=== PATIENT | female | born 1945 | race Caucasian/White ===

== ENCOUNTER 2025-03-08 14:00 | Outpatient (RCR) | payer MEDICARE, SELFPAY ==
[2025-03-01 13:36] VITALS: BP 125/62; PULSE 79; RESP 18; TEMP 36.4; BMI 20.5
--- NOTE | 2025-03-01 14:28 | WC ---
PHOTO 03/01/25 RIGHT GREAT TOE
--- NOTE | 2025-03-01 15:23 | HP.PCM_ITS ---
History of Present Illness Date of Service: 03/01/25 Chief Complaint: Full-thickness wound dorsal aspect first metatarsal phalangeal joint right foot History of Wound: Small full-thickness wound to the dorsal aspect of the first metatarsophalangeal joint right foot Progress of Wound: Patient is a 80-year-old female presenting to clinic today with a chief complaint of full-thickness wound to the dorsal aspect of the big toe joint of the right foot. Patient states that it is painful with touch and while at rest. She does have swelling in the right lower extremity when compared to the left. She was referred by her primary care doctor for continued treatment and care. Patient admits to finishing a course of Augmentin 875 twice daily for 7 days which was prescribed for 10 days due to diarrhea but has now improved. Treatment has been conservative at this time. She denies any debridement of the full-thickness wound. She denies trauma. Denies constitutional symptoms. No other pedal complaints at this time. [facility] Home Medications Medication Instructions Recorded Last Taken Type amlodipine 2.5 mg tablet 2.5 mg PO DAILY 03/01/25 Unk nown History apixaban 5 mg tablet (Eliquis) 5 mg PO BID 03/01/25 Un known History atovaquone 750 mg/5 mL oral 1,500 mg PO DAILY 03/01/25 Unknown History suspension blood sugar diagnostic (Contour 03/01/25 Unknown Hist ory Next Test Strips) cyclobenzaprine 5 mg tablet 5 mg PO QHS PRN PRN muscle spasm 03/01/25 Unknown History ezetimibe 10 mg tablet 10 mg PO DAILY 03/01/25 Unkn own History finerenone 10 mg tablet (Kerendia) 10 mg PO DAILY 02/14 02/08 Unknown History furosemide 20 mg tablet 20 mg PO QODAY 03/01/25 Unkn own History gabapentin 100 mg capsule 100 mg PO QHS 03/01/25 Unkno wn History icosapent ethyl 1 gram capsule 2 g PO BID 03/01/25 Unk nown History (Vascepa) linagliptin 2.5 mg-metformin ER tab PO 03/01/25 Unknow n History 1,000 mg tablet,extended release 24 hr (Jentadueto XR) mupirocin 2 % topical ointment topical TID 03/01/25 Un known History pantoprazole 40 mg tablet,delayed 40 mg PO 03/01/25 Un known History release rosuvastatin 10 mg tablet 10 mg PO DAILY 03/01/25 Unkn own History tiotropium bromide 2.5 2 puff inhalation DAILY 02/14 02/08 Unknown History mcg/actuation mist for inhalation (Spiriva Respimat) Allergy/AdvReac Type Severity Reaction Status Date / Time blue dye Allergy Severe Anaphylaxis Verified 03/01/25 14:22 Sulfa (Sulfonamide Allergy Rash Verified 03/01/25 14:22 Antibiotics) Social History Smoking Status: Never smoker Vital Signs Vital Signs Vital Signs: 03/01/25 13:36 Temperature 97.6 F L Temperature Source Temporal Pulse Rate 79 Respiratory Rate 18 Blood Pressure 125/62 H Blood Pressure Mean 83 Blood Pressure Source Monitor Blood Pressure Position Sitting Blood Pressure Location Left Arm Oxygen Delivery Method Room Air Weight Weight: 59.421 kg Body Mass Index (BMI) 20.5 Physical Exam Narrative Vascular: DP and PT pulses are faintly palpable to the right lower extremity. CFT is delayed. Nonpitting edema appreciated to the right lower extremity when compared to the left. No evidence of hemosiderin deposits are appreciated. Neurological: Light touch is intact. Patient does respond to painful stimuli. Dermatological: Full-thickness wound to the dorsal aspect of the first metatarsal phalangeal joint right foot measuring 0.2 x 0.3 x 0.1 cm. Wound base is granular with no sign of infection. Erythema is blanchable as well as dependent. Excisional debridement down to including subcutaneous tissue with a number 1 mm dermal curette to the full-thickness wound dorsal aspect first metatarsophalangeal joint right foot without incident. Predebridement with sanguinous crust. Postdebridement measurement 0.2 x 0.3 x 0.1 cm. Musculoskeletal: Mild pain to palpation of the full-thickness wound right foot. No pain with calf pressure. Debridement Note Debridement Note Debridement Free Text: Excisional debridement down to including subcutaneous tissue with a number 1 mm dermal curette to the full-thickness wound dorsal aspect first metatarsophalangeal joint right foot without incident. Predebridement with sanguinous crust. Postdebridement measurement 0.2 x 0.3 x 0.1 cm. Post-Debridement Measurements and Additional Note: Post-Debridement Measurements/Treatment WC - Nurse 1 - General Ulcer Assessment Start: 03/01/25 13:36 Freq: Status: Active Protocol: EDUARD.LINDA Activity Type Activity Date Activity User E-sign Co-sign Detail Recorded Client Recorded Date Recorded By Document 03/01/25 13:36 KW [id number] 03/01/25 13:59 KW 03/01/25 13:36 WC - Today's Visit Information Type of service Initial Visit Arrival Mode Ambulatory Accompanied by son- aimee Patient Identification Verified (Name & Yes ) Height and Weight Height 5 ft 7 in Weight 59.421 kg Weight in Pounds 131.0 lbs Weight Measurement Method Estimated by Patient Body Mass Index (BMI) 20.5 BMI Classification Normal Vital Signs Temperature (97.8 F-99.1 F) 97.6 F L Temperature Source Temporal Pulse Rate (60-100) 79 Pulse Location Monitor Respiratory Rate (12-18) 18 Respiratory rate source Observation Oxygen Delivery Method Room Air Blood Pressure (90/60-120/80) 125/62 H Blood Pressure Mean 83 Source Monitor Position Sitting Blood Pressure Location Left Arm History Since Last Visit- (Skip if this is Patient's initial visit) Left Footwear Regular Shoe Right Footwear Regular Shoe Pain Scale: 0-10 Numeric Is Patient Pain Free? No RT FOOT -Description Burning,Aching, Cramping -Radiation Location CALF -Alleviating Factors/Interventions Medication -Effectiveness of Alleviating Factor/ Minimally Intervention effective Lower Extremity Assessment/ Foot Assessment/ Toe Nail Assessment Left -Posterior Tibial Doppler Inaudible -Dorsalis Pedis Doppler Monophasic -Extremity Color Pale -Hair Growth on Legs No -Hair Growth on Toes No -Temperature of Extremity Cool -Thick No -Discolored No -Deformed No -Improper Length & Hygeine No Right -Posterior Tibial Doppler Inaudible -Dorsalis Pedis Doppler Monophasic -Extremity Color Pale -Hair Growth on Legs No -Hair Growth on Toes No -Temperature of Extremity Cool -Thick No -Discolored No -Deformed No -Improper Length & Hygeine No Neuropathy Assessment Feet - Top Side and Bottom <Entered> (a) Communication Assessment Preferred language [place]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 Able to Read Yes Able to Write Yes Communication Tools None Caregiver Communication Skills No Impairment Impairment Right Hearing Abillity Normal Left Hearing Abillity Normal Visual Assistive Devices None Teaching Assessment Preferences Verbal,Written, Demonstration Barriers to Learning None Readiness To Learn Excellent Willingness to Engage in Self Management High Activies Readiness to Engage in Self Management High Activities Anxiety Level Calm Cooperation Cooperative Perception Coherent Interest in Health Problem Asks Questions Education Importance Acknowledges Need Does Patient Smoke tobacco or other No substances Smoking Status Never smoker Is Patient Diabetic Yes Functional Assessment Recent Decline in Ability to Perform Denies Any Declines (a) 1 - - - 2 - + + WC - Nurse 1 - General Ulcer Measurement Start: 03/01/25 13:36 Freq: Status: Active Protocol: Activity Type Activity Date Activity User E-sign Co-sign Detail Recorded Client Recorded Date Recorded By Document 03/01/25 13:36 [id number] 03/01/25 13:59 03/01/25 13:36 Wound Center Nurse 1 #1 RT HALLUX -Current Size (cm) - Length 0.1 -Current Size (cm) - Width 0.1 -Current Size (cm) - Depth 0 -Total Square Cm 0.01 -Date of Last Picture (Recall this 03/01/25 field) -Exudate Amt None Present -Wound Margin Distinct, Outline Attached -Texture (Lady-wound Skin Appearance) Assessed -Moisture (Lady-wound Skin Appearance) Assessed -Color (Lady-wound Skin Appearance) Assessed -Temperature (Lady-wound Skin No Abnormality Appearance) (Pt Warm) -Tenderness on Palpation (Lady-wound No Skin Appearance) -Ulcer Cleansing Soap and Water -Foul Odor after Cleansing No -Anesthetic Used 5% Lidocaine Gel Right Calf (cm) 27 Right Ankle (cm) 19.5 WC - Nurse 2 - General Ulcer CM Notes Start: 03/01/25 13:36 Freq: Status: Active Protocol: Activity Type Activity Date Activity User E-sign Co-sign Detail Recorded Client Recorded Date Recorded By Document 03/01/25 14:13 [id number] [id number] 03/01/25 14:18 03/01/25 14:13 Wound Center Nurse 2 #1 RT HALLUX -Time 14:17 -Correct Patient Yes -Correct Side, Site, Position Yes -Correct Procedure Yes -Procedure Performed Yes -Type of Procedure Debridement -Clinical Debridement Subcutaneous -Tissue Removed Subcutaneous -Post Debridement (cm) - Length 0.2 -Post Debridement (cm) - Width 0.3 -Post Debridement (cm) - Depth 0.1 -Total Square (Post) (cm) 0.06 -Area of Debridement (cm) - Length 0.2 -Area of Debridement (cm) - Width 0.3 -Total Square (Area) (cm) 0.06 -Tunneling No -Undermining/Tunneling No -Circular Undermining No -Wound/Ulcer Outcome Not Healed -Ulcer Cleansing Rinsed/ Irrigated with Saline -Foul Odor after Cleansing No -Bioengineered Tissue No -Bleeding Controlled with Pressure -Treatment Response Procedure Tolerated Well -Offloading No -Debridement - Subq, 1st 20sq cm Yes Pain Scale: 0-10 Numeric Is Patient Pain Free? Yes Assessment/Plan Assessment/Plan (1) Non-pressure chronic ulcer of other part of right foot with fat layer exposed: CODE(S): L97.512 - Non-pressure chronic ulcer of other part of right foot with fat layer exposed PLAN: Patient was examined and evaluated. All findings were discussed with the patient. All questions were answered to the patient's satisfaction. Excisional debridement down to including subcutaneous tissue with a number 1 mm dermal curette to the full-thickness wound dorsal aspect first metatarsophalangeal joint right foot without incident. Predebridement with sanguinous crust. Postdebridement measurement 0.2 x 0.3 x 0.1 cm. There is white plain and patted dry. Triple antibiotic and sterile Band-Aid was applied followed by Tubigrip. Will move forward with authorization of the patient insurance for arterial and venous studies to rule out any type of artery or venous insufficiency. At this time the patient is not showing any concern for infection to the dorsal aspect of the right foot. The erythema around the wound is dependent and inflammatory in nature. The patient will need compression as we continue treatment. Regarding the patient need to move forward with back surgery I do not see any limitations that would stop the presurgical planning. Follow-up at the wound care center with Dr. Francisco in 1 week. (2) Other specified peripheral vascular diseases: CODE(S): I73.89 - Other specified peripheral vascular diseases
--- NOTE | 2025-03-07 09:06 | VDLE_ITS ---
Reason For Study Reason For Study: Edema, Foot Ulcer RIGHT LEFT CFV is compressible, spontaneous, phasic, competent CFV is compressible, spontaneous, phasic, competent, and demonstrates normal augmentation. and demonstrates normal augmentation. FV is compressible, spontaneous, phasic, competent FV is compressible, spontaneous, phasic, competent and demonstrates normal augmentation. and demonstrates normal augmentation. POP V is compressible, spontaneous, phasic, competent POP V is compressible, spontaneous, phasic, competent and demonstrates normal augmentation. and demonstrates normal augmentation. T/P Trunk is compressible. T/P Trunk is compressible. PTV is compressible. PTV is compressible. RT PerV is compressible. LT PerV is compressible. SFJ is INCOMPETENT and measures 0.52 cm. SFJ is competent and measures 0.69 cm. GSV proximal thigh measures 0.34x0.39 cm. GSV proximal thigh measures 0.22x0.18 cm. GSV at knee measures 0.22x0.20 cm. GSV at knee measures 0.17x0.16 cm. GSV is competent throughout. GSV is competent throughout. SSV mid calf is competent and measures 0.17x0.18 cm. SSV mid calf is competent and measures 0.15x0.18 cm. Procedure Exam performed in department. This is a venous duplex using B-mode, color flow and spectral Doppler. The exam was diagnostic. Patient was scanned in reverse Trendelenburg position during reflux assessment. VL/Venous Duplex US - Mode Extrem Interpretation Summary Deep veins of the lower extremities are bilaterally patent and compressible seg mentally. There is no evidence of deep vein thrombosis on either side. Valvular competence appears intact within the p roximal deep venous systems bilaterally. The great saphenous veins appear bilaterally patent and compressible segmentall y. The right sapheno-femoral junction is incompetent . The left sapheno-femoral junction is competent . Valvular compete nce appears to be intact segmentally within the great saphenous veins bilaterally. Small saphenous veins are patent and competent bilaterally. Ordering Physician: Emil Francisco Referring Physician: Celia Al Performed By: Monique Cuellar RVT
--- NOTE | 2025-03-07 09:06 | ART_ITS ---
Reason For Study Reason For Study: Edema, Rt Foot ulcer Procedure A bilateral lower extremity continuous wave Doppler with analog waveform analysis,segmental pressures,and ankle brachial indexes without exercise. Preliminary report given to [facility] Nurse. Left Segmental Pressures Left brachial= 178mmHg. Left calf = 182mmHg. Left posterior tibial artery = 117mmHg. Left dorsalis pedis artery = 110mmHg. Left digit = 58 mmHg. The left dorsalis pedis waveforms are triphasic. The left posterior tibial artery waveforms are biphasic. Right Segmental Pressures Right brachial= 177mmHg. Right low thigh = 46mmHg. Right calf = 110mmHg. Right posterior tibial artery = 21mmHg. Right dorsalis pedis artery = 39mmHg. The right dorsalis pedis waveforms are monophasic. The right posterior tibial artery waveforms are monophasic. Indices The right ankle brachial index by the dorsalis pedis is 0.22. The right ankle brachial index by the posterior tibial artery is 0.12. The left ankle brachial index by the dorsalis pedis is 0.62. The left ankle brachial index by the posterior tibial artery is 0.66. The left digital-brachial index is 0.33. VL/Lower Ext Art Exam w/o Exercis Interpretation Summary Monophasic Doppler waveforms are noted at ankle level on the right. Biphasic an d triphasic Doppler waveforms are noted at ankle level on the left. Pulse-volume recordings appear diminished at all le vels on the right, and at digital level on the left. The resting right ankle-brachial index is severely diminished. The resting left ankle-brachial index is moderately diminished. The right digital-brachial index was not determined. The left digital-brachial index is moderately to severely diminished. 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 There is evidence of [id number] multi-segmental arterial occlu sive disease in the left lower extremity. Ordering Physician: Emil Francisco Referring Physician: Celia Al DO Performed By: GOKUL VASQUEZ RVT
--- NOTE | 2025-03-08 07:38 | WC ---
on 03/07/25 dr hyman requested pt be referred to vascular regarding arterial study results, to be seen constance. referral faxed over, chichi allan updated, pt made aware. pt has appt at vascular today, prior to wound center appt this afternoon.
[2025-03-08 14:27] VITALS: BP 135/59; PULSE 79; RESP 18; TEMP 36.6; BMI 20.5
--- NOTE | 2025-03-08 16:47 | PCM.WC.PN ---
History of Present Illness Date of Service: 03/08/25 Chief Complaint: Full-thickness wound dorsal aspect first metatarsal phalangeal joint right foot History of Wound: Small full-thickness wound to the dorsal aspect of the first metatarsophalangeal joint right foot Progress of Wound: Healed full-thickness wound to the right dorsal aspect of the first metatarsal phalangeal joint. Subjective Subjective Patient is a 80-year-old female presenting to clinic today for follow-up evaluation of full-thickness wound to the dorsal aspect of the first metatarsophalangeal joint right foot. Patient states the wound is healed. She did get vascular studies yesterday that show evidence of severe arterial disease. She did follow-up with vascular surgery today and will be getting a CTA next upcoming days to weeks for evaluation for much-needed treatment due to her decreased blood flow to the right lower extremity. Patient is very grateful for her care. Denies trauma. Denies constitutional symptoms. No other pedal complaints at this time. Objective Data Objective Data Vital Signs: Vital Signs Temp Pulse Resp BP O2 Del Method 97.9 F 79 18 135/59 H Room Air 03/08/25 14:27 03/08/25 14:27 03/08/25 14:27 03/08/25 14:27 03/01/25 13:36 Oxygen Delivery Method Room Air Weight: 59.421 kg Body Mass Index (BMI) 20.5 Radiography Diagnostic Testing: Radiology Impression Extremity Arterial Study 03/07/25 09:06 Interpretation Summary Monophasic Doppler waveforms are noted at ankle level on the right. Biphasic and triphasic Doppler waveforms are noted at ankle level on the left. Pulse-volume recordings appear diminished at all levels on the right, and at digital level on the left. The resting right ankle-brachial index is severely diminished. The resting left ankle-brachial index is moderately diminished. The right digital-brachial index was not determined. The left digital-brachial index is moderately to severely diminished. There is evidence of severe arterial occlusive disease in the right lower extremity, with evidence of arterial inflow disease. There is evidence of [id number] multi-segmental arterial occlusive disease in the left lower extremity. Ordering Physician: Emil Francisco Referring Physician: Celia Al DO Performed By: MONIQUE VASQUEZ RVT Venous Doppler Study 03/07/25 09:06 Interpretation Summary Deep veins of the lower extremities are bilaterally patent and compressible segmentally. There is no evidence of deep vein thrombosis on either side. Valvular competence appears intact within the proximal deep venous systems bilaterally. The great saphenous veins appear bilaterally patent and compressible segmentally. The right sapheno-femoral junction is incompetent . The left sapheno-femoral junction is competent . Valvular competence appears to be intact segmentally within the great saphenous veins bilaterally. Small saphenous veins are patent and competent bilaterally. Ordering Physician: Emil Francisco Referring Physician: Celia Al Performed By: Monique Vasquez RVT Physical Exam Narrative Vascular: DP and PT pulses are faintly palpable to the right lower extremity. CFT is delayed. Nonpitting edema appreciated to the right lower extremity when compared to the left. No evidence of hemosiderin deposits are appreciated. Neurological: Light touch is intact. Patient does respond to painful stimuli. Dermatological: Full-thickness wound to the dorsal aspect of the right foot first metatarsal phalangeal joint is now healed. No concern for infection. Musculoskeletal: No pain on Compression Debridement Note Debridement Note Post-Debridement Measurements and Additional Note: Post-Debridement Measurements/Treatment WC - Nurse 1 - General Ulcer Assessment Start: 03/01/25 13:36 Freq: Status: Active Protocol: EDUARD.LOWEXT Activity Type Activity Date Activity User E-sign Co-sign Detail Recorded Client Recorded Date Recorded By Document 03/01/25 13:36 KW [id number] 03/01/25 13:59 KW Document 03/08/25 14:27 DL [id number] 03/08/25 14:31 DL 03/01/25 03/08/25 13:36 14:27 WC - Today's Visit Information Type of service Initial Visit Follow-up Visit (Physician/PARACHUTE/COMBATANT DIVER OFFICER ) Arrival Mode Ambulatory Ambulatory,Cane Transfer Assistance None Accompanied by sonStorm yu Patient Identification Verified (Name & Yes Yes ) Patient Requires Transmission-Based No Precautions Height and Weight Height 5 ft 7 in Weight 59.421 kg Weight in Pounds 131.0 lbs Weight Measurement Method Estimated by Patient Body Mass Index (BMI) 20.5 20.5 BMI Classification Normal Normal Vital Signs Temperature (97.8 F-99.1 F) 97.6 F L 97.9 F Temperature Source Temporal Temporal Pulse Rate (60-100) 79 79 Pulse Location Monitor Monitor Respiratory Rate (12-18) 18 18 Respiratory rate source Observation Observation Oxygen Delivery Method Room Air Blood Pressure (90/60-120/80) 125/62 H 135/59 H Blood Pressure Mean (mm Hg) 83 84 Source Monitor Monitor Position Sitting Blood Pressure Location Left Arm History Since Last Visit- (Skip if this is Patient's initial visit) Have you changed medications since your No last visit? Any new allergies or adverse reactions No Had a fall/change in ADL's that may No increase risk of falls Signs or symptoms of abuse and/or No neglect since last visit Have you been in the hospital since your No last visit? Has dressing in place as prescribed Yes Has compression in place as prescribed No Has offloadiing in place as prescribed N/A Experienced any changes in pain level or No management Left Footwear Regular Shoe Regular Shoe Right Footwear Regular Shoe Regular Shoe Pain Scale: 0-10 Numeric Is Patient Pain Free? No Yes RT FOOT -Description Burning,Aching, Cramping -Radiation Location CALF -Alleviating Factors/Interventions Medication -Effectiveness of Alleviating Factor/ Minimally Intervention effective Lower Extremity Assessment/ Foot Assessment/ Toe Nail Assessment Left -Posterior Tibial Doppler Inaudible -Dorsalis Pedis Doppler Monophasic -Extremity Color Pale -Hair Growth on Legs No -Hair Growth on Toes No -Temperature of Extremity Cool -Thick No -Discolored No -Deformed No -Improper Length & Hygeine No Right -Posterior Tibial Doppler Inaudible -Dorsalis Pedis Doppler Monophasic -Extremity Color Pale -Hair Growth on Legs No -Hair Growth on Toes No -Temperature of Extremity Cool -Thick No -Discolored No -Deformed No -Improper Length & Hygeine No Neuropathy Assessment Feet - Top Side and Bottom <Entered> (a) Communication Assessment Preferred language Samoan Dog Races Manager Required No Able to Read Yes Able to Write Yes Communication Tools None Caregiver Communication Skills No Impairment Impairment Right Hearing Abillity Normal Left Hearing Abillity Normal Visual Assistive Devices None Teaching Assessment Preferences Verbal,Written, Demonstration Barriers to Learning None Readiness To Learn Excellent Willingness to Engage in Self Management High Activies Readiness to Engage in Self Management High Activities Anxiety Level Calm Cooperation Cooperative Perception Coherent Interest in Health Problem Asks Questions Education Importance Acknowledges Need Does Patient Smoke tobacco or other No substances Smoking Status Never smoker Is Patient Diabetic Yes Functional Assessment Recent Decline in Ability to Perform Denies Any Declines (a) 1 - - - 2 - + + WC - Nurse 1 - General Ulcer Measurement Start: 03/01/25 13:36 Freq: Status: Active Protocol: Activity Type Activity Date Activity User E-sign Co-sign Detail Recorded Client Recorded Date Recorded By Document 03/01/25 13:36 KW [id number] 03/01/25 13:59 KW Document 03/08/25 14:27 DL [id number] 03/08/25 14:31 DL 03/01/25 03/08/25 13:36 14:27 Wound Center Nurse 1 #1 RT HALLUX -Current Size (cm) - Length 0.1 0.1 -Current Size (cm) - Width 0.1 0.1 -Current Size (cm) - Depth 0 0.1 -Total Square Cm 0.01 0.01 -Date of Last Picture (Recall this 03/01/25 field) -Exudate Amt None Present None Present -Wound Margin Distinct, Flat & Intact Outline Attached -Granulation Amt Large (67-100%) -Granulation Quality Pale -Necrosis Amt None Present (0 %) -Structure Exposed N/A -Texture (Lady-wound Skin Appearance) Assessed Scarring -Moisture (Lady-wound Skin Appearance) Assessed No Abnormality -Color (Lady-wound Skin Appearance) Assessed No Abnormality -Temperature (Lady-wound Skin No Abnormality No Abnormality Appearance) (Pt Warm) (Pt Warm) -Tenderness on Palpation (Lady-wound No No Skin Appearance) -Ulcer Cleansing Soap and Water Wound Cleanser -Foul Odor after Cleansing No No -Anesthetic Used 5% Lidocaine Gel Right Calf (cm) 27 Right Ankle (cm) 19.5 WC - Nurse 2 - General Ulcer CM Notes Start: 03/01/25 13:36 Freq: Status: Active Protocol: Activity Type Activity Date Activity User E-sign Co-sign Detail Recorded Client Recorded Date Recorded By Document 03/01/25 14:13 [id number] 03/01/25 14:18 Document 03/08/25 14:35 [id number] 03/08/25 14:36 03/01/25 03/08/25 14:13 14:35 Wound Center Nurse 2 #1 RT HALLUX -Time 14:17 -Correct Patient Yes Yes -Correct Side, Site, Position Yes No -Correct Procedure Yes No -Procedure Performed Yes No -Type of Procedure Debridement -Clinical Debridement Subcutaneous -Tissue Removed Subcutaneous -Post Debridement (cm) - Length 0.2 0.1 -Post Debridement (cm) - Width 0.3 0.1 -Post Debridement (cm) - Depth 0.1 0.1 -Total Square (Post) (cm) 0.06 0.01 -Area of Debridement (cm) - Length 0.2 0.1 -Area of Debridement (cm) - Width 0.3 0.1 -Total Square (Area) (cm) 0.06 0.01 -Tunneling No -Undermining/Tunneling No -Circular Undermining No -Wound/Ulcer Outcome Not Healed Not Healed -Ulcer Cleansing Rinsed/ Irrigated with Saline -Foul Odor after Cleansing No -Bioengineered Tissue No -Bleeding Controlled with Pressure -Treatment Response Procedure Tolerated Well -Offloading No -Debridement - Subq, 1st 20sq cm Yes Pain Scale: 0-10 Numeric Is Patient Pain Free? Yes Yes - Nurse 3 - General Ulcer D/C NN Start: 03/01/25 13:36 Freq: Status: Active Protocol: Activity Type Activity Date Activity User E-sign Co-sign Detail Recorded Client Recorded Date Recorded By Document 03/08/25 14:43 DL [id number] 03/08/25 14:45 DL 03/08/25 14:43 Wound Care Center Nurse 3 #1 RT HALLUX -Ulcer Cleansing Rinsed/ Irrigated with Saline -Foul Odor after Cleansing No -Other Dressing NO DRESSING BLE -Tubular Bandage Single Layer -Size of Tubigrip Used Size D -Size D ($) 1 Treatment Response Procedure Tolerated Well Pain Scale: 0-10 Numeric Is Patient Pain Free? Yes WC - Visit Discharge Discharge Condition Stable Ambulatory Status Ambulatory,Cane Transportation Private Auto Assessment/Plan Assessment/Plan (1) Non-pressure chronic ulcer of other part of right foot with fat layer exposed: CODE(S): L97.512 - Non-pressure chronic ulcer of other part of right foot with fat layer exposed PLAN: Patient was examined and evaluated. All findings were discussed with the patient. All questions were answered to the patient satisfaction. Patient's arterial studies show the ankle-brachial index to be 0.22 to the right lower extremity, and 0.66 to left lower extremity. Review of the patient's arterial studies show evidence of severe arterial disease to the right lower extremity. Patient did follow-up with vascular surgery today and will be moving forward with more advanced studies like a CTA to see where there is blockages in the vasculature to the right lower extremity and then follow-up with Dr. Nava for surgical consultation and surgical planning. Patient is very grateful for her care. Tubigrip's were dispensed to the bilateral lower extremity. The patient will follow-up with Dr. Francisco in 2 weeks at the wound care center. (2) Other specified peripheral vascular diseases: CODE(S): I73.89 - Other specified peripheral vascular diseases
== END 2025-03-16 23:59 | disposition home or self-care (01) ==
LOC: WC 14:00
PROVIDERS: PCP Student in an Organized Health Care Education/Training Program; Referring Provider Student in an Organized Health Care Education/Training Program; Visit Provider Podiatrist Foot & Ankle Surgery
DX: I73.89 Other specified peripheral vascular diseases (principal); L97.512 Non-pressure chronic ulcer of other part of right foot with fat layer exposed; M79.89 Other specified soft tissue disorders; R60.0 Localized edema
CPT/HCPCS: 11042; 93923; 93970; 99203; 99213; G0463

== ENCOUNTER 2025-03-11 18:51 | Emergency (ER) | payer MEDICARE, SELFPAY ==
[2025-03-11] VITALS (9 sets, daily range): BP systolic 113–190; BP diastolic 63–96; PULSE 94–115; RESP 14–25; TEMP 36.6–36.9; O2SAT 94–100; BMI 22.4
[2025-03-11] MEDS: 0.9% Normal Saline (1000mL) 1,000 ML 999 ML IV (19:22)
--- OUTSIDE RECORDS SUMMARY | 2025-03-11 19:22 | XMS RPT_ITS | CCD ---
Author Organization [facility] Care Team Providers Care [place] Worker Name Role Phone Felipe DEWATERER OPERATOR-WINDOWS TECHNICAL SPECIALISTElis Unavailable [phone] Al, Celia Unavailable Unavailable Al, Celia N Unavailable Unavailable Al, Celia Unavailable Unavailable Ryan Gerard Unavailable Unavailable Al, Celia Primary Care Provider Pcp, No Primary Care Provider Unavailabl e Al, Celia N Unavailable Unavailable Al DO, Celia Unavailable Unavailable Al, Celia N Unavailable Unavailable Al, Celia N Unavailable Unavailable Unavailable Al DO, Celia Primary Care Provider [phone] Unavailable Unavailable Unavailable Unavailable Unavailable Primary Care Provider Unavailabl e Al DO, Celia Primary Care Provider Al, Celia Referring Unavailable Al, Celia Primary Care Unavailable RASHI JEROME Attending Unavailable Al, Dr. Celia Teran Referring Unavail able Al, Dr. Celia Teran Attending Unavail able Al, Dr. Celia Teran Attending Unavail able GLENNA MCKOY Referring Unavailable GLENNA MCKOY Attending Unavailable Al DO, Celia Christi Primary Care Provider [phone] Al DO, Celia N Unavailable Rsahi Jerome MD Unavailable [phone] Al DO, Celia Primary Care Provider [phone] Angeline Priest MD, Keven Unavailable [phone] Carmen Licona Attending Unavailable Carmen Licona Referring Unavailable VIDYA, DO RYAN DALTON Referring Unavai lable VIDYA, DO RYAN DALTON Attending Carmen Glover Referring Unavailable Carmen Licona Attending Unavailable Dr. Bishnu Sharma Attending Unavailable TIMDA, DO JEREL MONIQUE Referring Unavai lable TIMAR, DO JEREL MONIQUE Attending Unavai lable Al DO, Celia Primary Care Provider Angeline Priest MD, Keven Unavailable Al DO, Celia Primary Care Provider Queenie OCHOA, Rashi Borjas Unavailable NAI ESQUIVEL Referring Unavailable Unavailable Primary Care Provider Unavailwilla e Queenie OCHOA, Rashi Borjas Unavailable Sammie OCHOA, Samuel Maher Unavailable Chava ROLLINS, Juany Unavailable Unavailable Aleena ROLLINS, Joe Unavailable Unavailable Angeline Priest MD, Keven Unavailable Miki OCHOA, Jhoan Morgan Unavailable Al DO, Celia N Primary Care Provider [phone] Al DO, Celia N Unavailable [phone] Sammie OCHOA, Samuel Maher Unavailable Chava ROLLINS, Juany Unavailable Unavailable Al DO, Celia Primary Care Provider AL, CELIA N Referring Unavailable AL, CELIA N Primary Care Unavailable JEREL FRASER Referring Unavailable AL, CELIA N Primary Care Unavailable Al DO, Celia N Unavailable [phone] AL, CELIA N Primary Care Unavailable AL, CELIA N Primary Care Unavailable AL, CELIA N Primary Care Unavailable SARAH LOPEZ Attending Unavailabl e AL, CELIA N Referring Unavailable AL, CELIA N Primary Care Unavailable AL, CELIA N Primary Care Unavailable AL, CELIA N Primary Care Unavailable AL, CELIA N Primary Care Unavailable AL, CELIA N Primary Care Unavailable AL, CELIA N Primary Care Unavailable AL, CELIA N Primary Care Unavailable AL, CELIA N Primary Care Unavailable HUAN CALDWELL Attending Unavailable AL, CELIA N Referring Unavailable AL, CELIA N Primary Care Unavailable Unavailable Primary Care Provider Unavailabl e Al, Celia Nolan Primary Care Provider Rashi Jerome Unavailable [phone] Latasha OCHOA, Nickolas Unavailable Adel DPM, Dr. Stein Attending Provider Al DO, Dr. Celia Gutierrez Primary Care Provider Al DO, Dr. Celia Gutierrez Referring Provider Gretta Leung Attending Provider Francisco DPM, Dr. Stein Referring Provider Gretta Yo Attending Unavailable Al, Celia N Primary Care Unavailable Rosalee Francisco Referring Unavailable Rosalee Francisco Attending Unavailable Al, Celia N Referring Unavailable Al, Celia N Primary Care Unavailable AL, CELIA Primary Care Unavailable KRAYNICK KRISTY Referring Unavailable KRAYNICK KRISTY Attending Unavailable AL, CELIA Primary Care Unavailable KRAYNICK, KRISTY Referring Unavailable KRAYNICKRODRIGUEKRISTY Attending Unavailable AL, CELIA Primary Care Unavailable LEIGH, MEET Attending Unavailable LEIGH, MEET Admitting Unavailable AL, CELIA Primary Care Unavailable NICKOLAS PAAGN Attending Unavailable AL, CELIA Primary Care Unavailable RASHI JEROME Attending Unavailable AL, CELIA Primary Care Unavailable MARCIA CORREA Attending Unavailable AL, CELIA Primary Care Unavailable MARCIA CORREA Referring Unavailable MARCIA CORREA Attending Unavailable AL, CELIA Primary Care Unavailable NATALIA-CHAVEZ, STEPHANIE Attending Unava ilable AL, CELIA Primary Care Unavailable MARCIA CORREA Attending Unavailable AL, CELIA Primary Care Unavailable NATALIA-CHAVEZ, STEPHANIE Referring Unava ilable NATALIA-CHAVEZ, STEPHANIE Attending Unava ilable AL, CELIA Primary Care Unavailable NATALIA-CHAVEZ, STEPHANIE Referring Unava ilable NATALIA-CHAVEZ, STEPHANIE Attending Unava ilable AL, CELIA Primary Care Unavailable NATALIA-CHAVEZ, STEPHANIE Referring Unava ilable NATALIA-CHAVEZ, STEPHANIE Attending Unava ilable AL, CELIA Primary Care Unavailable REJI, GI Referring Unavailable REJI GI Attending Unavailable AL, CELIA Primary Care Unavailable NATALIA-CHAVEZ, STEPHANIE Referring Unava ilable NATALIA-CHAVEZ, STEPHANIE Attending Unava ilable AL, CELIA Primary Care Unavailable RASHI JEROME Referring Unavailable QUEENIE, RASHI Attending Unavailable AL, CELIA Primary Care Unavailable KRISTY DORAN Referring Unavailable LEIGH, MEET Attending Unavailable AL, CELIA Primary Care Unavailable NATALIA-CHAVEZ, STEPHANIE Attending Unava ilable AL, CELIA Primary Care Unavailable LEIGH, MEET Attending Unavailable AL, CELIA Primary Care Unavailable NATALIA-CHAVEZ, STEPHANIE Attending Unava ilable PARRISH CHAIDEZ Attending Unavailable AL, CELIA Primary Care Unavailable AL, CELIA Primary Care Unavailable MUDRAKOLA, NICKOLAS Referring Unavailable MUDRAKOLA, NICKOLAS Attending Unavailable AL, CELIA Primary Care Unavailable NATALIA-CHAVEZ, STEPHANIE Referring Unava ilable NATALIA-CHAVEZ, STEPHANIE Attending Unava ilable AL, CELIA Primary Care Unavailable NATALIA-CHAVEZ, STEPHANEI Attending Unava ilable AL, CELIA Primary Care Unavailable NATALIA-CHAVEZ, STEPHANIE Attending Unava ilable AL, CELIA Primary Care Unavailable NATALIA-CHAVEZ, STEPHANIE Attending Unava ilable AL, CELIA Primary Care Unavailable GI MENDOZA Attending Unavailable NATALY WILSON Attending Unavailable REGINALD GARZA Admitting Unavailable AL, CELIA Primary Care Unavailable LORE MOLINA Attending Unava ilable AL, CELIA Primary Care Unavailable NEL TOLEDO Attending Unavailable MOREANANDATDELIANEL Admitting Unavailable AL, CELIA Primary Care Unavailable Franklyn'HALEY CARIAS Attending Unavailable DOMINICK HUGGINS C Referring Unavailable AL, CELIA NOLAN Primary Care Unavailable AL, CELIA NOLAN Primary Care Unavailable DOMINICK HUGGINS Referring Unavailable O'KENNYHALEY Attending Unavailable DOMINICK HUGGINS C Referring Unavailable AL, CELIA NOLAN Primary Care Unavailable AL, CELIA N Attending Unavailable AL, CELIA N Primary Care Unavailable AL, CELIA N Referring Unavailable AL, CELIA N Attending Unavailable AL, CELIA N Primary Care Unavailable AL, CELIA N Referring Unavailable AL, CELIA N Attending Unavailable AL, CELIA N Primary Care Unavailable AL, CELIA N Primary Care Unavailable RYAN GERARD Referring Unavailable AL, CELIA N Attending Unavailable AL, CELIA N Primary Care Unavailable AL, CELIA N Attending Unavailable AL, CELIA N Primary Care Unavailable AL, CELIA N Referring Unavailable AL, CELIA N Attending Unavailable AL, CELIA N Primary Care Unavailable AL, CELIA N Primary Care Unavailable AL, CELIA N Attending Unavailable AL, CELIA N Primary Care Unavailable AL, CELIA N Referring Unavailable AL, CELIA N Attending Unavailable AL, CELIA N Primary Care Unavailable AL, CELIA N Attending Unavailable AL, CELIA N Primary Care Unavailable WAYLON, DOMINICK C Admitting Unavailable WAYLON, DOMINICK C Attending Unavailable WAYLON, DOMINICK C Referring Unavailable AL, CELIA NOLAN Primary Care Unavailable WAYLON, DOMINICK C Attending Unavailable WAYLON, DOMINICK C Attending Unavailable WAYLON, DOMINICK C Referring Unavailable WAYLON, DOMINICK C Referring Unavailable AL, CELIA NOLAN Primary Care Unavailable WAYLON, DOMINICK C Attending Unavailable AL, CELIA NOLAN Primary Care Unavailable AL, CELIA NOLAN Primary Care Unavailable WAYLON, DOMINICK C Referring Unavailable AL, CELIA NOLAN Primary Care Unavailable WAYLON, DOMINICK C Referring Unavailable AL, CELIA NOLAN Primary Care Unavailable WAYLON, DOMINICK C Referring Unavailable AL, CELIA NOLAN Primary Care Unavailable WAYLON, DOMINICK C Referring Unavailable AL, CELIA NOLAN Primary Care Unavailable Allergies Allergy Classification Reported Allergen(s) Allergy Type Date of Onset Reaction(s) Facility iso-sulfan blue (11 sources) iso-sulfan blue; Translations: [Lymphazurin SOLN] Drug Allergy 02-10-20 12 Anaphylaxis, Unknown [facility] Methylene blue (8 sources) Methylene blue Drug Allergy 09-01-19 23 Anaphylaxis [facility] Sulfonamides (antibiotic) (11 sources) Sulfonamides (Antibiotic); Translations: [Sulfa Drugs] Drug Allergy 06-11-20 15 Rash, Unknown [facility] Work Phone: (1 source) sulfacetamide Drug Allergy 02-10-20 12 Rash on Chest [facility] Work Phone: (1 source) LYMPHAZURIN BLUE DYE drug allergy 02-10-20 12 anaphylaxis [facility] Work Phone: (20 sources) iso-sulfan blue; Translations: [Lymphazurin SOLN] Drug Allergy [facility] Work Phone: (20 sources) Sulfonamides (Antibiotic); Translations: [Sulfa Drugs] drug allergy [facility] Work Phone: (20 sources) iso-sulfan blue; Translations: [ISOSULFAN BLUE] Drug Allergy 02-10-20 12 Anaphylaxis, Unknown [place], [place] (4 sources) Sulfonamides (Antibiotic) Propensity to adverse reactions to drug 06-11-20 15 Rash [place], [place] (20 sources) Sulfonamides (Antibiotic); Translations: [SULFA (SULFONAMIDE ANTIBIOTICS)] Drug Allergy 07-18-20 10 Unknown, [facility] Work Phone: (20 sources) iso-sulfan blue Drug Allergy 02-10-20 12 Anaphylaxis [facility] (20 sources) Methylene blue; Translations: [METHYLENE BLUE] Drug Allergy 09-01-19 23 [facility] (20 sources) Methylene blue Drug Allergy 09-01-19 [facility] (20 sources) Adhesive agent; Translations: [ADHESIVE] Drug Allergy 07-18-20 10 [facility] (1 source) Sulfonamides (Antibiotic) Allergy to substance 03-08-20 [facility] (2 sources) blue dye; Translations: [blue dye] Allergy to substance 03-08-20 25 [facility] (1 source) Sulfonamides (Antibiotic) Drug allergy (disorder) 03-08-20 [facility] Repository Medications Current Medications Medication Drug Class(es) Dates Sig (Normalized) Sig (Original) [id number] actuat albuterol 0.09 mg/actuat metered dose inhaler (20 sources) beta2-Adrenergic Agonist Start: 12-29-2024 take 4 puff(s) by inhalation once 4 puff, Inhalation, Once, On [facility] 12/29/24 at 1345, For 1 dose, Administer using an inhaler spacer. Start: 11-10-2024 End: 11-11-2024 take 2 puff(s) by inhalation every six hours as needed for wheezing 2 puff, Inhalation, Every 6 hours PRN, wheezing, Starting on [facility] 11/10/24 at 1522 Start: 08-26-2024 End: 08-29-2024 Start: 01-19-2024 End: 01-22-2024 take 2 puff(s) by inhalation every four hours as needed for wheezing 2 puff, Inhalation, Every 4 hours PRN, wheezing, shortness of breath, Starting on Thu01/19/24 at 1930 Start: 12-04-2023 End: 12-03-2024 take 2 puff(s) by inhalation every four hours as needed for wheezing albuterol (Ventolin HFA) 108 (90 Base) MCG/ACT inhaler Indications: Chronic obstructive pulmonary disease, unspecified COPD type (HCC) Inhale 2 puffs every 4 hours as needed for wheezing or shortness of breath. 8 g 11 12/04/2023 Active Start: 12-04-2023 End: 12-04-2023 albuterol 108 (90 Base) MCG/ ACT inhaler Indications: Pulmonary emphysema, unspecified emphysema type (HCC) albuterol sulfate HFA 90 mcg/actuation aerosol inhaler 18 g 11 12/04/2023 12/04/2023 Discontinued (Duplicate order) Start: 10-29-2023 albuterol 108 (90 Base) MCG/ACT inhaler 4 puff Start: 11-29-2021 take 2 puff(s) by in halation every four to six hours as needed Albuterol Sulfate HFA 108 (90 Base) MCG/ACT Inhalation Aerosol Solution INHALE 2 PUFFS EVERY 4-6 HOURS NEEDED. Quantity: 1 Refills: 0 Ordered: 29-Nov-2021 Ana Rosa Duenas MD Start : 29-Nov-2021 Active Start: 11-29-2021 take 2 puff(s) by in halation every four to six hours as needed Albuterol Sulfate HFA 108 (90 Base) MCG/ACT Inhalation Aerosol Solution INHALE 2 PUFFS EVERY 4-6 HOURS NEEDED. Quantity: 1 Refills: 0 Ordered: 29-Nov-2021 Ana Rosa Duenas MD Start : 29-Nov-2021 Active albuterol HFA (P ROVENTIL HFA, VENTOLIN HFA) 90 mcg/actuation inhaler albuterol sulfate HFA 90 mcg/actuation aerosol inhaler Active albuterol 108 (9 0 Base) MCG/ACT inhaler albuterol sulfate HFA 90 mcg/actuation aerosol inhaler 0 Active Comment on above: albuterol sulfate HF A 90 mcg/actuation aerosol inhaler amLODIPine 2.5 mg oral tablet (20 sources) Dihydropyridine Calcium Channel Luna Start: End: take 1 tablet by mouth once daily amLODIPine (NORVASC) 2.5 mg tablet Take 2.5 mg by mouth once daily. 11/29/2024 12/12/2025 Active Start: 06-24-2018 End: 04-07-2024 take 1 tablet by mouth once daily amLODIPine (Norvasc) 5 mg tablet Indications: Primary hypertension Take 1 tablet (5 mg) by mouth once daily. 90 tablet 01/08/2024 04/07/2024 Active Start: 06-24-2018 End: 08-28-2023 amLODIPine (Norvasc) 10 MG t ablet amlodipine 10 mg tablet 0 02/07/2022 Active amoxicillin 875 mg oral tablet (1 source) Penicillin-class Antibacterial Start: 06-12-2023 End: 06-22-2023 take 1 tablet by mouth twice daily amoxicillin (Amoxil) 875 mg tablet Indications: Acute non-recurrent frontal sinusitis Take 1 tablet (875 mg) by mouth 2 times a day for 10 days. 20 tablet 0 06/12/2023 06/22/2023 Active amoxicillin 875 mg / clavulanate 125 mg oral tablet (12 sources) Penicillin-class Antibacterial Start: 02-20-2025 End: 03-02-2025 take 1 tablet by mouth twice daily amoxicillin-clavul anate (Augmentin) 875-125 mg tablet Indications: Cellulitis of right toe Take 1 tablet (875 mg of amoxicillin) by mouth 2 times a day for 10 days. 20 tablet 02/20/2025 03/02/2025 Active Start: 06-07-2024 End: 06-14-2024 take 1 tablet by mouth twice daily amoxicillin-clavulanate (Augmentin) 875-125 MG tablet Indications: Pulmonary infiltrates Take 1 tablet by mouth 2 times daily for 7 days. 14 tablet 06/07/2024 06/14/2024 Active Start: 02-03-2024 End: 02-08-2024 take 1 tablet by mouth twice daily amoxicillin-pot clavulanate (Augmentin) 875-125 mg tablet Indications: Sialadenitis Take 1 tablet (875 mg) by mouth 2 times a day for 5 days. 10 tablet 02/03/2024 02/08/2024 Active Start: 01-19-2024 End: 01-29-2024 take 1 tablet by mouth twice daily amoxicillin-pot clavulanate (Augmentin) 875-125 mg tablet Indications: Submandibular swelling Take 1 tablet (875 mg) by mouth 2 times a day for 10 days. 20 tablet 01/19/2024 01/29/2024 Active Start: 10-01-2023 End: 10-08-2023 take 1 tablet by mouth twice daily amoxicillin-pot clavulanate (Augmentin) 875-125 mg tablet Indications: Acute maxillary sinusitis, recurrence not specified Take 1 tablet (875 mg) by mouth 2 times a day for 7 days. 14 tablet 0 10/01/2023 10/08/2023 Start: 11-29-2021 End: 04-05-2022 take 1 tablet by mouth once daily Amoxicillin-Pot Clavulanate 875-125 MG Oral Tablet TAKE 1 TABLET EVERY 12 HOURS DAILY. Quantity: 20 Refills: 0 Ordered: 29-Nov-2021 Ana Rosa Duenas MD Start : 29-Nov-2021 End : 05-Apr-2022 Complete Start: 12-12-2017 take 1 tablet by liu once daily Amoxicillin-Pot Clavulanate 875-125 MG Oral Tablet TAKE 1 TABLET EVERY 12 HOURS DAILY. Quantity: 20 Refills: 0 Ryan Gerard DO Start : 12-Dec-2017 Active apixaban 5 mg oral tablet (20 sources) Factor Xa Inhibitor Start: 01-19-2024 End: 11-29-2024 take 1 tablet by mouth twice daily apixaban (ELIQUIS) 5 mg tab(s) Take 5 mg by mouth two times a day. 01/22/2024 Active carvedilol 12.5 mg oral tablet (20 sources) alpha-Adrenergic Luna, beta-Adrenergic Luna Start: 03-25-2024 End: 11-11-2024 take 1 tablet by mouth twice daily at mealtime carvedilol (COREG) 12.5 mg tablet Take 12.5 mg by mouth two times a day with meals. 10/05/2024 Active Start: 01-22-2024 End: 01-21-2025 take 0.5 tablet by mouth twice daily carvedilol (Coreg) 25 mg tablet Take 0.5 tablets (12.5 mg) by mouth 2 times daily (morning and late afternoon). 01/22/2024 01/21/2025 Active Start: 01-21-2024 End: 01-21-2025 take 1 tablet by mouth in the morning carvedilol (Coreg) 25 MG tablet Take 1 tablet (25 mg) by mouth in the morning and 1 tablet (25 mg) in the evening. Take with meals. 60 tablet 11 01/22/2024 01/21/2025 Active Start: 01-21-2024 End: 01-21-2024 carvedilol (Coreg) tablet 12 .5 mg cilostazol 50 mg oral tablet (2 sources) Phosphodiesterase 3 Inhibitor Start: 03-09-2025 cilostazol (PLETAL) 50 mg tablet Take 50 mg by mouth. 03/09/2025 Active cyclobenzaprine hydrochloride 5 mg oral tablet (20 sources) Muscle Relaxant Start: 06-12-2023 End: 03-28-2025 cyclobenzaprine (FLEXERIL) 5 mg tablet Take 1 tablet (5 mg) by mouth as needed at bedtime for muscle spasms. 06/12/2023 Active Comment on above: Take 1 tablet (5 mg) by mouth as needed at bedtime for muscle spasms. ezetimibe 10 mg oral tablet (20 sources) Dietary Cholesterol Absorption Inhibitor Start: 04-04-2023 End: 12-12-2024 take 1 tablet by mouth in the morning ezetimibe (ZETIA) 10 mg tablet Take 1 tablet (10 mg) by mouth in the morning. 07/01/2023 Active Start: 06-15-2019 End: 04-01-2023 ezetimibe (Zetia) 10 MG tabl et daily. 0 02/07/2022 Active Comment on above: Take 1 tablet (10 mg ) by mouth in the morning. 24 hr ferrous sulfate 142 mg extended release oral tablet (6 sources) Ferrous Sulfate 142 mg (45 mg iron) TbER Take by mouth two times a day. Active fexofenadine (3 sources) Histamine-1 Receptor Antagonist Fexofenadine HCl (NATALIYA ALLERGY PO) Take by mouth 0 Active Finerenone (1 source) Start: take 1 tablet by mouth once daily Finerenone (Finerenone 10 Mg Tablet) 10 mg tablet Active 10 mg PO DAILY March 01, 2025 12:00am Finerenone (Kerendia) 10 MG tablet (20 sources) take 1 tablet by mouth once daily Finerenone (Kerendia) 10 MG tablet Take 1 tablet by mouth daily. Active take 1 tablet by mouth once juan carlos y Finerenone (Kerendia) 10 MG tablet Take 1 tablet by mouth daily. 0 Suspended take 1 tablet by mouth once juan carlos y Finerenone (Kerendia) 10 MG tablet Take 1 tablet by mouth daily. 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 90 tablet 3 02/02/2024 Active furosemide 20 mg oral tablet (20 sources) Loop Diuretic Start: 08-27-2024 End: 08-29-2024 40 mg, IntraVENous, 2 times daily, First dose (after last reorder) on 08/27/24 at 0900 Start: 08-26-2024 20 mg, IntraVE Nous, Once, On Thu08/26/24 at 1725, For 1 dose Start: 02-01-2024 End: 12-12-2025 take 1 tablet by mouth every other day furosemide (Lasix) 20 MG tablet Indications: 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) Take 1 tablet (20 mg) by mouth every other day. 15 tablet 11 12/12/2024 12/12/2025 Active Start: 02-01-2024 End: 08-30-2025 take 1 tablet by mouth once daily furosemide (Lasix) 20 mg tablet Take 1 tablet (20 mg) by mouth once daily. 02/01/2024 01/31/2025 Active Start: 01-19-2024 End: 01-20-2024 furosemide (Lasix) injection 80 mg glipiZIDE er 2.5 mg 24 hr extended release oral tablet (7 sources) Sulfonylurea Start: 10-31-2020 glipiZIDE (GLU COTROL XL) 2.5 MG extended release tablet Indications: 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 with 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, without long-term current use of insulin (HCC) Take by mouth 0 10/31/2020 Active Start: 10-31-2020 take 1 tablet by liu th once daily glipiZIDE XL 2.5 MG Oral Tablet Extended Release 24 Hour TAKE 1 TABLET DAILY. Quantity: 90 Refills: 0 Ordered: 03-Jul-2021 Celia Al DO Start : 31-Oct-2020 Active icosapent ethyl 1000 mg oral capsule (20 sources) Start: 03-01-2025 Icosapent Ethy l (Icosapent Ethyl 1 Gram Capsule) 1 gram capsule Active 2 g PO TWICE A DAY March 01, 2025 12:00am Start: 03-17-2019 End: 11-07-2025 icosapent ethyl (VASCEPA) 1 gram capsule TAKE 2 CAPSULES BY MOUTH 2 TIMES DAILY 01/09/2022 Active Comment on above: TAKE 2 CAPSULES BY M OUTH 2 TIMES DAILY KERENDIA 10 mg tablet (20 sources) Start: 08-05-2023 take 1 tablet by mouth once KERENDIA 10 mg tablet Take 1 tablet by mouth every afternoon. 08/05/2023 Active Start: 08-05-2023 take 1 tablet by mouth once KE RENDIA 10 mg tablet Take 1 tablet by mouth every afternoon. 0 08/05/2023 Active Comment on above: Take 1 tablet by liu th every afternoon. 24 hr linagliptin 2.5 mg / metFORMIN hydrochloride 1000 mg extended release oral tablet (20 sources) Biguanide, Dipeptidyl Peptidase 4 Inhibitor Start: take 2.5-1000 tablets by mouth every twenty-four hours Linagliptin-Metfo rmin [Linagliptin 2.5 Mg-Metformin Er 1,000 Mg Tablet,Extended Release 24 Hr] (Linagliptin 2.5 Mg-Metformin Er 1,000 Mg Tablet,Extended ) 2.5-1,000 mg tablet, IR - ER, biphasic 24hr Active {tbl} PO March 01, 2025 12:00am Start: 07-21-2023 take 1 tablet by liu th twice daily JENTADUETO XR 2.5-1,000 mg XR tab Take 1 tablet by mouth two times a day. 07/21/2023 Active Start: 07-21-2023 take 2 tablets by mouth once J ENTADUETO XR 2.5-1,000 mg XR tab Take 2 tablets by mouth every afternoon. 07/21/2023 Active Start: 01-09-2023 End: 12-22-2024 take 2.5-1000 mg by mouth every twenty-four hours linagliptin-metformin (Jentadueto XR) 2.5-1,000 mg tablet, IR - ER, biphasic 24hr Indications: 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 without complication, with long-term current use of insulin Take 2 tablets by mouth once daily. 180 tablet 3 12/23/2024 10:23 AM EDT 12/22/2024 Active Start: 11-04-2022 take 2.5-1000 mg by mouth every twenty-four hours linagliptin-metformin (Jentadueto XR) 2.5-1,000 mg tablet, IR - ER, biphasic 24hr Indications: 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 without complication, with long-term current use of insulin ([facility]) Take 2 tablets by mouth once daily. 180 tablet 3 11/04/2022 Active Start: 02-06-2022 JENTADUETO XR 2.5-1000 MG TB24 Start: 01-07-2022 take 2 tablets by mo uth once daily Jentadueto XR 2.5-1000 MG per 24 hr tablet take 2 tablets by mouth once daily 07/14/2022 Active Start: 11-06-2021 Jentadueto XR 5-1000 MG Oral Tablet Extended Release 24 Hour Quantity: 30 Refills: 0 Ordered: 10-Dec-2021 DO Start : 06-Nov-2021 Complete Start: 08-20-2021 End: 01-07-2022 take 4 tablets by mouth every twenty-four hours Jentadueto XR 2.5-1000 MG Oral Tablet Extended Release 24 Hour Quantity: 90 Refills: 0 Ordered: 20-Aug-2021 DO Start : 20-Aug-2021 End : 07-Jan-2022 Complete Start: 08-20-2021 take 1 tablet by liu th once daily Jentadueto XR 5-1000 MG Oral Tablet Extended Release 24 Hour TAKE 1 TABLET BY MOUTH ONCE DAILY Quantity: 90 Refills: 3 Ordered: 06-Nov-2021 Celia Al DO Start : 20-Aug-2021 Active please wait to fill until patient requests Start: 08-20-2021 take 1 tablet by liu th once daily Jentadueto XR 2.5-1000 MG Oral Tablet Extended Release 24 Hour TAKE 1 TABLET BY MOUTH ONCE DAILY (start after finish supply of Januvia and glipizide) Quantity: 90 Refills: 0 Ordered: 20-Aug-2021 Celia Al DO Start : 20-Aug-2021 Active WEARN; mail to patient; patient needs at end august; contact Luci for questions Comment on above: Take 2 tablets by mo uth every afternoon. losartan potassium 100 mg oral tablet (20 sources) Angiotensin 2 Receptor Luna Start: 11-09-2024 End: 11-11-2024 take 100 mg by mouth once daily 100 mg, Oral, Daily, First dose on Thu11/09/24 at 0900 Start: 08-27-2024 End: 08-29-2024 take 100 mg by mouth once daily 100 mg, Oral, Daily, F irst dose on Thu08/27/24 at 0900 Start: 02-24-2024 End: 04-26-2024 take 1 tablet by mouth once daily losartan (Cozaar) 50 MG tablet Take 1 tablet (50 mg) by mouth daily. 90 tablet 1 02/24/2024 04/26/2024 Discontinued (Reorder) Start: 01-21-2024 End: 01-21-2024 losartan (Cozaar) tablet 50 mg Start: 01-20-2024 End: 01-21-2024 losartan (Cozaar) tablet 25 mg Start: 10-06-2023 End: 10-06-2023 take 100 mg by mouth once daily 100 mg, Oral, Daily, F irst dose on Thu10/06/23 at 0900 Start: 10-31-2020 End: 02-24-2024 take 1 tablet by mouth once losartan (COZAAR) 100 mg t ablet Take 1 tablet by mouth every afternoon. 07/01/2023 Active Comment on above: Take 1 tablet by liu th every afternoon. methylPREDNISolone (2 sources) Corticosteroid Start: 10-23-2022 End: 11-04-2022 methylPREDNISolone (Medrol Dospak) 4 mg tablets Indications: Shoulder impingement syndrome, right Take as directed on package. 21 tablet 0 10/23/2022 11/04/2022 Discontinued (Other) Start: 10-23-2022 End: 10-30-2022 methylPREDNISolone (Medrol D ospak) 4 mg tablets Indications: Shoulder impingement syndrome, right Take as directed on package. 21 tablet 0 10/23/2022 10/30/2022 Active Multiple Vitamins-Minerals (MULTIPLE VITAMINS/WOMENS PO) (20 sources) Multiple Vitamins-Minerals (MULTIPLE VITAMINS/WOMENS PO) Take by mouth daily. Active multivit,calc,mins/iron/ folic (ONE-A-DAY WOMENS FORMULA ORAL) (11 sources) take 1 tablet by mouth once daily multivit,calc,mins/iron /folic (ONE-A-DAY WOMENS FORMULA ORAL) Take 1 tablet by mouth once daily. Active mupirocin 0.02 mg/mg topical ointment (3 sources) RNA Synthetase Inhibitor Antibacterial Start: 2024 Mupirocin 2 % ointment Active TOPICAL THREE TIMES A DAY March 01, 2025 12:00am Start: 01-27-2025 End: 02-06-2025 mupirocin (Bactroban) 2 % oi ntment Indications: Cellulitis of right toe Apply topically 3 times a day for 10 days. apply to affected area 22 g 01/27/2025 02/06/2025 Active Start: 11-25-2024 End: 12-05-2024 mupirocin (Bactroban) 2 % oi ntment Indications: Abrasion Apply topically 3 times a day for 10 days. apply to affected area 22 g 11/25/2024 12/05/2024 Active pantoprazole 40 mg delayed release oral tablet (20 sources) Proton Pump Inhibitor Start: 11-11-2024 End: 02-09-[address] (PROTONIX) 40 mg tablet Take by mouth once daily. 11/11/2024 Active Start: 11-11-2024 End: 02-09-2025 take 1 tablet by mouth twice daily, then take 1 tablet by mouth once daily before breakfast pantoprazole (ProtoNix) 40 MG EC tablet Take 1 tablet (40 mg) by mouth 2 times daily for 30 days, THEN 1 tablet (40 mg) every morning (before breakfast). Do not crush, chew, or split.. 120 tablet 11/11/2024 Active Start: 08-27-2024 End: 08-29-2024 take 40 mg by mouth once daily before breakfast 40 mg, Oral, Daily before breakfast, First dose on Thu08/27/24 at 0600, Substituted for lansoprazole (Prevacid). Do not crush, chew, or split. Start: 01-20-2024 End: 01-22-2024 take 40 mg by mouth once daily in the morning 40 mg, Oral, Every morning, First dose on Thu01/20/24 at 0900, Do not crush, chew, or split. rosuvastatin calcium 10 mg oral tablet (20 sources) HMG-CoA Reductase Inhibitor Start: 12-02-2018 take 1 tablet by mouth once daily rosuvastatin (CRESTOR) 20 MG tablet Indications: Pure hypercholesterolemia Take 1 tablet by mouth daily 90 tablet 1 12/02/2018 Active Start: 03-05-2017 ROSUVASTATIN C ALCIUM 5 MG TABS 2 tablets daily ROSUVASTATIN CALCIUM [id number] Vika Garcia GAUTAM Start: 10-07-2012 End: 08-29-2024 take 1 tablet by mouth once rosuvastatin (CRESTOR) 10 mg tablet Take 1 tablet by mouth every afternoon. 06/17/2023 Active Comment on above: Take 1 tablet by liu every afternoon. sertraline 25 mg oral tablet (20 sources) Serotonin Reuptake Inhibitor Start: 01-21-20 End: 02-24-20 take 1 tablet by mouth once daily sertraline (ZOLOFT) 25 mg tablet Take 25 mg by mouth once daily. 01/23/2024 12/06/2025 Active 60 actuat tiotropium 0.0025 mg/actuat inhalation spray (20 sources) Anticholinergic Start: 03-01-20 take 2.5 ug by inhalation once daily Tiotropium Charlotte (Tiotropium [place] 2.5 Mcg/Actuation Mist For Inhalation) 2.5 mcg/actuation mist Active 2 NMA INHALATION DAILY March 01, 2025 12:00am Start: 11-10-2024 End: 11-11-2024 2 puff, Inhalation, Daily, F irst dose on Tonia 11/10/24 at 1530, Instruct to hold breath for 10 seconds after each inhalation. Before first use, prime inhaler by actuating until aerosal cloud is seen, then actuating 3 more times. Start: 08-27-2024 End: 08-29-2024 2 puff, Inhalation, Daily, F irst dose on 08/27/24 at 0900, Instruct to hold breath for 10 seconds after each inhalation. Before first use, prime inhaler by actuating until aerosal cloud is seen, then actuating 3 more times. Start: 02-02-2024 End: 12-22-2024 take 2 puff(s) by inhalation once daily tiotropium (Spiriva Respimat) 2.5 mcg/actuation inhaler Indications: SOB (shortness of breath) Inhale 2 puffs once daily. 12 g 3 12/23/2024 10:23 AM EDT 12/22/2024 Active Start: 11-01-2023 End: 02-02-2024 take 2 puff(s) by inhalation once daily Spiriva Respimat 2.5 mcg/actuation inhaler Inhale 2 puffs once daily. 11/01/2023 02/02/2024 Discontinued (Reorder) Start: 10-31-2023 SPIRIVA RESPIM AT 2.5 mcg/actuation inhaler Inhale 2 puffs as instructed. 10/31/2023 Active Start: 10-31-2023 End: 10-30-2024 take 2 puff(s) by inhalation once daily tiotropium (Spiriva Respimat) 2.5 MCG/ACT inhaler Indications: Pulmonary emphysema, unspecified emphysema type (HCC) Inhale 2 puffs daily. 1 each 11 10/31/2023 Active Start: 11-27-2017 SPIRIVA HANDIH ALER CAPS 1 inhalantion vieira as needed TIOTROPIUM BROMIDE MONOHYDRATE CAPS [id number] Vika Garcia [employer] Start: 10-13-2013 End: 09-01-2022 take 1 capsule by inhalation once daily Spiriva HandiHaler 18 MCG Inhalation Capsule INHALE CONTENTS OF 1 CAPSULE ONCE DAILY. Quantity: 90 Refills: 3 Ordered: 27-Oct-2018 Celia Al DO Start : 13-Oct-2013 Active Completed/Discontinued Medications Medication Drug Class(es) Dates Sig (Normalized) Sig (Original) Acetaminophen (13 sources) Start: 11-08-2024 End: 11-11-2024 take 1 tablet by mouth every six hours as needed for pain and fever acetaminophen (Tylenol) tablet 650 mg Start: 08-26-2024 End: 08-29-2024 take 1 tablet by mouth every six hours as needed for pain and fever acetaminophen (Tylenol) tablet 650 mg Start: 05-05-2024 End: 05-06-2024 take 1 tablet by mouth every four hours as needed for pain 650 mg, Oral, Every 4 hours PRN, mild pain (1-3), Fever > 100.5 F (38 C), Starting on Tonia 05/05/24 at 1517, Recovery [facility] On Unit, Maximum dose of acetaminophen is 4000 mg from all sources in 24 hours. Start: 01-20-2024 End: 01-22-2024 take 1 tablet by mouth every four hours as needed for pain acetaminophen (Tylenol) tablet 650 mg Start: 01-20-2024 End: 01-20-2024 acetaminophen (Ofirmev) IVPB 1,000 mg Start: 10-05-2023 End: 10-06-2023 take 1 tablet by mouth every six hours as needed for pain and fever acetaminophen (Tylenol) tablet 650 mg take 2 tablets by mo [facility] every eight hours as needed acetaminophen (TYLENOL EXTRA STRENGTH) 500 mg tablet Take 1,000 mg by mouth every 8 hours as needed for pain. Active acetaminophen 325 mg / oxyCODONE hydrochloride 5 mg oral tablet (2 sources) Opioid Agonist Start: 10-05-2023 End: 10-06-2023 take 1 tablet by mouth every six hours as needed for pain and pain oxyCODONE-acetaminophen (Percocet) 5-325 MG per tablet 1 tablet albuterol 0.833 mg/ml / ipratropium bromide 0.167 mg/ml inhalation solution (4 sources) Anticholiner gic, beta2-Adrene rgic Agonist Start: 08-27-2024 End: 08-29-2024 3 mL, Nebulization, 3 times daily, First dose on 08/27/24 at 0840 Start: 10-05-2023 End: 10-06-2023 ipratropium-albuterol (Duo-N eb) 0.5-2.5 mg/3 mL nebulizer solution 3 mL amiodarone hydrochloride 200 mg oral tablet (20 sources) Antiarrhythmic Start: 02-12-2024 End: 06-01-2024 take 1 tablet by mouth once daily amiodarone (Pacerone) 200 MG tablet Indications: PAF (paroxysmal atrial fibrillation) (HCC) Take 1 tablet (200 mg) by mouth daily. Do not start before February 12, 2024. 90 tablet 1 02/12/2024 06/01/2024 Discontinued (Therapy completed) Start: 02-12-2024 take 1 tablet by liu once daily amiodarone (Pacerone) 200 MG tablet Indications: PAF (paroxysmal atrial fibrillation) (HCC) Take 1 tablet (200 mg) by mouth daily. Do not start before February 12, 2024. 90 tablet 1 02/12/2024 Active Start: 02-12-2024 take 1 tablet by liu th once daily amiodarone (Pacerone) 200 MG tablet Indications: PAF (paroxysmal atrial fibrillation) (HCC) Take 1 tablet (200 mg) by mouth daily. Do not start before February 12, 2024. 90 tablet 1 02/12/2024 Active Start: 02-12-2024 take 1 tablet by liu th once daily amiodarone (Pacerone) 200 MG tablet Indications: PAF (paroxysmal atrial fibrillation) (HCC) Take 1 tablet (200 mg) by mouth daily. Do not start before February 12, 2024. 90 tablet 1 02/12/2024 Active Start: 02-12-2024 take 1 tablet by liu th once daily amiodarone (Pacerone) 200 MG tablet Indications: PAF (paroxysmal atrial fibrillation) (HCC) Take 1 tablet (200 mg) by mouth daily. Do not start before February 12, 2024. 90 tablet 1 02/12/2024 Active Start: 02-04-2024 End: 02-15-2024 take 1 tablet by mouth twice daily amiodarone (Pacerone) 400 MG tablet Indications: PAF (paroxysmal atrial fibrillation) (HCC) Take 1 tablet (400 mg) by mouth 2 times daily for 7 days. 14 tablet 02/04/2024 02/15/2024 Discontinued (Therapy completed) Start: 02-01-2024 take 1 tablet by liu th once daily amiodarone (Pacerone) 200 MG tablet Indications: PAF (paroxysmal atrial fibrillation) (HCC) Take 1 tablet (200 mg) by mouth daily. 90 tablet 1 02/01/2024 Active Start: 01-22-2024 End: 02-01-2025 take 2 tablets by mouth twice daily amiodarone (Pacerone) 200 MG tablet Indications: PAF (paroxysmal atrial fibrillation) (HCC) Take 2 tablets (400 mg) by mouth 2 times daily for 7 days. 28 tablet 02/02/2024 02/09/2024 Active Start: 01-21-2024 End: 01-22-2024 amiodarone (Pacerone) tablet 400 mg aspirin 81 mg delayed release oral tablet (20 sources) Nonsteroidal Anti-inflammatory Drug Start: 10-13-2013 End: 02-08-2025 Aspir-Low 81 MG TBEC TAKE 1 TABLET DAILY. Quantity: 0 Refills: 0 Ordered: 13-Oct-2013 DO Start : 13-Oct-2013 Active End: 02-01-2024 aspirin 81 MG chewable table t daily. 02/01/2024 Discontinued take 1 tablet by liu th once daily aspirin 81 MG tablet Take 81 mg by mouth daily 0 Active Comment on above: Take 81 mg by mouth. 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 600 mL 11/11/2024 12/12/2024 Discontinued (Med list cleanup) Start: 10-13-2023 End: 02-10-2024 take 10 mL by mouth once daily atovaquone (Mepron) 750 MG/5ML suspension Indications: Organizing pneumonia (CMS/HCC) (HCC) Take 10 mL (1,500 mg) by mouth daily. 300 mL 3 10/13/2023 02/10/2024 barium sulfate (Varibar [place], Varibar Honey) 40 % suspension 5 mL (2 sources) Start: 07-20-2024 End: 07-20-2024 take 5 mL by mouth once 5 mL, Oral, Once, On Thu07/20/24 at 1300, For 1 dose barium sulfate (Varibar Pudding) 40 % oral paste 5 mL (2 sources) Start: 07-20-2024 End: 07-20-2024 5 mL, Oral, Once, On Thu07/20/24 at 1300, For 1 dose, Administer with oral syringe or spoon. Max cumulative dose of 30 mL. Discard any unused product 21 days after tube opened. barium sulfate (Varibar THIN Liquid) 40 % suspension 5 mL (2 sources) Start: 07-20-2024 End: 07-20-2024 take 5 mL by mouth once 5 mL, Oral, Once, On Thu07/20/24 at 1300, For 1 dose cephalexin 500 mg oral capsule (8 sources) Cephalosporin Antibacterial Start: 01-27-2025 End: 02-07-2025 take 1 capsule by mouth twice daily cephalexin (Keflex) 500 mg capsule Indications: Cellulitis of right toe Take 1 capsule (500 mg) by mouth 2 times a day for 10 days. 20 capsule 01/27/2025 02/07/2025 Discontinued (Therapy completed) Start: 10-21-2024 End: 10-21-2024 take 500 mg by mouth once 500 mg, Oral, Once, On Thu at 1950, For 1 dose, Suspected Indication (Select all that apply): Urinary Tract Infection Start: 10-21-2024 End: 10-28-2024 take 1 capsule by mouth twice daily cephalexin (Keflex) 500 MG capsule Take 1 capsule (500 mg) by mouth 2 times daily for 5 days. 10 capsule 10/21/2024 10/28/2024 Discontinued (Therapy completed) cholecalciferol 0.025 mg oral tablet (20 sources) Vitamin D Start: 08-27-2024 End: 08-29-2024 take 4000 [IU] by mouth once daily 4,000 Units, Oral, Daily, First dose on Thu08/27/24 at 0900 Start: 03-05-2017 VITAMIN D3 200 0 UNIT TABS 2 tablets daily CHOLECALCIFEROL [id number] Vika Garcia GAUTAM Start: 10-22-2015 take 2 tablets by mo uth once daily Vitamin D3 50 MCG (2000 UT) Oral Tablet TAKE 2 TABLET Daily Quantity: 180 Refills: 0 Ordered: 23-Oct-2017 Celia Al DO Start : 22-Oct-2015 Active cholecalciferol (VITAMIN D3) 50 mcg (2,000 unit) tablet Take 4,000 Units by mouth as needed. Active take 1 tablet by liu th once daily cholecalciferol (Vitamin D-3) 50 MCG (2000 UT) tablet Take 4,000 Units by mouth daily. Active take 2 tablets by mo uth once daily cholecalciferol (Vitamin D-3) 50 MCG (2000 UT) tablet Take 2 tablets (4,000 Units) by mouth once daily. Active Cholecalciferol (D3 ADULT PO) Take 2,000 Units by mouth 0 Active Cholecalciferol (D3 ADULT PO) Take 2,000 Units by mouth 0 Active Comment on above: Take 4,000 Units by mouth. cholecalciferol 9.52 unt/ml / glucose 357 mg/ml oral gel (6 sources) Vitamin D Start: 08-26-2024 End: 08-29-2024 Start: 01-21-2024 End: 01-22-2024 glucose oral gel 15 g Start: 10-05-2023 End: 10-06-2023 glucose oral gel 15 g citalopram 20 mg oral tablet (20 sources) Serotonin Reuptake Inhibitor Start: 01-09-2017 End: 02-08-2025 take 1 tablet by mouth once citalopram (CELEXA) 20 mg tablet Take 1 tablet by mouth every afternoon. 06/14/2023 02/08/2025 Discontinued Comment on above: Take 1 tablet by liu th every afternoon. clindamycin 10 mg/ml topical lotion (20 sources) Lincosamide Antibacterial Start: 08-22-2020 Clindamycin Phosphate 1 % External Lotion APPLY SPARINGLY AND MASSAGE IN TWICE DAILY. Quantity: 0 Refills: 0 Ordered: 24-Aug-2020 DO Start : 22-Aug-2020 Active Start: 08-22-2020 Clindamycin Ph osphate 1 % External Lotion APPLY SPARINGLY AND MASSAGE IN TWICE DAILY. Refills: 0 Start : 6-Fantasma-2021 Active 60 ML Bottle Clindamycin Phos phate (CLEOCIN T) 1 % lotion as needed. Active Clindamycin Phos phate (CLEOCIN T) 1 % lotion twice a day. Apply sparingly and massage in Active Comment on above: twice a day. Apply s paringly and massage in colchicine 0.6 mg oral tablet (20 sources) Start: 11-05-2020 Colchicine 0.6 MG Oral Tablet TAKE 2 TABLETS BY MOUTH A SINGLE DOSE, THEN 1 TABLET BY MOUTH 1 HOUR LATER, THEN TAKE 1 TABLET BY MOUTH EVERY DAY FOR 7 DAYS Quantity: 10 Refills: 0 Ordered: 29-Mar-2021 Celia Al DO Start : 05-Nov-2020 Active End: 08-26-2024 colchicine 0.6 mg tablet 1 t ablet Orally 08/26/2024 Discontinued (Med List Cleanup) 1 ml diphenhydrAMINE hydrochloride 50 mg/ml cartridge (2 sources) Histamine-1 Receptor Antagonist Start: 01-19-2024 End: 01-19-2024 diphenhydrAMINE (BENADryl) injection 50 mg doxycycline hyclate 100 mg oral capsule (20 sources) Tetracycline-class Drug Start: 02-07-2025 End: 02-20-2025 doxycycline (Vibramycin) 100 mg capsule Indications: Cellulitis of right toe Take 1 capsule (100 mg) by mouth 2 times a day for 10 days. Take with at least 8 ounces (large glass) of water, do not lie down for 30 minutes after 20 capsule 02/07/2025 02/20/2025 Discontinued (Therapy completed) Start: 11-18-2024 End: 11-28-2024 doxycycline (Vibramycin) 100 mg capsule Indications: Lymphocytosis Take 1 capsule (100 mg) by mouth 2 times a day for 10 days. Take with at least 8 ounces (large glass) of water, do not lie down for 30 minutes after 20 capsule 11/18/2024 11/28/2024 Active Start: 10-03-2024 End: 10-13-2024 doxycycline (Vibramycin) 100 mg capsule Indications: Acute bronchitis, unspecified organism Take 1 capsule (100 mg) by mouth 2 times a day for 10 days. Take with at least 8 ounces (large glass) of water, do not lie down for 30 minutes after 20 capsule 10/03/2024 10/13/2024 Active Start: 03-20-2021 End: 03-27-2021 take 1 capsule by mouth twice daily at mealtime Doxycycline Monohydrate 100 MG Oral Capsule TAKE 1 CAPSULE Twice daily take with food and 8 oz of water Quantity: 14 Refills: 0 Ordered: 20-Mar-2021 Usama King MD Start : 20-Mar-2021 End : 27-Mar-2021 Complete Start: 09-05-2019 take 1 capsule by mo [facility] once daily Doxycycline Hyclate 100 MG Oral Capsule TAKE 1 CAPSULE EVERY 12 HOURS DAILY. Quantity: 20 Refills: 0 Ordered: 14-Jul-2022 Celia Al DO Start : 05-Sep-2019 Active take 1 tablet by [facility] twice daily doxycycline (VIBRA-TABS) 100 mg tablet Take 1 tablet twice a day by oral route. Active 1 ml EPINEPHrine 1 mg/ml injection (2 sources) alpha-Adrenergic Agonist, beta-Adrenergic Agonist, Catecholamine Start: 01-19-2024 End: 01-19-2024 EPINEPHrine (Adrenalin) injection 0.3 mg Start: 01-19-2024 End: 01-19-2024 EPINEPHrine (Adrenalin) inje ction 0.3 mg F18 FDG radio-isotope injection 12 millicurie (2 sources) Start: 09-17-2023 End: 09-17-2023 F18 FDG radio-isotope injection 12 millicurie 2 ml fentaNYL 0.05 mg/ml injection (2 sources) Opioid Agonist Start: 10-05-2023 End: 10-05-2023 fentaNYL (Sublimaze) injection Finerenone tablet 1 tablet (4 sources) Start: 11-09-2024 End: 11-11-2024 Start: 08-27-2024 End: 08-29-2024 take 1 tablet by mouth once daily 1 tablet, Oral, Daily, First dose on 08/27/24 at 0900, Non-formulary medication, please have patient provide, pharmacy must verify product prior to inpatient use fluocinonide 0.5 mg/ml topical cream (20 sources) Corticosteroid Start: 04-01-2022 Fluocinonide 0 .05 % External Cream Quantity: 60 Refills: 0 Ordered: 01-Apr-2022 DO Start : 01-Apr-2022 Active Start: 08-22-2020 Fluocinonide 0 .05 % External Solution apply to affected area(s) daily Refills: 3 Start : 22-Aug-2020 Active Start: 08-22-2020 Fluocinonide 0 .05 % External Solution apply to affected area(s) daily Quantity: 0 Refills: 3 Ordered: 22-Aug-2020 DO Start : 22-Aug-2020 Active fluocinonide (LI DEX) 0.05 % external solution as needed. Active Comment on above: 1 (one) time each da y. Apply to affected areas fluticasone propionate 0.05 mg/actuat metered dose nasal spray (20 sources) Corticosteroid Start: 4 End: take 1 spray(s) nasal route once daily fluticasone (Flonase) 50 mcg/actuation nasal spray Indications: Acute maxillary sinusitis, recurrence not specified Administer 1 spray into each nostril once daily. Shake gently. Before first use, prime pump. After use, clean tip and replace cap. 16 g 1 10/01/2023 08/26/2024 Discontinued (Med List Cleanup) fluticasone (Cut ivate) 0.05 % cream Apply topically Daily as needed (itching). Active End: 10-28-2024 take 1 spray(s) nasal route once daily fluticasone (Flonase) 50 MCG/ACT nasal spray Administer 1 spray into each nostril daily. Shake gently. Before first use, prime pump. After use, clean tip and replace cap. 10/28/2024 Discontinued (Therapy completed) 60 actuat formoterol fumarate 0.005 mg/actuat / mometasone furoate 0.2 mg/actuat metered dose inhaler (2 sources) Corticosteroid, beta2-Adrenergic Agonist Start: 08-27-2024 End: 08-29-2024 take 2 puff(s) by mouth twice daily 2 puff, Inhalation, 2 times daily, First dose on 08/27/24 at 2000, Rinse mouth with water after use to reduce aftertaste and incidence of candidiasis. Do not swallow. gabapentin 100 mg oral capsule (9 sources) Anti-epileptic Agent Start: 02-14-2025 End: 03-16-2025 take 1 capsule by mouth once daily at bedtime gabapentin (NEURONTIN) 100 mg capsule Indications: Spinal stenosis of cervical region , Spinal stenosis of lumbar region with neurogenic claudication Take 1 capsule by mouth daily at bedtime for 30 days. 30 capsule 02/14/2025 03/10/2025 Discontinued glimepiride 1 mg oral tablet (13 sources) Sulfonylurea Start: 03-05-2017 GLIMEPIRIDE 1 MG TABS takes 1 tablet once a day GLIMEPIRIDE [id number] Katie Norton [employer] Start: 10-21-2013 take 1 tablet by liu twice daily Glimepiride 1 MG Oral Tablet take 1 tablet by mouth twice a day Quantity: 180 Refills: 3 Celia Al DO Start : 21-Oct-2013 Active glucagon (rdna) 1 mg injecti on (6 sources) Antihypoglycemic Agent Start: 08-26-2024 End: 08-29-2024 Start: 01-21-2024 End: 01-22-2024 glucagon (human recombinant) injection 1 mg Start: 10-05-2023 End: 10-06-2023 glucagon (human recombinant) injection 1 mg 150 ml glucose 50 mg/ml inje ction (12 sources) Start: 08-26-2024 End: 08-29-2024 Start: 08-26-2024 End: 08-29-2024 Start: 01-21-2024 End: 01-22-2024 dextrose 50 % solution 12.5 g Start: 01-21-2024 End: 01-22-2024 dextrose 5 % infusion Start: 10-05-2023 End: 10-06-2023 dextrose 50 % solution 12.5 g Start: 10-05-2023 End: 10-06-2023 dextrose 5 % infusion 12 hr guaiFENesin 600 mg ext ended release oral tablet (20 sources) Start: 08-26-2024 End: 09-16-2024 End: 01-27-2025 take 2 tablets by mouth twice daily guaiFENesin (Mucinex) 600 mg 12 hr tablet Take 2 tablets (1,200 mg) by mouth 2 times a day. Do not crush, chew, or split. 01/27/2025 Discontinued (Therapy completed) 1 ml hydrALAZINE hydrochloride 20 mg/ml injection (4 sources) Arteriolar Vasodilator Start: 08-26-2024 End: 08-29-2024 take 10 mg intravenously every four hours as needed for hypertension 10 mg, IntraVENous, Every 4 hours PRN, high blood pressure, SBP>160, Starting on Thu08/26/24 at 2103 Start: 10-05-2023 End: 10-06-2023 take 5 mg intravenously every four hours as needed for hypertension hydrALAZINE (Apresoline) injection 5 mg hydroCHLOROthiazide 25 mg oral tablet (20 sources) Thiazide Diuretic Start: 10-31-2020 End: 10-23-2022 take 1 tablet by mouth once daily hydroCHLOROthiazide 25 MG Oral Tablet Take 1 tablet daily Quantity: 90 Refills: 3 Ordered: 01-Nov-2021 Celia Al DO Start : 31-Oct-2020 Active hydroCHLOROthiazide 25 mg / losartan potassium 100 mg oral tablet (20 sources) Thiazide Diuretic, Angiotensin 2 Receptor Luna Start: 12-02-2012 take 1 tablet by mouth once daily Losartan Potassium-HCTZ 100-25 MG Oral Tablet TAKE 1 TABLET BY MOUTH DAILY Quantity: 90 Refills: 3 Ordered: 31-Oct-2020 Celia Al DO Start : 02-Dec-2012 Active ibuprofen 600 mg oral tablet (4 sources) Nonsteroidal Anti-inflammator y Drug End: 09-23-2022 ibuprofen 600 MG tablet every 8 hours. 0 09/23/2022 Discontinued Insulin Lispro (Humalog) injection 0-6 Units (6 sources) Start: 08-27-2024 End: 08-29-2024 Insulin Lispro (Humalog) injection 0-6 Units Start: 01-21-2024 End: 01-22-2024 Insulin Lispro (Humalog) inj ection 0-6 Units Start: 10-05-2023 End: 10-06-2023 Insulin Lispro (Humalog) inj ection 0-6 Units iopamidol (Isovue-370) 76 % injection 75 mL (10 sources) Start: 08-26-2024 End: 08-26-2024 take 75 mL intravenously once as needed 75 mL, IntraVENous, IMG once PRN, contrast, Starting on Thu08/26/24 at 1724, For 1 dose Start: 01-21-2024 End: 01-21-2024 iopamidol (Isovue-370) 76 % injection 75 mL Start: 01-19-2024 End: 01-19-2024 iopamidol (Isovue-370) 76 % injection 75 mL Start: 01-19-2024 End: 01-19-2024 iopamidol (Isovue-370) 76 % injection 75 mL Start: 12-15-2022 End: 12-15-2022 iopamidol (Isovue-370) 76 % injection 75 mL iron sucrose (Venofer) 200 mg in sodium chloride 0.9 % 100 mL IVPB (2 sources) Start: 11-11-2024 End: 11-11-2024 200 mg, IntraVENous, at 300 mL/hr, Administer over 20 Minutes, Once, On Thu11/11/24 at 1300, For 1 dose, Observe for signs and symptoms of hypersensitivity and/or anaphylactic-type reactions per institutional standard during and following administration. Kerendia 10 mg tablet tablet (8 sources) Start: 04-29-2023 End: 02-02-2024 take 1 tablet by mouth once daily Kerendia 10 mg tablet tablet Take 1 tablet (10 mg) by mouth once daily. 04/29/2023 02/02/2024 Discontinued (Reorder) Start: 04-29-2023 take 1 tablet by liu th once daily Kerendia 10 mg tablet tablet Take 1 tablet (10 mg) by mouth once daily. 04/29/2023 Active Start: 04-29-2023 take 1 tablet by liu th once daily Kerendia 10 mg tablet tablet Take 1 tablet (10 mg) by mouth once daily. 0 04/29/2023 Active labetalol hydrochloride 5 mg/ml injectable solution (2 sources) beta-Adrenergic Luna Start: 08-26-2024 End: 08-26-2024 20 mg, IntraVENous, Once, On Thu08/26/24 at 1900, For 1 dose lansoprazole 30 mg delayed release oral capsule (20 sources) Proton Pump Inhibitor Start: 03-30-2014 End: 02-08-2025 take 1 capsule by mouth once daily lansoprazole (PREVACID) 30 mg capsule 1 capsule before a meal Orally Once a day 09/17/2015 02/08/2025 Discontinued Comment on above: 1 capsule before a m eal Orally Once a day 10 ml lidocaine hydrochloride 10 mg/ml injection (4 sources) Antiarrhythmic, Amide Local Anesthetic Start: 08-29-2024 End: 08-29-2024 As needed, Starting on Thu08/29/24 at 1415, Intraprocedure Start: 10-05-2023 End: 10-05-2023 lidocaine PF (Xylocaine) 1 % injection linagliptin 5 mg oral tablet (2 sources) Dipeptidyl Peptidase 4 Inhibitor Start: 11-09-2024 End: 11-11-2024 5 mg, Oral, Daily with breakfast, First dose on Thu11/09/24 at 0800, Substituted for Jentadueto XR 50 ml magnesium sulfate 40 mg/ml injection (2 sources) Start: 01-20-2024 End: 01-20-2024 magnesium sulfate IVPB premix 2,000 mg melatonin 5 mg oral tablet (2 sources) Start: 11-09-2024 End: 11-11-2024 take 10 mg by mouth once daily as needed for sleep 10 mg, Oral, Nightly PRN, sleep, Starting on Thu11/09/24 at 2242 methylPREDNISolone 4 MG Oral Tablet Therapy Pack (5 sources) Start: 11-29-2021 End: 04-05-2022 methylPREDNISolone 4 MG Oral Tablet Therapy Pack Take as Directed per Packet Instruction Quantity: 1 Refills: 0 Ordered: 29-Nov-2021 Ana Rosa Duenas MD Start : 29-Nov-2021 End : 05-Apr-2022 Complete Start: 11-29-2021 methylPREDNISo lone 4 MG Oral Tablet Therapy Pack Take as Directed per Packet Instruction Quantity: 1 Refills: 0 Ordered: 29-Nov-2021 Ana Rosa Duenas MD Start : 29-Nov-2021 Active metoprolol tartrate 25 mg oral tablet (20 sources) beta-Adrenergic Luna Start: 01-19-2024 End: 01-19-2024 metoprolol tartrate (Lopressor) injection 5 mg Start: 02-07-2022 End: 01-22-2024 take 1 tablet by mouth once daily in the morning, then take 1 tablet by mouth once daily at bedtime metoprolol tartrate (Lopressor) 25 mg tablet Indications: Primary hypertension TAKE 1 TABLET BY MOUTH DAILY IN THE MORNING AND 1 TABLET DAILY BEFORE BEDTIME. 180 tablet 3 01/12/2024 Active Start: 08-15-2013 End: 10-06-2023 take 1 tablet by mouth twice daily at mealtime metoprolol tartrate, short acting, (LOPRESSOR) 25 mg tablet 1 tablet with food Orally Twice a day 02/07/2022 Active Comment on above: 1 tablet with food O rally Twice a day 2 ml midazolam 1 mg/ml injection (2 sources) Benzodiazepine Start: End: midazolam (Versed) injection MULTIPLE VITAMINS-MINERALS (1 source) Start: take 4 tablets by mouth once daily EYE SUPPORT ORAL TABLET 4 tablets daily MULTIPLE VITAMINS-MINERALS [id number] Vika Garcia [employer] 1 ml naloxone hydrochloride 0.4 mg/ml injection (2 sources) Opioid Antagonist Start: End: naloxone (Narcan) injection 0.4 mg 100 ml sodium nitroprusside 0.5 mg/ml injection (4 sources) Start: End: nitroprusside in sodium chloride 0.9 % (500 mcg/mL) (Nipride) infusion ondansetron ODT (Zofran-ODT) disintegrating tablet 4 mg (4 sources) Start: End: take 1 tablet by mouth every eight hours as needed for nausea and vomiting ondansetron ODT (Zofran-ODT) disintegrating tablet 4 mg Start: 10-05-2023 End: 10-06-2023 take 1 tablet by mouth every eight hours as needed for nausea and vomiting ondansetron ODT (Zofran-ODT) disintegrating tablet 4 mg pantoprazole (ProtoNix) 40 mg in sodium chloride (PF) 0.9 % 10 mL injection (2 sources) Start: 11-08-2024 End: 11-11-2024 40 mg, IntraVENous, Administer over 2 Minutes, Daily before breakfast, First dose on Thu11/08/24 at 1750, Reconstitute with 10 ml NS. Vial expires 2 hrs after reconstitution. Paxlovid (300/100) 20 x 150 MG & 10 x 100MG Oral Tablet Therapy Pack (2 sources) Start: 04-05-2022 Paxlovid (300/100) 20 x 150 MG & 10 x 100MG Oral Tablet Therapy Pack TAKE DIRECTED ON PACKAGING (DISCONTINUE STATIN AND RED YEAST RICE WHILE ON THIS MEDICATION) Quantity: 30 Refills: 0 Ordered: 05-Apr-2022 Ryan Gerard DO Start : 05-Apr-2022 Active perflutren lipid microspheres (DEFINITY) injection 1.65 mg (1 source) Start: 04-27-2020 End: 04-27-2020 perflutren lipid microspheres (DEFINITY) injection 1.65 mg polyethylene glycol 3350 [id number] mg powder for oral solution (6 sources) Osmotic Laxative Start: 11-08-2024 End: 11-11-2024 take 17 g by mouth every twenty-four hours as needed for constipation 17 g, Oral, Daily PRN, constipation, Starting on Thu11/08/24 at 1742, 1st line for treatment of constipation - give scheduled if no bowel movement in past 24 hours. Start: 08-26-2024 End: 08-29-2024 take 17 g by mouth every twenty-four hours as needed for constipation Start: 10-05-2023 End: 10-06-2023 take 17 g by mouth every twenty-four hours as needed for constipation polyethylene glycol (PEG) 3350 (Miralax) packet 17 g predniSONE 20 mg oral tablet (20 sources) Start: 11-11-2024 End: 11-22-2024 take 1 tablet by mouth once daily predniSONE (Deltasone) 20 MG tablet Take 1 tablet (20 mg) by mouth daily for 10 days. 10 tablet 11/12/2024 11/22/2024 Start: 11-09-2024 End: 11-10-2024 take 15 mg by mouth once daily 15 mg, Oral, Daily, Fir st dose on Thu11/09/24 at 1330 Start: 10-28-2024 End: 11-27-2024 predniSONE (Deltasone) 5 MG tablet Indications: Organizing pneumonia (CMS/HCC) (HCC) Take with 10mg prednisone for 15mg daily 28 tablet 10/28/2024 11/11/2024 Discontinued (Stop taking at discharge) Start: 08-27-2024 End: 08-29-2024 take 60 mg by mouth once daily 60 mg, Oral, Daily, Fir st dose on 08/27/24 at 0900 Start: 08-19-2024 End: 03-03-2025 take 3 tablets by mouth once daily, then take 3 tablets by mouth once daily, then take 3 tablets by mouth once daily, then take 2.5 tablets by mouth once daily, then take 2 tablets by mouth once daily predniSONE (Deltasone) 20 mg tablet Take 3 tablets (60 mg) by mouth once daily. Take 3 tablets (60 mg) by mouth daily. Take 3 tablets (60 mg) daily x 14 days, then 2.5 tablets (50 mg) daily x 14 days, then 2 tablets (40 mg) daily until follow-up 08/19/2024 10/18/2024 Active Start: 01-19-2024 End: 06-01-2024 predniSONE (Deltasone) table t 10 mg Start: 12-04-2023 End: 02-02-2024 take 2 tablets by mouth once daily, then take 2 tablets by mouth once daily, then take 1 tablet by mouth once daily predniSONE (Deltasone) 10 MG tablet Indications: Organizing pneumonia (CMS/HCC) (HCC) Take 2 tablets (20 mg) by mouth daily. Take 2 tablets (20mg) daily x 4 weeks, then 1 tablet (10mg) daily x 4 weeks 60 tablet 12/04/2023 02/02/2024 Start: 10-13-2023 End: 12-12-2023 take 6 tablets by mouth once daily, then take 6 tablets by mouth once daily, then take 5 tablets by mouth once daily, then take 4 tablets by mouth once daily, then take 3 tablets by mouth once daily, then take 2 tablets by mouth once daily predniSONE (Deltasone) 10 MG tablet Indications: Organizing pneumonia (CMS/HCC) (HCC) Take 6 tablets (60 mg) by mouth daily. Take 6 tablets (60mg) daily x 2 weeks, then decrease to 5 tablets (50mg) daily x 2 weeks, then 4 tablets (40mg) daily x 2 weeks, then 3 tablets (30mg) daily x 2 weeks, then 2 tablets (20mg) daily 180 tablet 1 10/13/2023 12/04/2023 Discontinued (Reorder) Start: 06-12-2023 predniSONE (De ltasone) 5 mg tablet Indications: Sciatica of right side 10 then 9 then 8 then 7 etc. until gone 55 tablet 06/12/2023 Active 20 ml propofol 10 mg/ml injection (2 sources) General Anesthetic Start: 01-20-2024 End: 01-20-2024 Propofol (Diprivan) 200 MG/20ML injection - Pyxis ADS Override Pull regadenoson (Lexiscan) injection 0.4 mg (2 sources) Start: 01-16-2025 End: 01-16-2025 take 0.4 mg intravenously once as needed 0.4 mg, IntraVENous, IMG once PRN, Stress test, Starting on Thu01/16/25 at 1135, For 1 dose, CV Procedural Medications SITagliptin 100 mg oral tablet (18 sources) Dipeptidyl Peptidase 4 Inhibitor Start: 10-18-2012 take 1 tablet by mouth once daily Januvia 100 MG Oral Tablet TAKE 1 TABLET BY MOUTH ONCE A DAY Quantity: 90 Refills: 3 Ordered: 29-Mar-2021 Celia Al DO Start : 18-Oct-2012 Active Start: 02-10-2012 JANUVIA 50 MG TABS takes 1 tablet once a day SITAGLIPTIN PHOSPHATE [id number] Katie Norton [employer] take 2 tablets [address] [facility] once daily sitaGLIPtin (JANUVIA) 50 MG tablet Take 100 mg by mouth daily 0 Active 50 ml sodium chloride 9 mg/m l injection (12 sources) Start: 01-17-2025 End: 01-17-2025 250 mL/hr, IntraVENous, Administer over 10 Minutes, As needed, For use in priming line prior to transfusion (prime via gravity) and flush line post transfusion, Starting on Thu01/17/25 at 1325, For 1 dose, For use in priming line prior to transfusion (prime via gravity) and flush line post transfusion ONLY. Discontinue once line has been cleared of remaining blood product. Start: 01-16-2025 End: 01-16-2025 take 10 mL intravenously once as needed 10 mL, IntraVENous, IMG once PRN, line care, Starting on Thu01/16/25 at 1139, For 1 dose Start: 01-16-2025 End: 01-16-2025 take 10 mL intravenously once as needed 10 mL, IntraVENous, IMG once PRN, line care, Starting on Thu01/16/25 at 1139, For 1 dose Start: 01-16-2025 End: 01-16-2025 take 10 mL intravenously once as needed 10 mL, IntraVENous, IMG once PRN, line care, Starting on Thu01/16/25 at 1139, For 1 dose Start: 10-21-2024 End: 10-21-2024 500 mL, IntraVENous, at 500 mL/hr, Administer over 1 Hours, Once, On Thu10/21/24 at 1715, For 1 dose Start: 01-19-2024 End: 01-19-2024 sodium chloride 0.9 % bolus 500 mL Start: 10-05-2023 End: 10-05-2023 sodium chloride 0.9 % infusi on spironolactone 25 mg oral tablet (2 sources) Aldosterone Antagonist Start: 01-21-2024 End: 01-22-2024 spironolactone (Aldactone) tablet 25 mg technetium Tc-99m medronate (Tc-MDP) radio-isotope injection 22.1 millicurie (2 sources) Start: 12-15-2022 End: 12-15-2022 technetium Tc-99m medronate (Tc-MDP) radio-isotope injection 22.1 millicurie technetium Tc-99m sestamibi (Cardiolite) radio-isotope injection 22 millicurie (2 sources) Start: 01-16-2025 End: 01-16-2025 22 millicurie, IntraVENous, Once, On Thu01/16/25 at 1200, For 1 dose technetium Tc-99m sestamibi (Cardiolite) radio-isotope injection 7.2 millicurie (2 sources) Start: 01-16-2025 End: 01-16-2025 7.2 millicurie, IntraVENous, Once, On Thu01/16/25 at 1145, For 1 dose vitamin b12 1 mg/ml injectable solution (20 sources) Vitamin B12 Start: 11-18-2024 End: 11-18-2024 cyanocobalamin (Vitamin B-12) injection 1,000 mcg Start: 11-18-2024 End: 11-18-2024 inject 1000 ug by intramuscular injection once 1,000 mcg, intramuscular, Once, On Thu11/18/24 at 1245, For 1 dose Start: 09-09-2024 cyanocobalamin (Vitamin B-12) injection 1,000 mcg Start: 08-27-2024 take 1 tablet by mouth once da cheryl Cyanocobalamin (B-12) 1000 MCG capsule Take 1 tablet by mouth daily. 08/27/2024 Active take 1 tablet by mouth once juan carlos y cyanocobalamin (Vitamin B-12) 1,000 mcg tablet Take 1 tablet (1,000 mcg) by mouth once daily. Active Problems Active Problems Problem Classification Problem Date Documented Da te Episodic/Chronic Abdominal pain (1 source) Right lower quadrant pain; Translations: [Right lower quadrant pain] 01-19-2024 Episodic Allergic reactions (20 sources) History of anesthesia problem; Translations: [History of anesthesia problem] Episodic Anxiety disorders (20 sources) Anxiety; Translations: [Anxiety state, unspecified] Onset: 02-09-2022 02-09-2022 Chronic Asthma (1 source) Asthma-chronic obstructive pulmonary disease overlap syndrome; Translations: [Asthma-COPD overlap syndrome (HCC)] 08-19-2024 Chronic Cancer of breast (20 sources) Malignant neoplasm of upper-outer quadrant of female breast; Translations: [Malignant neoplasm of upper-outer quadrant of unspecified female breast] Onset: 06-11-2015 Resolved: 11-25-2024 06-11-2015 Chronic Cardiac dysrhythmias (20 sources) Atrial fibrillation with rapid ventricular response; Translations: [Unspecified atrial fibrillation] Onset: 01-19-2024 Resolved: 09-16-2024 01-19-2024 Chronic Chronic kidney disease (20 sources) Chronic kidney disease stage 2; Translations: [Chronic kidney disease, stage 2 (mild)] Onset: 10-21-2022 05-07-2023 Chronic Chronic kidney disease (3 sources) Chronic kidney disease; Translations: [Chronic kidney disease, stage 3a (Multi)] Onset: 11-25-2024 Chronic obstructive pulmonary disease and bronchiectasis (20 sources) Pulmonary emphysema; Translations: [Emphysema, unspecified] Onset: 12-28-2024 10-31-2023 Chronic Chronic ulcer of skin (4 sources) Non-pressure chronic ulcer of other part of right foot with fat layer exposed; Translations: [Non-pressure chronic ulcer of other part of right foot with fat layer exposed] Onset: 03-08-2025 03-01-2025 Chronic Congestive heart failure; nonhypertensive (20 sources) Acute heart failure; Translations: [Heart failure, unspecified] Onset: 02-01-2024 01-19-2024 Chronic Coronary atherosclerosis and other heart disease (8 sources) Calcification of coronary artery; Translations: [Atherosclerotic heart disease of [place] coronary artery without angina pectoris] Onset: 01-16-2025 09-16-2024 Chronic Deficiency and other anemia (2 sources) Iron deficiency anemia; Translations: [Iron deficiency anemia, unspecified] 11-18-2024 Episodic Deficiency and other anemia (4 sources) Anemia, unspecified; Translations: [Anemia, unspecified] Onset: 11-08-2024 Episodic Diabetes mellitus with complications (20 sources) 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; Translations: [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 with 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] Onset: 12-09-2021 02-09-2022 Chronic Diabetes mellitus without complication (20 sources) 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 without complication; Translations: [Diabetes mellitus] Onset: 11-17-2018 11-17-2018 Chronic Diabetes mellitus without complication (2 sources) Hyperglycemia; Translations: [Hyperglycemia, unspecified] Onset: 01-18-2025 01-18-2025 Episodic Diseases of white blood cells (3 sources) Lymphocytosis; Translations: [Lymphocytosis (symptomatic)] Onset: 11-18-2024 11-18-2024 Chronic Disorders of lipid metabolism (20 sources) Hyperlipidemia; Translations: [Hypertriglyceridemi a] Onset: 03-08-2019 Resolved: 11-24-2023 03-08-2019 Chronic Essential hypertension (20 sources) Hypertensive disorder; Translations: [Unspecified essential hypertension] Onset: 05-14-2020 05-14-2020 Chronic Gout and other crystal arthropathies (20 sources) Gout; Translations: [Gout, unspecified] Onset: 02-09-2022 02-09-2022 Chronic Heart valve disorders (2 sources) Heart murmur; Translations: [Newly recognized heart murmur] Episodic Immunizations and screening for infectious disease (20 sources) Vaccination needed; Translations: [Need for prophylactic vaccination and inoculation against unspecified single disease] Episodic Nutritional deficiencies (20 sources) Vitamin D deficiency; Translations: [Unspecified vitamin D deficiency] Onset: 02-09-2022 Resolved: 10-23-2022 02-09-2022 Chronic Occlusion or stenosis of precerebral arteries (20 sources) Left carotid artery stenosis; Translations: [Carotid artery occlusion] Onset: 05-14-2020 Chronic Open wounds of extremities (2 sources) Unspecified open wound of unspecified toe(s) without damage to nail, initial encounter; Translations: [Unspecified open wound of unspecified toe(s) without damage to nail, initial encounter] Onset: 02-20-2025 Episodic Osteoarthritis (2 sources) Primary osteoarthritis, unspecified ankle and foot; Translations: [Primary osteoarthritis, right shoulder] Onset: 11-30-2017 11-30-2017 Chronic Osteoporosis (20 sources) Osteoporosis; Translations: [Osteoporosis, unspecified] Onset: 02-09-2022 Resolved: 10-23-2022 02-09-2022 Chronic Other aftercare (20 sources) Patient encounter status; Translations: [Long-term (current) use of other medications] Episodic Other aftercare (2 sources) Long-term current use of anticoagulant; Translations: [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 supervisor (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) use of anticoagulants] 11-08-2024 Episodic Other circulatory disease (1 source) Other specified peripheral vascular diseases; Translations: [Other specified peripheral vascular diseases] Onset: 03-08-2025 Chronic Other connective tissue disease (20 sources) Foot pain; Translations: [Pain in limb] Episodic Other connective tissue disease (1 source) Pain in buttock; Translations: [Myalgia, other site] 10-21-2024 Episodic Other hereditary and degenerative nervous system conditions (1 source) Myelopathy in diseases classified elsewhere; Translations: [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)] Onset: 03-10-2025 Chronic Other injuries and conditions due to external causes (5 sources) Aspiration into respiratory tract; Translations: [Unspecified foreign body in respiratory tract, part unspecified causing other injury, initial encounter] 07-07-2024 Episodic Other injuries and conditions due to external causes (1 source) Abrasion; Translations: [Other injury of unspecified body region, initial encounter] 11-25-2024 Episodic Other liver diseases (1 source) Elevated liver enzymes level; Translations: [Abnormal levels of other serum enzymes] 02-03-2024 Episodic Other lower respiratory disease (20 sources) Organized pneumonia; Translations: [Other specified interstitial pulmonary diseases] 10-13-2023 Chronic Other lower respiratory disease (4 sources) Other specified interstitial pulmonary diseases; Translations: [Other specified interstitial pulmonary diseases] Onset: 06-13-2024 Chronic Other lower respiratory disease (3 sources) Cryptogenic organizing pneumonia; Translations: [Cryptogenic organizing pneumonia] Onset: 11-23-2024 03-09-2025 Chronic Other lower respiratory disease (20 sources) H/O: respiratory disease; Translations: [Personal history of other diseases of respiratory system] Episodic Other lower respiratory disease (1 source) Other disorders of lung; Translations: [Other disorders of lung] Onset: 11-04-2022 Episodic Other lower respiratory disease (3 sources) Nodule of lung; Translations: [Solitary pulmonary nodule] 10-05-2023 Episodic Other lower respiratory disease (8 sources) Radiologic infiltrate of lung ; Translations: [Other nonspecific abnormal finding of lung field] 06-07-2024 Episodic Other non-traumatic joint disorders (3 sources) Pain in right shoulder; Translations: [Pain in right shoulder] Onset: 11-14-2022 Episodic Other non-traumatic joint disorders (2 sources) Swollen ankle region; Translations: [Effusion, left ankle] 01-08-2024 Episodic Other nutritional; endocrine; and metabolic disorders (3 sources) Abnormal weight loss; Translations: [Abnormal weight loss] Onset: 08-29-2022 Episodic Other nutritional; endocrine; and metabolic disorders (4 sources) Weight loss; Translations: [Abnormal weight loss] Episodic Other nutritional; endocrine; and metabolic disorders (19 sources) Weight decreased; Translations: [Abnormal weight loss] Onset: 12-15-2024 12-15-2024 Episodic Other skin disorders (1 source) Submandibular salivary gland swelling; Translations: [Localized swelling, mass and lump, head] 01-19-2024 Episodic Other upper respiratory infections (20 sources) Acute frontal sinusitis; Translations: [Acute frontal sinusitis] Resolved: 10-31-2020 06-12-2023 Episodic Peripheral and visceral atherosclerosis (9 sources) Peripheral vascular disease; Translations: [Peripheral vascular disease, unspecified] Onset: 10-21-2024 10-21-2024 Chronic Pulmonary heart disease (5 sources) Pulmonary hypertension; Translations: [Pulmonary hypertension, unspecified] Onset: 03-09-2025 03-09-2025 Chronic Residual codes; unclassified (20 sources) Obstructive sleep apnea syndrome; Translations: [Obstructive sleep apnea (adult)(pediatric)] Onset: 02-09-2022 02-09-2022 Chronic Residual codes; unclassified (1 source) H/O: artificial organ/tissue; Translations: [S/P breast reconstruction, bilateral] Onset: 06-11-2015 06-11-2015 Chronic Residual codes; unclassified (5 sources) Obstructive sleep apnea (adult) (pediatric); Translations: [Obstructive sleep apnea (adult) (pediatric)] Onset: 05-30-2022 Chronic Residual codes; unclassified (20 sources) History of clinical finding in subject; Translations: [Personal history of other specified diseases] Episodic Residual codes; unclassified (4 sources) 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; Translations: [Genetic susceptibility to malignant neoplasm of breast] Episodic Residual codes; unclassified (18 sources) Tobacco use and exposure - finding; Translations: [Tobacco use] 09-29-2023 Episodic Skin and subcutaneous tissue infections (5 sources) Cellulitis of right toe; Translations: [Cellulitis and abscess of toe, unspecified] Onset: 01-27-2025 01-27-2025 Episodic Spondylosis; intervertebral disc disorders; other back problems (20 sources) Spondylosis without myelopathy or radiculopathy, lumbosacral region; Translations: [Lumbosacral spondylosis without myelopathy] Onset: 08-29-2022 09-01-2022 Chronic Spondylosis; intervertebral disc disorders; other back problems (20 sources) Lumbago with sciatica; Translations: [Low back pain] Onset: 03-09-2017 11-30-2017 Episodic Unclassified (20 sources) Patient encounter status; Translations: [History of Screening for lipoid disorders] 11-25-2024 Unclassified (1 source) History of antineoplastic chemotherapy; Translations: [History of chemotherapy] Onset: 06-11-2015 06-11-2015 Unclassified (1 source) History of anesthesia problem; Translations: [History of anesthesia problem] Onset: 02-09-2022 02-09-2022 Unclassified (20 sources) History of anesthesia problem; Translations: [Other] Onset: 02-09-2022 06-03-2022 Unclassified (4 sources) Other persistent atrial fibrillation; Translations: [Other persistent atrial fibrillation (HCC)] Onset: 04-15-2024 Past or Other Problems Problem Classification Problem Date Documented Da te Episodic/Chronic Acute bronchitis (20 sources) Acute bronchitis; Translations: [Acute bronchitis] Onset: 09-23-2022 Resolved: 10-23-2022 10-23-2022 Episodic Administrative/social admission (3 sources) Advance directive discussed with patient; Translations: [Other specified counseling] Onset: 11-25-2024 11-25-2024 Episodic Cancer of breast (20 sources) History of malignant neoplasm of breast; Translations: [Personal history of malignant neoplasm of breast] Onset: 12-14-2015 12-14-2015 Episodic Cardiac dysrhythmias (20 sources) Palpitations; Translations: [Palpitations] Onset: 11-11-2017 Resolved: 11-25-2024 11-11-2017 Episodic Deficiency and other anemia (20 sources) Anemia; Translations: [Anemia, unspecified] Onset: 11-08-2024 11-08-2024 Episodic Deficiency and other anemia (2 sources) Iron deficiency anemia, unspecified; Translations: [Iron deficiency anemia, unspecified] Onset: 11-18-2024 Episodic Diseases of mouth; excluding dental (20 sources) Sialoadenitis of the submandibular gland; Translations: [Sialoadenitis] Onset: 02-09-2022 Resolved: 11-04-2022 02-09-2022 Episodic Genitourinary symptoms and ill-defined conditions (20 sources) Microscopic hematuria; Translations: [Proteinuria] Onset: 09-23-2022 Resolved: 11-01-2021 09-23-2022 Episodic Malaise and fatigue (3 sources) Asthenia; Translations: [Weakness] Onset: 10-21-2024 10-21-2024 Episodic Mood disorders (20 sources) Mood disorders Onset: 10-31-2020 Resolved: 10-21-2024 09-26-2022 Nonspecific chest pain (4 sources) Chest pain; Translations: [Chest pain, unspecified] Onset: 08-26-2024 08-26-2024 Episodic Nutritional deficiencies (6 sources) Cobalamin deficiency; Translations: [Deficiency of other specified B group vitamins] Onset: 09-09-2024 09-09-2024 Episodic Other aftercare (20 sources) Drug therapy finding; Translations: [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 supervisor (current) use of anticoagulants] Onset: 02-01-2024 02-01-2024 Episodic Other aftercare (2 sources) 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 supervisor (current) use of insulin; Translations: [half-way (current) use of insulin (Multi)] Onset: 02-02-2024 Episodic Other aftercare (2 sources) half-way (current) use of anticoagulants; Translations: [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 supervisor (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) use of anticoagulants] Onset: 11-08-2024 Episodic Other bone disease and musculoskeletal deformities (20 sources) Disorder of bone; Translations: [Disorder of bone and cartilage, unspecified] Onset: 02-09-2022 02-09-2022 Episodic Other circulatory disease (20 sources) Orthostatic hypotension; Translations: [Orthostatic hypotension] Onset: 09-23-2022 Resolved: 11-25-2024 09-23-2022 Episodic Other connective tissue disease (20 sources) Tendinitis of hip; Translations: [Other specified enthesopathies of unspecified lower limb, excluding foot] Onset: 03-09-2017 03-09-2017 Episodic Other connective tissue disease (20 sources) Plantar fasciitis; Translations: [Plantar fascial fibromatosis] Onset: 09-23-2022 Resolved: 10-23-2022 10-23-2022 Episodic Other connective tissue disease (20 sources) Impingement syndrome of right shoulder region; Translations: [Impingement syndrome of right shoulder] Onset: 10-23-2022 10-23-2022 Episodic Other connective tissue disease (20 sources) Pain in right foot; Translations: [Pain in right foot] Onset: 09-23-2022 Resolved: 10-23-2022 10-23-2022 Episodic Other connective tissue disease (2 sources) Myalgia, other site; Translations: [Myalgia, other site] Onset: 10-21-2024 Episodic Other diseases of kidney and ureters (4 sources) Disorder of kidney and ureter, unspecified; Translations: [Disorder of kidney and ureter, unspecified] Onset: 06-12-2023 Episodic Other infections; including parasitic (20 sources) Personal history of other infectious and parasitic diseases; Translations: [History of COVID-19] Onset: 09-01-2022 Resolved: 11-25-2024 09-01-2022 Episodic Other injuries and conditions due to external causes (2 sources) Unspecified foreign body in respiratory tract, part unspecified causing other injury, initial encounter; Translations: [Unspecified foreign body in respiratory tract, part unspecified causing other injury, initial encounter] Onset: 07-20-2024 Episodic Other injuries and conditions due to external causes (2 sources) Other injury of unspecified body region, initial encounter; Translations: [Other injury of unspecified body region, initial encounter] Onset: 11-25-2024 Episodic Other liver diseases (20 sources) Hepatic failure; Translations: [Hepatic failure, unspecified without coma] Onset: 11-11-2024 11-11-2024 Episodic Other liver diseases (2 sources) Abnormal levels of other serum enzymes; Translations: [Abnormal levels of other serum enzymes] Onset: 03-07-2024 Episodic Other liver diseases (4 sources) Hepatic failure, unspecified without coma; Translations: [Hepatic failure, unspecified without coma (HCC)] Onset: 11-08-2024 Episodic Other lower respiratory disease (20 sources) H/O: bronchitis; Translations: [Personal history of other diseases of respiratory system] Resolved: 10-31-2020 Episodic Other lower respiratory disease (20 sources) Dyspnea; Translations: [Shortness of breath] Onset: 11-11-2017 11-11-2017 Episodic Other lower respiratory disease (20 sources) Persistent cough; Translations: [Cough] Onset: 09-23-2022 Resolved: 10-23-2022 10-23-2022 Episodic Other lower respiratory disease (3 sources) Other nonspecific abnormal finding of lung field; Translations: [Other nonspecific abnormal finding of lung field] Onset: 11-04-2022 Episodic Other lower respiratory disease (20 sources) Multiple nodules of lung; Translations: [Other nonspecific abnormal finding of lung field] Onset: 11-04-2022 05-07-2023 Episodic Other lower respiratory disease (20 sources) Dyspnea on exertion; Translations: [Other forms of dyspnea] Onset: 08-26-2024 Resolved: 11-25-2024 09-29-2023 Episodic Other lower respiratory disease (20 sources) Lung field abnormal; Translations: [Other nonspecific abnormal finding of lung field] Onset: 09-29-2023 09-29-2023 Episodic Other lower respiratory disease (6 sources) Shortness of breath; Translations: [Shortness of breath] Onset: 02-25-2023 Episodic Other lower respiratory disease (2 sources) Other forms of dyspnea; Translations: [Other forms of dyspnea] Onset: 11-07-2024 Episodic Other lower respiratory disease (2 sources) Dyspnea, unspecified; Translations: [Dyspnea, unspecified] Onset: 08-26-2024 Episodic Other non-traumatic joint disorders (20 sources) Hip pain; Translations: [Pain in joint, pelvic region and thigh] Onset: 09-23-2022 Resolved: 10-23-2022 10-23-2022 Episodic Other non-traumatic joint disorders (12 sources) Pain in right hip joint; Translations: [Pain in right hip] Onset: 09-23-2022 Resolved: 10-23-2022 10-23-2022 Episodic Other non-traumatic joint disorders (2 sources) Effusion, left ankle; Translations: [Effusion, left ankle] Onset: 01-08-2024 Episodic Other nutritional; endocrine; and metabolic disorders (20 sources) H/O: diabetes mellitus; Translations: [Personal history of other endocrine, metabolic, and immunity disorders] Onset: 02-03-2024 Resolved: 11-25-2024 02-03-2024 Episodic Other nutritional; endocrine; and metabolic disorders (20 sources) Abnormal weight loss; Translations: [Loss of weight] Onset: 08-29-2022 Resolved: 11-04-2022 Episodic Other screening for suspected conditions (not mental disorders or infectious disease) (20 sources) Other specified abnormal findings of blood chemistry; Translations: [Other abnormal blood chemistry] Onset: 02-01-2024 02-01-2024 Episodic Other skin disorders (20 sources) Mass of submandibular region; Translations: [Swelling, mass, or lump in head and neck] Onset: 09-23-2022 Resolved: 11-04-2022 11-04-2022 Episodic Other skin disorders (2 sources) Nonscarring hair loss, unspecified; Translations: [Nonscarring hair loss, unspecified] Onset: 08-02-2024 Episodic Other upper respiratory disease (20 sources) Nasal congestion; Translations: [Other disease of nasal cavity and sinuses] Onset: 09-23-2022 Resolved: 11-04-2022 11-04-2022 Episodic Other upper respiratory disease (20 sources) Nasal discharge; Translations: [Other disease of nasal cavity and sinuses] Onset: 09-23-2022 Resolved: 11-04-2022 11-04-2022 Episodic Pleurisy; pneumothorax; pulmonary collapse (20 sources) Pneumothorax; Translations: [Pneumothorax, unspecified] Onset: 10-05-2023 Resolved: 11-25-2024 10-05-2023 Episodic Residual codes; unclassified (20 sources) BRCA1 gene mutation positive; Translations: [Genetic susceptibility to malignant neoplasm of breast] Onset: 06-11-2015 06-11-2015 Episodic Residual codes; unclassified (1 source) History of bilateral mastectomy; Translations: [History of bilateral mastectomy] Onset: 06-11-2015 06-11-2015 Episodic Residual codes; unclassified (20 sources) Influenza-like symptoms; Translations: [Other general symptoms] Onset: 09-23-2022 Resolved: 11-04-2022 11-04-2022 Episodic Residual codes; unclassified (20 sources) History of antineoplastic chemotherapy; Translations: [Personal history of antineoplastic chemotherapy] Onset: 06-11-2015 06-11-2015 Episodic Residual codes; unclassified (3 sources) H/O: artificial organ/tissue; Translations: [Other specified postprocedural states] Onset: 06-11-2015 06-11-2015 Episodic Residual codes; unclassified (20 sources) History of breast reconstruction; Translations: [Other specified postprocedural states] Onset: 06-11-2015 05-30-2022 Episodic Residual codes; unclassified (20 sources) Viral syndrome; Translations: [Other general symptoms and signs] Onset: 09-23-2022 Resolved: 11-04-2022 11-04-2022 Episodic Residual codes; unclassified (2 sources) Other specified postprocedural states; Translations: [Other specified postprocedural states] Onset: 02-25-2023 Episodic Residual codes; unclassified (2 sources) Genetic susceptibility to malignant neoplasm of breast; Translations: [Genetic susceptibility to malignant neoplasm of breast] Onset: 02-25-2023 Episodic Residual codes; unclassified (2 sources) Genetic susceptibility to other malignant neoplasm; Translations: [Genetic susceptibility to other malignant neoplasm] Onset: 02-25-2023 Episodic Residual codes; unclassified (2 sources) Estrogen receptor negative status [ER-]; Translations: [Estrogen receptor negative status (ER-)] Onset: 11-24-2023 Episodic Residual codes; unclassified (8 sources) Requires vaccination; Translations: [Need for vaccination] Screening and history of mental health and substance abuse codes (2 sources) Personal history of nicotine dependence; Translations: [Personal history of nicotine dependence] Onset: 05-27-2024 Episodic Shock (20 sources) Cardiogenic shock; Translations: [Cardiogenic shock] Onset: 11-08-2024 Resolved: 12-12-2024 11-11-2024 Episodic Syncope (20 sources) Syncope; Translations: [Syncope and collapse] Onset: 08-29-2022 Resolved: 11-25-2024 Episodic Unclassified (1 source) Problem Unclassified (9 sources) History of clinical finding in subject; Translations: [History of fatigue] Unclassified (1 source) Vaccination needed; Translations: [Need for vaccination] Unclassified (20 sources) Onset: 11-04-2022 Resolved: 01-27-2025 11-04-2022 Urinary tract infections (4 sources) Urinary tract infectious disease; Translations: [Urinary tract infection, site not specified] Onset: 10-21-2024 10-21-2024 Episodic Viral infection (20 sources) Disease caused by 2019-nCoV; Translations: [Other specified viral infection] Onset: 09-23-2022 Resolved: 11-04-2022 11-04-2022 Episodic NEGATED: Highlighted row has not occurred!Residual codes; unclassified (20 sources) Disease Episodic Results Test Name Value Interpretation Reference Range Facility CBC panel Auto (Bld)on 03-10 Erythrocyte distribution width (RBC) [Ratio] 18.5 % High 11.5-15.0 [facility] Comment on above: Order Comment: Speci men Type: BLOOD SPECIMENOrdering Facility: [facility] Address: [address] [place] [address] Performed By: #### 5 8410-2 ####[facility]ORATORYCLIA [id number] [place] [address] [place] Hematocrit (Bld) [Volume fraction] 22.6 % Low 36.0-46.0 [facility] Comment on above: Order Comment: Speci men Type: BLOOD SPECIMENOrdering Facility: [facility] Address: [address] [place] [address] Performed By: #### 5 8410-2 ####[facility]ORATORYCLIA [id number] OF [facility] Hemoglobin (Bld) [Mass/Vol] 6.2 g/dL Low 11.5-15.5 [facility] Comment on above: Order Comment: Speci men Type: BLOOD SPECIMENOrdering Facility: [facility] Address: [address] [place] [address] Performed By: #### 5 8410-2 ####[facility]ATORYCLIA [id number] [address] MCH (RBC) [Entitic mass] 25.6 pg Low 26.0-34.0 [facility] Comment on above: Order Comment: Speci men Type: BLOOD SPECIMENOrdering Facility: [facility] Address: [address] [place] [address] Performed By: #### 5 8410-2 ####[facility]ORYCLIA [id number] [address] MCHC (RBC) [Mass/Vol] 27.4 g/dL Low 30.5-36.0 [facility] Comment on above: Order Comment: Speci men Type: BLOOD SPECIMENOrdering Facility: [facility] Address: [address] [place] [address] Performed By: #### 5 8410-2 ####[facility]ORYCLIA [id number] [address] MCV (RBC) [Entitic vol] 93.4 fL Normal 80.0-100.0 [facility] Comment on above: Order Comment: Speci men Type: BLOOD SPECIMENOrdering Facility: [facility] Address: [address] [place] [address] Performed By: #### 5 8410-2 ####[facility]ORYCLIA [id number] [address] Nucleated RBC (Bld) [#/Vol] 10*3/uL Normal <0.01 [facility] Comment on above: Order Comment: Speci men Type: BLOOD SPECIMENOrdering Facility: [facility] Address: [address] [place] [address] Performed By: #### 5 8410-2 ####[facility]ATORYCLIA [id number] [address] [place] Platelet mean volume (Bld) [Entitic vol] 10.1 fL Normal 9.0-12.7 [facility] Comment on above: Order Comment: Speci men Type: BLOOD SPECIMENOrdering Facility: [facility] Address: [address] [place] [address] Performed By: #### 5 8410-2 ####[facility]ORYCLIA [id number] [address] [place] Platelets (Bld) [#/Vol] 258 10*3/uL Normal 150-400 [facility] Comment on above: Order Comment: Speci men Type: BLOOD SPECIMENOrdering Facility: [facility] Address: [address] [place] [address] Performed By: #### 5 8410-2 ####[facility]ORYCLIA [id number] [place] [address] [place] RBC (Bld) [#/Vol] 2.42 10*6/uL Low 3.90-5.20 [facility] Comment on above: Order Comment: Speci men Type: BLOOD SPECIMENOrdering Facility: [facility] Address: [address] [place] [address] Performed By: #### 5 8410-2 ####[facility]ORYCLIA [id number] [address] [place] WBC (Bld) [#/Vol] 4.72 10*3/uL Normal 3.70-11.00 [facility] Comment on above: Order Comment: Speci men Type: BLOOD SPECIMENOrdering Facility: [facility] Address: [address] [place] [address] Performed By: #### 5 8410-2 ####[facility]ATORYCLIA [id number] [address] [place] CNOVon 03-10-2025 CNOV Office Visit (AGOCMR ) ROLANDO PETERS ([id number]) 1945 F Date Time Provider Department 03/10/25 11:45 AM DOMINICK HUGGINS AGOR During your visit today, we recorded the following information about you: Pulse Blood pressure Weight Height 79/minute 115/60 59.6 kg 1.702 m Dominick Huggins MD 03/10/2025 12:05 PM Signed SPINE SURGERY ESTABLISHED PATIENT DATE OF SERVICE: 03/10/2025 Patient Name: Ms.Marie Kelsy Peters Date of : 1945 Current Age: [age] year old Sex: female Subjective Chief Complaint: History of Present Illness: Ms.Marie Kelsy Peters has a past medical history of diabetes mellitus type 2, INGA, HTN, HLD, bilateral malignant neoplasm of breast status post right-sided mastectomy in 1993 and left-sided mastectomy in 2010. Patient was last seen in the office on 02/08/2025 and noted right-sided neck pain radiating into her shoulder, with occasional tingling down the anterior aspect of her arms into her hands, right > left. Endorsed dexterity and balance issues. 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 She wished to consider surgical intervention. Additionally, she also reported a 2-3 year history of back pain that had been gradually worsening. The pain started in her lower back and radiated into her right gluteal region and down the entire right leg, accompanied by numbness and tingling in both feet, right > left. She also described urinary urgency at that time and denied any saddle anesthesia. She noted a slight increase in weakness in RLE. She reported a recent right foot infection and was on doxycycline after completing a course of Keflex that did not clear the infection. She had one episode of bowel incontinence without saddle anesthesia. On exam, she had 3/5 weakness in right DF/EHL, 4/5 right PF and ambulated with a cane. MRI of lumbar spine demonstrated nerve root compression at L3-L5. Discussed undergoing lumbar laminectomy approximately 8 weeks after cervical surgery if symptoms persisted. C4-C6 Laminoplasty is scheduled for 03/30/2025, L3-L5 Laminectomy is scheduled for 05/25/2025. She presents to the office today to further discuss surgery and sign consent. Rolando Peters is a 80-year-old female presenting for a preoperative consultation for cervical laminectomy. 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 She is scheduled for a CT angiogram on March 27 to further evaluate the condition. She inquires whether to proceed with the scheduled cervical laminectomy on March 30 or wait for the CT angiogram results, as her vascular surgeon mentioned potential interventions such as stenting or endarterectomy based on the findings. She has been experiencing significant discomfort in her right leg, which has hindered her ability to continue physical therapy. She denies any signs of infection. She also has a dental cleaning scheduled for April 20 and inquires about the appropriate timing for rescheduling it postoperatively. Major Risk Factors Obesity normal BMI: 21.13 kg/m2 High: BMI > 40 Moderate: BMI 30-40 Normal: BMI < 30 Diabetes normal Last HbA1C: - 01/27/2025 High: A1C > 8 Moderate: A1C 7-8 Normal: A1C < 7 Hx of DVT / PE normal High: dx of DVT / PE Normal: no dx of DVT / PE Smoking normal Last Status: Never High: Current smoker Normal: Non smoker Narcotics Use normal High:NarxCare >=300 Moderate: 100-299 Normal: 0-99 Depression High Risk High: PHQ-9 >14 Moderate: PHQ-9 5-14 Normal: PHQ-9 < 5 Data from [facility] Epic on prior therapies: PREVIOUS CONSERVATIVE TREATMENT: -Medication: Flexeril, Prednisone (for 2-3 months for lungs and recently completed), Tylenol -Physical therapy: 02/15/2025, 02/22/2025 for neck -02/15/2025 for low back -Pain Management: No recent participation -Injections: Lumbar FELECIA 4-5 years ago- no relief. Unsure of level. PREVIOUS SPINE SURGERY: None Surgical Risk Factors: Smoking status: Denies Anticoagulants/antiplat elets: Eliquis bid for afib in January 2024, ablation in 07/2024 Diabetic: Yes, last hgba1c 6.0% from 01/27/2025 Objective PHYSICAL EXAM There were no vitals taken for this visit. 5/5 motor strength in BUE and BLE except 3/5 right DF/EHL, 4/5 right PF, ambulates with cane SILT throughout extremities No [facility]MN signs Results: MRI of cervical spine WO contrast from 02/01/2025: IMPRESSION: Multilevel degenerative changes of cervical spine, most significant at C5-C6, as detailed above. [id number] spinal canal stenosis at C5-C6, with mild mass effect on right aspect of spinal cord with mild spinal cord deformity. No convincing evidence of T2 hyperintense signal within cervical spinal (more content not included)... Normal [facility] Comprehensive metabolic 2000 panelon 03-10-2025 Albumin [Mass/Vol] 3.9 g/dL Normal 3.9-4.9 [facility] Comment on above: Order Comment: Speci men Type: BLOOD SPECIMENOrdering Facility: [facility] Address: [address] [place] [address] Performed By: #### 2 4323-8 ####[facility]ATORYCLIA [id number] [address] STATES OF [facility] ALP [Catalytic activity/Vol] 53 U/L Normal 34-123 [facility] Comment on above: Order Comment: Speci men Type: BLOOD SPECIMENOrdering Facility: [facility] Address: [address] [place] [address] Performed By: #### 2 4323-8 ####[facility]ATORYCLIA [id number] [address] [place] ALT With P-5'-P [Catalytic activity/Vol] 58 U/L High 7-38 [facility] Comment on above: Order Comment: Speci men Type: BLOOD SPECIMENOrdering Facility: [facility] Address: [address] [place] [address] Performed By: #### 2 4323-8 ####[facility]ORATORYCLIA [id number] [place] [address] [place] Anion gap [Moles/Vol] 14 mmol/L Normal 8-15 [facility] Comment on above: Order Comment: Speci men Type: BLOOD SPECIMENOrdering Facility: [facility] Address: [address] [place] [address] Performed By: #### 2 4323-8 ####[facility]ATORYCLIA [id number] [place] [address] [place] AST With P-5'-P [Catalytic activity/Vol] 85 U/L High 13-35 [facility] Comment on above: Order Comment: Speci men Type: BLOOD SPECIMENOrdering Facility: [facility] Address: [address] [place] [address] Performed By: #### 2 4323-8 ####[facility]ATORYCLIA [id number] [place] [address] [place] Bilirubin [Mass/Vol] 0.4 mg/dL Normal 0.2-1.3 [facility] Comment on above: Order Comment: Speci men Type: BLOOD SPECIMENOrdering Facility: [facility] Address: [address] [place] [address] Performed By: #### 2 4323-8 ####[facility]ORYCLIA [id number] [address] [place] Calcium [Mass/Vol] 8.9 mg/dL Normal 8.5-10.2 [facility] Comment on above: Order Comment: Speci men Type: BLOOD SPECIMENOrdering Facility: [facility] Address: [address] [place] [address] Performed By: #### 2 4323-8 ####[facility]ATORYCLIA [id number] [place] [address] [place] Chloride [Moles/Vol] 105 mmol/L Normal 98-107 [facility] Comment on above: Order Comment: Speci men Type: BLOOD SPECIMENOrdering Facility: [facility] Address: [address] [place] [address] Performed By: #### 2 4323-8 ####[facility]ORYCLIA [id number] [address] [place] CO2 [Moles/Vol] 20 mmol/L Low 22-30 [facility] Comment on above: Order Comment: Speci men Type: BLOOD SPECIMENOrdering Facility: [facility] Address: [address] [place] [address] Performed By: #### 2 4323-8 ####[facility]ORYCLIA [id number] [address] [place] [facility] Creatinine [Mass/Vol] 1.01 mg/dL High 0.58-0.96 [facility] Comment on above: Order Comment: Speci men Type: BLOOD SPECIMENOrdering Facility: [facility] Address: [address] [place] [address] Performed By: #### 2 4323-8 ####[facility]ITALCLIA [id number] [address] eGFRcr SerPlBld CKD-EPI 2020 57 mL/min/1.73m??? Low >=60 [facility] Comment on above: Order Comment: Speci men Type: BLOOD SPECIMENOrdering Facility: [facility] Address: [address] [place] [address] Result Comment: Sakina mated Glomerular Filtration Rate (eGFR) is calculated using the 2020 CKD-EPI creatinine equation. This equation utilizes serum creatinine, sex, and age as parameters. The creatinine assay has traceable calibration to isotope dilution-mass spectrometry. Refer to KDIGO guidelines for clinical interpretation. In patients with unstable renal function, e.g. those with acute kidney injury, the eGFR may not accurately reflect actual GFR. Performed By: #### 2 4323-8 ####[facility]ORATORYCLIA [id number] [address] OF [facility] Glucose [Mass/Vol] 77 mg/dL Normal 74-99 [facility] Comment on above: Order Comment: Speci men Type: BLOOD SPECIMENOrdering Facility: [facility] Address: [address] [place] [address] Result Comment: The [place] Diabetes Association (ADA) provides guidance for cutoff values for fasting glucose and random glucose. The ADA defines fasting as no caloric intake for at least 8 hours. Fasting plasma glucose results between 100 to 125 mg/dL indicate increased risk for diabetes (prediabetes). Fasting plasma glucose results greater than or equal to 126 mg/dL meet the criteria for diagnosis of diabetes. In the absence of unequivocal hyperglycemia, results should be confirmed by repeat testing. In a patient with classic symptoms of hyperglycemia or hyperglycemic crisis, random plasma glucose results greater than or equal to 200 mg/dL meet the criteria for diagnosis of diabetes. Reference: Standards of Medical Care in Diabetes 2016, [place] [employer]. Diabetes Care. 2016.39(Suppl 1). Performed By: #### 2 4323-8 ####[facility]ATORYCLIA [id number] [place] [address] [place] Potassium [Moles/Vol] 5.6 mmol/L High 3.7-5.1 [facility] Comment on above: Order Comment: Speci men Type: BLOOD SPECIMENOrdering Facility: [facility] Address: [address] [place] [address] Performed By: #### 2 4323-8 ####[facility]ATORYCLIA [id number] [place] [address] [place] Protein [Mass/Vol] 6.3 g/dL Normal 6.3-8.0 [facility] Comment on above: Order Comment: Hughi men Type: BLOOD SPECIMENOrdering Facility: [facility] Address: [address] [place] [address] Performed By: #### 2 4323-8 ####[facility]ATORYCLIA [id number] [place] [address] [place] Sodium [Moles/Vol] 139 mmol/L Normal 136-144 [facility] Comment on above: Order Comment: Speci men Type: BLOOD SPECIMENOrdering Facility: [facility] Address: [address] [place] [address] Performed By: #### 2 4323-8 ####[facility]ATORYCLIA [id number] [place] [address] [place] Urea nitrogen [Mass/Vol] 13 mg/dL Normal 7- [facility] Comment on above: Order Comment: Speci men Type: BLOOD SPECIMENOrdering Facility: [facility] Address: [address] [id number] Performed By: #### 2 4323-8 ####[facility]ORATORYCLIA [id number] [place] [address] [place] HISTORY PHYSICALon HISTORY PHYSICAL HNO ID: [id number] Author: EDEN LYNCH APRN.WINDOWS TECHNICAL SPECIALIST Service: ? Author Type: Nurse Practitioner Type: H&P Filed: 03/10/2025 15:28 Note Text: [facility] HISTORY AND PHYSICAL EXAMINATION SERVICE DATE: 03/10/2025 SERVICE TIME: 3:21 PM PRIMARY CARE PHYSICIAN: Celia Al, Assessment Patient has the following medical conditions which may affect hodan-operative course: Preop examination See note for medical conditions which may affect hodan-operative course addressed in visit today. Spinal stenosis in cervical region See HPI, surgery scheduled 03/30/25 PAF (paroxysmal atrial fibrillation) (HCC) s/p PVI + PWI, and ablation of atypical flutter with anterior mitral line 04/2024 Stable on carvedilol, Eliquis Follow cardiology Dr. Jerome [facility] 12/12/24 EKG 12/12/24 showed Sinus Rhythm in care everywhere EKG today - NSR Essential (primary) hypertension Controlled on amlodipine, carvedilol, lasix, losartan Instructed to take amlodipine, carvedilol and hold lasix, losartan DOS. 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 Jerome ECHO 01/16/25 Stress Combined Conclusion: Normal pharmacological myocardial perfusion study. Findings suggest a low risk of cardiac events. Perfusion Comments: LV perfusion is probably normal at rest. LV perfusion is probably normal with stress. There is no evidence of inducible ischemia. Perfusion Defect: There is a mild severity left ventricular stress perfusion defect that is medium in size present in the inferior segment(s) that is fixed. The defect is consistent with abnormal perfusion in the RCA territory. There is normal wall motion in the defect area. The defect appears to be an artifact caused by motion. Stress Function: Left ventricular function post-stress is normal. Post-stress ejection fraction is 58%. No regional wall motion abnormalities. Stress ECG: Conclusion: The stress test is normal. 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 (HCC) Jentadueto - instructed to hold DOS 01/27/25 A1C 6.0 Dyslipidemia On Zetia, Vascepa Instructed to stop Vascepa 7 days before surgery Obstructive sleep apnea syndrome Complaint with APAP Instructed patient to bring APAP to DOS COPD (chronic obstructive pulmonary disease) ([facility]) Spiriva, and uses rescue inhaler as needed Hospitalizations: 08/2024 with PNA; 10/2024 ED visit with flu and dyspnea, improved 11/08/24 CXR showed no acute cardiopulmonary process Patient reports Shortness of Breath on exertion, no home O2 use Today SpO2 99% on RA, Lung sound CTA Instructed to use inhalers as prescribed and bring to DOS Stage 3 chronic kidney disease ([facility]) Kerendia 11/25/24 Pipe Insulator 0.98, GFR 59 Pulmonary hypertension ([facility]) ECHO 07/25/24 showed RVSP of 72mmHg, normal RV function Follow pulmonology TR[facility]ITY 12/28/24 - optimization in scanned doc ECHO 07/25/24 Left Ventricle: Left ventricle size is normal. Normal wall thickness. Normal left ventricular systolic function. EF by 2D Simpsons Biplane is 55%. Normal wall motion. Grade II diastolic dysfunction with increased LAP. Right Ventricle: Right ventricle size is normal. Normal systolic function. Aortic Valve: Mild (1+) regurgitation. Mild stenosis of the aortic valve. AV mean gradient is 7 mmHg. Mitral Valve: Moderately thickened leaflets. Mildly calcified leaflets. Mild annular calcification. Moderate (2+) regurgitation with a posterior directed jet. Mild stenosis noted. Tricuspid Valve: Mild to moderate (1-2+) regurgitation. RVSP is 72 mmHg. Bilateral carotid artery stenosis S/p right CEA Anemia Blood transfusion x2 on 01/17/25 and iron transfusion x1 Following PCP on identifying cause of anemia On oral iron supplement 02/20/25 HANDH 7.8/.4 CBC today PVD (peripheral vascular disease) On Pletal Some right leg pain when walking, edema at right ankle Following vascular provider in [place] ANESTHESIA FINDINGS: Intubation History: No history of difficult intubation. No abnormal airway history Significant Anesthesia Considerations: potential slow emergence Airway History: No history of difficult airway No abnormal airway history Freedman Activity Status Index: METS: Take care of self; that is eating, dressing, bathing, using the toilet (2.75 METs) DASI Score: 2.75 Patient denies any chest pain or undue shortness of breath with the above physical activity. Clinical Frailty Scale: 4. Apparently vulnerable ARISCAT Score: Age: 51-80 Preoperative SpO2: >=96% Respiratory infection in the l (more content not included)... Normal [facility] PT panel Coag (PPP)on 2024 INR Coag (PPP) [Relative time] 1.2 {INR} Normal 0.9-1.3 [facility] Comment on above: Order Comment: Speci men Type: BLOOD SPECIMENOrdering Facility: [facility] Address: [address] [place] [address] Result Comment: Sandra min K Antagonist (VKA) Therapeutic Range: INR 2 to 3 (Target INR of 2.5) Note: For patients treated with VKA drugs, such as warfarin, the [place] [employer] 2012 Guideline recommends a therapeutic INR range of 2 to 3 (target INR of 2.5). This recommendation includes high-risk patients with antiphospholipid syndrome with previous arterial or venous thromboembolism, current-generation mechanical or bioprosthetic aortic heart valve replacement. Note: Patients with mechanical aortic valve replacement and additional risk factors for thromboembolic events (atrial fibrillation, previous thromboembolism, LV dysfunction, hypercoagulable conditions) or an older generation mechanical AVR (i.e., ball in-Cage) or any mechanical MVR should have a INR therapeutic range of 2.5 to 3.5 (target INR of 3). Timothy LOMBARDO, et al. Chest 2012, 141:7S-47S Neel ALARCON et al. [facility] 2017, 70: 252-289 Performed By: #### 3 4528-0, 24885-6 ####[facility] LABCLIA [id number] [place] [address] [place] PT Coag (PPP) [Time] 11.9 s Normal <13.1 [facility] Comment on above: Order Comment: Speci men Type: BLOOD SPECIMENOrdering Facility: [facility] Address: [address] [place] [address] Performed By: #### 3 4528-0, 32899-8 ####[facility] LABCLIA [id number] [place] [address] [place] STAPHYLOCOCCUS AUREUS AND MR SA SCREEN, PCR, NASALon 03-10-2025 S. aureus and MRSA panel CYNDI+probe (Nose) Indeterminate Abnormal Not Detected [facility] Comment on above: Order Comment: Speci men Type: SWABOrdering Facility: [facility] Address: [address] [place] [address] Performed By: #### S APCR ####[facility]ORATORYCLIA [id number] [address] OF [facility] TYPE AND SCREEN,30 DAYon ABO O Normal [facility] Comment on above: Order Comment: Speci men Type: BLOOD SPECIMENOrdering Facility: [facility] Address: [address] [place] [address] Performed By: #### T SCR30 ####[facility] BANKCLIA [id number] [address] Rh Nom (Bld) Positive Normal [facility] Comment on above: Order Comment: Speci men Type: BLOOD SPECIMENOrdering Facility: [facility] Address: [address] [place] [address] Performed By: #### T SCR30 ####[facility] BANKCLIA [id number] [address] aPTT PPPon 03-10-2025 aPTT Coag (PPP) [Time] 27.8 s Normal 23.0-32.4 [facility] Comment on above: Order Comment: Speci men Type: BLOOD SPECIMENOrdering Facility: [facility] Address: [address], [place] [id number] Performed By: #### 3 4528-0, 68848-9 ####[facility] LABCLIA [id number] [place] [address] [place] 36on 03-09-2025 36 Normal [facility] 36 [facility] 36 Received a phone christy ramirez from Cassandra with [facility]. She was calling in wanting to get Dr. Jerome's opinion on switching medications for patient/adding on new medication. Provided call back number [phone]. Thank you! [facility] CNTHERAPYon 03-09-2025 CNTHERAPY OT/PT/Speech Visit (PTWS) ROLANDO PETERS ([id number]) 1945 F Date Time Provider Department 03/09/25 11:00 AM MIRNA NAIK PTWS Date Time Provider Department Center 03/09/2025 11:00 AM [id number], MARIAH PTWS [facility] Reason for Visit: Physical Therapy [503] Primary Visit Diagnosis:Spinal stenosis of cervical region [M48.02] Allergies As of Date: 03/09/2025 Noted Allergy Reaction ISOSULFAN BLUE 02/10/2012 10 - Anaphylaxis METHYLENE BLUE 09/01/2022 10 - Anaphylaxis ADHESIVE 07/18/2010 2 - Rash SULFA (SULFONAMIDE ANTIBIOTICS) 07/18/2010 2 - Rash Date Reviewed: 03/08/2025 Reviewed by: Yasmin Gauthier, RN - Fully Assessed Prescriptions as of 03/09/2025 - Ferrous Sulfate 142 mg (45 mg iron) TbER Take by mouth two times a day. - acetaminophen (TYLENOL EXTRA STRENGTH) 500 mg tablet Take 1,000 mg by mouth every 8 hours as needed for pain. - gabapentin (NEURONTIN) 100 mg capsule Take 1 capsule by mouth daily at bedtime for 30 days. - pantoprazole DR (PROTONIX) 40 mg tablet Take by mouth once daily. - sertraline (ZOLOFT) 25 mg tablet Take 25 mg by mouth once daily. - SPIRIVA RESPIMAT 2.5 mcg/actuation inhaler Inhale 2 puffs as instructed. - amLODIPine (NORVASC) 2.5 mg tablet Take 2.5 mg by mouth once daily. - carvedilol (COREG) 12.5 mg tablet Take 12.5 mg by mouth two times a day with meals. - apixaban (ELIQUIS) 5 mg tab(s) Take 5 mg by mouth two times a day. - furosemide (LASIX) 20 mg tablet Take 20 mg by mouth every other day. - albuterol HFA (PROVENTIL HFA, VENTOLIN HFA) 90 mcg/actuation inhaler albuterol sulfate HFA 90 mcg/actuation aerosol inhaler - cholecalciferol (VITAMIN D3) 50 mcg (2,000 unit) tablet Take 4,000 Units by mouth as needed. - Clindamycin Phosphate (CLEOCIN T) 1 % lotion as needed. - cyclobenzaprine (FLEXERIL) 5 mg tablet Take 1 tablet (5 mg) by mouth as needed at bedtime for muscle spasms. - ezetimibe (ZETIA) 10 mg tablet Take 1 tablet (10 mg) by mouth in the morning. - KERENDIA 10 mg tablet Take 1 tablet by mouth every afternoon. - fluocinonide (LIDEX) 0.05 % external solution as needed. - icosapent ethyl (VASCEPA) 1 gram capsule TAKE 2 CAPSULES BY MOUTH 2 TIMES DAILY - JENTADUETO XR 2.5-1,000 mg XR tab Take 1 tablet by mouth two times a day. - losartan (COZAAR) 100 mg tablet Take 1 tablet by mouth every afternoon. - rosuvastatin (CRESTOR) 10 mg tablet Take 1 tablet by mouth every afternoon. Normal [facility] MR/BMSReece 03-08-2025 MR/BMS.KAROLINE [facility] Vascular Surgery [facility] [address] [place] [address] OFFICE VISIT Date of Service: 03/08/25 MR#: [id number] Acct: [id number] Name: ROLANDO PETERS Rep #: [id number] : 1945 Provider: MEIR Myrick Age/Sex: 80/F Location: [facility] [place] Status: Signed Intake Vital Signs 03/01/25 13:36 03/08/25 13:34 Height 5 ft 7 in BP 103/36 L Blood Pressure Location Lt brachial Position Sitting Respiration 16 Pulse 76 Pulse Source Monitor Temp 98 F Temp Source Temporal Pulse Oximetry (%) 98 Oxygen Delivery Method room air Intake Visit Reasons: PAD, toe ulcer Is patient in pain?: Yes Allergies blue dye Allergy (Severe, Verified 03/08/25 13:36) Anaphylaxis Sulfa (Sulfonamide Antibiotics) Allergy (Verified 03/08/25 13:36) Rash Medications ???Medication ???Instructions ???Recorded ???Confirmed ???Type amlodipine 2.5 mg tablet 2.5 mg PO DAILY 03/01/25 03/08/25 History apixaban 5 mg tablet (Eliquis) 5 mg PO BID 03/01/25 03/08/25 Hist ory blood sugar diagnostic (Contour 03/01/25 03/08/25 History Next Test Strips) cyclobenzaprine 5 mg tablet 5 mg PO QHS PRN PRN muscle spasm 0 03/01/25 03/08/25 History ezetimibe 10 mg tablet 10 mg PO DAILY 03/01/25 03/08/25 H istory finerenone 10 mg tablet (Kerendia) 10 mg PO DAILY 03/01/25 03/08/25 History furosemide 20 mg tablet 20 mg PO QODAY 03/01/25 03/08/25 H istory icosapent ethyl 1 gram capsule 2 g PO BID 03/01/25 03/08/25 Histo ry (Vascepa) linagliptin 2.5 mg-metformin ER tab PO 03/01/25 03/08/25 History 1,000 mg tablet,extended release 24 hr (Jentadueto XR) mupirocin 2 % topical ointment topical TID 03/01/25 03/08/25 Hist ory pantoprazole 40 mg tablet,delayed 40 mg PO 03/01/25 03/08/25 Histor y release rosuvastatin 10 mg tablet 10 mg PO DAILY 03/01/25 03/08/25 H istory tiotropium bromide 2.5 2 puff inhalation DAILY 03/01/25 0 03/08/25 History mcg/actuation mist for inhalation (Spiriva Respimat) Is last menstrual period known: No Post menopausal: Yes Patient : No Have you fallen in the past year?: Yes PFSH Medical History (Updated 03/08/25 @ 19:04 by MEIR Myrick) Hx of carotid stenosis Surgical History (Updated 03/08/25 @ 13:32 by Mel Loza) History of cataract extraction ( 2005) H/O: hysterectomy ( 1998) Hx of mastectomy ( 1993) Family History (Updated 03/08/25 @ 13:33 by Mel Loza) Other CVA (cerebral vascular accident) Cancer Heart disease Hypertension Kidney disease Social History Smoking Status: Never smoker HPI HPI HPI: ROLANDO PETERS, is a 80 F who presents to the office today for evaluation of her PAD in the setting of nonhealing R 1st toe ulceration as referred by Dr. Francisco. She had an arterial study 03/07/25 which demonstrated R JUSTYNA 0.22 with monophasic waveforms and L JUSTYNA 0.66 with multiphasic waveforms. She also had a venous reflux study which showed only focal R SFJ reflux. She reports the R toe wound was very superficial, and seems to be healed She does endorse RLE rest pain which is worse with elevation and improves with dependency which has been ongoing since at least January. She reports it has been a relatively slow progression to this point, previously had pain in her legs just with activity. She does endorse intermittent pain in the LLE but reports that this is not bad compared to the RLE at present. She has previously attributed this all to her known spine disease; she is actually scheduled for a cervical discectomy (she also has upper extremity paresthesias/weakness as well) in mid-March and then for lumbar discectomy 8 weeks after that pending good recovery. She has not had any prior nonhealing wounds. She is a former smoker, quit in the . She is diabetic. She does have a history significant for CHF and Afib s/p ablation in July 2024 (still anticoagulated with Eliquis). She also has a history of prior R CEA 20 years ago; her cementer oil well continues to monitor this. ROS General General: Yes weight change, fatigue and breast cancer; No appetite, colon cancer or weakness HEENT HEENT: Yes eye surgery and swollen glands; No difficulty swallowing, eye injury or hoarseness Endo Endocrine: Yes diabetes mellitus, Hair loss, heat intolerance and cold intolerance; No thyroid disease or thyroid cancer Skin Skin: No rash or changing moles Musc Musculoskeletal: Yes back problems, arthritis and gout; No rheumatoid arthritis or joint pain Cardio Cardiovascular: Yes murmur, heart disease, atrial fibrillation and high blood pressure; No pacemaker, heart attack, heart stent, palpitations, shortness of breath with exertion or chest pain Psych Psychiatric: Ye (more content not included)... Normal [facility] Lower Ext Art Exam w/o Exerc marga 03-07-2025 Lower Ext Art Exam w/o Exercis [facility] [address] [place] [address] Lower Ext Art Exam w/o Exercis 03/07/25 0909 MR#: [id number] Acct: [id number] Name: ROLANDO PETERS Rep #: [id number] : 1945 80 From: Antwan Adams MD Attending Dr: Dr. Rosalee Francisco, DPM Status: RE G RCR Ordering Dr: Rosalee Francisco DPM Date: 03/07/25 Location: [facility] Sex: F C Admitted: Reason For Study Reason For Study: Edema, Rt Foot ulcer Procedure A bilateral lower extremity continuous wave Doppler with analog waveform analysis,segmental pressures,and ankle brachial indexes without exercise. Preliminary report given to [facility] Nurse. Left Segmental Pressures Left brachial= 178mmHg. Left calf = 182mmHg. Left posterior tibial artery = 117mmHg. Left dorsalis pedis artery = 110mmHg. Left digit = 58 mmHg. The left dorsalis pedis waveforms are triphasic. The left posterior tibial artery waveforms are biphasic. Right Segmental Pressures Right brachial= 177mmHg. Right low thigh = 46mmHg. Right calf = 110mmHg. Right posterior tibial artery = 21mmHg. Right dorsalis pedis artery = 39mmHg. The right dorsalis pedis waveforms are monophasic. The right posterior tibial artery waveforms are monophasic. Indices The right ankle brachial index by the dorsalis pedis is 0.22. The right ankle brachial index by the posterior tibial artery is 0.12. The left ankle brachial index by the dorsalis pedis is 0.62. The left ankle brachial index by the posterior tibial artery is 0.66. The left digital-brachial index is 0.33. VL/Lower Ext Art Exam w/o Exercis Interpretation Summary Monophasic Doppler waveforms are noted at ankle level on the right. Biphasic and triphasic Doppler waveforms are noted at ankle level on the left. Pulse-volume recordings appear diminished at all levels on the right, and at digital level on the left. The resting right ankle-brachial index is severely diminished. The resting left ankle- brachial index is moderately diminished. The right digital-brachial index was not determined. The left digital- brachial index is moderately to severely diminished. There is evidence of severe arterial occlusive disease in the right lower extremity, with evidence of arterial inflow disease. There is evidence of irmylycs-no-hjlrbc multi-segmental arterial occlusive disease in the left lower extremity. Ordering Physician: Rosalee Francisco Referring Physician: Celia Al DO Performed By: MONIQUE VASQUEZ T 03/07/252112 Date Antwan Adams MD CC: DPM Dr. Rosalee Francisco; Dr. Celia Al DO Date Dictated: 03/07/25908 Date Transcribed: 03/07/252112 Employee Benefits Administrator: Signed Normal [facility] Venous Duplex US - Dc [facility] 03-07-2025 Venous Duplex US - Dc [facility] Cardiovascular Services [address] [place] [address] Venous Duplex US - Dc Extrem 03/07/25 0914 MR#: [id number] Acct: [id number] Name: ROLANDO PETERS Rep #: [id number] : 1945 80 From: Antwan Adams MD Attending Dr: Dr. Rosalee Francisco DPM Status: RE G RCR Ordering Dr: Rosalee Francisco DPM Date: 03/07/25 Location: [facility] Sex: F C Admitted: Reason For Study Reason For Study: Edema, Foot Ulcer RIGHT LEFT CFV is compressible, spontaneous, phasic, competent CFV is compressible, spontaneous, phasic, competent, and demonstrates normal augmentation. and demonstrates normal augmentation. FV is compressible, spontaneous, phasic, competent FV is compressible, spontaneous, phasic, competent and demonstrates normal augmentation. and demonstrates normal augmentation. POP V is compressible, spontaneous, phasic, competent POP V is compressible, spontaneous, phasic, competent and demonstrates normal augmentation. and demonstrates normal augmentation. T/P Trunk is compressible. T/P Trunk is compressible. PTV is compressible. PTV is compressible. RT PerV is compressible. LT PerV is compressible. SFJ is INCOMPETENT and measures 0.52 cm. SFJ is competent and measures 0.69 cm. GSV proximal thigh measures 0.34x0.39 cm. GSV proximal thigh measures 0.22x0.18 cm. GSV at knee measures 0.22x0.20 cm. GSV at knee measures 0.17x0.16 cm. GSV is competent throughout. GSV is competent throughout. SSV mid calf is competent and measures 0.17x0.18 cm. SSV mid calf is competent and measures 0.15x0.18 cm. Procedure Exam performed in department. This is a venous duplex using B-mode, color flow and spectral Doppler. The exam was diagnostic. Patient was scanned in reverse Trendelenburg position during reflux assessment. VL/Venous Duplex US - Dc Extrem Interpretation Summary Deep veins of the lower extremities are bilaterally patent and compressible segmentally. There is no evidence of deep vein thrombosis on either side. Valvular competence appears intact within the proximal deep venous systems bilaterally. The great saphenous veins appear bilaterally patent and compressible segmentally. The right sapheno- femoral junction is incompetent . The left sapheno-femoral junction is competent . Valvular competence appears to be intact segmentally within the great saphenous veins bilaterally. Small saphenous veins are patent and competent bilaterally. Ordering Physician: Rosalee Francisco Referring Physician: Celia Al Performed By: Monique Vasquez RVT 03/07/252116 Date Antwan Adams MD CC: DPM Dr. Rosalee Francisco; Dr. Celia Al DO Date Dictated: 03/07/25913 Date Transcribed: 03/07/252116 Employee Benefits Administrator: Signed [address] 03-03-2025 36 Sent Fax to [place] signed surgical clearance to [phone] 03-02-2025 36 [facility] 03-02-2025 [facility] Telephone (AGOKelsy) ROLANDO PETERS ([id number]) 1945 F Date Time Provider Department 03/02/25 DOMINICK HUGGINSKelsy During your visit today, we recorded the following information about you: Dorita Leslie 03/02/2025 1:46 PM Signed Attempted to return patient's call regarding questions about her clearances for surgery. Patient did not answer. Left message with office phone number and my extension for a return call. Allergies As of Date: 03/02/2025 Noted Allergy Reaction ISOSULFAN BLUE 02/10/2012 10 - Anaphylaxis METHYLENE BLUE 09/01/2022 10 - Anaphylaxis ADHESIVE 07/18/2010 2 - Rash SULFA (SULFONAMIDE ANTIBIOTICS) 07/18/2010 2 - Rash Date Reviewed: 02/08/2025 Reviewed by: Mariela Sandoval MA - Fully Assessed Prescriptions as of 03/02/2025 - gabapentin (NEURONTIN) 100 mg capsule Take 1 capsule by mouth daily at bedtime for 30 days. - doxycycline (VIBRA-TABS) 100 mg tablet Take 1 tablet twice a day by oral route. - pantoprazole DR (PROTONIX) 40 mg tablet Take by mouth. - sertraline (ZOLOFT) 25 mg tablet Take 25 mg by mouth. - SPIRIVA RESPIMAT 2.5 mcg/actuation inhaler Inhale 2 puffs as instructed. - amLODIPine (NORVASC) 2.5 mg tablet Take 2.5 mg by mouth. - carvedilol (COREG) 12.5 mg tablet Take 12.5 mg by mouth. - apixaban (ELIQUIS) 5 mg tab(s) Take 5 mg by mouth. - furosemide (LASIX) 20 mg tablet Take 20 mg by mouth once daily. - albuterol HFA (PROVENTIL HFA, VENTOLIN HFA) 90 mcg/actuation inhaler albuterol sulfate HFA 90 mcg/actuation aerosol inhaler - cholecalciferol (VITAMIN D3) 50 mcg (2,000 unit) tablet Take 4,000 Units by mouth. - Clindamycin Phosphate (CLEOCIN T) 1 % lotion twice a day. Apply sparingly and massage in - cyclobenzaprine (FLEXERIL) 5 mg tablet Take 1 tablet (5 mg) by mouth as needed at bedtime for muscle spasms. - ezetimibe (ZETIA) 10 mg tablet Take 1 tablet (10 mg) by mouth in the morning. - KERENDIA 10 mg tablet Take 1 tablet by mouth every afternoon. - fluocinonide (LIDEX) 0.05 % external solution 1 (one) time each day. Apply to affected areas - icosapent ethyl (VASCEPA) 1 gram capsule TAKE 2 CAPSULES BY MOUTH 2 TIMES DAILY - ALOKTADUETO XR 2.5-1,000 mg XR tab Take 2 tablets by mouth every afternoon. - losartan (COZAAR) 100 mg tablet Take 1 tablet by mouth every afternoon. - metoprolol tartrate, short acting, (LOPRESSOR) 25 mg tablet 1 tablet with food Orally Twice a day - rosuvastatin (CRESTOR) 10 mg tablet Take 1 tablet by mouth every afternoon. Problem List As Of Date 03/02/2025 Noted Resolved Spinal stenosis of lumbar region with neurogeni*08/13/2023 Spinal stenosis of cervical region [M48.02] 02/15/2025 Encounter Status:Closed by DORITA LESLIE on 03/02/25 Normal [facility] History AND Physic latasha 03-01-2025 Wound Ctr History & Physical [facility] [address] [place] [address] H P Exam - Wound Care 03/01/25 1523 MR#: [id number] Acct: [id number] Name: ROLANDO PETERS Rep #: [id number] : 1945 80 From: Rosalee Francisco DPM PCP: Dr. Celia Al, DO Status:REG RCR Location: History of Present Illness Date of Service: 03/01/25 Chief Complaint: Full-thickness wound dorsal aspect first metatarsal phalangeal joint right foot History of Wound: Small full-thickness wound to the dorsal aspect of the first metatarsophalangeal joint right foot Progress of Wound: Patient is a 80-year-old female presenting to clinic today with a chief complaint of full-thickness wound to the dorsal aspect of the big toe joint of the right foot. Patient states that it is painful with touch and while at rest. She does have swelling in the right lower extremity when compared to the left. She was referred by her primary care doctor for continued treatment and care. Patient admits to finishing a course of Augmentin 875 twice daily for 7 days which was prescribed for 10 days due to diarrhea but has now improved. Treatment has been conservative at this time. She denies any debridement of the full-thickness wound. She denies trauma. Denies constitutional symptoms. No other pedal complaints at this time. [facility] Home Medications ???Medication ???Instructions ???Recorded ???Last Taken ???Type amlodipine 2.5 mg tablet 2.5 mg PO DAILY 03/01/25 Unknown H istory apixaban 5 mg tablet (Eliquis) 5 mg PO BID 03/01/25 Unknown Histo ry atovaquone 750 mg/5 mL oral 1,500 mg PO DAILY 03/01/25 Unknown History suspension blood sugar diagnostic (Contour 03/01/25 Unknown History Next Test Strips) cyclobenzaprine 5 mg tablet 5 mg PO QHS PRN PRN muscle spasm 0 03/01/25 Unknown History ezetimibe 10 mg tablet 10 mg PO DAILY 03/01/25 Unknown Hi story finerenone 10 mg tablet (Kerendia) 10 mg PO DAILY 03/01/25 Unknown History furosemide 20 mg tablet 20 mg PO QODAY 03/01/25 Unknown Hi story gabapentin 100 mg capsule 100 mg PO QHS 03/01/25 Unknown His tory icosapent ethyl 1 gram capsule 2 g PO BID 03/01/25 Unknown Histor y (Vascepa) linagliptin 2.5 mg-metformin ER tab PO 03/01/25 Unknown History 1,000 mg tablet,extended release 24 hr (Jentadueto XR) mupirocin 2 % topical ointment topical TID 03/01/25 Unknown Histo ry pantoprazole 40 mg tablet,delayed 40 mg PO 03/01/25 Unknown History release rosuvastatin 10 mg tablet 10 mg PO DAILY 03/01/25 Unknown Hi story tiotropium bromide 2.5 2 puff inhalation DAILY 03/01/25 U nknown History mcg/actuation mist for inhalation (Spiriva Respimat) Allergy/AdvReac Type Severity Reaction Status Date / Time blue dye Allergy Severe Anaphylaxis Verified 03/01/25 14:22 Sulfa (Sulfonamide Allergy Rash Verified 03/01/25 14:22 Antibiotics) Social History Smoking Status: Never smoker Vital Signs Vital Signs Vital Signs: 03/01/25 13:36 Temperature 97.6 F L Temperature Source Temporal Pulse Rate 79 Respiratory Rate 18 Blood Pressure 125/62 H Blood Pressure Mean 83 Blood Pressure Source Monitor Blood Pressure Position Sitting Blood Pressure Location Left Arm Oxygen Delivery Method Room Air Weight Weight: 59.421 kg Body Mass Index (BMI) 20.5 Physical Exam Narrative Vascular: DP and PT pulses are faintly palpable to the right lower extremity. CFT is delayed. Nonpitting edema appreciated to the right lower extremity when compared to the left. No evidence of hemosiderin deposits are appreciated. Neurological: Light touch is intact. Patient does respond to painful stimuli. Dermatological: Full-thickness wound to the dorsal aspect of the first metatarsal phalangeal joint right foot measuring 0.2 x 0.3 x 0.1 cm. Wound base is granular with no sign of infection. Erythema is blanchable as well as dependent. Excisional debridement down to including subcutaneous tissue with a number 1 mm dermal curette to the full-thickness wound dorsal aspect first metatarsophalangeal joint right foot without incident. Predebridement with sanguinous crust. Postdebridement measurement 0.2 x 0.3 x 0.1 cm. Musculoskeletal: Mild pain to palpation of the full-thickness wound right foot. No pain with calf pressure. Debridement Note Debridement Note Debridement Free Text: Excisional debridement down to including subcutaneous tissue with a number 1 mm dermal curette to the full-thickness wound dorsal aspect first metatarsophalangeal joint right foot without incident. Predebridement with sanguinous crust. Postdebridement measurement 0.2 x 0.3 x 0.1 cm. Post-Debridement Measurements and Additional Note: Post-Debridement Measurements/Treatment (more content not included)... [facility] 02-28-2025 [facility] Letter Text Letter Text Letter Text [facility] 36 02-23-2025 36 I called and spoke nilesh Murray relaying note from Dr Jerome. She verbalized understanding; she plans to give us updates on her blood work when drawn and if she gains new information from Noe. She was thankful for the call back. [facility] 36 [facility] 36 [place] [address]on 02-22-2025 36 I did call her back at 2:22 and she did not picker machine operator; I left a message asking her to call back; tried again a couple minutes later and she did not picker machine operator. Will await call back/try again tomorrow. [facility] 36 Pt left a voice mail returning Brianas call. Please call pt [facility] 36 Primary number disconnected; called mobile and LMOM asking pt to please call the office back as Dr Jerome had some questions/to discuss her blood counts/if follwing with GI or PCP. [facility] CNTHERAPYon 02-22-2025 CNTHERAPY OT/PT/Speech Visit (PTWS) ROLANDO PETERS ([id number]) 1945 F Date Time Provider Department 02/22/25 10:30 AM HALEY DEAN Date Time Provider Department Center 02/22/2025 10:30 AM [id number]-THALEY DEAN PTLILI Howlel Reason for Visit: Physical Therapy [503] Primary Visit Diagnosis:Spinal stenosis of cervical region [M48.02] Allergies As of Date: 02/22/2025 Noted Allergy Reaction ISOSULFAN BLUE 02/10/2012 10 - Anaphylaxis METHYLENE BLUE 09/01/2022 10 - Anaphylaxis ADHESIVE 07/18/2010 2 - Rash SULFA (SULFONAMIDE ANTIBIOTICS) 07/18/2010 2 - Rash Date Reviewed: 02/08/2025 Reviewed by: Mariela Sandoval MA - Fully Assessed Prescriptions as of 02/22/2025 - gabapentin (NEURONTIN) 100 mg capsule Take 1 capsule by mouth daily at bedtime for 30 days. - doxycycline (VIBRA-TABS) 100 mg tablet Take 1 tablet twice a day by oral route. - pantoprazole DR (PROTONIX) 40 mg tablet Take by mouth. - sertraline (ZOLOFT) 25 mg tablet Take 25 mg by mouth. - SPIRIVA RESPIMAT 2.5 mcg/actuation inhaler Inhale 2 puffs as instructed. - amLODIPine (NORVASC) 2.5 mg tablet Take 2.5 mg by mouth. - carvedilol (COREG) 12.5 mg tablet Take 12.5 mg by mouth. - apixaban (ELIQUIS) 5 mg tab(s) Take 5 mg by mouth. - furosemide (LASIX) 20 mg tablet Take 20 mg by mouth once daily. - albuterol HFA (PROVENTIL HFA, VENTOLIN HFA) 90 mcg/actuation inhaler albuterol sulfate HFA 90 mcg/actuation aerosol inhaler - cholecalciferol (VITAMIN D3) 50 mcg (2,000 unit) tablet Take 4,000 Units by mouth. - Clindamycin Phosphate (CLEOCIN T) 1 % lotion twice a day. Apply sparingly and massage in - cyclobenzaprine (FLEXERIL) 5 mg tablet Take 1 tablet (5 mg) by mouth as needed at bedtime for muscle spasms. - ezetimibe (ZETIA) 10 mg tablet Take 1 tablet (10 mg) by mouth in the morning. - KERENDIA 10 mg tablet Take 1 tablet by mouth every afternoon. - fluocinonide (LIDEX) 0.05 % external solution 1 (one) time each day. Apply to affected areas - icosapent ethyl (VASCEPA) 1 gram capsule TAKE 2 CAPSULES BY MOUTH 2 TIMES DAILY - JENTADUETO XR 2.5-1,000 mg XR tab Take 2 tablets by mouth every afternoon. - losartan (COZAAR) 100 mg tablet Take 1 tablet by mouth every afternoon. - metoprolol tartrate, short acting, (LOPRESSOR) 25 mg tablet 1 tablet with food Orally Twice a day - rosuvastatin (CRESTOR) 10 mg tablet Take 1 tablet by mouth every afternoon. Normal [facility] 36on 02-21-2025 36 Normal [facility] CBC (INCLUDES DIFF/PLT)on Basophils (Bld) [#/Vol] 0.071 10*3/uL Normal 0-200 [facility] Comment on above: Order Comment: FASTI NG:NOFASTING: NO Performed By: #### 6 680, 05060 #### [facility], [address] [place] [id number] Nut Feeder: Zeke Waldron MD Basophils/100 WBC (Bld) 1.5 % Normal [facility] Comment on above: Order Comment: FASTI NG:NOFASTING: NO Performed By: #### 6 055, 41648 #### [facility] [place] [address] Nut Feeder: Zeke Waldron MD Eosinophils (Bld) [#/Vol] 0.132 10*3/uL Normal 15-500 [facility] Comment on above: Order Comment: FASTI NG:NOFASTING: NO Performed By: #### 6 399, 98214 #### [facility] [place] [address] Nut Feeder: Zeke Waldron MD Eosinophils/100 WBC (Bld) 2.8 % Normal [facility] Comment on above: Order Comment: FASTI NG:NOFASTING: NO Performed By: #### 6 399, 55881 #### [facility] [place] [address] Nut Feeder: Zeke Waldron MD Erythrocyte distribution width (RBC) [Ratio] 15.0 % Normal 11.0-15.0 [facility] Comment on above: Order Comment: FASTI NG:NOFASTING: NO Performed By: #### 6 399, 14740 #### [facility] [place] [address] Nut Feeder: Zeke Waldron MD Hematocrit (Bld) [Volume fraction] 26.4 % Low 35.0-45.0 [facility] Comment on above: Order Comment: FASTI NG:NOFASTING: NO Performed By: #### 6 399, 98329 #### [facility] [place] [address] Nut Feeder: Zeke Waldron MD Hemoglobin (Bld) [Mass/Vol] 7.8 g/dL Low 11.7-15.5 [facility] Comment on above: Order Comment: FASTI NG:NOFASTING: NO Performed By: #### 6 399, 21234 #### [facility] [place] [address] Nut Feeder: Zeke Waldron MD Lymphocytes (Bld) [#/Vol] 0.996 10*3/uL Normal 850-3900 [facility] Comment on above: Order Comment: FASTI NG:NOFASTING: NO Performed By: #### 6 399, 33324 #### [facility] [address], [address] [place] [address] Nut Feeder: Zeke Waldron MD Lymphocytes/100 WBC (Bld) 21.2 % Normal [facility] Comment on above: Order Comment: FASTI NG:NOFASTING: NO Performed By: #### 6 399, 68536 #### [facility] [address], [address] [place] [address] Nut Feeder: Zeke Waldron MD MCH (RBC) [Entitic mass] 25.7 pg Low 27.0-33.0 [facility] Comment on above: Order Comment: FASTI NG:NOFASTING: NO Performed By: #### 6 399, 09447 #### [facility] [place] [address] Nut Feeder: Zeke Waldron MD MCHC (RBC) [Mass/Vol] 29.5 g/dL Low 32.0-36.[address] [facility] Comment on above: Order Comment: FASTI NG:NOFASTING: NO Result Comment: For adults, a slight decrease in the calculated MCHC value (in the range of 30 to 32 g/dL) is most likely not clinically significant; however, it should be interpreted with caution in correlation with other red cell parameters and the patient's clinical condition. Performed By: #### 6 399, 89534 #### [facility] [address], [address] [place] [address] Nut Feeder: Zeke Waldron MD MCV (RBC) [Entitic vol] 86.8 fL Normal 80.0-100.0 [facility] Comment on above: Order Comment: FASTI NG:NOFASTING: NO Performed By: #### 6 399, 50367 #### [facility] [place] [address] Nut Feeder: Zeke Waldron MD Monocytes (Bld) [#/Vol] 0.531 10*3/uL Normal 200-950 [facility] Comment on above: Order Comment: FASTI NG:NOFASTING: NO Performed By: #### 6 399, 14015 #### [facility] [address], [address] [place] [address] Nut Feeder: Zeke Waldron MD Monocytes/100 WBC (Bld) 11.3 % Normal [facility] Comment on above: Order Comment: FASTI NG:NOFASTING: NO Performed By: #### 6 399, 65908 #### [facility] [place] [address] Nut Feeder: Zeke Waldron MD Neutrophils (Bld) [#/Vol] 2.97 10*3/uL Normal 7061-7890 [facility] Comment on above: Order Comment: FASTI NG:NOFASTING: NO Performed By: #### 6 399, 38842 #### [facility] [place] [address] Nut Feeder: Zeke Waldron MD Neutrophils/100 WBC (Bld) 63.2 % Normal [facility] Comment on above: Order Comment: FASTI NG:NOFASTING: NO Performed By: #### 6 399, 82522 #### [facility] [place] [address] Nut Feeder: Zeke Waldron MD Platelet mean volume (Bld) [Entitic vol] 9.9 fL Normal 7.5-12.5 [facility] Comment on above: Order Comment: FASTI NG:NOFASTING: NO Performed By: #### 6 399, 10091 #### [facility] [place] [address] Nut Feeder: Zeke Waldron MD Platelets (Bld) [#/Vol] 290 10*3/uL Normal 140-400 [facility] Comment on above: Order Comment: FASTI NG:NOFASTING: NO Performed By: #### 6 399, 74767 #### [facility] of [place] [address] Nut Feeder: Zeke Waldron MD RBC (Bld) [#/Vol] 3.04 10*6/uL Low 3.80-5.10 [facility] Comment on above: Order Comment: FASTI NG:NOFASTING: NO Performed By: #### 6 399, 12413 #### [facility] [place] [address] Nut Feeder: Zeke Waldron MD WBC (Bld) [#/Vol] 4.7 10*3/uL Normal 3.8-10.8 [facility] Comment on above: Order Comment: FASTI NG:NOFASTING: NO Performed By: #### 6 399, 82906 #### [facility] [place] [address] Nut Feeder: Zeke Waldron MD CBC (INCLUDES DIFF/PLT)on Basophils (Bld) [#/Vol] 0.089 10*3/uL Normal 0-200 [facility] Comment on above: Performed By: #### 6 399, 19763 #### [facility] [place] [address] Nut Feeder: Zeke Waldron MD Basophils/100 WBC (Bld) 1.5 % Normal [facility] Comment on above: Performed By: #### 6 399, 83701 #### [facility] [place] [address] Nut Feeder: Zeke Waldron MD Eosinophils (Bld) [#/Vol] 0.077 10*3/uL Normal 15-500 [facility] Comment on above: Performed By: #### 6 399, 64336 #### [facility] [place] [address] Nut Feeder: Zeke Waldron MD Eosinophils/100 WBC (Bld) 1.3 % Normal [facility] Comment on above: Performed By: #### 6 399, 25523 #### [facility] of [address], [address] [place] [address] Nut Feeder: Zeke Waldron MD Erythrocyte distribution width (RBC) [Ratio] 15.3 % High 11.0-15.0 [facility] Comment on above: Performed By: #### 6 399, 78412 #### [facility] of [address], [address] [place] [address] Nut Feeder: Zeke Waldron MD Hematocrit (Bld) [Volume fraction] 25.3 % Low 35.0-45.0 [facility] Comment on above: Performed By: #### 6 399, 72369 #### [facility] of [address], [address] [place] [address] Nut Feeder: Zeke Waldron MD Hemoglobin (Bld) [Mass/Vol] 7.7 g/dL Low 11.7-15.5 [facility] Comment on above: Performed By: #### 6 399, 88942 #### [facility] of [address], [address] [place] [address] Nut Feeder: Zeke Waldron MD Lymphocytes (Bld) [#/Vol] 0.997 10*3/uL Normal 850-3900 [facility] Comment on above: Performed By: #### 6 399, 04597 #### [facility] of [address], [address] [place] [address] Nut Feeder: Zeke Waldron MD Lymphocytes/100 WBC (Bld) 16.9 % Normal [facility] Comment on above: Performed By: #### 6 399, 79471 #### [facility] of [address], [address] [place] [address] Nut Feeder: Zeke Waldron MD MCH (RBC) [Entitic mass] 26.6 pg Low 27.0-33.0 [facility] Comment on above: Performed By: #### 6 399, 12438 #### [facility] of [place] [address] Nut Feeder: Zeke Waldron MD MCHC (RBC) [Mass/Vol] 30.4 g/dL Low 32.0-36.[address] [facility] Comment on above: Result Comment: For adults, a slight decrease in the calculated MCHC value (in the range of 30 to 32 g/dL) is most likely not clinically significant; however, it should be interpreted with caution in correlation with other red cell parameters and the patient's clinical condition. Performed By: #### 6 399, 51076 #### [facility] of [place] [address] Nut Feeder: Zeke Waldron MD MCV (RBC) [Entitic vol] 87.2 fL Normal 80.0-100.0 [facility] Comment on above: Performed By: #### 6 399, 81615 #### [facility] [place] [address] Nut Feeder: Zeke Waldron MD Monocytes (Bld) [#/Vol] 0.478 10*3/uL Normal 200-950 [facility] Comment on above: Performed By: #### 6 399, 73295 #### [facility] [place] [address] Nut Feeder: Zeke Waldron MD Monocytes/100 WBC (Bld) 8.1 % Normal [facility] Comment on above: Performed By: #### 6 399, 93125 #### [facility] [place] [address] Nut Feeder: Zeke Waldron MD Neutrophils (Bld) [#/Vol] 4.26 10*3/uL Normal 9906-7179 [facility] Comment on above: Performed By: #### 6 399, 90769 #### [facility] [place] [address] Nut Feeder: Zeke Waldron MD Neutrophils/100 WBC (Bld) 72.2 % Normal [facility] Comment on above: Performed By: #### 6 399, 64637 #### [facility] [address] [place] [address] Nut Feeder: Zeke Waldron MD Platelet mean volume (Bld) [Entitic vol] 9.6 fL Normal 7.5-12.5 [facility] Comment on above: Performed By: #### 6 399, 03573 #### [facility] of [address], [address] [place] [address] Nut Feeder: Zeke Waldron MD Platelets (Bld) [#/Vol] 304 10*3/uL Normal 140-400 [facility] Comment on above: Performed By: #### 6 399, 63643 #### [facility] of [address], [address] [place] [address] Nut Feeder: Zeke Waldron MD RBC (Bld) [#/Vol] 2.90 10*6/uL Low 3.80-5.10 [facility] Comment on above: Performed By: #### 6 399, 48271 #### [facility] of [address], [address] [place] [address] Nut Feeder: Zeke Waldron MD WBC (Bld) [#/Vol] 5.9 10*3/uL Normal 3.8-10.8 [facility] Comment on above: Performed By: #### 6 399, 97265 #### [facility] of [address], [address] [place] [address] Nut Feeder: Zeke Waldron MD [id number] 02-15-2025 [id number] O ID: [id number] Author: HALEY DEAN PT Service: ? Author Type: Physical Therapist Type: [id number] Filed: 02/15/2025 11:51 Note Text: [facility] Physical Therapy Plan of Care Certification Patient Name: Rolando Peters : 1945 [facility] #: [id number] Date: 02/15/2025 To: Dominick Huggins MD From Therapist: Haley Dean PT RE: Patient Certification/ Recertification Your review, approval and electronic signature are required in order to comply with Payor: [employer] / Plan: [place] MEDICARE / Product Type: HMO / regulations. 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 The patient presents with impairments in ADL's, balance, gait, independence in exercise, joint mobility, overall function, patient reported outcome measures, posture, range of motion, strength, and symptom management. PROMIS? (Patient-Reported Outcomes Measurement Information System) scores were reviewed and identified as a rehabilitation concern. Prognosis for therapy is Fair due to: limited tolerance to activity, multiple co- morbidities, clinical presentation, chronic nature of impairments, advanced age . The patient will benefit from skilled therapy services to meet the goals established for this plan of care as noted below. Classification Pain Mechanism Classification: Nociceptive Low Back Pain Classification: Symptom Modulation Goals for Episode of Care: established 02/15/25 Independent in home exercises. Patient will decrease pain to 1-2/10 with functional activities to allow patient to improve standing tolerance for ADLs. Restore pain-free lumbar ROM to minimal to no limitation extension to allow for standing and walking with improved posture without limitation due to symptoms. Stand / Walk 10 minutes or greater without pain/symptoms. Sleep through night without pain/symptoms. Restore pain free cervical ROM active side bending R and L to minimal to no limitation without increased pain/tightness to allow for reduced pain. Patient Goals: reduce RLE and R LBP Time Frame for Goals and Treatment : 03/29/25 Planned Interventions, Frequency, and Duration: Current Frequency: 1x/week Duration: 6 weeks Total Number of Visits Planned: 6 Planned Treatment Interventions: Gait Training (05050), Self-senior living management (08601), Therapeutic activities (64566), Manual therapy (31018), Neuromuscular re-education (92049), Therapeutic exercise (31134) PLAN FOR NEXT VISIT: assess symptoms response to HEP Patient demonstrates good understanding of plan of care and treatment. The above goals and plan of care were discussed and agreed upon by patient/family. For further details regarding this patient refer to the Physical Therapy electronically documented visit dated 02/15/2025. Provider Attestation I have reviewed the treatment plan for Rolando Peters, [facility]# [id number] for the period of 02/15/25 -- 03/29/25, established on 02/15/2025. Signature certifies the need for therapy services. [facility] CNTHERAPYon 02-15-2025 CNTHERAPY OT/PT/Speech Visit (PTWS) LORRAINEROLANDO Kelsy ([id number]) 1945 F Date Time Provider Department 02/15/25 11:15 AM HALEY DEAN Date Time Provider Department Center 02/15/2025 11:15 AM [id number] DEAN Reason for Visit: PT Eval [747] Primary Visit Diagnosis:Spinal stenosis of lumbar region with neurogenic claudication [M48.062] Other Visit Diagnosis:Spinal stenosis of cervical region [M48.02] Allergies As of Date: 02/15/2025 Noted Allergy Reaction ISOSULFAN BLUE 02/10/2012 10 - Anaphylaxis METHYLENE BLUE 09/01/2022 10 - Anaphylaxis ADHESIVE 07/18/2010 2 - Rash SULFA (SULFONAMIDE ANTIBIOTICS) 07/18/2010 2 - Rash Date Reviewed: 02/08/2025 Reviewed by: Mariela Sandoval MA - Fully Assessed Prescriptions as of 02/15/2025 - gabapentin (NEURONTIN) 100 mg capsule Take 1 capsule by mouth daily at bedtime for 30 days. - doxycycline (VIBRA-TABS) 100 mg tablet Take 1 tablet twice a day by oral route. - pantoprazole DR (PROTONIX) 40 mg tablet Take by mouth. - sertraline (ZOLOFT) 25 mg tablet Take 25 mg by mouth. - SPIRIVA RESPIMAT 2.5 mcg/actuation inhaler Inhale 2 puffs as instructed. - amLODIPine (NORVASC) 2.5 mg tablet Take 2.5 mg by mouth. - carvedilol (COREG) 12.5 mg tablet Take 12.5 mg by mouth. - apixaban (ELIQUIS) 5 mg tab(s) Take 5 mg by mouth. - furosemide (LASIX) 20 mg tablet Take 20 mg by mouth once daily. - albuterol HFA (PROVENTIL HFA, VENTOLIN HFA) 90 mcg/actuation inhaler albuterol sulfate HFA 90 mcg/actuation aerosol inhaler - cholecalciferol (VITAMIN D3) 50 mcg (2,000 unit) tablet Take 4,000 Units by mouth. - Clindamycin Phosphate (CLEOCIN T) 1 % lotion twice a day. Apply sparingly and massage in - cyclobenzaprine (FLEXERIL) 5 mg tablet Take 1 tablet (5 mg) by mouth as needed at bedtime for muscle spasms. - ezetimibe (ZETIA) 10 mg tablet Take 1 tablet (10 mg) by mouth in the morning. - KERENDIA 10 mg tablet Take 1 tablet by mouth every afternoon. - fluocinonide (LIDEX) 0.05 % external solution 1 (one) time each day. Apply to affected areas - icosapent ethyl (VASCEPA) 1 gram capsule TAKE 2 CAPSULES BY MOUTH 2 TIMES DAILY - JENTADUETO XR 2.5-1,000 mg XR tab Take 2 tablets by mouth every afternoon. - losartan (COZAAR) 100 mg tablet Take 1 tablet by mouth every afternoon. - metoprolol tartrate, short acting, (LOPRESSOR) 25 mg tablet 1 tablet with food Orally Twice a day - rosuvastatin (CRESTOR) 10 mg tablet Take 1 tablet by mouth every afternoon. Veterans' Coordinator: Therapy (PT/OT/Speech/Resp) ID: [id number] 02/15/2025 11:38 AM Author: HALEY DEAN Signed by HALEY DEAN PT on 02/15/2025 at 11:38 AM Document text: Program_ID:[id number] Access Code: [email or web address] URL: [email or web address]/ Date: 02-15-2025 Prepared By: Haley Dean Program Notes Exercises - Seated Lumbar Flexion Stretch - 3 x daily - 7 x weekly - 2-3 sets - 10 reps - Seated Transversus Abdominis Bracing - 3 x daily - 7 x weekly - 2 sets - 10 reps - Seated Gentle Upper Trapezius Stretch - 3 x daily - 7 x weekly - 1 sets - 3 reps [facility] THERAPY NTon 02-15-2025 THERAPY NT HNO ID: [id number] Author: HALEY DEAN PT Service: ? Author Type: Physical Therapist Type: Therapy (PT/OT/Speech/Resp) Filed: 02/15/2025 11:38 Note Text: Program_ID:[id number] Access Code: [email or web address] URL: [email or web address]/ Date: 02-15-2025 Prepared By: Haley Dean Program Notes Exercises - Seated Lumbar Flexion Stretch - 3 x daily - 7 x weekly - 2-3 sets - 10 reps - Seated Transversus Abdominis Bracing - 3 x daily - 7 x weekly - 2 sets - 10 reps - Seated Gentle Upper Trapezius Stretch - 3 x daily - 7 x weekly - 1 sets - 3 reps [facility] ROLANDO PETERS ([id number]) 1945 F Date Time Provider Department 02/14/25 [facility] your visit today, we recorded the following information about you: Darrion Nevarez RN 02/14/2025 11:00 AM Signed Patient is scheduled for cervical surgery with Dr. Huggins on 03/30/2025 and then lumbar surgery on 05/25/2025. I called and spoke to patient, returning her call. She was complaining of right flannery to foot pain with numbness as well as to calf area. She noted taking tylenol 1000mg tid and flexeril 5mg daily or bid. She was wondering if she can be prescribed something else to help with her symptoms. Discussed with Nai Esquivel APRN. CNP, and recommended to participate in physical therapy for her neck and low back as well as Gabapentin 100 mg at . I called and spoke to patient, updated her on the above recommendations. She verbalized understanding and was greatly appreciative. She asked for prescription to be sent to [facility] in [place] on [address]. Patient will call office with any questions or concerns. AYO Schroeder Jaclyn M, RN 02/14/2025 11:01 AM Signed Addended by: DARRION NEVAREZ on: 02/14/2025 11:01 AM Modules accepted: Orders Allergies As of Date: 02/14/2025 Noted Allergy Reaction ISOSULFAN BLUE 02/10/2012 10 - Anaphylaxis METHYLENE BLUE 09/01/2022 10 - Anaphylaxis ADHESIVE 07/18/2010 2 - Rash SULFA (SULFONAMIDE ANTIBIOTICS) 07/18/2010 2 - Rash Date Reviewed: 02/08/2025 Reviewed by: Mariela Sandoval MA - Fully Assessed Reason for Visit: Returning Patient's Call [408] Primary Visit Diagnosis:Spinal stenosis of cervical region [M48.02] Other Visit Diagnosis:Spinal stenosis of lumbar region with neurogenic claudication [M48.062] Order(s):CONSULT TO PHYSICAL THERAPY [9032] Order #: [id number]: 1 FUTURE Prescriptions as of 02/14/2025 - doxycycline (VIBRA-TABS) 100 mg tablet Take 1 tablet twice a day by oral route. - pantoprazole DR (PROTONIX) 40 mg tablet Take by mouth. - sertraline (ZOLOFT) 25 mg tablet Take 25 mg by mouth. - SPIRIVA RESPIMAT 2.5 mcg/actuation inhaler Inhale 2 puffs as instructed. - amLODIPine (NORVASC) 2.5 mg tablet Take 2.5 mg by mouth. - carvedilol (COREG) 12.5 mg tablet Take 12.5 mg by mouth. - apixaban (ELIQUIS) 5 mg tab(s) Take 5 mg by mouth. - furosemide (LASIX) 20 mg tablet Take 20 mg by mouth once daily. - albuterol HFA (PROVENTIL HFA, VENTOLIN HFA) 90 mcg/actuation inhaler albuterol sulfate HFA 90 mcg/actuation aerosol inhaler - cholecalciferol (VITAMIN D3) 50 mcg (2,000 unit) tablet Take 4,000 Units by mouth. - Clindamycin Phosphate (CLEOCIN T) 1 % lotion twice a day. Apply sparingly and massage in - cyclobenzaprine (FLEXERIL) 5 mg tablet Take 1 tablet (5 mg) by mouth as needed at bedtime for muscle spasms. - ezetimibe (ZETIA) 10 mg tablet Take 1 tablet (10 mg) by mouth in the morning. - KERENDIA 10 mg tablet Take 1 tablet by mouth every afternoon. - fluocinonide (LIDEX) 0.05 % external solution 1 (one) time each day. Apply to affected areas - icosapent ethyl (VASCEPA) 1 gram capsule TAKE 2 CAPSULES BY MOUTH 2 TIMES DAILY - JENTADUETO XR 2.5-1,000 mg XR tab Take 2 tablets by mouth every afternoon. - losartan (COZAAR) 100 mg tablet Take 1 tablet by mouth every afternoon. - metoprolol tartrate, short acting, (LOPRESSOR) 25 mg tablet 1 tablet with food Orally Twice a day - rosuvastatin (CRESTOR) 10 mg tablet Take 1 tablet by mouth every afternoon. Problem List As Of Date 02/14/2025 Noted Resolved Lumbar stenosis with neurogenic claudication [M*08/13/2023 Encounter Status:Closed by DARRION NEVAREZ on 02/14/25 [facility] CNPN Telephone (AGOR) LORRAINEROLANDO ([id number]) 1945 F Date Time Provider Department 02/14/25 DOMINICK HUGGINS During your visit today, we recorded the following information about you: Mick Reich [place] 02/14/2025 10:26 AM Signed Called and spoke with patient regarding surgery details. All questions were addressed. Allergies As of Date: 02/14/2025 Noted Allergy Reaction ISOSULFAN BLUE 02/10/2012 10 - Anaphylaxis METHYLENE BLUE 09/01/2022 10 - Anaphylaxis ADHESIVE 07/18/2010 2 - Rash SULFA (SULFONAMIDE ANTIBIOTICS) 07/18/2010 2 - Rash Date Reviewed: 02/08/2025 Reviewed by: Mariela Sanodval MA - Fully Assessed Reason for Visit: Preparations For Surgery [898] Prescriptions as of 02/14/2025 - doxycycline (VIBRA-TABS) 100 mg tablet Take 1 tablet twice a day by oral route. - pantoprazole DR (PROTONIX) 40 mg tablet Take by mouth. - sertraline (ZOLOFT) 25 mg tablet Take 25 mg by mouth. - SPIRIVA RESPIMAT 2.5 mcg/actuation inhaler Inhale 2 puffs as instructed. - amLODIPine (NORVASC) 2.5 mg tablet Take 2.5 mg by mouth. - carvedilol (COREG) 12.5 mg tablet Take 12.5 mg by mouth. - apixaban (ELIQUIS) 5 mg tab(s) Take 5 mg by mouth. - furosemide (LASIX) 20 mg tablet Take 20 mg by mouth once daily. - albuterol HFA (PROVENTIL HFA, VENTOLIN HFA) 90 mcg/actuation inhaler albuterol sulfate HFA 90 mcg/actuation aerosol inhaler - cholecalciferol (VITAMIN D3) 50 mcg (2,000 unit) tablet Take 4,000 Units by mouth. - Clindamycin Phosphate (CLEOCIN T) 1 % lotion twice a day. Apply sparingly and massage in - cyclobenzaprine (FLEXERIL) 5 mg tablet Take 1 tablet (5 mg) by mouth as needed at bedtime for muscle spasms. - ezetimibe (ZETIA) 10 mg tablet Take 1 tablet (10 mg) by mouth in the morning. - KERENDIA 10 mg tablet Take 1 tablet by mouth every afternoon. - fluocinonide (LIDEX) 0.05 % external solution 1 (one) time each day. Apply to affected areas - icosapent ethyl (VASCEPA) 1 gram capsule TAKE 2 CAPSULES BY MOUTH 2 TIMES DAILY - JENTADUETO XR 2.5-1,000 mg XR tab Take 2 tablets by mouth every afternoon. - losartan (COZAAR) 100 mg tablet Take 1 tablet by mouth every afternoon. - metoprolol tartrate, short acting, (LOPRESSOR) 25 mg tablet 1 tablet with food Orally Twice a day - rosuvastatin (CRESTOR) 10 mg tablet Take 1 tablet by mouth every afternoon. Problem List As Of Date 02/14/2025 Noted Resolved Lumbar stenosis with neurogenic claudication [M*08/13/2023 Encounter Status:Closed by MICK REICH on 02/14/25 [facility] 02-08-2025 [facility] Office Visit (AGOR ) ROLANDO PETERS ([id number]) 1945 F Date Time Provider Department 02/08/25 10:45 AM [facility] During your visit today, we recorded the following information about you: Pulse Blood pressure Weight Height 67/minute 152/70 61.2 kg 1.702 Dominick Hernandez MD 02/08/2025 11:10 AM Signed SPINE SURGERY ESTABLISHED PATIENT DATE OF SERVICE: 02/08/2025 Patient Name: Ms.Marie Kelsy Peters Date of : 1945 Current Age: [age] year old Sex: female Subjective Chief Complaint: History of Present Illness: Ms.Marie Kelsy Peters has a past medical history of diabetes mellitus type 2, INGA, HTN, HLD, bilateral malignant neoplasm of breast status post right-sided mastectomy in 1993 and left-sided mastectomy in 2010. Patient was last seen in the office on 01/18/2025 and reported 2-3 year history of back pain that had been gradually worsening. She was previously advised to consider a L3-5 decompression in August of last year, but deferred due to lung issues, including lung nodules, which had improved. Her back pain occasionally radiated to right gluteal region that extended down the entire RLE and foot with paresthesia in both feet right > left. She experienced urinary urgency, denied saddle anesthesia. Additionally, she complained of right-sided neck pain that radiated to shoulder with occasional tingling down anterior aspect of arms into her hands right > left. Endorsed worsening dexterity and balance issues, utilized a cane for a few months. Denied falls. On exam, she had 3/5 weakness in right DF/EHL, 4/5 right PF and ambulated with a cane. I recommended for patient to follow-up after obtaining MRIs of cervical and lumbar spine, prompting visit today. Rolando Peters is a 80-year-old female with a history of chronic back pain, presenting for follow-up on MRI results of the cervical and lumbar spine. She is accompanied by her sister, who is a nurse and provides additional history. Rolando was last evaluated on 01/18, at which time she reported a 2-3 year history of back pain that had been gradually worsening. The pain started in her lower back and radiated into her right gluteal region and down the entire right leg, accompanied by numbness and tingling in both feet, with the right side being worse than the left. She also described urinary urgency at that time and denied any saddle anesthesia. Additionally, she noted right-sided neck pain radiating into her shoulder, with occasional tingling down the anterior aspect of her arms into her hands, right side worse than left. She reported issues with dexterity and balance and had been using a cane for the past few months. MRI of the cervical and lumbar spine was ordered, and she was advised to follow up. Since her last visit, Rolando reports that her symptoms have remained about the same, with a slight increase in weakness in the right lower extremity. She is also dealing with a recent right foot infection, for which she was started on doxycycline after completing a course of Keflex that did not clear the infection. She had one episode of fecal incontinence since her last visit and still denies any saddle anesthesia, but she was unaware of the bowel movement at the time. Her A1c was 6.0 a couple of weeks ago. She is on Eliquis BID and is not a smoker. She has not undergone any recent physical therapy or pain management but has been on some oral medications. Rolando has a history of atrial fibrillation and COPD. She mentions that her back pain has been ongoing for several years and has progressively worsened, affecting her ability to walk with her grandchildren. She is considering surgical options for her neck and lower back but is concerned about the recovery period and potential complications. She is also planning a move to [place] on Thursday and is seeking more information before making a decision. Patient's blood pressure elevated at office visit today. Denies chest pain, shortness of breath, headache, blurred vision, dizziness, or lightheadedness. Recommended patient to follow-up with PCP or go to Emergency Department if experiences these symptoms. Major Risk Factors Obesity normal BMI: 21.13 kg/m2 High: BMI > 40 Moderate: BMI 30-40 Normal: BMI < 30 Diabetes normal Last HbA1C: - 01/27/2025 High: A1C > 8 Moderate: A1C 7-8 Normal: A1C < 7 Hx of DVT / PE normal High: dx of DVT / PE Normal: no dx of DVT / PE Smoking normal Last Status: Never High: Current smoker Normal: Non smoker Narcotics Use normal High:NarxCare >=300 Moderate: 100-299 Normal: 0-99 Depression High Risk High: PHQ-9 >14 Moderate: PHQ-9 5-14 Normal: PHQ-9 < 5 Data from [facility] Epic on prior therapies: PREVIOUS CONSERVATIVE TREATMENT: -Medication: Flexeril, Prednisone (for 2-3 months for lungs and recently completed), Tylenol -Physical therapy: No recent p (more content not included)... [facility] XR CERV OTHER 4V AP/LAT/FLX/ EXTon 02-07-2025 IMPRESSION: No acute osseous abnormality. No subluxations. These refer to the recent MRI for further details. Employee Benefits Administrator: VALERIANO Transcribe Date/Time: Feb 07 2025 4:40P Dictated by : SHEILA TOBIAS MD This examination was interpreted and the report reviewed and electronically signed by: SHEILA TOBIAS MD on Feb 07 2025 4:41PM EST [facility] * * *Final Report* * * DATE OF EXAM: Feb 01 2025 3:01PM A1X 5310 - XR CERVICAL 4V AP/LAT/FLX/EXT / PROCEDURE REASON: Spinal stenosis of cervical region * * * * Physician Interpretation * * * * EXAMINATION: XR CERVICAL 4V AP/LAT/FLX/EXT HISTORY: chronic neck pain, right arm pain Spinal stenosis of cervical region . TECHNIQUE: XR CERVICAL 4V AP/LAT/FLX/EXT Laterality: NOT APPLICABLE Number of different views (projections): 4 M: XB_1 COMPARISON: MRI cervical spine done the same day RESULT: There are no subluxations on neutral, flexion or extension views. Moderate degenerative disc space narrowing C5-C6. No evidence of fracture. There is uncovertebral joint spur and facet arthritis. No other significant abnormality. [facility] Provider, [facility] - 02/07/2025 * * *Final Report* * * DATE OF EXAM: Feb 01 2025 3:01PM A1X 5310 - XR CERVICAL 4V AP/LAT/FLX/EXT / PROCEDURE REASON: Spinal stenosis of cervical region * * * * Physician Interpretation * * * * EXAMINATION: XR CERVICAL 4V AP/LAT/FLX/EXT HISTORY: chronic neck pain, right arm pain Spinal stenosis of cervical region . TECHNIQUE: XR CERVICAL 4V AP/LAT/FLX/EXT Laterality: NOT APPLICABLE Number of different views (projections): 4 M: XB_1 COMPARISON: MRI cervical spine done the same day RESULT: There are no subluxations on neutral, flexion or extension views. Moderate degenerative disc space narrowing C5-C6. No evidence of fracture. There is uncovertebral joint spur and facet arthritis. No other significant abnormality. IMPRESSION IMPRESSION: No acute osseous abnormality. No subluxations. These refer to the recent MRI for further details. [facility] Benefits Administrator[facility] Transcribe Date/Time: Feb 07 2025 4:40P Dictated by : SHEILA TOBIAS MD This examination was interpreted and the report reviewed and electronically signed by: SHEILA TOBIAS MD on Feb 07 2025 4:41PM [facility] XR CERV OTHER 4V AP/LAT/FLX/ EXTOrdered By: [facility] Provider on 02-07-2025 [facility] MRI CERVICAL SPINE WO IVCONo n 02-01-2025 MRI CERVICAL SPINE WO IVCON * * *Final Report* * * DATE OF EXAM: Feb 01 2025 3:21PM William Vázquez - MRI CERVICAL SPINE WO IVCON / PROCEDURE REASON: Spinal stenosis of cervical region * * * * Physician Interpretation * * * * EXAMINATION: MRI CERVICAL SPINE WO IVCON CLINICAL HISTORY: Spinal stenosis of cervical region , neck pain TECHNIQUE: Routine cervical spine MR protocol without gadolinium. MQ: [id number] COMPARISON: None. RESULT: Counting reference: Craniocervical junction. Anatomic Variants: None. Alignment: Minimal grade 1 anterolisthesis of C6 on C7 and C7 on T1. Cord: The visualized cord is within normal limits of signal intensity and morphology. Bone marrow signal/fracture: Presumed degenerative endplate changes at C5-C6. Early discitis is less likely. The cervical vertebral body heights are within normal limits. C2-C3: No significant disc herniation. Bilateral facet degenerative changes, right greater than left. Moderate right neural foraminal stenosis. No significant left neural foraminal stenosis. No significant spinal canal stenosis. C3-C4: Posterior disc osteophyte complex with bilateral facet degenerative changes, right greater than left. Moderate bilateral neural foraminal stenosis. No significant spinal canal stenosis. C4-C5: Posterior disc osteophyte complex with bilateral facet degenerative changes and uncovertebral hypertrophy. Severe left and moderate right neural foraminal stenosis. No significant spinal canal stenosis. C5-C6: Posterior disc osteophyte complex with bilateral facet degenerative changes and uncovertebral hypertrophy. Superimposed small right central disc herniation. Severe bilateral neural foraminal stenosis. Mild mass effect on the right aspect of the spinal cord with mild cord deformity. Mizf-jf-ejgbtylo spinal canal stenosis. C6-C7: Posterior disc osteophyte complex with bilateral facet degenerative changes and uncovertebral hypertrophy. Moderate bilateral neural foraminal stenosis. No significant spinal canal stenosis. C7-T1: Mild posterior disc osteophyte complex. Mild bilateral neural foraminal stenosis. No significant spinal canal stenosis. IMPRESSION: Multilevel degenerative changes of cervical spine, most significant at C5-C6, as detailed above. Nauy-wh-gmmcjypz spinal canal stenosis at C5-C6, with mild mass effect on right aspect of spinal cord with mild spinal cord deformity. No convincing evidence of T2 hyperintense signal within cervical spinal cord. Presumed degenerative endplate changes at C5-C6. Early discitis is less likely. This can be clinically correlated. Anatomic Variant: None. Assume 7 cervical vertebrae with counting from the craniocervical junction. Employee Benefits Administrator: VALERIANO Transcribe Date/Time: Feb 03 2025 8:57A Dictated by : CORINA LEIGH MD This examination was interpreted and the report reviewed and electronically signed by: CORINA LEIGH MD on Feb 03 2025 9:13AM EST [id number] Normal [facility] MRI LUMBAR SPINE WO IVCONon 02-01-2025 MRI LUMBAR SPINE WO IVCON * * *Final Report* * * DATE OF EXAM: Feb 01 2025 3:54PM A1M 0303 - MRI LUMBAR SPINE WO IVCON / PROCEDURE REASON: Spinal stenosis of lumbar region with neurogenic claudication * * * * Physician Interpretation * * * * EXAMINATION: MRI LUMBAR SPINE WO IVCON CLINICAL HISTORY: Spinal stenosis of lumbar region with neurogenic claudication worsening low back pain with right lower extremity radiculopathy. TECHNIQUE: Routine lumbosacral spine MR protocol without gadolinium. MQ: [id number] COMPARISON: 09/11/2023. RESULT: Counting reference: Lumbosacral junction. For the purposes of this report, L4-5 is considered the level of the iliac crest and assume there are 5 lumbar-type vertebrae. Anatomic variant: None. Alignment: Grade 1 anterolisthesis of L3 on L4, likely secondary to facet degenerative changes. Bone marrow signal/fracture: Presumed hemangiomas within L2 and L4 vertebral bodies. The lumbar vertebral body heights are within normal limits. Conus: The conus is within normal limits of signal intensity and morphology. Paraspinal soft tissues: Partially imaged trace nonspecific right pleural effusion. T12-L1: Mild broad disc bulge. No significant neural foraminal stenosis. No significant spinal canal stenosis. L1-L2: Mild broad disc bulge. No significant neural foraminal stenosis. No significant spinal canal stenosis. L2-L3: Mild posterior disc osteophyte complex with a small central disc herniation with inferior migration. Bilateral facet degenerative changes. No significant neural foraminal stenosis. No significant spinal canal stenosis. L3-L4: Minimal grade 1 anterolisthesis of L3 on L4. Posterior disc osteophyte complex with the severe bilateral facet degenerative changes and ligamentum flavum thickening. Small central disc herniation. Mild bilateral neural foraminal stenosis. Severe bilateral lateral recess stenosis. Severe spinal canal stenosis. L4-L5: Posterior disc osteophyte complex extends into the neural foramina bilaterally. Small central disc herniation. Bilateral facet degenerative changes and ligamentum flavum thickening. Mild bilateral neural foraminal stenosis. Moderate to severe bilateral lateral recess stenosis. Moderate spinal canal stenosis. L5-S1: Posterior disc osteophyte complex with the small central disc protrusion. Severe bilateral facet degenerative changes. Mild bilateral neural foraminal stenosis. Minimal spinal canal stenosis. IMPRESSION: Severe spinal canal stenosis at L3-L4, as detailed above. Moderate spinal canal stenosis at L4-L5, as detailed above. Additional multilevel degenerative changes of the lumbar spine, as detailed above. Grade 1 anterolisthesis of L3 on L4, likely secondary to facet degenerative changes. Partially imaged trace nonspecific right pleural effusion. This is not further assessed on current examination. Anatomic Lumbar Variant: None. L4-5 is considered the level of the iliac crest and assume there are 5 lumbar-type vertebrae. Employee Benefits Administrator: VALERIANO Transcribe Date/Time: Feb 03 2025 10:35A Dictated by : CORINA LEIGH MD This examination was interpreted and the report reviewed and electronically signed by: CORINA LEIGH MD on Feb 03 2025 10:54AM EST [id number] Normal [facility] XR CERV OTHER 4V AP/LAT/FLX/ EXTon 02-01-2025 Radiology Study observation (narrative) [facility] XR CERVICAL 4V AP/LAT/FLX/EX Ton 02-01-2025 XR CERVICAL 4V AP/LAT/FLX/EXT * * *Final Report* * * DATE OF EXAM: Feb 01 2025 3:01PM A1X 5310 - XR CERVICAL 4V AP/LAT/FLX/EXT / PROCEDURE REASON: Spinal stenosis of cervical region * * * * Physician Interpretation * * * * EXAMINATION: XR CERVICAL 4V AP/LAT/FLX/EXT HISTORY: chronic neck pain, right arm pain Spinal stenosis of cervical region . TECHNIQUE: XR CERVICAL 4V AP/LAT/FLX/EXT Laterality: NOT APPLICABLE Number of different views (projections): 4 M: XB_1 COMPARISON: MRI cervical spine done the same day RESULT: There are no subluxations on neutral, flexion or extension views. Moderate degenerative disc space narrowing C5-C6. No evidence of fracture. There is uncovertebral joint spur and facet arthritis. No other significant abnormality. IMPRESSION: No acute osseous abnormality. No subluxations. These refer to the recent MRI for further details. Employee Benefits Administrator: PSCB Transcribe Date/Time: Feb 07 2025 4:40P Dictated by : SHEILA TOBIAS MD This examination was interpreted and the report reviewed and electronically signed by: SHEILA TOBIAS MD on Feb 07 2025 4:41PM EST [id number] Normal [facility] CBC (INCLUDES DIFF/PLT)on Basophils (Bld) [#/Vol] 0.082 10*3/uL Normal 0-200 [facility] Comment on above: Performed By: #### 6 399, [id number] #### [facility] [place] [address] Nut Feeder: Zeke Waldron MD Basophils/100 WBC (Bld) 1.3 % Normal [facility] Comment on above: Performed By: #### 6 399, 61023 #### [facility] [place] [address] Nut Feeder: Zeke Waldron MD Eosinophils (Bld) [#/Vol] 0.164 10*3/uL Normal 15-500 [facility] Comment on above: Performed By: #### 6 399, 31092 #### [facility] [place] [address] Nut Feeder: Zeke Waldron MD Eosinophils/100 WBC (Bld) 2.6 % Normal [facility] Comment on above: Performed By: #### 6 399, 14387 #### [facility] [place] [address] Nut Feeder: Zeke Waldron MD Erythrocyte distribution width (RBC) [Ratio] 14.9 % Normal 11.0-15.0 [facility] Comment on above: Performed By: #### 6 399, 07020 #### [facility] of [address], [address] [place] [address] Nut Feeder: Zeke Waldron MD Hematocrit (Bld) [Volume fraction] 27.5 % Low 35.0-45.0 [facility] Comment on above: Performed By: #### 6 399, 61877 #### [facility] of [address], [address] [place] [address] Nut Feeder: Zeke Waldron MD Hemoglobin (Bld) [Mass/Vol] 8.2 g/dL Low 11.7-15.5 [facility] Comment on above: Performed By: #### 6 399, 05981 #### [facility] of [address], [address] [place] [address] Nut Feeder: Zeke Waldron MD Lymphocytes (Bld) [#/Vol] 0.781 10*3/uL Low 850-3900 [facility] Comment on above: Performed By: #### 6 399, 16434 #### [facility] of [address], [address] [place] [address] Nut Feeder: Zeke Waldron MD Lymphocytes/100 WBC (Bld) 12.4 % Normal [facility] Comment on above: Performed By: #### 6 399, 90117 #### [facility] of [place] [address] Nut Feeder: Zeke Waldron MD MCH (RBC) [Entitic mass] 26.5 pg Low 27.0-33.0 [facility] Comment on above: Performed By: #### 6 399, 49020 #### [facility] of [place] [address] Nut Feeder: Zeke Waldron MD MCHC (RBC) [Mass/Vol] 29.8 g/dL Low 32.0-36.[address] [facility] Comment on above: Result Comment: For adults, a slight decrease in the calculated MCHC value (in the range of 30 to 32 g/dL) is most likely not clinically significant; however, it should be interpreted with caution in correlation with other red cell parameters and the patient's clinical condition. Performed By: #### 6 399, 04712 #### [facility] of [place] [address] Nut Feeder: Zeke Waldron MD MCV (RBC) [Entitic vol] 89.0 fL Normal 80.0-100.0 [facility] Comment on above: Performed By: #### 6 399, 04074 #### [facility] of [place] [address] Nut Feeder: Zeke Waldron MD Monocytes (Bld) [#/Vol] 0.561 10*3/uL Normal 200-950 [facility] Comment on above: Performed By: #### 6 399, 61875 #### [facility] of [place] [address] Nut Feeder: Zeke Waldron MD Monocytes/100 WBC (Bld) 8.9 % Normal [facility] Comment on above: Performed By: #### 6 399, 57981 #### [facility] [place] [address] Nut Feeder: Zeke Waldron MD Neutrophils (Bld) [#/Vol] 4.712 10*3/uL Normal 5532-9380 [facility] Comment on above: Performed By: #### 6 399, 28790 #### [facility] of [place] [address] Nut Feeder: Zeke Waldron MD Neutrophils/100 WBC (Bld) 74.8 % Normal [facility] Comment on above: Performed By: #### 6 399, 74936 #### [facility] of [place] [address] Nut Feeder: Zeke Waldron MD Platelet mean volume (Bld) [Entitic vol] 9.2 fL Normal 7.5-12.5 [facility] Comment on above: Performed By: #### 6 399, 14253 #### [facility] of [address], [address] [place] [address] Nut Feeder: Zeke Waldron MD Platelets (Bld) [#/Vol] 270 10*3/uL Normal 140-400 [facility] Comment on above: Performed By: #### 6 399, 01748 #### [facility] of [address], [address] [place] [address] Nut Feeder: Zeke Waldron MD RBC (Bld) [#/Vol] 3.09 10*6/uL Low 3.80-5.10 [facility] Comment on above: Performed By: #### 6 399, 89992 #### [facility] of [address], [address] [place] [address] Nut Feeder: Zeke Waldron MD WBC (Bld) [#/Vol] 6.3 10*3/uL Normal 3.8-10.8 [facility] Comment on above: Performed By: #### 6 399, 62539 #### [facility] of [address], [address] [place] [address] Nut Feeder: Zeke Waldron MD FERRITINon 01-28-2025 Ferritin [Mass/Vol] 55 ng/mL Normal 16-288 [facility] Comment on above: Performed By: #### 6 399, 88485 #### [facility] of [address], [address] [place] [address] Nut Feeder: Zeke Waldron MD IRON AND TOTAL IRON BINDING CAPACITYon 01-28-2025 % SATURATION 7 % (calc) Low 16-45 [facility] Comment on above: Performed By: #### 6 399, 83324 #### [facility] of [address], [address] [place] [address] Nut Feeder: Zeke Waldron MD IRON BINDING CAPACITY 384 mcg/dL (calc) Normal 250-450 [facility] Comment on above: Performed By: #### 6 399, 33905 #### [facility] of [place] [address] Nut Feeder: Zeke Waldron MD IRON, TOTAL 27 mcg/dL Low 45-160 [facility] Comment on above: Performed By: #### 6 464, 34438 #### [facility] [address], [address] [place] [address] Nut Feeder: Zeke [facility] ROLAND[facility] PETERS ([id number]) 1945 F Date Time Provider Department 01/26/25 DOMINICK HUGGINS AGOR During your visit today, we recorded the following information about you: Darrion Nevarez RN 01/26/2025 3:31 PM Signed I called and spoke to patient, she stated she will go to [facility] tomorrow to obtain updated HgbA1c. Provided office fax number for them to fax us the results. Patient verbalized understanding and appreciative of call. Patient will call office with any questions or concerns. Darrion Nevarez RN Allergies As of Date: 01/26/2025 Noted Allergy Reaction ISOSULFAN BLUE 02/10/2012 10 - Anaphylaxis METHYLENE BLUE 09/01/2022 10 - Anaphylaxis ADHESIVE 07/18/2010 2 - Rash SULFA (SULFONAMIDE ANTIBIOTICS) 07/18/2010 2 - Rash Date Reviewed: 01/18/2025 Reviewed by: Pratima Sarkar MA - Fully Assessed Reason for Visit: Overhead [employer] - Other [5560] Prescriptions as of 01/26/2025 - pantoprazole DR (PROTONIX) 40 mg tablet Take by mouth. - sertraline (ZOLOFT) 25 mg tablet Take 25 mg by mouth. - SPIRIVA RESPIMAT 2.5 mcg/actuation inhaler Inhale 2 puffs as instructed. - amLODIPine (NORVASC) 2.5 mg tablet Take 2.5 mg by mouth. - carvedilol (COREG) 12.5 mg tablet Take 12.5 mg by mouth. - apixaban (ELIQUIS) 5 mg tab(s) Take 5 mg by mouth. - furosemide (LASIX) 20 mg tablet Take 20 mg by mouth once daily. - albuterol HFA (PROVENTIL HFA, VENTOLIN HFA) 90 mcg/actuation inhaler albuterol sulfate HFA 90 mcg/actuation aerosol inhaler - aspirin, enteric coated (ASPIRIN, ENTERIC COATED) 81 mg EC tablet Take 81 mg by mouth. - cholecalciferol (VITAMIN D3) 50 mcg (2,000 unit) tablet Take 4,000 Units by mouth. - citalopram (CELEXA) 20 mg tablet Take 1 tablet by mouth every afternoon. - Clindamycin Phosphate (CLEOCIN T) 1 % lotion twice a day. Apply sparingly and massage in - cyclobenzaprine (FLEXERIL) 5 mg tablet Take 1 tablet (5 mg) by mouth as needed at bedtime for muscle spasms. - ezetimibe (ZETIA) 10 mg tablet Take 1 tablet (10 mg) by mouth in the morning. - KERENDIA 10 mg tablet Take 1 tablet by mouth every afternoon. - fluocinonide (LIDEX) 0.05 % external solution 1 (one) time each day. Apply to affected areas - icosapent ethyl (VASCEPA) 1 gram capsule TAKE 2 CAPSULES BY MOUTH 2 TIMES DAILY - lansoprazole (PREVACID) 30 mg capsule 1 capsule before a meal Orally Once a day - JENTADUETO XR 2.5-1,000 mg XR tab Take 2 tablets by mouth every afternoon. - losartan (COZAAR) 100 mg tablet Take 1 tablet by mouth every afternoon. - metoprolol tartrate, short acting, (LOPRESSOR) 25 mg tablet 1 tablet with food Orally Twice a day - rosuvastatin (CRESTOR) 10 mg tablet Take 1 tablet by mouth every afternoon. Problem List As Of Date 01/26/2025 Noted Resolved Lumbar stenosis with neurogenic claudication [M*08/13/2023 Encounter Status:Closed by [facility] Office Visit (AGOR ) ROLANDO PETERS ([id number]) 1945 F Date Time Provider Department 01/18/25 8:45 AM [facility] During your visit today, we recorded the following information about you: Pulse Respiration Blood pressure Weight 84/minute 16/minute 113/49 60.5 kg Dominick Huggins MD 01/18/2025 9:30 AM Signed SPINE SURGERY ESTABLISHED PATIENT DATE OF SERVICE: 01/18/2025 Patient Name: Ms.Marie Kelsy Peters Date of : 1945 Current Age: [age] year old Sex: female Subjective Chief Complaint: History of Present Illness: Ms.Marie Kelsy Peters has a past medical history of diabetes mellitus type 2, INGA, HTN, HLD, bilateral malignant neoplasm of breast status post right-sided mastectomy in 1993 and left-sided mastectomy in 2010. Patient was last seen in the office on 09/16/2023 and reported a longstanding history of neck and low back pain for the last 5 years that had gradually worsened. Her neck pain radiated into right anterior shoulder with occasional tingling to bilateral hands. Denied dexterity issues but endorsed occasional imbalance issues, no falls. In regards to her low back, pain radiated into right gluteal region into occasional bilateral anterior thighs. Described as a burning sensation. She endorsed paresthesia to the bottom of her feet at night. Her leg pain was most bothersome and worsened with ambulation, relieved with sitting. She reported being able to walk for about 30 minutes until she needed to sit down. However, if she walked on concrete at grocery store she was able to walk for a shorter distance. She noted she had 1 episode of her entire right lower extremity and foot was numb for 1 day, self resolved. She had full strength noted on exam with slight difficulty with tandem gait. She wished to consider L3-5 Decompression but wanted to have her lung conditions improved prior. Rolando is a 80-year-old female with a history of back pain, presenting for evaluation of worsening back pain and associated symptoms. Rolando reports a 2-3 year history of back pain that has been gradually worsening. She was previously advised to consider a 3-5 decompression in August of last year, but deferred due to lung issues, including lung nodules, which are now improving. The back pain occasionally radiates into the right gluteal region and extends down the entire right leg and foot, accompanied by paresthesia in both feet, right greater than left. She also experiences urinary urgency but denies any saddle anesthesia. The right leg pain is exacerbated by walking and sometimes by sitting and lying down. She denies weakness in the right leg but reports weakness in right dorsiflexion and AHL, necessitating lifting her leg to prevent foot dragging when walking. Additionally, she reports right-sided neck pain radiating into the shoulder, with occasional tingling down the anterior aspects of the arms into the hands, right greater than left. She notes worsening dexterity and balance issues, and has been using a cane for the past few months. She denies any falls. She has not undergone any conservative treatment for her back pain. She was on prednisone for 2-3 months for lung issues, but has recently completed the course. She has not participated in physical therapy or pain management. She is currently on Eliquis twice daily for atrial fibrillation, diagnosed in January, and underwent ablation in July. She also has a history of diabetes, with the most recent hemoglobin A1c reported to be 7 in October. She denies taking baby aspirin. Major Risk Factors Obesity Unknown Risk BMI: (No recent BMI available) High: BMI > 40 Moderate: BMI 30-40 Normal: BMI < 30 Diabetes Unknown Risk High: A1C > 8 Moderate: A1C 7-8 Normal: A1C < 7 Hx of DVT / PE normal High: dx of DVT / PE Normal: no dx of DVT / PE Smoking normal Last Status: Never High: Current smoker Normal: Non smoker Narcotics Use normal High:NarxCare >=300 Moderate: 100-299 Normal: 0-99 Depression Unknown Risk High: PHQ-9 >14 Moderate: PHQ-9 5-14 Normal: PHQ-9 < 5 Data from [facility] Epic on prior therapies: PREVIOUS CONSERVATIVE TREATMENT: -Medication: Flexeril, Prednisone (for 2-3 months for lungs and recently completed), Tylenol -Physical therapy: No recent participation. -Pain Management: No recent participation -Injections: Lumbar FELECIA 4-5 years ago- no relief. Unsure of level. PREVIOUS SPINE SURGERY: None Surgical Risk Factors: Smoking status: Denies Anticoagulants/antiplat elets: Eliquis bid for afib in January 2024, ablation in 07/2024 Diabetic: Yes, last hgba1c around 7 in October per patient Objective PHYSICAL EXAM BP (!) 113/49 (BP Site: Left Arm, BP Position: Sitting, BP Cuff Size: Regular Adult) Pulse 84 Resp 16 Wt 133 lb 6.1 oz (60.5 kg) SpO2 97% BMI 20.89 kg/m? 5/5 motor strength in BUE and BLE except 3/5 righ (more content not included)... Normal [facility] XR SCOLIOSIS 2V PA STAND/LAT on 01-18-2025 XR SCOLIOSIS 2V PA STAND/LAT * * *Final Report* * * DATE OF EXAM: Jan 18 2025 8:30AM A1X 5251 - XR SCOLIOSIS 2V PA STAND/LAT / PROCEDURE REASON: Lumbar stenosis with neurogenic claudication * * * * Physician Interpretation * * * * EXAMINATION / TECHNIQUE: XR SCOLIOSIS 2V PA STAND/LAT HISTORY: worsening chronic low back pain radiating into legs, w foot numbness, some balance issues Lumbar stenosis with neurogenic claudication COMPARISON: 09/03/2023 RESULT: Counting reference: Lumbosacral junction. For the purposes of this report, L4-5 is considered the level of the iliac crest and there are 5 lumbar-type vertebrae. Anatomic Variants: None. Mild broad leftward curvature of the thoracolumbar spine centered at T11 measures about 9 degrees. Preserved thoracic kyphosis and lumbar lordosis. Vertebral body heights and sagittal alignment are maintained. Mild multilevel degenerative disc disease. Lower lumbar facet arthropathy. Diffuse aortoiliac atherosclerotic calcifications. IMPRESSION: Thoracolumbar levocurvature and multilevel spondylosis as described. Employee Benefits Administrator: PSCB Transcribe Date/Time: Jan 22 2025 11:18A Dictated by : ROSALEE THURMAN MD This examination was interpreted and the report reviewed and electronically signed by: ROSALEE THURMAN MD on Jan 22 2025 11:21AM EST [id number] Normal [facility] 36on 01-17-2025 36 Normal [facility] BLOOD TYPE AND SCREEN GELon 01-17-2025 ABO GROUPING O Normal [facility] Comment on above: Performed By: #### L [id number] ####Nut Feeder: DARELL CLEMENS ([id number])[facility] ([facility])[address] RH TYPE IN BLOOD Positive Normal [facility] Comment on above: Performed By: #### L [id number] ####Nut Feeder: DARELL CLEMENS ([id number])[facility] ([facility])[address] Blood type and Crossmatch pa hamzah (Bld)on 01-17-2025 ABO group Nom (Bld) O [facility] Blood group antibody screen GEL Ql Negative [facility] D Ag Ql (RBC) Positive [facility] h [facility] CBC (HEMOGRAM)on 01-17-2025 Erythrocyte distribution width (RBC) [Ratio] 14.9 % Normal 11.5-15.0 [facility] Comment on above: Performed By: #### L [id number] ####Nut Feeder: DARELL CLEMENS ([id number])[facility] ([facility])[address] [place] [address] Hematocrit (Bld) [Volume fraction] 20.3 % Low 35.0-47.0 [facility] Comment on above: Performed By: #### L [id number] ####Nut Feeder: DARELL CLEMENS ([id number])[facility] ([facility])[address] Hemoglobin (Bld) [Mass/Vol] 6.0 g/dL Critically low 11.7-16.0 [facility] Comment on above: Performed By: #### L [id number] ####Nut Feeder: DARELL CLEMENS ([id number])[facility] ([facility])[address] MCH (RBC) [Entitic mass] 24.9 pg Low 26.0-34.0 [facility] Comment on above: Performed By: #### L [id number] ####Nut Feeder: DARELL BABCOCKStormSHAYLA ([id number])[facility]YA [facility]OS[facility] ([facility])[address] MCHC 29.6 % Low 30.5-36.0 [facility] Comment on above: Performed By: #### L AB294 ####Nut Feeder: DARELL YAKOV ([id number])[facility] CENTERIndio MCCALLUMN (SBHLAB)[address] MCV (RBC) [Entitic vol] 84.2 fL Normal 77.0-99.0 [facility] Comment on above: Performed By: #### L AB294 ####Nut Feeder: DARELLPORFIRIO CLEMENS ([id number])[facility]ENTERIndio ESPINOSA (SBHLAB)[address] Platelet mean volume (Bld) [Entitic vol] 8.8 fL Low 9.0-12.7 [facility] Comment on above: Performed By: #### L AB294 ####Nut Feeder: DARELL YAKOV ([id number])[facility] CENTERIndio MEMBRENOGALLUP INDIAN MEDICAL CENTERChirsti (SBHLAB)[address] Platelets (Bld) [#/Vol] 261 10*3/uL Normal 140-440 [facility] Comment on above: Performed By: #### L AB294 ####Nut Feeder: DARELL BABCOCKSCOTT ([id number])[facility] CENTERIndio MEMBRENOGALLUP INDIAN MEDICAL CENTERChristi (SBHLAB)[address] RBC (Bld) [#/Vol] 2.41 10*6/uL Low 3.80-5.20 [facility] Comment on above: Performed By: #### L AB294 ####Nut Feeder: DARELL BABCOCKSCOTT ([id number])[facility] CENTERIndio MEMBRENOHONORHE[facility] (SBHLAB)[address] WBC (Bld) [#/Vol] 6.4 10*3/uL Normal 3.6-10.7 [facility] Comment on above: Performed By: #### L AB294 ####Nut Feeder: DARELL CLEMENS ([id number])LOYIndio TEMIANSHUL (SBHLAB)[address] [place] [address] CBC (INCLUDES DIFF/PLT)on Basophils (Bld) [#/Vol] 0.066 10*3/uL Normal 0-200 [facility] Comment on above: Performed By: #### 6 399 #### [facility] of [place] [address] Nut Feeder: Zeke Waldron MD Basophils/100 WBC (Bld) 0.8 % Normal [facility] Comment on above: Performed By: #### 6 399 #### [facility] of [place] [address] Nut Feeder: Zeke Waldron MD COMMENT(S) Normal [facility] Comment on above: Result Comment: Oval ocytes 2 + Performed By: #### 6 399 #### [facility] of [place] [address] Nut Feeder: Zeke Waldron MD Eosinophils (Bld) [#/Vol] 0.133 10*3/uL Normal 15-500 [facility] Comment on above: Performed By: #### 6 399 #### [facility] of [place] [address] Nut Feeder: Zeke Waldron MD Eosinophils/100 WBC (Bld) 1.6 % Normal [facility] Comment on above: Performed By: #### 6 399 #### [facility] of [place] [address] Nut Feeder: Zeke Waldron MD Erythrocyte distribution width (RBC) [Ratio] 14.9 % Normal 11.0-15.0 [facility] Comment on above: Performed By: #### 6 399 #### [facility] of [place] [address] Nut Feeder: Zeke Waldron MD Hematocrit (Bld) [Volume fraction] 20.5 % Low 35.0-45.0 [facility] Comment on above: Performed By: #### 6 399 #### [facility] of [place] [address] Nut Feeder: Zeke Waldron MD Hemoglobin (Bld) [Mass/Vol] 6.1 g/dL Low 11.7-15.5 [facility] Comment on above: Result Comment: Veri fied by repeat analysis. Performed By: #### 6 399 #### [facility] of [address], [address] [place] [address] Nut Feeder: Zeke Waldron MD Lymphocytes (Bld) [#/Vol] 0.813 10*3/uL Low 850-3900 [facility] Comment on above: Performed By: #### 6 399 #### [facility] [place] [address] Nut Feeder: Zeke Waldron MD Lymphocytes/100 WBC (Bld) 9.8 % Normal [facility] Comment on above: Performed By: #### 6 399 #### [facility] of [place] [address] Nut Feeder: Zeke Waldron MD MCH (RBC) [Entitic mass] 25.7 pg Low 27.0-33.0 [facility] Comment on above: Performed By: #### 6 399 #### [facility] [place] [address] Nut Feeder: Zeke Waldron MD MCHC (RBC) [Mass/Vol] 29.8 g/dL Low 32.0-36.[address] [facility] Comment on above: Result Comment: For adults, a slight decrease in the calculated MCHC value (in the range of 30 to 32 g/dL) is most likely not clinically significant; however, it should be interpreted with caution in correlation with other red cell parameters and the patient's clinical condition. Performed By: #### 6 399 #### [facility] [place] [address] Nut Feeder: Zeke Waldron MD MCV (RBC) [Entitic vol] 86.5 fL Normal 80.0-100.0 [facility] Comment on above: Performed By: #### 6 399 #### [facility] of [place] [address] Nut Feeder: Zeke Waldron MD Monocytes (Bld) [#/Vol] 0.73 10*3/uL Normal 200-950 [facility] Comment on above: Performed By: #### 6 399 #### [facility] of [address], [address] [place] [address] Nut Feeder: Zeke Waldron MD Monocytes/100 WBC (Bld) 8.8 % Normal [facility] Comment on above: Performed By: #### 6 399 #### [facility] of [place] [address] Nut Feeder: Zeke Waldron MD Neutrophils (Bld) [#/Vol] 6.557 10*3/uL Normal 6308-4632 [facility] Comment on above: Performed By: #### 6 399 #### [facility] of [place] [address] Nut Feeder: Zeke Waldron MD Neutrophils/100 WBC (Bld) 79 % Normal [facility] Comment on above: Performed By: #### 6 399 #### [facility] of [place] [address] Nut Feeder: Zeke Waldron MD Platelet mean volume (Bld) [Entitic vol] 9.3 fL Normal 7.5-12.5 [facility] Comment on above: Performed By: #### 6 399 #### [facility] of [place] [address] Nut Feeder: Zeke Waldron MD Platelets (Bld) [#/Vol] 337 10*3/uL Normal 140-400 [facility] Comment on above: Performed By: #### 6 399 #### [facility] of [place] [address] Nut Feeder: Zeke Waldron MD RBC (Bld) [#/Vol] 2.37 10*6/uL Low 3.80-5.10 [facility] Comment on above: Performed By: #### 6 399 #### [facility] [address], [address] [place] [address] Nut Feeder: Zeke Waldron MD WBC (Bld) [#/Vol] 8.3 10*3/uL Normal 3.8-10.8 [facility] Comment on above: Performed By: #### 6 399 #### [facility] [address], [address] [place] [address] Nut Feeder: Zeke Waldron MD CBC panel Auto (Bld)Ordered By: Magaly Miranda on 01-17-2025 Erythrocyte distribution width (RBC) [Ratio] 14.9 % 11.5 - 15.0 % [facility] [employer] Hematocrit (Bld) [Volume fraction] 20.3 % Low 35.0 - 47.0 % [facility] [employer] Hemoglobin (Bld) [Mass/Vol] 6 g/dL Critically low 11.7 - 16.0 g/dL [facility] Interpretation and review of laboratory results Abnormal [facility] [employer] MCH (RBC) [Entitic mass] 24.9 pg Low 26.0 - 34.0 pg [facility] [employer] MCHC (RBC) [Mass/Vol] 29.6 % Low 30.5 - 36.0 % [facility] [employer] MCV (RBC) [Entitic vol] 84.2 fL 77.0 - 99.0 fL [facility] [employer] Platelet mean volume (Bld) [Entitic vol] 8.8 fL Low 9.0 - 12.7 fL [facility] [employer] Platelets (Bld) [#/Vol] 261 10*3/uL 140 - 440 10*3/uL [facility] [employer] RBC (Bld) [#/Vol] 2.41 10*6/uL Low 3.80 - 5.2 0 10*6/uL [facility] [employer] WBC (Bld) [#/Vol] 6.4 10*3/uL 3.6 - 10.7 10*3/uL [facility] ED Provider Noteon ED Provider Note Normal [facility] SHS HEMOGLOBIN AND HEMATOCRIT, B LOODon 01-17-2025 Hematocrit (Bld) [Volume fraction] 28.2 % Low 35.0-47.0 [facility] Comment on above: Result Comment: SANDRA Tierney COMMENTS:Recommend 1 hour post transfusionPost transfusion Performed By: #### L [id number] ####Nut Feeder: DARELL CLEMENS ([phone])[facility] [place] [address] Hemoglobin (Bld) [Mass/Vol] 8.8 g/dL Low 11.7-16.0 [facility] Comment on above: Performed By: #### L [id number] ####Nut Feeder: DARELL CLEMENS ([phone])[facility] [place] [address] Hemoglobin (Bld) [Mass/Vol]O rdered By: Jaqueline Card on 01-17-2025 Hematocrit (Bld) [Volume fraction] 28.2 % Low 35.0 - 47.0 % [facility] Interpretation and review of laboratory results Abnormal [facility] Post transfusion [facility] alth [facility] Laboratory - Hematology and Cell countsOrdered By: Jaqueline Card on 01-17-2025 Hemoglobin (Bld) [Mass/Vol] 8.8 g/dL Low 11.7 - 16.0 g/dL [facility] No Panel Informationon 01-17 Blood Expiration Date [id number] [facility] Crossmatch interpretation COMP [facility] Dispense Status Transfused [facility] Product Blood Type 5100 [facility] PRODUCT CODE [id number] [facility] Unit ABO O [facility] Health Unit Number [id number] [facility] alth Unit Number [id number] [facility] alth Unit RH Positive [facility] Unit Volume 300 mL [facility] Nursing Noteon 01-12-2025 Nursing Note Spoke with pt, francia ing a 11:15 am on Thursday. No caffeine, decaf or chocolate x 12 hours. NPO x 4 hours. Bring a lunch with fat content. Test takes approx. 2.5 hours. Normal [facility] No Panel Informationon 12-29 [facility] Progress Noteon 12-28-2024 Progress Note Normal [facility] 36on 12-22-2024 36 Faxed over cardiac clearance to [facility] 12/22/24. [facility] [address] Jerome for clearance letter [facility] 36on 12-20-2024 36 Received phone call from Suly with [employer] in regards to patient's clearance. Patient saw Dr. Jerome on 12-12-24 but clearance not mentioned in note. Please advise thank you. Surgery is scheduled for 12-26-24. [facility] 36 Called the patient t o see if she is still using the CPAP and if she can bring it. LVM. Normal [facility] CBC (INCLUDES DIFF/PLT)on Basophils (Bld) [#/Vol] 0.04 10*3/uL Normal 0-200 [facility] Comment on above: Performed By: #### 6 399 #### [facility] [place] [address] Nut Feeder: Zeke Waldron MD Basophils/100 WBC (Bld) 0.4 % Normal [facility] Comment on above: Performed By: #### 6 399 #### [facility] [place] [address] Nut Feeder: Zeke Waldron MD Eosinophils (Bld) [#/Vol] 0.089 10*3/uL Normal 15-500 [facility] Comment on above: Performed By: #### 6 399 #### [facility] [place] [address] Nut Feeder: Zeke Waldron MD Eosinophils/100 WBC (Bld) 0.9 % Normal [facility] Comment on above: Performed By: #### 6 399 #### [facility] [place] [address] Nut Feeder: Zeke Waldron MD Erythrocyte distribution width (RBC) [Ratio] 15.1 % High 11.0-15.0 [facility] Comment on above: Performed By: #### 6 399 #### [facility] of [place] [address] Nut Feeder: Zeke Waldron MD Hematocrit (Bld) [Volume fraction] 27.4 % Low 35.0-45.0 [facility] Comment on above: Performed By: #### 6 399 #### [facility] of [place] [address] Nut Feeder: Zeke Waldron MD Hemoglobin (Bld) [Mass/Vol] 8.3 g/dL Low 11.7-15.5 [facility] Comment on above: Performed By: #### 6 399 #### [facility] of [place] [address] Nut Feeder: Zeke Waldron MD Lymphocytes (Bld) [#/Vol] 1.406 10*3/uL Normal 850-3900 [facility] Comment on above: Performed By: #### 6 399 #### [facility] of [place] [address] Nut Feeder: Zeke Waldron MD Lymphocytes/100 WBC (Bld) 14.2 % Normal [facility] Comment on above: Performed By: #### 6 399 #### [facility] of [place] [address] Nut Feeder: Zeke Waldron MD MCH (RBC) [Entitic mass] 27.3 pg Normal 27.0-33.0 [facility] Comment on above: Performed By: #### 6 399 #### [facility] of [place] [address] Nut Feeder: Zeke Waldron MD MCHC (RBC) [Mass/Vol] 30.3 g/dL Low 32.0-36.[address] [facility] Comment on above: Result Comment: For adults, a slight decrease in the calculated MCHC value (in the range of 30 to 32 g/dL) is most likely not clinically significant; however, it should be interpreted with caution in correlation with other red cell parameters and the patient's clinical condition. Performed By: #### 6 399 #### [facility] of [place] [address] Nut Feeder: Zeke Waldron MD MCV (RBC) [Entitic vol] 90.1 fL Normal 80.0-100.0 [facility] Comment on above: Performed By: #### 6 399 #### [facility] of [place] [address] Nut Feeder: Zeke Waldron MD Monocytes (Bld) [#/Vol] 0.861 10*3/uL Normal 200-950 [facility] Comment on above: Performed By: #### 6 399 #### [facility] of [place] [address] Nut Feeder: Zeke Waldron MD Monocytes/100 WBC (Bld) 8.7 % Normal [facility] Comment on above: Performed By: #### 6 399 #### [facility] of [place] [address] Nut Feeder: Zeke Waldron MD Neutrophils (Bld) [#/Vol] 7.504 10*3/uL Normal 7097-8214 [facility] Comment on above: Performed By: #### 6 399 #### [facility] of [place] [address] Nut Feeder: Zeke Waldron MD Neutrophils/100 WBC (Bld) 75.8 % Normal [facility] Comment on above: Performed By: #### 6 399 #### [facility] of [place] [address] Nut Feeder: Zeke Waldron MD Platelet mean volume (Bld) [Entitic vol] 9.1 fL Normal 7.5-12.5 [facility] Comment on above: Performed By: #### 6 399 #### [facility] of [place] [address] Nut Feeder: Zeke Waldron MD Platelets (Bld) [#/Vol] 264 10*3/uL Normal 140-400 [facility] Comment on above: Performed By: #### 6 399 #### [facility] of [address], [address] [place] [address] Nut Feeder: Zeke Waldron MD RBC (Bld) [#/Vol] 3.04 10*6/uL Low 3.80-5.10 [facility] Comment on above: Performed By: #### 6 399 #### [facility] of [address], [address] [place] [address] Nut Feeder: Zeke Waldron MD WBC (Bld) [#/Vol] 9.9 10*3/uL Normal 3.8-10.8 [facility] Comment on above: Performed By: #### 6 399 #### [facility] of [address], [address] [place] [address] Nut Feeder: Zeke Waldron MD Progress Noteon 12-15-2024 Progress Note Moderate. Coronary r isk equivalent. No symptoms. History of right carotid endarterectomy. Carotid US 04/2024 - moderate dz LICA; consider f/u in 1-2 yrs -Given ASCVD and DM2/CKD consider add SGLT2i Normal [facility] Progress Note Normal [facility] Progress Note Normal [facility] ECG 12 leadon 12-12-2024 Sinus Rhythm WITHIN NORMAL LIMITS [facility] Progress Noteon 12-12-2024 Progress Note Mixed HPL. Target LD L <70. Excellent response to current meds. TG also <150. Labs 11/2024 - Cont zetia - Cont crestor - Cont Vascepa - lipids due in November of every year Normal [facility] Progress [facility] Progress Note [facility] Progress Note Normal [facility] 36on 11-30-2024 36 Pt returned my hawk d and notify the results. Pt understood and have no question at this time. Normal [facility] 36on 11-29-2024 36 2nd Normal [facility] 36 Patient fills with S HSP using [facility] FA. Please review pended Rx and send to [facility] if appropriate. Thank you! Normal [facility] CBC (INCLUDES DIFF/PLT)on Basophils (Bld) [#/Vol] 0.046 10*3/uL Normal 0-200 [facility] Comment on above: Performed By: #### 6 399, 61355 #### [facility] of [address], [address] [place] [address] Nut Feeder: Zeke Waldron MD Basophils/100 WBC (Bld) 0.4 % Normal [facility] Comment on above: Performed By: #### 6 399, 40043 #### [facility] [place] [address] Nut Feeder: Zeke Waldron MD Eosinophils (Bld) [#/Vol] 0.127 10*3/uL Normal 15-500 [facility] Comment on above: Performed By: #### 6 399, 39378 #### [facility] of [place] [address] Nut Feeder: Zeke Waldron MD Eosinophils/100 WBC (Bld) 1.1 % Normal [facility] Comment on above: Performed By: #### 6 399, 66142 #### [facility] [place] [address] Nut Feeder: Zeke Waldron MD Erythrocyte distribution width (RBC) [Ratio] 15.0 % Normal 11.0-15.0 [facility] Comment on above: Performed By: #### 6 399, 61771 #### [facility] [place] [address] Nut Feeder: Zeke Waldron MD Hematocrit (Bld) [Volume fraction] 26.8 % Low 35.0-45.0 [facility] Comment on above: Performed By: #### 6 399, 28597 #### [facility] [place] [address] Nut Feeder: Zeke Waldron MD Hemoglobin (Bld) [Mass/Vol] 8.3 g/dL Low 11.7-15.5 [facility] Comment on above: Performed By: #### 6 399, 66482 #### [facility] of [address], [address] [place] [address] Nut Feeder: Zeke Waldron MD Lymphocytes (Bld) [#/Vol] 1.702 10*3/uL Normal 850-3900 [facility] Comment on above: Performed By: #### 6 399, 22838 #### [facility] of [address], [address] [place] [address] Nut Feeder: Zeke Waldron MD Lymphocytes/100 WBC (Bld) 14.8 % Normal [facility] Comment on above: Performed By: #### 6 399, 94422 #### [facility] of [address], [address] [place] [address] Nut Feeder: Zeke Waldron MD MCH (RBC) [Entitic mass] 27.6 pg Normal 27.0-33.0 [facility] Comment on above: Performed By: #### 6 399, 54256 #### [facility] of [address], [address] [place] [address] Nut Feeder: Zeke Waldron MD MCHC (RBC) [Mass/Vol] 31.0 g/dL Low 32.0-36.[address] [facility] Comment on above: Result Comment: For adults, a slight decrease in the calculated MCHC value (in the range of 30 to 32 g/dL) is most likely not clinically significant; however, it should be interpreted with caution in correlation with other red cell parameters and the patient's clinical condition. Performed By: #### 6 399, 10764 #### [facility] of [address], [address] [place] [address] Nut Feeder: Zeke Waldron MD MCV (RBC) [Entitic vol] 89.0 fL Normal 80.0-100.0 [facility] Comment on above: Performed By: #### 6 399, 40362 #### [facility] of [address], [address] [place] [address] Nut Feeder: Zeke Waldron MD Monocytes (Bld) [#/Vol] 0.817 10*3/uL Normal 200-950 [facility] Comment on above: Performed By: #### 6 399, 32851 #### [facility] of [place] [address] Nut Feeder: Zeke Waldron MD Monocytes/100 WBC (Bld) 7.1 % Normal [facility] Comment on above: Performed By: #### 6 399, 69509 #### [facility] of [place] [address] Nut Feeder: Zeke Waldron MD Neutrophils (Bld) [#/Vol] 8.809 10*3/uL High 9115-2119 [facility] Comment on above: Performed By: #### 6 399, 83308 #### [facility] of [place] [address] Nut Feeder: Zeke Waldron MD Neutrophils/100 WBC (Bld) 76.6 % Normal [facility] Comment on above: Performed By: #### 6 399, 24478 #### [facility] of [place] [address] Nut Feeder: Zeke Waldron MD Platelet mean volume (Bld) [Entitic vol] 9.9 fL Normal 7.5-12.5 [facility] Comment on above: Performed By: #### 6 399, 62175 #### [facility] of [place] [address] Nut Feeder: Zeke Waldron MD Platelets (Bld) [#/Vol] 324 10*3/uL Normal 140-400 [facility] Comment on above: Performed By: #### 6 399, 32512 #### [facility] of [place] [address] Nut Feeder: Zeke Waldron MD RBC (Bld) [#/Vol] 3.01 10*6/uL Low 3.80-5.10 [facility] Comment on above: Performed By: #### 6 399, 47439 #### [facility] of [place] [address] Nut Feeder: Zeke Waldron MD WBC (Bld) [#/Vol] 11.5 10*3/uL High 3.8-10.8 [facility] Comment on above: Performed By: #### 6 399, 49109 #### [facility] of [place] [address] Nut Feeder: Zeke Waldron MD COMPREHENSIVE METABOLIC PANE L W/ANION GAPon 11-26-2024 Albumin [Mass/Vol] 3.7 g/dL Normal 3.6-5.1 [facility] Comment on above: Performed By: #### 6 399, 65228 #### [facility] of [place] [address] Nut Feeder: Zeke Waldrno MD ALP [Catalytic activity/Vol] 41 U/L Normal 37-153 [facility] Comment on above: Performed By: #### 6 399, 92599 #### [facility] of [place] [address] Nut Feeder: Zeke Waldron MD ALT [Catalytic activity/Vol] 13 U/L Normal 6-29 [facility] Comment on above: Performed By: #### 6 399, 25826 #### [facility] of [place] [address] Nut Feeder: Zeke Waldron MD AST [Catalytic activity/Vol] 12 U/L Normal 10-35 [facility] Comment on above: Performed By: #### 6 399, 04345 #### [facility] of [place] [address] Nut Feeder: Zeke Waldron MD Bilirubin [Mass/Vol] 0.6 mg/dL Normal 0.2-1.2 [facility] Comment on above: Performed By: #### 6 399, 37945 #### [facility] of [place] [address] Nut Feeder: Zeke Waldron MD Calcium [Mass/Vol] 8.9 mg/dL Normal 8.6-10.4 [facility] Comment on above: Performed By: #### 6 399, 70228 #### [facility] of [place] [address] Nut Feeder: Zeke Waldron MD Chloride [Moles/Vol] 108 mmol/L Normal 98-110 [facility] Comment on above: Performed By: #### 6 399, 91816 #### [facility] of [place] [address] Nut Feeder: Zeke Waldron MD CO2 [Moles/Vol] 20 mmol/L Normal 20-32 [facility] Comment on above: Performed By: #### 6 399, 15975 #### [facility] of [place] [address] Nut Feeder: Zeke Waldron MD Creatinine [Mass/Vol] 0.98 mg/dL Normal 0.60-1.00 [facility] Comment on above: Performed By: #### 6 399, 43402 #### [facility] of [place] [address] Nut Feeder: Zeke Waldron MD ELECTROLYTE BALANCE 9 mmol/L (calc) Normal 7-17 [facility] Comment on above: Performed By: #### 6 399, 93917 #### [facility] of [place] [address] Nut Feeder: Zeke Waldron MD GFR/1.73 sq M.predicted among non-blacks MDRD (S/P/Bld) [Vol rate/Area] 59 mL/min/{1.73_m2} Low > OR = 60 [facility] Comment on above: Performed By: #### 6 399, 59221 #### [facility] of [place] [address] Nut Feeder: Zeke Waldron MD Glucose [Mass/Vol] 90 mg/dL Normal 65-99 [facility] Comment on above: Result Comment: Fasting reference interval Performed By: #### 6 399, 88990 #### [facility] of [address], [address] [place] [address] Nut Feeder: Zeke Waldron MD Potassium [Moles/Vol] 4.0 mmol/L Normal 3.5-5.3 [facility] Comment on above: Performed By: #### 6 399, 20217 #### [facility] of [address], [address] [place] [address] Nut Feeder: Zeke Waldron MD Protein [Mass/Vol] 5.7 g/dL Low 6.1-8.1 [facility] Comment on above: Performed By: #### 6 399, 35509 #### [facility] [address], [address] [place] [address] Nut Feeder: Zeke Waldron MD Sodium [Moles/Vol] 137 mmol/L Normal 135-146 [facility] Comment on above: Performed By: #### 6 399, 57613 #### [facility] [place] [address] Nut Feeder: Zeke Waldron MD Urea nitrogen [Mass/Vol] 30 mg/dL High 7-25 [facility] Comment on above: Performed By: #### 6 399, 50004 #### [facility] of [place] [address] Nut Feeder: Zeke Waldron MD 36on 11-24-2024 36 We have been unable to reach your patient to schedule their testing. Test Name: stress test 1st Attempt: 11/10 Shahiyat message sent 2nd Attempt: 11/24 left voicemail 2 cancellations [facility] 36 Spoke with pt to schedule her sooner with Marcia or JUNE. Pt states she is feeling ok and will keep the appt with SAK on 12-12-24. Normal [facility] 36 Pt is scheduled for a colonoscopy on 12-26-24 Please advise if cleared Normal [facility] 36on 11-22-2024 36 Called pt to notify results. LVM Normal [facility] 36on 11-21-2024 36 Normal [facility] 36 Provider discussed w ith pt Normal [facility] 36on 11-20-2024 36 Normal [facility] 36 Normal [facility] 36on 11-19-2024 36 Normal [facility] 36 Normal [facility] Progress Noteon 11-19-2024 Progress Note Normal [facility] 36on 11-18-2024 36 Overnight oximetry report uploaded in media, please review. Thank you [facility] 36 Called patient to le t her know the stress test is canceled. Thanks [facility] POCT UA Automated manually r esultedon 11-18-2024 Glucose Test strip (U) [Mass/Vol] Negative NEGATIVE mg/dl [facility] Work Phone: [phone] Comment on above: Neg Hemoglobin Ql (U) Negative NEGATIVE [facility] Work Phone: [phone] Interpretation and review of laboratory results Abnormal [facility] Work Phone: [phone] Leukocyte esterase Test strip Ql (U) Negative NEGATIVE [facility] Work Phone: [phone] Nitrite Ql (U) Negative NEGATIVE [facility] Work Phone: [phone] (U) 5.5 [pH] No Reference Range Established [facility] Work Phone: [phone] POC Bilirubin, Urine Negative NEGATIVE [facility] Work Phone: [phone] POC Ketones, Urine Negative NEGATIVE mg/dl [facility] Work Phone: [phone] POC Protein, Urine 30 (1+) Abnormal NEGATIVE mg/dl [facility] Work Phone: [phone] POC Specific [place], Urine 1.010 1.005 - 1.035 [facility] Work Phone: [phone] POC Urobilinogen, Urine 0.2 0.2, 1.0 EU/DL [facility] Work Phone: [facility] Work Phone: 36on 11-17-2024 36 Normal [facility] CBC (INCLUDES DIFF/PLT)on Basophils (Bld) [#/Vol] 0.025 10*3/uL Normal 0-200 [facility] Comment on above: Performed By: #### 7 600, 81570, 57956, 6399, 91253 #### [facility] of [place] [address] Nut Feeder: Zeke Waldron MD Basophils/100 WBC (Bld) 0.2 % Normal [facility] Comment on above: Performed By: #### 7 600, 00741, 71691, 6399, 18165 #### [facility] [place] [address] Nut Feeder: Zeke Waldron MD Eosinophils (Bld) [#/Vol] 0.05 10*3/uL Normal 15-500 [facility] Comment on above: Performed By: #### 7 600, 74135, 27837, 6399, 19142 #### [facility] of [place] [address] Nut Feeder: Zeke Waldron MD Eosinophils/100 WBC (Bld) 0.4 % Normal [facility] Comment on above: Performed By: #### 7 600, 87887, 85051, 6399, 66120 #### [facility] of [place] [address] Nut Feeder: Zeke Waldron MD Erythrocyte distribution width (RBC) [Ratio] 15.1 % High 11.0-15.0 [facility] Comment on above: Performed By: #### 7 600, 29644, 31083, 6399, 57646 #### [facility] of [place] [address] Nut Feeder: Zeke Waldron MD Hematocrit (Bld) [Volume fraction] 24.1 % Low 35.0-45.0 [facility] Comment on above: Performed By: #### 7 600, 51373, 28290, 6399, 83643 #### [facility] of [place] [address] Nut Feeder: Zeke Waldron MD Hemoglobin (Bld) [Mass/Vol] 7.4 g/dL Low 11.7-15.5 [facility] Comment on above: Performed By: #### 7 600, 28494, 12248, 6399, 24219 #### [facility] of [address], [address] [place] [address] Nut Feeder: Zeke Waldron MD Lymphocytes (Bld) [#/Vol] 1.327 10*3/uL Normal 850-3900 [facility] Comment on above: Performed By: #### 7 600, 08533, 97652, 6399, 12881 #### [facility] of [place] [address] Nut Feeder: Zeke Waldron MD Lymphocytes/100 WBC (Bld) 10.7 % Normal [facility] Comment on above: Performed By: #### 7 600, 05505, 93245, 6399, 42005 #### [facility] of [place] [address] Nut Feeder: Zeke Waldron MD MCH (RBC) [Entitic mass] 27.6 pg Normal 27.0-33.0 [facility] Comment on above: Performed By: #### 7 600, 41232, 14116, 6399, 18832 #### [facility] of [place] [address] Nut Feeder: Zeke Waldron MD MCHC (RBC) [Mass/Vol] 30.7 g/dL Low 32.0-36.[address] [facility] Comment on above: Result Comment: For adults, a slight decrease in the calculated MCHC value (in the range of 30 to 32 g/dL) is most likely not clinically significant; however, it should be interpreted with caution in correlation with other red cell parameters and the patient's clinical condition. Performed By: #### 7 600, 01018, 17091, 6399, 27328 #### [facility] of [place] [address] Nut Feeder: Zeke Waldron MD MCV (RBC) [Entitic vol] 89.9 fL Normal 80.0-100.0 [facility] Comment on above: Performed By: #### 7 600, 67262, 38628, 6399, 49688 #### [facility] of [place] [address] Nut Feeder: Zeke Waldron MD Monocytes (Bld) [#/Vol] 0.856 10*3/uL Normal 200-950 [facility] Comment on above: Performed By: #### 7 600, 42995, 10253, 6399, 22376 #### [facility] of [place] [address] Nut Feeder: Zeke Waldron MD Monocytes/100 WBC (Bld) 6.9 % Normal [facility] Comment on above: Performed By: #### 7 600, 05319, 46798, 6399, 32742 #### [facility] of [place] [address] Nut Feeder: Zeke Waldron MD Neutrophils (Bld) [#/Vol] 10.143 10*3/uL High 3256-1042 [facility] Comment on above: Performed By: #### 7 600, 47461, 77674, 6399, 70187 #### [facility] of [place] [address] Nut Feeder: Zeke Waldron MD Neutrophils/100 WBC (Bld) 81.8 % Normal [facility] Comment on above: Performed By: #### 7 600, 63316, 85552, 6399, 47304 #### [facility] [place] [address] Nut Feeder: Zeke Waldron MD Platelet mean volume (Bld) [Entitic vol] 9.5 fL Normal 7.5-12.5 [facility] Comment on above: Performed By: #### 7 600, 13650, 36645, 6399, 86536 #### [facility] [place] [address] Nut Feeder: Zeke Waldron MD Platelets (Bld) [#/Vol] 280 10*3/uL Normal 140-400 [facility] Comment on above: Performed By: #### 7 600, 27317, 81031, 6399, 95727 #### [facility] of [address], [address] [place] [address] Nut Feeder: Zeke Waldron MD RBC (Bld) [#/Vol] 2.68 10*6/uL Low 3.80-5.10 [facility] Comment on above: Performed By: #### 7 600, 34438, 80963, 6399, 74366 #### [facility] [place] [address] Nut Feeder: Zeke Waldron MD WBC (Bld) [#/Vol] 12.4 10*3/uL High 3.8-10.8 [facility] Comment on above: Performed By: #### 7 600, 75908, 23394, 6399, 45545 #### [facility] [place] [address] Nut Feeder: Zeke Waldron MD COMPREHENSIVE METABOLIC PANE L W/ANION GAPon 11-17-2024 Albumin [Mass/Vol] 3.6 g/dL Normal 3.6-5.1 [facility] Comment on above: Performed By: #### 7 600, 21888, 35300, 6399, 48752 #### [facility] [place] [address] Nut Feeder: Zeke Waldron MD ALP [Catalytic activity/Vol] 43 U/L Normal 37-153 [facility] Comment on above: Performed By: #### 7 600, 94813, 89691, 6399, 09527 #### [facility] of [address] [place] [address] Nut Feeder: Zeke Waldron MD ALT [Catalytic activity/Vol] 18 U/L Normal 6-29 [facility] Comment on above: Performed By: #### 7 600, 54239, 63077, 6399, 88581 #### [facility] [place] [address] Nut Feeder: Zeke Waldron MD AST [Catalytic activity/Vol] 12 U/L Normal 10-35 [facility] Comment on above: Performed By: #### 7 600, 02149, 14971, 6399, 04173 #### [facility] [place] [address] Nut Feeder: Zeke Waldron MD Bilirubin [Mass/Vol] 0.6 mg/dL Normal 0.2-1.2 [facility] Comment on above: Performed By: #### 7 600, 37836, 24293, 6399, 85779 #### [facility] of [address], [address] [place] [address] Nut Feeder: Zeke Waldron MD Calcium [Mass/Vol] 8.7 mg/dL Normal 8.6-10.4 [facility] Comment on above: Performed By: #### 7 600, 87933, 37071, 6399, 28192 #### [facility] [place] [address] Nut Feeder: Zeke Waldron MD Chloride [Moles/Vol] 106 mmol/L Normal 98-110 [facility] Comment on above: Performed By: #### 7 600, 05315, 37614, 6399, 31926 #### [facility] [place] [address] Nut Feeder: Zeke Waldron MD CO2 [Moles/Vol] 24 mmol/L Normal 20-32 [facility] Comment on above: Performed By: #### 7 600, 92754, 89969, 6399, 55709 #### [facility] of [address] [place] [address] Nut Feeder: Zeke Waldron MD Creatinine [Mass/Vol] 0.93 mg/dL Normal 0.60-1.[address] [facility] Comment on above: Performed By: #### 7 600, 99859, 58495, 6399, 29766 #### [facility] [address], [address] [place] [address] Nut Feeder: Zeke Waldron MD ELECTROLYTE BALANCE 9 mmol/L (calc) Normal 7-17 [facility] Comment on above: Performed By: #### 7 600, 99194, 34654, 6399, 72325 #### [facility] [place] [address] Nut Feeder: Zeke Waldron MD GFR/1.73 sq M.predicted among non-blacks MDRD (S/P/Bld) [Vol rate/Area] 63 mL/min/{1.73_m2} Normal > OR = 60 [facility] Comment on above: Performed By: #### 7 600, 07355, 20502, 6399, 05853 #### [facility] [place] [address] Nut Feeder: Zeke Waldron MD Glucose [Mass/Vol] 91 mg/dL Normal 65-99 [facility] Comment on above: Result Comment: Fasting reference interval Performed By: #### 7 600, 62095, 90930, 6399, 61625 #### [facility] [place] [address] Nut Feeder: Zeke Waldron MD Potassium [Moles/Vol] 4.0 mmol/L Normal 3.5-5.[address] [facility] Comment on above: Performed By: #### 7 600, 13905, 65492, 6399, 24696 #### [facility] [place] [address] Nut Feeder: Zeke Waldron MD Protein [Mass/Vol] 5.4 g/dL Low 6.1-8.1 [facility] Comment on above: Performed By: #### 7 600, 85338, 41991, 6399, 55668 #### [facility] [place] [address] Nut Feeder: Zeke Waldron MD Sodium [Moles/Vol] 139 mmol/L Normal 135-146 [facility] Comment on above: Performed By: #### 7 600, 10650, 92104, 6399, 28308 #### [facility] [place] [address] Nut Feeder: Zeke Waldron MD Urea nitrogen [Mass/Vol] 23 mg/dL Normal 7-25 [facility] Comment on above: Performed By: #### 7 600, 92896, 58094, 6399, 50280 #### [facility] [place] [address] Nut Feeder: Zeke Waldron MD HEMOGLOBIN A1c WITH eAGon eAG (mg/dL) Normal [facility] Comment on above: Performed By: #### 7 600, 58990, 92219, 6399, 54571 #### [facility] [place] [address] Nut Feeder: Zeke Waldron MD eAG (mmol/L) Normal [facility] Comment on above: Performed By: #### 7 600, 36621, 98315, 6399, 35832 #### [facility] [place] [address] Nut Feeder: Zeke Waldron MD HEMOGLOBIN A1c Normal [facility] Comment on above: Performed By: #### 7 600, 34049, 54786, 6399, 46599 #### [facility] [place] [address] Nut Feeder: Zeke Waldron MD LIPID PANEL, STANDARDon 04 Cholesterol [Mass/Vol] 129 mg/dL Normal <200 [facility] Comment on above: Order Comment: FASTI NG:YES FASTING: YES Performed By: #### 7 600, 91085, 29353, 6399, 66083 #### [facility] [address], [address] [place] [address] Nut Feeder: Zeke Waldron MD Cholesterol in HDL [Mass/Vol] 57 mg/dL Normal > OR = 50 [facility] Comment on above: Order Comment: FASTI NG:YES FASTING: YES Performed By: #### 7 600, 79760, 57770, 6399, 59741 #### [facility] [address], [address] [place] [address] Nut Feeder: Zeke Waldron MD Cholesterol in LDL [Mass/Vol] 54 mg/dL Normal [facility] Comment on above: Order Comment: FASTI NG:YES FASTING: YES Result Comment: Refe rence range: <100 Desirable range <100 mg/dL for primary prevention; <70 mg/dL for patients with CHD or diabetic patients with > or = 2 CHD risk factors. LDL-C is now calculated using the Jefferson calculation, which is a validated novel method providing better accuracy than the Friedewald equation in the estimation of LDL-C. Balbir OLSON et al. SARAH. 2013;310(19): 5235-3553 (http://education.Bluetector.Kmsocial/faq/QFO603) Performed By: #### 7 600, 49860, 09682, 6399, 39587 #### [facility] [address], [address] [place] [address] Nut Feeder: Zeke Waldron MD Cholesterol.total/Lulu sterol in HDL [Mass ratio] 2.3 {ratio} Normal <5.0 [facility] Comment on above: Order Comment: FASTI NG:YES FASTING: YES Performed By: #### 7 600, 79244, 18339, 6399, 60732 #### [facility] [address], [address] [place] [address] Nut Feeder: Zeke Waldron MD NON HDL CHOLESTEROL 72 mg/dL (calc) Normal <130 [facility] Comment on above: Order Comment: FASTI NG:YES FASTING: YES Result Comment: For patients with diabetes plus 1 major ASCVD risk factor, treating to a non-HDL-C goal of <100 mg/dL (LDL-C of <70 mg/dL) is considered a therapeutic option. Performed By: #### 7 600, 28877, 92536, 6399, 59568 #### [facility] [address], [address] [place] [address] Nut Feeder: Zeke Waldron MD Triglyceride [Mass/Vol] 94 mg/dL Normal <150 [facility] Comment on above: Order Comment: FASTI NG:YES FASTING: YES Performed By: #### 7 600, 81491, 19501, 6399, 99863 #### [facility] [address], [address] [place] [address] Nut Feeder: Zeke Waldron MD TSH W/REFLEX TO FT4on 2024 TSH W/REFLEX TO FT4 Normal [facility] Comment on above: Performed By: #### 7 600, 53611, 68986, 6399, 39849 #### [facility] [address], [address] [place] [address] Nut Feeder: Zeke Waldron MD VITAMIN D,25-OH,TOTAL,IAon 0 11-17-2024 VITAMIN D,25-OH,TOTAL,IA Normal [facility] Comment on above: Performed By: #### 7 600, 18974, 07537, 6399, 74734 #### [facility] [address], [address] [place] [address] Nut Feeder: Zeke aWldron MD 36on 11-15-2024 36 Normal [facility] 36 Normal [facility] 36on 11-14-2024 36 Normal [facility] 30on 11-11-2024 30 Normal [facility] [id number] 11-11-2024 [id number] [facility] BASIC METABOLIC PANELon - Anion gap [Moles/Vol] 9 mmol/L Normal 3-13 [facility] Comment on above: Performed By: #### L AB15 ####Nut Feeder: DARELL CLEMENS ([phone])[facility] [place] (SBHLAB)[address] Calcium [Mass/Vol] 8.5 mg/dL Low 8.8-10.0 [facility] Comment on above: Performed By: #### L AB15 ####Nut Feeder: DARELL CLEMENS ([id number])[facility] [place] (SBHLAB)[address] Chloride [Moles/Vol] 108 mmol/L High 98-107 [facility] Comment on above: Performed By: #### L AB15 ####Nut Feeder: DARELL CLEMENS ([id number])[facility] [place] (SBHLAB)[address] CO2 [Moles/Vol] 22 mmol/L Low 23-31 [facility] Comment on above: Performed By: #### L AB15 ####Nut Feeder: DARELL CLEMENS ([phone])[facility] (SBHLAB)[address] Creatinine [Mass/Vol] 0.82 mg/dL Normal 0.57-1.11 [facility] Comment on above: Performed By: #### L AB15 ####Nut Feeder: DARELL CLEMENS ([phone])[facility] (SBHLAB)[address] [place] [address] [place] GLOMERULAR FILTRATION RATE ML/MIN/1.73 SQ M.PREDICTED 73.3 mL/min/1.73m*2 Normal >60.0 [facility] Comment on above: Result Comment: Calc ulation based on the Chronic Kidney Disease Epidemiology Collaboration (CKD-EPI) equation refit without adjustment for race Performed By: #### L AB15 ####Nut Feeder: DARELL CLEMENS ([id number])[facility] [place] (SBHLAB)[address] [place] [address] [place] Glucose [Mass/Vol] 138 mg/dL High 82-115 [facility] Comment on above: Performed By: #### L AB15 ####Nut Feeder: DARELL MCCANNSHAYLA ([phone])[facility] (SBHLAB)[address] Potassium [Moles/Vol] 3.9 mmol/L Normal 3.5-5.1 [facility] Comment on above: Result Comment: [facility] potassium values may be up to 0.5 mmol/L lower than serum values. Performed By: #### L AB15 ####Nut Feeder: DARELL MCCANNSHAYLA ([phone])[facility] (SBHLAB)[address] Sodium [Moles/Vol] 139 mmol/L Normal 136-145 [facility] Comment on above: Performed By: #### L AB15 ####Nut Feeder: DARELL MCCANNSHAYLA ([phone])[facility] (SBHLAB)[address] Urea nitrogen [Mass/Vol] 20 mg/dL Normal 9-23 [facility] Comment on above: Performed By: #### L AB15 ####Nut Feeder: DARELL BABCOCKSCOTT ([phone])[facility] (SBHLAB)[address] Basic metabolic 1998 panelon 11-11-2024 Anion gap [Moles/Vol] 9 mmol/L 3 - 13 mmol/L [facility] Calcium [Mass/Vol] 8.5 mg/dL Low 8.8 - 10. 0 mg/dL [facility] Chloride [Moles/Vol] 108 mmol/L High 98 - 10 7 mmol/L [facility] CO2 [Moles/Vol] 22 mmol/L Low 23 - 31 mmol/L [facility] Creatinine [Mass/Vol] 0.82 mg/dL 0.57 - 1.11 mg/dL [facility] GFR/1.73 sq M.predicted (S/P/Bld) [Vol rate/Area] 73.3 mL/min - PINF [facility] Comment on above: Calculation based on the Chronic Kidney Disease Epidemiology Collaboration (CKD-EPI) equation refit without adjustment for race Glucose [Mass/Vol] 138 mg/dL High 82 - 115 mg/dL [facility] Interpretation and review of laboratory results Abnormal [facility] Potassium [Moles/Vol] 3.9 mmol/L 3.5 - 5.1 mmol/L [facility] Comment on above: Plasma potassium kamryn ues may be up to 0.5 mmol/L lower than serum values. Sodium [Moles/Vol] 139 mmol/L 136 - 145 mmol/L [facility] Urea nitrogen [Mass/Vol] 20 mg/dL 9 - 23 mg/dL [facility] CBC W Auto Differential pane l (Bld)on 11-11-2024 Basophils (Bld) [#/Vol] 0 10*3/uL 0.0 - 0.2 10*3/uL [facility] Basophils/100 WBC (Bld) 0.4 % 0.0 - 2.0 % [facility] Eosinophils (Bld) [#/Vol] 0.1 10*3/uL 0.0 - 0.5 10*3/uL [facility] Eosinophils/100 WBC (Bld) 0.6 % 0.0 - 6.0 % [facility] Erythrocyte distribution width (RBC) [Ratio] 15.9 % High 11.5 - 15.0 % [facility] Hematocrit (Bld) [Volume fraction] 23.5 % Low 35.0 - 47.0 % [facility] Hemoglobin (Bld) [Mass/Vol] 7.5 g/dL Low 11.7 - 16.0 g/dL [facility] Immature granulocytes (Bld) [#/Vol] 0.1 10*3/uL High NINF - 0.1 10*3/uL [facility] Immature granulocytes/100 WBC (Bld) 1.5 % 0.0 - 2.0 % [facility] Interpretation and review of laboratory results Abnormal [facility] Lymphocytes (Bld) [#/Vol] 1.1 10*3/uL 1.0 - 4.3 10*3/uL [facility] Lymphocytes/100 WBC (Bld) 11.2 % Low 15.0 - 45.0 % [facility] MCH (RBC) [Entitic mass] 27.6 pg 26.0 - 34.0 pg [facility] MCHC (RBC) [Mass/Vol] 31.9 % 30.5 - 36.0 % [facility] MCV (RBC) [Entitic vol] 86.4 fL 77.0 - 99.0 fL [facility] Monocytes (Bld) [#/Vol] 1 10*3/uL High 0.0 - 0.9 10*3/uL [facility] Monocytes/100 WBC (Bld) 9.9 % 5.0 - 13.0 % [facility] Neutrophils (Bld) [#/Vol] 7.3 10*3/uL 1.8 - 7.5 10*3/uL [facility] Neutrophils/100 WBC (Bld) 76.4 % 38.0 - 82.0 % [facility] Nucleated RBC/100 WBC (Bld) [Ratio] 0 % [facility] Platelet mean volume (Bld) [Entitic vol] 8.9 fL Low 9.0 - 12.7 fL [facility] Platelets (Bld) [#/Vol] 270 10*3/uL 140 - 440 10*3/uL [facility] RBC (Bld) [#/Vol] 2.72 10*6/uL Low 3.80 - 5.2 0 10*6/uL [facility] WBC (Bld) [#/Vol] 9.6 10*3/uL 3.6 - 10.7 10*3/uL [facility] CBC WITH AUTO DIFFERENTIALon 11-11-2024 Basophils (Bld) [#/Vol] 0.0 10*3/uL Normal 0.0-0.2 [facility] Comment on above: Performed By: #### L [id number] ####Nut Feeder: DARELL CLEMENS ([phone])[facility] ([facility])[address] [place] [address] Basophils/100 WBC (Bld) 0.4 % Normal 0.0-2.0 [facility] Comment on above: Performed By: #### L [id number] ####Nut Feeder: DARELL CLEMENS ([phone])[facility] (SBAB)[address] Eosinophils (Bld) [#/Vol] 0.1 10*3/uL Normal 0.0-0.5 [facility] Comment on above: Performed By: #### L [id number] ####Nut Feeder: DARELL [phone])[facility] [place] (SBAB)[address] Eosinophils/100 WBC (Bld) 0.6 % Normal 0.0-6.0 [facility] Comment on above: Performed By: #### L [id number] ####Nut Feeder: DARELL CLEMENS ([id number])[facility])[address] Erythrocyte distribution width (RBC) [Ratio] 15.9 % High 11.5-15.0 [facility] Comment on above: Performed By: #### L [id number] ####Nut Feeder: DARELL CLEMENS ([phone])[facility] ([facility])[address] [place] [address] Hematocrit (Bld) [Volume fraction] 23.5 % Low 35.0-47.0 [facility] Comment on above: Performed By: #### L [id number] ####Nut Feeder: DARELL CLEMENS ([phone])[facility] ([facility])[address] [place] [address] Hemoglobin (Bld) [Mass/Vol] 7.5 g/dL Low 11.7-16.0 [facility] Comment on above: Performed By: #### L [id number] ####Nut Feeder: DARELL CLEMENS ([phone])[facility] ([facility])[address] IMMATURE GRANS % 1.5 % Normal 0.0-2.0 [facility] Comment on above: Performed By: #### L [id number] ####Nut Feeder: DARELL CLEMENS ([id number])[facility] ([facility])[address] IMMATURE GRANS ABSOLUTE 0.1 10*3/uL High <0.1 [facility] Comment on above: Performed By: #### L [id number] ####Nut Feeder: DARELL CLEMENS ([phone])[facility] [place] (SBHLAB)[address] Lymphocytes (Bld) [#/Vol] 1.1 10*3/uL Normal 1.0-4.3 [facility] Comment on above: Performed By: #### L [id number] ####Nut Feeder: DARELL CLEMENS ([phone])[facility] [place] (SBHLAB)[address] Lymphocytes/100 WBC (Bld) 11.2 % Low 15.0-45.0 [facility] Comment on above: Performed By: #### L [id number] ####Nut Feeder: DARELL CLEMENS ([phone])[facility] [place] (SBHLAB)[address] MCH (RBC) [Entitic mass] 27.6 pg Normal 26.0-34.0 [facility] Comment on above: Performed By: #### L [id number] ####Nut Feeder: DARELL CLEMENS ([phone])[facility] [place] (SBHLAB)[address] [place] [address] MCHC 31.9 % Normal 30.5-36.0 [facility] Comment on above: Performed By: #### L [id number] ####Nut Feeder: DARELL CLEMENS ([phone])[facility] [place] (SBHLAB)[address] [place] [address] MCV (RBC) [Entitic vol] 86.4 fL Normal 77.0-99.0 [facility] Comment on above: Performed By: #### L [id number] ####Nut Feeder: DARELL CLEMENS ([phone])[facility] [place] (SBHLAB)[address] Monocytes (Bld) [#/Vol] 1.0 10*3/uL High 0.0-0.9 [facility] Comment on above: Performed By: #### L [id number] ####Nut Feeder: DARELL CLEMENS ([phone])[facility] [place] (SBHLAB)[address] Monocytes/100 WBC (Bld) 9.9 % Normal 5.0-13.0 [facility] Comment on above: Performed By: #### L [id number] ####Nut Feeder: DARELL CLEMENS ([id number])[facility] [place] (SBHLAB)[address] NEUTROPHILS ABSOLUTE 7.3 10*3/uL Normal 1.8-7.5 [facility] Comment on above: Performed By: #### L [id number] ####Nut Feeder: DARELL CLEMENS ([id number])[facility] [place] (SBHLAB)[address] Neutrophils/100 WBC (Bld) 76.4 % Normal 38.0-82.0 [facility] Comment on above: Performed By: #### L [id number] ####Nut Feeder: DARELL CLEMENS ([id number])[facility] [place] (SBHLAB)[address] NRBC 0.0 /100 WBCs Normal 0.0-2.0 [facility] Comment on above: Performed By: #### L [id number] ####Nut Feeder: DARELL CLEMENS ([id number])[facility] [place] (SBHLAB)[address] Platelet mean volume (Bld) [Entitic vol] 8.9 fL Low 9.0-12.7 [facility] Comment on above: Performed By: #### L [id number] ####Nut Feeder: DARELL CLEMENS ([phone])[facility] [place] (SBHLAB)[address] [place] [address] [place] Platelets (Bld) [#/Vol] 270 10*3/uL Normal 140-440 [facility] Comment on above: Performed By: #### L [id number] ####Nut Feeder: DARELL CLEMENS ([id number])[facility] [place] (SBHLAB)[address] RBC (Bld) [#/Vol] 2.72 10*6/uL Low 3.80-5.20 [facility] Comment on above: Performed By: #### L [id number] ####Nut Feeder: DARELL CLEMENS ([phone])[facility] (SBHLAB)[address] WBC (Bld) [#/Vol] 9.6 10*3/uL Normal 3.6-10.7 [facility] Comment on above: Performed By: #### L [id number] ####Nut Feeder: DARELL CLEMENS ([phone])[facility] (SBHLAB)[address] [place] [address] Laboratory - Chemistry and C hemistry - challengeon 11-11-2024 Glucose [Mass/Vol] 219 mg/dL High 70 - 100 mg/dL [facility] Glucose [Mass/Vol] 143 mg/dL High 70 - 100 mg/dL [facility] No Panel Informationon 11-11 Interpretation and review of laboratory results Abnormal [facility] Performed by: [facility], [address] [place] [address] CLIA ID: [id number] [facility] Interpretation and review of laboratory results Abnormal [facility] Performed by: [facility], [address] [place] [address] CLIA ID: [id number] [facility] [id number] 11-10-2024 [id number] [facility] 36on 11-10-2024 36 The insurance is now covering only the generic and because we had filled the previous script for brand only, we had to get a new one, so as of now, everything should be good to go for her next fill. Thank you! [facility] 36 [facility] that Vascepa is not on their formulary, and she was give temporary thirty day supply 10/31/24. Letter scanned to Media. [facility] 36 Received Compliance. In Pt's Media. [facility] 36 Spoke to Kera dinero, They received compliance and would fax it over. Have yet to get anything. Going to call later. Normal [facility] Anesthesia Noteon 11-10-2024 Anesthesia Note Normal [facility] Anesthesia Note Normal [facility] BASIC METABOLIC PANELon - Anion gap [Moles/Vol] 10 mmol/L Normal 3-13 [facility] Comment on above: Performed By: #### L AB15 ####Nut Feeder: DARELL CLEMENS ([phone])[facility] [place] (SBHLAB)[address] Calcium [Mass/Vol] 8.3 mg/dL Low 8.8-10.0 [facility] Comment on above: Performed By: #### L AB15 ####Nut Feeder: DARELL CLEMENS ([id number])[facility] [place] (SBHLAB)[address] Chloride [Moles/Vol] 105 mmol/L Normal 98-107 [facility] Comment on above: Performed By: #### L AB15 ####Nut Feeder: DARELL CLEMENS ([phone])[facility] [place] (SBHLAB)[address] CO2 [Moles/Vol] 20 mmol/L Low 23-31 [facility] Comment on above: Performed By: #### L AB15 ####Nut Feeder: DARELL CLEMENS ([id number])[facility] [place] (SBHLAB)[address] Creatinine [Mass/Vol] 0.80 mg/dL Normal 0.57-1.11 [facility] Comment on above: Performed By: #### L AB15 ####Nut Feeder: DARELL CLEMENS ([phone])[facility] [place] (SBHLAB)[address] GLOMERULAR FILTRATION RATE ML/MIN/1.73 SQ M.PREDICTED 75.5 mL/min/1.73m*2 Normal >60.0 [facility] Comment on above: Result Comment: Calc ulation based on the Chronic Kidney Disease Epidemiology Collaboration (CKD-EPI) equation refit without adjustment for race Performed By: #### L AB15 ####Nut Feeder: DARELL CLEMENS ([phone])[facility] [place] (HLAB)[address] Glucose [Mass/Vol] 229 mg/dL High 82-115 [facility] Comment on above: Performed By: #### L AB15 ####Nut Feeder: DARELL CLEMENS ([phone])[facility] ([facility])[address] Potassium [Moles/Vol] 4.3 mmol/L Normal 3.5-5.1 [facility] Comment on above: Result Comment: [facility] potassium values may be up to 0.5 mmol/L lower than serum values. Performed By: #### L AB15 ####Nut Feeder: DARELL CLEMENS ([phone])[facility] [place] ([facility])[address] [address] Sodium [Moles/Vol] 135 mmol/L Low 136-145 [facility] Comment on above: Performed By: #### L [id number] ####Nut Feeder: DARELL CLEMENS ([phone])[facility] (HLAB)[address] Urea nitrogen [Mass/Vol] 16 mg/dL Normal 9-23 [facility] Comment on above: Performed By: #### L [id number] ####Nut Feeder: DARELL CLEMENS ([phone])[facility] (HLAB)[address] Basic metabolic 1998 panelon 11-10-2024 Anion gap [Moles/Vol] 10 mmol/L 3 - 13 mmol/L [facility] Calcium [Mass/Vol] 8.3 mg/dL Low 8.8 - 10. 0 mg/dL [facility] Chloride [Moles/Vol] 105 mmol/L 98 - 10 7 mmol/L [facility] CO2 [Moles/Vol] 20 mmol/L Low 23 - 31 mmol/L [facility] Creatinine [Mass/Vol] 0.8 mg/dL 0.57 - 1.11 mg/dL [facility] GFR/1.73 sq M.predicted (S/P/Bld) [Vol rate/Area] 75.5 mL/min - PINF [facility] Comment on above: Calculation based on the Chronic Kidney Disease Epidemiology Collaboration (CKD-EPI) equation refit without adjustment for race Glucose [Mass/Vol] 229 mg/dL High 82 - 115 mg/dL [facility] Interpretation and review of laboratory results Abnormal [facility] Potassium [Moles/Vol] 4.3 mmol/L 3.5 - 5.1 mmol/L [facility] Comment on above: Plasma potassium kamryn ues may be up to 0.5 mmol/L lower than serum values. Sodium [Moles/Vol] 135 mmol/L Low 136 - 145 mmol/L [facility] Urea nitrogen [Mass/Vol] 16 mg/dL 9 - 23 mg/dL [facility] CBC W Auto Differential pane l (Bld)Ordered By: Kiera Bailon on 11-10-2024 Erythrocyte distribution width (RBC) [Ratio] 15.8 % High 11.5 - 15.0 % [facility] Hematocrit (Bld) [Volume fraction] 23.1 % Low 35.0 - 47.0 % [facility] Hemoglobin (Bld) [Mass/Vol] 7.4 g/dL Low 11.7 - 16.0 g/dL [facility] MCH (RBC) [Entitic mass] 27.6 pg 26.0 - 34.0 pg [facility] MCHC (RBC) [Mass/Vol] 32 % 30.5 - 36.0 % [facility] MCV (RBC) [Entitic vol] 86.2 fL 77.0 - 99.0 fL [facility] Platelet mean volume (Bld) [Entitic vol] 9.1 fL 9.0 - 12.7 fL [facility] Platelets (Bld) [#/Vol] 276 10*3/uL 140 - 440 10*3/uL [facility] RBC (Bld) [#/Vol] 2.68 10*6/uL Low 3.80 - 5.2 0 10*6/uL [facility] WBC (Bld) [#/Vol] 8.1 10*3/uL 3.6 - 10.7 10*3/uL [facility] CBC WITH AUTO DIFFERENTIALon 11-10-2024 Erythrocyte distribution width (RBC) [Ratio] 15.8 % High 11.5-15.0 [facility] Comment on above: Performed By: #### L [id number], [id number] ####Nut Feeder: DARELL CLEMENS ([phone])[facility] (SBAB)[address] [place] [address] Hematocrit (Bld) [Volume fraction] 23.1 % Low 35.0-47.0 [facility] Comment on above: Performed By: #### L [id number], [id number] ####Nut Feeder: DARELL CLEMENS ([phone])[facility] [place] [address] Hemoglobin (Bld) [Mass/Vol] 7.4 g/dL Low 11.7-16.0 [facility] Comment on above: Performed By: #### L [id number], [id number] ####Nut Feeder: DARELL CLEMENS ([phone])[facility] [place] [address] MCH (RBC) [Entitic mass] 27.6 pg Normal 26.0-34.0 [facility] Comment on above: Performed By: #### L [id number], [id number] ####Nut Feeder: DARELL CLEMENS ([phone])[facility] [place] [address] MCHC 32.0 % Normal 30.5-36.0 [facility] Comment on above: Performed By: #### L [id number], [id number] ####Nut Feeder: DARELL CLEMENS ([phone])[facility] [place] [address] MCV (RBC) [Entitic vol] 86.2 fL Normal 77.0-99.0 [facility] Comment on above: Performed By: #### L [id number], [id number] ####Nut Feeder: DARELL CLEMENS ([phone])[facility] (SBHLAB)[address] Platelet mean volume (Bld) [Entitic vol] 9.1 fL Normal 9.0-12.7 [facility] Comment on above: Performed By: #### L [id number], [id number] ####Nut Feeder: DARELL CLEMENS ([phone])[facility]ENTER[facility]io [facility] (SBHLAB)[address] Platelets (Bld) [#/Vol] 276 10*3/uL Normal 140-440 [facility] Comment on above: Performed By: #### L [id number], [id number] ####Nut Feeder: DARELL CLEMENS ([phone])[facility] (SBHLAB)[address] RBC (Bld) [#/Vol] 2.68 10*6/uL Low 3.80-5.20 [facility] Comment on above: Performed By: #### L [id number], [id number] ####Nut Feeder: DARELL CLEMENS ([phone])[facility] (SBHLAB)[address] WBC (Bld) [#/Vol] 8.1 10*3/uL Normal 3.6-10.7 [facility] Comment on above: Performed By: #### L [id number], [id number] ####Nut Feeder: DARELL CLEMENS ([phone])[facility] (SBHLAB)[address] Consulton 11-10-2024 Consult Normal [facility] HEMOGLOBIN AND HEMATOCRIT, B LOODon 11-10-2024 Hematocrit (Bld) [Volume fraction] 23.2 % Low 35.0-47.0 [facility] Comment on above: Performed By: #### L [id number] ####Nut Feeder: DARELL CLEMENS ([phone])[facility] (SBAB)[address] [place] [address] Hemoglobin (Bld) [Mass/Vol] 7.4 g/dL Low 11.7-16.0 [facility] Comment on above: Performed By: #### L [id number] ####Nut Feeder: DARELL CLEMENS ([phone])[facility] ([facility])[address] [place] [address] HIGH SENSITIVITY TROPONIN, S ERIAL BASELINEon 11-10-2024 TROPONIN HS SERIAL BASELINE 9 ng/L Normal <=14 [facility] Comment on above: Result Comment: In i ndividuals presenting with symptoms > 2h, a baseline troponin <= 5 ng/L suggests acutecardiac injury is unlikely and further serial testing is generally not indicated. Performed By: #### L [id number] ####Nut Feeder: DARELL CLEMENS ([phone])[facility] ([facility])[address] [place] [address] Hemoglobin (Bld) [Mass/Vol]o n 11-10-2024 Hematocrit (Bld) [Volume fraction] 23.2 % Low 35.0 - 47.0 % [facility] Interpretation and review of laboratory results Abnormal [facility] Laboratory - Chemistry and C hemistry - challengeon 11-10-2024 Glucose [Mass/Vol] 269 mg/dL High 70 - 100 mg/dL [facility] Glucose [Mass/Vol] 245 mg/dL High 70 - 100 mg/dL [facility] Glucose [Mass/Vol] 130 mg/dL High 70 - 100 mg/dL [facility] Glucose [Mass/Vol] 214 mg/dL High 70 - 100 mg/dL [facility] Laboratory - Hematology and Cell countson 11-10-2024 Hemoglobin (Bld) [Mass/Vol] 7.4 g/dL Low 11.7 - 16.0 g/dL [facility] Band form neutrophils (Bld) [#/Vol] 0.1 10*3/uL High NINF - 0.0 10*3/uL [facility] Band form neutrophils/100 WBC (Bld) 1 % High NINF - 0 % [facility] Mirtha cells LM Ql (Bld) Slight Abnormal (none) [facility] Eosinophils (Bld) [#/Vol] 0.2 10*3/uL 0.0 - 0.5 10*3/uL [facility] Eosinophils/100 WBC (Bld) 2 % 0 - 6 % [facility] Hypochromia Ql (Bld) Slight Abnormal (none) [facility] Lymphocytes (Bld) [#/Vol] 0.5 10*3/uL Low 1.0 - 4.3 10*3/uL [facility] Lymphocytes/100 WBC (Bld) 6 % Low 15 - 45 % [facility] Monocytes (Bld) [#/Vol] 0.2 10*3/uL 0.0 - 0.9 10*3/uL [facility] Monocytes/100 WBC (Bld) 2 % Low 5 - 13 % [facility] Neutrophils (Bld) [#/Vol] 7.3 10*3/uL 1.8 - 7.5 10*3/uL [facility] Ovalocytes LM Ql (Bld) Slight Abnormal (none) [facility] Poikilocytosis LM Ql (Bld) Moderate Abnormal (none) [facility] Polychromasia LM Ql (Bld) Slight Abnormal (none) [facility] RBC morphology finding Nom (Bld) abnormal [facility] Segmented neutrophils/100 WBC (Bld) 89 % High 38 - 82 % [facility] MANUAL DIFFERENTIAL (CELLAVI ANYA)on 11-10-2024 ACANTHOCYTES (PRESENCE) IN BLOOD BY LIGHT MICROSCOPY Slight Abnormal (none) [facility] Comment on above: Performed By: #### L [id number], [id number] ####Nut Feeder: DARELL CLEMENS ([phone])[facility]A [facility]BGALL[facility]ERN (SBHLAB)[address] BAND NEUTROPHILS TOTAL PER COUNTED LEUKOCYTES BY MANUAL COUNT 1 Normal [facility] Comment on above: Performed By: #### L [id number], [id number] ####Nut Feeder: DARELL CLEMENS ([phone])[facility] [place] (SBHLAB)[address] BANDS (10*3/UL) IN BLOOD-CELLAVISION 0.1 10*3/uL High <=0.0 [facility] Comment on above: Performed By: #### L [id number], [id number] ####Nut Feeder: DARELL CLEMENS ([phone])[facility] [place] (SBHLAB)[address] [place] [address] [place] BASOPHILS TOTAL PER COUNTED LEUKOCYTES BY MANUAL COUNT Normal [facility] Comment on above: Performed By: #### L [id number], [id number] ####Nut Feeder: DARELL MCCANNSHAYLA ([phone])[facility] [place] (SBHLAB)[address] [place] [address] [place] BLASTS TOTAL PER COUNTED LEUKOCYTES BY MANUAL COUNT Normal [facility] Comment on above: Performed By: #### L [id number], [id number] ####Nut Feeder: DARELL CLEMENS ([phone])[facility] [place] (SBHLAB)[address] [place] [address] [place] MIRTHA CELLS PRESENCE IN BLOOD BY LIGHT MICROSCOPY Slight Abnormal (none) [facility] Comment on above: Performed By: #### L [id number], [id number] ####Nut Feeder: DARELL CLEMENS ([phone])[facility] [place] (SBHLAB)[address] [place] [address] [place] EOSINOPHILS (10*3/UL) IN BLOOD-CELLAVISION 0.2 10*3/uL Normal 0.0-0.5 [facility] Comment on above: Performed By: #### L [id number], [id number] ####Nut Feeder: DARELL CLEMENS ([phone])[facility] [place] (SBHLAB)[address] [place] [address] [place] EOSINOPHILS TOTAL PER COUNTED LEUKOCYTES BY MANUAL COUNT 2 High 0-1 [facility] Comment on above: Performed By: #### L [id number], [id number] ####Nut Feeder: DARELL CLEMENS ([phone])[facility] [place] (SBHLAB)[address] [place] [address] [place] EOSINOPHILS/100 LEUKOCYTES IN BLOOD-CELLAVISION 2 % Normal 0-6 [facility] Comment on above: Performed By: #### L [id number], [id number] ####Nut Feeder: DARELL CLEMENS ([phone])[facility] [place] (SBHLAB)[address] [place] [address] [place] HYPOCHROMIA (PRESENCE) IN BLOOD BY LIGHT MICROSCOPY Slight Abnormal (none) [facility] Comment on above: Performed By: #### L [id number], [id number] ####Nut Feeder: DARELL CLEMENS ([phone])[facility] [place] (SBHLAB)[address] [place] [address] [place] LYMPHOCYTES (10*3/UL) IN BLOOD-CELLAVISION 0.5 10*3/uL Low 1.0-4.3 [facility] Comment on above: Performed By: #### L [id number], [id number] ####Nut Feeder: DARELL CLEMENS ([phone])[facility] [place] (SBHLAB)[address] [place] [address] [place] LYMPHOCYTES TOTAL PER COUNTED LEUKOCYTES BY MANUAL COUNT 6 Normal [facility] Comment on above: Performed By: #### L [id number], [id number] ####Nut Feeder: DARELL CLEMENS ([phone])[facility] [place] (SBHLAB)[address] [place] [address] [place] LYMPHOCYTES/100 LEUKOCYTES IN BLOOD-CELLAVISION 6 % Low 15-45 [facility] Comment on above: Performed By: #### L [id number], [id number] ####Nut Feeder: DARELL CLEMENS ([phone])[facility] [place] (SBHLAB)[address] [place] [address] [place] METAMYELOCYTES TOTAL PER COUNTED LEUKOCYTES BY MANUAL COUNT Normal [facility] Comment on above: Performed By: #### L [id number], [id number] ####Nut Feeder: DARELL CLEMENS ([phone])[facility] [place] (SBHLAB)[address] [place] [address] [place] MONOCYTES (10*3/UL) IN BLOOD-CELLAVISION 0.2 10*3/uL Normal 0.0-0.9 [facility] Comment on above: Performed By: #### L [id number], [id number] ####Nut Feeder: DARELL MCCANNSHAYLA ([phone])[facility] [place] (SBHLAB)[address] [place] [address] [place] MONOCYTES TOTAL PER COUNTED LEUKOCYTES BY MANUAL COUNT 2 Normal [facility] Comment on above: Performed By: #### L [id number], [id number] ####Nut Feeder: DARELL MCCANNSHAYLA ([phone])[facility] [place] (SBHLAB)[address] [place] [address] [place] MONOCYTES/100 LEUKOCYTES IN BLOOD-CASSANDRA 2 % Low 5-13 [facility] Comment on above: Performed By: #### L [id number], [id number] ####Nut Feeder: DARELL CLEMENS ([phone])[facility] [place] (SBHLAB)[address] [place] [address] [place] MYELOCYTES COUNTED BY MANUAL COUNT Normal [facility] Comment on above: Performed By: #### L [id number], [id number] ####Nut Feeder: DARELL CLEMENS ([phone])[facility] [place] (SBHLAB)[address] [place] [address] [place] NEUTROPHILS BAND FORM/100 LEUKOCYTES IN BLOOD-CELLAVISI 1 % High <=0 [facility] Comment on above: Performed By: #### L [id number], [id number] ####Nut Feeder: DARELL MCCANNSHAYLA ([phone])[facility] [place] (SBHLAB)[address] [place] [address] [place] NEUTROPHILS TOTAL PER COUNTED LEUKOCYTES BY MANUAL COUNT 89 Normal [facility] Comment on above: Performed By: #### L [id number], [id number] ####Nut Feeder: DARELL CLEMENS ([phone])[facility] [place] (SBHLAB)[address] [place] [address] [place] OVALOCYTES PRESENCE IN BLOOD BY LIGHT MICROSCOPY Slight Abnormal (none) [facility] Comment on above: Performed By: #### L [id number], [id number] ####Nut Feeder: DARELL CLEMENS ([phone])[facility] [place] (SBHLAB)[address] POIKILOCYTOSIS (PRESENCE) IN BLOOD BY LIGHT MICROSCOPY Moderate Abnormal (none) [facility] Comment on above: Performed By: #### L [id number], [id number] ####Nut Feeder: DARELL CLEMENS ([phone])[facility] [place] (SBHLAB)[address] [place] [address] [place] POLYCHROMASIA IN BLOOD BY LIGHT MICROSCOPY Slight Abnormal (none) [facility] Comment on above: Performed By: #### L [id number], [id number] ####Nut Feeder: DARELL CLEMENS ([id number])[facility] [place] (SBHLAB)[address] [place] [address] [place] PROMYELOCYTES TOTAL PER COUNTED LEUKOCYTES BY MANUAL COUNT Normal [facility] Comment on above: Performed By: #### L [id number], [id number] ####Nut Feeder: DARELL CLEMENS ([phone])[facility] [place] (SBHLAB)[address] [place] [address] [place] RBC MORPHOLOGY IN BLOOD abnormal Normal [facility] Comment on above: Performed By: #### L [id number], [id number] ####Nut Feeder: DARELL CLEMENS ([phone])[facility] [place] (SBHLAB)[address] [place] [address] [place] SEGMENTED NEUTROPHILS (10*3/UL) IN BLOOD-CELLAVISION 7.3 10*3/uL Normal 1.8-7.5 [facility] Comment on above: Performed By: #### L [id number], [id number] ####Nut Feeder: DARELL CLEMENS ([phone])[facility] [place] (SBHLAB)[address] [place] [address] [place] SEGMENTED NEUTROPHILS/100 LEUKOCYTES-CE 89 % High 38-82 [facility] Comment on above: Performed By: #### L [id number], [id number] ####Nut Feeder: DARELL CLEMENS ([phone])[facility] (SBHLAB)[address] [place] [address] UNCLASSIFIED CELLS TOTAL PER COUNTED LEUKOCYTES BY MANUAL COUNT [facility] Comment on above: Performed By: #### L [id number], [id number] ####Nut Feeder: DARELL CLEMENS ([phone])[facility] (SBHLAB)[address] [place] [address] VARIANT LYMPHOCYTES TOTAL PER COUNTED LEUKOCYTES BY MANUAL COUNT [facility] Comment on above: Performed By: #### L [id number], [id number] ####Nut Feeder: DARELL MCCANNSHAYLA ([phone])[facility] (SBHLAB)[address] [place] [address] No Panel Informationon 11-10 Interpretation and review of laboratory results Abnormal [facility] Performed by: [facility], [address] [place] [address] CLIA ID: [id number] [facility] Interpretation and review of laboratory results Abnormal [facility] Performed by: [facility], [address] [place] [address] CLIA ID: [id number] [facility] Interpretation and review of laboratory results Abnormal [facility] Performed by: [facility], [address] [place] [address] CLIA ID: [id number] [facility] Interpretation and review of laboratory results Abnormal [facility] Performed by: [facility], [address] [place] [address] CLIA ID: [id number] [facility] Atypical Lymphocytes Manual [facility] Bands Manual 1 [facility] Basophils Manual [facility] Blasts Manual [facility] Eosinophils Manual 2 High 0 - 1 [facility] Interpretation and review of laboratory results Abnormal [facility] Lymphocytes Manual 6 [facility] Metamyelocytes Manual [facility] Monocytes Manual 2 [facility] Myelocytes Manual [facility] Neutrophils Manual 89 [facility] Promyelocytes Manual [facility] Unclassified Cells, Manual [facility] Nursing Noteon 11-10-2024 Nursing Note Normal [facility] Op Noteon 11-10-2024 Op Note Normal [facility] Progress Noteon 11-10-2024 Progress Note Normal [facility] 30on 11-09-2024 30 Normal [facility] 30 Normal [facility] [id number] 11-09-2024 [id number] Rounds this am DCP: [place] Symptomatic Anemia Hgb 6.6 on Eliquis Positive fecal occult blood test. I U PRBC given 6.6>7.5>7.2 Normal [facility] BASIC METABOLIC PANELon 10-16 Anion gap [Moles/Vol] 10 mmol/L Normal 3-13 [facility] Comment on above: Performed By: #### L [id number] ####Nut Feeder: DARELL CLEMENS ([phone])[facility] (SBHLAB)[address] Calcium [Mass/Vol] 7.8 mg/dL Low 8.8-10.0 [facility] Comment on above: Performed By: #### L [id number] ####Nut Feeder: DARELL CLEMENS ([phone])[facility]BGALL[facility] (SBHLAB)[address] [place] [address] [place] Chloride [Moles/Vol] 107 mmol/L Normal 98-107 [facility] Comment on above: Performed By: #### L [id number] ####Nut Feeder: DARELL CLEMENS ([phone])[facility] [place] (SBHLAB)[address] [place] [address] [place] CO2 [Moles/Vol] 21 mmol/L Low 23-31 [facility] Comment on above: Performed By: #### L [id number] ####Nut Feeder: DARELL CLEMENS ([phone])[facility] (SBHLAB)[address] [place] [address] [place] Creatinine [Mass/Vol] 0.77 mg/dL Normal 0.57-1.11 [facility] Comment on above: Performed By: #### L [id number] ####Nut Feeder: DARELL CLEMENS ([phone])[facility] ([facility])[address] [place] [address] [place] GLOMERULAR FILTRATION RATE ML/MIN/1.73 SQ M.PREDICTED 79.1 mL/min/1.73m*2 Normal >60.0 [facility] Comment on above: Result Comment: Calc ulation based on the Chronic Kidney Disease Epidemiology Collaboration (CKD-EPI) equation refit without adjustment for race Performed By: #### L [id number] ####Nut Feeder: DARELL CLEMENS ([phone])[facility] ([facility])[address] Glucose [Mass/Vol] 118 mg/dL High 82-115 [facility] Comment on above: Performed By: #### L [id number] ####Nut Feeder: DARELL CLEMENS ([phone])[facility] ([facility])[address] Potassium [Moles/Vol] 3.6 mmol/L Normal 3.5-5.1 [facility] Comment on above: Result Comment: [facility] potassium values may be up to 0.5 mmol/L lower than serum values. Performed By: #### L [id number] ####Nut Feeder: DARELL CLEMENS ([phone])[facility] ([facility])[address] [place] [address] [place] Sodium [Moles/Vol] 138 mmol/L Normal 136-145 [facility] Comment on above: Performed By: #### L [id number] ####Nut Feeder: DARELL CLEMENS ([phone])[facility] ([facility])[address] Urea nitrogen [Mass/Vol] 19 mg/dL Normal 9-23 [facility] Comment on above: Performed By: #### L [id number] ####Nut Feeder: DARELL CLEMENS ([phone])[facility]ENTER[facility] (SBHLAB)[address] [place] [address] Basic metabolic 1998 panelon 11-09-2024 Anion gap [Moles/Vol] 10 mmol/L 3 - 13 mmol/L [facility] Calcium [Mass/Vol] 7.8 mg/dL Low 8.8 - 10. 0 mg/dL [facility] Chloride [Moles/Vol] 107 mmol/L 98 - 10 7 mmol/L [facility] CO2 [Moles/Vol] 21 mmol/L Low 23 - 31 mmol/L [facility] Creatinine [Mass/Vol] 0.77 mg/dL 0.57 - 1.11 mg/dL [facility] GFR/1.73 sq M.predicted (S/P/Bld) [Vol rate/Area] 79.1 mL/min - PINF [facility] Comment on above: Calculation based on the Chronic Kidney Disease Epidemiology Collaboration (CKD-EPI) equation refit without adjustment for race Glucose [Mass/Vol] 118 mg/dL High 82 - 115 mg/dL [facility] Potassium [Moles/Vol] 3.6 mmol/L 3.5 - 5.1 mmol/L [facility] Comment on above: Plasma potassium kamryn ues may be up to 0.5 mmol/L lower than serum values. Sodium [Moles/Vol] 138 mmol/L 136 - 145 mmol/L [facility] Urea nitrogen [Mass/Vol] 19 mg/dL 9 - 23 mg/dL [facility] Consulton 11-09-2024 Consult Normal [facility] HEMOGLOBIN AND HEMATOCRIT, B LOODon 11-09-2024 Hematocrit (Bld) [Volume fraction] 26.5 % Low 35.0-47.0 [facility] Comment on above: Performed By: #### L [id number] ####Nut Feeder: DARELL CLEMENS ([phone])[facility] CENTERIndio ESPINOSA (SBHLAB)[address] [place] [address] Hemoglobin (Bld) [Mass/Vol] 8.1 g/dL Low 11.7-16.0 [facility] Comment on above: Performed By: #### L [id number] ####Nut Feeder: DARELL [phone])[facility]ENTERA [place] (SBHLAB)[address] Hematocrit (Bld) [Volume fraction] 24.6 % Low 35.0-47.0 [facility] Comment on above: Performed By: #### L [id number] ####Nut Feeder: DARELL CLEMENS ([phone])[facility]ENTERA [facility]BGALLUP [facility]DI[facility]ERN (SBHLAB)[address] Hemoglobin (Bld) [Mass/Vol] 7.9 g/dL Low 11.7-16.0 [facility] Comment on above: Performed By: #### L [id number] ####Nut Feeder: DARELL CLEMENS ([phone])[facility]ENTERA [facility]ON[facility] (SBHLAB)[address] [place] [address] Hematocrit (Bld) [Volume fraction] 22.6 % Low 35.0-47.0 [facility] Comment on above: Order Comment: Recom mend 1 hour post transfusion Performed By: #### L [id number] ####Nut Feeder: DARELL CLEMENS ([phone])[facility] CENTERIndio MEMBRENOGALLUP INDIAN MEDICAL CENTERChristi (SBHLAB)[address] [place] [address] Hemoglobin (Bld) [Mass/Vol] 7.2 g/dL Low 11.7-16.0 [facility] Comment on above: Order Comment: Recom mend 1 hour post transfusion Performed By: #### L [id number] ####Nut Feeder: DARELL CLEMENS ([phone])[facility]ENTERA [facility]BGALLUP [facility]DI[facility]ENTERN (SBHLAB)[address] [place] [address] Hemoglobin (Bld) [Mass/Vol]O rdered By: Tonny Narvaze on 11-09-2024 Hematocrit (Bld) [Volume fraction] 26.5 % Low 35.0 - 47.0 % [facility] Interpretation and review of laboratory results Abnormal [facility] Hemoglobin (Bld) [Mass/Vol]o n 11-09-2024 Hematocrit (Bld) [Volume fraction] 24.6 % Low 35.0 - 47.0 % [facility] Interpretation and review of laboratory results Abnormal [facility] Hemoglobin (Bld) [Mass/Vol]O rdered By: Melissa Baig on 11-09-2024 Hematocrit (Bld) [Volume fraction] 22.6 % Low 35.0 - 47.0 % [facility] Interpretation and review of laboratory results Abnormal [facility] IRON AND TIBCon 11-09-2024 IRON BINDING CAPACITY 256 ug/dL Normal 250-450 [facility] Comment on above: Performed By: #### L [id number] ####Nut Feeder: DARELL CLEMENS ([phone])[facility] (SBHLAB)[address] IRON SATURATION 7.4 % Low 20.0-50.0 [facility] Comment on above: Performed By: #### L [id number] ####Nut Feeder: DARELL CLEMENS ([phone])[facility] (SBHLAB)[address] IRON, TOTAL 19 ug/dL Low 50-170 [facility] Comment on above: Performed By: #### L [id number] ####Nut Feeder: DARELL CLEMENS ([phone])[facility] (SBHLAB)[address] Iron and Iron binding capaci ty panelon 11-09-2024 Iron [Mass/Vol] 19 ug/dL Low 50 - 170 ug/dL [facility] Iron binding capacity [Mass/Vol] 256 ug/dL 250 - 450 ug/dL [facility] Iron saturation [Mass fraction] 7.4 % Low 20.0 - 50.0 % [facility] Laboratory - Chemistry and C hemistry - challengeon 11-09-2024 Glucose [Mass/Vol] 161 mg/dL High 70 - 100 mg/dL [facility] Glucose [Mass/Vol] 129 mg/dL High 70 - 100 mg/dL [facility] Glucose [Mass/Vol] 238 mg/dL High 70 - 100 mg/dL [facility] Glucose [Mass/Vol] 190 mg/dL High 70 - 100 mg/dL [facility] Laboratory - Coagulationon 0 11-09-2024 aPTT Coag (PPP) [Time] 23.7 s 20.0 - 30.5 s [facility] INR Coag (PPP) [Relative time] 1.1 {INR} 0.9 - 1.1 [facility] Comment on above: Recommended Anticoag ulant Therapy: SEE BELOW ----- INR of 2.0 - 3.0 : - Prophylaxis of Venous Thrombosis (high-risk surgery) - Treatment of Venous Thrombosis - Treatment of Pulmonary Embolism (Includes tissue heart valves, Acute Myocardial Infarction to prevent systemic embolism, Valvular Heart Disease, and Atrial Fibrillation) ----- INR of 2.5 - 3.5 : - Mechanical Prosthetic Valves (high risk) - If oral anticoagulant therapy is used to prevent Myocardial Infarction PT Coag (Bld) [Time] 11.8 s 9.0 - 12.0 s [facility] Laboratory - Hematology and Cell countsOrdered By: Tonny Narvaez on 11-09-2024 Hemoglobin (Bld) [Mass/Vol] 8.1 g/dL Low 11.7 - 16.0 g/dL [facility] Laboratory - Hematology and Cell countson 11-09-2024 Hemoglobin (Bld) [Mass/Vol] 7.9 g/dL Low 11.7 - 16.0 g/dL [facility] Laboratory - Hematology and Cell countsOrdered By: Melissa Baig on 11-09-2024 Hemoglobin (Bld) [Mass/Vol] 7.2 g/dL Low 11.7 - 16.0 g/dL [facility] No Panel Informationon 11-09 Interpretation and review of laboratory results Abnormal [facility] Performed by: [facility], [address] [place] [id number] CLIA ID: [id number] [facility] Interpretation and review of laboratory results Abnormal [facility] Performed by: [facility], [address] [place] [id number] CLIA ID: [id number] [facility] Interpretation and review of laboratory results Abnormal [facility] Performed by: [facility], [address] [place] [id number] CLIA ID: [id number] [facility] Interpretation and review of laboratory results Abnormal [facility] Performed by: [facility], [address] [place] [id number] CLIA ID: [id number] [facility] Interpretation and review of laboratory results Abnormal [facility] Interpretation and review of laboratory results Normal [facility] PROTIME AND APTTon aPTT Coag (Bld) [Time] 23.7 s Normal 20.0-30.5 [facility] Comment on above: Performed By: #### L [id number] ####Nut Feeder: DARELL CLEMENS ([phone])[facility] ([facility])[address] [place] [address] INR Coag (PPP) [Relative time] 1.1 {INR} Normal 0.9-1.1 [facility] Comment on above: Result Comment: Jose mmended Anticoagulant Therapy: SEE BELOW----- INR of 2.0 - 3.0 : - Prophylaxis of Venous Thrombosis (high-risk surgery) - Treatment of Venous Thrombosis - Treatment of Pulmonary Embolism (Includes tissue heart valves, Acute Myocardial Infarction to prevent systemic embolism, Valvular Heart Disease, and Atrial Fibrillation)----- INR of 2.5 - 3.5 : - Mechanical Prosthetic Valves (high risk) - If oral anticoagulant therapy is used to prevent Myocardial Infarction Performed By: #### L [id number] ####Nut Feeder: DARELL CLEMENS ([phone])[facility] ([facility])[address] [place] [address] PT Coag (PPP) [Time] 11.8 s Normal 9.0-12.0 [facility] Comment on above: Performed By: #### L [id number] ####Nut Feeder: DARELL CLEMENS ([phone])[facility] ([facility])[address] [place] [address] Progress Noteon 11-09-2024 Progress Note Normal [facility] Progress Note Normal [facility] 30on 11-08-2024 30 Normal [facility] BLOOD TYPE AND SCREEN GELon 11-08-2024 ABO GROUPING O Normal [facility] Comment on above: Performed By: #### L [id number] ####Nut Feeder: DARELL CLEMENS ([phone])[facility] ([facility])[address] RH TYPE IN BLOOD Positive Normal [facility] Comment on above: Performed By: #### L [id number] ####Nut Feeder: DARELL CLEMENS ([phone])[facility] ([facility])[address] Blood type and Crossmatch pa hamzah (Bld)on 11-08-2024 ABO group Nom (Bld) O [facility] Blood group antibody screen GEL Ql Negative [facility] [employer] D Ag Ql (RBC) Positive [facility] Healt h [facility] [employer] CBC W Auto Differential tiffaniee l (Bld)Ordered By: Morena Godwin on 11-08-2024 Basophils (Bld) [#/Vol] 0.1 10*3/uL 0.0 - 0.2 10*3/uL [facility] [employer] Basophils/100 WBC (Bld) 0.5 % 0.0 - 2.0 % [facility] [employer] Eosinophils (Bld) [#/Vol] 0.2 10*3/uL 0.0 - 0.5 10*3/uL [facility] [employer] Eosinophils/100 WBC (Bld) 1.4 % 0.0 - 6.0 % [facility] [employer] Erythrocyte distribution width (RBC) [Ratio] 16 % High 11.5 - 15.0 % [facility] [employer] Hematocrit (Bld) [Volume fraction] 21.3 % Low 35.0 - 47.0 % [facility] Hemoglobin (Bld) [Mass/Vol] 6.6 g/dL Critically low 11.7 - 16.0 g/dL [facility] [employer] Immature granulocytes (Bld) [#/Vol] 0.3 10*3/uL High NINF - 0.1 10*3/uL [facility] [employer] Immature granulocytes/100 WBC (Bld) 2.5 % High 0.0 - 2.0 % [facility] [employer] Interpretation and review of laboratory results Abnormal [facility] [employer] Lymphocytes (Bld) [#/Vol] 0.9 10*3/uL Low 1.0 - 4.3 10*3/uL [facility] [employer] Lymphocytes/100 WBC (Bld) 7.8 % Low 15.0 - 45.0 % [facility] MCH (RBC) [Entitic mass] 27.6 pg 26.0 - 34.0 pg [facility] MCHC (RBC) [Mass/Vol] 31 % 30.5 - 36.0 % [facility] MCV (RBC) [Entitic vol] 89.1 fL 77.0 - 99.0 fL [facility] Monocytes (Bld) [#/Vol] 1.1 10*3/uL High 0.0 - 0.9 10*3/uL [facility] Monocytes/100 WBC (Bld) 9.6 % 5.0 - 13.0 % [facility] Neutrophils (Bld) [#/Vol] 8.6 10*3/uL High 1.8 - 7.5 10*3/uL [facility] Neutrophils/100 WBC (Bld) 78.2 % 38.0 - 82.0 % [facility] Nucleated RBC/100 WBC (Bld) [Ratio] 0.3 % [facility] Platelet mean volume (Bld) [Entitic vol] 8.7 fL Low 9.0 - 12.7 fL [facility] Platelets (Bld) [#/Vol] 298 10*3/uL 140 - 440 10*3/uL [facility] RBC (Bld) [#/Vol] 2.39 10*6/uL Low 3.80 - 5.2 0 10*6/uL [facility] WBC (Bld) [#/Vol] 11 10*3/uL High 3.6 - 10.7 10*3/uL [facility] CBC W Auto Differential pane l (Bld)on 11-08-2024 Basophils (Bld) [#/Vol] 32 10*3/uL [facility] Basophils/100 WBC (Bld) 0.3 % [facility] Eosinophils (Bld) [#/Vol] 127 10*3/uL [facility] Eosinophils/100 WBC (Bld) 1.2 % [facility] Erythrocyte distribution width (RBC) [Ratio] 15.4 % High 11.0 - 15.0 % [facility] Hematocrit (Bld) [Volume fraction] 22.9 % Low 35.0 - 45.0 % [facility] Hemoglobin (Bld) [Mass/Vol] 7.1 g/dL Low 11.7 - 15.5 g/dL [facility] Lymphocytes (Bld) [#/Vol] 1738 10*3/uL [facility] [employer] Lymphocytes/100 WBC (Bld) 16.4 % [facility] [employer] MCH (RBC) [Entitic mass] 28.1 pg 27.0 - 33.0 pg [facility] MCHC (RBC) [Mass/Vol] 31 g/dL Low 32.0 - 36.0 g/dL [facility] Comment on above: For adults, a slight decrease in the calculated MCHC value (in the range of 30 to 32 g/dL) is most likely not clinically significant; however, it should be interpreted with caution in correlation with other red cell parameters and the patient's clinical condition. MCV (RBC) [Entitic vol] 90.5 fL 80.0 - 100.0 fL [facility] [employer] Monocytes (Bld) [#/Vol] 922 10*3/uL [facility] Monocytes/100 WBC (Bld) 8.7 % [facility] Neutrophils (Bld) [#/Vol] 7780 10*3/uL [facility] [employer] Neutrophils/100 WBC (Bld) 73.4 % [facility] [employer] Platelet mean volume (Bld) [Entitic vol] 9.3 fL 7.5 - 12.5 fL [facility] [employer] Platelets (Bld) [#/Vol] 406 10*3/uL High [facility] RBC (Bld) [#/Vol] 2.53 10*6/uL Low [facility] Service comment (Unsp spec) [Interp] [facility] Comment on above: Review of peripheral smear confirms automated results. WBC (Bld) [#/Vol] 10.6 10*3/uL [facility] CBC WITH AUTO DIFFERENTIALon 11-08-2024 Basophils (Bld) [#/Vol] 0.1 10*3/uL Normal 0.0-0.2 [facility] Comment on above: Performed By: #### L [id number] ####Nut Feeder: DARELL CLEMENS ([phone])[facility] (SBAB)[address] [place] [address] Basophils/100 WBC (Bld) 0.5 % Normal 0.0-2.0 [facility] Comment on above: Performed By: #### L [id number] ####Nut Feeder: DARELL MCCANNSHAYLA ([phone])[facility]ENTERA [facility]BGALL[place] [facility]DI[facility] CENTERN (SBHLAB)[address] [place] [address] Eosinophils (Bld) [#/Vol] 0.2 10*3/uL Normal 0.0-0.5 [facility] Comment on above: Performed By: #### L [id number] ####Nut Feeder: DARELL MCCANNSHAYLA ([phone])[facility]ENTERA [facility]ALL[facility]ERN (SBAB)[address] Eosinophils/100 WBC (Bld) 1.4 % Normal 0.0-6.0 [facility] Comment on above: Performed By: #### L [id number] ####Nut Feeder: DARELL BABCOCKSCOTT ([phone])[facility] ([facility])[address] [place] [address] Erythrocyte distribution width (RBC) [Ratio] 16.0 % High 11.5-15.0 [facility] Comment on above: Performed By: #### L [id number] ####Nut Feeder: DARELL MCCANNSHAYLA ([phone])[facility] ([facility])[address] [place] [address] Hematocrit (Bld) [Volume fraction] 21.3 % Low 35.0-47.0 [facility] Comment on above: Performed By: #### L [id number] ####Nut Feeder: DARELL CLEMENS ([phone])[facility] ([facility])[address] [place] [address] Hemoglobin (Bld) [Mass/Vol] 6.6 g/dL Critically low 11.7-16.0 [facility] Comment on above: Performed By: #### L [id number] ####Nut Feeder: DARELL CLEMENS ([phone])[facility] (SBAB)[address] [place] [address] IMMATURE GRANS % 2.5 % High 0.0-2.0 [facility] Comment on above: Performed By: #### L [id number] ####Nut Feeder: DARELL CLEMENS ([phone])[facility] CENTERIndio MEMBRENOGALLUP INDIAN MEDICAL CENTERChristi (SBHLAB)[address] IMMATURE GRANS ABSOLUTE 0.3 10*3/uL High <0.1 [facility] Comment on above: Performed By: #### L [id number] ####Nut Feeder: DARELL CLEMENS ([phone])[facility] CENTERIndio MEMBRENOHONORHE[facility] (SBHLAB)[address] Lymphocytes (Bld) [#/Vol] 0.9 10*3/uL Low 1.0-4.3 [facility] Comment on above: Performed By: #### L [id number] ####Nut Feeder: DARELL CLEMENS ([phone])[facility] CENTERIndio MEMBRENOHONORHE[facility] (SBHLAB)[address] [place] [address] Lymphocytes/100 WBC (Bld) 7.8 % Low 15.0-45.0 [facility] Comment on above: Performed By: #### L [id number] ####Nut Feeder: DARELL CLEMENS ([phone])[facility] CENTERIndio MEM[facility]ENOHONOR[facility] (SBHLAB)[address] MCH (RBC) [Entitic mass] 27.6 pg Normal 26.0-34.0 [facility] Comment on above: Performed By: #### L [id number] ####Nut Feeder: DARELL CLEMENS ([phone])[facility] CENTERIndio MEMBRENOHON[facility] (SBHLAB)[address] MCHC 31.0 % Normal 30.5-36.0 [facility] Comment on above: Performed By: #### L [id number] ####Nut Feeder: DARELL CLEMENS ([phone])[facility] CENTERIndio [facility]ENOHON[facility] (SBHLAB)[address] MCV (RBC) [Entitic vol] 89.1 fL Normal 77.0-99.0 [facility] Comment on above: Performed By: #### L [id number] ####Nut Feeder: DARELL [phone])[facility] [place] (SBHLAB)[address] Monocytes (Bld) [#/Vol] 1.1 10*3/uL High 0.0-0.9 [facility] Comment on above: Performed By: #### L [id number] ####Nut Feeder: DARELL CLEMENS ([phone])[facility] [place] (SBHLAB)[address] Monocytes/100 WBC (Bld) 9.6 % Normal 5.0-13.0 [facility] Comment on above: Performed By: #### L [id number] ####Nut Feeder: DARELL CLEMENS ([phone])[facility]ENTERA [place] (SBHLAB)[address] NEUTROPHILS ABSOLUTE 8.6 10*3/uL High 1.8-7.5 [facility] Comment on above: Performed By: #### L [id number] ####Nut Feeder: DARELL CLEMENS ([phone])[facility]ENTERA [place] (SBHLAB)[address] Neutrophils/100 WBC (Bld) 78.2 % Normal 38.0-82.0 [facility] Comment on above: Performed By: #### L [id number] ####Nut Feeder: DARELL CLEMENS ([phone])[facility]A [place] (SBHLAB)[address] NRBC 0.3 /100 WBCs Normal 0.0-2.0 [facility] Comment on above: Performed By: #### L [id number] ####Nut Feeder: DARELL CLEMENS ([phone])[facility]A [place] (SBHLAB)[address] Platelet mean volume (Bld) [Entitic vol] 8.7 fL Low 9.0-12.7 [facility] Comment on above: Performed By: #### L [id number] ####Nut Feeder: DARELL CLEMENS ([phone])[facility]YA MCCALLUMN (SBHLAB)[address] Platelets (Bld) [#/Vol] 298 10*3/uL Normal 140-440 [facility] Comment on above: Performed By: #### L [id number] ####Nut Feeder: DARELL CLEMENS ([phone])[facility] CENTERIndio MEMBRENOGALLUP INDI[facility] MEDICAL CENTERN (SBHLAB)[address] RBC (Bld) [#/Vol] 2.39 10*6/uL Low 3.80-5.20 [facility] Comment on above: Performed By: #### L [id number] ####Nut Feeder: DARELL MCCANNSHAYLA ([phone])[facility] CENTERIndio MEMBRENOGALLUP [facility]DI[facility]ENTERN (SBHLAB)[address] WBC (Bld) [#/Vol] 11.0 10*3/uL High 3.6-10.7 [facility] Comment on above: Performed By: #### L [id number] ####Nut Feeder: DARELL CLEMENS ([phone])[facility] CENTERIndio MEMBRENOGALLUP INDI[facility] MEDICAL CENTERN (SBHLAB)[address] COMPREHENSIVE METABOLIC PANE Roni 11-08-2024 Albumin [Mass/Vol] 2.9 g/dL Low 3.4-4.8 [facility] Comment on above: Performed By: #### L [id number], LAB17, [id number] ####Nut Feeder: DARELL CLEMENS ([phone])[facility] CENTERIndio MEMBRENOTONEN (SBHLAB)[address] ALP [Catalytic activity/Vol] 49 U/L Normal 40-150 [facility] Comment on above: Performed By: #### L [id number], LAB17, [id number] ####Nut Feeder: DARELL CLEMENS ([phone])[facility] CENTERIndio MEMBRENOGALLUP INDI[facility] MEDICAL CENTERN (SBHLAB)[address] ALT [Catalytic activity/Vol] 49 U/L High <30 [facility] Comment on above: Performed By: #### James [id number], LAB17, [id number] ####Nut Feeder: DARELL CLEMENS ([phone])[facility]ENTERA [place] (SBHLAB)[address] Anion gap [Moles/Vol] 16 mmol/L High 3-13 [facility] Comment on above: Performed By: #### James [id number], LAB17, [id number] ####Nut Feeder: DARELL CLEMENS ([phone])[facility]ENTERA [facility]BGALLUP [facility]DI[facility]ENTERN (SBHLAB)[address] AST [Catalytic activity/Vol] 32 U/L Normal <34 [facility] Comment on above: Performed By: #### James [id number], LAB17, [id number] ####Nut Feeder: DARELL CLEMENS ([phone])[facility]ENTERA [facility] (SBHLAB)[address] Bilirubin [Mass/Vol] 0.6 mg/dL Normal <1.2 [facility] Comment on above: Performed By: #### James [id number], LAB17, [id number] ####Nut Feeder: DARELL CLEMENS ([phone])[facility]ENTERA [facility] (SBHLAB)[address] Calcium [Mass/Vol] 8.5 mg/dL Low 8.8-10.0 [facility] Comment on above: Performed By: #### James [id number], LAB17, [id number] ####Nut Feeder: DARELL CLEMENS ([phone])[facility]ENTERA [place] (SBHLAB)[address] [place] [address] [place] Chloride [Moles/Vol] 105 mmol/L Normal 98-107 [facility] Comment on above: Performed By: #### L [id number], LAB17, [id number] ####Nut Feeder: DARELL CLEMENS ([phone])[facility]ENTERA [facility]BGALLUP INDI[facility] CENTERN (SBHLAB)[address] [place] [address] [place] CO2 [Moles/Vol] 18 mmol/L Low 23-31 [facility] Comment on above: Performed By: #### L [id number], LAB17, [id number] ####Nut Feeder: DARELL CLEMENS ([phone])[facility] CENTERIndio MCCALLUMChristi (SBHLAB)[address] Creatinine [Mass/Vol] 0.91 mg/dL Normal 0.57-1.11 [facility] Comment on above: Performed By: #### L [id number], LAB17, [id number] ####Nut Feeder: DARELL CLEMENS ([phone])[facility] CENTERIndio [facility] (SBHLAB)[address] GLOMERULAR FILTRATION RATE ML/MIN/1.73 SQ M.PREDICTED 64.7 mL/min/1.73m*2 Normal >60.0 [facility] Comment on above: Result Comment: Calc ulation based on the Chronic Kidney Disease Epidemiology Collaboration (CKD-EPI) equation refit without adjustment for race Performed By: #### L [id number], LAB17, [id number] ####Nut Feeder: DARELL CLEMENS ([phone])[facility] CENTERIndio [facility] (SBHLAB)[address] Glucose [Mass/Vol] 152 mg/dL High 82-115 [facility] Comment on above: Performed By: #### L [id number], LAB17, [id number] ####Nut Feeder: DARELL CLEMENS ([phone])[facility] CENTERIndio MEMBRENOGALLUP INDI[facility] MED[facility] CENTERN (SBHLAB)[address] Potassium [Moles/Vol] 3.9 mmol/L Normal 3.5-5.1 [facility] [facility] Comment on above: Result Comment: [facility] potassium values may be up to 0.5 mmol/L lower than serum values. Performed By: #### L [id number], [id number], [id number] ####Nut Feeder: DARELL CLEMENS ([phone])[facility] CENTERIndio MEMBRENOHON[facility] (SBHLAB)[address] Protein [Mass/Vol] 5.5 g/dL Low 6.4-8.3 [facility] Comment on above: Performed By: #### L [id number], [id number], [id number] ####Nut Feeder: DARELL CLEMENS ([phone])[facility] CENTERIndio MEMBRENOGALLUP INDIAN MEDICAL CENTERChristi (SBHLAB)[address] Sodium [Moles/Vol] 139 mmol/L Normal 136-145 [facility] Comment on above: Performed By: #### L [id number], [id number], [id number] ####Nut Feeder: DARELL CLEMENS ([phone])[facility] CENTERIndio BOL[place]AR (SBHLAB)[address] Urea nitrogen [Mass/Vol] 23 mg/dL Normal 9-23 [facility] Comment on above: Performed By: #### L [id number], [id number], [id number] ####Nut Feeder: DARELL CLEMENS ([phone])[facility] CENTERIndio [place] (SBHLAB)[address] HEAD WO IV CONTRASTon CT HEAD WO IV CONTRAST Normal [facility] CT Head WO contraston 2024 No evidence of an acute intracranial process. Report Dictated on Electronically Signed By: Amanuel Rosas MD Electronically Signed Date/Time: 11/08/2024 2:36 PM [facility] Patient Name: [place] 1945 [place] [id number] Exam Date/Time: 11/08/2024 14:05 Procedure: CT HEAD WO IV CONTRAST Ordering Provider: ALVARADO FELIX Reason For Exam: dizziness CT HEAD WITHOUT CONTRAST CLINICAL INDICATION: Dizziness Axial noncontrast CT images of the brain were obtained. Coronal and sagittal reconstructions were also made available for interpretation. Dose reduction was employed with automated exposure control. COMPARISON: None. FINDINGS: Mild diffuse cortical volume loss. Nonspecific periventricular white matter hypodensities likely reflect areas of small vessel ischemic change in a patient of this age. No high attenuation material is seen to suggest hemorrhage. No definite evidence for acute cortical infarction. No midline shift or mass effect is noted. Unremarkable calvarium. The paranasal sinuses are clear. Atherosclerotic calcification of the carotid siphons is noted. [facility] Amanuel Rosas MD - 11/08/2024 Patient Name: ROLANDO PETERS : 1945 [place] [facility] [id number] Exam Date/Time: 11/08/2024 14:05 Procedure: CT HEAD WO IV CONTRAST Ordering Provider: ALVARADO FELIX Reason For Exam: dizziness CT HEAD WITHOUT CONTRAST CLINICAL INDICATION: Dizziness Axial noncontrast CT images of the brain were obtained. Coronal and sagittal reconstructions were also made available for interpretation. Dose reduction was employed with automated exposure control. COMPARISON: None. FINDINGS: Mild diffuse cortical volume loss. Nonspecific periventricular white matter hypodensities likely reflect areas of small vessel ischemic change in a patient of this age. No high attenuation material is seen to suggest hemorrhage. No definite evidence for acute cortical infarction. No midline shift or mass effect is noted. Unremarkable calvarium. The paranasal sinuses are clear. Atherosclerotic calcification of the carotid siphons is noted. IMPRESSION: No evidence of an acute intracranial process. Report Dictated on Electronically Signed By: Amanuel Rosas MD Electronically Signed Date/Time: 11/08/2024 2:36 PM EDT [facility] Radiology Study observation (narrative) [facility] alth CT Head WO contrastOrdered B y: Amanuel Rosas on 11-08-2024 [facility] Work Phone: Cobalamin (Vitamin B12) [Mas s/Vol]on 11-08-2024 Interpretation and review of laboratory results Normal [facility] Comprehensive metabolic 1998 panelon 11-08-2024 Albumin [Mass/Vol] 2.9 g/dL Low 3.4 - 4.8 g/dL [facility] ALP [Catalytic activity/Vol] 49 U/L 40 - 150 U/L [facility] ALT [Catalytic activity/Vol] 49 U/L High NINF - 30 U/L [facility] Anion gap [Moles/Vol] 16 mmol/L High 3 - 13 mmol/L [facility] AST [Catalytic activity/Vol] 32 U/L NINF - 34 U/L [facility] Bilirubin [Mass/Vol] 0.6 mg/dL NINF - 1.2 mg/dL [facility] Calcium [Mass/Vol] 8.5 mg/dL Low 8.8 - 10. 0 mg/dL [facility] Chloride [Moles/Vol] 105 mmol/L 98 - 10 7 mmol/L [facility] CO2 [Moles/Vol] 18 mmol/L Low 23 - 31 mmol/L [facility] Creatinine [Mass/Vol] 0.91 mg/dL 0.57 - 1.11 mg/dL [facility] GFR/1.73 sq M.predicted (S/P/Bld) [Vol rate/Area] 64.7 mL/min - PINF [facility] Comment on above: Calculation based on the Chronic Kidney Disease Epidemiology Collaboration (CKD-EPI) equation refit without adjustment for race Glucose [Mass/Vol] 152 mg/dL High 82 - 115 mg/dL [facility] Interpretation and review of laboratory results Abnormal [facility] Potassium [Moles/Vol] 3.9 mmol/L 3.5 - 5.1 mmol/L [facility] Comment on above: Plasma potassium kamryn ues may be up to 0.5 mmol/L lower than serum values. Protein [Mass/Vol] 5.5 g/dL Low 6.4 - 8.3 g/dL [facility] Sodium [Moles/Vol] 139 mmol/L 136 - 145 mmol/L [facility] Urea nitrogen [Mass/Vol] 23 mg/dL 9 - 23 mg/dL [facility] Albumin [Mass/Vol] 3.9 g/dL 3.6 - 5.1 g/dL [facility] Albumin/Globulin [Mass ratio] 1.9 {ratio} [facility] ALP [Catalytic activity/Vol] 55 U/L 37 - 153 U/L [facility] ALT [Catalytic activity/Vol] 66 U/L High 6 - 29 U/L [facility] AST [Catalytic activity/Vol] 102 U/L High 10 - 35 U/L [facility] Bilirubin [Mass/Vol] 0.7 mg/dL 0.2 - 1 .2 mg/dL [facility] Calcium [Mass/Vol] 9 mg/dL 8.6 - 10. 4 mg/dL [facility] Chloride [Moles/Vol] 103 mmol/L 98 - 11 0 mmol/L [facility] [employer] CO2 [Moles/Vol] 23 mmol/L 20 - 32 mmol/L [facility] Creatinine [Mass/Vol] 0.88 mg/dL 0.60 - 1.00 mg/dL [facility] GFR/1.73 sq M.predicted among non-blacks MDRD (S/P/Bld) [Vol rate/Area] 67 mL/min/{1.73_m2} > OR = 60 mL/min/1.73m 2 [facility] [employer] Globulin (S) [Mass/Vol] 2.1 g/dL [facility] Glucose [Mass/Vol] 103 mg/dL High 65 - 99 mg/dL [facility] Comment on above: Fasting reference interval For someone without known diabetes, a glucose value between 100 and 125 mg/dL is consistent with prediabetes and should be confirmed with a follow-up test. Potassium [Moles/Vol] 4.7 mmol/L 3.5 - 5.3 mmol/L [facility] Protein [Mass/Vol] 6 g/dL Low 6.1 - 8.1 g/dL [facility] Sodium [Moles/Vol] 136 mmol/L 135 - 146 mmol/L [facility] Urea nitrogen [Mass/Vol] 24 mg/dL 7 - 25 mg/dL [facility] Urea nitrogen/Creatinine [Mass ratio] SEE NOTE: [facility] Comment on above: Not Reported: BUN an d Creatinine are within reference range. ECG 12-LEADon 11-08-2024 ECG 12-LEAD IMPRESSION: EKG shows 72 bpm, no acute ST elevations or depressions. QTc normal. Interpreted by me. Electronically Signed On 11-08-2024 18:41:28 EDT by Ned Alvarado Normal [facility] ED Provider Noteon ED Provider Note Normal [facility] HEMOGLOBIN AND HEMATOCRIT, B LOODon 11-08-2024 Hematocrit (Bld) [Volume fraction] 23.2 % Low 35.0-47.0 [facility] Comment on above: Performed By: #### L [id number] ####Nut Feeder: DARELL CLEMENS ([phone])[facility]ITALANSHUL (SBAB)[address] [place] [address] Hemoglobin (Bld) [Mass/Vol] 7.5 g/dL Low 11.7-16.0 [facility] Comment on above: Performed By: #### L [id number] ####Nut Feeder: DARELL CLEMENS ([phone])[facility])[address] [place] [address] HIGH SENSITIVITY TROPONIN, S ERIAL BASELINEon 11-08-2024 TROPONIN HS SERIAL BASELINE 12 ng/L Normal <=14 [facility] Comment on above: Result Comment: In i ndividuals presenting with symptoms > 2h, a baseline troponin <= 5 ng/L suggests acutecardiac injury is unlikely and further serial testing is generally not indicated. Performed By: #### L [id number], [id number], [id number] ####Nut Feeder: DARELL CLEMENS ([phone])[facility])[address] [place] [address] HIGH SENSITIVITY TROPONIN, S ERIAL, SECOND TESTon 11-08-2024 2H TROPONIN HS (SERIAL 2ND TROPONIN) 11 ng/L Normal <=14 [facility] Comment on above: Result Comment: 2h t roponin (2nd troponin) samples collected between 1h 40 min and 2h and 20 min of the baseline collection time can be utilized to interpret delta troponins as per [facility] algorithms. Samples collected outside this timeframe need to be interpreted clinically.Rising or falling troponin delta below 2 ng/L as compared to baseline value suggests thatacute cardiac injury is unlikely. Performed By: #### L [id number], [id number] ####Nut Feeder: DARELL CLEMENS ([phone])[facility])[address] [place] [address] Hemoglobin (Bld) [Mass/Vol]o n 11-08-2024 Hematocrit (Bld) [Volume fraction] 23.2 % Low 35.0 - 47.0 % [facility] Interpretation and review of laboratory results Abnormal [facility] - Chemistry and C hemistry - challengeon 11-08-2024 Cobalamin (Vitamin B12) [Mass/Vol] 426 pg/mL 213 - 816 pg/mL [facility] Laboratory - Hematology and Cell countson 11-08-2024 Hemoglobin (Bld) [Mass/Vol] 7.5 g/dL Low 11.7 - 16.0 g/dL [facility] Lipid 1996 panelon Cholesterol [Mass/Vol] 129 mg/dL NINF - 200 mg/dL [facility] Cholesterol in HDL [Mass/Vol] 64 mg/dL > OR = 50 [facility] Cholesterol in LDL [Mass/Vol] 40 mg/dL mg/dL (calc) [facility] Comment on above: Reference range: <10 0 Desirable range <100 mg/dL for primary prevention; <70 mg/dL for patients with CHD or diabetic patients with > or = 2 CHD risk factors. LDL-C is now calculated using the Jefferson calculation, which is a validated novel method providing better accuracy than the Friedewald equation in the estimation of LDL-C. Balbir OLSON et al. SARAH. 2013;310(19): 3146-2097 (http://education.Bluetector.Kmsocial/faq/IVV860) Cholesterol non HDL [Mass/Vol] 65 mg/dL [facility] Comment on above: For patients with di abetes plus 1 major ASCVD risk factor, treating to a non-HDL-C goal of <100 mg/dL (LDL-C of <70 mg/dL) is considered a therapeutic option. Cholesterol.total/Lulu sterol in HDL [Mass ratio] 2 {ratio} [facility] Triglyceride [Mass/Vol] 167 mg/dL High NINF - 150 mg/dL [facility] Lower GI hemoglobin spec 1 I A Ql (Stl)Ordered By: Jaqueline Cadr on 11-08-2024 Fecal occult blood Positive Abnormal Negative [facility] Interpretation and review of laboratory results Abnormal [facility] Methodology: Immunoassay [facility] NT PRO BNPon 11-08-2024 Natriuretic peptide B (Bld) [Mass/Vol] 3683 pg/mL High <450 [facility] Comment on above: Performed By: #### L [id number], [id number], [id number] ####Nut Feeder: DARELL CLEMENS ([phone])[facility] (SBAB)[address] [place] [address] Natriuretic peptide B [Mass/ Vol]on 11-08-2024 Interpretation and review of laboratory results Abnormal [facility] Natriuretic peptide B (Bld) [Mass/Vol] 3683 pg/mL High NINF - 450 pg/mL [facility] No Panel Informationon 11-08 P [place] 75 degrees [facility] DE Interval 148 ms [facility] QRS [place] 64 degrees [facility] QRSD Interval 77 ms [facility] Healt h QT Interval 401 ms [facility] QTC Interval 438 ms [facility] T Wave [place] 66 degrees [facility] EKG shows 72 bpm, no acute ST elevations or depressions. QTc normal. Interpreted by me. Electronically Signed On 11-08-2024 18:41:28 EDT by Ned Martin, - 11/08/2024 IMPRESSION: EKG shows 72 bpm, no acute ST elevations or depressions. QTc normal. Interpreted by me. Electronically Signed On 11-08-2024 18:41:28 EDT by Ned Alvarado [facility] Blood Expiration Date [id number] [facility] Crossmatch interpretation COMP [facility] Dispense Status Transfused [facility] Product Blood Type 5100 [facility] PRODUCT CODE [id number] [facility] Health Unit ABO O [facility] Unit Number [id number] [facility] Unit RH Positive [facility] Unit Volume 300 mL [facility] 2h Troponin HS (Serial 2nd Troponin) 11 ng/L NINF - 14 ng/L [facility] Comment on above: 2h troponin (2nd tro ponin) samples collected between 1h 40 min and 2h and 20 min of the baseline collection time can be utilized to interpret delta troponins as per [facility] algorithms. Samples collected outside this timeframe need to be interpreted clinically. Rising or falling troponin delta below 2 ng/L as compared to baseline value suggests that acute cardiac injury is unlikely. Interpretation and review of laboratory results Normal [facility] Interpretation and review of laboratory results Normal [facility] Troponin HS Serial Baseline 12 ng/L NINF - 14 ng/L [facility] Comment on above: In individuals prese nting with symptoms > 2h, a baseline troponin <= 5 ng/L suggests acute cardiac injury is unlikely and further serial testing is generally not indicated. [facility] Interpretation and review of laboratory results Abnormal [facility] OCCULT BLOOD, STOOLon 2024 OCCULT BLOOD, STOOL FECAL OCCULT, STOOL (A) Reference Positive Negative ORDER COMMENTS: (A) Methodology: Immunoassay Normal [facility] Comment on above: Performed By: #### L [id number] ####Nut Feeder: DARELL CLEMENS ([phone])[facility] (SBHLAB)[address] VITAMIN B12on 11-08-2024 Cobalamin (Vitamin B12) [Mass/Vol] 426 pg/mL Normal 213-816 [facility] Comment on above: Performed By: #### L [id number], [id number] ####Nut Feeder: DARELL BABCOCKSCOTT ([phone])[facility] (SBHLAB)[address] Vital signson 11-08-2024 Heart rate 72 /min bpm [facility] XR Chest Single viewon 11-08 No acute cardiopulmonary process. Report Dictated on Electronically Signed By: Amanuel Rosas MD Electronically Signed Date/Time: 11/08/2024 2:42 PM EDT [facility] Patient Name: ROLANDO PETERS : 1945 Exam Date/Time: 11/08/2024 14:12 Procedure: XR CHEST 1 VIEW Ordering Provider: ALVARADO FELIX Reason For Exam: fatigue CHEST X-RAY AP CLINICAL INDICATION: Fatigue AP radiograph of the chest was obtained. COMPARISON: 10/21/2024 FINDINGS: The cardiac silhouette is within normal limits. 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 Surgical clips overlie the lower right chest wall. No focal consolidation or opacification is seen within the lungs. No pleural effusion or pneumothorax is identified. Degenerative changes of the thoracic spine are noted. [facility] Amaunel Rosas MD - 11/08/2024 Patient Name: ROLANDO PETERS : 1945 Exam Date/Time: 11/08/2024 14:12 Procedure: XR CHEST 1 VIEW Ordering Provider: ALVARADO FELIX Reason For Exam: fatigue CHEST X-RAY AP CLINICAL INDICATION: Fatigue AP radiograph of the chest was obtained. COMPARISON: 10/21/2024 FINDINGS: The cardiac silhouette is within normal limits. 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 Surgical clips overlie the lower right chest wall. No focal consolidation or opacification is seen within the lungs. No pleural effusion or pneumothorax is identified. Degenerative changes of the thoracic spine are noted. IMPRESSION: No acute cardiopulmonary process. Report Dictated on Electronically Signed By: Amanuel Rosas MD Electronically Signed Date/Time: 11/08/2024 2:42 PM EDT [facility] Radiology Study observation (narrative) Riya estes 36on 11-07-2024 36 Rx signed Normal [facility] Progress Noteon 11-07-2024 Progress Note Normal [facility] Progress Note Normal [facility] Progress Note Normal [facility] Progress Note -08/2024 received autoPAP, and reports compliance; encouraged absolute compliance Normal [facility] Progress Note Target LDL <70. LDL 62 (11/2023) - Cont zetia - Cont crestor - Cont Vascepa - lipids due in November; she fasted today, so I will place that order -Cont lifestyle mgt given elev TG; if much higher over time, consider Tricor Normal [facility] Progress Note Moderate. Coronary r isk equivalent. No symptoms. She has a history of right carotid endarterectomy. -Carotid US 04/2024 - normal antegrade flow left and right -Given ASCVD and DM2 consider add SGLT2i Normal [facility] Progress Note Well-controlled on therapies. -continues on Losartan 100 mg daily -continues on Coreg 12.5 mg twice daily -continues on amlodipine 2.5 mg daily Normal [facility] Progress Note Normal [facility] Progress Note Normal [facility] Troponin I.cardiac panelon 0 11-07-2024 Tropinin I.cardiac panel High sensitivity method 14 ng/L High 0-13 [facility] Comment on above: Order Comment: Less than 99th percentile of normal range cutoff- Female and children under 18 years old <14 ng/L; Male <21 ng/L: Negative Repeat testing should be performed if clinically indicated. Female and children under 18 years old 14-50 ng/L; Male 21-50 ng/L: Consistent with possible cardiac damage and possible increased clinical risk. Serial measurements may help to assess extent of myocardial damage. >50 ng/L: Consistent with cardiac damage, increased clinical risk and myocardial infarction. Serial measurements may help assess extent of myocardial damage. NOTE: Children less than 1 year old may have higher baseline troponin levels and results should be interpreted in conjunction with the overall clinical context. NOTE: Troponin I testing is performed using a different testing methodology at [facility] than at [facility]. Direct result comparisons should only be made within the same method. Performed By: #### 8 [id number] #### SARAH Ramirez ([id number]) [facility] ([facility]) [facility] [place] [address] 36on 11-02-2024 36 I called and CAMELIA Murray to get the CBC in 2 to 3 weeks.If any questions to call our office. Normal [facility] 36 Rx sent, but I would like to get another CBC in 2-3 weeks. Her last one showed her HGB was down to 8.3, so I want to make sure it hasn't dropped lower. Order placed. Normal [facility] 36 Received fax request from [employer] to change prescription of Eliquis 5 mg to #90. Normal [facility] 36on 10-31-2024 36 Overnight oximetry order faxed over to [employer]. Waiting on compliance request. [facility] 36on 10-28-2024 36 Pt notified. Request ed compliance report from [employer]. Is someone sending the order in for the Pulse oximetry or would you like me to? [facility] 37on 10-28-2024 37 [facility] Progress Noteon 10-28-2024 Progress Note Normal [facility] 36on 10-27-2024 36 Patient had to reschedule her stress test, now moved out to 12/05. Authorization only valid through 11/15. Can we get an updated auth for her please? Normal [facility] CBC W Auto Differential pane l (Bld)on 10-21-2024 Basophils (Bld) [#/Vol] 0 10*3/uL 0.0 - 0.2 10*3/uL [facility] Basophils/100 WBC (Bld) 0.1 % 0.0 - 2.0 % [facility] Eosinophils (Bld) [#/Vol] 0.1 10*3/uL 0.0 - 0.5 10*3/uL [facility] Eosinophils/100 WBC (Bld) 0.9 % 0.0 - 6.0 % [facility] Erythrocyte distribution width (RBC) [Ratio] 16.2 % High 11.5 - 15.0 % [facility] Hematocrit (Bld) [Volume fraction] 26.1 % Low 35.0 - 47.0 % [facility] Hemoglobin (Bld) [Mass/Vol] 8.3 g/dL Low 11.7 - 16.0 g/dL [facility] Immature granulocytes (Bld) [#/Vol] 0.1 10*3/uL High NINF - 0.1 10*3/uL [facility] Immature granulocytes/100 WBC (Bld) 1.2 % 0.0 - 2.0 % [facility] Interpretation and review of laboratory results Abnormal [facility] Lymphocytes (Bld) [#/Vol] 1 10*3/uL 1.0 - 4.3 10*3/uL [facility] Lymphocytes/100 WBC (Bld) 11 % Low 15.0 - 45.0 % [facility] MCH (RBC) [Entitic mass] 28 pg 26.0 - 34.0 pg [facility] MCHC (RBC) [Mass/Vol] 31.8 % 30.5 - 36.0 % [facility] MCV (RBC) [Entitic vol] 88.2 fL 77.0 - 99.0 fL [facility] Monocytes (Bld) [#/Vol] 0.8 10*3/uL 0.0 - 0.9 10*3/uL [facility] Monocytes/100 WBC (Bld) 8.1 % 5.0 - 13.0 % [facility] Neutrophils (Bld) [#/Vol] 7.4 10*3/uL 1.8 - 7.5 10*3/uL [facility] Neutrophils/100 WBC (Bld) 78.7 % 38.0 - 82.0 % [facility] Nucleated RBC/100 WBC (Bld) [Ratio] 0 % [facility] Platelet mean volume (Bld) [Entitic vol] 9.4 fL 9.0 - 12.7 fL [facility] Platelets (Bld) [#/Vol] 243 10*3/uL 140 - 440 10*3/uL [facility] RBC (Bld) [#/Vol] 2.96 10*6/uL Low 3.80 - 5.2 0 10*6/uL [facility] WBC (Bld) [#/Vol] 9.4 10*3/uL 3.6 - 10.7 10*3/uL [facility] CBC WITH AUTO DIFFERENTIALon 10-21-2024 Basophils (Bld) [#/Vol] 0.0 10*3/uL Normal 0.0-0.2 [facility] Comment on above: Performed By: #### L [id number] ####Nut Feeder: DARELL CLEEMNS ([phone])[facility]ENTERA BARBGALLUP INDIAN [facility] (SBHLAB)[address] Basophils/100 WBC (Bld) 0.1 % Normal 0.0-2.0 [facility] Comment on above: Performed By: #### L [id number] ####Nut Feeder: DARELL CLEMENS ([phone])[facility] [place] (SBHLAB)[address] [place] [address] [place] Eosinophils (Bld) [#/Vol] 0.1 10*3/uL Normal 0.0-0.5 [facility] Comment on above: Performed By: #### L [id number] ####Nut Feeder: DARLEL CLEMENS ([phone])[facility] [place] (SBHLAB)[address] [place] [address] [place] Eosinophils/100 WBC (Bld) 0.9 % Normal 0.0-6.0 [facility] Comment on above: Performed By: #### L [id number] ####Nut Feeder: DARELL CLEMENS ([phone])[facility] [place] (SBHLAB)[address] Erythrocyte distribution width (RBC) [Ratio] 16.2 % High 11.5-15.0 [facility] Comment on above: Performed By: #### L [id number] ####Nut Feeder: DARELL CLEMENS ([phone])[facility] [place] [facility] (SB[facility])[address] Hematocrit (Bld) [Volume fraction] 26.1 % Low 35.0-47.0 [facility] Comment on above: Performed By: #### L [id number] ####Nut Feeder: DARELL CLEMENS ([phone])[facility] [place] [address] Hemoglobin (Bld) [Mass/Vol] 8.3 g/dL Low 11.7-16.0 [facility] Comment on above: Performed By: #### L [id number] ####Nut Feeder: DARELL CLEMENS ([phone])[facility] IMMATURE GRANS % 1.2 % Normal 0.0-2.0 [facility] Comment on above: Performed By: #### L [id number] ####Nut Feeder: DARELL CLEMENS ([phone])[facility] IMMATURE GRANS ABSOLUTE 0.1 10*3/uL High <0.1 [facility] Comment on above: Performed By: #### L [id number] ####Nut Feeder: DARELL CLEMENS ([phone])[facility] [place] [address] [place] Lymphocytes (Bld) [#/Vol] 1.0 10*3/uL Normal 1.0-4.3 [facility] Comment on above: Performed By: #### L [id number] ####Nut Feeder: DARELL CLEMENS ([phone])[facility] [place] (SBHLAB)[address] Lymphocytes/100 WBC (Bld) 11.0 % Low 15.0-45.0 [facility] Comment on above: Performed By: #### L [id number] ####Nut Feeder: DARELL CLEMENS ([phone])[facility] (SBHLAB)[address] MCH (RBC) [Entitic mass] 28.0 pg Normal 26.0-34.0 [facility] Comment on above: Performed By: #### L [id number] ####Nut Feeder: DARELL CLEMENS ([phone])[facility] [place] (SBHLAB)[address] [place] [address] MCHC 31.8 % Normal 30.5-36.0 [facility] Comment on above: Performed By: #### L [id number] ####Nut Feeder: DARELL CLEMENS ([phone])[facility] (SBHLAB)[address] [place] [address] MCV (RBC) [Entitic vol] 88.2 fL Normal 77.0-99.0 [facility] Comment on above: Performed By: #### L [id number] ####Nut Feeder: DARELL CLEMENS ([phone])[facility] (SBHLAB)[address] [place] [address] Monocytes (Bld) [#/Vol] 0.8 10*3/uL Normal 0.0-0.9 [facility] Comment on above: Performed By: #### L [id number] ####Nut Feeder: DARELL CLEMENS ([phone])[facility] (SB[facility]AB)[address] Monocytes/100 WBC (Bld) 8.1 % Normal 5.0-13.0 [facility] Comment on above: Performed By: #### L [id number] ####Nut Feeder: DARELL CLEMENS ([phone])[facility] [place] (SBHLAB)[address] NEUTROPHILS ABSOLUTE 7.4 10*3/uL Normal 1.8-7.5 [facility] Comment on above: Performed By: #### L [id number] ####Nut Feeder: DARELL CLEMENS ([phone])[facility] [place] (SBHLAB)[address] Neutrophils/100 WBC (Bld) 78.7 % Normal 38.0-82.0 [facility] Comment on above: Performed By: #### L [id number] ####Nut Feeder: DARELL CLMEENS ([phone])[facility] [place] (SBHLAB)[address] NRBC 0.0 /100 WBCs Normal 0.0-2.0 [facility] Comment on above: Performed By: #### L [id number] ####Nut Feeder: DARELL CLEMENS ([phone])[facility] [place] (SBHLAB)[address] Platelet mean volume (Bld) [Entitic vol] 9.4 fL Normal 9.0-12.7 [facility] Comment on above: Performed By: #### L [id number] ####Nut Feeder: DARELL CLEMENS ([phone])[facility] (SBHLAB)[address] [place] [address] [place] Platelets (Bld) [#/Vol] 243 10*3/uL Normal 140-440 [facility] Comment on above: Performed By: #### L [id number] ####Nut Feeder: DARELL CLEMENS ([phone])[facility] [place] (SBHLAB)[address] [place] [address] [place] RBC (Bld) [#/Vol] 2.96 10*6/uL Low 3.80-5.20 [facility] Comment on above: Performed By: #### L [id number] ####Nut Feeder: DARELL CLEMENS ([phone])[facility] [place] (SBHLAB)[address] WBC (Bld) [#/Vol] 9.4 10*3/uL Normal 3.6-10.7 [facility] Comment on above: Performed By: #### L [id number] ####Nut Feeder: DARELL CLEMENS ([phone])[facility] [place] (SBHLAB)[address] COMPLETE URINALYSISon 2024 BACTERIA (#/HPF) IN URINE Few Abnormal Negative [facility] Comment on above: Performed By: #### L [id number] ####Nut Feeder: DARELL CLEMENS ([phone])[facility] [place] (SBHLAB)[address] BILIRUBIN, TOTAL PRESENCE IN URINE Negative Normal Negative [facility] Comment on above: Performed By: #### L [id number] ####Nut Feeder: DARELL CLEMENS ([phone])[facility] (SBHLAB)[address] Clarity (U) Clear Normal Clear [facility] Comment on above: Performed By: #### L [id number] ####Nut Feeder: DARELL CLEMENS ([phone])[facility] [place] (SBHLAB)[address] Color (U) Yellow Normal Lt. Yellow [facility] Comment on above: Performed By: #### L [id number] ####Nut Feeder: DARELL CLEMENS ([phone])[facility] [place] (SBHLAB)[address] GLUCOSE (MG/DL) IN URINE Normal Normal Normal (<70) [facility] Comment on above: Performed By: #### L [id number] ####Nut Feeder: DARELL CLEMENS ([phone])[facility] (SBHLAB)[address] HEMOGLOBIN PRESENCE IN URINE Negative Normal Negative [facility] Comment on above: Performed By: #### L [id number] ####Nut Feeder: DARELL YAKOV ([phone])[facility] [place] (SBHLAB)[address] HYALINE CASTS (#/LPF) IN URINE SEDIMENT BY MICROSCOPY - Abnormal Negative [facility] Comment on above: Performed By: #### L [id number] ####Nut Feeder: DARELL YAKOV ([phone])[facility] [place] (SBHLAB)[address] Ketones Ql (U) Negative Normal Negative [facility] Comment on above: Performed By: #### L [id number] ####Nut Feeder: DARELL YAKOV ([phone])[facility] [place] (SBHLAB)[address] LEUKOCYTE ESTERASE PRESENCE IN URINE BY TEST STRIP 75 Tushar/uL Abnormal Negative [facility] Comment on above: Performed By: #### L [id number] ####Nut Feeder: DARELL YAKOV ([phone])[facility] [place] (SBHLAB)[address] [place] [address] [place] MUCUS (#/LPF) IN URINE SEDIMENT Few Normal Negative [facility] Comment on above: Performed By: #### L [id number] ####Nut Feeder: DARELL BABCOCKSCOTT ([phone])[facility] [place] (SBHLAB)[address] NITRITE PRESENCE IN URINE Negative Normal Negative [facility] Comment on above: Performed By: #### L [id number] ####Nut Feeder: DARELL YAKOV ([phone])[facility] [place] (SBHLAB)[address] [place] [address] [place] NON-SQUAMOUS EPITHELIAL (#/HPF) IN URINE 3-5 Abnormal Negative [facility] Comment on above: Performed By: #### L [id number] ####Nut Feeder: DARELL BABCOCKSCOTT ([phone])[facility] [place] (SBHLAB)[address] [place] [address] [place] pH (U) 5.5 [pH] Normal 5.0-8.0 [facility] Comment on above: Performed By: #### L [id number] ####Nut Feeder: DARELL CLEMENS ([phone])[facility] (SB[facility]AB)[address] Protein (U) [Mass/Vol] 200 mg/dL Abnormal Negative [facility] Comment on above: Performed By: #### L [id number] ####Nut Feeder: DARELL CLEMENS ([phone])[facility] (SB[facility]AB)[address] RBC (#/HPF) IN URINE SEDIMENT 0-2 Normal 0-2 [facility] Comment on above: Performed By: #### L [id number] ####Nut Feeder: DARELL CLEMENS ([phone])[facility] (SBHLAB)[address] Specific gravity (U) [Rel density] 1.019 Normal 1.005-1.030 [facility] Comment on above: Performed By: #### L [id number] ####Nut Feeder: DARELL CLEMENS ([phone])[facility] [place] (SBHLAB)[address] SQUAMOUS EPITHELIAL CELLS (#/HPF) IN URINE SEDIMENT 0-2 Normal 3-5 [facility] Comment on above: Performed By: #### L [id number] ####Nut Feeder: DARELL CLEMENS ([phone])[facility] (SBHLAB)[address] [place] [address] [place] UROBILINOGEN (MG/DL) IN URINE Normal Normal Normal (0-1) [facility] Comment on above: Performed By: #### L [id number] ####Nut Feeder: DARELL CLEMENS ([phone])[facility] (SBHLAB)[address] [place] [address] [place] WBC (LEUKOCYTE) (#/HPF) IN URINE SEDIMENT 6-10 Abnormal 0-5 [facility] Comment on above: Performed By: #### L [id number] ####Nut Feeder: DARELL CLEMENS ([phone])[facility]UM[facility] (SBHLAB)[address] COMPREHENSIVE METABOLIC PANE Roni 10-21-2024 Albumin [Mass/Vol] 2.5 g/dL Low 3.4-4.8 [facility] Comment on above: Performed By: #### James AB17, [id number], [id number] ####Nut Feeder: DARELL CLEMENS ([phone])[facility]ENTERIndio MCCALLUMChristi (SBHLAB)[address] ALP [Catalytic activity/Vol] 41 U/L Normal 40-150 [facility] Comment on above: Performed By: #### James AB17, [id number], [id number] ####Nut Feeder: DARELL CLEMENS ([phone])[facility]ENTERIndio [place] (SBHLAB)[address] ALT [Catalytic activity/Vol] 22 U/L Normal <30 [facility] Comment on above: Performed By: #### Jamse AB17, [id number], [id number] ####Nut Feeder: DARELL CLEMENS ([phone])[facility]ENTERIndio MCCALLUMN (SBHLAB)[address] Anion gap [Moles/Vol] 10 mmol/L Normal 3-13 [facility] Comment on above: Performed By: #### James AB17, [id number], [id number] ####Nut Feeder: DARELL CLEMENS ([phone])[facility]ENTERIndio [place] (SBHLAB)[address] AST [Catalytic activity/Vol] 24 U/L Normal <34 [facility] Comment on above: Performed By: #### James AB17, [id number], [id number] ####Nut Feeder: DARELL CLEMENS ([phone])[facility] CENTERIndio [place]EN (SBHLAB)[address] [place] [address] [place] Bilirubin [Mass/Vol] 0.5 mg/dL Normal <1.2 [facility] Comment on above: Performed By: #### James AB17, [id number], [id number] ####Nut Feeder: DARELL CLEMENS ([phone])[facility]ENTERIndio MCCALLUMN (SBHLAB)[address] Calcium [Mass/Vol] 8.1 mg/dL Low 8.8-10.0 [facility] Comment on above: Performed By: #### James AB17, [id number], [id number] ####Nut Feeder: DARELL CLEMENS ([phone])[facility] [place] (SBHLAB)[address] Chloride [Moles/Vol] 109 mmol/L High 98-107 [facility] Comment on above: Performed By: #### James AB17, [id number], [id number] ####Nut Feeder: DARELL CLEMENS ([phone])[facility] [place] (SBHLAB)[address] CO2 [Moles/Vol] 19 mmol/L Low 23-31 [facility] Comment on above: Performed By: #### James ESTEVES17, [id number], [id number] ####Nut Feeder: DARELL CLEMENS ([phone])[facility]ENTERIndio [facility] (SBHLAB)[address] Creatinine [Mass/Vol] 0.89 mg/dL Normal 0.57-1.11 [facility] Comment on above: Performed By: #### James AB17, [id number], [id number] ####Nut Feeder: DARELL CLEMENS ([phone])[facility] (SBHLAB)[address] [place] [address] [place] GLOMERULAR FILTRATION RATE ML/MIN/1.73 SQ M.PREDICTED 66.5 mL/min/1.73m*2 Normal >60.0 [facility] Comment on above: Result Comment: Calc ulation based on the Chronic Kidney Disease Epidemiology Collaboration (CKD-EPI) equation refit without adjustment for race Performed By: #### James AB17, [id number], [id number] ####Nut Feeder: DARELL CLEMENS ([phone])[facility] (SBHLAB)[address] Glucose [Mass/Vol] 123 mg/dL High 82-115 [facility] Comment on above: Performed By: #### James AB17, [id number], [id number] ####Nut Feeder: DARELL CLEMENS ([phone])[facility] (SBHLAB)[address] Potassium [Moles/Vol] 4.2 mmol/L Normal 3.5-5.1 [facility] Comment on above: Result Comment: [facility] potassium values may be up to 0.5 mmol/L lower than serum values. Performed By: #### James AB17, [id number], [id number] ####Nut Feeder: DARELL CLEMENS ([phone])[facility] (SBHLAB)[address] Protein [Mass/Vol] 5.2 g/dL Low 6.4-8.3 [facility] Comment on above: Performed By: #### James ESTEVES17, [id number], [id number] ####Nut Feeder: DARELL CLEMENS ([phone])[facility] (SBHLAB)[address] [place] [address] [place] Sodium [Moles/Vol] 138 mmol/L Normal 136-145 [facility] Comment on above: Performed By: #### James AB17, [id number], [id number] ####Nut Feeder: DARELL CLEMENS ([phone])[facility] (SBHLAB)[address] [place] [address] [place] Urea nitrogen [Mass/Vol] 19 mg/dL Normal 9-23 [facility] Comment on above: Performed By: #### James AB17, [id number], [id number] ####Nut Feeder: DARELL CLEMENS ([phone])[facility] (SBHLAB)[address] Comprehensive metabolic 1998 panelon 10-21-2024 Albumin [Mass/Vol] 2.5 g/dL Low 3.4 - 4.8 g/dL [facility] ALP [Catalytic activity/Vol] 41 U/L 40 - 150 U/L [facility] ALT [Catalytic activity/Vol] 22 U/L NINF - 30 U/L [facility] Anion gap [Moles/Vol] 10 mmol/L 3 - 13 mmol/L [facility] AST [Catalytic activity/Vol] 24 U/L NINF - 34 U/L [facility] Bilirubin [Mass/Vol] 0.5 mg/dL NINF - 1.2 mg/dL [facility] Calcium [Mass/Vol] 8.1 mg/dL Low 8.8 - 10. 0 mg/dL [facility] Chloride [Moles/Vol] 109 mmol/L High 98 - 10 7 mmol/L [facility] CO2 [Moles/Vol] 19 mmol/L Low 23 - 31 mmol/L [facility] Creatinine [Mass/Vol] 0.89 mg/dL 0.57 - 1.11 mg/dL [facility] GFR/1.73 sq M.predicted (S/P/Bld) [Vol rate/Area] 66.5 mL/min - PINF [facility] Comment on above: Calculation based on the Chronic Kidney Disease Epidemiology Collaboration (CKD-EPI) equation refit without adjustment for race Glucose [Mass/Vol] 123 mg/dL High 82 - 115 mg/dL [facility] Interpretation and review of laboratory results Abnormal [facility] Potassium [Moles/Vol] 4.2 mmol/L 3.5 - 5.1 mmol/L [facility] Comment on above: Plasma potassium kamryn ues may be up to 0.5 mmol/L lower than serum values. Protein [Mass/Vol] 5.2 g/dL Low 6.4 - 8.3 g/dL [facility] Sodium [Moles/Vol] 138 mmol/L 136 - 145 mmol/L [facility] Urea nitrogen [Mass/Vol] 19 mg/dL 9 - 23 mg/dL [facility] ECG 12-LEADon 10-21-2024 ECG 12-LEAD IMPRESSION: Sinus rhythm No change from previous ekg Electronically Signed On 10-21-2024 20:48:35 EST by Parrish Rodriguez [facility] ED Provider Noteon ED Provider Note Normal [facility] HIGH SENSITIVITY TROPONIN, S ERIAL BASELINEon 10-21-2024 TROPONIN HS SERIAL BASELINE 10 ng/L Normal <=14 [facility] Comment on above: Result Comment: In i ndividuals presenting with symptoms > 2h, a baseline troponin <= 5 ng/L suggests acutecardiac injury is unlikely and further serial testing is generally not indicated. Performed By: #### L AB17, [id number], [id number] ####Nut Feeder: DARELL CLEMENS ([phone])[facility] ([facility])[address] [place] [address] Laboratory - Chemistry and C hemistry - challengeon 10-21-2024 Magnesium [Mass/Vol] 1.7 mg/dL 1.6 - 2 .6 mg/dL [facility] MAGNESIUMon 10-21-2024 Magnesium [Mass/Vol] 1.7 mg/dL Normal 1.6-2.6 [facility] Comment on above: Result Comment: SANDRA R COMMENTS:Higher values can be expected in females during menses. Performed By: #### L AB17, [id number], [id number] ####Nut Feeder: DARELL CLEMENS ([phone])[facility] ([facility])[address] [place] [address] Magnesium [Mass/Vol]on 10-21 Interpretation and review of laboratory results Normal [facility] Higher values can be expected in females during menses. [facility] No Panel Informationon 10-21 P [place] 125 degrees [facility] DE Interval 128 ms [facility] QRS [place] 63 degrees [facility] QRSD Interval 81 ms [facility] Healt h QT Interval 394 ms [facility] QTC Interval 433 ms [facility] T Wave [place] 69 degrees [facility] Sinus rhythm No change from previous ekg Electronically Signed On 10-21-2024 20:48:35 EST by Parrish Merino DO - 10/21/2024 IMPRESSION: Sinus rhythm No change from previous ekg Electronically Signed On 10-21-2024 20:48:35 EST by Parrish Chaidez [facility] Interpretation and review of laboratory results Normal [facility] Troponin HS Serial Baseline 10 ng/L NINF - 14 ng/L [facility] Comment on above: In individuals prese nting with symptoms > 2h, a baseline troponin <= 5 ng/L suggests acute cardiac injury is unlikely and further serial testing is generally not indicated. [facility] Urinalysis complete panel (U )Ordered By: Robert Gamboa on 10-21-2024 Bacteria LM.HPF (Urine sed) [#/Area] Few Abnormal Negative /HPF [facility] Bilirubin Ql (U) Negative Negative mg/dL [facility] Clarity (U) Clear Clear [facility] Color (U) Yellow Lt. Yellow [facility] Epithelial cells.squamous LM.HPF (Urine sed) [#/Area] 0-2 [facility] h Glucose Ql (U) Normal Normal (<70) mg/dL [facility] Hemoglobin Ql (U) Negative Negative mg/dL [facility] Hyaline casts Auto (Urine sed) [#/Area] 11-25 Abnormal Negative /LPF [facility] Interpretation and review of laboratory results Abnormal [facility] Ketones (U) [Mass/Vol] Negative Negat mt mg/dL [facility] Leukocyte esterase Test strip Ql (U) 75 Abnormal Negative Tushar/uL [facility] Mucus LM.HPF (Urine sed) [#/Area] Few Negative /LPF [facility] Nitrite Ql (U) Negative Negative [facility] th Non-Squamous Epithalial Cells, Urine 3-5 Abnormal Negative /HPF [facility] pH (U) 5.5 [pH] 5.0 - 8.0 pH [facility] Protein (U) [Mass/Vol] 200 mg/dL Abnormal Negative [facility] RBC LM.HPF (Urine sed) [#/Area] 0-2 [facility] Specific gravity (U) [Rel density] 1.019 1.005 - 1.030 [facility] Urobilinogen (U) [Mass/Vol] Normal Normal (0-1) mg/dL [facility] WBC LM.HPF (Urine sed) [#/Area] 6-10 Abnormal [facility] Vital signson 10-21-2024 Heart rate 73 /min bpm [facility] XR Chest Single viewon 10-21 FINDINGS AND IMPRESSION: SUPPORT DEVICES: None OSSEOUS STRUCTURES: Degenerative changes in the thoracic spine. HEART AND MEDIASTINUM: The cardiomediastinal silhouette appears unchanged from the prior exam. LUNGS AND PLEURA: Hyperinflated lungs with coarse interstitial markings likely related to chronic obstructive pulmonary disease. No consolidation, edema or sizable effusion. Report Dictated on Electronically Signed By: Deven Mendoza MD Electronically Signed Date/Time: 10/21/2024 5:26 PM [facility] Patient Name: ROLANDO PETERS : 1945 Exam Date/Time: 10/21/2024 17:25 Procedure: XR CHEST 1 VIEW Ordering Provider: CHAIDEZ MEJGON Reason For Exam: sob CHEST CLINICAL INDICATION: Dyspnea TECHNIQUE: AP portable chest COMPARISON: 08/28/2024 [facility] Deven Mendoza MD - 10/21/2024 Patient Name: ROLANDO PETERS : 1945 Exam Date/Time: 10/21/2024 17:25 Procedure: XR CHEST 1 VIEW Ordering Provider: CHAIDEZ MEJGON Reason For Exam: sob CHEST CLINICAL INDICATION: Dyspnea TECHNIQUE: AP portable chest COMPARISON: 08/28/2024 IMPRESSION: FINDINGS AND IMPRESSION: SUPPORT DEVICES: None OSSEOUS STRUCTURES: Degenerative changes in the thoracic spine. HEART AND MEDIASTINUM: The cardiomediastinal silhouette appears unchanged from the prior exam. LUNGS AND PLEURA: Hyperinflated lungs with coarse interstitial markings likely related to chronic obstructive pulmonary disease. No consolidation, edema or sizable effusion. Report Dictated on Electronically Signed By: Deven Mendoza MD Electronically Signed Date/Time: 10/21/2024 5:26 PM [facility] Radiology Study observation (narrative) [facility] XR Chest Single viewOrdered By: Deven Mendoza on 10-21-2024 [facility] Work Phone: CT CHEST WO IV CONTRASTon CT CHEST WO IV CONTRAST Normal [facility] 36on 10-12-2024 36 Normal [facility] XR CHEST 2 VIEWSon XR CHEST 2 VIEWS Interpreted By: Salina Palomino, STUDY: XR CHEST 2 VIEWS; 10/12/2024 11:21 am INDICATION: Signs/Symptoms:cough. COMPARISON: 11/04/2022 ACCESSION NUMBER(S): [id number] ORDERING CLINICIAN: CELIA AL FINDINGS: Cardiomediastinal silhouette and pulmonary vasculature are within normal limits. No consolidation, effusion or pneumothorax. IMPRESSION: No acute cardiopulmonary process. MACRO: None Signed by: Salina Palomino 10/13/2024 6:36 PM Dictation workstation: [id number] [facility] 36on 10-05-2024 36 Pt is calling for a refill on Carvedilol to be sent to [facility] 36on 09-22-2024 36 [facility] 36 Normal [facility] 36 Pt called in and lef t a voice mail returning [place] call, Please call her today [facility] 36on 09-19-2024 36 [facility] 36on 09-16-2024 36 Auth Approved #[id number] for NST [id number]. Valid 09/16/24 to 11/15/24. Per evicore/summacare. Okay to schedule Thank you [facility] 36 Ill work on this Normal [facility] 36 Patient was ordered a NM stress test and would need a prior auth before scheduling please. Thanks [facility] Progress Noteon 09-16-2024 Progress Note Improved since hospi trish with the RE-addition of Amlodipine. -continues on Losartan, Coreg -continues on amlodipine 2.5 mg daily [facility] Progress Note Moderate. Coronary r isk equivalent. No symptoms. She has a history of right carotid endarterectomy. -Carotid US 04/2024 - normal antegrade flow left and right -Given ASCVD and DM2 consider add SGLT2i [facility] Progress Note -08/2024 received autoPAP, and reports compliance; encouraged absolute compliance [facility] Progress Note Target LDL <70. LDL 62 (11/2023) - Cont zetia - Cont crestor - Cont Vascepa. -Cont lifestyle mgt given elev TG; if much higher over time, consider Tricor Normal [facility] Progress Note Normal [facility] 36on 09-08-2024 36 Normal [facility] 36 Normal [facility] 36 Normal [facility] Progress Noteon 09-07-2024 Progress Note Normal [facility] 36on 08-30-2024 36 Patient completed US thoracentesis 08-29-2024. Has follow-up scheduled in the pulmonary office with Dr. Arana 09-07-2024 to review results. Lung navigators will continue to follow. Normal [facility] 36 Normal [facility] 30on 08-29-2024 30 Normal [facility] [id number] 08-29-2024 [id number] Spoke to patient regarding possible home care SN services. Pt politely declined at this time. Pt will follow up with PCP, if this is needed after she returns home. Normal [facility] 36on 08-29-2024 36 Normal [facility] BODY FLUID CELL COUNT WITH R EFLEX DIFFon 08-29-2024 RBC, BODY FLUID (AUTOMATED) 0.004 x10*6/ul High 0.000 [facility] Comment on above: Performed By: #### L [id number], [id number] ####Nut Feeder: DARELL CLEMENS ([id number])[facility] ([facility])[address] [place] [address] TYPE OF BODY FLUID Pleural Fluid Normal [facility] Comment on above: Performed By: #### L [id number], [id number] ####Nut Feeder: DARELL CLEMENS ([id number])[facility] (SBHLAB)[address] [place] [address] Result Comment: SANDRA Tierney COMMENTS:This test was developed and its performance characteristics determined by [facility]. It has not been cleared or approved by the US Food and Drug Administration. This test was performed in a CLIA certified laboratory and is intended for clinical purposes. Performed By: #### L AB188, VBO554, [id number], BZW905 ####Nut Feeder: RAIZA CONTRERAS ([phone])[facility] ([facility])[address] [place] [address] Result Comment: SANDRA Tierney COMMENTS:This test was developed and its performance characteristics determined by [facility]. It has not been cleared or approved by the [place] Food and Drug Administration. This test was performed in a CLIA certified laboratory and is intended for clinical purposes.Normal pleural fluid glucose is similar to serum concentrations. Transudates and most exudates >60 mg/dL. Pleural fluid exudates with glucose concentrations <60 mg/dL have been associated with conditions such as parapneumonic effusion, tuberculosis, malignancy, empyema, and/or rheumatoid disease. Result Comment: SANDRA Tierney COMMENTS:This test was developed and its performance characteristics determined by [facility]. It has not been cleared or approved by the US Food and Drug Administration. This test was performed in a CLIA certified laboratory and is intended for clinical purposes.Exudates are defined as meeting one of the following criteria: (a) Pleural cjweg-vi-hmtxt protein ratio of >0.5, (b) pleural ovsin-mf-jyqah LDH ratio of >0.6, or (c)a pleural fluid LDH activity that is >2/3 the upper limit of a normal serum LDH activity (Light???s criteria). Result Comment: SANDAR Tierney COMMENTS:This test was developed and its performance characteristics determined by [facility]. It has not been cleared or approved by the US Food and Drug Administration. This test was performed in a CLIA certified laboratory and is intended for clinical purposes.Pleural gbdeg-qu-mneja protein ratio of >0.5 is one of Light???s criteria for an exudate. Heart failure associated misclassifications (by Light???s criteria) may be differentiated as transudative effusions by subsequently evaluating a kjsgj-ci-fgvyaax albumin gradient (>1.2 g/dL) and/or a pviez-hs-uaxwb protein gradient (>3.1 g/dL). WBC, BODY FLUID (AUTOMATED) 0.394 x10*3/ul High <=0.005 [facility] Comment on above: Performed By: #### L [id number], [id number] ####Nut Feeder: DARELL CLEMENS ([phone])[facility] (SBHLAB)[address] BODY FLUID DIFFERENTIALon CELLS COUNTED TOTAL (#) IN BODY FLUID 100 Normal [facility] Comment on above: Performed By: #### L [id number], [id number] ####Nut Feeder: DARELL CLEMENS ([id number])[facility] (SBHLAB)[address] LYMPHOCYTES/100 LEUKOCYTES IN BODY FLUID BY MAN CT 54 % Normal [facility] Comment on above: Performed By: #### L [id number], [id number] ####Nut Feeder: DARELL CLEMENS ([phone])[facility] [place] (SBHL[facility])[address] MONOCYTES+MACROPHAGES/1 00 WBC IN BODY FLUID BY MAN CT 36 % Normal [facility] Comment on above: Performed By: #### L [id number], [id number] ####Nut Feeder: DARELL CLEMENS ([phone])[facility] (SB[facility])[address] Neutrophils/100 WBC (Bld) 10 % Normal [facility] Comment on above: Performed By: #### L [id number], [id number] ####Nut Feeder: DARELL CLEMENS ([phone])[facility] [place] (SBHL[facility])[address] CBC W Auto Differential pane l (Bld)on 08-29-2024 Basophils (Bld) [#/Vol] 0 10*3/uL 0.0 - 0.2 10*3/uL [facility] Basophils/100 WBC (Bld) 0 % 0.0 - 2.0 % [facility] Eosinophils (Bld) [#/Vol] 0 10*3/uL 0.0 - 0.5 10*3/uL [facility] Eosinophils/100 WBC (Bld) 0.1 % 0.0 - 6.0 % [facility] [employer] Erythrocyte distribution width (RBC) [Ratio] 14.5 % 11.5 - 15.0 % [facility] Hematocrit (Bld) [Volume fraction] 31.6 % Low 35.0 - 47.0 % [facility] Hemoglobin (Bld) [Mass/Vol] 10 g/dL Low 11.7 - 16.0 g/dL [facility] Immature granulocytes (Bld) [#/Vol] 0 10*3/uL NINF - 0.1 10*3/uL [facility] Immature granulocytes/100 WBC (Bld) 0.3 % 0.0 - 2.0 % [facility] Interpretation and review of laboratory results Abnormal [facility] Lymphocytes (Bld) [#/Vol] 0.7 10*3/uL Low 1.0 - 4.3 10*3/uL [facility] Lymphocytes/100 WBC (Bld) 8.3 % Low 15.0 - 45.0 % [facility] MCH (RBC) [Entitic mass] 28.6 pg 26.0 - 34.0 pg [facility] MCHC (RBC) [Mass/Vol] 31.6 % 30.5 - 36.0 % [facility] MCV (RBC) [Entitic vol] 90.3 fL 77.0 - 99.0 fL [facility] Monocytes (Bld) [#/Vol] 0.7 10*3/uL 0.0 - 0.9 10*3/uL [facility] Monocytes/100 WBC (Bld) 9.3 % 5.0 - 13.0 % [facility] Neutrophils (Bld) [#/Vol] 6.4 10*3/uL 1.8 - 7.5 10*3/uL [facility] Neutrophils/100 WBC (Bld) 82 % 38.0 - 82.0 % [facility] Nucleated RBC/100 WBC (Bld) [Ratio] 0 % [facility] [employer] Platelet mean volume (Bld) [Entitic vol] 9.7 fL 9.0 - 12.7 fL [facility] Platelets (Bld) [#/Vol] 237 10*3/uL 140 - 440 10*3/uL [facility] RBC (Bld) [#/Vol] 3.5 10*6/uL Low 3.80 - 5.2 0 10*6/uL [facility] WBC (Bld) [#/Vol] 7.8 10*3/uL 3.6 - 10.7 10*3/uL [facility] CBC WITH AUTO DIFFERENTIALon 08-29-2024 Basophils (Bld) [#/Vol] 0.0 10*3/uL Normal 0.0-0.2 [facility] Comment on above: Performed By: #### L [id number] ####Nut Feeder: DARELL CLEMENS ([phone])[facility] [place] (SBHL[facility])[address] Basophils/100 WBC (Bld) 0.0 % Normal 0.0-2.0 [facility] Comment on above: Performed By: #### L [id number] ####Nut Feeder: DARELL CLEMENS ([phone])[facility] [place] (SBHL[facility])[address] [place] [address] Eosinophils (Bld) [#/Vol] 0.0 10*3/uL Normal 0.0-0.5 [facility] Comment on above: Performed By: #### L [id number] ####Nut Feeder: DARELL CLEMENS ([phone])[facility] [place] (SB[facility])[address] Eosinophils/100 WBC (Bld) 0.1 % Normal 0.0-6.0 [facility] Comment on above: Performed By: #### L [id number] ####Nut Feeder: DARELL CLEMENS ([id number])[facility] [place] (SB[facility])[address] Erythrocyte distribution width (RBC) [Ratio] 14.5 % Normal 11.5-15.0 [facility] Comment on above: Performed By: #### L [id number] ####Nut Feeder: DARELL CLEMENS ([phone])[facility] [place] (SB[facility])[address] [place] [address] Hematocrit (Bld) [Volume fraction] 31.6 % Low 35.0-47.0 [facility] Comment on above: Performed By: #### L [id number] ####Nut Feeder: DARELL BABCOCKStormSHAYLA ([phone])[facility] ([facility])[address] Hemoglobin (Bld) [Mass/Vol] 10.0 g/dL Low 11.7-16.0 [facility] Comment on above: Performed By: #### L [id number] ####Nut Feeder: DARELL MCCANNSHAYLA ([phone])[facility] ([facility])[address] IMMATURE GRANS % 0.3 % Normal 0.0-2.0 [facility] Comment on above: Performed By: #### L [id number] ####Nut Feeder: DARELL BABCOCKStormSHAYLA ([phone])[facility] ([facility] IMMATURE GRANS ABSOLUTE 0.0 10*3/uL Normal <0.1 [facility] Comment on above: Performed By: #### L [id number] ####Nut Feeder: DARELL BABCOCKStormSHAYLA ([phone])[facility] ([facility] Lymphocytes (Bld) [#/Vol] 0.7 10*3/uL Low 1.0-4.3 [facility] Comment on above: Performed By: #### L [id number] ####Nut Feeder: DARELL CLEMENS ([phone])[facility] ([facility] Lymphocytes/100 WBC (Bld) 8.3 % Low 15.0-45.0 [facility] Comment on above: Performed By: #### L [id number] ####Nut Feeder: DARELL CLEMENS ([id number])[facility] MCH (RBC) [Entitic mass] 28.6 pg Normal 26.0-34.0 [facility] Comment on above: Performed By: #### L [id number] ####Nut Feeder: DARELL YAKOV ([phone])[facility] [place] (SBHLAB)[address] MCHC 31.6 % Normal 30.5-36.0 [facility] Comment on above: Performed By: #### L [id number] ####Nut Feeder: DARLEL YAKOV ([id number])[facility] (SBHLAB)[address] MCV (RBC) [Entitic vol] 90.3 fL Normal 77.0-99.0 [facility] Comment on above: Performed By: #### L [id number] ####Nut Feeder: DARELL CLEMENS ([phone])[facility] [place] (SB[facility])[address] [place] [address] Monocytes (Bld) [#/Vol] 0.7 10*3/uL Normal 0.0-0.9 [facility] Comment on above: Performed By: #### L [id number] ####Nut Feeder: DARELL YAKOV ([phone])[facility] [place] (SBHL[facility])[address] Monocytes/100 WBC (Bld) 9.3 % Normal 5.0-13.0 [facility] Comment on above: Performed By: #### L [id number] ####Nut Feeder: DARELL BABCOKCStormSHAYLA ([phone])[facility] [place] (SBHLAB)[address] NEUTROPHILS ABSOLUTE 6.4 10*3/uL Normal 1.8-7.5 [facility] Comment on above: Performed By: #### L [id number] ####Nut Feeder: DARELL YAKOV ([id number])[facility] [place] ([facility])[address] Neutrophils/100 WBC (Bld) 82.0 % Normal 38.0-82.0 [facility] Comment on above: Performed By: #### L [id number] ####Nut Feeder: DARELL BABCOCKStormSHAYLA ([phone])[facility] [place] (SBHL[facility])[address] NRBC 0.0 /100 WBCs Normal 0.0-2.0 [facility] Comment on above: Performed By: #### L [id number] ####Nut Feeder: DARELL YAKOV ([id number])[facility] [place] ([facility])[address] Platelet mean volume (Bld) [Entitic vol] 9.7 fL Normal 9.0-12.7 [facility] Comment on above: Performed By: #### L [id number] ####Nut Feeder: DARELL YAKOV ([id number])[facility] [place] (SB[facility])[address] [place] [address] Platelets (Bld) [#/Vol] 237 10*3/uL Normal 140-440 [facility] Comment on above: Performed By: #### L [id number] ####Nut Feeder: DARELL MCCANNSHAYLA ([phone])[facility]ENTER[facility]io [facility] (SBHLAB)[address] RBC (Bld) [#/Vol] 3.50 10*6/uL Low 3.80-5.20 [facility] Comment on above: Performed By: #### L [id number] ####Nut Feeder: DARELL MCCANNSHAYLA ([phone])[facility] [place] ([facility])[address] WBC (Bld) [#/Vol] 7.8 10*3/uL Normal 3.6-10.7 [facility] Comment on above: Performed By: #### L [id number] ####Nut Feeder: DARELL MCCANNSHAYLA ([phone])[facility] [place] (SB[facility])[address] COMPREHENSIVE METABOLIC PANE Roni 08-29-2024 Albumin [Mass/Vol] 3.2 g/dL Low 3.4-4.8 [facility] Comment on above: Performed By: #### L [id number] ####Nut Feeder: DARELL CLEMENS ([phone])[facility] [place] ([facility])[address] ALP [Catalytic activity/Vol] 52 U/L Normal 40-150 [facility] Comment on above: Performed By: #### L AB17 ####Nut Feeder: DARELL CLEMENS ([phone])[facility] [place] ([facility])[address] ALT [Catalytic activity/Vol] 30 U/L High <30 [facility] Comment on above: Performed By: #### L AB17 ####Nut Feeder: DARELL CLEMENS ([phone])[facility] [place] ([facility])[address] Anion gap [Moles/Vol] 11 mmol/L Normal 3-13 [facility] Comment on above: Performed By: #### L [id number] ####Nut Feeder: DARELL CLEMENS ([phone])[facility] [place] ([facility])[address] AST [Catalytic activity/Vol] 24 U/L Normal <34 [facility] Comment on above: Performed By: #### L AB17 ####Nut Feeder: DARELL CLEMENS ([id number])[facility] [place] ([facility])[address] Bilirubin [Mass/Vol] 0.4 mg/dL Normal <1.2 [facility] Comment on above: Performed By: #### L AB17 ####Nut Feeder: DARELL CLEMENS ([phone])[facility] [place] ([facility])[address] Calcium [Mass/Vol] 8.7 mg/dL Low 8.8-10.0 [facility] Comment on above: Performed By: #### L AB17 ####Nut Feeder: DARELL CLEMENS ([phone])[facility] [place] ([facility])[address] Chloride [Moles/Vol] 100 mmol/L Normal 98-107 [facility] Comment on above: Performed By: #### L AB17 ####Nut Feeder: DARELL CLEMENS ([phone])[facility] (SBHLAB)[address] CO2 [Moles/Vol] 25 mmol/L Normal 23-31 [facility] Comment on above: Performed By: #### L AB17 ####Nut Feeder: DARELL CLEMENS ([phone])[facility] (SBHLAB)[address] Creatinine [Mass/Vol] 1.09 mg/dL Normal 0.57-1.11 [facility] Comment on above: Performed By: #### L AB17 ####Nut Feeder: DARELL CLEMENS ([phone])[facility] (HLAB)[address] GLOMERULAR FILTRATION RATE ML/MIN/1.73 SQ M.PREDICTED 52.1 mL/min/1.73m*2 Low >60.0 [facility] Comment on above: Result Comment: Calc ulation based on the Chronic Kidney Disease Epidemiology Collaboration (CKD-EPI) equation refit without adjustment for race Performed By: #### L AB17 ####Nut Feeder: DARELL CLEMENS ([phone])[facility] (SBHL[facility])[address] Glucose [Mass/Vol] 147 mg/dL High 82-115 [facility] Comment on above: Performed By: #### L AB17 ####Nut Feeder: DARELL CLEMENS ([phone])[facility] (HLAB)[address] Potassium [Moles/Vol] 4.1 mmol/L Normal 3.5-5.1 [facility] Comment on above: Result Comment: [facility] potassium values may be up to 0.5 mmol/L lower than serum values. Performed By: #### L AB17 ####Nut Feeder: DARELL CLEMENS ([phone])[facility] [place] (SBHL[facility])[address] Protein [Mass/Vol] 6.2 g/dL Low 6.4-8.3 [facility] Comment on above: Performed By: #### L AB17 ####Nut Feeder: DARELL CLEMENS ([phone])[facility] [place] (SB[facility])[address] Sodium [Moles/Vol] 136 mmol/L Normal 136-145 [facility] Comment on above: Performed By: #### L AB17 ####Nut Feeder: DARELL CLEMENS ([id number])[facility] [place] (SBHL[facility])[address] [place] [address] Urea nitrogen [Mass/Vol] 37 mg/dL High 9-23 [facility] Comment on above: Performed By: #### L AB17 ####Nut Feeder: DARELL CLEMENS ([phone])[facility] [place] (SBHL[facility])[address] CULTURE ANAEROBICon 08-29-19 25 CULTURE ANAEROBIC Normal [facility] Comment on above: Performed By: #### L [id number] ####Nut Feeder: RAIZA CONTRERAS ([phone])[facility] ([facility])[address] [place] [address] CULTURE, AEROBIC BACTERIA WI TH GRAM STAINon 08-29-2024 CULTURE, AEROBIC BACTERIA WITH GRAM STAIN Normal [facility] Comment on above: Performed By: #### L [id number] ####Nut Feeder: RAIZA CONTRERAS ([phone])[facility] ([facility])[address] [place] [address] Comprehensive metabolic 1998 panelon 08-29-2024 Albumin [Mass/Vol] 3.2 g/dL Low 3.4 - 4.8 g/dL [facility] ALP [Catalytic activity/Vol] 52 U/L 40 - 150 U/L [facility] ALT [Catalytic activity/Vol] 30 U/L High NINF - 30 U/L [facility] Anion gap [Moles/Vol] 11 mmol/L 3 - 13 mmol/L [facility] AST [Catalytic activity/Vol] 24 U/L NINF - 34 U/L [facility] Bilirubin [Mass/Vol] 0.4 mg/dL NINF - 1.2 mg/dL [facility] Calcium [Mass/Vol] 8.7 mg/dL Low 8.8 - 10. 0 mg/dL [facility] Chloride [Moles/Vol] 100 mmol/L 98 - 10 7 mmol/L [facility] CO2 [Moles/Vol] 25 mmol/L 23 - 31 mmol/L [facility] Creatinine [Mass/Vol] 1.09 mg/dL 0.57 - 1.11 mg/dL [facility] GFR/1.73 sq M.predicted (S/P/Bld) [Vol rate/Area] 52.1 mL/min Low - PINF [facility] Comment on above: Calculation based on the Chronic Kidney Disease Epidemiology Collaboration (CKD-EPI) equation refit without adjustment for race Glucose [Mass/Vol] 147 mg/dL High 82 - 115 mg/dL [facility] Interpretation and review of laboratory results Abnormal [facility] Potassium [Moles/Vol] 4.1 mmol/L 3.5 - 5.1 mmol/L [facility] Comment on above: Plasma potassium kamryn ues may be up to 0.5 mmol/L lower than serum values. Protein [Mass/Vol] 6.2 g/dL Low 6.4 - 8.3 g/dL [facility] Sodium [Moles/Vol] 136 mmol/L 136 - 145 mmol/L [facility] Urea nitrogen [Mass/Vol] 37 mg/dL High 9 - 23 mg/dL [facility] GLUCOSE, BODY FLUIDon 2024 GLUCOSE, BODY FLUID 246 mg/dL Normal [facility] Comment on above: Performed By: #### L AB188, BOJ047, [id number], [id number] ####Nut Feeder: RAIZA CONTRERAS ([phone])[facility] ([address] LACTATE DEHYDROGENASE, BODY FLUIDon 08-29-2024 LACTATE DEHYDROGENASE, BODY FLUID BY LAC->PYR 66 U/L Normal [facility] Comment on above: Performed By: #### L AB188, [id number], DUS567, [id number] ####Nut Feeder: RAIZA CONTRERAS ([phone])[facility] ([facility])[address] [place] [address] Laboratoryon 08-29-2024 Fluid Nom (Body fld) Pleural Fluid S [facility] LaboratoryOrdered By: Columba Metzger on 08-29-2024 Fluid Nom (Body fld) Pleural Fluid S [facility] LaboratoryOrdered By: Zena Riddle on 08-29-2024 Fluid Nom (Body fld) Pleural Fluid S [facility] Laboratory - Chemistry and C hemistry - challengeon 08-29-2024 Glucose (Body fld) [Mass/Vol] 246 mg/dL [facility] LDH (Body fld) [Catalytic activity/Vol] 66 U/L [facility] Protein (Body fld) [Mass/Vol] 1.9 g/dL [facility] Glucose [Mass/Vol] 130 mg/dL High 70 - 100 mg/dL [facility] Laboratory - Chemistry and C hemistry - challengeOrdered By: Columba Metzger on 08-29-2024 pH (Body fld) [facility] Laboratory - Hematology and Cell countsOrdered By: Robert Gamboa on 08-29-2024 Cells Counted Total (Body fld) [#] 100 [facility] Lymphocytes/100 WBC (Bld) 54 % [facility] Macrophages/100 WBC Manual cnt (Body fld) 36 % [facility] Neutrophils/100 WBC (Body fld) 10 % [facility] Laboratory - Hematology and Cell countsOrdered By: Rashi Riddle on 08-29-2024 RBC Auto (Body fld) [#/Vol] 0.004 High 0.000 x10*6/ul [facility] WBC (Body fld) [#/Vol] 0.394 10*3/uL High NINF [facility] No Panel Informationon 08-29 This test was develo ped and its performance characteristics determined by [facility]. It has not been cleared or approved by the US Food and Drug Administration. This test was performed in a CLIA certified laboratory and is intended for clinical purposes. Exudates are defined as meeting one of the following criteria: (a) Pleural cfkpu-yn-cvasa protein ratio of >0.5, (b) pleural vmdpd-rc-ymqtb LDH ratio of >0.6, or (c)a pleural fluid LDH activity that is >2/3 the upper limit of a normal serum LDH activity (Light s criteria). [facility] [email or web address] This test was develo ped and its performance characteristics determined by [facility]. It has not been cleared or approved by the US Food and Drug Administration. This test was performed in a CLIA certified laboratory and is intended for clinical purposes. Normal pleural fluid glucose is similar to serum concentrations. Transudates and most exudates >60 mg/dL. Pleural fluid exudates with glucose concentrations <60 mg/dL have been associated with conditions such as parapneumonic effusion, tuberculosis, malignancy, empyema, and/or rheumatoid disease. [employer] This test was develo ped and its performance characteristics determined by [facility]. It has not been cleared or approved by the US Food and Drug Administration. This test was performed in a CLIA certified laboratory and is intended for clinical purposes. Pleural yakoo-py-axzeh protein ratio of >0.5 is one of Light s criteria for an exudate. Heart failure associated misclassifications (by Light s criteria) may be differentiated as transudative effusions by subsequently evaluating a mhiss-qq-zeanvga albumin gradient (>1.2 g/dL) and/or a omlbs-zw-xacyq protein gradient (>3.1 g/dL). [employer] Successful ultrasound-guided right thoracentesis with drainage of 450 milliliters of clear red fluid. PROCEDURE SUMMARY: - Limited thoracic ultrasound - Ultrasound-guided thoracentesis - Additional procedure(s): None PROCEDURE DETAILS: Pre-procedure Consent: Informed consent for the procedure including risks, benefits and alternatives was obtained and time-out was performed prior to the procedure. Preparation: The site was prepared and draped using maximal sterile barrier technique including cutaneous antisepsis. Anesthesia/sedation None Limited thoracic ultrasound Limited thoracic ultrasound was performed using a curved transducer. A safe window for thoracentesis was identified. Moderate to large pleural effusion was seen on the side of aspiration. The contralateral side was not investigated. Thoracentesis Local anesthesia was administered. Ultrasound was used to pick a safe access site. A permanent image was stored. The pleural space was accessed and fluid return confirmed position. The fluid was drained. Catheter placed: 5F Yueh Closure The catheter was removed. A sterile bandage was applied. Post-drainage hemithorax findings: Minimal effusion Additional Details Additional description of procedure: None Equipment details: None Specimens removed: Pleural fluid Estimated blood loss (mL): Less than 10 Report Dictated on Electronically Signed By: Stella Gaitan PA-C Electronically Signed Date/Time: 08/29/2024 2:41 PM EST [facility] [employer] Patient Name: ROLANDO PETERS : 1945 Exam Date/Time: 08/29/2024 13:59 Procedure: US GUIDED THORACENTESIS Ordering Provider: CORTES HEIDI Reason For Exam: right pleural effusion PROCEDURE: Ultrasound-guided right thoracentesis PROCEDURAL PERSONNEL Advanced Practice Provider: Stella Gaitan PA-C Attending physician, Keyon Morales M.D., was available in the department if needed. Indication: Pleural effusion Additional clinical history: None Complications: No immediate complications. [facility] Stella Gaitan PA -C - 08/29/2024 Patient Name: ROLANDO PETERS : 1945 Exam Date/Time: 08/29/2024 13:59 Procedure: US GUIDED THORACENTESIS Ordering Provider: CORTES HEIDI Reason For Exam: right pleural effusion PROCEDURE: Ultrasound-guided right thoracentesis PROCEDURAL PERSONNEL Advanced Practice Provider: Stella Gaitan PA-C Attending physician, Keyon Morales M.D., was available in the department if needed. Indication: Pleural effusion Additional clinical history: None Complications: No immediate complications. IMPRESSION: Successful ultrasound-guided right thoracentesis with drainage of 450 milliliters of clear red fluid. PROCEDURE SUMMARY: - Limited thoracic ultrasound - Ultrasound-guided thoracentesis - Additional procedure(s): None PROCEDURE DETAILS: Pre-procedure Consent: Informed consent for the procedure including risks, benefits and alternatives was obtained and time-out was performed prior to the procedure. Preparation: The site was prepared and draped using maximal sterile barrier technique including cutaneous antisepsis. Anesthesia/sedation None Limited thoracic ultrasound Limited thoracic ultrasound was performed using a curved transducer. A safe window for thoracentesis was identified. Moderate to large pleural effusion was seen on the side of aspiration. The contralateral side was not investigated. Thoracentesis Local anesthesia was administered. Ultrasound was used to pick a safe access site. A permanent image was stored. The pleural space was accessed and fluid return confirmed position. The fluid was drained. Catheter placed: 5F Yueh Closure The catheter was removed. A sterile bandage was applied. Post-drainage hemithorax findings: Minimal effusion Additional Details Additional description of procedure: None Equipment details: None Specimens removed: Pleural fluid Estimated blood loss (mL): Less than 10 Report Dictated on Electronically Signed By: Stella Gaitan PA-C Electronically Signed Date/Time: 08/29/2024 2:41 PM EST [facility] Radiology Study observation (narrative) [facility] franklyn Interpretation and review of laboratory results Abnormal [facility] Performed by: [facility], [address] [place] [id number] CLIA ID: [id number] [facility] No Panel InformationOrdered By: Columba Metzger on 08-29-2024 This test was develo ped and its performance characteristics determined by [facility]. It has not been cleared or approved by the US Food and Drug Administration. This test was performed in a CLIA certified laboratory and is intended for clinical purposes. [facility] No Panel InformationOrdered By: Robert Gamboa on 08-29-2024 [facility] No Panel InformationOrdered By: Stella Gaitan on 08-29-2024 [facility] Work Phone: Kf Panel InformationOrdered By: Rashi Riddle on 08-29-2024 Interpretation and review of laboratory results Abnormal [facility] Nursing Noteon 08-29-2024 Nursing Note Discharge instructio ns given to the patient and questions were addressed. Educated patient on the importance of follow up appointments. Normal [facility] Nursing Note Normal [facility] PH, BODY FLUIDon 08-29-2024 pH (Body fld) [pH] Normal [facility] Comment on above: Performed By: #### L [id number], [id number], [id number], [id number] ####Nut Feeder: RAIZA CONTRERAS ([phone])[facility] ([address] PROTEIN BODY FLUIDon 025 PROTEIN, BODY FLUID 1.9 g/dL Normal [facility] Comment on above: Performed By: #### L [id number], [id number], [id number], [id number] ####Nut Feeder: RAIZA CONTRERAS ([phone])[address] Progress Noteon 08-29-2024 Progress Note Normal [facility] Progress Note Normal [facility] Progress Note Normal [facility] US GUIDED THORACENTESISon US GUIDED THORACENTESIS Normal [facility] 30on 08-28-2024 30 Normal [facility] CBC W Auto Differential pane l (Bld)on 08-28-2024 Basophils (Bld) [#/Vol] 0 10*3/uL 0.0 - 0.2 10*3/uL [facility] Basophils/100 WBC (Bld) 0.1 % 0.0 - 2.0 % [facility] Eosinophils (Bld) [#/Vol] 0 10*3/uL 0.0 - 0.5 10*3/uL [facility] Eosinophils/100 WBC (Bld) 0.1 % 0.0 - 6.0 % [facility] Erythrocyte distribution width (RBC) [Ratio] 14.7 % 11.5 - 15.0 % [facility] Hematocrit (Bld) [Volume fraction] 30.4 % Low 35.0 - 47.0 % [facility] Hemoglobin (Bld) [Mass/Vol] 9.7 g/dL Low 11.7 - 16.0 g/dL [facility] Immature granulocytes (Bld) [#/Vol] 0 10*3/uL NINF - 0.1 10*3/uL [facility] Immature granulocytes/100 WBC (Bld) 0.1 % 0.0 - 2.0 % [facility] Interpretation and review of laboratory results Abnormal [facility] Lymphocytes (Bld) [#/Vol] 0.8 10*3/uL Low 1.0 - 4.3 10*3/uL [facility] Lymphocytes/100 WBC (Bld) 11.3 % Low 15.0 - 45.0 % [facility] MCH (RBC) [Entitic mass] 28.4 pg 26.0 - 34.0 pg [facility] MCHC (RBC) [Mass/Vol] 31.9 % 30.5 - 36.0 % [facility] MCV (RBC) [Entitic vol] 89.1 fL 77.0 - 99.0 fL [facility] Monocytes (Bld) [#/Vol] 0.8 10*3/uL 0.0 - 0.9 10*3/uL [facility] Monocytes/100 WBC (Bld) 10.8 % 5.0 - 13.0 % [facility] Neutrophils (Bld) [#/Vol] 5.4 10*3/uL 1.8 - 7.5 10*3/uL [facility] Neutrophils/100 WBC (Bld) 77.6 % 38.0 - 82.0 % [facility] Nucleated RBC/100 WBC (Bld) [Ratio] 0 % [facility] Platelet mean volume (Bld) [Entitic vol] 9.5 fL 9.0 - 12.7 fL [facility] Platelets (Bld) [#/Vol] 233 10*3/uL 140 - 440 10*3/uL [facility] RBC (Bld) [#/Vol] 3.41 10*6/uL Low 3.80 - 5.2 0 10*6/uL [facility] WBC (Bld) [#/Vol] 7 10*3/uL 3.6 - 10.7 10*3/uL [facility] CBC WITH AUTO DIFFERENTIALon 08-28-2024 Basophils (Bld) [#/Vol] 0.0 10*3/uL Normal 0.0-0.2 [facility] Comment on above: Performed By: #### L [id number] ####Nut Feeder: DARELL CLEMENS ([phone])[facility] [place] (SBHLAB)[address] Basophils/100 WBC (Bld) 0.1 % Normal 0.0-2.0 [facility] Comment on above: Performed By: #### L [id number] ####Nut Feeder: DARELL CLEMENS ([phone])[facility] [place] (SBHLAB)[address] [place] [address] Eosinophils (Bld) [#/Vol] 0.0 10*3/uL Normal 0.0-0.5 [facility] Comment on above: Performed By: #### L [id number] ####Nut Feeder: DARELL CLEMENS ([phone])[facility] [place] (SBHLAB)[address] [place] [address] Eosinophils/100 WBC (Bld) 0.1 % Normal 0.0-6.0 [facility] Comment on above: Performed By: #### L [id number] ####Nut Feeder: DARELL CLEMENS ([phone])[facility] [place] (SBHLAB)[address] [place] [address] Erythrocyte distribution width (RBC) [Ratio] 14.7 % Normal 11.5-15.0 [facility] Comment on above: Performed By: #### L [id number] ####Nut Feeder: DARELL CLEMENS ([phone])[facility] [place] (SBHLAB)[address] [place] [address] Hematocrit (Bld) [Volume fraction] 30.4 % Low 35.0-47.0 [facility] Comment on above: Performed By: #### L [id number] ####Nut Feeder: DARELL CLEMENS ([phone])[facility] ([facility])[address] [place] [address] Hemoglobin (Bld) [Mass/Vol] 9.7 g/dL Low 11.7-16.0 [facility] Comment on above: Performed By: #### L [id number] ####Nut Feeder: DARELL CLEMENS ([phone])[facility])[address] IMMATURE GRANS % 0.1 % Normal 0.0-2.0 [facility] Comment on above: Performed By: #### L [id number] ####Nut Feeder: DARELL CLEMENS ([phone])[facility] ([facility])[address] [place] [address] IMMATURE GRANS ABSOLUTE 0.0 10*3/uL Normal <0.1 [facility] Comment on above: Performed By: #### L [id number] ####Nut Feeder: DARELL CLEMENS ([phone])[facility] ([facility])[address] [place] [address] Lymphocytes (Bld) [#/Vol] 0.8 10*3/uL Low 1.0-4.3 [facility] Comment on above: Performed By: #### L [id number] ####Nut Feeder: DARELL CLEMENS ([phone])[facility])[address] [place] [address] Lymphocytes/100 WBC (Bld) 11.3 % Low 15.0-45.0 [facility] Comment on above: Performed By: #### L [id number] ####Nut Feeder: DARELL CLEMENS ([phone])[facility] ([facility])[address] [place] [address] MCH (RBC) [Entitic mass] 28.4 pg Normal 26.0-34.0 [facility] Comment on above: Performed By: #### L [id number] ####Nut Feeder: DARELL CLEMENS ([phone])[facility] ([facility])[address] MCHC 31.9 % Normal 30.5-36.0 [facility] Comment on above: Performed By: #### L [id number] ####Nut Feeder: DARELL MCCANNSHAYLA ([phone])[facility] [place] (SBHLAB)[address] MCV (RBC) [Entitic vol] 89.1 fL Normal 77.0-99.0 [facility] Comment on above: Performed By: #### L [id number] ####Nut Feeder: DARELL MCCANNSHAYLA ([phone])[facility]ENTERInd[facility] [place] (SBHLAB)[address] [place] [address] Monocytes (Bld) [#/Vol] 0.8 10*3/uL Normal 0.0-0.9 [facility] Comment on above: Performed By: #### L [id number] ####Nut Feeder: DARELL CLEMENS ([phone])[facility]ENTER[facility] [place] (SBHLAB)[address] Monocytes/100 WBC (Bld) 10.8 % Normal 5.0-13.0 [facility] Comment on above: Performed By: #### L [id number] ####Nut Feeder: DARELL CLEMENS ([phone])[facility] [place] (SBHLAB)[address] [place] [address] NEUTROPHILS ABSOLUTE 5.4 10*3/uL Normal 1.8-7.5 [facility] Comment on above: Performed By: #### L [id number] ####Nut Feeder: DARELL CLEMENS ([phone])[facility] [place] (SBHLAB)[address] Neutrophils/100 WBC (Bld) 77.6 % Normal 38.0-82.0 [facility] Comment on above: Performed By: #### L [id number] ####Nut Feeder: DARELL BABCOCKStormSHAYLA ([phone])[facility] [place] (SBHLAB)[address] NRBC 0.0 /100 WBCs Normal 0.0-2.0 [facility] Comment on above: Performed By: #### L [id number] ####Nut Feeder: DARELL BABCOCKSCOTT ([phone])[facility] [place] (SBHLAB)[address] Platelet mean volume (Bld) [Entitic vol] 9.5 fL Normal 9.0-12.7 [facility] Comment on above: Performed By: #### L [id number] ####Nut Feeder: DARELL YAKOV ([phone])[facility] (SBHLAB)[address] Platelets (Bld) [#/Vol] 233 10*3/uL Normal 140-440 [facility] Comment on above: Performed By: #### L [id number] ####Nut Feeder: DARELL MCCANNSHAYLA ([id number])[facility]A [facility] (SB[facility])[address] RBC (Bld) [#/Vol] 3.41 10*6/uL Low 3.80-5.20 [facility] Comment on above: Performed By: #### L [id number] ####Nut Feeder: DARELL MCCANNSHAYLA ([phone])[facility] [place] (SBHLAB)[address] WBC (Bld) [#/Vol] 7.0 10*3/uL Normal 3.6-10.7 [facility] Comment on above: Performed By: #### L [id number] ####Nut Feeder: DARELL MCCANNSHAYLA ([phone])[facility] [place] (SBHLAB)[address] COMPREHENSIVE METABOLIC PANE Roni 08-28-2024 Albumin [Mass/Vol] 3.1 g/dL Low 3.4-4.8 [facility] Comment on above: Performed By: #### L [id number] ####Nut Feeder: DARELL CLEMENS ([phone])[facility] [place] (SB[facility])[address] ALP [Catalytic activity/Vol] 50 U/L Normal 40-150 [facility] Comment on above: Performed By: #### L [id number] ####Nut Feeder: DARELL CLEMENS ([id number])[facility] [place] (SB[facility])[address] ALT [Catalytic activity/Vol] 24 U/L Normal <30 [facility] Comment on above: Performed By: #### L [id number] ####Nut Feeder: DARELL CLEMENS ([phone])[facility])[address] Anion gap [Moles/Vol] 11 mmol/L Normal 3-13 [facility] Comment on above: Performed By: #### L [id number] ####Nut Feeder: DARELL CLEMENS ([phone])[facility] (HLAB)[address] AST [Catalytic activity/Vol] 24 U/L Normal <34 [facility] Comment on above: Performed By: #### L [id number] ####Nut Feeder: DARELL CLEMENS ([phone])[facility] (HLAB)[address] Bilirubin [Mass/Vol] 0.5 mg/dL Normal <1.2 [facility] Comment on above: Performed By: #### L [id number] ####Nut Feeder: DARELL CLEMENS ([phone])[facility] (HLAB)[address] Calcium [Mass/Vol] 8.4 mg/dL Low 8.8-10.0 [facility] Comment on above: Performed By: #### L [id number] ####Nut Feeder: DARELL CLEMENS ([phone])[facility] CENTERIndio [facility] (SBHLAB)[address] Chloride [Moles/Vol] 103 mmol/L Normal 98-107 [facility] Comment on above: Performed By: #### L [id number] ####Nut Feeder: DARELL CLEMENS ([phone])[facility] (SBHLAB)[address] CO2 [Moles/Vol] 21 mmol/L Low 23-31 [facility] Comment on above: Performed By: #### L [id number] ####Nut Feeder: DARELL CLEMENS ([phone])[facility] ([facility])[address] Creatinine [Mass/Vol] 1.10 mg/dL Normal 0.57-1.11 [facility] Comment on above: Performed By: #### L [id number] ####Nut Feeder: DARELL CLEMENS ([phone])[facility] CENTERInd[facility] ([facility])[address] GLOMERULAR FILTRATION RATE ML/MIN/1.73 SQ M.PREDICTED 51.5 mL/min/1.73m*2 Low >60.0 [facility] Comment on above: Result Comment: Calc ulation based on the Chronic Kidney Disease Epidemiology Collaboration (CKD-EPI) equation refit without adjustment for race Performed By: #### L [id number] ####Nut Feeder: DARELL CLEMENS ([phone])[facility] CENTERIndio [facility] ([facility])[address] Glucose [Mass/Vol] 155 mg/dL High 82-115 [facility] Comment on above: Performed By: #### L [id number] ####Nut Feeder: DARELL CLEMENS ([id number])[facility] ([facility])[address] Potassium [Moles/Vol] 3.7 mmol/L Normal 3.5-5.1 [facility] Comment on above: Result Comment: Plas ma potassium values may be up to 0.5 mmol/L lower than serum values. Performed By: #### L [id number] ####Nut Feeder: DARELL URBANCER ([phone])[facility] (SBHLAB)[address] Protein [Mass/Vol] 6.0 g/dL Low 6.4-8.3 [facility] Comment on above: Performed By: #### L [id number] ####Nut Feeder: DARELL MCCANNSHAYLA ([phone])[facility] (SB[facility])[address] Sodium [Moles/Vol] 135 mmol/L Low 136-145 [facility] Comment on above: Performed By: #### L [id number] ####Nut Feeder: DARELL MCCANNSHAYLA ([phone])[facility] (SBHLAB)[address] [place] [address] Urea nitrogen [Mass/Vol] 28 mg/dL High 9-23 [facility] Comment on above: Performed By: #### L [id number] ####Nut Feeder: DARELL BABCOCKSCOTT ([phone])[facility] (HLAB)[address] Comprehensive metabolic 1998 panelon 08-28-2024 Albumin [Mass/Vol] 3.1 g/dL Low 3.4 - 4.8 g/dL [facility] ALP [Catalytic activity/Vol] 50 U/L 40 - 150 U/L [facility] ALT [Catalytic activity/Vol] 24 U/L NINF - 30 U/L [facility] Anion gap [Moles/Vol] 11 mmol/L 3 - 13 mmol/L [facility] AST [Catalytic activity/Vol] 24 U/L NINF - 34 U/L [facility] Bilirubin [Mass/Vol] 0.5 mg/dL NINF - 1.2 mg/dL [facility] Calcium [Mass/Vol] 8.4 mg/dL Low 8.8 - 10. 0 mg/dL [facility] Chloride [Moles/Vol] 103 mmol/L 98 - 10 7 mmol/L [facility] CO2 [Moles/Vol] 21 mmol/L Low 23 - 31 mmol/L [facility] Creatinine [Mass/Vol] 1.1 mg/dL 0.57 - 1.11 mg/dL [facility] GFR/1.73 sq M.predicted (S/P/Bld) [Vol rate/Area] 51.5 mL/min Low - PINF [facility] Comment on above: Calculation based on the Chronic Kidney Disease Epidemiology Collaboration (CKD-EPI) equation refit without adjustment for race Glucose [Mass/Vol] 155 mg/dL High 82 - 115 mg/dL [facility] Interpretation and review of laboratory results Abnormal [facility] Potassium [Moles/Vol] 3.7 mmol/L 3.5 - 5.1 mmol/L [facility] Comment on above: Plasma potassium kamryn ues may be up to 0.5 mmol/L lower than serum values. Protein [Mass/Vol] 6 g/dL Low 6.4 - 8.3 g/dL [facility] Sodium [Moles/Vol] 135 mmol/L Low 136 - 145 mmol/L [facility] [employer] Urea nitrogen [Mass/Vol] 28 mg/dL High 9 - 23 mg/dL [facility] Laboratory - Chemistry and C hemistry - challengeon 08-28-2024 Glucose [Mass/Vol] 281 mg/dL High 70 - 100 mg/dL [facility] [employer] Glucose [Mass/Vol] 265 mg/dL High 70 - 100 mg/dL [facility] Glucose [Mass/Vol] 293 mg/dL High 70 - 100 mg/dL [facility] Glucose [Mass/Vol] 191 mg/dL High 70 - 100 mg/dL [facility] [employer] Glucose [Mass/Vol] 121 mg/dL High 70 - 100 mg/dL [facility] Glucose [Mass/Vol] 135 mg/dL High 70 - 100 mg/dL [facility] No Panel Informationon 08-28 Interpretation and review of laboratory results Abnormal [facility] Performed by: [facility], [address] [place] [address] CLIA ID: [id number] [facility] Interpretation and review of laboratory results Abnormal [facility] Performed by: [facility], [address] [facility] [address] CLIA ID: [id number] [facility] Interpretation and review of laboratory results Abnormal [facility] Performed by: [facility], [address], [facility] [address] CLIA ID: [id number] [facility] Interpretation and review of laboratory results Abnormal [facility] Performed by: [facility], [address], [facility] [address] CLIA ID: [id number] [facility] Interpretation and review of laboratory results Abnormal [facility] Performed by: [facility], [address], [facility] [address] CLIA ID: [id number] [facility] Interpretation and review of laboratory results Abnormal [facility] Performed by: [facility], [address], [facility] [address] CLIA ID: [id number] [facility] Extra Tube Hold for add-ons. [facility] Comment on above: Auto resulted. [facility] No Panel InformationOrdered By: Fawn Rosales on 08-28-2024 Interpretation and review of laboratory results Normal [facility] Legionella pneumophila Ag Not detected Not Detected [facility] Streptococcus pneumoniae Ag Not detected Not Detected [facility] Methodology: Lateral flow enzyme immunoassay This assay is approved for detection of antigens to Streptococcus pneumoniae and Legionella pneumophila serogroup 1; however, other L. pneumophila serogroups may also be detected. [facility] Progress Noteon 08-28-2024 Progress Note Normal [facility] Progress Note Normal [facility] Progress Note Nutrition rescreen complete. Pt assigned a level one for nutrition care. Normal [facility] Respiratory pathogens DNA an d RNA panel CYNDI+non-probe (Nph)on 08-28-2024 Adenovirus Not detected Not Detected [facility] B. pertussis DNA CYNDI+probe Ql (Unsp spec) Not detected Not Detected [facility] Bordetella parapertussis Not detected Not Detected [facility] Chlamydia pneumoniae Not detected Not Detected [facility] Coronavirus 229E Not detected Not Detected [facility] Coronavirus HKU1 Not detected Not Detected [facility] Coronavirus NL63 Not detected Not Detected [facility] Coronavirus OC43 Not detected Not Detected [facility] FLUAV RNA CYNDI+non-probe Ql (Nph) Not detected Not Detected [facility] FLUBV RNA CYNDI+non-probe Ql (Nph) Not detected Not Detected [facility] Human Metapneumovirus Not detected Not Detected [facility] Human Rhinovirus/Enterovirus Not detected Not Detected [facility] Interpretation and review of laboratory results Normal [facility] Mycoplasma pneumoniae Not detected Not Detected [facility] Parainfluenza 1 Not detected Not Detected [facility] Parainfluenza 2 Not detected Not Detected [facility] Parainfluenza 3 Not detected Not Detected [facility] Parainfluenza 4 Not detected Not Detected [facility] Respiratory Syncytial Virus Not detected Not Detected [facility] SARS-CoV-2 (COVID-19) RNA CYNDI+non-probe Ql (Nph) Not detected Not Detected [facility] Methodology: Multipl ex PCR [facility] XR Chest Single viewon 08-28 1. Lines/Tubes/Devices/Ananda dware: Leads noted. Please confirm position and function of any catheters or attempted catheters clinically. 2. Lungs: Persistent suspected infiltrate right lower lobe.. Limited due to portable technique. Consider follow-up with PA and lateral chest for persistent symptoms. 3. Pleura: Small effusion. No significant pneumothorax. 4. Heart and mediastinum: Limited due to technique. 5. Upper abdomen: No acute process seen. 6. Thorax:No acute bony process Report Dictated on Electronically Signed By: Ryan Ramirez MD Electronically Signed Date/Time: 08/28/2024 5:28 AM EST [facility] RADIOLOGY SYSTEM Patient Name: ROLANDO PETERS : 1945 Exam Date/Time: 08/28/2024 04:39 Procedure: XR CHEST 1 VIEW Ordering Provider: WILSON HASSAN Reason For Exam: HYPOXIA EXAM TYPE: RADIOLOGIC EXAMINATION, CHEST, SINGLE VIEW FRONTAL (CXR SINGLE VIEW) EXAM DATE AND TIME: 08/28/2024 4:39 AM EST INDICATION: Respiratory distress COMPARISON: 08/27/2024 TECHNIQUE: A single frontal view of the thorax was obtained and reviewed. Special views: None. [facility] [employer]L [employer] Ryan Ramirez MD - 08/28/2024 Patient Name: ROLANDO PETERS : 1945 Exam Date/Time: 08/28/2024 04:39 Procedure: XR CHEST 1 VIEW Ordering Provider: WILSON HASSAN Reason For Exam: HYPOXIA EXAM TYPE: RADIOLOGIC EXAMINATION, CHEST, SINGLE VIEW FRONTAL (CXR SINGLE VIEW) EXAM DATE AND TIME: 08/28/2024 4:39 AM EST INDICATION: Respiratory distress COMPARISON: 08/27/2024 TECHNIQUE: A single frontal view of the thorax was obtained and reviewed. Special views: None. IMPRESSION: 1. Lines/Tubes/Devices/Ananda dware: Leads noted. Please confirm position and function of any catheters or attempted catheters clinically. 2. Lungs: Persistent suspected infiltrate right lower lobe.. Limited due to portable technique. Consider follow-up with PA and lateral chest for persistent symptoms. 3. Pleura: Small effusion. No significant pneumothorax. 4. Heart and mediastinum: Limited due to technique. 5. Upper abdomen: No acute process seen. 6. Thorax:No acute bony process Report Dictated on Electronically Signed By: Ryan Ramirez MD Electronically Signed Date/Time: 08/28/2024 5:28 AM EST [facility] Radiology Study observation (narrative) [facility] franklyn XR Chest Single viewOrdered By: Ryan Ramirez on 08-28-2024 [facility] [employer] Work Phone: 30on 08-27-2024 30 Normal [facility] CBC W Auto Differential pane l (Bld)on 08-27-2024 Basophils (Bld) [#/Vol] 0 10*3/uL 0.0 - 0.2 10*3/uL [facility] Basophils/100 WBC (Bld) 0.3 % 0.0 - 2.0 % [facility] Eosinophils (Bld) [#/Vol] 0 10*3/uL 0.0 - 0.5 10*3/uL [facility] Eosinophils/100 WBC (Bld) 0.4 % 0.0 - 6.0 % [facility] Erythrocyte distribution width (RBC) [Ratio] 14.6 % 11.5 - 15.0 % [facility] Hematocrit (Bld) [Volume fraction] 29.6 % Low 35.0 - 47.0 % [facility] Hemoglobin (Bld) [Mass/Vol] 9.5 g/dL Low 11.7 - 16.0 g/dL [facility] [employer] Immature granulocytes (Bld) [#/Vol] 0 10*3/uL NINF - 0.1 10*3/uL [facility] Health Immature granulocytes/100 WBC (Bld) 0.3 % 0.0 - 2.0 % [facility] Interpretation and review of laboratory results Abnormal [facility] Lymphocytes (Bld) [#/Vol] 1 10*3/uL 1.0 - 4.3 10*3/uL [facility] Health Lymphocytes/100 WBC (Bld) 12.9 % Low 15.0 - 45.0 % [facility] MCH (RBC) [Entitic mass] 28.8 pg 26.0 - 34.0 pg [facility] MCHC (RBC) [Mass/Vol] 32.1 % 30.5 - 36.0 % [facility] MCV (RBC) [Entitic vol] 89.7 fL 77.0 - 99.0 fL [facility] Monocytes (Bld) [#/Vol] 0.7 10*3/uL 0.0 - 0.9 10*3/uL [facility] Monocytes/100 WBC (Bld) 9.4 % 5.0 - 13.0 % [facility] Neutrophils (Bld) [#/Vol] 5.8 10*3/uL 1.8 - 7.5 10*3/uL [facility] Neutrophils/100 WBC (Bld) 76.7 % 38.0 - 82.0 % [facility] Nucleated RBC/100 WBC (Bld) [Ratio] 0 % [facility] Platelet mean volume (Bld) [Entitic vol] 9.9 fL 9.0 - 12.7 fL [facility] [employer] Platelets (Bld) [#/Vol] 225 10*3/uL 140 - 440 10*3/uL [facility] RBC (Bld) [#/Vol] 3.3 10*6/uL Low 3.80 - 5.2 0 10*6/uL [facility] WBC (Bld) [#/Vol] 7.6 10*3/uL 3.6 - 10.7 10*3/uL [facility] Health CBC WITH AUTO DIFFERENTIALon 08-27-2024 Basophils (Bld) [#/Vol] 0.0 10*3/uL Normal 0.0-0.2 [facility] Comment on above: Performed By: #### L [id number] ####Nut Feeder: DARELL CLEMENS ([phone])[facility] (SBHLAB)[address] Basophils/100 WBC (Bld) 0.3 % Normal 0.0-2.0 [facility] Comment on above: Performed By: #### L [id number] ####Nut Feeder: DARELL CLEMENS ([phone])[facility] (SBHLAB)[address] Eosinophils (Bld) [#/Vol] 0.0 10*3/uL Normal 0.0-0.5 [facility] Comment on above: Performed By: #### L [id number] ####Nut Feeder: DARELL CLEMENS ([phone])[facility] [place] (SBHLAB)[address] Eosinophils/100 WBC (Bld) 0.4 % Normal 0.0-6.0 [facility] Comment on above: Performed By: #### L [id number] ####Nut Feeder: DARELL CLEMENS ([phone])[facility] [place] (SBHLAB)[address] [place] [address] Erythrocyte distribution width (RBC) [Ratio] 14.6 % Normal 11.5-15.0 [facility] Comment on above: Performed By: #### L [id number] ####Nut Feeder: DARELL CLEMENS ([phone])[facility] (SBHLAB)[address] [place] [address] Hematocrit (Bld) [Volume fraction] 29.6 % Low 35.0-47.0 [facility] Comment on above: Performed By: #### L [id number] ####Nut Feeder: DARELL CLEMENS ([phone])[facility] [place] (SBHLAB)[address] [place] [address] Hemoglobin (Bld) [Mass/Vol] 9.5 g/dL Low 11.7-16.0 [facility] Comment on above: Performed By: #### L [id number] ####Nut Feeder: DARELL CLEMENS ([phone])[facility] (SBHLAB)[address] IMMATURE GRANS % 0.3 % Normal 0.0-2.0 [facility] Comment on above: Performed By: #### L [id number] ####Nut Feeder: DARELL CLEMENS ([phone])[facility] (SBHLAB)[address] IMMATURE GRANS ABSOLUTE 0.0 10*3/uL Normal <0.1 [facility] Comment on above: Performed By: #### L [id number] ####Nut Feeder: DARELL CLEMENS ([phone])[facility] (SBAB)[address] [place] [address] Lymphocytes (Bld) [#/Vol] 1.0 10*3/uL Normal 1.0-4.3 [facility] Comment on above: Performed By: #### L [id number] ####Nut Feeder: DARELL CLEMENS ([phone])[facility] (SBHLAB)[address] [place] [address] Lymphocytes/100 WBC (Bld) 12.9 % Low 15.0-45.0 [facility] Comment on above: Performed By: #### L [id number] ####Nut Feeder: DARELL CLEMENS ([phone])[facility] (SBHLAB)[address] MCH (RBC) [Entitic mass] 28.8 pg Normal 26.0-34.0 [facility] Comment on above: Performed By: #### L [id number] ####Nut Feeder: DARELL CLEMENS ([phone])[facility] (SBHLAB)[address] MCHC 32.1 % Normal 30.5-36.0 [facility] Comment on above: Performed By: #### L [id number] ####Nut Feeder: DARELL CLEMENS ([phone])[facility] (SBHLAB)[address] MCV (RBC) [Entitic vol] 89.7 fL Normal 77.0-99.0 [facility] Comment on above: Performed By: #### L [id number] ####Nut Feeder: DARELL CLEMENS ([phone])[facility] [place] (SBHLAB)[address] Monocytes (Bld) [#/Vol] 0.7 10*3/uL Normal 0.0-0.9 [facility] Comment on above: Performed By: #### L [id number] ####Nut Feeder: DARELL CLEMENS ([phone])[facility] [place] (SBHLAB)[address] Monocytes/100 WBC (Bld) 9.4 % Normal 5.0-13.0 [facility] Comment on above: Performed By: #### L [id number] ####Nut Feeder: DARELL CLEMENS ([phone])[facility] [place] (SBHLAB)[address] NEUTROPHILS ABSOLUTE 5.8 10*3/uL Normal 1.8-7.5 [facility] Comment on above: Performed By: #### L [id number] ####Nut Feeder: DARELL CLEMENS ([phone])[facility] [place] (SBHLAB)[address] Neutrophils/100 WBC (Bld) 76.7 % Normal 38.0-82.0 [facility] Comment on above: Performed By: #### L [id number] ####Nut Feeder: DARELL CLEMENS ([phone])[facility] [place] (SBHLAB)[address] NRBC 0.0 /100 WBCs Normal 0.0-2.0 [facility] Comment on above: Performed By: #### L [id number] ####Nut Feeder: DARELL MCCANNSHAYLA ([phone])[facility] CENTERIndio [facility] (SBHLAB)[address] Platelet mean volume (Bld) [Entitic vol] 9.9 fL Normal 9.0-12.7 [facility] Comment on above: Performed By: #### L [id number] ####Nut Feeder: DARELL CLEMENS ([phone])[facility] (SBHLAB)[address] Platelets (Bld) [#/Vol] 225 10*3/uL Normal 140-440 [facility] Comment on above: Performed By: #### L [id number] ####Nut Feeder: DARELL MCCANNSHAYLA ([phone])[facility] CENTERIndio [place] (SBHLAB)[address] [place] [address] RBC (Bld) [#/Vol] 3.30 10*6/uL Low 3.80-5.20 [facility] Comment on above: Performed By: #### L [id number] ####Nut Feeder: DARELL CLEMENS ([phone])[facility] CENTERIndio [facility] (SBHLAB)[address] WBC (Bld) [#/Vol] 7.6 10*3/uL Normal 3.6-10.7 [facility] Comment on above: Performed By: #### L [id number] ####Nut Feeder: DARELL CLEMENS ([phone])[facility] (SBHLAB)[address] COMPREHENSIVE METABOLIC PANE Roni 08-27-2024 Albumin [Mass/Vol] 3.2 g/dL Low 3.4-4.8 [facility] Comment on above: Performed By: #### L [id number] ####Nut Feeder: DARELL CLEMENS ([phone])[facility] (SBHLAB)[address] ALP [Catalytic activity/Vol] 52 U/L Normal 40-150 [facility] Comment on above: Performed By: #### L [id number] ####Nut Feeder: DARELL CLEMENS ([phone])[facility] [place] (SBHLAB)[address] ALT [Catalytic activity/Vol] 28 U/L Normal <30 [facility] Comment on above: Performed By: #### L [id number] ####Nut Feeder: DARELL CLEMENS ([phone])[facility] (SBHLAB)[address] Anion gap [Moles/Vol] 11 mmol/L Normal 3-13 [facility] Comment on above: Performed By: #### L [id number] ####Nut Feeder: DARELL CLEMENS ([phone])[facility] (SBHLAB)[address] AST [Catalytic activity/Vol] 28 U/L Normal <34 [facility] Comment on above: Performed By: #### L [id number] ####Nut Feeder: DARELL CLEMENS ([phone])[facility] [place] (SBHLAB)[address] Bilirubin [Mass/Vol] 0.5 mg/dL Normal <1.2 [facility] Comment on above: Performed By: #### L [id number] ####Nut Feeder: DARELL CLEMENS ([phone])[facility] (SBHLAB)[address] Calcium [Mass/Vol] 8.7 mg/dL Low 8.8-10.0 [facility] Comment on above: Performed By: #### L [id number] ####Nut Feeder: DARELL CLEMENS ([phone])[facility] (SBHLAB)[address] Chloride [Moles/Vol] 105 mmol/L Normal 98-107 [facility] Comment on above: Performed By: #### L [id number] ####Nut Feeder: DARELL CLEMENS ([phone])[facility] [place] (SBHLAB)[address] CO2 [Moles/Vol] 20 mmol/L Low 23-31 [facility] Comment on above: Performed By: #### L [id number] ####Nut Feeder: DARELL CLEMENS ([phone])[facility] (SBHLAB)[address] Creatinine [Mass/Vol] 1.01 mg/dL Normal 0.57-1.11 [facility] Comment on above: Performed By: #### L [id number] ####Nut Feeder: DARELL CLEMENS ([phone])[facility]A [facility] (SBHLAB)[address] GLOMERULAR FILTRATION RATE ML/MIN/1.73 SQ M.PREDICTED 57.1 mL/min/1.73m*2 Low >60.0 [facility] Comment on above: Result Comment: Calc ulation based on the Chronic Kidney Disease Epidemiology Collaboration (CKD-EPI) equation refit without adjustment for race Performed By: #### L [id number] ####Nut Feeder: DARELL CLEMENS ([phone])[facility] (SBHLAB)[address] [place] [address] Glucose [Mass/Vol] 108 mg/dL Normal 82-115 [facility] Comment on above: Performed By: #### L [id number] ####Nut Feeder: DARELL CLEMENS ([phone])[facility]BGALL[facility] (SBHLAB)[address] Potassium [Moles/Vol] 4.3 mmol/L Normal 3.5-5.1 [facility] Comment on above: Result Comment: [facility] potassium values may be up to 0.5 mmol/L lower than serum values. Performed By: #### L [id number] ####Nut Feeder: DARELL CLEMENS ([phone])[facility] (SBHLAB)[address] Protein [Mass/Vol] 6.1 g/dL Low 6.4-8.3 [facility] Comment on above: Performed By: #### L [id number] ####Nut Feeder: DARELL CLEMENS ([id number])[facility] CENTERIndio [place] (SBHLAB)[address] Sodium [Moles/Vol] 136 mmol/L Normal 136-145 [facility] Comment on above: Performed By: #### L [id number] ####Nut Feeder: DARELL BABCOCKSCOTT ([phone])[facility]ENTERIndio [facility] (SBHLAB)[address] Urea nitrogen [Mass/Vol] 28 mg/dL High 9-23 [facility] Comment on above: Performed By: #### L [id number] ####Nut Feeder: DARELL YAKOV ([phone])[facility] (SBHLAB)[address] [place] [address] Comprehensive metabolic 1998 panelon 08-27-2024 Albumin [Mass/Vol] 3.2 g/dL Low 3.4 - 4.8 g/dL [facility] ALP [Catalytic activity/Vol] 52 U/L 40 - 150 U/L [facility] ALT [Catalytic activity/Vol] 28 U/L NINF - 30 U/L [facility] Anion gap [Moles/Vol] 11 mmol/L 3 - 13 mmol/L [facility] AST [Catalytic activity/Vol] 28 U/L NINF - 34 U/L [facility] Bilirubin [Mass/Vol] 0.5 mg/dL NINF - 1.2 mg/dL [facility] Calcium [Mass/Vol] 8.7 mg/dL Low 8.8 - 10. 0 mg/dL [facility] Chloride [Moles/Vol] 105 mmol/L 98 - 10 7 mmol/L [facility] CO2 [Moles/Vol] 20 mmol/L Low 23 - 31 mmol/L [facility] Creatinine [Mass/Vol] 1.01 mg/dL 0.57 - 1.11 mg/dL [facility] GFR/1.73 sq M.predicted (S/P/Bld) [Vol rate/Area] 57.1 mL/min Low - PINF [facility] Comment on above: Calculation based on the Chronic Kidney Disease Epidemiology Collaboration (CKD-EPI) equation refit without adjustment for race Glucose [Mass/Vol] 108 mg/dL 82 - 115 mg/dL [facility] Interpretation and review of laboratory results Abnormal [facility] Potassium [Moles/Vol] 4.3 mmol/L 3.5 - 5.1 mmol/L [facility] Comment on above: Plasma potassium kamryn ues may be up to 0.5 mmol/L lower than serum values. Protein [Mass/Vol] 6.1 g/dL Low 6.4 - 8.3 g/dL [facility] Sodium [Moles/Vol] 136 mmol/L 136 - 145 mmol/L [facility] Urea nitrogen [Mass/Vol] 28 mg/dL High 9 - 23 mg/dL [facility] Health Consulton 08-27-2024 Consult Normal [facility] Consult Normal [facility] LEGIONELLA AND STREPTOCOCCUS URINE ANTIGENon 08-27-2024 LEGIONELLA AND STREPTOCOCCUS URINE ANTIGEN Normal [facility] Comment on above: Performed By: #### L [id number] ####Nut Feeder: RAIZA CONTRERAS ([phone])[facility] ([id number] Laboratory - Chemistry and C hemistry - challengeon 08-27-2024 Glucose [Mass/Vol] 193 mg/dL High 70 - 100 mg/dL [facility] Procalcitonin [Mass/Vol] 0.05 ng/mL NINF - 0.07 ng/mL [facility] Glucose [Mass/Vol] 313 mg/dL High 70 - 100 mg/dL [facility] Glucose [Mass/Vol] 241 mg/dL High 70 - 100 mg/dL [facility] Glucose [Mass/Vol] 95 mg/dL 70 - 100 mg/dL [facility] No Panel Informationon 08-27 Interpretation and review of laboratory results Abnormal [facility] Performed by: [facility], [address] [place] [id number] CLIA ID: [id number] [facility] Interpretation and review of laboratory results Abnormal [facility] Performed by: [facility], [address] [place] [id number] CLIA ID: [id number] [facility] Interpretation and review of laboratory results Abnormal [facility] Performed by: [facility], [address] [place] [address] CLIA ID: [id number] [facility] Interpretation and review of laboratory results Normal [facility] Performed by: [facility], [address] [place] [address] CLIA ID: [id number] [facility] PROCALCITONIN TESTon 025 PROCALCITONIN 0.05 ng/mL Normal <0.07 [facility] Comment on above: Result Comment: SANDRA Tierney COMMENTS:PCT <0.50 = Low risk of severe sepsis and/or septic shock.PCT >2.00 = High risk of severe sepsis and/or septic shock. Performed By: #### L [id number] ####Nut Feeder: DARELL CLEMENS ([phone])[facility] ([facility])[address] [place] [address] Procalcitonin [Mass/Vol]on 0 08-27-2024 Interpretation and review of laboratory results Normal [facility] PCT <0.50 = Low risk of severe sepsis and/or septic shock. PCT >2.00 = High risk of severe sepsis and/or septic shock. [facility] Progress Noteon 08-27-2024 Progress Note Normal [facility] RESPIRATORY PATHOGENS PANEL BY PCRon 08-27-2024 RESPIRATORY PATHOGENS PANEL BY PCR Normal [facility] Comment on above: Performed By: #### L [id number] ####Nut Feeder: RAIZA CONTRERAS ([phone])[facility] ([facility])[address] [place] [address] XR Chest Single viewon 08-27 1. Pleural effusions . 2. Reticular opacities, possibly interstitial edema 3. No new abnormality Report Dictated on Electronically Signed By: Stan Adhikari MD Electronically Signed Date/Time: 08/27/2024 5:56 AM [facility] RADIOLOGY SYSTEM Patient Name: ROLANDO PETERS : 1945 Exam Date/Time: 08/27/2024 05:00 Procedure: XR CHEST 1 VIEW Ordering Provider: GARZA ERIC Reason For Exam: DYSPNEA EXAM: XR Chest, 1 View CLINICAL INDICATION: DYSPNEA TECHNIQUE: Frontal view of the chest. COMPARISON: One day ago FINDINGS: Limitations: EKG leads overlie the chest obscuring small portions of the lungs. Lungs and pleural spaces: Reticular opacities throughout the lungs. Hazy increased density in the right lower hemithorax with blunting of the costophrenic angle, corresponding to pleural fluid. Minor blunting of left costophrenic angle also represent some pleural fluid. Vague increased density in the left mid hemithorax overlying the scapula corresponds to region of nodules noted on CT. Heart: Unremarkable. No cardiomegaly. Mediastinum: Atherosclerotic calcification of aorta Bones/joints: Unremarkable. No acute fracture. [facility] Stan Adhikari MD - 08/27/2024 Patient Name: [facility]ERS : 1945 [id number] Exam Date/Time: 08/27/2024 05:00 Procedure: XR CHEST 1 VIEW Ordering Provider: GARZA ERIC Reason For Exam: DYSPNEA EXAM: XR Chest, 1 View CLINICAL INDICATION: DYSPNEA TECHNIQUE: Frontal view of the chest. COMPARISON: One day ago FINDINGS: Limitations: EKG leads overlie the chest obscuring small portions of the lungs. Lungs and pleural spaces: Reticular opacities throughout the lungs. Hazy increased density in the right lower hemithorax with blunting of the costophrenic angle, corresponding to pleural fluid. Minor blunting of left costophrenic angle also represent some pleural fluid. Vague increased density in the left mid hemithorax overlying the scapula corresponds to region of nodules noted on CT. Heart: Unremarkable. No cardiomegaly. Mediastinum: Atherosclerotic calcification of aorta Bones/joints: Unremarkable. No acute fracture. IMPRESSION: 1. Pleural effusions. 2. Reticular opacities, possibly interstitial edema 3. No new abnormality Report Dictated on Electronically Signed By: Stan Adhikari MD Electronically Signed Date/Time: 08/27/2024 5:56 AM EST [facility] Radiology Study observation (narrative) [facility] XR Chest Single viewOrdered By: Stan Adhikari on 08-27-2024 [facility] Work Phone: CBC W Auto Differential pane l (Bld)Ordered By: Malika Paiz on 08-26-2024 Erythrocyte distribution width (RBC) [Ratio] 14.6 % 11.5 - 15.0 % [facility] Hematocrit (Bld) [Volume fraction] 31.2 % Low 35.0 - 47.0 % [facility] Hemoglobin (Bld) [Mass/Vol] 9.9 g/dL Low 11.7 - 16.0 g/dL [facility] Interpretation and review of laboratory results Abnormal [facility] MCH (RBC) [Entitic mass] 28.9 pg 26.0 - 34.0 pg [facility] MCHC (RBC) [Mass/Vol] 31.7 % 30.5 - 36.0 % [facility] MCV (RBC) [Entitic vol] 91.2 fL 77.0 - 99.0 fL [facility] Platelet mean volume (Bld) [Entitic vol] 9.7 fL 9.0 - 12.7 fL [facility] Platelets (Bld) [#/Vol] 235 10*3/uL 140 - 440 10*3/uL [facility] RBC (Bld) [#/Vol] 3.42 10*6/uL Low 3.80 - 5.2 0 10*6/uL [facility] WBC (Bld) [#/Vol] 7.9 10*3/uL 3.6 - 10.7 10*3/uL [facility] CBC WITH AUTO DIFFERENTIALon 08-26-2024 Erythrocyte distribution width (RBC) [Ratio] 14.6 % Normal 11.5-15.0 [facility] Comment on above: Performed By: #### L [id number], [id number] ####Nut Feeder: DARELL CLEMENS ([phone])[facility] ([facility])[address] [place] [address] Hematocrit (Bld) [Volume fraction] 31.2 % Low 35.0-47.0 [facility] Comment on above: Performed By: #### L [id number], [id number] ####Nut Feeder: DARELL CLEMENS ([phone])[facility] ([facility])[address] Hemoglobin (Bld) [Mass/Vol] 9.9 g/dL Low 11.7-16.0 [facility] Comment on above: Performed By: #### L [id number], [id number] ####Nut Feeder: DARELL CLEMENS ([phone])[facility] ([facility])[address] MCH (RBC) [Entitic mass] 28.9 pg Normal 26.0-34.0 [facility] Comment on above: Performed By: #### L [id number], [id number] ####Nut Feeder: DARELL CLEMENS ([phone])[facility] ([facility])[address] MCHC 31.7 % Normal 30.5-36.0 [facility] Comment on above: Performed By: #### L [id number], [id number] ####Nut Feeder: DARELL CLEMENS ([phone])[facility] ([facility])[address] MCV (RBC) [Entitic vol] 91.2 fL Normal 77.0-99.0 [facility] Comment on above: Performed By: #### L [id number], [id number] ####Nut Feeder: DARELL CLEMENS ([phone])[facility] ([facility])[address] Platelet mean volume (Bld) [Entitic vol] 9.7 fL Normal 9.0-12.7 [facility] Comment on above: Performed By: #### L [id number], [id number] ####Nut Feeder: DARELL CLEMENS ([phone])[facility] ([facility])[address] Platelets (Bld) [#/Vol] 235 10*3/uL Normal 140-440 [facility] Comment on above: Performed By: #### L [id number], [id number] ####Nut Feeder: DARELL CLEMENS ([phone])[facility] [place] ([facility])[address] RBC (Bld) [#/Vol] 3.42 10*6/uL Low 3.80-5.20 [facility] Comment on above: Performed By: #### L [id number], [id number] ####Nut Feeder: DARELL CLEMENS ([phone])[facility] ([facility])[address] WBC (Bld) [#/Vol] 7.9 10*3/uL Normal 3.6-10.7 [facility] Comment on above: Performed By: #### L [id number], [id number] ####Nut Feeder: DARELL CLEMENS ([phone])[facility] ([facility])[address] COMPREHENSIVE METABOLIC PANE Roni 08-26-2024 Albumin [Mass/Vol] 3.6 g/dL Normal 3.4-4.8 [facility] Comment on above: Performed By: #### L [id number], [id number], [id number] ####Nut Feeder: DARELL CLEMENS ([phone])[facility] [place] ([facility])[address] [place] [address] ALP [Catalytic activity/Vol] 57 U/L Normal 40-150 [facility] Comment on above: Performed By: #### L AB17, [id number], [id number] ####Nut Feeder: DARELL CLEMENS ([phone])[facility] ([facility])[address] ALT [Catalytic activity/Vol] 35 U/L High <30 [facility] Comment on above: Performed By: #### L AB17, [id number], [id number] ####Nut Feeder: DARELL CLEMENS ([phone])[facility] [place] ([facility])[address] Anion gap [Moles/Vol] 9 mmol/L Normal 3-13 [facility] Comment on above: Performed By: #### L AB17, [id number], [id number] ####Nut Feeder: DARELL CLEMENS ([phone])[facility] [place] ([facility])[address] AST [Catalytic activity/Vol] 36 U/L High <34 [facility] Comment on above: Performed By: #### L AB17, [id number], [id number] ####Nut Feeder: DARELL CLEMENS ([phone])[facility] [place] ([facility])[address] Bilirubin [Mass/Vol] 0.6 mg/dL Normal <1.2 [facility] Comment on above: Performed By: #### James TREJO, [id number], [id number] ####Nut Feeder: DARELL CLEMENS ([phone])[facility]ENTER[facility] ([facility])[address] Calcium [Mass/Vol] 8.7 mg/dL Low 8.8-10.0 [facility] Comment on above: Performed By: #### L AB17, [id number], [id number] ####Nut Feeder: DARELL CLEMENS ([phone])[facility]ENTER[facility] ([facility])[address] [place] [address] [place] Chloride [Moles/Vol] 106 mmol/L Normal 98-107 [facility] Comment on above: Performed By: #### L AB17, [id number], [id number] ####Nut Feeder: DARELL CLEMENS ([phone])[facility]ENTER[facility] [place] ([facility])[address] [place] [address] [place] CO2 [Moles/Vol] 20 mmol/L Low 23-31 [facility] Comment on above: Performed By: #### L AB17, [id number], [id number] ####Nut Feeder: DARELL CLEMENS ([phone])[facility] ([facility])[address] Creatinine [Mass/Vol] 1.02 mg/dL Normal 0.57-1.11 [facility] Comment on above: Performed By: #### James AB17, [id number], [id number] ####Nut Feeder: DARELL CLEMENS ([phone])[facility] (SB[facility])[address] GLOMERULAR FILTRATION RATE ML/MIN/1.73 SQ M.PREDICTED 56.4 mL/min/1.73m*2 Low >60.0 [facility] Comment on above: Result Comment: Calc ulation based on the Chronic Kidney Disease Epidemiology Collaboration (CKD-EPI) equation refit without adjustment for race Performed By: #### James ESTEVES17, [id number], [id number] ####Nut Feeder: DARELL CLEMENS ([phone])[facility] ([facility])[address] [place] [address] Glucose [Mass/Vol] 171 mg/dL High 82-115 [facility] Comment on above: Performed By: #### James ESTEVES17, [id number], [id number] ####Nut Feeder: DARELL CLEMENS ([phone])[facility] ([facility])[address] [place] [address] Potassium [Moles/Vol] 4.7 mmol/L Normal 3.5-5.1 [facility] Comment on above: Result Comment: [facility] potassium values may be up to 0.5 mmol/L lower than serum values. Performed By: #### L AB17, [id number], [id number] ####Nut Feeder: DARELL CLEMENS ([phone])[facility] ([facility])[address] Protein [Mass/Vol] 6.6 g/dL Normal 6.4-8.3 [facility] Comment on above: Performed By: #### L AB17, [id number], [id number] ####Nut Feeder: DARELL CLEMENS ([id number])[facility] ([facility])[address] Sodium [Moles/Vol] 135 mmol/L Low 136-145 [facility] Comment on above: Performed By: #### L AB17, [id number], [id number] ####Nut Feeder: DARELL CLEMENS ([phone])[facility] ([facility])[address] Urea nitrogen [Mass/Vol] 27 mg/dL High 9-23 [facility] Comment on above: Performed By: #### L AB17, [id number], [id number] ####Nut Feeder: DARELL CLEMENS ([phone])[facility] ([facility])[address] Abdomen and Pelvis W cont rast Guido 08-26-2024 Addendum by Deven Mendoza MD on 08/26/2024 6:22 PM EST Patient Name: ROLANDO PETERS : 1945 Exam Date/Time: 08/26/2024 17:03 Procedure: CT CHEST ABDOMEN PELVIS ANGIOGRAM W AND/OR WO CONTRAST Ordering Provider: LANDA YASMIN Reason For Exam: ro dissection --------ADDENDUM #1 -------- Addendum issued to include a fifth impression. This finding was described in the body of the report. 5. Single mildly dilated small bowel loop in the left hemiabdomen but without a discrete transition point to suggest obstruction. Findings could be due to ileus or peristalsis. Consider follow-up imaging if warranted. Report Dictated on Electronically Signed By: Deven Mendoza MD Electronically Signed Date/Time: 08/26/2024 6:22 PM EST --------ORIGINAL REPORT -------- CT ANGIOGRAPHY CHEST, ABDOMEN AND PELVIS: CLINICAL INDICATION: Chest and back pain TECHNIQUE: Transaxial sequence was performed through the chest without IV contrast and then again through the chest, abdomen and pelvis during dynamic intravenous infusion of 75 mL of nonionic contrast media, injected at a high flow rate following a adjunct psychology faculty member study. Multiplanar and 3D MIP reconstruction was performed concurrently with independent viewing software. Dose reduction was employed with automated exposure control. COMPARISON: 07/27/2024, 01/19/2024 FINDINGS: Vessels: Diffuse atherosclerotic calcifications are present throughout the thoracoabdominal aorta and its branches Thoracic aorta: No intramural hematoma on the unenhanced images. No aortic dissection or penetrating atherosclerotic ulcer. Conventional aortic arch anatomy. The thoracic aorta is normal in caliber. Abdominal aorta: The abdominal aorta is normal in caliber. No aortic dissection. Common iliac arteries: Patent left common iliac artery with stenosis. There is marked stenosis of the right common iliac artery. Internal iliac arteries: Patent left internal iliac artery. There is marked stenosis versus occlusion of the proximal right internal iliac artery though this appears similar to the prior CT.. External iliac arteries: Patent left external iliac artery. There is marked stenosis of the right external iliac artery Common femoral arteries: Patent Proximal femoral and proximal deep femoral arteries: Patent Celiac axis: Patent. There are significant atherosclerotic calcifications in the splenic artery with areas of stenosis. 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 Inferior mesenteric artery: Patent. Renal arteries: Patent with stenosis of the origins of both renal arteries, greater on the right Lungs: Moderate emphysematous changes. Subsegmental bibasilar atelectasis. There is smooth interlobular septal thickening bilaterally with some scattered groundglass opacities most notable in the lower lobes. Multiple lung nodules are again present, including a 9 mm right lower lobe nodule (series 6 image 162), a cluster of left upper lobe nodules measuring up to 10 mm (image 172 and on enlarged cluster of nodules in the right lower lobe now measuring 2.3 x 2.0 cm (image 216), now more confluent in appearance. Pleural fluid: Moderate right and trace left pleural effusions, unchanged. Heart/Great vessels: Cardiac chambers are normal in size. Coronary artery calcifications are noted. Mediastinum/Jody: Unremarkable. Soft tissues chest wall: Surgical clips in the right breast. Partly visualized left breast implant. Liver: Normal size and contour. No focal lesion. Biliary tree: Normal caliber. The gallbladder is nondistended. Spleen: Normal. Adrenals: Normal. Pancreas: Normal. Kidneys: Symmetric contrast enhancement without hydronephrosis. No focal lesion. Free fluid: None. Retroperitoneum and mesentery: No enlarged lymph nodes. Bowel: There is a focal loop of small bowel which is mildly dilated in the left hemiabdomen. However, no discrete transition point is identified. The remainder of the bowel is normal in caliber. No bowel wall thickening. The appendix is nondistended. Abdominal wall: Normal. Pelvic organs/viscera: No mass identified. Status post hysterectomy. Pelvic lymphadenopathy: None. Osseous structures: Degenerative change of the visualized spine is noted. IMPRESSION: 1. No evidence of acute aortic dissection, penetrating atherosclerotic ulcer or intramural hematoma. 2. Advanced atherosclerotic disease. Redemonstration of marked stenosis versus occlusion of the proximal right internal iliac artery. Numerous other areas of stenosis are present, as detailed above. 3. Multiple lung nodules bilaterally, posterior which are unchanged but with a worsening clu (more content not included)... [facility] 1. No evidence of ac brenda aortic dissection, penetrating atherosclerotic ulcer or intramural hematoma. 2. Advanced atherosclerotic disease. Redemonstration of marked stenosis versus occlusion of the proximal right internal iliac artery. Numerous other areas of stenosis are present, as detailed above. 3. Multiple lung nodules bilaterally, posterior which are unchanged but with a worsening cluster of nodular densities in the right lower lobe. These are indeterminate but could be due to progressive infectious/inflammatory process. However, recommend either short-term follow-up imaging in three months or tissue sampling or PET/CT as a neoplasm is not excluded. 4. Bilateral pleural effusions, greater on the right, unchanged. Interlobular septal thickening and groundglass opacities related to pulmonary edema. Report Dictated on Electronically Signed By: Deven Mendoza MD Electronically Signed Date/Time: 08/26/2024 5:54 PM [facility] RADIOLOGY [facility] Patient Name: [place] PETERS : 1945 [place] [id number] Exam Date/Time: 08/26/2024 17:03 Procedure: CT CHEST ABDOMEN PELVIS ANGIOGRAM W AND/OR WO CONTRAST Ordering Provider: LANDA YASMIN Reason For Exam: ro dissection CT ANGIOGRAPHY CHEST, ABDOMEN AND PELVIS: CLINICAL INDICATION: Chest and back pain TECHNIQUE: Transaxial sequence was performed through the chest without IV contrast and then again through the chest, abdomen and pelvis during dynamic intravenous infusion of 75 mL of nonionic contrast media, injected at a high flow rate following a adjunct psychology faculty member study. Multiplanar and 3D MIP reconstruction was performed concurrently with independent viewing software. Dose reduction was employed with automated exposure control. COMPARISON: 07/27/2024, 01/19/2024 FINDINGS: Vessels: Diffuse atherosclerotic calcifications are present throughout the thoracoabdominal aorta and its branches Thoracic aorta: No intramural hematoma on the unenhanced images. No aortic dissection or penetrating atherosclerotic ulcer. Conventional aortic arch anatomy. The thoracic aorta is normal in caliber. Abdominal aorta: The abdominal aorta is normal in caliber. No aortic dissection. Common iliac arteries: Patent left common iliac artery with stenosis. There is marked stenosis of the right common iliac artery. Internal iliac arteries: Patent left internal iliac artery. There is marked stenosis versus occlusion of the proximal right internal iliac artery though this appears similar to the prior CT.. External iliac arteries: Patent left external iliac artery. There is marked stenosis of the right external iliac artery Common femoral arteries: Patent Proximal femoral and proximal deep femoral arteries: Patent Celiac axis: Patent. There are significant atherosclerotic calcifications in the splenic artery with areas of stenosis. 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 Inferior mesenteric artery: Patent. Renal arteries: Patent with stenosis of the origins of both renal arteries, greater on the right Lungs: Moderate emphysematous changes. Subsegmental bibasilar atelectasis. There is smooth interlobular septal thickening bilaterally with some scattered groundglass opacities most notable in the lower lobes. Multiple lung nodules are again present, including a 9 mm right lower lobe nodule (series 6 image 162), a cluster of left upper lobe nodules measuring up to 10 mm (image 172 and on enlarged cluster of nodules in the right lower lobe now measuring 2.3 x 2.0 cm (image 216), now more confluent in appearance. Pleural fluid: Moderate right and trace left pleural effusions, unchanged. Heart/Great vessels: Cardiac chambers are normal in size. Coronary artery calcifications are noted. Mediastinum/Jody: Unremarkable. Soft tissues chest wall: Surgical clips in the right breast. Partly visualized left breast implant. Liver: Normal size and contour. No focal lesion. Biliary tree: Normal caliber. The gallbladder is nondistended. Spleen: Normal. Adrenals: Normal. Pancreas: Normal. Kidneys: Symmetric contrast enhancement without hydronephrosis. No focal lesion. Free fluid: None. Retroperitoneum and mesentery: No enlarged lymph nodes. Bowel: There is a focal loop of small bowel which is mildly dilated in the left hemiabdomen. However, no discrete transition point is identified. The remainder of the bowel is normal in caliber. No bowel wall thickening. The appendix is nondistended. Abdominal wall: Normal. Pelvic organs/viscera: No mass identified. Status post hysterectomy. Pelvic lymphadenopathy: None. Osseous structures: Degenerative change of the visualized spine is noted. [facility] RADIOLOGY SYSTEM Deven Mendoza MD - 08/26/2024 Patient Name: ROLANDO PETERS : 1945 [place] [facility] [id number] Exam Date/Time: 08/26/2024 17:03 Procedure: CT CHEST ABDOMEN PELVIS ANGIOGRAM W AND/OR WO CONTRAST Ordering Provider: LANDA YASMIN Reason For Exam: ro dissection CT ANGIOGRAPHY CHEST, ABDOMEN AND PELVIS: CLINICAL INDICATION: Chest and back pain TECHNIQUE: Transaxial sequence was performed through the chest without IV contrast and then again through the chest, abdomen and pelvis during dynamic intravenous infusion of 75 mL of nonionic contrast media, injected at a high flow rate following a adjunct psychology faculty member study. Multiplanar and 3D MIP reconstruction was performed concurrently with independent viewing software. Dose reduction was employed with automated exposure control. COMPARISON: 07/27/2024, 01/19/2024 FINDINGS: Vessels: Diffuse atherosclerotic calcifications are present throughout the thoracoabdominal aorta and its branches Thoracic aorta: No intramural hematoma on the unenhanced images. No aortic dissection or penetrating atherosclerotic ulcer. Conventional aortic arch anatomy. The thoracic aorta is normal in caliber. Abdominal aorta: The abdominal aorta is normal in caliber. No aortic dissection. Common iliac arteries: Patent left common iliac artery with stenosis. There is marked stenosis of the right common iliac artery. Internal iliac arteries: Patent left internal iliac artery. There is marked stenosis versus occlusion of the proximal right internal iliac artery though this appears similar to the prior CT.. External iliac arteries: Patent left external iliac artery. There is marked stenosis of the right external iliac artery Common femoral arteries: Patent Proximal femoral and proximal deep femoral arteries: Patent Celiac axis: Patent. There are significant atherosclerotic calcifications in the splenic artery with areas of stenosis. 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 Inferior mesenteric artery: Patent. Renal arteries: Patent with stenosis of the origins of both renal arteries, greater on the right Lungs: Moderate emphysematous changes. Subsegmental bibasilar atelectasis. There is smooth interlobular septal thickening bilaterally with some scattered groundglass opacities most notable in the lower lobes. Multiple lung nodules are again present, including a 9 mm right lower lobe nodule (series 6 image 162), a cluster of left upper lobe nodules measuring up to 10 mm (image 172 and on enlarged cluster of nodules in the right lower lobe now measuring 2.3 x 2.0 cm (image 216), now more confluent in appearance. Pleural fluid: Moderate right and trace left pleural effusions, unchanged. Heart/Great vessels: Cardiac chambers are normal in size. Coronary artery calcifications are noted. Mediastinum/Jody: Unremarkable. Soft tissues chest wall: Surgical clips in the right breast. Partly visualized left breast implant. Liver: Normal size and contour. No focal lesion. Biliary tree: Normal caliber. The gallbladder is nondistended. Spleen: Normal. Adrenals: Normal. Pancreas: Normal. Kidneys: Symmetric contrast enhancement without hydronephrosis. No focal lesion. Free fluid: None. Retroperitoneum and mesentery: No enlarged lymph nodes. Bowel: There is a focal loop of small bowel which is mildly dilated in the left hemiabdomen. However, no discrete transition point is identified. The remainder of the bowel is normal in caliber. No bowel wall thickening. The appendix is nondistended. Abdominal wall: Normal. Pelvic organs/viscera: No mass identified. Status post hysterectomy. Pelvic lymphadenopathy: None. Osseous structures: Degenerative change of the visualized spine is noted. IMPRESSION: 1. No evidence of acute aortic dissection, penetrating atherosclerotic ulcer or intramural hematoma. 2. Advanced atherosclerotic disease. Redemonstration of marked stenosis versus occlusion of the proximal right internal iliac artery. Numerous other areas of stenosis are present, as detailed above. 3. Multiple lung nodules bilaterally, posterior which are unchanged but with a worsening cluster of nodular densities in the right lower lobe. These are indeterminate but could be due to progressive infectious/inflammatory process. However, recommend either short-term follow-up imaging in three months or tissue sampling or PET/CT as a neoplasm is not excluded. 4. Bilateral pleural effusions, greater on the right, unchanged. Interlobular septal thickening and groundglass opacities related to pulmonary edema. Report Dictated on Electronically Signed By: Deven Mendoza MD Electronically Signed Date/Time: 08/26/2024 5:54 PM EST [facility] Radiology Study observation (narrative) [facility] CT CHEST ABDOMEN PELVIS JEANNETTE OGRAM W AND/OR WO CONTRASTon 08-26-2024 CT CHEST ABDOMEN PELVIS ANGIOGRAM W AND/OR WO CONTRAST Normal [facility] Comprehensive metabolic 1998 panelon 08-26-2024 Albumin [Mass/Vol] 3.6 g/dL 3.4 - 4.8 g/dL [facility] ALP [Catalytic activity/Vol] 57 U/L 40 - 150 U/L [facility] ALT [Catalytic activity/Vol] 35 U/L High [facility] - 30 U/L [facility] Anion gap [Moles/Vol] 9 mmol/L 3 - 13 mmol/L [facility] AST [Catalytic activity/Vol] 36 U/L High [facility] - 34 U/L [facility] Bilirubin [Mass/Vol] 0.6 mg/dL [facility]/dL [facility] Calcium [Mass/Vol] 8.7 mg/dL Low 8.8 - 10. 0 mg/dL [facility] Chloride [Moles/Vol] 106 mmol/L 98 - 10 7 mmol/L [facility] CO2 [Moles/Vol] 20 mmol/L Low 23 - 31 mmol/L [facility] Creatinine [Mass/Vol] 1.02 mg/dL 0.57 - 1.11 mg/dL [facility] GFR/1.73 sq M.predicted (S/P/Bld) [Vol rate/Area] 56.4 mL/min Low - PINF [facility] Comment on above: Calculation based on the Chronic Kidney Disease Epidemiology Collaboration (CKD-EPI) equation refit without adjustment for race Glucose [Mass/Vol] 171 mg/dL High 82 - 115 mg/dL [facility] Interpretation and review of laboratory results Abnormal [facility] Potassium [Moles/Vol] 4.7 mmol/L 3.5 - 5.1 mmol/L [facility] Comment on above: Plasma potassium kamryn ues may be up to 0.5 mmol/L lower than serum values. Protein [Mass/Vol] 6.6 g/dL 6.4 - 8.3 g/dL [facility] Sodium [Moles/Vol] 135 mmol/L Low 136 - 145 mmol/L [facility] Urea nitrogen [Mass/Vol] 27 mg/dL High 9 - 23 mg/dL [facility] ECG 12 Leadon 08-26-2024 [facility] Work Phone: I personally reviewe d and interpreted the EKG shows normal sinus rhythm with ventricular rate of 76 bpm no changes [facility] Work Phone: [facility] Work Phone: ECG 12-LEADon 08-26-2024 ECG 12-LEAD IMPRESSION: Sinus rhythm Electronically Signed On 08-26-2024 16:03:13 EST by Leticia Landa Normal [facility] ED Nursing Noteon 08-26-2024 ED Nursing Note Pt presents to er fr om doctors office for chest pain, back pain and sob. Pt states chest pain is gone now but still has sob on exertion. Normal [facility] ED Provider Noteon ED Provider Note Normal [facility] HIGH SENSITIVITY TROPONIN, S ERIAL BASELINEon 08-26-2024 TROPONIN HIGH SENSITIVITY BASELINE 22 ng/L High <=14 [facility] Comment on above: Performed By: #### L [id number], [id number], [id number] ####Nut Feeder: DARELL CLEMENS ([phone])[facility] ([facility])[address] [place] [address] HIGH SENSITIVITY TROPONIN, S ERIAL, SECOND TESTon 08-26-2024 TROPONIN HS DELTA, BASELINE TO SECOND -3 ng/L Normal <=2 [facility] Comment on above: Result Comment: A tr oponin delta greater than or equal to 15 ng/L is significant for acute cardiac injury.Values less than 15 but greater than 2 are an intermediate change requiring a 3rd serial troponin to be drawn.Values less than or equal to 2 indicate acute cardiac injury is not likely, see external algorithms for further clinical guidance. Performed By: #### L [id number] ####Nut Feeder: DARELL CLEMENS ([phone])[facility] ([facility])[address] TROPONIN HS, SERIAL REFLEX, TEST TWO 19 ng/L High <=14 [facility] Comment on above: Performed By: #### L [id number] ####Nut Feeder: DARELL CLEMENS ([phone])[facility] ([facility])[address] Laboratory - Chemistry and C hemistry - challengeon 08-26-2024 Glucose [Mass/Vol] 187 mg/dL High 70 - 100 mg/dL [facility] Laboratory - Hematology and Cell countson 08-26-2024 Mirtha cells LM Ql (Bld) Slight Abnormal (none) [facility] Lymphocytes (Bld) [#/Vol] 0.2 10*3/uL Low 1.0 - 4.3 10*3/uL [facility] Lymphocytes/100 WBC (Bld) 3 % Low 15 - 45 % [facility] Monocytes (Bld) [#/Vol] 0.1 10*3/uL 0.0 - 0.9 10*3/uL [facility] Monocytes/100 WBC (Bld) 1 % Low 5 - 13 % [facility] Neutrophils (Bld) [#/Vol] 7.6 10*3/uL High 1.8 - 7.5 10*3/uL [facility] Ovalocytes LM Ql (Bld) Moderate Abnormal (none) [facility] Poikilocytosis LM Ql (Bld) Moderate Abnormal (none) [facility] RBC morphology finding Nom (Bld) abnormal [facility] Segmented neutrophils/100 WBC (Bld) 96 % High 38 - 82 % [facility] Laboratory - Microbiology an d Antimicrobial susceptibilityon 08-26-2024 FLUAV RNA CYNDI+probe Ql (Resp) Not detected Not Detected [facility] FLUBV RNA CYNDI+probe Ql (Resp) Not detected Not Detected [facility] RSV RNA CYNDI+probe Ql (Resp) Not detected Not Detected [facility] SARS-CoV-2 (COVID-19) RNA CYNDI+probe Ql (Resp) Not detected Not Detected [facility] SARS-CoV-2 (COVID-19) RNA CYNDI+probe Ql (Unsp spec) Methodology: real-time, RT-PCR The SARS-CoV-2, Flu A/B, and RSV Combo assay is intended for in vitro diagnostic use under the FDA Emergency Use Authorization (EUA). This test has not been FDA cleared or approved. In compliance with this authorization, please visit www.fda.gov/media/80594 5/download or www.fda.gov/media/56610 6/download to access the applicable information sheets. [facility] MANUAL DIFFERENTIAL (CELLAVI ANYA)on 08-26-2024 BAND NEUTROPHILS TOTAL PER COUNTED LEUKOCYTES BY MANUAL COUNT [facility] Comment on above: Performed By: #### L [id number], [id number] ####Nut Feeder: DARELL CLEMENS ([phone])[facility] ([facility])[address] [place] [address] [place] BASOPHILS TOTAL PER COUNTED LEUKOCYTES BY MANUAL COUNT Normal [facility] Comment on above: Performed By: #### L [id number], [id number] ####Nut Feeder: DARELL CLEMENS ([phone])[facility] ([facility])[address] [place] [address] [place] BLASTS TOTAL PER COUNTED LEUKOCYTES BY MANUAL COUNT Normal [facility] Comment on above: Performed By: #### L [id number], [id number] ####Nut Feeder: DARELL CLEMENS ([phone])[facility] ([facility])[address] [place] [address] [place] MIRTHA CELLS PRESENCE IN BLOOD BY LIGHT MICROSCOPY Slight Abnormal (none) [facility] Comment on above: Performed By: #### L [id number], [id number] ####Nut Feeder: DARELL CLEMENS ([phone])[facility] ([facility])[address] [place] [address] [place] EOSINOPHILS TOTAL PER COUNTED LEUKOCYTES BY MANUAL COUNT [facility] Comment on above: Performed By: #### L [id number], [id number] ####Nut Feeder: DARELL BABCOCKSCOTT ([phone])[facility] ([facility])[address] [place] [address] [place] LYMPHOCYTES (10*3/UL) IN BLOOD-CELLAVISION 0.2 10*3/uL Low 1.0-4.3 [facility] Comment on above: Performed By: #### L [id number], [id number] ####Nut Feeder: DARELL CLEMENS ([phone])[facility] [place] ([facility])[address] [place] [address] [place] LYMPHOCYTES TOTAL PER COUNTED LEUKOCYTES BY MANUAL COUNT 3 Normal [facility] Comment on above: Performed By: #### L [id number], [id number] ####Nut Feeder: DARELL CLEMENS ([phone])[facility] [place] ([facility])[address] [place] [address] [place] LYMPHOCYTES/100 LEUKOCYTES IN BLOOD-CELLAVISION 3 % Low 15-45 [facility] Comment on above: Performed By: #### L [id number], [id number] ####Nut Feeder: DARELL CLEMENS ([id number])[facility] [place] ([facility])[address] METAMYELOCYTES TOTAL PER COUNTED LEUKOCYTES BY MANUAL COUNT Normal [facility] Comment on above: Performed By: #### L [id number], [id number] ####Nut Feeder: DARELL CLEMENS ([phone])[facility] [place] ([facility])[address] [place] [address] [place] MONOCYTES (10*3/UL) IN BLOOD-CELLAVISION 0.1 10*3/uL Normal 0.0-0.9 [facility] Comment on above: Performed By: #### L [id number], [id number] ####Nut Feeder: DARELL CLEMENS ([phone])[facility] [place] ([facility])[address] [place] [address] [place] MONOCYTES TOTAL PER COUNTED LEUKOCYTES BY MANUAL COUNT 1 Normal [facility] Comment on above: Performed By: #### L [id number], [id number] ####Nut Feeder: DARELL BABCOCKSCOTT ([phone])[facility] ([facility])[address] [place] [address] [place] MONOCYTES/100 LEUKOCYTES IN BLOOD-CASSANDRA 1 % Low 5-13 [facility] Comment on above: Performed By: #### L [id number], [id number] ####Nut Feeder: DARELL BABCOCKSCOTT ([phone])[facility] ([facility])[address] MYELOCYTES COUNTED BY MANUAL COUNT [facility] Comment on above: Performed By: #### L [id number], [id number] ####Nut Feeder: DARELL YAKOV ([phone])[facility] [place] ([facility])[address] NEUTROPHILS TOTAL PER COUNTED LEUKOCYTES BY MANUAL COUNT 94 Normal [facility] Comment on above: Performed By: #### L [id number], [id number] ####Nut Feeder: DARELL BABCOCKSCOTT ([phone])[facility] [place] ([facility])[address] [place] [address] [place] OVALOCYTES PRESENCE IN BLOOD BY LIGHT MICROSCOPY Moderate Abnormal (none) [facility] Comment on above: Performed By: #### L [id number], [id number] ####Nut Feeder: DARELL BABCOCKSCOTT ([phone])[facility] [place] ([facility])[address] [place] [address] [place] POIKILOCYTOSIS (PRESENCE) IN BLOOD BY LIGHT MICROSCOPY Moderate Abnormal (none) [facility] Comment on above: Performed By: #### L [id number], [id number] ####Nut Feeder: DARELL CLEMENS ([phone])[facility] [place] ([facility])[address] [place] [address] [place] PROMYELOCYTES TOTAL PER COUNTED LEUKOCYTES BY MANUAL COUNT Normal [facility] Comment on above: Performed By: #### L [id number], [id number] ####Nut Feeder: DARELL CLEMENS ([phone])[facility] ([facility])[address] RBC MORPHOLOGY IN BLOOD abnormal Normal [facility] Comment on above: Performed By: #### L [id number], [id number] ####Nut Feeder: DARELL BABCOCKELSHAYLA ([phone])[facility] ([facility])[address] [place] [address] [place] SEGMENTED NEUTROPHILS (10*3/UL) IN BLOOD-CELLAVISION 7.6 10*3/uL High 1.8-7.5 [facility] Comment on above: Performed By: #### L [id number], [id number] ####Nut Feeder: DARELL CLEMENS ([phone])[facility] ([facility])[address] SEGMENTED NEUTROPHILS/100 LEUKOCYTES-CE 96 % High 38-82 [facility] Comment on above: Performed By: #### L [id number], [id number] ####Nut Feeder: DARELL CLEMENS ([phone])[facility] [place] ([facility])[address] UNCLASSIFIED CELLS TOTAL PER COUNTED LEUKOCYTES BY MANUAL COUNT [facility] Comment on above: Performed By: #### L [id number], [id number] ####Nut Feeder: DARELL CLEMENS ([phone])[facility] ([facility])[address] VARIANT LYMPHOCYTES TOTAL PER COUNTED LEUKOCYTES BY MANUAL COUNT [facility] Comment on above: Performed By: #### L [id number], [id number] ####Nut Feeder: DARELL CLEMENS ([phone])[facility] ([facility])[address] NT PRO BNPon 08-26-2024 Natriuretic peptide B (Bld) [Mass/Vol] 6947 pg/mL High <450 [facility] Comment on above: Performed By: #### L [id number], [id number], [id number] ####Nut Feeder: DARELL CLEMENS ([phone])[facility] ([facility])[address] Natriuretic peptide B [Mass/ Vol]on 08-26-2024 Interpretation and review of laboratory results Abnormal [facility] Natriuretic peptide B (Bld) [Mass/Vol] 6947 pg/mL High NINF - 450 pg/mL [facility] No Panel Informationon 08-26 Interpretation and review of laboratory results Abnormal [facility] Performed by: [facility], [address] [address] CLIA ID: [id number] [facility] Interpretation and review of laboratory results Abnormal [facility] Troponin HS Delta, Baseline to Second -3 ng/L NINF - 2 ng/L [facility] Comment on above: A troponin delta gre ater than or equal to 15 ng/L is significant for acute cardiac injury. Values less than 15 but greater than 2 are an intermediate change requiring a 3rd serial troponin to be drawn. Values less than or equal to 2 indicate acute cardiac injury is not likely, see external algorithms for further clinical guidance. Troponin HS, Serial Second 19 ng/L High NINF - 14 ng/L [facility] Health Atypical Lymphocytes Manual [facility] Health Bands Manual [facility] Basophils Manual [facility] alth Blasts Manual [facility] Eosinophils Manual [facility] Interpretation and review of laboratory results Abnormal [facility] Lymphocytes Manual 3 [facility] Metamyelocytes Manual [facility] Monocytes Manual 1 [facility] alth Myelocytes Manual [facility] ealth Neutrophils Manual 94 [facility] Promyelocytes Manual [facility] Unclassified Cells, Manual [facility] Interpretation and review of laboratory results Abnormal [facility] Troponin HS, Serial Baseline 22 ng/L High NINF - 14 ng/L [facility] Health P [place] 91 degrees [facility] DE Interval 162 ms [facility] QRS [place] 76 degrees [facility] QRSD Interval 84 ms [facility] Healt h QT Interval 399 ms [facility] QTC Interval 440 ms [facility] T Wave [place] 70 degrees [facility] Sinus rhythm Electronically Signed On 08-26-2024 16:03:13 EST by Leticia Roque M D - 08/26/2024 IMPRESSION: Sinus rhythm Electronically Signed On 08-26-2024 16:03:13 EST by Leticia Landa [facility] SARS-COV-2, FLU A/B, AND RSV COMBOon 08-26-2024 SARS-CoV-2 (COVID-19) RNA CYNDI+probe Ql (Unsp spec) Normal [facility] Comment on above: Performed By: #### L [id number] ####Nut Feeder: DARELL CLEMENS ([phone])[facility] ([facility])[address] [place] [address] SARS-CoV-2, Flu A/B, and RSV Comboon 08-26-2024 Interpretation and review of laboratory results Normal [facility] Vital signson 08-26-2024 Heart rate 73 /min bpm [facility] XR Chest Single viewon 08-26 FINDINGS AND IMPRESSION: SUPPORT DEVICES: EKG leads OSSEOUS STRUCTURES: Unremarkable. HEART AND MEDIASTINUM: The cardiomediastinal silhouette appears unchanged from the prior exam. LUNGS AND PLEURA: Pulmonary venous congestion with interstitial edema. Unchanged nodular density in the left midlung. Small right pleural effusion and left basilar atelectasis. Report Dictated on Electronically Signed By: Deven Mendoza MD Electronically Signed Date/Time: 08/26/2024 4:36 PM EST [facility] Patient Name: ROLANDO PETERS : 1945 Exam Date/Time: 08/26/2024 16:07 Procedure: XR CHEST 1 VIEW Ordering Provider: LANDA YASMIN Reason For Exam: cp/sob CHEST CLINICAL INDICATION: Chest pain and dyspnea TECHNIQUE: AP portable chest COMPARISON: 01/19/2024 [facility] Deven Mendoza MD - 08/26/2024 Patient Name: ROLANDO PETERS : 1945 Exam Date/Time: 08/26/2024 16:07 Procedure: XR CHEST 1 VIEW Ordering Provider: LANDA YASMIN Reason For Exam: cp/sob CHEST CLINICAL INDICATION: Chest pain and dyspnea TECHNIQUE: AP portable chest COMPARISON: 01/19/2024 IMPRESSION: FINDINGS AND IMPRESSION: SUPPORT DEVICES: EKG leads OSSEOUS STRUCTURES: Unremarkable. HEART AND MEDIASTINUM: The cardiomediastinal silhouette appears unchanged from the prior exam. LUNGS AND PLEURA: Pulmonary venous congestion with interstitial edema. Unchanged nodular density in the left midlung. Small right pleural effusion and left basilar atelectasis. Report Dictated on Electronically Signed By: Deven Mendoza MD Electronically Signed Date/Time: 08/26/2024 4:36 PM EST [facility] Radiology Study observation (narrative) [facility] XR Chest Single viewOrdered By: Deven Mendzoa on 08-26-2024 [facility] Work Phone: 37on 08-19-2024 37 Normal [facility] Progress Noteon 08-19-2024 Progress Note Normal [facility] 36on 08-03-2024 36 Ms. Peters advised s he did have appointment with Cardiology on 08/01/24 however, they did not change her Lasix. She states she is only to take it PRN for a few days when she has ankle swelling. It has been weeks since she last took any Lasix. Normal [facility] 36on 08-02-2024 36 Normal [facility] 36 Normal [facility] Cobalaminson 08-02-2024 Cobalamin (Vitamin B12) [Mass/Vol] 207 pg/mL Low 211-911 [facility] Comment on above: Performed By: #### 2 [id number] #### RACHELLE Ramirez ([id number]) [facility] ([facility]) [address] [place] [address] Comprehensive metabolic 2000 panelon 08-02-2024 Albumin BCP dye [Mass/Vol] 4.0 g/dL Normal 3.4-5.0 [facility] Comment on above: Performed By: #### 2 [id number] #### RACHELLE Ramirez ([id number]) [facility] ([facility]) [address] [place] [address] ALP [Catalytic activity/Vol] 46 U/L Normal 33-136 [facility] Comment on above: Performed By: #### 2 7298-9 #### RACHELLE Ramirez ([id number]) [facility] ([facility]) [address] [place] [address] ALT With P-5'-P [Catalytic activity/Vol] 24 U/L Normal 7-45 [facility] Comment on above: Result Comment: Arabella ents treated with Sulfasalazine may generate falsely decreased results for ALT. Performed By: #### 2 7298-9 #### RACHELLE Ramirez ([id number]) [facility] ([facility]) [address] [place] [address] Anion gap [Moles/Vol] 14 mmol/L Normal 10-20 [facility] Comment on above: Performed By: #### 2 7298-9 #### RACHELLE Ramirez ([id number]) [facility] ([facility]) [address] [place] [address] AST With P-5'-P [Catalytic activity/Vol] 26 U/L Normal 9-39 [facility] Comment on above: Performed By: #### 2 7298-9 #### RACHELLE Ramirez ([id number]) [facility] ([facility]) [address] [place] [address] Bilirubin [Mass/Vol] 0.5 mg/dL Normal 0.0-1.2 [facility] Comment on above: Performed By: #### 2 7298-9 #### RACHELLE Ramirez ([id number]) [facility] ([facility]) [id number] [place] [address] Calcium [Mass/Vol] 8.9 mg/dL Normal 8.6-10.6 [facility] Comment on above: Performed By: #### 2 7298-9 #### RACHELLE Ramirez ([id number]) [facility] ([facility]) [address] [place] [address] Chloride [Moles/Vol] 106 mmol/L Normal 98-107 [facility] Comment on above: Performed By: #### 2 7298-9 #### RACHELLE OBRIEN L ([id number]) [facility] ([facility]) [address] [place] [address] CO2 [Moles/Vol] 22 mmol/L Normal 21-32 [facility] Comment on above: Performed By: #### 2 7298-9 #### RACHELLE Ramirez ([id number]) [facility] ([facility]) [address] [place] [address] Creatinine [Mass/Vol] 1.01 mg/dL Normal 0.50-1.05 [facility] Comment on above: Performed By: #### 2 7298-9 #### RACHELLE Ramirez ([id number]) [facility] ([facility]) [address] [place] [address] Glomerular filtration rate/1.73 sq M.predicted 57 mL/min/1.73m*2 Low >60 [facility] Comment on above: Result Comment: Calc ulations of estimated GFR are performed using the 2020 CKD-EPI Study Refit equation without the race variable for the IDMS-Traceable creatinine methods. https://jasn.asnjournals.org/content//ASN.2020 776856 Performed By: #### 2 7298-9 #### RACHELLE Ramirez ([id number]) [facility] ([facility]) [address] [place] [address] Glucose [Mass/Vol] 103 mg/dL High 74-99 [facility] Comment on above: Performed By: #### 2 7298-9 #### RACHELLE OBRIEN L ([id number]) [facility] ([facility]) [address] [place] [address] Potassium [Moles/Vol] 4.9 mmol/L Normal 3.5-5.3 [facility] Comment on above: Performed By: #### 2 7298-9 #### RACHELLE Ramirez ([id number]) [facility] ([facility]) [address] [place] [address] Protein [Mass/Vol] 6.5 g/dL Normal 6.4-8.2 [facility] Comment on above: Performed By: #### 2 7298-9 #### RACHELLE Ramirez ([id number]) [facility] ([facility]) [address] [place] [address] Sodium [Moles/Vol] 137 mmol/L Normal 136-145 [facility] Comment on above: Performed By: #### 2 7298-9 #### RACHELLE Ramirez ([id number]) [facility] ([facility]) [address] [place] [address] Urea nitrogen [Mass/Vol] 15 mg/dL Normal 6-23 [facility] Comment on above: Performed By: #### 2 7298-9 #### RACHELLE Ramirez ([id number]) [facility] ([facility]) [address] [place] [address] Ferritinon 08-02-2024 Ferritin [Mass/Vol] 71 ng/mL Normal 8-150 [facility] Comment on above: Performed By: #### 2 7298-9 #### RACHELLE Ramirez ([id number]) [facility] ([facility]) [address] [place] [address] Folateon 08-02-2024 Folate [Mass/Vol] 23.5 ng/mL Normal >5.0 [facility] Comment on above: Order Comment: Low < 3.4Borderline 3.4-5.0Normal >5.0Patients receiving more than 5 mg/day of biotin may have interference in test results. A sample should be taken no sooner than eight hours after previous dose. Contact the testing laboratory for additional information. Performed By: #### 2 7298-9 #### RACHELLE Ramirez ([id number]) [facility] ([facility]) [address] [place] [address] Iron and Iron binding capaci ty panelon 08-02-2024 Iron [Mass/Vol] 45 ug/dL Normal 35-150 [facility] Comment on above: Performed By: #### 2 7298-9 #### RACHELLE Ramirez ([id number]) [facility] ([facility]) [id number] [place] [address] Iron binding capacity [Mass/Vol] 399 ug/dL Normal 240-445 [facility] Comment on above: Performed By: #### 2 7298-9 #### RACHELLE Ramirez ([id number]) [facility] ([facility]) [address] [place] [address]851 Iron binding capacity.unsaturated [Mass/Vol] 354 ug/dL Normal 110-370 [facility] Comment on above: Performed By: #### 2 7298-9 #### RACHELLE Ramirez ([id number]) [facility] ([facility]) [address] [place] [address] 39263 Iron saturation [Mass fraction] 11 % Low 25-45 [facility] Comment on above: Performed By: #### 2 7298-9 #### RACHELLE Ramirez ([id number]) [facility] ([facility]) [address] [place] [address] Magnesiumon 08-02-2024 Magnesium [Mass/Vol] 1.99 mg/dL Normal 1.60-2.40 [facility] Comment on above: Performed By: #### 2 7298-9 #### RACHELLE Ramirez ([id number]) [facility] ([facility]) [address] [place] [address] 78274 Methylmalonateon 08-02-2024 Methylmalonate [Moles/Vol] 0.25 umol/L Normal 0.00-0.40 [facility] Comment on above: Result Comment: INTE RPRETIVE INFORMATION: MMA Serum/Plasma, Vitamin B12 Status This test was developed and its performance characteristics determined by [facility]. It has not been cleared or approved by the US Food and Drug Administration. This test was performed in a CLIA certified laboratory and is intended for clinical purposes. Performed By: [facility] [address] [place] [address] Needle Punch Operator: Rosalee Upton MD, PhD CLIA Number: [id number] Performed By: #### 2 7298-9 #### RACHELLE Ramirez ([id number]) [facility] ([facility]) [address] [place] [address] 86665 Phosphateon 08-02-2024 Phosphate [Mass/Vol] 4.8 mg/dL Normal 2.5-4.9 [facility] Comment on above: Result Comment: The performance characteristics of phosphorus testing in heparinized plasma have been validated by the individual laboratory site where testing is performed. Testing on heparinized plasma is not approved by the FDA; however, such approval is not necessary. Performed By: #### 2 7298-9 #### RACHELLE Ramirez ([id number]) [facility] ([facility]) [address] [place] [address] 090[address] TSH WITH REFLEX TO FREE T4 I F ABNORMALon 08-02-2024 TSH Qn 1.42 m[IU]/L Normal 0.44-3.98 [facility] Comment on above: Order Comment: TSH t esting is performed using different testing methodology at [facility] than at [facility]. Direct result comparisons should only be made within the same method. Performed By: #### 2 7298-9 #### RACHELLE Ramirez ([id number]) [facility] ([facility]) [address] [place] [address] 36on 08-01-2024 36 Therapy completed Normal [facility] CT CHEST WO IV CONTRASTon CT CHEST WO IV CONTRAST Normal [facility] ECG 12 lead - CLINIC PERFORM EDon 08-01-2024 Sinus Rhythm WITHIN NORMAL LIMITS [facility] Progress Noteon 08-01-2024 Progress Note Normal [facility] 36on 07-25-2024 36 Submitted DME Order CPAP in via [facility] Normal [facility] 36 Normal [facility] US Heart TransthoracicOrdere d By: Fabiola Potter on 07-25-2024 Aortic Root 2.9 cm [facility] Work Phone: [phone] Aortic Sinus Valsalva 2.9 cm [facility] Work Phone: [phone] Ascending Aorta 2.9 cm [facility] Work Phone: [phone] AV Mean Gradient 7 mmHg [facility] Work Phone: [phone] AV Mean Velocity 1.2 m/s [facility] Work Phone: [phone] AV Peak Gradient 12 mmHg [facility] Work Phone: [phone] AV Peak Velocity 1.8 m/s [facility] Work Phone: [phone] AV Velocity Ratio 0.39 [facility] Work Phone: [phone] AV VTI 44.8 cm [facility] Work Phone: [phone] E/E' Lateral 22.5 [facility] Work Phone: [phone] E/E' Ratio (Averaged) 28.[address] [facility] [address] [facility] Work Phone: [phone] E/E' Septal 33.75 [facility] Work Phone: [phone] EF BP 55 % 55 - 100 % [facility] Work Phone: [phone] Est. RA Pressure 3 mmHg [facility] Work Phone: [phone] Fractional Shortening 2D 31 % 28 - 44 % [facility] Work Phone: [phone] Interpretation and review of laboratory results Abnormal [facility] Work Phone: [phone] IVC Diameter 1.5 cm [facility] Work Phone: [phone] IVSd 1 cm Abnormal 0.6 - 0.9 cm [facility] Work Phone: [phone] LA Diameter 4.1 cm [facility] Work Phone: [phone] LA Volume 4C 65 mL Abnormal 22 - 52 mL [facility] Work Phone: [phone] LA/AO Root Ratio 1.41 [facility] Work Phone: [phone] LV E' Lateral Velocity 6 cm/s [facility] Work Phone: [phone] LV E' Septal Velocity 4 cm/s [facility] Work Phone: [phone] LV EDV A2C 88 mL [facility] [employer] Work Phone: [phone] LV EDV A4C 83 mL [facility] [employer] Work Phone: [phone] LV EDV BP 85 mL 56 - 104 mL [facility] [employer] Work Phone: [phone] LV Ejection Fraction A2C 57 % [facility] [employer] Work Phone: [phone] LV Ejection Fraction A4C 54 % [facility] [employer] Work Phone: [phone] LV ESV A2C 38 mL [facility] [employer] Work Phone: [phone] LV ESV A4C 38 mL [facility] [employer] Work Phone: [phone] LV ESV BP 38 mL 19 - 49 mL [facility] [employer] Work Phone: [phone] LV Mass 2D 127.8 g 67 - 162 g [facility] [employer] Work Phone: [phone] LV RWT Ratio 0.43 [facility] [employer] Work Phone: [phone] LVIDd 4.2 cm 3.9 - 5.3 cm [facility] [employer] Work Phone: [phone] LVIDs 2.9 cm [facility] [employer] Work Phone: [phone] LVOT Area 2.8 cm2 [facility] [employer] Work Phone: [phone] LVOT Cardiac Output 4 liter/minute [facility] [employer] Work Phone: [phone] LVOT Diameter 1.9 cm [facility] [employer] Work Phone: [phone] LVOT Mean Gradient 1 mmHg [facility] [employer] Work Phone: [phone] LVOT Peak Gradient 2 mmHg [facility] [employer] Work Phone: [phone] LVOT Peak Velocity 0.7 m/s [facility] [employer] Work Phone: [phone] LVOT SV 55.8 ml [facility] [employer] Work Phone: [phone] LVOT VTI 19.7 cm [facility] [employer] Work Phone: [phone] LVOT:AV VTI Index 0.44 [facility] [employer] Work Phone: [phone] LVPWd 0.9 cm 0.6 - 0.9 cm [facility] [employer] Work Phone: [phone] MR VTI 228.1 cm [facility] Work Phone: [phone] MV A Velocity 0.85 m/s [facility] Work Phone: [phone] MV Area by VTI 1.4 cm2 [facility] Work Phone: [phone] MV E Velocity 1.35 m/s [facility] Work Phone: [phone] MV E Wave Deceleration Time 182.8 ms [facility] Work Phone: [phone] MV E/A 1.59 [facility] Work Phone: [phone] MV Max Velocity 1.9 m/s [facility] Work Phone: [phone] MV Mean Gradient 5 mmHg [facility] Work Phone: [phone] MV Mean Velocity 1 m/s [facility] Work Phone: [phone] MV Nyquist Velocity 36 cm/s [facility] Work Phone: [phone] MV Peak Gradient 14 mmHg [facility] Work Phone: [phone] MV Regurg Velocity PISA 6.8 m/s [facility] Work Phone: [phone] MV VTI 38.6 cm [facility] Work Phone: [phone] MV:LVOT VTI Index 1.96 [facility] Work Phone: [phone] RA Area 4C 27.2 mL [facility] Work Phone: [phone] RV Basal Dimension 2.7 cm [facility] Work Phone: [phone] RV Longitudinal Dimension 6.8 cm [facility] Work Phone: [phone] RV Mid Dimension 1.8 cm [facility] Work Phone: [phone] RVSP 72 mmHg [facility] Work Phone: [phone] Sinotubular Junction 2.2 cm [facility] Work Phone: [phone] TR Max Velocity 4.14 m/s [facility] Work Phone: [phone] TR Peak Gradient 69 mmHg [facility] Work Phone: [facility] Work Phone: Heart Transthoracicon Left Ventricle: Left ventricle size is normal. Normal wall thickness. Normal left ventricular systolic function. EF by 2D Simpsons Biplane is 55%. Normal wall motion. Grade II diastolic dysfunction with increased LAP. Right Ventricle: Right ventricle size is normal. Normal systolic function. Aortic Valve: Mild (1+) regurgitation. Mild stenosis of the aortic valve. AV mean gradient is 7 mmHg. Mitral Valve: Moderately thickened leaflets. Mildly calcified leaflets. Mild annular calcification. Moderate (2+) regurgitation with a posterior directed jet. Mild stenosis noted. Tricuspid Valve: Mild to moderate (1-2+) regurgitation. RVSP is 72 mmHg. Left Ventricle Left ventricle size is normal. Normal wall thickness. Normal left ventricular systolic function. EF by 2D Simpsons Biplane is 55%. Normal wall motion. Grade II diastolic dysfunction with increased LAP. Right Ventricle Right ventricle size is normal. Normal systolic function. Left Atrium Left atrium is dilated. Right Atrium Right atrium size is normal. IVC/SVC IVC diameter is normal and decreases greater than 50% during inspiration; therefore the estimated right atrial pressure is normal (~3 mmHg). Mitral Valve Moderately thickened leaflets. Mildly calcified leaflets. Mild annular calcification. Moderate (2+) regurgitation with a posterior directed jet. Mild stenosis noted. Tricuspid Valve Valve structure is normal. Mild to moderate (1-2+) regurgitation. RVSP is 72 mmHg. Aortic Valve Not well visualized. Mildly thickened cusps. Mildly calcified cusps. Cusp sclerosis. Mild (1+) regurgitation. Mild stenosis of the aortic valve. AV mean gradient is 7 mmHg. Pulmonic Valve The pulmonic valve was not well visualized. Trace regurgitation. Ascending Aorta Normal sized sinuses of Valsalva and ascending aorta. Pericardium No pericardial effusion. Septum No interatrial shunt visualized on color Doppler. Study Details Image quality: fair. Heart rate: 73 bpm. Blood pressure: 174/60 mmHg. Technical qualifiers: Technically difficult study. No contrast was given. CV CPACS Progress Noteon 07-20-2024 Progress Note Normal [facility] RF videography Hypopharynx a nd Esophagus Views for swallowing function W speech and W barium contrast Mark 07-20-2024 FINDINGS/IMPRESSION: Oral phase demonstrated increased oral residual and spillage to the vallecula. Pharyngeal phase demonstrated increased vallecular and piriform residuals as well as residuals intermittently within small pharyngoceles. No penetration into the upper airway or aspiration. Please see the speech pathologist report for complete findings and details, as well as recommendations. Report Dictated on Electronically Signed By: Rob Cali MD Electronically Signed Date/Time: 07/20/2024 4:18 PM [facility] Patient Name: ROLANDO PETERS DOB: 1945 Exam Date/Time: 07/20/2024 11:47 Procedure: FL MODIFIED BARIUM WITH VIDEO AND SPEECH Ordering Provider: ARANA CHELSEA Reason For Exam: Aspiration SWALLOWING STUDY: INDICATION: Swallowing dysfunction. Globus sensation. TECHNIQUE: Swallowing study was performed with fluoroscopic observation in association with the speech pathologist. The patient was observed to swallow thin and thick liquids along with solid material containing barium. Videotape monitoring of the fluoroscopic procedure was performed along with digital radiographs. Ka,r = 33.24 mGy. Fluoroscopy time was 1.47 minutes. COMPARISON: Correlation is made to CT soft tissue neck 01/21/2024 [facility] Ori Cali MD - 07/20/2024 Patient Name: ROLANDO PETERS DOB: 1945 Exam Date/Time: 07/20/2024 11:47 Procedure: FL MODIFIED BARIUM WITH VIDEO AND SPEECH Ordering Provider: ARANA CHELSEA Reason For Exam: Aspiration SWALLOWING STUDY: INDICATION: Swallowing dysfunction. Globus sensation. TECHNIQUE: Swallowing study was performed with fluoroscopic observation in association with the speech pathologist. The patient was observed to swallow thin and thick liquids along with solid material containing barium. Videotape monitoring of the fluoroscopic procedure was performed along with digital radiographs. Ka,r = 33.24 mGy. Fluoroscopy time was 1.47 minutes. COMPARISON: Correlation is made to CT soft tissue neck 01/21/2024 IMPRESSION: FINDINGS/IMPRESSION: Oral phase demonstrated increased oral residual and spillage to the vallecula. Pharyngeal phase demonstrated increased vallecular and piriform residuals as well as residuals intermittently within small pharyngoceles. No penetration into the upper airway or aspiration. Please see the speech pathologist report for complete findings and details, as well as recommendations. Report Dictated on Electronically Signed By: Rob Cali MD Electronically Signed Date/Time: 07/20/2024 4:18 PM EST [facility] Radiology Study observation (narrative) [facility] alth RF videography Hypopharynx a nd Esophagus Views for swallowing function W speech and W barium contrast POOrdered By: Ori Cali on 07-20-2024 [facility] Work Phone: [phone] 07-07-2024 37 Normal [facility] Progress Noteon 07-07-2024 Progress Note Normal [facility] 36on 07-05-2024 36 Noted. Thanks. Normal [facility] 36on 07-04-2024 36 Pt has completed her Sleep study. Has yet to do her CT which is scheduled on 07/27. Ok for her to be seen ? Normal [facility] 36on 06-23-2024 36 Normal [facility] Polysomnographyon 06-21-2024 [facility] Progress Noteon 06-18-2024 Progress Note Her sleep study show s mild INGA and they are recommending Auto-PAP. If she is agreeable, I can send order for machine. She can also discuss with pulmonology. Her INGA should be treated due to her Afib. Normal [facility] 36on 06-15-2024 36 labs uploaded. Normal [facility] ANTI-NEUTROPHILIC CYTOPLASMI C ANTIBODYon 06-13-2024 Neutrophil cytoplasmic Ab pattern IF (S) [Interp] Not detected Normal None Detected [facility] Comment on above: Result Comment: INTE RPRETIVE INFORMATION: ANCA IFA Pattern Neutrophil Cytoplasmic Antibodies (C-ANCA = granular cytoplasmic staining, P-ANCA = perinuclear staining) are found in the serum of over 90 percent of patients with certain necrotizing systemic vasculitides, and usually in less than 5 percent of patients with collagen vascular disease or arthritis. Performed By: [facility] [address] [place] [address] Needle Punch Operator: Rosalee Upton MD, PhD CLIA Number: [id number] Performed By: #### 2 4362-6 #### RACHELLE Ramirez ([id number]) [facility] ([facility]) [address] [place] [address] 27129 Neutrophil cytoplasmic IgG IF (S) [Titer] <1:20 Normal <1:20 [facility] Comment on above: Performed By: #### 2 4362-6 #### RACHELLE Ramirez ([id number]) [facility] ([facility]) [address] [place] [address] 13914 Albumin/Creatinineon 024 Albumin/Creatinine DL <= 20 mg/L (U) [Mass ratio] 2358.5 ug/mg Creat High <30.0 [facility] Comment on above: Performed By: #### 2 4362-6 #### RACHELLE Ramirez ([id number]) [facility] ([facility]) [address] [place] [address] 86777 Albumin/Creatinine DL <= 20 mg/L (U) [Mass ratio]on 06-13-2024 Albumin DL <= 20 mg/L (U) [Mass/Vol] 1587.3 mg/L Normal Not established [facility] Comment on above: Performed By: #### 2 4362-6 #### RACHELLE Ramirez ([id number]) [facility] ([facility]) [address] [place] [address] 37970 Creatinine (U) [Mass/Vol] 67.3 mg/dL Normal 20.0-320.0 [facility] Comment on above: Performed By: #### 2 4362-6 #### RACHELLE Ramirez ([id number]) [facility] ([facility]) [address] [place] [address] 36355 CBC W Auto Differential pane l (Bld)on 06-13-2024 Basophils (Bld) [#/Vol] 0.07 x10*3/uL Normal 0.00-0.10 [facility] Comment on above: Performed By: #### 5 7021-8 #### RACHELLE Ramirez ([id number]) [facility] ([facility]) [id number] [place] [address] 95594 Basophils/100 WBC (Bld) 1.3 % Normal 0.0-2.0 [facility] Comment on above: Performed By: #### 5 7021-8 #### RACHELLE OBRIEN L ([id number]) [facility] ([facility]) [id number] [place] [address] 21010 Eosinophils (Bld) [#/Vol] 0.13 x10*3/uL Normal 0.00-0.40 [facility] Comment on above: Performed By: #### 5 7021-8 #### RACHELLE Ramirez ([id number]) [facility] ([facility]) [address] [place] [address] 18291 Eosinophils/100 WBC (Bld) 2.4 % Normal 0.0-6.0 [facility] Comment on above: Performed By: #### 5 7021-8 #### RACHELLE Ramirez ([id number]) [facility] ([facility]) [address] [place] [address] 33970 Erythrocyte distribution width (RBC) [Ratio] 13.0 % Normal 11.5-14.5 [facility] Comment on above: Performed By: #### 5 7021-8 #### RACHELLE Ramirez ([id number]) [facility] ([facility]) [address] [place] [address] 45416 Hematocrit (Bld) [Volume fraction] 30.8 % Low 36.0-46.0 [facility] Comment on above: Performed By: #### 5 7021-8 #### RACHELLE Ramirez ([id number]) [facility] ([facility]) [address] [place] [address] 81607 Hemoglobin (Bld) [Mass/Vol] 9.7 g/dL Low 12.0-16.0 [facility] Comment on above: Performed By: #### 5 7021-8 #### RACHELLE Ramirez ([id number]) [facility] ([facility]) [address] [place] [address] Immature granulocytes (Bld) [#/Vol] 0.02 x10*3/uL Normal 0.00-0.50 [facility] Comment on above: Performed By: #### 5 7021-8 #### RACHELLE Ramirez ([id number]) [facility] ([facility]) [address] [place] [address] 94025 Immature granulocytes/100 WBC (Bld) 0.4 % Normal 0.0-0.9 [facility] Comment on above: Result Comment: Yue ture Granulocyte Count (IG) includes promyelocytes, myelocytes and metamyelocytes but does not include bands. Percent differential counts (%) should be interpreted in the context of the absolute cell counts (cells/UL). Performed By: #### 5 7021-8 #### RACHELLE Ramirez ([id number]) [facility] ([facility]) [address] [place] [address] 39134 Lymphocytes (Bld) [#/Vol] 0.75 x10*3/uL Low 0.80-3.00 [facility] Comment on above: Performed By: #### 5 7021-8 #### RACHELLE Ramirez ([id number]) [facility] ([facility]) [address] [place] [address] 73459 Lymphocytes/100 WBC (Bld) 14.1 % Normal 13.0-44.0 [facility] Comment on above: Performed By: #### 5 7021-8 #### RACHELLE Ramirez ([id number]) [facility] ([facility]) [address] [place] [address] 61139 MCH (RBC) [Entitic mass] 29.0 pg Normal 26.0-34.0 [facility] Comment on above: Performed By: #### 5 7021-8 #### RACHELLE Ramirez ([id number]) [facility] ([facility]) [address] [place] [address] 38988 MCHC (RBC) [Mass/Vol] 31.5 g/dL Low 32.0-36.0 [facility] Comment on above: Performed By: #### 5 7021-8 #### RACHELLE SHELBYER James ([id number]) [facility] ([facility]) [address] [place], [place] [address]185 MCV (RBC) [Entitic vol] 92 fL Normal 80-100 [facility] Comment on above: Performed By: #### 5 7021-8 #### RACHELLE OBRIEN L ([id number]) [facility] ([facility]) [address] [place] [address] 26658 Monocytes (Bld) [#/Vol] 0.41 x10*3/uL Normal 0.05-0.80 [facility] Comment on above: Performed By: #### 5 7021-8 #### RACHELLE Ramirez ([id number]) [facility] ([facility]) [address] [place] [address] 08160 Monocytes/100 WBC (Bld) 7.7 % Normal 2.0-10.0 [facility] Comment on above: Performed By: #### 5 7021-8 #### RACHELLE TRUONGMOGISELLE Ramirez ([id number]) [facility] ([facility]) [address] [place] [address] 17015 Neutrophils (Bld) [#/Vol] 3.93 x10*3/uL Normal 1.60-5.50 [facility] Comment on above: Result Comment: Perc ent differential counts (%) should be interpreted in the context of the absolute cell counts (cells/uL). Performed By: #### 5 7021-8 #### RACHELLE TRUONGMOTZNICKOLAS L ([id number]) [facility] ([facility]) [address] [place] [address] Neutrophils/100 WBC (Bld) 74.1 % Normal 40.0-80.0 [facility] Comment on above: Performed By: #### 5 7021-8 #### RACHELLE TRUONGMOTZER L ([id number]) [facility] ([facility]) [address] [place] [address] 07991 Nucleated RBC/100 WBC (Bld) [Ratio] 0.0 /100 WBCs Normal 0.0-0.0 [facility] Comment on above: Performed By: #### 5 7021-8 #### RACHELLE Ramirez ([id number]) [facility] ([facility]) [address] [place] [address] 04029 Platelets (Bld) [#/Vol] 204 x10*3/uL Normal 150-450 [facility] Comment on above: Performed By: #### 5 7021-8 #### RACHELLE Ramirez ([id number]) [facility] ([facility]) [address] [place] [address] 84156 RBC (Bld) [#/Vol] 3.35 x10*6/uL Low 4.00-5.20 [facility] Comment on above: Performed By: #### 5 7021-8 #### RACHELLE Ramirez ([id number]) [facility] ([facility]) [address] [place] [address] 98048 WBC (Bld) [#/Vol] 5.3 x10*3/uL Normal 4.4-11.3 [facility] Comment on above: Performed By: #### 5 7021-8 #### RACHELLE Ramirez ([id number]) [facility] ([facility]) [address] [place] [address] 56272 Comprehensive metabolic 2000 panelon 06-13-2024 Albumin BCP dye [Mass/Vol] 4.0 g/dL Normal 3.4-5.0 [facility] Comment on above: Performed By: #### 2 4362-6 #### RACHELLE Ramirez ([id number]) [facility] ([facility]) [address] [place] [address] 02864 ALP [Catalytic activity/Vol] 49 U/L Normal 33-136 [facility] Comment on above: Performed By: #### 2 4362-6 #### RACHELLE Ramirez ([id number]) [facility] ([facility]) [address] [place] [address] 12882 ALT With P-5'-P [Catalytic activity/Vol] 36 U/L Normal 7-45 [facility] Comment on above: Result Comment: Arabella ents treated with Sulfasalazine may generate falsely decreased results for ALT. Performed By: #### 2 4362-6 #### RACHELLE Ramirez ([id number]) [facility] ([facility]) [address] [place] [address] Anion gap [Moles/Vol] 17 mmol/L Normal 10-20 [facility] Comment on above: Performed By: #### 2 4362-6 #### RACHELLE Ramirez ([id number]) [facility] ([facility]) [address] [place] [address] AST With P-5'-P [Catalytic activity/Vol] 23 U/L Normal 9-39 [facility] Comment on above: Performed By: #### 2 4362-6 #### RACHELLE Ramirez ([id number]) [facility] ([facility]) [address] [place] [address] 93372 Bilirubin [Mass/Vol] 0.5 mg/dL Normal 0.0-1.2 [facility] Comment on above: Performed By: #### 2 4362-6 #### RACHELLE Ramirez ([id number]) [facility] ([facility]) [address] [place] [address] 93607 Calcium [Mass/Vol] 8.7 mg/dL Normal 8.6-10.6 [facility] Comment on above: Performed By: #### 2 4362-6 #### RACHELLE Ramirez ([id number]) [facility] ([facility]) [address] [place] [address] 67185 Chloride [Moles/Vol] 103 mmol/L Normal 98-107 [facility] Comment on above: Performed By: #### 2 4362-6 #### RACHELLE Ramirez ([id number]) [facility] ([facility]) [address] [place] [address] 21774 CO2 [Moles/Vol] 22 mmol/L Normal 21-32 [facility] Comment on above: Performed By: #### 2 4362-6 #### RACHELLE Ramirez ([id number]) [facility] ([facility]) [address] [place] [address] Creatinine [Mass/Vol] 1.03 mg/dL Normal 0.50-1.05 [facility] Comment on above: Performed By: #### 2 4362-6 #### RACHELLE Ramirez ([id number]) [facility] ([facility]) [address] [place] [address] 68875 Glomerular filtration rate/1.73 sq M.predicted 56 mL/min/1.73m*2 Low >60 [facility] Comment on above: Result Comment: Calc ulations of estimated GFR are performed using the 2020 CKD-EPI Study Refit equation without the race variable for the IDMS-Traceable creatinine methods. https://jasn.asnjournals.org/content/early//ASN.2020 254006 Performed By: #### 2 4362-6 #### RACHELLE Ramirez ([id number]) [facility] ([facility]) [address] [place] [address] 20395 Glucose [Mass/Vol] 137 mg/dL High 74-99 [facility] Comment on above: Performed By: #### 2 4362-6 #### RACHELLE Ramirez ([id number]) [facility] ([facility]) [address] [place] [address] 95017 Potassium [Moles/Vol] 4.6 mmol/L Normal 3.5-5.3 [facility] Comment on above: Performed By: #### 2 4362-6 #### RACHELLE Ramirez ([id number]) [facility] ([facility]) [address] [place] [address] 61294 Protein [Mass/Vol] 6.2 g/dL Low 6.4-8.2 [facility] Comment on above: Performed By: #### 2 4362-6 #### RACHELLE Ramirez ([id number]) [facility] ([facility]) [address] [place] [address] 97125 Sodium [Moles/Vol] 137 mmol/L Normal 136-145 [facility] Comment on above: Performed By: #### 2 4362-6 #### RACHELLE Ramirez ([id number]) [facility] ([facility]) [address] [place] [address] 86707 Urea nitrogen [Mass/Vol] 16 mg/dL Normal 6-23 [facility] Comment on above: Performed By: #### 2 4362-6 #### RACHELLE Ramirez ([id number]) [facility] ([facility]) [address] [place] [address] 93789 Cyclic citrullinated peptide Ab.IgGon 06-13-2024 Cyclic citrullinated peptide IgG Qn <1 Normal <3 [facility] Comment on above: Order Comment: THE T EST FOR ANTIBODIES SPECIFIC FOR CYCLICCITRULLINATED PEPTIDE (CCP) HAS SHOWN TO BEVALUABLE IN THE DIAGNOSIS OF RHEUMATOIDARTHRITIS. THE DIAGNOSTIC VALUE OFANTIBODIES TO CCP IN JUVENILE RHEUMATOIDARTHRITIS PATIENTS HAS NOT BEEN DETERMINED.ANTIBODIES TO CENTROMERE OR SS-A AND MYELOMAIGG MAY BE REACTIVE IN THIS ASSAY. Result Comment: NEGA TIVE < 3 U/ML POSITIVE >=3 U/ML Performed By: #### 2 4362-6 #### RACHELLE Ramirez ([id number]) [facility] ([facility]) [address] [place] [address] 78516 EXTENDED MYOSITIS PANELon Annotation comment [Interpretation] Narrative See Note Normal [facility] Comment on above: Result Comment: INTE RPRETIVE INFORMATION: Extended Myositis Panel If present, myositis-specific antibodies (MSA) are specific for myositis, and may be useful in establishing diagnosis as well as prognosis. MSAs are generally regarded as mutually exclusive with rare exceptions; the occurrence of two or more MSAs should be carefully evaluated in the context of patient's clinical presentation. Myositis-associated antibodies (MAA) may be found in patients with CTD including overlap syndromes, and are generally not specific for myositis. The following table will help in identifying the association of any antibodies found as either MSAs or Willa. Antibody Specificity . . . . . . . . . . . . MSA . . . . MAA SSA 52 (Ro) (YOCASTA) Antibody IgG . . . . . . . . . . . . . X SSA 60 (Ro) (YOCASTA) Antibody IgG . . . . . . . . . . . . . X Shanonn/CUFF TURNER MACHINE OPERATOR (YOCASTA) Ab, IgG . . . . . . . . . . . . . . . . X Neelima-1 (histidyl-tRNA synthetase) Ab, IgG . . X PL-12 (alanyl-tRNA synthetase) Antibody . . X PL-7 (threonyl-tRNA synthetase) Antibody . . X EJ (glycyl-tRNA synthetase) Antibody . . . . X OJ (isoleucyl-tRNA synthetase) Antibody . . X SRP (Signal Recognition Particle) Ab . . . . X Ku Antibody . . . . . . . . . . . . . . . . . . . . . . X PM/SCL 100 Antibody, IgG . . . . . . . . . . . . . . . . X Fibrillarin (U3 CUFF TURNER MACHINE OPERATOR) Ab, IgG . . . . . . . . . . . . . . X Mi-2 (nuclear helicase protein) Antibody . . X P155/140 Antibody . . . . . . . . . . . . . X TIF-1 gamma (155 kDa) Ab . . . . . . . . . . X SAE1 (SUMO activating enzyme) Ab . . . . . . X MDA5 (CADM-140) Ab . . . . . . . . . . . . X NXP2 (Nuclear matrix proten-2)Ab . . . . . . X This test was developed and its performance characteristics determined by [facility]. It has not been cleared or approved by the US Food and Drug Administration. This test was performed in a CLIA certified laboratory and is intended for clinical purposes. Performed By: #### 2 4362-6 #### RACHELLE Ramirez ([id number]) [facility] ([facility]) [address] [place] [address] Ej Ab Ql (S) Negative Normal Negative [facility] Comment on above: Performed By: #### 2 4362-6 #### RACHELLE Ramirez ([id number]) [facility] ([facility]) [address] [place], [place] [address] Fibrillarin Ab Ql (S) Negative Normal Negative [facility] Comment on above: Result Comment: Inte rpretive Information: Fibrillarin (U3 CUFF TURNER MACHINE OPERATOR) Antibody, IgG The presence of fibrillarin (U3-CUFF TURNER MACHINE OPERATOR) IgG antibodies in association with an WERO IFA nucleolar pattern is suggestive of systemic sclerosis (SSc). In SSc, these antibodies are associated with distinct clinical features, such as younger age at disease onset, frequent internal organ involvement (pulmonary hypertension, myositis and renal disease). Fibrillarin antibodies are detected more frequently in patients with SSc compared to other ethnic groups. Strong correlation with WERO IFA results is recommended. In a multi-ethnic cohort of SSc patients (n=98), U3-CUFF TURNER MACHINE OPERATOR antibodies detected by immunoblot had an agreement of 98.9 percent with the gold standard immunoprecipitation (IP) assay. Approximately 71 percent (5/7) of the borderline U3-CUFF TURNER MACHINE OPERATOR results with WERO nucleolar pattern in this cohort were IP negative. This test was developed and its performance characteristics determined by [facility]. It has not been cleared or approved by the US Food and Drug Administration. This test was performed in a CLIA certified laboratory and is intended for clinical purposes. Performed By: [facility] [address] [place] [address] 91346 Needle Punch Operator: Rosalee Upton MD, PhD [place] Number: [id number] Performed By: #### 2 4362-6 #### RACHELLE Ramirez ([id number]) [facility] ([facility]) [address] [place] [address] Neelima-1 extractable nuclear IgG Qn (S) 1 AU/mL Normal 0-40 [facility] Comment on above: Result Comment: INTE RPRETIVE INFORMATION: Neelima-1 Antibody, IgG 29 AU/mL or less.........Negative 30-40 AU/mL..............Equivocal 41 AU/mL or greater......Positive Presence of Neelima-1 (antihistidyl transfer RNA [t-RNA] synthetase) antibody is associated with polymyositis and may also be seen in patients with dermatomyositis. Neelima-1 antibody is associated with pulmonary involvement (interstitial lung disease), Raynaud phenomenon, arthritis, and motorboat mechanic helper's hands (implicated in antisynthetase syndrome). Performed By: #### 2 4362-6 #### RACHELLE Ramirez ([id number]) [facility] ([facility]) [address] [place] [address] 61924 Ku Ab Ql (S) Negative Normal Negative [facility] Comment on above: Performed By: #### 2 4362-6 #### RACHELLE Ramirez ([id number]) [facility] ([facility]) [address] [place] [address] 34041 MDA5 Ab Line blot Ql (S) Negative Normal Negative [facility] Comment on above: Performed By: #### 2 4362-6 #### RACHELLE Ramirez ([id number]) [facility] ([facility]) [address] [place] [address] 81046 Mi-2 Ab Ql (S) Negative Normal Negative [facility] Comment on above: Performed By: #### 2 4362-6 #### RACHELLE Ramirez ([id number]) [facility] ([facility]) [address] [place] [address] 46704 Mj Ab Line blot Ql (S) Negative Normal Negative [facility] Comment on above: Performed By: #### 2 4362-6 #### RACHELLE Ramirez ([id number]) [facility] ([facility]) [address] [place] [address] 33182 Nuclear Ab Ql (S) Negative Normal Negative [facility] Comment on above: Performed By: #### 2 4362-6 #### RACHELLE Ramirez ([id number]) [facility] ([facility]) [address] [place] [address] 41183 OJ Ab Ql (S) Negative Normal Negative [facility] Comment on above: Performed By: #### 2 4362-6 #### RACHELLE Ramirez ([id number]) [facility] ([facility]) [address] [place] [address]-12 Ab Ql (S) Negative Normal Negative [facility] Comment on above: Performed By: #### 2 4362-6 #### RACHELLE Ramirez ([id number]) [facility] ([facility]) [address] [place] [address]-7 Ab Ql (S) Negative Normal Negative [facility] Comment on above: Performed By: #### 2 4362-6 #### RACHELLE Ramirez ([id number]) [facility] ([facility]) [address] [place] [address] 94999 PM-SCL-100 Ab Line blot Ql (S) Negative Normal Negative [facility] Comment on above: Result Comment: INTE RPRETIVE INFORMATION: PM/Scl-100 Antibody, IgG by Immunoblot The presence of PM/Scl-100 IgG antibody along with a positive WERO IFA nucleolar pattern is associated with connective tissue diseases such as polymyositis (PM), dermatomyositis (DM), systemic sclerosis (SSc), and polymyositis/systemic sclerosis overlap syndrome. The clinical relevance of PM/Scl-100 IgG antibody with a negative WERO IFA nucleolar pattern is unknown. PM/Scl-100 is the main target epitope of the PM/Scl complex, although antibodies to other targets not detected by this assay may occur. This test was developed and its performance characteristics determined by [facility]. It has not been cleared or approved by the US Food and Drug Administration. This test was performed in a CLIA certified laboratory and is intended for clinical purposes. Performed By: #### 2 4362-6 #### RACHELLE Ramirez ([id number]) [facility] ([facility]) [address] [place] [address] 77015 Signal Recognition Particle (SRP) Ab Ql Negative Normal Negative [facility] Comment on above: Performed By: #### 2 4362-6 #### RACHELLE Ramirez ([id number]) [facility] ([facility]) [address] [place] [address] 63963 Sjogrens syndrome-A extractable nuclear 60kD Ab Qn (S) 0 AU/mL Normal 0-40 [facility] Comment on above: Result Comment: REFE RENCE INTERVAL: SSA-60 (Ro60) (YOCASTA) Antibody, IgG 29 AU/mL or Less ............. Negative 30 - 40 AU/mL ................ Equivocal 41 AU/mL or Greater .......... Positive Performed By: #### 2 4362-6 #### RACHELLE Ramirez ([id number]) [facility] ([facility]) [address] [place] [address] 64464 Sjogrens syndrome-A extractable nuclear IgG Ql (S) 2 AU/mL Normal 0-40 [facility] Comment on above: Result Comment: INTE RPRETIVE INFORMATION: SSA-52 (Ro52) (YOCASTA) Antibody, IgG 29 AU/mL or Less ............. Negative 30 - 40 AU/mL ................ Equivocal 41 AU/mL or Greater .......... Positive SSA-52 (Ro52) and/or SSA-60 (Ro60) antibodies are associated with a diagnosis of Sjogren syndrome, systemic lupus erythematosus (SLE), and systemic sclerosis. SSA-52 antibody overlaps significantly with the major SSc-related antibodies. SSA-52 (Ro52) antibody occurs frequently in patients with inflammatory myopathies, often in the presence of interstitial lung disease. Performed By: #### 2 4362-6 #### RACHELLE Ramirez ([id number]) [facility] ([facility]) [address] [place] [address] 77966 SUMO-activating enzyme subunit 1 Ab Line blot Ql (S) Negative Normal Negative [facility] Comment on above: Performed By: #### 2 4362-6 #### RACHELLE Ramirez ([id number]) [facility] ([facility]) [address] [place] [address] 37228 TIF1-gamma Ab Line blot Ql (S) Negative Normal Negative [facility] Comment on above: Performed By: #### 2 4362-6 #### RACHELLE Ramirez ([id number]) [facility] ([facility]) [address] [place] [address] 12933 U1 small nuclear ribonucleoprotein IgG Qn (S) 2 Units Normal 0-19 [facility] Comment on above: Result Comment: INTE RPRETIVE INFORMATION: Shannon/CUFF TURNER MACHINE OPERATOR (YOCASTA) Antibody, IgG 19 Units or Less ............. Negative 20 to 39 Units ............... Weak Positive 40 to 80 Units ............... Moderate Positive 81 Units or greater .......... Strong Positive Shannon/CUFF TURNER MACHINE OPERATOR antibodies are frequently seen in patients with mixed connective tissue disease (MCTD) and are also associated with other systemic autoimmune rheumatic diseases (SARDs) such as systemic lupus erythematosus (SLE), systemic sclerosis, and myositis. Antibodies targeting the Shannon/CUFF TURNER MACHINE OPERATOR antigenic complex also recognize Shannon antigens, therefore, the Shannon antibody response must be considered when interpreting these results. Performed By: #### 2 4362-6 #### RACHELLE Ramirez ([id number]) [facility] [place] [address] HYPERSENSITIVITY PANELon A. fumigatus 1 Ab Immune diff Ql (S) Not detected Normal None Detected [facility] Comment on above: Performed By: #### 2 4362-6 #### RACHELLE Ramirez ([id number]) [facility] [place] [address] A. fumigatus 6 Ab Immune diff Ql (S) Not detected Normal None Detected [facility] Comment on above: Performed By: #### 2 4362-6 #### RACHELLE Ramirez ([id number]) [facility] ([facility]) [address] [place] [address] A. pullulans Ab Immune diff Ql (S) Not detected Normal None Detected [facility] Comment on above: Performed By: #### 2 4362-6 #### RACHELLE Ramirez ([id number]) [facility] ([facility]) [address] [place] [address] [place] serum Ab Immune diff Ql (S) Not detected Normal None Detected [facility] Comment on above: Performed By: #### 2 4362-6 #### RACHELLE Ramirez ([id number]) [facility] ([facility]) [address] [place] [address] 61253 S. rectivirgula Ab Immune diff Ql (S) Not detected Normal None Detected [facility] Comment on above: Result Comment: Test ing includes antibodies directed at Aureobasidium pullulans, Aspergillus fumigatus #1, Aspergillus fumigatus #6, Micropolyspora faeni, and [place] Serum. Performed By: [facility] [address] [place] [address] 65107 Needle Punch Operator: Rosalee Upton MD, PhD CLIA Number: [id number] Performed By: #### 2 4362-6 #### RACHELLE Ramirez ([id number]) [facility] ([facility]) [address] [place], [place] [phone] HbA1c (Bld) [Mass fraction]o n 06-13-2024 Average glucose Estimated from glycated hemoglobin (Bld) [Mass/Vol] 111 mg/dL Normal Not Established [facility] Comment on above: Order Comment: Diagn osis of Hzgfydmo-OrwnqwIrb-Jvmubsng: < or = 5.6%Increased risk for developing diabetes: 5.7-6.4%Diagnostic of diabetes: > or = 6.5% Performed By: #### 5 7021-8 #### RACHELLE Ramirez ([id number]) [facility] ([facility]) [address] [place] [address] 87126 Hemoglobin A1c/Hemoglobin.to tamie 06-13-2024 HbA1c (Bld) [Mass fraction] 5.5 % Normal See comment [facility] Comment on above: Order Comment: Diagn osis of Oqtnhimk-FvcgxwKpo-Ggieqizj: < or = 5.6%Increased risk for developing diabetes: 5.7-6.4%Diagnostic of diabetes: > or = 6.5% Performed By: #### 5 7021-8 #### RACHELLE Ramirez ([id number]) [facility] ([facility]) [address] [place] [address] 93710 Nuclear Abon 06-13-2024 Nuclear Ab Hep2 substrate Ql (S) Negative Normal Negative [facility] Comment on above: Result Comment: The Antinuclear Antibody (WERO) test was performed using indirect immunofluorescence assay with HEp-2 cells slide. Performed By: #### 2 4362-6 #### RACHELLE Ramirez ([id number]) [facility] ([facility]) [address] [place] [address] 31672 Rheumatoid factoron 06-13-20 Rheumatoid factor Nephelometry Qn (S) <10 Normal 0-15 [facility] Comment on above: Performed By: #### 2 4362-6 #### RACHELLE Ramirez ([id number]) [facility] ([facility]) [address] [place] [address] Sjogrens syndrome-A extracta ble nuclear Abon 06-13-2024 Sjogrens syndrome-A extractable nuclear Ab IA Qn (S) <0.2 Normal <1.0 [facility] Comment on above: Result Comment: < 1. 0 = NEGATIVE >=1.0 = POSITIVE Performed By: #### 2 4362-6 #### RACHELLE Ramirez ([id number]) [facility] ([facility]) [address] [place] [address] Sjogrens syndrome-B extracta ble nuclear Abon 06-13-2024 Sjogrens syndrome-B extractable nuclear Ab IA Qn (S) <0.2 Normal <1.0 [facility] Comment on above: Result Comment: < 1. 0 = NEGATIVE >=1.0 = POSITIVE Performed By: #### 2 4362-6 #### RACHELLE Ramirez ([id number]) [facility] ([facility]) [address] [place] [address] 40700 Progress Noteon 06-07-2024 Progress Note Normal [facility] 36on 06-02-2024 36 Normal [facility] 36on 06-01-2024 36 Received call from Keren from [facility]. She reports she took patients BP twice today both times 170/50 (left arm) patient did inform her she had OV with [facility] today. She wanted office to be aware of BP. Normal [facility] ECG 12 lead - CLINIC PERFORM EDon 06-01-2024 Sinus Bradycardia WITHIN NORMAL LIMITS [facility] ECG 12 lead - CLINIC PERFORM EDOrdered By: Meet Denny on 06-01-2024 [facility] Work Phone: Progress Noteon 06-01-2024 Progress Note Elevated but has history of hypotension/orthostasis . Taken off amlodipine a few months ago. Will make no changes. Normal [facility] Progress Note She is s/p PVI + PWI + ablation of atypical flutter with mitral line last month. She is maintaining normal rhythm. Will stop amiodarone today. Continue Eliquis lifelong given high stroke risk. Normal [facility] Progress Note Likely tachycardia mediated. Her last EF was 48%. She appears euvolemic today. Now just using lasix PRN. Plan to repeat echo prior to next visit to reassess EF. Normal [facility] Progress Note Normal [facility] CT CHEST WO IV CONTRASTon CT CHEST WO IV CONTRAST Normal [facility] 36on 05-16-2024 36 I called and reviewe d the note from Kristy Doran WINDOWS TECHNICAL SPECIALIST with [facility]. [facility] will continue her current medications and follow up as scheduled. Normal [facility] [facility] 36 [facility] 36 I called and spoke w torey Murray. She is still not feeling fully recovered. She is interested in In Lab Sleep study in July. She sees the Manager Of Applications Development in June. She also asked about the Carotid CT results. Normal [facility] 36 [facility] 36on 05-15-2024 36 Normal [facility] 36on 05-12-2024 36 PC to pt. She was informed and verbalized understanding. Normal [facility] 36 Normal to have a sma ll knot at groin site. Ecchymosis also normal. As long as knot not getting bigger in size or painful, just monitor at this time. Sometimes can take weeks to fully go away. Normal [facility] 36 Normal [facility] 36 Normal [facility] 36on 05-09-2024 36 Thanks, nothing different to do at this time if she is back in normal rhythm. Normal [facility] 36 [facility] 36 [facility] 36on 05-06-2024 36 Noted, agree. Normal [facility] 36 Normal [facility] 36 Patient called in, s he had ablation yesterday (05-05-24) Patient woke up today, with her gauze saturated. She states it looks pink, is not sure if she should take off as she was instructed to today. Patient concerned if she should be seen? Please advise. Normal [facility] ECG 12-LEADon 05-06-2024 ECG 12-LEAD IMPRESSION: Sinus rhythm Electronically Signed On 05-06-2024 15:30:42 EDT by Jerel Jaime [facility] [id number] 05-05-2024 [id number] [facility] Anesthesia Noteon 05-05-2024 Anesthesia Note Normal [facility] Anesthesia Note Normal [facility] Electrophysiology studyon Successful ablation for atrial fibrillation with pulse field ablation of all four pulmonary veins and posterior wall isolation. Atypical flutter ablation with PFA with anterior mitral line. The patient tolerated the procedure well with no immediate complications. Plan: 1. Transfer to PACU for observation 2. Bedrest for 2.5 hours post-sheath pull, then ambulate as tolerated 3. Resume anticoagulation. 4. Cont current home meds as prescribed 5. Discharge home this afternoon pending above Procedure Details Procedure: Atrial Fibrillation Ablation with PFA Assistants: None Catheters or Drains: Not Applicable Specimens: Not Applicable Estimated Blood Loss: < 10mL Complications: None Procedure Description: The indications, risks, benefits, alternatives, and details of the procedure were explained to the patient who expressed understanding of the risks including but are not limited to: pain, bleeding, and infection for which the risk is less than 1%. More serious risks, including cardiac perforation and tamponade, vascular trauma, pulmonary vein stenosis, atrio-esophageal fistula, diaphragmatic paralysis, life-threatening arrhythmia, need for permanent pacemaker, stroke, heart attack, and/or , for which the overall risk ranges 0.1-1%. After all questions were answered, the patient provided informed and written consent. The pt was brought to the EP lab in the fasting state. The presenting rhythm was normal sinus. Access was obtained in the right femoral vein using the modified Seldinger technique with the aid of ultrasound. Three sheaths (8Fr, 8.5Fr, 8.5Fr) were placed in the right femoral vein.A Alvarado CS catheter was placed in the CS. An ICE transducer was advanced into the right atrium via the sheath in the right femoral vein. Echocardiography was used to guide the transseptal puncture, guide positioning of the ablation tip electrode at the target sites and monitor for complications. No pericardial effusion noted pre or post ablation. The sheath in the right femoral vein was exchanged over a wire for a Versacross Faradrive sheath. Heparin was given prior to transseptal puncture. A transseptal access was performed using a Versacross needle assembly and sheath was advanced into the left atrium. Additional heparin boluses were given to maintain an ACT between 300-400 sec throughout the procedure. A left atrial voltage map was constructed using Carto3 and a PentaRay mapping catheter which showed significant areas of low voltage (scar) on the posterior and anterior wall. PV potentials were present at the antrum of all four PVs. Atropine was given to avoid vagal events during ablation. A Farwave catheter was used for ablation. Isolation of all 4 PVs was achieved with eight applications in each vein (4 flower, 4 basket). Two applications were given in the flower configuration in eight locations to isolate the posterior wall. Post ablation, the PentaRay catheter was used to confirm isolation of all four pulmonary veins and the posterior wall Post ablation, rapid atrial pacing induced atrial flutter with TCL 330ms. CS activation was proximal to distal. Activation map suggested mitral flutter. The Farawave was used to create an anterior mitral line from the RSPV to the mitral valve. Three applications were given in four locations in the flower configuration to create the line. Post-ablation mapping showed isolation of most of the anterior wall as well. Rapid atrial pacing failed to induce sustained flutter. Protamine was given to reverse the heparin. All catheters and sheaths were removed and Vascade devices were used for hemostasis. [facility] Electrophysiology studyOrder ed By: Walt Leigh on 05-05-2024 [employer] Work Phone: Laboratory - Chemistry and C hemistry - challengeon 05-05-2024 Glucose [Mass/Vol] 158 mg/dL High 70 - 100 mg/dL [employer] Glucose [Mass/Vol] 106 mg/dL High 70 - 100 mg/dL [employer] No Panel Informationon 05-05 Interpretation and review of laboratory results Abnormal [facility] Performed by: [facility], [address] [place] [address] [place] [address] CLIA ID: [id number] [facility] Interpretation and review of laboratory results Abnormal [facility] POCT ACT 352 High [facility] Performed by: [facility], [address] [place] [address], [place] [address] CLIA ID: [id number] [facility] Interpretation and review of laboratory results Abnormal [facility] POCT ACT 291 High [facility] Performed by: [facility], [address] [place] [address], [place] [address] CLIA ID: [id number] [facility] Interpretation and review of laboratory results Abnormal [facility] POCT ACT 348 High [facility] Performed by: [facility], [address] [place] [address], [place] [address] CLIA ID: [id number] [facility] Interpretation and review of laboratory results Abnormal [facility] POCT ACT 377 High [facility] Performed by: [facility], [address] [place] [address], [facility] [address] CLIA ID: [id number] [facility] Interpretation and review of laboratory results Abnormal [facility] Performed by: [facility], [address] [place] [address], [place] [address] CLIA ID: [id number] [facility] Nursing Noteon 05-05-2024 Nursing Note Right groin is unchanged from previous charting. Will discharge the pt. She verbalized understanding regarding any changes with the dressing. Normal [facility] Nursing Note There is a small sheryl unt of sero sanguinous blood at the tip of the dressing on the medial side. No other bleeding is noted and the site is soft without hematoma. Normal [facility] Nursing Note Ambulated in the hallway and the pt's right groin dressing is dry and intact with no bleeding noted. Normal [facility] Progress Noteon 05-05-2024 Progress Note Normal [facility] Home sleep teston 05-04-2024 [facility] No Panel InformationOrdered By: Baljeet Nicole on 05-02-2024 Left CCA dist EDV 18.0 cm/s [facility] Work Phone: Left CCA dist PSV 116.3 cm/s [facility] Work Phone: Left CCA mid EDV 17.40 cm/s [facility] Work Phone: Left CCA mid PSV 64.30 cm/s [facility] Work Phone: Left CCA prox EDV 17.3 cm/s [facility] Work Phone: Left CCA prox PSV 89.4 cm/s [facility] Work Phone: Left ECA EDV 0.00 cm/s [facility] Work Phone: Left ECA PSV 107.2 cm/s [facility] Work Phone: Left ICA dist EDV 18.3 cm/s [facility] Work Phone: Left ICA dist PSV 61.2 cm/s [facility] Work Phone: Left ICA mid EDV 14.6 cm/s [facility] Work Phone: Left ICA mid PSV 63.6 cm/s [facility] Work Phone: Left ICA/CCA PSV 0.99 [facility] Work Phone: Left subclavian prox EDV 14.1 cm/s [facility] Work Phone: Left subclavian prox PSV 164.1 cm/s [facility] Work Phone: Left vertebral EDV 12.20 cm/s [facility] Work Phone: Left vertebral PSV 59.4 cm/s [facility] Work Phone: Right CCA dist EDV 0.0 cm/s [facility] Work Phone: Right cca dist PSV 92.9 cm/s [facility] Work Phone: Right CCA mid EDV 7.90 cm/s [facility] Work Phone: Right CCA mid PSV 79.80 cm/s [facility] Work Phone: Right CCA prox EDV 10.5 cm/s [facility] Work Phone: Right CCA prox PSV 83.4 cm/s [facility] Work Phone: Right ECA EDV 8.40 cm/s [facility] Work Phone: Right ECA PSV 118.9 cm/s [facility] Work Phone: Right ICA dist EDV 16.9 cm/s [facility] Work Phone: Right ICA dist PSV 109.0 cm/s [facility] [employer] Work Phone: Right ICA mid EDV 14.8 cm/s [facility] [employer] Work Phone: Right ICA mid PSV 102.6 cm/s [facility] Work Phone: Right ICA prox EDV 12.6 cm/s [facility] Work Phone: Right ICA prox PSV 132.6 cm/s [facility] Work Phone: Right ICA/CCA PSV 1.66 [facility] Work Phone: Right subclavian prox EDV 19.3 cm/s [facility] Work Phone: Right subclavian prox PSV 346.9 cm/s [facility] Work Phone: Right vertebral EDV 12.10 cm/s [facility] Work Phone: Right vertebral PSV 73.4 cm/s [facility] Work Phone: No Panel Informationon 05-02 <50% stenosis in the right internal carotid artery. Mild, heterogeneous and calcific plaque (proximal) in the right internal carotid artery. RightSubclavian Artery: >50% stenosis. Normal antegrade flow involving the right vertebral artery. 50-59% stenosis in the left internal carotid artery. Moderate, heterogeneous and calcific plaque (proximal) in the left internal carotid artery. Left Common Carotid Artery: Heterogeneous and calcific plaque (prox, mid and distal). Abnormal, delayed waveform. Cannot rule out more proximal stenosis. Normal antegrade flow involving the left vertebral artery. Right Carotid Common Carotid Artery: Patent. Mild and heterogeneous plaque (distal). Proximal CCA has turbulent flow. Distal CCA has turbulent flow. Internal Carotid Artery: <50% stenosis. Mild, heterogeneous and calcific plaque (proximal). Unable to replicate previously elevated velocities. External Carotid Artery: <50% stenosis. Mild and heterogeneous plaque (proximal). Vertebral Artery: Flow is antegrade. Abnormal waveform Subclavian Artery: >50% stenosis. Left Carotid Common Carotid Artery: Heterogeneous and calcific plaque (prox, mid and distal). Abnormal, delayed waveform. Cannot rule out more proximal stenosis. Internal Carotid Artery: 50-59% stenosis. Moderate, heterogeneous and calcific plaque (proximal). External Carotid Artery: <50% stenosis. Moderate, heterogeneous and calcific plaque (prox). Vertebral Artery: Flow is antegrade. Subclavian Artery: Normal. Turbulent flow. Cannot rule out more proximal stenosis.Subclavian has turbulent flow. Comparison Study The exam was compared to the study performed on 03/24/2023. 50-59% stenosis in the right internal carotid artery. Mild and calcific plaque (proximal) in the right internal carotid artery. 50-59% stenosis in the left internal carotid artery. Calcific plaque (proximal) in the left internal carotid artery. Normal antegrade flow involving the right vertebral artery. Normal antegrade flow involving the left vertebral artery. Left clavicle to bifurcation measurement: 5 cm. Right clavicle to bifurcation measurement: 6.5 cm. 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 During the study longitudinal and transverse views were obtained. Pulsed wave doppler was performed. The exam was performed with the patient in the supine position. Overall the study quality was adequate. CV [facility]ACS Renal function 2000 panelon 05-02-2024 Albumin BCP dye [Mass/Vol] 3.8 g/dL Normal 3.4-5.0 [facility] Comment on above: Performed By: #### 5 7021-8 #### RACHELLE Ramirez ([id number]) [facility] ([facility]) [address] [place] [address] Anion gap [Moles/Vol] 14 mmol/L Normal 10-20 [facility] Comment on above: Performed By: #### 5 7021-8 #### RACHELLE SHELBYER L ([id number]) [facility] ([facility]) [address] [place] [address] Calcium [Mass/Vol] 8.8 mg/dL Normal 8.6-10.6 [facility] Comment on above: Performed By: #### 5 7021-8 #### RACHELLE SCHMOTZER L ([id number]) [facility] ([facility]) [id number] [place] [address] Chloride [Moles/Vol] 105 mmol/L Normal 98-107 [facility] Comment on above: Performed By: #### 5 7021-8 #### RACHELLE TRUONGMOTZER L ([id number]) [facility] ([facility]) [address] [place] [address]057 CO2 [Moles/Vol] 24 mmol/L Normal 21-32 [facility] Comment on above: Performed By: #### 5 7021-8 #### RACHELLE TRUONGMOTZER L ([id number]) [facility] ([facility]) [address] [place] [address] Creatinine [Mass/Vol] 1.13 mg/dL High 0.50-1.05 [facility] Comment on above: Performed By: #### 5 7021-8 #### RACHELLE TRUONGMOTZER L ([id number]) [facility] ([facility]) [address] [place] [address] Glomerular filtration rate/1.73 sq M.predicted 50 mL/min/1.73m*2 Low >60 [facility] Comment on above: Result Comment: Calc ulations of estimated GFR are performed using the 2020 CKD-EPI Study Refit equation without the race variable for the IDMS-Traceable creatinine methods. https://jasn.asnjournals.org/content/early/ASN.2020 910287 Performed By: #### 5 7021-8 #### RACHELLE TRUONGMOTZER L ([id number]) [facility] ([facility]) [id number] [place] [address] Glucose [Mass/Vol] 117 mg/dL High 74-99 [facility] Comment on above: Performed By: #### 5 7021-8 #### RACHELLE Ramirez ([id number]) [facility] ([facility]) [address] [place] [address] Phosphate [Mass/Vol] 4.2 mg/dL Normal 2.5-4.9 [facility] Comment on above: Result Comment: The performance characteristics of phosphorus testing in heparinized plasma have been validated by the individual laboratory site where testing is performed. Testing on heparinized plasma is not approved by the FDA; however, such approval is not necessary. Performed By: #### 5 7021-8 #### RACHELLE Ramirez ([id number]) [facility] ([facility]) [address] [place] [address] Potassium [Moles/Vol] 4.4 mmol/L Normal 3.5-5.3 [facility] Comment on above: Performed By: #### 5 7021-8 #### RACHELLE Ramirez ([id number]) [facility] ([facility]) [address] [place] [address] Sodium [Moles/Vol] 139 mmol/L Normal 136-145 [facility] Comment on above: Performed By: #### 5 7021-8 #### RACHELLE Ramirez ([id number]) [facility] ([facility]) [address] [place] [address] Urea nitrogen [Mass/Vol] 20 mg/dL Normal 6-23 [facility] Comment on above: Performed By: #### 5 7021-8 #### RACHELLE OBRIEN L ([id number]) [facility] ([facility]) [address] [place] [address] 36on 04-26-2024 36 I called and relayed the detailed message from Kristy Doran CNP to Rolando. She would like the Lab order faxed to the Lab on [facility]. Normal [facility] 36 Normal [facility] 36 Normal [facility] 36 Patient called concerned that her blood pressure has been elevated recently averaging 180-191/48-53. She is also short of breath. Normal [facility] 36on 04-20-2024 36 Labs received via fa x. Printed and given to Rohan. Also sent to scanning. 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 Okay to schedule. Thank you Normal [facility] 36 I will work on this. Thank you [facility] 36 Can I please have an auth for PVI 05-05-24? Normal [facility] CBC panel Auto (Bld)on 04-19 Erythrocyte distribution width (RBC) [Ratio] 13.6 % Normal 11.5-14.5 [facility] Comment on above: Performed By: #### 5 7021-8 #### RACHELLE Ramirez ([id number]) [facility] ([facility]) [address] [place] [address] Hematocrit (Bld) [Volume fraction] 31.6 % Low 36.0-46.0 [facility] Comment on above: Performed By: #### 5 7021-8 #### RACHELLE Ramirez ([id number]) [facility] ([facility]) [address] [place] [address]53 Hemoglobin (Bld) [Mass/Vol] 9.4 g/dL Low 12.0-16.0 [facility] Comment on above: Performed By: #### 5 7021-8 #### RACHELLE Ramirez ([id number]) [facility] ([facility]) [address] [place] [address]008 MCH (RBC) [Entitic mass] 30.1 pg Normal 26.0-34.0 [facility] Comment on above: Performed By: #### 5 7021-8 #### RACHELLE Ramirez ([id number]) [facility] ([facility]) [id number] [place] [address] 33283 MCHC (RBC) [Mass/Vol] 29.7 g/dL Low 32.0-36.0 [facility] Comment on above: Performed By: #### 5 7021-8 #### RACHELLE Ramirez ([id number]) [facility] ([facility]) [id number] [place] [address]378 MCV (RBC) [Entitic vol] 101 fL High 80-100 [facility] Comment on above: Performed By: #### 5 7021-8 #### RACHELLE Ramirez ([id number]) [facility] ([facility]) [address] [place] [address] 02533 Nucleated RBC/100 WBC (Bld) [Ratio] 0.0 /100 WBCs Normal 0.0-0.0 [facility] Comment on above: Performed By: #### 5 7021-8 #### RACHELLE Ramirez ([id number]) [facility] ([facility]) [address] [place] [address] 47556 Platelets (Bld) [#/Vol] 241 x10*3/uL Normal 150-450 [facility] Comment on above: Performed By: #### 5 7021-8 #### RACHELLE Ramirez ([id number]) [facility] ([facility]) [address] [place] [address] 03283 RBC (Bld) [#/Vol] 3.12 x10*6/uL Low 4.00-5.20 [facility] Comment on above: Performed By: #### 5 7021-8 #### RACHELLE Ramirez ([id number]) [facility] ([facility]) [id number] [place] [address] 06400 WBC (Bld) [#/Vol] 7.0 x10*3/uL Normal 4.4-11.3 [facility] Comment on above: Performed By: #### 5 7021-8 #### RACHELLE Ramirez ([id number]) [facility] ([facility]) [address] [place] [address] 48234 Comprehensive metabolic 2000 panelon 04-19-2024 Albumin BCP dye [Mass/Vol] 3.9 g/dL Normal 3.4-5.0 [facility] Comment on above: Performed By: #### 5 7021-8 #### RACHELLE Ramirez ([id number]) [facility] ([facility]) [address] [place] [address] ALP [Catalytic activity/Vol] 53 U/L Normal 33-136 [facility] Comment on above: Performed By: #### 5 7021-8 #### RACHELLE Ramirez ([id number]) [facility] ([facility]) [address] [place] [address] ALT With P-5'-P [Catalytic activity/Vol] 48 U/L High 7-45 [facility] Comment on above: Result Comment: Arabella ents treated with Sulfasalazine may generate falsely decreased results for ALT. Performed By: #### 5 7021-8 #### RACHELLE Ramirez ([id number]) [facility] ([facility]) [id number] [place] [address] Anion gap [Moles/Vol] 16 mmol/L Normal 10-20 [facility] Comment on above: Performed By: #### 5 7021-8 #### RACHELLE Ramirez ([id number]) [facility] ([facility]) [id number] [place] [address] 43761 AST With P-5'-P [Catalytic activity/Vol] 33 U/L Normal 9-39 [facility] Comment on above: Performed By: #### 5 7021-8 #### RACHELLE Ramirez ([id number]) [facility] ([facility]) [address] [place] [address] Bilirubin [Mass/Vol] 0.4 mg/dL Normal 0.0-1.2 [facility] Comment on above: Performed By: #### 5 7021-8 #### RACHELLE Ramirez ([id number]) [facility] ([facility]) [address] [place] [address] Calcium [Mass/Vol] 8.7 mg/dL Normal 8.6-10.6 [facility] Comment on above: Performed By: #### 5 7021-8 #### RACHELLE Ramirez ([id number]) [facility] ([facility]) [address] [place] [address] Chloride [Moles/Vol] 104 mmol/L Normal 98-107 [facility] Comment on above: Performed By: #### 5 7021-8 #### RACHELLE TRUONGMOTZER L ([id number]) [facility] ([facility]) [address] [place] [address] CO2 [Moles/Vol] 22 mmol/L Normal 21-32 [facility] Comment on above: Performed By: #### 5 7021-8 #### RACHELLE OBRIEN L ([id number]) [facility] ([facility]) [address] [place] [address] 80357 Creatinine [Mass/Vol] 1.08 mg/dL High 0.50-1.05 [facility] Comment on above: Performed By: #### 5 7021-8 #### RACHELLE OBRIEN L ([id number]) [facility] ([facility]) [address] [place] [address] Glomerular filtration rate/1.73 sq M.predicted 53 mL/min/1.73m*2 Low >60 [facility] Comment on above: Result Comment: Calc ulations of estimated GFR are performed using the 2020 CKD-EPI Study Refit equation without the race variable for the IDMS-Traceable creatinine methods. https://jasn.asnjournals.org/content/early//ASN.2020 370401 Performed By: #### 5 7021-8 #### RACHELLE OBRIEN L ([id number]) [facility] ([facility]) [address] [place] [address] Glucose [Mass/Vol] 91 mg/dL Normal 74-99 [facility] Comment on above: Performed By: #### 5 7021-8 #### RACHELLE OBRIEN L ([id number]) [facility] ([facility]) [address] [place] [address] Potassium [Moles/Vol] 4.9 mmol/L Normal 3.5-5.3 [facility] Comment on above: Performed By: #### 5 7021-8 #### RACHELLE Ramirez ([id number]) [facility] ([facility]) [id number] [place] [address] 29705 Protein [Mass/Vol] 6.2 g/dL Low 6.4-8.2 [facility] Comment on above: Performed By: #### 5 7021-8 #### RACHELLE Ramirez ([id number]) [facility] [facility] [id number] [place] [address] 02426 Sodium [Moles/Vol] 137 mmol/L Normal 136-145 [facility] Comment on above: Performed By: #### 5 7021-8 #### RACHELLE Ramirez ([id number]) [facility]) [address] [place] [address] 93156 Urea nitrogen [Mass/Vol] 14 mg/dL Normal 6-23 [facility] Comment on above: Performed By: #### 5 7021-8 #### RACHELLE Ramirez ([id number]) [facility]) [address] [place] [address] 34456 36on 04-15-2024 36 Case request placed and prep for proc complete. Normal [facility] 36 Normal [facility] ECG 12 lead - CLINIC PERFORM EDon 04-15-2024 Sinus Rhythm WITHIN NORMAL LIMITS [facility] Progress Noteon 04-15-2024 Progress Note Normal [facility] 36on 04-01-2024 36 Pt called for refill on Ezetimibe 10mg. Pls eRx to [facility] [place]. Normal [facility] Comprehensive metabolic 2000 panelon 03-31-2024 Albumin BCP dye [Mass/Vol] 3.6 g/dL Normal 3.4-5.0 [facility] Comment on above: Performed By: #### 5 7021-8 #### RACHELLE Ramirez ([id number]) [facility]) [address] [place] [address] ALP [Catalytic activity/Vol] 44 U/L Normal 33-136 [facility] Comment on above: Performed By: #### 5 7021-8 #### RACHELLE Ramirez ([id number]) [facility]) [address] [place] [address] ALT With P-5'-P [Catalytic activity/Vol] 26 U/L Normal 7-45 [facility] Comment on above: Result Comment: Arabella ents treated with Sulfasalazine may generate falsely decreased results for ALT. Performed By: #### 5 7021-8 #### RACHELLE Ramirez ([id number]) [facility]) [address] [place] [address] Anion gap [Moles/Vol] 16 mmol/L Normal 10-20 [facility] Comment on above: Performed By: #### 5 7021-8 #### RACHELLE Ramirez ([id number]) [facility]) [address] [place] [address] AST With P-5'-P [Catalytic activity/Vol] 21 U/L Normal 9-39 [facility] Comment on above: Performed By: #### 5 7021-8 #### RACHELLE Ramirez ([id number]) [facility]) [address] [place] [address] Bilirubin [Mass/Vol] 0.3 mg/dL Normal 0.0-1.2 [facility] Comment on above: Performed By: #### 5 7021-8 #### RACHELLE Ramirez ([id number]) [facility]) [address] [place] [address] 67549 Calcium [Mass/Vol] 9.0 mg/dL Normal 8.6-10.6 [facility] Comment on above: Performed By: #### 5 7021-8 #### RACHELLE Ramirez ([id number]) [facility]) [address] [place] [address] Chloride [Moles/Vol] 106 mmol/L Normal 98-107 [facility] Comment on above: Performed By: #### 5 7021-8 #### RACHELLE Ramirez ([id number]) [facility]) [address] [place] [address] CO2 [Moles/Vol] 20 mmol/L Low 21-32 [facility] Comment on above: Performed By: #### 5 7021-8 #### RACHELLE Ramirez ([id number]) [facility]) [address] [place] [address] Creatinine [Mass/Vol] 1.37 mg/dL High 0.50-1.05 [facility] Comment on above: Performed By: #### 5 7021-8 #### RACHELLE Ramirez ([id number]) [facility]) [address] [place] [address] 83062 Glomerular filtration rate/1.73 sq M.predicted 40 mL/min/1.73m*2 Low >60 [facility] Comment on above: Result Comment: Calc ulations of estimated GFR are performed using the 2020 CKD-EPI Study Refit equation without the race variable for the IDMS-Traceable creatinine methods. https://jasn.asnjournals.org/content/early//ASN.2020 565487 Performed By: #### 5 7021-8 #### RACHELLE Ramirez ([id number]) [facility]) [address] [place] [address] 49986 Glucose [Mass/Vol] 148 mg/dL High 74-99 [facility] Comment on above: Performed By: #### 5 7021-8 #### RACHELLE OBRIEN L ([id number]) [facility]) [address] [place] [address] Potassium [Moles/Vol] 4.8 mmol/L Normal 3.5-5.3 [facility] Comment on above: Performed By: #### 5 7021-8 #### RACHELLE Ramirez ([id number]) [facility]) [address] [place] [address] 41663 Protein [Mass/Vol] 5.6 g/dL Low 6.4-8.2 [facility] Comment on above: Performed By: #### 5 7021-8 #### RACHELLE Ramirez ([id number]) [facility]) [address] [place] [address] 00700 Sodium [Moles/Vol] 137 mmol/L Normal 136-145 [facility] Comment on above: Performed By: #### 5 7021-8 #### RACHELLE Ramirez ([id number]) [facility]) [address] [place] [address] 26319 Urea nitrogen [Mass/Vol] 20 mg/dL Normal 6-23 [facility] Comment on above: Performed By: #### 5 7021-8 #### RACHELLE Ramirez ([id number]) [facility]) [address] [place] [address] 64226 36on 03-25-2024 36 Please review pended Rx for Carvedilol 12.5 mg and [facility] if appropriate. Thank you! Normal [facility] 36 See other telephone encounter for more information. Normal [facility] 36 Normal [facility] 36 Normal [facility] PATINSon 03-11-2024 PATINS Normal [facility] Progress Noteon 03-11-2024 Progress Note Normal [facility] Comprehensive metabolic 2000 panelon 03-10-2024 Albumin BCP dye [Mass/Vol] 3.9 g/dL Normal 3.4-5.0 [facility] Comment on above: Performed By: #### 5 7021-8 #### RACHELLE Ramirez ([id number]) [facility]) [address] [place] [address] 47030 ALP [Catalytic activity/Vol] 68 U/L Normal 33-136 [facility] Comment on above: Performed By: #### 5 7021-8 #### RACHELLE OBRIEN L ([id number]) [facility]) [address] [place] [address] ALT With P-5'-P [Catalytic activity/Vol] 198 U/L High 7-45 [facility] Comment on above: Result Comment: Arabella ents treated with Sulfasalazine may generate falsely decreased results for ALT. Performed By: #### 5 7021-8 #### RACHELLE OBRIEN L ([id number]) [facility]) [address] [place] [address] Anion gap [Moles/Vol] 19 mmol/L Normal 10-20 [facility] Comment on above: Performed By: #### 5 7021-8 #### RACHELLE OBRIEN L ([id number]) [facility]) [address] [place] [address] AST With P-5'-P [Catalytic activity/Vol] 35 U/L Normal 9-39 [facility] Comment on above: Performed By: #### 5 7021-8 #### RACHELLE OBRIEN L ([id number]) [facility]) [address] [place] [address] Bilirubin [Mass/Vol] 0.4 mg/dL Normal 0.0-1.2 [facility] Comment on above: Performed By: #### 5 7021-8 #### RACHELLE OBRIEN L ([id number]) [facility]) [address] [place] [address] Calcium [Mass/Vol] 9.3 mg/dL Normal 8.6-10.6 [facility] Comment on above: Performed By: #### 5 7021-8 #### RACHELLE TRUONGMOGISELLE L ([id number]) [facility]) [address] [place] [address] Chloride [Moles/Vol] 102 mmol/L Normal 98-107 [facility] Comment on above: Performed By: #### 5 7021-8 #### RACHELLE Ramirez ([id number]) [facility]) [address] [place] [address] CO2 [Moles/Vol] 23 mmol/L Normal 21-32 [facility] Comment on above: Performed By: #### 5 7021-8 #### RACHELLE Ramirez ([id number]) [facility]) [address] [place] [address] Creatinine [Mass/Vol] 1.27 mg/dL High 0.50-1.05 [facility] Comment on above: Performed By: #### 5 7021-8 #### RACHELLE Ramirez ([id number]) [facility]) [address] [place] [address] 47493 Glomerular filtration rate/1.73 sq M.predicted 43 mL/min/1.73m*2 Low >60 [facility] Comment on above: Result Comment: Calc ulations of estimated GFR are performed using the 2020 CKD-EPI Study Refit equation without the race variable for the IDMS-Traceable creatinine methods. https://jasn.asnjournals.org/content/early//ASN.2020 820027 Performed By: #### 5 7021-8 #### RACHELLE Ramirez ([id number]) [facility]) [address] [place] [address] Glucose [Mass/Vol] 90 mg/dL Normal 74-99 [facility] Comment on above: Performed By: #### 5 7021-8 #### RACHELLE Ramirez ([id number]) [facility]) [address] [place] [address] Potassium [Moles/Vol] 4.5 mmol/L Normal 3.5-5.3 [facility] Comment on above: Performed By: #### 5 7021-8 #### RACHELLE Ramirez ([id number]) [facility]) [address] [place] [address] Protein [Mass/Vol] 6.0 g/dL Low 6.4-8.2 [facility] Comment on above: Performed By: #### 5 7021-8 #### RACHELLE Ramirez ([id number]) [facility]) [address] [place] [address] 31053 Sodium [Moles/Vol] 139 mmol/L Normal 136-145 [facility] Comment on above: Performed By: #### 5 7021-8 #### RACHELLE Ramirez ([id number]) [facility]) [address] [place] [address] 56336 Urea nitrogen [Mass/Vol] 28 mg/dL High 6-23 [facility] Comment on above: Performed By: #### 5 7021-8 #### RACHELLE Ramirez ([id number]) [facility]) [address] [place] [address] 57692 Albumin/Creatinineon 024 Albumin/Creatinine DL <= 20 mg/L (U) [Mass ratio] 1411.2 ug/mg Creat High <30.0 [facility] Comment on above: Performed By: #### 1 4959-1 #### RACHELLE Ramirez ([id number]) [facility]) [address] [place] [address] 97428 Albumin/Creatinine DL <= 20 mg/L (U) [Mass ratio]on 03-07-2024 Albumin DL <= 20 mg/L (U) [Mass/Vol] 692.9 mg/L Normal Not established [facility] Comment on above: Performed By: #### 1 4959-1 #### RACHELLE Ramirez ([id number]) [facility]) [address] [place] [address] 93979 Creatinine (U) [Mass/Vol] 49.1 mg/dL Normal 20.0-320.0 [facility] Comment on above: Performed By: #### 1 4959-1 #### RACHELLE Ramirez ([id number]) [facility]) [address] [place] [address] 95715 Comprehensive metabolic 2000 panelon 03-07-2024 Albumin BCP dye [Mass/Vol] 3.6 g/dL Normal 3.4-5.0 [facility] Comment on above: Performed By: #### 2 4323-8 #### RACHELLE Ramirez ([id number]) [facility]) [address] [place] [address] ALP [Catalytic activity/Vol] 74 U/L Normal 33-136 [facility] Comment on above: Performed By: #### 2 4323-8 #### RACHELLE Ramirez ([id number]) [facility]) [address] [place] [address] ALT With P-5'-P [Catalytic activity/Vol] 389 U/L High 7-45 [facility] Comment on above: Result Comment: Arabella ents treated with Sulfasalazine may generate falsely decreased results for ALT. Performed By: #### 2 4323-8 #### RACHELLE Ramirez ([id number]) [facility]) [address] [place] [address] 02267 Anion gap [Moles/Vol] 15 mmol/L Normal 10-20 [facility] Comment on above: Performed By: #### 2 4323-8 #### RACHELLE Ramirez ([id number]) [facility]) [address] [place] [address] 45868 AST With P-5'-P [Catalytic activity/Vol] 28 U/L Normal 9-39 [facility] Comment on above: Performed By: #### 2 4323-8 #### RACHELLE Ramirez ([id number]) [facility]) [address] [place] [address] Bilirubin [Mass/Vol] 0.5 mg/dL Normal 0.0-1.2 [facility] Comment on above: Performed By: #### 2 4323-8 #### RACHELLE Ramirez ([id number]) [facility]) [address] [place] [address] Calcium [Mass/Vol] 9.3 mg/dL Normal 8.6-10.6 [facility] Comment on above: Performed By: #### 2 4323-8 #### RACHELLE Ramirez ([id number]) [facility]) [address] [place] [address] 58307 Chloride [Moles/Vol] 102 mmol/L Normal 98-107 [facility] Comment on above: Performed By: #### 2 4323-8 #### RACHELLE OBRIEN L ([id number]) [facility]) [address] [place] [address] 59786 CO2 [Moles/Vol] 24 mmol/L Normal 21-32 [facility] Comment on above: Performed By: #### 2 4323-8 #### RACHELLE Ramirez ([id number]) [facility]) [address] [place] [address] 90969 Creatinine [Mass/Vol] 1.24 mg/dL High 0.50-1.05 [facility] Comment on above: Performed By: #### 2 4323-8 #### RACHELLE Ramirez ([id number]) [facility]) [address] [place] [address] 13480 Glomerular filtration rate/1.73 sq M.predicted 45 mL/min/1.73m*2 Low >60 [facility] Comment on above: Result Comment: Calc ulations of estimated GFR are performed using the 2020 CKD-EPI Study Refit equation without the race variable for the IDMS-Traceable creatinine methods. https://jasn.asnjournals.org/content/early//ASN.2020 965113 Performed By: #### 2 4323-8 #### RACHELLE Ramirez ([id number]) [facility]) [address] [place] [address] 05371 Glucose [Mass/Vol] 135 mg/dL High 74-99 [facility] Comment on above: Performed By: #### 2 4323-8 #### RACHELLE Ramirez ([id number]) [facility]) [address] [place] [address] 40169 Potassium [Moles/Vol] 4.8 mmol/L Normal 3.5-5.3 [facility] Comment on above: Performed By: #### 2 4323-8 #### RACHELLE Ramirez ([id number]) [facility]) [address] [place] [address] 11495 Protein [Mass/Vol] 5.7 g/dL Low 6.4-8.2 [facility] Comment on above: Performed By: #### 2 4323-8 #### RACHELLE Ramirez ([id number]) [facility]) [address] [place] [address] 66450 Performed By: #### 2 885-2 #### RACHELLE Ramirez ([id number]) [facility]) [address] [place] [address] 46252 Sodium [Moles/Vol] 136 mmol/L Normal 136-145 [facility] Comment on above: Performed By: #### 2 4323-8 #### RACHELLE Ramirez ([id number]) [facility]) [address] [place] [address] 04061 Urea nitrogen [Mass/Vol] 28 mg/dL High 6-23 [facility] Comment on above: Performed By: #### 2 4323-8 #### RACHELLE Ramirez ([id number]) [facility]) [address] [place] [address] 23464 Phosphateon 03-07-2024 Phosphate [Mass/Vol] 4.1 mg/dL Normal 2.5-4.9 [facility] Comment on above: Result Comment: The performance characteristics of phosphorus testing in heparinized plasma have been validated by the individual laboratory site where testing is performed. Testing on heparinized plasma is not approved by the FDA; however, such approval is not necessary. Performed By: #### 2 777-1 #### RACHELLE Ramirez ([id number]) [facility]) [address] [place] [address] 03791 Proteinon 03-07-2024 Protein Qn (U) 99 mg/dL High 5-25 [facility] Comment on above: Performed By: #### 5 7021-8 #### RACHELLE Ramirez ([id number]) [facility]) [address] [place] [address] 88840 SERUM PROTEIN ELECTROPHORESI S + IMMUNOFIXATIONon 03-07-2024 Albumin [Mass/Vol] 3.4 g/dL Normal 3.4-5.0 [facility] Comment on above: Performed By: #### 5 7021-8 #### RACHELLE Ramirez ([id number]) [facility]) [address] [place] [address] 19774 ALPHA 1 GLOBULIN 0.3 g/dL Normal 0.2-0.6 [facility] Comment on above: Performed By: #### 5 7021-8 #### RACHELLE Ramirez ([id number]) [facility]) [address] [place] [address] 71810 ALPHA 2 GLOBULIN 0.8 g/dL Normal 0.4-1.1 [facility] Comment on above: Performed By: #### 5 7021-8 #### RACHELLE Ramirez ([id number]) [facility]) [address] [place] [address] 85223 BETA GLOBULIN 0.6 g/dL Normal 0.5-1.2 [facility] Comment on above: Performed By: #### 5 7021-8 #### RACHELLE Ramirez ([id number]) [facility]) [address] [place] [address] 20702 GAMMA GLOBULIN 0.6 g/dL Normal 0.5-1.4 [facility] Comment on above: Performed By: #### 5 7021-8 #### RACHELLE Ramirez ([id number]) [facility]) [address] [place] [address] 95312 IMMUNOFIXATION COMMENT Detected Normal Un [facility] Comment on above: Performed By: #### 5 7021-8 #### RACHELLE Ramirez ([id number]) [facility]) [address] [place] [address] 95768 PATH REVIEW - SERUM IMMUNOFIXATION Reviewed and approved by AGUSTIN STERLING on 03/09/24 at 8:24 PM. [facility] Comment on above: Performed By: #### 5 7021-8 #### RACHELLE Ramirez ([id number]) [facility]) [address] [place] [address] 04108 PATH REVIEW-SERUM PROTEIN ELECTROPHORESIS Reviewed and approved by AGUSTIN STERLING on 03/09/24 at 8:24 PM. [facility] Comment on above: Performed By: #### 5 7021-8 #### RACHELLE Ramirez ([id number]) [facility]) [address] [place] [address] 29584 PROTEIN ELECTROPHORESIS COMMENT Normal. [facility] Comment on above: Performed By: #### 5 7021-8 #### RACHELLE Ramirez ([id number]) [facility]) [address] [place] [address] 20352 URINE PROTEIN ELECTROPHORESI Son 03-07-2024 Albumin Elph (U) [Mass fraction] 84.5 % [facility] Comment on above: Performed By: #### 5 7021-8 #### RACHELLE Ramirez ([id number]) [facility]) [address] [place] [address] 30407 Alpha 1 globulin Elph (U) [Mass fraction] 1.9 % [facility] Comment on above: Performed By: #### 5 7021-8 #### RACHELLE OBRIEN L ([id number]) [facility]) [address] [place] [address] 97562 Alpha 2 globulin Elph (U) [Mass fraction] 3.6 % [facility] Comment on above: Performed By: #### 5 7021-8 #### RACHELLE Ramirez ([id number]) [facility]) [address] [place] [address] 49919 Beta globulin Elph (U) [Mass fraction] 5.6 % Normal [facility] Comment on above: Performed By: #### 5 7021-8 #### RACHELLE Ramirez ([id number]) [facility]) [address] [place] [address] 71885 Gamma globulin Elph (U) [Mass fraction] 4.4 % Normal [facility] Comment on above: Performed By: #### 5 7021-8 #### RACHELLE Ramirez ([id number]) [facility]) [address] [place] [address] 18824 PATH REVIEW-URINE PROTEIN ELECTROPHORESIS Reviewed and approved by AGUSTIN STERLING on 03/09/24 at 7:44 PM. Normal [facility] Comment on above: Performed By: #### 5 7021-8 #### RACHELLE Ramirez ([id number]) [facility]) [address] [place], [place] [address] URINE ELECTROPHORESIS COMMENT SEE COMMENT Normal [facility] Comment on above: Result Comment: [place] ed proteinuria. No monoclonal protein detected. Performed By: #### 5 7021-8 #### RACHELLE Ramirez ([id number]) [facility]) [address] [place] [address] 94489 No Panel Informationon 02-08 Sinus Rhythm -consider anterior infarct -old [facility]NORMAL [facility] No Panel InformationOrdered By: Martha Horton on 02-09-2024 [employer] Work Phone: Comprehensive metabolic 2000 panelon 02-01-2024 Albumin BCP dye [Mass/Vol] 3.6 g/dL Normal 3.4-5.0 [facility] Comment on above: Performed By: #### 2 4323-8 #### RACHELLE Ramirez ([id number]) [facility]) [address] [place] [address] 72445 ALP [Catalytic activity/Vol] 47 U/L Normal 33-136 [facility] Comment on above: Performed By: #### 2 4323-8 #### RACHELLE Ramirez ([id number]) [facility]) [address] [place] [address] ALT With P-5'-P [Catalytic activity/Vol] 24 U/L Normal 7-45 [facility] Comment on above: Result Comment: Arabella ents treated with Sulfasalazine may generate falsely decreased results for ALT. Performed By: #### 2 4323-8 #### RACHELLE Ramirez ([id number]) [facility]) [address] [place] [address] Anion gap [Moles/Vol] 22 mmol/L High 10-20 [facility] Comment on above: Performed By: #### 2 4323-8 #### RACHELLE Ramirez ([id number]) [facility]) [address] [place] [address] AST With P-5'-P [Catalytic activity/Vol] 13 U/L Normal 9-39 [facility] Comment on above: Performed By: #### 2 4323-8 #### RACHELLE Ramirez ([id number]) [facility]) [address] [place] [address] Bilirubin [Mass/Vol] 0.7 mg/dL Normal 0.0-1.2 [facility] Comment on above: Performed By: #### 2 4323-8 #### RACHELLE Ramirez ([id number]) [facility]) [address] [place] [address] Calcium [Mass/Vol] 9.4 mg/dL Normal 8.6-10.6 [facility] Comment on above: Performed By: #### 2 4323-8 #### RACHELLE Ramirez ([id number]) [facility]) [address] [place] [address] Chloride [Moles/Vol] 100 mmol/L Normal 98-107 [facility] Comment on above: Performed By: #### 2 4323-8 #### RACHELLE Ramirez ([id number]) [facility]) [address] [place] [address] CO2 [Moles/Vol] 21 mmol/L Normal 21-32 [facility] Comment on above: Performed By: #### 2 4323-8 #### RACHELLE Ramirez ([id number]) [facility]) [address] [place] [address] Creatinine [Mass/Vol] 0.95 mg/dL Normal 0.50-1.05 [facility] Comment on above: Performed By: #### 2 4323-8 #### RACHELLE Ramirez ([id number]) [facility]) [address] [place] [address] 86740 Glomerular filtration rate/1.73 sq M.predicted 61 mL/min/1.73m*2 Normal >60 [facility] Comment on above: Result Comment: Calc ulations of estimated GFR are performed using the 2020 CKD-EPI Study Refit equation without the race variable for the IDMS-Traceable creatinine methods. https://jasn.asnjournals.org/content/early//ASN.2020 274508 Performed By: #### 2 4323-8 #### RACHELLE Ramirez ([id number]) [facility]) [address] [place] [address] 09183 Glucose [Mass/Vol] 112 mg/dL High 74-99 [facility] Comment on above: Performed By: #### 2 4323-8 #### RACHELLE Ramirez ([id number]) [facility]) [address] [place] [address] Potassium [Moles/Vol] 4.9 mmol/L Normal 3.5-5.3 [facility] Comment on above: Performed By: #### 2 4323-8 #### RACHELLE Ramirez ([id number]) [facility]) [address] [place] [address] Protein [Mass/Vol] 5.8 g/dL Low 6.4-8.2 [facility] Comment on above: Performed By: #### 2 4323-8 #### RACHELLE Ramirez ([id number]) [facility]) [address] [place], [place] [id number] Sodium [Moles/Vol] 138 mmol/L Normal 136-145 [facility] Comment on above: Performed By: #### 2 4323-8 #### RACHELLE Ramirez ([id number]) [facility]) [address] [place] [address] 04482 Urea nitrogen [Mass/Vol] 15 mg/dL Normal 6-23 [facility] Comment on above: Performed By: #### 2 4323-8 #### RACHELLE Ramirez ([id number]) [facility] ([facility]) [address] [place], [place] [id number] ECG 12 lead - CLINIC PERFORM EDon 02-01-2024 Atrial fibrillation -Negative T-waves May be normal -consider acute process. ABNORMAL [employer]plus Natriuretic peptide B [Mass/ Vol]on 02-01-2024 Natriuretic peptide B (Bld) [Mass/Vol] 700 pg/mL High 0-99 [facility] Comment on above: Order Comment: <100 pg/mL - Heart failure unlikely 100-299 pg/mL - Intermediate probability of acute heart failure exacerbation. Correlate with clinical context and patient history. >=300 pg/mL - Heart Failure likely. Correlate with clinical context and patient history. Biotin interference may cause falsely decreased results. Patients taking a Biotin dose of up to 5 mg/day should refrain from taking Biotin for 24 hours before sample collection. Providers may contact their local laboratory for further information. Performed By: #### 3 0934-4 #### RACHELLE Ramirez ([id number]) [facility] ([facility]) [id number] [place], [place] [id number] CBC W Auto Differential pane l (Bld)on 01-27-2024 Basophils (Bld) [#/Vol] 0.05 x10*3/uL Normal 0.00-0.10 [facility] Comment on above: Performed By: #### 5 7021-8 #### RACHELLE Ramirez ([id number]) [facility] ([facility]) [address] [place] [address] 56519 Basophils/100 WBC (Bld) 0.4 % Normal 0.0-2.0 [facility] Comment on above: Performed By: #### 5 7021-8 #### RACHELLE OBRIEN L ([id number]) [facility] ([facility]) [address] [place] [address] 32527 Eosinophils (Bld) [#/Vol] 0.05 x10*3/uL Normal 0.00-0.40 [facility] Comment on above: Performed By: #### 5 7021-8 #### RACHELLE OBRIEN L ([id number]) [facility] ([facility]) [address] [place] [address] 55449 Eosinophils/100 WBC (Bld) 0.4 % Normal 0.0-6.0 [facility] Comment on above: Performed By: #### 5 7021-8 #### RACHELLE OBRIEN L ([id number]) [facility] ([facility]) [address] [place] [address] 24330 Erythrocyte distribution width (RBC) [Ratio] 14.8 % High 11.5-14.5 [facility] Comment on above: Performed By: #### 5 7021-8 #### RACHELLE OBRIEN L ([id number]) [facility] ([facility]) [address] [place] [address] 40882 Hematocrit (Bld) [Volume fraction] 32.9 % Low 36.0-46.0 [facility] Comment on above: Performed By: #### 5 7021-8 #### RACHELLE OBRIEN L ([id number]) [facility] ([facility]) [address] [place] [address] 73623 Hemoglobin (Bld) [Mass/Vol] 10.3 g/dL Low 12.0-16.0 [facility] Comment on above: Performed By: #### 5 7021-8 #### RACHELLE OBRIEN L ([id number]) [facility] ([facility]) [address] [place] [address] Immature granulocytes (Bld) [#/Vol] 0.17 x10*3/uL Normal 0.00-0.50 [facility] Comment on above: Performed By: #### 5 7021-8 #### RACHELLE Ramirez ([id number]) [facility] ([facility]) [address] [place] [address] Immature granulocytes/100 WBC (Bld) 1.3 % High 0.0-0.9 [facility] Comment on above: Result Comment: Yue ture Granulocyte Count (IG) includes promyelocytes, myelocytes and metamyelocytes but does not include bands. Percent differential counts (%) should be interpreted in the context of the absolute cell counts (cells/UL). Performed By: #### 5 7021-8 #### RACHELLE Ramirez ([id number]) [facility] ([facility]) [address] [place] [address] 11317 Lymphocytes (Bld) [#/Vol] 0.51 x10*3/uL Low 0.80-3.00 [facility] Comment on above: Performed By: #### 5 7021-8 #### RACHELLE Ramirez ([id number]) [facility] ([facility]) [address] [place] [address] 66272 Lymphocytes/100 WBC (Bld) 4.0 % Normal 13.0-44.0 [facility] Comment on above: Performed By: #### 5 7021-8 #### RACHELLE Ramirez ([id number]) [facility] ([facility]) [address] [place] [address] 39266 MCH (RBC) [Entitic mass] 30.9 pg Normal 26.0-34.0 [facility] Comment on above: Performed By: #### 5 7021-8 #### RACHELLE Ramirez ([id number]) [facility] ([facility]) [address] [place] [address] MCHC (RBC) [Mass/Vol] 31.3 g/dL Low 32.0-36.0 [facility] Comment on above: Performed By: #### 5 7021-8 #### RACHELLE Ramirez ([id number]) [facility] ([facility]) [address] [place] [address] 45860 MCV (RBC) [Entitic vol] 99 fL Normal 80-100 [facility] Comment on above: Performed By: #### 5 7021-8 #### RACHELLE OBRIEN L ([id number]) [facility] ([facility]) [address] [place] [address] 79584 Monocytes (Bld) [#/Vol] 0.98 x10*3/uL High 0.05-0.80 [facility] Comment on above: Performed By: #### 5 7021-8 #### RACHELLE Ramirez ([id number]) [facility] ([facility]) [address] [place] [address] 25931 Monocytes/100 WBC (Bld) 7.6 % Normal 2.0-10.0 [facility] Comment on above: Performed By: #### 5 7021-8 #### RACHELLE Ramirez ([id number]) [facility] ([facility]) [address] [place] [address] 64262 Neutrophils (Bld) [#/Vol] 11.07 x10*3/uL High 1.60-5.50 [facility] Comment on above: Result Comment: Perc ent differential counts (%) should be interpreted in the context of the absolute cell counts (cells/uL). Performed By: #### 5 7021-8 #### RACHELLE Ramirez ([id number]) [facility] ([facility]) [address] [place] [address] 08859 Neutrophils/100 WBC (Bld) 86.3 % Normal 40.0-80.0 [facility] Comment on above: Performed By: #### 5 7021-8 #### RACHELLE TRUONGMOTZNICKOLAS L ([id number]) [facility] ([facility]) [address] [place] [address] 71476 Nucleated RBC/100 WBC (Bld) [Ratio] 0.0 /100 WBCs Normal 0.0-0.0 [facility] Comment on above: Performed By: #### 5 7021-8 #### RACHELLE Ramirez ([id number]) [facility] ([facility]) [address] [place] [address] 92700 Platelets (Bld) [#/Vol] 334 x10*3/uL Normal 150-450 [facility] Comment on above: Performed By: #### 5 7021-8 #### RACHELLE Ramirez ([id number]) [facility] ([facility]) [address] [place] [address] 30862 RBC (Bld) [#/Vol] 3.33 x10*6/uL Low 4.00-5.20 [facility] Comment on above: Performed By: #### 5 7021-8 #### RACHELLE Ramirez ([id number]) [facility] ([facility]) [address] [place] [address] 41909 WBC (Bld) [#/Vol] 12.8 x10*3/uL High 4.4-11.3 [facility] Comment on above: Performed By: #### 5 7021-8 #### RACHELLE Ramirez ([id number]) [facility] ([facility]) [address] [place] [address] 41197 Proteinon 01-27-2024 Protein Qn (U) 299 mg/dL High 5-24 [facility] Comment on above: Performed By: #### 2 7298-9 #### RACHELLE Ramirez ([id number]) [facility] ([facility]) [address] [place] [address] 89443 Protein Qn (U)on 01-27-2024 Creatinine (U) [Mass/Vol] 80.9 mg/dL Normal 20.0-320.0 [facility] Comment on above: Performed By: #### 2 7298-9 #### RACHELLE Ramirez ([id number]) [facility] ([facility]) [address] [place] [address] 79934 Protein/Creatinine (U) [Mass ratio] 3.70 mg/mg Creat High 0.00-0.17 [facility] Comment on above: Performed By: #### 2 7298-9 #### RACHELLE Ramirez ([id number]) [facility] ([facility]) [address] [place] [address] 51514 Renal function 2000 panelon 01-27-2024 Albumin BCP dye [Mass/Vol] 3.6 g/dL Normal 3.4-5.0 [facility] Comment on above: Performed By: #### 2 4362-6 #### RACHELLE Ramirez ([id number]) [facility] ([facility]) [address] [place] [address] 05890 Anion gap [Moles/Vol] 17 mmol/L Normal 10-20 [facility] Comment on above: Performed By: #### 2 4362-6 #### RACHELLE Ramirez ([id number]) [facility] ([facility]) [address] [place] [address] 49187 Calcium [Mass/Vol] 9.0 mg/dL Normal 8.6-10.6 [facility] Comment on above: Performed By: #### 2 4362-6 #### RACHELLE Ramirez ([id number]) [facility] ([facility]) [address] [place] [address] 29313 Chloride [Moles/Vol] 98 mmol/L Normal 98-107 [facility] Comment on above: Performed By: #### 2 4362-6 #### RACHELLE Ramirez ([id number]) [facility] ([facility]) [address] [place] [address] 47614 CO2 [Moles/Vol] 23 mmol/L Normal 21-32 [facility] Comment on above: Performed By: #### 2 4362-6 #### RACHELLE Ramirez ([id number]) [facility] ([facility]) [address] [place] [address] 47892 Creatinine [Mass/Vol] 0.89 mg/dL Normal 0.50-1.05 [facility] Comment on above: Performed By: #### 2 4362-6 #### RACHELLE Ramirez ([id number]) [facility] ([facility]) [address] [place] [address] Glomerular filtration rate/1.73 sq M.predicted 66 mL/min/1.73m*2 Normal >60 [facility] Comment on above: Result Comment: Calc ulations of estimated GFR are performed using the 2020 CKD-EPI Study Refit equation without the race variable for the IDMS-Traceable creatinine methods. https://jasn.asnjournals.org/content/early//ASN.2020 275744 Performed By: #### 2 4362-6 #### RACHELLE Ramirez ([id number]) [facility] ([facility]) [address] [place] [address] 15121 Glucose [Mass/Vol] 179 mg/dL High 74-99 [facility] Comment on above: Performed By: #### 2 4362-6 #### RACHELLE Ramirez ([id number]) [facility] ([facility]) [address] [place] [address] Phosphate [Mass/Vol] 4.2 mg/dL Normal 2.5-4.9 [facility] Comment on above: Result Comment: The performance characteristics of phosphorus testing in heparinized plasma have been validated by the individual laboratory site where testing is performed. Testing on heparinized plasma is not approved by the FDA; however, such approval is not necessary. Performed By: #### 2 4362-6 #### RACHELLE Ramirez ([id number]) [facility] ([facility]) [address] [place] [address] Potassium [Moles/Vol] 4.8 mmol/L Normal 3.5-5.3 [facility] Comment on above: Performed By: #### 2 4362-6 #### RACHELLE Ramirez ([id number]) [facility] ([facility]) [address] [place] [address] Sodium [Moles/Vol] 133 mmol/L Low 136-145 [facility] Comment on above: Performed By: #### 2 4362-6 #### RACHELLE Ramirez ([id number]) [facility] ([facility]) [address] [place] [address] Urea nitrogen [Mass/Vol] 19 mg/dL Normal 6-23 [facility] Comment on above: Performed By: #### 2 4362-6 #### RACHELLE Ramirez ([id number]) [facility]) [address] [place] [address] CBC W Auto Differential pane l (Bld)on 01-22-2024 Basophils (Bld) [#/Vol] 0.0 10*3/uL 0.0 - 0.2 10*3/uL [facility] Basophils/100 WBC (Bld) 0.5 % 0.0 - 2.0 % [facility] Eosinophils (Bld) [#/Vol] 0.2 10*3/uL 0.0 - 0.5 10*3/uL [facility] Eosinophils/100 WBC (Bld) 2.3 % 0.0 - 6.0 % [facility] Erythrocyte distribution width (RBC) [Ratio] 15.4 % High 11.5 - 15.0 % [facility] Hematocrit (Bld) [Volume fraction] 29.8 % Low 35.0 - 47.0 % [facility] Hemoglobin (Bld) [Mass/Vol] 9.6 g/dL Low 11.7 - 16.0 g/dL [facility] Immature granulocytes (Bld) [#/Vol] 0.1 10*3/uL High NINF - 0.1 10*3/uL [facility] Immature granulocytes/100 WBC (Bld) 1.1 % 0.0 - 2.0 % [facility] Interpretation and review of laboratory results Abnormal [facility] Lymphocytes (Bld) [#/Vol] 0.9 10*3/uL Low 1.0 - 4.3 10*3/uL [facility] Lymphocytes/100 WBC (Bld) 10.7 % Low 15.0 - 45.0 % [facility] MCH (RBC) [Entitic mass] 30.7 pg 26.0 - 34.0 pg [facility] MCHC (RBC) [Mass/Vol] 32.2 % 30.5 - 36.0 % [facility] MCV (RBC) [Entitic vol] 95.2 fL 77.0 - 99.0 fL [facility] Monocytes (Bld) [#/Vol] 0.8 10*3/uL 0.0 - 0.9 10*3/uL [facility] Monocytes/100 WBC (Bld) 9.2 % 5.0 - 13.0 % [facility] Neutrophils (Bld) [#/Vol] 6.5 10*3/uL 1.8 - 7.5 10*3/uL [facility] Neutrophils/100 WBC (Bld) 76.2 % 38.0 - 82.0 % [facility] Nucleated RBC/100 WBC (Bld) [Ratio] 0.0 % [facility] Platelet mean volume (Bld) [Entitic vol] 9.9 fL 9.0 - 12.7 fL [facility] Platelets (Bld) [#/Vol] 209 10*3/uL 140 - 440 10*3/uL [facility] RBC (Bld) [#/Vol] 3.13 10*6/uL Low 3.80 - 5.2 0 10*6/uL [facility] WBC (Bld) [#/Vol] 8.6 10*3/uL 3.6 - 10.7 10*3/uL [facility] Comprehensive metabolic 1998 panelon 01-22-2024 Albumin [Mass/Vol] 3.4 g/dL Low 3.5 - 5.0 g/dL [facility] ALP [Catalytic activity/Vol] 85 U/L 38 - 126 U/L [facility] ALT [Catalytic activity/Vol] 139 U/L High 0 - 34 U/L [facility] Anion gap [Moles/Vol] 3 mmol/L 3 - 13 mmol/L [facility] AST [Catalytic activity/Vol] 90 U/L High 15 - 46 U/L [facility] Bilirubin [Mass/Vol] 1.4 mg/dL High 0.2 - 1 .3 mg/dL [facility] Calcium [Mass/Vol] 7.6 mg/dL Low 8.4 - 10. 4 mg/dL [facility] Chloride [Moles/Vol] 102 mmol/L 98 - 10 7 mmol/L [facility] CO2 [Moles/Vol] 24 mmol/L 22 - 30 mmol/L [facility] Creatinine [Mass/Vol] 0.87 mg/dL 0.52 - 1.04 mg/dL [facility] GFR/1.73 sq M.predicted MDRD (S/P/Bld) [Vol rate/Area] 68.3 mL/min/{1.73_m2} - PINF [facility] Comment on above: Calculation based on the Chronic Kidney Disease Epidemiology Collaboration (CKD-EPI) equation refit without adjustment for race Glucose [Mass/Vol] 102 mg/dL High 70 - 100 mg/dL [facility] Potassium [Moles/Vol] 4.0 mmol/L 3.5 - 5.1 mmol/L [facility] Protein [Mass/Vol] 5.9 g/dL Low 6.3 - 8.2 g/dL [facility] Sodium [Moles/Vol] 129 mmol/L Low 135 - 145 mmol/L [facility] Urea nitrogen [Mass/Vol] 17 mg/dL 7 - 17 mg/dL [facility] Laboratory - Chemistry and C hemistry - challengeon 01-22-2024 Glucose [Mass/Vol] 240 mg/dL High 70 - 100 mg/dL [facility] Glucose [Mass/Vol] 166 mg/dL High 70 - 100 mg/dL [facility] Magnesium [Mass/Vol] 1.9 mg/dL 1.6 - 2 .3 mg/dL [facility] Magnesium [Mass/Vol]on 01-21 Interpretation and review of laboratory results Normal [facility] PhotoShelter No Panel Informationon 01-21 Interpretation and review of laboratory results Abnormal [facility] Performed by: [facility], [address] [place], [place] [id number] CLIA ID: [id number] [facility] Sinus rhythm Atrial premature complexes Anterior infarct, age indeterminate Electronically Signed On 01-22-2024 08:23:31 EDT by Baljeet Amaral DO - 01/22/2024 IMPRESSION: Sinus rhythm Atrial premature complexes Anterior infarct, age indeterminate Electronically Signed On 01-22-2024 08:23:31 EDT by Baljeet Crews [facility] Interpretation and review of laboratory results Abnormal [facility] Performed by: [facility], [address] [place] [id number] CLIA ID: [id number] [facility] Interpretation and review of laboratory results Abnormal [facility] Health Radiology Study observation (narrative) [facility] Radiology Study observation (narrative) [facility] No Panel InformationOrdered By: Baljeet Crews on 01-22-2024 P [place] 0 degrees [facility] Health Work Phone: [phone] DE Interval 180 ms [facility] Health Work Phone: [phone] QRS [place] 66 degrees [facility] Health Work Phone: QRSD Interval 83 ms [facility] h Work Phone: [phone] QT Interval 457 ms [facility] Health Work Phone: [phone] QTC Interval 493 ms [facility] Health Work Phone: [phone] T Wave [place] 79 degrees [facility] Health Work Phone: [facility] Health Work Phone: Phosphate [Moles/Vol]on Phosphate [Mass/Vol] 2.4 mg/dL Low 2.5 - 4 .5 mg/dL [facility] US Heart Transthoracicon Ao Root Index 1.54 cm/m2 [facility] h Aortic Root 2.8 cm [facility] Aortic Sinus Valsalva 2.8 cm Sum [facility] Aortic Sinus Valsalva Index 1.54 cm/m2 [facility] AR Max Velocity PISA 3.4 m/s [facility] AR PHT 321.0 ms [facility] Ascending Aorta 2.9 cm [facility] Ascending Aorta Index 1.59 cm/m2 [facility] AV Area by Peak Velocity 1.7 cm2 [facility] AV Area by VTI 1.6 cm2 [facility] Heal th AV Mean Gradient 7 mmHg [facility] alth AV Mean Velocity 1.3 m/s [facility] He alth AV Peak Gradient 12 mmHg [facility] He alth AV Peak Velocity 1.7 m/s [facility] He alth AV Velocity Ratio 0.76 [facility] H ealth AV VTI 43.9 cm [facility] Health KAMRYN/BSA Peak Velocity 0.9 cm2/m2 [facility] KAMRYN/BSA VTI 0.9 cm2/m2 [facility] Health E/E' Lateral 14.38 [facility] E/E' Ratio (Averaged) 15.[address] [facility] E/E' Septal 16.43 [facility] EF BP 57 % 55 - 100 % [facility] EF Physician 48 % [facility] Est. RA Pressure 8 mmHg [facility] alth Fractional Shortening 2D 15 % 28 - 44 % [facility] Global Longitudinal Strain -14.7 % [facility] Interpretation and review of laboratory results Abnormal [facility] IVC Diameter 2.1 cm [facility] IVSd 0.9 cm 0.6 - 0.9 cm [facility] [place] Diameter 4.3 cm [facility] LA Size Index 2.36 cm/m2 [facility] [place] Volume 2C 80 mL Abnormal 22 - 52 mL [facility] LA Volume 4C 80 mL Abnormal 22 - 52 mL [facility] LA Volume A/L 84 mL [facility] [place] Volume BP 79 mL Abnormal 22 - 52 mL [facility] LA Volume Index 2C 44 mL/m2 Abnormal 16 - 34 mL/m2 [facility] LA Volume Index 4C 44 mL/m2 Abnormal 16 - 34 mL/m2 [facility] LA Volume Index A/L 46 mL/m2 16 - 34 mL/m2 [facility] LA Volume Index BP 43 ml/m2 Abnormal 16 - 34 ml/m2 [facility] LA/AO Root Ratio 1.54 [facility] LV E' Lateral Velocity 8 cm/s [facility] LV E' Septal Velocity 7 cm/s [facility] LV EDV A2C 76 mL [facility] LV EDV A4C 65 mL [facility] LV EDV BP 74 mL 56 - 104 mL [facility] LV EDV Index A2C 42 mL/m2 [facility] alth LV EDV Index A4C 36 mL/m2 [facility] alth LV EDV Index BP 41 mL/m2 [facility] lt LV Ejection Fraction A2C 59 % [facility] LV Ejection Fraction A4C 54 % [facility] LV ESV A2C 31 mL [facility] LV ESV A4C 30 mL [facility] LV ESV BP 32 mL 19 - 49 mL [facility] LV ESV Index A2C 17 mL/m2 [facility] alth LV ESV Index A4C 16 mL/m2 [facility] alth LV ESV Index BP 18 mL/m2 [facility] lth LV Mass 2D 137.7 g 67 - 162 g [facility] LV Mass 2D Index 75.7 g/m2 43 - 95 g/m2 [facility] LV RWT Ratio 0.39 [facility] LVIDd 4.6 cm 3.9 - 5.3 cm [facility] LVIDd Index 2.53 cm/m2 [facility] LVIDs 3.9 cm [facility] LVIDs Index 2.14 cm/m2 [facility] LVOT Area 2.3 cm2 [facility] LVOT Cardiac Output 4.8 liter/minute [facility] LVOT Diameter 1.7 cm [facility] LVOT Mean Gradient 3 mmHg [facility] LVOT Peak Gradient 7 mmHg [facility] LVOT Peak Velocity 1.3 m/s [facility] LVOT Stroke Volume Index 37.5 mL/m2 [facility] LVOT SV 68.3 ml [facility] LVOT VTI 30.1 cm [facility] LVOT:AV VTI Index 0.69 [facility] ealt LVPWd 0.9 cm 0.6 - 0.9 cm [facility] MR VTI 191.5 cm [facility] MV A Velocity 0.57 m/s [facility] MV E Velocity 1.15 m/s [facility] MV E Wave Deceleration Time 182.1 ms [facility] MV E/A 2.02 [facility] MV Nyquist Velocity 36 cm/s [facility] MV Regurg Velocity PISA 6.0 m/s [facility] RA Area 4C 45.1 mL [facility] RV Basal Dimension 2.8 cm [facility] RV Free Wall Peak S' 8 cm/s [facility] RV Mid Dimension 1.4 cm [facility] alth RVSP 46 mmHg [facility] Sinotubular Junction 2.1 cm [facility] TAPSE 1.7 cm 1.7 cm [facility] TR Max Velocity 3.08 m/s [facility] lt TR Peak Gradient 38 mmHg [facility] alth Left Ventricle: Left ventricle size is normal. Normal wall thickness. Normal left ventricular systolic function. EF by visual approximation is 48%. Global longitudinal strain is reduced with a value of -14.7%. Normal wall motion. Grade III diastolic dysfunction with increased LAP. Right Ventricle: Right ventricle size is normal. Low normal systolic function. RV Peak S' is 8 cm/s. Aortic Valve: Trileaflet. Cusp sclerosis. Mild (1+) regurgitation. Aortic slcerosis. AV mean gradient is 7 mmHg. AV peak gradient is 12 mmHg. AV peak velocity is 1.7 m/s. Mitral Valve: Moderately thickened leaflets. Moderately calcified leaflets. Mild annular calcification. Moderate (2+) regurgitation with a posterior directed jet. No stenosis noted. Tricuspid Valve: Valve structure is normal. Mild (1+) regurgitation. Mild to moderately elevated RVSP. RVSP is 46 mmHg. Left Atrium: Left atrium is moderately dilated. Right Atrium: Right atrium size is normal. Aorta: Normal sized sinuses of Valsalva and ascending aorta. Pericardium: No pericardial effusion. IVC/SVC: IVC diameter is dilated and decreases greater than 50% during inspiration; therefore the estimated right atrial pressure is intermediate (~8 mmHg). Left Ventricle Left ventricle size is normal. Normal wall thickness. Normal left ventricular systolic function. EF by visual approximation is 48%. Global longitudinal strain is reduced with a value of -14.7%. Normal wall motion. Grade III diastolic dysfunction with increased LAP. Right Ventricle Right ventricle size is normal. Low normal systolic function. RV Peak S' is 8 cm/s. Left Atrium Left atrium is moderately dilated. Right Atrium Right atrium size is normal. IVC/SVC IVC diameter is dilated and decreases greater than 50% during inspiration; therefore the estimated right atrial pressure is intermediate (~8 mmHg). Mitral Valve Moderately thickened leaflets. Moderately calcified leaflets. Mild annular calcification. Moderate (2+) regurgitation with a posterior directed jet. No stenosis noted. Tricuspid Valve Valve structure is normal. Mild (1+) regurgitation. Mild to moderately elevated RVSP. RVSP is 46 mmHg. Aortic Valve Trileaflet. Cusp sclerosis. Mild (1+) regurgitation. Aortic slcerosis. AV mean gradient is 7 mmHg. AV peak gradient is 12 mmHg. AV peak velocity is 1.7 m/s. Pulmonic Valve The pulmonic valve visualization is suboptimal but appears to be functioning normally. Trace regurgitation. Ascending Aorta Normal sized sinuses of Valsalva and ascending aorta. Pericardium No pericardial effusion. Septum No interatrial shunt visualized on color Doppler. Pulmonary Artery Pulmonary artery was not well visualized. Study Details Image quality: fair. Additional technique includes myocardial strain. Heart rate: 75 bpm. Blood pressure: 158/65 mmHg. No contrast was given. Wall Scoring Baseline Score Index: 1.00 The left ventricular wall motion is normal. [facility] Vital signsOrdered By: Woo Crews on 01-22-2024 Heart rate 72 /min bpm [facility] [employer] Work Phone: CBC W Auto Differential pane l (Bld)Ordered By: Ginger Spencer on 01-21-2024 Erythrocyte distribution width (RBC) [Ratio] 15.6 % High 11.5 - 15.0 % [facility] Hematocrit (Bld) [Volume fraction] 26.7 % Low 35.0 - 47.0 % [facility] Hemoglobin (Bld) [Mass/Vol] 9.0 g/dL Low 11.7 - 16.0 g/dL [facility] Interpretation and review of laboratory results Abnormal [facility] MCH (RBC) [Entitic mass] 31.8 pg 26.0 - 34.0 pg [facility] MCHC (RBC) [Mass/Vol] 33.7 % 30.5 - 36.0 % [facility] MCV (RBC) [Entitic vol] 94.3 fL 77.0 - 99.0 fL [facility] Platelet mean volume (Bld) [Entitic vol] 9.4 fL 9.0 - 12.7 fL [facility] Platelets (Bld) [#/Vol] 188 10*3/uL 140 - 440 10*3/uL [facility] RBC (Bld) [#/Vol] 2.83 10*6/uL Low 3.80 - 5.2 0 10*6/uL [facility] WBC (Bld) [#/Vol] 8.1 10*3/uL 3.6 - 10.7 10*3/uL [facility] CBC W Auto Differential pane l (Bld)on 01-21-2024 Basophils (Bld) [#/Vol] 0.0 10*3/uL 0.0 - 0.2 10*3/uL [facility] Health Basophils/100 WBC (Bld) 0.4 % 0.0 - 2.0 % [facility] Eosinophils (Bld) [#/Vol] 0.2 10*3/uL 0.0 - 0.5 10*3/uL [facility] Eosinophils/100 WBC (Bld) 1.7 % 0.0 - 6.0 % [facility] Erythrocyte distribution width (RBC) [Ratio] 15.7 % High 11.5 - 15.0 % [facility] Hematocrit (Bld) [Volume fraction] 29.5 % Low 35.0 - 47.0 % [facility] [employer] Hemoglobin (Bld) [Mass/Vol] 9.8 g/dL Low 11.7 - 16.0 g/dL [facility] [employer] Immature granulocytes (Bld) [#/Vol] 0.1 10*3/uL High NINF - 0.1 10*3/uL [facility] [employer] Immature granulocytes/100 WBC (Bld) 1.0 % 0.0 - 2.0 % [facility] [employer] Interpretation and review of laboratory results Abnormal [facility] [employer] Lymphocytes (Bld) [#/Vol] 0.7 10*3/uL Low 1.0 - 4.3 10*3/uL [facility] [employer] Lymphocytes/100 WBC (Bld) 7.6 % Low 15.0 - 45.0 % [facility] [employer] MCH (RBC) [Entitic mass] 31.2 pg 26.0 - 34.0 pg [facility] [employer] MCHC (RBC) [Mass/Vol] 33.2 % 30.5 - 36.0 % [facility] [employer] MCV (RBC) [Entitic vol] 93.9 fL 77.0 - 99.0 fL [facility] [employer] Monocytes (Bld) [#/Vol] 0.8 10*3/uL 0.0 - 0.9 10*3/uL [facility] [employer] Monocytes/100 WBC (Bld) 8.7 % 5.0 - 13.0 % [facility] [employer] Neutrophils (Bld) [#/Vol] 7.5 10*3/uL 1.8 - 7.5 10*3/uL [facility] [employer] Neutrophils/100 WBC (Bld) 80.6 % 38.0 - 82.0 % [facility] [employer] Nucleated RBC/100 WBC (Bld) [Ratio] 0.0 % [facility] [employer] Platelet mean volume (Bld) [Entitic vol] 9.6 fL 9.0 - 12.7 fL [facility] [employer] Platelets (Bld) [#/Vol] 219 10*3/uL 140 - 440 10*3/uL [facility] [employer] RBC (Bld) [#/Vol] 3.14 10*6/uL Low 3.80 - 5.2 0 10*6/uL [facility] [employer] WBC (Bld) [#/Vol] 9.3 10*3/uL 3.6 - 10.7 10*3/uL [facility] CT Neck W contrast Guido 06-0 1. Possible mild left submandibular sialadenitis. 2. No neck mass or cervical lymphadenopathy. 3. Moderate volume right pleural effusion. 4. Severe atherosclerotic disease of the left carotid artery with probable high-grade stenosis of the left ICA. Report Dictated on Electronically Signed By: Nicolas Marie MD Electronically Signed Date/Time: 01/21/2024 1:53 PM EDT [facility] [employer] Patient Name: ROLANDO PETERS : 1945 Exam Date/Time: 01/21/2024 11:35 Procedure: CT SOFT TISSUE NECK W IV CONTRAST Ordering Provider: GARCIA EITAN Reason For Exam: Neck mass, nonpulsatile EXAMINATION: CT SOFT TISSUE NECK W IV CONTRAST CLINICAL HISTORY: Neck mass, nonpulsatile COMPARISON: None TECHNIQUE: Thin axial images were obtained through the neck with intravenous contrast. 2D sagittal and coronal reconstructions were obtained from the axial data. Dose reduction was employed with automated exposure control. FINDINGS: Aerodigestive tract: The nasal cavities, naso-oropharynx, pharyngeal mucosal space, laryngeal structures and imaged infraglottic trachea are within normal limits. Lymph nodes: No pathologically enlarged, necrotic, or otherwise abnormal lymph nodes. Major salivary glands: Mild asymmetric fullness and mild hyperenhancement of the left submandibular gland. No sialolithiasis or sialectasis. Parotid glands appear symmetric. Thyroid gland: Normal. Carotid space: Severe diffuse atherosclerotic disease of the left carotid arteries with probable high-grade stenosis of the left proximal ICA, and multifocal stenosis of the left common carotid artery. Mild stenosis of the right ICA. Paranasal sinuses, middle ears, mastoids: Clear. Brain and orbits: Imaged portions within normal limits. Bones: No fracture or aggressive osseous lesion. Moderate multilevel degenerative changes in the spine. Lungs: Moderate volume right pleural effusion. [facility] [employer] Nicolas Marie M D - 01/21/2024 Patient Name: ROLANDO PETERS : 1945 Exam Date/Time: 01/21/2024 11:35 Procedure: CT SOFT TISSUE NECK W IV CONTRAST Ordering Provider: GARCIA EITAN Reason For Exam: Neck mass, nonpulsatile EXAMINATION: CT SOFT TISSUE NECK W IV CONTRAST CLINICAL HISTORY: Neck mass, nonpulsatile COMPARISON: None TECHNIQUE: Thin axial images were obtained through the neck with intravenous contrast. 2D sagittal and coronal reconstructions were obtained from the axial data. Dose reduction was employed with automated exposure control. FINDINGS: Aerodigestive tract: The nasal cavities, naso-oropharynx, pharyngeal mucosal space, laryngeal structures and imaged infraglottic trachea are within normal limits. Lymph nodes: No pathologically enlarged, necrotic, or otherwise abnormal lymph nodes. Major salivary glands: Mild asymmetric fullness and mild hyperenhancement of the left submandibular gland. No sialolithiasis or sialectasis. Parotid glands appear symmetric. Thyroid gland: Normal. Carotid space: Severe diffuse atherosclerotic disease of the left carotid arteries with probable high-grade stenosis of the left proximal ICA, and multifocal stenosis of the left common carotid artery. Mild stenosis of the right ICA. Paranasal sinuses, middle ears, mastoids: Clear. Brain and orbits: Imaged portions within normal limits. Bones: No fracture or aggressive osseous lesion. Moderate multilevel degenerative changes in the spine. Lungs: Moderate volume right pleural effusion. IMPRESSION: 1. Possible mild left submandibular sialadenitis. 2. No neck mass or cervical lymphadenopathy. 3. Moderate volume right pleural effusion. 4. Severe atherosclerotic disease of the left carotid artery with probable high-grade stenosis of the left ICA. Report Dictated on Electronically Signed By: Nicolas Marie MD Electronically Signed Date/Time: 01/21/2024 1:53 PM EDT [facility] Radiology Study observation (narrative) [facility] CT Neck W contrast IVOrdered By: Nicolas Marie on 01-21-2024 [facility] [employer] Work Phone: Comprehensive metabolic 1998 panelon 01-21-2024 Albumin [Mass/Vol] 3.1 g/dL Low 3.5 - 5.0 g/dL [facility] [employer] ALP [Catalytic activity/Vol] 87 U/L 38 - 126 U/L [facility] [employer] ALT [Catalytic activity/Vol] 103 U/L High 0 - 34 U/L [facility] Anion gap [Moles/Vol] 7 mmol/L 3 - 13 mmol/L [facility] AST [Catalytic activity/Vol] 68 U/L High 15 - 46 U/L [facility] Bilirubin [Mass/Vol] 1.6 mg/dL High 0.2 - 1 .3 mg/dL [facility] Calcium [Mass/Vol] 7.7 mg/dL Low 8.4 - 10. 4 mg/dL [facility] Chloride [Moles/Vol] 102 mmol/L 98 - 10 7 mmol/L [facility] CO2 [Moles/Vol] 24 mmol/L 22 - 30 mmol/L [facility] Creatinine [Mass/Vol] 0.85 mg/dL 0.52 - 1.04 mg/dL [facility] GFR/1.73 sq M.predicted MDRD (S/P/Bld) [Vol rate/Area] 70.2 mL/min/{1.73_m2} - PINF [facility] Comment on above: Calculation based on the Chronic Kidney Disease Epidemiology Collaboration (CKD-EPI) equation refit without adjustment for race Glucose [Mass/Vol] 128 mg/dL High 70 - 100 mg/dL [facility] Interpretation and review of laboratory results Abnormal [facility] Potassium [Moles/Vol] 3.8 mmol/L 3.5 - 5.1 mmol/L [facility] Protein [Mass/Vol] 5.6 g/dL Low 6.3 - 8.2 g/dL [facility] Sodium [Moles/Vol] 133 mmol/L Low 135 - 145 mmol/L [facility] Urea nitrogen [Mass/Vol] 19 mg/dL High 7 - 17 mg/dL [facility] Laboratory - Chemistry and C hemistry - challengeon 01-21-2024 Glucose [Mass/Vol] 157 mg/dL High 70 - 100 mg/dL [facility] Glucose [Mass/Vol] 125 mg/dL High 70 - 100 mg/dL [facility] Glucose [Mass/Vol] 223 mg/dL High 70 - 100 mg/dL [facility] Glucose [Mass/Vol] 285 mg/dL High 70 - 100 mg/dL [facility] Magnesium [Mass/Vol] 1.9 mg/dL 1.6 - 2 .3 mg/dL [facility] No Panel Informationon 01-20 Interpretation and review of laboratory results Abnormal [facility] Performed by: [facility], [address] [place] [id number] CLIA ID: [id number] [facility] Interpretation and review of laboratory results Abnormal [facility] Performed by: [facility], [address] [place] [address], [facility] [id number] CLIA ID: [id number] [facility] Interpretation and review of laboratory results Abnormal [facility] Performed by: [facility], [address] [place] [address], [facility] [id number] CLIA ID: [id number] [facility] Interpretation and review of laboratory results Abnormal [facility] Performed by: [facility], [address] [place] [address], [facility] [id number] CLIA ID: [id number] [facility] Atrial fibrillation Anteroseptal infarct, age indeterminate Electronically Signed On 01-21-2024 10:12:07 EDT by Siddharth Hernandez MD - 01/21/2024 IMPRESSION: Atrial fibrillation Anteroseptal infarct, age indeterminate Electronically Signed On 01-21-2024 10:12:07 EDT by Siddharth Smith [facility] P [place] 61 degrees [facility] DE Interval 187 ms [facility] QRS [place] 53 degrees [facility] QRSD Interval 70 ms [facility] QT Interval 326 ms [facility] QTC Interval 440 ms [facility] T Wave [place] 203 degrees [facility] Sinus tachycardia Low voltage, extremity leads Nonspecific T abnrm, anterolateral leads Electronically Signed On 01-21-2024 09:56:59 EDT by Siddharth Hernandez MD - 01/21/2024 IMPRESSION: Sinus tachycardia Low voltage, extremity leads Nonspecific T abnrm, anterolateral leads Electronically Signed On 01-21-2024 09:56:59 EDT by Siddharth Smith [facility] P [place] 59 degrees [facility] DE Interval 163 ms [facility] QRS [place] 45 degrees [facility] QRSD Interval 75 ms [facility] QT Interval 350 ms [facility] QTC Interval 469 ms [facility] T Wave [place] 226 degrees [facility] Sinus tachycardia wi th irregular rate Frequent PACs Probable anterior infarct, age indeterminate Electronically Signed On 01-21-2024 09:43:44 EDT by Siddharth Smith CV Siddharth Baker MD - 01/21/2024 IMPRESSION: Sinus tachycardia with irregular rate Frequent PACs Probable anterior infarct, age indeterminate Electronically Signed On 01-21-2024 09:43:44 EDT by Siddharthclaudia Smith [facility] Interpretation and review of laboratory results Normal [facility] Radiology Study observation (narrative) [facility] Radiology Study observation (narrative) [facility] Radiology Study observation (narrative) [facility] Radiology Study observation (narrative) [facility] No Panel InformationOrdered By: Siddharth Smith on 01-21-2024 P [place] 0 degrees [facility] [employer] Work Phone: DE Interval 0 ms [facility] [employer] Work Phone: QRS [place] 73 degrees [facility] [employer] Work Phone: QRSD Interval 63 ms [facility] [employer] Work Phone: QT Interval 343 ms [facility] [employer] Work Phone: QTC Interval 486 ms [facility] [employer] Work Phone: T Wave [place] 244 degrees [facility] [employer] Work Phone: [facility] [employer] Work Phone: Phosphate [Moles/Vol]on Phosphate [Mass/Vol] 2.8 mg/dL 2.5 - 4 .5 mg/dL [facility] [employer] Vital signsOrdered By: Siddharth Smith on 01-21-2024 Heart rate 120 /min bpm [facility] [employer] Work Phone: Vital signson 01-21-2024 Heart rate 109 /min bpm [facility] [employer] Heart rate 113 /min bpm [facility] [employer] CBC W Auto Differential pane l (Bld)on 01-20-2024 Basophils (Bld) [#/Vol] 0.1 10*3/uL 0.0 - 0.2 10*3/uL [facility] Basophils/100 WBC (Bld) 0.4 % 0.0 - 2.0 % [facility] Eosinophils (Bld) [#/Vol] 0.0 10*3/uL 0.0 - 0.5 10*3/uL [facility] Eosinophils/100 WBC (Bld) 0.2 % 0.0 - 6.0 % [facility] Erythrocyte distribution width (RBC) [Ratio] 15.1 % High 11.5 - 15.0 % [facility] Hematocrit (Bld) [Volume fraction] 34.0 % Low 35.0 - 47.0 % [facility] Hemoglobin (Bld) [Mass/Vol] 11.3 g/dL Low 11.7 - 16.0 g/dL [facility] Immature granulocytes (Bld) [#/Vol] 0.1 10*3/uL High NINF - 0.1 10*3/uL [facility] Immature granulocytes/100 WBC (Bld) 1.1 % 0.0 - 2.0 % [facility] Interpretation and review of laboratory results Abnormal [facility] Lymphocytes (Bld) [#/Vol] 0.7 10*3/uL Low 1.0 - 4.3 10*3/uL [facility] Lymphocytes/100 WBC (Bld) 5.1 % Low 15.0 - 45.0 % [facility] MCH (RBC) [Entitic mass] 30.6 pg 26.0 - 34.0 pg [facility] MCHC (RBC) [Mass/Vol] 33.2 % 30.5 - 36.0 % [facility] MCV (RBC) [Entitic vol] 92.1 fL 77.0 - 99.0 fL [facility] Monocytes (Bld) [#/Vol] 1.0 10*3/uL High 0.0 - 0.9 10*3/uL [facility] Monocytes/100 WBC (Bld) 8.0 % 5.0 - 13.0 % [facility] Neutrophils (Bld) [#/Vol] 10.9 10*3/uL High 1.8 - 7.5 10*3/uL [facility] Neutrophils/100 WBC (Bld) 85.2 % High 38.0 - 82.0 % [facility] Nucleated RBC/100 WBC (Bld) [Ratio] 0.0 % [facility] Platelet mean volume (Bld) [Entitic vol] 10.1 fL 9.0 - 12.7 fL [facility] Platelets (Bld) [#/Vol] 224 10*3/uL 140 - 440 10*3/uL [facility] RBC (Bld) [#/Vol] 3.69 10*6/uL Low 3.80 - 5.2 0 10*6/uL [facility] WBC (Bld) [#/Vol] 12.8 10*3/uL High 3.6 - 10.7 10*3/uL [facility] Comprehensive metabolic 1998 panelon 01-20-2024 Albumin [Mass/Vol] 3.7 g/dL 3.5 - 5.0 g/dL [facility] ALP [Catalytic activity/Vol] 117 U/L 38 - 126 U/L [facility] ALT [Catalytic activity/Vol] 165 U/L High 0 - 34 U/L [facility] Anion gap [Moles/Vol] 10 mmol/L 3 - 13 mmol/L [facility] AST [Catalytic activity/Vol] 162 U/L High 15 - 46 U/L [facility] Bilirubin [Mass/Vol] 2.0 mg/dL High 0.2 - 1 .3 mg/dL [facility] Calcium [Mass/Vol] 8.4 mg/dL 8.4 - 10. 4 mg/dL [facility] Chloride [Moles/Vol] 99 mmol/L 98 - 10 7 mmol/L [facility] CO2 [Moles/Vol] 22 mmol/L 22 - 30 mmol/L [facility] Creatinine [Mass/Vol] 0.90 mg/dL 0.52 - 1.04 mg/dL [facility] GFR/1.73 sq M.predicted MDRD (S/P/Bld) [Vol rate/Area] 65.6 mL/min/{1.73_m2} - PINF [facility] Comment on above: Calculation based on the Chronic Kidney Disease Epidemiology Collaboration (CKD-EPI) equation refit without adjustment for race Glucose [Mass/Vol] 135 mg/dL High 70 - 100 mg/dL [facility] Potassium [Moles/Vol] 4.5 mmol/L 3.5 - 5.1 mmol/L [facility] Protein [Mass/Vol] 6.3 g/dL 6.3 - 8.2 g/dL [facility] Sodium [Moles/Vol] 131 mmol/L Low 135 - 145 mmol/L [facility] Urea nitrogen [Mass/Vol] 25 mg/dL High 7 - 17 mg/dL [facility] Laboratory - Chemistry and C hemistry - challengeon 01-20-2024 Lactate [Moles/Vol] 1.8 mmol/L 0.7 - 2. 0 mmol/L [facility] Magnesium [Mass/Vol] 1.4 mg/dL Low 1.6 - 2 .3 mg/dL [facility] No Panel Informationon 01-19 Interpretation and review of laboratory results Normal [facility] Interpretation and review of laboratory results Abnormal [facility] Phosphate [Moles/Vol]Ordered By: Hema Ashby on 01-20-2024 Interpretation and review of laboratory results Normal [facility] Phosphate [Mass/Vol] 3.8 mg/dL 2.5 - 4 .5 mg/dL [facility] US Heart TransesophagealOrde red By: Lynda Hughes on 01-20-2024 Ascending Aorta 2.8 cm [facility] Work Phone: [phone] Ascending Aorta Index 1.58 cm/m2 [facility] Work Phone: [phone] AV Area by Peak Velocity 1.2 cm2 [facility] Work Phone: [phone] AV Area by VTI 0.9 cm2 [facility] Work Phone: [phone] AV Mean Gradient 9 mmHg [facility] Work Phone: [phone] AV Mean Velocity 1.5 m/s [facility] Work Phone: [phone] AV Peak Gradient 15 mmHg [facility] Work Phone: [phone] AV Peak Velocity 2.0 m/s [facility] Work Phone: [phone] AV Velocity Ratio 0.35 [facility] Work Phone: [phone] AV VTI 39.1 cm [facility] Work Phone: [phone] KAMRYN/BSA Peak Velocity 0.7 cm2/m2 [facility] Work Phone: [phone] KAMRYN/BSA VTI 0.5 cm2/m2 [facility] Work Phone: [phone] LVOT Area 3.1 cm2 [facility] Work Phone: [phone] LVOT Cardiac Output 5.5 liter/minute [facility] Work Phone: [phone] LVOT Diameter 2.0 cm [facility] Work Phone: [phone] LVOT Mean Gradient 1 mmHg [facility] Work Phone: [phone] LVOT Peak Gradient 2 mmHg [facility] Work Phone: [phone] LVOT Peak Velocity 0.7 m/s [facility] Work Phone: [phone] LVOT Stroke Volume Index 19.2 mL/m2 [facility] Work Phone: [phone] LVOT SV 33.9 ml [facility] Work Phone: [phone] LVOT VTI 10.8 cm [facility] Work Phone: [phone] LVOT:AV VTI Index 0.28 [facility] Work Phone: [phone] MR VTI 112.7 cm [facility] Work Phone: [phone] MV Nyquist Velocity 38 cm/s [facility] Work Phone: [phone] MV Regurg Velocity PISA 4.6 m/s [facility] Work Phone: [phone] TR Max Velocity 2.47 m/s [facility] Work Phone: [phone] TR Peak Gradient 24 mmHg [facility] Work Phone: [phone] [facility] Work Phone: [phone] Heart Transesophagealon 0 01-20-2024 Left Ventricle: Left ventricle size is normal. Increased wall thickness. Normal left ventricular systolic function. The EF by visual approximation is 55%. Normal wall motion. Right Ventricle: Right ventricle size is normal. Normal systolic function. Mitral Valve: Valve structure is normal. Moderately severe (3+) regurgitation (when systolic BP ~ 190) with a centrally directed jet which improved to mild (1+) regurgitation with addition of nitroprusside. No stenosis noted. Aortic Valve: Mild stenosis of the aortic valve. AV mean gradient is 9 mmHg. Left Atrium: Left atrium is dilated. Normal appendage flow velocity. No left atrial appendage thrombus noted. Successful DMITRY guided cardioversion from atrial fibrillation to normal sinus rhythm. Left Ventricle Left ventricle size is normal. Increased wall thickness. Normal left ventricular systolic function. The EF by visual approximation is 55%. Normal wall motion. Right Ventricle Right ventricle size is normal. Normal systolic function. Left Atrium Left atrium is dilated. Normal appendage flow velocity. No left atrial appendage thrombus noted. Right Atrium Right atrium is dilated. IVC/SVC IVC was not assessed. Mitral Valve Valve structure is normal. Moderately severe (3+) regurgitation with a centrally directed jet which improved to mild (1+) regurgitation with addition of nitroprusside. No stenosis noted. Tricuspid Valve Valve structure is normal. Trace regurgitation. Aortic Valve Trileaflet. Moderately calcified cusps. Trace regurgitation. Mild stenosis of the aortic valve. AV mean gradient is 9 mmHg. Pulmonic Valve Valve structure is normal. No regurgitation. Ascending Aorta Normal sized ascending aorta. Pericardium No pericardial effusion. Septum No interatrial shunt visualized on color Doppler. Grade 0 Absence of bubbles. Pulmonary Artery Normal pulmonary arteries. Study Details Image quality: excellent. Heart rate: 11 bpm. Blood pressure: 131/5 mmHg. The underlying ECG rhythm was atrial fibrillation. The procedure, risks and alternatives were explained. Informed consent was obtained. DMITRY probe number: 1. DMITRY probe was inserted by the cementer oil well with no difficulty. No topical anesthesic. No complications. DMITRY probe was removed. Saline contrast was given to evaluate for intracardiac shunt. See anesthesia notes for medications given. Cardioversion Consent: Verbal consent obtained. Written consent obtained. Risks and benefits: risks, benefits and alternatives were discussed Consent given by: patient Patient understanding: patient states understanding of procedure being performed Patient consent: patient's understanding of procedure matches consent Procedure consent: procedure consent matches procedure scheduled Relevant documents: relevant documents present and verified Test results: test results available and properly labeled Imaging studies: imaging studies available Patient identity confirmed: verbally with patient Time out: Immediately prior to procedure a time out was called to verify the correct patient, procedure, equipment, help desk support and site/side marked as required. Sedation: Patient sedated: yes Sedation type: moderate (conscious) sedation Sedatives: propofol Cardioversion basis: elective Indications: hemodynamic instability Pre-procedure rhythm: atrial fibrillation Patient position: patient was placed in a supine position Chest area: chest area exposed Electrodes: pads Electrodes placed: anterior-posterior Number of attempts: 2 Attempt 1 mode: synchronous Attempt 1 waveform: biphasic Attempt 1 shock (in Joules): 200 Attempt 1 outcome: no change in rhythm Attempt 2 mode: synchronous Attempt 2 shock (in Joules): 200 Attempt 2 outcome: conversion to normal sinus rhythm Post-procedure rhythm: normal sinus rhythm Complications: no complications Patient tolerance: patient tolerated the procedure well with no immediate complications Comments: Successful DMITRY guided cardioversion from atrial fibrillation to normal sinus rhythm. CV CPACS HEMO Basic metabolic 1998 panelon 01-19-2024 Anion gap [Moles/Vol] 13 mmol/L 3 - 13 mmol/L [facility] Calcium [Mass/Vol] 8.7 mg/dL 8.4 - 10. 4 mg/dL [facility] Chloride [Moles/Vol] 97 mmol/L Low 98 - 10 7 mmol/L [facility] CO2 [Moles/Vol] 19 mmol/L Low 22 - 30 mmol/L [facility] Creatinine [Mass/Vol] 0.95 mg/dL 0.52 - 1.04 mg/dL [facility] GFR/1.73 sq M.predicted MDRD (S/P/Bld) [Vol rate/Area] 61.5 mL/min/{1.73_m2} - [facility] Comment on above: Calculation based on the Chronic Kidney Disease Epidemiology Collaboration (CKD-EPI) equation refit without adjustment for race Glucose [Mass/Vol] 137 mg/dL High 70 - 100 mg/dL [facility] Potassium [Moles/Vol] 4.9 mmol/L 3.5 - 5.1 mmol/L [facility] Sodium [Moles/Vol] 130 mmol/L Low 135 - 145 mmol/L [facility] Urea nitrogen [Mass/Vol] 28 mg/dL High 7 - 17 mg/dL [facility] CBC W Auto Differential pane l (Bld)on 01-19-2024 Basophils (Bld) [#/Vol] 0.0 10*3/uL 0.0 - 0.2 10*3/uL [facility] Basophils/100 WBC (Bld) 0.4 % 0.0 - 2.0 % [facility] Eosinophils (Bld) [#/Vol] 0.0 10*3/uL 0.0 - 0.5 10*3/uL [facility] Eosinophils/100 WBC (Bld) 0.1 % 0.0 - 6.0 % [facility] Erythrocyte distribution width (RBC) [Ratio] 15.0 % 11.5 - 15.0 % [facility] Hematocrit (Bld) [Volume fraction] 33.8 % Low 35.0 - 47.0 % [facility] Hemoglobin (Bld) [Mass/Vol] 11.0 g/dL Low 11.7 - 16.0 g/dL [facility] [employer] Immature granulocytes (Bld) [#/Vol] 0.1 10*3/uL High NINF - 0.1 10*3/uL [facility] [employer] Immature granulocytes/100 WBC (Bld) 1.1 % 0.0 - 2.0 % [facility] Interpretation and review of laboratory results Abnormal [facility] Lymphocytes (Bld) [#/Vol] 0.6 10*3/uL Low 1.0 - 4.3 10*3/uL [facility] Lymphocytes/100 WBC (Bld) 6.2 % Low 15.0 - 45.0 % [facility] MCH (RBC) [Entitic mass] 30.5 pg 26.0 - 34.0 pg [facility] MCHC (RBC) [Mass/Vol] 32.5 % 30.5 - 36.0 % [facility] MCV (RBC) [Entitic vol] 93.6 fL 77.0 - 99.0 fL [facility] [employer] Monocytes (Bld) [#/Vol] 0.9 10*3/uL 0.0 - 0.9 10*3/uL [facility] Monocytes/100 WBC (Bld) 8.5 % 5.0 - 13.0 % [facility] Neutrophils (Bld) [#/Vol] 8.5 10*3/uL High 1.8 - 7.5 10*3/uL [facility] Neutrophils/100 WBC (Bld) 83.7 % High 38.0 - 82.0 % [facility] Nucleated RBC/100 WBC (Bld) [Ratio] 0.0 % [facility] [employer] Platelet mean volume (Bld) [Entitic vol] 10.3 fL 9.0 - 12.7 fL [facility] Platelets (Bld) [#/Vol] 226 10*3/uL 140 - 440 10*3/uL [facility] RBC (Bld) [#/Vol] 3.61 10*6/uL Low 3.80 - 5.2 0 10*6/uL [facility] WBC (Bld) [#/Vol] 10.1 10*3/uL 3.6 - 10.7 10*3/uL [facility] CT Abdomen and Pelvis W cont rast Guido 01-19-2024 Interstitial pulmona ry edema and pleural effusions. Gallbladder edema and pericholecystic fluid suspicious for cholecystitis but less specific in the setting of volume overload. Consider sonography after diuresis versus HIDA scan. Report Dictated on Electronically Signed By: Karolina Lincoln MD Electronically Signed Date/Time: 01/19/2024 2:23 PM EDT [facility] [employer] Patient Name: ROLANDO PETERS : 1945 Exam Date/Time: 01/19/2024 13:25 Procedure: CT ABDOMEN PELVIS W CONTRAST Ordering Provider: HARRIS HOLLI Reason For Exam: RUQ abdominal pain radiating to groin CLINICAL HISTORY: RUQ abdominal pain radiating to groin COMPARISON: CT of the chest, abdomen, and pelvis dated 12/15/[address] of the chest dated 11/25/2023 TECHNIQUE: Helical CT images were acquired through the abdomen and pelvis. All CT scans at this hospital employ automatic and/or manual dose reduction techniques to keep radiation dose as low as reasonably achievable. Intravenous contrast media: 75 cc Isovue 350. Enteric contrast media: None. FINDINGS: Lower Chest: New moderate right and small left pleural effusions. Interlobular septal thickening involving the lung bases. Bowel/Peritoneum: No bowel wall thickening, pneumatosis, or evidence of obstruction. Trace ascites. Noninflamed appendix. Sigmoid diverticula without specific evidence of acute diverticulitis. Hepatobiliary: Normal hepatic morphology. Edematous, nondistended gallbladder. Pericholecystic fluid. No biliary duct dilation. Pancreas: Unremarkable. Lymphatics: No splenomegaly or adenopathy. Urinary: Scarred kidneys. No hydronephrosis. Low-lying, nondistended urinary bladder. Reproductive: Status post hysterectomy. Vascular: Severely atherosclerotic but normal caliber abdominal aorta. 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 Severe bilateral renal artery stenosis. Severe bilateral iliofemoral arterial stenoses. Miscellaneous: No adrenal nodule. Musculoskeletal: Osteoporosis. [facility] [employer] Karolina Lincoln MD - 01/19/2024 Patient Name: ROLANDO PETERS : 1945 [facility]#: [id number] Exam Date/Time: 01/19/2024 13:25 Procedure: CT ABDOMEN PELVIS W CONTRAST Ordering Provider: HARRIS HOLLI Reason For Exam: RUQ abdominal pain radiating to groin CLINICAL HISTORY: RUQ abdominal pain radiating to groin COMPARISON: CT of the chest, abdomen, and pelvis dated 12/15/[address] of the chest dated 11/25/2023 TECHNIQUE: Helical CT images were acquired through the abdomen and pelvis. All CT scans at this hospital employ automatic and/or manual dose reduction techniques to keep radiation dose as low as reasonably achievable. Intravenous contrast media: 75 cc Isovue 350. Enteric contrast media: None. FINDINGS: Lower Chest: New moderate right and small left pleural effusions. Interlobular septal thickening involving the lung bases. Bowel/Peritoneum: No bowel wall thickening, pneumatosis, or evidence of obstruction. Trace ascites. Noninflamed appendix. Sigmoid diverticula without specific evidence of acute diverticulitis. Hepatobiliary: Normal hepatic morphology. Edematous, nondistended gallbladder. Pericholecystic fluid. No biliary duct dilation. Pancreas: Unremarkable. Lymphatics: No splenomegaly or adenopathy. Urinary: Scarred kidneys. No hydronephrosis. Low-lying, nondistended urinary bladder. Reproductive: Status post hysterectomy. Vascular: Severely atherosclerotic but normal caliber abdominal aorta. 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 Severe bilateral renal artery stenosis. Severe bilateral iliofemoral arterial stenoses. Miscellaneous: No adrenal nodule. Musculoskeletal: Osteoporosis. IMPRESSION: Interstitial pulmonary edema and pleural effusions. Gallbladder edema and pericholecystic fluid suspicious for cholecystitis but less specific in the setting of volume overload. Consider sonography after diuresis versus HIDA scan. Report Dictated on Electronically Signed By: Karolina Lincoln MD Electronically Signed Date/Time: 01/19/2024 2:23 PM EDT [facility] Radiology Study observation (narrative) [facility] alth CT Abdomen and Pelvis W cont rast IVOrdered By: Karolina Lincoln on 01-19-2024 [facility] CTA Chest vessels WO and W c ontrast Guido 01-19-2024 1. No pulmonary embo milagros identified. 2. Interlobular septal thickening and groundglass opacities compatible with pulmonary edema. Bilateral infiltrates could be due to alveolar edema or infection; recommend imaging follow-up to ensure resolution. 3. Bilateral pleural effusions, larger on the right. 4. Atherosclerotic disease with coronary artery calcifications. 5. Multiple small incidental lung nodules, not requiring follow-up given their small size*. *2017 - UPDATED [employer] GUID[employer] FOR MANAGEMENT OF SMALL PULMONARY NODULES DETECTED ON CT Note: Recommendations do not apply for lung cancer screening, patients with immunosuppression or with known cancer. Dimensions are average of long and short axis rounded to the millimeter MULTIPLE NODULES: LOW RISK PATIENT (Use most suspicious nodule to manage guidelines) All <6mm - No follow up Any >6mm - 3-6 months, then consider 18-24 months MULTIPLE NODULES: HIGH RISK PATIENT (Use most suspicious nodule to manage guidelines) All <6mm - No follow up Any >6mm - 3-6 months, then 18-24 months Report Dictated on Electronically Signed By: Deven Mendoza MD Electronically Signed Date/Time: 01/19/2024 3:28 PM [facility] 1945 [id number] Exam Date/Time: 01/19/2024 14:28 Procedure: CT CHEST ANGIOGRAM W AND/OR WO IV CONTRAST Ordering Provider: HARRIS HOLLI Reason For Exam: Pulmonary embolism (PE) suspected, unknown D-dimer CT ANGIOGRAPHY CHEST: CLINICAL INDICATION: Dyspnea TECHNIQUE: Transaxial sequence from apices through the bases during dynamic intravenous infusion of 75 mL of contrast media, injected at a high flow rate. Multiplanar and 3D MIP reconstruction was performed concurrently on an independent viewing workstation. Dose reduction was employed with automated exposure control. COMPARISON: 11/25/2023 FINDINGS: Exam quality: Good contrast enhancement of the vasculature. Pulmonary Arteries: No filling defects identified throughout the main pulmonary arteries along with the lobar, segmental and visualized subsegmental branches. Aorta: Normal caliber. Atherosclerotic calcifications. Lungs: There is diffuse smooth interlobular septal thickening and scattered groundglass opacities in both lungs. Small infiltrates are present in the anterior left upper lobe which corresponds to the abnormality on the prior CT, as well as in the right middle lobe. There are multiple small nodules measuring up to 4 mm in the left lower lobe (series 4 images 193 and 204) and right upper lobe (image 140). Pleural fluid: Moderate to large right and small left pleural effusions. Heart: Cardiac chambers are normal in size. Coronary artery calcifications are noted. Mediastinum/Jody: No mediastinal or hilar mass. Soft tissues chest wall/Neck base: Surgical clips in the right breast. A left breast implant is present. Upper abdomen: No abnormality throughout the visualized portions of liver. No abnormality throughout the spleen. Adrenals are unremarkable. Osseous structures: Mild degenerative change of the thoracic spine is noted. [facility] Deven Mendoza MD - 01/19/2024 Patient Name: [facility] : 1945 [id number] Exam Date/Time: 01/19/2024 14:28 Procedure: CT CHEST ANGIOGRAM W AND/OR WO IV CONTRAST Ordering Provider: HARRIS HOLLI Reason For Exam: Pulmonary embolism (PE) suspected, unknown D-dimer CT ANGIOGRAPHY CHEST: CLINICAL INDICATION: Dyspnea TECHNIQUE: Transaxial sequence from apices through the bases during dynamic intravenous infusion of 75 mL of contrast media, injected at a high flow rate. Multiplanar and 3D MIP reconstruction was performed concurrently on an independent viewing workstation. Dose reduction was employed with automated exposure control. COMPARISON: 11/25/2023 FINDINGS: Exam quality: Good contrast enhancement of the vasculature. Pulmonary Arteries: No filling defects identified throughout the main pulmonary arteries along with the lobar, segmental and visualized subsegmental branches. Aorta: Normal caliber. Atherosclerotic calcifications. Lungs: There is diffuse smooth interlobular septal thickening and scattered groundglass opacities in both lungs. Small infiltrates are present in the anterior left upper lobe which corresponds to the abnormality on the prior CT, as well as in the right middle lobe. There are multiple small nodules measuring up to 4 mm in the left lower lobe (series 4 images 193 and 204) and right upper lobe (image 140). Pleural fluid: Moderate to large right and small left pleural effusions. Heart: Cardiac chambers are normal in size. Coronary artery calcifications are noted. Mediastinum/Jody: No mediastinal or hilar mass. Soft tissues chest wall/Neck base: Surgical clips in the right breast. A left breast implant is present. Upper abdomen: No abnormality throughout the visualized portions of liver. No abnormality throughout the spleen. Adrenals are unremarkable. Osseous structures: Mild degenerative change of the thoracic spine is noted. IMPRESSION: 1. No pulmonary embolus identified. 2. Interlobular septal thickening and groundglass opacities compatible with pulmonary edema. Bilateral infiltrates could be due to alveolar edema or infection; recommend imaging follow-up to ensure resolution. 3. Bilateral pleural effusions, larger on the right. 4. Atherosclerotic disease with coronary artery calcifications. 5. Multiple small incidental lung nodules, not requiring follow-up given their small size*. *2017 - UPDATED [employer] GUID[employer] FOR MANAGEMENT OF SMALL PULMONARY NODULES DETECTED ON CT Note: Recommendations do not apply for lung cancer screening, patients with immunosuppression or with known cancer. Dimensions are average of long and short axis rounded to the millimeter MULTIPLE NODULES: LOW RISK PATIENT (Use most suspicious nodule to manage guidelines) All <6mm - No follow up Any >6mm - 3-6 months, then consider 18-24 months MULTIPLE NODULES: HIGH RISK PATIENT (Use most suspicious nodule to manage guidelines) All <6mm - No follow up Any >6mm - 3-6 months, then 18-24 months Report Dictated on Electronically Signed By: Deven Mendoza MD Electronically Signed Date/Time: 01/19/2024 3:28 PM EDT [facility] Radiology Study observation (narrative) [facility] alth CTA Chest vessels WO and W c ontrast IVOrdered By: Deven Mendoza on 01-19-2024 [facility] [employer] Work Phone: ECG 12 Leadon 01-19-2024 I personally reviewe d and interpreted the EKG shows atrial fibrillation heart rate 167 bpm with irregularly irregular heartbeat [facility] Work Phone: [facility] Work Phone: Hepatic function 2000 panelo n 01-19-2024 Albumin [Mass/Vol] 4.0 g/dL 3.5 - 5.0 g/dL [facility] ALP [Catalytic activity/Vol] 121 U/L 38 - 126 U/L [facility] ALT [Catalytic activity/Vol] 84 U/L High 0 - 34 U/L [facility] AST [Catalytic activity/Vol] 65 U/L High 15 - 46 U/L [facility] Bilirubin [Mass/Vol] 2.1 mg/dL High 0.2 - 1 .3 mg/dL [facility] Bilirubin.conjugated [Mass/Vol] 0.0 mg/dL 0.0 - 0.3 mg/dL [facility] Protein [Mass/Vol] 6.5 g/dL 6.3 - 8.2 g/dL [facility] Laboratory - Chemistry and C hemistry - challengeon 01-19-2024 Magnesium [Mass/Vol] 1.6 mg/dL 1.6 - 2 .3 mg/dL [facility] Lactate [Moles/Vol] 2.9 mmol/L High 0.7 - 2. 0 mmol/L [facility] Troponin I.cardiac [Mass/Vol] 0.026 ng/mL [facility] - 0.034 ng/mL [facility] Troponin I.cardiac [Mass/Vol] 0.021 ng/mL [facility] - 0.034 ng/mL [facility] Lipase [Catalytic activity/Vol] 83 U/L 23 - 300 U/L [facility] Laboratory - Chemistry and C hemistry - challengeOrdered By: Dyana Altamirano on 01-19-2024 Base excess Calc (Bld) [Moles/Vol] -13.17948 mmol/L Low -3.0 - 3.0 mmol/L [facility] CO2 (Bld) [Partial pressure] 29.6 mm[Hg] Low - PINF [facility] CO2 [Moles/Vol] 13.2 mmol/L Low 23.0 - 27.0 mmol/L [facility] HCO3 (Bld) [Moles/Vol] 12.3 mmol/L Low 21.0 - 25.0 mmol/L [facility] Oxygen (Bld) [Partial pressure] 145.5 mm[Hg] High [facility] pH (Bld) 7.236 [pH] Low 7.350 - 7.450 [facility] Laboratory - Hematology and Cell countsOrdered By: Dyana Altamirano on 01-19-2024 Hemoglobin (Bld) [Mass/Vol] 11.8 g/dL Screen only [facility] Lipase [Catalytic activity/V ol]on 01-19-2024 Interpretation and review of laboratory results Normal [facility] Magnesium [Mass/Vol]on 01-18 Interpretation and review of laboratory results Normal [facility] Natriuretic peptide B [Mass/ Vol]on 01-19-2024 Interpretation and review of laboratory results Abnormal [facility] Natriuretic peptide B (Bld) [Mass/Vol] 6800 pg/mL High <20 - 300 [facility] [employer] No Panel Informationon 01-18 [facility] P [place] 0 degrees [facility] DE Interval 0 ms [facility] QRS [place] 66 degrees [facility] QRSD Interval 62 ms [facility] Interval 278 ms [facility] QTC Interval 434 ms [facility] T Wave [place] 73 degrees [facility] Atrial fibrillation with rapid V-rate Anteroseptal infarct, age indeterminate Electronically Signed On 01-19-2024 18:24:56 EDT by Luís Barnett MD - 01/19/2024 IMPRESSION: Atrial fibrillation with rapid V-rate Anteroseptal infarct, age indeterminate Electronically Signed On 01-19-2024 18:24:56 EDT by Luís Hayes [facility] Supraventricular tachycardia Anteroseptal infarct, age indeterminate Electronically Signed On 01-19-2024 18:24:45 EDT by Luís Barnett MD - 01/19/2024 IMPRESSION: Supraventricular tachycardia Anteroseptal infarct, age indeterminate Electronically Signed On 01-19-2024 18:24:45 EDT by Luís Hayes [facility] Interpretation and review of laboratory results Abnormal [facility] Interpretation and review of laboratory results Abnormal [facility] No Panel InformationOrdered By: Luís Hayes on 01-19-2024 P [place] 84 degrees [facility] [employer] Work Phone: DE Interval 101 ms [facility] [employer] Work Phone: QRS [place] 56 degrees [facility] [employer] Work Phone: QRSD Interval 58 ms [facility] Work Phone: QT Interval 289 ms [facility] Work Phone: QTC Interval 466 ms [facility] [employer] Work Phone: [employer] [place] 106 degrees [facility] Work Phone: [employer] Work Phone: No Panel InformationOrdered By: Dyana Altamirano on 01-19-2024 Interpretation and review of laboratory results Abnormal [facility] Source Of Oxygen Non-rebreather mask [facility] Phosphate [Moles/Vol]on Interpretation and review of laboratory results Abnormal [facility] Phosphate [Mass/Vol] 6.2 mg/dL High 2.5 - 4 .5 mg/dL [facility] Troponin I.cardiac [Mass/Vol ]on 01-19-2024 Interpretation and review of laboratory results Normal [facility] Patients with high levels of Biotin oral intake (ie >5 mg/day) may have falsely decreased Troponin levels. [facility] Interpretation and review of laboratory results Normal [facility] Patients with high levels of Biotin oral intake (ie >5 mg/day) may have falsely decreased Troponin levels. [facility] Urinalysis complete panel (U )Ordered By: Kimi Luevano on 01-19-2024 Bacteria LM.HPF (Urine sed) [#/Area] Negative Negative /HPF [facility] Bilirubin Ql (U) Negative Negative mg/dL [facility] Clarity (U) Clear Clear [facility] Color (U) Colorless Lt. Yellow [facility] Epithelial cells.squamous LM.HPF (Urine sed) [#/Area] 0-2 [facility] h Glucose Ql (U) Normal Normal (<70) mg/dL [facility] Hemoglobin Ql (U) Negative Negative mg/dL [facility] Hyaline casts Auto (Urine sed) [#/Area] 0-2 Abnormal Negative /LPF [facility] Interpretation and review of laboratory results Abnormal [facility] Ketones (U) [Mass/Vol] Negative Negat mt mg/dL [facility] Leukocyte esterase Test strip Ql (U) 75 Abnormal Negative Tushar/uL [facility] Nitrite Ql (U) Negative Negative [facility] th pH (U) 5.5 [pH] 5.0 - 8.0 pH [facility] Protein (U) [Mass/Vol] 50 mg/dL Abnormal Negative [facility] RBC LM.HPF (Urine sed) [#/Area] 0-2 [facility] Specific gravity (U) [Rel density] 1.024 1.005 - 1.030 [facility] Urobilinogen (U) [Mass/Vol] Normal Normal (0-1) mg/dL [facility] WBC LM.HPF (Urine sed) [#/Area] 0-2 [facility] Vital signson 01-19-2024 Heart rate 137 /min bpm [facility] Vital signsOrdered By: Luís Abigail on 01-19-2024 Heart rate 157 /min bpm [facility] Work Phone: XR Chest Single viewon 01-18 1. New right pleural effusion. Opacity projecting over the lower 1/2 right lung. 2. 2.7 x 2.2 cm nodular density overlying the mid left lung, which is new compared to the prior exam. Report Dictated on Electronically Signed By: Amanuel Rosas MD Electronically Signed Date/Time: 01/19/2024 12:59 PM EDT [facility] 1945 [id number] Exam Date/Time: 01/19/2024 12:40 Procedure: XR CHEST 1 VIEW Ordering Provider: CHRISTENSEN ATTEH Reason For Exam: CHEST PAIN CHEST X-RAY AP CLINICAL INDICATION: Chest pain AP radiograph of the chest was obtained. COMPARISON: October 06, 2023 FINDINGS: The cardiac silhouette is within normal limits. New right pleural effusion. Opacity projecting over the lower 1/2 right lung. 2.7 x 2.2 cm nodular density overlying the mid left lung, which is new compared to the prior exam. No additional left lung opacity or consolidation. No left pleural effusion or pneumothorax is identified. Degenerative changes of the thoracic spine are noted. [facility] Amanuel Rosas MD - 01/19/2024 Patient Name: ROLANDO PETERS : 1945 [facility]#: [id number] Exam Date/Time: 01/19/2024 12:40 Procedure: XR CHEST 1 VIEW Ordering Provider: CHRISTENSEN ATTEH Reason For Exam: CHEST PAIN CHEST X-RAY AP CLINICAL INDICATION: Chest pain AP radiograph of the chest was obtained. COMPARISON: October 06, 2023 FINDINGS: The cardiac silhouette is within normal limits. New right pleural effusion. Opacity projecting over the lower 1/2 right lung. 2.7 x 2.2 cm nodular density overlying the mid left lung, which is new compared to the prior exam. No additional left lung opacity or consolidation. No left pleural effusion or pneumothorax is identified. Degenerative changes of the thoracic spine are noted. IMPRESSION: 1. New right pleural effusion. Opacity projecting over the lower 1/2 right lung. 2. 2.7 x 2.2 cm nodular density overlying the mid left lung, which is new compared to the prior exam. Report Dictated on Electronically Signed By: Amanuel Rosas MD Electronically Signed Date/Time: 01/19/2024 12:59 PM EDT [facility] [employer] Radiology Study observation (narrative) [facility] XR Chest Single viewOrdered By: Amanuel Rosas on 01-19-2024 [employer] Work Phone: HbA1c (Bld) [Mass fraction]o n 01-09-2024 Average glucose Estimated from glycated hemoglobin (Bld) [Mass/Vol] 174 mg/dL Not Established [facility] Interpretation and review of laboratory results Abnormal [facility] Diagnosis of Diabetes-Adults Non-Diabetic: < or = 5.6% Increased risk for developing diabetes: 5.7-6.4% Diagnostic of diabetes: > or = 6.5% Monitoring of Diabetes Age (y).................... ... Therapeutic Goal (%) Adults: >18.................... .....<7.0 Pediatrics: 13-18.................. .<7.5 Pediatrics: 7-12................... .<8.0 Pediatrics: 0-6.................... . 7.5-8.5 [employer]. Diabetes Care 33(S1), Aug 2009 [facility] Hemoglobin A1Con 01-09-2024 HbA1c (Bld) [Mass fraction] 7.7 % High see below [facility] XR Ankle - left 3 Viewson Soft tissue swelling left ankle with degenerative changes but no acute osseous abnormality. Signed by: Damon Diallo 01/09/2024 4:36 PM Dictation workstation: [id number] Interpreted By: Damon Ny, STUDY: XR ANKLE LEFT 3+ VIEWS INDICATION: Signs/Symptoms:left ankle swelling. COMPARISON: None ACCESSION NUMBER(S): [id number] ORDERING CLINICIAN: JEREL FRASER FINDINGS: Mild degenerative changes of the left ankle and midfoot. Calcaneal spurs. No evidence of fracture or lesion. Mild soft tissue swelling. [facility] Damon Diallo MD - 01/09/2024 Interpreted By: Damon Dilalo, STUDY: XR ANKLE LEFT 3+ VIEWS INDICATION: Signs/Symptoms:left ankle swelling. COMPARISON: None ACCESSION NUMBER(S): [id number] ORDERING CLINICIAN: JEREL FRASER FINDINGS: Mild degenerative changes of the left ankle and midfoot. Calcaneal spurs. No evidence of fracture or lesion. Mild soft tissue swelling. IMPRESSION: Soft tissue swelling left ankle with degenerative changes but no acute osseous abnormality. Signed by: Damon Diallo 01/09/2024 4:36 PM Dictation workstation: [id number] [facility] Work Phone: XR Ankle - left 3 ViewsOrder ed By: Damon Diallo on 01-09-2024 [facility] Work Phone: HbA1c (Bld) [Mass fraction]o n 01-08-2024 Average glucose Estimated from glycated hemoglobin (Bld) [Mass/Vol] 174 mg/dL Normal Not Established [facility] Comment on above: Order Comment: Diagn osis of Diabetes-Adults Non-Diabetic: < or = 5.6% Increased risk for developing diabetes: 5.7-6.4% Diagnostic of diabetes: > or = 6.5% Monitoring of Diabetes Age (y)....................... Therapeutic Goal (%) Adults: >18.........................<7.0 Pediatrics: 13-18...................<7.5 Pediatrics: 7-12....................<8.0 Pediatrics: 0-6..................... 7.5-8.5 [employer]. Diabetes Care 33(S1), Aug 2009 Performed By: #### [id number] #### RACHELLE Ramirez ([id number]) [facility] [address] [place] [address] Hemoglobin A1c/Hemoglobin.to tamie 01-08-2024 HbA1c (Bld) [Mass fraction] 7.7 % High see below [facility] Comment on above: Order Comment: Diagn osis of Diabetes-Adults Non-Diabetic: < or = 5.6% Increased risk for developing diabetes: 5.7-6.4% Diagnostic of diabetes: > or = 6.5% Monitoring of Diabetes Age (y)....................... Therapeutic Goal (%) Adults: >18.........................<7.0 Pediatrics: 13-18...................<7.5 Pediatrics: 7-12....................<8.0 Pediatrics: 0-6..................... 7.5-8.5 [employer]. Diabetes Care 33(S1), Aug 2009 Performed By: #### [phone] #### RACHELLE Ramirez ([id number]) [facility] ([facility]) [address] [place] [address] XR ANKLE LEFT 3+ VIEWSon XR ANKLE LEFT 3+ VIEWS Interpreted By: Damon Burleson, STUDY: XR ANKLE LEFT 3+ VIEWS INDICATION: Signs/Symptoms:left ankle swelling. COMPARISON: None ACCESSION NUMBER(S): [id number] ORDERING CLINICIAN: JEREL FRASER FINDINGS: Mild degenerative changes of the left ankle and midfoot. Calcaneal spurs. No evidence of fracture or lesion. Mild soft tissue swelling. IMPRESSION: Soft tissue swelling left ankle with degenerative changes but no acute osseous abnormality. Signed by: Damon Diallo 01/09/2024 4:36 PM Dictation workstation: [id number] [facility] XR Ankle - left 3 Viewson Radiology Study observation (narrative) [facility] Work Phone: No Panel Informationon 10-28 [employer] XR Chest Single viewon 10-07 Lines, tubes, and devices: Redemonstration of right chest tube remaining at the right lung apex. Lungs and pleura: Hyperinflated lungs. No sizable pneumothorax. Mild interstitial prominence is again noted. Blunting of the costophrenic angles which may relate to hypoinflation or minimal effusions. Nodular opacities in the right lower lobe are better assessed on prior chest CT. Mild process likely vascular without overt pulmonary edema. Cardiomediastinal silhouette: Stable cardiomediastinal silhouette.Atherosclero tic calcifications of the aortic arch Other: Bony thorax appears grossly unchanged. Surgical clips project over the right lower chest. Report Dictated on Electronically Signed By: Alvaro Pool MD Electronically Signed Date/Time: 10/07/2023 12:53 AM [facility] [employer] Patient Name: ROLANDO PETERS : 1945 Exam Date/Time: 10/06/2023 16:52 Procedure: XR CHEST 1 VIEW Ordering Provider: CORTES HEIDI Reason For Exam: chest tube clamped. follow up on pneumothorax EXAMINATION: CHEST RADIOGRAPH (SINGLE VIEW AP OR PA) Clinical History: chest tube clamped. follow up on pneumothorax Comparison: AP chest radiograph 10/06/2023 at 08:17, chest CT 08/24/2023 RESULT: See impression [facility] Alvaro Pool MD - 10/07/2023 Patient Name: [facility] 1945 [id number] Exam Date/Time: 10/06/2023 16:52 Procedure: XR CHEST 1 VIEW Ordering Provider: CORTES HEIDI Reason For Exam: chest tube clamped. follow up on pneumothorax EXAMINATION: CHEST RADIOGRAPH (SINGLE VIEW AP OR PA) Clinical History: chest tube clamped. follow up on pneumothorax Comparison: AP chest radiograph 10/06/2023 at 08:17, chest CT 08/24/2023 RESULT: See impression IMPRESSION: Lines, tubes, and devices: Redemonstration of right chest tube remaining at the right lung apex. Lungs and pleura: Hyperinflated lungs. No sizable pneumothorax. Mild interstitial prominence is again noted. Blunting of the costophrenic angles which may relate to hypoinflation or minimal effusions. Nodular opacities in the right lower lobe are better assessed on prior chest CT. Mild process likely vascular without overt pulmonary edema. Cardiomediastinal silhouette: Stable cardiomediastinal silhouette.Atherosclero tic calcifications of the aortic arch Other: Bony thorax appears grossly unchanged. Surgical clips project over the right lower chest. Report Dictated on Electronically Signed By: Alvaro Pool MD Electronically Signed Date/Time: 10/07/2023 12:53 AM EST [employer] XR Chest Single viewOrdered By: Alvaro Pool on 10-07-2023 [employer] Work Phone: Basic metabolic 1998 panelon 10-06-2023 Anion gap [Moles/Vol] 3 mmol/L 3 - 13 mmol/L [employer] Calcium [Mass/Vol] 8.6 mg/dL 8.4 - 10. 4 mg/dL [facility] Chloride [Moles/Vol] 104 mmol/L 98 - 10 7 mmol/L [facility] CO2 [Moles/Vol] 27 mmol/L 22 - 30 mmol/L [facility] Creatinine [Mass/Vol] 0.75 mg/dL 0.52 - 1.04 mg/dL [facility] GFR/1.73 sq M.predicted MDRD (S/P/Bld) [Vol rate/Area] 82.1 mL/min/{1.73_m2} - PINF [facility] Comment on above: Calculation based on the Chronic Kidney Disease Epidemiology Collaboration (CKD-EPI) equation refit without adjustment for race Glucose [Mass/Vol] 125 mg/dL High 70 - 100 mg/dL [facility] Interpretation and review of laboratory results Abnormal [facility] Potassium [Moles/Vol] 4.6 mmol/L 3.5 - 5.1 mmol/L [facility] Sodium [Moles/Vol] 134 mmol/L Low 135 - 145 mmol/L [facility] Urea nitrogen [Mass/Vol] 19 mg/dL High 7 - 17 mg/dL [facility] CBC W Auto Differential pane l (Bld)Ordered By: Satay Dumont on 10-06-2023 Basophils (Bld) [#/Vol] 0.0 10*3/uL 0.0 - 0.2 10*3/uL [facility] Basophils/100 WBC (Bld) 0.4 % 0.0 - 2.0 % [facility] Eosinophils (Bld) [#/Vol] 0.0 10*3/uL 0.0 - 0.5 10*3/uL [facility] Eosinophils/100 WBC (Bld) 0.1 % Low 1.0 - 6.0 % [facility] Erythrocyte distribution width (RBC) [Ratio] 13.8 % 11.5 - 14.5 % [facility] Hematocrit (Bld) [Volume fraction] 32.3 % Low 35.0 - 47.0 % [facility] Hemoglobin (Bld) [Mass/Vol] 10.9 g/dL Low 11.7 - 16.0 g/dL [facility] Interpretation and review of laboratory results Abnormal [facility] Lymphocytes (Bld) [#/Vol] 0.9 10*3/uL Low 1.0 - 4.3 10*3/uL [facility] Lymphocytes/100 WBC (Bld) 8.8 % Low 20.0 - 40.0 % [facility] MCH (RBC) [Entitic mass] 31.5 pg 26.0 - 34.0 pg [facility] MCHC (RBC) [Mass/Vol] 33.9 % 32.0 - 36.0 % [facility] MCV (RBC) [Entitic vol] 92.8 fL 80.0 - 98.0 fL [facility] Monocytes (Bld) [#/Vol] 0.8 10*3/uL 0.0 - 0.8 10*3/uL [facility] Monocytes/100 WBC (Bld) 8.7 % 2.0 - 10.0 % [facility] Neutrophils (Bld) [#/Vol] 8.0 10*3/uL High 1.8 - 7.0 10*3/uL [facility] Neutrophils/100 WBC (Bld) 82.0 % High 40.0 - 80.0 % [facility] Nucleated RBC/100 WBC (Bld) [Ratio] 0.0 % [facility] Platelet mean volume (Bld) [Entitic vol] 8.4 fL 7.4 - 12.4 fL [facility] Platelets (Bld) [#/Vol] 163 10*3/uL 140 - 440 10*3/uL [facility] RBC (Bld) [#/Vol] 3.48 10*6/uL Low 3.8 - 5.20 10*6/uL [facility] WBC (Bld) [#/Vol] 9.7 10*3/uL 3.6 - 10.7 10*3/uL [facility] Laboratory - Chemistry and C hemistry - challengeon 10-06-2023 Glucose [Mass/Vol] 119 mg/dL High 70 - 100 mg/dL [facility] Glucose [Mass/Vol] 131 mg/dL High 70 - 100 mg/dL [facility] Glucose [Mass/Vol] 130 mg/dL High 70 - 100 mg/dL [facility] Microscopic observation Meth enamine silver nitrate stain Nom (Tiss)Ordered By: Darell Clemens on 10-06-2023 Silver Stain No fungal elements seen [facility] Work Phone: Comment on above: Resident Physician: Yamel Dougherty D.O Attending Physician: Darell Clemens M.D. Please correlate wit h culture results. Reference Range: No fungal elements seen [employer] Phone: [employer] Phone: No Panel InformationOrdered By: Shannon Quinteros on 10-06-2023 Case Report Fine Needle Aspirati on, Cytology Case: [id number] Authorizing Provider: Stephanie Arana, Collected: 10/05/2023 0846 DO Ordering Location: [facility] Endoscopy Received: 10/05/2023 1020 Pathologist: Shannon Quinteros MD PhD Specimens: A) - Lung, Right Middle Lobe B) - Lung, Right Lower Lobe C) - Mediastinal Lymph Node Station 7 D) - Mediastinal Lymph Node Station 4L E) - Mediastinal Lymph Node Station 4R F) - Mediastinal Lymph Node Station 11R G) - Bronchoalveolar, Right Middle Lobe H) - Bronchoalveolar, Right Lower Lobe [facility] Phone: Case Screening Location [facility], [address] [place] [address]; CLIA: [id number]; Joint Commission: [id number]; CAP: [id number] [facility] Phone: Comment d4vebORzVQHejXAdUYKx NVx ufsRaXMRfgIVsP0MyalajPO tnYP4vBS9oxUaspRHxgQMfS AQcWoAeu0agn538wDSeb5vt OMQEGMqbVCKJVGe2dLlkQ96 bn2K3EtqbQ72jkZDpENR7RF LoLIVasEJdQDWiPGO3MWEdd KEjP1yhRJYeJR8xjhbaMJga MRdnDSZzjNU4EOMmhNVoT1K yAYRmSBocOONnjhj9KaEpOc 9vdGVyeTcyMFxwYXJkXHBsY PhdUCSuZyAtXFIDEJFRE55J TCBTVVJHSUNBTCBDQVNFUyB IOCeKAKJEG1RxBYeGVcEORH 8MRWVRWVQxK8LrM3MIZcrAV SBccGFyfQ== [facility] Work Phone: Disclaimer j7veiVZuFRVipCTiUkBz MDA aYDRok9wlDUVsmSZmVmBvRr NcZnRuYmpcdWMxXGRlZmYwe 1ygt835tXSsq6mxQLOeSiP0 nYOkUMNgT43lNUDSG401XOL oXOokl1zfc3GoIJTfoPXsu2 U6KOSKCYhxKMAPNKr0lGvyY 69hv1R5RwzcW5dwRUAsQGJe V3VpAO9oXYKaWxp3YFD7WDW 2FNMmOTVtW1WhTA5zEQAgsA AsAWn0s7wvqAyfBKFrCLR8z 4mjOGvhbqLbYF1sfw5ghNm8 m8opctXoSYRpIGHspTWDXGY kV0DpuNusPx9kyUr8hLqxUx meKOT7Dqv4SH3xqk89bvz2u LnaHIUjaypvShF3YQmbNHKs fjpfBHr8WDdfDYNdoFM5GTM ikIWwC8IdLJAmDN2iiiw8WA Q8CQjuSUPhTrG1LUNxdGVfE QVdlVkjKGnbp921PWD2SbDv ME0nL7Pwl9X3uY9wyAHzJNP kfCPmPkPjXRVzjp4vrFFbFJ yzh7ZuDPG0ezE4ySNquINfA OUoFZ84Muduc9FcRvajBYI6 QOMlbeGvl1Nzv7vdSvUfviC xM5ceL2HiTNVxCBLiCFMyOo AntgYcn0Tax2JwcRNvtHx0t 2uzWTVfBSKgpSykx1otLOW8 RRUaM4B3iECvj2ttAUefEYE utLE5ssO4LOPctUHgJ2PalI 0hYIOkOV9uopq7l1npJFW4N SbqYUEmAgT1aaV2RUCamPIe MTFaxYwgRAzbl247BIY4HlW lITAng5BwJ7CidVfoW69guK nvV62rHMQpcGgbtA7sfNenv F8cXyObOyCmEAgmsTirxTSi kkmfIRdetnQ3BMqgcnyiPVW vSAmeX9huPeDcTWBatRljHM hwe0XrHGVpUONoQEYaPMihN 1znwV0rmqjhIQeaBXLheQzu w6ypNeSctHY2CH0rucYfLZQ ipXukraU8tsJohCvryE6bqD 4npBkofQ8ccNPjyIK1uymgT GluIHNpdHUgaHlicmlkaXph hRdcokxijK9dQVM2qVNfNAP 6cCYmEPLjDUTxJUXxdI80eq 3ryNLbkiDsI7ArR0DqqMSoa QpeWdvxeWPcxEIxWd9afQEf HE4sMRVujVZlH0PiRH1uTGV hclxwYXIgVGhlIHVzZSBvZi CiblOeo4RvqQ1eMIQfZWAnV V19leEzfnT6eVAwAFLjukRx dGVzdHMgaXMgcmVndWxhdGV qOVSbWAYgQPBdZRm6kHHqg9 HdS8jeeNSrekCpF3NrpZIrS QIKMK2tZQdlr4OurVMvoEVx b1ZnZJAgLRMkeN3tWADsCM3 zSPBkYMjbWBNhheRken0dkw WtZCIsVIQvI5ZzotfntMexh mVoYUCwjc3mhfMiGUD5VIAw ZSBjbGluaWNhbCBsYWJvcmF 4i8NuILVuf8TlQ4DbtPBpOZ GgvHAmTVJ1w4BwjM3iIBcjy HNqEUEdTU0paOIcDXPkGZVn ZWFyZWQgYnkgdGhlIFVTIEZ cx4MnHF5dOETyyGxnKVVyhD 0um5XqKXDdn02qTXUKTVhoD FRoZSBGREEgaGFzIGRldGVy bWluZWQgdGhhdCBzdWNoIGN oHUScSY7ePDUkcxNwpRMnc0 QvkATelpYdy8TigqHlINXoL FY6CyYvtKHvFNOoddTQlFaa sU1naJ5ku7SiiN4nUPxsctP hlUJbVp0yhFYgYI5hNGMazx FmZmluIGVtYmVkZGVkIHRpc 3G0YI2lDPJxde4usmlwxIOn bK7lkYUhmjUiTS1qCV4gC0U 7tMQiAKMjzpSlb7dhSJo2cA CrCZWzzIFnxRArKeuvTPP0S QVkAOG7atMnqdOeWSTyqVak sWD7tGRuDVFrMCZqYRZdPT5 6K7Cir8ZyF8erHM58FLFeSM UeVBTgfqZvu8lvACQmq4yvR IWjxYYtY4IcDQUapAWxgsaf IaBkXND0TEYpJRJ8cJNxANJ aB6AwhZPesWPucJ74MV1vvD P9ZR0jLWU8BKawvM6nTgSNd H21fb4eoUQ9c9KrMN4zT5Na LYRah8F8ymIrDIMkYS7dfVA iZWVuIHZhbGlkYXRlZCBvbi KaZNOtjJKuRwwhSST7zVFzm TZePfRZUEV1oYObYAQns6Sv ZCBiZSBpbnRlcnByZXRlZCB 1nWQcPRXfcXItl22xD7o9XO 1ccAdyBURebMMxHCQnw4Kdh KIbuRd7nDUmKgGjBWazOMZl ILqibIq0gAB6QQ6fQSHlT3O mU5ntoIMvAAMzDAPekMLwcq 5ccGFyfQ== [facility] Work Phone: Gross Description a6brdMJvHANqjBASNBI9 MDJ dDE3tpObeqBy8kOxdIEKspm T9pVOcDHuab8bnZHU9d0fki oZBOuycFOBvLE1yVProMMBk AU7cXsZqHFGtMqXjPRNmnLB mraLvXsRuETIqoYQukXP4EE JjZF1kwyptEHfpIOtjKHOrw rC3MYVhpERmR4EeGVLeRD5o hakiEPQ8PVHHLurbAh6yeBG ibCANCntcZjFcZmNoYXJzZX SvTMQch2qamfKHsmewhWy0W Mr6QKQeIXZcbXJmz4N7UKwq g0zjg0GdK8Ujy2KgFFq1vI7 MLpheM86cg2O1Pqd2CMDoRY m6AVtyZLHfMCKqFmm3DSn2I 1xyZWQwXGdyZWVuMFxibHVl YBq6RSzoz1YlwSJkFQz6ZSf gMMAsE2GkC1RlKFyqCvIzGM pnYGAlXKWrVMxkYLPdM6IWT FDmVgYaPkW4HhQaIAr3LVhq AeRHRUR2UMKqNyW4DTj2YHR sAQ9aXPikfAZkMVwpOdmuKE ykU948XIltTCAeQ3RpA5RfB FxzZyBcXGlkIDUxMDAyIFxc NNLmY9ZUALOjIdAjGmL5TmL cBRz5TUceW9UYMWFrLWFzXw a9Ros6IzK9PXp6ZNGKSo3lH lVcMtC0GVG6GLA9JcMjKBvv ljnlRJr1LNElQCsvzjWuWGa hDwytYFycO00ztLXxISGHSy xwbGFpblxlcGljTmVzdERvY nWaFMnusEYsbHXmXC4DWSp5 cmNoXGNmMVxmczIwIEEgLSB SjZ4xAKQZaUyzgZOChQObxY WmBL9hZDuwN8HvCKFySTRsb iANClxjZjAgMjUgbUwgIFxw mb46PMJ6q8zwvNZmHLxlEry qpSUwyyR1CGjOXNIGIZuPGo DrSD5nCUiSV5DXZBxXJobdW TpvQfO6DBugtHqhIojrmnIo iRWsJjFAcC8aJRyaKDQswxq 2AXTuTVdxj8wtONNnDAuhr3 ExCEuQGJMIVC8SBP0saZE8I TcBPQXXTXccAGtcGfO2XLqq fXtcZmxkcnNsdCBcJzFDfX1 ykEiahO5kmMKhG6vfViGkPY RsUpt0fLTnihTeAGt0KMCjx 7l8bIFjnvVvgGVbcRHyCD7Q TORgo0OjF4X0ZECdCMdlp4w uESToYSggk7JtFMpWWMDNBX 3KLZ2bfLQ9EZtXSUNNW2vJo CUmQCMhTBjguDH8f6ktxJNe m5z6UBbyEZQ2yRsrVEU4nV1 ZoLB4DUZcCSrio6ttTLImWC wyz8QbWJhPFLYGVM0SZL5hr LU6RIgZYVXQGXyfHXniLmY1 MnwyfXtcZmxkcnNsdCBcJzF GdN6ogVlwtN5tcPBvM0rgSg MyMCAuICAxIGZpeGVkIHNsa MBkULFiFIOhTNYruw6womyr ZCBzbGlkZShzKVxwYXIgDQp nLmxxIcOdOOF9HLVaARfkDG TbLFCgxfWvRcDaZmFrS3LzW GYJFnntRHQRYRbcZEQgx9Er KHMpXHBhciANClxwYXIgDQp cZjJcZnMyMlxwYXIgDQpcc2 EzMFxlcGljWHNhMzAgDQpcd gPSHBVXWDkMK2LxWUYOCWGS XTKoRoMAPE8lIAG3QUEvkXY 6JR3uRVqeEtD2Ry1gPSQNGL DHUVxPDZ4XHRYWIFORJW8YR rFcF1pZQGLUPpSpZNNLGZZW QWIfCfIJRE7pB8rVIQZNJjF uANVSFQXLKFWyWN2ZTVAKBY RQRQ9XVADAA49AYUTMOIEKV 1MQX9iZRHAtc2RTLPHUiEXb sE8adBVBd7zlualhEUbuXhH dzUBnz6CVJLSNfVJrrT2olY EFgAcrfIl5QUcqFMqzIhDvx VIMQGBFBMbPMJPWUb8WGKMS DXUEEB0KNwMaE4KTHL8OKz3 TALZJBNUMWL5GOZrHXwIpE0 GRJR3BUe8KVNXOYEOOHL0EN xHeGKVJB2BHWpBQO0awIDHD GMYMGTUtTeWPKI1bTXJXAQ7 TJAEWGFKHU14VWKAOZFKAX6 LQYU9PJMNaQQDitHATRWD3W X7eXNkjKPWxM0HqM5GyyyF3 MQCafxLGBkaiIyzrnReuc3R jdCBcXHNnIFxcaWQgNTEwMD IgXFxkYiBPVlIgIiAzNTAzN Nw4LrI1RYb2FBLDNoVxJeOr MHTeLci5SZKkYLy9YDt1ROq EWwRcUeY0QhDsFjNpJYL9BC IgXFxuaCBcXHQgMiBcXHNzI JCjFYgtlDWeZM9kuDgwBFLp MW7NUSGgNVgoTUDnfEBPPRF 3VT7eSZIHAdnedZZeEISnd3 YxCkTvRKTlZ5ywOkVqVFQFH lxsdHJjaFxjZjFcZnMyMCBC RN1oRMViMmodJfztkZPxOC1 0KOHeNA0zHKzgG7GbYAWkZF SlsgMJQxosQKVeTKs8wbDap iANClxjZjAgMzUgbUwgIFxw hq76LVO2q1mmwPAtYOobJvp bsDXsyaB3GNkEICZUSAbALy LxGG5pQIhHZ6EPWZyOPeohH WwjNcG8RTiuiBkeEdvjrwXa rZStEcQJxB5daF8ei3qjzGB hNVwaUqpssIThlkT7ILbJIW PCENeUNqFpBB6tUAoZL5NTM cY3WNP0AQSabMJ9XY28KEXo BEWixKLvKJkvN593LDClJUg gQRq5aoCwOHVsCcAlJDLhoB eiBSZpX1WzziYgKVfxwQjeW qP3l2ekTFOdcqEGKnyofr29 ZGR4l6urnLMeSTbuZqwgvLL ikoD4UFtGBMWNLOsNZyRzHB 0iOOhYC9OCQPtUXdewGAzhL zT3LyhqpMblRvopmdZgsXTr BlQGiN1usvGQgYSwGPo4r1h yhILsHZrlVrgewCPofzS4EX rJVCJIJQqVGfVbFZ8oNVjGI 0VXXrH8DWN8HZY2qPH7Fr93 KCQyPSGjkFYhZHepG431LBU bDOscQDg1qrUcJUUaEfXxKn AgMiBmaXhlZCBzbGlkZShzK JedNyTukBMiPHAfGYJfc5hg DQBckjjyoKHsBQ7SQMYzM6L tCW4tvTScwFLobvFByvSbDE QbGRkbMIMjKBGyQLUmB9QED KHyR0MtqEVZkP3srvszUJqp EDYqWIwscIBfGM8RZKLuSYF dUkDiePUdLP0BTQHfAmWtUY KvB9sgPNBuJP3ECLTmN44UD lJXPQOMP89HABUEELWLM5BZ E7dASQKmYJTnS7loTZTlWMN 3HWM0jBH8FDRCTOEBDMcTN5 FhEZYYLCYPIHOrJJ3TMHnOH UUYTGXHV31ZFTJJYBGAW9YZ R1uROYoQZWYSJJJWG40DOYK OICBVF3WIBQDJZXBDIMvUWT ROZz5TCJQPJKFDOL4JRKoQF lBeLEyVNjMyO8o8g1wiD8rm T71em8C3WEA0ZAPpQT6kRQi KOoWwN1e7y0jdG8feAgv8LT IedrF5KHL0ROP3RS5xPRfOL 1IIL4dEEQXtFUHVLAWCPUYg UL2IRYlNTB4XLGAsIOXTCWQ GLYOzNuEZEW9iGJnXDW9WOU ZxBWZLFCZVPLEiMQ2ELMGRV L8KHJLLOONEK47OPHTCVNZY H2HRD2lNVYWAHOJBArJISiC HXX5TCQCXSSBWWD6WGtIXCg r7PFlcvMezDxJedRZgBrV5C IYqnEMyBCV7JE8juZjmLJTn OLx3MOoyTPHxZ6VvL4UcPXq zZyBcXGlkIDUxMDAyIFxcZG JnN9UHGJSmVaAeEqF1DwMfX Lj4OPkrG6WUOENcNYEwArg4 Jnf2TaS5JHp5BTRNUa6eCfL eOcE7NWBkKND1QhTxFXveas afPYu4KQLpQHeylrBkHHioV aioIPniU86onBNkBIFIVnxt bGFpblxlcGljTmVzdERvYzE qVFrwgYTknSDkVWYePHE3QS XdtXYZy9NkFgFmKUkshCImM 8scJ4QiZFHiGjZwLsKjTD2a LUhwr8SmcaJkFEn9zZAyAC1 nNOCnW9HdeHmtlzB3KuiwVk YrTKXxmVBbCM2TSAMhdgXvm PTkvSOkZF3QRKXkCWTmKJGv TCBccHJvdGVjdHtcZmllbGR 3GJbvIuywmD2rkBXHRXLMRh gZLteizuTnJC7GKWEGUpMRV G30AMS8KDXwlYZ4ZM88ZQUv EQThjZJjHEyiW225U5ckQCX 4XULjVOkxv0tzHCEsGHacp2 MiSRfRUAJQMQ7KZY2alLH4J ZwMWRZEVNsvVKkxRlB7NOjo fXtcZmxkcnNsdCBcJzFDfX1 oeTdrcE9ixTAsN1jeNyWjLX WoGAShpHxkGEDvG3SelwFyU VJhjgOWVlebsa63KYE0o9mw kBVoCOrtLpmgtVOtzfK5TWk NEUZYEJaHWjSeGE4aKRtNF8 APEMxAQxshOTvdMwA4Ehoco UnwZvllhaBgnPMoVlVPdX4c jpTMyBEnVZa4n4izrSIqGSt uKujwoPMsilD7TJkKNVHBXX jJQbQhGO5zTLhRW5XEYkZ5I VS5UBW1oJG8Pq19OWIrYWIb kEGlEOzxH085SMQqDTnrWCh 0cmNoXGZzMjAgLiAgMSBmaX hlZCBzbGlkZShzKSwgMSBha TFsLXMxAPGws4lsNUJmanjm iHCsXJ7ZFHUrD9TlPR4blQW yaWFscyBQcmVwYXJlZDogXG IwXGNmMCAgMSBDZWxsIEJsb 2NrKHMpXHBhciANClxwYXIg DQpcZjJcZnMyMlxwYXIgDQp ut6PcLTnifRzmEYNdCxSxSB fixgVYBCWRFFfGI1DuEPNDC MFTPJDyMtRLQL3fWOY4WTPp wWD2HA3wMNbfNpV9Cd3rGXG RNPPCFMxGOQ8CGBBCUGJWXB 2SMgAhB4jLIRVMQaAhFOZQF ARJEEYcNkISMD8sP5aJMEIN XiJePWKGALJRBWFoUD2SQKH SYWWTMY1UOMDBT09WIBSFLB KJF1RIK1yCWEBjl3ZRBFNCt SSzaY1fbQUPl85srIS5OB4s cNdlZOhjHfGfjEZsj1IYHWE YvJZlmL9urCXDbUmhqWg6YG oxMTkwMjRcfSBQTEFDRUhPT VNQAp7VVDANKEJBUC7HZmAc Q7LNJE3WJh3MOENEVDFPGM8 BUMqVMvDtY1GTYE1JPj1RFD PCBNUBDZ9HTnXzULUGL1SPY aKBB8feWTEXTSIKUCKuCnFE CN8nPGDBWK4IDQQMTLCTD17 ZIBOONRHRH8MGTK7SMWXjLY DgsDXXYVT5BU3nNTlgYWOeG 3FgL8OenaF8FJVdfjIDQbrw MlizxWuie6BlaQBsVFWaZGs caWQgNTEwMDIgXFxkYiBPVl ArYyEvPKMpHZb2EmD9PCd6P BAYPsQfQtSjMYKkCeo7LUsh PMc7JZg6MLkTGiUfQrF8Adp nXJziSWQ9GPWmHFrsnSXiEN QgMiBcXHNzIDMgXFxmbCBcX U7tgHvdBMSyIQ3LDYSmMLqk OPWppXFBZYA8VO3oMMTJXtv abVKlRJYsd9TlIpRlGJYvF1 hzYjEzNSANClxsdHJjaFxjZ cEoAcLvWXPIOE1uUYAfnIMr cUkfTWnlBNratSstUp7gKON SaRJ7uK3zSERJJljnIfDrHZ PhyAWlDY9ZZXYdjaMgwXStt JSyBO0LYGWsPIJsPRDzDXKy dRVisVBavPemWwxfiXC1YDa qWttgrI1owIAWUYIFAqbWCt xvscSmMY6IRLQYNhUAKY79W HQ4QLMzyAV5VD64GWYtRFVz tVQcRFgdN236M8gfJRI2FLL hWKykk3arFTBfGCsdu8LnPX aJDUNZMR3IAH7yeWB1WIaGL FTXINiaNDdhAqA6IBhqeZji UpldpiUxpDMyJoWUlR9ihOp qvG7ybOOpA1xoOdIsYOErEJ YmlDabSNWdH0HkldQyLEPjo iVELneorz39IHN3a0hnfDSu KEkyWmjnbKHsebK5DDdOTUI WICxXNzXiAO1lAGvAI0CKYI kHQmuoTQcuUpT5SlmcbRvwH oqjloIxmLNxIlIPoL5lbzWI rOMeNRt0u3rpmKOsGJoeWda knEYvrdX8SGyQWYAUZSkXZg HjRO3lNApGU3TFRpF9VIV3G NG6oNV9Yp15QIWmQNAbdJVi KTpjU437IBJyUUagPYv0gqO oXGZzMjAgLiAgMiBmaXhlZC BzbGlkZShzKSwgMiBhaXItZ FRiSWMwg3lyKTZqyavllXNv CU0WDVGsD7QxAD7rnDMcoCQ scyBQcmVwYXJlZDogXGIwXG CaPIXuCOEGXVyjHJDqx3TiO HMpXHBhciANClxwYXIgDQpc ZiBePcPhQnosFQGkVTkom6V zMFxlcGljWHNhMzAgDQpcdi HFXKJUHCsIL0GnAEXHXWSEQ GFpTzOUOG4kXWD1CNKomWL5 PF0xHQctMoJ8Cv1wFSEAPQS UYOuCKN7AGXQAEFLIHB3VZw YbF6vVDFZILbSmSELZQOWEB ZLvNhPZAM7nT8bWTSJHOmSc UDZCWEEYKOIsGF9MXCITONO NGU9RKBDRY51SUWYMDAUDR3 PMG8hDHPHdz6KLCLCTpNUed I1hrOUGs16hkPM0IK5ndSse YCofQhThyUTin5YRSBWYoIG kzJ2knCPLnHikdHq2TMzlME kwMjRcfSBQTEFDRUhPTERFU a3AAUQIBDZVYO9ABtFsD5UY ZX8MPs1TOWTCMPHNQT1QEMm WHkXxL4HRLN7YPs8QRCCMCD YSTR1LMjMeBQXOW5TUOgOUL 2nuHHBYVDGQAWFrIoEMWO7l YAMJMK6ZIELEICDWC12AASK YMYTRK3EZAY8LLINfYUBgtP SKXDJ2UW5wZArzTUQhM0JyZ 0DjvrT4MDYozkILLqtcAbtx jFigr6XsxTZnVJHdCQasiNG gNTEwMDIgXFxkYiBPVlIgIi SrKLCtJLb2WsE2UFy1BQSQL kXhEuYoVNRoVrl8NAjfZQm3 MVp5TCtEMdRbVuV2DxsdKOI uZSZ3GURnOAlreZWvUWGzRg ZhTTQnYCStGRvxhOGvTO2xd TzvCIGrNS7BIDQzIYadTXZs tMMOTTB4HS6cJAZZDsycmIK wKHLuv6KmLxHaEKBxY0zmOg EzNSANClxsdHJjaFxjZjFcZ nMqIUGRRT5kJZJfeHNbyEpj ZWcrHHpqkWviRo4jPVDIyJB 3xT8lXVEUPnprJpMqMGCczY SwLR8MLOOtoyKojOBucRVsD D2DAZBoREEpVOUcIQZdPUPu z2EwB1L5QAUnYEyco8diXOD hFDedd1AoYXcJJEYEWC5IXY 1sgZM7TCqHQGAVW8wRoSWlG AQwU0husLS0h3oiwSPcv7c5 IKdcELT1hCLidIIsoTpys4h xBbqbwCU3FXncWfjgpV2gyO WOVNPUImnMKhdvctVqRB6BU KRXBB2YtFFqDZArX2nxmKZ5 a8nqnDBlg5l8OPehHVH1mLf wbGFpblxsdHJjaFxmczIwIC BmbHVpZCByZWNlaXZlZFxwY XIgDQpccHJvdGVjdHtcZmll wJZ3RBnoUjtwuB2ibAXDKWX LQyvOVmhqshJlYX1GGPSTQs PDBI81KST4SHN6uXX2Vb00I JCyZSFloBYiSQrgG597tN5y B8m7j0z5lUuzIpceyCP2IJp iCsrkcW8twQYYZCOEHpnWXt zlpeCiMF7KSURKTL0MbMFpC TRfICwksDN1u6uugILni9p4 LTzaIHI6dEpfzUQlekeboXK qeYapfdItBQ2bDDKlTzh4UL Syy0cpLEQhfryoNJMhEEzeN WRyaWVkIHNsaWRlKHMpXHBh ciANClxiXGNmMiBNYXRlcml hbHMgUHJlcGFyZWRcYjBcY2 AsMHXbV6XboNJXoH7gyvtiQ PqvFWInECieiDKxUA4RBVQb JOTsZmLciCKmMN2KEKFtLhE zEOSsK6maUJHzPF2ISTBcA6 6GXkOHKSICW56KGIWLWVGSZ 5SHW0mKGUPmRLBxF0egJRJt XPP4RBB5lDT8VAGIGTGZLSw VX3OaXXIQESEWVJAjCL5QFP bACQZTARGTZ63BIIAKUAHXX 4LLF6fEMTlXXFDBPSIOG32O SKSHLZHDU5LAELPWNSFZUZy DKNKGMl3NVBEILAMJEJ2WMR zKRbCdIWbCByVvI1h4u2obE 0nlC26td8S1NJX2QXBqRO4o FFpKVvGhB5x9t6waM7cqDhe 1SYEiwaP8ZSY8QEE1RI7tJN lBV4HSR5dIYFPyGANMLCVTB IByOE9CWIcAPL1VBLZlNTLZ MUVLLDQrPyGBXM9oFFfXBM5 DVJXuZHUYNVUUQIWrCY4HSM CIMX7NULLLHPUCH10UFTUUB DCEO9JXK1eBLPSGXANDZaZU KdGOVO3TJWNWYLMCBY7WHnT UCkm6XOpruNuvFvJkvLIwBd R1CKDwkZRjYKX8PU1paBfnO MKnIMg2KYepSMVhA2VhC3Yb XFxzZyBcXGlkIDUxMDAyIFx pYMJgF7OJYCAnRvLhBxK2Sf HsAZs0SEbzU1IJWKStMXBjL qr4Rak0JnR8KRk5GQHHKi9h JbZbRfK2ZLUfLVX6NyAdVDa wilqkKXt8CNMjVUobvxIcKO fjNbsnYWztY75swJNcWMLIO lxwbGFpblxlcGljTmVzdERv YzEgDQpcbHRycGFyXHNiMTM 0KGAxiZNCa2HuBfPeXCfbtA JjW4wvJ8KwUDHeTbNqIiAfN T6nFKooq8IqgzXzMWb2fKMs MW5nONXzP8McwRscsbUoWAI 6XGNmMiAgIFxwYXIgDQpccG KwCMnhgJNsPGLfNIdgD8TwB PLdVC2CGRSfjTStlVVpdWrx DpmdsDL5LWudShdexN6xaLL CSDJMXxjEEwrcvtCkVA5HRN LXJaKKOS69IPG3YBPdxMD9W V21SEQiSIUyjQBuUJyvA472 eZbeg2yhWdoxiHC8TFsmGem coB8rfJACGGEHYdtKYyfchp ClFI6PIMVGYM1QrTNoRQOhK 7rebMA6d2tvySEfm8p3WAah CCA4pXclvXCiccxkuFPbmCq mczIwICBmbHVpZCByZWNlaX ZlZFxwYXIgDQpccHJvdGVjd YlqHpngtRL4LKypStewcZ7l dCBIWVBFUkxJTksgbmFtZT1 EOMDVFdKFXS21TKN2FSS8iM E1Qx88DCZmLRLfhLYiPQasT 696qC4pV8a8h8a2fYvsJhfl mIF8TLyfZvcnsO3srKULMEI KUpjJShyqirCrNQ7QJOQQRA 0KmONuSHYzEYhzzWI0j4ead MEml9l9QBemKJS4tQngtWUy xcdmtXUwcRcdtiNyEG3iHWO kArl8XNWob6ouJXSmqwztWU EgYWlyLWRyaWVkIHNsaWRlK HMpXHBhciANClxiXGNmMiBN YXRlcmlhbHMgUHJlcGFyZWQ 2MAmnUAmlNdLlVEKuI5OekA BYuX4vdbueOVhyOAViYLifs FUlMY6KELVjFRDbZsKssQOl WK1DGOGqLfFsGZVsD8ewKMA qAT1SBWKdR35YTrQHPLDYF4 4DBQBEVWNED6RTJ8zIEKVdM QAsA0fnRASvUTS1LSP7yJZ9 WZNYFTYMVNnWA9RqABEBGWM CWQYyIA2MWOpCHWEJISLVG0 1JYDORDJBXD7CBS9dGTUzTI SHYFPHDP67ZGHHHGFGZN1WJ FEZVMHWJKVqVRGIUFc5NDSU URPFTJN2WLCzNTpDmDIpSHu PoP8m6d8luW1beW14kk2V8E WT3SDFmZS9wLJxAAlOjG8p0 m6fwG2bgHtv5GIVhkxD7QNT 7AUA8NR4bTLcVV3IHU8zDJR WwXXOZFLEZYFOwEK5IEOlZJ L7WTEJpIBVIWUZEIZJdEfNK EG4uZSeKNU6TBXQuYAZVAGE GFARhSX2VEYJAPS6HJATXUJ EMI65NOUNHPDMXO9VGC9hNF HSOUSLHUvOQRoDMMS8YZRMW GUAZUS5EAcEPIxw6AOsusFd nIcAvbMAnMfB0RKVpmGMjBT R0MT4ydQsqBMNfCPa6KVbyK TKtP2KfR8MaKDmdQqNlGLvy NYYyBEGuLAnuQDNcZ4CASGT uYkCiTjS9FvNrRKs7VExvJ0 BKPTQnSQPcVqa3FFQ3XlX4R Af9KCWOCi7hTeWzDoU4UmU8 WGW1CzMaHClkvlljNIa9MAS gXFxzcyAzIFxcZmwgXFxuY3 1ccGFyZCANClxwbGFpblxlc GljTmVzdERvYzEgDQpcbHRy dUIrJDPiLEN8LHDilJPOt0W wJjWuHFjyfRRdD9qeN2CwHH ZeSwAoVmEoJFXha63beK2yi ZLvu7cxlonqBlskbGDeLAew PLvnIGdoFeE3GWSuTWDsJAs wYXIgDQpccGFyZFxsdHJwYX IgDQoyNSBtTCBccHJvdGVjd EjrSzfaaUB1IKcdJsabjY7a dCBIWVBFUkxJTksgbmFtZT1 JRUCRCzZQIG65PSZ9IHMbwP B0HV15UDRzNHXrtDAuFSvwZ 872A0qcUWK6UTNoICnzt9ke PCAgWZawt5AgLSaDQHAJZE0 EDN5zkKL1OSjAHUSFYEccBR ygJfU4EBbejCqxCtvbrbIcv KUtPdTKnI5viVvtvS7nqOEa Z3dwFlBqNORxVCPko2GaB9O 8AVUmSPlgi2lwWYOvWJbxr6 ImIOnVBJTQFN9JQO6xmUL1H WmRCUONB9vQqUWoZWPrFJvu wPV8n7vviKIud2p5MOeiNZV 0xEIzpJFapAayn5zmQgukxH A8KUlkLzkdtH4ywVXPVVAAV qrDHshbjjObOK0UEVYMRZ7Q oSAbNJOnZKgavWU4k0kgeLX rs6t1IOifDXC3xLwkjKWrrt xsdHJjaFxmczIwICBmbHVpZ CByZWNlaXZlZCBccHJvdGVj tMllCyawhGC2RCuyUbqyiU2 zdCBIWVBFUkxJTksgbmFtZT 4WLDQWEbUVTB01RQM3SYG5p YH5X333ELXcOVUokMOaHZon B003GeLkd2s2FMRuUNxbu4d nGWCuDIisw9VzYMqZVBSRVB 5FOW6oeMV0JBvEQHLFNVstS LwcTyE3D6qpoEmeUyplwcHi mHFyAgRFhA0etZbmgA1csON uW1cnIfTpYDUaEEcnKGPjOE xfRpvyCyStIQF6OTUwPTsnR FByZXBhcmVkOlxiMFxjZjAg ICBUaGluUHJlcCBhbmQgMSB OWSeoVSQie8HhFREsOIWndw ANClxwYXIgDQpcZjJcZnMyM scuKVGgBVwgr2DsTWrkxKzf WHNhMzAgDQpcdiBTTUFSVEx MR8VuXGJEAQGPJXSjFmOEIG 1yOMN0OHTqtWV8WX8oZJlkH pS1Ru88VcXjSGMkYOzgGIYm I31QUiKSAPAWW09NKRERAKY LL3QHVZIZCKjOA4TNKS7WQD IBWNICMY4WNQxMYrCXXJuQH 9SPVP4JDHRKXYBZGB1DXtMa QJzKD3BGJ2dATNUrYQBOMZO FDLTaDhRUFS6zNDe7Xs2MXI aSRaVTK06EBWJCSR7WGBpiS WrxVvGwfDUmc07CWn9UKG0w V36WJ3R3TPJ4MNP9DP5gOBv KtYPzpM6jwNZNeSzmtBn4TZ oxMTkwMjRcfSBQTEFDRUhPT ICTNa1NHDBOIDXVTX2AMbSe S2RERE0GGz5SIMXFSRHBCN9 NNLjTKyNsW9PQCH1RCo1BAJ KMQATKCX2KTaSkIHFAW8HYZ fZDR4hrSPZNGLOYNJScAqNN SR5xDUGIXI7IHZPBWLAWW51 OIKJQNXUYU6BTOW4HFMNuNQ UpoKZWXWO7UD2vQGsgPIRuT 2SqM6JujxN3PBQteuRPJdht PozcmRkka6FljNQwCWIyMPh caWQgNTEwMDIgXFxkYiBPVl JgDaCzBBPsTKh6BuR3MWd1B SBPVlMgIiAgIDIzNzkwNTci EHv1GXw8VDmKYsYcSuJ8IHB hSBBlZUI5MCUzWNiqmJFcFG QgMiBcXHNzIDMgXFxmbCBcX R4moGxmDWXoPZ1HFSKuQFzi IYXscFRANMX3PG1vWZEABwf dyZDhUEUso4ViAkFqVEVdY0 hzYjEzNSANClxsdHJjaFxjZ aWfCzSfOVBKDO8nPqQnyjAj c6LesdAwxMWmJWMWsTzxuZY Pr8hmycHTa5MdMinfPgVuZV AjnZRaRY9DMOEylgIttWRks ZLnKT0PEQQgtPgyOYYhk0Jl B8S6OXDgWJgqe5euXREkBAw te2TxHJlPWRNGGQ8JKQ1eeY E4HTvWQEKGH7lJuBZaTDYhT 1jexFW4h7ebhNVpb9t9XKun CFH8bJ61H22qRAajNkorsVD 8TKotPchzuZ9sdMHJQBUPPk eFCtgxdoKdLU2UFRWPHC5Dp PYpJWIkV9zrxSX7c0blgJHi k8r4XYjhDPM0fVogvJLmkvn sdHJjaFxmczIwICBccHJvdG JljKhiOggyoTF1AIgtWwofj A6fqCBBEKGQDteLKvqjzmZw KG7AVJVKVgKPWV79ZZB7OWU 8gOL6Fh55CJDbZFXpeYDbEN sjN449zQzts5utWsvmjEI1R WbjSceozQ1roETSFWNFHyuD FluzljLcUN4JXGDVJI9WaXK eMSAdBRsjcUQ8m3zyeUJuq6 l9PAnwABC3pLscuQSknbagr HJjaFxmczIwICBmbHVpZCBy ZWNlaXZlZCBccHJvdGVjdHt fQcsajAF4SMfzTqrruA5isF TSNCRQIhqXWsrsozRpXH7MI XTQKgLQLU71QMA1ACY3wDM8 W166QYFdFDEuqRSmBImeQ40 9BcZnh3i1DBOhUNrql8eeUO DkCHncf2QyRWaYVJWXZC4QJ O5ndRI3QUzYRAQKEMyqHOoa QnI6Q8nqrOixFtlkqhBegTW qApTMgF0arRezgI3iyCCbW2 hcZnMyMCAuIFxwYXIgDQpcY szhFlGzDCE8MNYgOFxiRACq ZXBhcmVkOlxiMFxjZjAgICB UaGluUHJlcCBhbmQgMSBDZW roNXEyn7AsGOJcYXTekjYOG lxwYXIgDQpcZjJcZnMyMlxw VZYiIDliq5PyDJklbRpkBDE hMzAgDQpcdiBTTUFSVExJU1 OyLDPRKSZFBSDvHuQUUU0iV OQ5OZJnaEW9PG5mTTezGdC6 Jl08VhGiHQRpEClcBQCyN11 PWbZJXSGYL75EEWJXPYCEC7 ZXEYAPJVeWU1YWFL5ZRKWLL TNZOG9PYIxVSkOYRUlKJ5BK WC2JCTIHQFJOFA3KRuPmHHy WO1EOL5zNRRSaAEKOAHNXKP WeNtZNZW2jWGz2Rf1ZQKoGB nDEC10VHXFKCG1BYXryUScc GjLuxNUsr49XKu9TMY3wH36 MX6P8BIG1CKZ9US4kFLhGxF BuyZ7baGGBvOocuGp2JTixI TkwMjRcfSBQTEFDRUhPTERF Xa1LCWEGWXRGMN0CWzGiO9J NKX5HMp7PNBWFURHQDW2THA tPCuWjJ4DQAV7ZUo0LKZPYF OAIBK9AVdQnPIKJE4BQBiUK Z0inXGQSUBWZRBMvLuFVVF8 bBKRHEH8RQHUILLBJY29XJU CVEPZAP3IZMN0KPJNuEPSzq EDEPJQ3UK5pOJrmKMCqF7Aw R0FdxxZ4i9jlzTxzc6AzdDI gBC5vbCWsNI1GZYRkojJuMC snnBpfsX9jSSl7 [facility] [employer] Work Phone: Pathology report final diagnosis Narrative c7wqpWKhSBMcnALjYYXiTBk uxjLmCCMkyHDyY3QruvaxET fsGM4bPJ0ajEzyoRMtwPRmO NEsGwIhe6lpx651cYFoe8ad BGYCHIlwJWZTJOi2jDtwR59 bi5Y4GztkF6brJAK8WFmwpq Cygow6ESHddGJ5XDg8WBJiu GVydzEyMjQwXHBhcGVyaDE1 SLClQW2nvppoUDdoKJshSDC ocbU6XAUrkQUvW9PjZURhMR 1oikuhRPC4KKixWFVpUAD0R tCpAASwf7Qhoby6VvOzuBOg ZFxwbGFpblxmczIwXGNmMSB FDDAzCUj2jujqCXVqM9p8TA 2yVSGeMANJf1AwKC8wIMOjq lRbdd8aK6jjWOkqKimiITWK AHMcqUOwFWIppYYpvBZ6PGP mMCAgIFxwYXIgUkFSRSBBVF lQSUNBTCBDRUxMUyBQUkVTR F3RAM6NGZMPN4SDKTRODsQM WRbGLXTDC7VHL0NeDPFobjB XxtSwXWkhIGCyCG63SRBySI AvqnB4lI9cxfF1qXAgZUWqC WI9zYUlJXVpc18ucAlsnQOv kUi8fZEhtMFsVGDafFlxWZK pwUIhk6hxjdMyAPOyw3LiWZ wbekRhtuFemiBtMQEonYd5b BUjuV0qXGYeLMlkBEkfvKru KO6nGUWzLFAgq3QyuHGelJU rEARhTnKJzZIzK7TttJKnST IwgCeqjNRhnk75XZS8AzIdC 4cngzGhVq8sHOBuNKekg4Bv ht5rYkQvNJR0MIFwe5RckAJ bdhUemYbnEFD8IPOpDZnnBC UboE5fV7ToiUifaC0tyVCeq OFcAjPUXZFnZVkzkpKeuI6c p1ckqiAgn9O1RLUUXtBvITN zNjguXHBhclxwYXJkXHBhcl yqBBCyG1KxJPOlRM1sRIKnF stgMcywoAToLO80LXUcAO7z EPAbJWNxCX3hZdJicsProQO sIEZpbmUgTmVlZGxlIEFzcG lyYXRlOlxjZjAgICBccGFyI T9WTxXYQKoVD8ZIJCTlN4JB F7gZXM00KJhLC0JZZiuEUGB VSFEZPIxLYGjAGycEWI7bPA GdkgRRmfVwEYzrMASeXQ97W JLpSDKpwjI6mS7kbdC1aDNx JMQgXAK7aOHmJJVao24nxJb xrFBwQFtyjgclfRFphs8nuT ZqAYQqKNcpF0l9LGgmZxVgC QLwKK31tWCuvcOdxPFlmXEw TBknGI65YRHdoAsgCEWsNNZ mMWhziCrrsFmqV2d5PNUvZW BUaGVyZSBpcyBubyBldmlkZ P6vQBMmAkTzLFypT58oejH4 KEbgONArYJOyYY3czHBxADQ mv3J1DG3swPZjESQgvpdaZL ArR5LeMHRrPF8yUPQkeQAqf DadUFmaNFlsnLqxKs2cSLEM uNA5qT2lJLavUANJfgUlx6C ws66wyFnlnUYCtV9fEW5hDD WrTBOMc9FhadO6VCpsD5FhZ SGtYIFhhxJFYaTZRSmBP10F DhQlP2DZSQRtDRSJDpYJIom KFK6htVOhUUSuMMV3GXYcZR p2lOYnRQ7oEZCfn5RniPisP vTvvWFiBKPqdoroDFWpO6Xv FKPlTS4jAEZxdDRmyXvrRLw hFQcabPhzEa7lOUYJlFB8pS 8dYWWRPY5nLIKohuWyjw3aA 2hpYWwgRmluZSBOZWVkbGUg OPAsuHVmzDH9DYAuSXIxKTv cQZHoYx3HQUnAH50NO5FWFj FUKBGVIN1ZEzjiBF6LFDKNP SCBCT0HVWOBJGuDWWPGLVUI AaOrhAGrBYYrxkwdTQUbX8C zFCTuAH4qVZNqgPKmgMgzJR qbUOhfbBhjBh4wJBQRlNV1b T8pWYKMIQ1jKEJibnGwdx1r Y6khUUpzBskcUEGGNTEazPR pKDCtoPXzzUO3JYBxYFMkCU geXGWhTp8pELRHXZaKTL5KK MKNMIbRAPbHAH4TTOZEBRIv LDTcxiUIIHSbiXU4ICBbqD4 szGGxw7GjJJVydAApTR8kUL BhclxwYXJccGFyXGNmMSBGI VCwIT4jYHshi0DtpzThKHj9 sWAxPI3dIXBbE0JkdGtjdjY wPOMuWJFJazLlq5Rzj27pmF xwaQJNqQ7pQT9sNXOkJJEDd 1LgqeC3WMqaZ8WoBOOaAQUf uvUANmWOCXuCW22LMrUbJ1T FSTNqYAVXOqTVItjXWV7bvM HwVOXiSYG5SJRiWPa0yGKgN Z2aUJXfh5NsqSjpJvFwhFYj JJUzekgkJLAvS6YaFHlgNE6 iYqUufgDza9NpmmSocQNjTJ XOqZillDBZsAXboUIhKQ0sT WSmCMNsb77waB2zlEKvf6yw uzGQNTIzW0EsQNQ6uT3we3u 5OlxjZjAgICBccGFyIFJBUk KeYJMQWGyVWLkjU4CKXTQyT VPPY1OWTUILAmEIChCPNaII GI3cL8kMBnnJCHHNWtTTPcl vMIErFt6kB6oCHumAFNEPTw MuYSfEGp8UCpkJQrbFGDBwQ 1YlRbyCWZsiK3JBBAKAHLVs E9dRSrlXEtBYOOXNKDsLJQI KYjRheCIhURO8Ks2feFesQU srp1BoD2jgYA6sZ55utKPku jzsBtNxYPixPHj2ZM9bYTQo zCLzhv8dzXGcFNCgXMekVVV wzQrztMIak2tyidFdfFOrAX adBOM3N5Kew0d0VHWsLPXqo HKqcT7zaFDekyBnpgVlVBSy fTFmLHzeAXfrD08orFDrtF9 hbnRzLCBvYnNjdXJpbmcgYm kbi8HtFH13G79xcMC9gMGoj YFicWFfIRPfNX8iNTP3Y4Jk c4y1DQCiDWbgrxYsRZWtzzG iX3OqyUWzyOZhG2PoQhGhsW JjVORqyljpZPJhZ1IvEXthX M6kBdJzklUkv8OjggFjfCTh LRYTnGwanNLAb5zurgSZx2W qOY5rNlAwmbVqy6JajhXbbR VsUUznyjHqJZetR9m3x9kbG 0n6AFMzRPHiQTnlCIBdOsID RSBBVFlQSUNBTCBDRUxMUyB RCvRXRH3BBQ1CTHTGV9YDQX RSWyCKWTgGNQHEF7UTS7DcT HBhciBGYXZvciByZWFjdGl2 EZBlxa3oR9lcKTcoN9MkkNI uXHBhciBOTyBTSUdOSUZJQ0 ICHHKTKQOQI02HG7QEDFCKZ yBPUiBWSVJBTCBDRUxMVUxB WpFZCGSZQ4QDYVhAGC4IEST JRUQuIFxwYXIgQWRlcXVhdG Mhr7EvF2ctPZ1rR66poETzc mluZyA+VQiwBAYgiROdx6du hbLhXPUgw5JgPEmhyd0bUNX hclxwYXJ9 [facility] [employer] Work Phone: Rapid Assessment u8zbqDRnJXMwdSPfAVAh NVx ttrVtXLJqeRPhA9FxxbtrKF viQB6sML6orXwckFWowPXwJ PAcOwRly8djr178cQEdw0fd IFVVXLsmIUVYJQg3lTfyZ44 gs6G2HvnyL29qrLQnAKD8IL FzOUJmdIDtNTIwWQU1MMKzu QEwT9zgGOKzXY5pxqhpIMtc UUlcZIYgqOQ1TPVieHQhF4J iKCYnIIznATXyvrg5KqVgVc 9vdGVyeTcyMFxwYXJkXHBsY WluXGZzMjAgUGFydCBBOiBQ PDOtZQBaGwGgSB3gUZDvkz6 sfWMbAFYcYO8pVPJup79pmF ofnYPsEUyfkl0zjOLxDRObo tNoHhxvOKGevyQyHU0xYrC7 JLPhe13coHxbjBXaVTinkr8 sLXEltiQeTQ2bPyBkrqDigS OgZFAizTlhXXMpOWLxo1BfU UhjbtQnxkEgCWOhaB8lcPLq SPW7jCfiLDjuU4LisOVaQ4U hXNU7wAPuDS5oLSRocwLsZB 4biHJdjv6ikWPfAHHcSV0cO JZePfB8CPu2gJSda2K1rIBt LlxwYXIgUGFydCBDOiBQYXN iUYFlAAZxJSIixER4EDYmcL 5seF5uqSGfei7reDNcSYTlp nQgRDogUGFzcyAxICYgMiAt IEluYWRlcXVhdGUuXHBhciB VAIY9HFT5QGIli2MlDTCnTH Cufxqmy7SzagVdgWszdRssO 5k5LSZgMIVayhTIPGY4AEE3 BBRap7WmUWQdEKFnELR2ZUS uQSi6kBHml1T7xLMlFfZfpP EvQQ1dz8o7IALdxnTrluTcI MRtlPfhsrDoaJKOci5aS1Sm ROLqwGBbqY5oJGYqyf7= [employer] Work Phone: [employer] Work Phone: No Panel Informationon 10-06 Interpretation and review of laboratory results Abnormal [facility] [employer] Performed by: [facility], [address] [facility] [address] CLIA ID: [id number] [facility] [employer] [facility] [employer] Interpretation and review of laboratory results Abnormal [facility] [employer] Performed by: [facility], [address] [facility] [address] CLIA ID: [id number] [facility] [employer] [facility] Interpretation and review of laboratory results Abnormal [facility] [employer] Performed by: [facility] [place], [address] [place] [id number] CLIA ID: [id number] [facility] Radiology Study observation (narrative) Riya Baron alth Radiology Study observation (narrative) [facility] Rad[facility] Study observation (narrative) Riya Baron alth XR Chest Single viewon 10-06 Radiology Study observation (narrative) Riya estes Frontal chest view shows the tip of newly placed smallbore right chest tube overlying the right chest apex. Previously described right pneumothorax have significantly decreased and there is no appreciable/definite pneumothorax at this time. There is slightly blunted right costophrenic angle that could reflect minimal effusion. Both lungs show interstitial prominence with bilateral basilar linear atelectasis. There are also focal nodular lung opacities, particularly in the in the right base probably related to nodular lesions described on 08/24/2023 CT and 09/17/2023 PET/CT (CT more sensitive). Right basilar surgical clips noted. The heart is normal in size. There are atherosclerotic calcifications. There is no mediastinal widening or other significant change from 10/05/2023. Report Dictated on Electronically Signed By: Shavon De MD Electronically Signed Date/Time: 10/06/2023 2:55 PM [facility] Patient Name: ROLANDO PETERS : 1945 Exam Date/Time: 10/06/2023 08:52 Procedure: XR CHEST 1 VIEW Ordering Provider: ZIMMER JONATHAN Reason For Exam: PNEUMOTHORAX CHEST (Frontal View) History: Pneumothorax, follow-up Comparison: 10/05/2023 [facility] Shavon De MD - 10/06/2023 Patient Name: ROLANDO PETERS : 1945 Exam Date/Time: 10/06/2023 08:52 Procedure: XR CHEST 1 VIEW Ordering Provider: ZIMMER JONATHAN Reason For Exam: PNEUMOTHORAX CHEST (Frontal View) History: Pneumothorax, follow-up Comparison: 10/05/2023 IMPRESSION: Frontal chest view shows the tip of newly placed smallbore right chest tube overlying the right chest apex. Previously described right pneumothorax have significantly decreased and there is no appreciable/definite pneumothorax at this time. There is slightly blunted right costophrenic angle that could reflect minimal effusion. Both lungs show interstitial prominence with bilateral basilar linear atelectasis. There are also focal nodular lung opacities, particularly in the in the right base probably related to nodular lesions described on 08/24/2023 CT and 09/17/2023 PET/CT (CT more sensitive). Right basilar surgical clips noted. The heart is normal in size. There are atherosclerotic calcifications. There is no mediastinal widening or other significant change from 10/05/2023. Report Dictated on Electronically Signed By: Shavon De MD Electronically Signed Date/Time: 10/06/2023 2:55 PM EST [facility] Radiology Study observation (narrative) [facility] XR Chest Single viewOrdered By: Shavon De on 10-06-2023 [facility] Work Phone: Basic metabolic 1998 panelon 10-05-2023 Anion gap [Moles/Vol] 7 mmol/L 3 - 13 mmol/L [facility] Calcium [Mass/Vol] 8.3 mg/dL Low 8.4 - 10. 4 mg/dL [facility] Chloride [Moles/Vol] 107 mmol/L 98 - 10 7 mmol/L [facility] CO2 [Moles/Vol] 24 mmol/L 22 - 30 mmol/L [facility] Creatinine [Mass/Vol] 0.71 mg/dL 0.52 - 1.04 mg/dL [facility] GFR/1.73 sq M.predicted MDRD (S/P/Bld) [Vol rate/Area] 87.7 mL/min/{1.73_m2} - PINF [facility] th Comment on above: Calculation based on the Chronic Kidney Disease Epidemiology Collaboration (CKD-EPI) equation refit without adjustment for race Glucose [Mass/Vol] 150 mg/dL High 70 - 100 mg/dL [facility] Interpretation and review of laboratory results Abnormal [facility] Potassium [Moles/Vol] 4.2 mmol/L 3.5 - 5.1 mmol/L [facility] Sodium [Moles/Vol] 137 mmol/L 135 - 145 mmol/L [facility] Urea nitrogen [Mass/Vol] 16 mg/dL 7 - 17 mg/dL [facility] CBC W Auto Differential pane l (Bld)Ordered By: Morena Godwin on 10-05-2023 Basophils (Bld) [#/Vol] 0.0 10*3/uL 0.0 - 0.2 10*3/uL [facility] Basophils/100 WBC (Bld) 0.6 % 0.0 - 2.0 % [facility] Eosinophils (Bld) [#/Vol] 0.1 10*3/uL 0.0 - 0.5 10*3/uL [facility] Eosinophils/100 WBC (Bld) 1.2 % 1.0 - 6.0 % [facility] Erythrocyte distribution width (RBC) [Ratio] 13.8 % 11.5 - 14.5 % [facility] Hematocrit (Bld) [Volume fraction] 36.8 % 35.0 - 47.0 % [facility] Hemoglobin (Bld) [Mass/Vol] 12.2 g/dL 11.7 - 16.0 g/dL [facility] Interpretation and review of laboratory results Abnormal [facility] Lymphocytes (Bld) [#/Vol] 0.5 10*3/uL Low 1.0 - 4.3 10*3/uL [facility] Lymphocytes/100 WBC (Bld) 9.7 % Low 20.0 - 40.0 % [facility] MCH (RBC) [Entitic mass] 30.9 pg 26.0 - 34.0 pg [facility] MCHC (RBC) [Mass/Vol] 33.0 % 32.0 - 36.0 % [facility] MCV (RBC) [Entitic vol] 93.6 fL 80.0 - 98.0 fL [facility] Monocytes (Bld) [#/Vol] 0.2 10*3/uL 0.0 - 0.8 10*3/uL [facility] Monocytes/100 WBC (Bld) 4.3 % 2.0 - 10.0 % [facility] Neutrophils (Bld) [#/Vol] 4.7 10*3/uL 1.8 - 7.0 10*3/uL [facility] Neutrophils/100 WBC (Bld) 84.2 % High 40.0 - 80.0 % [facility] Nucleated RBC/100 WBC (Bld) [Ratio] 0.0 % [employer] Platelet mean volume (Bld) [Entitic vol] 7.9 fL 7.4 - 12.4 fL [employer] Platelets (Bld) [#/Vol] 159 10*3/uL 140 - 440 10*3/uL [employer] RBC (Bld) [#/Vol] 3.93 10*6/uL 3.8 - 5.20 10*6/uL [employer] WBC (Bld) [#/Vol] 5.5 10*3/uL 3.6 - 10.7 10*3/uL [facility] [employer] [facility] CT Guidance for placement of tube in [place] 10-05-2023 Right-sided 10 Togolese chest tube placement with near complete resolution of pneumothorax on postprocedural imaging. Plan: Patient transported from department with chest tube to [facility] one way valve. _ PROCEDURE SUMMARY: - Percutaneous pleural drainage with insertion of indwelling catheter under CT guidance - Additional procedure(s): None PROCEDURE DETAILS: Pre-procedure Consent: Informed consent for the procedure including risks, benefits and alternatives was obtained and time-out was performed prior to the procedure. Preparation: The site was prepared and draped using maximal sterile barrier technique including cutaneous antisepsis. Anesthesia/sedation Moderate sedation was provided under my supervision with patient monitored by a trained radiology nurse. Total sedation time of 20 minutes. Chest tube placement The patient was positioned supine. Initial imaging was performed. Local anesthesia was administered. The pleural space was accessed using trocar technique and a drainage catheter was placed. Position of the drainage catheter within the pleural space was confirmed. - Initial imaging findings: Small to moderate right apical pneumothorax - Drainage catheter placed: 10 Togolese chest tube - External catheter securement: Non-absorbable suture and adhesive anchoring device - Post-drainage imaging findings: Drainage catheter appropriately positioned within the pleural space. Near-complete resolution of pneumothorax. Contrast Contrast agent: None Contrast volume (mL): [address] dose length product (mGy-cm): 191.2 Additional Details Additional description of procedure: None Equipment details: None Specimens removed: Aspirated fluid was not sent for analysis. Estimated blood loss (mL): Less than 10 Report Dictated on Electronically Signed By: Fay Rosario DR Electronically Signed Date/Time: 10/05/2023 2:21 PM [facility] Patient Name: ROLANDO PETERS : 1945 Exam Date/Time: 10/05/2023 13:59 Procedure: CT GUIDED CHEST TUBE PLACEMENT Ordering Provider: ARANA CHELSEA Reason For Exam: R pneumothorax s/p bronchoscopy with biopsies PROCEDURE: Chest tube placement Procedural Personnel Attending physician(s): Fay Rosario DR Indication: Pneumothorax Additional clinical history: None Complications: No immediate complications. [facility] Fay Rosario MD - 10/05/2023 Patient Name: ROLANDO PETERS : 1945 Exam Date/Time: 10/05/2023 13:59 Procedure: CT GUIDED CHEST TUBE PLACEMENT Ordering Provider: ARANA CHELSEA Reason For Exam: R pneumothorax s/p bronchoscopy with biopsies PROCEDURE: Chest tube placement Procedural Personnel Attending physician(s): Fay Rosario DR Indication: Pneumothorax Additional clinical history: None Complications: No immediate complications. IMPRESSION: Right-sided 10 Togolese chest tube placement with near complete resolution of pneumothorax on postprocedural imaging. Plan: Patient transported from department with chest tube to [facility] one way valve. _ PROCEDURE SUMMARY: - Percutaneous pleural drainage with insertion of indwelling catheter under CT guidance - Additional procedure(s): None PROCEDURE DETAILS: Pre-procedure Consent: Informed consent for the procedure including risks, benefits and alternatives was obtained and time-out was performed prior to the procedure. Preparation: The site was prepared and draped using maximal sterile barrier technique including cutaneous antisepsis. Anesthesia/sedation Moderate sedation was provided under my supervision with patient monitored by a trained radiology nurse. Total sedation time of 20 minutes. Chest tube placement The patient was positioned supine. Initial imaging was performed. Local anesthesia was administered. The pleural space was accessed using trocar technique and a drainage catheter was placed. Position of the drainage catheter within the pleural space was confirmed. - Initial imaging findings: Small to moderate right apical pneumothorax - Drainage catheter placed: 10 Togolese chest tube - External catheter securement: Non-absorbable suture and adhesive anchoring device - Post-drainage imaging findings: Drainage catheter appropriately positioned within the pleural space. Near-complete resolution of pneumothorax. Contrast Contrast agent: None Contrast volume (mL): [address] dose length product (mGy-cm): 191.2 Additional Details Additional description of procedure: None Equipment details: None Specimens removed: Aspirated fluid was not sent for analysis. Estimated blood loss (mL): Less than 10 Report Dictated on Electronically Signed By: Fay Rsoario DR Electronically Signed Date/Time: 10/05/2023 2:21 PM EST [facility] Fungus identified Fungus sta in Nom (Unsp spec)Ordered By: Jill Bates on 10-05-2023 Calcofluor White Stain Result No fungal elements seen [facility] alth Reference Range: No fungal elements seen [facility] Fungus identified Fungus sta in Nom (Unsp spec)on 10-05-2023 Calcofluor White Stain Result No fungal elements seen [facility] Reference Range: No fungal elements seen [facility] Calcofluor White Stain Result No fungal elements seen [facility] Reference Range: No fungal elements seen [facility] Calcofluor White Stain Result No fungal elements seen [facility] Reference Range: No fungal elements seen [facility] LaboratoryOrdered By: Zena Riddle on 10-05-2023 Fluid Nom (Body fld) Other (See Comment) [facility] Comment on above: Bronch wash [facility] Laboratory - Chemistry and C hemistry - challengeon 10-05-2023 Glucose [Mass/Vol] 167 mg/dL High 70 - 100 mg/dL [facility] Glucose [Mass/Vol] 150 mg/dL High 70 - 100 mg/dL [facility] Glucose [Mass/Vol] 107 mg/dL High 70 - 100 mg/dL [facility] Laboratory - Coagulationon 0 10-05-2023 PT Coag (Bld) [Time] 10.7 s 9.0 - 12.0 s [facility] Laboratory - Hematology and Cell countsOrdered By: Rashi Riddle on 10-05-2023 RBC Manual cnt (Body fld) [#/Vol] 1345 RBC/uL [facility] WBC Manual cnt (Body fld) [#/Vol] 4 NINF [facility] No Panel Informationon 10-05 Interpretation and review of laboratory results Abnormal [facility] Performed by: [facility], [address] [facility] [address] CLIA ID: [id number] [facility] Interpretation and review of laboratory results Abnormal [facility] Performed by: [facility], [address] [facility], [facility] [address] CLIA ID: [id number] [facility] Interpretation and review of laboratory results Abnormal [facility] Performed by: [facility], [address] [facility], [facility] [address] CLIA ID: [id number] [facility] There is no interpretation needed for this exam. IMAGING Radiology Study observation (narrative) [facility] No Panel InformationOrdered By: Rashi Riddle on 10-05-2023 [facility] PT Coag (Bld) [Time]on 10-05 INR Coag (PPP) [Relative time] 1.0 {INR} 0.9 - 1.1 [facility] Comment on above: Recommended Anticoag ulant Therapy: SEE BELOW ----- INR of 2.0 - 3.0 : - Prophylaxis of Venous Thrombosis (high-risk surgery) - Treatment of Venous Thrombosis - Treatment of Pulmonary Embolism (Includes tissue heart valves, Acute Myocardial Infarction to prevent systemic embolism, Valvular Heart Disease, and Atrial Fibrillation) ----- INR of 2.5 - 3.5 : - Mechanical Prosthetic Valves (high risk) - If oral anticoagulant therapy is used to prevent Myocardial Infarction Interpretation and review of laboratory results Normal [facility] Respiratory pathogens DNA an d RNA panel CYNDI+non-probe (Lower resp)on 10-05-2023 Acinetobacter baumannii complex Not detected Not Detected [facility] Adenovirus Not detected Not Detected [facility] Chlamydia pneumoniae Not detected Not Detected [facility] Enterobacter cloacae complex Not detected Not Detected [facility] Escherichia coli Not detected Not Detected [facility] FLUAV RNA CYNDI+non-probe Ql (Lower resp) Not detected Not Detected [facility] FLUBV RNA CYNDI+non-probe Ql (Lower resp) Not detected Not Detected [facility] Haemophilus influenzae Not detected Not Detecte d [facility] Human Metapneumovirus Not detected Not Detected [facility] Human Rhinovirus/Enterovirus Not detected Not Detected [facility] Interpretation and review of laboratory results Normal [facility] Klebsiella (Enterobacter) aerogenes Not detected Not Detected [facility] Klebsiella oxytoca Not detected Not Detected [facility] Klebsiella pneumoniae Not detected Not Detected [facility] Legionella pneumophila Not detected Not Detecte d [facility] Moraxella catarrhalis Not detected Not Detected [facility] Mycoplasma pneumoniae Not detected Not Detected [facility] Parainfluenza virus Not detected Not Detected [facility] Proteus spp Not detected Not Detected [facility] Pseudomonas aeruginosa Not detected Not Detecte d [facility] RSV RNA CYNDI+probe Ql (Resp) Not detected Not Detected [facility] S. agalactiae Org specific cx Ql (Vag fld) Not detected Not Detected [facility] SARS-CoV-2 (COVID-19) RNA CYNDI+non-probe Ql (Nph) Not detected Not Detected [facility] SARS-CoV-2 (COVID-19) RNA CYNDI+probe Ql (Unsp spec) Methodology: Multiplex PCR This panel does not test for SARS-CoV-2 (Covid-19). The following antimicrobial resistance gene is reported if the appropriate organism is detected: mecA. The following antimicrobial resistance genes are reported if detected and the appropriate organisms are detected: CTX-M, IMP, KPC, NDM, OXA-48-like, and VIM. [facility] Serratia marcescens Not detected Not Detected [facility] Staphylococcus aureus Not detected Not Detected [facility] Streptococcus pneumoniae Not detected Not Detected [facility] Streptococcus pyogenes Not detected Not Detecte d [facility] XR Chest Single viewon 10-05 1. Small to moderate right apical pneumothorax. Pulmonary team aware of this finding at time of interpretation. 2. Patchy right basilar pulmonary infiltrates. Report Dictated on Electronically Signed By: Fay Rosario DR Electronically Signed Date/Time: 10/05/2023 10:57 AM [facility] Patient Name: ROLANDO PETERS : 1945 Exam Date/Time: 10/05/2023 11:26 Procedure: XR CHEST 1 VIEW Ordering Provider: ARANA CHELSEA Reason For Exam: S/p bronchoscopy Clinical History: S/p bronchoscopy Comparison: 11/17/2011 Technique: Single AP radiograph of the chest. Findings: Small to moderate right apical pneumothorax measuring approximately 4.3 cm to the apex of the right pleural space. Cardiomediastinal silhouette and pulmonary vasculature are within normal limits. Patchy right basilar pulmonary infiltrates. Surgical clips overlying the right lower lung. [facility] Fay Rosario MD - 10/05/2023 Patient Name: ROLANDO PETERS : 1945 Exam Date/Time: 10/05/2023 11:26 Procedure: XR CHEST 1 VIEW Ordering Provider: ARANA CHELSEA Reason For Exam: S/p bronchoscopy Clinical History: S/p bronchoscopy Comparison: 11/17/2011 Technique: Single AP radiograph of the chest. Findings: Small to moderate right apical pneumothorax measuring approximately 4.3 cm to the apex of the right pleural space. Cardiomediastinal silhouette and pulmonary vasculature are within normal limits. Patchy right basilar pulmonary infiltrates. Surgical clips overlying the right lower lung. IMPRESSION: 1. Small to moderate right apical pneumothorax. Pulmonary team aware of this finding at time of interpretation. 2. Patchy right basilar pulmonary infiltrates. Report Dictated on Electronically Signed By: Fay Rosario DR Electronically Signed Date/Time: 10/05/2023 10:57 AM EST [facility] XR Chest Single viewOrdered By: Fay Rosario on 10-05-2023 [facility] Work Phone: PET+CT Bone from skull base to mid-thigh W 18F-[id number] Guido 02-01-2024 1 cm irregular nodular density within the lateral aspect of the right upper lobe on the low-dose CT images demonstrates intense FDG accumulation, consistent with malignancy. A 7 mm nodular density within the anteromedial right lower lobe also demonstrates abnormal FDG accumulation, suspicious for malignancy. A streaky density within the left lower lobe on the low-dose CT images demonstrates mild FDG accumulation, less than typically expected for malignancy. A small, somewhat streaky nodular density within the medial aspect of the right lower lobe also demonstrates mild FDG uptake. There is a linear density at the posterior aspect of the left lung apex which demonstrate mild to moderate FDG accumulation which is nonspecific, however the linear configuration of this area is more suggestive of an inflammatory etiology. CT follow-up of these findings is recommended. No evidence of regional edmond or distant metastatic disease. Report Dictated on Electronically Signed By: Rosalee Ramos MD Electronically Signed Date/Time: 09/17/2023 3:51 PM [facility] Patient Name: ROLANDO PETERS : 1945 [facility]#: [id number] Exam Date/Time: 09/17/2023 12:37 Procedure: PET/CT SKULL BASE TO MID THIGH Ordering Provider: MARCUS GREG Reason For Exam: Lung nodules, multiple PET/CT CLINICAL INDICATION: SPN Following the intravenous administration of 11.1 mCi of fluorine-18 fluorodeoxyglucose (FDG) a PET scan of the torso was acquired after an approximately one hour delay. Blood glucose level at the time of injection was 117 mg/dl. Contemporaneously, noncontrast axial CT images were obtained using low dose technique. The images were reconstructed in three orthogonal planes and digitally coregistered. The CT data was used for attenuation correction as well. Dose reduction was employed with automated exposure control. COMPARISON: CT chest dated 08/24/2023 NECK AND CHEST: There is intense (maximal SUV 7.2) FDG accumulation within the lateral aspect of the right upper lobe which corresponds to an irregular nodular density on the low-dose CT images measuring up to approximately 1 cm diameter. The intensity of uptake is consistent with malignancy. A smaller irregular nodular density within the medial aspect of the right lower lobe on axial image 135 of 300 also demonstrate abnormally increased FDG uptake (maximal SUV 4.9), suspicious for malignancy. This nodule measures approximately 7 mm in greatest diameter on the low-dose CT images. There is an irregular streaky density within the left lower lobe which demonstrate mild FDG uptake (maximal SUV 2.1), less than typically expected for malignancy. A small nodular density within the medial aspect of the right lower lobe on image 107 also demonstrates mild FDG accumulation (maximal SUV 2.1). Streaky density at the posterior aspect of the left lung apex demonstrates mild to moderate FDG uptake (maximal SUV 3.2), nonspecific. Emphysematous changes are noted within the lungs. No FDG avid lymphadenopathy is identified within the neck or the chest ABDOMEN AND PELVIS: No abnormal FDG accumulation is seen within the abdomen or pelvis. MUSCULOSKELETAL: Unremarkable. No evidence of osseous metastatic disease. [facility] Rosalee Ramos MD - 09/17/2023 [facility] Name: [facility] 1945 [id number] Exam Date/Time: 09/17/2023 12:37 Procedure: PET/CT SKULL BASE TO MID THIGH Ordering Provider: MARCUS GREG Reason For Exam: Lung nodules, multiple PET/CT CLINICAL INDICATION: SPN Following the intravenous administration of 11.1 mCi of fluorine-18 fluorodeoxyglucose (FDG) a PET scan of the torso was acquired after an approximately one hour delay. Blood glucose level at the time of injection was 117 mg/dl. Contemporaneously, noncontrast axial CT images were obtained using low dose technique. The images were reconstructed in three orthogonal planes and digitally coregistered. The CT data was used for attenuation correction as well. Dose reduction was employed with automated exposure control. COMPARISON: CT chest dated 08/24/2023 NECK AND CHEST: There is intense (maximal SUV 7.2) FDG accumulation within the lateral aspect of the right upper lobe which corresponds to an irregular nodular density on the low-dose CT images measuring up to approximately 1 cm diameter. The intensity of uptake is consistent with malignancy. A smaller irregular nodular density within the medial aspect of the right lower lobe on axial image 135 of 300 also demonstrate abnormally increased FDG uptake (maximal SUV 4.9), suspicious for malignancy. This nodule measures approximately 7 mm in greatest diameter on the low-dose CT images. There is an irregular streaky density within the left lower lobe which demonstrate mild FDG uptake (maximal SUV 2.1), less than typically expected for malignancy. A small nodular density within the medial aspect of the right lower lobe on image 107 also demonstrates mild FDG accumulation (maximal SUV 2.1). Streaky density at the posterior aspect of the left lung apex demonstrates mild to moderate FDG uptake (maximal SUV 3.2), nonspecific. Emphysematous changes are noted within the lungs. No FDG avid lymphadenopathy is identified within the neck or the chest ABDOMEN AND PELVIS: No abnormal FDG accumulation is seen within the abdomen or pelvis. MUSCULOSKELETAL: Unremarkable. No evidence of osseous metastatic disease. IMPRESSION: 1 cm irregular nodular density within the lateral aspect of the right upper lobe on the low-dose CT images demonstrates intense FDG accumulation, consistent with malignancy. A 7 mm nodular density within the anteromedial right lower lobe also demonstrates abnormal FDG accumulation, suspicious for malignancy. A streaky density within the left lower lobe on the low-dose CT images demonstrates mild FDG accumulation, less than typically expected for malignancy. A small, somewhat streaky nodular density within the medial aspect of the right lower lobe also demonstrates mild FDG uptake. There is a linear density at the posterior aspect of the left lung apex which demonstrate mild to moderate FDG accumulation which is nonspecific, however the linear configuration of this area is more suggestive of an inflammatory etiology. CT follow-up of these findings is recommended. No evidence of regional edmond or distant metastatic disease. Report Dictated on Electronically Signed By: Rosalee Ramos MD Electronically Signed Date/Time: 09/17/2023 3:51 PM EST [facility] Radiology Study observation (narrative) [facility] PET+CT Bone from skull base to mid-thigh W 18F-NaF IVOrdered By: Rosalee Ramos on 09-17-2023 [facility] XR SCOLI 4V PA/LATX2/SIDEBND SNDon 09-03-2023 XR SCOLI 4V PA/LATX2/SIDEBND SND * * *Final Report* * * DATE OF EXAM: Sep 03 2023 3:10PM [id number] [id number] - XR SCOLI 4V PA/LATX2/SIDEBND SND / PROCEDURE REASON: SPINAL STENOSIS M48.061 * * * * Physician Interpretation * * * * SCOLIOSIS Clinical Statement: Spinal stenosis. Comparison: None. FINDINGS: Standing AP and lateral views of the entire spine along with lateral bending views were obtained. There are 12 rib-bearing thoracic and 5 lumbar-type vertebral bodies, with the L4-L5 disc space at the level of the iliac crest. Normal thoracic kyphosis and lumbar lordosis. The vertebral body heights are maintained. There is minimal anterolisthesis of L3 with respect to L2 and L4. Otherwise, normal sagittal alignment. There is endplate spurring at multiple levels. There is a minimal leftward curvature of the thoracic spine, less than 5 degrees. Neutral sagittal balance. Multiple surgical clips noted in the right breast, right neck, abdomen and pelvis There is extensive thoracic and abdominal aortoiliac atherosclerotic calcifications. IMPRESSION: Minimal leftward curvature the thoracic spine, less than 5 degrees. Neutral sagittal balance. Employee Benefits Administrator: VALERIANO Transcribe Date/Time: Sep 04 2023 10:46A Dictated by : JEREL PRUETT MD This examination was interpreted and the report reviewed and electronically signed by: JEREL PRUETT MD on Sep 04 2023 10:56AM EST [id number] Normal [facility] ECG 12 leadon 05-07-2023 Sinus Rhythm WITHIN NORMAL LIMITS [facility] RENAL FUNCTION PANELon 02-19 Albumin [Mass/Vol] 4.2 g/dL Normal 3.4 - 5.0 [facility] Comment on above: Performed By: #### R ENAL #### [facility] [address] [place] [address] Anion gap [Moles/Vol] 17 mmol/L Normal 10 - 20 [facility] Comment on above: Performed By: #### R ENAL #### [facility] [address] [place] [address] Calcium [Mass/Vol] 9.5 mg/dL Normal 8.6 - 10.6 [facility] Comment on above: Performed By: #### R ENAL #### [facility] [address] [place] [address] Chloride [Moles/Vol] 102 mmol/L Normal 98 - 107 [facility] Comment on above: Performed By: #### R ENAL #### [facility] [address] [place] [address] Creatinine [Mass/Vol] 0.77 mg/dL Normal 0.50 - 1.05 [facility] Comment on above: Performed By: #### R ENAL #### [facility] [address] [place] [address] GFR/1.73 sq M.predicted among non-blacks MDRD (S/P/Bld) [Vol rate/Area] 79 mL/min/{1.73_m2} Normal >90 [facility] Comment on above: Result Comment: CALC ULATIONS OF ESTIMATED GFR ARE PERFORMED USING THE 2020 CKD-EPI STUDY REFIT EQUATION WITHOUT THE RACE VARIABLE FOR THE IDMS-TRACEABLE CREATININE METHODS. https://jasn.asnjournals.org/content/early//ASN.2020 415955 Performed By: #### R ENAL #### [facility] [address] [place] [address] Glucose [Mass/Vol] 94 mg/dL Normal 74 - 99 [facility] Comment on above: Performed By: #### R ENAL #### [facility] [address] [place] [address] HCO3 (Bld) [Moles/Vol] 23 mmol/L Normal 21 - 32 [facility] Comment on above: Performed By: #### R ENAL #### [facility] [address] [place] [address] Phosphate [Mass/Vol] 4.4 mg/dL Normal 2.5 - 4.9 [facility] Comment on above: Result Comment: The performance characteristics of phosphorus testing in heparinized plasma have been validated by the individual laboratory site where testing is performed. Testing on heparinized plasma is not approved by the FDA; however, such approval is not necessary. Performed By: #### R ENAL #### [facility] [address] [place] [address] Potassium [Moles/Vol] 4.6 mmol/L Normal 3.5 - 5.3 [facility] Comment on above: Performed By: #### R ENAL #### [facility] [address] [place] [address] Sodium [Moles/Vol] 137 mmol/L Normal 136 - 145 [facility] Comment on above: Performed By: #### R ENAL #### [facility] [address] [place] [address] Urea nitrogen [Mass/Vol] 17 mg/dL Normal 6 - 23 [facility] Comment on above: Performed By: #### R ENAL #### [facility] [address] [place] [address] TOTAL PROTEIN, URINE SPOTon 02-19-2023 CREATININE,URINE 49.4 mg/dL Normal 20.0 - 320.0 [facility] Comment on above: Performed By: #### T PS2 #### [facility] [address] [place] [address] T. PROTEIN/CREAT RATIO 3.99 mg/mg Creat High 0.00 - 0.17 [facility] Comment on above: Performed By: #### T PS2 #### [facility] [address] [place] [address] TOTAL PROT,URINE SPOT 197 mg/dL High 5 - 24 [facility] Comment on above: Performed By: #### T PS2 #### [facility] [address] [place] [address] CT Abdomen and Pelvis WO and W contrast Guido 12-15-2022 No lymphadenopathy is identified within the chest. Several small noncalcified nodules within the lungs bilaterally are noted, as described above. Most of these appear stable when compared to the study from 06/16/2012, however there is a new 4 mm nodule within the right lung base which is nonspecific. A small cluster of reticulonodular densities within the lateral aspect of the right middle lobe is also a new, and is favored to be inflammatory or infectious. Given the patient's history of breast cancer, routine CT follow-up is recommended to ensure stability. Mild emphysematous changes. ABDOMEN AND PELVIS: The liver, gallbladder, spleen, pancreas, adrenal glands and kidneys appear within normal limits. The abdominal aorta is normal in caliber. Scattered vascular calcification is noted. There is no retroperitoneal, pelvic, or inguinal lymphadenopathy. The urinary bladder appears grossly normal. The uterus has been removed. The large and small bowel appears within normal limits without evidence of wall thickening or dilatation. There is no free fluid within the abdomen or pelvis. There is no free air under the diaphragm. No lytic or blastic lesions are seen on the bone windows. IMPRESSION: No lymphadenopathy or suspicious mass is identified within the abdomen or pelvis. Report Dictated on Electronically Signed By: Rosalee Ramos Electronically Signed Date/Time: 12/15/2022 3:59 PM [facility] Patient Name[facility] 1945 [place] [id number] Exam Date/Time: 12/15/2022 08:21 Procedure: CT CHEST ABDOMEN PELVIS W CONTRAST Ordering Provider: MARCUS GREG Reason For Exam: weight loss, BRCA mutated, shoulder neck pain, hx of bilateral breast CA CT CHEST, ABDOMEN, AND PELVIS WITH CONTRAST CLINICAL INDICATION: Weight loss, shoulder neck pain, history of breast cancer. Serial, axial CT images were obtained through the chest, abdomen, and pelvis after intravenous contrast. Dose reduction was employed with automated exposure control. 75 milliliters of Isovue 370 contrast was given intravenously. Oral contrast was given for this examination. Coronal and sagittal reformatted images were also made available for interpretation. COMPARISON: CT chest dated 06/16/2012 CHEST: No focal consolidation is seen within the lungs. There is no pleural effusion or pneumothorax. Mild emphysematous changes are noted within the lungs. There is a subpleural nodule at the left costophrenic sulcus measuring [address] image 283 of 376, unchanged when compared to the CT from 06/16/2012. 3 mm subpleural nodule within the left lower lobe in image 257 is unchanged. A 3 mm subpleural nodule within the right lower lobe in image 293 is unchanged. There is a 4 mm nodule within the right lung base in image 277, new when compared to the prior study. A small area of streaky, irregular parenchymal density within the lateral aspect of the right lung near the confluence of the right major and minor fissures laterally appears stable when compared to the prior examination. There is a small cluster of reticulonodular densities within the lateral aspect of the right middle lobe, not present on the prior study. There is no hilar, mediastinal, or axillary lymphadenopathy. Postoperative changes consistent with right mastectomy are noted. There is a left breast implant. The heart size is within normal limits. There is no pericardial effusion. Fairly extensive coronary artery calcification is noted. The thoracic aorta appears normal in caliber. No lytic or blastic lesions are seen on the bone windows. [facility] RADIOLOGY [facility] Rosalee Ramos MD - 12/15/2022 Patient Name: ROLANDO PETERS : 1945 [place] [id number] Exam Date/Time: 12/15/2022 08:21 Procedure: CT CHEST ABDOMEN PELVIS W CONTRAST Ordering Provider: MARCUS GREG Reason For Exam: weight loss, BRCA mutated, shoulder neck pain, hx of bilateral breast CA CT CHEST, ABDOMEN, AND PELVIS WITH CONTRAST CLINICAL INDICATION: Weight loss, shoulder neck pain, history of breast cancer. Serial, axial CT images were obtained through the chest, abdomen, and pelvis after intravenous contrast. Dose reduction was employed with automated exposure control. 75 milliliters of Isovue 370 contrast was given intravenously. Oral contrast was given for this examination. Coronal and sagittal reformatted images were also made available for interpretation. COMPARISON: CT chest dated 06/16/2012 CHEST: No focal consolidation is seen within the lungs. There is no pleural effusion or pneumothorax. Mild emphysematous changes are noted within the lungs. There is a subpleural nodule at the left costophrenic sulcus measuring [address] image 283 of 376, unchanged when compared to the CT from 06/16/2012. 3 mm subpleural nodule within the left lower lobe in image 257 is unchanged. A 3 mm subpleural nodule within the right lower lobe in image 293 is unchanged. There is a 4 mm nodule within the right lung base in image 277, new when compared to the prior study. A small area of streaky, irregular parenchymal density within the lateral aspect of the right lung near the confluence of the right major and minor fissures laterally appears stable when compared to the prior examination. There is a small cluster of reticulonodular densities within the lateral aspect of the right middle lobe, not present on the prior study. There is no hilar, mediastinal, or axillary lymphadenopathy. Postoperative changes consistent with right mastectomy are noted. There is a left breast implant. The heart size is within normal limits. There is no pericardial effusion. Fairly extensive coronary artery calcification is noted. The thoracic aorta appears normal in caliber. No lytic or blastic lesions are seen on the bone windows. IMPRESSION: No lymphadenopathy is identified within the chest. Several small noncalcified nodules within the lungs bilaterally are noted, as described above. Most of these appear stable when compared to the study from 06/16/2012, however there is a new 4 mm nodule within the right lung base which is nonspecific. A small cluster of reticulonodular densities within the lateral aspect of the right middle lobe is also a new, and is favored to be inflammatory or infectious. Given the patient's history of breast cancer, routine CT follow-up is recommended to ensure stability. Mild emphysematous changes. ABDOMEN AND PELVIS: The liver, gallbladder, spleen, pancreas, adrenal glands and kidneys appear within normal limits. The abdominal aorta is normal in caliber. Scattered vascular calcification is noted. There is no retroperitoneal, pelvic, or inguinal lymphadenopathy. The urinary bladder appears grossly normal. The uterus has been removed. The large and small bowel appears within normal limits without evidence of wall thickening or dilatation. There is no free fluid within the abdomen or pelvis. There is no free air under the diaphragm. No lytic or blastic lesions are seen on the bone windows. IMPRESSION: No lymphadenopathy or suspicious mass is identified within the abdomen or pelvis. Report Dictated on Electronically Signed By: Rosalee Ramos Electronically Signed Date/Time: 12/15/2022 3:59 PM EDT [facility] Radiology Study observation (narrative) [facility] CT Abdomen and Pelvis WO and W contrast IVOrdered By: Rosalee Ramos on 12-15-2022 [employer] Work Phone: [facility] Whole body Bone Viewson 0 12-15-2022 No evidence of osseous metastatic disease. Likely degenerative changes of the spine and joints as above. Report Dictated on Electronically Signed By: Rosalee Ramos Electronically Signed Date/Time: 12/15/2022 12:25 PM EDT [employer] [facility] Patient Name: ROLANDO PETERS : 1945 Exam Date/Time: 12/15/2022 10:39 Procedure: ID BONE WHOLE BODY Ordering Provider: MARCUS GREG Reason For Exam: weight loss, BRCA mutated, shoulder neck pain, hx of bilateral breast CA BONE SCINTIGRAPHY (WHOLE BODY) CLINICAL INDICATION: Weight loss, shoulder pain, history of breast cancer Delayed whole body imaging was performed in the standard anterior and posterior projections following the intravenous administration of 22.1 mCi of technetium-99m MDP. Additional spot views of the skull, pelvis, and ribs were also obtained. COMPARISON: CT chest abdomen and pelvis performed the same day FINDINGS: No evidence of osseous metastatic disease is identified. There is mild to moderate increased tracer uptake within the cervical spine and right shoulder, likely degenerative etiology. More mild increased tracer uptake is noted within the left shoulder, thoracic and lumbar spine, wrists, hips, ankles, and feet. [facility] Rosalee Ramos MD - 12/15/2022 Patient Name: ROLANDO PETERS : 1945 Exam Date/Time: 12/15/2022 10:39 Procedure: ID BONE WHOLE BODY Ordering Provider: MARCUS GREG Reason For Exam: weight loss, BRCA mutated, shoulder neck pain, hx of bilateral breast CA BONE SCINTIGRAPHY (WHOLE BODY) CLINICAL INDICATION: Weight loss, shoulder pain, history of breast cancer Delayed whole body imaging was performed in the standard anterior and posterior projections following the intravenous administration of 22.1 mCi of technetium-99m MDP. Additional spot views of the skull, pelvis, and ribs were also obtained. COMPARISON: CT chest abdomen and pelvis performed the same day FINDINGS: No evidence of osseous metastatic disease is identified. There is mild to moderate increased tracer uptake within the cervical spine and right shoulder, likely degenerative etiology. More mild increased tracer uptake is noted within the left shoulder, thoracic and lumbar spine, wrists, hips, ankles, and feet. IMPRESSION: No evidence of osseous metastatic disease. Likely degenerative changes of the spine and joints as above. Report Dictated on Electronically Signed By: Rosalee Ramos Electronically Signed Date/Time: 12/15/2022 12:25 PM EDT [facility] [employer] Radiology Study observation (narrative) Riya estes ENRIQUETA Whole body Bone ViewsOrde red By: Rosalee Ramos on 12-15-2022 [employer] Work Phone: SHOULDER, CMPLT, MIN 2 VIEWS on 11-14-2022 SHOULDER, CMPLT, MIN 2 VIEWS Patient Name: ROLANDO PETERS STUDY: SHOULDER, CMPLT, MIN 2 VIEWS; 11/14/2022 11:31 am INDICATION: PAIN IN RIGHT SHOULDER DUE11. COMPARISON: None. ACCESSION NUMBER(S): [id number] ORDERING CLINICIAN: GLENNA MCKOY FINDINGS: Right shoulder, 4 views There is no fracture. There is no dislocation. Mild osteophytosis in the AC joint. Otherwise no significant degenerative changes seen. Dystrophic calcifications adjacent to the greater tuberosity there is in the distal rotator cuff tendons. IMPRESSION: Mild AC degenerative changes. Dystrophic calcifications in the distal rotator cuff tendons Electronically signed by: OZIEL DE LOS SANTOS MD Normal [facility] CHEST 2 VIEW PA AND LATon CHEST 2 VIEW PA AND LAT Patient Name: ROLANDO PETERS STUDY: TH CHEST 2 VIEW PA AND LAT; 11/04/2022 3:31 pm INDICATION: cough. COMPARISON: 08/29/2022 ACCESSION NUMBER(S): [id number] ORDERING CLINICIAN: CELIA AL FINDINGS: The lungs are hyperinflated. There is no focal lung consolidation or effusion. There is no edema. The cardiac silhouette is within normal limits for size. IMPRESSION: Hyperinflated lungs. No acute cardiopulmonary process. Electronically signed by: OZIEL DE LOS SANTOS MD Normal [facility] CBC AND DIFFERENTIALon 10-17 % AUTOMATED IMMATURE GRAN 0.3 % Normal 0.0 - 0.9 [facility] Comment on above: Result Comment: Yue ture Granulocyte Count (IG) includes promyelocytes, myelocytes and metamyelocytes but does not include bands. Percent differential counts (%) should be interpreted in the context of the absolute cell counts (cells/L). Performed By: #### E LUSP #### [facility] [address] [place] [address] Basophils (Bld) [#/Vol] 0.09 10*3/uL Normal 0.00 - 0.1 0 [facility] Comment on above: Performed By: #### E LUSP #### [facility] [address] [place] [address] Basophils/100 WBC (Bld) 1.4 % Normal 0.0 - 2.0 U [facility] Comment on above: Performed By: #### E LUSP #### [facility] [address] [place] [address] Eosinophils (Bld) [#/Vol] 0.20 10*3/uL Normal 0.00 - 0.40 [facility] Comment on above: Performed By: #### E LUSP #### [facility] [address] [place] [address] Eosinophils/100 WBC (Bld) 3.2 % Normal 0.0 - 6.0 [facility] Comment on above: Performed By: #### E LUSP #### [facility] [address] [place] [address] Erythrocyte distribution width (RBC) [Ratio] 12.7 % Normal 11.5 - 14.5 [facility] Comment on above: Performed By: #### E LUSP #### [facility] [address] [place] [address] Hematocrit (Bld) [Volume fraction] 41.7 % Normal 36.0 - 46.0 [facility] Comment on above: Performed By: #### E LUSP #### [facility] [address] [place] [address] Hemoglobin (Bld) [Mass/Vol] 13.4 g/dL Normal 12.0 - 16.0 [facility] Comment on above: Performed By: #### E LUSP #### [facility] [address] [place] [address] Lymphocytes (Bld) [#/Vol] 1.26 10*3/uL Normal 0.80 - 3.00 [facility] Comment on above: Performed By: #### E LUSP #### [facility] [address] [place] [address] Lymphocytes/100 WBC (Bld) 20.2 % Normal 13.0 - 44.0 [facility] Comment on above: Performed By: #### E LUSP #### [facility] [address] [place] [address] MCHC (RBC) [Mass/Vol] 32.1 g/dL Normal 32.0 - 36.0 [facility] Comment on above: Performed By: #### E LUSP #### [facility] [address] [place] [address] MCV (RBC) [Entitic vol] 94 fL Normal 80 - 100 [facility] Comment on above: Performed By: #### E LUSP #### [facility] [address] [place] [address] Monocytes (Bld) [#/Vol] 0.45 10*3/uL Normal 0.05 - 0.8 0 [facility] Comment on above: Performed By: #### E LUSP #### [facility] [address] [place] [address] Monocytes/100 WBC (Bld) 7.2 % Normal 2.0 - 10.0 [facility] Comment on above: Performed By: #### E LUSP #### [facility] [address] [place] [address] Neutrophils (Bld) [#/Vol] 4.23 10*3/uL Normal 1.60 - 5.50 [facility] Comment on above: Performed By: #### E LUSP #### [facility] [address] [place] [address] Neutrophils/100 WBC (Bld) 67.7 % Normal 40.0 - 80.0 [facility] Comment on above: Performed By: #### E LUSP #### [facility] [address] [place] [address] NUCLEATED RBC 0.0 /100 WBC Normal 0.0-0.0 [facility] Comment on above: Performed By: #### E LUSP #### [facility] [address] [place] [address] Platelets (Bld) [#/Vol] 269 10*3/uL Normal 150 - 450 [facility] Comment on above: Performed By: #### E LUSP #### [facility] [address] [place] [address] RBC 4.44 x10E12/L Normal 4.00 - 5.20 [facility] Comment on above: Performed By: #### E LUSP #### [facility] [address] [place] [address] WBC (Bld) [#/Vol] 6.3 10*3/uL Normal 4.4 - 11.3 [facility] Comment on above: Performed By: #### E LUSP #### [facility] [address] [place] [address] COMPREHENSIVE PANELon 2022 Albumin [Mass/Vol] 4.2 g/dL Normal 3.4 - 5.0 [facility] Comment on above: Performed By: #### C MP #### [facility] [address] [place] [address] ALP [Catalytic activity/Vol] 42 U/L Normal 33 - 136 [facility] Comment on above: Performed By: #### C MP #### [facility] [address] [place] [address] ALT [Catalytic activity/Vol] 13 U/L Normal 7 - 45 [facility] Comment on above: Result Comment: Arabella ents treated with Sulfasalazine may generate falsely decreased results for ALT. Performed By: #### C MP #### [facility] [address] [place] [address] Anion gap [Moles/Vol] 14 mmol/L Normal 10 - 20 [facility] Comment on above: Performed By: #### C MP #### [facility] [address] [place] [address] AST [Catalytic activity/Vol] 13 U/L Normal 9 - 39 [facility] Comment on above: Performed By: #### C MP #### [facility] [address] [place] [address] Bilirubin [Mass/Vol] 0.7 mg/dL Normal 0.0 - 1.2 [facility] Comment on above: Performed By: #### C MP #### [facility] [address] [place] [address] Calcium [Mass/Vol] 9.7 mg/dL Normal 8.6 - 10.6 [facility] Comment on above: Performed By: #### C MP #### [facility] [address] [place] [address] Chloride [Moles/Vol] 101 mmol/L Normal 98 - 107 [facility] Comment on above: Performed By: #### C MP #### [facility] [address] [place] [address] Creatinine [Mass/Vol] 0.73 mg/dL Normal 0.50 - 1.05 [facility] Comment on above: Performed By: #### C MP #### [facility] [address] [place] [address] GFR/1.73 sq M.predicted among non-blacks MDRD (S/P/Bld) [Vol rate/Area] 85 mL/min/{1.73_m2} Normal >90 [facility] Comment on above: Result Comment: CALC ULATIONS OF ESTIMATED GFR ARE PERFORMED USING THE 2020 CKD-EPI STUDY REFIT EQUATION WITHOUT THE RACE VARIABLE FOR THE IDMS-TRACEABLE CREATININE METHODS. https://jasn.asnjournals.org/content//ASN.2020 954130 Performed By: #### C MP #### [facility] [address] [place] [address] Glucose [Mass/Vol] 125 mg/dL High 74 - 99 [facility] Comment on above: Performed By: #### C MP #### [facility] [address] [place] [address] HCO3 (Bld) [Moles/Vol] 28 mmol/L Normal 21 - 32 [facility] Comment on above: Performed By: #### C MP #### [facility] [address] [place] [address] Potassium [Moles/Vol] 4.8 mmol/L Normal 3.5 - 5.3 [facility] Comment on above: Performed By: #### C MP #### [facility] [address] [place] [address] Protein [Mass/Vol] 6.6 g/dL Normal 6.4 - 8.2 [facility] Comment on above: Performed By: #### C MP #### [facility] [address] [place] [address] Sodium [Moles/Vol] 138 mmol/L Normal 136 - 145 [facility] Comment on above: Performed By: #### C MP #### [facility] [address] [place] [address] Urea nitrogen [Mass/Vol] 15 mg/dL Normal 6 - 23 [facility] Comment on above: Performed By: #### C MP #### [facility] [address] [place] [address] FOLATE, SERUMon 10-17-2022 Folate [Mass/Vol] 7.4 ng/mL Normal >5.0 [facility] Comment on above: Result Comment: Low <3.4 Borderline 3.4-5.0 Normal >5.0 . Biotin interference may cause falsely elevated results. Patients taking a Biotin dose of up to 5 mg/day should refrain from taking Biotin for 24 hours before sample collection. Providers may contact their local laboratory for further information. Performed By: #### F OLA2 #### [facility] [address] [place] [address] HEMOGLOBIN A1Con 10-17-2022 Glucose [Mass/Vol] 131 mg/dL Normal [facility] Comment on above: Performed By: #### T HYDS #### [facility] [address] [place] [address] HbA1c (Bld) [Mass fraction] 6.2 % Abnormal [facility] Comment on above: Result Comment: Diag nosis of Diabetes-Adults Non-Diabetic: < or = 5.6% Increased risk for developing diabetes: 5.7-6.4% Diagnostic of diabetes: > or = 6.5% . Monitoring of Diabetes Age (y) Therapeutic Goal (%) Adults: >18 <7.0 Pediatrics: 13-18 <7.5 7-12 <8.0 0- 6 7.5-8.5 [employer]. Diabetes Care 33(S1), Aug 2009. Performed By: #### T HYDS #### [facility] [address] [place] [address] LIPID PANEL (CORONARY RISK 2 )on 10-17-2022 Cholesterol [Mass/Vol] 133 mg/dL Normal 0 - 199 [facility] Comment on above: Result Comment: . AGE DESIRABLE BORDERLINE HIGH HIGH 0-19 Y 0 - 169 170 - 199 >/= 200 20-24 Y 0 - 189 190 - 224 >/= 225 >24 Y 0 - 199 200 - 239 >/= 240 All ranges are based on fasting samples. Specific therapeutic targets will vary based on patient-specific cardiac risk. . Pediatric guidelines reference:Pediatrics 2011, 128(S5). Adult guidelines reference: NCEP ATPIII Guidelines, SARAH 2001, 258:2486-97 . Venipuncture immediately after or during the administration of Metamizole may lead to falsely low results. Testing should be performed immediately prior to Metamizole dosing. Performed By: #### L IPID #### [facility] [address] [place] [address] Cholesterol in HDL [Mass/Vol] 52.7 mg/dL Normal [facility] Comment on above: Result Comment: . AGE VERY LOW LOW NORMAL HIGH 0-19 Y < 35 < 40 40-45 ---- 20-24 Y ---- < 40 >45 ---- >24 Y ---- < 40 40-60 >60 . Performed By: #### L IPID #### [facility] [address] [place] [address] Cholesterol in LDL [Mass/Vol] 45 mg/dL Normal 0 - 99 [facility] Comment on above: Result Comment: . NEAR BORD AGE DESIRABLE OPTIMAL HIGH HIGH VERY HIGH 0-19 Y 0 - 109 --- 110-129 >/= 130 ---- 20-24 Y 0 - 119 --- 120-159 >/= 160 ---- >24 Y 0 - 99 100-129 130-159 160-189 >/=190 . Performed By: #### L IPID #### [facility] [address] [place] [address] Cholesterol in VLDL [Mass/Vol] 36 mg/dL Normal 0 - 40 [facility] Comment on above: Performed By: #### L IPID #### [facility] [address] [place] [address] Cholesterol.total/Lulu sterol in HDL [Mass ratio] 2.5 {ratio} Normal [facility] Comment on above: Result Comment: REF VALUES DESIRABLE < 3.4 HIGH RISK > 5.0 Performed By: #### L IPID #### [facility] [address] [place] [address] Triglyceride [Mass/Vol] 179 mg/dL High 0 - 149 [facility] Comment on above: Result Comment: . AGE DESIRABLE BORDERLINE HIGH HIGH VERY HIGH 0 D-90 D 19 - 174 ---- ---- ---- 91 D- 9 Y 0 - 74 75 - 99 >/= 100 ---- 10-19 Y 0 - 89 90 - 129 >/= 130 ---- 20-24 Y 0 - 114 115 - 149 >/= 150 ---- >24 Y 0 - 149 150 - 199 200- 499 >/= 500 . Venipuncture immediately after or during the administration of Metamizole may lead to falsely low results. Testing should be performed immediately prior to Metamizole dosing. Performed By: #### L IPID #### [facility] [address] [place] [address] PARATHYROID HORMONE,INTACTon 10-17-2022 PARATHYROID HORMONE,INTACT 63.4 pg/mL Normal 18.5 - 88.0 [facility] Comment on above: Performed By: #### P TH #### [facility] [address] [place] [address] PHOSPHORUSon 10-17-2022 Phosphate [Mass/Vol] 3.8 mg/dL Normal 2.5 - 4.9 [facility] Comment on above: Result Comment: The performance characteristics of phosphorus testing in heparinized plasma have been validated by the individual laboratory site where testing is performed. Testing on heparinized plasma is not approved by the FDA; however, such approval is not necessary. Performed By: #### E LUSP #### [facility] [address] [place] [address] TOTAL PROTEIN, URINE SPOTon 10-17-2022 T. PROTEIN/CREAT RATIO 3.65 mg/mg Creat High 0.00 - 0.17 [facility] Comment on above: Performed By: #### T HYDS #### [facility] [address] [place] [address] TOTAL PROT,URINE SPOT 551 mg/dL High 5 - 24 [facility] Comment on above: Performed By: #### T HYDS #### [facility] [address] [place] [address] CREATININE,URINE 151.0 mg/dL Normal 20.0 - 320.0 [facility] Comment on above: Performed By: #### T HYDS #### [facility] [address] [place], [place] TSH WITH REFLEX TO FREE T4 I F ABNORMALon 10-17-2022 TSH Qn 1.24 m[IU]/L Normal 0.44 - 3.98 [facility] Comment on above: Result Comment: TSH testing is performed using different testing methodology at [facility] than at [facility]. Direct result comparisons should only be made within the same method. Performed By: #### T HYDS #### [facility] [address] [place] [address] URIC ACIDon 10-17-2022 Urate [Mass/Vol] 5.8 mg/dL Normal 2.3 - 6.7 [facility] [place] Comment on above: Result Comment: Yarely puncture immediately after or during the administration of Metamizole may lead to falsely low results. Testing should be performed immediately prior to Metamizole dosing. Performed By: #### U EMANUEL #### [facility] [address] [place] [address] VITAMIN B12on 10-17-2022 Cobalamin (Vitamin B12) [Mass/Vol] 236 pg/mL Normal 211 - 911 [facility] Comment on above: Performed By: #### T HYDS #### [facility] [address] [place] [address] VITAMIN D, 25-HYDROXYon - VITAMIN D, 25-HYDROXY 53 ng/mL Normal [facility] Comment on above: Result Comment: . DEFICIENCY: < 20 NG/ML INSUFFICIENCY: 20-29 NG/ML SUFFICIENCY: 30-100 NG/ML THIS ASSAY ACCURATELY QUANTIFIES THE SUM OF VITAMIN D3, 25-HYDROXY AND VIT D2,25-HYDROXY. Performed By: #### T HYDS #### [facility] [address] [place] [address] Complete Blood Count + Diffe rentialon 10-16-2022 Basophils/100 WBC (Bld) 1.4 % 0.0 - 2.0 [facility] Work Phone: Erythrocyte distribution width (RBC) [Ratio] 12.7 % See Below [facility] Work Phone: Comment on above: Reference Range: 11. 5 - 14.5 Hematocrit (Bld) [Volume fraction] 41.7 % See Below [facility] Work Phone: Comment on above: Reference Range: 36. 0 - 46.0 Hemoglobin (Bld) [Mass/Vol] 13.4 g/dL See Below [facility] Work Phone: Comment on above: Reference Range: 12. 0 - 16.0 Lymphocytes/100 WBC (Bld) 20.2 % See Below [facility] Work Phone: Comment on above: Reference Range: 13. 0 - 44.0 MCHC (RBC) [Mass/Vol] 32.1 g/dL See Below [facility] Work Phone: Comment on above: Reference Range: 32. 0 - 36.0 MCV (RBC) [Entitic vol] 94 fL 80 - 100 [facility] Work Phone: Monocytes/100 WBC (Bld) 7.2 % 2.0 - 10.0 [facility] Work Phone: Neutrophils/100 WBC (Bld) 67.7 % See Below [facility] Work Phone: Comment on above: Reference Range: 40. 0 - 80.0 Platelets (Bld) [#/Vol] 269 10*3/uL 150 - 450 [facility] Work Phone: RBC (Bld) [#/Vol] 4.44 {x10E12/L} See Below [facility] Work Phone: Comment on above: Reference Range: 4.0 0 - 5.20 WBC (Bld) [#/Vol] 6.3 10*3/uL 4.4 - 11.3 [facility] Work Phone: Complete Blood Count + Differential 0.09 {x10E9/L} See Below [facility] Work Phone: Comment on above: Reference Range: 0.0 0 - 0.10 Complete Blood Count + Differential 0.20 {x10E9/L} See Below [facility] Work Phone: Comment on above: Reference Range: 0.0 0 - 0.40 Complete Blood Count + Differential 0.45 {x10E9/L} See Below [facility] Work Phone: Comment on above: Reference Range: 0.0 5 - 0.80 Complete Blood Count + Differential 1.26 {x10E9/L} See Below [facility] Work Phone: Comment on above: Reference Range: 0.8 0 - 3.00 Complete Blood Count + Differential 4.23 {x10E9/L} See Below [facility] Work Phone: Comment on above: Reference Range: 1.6 0 - 5.50 Complete Blood Count + Differential 3.2 % 0.0 - 6.0 [facility] Work Phone: Complete Blood Count + Differential 0.3 % 0.0 - 0.9 [facility] Work Phone: Comment on above: Immature Granulocyte Count (IG) includes promyelocytes, myelocytes and metamyelocytes but does not include bands. Percent differential counts (%) should be interpreted in the context of the absolute cell counts (cells/L). Complete Blood Count + Differential 0.0 {/100_WBC} 0.0-0.0 [facility] Work Phone: Folate, Serumon 10-16-2022 Folate [Mass/Vol] 7.4 ng/mL >5.0 [facility] Work Phone: Comment on above: Low <3.4Borderline 3 .4-5.0Normal >5.0. Biotin interference may cause falsely elevated results. Patients taking a Biotin dose of up to 5 mg/day should refrain from taking Biotin for 24 hours before sample collection. Providers may contact their local laboratory for further information. Hemoglobin A1Con 10-16-2022 Glucose [Mass/Vol] 131 mg/dL [facility] Work Phone: HbA1c (Bld) [Mass fraction] 6.2 % Abnormal [facility] Work Phone: Comment on above: Diagnosis of Diabete s-Adults Non-Diabetic: < or = 5.6% Increased risk for developing diabetes: 5.7-6.4% Diagnostic of diabetes: > or = 6.5%. Monitoring of Diabetes Age (y) Therapeutic Goal (%) Adults: >18 <7.0 Pediatrics: 13-18 <7.5 7-12 <8.0 0- 6 7.5-8.5 [employer]. Diabetes Care 33(S1), Aug 2009. Laboratory - Chemistry and C hemistry - challengeon 10-16-2022 Albumin BCP dye [Mass/Vol] 4.2 g/dL 3.4 - 5.0 [facility] Work Phone: ALP [Catalytic activity/Vol] 42 U/L 33 - 136 [facility] Work Phone: ALT With P-5'-P [Catalytic activity/Vol] 13 U/L 7 - 45 [facility] Work Phone: Comment on above: Patients treated wit h Sulfasalazine may generate falsely decreased results for ALT. Anion gap [Moles/Vol] 14 mmol/L 10 - 20 [facility] Work Phone: AST With P-5'-P [Catalytic activity/Vol] 13 U/L 9 - 39 [facility] Work Phone: Bilirubin [Mass/Vol] 0.7 mg/dL 0.0 - 1.2 [facility] Work Phone: Calcium [Mass/Vol] 9.7 mg/dL 8.6 - 10.6 [facility] Work Phone: Chloride [Moles/Vol] 101 mmol/L 98 - 107 [facility] Work Phone: CO2 [Moles/Vol] 28 mmol/L 21 - 32 [facility] Work Phone: Creatinine [Mass/Vol] 0.73 mg/dL See Below [facility] Work Phone: Comment on above: Reference Range: 0.5 0 - 1.05 Glucose [Mass/Vol] 125 mg/dL above high threshold 74 - 99 [facility] Work Phone: Potassium [Moles/Vol] 4.8 mmol/L 3.5 - 5.3 [facility] Work Phone: Protein [Mass/Vol] 6.6 g/dL 6.4 - 8.2 [facility] Work Phone: Sodium [Moles/Vol] 138 mmol/L 136 - 145 [facility] Work Phone: TSH Qn 1.24 m[IU]/L See Below [facility] Work Phone: Comment on above: Reference Range: 0.4 4 - 3.98 TSH testing is performed using different testing methodology at [facility] than at other [facility]. Direct result comparisons should only be made within the same method. Urea nitrogen [Mass/Vol] 15 mg/dL 6 - 23 [facility] Work Phone: Lipid Panelon 10-16-2022 Cholesterol [Mass/Vol] 133 mg/dL 0 - 199 [facility] Work Phone: Comment on above: . AGE DESIRABLE BORD LILIAM HIGH HIGH 0-19 Y 0 - 169 170 - 199 >/= 200 20-24 Y 0 - 189 190 - 224 >/= 225 >24 Y 0 - 199 200 - 239 >/= 240 All ranges are based on fasting samples. Specific therapeutic targets will vary based on patient-specific cardiac risk.. Pediatric guidelines reference:Pediatrics 2011, 128(S5). Adult guidelines reference: NCEP ATPIII Guidelines, SARAH 2001, 258:2486-97. Venipuncture immediately after or during the administration of Metamizole may lead to falsely low results. Testing should be performed immediately prior to Metamizole dosing. Cholesterol in HDL [Mass/Vol] 52.7 mg/dL [facility] Work Phone: Comment on above: . AGE VERY LOW LOW N ORMAL HIGH 0-19 Y < 35 < 40 40-45 ---- 20-24 Y ---- < 40 >45 ---- >24 Y ---- < 40 40-60 >60. Cholesterol in LDL [Mass/Vol] 45 mg/dL 0 - 99 [facility] Work Phone: Comment on above: . NEAR BORD AGE CAROLYNN RABLE OPTIMAL HIGH HIGH VERY HIGH 0-19 Y 0 - 109 --- 110-129 >/= 130 ---- 20-24 Y 0 - 119 --- 120-159 >/= 160 ---- >24 Y 0 - 99 100-129 130-159 160-189 >/=190. Cholesterol.total/Lulu sterol in HDL [Mass ratio] 2.5 {ratio} [facility] Work Phone: Comment on above: REF VALUESDESIRABLE < 3.4HIGH RISK > 5.0 Triglyceride [Mass/Vol] 179 mg/dL above hi gh threshold 0 - 149 [facility] Work Phone: Comment on above: . AGE DESIRABLE BORD LILIAM HIGH HIGH VERY HIGH 0 D-90 D 19 - 174 ---- ---- ----91 D- 9 Y 0 - 74 75 - 99 >/= 100 ---- 10-19 Y 0 - 89 90 - 129 >/= 130 ---- 20-24 Y 0 - 114 115 - 149 >/= 150 ---- >24 Y 0 - 149 150 - 199 200- 499 >/= 500. Venipuncture immediately after or during the administration of Metamizole may lead to falsely low results. Testing should be performed immediately prior to Metamizole dosing. Lipid Panel 36 mg/dL 0 - 40 [facility] Work Phone: No Panel Informationon 10-16 85 {mL/min/1.73m2} >90 [facility] Work Phone: Comment on above: CALCULATIONS OF SAKINA MATED GFR ARE PERFORMED USING THE 2020 CKD-EPI STUDY REFIT EQUATION WITHOUT THE RACE VARIABLE FOR THE IDMS-TRACEABLE CREATININE METHODS.https://jasn.asnjournals.org/content// ASN.5518560744 Parathormone Intact, Serumon 10-16-2022 Parathyrin.intact [Mass/Vol] 63.4 pg/mL See Below [facility] Work Phone: Comment on above: Reference Range: 18. 5 - 88.0 Phosphorus, Serumon 10-17-19 23 Phosphate [Mass/Vol] 3.8 mg/dL 2.5 - 4.9 [facility] Work Phone: Comment on above: The performance luis acteristics of phosphorus testing in heparinized plasma have been validated by the individual laboratory site where testing is performed. Testing on heparinized plasma is not approved by the FDA; however, such approval is not necessary. Total Protein, Urine Spoton 10-16-2022 Creatinine (U) [Mass/Vol] 151.0 mg/dL See Below [facility] Work Phone: Comment on above: Reference Range: 20. 0 - 320.0 Protein (U) [Mass/Vol] 551 mg/dL above hig h threshold 5 - 24 [facility] Work Phone: Protein/Creatinine (U) [Ratio] 3.65 {mg/mg_Creat} above high threshold See Below [facility] Work Phone: Comment on above: Reference Range: 0.0 0 - 0.17 Uric Acid, Serumon 3 Urate [Mass/Vol] 5.8 mg/dL 2.3 - 6.7 [facility] Work Phone: Comment on above: Venipuncture immedia tely after or during the administration of Metamizole may lead to falsely low results. Testing should be performed immediately prior to Metamizole dosing. Vitamin B12, Serumon 023 Cobalamin (Vitamin B12) [Mass/Vol] 236 pg/mL 211 - 911 [facility] Work Phone: Vitamin D 25-Hydroxyon 10-16 25-hydroxyvitamin D3 [Mass/Vol] 53 ng/mL [facility] Work Phone: Comment on above: .DEFICIENCY: < 20 NG /MLINSUFFICIENCY: 20-29 NG/MLSUFFICIENCY: 30-100 NG/MLTHIS ASSAY ACCURATELY QUANTIFIES THE SUM OFVITAMIN D3, 25-HYDROXY AND VIT D2,25-HYDROXY. US Heart TransthoracicOrdere d By: Manjit Jellycoaster on 09-18-2022 AR Max Velocity PISA 3.9 m/s [facility] Work Phone: [phone] AR PHT 335.3 ms [facility] Work Phone: [phone] AV Area by Peak Velocity 2.3 cm2 [facility] Work Phone: [phone] AV Area by VTI 2.3 cm2 [facility] Work Phone: [phone] AV Mean Gradient 9 mmHg [facility] Work Phone: [phone] AV Mean Velocity 1.4 m/s [facility] Work Phone: [phone] AV Peak Gradient 14 mmHg [facility] Work Phone: [phone] AV Peak Velocity 1.9 m/s [facility] Work Phone: [phone] AV Velocity Ratio 0.84 [facility] Work Phone: [phone] AV VTI 47.7 cm [facility] Work Phone: [phone] KAMRYN/BSA Peak Velocity 1.3 cm2/m2 [facility] Work Phone: [phone] KAMRYN/BSA VTI 1.3 cm2/m2 [facility] Work Phone: [phone] E/E' Lateral 20.83 [facility] Work Phone: [phone] E/E' Ratio (Averaged) 26.04 [facility] Work Phone: [phone] E/E' Septal 31.25 [facility] Work Phone: [phone] EF BP 70 % 55 - 100 % [facility] Work Phone: [phone] Fractional Shortening 2D 20 % 28 - 44 % [facility] Work Phone: [phone] Global Longitudinal Strain -24.3 % [facility] Work Phone: Global Longitudinal Strain -22.4 % [facility] Work Phone: Global Longitudinal Strain -20.7 % [facility] Work Phone: Global Longitudinal Strain -22.5 % [facility] Work Phone: Interpretation and review of laboratory results Abnormal [facility] Work Phone: IVC Diameter 1.6 cm [facility] Work Phone: IVSd 0.7 cm 0.6 - 0.9 cm [facility] Work Phone: LA Volume 2C 59 mL Abnormal 22 - 52 mL [facility] Work Phone: LA Volume 4C 43 mL 22 - 52 mL [facility] Work Phone: LA Volume A/L 56 mL [facility] Work Phone: LA Volume Index 2C 33 mL/m2 16 - 34 mL/m2 [facility] Work Phone: LA Volume Index 4C 24 mL/m2 16 - 34 mL/m2 [facility] Work Phone: LA Volume Index A/L 31 mL/m2 16 - 34 mL/m2 [facility] Work Phone: LV E' Lateral Velocity 6 cm/s [facility] Work Phone: LV E' Septal Velocity 4 cm/s [facility] Work Phone: LV EDV A2C 39 mL [facility] Work Phone: LV EDV A4C 50 mL [facility] Work Phone: LV EDV BP 44 mL Abnormal 56 - 104 mL [facility] Work Phone: LV EDV Index A2C 22 mL/m2 [facility] He alth Work Phone: LV EDV Index A4C 28 mL/m2 [facility] He [facility] Work Phone: LV EDV Index BP 24 mL/m2 [facility] Work Phone: LV Ejection Fraction A2C 72 % [facility] Work Phone: LV Ejection Fraction A4C 68 % [facility] Work Phone: [phone] LV ESV A2C 11 mL [facility] Work Phone: 95 LV ESV A4C 16 mL [facility] Work Phone: [phone] LV ESV BP 13 mL Abnormal 19 - 49 mL [facility] Work Phone: [phone] LV ESV Index A2C 6 mL/m2 [facility] Work Phone: [phone] LV ESV Index A4C 9 mL/m2 [facility] Work Phone: 95 LV ESV Index BP 7 mL/m2 [facility] Work Phone: 95 LV Mass 2D 49.0 g Abnormal 67 - 162 g [facility] Work Phone: 95 LV Mass 2D Index 27.1 g/m2 Abnormal 43 - 95 g/m2 [facility] Work Phone: 95 LV RWT Ratio 0.47 [facility] Work Phone: 95 LVIDd 3.0 cm Abnormal 3.9 - 5.3 cm [facility] Work Phone: 95 LVIDd Index 1.66 cm/m2 [facility] Work Phone: 95 LVIDs 2.4 cm [facility] Work Phone: 95 LVIDs Index 1.33 cm/m2 [facility] Work Phone: 95 LVOT Area 2.8 cm2 [facility] Work Phone: 95 LVOT Cardiac Output 7.8 liter/minute [facility] Work Phone: [phone] LVOT Diameter 1.9 cm [facility] h Work Phone: [phone] LVOT Mean Gradient 6 mmHg [facility] Work Phone: [phone] LVOT Peak Gradient 10 mmHg [facility] Work Phone: 95 LVOT Peak Velocity 1.6 m/s [facility] Work Phone: [phone] LVOT Stroke Volume Index 61.5 mL/m2 [facility] Work Phone: [phone] LVOT SV 111.4 ml [facility] [employer] Work Phone: [phone] LVOT VTI 39.3 cm [facility] [employer] Work Phone: [phone] LVOT:AV VTI Index 0.82 [facility] [employer] Work Phone: [phone] LVPWd 0.7 cm 0.6 - 0.9 cm [facility] [employer] Work Phone: [phone] MV A Velocity 1.07 m/s [facility]alt h Work Phone: [phone] MV E Velocity 1.25 m/s [facility] h Work Phone: [phone] MV E Wave Deceleration Time 175.9 ms [facility] [employer] Work Phone: [phone] MV E/A 1.17 [facility] [employer] Work Phone: [phone] TAPSE 2.6 cm 1.7 cm [facility] [employer] Work Phone: [phone] [facility] Work Phone: [phone] Heart Transthoracicon Left Ventricle: Left ventricle is smaller than normal. Normal wall thickness. Ventricular mass is less than normal. Normal left ventricular systolic function. The EF by visual approximation is 65%. EF by 2D Simpsons Biplane is 70%. Normal wall motion. Diastolic dysfunction present with normal LVEF. E/A ratio is 1.17. Average E/e' ratio is 26.04. Right Ventricle: Right ventricle size is normal. Normal systolic function. TAPSE is normal. Pulmonary Arteries: Unable to assess RVSP due to limited technical data. No significant valvular abnormalities. Left Ventricle Left ventricle is smaller than normal. Normal wall thickness. Ventricular mass is less than normal. Normal left ventricular systolic function. The EF by visual approximation is 65%. EF by 2D Simpsons Biplane is 70%. Normal wall motion. Diastolic dysfunction present with normal LVEF. E/A ratio is 1.17. Average E/e' ratio is 26.04. Right Ventricle Right ventricle size is normal. Normal systolic function. TAPSE is normal. Left Atrium Left atrium size is normal (LA volume index 16-34 mL/m2). Right Atrium Right atrium size is normal. IVC/SVC IVC diameter is normal and decreases greater than 50% during inspiration; therefore the estimated right atrial pressure is normal (~3 mmHg). Mitral Valve Valve structure is normal. Mild (1+) regurgitation. No stenosis noted. Tricuspid Valve Valve structure is normal. Trace regurgitation. Aortic Valve Trileaflet. No cusp thickening. No cusp calcification. Mild (1+) regurgitation. No stenosis. Pulmonic Valve Valve structure is normal. Trace regurgitation. Ascending Aorta Normal sized sinuses of Valsalva and ascending aorta. Pericardium No pericardial effusion. Septum No interatrial shunt visualized on color Doppler. Pulmonary Artery Unable to assess RVSP due to limited technical data. Study Details Image quality: fair. The underlying ECG rhythm was sinus rhythm. No contrast was given. Echo Additional Conclusions No significant valvular abnormalities. CV CPACS PROT.ELECTRO,URN PATH REVIEW on 09-02-2022 PATH REVIEW-LEONARDO FAROOQ Normal [facility] Comment on above: Result Comment: By h er/his signature above, the Pathologist listed as making the final interpretation certifies that she/he has personally reviewed this case. Performed By: #### P R14 #### [facility] [address] [place] [address] PROTEIN ELECTROPHORESIS, RAN DOMon 09-02-2022 INTERPRETATION ABNORMAL Normal [facility] Comment on above: Result Comment: [place] boss proteinuria. Performed By: #### E LUSP #### [facility] [address] [place] [address] PROTEIN ELECTROPHORESIS,SERU 09-02-2022 INTERPRETATION NORMAL Normal [facility] Comment on above: Performed By: #### E LUSP #### [facility] [address] [place] [address] SPE PATH REVIEWon 09-02-2022 PATH REVIEW-JOSE FAROOQ Normal [facility] Comment on above: Result Comment: By h er/his signature above, the Pathologist listed as making the final interpretation certifies that she/he has personally reviewed this case. Performed By: #### E LUSP #### [facility] [address] [place] [address] ECG 12 leadon 09-01-2022 Sinus Rhythm WITHIN NORMAL LIMITS [facility] PROTEIN ELECTROPHORESIS, RAN DOMon 09-01-2022 ALBUMIN % 85.9 % Normal Not Established [facility] Comment on above: Performed By: #### E LUSP #### [facility] [address] [place] [address] ALPHA 1 GLOBULIN % 1.7 % Normal Not Established [facility] Comment on above: Performed By: #### E LUSP #### [facility] [address] [place] [address] ALPHA 2 GLOBULIN % 2.8 % Normal Not Established [facility] Comment on above: Performed By: #### E LUSP #### [facility] [address] [place] [address] BETA GLOBULIN % 5.6 % Normal Not Established [facility] Comment on above: Performed By: #### E LUSP #### [facility] [address] [place] [address] GAMMA GLOBULIN % 4.0 % Normal Not Established [facility] Comment on above: Performed By: #### E LUSP #### [facility] [address] [place] [address] PROTEIN ELECTROPHORESIS,SERU 09-01-2022 Albumin [Mass/Vol] 4.5 g/dL Normal 3.4 - 5.0 [facility] Comment on above: Performed By: #### E LUSP #### [facility] [address] [place] [address] ALPHA 1 GLOBULIN 0.3 g/dL Normal 0.2 - 0.6 [facility] [place] Comment on above: Performed By: #### E LUSP #### [facility] [address] [place] [address] ALPHA 2 GLOBULIN 0.8 g/dL Normal 0.4 - 1.1 [facility] [place] Comment on above: Performed By: #### E LUSP #### [facility] [address] [place] [address] BETA GLOBULIN 0.8 g/dL Normal 0.5 - 1.2 [facility] Comment on above: Performed By: #### E LUSP #### [facility] [address] [place] [address] GAMMA GLOBULIN 0.9 g/dL Normal 0.5 - 1.4 [facility] Comment on above: Performed By: #### E LUSP #### [facility] [address] [place] [address] CBC AND DIFFERENTIALon 08-30 % AUTOMATED IMMATURE GRAN 0.4 % Normal 0.0 - 0.9 [facility] Comment on above: Result Comment: Yue ture Granulocyte Count (IG) includes promyelocytes, myelocytes and metamyelocytes but does not include bands. Percent differential counts (%) should be interpreted in the context of the absolute cell counts (cells/L). Performed By: #### T HYDS #### [facility] [address] [place] [address] Basophils (Bld) [#/Vol] 0.08 10*3/uL Normal 0.00 - 0.1 0 [facility] Comment on above: Performed By: #### T HYDS #### [facility] [address] [place] [address] Basophils/100 WBC (Bld) 0.9 % Normal 0.0 - 2.0 [facility] Comment on above: Performed By: #### T HYDS #### [facility] [address] [place] [address] Eosinophils (Bld) [#/Vol] 0.22 10*3/uL Normal 0.00 - 0.40 [facility] Comment on above: Performed By: #### T HYDS #### [facility] [address] [place] [address] Eosinophils/100 WBC (Bld) 2.5 % Normal 0.0 - 6.0 [facility] Comment on above: Performed By: #### T HYDS #### [facility] [address] [place] [address] Erythrocyte distribution width (RBC) [Ratio] 12.8 % Normal 11.5 - 14.5 [facility] Comment on above: Performed By: #### T HYDS #### [facility] [address] [place] [address] Hematocrit (Bld) [Volume fraction] 41.4 % Normal 36.0 - 46.0 [facility] Comment on above: Performed By: #### T HYDS #### [facility] [address] [place] [address] Hemoglobin (Bld) [Mass/Vol] 13.5 g/dL Normal 12.0 - 16.0 [facility] [place] Comment on above: Performed By: #### T HYDS #### [facility] [address] [place] [address] Lymphocytes (Bld) [#/Vol] 1.60 10*3/uL Normal 0.80 - 3.00 [facility] [place] Comment on above: Performed By: #### T HYDS #### [facility] [address] [place] [address] Lymphocytes/100 WBC (Bld) 18.0 % Normal 13.0 - 44.0 [facility] [place] Comment on above: Performed By: #### T HYDS #### [facility] [address] [place] [address] MCHC (RBC) [Mass/Vol] 32.6 g/dL Normal 32.0 - 36.0 [facility] [place] Comment on above: Performed By: #### T HYDS #### [facility] [address] [place] [address] MCV (RBC) [Entitic vol] 93 fL Normal 80 - 100 U [facility] [place] Comment on above: Performed By: #### T HYDS #### [facility] [address] [place] [address] Monocytes (Bld) [#/Vol] 0.68 10*3/uL Normal 0.05 - 0.8 0 [facility] [place] Comment on above: Performed By: #### T HYDS #### [facility] [address] [place] [address] Monocytes/100 WBC (Bld) 7.6 % Normal 2.0 - 10.0 [facility] Comment on above: Performed By: #### T HYDS #### [facility] [address] [place] [address] Neutrophils (Bld) [#/Vol] 6.29 10*3/uL High 1.60 - 5.50 [facility] [place] Comment on above: Performed By: #### T HYDS #### [facility] [address] [place] [address] Neutrophils/100 WBC (Bld) 70.6 % Normal 40.0 - 80.0 [facility] [place] Comment on above: Performed By: #### T HYDS #### [facility] [address] [place] [address] NUCLEATED RBC 0.0 /100 WBC Normal 0.0-0.0 [facility] Comment on above: Performed By: #### T HYDS #### [facility] [address] [place] [address] Platelets (Bld) [#/Vol] 254 10*3/uL Normal 150 - 450 [facility] [place] Comment on above: Performed By: #### T HYDS #### [facility] [address] [place] [address] RBC 4.47 x10E12/L Normal 4.00 - 5.20 [facility] Comment on above: Performed By: #### T HYDS #### [facility] [address] [place] [address] WBC (Bld) [#/Vol] 8.9 10*3/uL Normal 4.4 - 11.3 [facility] Comment on above: Performed By: #### T HYDS #### [facility] [address] [place] [address] COMPREHENSIVE PANELon 2022 Albumin [Mass/Vol] 4.9 g/dL Normal 3.4 - 5.0 [facility] Comment on above: Performed By: #### T HYDS #### [facility] [address] [place] [address] ALP [Catalytic activity/Vol] 46 U/L Normal 33 - 136 [facility] [place] Comment on above: Performed By: #### T HYDS #### [facility] [address] [place] [address] ALT [Catalytic activity/Vol] 13 U/L Normal 7 - 45 [facility] [place] Comment on above: Result Comment: Arabella ents treated with Sulfasalazine may generate falsely decreased results for ALT. Performed By: #### T HYDS #### [facility] [address] [place] [address] Anion gap [Moles/Vol] 19 mmol/L Normal 10 - 20 [facility] [place] Comment on above: Performed By: #### T HYDS #### [facility] [address] [place] [address] AST [Catalytic activity/Vol] 15 U/L Normal 9 - 39 [facility] [place] Comment on above: Performed By: #### T HYDS #### [facility] [address] [place] [address] Bilirubin [Mass/Vol] 0.7 mg/dL Normal 0.0 - 1.2 [facility] Comment on above: Performed By: #### T HYDS #### [facility] [address] [place] [address] Calcium [Mass/Vol] 9.7 mg/dL Normal 8.6 - 10.6 [facility] Comment on above: Performed By: #### T HYDS #### [facility] [address] [place] [address] Chloride [Moles/Vol] 100 mmol/L Normal 98 - 107 [facility] Comment on above: Performed By: #### T HYDS #### [facility] [address] [place] [address] Creatinine [Mass/Vol] 0.87 mg/dL Normal 0.50 - 1.05 [facility] [place] Comment on above: Performed By: #### T HYDS #### [facility] [address] [place] [address] GFR/1.73 sq M.predicted among non-blacks MDRD (S/P/Bld) [Vol rate/Area] 69 mL/min/{1.73_m2} Normal >90 [facility] [place] Comment on above: Result Comment: CALC ULATIONS OF ESTIMATED GFR ARE PERFORMED USING THE 2020 CKD-EPI STUDY REFIT EQUATION WITHOUT THE RACE VARIABLE FOR THE IDMS-TRACEABLE CREATININE METHODS. https://jasn.asnjournals.org/content//ASN.2020 414839 Performed By: #### T HYDS #### [facility] [address] [place] [address] Glucose [Mass/Vol] 111 mg/dL High 74 - 99 [facility] Comment on above: Performed By: #### T HYDS #### [facility] [address] [place] [address] HCO3 (Bld) [Moles/Vol] 25 mmol/L Normal 21 - 32 [facility] [place] Comment on above: Performed By: #### T HYDS #### [facility] [address] [place] [address] Potassium [Moles/Vol] 4.7 mmol/L Normal 3.5 - 5.3 [facility] [place] Comment on above: Performed By: #### T HYDS #### [facility] [address] [place] [address] Sodium [Moles/Vol] 139 mmol/L Normal 136 - 145 [facility] Comment on above: Performed By: #### T HYDS #### [facility] [address] [place] [address] Urea nitrogen [Mass/Vol] 22 mg/dL Normal 6 - 23 [facility] [place] Comment on above: Performed By: #### T HYDS #### [facility] [address] [place] [address] PROTEIN ELECTROPHORESIS, RAN DOMon 08-30-2022 TOTAL PROT,URINE SPOT 174 mg/dL High 5 - 24 [facility] [place] Comment on above: Performed By: #### E LUSP #### [facility] [address] [place] [address] PROTEIN ELECTROPHORESIS,SERU 08-30-2022 Protein [Mass/Vol] 7.2 g/dL Normal 6.4 - 8.2 [facility] Comment on above: Performed By: #### E LUSP #### [facility] [address] [place] [address] Performed By: #### T HYDS #### [facility] [address] [place] [address] Blood Pressure Cuff Sizeon 0 08-29-2022 Fall risk assessment b) One or more fall s in the last year [facility] Work Phone: Tobacco use status CPHS b) No [facility] Work Phone: Blood Pressure Cuff Size Adult [facility] Work Phone: CHEST 2 VIEW PA AND LATon CHEST 2 VIEW PA AND LAT Patient Name: ROLANDO PETERS STUDY: CHEST 2 VIEW PA AND LAT; 08/29/2022 4:44 pm INDICATION: weight loss and syncope E11.9: DM w/o complication type II R63.4: Abnormal weight loss. COMPARISON: 10/18/2020 PA and lateral chest x-ray ACCESSION NUMBER(S): [id number] ORDERING CLINICIAN: CELIA AL FINDINGS: PA and lateral radiographs of the chest were provided. CARDIOMEDIASTINAL SILHOUETTE: Slender heart. Extensive vascular calcification. LUNGS: Hyperinflated and essentially clear. No pleural effusion. ABDOMEN: Upper anterior abdominal wall surgical clips. BONES AND SOFT TISSUES: Right breast or anterior chest wall surgical clips. At least mild spinal degenerative changes. IMPRESSION: 1. No evidence of acute cardiopulmonary process. Electronically signed by: ITZEL CHRISTIANSON MD Normal [facility] Complete Blood Count + Diffe rentialon 08-29-2022 Basophils/100 WBC (Bld) 0.9 % 0.0 - 2.0 [facility] Work Phone: Erythrocyte distribution width (RBC) [Ratio] 12.8 % See Below [facility] Work Phone: Comment on above: Reference Range: 11. 5 - 14.5 Hematocrit (Bld) [Volume fraction] 41.4 % See Below [facility] Work Phone: Comment on above: Reference Range: 36. 0 - 46.0 Hemoglobin (Bld) [Mass/Vol] 13.5 g/dL See Below [facility] Work Phone: Comment on above: Reference Range: 12. 0 - 16.0 Lymphocytes/100 WBC (Bld) 18.0 % See Below [facility] Work Phone: Comment on above: Reference Range: 13. 0 - 44.0 MCHC (RBC) [Mass/Vol] 32.6 g/dL See Below [facility] Work Phone: Comment on above: Reference Range: 32. 0 - 36.0 MCV (RBC) [Entitic vol] 93 fL 80 - 100 [facility] Work Phone: Monocytes/100 WBC (Bld) 7.6 % 2.0 - 10.0 [facility] Work Phone: Neutrophils/100 WBC (Bld) 70.6 % See Below [facility] Work Phone: Comment on above: Reference Range: 40. 0 - 80.0 Platelets (Bld) [#/Vol] 254 10*3/uL 150 - 450 [facility] Work Phone: RBC (Bld) [#/Vol] 4.47 {x10E12/L} See Below [facility] Work Phone: Comment on above: Reference Range: 4.0 0 - 5.20 WBC (Bld) [#/Vol] 8.9 10*3/uL 4.4 - 11.3 [facility] Work Phone: Complete Blood Count + Differential 0.08 {x10E9/L} See Below [facility] Work Phone: Comment on above: Reference Range: 0.0 0 - 0.10 Complete Blood Count + Differential 0.22 {x10E9/L} See Below [facility] Work Phone: Comment on above: Reference Range: 0.0 0 - 0.40 Complete Blood Count + Differential 0.68 {x10E9/L} See Below [facility] Work Phone: Comment on above: Reference Range: 0.0 5 - 0.80 Complete Blood Count + Differential 1.60 {x10E9/L} See Below [facility] Work Phone: Comment on above: Reference Range: 0.8 0 - 3.00 Complete Blood Count + Differential 6.29 {x10E9/L} above high threshold See Below [facility] Work Phone: Comment on above: Reference Range: 1.6 0 - 5.50 Complete Blood Count + Differential 2.5 % 0.0 - 6.0 [facility] Work Phone: Complete Blood Count + Differential 0.4 % 0.0 - 0.9 [facility] Work Phone: Comment on above: Immature Granulocyte Count (IG) includes promyelocytes, myelocytes and metamyelocytes but does not include bands. Percent differential counts (%) should be interpreted in the context of the absolute cell counts (cells/L). Complete Blood Count + Differential 0.0 {/100_WBC} 0.0-0.0 [facility] Work Phone: Laboratory - Chemistry and C hemistry - challengeon 08-29-2022 Albumin BCP dye [Mass/Vol] 4.9 g/dL 3.4 - 5.0 [facility] Work Phone: ALP [Catalytic activity/Vol] 46 U/L 33 - 136 [facility] Work Phone: ALT With P-5'-P [Catalytic activity/Vol] 13 U/L 7 - 45 [facility] Work Phone: Comment on above: Patients treated wit h Sulfasalazine may generate falsely decreased results for ALT. Anion gap [Moles/Vol] 19 mmol/L 10 - 20 [facility] Work Phone: AST With P-5'-P [Catalytic activity/Vol] 15 U/L 9 - 39 [facility] Work Phone: Bilirubin [Mass/Vol] 0.7 mg/dL 0.0 - 1.2 [facility] Work Phone: Calcium [Mass/Vol] 9.7 mg/dL 8.6 - 10.6 [facility] Work Phone: Chloride [Moles/Vol] 100 mmol/L 98 - 107 [facility] Work Phone: CO2 [Moles/Vol] 25 mmol/L 21 - 32 [facility] Work Phone: Creatinine [Mass/Vol] 0.87 mg/dL See Below [facility] Work Phone: Comment on above: Reference Range: 0.5 0 - 1.05 Glucose [Mass/Vol] 111 mg/dL above high threshold 74 - 99 [facility] Work Phone: Potassium [Moles/Vol] 4.7 mmol/L 3.5 - 5.3 [facility] Work Phone: Sodium [Moles/Vol] 139 mmol/L 136 - 145 [facility] Work Phone: Urea nitrogen [Mass/Vol] 22 mg/dL 6 - 23 [facility] Work Phone: Laboratory - Urinalysison Protein (U) [Mass/Vol] 174 mg/dL above hig h threshold 5 - 24 [facility] Work Phone: No Panel Informationon 08-29 Normal [facility] Work Phone: 69 {mL/min/1.73m2} >90 [facility] Work Phone: Comment on above: CALCULATIONS OF [place] MATED GFR ARE PERFORMED USING THE 2020 CKD-EPI STUDY REFIT EQUATION WITHOUT THE RACE VARIABLE FOR THE IDMS-TRACEABLE CREATININE METHODS.https://jasn.asnjournals.org/content/early/ ASN.1519783597 4.0 % See Below [facility] Work Phone: Comment on above: Reference Range: Not Established 5.6 % See Below [facility] Work Phone: Comment on above: Reference Range: Not Established 2.8 % See Below [facility] Work Phone: Comment on above: Reference Range: Not Established 1.7 % See Below [facility] Work Phone: Comment on above: Reference Range: Not Established 85.9 % See Below [facility] Work Phone: Comment on above: Reference Range: Not Established ABNORMAL [facility] Work Phone: Comment on above: Marked proteinuria. Office Visit (Family Medicin e)on 08-29-2022 Follow-up visit Diagnoses/Problems Syncope (780.2) (R55) DM w/o complication type II (250.00) (E11.9) Near syncope (780.2) (R55) Abnormal weight loss (783.21) (R63.4) Orders Abnormal weight loss Complete Blood Count + Differential; Status:Active - Retrospective Authorization; Requested for:29Aug2022; Comprehensive Metabolic Panel; Status:Active - Retrospective Authorization; Requested for:29Aug2022; PROTEIN ELECTROPHORESIS, RANDOM U; Status:Active - Retrospective Authorization; Requested for:29Aug2022; PROTEIN ELECTROPHORESIS,SERUM; Status:Active - Retrospective Authorization; Requested for:29Aug2022; Abnormal weight loss, DM w/o complication type II Xray Lumbosacral Spine Min 4 View; Status:Hold For - Scheduling; Requested for:29Aug2022; Radiologist to Determine Optimal Study : Y What are the patient's signs and symptoms? : weight loss and syncope Abnormal weight loss, DM w/o complication type II, Near syncope Xray Chest 2 View PA + Lateral; Status:Hold For - Scheduling; Requested for:29Aug2022; Radiologist to Determine Optimal Study : Y What are the patient's signs and symptoms? : weight loss and syncope DM w/o complication type II, Near syncope Echocardiogram; Status:Hold For - Scheduling; Requested for:29Aug2022; Patient Discussion/Summary 1. Patient to have echocardiogram 2. Patient to have additional blood work performed 3. Patient to have further w/u for her syncope with cardiology, Dr. Jerome 4. Patient to have workup for her weight loss 5. Patient to call if questions or concerns Chief Complaint Fainted inside [employer] in July. Also abnormal weight loss. History of Present Illness Patient explains that she fainted inside [employer] in July. Also abnormal weight loss. She has had increased back pain. She just wanted to sit down and was having difficulty with lightheadedness. She was in the store for a few hours and then went up to the pond register to pay and has had increased pain. She just wanted to sit down and thought she was going to sit down. She did get fuzzy. She came to and three people were standing over her. Paramedics were called. Sugar, bp, ekg were all normal but she did not go to the ER. Sometimes when she gets up from sitting she gets lightheaded. She states this will happen for seconds. She has had some mild heartburn but this is better since the last few weeks. Lately she has been feeling decent. She does drink about 1/2 bottle of wine daily. She sometimes will drink a martini instead. 'Scores and Scales' PHQ-9 [id number] 02:37PM PHQ-9 Depression Severity PHQ-9 #1. Little interest or pleasure in doing things2-More than half the days PHQ-9 #2. Feeling down, depressed, or hopelesS2-More than half the days PHQ-9 #3. Trouble falling or staying asleep, or sleeping too much2-More than half the days PHQ-9 #4. Feeling tired or having little energy3-Nearly every day PHQ-9 #5. Poor appetite or overeating2-More than half the days PHQ-9 #6. Feeling bad about yourself or you are a failure or that you have let yourself or your family down3-Nearly every day PHQ-9 #7. Trouble concentrating on things, such as reading the newspaper or watch television1-Several days PHQ-9 #8. Moving or speaking so slowly that other people could have noticed. Or the opposite-being so fidgety or restless that you have been moving around a lot more than usual1-Several days PHQ-9 #9. Thoughts that you would be better off , or of hurting yourself0-Not at all PHQ-9 #10. If you checked off any problems, how difficult have these problems made it for you to do your work, take care of things at home, or get along with other people?Somewhat Difficult PHQ-9 Total Score (Please update problem list based on total score)16 Review of Systems Constitutional: feeling poorly and feeling tired, but as noted in HPI, no chills, no fever and no night sweats. Eyes: dryness of the eyes, but no blurred vision, no eyesight problems and no eye pain. ENT: earache, but no discharge from the ear(s), the ears do not feel full, no hearing loss, no nasal congestion, no nasal discharge, no postnasal drip, no hoarseness and no sore throat. Neck: no mass(es). Cardiovascular: no chest pain, no palpitations and no syncope. Respiratory: no cough, no shortness of breath at rest and no wheezing. Gastrointestinal: no abdominal pain, no blood in stools, no constipation, no diarrhea, no melena, no nausea, no rectal pain and no vomiting. 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 Normal [employer] PROTEIN ELECTROPHORESIS,SERU 08-29-2022 Albumin [Mass/Vol] 4.5 g/dL 3.4 - 5.0 [facility] [place] Phone: Protein [Mass/Vol] 7.2 g/dL 6.4 - 8.2 [facility] Work Phone: PROTEIN ELECTROPHORESIS,SERUM NORMAL [facility] Work Phone: PROTEIN ELECTROPHORESIS,SERUM 0.9 g/dL 0.5 - 1.4 [facility] Work Phone: PROTEIN ELECTROPHORESIS,SERUM 0.8 g/dL 0.4 - 1.1 [facility] Work Phone: PROTEIN ELECTROPHORESIS,SERUM 0.3 g/dL 0.2 - 0.6 [facility] Work Phone: Path Review Lianne 08-29-2022 Path Review JOSE FAROOQ [facility] Work Phone: Comment on above: By her/his signature above, the Pathologist listed as making the final interpretation certifies that she/he has personally reviewed this case. Radiologyon 08-29-2022 XR Chest 2 Views Normal [facility] Work Phone: SPINE, LUMBOSACRAL; MIN 4 EWSon 08-29-2022 SPINE, LUMBOSACRAL; MIN 4 VIEWS Patient Name: ROLANDO PETERS STUDY: SPINE, LUMBOSACRAL MIN 4 VIEWS; ; 08/29/2022 4:44 pm INDICATION: weight loss and syncope E11.9: DM w/o complication type II R63.4: Abnormal weight loss. COMPARISON: 02/13/2017 lumbar spine radiographs ACCESSION NUMBER(S): [id number] ORDERING CLINICIAN: CELIA AL FINDINGS: No fracture, lytic or blastic lesion or spondylolysis is seen. Ffjw-tz-riredkkr facet joint DJD is present at least on the left at L3-4 and L5-S1 and on the right at L3-4 and L4-5. The L5-S1 disc space is mildly narrowed. The lumbar spine is normally aligned. The SI joints are unremarkable. Tiny disc margin spurs, thoracoabdominal junction surgical clips and extensive vascular calcification are noted. IMPRESSION: Degenerative changes. Electronically signed by: ITZEL CHRISTIANSON MD Normal [facility] Office Visit (Family Medicin e)on 08-02-2022 Follow-up visit Diagnoses/Problems COVID-19 (079.89) (U07.1) Nasal congestion (478.19) (R09.81) Rhinorrhea (478.19) (J34.89) Provider Impressions COVID-19 illness Nasal congestion Rhinorrhea Patient home tested positive today for COVID. Overall she states her symptoms just feeling a head cold. She denies any difficulty breathing or chest pain. She denies any other symptoms at this time. She states that she had COVID previously back in March and states that her symptoms were much worse then. She had been on Paxil but at that time overall she feels okay. Discussed yssg-jbk-gkisphd treatment with fluticasone nasal spray and oral cetirizine. She states that she has these at home. Discussed making sure she is staying well-hydrated and getting plenty of rest. Discussed other skhm-zna-clyxgnt medications that she can use. Discussed Paxlovid as well as side effects and tensional benefits. She states she does not feel nearly as bad this time and prefers to defer treatment with Paxlovid. Discussed signs and symptoms to watch for that would require immediate attention in the emergency department. She is understanding and agreeable with plan. She will follow-up if symptoms do not improve. Chief Complaint Cough, nasal drainage, sore throat. X yesterday. Pos for covid today. An interactive audio and video telecommunication system which permits real time communications between the patient (at the originating site) and provider (at the distant site) was utilized to provide this telehealth service. Verbal consent was requested and obtained from ROLANDO PETERS on this date, 08/02/2022 10:00 AM , for a telehealth visit. History of Present Illness She just feels like she has a head cold. Yesterday she had some congestion and then some rhinorrhea. So far this seems a bit better today. No fevers or chills or other full body symptoms. No chest pain or trouble breathing. No abdominal pain. She has not taken anything so far. She has taken Paxlovid in the past before. She last tested positive back ion March. At that time she believes all of her symptoms were much worse than it currently is now. Home COVID testing was positive today. 'Scores and Scales' PHQ-9 [id number] 02:37PM PHQ-9 Depression Severity PHQ-9 #1. Little interest or pleasure in doing things2-More than half the days PHQ-9 #2. Feeling down, depressed, or hopelesS2-More than half the days PHQ-9 #3. Trouble falling or staying asleep, or sleeping too much2-More than half the days PHQ-9 #4. Feeling tired or having little energy3-Nearly every day PHQ-9 #5. Poor appetite or overeating2-More than half the days PHQ-9 #6. Feeling bad about yourself or you are a failure or that you have let yourself or your family down3-Nearly every day PHQ-9 #7. Trouble concentrating on things, such as reading the newspaper or watch television1-Several days PHQ-9 #8. Moving or speaking so slowly that other people could have noticed. Or the opposite-being so fidgety or restless that you have been moving around a lot more than usual1-Several days PHQ-9 #9. Thoughts that you would be better off , or of hurting yourself0-Not at all PHQ-9 #10. If you checked off any problems, how difficult have these problems made it for you to do your work, take care of things at home, or get along with other people?Somewhat Difficult PHQ-9 Total Score (Please update problem list based on total score)16 Review of Systems Constitutional: no chills, not feeling poorly, not feeling tired and no fever. ENT: nasal congestion, postnasal drip and rhinorrhea , but no nasal discharge. Cardiovascular: no chest pain, the heart rate is not fast and the heart rate is not slow. Respiratory: no cough, no shortness of breath during exertion and no shortness of breath at rest. Gastrointestinal: no abdominal pain, no constipation, no diarrhea, no nausea and no vomiting. Musculoskeletal: no arthralgias and no myalgias. 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.90) (M85.9) DM w/o complication type II (250.00) (E11.9) Encounter for screening colonoscopy (V76.51) (Z12.11) Flu-like symptoms (780.99) (R68.89) Gout (274.9) (M10.9) Hematuria, microscopic (599.72) (R31.29) History of breast cancer (V10.3) (Z85.3) Hyperlipidemia (272.4) (E78.5) Hypertension, unspecified type (401.9) (I10) Hypertriglyceridemia (272.1) (E78.1) Low back pain (724.2) (M54.50) Mass of left submandibular region (784.2) (R22.0) Need for vaccination (V05.9) (Z23) INGA (obstructive sleep apnea) (327.23) (G47.33) Osteoporosis (733.00) (M81.0) Persistent cough (786.2) (R05.3) Plantar fasciitis (728.71) (M72.2) Proteinuria (791.0) (R80.9) Right foot pain (729.5) (M79.671) Right hip pain (719.45) (M25.551) Screening for breast cancer (V76.10) (Z12.39) Screening for colon cancer (V76.51) (Z12.11) Sialoadenitis of submandibular (more content not included)... [facility] Joe catherine)on 07-14-2022 Follow-up visit Diagnoses/Problems Acute bronchitis (466.0) (J20.9) Orders PMH: History of acute bronchitis Renew: Doxycycline Hyclate 100 MG Oral Capsule; TAKE 1 CAPSULE EVERY 12 HOURS DAILY Patient Discussion/Summary 1. Patient to start on antibiotics 2. Patient to continue on her inhaler 3. Patient to call if questions or concerns Chief Complaint Cough with chest congestion, nasal drainage, left ear pain. X Thursday. Neg for covid. An interactive audio and video telecommunication system which permits real time communications between the patient (at the originating site) and provider (at the distant site) was utilized to provide this telehealth service. Verbal consent was requested and obtained from ROLANDO PETERS on this date, 07/14/2022 10:00 AM , for a telehealth visit. History of Present Illness Patient states she had cough with chest congestion, nasal drainage, left ear pain since Thursday. Neg for covid. She thinks that this was her normal sinus during the change of season. She denies any fever or chills. 'Scores and Scales' PHQ-9 [id number] 02:37PM PHQ-9 Depression Severity PHQ-9 #1. Little interest or pleasure in doing things2-More than half the days PHQ-9 #2. Feeling down, depressed, or hopelesS2-More than half the days PHQ-9 #3. Trouble falling or staying asleep, or sleeping too much2-More than half the days PHQ-9 #4. Feeling tired or having little energy3-Nearly every day PHQ-9 #5. Poor appetite or overeating2-More than half the days PHQ-9 #6. Feeling bad about yourself or you are a failure or that you have let yourself or your family down3-Nearly every day PHQ-9 #7. Trouble concentrating on things, such as reading the newspaper or watch television1-Several days PHQ-9 #8. Moving or speaking so slowly that other people could have noticed. Or the opposite-being so fidgety or restless that you have been moving around a lot more than usual1-Several days PHQ-9 #9. Thoughts that you would be better off , or of hurting yourself0-Not at all PHQ-9 #10. If you checked off any problems, how difficult have these problems made it for you to do your work, take care of things at home, or get along with other people?Somewhat Difficult PHQ-9 Total Score (Please update problem list based on total score)16 Review of Systems Constitutional: feeling poorly and feeling tired, but as noted in HPI, no chills, no fever and no night sweats. Eyes: dryness of the eyes, but no blurred vision, no eyesight problems and no eye pain. ENT: earache, nasal congestion, postnasal drip and sore throat, but no discharge from the ear(s), the ears do not feel full, no hearing loss, no nasal discharge and no hoarseness. Neck: no mass(es). Cardiovascular: no chest pain, no palpitations and no syncope. Respiratory: no cough, no shortness of breath during exertion and no wheezing. 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.90) (M85.9) DM w/o complication type II (250.00) (E11.9) Encounter for screening colonoscopy (V76.51) (Z12.11) Flu-like symptoms (780.99) (R68.89) Gout (274.9) (M10.9) Hematuria, microscopic (599.72) (R31.29) History of breast cancer (V10.3) (Z85.3) Hyperlipidemia (272.4) (E78.5) Hypertension, unspecified type (401.9) (I10) Hypertriglyceridemia (272.1) (E78.1) Low back pain (724.2) (M54.50) Mass of left submandibular region (784.2) (R22.0) Need for vaccination (V05.9) (Z23) INGA (obstructive sleep apnea) (327.23) (G47.33) Osteoporosis (733.00) (M81.0) Persistent cough (786.2) (R05.3) Plantar fasciitis (728.71) (M72.2) Proteinuria (791.0) (R80.9) Right foot pain (729.5) (M79.671) Right hip pain (719.45) (M25.551) Screening for breast cancer (V76.10) (Z12.39) Screening for colon cancer (V76.51) (Z12.11) 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) Vitamin D deficiency (268.9) (E55.9) Past Medical History History of Acute frontal sinusitis (461.1) (J01.10) Resolved Date: 31 Oct 2020 History of Encounter for long-term (current) use of medications (V58.69) (Z79.899) H/O diabetes mellitus (V12.29) (Z86.39) History of acute bronchitis (V12.69) (Z87.09) Resolved Date: 31 Oct 2020 History of anesthesia problem History of breast cancer (V10.3) (Z85.3) History of fatigue (V13.89) (Z87.898) History of respiratory distress (V12.69) (Z87.09) History of Proteinuria (791.0) (R80.9) Resolved Date: 01 Nov 2021 History of Screening for lipoid disorders (V77.91) (Z13.220) History of Screening for thyroid disorder (V77.0) (Z13.29) Surgical History History of Breast Surgery Mastectomy History of Carotid Artery Exploration History of Cataract Surgery History of Hysterectomy Family History No pertinent family history Family history of arthritis (V17.7) (Z82.61) Family history of heart murmur (V17.49) (Z82.49) Family history of hypertension (V17.49) (Z82.4 (more content not included)... [facility] 06-17-2022 Pharm D Note Reason For Visit A telephone visit (audio only) between the patient (at the originating site) and the provider (at the distant site) was utilized to provide this telehealth service. Pharmacist Clinic: Diabetes Management Follow up 06/17/2022 I had the pleasure of speaking with Ms. ROLANDO PETERS for her DM follow-up. Referring Provider: Celia Al DO __ HISTORY OF PRESENT ILLNESS Patient referred to clinical pharmacy for assistance with diabetes medication management. A1c historically well controlled, most recently 6.5% on 04/25/22, an improvement from prior A1c of 7.3% on 10/29/21. Following initial referral to pharmacy patient was transitioned off Januvia + glipizide onto Jentadueto (Tradjenta / metformin) d/t insurance coverage and for simplification of therapy as well as cost benefit. Patient started therapy with Jentadueto 09/30/21 and has tolerated therapy well. She has increased her Jentadueto from 2.5 mg/1000mg daily to 5 mg/1000mg daily. Sugars did increase slightly following therapy transition and patient believes her prior therapy of Januvia+Glimepiride was slightly more efficacious than current therapy. On 01/07/22 her Jentadueto was increased again from 5 mg/1000 mg daily to 2.5 mg/1000 mg 2 tabs daily to gain the extra 1000 mg of metformin patient wasn't previously taking. She reports her FBG the past month has averaged 120s-130s, can be labile at time. Mentions mild discomfort in the morning and isnt sure the medication or her coffee/creamer are causing. She mentions this is tolerable. Also endorses unexplained weight loss. __ PHARMACY ASSESSMENT Allergies Reviewed? yes Home Pharmacy Reviewed? yes, patient declines pharmacy for future fills, would like to fill with local independent on file No issues reported in regards to accessibility, affordability, adherence, adverse effects, or organization MEDICATION RECONCILIATION - no changes RELEVANT LAB RESULTS CMP + Lipids - see attached DRUG INTERACTIONS - No significant drug-drug interactions exist that require change in therapy __ DIABETES ASSESSMENT CURRENT PHARMACOTHERAPY - Jentadueto (Tradjenta / metformin) 2.5 / 1000 mg XR take 2 tablets by mouth once daily (start 01/07/22) SECONDARY PREVENTION - Statin? Yes; rosuvastatin 10 mg take 1 tablet by mouth daily - OKSANA-I/ARB? Yes; losartan 100 mg take 1 tablet by mouth daily - Aspirin? Yes; aspirin 81 mg take 1 tablet by mouth daily SMBG MEASUREMENTS - detailed log not available during call - trending lower 130s-120s fasting ASSESSMENT OF SMBG MEASUREMENTS - Highest reading: N/A - Lowest reading: N/A - Average: N/A Has the patient experienced any low sugars since last contact? No - Denies symptoms of low blood glucose: sweaty, shaky, anxious, excessive hunger, confusion, lightheaded, nauseous, blurred vision; pt reports she has been symptomatic w/ lows historically Has the patient experienced any high sugars since last contact? No - Denies symptoms of high blood glucose: excessive thirst, frequent urination, fatigue, nausea, shortness of breath, trouble concentrating __ PATIENT EDUCATION/GOALS - Fasting B - 130 mg/dL - Postprandial BG: less than 180 mg/dL - A1c: less than 7% - Encouraged patient to monitor blood sugar daily and maintain log of readings __ RECOMMENDATIONS/PLAN 1. CONTINUE Jentadueto 2.5 / 1000 mg XR take 2 tablets by mouth once daily. 2. Medications are dosed appropriately for current renal and hepatic function, continue to monitor. 3. Encouraged patient to make follow up appt with PCP to go over weight loss she is experiencing. Clinical Pharmacist follow-up: 8-12 weeks Type of Encounter: Virtual Thank you, Matteo Lopez, PharmD, BCPS Verbal consent to manage patient?s drug therapy was obtained from the patient. They were informed they may decline to participate or withdraw from participation in pharmacy services at any time. Active Problems Problems Acute bronchitis, unspecified organism (466.0) (J20.9) Anxiety (300.00) (F41.9) COVID-19 (079.89) (U07.1) Disorder of bone density and structure, unspecified (733.90) (M85.9) DM w/o complication type II (250.00) (E11.9) Encounter for screening colonoscopy (V76.51) (Z12.11) Flu-like symptoms (780.99) (R68.89) Gout (274.9) (M10.9) Hematuria, microscopic (599.72) (R31.29) History of breast cancer (V10.3) (Z85.3) Hyperlipidemia (272.4) (E78.5) Hypertension, unspecified type (401.9) (I10) Hypertriglyceridemia (272.1) (E78.1) Low back pain (724.2) (M54.50) Mass of left submandibular region (784.2) (R22.0) Need for vaccination (V05.9) (Z23) INGA (obstr (more content not included)... Normal [facility] Carotid Duplex Ultrasound Completeon 05-06-2022 VL Carotid Duplex Ultrasound Complete Patient Name: ROLANDO PETERS Ultrasound ACCESSION EXAM DATE/TIME PROCEDURE ORDERING PROVIDER [id number] 05/06/2022 15:08 EDT Carotid Duplex MD JEROME STEPHEN A Ultrasound Complete CPT code 04677 Reason For Exam ( Carotid Duplex Ultrasound Complete) bilateral carotid stenosis Report [facility] -- Carotid Duplex Report Patient Lorraine : 1945 Study 05/06/2022 Name: Rolando (77yrs) Date: Age: 77 Account: [id number] Gender: F Loc: BP: Ordering Physician: Rashi Jerome MD Medical Physics Teacher: Abi Melton RDMS, T Interpreting Physician: Baljeet Nicole MD -- Location: [facility] -- Indications: Stenosis. -- Conclusions 1. Moderate carotid disease present with 60-69% stenosis involving the left internal carotid artery. 2. Moderate carotid disease present with 50-59% stenosis involving the right internal carotid artery. 3. Normal antegrade flow involving the left vertebral artery. 4. Normal antegrade flow involving the right vertebral artery. -- History: Risk factors: Former tobacco use. Age over 75 years. Labs, prior tests, procedures, and surgery: Prior right carotid endarterectomy (2008). -- Study data: Complete carotid duplex study. Grayscale 2D imaging, color Doppler imaging, and spectral Doppler analysis. Location: Vascular laboratory. Objective: Diagnostic evaluation. Procedure: A Ultrasound Report vascular evaluation was performed with the patient in the supine position. Images were obtained using a [employer] vascular ultrasound machine. The study was technically limited due to calcification. -- Findings Carotid/vertebral arteries: Right common carotid: The vessel has irregular plaque. Right internal carotid: The vessel has irregular plaque. Right external carotid: The vessel has irregular plaque. Right vertebral: The arterial flow direction is antegrade. Left vertebral: The arterial flow direction is antegrade. Left common carotid: The vessel has irregular plaque. Left internal carotid: The vessel has irregular plaque. Left external carotid: The vessel is normal; it has no evidence of disease. -- Arterial flow: + +------- ----+ +------ + +Location +PSV(cm/sec)+EDV(cm/sec )+Comment + + +------- ----+ +------ + +R CCA , prox +123 +11 + + + +------- ----+ +------ + +R CCA , mid +101 +0 + + + +------- ----+ +------ + +R CCA , distal+114 +7 + + + +------- ----+ +------ + +R ICA , prox +136 +5 + + + +------- ----+ +------ + +R ICA , mid +160 +13 + + + +------- ----+ +------ + +R ICA , distal+111 +13 + + + +------- ----+ +------ + +R ECA +94 +0 + + + +------- ----+ +------ + +R vertebral +53 +10 + + + +------- ----+ +------ + +R subclavian +201 +0 + + + +------- ----+ +------ + +L CCA , prox +91 +13 + + + +------- ----+ +------ + +L CCA , mid +98 +15 + + + +------- ----+ +------ + +L CCA , distal+94 +6 + + + +------- ----+ +------ + +L ICA , prox +199 +18 +04/29/2021 229 cm/sec.+ + +------- ----+ +------ + +L ICA , mid +65 +12 + + + +------- ----+ +------ + +L ICA , distal+68 +17 + + + +------- ----+ +------ + +L ECA +175 +0 + + + +------- ----+ +------ + +L vertebral +35 +6 + + + +------- ----+ +------ + +L subclavian +228 +0 + + (more content not included)... Normal [employer] VL DUP CAROTID BILATERALon 0 05-06-2022 [facility] [employer] [facility] -- Carotid Duplex Report Patient Lorraine BROCK: 1945 Study 05/06/2022 Name: Rolando (77yrs) Date: Age: 77 Account: [id number] Gender: F Loc: BP: Ordering Physician: Rashi Jerome MD Medical Physics Teacher: Abi Melton RDMS, RVT Interpreting Physician: Baljeet Nicole MD -- Location: [facility] -- Indications: Stenosis. -- Conclusions 1. Moderate carotid disease present with 60-69% stenosis involving the left internal carotid artery. 2. Moderate carotid disease present with 50-59% stenosis involving the right internal carotid artery. 3. Normal antegrade flow involving the left vertebral artery. 4. Normal antegrade flow involving the right vertebral artery. -- History: Risk factors: Former tobacco use. Age over 75 years. Labs, prior tests, procedures, and surgery: Prior right carotid endarterectomy (2008). -- Study data: Complete carotid duplex study. Grayscale 2D imaging, color Doppler imaging, and spectral Doppler analysis. Location: Vascular laboratory. Objective: Diagnostic evaluation. Procedure: A vascular evaluation was performed with the patient in the supine position. Images were obtained using a [employer] vascular ultrasound machine. The study was technically limited due to calcification. -- Findings Carotid/vertebral arteries: Right common carotid: The vessel has irregular plaque. Right internal carotid: The vessel has irregular plaque. Right external carotid: The vessel has irregular plaque. Right vertebral: The arterial flow direction is antegrade. Left vertebral: The arterial flow direction is antegrade. Left common carotid: The vessel has irregular plaque. Left internal carotid: The vessel has irregular plaque. Left external carotid: The vessel is normal; it has no evidence of disease. -- Arterial flow: + +------- ----+ +------ + +Location +PSV(cm/sec)+EDV(cm/sec )+Comment + + +------- ----+ +------ + +R CCA , prox +123 +11 + + + +------- ----+ +------ + +R CCA , mid +101 +0 + + + +------- ----+ +------ + +R CCA , distal+114 +7 + + + +------- ----+ +------ + +R ICA , prox +136 +5 + + + +------- ----+ +------ + +R ICA , mid +160 +13 + + + +------- ----+ +------ + +R ICA , distal+111 +13 + + + +------- ----+ +------ + +R ECA +94 +0 + + + +------- ----+ +------ + +R vertebral +53 +10 + + + +------- ----+ +------ + +R subclavian +201 +0 + + + +------- ----+ +------ + +L CCA , prox +91 +13 + + + +------- ----+ +------ + +L CCA , mid +98 +15 + + + +------- ----+ +------ + +L CCA , distal+94 +6 + + + +------- ----+ +------ + +L ICA , prox +199 +18 +04/29/2021 229 cm/sec.+ + +------- ----+ +------ + +L ICA , mid +65 +12 + + + +------- ----+ +------ + +L ICA , distal+68 +17 + + + +------- ----+ +------ + +L ECA +175 +0 + + + +------- ----+ +------ + +L vertebral +35 +6 + + +- (more content not included)... [facility] Baljeet Nicole MD - 05/06/2022 [facility] -- Carotid Duplex Report Patient Lorraine, : 1945 Study 05/06/2022 Name: Rolando (77yrs) Date: Age: 77 Account: [id number] Gender: F Loc: BP: Ordering Physician: Rashi Jerome MD Medical Physics Teacher: Abi Melton RDMS, T Interpreting Physician: Baljeet Nicole MD -- Location: [facility] -- Indications: Stenosis. -- Conclusions 1. Moderate carotid disease present with 60-69% stenosis involving the left internal carotid artery. 2. Moderate carotid disease present with 50-59% stenosis involving the right internal carotid artery. 3. Normal antegrade flow involving the left vertebral artery. 4. Normal antegrade flow involving the right vertebral artery. -- History: Risk factors: Former tobacco use. Age over 76 years. Labs, prior tests, procedures, and surgery: Prior right carotid endarterectomy (2008). -- Study data: Complete carotid duplex study. Grayscale 2D imaging, color Doppler imaging, and spectral Doppler analysis. Location: Vascular laboratory. Objective: Diagnostic evaluation. Procedure: A vascular evaluation was performed with the patient in the supine position. Images were obtained using a [employer] vascular ultrasound machine. The study was technically limited due to calcification. -- Findings Carotid/vertebral arteries: Right common carotid: The vessel has irregular plaque. Right internal carotid: The vessel has irregular plaque. Right external carotid: The vessel has irregular plaque. Right vertebral: The arterial flow direction is antegrade. Left vertebral: The arterial flow direction is antegrade. Left common carotid: The vessel has irregular plaque. Left internal carotid: The vessel has irregular plaque. Left external carotid: The vessel is normal; it has no evidence of disease. -- Arterial flow: + +------- ----+ +------ + +Location +PSV(cm/sec)+EDV(cm/sec )+Comment + + +------- ----+ +------ + +R CCA , prox +123 +11 + + + +------- ----+ +------ + +R CCA , mid +101 +0 + + + +------- ----+ +------ + +R CCA , distal+114 +7 + + + +------- ----+ +------ + +R ICA , prox +136 +5 + + + +------- ----+ +------ + +R ICA , mid +160 +13 + + + +------- ----+ +------ + +R ICA , distal+111 +13 + + + +------- ----+ +------ + +R ECA +94 +0 + + + +------- ----+ +------ + +R vertebral +53 +10 + + + +------- ----+ +------ + +R subclavian +201 +0 + + + +------- ----+ +------ + +L CCA , prox +91 +13 + + + +------- ----+ +------ + +L CCA , mid +98 +15 + + + +------- ----+ +------ + +L CCA , distal+94 +6 + + + +------- ----+ +------ + +L ICA , prox +199 +18 +04/29/2021 229 cm/sec.+ + +------- ----+ +------ + +L ICA , mid +65 +12 + + + +------- ----+ +------ + +L ICA , distal+68 +17 + + + +------- ----+ +------ + +L ECA +175 +0 + + + +------- ----+ +------ + +L vertebral +35 +6 + + + +------- ----+ +------ + +L subclavian +228 +0 + + + +------- ----+ +------ + Velocity ratios: + -+-----+-----+ + +R PSV+L PSV+ + -+-----+-----+ +Max ICA / Mid CCA Ratio+1.57 +2.02 + + -+----- (more content not included)... [employer] Phone: Radiology Study observation (narrative) [employer] Phone: VL DUP CAROTID BILATERALOrde red By: Baljeet Nicole on 05-06-2022 [facility] Work Phone: CBC AND DIFFERENTIALon 04-26 % AUTOMATED IMMATURE GRAN 0.3 % Normal 0.0 - 0.9 [facility] Comment on above: Result Comment: Yue ture Granulocyte Count (IG) includes promyelocytes, myelocytes and metamyelocytes but does not include bands. Percent differential counts (%) should be interpreted in the context of the absolute cell counts (cells/L). Performed By: #### E LUSP #### [facility] [address] [place] [address] Basophils (Bld) [#/Vol] 0.09 10*3/uL Normal 0.00 - 0.1 0 [facility] Comment on above: Performed By: #### E LUSP #### [facility] [address] [place] [address] Basophils/100 WBC (Bld) 1.6 % Normal 0.0 - 2.0 [facility] Comment on above: Performed By: #### E LUSP #### [facility] [address] [place] [address] Eosinophils (Bld) [#/Vol] 0.18 10*3/uL Normal 0.00 - 0.40 [facility] Comment on above: Performed By: #### E LUSP #### [facility] [address] [place] [address] Eosinophils/100 WBC (Bld) 3.1 % Normal 0.0 - 6.0 [facility] Comment on above: Performed By: #### E LUSP #### [facility] [address] [place] [address] Erythrocyte distribution width (RBC) [Ratio] 13.0 % Normal 11.5 - 14.5 [facility] Comment on above: Performed By: #### E LUSP #### [place] [address] [place] [address] Hematocrit (Bld) [Volume fraction] 41.9 % Normal 36.0 - 46.0 [facility] Comment on above: Performed By: #### E LUSP #### [facility] [address] [place] [address] Hemoglobin (Bld) [Mass/Vol] 13.7 g/dL Normal 12.0 - 16.0 [facility] Comment on above: Performed By: #### E LUSP #### [facility] [address] [place] [address] Lymphocytes (Bld) [#/Vol] 1.16 10*3/uL Normal 0.80 - 3.00 [facility] Comment on above: Performed By: #### E LUSP #### [facility] [address] [place] [address] Lymphocytes/100 WBC (Bld) 20.2 % Normal 13.0 - 44.0 [facility] Comment on above: Performed By: #### E LUSP #### [facility] [address] [place] [address] MCHC (RBC) [Mass/Vol] 32.7 g/dL Normal 32.0 - 36.0 [facility] Comment on above: Performed By: #### E LUSP #### [facility] [address] [place] [address] MCV (RBC) [Entitic vol] 91 fL Normal 80 - 100 [facility] Comment on above: Performed By: #### E LUSP #### [facility] [address] [place] [address] Monocytes (Bld) [#/Vol] 0.44 10*3/uL Normal 0.05 - 0.8 0 [facility] Comment on above: Performed By: #### E LUSP #### [facility] [address] [place] [address] Monocytes/100 WBC (Bld) 7.7 % Normal 2.0 - 10.0 [facility] Comment on above: Performed By: #### E LUSP #### [facility] [address] [place] [address] Neutrophils (Bld) [#/Vol] 3.84 10*3/uL Normal 1.60 - 5.50 [facility] Comment on above: Performed By: #### E LUSP #### [facility] [address] [place] [address] Neutrophils/100 WBC (Bld) 67.1 % Normal 40.0 - 80.0 [facility] Comment on above: Performed By: #### E LUSP #### [facility] [address] [place] [address] NUCLEATED RBC 0.0 /100 WBC Normal 0.0-0.0 [facility] Comment on above: Performed By: #### E LUSP #### [facility] [address] [place] [address] Platelets (Bld) [#/Vol] 235 10*3/uL Normal 150 - 450 [facility] Comment on above: Performed By: #### E LUSP #### [facility] [address] [place] [address] RBC 4.61 x10E12/L Normal 4.00 - 5.20 [facility] Comment on above: Performed By: #### E LUSP #### [facility] [address] [place] [address] WBC (Bld) [#/Vol] 5.7 10*3/uL Normal 4.4 - 11.3 [facility] Comment on above: Performed By: #### E LUSP #### [facility] [address] [place] [address] HEMOGLOBIN A1Con 04-26-2022 Glucose [Mass/Vol] 140 mg/dL Normal [facility] Comment on above: Performed By: #### E LUSP #### [facility] [address] [place] [address] HbA1c (Bld) [Mass fraction] 6.5 % Abnormal [facility] Comment on above: Result Comment: Diag nosis of Diabetes-Adults Non-Diabetic: < or = 5.6% Increased risk for developing diabetes: 5.7-6.4% Diagnostic of diabetes: > or = 6.5% . Monitoring of Diabetes Age (y) Therapeutic Goal (%) Adults: >18 <7.0 Pediatrics: 13-18 <7.5 7-12 <8.0 0- 6 7.5-8.5 [employer]. Diabetes Care 33(S1), Aug 2009. Performed By: #### E LUSP #### [facility] [address] [place] [address] PARATHYROID HORMONE,INTACTon 04-26-2022 PARATHYROID HORMONE,INTACT 56.2 pg/mL Normal 18.5 - 88.0 [facility] Comment on above: Performed By: #### T HYDS #### [facility] [address] [place] [address] RENAL FUNCTION PANELon 04-26 Albumin [Mass/Vol] 4.4 g/dL Normal 3.4 - 5.0 [facility] Comment on above: Performed By: #### E LUSP #### [facility] [address] [place] [address] Anion gap [Moles/Vol] 16 mmol/L Normal 10 - 20 [facility] Comment on above: Performed By: #### E LUSP #### [facility] [address] [place] [address] Calcium [Mass/Vol] 9.8 mg/dL Normal 8.6 - 10.6 [facility] Comment on above: Performed By: #### E LUSP #### [facility] [address] [place] [address] Chloride [Moles/Vol] 99 mmol/L Normal 98 - 107 [facility] Comment on above: Performed By: #### E LUSP #### [facility] [address] [place] [address] Creatinine [Mass/Vol] 1.04 mg/dL Normal 0.50 - 1.05 [facility] Comment on above: Performed By: #### E LUSP #### [facility] [address] [place] [address] GFR/1.73 sq M.predicted among non-blacks MDRD (S/P/Bld) [Vol rate/Area] 56 mL/min/{1.73_m2} Abnormal >90 [facility] Comment on above: Result Comment: CALC ULATIONS OF ESTIMATED GFR ARE PERFORMED USING THE 2020 CKD-EPI STUDY REFIT EQUATION WITHOUT THE RACE VARIABLE FOR THE IDMS-TRACEABLE CREATININE METHODS. https://jasn.asnjournals.org/content//ASN.2020 904995 Performed By: #### E LUSP #### [facility] [address] [place] [address] Glucose [Mass/Vol] 156 mg/dL High 74 - 99 [facility] Comment on above: Performed By: #### E LUSP #### [facility] [address] [place] [address] HCO3 (Bld) [Moles/Vol] 28 mmol/L Normal 21 - 32 [facility] Comment on above: Performed By: #### E LUSP #### [facility] [address] [place] [address] Phosphate [Mass/Vol] 3.9 mg/dL Normal 2.5 - 4.9 [facility] Comment on above: Result Comment: The performance characteristics of phosphorus testing in heparinized plasma have been validated by the individual laboratory site where testing is performed. Testing on heparinized plasma is not approved by the FDA; however, such approval is not necessary. Performed By: #### E LUSP #### [facility] [address] [place] [address] Potassium [Moles/Vol] 4.9 mmol/L Normal 3.5 - 5.3 [facility] Comment on above: Performed By: #### E LUSP #### [facility] [address] [place] [address] Sodium [Moles/Vol] 138 mmol/L Normal 136 - 145 [facility] Comment on above: Performed By: #### E LUSP #### [facility] [address] [place] [address] Urea nitrogen [Mass/Vol] 20 mg/dL Normal 6 - 23 [facility] Comment on above: Performed By: #### E LUSP #### [facility] [address] [place] [address] TOTAL PROTEIN, URINE SPOTon 04-26-2022 CREATININE,URINE 107.0 mg/dL Normal 20.0 - 320.0 [facility] Comment on above: Performed By: #### E LUSP #### [facility] [address] [place] [address] T. PROTEIN/CREAT RATIO 1.49 mg/mg Creat High 0.00 - 0.17 [facility] Comment on above: Performed By: #### E LUSP #### [facility] [address] [place] [address] TOTAL PROT,URINE SPOT 159 mg/dL High 5 - 24 [facility] Comment on above: Performed By: #### E LUSP #### [facility] [address] [place] [address] URIC ACIDon 04-26-2022 Urate [Mass/Vol] 8.2 mg/dL High 2.3 - 6.7 [facility] [place] Comment on above: Result Comment: Yarely puncture immediately after or during the administration of Metamizole may lead to falsely low results. Testing should be performed immediately prior to Metamizole dosing. Performed By: #### E LUSP #### [facility] [address] [place] [address] VITAMIN B12on 04-26-2022 Cobalamin (Vitamin B12) [Mass/Vol] 211 pg/mL Normal 211 - 911 [facility] Comment on above: Performed By: #### E LUSP #### [facility] [address] [place] [address] VITAMIN D, 25-HYDROXYon 04-17 VITAMIN D, 25-HYDROXY 41 ng/mL Normal [facility] Comment on above: Result Comment: . DEFICIENCY: < 20 NG/ML INSUFFICIENCY: 20-29 NG/ML SUFFICIENCY: 30-100 NG/ML THIS ASSAY ACCURATELY QUANTIFIES THE SUM OF VITAMIN D3, 25-HYDROXY AND VIT D2,25-HYDROXY. Performed By: #### T HYDS #### [facility] [address] [place] [address] Office Visit (Family Medicin e)on 04-05-2022 Follow-up visit Diagnoses/Problems COVID-19 (079.89) (U07.1) Orders COVID-19 Start: Paxlovid (300/100) 20 x 150 MG AND 10 x 100MG Oral Tablet Therapy Pack; TAKE DIRECTED ON PACKAGING (DISCONTINUE STATIN AND RED YEAST RICE WHILE ON THIS MEDICATION) Gout Temporarily Stop: Colchicine 0.6 MG Oral Tablet (Colcrys) Hyperlipidemia Temporarily Stop: Rosuvastatin Calcium 10 MG Oral Tablet Patient Discussion/Summary Spent 70 minutes and 30 seconds with patient via telehealth visit. Discussion with patient that she will have to hold her statin therapy while taking antiviral medicine. She is not taking colchicine at this time in discussion with her that this is contraindicated with the antiviral medicine. Patient is going to quarantine for 5 to 7 days. She is going to wear a mask for 10 days. She may come out of quarantine if she is without fever for 24 hours and symptoms are improving. If any troubles with high fever or shaking chills or inability eat or drink she will call and let us know. Chief Complaint Tested positive for COVID this morning, requesting Paxlovid, productive cough. A telephone visit (audio only) between the patient (at the originating site) and the provider (at the distant site) was utilized to provide this telehealth service. History of Present Illness Started symptoms yesterday. Patient's had nasal drainage congestion little bit of sore throat. Now getting little bit of cough and congestion. Patient did a COVID test this morning that was positive. Patient's had no shortness of breath no high fever or shaking chills. Patient's had 4 vaccinations for COVID. Patient's had no troubles with nausea no vomiting no loss of smell or taste. 'Scores and Scales' PHQ-9 [id number] 02:37PM PHQ-9 Depression Severity PHQ-9 #1. Little interest or pleasure in doing things2-More than half the days PHQ-9 #2. Feeling down, depressed, or hopelesS2-More than half the days PHQ-9 #3. Trouble falling or staying asleep, or sleeping too much2-More than half the days PHQ-9 #4. Feeling tired or having little energy3-Nearly every day PHQ-9 #5. Poor appetite or overeating2-More than half the days PHQ-9 #6. Feeling bad about yourself or you are a failure or that you have let yourself or your family down3-Nearly every day PHQ-9 #7. Trouble concentrating on things, such as reading the newspaper or watch television1-Several days PHQ-9 #8. Moving or speaking so slowly that other people could have noticed. Or the opposite-being so fidgety or restless that you have been moving around a lot more than usual1-Several days PHQ-9 #9. Thoughts that you would be better off , or of hurting yourself0-Not at all PHQ-9 #10. If you checked off any problems, how difficult have these problems made it for you to do your work, take care of things at home, or get along with other people?Somewhat Difficult PHQ-9 Total Score (Please update problem list based on total score)16 Review of Systems Constitutional: feeling poorly and feeling tired, but no chills. ENT: earache, nasal congestion and nasal discharge, but the ears do not feel full, no hearing loss and no vertigo. Cardiovascular: the heart rate is not fast, the heart rate is not slow, no lower extremity edema, no orthopnea and no palpitations. Respiratory: cough. Gastrointestinal: no bloating, no blood in stools and no constipation. Musculoskeletal: myalgias. 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) DM w/o complication type II (250.00) (E11.9) Encounter for screening colonoscopy (V76.51) (Z12.11) Flu-like symptoms (780.99) (R68.89) Gout (274.9) (M10.9) Hematuria, microscopic (599.72) (R31.29) History of breast cancer (V10.3) (Z85.3) Hyperlipidemia (272.4) (E78.5) Hypertension, unspecified type (401.9) (I10) Hypertriglyceridemia (272.1) (E78.1) Low back pain (724.2) (M54.50) Mass of left submandibular region (784.2) (R22.0) Need for vaccination (V05.9) (Z23) INGA (obstructive sleep apnea) (327.23) (G47.33) Osteoporosis (733.00) (M81.0) Persistent cough (786.2) (R05.3) Plantar fasciitis (728.71) (M72.2) Proteinuria (791.0) (R80.9) Right foot pain (729.5) (M79.671) Right hip pain (719.45) (M25.551) Screening for breast cancer (V76.10) (Z12.39) Screening for colon cancer (V76.51) (Z12.11) 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 Normal [facility] Pharm D Noteon 02-25-2022 Pharm D Note Reason For Visit A telephone visit (audio only) between the patient (at the originating site) and the provider (at the distant site) was utilized to provide this telehealth service. Pharmacist Clinic: Diabetes Management Follow up 02/25/2022 I had the pleasure of speaking with Ms. ROLANDO PETERS for her DM follow-up. Referring Provider: Celia Al, __ HISTORY OF PRESENT ILLNESS Patient referred to clinical pharmacy for assistance with diabetes medication management. A1c historically well controlled, most recently 7.3% on 10/29/21 which was an increase from previous A1c of 6.9% on 10/18/20. Following initial referral to pharmacy patient was transitioned off Januvia + glipizide onto Jentadueto (Tradjenta / metformin) d/t insurance coverage and for simplification of therapy as well as cost benefit. Patient started therapy with Jentadueto 09/30/21 and has tolerated therapy well. She has increased her Jentadueto from 2.5 mg/1000mg daily to 5 mg/1000mg daily. Sugars did increase slightly following therapy transition and patient believes her prior therapy of Januvia+Glimepiride was slightly more efficacious than current therapy. On 01/07/22 her Jentadueto was increased again from 5 mg/1000 mg daily to 2.5 mg/1000 mg 2 tabs daily to gain the extra 1000 mg of metformin patient wasn't previously taking. She reports her FBG the last four weeks range from 130s-140s. No other concerns or side effects with new med dose at this time. __ PHARMACY ASSESSMENT Allergies Reviewed? yes Home Pharmacy Reviewed? yes, patient declines pharmacy for future fills, would like to fill with local independent on file No issues reported in regards to accessibility, affordability, adherence, adverse effects, or organization MEDICATION RECONCILIATION - no changes RELEVANT LAB RESULTS CMP + Lipids - see attached DRUG INTERACTIONS - No significant drug-drug interactions exist that require change in therapy __ DIABETES ASSESSMENT CURRENT PHARMACOTHERAPY - Jentadueto (Tradjenta / metformin) 2.5 / 1000 mg XR take 2 tablets by mouth once daily (start 01/07/22) SECONDARY PREVENTION - Statin? Yes; rosuvastatin 10 mg take 1 tablet by mouth daily - OKSANA-I/ARB? Yes; losartan 100 mg take 1 tablet by mouth daily - Aspirin? Yes; aspirin 81 mg take 1 tablet by mouth daily SMBG MEASUREMENTS - detailed log not available during call - trending lower 140s-150s fasting ASSESSMENT OF SMBG MEASUREMENTS - Highest reading: N/A - Lowest reading: N/A - Average: N/A Has the patient experienced any low sugars since last contact? No - Denies symptoms of low blood glucose: sweaty, shaky, anxious, excessive hunger, confusion, lightheaded, nauseous, blurred vision; pt reports she has been symptomatic w/ lows historically Has the patient experienced any high sugars since last contact? No - Denies symptoms of high blood glucose: excessive thirst, frequent urination, fatigue, nausea, shortness of breath, trouble concentrating __ PATIENT EDUCATION/GOALS - Fasting B - 130 mg/dL - Postprandial BG: less than 180 mg/dL - A1c: less than 7% - Encouraged patient to monitor blood sugar daily and maintain log of readings __ RECOMMENDATIONS/PLAN 1. CONTINUE Jentadueto 2.5 / 1000 mg XR take 2 tablets by mouth once daily. 2. Medications are dosed appropriately for current renal and hepatic function, continue to monitor. Clinical Pharmacist follow-up: 6-8 weeks Type of Encounter: Virtual Thank you, Matteo Lopez, PharmD, [facility] Verbal consent to manage patient?s drug therapy was obtained from the patient. They were informed they may decline to participate or withdraw from participation in pharmacy services at any time. 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) DM w/o complication type II (250.00) (E11.9) Encounter for screening colonoscopy (V76.51) (Z12.11) Flu-like symptoms (780.99) (R68.89) Gout (274.9) (M10.9) Hematuria, microscopic (599.72) (R31.29) History of breast cancer (V10.3) (Z85.3) Hyperlipidemia (272.4) (E78.5) Hypertension, unspecified type (401.9) (I10) Hypertriglyceridemia (272.1) (E78.1) Low back pain (724.2) (M54.50) Mass of left submandibular region (784.2) (R22.0) Need for vaccination (V05.9) (Z23) INGA (obstructive sleep apnea) (327.23) (G47.33) Osteoporosis (733.00) (M81.0) Persistent cough (786.2) (R05.3) Plantar fasciitis (728.71) (M72.2) Proteinuria (791.0) (R80.9) Right foot pain (729.5) (M79.671) Right hip pain (719.45) (M25.551) Scr (more content not included)... Normal [facility] Pharm D Noteon 01-24-2022 Pharm D Note Reason For Visit A telephone visit (audio only) between the patient (at the originating site) and the provider (at the distant site) was utilized to provide this telehealth service. Pharmacist Clinic: Diabetes Management Follow up 01/24/2022 I had the pleasure of speaking with . ROLANDO PETERS for her DM follow-up. Referring Provider: Celia Al DO __ HISTORY OF PRESENT ILLNESS Patient referred to clinical pharmacy for assistance with diabetes medication management. A1c historically well controlled, most recently 7.3% on 10/29/21 which was an increase from previous A1c of 6.9% on 10/18/20. Following initial referral to pharmacy patient was transitioned off Januvia + glipizide onto Jentadueto (Tradjenta / metformin) d/t insurance coverage and for simplification of therapy as well as cost benefit. Patient started therapy with Jentadueto 09/30/21 and has tolerated therapy well. She has increased her Jentadueto from 2.5 mg/1000mg daily to 5 mg/1000mg daily. Sugars did increase slightly following therapy transition and patient believes her prior therapy of Januvia+Glimepiride was slightly more efficacious than current therapy. On 01/07/22 her Jentadueto was increased again from 5 mg/1000 mg daily to 2.5 mg/1000 mg 2 tabs daily to gain the extra 1000 mg of metformin patient wasn't previously taking. She reports her FBG the last two weeks range from 147-155. No other concerns or side effects with new med dose at this time. __ PHARMACY ASSESSMENT Allergies Reviewed? yes Home Pharmacy Reviewed? yes, patient declines pharmacy for future fills, would like to fill with local independent on file No issues reported in regards to accessibility, affordability, adherence, adverse effects, or organization MEDICATION RECONCILIATION - no changes RELEVANT LAB RESULTS CMP + Lipids - see attached DRUG INTERACTIONS - No significant drug-drug interactions exist that require change in therapy __ DIABETES ASSESSMENT CURRENT PHARMACOTHERAPY - Jentadueto (Tradjenta / metformin) 2.5 / 1000 mg XR take 2 tablets by mouth once daily (start 01/07/22) SECONDARY PREVENTION - Statin? Yes; rosuvastatin 10 mg take 1 tablet by mouth daily - OKSANA-I/ARB? Yes; losartan 100 mg take 1 tablet by mouth daily - Aspirin? Yes; aspirin 81 mg take 1 tablet by mouth daily SMBG MEASUREMENTS - detailed log not available during call - trending lower 140s-150s fasting ASSESSMENT OF SMBG MEASUREMENTS - Highest reading: N/A - Lowest reading: N/A - Average: N/A Has the patient experienced any low sugars since last contact? No - Denies symptoms of low blood glucose: sweaty, shaky, anxious, excessive hunger, confusion, lightheaded, nauseous, blurred vision; pt reports she has been symptomatic w/ lows historically Has the patient experienced any high sugars since last contact? No - Denies symptoms of high blood glucose: excessive thirst, frequent urination, fatigue, nausea, shortness of breath, trouble concentrating __ PATIENT EDUCATION/GOALS - Fasting B - 130 mg/dL - Postprandial BG: less than 180 mg/dL - A1c: less than 7% - Encouraged patient to monitor blood sugar daily and maintain log of readings __ RECOMMENDATIONS/PLAN 1. CONTINUE Jentadueto 2.5 / 1000 mg XR take 2 tablets by mouth once daily. 2. Medications are dosed appropriately for current renal and hepatic function, continue to monitor. Clinical Pharmacist follow-up: 02/25/22 - 02/28/22 Type of Encounter: Virtual Thank you, Matteo Lopez, PharmD, BCPS Verbal consent to manage patient?s drug therapy was obtained from the patient. They were informed they may decline to participate or withdraw from participation in pharmacy services at any time. 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) DM w/o complication type II (250.00) (E11.9) Encounter for screening colonoscopy (V76.51) (Z12.11) Flu-like symptoms (780.99) (R68.89) Gout (274.9) (M10.9) Hematuria, microscopic (599.72) (R31.29) History of breast cancer (V10.3) (Z85.3) Hyperlipidemia (272.4) (E78.5) Hypertension, unspecified type (401.9) (I10) Hypertriglyceridemia (272.1) (E78.1) Low back pain (724.2) (M54.50) Mass of left submandibular region (784.2) (R22.0) Need for vaccination (V05.9) (Z23) INGA (obstructive sleep apnea) (327.23) (G47.33) Osteoporosis (733.00) (M81.0) Persistent cough (786.2) (R05.3) Plantar fasciitis (728.71) (M72.2) Proteinuria (791.0) (R80.9) Right foot pain (729.5) (M79.671) Right hip pain (719.45) (M25.551) (more content not included)... Normal [facility] Pharm D Noteon 01-07-2022 Pharm D Note Reason For Visit A telephone visit (audio only) between the patient (at the originating site) and the provider (at the distant site) was utilized to provide this telehealth service. Pharmacist Clinic: Diabetes Management Follow up 01/07/2022 I had the pleasure of speaking with . ROLANDO PETERS for her DM follow-up. Referring Provider: Celia Al DO __ HISTORY OF PRESENT ILLNESS Patient referred to clinical pharmacy for assistance with diabetes medication management. A1c historically well controlled, most recently 7.3% on 10/29/21 which was an increase from previous A1c of 6.9% on 10/18/20. Following initial referral to pharmacy patient was transitioned off Januvia + glipizide onto Jentadueto (Tradjenta / metformin) d/t insurance coverage and for simplification of therapy as well as cost benefit. Patient started therapy with Jentadueto 09/30/21 and has tolerated therapy well. She has increased her Jentadueto from 2.5 mg/1000mg daily to 5 mg/1000mg daily. Sugars did increase slightly following therapy transition and patient believes her prior therapy of Januvia+Glimepiride was slightly more efficacious than current therapy. __ PHARMACY ASSESSMENT Allergies Reviewed? yes Home Pharmacy Reviewed? yes, patient declines pharmacy for future fills, would like to fill with local independent on file No issues reported in regards to accessibility, affordability, adherence, adverse effects, or organization MEDICATION RECONCILIATION - no changes RELEVANT LAB RESULTS Renal Function 10/29/21: SCr 0.96 mg/dL eGFR 61 ml/min/1.732 Liver Function 10/29/21: AST 21 U/L ALT 19 U/L Lipid Panel 10/29/21: TC 130 mg/dL HDL 39 mg/dL LDL 50 mg/dL TG 199 mg/dL A1c 10/29/21: 7.3% - 10/18/20: 6.9% - 10/25/19: 7.4% - 10/20/18: 6.8% Vitamin D 10/29/21: 46 ng/mL Urine albumin/creatinine ratio 11/01/21: greater than 300 (abnormal) DRUG INTERACTIONS - No significant drug-drug interactions exist that require change in therapy __ DIABETES ASSESSMENT CURRENT PHARMACOTHERAPY - Jentadueto (Tradjenta / metformin) 5 / 1000 mg XR take 1 tablet by mouth once daily (start 11/06/21) SECONDARY PREVENTION - Statin? Yes; rosuvastatin 10 mg take 1 tablet by mouth daily - OKSANA-I/ARB? Yes; losartan 100 mg take 1 tablet by mouth daily - Aspirin? Yes; aspirin 81 mg take 1 tablet by mouth daily SMBG MEASUREMENTS - detailed log not available during call - trending still 150 - 160s fasting ASSESSMENT OF SMBG MEASUREMENTS - Highest reading: N/A - Lowest reading: N/A - Average: N/A Has the patient experienced any low sugars since last contact? No - Denies symptoms of low blood glucose: sweaty, shaky, anxious, excessive hunger, confusion, lightheaded, nauseous, blurred vision; pt reports she has been symptomatic w/ lows historically Has the patient experienced any high sugars since last contact? No - Denies symptoms of high blood glucose: excessive thirst, frequent urination, fatigue, nausea, shortness of breath, trouble concentrating __ PATIENT EDUCATION/GOALS - Fasting B - 130 mg/dL - Postprandial BG: less than 180 mg/dL - A1c: less than 7% - Encouraged patient to monitor blood sugar daily and maintain log of readings __ RECOMMENDATIONS/PLAN 1. INCREASE Jentadueto from 5 / 1000 mg daily to 2.5 / 1000 mg XR take 2 tablets by mouth once daily. 2. Medications are dosed appropriately for current renal and hepatic function, continue to monitor. Clinical Pharmacist follow-up: 01/20/22 - 01/24/22 Type of Encounter: Virtual Thank you, Matteo Lopez, PharmD, BCPS Verbal consent to manage patient?s drug therapy was obtained from the patient. They were informed they may decline to participate or withdraw from participation in pharmacy services at any time. 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) DM w/o complication type II (250.00) (E11.9) Encounter for screening colonoscopy (V76.51) (Z12.11) Flu-like symptoms (780.99) (R68.89) Gout (274.9) (M10.9) Hematuria, microscopic (599.72) (R31.29) History of breast cancer (V10.3) (Z85.3) Hyperlipidemia (272.4) (E78.5) Hypertension, unspecified type (401.9) (I10) Hypertriglyceridemia (272.1) (E78.1) Low back pain (724.2) (M54.50) Mass of left submandibular region (784.2) (R22.0) Need for vaccination (V05.9) (Z23) INGA (obstructive sleep apnea) (327.23) (G47.33) Osteoporosis (733.00) (M81.0) Persistent cough (786.2) (R05.3) Plantar fasciitis (728.71) (M72.2) Proteinuria (791.0) (R80.9) Right foot pain (729. (more content not included)... Normal [facility] US Retroperitoneal Limitedon 12-25-2021 US Retroperitoneal Limited Patient Name: ROLANDO PETERS Ultrasound ACCESSION EXAM DATE/TIME PROCEDURE ORDERING PROVIDER [id number] 12/25/2021 11:26 EDT US Retroperitoneal MD MIKI, PRETI Limited NURIS CPT code 95640 Reason For Exam (US Retroperitoneal Limited) Chronic kidney disease stage 2 Report Exam type: Ultrasound retroperitoneum. EXAM DATE AND TIME: 12/25/2021 11:26 AM EDT INDICATION: 76 years Female with chronic kidney disease COMPARISON: None Technique: Grayscale sonographic images were obtained of the kidneys and bladder. Color Doppler was utilized. FINDINGS: RIGHT KIDNEY: Size: 11.3 cm in craniocaudal dimension Echogenicity: Normal Parenchymal thickness: Normal Contour: Smooth Pelvicalyceal dilatation: None Calculus: none Mass: none Cyst: none LEFT KIDNEY: Size: 11.8 cm in craniocaudal dimension Echogenicity: Normal Parenchymal thickness: Normal Contour: Smooth Pelvicalyceal dilatation: None Calculus: none Mass: none Cyst: none Bladder: Normal. IMPRESSION: Normal complete ultrasound of retroperitoneum. Ultrasound Report Report Dictated on Final Dictated: 12/26/2021 9:24 pm Dictating Physician: MD MENDOZA NICHOLAS Signed Date and Time: 12/26/2021 9:25 pm Signed by: MD MENDOZA NICHOLAS Transcribed Date and Time: 12/26/2021 9:24 Normal [facility] Office Visit ([facility])on 11-29-2021 Follow-up visit Diagnoses/Problems Persistent cough (786.2) (R05.3) Acute bronchitis, unspecified organism (466.0) (J20.9) Orders Acute bronchitis, unspecified organism Start: Albuterol Sulfate HFA 108 (90 Base) MCG/ACT Inhalation Aerosol Solution; INHALE 2 PUFFS EVERY 4-6 HOURS NEEDED Start: Amoxicillin-Pot Clavulanate 875-125 MG Oral Tablet; TAKE 1 TABLET EVERY 12 HOURS DAILY Start: methylPREDNISolone 4 MG Oral Tablet Therapy Pack; Take as Directed per Packet Instruction Patient Discussion/Summary Augmentin 875 mg bid for 10 days Albuterol 2 puffs every 4 hours for 24-48 hours then as needed Medrol dose kay as directed Call if no improvement in 3-5 days or sooner if worse. What is acute bronchitis?; Acute bronchitis is an infection of the bronchial (say: love) tree. The bronchial tree is made up of the tubes that carry air into your lungs. When these tubes get infected, they swell and mucus (thick fluid) forms inside them. This makes it hard for you to breathe.; Acute bronchitis is bronchitis that lasts a short time (several weeks or less), while chronic bronchitis is bronchitis that is long-lasting or recurring (and is usually caused by constant irritation of the bronchial tree, such as from smoking).; What are the symptoms of acute bronchitis?; The symptoms of acute bronchitis can include:; Sore throat ; Fever ; A cough that may bring up clear, yellow or green mucus ; Chest congestion ; Shortness of breath ; Wheezing ; Chills ; Body aches; ; You should call your doctor if:; You continue to wheeze and cough for more than 2 weeks, especially at night when you lie down or when you are active. ; You continue to cough for more than 2 weeks and sometimes have a bad-tasting fluid come up into your mouth. This may mean you have gastro esophageal reflux disease (GERD), which is a condition in which stomach acid gets into your esophagus (windpipe). ; You have a cough that produces blood, you feel very sick and weak, you have a high fever that doesn?t go down and you are short of breath. You may have pneumonia.; How long will the cough from acute bronchitis last?; Sometimes the cough from acute bronchitis lasts for several weeks or months. Usually this happens because the bronchial tree is taking a long time to heal. However, a cough that doesn?t go away may be a sign of another problem, such as asthma or pneumonia.; What causes acute bronchitis?; Acute bronchitis is almost always caused by viruses that attack the lining of the bronchial tree and cause infection. As your body fights back against these viruses, more swelling occurs and more mucus is produced. It takes time for your body to kill the viruses and heal the damage to your bronchial tubes. In most cases, the same viruses that cause colds cause acute bronchitis. Research has shown that bacterial infection is a much less common cause of bronchitis than doctors used to think. Very rarely, an infection caused by a fungus can cause acute bronchitis. Exposure to an irritant (such as smoke, dust or pollutants in the air) may cause bronchitis.; How do people get acute bronchitis?; The viruses that cause acute bronchitis are sprayed into the air or onto people?s hands when they cough. You can get acute bronchitis if you breathe in these viruses. You can also get it if you touch a hand that has the virus on it and then touch your eyes, nose or mouth.; If you smoke or are around damaging fumes (such as those in certain kinds of factories), you are more likely to get acute bronchitis and to have it longer. This is because your bronchial tree is already damaged. ; People who have gastro esophageal reflux disease (GERD) can develop acute bronchitis when stomach acids get into the bronchial tree.; How is acute bronchitis treated?; Most cases of acute bronchitis will go away on their own. It's a good idea to get plenty of rest, drink lots of noncaffeinated fluids (for example, water and fruit juices) and increase the humidity in your environment. Iixa-rkn-smictfg pain relievers can reduce inflammation, ease pain and lower fever. Nonsteroidal anti-inflammatory medicines (such as ibuprofen, naproxen and aspirin) help with pain and inflammation. Acetaminophen helps with pain and reducing fever.; It is okay to take an zegm-err-pdbxioo cough suppressant if your cough is dry (not producing any mucus). It's best not to suppress a cough that brings up mucus because this type of cough helps clear the mucus from your bronchial tree faster. Cough medicine is not recommended for children, especially those younger than 4 years of age. Because acute bronchitis is usually caused by viruses, antibiotics do not help. Even if you cough up mucus that is colored or thick, antibiotics probably won?t help you get better any faster. However, if your doctor thinks your bronchitis is caused by a bacteria, he or she may prescribe antibiotics.; If you smoke, you should quit. This will help your bronchial (more content not included)... Normal [facility] Laboratory - Chemistry and C hemistry - challengeon 11-07-2021 Creatinine (U) [Mass or moles/Vol] 75.0 mg/dL See Below [facility] Work Phone: Comment on above: Reference Range: 20. 0 - 320.0 Protein (24H U) [Mass/Vol] 665 {mg/24h} above high threshold 0 - 149 [facility] Work Phone: Laboratory - Urinalysison Protein (U) [Mass/Vol] 52 mg/dL See Below [facility] Work Phone: Comment on above: Reference Range: Not Established No Panel Informationon 11-07 1279 mL [facility] Work Phone: 24 {hr} [facility] Work Phone: 0.96 {g/24h} See Below [facility] Work Phone: Comment on above: Reference Range: 0.6 7 - 1.59 Pharm D Noteon 11-06-2021 Pharm D Note Diagnosis/Problems Assessed DM w/o complication type II (250.00) (E11.9) Reason For Visit A telephone visit (audio only) between the patient (at the originating site) and the provider (at the distant site) was utilized to provide this telehealth service. Pharmacy Consult Diabetes Management Follow up History of Present Illness Primary Care Pharmacy Clinical Interventions: Medication education provided: Additional monitoring: smbgs Medication dose adjustment(s): Jentadueto dose increase Interaction(s): Drug-Drug: assessed Medication adherence: assessed Time Spent on Encounter: 21 - 30 Minutes Allergies Medication Lymphazurin SOLN Recorded By: Kelle Mcdaniel; 10/13/2013 1:08:54 PM Sulfa Drugs Recorded By: Nalini Brock; 07/28/2013 1:10:04 PM Current Meds Medication NameInstructionReason Citalopram Hydrobromide 20 MG Oral TabletTake 1 tablet dailyAnxiety Jentadueto XR 2.5-1000 MG Oral Tablet Extended Release 24 HourTAKE 1 TABLET BY MOUTH ONCE DAILY (start after finish supply of Januvia and glipizide)DM w/o complication type II Colchicine 0.6 MG Oral Tablet (Colcrys)TAKE 2 TABLETS BY MOUTH A SINGLE DOSE, THEN 1 TABLET BY MOUTH 1 HOUR LATER, THEN TAKE 1 TABLET BY MOUTH EVERY DAY FOR 7 DAYSGout Aspir-Low 81 MG TBECTAKE 1 TABLET DAILY.Health Maintenance Clindamycin Phosphate 1 % External LotionAPPLY SPARINGLY AND MASSAGE IN TWICE DAILY.Health Maintenance Fluocinonide 0.05 % External Solutionapply to affected area(s) dailyHealth Maintenance Lansoprazole 30 MG Oral Capsule Delayed ReleaseTAKE 1 CAPSULE BY MOUTH DAILYHealth Maintenance Metoprolol Tartrate 25 MG Oral TabletTake 1 tablet twice dailyHealth Maintenance Spiriva HandiHaler 18 MCG Inhalation CapsuleINHALE CONTENTS OF 1 CAPSULE ONCE DAILY.Health Maintenance Rosuvastatin Calcium 10 MG Oral TabletTAKE 1 TABLET DAILY.Hyperlipidemia amLODIPine Besylate 10 MG Oral TabletTake 1 tablet dailyHypertension, unspecified type hydroCHLOROthiazide 25 MG Oral TabletTake 1 tablet dailyHypertension, unspecified type Losartan Potassium 100 MG Oral TabletTake 1 tablet dailyHypertension, unspecified type Ezetimibe 10 MG Oral TabletTAKE 1 TABLET DAILY.Hypertriglyceride bhumi Vascepa 1 GM Oral Capsule (Icosapent Ethyl)TAKE 2 CAPSULE Twice dailyHypertriglyceridem ia Vitamin D3 50 MCG (1999) Oral TabletTAKE 2 TABLET DailyVitamin D deficiency Progress Note Pharmacist Clinic: Diabetes Management Follow up 11/06/2021 I had the pleasure of speaking with . ROLANDO PETERS for her DM follow-up. __ HISTORY OF PRESENT ILLNESS Patient referred to clinical pharmacy for assistance with diabetes medication management. A1c historically well controlled, most recently 7.3% on 10/29/21 which was an increase from previous A1c of 6.9% on 10/18/20. Following initial referral to pharmacy patient was transitioned off Januvia + glipizide onto Jentadueto (Tradjenta / metformin) d/t insurance coverage and for simplification of therapy as well as cost benefit. Patient started therapy with Jentadueto 09/30/21 and has tolerated therapy well. Sugars did increase slightly following therapy transition but patient does admit to some dietary choices that also contributed to increase in blood glucose. __ PHARMACY ASSESSMENT Allergies Reviewed? yes Home Pharmacy Reviewed? yes, patient declines pharmacy for future fills, would like to fill with local independent on file No issues reported in regards to accessibility, affordability, adherence, adverse effects, or organization MEDICATION RECONCILIATION - no changes RELEVANT LAB RESULTS Renal Function 10/29/21: SCr 0.96 mg/dL eGFR 61 ml/min/1.732 Liver Function 10/29/21: AST 21 U/L ALT 19 U/L Lipid Panel 10/29/21: TC 130 mg/dL HDL 39 mg/dL LDL 50 mg/dL TG 199 mg/dL A1c 10/29/21: 7.3% - 10/18/20: 6.9% - 10/25/19: 7.4% - 10/20/18: 6.8% Vitamin D 10/29/21: 46 ng/mL Urine albumin/creatinine ratio 11/01/21: greater than 300 (abnormal) DRUG INTERACTIONS - No significant drug-drug interactions exist that require change in therapy __ DIABETES ASSESSMENT CURRENT PHARMACOTHERAPY - Jentadueto (Tradjenta / metformin) 2.5 / 1000 mg XR take 1 tablet by mouth once daily (start 09/30/21) SECONDARY PREVENTION - Statin? Yes; rosuvastatin 10 mg take 1 tablet by mouth daily - OKSANA-I/ARB? Yes; losartan 100 mg take 1 tablet by mouth daily - Aspirin? Yes; aspirin 81 mg take 1 tablet by mouth daily SMBG MEASUREMENTS - detailed log not available during call - reports 169 fasting this morning - trending 140 - 160s fasting ASSESSMENT OF SMBG MEASUREMENTS - Highest reading: N/A - Lowest reading: N/A - Average: N/A Has the patient experienced any low sugars since last contact? No - Denies symptoms of low blood glucose: sweaty, shaky, an (more content not included)... Normal [place] Blood Pressure Cuff Sizeon 0 11-01-2021 Adult depression screening assessment No [facility] Work Phone: Fall risk assessment a) No falls within the last year [facility] Work Phone: Tobacco use status [facility]PHS b) No [facility]: IO Microalbumin, Urine Quant itativeon 11-01-2021 Albumin Ql (U) 150 1 [facility] Work [facility]: Albumin/Creatinine DL <= 20 mg/L (U) [Mass ratio] >300 abnormal [facility] Work Phone: Creatinine (U) [Mass/Vol] 100 mg/dL [facility] Work Phone: Medicare Annual Wellness Vis iton 11-01-2021 Medicare Annual Wellness Visit *Chief Complaint physical exam. History of Present Illness The patient is being seen for the subsequent annual wellness visit. Past Medical, Surgical and Family History: reviewed and updated in chart. Interval History: Patient has not been hospitalized previously. Medications and Supplements: Review of all medications by a prescribing practitioner or clinical pharmacist (such as prescriptions, OTCs, herbal therapies and supplements) documented in the medical record. No, the patient is not using opioids. Patient Self Assessment of Health Status: good. Tobacco use: Non-User Alcohol use: User bottle of wine/day. Illicit drug use: Non-User Current diet: well balanced diet, Diabetic Diet, does consume adequate fluids and does consume caffeine. Exercise Frequency: the patient does not exercise. Depression/Suicide Screening: Patient has a current diagnosis of depression . During the past 2 weeks, the patient has not felt down, depressed or hopeless. During the past 2 weeks, the patient has not felt little interest or pleasure in doing things. Hearing Impairment: Patient has slight hearing impairment, on the right. Cognitive Impairment: No cognitive impairment observed. Bathing: performs independently. Dressing: performs independently. Walking: performs independently. Toileting: performs independently. Feeding: performs independently. Personal Hygiene: performs independently. Bowels: continent. Bladder: occasional accident. Managing Finances: needs assistance. Shopping: performs independently. Managing Medications: performs independently. Housework / Basic Home Maintenance: performs independently. Handling Transportation: performs independently. Preparing Meals: performs independently. Using the Telephone/ Communication Devices: performs independently. Falls Risk Screening:. ROLANDO has not fallen in the last 6 months. Her fall did not result in injury. Home safety risk factors: none. Advance directives:. Patient has no living will. Patient has no healthcare POA. Patient presents for physical exam. 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 Gavin due 2021 Patient denies other complaints. There are spiritual/cultural practices/values/needs that are important to know: fuse coiler come in to see her before she dies, recieve [facility] Fall Risk Screening: ROLANDO has not fallen in the last 6 months. Her fall did not result in injury. ROLANDO does not have a fear of falling. She does not need assistance with sitting, standing or walking. Does not need assistance walking in her home. She does not need assistance in an unfamiliar setting. Advance directives: Living Will: No living will on file. Healthcare POA: No healthcare proxy on file. Declaration of Mental Health Treatment: No mental health treatment on file. Domestic Violence Screen: Does not feel threatened or abused physically, emotionally or sexually. Do you feel UNSAFE? The patient feels safe in the home. Depression/Suicide Screening: During the past 2 weeks, the patient has not felt down, depressed or hopeless. During the past 2 weeks, the patient has not felt little interest or pleasure in doing things. She has no thoughts of harming self. She has not had thoughts of harming others. Single alcohol screening question: In the past year the patient has had 5 or more drinks (men) or 4 or more drinks (women)? 0 time(s). Single substance abuse screening question: In the past year the patient has used a recreational drug or used a prescription drug for non-medical reasons? 0 time(s). Procedure or Sedation Areas: patient has not had alcohol, recreational drugs, or prescription drugs for non-medical reasons this morning. Nutrition Screening: In the past month, there was not a day when I or anyone in my family went hungry because there was not enough food. Patient Education: The patient denies that they or the person with them has problems with hearing, speaking, seeing, moving around or learning The patient is not comfortable filling out medical forms. Review of Systems Constitutional: no chills, not feeling tired, no fever and no night sweats. Eyes: dryness of the eyes, but no blurred vision, no eyesight problems and no eye pain. ENT: nasal congestion and postnasal drip, but no hearing loss, no nasal discharge, no hoarseness and no sore throat. Cardiovascular: no chest pain, no intermittent leg claudication, no lower extremity edema, no palpitations and no syncope. Respiratory: shortness of breath during exertion, but no cough, no shortness of breath at rest and no wheezing. Gastrointestinal: no abdominal pain, no blood in stools, no constipation, no diarrhea, no melena, no nausea, no rectal pain and no vom (more content not included)... Normal [facility] Complete Blood Count + Diffe rentialon 10-29-2021 Basophils/100 WBC (Bld) 1.5 % 0.0 - 2.0 [facility] Work Phone: Erythrocyte distribution width (RBC) [Ratio] 12.0 % See Below [facility] Work Phone: Comment on above: Reference Range: 11. 5 - 14.5 Hematocrit (Bld) [Volume fraction] 40.7 % See Below [facility] Work Phone: Comment on above: Reference Range: 36. 0 - 46.0 Hemoglobin (Bld) [Mass/Vol] 13.3 g/dL See Below [facility] Work Phone: Comment on above: Reference Range: 12. 0 - 16.0 Lymphocytes/100 WBC (Bld) 16.2 % See Below [facility] Work Phone: Comment on above: Reference Range: 13. 0 - 44.0 MCHC (RBC) [Mass/Vol] 32.7 g/dL See Below [facility] Work Phone: Comment on above: Reference Range: 32. 0 - 36.0 MCV (RBC) [Entitic vol] 94 fL 80 - 100 [facility] Work Phone: Monocytes/100 WBC (Bld) 8.7 % 2.0 - 10.0 [facility] Work Phone: Neutrophils/100 WBC (Bld) 68.8 % See Below [facility] Work Phone: Comment on above: Reference Range: 40. 0 - 80.0 Platelets (Bld) [#/Vol] 261 10*3/uL 150 - 450 [facility] Work Phone: RBC (Bld) [#/Vol] 4.33 {x10E12/L} See Below [facility] Work Phone: Comment on above: Reference Range: 4.0 0 - 5.20 WBC (Bld) [#/Vol] 5.5 10*3/uL 4.4 - 11.3 [facility] Work Phone: Complete Blood Count + Differential 0.08 {x10E9/L} See Below [facility] Work Phone: Comment on above: Reference Range: 0.0 0 - 0.10 Complete Blood Count + Differential 0.24 {x10E9/L} See Below [facility] Work Phone: Comment on above: Reference Range: 0.0 0 - 0.40 Complete Blood Count + Differential 0.48 {x10E9/L} See Below [facility] Work Phone: Comment on above: Reference Range: 0.0 5 - 0.80 Complete Blood Count + Differential 0.89 {x10E9/L} See Below [facility] Work Phone: Comment on above: Reference Range: 0.8 0 - 3.00 Complete Blood Count + Differential 3.78 {x10E9/L} See Below [facility] Work Phone: Comment on above: Reference Range: 1.6 0 - 5.50 Complete Blood Count + Differential 4.4 % 0.0 - 6.0 [facility] Work Phone: Complete Blood Count + Differential 0.4 % 0.0 - 0.9 [facility] Work Phone: Comment on above: Immature Granulocyte Count (IG) includes promyelocytes, myelocytes and metamyelocytes but does not include bands. Percent differential counts (%) should be interpreted in the context of the absolute cell counts (cells/L). Complete Blood Count + Differential 0.0 {/100_WBC} 0.0-0.0 [facility] Work Phone: Hemoglobin A1Con 10-29-2021 Glucose [Mass/Vol] 163 mg/dL [facility] [place]: HbA1c (Bld) [Mass fraction] 7.3 % Abnormal [facility] Work Phone: Comment on above: Diagnosis of Diabete s-Adults Non-Diabetic: < or = 5.6% Increased risk for developing diabetes: 5.7-6.4% Diagnostic of diabetes: > or = 6.5%. Monitoring of Diabetes Age (y) Therapeutic Goal (%) Adults: >18 <7.0 Pediatrics: 13-18 <7.5 7-12 <8.0 0- 6 7.5-8.5 [employer]. Diabetes Care 33(S1), Aug 2009. Laboratory - Chemistry and C hemistry - challengeon 10-29-2021 Albumin BCP dye [Mass/Vol] 4.3 g/dL 3.4 - 5.0 [facility] Work Phone: ALP [Catalytic activity/Vol] 64 U/L 33 - 136 [facility] Work Phone: ALT With P-5'-P [Catalytic activity/Vol] 19 U/L 7 - 45 [facility] Work Phone: Comment on above: Patients treated wit h Sulfasalazine may generate falsely decreased results for ALT. Anion gap [Moles/Vol] 14 mmol/L 10 - 20 [facility] Work Phone: AST With P-5'-P [Catalytic activity/Vol] 21 U/L 9 - 39 [facility] Work Phone: Bilirubin [Mass/Vol] 0.6 mg/dL 0.0 - 1.2 [facility] Work Phone: Calcium [Mass/Vol] 9.9 mg/dL 8.6 - 10.6 [facility] [place] Phone: Chloride [Moles/Vol] 102 mmol/L 98 - 107 [facility] Work Phone: CO2 [Moles/Vol] 28 mmol/L 21 - 32 [facility] Work Phone: Creatinine [Mass/Vol] 0.96 mg/dL See Below [facility] Work Phone: Comment on above: Reference Range: 0.5 0 - 1.05 Glucose [Mass/Vol] 171 mg/dL above high threshold 74 - 99 [facility] Work Phone: Potassium [Moles/Vol] 4.7 mmol/L 3.5 - 5.3 [facility] Work Phone: Protein [Mass/Vol] 7.1 g/dL 6.4 - 8.2 [facility] Work Phone: Sodium [Moles/Vol] 139 mmol/L 136 - 145 [facility] Work Phone: TSH Qn 1.07 m[IU]/L See Below [facility] Work Phone: Comment on above: Reference Range: 0.4 4 - 3.98 TSH testing is performed using different testing methodology at [facility] than at other [facility]. Direct result comparisons should only be made within the same method. Urea nitrogen [Mass/Vol] 21 mg/dL 6 - 23 [facility] Work Phone: Lipid Panelon 10-29-2021 Cholesterol [Mass/Vol] 130 mg/dL 0 - 199 [facility] Work Phone: Comment on above: . AGE DESIRABLE BORD LILIAM HIGH HIGH 0-19 Y 0 - 169 170 - 199 >/= 200 20-24 Y 0 - 189 190 - 224 >/= 225 >24 Y 0 - 199 200 - 239 >/= 240 All ranges are based on fasting samples. Specific therapeutic targets will vary based on patient-specific cardiac risk.. Pediatric guidelines reference:Pediatrics 2011, 128(S5). Adult guidelines reference: NCEP ATPIII Guidelines, SARAH 2001, 258:2486-97. Venipuncture immediately after or during the administration of Metamizole may lead to falsely low results. Testing should be performed immediately prior to Metamizole dosing. Cholesterol in HDL [Mass/Vol] 39.8 mg/dL Abnormal [facility] Work Phone: Comment on above: . AGE VERY LOW LOW N ORMAL HIGH 0-19 Y < 35 < 40 40-45 ---- 20-24 Y ---- < 40 >45 ---- >24 Y ---- < 40 40-60 >60. Cholesterol in LDL [Mass/Vol] 50 mg/dL 0 - 99 [facility] Work Phone: Comment on above: . NEAR BORD AGE CAROLYNN RABLE OPTIMAL HIGH HIGH VERY HIGH 0-19 Y 0 - 109 --- 110-129 >/= 130 ---- 20-24 Y 0 - 119 --- 120-159 >/= 160 ---- >24 Y 0 - 99 100-129 130-159 160-189 >/=190. Cholesterol.total/Lulu sterol in HDL [Mass ratio] 3.3 {ratio} [facility] Work Phone: Comment on above: REF VALUESDESIRABLE < 3.4HIGH RISK > 5.0 Triglyceride [Mass/Vol] 199 mg/dL above hi gh threshold 0 - 149 [facility] Work Phone: Comment on above: . AGE DESIRABLE BORD LILIAM HIGH HIGH VERY HIGH 0 D-90 D 19 - 174 ---- ---- ----91 D- 9 Y 0 - 74 75 - 99 >/= 100 ---- 10-19 Y 0 - 89 90 - 129 >/= 130 ---- 20-24 Y 0 - 114 115 - 149 >/= 150 ---- >24 Y 0 - 149 150 - 199 200- 499 >/= 500. Venipuncture immediately after or during the administration of Metamizole may lead to falsely low results. Testing should be performed immediately prior to Metamizole dosing. Lipid Panel 40 mg/dL 0 - 40 [facility] Work Phone: No Panel Informationon 10-29 61 {mL/min/1.73m2} >90 [facility] Work Phone: Comment on above: CALCULATIONS OF SAKINA MATED GFR ARE PERFORMED USING THE 2020 CKD-EPI STUDY REFIT EQUATION WITHOUT THE RACE VARIABLE FOR THE IDMS-TRACEABLE CREATININE METHODS.https://jasn.asnjournals.org/content// ASN.9160723127 Uric Acid, Serumon 2 Urate [Mass/Vol] 7.5 mg/dL above high threshold 2.3 - 6.7 [facility] Work Phone: Comment on above: Venipuncture immedia tely after or during the administration of Metamizole may lead to falsely low results. Testing should be performed immediately prior to Metamizole dosing. Vitamin D 25-Hydroxyon 10-29 25-hydroxyvitamin D3 [Mass/Vol] 46 ng/mL [facility] Work Phone: Comment on above: .DEFICIENCY: < 20 NG /MLINSUFFICIENCY: 20-29 NG/MLSUFFICIENCY: 30-100 NG/MLTHIS ASSAY ACCURATELY QUANTIFIES THE SUM OFVITAMIN D3, 25-HYDROXY AND VIT D2,25-HYDROXY. 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 Pharmacy Consult Diabetes Management Follow up History of Present Illness Primary Care Pharmacy Clinical Interventions: Medication education provided: Additional monitoring: smbgs New medication(s) initiated: marisa Medication adherence: assessed Time Spent on Encounter: 21 - 30 Minutes Allergies Medication Lymphazurin SOLN Recorded By: Kelle Mcdaniel; 10/13/2013 1:08:54 PM [facility] Drugs Recorded By: Nalini Brock; 07/28/2013 1:10:04 PM Current Meds Medication NameInstructionReason Citalopram Hydrobromide 20 MG Oral TabletTake 1 tablet dailyAnxiety Jentadueto XR 2.5-1000 MG Oral Tablet Extended Release 24 HourTAKE 1 TABLET BY MOUTH ONCE DAILY (start after finish supply of Januvia and glipizide)DM w/o complication type II Colchicine 0.6 MG Oral Tablet (Colcrys)TAKE 2 TABLETS BY MOUTH A SINGLE DOSE, THEN 1 TABLET BY MOUTH 1 HOUR LATER, THEN TAKE 1 TABLET BY MOUTH EVERY DAY FOR 7 DAYSGout Aspir-Low 81 MG TBECTAKE 1 TABLET DAILY.Health Maintenance Clindamycin Phosphate 1 % External LotionAPPLY SPARINGLY AND MASSAGE IN TWICE DAILY.Health Maintenance Fluocinonide 0.05 % External Solutionapply to affected area(s) dailyHealth Maintenance Lansoprazole 30 MG Oral Capsule Delayed ReleaseTAKE 1 CAPSULE BY MOUTH DAILYHealth Maintenance Losartan Potassium-HCTZ 100-25 MG Oral TabletTAKE 1 TABLET BY MOUTH DAILYHealth Maintenance Metoprolol Tartrate 25 MG Oral TabletTake 1 tablet twice dailyHealth Maintenance Spiriva HandiHaler 18 MCG Inhalation CapsuleINHALE CONTENTS OF 1 CAPSULE ONCE DAILY.Health Maintenance Rosuvastatin Calcium 10 MG Oral TabletTAKE 1 TABLET DAILY.Hyperlipidemia amLODIPine Besylate 10 MG Oral TabletTake 1 tablet dailyHypertension, unspecified type Ezetimibe 10 MG Oral TabletTAKE 1 TABLET DAILY.Hypertriglyceride bhumi Vascepa 1 GM Oral Capsule (Icosapent Ethyl)TAKE 2 CAPSULE Twice dailyHypertriglyceridem ia Vitamin D3 50 MCG (1999) Oral TabletTAKE 2 TABLET DailyVitamin D deficiency Progress Note Pharmacist Clinic: Diabetes Management Follow up 10/03/2021 I had the pleasure of speaking with . ROLANDO PETERS for her DM follow-up. __ HISTORY OF PRESENT ILLNESS Patient referred to clinical pharmacy for assistance with diabetes medication management. A1c historically well controlled, most recently 6.9% on 10/18/20. Patients insurance plan does not cover Januvia for the new year so patient was transitioned off Januvia + glipizide onto Jentadueto (Tradjenta / metformin). Patient started therapy with Jentadueto 09/30/21 and reports she has been tolerating well thus far. She checked FBG this morning and was 146 mg/dL. She was not routinely monitoring BG prior to the transition as instructed so difficult to assess overall management with alteration to therapy. __ PHARMACY ASSESSMENT Allergies Reviewed? yes Home Pharmacy Reviewed? yes, patient filled Jentadueto with pharmacy (90 day) No issues reported in regards to accessibility, affordability, adherence, adverse effects, or organization MEDICATION RECONCILIATION - no changes RELEVANT LAB RESULTS Renal Function 10/18/20: SCr 1.04 mg/dL eGFR 52 ml/min/1.732 - 10/25/19: SCr 0.96 mg/dL eGFR 57 ml/min/1.732 Liver Function 10/18/20: AST 23 U/L ALT 14 U/L Lipid Panel 10/18/20: TC 139 mg/dL HDL 40 mg/dL LDL 67 mg/dL TG 158 mg/dL A1c 10/18/20: 6.9% - 10/25/19: 7.4% - 10/20/18: 6.8% - 10/09/17: 7.1% Vitamin D 10/18/20: 44 ng/mL DRUG INTERACTIONS - No significant drug-drug interactions exist that require change in therapy __ DIABETES ASSESSMENT CURRENT PHARMACOTHERAPY - Jentadueto (Tradjenta / metformin) 2.5 / 1000 mg XR take 1 tablet by mouth once daily (start 09/30/21) SECONDARY PREVENTION - Statin? Yes; rosuvastatin 10 mg take 1 tablet by mouth daily - OKSANA-I/ARB? Yes; losartan 100 mg take 1 tablet by mouth daily - Aspirin? Yes; aspirin 81 mg take 1 tablet by mouth daily SMBG MEASUREMENTS 146 fasting this morning - no other readings available ASSESSMENT OF SMBG MEASUREMENTS - Highest reading: N/A - Lowest reading: N/A - Average: N/A Has the patient experienced any low sugars since last contact? No - Denies symptoms of low blood glucose: sweaty, shaky, anxious, excessive hunger, confusion, lightheaded, nauseous, blurred vision; pt reports she has been symptomatic w/ lows historically Has the patient experienced any high sugars since last contact? No - Denies symptoms of high blood glucose: excessive thirst, frequent urination, fatigue, nausea, shortness of breath, (more content not included)... Normal [employer] JSon 05-20-2021 [facility] Normal [facility] DATE OF SERVICE: 05/20/2021 HISTORY OF PRESENT ILLNESS: This is a 76-year-old female with chief complaint of left middle finger palmar cut. Apparently, she was using scissors to cut the fat off chicken and accidentally cut her left 3rd digit on the palmar side. Since then, it was bleeding, and she cleaned out. It was painful and she just came here to see what is needed to be done. Her pain is 1 out of 10. She has not had a tetanus shot in the past 10 years. PAST MEDICAL HISTORY: History of diabetes, acid reflux, cholesterol issues. MEDICATIONS: Currently on: 1. Januvia. 2. Losartan. 3. Lansoprazole. 4. Amlodipine. 5. Metoprolol. 6. Ezitamibe. 7. Glimepiride. 8. Citalopram. 9. Lovastatin. [facility] PATIENT NAME: ROLANDO PETERS [address] [facility] [address] Bernal MEDICAL REC #: [id number] [place] [address] [facility] PHYSICIAN 10. Rosuvastatin. 11. Aspirin. 12. Vitamin D3. ALLERGIES: SULFA. REVIEW OF SYSTEMS: Just the left 3rd digit pain. No fever. No chest pain. No other associated symptoms. PHYSICAL EXAMINATION: Blood pressure 182/78, pulse 64, respiratory rate 14, temp 98, pulse oximetry 98% on room air, pain 1 out of 10. Patient looks well, in no distress. Left 3rd digit does have a medial portion 0.3-cm V-shaped laceration. It was cleaned and irrigated by myself topically, hemostasis achieved. Dermabond was used to close this wound edge, sterile bandages administered. Flexion and extension are still preserved. No tendinous damage pre-repair and post-repair. DIAGNOSIS: Left 3rd digit laceration, allowed to healed with glue. PLAN: Augmentin was prescribed to prevent secondary infection due to using scissors that were cut into raw chicken. She understands and agrees with the plan. Should there be more concern, she will follow up as needed. TDAP was administered here. [facility] PATIENT NAME: ROLANDO PETERS Bernadine Bernal MEDICAL REC #: [id number] [place] [address] [facility] PHYSICIAN MD GIRMA Velasquez/[id number] SSI File#: [id number] END OF DOCUMENT / CHANGE LOG FOLLOWS Last Edited By Jada. Signed By Shavon Kerr MD #IBRKH Shavon Kerr MD #IBRKH on 05/27/2021 08:31 ET on 05/27/2021 08:31 ET Revision Number - 2 Verified/Reviewed by 05/27/21 0831 ANA [facility] PATIENT NAME: ROLANDO PETERS Bernadine Bernal MEDICAL REC #: [id number] [place] [address] [place] [facility] PHYSICIAN Normal [facility] [place] SAAVEDRA CAROTID BILATERALOrde red By: Rashi Jerome on 04-29-2021 [facility] [place] [facility] -- Carotid Duplex Report Patient Lorraine, : 1945 Study 04/29/2021 Name: Rolando (76yrs) Date: Age: 76 Account: [id number] Gender: F Loc: BP: Ordering Physician: Rashi Jerome MD Medical Physics Teacher: Doc Baez RDMS, RVT Interpreting Physician: Ryan Reyes MD -- Location: [facility] -- Indications: Carotid stenosis. -- Conclusions 1. Moderate carotid disease present with less than 50% stenosis involving the right internal carotid artery. 2. Moderate carotid disease present with 60-69% stenosis involving the left internal carotid artery. 3. Normal antegrade flow involving the right vertebral artery. 4. Normal antegrade flow involving the left vertebral artery. -- History: Risk factors: Hypertension. Diabetes mellitus. Hyperlipidemia. Age over 65 years. -- Study data: Complete carotid duplex study. Grayscale 2D imaging, color Doppler imaging, and spectral Doppler analysis. Location: Vascular laboratory. Procedure: A vascular evaluation was performed with the patient in the supine position. Images were obtained using a [employer] E9 vascular ultrasound machine. -- Findings Carotid/vertebral arteries: Right common carotid: The distal vessel has minimal and smooth plaque. Right internal carotid: The proximal vessel has minimal and smooth plaque. Right external carotid: The proximal vessel has minimal and smooth plaque. Right vertebral: The arterial flow direction is antegrade. Left vertebral: The arterial flow direction is antegrade. Left common carotid: The distal vessel has extensive and calcified plaque. Left internal carotid: The proximal vessel has moderate and calcified plaque. Left external carotid: The proximal vessel has moderate and calcified plaque. -- Arterial flow: + +------- ----+ + +Location +PSV(cm/sec)+EDV(cm/sec )+ + +------- ----+ + +R CCA , prox +114 +12 + + +------- ----+ + +R CCA , mid +111 +9 + + +------- ----+ + +R CCA , distal+98 +14 + + +------- ----+ + +R ICA , prox +103 +11 + + +------- ----+ + +R ICA , mid +133 +19 + + +------- ----+ + +R ICA , distal+88 +15 + + +------- ----+ + +R ECA +106 +0 + + +------- ----+ + +R vertebral +41 +9 + + +------- ----+ + +R subclavian +195 +0 + + +------- ----+ + +L CCA , prox +111 +11 + + +------- ----+ + +L CCA , mid +104 +16 + + +------- ----+ + +L CCA , distal+102 +9 + + +------- ----+ + +L ICA , prox +229 +29 + + +------- ----+ + +L ICA , mid +63 +13 + + +------- ----+ + +L ICA , distal+50 +12 + + +------- ----+ + +L ECA +184 +16 + + +------- ----+ + +L vertebral +31 +6 + + +------- ----+ + +L subclavian +178 +0 + + +------- ----+ + Velocity ratios: + -+-----+-----+ + +R PSV+L PSV+ + -+-----+-----+ +Max ICA / Mid CCA Ratio+1.2 +2.2 + + -+-----+-----+ Prepared and electronically signed by Ryan Reyes MD 04/29/2021 16:01 [facility] Work Phone: [place], [facility] Incoming Cardiology Results From [facility] - 04/29/2021 4:02 PM EDT [facility] -- Carotid Duplex Report Patient Lorraine, : 1945 Study 04/29/2021 Name: Rolando (76yrs) Date: Age: 76 Account: [id number] Gender: F Loc: BP: Ordering Physician: Rashi Jerome MD Medical Physics Teacher: Doc Baez RDMS, RVT Interpreting Physician: Ryan Reyes MD -- Location: [facility] -- Indications: Carotid stenosis. -- Conclusions 1. Moderate carotid disease present with less than 50% stenosis involving the right internal carotid artery. 2. Moderate carotid disease present with 60-69% stenosis involving the left internal carotid artery. 3. Normal antegrade flow involving the right vertebral artery. 4. Normal antegrade flow involving the left vertebral artery. -- History: Risk factors: Hypertension. Diabetes mellitus. Hyperlipidemia. Age over 65 years. -- Study data: Complete carotid duplex study. Grayscale 2D imaging, color Doppler imaging, and spectral Doppler analysis. Location: Vascular laboratory. Procedure: A vascular evaluation was performed with the patient in the supine position. Images were obtained using a [employer] E9 vascular ultrasound machine. -- Findings Carotid/vertebral arteries: Right common carotid: The distal vessel has minimal and smooth plaque. Right internal carotid: The proximal vessel has minimal and smooth plaque. Right external carotid: The proximal vessel has minimal and smooth plaque. Right vertebral: The arterial flow direction is antegrade. Left vertebral: The arterial flow direction is antegrade. Left common carotid: The distal vessel has extensive and calcified plaque. Left internal carotid: The proximal vessel has moderate and calcified plaque. Left external carotid: The proximal vessel has moderate and calcified plaque. -- Arterial flow: + +------- ----+ + +Location +PSV(cm/sec)+EDV(cm/sec )+ + +------- ----+ + +R CCA , prox +114 +12 + + +------- ----+ + +R CCA , mid +111 +9 + + +------- ----+ + +R CCA , distal+98 +14 + + +------- ----+ + +R ICA , prox +103 +11 + + +------- ----+ + +R ICA , mid +133 +19 + + +------- ----+ + +R ICA , distal+88 +15 + + +------- ----+ + +R ECA +106 +0 + + +------- ----+ + +R vertebral +41 +9 + + +------- ----+ + +R subclavian +195 +0 + + +------- ----+ + +L CCA , prox +111 +11 + + +------- ----+ + +L CCA , mid +104 +16 + + +------- ----+ + +L CCA , distal+102 +9 + + +------- ----+ + +L ICA , prox +229 +29 + + +------- ----+ + +L ICA , mid +63 +13 + + +------- ----+ + +L ICA , distal+50 +12 + + +------- ----+ + +L ECA +184 +16 + + +------- ----+ + +L vertebral +31 +6 + + +------- ----+ + +L subclavian +178 +0 + + +------- ----+ + Velocity ratios: + -+-----+-----+ + +R PSV+L PSV+ + -+-----+-----+ +Max ICA / Mid CCA Ratio+1.2 +2.2 + + -+-----+-----+ Prepared and electronically signed by Ryan Reyes MD 04/29/2021 16:01 [facility] Work Phone: [facility] Work Phone: Coronavirus 2019 RNA by PCR, Symptomaticon 10-13-2020 Coronavirus 2019 RNA by PCR, Symptomatic NOT DETECTED Normal See Below [facility] Work Phone: Comment on above: SOURCE: Nasal, Nasop haryngealReference Range: Not Detected.This assay is designed to detect the N, ORF1ab and/or S genes of SARS-CoV-2 via nucleic acid amplification. A Negative (NOT DETECTED) result does not preclude 2019-nCoV infection since the adequacy of sample collection and/or low viral burden may result in presence of viral nucleic acids below the clinical sensitivity of this test method. Negative (NOT DETECTED) result should not be used as the sole basis for treatment or other patient management decisions. Rather negative results should be combined with clinical observations, patient history, and epidemiological information to make patient management decisions.Fact sheet for providers: https://www.fda.gov/media/075254/downloadFact sheet for patients: https://www.fda.gov/media/594566/downloadThis test has received FDA Emergency Use Authorization (EUA) and has been verified by [facility] ([facility]). This test is only authorized for the duration of time that circumstances exist to justify the authorization of the emergency use of in vitro diagnostic tests for the detection of SARS-CoV-2 virus and/or diagnosis of COVID-19 infection under section 564(b)(1) of the Act, 21 U.S.C. 360bbb-3(b)(1), unless the authorization is terminated or revoked sooner. [facility] is certified under CLIA-88 as qualified to perform high complexity testing. Testing is performed in the [facility] laboratories located at [address] [place] [address]. Echo 2D Doppler Coloron 04-17 TRANSTHORACIC ECHOCARDIOGRAM PATIENT: Rolando Peters STUDY DATE: 04/27/2020 : 1945 AGE: 75 HT/WT: 170.2 cm (67 83.5 kg in) (183.6 lb) GENDER: F BP: 172 / 73 LOCATION: [facility] PATIENT Outpatient [facility] STATUS: *ORDERING PHYSICIAN: * Rashi Jerome MD *READING PHYSICIAN: * Salina Watters, *PSYCHIATRIC AIDE INSTRUCTOR: * Brunilda Kerns MD, [facility] RDCS, AE -- INDICATIONS: Newly recognized heart murmur (R01.1). -- CONCLUSIONS SUMMARY: 1. Left ventricle: Systolic function is normal by visual assessment. The estimated ejection fraction is 65%. 2. Right ventricle: Systolic function is normal. 3. No significant valve disease. -- STUDY DATA: Complete transthoracic echocardiogram. Procedure: Image quality was poor. The study was technically limited due to body habitus and respiratory interference. Intravenous imaging enhancement (Definity) was administered. Definity lot #: [id number]. M-mode, complete 2D, complete spectral Doppler, and color flow Doppler images were acquired and archived for permanent storage and are available for subsequent review. Study status: Routine. Patient status: Outpatient. -- FINDINGS LEFT VENTRICLE: The cavity size is normal. Wall thickness is normal. Systolic function is normal by visual assessment. The estimated ejection fraction is 65%. There are no regional wall motion abnormalities. RIGHT VENTRICLE: The cavity size is normal. Systolic function is normal. Right ventricular systolic pressure is within the normal range. VENTRICULAR SEPTUM: There is no evidence of a ventricular septal defect. LEFT ATRIUM: The atrium is normal in size. RIGHT ATRIUM: The atrium is normal in size. ATRIAL SEPTUM: Color Doppler shows no shunt. MITRAL VALVE: Structurally normal valve. Doppler: There is trivial, less than 1+ regurgitation. The peak diastolic gradient is 4 mm Hg. AORTIC VALVE: Not well visualized. Mildly calcified leaflets. Thickening, consistent with sclerosis. Doppler: There is no stenosis. There is trivial, less than 1+ regurgitation. The peak systolic gradient is 10 mm Hg. The peak systolic velocity is 1.6 m/sec. TRICUSPID VALVE: Not well visualized. Structurally normal valve. Doppler: There is trivial, less than 1+ regurgitation. PULMONIC VALVE: Not well visualized. Structurally normal valve. Doppler: There is trivial, less than 1+ regurgitation. AORTA: The aorta is normal. PULMONARY ARTERY: Main pulmonary artery: Normal. PERICARDIUM: Prominent epicardial fat is present. There is no pericardial effusion. SYSTEMIC VEINS: Inferior vena cava: The vessel is normal. The IVC collapses by greater than 50% with inspiration. -- Measurements Value Reference Aortic root ID 2.9 cm <4.1 Value Reference Ascending aorta ID, A-P, S 2.2 cm Ascending aorta ID/bsa, A-P, S 1.1 cm/m^2 Left ventricle Value Reference LV ID, ED (L) 3.5 cm 3.8 - 5.2 LV ID, ES 2.4 cm 2.2 - 3.5 LV ID/bsa, ED (L) 1.8 cm/m^2 2.3 - 3.1 LV ID/bsa, ES (L) 1.2 cm/m^2 1.3 - 2.1 LV PW thickness, ED (H) 1.2 cm 0.6 - 0.9 LV PW/LV ID ratio, ED 0.34 LV wall mass 125 g 66 - 150 LV wall mass/bsa 62 g/m^2 44 - 88 Stroke volume/bsa, 1-p A2C 38 ml/m^2 LV end-diastolic volume, 1-p A4C 90 ml 48 - 140 LV end-systolic volume, 1-p A4C 29 ml 12 - 60 LV end-diastolic volume, 2-p 95 ml 46 - 106 LV end-systolic volume, 2-p 27 ml 14 - 42 LV ejection fraction, 2-p 65 % 54 - 74 LV E/e', lateral 13 LV E/e', medial 14.7 LV E/e', average 13.8 Ventricular septum Value Reference IVS thickness, ED (H) 1.0 cm 0.6 - 0.9 LVOT Value Reference LVOT ID, A-P 1.9 cm LVOT mean velocity, S 0.6 m/sec LVOT peak gradient, S 3 mm Hg Stroke volume (SV), LVOT DP 53 ml Stroke index (SV/bsa), LVOT DP 27 ml/m^2 Aortic valve Value Reference Aortic valve peak velocity, S 1.6 m/sec Aortic peak gradient, S 10 mm Hg Left atrium Value Reference LA volume/bsa, ES, 2-p 20 ml/m^2 16 - 34 Mitral valve Value Reference Mitral E-wave peak velocity 1 m/sec Mitral A-wave peak velocity 0.9 m/sec Mitral deceleration time 331 ms Mitral peak gradient, D 4 mm Hg Mitral E/A ratio, peak 1.1 Tricuspid valve Value Reference Tricuspid regurg peak velocity 2.4 m/sec <=2.8 Tricuspid peak RV-RA gradient 23 mm Hg Right atrium Value Reference RA area, ES, A4C (L) 9 cm^2 10 - 18 Systemic veins Value Reference Estimated RAP 3 mm Hg Right ventricle Value Reference RV ID, minor axis, ED, A4C base 3.1 cm 2.5 - 4.1 RV ID, minor axis, ED, A4C mid 2.0 cm 1.9 - 3.5 TAPSE, 2D 2.5 cm 1.7 - 3.1 RV pressure, S, DP 26 mm Hg RV s', lateral 10.2 cm/sec 6.0 - 13.4 Pulmonic valve Value Reference Pulmonic peak gradient, S 4 mm Hg Legend: (L) and (H) salina values outside specified reference range. Electronically signed by Salina Watters MD, [facility] 04/27/2020 15:23 Prior Signatures: [facility] [place], [facility], [facility] Incoming Cardiology Results From [facility] - 04/27/2020 3:24 PM EDT TRANSTHORACIC ECHOCARDIOGRAM PATIENT: Rolando Peters STUDY DATE: 04/27/2020 : 1945 AGE: 75 HT/WT: 170.2 cm (67 83.5 kg in) (183.6 lb) GENDER: F BP: 172 / 73 LOCATION: [facility] PATIENT Outpatient [facility] STATUS: *ORDERING PHYSICIAN: * Rashi Jerome MD *READING PHYSICIAN: * Salina Watters, *PSYCHIATRIC AIDE INSTRUCTOR: * Brunilda Kerns MD, [facility] RDCS, AE -- INDICATIONS: Newly recognized heart murmur (R01.1). -- CONCLUSIONS SUMMARY: 1. Left ventricle: Systolic function is normal by visual assessment. The estimated ejection fraction is 65%. 2. Right ventricle: Systolic function is normal. 3. No significant valve disease. -- STUDY DATA: Complete transthoracic echocardiogram. Procedure: Image quality was poor. The study was technically limited due to body habitus and respiratory interference. Intravenous imaging enhancement (Definity) was administered. Definity lot #: [id number]. M-mode, complete 2D, complete spectral Doppler, and color flow Doppler images were acquired and archived for permanent storage and are available for subsequent review. Study status: Routine. Patient status: Outpatient. -- FINDINGS LEFT VENTRICLE: The cavity size is normal. Wall thickness is normal. Systolic function is normal by visual assessment. The estimated ejection fraction is 65%. There are no regional wall motion abnormalities. RIGHT VENTRICLE: The cavity size is normal. Systolic function is normal. Right ventricular systolic pressure is within the normal range. VENTRICULAR SEPTUM: There is no evidence of a ventricular septal defect. LEFT ATRIUM: The atrium is normal in size. RIGHT ATRIUM: The atrium is normal in size. ATRIAL SEPTUM: Color Doppler shows no shunt. MITRAL VALVE: Structurally normal valve. Doppler: There is trivial, less than 1+ regurgitation. The peak diastolic gradient is 4 mm Hg. AORTIC VALVE: Not well visualized. Mildly calcified leaflets. Thickening, consistent with sclerosis. Doppler: There is no stenosis. There is trivial, less than 1+ regurgitation. The peak systolic gradient is 10 mm Hg. The peak systolic velocity is 1.6 m/sec. TRICUSPID VALVE: Not well visualized. Structurally normal valve. Doppler: There is trivial, less than 1+ regurgitation. PULMONIC VALVE: Not well visualized. Structurally normal valve. Doppler: There is trivial, less than 1+ regurgitation. AORTA: The aorta is normal. PULMONARY ARTERY: Main pulmonary artery: Normal. PERICARDIUM: Prominent epicardial fat is present. There is no pericardial effusion. SYSTEMIC VEINS: Inferior vena cava: The vessel is normal. The IVC collapses by greater than 50% with inspiration. -- Measurements Value Reference Aortic root ID 2.9 cm <4.1 Value Reference Ascending aorta ID, A-P, S 2.2 cm Ascending aorta ID/bsa, A-P, S 1.1 cm/m^2 Left ventricle Value Reference LV ID, ED (L) 3.5 cm 3.8 - 5.2 LV ID, ES 2.4 cm 2.2 - 3.5 LV ID/bsa, ED (L) 1.8 cm/m^2 2.3 - 3.1 LV ID/bsa, ES (L) 1.2 cm/m^2 1.3 - 2.1 LV PW thickness, ED (H) 1.2 cm 0.6 - 0.9 LV PW/LV ID ratio, ED 0.34 LV wall mass 125 g 66 - 150 LV wall mass/bsa 62 g/m^2 44 - 88 Stroke volume/bsa, 1-p A2C 38 ml/m^2 LV end-diastolic volume, 1-p A4C 90 ml 48 - 140 LV end-systolic volume, 1-p A4C 29 ml 12 - 60 LV end-diastolic volume, 2-p 95 ml 46 - 106 LV end-systolic volume, 2-p 27 ml 14 - 42 LV ejection fraction, 2-p 65 % 54 - 74 LV E/e', lateral 13 LV E/e', medial 14.7 LV E/e', average 13.8 Ventricular septum Value Reference IVS thickness, ED (H) 1.0 cm 0.6 - 0.9 LVOT Value Reference LVOT ID, A-P 1.9 cm LVOT mean velocity, S 0.6 m/sec LVOT peak gradient, S 3 mm Hg Stroke volume (SV), LVOT DP 53 ml Stroke index (SV/bsa), LVOT DP 27 ml/m^2 Aortic valve Value Reference Aortic valve peak velocity, S 1.6 m/sec Aortic peak gradient, S 10 mm Hg Left atrium Value Reference LA volume/bsa, ES, 2-p 20 ml/m^2 16 - 34 Mitral valve Value Reference Mitral E-wave peak velocity 1 m/sec Mitral A-wave peak velocity 0.9 m/sec Mitral deceleration time 331 ms Mitral peak gradient, D 4 mm Hg Mitral E/A ratio, peak 1.1 Tricuspid valve Value Reference Tricuspid regurg peak velocity 2.4 m/sec <=2.8 Tricuspid peak RV-RA gradient 23 mm Hg Right atrium Value Reference RA area, ES, A4C (L) 9 cm^2 10 - 18 Systemic veins Value Reference Estimated RAP 3 mm Hg Right ventricle Value Reference RV ID, minor axis, ED, A4C base 3.1 cm 2.5 - 4.1 RV ID, minor axis, ED, A4C mid 2.0 cm 1.9 - 3.5 TAPSE, 2D 2.5 cm 1.7 - 3.1 RV pressure, S, DP 26 mm Hg RV s', lateral 10.2 cm/sec 6.0 - 13.4 Pulmonic valve Value Reference Pulmonic peak gradient, S 4 mm Hg Legend: (L) and (H) salina values outside specified reference range. Electronically signed by Salina Watters MD, [facility] 04/27/2020 15:23 Prior Signatures: [employer] PhotoShelterWASHINGTON UNIVERSITY MEDICAL CENTERMuleSoft 10-31-2019 XR Foot 3 views Interpreted by: YOEL ZELAYA10/31/19 14:49MRN: [id number] Name: ROLANDO PETERS STUDY:Right FOOT; COMPLETE, MIN 3 VIEWS; 10/31/2019 2:44 pm INDICATION:right foot pain. COMPARISON:None. ORDERING CLINICIAN:CELIA AL FINDINGS:Severe narrowing of the 1st metatarsophalangeal joint is seen withassociated sclerosis, spur formation, subchondral cyst formation andloose bodies. Moderate narrowing of the distal and proximal interphalangeal jointsis noted with associated sclerosis and spur formation. Calcanealspurs identified. There is remote healed fracture the 4th proximalphalanx. No acute fracture or dislocation is seen. IMPRESSION:Degenerative changes, most severely affecting the 1stmetatarsophalangeal joint. Electronically signed by: CLAUDIA ZELAYA 10/31/19 14:49 Normal [facility] Work Phone: Hematologyon 10-25-2019 Hematocrit (Bld) [Volume fraction] 38.9 % See Below [facility] Work Phone: Comment on above: Reference Range: 36. 0 - 46.0 Hemoglobin (Bld) [Mass/Vol] 12.7 g/dL See Below [facility] Work Phone: Comment on above: Reference Range: 12. 0 - 16.0 MCV (RBC) [Entitic vol] 91 fL 80 - 100 M [facility] Work Phone: Platelets (Bld) [#/Vol] 200 {x10E9/L} 150 - 450 [facility] Work Phone: RBC (Bld) [#/Vol] 4.29 {x10E12/L} See Below [facility] Work Phone: Comment on above: Reference Range: 4.0 0 - 5.20 WBC (Bld) [#/Vol] 5.7 {x10E9/L} 4.4 - 11.3 [facility] Work Phone: WBC (Bld) [#/Vol] 0.0 {/100_WBC} 0.0-0.0 [facility] Work Phone: Hemoglobin A1Con 10-25-2019 HbA1c (Bld) [Mass fraction] 166 {MG/DL} [facility] Work Phone: HbA1c (Bld) [Mass fraction] 7.4 % [facility] Work Phone: Comment on above: Diagnosis of Diabete s-Adults Non-Diabetic: < or = 5.6% Increased risk for developing diabetes: 5.7-6.4% Diagnostic of diabetes: > or = 6.5%. Monitoring of Diabetes Age (y) Therapeutic Goal (%) Adults: >18 <7.0 Pediatrics: 13-18 <7.5 7-12 <8.0 0- 6 7.5-8.5 [employer]. Diabetes Care 33(S1), Aug 2009. Lipid Panelon 10-25-2019 Cholesterol [Mass/Vol] 163 mg/dL 0 - 199 [facility] Work Phone: Comment on above: . AGE DESIRABLE BORD LILIAM HIGH HIGH 0-19 Y 0 - 169 170 - 199 >/= 200 20-24 Y 0 - 189 190 - 224 >/= 225 >24 Y 0 - 199 200 - 239 >/= 240 All ranges are based on fasting samples. Specific therapeutic targets will vary based on patient-specific cardiac risk.. Pediatric guidelines reference:Pediatrics 2011, 128(S5). Adult guidelines reference: NCEP ATPIII Guidelines, SARAH 2001, 258:2486-97. Venipuncture immediately after or during the administration of Metamizole may lead to falsely low results. Testing should be performed immediately prior to Metamizole dosing. Cholesterol in HDL [Mass/Vol] 45.3 mg/dL [facility] Work Phone: Comment on above: . AGE VERY LOW LOW N ORMAL HIGH 0-19 Y < 35 < 40 40-45 ---- 20-24 Y ---- < 40 >45 ---- >24 Y ---- < 40 40-60 >60. Cholesterol in LDL [Mass/Vol] 64 mg/dL 0 - 99 [facility] Work Phone: Comment on above: . NEAR BORD AGE CAROLYNN RABLE OPTIMAL HIGH HIGH VERY HIGH 0-19 Y 0 - 109 --- 110-129 >/= 130 ---- 20-24 Y 0 - 119 --- 120-159 >/= 160 ---- >24 Y 0 - 99 100-129 130-159 160-189 >/=190. Cholesterol non HDL [Mass/Vol] 118 mg/dL [facility] Work Phone: Comment on above: AGE DESIRABLE BORDER LINE HIGH HIGH VERY HIGH 0-19 Y 0 - 119 120 - 144 >/= 145 >/= 160 20-24 Y 0 - 149 150 - 189 >/= 190 ---- >24 Y 30 MG/DL ABOVE LDL CHOLESTEROL GOAL. Cholesterol.total/Lulu sterol in HDL [Mass ratio] 3.6 {ratio} [facility] Work Phone: Comment on above: REF VALUESDESIRABLE < 3.4HIGH RISK > 5.0 Triglyceride [Mass/Vol] 270 mg/dL above hi gh threshold 0 - 149 [facility] Work Phone: Comment on above: . AGE DESIRABLE BORD LILIAM HIGH HIGH VERY HIGH 0 D-90 D 19 - 174 ---- ---- ----91 D- 9 Y 0 - 74 75 - 99 >/= 100 ---- 10-19 Y 0 - 89 90 - 129 >/= 130 ---- 20-24 Y 0 - 114 115 - 149 >/= 150 ---- >24 Y 0 - 149 150 - 199 200- 499 >/= 500. Venipuncture immediately after or during the administration of Metamizole may lead to falsely low results. Testing should be performed immediately prior to Metamizole dosing. Lipid Panel 54 mg/dL above high threshold 0 - 40 [facility] Work Phone: Metabolic Panelon 10-25-2019 ALP [Catalytic activity/Vol] 56 U/L 33 - 136 [facility] Work Phone: Anion gap [Moles/Vol] 11 mmol/L 10 - 20 [facility] Work Phone: Bilirubin [Mass/Vol] 0.6 mg/dL 0.0 - 1.2 [facility] Work Phone: Calcium [Mass/Vol] 9.7 mg/dL 8.6 - 10.6 [facility] [place] Phone: Chloride [Moles/Vol] 101 mmol/L 98 - 107 [facility] Work Phone: CO2 [Moles/Vol] 30 mmol/L 21 - 32 [facility] Work Phone: Creatinine [Mass/Vol] 0.96 mg/dL See Below [facility] Work Phone: Comment on above: Reference Range: 0.5 0 - 1.05 Glucose [Mass/Vol] 162 mg/dL above high threshold 74 - 99 [facility] Work Phone: Potassium [Moles/Vol] 4.2 mmol/L 3.5 - 5.3 [facility] Work Phone: Protein [Mass/Vol] 6.7 g/dL 6.4 - 8.2 [facility] Work Phone: Sodium [Moles/Vol] 138 mmol/L 136 - 145 [facility] Work Phone: Urea nitrogen [Mass/Vol] 25 mg/dL above high threshold 6 - 23 [facility] Work Phone: Otheron 10-25-2019 Albumin BCP dye [Mass/Vol] 4.3 g/dL 3.4 - 5.0 [facility] Work Phone: ALT With P-5'-P [Catalytic activity/Vol] 14 U/L 7 - 45 [facility] Work Phone: Comment on above: Patients treated wit h Sulfasalazine may generate falsely decreased results for ALT. AST With P-5'-P [Catalytic activity/Vol] 15 U/L 9 - 39 [facility] Work Phone: Erythrocyte distribution width (RBC) [Ratio] 12.8 % See Below [facility] Work Phone: Comment on above: Reference Range: 11. 5 - 14.5 MCHC (RBC) [Mass/Vol] 32.6 g/dL See Below [facility] Work Phone: Comment on above: Reference Range: 32. 0 - 36.0 57 {mL/min/1.73m2} Abnormal >60 [facility] Work Phone: 69 {mL/min/1.73m2} >60 [facility] Work Phone: Comment on above: CALCULATIONS OF SAKINA MATED GFR ARE PERFORMED USING THE MDRD STUDY EQUATION FOR THE IDMS-TRACEABLE CREATININE METHODS. CLIN CHEM 2007;53:766-72 Thyroidon 10-25-2019 TSH Qn 1.07 {mIU/L} See Below [facility] Work Phone: Comment on above: Reference Range: 0.4 4 - 3.98 Note new pediatric reference range as of 10/18/2019. TSH testing is performed using different testing methodology at [facility] than at other [facility]. Direct result comparisons should only be made within the same method. Vitamin D 25-Hydroxyon 10-24 Calcidiol [Mass/Vol] 45 ng/mL [facility] Work Phone: Comment on above: .DEFICIENCY: < 20 NG /MLINSUFFICIENCY: 20-29 NG/MLSUFFICIENCY: 30-100 NG/MLTHIS ASSAY ACCURATELY QUANTIFIES THE SUM OFVITAMIN D3, 25-HYDROXY AND VIT D2,25-HYDROXY. Clinical Summary: HMSPatient IDon 03-04-2018 OOP Invalid Interpretation Code [facility] Work Phone: Office Visit: Follow-up by johanna mann Rm: 37on 03-04-2018 NEGATED: Highlighted rowDocumentation of current medications (procedure) Done Invalid Interpretation Code [facility] Work Phone: Otheron 09-22-2008 CONVERTED CLINICAL HISTORY OPERATIVE PROCEDURE: Rt carotid endarterectomy with bovine patch angioplasty and EEG monitoring CLINICAL INFORMATION: Rt carotid stenosis [facility] CONVERTED ELECTRONIC SIGNATURE MIREYA VALDIVIA M.D. (Electronic signature on file) Final Signed Out: 09/22/2008 15:50 [facility] CONVERTED FINAL DIAGNOSIS FINAL DIAGNOSIS: CALCIFIED ATHEROSCLEROTIC PLAQUE (RIGHT CAROTID ENDARTERECTOMY). SPECIMEN: PLAQUE [facility] CONVERTED GROSS DESCRIPTION GROSS DESCRIPTION: Rt carotid plaque The specimen is received in a container labeled right carotid plaque. Received is a bifurcating portion of rubbery to partially calcified yellow plaque measuring 2 x 1 x 1 cm. A customer support representative sample is submitted in a single cassette following decal. EAC/SMS/lrs MICROSCOPIC DESCRIPTION: Slides reviewed. EAC/gpl [facility] CONVERTED ORDERING PROVIDER Ordering Provider: MANDY RODRÍGUEZ [facility] Hematologyon 10-21-2001 INR Coag (Bld) [Relative time] A) SKIN, RIGHT YAZDANISM, EXCISIONAL BIOPSY - BIOPSY SITE CHANGES, CHRONIC INFLAMMATION, AND MILD SOLAR ELASTOSIS. NEGATIVE FOR MALIGNANCY. B) SKIN, UPPER FOREHEAD, EXCISIONAL BIOPSY - INTRADERMAL NEVUS. [facility] Otheron 10-21-2001 CONVERTED ELECTRONIC SIGNATURE REGINALD FIERRO M.D., PATHOLOGIST (Electronic signature on file) Final Signed Out: 10/21/2001 11:13 [facility] CONVERTED ORDERING PROVIDER Ordering Provider: FAY CASSIDY [facility] Vital Signs Date Time Vital Sign Value Performing Clinician Facility 03-10-2025 13:30-0400 Body height 170.2 cm Pst 1 [facility] 03-10-2025 13:30-0400 Body mass index (BMI) [Ratio] 19.89 kg/m2 Pst 1 [facility] 03-10-2025 13:30-0400 Body temperature 98.2 [degF] [facility] 1 [facility] 03-10-2025 13:30-0400 Body weight 57.61 kg Pst 1 [facility] 03-10-2025 13:30-0400 Diastolic blood pressure 61 mm[Hg] Pst 1 [facility] 03-10-2025 13:30-0400 Heart rate 76 /min Pst 1 [facility] 03-10-2025 13:30-0400 Respiratory rate 16 /min Pst 1 [facility] 03-10-2025 13:30-0400 SaO2% (BldA) [Mass fraction] 99 % Pst 1 [facility] 03-10-2025 13:30-0400 Systolic blood pressure 123 mm[Hg] Pst 1 [facility] 03-10-2025 11:49-0400 Body height 170.2 cm Dominick Huggins MD Work Phone: [facility] 03-10-2025 11:49-0400 Body mass index (BMI) [Ratio] 20.58 kg/m2 Dominick Huggins MD Work Phone: [facility] 03-10-2025 11:49-0400 Body weight 59.6 kg Dominick Huggins MD Work Phone: [facility] 03-10-2025 11:49-0400 Diastolic blood pressure 60 mm[Hg] Dominick Huggins MD Work Phone: [facility] 03-10-2025 11:49-0400 Heart rate 79 /min Dominick Huggins MD Work Phone: [facility] 03-10-2025 11:49-0400 SaO2% (BldA) [Mass fraction] 98 % Dominick Huggins MD Work Phone: [facility] 03-10-2025 11:49-0400 Systolic blood pressure 115 mm[Hg] Dominick Huggins MD Work Phone: [facility] 03-08-2025 13:34-0400 Body temperature 98 [degF] Dr. Celia Al DO Work Phone: [facility] 03-08-2025 13:34-0400 Diastolic blood pressure 36 mm[Hg] Dr. Celia Al DO Work Phone: [facility] 03-08-2025 13:34-0400 Heart rate 76 /min Dr. Celia Al DO Work Phone: [facility] 03-08-2025 13:34-0400 Respiratory rate 16 /min Dr. Celia Al DO Work Phone: [facility] 03-08-2025 13:34-0400 SaO2% (BldA) [Mass fraction] 98 % Dr. Celia Al DO Work Phone: [facility] 03-08-2025 13:34-0400 Systolic blood pressure 103 mm[Hg] Dr. Celia Al DO Work Phone: [facility] 03-01-2025 13:36-0400 Body height 170.[address] Celia Al DO Work Phone: [facility] 03-01-2025 13:36-0400 Body mass index (BMI) [Ratio] 20.5 kg/m2 Dr. Celia Al DO Work Phone: [facility] 03-01-2025 13:36-0400 Body temperature 97.6 [degF] Dr. Celia Al DO Work Phone: [facility] 03-01-2025 13:36-0400 Body weight 59.[address] Celia Al DO Work Phone: [facility] 03-01-2025 13:36-0400 Diastolic blood pressure 62 mm[Hg] Dr. Celia Al DO Work Phone: [facility] 03-01-2025 13:36-0400 Heart rate 79 /min Dr. Celia Al DO Work Phone: [facility] 03-01-2025 13:36-0400 Respiratory rate 18 /min Dr. Celia Al DO Work Phone: [facility] 03-01-2025 13:36-0400 Systolic blood pressure 125 mm[Hg] Dr. Celia Al DO Work Phone: [facility] 02-20-2025 13:43-0400 Body mass index (BMI) [Ratio] 20.02 kg/m2 Celia Al DO Work Phone: [facility] 02-20-2025 13:43-0400 Body temperature 97.2 [degF] Celia Al DO Work Phone: [facility] 02-20-2025 13:43-0400 Body weight 57.97 kg Celia Al DO Work Phone: [facility] 02-20-2025 13:43-0400 Diastolic blood pressure 52 mm[Hg] Celia Al DO Work Phone: [facility] 02-20-2025 13:43-0400 Heart rate 53 /min Celia Al DO Work Phone: [facility] 02-20-2025 13:43-0400 Systolic blood pressure 120 mm[Hg] Celia Al DO Work Phone: [facility] 02-15-2025 11:00-0400 Diastolic blood pressure 61 mm[Hg] Haley O'Kenny PT [facility] 02-15-2025 11:00-0400 Heart rate 85 /min Haley O'Kenny PT [facility] 02-15-2025 11:00-0400 SaO2% (BldA) [Mass fraction] 100 % Haley O'Kenny PT [facility] 02-15-2025 11:00-0400 Systolic blood pressure 113 mm[Hg] Haley O'Kenny PT [facility] 02-08-2025 11:15-0400 Diastolic blood pressure 70 mm[Hg] Dominick Huggins MD Work Phone: [facility] 02-08-2025 11:15-0400 Heart rate 67 /min Dominick Huggins MD Work Phone: [facility] 02-08-2025 11:15-0400 SaO2% (BldA) [Mass fraction] 97 % Dominick Huggins MD Work Phone: [facility] 02-08-2025 11:15-0400 Systolic blood pressure 152 mm[Hg] Dominick Huggins MD Work Phone: [facility] 02-08-2025 10:29-0400 Body height 170.2 cm Dominick Huggins MD Work Phone: [facility] 02-08-2025 10:29-0400 Body mass index (BMI) [Ratio] 21.13 kg/m2 Dominick Huggins MD Work Phone: [facility] 02-08-2025 10:29-0400 Body weight 61.2 kg Dominick Huggins MD Work Phone: [facility] 02-07-2025 14:49-0400 Body mass index (BMI) [Ratio] 20.99 kg/m2 Celia Al DO Work Phone: [facility] 02-07-2025 14:49-0400 Body temperature 98.01 [degF] Celia Al DO Work Phone: [facility] 02-07-2025 14:49-0400 Body weight 60.78 kg Celia Al DO Work Phone: [facility] 02-07-2025 14:49-0400 Diastolic blood pressure 52 mm[Hg] Celia Al DO Work Phone: [facility] 02-07-2025 14:49-0400 Heart rate 94 /min Celia Al DO Work Phone: [facility] 02-07-2025 14:49-0400 Systolic blood pressure 120 mm[Hg] Celia Al DO Work Phone: [facility] 01-27-2025 11:23-0400 Body mass index (BMI) [Ratio] 21.08 kg/m2 Celia Al DO Work Phone: [facility] 01-27-2025 11:23-0400 Body weight 61.05 kg Celia Al DO Work Phone: [facility] 01-27-2025 11:23-0400 Diastolic blood pressure 50 mm[Hg] Celia Al DO Work Phone: [facility] 01-27-2025 11:23-0400 Heart rate 78 /min Celia Al DO Work Phone: [facility] 01-27-2025 11:23-0400 SaO2% (BldA) [Mass fraction] 95 % Celia Al DO Work Phone: [facility] 01-27-2025 11:23-0400 Systolic blood pressure 126 mm[Hg] Celia Al DO Work Phone: [facility] 01-18-2025 08:32-0400 Body mass index (BMI) [Ratio] 20.89 kg/m2 Dominick Huggins MD Work Phone: [facility] 01-18-2025 08:32-0400 Body weight 60.5 kg Dominick Huggins MD Work Phone: [facility] 01-18-2025 08:32-0400 Diastolic blood pressure 49 mm[Hg] Dominick Huggins MD Work Phone: [facility] Comment on above: Patient states that her bottom numbers have been low for quite some time 01-18-2025 08:32-0400 Heart rate 84 /min Dominick Huggins MD Work Phone: [facility] 01-18-2025 08:32-0400 Respiratory rate 16 /min Dominick Huggins MD Work Phone: [facility] 01-18-2025 08:32-0400 SaO2% (BldA) [Mass fraction] 97 % Dominick Huggins MD Work Phone: [facility] 01-18-2025 08:32-0400 Systolic blood pressure 113 mm[Hg] Dominick Huggins MD Work Phone: [facility] Comment on above: Patient states that her bottom numbers have been low for quite some time 01-17-2025 18:55-0400 Diastolic blood pressure 51 mm[Hg] Parrish Chaidez DO Work Phone: [facility] [employer] 01-17-2025 18:55-0400 Heart rate 75 /min Parrish Chaidez DO Work Phone: [facility] [employer] 01-17-2025 18:55-0400 Respiratory rate 18 /min Parrish Chaidez DO Work Phone: [facility] [employer] 01-17-2025 18:55-0400 SaO2% (BldA) [Mass fraction] 100 % Parrish Chaidez DO Work Phone: [facility] [employer] 01-17-2025 18:55-0400 Systolic blood pressure 167 mm[Hg] Parrish Chaidez DO Work Phone: [facility] [employer] 01-17-2025 18:54-0400 Body temperature 97.9 [degF] Parrish Chaidez DO Work Phone: [facility] [employer] 01-17-2025 11:39-0400 Body mass index (BMI) [Ratio] 20.36 kg/m2 Parrish Chaidez DO Work Phone: [facility] [employer] 01-17-2025 11:39-0400 Body weight 58.97 kg Parrish Chaidez DO Work Phone: [facility] [employer] 01-16-2025 11:34-0400 Body height 170.2 cm Marcia Correa APRN - [place] Work Phone: [facility] [employer] 01-16-2025 11:34-0400 Body mass index (BMI) [Ratio] 20.36 kg/m2 Marcia Correa APRN - [place] Work Phone: [facility] [employer] 01-16-2025 11:34-0400 Body weight 58.97 kg Marcia Correa APRN - [place] Work Phone: [facility] [employer] 01-16-2025 11:34-0400 Diastolic blood pressure 55 mm[Hg] Marcia Correa APRN - [place] Work Phone: [facility] [employer] 01-16-2025 11:34-0400 Heart rate 83 /min Marcia Correa APRN - [place] Work Phone: [facility] [employer] 01-16-2025 11:34-0400 Systolic blood pressure 108 mm[Hg] Marcia Inman WINDOWS TECHNICAL SPECIALIST Work Phone: [facility] [employer] 12-28-2024 14:26-0400 Body height 170.2 cm Nickolas Pagan MD Work Phone: [facility] [employer] 12-28-2024 14:26-0400 Body mass index (BMI) [Ratio] 20.83 kg/m2 Nickolas Pagan MD Work Phone: [facility] [employer] 12-28-2024 14:26-0400 Body weight 60.33 kg Nickolas Pagan MD Work Phone: [facility] [employer] 12-28-2024 14:26-0400 Diastolic blood pressure 56 mm[Hg] Nickolas Pagan MD Work Phone: [facility] [employer] 12-28-2024 14:26-0400 Heart rate 56 /min Nickolas Pagan MD Work Phone: [facility] [employer] 12-28-2024 14:26-0400 SaO2% (BldA) [Mass fraction] 97 % Nickolas Pagan MD Work Phone: [facility] [employer] 12-28-2024 14:26-0400 Systolic blood pressure 143 mm[Hg] Nickolas Pagan MD Work Phone: [facility] [employer] 12-12-2024 12:56-0400 Body mass index (BMI) [Ratio] 21.22 kg/m2 Rashi Jerome MD Work Phone: [facility] [employer] 12-12-2024 12:56-0400 Body weight 61.46 kg Rashi Jerome MD Work Phone: [facility] [employer] 12-12-2024 12:56-0400 Diastolic blood pressure 56 mm[Hg] Rashi Jerome MD Work Phone: [facility] [employer] 12-12-2024 12:56-0400 Heart rate 72 /min Rashi Jerome MD Work Phone: [facility] 12-12-2024 12:56-0400 SaO2% (BldA) [Mass fraction] 97 % Rashi Jerome MD Work Phone: [facility] [employer] 12-12-2024 12:56-0400 Systolic blood pressure 134 mm[Hg] Rashi Jerome MD Work Phone: [facility] 11-25-2024 13:07-0400 Body height 170.2 cm Celia Al DO Work Phone: [facility] 11-25-2024 13:07-0400 Body mass index (BMI) [Ratio] 20.52 kg/m2 Celia Al DO Work Phone: [facility] 11-25-2024 13:07-0400 Body temperature 97.7 [degF] Celia Al DO Work Phone: [facility] 11-25-2024 13:07-0400 Body weight 59.42 kg Celia Al DO Work Phone: [facility] 11-25-2024 13:07-0400 Diastolic blood pressure 57 mm[Hg] Celia Al DO Work Phone: [facility] 11-25-2024 13:07-0400 Heart rate 65 /min Celia Al DO Work Phone: [facility] 11-25-2024 13:07-0400 SaO2% (BldA) [Mass fraction] 97 % Celia Al DO Work Phone: [facility] 11-25-2024 13:07-0400 Systolic blood pressure 134 mm[Hg] Celia Al DO Work Phone: [facility] 11-18-2024 11:37-0400 Body mass index (BMI) [Ratio] 20.83 kg/m2 Celia Al DO Work Phone: [facility] 11-18-2024 11:37-0400 Body temperature 97.7 [degF] Celia Al DO Work Phone: [facility] 11-18-2024 11:37-0400 Body weight 60.33 kg Celia Al DO Work Phone: [facility] 11-18-2024 11:37-0400 Diastolic blood pressure 50 mm[Hg] Celia Al DO Work Phone: [facility] 11-18-2024 11:37-0400 Heart rate 103 /min Celia Al DO Work Phone: [facility] 11-18-2024 11:37-0400 SaO2% (BldA) [Mass fraction] 100 % Celia Al DO Work Phone: [facility] 11-18-2024 11:37-0400 Systolic blood pressure 118 mm[Hg] Celia Al DO Work Phone: [facility] 11-11-2024 11:02-0400 Body temperature 98.49 [degF] Ned Glozman DO Work Phone: [facility] [employer] 11-11-2024 11:02-0400 Diastolic blood pressure 46 mm[Hg] Ned Glozman DO Work Phone: [facility] [employer] 11-11-2024 11:02-0400 Heart rate 68 /min Ned Glozman DO Work Phone: [facility] [employer] 11-11-2024 11:02-0400 Respiratory rate 16 /min Ned Glozman DO Work Phone: [employer] 11-11-2024 11:02-0400 SaO2% (BldA) [Mass fraction] 95 % Ned Glozman DO Work Phone: [employer] 11-11-2024 11:02-0400 Systolic blood pressure 144 mm[Hg] Ned Glozman DO Work Phone: [facility] [employer] 11-09-2024 11:10-0400 Body height 170.2 cm Ned Glozman DO Work Phone: [facility] [employer] 11-08-2024 19:55-0400 Body mass index (BMI) [Ratio] 20.96 kg/m2 Ned Alvarado DO Work Phone: [facility] 11-08-2024 19:55-0400 Body weight 60.7 kg Ned Alvarado DO Work Phone: [facility] [employer] 11-07-2024 10:36-0400 Body height 170.2 cm Marcia Correa APRN - WINDOWS TECHNICAL SPECIALIST Work Phone: [facility] [employer] 11-07-2024 10:36-0400 Body mass index (BMI) [Ratio] 21.26 kg/m2 Marcia Correa APRN - WINDOWS TECHNICAL SPECIALIST Work Phone: [facility] [employer] 11-07-2024 10:36-0400 Body weight 61.57 kg Marcia Correa APRN - WINDOWS TECHNICAL SPECIALIST Work Phone: [facility] [employer] 11-07-2024 10:36-0400 Diastolic blood pressure 50 mm[Hg] Marcia Correa APRN - WINDOWS TECHNICAL SPECIALIST Work Phone: [facility] [employer] 11-07-2024 10:36-0400 Heart rate 78 /min Marcia Correa APRN - WINDOWS TECHNICAL SPECIALIST Work Phone: [facility] [employer] 11-07-2024 10:36-0400 Systolic blood pressure 136 mm[Hg] Marcia Correa APRN - WINDOWS TECHNICAL SPECIALIST Work Phone: [facility] [employer] 10-28-2024 09:50-0400 Body height 170.2 cm Stephanie Natalia-Chavez DO Work Phone: [facility] [employer] 10-28-2024 09:50-0400 Body mass index (BMI) [Ratio] 20.83 kg/m2 Stephanie Natalia-Chavez DO Work Phone: [facility] [employer] 10-28-2024 09:50-0400 Body weight 60.33 kg Stephanie Natalia-Chavez DO Work Phone: [facility] [employer] 10-28-2024 09:50-0400 Diastolic blood pressure 64 mm[Hg] Stephanie Natalia-Chavez DO Work Phone: [facility] [employer] 10-28-2024 09:50-0400 Heart rate 89 /min Stephanie Bhatia-Chavez DO Work Phone: [facility] [employer] 10-28-2024 09:50-0400 SaO2% (BldA) [Mass fraction] 97 % Stephanie Bhatia-Chavez DO Work Phone: [facility] [employer] 10-28-2024 09:50-0400 Systolic blood pressure 126 mm[Hg] Stephanie Bhatia-Chavez DO Work Phone: [facility] [employer] 10-21-2024 19:59-0500 Diastolic blood pressure 49 mm[Hg] Mejgon Kaylynn DO Work Phone: [facility] [employer] 10-21-2024 19:59-0500 Heart rate 77 /min Mejgon Kaylynn DO Work Phone: [facility] [employer] 10-21-2024 19:59-0500 Respiratory rate 18 /min Mejgon Kaylynn DO Work Phone: [facility] [employer] 10-21-2024 19:59-0500 SaO2% (BldA) [Mass fraction] 100 % Mejgon Kaylynn DO Work Phone: [facility] [employer] 10-21-2024 19:59-0500 Systolic blood pressure 119 mm[Hg] Mejgon Kaylynn DO Work Phone: [facility] [employer] 10-21-2024 16:47-0500 Body temperature 97.81 [degF] Mejgon Kaylynn DO Work Phone: [facility] 10-21-2024 15:05-0500 Body mass index (BMI) [Ratio] 19.7 kg/m2 Celia Al DO Work Phone: [facility] 10-21-2024 15:05-0500 Body temperature 97.3 [degF] Celia Al DO Work Phone: [facility] 10-21-2024 15:05-0500 Body weight 57.06 kg Celia Al DO Work Phone: [facility] 10-21-2024 15:05-0500 Diastolic blood pressure 46 mm[Hg] Celia Al DO Work Phone: [facility] 10-21-2024 15:05-0500 Heart rate 47 /min Celia Al DO Work Phone: [facility] 10-21-2024 15:05-0500 SaO2% (BldA) [Mass fraction] 93 % Celia Al DO Work Phone: [facility] 10-21-2024 15:05-0500 Systolic blood pressure 112 mm[Hg] Celia Al DO Work Phone: [facility] 09-16-2024 12:57-0500 Body height 170.2 cm Marcia Correa DEWATERER OPERATOR - WINDOWS TECHNICAL SPECIALIST Work Phone: [facility] [employer] 09-16-2024 12:57-0500 Body mass index (BMI) [Ratio] 20.91 kg/m2 Marcia Correa DEWATERER OPERATOR - WINDOWS TECHNICAL SPECIALIST Work Phone: [facility] 09-16-2024 12:57-0500 Body weight 60.55 kg Marcia Correa DEWATERER OPERATOR - WINDOWS TECHNICAL SPECIALIST Work Phone: [facility] [employer] 09-16-2024 12:57-0500 Diastolic blood pressure 56 mm[Hg] Marcia Correa DEWATERER OPERATOR - WINDOWS TECHNICAL SPECIALIST Work Phone: [facility] [employer] 09-16-2024 12:57-0500 Heart rate 64 /min Marcia Correa DEWATERER OPERATOR - WINDOWS TECHNICAL SPECIALIST Work Phone: [facility] [employer] 09-16-2024 12:57-0500 Systolic blood pressure 128 mm[Hg] Marcia Correa DEWATERER OPERATOR - WINDOWS TECHNICAL SPECIALIST Work Phone: [facility] [employer] 09-09-2024 09:32-0500 Body height 170.2 cm Celia Al DO Work Phone: [facility] 09-09-2024 09:32-0500 Body mass index (BMI) [Ratio] 21.14 kg/m2 Celia Al DO Work Phone: [facility] 09-09-2024 09:32-0500 Body temperature 97 [degF] Celia La DO Work Phone: [facility] 09-09-2024 09:32-0500 Body weight 61.24 kg Celia Al DO Work Phone: [facility] 09-09-2024 09:32-0500 Diastolic blood pressure 50 mm[Hg] Celia Al DO Work Phone: [facility] 09-09-2024 09:32-0500 Heart rate 78 /min Celia Al DO Work Phone: [facility] 09-09-2024 09:32-0500 SaO2% (BldA) [Mass fraction] 99 % Celia Al DO Work Phone: [facility] 09-09-2024 09:32-0500 Systolic blood pressure 126 mm[Hg] Celia Al DO Work Phone: [facility] 08-29-2024 14:21-0500 Diastolic blood pressure 43 mm[Hg] Leticia Landa MD Work Phone: [facility] 08-29-2024 14:21-0500 Heart rate 85 /min Leticia Landa MD Work Phone: [facility] [employer] 08-29-2024 14:21-0500 SaO2% (BldA) [Mass fraction] 95 % Leticia Landa MD Work Phone: [facility] [employer] 08-29-2024 14:21-0500 Systolic blood pressure 156 mm[Hg] Leticia Landa MD Work Phone: [facility] [employer] 08-29-2024 08:51-0500 Respiratory rate 16 /min Leticia Landa MD Work Phone: [facility] [employer] 08-29-2024 08:28-0500 Body temperature 98.6 [degF] Leticia Landa MD Work Phone: [facility] [employer] 08-26-2024 15:46-0500 Body height 170.2 cm Leticia Landa MD Work Phone: [facility] 08-26-2024 15:46-0500 Body mass index (BMI) [Ratio] 21.93 kg/m2 Leticia Landa MD Work Phone: [facility] 08-26-2024 15:46-0500 Body weight 63.5 kg Leticia Landa MD Work Phone: [facility] 08-26-2024 13:57-0500 Body temperature 98.01 [degF] Celia Al DO Work Phone: [facility] 08-26-2024 13:57-0500 Diastolic blood pressure 64 mm[Hg] Celia Al DO Work Phone: [facility] 08-26-2024 13:57-0500 Heart rate 76 /min Celia Al DO Work Phone: [facility] 08-26-2024 13:57-0500 SaO2% (BldA) [Mass fraction] 95 % Celia Al DO Work Phone: [facility] 08-26-2024 13:57-0500 Systolic blood pressure 138 mm[Hg] Celia Al DO Work Phone: [facility] 08-19-2024 11:34-0500 Diastolic blood pressure 50 mm[Hg] Stephanie Natalia-Chavez DO Work Phone: [facility] [employer] 08-19-2024 11:34-0500 Systolic blood pressure 175 mm[Hg] Stephanie Natalia-Chavez DO Work Phone: [facility] [employer] 08-19-2024 11:29-0500 Body height 170.2 cm Stephanie Natalia-Chavez DO Work Phone: [facility] [employer] 08-19-2024 11:29-0500 Body mass index (BMI) [Ratio] 21.93 kg/m2 Stephanie Bhatia-Chavez DO Work Phone: [facility] 08-19-2024 11:29-0500 Body weight 63.5 kg Stephanie Bhatia-Chavez DO Work Phone: [facility] [employer] 08-19-2024 11:29-0500 Heart rate 77 /min Stephanie Bhatia-Chavez DO Work Phone: [facility] 08-19-2024 11:29-0500 SaO2% (BldA) [Mass fraction] 94 % Stephanie Bhatia-Chavez DO Work Phone: [facility] 08-01-2024 11:48-0500 Diastolic blood pressure 72 mm[Hg] Meet Denny OCHOA Work Phone: [facility] 08-01-2024 11:48-0500 Systolic blood pressure 148 mm[Hg] Meet Denny OCHOA Work Phone: [facility] 08-01-2024 11:28-0500 Body height 170.2 cm Meet Denny OCHOA Work Phone: [facility] 08-01-2024 11:28-0500 Body mass index (BMI) [Ratio] 21.46 kg/m2 Meet Denny OCHOA Work Phone: [facility] 08-01-2024 11:28-0500 Body weight 62.14 kg Meet Denny OCHOA Work Phone: [facility] 08-01-2024 11:28-0500 Heart rate 66 /min Meet Denny OCHOA Work Phone: [employer] 08-01-2024 11:28-0500 SaO2% (BldA) [Mass fraction] 98 % Meet Denny OCHOA Work Phone: [facility] 07-07-2024 14:24-0500 Body height 170.2 cm Stephanie Bhatia-Chavez DO Work Phone: [facility] 07-07-2024 14:24-0500 Body mass index (BMI) [Ratio] 21.77 kg/m2 Stephanie Bhatia-Chavez DO Work Phone: [employer] 07-07-2024 14:24-0500 Body temperature 97.2 [degF] Stephanieindio Bhatia-Chavez DO Work Phone: [facility] [employer] 07-07-2024 14:24-0500 Body weight 63.05 kg Stephanie Bhatia-Chavez DO Work Phone: [facility] [employer] 07-07-2024 14:24-0500 Diastolic blood pressure 60 mm[Hg] Stephanieindio Bhatia-Chavez DO Work Phone: [facility] [employer] 07-07-2024 14:24-0500 Heart rate 65 /min Stephanie Bhatia-Chavez DO Work Phone: [facility] [employer] 07-07-2024 14:24-0500 Respiratory rate 14 /min Stephanie Bhatia-Chavez DO Work Phone: [facility] 07-07-2024 14:24-0500 SaO2% (BldA) [Mass fraction] 95 % Stephanie Bhatia-Chavez DO Work Phone: [facility] [employer] Comment on above: 07-07-2024 14:24-0500 Systolic blood pressure 134 mm[Hg] Stephanie Bhatia-Chavez DO Work Phone: [facility] [employer] 06-07-2024 13:50-0400 SaO2% (BldA) [Mass fraction] 97 % Stephanie Bhatia-Chavez DO Work Phone: [facility] [employer] 06-07-2024 13:02-0400 Body height 170.2 cm Stephanie Natalia-Chavez DO Work Phone: [facility] [employer] 06-07-2024 13:02-0400 Body mass index (BMI) [Ratio] 21.71 kg/m2 Stephanie Bhatia-Chavez DO Work Phone: [facility] 06-07-2024 13:02-0400 Body weight 62.87 kg Stephanieindio Bhatia-Chavez DO Work Phone: [facility] [employer] 06-07-2024 13:02-0400 Diastolic blood pressure 50 mm[Hg] Stephanie Robersonodgrass DO Work Phone: [facility] 06-07-2024 13:02-0400 Heart rate 62 /min Stephanie GonzalezChavez DO Work Phone: [facility] 06-07-2024 13:02-0400 Systolic blood pressure 132 mm[Hg] Stephanie Robersonodgrass DO Work Phone: [facility] [employer] 06-01-2024 09:41-0400 Diastolic blood pressure 44 mm[Hg] Gi Mendoza DEWATERER OPERATOR - WINDOWS TECHNICAL SPECIALIST Work Phone: [facility] 06-01-2024 09:41-0400 Systolic blood pressure 164 mm[Hg] Gi Mendoza DEWATERER OPERATOR - WINDOWS TECHNICAL SPECIALIST Work Phone: [facility] 06-01-2024 08:50-0400 Body height 170.2 cm Gi Mendoza DEWATERER OPERATOR - WINDOWS TECHNICAL SPECIALIST Work Phone: [facility] [employer] 06-01-2024 08:50-0400 Body mass index (BMI) [Ratio] 21.77 kg/m2 Gi Mendoza DEWATERER OPERATOR - WINDOWS TECHNICAL SPECIALIST Work Phone: [facility] 06-01-2024 08:50-0400 Body weight 63.05 kg Gi Mendoza DEWATERER OPERATOR - WINDOWS TECHNICAL SPECIALIST Work Phone: [facility] 06-01-2024 08:50-0400 Heart rate 55 /min Gi Mendoza DEWATERER OPERATOR - WINDOWS TECHNICAL SPECIALIST Work Phone: [facility] 06-01-2024 08:50-0400 SaO2% (BldA) [Mass fraction] 95 % Gi Mendoza DEWATERER OPERATOR - WINDOWS TECHNICAL SPECIALIST Work Phone: [facility] 05-05-2024 17:30-0400 Diastolic blood pressure 51 mm[Hg] Walt Leigh MD Work Phone: [facility] 09-19-2024 17:30-0400 Heart rate 69 /min Meet Denny OCHOA Work Phone: [facility] 05-05-2024 17:30-0400 Respiratory rate 20 /min Meet Denny OCHOA Work Phone: [facility] 05-05-2024 17:30-0400 Systolic blood pressure 169 mm[Hg] Meet Denny OCHOA Work Phone: [facility] 05-05-2024 16:00-0400 SaO2% (BldA) [Mass fraction] 100 % Meet Denny OCHOA Work Phone: [facility] 05-05-2024 15:01-0400 Body temperature 97 [degF] Meet Denny OCHOA Work Phone: [facility] 05-05-2024 10:56-0400 Body height 170.2 cm Meet Denny OCHOA Work Phone: [facility] 05-05-2024 10:56-0400 Body mass index (BMI) [Ratio] 22.41 kg/m2 Meet Denny OCHOA Work Phone: [facility] 05-05-2024 10:56-0400 Body weight 64.9 kg Meet Denny OCHOA Work Phone: [facility] 04-15-2024 09:23-0400 Diastolic blood pressure 64 mm[Hg] Meet Denny OCHOA Work Phone: [facility] 04-15-2024 09:23-0400 Systolic blood pressure 182 mm[Hg] Meet Denny OCHOA Work Phone: [facility] 04-15-2024 09:01-0400 Body height 170.2 cm Meet Denny OCHOA Work Phone: [facility] 04-15-2024 09:01-0400 Body mass index (BMI) [Ratio] 22.4 kg/m2 Meet Denny OCHOA Work Phone: [facility] 04-15-2024 09:01-0400 Body weight 64.86 kg Meet Denny OCHOA Work Phone: [facility] 04-15-2024 09:01-0400 Heart rate 64 /min Meet Denny OCHOA Work Phone: [facility] 04-15-2024 09:01-0400 SaO2% (BldA) [Mass fraction] 97 % Meet Denny OCHOA Work Phone: [facility] 03-11-2024 11:42-0400 Diastolic blood pressure 63 mm[Hg] Stephanie Natalia-Chavez DO Work Phone: [facility] 03-11-2024 11:42-0400 Heart rate 64 /min Stephanie Natalia-Chavez DO Work Phone: [facility] 03-11-2024 11:42-0400 Systolic blood pressure 108 mm[Hg] Stephanie Natalia-Chavez DO Work Phone: [facility] 03-11-2024 11:13-0400 Body height 170.8 cm Stephanie Natalia-Chavez DO Work Phone: [facility] 03-11-2024 11:13-0400 Body temperature 96.49 [degF] Stephanie Natalia-Chaevz DO Work Phone: [facility] 03-11-2024 11:13-0400 SaO2% (BldA) [Mass fraction] 100 % Stephanie Natalia-Chavez DO Work Phone: [facility] 02-15-2024 13:41-0400 Body height 170.8 cm Kristy Doran DEWATERER OPERATOR - WINDOWS TECHNICAL SPECIALIST Work Phone: [facility] 02-15-2024 13:41-0400 Body mass index (BMI) [Ratio] 21.7 kg/m2 Kristy Doran DEWATERER OPERATOR - WINDOWS TECHNICAL SPECIALIST Work Phone: [facility] 02-15-2024 13:41-0400 Body weight 63.32 kg Kristy Doran DEWATERER OPERATOR - WINDOWS TECHNICAL SPECIALIST Work Phone: [facility] 02-15-2024 13:41-0400 Diastolic blood pressure 46 mm[Hg] Kristy Doran DEWATERER OPERATOR - WINDOWS TECHNICAL SPECIALIST Work Phone: [facility] 02-15-2024 13:41-0400 Heart rate 52 /min Kristy Brendanynick DEWATERER OPERATOR - WINDOWS TECHNICAL SPECIALIST Work Phone: [facility] 02-15-2024 13:41-0400 Systolic blood pressure 102 mm[Hg] Kristy Brendanynick DEWATERER OPERATOR - WINDOWS TECHNICAL SPECIALIST Work Phone: [facility] 02-09-2024 13:15-0400 Diastolic blood pressure 56 mm[Hg] Shmg Nurse/Ma [facility] 02-09-2024 13:15-0400 Heart rate 62 /min Sh[facility] Nurse/Ma [facility] 02-09-2024 13:15-0400 Systolic blood pressure 118 mm[Hg] Shmg Nurse/Ma [facility] 02-03-2024 09:10-0400 Body mass index (BMI) [Ratio] 22.08 kg/m2 Celia Al DO Work Phone: [facility] 02-03-2024 09:10-0400 Body weight 63.96 kg Celia Al DO Work Phone: [facility] 02-03-2024 09:10-0400 Diastolic blood pressure 62 mm[Hg] Celia Al DO Work Phone: [facility] 02-03-2024 09:10-0400 Heart rate 62 /min Celia Al DO Work Phone: [facility] 02-03-2024 09:10-0400 Systolic blood pressure 136 mm[Hg] Celia Al DO Work Phone: [facility] 02-01-2024 13:05-0400 Diastolic blood pressure 40 mm[Hg] Kristy Brendanynick DEWATERER OPERATOR - WINDOWS TECHNICAL SPECIALIST Work Phone: [facility] 02-01-2024 13:05-0400 Systolic blood pressure 106 mm[Hg] Kristy Brendanynick DEWATERER OPERATOR - WINDOWS TECHNICAL SPECIALIST Work Phone: [facility] 02-01-2024 13:00-0400 Body height 170.2 cm Kristy Brendanynick DEWATERER OPERATOR - WINDOWS TECHNICAL SPECIALIST Work Phone: [facility] 02-01-2024 13:00-0400 Body mass index (BMI) [Ratio] 22.4 kg/m2 Kristy Doran DEWATERER OPERATOR - WINDOWS TECHNICAL SPECIALIST Work Phone: [facility] 02-01-2024 13:00-0400 Body weight 64.86 kg Kristy Doran DEWATERER OPERATOR - WINDOWS TECHNICAL SPECIALIST Work Phone: [facility] 02-01-2024 13:00-0400 Heart rate 74 /min Kristy Doran DEWATERER OPERATOR - WINDOWS TECHNICAL SPECIALIST Work Phone: [facility] 02-01-2024 13:00-0400 Respiratory rate 15 /min Kristy Doran DEWATERER OPERATOR - WINDOWS TECHNICAL SPECIALIST Work Phone: [facility] 01-22-2024 17:01-0400 Diastolic blood pressure 54 mm[Hg] [employer] Work Phone: [facility] 01-22-2024 17:01-0400 Heart rate 73 /min [employer] Work Phone: [facility] 01-22-2024 17:01-0400 Systolic blood pressure 134 mm[Hg] [employer] Work Phone: [facility] 01-22-2024 17:00-0400 Body temperature 96.6 [degF] [employer] Work Phone: [facility] 01-22-2024 17:00-0400 SaO2% (BldA) [Mass fraction] 93 % [employer] Work Phone: [facility] 01-22-2024 12:00-0400 Respiratory rate 16 /min [employer] Work Phone: [facility] 01-22-2024 10:32-0400 Body height 170.2 cm [employer] Work Phone: [facility] 01-22-2024 10:32-0400 Body mass index (BMI) [Ratio] 24.43 kg/m2 [employer] Work Phone: [facility] 01-22-2024 10:32-0400 Body weight 70.76 kg Sandrine Harris DO Work Phone: [facility] 01-19-2024 15:22-0400 SaO2% (BldA) [Mass fraction] 97.9 % Sandrine Harris DO Work Phone: [facility] 01-19-2024 10:20-0400 Body mass index (BMI) [Ratio] 23.49 kg/m2 Celia Al DO Work Phone: [facility] 01-19-2024 10:20-0400 Body temperature 97.5 [degF] Celia Al DO Work Phone: [facility] 01-19-2024 10:20-0400 Body weight 68.04 kg Celia Al DO Work Phone: [facility] 01-19-2024 10:20-0400 Diastolic blood pressure 70 mm[Hg] Celia Al DO Work Phone: [facility] 01-19-2024 10:20-0400 Heart rate 78 /min Celia Al DO Work Phone: [facility] 01-19-2024 10:20-0400 Respiratory rate 16 /min Celia Al DO Work Phone: [facility] 01-19-2024 10:20-0400 SaO2% (BldA) [Mass fraction] 94 % Celia Al DO Work Phone: [facility] 01-19-2024 10:20-0400 Systolic blood pressure 117 mm[Hg] Celia Al DO Work Phone: [facility] 01-08-2024 10:50-0400 Diastolic blood pressure 78 mm[Hg] Jerel Fraser DO Work Phone: [facility] 01-08-2024 10:50-0400 Systolic blood pressure 126 mm[Hg] Jerel Fraser DO Work Phone: [facility] 01-08-2024 10:09-0400 Body mass index (BMI) [Ratio] 23.49 kg/m2 Jerel Fraser DO Work Phone: [facility] 01-08-2024 10:09-0400 Body temperature 97.7 [degF] Jerel Fraser DO Work Phone: [facility] 01-08-2024 10:09-0400 Body weight 68.04 kg Jerel Fraser DO Work Phone: [facility] 01-08-2024 10:09-0400 Heart rate 91 /min Jerel Fraser DO Work Phone: [facility] 01-08-2024 10:09-0400 SaO2% (BldA) [Mass fraction] 96 % Jerel Fraser DO Work Phone: [facility] 12-04-2023 12:52-0400 Heart rate 87 /min Stephanie Bhatia-Chavez DO Work Phone: [facility] [employer] 12-04-2023 10:45-0400 Body height 170.2 cm Stephanie Bhatia-Chavez DO Work Phone: [employer] 12-04-2023 10:45-0400 Body mass index (BMI) [Ratio] 23.37 kg/m2 Stephanie Bhatia-Chavez DO Work Phone: [employer] 12-04-2023 10:45-0400 Body temperature 96.69 [degF] Stephanie Natalia-Chavez DO Work Phone: [facility] 12-04-2023 10:45-0400 Body weight 67.68 kg Stephanie Natalia-Chavez DO Work Phone: [facility] 12-04-2023 10:45-0400 Diastolic blood pressure 73 mm[Hg] Stephanie Natalia-Chavez DO Work Phone: [facility] 12-04-2023 10:45-0400 SaO2% (BldA) [Mass fraction] 99 % Stephanie Natalia-Chavez DO Work Phone: [employer] 12-04-2023 10:45-0400 Systolic blood pressure 111 mm[Hg] Stephanie Natalia-Chavez DO Work Phone: [facility] 10-16-2023 13:38-0500 Body mass index (BMI) [Ratio] 22.77 kg/m2 Celia Al DO Work Phone: [facility] 10-16-2023 13:38-0500 Body weight 65.95 kg Celia Al DO Work Phone: [facility] 10-16-2023 13:38-0500 Diastolic blood pressure 56 mm[Hg] Celia Al DO Work Phone: [facility] 10-16-2023 13:38-0500 Heart rate 73 /min Celia Al DO Work Phone: [facility] 10-16-2023 13:38-0500 Systolic blood pressure 138 mm[Hg] Celia Al DO Work Phone: [facility] 10-06-2023 10:35-0500 Body height 170.2 cm Stephanie Natalia-Chavez DO Work Phone: [employer] [employer] 10-06-2023 08:03-0500 Body temperature 97.59 [degF] Stephanie Natalia-Chavez DO Work Phone: [facility] [employer] 10-06-2023 08:03-0500 Diastolic blood pressure 51 mm[Hg] Stephanie Natalia-Chavez DO Work Phone: [employer] 10-06-2023 08:03-0500 Heart rate 78 /min Stephanie Natalia-Chavez DO Work Phone: [employer] 10-06-2023 08:03-0500 Respiratory rate 16 /min Stephanie Natalia-Chavez DO Work Phone: [employer] 10-06-2023 08:03-0500 SaO2% (BldA) [Mass fraction] 93 % Stephanie Natalia-Chavez DO Work Phone: [facility] [employer] 10-06-2023 08:03-0500 Systolic blood pressure 140 mm[Hg] Stephanie Robersonodgrass DO Work Phone: [facility] [employer] 10-05-2023 07:22-0500 Body mass index (BMI) [Ratio] 22.87 kg/m2 Stephanie Bhatia-Chavez DO Work Phone: [facility] [employer] 10-05-2023 07:22-0500 Body weight 66.22 kg Stephanie Robersonodgrass DO Work Phone: [facility] [employer] 10-01-2023 15:51-0500 Diastolic blood pressure 74 mm[Hg] Jerel Fraser DO Work Phone: [facility] 10-01-2023 15:51-0500 Systolic blood pressure 192 mm[Hg] Jerel Fraser DO Work Phone: [facility] 10-01-2023 15:30-0500 Body height 170.2 cm Jerel Fraser DO Work Phone: [facility] 10-01-2023 15:30-0500 Body mass index (BMI) [Ratio] 23.02 kg/m2 Jerel Fraser DO Work Phone: [facility] 10-01-2023 15:30-0500 Body temperature 96.8 [degF] Jerel Fraser DO Work Phone: [facility] 10-01-2023 15:30-0500 Body weight 66.68 kg Jerel Fraser DO Work Phone: [facility] 10-01-2023 15:30-0500 Heart rate 69 /min Jerel Fraser DO Work Phone: [facility] 10-01-2023 15:30-0500 SaO2% (BldA) [Mass fraction] 96 % Jerel Fraser DO Work Phone: [facility] 09-29-2023 10:50-0500 Body height 170.2 cm Stephanie Natalia-Chavez DO Work Phone: [facility] [employer] 09-29-2023 10:50-0500 Body mass index (BMI) [Ratio] 22.71 kg/m2 Stephanie Bhatia-Chavez DO Work Phone: [facility] [employer] 09-29-2023 10:50-0500 Body temperature 96.91 [degF] Stephanie Bhatia-Chavez DO Work Phone: [facility] [employer] 09-29-2023 10:50-0500 Body weight 65.77 kg Stephanie Robersonodgrass DO Work Phone: [facility] [employer] 09-29-2023 10:50-0500 Diastolic blood pressure 78 mm[Hg] Stephanie Bhatia-Chavez DO Work Phone: [facility] [employer] 09-29-2023 10:50-0500 Heart rate 97 /min Stephanie Robersonodgrass DO Work Phone: [facility] [employer] 09-29-2023 10:50-0500 Respiratory rate 18 /min Stephanie Robersonodgrass DO Work Phone: [facility] [employer] 09-29-2023 10:50-0500 SaO2% (BldA) [Mass fraction] 96 % Stephanie Bhatia-Chavez DO Work Phone: [facility] [employer] 09-29-2023 10:50-0500 Systolic blood pressure 146 mm[Hg] Stephanie Robersonodgrass DO Work Phone: [facility] [employer] 09-25-2023 11:04-0500 Body height 170.2 cm Keven Priest MD Work Phone: [facility] [employer] 09-25-2023 11:04-0500 Body mass index (BMI) [Ratio] 22.87 kg/m2 Keven Priest MD Work Phone: [facility] [employer] 09-25-2023 11:04-0500 Body temperature 97.3 [degF] Keven Priest MD Work Phone: [facility] [employer] 09-25-2023 11:04-0500 Body weight 66.22 kg Keven Priest MD Work Phone: [facility] [employer] 09-25-2023 11:04-0500 Diastolic blood pressure 69 mm[Hg] Keven Priest MD Work Phone: [facility] [employer] 09-25-2023 11:04-0500 Heart rate 72 /min Keven Priest MD Work Phone: [facility] [employer] 09-25-2023 11:04-0500 SaO2% (BldA) [Mass fraction] 97 % Keven Priest MD Work Phone: [facility] [employer] 09-25-2023 11:04-0500 Systolic blood pressure 178 mm[Hg] Keven Priest MD Work Phone: [facility] [employer] 08-28-2023 13:01-0500 Body mass index (BMI) [Ratio] 23.09 kg/m2 Celia Al DO Work Phone: [facility] 08-28-2023 13:01-0500 Body weight 66.86 kg Celia Al DO Work Phone: [facility] 08-28-2023 13:01-0500 Diastolic blood pressure 62 mm[Hg] Celia Al DO Work Phone: [facility] 08-28-2023 13:01-0500 Heart rate 73 /min Celia Al DO Work Phone: [facility] 08-28-2023 13:01-0500 Systolic blood pressure 146 mm[Hg] Celia Al DO Work Phone: [facility] 08-26-2023 11:32-0500 Body height 170.2 cm Keven Priest MD Work Phone: [facility] [employer] 08-26-2023 11:32-0500 Body mass index (BMI) [Ratio] 22.91 kg/m2 Keven Priest MD Work Phone: [facility] [employer] 08-26-2023 11:32-0500 Body temperature 97.3 [degF] Keven Priest MD Work Phone: [facility] [employer] 08-26-2023 11:32-0500 Body weight 66.36 kg Keven Priest MD Work Phone: [facility] [employer] 08-26-2023 11:32-0500 Diastolic blood pressure 74 mm[Hg] Keven Priest MD Work Phone: [facility] [employer] 08-26-2023 11:32-0500 Heart rate 87 /min Keven Priest MD Work Phone: [facility] [employer] 08-26-2023 11:32-0500 SaO2% (BldA) [Mass fraction] 94 % Keven Priest MD Work Phone: [facility] [employer] 08-26-2023 11:32-0500 Systolic blood pressure 189 mm[Hg] Keven Priest MD Work Phone: [facility] [employer] 06-12-2023 15:07-0400 Body mass index (BMI) [Ratio] 23.59 kg/m2 Celia Al DO Work Phone: [facility] 06-12-2023 15:07-0400 Body weight 68.31 kg Celia Al DO Work Phone: [facility] 06-12-2023 15:07-0400 Diastolic blood pressure 58 mm[Hg] Celia Al DO Work Phone: [facility] 06-12-2023 15:07-0400 Heart rate 77 /min Celia Al DO Work Phone: [facility] 06-12-2023 15:07-0400 Systolic blood pressure 136 mm[Hg] Celia Al DO Work Phone: [facility] 05-07-2023 15:11-0400 Body height 170.2 cm Rashi Jerome MD Work Phone: [facility] [employer] 05-07-2023 15:11-0400 Body mass index (BMI) [Ratio] 24.26 kg/m2 Rashi Jerome MD Work Phone: [facility] [employer] 05-07-2023 15:11-0400 Body weight 70.26 kg Rashi Jerome MD Work Phone: [facility] [employer] 05-07-2023 15:11-0400 Diastolic blood pressure 60 mm[Hg] Rashi Jerome MD Work Phone: [facility] [employer] 05-07-2023 15:11-0400 Heart rate 72 /min Rashi Jerome MD Work Phone: [facility] [employer] 05-07-2023 15:11-0400 Respiratory rate 16 /min Rashi Jerome MD Work Phone: [facility] [employer] 05-07-2023 15:11-0400 Systolic blood pressure 130 mm[Hg] Rashi Jerome MD Work Phone: [facility] [employer] 04-22-2023 10:52-0400 Body height 170.2 cm Keven Priest MD Work Phone: [facility] [employer] 04-22-2023 10:52-0400 Body mass index (BMI) [Ratio] 23.65 kg/m2 Keven Priest MD Work Phone: [facility] [employer] 04-22-2023 10:52-0400 Body temperature 97 [degF] Keven Priest MD Work Phone: [facility] [employer] 04-22-2023 10:52-0400 Body weight 68.49 kg Keven Priest MD Work Phone: [facility] [employer] 04-22-2023 10:52-0400 Diastolic blood pressure 66 mm[Hg] Keven Priest MD Work Phone: [facility] [employer] 04-22-2023 10:52-0400 Heart rate 66 /min Kveen Priest MD Work Phone: [facility] [employer] 04-22-2023 10:52-0400 SaO2% (BldA) [Mass fraction] 96 % Keven Priest MD Work Phone: [facility] [employer] 04-22-2023 10:52-0400 Systolic blood pressure 168 mm[Hg] Keven Priest MD Work Phone: [facility] [employer] 12-18-2022 11:31-0400 Body height 170.2 cm Keven Priest MD Work Phone: [facility] [employer] 12-18-2022 11:31-0400 Body mass index (BMI) [Ratio] 24.29 kg/m2 Keven Priest MD Work Phone: [facility] [employer] 12-18-2022 11:31-0400 Body temperature 97 [degF] Keven Priest MD Work Phone: [facility] [employer] 12-18-2022 11:31-0400 Body weight 70.35 kg Keven Priest MD Work Phone: [facility] [employer] 12-18-2022 11:31-0400 Diastolic blood pressure 61 mm[Hg] Keven Priest MD Work Phone: [facility] [employer] 12-18-2022 11:31-0400 Heart rate 68 /min Keven Priest MD Work Phone: [facility] [employer] 12-18-2022 11:31-0400 SaO2% (BldA) [Mass fraction] 97 % Keven Priest MD Work Phone: [facility] [employer] 12-18-2022 11:31-0400 Systolic blood pressure 165 mm[Hg] Keven Priest MD Work Phone: [facility] 11-04-2022 13:06-0400 Body height 170.2 cm Celia Al DO Work Phone: [facility] 11-04-2022 13:06-0400 Body mass index (BMI) [Ratio] 23.68 kg/m2 Celia Al DO Work Phone: [facility] 11-04-2022 13:06-0400 Body weight 68.58 kg Celia Al DO Work Phone: [facility] 11-04-2022 13:06-0400 Diastolic blood pressure 66 mm[Hg] Celia Al DO Work Phone: [facility] 11-04-2022 13:06-0400 Heart rate 74 /min Celia Al DO Work Phone: [facility] 11-04-2022 13:06-0400 Systolic blood pressure 148 mm[Hg] Celia Al DO Work Phone: [facility] 10-23-2022 13:52-0500 Body height 170.8 cm Ryan Brownomalic DO Work Phone: [facility] 10-23-2022 13:52-0500 Body mass index (BMI) [Ratio] 23.94 kg/m2 Ryan Kevinomalic DO Work Phone: [facility] 10-23-2022 13:52-0500 Body temperature 97.3 [degF] Ryan Kevinomalic DO Work Phone: [facility] 10-23-2022 13:52-0500 Body weight 69.85 kg Ryan Kevinomalic DO Work Phone: [facility] 10-23-2022 13:52-0500 Diastolic blood pressure 62 mm[Hg] Ryan Brownomalic DO Work Phone: [facility] 10-23-2022 13:52-0500 Heart rate 68 /min Ryan Brownomalic DO Work Phone: [facility] 10-23-2022 13:52-0500 SaO2% (BldA) [Mass fraction] 97 % Ryan Kevinomalic DO Work Phone: [facility] 10-23-2022 13:52-0500 Systolic blood pressure 140 mm[Hg] Ryan Kevinomalic DO Work Phone: [facility] 09-23-2022 11:13-0500 Diastolic blood pressure 60 mm[Hg] Kristy Doran APRN - WINDOWS TECHNICAL SPECIALIST Work Phone: [facility] [employer] 02-07-2023 11:13-0500 Heart rate 66 /min Kristy Doran DEWATERER OPERATOR - WINDOWS TECHNICAL SPECIALIST Work Phone: [facility] [employer] 09-23-2022 11:13-0500 Respiratory rate 16 /min Kristy Doran DEWATERER OPERATOR - WINDOWS TECHNICAL SPECIALIST Work Phone: [facility] [employer] 09-23-2022 11:13-0500 SaO2% (BldA) [Mass fraction] 97 % Kristy Doran DEWATERER OPERATOR - WINDOWS TECHNICAL SPECIALIST Work Phone: [facility] [employer] 09-23-2022 11:13-0500 Systolic blood pressure 144 mm[Hg] Kristy Doran DEWATERER OPERATOR - WINDOWS TECHNICAL SPECIALIST Work Phone: [facility] [employer] 09-23-2022 11:07-0500 Body height 170.2 cm Kristy Doran DEWATERER OPERATOR - WINDOWS TECHNICAL SPECIALIST Work Phone: [facility] [employer] 09-23-2022 11:07-0500 Body mass index (BMI) [Ratio] 24.28 kg/m2 Kristy Doran DEWATERER OPERATOR - WINDOWS TECHNICAL SPECIALIST Work Phone: [facility] [employer] 09-23-2022 11:07-0500 Body weight 70.31 kg Kristy Doran DEWATERER OPERATOR - WINDOWS TECHNICAL SPECIALIST Work Phone: [facility] [employer] 09-18-2022 13:02-0500 Body height 170.2 cm [place] [facility] 09-18-2022 13:02-0500 Body mass index (BMI) [Ratio] 24.28 kg/m2 [place] [employer] 09-18-2022 13:02-0500 Body weight 70.31 kg [place] [employer]/St[employer] [facility] 09-01-2022 15:27-0500 Body height 170.2 cm Rashi Jerome MD Work Phone: [facility] [employer] 09-01-2022 15:27-0500 Body mass index (BMI) [Ratio] 24.35 kg/m2 Rashi Jerome MD Work Phone: [facility] [employer] 09-01-2022 15:27-0500 Body weight 70.53 kg Rashi Jerome MD Work Phone: [facility] [employer] 09-01-2022 15:27-0500 Diastolic blood pressure 62 mm[Hg] Rashi Jerome MD Work Phone: [employer] 09-01-2022 15:27-0500 Heart rate 75 /min Rashi Jerome MD Work Phone: [facility] [employer] 09-01-2022 15:27-0500 Respiratory rate 16 /min Rashi Jerome MD Work Phone: [facility] [employer] 09-01-2022 15:27-0500 Systolic blood pressure 130 mm[Hg] Rashi Jerome MD Work Phone: [employer] 08-29-2022 15:23-0500 Body mass index (BMI) [Ratio] 24.19 kg/m2 Celia Al Work Phone: [employer] [facility] Work Phone: 08-29-2022 15:23-0500 Body surface area Derived from formula 1.82 m2 Celia Christi Al Work Phone: [employer] [facility] Work Phone: 08-29-2022 15:23-0500 Body weight 70.58 kg Celia Christi Al Work Phone: [employer] [facility] [employer] Work Phone: 08-29-2022 15:23-0500 Diastolic blood pressure 78 mm[Hg] Celia Al Work Phone: [employer] [facility] Work Phone: 08-29-2022 15:23-0500 Heart rate 84 /min Celia Al Work Phone: [employer] [facility] [employer] Work Phone: 08-29-2022 15:23-0500 Systolic blood pressure 166 mm[Hg] Celia Al Work Phone: [employer] [facility] Work Phone: 11-01-2021 13:04-0400 Body height 170.81 cm Celia Al Work Phone: [facility] Work Phone: 11-01-2021 13:04-0400 Body mass index (BMI) [Ratio] 27.3 kg/m2 Celia Al Work Phone: [facility] Work Phone: 11-01-2021 13:04-0400 Body surface area Derived from formula 1.92 m2 Celai Al Work Phone: [facility] Work Phone: 11-01-2021 13:04-0400 Body weight 79.65 kg Celia Al Work Phone: [facility] Work Phone: 11-01-2021 13:04-0400 Diastolic blood pressure 64 mm[Hg] Celia Al Work Phone: [facility] Work Phone: 11-01-2021 13:04-0400 Heart rate 64 /min Celia Al Work Phone: [facility] Work Phone: 11-01-2021 13:04-0400 Systolic blood pressure 152 mm[Hg] Celia Al Work Phone: [facility] Work Phone: 10-13-2020 11:21-0500 Body Temperature 97.9 [degF] Ryan Gerard -[facility] Work Phone: 10-13-2020 11:21-0500 BP Diastolic 63 mm[Hg] Ryan Gerard MP[facility] Work Phone: 10-13-2020 11:21-0500 BP Systolic 140 mm[Hg] Ryan Gerard [facility] [employer] Work Phone: 10-31-2019 15:08-0400 BMI (Body Mass Index) 28.11 kg/m2 Celia Al MP-[facility] Work Phone: 10-31-2019 15:08-0400 Body weight 82.01 kg Celia Al [facility] [employer] Work Phone: 10-31-2019 15:08-0400 BP Diastolic 58 mm[Hg] Celia Al [facility] [employer] Work Phone: 10-31-2019 15:08-0400 BP Systolic 142 mm[Hg] Celia Al [facility] Work Phone: 10-31-2019 15:08-0400 BSA (Body Surface Area) 1.94 m2 Celia Al MP-[facility] Work Phone: 10-31-2019 15:08-0400 Height 170.81 cm Celia Al [facility] Work Phone: 10-31-2019 15:08-0400 Pulse (Heart Rate) 72 /min Celia Al MP-[facility] Work Phone: 09-05-2019 13:46-0500 BMI (Body Mass Index) 27.47 kg/m2 Celia Al MP-[facility] Work Phone: 09-05-2019 13:46-0500 Body Temperature 97.2 [degF] Celia Al MP-[facility] Work Phone: 09-05-2019 13:46-0500 Body weight 80.74 kg Celia Al MP[facility] Work Phone: 09-05-2019 13:46-0500 BP Diastolic 60 mm[Hg] Celia Al MP-[facility] Work Phone: 09-05-2019 13:46-0500 BP Systolic 142 mm[Hg] Celia Al MP-[facility] Work Phone: 09-05-2019 13:46-0500 BSA (Body Surface Area) 1.93 m2 Celia Al MP-[facility] Work Phone: 09-05-2019 13:46-0500 Pulse (Heart Rate) 72 /min Celia Al MP-[facility] Work Phone: NEGATED: Highlighted [id number] 13:07-0400 BMI (Body Mass Index) 29.24 kg/m2 Clintonbernarda Bliss [facility] Work Phone: NEGATED: Highlighted [id number] 13:07-0400 BP Diastolic 77 mm[Hg] Clintonbernarda Bliss [facility] Work Phone: NEGATED: Highlighted [id number] 13:07-0400 BP Systolic 128 mm[Hg] [facility] Work Phone: NEGATED: Highlighted [id number] 13:07-0400 Height 170.18 cm Clintonbernarda Bliss [facility] Work Phone: NEGATED: Highlighted [id number] 13:07-0400 Height 170 cm Clintonbernarda Bliss [facility] Work Phone: NEGATED: Highlighted [id number] 13:07-0400 Pulse (Heart Rate) 85 /min Clinton Carrillo [facility] Work Phone: NEGATED: Highlighted [id number] 13:0400 Weight 84.37 kg Clinton Bliss [facility] Work Phone: NEGATED: Highlighted [id number] 13:0400 Weight 85 kg Clinton Bliss [facility] Orth[facility]edic [facility] Work Phone: Encounters Encounter Date Encounter Type Care Provider Facility Start: 03-10-2025 End: 03-10-2025 Admission to establishment [facility] Pre Surgical Testing Start: 03-10-2025 End: 03-10-2025 Preprocedural examination done [facility] 1 [facility] Work Phone: Start: 03-10-2025 End: 03-10-2025 ambulatory DOMINICK HUGGINS Pre Surgical Testing Comment on above: Preop examination (P rimary Dx); Spinal stenosis in cervical region; PAF (paroxysmal atrial fibrillation) ([facility]); Essential (primary) hypertension; Chronic systolic heart failure ([facility]); 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 with other specified complication, without long-term current use of insulin ([facility]); Dyslipidemia; Obstructive sleep apnea syndrome; Chronic obstructive pulmonary disease, unspecified COPD type ([facility]); Stage 3a chronic kidney disease ([facility]); Pulmonary hypertension ([facility]); Bilateral carotid artery stenosis; Iron deficiency anemia, unspecified iron deficiency anemia type; Spinal stenosis of cervical region; PVD (peripheral vascular disease) Start: 03-10-2025 End: 03-10-2025 Office outpatient visit 40 minutes Dominick Huggins MD Work Phone: [facility] Orth[facility] Comment on above: 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) Start: 03-09-2025 Encounter for other preprocedural examination DOMINICK HUGGINS [facility] Start: 03-09-2025 Preprocedural examin ation done Mirna Naik SHIFT SUPERINTENDENT [employer] Work Phone: [facility] Start: 03-09-2025 End: 03-09-2025 Telephone encounter Rashi Jerome MD Work Phone: [facility] Cardiology - [place] Comment on above: Med Management Start: 03-09-2025 End: 03-09-2025 ambulatory Mirna Naik SHIFT SUPERINTENDENT [employer] Work Phone: [facility] Physical Therapy Comment on above: Spinal stenosis of c ervical region (Primary Dx) Start: 03-08-2025 End: 03-08-2025 Patient encounter procedure Gretta WORLEY -[facility] Work Phone: Start: 03-08-2025 End: 03-08-[address] Celia Al DO Work Phone: -[facility] Start: 03-07-[address] Dai Francisco DPM -Cardiovascular Services Work Phone: Start: 03-03-2025 End: 03-03-2025 Orders Only Nickolas Pagan MD Work Phone: [facility] Start: 03-02-2025 End: 03-02-2025 Telephone encounter Dominick Huggins MD Work Phone: [facility] Start: 02-25-2025 End: 02-27-2025 Refill Rashi Jerome MD Work Phone: [facility] Cardiology - [place] Comment on above: Essential hypertensi on Start: 02-23-2025 End: 02-23-2025 Orders Only Dominick Huggins MD Work Phone: [facility] Orth[facility] Comment on above: Spinal stenosis of c ervical region (Primary Dx) Start: 02-22-2025 End: 02-22-2025 ambulatory Haley Dean PT [facility] Physical Therapy Comment on above: Spinal stenosis of c ervical region (Primary Dx) Start: 02-20-2025 End: 02-20-2025 Office outpatient visit 25 minutes Celia Al DO Work Phone: [facility] Comment on above: Cellulitis of right toe (Primary Dx) Start: 02-20-2025 End: 02-20-2025 ambulatory CELIA AL [facility] Amb[facility] Start: 02-15-2025 End: 02-15-2025 ambulatory Haley Dean PT [facility] Comment on above: Spinal stenosis of l umbar region with neurogenic claudication (Primary Dx); Spinal stenosis of cervical region Start: 02-14-2025 End: 02-14-2025 Orders Only Dominick Huggins MD Work Phone: [facility] Comment on above: Spinal stenosis in c ervical region (Primary Dx) Spinal stenosis of l umbar region with neurogenic claudication (Primary Dx) Preparations For Leesa esperanza Returning Patient's Call Refill Request Start: 02-14-2025 ambulatory DOMINICK HUGGINS Facili ty:[facility] Start: 02-14-2025 Evaluation and manag ement of inpatient DOMINICK HUGGINS Facility:[facility] Start: 02-08-2025 End: 02-08-2025 Office outpatient visit 25 minutes Dominick Huggins MD Work Phone: [facility] Comment on above: Spinal stenosis of c ervical region (Primary Dx); Spinal stenosis of lumbar region with neurogenic claudication Start: 02-08-2025 End: 02-08-2025 ambulatory DOMINICK HUGGINS [facility] Start: 02-07-2025 End: 02-07-2025 Office outpatient visit 25 minutes Celia Al DO Work Phone: [facility] Comment on above: Cellulitis of right toe (Primary Dx) Start: 02-07-2025 End: 02-07-2025 ambulatory [facility] Amb[facility] Start: 02-01-2025 End: 02-01-2025 ambulatory DOMINICK HUGGINS [facility] Start: 02-01-2025 End: 02-01-2025 Subsequent hospital visit by physician Brittaney Hi [facility] Comment on above: Spinal stenosis of c ervical region [M48.02] Spinal stenosis of l umbar region with neurogenic claudication [M48.062] Start: 01-27-2025 End: 01-27-2025 Office outpatient visit 40 minutes Celia Al DO Work Phone: [facility] Comment on above: Anemia, unspecified type (Primary Dx); Cellulitis of right toe; Lumbar stenosis with neurogenic claudication Start: 01-27-2025 End: 01-27-2025 ambulatory [facility] Ambulatory Start: 01-26-2025 End: 01-26-2025 Telephone encounter Dominick Huggins MD Work Phone: [facility] Orthopedic Comment on above: 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 Start: 01-18-2025 End: 01-18-2025 Office outpatient visit 15 minutes Dominick Huggins MD Work Phone: [facility] Orthopedics Comment on above: Lumbar stenosis with neurogenic claudication (Primary Dx); Spinal stenosis of lumbar region with neurogenic claudication; Spinal stenosis of cervical region; Elevated blood sugar Start: 01-18-2025 End: 01-18-2025 ambulatory DOMINICK HUGGINS Facility:[facility] Start: 01-18-2025 End: 01-18-2025 Subsequent hospital visit by physician Brittaney [place] [employer] [facility] Comment on above: Lumbar stenosis with neurogenic claudication [M48.062] Start: 01-17-2025 End: 01-17-2025 Emergency department patient visit Parrish Chaidez DO Work Phone: [facility] ED Comment on above: Anemia, unspecified type (Primary Dx) Start: 01-16-2025 End: 01-16-2025 Subsequent hospital visit by physician Marcia Inman CNP Work Phone: [facility] Non-Invasive Cardiology Comment on above: PAF (paroxysmal atri al fibrillation) ([facility]); Heart failure with improved ejection fraction (HFimpEF) ([facility]); Essential hypertension; Coronary artery calcification Start: 01-16-2025 End: 01-16-2025 ambulatory [facility] Start: 01-12-2025 End: 01-12-2025 Documentation procedure Mariela Stone RN [facility] Non-Invasive Cardiology Start: 12-29-2024 End: 12-29-2024 Subsequent hospital visit by physician Nickolas Pagan MD Work Phone: [facility] Pulm Function Test Comment on above: Chronic obstructive pulmonary disease, unspecified COPD type (HCC); Organizing pneumonia (CMS/HCC) (HCC); Pulmonary emphysema, unspecified emphysema type (HCC) Start: 12-29-2024 End: 12-29-2024 ambulatory [facility] Start: 12-28-2024 End: 12-28-2024 ambulatory [facility] Start: 12-28-2024 End: 12-28-2024 Office outpatient visit 25 minutes Nickolas Pagan MD Work Phone: [facility] Pulmonary - [place] Comment on above: Chronic obstructive pulmonary disease, unspecified COPD type (HCC) (Primary Dx); Organizing pneumonia (CMS/HCC) (HCC); Pulmonary emphysema, unspecified emphysema type (HCC); INGA (obstructive sleep apnea) Start: 12-23-2024 End: 12-23-2024 ambulatory [facility] Ambulatory Start: 12-22-2024 End: 12-22-2024 ambulatory HUAN CALDWELL [facility] Start: 12-22-2024 End: 12-22-2024 Telemedicine consultation with patient Huan Caldwell [facility] Work Phone: [facility] Comment on above: Atrial fibrillation, unspecified type (Multi); 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 without complication, with long-term current use of insulin; 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); SOB (shortness of breath) Start: 12-20-2024 End: 12-20-2024 Subsequent hospital visit by physician Stephanie Arana DO Work Phone: [facility] Card Pulm Rehab Comment on above: Chronic obstructive pulmonary disease, unspecified COPD type (HCC) Start: 12-20-2024 End: 12-20-2024 ambulatory [facility] Start: 12-12-2024 End: 12-12-2024 Office outpatient visit 25 minutes Rashi Jerome MD Work Phone: [facility] Cardiology - [place] Comment on above: Heart failure with i mproved ejection fraction (HFimpEF) (HCC) (Primary Dx); PAF (paroxysmal atrial fibrillation) (HCC); Dyslipidemia; Essential hypertension; Bilateral carotid artery stenosis; CKD stage G2/A3, 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/g; Weight loss Start: 12-12-2024 End: 12-12-2024 ambulatory CELIA SERVANDO [facility] Start: 12-02-2024 End: 12-06-2024 Refill Steven Stewart DO Work Phone: [facility] Cardiac Thoracic Vascular Intensive Care Unit CTV ICU T1 Start: 11-29-2024 End: 11-29-2024 Refill Kristy Doran APRN - WINDOWS TECHNICAL SPECIALIST Work Phone: [facility] Cardiology - [place] Comment on above: PAF (paroxysmal atri al fibrillation) (HCC); On continuous oral anticoagulation Start: 11-25-2024 End: 11-25-2024 Assay of hemosiderin, quant Celia Al DO Work Phone: [facility] Work Phone: Start: 11-25-2024 End: 11-25-2024 Patient encounter procedure Celia Al DO Work Phone: [facility] Comment on above: [facility] (Primary Dx); Primary hypertension; Persistent atrial fibrillation (Multi); Hypertriglyceridemia; Familial hypercholesterolemia; Heart failure with improved ejection fraction (HFimpEF); 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 with 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, without long-term current use of insulin; 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 with 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, 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; Moderate malnutrition (Multi); 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); Liver failure without hepatic coma, unspecified chronicity (Multi); Elevated LFTs; Stage 3a chronic kidney disease (Multi); S/P breast reconstruction, bilateral; BRCA1 positive; 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, unspecified estrogen receptor status; History of breast cancer; Anxiety; SOB (shortness of breath); INGA (obstructive sleep apnea); Abrasion; Routine general medical examination at health care facility; Advance directive discussed with patient [Z71.89] Start: 11-25-2024 End: 11-25-2024 Patient encounter status Celia Al DO Work Phone: [facility] Work Phone: Start: 11-25-2024 End: 11-25-2024 ambulatory [facility] Start: 11-25-2024 End: 11-25-2024 Encounter for general adult medical examination without abnormal findings [facility] Start: 11-24-2024 End: 12-22-2024 Telephone encounter Marcia Inman CNP Work Phone: [facility] Central Scheduling Comment on above: Other (Central sched uling ) Cardiac Clearance Start: 11-19-2024 End: 11-21-2024 ambulatory Christianne Morales RN [facility] Clinical Communication Start: 11-19-2024 End: 11-21-2024 Patient encounter procedure Christianne Morales RN [facility] Clinical Communication Start: 11-19-2024 End: 11-20-2024 Telephone encounter Bret Garcia MD Work Phone: [facility] Clinical Communication Comment on above: Other (Page out for Critical Labs Esthere stating paged 2x on 4.5 and never heard back ) Start: 11-18-2024 End: 11-21-2024 Telephone encounter Nickolas Pagan MD Work Phone: [facility] Lung Nodule Clinic - [place] Start: 11-18-2024 End: 11-18-2024 Transitional care manage srvc 14 day discharge Celia Gutierrez [place] DO Work Phone: [facility] Comment on above: Iron deficiency anem ia, unspecified iron deficiency anemia type (Primary Dx); 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 with hyperglycemia, unspecified whether retirement insulin use (Multi); 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); Stage 3a chronic kidney disease (Multi); Primary hypertension; 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 with 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, without long-term current use of insulin; Lymphocytosis; B12 deficiency Start: 11-18-2024 End: 11-18-2024 ambulatory [facility] Start: 11-17-2024 End: 11-18-2024 Telephone encounter Marcia Inman CNP Work Phone: [facility] Cardiology - [place] Start: 11-15-2024 End: 11-17-2024 Telephone encounter Marcia Inman CNP Work Phone: [facility] Central Scheduling Comment on above: Other (Scheduling/Au th info) Start: 11-14-2024 End: 11-14-2024 Telephone encounter Tana Hernandez LPN [facility] Clinical Communication Comment on above: Hospital Follow-up Start: 11-08-2024 End: 11-11-2024 Evaluation and management of inpatient Ned Alvarado DO Work Phone: [facility] Cardiac Progressive Care Unit PCU 2E Comment on above: Symptomatic anemia ( Primary Dx); Chronic anticoagulation; Organizing pneumonia (CMS/HCC) (HCC); Liver failure without hepatic coma, unspecified chronicity (HCC); Cardiogenic shock (HCC) Start: 11-07-2024 End: 11-08-2024 Orders Only Marcia Inman CNP Work Phone: [facility] Cardiology - [place] Start: 11-07-2024 End: 11-07-2024 Telephone encounter Jaqueline Monroe PharmD [facility] Cardiology - [place] Comment on above: Med Management Start: 11-07-2024 End: 11-07-2024 ambulatory CELIA Hello Agent [facility] Start: 11-07-2024 End: 11-07-2024 Office outpatient visit 25 minutes Marcia Inman CNP Work Phone: [facility] [employer] [place] Comment on above: CRUZ (dyspnea on exer tion) (Primary Dx); 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); PAF (paroxysmal atrial fibrillation) (HCC); Essential hypertension; Bilateral carotid artery stenosis; Dyslipidemia; Obstructive sleep apnea syndrome Start: 10-28-2024 End: 10-28-2024 ambulatory CELIA Hello Agent [facility] Start: 10-28-2024 End: 10-28-2024 Office outpatient visit 25 minutes Stephanie Arana DO Work Phone: [facility] Lung Nodule Clinic [place] Comment on above: Organizing pneumonia (CMS/HCC) (HCC) (Primary Dx); Chronic obstructive pulmonary disease, unspecified COPD type (HCC); INGA (obstructive sleep apnea); History of tobacco use Start: 10-27-2024 End: 12-02-2024 Telephone encounter Rashi Jerome MD Work Phone: [facility] [place] Comment on above: Prior Authorization Start: 10-21-2024 End: 10-21-2024 Emergency department patient visit Parrish Chaidez DO Work Phone: [facility] ED Comment on above: Urinary tract infect ion without hematuria, site unspecified (Primary Dx) Start: 10-21-2024 End: 10-21-2024 ambulatory [facility] Start: 10-21-2024 End: 10-21-2024 Office outpatient visit 25 minutes Celia Al DO Work Phone: [facility] Comment on above: Weakness (Primary Dx ); Pain in buttock; PVD (peripheral vascular disease) ([facility]-HCC) Start: 10-19-2024 End: 10-19-2024 Subsequent hospital visit by physician Stephanie Arana DO Work Phone: [facility] CT Imaging Comment on above: Organizing pneumonia ([facility]) ([facility]) Start: 10-19-2024 End: 10-19-2024 ambulatory [facility] Start: 10-14-2024 End: 10-14-2024 ambulatory [facility] Start: 10-12-2024 End: 10-12-2024 Subsequent hospital visit by physician Bharathi Dewey60b X-Ray 1 [facility] Comment on above: Acute bronchitis, un specified organism Start: 10-12-2024 End: 10-12-2024 ambulatory [facility] Start: 10-05-2024 End: 10-05-2024 Refill Rashi Jerome MD Work Phone: [facility] [place] Start: 10-03-2024 End: 10-03-2024 Office outpatient visit 25 minutes Celia Al DO Work Phone: [facility] Comment on above: Acute bronchitis, un specified organism (Primary Dx) Start: 10-03-2024 End: 10-03-2024 ambulatory [facility] Start: 09-19-2024 End: 09-19-2024 Telephone encounter Rashi Jerome MD Work Phone: [facility] [place] Comment on above: Results (Labs and ho ld Lasix 2 days) Start: 09-16-2024 End: 09-19-2024 Telephone encounter Marcia Correa APRN - WINDOWS TECHNICAL SPECIALIST Work Phone: [facility] [place] Comment on above: Prior Authorization (NM stress test) Start: 09-16-2024 End: 09-16-2024 Office outpatient visit 25 minutes Marcia Correa APRN - [place] Work Phone: [facility] [place] Comment on above: PAF (paroxysmal atri al fibrillation) (HCC) (Primary Dx); 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); Essential hypertension; Bilateral carotid artery stenosis; Dyslipidemia; Obstructive sleep apnea syndrome; Coronary artery calcification Start: 09-16-2024 End: 09-16-2024 ambulatory [facility] Start: 09-09-2024 End: 09-09-2024 ambulatory [facility] Start: 09-09-2024 End: 09-09-2024 Transitional care manage srvc 14 day discharge [facility] DO Work Phone: [facility] Comment on above: Acute on chronic hea rt failure with preserved ejection fraction (HFpEF) (Primary Dx); Chronic bilateral pleural effusions; 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 with hyperglycemia, 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); B12 deficiency Start: 09-08-2024 End: 09-08-2024 Telephone encounter Stephanie Arana DO Work Phone: [facility] Lung Nodule [facility] - [place] Comment on above: Care Coordination Start: 09-07-2024 End: 09-07-2024 Office outpatient visit 25 minutes Stephanie Arana DO Work Phone: [facility] Pulmonary - [place] Comment on above: Pleural effusion (Pr imary Dx); Organizing pneumonia (CMS/HCC) (HCC); Pulmonary nodules Start: 09-07-2024 End: 09-07-2024 ambulatory [facility] Start: 08-30-2024 End: 08-30-2024 Telephone encounter Tana Hernandez LPN [facility] Clinical Communication Comment on above: Hospital Follow-up Start: 08-29-2024 End: 08-30-2024 Telephone encounter Karime Marie RN [facility]odule [facility] - [place] Comment on above: Care Coordination (E D Nuance Lung Nodule ) Start: 08-26-2024 End: 08-29-2024 Evaluation and management of inpatient Leticia Landa MD Work Phone: [facility] Cardiac Progressive Care Unit PCU 2E Comment on above: Exertional shortness of breath (Primary Dx) Start: 08-26-2024 End: 08-26-2024 ambulatory [facility] Start: 08-26-2024 End: 08-26-2024 Office outpatient visit 40 minutes Celia Al DO Work Phone: [facility] Comment on above: Chest pain, unspecif ied type (Primary Dx); Dyspnea, unspecified type; Persistent atrial fibrillation (Multi); 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); SOB (shortness of breath); Stage 3a chronic kidney disease (Multi); Acute heart failure, unspecified heart failure type; Malignant neoplasm of left breast in female, estrogen receptor negative, unspecified site of breast Start: 08-19-2024 End: 08-19-2024 Office outpatient visit 25 minutes Stephanie Arana DO Work Phone: [facility] Lung Nodule [facility] - [place] Comment on above: Organizing pneumonia (CMS/HCC) (HCC) (Primary Dx); Pleural effusion; Pulmonary nodules; Asthma-COPD overlap syndrome (HCC); Tobacco use Start: 08-19-2024 End: 08-19-2024 ambulatory [facility] Start: 08-08-2024 End: 08-08-2024 Refill Kristy Doran APRN - WINDOWS TECHNICAL SPECIALIST Work Phone: [facility] Start: 08-02-2024 End: 08-02-2024 Telephone encounter Stephanie Arana DO Work Phone: [facility] Lung Nodule Clinic - [employer] Comment on above: Results PAF (paroxysmal atri al fibrillation) (HCC); On continuous oral anticoagulation Start: 08-02-2024 End: 08-02-[address] [facility] Start: 08-01-2024 End: 08-01-2024 Office outpatient visit 25 minutes Meet Lisbeth Leigh MD Work Phone: [facility] Cardiology - [employer] Comment on above: Persistent atrial fi brillation (HCC) (Primary Dx); 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); Essential hypertension Start: 08-01-2024 End: 08-01-2024 [facility] Start: 07-27-2024 End: 07-27-2024 Subsequent hospital visit by physician Stephanie Arana DO Work Phone: [facility] CT Imaging Comment on above: Organizing pneumonia (CMS/HCC) (HCC); Pulmonary infiltrates; Pulmonary nodules Start: 07-27-2024 End: 07-27-2024 [facility] Start: 07-25-2024 End: 07-25-2024 Telephone encounter Stephanie Arana DO Work Phone: [facility] Lung Nodule Clinic - [employer] Comment on above: Other (DME Order via [facility] Start: 07-25-2024 End: 07-25-2024 Subsequent hospital visit by physician Gi Inman CNP Work Phone: [facility] Non-Invasive Cardiology Comment on above: Persistent atrial fi brillation (HCC); 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); Essential hypertension Start: 07-25-2024 End: 07-25-2024 [facility] Start: 07-20-2024 End: 07-20-2024 [facility] Start: 07-20-2024 End: 07-20-2024 Subsequent hospital visit by physician Stephanie Arana DO Work Phone: [facility] X-ray Imaging Comment on above: Aspiration into airw ay, initial encounter Start: 07-07-2024 End: 07-07-2024 ambulatory [facility] Start: 07-07-2024 End: 07-07-2024 Office outpatient visit 15 minutes Stephanie Arana DO Work Phone: [facility] Lung Nodule [facility] - [place] Comment on above: INGA (obstructive sle ep apnea) (Primary Dx); Aspiration into airway, initial encounter Start: 06-18-2024 End: 06-19-2024 ambulatory Kristy Doran DEWATERER OPERATOR - WINDOWS TECHNICAL SPECIALIST Work Phone: [facility] Sleep Lab Comment on above: INGA (obstructive sle ep apnea) Start: 06-13-2024 End: 06-13-[address] [facility] Start: 06-07-2024 End: 06-07-2024 Office outpatient visit 25 minutes Stephanie Arana DO Work Phone: [facility] Lung Nodule Clinic - [employer] Comment on above: Organizing pneumonia (CMS/HCC) (HCC) (Primary Dx); Pulmonary infiltrates; Pulmonary nodules; Chronic obstructive pulmonary disease, unspecified COPD type (HCC); History of tobacco use Start: 06-07-2024 End: 06-07-2024 [facility] Start: 06-01-2024 End: 06-01-2024 Telephone encounter Meet Lisbeth Leigh MD Work Phone: [facility] Cardiology - [place] Comment on above: Other (Bp ) Start: 06-01-2024 End: 06-01-2024 Office outpatient visit 25 minutes Gi Mendoza DEWATERER OPERATOR - WINDOWS TECHNICAL SPECIALIST Work Phone: [facility] Comment on above: Persistent atrial fi brillation (HCC) (Primary Dx); 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); Essential hypertension Start: 06-01-2024 End: 06-01-2024 ambulatory [facility] Start: 05-27-2024 End: 05-27-2024 Subsequent hospital visit by physician Stephanie Arana DO Work Phone: [facility] CT Imaging Comment on above: Organizing pneumonia (CMS/HCC) (HCC); History of tobacco use; Pulmonary nodules Start: 05-27-2024 End: 05-27-2024 ambulatory [facility] Start: 05-15-2024 End: 05-15-2024 Telephone encounter Sathish Whitaker [facility] Cardiology - [place] Start: 05-12-2024 End: 05-12-2024 Telephone encounter Meet Lisbeth Leigh MD Work Phone: [facility] Comment on above: Other (Knot at ablat ion site) Start: 05-09-2024 End: 05-09-2024 Telephone encounter Meet Lisbeth Leigh MD Work Phone: [facility] Comment on above: Other Start: 05-06-2024 End: 05-06-2024 Telephone encounter Meet Lisbeth Leigh MD Work Phone: [facility] Comment on above: Other (Post procedur e symptoms ) Start: 05-05-2024 End: 05-05-2024 ambulatory [facility] Start: 05-05-2024 End: 05-05-2024 Subsequent hospital visit by physician Walt Leigh MD Work Phone: [facility] Comment on above: Persistent atrial fi brillation (HCC) Start: 05-02-2024 End: 05-02-2024 ambulatory [facility] Start: 05-02-2024 End: 05-02-2024 ambulatory [facility] Start: 05-02-2024 End: 05-02-2024 Subsequent hospital visit by physician Rashi Jerome MD Work Phone: [facility] Vascular Lab Comment on above: Bilateral carotid ar leela stenosis Start: 04-29-2024 End: 04-29-2024 ambulatory Kristy Doran DEWATERER OPERATOR - WINDOWS TECHNICAL SPECIALIST Work Phone: [facility] SLEEP LAB Comment on above: PAF (paroxysmal atri al fibrillation) (HCC); Chronic systolic heart failure (HCC); INGA (obstructive sleep apnea) Start: 04-19-2024 End: 04-19-2024 ambulatory [facility] Start: 04-15-2024 End: 05-04-2024 Telephone encounter Meet Lisbeth Leigh MD Work Phone: [facility] Cardiology - [place] Comment on above: Procedure (Instructi ons for PVI Ablation) Start: 04-15-2024 End: 04-15-2024 Office outpatient new 60 minutes Meet Lisbeth Leigh MD Work Phone: [facility] Cardiology Comment on above: PAF (paroxysmal atri al fibrillation) (HCC) (Primary Dx) Start: 04-15-2024 End: 04-15-2024 ambulatory Gi Mendoza DEWATERER OPERATOR - WINDOWS TECHNICAL SPECIALIST Work Phone: [facility] Cardiology Comment on above: Persistent atrial fi brillation (HCC) (Primary Dx) Start: 04-01-2024 End: 04-01-2024 Refill Rashi Jerome MD Work Phone: [facility] Cardiology Comment on above: Dyslipidemia Start: 03-31-2024 End: 03-31-2024 ambulatory [facility] Start: 03-25-2024 End: 03-25-2024 Refill Kristy Doran DEWATERER OPERATOR - WINDOWS TECHNICAL SPECIALIST Work Phone: [facility] Cardiology Start: 03-11-2024 End: 03-11-2024 ambulatory [facility] Start: 03-11-2024 End: 03-11-2024 Office outpatient visit 15 minutes Stephanie Arana DO Work Phone: [facility] Pulmonary Care Comment on above: Pulmonary nodules (P rimary Dx); Organizing pneumonia (CMS/HCC) (HCC); History of tobacco use; Chronic obstructive pulmonary disease, unspecified COPD type (HCC) Start: 03-10-2024 End: 03-10-2024 ambulatory [facility] Start: 03-07-2024 End: 03-07-2024 ambulatory [facility] Start: 03-04-2024 End: 03-04-2024 Telephone encounter Kristy Doran DEWATERER OPERATOR - WINDOWS TECHNICAL SPECIALIST Work Phone: [facility] Cardiology Comment on above: Other (Message ) Start: 02-26-2024 End: 02-26-2024 Telephone encounter Kristy Doran DEWATERER OPERATOR - WINDOWS TECHNICAL SPECIALIST Work Phone: [facility] Cardiology Comment on above: Other (message) Start: 02-24-2024 End: 02-24-2024 Subsequent hospital visit by physician Stephanie Arana DO Work Phone: [facility] CT Imaging Comment on above: Pulmonary nodules Start: 02-22-2024 End: 02-22-2024 Refill Kristy Doran DEWATERER OPERATOR - WINDOWS TECHNICAL SPECIALIST Work Phone: [facility] Cardiology Start: 02-15-2024 End: 02-15-2024 Office outpatient visit 25 minutes Kristy Doran DEWATERER OPERATOR - WINDOWS TECHNICAL SPECIALIST Work Phone: [facility] Cardiology Comment on above: PAF (paroxysmal atri al fibrillation) (HCC) (Primary Dx); On continuous oral anticoagulation; On amiodarone therapy; Chronic systolic heart failure (HCC); Elevated LFTs; Essential hypertension; Bilateral carotid artery stenosis; Dyslipidemia; CKD stage G2/A3, 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/g; Obstructive sleep apnea syndrome Start: 02-09-2024 End: 02-09-2024 Clinical Support [facility] [place] [place] Cardiology Pw Nurse/Ma [facility] Cardiology Comment on above: PAF (paroxysmal atri al fibrillation) (HCC) Start: 02-08-2024 End: 02-08-2024 Telephone encounter Kristy Doran DEWATERER OPERATOR - WINDOWS TECHNICAL SPECIALIST Work Phone: [facility] Card[facility] Start: 02-05-2024 End: 02-16-2024 Refill Martha Horton MD Work Phone: [facility] Cardiology Comment on above: Chronic systolic hea rt failure (HCC) Start: 02-04-2024 End: 02-08-2024 Telephone encounter Kristy Doran DEWATERER OPERATOR - WINDOWS TECHNICAL SPECIALIST Work Phone: [facility] Cardiology Comment on above: OTHER Start: 02-03-2024 End: 02-03-2024 ambulatory Maite Altamirano DEWATERER OPERATOR - WINDOWS TECHNICAL SPECIALIST Work Phone: [facility] Card[facility] Start: 02-03-2024 End: 02-03-2024 Transitional care manage srvc 14 day discharge Celia Al DO Work Phone: [facility] Comment on above: HFrEF (heart failure with reduced ejection fraction) (Multi) (Primary Dx); Atrial fibrillation with RVR (Multi); Sialadenitis; Elevated liver enzymes Start: 02-02-2024 End: 02-03-2024 Refill Stephanie Arana DO Work Phone: [facility] Pulmonary Care Comment on above: Procedure (Schedule DCC) Kidney disease due t o secondary diabetes mellitus (Multi) (Primary Dx); Atrial fibrillation, unspecified type (Multi); 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 without complication, with long-term current use of insulin (Multi); SOB (shortness of breath) Start: 02-01-2024 End: 02-01-2024 Refill Rashi Jerome MD Work Phone: [facility] Comment on above: Sample Request Start: 02-01-2024 End: 02-01-2024 Office outpatient visit 25 minutes Kristy Doran DEWATERER OPERATOR - WINDOWS TECHNICAL SPECIALIST Work Phone: [facility] Card[facility] Comment on above: PAF (paroxysmal atri al fibrillation) (HCC) (Primary Dx); On continuous oral anticoagulation; On amiodarone therapy; Elevated LFTs; Chronic systolic heart failure (HCC); Essential hypertension; Bilateral carotid artery stenosis; Dyslipidemia; CKD stage G2/A3, 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/g; INGA (obstructive sleep apnea); Obstructive sleep apnea syndrome Start: 01-27-2024 End: 01-27-2024 ambulatory CELIA AL [facility] Start: 01-19-2024 End: 01-22-2024 Evaluation and management of inpatient Sandrine Harris DO Work Phone: [facility] Cardiac Thoracic Vascular Intensive Care Unit CTV ICU T1 Comment on above: Atrial fibrillation with RVR (HCC) (Primary Dx); Acute heart failure, unspecified heart failure type (HCC) Start: 01-19-2024 End: 01-19-2024 Office outpatient visit 40 minutes Celia Al DO Work Phone: [facility] Comment on above: Submandibular swelli ng (Primary Dx); Right lower quadrant pain; Dyspnea, unspecified type Start: 01-08-2024 Telephone encounter Stephanie Arana DO Work Phone: [facility] Pulmonary and Sleep Medicine Comment on above: Med Refill Start: 01-08-2024 End: 01-08-2024 Subsequent hospital visit by physician Bharathi Teague X-Ray 1 [facility] Comment on above: Left ankle swelling Start: 01-08-2024 End: 01-08-2024 ambulatory [facility] Start: 01-08-2024 End: 01-08-2024 Office outpatient visit 15 minutes Jerel Fraser DO Work Phone: [facility] Comment on above: Left ankle swelling (Primary Dx); 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 with 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, without long-term current use of insulin (Multi); Primary hypertension Start: 12-11-2023 Telephone encounter Karime Gutierrez [facility] Comment on above: Care Coordination Start: 12-08-2023 Orders Only Stephanie Arana DO Work Phone: [facility] Comment on above: Pulmonary nodules (P rimary Dx) Start: 12-04-2023 Telephone encounter Stephanie Arana DO Work Phone: [facility] Start: 12-04-2023 End: 12-04-2023 Office outpatient visit 25 minutes Stephanie Arana DO Work Phone: [facility] Comment on above: Organizing pneumonia (CMS/HCC) (HCC) (Primary Dx); Pulmonary emphysema, unspecified emphysema type (HCC); History of tobacco use Start: 11-25-2023 End: 11-25-2023 Subsequent hospital visit by physician Stephanie Arana DO Work Phone: [facility] CT Imaging Comment on above: Organizing pneumonia (CMS/HCC) (HCC); Pulmonary nodules Start: 10-30-2023 Telephone encounter Stephanie GonzalezChavez DO Work Phone: [facility] Comment on above: Results Start: 10-29-2023 End: 10-29-2023 Subsequent hospital visit by physician Stephanie Arana DO Work Phone: [facility] Pulm Function Test Comment on above: Tobacco use; CRUZ (dyspnea on exertion) Start: 10-16-2023 End: 10-16-2023 Office outpatient visit 25 minutes Celia Al DO Work Phone: [facility] Comment on above: Organized pneumonia (CMS/HCC) (Primary Dx); 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 without complication, with long-term current use of insulin (CMS/HCC); Lung nodule seen on imaging study; Abnormal weight loss Start: 10-13-2023 End: 10-13-2023 Office outpatient visit 25 minutes Stephanie Arana DO Work Phone: [facility] Sleep Medicine Comment on above: Organizing pneumonia (CMS/HCC) (HCC) (Primary Dx); CRUZ (dyspnea on exertion); History of tobacco use; Pulmonary nodules Start: 10-05-2023 End: 10-06-2023 Evaluation and management of inpatient Stephanie Arana DO Work Phone: [facility] Medical Surgical Unit MSU 1E Comment on above: Pneumothorax (Primar y Dx); Lung nodule; Other nonspecific abnormal finding of lung field Start: 10-01-2023 End: 10-01-2023 Office outpatient visit 25 minutes Jerel Fraser DO Work Phone: [facility] Comment on above: Acute maxillary sinu sitis, recurrence not specified (Primary Dx); Primary hypertension Start: 09-29-2023 Telephone encounter Stephanie Arana DO Work Phone: [facility] Comment on above: Care Coordination Patient Update (Futu re surgery) Start: 09-29-2023 End: 09-29-2023 Office outpatient new 45 minutes Stephanie BhatiaStormChavez DO Work Phone: [facility] Comment on above: Lung nodules (Primar y Dx); Tobacco use; Malignant neoplasm of left breast in female, estrogen receptor negative, unspecified site of breast (HCC) (HCC); CRUZ (dyspnea on exertion); INGA (obstructive sleep apnea) Start: 09-25-2023 Telephone encounter Stephanie BhatiaStormChavez DO Work Phone: [facility] Start: 09-25-2023 End: 09-25-2023 Office outpatient visit 25 minutes Keven Marcus MD Work Phone: [facility] Comment on above: Malignant neoplasm o f left breast in female, estrogen receptor negative, unspecified site of breast (HCC) (HCC) (Primary Dx); Lung nodules Start: 09-19-2023 Refill Rashi juan MD Work Phone: [facility] Card[facility] Start: 09-17-2023 End: 09-17-2023 Subsequent hospital visit by physician Keven Marcus MD Work Phone: [facility] Comment on above: Malignant neoplasm o f left breast in female, estrogen receptor negative, unspecified site of breast (HCC) (HCC); Lung nodules Start: 09-03-2023 ambulatory [facility] Facility: [id number] Start: 08-28-2023 End: 08-28-2023 Office outpatient visit 25 minutes Celia Al DO Work Phone: [facility] Comment on above: Type 2 diabetes carlos alberto itus without complication, with long-term current use of insulin (CMS/HCC) (Primary Dx) Start: 08-26-2023 End: 08-26-2023 Office outpatient visit 25 minutes Keven Marcus MD Work Phone: [facility] Comment on above: Malignant neoplasm o f left breast in female, estrogen receptor negative, unspecified site of breast (HCC) (Primary Dx); Lung nodules Start: 08-24-2023 End: 08-24-2023 Subsequent hospital visit by physician Keven Marcus MD Work Phone: [facility] CT Imaging Comment on above: Malignant neoplasm o f left breast in female, estrogen receptor negative, unspecified site of breast (HCC) Start: 06-12-2023 End: 06-12-2023 Office outpatient visit 25 minutes Celia Al DO Work Phone: [facility] Comment on above: Sciatica of right si de (Primary Dx); Acute non-recurrent frontal sinusitis Start: 05-07-2023 End: 05-07-2023 Office outpatient visit 25 minutes Rashi Jerome MD Work Phone: [facility] Cardiology Comment on above: Bilateral carotid ar leela stenosis (Primary Dx); Essential hypertension; Dyslipidemia; CKD stage G2/A3, 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/g Start: 04-22-2023 End: 04-22-2023 Office outpatient visit 15 minutes Keven Marcus MD Work Phone: [facility] Comment on above: Malignant neoplasm o f left breast in female, estrogen receptor negative, unspecified site of breast (HCC) (Primary Dx) Start: 04-17-2023 End: 04-17-2023 Subsequent hospital visit by physician Keven Marcus MD Work Phone: [facility] CT Imaging Comment on above: Malignant neoplasm o f left breast in female, estrogen receptor negative, unspecified site of breast (HCC) Start: 04-01-2023 Refill Rashi juan MD Work Phone: [facility] Cardiology Start: 03-23-2023 End: 03-23-2023 Subsequent hospital visit by physician Kristy Inman CNP Work Phone: [facility] Vascular Lab Comment on above: Bilateral carotid ar leela stenosis Start: 02-05-2023 Telephone encounter Rashi Jerome MD Work Phone: [facility] Cardiology Comment on above: Cardiac Clearance Start: 01-16-2023 Refill Rashi juan MD Work Phone: [facility] Start: 12-18-2022 End: 12-18-2022 Office outpatient visit 15 minutes Keven Marcus MD Work Phone: [facility] Comment on above: Malignant neoplasm o f left breast in female, estrogen receptor negative, unspecified site of breast (HCC) (Primary Dx) Start: 12-15-2022 End: 12-15-2022 Subsequent hospital visit by physician Keven Marcus MD Work Phone: [facility] Nuclear Medicine Comment on above: Malignant neoplasm o f left breast in female, estrogen receptor negative, unspecified site of breast (HCC); 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; Weight loss Start: 12-12-2022 End: 12-12-2022 Telemedicine consultation with patient Sarah Borjas John HarleyD Work Phone: [facility] Comment on above: Type 2 diabetes carlos alberto itus with 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, without long-term current use of insulin (CMS/HCC) Start: 11-14-2022 [id number] Start: 11-04-[address] 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, unspecified estrogen receptor status (CMS/HCC); 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 with 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, without long-term current use of insulin ([facility]) Start: 11-04-2022 End: 11-04-2022 Patient encounter status Celia Gutierrez Servando DO Work Phone: [facility] Work Phone: Start: 10-23-2022 End: 10-23-2022 Office outpatient visit 15 minutes Ryan Gerard DO Work Phone: [facility] Comment on above: Shoulder impingement syndrome, right (Primary Dx) Start: 10-17-2022 Chart Update Celia Al Work Phone[facility] Work Phone: Start: 09-23-2022 Telephone encounter Kristy Doran [employer] Work Phone: [employer] Comment on above: Labs Only Start: 09-23-2022 End: 09-23-2022 Office outpatient visit 25 minutes Kristy Doran DEWATERER OPERATOR Co-Work Work Phone: [employer] [facility] Comment on above: Syncope and collapse (Primary Dx); Palpitations; Essential hypertension; Bilateral carotid artery stenosis; Dyslipidemia; History of COVID-19; Orthostatic hypotension Start: 09-18-2022 End: 09-18-2022 Subsequent hospital visit by physician Radha Ivy Echo/Stress [facility] Comment on above: Syncope and collapse ; Palpitations; Essential hypertension Start: 09-05-2022 Chart Update Celia Al Work Phone: [facility] Work Phone: Start: 09-03-2022 Chart Update Celia Al Work Phone: [facility] Work Phone: Start: 09-01-2022 End: 09-01-2022 Office outpatient visit 25 minutes Rashi Jerome MD Work Phone: [employer] [facility] Comment on above: Syncope and collapse (Primary Dx); Palpitations; Essential hypertension; Bilateral carotid artery stenosis; Dyslipidemia; History of COVID-19 Start: 09-01-2022 Chart Update Celia Al Work Phone: [employer] Work Phone: Start: 08-29-[address] Celia Al Facility:[id number] Start: 08-29-2022 Office outpatient vi sit 25 minutes Celia Al Work Phone: [employer] [facility] Work Phone: Start: 08-29-2022 ambulatory Carmen Licona Facility :[id number] Start: 08-29-[address] Bishnu Sharma Facility:[facility] Start: 08-02-2022 Office outpatient vi sit 15 minutes Celia Al Work Phone: [employer] [facility] Work Phone: Start: 08-02-2022 ambulatory DO JEREL FRASER Facility:[id number] Start: 07-14-2022 Office outpatient vi sit 25 minutes Celia Al Work Phone: [employer] Work Phone: Start: 07-14-2022 ambulatory Carmenyasmin Figueroadelmischely Facility :[id number] Start: 07-08-2022 AUDIT Celia Al Work Phone: [employer] Work Phone: Start: 05-06-2022 ambulatory Celia Al [facility] Start: 05-06-2022 End: 05-06-2022 Subsequent hospital visit by physician Rashi Jerome MD Work Phone: [facility] Vascular Lab Comment on above: Occlusion and stenos is of bilateral carotid arteries; Bilateral carotid artery stenosis Start: 04-05-2022 Office outpatient vi sit 15 minutes Celia Al Work Phone: [employer] Work Phone: Start: 04-05-2022 ambulatory DO RYAN Bob KROMALIC Facility:[id number] Start: 02-25-2022 Telephone encounter Celia cordova Work Phone: [facility] [address] [place] Work Phone: Start: 01-07-2022 AUDIT Celia Al Work Phone: [facility] Work Phone: Start: 12-25-2021 End: 12-25-2021 Subsequent hospital visit by physician Jhoan Livingston MD Work Phone: [facility]TRAS[facility] Comment on above: Arrived Start: 12-23-2021 AUDIT Celia Al Work Phone: [facility] [address] [place] Work Phone: Start: 11-29-2021 Office outpatient vi sit 25 minutes Celia Al Work Phone: [facility] Work Phone: Start: 11-08-2021 Chart Update Celia Al Work Phone: [facility] Work Phone: Start: 11-06-2021 Telephone encounter Celia cordova Work Phone: [facility] [address] [place] Work Phone: Start: 11-01-2021 Patient encounter procedure Celia Al Work Phone: [facility] Work Phone: Start: 10-30-2021 Chart Update Celia Al Work Phone: [facility] Work Phone: Start: 10-29-2021 Chart Update Celia Al Work Phone: [facility] Work Phone: Start: 10-22-2021 AUDIT Celia Al Work Phone: -[facility] Work Phone: Start: 10-03-2021 Telephone encounter Celia N Lamar cordova Work Phone: [facility] [address] [place] Work Phone: Start: 09-04-2021 AUDIT Celia Al Work Phone: [facility] Work Phone: Start: 08-20-2021 Patient encounter procedure Celia Al Work Phone: [facility] [address] [place] Work Phone: Start: 08-19-2021 AUDIT Celia Al Work Phone: [facility] [address] [place] Work Phone: Start: 07-03-2021 AUDIT Celia Al Work Phone: [facility] Work Phone: Start: 05-23-2021 Patient encounter procedure Shavon Kerr MD Work Phone: [facility] Start: 05-23-2021 Progress Note Shavon gleason MD Work Phone: [facility] Start: 04-29-2021 End: 04-29-2021 Subsequent hospital visit by physician Rashi Jerome MD Work Phone: [facility] Vascular Lab Comment on above: Occlusion and stenos is of bilateral carotid arteries; Bilateral carotid artery stenosis Start: 03-29-2021 AUDIT Celia Al Work Phone: [facility] Work Phone: Start: 03-20-2021 Office outpatient vi sit 25 minutes Celia Al Work Phone: [facility] Work Phone: Start: 11-05-2020 Patient encounter procedure Celia Al DO [facility] Work Phone: Start: 10-31-2020 Patient encounter procedure Celia Al DO [facility] Work Phone: Start: 10-13-2020 Patient encounter procedure Ryan Gerard [facility] Work Phone: Start: 05-28-2020 Patient encounter procedure Ryan Gerard [facility] Work Phone: Start: 04-27-2020 End: 04-27-2020 Subsequent hospital visit by physician Rashi Jerome Work Phone: [facility] Comment on above: Occlusion and stenos is of left carotid artery; Cardiac murmur, unspecified; Newly recognized heart murmur; Carotid stenosis, left Start: 10-31-2019 Patient encounter procedure Celia Al [facility] Work Phone: Start: 09-05-2019 Patient encounter procedure Celia Al [facility] Work Phone: Start: 05-25-2019 Nursing evaluation o f patient and report Celia Al [facility] Work Phone: Start: 10-27-2018 Patient encounter procedure Celia Al [facility] Work Phone: Start: 08-16-2018 Patient encounter procedure Celia Al [facility] Work Phone: Start: 06-24-2018 Patient encounter procedure Celia Al [facility] Work Phone: Start: 06-17-2018 Patient encounter procedure Celia Al [facility] Work Phone: Start: 03-04-2018 End: 03-05-2018 Patient encounter procedure Elis Wang DEWATERER OPERATOR-WINDOWS TECHNICAL SPECIALIST Work Phone: [facility] Work Phone: Start: 02-22-2018 Patient encounter procedure Celia Al [facility] Work Phone: Start: 01-04-2018 Patient encounter procedure Celia Al [facility] Work Phone: Start: 12-16-2017 Patient encounter procedure Celia Al [facility] Work Phone: Start: 12-12-2017 Patient encounter procedure Celia Al [facility] Work Phone: Start: 10-23-2017 Patient encounter procedure Celia Al [facility] Work Phone: Start: 10-20-2017 Patient encounter procedure Celia Al [facility] Work Phone: Start: 09-21-2008 End: 09-21-2008 Patient encounter procedure Mandy Rodríguez Work Phone: [facility] Start: 09-21-2008 Results Only Mandy shah Work Phone: [facility] Start: 10-20-2001 End: 10-20-2001 Patient encounter procedure Fay Cassidy Work Phone: [facility] Start: 10-20-2001 Results Only Fay Cassidy Work Phone: [facility] Procedures Date Procedure Procedure Detail Performing Clinician Start: 03-10-2025 Antibody screen DOMINICK MANCIA Comment on above: Order Comment: Speci men Type: BLOOD SPECIMENOrdering Facility: [facility] Address: [address] [place] [id number] Performed By: #### T [id number] ####[facility] BLOOD BANKCLIA [id number] [place] [address] [place] Start: 01-17-2025 Blood count hematocrit Mejgon Z Kaylynn DO Work Phone: Start: 01-17-2025 Blood typing serologic abo Parrish Chaidez DO Work Phone: Start: 01-17-2025 End: 01-17-2025 TRANSFUSE RED BLOOD CELLS Parrish Chaidez DO Work Phone: Start: 01-17-2025 End: 01-17-2025 TRANSFUSE RED BLOOD CELLS Parrish Chaidez DO Work Phone: Start: 01-17-2025 Antibody screen CELIA AL Comment on above: Performed By: #### L [id number] ####Nut Feeder: DARELL MCGUIRE ([phone])[facility] BLOOD [facility] ([facility])[id number] Start: 01-17-2025 Blood count complete automated Parrish Chaidez DO Work Phone: Start: 01-17-2025 Blood typing serologic abo Parrish Chaidez DO Work Phone: Start: 01-16-2025 Myocardial spect mul tiple studies Marcia Correa DEWATERER OPERATOR - WINDOWS TECHNICAL SPECIALIST Work Phone: Start: 12-29-2024 Brncdilat rspse spmt ry pre&post-brncdilat admn Nickolas Pagan MD Work Phone: Start: 12-28-2024 Follow-up visit CELIA AL Start: 12-12-2024 Ecg routine ecg w/le ast 12 lds w/i&r Rashi Jerome MD Work Phone: Start: 12-12-2024 Follow-up visit CELIA AL Start: 11-18-2024 Urnls dip stick/tabl et rgnt auto w/o microscopy Celia Al DO Work Phone: Start: 11-16-2024 Lipid 1996 panel - S ana paula or Plasma Celia Al DO Work Phone: Start: 11-11-2024 Glucose quantitative blood xcpt reagent strip Nel Toledo MD Work Phone: Start: 11-11-2024 Glucose quantitative blood xcpt reagent strip Nel Toledo MD Work Phone: Start: 11-11-2024 Basic metabolic pane l calcium total Beti M Bernal DEWATERER OPERATOR - WINDOWS TECHNICAL SPECIALIST Work Phone: Start: 11-10-2024 Glucose quantitative blood xcpt reagent strip Nel Toledo MD Work Phone: Start: 11-10-2024 Glucose quantitative blood xcpt reagent strip Nel Toledo MD Work Phone: Start: 11-10-2024 Glucose quantitative blood xcpt reagent strip Nel Toledo MD Work Phone: Start: 11-10-2024 End: 11-10-2024 ESOPHAGOGASTRODUODENOSCOPY, DIAGNOSTIC Stan Jama DO Work Phone: Start: 11-10-2024 Blood count hematocrit Beti M Bernal DEWATERER OPERATOR - WINDOWS TECHNICAL SPECIALIST Work Phone: Start: 11-10-2024 Glucose quantitative blood xcpt reagent strip Nel Toledo MD Work Phone: Start: 11-10-2024 Basic metabolic pane l calcium total Beti M Bernal DEWATERER OPERATOR - WINDOWS TECHNICAL SPECIALIST Work Phone: Start: 11-10-2024 Manual Differential panel - Blood Nle Toledo MD Work Phone: Start: 11-09-2024 Blood count hematocrit Beti M Dolores DEWATERER OPERATOR - WINDOWS TECHNICAL SPECIALIST Work Phone: Start: 11-09-2024 Glucose quantitative blood xcpt reagent strip Nel Toledo MD Work Phone: Start: 11-09-2024 Glucose quantitative blood xcpt reagent strip Nel Toledo MD Work Phone: Start: 11-09-2024 Blood count hematocrit Beti M Dolores DEWATERER OPERATOR - WINDOWS TECHNICAL SPECIALIST Work Phone: Start: 11-09-2024 Glucose quantitative blood xcpt reagent strip Nel Toledo MD Work Phone: Start: 11-09-2024 Glucose quantitative blood xcpt reagent strip Nel Toledo MD Work Phone: Start: 11-09-2024 Basic metabolic pane l calcium total Beti Martinez Dolores DEWATERER OPERATOR - WINDOWS TECHNICAL SPECIALIST Work Phone: Start: 11-08-2024 Blood count hematocrit Beti Mariord DEWATERER OPERATOR - WINDOWS TECHNICAL SPECIALIST Work Phone: Start: 11-08-2024 End: 11-08-2024 Compatibility each unit electronic Ned Glozman DO Work Phone: Start: 11-08-2024 End: 11-08-2024 TRANSFUSE RED BLOOD CELLS Ned Glozman DO Work Phone: Start: 11-08-2024 Cyanocobalamin vitamin b-12 Beti Martinez Dolores DEWATERER OPERATOR - WINDOWS TECHNICAL SPECIALIST Work Phone: Start: 11-08-2024 Radiologic exam ches t single view Ned Glozman DO Work Phone: Start: 11-08-2024 Ct head/brain w/o co ntrast material Ned Glozman DO Work Phone: Start: 11-08-2024 Antibody screen CELIA SERVANDO Comment on above: Performed By: #### L [id number] ####Nut Feeder: DARELL MCGUIRE ([id number])[facility] ([facility])[address] Start: 11-08-2024 Blood typing serologic abo Ned Glozman DO Work Phone: Start: 11-08-2024 Comprehensive metabo lic panel Ned Glozman DO Work Phone: Start: 11-08-2024 Ecg routine ecg w/le ast 12 lds trcg only w/o i&r Ned Glozman DO Work Phone: Start: 11-07-2024 Complete blood count with white cell differential, automated Marcia Correa DEWATERER OPERATOR - WINDOWS TECHNICAL SPECIALIST Work Phone: Start: 11-07-2024 Comprehensive metabo lic panel Marcia Correa DEWATERER OPERATOR - WINDOWS TECHNICAL SPECIALIST Work Phone: Start: 11-07-2024 Lipid panel Marcia Thomas camille DEWATERER OPERATOR - WINDOWS TECHNICAL SPECIALIST Work Phone: Start: 11-07-2024 Ecg routine ecg w/le ast 12 lds trcg only w/o i&r Rashi Jerome MD Work Phone: Start: 11-07-2024 Follow-up visit CELIA AL Start: 10-28-2024 Follow-up visit CELIA AL Start: 10-21-2024 Urinalysis complete panel - Urine Parrish Jones Kaylynn milabent Work Phone: Start: 10-21-2024 Urnls dip stick/tabl et reagent auto microscopy gurwinder Jones Kaylynn DO Work Phone: Start: 10-21-2024 Radiologic exam ches t single view Parrish Jones Kaylynn DO Work Phone: Start: 10-21-2024 Ecg routine ecg w/le ast 12 lds trcg only w/o i&r Parrish Jones Kaylynn DO Work Phone: Start: 10-21-2024 Comprehensive metabo lic panel Piotrleola Jones Kaylynn DO Work Phone: Start: 09-16-2024 Ecg routine ecg w/le ast 12 lds trcg only w/o i&r Rashi Jerome MD Work Phone: Start: 09-16-2024 Follow-up visit CELIA AL Start: 08-29-2024 Thoracentesis needle /cath pleura w/imaging Stella Cortes DEWATERER OPERATOR - WINDOWS TECHNICAL SPECIALIST Work Phone: Start: 08-29-2024 BODY FLUID CELL COUN T WITH REFLEX DIFF Stella Cortes DEWATERER OPERATOR - WINDOWS TECHNICAL SPECIALIST Work Phone: Start: 08-29-2024 BODY FLUID DIFFERENTIAL Stella Cortes DEWATERER OPERATOR - WINDOWS TECHNICAL SPECIALIST Work Phone: Start: 08-29-2024 Cul bact xcpt urine blood/stool aerobic isol Stella Cortes DEWATERER OPERATOR - WINDOWS TECHNICAL SPECIALIST Work Phone: Start: 08-29-2024 Ph body fluid not el sewhere specified Stella Cortes DEWATERER OPERATOR - WINDOWS TECHNICAL SPECIALIST Work Phone: Start: 08-29-2024 Glucose quantitative blood xcpt reagent strip Nataly Wilson MD Work Phone: Start: 08-29-2024 Comprehensive metabo lic panel Reginald Garza DO Work Phone: Start: 08-28-2024 Glucose quantitative blood xcpt reagent strip Nataly Wilson MD Work Phone: Start: 08-28-2024 Glucose quantitative blood xcpt reagent strip Nataly Wilson MD Work Phone: Start: 08-28-2024 Glucose quantitative blood xcpt reagent strip Nataly Wilson MD Work Phone: Start: 08-28-2024 Glucose quantitative blood xcpt reagent strip Nataly Wilson MD Work Phone: Start: 08-28-2024 Glucose quantitative blood xcpt reagent strip Nataly Wilson MD Work Phone: Start: 08-28-2024 Glucose quantitative blood xcpt reagent strip Nataly Wilson MD Work Phone: Start: 08-28-2024 Radiologic exam ches t single view Nataly Wilson MD Work Phone: Start: 08-28-2024 Comprehensive metabo lic panel Reginald Garza DO Work Phone: Start: 08-27-2024 Iaadiadoo not otherw ise specified Jose Manuel Peña MD Work Phone: Start: 08-27-2024 LEGIONELLA AND STREPTOCOCCUS URINE ANTIGEN, ORDERABLE Jose Manuel Peña MD Work Phone: Start: 08-27-2024 URINE HOLD CUP Jose Manuel Peña MD Work Phone: Start: 08-27-2024 End: 08-27-2024 Procalcitonin (pct) Jose Manuel Peña MD Work Phone: Start: 08-27-2024 Respiratory pathogen s DNA and RNA panel - Nasopharynx by CYNDI with non-probe detection Jose Manuel Peña MD Work Phone: Start: 08-27-2024 Glucose quantitative blood xcpt reagent strip Nataly Wilson MD Work Phone: Start: 08-27-2024 Glucose quantitative blood xcpt reagent strip Nataly Wilson MD Work Phone: Start: 08-27-2024 End: 08-27-2024 Comprehensive metabolic panel Reginald Garza DO Work Phone: Start: 08-27-2024 Radiologic exam ches t single view Reginald Kevin Thelma DO Work Phone: Start: 08-26-2024 Glucose quantitative blood xcpt reagent strip Leticia Landa MD Work Phone: Start: 08-26-2024 Assay of troponin quantitative Leticia Landa MD Work Phone: Start: 08-26-2024 Ct angio abd&plvis c ntrst mtrl w/wo cntrst img Leticia Landa MD Work Phone: Start: 08-26-2024 Radiologic exam ches t single view Leticia Landa MD Work Phone: Start: 08-26-2024 Comprehensive metabo lic panel Leticia Landa MD Work Phone: Start: 08-26-2024 Manual Differential panel - Blood Leticia Landa MD Work Phone: Start: 08-26-2024 SARS-COV-2, FLU A/B, AND RSV COMBO Leticia Landa MD Work Phone: Start: 08-26-2024 Ecg routine ecg w/le ast 12 lds trcg only w/o i&r Leticia Landa MD Work Phone: Start: 08-26-2024 Ecg routine ecg w/le ast 12 lds w/i&r Celia Al DO Work Phone: Start: 08-19-2024 Follow-up visit CELIA AL Start: 08-01-2024 Ecg routine ecg w/le ast 12 lds w/i&r Meet Lisbeth Leigh MD Work Phone: Start: 08-01-2024 Follow-up visit CELIA AL Start: 07-25-2024 Echo tthrc r-t 2d w/wom-mode compl spec&colr d Gi Mendoza DEWATERER OPERATOR - WINDOWS TECHNICAL SPECIALIST Work Phone: Start: 07-20-2024 Radiologic exam swal low function contrast study Stephanie Arana DO Work Phone: Start: 07-07-2024 Follow-up visit CELIA AL Start: 06-21-2024 POLYSOMNOGRAPHY Kristy Doran DEWATERER OPERATOR - WINDOWS TECHNICAL SPECIALIST Work Phone: Start: 06-07-2024 Follow-up visit CELIA AL Start: 06-01-2024 Ecg routine ecg w/le ast 12 lds w/i&r Meet Lisbeth Leigh MD Work Phone: Start: 06-01-2024 Follow-up visit CELIA AL Start: 05-05-2024 Ecg routine ecg w/le ast 12 lds trcg only w/o i&r Jaqueline Price DEWATERER OPERATOR - WINDOWS TECHNICAL SPECIALIST Work Phone: Start: 05-05-2024 Glucose quantitative blood xcpt reagent strip Meet Lisbeth Leigh MD Work Phone: Start: 05-05-2024 Electrophysiology study Gi Mendoza DEWATERER OPERATOR - WINDOWS TECHNICAL SPECIALIST Work Phone: Start: 05-05-2024 End: 05-05-2024 POCT ACT Meet Lisbeth Leigh MD Work Phone: Start: 05-05-2024 Glucose quantitative blood xcpt reagent strip Meet Lisbeth Leigh MD Work Phone: Start: 05-04-2024 HOME SLEEP TEST Kristy Doran DEWATERER OPERATOR - WINDOWS TECHNICAL SPECIALIST Work Phone: Start: 05-02-2024 Duplex scan extracra nial art compl bi study Rashi Jerome MD Work Phone: Start: 04-15-2024 Ecg routine ecg w/le ast 12 lds w/i&r Walt Leigh MD Work Phone: Start: 04-15-2024 Follow-up visit CELIA AL Start: 03-11-2024 Follow-up visit CELIA AL Start: 02-15-2024 Ecg routine ecg w/le ast 12 lds trcg only w/o i&r Rashi Radford MD Work Phone: Start: 02-09-2024 Ecg routine ecg w/le ast 12 lds w/i&r Martha Horton MD Work Phone: Start: 02-01-2024 Ecg routine ecg w/le ast 12 lds w/i&r Rashi Jerome MD Work Phone: Start: 01-22-2024 Glucose quantitative blood xcpt reagent strip Manjit Ramirez MD Work Phone: Start: 01-22-2024 Echo tthrc r-t 2d w/wom-mode compl spec&colr d Bret Garcia MD Work Phone: Start: 01-22-2024 Glucose quantitative blood xcpt reagent strip Manjit Ramirez MD Work Phone: Start: 01-22-2024 Ecg routine ecg w/le ast 12 lds trcg only w/o i&r Satya Mcmahon MD Work Phone: Start: 01-22-2024 Comprehensive metabo lic panel Satya Mcmahon MD Work Phone: Start: 01-21-2024 Glucose quantitative blood xcpt reagent strip Manjit Ramirez MD Work Phone: Start: 01-21-2024 Glucose quantitative blood xcpt reagent strip Manjit Ramirez MD Work Phone: Start: 01-21-2024 End: 01-21-2024 Blood count complete auto&auto difrntl wbc Heather Hall MD Work Phone: Start: 01-21-2024 Glucose quantitative blood xcpt reagent strip Manjit Ramirez MD Work Phone: Start: 01-21-2024 Ct soft tissue neck w/contrast material Bret Garcia MD Work Phone: Start: 01-21-2024 Comprehensive metabo lic panel Satya Mcmahon MD Work Phone: Start: 01-21-2024 Ecg routine ecg w/le ast 12 lds trcg only w/o i&r Satya Mcmahon MD Work Phone: Start: 01-20-2024 Echo transesophag r- t 2d w/prb img acquisj i&r Satya Mcmahon MD Work Phone: Start: 01-20-2024 Ecg routine ecg w/le ast 12 lds trcg only w/o i&r Lynda Hughes MD Work Phone: Start: 01-20-2024 Ecg routine ecg w/le ast 12 lds trcg only w/o i&r Satya Mcmahon MD Work Phone: Start: 01-20-2024 Comprehensive metabo lic panel Satya Mcmahon MD Work Phone: Start: 01-19-2024 Urinalysis complete panel - Urine Attthuan Christensen MD Work Phone: Start: 01-19-2024 Urnls dip stick/tabl et reagent auto microscopy Cinthya Christensen MD Work Phone: Start: 01-19-2024 Assay of lactate Bret Garcia MD Work Phone: Start: 01-19-2024 Assay of magnesium Pete Mcmahon MD Work Phone: Start: 01-19-2024 Blood gases any comb ination ph pco2 po2 co2 hco3 Sandrine Hill DO Work Phone: Start: 01-19-2024 Ct angiography chest w/contrast/noncontrast Cinthya Christensen MD Work Phone: Start: 01-19-2024 Ct abdomen & pelvis w/contrast material Cinthya Christensen MD Work Phone: Start: 01-19-2024 Comprehensive metabo lic panel Cinthya Christensen MD Work Phone: Start: 01-19-2024 Radiologic exam ches t single view Cinthya Christensen MD Work Phone: Start: 01-19-2024 End: 01-19-2024 Ecg routine ecg w/least 12 lds trcg only w/o i&r Sandrine Harris DO Work Phone: Start: 01-19-2024 Ecg routine ecg w/le ast 12 lds w/i&r Celia N Al DO Work Phone: Start: 11-18-2023 Lipid 1996 panel - S ana paula or Plasma Ahu 1 Start: 11-18-2023 Thyrotropin [Units/v olume] in Serum or Plasma Sandrine Harris DO Work Phone: Start: 10-29-2023 Brncdilat rspse spmt ry pre&post-brncdilat admn Stephanie Natalia-Chavez DO Work Phone: Start: 10-06-2023 Glucose quantitative blood xcpt reagent strip Zari Soria MD Work Phone: Start: 10-06-2023 Radiologic exam ches t single view Stella Cortes DEWATERER OPERATOR - WINDOWS TECHNICAL SPECIALIST Work Phone: Start: 10-06-2023 Glucose quantitative blood xcpt reagent strip Zari Soria MD Work Phone: Start: 10-06-2023 Radiologic exam ches t single view Rosalee Zimmer DO Work Phone: Start: 10-06-2023 Glucose quantitative blood xcpt reagent strip Zari Soria MD Work Phone: Start: 10-06-2023 Basic metabolic pane l calcium total Rosalee Zimmer DO Work Phone: Start: 10-05-2023 Glucose quantitative blood xcpt reagent strip Rosalee Zimmer DO Work Phone: Start: 10-05-2023 Glucose quantitative blood xcpt reagent strip Rosalee Zimmer DO Work Phone: Start: 10-05-2023 Perq drainage pleura insert cath w/imaging Stephanie Arana DO Work Phone: Start: 10-05-2023 End: 10-05-2023 Basic metabolic panel calcium total Rosalee Zimmer DO Work Phone: Start: 10-05-2023 Radiologic exam ches t single view Stephanie Arana DO Work Phone: Start: 10-05-2023 Cell count miscellan eous body fluids Stephanie Arana DO Work Phone: Start: 10-05-2023 End: 10-05-2023 Smr prim src gram/giemsa stain bct fungi/cell Stephanie Arana DO Work Phone: Start: 10-05-2023 FL GUIDANCE OR USE O NLY - NON-RESULTABLE Stephanie Arana DO Work Phone: Start: 10-05-2023 End: 10-05-2023 Cytp eval fine needle aspirate interp & report Stephanie Arana DO Work Phone: Start: 10-05-2023 End: 10-05-2023 Brnschsc tndsc ebus dx/tx intervention perph les Stephanie Arana DO Work Phone: Start: 10-05-2023 End: 10-05-2023 Bronchoscopy w/cptr-asst image-guided navigation Stephanie Arana DO Work Phone: Start: 09-17-[address] atten uation skull base mid-thigh Keven Marcus MD Work Phone: Start: 05-07-2023 Ecg routine ecg w/le ast 12 lds w/i&r Rashi Jerome MD Work Phone: Start: 12-15-2022 Bone &/joint imaging whole body Keven Marcus MD Work Phone: Start: 12-15-2022 Ct thorax w/contrast material Keven Marcus MD Work Phone: Start: 10-16-2022 Lipid 1996 panel - S ana paula or Plasma Ryan Gerard DO Work Phone: Start: 09-18-2022 Echo tthrc r-t 2d w/wom-mode compl spec&colr d Rashi Jerome MD Work Phone: Start: 09-01-2022 Ecg routine ecg w/le ast 12 lds w/i&r Rashi Jerome MD Work Phone: Start: 05-06-2022 Duplex scan extracra nial art compl bi study Rashi Jerome MD Work Phone: Start: 04-29-2021 Duplex scan extracra nial art compl bi study Rashi Jerome MD Work Phone: Start: 10-13-2020 Xray Chest 2 View PA + Lateral Ryan Gerard Start: 06-14-2020 Lipid 1995 panel - S ana paula or Plasma Rashi Jerome MD Work Phone: Start: 04-27-2020 Echo tthrc r-t 2d w/wom-mode compl spec&colr d Rashi Jerome Work Phone: Start: 10-31-2019 MG Breast screening Sera Al Start: 10-31-2019 Xray Foot Complete M in 3 View Celia Al Start: 09-20-2019 Hemoglobin glycosylated a1c Celia Al Start: 09-08-2019 25 hydroxy includes fractions if performed Celia Al Start: 09-08-2019 CBC W Auto Different ial panel - Blood Celia Al Start: 09-08-2019 Comprehensive metabo lic 2000 panel Celia Al Start: 09-08-2019 Lipid panel Celia flores Start: 09-08-2019 TSH WITH REFLEX TO F REE T4 IF ABNORMAL Celia Al Start: 03-04-2018 End: 03-05-2018 Blood pressure within normal parameters - no follow-up required Elis Martinez [place] DEWATERER OPERATOR-[employer] Work Phone: Start: 03-04-2018 End: 03-05-2018 BMI documented as above normal parameters - follow-up documented Elis Martinez Felipe DEWATERER OPERATOR-[employer] Work Phone: Start: 03-04-2018 End: 03-05-2018 Current medications documented Elis Martinez Felipe DEWATERER OPERATOR-[employer] Work Phone: Start: 03-04-2018 End: 03-05-2018 Pain assessment documented as positive - follow-up documented Elis Michelle [place] DEWATERER OPERATOR-[employer] Work Phone: Start: 03-04-2018 End: 03-05-2018 Tobacco non-user Elis Michelle [place] DEWATERER OPERATORG[employer] Work Phone: Start: 06-11-2015 History of bilateral mastectomy History of bilateral mastectomy Rashi Jerome MD Work Phone: Start: 09-21-2008 CONVERTED SURGICAL PATHOLOGY Mandy Rodríguez Work Phone: Start: 10-20-2001 CONVERTED SURGICAL PATHOLOGY Fay Cassidy Work Phone: Cataract surgery Celia Malloy s History of Carotid A rtery Exploration Celia Al Hysterectomy Celia Al Unilateral mastectomy Celia Al Plan of Treatment Date Care Activity Detail Author Start: 01-28-2028 Diabetes Screening Diabetes Screenin [facility] Start: 11-26-2027 Diabetes Screening Diabetes Screenin [facility] Start: 12-22-2026 Glaucoma screening Diabetes: R etinopathy Screening [facility] Start: 03-10-2026 Complete blood count Hemoglobin/Chad tocrit [facility] Start: 03-10-2026 Creatinine measurement Serum Creatin ine [facility] Start: 12-14-2025 Glaucoma screening Diabetes: R etinopathy Screening [facility] Start: 12-03-2025 Diabetes Screening Diabetes Screenin g [facility] Start: 11-26-2025 Medicare Annual Well ness Visit Medicare Annual Wellness Visit (AWV) [facility] Start: 11-25-2025 Creatinine measurement [facility] Start: 11-25-2025 Potassium measurement Potassium Leve l [facility] Start: 11-16-2025 Creatinine measurement Creatinine Le [facility] [employer] Start: 11-16-2025 Diabetes: Estimated Glomerular Filtration Rate for [facility] Diabetes: Estimated Glomerular Filtration Rate for [facility] [employer] Start: 11-16-2025 Hepatitis B surface antibody level LDL Cholesterol [facility] Start: 11-16-2025 Lipid panel Lipid Panel [facility] Start: 11-16-2025 Potassium measurement Potassium Leve l [employer] Start: 11-11-2025 Creatinine measurement Creatinine Le [facility] [employer] Start: 11-11-2025 Diabetes: Estimated Glomerular Filtration Rate for [facility] Diabetes: Estimated Glomerular Filtration Rate for [employer] Start: 11-11-2025 Potassium measurement Potassium Leve l [employer] Start: 11-07-2025 Creatinine measurement Creatinine [facility] [employer] Start: 11-07-2025 Diabetes: Estimated Glomerular Filtration Rate for [facility] Diabetes: Estimated Glomerular Filtration Rate for [employer] Start: 11-07-2025 Potassium measurement Potassium Leve l [employer] Start: 10-21-2025 Creatinine measurement Creatinine [employer] Start: 10-21-2025 Diabetes: Estimated Glomerular Filtration Rate for [facility] Diabetes: Estimated Glomerular Filtration Rate for [employer] Start: 10-21-2025 Potassium measurement Potassium Leve l [employer] Start: 09-25-2025 Screening for osteoporosis Bone Density Scan [facility] Comment on above: Postponed from 10/22 (Other Medical Reasons) Start: 09-16-2025 Creatinine measurement Creatinine [facility] Start: 09-16-2025 Diabetes: Estimated Glomerular Filtration Rate for [facility] Diabetes: Estimated Glomerular Filtration Rate for [employer] Start: 09-16-2025 Potassium measurement Potassium Leve l [employer] Start: 08-29-2025 Creatinine measurement Creatinine [facility] Start: 08-29-2025 Diabetes: Estimated Glomerular Filtration Rate for [facility] Diabetes: Estimated Glomerular Filtration Rate for [facility] Start: 08-29-2025 Potassium measurement Potassium Leve l [facility] Start: 08-02-2025 Creatinine measurement Creatinine Le tanja [facility] Start: 08-02-2025 Potassium measurement Potassium Ryan l [facility] Start: 07-29-2025 Hemoglobin A1c measurement HbA1C [facility] Start: 07-28-2025 End: 07-28-2025 Patient encounter procedure 07/28/2025 11:15 AM EST Office Visit [facility] [address] [facility] [place] [phone] Dominick Huggins MD [address] [facility] [address] [place] [phone] 8 week post op [facility] Comment on above: 8 week post op Start: 07-25-2025 Echocardiography Echocardiogram [facility] Start: 07-17-2025 End: 07-17-2025 Patient encounter procedure 07/17/2025 1:05 PM EST Office Visit [facility] - [place] [address] [place] [phone] Nickolas Pagan MD [address] [place] [address] [facility] [place] Start: 06-13-2025 Diabetes: Urine Albumin-Creatinine Ratio for [facility] Diabetes: Urine Albumin-Creatinine Ratio for [facility] Start: 06-13-2025 Hepatitis B screening Urine Albumin:Creatinine Ratio [facility] Start: 06-08-2025 End: 06-08-2025 Patient encounter procedure 06/08/2025 11:30 AM EDT Office Visit [facility] [address] [place] [phone] Nai Esquivel, SUJATA.WINDOWS TECHNICAL SPECIALIST [address] [facility] [facility] [address] [place], [place] [id number] 2 week post op, [facility] Comment on above: 2 week post op, Start: 05-25-2025 End: 05-25-2025 Admission to same day surgery center 05/25/2025 7:30 AM EDT - 05/25/2025 9:45 AM EDT Surgery [address] [place] [address] Dominick Huggins MD [address] [place] [phone] DECOMPRESSION LAMINECTOMY LUMBAR POSTERIOR LEVEL 1 [facility] Comment on above: DECOMPRESSION BG CTOMY LUMBAR POSTERIOR LEVEL 1 Start: 05-25-2025 End: 05-25-2025 Dillon facetectomy & foramotomy 1 segment lumbar DECOMPRESSION LAMINECTOMY LUMBAR POSTERIOR LEVEL 1 Spinal stenosis of lumbar region with neurogenic claudication 05/25/2025 7:30 AM EDT [place] Start: 05-25-2025 End: 05-25-2025 Dillon facetectomy&foramtomy 1 sgm ea crv thrc/lmbr DECOMPRESSION LAMINECTOMY 1ST ADD'L LUMBAR SEGMENT Spinal stenosis of lumbar region with neurogenic claudication 05/25/2025 7:30 AM EDT [place] Start: 05-25-2025 Subsequent hospital visit by physician 05/25/2025 7:30 AM EDT Hospital Encounter [address] [place] [address] Domniick Huggins MD [address] [place] [phone] Spinal stenosis of lumbar region with neurogenic claudication [M48.062] [facility] Comment on above: Spinal stenosis of l umbar region with neurogenic claudication [M48.062] Start: 05-12-2025 End: 05-12-2025 ambulatory 05/12/2025 1:40 PM EDT PAT Pre Surgical Testing [address] [place] [address] L3-L5 [facility] Comment on above: L3-L5 [facility] Start: 05-12-2025 End: 05-12-2025 Patient encounter procedure [facility] Comment on above: xray 6 week post op Start: 05-02-2025 Creatinine measurement Creatinine Le [facility] Start: 05-02-2025 Potassium measurement Potassium Leve l [facility] Start: 04-29-2025 Hemoglobin A1c measurement Diabetes: Hemoglobin A1C [facility] Start: 04-20-2025 Creatinine measurement Creatinine Le [facility] Start: 04-20-2025 Diabetes: Estimated Glomerular Filtration Rate for [facility] Diabetes: Estimated Glomerular Filtration Rate for [facility] Start: 04-20-2025 Potassium measurement Potassium Leve l [facility] Start: 04-17-[address] [facility] Start: 04-13-2025 End: 04-13-2025 Patient encounter procedure [facility] [place] [facility] Comment on above: xray 2 week post op, [facility] Start: 04-11-2025 End: 04-11-2025 Patient encounter procedure 04/11/2025 1:00 PM EDT Office Visit [facility] [address] [place] [phone] Keven Marcus MD [address] [place] [address] [facility] Start: 03-30-2025 End: 03-30-2025 Admission to same day surgery center 03/30/2025 11:15 AM EDT - 03/30/2025 2:45 PM EDT Surgery [address] [address] Dominick Huggins MD [address] [facility] [place] [phone] CERVICAL LAMINOPLASTY WITH DECOMPRESSION 2 OR MORE SEGMENTS [facility] Comment on above: CERVICAL LAMINOPLAST Y WITH DECOMPRESSION 2 OR MORE SEGMENTS Start: 03-30-2025 End: 03-30-2025 Lamop cervical w/dcmprn spi cord 2/> vert seg CERVICAL LAMINOPLASTY WITH DECOMPRESSION 2 OR MORE SEGMENTS Spinal stenosis in cervical region 03/30/2025 11:15 AM EDT [facility] Start: 03-30-2025 Subsequent hospital visit by physician 03/30/2025 11:15 AM EDT Hospital Encounter [address] [address] Dominick Huggins MD [address] [facility] [place] [phone] Spinal stenosis in cervical region [M48.02] [facility] Comment on above: Spinal stenosis in c ervical region [M48.02] Start: 03-23-2025 End: 03-23-2025 ambulatory 03/23/2025 11:00 AM EDT OT/PT/Speech Visit [facility] [address] [place] [address] Haley Dean, PT Spinal stenosis of cervical region [M48.02] [facility] Comment on above: Spinal stenosis of c ervical region [M48.02] Start: 03-16-2025 End: 03-16-2025 ambulatory 03/16/2025 10:15 AM EDT OT/PT/Speech Visit [facility] [address] [place] [address] KasMirna perez, SHIFT SUPERINTENDENT CAUSTIC CRESYLATE [address] [place] [address] Spinal stenosis of cervical region [M48.02] [facility] Comment on above: Spinal stenosis of c ervical region [M48.02] Start: 03-10-2025 End: 06-09-2025 aPTT in Platelet poor plasma by Coagulation assay ACTIVATED PARTIAL THROMBOPLASTIN TIME Lab Routine Spinal stenosis of cervical region Expected: 03/10/2025, Expires: 06/09/2025 [facility] Comment on above: Expected: 03/10/2025 , Expires: 06/09/2025 Start: 03-10-2025 End: 06-09-2025 CBC panel - Blood by Automated count COMPLETE BLOOD COUNT Lab Routine Spinal stenosis of cervical region Expected: 03/10/2025, Expires: 06/09/2025 [facility] Comment on above: Expected: 03/10/2025 , Expires: 06/09/2025 Start: 03-10-2025 End: 06-09-2025 Comprehensive metabolic 2000 panel - Serum or Plasma COMPREHENSIVE METABOLIC PANEL Lab Routine Spinal stenosis of cervical region Expected: 03/10/2025, Expires: 06/09/2025 [facility] Comment on above: Expected: 03/10/2025 , Expires: 06/09/2025 Start: 03-10-2025 End: 02-23-2026 ECG COMPLETE ECG COMPLETE ECG Routine Spinal stenosis of cervical region Expected: 03/10/2025, Expires: 02/23/2026 [facility] Comment on above: Expected: 03/10/2025 , Expires: 02/23/2026 Start: 03-10-2025 End: 06-09-2025 Hemoglobin A1c in Blood HEMOGLOBIN A1C Lab Routine Spinal stenosis of cervical region Expected: 03/10/2025, Expires: 06/09/2025 [facility] Comment on above: Expected: 03/10/2025 , Expires: 06/09/2025 Start: 03-10-2025 End: 06-09-2025 PT panel - Platelet poor plasma by Coagulation assay PROTHROMBIN TIME Lab Routine Spinal stenosis of cervical region Expected: 03/10/2025, Expires: 06/09/2025 [facility] Comment on above: Expected: 03/10/2025 , Expires: 06/09/2025 Start: 03-10-2025 End: 06-09-2025 STAPHYLOCOCCUS AUREUS & MRSA SCREEN, PCR, NASAL STAPHYLOCOCCUS AUREUS & MRSA SCREEN, PCR, NASAL Lab Routine Spinal stenosis of cervical region Expected: 03/10/2025, Expires: 06/09/2025 [facility] Comment on above: Expected: 03/10/2025 , Expires: 06/09/2025 Start: 03-10-2025 End: 06-09-2025 TYPE AND SCREEN,30 DAY TYPE AND SCREEN,30 DAY Blood Bank Routine Spinal stenosis of cervical region Expected: 03/10/2025, Expires: 06/09/2025 [facility] Comment on above: Expected: 03/10/2025 , Expires: 06/09/2025 Start: 03-10-2025 End: 03-10-2025 ambulatory 03/10/2025 1:00 PM EDT PAT Pre Surgical Testing [address] [place] [address] C4-C6 Laminoplasty Pre Surgical Testing Comment on above: C4-C6 Laminoplasty Start: 03-10-2025 End: 03-10-2025 Patient encounter procedure 03/10/2025 11:45 AM EDT Office Visit [facility] [address] [facility] [place] [phone] Dominick Huggins MD [address] [facility] [place] [phone] surgical consent [facility] Comment on above: surgical consent Start: 03-09-2025 End: 03-09-2025 ambulatory 03/09/2025 11:00 AM EDT OT/PT/Speech Visit [facility] [address] [place] [address] Mirna Naik, SHIFT SUPERINTENDENT CAUSTIC CRESYLATE [address] [place] [address] Spinal stenosis of cervical region [M48.02] [facility] Comment on above: Spinal stenosis of c ervical region [M48.02] Start: 03-08-2025 End: 03-08-2025 Patient encounter procedure 03/08/2025 1:15 PM EDT Office Visit [facility] [address] [facility] [place] [phone] Dominick Huggins MD [address] [facility] [place] [phone] MRI f/u [facility] Comment on above: MRI f/u Start: 02-28-2025 End: 02-28-2025 ambulatory 02/28/2025 10:30 AM EDT OT/PT/Speech Visit [facility] [address] [place] [address] Haley Dean, PT Spinal stenosis of cervical region [M48.02] [place] [facility] Physical [facility] Comment on above: Spinal stenosis of c ervical region [M48.02] Start: 02-20-2025 End: 02-20-2025 Patient encounter procedure 02/20/2025 1:40 PM EDT Office Visit [facility] [address] [facility] [address] [place] [phone] Celia Al DO [address] [facility] [place] [address] [facility] Start: 02-15-2025 Hemoglobin A1c measurement Diabetes: Hemoglobin A1C [facility] Start: 02-14-2025 Orders Only 02/14/2025 Ord ers Only [facility] [address] [facility] [address] [place] [phone] Juany Larsen RN Iron deficiency anemia, unspecified iron deficiency anemia type [facility] Comment on above: Iron deficiency anem ia, unspecified iron deficiency anemia type Start: 02-08-2025 End: 02-08-2025 Patient encounter procedure [facility] Comment on above: XR CERV OTHER 4V AP/ LAT/FLX/EXT MRI f/u Start: 02-06-2025 End: 02-06-2025 Patient encounter procedure [facility] Comment on above: Dx: Spinal stenosis of cervical region [M48.02] Dx: Spinal stenosis of lumbar region with neurogenic claudication [M48.062] Start: 02-01-2025 End: 02-01-2025 Patient encounter procedure [facility] Comment on above: Dx: Spinal stenosis of cervical region [M48.02] Dx: Spinal stenosis of lumbar region with neurogenic claudication [M48.062] Start: 01-31-2025 Creatinine measurement Creatinine Le tanja [facility] Start: 01-31-2025 Potassium measurement Potassium Leve l [facility] Start: 01-27-2025 End: 01-27-2026 CBC W Auto Differential panel - Blood CBC and Auto Differential Lab Routine Anemia, unspecified type Expected: 01/27/2025 (Approximate), Expires: 01/27/2026 [facility] Service Area Work Phone: Comment on above: Expected: 01/27/2025 (Approximate), Expires: 01/27/2026 Start: 01-27-2025 End: 01-27-2026 Ferritin [Mass/volume] in Serum or Plasma Ferritin Lab Routine Anemia, unspecified type Expected: 01/27/2025 (Approximate), Expires: 01/27/2026 [facility] Work Phone: Comment on above: Expected: 01/27/2025 (Approximate), Expires: 01/27/2026 Start: 01-27-2025 End: 01-27-2026 Iron and Iron binding capacity panel - Serum or Plasma Iron and TIBC Lab Routine Anemia, unspecified type Expected: 01/27/2025 (Approximate), Expires: 01/27/2026 [facility] Work Phone: Comment on above: Expected: 01/27/2025 (Approximate), Expires: 01/27/2026 Start: 01-26-2025 Creatinine measurement Creatinine Le tanja [facility] Start: 01-26-2025 Potassium measurement Potassium Leve l [facility] Start: 01-21-2025 Echocardiography Echocardiogram [facility] Start: 01-18-2025 End: 04-19-2025 Hemoglobin A1c in Blood HEMOGLOBIN A1C Lab Routine Elevated blood sugar Expected: 01/18/2025, Expires: 04/19/2025 [facility] Comment on above: Expected: 01/18/2025 , Expires: 04/19/2025 Start: 01-16-2025 End: 01-16-2025 Patient encounter procedure 01/16/2025 11:30 AM EDT Appointment [facility] Non-Invasive Cardiology [address] [place] [address] [facility] Non-Invasive Cardiology Start: 12-28-2024 End: 12-28-2024 Patient encounter procedure 12/28/2024 2:15 PM EDT Office Visit [facility]monary - [place] [address] [place] [phone] Nickolas Pagan MD [address] [place] [address] [facility] [place] Start: 12-23-2024 End: 12-23-2024 Patient encounter procedure [facility] Start: 12-22-2024 End: 12-22-2024 Patient encounter procedure 12/22/2024 11:00 AM EDT Office Visit [facility] Health Pulmonary - [place] [address] [place] [address] Nickolas Pagan MD [address] [place] [address] [facility] [place] Start: 12-20-2024 Subsequent hospital visit by physician 12/20/2024 10:00 AM EDT Hospital Encounter [facility] [address] [place] [phone] Stephanie Arana DO [address] [place] [address] [facility] Start: 12-14-2024 Glaucoma screening Diabetes: R etinopathy Screening [facility] Start: 12-12-2024 End: 12-12-2024 Patient encounter procedure 12/12/2024 1:00 PM EDT Office Visit [facility] Cardiology - [place] [address] [facility] [address] [place] [phone] Rashi Jerome MD [address] [facility] [address] [place] [address] [facility] - [place] Start: 12-05-2024 End: 12-05-2024 Patient encounter procedure 12/05/2024 11:30 AM EDT Appointment [facility] Non-Invasive Cardiology [address] [place] [phone] Marcia Correa, SUJATA - WINDOWS TECHNICAL SPECIALIST [address] [facility] [address] [place], [place] [address] [facility] Non-Invasive Cardiology Start: 11-30-2024 End: 11-30-2024 Patient encounter procedure 11/30/2024 11:30 AM EDT Appointment [facility] [address] Non-Invasive Cardiology [address] [place] [phone] Marcia Correa APRN - WINDOWS TECHNICAL SPECIALIST 1 [facility] [address] [place] [address] [facility] [address] Non-Invasive Cardiology Start: 11-25-2024 End: 11-25-2024 Patient encounter procedure 11/25/2024 1:00 PM EDT Office Visit [facility] [address] [facility] [address] [place] [phone] Celia Al DO [address] [facility] [address] [place], [place] [address] [facility] Start: 11-24-2024 Medicare Annual Well ness Visit Medicare Annual Wellness Visit (AWV) [facility] Start: 11-23-2024 End: 11-23-2024 Patient encounter procedure 11/23/2024 1:00 PM EDT Office Visit [facility] Cardiology - [place] [address] [facility] [address] [place] [address] Rashi Jerome MD [address] [facility] [address] [place], [place] [id number] [facility] [place] Start: 11-18-2024 End: 11-18-2025 CBC W Auto Differential panel - Blood CBC and Auto Differential Lab Routine Iron deficiency anemia, unspecified iron deficiency anemia type Expected: 11/18/2024 (Approximate), Expires: 11/18/2025 [facility] Service Area Work Phone: Comment on above: Expected: 11/18/2024 (Approximate), Expires: 11/18/2025 Start: 11-18-2024 End: 11-18-2025 Comprehensive metabolic 2000 panel - Serum or Plasma Comprehensive metabolic panel Lab Routine Iron deficiency anemia, unspecified iron deficiency anemia type Expected: 11/18/2024 (Approximate), Expires: 11/18/2025 [facility] Work Phone: Comment on above: Expected: 11/18/2024 (Approximate), Expires: 11/18/2025 Start: 11-17-2024 Lipid panel Lipid Panel [facility] Start: 11-17-2024 Thyroid stimulating hormone measurement TSH Level [facility] Start: 11-10-2024 Subsequent hospital visit by physician 11/10/2024 11:45 AM EDT Hospital Encounter [facility] [address] Non-Invasive Cardiology [address] [place] [phone] Marcia Correa, DEWATERER OPERATOR - WINDOWS TECHNICAL SPECIALIST 1 [facility] [address] [place], [place] [address] [facility] [address] Non-Invasive Cardiology Start: 11-07-2024 End: 11-07-2025 CBC W Auto Differential panel - Blood CBC auto differential Lab Routine CRUZ (dyspnea on exertion) Expected: 11/07/2024 (Approximate), Expires: 11/07/2025 [facility] Comment on above: Expected: 11/07/2024 (Approximate), Expires: 11/07/2025 Start: 11-07-2024 End: 11-07-2025 CK total and CKMB CK total and CKMB Lab STAT CRUZ (dyspnea on exertion) Expected: 11/07/2024 (Approximate), Expires: 11/07/2025 [facility] Comment on above: Expected: 11/07/2024 (Approximate), Expires: 11/07/2025 Start: 11-07-2024 End: 11-07-2025 Comprehensive metabolic 1998 panel - Serum or Plasma Comprehensive metabolic panel Lab Routine CRUZ (dyspnea on exertion) Expected: 11/07/2024 (Approximate), Expires: 11/07/2025 [facility] Comment on above: Expected: 11/07/2024 (Approximate), Expires: 11/07/2025 Start: 11-07-2024 End: 11-07-2025 Lipid 1996 panel - Serum or Plasma Lipid panel Lab Routine Essential hypertension Expected: 11/07/2024 (Approximate), Expires: 11/07/2025 [facility] Work Phone: Comment on above: Expected: 11/07/2024 (Approximate), Expires: 11/07/2025 Start: 11-07-2024 End: 11-07-2025 Serial Troponin, High Sensitivity Serial Troponin, High Sensitivity Lab STAT CRUZ (dyspnea on exertion) Expected: 11/07/2024 (Approximate), Expires: 11/07/2025 [facility] Comment on above: Expected: 11/07/2024 (Approximate), Expires: 11/07/2025 Start: 11-07-2024 End: 11-07-2024 Patient encounter procedure 11/07/2024 11:30 AM EDT Appointment [facility] Non-Invasive Cardiology [address] [place] [phone] Marcia Correa APRN - WINDOWS TECHNICAL SPECIALIST [address] [facility] [address] [place] [address] [facility] Non-Invasive Cardiology Start: 10-31-2024 End: 10-31-2024 Patient encounter procedure 10/31/2024 1:00 PM EDT Office Visit [facility] Cardiology [place] [address] [facility] [address] [place] [phone] Rashi Jerome MD [address] [facility] [address] [place], [place] [address] [facility] - [place] Start: 10-28-2024 End: 10-28-2025 Pulse oximetry, overnight Pulse oximetry, overnight Respiratory Care Routine INGA (obstructive sleep apnea) Expected: 10/28/2024 (Approximate), Expires: 10/28/2025 [facility] Work Phone: Comment on above: Expected: 10/28/2024 (Approximate), Expires: 10/28/2025 Start: 10-28-2024 End: 10-28-2024 Patient encounter procedure 10/28/2024 9:45 AM EDT Office Visit [facility] Lung Nodule [facility] [address] [place] [phone] Stephanie Arana, DO [address] [place] [address] [facility] Lung Nodule [facility] Start: 10-19-2024 End: 10-19-2024 Patient encounter procedure 10/19/2024 5:00 PM EST Appointment [facility] CT Imaging [address] [place] [phone] Stephanie Arana, DO [address] [place] [address] [facility] CT Imaging Start: 10-14-2024 End: 10-14-2024 Clinical Support 10/14/2024 2:30 PM EST Clinical Support [facility] [address] [place] [phone] [facility] Start: 10-14-2024 End: 10-14-2024 Patient encounter procedure 10/14/2024 10:30 AM EST Office Visit [facility] Lung Nodule [facility] [address] [place] [address] Stephanie Arana, [address] [place] [address] [facility] Lung N[facility] Start: 10-12-2024 End: 10-12-2024 Patient encounter procedure 10/12/2024 11:30 AM EST Appointment [facility] Non-Invasive Cardiology [address] [place] [phone] Marcia Correa APRN - WINDOWS TECHNICAL SPECIALIST 1 [facility] [address] [place] [address] [facility] Non-Invasive Cardiology Start: 10-07-2024 End: 10-07-2024 Clinical Support 10/07/2024 2:00 PM EST Clinical Support [facility] [address] [facility] [address] [place] [phone] [facility] Start: 10-03-2024 End: 10-03-2025 XR Chest 2 Views XR chest 2 views Imaging STAT Acute bronchitis, unspecified organism Expected: 10/03/2024, Expires: 10/03/2025 [facility] Service Area Work Phone: Comment on above: Expected: 10/03/2024 , Expires: 10/03/2025 Start: 09-30-2024 End: 08-19-2025 CT Chest WO contrast CT chest wo IV contrast Imaging Routine Organizing pneumonia (CMS/HCC) (HCC) Expected: 09/30/2024, Expires: 08/19/2025 [facility] Work Phone: Comment on above: Expected: 09/30/2024 , Expires: 08/19/2025 Start: 09-30-2024 End: 09-30-2024 Patient encounter procedure 09/30/2024 11:30 AM EST Appointment [facility] CT Imaging [address] [place] [phone] Stephanie Arana, [address] [place] [address] [address] [place] [address] [facility] CT Imaging Start: 09-29-2024 Screening for malign ant neoplasm of breast Mammography BRCA Positive [facility] Start: 09-25-2024 Screening for malign ant neoplasm of breast Mammography BRCA Positive [facility] Start: 09-17-2024 Screening for malign ant neoplasm of breast Mammography BRCA Positive [facility] Start: 09-16-2024 End: 09-16-2025 Basic metabolic 1998 panel - Serum or Plasma Basic metabolic panel Lab Routine 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) Expected: 09/16/2024 (Approximate), Expires: 09/16/2025 [facility] Work Phone: Comment on above: Expected: 09/16/2024 (Approximate), Expires: 09/16/2025 Start: 09-16-2024 End: 09-16-2024 Patient encounter procedure 09/16/2024 1:00 PM EST Office Visit [facility] Cardiology - [place] [address] [place] [phone] Marcia Correa APRN - CNP [address] [facility] [address] [place] [address] [facility]iology - [place] Start: 09-13-2024 Hemoglobin A1c measurement Diabetes: Hemoglobin A1C [facility] Start: 09-07-2024 End: 09-07-2024 Telemedicine consultation with patient 09/07/2024 10:30 AM EST Telemedicine [facility] [address] [place] [address] Stephanie Arana, DO [address] [place] [address] [facility] Start: 08-26-2024 Screening for malign ant neoplasm of breast Mammography BRCA Positive [facility] Start: 08-24-2024 Screening for malign ant neoplasm of breast Mammography BRCA Positive [facility] Start: 08-19-2024 End: 08-19-2024 Patient encounter procedure 08/19/2024 11:30 AM EST Office Visit [facility] Lung Nodule [facility] [address] [place] [address] Stephanie Arana, DO [address] [place] [address] [facility] Lung Nodule [facility] Start: 08-17-2024 Advance Directive Discussion Advance Directive Discussion [facility] Start: 08-17-2024 Medicare Advantage Annual Wellness Visit Medicare Advantage Annual Wellness Visit [facility] Start: 08-01-2024 End: 08-01-2024 Patient encounter procedure 08/01/2024 11:30 AM EST Office Visit [facility] [address] [place] [phone] Walt Leigh MD [address] [place] [address] [facility] Cardiology - [place] Start: 07-28-2024 COVID-19 Vaccine ( season) COVID-19 Vaccine ( season) [facility] Start: 07-28-2024 COVID-19 Vaccine () COVID-19 Vaccine () [facility] Start: 07-27-2024 End: 06-07-2025 CT Chest WO contrast [facility] Comment on above: Expected: 07/27/2024 , Expires: 06/07/2025 Once for 1 Occurrenc es starting 07/27/2024 until 07/27/2024 Start: 07-27-2024 End: 07-27-2024 Patient encounter procedure 07/27/2024 1:30 PM EST Appointment [facility] CT Imaging [address] [place] [address] Stephanie Arana DO [address] [address] [facility] CT Imaging Start: 07-25-2024 End: 06-01-2026 US Heart Transthoracic Transthoracic echocardiogram (TTE) complete with contrast, bubble, strain, and 3D PRN CV Echocardiography Routine Persistent atrial fibrillation (HCC) 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) Essential hypertension Expected: 07/25/2024 (Approximate), Expires: 06/01/2026 [facility] Work Phone: Comment on above: Expected: 07/25/2024 (Approximate), Expires: 06/01/2026 Start: 07-25-2024 End: 07-25-2024 Patient encounter procedure 07/25/2024 1:00 PM EST Appointment [facility] Non-Invasive Cardiology [address] [place] [address] [facility] Non-Invasive Cardiology Start: 07-20-2024 End: 07-20-2024 Patient encounter procedure 07/20/2024 11:30 AM EST Appointment [facility] X-ray Imaging [address] [place] [phone] [facility] X-ray Imaging Start: 07-08-2024 End: 07-08-2024 Patient encounter procedure [facility] Start: 07-07-2024 End: 07-07-2024 Patient encounter procedure 07/07/2024 2:15 PM EST Office Visit [facility] Lung Nodule [facility] [place] [address] [place] [phone] Stephanie Arana DO [address] [place] [address] [facility] Lung Nodule [facility] [place] Start: 07-07-2024 End: 07-07-2025 RF videography Hypopharynx and Esophagus Views for swallowing function W speech and W barium contrast PO FL modified barium with video and speech Imaging Routine Aspiration into airway, initial encounter Expected: 07/07/2024, Expires: 07/07/2025 [facility] Work Phone: Comment on above: Expected: 07/07/2024 , Expires: 07/07/2025 Start: 06-18-2024 End: 06-18-2024 Clinical Support 06/18/2024 8:30 PM EDT Clinical Support [facility] Sleep Lab [address] [place] [phone] Kristy Doran, DEWATERER OPERATOR - WINDOWS TECHNICAL SPECIALIST 1 [facility] [address] [place] [address] [facility] Sleep Lab Start: 06-07-2024 End: 06-07-2025 Anti-neutrophilic cytoplasmic antibody Anti-neutrophilic cytoplasmic antibody Lab Routine Organizing pneumonia (CMS/HCC) (HCC) Expected: 06/07/2024 (Approximate), Expires: 06/07/2025 [facility] Comment on above: Expected: 06/07/2024 (Approximate), Expires: 06/07/2025 Start: 06-07-2024 End: 06-07-2025 CBC W Auto Differential panel - Blood CBC auto differential Lab Routine Organizing pneumonia (CMS/HCC) ([facility]) Expected: 06/07/2024 (Approximate), Expires: 06/07/2025 [facility] Work Phone: Comment on above: Expected: 06/07/2024 (Approximate), Expires: 06/07/2025 Start: 06-07-2024 End: 06-07-2025 Comprehensive metabolic 1998 panel - Serum or Plasma Comprehensive metabolic panel Lab Routine Organizing pneumonia (CMS/HCC) ([facility]) Expected: 06/07/2024 (Approximate), Expires: 06/07/2025 [facility] Comment on above: Expected: 06/07/2024 (Approximate), Expires: 06/07/2025 Start: 06-07-2024 End: 06-07-2025 Cyclic citrul peptide antibody, IgG Cyclic citrul peptide antibody, IgG Lab Routine Organizing pneumonia (CMS/HCC) ([facility]) Expected: 06/07/2024 (Approximate), Expires: 06/07/2025 [facility] Comment on above: Expected: 06/07/2024 (Approximate), Expires: 06/07/2025 Start: 06-07-2024 End: 06-07-2025 Hypersensitivity pneumonitis extended panel Hypersensitivity pneumonitis extended panel Lab Routine Organizing pneumonia (CMS/HCC) ([facility]) Expected: 06/07/2024 (Approximate), Expires: 06/07/2025 [facility] Comment on above: Expected: 06/07/2024 (Approximate), Expires: 06/07/2025 Start: 06-07-2024 End: 06-07-2025 MYOSITIS EXTENDED PANEL MYOSITIS EXTENDED PANEL Lab Routine Organizing pneumonia (CMS/HCC) ([facility]) Expected: 06/07/2024 (Approximate), Expires: 06/07/2025 [facility] [employer]ter Comment on above: Expected: 06/07/2024 (Approximate), Expires: 06/07/2025 Start: 06-07-2024 End: 06-07-2025 Nuclear Ab [Titer] in Serum by Immunofluorescence WERO Lab Routine Organizing pneumonia (CMS/HCC) ([facility]) Expected: 06/07/2024 (Approximate), Expires: 06/07/2025 [facility] [employer] Comment on above: Expected: 06/07/2024 (Approximate), Expires: 06/07/2025 Start: 06-07-2024 End: 06-07-2025 Rheumatoid factor [Units/volume] in Serum or Plasma Rheumatoid factor Lab Routine Organizing pneumonia (CMS/HCC) (HCC) Expected: 06/07/2024 (Approximate), Expires: 06/07/2025 [facility] [employer]helter Comment on above: Expected: 06/07/2024 (Approximate), Expires: 06/07/2025 Start: 06-07-2024 End: 06-07-2025 SJOGREN'S ANTIBODIES (SS-A,SS-B) ([facility]) Sjogren's Antibodies (SS-A,SS-B) ([facility]) Lab Routine Organizing pneumonia (CMS/HCC) (HCC) Expected: 06/07/2024 (Approximate), Expires: 06/07/2025 [facility] [employer]ter Comment on above: Expected: 06/07/2024 (Approximate), Expires: 06/07/2025 Start: 06-01-2024 End: 06-01-2024 Patient encounter procedure [facility] Photo[facility]helter Medical [facility] Cardiology Start: 05-27-2024 End: 05-27-2024 Patient encounter procedure 05/27/2024 11:30 AM EDT Appointment [facility] CT Imaging [address] [place] [address] NataliaMckayla Wrensea, [address] [address] [facility] CT Imaging Start: 05-26-2024 End: 03-11-2025 CT Chest WO contrast CT chest wo IV contrast Imaging Routine Organizing pneumonia (CMS/HCC) (HCC) History of tobacco use Pulmonary nodules Expected: 05/26/2024, Expires: 03/11/2025 [facility] [employer] System Work Phone: Comment on above: Expected: 05/26/2024 , Expires: 03/11/2025 Start: 05-05-2024 End: 05-05-2024 Admission to same day surgery center [facility] Lab Comment on above: Ablation atrial fibr illation [62530 (CPT )] Start: 05-05-2024 Subsequent hospital visit by physician [facility] Cath/EP Lab Comment on above: Persistent atrial fi brillation (HCC) Start: 05-02-2024 End: 05-02-2024 Patient encounter procedure [facility] Vascular Lab Start: 04-29-2024 End: 04-29-2024 Clinical Support 04/29/2024 1:00 PM EDT Clinical Support [facility] SLEEP [facility] [address] [place] [phone] Kristy Doran, DEWATERER OPERATOR - WINDOWS TECHNICAL SPECIALIST [address] [facility] [place] [address] [facility] Start: 04-22-2024 Screening for malign ant neoplasm of breast Mammography BRCA Positive [facility] Start: 04-17-2024 COVID-19 Vaccine ( season) COVID-19 Vaccine () [facility] Start: 04-17-2024 COVID-19 Vaccine () COVID-19 Vaccine () [facility] Start: 04-17-2024 Influenza vaccination Influenza Vacc ine (#1) [facility] Start: 04-17-2024 Screening for malign ant neoplasm of breast Mammography BRCA Positive [facility] Start: 04-15-2024 End: 04-15-2025 CBC panel - Blood by Automated count CBC Lab Routine PAF (paroxysmal atrial fibrillation) (HCC) Expected: 04/15/2024 (Approximate), Expires: 04/15/2025 [facility] [employer] Comment on above: Expected: 04/15/2024 (Approximate), Expires: 04/15/2025 Start: 04-15-2024 End: 04-15-2025 Comprehensive metabolic 1998 panel - Serum or Plasma Comprehensive metabolic panel Lab Routine PAF (paroxysmal atrial fibrillation) (HCC) Expected: 04/15/2024 (Approximate), Expires: 04/15/2025 [facility] [employer] System Work Phone: Comment on above: Expected: 04/15/2024 (Approximate), Expires: 04/15/2025 Start: 04-15-2024 End: 04-15-2024 Patient encounter procedure 04/15/2024 9:00 AM EDT Office Visit [facility] Cardiology [address] [place] [phone] Walt Leigh MD [address] [place] [address] [facility] Cardiology Start: 04-09-2024 Hemoglobin A1c measurement Diabetes: Hemoglobin A1C [facility] Start: 03-11-2024 End: 03-11-2024 Patient encounter procedure 03/11/2024 11:00 AM EDT Office Visit [facility] Pulmonary Care [address] [place] [phone] Stephanie Arana, DO [address] [place] [address] [facility] Start: 02-24-2024 End: 12-07-2024 CT Chest WO contrast [facility] Work Phone: Comment on above: Expected: 02/24/2024 , Expires: 12/07/2024 Once for 1 Occurrenc es starting 02/24/2024 until 02/24/2024 Start: 02-24-2024 End: 02-24-2024 Patient encounter procedure 02/24/2024 11:30 AM EDT Appointment [facility] CT Imaging [address] [place] [phone] Stephanie Arana, DO [address] [place] [address] [facility] CT Imaging Start: 02-15-2024 End: 02-15-2024 Patient encounter procedure 02/15/2024 1:30 PM EDT Office Visit [facility] Cardiology [address] [facility] [address] [place] [phone] Kristy Doran, DEWATERER OPERATOR - WINDOWS TECHNICAL SPECIALIST [address] [facility] [place] [phone] [facility] Cardiology Start: 02-10-2024 End: 02-10-2024 Patient encounter procedure 02/10/2024 9:00 AM EDT Appointment [facility] Non-Invasive Cardiology [address] [place] [address] Lien Craft MD [address] [place] [address] [facility] Non-Invasive Cardiology Start: 02-09-2024 End: 02-09-2024 Clinical Support 02/09/2024 1:00 PM EDT Clinical Support [facility] Cardiology [address] [place] [address] [address] [place] [address] [facility] Cardiology Start: 02-08-2024 End: 01-31-2025 Comprehensive metabolic 1998 panel - Serum or Plasma Comprehensive metabolic panel Lab Routine Chronic systolic heart failure (HCC) Expected: 02/08/2024 (Approximate), Expires: 01/31/2025 [facility] Comment on above: Expected: 02/08/2024 (Approximate), Expires: 01/31/2025 Start: 02-03-2024 End: 02-02-2025 Comprehensive metabolic 2000 panel - Serum or Plasma Comprehensive metabolic panel Lab Routine Elevated liver enzymes Expected: 02/03/2024 (Approximate), Expires: 02/02/2025 [facility] Service Area Work Phone: Comment on above: Expected: 02/03/2024 (Approximate), Expires: 02/02/2025 Start: 02-03-2024 End: 02-03-2024 Patient encounter procedure 02/03/2024 9:20 AM EDT Office Visit [facility] [address] [place] [phone] Celia Al DO [address] [facility], [address] [place] [address] [facility] Start: 02-02-2024 End: 02-01-2026 Cardioversion external Cardioversion external CV Cardiac Services Routine PAF (paroxysmal atrial fibrillation) (HCC) Expected: 02/02/2024 (Approximate), Expires: 02/01/2026 [facility] Work Phone: Comment on above: Expected: 02/02/2024 (Approximate), Expires: 02/01/2026 Start: 02-01-2024 End: 01-31-2025 Home sleep test Home sleep test Sleep Center Routine PAF (paroxysmal atrial fibrillation) (HCC) Chronic systolic heart failure (HCC) INGA (obstructive sleep apnea) Expected: 02/01/2024 (Approximate), Expires: 01/31/2025 [employer] Work Phone: Comment on above: Expected: 02/01/2024 (Approximate), Expires: 01/31/2025 Start: 02-01-2024 End: 01-31-2025 Natriuretic peptide B [Mass/volume] in Blood NT PRO BNP Lab Routine Chronic systolic heart failure (HCC) Expected: 02/01/2024 (Approximate), Expires: 01/31/2025 [facility] Photo[employer]helter Comment on above: Expected: 02/01/2024 (Approximate), Expires: 01/31/2025 Start: 02-01-2024 End: 02-01-2024 Patient encounter procedure 02/01/2024 10:30 AM EDT Office Visit [facility] Cardiology [address] [facility] [address] [place] [address] Kristy Doran, DEWATERER OPERATOR - WINDOWS TECHNICAL SPECIALIST [address] [facility] [place] [address] [facility] Cardiology Start: 12-19-2023 Screening for malign ant neoplasm of breast Mammography BRCA Positive [facility] Start: 12-16-2023 Screening for malign ant neoplasm of breast Mammography BRCA Positive [facility] Start: 12-04-2023 End: 12-04-2023 Patient encounter procedure 12/04/2023 10:45 AM EDT Office Visit [facility] Pulmonary Care [address] [place] [address] Stephanie Arana, [address] [place] [address] [facility] Start: 11-25-2023 End: 11-25-2023 Patient encounter procedure 11/25/2023 11:30 AM EDT Appointment [facility] CT Imaging [address] [place] [phone] Stephanie Arana, DO [address] [place] [address] [facility] CT Imaging Start: 11-24-2023 End: 10-13-2024 CT Chest WO contrast CT chest wo IV contrast Imaging Routine Organizing pneumonia (CMS/HCC) (HCC) Pulmonary nodules Expected: 11/24/2023, Expires: 10/13/2024 [facility] Work Phone: Comment on above: Expected: 11/24/2023 , Expires: 10/13/2024 Start: 11-24-2023 End: 11-24-2023 Patient encounter procedure 11/24/2023 1:00 PM EDT Office Visit [facility] [address] [facility] [address] [place] [phone] Celia Al, [address] [facility], [address] [place] [address] [facility] Start: 11-09-2023 End: 11-09-2023 Patient encounter procedure 11/09/2023 1:00 PM EDT Office Visit [facility] [address] [facility] [address] [place] [phone] Celia Al DO [address] [facility], [address] [place] [address] [facility] Start: 11-06-2023 Medicare Annual Well ness Visit Medicare Annual Wellness Visit (AWV) [facility] Start: 10-29-2023 End: 10-29-2023 Patient encounter procedure [facility] Pulm Function Test Start: 10-29-2023 Subsequent hospital visit by physician 10/29/2023 8:00 AM EDT Hospital Encounter [facility] Pulm Function Test [address] [facility] [place] [address] Stephanie Arana, [address] [place] [address] [facility] Pulm Function Test Start: 10-17-2023 Lipid panel Lipid Panel [facility] Start: 10-16-2023 End: 10-16-2023 Patient encounter procedure 10/16/2023 1:40 PM EST Office Visit [facility] [address] [facility] [address] [place] [phone] Celia Al, DO [address] [facility], [address] [place] [address] [facility] Start: 10-13-2023 End: 10-13-2023 Telemedicine consultation with patient 10/13/2023 9:00 AM EST Telemedicine [facility] Pulmonary and Sleep Medicine [address] [place] [address] Stephanie Arana, [address] [place] [address] [facility] Start: 10-05-2023 COVID-19 Vaccine ( season) COVID-19 Vaccine ( season) [facility] Start: 10-05-2023 COVID-19 Vaccine (7 - Pfizer series) COVID-19 Vaccine (7 - Pfizer series) [facility] Start: 10-05-2023 End: 10-05-2023 Admission to same day surgery center [facility] Endoscopy Comment on above: ELECTROMAGNETIC MISSY GATIONAL BRONCHOSCOPY, : ENDOBRONCHIAL ULTRASOUND BRONCHOSCOPY WITH X-RAY [46006 (CPT )] Start: 10-05-2023 End: 10-05-2023 [facility]/tx intervention perph les [facility] Gastroenterology Start: 10-05-2023 End: 10-05-2023 Bronchoscopy w/cptr-asst image-guided navigation [facility] Gastroenterology Start: 10-05-2023 Subsequent hospital visit by physician [facility] Endoscopy Start: 09-29-2023 End: 09-29-2024 Complete PFT pre and post bronchodilator Complete PFT pre and post bronchodilator PFT Routine Tobacco use CRUZ (dyspnea on exertion) Expected: 09/29/2023 (Approximate), Expires: 09/29/2024 [facility] Work Phone: Comment on above: Expected: 09/29/2023 (Approximate), Expires: 09/29/2024 Start: 09-29-2023 End: 09-29-2023 Patient encounter procedure 09/29/2023 10:45 AM EST Office Visit [facility] Pulmonary and Sleep Medicine [address] [place] [phone] Stephanie Arana, [address] [place] [address] [facility]monary [facility] Sleep Medicine Start: 09-25-2023 End: 09-25-2023 Patient encounter procedure 09/25/2023 11:15 AM EST Office Visit [facility] [place] [address] [place] [phone] Keven Marcus MD [address] [place] [address] [facility] [place] Start: 09-17-2023 End: 09-17-2023 Patient encounter procedure 09/17/2023 10:00 AM EST Appointment [address] [phone] Keven Marcus MD [address] [place] [address] [facility] [facility] Start: 08-28-2023 End: 08-28-2023 Patient encounter procedure 08/28/2023 1:00 PM EST Office Visit [facility] [address] [facility] [address] [place] [address] Servando Celia N, [address] [facility], [address] [place] [address] [facility] Start: 08-26-2023 End: 08-26-2024 PET+CT Bone from skull base to mid-thigh W [id number] IV PET/CT skull base to mid thigh Imaging Routine Malignant neoplasm of left breast in female, estrogen receptor negative, unspecified site of breast (HCC) Lung nodules Expected: 08/26/2023, Expires: 08/26/2024 [facility] Work Phone: Comment on above: Expected: 08/26/2023 , Expires: 08/26/2024 Start: 08-26-2023 End: 08-26-2023 Patient encounter procedure 08/26/2023 11:15 AM EST Office Visit [facility] [place] [address] [place] [phone] Keven Marcus MD [address] [place] [address] [facility] [place] Start: 08-24-2023 End: 08-24-2023 Patient encounter procedure 08/24/2023 11:30 AM EST Appointment [facility] CT Imaging [address] [place] [address] Keven Marcus MD [address] [place] [address] [facility] CT Imaging Start: 08-17-2023 Advance Directive Discussion Advance Directive Discussion [facility] Start: 08-17-2023 Depression Assessment Depression Ass essment [facility] Start: 08-17-2023 Medicare Advantage Annual Wellness Visit Medicare Advantage Annual Wellness Visit [facility] Start: 05-07-2023 End: 05-07-2023 Patient encounter procedure 05/07/2023 1:00 PM EDT Office Visit [facility] Cardiology [address] [facility] [address] [place] [phone] Rashi Jerome MD [address] [facility] [place] [phone] [facility] Cardiology Start: 04-22-2023 End: 04-22-2024 CT Chest WO contrast CT chest wo IV contrast Imaging Routine Malignant neoplasm of left breast in female, estrogen receptor negative, unspecified site of breast (HCC) Expected: 04/22/2023, Expires: 04/22/2024 [facility] Photo[employer]helter [facility] Work Phone: Comment on above: Expected: 04/22/2023 , Expires: 04/22/2024 Start: 04-22-2023 End: 04-22-2023 Patient encounter procedure [facility] [place] Start: 04-17-2023 COVID-19 Vaccine ( season) COVID-19 Vaccine () [facility] Start: 04-17-2023 Influenza vaccination Influenza Vacc ine (#1) [facility] Start: 04-17-2023 End: 04-17-2023 Patient encounter procedure [facility] Start: 04-03-2023 End: 04-03-2023 Patient encounter procedure 04/03/2023 1:00 PM EDT Office Visit [facility] Cardiology [address] [facility] [address] [place] [phone] Rashi Jerome MD [address] [facility] [place] [address] [facility] Start: 01-16-2023 Hemoglobin A1c measurement Diabetes: Hemoglobin A1C [facility] Start: 12-18-2022 End: 12-19-2023 CT Chest WO contrast CT chest wo IV contrast Imaging Routine Malignant neoplasm of left breast in female, estrogen receptor negative, unspecified site of breast (HCC) Expected: 12/18/2022, Expires: 12/19/2023 [facility] Work Phone: Comment on above: Expected: 12/18/2022 , Expires: 12/19/2023 Start: 12-18-2022 End: 12-18-2022 Patient encounter procedure 12/18/2022 Office Visit Hematology and Oncology Keven Marcus MD [address] [facility] [address] [facility] [address] [place] [address] [facility] [place] Start: 11-04-2022 Patient encounter procedure MCRANNUAL, Provider: Celia Al, Status: Pen, Time: 1:40 PM [facility] Work Phone: Start: 11-04-2022 End: 05-07-2024 Colonoscopy Colonoscopy Endoscopy Routine Healthcare maintenance Expected: 11/04/2022 (Approximate), Expires: 05/07/2024 [facility] Service Area Work Phone: Comment on above: Expected: 11/04/2022 (Approximate), Expires: 05/07/2024 Start: 11-04-2022 End: 11-04-2022 Patient encounter procedure 11/04/2022 1:40 PM EDT Office Visit [facility] [address] [facility] [address] [place] [address] Celia Al N, DO [address] [facility], [address] [place] [address] [facility] Start: 09-23-2022 End: 09-23-2022 Patient encounter procedure 09/23/2022 Office Visit Cardiology Kristy Doran, DEWATERER OPERATOR - WINDOWS TECHNICAL SPECIALIST [address] [facility] [place] [phone] [facility] Start: 09-18-2022 End: 09-18-2022 Patient encounter procedure 09/18/2022 Appointment Cardiology [facility] [address] [facility] Start: 09-08-2022 End: 09-01-2024 US Heart Transthoracic Transthoracic echocardiogram (TTE) complete with contrast, bubble, strain, and 3D PRN CV Echocardiography Routine Syncope and collapse Palpitations Essential hypertension Expected: 09/08/2022 (Approximate), Expires: 09/01/2024 [facility] [employer] System Work Phone: Comment on above: Expected: 09/08/2022 (Approximate), Expires: 09/01/2024 Start: 08-27-2022 EPV, Provider: Celia Al, Status: Pen, Time: 11:00 AM EPV, Provider: Celia Al, Status: Esteban, Time: 11:00 AM [facility] Work Phone: Start: 04-17-2022 Influenza vaccination Flu vaccine (# 1) [facility] Start: 11-01-2021 Patient encounter procedure MCRANNUAL, Provider: Celia Al, Status: Pen, Time: 1:00 PM [facility] Work Phone: Start: 08-09-2021 Glaucoma screening Diabetes: R etinopathy Screening [facility] Start: 06-14-2021 Lipid panel [facility] Start: 05-21-2021 DTaP/Tdap/Td Vaccine s (1 - Tdap) DTaP/Tdap/Td Vaccines (1 - Tdap) [facility] Start: 05-21-2021 Urine microalbumin profile DTaP,Tdap,Td Vaccine (1 - Tdap) [facility] Start: 04-17-2021 Influenza vaccination Flu vaccine (# 1) [facility] Work Phone: Start: 2021 RSV Immunization for Adults (1 - 1-dose 75+ series) RSV Immunization for Adults (1 - 1-dose 75+ series) [facility] Start: 10-22-2020 Screening for osteoporosis Bone Density Scan [facility] Start: 09-20-2020 Hemoglobin A1c measurement A1C test (Diabetic or Prediabetic) [facility] Start: 08-22-2020 Lipid panel Lipid screen [facility] [place] Start: 05-14-2020 End: 05-14-2020 Office Visit 05/14/2020 Office Visit Cardiology Kristy Doran, DEWATERER OPERATOR - WINDOWS TECHNICAL SPECIALIST [address] [facility] [place] [address] [facility] Start: 04-17-2020 Influenza vaccination Flu vaccine (# 1) [place], [place] Start: 10-31-2019 MG Breast screening Mamm - Scr eening Mammogram w/ [facility] Work Phone: Start: 10-23-2019 Screening for osteoporosis Bone Density Scan [facility] Start: 02-06-2019 Annual Wellness Visi t (AWV) Annual Wellness Visit (AWV) [facility] Start: 03-04-2018 End: 03-04-2018 Mri spinal canal lumbar w/o contrast material MRI lumbar without contrast [facility] Work Phone: Start: 03-04-2018 End: 03-04-2018 Radex spine lumbosacral minimum 4 views XR LUMBAR 4VWS FLEX/EX [facility] Work Phone: Start: 04-30-2012 Pneumococcal 65+ yea rs Vaccine (2 - PCV) Pneumococcal 65+ years Vaccine (2 - PCV) [facility] Start: 04-30-2012 Pneumococcal vaccination Pneum ococcal Vaccine (2 of 2 - PCV) [facility] Start: 04-30-2012 Pneumococcal Vaccine : 50+ (2 of 2 - PCV) Pneumococcal Vaccine: 50+ (2 of 2 - PCV) [facility] Start: 04-30-2012 Pneumococcal Vaccine : 50+ Years (2 of 2 - PCV) Pneumococcal Vaccine: 50+ Years (2 of 2 - PCV) [facility] Start: 04-30-2012 Pneumococcal Vaccine : 65+ (2 of 2 - PCV) Pneumococcal Vaccine: 65+ (2 of 2 - PCV) [facility] Start: 04-30-2012 Pneumococcal Vaccine : 65+ Years (2 - PCV) Pneumococcal Vaccine: 65+ Years (2 - PCV) [facility] Start: 04-30-2012 Pneumococcal Vaccine : 65+ Years (2 of 2 - PCV) Pneumococcal Vaccine: 65+ Years (2 of 2 - PCV) [facility] Start: 01-07-2011 DTaP/Tdap/Td Vaccine s (2 - Tdap) DTaP/Tdap/Td Vaccines (2 - Tdap) [facility] Start: 12-11-2010 DTaP/Tdap/Td vaccine (1 - Tdap) DTaP/Tdap/Td vaccine (1 - Tdap) [facility] Start: 12-11-2010 DTaP/Tdap/Td Vaccine s (1 - Tdap) DTaP/Tdap/Td Vaccines (1 - Tdap) [facility] Start: 12-11-2010 Urine microalbumin profile DTaP,Tdap,Td Vaccine (1 - Tdap) [facility] Start: 2006 Hepatitis B Vaccines (1 of 3 - Risk 3-dose series) Hepatitis B Vaccines (1 of 3 - Risk 3-dose series) [facility] Start: 2006 RSV Immunization age d 60 or older (1 - 1-dose 60+ series) RSV Immunization aged 60 or older (1 - 1-dose 60+ series) [facility] Start: 01-11-1996 Screening for malign ant neoplasm of colon Colon cancer screen colonoscopy [place] Start: 01-11-1996 Shingles Vaccine (1 of 2) Shingles Vaccine (1 of 2) [facility] Start: 01-11-1996 Shingrix Vaccine (1 of 2) Shingrix Vaccine (1 of 2) [facility] Start: 01-11-1996 Zoster Vaccines (1 of 2) Zoste r Vaccines (1 of 2) [facility] Start: 1991 Screening for malign ant neoplasm of colon [facility] Start: 1965 DTaP/Tdap/Td vaccine (1 - Tdap) DTaP/Tdap/Td vaccine (1 - Tdap) [facility] Start: 1965 Hepatitis A Vaccines (1 of 2 - Risk 2-dose series) Hepatitis A Vaccines (1 of 2 - Risk 2-dose series) [facility] Start: 1965 Urine screening for protein Diabetes: Urine Protein Screening [facility] Start: 01-11-1964 Annual PCP Team Animal Keeper Head michelle Disease Visit Annual PCP Team Chronic Disease Visit [facility] Start: 01-11-1964 Anxiety Screening Anxiety Screening [facility] Start: 01-11-1964 Depression Screening Depression Scre ening [facility] Start: 01-11-1964 Diabetic microalbuminuria test Diabetic microalbuminuria test [place], [place] Start: 01-11-1964 Diabetic retinal exam Diabetic retin al exam [facility] Start: 01-11-1964 Hepatitis C screening [facility] Start: 1958 Depression Screen Depression Screen [facility] Start: 1958 Depression Screening Depression Scre ening [facility] Start: 01-11-1956 Diabetic foot examination [facility] Start: 01-11-1956 Diabetic retinal exam Diabetic retin al exam [place], [place] Start: 01-11-1956 Glaucoma screening [facility] Start: 01-11-1956 HbA1c (Bld) [Mass fraction] A1C test (Diabetic or Prediabetic) [place], [place] Start: 01-11-1956 Hemoglobin A1c measurement A1C test (Diabetic or Prediabetic) [facility] Work Phone: Start: 01-11-1956 Ophthalmic examinati on and evaluation Diabetes: Retinopathy Screening [facility] Start: 01-11-1956 Preventive dental service Diabetes: Dental Exam [facility] Start: 1946 Annual Wellness Visi t (AWV) Annual Wellness Visit (AWV) [facility] Start: 1946 Creatinine measurement Creatinine mo nitoring [place], [place] Start: 1946 Echocardiography E[facility]ocardiogram [facility] Start: 1946 Hemoglobin A1c measurement Diabetes: Hemoglobin A1C [facility] Start: 1946 Hepatitis B Vaccines (1 of 3 - 3-dose series) Hepatitis B Vaccines (1 of 3 - 3-dose series) [facility] Start: 1946 Hepatitis C screening Hepatitis C sc reen [place], [place] Start: 1946 Medicare Advantage Annual Wellness Visit (AWV) Medicare Advantage Annual Wellness Visit (AWV) [facility] Start: 1946 Medicare Annual Well ness Visit Medicare Annual Wellness Visit (AWV) [facility] Start: 1946 Potassium monitoring Potassium monit oring [place], [place] Start: 1946 Screening for osteoporosis Bone Density Scan [facility] Start: 1946 Yearly Adult Physical Yearly Adult P hysical [facility] End: 08-29-2024 Aerobic and Anaerobic Culture with Stain [facility] Comment on above: Once (Lab) for 1 Occ urrences starting 08/29/2024 until 08/29/2024 Aspergillus Galactomannan To [facility] #[id number] - Miscellaneous Test [facility] Bacteria identified in Lower respiratory specimen by Aerobe culture [facility] Bacteria identified in Unspecified specimen by Aerobe culture Culture, Aerobic Bacteria with Gram Stain Microbiology Pending Discharge 08/29/2024 2:18 PM EST [facility] End: 08-29-2024 Bacteria identified in Unspecified specimen by Anaerobe culture [facility] Comment on above: Once for 1 Occurrenc es starting 08/29/2024 until 08/29/2024 End: 04-17-2023 CT Chest WO contrast [facility] Work Phone: Comment on above: Once for 1 Occurrenc es starting 04/17/2023 until 04/17/2023 End: 11-25-2023 CT Chest WO contrast [facility] Work Phone: Comment on above: Once for 1 Occurrenc es starting 11/25/2023 until 11/25/2023 End: 08-24-2023 CT Chest WO contrast [facility] Work Phone: Comment on above: Once for 1 Occurrenc es starting 08/24/2023 until 08/24/2023 End: 05-27-2024 CT Chest WO contrast [facility] Work Phone: Comment on above: Once for 1 Occurrenc es starting 05/27/2024 until 05/27/2024 End: 10-19-2024 CT Chest WO contrast [facility] Work Phone: Comment on above: Once for 1 Occurrenc es starting 10/19/2024 until 10/19/2024 ECG 12 lead ECG 12 lead CV E CG STAT 05/05/2024 3:33 PM EDT [facility] Work Phone: ECG 12 lead ECG 12 lead CV E CG Routine Heart failure with improved ejection fraction (HFimpEF) ([facility]) 11/07/2024 10:37 AM EDT [facility] Work Phone: ECG 12 lead - CLINIC PERFORMED ECG 12 lead - CLINIC PERFORMED CV ECG Routine PAF (paroxysmal atrial fibrillation) ([facility]) 02/15/2024 1:37 PM EDT [facility] Work Phone: ECG 12 lead - CLINIC PERFORMED ECG 12 lead - CLINIC PERFORMED CV ECG Routine PAF (paroxysmal atrial fibrillation) ([facility]) 09/16/2024 1:07 PM EST [facility] Work Phone: Ephys evl trnsptl tx atrial fib isolat pulm vein ABLATION A-FIB PERSISTENT W COMPLETE EP STUDY Persistent atrial fibrillation ([facility]) [facility] Cardiac Cath Labs Fungus identified in Unspecified specimen by Culture [facility] Work Phone: Comment on above: Release Upon Orderin g for 1 Occurrences starting 10/05/2023 H&P for surgery H&P FOR SURGERY Procedures Routine Spinal stenosis of cervical region Ordered: 02/23/2025 [facility] Work Phone: Comment on above: Ordered: 02/23/2025 End: 02-17-2026 MR Cervical spine WO contrast MRI CERVICAL SPINE WO IVCON Radiology Routine Spinal stenosis of cervical region 1 Occurrences starting 01/18/2025 until 02/17/2026 [facility] Comment on above: 1 Occurrences starti ng 01/18/2025 until 02/17/2026 MR Cervical spine WO contrast MRI CERVICAL SPINE WO IVCON Radiology Routine Spinal stenosis of cervical region 02/01/2025 3:21 PM EDT [facility] Work Phone: End: 02-17-2026 MR Lumbar spine WO contrast MRI LUMBAR SPINE WO IVCON Radiology Routine Spinal stenosis of lumbar region with neurogenic claudication 1 Occurrences starting 01/18/2025 until 02/17/2026 [facility] Comment on above: 1 Occurrences starti ng 01/18/2025 until 02/17/2026 MR Lumbar spine WO contrast MRI LUMBAR SPINE WO IVCON Radiology Routine Spinal stenosis of lumbar region with neurogenic claudication 02/01/2025 3:54 PM EDT [facility] Work Phone: Mycobacterium sp identified in Unspecified specimen by Organism specific culture [facility] End: 08-29-2024 Non-Gynecologic Cytology [facility] Sy [facility] Work Phone: Comment on above: Once (Lab) for 1 Occ urrences starting 08/29/2024 until 08/29/2024, 1 completed Nuclear REGADENOSON stress test with myocardial perfusion Nuclear REGADENOSON stress test with myocardial perfusion CV Stress/Nuc Med Routine PAF (paroxysmal atrial fibrillation) (HCC) 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) Essential hypertension Coronary artery calcification 01/16/2025 2:01 PM EDT [facility] Work [facility]: Tissue exam [facility] Comment on above: Release Upon Orderin g for 1 Occurrences starting 10/05/2023, 1 completed End: 12-25-2021 US RETROPERITONEAL LIMITED [facility] Work Phone: Comment on above: Once for 1 Occurrenc es starting 12/25/2021 until 12/25/2021 Vascular US carotid artery duplex bilateral Vascular US carotid artery duplex bilateral CV Vascular Ultrasound Routine Bilateral carotid artery stenosis 03/23/2023 2:11 PM EDT [facility] Work Phone: VL DUP CAROTID BILATERAL VL DUP CAROTID BILATERAL Imaging Routine Carotid stenosis, left 04/27/2020 2:31 PM EDT [place] End: 01-08-2024 XR Ankle - left 3 Views [facility] Work Phone: Comment on above: Once for 1 Occurrenc es starting 01/08/2024 until 01/08/2024 XR CERV OTHER 4V AP/LAT/FLX/EXT XR CERV OTHER 4V AP/LAT/FLX/EXT Radiology Routine Spinal stenosis of cervical region 02/01/2025 3:01 PM EDT [facility] Work Phone: End: 10-12-2024 XR Chest 2 Views [facility] Service [facility] Work Phone: Comment on above: Once for 1 Occurrenc es starting 10/12/2024 until 10/12/2024 End: 02-10-2026 XR Thoracic and lumbar spine Views for scoliosis W standing XR SCOLIOSIS PA STAND/LAT 2V Radiology Routine Lumbar stenosis with neurogenic claudication 1 Occurrences starting 01/11/2025 until 02/10/2026 [facility] Work Phone: Comment on above: 1 Occurrences starti ng 01/11/2025 until 02/10/2026 XR Thoracic and lumb ar spine Views for scoliosis W standing XR SCOLIOSIS PA STAND/LAT 2V Radiology Routine Lumbar stenosis with neurogenic claudication 01/18/2025 8:30 AM EDT [facility] NEGATED: Highlighted row has been ruled out! Planned Goals not documented [facility] Work Phone: Immunizations Immunization Date Immunization Notes Care Provider Fa [facility] 06-02-2024 Moderna SARS-CoV-2 Booster Celia Al DO Work Phone: [facility] 06-02-2024 influenza virus vaccine, unspecified formulation Celia Al DO Work Phone: [facility] Work Phone: 06-25-2023 RSV, 60 Years And Ol olivia (AREXVY) Celia Al DO Work Phone: [facility] 05-21-2023 Influenza, Seasonal, Quadrivalent, Adjuvanted Ahu 1 [facility] Work Phone: 05-21-2023 influenza virus vaccine, unspecified formulation Kristy Doran APRN - WINDOWS TECHNICAL SPECIALIST Work Phone: [facility] [employer] 06-02-2022 influenza virus vaccine, unspecified formulation Celia Al Work Phone: [facility] Work Phone: Comment on above: Series: 06-02-2022 Influenza, High-dose Seasonal, Quadrivalent, Preservative Free Keven Priest MD Work Phone: [facility] 06-02-2022 Pfizer COVID-19 Vac Bivalent 30 MCG/0.3ML Intramuscular Suspension Celia Al Work Phone: [facility] [employer] Work Phone: 06-02-2022 Pfizer-BioNTech COVID-19 Vacc 30 MCG/0.3ML Intramuscular Suspension Celia Al Work Phone: [facility] Work Phone: Comment on above: Series: 01-01-2022 Comirnaty 30 MCG/0.3 ML Intramuscular Suspension Celia Al Work Phone: [facility] Work Phone: 01-01-2022 Pfizer-BioNTech COVID-19 Vacc 30 MCG/0.3ML Intramuscular Suspension Celia Al Work Phone: [facility] Work Phone: Comment on above: Series: 01-01-2022 SARS-CoV-2, Unspecified Rich armida Lopez PharmD Work Phone: [facility] Work Phone: 07-10-2021 Pfizer-BioNTech COVID-19 Vacc 30 MCG/0.3ML Intramuscular Suspension Celia Al Work Phone: [facility] 05-20-2021 tetanus and diphther ia toxoids, adsorbed, preservative free, for adult use (2 Lf of tetanus toxoid and 2 Lf of diphtheria toxoid) [address] Work Phone: 05-18-2021 influenza virus vaccine, unspecified formulation; Translations: [Influenza] Celia Al Work Phone: [facility] Work Phone: Comment on above: Series: 05-18-2021 influenza, seasonal, injectable Celia Al Work Phone: [facility] Work Phone: Comment on above: Series: 05-17-2021 Fluad Quadrivalent 0 .5 ML Intramuscular Prefilled Syringe Celia Al Work Phone: [facility] Work Phone: 10-23-2020 Pfizer-BioNTech COVID-19 Vacc 30 MCG/0.3ML Intramuscular Suspension Celia Al [facility] Comment on above: Series: 10-02-2020 Pfizer-BioNTech COVID-19 Vacc 30 MCG/0.3ML Intramuscular Suspension Celia Al [facility] Comment on above: Series: 09-17-2020 Pfizer-BioNTech COVID-19 Vacc 30 MCG/0.3ML Intramuscular Suspension Celia Al Work Phone: [facility] Work Phone: 06-07-2020 influenza virus vaccine, unspecified formulation; Translations: [Influenza] Celia Al Work Phone: [facility] Work Phone: Comment on above: Series: 06-07-2020 influenza, seasonal, injectable; Translations: [Influenza] Ryan Gerard [facility] Work Phone: 05-29-2020 Fluad Quadrivalent 0 .5 ML Intramuscular Prefilled Syringe Celia Christi Al Work Phone: [facility] Work Phone: 05-09-2020 Influenza, FLUAD, (a ge 65 y+), Adjuvanted, 0.5mL Rashi Jerome MD Work Phone: [facility] Work Phone: 05-25-2019 influenza, injectabl e, quadrivalent, preservative free; Translations: [Fluarix Quadrivalent 0.5 ML Intramuscular Suspension Prefilled Syringe] Celia Al [facility] Work Phone: Comment on above: Series: 06-24-2018 influenza, injectabl e, quadrivalent, preservative free; Translations: [Fluarix Quadrivalent 0.5 ML Intramuscular Suspension Prefilled Syringe] Celia Al [facility] Work Phone: Comment on above: Series: 05-15-2017 influenza, injectabl e, quadrivalent, preservative free; Translations: [Fluarix Quadrivalent 0.5 ML Intramuscular Suspension Prefilled Syringe] Celia Al [facility] Work Phone: Comment on above: Series: 05-05-2016 influenza, injectabl e, quadrivalent, preservative free; Translations: [Fluarix Quadrivalent 0.5 ML SUSP] Celia Al [facility] Work Phone: Comment on above: Series: 05-05-2016 influenza virus vaccine, unspecified formulation Rashi Jerome MD Work Phone: [facility] Work Phone: 05-16-2015 influenza, injectabl e, quadrivalent, preservative free; Translations: [Fluarix Quadrivalent 0.5 ML SUSP] Celiaautumn Al [facility] Work Phone: Comment on above: Series: 05-16-2015 influenza virus vaccine, unspecified formulation Rashi Jerome MD Work Phone: [facility] Work Phone: 05-09-2014 influenza virus vaccine, unspecified formulation Rashi Jerome MD Work Phone: [facility] Work Phone: 05-09-2014 influenza, injectabl e, quadrivalent, preservative free; Translations: [Fluarix Quadrivalent 0.5 ML SUSP] Celia Al [facility] Work Phone: Comment on above: Series: 04-28-2013 influenza virus vaccine, unspecified formulation Celia Al Work Phone: [facility] Work Phone: Comment on above: Series: 04-28-2013 influenza, seasonal, injectable Celia Al [facility] 08-05-2012 influenza virus vaccine, unspecified formulation Celia Al Work Phone: [facility] Work Phone: Comment on above: Series: 08-05-2012 influenza, seasonal, injectable Celia Al [facility] Work Phone: 04-30-2011 influenza virus vaccine, unspecified formulation Rashi Jerome MD Work Phone: [facility] Work Phone: 04-30-2011 influenza, seasonal, injectable Celia Al [facility] Work Phone: Comment on above: Series: 04-30-2011 pneumococcal polysaccharide vaccine, 23 valent Celia Al [facility] Work Phone: Comment on above: Series: 12-10-2010 Td, unspecified formulation Rashi Jerome MD Work Phone: [facility] Work Phone: 12-10-2010 tetanus and diphther ia toxoids, adsorbed, preservative free, for adult use (2 Lf of tetanus toxoid and 2 Lf of diphtheria toxoid) Celia Al [facility] Work Phone: Comment on above: Series: 12-10-2010 tetanus and diphther ia toxoids, not adsorbed, for adult use Keven Priest MD Work Phone: [facility] 08-14-2010 influenza virus vaccine, unspecified formulation Rashi Jerome MD Work Phone: [facility] Work Phone: 08-14-2010 influenza, seasonal, injectable Celia Al [facility] Work Phone: Comment on above: Series: 05-19-2009 influenza virus vaccine, unspecified formulation Rashi Jerome MD Work Phone: [facility] Work Phone: 05-19-2009 influenza, seasonal, injectable Celia Al Work Phone: [facility] Work Phone: Comment on above: Series: 05-19-2009 influenza, seasonal, injectable Celia Al [facility] Work Phone: 05-25-2008 influenza virus vaccine, unspecified formulation Rashi Jerome MD Work Phone: [facility] Work Phone: 05-25-2008 influenza, seasonal, injectable Celia Al Work Phone: [facility] Work Phone: Comment on above: Series: 05-25-2008 influenza, seasonal, injectable Celia Al [facility] Work Phone: 07-27-2007 influenza virus vaccine, unspecified formulation Rashi Jerome MD Work Phone: [facility] Work Phone: 07-27-2007 influenza, seasonal, injectable Celia Al [facility] Work Phone: Comment on above: Series: 07-01-2006 influenza virus vaccine, unspecified formulation Rashi Jerome MD Work Phone: [facility] Work Phone: 07-01-2006 influenza, seasonal, injectable Celia Al [facility] Work Phone: Comment on above: Series: 06-24-2005 influenza virus vaccine, unspecified formulation Rashi Jerome MD Work Phone: [facility] Work Phone: 06-24-2005 influenza, seasonal, injectable Celia Al Work Phone: [facility] Work Phone: Comment on above: Series: 06-24-2005 influenza, seasonal, injectable Celia Al [facility] Work Phone: No information available. [facility] Work Phone: Payers Date Payer Category Payer Self-pay 2022 Medicare [id number] 2022 Medicare (Managed Care) 1.2. [id number] 2022 Medicare O [facility] [id number] 2014 Medicare [id number] [id number]. 2.7.3.618539.315 1946 Unknown [id number] 2.16.840.1.154483.3.579. 2.668 1946 Unknown [id number] 2.16.840.1.630853.3.579. 2.356 1946 Unknown [id number] 2.16.840.1.079422.3.579. 2.356 1946 Unknown [id number] 2.16.840.1.542741.3.579. 2.356 1946 Unknown [id number] 2.16.840.1.229441.3.579. 2.356 1946 Unknown [id number] 2.16.840.1.759541.3.579. 2.356 1946 Unknown [id number] 2.16.840.1.947057.3.579. 2.356 1946 Unknown [id number] 2.16.840.1.106125.3.579. 2. 1946 Unknown [id number] 2.16.840.1.749155.3.579. 2.356 1946 Unknown [id number] 2.16.840.1.022479.3.579. 2.1241 1946 Unknown [id number] 2.16.840.1.783713.3.579. 2.1241 1946 Unknown [id number] 2.16.840.1.745912.3.579. 2.1244 1946 Unknown [id number] 2.16840.1.984044.3.579. 2.1244 1946 Unknown [id number] 2.16840.1.549808.3.579. 2.1244 1946 Unknown [id number] 2.16.840.1.889685.3.579. 2.1244 1946 Unknown [id number] 2.16.840.1.338392.3.579. 2.1244 1946 Unknown [id number] 2.16840.1.687263.3.579. 2.1244 1946 Unknown [id number] 2.16.840.1.179972.3.579. 2.1244 1946 Unknown [id number] 2.16.840.1.276304.3.579. 2.1244 1946 Unknown [id number] 2.16.840.1.826205.3.579. 2.1244 1946 Unknown [id number] 2.16.840.1.718524.3.579. 2.12446 Unknown [id number] 2.16.840.1.124913.3.579. 2.1244 1946 Unknown [id number] 2.16.840.1.240463.3.579. 2.1244 1946 Unknown [id number] 2.16.840.1.482984.3.579. 2.1243 1946 Unknown [id number] 2.16.840.1.015040.3.579. 2.1243 1946 Unknown [id number] 2.16.840.1.818870.3.579. 2.1243 1946 Unknown [id number] 2.16.840.1.078000.3.579. 2.1243 1946 Unknown [id number] 2.16840.1.883052.3.579. 2.1243 1946 Unknown [id number] 2.16840.1.244864.3.579. 2.1243 1946 Unknown [id number] 2.16840.1.798970.3.579. 2.1243 1946 Unknown [id number] 2.16.840.1.996819.3.579. 2.1243 1946 Unknown [id number] 2.16840.1.948805.3.579. 2.1243 1946 Unknown [id number] 2.16840.1.494504.3.579. 2.1243 1946 Unknown [id number] 2.16840.1.384161.3.579. 2.1244 Unknown Unknown [id number] 2.16840.1.195889.3.579. 2.462 Unknown [id number] 2.16840.1.149221.3.579. 2.462 Social History Date Type Detail Facility Start: 03-05-2018 End: 03-05-2018 Assertion Unknown if ever smoked [facility] Work Phone: Start: 04-13-2020 End: 02-15-2024 Tobacco [facility] status [facility] Start: [facility] End: 08-17-1993 History of tobacco use [facility] Start: 04-13-2020 End: 08-13-2023 Tobacco use and exposure Never used [facility] Start: 04-13-2020 End: 03-10-2025 Alcohol intake Current drinker of alcohol (finding) [place], [place] Start: 1945 Sex Assigned At Not on file [place] Start: 08-22-2022 End: 11-25-2024 Exposure to SARS-CoV-2 (event) Not sure [place], [place] Start: 11-04-2022 End: 02-22-2025 Former smoker Former smoker [facility] Comment on above: quit 1990 [id number] ; Start: 08-17-1963 End: 08-17-1993 History of tobacco use Cigarette Smoker [facility] Work Phone: History of tobacco use Passive smoker [facility] Work Phone: Start: 11-04-2022 End: 02-22-2025 Tobacco use panel [facility] Start: 1945 Sex Assigned At Female [facility] Start: 08-30-2022 Gender identity Identifies as female gender (finding) [facility] Work Phone: Start: 12-02-2022 Tobacco Comment , 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[facility], 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, 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 [facility] Start: 09-01-2022 Alcohol Comment occ [facility] Start: 08-30-2022 Sexual orientation Heterosexua l (finding) [facility] Start: 08-13-2023 End: 03-01-2025 Tobacco smoking status NHIS Never smoked tobacco [facility] Start: 09-16-2023 Alcohol intake Ex-drinker (finding) [facility] National Score (1-10 0), lower number is lower risk 60 [facility] Within the last year , have you been afraid of your partner or ex-partner? No [facility] How often to you hav e a drink containing alcohol? 4 or more times a week [facility] How many standard drinks containing alcohol do you have on a typical day? 1 or 2 [facility] How often do you hav e 6 or more drinks on 1 occasion? Never [facility] (I/We) worried wheth er (my/our) food would run out before (I/we) got money to buy more. Never true [facility] Start: 03-17-2022 Sex Female (finding) [facility] Do you belong to any clubs or organizations such as congregation groups, unions, fraternal or athletic groups, or school groups? Yes [facility] Are you now , , , , never or living with a partner? [facility] How hard is it for y ou to pay for the very basics like food, housing, medical care, and heating Not very hard [facility] Do you feel stress - tense, restless, nervous, or anxious, or unable to sleep at night because your mind is troubled all the time - these days [OSQ] To some extent [facility] How often do you nee d to have someone help you when you read instructions, pamphlets, or other written material from your doctor or pharmacy [SILS] Sometimes [facility] Start: 01-27-2025 Alcohol Comment Wine daily [facility] Work Phone: Start: 03-10-2025 Alcohol Comment 1-2 glasses of wine evening [facility] NEGATED: Highlighted row - - [facility] Work Phone: Medical Equipment Procedure Code Equipment Code Equipment Origin al Text Equipment Identifier Dates [id number] Start: 01-29-2024 [employer]ascade Mvp Xl [id number] Start: 05-05-2024 Device Closure [employer] - [id number] Start: 05-05-2024 Device Closure [employer] - [id number] Start: 05-05-2024 Blood Sugar Diagnostic strip Start: 03-01-2025 Functional Status Date Assessment Result Facility 03-10-2025 Are you deaf, or do you have serious difficulty hearing No 03/10/2025 3:22 PM EDT Eden Lynch APRN.CNP No [facility] 03-10-2025 Are you blind, or do you have serious difficulty seeing, even when wearing glasses No 03/10/2025 3:22 PM EDT Eden Lynch APRN.CNP No [facility] 03-10-2025 Do you have serious difficulty walking or climbing stairs Yes 03/10/2025 3:22 PM EDT Eden Lynch APRN.CNP Yes [facility] 03-10-2025 Do you have difficul ty dressing or bathing No 03/10/2025 3:22 PM EDT Eden Lynch APRN.WINDOWS TECHNICAL SPECIALIST No [facility] 03-10-2025 Because of a physica l, mental, or emotional condition, do you have difficulty doing errands alone such as visiting a physician's office or shopping No 03/10/2025 3:22 PM EDT Eden Lynch APRN.WINDOWS TECHNICAL SPECIALIST No [facility] 01-27-2025 Patient Health Questionnaire 2 item (PHQ-2) [Reported] [facility] Work Phone: 01-17-2025 Total score [AUDIT-C] 0 01/18/20 11:40 AM EDT Precious Rosales, AYO [facility] NEGATED: Highlighted row Functional performance Functional status health issues are not documented Disease [facility] Work Phone: Mental Status Date Assessment Result Facility 03-10-2025 Because of a physical, mental, or emotional condition, do you have serious difficulty concentrating, remembering, or making decisions No 03/10/2025 3:22 PM EDT Eden Lynch APRN.WINDOWS TECHNICAL SPECIALIST No [facility] NEGATED: Highlighted row Cognitive function [Interpretation] Cognitive status health issues are not documented Disease [facility] Work Phone: Clinical Notes 03-20-2021 to 03-10-2025 Eden Lynch APRN.CNP - 03/10/2025 3:22 PM Eden Anthony APRN.WINDOWS TECHNICAL SPECIALIST - 03/10/2025 1:00 PM Eden Anthony APRN.CNP - 03/10/2025 1:00 PM Dominick Rajput MD - 03/10/2025 11:45 AM EDT Note Date & Type Note Facility 03-10-2025 Note HNO ID: [id number] Author: EDEN LYNCH APRN.CNP Service: ? Author Type: Nurse Practitioner Type: Progress Notes Filed: 03/10/2025 15:28 Note Text: Summary: PAT CC SEBASTIAN please review with anesthesia for the following reasons, thank you! 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 METs 2.75 Scheduled 03/30/[address] 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 Jerome TRINITY 12/12/24 EKG 12/12/24 showed Sinus Rhythm in care everywhere EKG today - NSR Essential (primary) hypertension Controlled on amlodipine, carvedilol, lasix, losartan Instructed to take amlodipine, carvedilol and hold lasix, losartan DOS. 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 Jerome ECHO 01/16/25 Stress Combined Conclusion: Normal pharmacological myocardial perfusion study. Findings suggest a low risk of cardiac events. Perfusion Comments: LV perfusion is probably normal at rest. LV perfusion is probably normal with stress. There is no evidence of inducible ischemia. Perfusion Defect: There is a mild severity left ventricular stress perfusion defect that is medium in size present in the inferior segment(s) that is fixed. The defect is consistent with abnormal perfusion in the RCA territory. There is normal wall motion in the defect area. The defect appears to be an artifact caused by motion. Stress Function: Left ventricular function post-stress is normal. Post-stress ejection fraction is 58%. No regional wall motion abnormalities. Stress ECG: Conclusion: The stress test is normal. 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 (HCC) Jentadueto - instructed to hold DOS 01/27/25 A1C 6.0 Dyslipidemia On Zetia, Vascepa Instructed to stop Vascepa 7 days before surgery Obstructive sleep apnea syndrome Complaint with APAP Instructed patient to bring APAP to DOS COPD (chronic obstructive pulmonary disease) ([facility]) Spiriva, and uses rescue inhaler as needed Hospitalizations: 08/2024 with PNA; 10/2024 ED visit with flu and dyspnea, improved 11/08/24 CXR showed no acute cardiopulmonary process Patient reports Shortness of Breath on exertion, no home O2 use Today SpO2 99% on RA, Lung sound CTA Instructed to use inhalers as prescribed and bring to DOS Stage 3 chronic kidney disease (HCC) Kerendia 11/25/24 Pipe Insulator 0.98, GFR 59 Pulmonary hypertension (HCC) ECHO 07/25/24 showed RVSP of 72mmHg, normal RV function Follow pulmonology [facility] 12/28/24 - optimization in scanned doc ECHO 07/25/24 Left Ventricle: Left ventricle size is normal. Normal wall thickness. Normal left ventricular systolic function. EF by 2D Simpsons Biplane is 55%. Normal wall motion. Grade II diastolic dysfunction with increased LAP. Right Ventricle: Right ventricle size is normal. Normal systolic function. Aortic Valve: Mild (1+) regurgitation. Mild stenosis of the aortic valve. AV mean gradient is 7 mmHg. Mitral Valve: Moderately thickened leaflets. Mildly calcified leaflets. Mild annular calcification. Moderate (2+) regurgitation with a posterior directed jet. Mild stenosis noted. Tricuspid Valve: Mild to moderate (1-2+) regurgitation. RVSP is 72 mmHg. Bilateral carotid artery stenosis S/p right CEA Anemia Blood transfusion x2 on 01/17/25 and iron transfusion x1 Following PCP on identifying cause of anemia On oral iron supplement 02/20/25 HAND 7.04/11.4 CBC today PVD (peripheral vascular disease) On Pletal Some right leg pain when walking, edema at right ankle Following vascular provider in [place] 03-10-2025 History of Presen t illness Narrative Summary: PAT CC SEBASTIAN please review with anesthesia for the following reasons, thank you! 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 METs 2.75 Scheduled 03/30/[address] 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 Jerome TRINITY 12/12/24 EKG 12/12/24 showed Sinus Rhythm in care everywhere EKG today - NSR Essential (primary) hypertension Controlled on amlodipine, carvedilol, lasix, losartan Instructed to take amlodipine, carvedilol and hold lasix, losartan DOS. 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 Jerome ECHO 01/16/25 Stress Combined Conclusion: Normal pharmacological myocardial perfusion study. Findings suggest a low risk of cardiac events. Perfusion Comments: LV perfusion is probably normal at rest. LV perfusion is probably normal with stress. There is no evidence of inducible ischemia. Perfusion Defect: There is a mild severity left ventricular stress perfusion defect that is medium in size present in the inferior segment(s) that is fixed. The defect is consistent with abnormal perfusion in the RCA territory. There is normal wall motion in the defect area. The defect appears to be an artifact caused by motion. Stress Function: Left ventricular function post-stress is normal. Post-stress ejection fraction is 58%. No regional wall motion abnormalities. Stress ECG: Conclusion: The stress test is normal. 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 ([facility]) Marisa - instructed to hold DOS 01/27/25 A1C 6.0 Dyslipidemia On Zetia, Vascepa Instructed to stop Vascepa 7 days before surgery Obstructive sleep apnea syndrome Complaint with APAP Instructed patient to bring APAP to DOS COPD (chronic obstructive pulmonary disease) ([facility]) Spiriva, and uses rescue inhaler as needed Hospitalizations: 08/2024 with PNA; 10/2024 ED visit with flu and dyspnea, improved 11/08/24 CXR showed no acute cardiopulmonary process Patient reports Shortness of Breath on exertion, no home O2 use Today SpO2 99% on RA, Lung sound CTA Instructed to use inhalers as prescribed and bring to DOS Stage 3 chronic kidney disease (HCC) Kerendia 11/25/24 Pipe Insulator 0.98, GFR 59 Pulmonary hypertension ([facility]) ECHO 07/25/24 showed RVSP of 72mmHg, normal RV function Follow pulmonology [facility] 12/28/24 - optimization in scanned doc ECHO 07/25/24 Left Ventricle: Left ventricle size is normal. Normal wall thickness. Normal left ventricular systolic function. EF by 2D Simpsons Biplane is 55%. Normal wall motion. Grade II diastolic dysfunction with increased LAP. Right Ventricle: Right ventricle size is normal. Normal systolic function. Aortic Valve: Mild (1+) regurgitation. Mild stenosis of the aortic valve. AV mean gradient is 7 mmHg. Mitral Valve: Moderately thickened leaflets. Mildly calcified leaflets. Mild annular calcification. Moderate (2+) regurgitation with a posterior directed jet. Mild stenosis noted. Tricuspid Valve: Mild to moderate (1-2+) regurgitation. RVSP is 72 mmHg. Bilateral carotid artery stenosis S/p right CEA Anemia Blood transfusion x2 on 01/17/25 and iron transfusion x1 Following PCP on identifying cause of anemia On oral iron supplement 02/20/25 H&H 7.8/26.4 CBC today PVD (peripheral vascular disease) On Pletal Some right leg pain when walking, edema at right ankle Following vascular provider in [place] documented in this encounter [facility] 03-10-2025 History and physical note Images from the original note were not included. [facility] HISTORY AND PHYSICAL EXAMINATION SERVICE DATE: 03/10/2025 SERVICE TIME: 3:21 PM PRIMARY CARE PHYSICIAN: Celia Al, DO Assessment Patient has the following medical conditions which may affect hodan-operative course: Preop examination See note for medical conditions which may affect hodan-operative course addressed in visit today. Spinal stenosis in cervical region See HPI, surgery scheduled 03/30/25 PAF (paroxysmal atrial fibrillation) (HCC) s/p PVI + PWI, and ablation of atypical flutter with anterior mitral line 04/2024 Stable on carvedilol, Eliquis Follow cardiology Dr. Jerome TRINITY 12/12/24 EKG 12/12/24 showed Sinus Rhythm in care everywhere EKG today - NSR Essential (primary) hypertension Controlled on amlodipine, carvedilol, lasix, losartan Instructed to take amlodipine, carvedilol and hold lasix, losartan DOS. 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 Jerome ECHO 01/16/25 Stress Combined Conclusion: Normal pharmacological myocardial perfusion study. Findings suggest a low risk of cardiac events. Perfusion Comments: LV perfusion is probably normal at rest. LV perfusion is probably normal with stress. There is no evidence of inducible ischemia. Perfusion Defect: There is a mild severity left ventricular stress perfusion defect that is medium in size present in the inferior segment(s) that is fixed. The defect is consistent with abnormal perfusion in the RCA territory. There is normal wall motion in the defect area. The defect appears to be an artifact caused by motion. Stress Function: Left ventricular function post-stress is normal. Post-stress ejection fraction is 58%. No regional wall motion abnormalities. Stress ECG: Conclusion: The stress test is normal. 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 (HCC) Jentadueto - instructed to hold DOS 01/27/25 A1C 6.0 Dyslipidemia On Zetia, Vascepa Instructed to stop Vascepa 7 days before surgery Obstructive sleep apnea syndrome Complaint with APAP Instructed patient to bring APAP to DOS COPD (chronic obstructive pulmonary disease) ([facility]) Spiriva, and uses rescue inhaler as needed Hospitalizations: 08/2024 with PNA; 10/2024 ED visit with flu and dyspnea, improved 11/08/24 CXR showed no acute cardiopulmonary process Patient reports Shortness of Breath on exertion, no home O2 use Today SpO2 99% on RA, Lung sound CTA Instructed to use inhalers as prescribed and bring to DOS Stage 3 chronic kidney disease (HCC) Kerendia 11/25/24 Pipe Insulator 0.98, GFR 59 Pulmonary hypertension ([facility]) ECHO 07/25/24 showed RVSP of 72mmHg, normal RV function Follow pulmonology [facility] 12/28/24 - optimization in scanned doc ECHO 07/25/24 Left Ventricle: Left ventricle size is normal. Normal wall thickness. Normal left ventricular systolic function. EF by 2D Simpsons Biplane is 55%. Normal wall motion. Grade II diastolic dysfunction with increased LAP. Right Ventricle: Right ventricle size is normal. Normal systolic function. Aortic Valve: Mild (1+) regurgitation. Mild stenosis of the aortic valve. AV mean gradient is 7 mmHg. Mitral Valve: Moderately thickened leaflets. Mildly calcified leaflets. Mild annular calcification. Moderate (2+) regurgitation with a posterior directed jet. Mild stenosis noted. Tricuspid Valve: Mild to moderate (1-2+) regurgitation. RVSP is 72 mmHg. Bilateral carotid artery stenosis S/p right CEA Anemia Blood transfusion x2 on 01/17/25 and iron transfusion x1 Following PCP on identifying cause of anemia On oral iron supplement 02/20/25 H&H 7.8/26.4 CBC today PVD (peripheral vascular disease) On Pletal Some right leg pain when walking, edema at right ankle Following vascular provider in [place] ANESTHESIA FINDINGS: Intubation History: No history of difficult intubation. No abnormal airway history Significant Anesthesia Considerations: potential slow emergence Airway History: No history of difficult airway No abnormal airway history Freedman Activity Status Index: METS: Take care of self; that is eating, dressing, bathing, using the toilet (2.75 METs) DASI Score: 2.75 Patient denies any chest pain or undue shortness of breath with the above physical activity. Clinical Frailty Scale: 4. Apparently vulnerable ARISCAT Score: Age: 51-80 Preoperative SpO2: >=96% Respiratory infection in the last month: No Preoperative anemia: No Surgical incision: peripheral Duration of surgery: >3 hrs Emergency procedure: No ARISCAT Score: 26 I - PHYSICAL EVALUATION AIRWAY Patient intubated: No. DENTAL Dental findings: missing tooth/teeth and teeth intact. Dentures, lower: partial. II - ANESTHESIA PLAN Anesthetic Plan: general Beta Luna Monitoring Plan Post Procedure Analgesic Plan Prepared for Surgery: CONSULTS: The following consults have been initiated at this time: cardiology (pending), primary care/internal medicine (pending, appt 03/14) and pulmonary (in scanned doc). Planned Anesthetic: general The Following Tests/Procedures Have Been Initiated: No orders of the defined types were placed in this encounter. A1C, T&S, EKG, MRSA, PTT, PT, CMP, CBC ordered per surgeon. Pt instructed to follow surgeon and prescribing provider's instruction regarding blood thinners. ARISCAT risk index interpretation 0 to 25 points: Low risk: 1.6% pulmonary complication rate 26 to 44 points: Intermediate risk: 13.3% pulmonary complication rate 45 to 123 points: High risk: 42.1% pulmonary complication rate Assessment/Plan Spinal stenosis in cervical region [M48.02] PLAN Diagnosis: Planned Procedure: Procedure(s): CERVICAL LAMINOPLASTY WITH DECOMPRESSION 2 OR MORE SEGMENTS (N/A) I spent a total of 60 minutes on the date of the service which included preparing to see the patient, [id number] patient care, completing clinical documentation, obtaining and/or reviewing separately obtained history, performing a medically appropriate examination, and counseling and educating the patient/family/caregiver. REASON FOR VISIT: Rolando Peters is a 80 year old female who is scheduled for Procedure(s): CERVICAL LAMINOPLASTY WITH DECOMPRESSION 2 OR MORE SEGMENTS (N/A) at the request of Dominick Cutler MD for routine H&P. My final recommendation will be communicated back to the requesting physician by way of shared medical record or letter. Subjective The patient has the following: COVID-19 Immunization Status This patient has no relevant Health Maintenance data. CHIEF COMPLAINT: The reason for this visit is to perform a comprehensive review of the patient's past medical history, assess their current health status and obtain any additional testing required based on anesthesia guidelines. We will also identify any potential anesthesia problems or contraindications to the planned procedure. HPI: Rolando Peters is a 80 year old female who presents to [facility] for the above procedure. Patient reports cervical radiculopathy and spinal stenosis. She reports weakness in arms, occasional numbness and tingling. Also c/o PVD and right leg pain and numbness, using cane for support and wheelchair with long distance support. After discussing with surgeon, patient agrees to surgical intervention. Risk and benefits discussed by surgeon. Patient denies any other problems or concerns at this time. REVIEW OF SYSTEMS: General: Negative for: fever. Neurological: Negative for: delirium, dementia, seizures, TIA and strokes. Respiratory: Positive for: asthma, COPD, obstructive sleep apnea and CPAP/BiPAP compliant. Negative for: pneumonia within 6 weeks and URI < 2 weeks. Cardiovascular: Positive for: atrial fibrillation (paroxymal), CHF, hyperlipidemia and hypertension Negative for: CAD, chest pain, DVT/PE and recent [place]. GI: Positive for: GERD Negative for: abdominal pain, dysphagia, hepatitis, nausea, vomiting and ETOH >2 drinks/day. : Negative for: dysuria, hematuria, urinary incontinence and renal failure. [employer]: Negative for abnormal vaginal bleeding, abnormal vaginal discharge. Endocrine: Positive for: diabetes mellitus. Patient's diabetes mellitus is controlled by oral agents. Negative for: hypothyroidism. Hematology: Positive for: chronic anti-coagulation/platelet meds. Patient is on anti-coagulation/platelet medication(s): DOAC. Negative for: anemia, factor V Leiden, hemophilia and von Willebrand disease. Oncology: No history of CA metastasis, chemo within 30 days, or radiotherapy within 90 days. No history of oncological symptoms or problems. Psych: No history of psychiatric symptoms or problems. Musculoskeletal: See HPI. Skin: Negative for lesions, rash and itching. Implanted Devices: Has implanted device Implants: bilateral IOLs, left breast implant. PAST MEDICAL HISTORY Diagnosis Date Asthma (HCC) Bilateral breast cancer (HCC) Bilateral carotid artery stenosis BRCA1 positive CKD (chronic kidney disease), stage II COPD (chronic obstructive pulmonary disease) (HCC) Diabetes mellitus (HCC) Dyslipidemia Essential hypertension GERD (gastroesophageal reflux disease) Iron deficiency anemia Mixed hyperlipidemia INGA (obstructive sleep apnea) PAF (paroxysmal atrial fibrillation) (HCC) Spinal stenosis PAST SURGICAL HISTORY Procedure Laterality Date ABLATION A-FIB BY PVI 04/2024 BREAST SURGERY HX Left 2010 mastectomy with silicon implant BREAST SURGERY HX Right 1993 TRAM with breast reconstruction CAROTID ENDARTERECTOMY Right 2008 REMV CATARACT EXTRACAP,INSERT LENS Bilateral 2005 TOTAL ABDOM HYSTERECTOMY 1998 BSO History reviewed. No pertinent family history. Social History Tobacco Use Smoking status: Never Smokeless tobacco: Never Vaping Use Vaping status: Never Used Substance Use Topics Alcohol use: Yes Comment: 1-2 glasses of wine evening Drug use: Never Prior to Admission medications as of 03/10/25 1307 Medication Sig Last Dose Taking cilostazol (PLETAL) 50 mg tablet Take 50 mg by mouth. Yes Ferrous Sulfate 142 mg (45 mg iron) TbER Take by mouth two times a day. Yes pantoprazole DR (PROTONIX) 40 mg tablet Take by mouth once daily. Yes sertraline (ZOLOFT) 25 mg tablet Take 25 mg by mouth once daily. Yes SPIRIVA RESPIMAT 2.5 mcg/actuation inhaler Inhale 2 puffs as instructed. Yes amLODIPine (NORVASC) 2.5 mg tablet Take 2.5 mg by mouth once daily. Yes carvedilol (COREG) 12.5 mg tablet Take 12.5 mg by mouth two times a day with meals. Yes apixaban (ELIQUIS) 5 mg tab(s) Take 5 mg by mouth two times a day. Yes furosemide (LASIX) 20 mg tablet Take 20 mg by mouth every other day. Yes albuterol HFA (PROVENTIL HFA, VENTOLIN HFA) 90 mcg/actuation inhaler albuterol sulfate HFA 90 mcg/actuation aerosol inhaler Yes cholecalciferol (VITAMIN D3) 50 mcg (2,000 unit) tablet Take 4,000 Units by mouth as needed. Yes cyclobenzaprine (FLEXERIL) 5 mg tablet Take 1 tablet (5 mg) by mouth as needed at bedtime for muscle spasms. Yes ezetimibe (ZETIA) 10 mg tablet Take 1 tablet (10 mg) by mouth in the morning. Yes KERENDIA 10 mg tablet Take 1 tablet by mouth every afternoon. Yes icosapent ethyl (VASCEPA) 1 gram capsule TAKE 2 CAPSULES BY MOUTH 2 TIMES DAILY Yes JENTADUETO XR 2.5-1,000 mg XR tab Take 1 tablet by mouth two times a day. Yes losartan (COZAAR) 100 mg tablet Take 1 tablet by mouth every afternoon. Yes rosuvastatin (CRESTOR) 10 mg tablet Take 1 tablet by mouth every afternoon. Yes acetaminophen (TYLENOL EXTRA STRENGTH) 500 mg tablet Take 1,000 mg by mouth every 8 hours as needed for pain. Clindamycin Phosphate (CLEOCIN T) 1 % lotion as needed. fluocinonide (LIDEX) 0.05 % external solution as needed. No medication comments found. ALLERGIES Allergen Reactions Isosulfan Blue Anaphylaxis Methylene Blue Anaphylaxis Adhesive Rash Sulfa (Sulfonamide * Rash Objective PHYSICAL EXAM: General: alert and oriented and healthy appearance. Pertinent negatives noted - not distressed. Skin: normal color, no rash or lesions. HEENT: No additional findings for patient's neck. Cardiovascular: Pulse characterized as regular.Positive for murmur. Pertinent negatives noted - no rub. Findings of a 2/6 grade systolic heart murmur with a quality, and a location of: URSB and ULSB. Respiratory: normal breath sounds, no wheezes or crackles. No chest wall deformity or tenderness. Abdomen: bowel sounds present and soft. Pertinent negatives noted - not tender. Extremities: Positive for edema (right ankle to foot). Pertinent negatives noted - no deformity, no ulcer and no varicose veins. Neurological: normal cognition and motor skills. Positive for limb weakness. Limb weakness located right LE. PAIN ASSESSMENT: Pain Pain Level: 6 Pain Location: Leg-Right VITALS: BP 123/61 Pulse 76 Temp 98.2 Resp 16 Ht 5' 7 (1.70m) Wt 127 lb (57.6kg) SpO2 99% BMI 19.89 kg/(m^2). Diagnostic tests reviewed for today's visit: Lab Value Units Date High Low HB No results within date range. HCT No results within date range. WBC No results within date range. PLT No results within date range. NA No results within date range. K No results within date range. GLUC No results within date range. BUN No results within date range. CREAT No results within date range. PTSEC 11.9 sec 03/10/2025 <13.1 INR 1.2 no uni* 03/10/2025 1.3 0.9 APTT 27.8 sec 03/10/2025 32.4 23.0 ALT No results within date range. AST No results within date range. TBILI No results within date range. TSH No results within date range. Lab Value Units Date High Low HCGQT No results within date range. UHCG No results within date range. HCG, BODY* No results within date range. Lab Value Units Date High Low ABORHD No results within date range. ABSCREEN No results within date range. Hemoglobin A1C (%) Date Value 01/27/2025 6.0 No results found for this or any previous visit (from the past 8760 hours). No results found for this or any previous visit (from the past 29593 hours). Instructions Given to Patient: Instructions located in the after visit summary. Patient given verbal and written preop instructions and voices comprehension and compliance. SIGNATURE: Eden Lynch APRN.CNP PATIENT NAME: Rolando Peters DATE: March 10, 2025 TIME: 3:15 PM PAGER/CONTACT #: [facility] 03-10-2025 History and physical note Images from the original note were not included. [facility] HISTORY AND PHYSICAL EXAMINATION SERVICE DATE: 03/10/2025 SERVICE TIME: 3:21 PM PRIMARY CARE PHYSICIAN: Celia Al, DO Assessment Patient has the following medical conditions which may affect hodan-operative course: Preop examination See note for medical conditions which may affect hodan-operative course addressed in visit today. Spinal stenosis in cervical region See HPI, surgery scheduled 03/30/25 PAF (paroxysmal atrial fibrillation) (HCC) s/p PVI + PWI, and ablation of atypical flutter with anterior mitral line 04/2024 Stable on carvedilol, Eliquis Follow cardiology Dr. Jerome [facility] 12/12/24 EKG 12/12/24 showed Sinus Rhythm in care everywhere EKG today - NSR Essential (primary) hypertension Controlled on amlodipine, carvedilol, lasix, losartan Instructed to take amlodipine, carvedilol and hold lasix, losartan DOS. 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 Jerome ECHO 01/16/25 Stress Combined Conclusion: Normal pharmacological myocardial perfusion study. Findings suggest a low risk of cardiac events. Perfusion Comments: LV perfusion is probably normal at rest. LV perfusion is probably normal with stress. There is no evidence of inducible ischemia. Perfusion Defect: There is a mild severity left ventricular stress perfusion defect that is medium in size present in the inferior segment(s) that is fixed. The defect is consistent with abnormal perfusion in the RCA territory. There is normal wall motion in the defect area. The defect appears to be an artifact caused by motion. Stress Function: Left ventricular function post-stress is normal. Post-stress ejection fraction is 58%. No regional wall motion abnormalities. Stress ECG: Conclusion: The stress test is normal. 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 (HCC) Jentadueto - instructed to hold DOS 01/27/25 A1C 6.0 Dyslipidemia On Zetia, Vascepa Instructed to stop Vascepa 7 days before surgery Obstructive sleep apnea syndrome Complaint with APAP Instructed patient to bring APAP to DOS COPD (chronic obstructive pulmonary disease) (HCC) Spiriva, and uses rescue inhaler as needed Hospitalizations: 08/2024 with PNA; 10/2024 ED visit with flu and dyspnea, improved 11/08/24 CXR showed no acute cardiopulmonary process Patient reports Shortness of Breath on exertion, no home O2 use Today SpO2 99% on RA, Lung sound CTA Instructed to use inhalers as prescribed and bring to DOS Stage 3 chronic kidney disease (HCC) Kerendia 11/25/24 Pipe Insulator 0.98, GFR 59 Pulmonary hypertension (HCC) ECHO 07/25/24 showed RVSP of 72mmHg, normal RV function Follow pulmonology [facility] 12/28/24 - optimization in scanned doc ECHO 07/25/24 Left Ventricle: Left ventricle size is normal. Normal wall thickness. Normal left ventricular systolic function. EF by 2D Simpsons Biplane is 55%. Normal wall motion. Grade II diastolic dysfunction with increased LAP. Right Ventricle: Right ventricle size is normal. Normal systolic function. Aortic Valve: Mild (1+) regurgitation. Mild stenosis of the aortic valve. AV mean gradient is 7 mmHg. Mitral Valve: Moderately thickened leaflets. Mildly calcified leaflets. Mild annular calcification. Moderate (2+) regurgitation with a posterior directed jet. Mild stenosis noted. Tricuspid Valve: Mild to moderate (1-2+) regurgitation. RVSP is 72 mmHg. Bilateral carotid artery stenosis S/p right CEA Anemia Blood transfusion x2 on 01/17/25 and iron transfusion x1 Following PCP on identifying cause of anemia On oral iron supplement 02/20/25 H&H 7.8/26.4 CBC today PVD (peripheral vascular disease) On Pletal Some right leg pain when walking, edema at right ankle Following vascular provider in [place] ANESTHESIA FINDINGS: Intubation History: No history of difficult intubation. No abnormal airway history Significant Anesthesia Considerations: potential slow emergence Airway History: No history of difficult airway No abnormal airway history Freedman Activity Status Index: METS: Take care of self; that is eating, dressing, bathing, using the toilet (2.75 METs) DASI Score: 2.75 Patient denies any chest pain or undue shortness of breath with the above physical activity. Clinical Frailty Scale: 4. Apparently vulnerable ARISCAT Score: Age: 51-80 Preoperative SpO2: >=96% Respiratory infection in the last month: No Preoperative anemia: No Surgical incision: peripheral Duration of surgery: >3 hrs Emergency procedure: No ARISCAT Score: 26 I - PHYSICAL EVALUATION AIRWAY Patient intubated: No. DENTAL Dental findings: missing tooth/teeth and teeth intact. Dentures, lower: partial. II - ANESTHESIA PLAN Anesthetic Plan: general Beta Luna Monitoring Plan Post Procedure Analgesic Plan Prepared for Surgery: CONSULTS: The following consults have been initiated at this time: cardiology (pending), primary care/internal medicine (pending, appt 03/14) and pulmonary (in scanned doc). Planned Anesthetic: general The Following Tests/Procedures Have Been Initiated: No orders of the defined types were placed in this encounter. A1C, T&S, EKG, MRSA, PTT, PT, CMP, CBC ordered per surgeon. Pt instructed to follow surgeon and prescribing provider's instruction regarding blood thinners. ARISCAT risk index interpretation 0 to 25 points: Low risk: 1.6% pulmonary complication rate 26 to 44 points: Intermediate risk: 13.3% pulmonary complication rate 45 to 123 points: High risk: 42.1% pulmonary complication rate Assessment/Plan Spinal stenosis in cervical region [M48.02] PLAN Diagnosis: Planned Procedure: Procedure(s): CERVICAL LAMINOPLASTY WITH DECOMPRESSION 2 OR MORE SEGMENTS (N/A) I spent a total of 60 minutes on the date of the service which included preparing to see the patient, [id number] patient care, completing clinical documentation, obtaining and/or reviewing separately obtained history, performing a medically appropriate examination, and counseling and educating the patient/family/caregiver. REASON FOR VISIT: Rolando Peters is a 80 year old female who is scheduled for Procedure(s): CERVICAL LAMINOPLASTY WITH DECOMPRESSION 2 OR MORE SEGMENTS (N/A) at the request of Dominick Cutler MD for routine H&P. My final recommendation will be communicated back to the requesting physician by way of shared medical record or letter. Subjective The patient has the following: COVID-19 Immunization Status This patient has no relevant Health Maintenance data. CHIEF COMPLAINT: The reason for this visit is to perform a comprehensive review of the patient's past medical history, assess their current health status and obtain any additional testing required based on anesthesia guidelines. We will also identify any potential anesthesia problems or contraindications to the planned procedure. HPI: Rolando Peters is a 80 year old female who presents to [facility] for the above procedure. Patient reports cervical radiculopathy and spinal stenosis. She reports weakness in arms, occasional numbness and tingling. Also c/o PVD and right leg pain and numbness, using cane for support and wheelchair with long distance support. After discussing with surgeon, patient agrees to surgical intervention. Risk and benefits discussed by surgeon. Patient denies any other problems or concerns at this time. REVIEW OF SYSTEMS: General: Negative for: fever. Neurological: Negative for: delirium, dementia, seizures, TIA and strokes. Respiratory: Positive for: asthma, COPD, obstructive sleep apnea and CPAP/BiPAP compliant. Negative for: pneumonia within 6 weeks and URI < 2 weeks. Cardiovascular: Positive for: atrial fibrillation (paroxymal), CHF, hyperlipidemia and hypertension Negative for: CAD, chest pain, DVT/PE and recent [place]. GI: Positive for: GERD Negative for: abdominal pain, dysphagia, hepatitis, nausea, vomiting and ETOH >2 drinks/day. : Negative for: dysuria, hematuria, urinary incontinence and renal failure. [employer]: Negative for abnormal vaginal bleeding, abnormal vaginal discharge. Endocrine: Positive for: diabetes mellitus. Patient's diabetes mellitus is controlled by oral agents. Negative for: hypothyroidism. Hematology: Positive for: chronic anti-coagulation/platelet meds. Patient is on anti-coagulation/platelet medication(s): DOAC. Negative for: anemia, factor V Leiden, hemophilia and von Willebrand disease. Oncology: No history of CA metastasis, chemo within 30 days, or radiotherapy within 90 days. No history of oncological symptoms or problems. Psych: No history of psychiatric symptoms or problems. Musculoskeletal: See HPI. Skin: Negative for lesions, rash and itching. Implanted Devices: Has implanted device Implants: bilateral IOLs, left breast implant. PAST MEDICAL HISTORY Diagnosis Date Asthma (HCC) Bilateral breast cancer (HCC) Bilateral carotid artery stenosis BRCA1 positive CKD (chronic kidney disease), stage II COPD (chronic obstructive pulmonary disease) (HCC) Diabetes mellitus (HCC) Dyslipidemia Essential hypertension GERD (gastroesophageal reflux disease) Iron deficiency anemia Mixed hyperlipidemia INGA (obstructive sleep apnea) PAF (paroxysmal atrial fibrillation) (HCC) Spinal stenosis PAST SURGICAL HISTORY Procedure Laterality Date ABLATION A-FIB BY PVI 04/2024 BREAST SURGERY HX Left 2010 mastectomy with silicon implant BREAST SURGERY HX Right 1993 TRAM with breast reconstruction CAROTID ENDARTERECTOMY Right 2008 REMV CATARACT EXTRACAP,INSERT LENS Bilateral 2005 TOTAL ABDOM HYSTERECTOMY 1999 BSO History reviewed. No pertinent family history. Social History Tobacco Use Smoking status: Never Smokeless tobacco: Never Vaping Use Vaping status: Never Used Substance Use Topics Alcohol use: Yes Comment: 1-2 glasses of wine evening Drug use: Never Prior to Admission medications as of 03/10/25 1307 Medication Sig Last Dose Taking cilostazol (PLETAL) 50 mg tablet Take 50 mg by mouth. Yes Ferrous Sulfate 142 mg (45 mg iron) TbER Take by mouth two times a day. Yes pantoprazole DR (PROTONIX) 40 mg tablet Take by mouth once daily. Yes sertraline (ZOLOFT) 25 mg tablet Take 25 mg by mouth once daily. Yes SPIRIVA RESPIMAT 2.5 mcg/actuation inhaler Inhale 2 puffs as instructed. Yes amLODIPine (NORVASC) 2.5 mg tablet Take 2.5 mg by mouth once daily. Yes carvedilol (COREG) 12.5 mg tablet Take 12.5 mg by mouth two times a day with meals. Yes apixaban (ELIQUIS) 5 mg tab(s) Take 5 mg by mouth two times a day. Yes furosemide (LASIX) 20 mg tablet Take 20 mg by mouth every other day. Yes albuterol HFA (PROVENTIL HFA, VENTOLIN HFA) 90 mcg/actuation inhaler albuterol sulfate HFA 90 mcg/actuation aerosol inhaler Yes cholecalciferol (VITAMIN D3) 50 mcg (2,000 unit) tablet Take 4,000 Units by mouth as needed. Yes cyclobenzaprine (FLEXERIL) 5 mg tablet Take 1 tablet (5 mg) by mouth as needed at bedtime for muscle spasms. Yes ezetimibe (ZETIA) 10 mg tablet Take 1 tablet (10 mg) by mouth in the morning. Yes KERENDIA 10 mg tablet Take 1 tablet by mouth every afternoon. Yes icosapent ethyl (VASCEPA) 1 gram capsule TAKE 2 CAPSULES BY MOUTH 2 TIMES DAILY Yes JENTADUETO XR 2.5-1,000 mg XR tab Take 1 tablet by mouth two times a day. Yes losartan (COZAAR) 100 mg tablet Take 1 tablet by mouth every afternoon. Yes rosuvastatin (CRESTOR) 10 mg tablet Take 1 tablet by mouth every afternoon. Yes acetaminophen (TYLENOL EXTRA STRENGTH) 500 mg tablet Take 1,000 mg by mouth every 8 hours as needed for pain. Clindamycin Phosphate (CLEOCIN T) 1 % lotion as needed. fluocinonide (LIDEX) 0.05 % external solution as needed. No medication comments found. ALLERGIES Allergen Reactions Isosulfan Blue Anaphylaxis Methylene Blue Anaphylaxis Adhesive Rash Sulfa (Sulfonamide * Rash Objective PHYSICAL EXAM: General: alert and oriented and healthy appearance. Pertinent negatives noted - not distressed. Skin: normal color, no rash or lesions. HEENT: No additional findings for patient's neck. Cardiovascular: Pulse characterized as regular.Positive for murmur. Pertinent negatives noted - no rub. Findings of a 2/6 grade systolic heart murmur with a quality, and a location of: URSB and ULSB. Respiratory: normal breath sounds, no wheezes or crackles. No chest wall deformity or tenderness. Abdomen: bowel sounds present and soft. Pertinent negatives noted - not tender. Extremities: Positive for edema (right ankle to foot). Pertinent negatives noted - no deformity, no ulcer and no varicose veins. Neurological: normal cognition and motor skills. Positive for limb weakness. Limb weakness located right LE. PAIN ASSESSMENT: Pain Pain Level: 6 Pain Location: Leg-Right VITALS: BP 123/61 Pulse 76 Temp 98.2 Resp 16 Ht 5' 7 (1.70m) Wt 127 lb (57.6kg) SpO2 99% BMI 19.89 kg/(m^2). Diagnostic tests reviewed for today's visit: Lab Value Units Date High Low HB No results within date range. HCT No results within date range. WBC No results within date range. PLT No results within date range. NA No results within date range. K No results within date range. GLUC No results within date range. BUN No results within date range. CREAT No results within date range. PTSEC 11.9 sec 03/10/2025 <13.1 INR 1.2 no uni* 03/10/2025 1.3 0.9 APTT 27.8 sec 03/10/2025 32.4 23.0 ALT No results within date range. AST No results within date range. TBILI No results within date range. TSH No results within date range. Lab Value Units Date High Low HCGQT No results within date range. UHCG No results within date range. HCG, BODY* No results within date range. Lab Value Units Date High Low ABORHD No results within date range. ABSCREEN No results within date range. Hemoglobin A1C (%) Date Value 01/27/2025 6.0 No results found for this or any previous visit (from the past 8760 hours). No results found for this or any previous visit (from the past 86707 hours). Instructions Given to Patient: Instructions located in the after visit summary. Patient given verbal and written preop instructions and voices comprehension and compliance. SIGNATURE: Eden Lynch APRN.CNP PATIENT NAME: Rolando Peters DATE: March 10, 2025 TIME: 3:15 PM PAGER/CONTACT #: documented in this encounter [facility] 03-10-2025 History of Presen t illness Narrative Images from the original note were not included. SPINE SURGERY ESTABLISHED PATIENT DATE OF SERVICE: 03/10/2025 Patient Name: Ms.Marie Kelsy Peters Date of : 1945 Current Age: [age] year old Sex: female Subjective Chief Complaint: History of Present Illness: Ms.Marie Kelsy Peters has a past medical history of diabetes mellitus type 2, INGA, HTN, HLD, bilateral malignant neoplasm of breast status post right-sided mastectomy in 1993 and left-sided mastectomy in 2010. Patient was last seen in the office on 02/08/2025 and noted right-sided neck pain radiating into her shoulder, with occasional tingling down the anterior aspect of her arms into her hands, right > left. Endorsed dexterity and balance issues. 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 She wished to consider surgical intervention. Additionally, she also reported a 2-3 year history of back pain that had been gradually worsening. The pain started in her lower back and radiated into her right gluteal region and down the entire right leg, accompanied by numbness and tingling in both feet, right > left. She also described urinary urgency at that time and denied any saddle anesthesia. She noted a slight increase in weakness in RLE. She reported a recent right foot infection and was on doxycycline after completing a course of Keflex that did not clear the infection. She had one episode of bowel incontinence without saddle anesthesia. On exam, she had 3/5 weakness in right DF/EHL, 4/5 right PF and ambulated with a cane. MRI of lumbar spine demonstrated nerve root compression at L3-L5. Discussed undergoing lumbar laminectomy approximately 8 weeks after cervical surgery if symptoms persisted. C4-C6 Laminoplasty is scheduled for 03/30/2025, L3-L5 Laminectomy is scheduled for 05/25/2025. She presents to the office today to further discuss surgery and sign consent. Rolando Peters is a 80-year-old female presenting for a preoperative consultation for cervical laminectomy. 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 She is scheduled for a CT angiogram on March 27 to further evaluate the condition. She inquires whether to proceed with the scheduled cervical laminectomy on March [address] or wait [address] the CT angiogram results, as her vascular surgeon mentioned potential interventions such as stenting or endarterectomy based on the findings. She has been experiencing significant discomfort in her right leg, which has hindered her ability to continue physical therapy. She denies any signs of infection. She also has a dental cleaning scheduled for April 20 and inquires about the appropriate timing for rescheduling it postoperatively. Major Risk Factors Obesity normal BMI: 21.13 kg/m2 High: BMI > 40 Moderate: BMI 30-40 Normal: BMI < 30 Diabetes normal Last HbA1C: - 01/27/2025 High: A1C > 8 Moderate: A1C 7-8 Normal: A1C < 7 Hx of DVT / PE normal High: dx of DVT / PE Normal: no dx of DVT / PE Smoking normal Last Status: Never High: Current smoker Normal: Non smoker Narcotics Use normal High:NarxCare >=300 Moderate: 100-299 Normal: 0-99 Depression High Risk High: PHQ-9 >14 Moderate: PHQ-9 5-14 Normal: PHQ-9 < 5 Data from [facility] Epic on prior therapies: PREVIOUS CONSERVATIVE TREATMENT: -Medication: Flexeril, Prednisone (for 2-3 months for lungs and recently completed), Tylenol -Physical therapy: 02/15/2025, 02/22/2025 for neck -02/15/2025 for low back -Pain Management: No recent participation -Injections: Lumbar FELECIA 4-5 years ago- no relief. Unsure of level. PREVIOUS SPINE SURGERY: None Surgical Risk Factors: Smoking status: Denies Anticoagulants/antiplatelets: Eliquis bid for afib in January 2024, ablation in 07/2024 Diabetic: Yes, last hgba1c 6.0% from 01/27/2025 Objective PHYSICAL EXAM There were no vitals taken for this visit. 5/5 motor strength in BUE and BLE except 3/5 right DF/EHL, 4/5 right PF, ambulates with cane SILT throughout extremities No UMN signs Results: MRI of cervical spine WO contrast from 02/01/2025: IMPRESSION: Multilevel degenerative changes of cervical spine, most significant at C5-C6, as detailed above. [id number] spinal canal stenosis at C5-C6, with mild mass effect on right aspect of spinal cord with mild spinal cord deformity. No convincing evidence of T2 hyperintense signal within cervical spinal cord. Presumed degenerative endplate changes at C5-C6. Early discitis is less likely. This can be clinically correlated. Anatomic Variant: None. Assume 7 cervical vertebrae with counting from the craniocervical junction. MRI of lumbar spine WO contrast from 02/01/2025: IMPRESSION: Severe spinal canal stenosis at L3-L4, as detailed above. Moderate spinal canal stenosis at L4-L5, as detailed above. Additional multilevel degenerative changes of the lumbar spine, as detailed above. Grade 1 anterolisthesis of L3 on L4, likely secondary to facet degenerative changes. Partially imaged trace nonspecific right pleural effusion. This is not further assessed on current examination. Anatomic Lumbar Variant: None. L4-5 is considered the level of the iliac crest and assume there are 5 lumbar-type vertebrae. Assessment/Plan 1. 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 Requires surgical intervention to alleviate pressure on the spinal cord. - Scheduled for cervical laminectomy on March 30 at 0900 to create more space for the spinal cord. - Procedure involves making cuts in the lamina and elevating it to create a door held open by brackets; non-fusion operation. Cervical laminoplasty, C7 dome laminectomy - Post-operative care includes wearing a soft collar for 2 weeks for comfort, with allowance for removal during eating, drinking, and showering. - Initiate extension exercises post-operatively to improve neck motion and strengthen cervical muscles. - Provided instructions on wound care: showering permitted, avoid scrubbing or submerging the wound, pat dry if wet. - Advised to avoid lifting over 10 pounds; twisting may be painful, but bending is permissible. - Recovery period expected to be approximately 8 weeks. - Recommended postponing dental cleaning scheduled for April 20 by one month to avoid discomfort. I engaged in a comprehensive discussion with the patient and their support system regarding both operative and non-operative treatment options, including the anticipated length of care, expected outcomes, and alternatives. We reviewed the potential need for intraoperative adjustment in the number of surgical levels (addition or subtraction) depending on real-time clinical findings. The natural progression of cervical spondylotic myelopathy without surgical intervention was also explained. The risks and benefits of both surgical and conservative management were reviewed in detail. Specific risks associated with the proposed surgical procedure are outlined below. After thoughtful discussion, the patient--along with their family or designated support persons--elected to proceed with C4-C6 laminoplasty, C7 dome laminectomy. I personally obtained written informed consent. Use of Dental Specialist and Assessment of Decision-Making Capacity: The patient demonstrated clear decision-making capacity, was alert and oriented, and was able to engage meaningfully in the discussion. Dental Specialist services were offered and utilized, ensuring that language was not a barrier to understanding. Communication was conducted in a culturally sensitive and patient-centered manner, consistent with principles of equitable and inclusive care. Medical and Surgical Risks: I thoroughly reviewed potential medical and surgical complications, including but not limited to: Deep vein thrombosis (DVT) Pulmonary embolism (PE) Stroke Myocardial infarction ([place]) The patient's cardiovascular and pulmonary risk factors were reviewed in the context of their pre-existing medical conditions. Preoperative optimization and clearance by the anesthesia and perioperative teams is part of our standard practice, and their expertise is essential in minimizing risk. Neurological Risk Disclosure: I discussed in detail the risk of neurological injury, ranging from partial to complete dysfunction. This includes: Nerve root injury that may lead to weakness, sensory loss, paralysis, and/or intractable pain, which may be temporary or permanent Compressive epidural hematoma or abscess, which could affect bowel, bladder, and extremity function Additional Risks: Durotomy and potential for cerebrospinal fluid (CSF) leakage, spinal headache, and/or the need for revision surgery or drain placement Fusion-related risks: pseudoarthrosis, hardware failure (e.g., pullout, dale/screw breakage or loosening), and potential need for revision surgery Hardware misplacement, potentially resulting in radiculopathy or neurological injury and revision surgery Extension of fusion above (cephalad) or below (caudad) the planned levels, if clinically indicated during the operation or as a separate surgery Adjacent segment disease, which may or may not become symptomatic Postoperative instability, leading to further surgery Superficial and deep infection, leading to medical treatment or surgical intervention I emphasized that there is no guarantee of symptom resolution, even in the setting of technically adequate decompression. The possibility of persistent symptoms or need for future surgical intervention was reviewed. Outcome Expectations and Standard of Care: I made clear that no promises or guarantees--explicit or implied--were made regarding the surgical outcome or the absence of complications. The decision to proceed with surgery is based on current clinical guidelines, best available evidence, and within the accepted standard of care for this procedure. The risks disclosed and the plan for perioperative management are consistent with national and institutional standards for quality and safety in spine surgery. Patient Understanding: The patient asked appropriate, thoughtful questions, which were answered fully and respectfully. The patient expressed a clear understanding of the indications, risks, and potential outcomes of the procedure. Based on this discussion, the patient gave informed consent and has chosen to proceed with surgery. Dominick Huggins MD documented in this encounter [facility] 03-10-2025 Note HNO ID: [id number] Author: DOMINICK HUGGINS MD Service: ? Author Type: Physician Type: Progress Notes Filed: 03/10/2025 12:05 Note Text: SPINE SURGERY ESTABLISHED PATIENT DATE OF SERVICE: 03/10/2025 Patient Name: Ms.Marie Kelsy Peters Date of : 1945 Current Age: [age] year old Sex: female Subjective Chief Complaint: History of Present Illness: Ms.Marie Kelsy Peters has a past medical history of diabetes mellitus type 2, INGA, HTN, HLD, bilateral malignant neoplasm of breast status post right-sided mastectomy in 1993 and left-sided mastectomy in 2010. Patient was last seen in the office on 02/08/2025 and noted right-sided neck pain radiating into her shoulder, with occasional tingling down the anterior aspect of her arms into her hands, right > left. Endorsed dexterity and balance issues. 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 She wished to consider surgical intervention. Additionally, she also reported a 2-3 year history of back pain that had been gradually worsening. The pain started in her lower back and radiated into her right gluteal region and down the entire right leg, accompanied by numbness and tingling in both feet, right > left. She also described urinary urgency at that time and denied any saddle anesthesia. She noted a slight increase in weakness in RLE. She reported a recent right foot infection and was on doxycycline after completing a course of Keflex that did not clear the infection. She had one episode of bowel incontinence without saddle anesthesia. On exam, she had 3/5 weakness in right DF/EHL, 4/5 right PF and ambulated with a cane. MRI of lumbar spine demonstrated nerve root compression at L3-L5. Discussed undergoing lumbar laminectomy approximately 8 weeks after cervical surgery if symptoms persisted. C4-C6 Laminoplasty is scheduled for 03/30/2025, L3-L5 Laminectomy is scheduled for 05/25/2025. She presents to the office today to further discuss surgery and sign consent. Rolando Peters is a 80-year-old female presenting for a preoperative consultation for cervical laminectomy. 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 She is scheduled for a CT angiogram on March 27 to further evaluate the condition. She inquires whether to proceed with the scheduled cervical laminectomy on March 30 or wait for the CT angiogram results, as her vascular surgeon mentioned potential interventions such as stenting or endarterectomy based on the findings. She has been experiencing significant discomfort in her right leg, which has hindered her ability to continue physical therapy. She denies any signs of infection. She also has a dental cleaning scheduled for April 20 and inquires about the appropriate timing for rescheduling it postoperatively. Major Risk Factors Obesity normal BMI: 21.13 kg/m2 High: BMI > 40 Moderate: BMI 30-40 Normal: BMI < 30 Diabetes normal Last HbA1C: - 01/27/2025 High: A1C > 8 Moderate: A1C 7-8 Normal: A1C < 7 Hx of DVT / PE normal High: dx of DVT / PE Normal: no dx of DVT / PE Smoking normal Last Status: Never High: Current smoker Normal: Non smoker Narcotics Use normal High:NarxCare >=300 Moderate: 100-299 Normal: 0-99 Depression High Risk High: PHQ-9 >14 Moderate: PHQ-9 5-14 Normal: PHQ-9 < 5 Data from [facility] Epic on prior therapies: PREVIOUS CONSERVATIVE TREATMENT: -Medication: Flexeril, Prednisone (for 2-3 months for lungs and recently completed), Tylenol -Physical therapy: 02/15/2025, 02/22/2025 for neck -02/15/2025 for low back -Pain Management: No recent participation -Injections: Lumbar FELECIA 4-5 years ago- no relief. Unsure of level. PREVIOUS SPINE SURGERY: None Surgical Risk Factors: Smoking status: Denies Anticoagulants/antiplatelets: Eliquis bid for afib in January 2024, ablation in 07/2024 Diabetic: Yes, last hgba1c 6.0% from 01/27/2025 Objective PHYSICAL EXAM There were no vitals taken for this visit. 5/5 motor strength in BUE and BLE except 3/5 right DF/EHL, 4/5 right PF, ambulates with cane SILT throughout extremities No UMN signs Results: MRI of cervical spine WO contrast from 02/01/2025: IMPRESSION: Multilevel degenerative changes of cervical spine, most significant at C5-C6, as detailed above. Kqog-aj-jgejpywp spinal canal stenosis at C5-C6, with mild mass effect on right aspect of spinal cord with mild spinal cord deformity. No convincing evidence of T2 hyperintense signal within cervical spinal cord. Presumed degenerative endplate changes at C5-C6. Early discitis is less likely. This can be clinically correlated. Anatomic Variant: None. Assume 7 cervical vertebrae with counting from the craniocervical junction. MRI of lumbar spine WO contrast from (more content not included)... [facility] 03-09-2025 Instructions Eden Lynch APRN.WINDOWS TECHNICAL SPECIALIST - 03/09/2025 3:15 PM EDT PATIENT PREOPERATIVE INSTRUCTIONS Your surgeon has scheduled for your procedure at this surgery center: [facility]: [phone], [address] [id number] Please read below carefully for your personalized instructions. Surgery Date: 03/30/25 Your surgeon's office will provide you with your ARRIVAL TIME for surgery. - If you have not received an arrival time by the afternoon before your surgery date, please follow up with your surgeon's office. - If you are scheduled for Thursday surgery, please make sure you have your arrival time by Thursday afternoon. - Please be aware that emergency situations arise, which may delay or change your surgical time. If this happens, your surgeon's office will notify you as soon as possible and regret any inconvenience. Dietary Restrictions: - No solid food after midnight. - You may have 12 ounces of clear liquids (water, clear juices such as apple juice or gatorade, carbonated beverages, clear tea, black coffee, jello) until 2 hours before scheduled arrival at facility. This is important because otherwise your surgery may have to be cancelled. Blood Thinning Medications: - Stop NSAIDS (Ibuprofen, Advil, Aleve, Motrin, Celebrex, Mobic, etc.) 7 days before surgery, or as directed by your surgeon. You may take Tylenol (Acetaminophen) or any of your pain medications that do not contain aspirin or NSAIDS as needed. IF YOU TAKE ANY OF THE FOLLOWING BLOOD THINNERS, PLEASE CONTACT YOUR SURGEON AND THE PHYSICIAN WHO PRESCRIBES IT FOR YOU IN ORDER TO GET PERIOPERATIVE INSTRUCTIONS SOON POSSIBLE. BLOOD THINNERS: Aspirin , Coumadin, Plavix, Eliquis, Pradaxa, Xarelto, Lovenox, Brilinta, Effient, Savaysa, Arixtra, etc - Stop Vitamin E, fish oil, multivitamins, Marijuana, CBD oil and other over the counter herbals and dietary supplements 7 days before surgery. - This would not apply to cancer patients who are prescribed Marinol or any other prescription form on marijuana or CBD. Medications: Pre Surgery Med Instructions Medication instructions albuterol HFA (PROVENTIL HFA, VENTOLIN HFA) 90 mcg/actuation inhaler Continue as prescribed. Bring to surgery. amLODIPine (NORVASC) 2.5 mg tablet Use day of surgery. apixaban (ELIQUIS) 5 mg tab(s) Follow surgeon's instructions. carvedilol (COREG) 12.5 mg tablet Use day of surgery. cholecalciferol (VITAMIN D3) 50 mcg (2,000 unit) tablet DO NOT TAKE THE MORNING OF SURGERY. cilostazol (PLETAL) 50 mg tablet Follow prescriber's instructions. cyclobenzaprine (FLEXERIL) 5 mg tablet Continue as prescribed. ezetimibe (ZETIA) 10 mg tablet Continue as prescribed. Ferrous Sulfate 142 mg (45 mg iron) TbER DO NOT TAKE THE MORNING OF SURGERY. furosemide (LASIX) 20 mg tablet DO NOT TAKE THE MORNING OF SURGERY. icosapent ethyl (VASCEPA) 1 gram capsule Stop 7 days before surgery. JENTADUETO XR 2.5-1,000 mg XR tab DO NOT TAKE THE MORNING OF SURGERY. KERENDIA 10 mg tablet DO NOT TAKE THE MORNING OF SURGERY. losartan (COZAAR) 100 mg tablet DO NOT TAKE THE MORNING OF SURGERY. pantoprazole DR (PROTONIX) 40 mg tablet Use day of surgery. rosuvastatin (CRESTOR) 10 mg tablet Continue as prescribed. sertraline (ZOLOFT) 25 mg tablet Continue as prescribed. SPIRIVA RESPIMAT 2.5 mcg/actuation inhaler Continue as prescribed. Bring to surgery. Approved medications to take the morning of surgery with a sip of water: BP, Heart, seizure, thyroid, psych and pain medications. Use inhalers as prescribed. Please bring inhalers. HOLD - OKSANA inhibitors (Angiotensin-converting enzyme inhibitors) and ARBs (Angiotensin II receptor blockers) Day of surgery. Use inhalers as prescribed. Please bring inhalers. Refer to surgeon and prescribing provider regarding Vivitrol/Naltrexone management prior to surgery. Vivitrol: Must be discontinued 30 days prior to elective surgery. Naltrexone: If bridging from Vivitrol, it should be stopped 3 days prior to surgery if opioids are expected post-operatively. Patients with Diabetes Mellitus: Please follow up with the provider that manages your diabetes and how to prepare you for surgery. Do not take the following medications Morning of surgery: Tradjenta/Linagliptin, Metformin, Actos/Pioglitazone, Amaryl/Glimepiride. For the following Medications, please HOLD 2 DAYS PRIOR TO SURGERY: Glucotrol/Glipizide, Januvia/Sitagliptin, Glyburide, Prandin/Repaglinide, Starlix/Nateglinide, Symlin/Pramlintide, Kazano ( Alogliptin/Metformin) For the following Medications, please HOLD 3 DAYS PRIOR TO SURGERY: Canagliflozin/Invokana, Dapagliflozin/Farxiga, Empagliflozin/Jardiance, Invokamet/ canagliflozin and metformin, Xigduo XR/ dapagliglozin and metformin, Glyxambi/ empagliflozin and metformin, Syndardy/ empagliflozin and metformin For the following Medications, please HOLD 4 DAYS PRIOR TO SURGERY: Ertugliflozin/Steglatro For the following Medications, please HOLD 7 DAYS PRIOR TO SURGERY: GLP-1 AGONIST: Adlyxin (lixisenatide), Bydureon BCise (exenatide suspension), Byetta (exenatide), Mounjaro (tirzepatide), Ozempic (semaglutide injection), Rybelsus (semaglutide tablets), Tanzeum (albiglutide), Trulicity (dulaglutide), Victoza (liraglutide), Wegovy (semaglutide), Saxenda (liraglutide), Xultophy (degludec/liraglutide) Insulin Medication Instructions: Please follow up with the provider that manages your Insulin and how to prepare you for surgery. If you start any new medications after today's visit, please contact the surgeon's office. Important Reminders: - If you have a stimulator, implant or pump that requires a remote, please bring the remote with you day of surgery. - If you use CPAP/BIPAP, bring the machine with you to the surgery center. - If you are prescribed inhalers for breathing, continue using them AND bring them to the surgery center. - Candy, mints, gum and tobacco products are NOT permitted the morning of surgery. - Hearing aids, dentures and glasses may be worn the morning of surgery. - NO jewelry, body piercings, makeup, hairpins or contacts are to be worn the day of surgery. - Oral hygiene and a shower or bath is required the evening before or the morning of surgery. - NO lotion, creams, powders or deodorants on the skin the day of surgery. - Wear loose, comfortable clothing that will accommodate bandages. - Your length of stay will be determined by your surgeon. - You will need to have someone else (Family or friend) to drive you home once discharged from the hospital. You cannot drive yourself home after surgery. - YOU MUST HAVE A RESPONSIBLE SPORTS HEALTH CLUB MEMBERSHIP ADVISORS TAKE YOU HOME. A OPTICAL MANAGER, CAB OR UBER SPORTS HEALTH CLUB MEMBERSHIP ADVISORS CANNOT BE MADE A RESPONSIBLE SPORTS HEALTH CLUB MEMBERSHIP ADVISORS. - If you are undergoing an outpatient procedure you must have someone drive you home and stay with you for the first 24 hours. Your ride home must be at least 18 years old or older. Your surgery may be cancelled if you do not have someone to drive you home or take care of you. - You cannot stay in a hotel alone after an outpatient surgery. - It is recommended patients have a 72-hour period between getting their vaccine and the date of surgery. Visitation: Visitors to any [facility] facility: Any individual who is sick should not visit. Visitors to patients with COVID-19 must follow these guidelines, which include wearing a mask, eye protection, gown and gloves. [facility] Visitation hours: 7 AM to 9 PM. Pre-Surgery Unit - Patients may have up to 2 visitors at a time. PACU recovery Unit - Patients may have up to 1-2 visitors at a time. [facility] [place] Pre-Surgery area - 1 visitor at a time due to limited space. PACU recovery area - No visitors due to limited space unless patient is a minor due to limited space. If you develop symptoms such as a fever, cold, or flu, or have other changes to your health within TWO DAYS of scheduled surgery or the morning of surgery, please contact the surgeon's office. Personal Belongings: - Leave ALL valuables and money at home or with family members. - You will need a form of ID and insurance card to check in the morning of surgery. - If you already have an Advance Directive, please fax a copy to [phone] or [facility] at [phone] or email to for it to be added to your chart. If you do not have an Advance Directive, you can find the appropriate form and more information at [email or web address]. We recommend that you complete the Advance Directive form found on the website and bring it with you the day of your surgery. It can be witnessed and scanned into your chart that day. Hibiclens provided The anti-bacterial soap (Hibiclens) should be used TWICE prior to surgery: The night before surgery and the morning of surgery: - If you plan to wash your hair, do so with your regular shampoo. Then rinse hair and body thoroughly to remove any shampoo residue - Wash your face with water or your regular soap - Thoroughly rinse your body with water from the neck down - Apply Hibiclens directly on your skin or on a wet washcloth and wash gently. Move away from the shower stream when applying Hibiclens to ensure the CHG binds to the skin. - Pay special attention to the area where your surgery will be performed - Rinse thoroughly - Apply clean bedding and clean clothing after shower Do not use your regular soap after applying and rinsing Hibiclens. Do not apply any lotions, deodorants, powders, or perfumes to the body areas that have been cleaned with Hibiclens. Do not use Hibiclens: - If you are allergic to Chlorhexidine gluconate or any other ingredient in this preparation - In contact with the meninges - In the genital area - On wounds that involve more than the superficial layers of the skin Please review Hibiclens pamphlet prior to use. Eden Lynch APRN.CNP 03/09/25 documented in this encounter [facility] 03-09-2025 Note HNO ID: [id number] Author: HALEY DEAN, PT Service: ? Author Type: Physical Therapist Type: Progress Notes Filed: 03/09/2025 11:38 Note Text: Episode Visit Count: 3 Therapist That Will Accept/Oversee The Plan Of Care: Haley Dean Start of Care Date: 02/15/25 Onset Date: 02/15/18 Plan of Care Certification Date: 02/15/25 Next Certification Due Date: 03/29/25 Patient Identified by Name and Date of : Yes REHABILITATION AND SPORTS THERAPY PHYSICAL THERAPY TREATMENT NOTE ASSESSMENT: Rolando Peters tolerated the session with fatigue and expected muscle soreness. She demonstrated difficulty with form with UT, but better when demonstration given. The patient will continue to benefit from ongoing skilled physical therapy to progress toward set goals. PLAN FOR NEXT VISIT: D/C per pt request SUBJECTIVE: Pt reports that her R leg and foot are really bothering her today. Pt states that she has not really done her HEP due to increase in doctors appointments and her RLE bothering her. PT would like this to be her last visit due to other health concerns and not being able to complete HEP. Pain: Pain Pain Level: 0 Pain Location: Low Back/Lumbar Spine - Right Pain Level 2: 7 Pain Location 2: Leg - Right Frequency 2: Sitting, With movement OBJECTIVE MEASURES WITH LEVEL OF FUNCTION: Improved lumbar flexibility with seated, repeated lumbar flexion TREATMENT: Therapeutic Exercise: 1: scifit stepper, 5 min, 1:1 throughout, subjective collected, seat 13, level 1 2: Seated UT stretch 3x30 seconds B 3: Seated, repeated lumbar flexion x10 with 10 second holds 4: seated TA activation 2x10 5: LAQ x10 B Skilled Intervention: Patient was educated in proper exercise technique and purpose for exercises. Skilled judgment was used in selection of appropriate interventions. Correct performance of therapeutic exercises was facilitated with verbal and visual cuing. Billing Therapeutic Exercise Treatment Minutes: 35 Skilled Treatment Time Minutes (timed and untimed codes): 335 Total Session Time (minutes): 35 Session Start Time : 1100 Session Stop Time : 1135 Mirna Naik, KATINA Dean, PT [facility] 03-09-2025 History of Presen t illness Narrative Episode Visit Count: 3 Therapist That Will Accept/Oversee The Plan Of Care: Haley Dean Start of Care Date: 02/15/25 Onset Date: 02/15/18 Plan of Care Certification Date: 02/15/25 Next Certification Due Date: 03/29/25 Patient Identified by Name and Date of : Yes REHABILITATION AND SPORTS THERAPY PHYSICAL THERAPY TREATMENT NOTE ASSESSMENT: Rolando Peters tolerated the session with fatigue and expected muscle soreness. She demonstrated difficulty with form with UT, but better when demonstration given. The patient will continue to benefit from ongoing skilled physical therapy to progress toward set goals. PLAN FOR NEXT VISIT: D/C per pt request SUBJECTIVE: Pt reports that her R leg and foot are really bothering her today. Pt states that she has not really done her HEP due to increase in doctors appointments and her RLE bothering her. PT would like this to be her last visit due to other health concerns and not being able to complete HEP. Pain: Pain Pain Level: 0 Pain Location: Low Back/Lumbar Spine - Right Pain Level 2: 7 Pain Location 2: Leg - Right Frequency 2: Sitting, With movement OBJECTIVE MEASURES WITH LEVEL OF FUNCTION: Improved lumbar flexibility with seated, repeated lumbar flexion TREATMENT: Therapeutic Exercise: 1: scifit stepper, 5 min, 1:1 throughout, subjective collected, seat 13, level 1 2: Seated UT stretch 3x30 seconds B 3: Seated, repeated lumbar flexion x10 with 10 second holds 4: seated TA activation 2x10 5: LAQ x10 B Skilled Intervention: Patient was educated in proper exercise technique and purpose for exercises. Skilled judgment was used in selection of appropriate interventions. Correct performance of therapeutic exercises was facilitated with verbal and visual cuing. Billing Therapeutic Exercise Treatment Minutes: 35 Skilled Treatment Time Minutes (timed and untimed codes): 335 Total Session Time (minutes): 35 Session Start Time : 1100 Session Stop Time : 1135 Mirna Naik SHIFT SUPERINTENDENT CAUSTIC CRESYLATE Haley Dean, PT documented in this encounter [facility] 03-09-2025 Telephone encounter Note Message from Dr. Jerome copied here: Pletal ok to use. She has recovered LVEF and is stable on her HF meds. Would like copies of recent [facility] office visit and test results for our records (PVRs, CTA of LE if done and vascular related formal testing), this does not seem to cross over into CareEverywhere as their office does not use [employer] and does not share their information electronically via the [employer] where we get most other practices submit their pt data. I called [phone] to talk with Cassandra at [facility]. She will call me back. 11:09 AM Cassandra called back and I relayed to her the response from Dr. Jerome. Cassandra was thankful for the call back. She will fax the testing and office notes to us so we can scan them in. [facility] 03-09-2025 Miscellaneous Notes Message from Dr. Jerome copied here: Pletal ok to use. She has recovered LVEF and is stable on her HF meds. Would like copies of recent [facility] office visit and test results for our records (PVRs, CTA of LE if done and vascular related formal testing), this does not seem to cross over into CareEverywhere as their office does not use [employer] and does not share their information electronically via the [employer] where we get most other practices submit their pt data. I called [phone] to talk with Cassandra at [facility]. She will call me back. 11:09 AM Cassandra called back and I relayed to her the response from Dr. Jerome. Cassandra was thankful for the call back. She will fax the testing and office notes to us so we can scan them in. I called and spoke with Cassandra at [facility]. Cassandra said that Rolando has severe peripheral vascular disease. JUSTYNA 0.2 on Right. Right foot is painful and decreased circulation per Cassandra. Cassandra is asking if Dr. Jerome would approve adding Pletal to decrease pain. Cassandra also said they may need to do surgery and they may be sending a surgery clearance in the future. Received a phone call from Cassandra with [facility]. She was calling in wanting to get Dr. Jerome's opinion on switching medications for patient/adding on new medication. Provided call back number [phone]. Thank you! documented in this encounter [facility] 03-09-2025 Telephone encounter Note I called and spoke with Cassandra at [facility]. Cassandra said that Rolando has severe peripheral vascular disease. JUSTYNA 0.2 on Right. Right foot is painful and decreased circulation per Cassandra. Cassandra is asking if Dr. Jerome would approve adding Pletal to decrease pain. Cassandra also said they may need to do surgery and they may be sending a surgery clearance in the future. [facility] 03-09-2025 Telephone encounter Note Received a phone call from Cassandra with [facility]. She was calling in wanting to get Dr. Jerome's opinion on switching medications for patient/adding on new medication. Provided call back number [phone]. Thank you! 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 Dominick Huggins signed surgical clearance to [phone] documented in this encounterSSt. John of God [id number] Telephone encounter Note* Telephone Encounter - Corry Pat - 03/03/2025 4:40 PM EDT Sent Fax to [facility] Dr. Dominick Huggins signed surgical clearance to [phone] [facility] [id number] Telephone encounter Note* Telephone Encounter - Dorita Leslie - 03/02/2025 1:42 PM EDT Attempted to return patient's call regarding questions about her clearances for surgery. Patient did not answer. Left message with office phone number and my extension for a return call. [facility]07-17-2025 Miscellaneous Notes* Telephone Encounter - Dorita Leslie - 03/02/2025 1:42 PM EDT Attempted to return patient's call regarding questions about her clearances for surgery. Patient did not answer. Left message with office phone number and my extension for a return call. documented in this encounterSumma [facility]07-10-2025 NoteHNO ID: [id number] Author: DARRION NEVAREZ RN Service: ? Author Type: Registered Nurse Type: Progress Notes Filed: 02/23/2025 17:14 Note Text: Patient is scheduled to undergo cervical surgery with Dr. Huggins on 03/30/2025. Presurgical testing is scheduled for 03/10/2025. PST orders placed. Notified Dr. Huggins's coordinator, Jen, of patient needing PCP, Cardiology, Pulmonology and Hem/Onc clearances. Sign consent on 03/10/2025. Darrion Nevarez, [facility]07-10-2025 History of Present illness Narrative* Darrion Nevarez RN - 02/23/2025 5:10 PM EDT Patient is scheduled to undergo cervical surgery with Dr. Huggins on 03/30/2025. Presurgical testing is scheduled for 03/10/2025. PST orders placed. Notified Dr. Huggins's coordinator, Jen, of patient needing PCP, Cardiology, Pulmonology and Hem/Onc clearances. Sign consent on 03/10/2025. Darrion Nevarez RN documented in this encounterSumma [facility]07-09-2025 NoteHNO ID: [id number] Author: HALEY DEAN PT Service: ? Author Type: Physical Therapist Type: Progress Notes Filed: 02/22/2025 11:10 Note Text: Episode Visit Count: 2 Therapist That Will Accept/Oversee The Plan Of Care: Haley Dean Start of Care Date: 02/15/25 Onset Date: 02/15/18 Plan of Care Certification Date: 02/15/25 Next Certification Due Date: 03/29/25 REHABILITATION AND SPORTS THERAPY PHYSICAL THERAPY TREATMENT NOTE ASSESSMENT: Rolando Peters tolerated the session with increased symptoms. She demonstrated difficulty with tolerating standing exercises but participated with encouragement as well as intermittent seated exercises between standing exercises. The patient will continue to benefit from ongoing skilled physical therapy to progress toward set goals. Current Frequency: 1x/week PLAN FOR NEXT VISIT: continue to alt standing and seated exercises, pt. requires encouragement. assess compliance with HEP. Pt. prefers to use cane on right side (painful side) SUBJECTIVE: Pt. reports a nurse put in an order for her to go the wound center. The RLE is bothering her. She is too weak to walk from the waiting room to the treatment room and required to be wheeled in w/c. She admits to not doing her HEP she put the paper in her purse and never did them. The low back is not bothering her before she is moving this morning. Continues to resolve with rest. Patient Goals: reduce RLE and R LBP Functional Limitations: walking, sleeping, walking in the house, walking in the community Pain: Pain Pain Level: 0 Pain Location: Low Back/Lumbar Spine - Right Description: Aching Frequency: With movement Additional Pain Information : Location 2 Pain Level 2: 5 Pain Location 2: Foot - Right Description 2: Aching Frequency 2: With movement Post Treatment Pain Post Treatment Pain Level: 7 Post Treatment Pain Location: Low Back/Lumbar Spine - Right Post Treatment Pain Score 2: 7/10 Post Treatment Pain Location 2: Leg - Right OBJECTIVE MEASURES WITH LEVEL OF FUNCTION: TREATMENT: Therapeutic Exercise: 1: scifit stepper, 5 min, 1:1 throughout, subjective collected, seat 13, level 1 2: standing in // bars 2x12 heel raises 3: seated ankle toe raises 2x12 4: seated B hip adduction 2x15 5: seated TA activation 4x10 6: standing hip abd at // bars 2x12 7: seated LAQ 2x12 each side Skilled Intervention: Patient was educated in proper exercise technique and purpose for exercises. Skilled judgment was used in selection of appropriate interventions. Provided written instruction for home exercise program to facilitate proper performance and compliance. Correct performance of therapeutic exercises was facilitated with verbal, visual, and tactile cuing. Educated patient on rationale for performing exercises in regards to decreasing fatigue , including balance, increase ease of ADL, and ROM and function . Patient education as noted. Therapeutic Activity: 1: pivot transfer x8 2: sit <> stand x 8x Skilled Intervention: Proper patient guarding to prevent falls/increase patient safety with stand by assist to assist patient while performing sit <> stand and pivot transfers. Ensured patient safety with use of gait belt and // bars. Gait Training: Distance (feet): 20' 2x Gait Cues: use of cane on L side -- pt. unable to do safely and therefore switched back to R side Assistive Device: cane Assist Level: CGA Skilled Intervention: Patient was provided contact guard assistance during pre-gait/gait training to prevent falls and insure safety. Facilitated proper gait cycle with the use of verbal, visual, and tactile cues for correction of gait deviations identified in the objective section above. Gait belt utilized during session for safety. Self-Chcf Management: 1: discussed why standing exercises are required for pt .to reach her goal of walking 2: encouraged pt. to complete HEP 3: discussed that exercises during visits and for HEP can be modified to be effective but not overwhelming Skilled Intervention: Skilled judgment in the selection of proper modification for activity of daily living/home management based on clinical presentation, deficits, and needs. Provided written instruction for activities of daily living techniques to facilitate proper performance and compliance. Reviewed patient specific diagnosis in relation to activities of daily living/home management. Activity progression based on professional judgement. Billing Therapeutic Exercise Treatment Minutes: 20 Therapeutic Activity Treatment Minutes: 10 Self-Care/Home Management Treatment Minutes: 4 Gait Training Treatment Minutes: 5 Skilled Treatment Time Minutes (timed and untimed codes): 39 Total Session Time (minutes): 39 Session Start Time : 1031 Session Stop Time : 1110 Haley Dean, [facility]07-09-2025 History of Present illness Narrative* Haley Dean, PT - 02/22/2025 10:32 AM EDT Episode Visit Count: 2 Therapist That Will Accept/Oversee The Plan Of Care: Haley Dean Start of Care Date: 02/15/25 Onset Date: 02/15/18 Plan of Care Certification Date: 02/15/25 Next Certification Due Date: 03/29/25 REHABILITATION AND SPORTS THERAPY PHYSICAL THERAPY TREATMENT NOTE ASSESSMENT: Rolando Peters tolerated the session with increased symptoms. She demonstrated difficulty with tolerating standing exercises but participated with encouragement as well as intermittent seated exercises between standing exercises. The patient will continue to benefit from ongoing skilledphysical therapy to progress toward set goals. Current Frequency: 1x/week PLAN FOR NEXT VISIT: continue to alt standing and seated exercises, pt. requires encouragement. assess compliance with HEP. Pt. prefers to use cane on right side (painful side) SUBJECTIVE: Pt. reports a nurse put in an order for her to go the wound center. The RLE is bothering her. She is too weak to walk from the waiting room to the treatment room and required to be wheeled in w/c. She admits to not doing her HEP she put the paper in her purse and never did them. The lowback is not bothering her before she is moving this morning. Continues to resolve with rest. Patient Goals: reduce RLE and R LBP Functional Limitations: walking, sleeping, walking in the house, walking in the community Pain: Pain Pain Level: 0 Pain Location: Low Back/Lumbar Spine - Right Description: Aching Frequency: With movement Additional Pain Information : Location 2 Pain Level 2: 5 Pain Location 2: Foot - Right Description 2: Aching Frequency 2: With movement Post Treatment Pain Post Treatment Pain Level: 7 Post Treatment Pain Location: Low Back/Lumbar Spine - Right Post Treatment Pain Score 2: 7/10 Post Treatment Pain Location 2: Leg - Right OBJECTIVE MEASURES WITH LEVEL OF FUNCTION: TREATMENT: Therapeutic Exercise: 1: scifit stepper, 5 min, 1:1 throughout, subjective collected, seat 13, level 1 2: standing in // bars 2x12 heel raises 3: seated ankle toe raises 2x12 4: seated B hip adduction 2x15 5: seated TA activation 4x10 6: standing hip abd at // bars 2x12 7: seated LAQ 2x12 each side Skilled Intervention: Patient was educated in proper exercise technique and purpose for exercises. Skilled judgment was used in selection of appropriate interventions. Provided written instruction for home exercise program to facilitate proper performance and compliance. Correct performance of therapeutic exercises was facilitated with verbal, visual, and tactile cuing. Educated patient on rationale for performing exercises in regards to decreasing fatigue , includingbalance, increase ease of ADL, and ROM and function . Patient education as noted. Therapeutic Activity: 1: pivot transfer x8 2: sit <> stand x 8x Skilled Intervention: Proper patient guarding to prevent falls/increase patient safety with stand by assist to assist patient while performing sit <> stand and pivot transfers. Ensured patient safety with use of gait belt and // bars. Gait Training: Distance (feet): 20' 2x Gait Cues: use of cane on L side -- pt. unable to do safely and therefore switched back to R side Assistive Device: cane Assist Level: CGA Skilled Intervention: Patient was provided contact guard assistance during pre- gait/gait training to prevent falls and insure safety. Facilitated proper gait cycle with the use of verbal, visual, and tactile cues for correction of gait deviations identified in the objective section above. Gait belt utilized during session for safety. Self-Chcf Management: 1: discussed why standing exercises are required for pt .to reach her goal of walking 2: encouraged pt. to complete HEP 3: discussed that exercises during visits and for HEP can be modified to be effective but not overwhelming Skilled Intervention: Skilled judgment in the selection of proper modification for activity of daily living/home management based on clinical presentation, deficits, and needs. Provided written instruction for activities of daily living techniques to facilitate proper performance and compliance. Reviewed patient specific diagnosis in relation to activities of daily living/home management. Activity progression based on professional judgement. Billing Therapeutic Exercise Treatment Minutes: 20 Therapeutic Activity Treatment Minutes: 10 Self-Care/Home Management Treatment Minutes: 4 Gait Training Treatment Minutes: 5 Skilled Treatment Time Minutes (timed and untimed codes): 39 Total Session Time (minutes): 39 Session Start Time : 1031 Session Stop Time : 1110 Haley Dean PT documented in this encounterSumma [facility]07-07-2025 History of Present illness Narrative* Celia Al, DO - 02/20/2025 1:40 PM EDT Subjective Patient ID: Rolando Peters is a 80 y.o. female who presents for Follow up right foot. (Foot is still red and swollen. Finished antibiotic Thursday. ). HPI Patient was recently seen for abrasion on her toe was given antibiotics and antibiotic cream. Has been doing well still a bit red. Review of Systems Constitutional: Negative for activity change, appetite change, fatigue and fever. HENT: Negative for congestion. Respiratory: Negative for cough, choking and chest tightness. Cardiovascular: Negative for chest pain, palpitations and leg swelling. Musculoskeletal: Negative for arthralgias, back pain and gait problem. Skin: Positive for wound. Negative for color change and pallor. Right great toe cut Neurological: Negative for dizziness, facial asymmetry, light-headedness and headaches. Objective BP 120/52 (BP Location: Left arm, Patient Position: Sitting) Pulse 53 Temp 36.2 C (97.2 F) Wt58 kg (127 lb 12.8 oz) BMI 20.02 kg/m BSA Body surface area is 1.66 meters squared. Physical Exam Constitutional: General: She is not in acute distress. Appearance: Normal appearance. She is not toxic-appearing. HENT: Head: Normocephalic. Right Ear: Tympanic membrane, ear canal and external ear normal. Left Ear: Tympanic membrane, ear canal and external ear normal. Eyes: Conjunctiva/sclera: Conjunctivae normal. Pupils: Pupils are equal, round, and reactive to light. Cardiovascular: Rate and Rhythm: Normal rate and regular rhythm. Pulses: Normal pulses. Heart sounds: Normal heart sounds. Pulmonary: Effort: No respiratory distress. Breath sounds: No wheezing, rhonchi or rales. Abdominal: General: Bowel sounds are normal. There is no distension. Palpations: Abdomen is soft. Tenderness: There is no abdominal tenderness. Musculoskeletal: General: No swelling or tenderness. Skin: Findings: Lesion present. No rash. Comments: Right great toe cut 1/2 scabbed with surrounding erythema Neurological: General: No focal deficit present. Mental Status: She is alert and oriented to person, place, and time. Mental status is at baseline. Gait: Gait abnormal. Psychiatric: Mood and Affect: Mood normal. Behavior: Behavior normal. Thought Content: Thought content normal. Judgment: Judgment normal. Orders Only on 02/14/2025 Component Date Value Ref Range Status WHITE BLOOD CELL COUNT 02/16/2025 5.9 3.8 - 10.8 Thousand/uL Final RED BLOOD CELL COUNT 02/16/2025 2.90 (L) 3.80 - 5.10 Million/uL Final HEMOGLOBIN 02/16/2025 7.7 (L) 11.7 - 15.5 g/dL Final HEMATOCRIT 02/16/2025 25.3 (L) 35.0 - 45.0 % Final MCV 02/16/2025 87.2 80.0 - 100.0 fL Final MCH 02/16/2025 26.6 (L) 27.0 - 33.0 pg Final MCHC 02/16/2025 30.4 (L) 32.0 - 36.0 g/dL Final Comment: For adults, a slight decrease in the calculated MCHC value (in the range of 30 to 32 g/dL) is most likely not clinically significant; however, it should be interpreted with caution in correlation with other red cell parameters and the patient's clinical condition. RDW 02/16/2025 15.3 (H) 11.0 - 15.0 % Final PLATELET COUNT 02/16/2025 304 140 - 400 Thousand/uL Final MPV 02/16/2025 9.6 7.5 - 12.5 fL Final ABSOLUTE NEUTROPHILS 02/16/2025 4,260 1,500 - 7,800 cells/uL Final ABSOLUTE LYMPHOCYTES 02/16/2025 997 850 - 3,900 cells/uL Final ABSOLUTE MONOCYTES 02/16/2025 478 200 - 950 cells/uL Final ABSOLUTE EOSINOPHILS 02/16/2025 77 15 - 500 cells/uL Final ABSOLUTE BASOPHILS 02/16/2025 89 0 - 200 cells/uL Final NEUTROPHILS 02/16/2025 72.2 % Final LYMPHOCYTES 02/16/2025 16.9 % Final MONOCYTES 02/16/2025 8.1 % Final EOSINOPHILS 02/16/2025 1.3 % Final BASOPHILS 02/16/2025 1.5 % Final Office Visit on 01/27/2025 Component Date Value Ref Range Status WHITE BLOOD CELL COUNT 01/27/2025 6.3 3.8 - 10.8 Thousand/uL Final RED BLOOD CELL COUNT 01/27/2025 3.09 (L) 3.80 - 5.10 Million/uL Final HEMOGLOBIN 01/27/2025 8.2 (L) 11.7 - 15.5 g/dL Final HEMATOCRIT 01/27/2025 27.5 (L) 35.0 - 45.0 % Final MCV 01/27/2025 89.0 80.0 - 100.0 fL Final MCH 01/27/2025 26.5 (L) 27.0 - 33.0 pg Final MCHC 01/27/2025 29.8 (L) 32.0 - 36.0 g/dL Final Comment: For adults, a slight decrease in the calculated MCHC value (in the range of 30 to 32 g/dL) is most likely not clinically significant; however, it should be interpreted with caution in correlation with other red cell parameters and the patient's clinical condition. RDW 01/27/2025 14.9 11.0 - 15.0 % Final PLATELET COUNT 01/27/2025 270 140 - 400 Thousand/uL Final MPV 01/27/2025 9.2 7.5 - 12.5 fL Final ABSOLUTE NEUTROPHILS 01/27/2025 4,712 1,500 - 7,800 cells/uL Final ABSOLUTE LYMPHOCYTES 01/27/2025 781 (L) 850 - 3,900 cells/uL Final ABSOLUTE MONOCYTES 01/27/2025 561 200 - 950 cells/uL Final ABSOLUTE EOSINOPHILS 01/27/2025 164 15 - 500 cells/uL Final ABSOLUTE BASOPHILS 01/27/2025 82 0 - 200 cells/uL Final NEUTROPHILS 01/27/2025 74.8 % Final LYMPHOCYTES 01/27/2025 12.4 % Final MONOCYTES 01/27/2025 8.9 % Final EOSINOPHILS 01/27/2025 2.6 % Final BASOPHILS 01/27/2025 1.3 % Final IRON, TOTAL 01/27/2025 27 (L) 45 - 160 mcg/dL Final IRON BINDING CAPACITY 01/27/2025 384 250 - 450 mcg/dL (calc) Final % SATURATION 01/27/2025 7 (L) 16 - 45 % (calc) Final FERRITIN 01/27/2025 55 16 - 288 ng/mL Final Orders Only on 01/16/2025 Component Date Value Ref Range Status WHITE BLOOD CELL COUNT 01/16/2025 8.3 3.8 - 10.8 Thousand/uL Final RED BLOOD CELL COUNT 01/16/2025 2.37 (L) 3.80 - 5.10 Million/uL Final HEMOGLOBIN 01/16/2025 6.1 (L) 11.7 - 15.5 g/dL Final Comment: Verified by repeat analysis. HEMATOCRIT 01/16/2025 20.5 (L) 35.0 - 45.0 % Final MCV 01/16/2025 86.5 80.0 - 100.0 fL Final MCH 01/16/2025 25.7 (L) 27.0 - 33.0 pg Final MCHC 01/16/2025 29.8 (L) 32.0 - 36.0 g/dL Final Comment: For adults, a slight decrease in the calculated MCHC value (in the range of 30 to 32 g/dL) is most likely not clinically significant; however, it should be interpreted with caution in correlation with other red cell parameters and the patient's clinical condition. RDW 01/16/2025 14.9 11.0 - 15.0 % Final PLATELET COUNT 01/16/2025 337 140 - 400 Thousand/uL Final MPV 01/16/2025 9.3 7.5 - 12.5 fL Final ABSOLUTE NEUTROPHILS 01/16/2025 6,557 1,500 - 7,800 cells/uL Final ABSOLUTE LYMPHOCYTES 01/16/2025 813 (L) 850 - 3,900 cells/uL Final ABSOLUTE MONOCYTES 01/16/2025 730 200 - 950 cells/uL Final ABSOLUTE EOSINOPHILS 01/16/2025 133 15 - 500 cells/uL Final ABSOLUTE BASOPHILS 01/16/2025 66 0 - 200 cells/uL Final NEUTROPHILS 01/16/2025 79 % Final LYMPHOCYTES 01/16/2025 9.8 % Final MONOCYTES 01/16/2025 8.8 % Final EOSINOPHILS 01/16/2025 1.6 % Final BASOPHILS 01/16/2025 0.8 % Final COMMENT(S) 01/16/2025 Final Ovalocytes 2 + Orders Only on 12/12/2024 Component Date Value Ref Range Status WHITE BLOOD CELL COUNT 12/15/2024 9.9 3.8 - 10.8 Thousand/uL Final RED BLOOD CELL COUNT 12/15/2024 3.04 (L) 3.80 - 5.10 Million/uL Final HEMOGLOBIN 12/15/2024 8.3 (L) 11.7 - 15.5 g/dL Final HEMATOCRIT 12/15/2024 27.4 (L) 35.0 - 45.0 % Final MCV 12/15/2024 90.1 80.0 - 100.0 fL Final MCH 12/15/2024 27.3 27.0 - 33.0 pg Final MCHC 12/15/2024 30.3 (L) 32.0 - 36.0 g/dL Final Comment: For adults, a slight decrease in the calculated MCHC value (in the range of 30 to 32 g/dL) is most likely not clinically significant; however, it should be interpreted with caution in correlation with other red cell parameters and the patient's clinical condition. RDW 12/15/2024 15.1 (H) 11.0 - 15.0 % Final PLATELET COUNT 12/15/2024 264 140 - 400 Thousand/uL Final MPV 12/15/2024 9.1 7.5 - 12.5 fL Final ABSOLUTE NEUTROPHILS 12/15/2024 7,504 1,500 - 7,800 cells/uL Final ABSOLUTE LYMPHOCYTES 12/15/2024 1,406 850 - 3,900 cells/uL Final ABSOLUTE MONOCYTES 12/15/2024 861 200 - 950 cells/uL Final ABSOLUTE EOSINOPHILS 12/15/2024 89 15 - 500 cells/uL Final ABSOLUTE BASOPHILS 12/15/2024 40 0 - 200 cells/uL Final NEUTROPHILS 12/15/2024 75.8 % Final LYMPHOCYTES 12/15/2024 14.2 % Final MONOCYTES 12/15/2024 8.7 % Final EOSINOPHILS 12/15/2024 0.9 % Final BASOPHILS 12/15/2024 0.4 % Final Office Visit on 11/18/2024 Component Date Value Ref Range Status POC Glucose, Urine 11/18/2024 NEGATIVE NEGATIVE mg/dl Final Neg POC Bilirubin, Urine 11/18/2024 NEGATIVE NEGATIVE Final POC Ketones, Urine 11/18/2024 NEGATIVE NEGATIVE mg/dl Final POC Specific [place], Urine 11/18/2024 1.010 1.005 - 1.035 Final POC Blood, Urine 11/18/2024 NEGATIVE NEGATIVE Final POC PH, Urine 11/18/2024 5.5 No Reference Range Established PH Final POC Protein, Urine 11/18/2024 30 (1+) (A) NEGATIVE mg/dl Final POC Urobilinogen, Urine 11/18/2024 0.2 0.2, 1.0 EU/DL Final Poc Nitrite, Urine 11/18/2024 NEGATIVE NEGATIVE Final POC Leukocytes, Urine 11/18/2024 NEGATIVE NEGATIVE Final WHITE BLOOD CELL COUNT 11/25/2024 11.5 (H) 3.8 - 10.8 Thousand/uL Final RED BLOOD CELL COUNT 11/25/2024 3.01 (L) 3.80 - 5.10 Million/uL Final HEMOGLOBIN 11/25/2024 8.3 (L) 11.7 - 15.5 g/dL Final HEMATOCRIT 11/25/2024 26.8 (L) 35.0 - 45.0 % Final MCV 11/25/2024 89.0 80.0 - 100.0 fL Final MCH 11/25/2024 27.6 27.0 - 33.0 pg Final MCHC 11/25/2024 31.0 (L) 32.0 - 36.0 g/dL Final Comment: For adults, a slight decrease in the calculated MCHC value (in the range of 30 to 32 g/dL) is most likely not clinically significant; however, it should be interpreted with caution in correlation with other red cell parameters and the patient's clinical condition. RDW 11/25/2024 15.0 11.0 - 15.0 % Final PLATELET COUNT 11/25/2024 324 140 - 400 Thousand/uL Final MPV 11/25/2024 9.9 7.5 - 12.5 fL Final ABSOLUTE NEUTROPHILS 11/25/2024 8,809 (H) 1,500 - 7,800 cells/uL Final ABSOLUTE LYMPHOCYTES 11/25/2024 1,702 850 - 3,900 cells/uL Final ABSOLUTE MONOCYTES 11/25/2024 817 200 - 950 cells/uL Final ABSOLUTE EOSINOPHILS 11/25/2024 127 15 - 500 cells/uL Final ABSOLUTE BASOPHILS 11/25/2024 46 0 - 200 cells/uL Final NEUTROPHILS 11/25/2024 76.6 % Final LYMPHOCYTES 11/25/2024 14.8 % Final MONOCYTES 11/25/2024 7.1 % Final EOSINOPHILS 11/25/2024 1.1 % Final BASOPHILS 11/25/2024 0.4 % Final GLUCOSE 11/25/2024 90 65 - 99 mg/dL Final Comment: Fasting reference interval UREA NITROGEN (BUN) 11/25/2024 30 (H) 7 - 25 mg/dL Final CREATININE 11/25/2024 0.98 0.60 - 1.00 mg/dL Final EGFR 11/25/2024 59 (L) > OR = 60 mL/min/1.73m2 Final SODIUM 11/25/2024 137 135 - 146 mmol/L Final POTASSIUM 11/25/2024 4.0 3.5 - 5.3 mmol/L Final CHLORIDE 11/25/2024 108 98 - 110 mmol/L Final CARBON DIOXIDE 11/25/2024 20 20 - 32 mmol/L Final ELECTROLYTE BALANCE 11/25/2024 9 7 - 17 mmol/L (calc) Final CALCIUM 11/25/2024 8.9 8.6 - 10.4 mg/dL Final PROTEIN, TOTAL 11/25/2024 5.7 (L) 6.1 - 8.1 g/dL Final ALBUMIN 11/25/2024 3.7 3.6 - 5.1 g/dL Final BILIRUBIN, TOTAL 11/25/2024 0.6 0.2 - 1.2 mg/dL Final ALKALINE PHOSPHATASE 11/25/2024 41 37 - 153 U/L Final AST 11/25/2024 12 10 - 35 U/L Final ALT 11/25/2024 13 6 - 29 U/L Final Orders Only on 11/16/2024 Component Date Value Ref Range Status CHOLESTEROL, TOTAL 11/16/2024 129 <200 mg/dL Final HDL CHOLESTEROL 11/16/2024 57 > OR = 50 mg/dL Final TRIGLYCERIDES 11/16/2024 94 <150 mg/dL Final LDL-CHOLESTEROL 11/16/2024 54 mg/dL (calc) Final Comment: Reference range: <100 Desirable range <100 mg/dL for primary prevention; <70 mg/dL for patients with CHD or diabetic patients with > or = 2 CHD risk factors. LDL-C is now calculated using the Jefferson calculation, which is a validated novel method providing better accuracy than the Friedewald equation in the estimation of LDL-C. Balbir OLSON et al. SARAH. 2013;310(19): 3637-3039 (http://education.[employer]/faq/BDL933) CHOL/HDLC RATIO 11/16/2024 2.3 <5.0 (calc) Final NON HDL CHOLESTEROL 11/16/2024 72 <130 mg/dL (calc) Final Comment: For patients with diabetes plus 1 major ASCVD risk factor, treating to a non-HDL-C goal of <100 mg/dL (LDL-C of <70 mg/dL) is considered a therapeutic option. GLUCOSE 11/16/2024 91 65 - 99 mg/dL Final Comment: Fasting reference interval UREA NITROGEN (BUN) 11/16/2024 23 7 - 25 mg/dL Final CREATININE 11/16/2024 0.93 0.60 - 1.00 mg/dL Final EGFR 11/16/2024 63 > OR = 60 mL/min/1.73m2 Final SODIUM 11/16/2024 139 135 - 146 mmol/L Final POTASSIUM 11/16/2024 4.0 3.5 - 5.3 mmol/L Final CHLORIDE 11/16/2024 106 98 - 110 mmol/L Final CARBON DIOXIDE 11/16/2024 24 20 - 32 mmol/L Final ELECTROLYTE BALANCE 11/16/2024 9 7 - 17 mmol/L (calc) Final CALCIUM 11/16/2024 8.7 8.6 - 10.4 mg/dL Final PROTEIN, TOTAL 11/16/2024 5.4 (L) 6.1 - 8.1 g/dL Final ALBUMIN 11/16/2024 3.6 3.6 - 5.1 g/dL Final BILIRUBIN, TOTAL 11/16/2024 0.6 0.2 - 1.2 mg/dL Final ALKALINE PHOSPHATASE 11/16/2024 43 37 - 153 U/L Final AST 11/16/2024 12 10 - 35 U/L Final ALT 11/16/2024 18 6 - 29 U/L Final WHITE BLOOD CELL COUNT 11/16/2024 12.4 (H) 3.8 - 10.8 Thousand/uL Final RED BLOOD CELL COUNT 11/16/2024 2.68 (L) 3.80 - 5.10 Million/uL Final HEMOGLOBIN 11/16/2024 7.4 (L) 11.7 - 15.5 g/dL Final HEMATOCRIT 11/16/2024 24.1 (L) 35.0 - 45.0 % Final MCV 11/16/2024 89.9 80.0 - 100.0 fL Final MCH 11/16/2024 27.6 27.0 - 33.0 pg Final MCHC 11/16/2024 30.7 (L) 32.0 - 36.0 g/dL Final Comment: For adults, a slight decrease in the calculated MCHC value (in the range of 30 to 32 g/dL) is most likely not clinically significant; however, it should be interpreted with caution in correlation with other red cell parameters and the patient's clinical condition. RDW 11/16/2024 15.1 (H) 11.0 - 15.0 % Final PLATELET COUNT 11/16/2024 280 140 - 400 Thousand/uL Final MPV 11/16/2024 9.5 7.5 - 12.5 fL Final ABSOLUTE NEUTROPHILS 11/16/2024 10,143 (H) 1,500 - 7,800 cells/uL Final ABSOLUTE LYMPHOCYTES 11/16/2024 1,327 850 - 3,900 cells/uL Final ABSOLUTE MONOCYTES 11/16/2024 856 200 - 950 cells/uL Final ABSOLUTE EOSINOPHILS 11/16/2024 50 15 - 500 cells/uL Final ABSOLUTE BASOPHILS 11/16/2024 25 0 - 200 cells/uL Final NEUTROPHILS 11/16/2024 81.8 % Final LYMPHOCYTES 11/16/2024 10.7 % Final MONOCYTES 11/16/2024 6.9 % Final EOSINOPHILS 11/16/2024 0.4 % Final BASOPHILS 11/16/2024 0.2 % Final TSH W/REFLEX TO FT4 11/16/2024 1.13 0.40 - 4.50 mIU/L Final VITAMIN D,25-OH,TOTAL,IA 11/16/2024 27 (L) 30 - 100 ng/mL Final Comment: Vitamin D Status 25-OH Vitamin D: Deficiency: <20 ng/mL Insufficiency: 20 - 29 ng/mL Optimal: > or = 30 ng/mL For 25-OH Vitamin D testing on patients on D2-supplementation and patients for whom quantitation of D2 and D3 fractions is required, the QuestAssureD(TM) 25-OH VIT D, (D2,D3), LC/MS/MS is recommended: order code 59941 (patients >2yrs). See Note 1 Note 1 For additional information, please refer to [email or web address] (This link is being provided for informational/ educational purposes only.) HEMOGLOBIN A1c 11/16/2024 6.9 (H) <5.7 % of total Hgb Final Comment: For someone without known diabetes, a hemoglobin A1c value of 6.5% or greater indicates that they may have diabetes and this should be confirmed with a follow-up test. For someone with known diabetes, a value <7% indicates that their diabetes is well controlled and a value greater than or equal to 7% indicates suboptimal control. A1c targets should be individualized based on duration of diabetes, age, comorbid conditions, and other considerations. Currently, no consensus exists regarding use of hemoglobin A1c for diagnosis of diabetes for children. eAG (mg/dL) 11/16/2024 151 mg/dL Final eAG (mmol/L) 11/16/2024 8.4 mmol/L Final Lab Requisition on 11/07/2024 Component Date Value Ref Range Status Troponin I, High Sensitivity 11/07/2024 14 (H) 0 - 13 ng/L Final Lab on 08/02/2024 Component Date Value Ref Range Status Glucose 08/02/2024 103 (H) 74 - 99 mg/dL Final Sodium 08/02/2024 137 136 - 145 mmol/L Final Potassium 08/02/2024 4.9 3.5 - 5.3 mmol/L Final Chloride 08/02/2024 106 98 - 107 mmol/L Final Bicarbonate 08/02/2024 22 21 - 32 mmol/L Final Anion Gap 08/02/2024 14 10 - 20 mmol/L Final Urea Nitrogen 08/02/2024 15 6 - 23 mg/dL Final Creatinine 08/02/2024 1.01 0.50 - 1.05 mg/dL Final eGFR 08/02/2024 57 (L) >60 mL/min/1.73m*2 Final Calculations of estimated GFR are performed using the 2020 CKD-EPI Study Refit equation without therace variable for the IDMS-Traceable creatinine methods. https://jasn.asnjournals.org/content//ASN.4234056571 Calcium 08/02/2024 8.9 8.6 - 10.6 mg/dL Final Albumin 08/02/2024 4.0 3.4 - 5.0 g/dL Final Alkaline Phosphatase 08/02/2024 46 33 - 136 U/L Final Total Protein 08/02/2024 6.5 6.4 - 8.2 g/dL Final AST 08/02/2024 26 9 - 39 U/L Final Bilirubin, Total 08/02/2024 0.5 0.0 - 1.2 mg/dL Final ALT 08/02/2024 24 7 - 45 U/L Final Patients treated with Sulfasalazine may generate falsely decreased results for ALT. Thyroid Stimulating Hormone 08/02/2024 1.42 0.44 - 3.98 mIU/L Final Magnesium 08/02/2024 1.99 1.60 - 2.40 mg/dL Final Phosphorus 08/02/2024 4.8 2.5 - 4.9 mg/dL Final The performance characteristics of phosphorus testing in heparinized plasma have been validated by the individual laboratory site where testing is performed. Testing on heparinized plasma is not approved by the FDA; however, such approval is not necessary. Vitamin B12 08/02/2024 207 (L) 211 - 911 pg/mL Final Folate, Serum 08/02/2024 23.5 >5.0 ng/mL Final Methylmalonic Acid, S 08/02/2024 0.25 0.00 - 0.40 umol/L Final INTERPRETIVE INFORMATION: MMA Serum/Plasma, Vitamin B12 Status This test was developed and its performance characteristics determined by [facility]. It has not been cleared or approved by the US Food and Drug Administration. This test was performed in a CLIA certified laboratory and is intended for clinical purposes. Performed By: [facility] [address] [place] [id number] Needle Punch Operator: Rosalee Upton MD, PhD CLIA Number: [id number] Iron 08/02/2024 45 35 - 150 ug/dL Final UIBC 08/02/2024 354 110 - 370 ug/dL Final TIBC 08/02/2024 399 240 - 445 ug/dL Final % Saturation 08/02/2024 11 (L) 25 - 45 % Final Ferritin 08/02/2024 71 8 - 150 ng/mL Final Lab on 06/13/2024 Component Date Value Ref Range Status Albumin, Urine Random 06/13/2024 1,587.3 Not established mg/L Final Creatinine, Urine Random 06/13/2024 67.3 20.0 - 320.0 mg/dL Final Albumin/Creatinine Ratio 06/13/2024 2,358.5 (H) <30.0 ug/mg Creat Final Glucose 06/13/2024 137 (H) 74 - 99 mg/dL Final Sodium 06/13/2024 137 136 - 145 mmol/L Final Potassium 06/13/2024 4.6 3.5 - 5.3 mmol/L Final Chloride 06/13/2024 103 98 - 107 mmol/L Final Bicarbonate 06/13/2024 22 21 - 32 mmol/L Final Anion Gap 06/13/2024 17 10 - 20 mmol/L Final Urea Nitrogen 06/13/2024 16 6 - 23 mg/dL Final Creatinine 06/13/2024 1.03 0.50 - 1.05 mg/dL Final eGFR 06/13/2024 56 (L) >60 mL/min/1.73m*2 Final Calculations of estimated GFR are performed using the 2020 CKD-EPI Study Refit equation without therace variable for the IDMS-Traceable creatinine methods. https://jasn.asnjournals.org/content/early//ASN.2150336956 Calcium 06/13/2024 8.7 8.6 - 10.6 mg/dL Final Albumin 06/13/2024 4.0 3.4 - 5.0 g/dL Final Alkaline Phosphatase 06/13/2024 49 33 - 136 U/L Final Total Protein 06/13/2024 6.2 (L) 6.4 - 8.2 g/dL Final AST 06/13/2024 23 9 - 39 U/L Final Bilirubin, Total 06/13/2024 0.5 0.0 - 1.2 mg/dL Final ALT 06/13/2024 36 7 - 45 U/L Final Patients treated with Sulfasalazine may generate falsely decreased results for ALT. Hemoglobin A1C 06/13/2024 5.5 See comment % Final Estimated Average Glucose 06/13/2024 111 Not Established mg/dL Final WBC 06/13/2024 5.3 4.4 - 11.3 x10*3/uL Final nRBC 06/13/2024 0.0 0.0 - 0.0 /100 WBCs Final RBC 06/13/2024 3.35 (L) 4.00 - 5.20 x10*6/uL Final Hemoglobin 06/13/2024 9.7 (L) 12.0 - 16.0 g/dL Final Hematocrit 06/13/2024 30.8 (L) 36.0 - 46.0 % Final MCV 06/13/2024 92 80 - 100 fL Final MCH 06/13/2024 29.0 26.0 - 34.0 pg Final MCHC 06/13/2024 31.5 (L) 32.0 - 36.0 g/dL Final RDW 06/13/2024 13.0 11.5 - 14.5 % Final Platelets 06/13/2024 204 150 - 450 x10*3/uL Final Neutrophils % 06/13/2024 74.1 40.0 - 80.0 % Final Immature Granulocytes %, Automated 06/13/2024 0.4 0.0 - 0.9 % Final Immature Granulocyte Count (IG) includes promyelocytes, myelocytes and metamyelocytes but does not include bands. Percent differential counts (%) should be interpreted in the context of the absolute cell counts (cells/UL). Lymphocytes % 06/13/2024 14.1 13.0 - 44.0 % Final Monocytes % 06/13/2024 7.7 2.0 - 10.0 % Final Eosinophils % 06/13/2024 2.4 0.0 - 6.0 % Final Basophils % 06/13/2024 1.3 0.0 - 2.0 % Final Neutrophils Absolute 06/13/2024 3.93 1.60 - 5.50 x10*3/uL Final Percent differential counts (%) should be interpreted in the context of the absolute cell counts (cells/uL). Immature Granulocytes Absolute, Au* 06/13/2024 0.02 0.00 - 0.50 x10*3/uL Final Lymphocytes Absolute 06/13/2024 0.75 (L) 0.80 - 3.00 x10*3/uL Final Monocytes Absolute 06/13/2024 0.41 0.05 - 0.80 x10*3/uL Final Eosinophils Absolute 06/13/2024 0.13 0.00 - 0.40 x10*3/uL Final Basophils Absolute 06/13/2024 0.07 0.00 - 0.10 x10*3/uL Final WERO 06/13/2024 Negative Negative Final The Antinuclear Antibody (WERO) test was performed using indirect immunofluorescence assay with HEp-2 cells slide. Rheumatoid Factor 06/13/2024 <10 0 - 15 IU/mL Final Citrulline Antibody, IgG 06/13/2024 <1 <3 U/mL Final NEGATIVE < 3 U/ML POSITIVE >=3 U/ML ANCA IFA Titer 06/13/2024 <1:20 <1:20 Final ANCA IFA Pattern 06/13/2024 None Detected None Detected Final INTERPRETIVE INFORMATION: ANCA IFA Pattern Neutrophil Cytoplasmic Antibodies (C-ANCA = granular cytoplasmic staining, P-ANCA = perinuclear staining) are found in the serum of over 90 percent of patients with certain necrotizing systemic vasculitides, and usually in less than 5 percent of patients with collagen vascular disease or arthritis. Performed By: [facility] [address] [place] [id number] Needle Punch Operator: Rosalee Upton MD, PhD CLIA Number: [id number] SSA-52 (Ro52) (YOCASTA) Antibody, IgG 06/13/2024 2 0 - 40 AU/mL Final INTERPRETIVE INFORMATION: SSA-52 (Ro52) (YOCASTA) Antibody, IgG 29 AU/mL or Less ............. Negative 30 - 40 AU/mL ................ Equivocal 41 AU/mL or Greater .......... Positive SSA-52 (Ro52) and/or SSA-60 (Ro60) antibodies are associated with a diagnosis of Sjogren syndrome, systemic lupus erythematosus (SLE), and systemic sclerosis. SSA-52 antibody overlaps significantly with the major SSc-related antibodies. SSA-52 (Ro52) antibody occurs frequently in patients with inflammatory myopathies, often in the presence of interstitial lung disease. SSA-60 (Ro60) (YOCASTA) Antibody, IgG 06/13/2024 0 0 - 40 AU/mL Final REFERENCE INTERVAL: SSA-60 (Ro60) (YOCASTA) Antibody, IgG 29 AU/mL or Less ............. Negative 30 - 40 AU/mL ................ Equivocal 41 AU/mL or Greater .......... Positive Shannon/CUFF TURNER MACHINE OPERATOR (YOCASTA) Ab, IgG 06/13/2024 2 0 - 19 Units Final INTERPRETIVE INFORMATION: Shannon/CUFF TURNER MACHINE OPERATOR (YOCASTA) Antibody, IgG 19 Units or Less ............. Negative 20 to 39 Units ............... Weak Positive 40 to 80 Units ............... Moderate Positive 81 Units or greater .......... Strong Positive Shannon/CUFF TURNER MACHINE OPERATOR antibodies are frequently seen in patients with mixed connective tissue disease (MCTD) and are also associated with other systemic autoimmune rheumatic diseases (SARDs) such as systemic lupus erythematosus (SLE), systemic sclerosis, and myositis. Antibodies targeting the Shannon/CUFF TURNER MACHINE OPERATOR antigenic complex also recognize Shannon antigens, therefore, the Shannon antibody response must be considered when interpreting these results. Neelima-1 (Histidyl-tRNA Synthetase) Ab* 06/13/2024 1 0 - 40 AU/mL Final INTERPRETIVE INFORMATION: Neelima-1 Antibody, IgG 29 AU/mL or less.........Negative 30-40 AU/mL..............Equivocal 41 AU/mL or greater......Positive Presence of Neelima-1 (antihistidyl transfer RNA [t-RNA] synthetase) antibody is associated with polymyositis and may also be seen in patients with dermatomyositis. Neelima-1 antibody is associated with pulmonary involvement (interstitial lung disease), Raynaud phenomenon, arthritis, and motorboat mechanic helper's hands (implicated in antisynthetase syndrome). PL-12 (alanyl-tRNA synthetase) Ant* 06/13/[address]-7 (threonyl-tRNA synthetase) An* 06/13/2024 Negative Negative Final EJ (glycyl-tRNA synthetase) Antibo* 06/13/2024 Negative Negative Final OJ (isoleucyl-tRNA synthetase) Ant* 06/13/2024 Negative Negative Final SRP (Signal Recognition Particle) * 06/13/2024 Negative Negative Final Ku Antibody 06/13/2024 Negative Negative Final PM/Scl 100 Antibody, IgG 06/13/2024 Negative Negative Final INTERPRETIVE INFORMATION: PM/Scl-100 Antibody, IgG by Immunoblot The presence of PM/Scl-100 IgG antibody along with a positive WERO IFA nucleolar pattern is associated with connective tissue diseases such as polymyositis (PM), dermatomyositis (DM), systemic sclerosis (SSc), and polymyositis/systemic sclerosis overlap syndrome. The clinical relevance of PM/Scl-100 IgG antibody with a negative WERO IFA nucleolar pattern is unknown. PM/Scl-100 is the main target epitope of the PM/Scl complex, although antibodies to other targets not detected by this assay may occur. This test was developed and its performance characteristics determined by [facility]. It has not been cleared or approved by the US Food and Drug Administration. This test was performed in a CLIA certified laboratory and is intended for clinical purposes. Fibrillarin (U3 CUFF TURNER MACHINE OPERATOR) Ab, IgG 06/13/2024 Negative Negative Final Comment: Interpretive Information: Fibrillarin (U3 CUFF TURNER MACHINE OPERATOR) Antibody, IgG The presence of fibrillarin (U3-CUFF TURNER MACHINE OPERATOR) IgG antibodies in association with an WERO IFA nucleolar pattern is suggestive of systemic sclerosis (SSc). In SSc, these antibodies are associated with distinct clinical features, such as younger age at disease onset, frequent internal organ involvement (pulmonary hypertension, myositis and renal disease). Fibrillarin antibodies are detected more frequently in patients with SSc compared to other ethnic groups. Strong correlation with WERO IFA results is recommended. In a multi-ethnic cohort of SSc patients (n=98), U3-CUFF TURNER MACHINE OPERATOR antibodies detected by immunoblot had an agreement of 98.9 percent with the gold standard immunoprecipitation (IP) assay. Approximately 71 percent (5/7) of the borderline U3-CUFF TURNER MACHINE OPERATOR results with WERO nucleolar pattern in this cohort were IP negative. This test was developed and its performance characteristics determined by [facility]. It has not been cleared or approved by the US Food and Drug Administration. This test was performed in a CLIA certified laboratory and is intended for clinical purposes. Performed By: [facility] [address] [place] [id number] Needle Punch Operator: Rosalee Upton MD, PhD CLIA Number: [id number] Mi-2 (nuclear helicase protein) An* 06/13/2024 Negative Negative Final P155/140 Antibody 06/13/2024 Negative Negative Final TIF-1 gamma (155 kDa) Ab 06/13/2024 Negative Negative Final SAE1 (SUMO activating enzyme) Ab 06/13/2024 Negative Negative Final MDA5 (CADM-140) Ab 06/13/2024 Negative Negative Final NXP2 (Nuclear matrix protein-2) Ab 06/13/2024 Negative Negative Final Myositis Panel Interpretive Data 06/13/2024 See Note Final Comment: INTERPRETIVE INFORMATION: Extended Myositis Panel If present, myositis-specific antibodies (MSA) are specific for myositis, and may be useful in establishing diagnosis as well as prognosis. MSAs are generally regarded as mutually exclusive with rare exceptions; the occurrence of two or more MSAs should be carefully evaluated in the context of patient's clinical presentation. Myositis-associated antibodies (MAA) may be found in patients with CTD including overlap syndromes, and are generally not specific for myositis. The following table will help in identifying the association of any antibodies found as either MSAs or Willa. Antibody Specificity . . . . . . . . . . . . MSA . . . . MAA SSA 52 (Ro) (YOCASTA) Antibody IgG . . . . . . . . . . . . . X SSA 60 (Ro) (YOCASTA) Antibody IgG . . . . . . . . . . . . . X Shannon/CUFF TURNER MACHINE OPERATOR (YOCASTA) Ab, IgG . . . . . . . . . . . . . . . . X Neelima-1 (histidyl-tRNA synthetase) Ab, IgG . . X PL-12 (alanyl-tRNA synthetase) Antibody . . X PL-7 (threonyl-tRNA synthetase) Antibody . . X EJ (glycyl-tRNA synthetase) Antibody . . . . X OJ (isoleucyl-tRNA synthetase) Antibody . . X SRP (Signal Recognition Particle) Ab . . . . X Ku Antibody . . . . . . . . . . . . . . . . . . . . . . X PM/SCL 100 Antibody, IgG . . . . . . . . . . . . . . . . X Fibrillarin (U3 CUFF TURNER MACHINE OPERATOR) Ab, IgG . . . . . . . . . . . . . . X Mi-2 (nuclear helicase protein) Antibody . . X P155/140 Antibody . . . . . . . . . . . . . X TIF-1 gamma (155 kDa) Ab . . . . . . . . . . X SAE1 (SUMO activating enzyme) Ab . . . . . . X MDA5 (CADM-140) Ab . . . . . . . . . . . . X NXP2 (Nuclear matrix proten-2)Ab . . . . . . X This test was developed and its performance characteristics determined by [facility]. It has not been cleared or approved by the US Food and Drug Administration. This test was performed in a CLIA certified laboratory and is intended for clinical purposes. Aspergillus fumigatus #1 Ab, Preci* 06/13/2024 None Detected None Detected Final Aspergillus fumigatus #6 Ab, Preci* 06/13/2024 None Detected None Detected Final Aureobasidium pullulans Ab, Precip* 06/13/2024 None Detected None Detected Final [place] Serum Ab, Precipitin 06/13/2024 None Detected None Detected Final Micropolyspora Faeni Ab, Precipitin 06/13/2024 None Detected None Detected Final Testing includes antibodies directed at Aureobasidium pullulans, Aspergillus fumigatus #1, Aspergillus fumigatus #6, Micropolyspora faeni, and [place] Serum. Performed By: [facility] [address] [place] [id number] Needle Punch Operator: Rosalee Upton MD, PhD CLIA Number: [id number] Anti-SSA 06/13/2024 <0.2 <1.0 AI Final < 1.0 = NEGATIVE >=1.0 = POSITIVE Anti-SSB 06/13/2024 <0.2 <1.0 AI Final < 1.0 = NEGATIVE >=1.0 = POSITIVE Lab on 05/02/2024 Component Date Value Ref Range Status Glucose 05/02/2024 117 (H) 74 - 99 mg/dL Final Sodium 05/02/2024 139 136 - 145 mmol/L Final Potassium 05/02/2024 4.4 3.5 - 5.3 mmol/L Final Chloride 05/02/2024 105 98 - 107 mmol/L Final Bicarbonate 05/02/2024 24 21 - 32 mmol/L Final Anion Gap 05/02/2024 14 10 - 20 mmol/L Final Urea Nitrogen 05/02/2024 20 6 - 23 mg/dL Final Creatinine 05/02/2024 1.13 (H) 0.50 - 1.05 mg/dL Final eGFR 05/02/2024 50 (L) >60 mL/min/1.73m*2 Final Calculations of estimated GFR are performed using the 2020 CKD-EPI Study Refit equation without therace variable for the IDMS-Traceable creatinine methods. https://jasn.asnjournals.org/content/early//ASN.2648645428 Calcium 05/02/2024 8.8 8.6 - 10.6 mg/dL Final Phosphorus 05/02/2024 4.2 2.5 - 4.9 mg/dL Final The performance characteristics of phosphorus testing in heparinized plasma have been validated by the individual laboratory site where testing is performed. Testing on heparinized plasma is not approved by the FDA; however, such approval is not necessary. Albumin 05/02/2024 3.8 3.4 - 5.0 g/dL Final There may be more visits with results that are not included. Medications Ordered Prior to Encounter[1] No images are attached to the encounter. Assessment/Plan Diagnoses and all orders for this visit: Cellulitis of right toe - amoxicillin-clavulanate (Augmentin) 875-125 mg tablet; Take 1 tablet (875 mg of amoxicillin) by mouth 2 times a day for 10 days. 1. Patient to see wound center and augmentin 2. Patient to call questions or concerns [1] Current Outpatient Medications on File Prior to Visit Medication Sig Dispense Refill albuterol 90 mcg/actuation inhaler Inhale 2 puffs every 4 hours if needed. amLODIPine (Norvasc) 2.5 mg tablet Take 1 tablet (2.5 mg) by mouth early in the morning.. 90 tablet1 apixaban (Eliquis) 5 mg tablet Take 1 tablet (5 mg) by mouth twice a day. blood sugar diagnostic (Contour Next Test Strips) strip 1 each 2 times a day. 200 strip 1 carvedilol (Coreg) 12.5 mg tablet take 1 tablet (12.5 mg) by mouth 2 times daily (with meals). cholecalciferol (Vitamin D-3) 50 MCG (2000 UT) tablet Take 2 tablets (100 mcg) by mouth once daily. clindamycin (Cleocin T) 1 % lotion twice a day. Apply sparingly and massage in cyanocobalamin (Vitamin B-12) 1,000 mcg tablet Take 1 tablet (1,000 mcg) by mouth once daily. cyclobenzaprine (Flexeril) 5 mg tablet Take 1 tablet (5 mg) by mouth as needed at bedtime for muscle spasms. 30 tablet 0 ezetimibe (Zetia) 10 mg tablet Take 1 tablet (10 mg) by mouth once daily. finerenone (Kerendia) 10 mg tablet tablet Take 1 tablet (10 mg) by mouth once daily. 90 tablet 3 fluocinonide (Lidex) 0.05 % external solution 1 (one) time each day. Apply to affected areas gabapentin (Neurontin) 100 mg capsule Take 1 capsule (100 mg) by mouth once daily at bedtime. icosapent ethyL (Vascepa) 1 gram capsule Take 2 capsules (2 g) by mouth twice a day. linagliptin-metformin (Jentadueto XR) 2.5-1,000 mg tablet, IR - ER, biphasic 24hr Take 2 tablets bymouth once daily. 180 tablet 3 losartan (Cozaar) 100 mg tablet Take 1 tablet (100 mg) by mouth once daily. 90 tablet 3 multivit,calc,mins/iron/folic (ONE-A-DAY WOMENS FORMULA ORAL) Take 1 tablet by mouth once daily. pantoprazole (ProtoNix) 40 mg EC tablet Take 1 tablet (40 mg) by mouth once daily in the morning. Take before meals. 90 tablet 1 rosuvastatin (Crestor) 10 mg tablet TAKE ONE TABLET BY MOUTH EVERY DAY 90 tablet 3 sertraline (Zoloft) 25 mg tablet Take 1 tablet (25 mg) by mouth once daily. tiotropium (Spiriva Respimat) 2.5 mcg/actuation inhaler Inhale 2 puffs once daily. 12 g 3 furosemide (Lasix) 20 mg tablet Take 1 tablet (20 mg) by mouth every other day. [DISCONTINUED] doxycycline (Vibramycin) 100 mg capsule Take 1 capsule (100 mg) by mouth 2 times a day for 10 days. Take with at least 8 ounces (large glass) of water, do not lie down for 30 minutes after 20 capsule 0 No current facility-administered medications on file prior to visit. documented in this [facility] Work Phone: [phone]) 497-192107-02-2025 History of Present illness Narrative* Haley Dean, PT - 02/15/2025 11:38 AM EDT Program_ID:[id number] Access Code: [email or web address] URL: [email or web address] Date: 02-15-2025 Prepared By: Haley Dean Program Notes Exercises - Seated Lumbar Flexion Stretch - 3 x daily - 7 x weekly - 2-3 sets - 10 reps - Seated Transversus Abdominis Bracing - 3 x daily - 7 x weekly - 2 sets - 10 reps - Seated Gentle Upper Trapezius Stretch - 3 x daily - 7 x weekly - 1 sets - 3 reps * Haley Dean, PT - 02/15/2025 11:07 AM EDT Episode Visit Count: 1 Therapist That Will Accept/Oversee The Plan Of Care: Haley Dean Start of Care Date: 02/15/25 Onset Date: 02/15/18 Plan of Care Certification Date: 02/15/25 Next Certification Due Date: 03/29/25 Patient Identified by Name and Date of : Yes REHABILITATION AND SPORTS THERAPY PHYSICAL THERAPY EVALUATION PLAN OF CARE: Assessment: Rolando Peters presents with diagnosis of 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 The patient presents with impairments in ADL's, balance, gait, independence in exercise, joint mobility, overall function, patient reported outcome measures, posture, range of motion, strength, and symptom management. PROMIS (Patient- Reported Outcomes Measurement Information System) scores were reviewed and identified as a rehabilitation concern. Prognosis for therapy is Fair due to: limited tolerance to activity, multiple co- morbidities, clinical presentation, chronic nature of impairments, advanced age . The patient will benefit from skilled therapy services to meet the goals established for this plan of care as noted below. Classification Pain Mechanism Classification: Nociceptive Low Back Pain Classification: Symptom Modulation Goals for Episode of Care: established 02/15/25 Independent in home exercises. Patient will decrease pain to 1-2/10 with functional activities to allow patient to improve standing tolerance for ADLs. Restore pain-free lumbar ROM to minimal to no limitation extension to allow for standing and walking with improved posture without limitation due to symptoms. Stand / Walk 10 minutes or greater without pain/symptoms. Sleep through night without pain/symptoms. Restore pain free cervical ROM active side bending R and L to minimal to no limitation without increased pain/tightness to allow for reduced pain. Patient Goals: reduce RLE and R LBP Time Frame for Goals and Treatment : 03/29/25 Planned Interventions, Frequency, and Duration: Current Frequency: 1x/week Duration: 6 weeks Total Number of Visits Planned: 6 Planned Treatment Interventions: Gait Training (80218), Self-senior living management (99327), Therapeutic activities (93103), Manual therapy (47473), Neuromuscular re-education (23723), Therapeutic exercise (89373) PLAN FOR NEXT VISIT: assess symptoms response to HEP Patient demonstrates good understanding of plan of care and treatment. The above goals and plan of care were discussed and agreed upon by patient/family. SUBJECTIVE: for chronic LBP with numbness in the RLE leg and foot. Wound on the R toe-- this is being treated. Neck occasionally bothers her and seems to be ok right now. states she didn't know she had a neck problem before the imaging. Numbness and pain in the R foot, feels like she is getting a drop foot. Presents with SC. She states that she shares with her and uses it for longer distances, she plans to get her own. Tolerates about 10 minutes of standing/walking before she must sit. Sitting reduces symptoms. Pt. has much difficulty with sleeping. Laminectomy scheduled in March for her cervical spine. Surgery for the spine scheduled for May. 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 Cancer Red Flags: Age >50 or <20, History of Cancer Cancer Clinical Reasoning: Proceed with caution Infection Clinical Reasoning: No identified risk factors. Cauda Equina Syndrome Clinical Reasoning: No identified risk factors. Cervical Arterial Dysfunction Clinical Reasoning: No identified risk factors Cervical Myelopathy Diagnostic Rule: No identified risk factors. Red Flags - Cervical Cancer Red Flags: Age >50 or <20, History of Cancer Cancer Clinical Reasoning: Proceed with caution Infection Clinical Reasoning: No identified risk factors. Cervical Arterial Dysfunction Clinical Reasoning: No identified risk factors Cervical Myelopathy Diagnostic Rule: No identified risk factors. Spine History Pain is Worse Always: Standing, Walking, On the Move Pain is Better Always: Lying Pain: Pain Pain Level: 3 Pain Location: Low Back/Lumbar Spine - Right Description: Aching Frequency: With movement Additional Pain Information : Location 2 Pain Location 2: Leg - Right Description 2: Aching Frequency 2: With movement Post Treatment Pain Post Treatment Pain Level: No Change Post Treatment Pain Location: Low Back/Lumbar Spine - Right Post Treatment Pain Score 2: No Change Post Treatment Pain Location 2: Leg - Right PROMIS Scales 02/06/2025 Higher is Better Phys Func - T Score 30 (moderate dysfunction) Phys Func - Percentile 2 T-scores: mean of general population = 50. 5 points is clinically meaningfully difference Percentiles provide an indication of how the patient's score ranks in relation to the general population. Higher percentile rankings indicate better function/quality of life. 50th percentile is the average of the general population and indicates half of respondents had a worse score. 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 Repeated Test Movements - Lumbar Other Lumbar Repeated Test Movements: Yes Other Repeated Test Movements - Lumbar RFISit / Symptoms During: decreases RFISit / Symptoms After: no effect Sensation - Cervical Spine Cervical Spine Sensation: Impaired Cervical Spine ROM Cervical ROM : Limitation AROM Cervical Protrusion AROM: Normal Cervical Retraction AROM: Normal Cervical Flexion AROM: Normal Cervical Extension AROM: Normal Cervical Side-Bend Right AROM: Minimal limitation, Produces (some pulling) Cervical Side-Bend Left AROM: (some pulling) Cervical Rotation Right AROM: Normal Cervical Rotation Left AROM: Normal UE Flexibility Flexibility: Upper Trapezius R Upper Trapezius Flexibilty Comments: limited L Upper Trapezius Flexibility Comments: limited Functional Strength Functional Strength: Sit<>stand Sit/Stand: became light headed upon standing Gait Gait: Modified Independent Gait Distance (feet): 50 Vitals BP: 113/61 Pulse: 85 SpO2: 100 % Additional Vitals: Yes Post Assessment: Heart Rate Post, BP Post, SpO2 Post Post Heart Rate: 84 Post BP: 92/53 Post BP Position: Standing Post SpO2: 99 Vitals response to exercise: Yes Education: Education Learning Preferences: Demonstration, Explanation, Performance, Printed Materials Barriers: Low activity tolerance/endurance Learning/educational needs: Plan of Care, Home exercise program, Gait Training, Posture, Safety Education Provided: Yes, see treatment interventions for education provided Education Provided To: Patient Education Mode/Type: Explanation/Discussion, Performance, Literature/Printed Materials, Demonstration Response to Education/Teach Back: States/Identifies, Return Demonstration TREATMENT: PT Treatment Interventions: Therapeutic Exercise, Self-Chcf Management Evaluation Therapeutic Exercise: 1: *Access Code: [email or web address] URL: [email or web address] Date: 02/15/2025 Prepared by: Haley Zuniga Exercises - Seated Lumbar Flexion Stretch - 3 x daily - 7 x weekly - 2-3 sets - 10 reps - Seated Transversus Abdominis Bracing - 3 x daily - 7 x weekly - 2 sets - 10 reps - Seated Gentle Upper Trapezius Stretch - 3 x daily - 7 x weekly - 1 sets - 3 reps - 30 hold Skilled Intervention: Patient was educated in proper exercise technique and purpose for exercises. Skilled judgment was used in selection of appropriate interventions. Provided written instruction for home exercise program to facilitate proper performance and compliance. Correct performance of therapeutic exercises was facilitated with verbal, visual, and tactile cuing. Educated patient on rationale for performing exercises in regards to decreasing fatigue , increase ease of ADL, and ROM and function . Patient education as noted. Self-Chcf Management: 1: discussed what spine stenosis sis 2: discussed directional preference - flexion 3: discussed desired response from HEP and purpose of each exercise Rx'd 4: advised pt. to discuss the orthostatic hypotension with her physician and to remain hydrated, especially in hot weather Skilled Intervention: Skilled judgment in the selection of proper modification for activity of daily living/home management based on clinical presentation, deficits, and needs. Provided written instruction for activities of daily living techniques to facilitate proper performance and compliance. Reviewed patient specific diagnosis in relation to activities of daily living/home management. Activity progression based on professional judgement. Moderate verbal cues for maintaining neutral spine alignment. Provided written instruction for home program to facilitate proper performance and compliance. Correct performance of home program was facilitated with verbal, visual, and tactile cueing. Billing * Evaluation Low Complexity: 1 Unit Therapeutic Exercise Treatment Minutes: 10 Self-Care/Home Management Treatment Minutes: 14 Skilled Treatment Time Minutes (timed and untimed codes): 44 Total Session Time (minutes): 44 Session Start Time : 1104 Session Stop Time : 1148 Haley Dean PT [facility] NoteHNO ID: [id number] Author: HALEY DEAN PT Service: ? 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 The patient presents with impairments in ADL's, balance, gait, independence in exercise, joint mobility, overall function, patient reported outcome measures, posture, range of motion, strength, and symptom management. PROMIS? (Patient-Reported Outcomes Measurement Information System) scores were reviewed and identified as a rehabilitation concern. Prognosis for therapy is Fair due to: limited tolerance to activity, multiple co- morbidities, clinical presentation, chronic nature of impairments, advanced age . The patient will benefit from skilled therapy services to meet the goals established for this plan of care as noted below. Classification Pain Mechanism Classification: Nociceptive Low Back Pain Classification: Symptom Modulation Goals for Episode of Care: established 02/15/25 Independent in home exercises. Patient will decrease pain to 1-2/10 with functional activities to allow patient to improve standing tolerance for ADLs. Restore pain-free lumbar ROM to minimal to no limitation extension to allow for standing and walking with improved posture without limitation due to symptoms. Stand / Walk 10 minutes or greater without pain/symptoms. Sleep through night without pain/symptoms. Restore pain free cervical ROM active side bending R and L to minimal to no limitation without increased pain/tightness to allow for reduced pain. Patient Goals: reduce RLE and R LBP Time Frame for Goals and Treatment : 03/29/25 Planned Interventions, Frequency, and Duration: Current Frequency: 1x/week Duration: 6 weeks Total Number of Visits Planned: 6 Planned Treatment Interventions: Gait Training (05552), Self-senior living management (79576), Therapeutic activities (78795), Manual therapy (41326), Neuromuscular re-education (50218), Therapeutic exercise (96761) PLAN FOR NEXT VISIT: assess symptoms response to HEP Patient demonstrates good understanding of plan of care and treatment. The above goals and plan of care were discussed and agreed upon by patient/family. SUBJECTIVE: for chronic LBP with numbness in the RLE leg and foot. Wound on the R toe-- this is being treated. Neck occasionally bothers her and seems to be ok right now. states she didn't know she had a neck problem before the imaging. Numbness and pain in the R foot, feels like she is getting a drop foot. Presents with SC. She states that she shares with her and uses it for longer distances, she plans to get her own. Tolerates about 10 minutes of standing/walking before she must sit. Sitting reduces symptoms. Pt. has much difficulty with sleeping. Laminectomy scheduled in March for her cervical spine. Surgery for the spine scheduled for May. 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 Cancer Red Flags: Age >50 or <20, History of Cancer Cancer Clinical Reasoning: Proceed with caution Infection Clinical Reasoning: No identified risk factors. Cauda Equina Syndrome Clinical Reasoning: No identified risk factors. Cervical Arterial Dysfunction Clinical Reasoning: No identified risk factors Cervical Myelopathy Diagnostic Rule: No identified risk factors. Red Flags - Cervical Cancer Red Flags: Age >50 or <20, History of Cancer Cancer Clinical Reasoning: Proceed with caution Infection Clinical Reasoning: No identified risk factors. Cervical Arterial Dysfunction Clinical Reasoning: No identified risk factors Cervical Myelopathy Diagnostic Rule: No identified risk factors. Spine History Pain is Worse Always: Standing, Walking, On the Move Pain is Better Always: Lying Pain: Pain Pain Level: 3 Pain Location: Low Back/Lumbar Spine - Right Description: Aching Frequency: With movement Additional Pain Information : Location (more content not included)...[facility]07-01-2025 Telephone encounter Note* Telephone Encounter - Darrion Nevarez RN - 02/14/2025 11:01 AM EDT Patient called requesting the following medication. Please see telephone encounter from today. Refill(s) Requested: Requested Prescriptions Pending Prescriptions Disp Refills gabapentin (NEURONTIN) 100 mg capsule 30 capsule 0 Sig: Take 1 capsule by mouth daily at bedtime for 30 days. ALLERGIES Allergen Reactions Isosulfan Blue Anaphylaxis Methylene Blue Anaphylaxis Adhesive Rash Sulfa (Sulfonamide * Rash (home) [phone] (cell) Last Office Visit Date: 02/08/2025 Last Distance Health Visit: Visit date not found Future Appointment: 03/10/2025 The patients preferred pharmacy has been captured for this encounter? yes Request is for script(s) to be escript to pharmacy. Darrion Nevarez RN [facility]07-01-[facility] Note* Addendum Note - Darrion Nevarez RN - 02/14/2025 11:01 AM EDTAddended by: DARRION NEVAREZ on: 02/14/2025 11:01 AM Modules accepted: Orders [facility]07-01-2025 Miscellaneous Notes* Addendum Note - Darrion Nevarez RN - 02/14/2025 11:01 AM EDTAddended by: DARRION NEVAREZ on: 02/14/2025 11:01 AM Modules accepted: Orders * Telephone Encounter - Darrion Nevarez RN - 02/14/2025 10:56 AM EDT Patient is scheduled for cervical surgery with Dr. Huggins on 03/30/2025 and then lumbar surgery on05/25/2025. I called and spoke to patient, returning her call. She was complaining of right flannery to foot pain with numbness as well as to calf area. She noted taking tylenol 1000mg tid and flexeril 5mg daily or bid. She was wondering if she can be prescribed something else to help with her symptoms. Discussed with Nai Esquivel APRN. CNP, and recommended to participate in physical therapy for herneck and low back as well as Gabapentin 100 mg at . I called and spoke to patient, updated her on the above recommendations. She verbalized understanding and was greatly appreciative. She asked for prescription to be sent to [facility] in [place] on [address]. Patient will call office with any questions or concerns. Darrion Nevarez RN documented in this encounterSum[facility]07-01-2025 Miscellaneous Notes* Telephone Encounter - Darrion Nevarez RN - 02/14/2025 11:01 AM EDT Patient called requesting the following medication. Please see telephone encounter from today. Refill(s) Requested: Requested Prescriptions Pending Prescriptions Disp Refills gabapentin (NEURONTIN) 100 mg capsule 30 capsule 0 Sig: Take 1 capsule by mouth daily at bedtime for 30 days. ALLERGIES Allergen Reactions Isosulfan Blue Anaphylaxis Methylene Blue Anaphylaxis Adhesive Rash Sulfa (Sulfonamide * Rash (home) [phone] (cell) Last Office Visit Date: 02/08/2025 Last [facility] Visit: Visit date not found Future Appointment: 03/10/2025 The patients preferred pharmacy has been captured for this encounter? yes Request is for script(s) to be escript to pharmacy. Darrion Nevarez RN documented in this encounterSum[facility]07-01-2025 Telephone encounter Note * Telephone Encounter - Darrion Nevarez RN - 02/14/2025 10:56 AM EDT Patient is scheduled for cervical surgery with Dr. Huggins on 03/30/2025 and then lumbar surgery on05/25/2025. I called and spoke to patient, returning her call. She was complaining of right flannery to foot pain with numbness as well as to calf area. She noted taking tylenol 1000mg tid and flexeril 5mg daily or bid. She was wondering if she can be prescribed something else to help with her symptoms. Discussed with Nai Esquivel APRN. CNP, and recommended to participate in physical therapy for herneck and low back as well as Gabapentin 100 mg at . I called and spoke to patient, updated her on the above recommendations. She verbalized understanding and was greatly appreciative. [facility] [place] [facility] [address]. Patient will call office with any questions or concerns. Darrion Nevarez RN [facility]07-01-2025 Telephone encounter Note* Telephone Encounter - Mick Reich - 02/14/2025 10:25 AM EDT Called and spoke with patient regarding surgery details. All questions were addressed. [facility]07-01-[facility]25 Miscellaneous Notes* Telephone Encounter - Mick Reich - 02/14/2025 10:25 AM EDT Called and spoke with patient regarding surgery details. All questions were addressed. documented in this encounterSum[facility]06-25-2025 History of Present illness Narrative* Dominick Huggins MD - 02/08/2025 10:45 AM EDT Images from the original note were not included. SPINE SURGERY ESTABLISHED PATIENT DATE OF SERVICE: 02/08/2025 Patient Name: Ms.Marie Kelsy Peters Date of : 1945 Current Age: [age] year old Sex: female Subjective Chief Complaint: History of Present Illness: Ms.Marie Kelsy Peters has a past medical history of diabetes mellitus type 2, INGA, HTN, HLD, bilateral malignant neoplasm of breast status post right-sided mastectomy in 1993 and left-sided mastectomy [id number]. Patient was last seen in the office on 01/18/2025 and reported 2-3 year history of back pain that had been gradually worsening. She was previously advised to consider a L3-5 decompression in August of last year, but deferred due to lung issues, including lung nodules, which had improved. Her back pain occasionally radiated to right gluteal region that extended down the entire RLE and foot with paresthesia in both feet right > left. She experienced urinary urgency, denied saddle anesthesia. Additionally, she complained of right-sided neck pain that radiated to shoulder with occasional tingling down anterior aspect of arms into her hands right > left. Endorsed worsening dexterity and balance issues, utilized a cane for a few months. Denied falls. On exam, she had 3/5 weakness in rightDF/EHL, 4/5 right PF and ambulated with a cane. I recommended for patient to follow-up after obtaining MRIs of cervical and lumbar spine, prompting visit today. Rolando Peters is a 80-year-old female with a history of chronic back pain, presenting for follow-up on MRI results of the cervical and lumbar spine. She is accompanied by her sister, who is a nurse and provides additional history. Rolando was last evaluated on 01/18, at which time she reported a 2-3 year history of back pain that had been gradually worsening. The pain started in her lower back and radiated into her right gluteal region and down the entire right leg, accompanied by numbness and tingling in both feet, with the right side being worse than the left. She also described urinary urgency at that time and denied any saddle anesthesia. Additionally, she noted right-sided neck pain radiating into her shoulder, with occasional tingling down the anterior aspect of her arms into her hands, right side worse than left. She reported issues with dexterity and balance and had been using a cane for the past few months. MRI of the cervical and lumbar spine was ordered, and she was advised to follow up. Since her last visit, Rolando reports that her symptoms have remained about the same, with a slight increase in weakness in the right lower extremity. She is also dealing with a recent right foot infection, for which she was started on doxycycline after completing a course of Keflex that did not clear the infection. She had one episode of fecal incontinence since her last visit and still denies anysaddle anesthesia, but she was unaware of the bowel movement at the time. Her A1c was 6.0 a couple of weeks ago. She is on Eliquis BID and is not a smoker. She has not undergone any recent physical therapy or pain management but has been on some oral medications. Rolando has a history of atrial fibrillation and COPD. She mentions that her back pain has been ongoing for several years and has progressively worsened, affecting her ability to walk with her grandchildren. She is considering surgical options for her neck and lower back but is concerned about the recovery period and potential complications. She is also planning a move to [place] on Thursday and isseeking more information before making a decision. Patient's blood pressure elevated at office visit today. Denies chest pain, shortness of breath, headache, blurred vision, dizziness, or lightheadedness. Recommended patient to follow-up with PCP or go to Emergency Department if experiences these symptoms. Major Risk Factors Obesity normal BMI: 21.13 kg/m2 High: BMI > 40 Moderate: BMI 30-40 Normal: BMI < 30 Diabetes normal Last HbA1C: - 01/27/2025 High: A1C > 8 Moderate: A1C 7-8 Normal: A1C < 7 Hx of DVT / PE normal High: dx of DVT / PE Normal: no dx of DVT / PE Smoking normal Last Status: Never High: Current smoker Normal: Non smoker Narcotics Use normal High:NarxCare >=300 Moderate: 100-299 Normal: 0-99 Depression High Risk High: PHQ-9 >14 Moderate: PHQ-9 5-14 Normal: PHQ-9 < 5 Data from [facility] Epic on prior therapies: PREVIOUS CONSERVATIVE TREATMENT: -Medication: Flexeril, Prednisone (for 2-3 months for lungs and recently completed), Tylenol -Physical therapy: No recent participation. -Pain Management: No recent participation -Injections: Lumbar FELECIA 4-5 years ago- no relief. Unsure of level. PREVIOUS SPINE SURGERY: None Surgical Risk Factors: Smoking status: Denies Anticoagulants/antiplatelets: Eliquis bid for afib in January 2024, ablation in 07/2024 Diabetic: Yes, last hgba1c 6.0% from 01/27/2025 Objective PHYSICAL EXAM BP 145/76 (BP Site: Left Arm, BP Position: Sitting, BP Cuff Size: Large Adult) Pulse 77 Ht 5' 7 (1.702 m) Wt 134 lb 14.7 oz (61.2 kg) SpO2 98% BMI 21.13 kg/m 5/5 motor strength in BUE and BLE except 3/5 right DF/EHL, 4/5 right PF, ambulates with cane SILT throughout extremities No UMN signs Results: Cervical spine radiographs from 02/01/2025. Reviewed with patient today Stability: No obvious fracture, instablity, and/or dislocation Degenerative changes: multilevel Alignment: neutral, forward SVA Spondylolisthesis: none Scoliosis: none Asymmetric disc space collapse: none MRI of cervical spine WO contrast from 02/01/2025: IMPRESSION: Multilevel degenerative changes of cervical spine, most significant at C5-C6, as detailed above. [id number] spinal canal stenosis at C5-C6, with mild mass effect on right aspect of spinal cord with mild spinal cord deformity. No convincing evidence of T2 hyperintense signal within cervical spinal cord. Presumed degenerative endplate changes at C5-C6. Early discitis is less likely. This can be clinically correlated. Anatomic Variant: None. Assume 7 cervical vertebrae with counting from the craniocervical junction. MRI of lumbar spine WO contrast from 02/01/2025: IMPRESSION: Severe spinal canal stenosis at L3-L4, as detailed above. Moderate spinal canal stenosis at L4-L5, as detailed above. Additional multilevel degenerative changes of the lumbar spine, as detailed above. Grade 1 anterolisthesis of L3 on L4, likely secondary to facet degenerative changes. Partially imaged trace nonspecific right pleural effusion. This is not further assessed on current examination. Anatomic Lumbar Variant: None. L4-5 is considered the level of the iliac crest and assume there are 5 lumbar-type vertebrae. Assessment/Plan (M48.02) Spinal stenosis of cervical region (primary encounter diagnosis) 1. Spinal stenosis of cervical region (M48.02) MRI reveals significant arthritic changes at C4-C7 causing spinal stenosis and spinal cord compression. Symptoms include neck pain radiating into the shoulder, occasional tingling down the anterior aspect of the arms into the hands, and issues with dexterity and balance. No recent physical therapy or pain management interventions. - Discussed surgical options including decompression via laminectomy with placement of screws and rods to widen the space around the spinal cord. - Educated patient on risks of surgery: pain, bleeding, infection (1% risk), potential failure of screws and rods, rare risk of spinal cord or nerve injury leading to permanent pain or paralysis, andmedical risks such as blood clots, heart attack, stroke, and mortality. - Explained recuperative period of approximately 3 months with restrictions on bending, lifting, ortwisting. - Advised wearing a cervical collar for 2 weeks post-surgery. - Patient to consider surgical intervention and will contact us with her decision. - Will obtain medical and anesthesiology clearances prior to any surgical intervention. 2. Spinal stenosis of lumbar region with neurogenic claudication (M48.062) MRI shows nerve root compression at L3-L5. Symptoms include low back pain radiating into the right gluteal region and down the entire right leg with numbness and tingling in both feet, right side worse than left. Recent increase in right lower extremity weakness. One episode of fecal incontinence reported. No recent physical therapy or pain management interventions. - Discussed potential for improvement in leg symptoms following cervical spine surgery. - Consideration for lumbar laminectomy without screws and rods approximately 8 weeks after cervicalsurgery if symptoms persist. - Patient to monitor symptoms and report any changes. The following portions of the patient's history were reviewed, confirmed, and updated as necessary:allergies, current medications, past family history, past medical history, past social history, past surgical history, problem list, HPI, and ROS obtained by others.The following information can be found in electronic health record. Some elements may be copied from a previous office note and have been reviewed/updated where appropriate. All portions reflect current medical decision making from today. The clinical and radiographic findings as well as the risks, benefits and alternatives of treatmenthave been reviewed in detail with the patient. Advised to call the office if symptoms worsen or new symptoms develop.Patient expressed understanding and is in agreement with plan. Dominick Huggins MD Department of Orthopaedics [facility] Recording using Shareable Social software for draft documentation of the visit was discussed with the patient/authorized customer support representative; all questions welcomed and answered. Patient/authorized customer support representative agreed to proceed documented in this encounterSumma Health Barber[facility]06-25-2025 NoteHNO ID: [id number] Author: DOMINICK HUGGINS MD Service: ? Author Type: Physician Type: Progress Notes Filed: 02/08/2025 11:10 Note Text: SPINE SURGERY ESTABLISHED PATIENT DATE OF SERVICE: 02/08/2025 Patient Name: Ms.Marie Kelsy Peters Date of : 1945 Current Age: [age] year old Sex: female Subjective Chief Complaint: History of Present Illness: Ms.Marie Kelsy Peters has a past medical history of diabetes mellitus type 2, INGA, HTN, HLD, bilateral malignant neoplasm of breast status post right-sided mastectomy in 1993 and left-sided mastectomy in 2010. Patient was last seen in the office on 01/18/2025 and reported 2-3 year history of back pain that had been gradually worsening. She was previously advised to consider a L3-5 decompression in August of last year, but deferred due to lung issues, including lung nodules, which had improved. Her back pain occasionally radiated to right gluteal region that extended down the entire RLE and foot with paresthesia in both feet right > left. She experienced urinary urgency, denied saddle anesthesia. Additionally, she complained of right-sided neck pain that radiated to shoulder with occasional tingling down anterior aspect of arms into her hands right > left. Endorsed worsening dexterity and balance issues, utilized a cane for a few months. Denied falls. On exam, she had 3/5 weakness in right DF/EHL, 4/5 right PF and ambulated with a cane. I recommended for patient to follow-up after obtaining MRIs of cervical and lumbar spine, prompting visit today. Rolando Peters is a 80-year-old female with a history of chronic back pain, presenting for follow-up on MRI results of the cervical and lumbar spine. She is accompanied by her sister, who is a nurse and provides additional history. Rolando was last evaluated on 01/18, at which time she reported a 2-3 year history of back pain that had been gradually worsening. The pain started in her lower back and radiated into her right gluteal region and down the entire right leg, accompanied by numbness and tingling in both feet, with the right side being worse than the left. She also described urinary urgency at that time and denied any saddle anesthesia. Additionally, she noted right-sided neck pain radiating into her shoulder, with occasional tingling down the anterior aspect of her arms into her hands, right side worse than left. She reported issues with dexterity and balance and had been using a cane for the past few months. MRI of the cervical and lumbar spine was ordered, and she was advised to follow up. Since her last visit, Rolando reports that her symptoms have remained about the same, with a slight increase in weakness in the right lower extremity. She is also dealing with a recent right foot infection, for which she was started on doxycycline after completing a course of Keflex that did not clear the infection. She had one episode of fecal incontinence since her last visit and still denies any saddle anesthesia, but she was unaware of the bowel movement at the time. Her A1c was 6.0 a couple of weeks ago. She is on Eliquis BID and is not a smoker. She has not undergone any recent physical therapy or pain management but has been on some oral medications. Rolando has a history of atrial fibrillation and COPD. She mentions that her back pain has been ongoing for several years and has progressively worsened, affecting her ability to walk with her grandchildren. She is considering surgical options for her neck and lower back but is concerned about the recovery period and potential complications. She is also planning a move to [place] on Thursday and is seeking more information before making a decision. Patient's blood pressure elevated at office visit today. Denies chest pain, shortness of breath, headache, blurred vision, dizziness, or lightheadedness. Recommended patient to follow-up with PCP or go to Emergency Department if experiences these symptoms. Major Risk Factors Obesity normal BMI: 21.13 kg/m2 High: BMI > 40 Moderate: BMI 30-40 Normal: BMI < 30 Diabetes normal Last HbA1C: 01/27/2025 High: A1C > 8 Moderate: A1C 7-8 Normal: A1C < 7 Hx of DVT / PE normal High: dx of DVT / PE Normal: no dx of DVT / PE Smoking normal Last Status: Never High: Current smoker Normal: Non smoker Narcotics Use normal High:NarxCare >=300 Moderate: 100-299 Normal: 0-99 Depression High Risk High: PHQ-9 >14 Moderate: PHQ-9 5-14 Normal: PHQ-9 < 5 Data from [facility] Epic on prior therapies: PREVIOUS CONSERVATIVE TREATMENT: -Medication: Flexeril, Prednisone (for 2-3 months for lungs and recently completed), Tylenol -Physical therapy: No recent participation. -Pain Management: No recent participation -Injections: Lumbar FELECIA 4-5 years ago- no relief. Unsure of level. PREVIOUS SPINE SURGERY: None Surgical Risk Factors: Smoking status: Denies Anticoagulants/antiplatelets: Eliquis bid for afib in January (more content not included)...[facility]06-18-2025 History of Present illness Narrative* Kim Vera RT(R) - 02/01/2025 4:00 PM EDT Radiology Service Progress Note PATIENT NAME: Rolando Peters DATE OF SERVICE: February 01, 2025 TIME: 3:16 PM PATIENT IDENTITY VERIFICATION COMPLETED USING TWO (2) IDENTIFIERS: Name and Date of confirmedby patient verbally. FALL SCREENING: Has the patient had 2 falls in the last year or 1 fall with injury or currently using an Ambulatory Assistive Device (Walker, Cane, Wheelchair, Crutches, etc.)? No PATIENT GENDER DATA: Assigned female at . status: : No status:NO. PATIENT RELEVANT IMPLANT DATA REVIEWED: Not Applicable PATIENT PRESENTS WITH AN IMPLANTABLE OR ATTACHED ASSISTANT PROFESSOR OF COMMUNICATION: No RADIOLOGY DEPARTMENT: General X-ray: Exam(s) Completed: Spine X-Ray(s): Cervical AP / LAT / FLEX-EXT PERIPHERAL IV DATA: Not applicable SIGNED BY: MAYRA Zambrano) February 01, 2025 3:16 PM documented in this encounterSumma Health [facility]06-18-2025 NoteHNO ID: [id number] Author: KIM VERA RT(R) Service: Radiology Author Type: Technologist Type: Progress Notes Filed: 02/01/2025 15:16 Note Text: Radiology Service Progress Note PATIENT NAME: Rolando Peters DATE OF SERVICE: February 01, 2025 TIME: 3:16 PM PATIENT IDENTITY VERIFICATION COMPLETED USING TWO (2) IDENTIFIERS: Name and Date of confirmed by patient verbally. FALL SCREENING: Has the patient had 2 falls in the last year or 1 fall with injury or currently using an Ambulatory Assistive Device (Walker, Cane, Wheelchair, Crutches, etc.)? No PATIENT GENDER DATA: Assigned female at . status: : No status: NO. PATIENT RELEVANT IMPLANT DATA REVIEWED: Not Applicable PATIENT PRESENTS WITH AN IMPLANTABLE OR ATTACHED ASSISTANT PROFESSOR OF COMMUNICATION: No RADIOLOGY DEPARTMENT: General X-ray: Exam(s) Completed: Spine X-Ray(s): Cervical AP / LAT / FLEX-EXT PERIPHERAL IV DATA: Not applicable SIGNED BY: RT Juan Manuel(Kelsy) February 01, 2025 3:16 [facility]06-18-2025 History of Present illness Narrative* Johnathon Henriquez RT(R) - 02/01/2025 2:15 PM EDT Radiology Service Progress Note PATIENT NAME: Rolando Peters DATE OF SERVICE: February 01, 2025 TIME: 3:25 PM PATIENT IDENTITY VERIFICATION COMPLETED USING TWO (2) IDENTIFIERS: Name and Date of confirmedby patient verbally. FALL SCREENING: Has the patient had 2 falls in the last year or 1 fall with injury or currently using an Ambulatory Assistive Device (Walker, Cane, Wheelchair, Crutches, etc.)? No PATIENT GENDER DATA: Assigned female at . status: : No status:NO. PATIENT RELEVANT IMPLANT DATA REVIEWED: Yes PATIENT PRESENTS WITH AN IMPLANTABLE OR ATTACHED ASSISTANT PROFESSOR OF COMMUNICATION: No RADIOLOGY DEPARTMENT: MR; Exam(s) Completed: Spine: Cervical spine and Lumbar spine. Lavender Administered: No PERIPHERAL IV DATA: Not applicable SIGNED BY: RT Flavio(Kelsy) February 01, 2025 3:25 PM documented in this encounterSumma Health [facility]06-18-2025 NoteHNO ID: [id number] Author: JOHNATHON HENRIQUEZ RT(R) Service: Radiology Author Type: Technologist Type: Progress Notes Filed: 02/01/2025 15:26 Note Text: Radiology Service Progress Note PATIENT NAME: Rolando Peters DATE OF SERVICE: February 01, 2025 TIME: 3:25 PM PATIENT IDENTITY VERIFICATION COMPLETED USING TWO (2) IDENTIFIERS: Name and Date of confirmed by patient verbally. FALL SCREENING: Has the patient had 2 falls in the last year or 1 fall with injury or currently using an Ambulatory Assistive Device (Walker, Cane, Wheelchair, Crutches, etc.)? No PATIENT GENDER DATA: Assigned female at . status: : No status: NO. PATIENT RELEVANT IMPLANT DATA REVIEWED: Yes PATIENT PRESENTS WITH AN IMPLANTABLE OR ATTACHED ASSISTANT PROFESSOR OF COMMUNICATION: No RADIOLOGY DEPARTMENT: MR; Exam(s) Completed: Spine: Cervical spine and Lumbar spine. Lavender Administered: No PERIPHERAL IV DATA: Not applicable SIGNED BY: RT Flavio(R) February 01, 2025 3:25 [facility]06-13-2025 History of Present illness Narrative* Celia Al DO - 01/27/2025 11:20 AM EDT Subjective Patient ID: Rolando Peters is a 80 y.o. female who presents for [facility] Follow up (Transfusion ). HPI Patient reports she is here to follow-up [facility] transfusion. Patient had hemoglobin of 6.1 has had a history of anemia recent endoscopy colonoscopy found to have some internal hemorrhoids anticoagulated on Eliquis due to her atrial fibrillation. Did have episode of bloody stool. In the ER was given 2 units of packed red blood cells. After transfusion her hemoglobin went to 8.8. Patient was then sent home and told to follow-up with her PCP. Review of Systems Constitutional: Negative for activity change, appetite change, fatigue and fever. HENT: Negative for congestion. Respiratory: Negative for cough, choking and chest tightness. Cardiovascular: Negative for chest pain, palpitations and leg swelling. Musculoskeletal: Negative for arthralgias, back pain and gait problem. Skin: Positive for wound. Negative for color change and pallor. Right great toe cut Neurological: Negative for dizziness, facial asymmetry, light-headedness and headaches. Objective BP 126/50 (BP Location: Left arm, Patient Position: Sitting) Pulse 78 Wt 61.1 kg (134 lb 9.6 oz) SpO2 95% BMI 21.08 kg/m BSA Body surface area is 1.7 meters squared. Physical Exam Constitutional: General: She is not in acute distress. Appearance: Normal appearance. She is not toxic-appearing. HENT: Head: Normocephalic. Right Ear: Tympanic membrane, ear canal and external ear normal. Left Ear: Tympanic membrane, ear canal and external ear normal. Eyes: Conjunctiva/sclera: Conjunctivae normal. Pupils: Pupils are equal, round, and reactive to light. Cardiovascular: Rate and Rhythm: Normal rate and regular rhythm. Pulses: Normal pulses. Heart sounds: Normal heart sounds. Pulmonary: Effort: No respiratory distress. Breath sounds: No wheezing, rhonchi or rales. Abdominal: General: Bowel sounds are normal. There is no distension. Palpations: Abdomen is soft. Tenderness: There is no abdominal tenderness. Musculoskeletal: General: No swelling or tenderness. Skin: Findings: Lesion present. No rash. Comments: Right great toe cut 1/2 scabbed with surrounding erythema Neurological: General: No focal deficit present. Mental Status: She is alert and oriented to person, place, and time. Mental status is at baseline. Gait: Gait abnormal. Psychiatric: Mood and Affect: Mood normal. Behavior: Behavior normal. Thought Content: Thought content normal. Judgment: Judgment normal. Orders Only on 01/16/2025 Component Date Value Ref Range Status WHITE BLOOD CELL COUNT 01/16/2025 8.3 3.8 - 10.8 Thousand/uL Final RED BLOOD CELL COUNT 01/16/2025 2.37 (L) 3.80 - 5.10 Million/uL Final HEMOGLOBIN 01/16/2025 6.1 (L) 11.7 - 15.5 g/dL Final Comment: Verified by repeat analysis. HEMATOCRIT 01/16/2025 20.5 (L) 35.0 - 45.0 % Final MCV 01/16/2025 86.5 80.0 - 100.0 fL Final MCH 01/16/2025 25.7 (L) 27.0 - 33.0 pg Final MCHC 01/16/2025 29.8 (L) 32.0 - 36.0 g/dL Final Comment: For adults, a slight decrease in the calculated MCHC value (in the range of 30 to 32 g/dL) is most likely not clinically significant; however, it should be interpreted with caution in correlation with other red cell parameters and the patient's clinical condition. RDW 01/16/2025 14.9 11.0 - 15.0 % Final PLATELET COUNT 01/16/2025 337 140 - 400 Thousand/uL Final MPV 01/16/2025 9.3 7.5 - 12.5 fL Final ABSOLUTE NEUTROPHILS 01/16/2025 6,557 1,500 - 7,800 cells/uL Final ABSOLUTE LYMPHOCYTES 01/16/2025 813 (L) 850 - 3,900 cells/uL Final ABSOLUTE MONOCYTES 01/16/2025 730 200 - 950 cells/uL Final ABSOLUTE EOSINOPHILS 01/16/2025 133 15 - 500 cells/uL Final ABSOLUTE BASOPHILS 01/16/2025 66 0 - 200 cells/uL Final NEUTROPHILS 01/16/2025 79 % Final LYMPHOCYTES 01/16/2025 9.8 % Final MONOCYTES 01/16/2025 8.8 % Final EOSINOPHILS 01/16/2025 1.6 % Final BASOPHILS 01/16/2025 0.8 % Final COMMENT(S) 01/16/2025 Final Ovalocytes 2 + Orders Only on 12/12/2024 Component Date Value Ref Range Status WHITE BLOOD CELL COUNT 12/15/2024 9.9 3.8 - 10.8 Thousand/uL Final RED BLOOD CELL COUNT 12/15/2024 3.04 (L) 3.80 - 5.10 Million/uL Final HEMOGLOBIN 12/15/2024 8.3 (L) 11.7 - 15.5 g/dL Final HEMATOCRIT 12/15/2024 27.4 (L) 35.0 - 45.0 % Final MCV 12/15/2024 90.1 80.0 - 100.0 fL Final MCH 12/15/2024 27.3 27.0 - 33.0 pg Final MCHC 12/15/2024 30.3 (L) 32.0 - 36.0 g/dL Final Comment: For adults, a slight decrease in the calculated MCHC value (in the range of 30 to 32 g/dL) is most likely not clinically significant; however, it should be interpreted with caution in correlation with other red cell parameters and the patient's clinical condition. RDW 12/15/2024 15.1 (H) 11.0 - 15.0 % Final PLATELET COUNT 12/15/2024 264 140 - 400 Thousand/uL Final MPV 12/15/2024 9.1 7.5 - 12.5 fL Final ABSOLUTE NEUTROPHILS 12/15/2024 7,504 1,500 - 7,800 cells/uL Final ABSOLUTE LYMPHOCYTES 12/15/2024 1,406 850 - 3,900 cells/uL Final ABSOLUTE MONOCYTES 12/15/2024 861 200 - 950 cells/uL Final ABSOLUTE EOSINOPHILS 12/15/2024 89 15 - 500 cells/uL Final ABSOLUTE BASOPHILS 12/15/2024 40 0 - 200 cells/uL Final NEUTROPHILS 12/15/2024 75.8 % Final LYMPHOCYTES 12/15/2024 14.2 % Final MONOCYTES 12/15/2024 8.7 % Final EOSINOPHILS 12/15/2024 0.9 % Final BASOPHILS 12/15/2024 0.4 % Final Office Visit on 11/18/2024 Component Date Value Ref Range Status POC Glucose, Urine 11/18/2024 NEGATIVE NEGATIVE mg/dl Final Neg POC Bilirubin, Urine 11/18/2024 NEGATIVE NEGATIVE Final POC Ketones, Urine 11/18/2024 NEGATIVE NEGATIVE mg/dl Final POC Specific [place], Urine 11/18/2024 1.010 1.005 - 1.035 Final POC Blood, Urine 11/18/2024 NEGATIVE NEGATIVE Final POC PH, Urine 11/18/2024 5.5 No Reference Range Established PH Final POC Protein, Urine 11/18/2024 30 (1+) (A) NEGATIVE mg/dl Final POC Urobilinogen, Urine 11/18/2024 0.2 0.2, 1.0 EU/DL Final Poc Nitrite, Urine 11/18/2024 NEGATIVE NEGATIVE Final POC Leukocytes, Urine 11/18/2024 NEGATIVE NEGATIVE Final WHITE BLOOD CELL COUNT 11/25/2024 11.5 (H) 3.8 - 10.8 Thousand/uL Final RED BLOOD CELL COUNT 11/25/2024 3.01 (L) 3.80 - 5.10 Million/uL Final HEMOGLOBIN 11/25/2024 8.3 (L) 11.7 - 15.5 g/dL Final HEMATOCRIT 11/25/2024 26.8 (L) 35.0 - 45.0 % Final MCV 11/25/2024 89.0 80.0 - 100.0 fL Final MCH 11/25/2024 27.6 27.0 - 33.0 pg Final MCHC 11/25/2024 31.0 (L) 32.0 - 36.0 g/dL Final Comment: For adults, a slight decrease in the calculated MCHC value (in the range of 30 to 32 g/dL) is most likely not clinically significant; however, it should be interpreted with caution in correlation with other red cell parameters and the patient's clinical condition. RDW 11/25/2024 15.0 11.0 - 15.0 % Final PLATELET COUNT 11/25/2024 324 140 - 400 Thousand/uL Final MPV 11/25/2024 9.9 7.5 - 12.5 fL Final ABSOLUTE NEUTROPHILS 11/25/2024 8,809 (H) 1,500 - 7,800 cells/uL Final ABSOLUTE LYMPHOCYTES 11/25/2024 1,702 850 - 3,900 cells/uL Final ABSOLUTE MONOCYTES 11/25/2024 817 200 - 950 cells/uL Final ABSOLUTE EOSINOPHILS 11/25/2024 127 15 - 500 cells/uL Final ABSOLUTE BASOPHILS 11/25/2024 46 0 - 200 cells/uL Final NEUTROPHILS 11/25/2024 76.6 % Final LYMPHOCYTES 11/25/2024 14.8 % Final MONOCYTES 11/25/2024 7.1 % Final EOSINOPHILS 11/25/2024 1.1 % Final BASOPHILS 11/25/2024 0.4 % Final GLUCOSE 11/25/2024 90 65 - 99 mg/dL Final Comment: Fasting reference interval UREA NITROGEN (BUN) 11/25/2024 30 (H) 7 - 25 mg/dL Final CREATININE 11/25/2024 0.98 0.60 - 1.00 mg/dL Final EGFR 11/25/2024 59 (L) > OR = 60 mL/min/1.73m2 Final SODIUM 11/25/2024 137 135 - 146 mmol/L Final POTASSIUM 11/25/2024 4.0 3.5 - 5.3 mmol/L Final CHLORIDE 11/25/2024 108 98 - 110 mmol/L Final CARBON DIOXIDE 11/25/2024 20 20 - 32 mmol/L Final ELECTROLYTE BALANCE 11/25/2024 9 7 - 17 mmol/L (calc) Final CALCIUM 11/25/2024 8.9 8.6 - 10.4 mg/dL Final PROTEIN, TOTAL 11/25/2024 5.7 (L) 6.1 - 8.1 g/dL Final ALBUMIN 11/25/2024 3.7 3.6 - 5.1 g/dL Final BILIRUBIN, TOTAL 11/25/2024 0.6 0.2 - 1.2 mg/dL Final ALKALINE PHOSPHATASE 11/25/2024 41 37 - 153 U/L Final AST 11/25/2024 12 10 - 35 U/L Final ALT 11/25/2024 13 6 - 29 U/L Final Orders Only on 11/16/2024 Component Date Value Ref Range Status CHOLESTEROL, TOTAL 11/16/2024 129 <200 mg/dL Final HDL CHOLESTEROL 11/16/2024 57 > OR = 50 mg/dL Final TRIGLYCERIDES 11/16/2024 94 <150 mg/dL Final LDL-CHOLESTEROL 11/16/2024 54 mg/dL (calc) Final Comment: Reference range: <100 Desirable range <100 mg/dL for primary prevention; <70 mg/dL for patients with CHD or diabetic patients with > or = 2 CHD risk factors. LDL-C is now calculated using the Jefferson calculation, which is a validated novel method providing better accuracy than the Friedewald equation in the estimation of LDL-C. Balbir OLSON et al. SARAH. 2013;310(19): 1758-3129 (http://education.Bluetector.Kmsocial/faq/VNT712) CHOL/HDLC RATIO 11/16/2024 2.3 <5.0 (calc) Final NON HDL CHOLESTEROL 11/16/2024 72 <130 mg/dL (calc) Final Comment: For patients with diabetes plus 1 major ASCVD risk factor, treating to a non-HDL-C goal of <100 mg/dL (LDL-C of <70 mg/dL) is considered a therapeutic option. GLUCOSE 11/16/2024 91 65 - 99 mg/dL Final Comment: Fasting reference interval UREA NITROGEN (BUN) 11/16/2024 23 7 - 25 mg/dL Final CREATININE 11/16/2024 0.93 0.60 - 1.00 mg/dL Final EGFR 11/16/2024 63 > OR = 60 mL/min/1.73m2 Final SODIUM 11/16/2024 139 135 - 146 mmol/L Final POTASSIUM 11/16/2024 4.0 3.5 - 5.3 mmol/L Final CHLORIDE 11/16/2024 106 98 - 110 mmol/L Final CARBON DIOXIDE 11/16/2024 24 20 - 32 mmol/L Final ELECTROLYTE BALANCE 11/16/2024 9 7 - 17 mmol/L (calc) Final CALCIUM 11/16/2024 8.7 8.6 - 10.4 mg/dL Final PROTEIN, TOTAL 11/16/2024 5.4 (L) 6.1 - 8.1 g/dL Final ALBUMIN 11/16/2024 3.6 3.6 - 5.1 g/dL Final BILIRUBIN, TOTAL 11/16/2024 0.6 0.2 - 1.2 mg/dL Final ALKALINE PHOSPHATASE 11/16/2024 43 37 - 153 U/L Final AST 11/16/2024 12 10 - 35 U/L Final ALT 11/16/2024 18 6 - 29 U/L Final WHITE BLOOD CELL COUNT 11/16/2024 12.4 (H) 3.8 - 10.8 Thousand/uL Final RED BLOOD CELL COUNT 11/16/2024 2.68 (L) 3.80 - 5.10 Million/uL Final HEMOGLOBIN 11/16/2024 7.4 (L) 11.7 - 15.5 g/dL Final HEMATOCRIT 11/16/2024 24.1 (L) 35.0 - 45.0 % Final MCV 11/16/2024 89.9 80.0 - 100.0 fL Final MCH 11/16/2024 27.6 27.0 - 33.0 pg Final MCHC 11/16/2024 30.7 (L) 32.0 - 36.0 g/dL Final Comment: For adults, a slight decrease in the calculated MCHC value (in the range of 30 to 32 g/dL) is most likely not clinically significant; however, it should be interpreted with caution in correlation with other red cell parameters and the patient's clinical condition. RDW 11/16/2024 15.1 (H) 11.0 - 15.0 % Final PLATELET COUNT 11/16/2024 280 140 - 400 Thousand/uL Final MPV 11/16/2024 9.5 7.5 - 12.5 fL Final ABSOLUTE NEUTROPHILS 11/16/2024 10,143 (H) 1,500 - 7,800 cells/uL Final ABSOLUTE LYMPHOCYTES 11/16/2024 1,327 850 - 3,900 cells/uL Final ABSOLUTE MONOCYTES 11/16/2024 856 200 - 950 cells/uL Final ABSOLUTE EOSINOPHILS 11/16/2024 50 15 - 500 cells/uL Final ABSOLUTE BASOPHILS 11/16/2024 25 0 - 200 cells/uL Final NEUTROPHILS 11/16/2024 81.8 % Final LYMPHOCYTES 11/16/2024 10.7 % Final MONOCYTES 11/16/2024 6.9 % Final EOSINOPHILS 11/16/2024 0.4 % Final BASOPHILS 11/16/2024 0.2 % Final TSH W/REFLEX TO FT4 11/16/2024 1.13 0.40 - 4.50 mIU/L Final VITAMIN D,25-OH,TOTAL,IA 11/16/2024 27 (L) 30 - 100 ng/mL Final Comment: Vitamin D Status 25-OH Vitamin D: Deficiency: <20 ng/mL Insufficiency: 20 - 29 ng/mL Optimal: > or = 30 ng/mL For 25-OH Vitamin D testing on patients on D2-supplementation and patients for whom quantitation of D2 and D3 fractions is required, the QuestAssureD(TM) 25-OH VIT D, (D2,D3), LC/MS/MS is recommended: order code 11896 (patients >2yrs). See Note 1 Note 1 For additional information, please refer to http://education.Bluetector.Kmsocial/faq/BQE188 (This link is being provided for informational/ educational purposes only.) HEMOGLOBIN A1c 11/16/2024 6.9 (H) <5.7 % of total Hgb Final Comment: For someone without known diabetes, a hemoglobin A1c value of 6.5% or greater indicates that they may have diabetes and this should be confirmed with a follow-up test. For someone with known diabetes, a value <7% indicates that their diabetes is well controlled and a value greater than or equal to 7% indicates suboptimal control. A1c targets should be individualized based on duration of diabetes, age, comorbid conditions, and other considerations. Currently, no consensus exists regarding use of hemoglobin A1c for diagnosis of diabetes for children. eAG (mg/dL) 11/16/2024 151 mg/dL Final eAG (mmol/L) 11/16/2024 8.4 mmol/L Final Lab Requisition on 11/07/2024 Component Date Value Ref Range Status Troponin I, High Sensitivity 11/07/2024 14 (H) 0 - 13 ng/L Final Lab on 08/02/2024 Component Date Value Ref Range Status Glucose 08/02/2024 103 (H) 74 - 99 mg/dL Final Sodium 08/02/2024 137 136 - 145 mmol/L Final Potassium 08/02/2024 4.9 3.5 - 5.3 mmol/L Final Chloride 08/02/2024 106 98 - 107 mmol/L Final Bicarbonate 08/02/2024 22 21 - 32 mmol/L Final Anion Gap 08/02/2024 14 10 - 20 mmol/L Final Urea Nitrogen 08/02/2024 15 6 - 23 mg/dL Final Creatinine 08/02/2024 1.01 0.50 - 1.05 mg/dL Final eGFR 08/02/2024 57 (L) >60 mL/min/1.73m*2 Final Calculations of estimated GFR are performed using the 2020 CKD-EPI Study Refit equation without therace variable for the IDMS-Traceable creatinine methods. https://jasn.asnjournals.org/content//ASN.6724198934 Calcium 08/02/2024 8.9 8.6 - 10.6 mg/dL Final Albumin 08/02/2024 4.0 3.4 - 5.0 g/dL Final Alkaline Phosphatase 08/02/2024 46 33 - 136 U/L Final Total Protein 08/02/2024 6.5 6.4 - 8.2 g/dL Final AST 08/02/2024 26 9 - 39 U/L Final Bilirubin, Total 08/02/2024 0.5 0.0 - 1.2 mg/dL Final ALT 08/02/2024 24 7 - 45 U/L Final Patients treated with Sulfasalazine may generate falsely decreased results for ALT. Thyroid Stimulating Hormone 08/02/2024 1.42 0.44 - 3.98 mIU/L Final Magnesium 08/02/2024 1.99 1.60 - 2.40 mg/dL Final Phosphorus 08/02/2024 4.8 2.5 - 4.9 mg/dL Final The performance characteristics of phosphorus testing in heparinized plasma have been validated by the individual laboratory site where testing is performed. Testing on heparinized plasma is not approved by the FDA; however, such approval is not necessary. Vitamin B12 08/02/2024 207 (L) 211 - 911 pg/mL Final Folate, Serum 08/02/2024 23.5 >5.0 ng/mL Final Methylmalonic Acid, S 08/02/2024 0.25 0.00 - 0.40 umol/L Final INTERPRETIVE INFORMATION: MMA Serum/Plasma, Vitamin B12 Status This test was developed and its performance characteristics determined by [facility]. It has not been cleared or approved by the US Food and Drug Administration. This test was performed in a CLIA certified laboratory and is intended for clinical purposes. Performed By: [facility] [address] [place] [id number] Needle Punch Operator: Rosalee Upton MD, PhD CLIA Number: [id number] Iron 08/02/2024 45 35 - 150 ug/dL Final UIBC 08/02/2024 354 110 - 370 ug/dL Final TIBC 08/02/2024 399 240 - 445 ug/dL Final % Saturation 08/02/2024 11 (L) 25 - 45 % Final Ferritin 08/02/2024 71 8 - 150 ng/mL Final Lab on 06/13/2024 Component Date Value Ref Range Status Albumin, Urine Random 06/13/2024 1,587.3 Not established mg/L Final Creatinine, Urine Random 06/13/2024 67.3 20.0 - 320.0 mg/dL Final Albumin/Creatinine Ratio 06/13/2024 2,358.5 (H) <30.0 ug/mg Creat Final Glucose 06/13/2024 137 (H) 74 - 99 mg/dL Final Sodium 06/13/2024 137 136 - 145 mmol/L Final Potassium 06/13/2024 4.6 3.5 - 5.3 mmol/L Final Chloride 06/13/2024 103 98 - 107 mmol/L Final Bicarbonate 06/13/2024 22 21 - 32 mmol/L Final Anion Gap 06/13/2024 17 10 - 20 mmol/L Final Urea Nitrogen 06/13/2024 16 6 - 23 mg/dL Final Creatinine 06/13/2024 1.03 0.50 - 1.05 mg/dL Final eGFR 06/13/2024 56 (L) >60 mL/min/1.73m*2 Final Calculations of estimated GFR are performed using the 2020 CKD-EPI Study Refit equation without therace variable for the IDMS-Traceable creatinine methods. https://jasn.asnjournals.org/content/early//ASN.8551896388 Calcium 06/13/2024 8.7 8.6 - 10.6 mg/dL Final Albumin 06/13/2024 4.0 3.4 - 5.0 g/dL Final Alkaline Phosphatase 06/13/2024 49 33 - 136 U/L Final Total Protein 06/13/2024 6.2 (L) 6.4 - 8.2 g/dL Final AST 06/13/2024 23 9 - 39 U/L Final Bilirubin, Total 06/13/2024 0.5 0.0 - 1.2 mg/dL Final ALT 06/13/2024 36 7 - 45 U/L Final Patients treated with Sulfasalazine may generate falsely decreased results for ALT. Hemoglobin A1C 06/13/2024 5.5 See comment % Final Estimated Average Glucose 06/13/2024 111 Not Established mg/dL Final WBC 06/13/2024 5.3 4.4 - 11.3 x10*3/uL Final nRBC 06/13/2024 0.0 0.0 - 0.0 /100 WBCs Final RBC 06/13/2024 3.35 (L) 4.00 - 5.20 x10*6/uL Final Hemoglobin 06/13/2024 9.7 (L) 12.0 - 16.0 g/dL Final Hematocrit 06/13/2024 30.8 (L) 36.0 - 46.0 % Final MCV 06/13/2024 92 80 - 100 fL Final MCH 06/13/2024 29.0 26.0 - 34.0 pg Final MCHC 06/13/2024 31.5 (L) 32.0 - 36.0 g/dL Final RDW 06/13/2024 13.0 11.5 - 14.5 % Final Platelets 06/13/2024 204 150 - 450 x10*3/uL Final Neutrophils % 06/13/2024 74.1 40.0 - 80.0 % Final Immature Granulocytes %, Automated 06/13/2024 0.4 0.0 - 0.9 % Final Immature Granulocyte Count (IG) includes promyelocytes, myelocytes and metamyelocytes but does not include bands. Percent differential counts (%) should be interpreted in the context of the absolute cell counts (cells/UL). Lymphocytes % 06/13/2024 14.1 13.0 - 44.0 % Final Monocytes % 06/13/2024 7.7 2.0 - 10.0 % Final Eosinophils % 06/13/2024 2.4 0.0 - 6.0 % Final Basophils % 06/13/2024 1.3 0.0 - 2.0 % Final Neutrophils Absolute 06/13/2024 3.93 1.60 - 5.50 x10*3/uL Final Percent differential counts (%) should be interpreted in the context of the absolute cell counts (cells/uL). Immature Granulocytes Absolute, Au* 06/13/2024 0.02 0.00 - 0.50 x10*3/uL Final Lymphocytes Absolute 06/13/2024 0.75 (L) 0.80 - 3.00 x10*3/uL Final Monocytes Absolute 06/13/2024 0.41 0.05 - 0.80 x10*3/uL Final Eosinophils Absolute 06/13/2024 0.13 0.00 - 0.40 x10*3/uL Final Basophils Absolute 06/13/2024 0.07 0.00 - 0.10 x10*3/uL Final WERO 06/13/2024 Negative Negative Final The Antinuclear Antibody (WERO) test was performed using indirect immunofluorescence assay with HEp-2 cells slide. Rheumatoid Factor 06/13/2024 <10 0 - 15 IU/mL Final Citrulline Antibody, IgG 06/13/2024 <1 <3 U/mL Final NEGATIVE < 3 U/ML POSITIVE >=3 U/ML ANCA IFA Titer 06/13/2024 <1:20 <1:20 Final ANCA IFA Pattern 06/13/2024 None Detected None Detected Final INTERPRETIVE INFORMATION: ANCA IFA Pattern Neutrophil Cytoplasmic Antibodies (C-ANCA = granular cytoplasmic staining, P-ANCA = perinuclear staining) are found in the serum of over 90 percent of patients with certain necrotizing systemic vasculitides, and usually in less than 5 percent of patients with collagen vascular disease or arthritis. Performed By: [facility] [address] [place] [address] Needle Punch Operator: Rosalee Upton MD, PhD CLIA Number: [id number] SSA-52 (Ro52) (YOCASTA) Antibody, IgG 06/13/2024 2 0 - 40 AU/mL Final INTERPRETIVE INFORMATION: SSA-52 (Ro52) (YOCASTA) Antibody, IgG 29 AU/mL or Less ............. Negative 30 - 40 AU/mL ................ Equivocal 41 AU/mL or Greater .......... Positive SSA-52 (Ro52) and/or SSA-60 (Ro60) antibodies are associated with a diagnosis of Sjogren syndrome, systemic lupus erythematosus (SLE), and systemic sclerosis. SSA-52 antibody overlaps significantly with the major SSc-related antibodies. SSA-52 (Ro52) antibody occurs frequently in patients with inflammatory myopathies, often in the presence of interstitial lung disease. SSA-60 (Ro60) (YOCASTA) Antibody, IgG 06/13/2024 0 0 - 40 AU/mL Final REFERENCE INTERVAL: SSA-60 (Ro60) (YOCASTA) Antibody, IgG 29 AU/mL or Less ............. Negative 30 - 40 AU/mL ................ Equivocal 41 AU/mL or Greater .......... Positive Shannon/CUFF TURNER MACHINE OPERATOR (YOCASTA) Ab, IgG 06/13/2024 2 0 - 19 Units Final INTERPRETIVE INFORMATION: Shannon/CUFF TURNER MACHINE OPERATOR (YOCASTA) Antibody, IgG 19 Units or Less ............. Negative 20 to 39 Units ............... Weak Positive 40 to 80 Units ............... Moderate Positive 81 Units or greater .......... Strong Positive Shannon/CUFF TURNER MACHINE OPERATOR antibodies are frequently seen in patients with mixed connective tissue disease (MCTD) and are also associated with other systemic autoimmune rheumatic diseases (SARDs) such as systemic lupus erythematosus (SLE), systemic sclerosis, and myositis. Antibodies targeting the Shannon/CUFF TURNER MACHINE OPERATOR antigenic complex also recognize Shannon antigens, therefore, the Shannon antibody response must be considered when interpreting these results. Neelima-1 (Histidyl-tRNA Synthetase) Ab* 06/13/2024 1 0 - 40 AU/mL Final INTERPRETIVE INFORMATION: Neelima-1 Antibody, IgG 29 AU/mL or less.........Negative 30-40 AU/mL..............Equivocal 41 AU/mL or greater......Positive Presence of Neelima-1 (antihistidyl transfer RNA [t-RNA] synthetase) antibody is associated with polymyositis and may also be seen in patients with dermatomyositis. Neelima-1 antibody is associated with pulmonary involvement (interstitial lung disease), Raynaud phenomenon, arthritis, and motorboat mechanic helper's hands (implicated in antisynthetase syndrome). PL-12 (alanyl-tRNA synthetase) Ant* 06/13/[address]-7 (threonyl-tRNA synthetase) An* 06/13/2024 Negative Negative Final EJ (glycyl-tRNA synthetase) Antibo* 06/13/2024 Negative Negative Final OJ (isoleucyl-tRNA synthetase) Ant* 06/13/2024 Negative Negative Final SRP (Signal Recognition Particle) * 06/13/2024 Negative Negative Final Ku Antibody 06/13/2024 Negative Negative Final PM/Scl 100 Antibody, IgG 06/13/2024 Negative Negative Final INTERPRETIVE INFORMATION: PM/Scl-100 Antibody, IgG by Immunoblot The presence of PM/Scl-100 IgG antibody along with a positive WERO IFA nucleolar pattern is associated with connective tissue diseases such as polymyositis (PM), dermatomyositis (DM), systemic sclerosis (SSc), and polymyositis/systemic sclerosis overlap syndrome. The clinical relevance of PM/Scl-100 IgG antibody with a negative WERO IFA nucleolar pattern is unknown. PM/Scl-100 is the main target epitope of the PM/Scl complex, although antibodies to other targets not detected by this assay may occur. This test was developed and its performance characteristics determined by [facility]. It has not been cleared or approved by the US Food and Drug Administration. This test was performed in a CLIA certified laboratory and is intended for clinical purposes. Fibrillarin (U3 CUFF TURNER MACHINE OPERATOR) Ab, IgG 06/13/2024 Negative Negative Final Comment: Interpretive Information: Fibrillarin (U3 CUFF TURNER MACHINE OPERATOR) Antibody, IgG The presence of fibrillarin (U3-CUFF TURNER MACHINE OPERATOR) IgG antibodies in association with an WERO IFA nucleolar pattern is suggestive of systemic sclerosis (SSc). In SSc, these antibodies are associated with distinct clinical features, such as younger age at disease onset, frequent internal organ involvement (pulmonary hypertension, myositis and renal disease). Fibrillarin antibodies are detected more frequently in patients with SSc compared to other ethnic groups. Strong correlation with WERO IFA results is recommended. In a multi-ethnic cohort of SSc patients (n=98), U3-CUFF TURNER MACHINE OPERATOR antibodies detected by immunoblot had an agreement of 98.9 percent with the gold standard immunoprecipitation (IP) assay. Approximately 71 percent (5/7) of the borderline U3-CUFF TURNER MACHINE OPERATOR results with WERO nucleolar pattern in this cohort were IP negative. This test was developed and its performance characteristics determined by [facility]. It has not been cleared or approved by the US Food and Drug Administration. This test was performed in a CLIA certified laboratory and is intended for clinical purposes. Performed By: [facility] [address] [place] [id number] Needle Punch Operator: Rosalee Upton MD, PhD CLIA Number: [id number] Mi-2 (nuclear helicase protein) An* 06/13/2024 Negative Negative Final P155/140 Antibody 06/13/2024 Negative Negative Final TIF-1 gamma (155 kDa) Ab 06/13/2024 Negative Negative Final SAE1 (SUMO activating enzyme) Ab 06/13/2024 Negative Negative Final MDA5 (CADM-140) Ab 06/13/2024 Negative Negative Final NXP2 (Nuclear matrix protein-2) Ab 06/13/2024 Negative Negative Final Myositis Panel Interpretive Data 06/13/2024 See Note Final Comment: INTERPRETIVE INFORMATION: Extended Myositis Panel If present, myositis-specific antibodies (MSA) are specific for myositis, and may be useful in establishing diagnosis as well as prognosis. MSAs are generally regarded as mutually exclusive with rare exceptions; the occurrence of two or more MSAs should be carefully evaluated in the context of patient's clinical presentation. Myositis-associated antibodies (MAA) may be found in patients with CTD including overlap syndromes, and are generally not specific for myositis. The following table will help in identifying the association of any antibodies found as either MSAs or Willa. Antibody Specificity . . . . . . . . . . . . MSA . . . . MAA SSA 52 (Ro) (YOCASTA) Antibody IgG . . . . . . . . . . . . . X SSA 60 (Ro) (YOCASTA) Antibody IgG . . . . . . . . . . . . . X Shannon/CUFF TURNER MACHINE OPERATOR (YOCASTA) Ab, IgG . . . . . . . . . . . . . . . . X Neelima-1 (histidyl-tRNA synthetase) Ab, IgG . . X PL-12 (alanyl-tRNA synthetase) Antibody . . X PL-7 (threonyl-tRNA synthetase) Antibody . . X EJ (glycyl-tRNA synthetase) Antibody . . . . X OJ (isoleucyl-tRNA synthetase) Antibody . . X SRP (Signal Recognition Particle) Ab . . . . X Ku Antibody . . . . . . . . . . . . . . . . . . . . . . X PM/SCL 100 Antibody, IgG . . . . . . . . . . . . . . . . X Fibrillarin (U3 CUFF TURNER MACHINE OPERATOR) Ab, IgG . . . . . . . . . . . . . . X Mi-2 (nuclear helicase protein) Antibody . . X P155/140 Antibody . . . . . . . . . . . . . X TIF-1 gamma (155 kDa) Ab . . . . . . . . . . X SAE1 (SUMO activating enzyme) Ab . . . . . . X MDA5 (CADM-140) Ab . . . . . . . . . . . . X NXP2 (Nuclear matrix proten-2)Ab . . . . . . X This test was developed and its performance characteristics determined by [facility]. It has not been cleared or approved by the US Food and Drug Administration. This test was performed in a CLIA certified laboratory and is intended for clinical purposes. Aspergillus fumigatus #1 Ab, Preci* 06/13/2024 None Detected None Detected Final Aspergillus fumigatus #6 Ab, Preci* 06/13/2024 None Detected None Detected Final Aureobasidium pullulans Ab, Precip* 06/13/2024 None Detected None Detected Final [place] Serum Ab, Precipitin 06/13/2024 None Detected None Detected Final Micropolyspora Faeni Ab, Precipitin 06/13/2024 None Detected None Detected Final Testing includes antibodies directed at Aureobasidium pullulans, Aspergillus fumigatus #1, Aspergillus fumigatus #6, Micropolyspora faeni, and [place] Serum. Performed By: [facility] [address] [place] [id number] Needle Punch Operator: Rosalee Upton MD, PhD CLIA Number: [id number] Anti-SSA 06/13/2024 <0.2 <1.0 AI Final < 1.0 = NEGATIVE >=1.0 = POSITIVE Anti-SSB 06/13/2024 <0.2 <1.0 AI Final < 1.0 = NEGATIVE >=1.0 = POSITIVE Lab on 05/02/2024 Component Date Value Ref Range Status Glucose 05/02/2024 117 (H) 74 - 99 mg/dL Final Sodium 05/02/2024 139 136 - 145 mmol/L Final Potassium 05/02/2024 4.4 3.5 - 5.3 mmol/L Final Chloride 05/02/2024 105 98 - 107 mmol/L Final Bicarbonate 05/02/2024 24 21 - 32 mmol/L Final Anion Gap 05/02/2024 14 10 - 20 mmol/L Final Urea Nitrogen 05/02/2024 20 6 - 23 mg/dL Final Creatinine 05/02/2024 1.13 (H) 0.50 - 1.05 mg/dL Final eGFR 05/02/2024 50 (L) >60 mL/min/1.73m*2 Final Calculations of estimated GFR are performed using the 2020 CKD-EPI Study Refit equation without therace variable for the IDMS-Traceable creatinine methods. https://jasn.asnjournals.org/content/earlyASN.4271348190 Calcium 05/02/2024 8.8 8.6 - 10.6 mg/dL Final Phosphorus 05/02/2024 4.2 2.5 - 4.9 mg/dL Final The performance characteristics of phosphorus testing in heparinized plasma have been validated by the individual laboratory site where testing is performed. Testing on heparinized plasma is not approved by the FDA; however, such approval is not necessary. Albumin 05/02/2024 3.8 3.4 - 5.0 g/dL Final Lab on 04/19/2024 Component Date Value Ref Range Status Glucose 04/19/2024 91 74 - 99 mg/dL Final Sodium 04/19/2024 137 136 - 145 mmol/L Final Potassium 04/19/2024 4.9 3.5 - 5.3 mmol/L Final Chloride 04/19/2024 104 98 - 107 mmol/L Final Bicarbonate 04/19/2024 22 21 - 32 mmol/L Final Anion Gap 04/19/2024 16 10 - 20 mmol/L Final Urea Nitrogen 04/19/2024 14 6 - 23 mg/dL Final Creatinine 04/19/2024 1.08 (H) 0.50 - 1.05 mg/dL Final eGFR 04/19/2024 53 (L) >60 mL/min/1.73m*2 Final Calculations of estimated GFR are performed using the 2020 CKD-EPI Study Refit equation without therace variable for the IDMS-Traceable creatinine methods. https://jasn.asnjournals.org/content/earlyASN.0174785947 Calcium 04/19/2024 8.7 8.6 - 10.6 mg/dL Final Albumin 04/19/2024 3.9 3.4 - 5.0 g/dL Final Alkaline Phosphatase 04/19/2024 53 33 - 136 U/L Final Total Protein 04/19/2024 6.2 (L) 6.4 - 8.2 g/dL Final AST 04/19/2024 33 9 - 39 U/L Final Bilirubin, Total 04/19/2024 0.4 0.0 - 1.2 mg/dL Final ALT 04/19/2024 48 (H) 7 - 45 U/L Final Patients treated with Sulfasalazine may generate falsely decreased results for ALT. WBC 04/19/2024 7.0 4.4 - 11.3 x10*3/uL Final nRBC 04/19/2024 0.0 0.0 - 0.0 /100 WBCs Final RBC 04/19/2024 3.12 (L) 4.00 - 5.20 x10*6/uL Final Hemoglobin 04/19/2024 9.4 (L) 12.0 - 16.0 g/dL Final Hematocrit 04/19/2024 31.6 (L) 36.0 - 46.0 % Final MCV 04/19/2024 101 (H) 80 - 100 fL Final MCH 04/19/2024 30.1 26.0 - 34.0 pg Final MCHC 04/19/2024 29.7 (L) 32.0 - 36.0 g/dL Final RDW 04/19/2024 13.6 11.5 - 14.5 % Final Platelets 04/19/2024 241 150 - 450 x10*3/uL Final Lab on 03/31/2024 Component Date Value Ref Range Status Glucose 03/31/2024 148 (H) 74 - 99 mg/dL Final Sodium 03/31/2024 137 136 - 145 mmol/L Final Potassium 03/31/2024 4.8 3.5 - 5.3 mmol/L Final Chloride 03/31/2024 106 98 - 107 mmol/L Final Bicarbonate 03/31/2024 20 (L) 21 - 32 mmol/L Final Anion Gap 03/31/2024 16 10 - 20 mmol/L Final Urea Nitrogen 03/31/2024 20 6 - 23 mg/dL Final Creatinine 03/31/2024 1.37 (H) 0.50 - 1.05 mg/dL Final eGFR 03/31/2024 40 (L) >60 mL/min/1.73m*2 Final Calculations of estimated GFR are performed using the 2020 CKD-EPI Study Refit equation without therace variable for the IDMS-Traceable creatinine methods. https://jasn.asnjournals.org/content/early/ASN.5443039463 Calcium 03/31/2024 9.0 8.6 - 10.6 mg/dL Final Albumin 03/31/2024 3.6 3.4 - 5.0 g/dL Final Alkaline Phosphatase 03/31/2024 44 33 - 136 U/L Final Total Protein 03/31/2024 5.6 (L) 6.4 - 8.2 g/dL Final AST 03/31/2024 21 9 - 39 U/L Final Bilirubin, Total 03/31/2024 0.3 0.0 - 1.2 mg/dL Final ALT 03/31/2024 26 7 - 45 U/L Final Patients treated with Sulfasalazine may generate falsely decreased results for ALT. There may be more visits with results that are not included. Medications Ordered Prior to Encounter[1] No images are attached to the encounter. Assessment/Plan Diagnoses and all orders for this visit: Anemia, unspecified type - CBC and Auto Differential; Future - Iron and TIBC; Future - Ferritin; Future Cellulitis of right toe - cephalexin (Keflex) 500 mg capsule; Take 1 capsule (500 mg) by mouth 2 times a day for 10 days. - mupirocin (Bactroban) 2 % ointment; Apply topically 3 times a day for 10 days. apply to affected area Lumbar stenosis with neurogenic claudication - cyclobenzaprine (Flexeril) 5 mg tablet; Take 1 tablet (5 mg) by mouth as needed at bedtime for muscle spasms. 1. Patient to have additional blood work performed 2. Patient to start antibiotics and antibiotic cream 3. Patient to try muscle relaxer at bedtime, will have MRI lumbar spine 4. Patient to call questions or concerns [1] Current Outpatient Medications on File Prior to Visit Medication Sig Dispense Refill albuterol 90 mcg/actuation inhaler Inhale 2 puffs every 4 hours if needed. amLODIPine (Norvasc) 2.5 mg tablet Take 1 tablet (2.5 mg) by mouth early in the morning.. 90 tablet1 apixaban (Eliquis) 5 mg tablet Take 1 tablet (5 mg) by mouth twice a day. blood sugar diagnostic (Contour Next Test Strips) strip 1 each 2 times a day. 200 strip 1 cholecalciferol (Vitamin D-3) 50 MCG (2000 UT) tablet Take 2 tablets (100 mcg) by mouth once daily. clindamycin (Cleocin T) 1 % lotion twice a day. Apply sparingly and massage in ezetimibe (Zetia) 10 mg tablet Take 1 tablet (10 mg) by mouth once daily. finerenone (Kerendia) 10 mg tablet tablet Take 1 tablet (10 mg) by mouth once daily. 90 tablet 3 fluocinonide (Lidex) 0.05 % external solution 1 (one) time each day. Apply to affected areas furosemide (Lasix) 20 mg tablet Take 1 tablet (20 mg) by mouth every other day. icosapent ethyL (Vascepa) 1 gram capsule Take 2 capsules (2 g) by mouth twice a day. linagliptin-metformin (Jentadueto XR) 2.5-1,000 mg tablet, IR - ER, biphasic 24hr Take 2 tablets bymouth once daily. 180 tablet 3 losartan (Cozaar) 100 mg tablet Take 1 tablet (100 mg) by mouth once daily. 90 tablet 3 multivit,calc,mins/iron/folic (ONE-A-DAY WOMENS FORMULA ORAL) Take 1 tablet by mouth once daily. pantoprazole (ProtoNix) 40 mg EC tablet Take 1 tablet (40 mg) by mouth. Take 1 tablet (40 mg) by mouth 2 times daily for 30 days, THEN 1 tablet (40 mg) every morning (before breakfast). Do not crush,chew, or split.. rosuvastatin (Crestor) 10 mg tablet TAKE ONE TABLET BY MOUTH EVERY DAY 90 tablet 3 tiotropium (Spiriva Respimat) 2.5 mcg/actuation inhaler Inhale 2 puffs once daily. 12 g 3 [] carvedilol (Coreg) 25 mg tablet Take 0.5 tablets (12.5 mg) by mouth 2 times daily (morning and late afternoon). cyanocobalamin (Vitamin B-12) 1,000 mcg tablet Take 1 tablet (1,000 mcg) by mouth once daily. (Patient not taking: Reported on 01/27/2025) [] sertraline (Zoloft) 25 mg tablet Take 1 tablet (25 mg) by mouth once daily. [DISCONTINUED] guaiFENesin (Mucinex) 600 mg 12 hr tablet Take 2 tablets (1,200 mg) by mouth 2 timesa day. Do not crush, chew, or split. No current facility-administered medications on file prior to visit. [facility] Phone: [phone]) 544-277506-12-2025 Telephone encounter Note* Telephone Encounter - Darrion Nevarez RN - 01/26/2025 3:29 PM EDT I called and spoke to patient, she stated she will go to [facility] tomorrow to obtain updated HgbA1c. Provided office fax number for them to fax us the results. Patient verbalized understanding and appreciative of call. Patient will call office with any questions or concerns. Darrion Nevarez RN [facility]06-12-2025 Miscellaneous Notes* Telephone Encounter - Dariron Nevarez RN - 01/26/2025 3:29 PM EDT I called and spoke to patient, she stated she will go to [facility] tomorrow to obtain updated HgbA1c. Provided office fax number for them to fax us the results. Patient verbalized understanding and appreciative of call. Patient will call office with any questions or concerns. Darrion Nevarez RN [facility] History of Present illness Narrative* Dominick Huggins MD - 01/18/2025 8:45 AM EDT Images from the original note were not included. SPINE SURGERY ESTABLISHED PATIENT DATE OF SERVICE: 01/18/2025 Patient Name: Ms.Marie Kelsy Peters Date of : 1945 Current Age: [age] year old Sex: female Subjective Chief Complaint: History of Present Illness: Ms.Marie Kelsy Peters has a past medical history of diabetes mellitus type 2, INGA, HTN, HLD, bilateral malignant neoplasm of breast status post right-sided mastectomy in 1993 and left-sided mastectomy [id number]. Patient was last seen in the office on 09/16/2023 and reported a longstanding history of neck and low back pain for the last 5 years that had gradually worsened. Her neck pain radiated into right anterior shoulder with occasional tingling to bilateral hands. Denied dexterity issues but endorsed occasional imbalance issues, no falls. In regards to her low back, pain radiated into right gluteal region into occasional bilateral anterior thighs. Described as a burning sensation. She endorsed pa resthesia to the bottom of her feet at night. Her leg pain was most bothersome and worsened with ambulation, relieved with sitting. She reported being able to walk for about 30 minutes until she needed to sit down. However, if she walked on concrete at grocery store she was able to walk for a shorter distance. She noted she had 1 episode of her entire right lower extremity and foot was numb for 1day, self resolved. She had full strength noted on exam with slight difficulty with tandem gait. She wished to consider L3-5 Decompression but wanted to have her lung conditions improved prior. Rolando is a 80-year-old female with a history of back pain, presenting for evaluation of worsening back pain and associated symptoms. Rolando reports a 2-3 year history of back pain that has been gradually worsening. She was previouslyadvised to consider a 3-5 decompression in August of last year, but deferred due to lung issues, including lung nodules, which are now improving. The back pain occasionally radiates into the right gluteal region and extends down the entire right leg and foot, accompanied by paresthesia in both feet, right greater than left. She also experiences urinary urgency but denies any saddle anesthesia. The right leg pain is exacerbated by walking and sometimes by sitting and lying down. She denies weakness in the right leg but reports weakness in right dorsiflexion and AHL, necessitating lifting her leg to prevent foot dragging when walking. Additionally, she reports right-sided neck pain radiating into the shoulder, with occasional tingling down the anterior aspects of the arms into the hands, right greater than left. She notes worsening dexterity and balance issues, and has been using a cane for the past few months. She denies any falls. She has not undergone any conservative treatment for her back pain. She was on prednisone for 2-3 months for lung issues, but has recently completed the course. She has not participated in physical therapy or pain management. She is currently on Eliquis twice daily for atrial fibrillation, diagnosed in January, and underwent ablation in July. She also has a history of diabetes, with the most recent hemoglobin A1c reported to be 7 in October. She denies taking baby aspirin. Major Risk Factors Obesity Unknown Risk BMI: (No recent BMI available) High: BMI > 40 Moderate: BMI 30-40 Normal: BMI < 30 Diabetes Unknown Risk High: A1C > 8 Moderate: A1C 7-8 Normal: A1C < 7 Hx of DVT / PE normal High: dx of DVT / PE Normal: no dx of DVT / PE Smoking normal Last Status: Never High: Current smoker Normal: Non smoker Narcotics Use normal High:NarxCare >=300 Moderate: 100-299 Normal: 0-99 Depression Unknown Risk High: PHQ-9 >14 Moderate: PHQ-9 5-14 Normal: PHQ-9 < 5 Data from [facility] Epic on prior therapies: PREVIOUS CONSERVATIVE TREATMENT: -Medication: Flexeril, Prednisone (for 2-3 months for lungs and recently completed), Tylenol -Physical therapy: No recent participation. -Pain Management: No recent participation -Injections: Lumbar FELECIA 4-5 years ago- no relief. Unsure of level. PREVIOUS SPINE SURGERY: None Surgical Risk Factors: Smoking status: Denies Anticoagulants/antiplatelets: Eliquis bid for afib in January 2024, ablation in 07/2024 Diabetic: Yes, last hgba1c around 7 in October per patient Objective PHYSICAL EXAM BP (!) 113/49 (BP Site: Left Arm, BP Position: Sitting, BP Cuff Size: Regular Adult) Pulse 84 Resp 16 Wt 133 lb 6.1 oz (60.5 kg) SpO2 97% BMI 20.89 kg/m 5/5 motor strength in BUE and BLE except 3/5 right DF/EHL, 4/5 right PF, ambulates with cane SILT throughout extremities No UMN signs Results: NM BONE WHOLE BODY completed on 12/15/2022 at outside facility: FINDINGS: No evidence of osseous metastatic disease is identified. There is mild to moderate increased traceruptake within the cervical spine and right shoulder, likely degenerative etiology. More mild increased tracer uptake is noted within the left shoulder, thoracic and lumbar spine, wrists, hips, ankles, and feet. MRI of lumbar spine WO contrast from 09/11/2023: IMPRESSION: 1. At L3-4, there is a grade 1 spondylolisthesis. There is a small synovial cyst arising from the left medial facet joint. It compresses the left traversing L4 nerve root. There is multifactorial moderate to severe central canal stenosis. There is moderate to severebilateral foraminal stenosis. 2. At L4-5, there is a left paracentral disc protrusion compressing the left traversing L5 nerve root. There is moderate central canal stenosis. There is mild left foraminal stenosis. 2. At L5-S1, there is a small central disc protrusion indenting the thecal sac. There is mild left foraminal stenosis. Anatomic variant: None. L4-5 is considered the level of the iliac crest and assume there are 5 lumbar-type vertebrae. Assessment/Plan (M48.062) Lumbar stenosis with neurogenic claudication (primary encounter diagnosis) (M48.062) Spinal stenosis of lumbar region with neurogenic claudication (M48.02) Spinal stenosis of cervical region 1. Lumbar stenosis with neurogenic claudication (M48.062) Spinal stenosis of lumbar region with neurogenic claudication (M48.062) Chronic lumbar stenosis with neurogenic claudication, worsening over the past 2- 3 years. Previous MRI of the lumbar spine is over a year old. Symptoms include pain radiating into the right gluteal region, right leg, and foot, with paresthesia in bilateral feet (right greater than left). Urinary urgency is present, but no saddle anesthesia. Right leg symptoms worsen with walking, sitting, and lying down. Notable weakness in right dorsiflexion and AHL; patient exhibits foot drop. No conservative treatment has been pursued yet. - Ordered MRI of the lumbar spine to assess current status. - Obtain documentation of recent hemoglobin A1c levels. - Consult with [employer] regarding management of Eliquis perioperatively. - Follow-up appointment to discuss MRI results and potential surgical intervention. 2. Spinal stenosis of cervical region (M48.02) Suspected cervical spinal stenosis. Symptoms include right neck pain radiating into the shoulder, with occasional tingling down the anterior aspects of the arms into the hands (right greater than left). Worsening dexterity and imbalance issues, using a cane for ambulation. No falls reported. Symptoms may be positional, but cervical stenosis is a potential cause. - Ordered MRI of the cervical spine to evaluate for stenosis. - Follow-up appointment to discuss MRI results and potential treatment options. The following portions of the patient's history were reviewed, confirmed, and updated as necessary:allergies, current medications, past family history, past medical history, past social history, past surgical history, problem list, HPI, and ROS obtained by others.The following information can be found in electronic health record. Some elements may be copied from a previous office note and have been reviewed/updated where appropriate. All portions reflect current medical decision making from today. The clinical and radiographic findings as well as the risks, benefits and alternatives of treatmenthave been reviewed in detail with the patient. Advised to call the office if symptoms worsen or new symptoms develop.Patient expressed understanding and is in agreement with plan. Dominick Huggins MD Department of Orthopaedics [facility] Recording using Shareable Social software for draft documentation of the visit was discussed with the patient/authorized customer support representative; all questions welcomed and answered. Patient/authorized customer support representative agreed to proceed documented in this encounterSumma Health [facility]06-04-2025 NoteHNO ID: [id number] Author: DOMINICK HUGGINS MD Service: ? Author Type: Physician Type: Progress Notes Filed: 01/18/2025 09:30 Note Text: SPINE SURGERY ESTABLISHED PATIENT DATE OF SERVICE: 01/18/2025 Patient Name: Ms.Marie Kelsy Peters Date of : 1945 Current Age: [age] year old Sex: female Subjective Chief Complaint: History of Present Illness: Ms.Marie Kelsy Peters has a past medical history of diabetes mellitus type 2, INGA, HTN, HLD, bilateral malignant neoplasm of breast status post right-sided mastectomy in 1993 and left-sided mastectomy in 2010. Patient was last seen in the office on 09/16/2023 and reported a longstanding history of neck and low back pain for the last 5 years that had gradually worsened. Her neck pain radiated into right anterior shoulder with occasional tingling to bilateral hands. Denied dexterity issues but endorsed occasional imbalance issues, no falls. In regards to her low back, pain radiated into right gluteal region into occasional bilateral anterior thighs. Described as a burning sensation. She endorsed paresthesia to the bottom of her feet at night. Her leg pain was most bothersome and worsened with ambulation, relieved with sitting. She reported being able to walk for about 30 minutes until she needed to sit down. However, if she walked on concrete at grocery store she was able to walk for a shorter distance. She noted she had 1 episode of her entire right lower extremity and foot was numb for 1 day, self resolved. She had full strength noted on exam with slight difficulty with tandem gait. She wished to consider L3-5 Decompression but wanted to have her lung conditions improved prior. Rolando is a 80-year-old female with a history of back pain, presenting for evaluation of worsening back pain and associated symptoms. Rolando reports a 2-3 year history of back pain that has been gradually worsening. She was previously advised to consider a 3-5 decompression in August of last year, but deferred due to lung issues, including lung nodules, which are now improving. The back pain occasionally radiates into the right gluteal region and extends down the entire right leg and foot, accompanied by paresthesia in both feet, right greater than left. She also experiences urinary urgency but denies any saddle anesthesia. The right leg pain is exacerbated by walking and sometimes by sitting and lying down. She denies weakness in the right leg but reports weakness in right dorsiflexion and AHL, necessitating lifting her leg to prevent foot dragging when walking. Additionally, she reports right-sided neck pain radiating into the shoulder, with occasional tingling down the anterior aspects of the arms into the hands, right greater than left. She notes worsening dexterity and balance issues, and has been using a cane for the past few months. She denies any falls. She has not undergone any conservative treatment for her back pain. She was on prednisone for 2-3 months for lung issues, but has recently completed the course. She has not participated in physical therapy or pain management. She is currently on Eliquis twice daily for atrial fibrillation, diagnosed in January, and underwent ablation in July. She also has a history of diabetes, with the most recent hemoglobin A1c reported to be 7 in October. She denies taking baby aspirin. Major Risk Factors Obesity Unknown Risk BMI: (No recent BMI available) High: BMI > 40 Moderate: BMI 30-40 Normal: BMI < 30 Diabetes Unknown Risk High: A1C > 8 Moderate: A1C 7-8 Normal: A1C < 7 Hx of DVT / PE normal High: dx of DVT / PE Normal: no dx of DVT / PE Smoking normal Last Status: Never High: Current smoker Normal: Non smoker Narcotics Use normal High:NarxCare >=300 Moderate: 100-299 Normal: 0-99 Depression Unknown Risk High: PHQ-9 >14 Moderate: PHQ-9 5-14 Normal: PHQ-9 < 5 Data from [facility] Epic on prior therapies: PREVIOUS CONSERVATIVE TREATMENT: -Medication: Flexeril, Prednisone (for 2-3 months for lungs and recently completed), Tylenol -Physical therapy: No recent participation. -Pain Management: No recent participation -Injections: Lumbar FELECIA 4-5 years ago- no relief. Unsure of level. PREVIOUS SPINE SURGERY: None Surgical Risk Factors: Smoking status: Denies Anticoagulants/antiplatelets: Eliquis bid for afib in January 2024, ablation in 07/2024 Diabetic: Yes, last hgba1c around 7 in October per patient Objective PHYSICAL EXAM BP (!) 113/49 (BP Site: Left Arm, BP Position: Sitting, BP Cuff Size: Regular Adult) Pulse 84 Resp 16 Wt 133 lb 6.1 oz (60.5 kg) SpO2 97% BMI 20.89 kg/m? 5/5 motor strength in BUE and BLE except 3/5 right DF/EHL, 4/5 right PF, ambulates with cane SILT throughout extremities No UMN signs Results: NM BONE WHOLE BODY completed on 12/15/2022 at outside facility: FINDINGS: No evidence of osseous metastatic disease is identified. There is mild to moderate incr (more content not included)...[facility] 01-18-2025 History of Present illness Narrative* Kim Vera, RT(R) - 01/18/2025 8:15 AM EDT Radiology Service Progress Note PATIENT NAME: Rolando Peters DATE OF SERVICE: January 18, 2025 TIME: 8:31 AM PATIENT IDENTITY VERIFICATION COMPLETED USING TWO (2) IDENTIFIERS: Name and Date of confirmedby patient verbally. FALL SCREENING: Has the patient had 2 falls in the last year or 1 fall with injury or currently using an Ambulatory Assistive Device (Walker, Cane, Wheelchair, Crutches, etc.)? Yes, Patient High Riskfor Falls What interventions were put in place to prevent falls during this visit? Increased Observations by Caregivers PATIENT GENDER DATA: Assigned female at . status: : No status:NO. PATIENT RELEVANT IMPLANT DATA REVIEWED: Not Applicable PATIENT PRESENTS WITH AN IMPLANTABLE OR ATTACHED ASSISTANT PROFESSOR OF COMMUNICATION: na RADIOLOGY DEPARTMENT: General X-ray: Exam(s) Completed: Spine X-Ray(s): Scoliosis Series PERIPHERAL IV DATA: Not applicable SIGNED BY: MAYRA Zambrano) January 18, 2025 8:31 AM documented in this encounterSumma Health [facility]06-04-2025 NoteHNO ID: [id number] Author: KIM VERA RT(R) Service: Radiology Author Type: Technologist Type: Progress Notes Filed: 01/18/2025 08:31 Note Text: Radiology Service Progress Note PATIENT NAME: Rolando Peters DATE OF SERVICE: January 18, 2025 TIME: 8:31 AM PATIENT IDENTITY VERIFICATION COMPLETED USING TWO (2) IDENTIFIERS: Name and Date of confirmed by patient verbally. FALL SCREENING: Has the patient had 2 falls in the last year or 1 fall with injury or currently using an Ambulatory Assistive Device (Walker, Cane, Wheelchair, Crutches, etc.)? Yes, Patient High Risk for Falls What interventions were put in place to prevent falls during this visit? Increased Observations by Caregivers PATIENT GENDER DATA: Assigned female at . status: : No status: NO. PATIENT RELEVANT IMPLANT DATA REVIEWED: Not Applicable PATIENT PRESENTS WITH AN IMPLANTABLE OR ATTACHED ASSISTANT PROFESSOR OF COMMUNICATION: na RADIOLOGY DEPARTMENT: General X-ray: Exam(s) Completed: Spine X-Ray(s): Scoliosis Series PERIPHERAL IV DATA: Not applicable SIGNED BY: MAYRA Zambrano) January 18, 2025 8:31 [facility]06-03-2025 Hospital Discharge instructions* Discharge Instructions* Parrish Chaidez DO - 01/17/2025 2:52 PM EDT Follow-up with your primary care physician for repeat outpatient labs and management of your anemia. If you have worsening symptoms or if you have blood in your stools return to the ER. documented in this [facility]06-03-2025 Emergency department Note* Parrish Chaidez DO - 01/17/2025 11:38 AM EDT EMERGENCY DEPARTMENT ENCOUNTER Pt Name: Rolando Peters Birthdate 1945 Date of evaluation: 01/17/2025 ED Provider: Parrish Chaidez DO CHIEF COMPLAINT Chief Complaint Patient presents with Abnormal Lab Patient sent over from Dr. Al with a reported hgb of 6.1. Patient also reports 1 episode of blood in her stool a few days ago. Denies abd pain. HISTORY OF PRESENT ILLNESS (Location/Symptom, Timing/Onset, Context/Setting, Quality, Duration, Modifying Factors, Severity) Note limiting factors. I wore appropriate PPE for the entirety of this encounter. HPI Rolando Peters is a 80 y.o. who presents to the emergency department with chief complaint of abnormallabs. Patient reports she was seen by her PCP recently and had outpatient labs performed with a hemoglobin of 6.1. States that she has had anemia previously and had required a blood transfusion. She had a recent endoscopy and colonoscopy. Was found to have internal hemorrhoids. She is also anticoagulated on Eliquis due to atrial fibrillation. States that she is not experiencing any abdominal pain, weakness or syncope. Did have 1 episode of bloody stools on Thursday but is now having stools thatare more formed and of normal color. Nursing Notes were reviewed. Limitations to history: None Outside historians: None REVIEW OF SYSTEMS Review of Systems Pertinent positives and negatives as per HPI. PAST MEDICAL HISTORY Medical History[1] SURGICAL HISTORY Surgical History[2] CURRENT MEDICATIONS Current Discharge Medication List CONTINUE these medications which have NOT CHANGED Details albuterol (Ventolin HFA) 108 (90 Base) MCG/ACT inhaler Inhale 2 puffs every 4 hours as needed for wheezing or shortness of breath. Qty: 8 g, Refills: 11 Associated Diagnoses: Chronic obstructive pulmonary disease, unspecified COPD type ([facility]) amLODIPine (Norvasc) 2.5 MG tablet Take 1 tablet (2.5 mg) by mouth daily. Qty: 30 tablet, Refills: 1 Associated Diagnoses: Essential hypertension apixaban (Eliquis) 5 MG tablet Take 1 tablet (5 mg) by mouth 2 times daily. Qty: 180 tablet, Refills: 3 Associated Diagnoses: PAF (paroxysmal atrial fibrillation) ([facility]); On continuous oral anticoagulation carvedilol (Coreg) 12.5 MG tablet Take 1 tablet (12.5 mg) by mouth 2 times daily (with meals). Qty: 180 tablet, Refills: 3 cholecalciferol (Vitamin D-3) 50 MCG (2000 UT) tablet Take 4,000 Units by mouth daily. Contour Next Test test strip USE ONE strip TO test TWICE DAILY Cyanocobalamin (B-12) 1000 MCG capsule Take 1 tablet by mouth daily. ezetimibe (Zetia) 10 MG tablet Take 1 tablet (10 mg) by mouth daily. Qty: 90 tablet, Refills: 2 Comments: This prescription was filled on 07/01/2023. Any refills authorized will be placed on file. Associated Diagnoses: Dyslipidemia Finerenone (Kerendia) 10 MG tablet Take 1 tablet by mouth daily. fluticasone (Cutivate) 0.05 % cream Apply topically Daily as needed (itching). furosemide (Lasix) 20 MG tablet Take 1 tablet (20 mg) by mouth every other day. Qty: 15 tablet, Refills: 11 Associated Diagnoses: Heart failure with improved ejection fraction (HFimpEF) ([facility]) Icosapent Ethyl (Vascepa) 1 g capsule Take 2 capsules (2 g) by mouth 2 times daily (with meals). Qty: 360 capsule, Refills: 3 Jentadueto XR 2.5-1000 MG per 24 hr tablet take 2 tablets by mouth once daily losartan (Cozaar) 100 MG tablet Take 1 tablet (100 mg) by mouth daily. Qty: 90 tablet, Refills: 1 Associated Diagnoses: Essential hypertension Multiple Vitamins-Minerals (MULTIPLE VITAMINS/WOMENS PO) Take by mouth daily. pantoprazole (ProtoNix) 40 MG EC tablet Take 1 tablet (40 mg) by mouth 2 times daily for 30 days, THEN 1 tablet (40 mg) every morning (before breakfast). Do not crush, chew, or split.. Qty: 120 tablet, Refills: 0 predniSONE (Deltasone) 20 MG tablet TAKE THREE TABLETS BY MOUTH DAILY FOR FOURTEEN DAYS, THEN taperdown TO TWO & ONE-HALF TABLETS DAILY FOR FOURTEEN DAYS, AND finally TWO TABLETS DAILY UNTIL FOLLOWING UP rosuvastatin (Crestor) 10 MG tablet daily. sertraline (Zoloft) 25 MG tablet Take 1 tablet (25 mg) by mouth daily. Qty: 90 tablet, Refills: 0 tiotropium (Spiriva Respimat) 2.5 MCG/ACT inhaler Inhale 2 puffs daily. Qty: 1 each, Refills: 11 Associated Diagnoses: Pulmonary emphysema, unspecified emphysema type (HCC) ALLERGIES Isosulfan blue, Methylene blue, and Sulfa antibiotics FAMILY HISTORY Family History[3] SOCIAL HISTORY Social History[4] SCREENINGS PHYSICAL EXAM ED Triage Vitals [01/17/25 1140] Temp Heart Rate Resp BP 36.4 C (97.6 F) 82 18 (!) 104/37 SpO2 Temp Source Heart Rate Source Patient Position 95 % Temporal Monitor Sitting BP Location FiO2 (%) Left arm -- Physical Exam Vitals and nursing note reviewed. Constitutional: General: She is not in acute distress. Appearance: She is well-developed. She is not ill-appearing or toxic-appearing. HENT: Head: Normocephalic and atraumatic. Nose: Nose normal. Eyes: Comments: Conjunctiva pale Cardiovascular: Rate and Rhythm: Normal rate and regular rhythm. Pulses: Normal pulses. Heart sounds: Normal heart sounds. Pulmonary: Effort: Pulmonary effort is normal. No respiratory distress. Breath sounds: Normal breath sounds. Abdominal: General: There is no distension. Palpations: Abdomen is soft. Tenderness: There is no abdominal tenderness. Musculoskeletal: General: Normal range of motion. Cervical back: Normal range of motion and neck supple. Skin: General: Skin is warm and dry. Capillary Refill: Capillary refill takes less than 2 seconds. Neurological: General: No focal deficit present. Mental Status: She is alert. Mental status is at baseline. DIAGNOSTIC RESULTS Procedures/EKG: EKG was reviewed by myself. Physician EKG interpretation can be found in [facility] RADIOLOGY (Per Emergency Physician): Interpretation per the Radiologist below, if available at the time of this note: No orders to display ED BEDSIDE ULTRASOUND: Performed by ED Physician - none LABS: Labs Reviewed CBC (HEMOGRAM) - Abnormal Result Value Auto WBC 6.4 RBC 2.41 (*) Hemoglobin 6.0 (*) Hematocrit 20.3 (*) MCV 84.2 MCH 24.9 (*) MCHC 29.6 (*) RDW 14.9 Platelets 261 MPV 8.8 (*) BLOOD TYPE AND SCREEN GEL ABO Grouping O Antibody Screen NEG Rh Type POS HEMOGLOBIN AND HEMATOCRIT, BLOOD PREPARE RBC PRODUCT CODE Q4357G07 Unit Number [id number] Unit ABO O Unit RH POS Crossmatch interpretation COMP Dispense Status Crossmatch Blood Expiration Date Product Blood Type 5100 Unit Volume 300 PRODUCT CODE [id number] Unit Number [id number] Unit ABO O Unit RH POS Crossmatch interpretation COMP Dispense Status Transfused Blood Expiration Date Product Blood Type 5100 Unit Volume 300 All other labs were within normal range or not returned as of this dictation. EMERGENCY DEPARTMENT COURSE and DIFFERENTIAL DIAGNOSIS/MDM: Vitals: Vitals: 01/17/25 1140 01/17/25 1303 01/17/25 1420 01/17/25 1439 BP: (!) 104/37 (!) 145/46 (!) 142/43 (!) 104/45 BP Location: Left arm Left arm Patient Position: Sitting Lying Pulse: 82 61 66 72 Resp: 18 16 15 16 Temp: 36.4 C (97.6 F) 36.5 C (97.7 F) 36.6 C (97.8 F) TempSrc: Temporal SpO2: 95% 94% 100% 100% Weight: Diagnoses as of 01/17/25 1501 Anemia, unspecified type The patient presented with chief complaint of anemia. The differential diagnosis associated with this patient's presentation includes iron deficiency anemia, blood loss anemia, GI bleeding. Our workup consisted of ordering/reviewing: Labs and blood transfusion. Patient is in agreement with this plan. Medications sodium chloride 0.9 % infusion (has no administration in time range) REVAL: Well-appearing 80-year-old female presenting to the ED for anemia found on outpatient labs. Patient's vitals are stable and she does not have any signs of bleeding currently. No abdominal tenderness on exam. Her repeat labs today show hemoglobin of 6. She was consented for 2 units of PRBCs. I discussed disposition with the patient. We discussed admission for monitoring given that she is on anticoagulation however she has also recently had endoscopy and colonoscopy that showed internal hemorrhoids and this is likely the source of her bleeding given that she is on anticoagulation. She understands that she is high risk for recurrent bleeding however would prefer to be discharged home. Given that she is not actively bleeding at this time and she is hemodynamically stable I believe this is appropriate as she is able to have close outpatient follow-up with her PCP and has already had a GI evaluation. She will return to the ER for worsening symptoms. CRITICAL CARE TIME Total Critical Care time was 32 minutes, excluding separately reportable procedures. There was a high probability of clinically significant/life threatening deterioration in the patient's condition which required my urgent intervention. CONSULTS: None PROCEDURES: Unless otherwise noted below, none Procedures Patients symptoms are consistent with sepsis, severe sepsis, or septic shock (If yes use .sepsiscoremeasure): FINAL IMPRESSION 1. Anemia, unspecified type DISPOSITION Discharge 01/17/2025 02:52:11 PM PATIENT REFERRED TO: Celia Al DO [address] [facility] [place] Service [address] [facility] [id number] DISCHARGE MEDICATIONS: Current Discharge Medication List (Comment: Please note this report has been produced using speech recognition software and may contain errors related to that system including errors in grammar, punctuation, and spelling, as well as words and phrases that may be inappropriate. If there are any questions or concerns please feel freeto contact the dictating provider for clarification.) Parrish Chaidez DO (electronically signed) Emergency Medicine Provider [1] Past Medical History: Diagnosis Date Arrhythmia Arthritis Asthma Breast cancer (HCC) 1993 Right Breast(Mastectomy) Breast cancer (HCC) 2010 Left Breast(Simple Mastectomy, SLND) Chronic kidney disease COPD (chronic obstructive pulmonary disease) (HCC) Coronary artery disease Diabetes (HCC) Emphysema of lung (HCC) Within last year GERD (gastroesophageal reflux disease) High blood pressure Lung nodule -2022 Occlusion and stenosis of unspecified carotid artery Pure hypercholesterolemia Syncope and collapse 08/29/2022 [2] Past Surgical History: Procedure Laterality Date BREAST LUMPECTOMY BRONCHOSCOPY CARDIAC ELECTROPHYSIOLOGY PROCEDURE N/A 05/05/2024 Performed by Walt Leigh MD at [facility] Cardiac Cath/EP Lab CAROTID ENDARTERECTOMY Right 2009 CATARACT EXTRACTION Bilateral 2006 CHEST TUBE INSERTION Right 10/05/2023 ENDOBRONCHIAL ULTRASOUND EBUS (HISTORICAL) 10/05/2023 LUNG BIOPSY MASTECTOMY Left 2010 simple/reconstruction/gingivagrapht MASTECTOMY Right 1993 reconstruction (TRAM) TOTAL ABDOMINAL HYSTERECTOMY W/ BILATERAL SALPINGOOPHORECTOMY 1998 TUBAL LIGATION 1978 [3] Family History Problem Relation Name Age of Onset Ovarian cancer Mother Alia 66 Heart attack Father Lucita (Mother) 76 High Blood Pressure Father Lucita (Mother) Macular degeneration Father Lucita (Mother) Cancer Father Lucita (Mother) Ovarian cancer Mother's Sister 45 Other ([id number]) Son neuofibromatosis, BRCA1 positive Neurofibromatosis Son High Blood Pressure Son Cancer Son hairy cell leukemia Breast cancer Cousin 42 +brca Bladder Cancer Cousin 19 Hypertension Sister Angie Kidney disease Sister Angie Hypertension Sister Mireya Sister Kidney disease Sister Mireya Sister [4] Social History Socioeconomic History Marital status: Tobacco Use Smoking status: Former Current packs/day: 0.00 Average packs/day: 1 pack/day for 30.0 years (30.0 ttl pk-yrs) Types: Cigarettes Start date: 08/17/1963 Quit date: 08/17/1993 Years since quittin.4 Smokeless tobacco: Never 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: , 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[facility], 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, 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 Vaping Use Vaping status: Never Used Substance and Sexual Activity Alcohol use: Yes Alcohol/week: 2.0 - 16.0 standard drinks of alcohol Types: 2 Glasses of wine per week Comment: occ Drug use: No Comment: caffeine use: 1 cup of coffee a day Sexual activity: Not Currently Partners: Male control/protection: Other Social Drivers of Health Financial Resource Strain: Low Risk (11/09/2024) Overall Financial Resource Strain (CARDIA) Difficulty of Paying Living Expenses: Not very hard Food Insecurity: No Food Insecurity (11/09/2024) Hunger Vital Sign Worried About Running Out of Food in the Last Year: Never true Ran Out of Food in the Last Year: Never true Transportation Needs: No Transportation Needs (11/09/2024) PRAPARE - Transportation Lack of Transportation (Medical): No Lack of Transportation (Non-Medical): No Physical Activity: Inactive (11/09/2024) Exercise Vital Sign Days of Exercise per Week: 0 days Minutes of Exercise per Session: 0 min Stress: Stress Concern Present (11/09/2024) [employer] - Occupational Stress Questionnaire Feeling of Stress : To some extent Social Connections: Socially Integrated (11/09/2024) Social Connection and Isolation Panel [NHANES] Frequency of Communication with Friends and Family: More than three times a week Frequency of Social Gatherings with Friends and Family: Once a week Attends Yarsanism Services: More than 4 times per year Active Member of Clubs or Organizations: Yes Attends Club or Organization Meetings: 1 to 4 times per year Marital Status: Intimate Partner Violence: Not At Risk (11/09/2024) Humiliation, Afraid, Rape, and Kick questionnaire Fear of Current or Ex-Partner: No Emotionally Abused: No Physically Abused: No Sexually Abused: No Housing Stability: Low Risk (11/09/2024) Housing Stability Vital Sign Unable to Pay for Housing in the Last Year: No Number of Times Moved in the Last Year: 0 Homeless in the Last Year: No Parrish Chaidez DO 01/17/25 1506 * Lore Molina DO - 01/17/2025 11:38 AM EDT Emergency Department Encounter Location: [facility] ED Patient: Rolando Peters : 1945 Date of evaluation: 01/17/2025 ED Provider: Lore Molina DO Time received sign-out: 1500 Rolando Peters was checked out to me by Dr. Parrish Chaidez. Please see his/her initial documentation fordetails of the patient's initial ED presentation, physical exam and completed studies. In brief, Rolando Peters is a 80 y.o. adult that presented to the emergency department with low hemoglobin. I have reviewed and interpreted all of the currently available lab results and diagnostics from this visit: Results for orders placed or performed during the hospital encounter of 01/17/25 CBC Collection Time: 01/17/25 1:13 PM Result Value Ref Range Auto WBC 6.4 3.6 - 10.7 10*3/uL RBC 2.41 (L) 3.80 - 5.20 10*6/uL Hemoglobin 6.0 (LL) 11.7 - 16.0 g/dL Hematocrit 20.3 (L) 35.0 - 47.0 % MCV 84.2 77.0 - 99.0 fL MCH 24.9 (L) 26.0 - 34.0 pg MCHC 29.6 (L) 30.5 - 36.0 % RDW 14.9 11.5 - 15.0 % Platelets 261 140 - 440 10*3/uL MPV 8.8 (L) 9.0 - 12.7 fL Type and screen Collection Time: 01/17/25 1:13 PM Result Value Ref Range ABO Grouping O Antibody Screen NEG Rh Type POS Prepare RBC: 2 Units Collection Time: 01/17/25 4:56 PM Result Value Ref Range PRODUCT CODE [id number] Unit Number [id number] Unit ABO O Unit RH POS Crossmatch interpretation COMP Dispense Status Transfused Blood Expiration Date Product Blood Type 5100 Unit Volume 300 mL PRODUCT CODE [id number] Unit Number [id number] Unit ABO O Unit RH POS Crossmatch interpretation COMP Dispense Status Transfused Blood Expiration Date Product Blood Type 5100 Unit Volume 300 mL Hemoglobin and hematocrit, blood Collection Time: 01/17/25 7:36 PM Result Value Ref Range Hemoglobin 8.8 (L) 11.7 - 16.0 g/dL Hematocrit 28.2 (L) 35.0 - 47.0 % No orders to display Final ED Course and MDM: Rolando Peters is a 80 y.o. whose care was signed out to me by the outgoing provider. In brief, patient presented with low hemoglobin. Given 2 units here with repeat hemoglobin of 8.8. Patient without any bleeding on my reevaluation. Says that she is feeling better. Plan to discharge home to follow-up with GI. Strict return precautions discussed and patient discharged in stable condition. Medications sodium chloride 0.9 % infusion (has no administration in time range) Final Impression 1. Anemia, unspecified type DISPOSITION Discharge 01/17/2025 02:52:11 PM (Please note that portions of this note may have been completed with a voice recognition program. Efforts were made to edit the dictations but occasionally words are mis-transcribed.) Lore Molina DO [employer] Lore Molina DO 01/17/25 1950 documented in this [facility]06-03-2025 Physician Emergency department Note* Parrish Chaidez DO - 01/17/2025 11:38 AM EDT EMERGENCY DEPARTMENT ENCOUNTER Pt Name: Rolando Peters Birthdate 1945 Date of evaluation: 01/17/2025 ED Provider: Parrish Chaidez DO CHIEF COMPLAINT Chief Complaint Patient presents with Abnormal Lab Patient sent over from Dr. Al with a reported hgb of 6.1. Patient also reports 1 episode of blood in her stool a few days ago. Denies abd pain. HISTORY OF PRESENT ILLNESS (Location/Symptom, Timing/Onset, Context/Setting, Quality, Duration, Modifying Factors, Severity) Note limiting factors. I wore appropriate PPE for the entirety of this encounter. HPI Rolando Peters is a 80 y.o. who presents to the emergency department with chief complaint of abnormallabs. Patient reports she was seen by her PCP recently and had outpatient labs performed with a hemoglobin of 6.1. States that she has had anemia previously and had required a blood transfusion. She had a recent endoscopy and colonoscopy. Was found to have internal hemorrhoids. She is also anticoagulated on Eliquis due to atrial fibrillation. States that she is not experiencing any abdominal pain, weakness or syncope. Did have 1 episode of bloody stools on Thursday but is now having stools thatare more formed and of normal color. Nursing Notes were reviewed. Limitations to history: None Outside historians: None REVIEW OF SYSTEMS Review of Systems Pertinent positives and negatives as per HPI. PAST MEDICAL HISTORY Medical History[1] SURGICAL HISTORY Surgical History[2] CURRENT MEDICATIONS Current Discharge Medication List CONTINUE these medications which have NOT CHANGED Details albuterol (Ventolin HFA) 108 (90 Base) MCG/ACT inhaler Inhale 2 puffs every 4 hours as needed for wheezing or shortness of breath. Qty: 8 g, Refills: 11 Associated Diagnoses: Chronic obstructive pulmonary disease, unspecified COPD type ([facility]) amLODIPine (Norvasc) 2.5 MG tablet Take 1 tablet (2.5 mg) by mouth daily. Qty: 30 tablet, Refills: 1 Associated Diagnoses: Essential hypertension apixaban (Eliquis) 5 MG tablet Take 1 tablet (5 mg) by mouth 2 times daily. Qty: 180 tablet, Refills: 3 Associated Diagnoses: PAF (paroxysmal atrial fibrillation) ([facility]); On continuous oral anticoagulation carvedilol (Coreg) 12.5 MG tablet Take 1 tablet (12.5 mg) by mouth 2 times daily (with meals). Qty: 180 tablet, Refills: 3 cholecalciferol (Vitamin D-3) 50 MCG (2000 UT) tablet Take 4,000 Units by mouth daily. Contour Next Test test strip USE ONE strip TO test TWICE DAILY Cyanocobalamin (B-12) 1000 MCG capsule Take 1 tablet by mouth daily. ezetimibe (Zetia) 10 MG tablet Take 1 tablet (10 mg) by mouth daily. Qty: 90 tablet, Refills: 2 Comments: This prescription was filled on 07/01/2023. Any refills authorized will be placed on file. Associated Diagnoses: Dyslipidemia Finerenone (Kerendia) 10 MG tablet Take 1 tablet by mouth daily. fluticasone (Cutivate) 0.05 % cream Apply topically Daily as needed (itching). furosemide (Lasix) 20 MG tablet Take 1 tablet (20 mg) by mouth every other day. Qty: 15 tablet, Refills: 11 Associated Diagnoses: Heart failure with improved ejection fraction (HFimpEF) ([facility]) Icosapent Ethyl (Vascepa) 1 g capsule Take 2 capsules (2 g) by mouth 2 times daily (with meals). Qty: 360 capsule, Refills: 3 Jentadueto XR 2.5-1000 MG per 24 hr tablet take 2 tablets by mouth once daily losartan (Cozaar) 100 MG tablet Take 1 tablet (100 mg) by mouth daily. Qty: 90 tablet, Refills: 1 Associated Diagnoses: Essential hypertension Multiple Vitamins-Minerals (MULTIPLE VITAMINS/WOMENS PO) Take by mouth daily. pantoprazole (ProtoNix) 40 MG EC tablet Take 1 tablet (40 mg) by mouth 2 times daily for 30 days, THEN 1 tablet (40 mg) every morning (before breakfast). Do not crush, chew, or split.. Qty: 120 tablet, Refills: 0 predniSONE (Deltasone) 20 MG tablet TAKE THREE TABLETS BY MOUTH DAILY FOR FOURTEEN DAYS, THEN taperdown TO TWO & ONE-HALF TABLETS DAILY FOR FOURTEEN DAYS, AND finally TWO TABLETS DAILY UNTIL FOLLOWING UP rosuvastatin (Crestor) 10 MG tablet daily. sertraline (Zoloft) 25 MG tablet Take 1 tablet (25 mg) by mouth daily. Qty: 90 tablet, Refills: 0 tiotropium (Spiriva Respimat) 2.5 MCG/ACT inhaler Inhale 2 puffs daily. Qty: 1 each, Refills: 11 Associated Diagnoses: Pulmonary emphysema, unspecified emphysema type (HCC) ALLERGIES Isosulfan blue, Methylene blue, and Sulfa antibiotics FAMILY HISTORY Family History[3] SOCIAL HISTORY Social History[4] SCREENINGS PHYSICAL EXAM ED Triage Vitals [01/17/25 1140] Temp Heart Rate Resp BP 36.4 C (97.6 F) 82 18 (!) 104/37 SpO2 Temp Source Heart Rate Source Patient Position 95 % Temporal Monitor Sitting BP Location FiO2 (%) Left arm -- Physical Exam Vitals and nursing note reviewed. Constitutional: General: She is not in acute distress. Appearance: She is well-developed. She is not ill-appearing or toxic-appearing. HENT: Head: Normocephalic and atraumatic. Nose: Nose normal. Eyes: Comments: Conjunctiva pale Cardiovascular: Rate and Rhythm: Normal rate and regular rhythm. Pulses: Normal pulses. Heart sounds: Normal heart sounds. Pulmonary: Effort: Pulmonary effort is normal. No respiratory distress. Breath sounds: Normal breath sounds. Abdominal: General: There is no distension. Palpations: Abdomen is soft. Tenderness: There is no abdominal tenderness. Musculoskeletal: General: Normal range of motion. Cervical back: Normal range of motion and neck supple. Skin: General: Skin is warm and dry. Capillary Refill: Capillary refill takes less than 2 seconds. Neurological: General: No focal deficit present. Mental Status: She is alert. Mental status is at baseline. DIAGNOSTIC RESULTS Procedures/EKG: EKG was reviewed by myself. Physician EKG interpretation can be found in [facility] RADIOLOGY (Per Emergency Physician): Interpretation per the Radiologist below, if available at the time of this note: No orders to display ED BEDSIDE ULTRASOUND: Performed by ED Physician - none LABS: Labs Reviewed CBC (HEMOGRAM) - Abnormal Result Value Auto WBC 6.4 RBC 2.41 (*) Hemoglobin 6.0 (*) Hematocrit 20.3 (*) MCV 84.2 MCH 24.9 (*) MCHC 29.6 (*) RDW 14.9 Platelets 261 MPV 8.8 (*) BLOOD TYPE AND SCREEN GEL ABO Grouping O Antibody Screen NEG Rh Type POS HEMOGLOBIN AND HEMATOCRIT, BLOOD PREPARE RBC PRODUCT CODE [id number] Unit Number [id number] Unit ABO O Unit RH POS Crossmatch interpretation COMP Dispense Status Crossmatch Blood Expiration Date Product Blood Type 5100 Unit Volume 300 PRODUCT CODE [id number] Unit Number [id number] Unit ABO O Unit RH POS Crossmatch interpretation COMP Dispense Status Transfused Blood Expiration Date Product Blood Type 5100 Unit Volume 300 All other labs were within normal range or not returned as of this dictation. EMERGENCY DEPARTMENT COURSE and DIFFERENTIAL DIAGNOSIS/MDM: Vitals: Vitals: 01/17/25 1140 01/17/25 1303 01/17/25 1420 01/17/25 1439 BP: (!) 104/37 (!) 145/46 (!) 142/43 (!) 104/45 BP Location: Left arm Left arm Patient Position: Sitting Lying Pulse: 82 61 66 72 Resp: 18 16 15 16 Temp: 36.4 C (97.6 F) 36.5 C (97.7 F) 36.6 C (97.8 F) TempSrc: Temporal SpO2: 95% 94% 100% 100% Weight: Diagnoses as of 01/17/25 1501 Anemia, unspecified type The patient presented with chief complaint of anemia. The differential diagnosis associated with this patient's presentation includes iron deficiency anemia, blood loss anemia, GI bleeding. Our workup consisted of ordering/reviewing: Labs and blood transfusion. Patient is in agreement with this plan. Medications sodium chloride 0.9 % infusion (has no administration in time range) REVAL: Well-appearing 80-year-old female presenting to the ED for anemia found on outpatient labs. Patient's vitals are stable and she does not have any signs of bleeding currently. No abdominal tenderness on exam. Her repeat labs today show hemoglobin of 6. She was consented for 2 units of PRBCs. I discussed disposition with the patient. We discussed admission for monitoring given that she is on anticoagulation however she has also recently had endoscopy and colonoscopy that showed internal hemorrhoids and this is likely the source of her bleeding given that she is on anticoagulation. She understands that she is high risk for recurrent bleeding however would prefer to be discharged home. Given that she is not actively bleeding at this time and she is hemodynamically stable I believe this is appropriate as she is able to have close outpatient follow-up with her PCP and has already had a GI evaluation. She will return to the ER for worsening symptoms. CRITICAL CARE TIME Total Critical Care time was 32 minutes, excluding separately reportable procedures. There was a high probability of clinically significant/life threatening deterioration in the patient's condition which required my urgent intervention. CONSULTS: None PROCEDURES: Unless otherwise noted below, none Procedures Patients symptoms are consistent with sepsis, severe sepsis, or septic shock (If yes use .sepsiscoremeasure): FINAL IMPRESSION 1. Anemia, unspecified type DISPOSITION Discharge 01/17/2025 02:52:11 PM PATIENT REFERRED TO: Celia Al DO [address] [facility] [place] [facility] [address] [facility] [address] DISCHARGE MEDICATIONS: Current Discharge Medication List (Comment: Please note this report has been produced using speech recognition software and may contain errors related to that system including errors in grammar, punctuation, and spelling, as well as words and phrases that may be inappropriate. If there are any questions or concerns please feel freeto contact the dictating provider for clarification.) Parrish Chaidez DO (electronically signed) Emergency Medicine Provider [1] Past Medical History: Diagnosis Date Arrhythmia Arthritis Asthma Breast cancer (HCC) 1993 Right Breast(Mastectomy) Breast cancer (HCC) 2010 Left Breast(Simple Mastectomy, SLND) Chronic kidney disease COPD (chronic obstructive pulmonary disease) (HCC) Coronary artery disease Diabetes (HCC) Emphysema of lung (HCC) Within last year GERD (gastroesophageal reflux disease) High blood pressure Lung nodule Occlusion and stenosis of unspecified carotid artery Pure hypercholesterolemia Syncope and collapse 08/29/2022 [2] Past Surgical History: Procedure Laterality Date BREAST LUMPECTOMY BRONCHOSCOPY CARDIAC ELECTROPHYSIOLOGY PROCEDURE N/A 05/05/2024 Performed by Walt Leigh MD at [facility] Cardiac Cath/EP Lab CAROTID ENDARTERECTOMY Right 2009 CATARACT EXTRACTION Bilateral 2006 CHEST TUBE INSERTION Right 10/05/2023 ENDOBRONCHIAL ULTRASOUND EBUS (HISTORICAL) 10/05/2023 LUNG BIOPSY MASTECTOMY Left 2010 simple/reconstruction/gingivagrapht MASTECTOMY Right 1993 reconstruction (TRAM) TOTAL ABDOMINAL HYSTERECTOMY W/ BILATERAL SALPINGOOPHORECTOMY 1998 TUBAL LIGATION 1978 [3] Family History Problem Relation Name Age of Onset Ovarian cancer Mother Alia 66 Heart attack Father Lucita (Mother) 76 High Blood Pressure Father Lucita (Mother) Macular degeneration Father Lucita (Mother) Cancer Father Lucita (Mother) Ovarian cancer Mother's Sister 45 Other ([id number]) Son neuofibromatosis, BRCA1 positive Neurofibromatosis Son High Blood Pressure Son Cancer Son hairy cell leukemia Breast cancer Cousin 42 +brca Bladder Cancer Cousin 19 Hypertension Sister Angie Kidney disease Sister Angie Hypertension Sister Mireya Sister Kidney disease Sister Mireya Sister [4] Social History Socioeconomic History Marital status: Tobacco Use Smoking status: Former Current packs/day: 0.00 Average packs/day: 1 pack/day for 30.0 years (30.0 ttl pk-yrs) Types: Cigarettes Start date: 08/17/1963 Quit date: 08/17/1993 Years since quittin.4 Smokeless tobacco: Never 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: , 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[facility], 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, 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 Vaping Use Vaping status: Never Used Substance and Sexual Activity Alcohol use: Yes Alcohol/week: 2.0 - 16.0 standard drinks of alcohol Types: 2 Glasses of wine per week Comment: occ Drug use: No Comment: caffeine use: 1 cup of coffee a day Sexual activity: Not Currently Partners: Male control/protection: Other Social Drivers of Health Financial Resource Strain: Low Risk (11/09/2024) Overall Financial Resource Strain (CARDIA) Difficulty of Paying Living Expenses: Not very hard Food Insecurity: No Food Insecurity (11/09/2024) Hunger Vital Sign Worried About Running Out of Food in the Last Year: Never true Ran Out of Food in the Last Year: Never true Transportation Needs: No Transportation Needs (11/09/2024) PRAPARE - Transportation Lack of Transportation (Medical): No Lack of Transportation (Non-Medical): No Physical Activity: Inactive (11/09/2024) Exercise Vital Sign Days of Exercise per Week: 0 days Minutes of Exercise per Session: 0 min Stress: Stress Concern Present (11/09/2024) [employer] - Occupational Stress Questionnaire Feeling of Stress : To some extent Social Connections: Socially Integrated (11/09/2024) Social Connection and Isolation Panel [NHANES] Frequency of Communication with Friends and Family: More than three times a week Frequency of Social Gatherings with Friends and Family: Once a week Attends Yarsanism Services: More than 4 times per year Active Member of Clubs or Organizations: Yes Attends Club or Organization Meetings: 1 to 4 times per year Marital Status: Intimate Partner Violence: Not At Risk (11/09/2024) Humiliation, Afraid, Rape, and Kick questionnaire Fear of Current or Ex-Partner: No Emotionally Abused: No Physically Abused: No Sexually Abused: No Housing Stability: Low Risk (11/09/2024) Housing Stability Vital Sign Unable to Pay for Housing in the Last Year: No Number of Times Moved in the Last Year: 0 Homeless in the Last Year: No Parrish Chaidez DO 01/17/25 1506 [id number] Emergency department Note* Lore Gómez DO - 01/17/2025 11:38 AM EDT Emergency Department Encounter Location: [facility] ED Patient: Rolando Peters : 1945 Date of evaluation: 01/17/2025 ED Provider: Lore Molina DO Time received sign-out: 1500 Rolando Peters was checked out to me by Dr. Parrish Chaidez. Please see his/her initial documentation fordetails of the patient's initial ED presentation, physical exam and completed studies. In brief, Rolando Peters is a 80 y.o. adult that presented to the emergency department with low hemoglobin. I have reviewed and interpreted all of the currently available lab results and diagnostics from this visit: Results for orders placed or performed during the hospital encounter of 01/17/25 CBC Collection Time: 01/17/25 1:13 PM Result Value Ref Range Auto WBC 6.4 3.6 - 10.7 10*3/uL RBC 2.41 (L) 3.80 - 5.20 10*6/uL Hemoglobin 6.0 (LL) 11.7 - 16.0 g/dL Hematocrit 20.3 (L) 35.0 - 47.0 % MCV 84.2 77.0 - 99.0 fL MCH 24.9 (L) 26.0 - 34.0 pg MCHC 29.6 (L) 30.5 - 36.0 % RDW 14.9 11.5 - 15.0 % Platelets 261 140 - 440 10*3/uL MPV 8.8 (L) 9.0 - 12.7 fL Type and screen Collection Time: 01/17/25 1:13 PM Result Value Ref Range ABO Grouping O Antibody Screen NEG Rh Type POS Prepare RBC: 2 Units Collection Time: 01/17/25 4:56 PM Result Value Ref Range PRODUCT CODE [id number] Unit Number [id number] Unit ABO O Unit RH POS Crossmatch interpretation COMP Dispense Status Transfused Blood Expiration Date Product Blood Type 5100 Unit Volume 300 mL PRODUCT CODE [id number] Unit Number [id number] Unit ABO O Unit RH POS Crossmatch interpretation COMP Dispense Status Transfused Blood Expiration Date [id number] Product Blood Type 5100 Unit Volume 300 mL Hemoglobin and hematocrit, blood Collection Time: 01/17/25 7:36 PM Result Value Ref Range Hemoglobin 8.8 (L) 11.7 - 16.0 g/dL Hematocrit 28.2 (L) 35.0 - 47.0 % No orders to display Final ED Course and MDM: Rolando Peters is a 80 y.o. whose care was signed out to me by the outgoing provider. In brief, patient presented with low hemoglobin. Given 2 units here with repeat hemoglobin of 8.8. Patient without any bleeding on my reevaluation. Says that she is feeling better. Plan to discharge home to follow-up with GI. Strict return precautions discussed and patient discharged in stable condition. Medications sodium chloride 0.9 % infusion (has no administration in time range) Final Impression 1. Anemia, unspecified type DISPOSITION Discharge 01/17/2025 02:52:11 PM (Please note that portions of this note may have been completed with a voice recognition program. Efforts were made to edit the dictations but occasionally words are mis-transcribed.) Lore Molina DO [employer] Lore Molina DO 01/17/251949 [facility] [employer] Work Phone: [phone] [id number] Nurse Note* Mariela Stone RN - 01/12/2025 11:19 AM EDT Spoke with pt, arriving a 11:15 am on Thursday. No caffeine, decaf or chocolate x 12 hours. NPO x 4 hours. Bring a lunch with fat content. Test takes approx. 2.5 hours. [id number] Nurse Note* Mariela Stone RN - 01/12/2025 11:19 AM EDT Spoke with pt, arriving a 11:15 am on Thursday. No caffeine, decaf or chocolate x 12 hours. NPO x 4 hours. Bring a lunch with fat content. Test takes approx. 2.5 hours. documented in this [facility]05-14-2025 History of Present illness Narrative* Nickolas Pagan MD - 12/28/2024 2:15 PM EDT Images from the original note were not included. [facility]- PULMONARY AND SLEEP MEDICINE ESTABLISHED PATIENT VISIT CHIEF COMPLAINT/REASON FOR REFERRAL: Chief Complaint Patient presents with Sleep Apnea History of Present Illness: Rolando Peters is a 79 y.o. female with history of HF, transudative pleural effusion, A-fib s/p ablation, pulmonary hypertension, organizing pneumonia on prolonged prednisone taper, INGA, stage I triplenegative breast cancer s/p left mastectomy 05/2011, right-sided breast cancer s/p mastectomy 06/1994 s/p adjuvant chemo/tamoxifen. She has been previously followed in this clinic by Dr. Arana and was referred to de fora second opinion Initially referred for pulmonary nodules. RML and RLL nodular densities were biopsies in 09/2023 andresults were organizing pneumonia. Review of images shows small areas of consolidation. She was treated with prednisone. Since then she has had a couple of different episodes of dyspnea. Once found to have decompensated heart failure -- CTA chest 08/2024 with bilateral pleural effusions and interlobular septal thickening and pulm edema. Previous areas of organizing pneumonia not well seen on this study. CT chest 10/19/24 showed resolution of pleural effusions and resolution of prevoiusly biopsied areas of organizign pneumonia. Mild tree in bud opacities were present. 10/13/23 S/p ENB/EBUS 10/05/22. Procedure complicated by pneumothorax requiring chest tube. 12/04/23 Currently on prednisone 30mg until next week. Was started on Spiriva and noticed improvement of wheezing except on the day that she forgot to take it. 03/11/2024 Patient reported that she was hospitalized in January for A-fib with RVR and HFpEF exacerbation. Just completing her steroid taper. Now feeling improved from a respiratory standpoint. 08/19/24 Patient reported worsening respiratory symptoms including increased dyspnea on exertion and worsening nonproductive cough. Using albuterol more often, 2-3 times daily with her Spiriva. 09/07/24 Restarted on prednisone at last visit. Patient was hospitalized last week for worsening CRUZ and chest pain. Infectious evaluation was negative. S/p R thoracentesis with 450 ml transudative fluid. Discharged on daily lasix. Stated that her breathing is now back to baseline. 10/28/24 Feb with Flu A s/p Tamiflu. Last week with UTI s/p Keflex. Stopped prednisone 1 week ago per ER instructions. Had been on prednisone 40mg daily for many weeks as she was unsure about tapering. Admitted to fatigue. CRUZ much improved. Denied any SOB, cough, wheezing, chest tightness. Currently the patient is off prednisone. The last course of prednisone was started prednominantly due to dyspnea. OF note, the patient has had significant anemia over the last year - Hgb down to 6.6 in 10/2024. Hgb was 12.2 in 01/2024. Previous iron studies not typical of LOUISE. MCV has been normal butRDW has been high. B12 was low but has since been repleted. The patient also notes weight loss despite being on repeated courses of prendisone. Today she denies dyspnea, cough, wheezing, sputum, hemoptysis. Has upcoming lab draw to reassess anemia. Regarding INGA, PSG in 06/2024 showed very mild INGA. She has been adherent to autoCPAP [id number]. Previous device download showed good adherence and low residual AHI. Assessment and Plan: 1. Organizing pneumonia (CMS/HCC) (HCC) - now off prednisone and stable - continue monitoring off immunosuppression - Complete PFT with body plethysmography; Future 2. Chronic obstructive pulmonary disease, unspecified COPD type (HCC) (Primary) 3. Pulmonary emphysema, unspecified emphysema type (HCC) - moderate to severe obstruction on previous PFTs. Given the interim diagnosis and treatment of organizing pna, we will reassess with particular attention to TLC - continue current inhalers - Complete PFT with body plethysmography; Future 4. INGA (obstructive sleep apnea) - well treated. Continue autoCPAP [id number] Nickolas Pagan MD Pulmonary, Critical Care, and Sleep Medicine Portions of the information within this encounter were entered using an electronic dictation system. Best attempts were made to edit/proofread the information prior to note completion. Despite the review of information, some errors may remain. If there are questions related to the information contained within the note please contact the signing physician directly. PastMedical History Medical History[1] Past Surgical History Surgical History[2] Allergies Allergies[3] Medications Current Medications[4] Social History Social History Socioeconomic History Marital status: Spouse name: Not on file Number of children: Not on file Years of education: Not on file Highest education level: Not on file Occupational History Not on file Tobacco Use Smoking status: Former Current packs/day: 0.00 Average packs/day: 1 pack/day for 30.0 years (30.0 ttl pk-yrs) Types: Cigarettes Start date: 08/17/1963 Quit date: 08/17/1993 Years since quittin.3 Smokeless tobacco: Never 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: , 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[facility], 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, 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 Vaping Use Vaping status: Never Used Substance and Sexual Activity Alcohol use: Yes Alcohol/week: 2.0 - 16.0 standard drinks of alcohol Types: 2 Glasses of wine per week Comment: occ Drug use: No Comment: caffeine use: 1 cup of coffee a day Sexual activity: Not Currently Partners: Male control/protection: Other Other Topics Concern Not on file Social History Narrative Not on file Social Drivers of Health Financial Resource Strain: Low Risk (11/09/2024) Overall Financial Resource Strain (CARDIA) Difficulty of Paying Living Expenses: Not very hard Food Insecurity: No Food Insecurity (11/09/2024) Hunger Vital Sign Worried About Running Out of Food in the Last Year: Never true Ran Out of Food in the Last Year: Never true Transportation Needs: No Transportation Needs (11/09/2024) PRAPARE - Transportation Lack of Transportation (Medical): No Lack of Transportation (Non-Medical): No Physical Activity: Inactive (11/09/2024) Exercise Vital Sign Days of Exercise per Week: 0 days Minutes of Exercise per Session: 0 min Stress: Stress Concern Present (11/09/2024) [employer] - Occupational Stress Questionnaire Feeling of Stress : To some extent Social Connections: Socially Integrated (11/09/2024) Social Connection and Isolation Panel [NHANES] Frequency of Communication with Friends and Family: More than three times a week Frequency of Social Gatherings with Friends and Family: Once a week Attends Yarsanism Services: More than 4 times per year Active Member of Clubs or Organizations: Yes Attends Club or Organization Meetings: 1 to 4 times per year Marital Status: Intimate Partner Violence: Not At Risk (11/09/2024) Humiliation, Afraid, Rape, and Kick questionnaire Fear of Current or Ex-Partner: No Emotionally Abused: No Physically Abused: No Sexually Abused: No Housing Stability: Low Risk (11/09/2024) Housing Stability Vital Sign Unable to Pay for Housing in the Last Year: No Number of Times Moved in the Last Year: 0 Homeless in the Last Year: No FamilyHistory Family History[5] Review of Systems Review of Systems Constitutional: Negative for fatigue. Respiratory: Negative for cough, shortness of breath and wheezing. Cardiovascular: Negative for chest pain, palpitations and leg swelling. Psychiatric/Behavioral: Negative for sleep disturbance. Physical Exam Vitals: 12/28/24 1426 BP: (!) 143/56 Pulse: 56 SpO2: 97% Weight: 133 lb (60.3 kg) Height: 5' 7 (1.702 m) Physical Exam Constitutional: General: She is not in acute distress. HENT: Head: Normocephalic and atraumatic. Right Ear: External ear normal. Left Ear: External ear normal. Nose: No congestion or rhinorrhea. Mouth/Throat: Mouth: Mucous membranes are moist. Pharynx: Oropharynx is clear. No oropharyngeal exudate. Eyes: General: No scleral icterus. Right eye: No discharge. Left eye: No discharge. Conjunctiva/sclera: Conjunctivae normal. Cardiovascular: Rate and Rhythm: Normal rate and regular rhythm. Pulses: Normal pulses. Heart sounds: No murmur heard. Pulmonary: Effort: Pulmonary effort is normal. No respiratory distress. Breath sounds: Normal breath sounds. No stridor. No wheezing or rhonchi. Abdominal: General: There is no distension. Palpations: Abdomen is soft. Tenderness: There is no abdominal tenderness. Musculoskeletal: Right lower leg: No edema. Left lower leg: No edema. Lymphadenopathy: Cervical: No cervical adenopathy. Skin: General: Skin is warm and dry. Coloration: Skin is not jaundiced. Neurological: Mental Status: She is alert and oriented to person, place, and time. Mental status is at baseline. Psychiatric: Mood and Affect: Mood normal. Behavior: Behavior normal. Behavior is cooperative. LABS and Studies: Available studies were personally reviewed. Salient findings summarized in HPI & A/P Imaging: CXR portable: Results for orders placed during the hospital encounter of 11/08/24 XR chest 1 view Narrative [facility] Name[facility] 1945 [id number] Exam Date/Time: 11/08/2024 14:12 Procedure: XR CHEST 1 VIEW Ordering Provider: ALVARADO FELIX Reason For Exam: fatigue CHEST X-RAY AP CLINICAL INDICATION: Fatigue AP radiograph of the chest was obtained. COMPARISON: 10/21/2024 FINDINGS: The cardiac silhouette is within normal limits. 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 Surgical clips overlie the lower right chest wall. No focal consolidation or opacification is seen within the lungs. No pleural effusion or pneumothorax is identified. Degenerative changes of the thoracic spine are noted. Impression No acute cardiopulmonary process. Report Dictated on Electronically Signed By: Amanuel Rsoas MD Electronically Signed Date/Time: 11/08/2024 2:42 PM EDT CXR (2V): No results found for this or any previous visit. CT Chest: Results for orders placed during the hospital encounter of 10/19/24 CT chest wo IV contrast Narrative Patient Name: [facility] PETERS : 1945 [id number] Exam Date/Time: 10/19/2024 16:51 Procedure: CT CHEST WO IV CONTRAST Ordering Provider: ARANA CHELSEA Reason For Exam: Lung nodule, > 8mm EXAM: CT Chest Without Intravenous Contrast CLINICAL INDICATION: Lung nodule, > 8mm TECHNIQUE: Axial computed tomography images of the chest without intravenous contrast. This CT examwas performed using one or more of the following dose reduction techniques: automated exposure control, adjustment of the mA and/or kV according to patient size, and/or use of iterative reconstruction technique. COMPARISON: 08/26/2024 FINDINGS: LUNGS: Mild tree-in-bud and groundglass opacities are present within the right middle lobe. Tree-in-bud opacities are also present within the posterior right lower lobe. This area was obscured on theprior examination. Multiple nodular opacities within the anterior lingula show interval improvementcompared to the prior examination. Moderate upper lobe predominant centrilobular emphysematous changes. PLEURAL SPACE: Bilateral pleural effusions seen on the prior 08/26/2024 examination have completely resolved. No pneumothorax. HEART: Severe coronary artery calcifications. No cardiomegaly. No significant pericardial effusion. BONES/JOINTS: Unremarkable. No acute fracture. SOFT TISSUES: Left-sided breast implant. VASCULATURE: See above. LYMPH NODES: Unremarkable. No enlarged lymph nodes. Impression 1. Bilateral tree-in-bud and groundglass opacities persist but show interval improvement compared to 08/26/2024. This is typically seen with an atypical infection. 2. Interval resolution of previously identified bilateral pleural effusions. 3. Moderate upper lobe predominant centrilobular emphysematous changes. Report Dictated on Electronically Signed By: Mandy Becerril MD Electronically Signed Date/Time: 10/20/2024 11:25 AM EST CTA Chest: Results for orders placed during the hospital encounter of 01/19/24 CTA chest angiogram w and/or wo IV contrast Narrative Patient Name: ROLANDO PETERS : 1945 Exam Date/Time: 01/19/2024 14:28 Procedure: CT CHEST ANGIOGRAM W AND/OR WO IV CONTRAST Ordering Provider: HARRIS HOLLI Reason For Exam: Pulmonary embolism (PE) suspected, unknown D-dimer CT ANGIOGRAPHY CHEST: CLINICAL INDICATION: Dyspnea TECHNIQUE: Transaxial sequence from apices through the bases during dynamic intravenous infusion of75 mL of contrast media, injected at a high flow rate. Multiplanar and 3D MIP reconstruction was performed concurrently on an independent viewing workstation. Dose reduction was employed with automated exposure control. COMPARISON: 11/25/2023 FINDINGS: Exam quality: Good contrast enhancement of the vasculature. Pulmonary Arteries: No filling defects identified throughout the main pulmonary arteries along withthe lobar, segmental and visualized subsegmental branches. Aorta: Normal caliber. Atherosclerotic calcifications. Lungs: There is diffuse smooth interlobular septal thickening and scattered groundglass opacities in both lungs. Small infiltrates are present in the anterior left upper lobe which corresponds to theabnormality on the prior CT, as well as in the right middle lobe. There are multiple small nodules measuring up to 4 mm in the left lower lobe (series 4 images 193 and 204) and right upper lobe (image 140). Pleural fluid: Moderate to large right and small left pleural effusions. Heart: Cardiac chambers are normal in size. Coronary artery calcifications are noted. Mediastinum/Jody: No mediastinal or hilar mass. Soft tissues chest wall/Neck base: Surgical clips in the right breast. A left breast implant is present. Upper abdomen: No abnormality throughout the visualized portions of liver. No abnormality throughout the spleen. Adrenals are unremarkable. Osseous structures: Mild degenerative change of the thoracic spine is noted. Impression 1. No pulmonary embolus identified. 2. Interlobular septal thickening and groundglass opacities compatible with pulmonary edema. Bilateral infiltrates could be due to alveolar edema or infection; recommend imaging follow-up to ensure resolution. 3. Bilateral pleural effusions, larger on the right. 4. Atherosclerotic disease with coronary artery calcifications. 5. Multiple small incidental lung nodules, not requiring follow-up given their small size*. *2017 - UPDATED [employer] GUIDELINES FOR MANAGEMENT OF SMALL PULMONARY NODULES DETECTED ONCT Note: Recommendations do not apply for lung cancer screening, patients with immunosuppression or with known cancer. Dimensions are average of long and short axis rounded to the millimeter MULTIPLE NODULES: LOW RISK PATIENT (Use most suspicious nodule to manage guidelines) All <6mm - No follow up Any >6mm - 3-6 months, then consider 18-24 months MULTIPLE NODULES: HIGH RISK PATIENT (Use most suspicious nodule to manage guidelines) All <6mm - No follow up Any >6mm - 3-6 months, then 18-24 months Report Dictated on Electronically Signed By: Deven Mendoza MD Electronically Signed Date/Time: 01/19/2024 3:28 PM EDT PFT's & Sleep studies: Other Studies: Reviewed and as per electronic record. CxR/CT images personally reviewed by me when available; salient findings summarized in A/P. [1] Past Medical History: Diagnosis Date Arrhythmia Arthritis Asthma Breast cancer (HCC) 1993 Right Breast(Mastectomy) Breast cancer (HCC) 2010 Left Breast(Simple Mastectomy, SLND) Chronic kidney disease COPD (chronic obstructive pulmonary disease) (HCC) Coronary artery disease Diabetes (HCC) Emphysema of lung (HCC) Within last year GERD (gastroesophageal reflux disease) High blood pressure Lung nodule -2022 Occlusion and stenosis of unspecified carotid artery Pure hypercholesterolemia Syncope and collapse 08/29/2022 [2] Past Surgical History: Procedure Laterality Date BREAST LUMPECTOMY BRONCHOSCOPY CARDIAC ELECTROPHYSIOLOGY PROCEDURE N/A 05/05/2024 Performed by Walt Leigh MD at [facility] Cardiac Cath/EP Lab CAROTID ENDARTERECTOMY Right 2008 CATARACT EXTRACTION Bilateral 2006 CHEST TUBE INSERTION Right 10/05/2023 ENDOBRONCHIAL ULTRASOUND EBUS (HISTORICAL) 10/05/2023 LUNG BIOPSY MASTECTOMY Left 2010 simple/reconstruction/gingivagrapht MASTECTOMY Right 1994 reconstruction (TRAM) TOTAL ABDOMINAL HYSTERECTOMY W/ BILATERAL SALPINGOOPHORECTOMY 1998 TUBAL LIGATION 1979 [3] Allergies Allergen Reactions Isosulfan Blue Anaphylaxis Methylene Blue Sulfa Antibiotics Rash [4] Current Outpatient Medications: albuterol (Ventolin HFA) 108 (90 Base) MCG/ACT inhaler, Inhale 2 puffs every 4 hours as needed for wheezing or shortness of breath., Disp: 8 g, Rfl: 11 amLODIPine (Norvasc) 2.5 MG tablet, Take 1 tablet (2.5 mg) by mouth daily., Disp: 30 tablet, Rfl: 1 apixaban (Eliquis) 5 MG tablet, Take 1 tablet (5 mg) by mouth 2 times daily., Disp: 180 tablet, Rfl: 3 carvedilol (Coreg) 12.5 MG tablet, Take 1 tablet (12.5 mg) by mouth 2 times daily (with meals)., Disp: 180 tablet, Rfl: 3 cholecalciferol (Vitamin D-3) 50 MCG (2000 UT) tablet, Take 4,000 Units by mouth daily., Disp: , Rfl: Contour Next Test test strip, USE ONE strip TO test TWICE DAILY, Disp: , Rfl: Cyanocobalamin (B-12) 1000 MCG capsule, Take 1 tablet by mouth daily., Disp: , Rfl: ezetimibe (Zetia) 10 MG tablet, Take 1 tablet (10 mg) by mouth daily., Disp: 90 tablet, Rfl: 2 Finerenone (Kerendia) 10 MG tablet, Take 1 tablet by mouth daily., Disp: , Rfl: fluticasone (Cutivate) 0.05 % cream, Apply topically Daily as needed (itching)., Disp: , Rfl: furosemide (Lasix) 20 MG tablet, Take 1 tablet (20 mg) by mouth every other day., Disp: 15 tablet, Rfl: 11 Icosapent Ethyl (Vascepa) 1 g capsule, Take 2 capsules (2 g) by mouth 2 times daily (with meals)., Disp: 360 capsule, Rfl: 3 Jentadueto XR 2.5-1000 MG per 24 hr tablet, take 2 tablets by mouth once daily, Disp: , Rfl: losartan (Cozaar) 100 MG tablet, Take 1 tablet (100 mg) by mouth daily., Disp: 90 tablet, Rfl: 1 Multiple Vitamins-Minerals (MULTIPLE VITAMINS/WOMENS PO), Take by mouth daily., Disp: , Rfl: pantoprazole (ProtoNix) 40 MG EC tablet, Take 1 tablet (40 mg) by mouth 2 times daily for 30 days, THEN 1 tablet (40 mg) every morning (before breakfast). Do not crush, chew, or split.., Disp: 120 tablet, Rfl: 0 predniSONE (Deltasone) 20 MG tablet, TAKE THREE TABLETS BY MOUTH DAILY FOR FOURTEEN DAYS, THEN taper down TO TWO & ONE-HALF TABLETS DAILY FOR FOURTEEN DAYS, AND finally TWO TABLETS DAILY UNTIL FOLLOWING UP, Disp: , Rfl: rosuvastatin (Crestor) 10 MG tablet, daily., Disp: , Rfl: sertraline (Zoloft) 25 MG tablet, Take 1 tablet (25 mg) by mouth daily., Disp: 90 tablet, Rfl: 0 tiotropium (Spiriva Respimat) 2.5 MCG/ACT inhaler, Inhale 2 puffs daily., Disp: 1 each, Rfl: 11 No current facility-administered medications for this visit. [5] Family History Problem Relation Name Age of Onset Ovarian cancer Mother Alia 66 Heart attack Father Lucita (Mother) 76 High Blood Pressure Father Lucita (Mother) Macular degeneration Father Lucita (Mother) Cancer Father Lucita (Mother) Ovarian cancer Mother's Sister 45 Other ([id number]) Son neuofibromatosis, BRCA1 positive Neurofibromatosis Son High Blood Pressure Son Cancer Son hairy cell leukemia Breast cancer Cousin 42 +brca Bladder Cancer Cousin 19 Hypertension Sister Angie Kidney disease Sister Angie Hypertension Sister Mireya Sister Kidney disease Sister Mireya Sister documented in this encounterSSt. John of God [id number] Telephone encounter Note* Telephone Encounter - Lloy Cooper - 12/22/2024 2:42 PM EDT Faxed over cardiac clearance to gastro 12/22/24. [facility] [id number] Miscellaneous Notes* Telephone Encounter - Loly Cooper - 12/22/2024 2:42 PM EDT Faxed over cardiac clearance to gastro 12/22/24. * Telephone Encounter - Bob Guerra RN - 12/22/2024 1:32 PM EDT Secure chatted Dr. Jerome for clearance letter * Telephone Encounter - Lorena Gu - 12/20/2024 1:30 PM EDT Received phone call from Suly with [employer] [facility] in regards to patient's clearance. Patient sawDr. Jerome on 12-12-24 but clearance not mentioned in note. Please advise thank you. Surgery is scheduled for 12-26-24. * Telephone Encounter - Blaire Zhu - 11/24/2024 8:33 AM EDT Pt is scheduled for a colonoscopy on 12-26-24 Please advise if cleared documented in this encounterSSt. John of God [id number] Telephone encounter Note* Telephone Encounter - Bob Guerra RN - 12/22/2024 1:32 PM EDT Secure chatted Dr. Jerome for clearance letter [facility] [id number] History of Present illness Narrative* Huan Caldwell, [facility] - 12/22/2024 10:40 AM EDT Patient is sent at the request of Celia Al DO for my opinion regarding Type 2 diabetes. My final recommendations will be communicated back to the requesting provider by way of shared medical record. 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, unspecified estrogen receptor status (11/04/2022), Dyslipidemia (03/08/2019), Encounter for screening for lipoid disorders (09/16/2013), Encounter for screening for other suspected endocrine disorder (09/16/2013), Exertional shortness of breath (08/26/2024), History of COVID-19 (09/01/2022), History of diabetes mellitus (02/03/2024), Orthostatic hypotension (09/23/2022), Other conditions influencing health status, Other retirement (current) drug therapy (09/16/2013), Palpitations (11/11/2017), Personal history of malignant neoplasm of breast, Personal history of other diseases of therespiratory system, Personal history of other diseases of the respiratory system (10/13/2020), Personal history of other endocrine, nutritional and metabolic disease, Personal history of other specified conditions (09/16/2013), Pneumothorax (10/05/2023), Proteinuria, unspecified, and Syncope (09/23/2022). Past Surgical History: She has a past surgical history that includes Mastectomy (03/30/2014); Hysterectomy (03/30/2014); Other surgical history (03/30/2014); and Cataract extraction (03/30/2014). Social History: She reports that she has quit smoking. Her smoking use included cigarettes. She has been exposed totobacco smoke. She has never used smokeless tobacco. She reports current alcohol use. She reports that she does not use drugs. Family History: Family History[1] Allergies: Methylene blue, Lymphazurin [isosulfan blue], Sulfa (sulfonamide antibiotics), and Adhesive DIABETES MELLITUS TYPE 2: Last optometry exam: yearly Patient denies sores or cuts on feet today Current diabetic medications include: Jentadueto Clarifications to above regimen: n/a Adverse Effects: none reported Any episodes of hypoglycemia? No, . Did patient treat episode of hypoglycemia appropriately? N/A Does the patient have a prescription for [id number] Glucagon? Not on insulin Secondary Prevention: Statin? Yes OKSANA-I/ARB? Yes Aspirin? No Pertinent PMH Review: PMH of Pancreatitis: No PMH of Retinopathy: No PMH of Urinary Tract Infections: No PMH of MTC: No PMH of MEN2: No UACR/EGFR in last year?: Yes Immunizations: Influenza? Yes COVID? Yes Pneumonia? No, recommend PCV20 Shingles? No, recommended Hepatitis B? No Drug Interactions: None requiring intervention Objective Last Recorded Vitals: BP Readings from Last 6 Encounters: 11/25/24 134/57 11/18/24 118/50 10/21/24 (!) 112/46 09/09/24 126/50 08/26/24 138/64 02/03/24 136/62 Wt Readings from Last 6 Encounters: 11/25/24 59.4 kg (131 lb) 11/18/24 60.3 kg (133 lb) 10/21/24 57.1 kg (125 lb 12.8 oz) 09/09/24 61.2 kg (135 lb) 02/03/24 64 kg (141 lb) 01/19/24 68 kg (150 lb) BMI Readings from Last 6 Encounters: 11/25/24 20.52 kg/m 11/18/24 20.83 kg/m 10/21/24 19.70 kg/m 09/09/24 21.14 kg/m 02/03/24 22.08 kg/m 01/19/24 23.49 kg/m Lab Review Lab Results Component Value Date BILITOT 0.6 11/25/2024 CALCIUM 8.9 11/25/2024 CO2 20 11/25/2024 CL 108 11/25/2024 CREATININE 0.98 11/25/2024 GLUCOSE 90 11/25/2024 ALKPHOS 41 11/25/2024 K 4.0 11/25/2024 PROT 5.7 (L) 11/25/2024 NA 137 11/25/2024 AST 12 11/25/2024 ALT 13 11/25/2024 BUN 30 (H) 11/25/2024 ANIONGAP 9 11/25/2024 MG 1.99 08/02/2024 PHOS 4.8 08/02/2024 ALBUMIN 3.7 11/25/2024 GFRF 79 02/18/2023 Lab Results Component Value Date TRIG 94 11/16/2024 CHOL 129 11/16/2024 LDLCALC 54 11/16/2024 HDL 57 11/16/2024 Lab Results Component Value Date HGBA1C 6.9 (H) 11/16/2024 HGBA1C 5.5 06/13/2024 HGBA1C 7.7 (H) 01/08/2024 Albumin/Creatinine Ratio Date Value Ref Range Status 06/13/2024 2,358.5 (H) <30.0 ug/mg Creat Final 03/07/2024 1,411.2 (H) <30.0 ug/mg Creat Final The ASCVD Risk score (Ravindra MADSEN, et al., 2019) failed to calculate for the following reasons: The valid total cholesterol range is 130 to 320 mg/dL Assessment/Plan Problem List Items Addressed This Visit SOB (shortness of breath) 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 Continue: current therapy including Jentadueto, Kerendia, and Spiriva Patient to drop off financial information at PCP office May consider Jardiance or Farxiga if control worsens Compliance at present is estimated to be good. Efforts to improve compliance (if necessary) will bedirected at cost. Education Provided to Patient: side effect mgmt and admin, hypoglycemia Follow-up: I recommend diabetes care be PRN for continued enrollment PCP Follow-Up: to schedule [facility] Patient Assistance Screening (VAF) Patient verbally reports monthly or yearly income which is less than 400% federal poverty level Application for program has been submitted for the following medications: Kerendia, Jentadueto, Spiriva Patient has been informed that program team will be reaching out to them to discuss necessary documentation, instructed to answer phone/return voicemail. Patient aware this process may take up to 6 weeks. If approved medication must be filled through [facility] pharmacy and may be picked up or mailed topatient. Continue all meds under the continuation of care with the referring provider and clinical pharmacy team. [1] Family History Problem Relation Name Age of Onset Ovarian cancer Mother Heart attack Father Other (auto immune) Sister Mireya No Known Problems Sister Angie Arthritis Other FH Heart murmur Other FH Hypertension Other FH Leukemia Other FH Breast cancer Other FH Female Ovarian cancer Other [facility] Phone: [phone]) 435-767005-06-2025 Telephone encounter Note* Telephone Encounter - Lorena Kelsy Gu - 12/20/2024 1:30 PM EDT Received phone call from Suly with [employer] in regards to patient's clearance. Patient sawDr. Jerome on 12-12-24 but clearance not mentioned in note. Please advise thank you. Surgery is scheduled for 12-26-24. [facility] [id number] Evaluation + Plan note* Assessment & Plan Note - Rashi Jerome MD - 12/15/2024 12:21 PM EDTAssociated Problem(s): Bilateral carotid artery stenosis Moderate. Coronary risk equivalent. No symptoms. History of right carotid endarterectomy. Carotid US 04/2024 - moderate dz LICA; consider f/u in 1-2 yrs -Given ASCVD and DM2/CKD consider add SGLT2i [facility] [id number] Miscellaneous Notes* Assessment & Plan Note - Rashi Jerome MD - 12/15/2024 12:21 PM EDTAssociated Problem(s): Bilateral carotid artery stenosis Moderate. Coronary risk equivalent. No symptoms. History of right carotid endarterectomy. Carotid US 04/2024 - moderate dz LICA; consider f/u in 1-2 yrs -Given ASCVD and DM2/CKD consider add SGLT2i * Assessment & Plan Note - Rashi Jerome MD - 12/15/2024 12:17 PM EDT Associated Problem(s): Weight loss Steady weight drop since 2019 when she was 185 lbs, now 135 lbs, BMI 21. This is due to decreased caloric intake. Would prefer she maintain this weight as long as its not volume. 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 Diabetic related disease. -Continue diabetic management -Continue losartan and Finerenone which is managed by Dr. Livingston -Consider SGLT2i given ASCVD+DM2+CKD. Will defer to Renal and Endocrine. Acceptable medication for co-management of patients with HF of any cause. * Assessment & Plan Note - Rashi Jerome MD - 12/12/2024 1:36 PM EDT Associated Problem(s): Dyslipidemia Mixed HPL. Target LDL <70. Excellent response to current meds. TG also <150. Labs 11/2024 - Cont zetia - Cont crestor - Cont Vascepa - lipids due in November of every year * Assessment & Plan Note - Rashi Jerome MD - 12/12/2024 1:36 PM EDT Associated Problem(s): Essential hypertension Stable. Reasonably controlled on therapies. Recommend resting target <130/80 mmHg -continues on Losartan 100 mg daily -continues on Coreg 12.5 mg twice daily -continues on amlodipine 2.5 mg daily; titrate if needed -Continue Finerenone; K+ stable. Added by Renal for G2/A3 diabetic disease. 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 NYHA Class I. Likely tachy-mediated 01/2024 (by bedside echo also showing signif MV regurg; no EF available); now resolved. TTE 07/2024 shows LVEF 55%, normal wall motion, increased filling pressures, 2+ MR. Looks euvolemic -continues on Losartan 100 mg daily -continues on Coreg as above -Continue Finerenone; though this is mostly beneficial in non-HFpEF pts, she did have a depressed EF in the past. -continues on Lasix 20 mg [id number]; and PRN A decreased frequency this change was made 09/2024 due to both assessment in office 08/2024 and BMP with worsening creatinine -On next visit discuss addition of SGLT2i to help both risk of recurrent HF and management of DM2/CKD. * Assessment & Plan Note - Rashi Jerome MD - 12/12/2024 1:34 PM EDT Associated Problem(s): PAF (paroxysmal atrial fibrillation) (HCC) Hx parox AFib s/p PVI + PWI + ablation of atypical atrial flutter on 05/06/2024. Amiodarone stopped 1 mos after ablation. No breakthru symptoms or known recurrent Afib. -maintaining SR -continues on Eliquis 5 mg BID -continues on Coreg 12.5 mg BID -follows with EP- Dr. Leigh on PRN basis documented in this [facility]SSt[facility] [id number] Evaluation + Plan note* Assessment & Plan Note - Rashi Jerome MD - 12/15/2024 12:17 PM EDT Associated Problem(s): Weight loss Steady weight drop since 2019 when she was 185 lbs, now 135 lbs, BMI 21. This is due to decreased caloric intake. Would prefer she maintain this weight as long as its not volume. 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 Diabetic related disease. -Continue diabetic management -Continue losartan and Finerenone which is managed by Dr. Livingston -Consider SGLT2i given ASCVD+DM2+CKD. Will defer to Renal and Endocrine. Acceptable medication for co-management of patients with HF of any cause. [facility] [id number] Evaluation + Plan note* Assessment & Plan Note - Rashi Jerome MD - 12/12/2024 1:36 PM EDTAssociated Problem(s): Dyslipidemia Mixed HPL. Target LDL <70. Excellent response to current meds. TG also <150. Labs 11/2024 - Cont zetia - Cont crestor - Cont Vascepa - lipids due in November of every year [facility] [id number] Evaluation + Plan note* Assessment & Plan Note - Rashi Jerome MD - 12/12/2024 1:36 PM EDTAssociated Problem(s): Essential hypertension Stable. Reasonably controlled on therapies. Recommend resting target <130/80 mmHg -continues on Losartan 100 mg daily -continues on Coreg 12.5 mg twice daily -continues on amlodipine 2.5 mg daily; titrate if needed -Continue Finerenone; K+ stable. Added by Renal for G2/A3 diabetic disease. -Lasix every other day [facility] [id number] Evaluation + Plan note* Assessment & Plan Note - Rashi Jerome MD - 12/12/2024 1:35 PM EDTAssociated Problem(s): Heart failure with improved ejection fraction (HFimpEF) ([facility]) ACC Stage C. NYHA Class I. Likely tachy-mediated 01/2024 (by bedside echo also showing signif MV regurg; no EF available); now resolved. TTE 07/2024 shows LVEF 55%, normal wall motion, increased filling pressures, 2+ MR. Looks euvolemic -continues on Losartan 100 mg daily -continues on Coreg as above -Continue Finerenone; though this is mostly beneficial in non-HFpEF pts, she did have a depressed EF in the past. -continues on Lasix 20 mg [id number]; and PRN A decreased frequency this change was made 09/2024 due to both assessment in office 08/2024 and BMP with worsening creatinine -On next visit discuss addition of SGLT2i to help both risk of recurrent HF and management of DM2/CKD. [facility] [id number] Evaluation + Plan note* Assessment & Plan Note - Rashi Jerome MD - 12/12/2024 1:34 PM EDTAssociated Problem(s): PAF (paroxysmal atrial fibrillation) (HCC) Hx parox AFib s/p PVI + PWI + ablation of atypical atrial flutter on 05/06/2024. Amiodarone stopped 1 mos after ablation. No breakthru symptoms or known recurrent Afib. -maintaining SR -continues on Eliquis 5 mg BID -continues on Coreg 12.5 mg BID -follows with EP- Dr. Leigh on PRN basis [facility] [id number] History of Present illness Narrative* Rashi Jerome MD - 12/12/2024 1:00 PM EDT Images from the original note were not included. [facility] - [address] [facility] [address] Dept: [phone] Dept Visit type: Established : 1945 Reason for Visit: Follow-up Assessment and Plan 1. Heart failure with improved ejection fraction (HFimpEF) ([facility]) Assessment & Plan: ACC Stage C. NYHA Class I. Likely tachy-mediated 01/2024 (by bedside echo also showing signif MV regurg; no EF available); now resolved. TTE 07/2024 shows LVEF 55%, normal wall motion, increased filling pressures, 2+ MR. Looks euvolemic -continues on Losartan 100 mg daily -continues on Coreg as above -Continue Finerenone; though this is mostly beneficial in non-HFpEF pts, she did have a depressed EF in the past. -continues on Lasix 20 mg [id number]; and PRN A decreased frequency this change was made 09/2024 due to both assessment in office 08/2024 and BMP with worsening creatinine -On next visit discuss addition of SGLT2i to help both risk of recurrent HF and management of DM2/CKD. Orders: - furosemide (Lasix) 20 MG tablet; Take 1 tablet (20 mg) by mouth every other day., Starting Thu12/12/2024, Until Thu12/12/2025, Normal 2. PAF (paroxysmal atrial fibrillation) ([facility]) Assessment & Plan: Hx parox AFib s/p PVI + PWI + ablation of atypical atrial flutter on 05/06/2024. Amiodarone stopped 1 mos after ablation. No breakthru symptoms or known recurrent Afib. -maintaining SR -continues on Eliquis 5 mg BID -continues on Coreg 12.5 mg BID -follows with EP- Dr. Leigh on PRN basis Orders: - ECG 12 lead 3. Dyslipidemia Assessment & Plan: Mixed HPL. Target LDL <70. Excellent response to current meds. TG also <150. Labs 11/2024 - Cont zetia - Cont crestor - Cont Vascepa - lipids due in November of every year Orders: - ezetimibe (Zetia) 10 MG tablet; Take 1 tablet (10 mg) by mouth daily., Starting 12/12/2024, Normal 4. Essential hypertension Assessment & Plan: Stable. Reasonably controlled on therapies. Recommend resting target <130/80 mmHg -continues on Losartan 100 mg daily -continues on Coreg 12.5 mg twice daily -continues on amlodipine 2.5 mg daily; titrate if needed -Continue Finerenone; K+ stable. Added by Renal for G2/A3 diabetic disease. -Lasix every other day Orders: - amLODIPine (Norvasc) 2.5 MG tablet; Take 1 tablet (2.5 mg) by mouth daily., Starting Thu12/12/2024, Until Thu12/12/2025, Normal 5. Bilateral carotid artery stenosis Assessment & Plan: Moderate. Coronary risk equivalent. No symptoms. History of right carotid endarterectomy. Carotid US 04/2024 - moderate dz LICA; consider f/u in 1-2 yrs -Given ASCVD and DM2/CKD consider add SGLT2i 6. 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 Diabetic related disease. -Continue diabetic management -Continue losartan and Finerenone which is managed by Dr. Livingston -Consider SGLT2i given ASCVD+DM2+CKD. Will defer to Renal and Endocrine. Acceptable medication for co-management of patients with HF of any cause. 7. Weight loss Assessment & Plan: Steady weight drop since 2019 when she was 185 lbs, now 135 lbs, BMI 21. This is due to decreased caloric intake. Would prefer she maintain this weight as long as its not volume. -Encourage appropriate caloric intake -Avoid further weight loss; mgt per PCP Follow up in about 6 months (around 06/13/2025) for SEBASTIAN. Subjective Hx of carotid dz and CEA, breast CA, CKD stage II, tobacco abuse, COPD, HTN, HFimpEF, Persistent Afib, s/p ablation. She was admitted to [facility] September 2023 with acute pneumothorax after having an outpatient [facility]. Shereceived a chest tube. No cardiac decompensation at that office visit. January 2024 hospitalized with cardiogenic shock, A fib RVR, and tachy-mediated [employer]CH[employer]ICIAN (depressed EF withHFrEF by bedside echo but no quantitative report). DMITRY + Amiodarone + Cardioversion successful. Apr [address] Leigh PVI + PWI + atrial flutter ablation. No longer on Amiodarone. Aug 2024 hospitalized for pneumonia and right thoracentesis s/p 450 ml off. Cardiology consulted for chest pain, dyspnea, CHF, and diuresed with IV Lasix, changed home lasix from 20 mg PRN to 20 mg daily, and recommended Lexiscan stress test once recovered. Reviewed conversations from the hospital, including consideration of stress test once pneumonia andhypertension improve. Cardiology's consult note from when she was in hospital stated, Her high-sensitivity troponins were negative, and a CT angiogram was done of her chest and abdomen to rule out dissection and this was negative for dissection but did show diffuse atherosclerotic disease throughout her aorta and even a possible occlusion of the right iliac artery. Seen for hospital follow-up. Stress test ordered. She will follow-up with Dr. Jerome after that- alot has happened since she last saw him 04/2023. TODAY: No major cardiac complaints today. Bilateral leg weakness off/on. CRUZ with steps and walking from office to car. No chest pain, but can report fleeting discomfort between her shoulder blades Sleeping on 2+ pillows by choice. Compliant with aPAP. Taking meds appropriately. Sees Miki for renal mgt. Note steady weight drop since 2019 when she was 185 lbs, now 135 lbs, BMI 21. This is due to decreased caloric intake. Would prefer she maintain this weight as long as its not volume. Rolando Peters Review of Systems Constitutional: Positive for activity change (daily activity has improved). Negative for chills, diaphoresis, fatigue and fever. HENT: Negative for nosebleeds and trouble swallowing. Eyes: Negative for discharge and visual disturbance. Respiratory: Positive for wheezing (occasional). Negative for apnea, cough, chest tightness and shortness of breath. Cardiovascular: Positive for palpitations (intermittent) and leg swelling (left ankle). Negative for chest pain. Gastrointestinal: Negative for abdominal distention, abdominal pain, blood in stool, diarrhea, nausea and vomiting. Endocrine: Negative for cold intolerance and heat intolerance. Genitourinary: Negative for hematuria. Musculoskeletal: Negative for gait problem and myalgias. Skin: Negative for color change and rash. Neurological: Positive for weakness (right leg). Negative for dizziness, seizures, syncope, facial asymmetry, speech difficulty, light-headedness, numbness and headaches. Hematological: Bruises/bleeds easily (Eliquis). Psychiatric/Behavioral: Negative for dysphoric mood. Allergies Allergen Reactions Isosulfan Blue Anaphylaxis Methylene Blue Sulfa Antibiotics Rash Current Outpatient Medications: albuterol (Ventolin HFA) 108 (90 Base) MCG/ACT inhaler, Inhale 2 puffs every 4 hours as needed for wheezing or shortness of breath., Disp: 8 g, Rfl: 11 amLODIPine (Norvasc) 2.5 MG tablet, Take 1 tablet (2.5 mg) by mouth daily., Disp: 30 tablet, Rfl: 1 apixaban (Eliquis) 5 MG tablet, Take 1 tablet (5 mg) by mouth 2 times daily., Disp: 180 tablet, Rfl: 3 carvedilol (Coreg) 12.5 MG tablet, Take 1 tablet (12.5 mg) by mouth 2 times daily (with meals)., Disp: 180 tablet, Rfl: 3 cholecalciferol (Vitamin D-3) 50 MCG (2000 UT) tablet, Take 4,000 Units by mouth daily., Disp: , Rfl: Contour Next Test test strip, USE ONE strip TO test TWICE DAILY, Disp: , Rfl: Cyanocobalamin (B-12) 1000 MCG capsule, Take 1 tablet by mouth daily., Disp: , Rfl: ezetimibe (Zetia) 10 MG tablet, Take 1 tablet (10 mg) by mouth in the morning., Disp: 90 tablet, Rfl: 2 Finerenone (Kerendia) 10 MG tablet, Take 1 tablet by mouth daily., Disp: , Rfl: fluticasone (Cutivate) 0.05 % cream, Apply topically Daily as needed (itching)., Disp: , Rfl: furosemide (Lasix) 20 MG tablet, Take 1 tablet (20 mg) by mouth every other day., Disp: , Rfl: Icosapent Ethyl (Vascepa) 1 g capsule, Take 2 capsules (2 g) by mouth 2 times daily (with meals)., Disp: 360 capsule, Rfl: 3 Jentadueto XR 2.5-1000 MG per 24 hr tablet, take 2 tablets by mouth once daily, Disp: , Rfl: losartan (Cozaar) 100 MG tablet, Take 1 tablet (100 mg) by mouth daily., Disp: 90 tablet, Rfl: 1 Multiple Vitamins-Minerals (MULTIPLE VITAMINS/WOMENS PO), Take by mouth daily., Disp: , Rfl: pantoprazole (ProtoNix) 40 MG EC tablet, Take 1 tablet (40 mg) by mouth 2 times daily for 30 days, THEN 1 tablet (40 mg) every morning (before breakfast). Do not crush, chew, or split.., Disp: 120 tablet, Rfl: 0 predniSONE (Deltasone) 20 MG tablet, TAKE THREE TABLETS BY MOUTH DAILY FOR FOURTEEN DAYS, THEN taper down TO TWO & ONE-HALF TABLETS DAILY FOR FOURTEEN DAYS, AND finally TWO TABLETS DAILY UNTIL FOLLOWING UP, Disp: , Rfl: rosuvastatin (Crestor) 10 MG tablet, daily., Disp: , Rfl: sertraline (Zoloft) 25 MG tablet, Take 1 tablet (25 mg) by mouth daily., Disp: 90 tablet, Rfl: 0 tiotropium (Spiriva Respimat) 2.5 MCG/ACT inhaler, Inhale 2 puffs daily., Disp: 1 each, Rfl: 11 Past Medical History: Diagnosis Date Arrhythmia Arthritis Asthma Breast cancer (HCC) 1993 Right Breast(Mastectomy) Breast cancer (HCC) 2010 Left Breast(Simple Mastectomy, SLND) Chronic kidney disease COPD (chronic obstructive pulmonary disease) (HCC) Coronary artery disease Diabetes (HCC) Emphysema of lung (HCC) Within last year GERD (gastroesophageal reflux disease) High blood pressure Lung nodule -2022 Occlusion and stenosis of unspecified carotid artery Pure hypercholesterolemia Syncope and collapse 08/29/2022 Social History Tobacco Use Smoking status: Former Current packs/day: 0.00 Average packs/day: 1 pack/day for 30.0 years (30.0 ttl pk-yrs) Types: Cigarettes Start date: 08/17/1963 Quit date: 08/17/1993 Years since quittin.3 Smokeless tobacco: Never 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: , 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[facility], 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, 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 Substance Use Topics Alcohol use: Yes Alcohol/week: 2.0 - 16.0 standard drinks of alcohol Types: 2 Glasses of wine per week Comment: occ Past Surgical History: Procedure Laterality Date BRONCHOSCOPY CARDIAC ELECTROPHYSIOLOGY PROCEDURE N/A 05/05/2024 Performed by Walt Leigh MD at [facility] Cardiac Cath/EP Lab CAROTID ENDARTERECTOMY Right 2009 CATARACT EXTRACTION Bilateral 2006 CHEST TUBE INSERTION Right 10/05/2023 [facility] ENDOBRONCHIAL ULTRASOUND EBUS (HISTORICAL) 10/05/2023 LUNG BIOPSY MASTECTOMY Left 2010 simple/reconstruction/gingivagrapht MASTECTOMY Right 1993 reconstruction (TRAM) TOTAL ABDOMINAL HYSTERECTOMY W/ BILATERAL SALPINGOOPHORECTOMY 1998 TUBAL LIGATION 1979 Family History Problem Relation Name Age of Onset Ovarian cancer Mother 66 Heart attack Father Lucita (Mother) 76 High Blood Pressure Father Lucita (Mother) Macular degeneration Father Lucita (Mother) Cancer Father Lucita (Mother) Ovarian cancer Mother's Sister 45 Other ([id number]) Son neuofibromatosis, BRCA1 positive Neurofibromatosis Son High Blood Pressure Son Cancer Son hairy cell leukemia Breast cancer Cousin 42 +brca Bladder Cancer Cousin 19 Hypertension Sister Angie Kidney disease Sister Angie Hypertension Sister Mireya Sister Kidney disease Sister Mireya Sister Objective Vitals: 12/12/24 1256 BP: 134/56 BP Location: Left arm Patient Position: Sitting BP Cuff Size: Adult Pulse: 72 SpO2: 97% Weight: 135 lb 8 oz (61.5 kg) Physical Exam Vitals reviewed. Constitutional: General: She is not in acute distress. Appearance: She is well-developed. Neck: Vascular: No JVD. Cardiovascular: Rate and Rhythm: Normal rate and regular rhythm. Heart sounds: Normal heart sounds. No murmur heard. Pulmonary: Effort: Pulmonary effort is normal. Breath sounds: Normal breath sounds. Abdominal: General: Bowel sounds are normal. Palpations: Abdomen is soft. Musculoskeletal: Right lower leg: No edema. Left lower leg: No edema. Neurological: Mental Status: She is alert. Psychiatric: Attention and Perception: Attention normal. Behavior: Behavior is cooperative. Data Reviewed and Summarized EF BP Date Value Ref Range Status 07/25/2024 55 55 - 100 % Final EF Physician Date Value Ref Range Status 01/22/2024 48 % Final Review of tests/labs done/ordered within my specialty: EKG in office: Review of tests/labs done/ordered outside my specialty: Independent interpretation of tests: Rashi Jerome MD I, Rashi Jerome MD, provided Rolando Peters ongoing care for their single serious or complex condition described above. I assume responsibility for the patient's ongoing medical care for this condition(s). documented in this [facility]04-16-2025 Telephone encounter Note* Telephone Encounter - Leonarda Menjivar MA - 11/30/2024 10:59 AM EDT Pt returned my called and notify the results. Pt understood and have no question at this time. [place] [id number] Miscellaneous Notes* Telephone Encounter - Leonarda Menjivar MA - 11/30/2024 10:59 AM EDT Pt returned my called and notify the results. Pt understood and have no question at this time. * Telephone Encounter - Leonarda Menjivar MA - 11/29/2024 4:03 PM EDT 2nd * Telephone Encounter - Leonarda Menjivar MA - 11/22/2024 2:26 PM EDT Called pt to notify results. LVM * Telephone Encounter - Leonarda Menjivar MA - 11/18/2024 1:27 PM EDT Overnight oximetry report uploaded in media, please review. Thank you documented in this [place] [id number] Telephone encounter Note* Telephone Encounter - Leonarda Menjivar MA - 11/29/2024 4:03 PM EDT 2nd [id number] Miscellaneous Notes* Telephone Encounter - Leonarda Menjivar MA - 11/29/2024 4:03 PM EDT 2nd * Telephone Encounter - Leonarda Menjivar MA - 11/22/2024 2:26 PM EDT Called pt to notify results. LVM * Telephone Encounter - Leonarda Menjivar MA - 11/18/2024 1:27 PM EDT Overnight oximetry report uploaded in media, please review. Thank you documented in this [place] [address]-15-2025 Telephone encounter Note* Telephone Encounter - Cortney Sales - 11/29/2024 2:56 PM EDT Patient fills with [facility] using [facility]. Please review pended Rx and send to [facility] if appropriate. Thank you! [place] [id number] Miscellaneous Notes* Telephone Encounter - Cortney Sales - 11/29/2024 2:56 PM EDT Patient fills with [facility] using [facility]. Please review pended Rx and send to [facility] if appropriate. Thank you! documented in this [place] [address]-11-2025 History of Present illness Narrative* Celia Al DO - 11/25/2024 1:00 PM EDT Subjective Reason for Visit: Rolando Peters is an 79 y.o. female here for a Medicare Wellness visit. Past Medical, Surgical, and Family History reviewed and updated in chart. Reviewed all medications by prescribing practitioner or clinical pharmacist (such as prescriptions,OTCs, herbal therapies and supplements) and documented in the medical record. HPI Patient presents for physical exam. 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 Lindsay due ? Patient denies other complaints. Patient Self Assessment of Health Status Patient Self Assessment: Poor Nutrition and Exercise Current Diet: Well Balanced Diet Adequate Fluid Intake: Yes Caffeine: Yes Exercise Frequency: No Exercise Functional Ability/Level of Safety Cognitive Impairment Observed: No cognitive impairment observed Cognitive Impairment Reported: No cognitive impairment reported by patient or family Home Safety Risk Factors: Loose rugs, No grab bars, bathroom Patient Care Team: Celia Al DO as PCP - General Celia Al DO as PCP - [facility] [employer] PCP Rashi Jerome MD as Referring Physician (Cardiology) Samuel Cochran MD as Referring Physician (Gastroenterology) Juany Larsen RN as Program Trainer (Case Management) Jhoan Livingston MD as Sports Book Server (Nephrology) Review of Systems Constitutional: Negative for activity change, appetite change, fatigue and fever. HENT: Negative for congestion. Respiratory: Negative for cough, choking and chest tightness. Cardiovascular: Negative for chest pain, palpitations and leg swelling. Musculoskeletal: Negative for arthralgias, back pain and gait problem. Skin: Negative for color change and pallor. Neurological: Negative for dizziness, facial asymmetry, light-headedness and headaches. Objective Vitals: BP 134/57 Pulse 65 Temp 36.5 C (97.7 F) (Oral) Ht 1.702 m (5' 7) Wt 59.4 kg (131 lb) SpO2 97% BMI 20.52 kg/m Physical Exam Constitutional: General: She is not in acute distress. Appearance: Normal appearance. She is not toxic-appearing. HENT: Head: Normocephalic. Right Ear: Tympanic membrane, ear canal and external ear normal. Left Ear: Tympanic membrane, ear canal and external ear normal. Eyes: Conjunctiva/sclera: Conjunctivae normal. Pupils: Pupils are equal, round, and reactive to light. Cardiovascular: Rate and Rhythm: Normal rate and regular rhythm. Pulses: Normal pulses. Heart sounds: Normal heart sounds. Pulmonary: Effort: No respiratory distress. Breath sounds: No wheezing, rhonchi or rales. Abdominal: General: Bowel sounds are normal. There is no distension. Palpations: Abdomen is soft. Tenderness: There is no abdominal tenderness. Musculoskeletal: General: No swelling or tenderness. Skin: Findings: No lesion or rash. Neurological: General: No focal deficit present. Mental Status: She is alert and oriented to person, place, and time. Mental status is at baseline. Gait: Gait normal. Psychiatric: Mood and Affect: Mood normal. Behavior: Behavior normal. Thought Content: Thought content normal. Judgment: Judgment normal. Assessment/Plan Problem List Items Addressed This Visit Anxiety 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 with 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, without long-term current use of insulin History of breast cancer Hyperlipidemia Hypertriglyceridemia Primary hypertension INGA (obstructive sleep apnea) RESOLVED: 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, unspecified estrogen receptor status Overview Patient has history of Stage I LEFT sided (pT1b pN0) Triple negative breast cancer: -05/19/2011 LEFT mastectomy showed 0.6cm poorly differentiated carcinoma. LN evaluation was negativefor disease. -s/p TC x 4 until 11/2011 RIGHT sided breast cancer: S/p RIGHT sided mastectomy w/ axillary LN dissection 07/08/1994 followed by adjuvant chemo, followed by 5 yrs of tamoxifen. Treated by Dr. Lisa Llamas -s/p R breast reconstruction 1993 BRCA1 mutation positive: S/p bilateral mastectomy and TAHBSO BRCA1 positive S/P breast reconstruction, bilateral SOB (shortness of breath) 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 with 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 Overview Last Assessment & Plan: On oral meds. History of neuropathy. - Cont mgt per PCP. - Recommend Jardiance 10 mg daily given cardiac riskfactors. Last Assessment & Plan: On oral meds. History of neuropathy. - Cont mgt per PCP. - Recommend Jardiance 10 mg daily given cardiac risk factors. 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) Current Assessment & Plan Stable Elevated LFTs Overview Last Assessment & Plan: Elevated LFTs during recent hospitalization in setting of cardiogenic shock. -Recheck CMP to ensure her LFTs are downtrending Persistent atrial fibrillation (Multi) Overview Last Assessment & Plan: Nonvalvular. S/p DMITRY/DCC 01/2024. On amiodarone for rhythm suppression as she had heart failure whenshe was in A-fib. She is back in A-fib with controlled heart rate in the 70s. She is symptomatic with heart failure symptoms. -Discussed with Dr. Jerome, will recheck a CMP and if her liver enzymes are trending down would reload with amiodarone 400 mg p.o. twice daily x 1 week and schedule cardioversion in 1 week -Refer to EP for further evaluation -Continue carvedilol 25 mg p.o. twice daily -Continue Eliquis 5 mg p.o. twice daily (sent to [facility] to assist with cost) Current Assessment & Plan Patient currently on carvedilol and Eliquis Stable Stage 3 chronic kidney disease (Multi) Current Assessment & Plan Secondary to diabetes, stable Heart failure with improved ejection fraction (HFimpEF) Liver failure without hepatic coma (Multi) Current Assessment & Plan Following with GI, stable Moderate malnutrition (Multi) Current Assessment & Plan Patient is trying to do better with her diet and exercise especially after her most recent hospitalization for anemia Other Visit Diagnoses Healthcare maintenance - Primary Abrasion Routine general medical examination at health care facility Relevant Orders 1 Year Follow Up In [facility] - PCP - Wellness Exam Advance directive discussed with patient [Z71.89] 1. Patient's blood work has office visit 2. Patient's LDL goal less than 70 secondary to her diabetes, current LDL 3. Patient's triglyceride goal less than 150. Current triglycerides 119, continue on type IV diet 4. Patient to continue on her vitamin D3 2000 units daily for lifetime 5. Patient's hemoglobin A1c 6.9, goal hemoglobin A1c less than 6.5, continue no added sugar diet 6. Vitamin D level is low start on vitamin D3 2000 units daily 7. Is very anemic has recently been admitted to the hospital for anemia we will continue to monitor 8. Had mastectomy 1993 right had transflap and 2010 left with silicone insert 9. DEXA osteoporosis 2016 normal due [address] Linsday due ? 11. Patient to call if questions or concerns documented in this [facility] Work Phone: 1(819) 645-701704-11-2025 Miscellaneous Notes* ACP (Advance Care Planning) - Celia Al DO - 11/25/2024 1:00 PM EDT Confirming Previous Code Status: Advance Care Planning Note Discussion Date: 11/25/24 Discussion Participants: patient The patient wishes to discuss Advance Care Planning today and the following is a brief summary of our discussion. Patient has capacity to make their own medical decisions: Yes Health Care Agent/Surrogate Decision Maker documented in chart: Yes Documents on file and valid: Advance Directive/Living Will: Yes Health Care Power of Security Patrol Driver: Yes Other: Communication of Medical Status/Prognosis: stable Communication of Treatment Goals/Options: stable Treatment Decisions Goals of Care: quality of life is prioritized; willing to accept low-burden treatments to achieve meaningful goals Follow Up Plan stable Team Members stable Time Statement: Total face to face time spent on advance care planning was 5 minutes with 16 minutes spent in counseling, including the explanation. 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 * Assessment & Plan Note - Celia Al DO - 11/25/2024 12:31 PM EDT Associated Problem(s): Moderate malnutrition (Multi) Patient is trying to do better with her diet and exercise especially after her most recent hospitalization for anemia * Assessment & Plan Note - Celia Al DO - 11/25/2024 7:31 AM EDTAssociated Problem(s): Persistent atrial fibrillation (Multi) Patient currently on carvedilol and Eliquis [facility]able [facility]: 1(290) 337-623904-11-2025 Note* ACP (Advance Care Planning) - Celia Al DO - 11/25/2024 1:00 PM EDT Confirming Previous Code Status: Advance Care Planning Note Discussion Date: 11/25/24 Discussion Participants: patient The patient wishes to discuss Advance Care Planning today and the following is a brief summary of our discussion. Patient has capacity to make their own medical decisions: Yes Health Care Agent/Surrogate Decision Maker documented in chart: Yes Documents on file and valid: Advance Directive/Living Will: Yes Health Care Power of Security Patrol Driver: Yes Other: Communication of Medical Status/Prognosis: stable Communication of Treatment Goals/Options: stable Treatment Decisions Goals of Care: quality of life is prioritized; willing to accept low-burden treatments to achieve meaningful goals Follow Up Plan stable Team Members stable Time Statement: Total face to face time spent on advance care planning was 5 minutes with 16 minutes spent in counseling, including the explanation. Celia Al DO 11/25/2024 1:27 PM [facility] Work Phone: 1(663) 824-598204-11-2025 Evaluation + Plan note* Assessment & Plan Note - Celia Al DO - 11/25/2024 12:32 PM EDTAssociated Problem(s): Stage 3 chronic kidney disease (Multi) Secondary to diabetes, stable [facility] Work Phone: 1([phone]) 223-950504-11-2025 Evaluation + Plan note* Assessment & Plan Note - Celia Al DO - 11/25/2024 12:32 PM EDTAssociated Problem(s): Liver failure without hepatic coma (Multi) Following with GI, stable [facility] Work Phone: [phone]) 615-279704-11-2025 Evaluation + Plan note* Assessment & Plan Note - Celia Al DO - 11/25/2024 12:31 PM EDTAssociated Problem(s): 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 [facility] Work Phone: [phone]) 681-285204-11-2025 Evaluation + Plan note* Assessment & Plan Note - Celia Al DO - 11/25/2024 12:31 PM EDTAssociated Problem(s): Moderate malnutrition (Multi) Patient is trying to do better with her diet and exercise especially after her most recent hospitalization for anemia [facility] Work Phone: [phone] 143-630704-11-2025 Evaluation + Plan note* Assessment & Plan Note - Celia Al DO - 11/25/2024 7:31 AM EDTAssociated Problem(s): Persistent atrial fibrillation (Multi) Patient currently on carvedilol and Eliquis Stable [facility] Work Phone: [phone]) 804-904904-10-2025 Telephone encounter Note* Telephone Encounter - Veronica Pompa - 11/24/2024 7:05 PM EDT We have been unable to reach your patient to schedule their testing. Test Name: stress test 1st Attempt: 11/10 Rambushart message sent 2nd Attempt: 11/24 left voicemail 2 cancellations [facility] CenterHrwojk22-96-8461 Miscellaneous Notes* Telephone Encounter - Veronica Pompa - 11/24/2024 7:05 PM EDT We have been unable to reach your patient to schedule their testing. Test Name: stress test 1st Attempt: 11/10 Shahiyat message sent 2nd Attempt: 11/24 left voicemail 2 cancellations documented in this encounterSSt. John of God HospitalOzvcwk59-17-8469 Telephone encounter Note* Telephone Encounter - Blaire Zhu - 11/24/2024 8:33 AM EDT Pt is scheduled for a colonoscopy on 12-26-24 Please advise if cleared [facility] CenterEuiipg05-24-1159 Telephone encounter Note* Telephone Encounter - Leonarda Menjivar MA - 11/22/2024 2:26 PM EDT Called pt to notify results. LVM [facility] CenterWsjymf25-15-6761 Miscellaneous Notes* Telephone Encounter - Leonarda Menjivar MA - 11/22/2024 2:26 PM EDT Called pt to notify results. LVM * Telephone Encounter - Leonarda Menjivar MA - 11/18/2024 1:27 PM EDT Overnight oximetry report uploaded in media, please review. Thank you documented in this encounterSSt. John of God HospitalMzppqu91-30-2147 Telephone encounter Note* Telephone Encounter - SUJATA Negrete CNP - 11/21/2024 4:28 PM EDT PC to pt to review again review critical HS-troponin 22 and CK-MB WNL. These were previously ordered, but drawn incidentally when she had her CBC checked. Hgb remains low at 7.5, trend stable. Bill answered, not home to take call. He denies knowledge of anginal complaints. We reviewed upcoming appt with Dr. Jerome on 12/12/2024, and I have encouraged that she keep this appt. She should call sooner if having new or worsening symptoms. Note, we recently cancelled her stress test due to significant anemia with Hgb < 8. He was grateful for the call and will pass along the message. [facility] CenterEuhyxa11-75-8220 Miscellaneous Notes* Telephone Encounter - SUJATA Negrete CNP - 11/21/2024 4:28 PM EDT PC to pt to review again review critical HS-troponin 22 and CK-MB WNL. These were previously ordered, but drawn incidentally when she had her CBC checked. Hgb remains low at 7.5, trend stable. Bill answered, not home to take call. He denies knowledge of anginal complaints. We reviewed upcoming appt with Dr. Jerome on 12/12/2024, and I have encouraged that she keep this appt. She should call sooner if having new or worsening symptoms. Note, we recently cancelled her stress test due to significant anemia with Hgb < 8. He was grateful for the call and will pass along the message. * Telephone Encounter - Bob Guerra RN - 11/21/2024 8:37 AM EDT Provider discussed with pt * Telephone Encounter - Christianne Morales RN - 11/19/2024 10:54 AM EDT S: [facility] calling CAC d/t critical lab B: CAC RN spoke with Maia Mcgregor A: troponin T collected on 11/16 at 9:52 critical high at 22 result checked and verified. R: Spoke with Phi Mendoza CNP and advised of lab. Reason for Disposition Lab or radiology calling with CRITICAL test results Protocols used: PCP Call - No [id number]-QPARA-PW documented in this encounterSSt. John of God HospitalItraty18-89-6266 Telephone encounter Note* Telephone Encounter - Bob Guerra RN - 11/21/2024 8:37 AM EDT Provider discussed with pt [facility] CenterYtjjbb14-54-6394 Telephone encounter Note* Telephone Encounter - aNmita Flores PA-C - 11/20/2024 11:06 AM EDT Called [facility] back, they are paging again about the critical troponin of 22 from 11/16. This was already addressed by Gi yesterday (see telephone encounter). [facility] did not have documentation that call was received but will put a note in the chart now. Nothing further needed. [facility] Phone: 1(153) 312-480104-06-2025 Miscellaneous Notes* Telephone Encounter - Namita Flores PA-C - 11/20/2024 11:06 AM EDT Called [facility] back, they are paging again about the critical troponin of 22 from 11/16. This was already addressed by Gi yesterday (see telephone encounter). [facility] did not have documentation that call was received but will put a note in the chart now. Nothing further needed. * Telephone Encounter - Marques Suarez - 11/20/2024 10:58 AM EDT Name of caller requesting page:Kelli Phone Number of caller: [phone] Facility requesting page: [facility] Reason for Page: critical lab Provider paged: Namita Contreras Name of paged provider: CARLOS Page Placed to #: n/a Time Page was sent or provider contacted: 150 Page Content: Kelli from [employer] for critical lab Please call [phone] and ref [id number] * Telephone Encounter - Karly So - 11/19/2024 4:39 PM EDT Name of caller requesting page: Aubree Phone number of caller: [phone] Facility requesting page: [employer] Reason for page: Critical Labs Provider paged: Dr. Garcia Practice name of paged provider: CARLOS Page placed to #: SecureChat Time page was sent or provider contacted: 4:38pm Method of contact: SecureChat Page content: Aubree from [employer] calling to report critical labs for patient Rolando Peters. Please call Aubree at [phone] with reference number [id number], thank you. documented in this encounterSSt. John of God HospitalFwzckn21-80-1462 Telephone encounter Note* Telephone Encounter - Marques Suarez - 11/20/2024 10:58 AM EDT Name of caller requesting page:Kelli Phone Number of caller: [phone] Facility requesting page: [facility] Reason for Page: critical lab Provider paged: Namita Contreras Name of paged provider: Fitsistant Page Placed to #: n/a Time Page was sent or provider contacted: [phone] Page Content: Kelli from [employer] for critical lab Please call [phone] and ref [id number] [facility] CenterXtsmur50-54-1096 Telephone encounter Note* Telephone Encounter - Karly So - 11/19/2024 4:39 PM EDT Name of caller requesting page: Aubree Phone number of caller: [phone] Facility requesting page: [employer] Reason for page: Critical Labs Provider paged: Dr. Garcia Practice name of paged provider: CARLOS Page placed to #: SecureChat Time page was sent or provider contacted: 4:38pm Method of contact: SecureChat Page content: Aubree from [employer] calling to report critical labs for patient Rolando Peters. Please call Aubree at [phone] with reference number [id number], thank you. [facility] CenterFhjsxp25-20-7614 Telephone encounter Note* Telephone Encounter - Christianne Morales RN - 11/19/2024 10:54 AM EDT S: [facility] calling CAC d/t critical lab B: CAC RN spoke with Maia Mcgregor A: troponin T collected on 11/16 at 9:52 critical high at 22 result checked and verified. R: Spoke with Phi Mendoza CNP and advised of lab. Reason for Disposition Lab or radiology calling with CRITICAL test results Protocols used: PCP Call - No Ixrcap-PCFFB-TR [place] [id number] Telephone encounter Note* Telephone Encounter - Leonarda Menjivar MA - 11/18/2024 1:27 PM EDT Overnight oximetry report uploaded in media, please review. Thank you [address]Ckksro34-01-2311 Telephone encounter Note* Telephone Encounter - Nicole Pompa - 11/18/2024 12:06 PM EDT Called patient to let her know the stress test is canceled. Thanks [place] [id number] Miscellaneous Notes* Telephone Encounter - Nicole Pompa - 11/18/2024 12:06 PM EDT Called patient to let her know the stress test is canceled. Thanks * Telephone Encounter - Marcia Correa APRN - [place] - 11/17/2024 4:18 PM EDT PC to pt to review results. Hgb remains low at 7.5, but not worsening. WBC elevated. No symptoms of bleeding per pt. She is going to see PCP tomorrow. She is going to see GI next week to discuss colonoscopy. At this time because her Hgb < 8 I advise against a stress test. I would like her to keep her current appt later this month 12/12/[address] Jerome. She also mentioned the conversation she just had with Dash Hartman RN from our office regarding the left ankle edema. Her weight has gone from 135>132#. Improving. Advised compression socks and elevation as well. She was grateful for the call. documented in this [facility]04-04-2025 History of Present illness Narrative* Celia Al DO - 11/18/2024 11:40 AM EDT Patient: Rolando Peters : 1945 PCP: Celia Al DO Program: No linked episodes Rolando Peters is a 79 y.o. female presenting today for follow-up after being discharged from the hospital 8 days ago. The main problem requiring admission was symptomatic anemia. The discharge summary and/or Transitional Care Management documentation was reviewed. Medication reconciliation was performed as indicated via the [place] as Reviewed timestamp. Rolando Peters was contacted by Transitional Care Management services two days after her discharge.This encounter and supporting documentation was reviewed. The complexity of medical decision making for this patient's transitional care is moderate. Patient's discharge summary was copied in its entirety and is as follows: Hospitalist Discharge Summary Rolando Peters : 1945 Admit date: 11/08/2024 Discharge date: 11/11/2024 Admitting Physician: Nel Toledo MD Primary Care Physician: CELIA AL DO Visit Status: Inpatient Code Status: Full Code BRIEF HOSPITAL COURSE: 79-year-old female presented to the emergency department with increased shortness of breath, dizziness, and lightheadedness and was sent in by her cementer oil well Dr. Jerome. She has a past medical history of PAF on Eliqu, bilateral carotid artery stenosis, asthma, breast cancer in 1993 with right m astectomy, CKD, COPD/emphysema, CAD, DM, GERD, Hypertension, lung nodules, syncope in 2022 and hypercholesteremia, chest tube September of 2023, and bronchoscopy in 2023 . In ED, she was found to haveHgb 6.6, WBC 11, BNP 3683, ALT 49, AG 16, and CO2 18. She received one unit of pRBC in ED, and was admitted for medical management. She had a colonoscopy last year without any reported issues. The patient occasionally experiences epigastric pain with some lower abdominal pain, which she describes as gassy, and believes she has always been gassy. She endorses a 50-pound weight loss over the past year, which is being worked up by her PCP. Iron studies showed iron deficiency anemia - discussed patient getting iron tranfusion prior to discharge. The patient has a history of organizing pneumonia with numerous nodules that come and go and changein size, followed by pulmonology. She has been on a prolonged prednisone course for this condition and is currently being slowly weaned off. The patient reports slight edema in the left lower extremity, which has been present for the past couple of weeks. GI was consulted and EGD was preformed which showed no acute bleed, will need outpatient colonoscopy on discharge Acute, acute on chronic, unstable/uncontrolled chronic problems/discharge diagnoses: Severe Iron Deficiency Anemia 79-year-old female presented to the emergency department with hemoglobin of 6.66, which improved to7.2 the following morning. Patient reports increased shortness of breath, dizziness, and lightheadedness. Iron studies confirmed iron-deficient anemia, likely associated with positive occult blood. Physical examination revealed slightly pale conjunctiva. The patient also reports a 50- pound weight loss over the past year, which is being investigated by her PCP. 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 Currently on a prolonged prednisone course with ongoing taper. - Consult pulmonology to maintain current prednisone taper - 20 mg PO on discharge and to continue to follow up - Referred to Dr. Álvarez - from Dr Wren for reassessment of nodules, follow up outpatient - Continue Atorvaquone 1500 mg PO daily by pulmonology Abdominal Pain - resolved Patient reports occasional epigastric pain with some lower abdominal pain, described as gassy. Physical examination revealed epigastric tenderness on palpation and lower left quadrant abdominal tenderness. No abdominal distension or rigidity noted. EGD no acute findings, Left Lower Extremity Edema Patient reports slight edema in the left lower extremity for the past couple of weeks. Physical examination showed no calf tenderness, no bilateral enlargement compared to the other side, and strong pedal and radial pulses. 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 CAD Bilateral Carotid stenosis PAF on Eliquis hold eliquis Hypertension Hypercholesteremia - Amldopine 2.5 mg PO daily - Carvedilol 12.5 mg PO daily - Zetira 10 mg PO daily - Losartan 100 mg PO daily DM with hyperglycemia - restart metformin - - continue finerenone, liragliptin Moderate Malnutrition CKD stage 2 GERD - on PPI - BID for 30 days and then down to daily Past Medical History: Diagnosis Date Arrhythmia Arthritis Asthma Breast cancer (HCC) 1993 Right Breast(Mastectomy) Breast cancer (HCC) 2010 Left Breast(Simple Mastectomy, SLND) Chronic kidney disease COPD (chronic obstructive pulmonary disease) (HCC) Coronary artery disease Diabetes (HCC) Emphysema of lung (HCC) Within last year GERD (gastroesophageal reflux disease) High blood pressure Lung nodule -2022 Occlusion and stenosis of unspecified carotid artery Pure hypercholesterolemia Syncope and collapse 08/29/2022 Procedures: CXR3/7: Impression: FINDINGS AND IMPRESSION: SUPPORT DEVICES: None OSSEOUS STRUCTURES: Degenerative changes in the thoracic spine. HEART AND MEDIASTINUM: The cardiomediastinal silhouette appears unchanged from the prior exam. LUNGS AND PLEURA: Hyperinflated lungs with coarse interstitial markings likely related to chronic obstructive pulmonary disease. No consolidation, edema or sizable effusion. CT head 11/08: Impression: No evidence of an acute intracranial process. Hospital Course: See discharge diagnoses list above and medication adjustments below in med rec.Thepatient is discharged in improved and stable condition. Consults: IP CONSULT TO GI IP CONSULT TO PULMONOLOGY Discharge Instructions: Diet: Dietary Orders (From admission, onward) Start Ordered 11/10/24 1207 Adult diet Regular Diet effective now Question: Diet type Answer: Regular 11/10/24 1206 11/09/24 1110 Supplement:Lunch; Chocolate Ensure High Protein Until discontinued Question Answer Comment Frequency Lunch Select supplement: Chocolate Ensure High Protein 11/09/24 1109 Activity: as tolerated Recommended Outpatient Tests: Disposition: Patient discharged in stable condition to Home. Greater than 31 minutes spent discharging the patient and coming up with patient discharge plan. Vitals: BP (!) 144/46 (BP Location: Left arm, Patient Position: Sitting) Pulse 68 Temp 36.9 C (98.5 F) (Temporal) Resp 16 Ht 5' 7 (1.702 m) Wt 133 lb 13.1 oz (60.7 kg) SpO2 95% BMI 20.96 kg/m Pulse Ox: SpO2 Av.3 % Min: 94 % Max: 97 % Supplemental O2: Physical Exam - General: Appears in no acute distress, slightly pale conjunctiva. - Head, Eyes, Ears, Nose, Throat: Normal dentition. Moist mucus membranes, - Cardiovascular: Murmur appreciated left sternal and right sternal border. Regular rate and rhythm - Respiratory: Lungs clear to bases bilaterally. - Abdomen: No tenderness to palpations, - Extremities: Slight edema bilaterally. Strong pedal and radial pulses. - Skin: warm to palpaiton, LABS: Recent Labs 11/09/24 0501 11/10/24 0110 11/11/24 0508 NA 138 135* 139 K 3.6 4.3 3.9 CL 107 105 108* CO2 21* 20* 22* BUN 19 16 20 CREATININE 0.77 0.80 0.82 GLUCOSE 118* 229* 138* CALCIUM 7.8* 8.3* 8.5* Recent Labs 11/08/24 1419 11/08/24200711/10/24 0110 11/10/24 0817 11/11/24 0508 WBC 11.0* -- 8.1 -- 9.6 RBC 2.39* -- 2.68* -- 2.72* HGB 6.6* < > 7.4* 7.4* 7.5* HCT 21.3* < > 23.1* 23.2* 23.5* MCV 89.1 -- 86.2 -- 86.4 MCH 27.6 -- 27.6 -- 27.6 MCHC 31.0 -- 32.0 -- 31.9 RDW 16.0* -- 15.8* -- 15.9* PLT 298 -- 276 -- 270 MPV 8.7* -- 9.1 -- 8.9* < > = values in this interval not displayed. Discharge Medications: Medication List START taking these medications pantoprazole 40 MG EC tablet Commonly known as: ProtoNix Take 1 tablet (40 mg) by mouth 2 times daily for 30 days, THEN 1 tablet (40 mg) every morning (before breakfast). Do not crush, chew, or split.. Start taking on: November 11, 2024 CHANGE how you take these medications predniSONE 20 MG tablet Commonly known as: Deltasone Take 1 tablet (20 mg) by mouth daily for 10 days. Start taking on: November 12, 2024 What changed: medication strength how much to take how to take this when to take this additional instructions CONTINUE taking these medications albuterol 108 (90 Base) MCG/ACT inhaler Commonly known as: Ventolin HFA Inhale 2 puffs every 4 hours as needed for wheezing or shortness of breath. amLODIPine 2.5 MG tablet Commonly known as: Norvasc Take 1 tablet (2.5 mg) by mouth daily. apixaban 5 MG tablet Commonly known as: Eliquis Take 1 tablet (5 mg) by mouth 2 times daily. atovaquone 750 MG/5ML suspension Commonly known as: Mepron Take 10 mL (1,500 mg) by mouth daily. B-12 1000 MCG capsule carvedilol 12.5 MG tablet Commonly known as: Coreg Take 1 tablet (12.5 mg) by mouth 2 times daily (with meals). cholecalciferol 50 MCG (2000 UT) tablet Commonly known as: Vitamin D-3 Contour Next Test test strip Generic drug: glucose blood ezetimibe 10 MG tablet Commonly known as: Zetia Take 1 tablet (10 mg) by mouth in the morning. fluticasone 0.05 % cream Commonly known as: Cutivate furosemide 20 MG tablet Commonly known as: Lasix Take 1 tablet (20 mg) by mouth every other day. Icosapent Ethyl 1 g capsule Commonly known as: Vascepa Take 2 capsules (2 g) by mouth 2 times daily (with meals). Jentadueto XR 2.5-1000 MG per 24 hr tablet Generic drug: linaGLIPtin-metFORMIN ER Kerendia 10 MG tablet Generic drug: Finerenone losartan 100 MG tablet Commonly known as: Cozaar Take 1 tablet (100 mg) by mouth daily. MULTIPLE VITAMINS/WOMENS PO rosuvastatin 10 MG tablet Commonly known as: Crestor sertraline 25 MG tablet Commonly known as: Zoloft Take 1 tablet (25 mg) by mouth daily. Spiriva Respimat 2.5 MCG/ACT inhaler Generic drug: tiotropium Inhale 2 puffs daily. STOP taking these medications lansoprazole [address] capsule Commonly known as: Prevacid Where to Get Your Medications These medications were sent to [facility] - [facility] [address] [facility] [address] [facility] [id number] atovaquone 750 MG/5ML suspension pantoprazole 40 MG EC tablet predniSONE 20 MG tablet Information about where to get these medications is not yet available Ask your nurse or doctor about these medications furosemide 20 MG tablet Recommended Follow-up: Celia Al DO [address] [facility], [place] [address] [facility] [phone] Call Please call and schedule an outpatient appointment for follow up. Stan Jama DO [address] [facility] [phone] Call Please call and schedule an appointment to get your outpatient colonscopy Review of Systems Family History Problem Relation Name Age of Onset Ovarian cancer Mother Heart attack Father Other (auto immune) Sister Mireya No Known Problems Sister Angie Arthritis Other FH Heart murmur Other FH Hypertension Other FH Leukemia Other FH Breast cancer Other FH Female Ovarian cancer Other FH No data recorded No follow-ups on file. Objective BP 118/50 (BP Location: Left arm, Patient Position: Sitting) Pulse 103 Temp 36.5 C (97.7 F) Wt 60.3 kg (133 lb) SpO2 100% BMI 20.83 kg/m BSA Body surface area is 1.69 meters squared. Physical Exam Constitutional: General: She is not in acute distress. Appearance: Normal appearance. She is not toxic-appearing. HENT: Head: Normocephalic. Right Ear: Tympanic membrane, ear canal and external ear normal. Left Ear: Tympanic membrane, ear canal and external ear normal. Eyes: Conjunctiva/sclera: Conjunctivae normal. Pupils: Pupils are equal, round, and reactive to light. Cardiovascular: Rate and Rhythm: Normal rate and regular rhythm. Pulses: Normal pulses. Heart sounds: Normal heart sounds. Pulmonary: Effort: No respiratory distress. Breath sounds: Rales present. No wheezing or rhonchi. Comments: Crackles bilateral lower lungs Abdominal: General: Bowel sounds are normal. There is no distension. Palpations: Abdomen is soft. Tenderness: There is no abdominal tenderness. Musculoskeletal: General: No swelling or tenderness. Skin: Findings: No lesion or rash. Neurological: General: No focal deficit present. Mental Status: She is alert and oriented to person, place, and time. Mental status is at baseline. Gait: Gait normal. Psychiatric: Mood and Affect: Mood normal. Behavior: Behavior normal. Thought Content: Thought content normal. Judgment: Judgment normal. Orders Only on 11/16/2024 Component Date Value Ref Range Status CHOLESTEROL, TOTAL 11/16/2024 129 <200 mg/dL Final HDL CHOLESTEROL 11/16/2024 57 > OR = 50 mg/dL Final TRIGLYCERIDES 11/16/2024 94 <150 mg/dL Final LDL-CHOLESTEROL 11/16/2024 54 mg/dL (calc) Final Comment: Reference range: <100 Desirable range <100 mg/dL for primary prevention; <70 mg/dL for patients with CHD or diabetic patients with > or = 2 CHD risk factors. LDL-C is now calculated using the Jefferson calculation, which is a validated novel method providing better accuracy than the Friedewald equation in the estimation of LDL-C. Balbir OLSON et al. SARAH. 2013;310(19): 8056-4582 (http://education.Bluetector.Kmsocial/faq/CBX113) CHOL/HDLC RATIO 11/16/2024 2.3 <5.0 (calc) Final NON HDL CHOLESTEROL 11/16/2024 72 <130 mg/dL (calc) Final Comment: For patients with diabetes plus 1 major ASCVD risk factor, treating to a non-HDL-C goal of <100 mg/dL (LDL-C of <70 mg/dL) is considered a therapeutic option. GLUCOSE 11/16/2024 91 65 - 99 mg/dL Final Comment: Fasting reference interval UREA NITROGEN (BUN) 11/16/2024 23 7 - 25 mg/dL Final CREATININE 11/16/2024 0.93 0.60 - 1.00 mg/dL Final EGFR 11/16/2024 63 > OR = 60 mL/min/1.73m2 Final SODIUM 11/16/2024 139 135 - 146 mmol/L Final POTASSIUM 11/16/2024 4.0 3.5 - 5.3 mmol/L Final CHLORIDE 11/16/2024 106 98 - 110 mmol/L Final CARBON DIOXIDE 11/16/2024 24 20 - 32 mmol/L Final ELECTROLYTE BALANCE 11/16/2024 9 7 - 17 mmol/L (calc) Final CALCIUM 11/16/2024 8.7 8.6 - 10.4 mg/dL Final PROTEIN, TOTAL 11/16/2024 5.4 (L) 6.1 - 8.1 g/dL Final ALBUMIN 11/16/2024 3.6 3.6 - 5.1 g/dL Final BILIRUBIN, TOTAL 11/16/2024 0.6 0.2 - 1.2 mg/dL Final ALKALINE PHOSPHATASE 11/16/2024 43 37 - 153 U/L Final AST 11/16/2024 12 10 - 35 U/L Final ALT 11/16/2024 18 6 - 29 U/L Final WHITE BLOOD CELL COUNT 11/16/2024 12.4 (H) 3.8 - 10.8 Thousand/uL Final RED BLOOD CELL COUNT 11/16/2024 2.68 (L) 3.80 - 5.10 Million/uL Final HEMOGLOBIN 11/16/2024 7.4 (L) 11.7 - 15.5 g/dL Final HEMATOCRIT 11/16/2024 24.1 (L) 35.0 - 45.0 % Final MCV 11/16/2024 89.9 80.0 - 100.0 fL Final MCH 11/16/2024 27.6 27.0 - 33.0 pg Final MCHC 11/16/2024 30.7 (L) 32.0 - 36.0 g/dL Final Comment: For adults, a slight decrease in the calculated MCHC value (in the range of 30 to 32 g/dL) is most likely not clinically significant; however, it should be interpreted with caution in correlation with other red cell parameters and the patient's clinical condition. RDW 11/16/2024 15.1 (H) 11.0 - 15.0 % Final PLATELET COUNT 11/16/2024 280 140 - 400 Thousand/uL Final MPV 11/16/2024 9.5 7.5 - 12.5 fL Final ABSOLUTE NEUTROPHILS 11/16/2024 10,143 (H) 1,500 - 7,800 cells/uL Final ABSOLUTE LYMPHOCYTES 11/16/2024 1,327 850 - 3,900 cells/uL Final ABSOLUTE MONOCYTES 11/16/2024 856 200 - 950 cells/uL Final ABSOLUTE EOSINOPHILS 11/16/2024 50 15 - 500 cells/uL Final ABSOLUTE BASOPHILS 11/16/2024 25 0 - 200 cells/uL Final NEUTROPHILS 11/16/2024 81.8 % Final LYMPHOCYTES 11/16/2024 10.7 % Final MONOCYTES 11/16/2024 6.9 % Final EOSINOPHILS 11/16/2024 0.4 % Final BASOPHILS 11/16/2024 0.2 % Final TSH W/REFLEX TO FT4 11/16/2024 1.13 0.40 - 4.50 mIU/L Final VITAMIN D,25-OH,TOTAL,IA 11/16/2024 27 (L) 30 - 100 ng/mL Final Comment: Vitamin D Status 25-OH Vitamin D: Deficiency: <20 ng/mL Insufficiency: 20 - 29 ng/mL Optimal: > or = 30 ng/mL For 25-OH Vitamin D testing on patients on D2-supplementation and patients for whom quantitation of D2 and D3 fractions is required, the QuestAssureD(TM) 25-OH VIT D, (D2,D3), LC/MS/MS is recommended: order code 39384 (patients >2yrs). See Note 1 Note 1 For additional information, please refer to http://education.Bluetector.Kmsocial/faq/WSU667 (This link is being provided for informational/ educational purposes only.) HEMOGLOBIN A1c 11/16/2024 6.9 (H) <5.7 % of total Hgb Final Comment: For someone without known diabetes, a hemoglobin A1c value of 6.5% or greater indicates that they may have diabetes and this should be confirmed with a follow-up test. For someone with known diabetes, a value <7% indicates that their diabetes is well controlled and a value greater than or equal to 7% indicates suboptimal control. A1c targets should be individualized based on duration of diabetes, age, comorbid conditions, and other considerations. Currently, no consensus exists regarding use of hemoglobin A1c for diagnosis of diabetes for children. eAG (mg/dL) 11/16/2024 151 mg/dL Final eAG (mmol/L) 11/16/2024 8.4 mmol/L Final Lab Requisition on 11/07/2024 Component Date Value Ref Range Status Troponin I, High Sensitivity 11/07/2024 14 (H) 0 - 13 ng/L Final Lab on 08/02/2024 Component Date Value Ref Range Status Glucose 08/02/2024 103 (H) 74 - 99 mg/dL Final Sodium 08/02/2024 137 136 - 145 mmol/L Final Potassium 08/02/2024 4.9 3.5 - 5.3 mmol/L Final Chloride 08/02/2024 106 98 - 107 mmol/L Final Bicarbonate 08/02/2024 22 21 - 32 mmol/L Final Anion Gap 08/02/2024 14 10 - 20 mmol/L Final Urea Nitrogen 08/02/2024 15 6 - 23 mg/dL Final Creatinine 08/02/2024 1.01 0.50 - 1.05 mg/dL Final eGFR 08/02/2024 57 (L) >60 mL/min/1.73m*2 Final Calculations of estimated GFR are performed using the 2020 CKD-EPI Study Refit equation without therace variable for the IDMS-Traceable creatinine methods. https://jasn.asnjournals.org/content/early/ASN.7882379134 Calcium 08/02/2024 8.9 8.6 - 10.6 mg/dL Final Albumin 08/02/2024 4.0 3.4 - 5.0 g/dL Final Alkaline Phosphatase 08/02/2024 46 33 - 136 U/L Final Total Protein 08/02/2024 6.5 6.4 - 8.2 g/dL Final AST 08/02/2024 26 9 - 39 U/L Final Bilirubin, Total 08/02/2024 0.5 0.0 - 1.2 mg/dL Final ALT 08/02/2024 24 7 - 45 U/L Final Patients treated with Sulfasalazine may generate falsely decreased results for ALT. Thyroid Stimulating Hormone 08/02/2024 1.42 0.44 - 3.98 mIU/L Final Magnesium 08/02/2024 1.99 1.60 - 2.40 mg/dL Final Phosphorus 08/02/2024 4.8 2.5 - 4.9 mg/dL Final The performance characteristics of phosphorus testing in heparinized plasma have been validated by the individual laboratory site where testing is performed. Testing on heparinized plasma is not approved by the FDA; however, such approval is not necessary. Vitamin B12 08/02/2024 207 (L) 211 - 911 pg/mL Final Folate, Serum 08/02/2024 23.5 >5.0 ng/mL Final Methylmalonic Acid, S 08/02/2024 0.25 0.00 - 0.40 umol/L Final INTERPRETIVE INFORMATION: MMA Serum/Plasma, Vitamin B12 Status This test was developed and its performance characteristics determined by [facility]. It has not been cleared or approved by the US Food and Drug Administration. This test was performed in a CLIA certified laboratory and is intended for clinical purposes. Performed By: [facility] [address] [place] [id number] Needle Punch Operator: Rosalee Upton MD, PhD CLIA Number: [id number] Iron 08/02/2024 45 35 - 150 ug/dL Final UIBC 08/02/2024 354 110 - 370 ug/dL Final TIBC 08/02/2024 399 240 - 445 ug/dL Final % Saturation 08/02/2024 11 (L) 25 - 45 % Final Ferritin 08/02/2024 71 8 - 150 ng/mL Final Lab on 06/13/2024 Component Date Value Ref Range Status Albumin, Urine Random 06/13/2024 1,587.3 Not established mg/L Final Creatinine, Urine Random 06/13/2024 67.3 20.0 - 320.0 mg/dL Final Albumin/Creatinine Ratio 06/13/2024 2,358.5 (H) <30.0 ug/mg Creat Final Glucose 06/13/2024 137 (H) 74 - 99 mg/dL Final Sodium 06/13/2024 137 136 - 145 mmol/L Final Potassium 06/13/2024 4.6 3.5 - 5.3 mmol/L Final Chloride 06/13/2024 103 98 - 107 mmol/L Final Bicarbonate 06/13/2024 22 21 - 32 mmol/L Final Anion Gap 06/13/2024 17 10 - 20 mmol/L Final Urea Nitrogen 06/13/2024 16 6 - 23 mg/dL Final Creatinine 06/13/2024 1.03 0.50 - 1.05 mg/dL Final eGFR 06/13/2024 56 (L) >60 mL/min/1.73m*2 Final Calculations of estimated GFR are performed using the 2020 CKD-EPI Study Refit equation without therace variable for the IDMS-Traceable creatinine methods. https://jasn.asnjournals.org/content//ASN.7995414272 Calcium 06/13/2024 8.7 8.6 - 10.6 mg/dL Final Albumin 06/13/2024 4.0 3.4 - 5.0 g/dL Final Alkaline Phosphatase 06/13/2024 49 33 - 136 U/L Final Total Protein 06/13/2024 6.2 (L) 6.4 - 8.2 g/dL Final AST 06/13/2024 23 9 - 39 U/L Final Bilirubin, Total 06/13/2024 0.5 0.0 - 1.2 mg/dL Final ALT 06/13/2024 36 7 - 45 U/L Final Patients treated with Sulfasalazine may generate falsely decreased results for ALT. Hemoglobin A1C 06/13/2024 5.5 See comment % Final Estimated Average Glucose 06/13/2024 111 Not Established mg/dL Final WBC 06/13/2024 5.3 4.4 - 11.3 x10*3/uL Final nRBC 06/13/2024 0.0 0.0 - 0.0 /100 WBCs Final RBC 06/13/2024 3.35 (L) 4.00 - 5.20 x10*6/uL Final Hemoglobin 06/13/2024 9.7 (L) 12.0 - 16.0 g/dL Final Hematocrit 06/13/2024 30.8 (L) 36.0 - 46.0 % Final MCV 06/13/2024 92 80 - 100 fL Final MCH 06/13/2024 29.0 26.0 - 34.0 pg Final MCHC 06/13/2024 31.5 (L) 32.0 - 36.0 g/dL Final RDW 06/13/2024 13.0 11.5 - 14.5 % Final Platelets 06/13/2024 204 150 - 450 x10*3/uL Final Neutrophils % 06/13/2024 74.1 40.0 - 80.0 % Final Immature Granulocytes %, Automated 06/13/2024 0.4 0.0 - 0.9 % Final Immature Granulocyte Count (IG) includes promyelocytes, myelocytes and metamyelocytes but does not include bands. Percent differential counts (%) should be interpreted in the context of the absolute cell counts (cells/UL). Lymphocytes % 06/13/2024 14.1 13.0 - 44.0 % Final Monocytes % 06/13/2024 7.7 2.0 - 10.0 % Final Eosinophils % 06/13/2024 2.4 0.0 - 6.0 % Final Basophils % 06/13/2024 1.3 0.0 - 2.0 % Final Neutrophils Absolute 06/13/2024 3.93 1.60 - 5.50 x10*3/uL Final Percent differential counts (%) should be interpreted in the context of the absolute cell counts (cells/uL). Immature Granulocytes Absolute, Au* 06/13/2024 0.02 0.00 - 0.50 x10*3/uL Final Lymphocytes Absolute 06/13/2024 0.75 (L) 0.80 - 3.00 x10*3/uL Final Monocytes Absolute 06/13/2024 0.41 0.05 - 0.80 x10*3/uL Final Eosinophils Absolute 06/13/2024 0.13 0.00 - 0.40 x10*3/uL Final Basophils Absolute 06/13/2024 0.07 0.00 - 0.10 x10*3/uL Final WERO 06/13/2024 Negative Negative Final The Antinuclear Antibody (WERO) test was performed using indirect immunofluorescence assay with HEp-2 cells slide. Rheumatoid Factor 06/13/2024 <10 0 - 15 IU/mL Final Citrulline Antibody, IgG 06/13/2024 <1 <3 U/mL Final NEGATIVE < 3 U/ML POSITIVE >=3 U/ML ANCA IFA Titer 06/13/2024 <1:20 <1:20 Final ANCA IFA Pattern 06/13/2024 None Detected None Detected Final INTERPRETIVE INFORMATION: ANCA IFA Pattern Neutrophil Cytoplasmic Antibodies (C-ANCA = granular cytoplasmic staining, P-ANCA = perinuclear staining) are found in the serum of over 90 percent of patients with certain necrotizing systemic vasculitides, and usually in less than 5 percent of patients with collagen vascular disease or arthritis. Performed By: [facility] [address] [place] [address] Needle Punch Operator: Rosalee Upton MD, PhD CLIA Number: [id number] SSA-52 (Ro52) (YOCASTA) Antibody, IgG 06/13/2024 2 0 - 40 AU/mL Final INTERPRETIVE INFORMATION: SSA-52 (Ro52) (YOCASTA) Antibody, IgG 29 AU/mL or Less ............. Negative 30 - 40 AU/mL ................ Equivocal 41 AU/mL or Greater .......... Positive SSA-52 (Ro52) and/or SSA-60 (Ro60) antibodies are associated with a diagnosis of Sjogren syndrome, systemic lupus erythematosus (SLE), and systemic sclerosis. SSA-52 antibody overlaps significantly with the major SSc-related antibodies. SSA-52 (Ro52) antibody occurs frequently in patients with inflammatory myopathies, often in the presence of interstitial lung disease. SSA-60 (Ro60) (YOCASTA) Antibody, IgG 06/13/2024 0 0 - 40 AU/mL Final REFERENCE INTERVAL: SSA-60 (Ro60) (YOCASTA) Antibody, IgG 29 AU/mL or Less ............. Negative 30 - 40 AU/mL ................ Equivocal 41 AU/mL or Greater .......... Positive Shannon/CUFF TURNER MACHINE OPERATOR (YOCASTA) Ab, IgG 06/13/2024 2 0 - 19 Units Final INTERPRETIVE INFORMATION: Shannon/CUFF TURNER MACHINE OPERATOR (YOCASTA) Antibody, IgG 19 Units or Less ............. Negative 20 to 39 Units ............... Weak Positive 40 to 80 Units ............... Moderate Positive 81 Units or greater .......... Strong Positive Shannon/CUFF TURNER MACHINE OPERATOR antibodies are frequently seen in patients with mixed connective tissue disease (MCTD) and are also associated with other systemic autoimmune rheumatic diseases (SARDs) such as systemic lupus erythematosus (SLE), systemic sclerosis, and myositis. Antibodies targeting the Shannon/CUFF TURNER MACHINE OPERATOR antigenic complex also recognize Shannon antigens, therefore, the Shannon antibody response must be considered when interpreting these results. Neelima-1 (Histidyl-tRNA Synthetase) Ab* 06/13/2024 1 0 - 40 AU/mL Final INTERPRETIVE INFORMATION: Neelima-1 Antibody, IgG 29 AU/mL or less.........Negative 30-40 AU/mL..............Equivocal 41 AU/mL or greater......Positive Presence of Neelima-1 (antihistidyl transfer RNA [t-RNA] synthetase) antibody is associated with polymyositis and may also be seen in patients with dermatomyositis. Neelima-1 antibody is associated with pulmonary involvement (interstitial lung disease), Raynaud phenomenon, arthritis, and motorboat mechanic helper's hands (implicated in antisynthetase syndrome). PL-12 (alanyl-tRNA synthetase) Ant* 06/13/[address]-7 (threonyl-tRNA synthetase) An* 06/13/2024 Negative Negative Final EJ (glycyl-tRNA synthetase) Antibo* 06/13/2024 Negative Negative Final OJ (isoleucyl-tRNA synthetase) Ant* 06/13/2024 Negative Negative Final SRP (Signal Recognition Particle) * 06/13/2024 Negative Negative Final Ku Antibody 06/13/2024 Negative Negative Final PM/Scl 100 Antibody, IgG 06/13/2024 Negative Negative Final INTERPRETIVE INFORMATION: PM/Scl-100 Antibody, IgG by Immunoblot The presence of PM/Scl-100 IgG antibody along with a positive WERO IFA nucleolar pattern is associated with connective tissue diseases such as polymyositis (PM), dermatomyositis (DM), systemic sclerosis (SSc), and polymyositis/systemic sclerosis overlap syndrome. The clinical relevance of PM/Scl-100 IgG antibody with a negative WERO IFA nucleolar pattern is unknown. PM/Scl-100 is the main target epitope of the PM/Scl complex, although antibodies to other targets not detected by this assay may occur. This test was developed and its performance characteristics determined by [facility]. It has not been cleared or approved by the US Food and Drug Administration. This test was performed in a CLIA certified laboratory and is intended for clinical purposes. Fibrillarin (U3 CUFF TURNER MACHINE OPERATOR) Ab, IgG 06/13/2024 Negative Negative Final Comment: Interpretive Information: Fibrillarin (U3 CUFF TURNER MACHINE OPERATOR) Antibody, IgG The presence of fibrillarin (U3-CUFF TURNER MACHINE OPERATOR) IgG antibodies in association with an WERO IFA nucleolar pattern is suggestive of systemic sclerosis (SSc). In SSc, these antibodies are associated with distinct clinical features, such as younger age at disease onset, frequent internal organ involvement (pulmonary hypertension, myositis and renal disease). Fibrillarin antibodies are detected more frequently in patients with SSc compared to other ethnic groups. Strong correlation with WERO IFA results is recommended. In a multi-ethnic cohort of SSc patients (n=98), U3-CUFF TURNER MACHINE OPERATOR antibodies detected by immunoblot had an agreement of 98.9 percent with the gold standard immunoprecipitation (IP) assay. Approximately 71 percent (5/7) of the borderline U3-CUFF TURNER MACHINE OPERATOR results with WERO nucleolar pattern in this cohort were IP negative. This test was developed and its performance characteristics determined by [facility]. It has not been cleared or approved by the US Food and Drug Administration. This test was performed in a CLIA certified laboratory and is intended for clinical purposes. Performed By: [facility] [address] [place] [address] Needle Punch Operator: Rosalee Upton MD, PhD IA Number: [id number] Mi-2 (nuclear helicase protein) An* 06/13/2024 Negative Negative Final P155/140 Antibody 06/13/2024 Negative Negative Final TIF-1 gamma (155 kDa) Ab 06/13/2024 Negative Negative Final SAE1 (SUMO activating enzyme) Ab 06/13/2024 Negative Negative Final MDA5 (CADM-140) Ab 06/13/2024 Negative Negative Final NXP2 (Nuclear matrix protein-2) Ab 06/13/2024 Negative Negative Final Myositis Panel Interpretive Data 06/13/2024 See Note Final Comment: INTERPRETIVE INFORMATION: Extended Myositis Panel If present, myositis-specific antibodies (MSA) are specific for myositis, and may be useful in establishing diagnosis as well as prognosis. MSAs are generally regarded as mutually exclusive with rare exceptions; the occurrence of two or more MSAs should be carefully evaluated in the context of patient's clinical presentation. Myositis-associated antibodies (MAA) may be found in patients with CTD including overlap syndromes, and are generally not specific for myositis. The following table will help in identifying the association of any antibodies found as either MSAs or Willa. Antibody Specificity . . . . . . . . . . . . MSA . . . . MAA SSA 52 (Ro) (YOCASTA) Antibody IgG . . . . . . . . . . . . . X SSA 60 (Ro) (YOCASTA) Antibody IgG . . . . . . . . . . . . . X Shannon/CUFF TURNER MACHINE OPERATOR (YOCASTA) Ab, IgG . . . . . . . . . . . . . . . . X Neelima-1 (histidyl-tRNA synthetase) Ab, IgG . . X PL-12 (alanyl-tRNA synthetase) Antibody . . X PL-7 (threonyl-tRNA synthetase) Antibody . . X EJ (glycyl-tRNA synthetase) Antibody . . . . X OJ (isoleucyl-tRNA synthetase) Antibody . . X SRP (Signal Recognition Particle) Ab . . . . X Ku Antibody . . . . . . . . . . . . . . . . . . . . . . X PM/SCL 100 Antibody, IgG . . . . . . . . . . . . . . . . X Fibrillarin (U3 CUFF TURNER MACHINE OPERATOR) Ab, IgG . . . . . . . . . . . . . . X Mi-2 (nuclear helicase protein) Antibody . . X P155/140 Antibody . . . . . . . . . . . . . X TIF-1 gamma (155 kDa) Ab . . . . . . . . . . X SAE1 (SUMO activating enzyme) Ab . . . . . . X MDA5 (CADM-140) Ab . . . . . . . . . . . . X NXP2 (Nuclear matrix proten-2)Ab . . . . . . X This test was developed and its performance characteristics determined by [facility]. It has not been cleared or approved by the US Food and Drug Administration. This test was performed in a CLIA certified laboratory and is intended for clinical purposes. Aspergillus fumigatus #1 Ab, Preci* 06/13/2024 None Detected None Detected Final Aspergillus fumigatus #6 Ab, Preci* 06/13/2024 None Detected None Detected Final Aureobasidium pullulans Ab, Precip* 06/13/2024 None Detected None Detected Final [place] Serum Ab, Precipitin 06/13/2024 None Detected None Detected Final Micropolyspora Faeni Ab, Precipitin 06/13/2024 None Detected None Detected Final Testing includes antibodies directed at Aureobasidium pullulans, Aspergillus fumigatus #1, Aspergillus fumigatus #6, Micropolyspora faeni, and [place] Serum. Performed By: [facility] [address] [place] [id number] Needle Punch Operator: Rosalee Upton MD, PhD CLIA Number: [id number] Anti-SSA 06/13/2024 <0.2 <1.0 AI Final < 1.0 = NEGATIVE >=1.0 = POSITIVE Anti-SSB 06/13/2024 <0.2 <1.0 AI Final < 1.0 = NEGATIVE >=1.0 = POSITIVE Lab on 05/02/2024 Component Date Value Ref Range Status Glucose 05/02/2024 117 (H) 74 - 99 mg/dL Final Sodium 05/02/2024 139 136 - 145 mmol/L Final Potassium 05/02/2024 4.4 3.5 - 5.3 mmol/L Final Chloride 05/02/2024 105 98 - 107 mmol/L Final Bicarbonate 05/02/2024 24 21 - 32 mmol/L Final Anion Gap 05/02/2024 14 10 - 20 mmol/L Final Urea Nitrogen 05/02/2024 20 6 - 23 mg/dL Final Creatinine 05/02/2024 1.13 (H) 0.50 - 1.05 mg/dL Final eGFR 05/02/2024 50 (L) >60 mL/min/1.73m*2 Final Calculations of estimated GFR are performed using the 2020 CKD-EPI Study Refit equation without therace variable for the IDMS-Traceable creatinine methods. https://jasn.asnjournals.org/content//ASN.4835440085 Calcium 05/02/2024 8.8 8.6 - 10.6 mg/dL Final Phosphorus 05/02/2024 4.2 2.5 - 4.9 mg/dL Final The performance characteristics of phosphorus testing in heparinized plasma have been validated by the individual laboratory site where testing is performed. Testing on heparinized plasma is not approved by the FDA; however, such approval is not necessary. Albumin 05/02/2024 3.8 3.4 - 5.0 g/dL Final Lab on 04/19/2024 Component Date Value Ref Range Status Glucose 04/19/2024 91 74 - 99 mg/dL Final Sodium 04/19/2024 137 136 - 145 mmol/L Final Potassium 04/19/2024 4.9 3.5 - 5.3 mmol/L Final Chloride 04/19/2024 104 98 - 107 mmol/L Final Bicarbonate 04/19/2024 22 21 - 32 mmol/L Final Anion Gap 04/19/2024 16 10 - 20 mmol/L Final Urea Nitrogen 04/19/2024 14 6 - 23 mg/dL Final Creatinine 04/19/2024 1.08 (H) 0.50 - 1.05 mg/dL Final eGFR 04/19/2024 53 (L) >60 mL/min/1.73m*2 Final Calculations of estimated GFR are performed using the 2020 CKD-EPI Study Refit equation without therace variable for the IDMS-Traceable creatinine methods. https://jasn.asnjournals.org/content/early//ASN.1134302946 Calcium 04/19/2024 8.7 8.6 - 10.6 mg/dL Final Albumin 04/19/2024 3.9 3.4 - 5.0 g/dL Final Alkaline Phosphatase 04/19/2024 53 33 - 136 U/L Final Total Protein 04/19/2024 6.2 (L) 6.4 - 8.2 g/dL Final AST 04/19/2024 33 9 - 39 U/L Final Bilirubin, Total 04/19/2024 0.4 0.0 - 1.2 mg/dL Final ALT 04/19/2024 48 (H) 7 - 45 U/L Final Patients treated with Sulfasalazine may generate falsely decreased results for ALT. WBC 04/19/2024 7.0 4.4 - 11.3 x10*3/uL Final nRBC 04/19/2024 0.0 0.0 - 0.0 /100 WBCs Final RBC 04/19/2024 3.12 (L) 4.00 - 5.20 x10*6/uL Final Hemoglobin 04/19/2024 9.4 (L) 12.0 - 16.0 g/dL Final Hematocrit 04/19/2024 31.6 (L) 36.0 - 46.0 % Final MCV 04/19/2024 101 (H) 80 - 100 fL Final MCH 04/19/2024 30.1 26.0 - 34.0 pg Final MCHC 04/19/2024 29.7 (L) 32.0 - 36.0 g/dL Final RDW 04/19/2024 13.6 11.5 - 14.5 % Final Platelets 04/19/2024 241 150 - 450 x10*3/uL Final Lab on 03/31/2024 Component Date Value Ref Range Status Glucose 03/31/2024 148 (H) 74 - 99 mg/dL Final Sodium 03/31/2024 137 136 - 145 mmol/L Final Potassium 03/31/2024 4.8 3.5 - 5.3 mmol/L Final Chloride 03/31/2024 106 98 - 107 mmol/L Final Bicarbonate 03/31/2024 20 (L) 21 - 32 mmol/L Final Anion Gap 03/31/2024 16 10 - 20 mmol/L Final Urea Nitrogen 03/31/2024 20 6 - 23 mg/dL Final Creatinine 03/31/2024 1.37 (H) 0.50 - 1.05 mg/dL Final eGFR 03/31/2024 40 (L) >60 mL/min/1.73m*2 Final Calculations of estimated GFR are performed using the 2020 CKD-EPI Study Refit equation without therace variable for the IDMS-Traceable creatinine methods. https://jasn.asnjournals.org/content/early//ASN.2341188038 Calcium 03/31/2024 9.0 8.6 - 10.6 mg/dL Final Albumin 03/31/2024 3.6 3.4 - 5.0 g/dL Final Alkaline Phosphatase 03/31/2024 44 33 - 136 U/L Final Total Protein 03/31/2024 5.6 (L) 6.4 - 8.2 g/dL Final AST 03/31/2024 21 9 - 39 U/L Final Bilirubin, Total 03/31/2024 0.3 0.0 - 1.2 mg/dL Final ALT 03/31/2024 26 7 - 45 U/L Final Patients treated with Sulfasalazine may generate falsely decreased results for ALT. Lab on 03/10/2024 Component Date Value Ref Range Status Glucose 03/10/2024 90 74 - 99 mg/dL Final Sodium 03/10/2024 139 136 - 145 mmol/L Final Potassium 03/10/2024 4.5 3.5 - 5.3 mmol/L Final Chloride 03/10/2024 102 98 - 107 mmol/L Final Bicarbonate 03/10/2024 23 21 - 32 mmol/L Final Anion Gap 03/10/2024 19 10 - 20 mmol/L Final Urea Nitrogen 03/10/2024 28 (H) 6 - 23 mg/dL Final Creatinine 03/10/2024 1.27 (H) 0.50 - 1.05 mg/dL Final eGFR 03/10/2024 43 (L) >60 mL/min/1.73m*2 Final Calculations of estimated GFR are performed using the 2020 CKD-EPI Study Refit equation without therace variable for the IDMS-Traceable creatinine methods. https://jasn.asnjournals.org/content/early//ASN.0163933771 Calcium 03/10/2024 9.3 8.6 - 10.6 mg/dL Final Albumin 03/10/2024 3.9 3.4 - 5.0 g/dL Final Alkaline Phosphatase 03/10/2024 68 33 - 136 U/L Final Total Protein 03/10/2024 6.0 (L) 6.4 - 8.2 g/dL Final AST 03/10/2024 35 9 - 39 U/L Final Bilirubin, Total 03/10/2024 0.4 0.0 - 1.2 mg/dL Final ALT 03/10/2024 198 (H) 7 - 45 U/L Final Patients treated with Sulfasalazine may generate falsely decreased results for ALT. Lab on 03/07/2024 Component Date Value Ref Range Status Glucose 03/07/2024 135 (H) 74 - 99 mg/dL Final Sodium 03/07/2024 136 136 - 145 mmol/L Final Potassium 03/07/2024 4.8 3.5 - 5.3 mmol/L Final Chloride 03/07/2024 102 98 - 107 mmol/L Final Bicarbonate 03/07/2024 24 21 - 32 mmol/L Final Anion Gap 03/07/2024 15 10 - 20 mmol/L Final Urea Nitrogen 03/07/2024 28 (H) 6 - 23 mg/dL Final Creatinine 03/07/2024 1.24 (H) 0.50 - 1.05 mg/dL Final eGFR 03/07/2024 45 (L) >60 mL/min/1.73m*2 Final Calculations of estimated GFR are performed using the 2020 CKD-EPI Study Refit equation without therace variable for the IDMS-Traceable creatinine methods. https://jasn.asnjournals.org/content/early//ASN.4238234591 Calcium 03/07/2024 9.3 8.6 - 10.6 mg/dL Final Albumin 03/07/2024 3.6 3.4 - 5.0 g/dL Final Alkaline Phosphatase 03/07/2024 74 33 - 136 U/L Final Total Protein 03/07/2024 5.7 (L) 6.4 - 8.2 g/dL Final AST 03/07/2024 28 9 - 39 U/L Final Bilirubin, Total 03/07/2024 0.5 0.0 - 1.2 mg/dL Final ALT 03/07/2024 389 (H) 7 - 45 U/L Final Patients treated with Sulfasalazine may generate falsely decreased results for ALT. Albumin, Urine Random 03/07/2024 692.9 Not established mg/L Final Creatinine, Urine Random 03/07/2024 49.1 20.0 - 320.0 mg/dL Final Albumin/Creatinine Ratio 03/07/2024 1,411.2 (H) <30.0 ug/mg Creat Final Total Protein 03/07/2024 5.7 (L) 6.4 - 8.2 g/dL Final Albumin 03/07/2024 3.4 3.4 - 5.0 g/dL Final Alpha 1 Globulin 03/07/2024 0.3 0.2 - 0.6 g/dL Final Alpha 2 Globulin 03/07/2024 0.8 0.4 - 1.1 g/dL Final Beta Globulin 03/07/2024 0.6 0.5 - 1.2 g/dL Final Gamma 03/07/2024 0.6 0.5 - 1.4 g/dL Final Protein Electrophoresis Comment 03/07/2024 Normal. Final Immunofixation Comment 03/07/2024 No monoclonal protein detected by immunofixation. Final Path Review - Serum Protein Electr* 03/07/2024 Reviewed and approved by AGUSTIN STERLING on 03/09/24 at 8:24 PM. Final Path Review - Serum Immunofixation 03/07/2024 Reviewed and approved by AGUSTIN STERLING on 03/09/24 at8:24 PM. Final Total Protein, Urine Random 03/07/2024 99 (H) 5 - 25 mg/dL Final Albumin % 03/07/2024 84.5 % Final Alpha 1 Globulin % 03/07/2024 1.9 % Final Alpha 2 Globulin % 03/07/2024 3.6 % Final Beta Globulin % 03/07/2024 5.6 % Final Gamma Globulin % 03/07/2024 4.4 % Final Urine Electrophoresis Comment 03/07/2024 Marked proteinuria. No monoclonal protein detected. Final Path Review-Urine Protein Electrop* 03/07/2024 Reviewed and approved by AGUSTIN STERLING on 03/09/24 at 7:44 PM. Final Phosphorus 03/07/2024 4.1 2.5 - 4.9 mg/dL Final The performance characteristics of phosphorus testing in heparinized plasma have been validated by the individual laboratory site where testing is performed. Testing on heparinized plasma is not approved by the FDA; however, such approval is not necessary. Lab on 02/01/2024 Component Date Value Ref Range Status BNP 02/01/2024 700 (H) 0 - 99 pg/mL Final Glucose 02/01/2024 112 (H) 74 - 99 mg/dL Final Sodium 02/01/2024 138 136 - 145 mmol/L Final Potassium 02/01/2024 4.9 3.5 - 5.3 mmol/L Final Chloride 02/01/2024 100 98 - 107 mmol/L Final Bicarbonate 02/01/2024 21 21 - 32 mmol/L Final Anion Gap 02/01/2024 22 (H) 10 - 20 mmol/L Final Urea Nitrogen 02/01/2024 15 6 - 23 mg/dL Final Creatinine 02/01/2024 0.95 0.50 - 1.05 mg/dL Final eGFR 02/01/2024 61 >60 mL/min/1.73m*2 Final Calculations of estimated GFR are performed using the 2020 CKD-EPI Study Refit equation without therace variable for the IDMS-Traceable creatinine methods. https://jasn.asnjournals.org/content//ASN.7487037484 Calcium 02/01/2024 9.4 8.6 - 10.6 mg/dL Final Albumin 02/01/2024 3.6 3.4 - 5.0 g/dL Final Alkaline Phosphatase 02/01/2024 47 33 - 136 U/L Final Total Protein 02/01/2024 5.8 (L) 6.4 - 8.2 g/dL Final AST 02/01/2024 13 9 - 39 U/L Final Bilirubin, Total 02/01/2024 0.7 0.0 - 1.2 mg/dL Final ALT 02/01/2024 24 7 - 45 U/L Final Patients treated with Sulfasalazine may generate falsely decreased results for ALT. There may be more visits with results that are not included. Current Outpatient Medications on File Prior to Visit Medication Sig Dispense Refill albuterol 90 mcg/actuation inhaler Inhale 2 puffs every 4 hours if needed. amLODIPine (Norvasc) 2.5 mg tablet Take 1 tablet (2.5 mg) by mouth early in the morning.. apixaban (Eliquis) 5 mg tablet Take 1 tablet (5 mg) by mouth twice a day. atovaquone (Mepron) 750 mg/5 mL suspension Take 10 mL (1,500 mg) by mouth once daily. blood sugar diagnostic (Contour Next Test Strips) strip 1 each 2 times a day. 200 strip 1 carvedilol (Coreg) 25 mg tablet Take 0.5 tablets (12.5 mg) by mouth 2 times daily (morning and lateafternoon). cholecalciferol (Vitamin D-3) 50 MCG (2000 UT) tablet Take 2 tablets (4,000 Units) by mouth once daily. clindamycin (Cleocin T) 1 % lotion twice a day. Apply sparingly and massage in cyanocobalamin (Vitamin B-12) 1,000 mcg tablet Take 1 tablet (1,000 mcg) by mouth once daily. ezetimibe (Zetia) 10 mg tablet Take 1 tablet (10 mg) by mouth once daily. finerenone (Kerendia) 10 mg tablet tablet Take 1 tablet (10 mg) by mouth once daily. 90 tablet 3 fluocinonide (Lidex) 0.05 % external solution 1 (one) time each day. Apply to affected areas furosemide (Lasix) 20 mg tablet Take 1 tablet (20 mg) by mouth once daily. guaiFENesin (Mucinex) 600 mg 12 hr tablet Take 2 tablets (1,200 mg) by mouth 2 times a day. Do not crush, chew, or split. icosapent ethyL (Vascepa) 1 gram capsule Take 2 capsules (2 g) by mouth twice a day. linagliptin-metformin (Jentadueto XR) 2.5-1,000 mg tablet, IR - ER, biphasic 24hr Take 2 tablets bymouth once daily. 180 tablet 3 losartan (Cozaar) 100 mg tablet TAKE 1 TABLET BY MOUTH ONCE DAILY. 90 tablet 3 multivit,calc,mins/iron/folic (ONE-A-DAY WOMENS FORMULA ORAL) Take 1 tablet by mouth once daily. pantoprazole (ProtoNix) 40 mg EC tablet Take 1 tablet (40 mg) by mouth. Take 1 tablet (40 mg) by mouth 2 times daily for 30 days, THEN 1 tablet (40 mg) every morning (before breakfast). Do not crush,chew, or split.. predniSONE (Deltasone) 20 mg tablet Take 1 tablet (20 mg) by mouth once daily. rosuvastatin (Crestor) 10 mg tablet TAKE 1 TABLET BY MOUTH ONCE DAILY. 90 tablet 3 sertraline (Zoloft) 25 mg tablet Take 1 tablet (25 mg) by mouth once daily. tiotropium (Spiriva Respimat) 2.5 mcg/actuation inhaler Inhale 2 puffs once daily. 12 g 3 [DISCONTINUED] lansoprazole (Prevacid) [address] capsule TAKE 1 CAPSULE BY MOUTH ONCE DAILY. 90 capsule 3 No current facility-administered medications on file prior to visit. No images are attached to the encounter. 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 Take with at least 8 ounces (large glass) of water, do not lie down for 30 minutes after 1. Patient will have follow-up with GI and colonoscopy as outpatient 2. Patient have additional blood work performed to follow-up on her anemia by next thursday 3. Patient will continue on current medications 4. Continue workup for weight loss 5. Patient to hold off on stress test because of her anemia will put this in 2-3 months from now when anemia is resolving, follow up with Dr. Jerome 6. Patient to call if questions or concerns [facility] Work Phone: 1(331) 771-221504-03-2025 Telephone encounter Note* Telephone Encounter - SUJATA Negrete CNP - 11/17/2024 4:18 PM EDT PC to pt to review results. Hgb remains low at 7.5, but not worsening. WBC elevated. No symptoms of bleeding per pt. She is going to see PCP tomorrow. She is going to see GI next week to discuss colonoscopy. At this time because her Hgb < 8 I advise against a stress test. I would like her to keep her current appt later this month 12/12/[address] Jerome. She also mentioned the conversation she just had with Dash Hartman RN from our office regarding the left ankle edema. Her weight has gone from 135>132#. Improving. Advised compression socks and elevation as well. She was grateful for the call. [facility] [id number] Miscellaneous Notes* Telephone Encounter - Ana Barcenas - 11/15/2024 9:47 AM EDT Your patient has been scheduled for their CV 1 DAY NM STRESS TEST on 11/30/[address] If testing requires an insurance authorization, the authorization must be in place 48 hours prior to the scheduled test or testing will be cancelled. Thank you, Central Scheduling documented in this encounterSSt[facility] [id number] Telephone encounter Note* Telephone Encounter - Ana Barcenas - 11/15/2024 9:47 AM EDT Your patient has been scheduled for their CV 1 DAY NM STRESS TEST on 11/30/[address] If testing requires an insurance authorization, the authorization must be in place 48 hours prior to the scheduled test or testing will be cancelled. Thank you, Central Scheduling [facility] [id number] Telephone encounter Note* Telephone Encounter - Tana Hernandez LPN - 11/14/2024 10:21 AM EDT Date/Time patient contacted: 11/14/24 Has a follow up appointment been made with your primary care provider? (If yes, note date/time of appt. If no, are we able to schedule or get patient in contact with provider): yes Have your prescriptions been filled: (If no, why not, contact pharmacist if needed): yes Now that you are home, I want to make sure that you understand the most important things about taking care of yourself. I see that you were discharged with a diagnosis of Symptomatic anemia , do you know what symptoms or health problems to watch for or when to call your provider: yes Do you have any other questions about your discharge or follow up care instructions? (if yes, what): no Are there any caregivers from the hospital that you would like to recognize or compliment: no [facility] [id number] Miscellaneous Notes* Telephone Encounter - Tana Hernandez LPN - 11/14/2024 10:21 AM EDT Date/Time patient contacted: 11/14/24 Has a follow up appointment been made with your primary care provider? (If yes, note date/time of appt. If no, are we able to schedule or get patient in contact with provider): yes Have your prescriptions been filled: (If no, why not, contact pharmacist if needed): yes Now that you are home, I want to make sure that you understand the most important things about taking care of yourself. I see that you were discharged with a diagnosis of Symptomatic anemia , do you know what symptoms or health problems to watch for or when to call your provider: yes Do you have any other questions about your discharge or follow up care instructions? (if yes, what): no Are there any caregivers from the hospital that you would like to recognize or compliment: no documented in this [facility]03-28-2025 Note* Care Coordination - SUJATA Mendoza CNP - 11/11/2024 12:41 PM EDT Patient on AutoPAP at home. Compliance report reviewed and showed air leak. I spoke with patient today as we were going to have her DME company check her mask. Patient states she has not been wearingthe straps as she should as she was trying to not mess up her hair. She plans to wear mask normallyand we will follow up on compliance report again outpatient. [facility] Work Phone: [phone]) 455-729403-28-2025 Note* Care Coordination - SUJATA Mendoza CNP - 11/11/2024 12:41 PM EDT Patient on AutoPAP at home. Compliance report reviewed and showed air leak. I spoke with patient today as we were going to have her DME company check her mask. Patient states she has not been wearingthe straps as she should as she was trying to not mess up her hair. She plans to wear mask normallyand we will follow up on compliance report again outpatient. [facility] Phone: 1(183) 991-165803-28-2025 Miscellaneous Notes* Care Coordination - SUJATA Mendoza CNP - 11/11/2024 12:41 PM EDT Patient on AutoPAP at home. Compliance report reviewed and showed air leak. I spoke with patient today as we were going to have her DME company check her mask. Patient states she has not been wearingthe straps as she should as she was trying to not mess up her hair. She plans to wear mask normallyand we will follow up on compliance report again outpatient. * Care Plan - Cassandra Barnes RN - 11/11/2024 4:38 AM EDT Problem: Knowledge Deficit Goal: Patient/family/caregiver demonstrates understanding of disease process, treatment plan, medications, and discharge instructions Outcome: Progressing Problem: Hemodynamic Status Goal: Patient's vitals signs are stable Outcome: Progressing Problem: Excessive Fluid Volume Goal: Fluid and electrolyte balance are achieved/maintained Outcome: Progressing Problem: Problem Interventions Goal: Assess Nutritional Intake Outcome: Progressing * Perioperative Nursing Note - Kari Schultz RN - 11/10/2024 12:19 PM EDT Report called to [email or web address] POST ENDOSCOPY PROCEDURE TRANSFER REPORT Procedure completed: EGD Findings:hiatle hernia Specimens obtained: n/a Medications administered: propofol Additional Info: No adverse events or complications. For additional Questions please call Endoscopy at [phone]. Thank You! * Op Note - Stan Jama DO - 11/10/2024 11:38 AM EDT [facility] Rol[facility] Procedure Date: 11/10/2024 11:38 AM Gender: Female Date of : 1945 Age: 79 Admit Type: Inpatient Note Status: Finalized Endoscopist: Stan Jama DO, [id number] Procedure: Upper GI endoscopy Indications: Iron deficiency anemia secondary to chronic blood loss, Heme positive stool Findings: The examined esophagus was normal. A hiatal hernia was found. The proximal extent of the gastric folds (end of tubular esophagus) was 41 cm from the incisors. The hiatal narrowing was 44 cm from the incisors. The hernia appeared to be medium in volume. The Z-line was regular and was found 41 cm from the incisors. The entire examined stomach, cardia (on retroflexion) and gastric fundus (on retroflexion) were normal. The duodenal bulb, second portion of the duodenum and third portion of the duodenum were normal. Impression: - Normal esophagus. - Hiatal hernia. - Z-line regular, 41 cm from the incisors. - Normal stomach, cardia and gastric fundus. - Normal duodenal bulb, second portion of the duodenum and third portion of the duodenum. - No specimens collected. Recommendation: - Patient has a contact number available for emergencies. The signs and symptoms of potential delayed complications were discussed with the patient. Return to normal activities tomorrow. Written discharge instructions were provided to the patient. - Resume previous diet. - Continue present medications. - Monitor hgb and transfuse as needed - Okay to resume Eliquis with close monitoring of hgb - Outpatient colonoscopy with Dr. Lindsay +/- small bowel capsule if necessary Referring MD: Celia Al Medicines: Monitored Anesthesia Care, See the Anesthesia note for documentation of the administered medications Procedure: Pre-Anesthesia Assessment: - Prior to the procedure, a History and Physical was performed, and patient medications and allergies were reviewed. The patient's tolerance of previous anesthesia was also reviewed. The risks and benefits of the procedure and the sedation options and risks were discussed with the patient. All questions were answered, and informed consent was obtained. Prior Anticoagulants: The patient last took Eliquis (apixaban) 2 days prior to the procedure. ASA Grade Assessment: III - A patient with severe systemic disease. After reviewing the risks and benefits, the patient was deemed in satisfactory condition to undergo the procedure. After obtaining informed consent, the endoscope was passed under direct vision. Throughout the procedure, the patient's blood pressure, pulse, and oxygen saturations were monitored continuously. The Endoscope was introduced through the mouth, and advanced to the third part of duodenum. The upper GI endoscopy was accomplished without difficulty. The patient tolerated the procedure well. Complications: No immediate complications. Procedure Code(s): --- Professional --- 01126, Esophagogastroduodenoscopy, flexible, transoral; diagnostic, including collection of specimen(s) by brushing or washing, when performed (separate procedure) --- Technical --- 25888, Esophagogastroduodenoscopy, flexible, transoral; diagnostic, including collection of specimen(s) by brushing or washing, when performed (separate procedure) Diagnosis Code(s): --- Professional --- K44.9, Diaphragmatic hernia without obstruction or gangrene D50.0, Iron deficiency anemia secondary to blood loss (chronic) R19.5, Other fecal abnormalities --- Technical --- K44.9, Diaphragmatic hernia without obstruction or gangrene D50.0, Iron deficiency anemia secondary to blood loss (chronic) R19.5, Other fecal abnormalities CPT copyright 2021 [employer]. All rights reserved. The codes documented in this report are preliminary and upon structural steel detailer review may be revised to meet current compliance requirements. Attending Participation: I personally performed the entire procedure. Stan Jama DO 11/10/2024 12:11:18 PM This report has been signed electronically. Number of Addenda: 0 Note Initiated On: 11/10/2024 11:38 AM * Care Plan - Una Churchill RN - 11/09/2024 8:30 PM EDT Problem: Knowledge Deficit Goal: Patient/family/caregiver demonstrates understanding of disease process, treatment plan, medications, and discharge instructions Outcome: Progressing Flowsheets (Taken 11/10/2024 0430) Patient/family/caregiver demonstrates understanding of disease process, treatment plan, medications, and discharge instructions: Provide teaching at level of understanding Problem: Hemodynamic Status Goal: Patient's vitals signs are stable Outcome: Progressing Flowsheets (Taken 11/08/20242028) Patient's vital signs are stable: Assess and monitor patient's heart rate, rhythm, respiratory rate, peripheral pulses, capillary refill, color, body temperature, intake and output, labs and physical activity tolerance Observe for signs of chest pain (note location, duration, severity, radiation and associated symptoms such as diaphoresis, nausea, indigestion) Monitor for signs and symptoms of heart failure (e.g. shortness of breath, edema of feet/ankles/legs, rapid irregular heart rate, coughing, wheezing, white/pink blood tinged sputum, sudden weight gain, chest pain) Plan activities to conserve energy * Care Plan - Quynh Ibarra RN - 11/09/2024 5:02 PM EDT Problem: Knowledge Deficit Goal: Patient/family/caregiver demonstrates understanding of disease process, treatment plan, medications, and discharge instructions Outcome: Progressing Problem: Hemodynamic Status Goal: Patient's vitals signs are stable Outcome: Progressing Problem: Excessive Fluid Volume Goal: Fluid and electrolyte balance are achieved/maintained Outcome: Progressing Problem: Problem Interventions Goal: Assess Nutritional Intake Outcome: Progressing * Care Coordination - Karyn Angeles RN - 11/09/2024 10:33 AM EDT Rounds this am DCP: [place] spouse Symptomatic Anemia Hgb 6.6 on Eliquis Positive fecal occult blood test. I U PRBC given 6.6>7.5>7.2 * Care Plan - Una Churchill RN - 11/08/2024 8:29 PM EDT Problem: Knowledge Deficit Goal: Patient/family/caregiver demonstrates understanding of disease process, treatment plan, medications, and discharge instructions Outcome: Progressing Flowsheets (Taken 11/08/20242028) Patient/family/caregiver demonstrates understanding of disease process, treatment plan, medications, and discharge instructions: Provide teaching at level of understanding Problem: Hemodynamic Status Goal: Patient's vitals signs are stable Outcome: Progressing Flowsheets (Taken 11/08/20242028) Patient's vital signs are stable: Assess and monitor patient's heart rate, rhythm, respiratory rate, peripheral pulses, capillary refill, color, body temperature, intake and output, labs and physical activity tolerance Observe for signs of chest pain (note location, duration, severity, radiation and associated symptoms such as diaphoresis, nausea, indigestion) Monitor for signs and symptoms of heart failure (e.g. shortness of breath, edema of feet/ankles/legs, rapid irregular heart rate, coughing, wheezing, white/pink blood tinged sputum, sudden weight gain, chest pain) Plan activities to conserve energy Problem: Excessive Fluid Volume Goal: Fluid and electrolyte balance are achieved/maintained Outcome: Progressing documented in this [facility]03-28-2025 Hospital Discharge instructions* Discharge Instructions* Nel Toledo MD - 11/11/2024 11:37 AM EDT GENERAL SIGNS AND SYMPTOMS GREEN ZONE: All Clear- Your Symptoms Are Under Control No recurrence of symptoms that led to hospitalization Able to do usual activities No fever No chest pain No shortness of breath This Means You Should: Continue taking your medications as prescribed Continue activity as tolerated Keep all doctor appointments YELLOW ZONE: Caution as Your Health may be Worsening Recurrence of symptoms that led to hospitalization Fever of 100 degrees or higher Increased fatigue or restlessness Intolerant side-effects of medications Uneasy feeling or that something is wrong This Means You Should: Call your doctor for further instructions RED ZONE: Medical Alert Severe or unrelieved shortness of breath at rest Unrelieved chest pain Confusion or you can't think clearly This Means You Should Call 911 Immediately * Attachments The following attachments cannot be sent through Care Everywhere. * Normocytic Normochromic Anemia (Tristanian) documented in this [facility]03-28-2025 [facility] 11-11-2024 Hospital course Narrative* Nel Toledo MD - 11/11/2024 9:45 AM EDT Hospitalist Discharge Summary Rolando Peters : 1945 Admit date: 11/08/2024 Discharge date: 11/11/2024 Admitting Physician: Nel Toledo MD Primary Care Physician: CELIA AL DO Visit Status: Inpatient Code Status: Full Code BRIEF HOSPITAL COURSE: 79-year-old female presented to the emergency department with increased shortness of breath, dizziness, and lightheadedness and was sent in by her cementer oil well Dr. Jerome. She has a past medical history of PAF on Eliquis, bilateral carotid artery stenosis, asthma, breast cancer in 1993 with right m astectomy, CKD, COPD/emphysema, CAD, DM, GERD, Hypertension, lung nodules, syncope in 2022 and hypercholesteremia, chest tube September of 2023, and bronchoscopy in 2023 . In ED, she was found to haveHgb 6.6, WBC 11, BNP 3683, ALT 49, AG 16, and CO2 18. She received one unit of pRBC in ED, and was admitted for medical management. She had a colonoscopy last year without any reported issues. The patient occasionally experiences epigastric pain with some lower abdominal pain, which she describes as gassy, and believes she has always been gassy. She endorses a 50-pound weight loss over the past year, which is being worked up by her PCP. Iron studies showed iron deficiency anemia - discussed patient getting iron tranfusion prior to discharge. The patient has a history of organizing pneumonia with numerous nodules that come and go and changein size, followed by pulmonology. She has been on a prolonged prednisone course for this condition and is currently being slowly weaned off. The patient reports slight edema in the left lower extremity, which has been present for the past couple of weeks. GI was consulted and EGD was preformed which showed no acute bleed, will need outpatient colonoscopy on discharge Acute, acute on chronic, unstable/uncontrolled chronic problems/discharge diagnoses: Severe Iron Deficiency Anemia 79-year-old female presented to the emergency department with hemoglobin of 6.66, which improved to7.2 the following morning. Patient reports increased shortness of breath, dizziness, and lightheadedness. Iron studies confirmed iron-deficient anemia, likely associated with positive occult blood. Physical examination revealed slightly pale conjunctiva. The patient also reports a 50- pound weight loss over the past year, which is being investigated by her PCP. 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 Currently on a prolonged prednisone course with ongoing taper. - Consult pulmonology to maintain current prednisone taper - 20 mg PO on discharge and to continue to follow up - Referred to Dr. Álvarez - from Dr Wren for reassessment of nodules, follow up outpatient - Continue Atorvaquone 1500 mg PO daily by pulmonology Abdominal Pain - resolved Patient reports occasional epigastric pain with some lower abdominal pain, described as gassy. Physical examination revealed epigastric tenderness on palpation and lower left quadrant abdominal tenderness. No abdominal distension or rigidity noted. EGD no acute findings, Left Lower Extremity Edema Patient reports slight edema in the left lower extremity for the past couple of weeks. Physical examination showed no calf tenderness, no bilateral enlargement compared to the other side, and strong pedal and radial pulses. 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 CAD Bilateral Carotid stenosis PAF on Eliquis hold eliquis Hypertension Hypercholesteremia - Amldopine 2.5 mg PO daily - Carvedilol 12.5 mg PO daily - Zetira 10 mg PO daily - Losartan 100 mg PO daily DM with hyperglycemia - restart metformin - - continue finerenone, liragliptin Moderate Malnutrition CKD stage 2 GERD - on PPI - BID for 30 days and then down to daily Past Medical History: Diagnosis Date Arrhythmia Arthritis Asthma Breast cancer (HCC) 1993 Right Breast(Mastectomy) Breast cancer (HCC) 2010 Left Breast(Simple Mastectomy, SLND) Chronic kidney disease COPD (chronic obstructive pulmonary disease) (HCC) Coronary artery disease Diabetes (HCC) Emphysema of lung (HCC) Within last year GERD (gastroesophageal reflux disease) High blood pressure Lung nodule -2022 Occlusion and stenosis of unspecified carotid artery Pure hypercholesterolemia Syncope and collapse 08/29/2022 Procedures: CXR3/7: Impression: FINDINGS AND IMPRESSION: SUPPORT DEVICES: None OSSEOUS STRUCTURES: Degenerative changes in the thoracic spine. HEART AND MEDIASTINUM: The cardiomediastinal silhouette appears unchanged from the prior exam. LUNGS AND PLEURA: Hyperinflated lungs with coarse interstitial markings likely related to chronic obstructive pulmonary disease. No consolidation, edema or sizable effusion. CT head 11/08: Impression: No evidence of an acute intracranial process. Hospital Course: See discharge diagnoses list above and medication adjustments below in med rec.Thepatient is discharged in improved and stable condition. Consults: IP CONSULT TO GI IP CONSULT TO PULMONOLOGY Discharge Instructions: Diet: Dietary Orders (From admission, onward) Start Ordered 11/10/24 1207 Adult diet Regular Diet effective now Question: Diet type Answer: Regular 11/10/24 1206 11/09/24 1110 Supplement:Lunch; Chocolate Ensure High Protein Until discontinued Question Answer Comment Frequency Lunch Select supplement: Chocolate Ensure High Protein 11/09/24 1109 Activity: as tolerated Recommended Outpatient Tests: Disposition: Patient discharged in stable condition to Home. Greater than 31 minutes spent discharging the patient and coming up with patient discharge plan. Vitals: BP (!) 144/46 (BP Location: Left arm, Patient Position: Sitting) Pulse 68 Temp 36.9 C (98.5 F) (Temporal) Resp 16 Ht 5' 7 (1.702 m) Wt 133 lb 13.1 oz (60.7 kg) SpO2 95% BMI 20.96 kg/m Pulse Ox: SpO2 Av.3 % Min: 94 % Max: 97 % Supplemental O2: Physical Exam - General: Appears in no acute distress, slightly pale conjunctiva. - Head, Eyes, Ears, Nose, Throat: Normal dentition. Moist mucus membranes, - Cardiovascular: Murmur appreciated left sternal and right sternal border. Regular rate and rhythm - Respiratory: Lungs clear to bases bilaterally. - Abdomen: No tenderness to palpations, - Extremities: Slight edema bilaterally. Strong pedal and radial pulses. - Skin: warm to palpaiton, LABS: Recent Labs 11/09/24 0501 11/10/24 0110 11/11/24 0508 NA 138 135* 139 K 3.6 4.3 3.9 CL 107 105 108* CO2 21* 20* 22* BUN 19 16 20 CREATININE 0.77 0.80 0.82 GLUCOSE 118* 229* 138* CALCIUM 7.8* 8.3* 8.5* Recent Labs 11/08/24 1419 11/08/24200711/10/24 0110 11/10/24 0817 11/11/24 0508 WBC 11.0* -- 8.1 -- 9.6 RBC 2.39* -- 2.68* -- 2.72* HGB 6.6* < > 7.4* 7.4* 7.5* HCT 21.3* < > 23.1* 23.2* 23.5* MCV 89.1 -- 86.2 -- 86.4 MCH 27.6 -- 27.6 -- 27.6 MCHC 31.0 -- 32.0 -- 31.9 RDW 16.0* -- 15.8* -- 15.9* PLT 298 -- 276 -- 270 MPV 8.7* -- 9.1 -- 8.9* < > = values in this interval not displayed. Discharge Medications: Medication List START taking these medications pantoprazole 40 MG EC tablet Commonly known as: ProtoNix Take 1 tablet (40 mg) by mouth 2 times daily for 30 days, THEN 1 tablet (40 mg) every morning (before breakfast). Do not crush, chew, or split.. Start taking on: November 11, 2024 CHANGE how you take these medications predniSONE 20 MG tablet Commonly known as: Deltasone Take 1 tablet (20 mg) by mouth daily for 10 days. Start taking on: November 12, 2024 What changed: medication strength how much to take how to take this when to take this additional instructions CONTINUE taking these medications albuterol 108 (90 Base) MCG/ACT inhaler Commonly known as: Ventolin HFA Inhale 2 puffs every 4 hours as needed for wheezing or shortness of breath. amLODIPine 2.5 MG tablet Commonly known as: Norvasc Take 1 tablet (2.5 mg) by mouth daily. apixaban 5 MG tablet Commonly known as: Eliquis Take 1 tablet (5 mg) by mouth 2 times daily. atovaquone 750 MG/5ML suspension Commonly known as: Mepron Take 10 mL (1,500 mg) by mouth daily. B-12 1000 MCG capsule carvedilol 12.5 MG tablet Commonly known as: Coreg Take 1 tablet (12.5 mg) by mouth 2 times daily (with meals). cholecalciferol 50 MCG (2000 UT) tablet Commonly known as: Vitamin D-3 Contour Next Test test strip Generic drug: glucose blood ezetimibe 10 MG tablet Commonly known as: Zetia Take 1 tablet (10 mg) by mouth in the morning. fluticasone 0.05 % cream Commonly known as: Cutivate furosemide 20 MG tablet Commonly known as: Lasix Take 1 tablet (20 mg) by mouth every other day. Icosapent Ethyl 1 g capsule Commonly known as: Vascepa Take 2 capsules (2 g) by mouth 2 times daily (with meals). Jentadueto XR 2.5-1000 MG per 24 hr tablet Generic drug: linaGLIPtin-metFORMIN ER Kerendia 10 MG tablet Generic drug: Finerenone losartan 100 MG tablet Commonly known as: Cozaar Take 1 tablet (100 mg) by mouth daily. MULTIPLE VITAMINS/WOMENS PO rosuvastatin 10 MG tablet Commonly known as: Crestor sertraline 25 MG tablet Commonly known as: Zoloft Take 1 tablet (25 mg) by mouth daily. Spiriva Respimat 2.5 MCG/ACT inhaler Generic drug: tiotropium Inhale 2 puffs daily. STOP taking these medications lansoprazole [address] capsule Commonly known as: Prevacid Where to Get Your Medications These medications were sent to [facility] [address] [place], [place] [id number] [facility] [id number] atovaquone 750 MG/5ML suspension pantoprazole 40 MG EC tablet predniSONE 20 MG tablet Information about where to get these medications is not yet available Ask your nurse or doctor about these medications furosemide 20 MG tablet Recommended Follow-up: Celia Al DO [address] [facility], [place] [address] [facility] [phone] Call Please call and schedule an outpatient appointment for follow up. Stan Jama DO [address] [facility] [phone] Call Please call and schedule an appointment to get your outpatient colonscopy Complexity of Follow up: [] Moderate Complexity: follow up within 7-14 calendar days (19597) [x] Severe Complexity: follow up within 7 calendar days (39072) Follow up Testing, Pending results or Referrals at Transitional Care Visit: [x] yes [] no Instructions to MA: Please call patient on day after discharge (must document patient contacted within 2 business days of discharge). Follow up questions for MA: 1. Did you get medications filled and taking them as instructed from discharge? 2. Are you following your discharge instructions from your hospital stay? 3. Please confirm patient is scheduled for a follow up appointment within the above time frame. Signed: Nel Toledo MD Division of Hospitalist Medicine [facility] 11/11/2024, 1:15 PM documented in this [facility]03-28-2025 Plan of care note* Care Plan - Cassandra Barnes RN - 11/11/2024 4:38 AM EDT Problem: Knowledge Deficit Goal: Patient/family/caregiver demonstrates understanding of disease process, treatment plan, medications, and discharge instructions Outcome: Progressing Problem: Hemodynamic Status Goal: Patient's vitals signs are stable Outcome: Progressing Problem: Excessive Fluid Volume Goal: Fluid and electrolyte balance are achieved/maintained Outcome: Progressing Problem: Problem Interventions Goal: Assess Nutritional Intake Outcome: [facility]ing [id number] of Present illness Narrative* Nel Toledo MD - 11/10/2024 1:50 PM EDT Hospitalist Progress Note 11/10/2024 Subjective: Admit Date: 11/08/2024 PCP: CELIA AL DO Room#: B2-383/B2-312 A BRIEF HOSPITAL COURSE: 79-year-old female presented to the emergency department with increased shortness of breath, dizziness, and lightheadedness and was sent in by her cementer oil well Dr. Jerome. She has a past medical history of PAF on Eliquis, bilateral carotid artery stenosis, asthma, breast cancer in 1993 with right m astectomy, CKD, COPD/emphysema, CAD, DM, GERD, Hypertension, lung nodules, syncope in 2022 and hypercholesteremia, chest tube September of 2023, and bronchoscopy in 2023 . In ED, she was found to haveHgb 6.6, WBC 11, BNP 3683, ALT 49, AG 16, and CO2 18. She received one unit of pRBC in ED, and was admitted for medical management. She had a colonoscopy last year without any reported issues. The patient occasionally experiences epigastric pain with some lower abdominal pain, which she describes as gassy, and believes she has always been gassy. She endorses a 50-pound weight loss over the past year, which is being worked up by her PCP. Iron studies showed iron deficiency anemia - discussed patient getting iron tranfusion prior to discharge. The patient has a history of organizing pneumonia with numerous nodules that come and go and changein size, followed by pulmonology. She has been on a prolonged prednisone course for this condition and is currently being slowly weaned off. The patient reports slight edema in the left lower extremity, which has been present for the past couple of weeks. GI was consulted and EGD was preformed which showed no acute bleed, will need outpatient colonoscopy on discharge Interval History: Feeling stronger and more energy - no blood in stools, no headache or dizziness No chest pain or shortness of breath NO abdomen pain . . Case and plan discussed with patient and bedside nurse. All questions answered. Adult diet Regular 24HR INTAKE/OUTPUT: Intake/Output Summary (Last 24 hours) at 11/10/2024 1350 Last data filed at 11/10/2024 1204 Gross per 24 hour Intake 100 ml Output -- Net 100 ml Past Medical History: Past Medical History: Diagnosis Date Arrhythmia Arthritis Asthma Breast cancer (HCC) 1993 Right Breast(Mastectomy) Breast cancer (HCC) 2010 Left Breast(Simple Mastectomy, SLND) Chronic kidney disease COPD (chronic obstructive pulmonary disease) (HCC) Coronary artery disease Diabetes (HCC) Emphysema of lung (HCC) Within last year GERD (gastroesophageal reflux disease) High blood pressure Lung nodule -2022 Occlusion and stenosis of unspecified carotid artery Pure hypercholesterolemia Syncope and collapse 08/29/2022 LABS: CBC: Recent Labs 11/08/24 1419 11/08/24200711/09/24 2305 11/10/24 0110 11/10/24 0817 WBC 11.0* -- -- 8.1 -- RBC 2.39* -- -- 2.68* -- HGB 6.6* < > 8.1* 7.4* 7.4* HCT 21.3* < > 26.5* 23.1* 23.2* MCV 89.1 -- -- 86.2 -- RDW 16.0* -- -- 15.8* -- PLT 298 -- -- 276 -- < > = values in this interval not displayed. BMP: Recent Labs 11/08/24 1419 11/09/24 0501 11/10/24 0110 NA 139 138 135* K 3.9 3.6 4.3 CL 105 107 105 CO2 18* 21* 20* BUN 23 19 16 CREATININE 0.91 0.77 0.80 GLUCOSE 152* 118* 229* CALCIUM 8.5* 7.8* 8.3* ANIONGAP 16* 10 10 LIVER PROFILE: Recent Labs 11/08/24 1419 AST 32 ALT 49* BILITOT 0.6 ALKPHOS 49 PROT 5.5* PT/INR: Recent Labs 11/09/24 0501 PROTIME 11.8 INR 1.1 CARDIAC ENZYMES: No results for input(s): TROPONINI in the last 72 hours. Procalcitonin: No results found for: PROCAL COVID-19 PCR: No results for input(s): COVID19 in the last 72 hours. Objective: Vitals: BP 139/60 (BP Location: Right arm, Patient Position: Sitting) Pulse 76 Temp 36.3 C (97.4 F) (Temporal) Resp 18 Ht 5' 7 (1.702 m) Wt 133 lb 13.1 oz (60.7 kg) SpO2 96% BMI 20.96 kg/m Pulse Ox: SpO2 Av.7 % Min: 95 % Max: 99 % Supplemental O2: Physical Exam Physical Examination - General: Appears in no acute distress, slightly pale conjunctiva. - Head, Eyes, Ears, Nose, Throat: Normal dentition. Moist mucus membranes, - Cardiovascular: Murmur appreciated left sternal and right sternal border. Regular rate and rhythm - Respiratory: Lungs clear to bases bilaterally. - Abdomen: No tenderness to palpations, - Extremities: Slight edema bilaterally. Strong pedal and radial pulses. Medications: Scheduled PRN amLODIPine, 2.5 mg, Oral, Daily [Held by provider] apixaban, 5 mg, Oral, BID atovaquone, 1,500 mg, Oral, Daily carvedilol, 12.5 mg, Oral, BID WC ezetimibe, 10 mg, Oral, Daily Finerenone, 1 tablet, Oral, Daily linaGLIPtin, 5 mg, Oral, Daily with breakfast losartan, 100 mg, Oral, Daily pantoprazole (ProtoNix) 40 mg in sodium chloride (PF) 0.9 % 10 mL injection, 40 mg, IntraVENous, qAM AC predniSONE, 15 mg, Oral, Daily PRN medications: acetaminophen OR acetaminophen, melatonin, ondansetron ODT OR ondansetron,polyethylene glycol (PEG) 3350 Continuous Assessment Data: (CAT1) Reviewed 3 or more notes from different specialty or health system (each=1). (CAT1) Reviewed 3 or more labs/studies ordered by another provider not previously counted (each=1, panels count as 1). (CAT1) Ordered 3 or more new labs and/or studies (each=1, panels count as 1). (LOW: 2x CAT1 or independent historian MOD: 3x CAT1 or 1x CAT3 EXTENSIVE: 3x CAT1 and 1x CAT3) Acute, acute on chronic, unstable/uncontrolled chronic problems/diagnoses: Severe Iron Deficiency Anemia 79-year-old female presented to the emergency department with hemoglobin of 6.66, which improved to7.2 the following morning. Patient reports increased shortness of breath, dizziness, and lightheadedness. Iron studies confirmed iron-deficient anemia, likely associated with positive occult blood. Physical examination revealed slightly pale conjunctiva. The patient also reports a 50- pound weight loss over the past year, which is being investigated by her PCP. - Anticipate iron therapy - Transfuse is <7 - Consult gastroenterology for potential colonoscopy - EGD completed on 11/10- no acute ffindings will need outpatient colonscopy - Monitor hemoglobin levels Shortness of breath on exertion - multifactorial - associated with anemia and organizing pneumonia Organizing Pneumonia with Pulmonary Nodules COPD with emphysema Lung nodules Patient is being followed by pulmonology for organizing pneumonia with numerous nodules that come and go and change in size. Currently on a prolonged prednisone course with ongoing taper. - Consult pulmonology to maintain current prednisone taper - Referred to Dr. Álvarez - from Dr Wren for reassessment of nodules - Continue Atorvaquone 1500 mg PO daily by pulmonology Abdominal Pain - resolved Patient reports occasional epigastric pain with some lower abdominal pain, described as gassy. Physical examination revealed epigastric tenderness on palpation and lower left quadrant abdominal tenderness. No abdominal distension or rigidity noted. - Await gastroenterology consultation and potential colonoscopy Left Lower Extremity Edema Patient reports slight edema in the left lower extremity for the past couple of weeks. Physical examination showed no calf tenderness, no bilateral enlargement compared to the other side, and strong pedal and radial pulses. 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 CAD Bilateral Carotid stenosis PAF on Eliquis hold eliquis Hypertension Hypercholesteremia - Amldopine 2.5 mg PO daily - Carvedilol 12.5 mg PO daily - Zetira 10 mg PO daily - Losartan 100 mg PO daily DM with hyperglycemia - HOLD metformin - in case there may need to be a CTA - to protect the kindney - continue finerenone, liragliptin - low carb diet - Will hold of insulin unless BS >200 CKD stage 2 GERD - on PPI Plan As a result of the above findings & factors, the following mgmt was pursued: - 11/09- VS, labs reviewed, Hemoglobin stable - and to be repeated at 1400 - plt dropped but given complete drop - will follow up with repeat labs before considering FRANCINE - pulmonology consult, awaiting GI plan for anemia and bleeding, NPO diet per GI. - 11/10- VS, labs reviewed, hemoglobin stable, will monitor overnight and if stable - patient to be discharge for outpatient colonscopy, EGD was unremarkable. Regular diet, - am labs, replace lytes prn - PT/OT/CM/SW - delirium precautions: increase activity and limit nighttime disturbances - DVT prophylaxis: encourage ambulation, already anticoagulated, and holding eliquis for GIB Complexity: Chronic illness with mild to moderate exacerbation, progression, or side effect of tx (MOD). Risk: Admission to hospital-level care was considered or occurred (HIGH). Consult to surgery for emergency major surgery, or major surgery with identified patient or procedural risk factors, was considered or occurred (HIGH). Advance Directive: Full Code Anticipated Discharge - Date - 11/11 - Location - home - Pending the following - clinical improvement Total time spent (which include face to face and non face to face encounters) : 41 minutes Toxic drug monitoring/narrow therapeutic index drug monitoring : # Drug name : Eliqusi # Route administered : oral # Method of monitoring : montior for bleeding - and holding monitor for any neurological deficiency- will start on discharge is hgb stable Extended Emergency Contact Information Primary Emergency Contact: Jin Peters Address: [address] [place] [address] [facility] Relation: Spouse Secondary Emergency Contact: Ene Negrete Address: [address] [place] [address] [facility] Relation: Daughter Nel Toledo MD Division of Hospitalist Medicine [facility] * Rosa Maria Munoz RD - 11/09/2024 11:10 AM EDT Nutrition Assessment Type and Reason for Visit: Initial, Positive Nutrition Screen Nutrition Recommendations/Plan: Continue 60 gm CHO/meal diet as ordered Per mnt protocol will add Ensure High Protein daily (160 kcal, 16 gm protein) Consider zinc level. MVI RD to monitor labs, weight, skin status, po intake -follow up weekly Malnutrition Assessment: Malnutrition Status: Moderate malnutrition Context: Acute Illness Findings of the 6 clinical characteristics of malnutrition: Energy Intake: 75% or less of estimated energy requirements for 7 or more days Weight Loss: (15% wt loss in 10 mo) Body Fat Loss: Mild body fat loss Triceps Muscle Mass Loss: Mild muscle mass loss Thigh (quadraceps), Calf (gastrocnemius) Fluid Accumulation: Mild Extremities Tool Rental Technician Strength: Not Performed Nutrition Assessment: 79 y.o. female admits with anemia -1 unit PRBC received in ED. pmhx bilateral carotid artery stenosis, asthma, breast cancer in 1993 with right mastectomy, CKD, COPD/emphysema, CAD, DM, GERD, HTN, lung nodules, hypercholesteremia. GI consulted with plan for EGD 11/10, poss iron therapy. pt reports unintentional 50 lb wt loss over past 2 years and foods tasting like cardboard. ubw 180-185 lb Estimated Daily Nutrient Needs: Energy Requirements Based On: Kcal/kg Weight Used for Energy Requirements: Current Weight for Energy Calculation (kg): 61 kg Total Energy Requirements (kcals/day): 0298-2697 (25-30) Weight Used for Protein Requirements: Current Weight in Kg Used for Protein Requirements: 61 kg Estimated Total Protein (g/day): 61-73 (1.0-1.2) Estimated Daily Total Fluid (ml/day): per MD Nutrition Related Findings: dc LE nonpitting edema. c02 21, bgluc 118, 238, 190, calcium 7.8, alb 2.9, iron 19, iron sat 7.4, bnp 3,683. tradjenta, glucophage. wt hx reviewed 5% loss over 2.5 mo, 15% loss over ~10 mo if wt hx accurate considered clinically significant. Wound Type: None 11/08/24 60.7 kg (133 lb 13.1 oz) 11/07/24 61.6 kg (135 lb 11.8 oz) 10/28/24 60.3 kg (133 lb) 09/16/24 60.6 kg (133 lb 8 oz) 08/26/24 63.5 kg (140 lb) 08/19/24 63.5 kg (140 lb) 08/01/24 62.1 kg (137 lb) 07/07/24 63 kg (139 lb) 06/07/24 62.9 kg (138 lb 9.6 oz) 06/01/24 63 kg (139 lb) 05/05/24 64.9 kg (143 lb 1.3 oz) 04/15/24 64.9 kg (143 lb) 02/15/24 63.3 kg (139 lb 9.6 oz) 02/01/24 64.9 kg (143 lb) 01/22/24 70.8 kg (156 lb) 12/04/23 67.7 kg (149 lb 3.2 oz) Current Nutrition Therapies: Adult diet Regular; 4 carb choices (60 gm/meal) NPO diet Current Oral Intake Average Meal Intake: 76-100% Average Supplements Intake: None Ordered Anthropometric Measures: Height: 170.2 cm (5' 7) Current Body Weight: 60.3 kg (133 lb) (bed scale) Admission Body Weight: 61.2 kg (135 lb) (stated) Usual Body Weight: 81.6 kg (180 lb) (-185 lb) % Weight Change (Calculated): -26.1 [place] Body Weight (lbs) (Calculated): 135 lbs [place] Body Weight (Kg) (Calculated): 61 kg % [place] Body Weight (Calculated): 98.5 % BMI (kg/m2) (Calculated): 20.8 Weight Adjustment For: No Adjustment BMI Categories: Underweight (BMI less than 22) age over 65 Nutrition Diagnosis: Moderate malnutrition, In context of acute illness or injury related to inadequate protein-energy intake as evidenced by mild muscle loss, poor intake prior to admission, mild loss of subcutaneous fat, Criteria as identified in malnutrition assessment Nutrition Interventions: Nutrition Education/Counseling: No recommendation at this time Coordination of Nutrition Care: Continue to monitor while inpatient Plan of Care discussed with: Pt Goals: Goals: PO intake 75% or greater, by next RD assessment Nutrition Monitoring and Evaluation: Behavioral-Environmental Outcomes: None Identified Food/Nutrient Intake Outcomes: Food and Nutrient Intake, Supplement Intake Physical Signs/Symptoms Outcomes: Biochemical Data, GI Status, Fluid Status or Edema, Hemodynamic Status, Nutrition Focused Physical Findings, Skin, Weight Discharge Planning: Continue current diet, Continue Oral Nutrition Supplement Rosa Maria Munoz RD Contact: *[phone] or via Secure Chat * Nel Toledo MD - 11/09/2024 8:46 AM EDT Hospitalist Progress Note 11/09/2024 Subjective: Admit Date: 11/08/2024 PCP: CELIA AL DO Room#: B2-268/B2-268 A BRIEF HOSPITAL COURSE: 79-year-old female presented to the emergency department with increased shortness of breath, dizziness, and lightheadedness and was sent in by her cementer oil well Dr. Jerome. She has a past medical history of PAF on Eliquis, bilateral carotid artery stenosis, asthma, breast cancer in 1993 with right m astectomy, CKD, COPD/emphysema, CAD, DM, GERD, Hypertension, lung nodules, syncope in 2022 and hypercholesteremia, chest tube September of 2023, and bronchoscopy in 2023 . In ED, she was found to haveHgb 6.6, WBC 11, BNP 3683, ALT 49, AG 16, and CO2 18. She received one unit of pRBC in ED, and was admitted for medical management. She had a colonoscopy last year without any reported issues. The patient occasionally experiences epigastric pain with some lower abdominal pain, which she describes as gassy, and believes she has always been gassy. She endorses a 50-pound weight loss over the past year, which is being worked up by her PCP. Iron studies showed iron deficiency anemia - discussed patient getting iron tranfusion prior to discharge. The patient has a history of organizing pneumonia with numerous nodules that come and go and changein size, followed by pulmonology. She has been on a prolonged prednisone course for this condition and is currently being slowly weaned off. The patient reports slight edema in the left lower extremity, which has been present for the past couple of weeks. Interval History: Overnight - feeling OK - but has not got out of bed yet so unsure if SOB or dizziness still resume.Unsure if blood in her stool, states that she typically does not look at her stool. No abdomen pain at this time, no previous history of abnormal colonscopy, States that he blood pressure is typically in 140s No overnight issues. Case and plan discussed with patient and bedside nurse. All questions answered. Adult diet Regular; 4 carb choices (60 gm/meal) 24HR INTAKE/OUTPUT: Intake/Output Summary (Last 24 hours) at 11/09/2024 0846 Last data filed at 11/09/2024 0842 Gross per 24 hour Intake 1031 ml Output -- Net 1031 ml Past Medical History: Past Medical History: Diagnosis Date Arrhythmia Arthritis Asthma Breast cancer (HCC) 1993 Right Breast(Mastectomy) Breast cancer (HCC) 2010 Left Breast(Simple Mastectomy, SLND) Chronic kidney disease COPD (chronic obstructive pulmonary disease) (HCC) Coronary artery disease Diabetes (HCC) Emphysema of lung (HCC) Within last year GERD (gastroesophageal reflux disease) High blood pressure Lung nodule -2022 Occlusion and stenosis of unspecified carotid artery Pure hypercholesterolemia Syncope and collapse 08/29/2022 LABS: CBC: Recent Labs 11/07/24 1238 11/08/24 1419 11/08/24200711/09/24 0501 WBC 10.6 11.0* -- -- RBC 2.53* 2.39* -- -- HGB 7.1* 6.6* 7.5* 7.2* HCT 22.9* 21.3* 23.2* 22.6* MCV 90.5 89.1 -- -- RDW 15.4* 16.0* -- -- PLT 406* 298 -- -- BMP: Recent Labs 11/07/24 1238 11/08/24 1419 11/09/24 0501 NA -- 139 138 K -- 3.9 3.6 CL -- 105 107 CO2 23 18* 21* BUN 24 23 19 CREATININE 0.88 0.91 0.77 GLUCOSE 103* 152* 118* CALCIUM 9.0 8.5* 7.8* ANIONGAP -- 16* 10 LIVER PROFILE: Recent Labs 11/07/24 1238 11/08/24 1419 AST 102* 32 ALT 66* 49* BILITOT 0.7 0.6 ALKPHOS 55 49 PROT 6.0* 5.5* PT/INR: Recent Labs 11/09/24 0501 PROTIME 11.8 INR 1.1 CARDIAC ENZYMES: No results for input(s): TROPONINI in the last 72 hours. Procalcitonin: No results found for: PROCAL COVID-19 PCR: No results for input(s): COVID19 in the last 72 hours. Objective: Vitals: BP 137/50 Pulse 69 Temp 36.6 C (97.9 F) (Temporal) Resp 20 Ht 5' 7 (1.702 m) Wt 133 lb 13.1 oz (60.7 kg) SpO2 96% BMI 20.96 kg/m Pulse Ox: SpO2 Av.7 % Min: 94 % Max: 100 % Supplemental O2: Physical Exam Physical Examination - General: Appears in no acute distress, slightly pale conjunctiva. - Head, Eyes, Ears, Nose, Throat: Normal dentition. - Cardiovascular: Murmur appreciated left sternal and right sternal border. - Respiratory: Lungs clear to bases bilaterally. - Abdomen: Epigastric tenderness on palpation with no abdominal distension or rigidity. Lower left quadrant abdominal tenderness. - Extremities: Slight edema to left lower extremity. Calf shows no tenderness bilaterally, no enlargement compared to other side. Strong pedal and radial pulses. Medications: Scheduled PRN amLODIPine, 2.5 mg, Oral, Daily [Held by provider] apixaban, 5 mg, Oral, BID atovaquone, 1,500 mg, Oral, Daily carvedilol, 12.5 mg, Oral, BID WC ezetimibe, 10 mg, Oral, Daily Finerenone, 1 tablet, Oral, Daily metFORMIN XR, 2,000 mg, Oral, Daily with breakfast And linaGLIPtin, 5 mg, Oral, Daily with breakfast losartan, 100 mg, Oral, Daily pantoprazole (ProtoNix) 40 mg in sodium chloride (PF) 0.9 % 10 mL injection, 40 mg, IntraVENous, qAM AC PRN medications: acetaminophen OR acetaminophen, ondansetron ODT OR ondansetron, polyethylene glycol (PEG) 3350, sodium chloride Continuous Assessment Data: (CAT1) Reviewed 3 or more notes from different specialty or health system (each=1). (CAT1) Reviewed 3 or more labs/studies ordered by another provider not previously counted (each=1, panels count as 1). (CAT1) Ordered 3 or more new labs and/or studies (each=1, panels count as 1). (LOW: 2x CAT1 or independent historian MOD: 3x CAT1 or 1x CAT3 EXTENSIVE: 3x CAT1 and 1x CAT3) Acute, acute on chronic, unstable/uncontrolled chronic problems/diagnoses: Severe Iron Deficiency Anemia 79-year-old female presented to the emergency department with hemoglobin of 6.66, which improved to7.2 the following morning. Patient reports increased shortness of breath, dizziness, and lightheadedness. Iron studies confirmed iron-deficient anemia, likely associated with positive occult blood. Physical examination revealed slightly pale conjunctiva. The patient also reports a 50- pound weight loss over the past year, which is being investigated by her PCP. - Anticipate iron therapy - Transfuse is <7 - Consult gastroenterology for potential colonoscopy - Monitor hemoglobin levels - repeat at 1400 - NPO at midnight Shortness of breath on exertion - multifactorial - associated with anemia and organizing pneumonia Organizing Pneumonia with Pulmonary Nodules COPD with emphysema Lung nodules Patient is being followed by pulmonology for organizing pneumonia with numerous nodules that come and go and change in size. Currently on a prolonged prednisone course with ongoing taper. - Consult pulmonology to maintain current prednisone taper - Referred to Dr. Álvarez - from Dr Wren for reassessment of nodules - Continue Atorvaquone 1500 mg PO daily by pulmonology Abdominal Pain Patient reports occasional epigastric pain with some lower abdominal pain, described as gassy. Physical examination revealed epigastric tenderness on palpation and lower left quadrant abdominal tenderness. No abdominal distension or rigidity noted. - Await gastroenterology consultation and potential colonoscopy Left Lower Extremity Edema Patient reports slight edema in the left lower extremity for the past couple of weeks. Physical examination showed no calf tenderness, no bilateral enlargement compared to the other side, and strong pedal and radial pulses. 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 CAD Bilateral Carotid stenosis PAF on Eliquis hold eliquis Hypertension Hypercholesteremia - Amldopine 2.5 mg PO daily - Carvedilol 12.5 mg PO daily - Zetira 10 mg PO daily - Losartan 100 mg PO daily Type 2 DM - HOLD metformin - in case there may need to be a CTA - to protect the kindney - continue finerenone, liragliptin - low carb diet - Will hold of insulin unless BS >200 CKD stage 2 GERD - on PPI Plan As a result of the above findings & factors, the following mgmt was pursued: - 11/09- VS, labs reviewed, Hemoglobin stable - and to be repeated at 1400 - plt dropped but given complete drop - will follow up with repeat labs before considering FRANCINE - pulmonology consult, awaiting GI plan for anemia and bleeding, NPO diet per GI. - am labs, replace lytes prn - PT/OT/CM/SW - delirium precautions: increase activity and limit nighttime disturbances - DVT prophylaxis: encourage ambulation, already anticoagulated, and holding eliquis for GIB Complexity: Chronic illness with mild to moderate exacerbation, progression, or side effect of tx (MOD). Risk: Admission to hospital-level care was considered or occurred (HIGH). Consult to surgery for emergency major surgery, or major surgery with identified patient or procedural risk factors, was considered or occurred (HIGH). Advance Directive: Full Code Anticipated Discharge - Date - - Location - home - Pending the following - clinical improvement Total time spent (which include face to face and non face to face encounters) : 51 minutes Toxic drug monitoring/narrow therapeutic index drug monitoring : # Drug name : Eliqusi # Route administered : oral # Method of monitoring : montior for bleeding - and holding monitor for any neurological deficiency Extended Emergency Contact Information Primary Emergency Contact: Jin Peters Address: [address] [place], [place] [id number] [facility] Relation: Spouse Secondary Emergency Contact: Ene Negrete Address: [address] [place] [address] [facility] Relation: Daughter Nel Toledo MD Division of Hospitalist Medicine [facility] documented in this encounterSSt. John of God [id number] Nurse Note* Perioperative Nursing Note - Kari Schultz RN - 11/10/2024 12:19 PM EDT Report called to nolan rollins 2 [email or web address] POST ENDOSCOPY PROCEDURE TRANSFER REPORT Procedure completed: EGD Findings:hiatle hernia Specimens obtained: n/a Medications administered: propofol Additional Info: No adverse events or complications. For additional Questions please call Endoscopy at [phone]. Thank You! [facility] [id number] Procedure note* Op Note - Stan Jama DO - 11/10/2024 11:38 AM EDT [facility] Name[facility] Rolando Peters Procedure Date: 11/10/2024 11:38 AM Gender: Female Date of : 1945 Age: 79 Admit Type: Inpatient Note Status: Finalized Endoscopist: Stan Jama DO, [id number] Procedure: Upper GI endoscopy Indications: Iron deficiency anemia secondary to chronic blood loss, Heme positive stool Findings: The examined esophagus was normal. A hiatal hernia was found. The proximal extent of the gastric folds (end of tubular esophagus) was 41 cm from the incisors. The hiatal narrowing was 44 cm from the incisors. The hernia appeared to be medium in volume. The Z-line was regular and was found 41 cm from the incisors. The entire examined stomach, cardia (on retroflexion) and gastric fundus (on retroflexion) were normal. The duodenal bulb, second portion of the duodenum and third portion of the duodenum were normal. Impression: - Normal esophagus. - Hiatal hernia. - Z-line regular, 41 cm from the incisors. - Normal stomach, cardia and gastric fundus. - Normal duodenal bulb, second portion of the duodenum and third portion of the duodenum. - No specimens collected. Recommendation: - Patient has a contact number available for emergencies. The signs and symptoms of potential delayed complications were discussed with the patient. Return to normal activities tomorrow. Written discharge instructions were provided to the patient. - Resume previous diet. - Continue present medications. - Monitor hgb and transfuse as needed - Okay to resume Eliquis with close monitoring of hgb - Outpatient colonoscopy with Dr. Lindsay +/- small bowel capsule if necessary Referring MD: Celia Al Medicines: Monitored Anesthesia Care, See the Anesthesia note for documentation of the administered medications Procedure: Pre-Anesthesia Assessment: - Prior to the procedure, a History and Physical was performed, and patient medications and allergies were reviewed. The patient's tolerance of previous anesthesia was also reviewed. The risks and benefits of the procedure and the sedation options and risks were discussed with the patient. All questions were answered, and informed consent was obtained. Prior Anticoagulants: The patient last took Eliquis (apixaban) 2 days prior to the procedure. ASA Grade Assessment: III - A patient with severe systemic disease. After reviewing the risks and benefits, the patient was deemed in satisfactory condition to undergo the procedure. After obtaining informed consent, the endoscope was passed under direct vision. Throughout the procedure, the patient's blood pressure, pulse, and oxygen saturations were monitored continuously. The Endoscope was introduced through the mouth, and advanced to the third part of duodenum. The upper GI endoscopy was accomplished without difficulty. The patient tolerated the procedure well. Complications: No immediate complications. Procedure Code(s): --- Professional --- 53366, Esophagogastroduodenoscopy, flexible, transoral; diagnostic, including collection of specimen(s) by brushing or washing, when performed (separate procedure) --- Technical --- 71181, Esophagogastroduodenoscopy, flexible, transoral; diagnostic, including collection of specimen(s) by brushing or washing, when performed (separate procedure) Diagnosis Code(s): --- Professional --- K44.9, Diaphragmatic hernia without obstruction or gangrene D50.0, Iron deficiency anemia secondary to blood loss (chronic) R19.5, Other fecal abnormalities --- Technical --- K44.9, Diaphragmatic hernia without obstruction or gangrene D50.0, Iron deficiency anemia secondary to blood loss (chronic) R19.5, Other fecal abnormalities CPT copyright 2021 [employer]. All rights reserved. The codes documented in this report are preliminary and upon structural steel detailer review may be revised to meet current compliance requirements. Attending Participation: I personally performed the entire procedure. Stan Jama DO 11/10/2024 12:11:18 PM This report has been signed electronically. Number of Addenda: 0 Note Initiated On: 11/10/2024 11:38 AM [facility] [id number] Consult note* Stephanie Arana DO - 11/10/2024 10:15 AM EDTAssociated Order(s): Inpatient consult to Pulmonology PULMONOLOGY CONSULT NOTE 11/10/2024 10:15 AM Reason for consult: Weakness Inpatient consult to Pulmonology Consult performed by: Stephanie Arana DO Consult ordered by: Nel Toledo MD Subjective: Admit Date: 11/08/2024 PCP: CELIA AL DO HPI: Rolando Peters is a 79 y.o. 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 Reported she had had worsening weakness at home. Evaluated by her cementer oil well earlier this week, found with worsening anemia and FOBT positive. Denied any respiratory complaints including SOB, cough, wheezing, chest tightness. S/p EGD earlier today which was negative. Past Medical History: Past Medical History: Diagnosis Date Arrhythmia Arthritis Asthma Breast cancer (HCC) 1993 Right Breast(Mastectomy) Breast cancer (HCC) 2010 Left Breast(Simple Mastectomy, SLND) Chronic kidney disease COPD (chronic obstructive pulmonary disease) (HCC) Coronary artery disease Diabetes (HCC) Emphysema of lung (HCC) Within last year GERD (gastroesophageal reflux disease) High blood pressure Lung nodule -2022 Occlusion and stenosis of unspecified carotid artery Pure hypercholesterolemia Syncope and collapse 08/29/2022 Past Surgical History: Past Surgical History: Procedure Laterality Date BRONCHOSCOPY CARDIAC ELECTROPHYSIOLOGY PROCEDURE N/A 05/05/2024 Performed by Walt Leigh MD at [facility] Cardiac Cath/EP Lab CAROTID ENDARTERECTOMY Right 2008 CATARACT EXTRACTION Bilateral 2006 CHEST TUBE INSERTION Right 10/05/2023 ENDOBRONCHIAL ULTRASOUND EBUS (HISTORICAL) 10/05/2023 LUNG BIOPSY MASTECTOMY Left 2010 simple/reconstruction/gingivagrapht MASTECTOMY Right 1993 reconstruction (TRAM) TOTAL ABDOMINAL HYSTERECTOMY W/ BILATERAL SALPINGOOPHORECTOMY 1998 TUBAL LIGATION 1978 Allergies: Allergies Allergen Reactions Isosulfan Blue Anaphylaxis Methylene Blue Sulfa Antibiotics Rash Social History: Social History Substance and Sexual Activity Alcohol Use Yes Alcohol/week: 2.0 - 16.0 standard drinks of alcohol Types: 2 Glasses of wine per week Comment: occ Social History Substance and Sexual Activity Drug Use No Comment: caffeine use: 1 cup of coffee a day Social History Tobacco Use Smoking Status Former Current packs/day: 0.00 Average packs/day: 1 pack/day for 30.0 years (30.0 ttl pk-yrs) Types: Cigarettes Start date: 08/17/1963 Quit date: 08/17/1993 Years since quittin.2 Smokeless Tobacco Never Tobacco Comments , 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[facility], 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, 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 Family History: Family History Problem Relation Name Age of Onset Ovarian cancer Mother 66 Heart attack Father Lucita (Mother) 76 High Blood Pressure Father Lucita (Mother) Macular degeneration Father Lucita (Mother) Cancer Father Lucita (Mother) Ovarian cancer Mother's Sister 45 Other ([id number]) Son neuofibromatosis, BRCA1 positive Neurofibromatosis Son High Blood Pressure Son Cancer Son hairy cell leukemia Breast cancer Cousin 42 +brca Bladder Cancer Cousin 19 Hypertension Sister Angie Kidney disease Sister Angie Hypertension Sister Mireya Sister Kidney disease Sister Mireya Sister Review of Systems Constitutional: Negative. Respiratory: Negative. Cardiovascular: Negative. Neurological: Positive for weakness. Medications: Scheduled Meds:amLODIPine, 2.5 mg, Oral, Daily [Held by provider] apixaban, 5 mg, Oral, BID atovaquone, 1,500 mg, Oral, Daily carvedilol, 12.5 mg, Oral, BID WC ezetimibe, 10 mg, Oral, Daily Finerenone, 1 tablet, Oral, Daily linaGLIPtin, 5 mg, Oral, Daily with breakfast losartan, 100 mg, Oral, Daily pantoprazole (ProtoNix) 40 mg in sodium chloride (PF) 0.9 % 10 mL injection, 40 mg, IntraVENous, qAM AC predniSONE, 15 mg, Oral, Daily Continuous Infusions: Labs: Available labs were personally reviewed. Some notable findings are listed here. CBC: Recent Labs 11/07/24 1238 11/08/24 1419 11/08/24 2008 11/09/24 2305 11/10/24 0110 11/10/24 0817 WBC 10.6 11.0* -- -- 8.1 -- HGB 7.1* 6.6* < > 8.1* 7.4* 7.4* PLT 406* 298 -- -- 276 -- < > = values in this interval not displayed. BMP: Recent Labs 11/08/24 1419 11/09/24 0501 11/10/24 0110 NA 139 138 135* K 3.9 3.6 4.3 CL 105 107 105 CO2 18* 21* 20* BUN 23 19 16 CREATININE 0.91 0.77 0.80 GLUCOSE 152* 118* 229* Hepatic: Recent Labs 11/07/24 1238 11/08/24 1419 AST 102* 32 ALT 66* 49* BILITOT 0.7 0.6 ALKPHOS 55 49 Troponin:No results for input(s): TROPONINI in the last 72 hours. BNP: Recent Labs 11/08/24 1419 BNP 3,683* : No results for input(s): CHOL, HDL in the last 72 hours. No lab exists for component: LDLCALCU INR: Recent Labs 11/09/24 0501 INR 1.1 Imaging: Available studies were personally reviewed. Salient findings are summarized in HPI and A/P Objective: Vitals: BP (!) 133/49 (BP Location: Right arm, Patient Position: Lying) Pulse 82 Temp 36.5 C (97.7 F) (Temporal) Resp 18 Ht 5' 7 (1.702 m) Wt 133 lb 13.1 oz (60.7 kg) SpO2 96% BMI 20.96 kg/m Physical Exam Vitals reviewed. Constitutional: General: She is not in acute distress. Appearance: Normal appearance. HENT: Head: Normocephalic and atraumatic. Nose: No congestion. Mouth/Throat: Mouth: Mucous membranes are moist. Eyes: General: No scleral icterus. Extraocular Movements: Extraocular movements intact. Cardiovascular: Rate and Rhythm: Normal rate and regular rhythm. Pulmonary: Effort: Pulmonary effort is normal. No respiratory distress. Breath sounds: Normal breath sounds. No wheezing, rhonchi or rales. Musculoskeletal: General: No swelling or tenderness. Skin: General: Skin is warm and dry. Neurological: Mental Status: She is alert and oriented to person, place, and time. Psychiatric: Mood and Affect: Mood normal. Assessment and Plan: Anemia Waxing and waning pulmonary nodules, OP HF Afib PH COPD/asthma INGA S/p EGD this morning which was negative, recommended for outpatient colonoscopy Have been tapering prednisone. Decrease to 20mg daily x 2 weeks tomorrow, then 15 mg daily x 2 weeks. C/w atovaquone for now, can d/c once on prednisone 15mg daily. Once on prednisone 10mg daily willcontinue x 4 weeks and then taper to 5mg daily x 4 weeks. C/w spiriva and albuterol prn. C/w home auto CPAP Will keep previously scheduled follow up with Dr. Latasha Arana DO Pulmonary and Critical Care Portions of the information within this encounter were entered using an electronic dictation system. Best attempts were made to edit/proofread the information prior to note completion. Despite the review of information, some errors may remain. If there are questions related to the information contained within the note please contact the signing physician directly. [facility]03-27-2025 Consult note* Stephanie Arana DO - 11/10/2024 10:15 AM EDTAssociated Order(s): Inpatient consult to Pulmonology PULMONOLOGY CONSULT NOTE 11/10/2024 10:15 AM Reason for consult: Weakness Inpatient consult to Pulmonology Consult performed by: Stephanie Arana DO Consult ordered by: Nel Toledo MD Subjective: Admit Date: 11/08/2024 PCP: CELIA AL DO HPI: Rolando Peters is a 79 y.o. 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 Reported she had had worsening weakness at home. Evaluated by her [employer] earlier this week, found with worsening anemia and FOBT positive. Denied any respiratory complaints including SOB, cough, wheezing, chest tightness. S/p EGD earlier today which was negative. Past Medical History: Past Medical History: Diagnosis Date Arrhythmia Arthritis Asthma Breast cancer (HCC) 1993 Right Breast(Mastectomy) Breast cancer (HCC) 2010 Left Breast(Simple Mastectomy, SLND) Chronic kidney disease COPD (chronic obstructive pulmonary disease) (HCC) Coronary artery disease Diabetes (HCC) Emphysema of lung (HCC) Within last year GERD (gastroesophageal reflux disease) High blood pressure Lung nodule -2022 Occlusion and stenosis of unspecified carotid artery Pure hypercholesterolemia Syncope and collapse 08/29/2022 Past Surgical History: Past Surgical History: Procedure Laterality Date BRONCHOSCOPY CARDIAC ELECTROPHYSIOLOGY PROCEDURE N/A 05/05/2024 Performed by Walt Leigh MD at [facility] Cardiac Cath/EP Lab CAROTID ENDARTERECTOMY Right 2008 CATARACT EXTRACTION Bilateral 2006 CHEST TUBE INSERTION Right 10/05/2023 ENDOBRONCHIAL ULTRASOUND EBUS (HISTORICAL) 10/05/2023 LUNG BIOPSY MASTECTOMY Left 2010 simple/reconstruction/gingivagrapht MASTECTOMY Right 1993 reconstruction (TRAM) TOTAL ABDOMINAL HYSTERECTOMY W/ BILATERAL SALPINGOOPHORECTOMY 1998 TUBAL LIGATION 1979 Allergies: Allergies Allergen Reactions Isosulfan Blue Anaphylaxis Methylene Blue Sulfa Antibiotics Rash Social History: Social History Substance and Sexual Activity Alcohol Use Yes Alcohol/week: 2.0 - 16.0 standard drinks of alcohol Types: 2 Glasses of wine per week Comment: occ Social History Substance and Sexual Activity Drug Use No Comment: caffeine use: 1 cup of coffee a day Social History Tobacco Use Smoking Status Former Current packs/day: 0.00 Average packs/day: 1 pack/day for 30.0 years (30.0 ttl pk-yrs) Types: Cigarettes Start date: 08/17/1963 Quit date: 08/17/1993 Years since quittin.2 Smokeless Tobacco Never Tobacco Comments , 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[facility], 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, 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 Family History: Family History Problem Relation Name Age of Onset Ovarian cancer Mother 66 Heart attack Father Lucita (Mother) 76 High Blood Pressure Father Lucita (Mother) Macular degeneration Father Lucita (Mother) Cancer Father Lucita (Mother) Ovarian cancer Mother's Sister 45 Other ([id number]) Son neuofibromatosis, BRCA1 positive Neurofibromatosis Son High Blood Pressure Son Cancer Son hairy cell leukemia Breast cancer Cousin 42 +brca Bladder Cancer Cousin 19 Hypertension Sister Angie Kidney disease Sister Angie Hypertension Sister Mireya Sister Kidney disease Sister Mireya Sister Review of Systems Constitutional: Negative. Respiratory: Negative. Cardiovascular: Negative. Neurological: Positive for weakness. Medications: Scheduled Meds:amLODIPine, 2.5 mg, Oral, Daily [Held by provider] apixaban, 5 mg, Oral, BID atovaquone, 1,500 mg, Oral, Daily carvedilol, 12.5 mg, Oral, BID WC ezetimibe, 10 mg, Oral, Daily Finerenone, 1 tablet, Oral, Daily linaGLIPtin, 5 mg, Oral, Daily with breakfast losartan, 100 mg, Oral, Daily pantoprazole (ProtoNix) 40 mg in sodium chloride (PF) 0.9 % 10 mL injection, 40 mg, IntraVENous, qAM AC predniSONE, 15 mg, Oral, Daily Continuous Infusions: Labs: Available labs were personally reviewed. Some notable findings are listed here. CBC: Recent Labs 11/07/24 1238 11/08/24 1419 11/08/24 2008 11/09/24 2305 11/10/24 0110 11/10/24 0817 WBC 10.6 11.0* -- -- 8.1 -- HGB 7.1* 6.6* < > 8.1* 7.4* 7.4* PLT 406* 298 -- -- 276 -- < > = values in this interval not displayed. BMP: Recent Labs 11/08/24 1419 11/09/24 0501 11/10/24 0110 NA 139 138 135* K 3.9 3.6 4.3 CL 105 107 105 CO2 18* 21* 20* BUN 23 19 16 CREATININE 0.91 0.77 0.80 GLUCOSE 152* 118* 229* Hepatic: Recent Labs 11/07/24 1238 11/08/24 1419 AST 102* 32 ALT 66* 49* BILITOT 0.7 0.6 ALKPHOS 55 49 Troponin:No results for input(s): TROPONINI in the last 72 hours. BNP: Recent Labs 11/08/24 1419 BNP 3,683* : No results for input(s): CHOL, HDL in the last 72 hours. No lab exists for component: LDLCALCU INR: Recent Labs 11/09/24 0501 INR 1.1 Imaging: Available studies were personally reviewed. Salient findings are summarized in HPI and A/P Objective: Vitals: BP (!) 133/49 (BP Location: Right arm, Patient Position: Lying) Pulse 82 Temp 36.5 C (97.7 F) (Temporal) Resp 18 Ht 5' 7 (1.702 m) Wt 133 lb 13.1 oz (60.7 kg) SpO2 96% BMI 20.96 kg/m Physical Exam Vitals reviewed. Constitutional: General: She is not in acute distress. Appearance: Normal appearance. HENT: Head: Normocephalic and atraumatic. Nose: No congestion. Mouth/Throat: Mouth: Mucous membranes are moist. Eyes: General: No scleral icterus. Extraocular Movements: Extraocular movements intact. Cardiovascular: Rate and Rhythm: Normal rate and regular rhythm. Pulmonary: Effort: Pulmonary effort is normal. No respiratory distress. Breath sounds: Normal breath sounds. No wheezing, rhonchi or rales. Musculoskeletal: General: No swelling or tenderness. Skin: General: Skin is warm and dry. Neurological: Mental Status: She is alert and oriented to person, place, and time. Psychiatric: Mood and Affect: Mood normal. Assessment and Plan: Anemia Waxing and waning pulmonary nodules, OP HF Afib PH COPD/asthma INGA S/p EGD this morning which was negative, recommended for outpatient colonoscopy Have been tapering prednisone. Decrease to 20mg daily x 2 weeks tomorrow, then 15 mg daily x 2 weeks. C/w atovaquone for now, can d/c once on prednisone 15mg daily. Once on prednisone 10mg daily willcontinue x 4 weeks and then taper to 5mg daily x 4 weeks. C/w spiriva and albuterol prn. C/w home auto CPAP Will keep previously scheduled follow up with Dr. Latasha Arana DO Pulmonary and Critical Care Portions of the information within this encounter were entered using an electronic dictation system. Best attempts were made to edit/proofread the information prior to note completion. Despite the review of information, some errors may remain. If there are questions related to the information contained within the note please contact the signing physician directly. * Stan Jama DO - 11/09/2024 12:20 PM EDTAssociated Order(s): IP CONSULT TO GI Images from the original note were not included. GASTROENTEROLOGY CONSULTATION REASON FOR CONSULT: The patient was seen in consultation at the request of Dr. Toledo re: Anemia,Hgb 6.6 HISTORY OF PRESENT ILLNESS: The patient is a 79 y.o. 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 Hemoglobin was7.1 from 10.0 in August this past year. Noted to have heme positive stools in the ED. From a GI standpoint is essentially asymptomatic. Denies any nausea, vomiting, hematemesis, heartburn, reflux naseem regular basis. She may have noted some dark stools over the past few weeks, but attributed this to red wine she had been drinking. She consumes approximately 1 to 2 glasses of wine nightly. S/p 1U PRBC. Repeat hemoglobin this a.m. 7.2. Remains on a PPI as an outpatient. No excessive NSAID use. No prior history of GI bleeding. Follows with Dr. Ernestina Bolanos. Last EGD and colonoscopy 02/16/2023 significant for GERD related changes in the esophagus and a small diminutive polyp in the sigmoid colon with small internal hemorrhoids. Currently denies any lightheadedness, dizziness, F/C/S. Eliquis has been placed on hold since yesterday morning. PAST MEDICAL HISTORY: Past Medical History: Diagnosis Date Arrhythmia Arthritis Asthma Breast cancer (HCC) 1993 Right Breast(Mastectomy) Breast cancer (HCC) 2010 Left Breast(Simple Mastectomy, SLND) Chronic kidney disease COPD (chronic obstructive pulmonary disease) (HCC) Coronary artery disease Diabetes (HCC) Emphysema of lung (HCC) Within last year GERD (gastroesophageal reflux disease) High blood pressure Lung nodule -2022 Occlusion and stenosis of unspecified carotid artery Pure hypercholesterolemia Syncope and collapse 08/29/2022 PAST SURGICAL HISTORY: Past Surgical History: Procedure Laterality Date BRONCHOSCOPY CARDIAC ELECTROPHYSIOLOGY PROCEDURE N/A 05/05/2024 Performed by Walt Leigh MD at [facility] Cardiac Cath/EP Lab CAROTID ENDARTERECTOMY Right 2008 CATARACT EXTRACTION Bilateral 2006 CHEST TUBE INSERTION Right 10/05/2023 ENDOBRONCHIAL ULTRASOUND EBUS (HISTORICAL) 10/05/2023 LUNG BIOPSY MASTECTOMY Left 2010 simple/reconstruction/gingivagrapht MASTECTOMY Right 1993 reconstruction (TRAM) TOTAL ABDOMINAL HYSTERECTOMY W/ BILATERAL SALPINGOOPHORECTOMY 1998 TUBAL LIGATION 1978 SOCIAL HISTORY: TOBACCO: Social History Tobacco Use Smoking Status Former Current packs/day: 0.00 Average packs/day: 1 pack/day for 30.0 years (30.0 ttl pk-yrs) Types: Cigarettes Start date: 08/17/1963 Quit date: 08/17/1993 Years since quittin.2 Smokeless Tobacco Never Tobacco Comments , 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[facility], 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, 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 ETOH: Alcohol Use: Not At Risk (11/08/2024) AUDIT-C Frequency of Alcohol Consumption: Never Average Number of Drinks: Patient does not drink Frequency of Binge Drinking: Never DRUGS: Social History Substance and Sexual Activity Drug Use No Comment: caffeine use: 1 cup of coffee a day FAMILY HISTORY: Family History Problem Relation Name Age of Onset Ovarian cancer Mother 66 Heart attack Father Lucita (Mother) 76 High Blood Pressure Father Lucita (Mother) Macular degeneration Father Lucita (Mother) Cancer Father Lucita (Mother) Ovarian cancer Mother's Sister 45 Other ([id number]) Son neuofibromatosis, BRCA1 positive Neurofibromatosis Son High Blood Pressure Son Cancer Son hairy cell leukemia Breast cancer Cousin 42 +brca Bladder Cancer Cousin 19 Hypertension Sister Angie Kidney disease Sister Angie Hypertension Sister Mireya Sister Kidney disease Sister Mireya Sister MEDICATIONS PRIOR TO ADMISSION: Current Outpatient Medications Medication Instructions albuterol (Ventolin HFA) 108 (90 Base) MCG/ACT inhaler 2 puffs, Inhalation, Every 4 hours PRN amLODIPine (NORVASC) 2.5 mg, Oral, Daily apixaban (ELIQUIS) 5 mg, Oral, 2 times daily carvedilol (COREG) 12.5 mg, Oral, 2 times daily with meals cholecalciferol (VITAMIN D-3) 4,000 Units, Daily Contour Next Test test strip USE ONE strip TO test TWICE DAILY Cyanocobalamin (B-12) 1000 MCG capsule 1 tablet, Daily ezetimibe (ZETIA) 10 mg, Oral, Daily Finerenone (Kerendia) 10 MG tablet 1 tablet, Daily fluticasone (Cutivate) 0.05 % cream Daily PRN furosemide (LASIX) 20 mg, Oral, Daily Icosapent Ethyl (VASCEPA) 2 g, Oral, 2 times daily with meals Jentadueto XR 2.5-1000 MG per 24 hr tablet take 2 tablets by mouth once daily lansoprazole (Prevacid) [address] capsule 1 capsule, Daily losartan (COZAAR) 100 mg, Oral, Daily Multiple Vitamins-Minerals (MULTIPLE VITAMINS/WOMENS PO) Daily predniSONE (Deltasone) 5 MG tablet Take with 10mg prednisone for 15mg daily rosuvastatin (Crestor) 10 MG tablet Daily sertraline (ZOLOFT) 25 mg, Oral, Daily tiotropium (Spiriva Respimat) 2.5 MCG/ACT inhaler 2 puffs, Inhalation, Daily CURRENT MEDICATIONS: Current Facility-Administered Medications: acetaminophen (Tylenol) tablet 650 mg, 650 mg, Oral, q6h PRN OR acetaminophen (Tylenol) suppository 650 mg, 650 mg, Rectal, q6h PRN, SUJATA Triana CNP amLODIPine (Norvasc) tablet 2.5 mg, 2.5 mg, Oral, Daily, SUJATA Triana CNP, 2.5 mg at 11/09/24 0935 [Held by provider] apixaban (Eliquis) tablet 5 mg, 5 mg, Oral, BID, SUJATA Triana CNP atovaquone (Mepron) suspension 1,500 mg, 1,500 mg, Oral, Daily, SUJATA Triana CNP, 1,500 mg at 11/09/24 0934 carvedilol (Coreg) tablet 12.5 mg, 12.5 mg, Oral, BID WC, Beti Bernal APRN - [place], 12.5 mg at 11/09/24 09 ezetimibe (Zetia) tablet 10 mg, 10 mg, Oral, Daily, Beti Bernal APRN - [place], 10 mg at 11/09/24 0935 Finerenone tablet 1 tablet, 1 tablet, Oral, Daily, SUJATA Triana CNP metFORMIN XR (Glucophage-XR) 24 hr tablet 2,000 mg, 2,000 mg, Oral, Daily with breakfast, 2,000 mg at 11/09/24 0934 AND linaGLIPtin (Tradjenta) tablet 5 mg, 5 mg, Oral, Daily with breakfast, Beti Bernal APRN - [place], 5 mg at 11/09/24 09 losartan (Cozaar) tablet 100 mg, 100 mg, Oral, Daily, Beti Bernal APRN - [place], 100 mg at 11/09/24 0935 ondansetron ODT (Zofran-ODT) disintegrating tablet 4 mg, 4 mg, Oral, q8h PRN OR ondansetron (Zofran) injection 4 mg, 4 mg, IntraVENous, q6h PRN, Beti Bernal APRN - [place] pantoprazole (ProtoNix) 40 mg in sodium chloride (PF) 0.9 % 10 mL injection, 40 mg, IntraVENous, qAM AC, Beti Bernal APRN - [place], 40 mg at 11/09/24 0500 polyethylene glycol (PEG) 3350 (Miralax) packet 17 g, 17 g, Oral, Daily PRN, Beti Bernal APRN - [place] sodium chloride 0.9 % infusion, 250 mL/hr, IntraVENous, PRN, Ned DO Christiano ALLERGIES: Allergies Allergen Reactions Isosulfan Blue Anaphylaxis Methylene Blue Sulfa Antibiotics Rash REVIEW OF SYMPTOMS: Ten-point review of symptoms was noted and reviewed in the chart. PHYSICAL EXAM VS:vBP (!) 158/43 Pulse 72 Temp 36.4 C (97.5 F) (Temporal) Resp 16 Ht 5' 7 (1.702 m) Wt 133 lb 13.1 oz (60.7 kg) SpO2 96% BMI 20.96 kg/m Body mass index is 20.96 kg/m . GENERAL: Pleasant and NAD. HEENT: Scleral anicteric. Oropharhynx clear with no erythema or exudate. CV: RRR, NL S1/S2, no murmurs. LUNGS: CTA b/l. No W/R/R. ABDOMEN: ,soft, non-tender and non-distended, + BS. No hepatosplenomegaly. No mass felt. No reboundor guarding. EXT: No C/C/E. MUSCULOSKELETALl: Strength 5/5 in all exts. NEURO: A&O x 3, No obvious focal deficits. PSYCH: Normal affect and speech. LABS AND IMAGING: Recent blood work and relevant radiologic and endoscopic studies were reviewed and discussed with the patient. Results from last 7 days Lab Units 11/09/24 0501 11/08/24200711/08/24 14111/07/24 1238 WBC Thousand/uL -- -- -- 10.6 WBC AUTO 10*3/uL -- -- 11.0* -- HEMOGLOBIN g/dL 7.2* 7.5* 6.6* 7.1* HEMATOCRIT % 22.6* 23.2* 21.3* 22.9* PLATELETS 10*3/uL -- -- 298 406* Results from last 7 days Lab Units 11/09/24 05011/08/24141811/07/24 1238 SODIUM mmol/L 138 139 -- POTASSIUM mmol/L 3.6 3.9 -- CHLORIDE mmol/L 107 105 -- CO2 mmol/L 21* 18* 23 BUN mg/dL 19 23 24 CREATININE mg/dL 0.77 0.91 0.88 CALCIUM mg/dL 7.8* 8.5* 9.0 PROTEIN, TOTAL g/dL -- -- 6.0* PROTEIN TOTAL g/dL -- 5.5* -- BILIRUBIN TOTAL mg/dL -- 0.6 0.7 ALK PHOS U/L -- 49 55 ALT U/L -- 49* 66* AST U/L -- 32 102* GLUCOSE mg/dL 118* 152* 103* Results from last 7 days Lab Units 11/09/24 0501 INR 1.1 ASSESSMENT: Normocytic anemia FOBT +: Rule out GI blood loss exacerbated by Eliquis. Consider upper GI source given reported dark stools over the past few weeks. Rule out esophagitis, gastritis, PUD, AVMs. No other obvious source of bleeding on EGD/colonoscopy within the past 2 years. However, if no evidence of an upper GI source then could consider colonic source versus small bowel bleeding. Other possibilities include anemia secondary to CKD, ACD GERD Personal history of colon polyps PAF on Eliquis: Remains on hold History of COPD-emphysema HFimpEF Bilateral carotid stenosis CKD PLAN: Proceed with EGD in the a.m. Eliquis remains on hold If EGD is unremarkable, then could pursue a colonoscopy as an outpatient with Dr. Lindsay Continue PPI for now Monitor hemoglobin and transfuse as needed Consider iron therapy The benefits, alternatives, and risks of the procedure(s) including (but not exclusive to) bleeding, perforation, infection, hypoxia/hypotension/allergic reaction(s) due to sedatives need for surgery, and likelihood of missing a lesion, were explained to the patient/guardian/responsible accompanying adult who is agreeable (Comment: Please note this report has been produced using speech recognition software and may contain errors related to that system including errors in grammar, punctuation, and spelling, as well as words and phrases that may be inappropriate. If there are any questions or concerns please feel freeto contact the dictating provider for clarification.) Electronically signed by Stan Jama DO 11/09/2024 12:20 PM documented in this [facility]03-26-2025 Plan of care note* Care Plan - Una Churchill RN - 11/09/2024 8:30 PM EDT Problem: Knowledge Deficit Goal: Patient/family/caregiver demonstrates understanding of disease process, treatment plan, medications, and discharge instructions Outcome: Progressing Flowsheets (Taken 11/10/2024 0430) Patient/family/caregiver demonstrates understanding of disease process, treatment plan, medications, and discharge instructions: Provide teaching at level of understanding Problem: Hemodynamic Status Goal: Patient's vitals signs are stable Outcome: Progressing Flowsheets (Taken 11/08/20242028) Patient's vital signs are stable: Assess and monitor patient's heart rate, rhythm, respiratory rate, peripheral pulses, capillary refill, color, body temperature, intake and output, labs and physical activity tolerance Observe for signs of chest pain (note location, duration, severity, radiation and associated symptoms such as diaphoresis, nausea, indigestion) Monitor for signs and symptoms of heart failure (e.g. shortness of breath, edema of feet/ankles/legs, rapid irregular heart rate, coughing, wheezing, white/pink blood tinged sputum, sudden weight gain, chest pain) Plan activities to conserve energy [id number] Plan of care note* Care Plan - Quynh Ibarra RN - 11/09/2024 5:02 PM EDT Problem: Knowledge Deficit Goal: Patient/family/caregiver demonstrates understanding of disease process, treatment plan, medications, and discharge instructions Outcome: Progressing Problem: Hemodynamic Status Goal: Patient's vitals signs are stable Outcome: Progressing Problem: Excessive Fluid Volume Goal: Fluid and electrolyte balance are achieved/maintained Outcome: Progressing Problem: Problem Interventions Goal: Assess Nutritional Intake Outcome: [facility]ing [id number] Consult note* Stan Jama DO - 11/09/2024 12:20 PM EDTAssociated Order(s): IP CONSULT TO GI Images from the original note were not included. GASTROENTEROLOGY CONSULTATION REASON FOR CONSULT: The patient was seen in consultation at the request of Dr. Toledo re: Anemia,Hgb 6.6 HISTORY OF PRESENT ILLNESS: The patient is a 79 y.o. 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 Hemoglobin was7.1 from 10.0 in August this past year. Noted to have heme positive stools in the ED. From a GI standpoint is essentially asymptomatic. Denies any nausea, vomiting, hematemesis, heartburn, reflux naseem regular basis. She may have noted some dark stools over the past few weeks, but attributed this to red wine she had been drinking. She consumes approximately 1 to 2 glasses of wine nightly. S/p 1U PRBC. Repeat hemoglobin this a.m. 7.2. Remains on a PPI as an outpatient. No excessive NSAID use. No prior history of GI bleeding. Follows with Dr. Ernestina Bolanos. Last EGD and colonoscopy 02/16/2023 significant for GERD related changes in the esophagus and a small diminutive polyp in the sigmoid colon with small internal hemorrhoids. Currently denies any lightheadedness, dizziness, F/C/S. Eliquis has been placed on hold since yesterday morning. PAST MEDICAL HISTORY: Past Medical History: Diagnosis Date Arrhythmia Arthritis Asthma Breast cancer (HCC) 1993 Right Breast(Mastectomy) Breast cancer (HCC) 2010 Left Breast(Simple Mastectomy, SLND) Chronic kidney disease COPD (chronic obstructive pulmonary disease) (HCC) Coronary artery disease Diabetes (HCC) Emphysema of lung (HCC) Within last year GERD (gastroesophageal reflux disease) High blood pressure Lung nodule -2022 Occlusion and stenosis of unspecified carotid artery Pure hypercholesterolemia Syncope and collapse 08/29/2022 PAST SURGICAL HISTORY: Past Surgical History: Procedure Laterality Date BRONCHOSCOPY CARDIAC ELECTROPHYSIOLOGY PROCEDURE N/A 05/05/2024 Performed by Walt Leigh MD at [facility] Cardiac Cath/EP Lab CAROTID ENDARTERECTOMY Right 2008 CATARACT EXTRACTION Bilateral 2006 CHEST TUBE INSERTION Right 10/05/2023 ENDOBRONCHIAL ULTRASOUND EBUS (HISTORICAL) 10/05/2023 LUNG BIOPSY MASTECTOMY Left 2010 simple/reconstruction/gingivagrapht MASTECTOMY Right 1993 reconstruction (TRAM) TOTAL ABDOMINAL HYSTERECTOMY W/ BILATERAL SALPINGOOPHORECTOMY 1998 TUBAL LIGATION 1978 SOCIAL HISTORY: TOBACCO: Social History Tobacco Use Smoking Status Former Current packs/day: 0.00 Average packs/day: 1 pack/day for 30.0 years (30.0 ttl pk-yrs) Types: Cigarettes Start date: 08/17/1963 Quit date: 08/17/1993 Years since quittin.2 Smokeless Tobacco Never Tobacco Comments , 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[facility], 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, 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 ETOH: Alcohol Use: Not At Risk (11/08/2024) AUDIT-C Frequency of Alcohol Consumption: Never Average Number of Drinks: Patient does not drink Frequency of Binge Drinking: Never DRUGS: Social History Substance and Sexual Activity Drug Use No Comment: caffeine use: 1 cup of coffee a day FAMILY HISTORY: Family History Problem Relation Name Age of Onset Ovarian cancer Mother 66 Heart attack Father Lucita (Mother) 76 High Blood Pressure Father Lucita (Mother) Macular degeneration Father Lucita (Mother) Cancer Father Lucita (Mother) Ovarian cancer Mother's Sister 45 Other ([id number]) Son neuofibromatosis, BRCA1 positive Neurofibromatosis Son High Blood Pressure Son Cancer Son hairy cell leukemia Breast cancer Cousin 42 +brca Bladder Cancer Cousin 19 Hypertension Sister Angie Kidney disease Sister Angie Hypertension Sister Mireya Sister Kidney disease Sister Mireya Sister MEDICATIONS PRIOR TO ADMISSION: Current Outpatient Medications Medication Instructions albuterol (Ventolin HFA) 108 (90 Base) MCG/ACT inhaler 2 puffs, Inhalation, Every 4 hours PRN amLODIPine (NORVASC) 2.5 mg, Oral, Daily apixaban (ELIQUIS) 5 mg, Oral, 2 times daily carvedilol (COREG) 12.5 mg, Oral, 2 times daily with meals cholecalciferol (VITAMIN D-3) 4,000 Units, Daily Contour Next Test test strip USE ONE strip TO test TWICE DAILY Cyanocobalamin (B-12) 1000 MCG capsule 1 tablet, Daily ezetimibe (ZETIA) 10 mg, Oral, Daily Finerenone (Kerendia) 10 MG tablet 1 tablet, Daily fluticasone (Cutivate) 0.05 % cream Daily PRN furosemide (LASIX) 20 mg, Oral, Daily Icosapent Ethyl (VASCEPA) 2 g, Oral, 2 times daily with meals Jentadueto XR 2.5-1000 MG per 24 hr tablet take 2 tablets by mouth once daily lansoprazole (Prevacid) [address] capsule 1 capsule, Daily losartan (COZAAR) 100 mg, Oral, Daily Multiple Vitamins-Minerals (MULTIPLE VITAMINS/WOMENS PO) Daily predniSONE (Deltasone) 5 MG tablet Take with 10mg prednisone for 15mg daily rosuvastatin (Crestor) 10 MG tablet Daily sertraline (ZOLOFT) 25 mg, Oral, Daily tiotropium (Spiriva Respimat) 2.5 MCG/ACT inhaler 2 puffs, Inhalation, Daily CURRENT MEDICATIONS: Current Facility-Administered Medications: acetaminophen (Tylenol) tablet 650 mg, 650 mg, Oral, q6h PRN OR acetaminophen (Tylenol) suppository 650 mg, 650 mg, Rectal, q6h PRN, Beti Bernal APRN - [place] amLODIPine (Norvasc) tablet 2.5 mg, 2.5 mg, Oral, Daily, Beit Bernal APRN - WINDOWS TECHNICAL SPECIALIST, 2.5 mg at 11/09/24934 [Held by provider] apixaban (Eliquis) tablet 5 mg, 5 mg, Oral, BID, Beti Bernal APRN - [place] atovaquone (Mepron) suspension 1,500 mg, 1,500 mg, Oral, Daily, Beti Bernal APRN - [place], 1,500 mg at 11/09/24933 carvedilol (Coreg) tablet 12.5 mg, 12.5 mg, Oral, BID WC, Beti Bernal APRN - WINDOWS TECHNICAL SPECIALIST, 12.5 mg at 11/09/24934 ezetimibe (Zetia) tablet 10 mg, 10 mg, Oral, Daily, Beti Bernal APRN - [place], 10 mg at 11/09/24934 Finerenone tablet 1 tablet, 1 tablet, Oral, Daily, SUJATA Triana CNP metFORMIN XR (Glucophage-XR) 24 hr tablet 2,000 mg, 2,000 mg, Oral, Daily with breakfast, 2,000 mg at 11/09/24933 AND linaGLIPtin (Tradjenta) tablet 5 mg, 5 mg, Oral, Daily with breakfast, Beti Bernal APRN - [place], 5 mg at 11/09/24934 losartan (Cozaar) tablet 100 mg, 100 mg, Oral, Daily, Beti Bernal APRN - [place], 100 mg at 11/09/24934 ondansetron ODT (Zofran-ODT) disintegrating tablet 4 mg, 4 mg, Oral, q8h PRN OR ondansetron (Zofran) injection 4 mg, 4 mg, IntraVENous, q6h PRN, Beit Bernal APRN - [place] pantoprazole (ProtoNix) 40 mg in sodium chloride (PF) 0.9 % 10 mL injection, 40 mg, IntraVENous, qAM AC, Beti Bernal APRN - WINDOWS TECHNICAL SPECIALIST, 40 mg at 11/09/24 0500 polyethylene glycol (PEG) 3350 (Miralax) packet 17 g, 17 g, Oral, Daily PRN, Beti Bernal APRN - WINDOWS TECHNICAL SPECIALIST sodium chloride 0.9 % infusion, 250 mL/hr, IntraVENous, PRN, Ned Alvarado DO ALLERGIES: Allergies Allergen Reactions Isosulfan Blue Anaphylaxis Methylene Blue Sulfa Antibiotics Rash REVIEW OF SYMPTOMS: Ten-point review of symptoms was noted and reviewed in the chart. PHYSICAL EXAM VS:vBP (!) 158/43 Pulse 72 Temp 36.4 C (97.5 F) (Temporal) Resp 16 Ht 5' 7 (1.702 m) Wt 133 lb 13.1 oz (60.7 kg) SpO2 96% BMI 20.96 kg/m Body mass index is 20.96 kg/m . GENERAL: Pleasant and NAD. HEENT: Scleral anicteric. Oropharhynx clear with no erythema or exudate. CV: RRR, NL S1/S2, no murmurs. LUNGS: CTA b/l. No W/R/R. ABDOMEN: ,soft, non-tender and non-distended, + BS. No hepatosplenomegaly. No mass felt. No reboundor guarding. EXT: No C/C/E. MUSCULOSKELETALl: Strength 5/5 in all exts. NEURO: A&O x 3, No obvious focal deficits. PSYCH: Normal affect and speech. LABS AND IMAGING: Recent blood work and relevant radiologic and endoscopic studies were reviewed and discussed with the patient. Results from last 7 days Lab Units 11/09/24 0501 11/08/24200711/08/24 14111/07/24 1238 WBC Thousand/uL -- -- -- 10.6 WBC AUTO 10*3/uL -- -- 11.0* -- HEMOGLOBIN g/dL 7.2* 7.5* 6.6* 7.1* HEMATOCRIT % 22.6* 23.2* 21.3* 22.9* PLATELETS 10*3/uL -- -- 298 406* Results from last 7 days Lab Units 11/09/24 0501 11/08/24 14111/07/24 1238 SODIUM mmol/L 138 139 -- POTASSIUM mmol/L 3.6 3.9 -- CHLORIDE mmol/L 107 105 -- CO2 mmol/L 21* 18* 23 BUN mg/dL 19 23 24 CREATININE mg/dL 0.77 0.91 0.88 CALCIUM mg/dL 7.8* 8.5* 9.0 PROTEIN, TOTAL g/dL -- -- 6.0* PROTEIN TOTAL g/dL -- 5.5* -- BILIRUBIN TOTAL mg/dL -- 0.6 0.7 ALK PHOS U/L -- 49 55 ALT U/L -- 49* 66* AST U/L -- 32 102* GLUCOSE mg/dL 118* 152* 103* Results from last 7 days Lab Units 11/09/24 0501 INR 1.1 ASSESSMENT: Normocytic anemia FOBT +: Rule out GI blood loss exacerbated by Eliquis. Consider upper GI source given reported dark stools over the past few weeks. Rule out esophagitis, gastritis, PUD, AVMs. No other obvious source of bleeding on EGD/colonoscopy within the past 2 years. However, if no evidence of an upper GI source then could consider colonic source versus small bowel bleeding. Other possibilities include anemia secondary to CKD, ACD GERD Personal history of colon polyps PAF on Eliquis: Remains on hold History of COPD-emphysema HFimpEF Bilateral carotid stenosis CKD PLAN: Proceed with EGD in the a.m. Eliquis remains on hold If EGD is unremarkable, then could pursue a colonoscopy as an outpatient with Dr. Lindsay Continue PPI for now Monitor hemoglobin and transfuse as needed Consider iron therapy The benefits, alternatives, and risks of the procedure(s) including (but not exclusive to) bleeding, perforation, infection, hypoxia/hypotension/allergic reaction(s) due to sedatives need for surgery, and likelihood of missing a lesion, were explained to the patient/guardian/responsible accompanying adult who is agreeable (Comment: Please note this report has been produced using speech recognition software and may contain errors related to that system including errors in grammar, punctuation, and spelling, as well as words and phrases that may be inappropriate. If there are any questions or concerns please feel freeto contact the dictating provider for clarification.) Electronically signed by Stan Jama DO 11/09/2024 12:20 PM [facility] Phone: [phone] Note* Care Coordination - Karyn Angeles RN - 11/09/2024 10:33 AM EDT Rounds this am DCP: home at [place] with spouse Symptomatic Anemia Hgb 6.6 on Eliquis Positive fecal occult blood test. I U PRBC given 6.6>7.5>7.2 [facility] [id number] Note* Care Coordination - Karyn Angeles RN - 11/09/2024 10:33 AM EDT Rounds this am DCP: home at [place] with spouse Symptomatic Anemia Hgb 6.6 on Eliquis Positive fecal occult blood test. I U PRBC given 6.6>7.5>7.2 [facility] [id number] Plan of care note* Care Plan - Una Churchill RN - 11/08/2024 8:29 PM EDT Problem: Knowledge Deficit Goal: Patient/family/caregiver demonstrates understanding of disease process, treatment plan, medications, and discharge instructions Outcome: Progressing Flowsheets (Taken 11/08/20242028) Patient/family/caregiver demonstrates understanding of disease process, treatment plan, medications, and discharge instructions: Provide teaching at level of understanding Problem: Hemodynamic Status Goal: Patient's vitals signs are stable Outcome: Progressing Flowsheets (Taken 11/08/20242028) Patient's vital signs are stable: Assess and monitor patient's heart rate, rhythm, respiratory rate, peripheral pulses, capillary refill, color, body temperature, intake and output, labs and physical activity tolerance Observe for signs of chest pain (note location, duration, severity, radiation and associated symptoms such as diaphoresis, nausea, indigestion) Monitor for signs and symptoms of heart failure (e.g. shortness of breath, edema of feet/ankles/legs, rapid irregular heart rate, coughing, wheezing, white/pink blood tinged sputum, sudden weight gain, chest pain) Plan activities to conserve energy Problem: Excessive Fluid Volume Goal: Fluid and electrolyte balance are achieved/maintained Outcome: Progressing [id number] History and physical note* Beti Michelle Bernal, DEWATERER OPERATOR - WINDOWS TECHNICAL SPECIALIST - 11/08/2024 6:11 PM EDT Attending History and Physical Admit Date: 11/08/2024 PCP: CELIA AL DO CHIEF COMPLAINT: abnormal labs Reason for Admission: low hemoglobin History Obtained From: patient HISTORY OF PRESENT ILLNESS: Rolando is a 79 y.o. female with past medical history of PAF on Eliquis, bilateral carotid artery stenosis, asthma, breast cancer in 1993 with right mastectomy, CKD, COPD/emphysema, CAD, DM, GERD, Hypertension, lung nodules, syncope in 2022 and hypercholesteremia, chest tube September of 2023, and bronchoscopy in 2023 was sent in by her cementer oil well Dr Jerome following her lab work that was showinglow hemoglobin of 7.1 which was 10 in August of this year. Patient is on Eliquis, having some fatigue and lightheadedness, denies black or bloody stools, denies chest pain, winded easily, no numbness tingling in lower extremities, no cough congestion or urinary symptoms. Will admit for further evaluation and management. Initial ED workup: Hgb is 6.6, CO2 18, anion gap is 16, glucose is 152, Ca+ 8.5, troponin x 2 negative, BNP 3683, triglycerides are 167, WBC 11.0, type and screen, received 1 unit PRBC, FOBT positive, CT head negative for any acute findings, chest xray unremarkable, EKG SR with PAC Patient seen and examined in ED #18, patient endorses going to Dr Jerome's office and having bloodwork, found low hemoglobin, admits to shortness of breath and fatigue, denies chest pain, fever/chills, N/V/D, abdominal pain, denies bloody or dark tarry stools, denies urinary symptoms or hematuria, denies coughing up blood, and denies calf pain tenderness or swelling. Past Medical History: Past Medical History: Diagnosis Date Arrhythmia Arthritis Asthma Breast cancer (HCC) 1993 Right Breast(Mastectomy) Breast cancer (HCC) 2010 Left Breast(Simple Mastectomy, SLND) Chronic kidney disease COPD (chronic obstructive pulmonary disease) (HCC) Coronary artery disease Diabetes (HCC) Emphysema of lung (HCC) Within last year GERD (gastroesophageal reflux disease) High blood pressure Lung nodule -2022 Occlusion and stenosis of unspecified carotid artery Pure hypercholesterolemia Syncope and collapse 08/29/2022 Past Surgical History: Past Surgical History: Procedure Laterality Date BRONCHOSCOPY CARDIAC ELECTROPHYSIOLOGY PROCEDURE N/A 05/05/2024 Performed by Walt Leigh MD at [facility] Cardiac Cath/EP Lab CAROTID ENDARTERECTOMY Right 2008 CATARACT EXTRACTION Bilateral 2006 CHEST TUBE INSERTION Right 10/05/2023 ENDOBRONCHIAL ULTRASOUND EBUS (HISTORICAL) 10/05/2023 LUNG BIOPSY MASTECTOMY Left 2010 simple/reconstruction/gingivagrapht MASTECTOMY Right 1993 reconstruction (TRAM) TOTAL ABDOMINAL HYSTERECTOMY W/ BILATERAL SALPINGOOPHORECTOMY 1998 TUBAL LIGATION 1978 Social History: Social History Socioeconomic History Marital status: Spouse name: Not on file Number of children: Not on file Years of education: Not on file Highest education level: Not on file Occupational History Not on file Tobacco Use Smoking status: Former Current packs/day: 0.00 Average packs/day: 1 pack/day for 30.0 years (30.0 ttl pk-yrs) Types: Cigarettes Start date: 08/17/1963 Quit date: 08/17/1993 Years since quittin.2 Smokeless tobacco: Never 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: , 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[facility], 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, 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 Vaping Use Vaping status: Never Used Substance and Sexual Activity Alcohol use: Yes Alcohol/week: 2.0 - 16.0 standard drinks of alcohol Types: 2 Glasses of wine per week Comment: occ Drug use: No Comment: caffeine use: 1 cup of coffee a day Sexual activity: Not Currently Partners: Male control/protection: Other Other Topics Concern Not on file Social History Narrative Not on file Social Drivers of Health Financial Resource Strain: Not on file Food Insecurity: No Food Insecurity (01/19/2024) Hunger Vital Sign Worried About Running Out of Food in the Last Year: Never true Ran Out of Food in the Last Year: Never true Transportation Needs: No Transportation Needs (01/19/2024) PRAPARE - Transportation Lack of Transportation (Medical): No Lack of Transportation (Non-Medical): No Physical Activity: Not on file Stress: Not on file Social Connections: Not on file Intimate Partner Violence: Not At Risk (08/27/2024) Humiliation, Afraid, Rape, and Kick questionnaire Fear of Current or Ex-Partner: No Emotionally Abused: No Physically Abused: No Sexually Abused: No Housing Stability: Low Risk (01/19/2024) Housing Stability Vital Sign Unable to Pay for Housing in the Last Year: No Number of Places Lived in the Last Year: 1 Unstable Housing in the Last Year: No Family History: Family History Problem Relation Name Age of Onset Ovarian cancer Mother 66 Heart attack Father Lucita (Mother) 76 High Blood Pressure Father Lucita (Mother) Macular degeneration Father Lucita (Mother) Cancer Father Lucita (Mother) Ovarian cancer Mother's Sister 45 Other ([id number]) Son neuofibromatosis, BRCA1 positive Neurofibromatosis Son High Blood Pressure Son Cancer Son hairy cell leukemia Breast cancer Cousin 42 +brca Bladder Cancer Cousin 19 Hypertension Sister Angie Kidney disease Sister Angie Hypertension Sister Mireya Sister Kidney disease Sister Mireya Sister Medications Prior to Admission: No current facility-administered medications on file prior to encounter. Current Outpatient Medications on File Prior to Encounter Medication Sig Dispense Refill albuterol (Ventolin HFA) 108 (90 Base) MCG/ACT inhaler Inhale 2 puffs every 4 hours as needed for wheezing or shortness of breath. 8 g 11 amLODIPine (Norvasc) 2.5 MG tablet Take 1 tablet (2.5 mg) by mouth daily. 30 tablet 1 apixaban (Eliquis) 5 MG tablet Take 1 tablet (5 mg) by mouth 2 times daily. 180 tablet 1 atovaquone (Mepron) 750 MG/5ML suspension Take 10 mL (1,500 mg) by mouth daily. 600 mL 0 carvedilol (Coreg) 12.5 MG tablet Take 1 tablet (12.5 mg) by mouth 2 times daily (with meals). 180 tablet 3 cholecalciferol (Vitamin D-3) 50 MCG (2000 UT) tablet Take 4,000 Units by mouth daily. Cyanocobalamin (B-12) 1000 MCG capsule Take 1 tablet by mouth daily. ezetimibe (Zetia) 10 MG tablet Take 1 tablet (10 mg) by mouth in the morning. 90 tablet 2 Finerenone (Kerendia) 10 MG tablet Take 1 tablet by mouth daily. furosemide (Lasix) 20 MG tablet Take 1 tablet (20 mg) by mouth daily. Do not start before August 30, 2024. (Patient taking differently: Take 20 mg by mouth every other day.) 30 tablet 0 Icosapent Ethyl (Vascepa) 1 g capsule Take 2 capsules (2 g) by mouth 2 times daily (with meals). 360 capsule 3 Jentadueto XR 2.5-1000 MG per 24 hr tablet take 2 tablets by mouth once daily lansoprazole (Prevacid) [address] capsule 1 capsule in the morning. losartan (Cozaar) 100 MG tablet Take 1 tablet (100 mg) by mouth daily. 90 tablet 1 Multiple Vitamins-Minerals (MULTIPLE VITAMINS/WOMENS PO) Take by mouth daily. predniSONE (Deltasone) 5 MG tablet Take with 10mg prednisone for 15mg daily 28 tablet 0 rosuvastatin (Crestor) 10 MG tablet daily. sertraline (Zoloft) 25 MG tablet Take 1 tablet (25 mg) by mouth daily. 30 tablet 11 tiotropium (Spiriva Respimat) 2.5 MCG/ACT inhaler Inhale 2 puffs daily. 1 each 11 Contour Next Test test strip USE ONE strip TO test TWICE DAILY fluticasone (Cutivate) 0.05 % cream Apply topically Daily as needed (itching). [DISCONTINUED] apixaban (Eliquis) 5 MG tablet Take 1 tablet (5 mg) by mouth 2 times daily. 180 tablet 1 [DISCONTINUED] Vascepa 1 g capsule TAKE 2 CAPSULES BY MOUTH 2 TIMES DAILY 360 capsule 3 Allergies: Allergies Allergen Reactions Isosulfan Blue Anaphylaxis Methylene Blue Sulfa Antibiotics Rash REVIEW OF SYSTEMS: Constitutional: Negative for fever, chills, activity change and unexpected weight change. HEENT: Negative for congestion, postnasal drip and sneezing. Eyes: Negative for itching and visual disturbance. Respiratory: Negative for apnea, cough, choking, chest tightness, shortness of breath, wheezing andstridor. Cardiovascular: Negative for chest pain. Gastrointestinal: Negative for nausea, vomiting, abdominal pain, diarrhea and blood in stool. Genitourinary: Negative for dysuria, frequency and flank pain. Musculoskeletal: Negative for myalgias and joint swelling. Skin: Negative for rash. Neurological: Negative for dizziness, tremors, seizures, syncope, facial asymmetry, speech difficulty, weakness, numbness and headaches. Hematological: Negative for adenopathy. Psychiatric/Behavioral: Negative for suicidal ideas, behavioral problems, self- injury and dysphoricmood. Vitals: BP (!) 159/49 Pulse 76 Temp 36.7 C (98.1 F) Resp 14 Ht 1.702 m (5' 7) Wt 61.2 kg (135 lb) SpO2 100% BMI 21.14 kg/m BMI Classification: Normal Weight (BMI 18.5-24.9) Pulse Ox: SpO2 Av.8 % Min: 99 % Max: 100 % Supplemental O2: PHYSICAL EXAM: Physical Exam Vitals and nursing note reviewed. Constitutional: Appearance: Normal appearance. Eyes: Pupils: Pupils are equal, round, and reactive to light. Cardiovascular: Rate and Rhythm: Normal rate and regular rhythm. Pulmonary: Effort: Pulmonary effort is normal. Breath sounds: Normal breath sounds. Abdominal: General: Bowel sounds are normal. Palpations: Abdomen is soft. Musculoskeletal: General: Normal range of motion. Skin: General: Skin is warm and dry. Neurological: General: No focal deficit present. Mental Status: She is alert and oriented to person, place, and time. Psychiatric: Mood and Affect: Mood normal. Thought Content: Thought content normal. DATA: CBC: Recent Labs 11/07/24 1238 11/08/24 1419 WBC 10.6 11.0* RBC 2.53* 2.39* HGB 7.1* 6.6* HCT 22.9* 21.3* MCV 90.5 89.1 RDW 15.4* 16.0* PLT 406* 298 BMP: Recent Labs 11/07/24 1238 11/08/24 1419 NA -- 139 K -- 3.9 CL -- 105 CO2 23 18* BUN 24 23 CREATININE 0.88 0.91 GLUCOSE 103* 152* CALCIUM 9.0 8.5* ANIONGAP -- 16* LIVER PROFILE: Recent Labs 11/07/24 1238 11/08/24 1419 AST 102* 32 ALT 66* 49* BILITOT 0.7 0.6 ALKPHOS 55 49 PROT 6.0* 5.5* PT/INR: No results for input(s): PROTIME, INR in the last 72 hours. CARDIAC ENZYMES: No results for input(s): TROPONINI in the last 72 hours. Procalcitonin: No results found for: PROCAL Urine Culture: No results found for this or any previous visit. COVID-19 PCR: No results for input(s): COVID19 in the last 72 hours. I reviewed: [x] laboratory results [x] radiographic results At the time of today's encounter. Pt was advised of the results. Data: (CAT1) Reviewed 3 or more notes from different specialty or health system (each=1). (CAT1) Reviewed 3 or more labs/studies ordered by another provider not previously counted (each=1, panels count as 1). (CAT1) Ordered 3 or more new labs and/or studies (each=1, panels count as 1). (CAT2) EKG reviewed & showed SR PACs as interpreted by me. (CAT2) CXR reviewed & showed no acute findings as interpreted by me. (CAT2) MRI of CT of head unremarkable reviewed & showed as interpreted by me. (LOW: 2x CAT1 or independent historian MOD: 3x CAT1 or 1x CAT3 EXTENSIVE: 3x CAT1 and 1x CAT3) Assessment Discussed management with the ED provider and agree with hospitalization. 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 CAD Bilateral Carotid stenosis PAF on Eliquis Hypertension Hypercholesteremia Type 2 DM CKD GERD Plan As a result of the above findings & factors, the following mgmt was pursued: - Hgb 7.1 in cardiology office, today 6.6, Aug 2024 it was 10 - Transfuse PRBC-received 1 unit in ED after Type and Screen completed - H&H Q 6 hrs - FOBT positive - GI consulted-appreciate recommendations - Hold Eliquis, in SR currently - on RA, O2 as needed - VSS - CT imaging negative for any acute findings - fatigue should improve after Hgb improves - restarted other home medications for other chronic conditions - am labs, replace lytes prn - PT/OT/CM/SW - delirium precautions: limit nighttime disturbances - DVT prophylaxis: encourage ambulation Complexity: Acute illness or injury posing a threat to life or body function (HIGH). Risk: Prescription drug/IVF/colloid was initiated, discontinued, adjusted; or reviewed with decision to maintain current orders (MOD). Advance Directive: Full Code Anticipated Discharge - Date - TBD - Location - Home - Pending the following - improvement Extended Emergency Contact Information Primary Emergency Contact: Jin Peters Address: [facility] [place] [address] [facility] Mobile Relation: Spouse Secondary Emergency Contact: Ene Negrete Address: [address], [place] [id number] [place] [address] Mobile Relation: Daughter [employer] Rolando Peters : 1945 Primary Care Physician: CELIA AL DO The patient and/or family/surrogate voluntarily agreed to participate in ACP services. Patient s cognitive capacity: A&Ox 3 Code Status: [X_] [FULL CODE - Continue all advanced life support: CPR,intubation,invasive procedures] [_] [DNR-CCA - DO NOT do CPR, intubation] [_] [DNR-CHILD PROTECTION SPECIALIST - Comfort care only] [_] DNR form [was/was not] signed Summary of discussion: The patient health care POA/ surrogate is the following: see above. [Condition that instigated the ACP on this DOS, relevant PMH, functional status, goals of care, andwhom this was discussed with including names and relationship to the patient, and any relevant advance care documentation discussion] I answered all the patient/family questions that I could within the range and scope of the current medical situation. We discussed the medical conditions, risks, benefits, outcomes, and goals of careat this time for the patient's medical issues at hand in the face of the patient's chronic issues and current presentation. Total time spent: 5 minutes were spent discussing the patient's resuscitation status, advance care planning, and end of life care, with patient and/or family/surrogate. Beti Bernal APRN - [facility] Division of Hospitalist Medicine [facility] Cosigned by Nel Toledo MD at 11/08/2024 8:47 PM EDT Associated attestation - Nel Toledo MD - 11/08/2024 8:47 PM EDT I have evaluated the patient and reviewed the case with the STAFFING ACCOUNT MANAGER. I agree with the current plan of care including the workup, evaluation, management, and diagnosis. Care plan has been discussed. Pleasesee my progress notes with in the next 24 hours for my current plan and work up Nel Toledo MD Division of Hospitalist Medicine [facility] 8:46 PM 11/08/24 [facility] [employer] Phone: [phone] [facility]03-25-2025 History and physical note* SUJATA Triana CNP - 11/08/2024 6:11 PM EDT Attending History and Physical Admit Date: 11/08/2024 PCP: CELIA AL DO CHIEF COMPLAINT: abnormal labs Reason for Admission: low hemoglobin History Obtained From: patient HISTORY OF PRESENT ILLNESS: Rolando is a 79 y.o. female with past medical history of PAF on Eliquis, bilateral carotid artery stenosis, asthma, breast cancer in 1993 with right mastectomy, CKD, COPD/emphysema, CAD, DM, GERD, Hypertension, lung nodules, syncope in 2022 and hypercholesteremia, chest tube September of 2023, and bronchoscopy in 2023 was sent in by her cementer oil well Dr Jerome following her lab work that was showinglow hemoglobin of 7.1 which was 10 in August of this year. Patient is on Eliquis, having some fatigue and lightheadedness, denies black or bloody stools, denies chest pain, winded easily, no numbness tingling in lower extremities, no cough congestion or urinary symptoms. Will admit for further evaluation and management. Initial ED workup: Hgb is 6.6, CO2 18, anion gap is 16, glucose is 152, Ca+ 8.5, troponin x 2 negative, BNP 3683, triglycerides are 167, WBC 11.0, type and screen, received 1 unit PRBC, FOBT positive, CT head negative for any acute findings, chest xray unremarkable, EKG SR with PAC Patient seen and examined in ED #18, patient endorses going to Dr Jerome's office and having bloodwork, found low hemoglobin, admits to shortness of breath and fatigue, denies chest pain, fever/chills, N/V/D, abdominal pain, denies bloody or dark tarry stools, denies urinary symptoms or hematuria, denies coughing up blood, and denies calf pain tenderness or swelling. Past Medical History: Past Medical History: Diagnosis Date Arrhythmia Arthritis Asthma Breast cancer (HCC) 1993 Right Breast(Mastectomy) Breast cancer (HCC) 2010 Left Breast(Simple Mastectomy, SLND) Chronic kidney disease COPD (chronic obstructive pulmonary disease) (HCC) Coronary artery disease Diabetes (HCC) Emphysema of lung (HCC) Within last year GERD (gastroesophageal reflux disease) High blood pressure Lung nodule -2022 Occlusion and stenosis of unspecified carotid artery Pure hypercholesterolemia Syncope and collapse 08/29/2022 Past Surgical History: Past Surgical History: Procedure Laterality Date BRONCHOSCOPY CARDIAC ELECTROPHYSIOLOGY PROCEDURE N/A 05/05/2024 Performed by Walt Leigh MD at [facility] Cardiac Cath/EP Lab CAROTID ENDARTERECTOMY Right 2008 CATARACT EXTRACTION Bilateral 2006 CHEST TUBE INSERTION Right 10/05/2023 ENDOBRONCHIAL ULTRASOUND EBUS (HISTORICAL) 10/05/2023 LUNG BIOPSY MASTECTOMY Left 2010 simple/reconstruction/gingivagrapht MASTECTOMY Right 1993 reconstruction (TRAM) TOTAL ABDOMINAL HYSTERECTOMY W/ BILATERAL SALPINGOOPHORECTOMY 1998 TUBAL LIGATION 1978 Social History: Social History Socioeconomic History Marital status: Spouse name: Not on file Number of children: Not on file Years of education: Not on file Highest education level: Not on file Occupational History Not on file Tobacco Use Smoking status: Former Current packs/day: 0.00 Average packs/day: 1 pack/day for 30.0 years (30.0 ttl pk-yrs) Types: Cigarettes Start date: 08/17/1963 Quit date: 08/17/1993 Years since quittin.2 Smokeless tobacco: Never 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: , 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[facility], 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, 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 Vaping Use Vaping status: Never Used Substance and Sexual Activity Alcohol use: Yes Alcohol/week: 2.0 - 16.0 standard drinks of alcohol Types: 2 Glasses of wine per week Comment: occ Drug use: No Comment: caffeine use: 1 cup of coffee a day Sexual activity: Not Currently Partners: Male control/protection: Other Other Topics Concern Not on file Social History Narrative Not on file Social Drivers of Health Financial Resource Strain: Not on file Food Insecurity: No Food Insecurity (01/19/2024) Hunger Vital Sign Worried About Running Out of Food in the Last Year: Never true Ran Out of Food in the Last Year: Never true Transportation Needs: No Transportation Needs (01/19/2024) PRAPARE - Transportation Lack of Transportation (Medical): No Lack of Transportation (Non-Medical): No Physical Activity: Not on file Stress: Not on file Social Connections: Not on file Intimate Partner Violence: Not At Risk (08/27/2024) Humiliation, Afraid, Rape, and Kick questionnaire Fear of Current or Ex-Partner: No Emotionally Abused: No Physically Abused: No Sexually Abused: No Housing Stability: Low Risk (01/19/2024) Housing Stability Vital Sign Unable to Pay for Housing in the Last Year: No Number of Places Lived in the Last Year: 1 Unstable Housing in the Last Year: No Family History: Family History Problem Relation Name Age of Onset Ovarian cancer Mother 66 Heart attack Father Lucita (Mother) 76 High Blood Pressure Father Lucita (Mother) Macular degeneration Father Lucita (Mother) Cancer Father Lucita (Mother) Ovarian cancer Mother's Sister 45 Other ([id number]) Son neuofibromatosis, BRCA1 positive Neurofibromatosis Son High Blood Pressure Son Cancer Son hairy cell leukemia Breast cancer Cousin 42 +brca Bladder Cancer Cousin 19 Hypertension Sister Angie Kidney disease Sister Angie Hypertension Sister Mireya Sister Kidney disease Sister Mireya Sister Medications Prior to Admission: No current facility-administered medications on file prior to encounter. Current Outpatient Medications on File Prior to Encounter Medication Sig Dispense Refill albuterol (Ventolin HFA) 108 (90 Base) MCG/ACT inhaler Inhale 2 puffs every 4 hours as needed for wheezing or shortness of breath. 8 g 11 amLODIPine (Norvasc) 2.5 MG tablet Take 1 tablet (2.5 mg) by mouth daily. 30 tablet 1 apixaban (Eliquis) 5 MG tablet Take 1 tablet (5 mg) by mouth 2 times daily. 180 tablet 1 atovaquone (Mepron) 750 MG/5ML suspension Take 10 mL (1,500 mg) by mouth daily. 600 mL 0 carvedilol (Coreg) 12.5 MG tablet Take 1 tablet (12.5 mg) by mouth 2 times daily (with meals). 180 tablet 3 cholecalciferol (Vitamin D-3) 50 MCG (2000 UT) tablet Take 4,000 Units by mouth daily. Cyanocobalamin (B-12) 1000 MCG capsule Take 1 tablet by mouth daily. ezetimibe (Zetia) 10 MG tablet Take 1 tablet (10 mg) by mouth in the morning. 90 tablet 2 Finerenone (Kerendia) 10 MG tablet Take 1 tablet by mouth daily. furosemide (Lasix) 20 MG tablet Take 1 tablet (20 mg) by mouth daily. Do not start before August 30, 2024. (Patient taking differently: Take 20 mg by mouth every other day.) 30 tablet 0 Icosapent Ethyl (Vascepa) 1 g capsule Take 2 capsules (2 g) by mouth 2 times daily (with meals). 360 capsule 3 Jentadueto XR 2.5-1000 MG per 24 hr tablet take 2 tablets by mouth once daily lansoprazole (Prevacid) [address] capsule 1 capsule in the morning. losartan (Cozaar) 100 MG tablet Take 1 tablet (100 mg) by mouth daily. 90 tablet 1 Multiple Vitamins-Minerals (MULTIPLE VITAMINS/WOMENS PO) Take by mouth daily. predniSONE (Deltasone) 5 MG tablet Take with 10mg prednisone for 15mg daily 28 tablet 0 rosuvastatin (Crestor) 10 MG tablet daily. sertraline (Zoloft) 25 MG tablet Take 1 tablet (25 mg) by mouth daily. 30 tablet 11 tiotropium (Spiriva Respimat) 2.5 MCG/ACT inhaler Inhale 2 puffs daily. 1 each 11 Contour Next Test test strip USE ONE strip TO test TWICE DAILY fluticasone (Cutivate) 0.05 % cream Apply topically Daily as needed (itching). [DISCONTINUED] apixaban (Eliquis) 5 MG tablet Take 1 tablet (5 mg) by mouth 2 times daily. 180 tablet 1 [DISCONTINUED] Vascepa 1 g capsule TAKE 2 CAPSULES BY MOUTH 2 TIMES DAILY 360 capsule 3 Allergies: Allergies Allergen Reactions Isosulfan Blue Anaphylaxis Methylene Blue Sulfa Antibiotics Rash REVIEW OF SYSTEMS: Constitutional: Negative for fever, chills, activity change and unexpected weight change. HEENT: Negative for congestion, postnasal drip and sneezing. Eyes: Negative for itching and visual disturbance. Respiratory: Negative for apnea, cough, choking, chest tightness, shortness of breath, wheezing andstridor. Cardiovascular: Negative for chest pain. Gastrointestinal: Negative for nausea, vomiting, abdominal pain, diarrhea and blood in stool. Genitourinary: Negative for dysuria, frequency and flank pain. Musculoskeletal: Negative for myalgias and joint swelling. Skin: Negative for rash. Neurological: Negative for dizziness, tremors, seizures, syncope, facial asymmetry, speech difficulty, weakness, numbness and headaches. Hematological: Negative for adenopathy. Psychiatric/Behavioral: Negative for suicidal ideas, behavioral problems, self- injury and dysphoricmood. Vitals: BP (!) 159/49 Pulse 76 Temp 36.7 C (98.1 F) Resp 14 Ht 1.702 m (5' 7) Wt 61.2 kg (135 lb) SpO2 100% BMI 21.14 kg/m BMI Classification: Normal Weight (BMI 18.5-24.9) Pulse Ox: SpO2 Av.8 % Min: 99 % Max: 100 % Supplemental O2: PHYSICAL EXAM: Physical Exam Vitals and nursing note reviewed. Constitutional: Appearance: Normal appearance. Eyes: Pupils: Pupils are equal, round, and reactive to light. Cardiovascular: Rate and Rhythm: Normal rate and regular rhythm. Pulmonary: Effort: Pulmonary effort is normal. Breath sounds: Normal breath sounds. Abdominal: General: Bowel sounds are normal. Palpations: Abdomen is soft. Musculoskeletal: General: Normal range of motion. Skin: General: Skin is warm and dry. Neurological: General: No focal deficit present. Mental Status: She is alert and oriented to person, place, and time. Psychiatric: Mood and Affect: Mood normal. Thought Content: Thought content normal. DATA: CBC: Recent Labs 11/07/24 1238 11/08/24 1419 WBC 10.6 11.0* RBC 2.53* 2.39* HGB 7.1* 6.6* HCT 22.9* 21.3* MCV 90.5 89.1 RDW 15.4* 16.0* PLT 406* 298 BMP: Recent Labs 11/07/24 1238 11/08/24 1419 NA -- 139 K -- 3.9 CL -- 105 CO2 23 18* BUN 24 23 CREATININE 0.88 0.91 GLUCOSE 103* 152* CALCIUM 9.0 8.5* ANIONGAP -- 16* LIVER PROFILE: Recent Labs 11/07/24 1238 11/08/24 1419 AST 102* 32 ALT 66* 49* BILITOT 0.7 0.6 ALKPHOS 55 49 PROT 6.0* 5.5* PT/INR: No results for input(s): PROTIME, INR in the last 72 hours. CARDIAC ENZYMES: No results for input(s): TROPONINI in the last 72 hours. Procalcitonin: No results found for: PROCAL Urine Culture: No results found for this or any previous visit. COVID-19 PCR: No results for input(s): COVID19 in the last 72 hours. I reviewed: [x] laboratory results [x] radiographic results At the time of today's encounter. Pt was advised of the results. Data: (CAT1) Reviewed 3 or more notes from different specialty or health system (each=1). (CAT1) Reviewed 3 or more labs/studies ordered by another provider not previously counted (each=1, panels count as 1). (CAT1) Ordered 3 or more new labs and/or studies (each=1, panels count as 1). (CAT2) EKG reviewed & showed SR PACs as interpreted by me. (CAT2) CXR reviewed & showed no acute findings as interpreted by me. (CAT2) MRI of CT of head unremarkable reviewed & showed as interpreted by me. (LOW: 2x CAT1 or independent historian MOD: 3x CAT1 or 1x CAT3 EXTENSIVE: 3x CAT1 and 1x CAT3) Assessment Discussed management with the ED provider and agree with hospitalization. 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 CAD Bilateral Carotid stenosis PAF on Eliquis Hypertension Hypercholesteremia Type 2 DM CKD GERD Plan As a result of the above findings & factors, the following mgmt was pursued: - Hgb 7.1 in cardiology office, today 6.6, Aug 2024 it was 10 - Transfuse PRBC-received 1 unit in ED after Type and Screen completed - H&H Q 6 hrs - FOBT positive - GI consulted-appreciate recommendations - Hold Eliquis, in SR currently - on RA, O2 as needed - VSS - CT imaging negative for any acute findings - fatigue should improve after Hgb improves - restarted other home medications for other chronic conditions - am labs, replace lytes prn - PT/OT/CM/SW - delirium precautions: limit nighttime disturbances - DVT prophylaxis: encourage ambulation Complexity: Acute illness or injury posing a threat to life or body function (HIGH). Risk: Prescription drug/IVF/colloid was initiated, discontinued, adjusted; or reviewed with decision to maintain current orders (MOD). Advance Directive: Full Code Anticipated Discharge - Date - TBD - Location - Home - Pending the following - improvement Extended Emergency Contact Information Primary Emergency Contact: Jin Peters Address: [address] [place] [address] Mobile Relation: Spouse Secondary Emergency Contact: PenelopeOnofreEne Address: [address] Mobile Relation: Daughter [employer] Rolando Peters : 1945 Primary Care Physician: CELIA AL DO The patient and/or family/surrogate voluntarily agreed to participate in ACP services. Patient s cognitive capacity: A&Ox 3 Code Status: [X_] [FULL CODE - Continue all advanced life support: CPR,intubation,invasive procedures] [_] [DNR-CCA - DO NOT do CPR, intubation] [_] [DNR-CHILD PROTECTION SPECIALIST - Comfort care only] [_] DNR form [was/was not] signed Summary of discussion: The patient health care POA/ surrogate is the following: see above. [Condition that instigated the ACP on this DOS, relevant PMH, functional status, goals of care, andwhom this was discussed with including names and relationship to the patient, and any relevant advance care documentation discussion] I answered all the patient/family questions that I could within the range and scope of the current medical situation. We discussed the medical conditions, risks, benefits, outcomes, and goals of careat this time for the patient's medical issues at hand in the face of the patient's chronic issues and current presentation. Total time spent: 5 minutes were spent discussing the patient's resuscitation status, advance care planning, and end of life care, with patient and/or family/surrogate. SUJATA Lucero CNP Division of Hospitalist [facility] Cosigned by Nel Toledo MD at 11/08/2024 8:47 PM EDT Associated attestation - Nel Toledo MD - 11/08/2024 8:47 PM EDT I have evaluated the patient and reviewed the case with the STAFFING ACCOUNT MANAGER. I agree with the current plan of care including the workup, evaluation, management, and diagnosis. Care plan has been discussed. Pleasesee my progress notes with in the next 24 hours for my current plan and work up Nel Toledo MD Division of Hospitalist [facility] 8:46 PM 11/08/24 documented in this [facility]03-25-2025 Emergency department Note* Ned Alvarado DO - 11/08/2024 1:28 PM EDT EMERGENCY DEPARTMENT ENCOUNTER Pt Name: Rloando Peters Birthdate 1945 Date of evaluation: 11/08/2024 ED Provider: Ned Alvarado DO CHIEF COMPLAINT Chief Complaint Patient presents with Abnormal Lab Pt comes in due to having her pcp call her and send her in after having blood work drawn up and wastold her hemoglobin has dropped to 7 now from 10. Pt is alert and oriented vitals taken In triage HISTORY OF PRESENT ILLNESS (Location/Symptom, Timing/Onset, Context/Setting, Quality, Duration, Modifying Factors, Severity) Note limiting factors. I wore appropriate PPE for the entirety of this encounter. HPI Rolando Peters is a 79 y.o. who presents to the emergency department for evaluation of anemia. She had lab work drawn through cardiology yesterday found to have a hemoglobin of 7.1 at the beginning of October it was 8.3 and in August was 10. She is on Eliquis. She states over the last few days she hasbeen having some fatigue and lightheadedness. She denies any black or bloody stools. She denies anychest pain. She states she does feel winded easily. No numbness or weakness in extremities. No cough or congestion. No urinary symptoms. Nursing Notes were reviewed. Limitations to history: None Outside historians: None REVIEW OF SYSTEMS Review of Systems Constitutional: Positive for fatigue. Negative for chills and fever. HENT: Negative for ear pain and sore throat. Eyes: Negative for pain and visual disturbance. Respiratory: Negative for cough and shortness of breath. Cardiovascular: Negative for chest pain and palpitations. Gastrointestinal: Negative for abdominal pain and vomiting. Genitourinary: Negative for dysuria and hematuria. Musculoskeletal: Negative for arthralgias and back pain. Skin: Negative for color change and rash. Neurological: Positive for light-headedness. Negative for seizures and syncope. All other systems reviewed and are negative. Pertinent positives and negatives as per HPI PAST MEDICAL HISTORY Past Medical History: Diagnosis Date Arrhythmia Arthritis Asthma Breast cancer (HCC) 1993 Right Breast(Mastectomy) Breast cancer (HCC) 2010 Left Breast(Simple Mastectomy, SLND) Chronic kidney disease COPD (chronic obstructive pulmonary disease) (HCC) Coronary artery disease Diabetes (HCC) Emphysema of lung (HCC) Within last year GERD (gastroesophageal reflux disease) High blood pressure Lung nodule -2022 Occlusion and stenosis of unspecified carotid artery Pure hypercholesterolemia Syncope and collapse 08/29/2022 SURGICAL HISTORY Past Surgical History: Procedure Laterality Date BRONCHOSCOPY CARDIAC ELECTROPHYSIOLOGY PROCEDURE N/A 05/05/2024 Performed by Walt Leigh MD at [facility] Cardiac Cath/EP Lab CAROTID ENDARTERECTOMY Right 2008 CATARACT EXTRACTION Bilateral 2006 CHEST TUBE INSERTION Right 10/05/2023 ENDOBRONCHIAL ULTRASOUND EBUS (HISTORICAL) 10/05/2023 LUNG BIOPSY MASTECTOMY Left 2010 simple/reconstruction/gingivagrapht MASTECTOMY Right 1993 reconstruction (TRAM) TOTAL ABDOMINAL HYSTERECTOMY W/ BILATERAL SALPINGOOPHORECTOMY 1998 TUBAL LIGATION 1979 CURRENT MEDICATIONS Previous Medications ALBUTEROL (VENTOLIN HFA) 108 (90 BASE) MCG/ACT INHALER Inhale 2 puffs every 4 hours as needed for wheezing or shortness of breath. AMLODIPINE (NORVASC) 2.5 MG TABLET Take 1 tablet (2.5 mg) by mouth daily. APIXABAN (ELIQUIS) 5 MG TABLET Take 1 tablet (5 mg) by mouth 2 times daily. CARVEDILOL (COREG) 12.5 MG TABLET Take 1 tablet (12.5 mg) by mouth 2 times daily (with meals). CHOLECALCIFEROL (VITAMIN D-3) 50 MCG (2000 UT) TABLET Take 4,000 Units by mouth daily. CONTOUR NEXT TEST TEST STRIP USE ONE strip TO test TWICE DAILY CYANOCOBALAMIN (B-12) 1000 MCG CAPSULE Take 1 tablet by mouth daily. EZETIMIBE (ZETIA) 10 MG TABLET Take 1 tablet (10 mg) by mouth in the morning. FINERENONE (KERENDIA) 10 MG TABLET Take 1 tablet by mouth daily. FLUTICASONE (CUTIVATE) 0.05 % CREAM Apply topically Daily as needed (itching). FUROSEMIDE (LASIX) 20 MG TABLET Take 1 tablet (20 mg) by mouth daily. Do not start before August 30, 2024. ICOSAPENT ETHYL (VASCEPA) 1 G CAPSULE Take 2 capsules (2 g) by mouth 2 times daily (with meals). JENTADUETO XR 2.5-1000 MG PER 24 HR TABLET take 2 tablets by mouth once daily LANSOPRAZOLE (PREVACID) [address] CAPSULE 1 capsule in the morning. LOSARTAN (COZAAR) 100 MG TABLET Take 1 tablet (100 mg) by mouth daily. MULTIPLE VITAMINS-MINERALS (MULTIPLE VITAMINS/WOMENS PO) Take by mouth daily. PREDNISONE (DELTASONE) 5 MG TABLET Take with 10mg prednisone for 15mg daily ROSUVASTATIN (CRESTOR) 10 MG TABLET daily. SERTRALINE (ZOLOFT) 25 MG TABLET Take 1 tablet (25 mg) by mouth daily. TIOTROPIUM (SPIRIVA RESPIMAT) 2.5 MCG/ACT INHALER Inhale 2 puffs daily. ALLERGIES Isosulfan blue, Methylene blue, and Sulfa antibiotics FAMILY HISTORY Family History Problem Relation Name Age of Onset Ovarian cancer Mother 66 Heart attack Father Lucita (Mother) 76 High Blood Pressure Father Lucita (Mother) Macular degeneration Father Lucita (Mother) Cancer Father Lucita (Mother) Ovarian cancer Mother's Sister 45 Other ([id number]) Son neuofibromatosis, BRCA1 positive Neurofibromatosis Son High Blood Pressure Son Cancer Son hairy cell leukemia Breast cancer Cousin 42 +brca Bladder Cancer Cousin 19 Hypertension Sister Angie Kidney disease Sister Angie Hypertension Sister Mireya Sister Kidney disease Sister Mireya Sister SOCIAL HISTORY Social History Socioeconomic History Marital status: Tobacco Use Smoking status: Former Current packs/day: 0.00 Average packs/day: 1 pack/day for 30.0 years (30.0 ttl pk-yrs) Types: Cigarettes Start date: 08/17/1963 Quit date: 08/17/1993 Years since quittin.2 Smokeless tobacco: Never 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: , 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[facility], 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, 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 Vaping Use Vaping status: Never Used Substance and Sexual Activity Alcohol use: Yes Alcohol/week: 2.0 - 16.0 standard drinks of alcohol Types: 2 Glasses of wine per week Comment: occ Drug use: No Comment: caffeine use: 1 cup of coffee a day Sexual activity: Not Currently Partners: Male control/protection: Other Social Drivers of Health Food Insecurity: No Food Insecurity (01/19/2024) Hunger Vital Sign Worried About Running Out of Food in the Last Year: Never true Ran Out of Food in the Last Year: Never true Transportation Needs: No Transportation Needs (01/19/2024) PRAPARE - Transportation Lack of Transportation (Medical): No Lack of Transportation (Non-Medical): No Intimate Partner Violence: Not At Risk (08/27/2024) Humiliation, Afraid, Rape, and Kick questionnaire Fear of Current or Ex-Partner: No Emotionally Abused: No Physically Abused: No Sexually Abused: No Housing Stability: Low Risk (01/19/2024) Housing Stability Vital Sign Unable to Pay for Housing in the Last Year: No Number of Places Lived in the Last Year: 1 Unstable Housing in the Last Year: No PHYSICAL EXAM ED Triage Vitals [11/08/24 1333] Temp Heart Rate Resp BP 36.4 C (97.5 F) 78 14 (!) 117/45 SpO2 Temp Source Heart Rate Source Patient Position 100 % Temporal Monitor -- BP Location FiO2 (%) -- -- Physical Exam Vitals and nursing note reviewed. Constitutional: General: She is not in acute distress. Appearance: She is well-developed. HENT: Head: Normocephalic and atraumatic. Eyes: Conjunctiva/sclera: Conjunctivae normal. Cardiovascular: Rate and Rhythm: Normal rate and regular rhythm. Heart sounds: No murmur heard. Pulmonary: Effort: Pulmonary effort is normal. No respiratory distress. Breath sounds: Normal breath sounds. Abdominal: Palpations: Abdomen is soft. Tenderness: There is no abdominal tenderness. Musculoskeletal: General: No swelling. Cervical back: Neck supple. Skin: General: Skin is warm and dry. Capillary Refill: Capillary refill takes less than 2 seconds. Neurological: General: No focal deficit present. Mental Status: She is alert and oriented to person, place, and time. Comments: Moving all extremities. NIH score 0. Sensation intact throughout. No ataxia. Psychiatric: Mood and Affect: Mood normal. DIAGNOSTIC RESULTS RADIOLOGY (Per Emergency Physician): Interpretation per the Radiologist below, if available at the time of this note: XR chest 1 view Final Result No acute cardiopulmonary process. Report Dictated on Electronically Signed By: Amanuel Rosas MD Electronically Signed Date/Time: 11/08/2024 2:[address] head wo IV contrast Final Result No evidence of an acute intracranial process. Report Dictated on Electronically Signed By: Amanuel Rosas MD Electronically Signed Date/Time: 11/08/2024 2:36 PM EDT LABS: Labs Reviewed OCCULT BLOOD, STOOL - Abnormal Result Value Fecal occult blood Positive (*) Narrative: Methodology: Immunoassay CBC WITH AUTO DIFFERENTIAL - Abnormal Auto WBC 11.0 (*) RBC 2.39 (*) Hemoglobin 6.6 (*) Hematocrit 21.3 (*) MCV 89.1 MCH 27.6 MCHC 31.0 RDW 16.0 (*) Platelets 298 MPV 8.7 (*) nRBC 0.3 Neutrophils Relative 78.2 Lymphocytes Relative 7.8 (*) Monocytes Relative 9.6 Eosinophils Relative 1.4 Basophils Relative 0.5 Immature Grans % 2.5 (*) Neutrophils Absolute 8.6 (*) Lymphocytes Absolute 0.9 (*) Monocytes Absolute 1.1 (*) Eosinophils Absolute 0.2 Basophils Absolute 0.1 Immature Grans Absolute 0.3 (*) COMPREHENSIVE METABOLIC PANEL - Abnormal SODIUM 139 POTASSIUM 3.9 CHLORIDE 105 CARBON DIOXIDE 18 (*) ANION GAP 16 (*) UREA NITROGEN 23 CREATININE 0.91 GLUCOSE 152 (*) CALCIUM 8.5 (*) AST (SGOT) 32 ALT 49 (*) ALKALINE PHOSPHATASE 49 ALBUMIN 2.9 (*) BILIRUBIN, TOTAL 0.6 TOTAL PROTEIN 5.5 (*) eGFR 64.7 NT PRO BNP - Abnormal NT PRO BNP 3,683 (*) HIGH SENSITIVITY TROPONIN, SERIAL BASELINE - Normal Troponin HS Serial Baseline 12 HIGH SENSITIVITY TROPONIN, SERIAL, SECOND TEST - Normal 2h Troponin HS (Serial 2nd Troponin) 11 BLOOD TYPE AND SCREEN GEL ABO Grouping O Antibody Screen NEG Rh Type POS HEMOGLOBIN AND HEMATOCRIT, BLOOD PREPARE RBC PRODUCT CODE B0859C14 Unit Number [id number] Unit ABO O Unit RH POS Crossmatch interpretation COMP Dispense Status Transfused Blood Expiration Date [id number] Product Blood Type 5100 Unit Volume 300 All other labs were within normal range or not returned as of this dictation. EMERGENCY DEPARTMENT COURSE and DIFFERENTIAL DIAGNOSIS/MDM: Vitals: Vitals: 11/08/24 1409 11/08/24 1615 11/08/24 1625 11/08/24 1643 BP: (!) 149/48 (!) 149/48 (!) 159/49 BP Location: Right arm Patient Position: Lying Pulse: 76 76 76 Resp: 14 14 Temp: 36.6 C (97.9 F) 36.6 C (97.9 F) 36.7 C (98.1 F) TempSrc: SpO2: 100% 99% 100% Weight: 61.2 kg (135 lb) Height: 1.702 m (5' 7) Medications sodium chloride 0.9 % infusion (has no administration in time range) SCREENINGS Norman Coma Scale Best Eye Response: Spontaneous Best Verbal Response: Oriented Best Motor Response: Follows commands Steffany Coma Scale Score: 15 79-year-old female patient presents emergency department for evaluation of anemia. Downtrending hemoglobin over the last few months. Today hemoglobin critically low at 6.6. She is on chronic anticoagulation by Eliquis secondary to A-fib. She did have some lightheadedness earlier today. No active hemorrhage anywhere noted. Electrolytes appear to be within normal limits. Troponins are stable. Hemoccult positive on exam. 1 unit of PRBCs was ordered. Patient will require admission for further evaluation. Spoke with Dr. Toledo who accepted. PROCEDURES: Unless otherwise noted below, none Procedures FINAL IMPRESSION 1. Symptomatic anemia 2. Chronic anticoagulation DISPOSITION Admit 11/08/2024 05:19:46 PM PATIENT REFERRED TO: No follow-up provider specified. DISCHARGE MEDICATIONS: New Prescriptions No medications on file (Comment: Please note this report has been produced using speech recognition software and may contain errors related to that system including errors in grammar, punctuation, and spelling, as well as words and phrases that may be inappropriate. If there are any questions or concerns please feel freeto contact the dictating provider for clarification.) Ned Alvarado DO (electronically signed) Emergency Medicine Provider Ned Alvarado DO 11/08/24 1721 documented in this [facility]03-25-2025 Physician Emergency department Note* Ned Alvarado DO - 11/08/2024 1:28 PM EDT EMERGENCY DEPARTMENT ENCOUNTER Pt Name: Rolando Peters Birthdate 1945 Date of evaluation: 11/08/2024 ED Provider: Ned Alvarado DO CHIEF COMPLAINT Chief Complaint Patient presents with Abnormal Lab Pt comes in due to having her pcp call her and send her in after having blood work drawn up and wastold her hemoglobin has dropped to 7 now from 10. Pt is alert and oriented vitals taken In triage HISTORY OF PRESENT ILLNESS (Location/Symptom, Timing/Onset, Context/Setting, Quality, Duration, Modifying Factors, Severity) Note limiting factors. I wore appropriate PPE for the entirety of this encounter. HPI Rolando Peters is a 79 y.o. who presents to the emergency department for evaluation of anemia. She had lab work drawn through cardiology yesterday found to have a hemoglobin of 7.1 at the beginning of October it was 8.3 and in August was 10. She is on Eliquis. She states over the last few days she hasbeen having some fatigue and lightheadedness. She denies any black or bloody stools. She denies anychest pain. She states she does feel winded easily. No numbness or weakness in extremities. No cough or congestion. No urinary symptoms. Nursing Notes were reviewed. Limitations to history: None Outside historians: None REVIEW OF SYSTEMS Review of Systems Constitutional: Positive for fatigue. Negative for chills and fever. HENT: Negative for ear pain and sore throat. Eyes: Negative for pain and visual disturbance. Respiratory: Negative for cough and shortness of breath. Cardiovascular: Negative for chest pain and palpitations. Gastrointestinal: Negative for abdominal pain and vomiting. Genitourinary: Negative for dysuria and hematuria. Musculoskeletal: Negative for arthralgias and back pain. Skin: Negative for color change and rash. Neurological: Positive for light-headedness. Negative for seizures and syncope. All other systems reviewed and are negative. Pertinent positives and negatives as per HPI PAST MEDICAL HISTORY Past Medical History: Diagnosis Date Arrhythmia Arthritis Asthma Breast cancer (HCC) 1993 Right Breast(Mastectomy) Breast cancer (HCC) 2010 Left Breast(Simple Mastectomy, SLND) Chronic kidney disease COPD (chronic obstructive pulmonary disease) (HCC) Coronary artery disease Diabetes (HCC) Emphysema of lung (HCC) Within last year GERD (gastroesophageal reflux disease) High blood pressure Lung nodule -2022 Occlusion and stenosis of unspecified carotid artery Pure hypercholesterolemia Syncope and collapse 08/29/2022 SURGICAL HISTORY Past Surgical History: Procedure Laterality Date BRONCHOSCOPY CARDIAC ELECTROPHYSIOLOGY PROCEDURE N/A 05/05/2024 Performed by Walt Leigh MD at [facility] Cardiac Cath/EP Lab CAROTID ENDARTERECTOMY Right 2008 CATARACT EXTRACTION Bilateral 2006 CHEST TUBE INSERTION Right 10/05/2023 ENDOBRONCHIAL ULTRASOUND EBUS (HISTORICAL) 10/05/2023 LUNG BIOPSY MASTECTOMY Left 2010 simple/reconstruction/gingivagrapht MASTECTOMY Right 1993 reconstruction (TRAM) TOTAL ABDOMINAL HYSTERECTOMY W/ BILATERAL SALPINGOOPHORECTOMY 1998 TUBAL LIGATION 1978 CURRENT MEDICATIONS Previous Medications ALBUTEROL (VENTOLIN HFA) 108 (90 BASE) MCG/ACT INHALER Inhale 2 puffs every 4 hours as needed for wheezing or shortness of breath. AMLODIPINE (NORVASC) 2.5 MG TABLET Take 1 tablet (2.5 mg) by mouth daily. APIXABAN (ELIQUIS) 5 MG TABLET Take 1 tablet (5 mg) by mouth 2 times daily. CARVEDILOL (COREG) 12.5 MG TABLET Take 1 tablet (12.5 mg) by mouth 2 times daily (with meals). CHOLECALCIFEROL (VITAMIN D-3) 50 MCG (2000 UT) TABLET Take 4,000 Units by mouth daily. CONTOUR NEXT TEST TEST STRIP USE ONE strip TO test TWICE DAILY CYANOCOBALAMIN (B-12) 1000 MCG CAPSULE Take 1 tablet by mouth daily. EZETIMIBE (ZETIA) 10 MG TABLET Take 1 tablet (10 mg) by mouth in the morning. FINERENONE (KERENDIA) 10 MG TABLET Take 1 tablet by mouth daily. FLUTICASONE (CUTIVATE) 0.05 % CREAM Apply topically Daily as needed (itching). FUROSEMIDE (LASIX) 20 MG TABLET Take 1 tablet (20 mg) by mouth daily. Do not start before August 30, 2024. ICOSAPENT ETHYL (VASCEPA) 1 G CAPSULE Take 2 capsules (2 g) by mouth 2 times daily (with meals). JENTADUETO XR 2.5-1000 MG PER 24 HR TABLET take 2 tablets by mouth once daily LANSOPRAZOLE (PREVACID) [address] CAPSULE 1 capsule in the morning. LOSARTAN (COZAAR) 100 MG TABLET Take 1 tablet (100 mg) by mouth daily. MULTIPLE VITAMINS-MINERALS (MULTIPLE VITAMINS/WOMENS PO) Take by mouth daily. PREDNISONE (DELTASONE) 5 MG TABLET Take with 10mg prednisone for 15mg daily ROSUVASTATIN (CRESTOR) 10 MG TABLET daily. SERTRALINE (ZOLOFT) 25 MG TABLET Take 1 tablet (25 mg) by mouth daily. TIOTROPIUM (SPIRIVA RESPIMAT) 2.5 MCG/ACT INHALER Inhale 2 puffs daily. ALLERGIES Isosulfan blue, Methylene blue, and Sulfa antibiotics FAMILY HISTORY Family History Problem Relation Name Age of Onset Ovarian cancer Mother 66 Heart attack Father Lucita (Mother) 76 High Blood Pressure Father Lucita (Mother) Macular degeneration Father Lucita (Mother) Cancer Father Lucita (Mother) Ovarian cancer Mother's Sister 45 Other ([id number]) Son neuofibromatosis, BRCA1 positive Neurofibromatosis Son High Blood Pressure Son Cancer Son hairy cell leukemia Breast cancer Cousin 42 +brca Bladder Cancer Cousin 19 Hypertension Sister Angie Kidney disease Sister Angie Hypertension Sister Mireya Sister Kidney disease Sister Mireya Sister SOCIAL HISTORY Social History Socioeconomic History Marital status: Tobacco Use Smoking status: Former Current packs/day: 0.00 Average packs/day: 1 pack/day for 30.0 years (30.0 ttl pk-yrs) Types: Cigarettes Start date: 08/17/1963 Quit date: 08/17/1993 Years since quittin.2 Smokeless tobacco: Never 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: , 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[facility], 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, 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 Vaping Use Vaping status: Never Used Substance and Sexual Activity Alcohol use: Yes Alcohol/week: 2.0 - 16.0 standard drinks of alcohol Types: 2 Glasses of wine per week Comment: occ Drug use: No Comment: caffeine use: 1 cup of coffee a day Sexual activity: Not Currently Partners: Male control/protection: Other Social Drivers of Health Food Insecurity: No Food Insecurity (01/19/2024) Hunger Vital Sign Worried About Running Out of Food in the Last Year: Never true Ran Out of Food in the Last Year: Never true Transportation Needs: No Transportation Needs (01/19/2024) PRAPARE - Transportation Lack of Transportation (Medical): No Lack of Transportation (Non-Medical): No Intimate Partner Violence: Not At Risk (08/27/2024) Humiliation, Afraid, Rape, and Kick questionnaire Fear of Current or Ex-Partner: No Emotionally Abused: No Physically Abused: No Sexually Abused: No Housing Stability: Low Risk (01/19/2024) Housing Stability Vital Sign Unable to Pay for Housing in the Last Year: No Number of Places Lived in the Last Year: 1 Unstable Housing in the Last Year: No PHYSICAL EXAM ED Triage Vitals [11/08/24 1333] Temp Heart Rate Resp BP 36.4 C (97.5 F) 78 14 (!) 117/45 SpO2 Temp Source Heart Rate Source Patient Position 100 % Temporal Monitor -- BP Location FiO2 (%) -- -- Physical Exam Vitals and nursing note reviewed. Constitutional: General: She is not in acute distress. Appearance: She is well-developed. HENT: Head: Normocephalic and atraumatic. Eyes: Conjunctiva/sclera: Conjunctivae normal. Cardiovascular: Rate and Rhythm: Normal rate and regular rhythm. Heart sounds: No murmur heard. Pulmonary: Effort: Pulmonary effort is normal. No respiratory distress. Breath sounds: Normal breath sounds. Abdominal: Palpations: Abdomen is soft. Tenderness: There is no abdominal tenderness. Musculoskeletal: General: No swelling. Cervical back: Neck supple. Skin: General: Skin is warm and dry. Capillary Refill: Capillary refill takes less than 2 seconds. Neurological: General: No focal deficit present. Mental Status: She is alert and oriented to person, place, and time. Comments: Moving all extremities. NIH score 0. Sensation intact throughout. No ataxia. Psychiatric: Mood and Affect: Mood normal. DIAGNOSTIC RESULTS RADIOLOGY (Per Emergency Physician): Interpretation per the Radiologist below, if available at the time of this note: XR chest 1 view Final Result No acute cardiopulmonary process. Report Dictated on Electronically Signed By: Amanuel Rosas MD Electronically Signed Date/Time: 11/08/2024 2:[address] head wo IV contrast Final Result No evidence of an acute intracranial process. Report Dictated on Electronically Signed By: Amanuel Rosas MD Electronically Signed Date/Time: 11/08/2024 2:36 PM EDT LABS: Labs Reviewed OCCULT BLOOD, STOOL - Abnormal Result Value Fecal occult blood Positive (*) Narrative: Methodology: Immunoassay CBC WITH AUTO DIFFERENTIAL - Abnormal Auto WBC 11.0 (*) RBC 2.39 (*) Hemoglobin 6.6 (*) Hematocrit 21.3 (*) MCV 89.1 MCH 27.6 MCHC 31.0 RDW 16.0 (*) Platelets 298 MPV 8.7 (*) nRBC 0.3 Neutrophils Relative 78.2 Lymphocytes Relative 7.8 (*) Monocytes Relative 9.6 Eosinophils Relative 1.4 Basophils Relative 0.5 Immature Grans % 2.5 (*) Neutrophils Absolute 8.6 (*) Lymphocytes Absolute 0.9 (*) Monocytes Absolute 1.1 (*) Eosinophils Absolute 0.2 Basophils Absolute 0.1 Immature Grans Absolute 0.3 (*) COMPREHENSIVE METABOLIC PANEL - Abnormal SODIUM 139 POTASSIUM 3.9 CHLORIDE 105 CARBON DIOXIDE 18 (*) ANION GAP 16 (*) UREA NITROGEN 23 CREATININE 0.91 GLUCOSE 152 (*) CALCIUM 8.5 (*) AST (SGOT) 32 ALT 49 (*) ALKALINE PHOSPHATASE 49 ALBUMIN 2.9 (*) BILIRUBIN, TOTAL 0.6 TOTAL PROTEIN 5.5 (*) eGFR 64.7 NT PRO BNP - Abnormal NT PRO BNP 3,683 (*) HIGH SENSITIVITY TROPONIN, SERIAL BASELINE - Normal Troponin HS Serial Baseline 12 HIGH SENSITIVITY TROPONIN, SERIAL, SECOND TEST - Normal 2h Troponin HS (Serial 2nd Troponin) 11 BLOOD TYPE AND SCREEN GEL ABO Grouping O Antibody Screen NEG Rh Type POS HEMOGLOBIN AND HEMATOCRIT, BLOOD PREPARE RBC PRODUCT CODE [id number] Unit Number [id number] Unit ABO O Unit RH POS Crossmatch interpretation COMP Dispense Status Transfused Blood Expiration Date [id number] Product Blood Type 5100 Unit Volume 300 All other labs were within normal range or not returned as of this dictation. EMERGENCY DEPARTMENT COURSE and DIFFERENTIAL DIAGNOSIS/MDM: Vitals: Vitals: 11/08/24 1409 11/08/24 1615 11/08/24 1625 11/08/24 1643 BP: (!) 149/48 (!) 149/48 (!) 159/49 BP Location: Right arm Patient Position: Lying Pulse: 76 76 76 Resp: 14 14 Temp: 36.6 C (97.9 F) 36.6 C (97.9 F) 36.7 C (98.1 F) TempSrc: SpO2: 100% 99% 100% Weight: 61.2 kg (135 lb) Height: 1.702 m (5' 7) Medications sodium chloride 0.9 % infusion (has no administration in time range) SCREENINGS Norman Coma Scale Best Eye Response: Spontaneous Best Verbal Response: Oriented Best Motor Response: Follows commands Norman Coma Scale Score: 15 79-year-old female patient presents emergency department for evaluation of anemia. Downtrending hemoglobin over the last few months. Today hemoglobin critically low at 6.6. She is on chronic anticoagulation by Eliquis secondary to A-fib. She did have some lightheadedness earlier today. No active hemorrhage anywhere noted. Electrolytes appear to be within normal limits. Troponins are stable. Hemoccult positive on exam. 1 unit of PRBCs was ordered. Patient will require admission for further evaluation. Spoke with Dr. Toledo who accepted. PROCEDURES: Unless otherwise noted below, none Procedures FINAL IMPRESSION 1. Symptomatic anemia 2. Chronic anticoagulation DISPOSITION Admit 11/08/2024 05:19:46 PM PATIENT REFERRED TO: No follow-up provider specified. DISCHARGE MEDICATIONS: New Prescriptions No medications on file (Comment: Please note this report has been produced using speech recognition software and may contain errors related to that system including errors in grammar, punctuation, and spelling, as well as words and phrases that may be inappropriate. If there are any questions or concerns please feel freeto contact the dictating provider for clarification.) Ned Alvarado DO (electronically signed) Emergency Medicine Provider Ned Alvarado DO 11/08/24 1721 [facility] [id number] Miscellaneous Notes* Result Encounter Note - SUJATA Enamorado CNP - 11/07/2024 11:59 PM EDT PC to patient to review Hgb of 7.1. This is a drop of 1 g in the last 2 weeks and 3 g in the last 2months. This is likely the cause of her symptoms. She still is having shortness of breath and fatigue today. I recommended she go to the ER for further evaluation. She is agreeable. She is going to go to [place] so I will call in give them an update on why she is coming. documented in this encounterSSt. [facility] of God [id number] Progress note* Result Encounter Note - SUJATA Enamorado CNP - 11/07/2024 11:59 PM EDT PC to patient to review Hgb of 7.1. This is a drop of 1 g in the last 2 weeks and 3 g in the last 2months. This is likely the cause of her symptoms. She still is having shortness of breath and fatigue today. I recommended she go to the ER for further evaluation. She is agreeable. She is going to go to [place] so I will call in give them an update on why she is coming. [facility] [id number] Telephone encounter Note* Telephone Encounter - SUJATA Enamorado CNP - 11/07/2024 11:47 AM EDT Rx signed [facility] CenterPpjwpu63-75-0489 Miscellaneous Notes* Telephone Encounter - SUJATA Enamorado CNP - 11/07/2024 11:47 AM EDT Rx signed documented in this encounterSSt. John of God [id number] Evaluation + Plan note* Assessment & Plan Note - SUJATA Negrete CNP - 11/07/2024 11:41 AM EDT Associated Problem(s): CRUZ (dyspnea on exertion) -HS-Troponin STAT and CK total and CKMB STAT; if either is abnormal I have instructed her to go to ER, and not wait for a phone call of results from us. -Nuclear MPI previously ordered, but she has cancelled multiple times and now not scheduled until amonth or so. Will see if we can get that date moved up. [facility] [id number] Miscellaneous Notes* Assessment & Plan Note - SUJATA Negrete CNP - 11/07/2024 11:41 AM EDTAssociated Problem(s): CRUZ (dyspnea on exertion) -HS-Troponin STAT and CK total and CKMB STAT; if either is abnormal I have instructed her to go to ER, and not wait for a phone call of results from us. -Nuclear MPI previously ordered, but she has cancelled multiple times and now not scheduled until amonth or so. Will see if we can get that date moved up. 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 NYHA Class I. Thought rhythm-mediated. -TTE 07/2024 shows LVEF 55%, normal wall motion, increased filling pressures -her weight is up 2# today, but she appears compensated on exam. -continues on Losartan 100 mg daily -continues on Coreg as above -continues on Lasix 20 mg [id number] -this change was made 09/2024 due to both assessment in office 08/2024 and BMP with worsening creat * Assessment & Plan Note - SUJATA Negrete CNP - 11/07/2024 11:34 AM EDT Associated Problem(s): Obstructive sleep apnea syndrome -08/2024 received autoPAP, and reports compliance; encouraged absolute compliance * Assessment & Plan Note - SUJATA Negrete CNP - 11/07/2024 11:33 AM EDT Associated Problem(s): Dyslipidemia Target LDL <70. LDL 62 (11/2023) - Cont zetia - Cont crestor - Cont Vascepa - lipids due in November; she fasted today, so I will place that order -Cont lifestyle mgt given elev TG; if much higher over time, consider Tricor * Assessment & Plan Note - SUJATA Negrete CNP - 11/07/2024 11:32 AM EDT Associated Problem(s): Bilateral carotid artery stenosis Moderate. Coronary risk equivalent. No symptoms. She has a history of right carotid endarterectomy. -Carotid US 04/2024 - normal antegrade flow left and right -Given ASCVD and DM2 consider add SGLT2i * Assessment & Plan Note - SUJATA Negrete CNP - 11/07/2024 10:46 AM EDT Associated Problem(s): Essential hypertension Well-controlled on therapies. -continues on Losartan 100 mg daily -continues on Coreg 12.5 mg twice daily -continues on amlodipine 2.5 mg daily * Assessment & Plan Note - SUJATA Negrete CNP - 11/07/2024 10:45 AM EDT Associated Problem(s): PAF (paroxysmal atrial fibrillation) (HCC) Nonvalvular. Hx pAF s/p PVI + PWI + ablation of atypical atrial flutter on 05/06/2024. At one point she was on Amiodarone. -maintaining SR -continues on Eliquis 5 mg BID, per age/wt/creat -continues on Coreg 12.5 mg BID -follows with EP- Dr. Leigh on PRN basis documented in this [facility]03-24-2025 Evaluation + Plan note* Assessment & Plan Note - SUJATA Negrete CNP - 11/07/2024 11:37 AM EDT Associated Problem(s): 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) ACC Stage C. NYHA Class I. Thought rhythm-mediated. -TTE 07/2024 shows LVEF 55%, normal wall motion, increased filling pressures -her weight is up 2# today, but she appears compensated on exam. -continues on Losartan 100 mg daily -continues on Coreg as above -continues on Lasix 20 mg [id number] -this change was made 09/2024 due to both assessment in office 08/2024 and BMP with worsening creat [facility] [id number] Evaluation + Plan note* Assessment & Plan Note - SUJATA Negrete CNP - 11/07/2024 11:34 AM EDTAssociated Problem(s): Obstructive sleep apnea syndrome -08/2024 received autoPAP, and reports compliance; encouraged absolute compliance [facility] [id number] Evaluation + Plan note* Assessment & Plan Note - SUJATA Negrete CNP - 11/07/2024 11:33 AM EDTAssociated Problem(s): Dyslipidemia Target LDL <70. LDL 62 (11/2023) - Cont zetia - Cont crestor - Cont Vascepa - lipids due in November; she fasted today, so I will place that order -Cont lifestyle mgt given elev TG; if much higher over time, consider Tricor [facility] [id number] Evaluation + Plan note* Assessment & Plan Note - SUJATA Negrete CNP - 11/07/2024 11:32 AM EDTAssociated Problem(s): Bilateral carotid artery stenosis Moderate. Coronary risk equivalent. No symptoms. She has a history of right carotid endarterectomy. -Carotid US 04/2024 - normal antegrade flow left and right -Given ASCVD and DM2 consider add SGLT2i [facility] [id number] Evaluation + Plan note* Assessment & Plan Note - SUJATA Negrete CNP - 11/07/2024 10:46 AM EDTAssociated Problem(s): Essential hypertension Well-controlled on therapies. -continues on Losartan 100 mg daily -continues on Coreg 12.5 mg twice daily -continues on amlodipine 2.5 mg daily [facility] [id number] Evaluation + Plan note* Assessment & Plan Note - SUJATA Negrete CNP - 11/07/2024 10:45 AM EDTAssociated Problem(s): PAF (paroxysmal atrial fibrillation) (HCC) Nonvalvular. Hx pAF s/p PVI + PWI + ablation of atypical atrial flutter on 05/06/2024. At one point she was on Amiodarone. -maintaining SR -continues on Eliquis 5 mg BID, per age/wt/creat -continues on Coreg 12.5 mg BID -follows with EP- Dr. Leigh on PRN basis [id number] History of Present illness Narrative* SUJATA Negrete CNP - 11/07/2024 10:30 AM EDT Images from the original note were not included. [facility] - [address] [facility] [address] Dept: [phone] Dept Loc: [phone] Visit type: Established : 1945 Reason for Visit: Palpitations and Shortness of Breath Assessment and Plan 1. CRUZ (dyspnea on exertion) Assessment & Plan: -HS-Troponin STAT and CK total and CKMB STAT; if either is abnormal I have instructed her to go to ER, and not wait for a phone call of results from us. -Nuclear MPI previously ordered, but she has cancelled multiple times and now not scheduled until amonth or so. Will see if we can get that date moved up. Orders: - CK total and CKMB - Serial Troponin, High Sensitivity - Comprehensive metabolic panel - CBC auto differential 2. Heart failure with improved ejection fraction (HFimpEF) ([facility]) Assessment & Plan: ACC Stage C. NYHA Class I. Thought rhythm-mediated. -TTE 07/2024 shows LVEF 55%, normal wall motion, increased filling pressures -her weight is up 2# today, but she appears compensated on exam. -continues on Losartan 100 mg daily -continues on Coreg as above -continues on Lasix 20 mg [id number]-sev -this change was made 09/2024 due to both assessment in office 08/2024 and BMP with worsening creat Orders: - ECG 12 lead 3. PAF (paroxysmal atrial fibrillation) ([facility]) Assessment & Plan: Nonvalvular. Hx pAF s/p PVI + PWI + ablation of atypical atrial flutter on 05/06/2024. At one point she was on Amiodarone. -maintaining SR -continues on Eliquis 5 mg BID, per age/wt/creat -continues on Coreg 12.5 mg BID -follows with EP- Dr. Leigh on PRN basis 4. Essential hypertension Assessment & Plan: Well-controlled on therapies. -continues on Losartan 100 mg daily -continues on Coreg 12.5 mg twice daily -continues on amlodipine 2.5 mg daily Orders: - Lipid panel 5. Bilateral carotid artery stenosis Assessment & Plan: Moderate. Coronary risk equivalent. No symptoms. She has a history of right carotid endarterectomy. -Carotid US 04/2024 - normal antegrade flow left and right -Given ASCVD and DM2 consider add SGLT2i 6. Dyslipidemia Assessment & Plan: Target LDL <70. LDL 62 (11/2023) - Cont zetia - Cont crestor - Cont Vascepa - lipids due in November; she fasted today, so I will place that order -Cont lifestyle mgt given elev TG; if much higher over time, consider Tricor 7. Obstructive sleep apnea syndrome Assessment & Plan: -08/2024 received autoPAP, and reports compliance; encouraged absolute compliance Follow up for Next scheduled follow-up. Subjective Hx of carotid dz and CEA, breast CA, CKD stage II, tobacco abuse, COPD, HTN, HFmrEF, PAF She was last seen by Dr. Jerome April 2023 when she was stable from a cardiac standpoint. She was admitted to [facility] September 2023 with acute pneumothorax after having an outpatient [facility]. Shereceived a chest tube. No cardiac decompensation at that office visit. 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 Amiodarone + Cardioversion. Apr [address] Leigh PVI + PWI + atrial flutter ablation. No longer on Amiodarone. Aug 2024 hospitalized for pneumonia and right thoracentesis s/p 450 ml off. Cardiology consulted for chest pain, dyspnea, CHF, and diuresed with IV Lasix, changed home lasix from 20 mg PRN to 20 mg daily, and recommended Lexiscan stress test once recovered. Reviewed conversations from the hospital, including consideration of stress test once pneumonia andhypertension improve. Cardiology's consult note from when she was in hospital stated, Her high-sensitivity troponins were negative, and a CT angiogram was done of her chest and abdomen to rule out dissection and this was negative for dissection but did show diffuse atherosclerotic disease throughout her aorta and even a possible occlusion of the right iliac artery. Seen for hospital follow-up. Stress test ordered. She will follow-up with Dr. Jerome after that- alot has happened since she last saw him 04/2023. TODAY: She presents for urgent evaluation of a plethora of symptoms. She says it started over the weekend on Thursday. She had Hibachi, and hasn't felt right since. She denies N/V/D. Reports 1 glass wine Thursday, 2 glasses Thursday, and 2 glasses Thursday. Self medicating for stress. She says, I feel this impending doom. Left jaw, left cheondoism achy off/on; left arm tingling off/on; 2-3 weeks in duration She does have spinal stenosis, has been sleeping propped on pillows so she doesn't ruin her hair. HR a little higher between 80-99 Bilateral leg weakness off/on. CRUZ with steps and walking from office to car No chest pain, but reports discomfort between her shoulder blades; fleeting, from side to side Sleeping on 2+ pillows. Left ankle edema; I don't appreciate upon assessment Compliant with aPAP. Taking meds appropriately. 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 On top of that reports her daughter wants her to sell her house and move. See above discussion for tests ordered; she does have MyChart; if HS-troponin or CK total and CKMB come back abnormal proceed to the ER. If symptoms worsen or do not subside, proceed to the ER. Review of Systems Constitutional: Positive for unexpected weight change (2# increase). Negative for activity change, chills, diaphoresis, fatigue and fever. HENT: Negative for nosebleeds and trouble swallowing. Eyes: Negative for discharge and visual disturbance. Respiratory: Positive for apnea (compliant with aPAP), chest tightness (fleeting) and shortness of breath. Negative for cough and wheezing. Cardiovascular: Positive for chest pain (intermittent, side to side between shoulder blades), palpitations and leg swelling (left ankle). Gastrointestinal: Negative for abdominal distention, abdominal pain, blood in stool, diarrhea, nausea and vomiting. Endocrine: Negative for cold intolerance and heat intolerance. Genitourinary: Negative for hematuria. Musculoskeletal: Negative for gait problem and myalgias. Skin: Negative for color change and rash. Neurological: Positive for weakness (bilateral legs, intermittent) and numbness (fingertips). Negative for dizziness, tremors, seizures, syncope, facial asymmetry, speech difficulty, light-headednessand headaches. Left jaw, left cheondoism achy off/on; left arm tingling off/on; 2-3 weeks in duration Hematological: Does not bruise/bleed easily. Psychiatric/Behavioral: Positive for behavioral problems and dysphoric mood. Negative for confusionand decreased concentration. The patient is nervous/anxious. Allergies Allergen Reactions Isosulfan Blue Anaphylaxis Methylene Blue Sulfa Antibiotics Rash Outpatient Medications Prior to Visit Medication Sig Dispense Refill albuterol (Ventolin HFA) 108 (90 Base) MCG/ACT inhaler Inhale 2 puffs every 4 hours as needed for wheezing or shortness of breath. 8 g 11 amLODIPine (Norvasc) 2.5 MG tablet Take 1 tablet (2.5 mg) by mouth daily. 30 tablet 1 apixaban (Eliquis) 5 MG tablet Take 1 tablet (5 mg) by mouth 2 times daily. 180 tablet 1 atovaquone (Mepron) 750 MG/5ML suspension Take 10 mL (1,500 mg) by mouth daily. 600 mL 0 carvedilol (Coreg) 12.5 MG tablet Take 1 tablet (12.5 mg) by mouth 2 times daily (with meals). 180 tablet 3 cholecalciferol (Vitamin D-3) 50 MCG (2000 UT) tablet Take 4,000 Units by mouth daily. Contour Next Test test strip USE ONE strip TO test TWICE DAILY Cyanocobalamin (B-12) 1000 MCG capsule Take 1 tablet by mouth daily. ezetimibe (Zetia) 10 MG tablet Take 1 tablet (10 mg) by mouth in the morning. 90 tablet 2 Finerenone (Kerendia) 10 MG tablet Take 1 tablet by mouth daily. fluticasone (Cutivate) 0.05 % cream Apply topically Daily as needed (itching). furosemide (Lasix) 20 MG tablet Take 1 tablet (20 mg) by mouth daily. Do not start before August 30, 2024. (Patient taking differently: Take 20 mg by mouth every other day.) 30 tablet 0 Jentadueto XR 2.5-1000 MG per 24 hr tablet take 2 tablets by mouth once daily lansoprazole (Prevacid) [address] capsule 1 capsule in the morning. losartan (Cozaar) 100 MG tablet Take 1 tablet (100 mg) by mouth daily. 90 tablet 1 Multiple Vitamins-Minerals (MULTIPLE VITAMINS/WOMENS PO) Take by mouth daily. predniSONE (Deltasone) 5 MG tablet Take with 10mg prednisone for 15mg daily 28 tablet 0 rosuvastatin (Crestor) 10 MG tablet daily. sertraline (Zoloft) 25 MG tablet Take 1 tablet (25 mg) by mouth daily. 30 tablet 11 tiotropium (Spiriva Respimat) 2.5 MCG/ACT inhaler Inhale 2 puffs daily. 1 each 11 No facility-administered medications prior to visit. Past Medical History: Diagnosis Date Arrhythmia Arthritis Asthma Breast cancer (HCC) 1993 Right Breast(Mastectomy) Breast cancer (HCC) 2010 Left Breast(Simple Mastectomy, SLND) Chronic kidney disease COPD (chronic obstructive pulmonary disease) (HCC) Coronary artery disease Diabetes (HCC) Emphysema of lung (HCC) Within last year GERD (gastroesophageal reflux disease) High blood pressure Lung nodule -2022 Occlusion and stenosis of unspecified carotid artery Pure hypercholesterolemia Syncope and collapse 08/29/2022 Social History Tobacco Use Smoking status: Former Current packs/day: 0.00 Average packs/day: 1 pack/day for 30.0 years (30.0 ttl pk-yrs) Types: Cigarettes Start date: 08/17/1963 Quit date: 08/17/1993 Years since quittin.2 Smokeless tobacco: Never 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: , 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[facility], 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, 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 Substance Use Topics Alcohol use: Yes Alcohol/week: 2.0 - 16.0 standard drinks of alcohol Types: 2 Glasses of wine per week Comment: occ Past Surgical History: Procedure Laterality Date BRONCHOSCOPY CARDIAC ELECTROPHYSIOLOGY PROCEDURE N/A 05/05/2024 Performed by Walt Leigh MD at [facility] Cardiac Cath/EP Lab CAROTID ENDARTERECTOMY Right 2009 CATARACT EXTRACTION Bilateral 2006 CHEST TUBE INSERTION Right 10/05/2023 ENDOBRONCHIAL ULTRASOUND EBUS (HISTORICAL) 10/05/2023 LUNG BIOPSY MASTECTOMY Left 2010 simple/reconstruction/gingivagrapht MASTECTOMY Right 1993 reconstruction (TRAM) TOTAL ABDOMINAL HYSTERECTOMY W/ BILATERAL SALPINGOOPHORECTOMY 1998 TUBAL LIGATION 1979 Family History Problem Relation Name Age of Onset Ovarian cancer Mother 66 Heart attack Father Lucita (Mother) 76 High Blood Pressure Father Lucita (Mother) Macular degeneration Father Lucita (Mother) Cancer Father Lucita (Mother) Ovarian cancer Mother's Sister 45 Other ([id number]) Son neuofibromatosis, BRCA1 positive Neurofibromatosis Son High Blood Pressure Son Cancer Son hairy cell leukemia Breast cancer Cousin 42 +brca Bladder Cancer Cousin 19 Hypertension Sister Angie Kidney disease Sister Angie Hypertension Sister Mireya Sister Kidney disease Sister Mireya Sister Objective Vitals: 11/07/24 1036 BP: 136/50 BP Location: Left arm Patient Position: Sitting BP Cuff Size: Adult Pulse: 78 Weight: 135 lb 11.8 oz (61.6 kg) Height: 5' 7 (1.702 m) Physical Exam Constitutional: Appearance: Normal appearance. HENT: Head: Normocephalic. Eyes: General: No scleral icterus. Right eye: No discharge. Left eye: No discharge. Cardiovascular: Rate and Rhythm: Normal rate and regular rhythm. Pulses: Normal pulses. Heart sounds: Normal heart sounds. No murmur heard. Pulmonary: Effort: Pulmonary effort is normal. Breath sounds: Decreased breath sounds present. Abdominal: General: Abdomen is flat. Palpations: Abdomen is soft. Musculoskeletal: General: Normal range of motion. Cervical back: Normal range of motion. Skin: General: Skin is warm and dry. Capillary Refill: Capillary refill takes less than 2 seconds. Neurological: Mental Status: She is alert and oriented to person, place, and time. Psychiatric: Mood and Affect: Mood is anxious. Speech: Speech is tangential. Data Reviewed and Summarized Labs: Lab Results Component Value Date GLUCOSE 123 (H) 10/21/2024 CALCIUM 8.1 (L) 10/21/2024 NA 138 10/21/2024 K 4.2 10/21/2024 CO2 19 (L) 10/21/2024 CL 109 (H) 10/21/2024 BUN 19 10/21/2024 CREATININE 0.89 10/21/2024 Lab Results Component Value Date ALT 22 10/21/2024 AST 24 10/21/2024 ALKPHOS 41 10/21/2024 BILITOT 0.5 10/21/2024 Lab Results Component Value Date WBC 9.4 10/21/2024 HGB 8.3 (L) 10/21/2024 HCT 26.1 (L) 10/21/2024 MCV 88.2 10/21/2024 PLT 243 10/21/2024 Lab Results Component Value Date TSH 1.13 12/03/2022 Lab Results Component Value Date CHOL 149 06/14/2020 CHOL 170 08/22/2019 Lab Results Component Value Date HDL 45 06/14/2020 HDL 54 08/22/2019 No results found for: LDLCALC Lab Results Component Value Date TRIG 265 (A) 06/14/2020 TRIG 280 (A) 08/22/2019 No results found for: CHOLHDL No results found for: HGBA1C Wt Readings from Last 3 Encounters: 11/07/24 135 lb 11.8 oz (61.6 kg) 10/28/24 133 lb (60.3 kg) 09/16/24 133 lb 8 oz (60.6 kg) Cardiac Tests / Imagin07/25/24 TRANSTHORACIC ECHOCARDIOGRAM (TTE) COMPLETE (CONTRAST/BUBBLE/3D PRN) 07/25/2024 4:27 PM (Final) Interpretation Summary Left Ventricle: Left ventricle size is normal. Normal wall thickness. Normal left ventricular systolic function. EF by 2D Simpsons Biplane is 55%. Normal wall motion. Grade II diastolic dysfunction with increased LAP. Right Ventricle: Right ventricle size is normal. Normal systolic function. Aortic Valve: Mild (1+) regurgitation. Mild stenosis of the aortic valve. AV mean gradient is 7 mmHg. Mitral Valve: Moderately thickened leaflets. Mildly calcified leaflets. Mild annular calcification.Moderate (2+) regurgitation with a posterior directed jet. Mild stenosis noted. Tricuspid Valve: Mild to moderate (1-2+) regurgitation. RVSP is 72 mmHg. Signed by: Fabiola Potter on 07/25/2024 4:27 PM I, SUJATA Bullock CNP, furnish ongoing care related to Rolando Peters single, serious and complex condition(s) HFimpEF. I assume responsibility for the patient's ongoing medical care of this condition. SUJATA Bullock CNP documented in this [facility]03-14-2025 History of Present illness Narrative* Stephanie Arana DO - 10/28/2024 9:45 AM EDT [facility] [place] Medicine [address] [place], [place] [id number] Pulmonary Patient Visit 10/28/2024 Referring Physician: CELIA AL DO Reason for Referral: Lung Nodules 09/29/23 History of Present Illness Rolando Peters is a 79 y.o. female with history of stage I triple negative breast cancer s/p left mastectomy 05/2011, right-sided breast cancer s/p mastectomy 06/1994 s/p adjuvant chemo/tamoxifen, CKD who presented for evaluation of multiple PET avid pulmonary nodules. Patient reported she follows with oncology Dr. Marcus. Stated that she was referred to Dr. Marcus as she has had progressive weightloss, about 50 pounds since 07/2022. Admitted to a chronic mostly nonproductive cough and postnasaldrip. Reported progressive CRUZ with stairs, denied any shortness of breath at rest. Stated she was diagnosed with exercise-induced asthma several years ago, has an albuterol inhaler which she rarely requires. Denied any hemoptysis, chest pain, night sweats. Initially diagnosed with INGA in 2007, completed PSG and prescribed CPAP with nasal mask, but has not been compliant. 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 Procedure complicated by pneumothorax requiring chest tube. 12/04/23 Currently on prednisone 30mg until next week. Was started on Spiriva and noticed improvement of wheezing except on the day that she forgot to take it. 03/11/2024 Patient reported that she was hospitalized in January for A-fib with RVR and HFpEF exacerbation. Just completing her steroid taper. Now feeling improved from a respiratory standpoint. 08/19/24 Patient reported worsening respiratory symptoms including increased dyspnea on exertion and worsening nonproductive cough. Using albuterol more often, 2-3 times daily with her Spiriva. 09/07/24 Restarted on prednisone at last visit. Patient was hospitalized last week for worsening CRUZ and chest pain. Infectious evaluation was negative. S/p R thoracentesis with 450 ml transudative fluid. Discharged on daily lasix. Stated that her breathing is now back to baseline. 10/28/24 Feb with Flu A s/p Tamiflu. Last week with UTI s/p Keflex. Stopped prednisone 1 week ago per ER instructions. Had been on prednisone 40mg daily for many weeks as she was unsure about tapering. Admitted to fatigue. CRUZ much improved. Denied any SOB, cough, wheezing, chest tightness. PastMedical History Past Medical History: Diagnosis Date Arrhythmia Arthritis Asthma Breast cancer (HCC) 1993 Right Breast(Mastectomy) Breast cancer (HCC) 2010 Left Breast(Simple Mastectomy, SLND) Chronic kidney disease COPD (chronic obstructive pulmonary disease) (HCC) Coronary artery disease Diabetes (HCC) Emphysema of lung (HCC) Within last year GERD (gastroesophageal reflux disease) High blood pressure Lung nodule -2022 Occlusion and stenosis of unspecified carotid artery Pure hypercholesterolemia Syncope and collapse 08/29/2022 Past Surgical History Past Surgical History: Procedure Laterality Date BRONCHOSCOPY CARDIAC ELECTROPHYSIOLOGY PROCEDURE N/A 05/05/2024 Performed by Walt Leigh MD at [facility] Cardiac Cath/EP Lab CAROTID ENDARTERECTOMY Right 2008 CATARACT EXTRACTION Bilateral 2006 CHEST TUBE INSERTION Right 10/05/2023 ENDOBRONCHIAL ULTRASOUND EBUS (HISTORICAL) 10/05/2023 LUNG BIOPSY MASTECTOMY Left 2010 simple/reconstruction/gingivagrapht MASTECTOMY Right 1993 reconstruction (TRAM) TOTAL ABDOMINAL HYSTERECTOMY W/ BILATERAL SALPINGOOPHORECTOMY 1998 TUBAL LIGATION 1979 Allergies Allergies Allergen Reactions Isosulfan Blue Anaphylaxis Methylene Blue Sulfa Antibiotics Rash Medications Medication Documentation Review Audit Reviewed by Stephanie Arana DO (Physician) on 10/28/24 at 1005 Medication Order Taking? Sig Documenting Provider Last Dose Status albuterol (Ventolin HFA) 108 (90 Base) MCG/ACT inhaler [id number] Yes Inhale 2 puffs every 4 hours asneeded for wheezing or shortness of breath. Stephanie Arana DO Active amLODIPine (Norvasc) 2.5 MG tablet [id number] Yes Take 1 tablet (2.5 mg) by mouth daily. Nataly Wilson MD Active apixaban (Eliquis) 5 MG tablet [id number] Yes Take 1 tablet (5 mg) by mouth 2 times daily. SUJATA Gamble CNP Active atovaquone (Mepron) 750 MG/5ML suspension [id number] Yes Take 10 mL (1,500 mg) by mouth daily. Stephanie Arana DO Active carvedilol (Coreg) 12.5 MG tablet [id number] Yes Take 1 tablet (12.5 mg) by mouth 2 times daily (with meals). Kristy Doran APRN - FRANSISCO Active cephalexin (Keflex) 500 MG capsule [id number] Take 1 capsule (500 mg) by mouth 2 times daily for 5 days. Patient not taking: Reported on 10/28/2024 Parrish Chaidez DO 10/26/24 9641 cholecalciferol (Vitamin D-3) 50 MCG (1999 UT) tablet [id number] Yes Take 4,000 Units by mouth daily.Historical Provider, Active Contour Next Test test strip [id number] Yes USE ONE strip TO test TWICE DAILY Historical Provider, Active Cyanocobalamin (B-12) 1000 MCG capsule [id number] Yes Take 1 tablet by mouth daily. Historical Provider, Active ezetimibe (Zetia) 10 MG tablet [id number] Yes Take 1 tablet (10 mg) by mouth in the morning. SUJATA Negrete CNP Active Finerenone (Kerendia) 10 MG tablet [id number] Yes Take 1 tablet by mouth daily. Historical Provider, Active fluticasone (Cutivate) 0.05 % cream [id number] Yes Apply topically Daily as needed (itching). Historical Provider, Active Patient not taking: Discontinued 10/28/24 0954 furosemide (Lasix) 20 MG tablet [id number] Yes Take 1 tablet (20 mg) by mouth daily. Do not start before August 30, 2024. Nataly Wilson MD Active Jentadueto XR 2.5-1000 MG per 24 hr tablet [id number] Yes take 2 tablets by mouth once daily Historical ProviderMD Active lansoprazole (Prevacid) [address] capsule [id number] Yes 1 capsule in the morning. Historical ProviderMD Active losartan (Cozaar) 100 MG tablet [id number] Yes Take 1 tablet (100 mg) by mouth daily. SUJATA Enamorado CNP Active Multiple Vitamins-Minerals (MULTIPLE VITAMINS/WOMENS PO) [id number] Yes Take by mouth daily. Historical ProviderMD Active rosuvastatin (Crestor) 10 MG tablet [id number] Yes daily. Historical ProviderMD Active sertraline (Zoloft) 25 MG tablet [id number] Yes Take 1 tablet (25 mg) by mouth daily. Steven Stewart, DO Active tiotropium (Spiriva Respimat) 2.5 MCG/ACT inhaler [id number] Yes Inhale 2 puffs daily. 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 Substance Use Topics Alcohol use: Yes Alcohol/week: 2.0 - 16.0 standard drinks of alcohol Types: 2 Glasses of wine per week Comment: occ FamilyHistory Family History Problem Relation Name Age of Onset Ovarian cancer Mother 66 Heart attack Father Lucita (Mother) 76 High Blood Pressure Father Lucita (Mother) Macular degeneration Father Lucita (Mother) Cancer Father Lucita (Mother) Ovarian cancer Mother's Sister 45 Other ([id number]) Son neuofibromatosis, BRCA1 positive Neurofibromatosis Son High Blood Pressure Son Cancer Son hairy cell leukemia Breast cancer Cousin 42 +brca Bladder Cancer Cousin 19 Hypertension Sister Angie Kidney disease Sister Angie Hypertension Sister Mireya Sister Kidney disease Sister Mireya Sister Review of Systems Review of Systems Constitutional: Negative. Respiratory: Negative. Cardiovascular: Negative. Physical Exam Vitals: 10/28/24 0950 BP: 126/64 Pulse: 89 SpO2: 97% Weight: 133 lb (60.3 kg) Height: 5' 7 (1.702 m) Physical Exam Vitals reviewed. Constitutional: General: She is not in acute distress. Comments: Elderly HENT: Head: Normocephalic and atraumatic. Nose: No congestion. Mouth/Throat: Mouth: Mucous membranes are moist. Eyes: General: No scleral icterus. Extraocular Movements: Extraocular movements intact. Cardiovascular: Rate and Rhythm: Normal rate and regular rhythm. Heart sounds: Murmur heard. Pulmonary: Effort: Pulmonary effort is normal. No respiratory distress. Breath sounds: Normal breath sounds. No wheezing, rhonchi or rales. Musculoskeletal: Comments: Trace ankle edema Skin: General: Skin is warm and dry. Neurological: Mental Status: She is alert and oriented to person, place, and time. Psychiatric: Mood and Affect: Mood normal. Labs: Available studies were reviewed Radiology: Personally reviewed and interpreted Chest CT 08/24/2023: Interval development of scattered focal consolidations in the lungs, particularly in the apical left lung lobes as discussed. Recommended short-term follow-up imaging to document resolution. Interval development of new lateral right middle lung lobe nodule with interval enlargement of other previously noted nodules as discussed. Further clinical attention and workup is warranted. Moderate pulmonary emphysema. Coronary and aortic atherosclerosis. Other chronic findings as discussed. PET/CT 09/17/23: 1 cm irregular nodular density within the lateral aspect of the right upper lobe onthe low-dose CT images demonstrates intense FDG accumulation, consistent with malignancy. A 7 mm nodular density within the anteromedial right lower lobe also demonstrates abnormal FDG accumulation, suspicious for malignancy. A streaky density within the left lower lobe on the low-dose CT images demonstrates mild FDG accumulation, less than typically expected for malignancy. A small, somewhat streaky nodular density within the medial aspect of the right lower lobe also demonstrates mild FDG uptake. There is a linear density at the posterior aspect of the left lung apex which demonstrate mild to moderate FDG accumulation which is nonspecific, however the linear configuration of this area is more suggestive of an inflammatory etiology. CT follow-up of these findings is recommended. No evidence of regional edmond or distant metastatic disease. Chest CT 11/25/23: Multiple bilateral areas of lung parenchymal abnormality and increased activity on the previous PET/CT are unchanged. There is a new 6 mm nodular density in the left upper lobe lung. Continued follow-up CT would be helpful. Chest CT 02/24/2024: 1. Interval improvement of anterior left upper lung lobe infiltrates with residual opacities still observed. Follow-up imaging to document resolution. 2. New apical right lower lung lobe and subpleural right middle lung lobe 6 mm nodules. For these nodule characteristics, Fleischner society recommends CT at 3-6 months and then at 18-24 months. 3. Coronary and aortic atherosclerosis. 4. Other chronic and postsurgical findings as discussed. Chest CT 05/27/2024: Interval development of several groundglass and solid pulmonary nodules measuring up to 2.4 cm and 9 mm respectively. In addition, increased size of several previously noted pulmonary nodules. Further clinical evaluation is warranted in this given clinical context. Interval development of right-sided pleural effusion with passive atelectasis. Coronary and aortic atherosclerosis. Other chronic and postsurgical findings as discussed. Chest CT 07/27/2024: 1. Numerous indeterminate small and clustered irregular nodularities. Some appear slightly enlarged and some slightly smaller and are indeterminate. The largest single nodularityin the right lower lobe 1.0 x 0.9 cm. Right lower lobe groundglass nodule has resolved. No new groundglass nodules. These could be infectious or inflammatory. Neoplastic etiology is felt a less likely consideration but not excluded. Recommend continued follow-up in 3-6 months. 2. Chronic moderate right pleural effusion minimally enlarged. 3. Severe atherosclerosis coronary artery, aorta and splenic artery. There is some at least mild stenosis within the upper abdominal aorta. This is incompletely evaluated without contrast. Chest CT 08/26/2024: 1. No evidence of acute aortic dissection, penetrating atherosclerotic ulcer orintramural hematoma. 2. Advanced atherosclerotic disease. Redemonstration of marked stenosis versus occlusion of the proximal right internal iliac artery. Numerous other areas of stenosis are present, as detailed above. 3. Multiple lung nodules bilaterally, posterior which are unchanged but with a worsening cluster ofnodular densities in the right lower lobe. These are indeterminate but could be due to progressive infectious/inflammatory process. However, recommend either short-term follow-up imaging in three months or tissue sampling or PET/CT as a neoplasm is not excluded. 4. Bilateral pleural effusions, greater on the right, unchanged. Interlobular septal thickening andgroundglass opacities related to pulmonary edema. Chest CT 10/19/2024: 1. Bilateral tree-in-bud and groundglass opacities persist but show interval improvement compared to 08/26/2024. This is typically seen with an atypical infection. 2. Interval resolution of previously identified bilateral pleural effusions. 3. Moderate upper lobe predominant centrilobular emphysematous changes. PFT's: 10/29/2023: Moderate obstruction, significant response to bronchodilators, air trapping, moderately reduced diffusion capacity Assessment/plan: Waxing and waning pulmonary nodules, previously biopsied positive for organizing pneumonia Right pleural effusion s/p thoracentesis, transudate A-fib s/p ablation Hfr/pEF Pulmonary hypertension Hx breast ca s/p B/L mastectomies COPD/asthma overlap INGA Former smoker -S/p ENB/EBUS 10/05/23. 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 Right middle lobe biopsy also with adjacent acellular material. TBNA with RML with atypical cells, RLL nondiagnostic, LN 7, 4R, 11R negative for malignancy. Pneumonia PCR, bacterial culture, fungal stain/culture, AFB stain/culture, silver stain, Aspergillus galactomannan, beta D glucan negative. Procedure complicated by pneumothorax. -Unclear etiology for organizing pneumonia. Medication list reviewed, no clear association. Autoimmune evaluation with WERO, ANCA, RF, anti-CCP, Sjogren's antibody, myositis panel, HP panel negative. Prior infectious evaluation negative. Completed MBS, negative for aspiration. -Completed steroid taper for organizing pneumonia spring 2023, follow-up imaging had improvement ofhypermetabolic areas, but then recurrence. Was restarted on prednisone for organizing PNA at the beginning of Aug as patient had worsening dyspnea and nonproductive cough. -Follow up chest imaging reviewed with patient and family, much improved. Patient's respiratory status appears improved as well. Discussed that it's difficult to determine which respiratory symptoms were attributable to her HF vs OP, but that she had still been symptomatic even after HF hospitalization. Patient remains on prednisone, will attempt to taper off given retirement side effects. Will decrease to prednisone 30mg daily x 2 weeks, then 20mg daily x 2 weeks, then 15 mg daily x 2 weeks. Can d/c atovaquone once on prednisone 15mg daily. Once on prednisone 10mg daily will continue x 4 weeks and then taper to 5mg daily x 4 weeks. Will have patient see ILD specialist for discussion of steroid sparing agents if recurs as this is patient's second course of steroids. -Agreeable for pulmonary rehab. -C/w spiriva and albuterol prn. 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 Now on auto CPAP 5-20 cm H2O. Compliance report requested and ordered for overnight pulse ox -S/p TDAP, influenza vaccine this year. Previously recommended prevnar 20, RSV. Follow up: Early May with ILD specialist Please seek immediate medical attention for any worsening or worrying new symptoms. Patient education, benefits, risks, and precautions provided. Management plan was discussed in detail and in agreement. All questions or concerns answered to satisfaction and understood. Stephanie Arana DO 2:34 PM 10/28/24 Pulmonary and Critical Care Medicine documented in this encounterSumma [id number] Instructions* Patient Instructions* Sofi Gonzalez MA - 10/28/2024 9:45 AM EDT YOUR APPOINTMENT TODAY WAS WITH THE [facility] LUNG NODULE CLINIC, COPD CLINIC, PULMONARY AND SLEEP MEDICINE OFFICE. PLEASE CALL OUR OFFICE AT [phone] IF YOU HAVE NOT RECEIVED YOUR TEST RESULTS 7 DAYS AFTER TESTING IS COMPLETED. PLEASE REMEMBER TO REQUEST REFILLS AT YOUR OFFICE VISITS. PHONE/FAX REQUESTS REQUIRE 48-72 HOURS FOR RESPONSE. A FRIENDLY REMINDER COPAYS ARE DUE AT TIME OF SERVICE. THANK YOU. Our Patients Are Important! We want to improve and you can help. After your visit we want you to feel: Listened to, Respected and have your health care explained. You may receive a survey asking you about your visit. Please complete the survey. We will use your feedback to make improvements. COVID-19 VACCINATION INFORMATION: PH. [phone] [email or web address] [facility] Central Scheduling [phone] [facility] Sleep Scheduling [phone] documented in this [facility]03-13-2025 Telephone encounter Note* Telephone Encounter - Haley Vergara - 10/27/2024 10:39 AM EDT Patient had to reschedule her stress test, now moved out to 12/05. Authorization only valid through 11/15. Can we get an updated auth for her please? [id number] Miscellaneous Notes* Telephone Encounter - Haley Vergara - 10/27/2024 10:39 AM EDT Patient had to reschedule her stress test, now moved out to 12/05. Authorization only valid through 11/15. Can we get an updated auth for her please? documented in this [facility]03-07-2025 Hospital Discharge instructions* Discharge Instructions* Parrish Chaidez DO - 10/21/2024 7:50 PM EST Call to schedule an appointment with your primary care doctor for follow up. Take the antibiotics for your UTI. Return to the ER for worsening symptoms. documented in this [facility]03-07-2025 Emergency department Note* Parrish Chaidez DO - 10/21/2024 4:39 PM EST EMERGENCY DEPARTMENT ENCOUNTER Pt Name: Rolando Peters Birthdate 1945 Date of evaluation: 10/21/2024 ED Provider: Parrish Chaidez DO CHIEF COMPLAINT Chief Complaint Patient presents with Weakness, Gen PT presents to ED for leg weakness since mid September that began after getting Flu-A. Pt states shefeel like her legs give out when she tries to walk. Pt denies falls/injury to back but reports hx of back problems. Pt also states her butt feels weak. Denies decreased sensation or loss of bowel or bladder. Pt also reports hx HF. Pt endorses persistent cough since having flu. HISTORY OF PRESENT ILLNESS (Location/Symptom, Timing/Onset, Context/Setting, Quality, Duration, Modifying Factors, Severity) Note limiting factors. I wore appropriate PPE for the entirety of this encounter. HPI Rolando Peters is a 79 y.o. who presents to the emergency department with chief complaint of generalized weakness. Patient states in September she was diagnosed with influenza. Since then has had progressively worsening weakness and feels like her legs give out on her when she is trying to walk. She denies any falls or injuries. She denies chest pain, dyspnea, fevers, vomiting, diarrhea. She was seen by her PCP today and states that her PCP was concern for sepsis due to patient's blood pressure of114/42 so they sent her to the ER for evaluation. Nursing Notes were reviewed. Limitations to history: None Outside historians: None REVIEW OF SYSTEMS Review of Systems Pertinent positives and negatives as per HPI. PAST MEDICAL HISTORY Past Medical History: Diagnosis Date Arrhythmia Arthritis Asthma Breast cancer (HCC) 1993 Right Breast(Mastectomy) Breast cancer (HCC) 2010 Left Breast(Simple Mastectomy, SLND) Chronic kidney disease COPD (chronic obstructive pulmonary disease) (HCC) Coronary artery disease Diabetes (HCC) Emphysema of lung (HCC) Within last year GERD (gastroesophageal reflux disease) High blood pressure Lung nodule -2022 Occlusion and stenosis of unspecified carotid artery Pure hypercholesterolemia Syncope and collapse 08/29/2022 SURGICAL HISTORY Past Surgical History: Procedure Laterality Date BRONCHOSCOPY CARDIAC ELECTROPHYSIOLOGY PROCEDURE N/A 05/05/2024 Performed by Walt Leigh MD at [facility] Cardiac Cath/EP Lab CAROTID ENDARTERECTOMY Right 2008 CATARACT EXTRACTION Bilateral 2006 CHEST TUBE INSERTION Right 10/05/2023 ENDOBRONCHIAL ULTRASOUND EBUS (HISTORICAL) 10/05/2023 LUNG BIOPSY MASTECTOMY Left 2010 simple/reconstruction/gingivagrapht MASTECTOMY Right 1993 reconstruction (TRAM) TOTAL ABDOMINAL HYSTERECTOMY W/ BILATERAL SALPINGOOPHORECTOMY 1998 TUBAL LIGATION 1978 CURRENT MEDICATIONS Current Discharge Medication List CONTINUE these medications which have NOT CHANGED Details albuterol (Ventolin HFA) 108 (90 Base) MCG/ACT inhaler Inhale 2 puffs every 4 hours as needed for wheezing or shortness of breath. Qty: 8 g, Refills: 11 Associated Diagnoses: Chronic obstructive pulmonary disease, unspecified COPD type (HCC) amLODIPine (Norvasc) 2.5 MG tablet Take 1 tablet (2.5 mg) by mouth daily. Qty: 30 tablet, Refills: 1 apixaban (Eliquis) 5 MG tablet Take 1 tablet (5 mg) by mouth 2 times daily. Qty: 180 tablet, Refills: 1 Associated Diagnoses: PAF (paroxysmal atrial fibrillation) ([facility]); On continuous oral anticoagulation atovaquone (Mepron) 750 MG/5ML suspension Take 10 mL (1,500 mg) by mouth daily. Qty: 600 mL, Refills: 0 Associated Diagnoses: Organizing pneumonia (CMS/HCC) (HCC) carvedilol (Coreg) 12.5 MG tablet Take 1 tablet (12.5 mg) by mouth 2 times daily (with meals). Qty: 180 tablet, Refills: 3 cholecalciferol (Vitamin D-3) 50 MCG (2000 UT) tablet Take 4,000 Units by mouth daily. Contour Next Test test strip USE ONE strip TO test TWICE DAILY ezetimibe (Zetia) 10 MG tablet Take 1 tablet (10 mg) by mouth in the morning. Qty: 90 tablet, Refills: 2 Comments: This prescription was filled on 07/01/2023. Any refills authorized will be placed on file. Associated Diagnoses: Dyslipidemia Finerenone (Kerendia) 10 MG tablet Take 1 tablet by mouth daily. fluticasone (Cutivate) 0.05 % cream Apply topically Daily as needed (itching). fluticasone (Flonase) 50 MCG/ACT nasal spray Administer 1 spray into each nostril daily. Shake gently. Before first use, prime pump. After use, clean tip and replace cap. furosemide (Lasix) 20 MG tablet Take 1 tablet (20 mg) by mouth daily. Do not start before August 30, 2024. Qty: 30 tablet, Refills: 0 Jentadueto XR 2.5-1000 MG per 24 hr tablet take 2 tablets by mouth once daily lansoprazole (Prevacid) [address] capsule 1 capsule in the morning. losartan (Cozaar) 100 MG tablet Take 1 tablet (100 mg) by mouth daily. Qty: 90 tablet, Refills: 1 Associated Diagnoses: Essential hypertension Multiple Vitamins-Minerals (MULTIPLE VITAMINS/WOMENS PO) Take by mouth daily. rosuvastatin (Crestor) 10 MG tablet daily. sertraline (Zoloft) 25 MG tablet Take 1 tablet (25 mg) by mouth daily. Qty: 30 tablet, Refills: 11 tiotropium (Spiriva Respimat) 2.5 MCG/ACT inhaler Inhale 2 puffs daily. Qty: 1 each, Refills: 11 Associated Diagnoses: Pulmonary emphysema, unspecified emphysema type (HCC) Vascepa 1 g capsule TAKE 2 CAPSULES BY MOUTH 2 TIMES DAILY Qty: 360 capsule, Refills: 3 Comments: RX XUAN:0 DISPS XUAN:0 ALLERGIES Isosulfan blue, Methylene blue, and Sulfa antibiotics FAMILY HISTORY Family History Problem Relation Name Age of Onset Ovarian cancer Mother 66 Heart attack Father Lucita (Mother) 76 High Blood Pressure Father Lucita (Mother) Macular degeneration Father Lucita (Mother) Cancer Father Lucita (Mother) Ovarian cancer Mother's Sister 45 Other ([id number]) Son neuofibromatosis, BRCA1 positive Neurofibromatosis Son High Blood Pressure Son Cancer Son hairy cell leukemia Breast cancer Cousin 42 +brca Bladder Cancer Cousin 19 Hypertension Sister Angie Kidney disease Sister Angie Hypertension Sister Mireya Sister Kidney disease Sister Mireya Sister SOCIAL HISTORY Social History Socioeconomic History Marital status: Tobacco Use Smoking status: Former Current packs/day: 0.00 Average packs/day: 1 pack/day for 30.0 years (30.0 ttl pk-yrs) Types: Cigarettes Start date: 08/17/1963 Quit date: 08/17/1993 Years since quittin.2 Smokeless tobacco: Never 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: , 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[facility], 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, 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 Vaping Use Vaping status: Never Used Substance and Sexual Activity Alcohol use: Yes Alcohol/week: 2.0 - 16.0 standard drinks of alcohol Types: 2 Glasses of wine per week Comment: occ Drug use: No Comment: caffeine use: 1 cup of coffee a day Sexual activity: Not Currently Partners: Male control/protection: Other Social Drivers of Health Food Insecurity: No Food Insecurity (01/19/2024) Hunger Vital Sign Worried About Running Out of Food in the Last Year: Never true Ran Out of Food in the Last Year: Never true Transportation Needs: No Transportation Needs (01/19/2024) PRAPARE - Transportation Lack of Transportation (Medical): No Lack of Transportation (Non-Medical): No Intimate Partner Violence: Not At Risk (08/27/2024) Humiliation, Afraid, Rape, and Kick questionnaire Fear of Current or Ex-Partner: No Emotionally Abused: No Physically Abused: No Sexually Abused: No Housing Stability: Low Risk (01/19/2024) Housing Stability Vital Sign Unable to Pay for Housing in the Last Year: No Number of Places Lived in the Last Year: 1 Unstable Housing in the Last Year: No SCREENINGS PHYSICAL EXAM ED Triage Vitals [10/21/24 1647] Temp Heart Rate Resp BP 36.6 C (97.8 F) 80 20 107/87 SpO2 Temp Source Heart Rate Source Patient Position 98 % Temporal Monitor -- BP Location FiO2 (%) -- -- Physical Exam Vitals and nursing note reviewed. Constitutional: General: She is not in acute distress. Appearance: She is well-developed. She is not ill-appearing or toxic-appearing. HENT: Head: Normocephalic and atraumatic. Nose: Nose normal. Mouth/Throat: Mouth: Mucous membranes are dry. Eyes: Extraocular Movements: Extraocular movements intact. Conjunctiva/sclera: Conjunctivae normal. Pupils: Pupils are equal, round, and reactive to light. Cardiovascular: Rate and Rhythm: Normal rate and regular rhythm. Pulses: Normal pulses. Heart sounds: Normal heart sounds. Pulmonary: Effort: Pulmonary effort is normal. No respiratory distress. Breath sounds: Normal breath sounds. Abdominal: General: There is no distension. Palpations: Abdomen is soft. Tenderness: There is no abdominal tenderness. Musculoskeletal: General: Normal range of motion. Cervical back: Normal range of motion and neck supple. Right lower leg: No edema. Left lower leg: No edema. Skin: General: Skin is warm and dry. Capillary Refill: Capillary refill takes less than 2 seconds. Neurological: General: No focal deficit present. Mental Status: She is alert and oriented to person, place, and time. Mental status is at baseline. Cranial Nerves: No cranial nerve deficit. Sensory: No sensory deficit. Motor: No weakness. DIAGNOSTIC RESULTS Procedures/EKG: EKG was reviewed by myself. [facility] RAD[facility]OLOGY (Per Emergency Physician): Interpretation per the Radiologist below, if available at the time of this note: XR chest 1 view Final Result FINDINGS AND IMPRESSION: SUPPORT DEVICES: None OSSEOUS STRUCTURES: Degenerative changes in the thoracic spine. HEART AND MEDIASTINUM: The cardiomediastinal silhouette appears unchanged from the prior exam. LUNGS AND PLEURA: Hyperinflated lungs with coarse interstitial markings likely related to chronic obstructive pulmonary disease. No consolidation, edema or sizable effusion. Report Dictated on Electronically Signed By: Deven Mendoza MD Electronically Signed Date/Time: 10/21/2024 5:26 PM EST ED BEDSIDE ULTRASOUND: Performed by ED Physician - none LABS: Labs Reviewed COMPREHENSIVE METABOLIC PANEL - Abnormal Result Value SODIUM 138 POTASSIUM 4.2 CHLORIDE 109 (*) CARBON DIOXIDE 19 (*) ANION GAP 10 UREA NITROGEN 19 CREATININE 0.89 GLUCOSE 123 (*) CALCIUM 8.1 (*) AST (SGOT) 24 ALT 22 ALKALINE PHOSPHATASE 41 ALBUMIN 2.5 (*) BILIRUBIN, TOTAL 0.5 TOTAL PROTEIN 5.2 (*) eGFR 66.5 CBC WITH AUTO DIFFERENTIAL - Abnormal Auto WBC 9.4 RBC 2.96 (*) Hemoglobin 8.3 (*) Hematocrit 26.1 (*) MCV 88.2 MCH 28.0 MCHC 31.8 RDW 16.2 (*) Platelets 243 MPV 9.4 nRBC 0.0 Neutrophils Relative 78.7 Lymphocytes Relative 11.0 (*) Monocytes Relative 8.1 Eosinophils Relative 0.9 Basophils Relative 0.1 Immature Grans % 1.2 Neutrophils Absolute 7.4 Lymphocytes Absolute 1.0 Monocytes Absolute 0.8 Eosinophils Absolute 0.1 Basophils Absolute 0.0 Immature Grans Absolute 0.1 (*) COMPLETE URINALYSIS - Abnormal Color, Urine Yellow Clarity, Urine Clear pH, Urine 5.5 Leukocytes, Urine 75 (*) Nitrite, Urine Negative Protein, Urine 200 (*) Glucose, Urine Normal Bilirubin, Urine Negative Ketones, Urine Negative Urobilinogen, Urine Normal Blood, Urine Negative RBC, Urine 0-2 WBC, Urine 6-10 (*) Squamous Epithelial, Urine 0-2 Non-Squamous Epithalial Cells, Urine 3-5 (*) Bacteria, Urine Few (*) Mucus, Urine Few Hyaline Casts, Urine 11-25 (*) SPECIFIC GRAVITY OF URINE (NUMERIC) 1.019 MAGNESIUM - Normal MAGNESIUM 1.7 Narrative: Higher values can be expected in females during menses. HIGH SENSITIVITY TROPONIN, SERIAL BASELINE - Normal Troponin HS Serial Baseline 10 COMPLETE URINALYSIS WITH REFLEX TO CULTURE Narrative: The following orders were created for panel order Urinalysis complete with reflex to Culture. Procedure Abnormality Status --------- ------ Complete Urinalysis[[id number]] Abnormal Final result Please view results for these tests on the individual orders. HIGH SENSITIVITY TROPONIN, SERIAL, SECOND TEST All other labs were within normal range or not returned as of this dictation. EMERGENCY DEPARTMENT COURSE and DIFFERENTIAL DIAGNOSIS/MDM: Vitals: Vitals: 10/21/24 1647 BP: 107/87 Pulse: 80 Resp: 20 Temp: 36.6 C (97.8 F) TempSrc: Temporal SpO2: 98% Diagnoses as of 10/21/241952 Urinary tract infection without hematuria, site unspecified The patient presented with chief complaint of weakness. The differential diagnosis associated with this patient's presentation includes UTI, renal failure,anemia. Our workup consisted of ordering/reviewing: Labs and urinalysis. Patient is in agreement with this plan. Medications cephalexin (Keflex) capsule 500 mg (has no administration in time range) sodium chloride 0.9 % bolus 500 mL (0 mL IntraVENous Stopped 10/21/241814) REVAL: 79-year-old female presenting to the ED for generalized weakness. Her vitals are stable and there is low concern for sepsis. She does not have any focal deficits on exam. Low concern for stroke with NIH of 0. Her labs are reassuring with hemoglobin consistent with her baseline and normal renal function. She did test positive for UTI will be given a course of Keflex. She was also given 500 cc bolus of IV fluids however we will hold on additional fluid resuscitation given her history of heart failure. Patient was ambulated in the ED. She was offered admission for the weakness if she felt unsafeat home but states that she would prefer to be discharged and will follow-up with her PCP. She willreturn to the ED for worsening symptoms. CRITICAL CARE TIME CONSULTS: None PROCEDURES: Unless otherwise noted below, none Procedures Patients symptoms are consistent with sepsis, severe sepsis, or septic shock (If yes use .sepsiscoremeasure): FINAL IMPRESSION 1. Urinary tract infection without hematuria, site unspecified DISPOSITION Discharge 10/21/2024 07:49:55 PM PATIENT REFERRED TO: Celia Al DO [address] [facility], [place] [address] [facility] [id number] DISCHARGE MEDICATIONS: Current Discharge Medication List START taking these medications Details cephalexin (Keflex) 500 MG capsule Take 1 capsule (500 mg) by mouth 2 times daily for 5 days. Qty: 10 capsule, Refills: 0 (Comment: Please note this report has been produced using speech recognition software and may contain errors related to that system including errors in grammar, punctuation, and spelling, as well as words and phrases that may be inappropriate. If there are any questions or concerns please feel freeto contact the dictating provider for clarification.) Parrish Chaidez DO (electronically signed) Emergency Medicine Provider Parrish Chaidez DO 10/21/241952 documented in this [facility]03-07-2025 Physician Emergency department Note* Parrish Chaidez DO - 10/21/2024 4:39 PM EST EMERGENCY DEPARTMENT ENCOUNTER Pt Name: Rolando Peters Birthdate 1945 Date of evaluation: 10/21/2024 ED Provider: Parrish Chaidez DO CHIEF COMPLAINT Chief Complaint Patient presents with Weakness, Gen PT presents to ED for leg weakness since mid September that began after getting Flu-A. Pt states shefeel like her legs give out when she tries to walk. Pt denies falls/injury to back but reports hx of back problems. Pt also states her butt feels weak. Denies decreased sensation or loss of bowel or bladder. Pt also reports hx HF. Pt endorses persistent cough since having flu. HISTORY OF PRESENT ILLNESS (Location/Symptom, Timing/Onset, Context/Setting, Quality, Duration, Modifying Factors, Severity) Note limiting factors. I wore appropriate PPE for the entirety of this encounter. HPI Rolando Peters is a 79 y.o. who presents to the emergency department with chief complaint of generalized weakness. Patient states in September she was diagnosed with influenza. Since then has had progressively worsening weakness and feels like her legs give out on her when she is trying to walk. She denies any falls or injuries. She denies chest pain, dyspnea, fevers, vomiting, diarrhea. She was seen by her PCP today and states that her PCP was concern for sepsis due to patient's blood pressure of114/42 so they sent her to the ER for evaluation. Nursing Notes were reviewed. Limitations to history: None Outside historians: None REVIEW OF SYSTEMS Review of Systems Pertinent positives and negatives as per HPI. PAST MEDICAL HISTORY Past Medical History: Diagnosis Date Arrhythmia Arthritis Asthma Breast cancer (HCC) 1993 Right Breast(Mastectomy) Breast cancer (HCC) 2010 Left Breast(Simple Mastectomy, SLND) Chronic kidney disease COPD (chronic obstructive pulmonary disease) (HCC) Coronary artery disease Diabetes (HCC) Emphysema of lung (HCC) Within last year GERD (gastroesophageal reflux disease) High blood pressure Lung nodule -2022 Occlusion and stenosis of unspecified carotid artery Pure hypercholesterolemia Syncope and collapse 08/29/2022 SURGICAL HISTORY Past Surgical History: Procedure Laterality Date BRONCHOSCOPY CARDIAC ELECTROPHYSIOLOGY PROCEDURE N/A 05/05/2024 Performed by Walt Leigh MD at [facility] Cardiac Cath/EP Lab CAROTID ENDARTERECTOMY Right 2009 CATARACT EXTRACTION Bilateral 2006 CHEST TUBE INSERTION Right 10/05/2023 ENDOBRONCHIAL ULTRASOUND EBUS (HISTORICAL) 10/05/2023 LUNG BIOPSY MASTECTOMY Left 2010 simple/reconstruction/gingivagrapht MASTECTOMY Right 1993 reconstruction (TRAM) TOTAL ABDOMINAL HYSTERECTOMY W/ BILATERAL SALPINGOOPHORECTOMY 1998 TUBAL LIGATION 1978 CURRENT MEDICATIONS Current Discharge Medication List CONTINUE these medications which have NOT CHANGED Details albuterol (Ventolin HFA) 108 (90 Base) MCG/ACT inhaler Inhale 2 puffs every 4 hours as needed for wheezing or shortness of breath. Qty: 8 g, Refills: 11 Associated Diagnoses: Chronic obstructive pulmonary disease, unspecified COPD type ([facility]) amLODIPine (Norvasc) 2.5 MG tablet Take 1 tablet (2.5 mg) by mouth daily. Qty: 30 tablet, Refills: 1 apixaban (Eliquis) 5 MG tablet Take 1 tablet (5 mg) by mouth 2 times daily. Qty: 180 tablet, Refills: 1 Associated Diagnoses: PAF (paroxysmal atrial fibrillation) ([facility]); On continuous oral anticoagulation atovaquone (Mepron) 750 MG/5ML suspension Take 10 mL (1,500 mg) by mouth daily. Qty: 600 mL, Refills: 0 Associated Diagnoses: Organizing pneumonia (CMS/HCC) ([facility]) carvedilol (Coreg) 12.5 MG tablet Take 1 tablet (12.5 mg) by mouth 2 times daily (with meals). Qty: 180 tablet, Refills: 3 cholecalciferol (Vitamin D-3) 50 MCG (2000 UT) tablet Take 4,000 Units by mouth daily. Contour Next Test test strip USE ONE strip TO test TWICE DAILY ezetimibe (Zetia) 10 MG tablet Take 1 tablet (10 mg) by mouth in the morning. Qty: 90 tablet, Refills: 2 Comments: This prescription was filled on 07/01/2023. Any refills authorized will be placed on file. Associated Diagnoses: Dyslipidemia Finerenone (Kerendia) 10 MG tablet Take 1 tablet by mouth daily. fluticasone (Cutivate) 0.05 % cream Apply topically Daily as needed (itching). fluticasone (Flonase) 50 MCG/ACT nasal spray Administer 1 spray into each nostril daily. Shake gently. Before first use, prime pump. After use, clean tip and replace cap. furosemide (Lasix) 20 MG tablet Take 1 tablet (20 mg) by mouth daily. Do not start before August 30, 2024. Qty: 30 tablet, Refills: 0 Jentadueto XR 2.5-1000 MG per 24 hr tablet take 2 tablets by mouth once daily lansoprazole (Prevacid) [address] capsule 1 capsule in the morning. losartan (Cozaar) 100 MG tablet Take 1 tablet (100 mg) by mouth daily. Qty: 90 tablet, Refills: 1 Associated Diagnoses: Essential hypertension Multiple Vitamins-Minerals (MULTIPLE VITAMINS/WOMENS PO) Take by mouth daily. rosuvastatin (Crestor) 10 MG tablet daily. sertraline (Zoloft) 25 MG tablet Take 1 tablet (25 mg) by mouth daily. Qty: 30 tablet, Refills: 11 tiotropium (Spiriva Respimat) 2.5 MCG/ACT inhaler Inhale 2 puffs daily. Qty: 1 each, Refills: 11 Associated Diagnoses: Pulmonary emphysema, unspecified emphysema type (HCC) Vascepa 1 g capsule TAKE 2 CAPSULES BY MOUTH 2 TIMES DAILY Qty: 360 capsule, Refills: 3 Comments: RX XUAN:0 DISPS XUAN:0 ALLERGIES Isosulfan blue, Methylene blue, and Sulfa antibiotics FAMILY HISTORY Family History Problem Relation Name Age of Onset Ovarian cancer Mother 66 Heart attack Father Lucita (Mother) 76 High Blood Pressure Father Lucita (Mother) Macular degeneration Father Lucita (Mother) Cancer Father Lucita (Mother) Ovarian cancer Mother's Sister 45 Other ([id number]) Son neuofibromatosis, BRCA1 positive Neurofibromatosis Son High Blood Pressure Son Cancer Son hairy cell leukemia Breast cancer Cousin 42 +brca Bladder Cancer Cousin 19 Hypertension Sister Angie Kidney disease Sister Angie Hypertension Sister Mireya Sister Kidney disease Sister Mireya Sister SOCIAL HISTORY Social History Socioeconomic History Marital status: Tobacco Use Smoking status: Former Current packs/day: 0.00 Average packs/day: 1 pack/day for 30.0 years (30.0 ttl pk-yrs) Types: Cigarettes Start date: 08/17/1963 Quit date: 08/17/1993 Years since quittin.2 Smokeless tobacco: Never 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: , 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[facility], 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, 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 Vaping Use Vaping status: Never Used Substance and Sexual Activity Alcohol use: Yes Alcohol/week: 2.0 - 16.0 standard drinks of alcohol Types: 2 Glasses of wine per week Comment: occ Drug use: No Comment: caffeine use: 1 cup of coffee a day Sexual activity: Not Currently Partners: Male control/protection: Other Social Drivers of Health Food Insecurity: No Food Insecurity (01/19/2024) Hunger Vital Sign Worried About Running Out of Food in the Last Year: Never true Ran Out of Food in the Last Year: Never true Transportation Needs: No Transportation Needs (01/19/2024) PRAPARE - Transportation Lack of Transportation (Medical): No Lack of Transportation (Non-Medical): No Intimate Partner Violence: Not At Risk (08/27/2024) Humiliation, Afraid, Rape, and Kick questionnaire Fear of Current or Ex-Partner: No Emotionally Abused: No Physically Abused: No Sexually Abused: No Housing Stability: Low Risk (01/19/2024) Housing Stability Vital Sign Unable to Pay for Housing in the Last Year: No Number of Places Lived in the Last Year: 1 Unstable Housing in the Last Year: No SCREENINGS PHYSICAL EXAM ED Triage Vitals [10/21/24 1647] Temp Heart Rate Resp BP 36.6 C (97.8 F) 80 20 107/87 SpO2 Temp Source Heart Rate Source Patient Position 98 % Temporal Monitor -- BP Location FiO2 (%) -- -- Physical Exam Vitals and nursing note reviewed. Constitutional: General: She is not in acute distress. Appearance: She is well-developed. She is not ill-appearing or toxic-appearing. HENT: Head: Normocephalic and atraumatic. Nose: Nose normal. Mouth/Throat: Mouth: Mucous membranes are dry. Eyes: Extraocular Movements: Extraocular movements intact. Conjunctiva/sclera: Conjunctivae normal. Pupils: Pupils are equal, round, and reactive to light. Cardiovascular: Rate and Rhythm: Normal rate and regular rhythm. Pulses: Normal pulses. Heart sounds: Normal heart sounds. Pulmonary: Effort: Pulmonary effort is normal. No respiratory distress. Breath sounds: Normal breath sounds. Abdominal: General: There is no distension. Palpations: Abdomen is soft. Tenderness: There is no abdominal tenderness. Musculoskeletal: General: Normal range of motion. Cervical back: Normal range of motion and neck supple. Right lower leg: No edema. Left lower leg: No edema. Skin: General: Skin is warm and dry. Capillary Refill: Capillary refill takes less than 2 seconds. Neurological: General: No focal deficit present. Mental Status: She is alert and oriented to person, place, and time. Mental status is at baseline. Cranial Nerves: No cranial nerve deficit. Sensory: No sensory deficit. Motor: No weakness. DIAGNOSTIC RESULTS Procedures/EKG: EKG was reviewed by myself. Physician EKG interpretation can be found in [facility] RADIOLOGY (Per Emergency Physician): Interpretation per the Radiologist below, if available at the time of this note: XR chest 1 view Final Result FINDINGS AND IMPRESSION: SUPPORT DEVICES: None OSSEOUS STRUCTURES: Degenerative changes in the thoracic spine. HEART AND MEDIASTINUM: The cardiomediastinal silhouette appears unchanged from the prior exam. LUNGS AND PLEURA: Hyperinflated lungs with coarse interstitial markings likely related to chronic obstructive pulmonary disease. No consolidation, edema or sizable effusion. Report Dictated on Electronically Signed By: Deven Mendoza MD Electronically Signed Date/Time: 10/21/2024 5:26 PM EST ED BEDSIDE ULTRASOUND: Performed by ED Physician - none LABS: Labs Reviewed COMPREHENSIVE METABOLIC PANEL - Abnormal Result Value SODIUM 138 POTASSIUM 4.2 CHLORIDE 109 (*) CARBON DIOXIDE 19 (*) ANION GAP 10 UREA NITROGEN 19 CREATININE 0.89 GLUCOSE 123 (*) CALCIUM 8.1 (*) AST (SGOT) 24 ALT 22 ALKALINE PHOSPHATASE 41 ALBUMIN 2.5 (*) BILIRUBIN, TOTAL 0.5 TOTAL PROTEIN 5.2 (*) eGFR 66.5 CBC WITH AUTO DIFFERENTIAL - Abnormal Auto WBC 9.4 RBC 2.96 (*) Hemoglobin 8.3 (*) Hematocrit 26.1 (*) MCV 88.2 MCH 28.0 MCHC 31.8 RDW 16.2 (*) Platelets 243 MPV 9.4 nRBC 0.0 Neutrophils Relative 78.7 Lymphocytes Relative 11.0 (*) Monocytes Relative 8.1 Eosinophils Relative 0.9 Basophils Relative 0.1 Immature Grans % 1.2 Neutrophils Absolute 7.4 Lymphocytes Absolute 1.0 Monocytes Absolute 0.8 Eosinophils Absolute 0.1 Basophils Absolute 0.0 Immature Grans Absolute 0.1 (*) COMPLETE URINALYSIS - Abnormal Color, Urine Yellow Clarity, Urine Clear pH, Urine 5.5 Leukocytes, Urine 75 (*) Nitrite, Urine Negative Protein, Urine 200 (*) Glucose, Urine Normal Bilirubin, Urine Negative Ketones, Urine Negative Urobilinogen, Urine Normal Blood, Urine Negative RBC, Urine 0-2 WBC, Urine 6-10 (*) Squamous Epithelial, Urine 0-2 Non-Squamous Epithalial Cells, Urine 3-5 (*) Bacteria, Urine Few (*) Mucus, Urine Few Hyaline Casts, Urine 11-25 (*) SPECIFIC GRAVITY OF URINE (NUMERIC) 1.019 MAGNESIUM - Normal MAGNESIUM 1.7 Narrative: Higher values can be expected in females during menses. HIGH SENSITIVITY TROPONIN, SERIAL BASELINE - Normal Troponin HS Serial Baseline 10 COMPLETE URINALYSIS WITH REFLEX TO CULTURE Narrative: The following orders were created for panel order Urinalysis complete with reflex to Culture. Procedure Abnormality Status --------- ------ Complete Urinalysis[[id number]] Abnormal Final result Please view results for these tests on the individual orders. HIGH SENSITIVITY TROPONIN, SERIAL, SECOND TEST All other labs were within normal range or not returned as of this dictation. EMERGENCY DEPARTMENT COURSE and DIFFERENTIAL DIAGNOSIS/MDM: Vitals: Vitals: 10/21/24 1647 BP: 107/87 Pulse: 80 Resp: 20 Temp: 36.6 C (97.8 F) TempSrc: Temporal SpO2: 98% Diagnoses as of 10/21/241952 Urinary tract infection without hematuria, site unspecified The patient presented with chief complaint of weakness. The differential diagnosis associated with this patient's presentation includes UTI, renal failure,anemia. Our workup consisted of ordering/reviewing: Labs and urinalysis. Patient is in agreement with this plan. Medications cephalexin (Keflex) capsule 500 mg (has no administration in time range) sodium chloride 0.9 % bolus 500 mL (0 mL IntraVENous Stopped 10/21/241814) REVAL: 79-year-old female presenting to the ED for generalized weakness. Her vitals are stable and there is low concern for sepsis. She does not have any focal deficits on exam. Low concern for stroke with NIH of 0. Her labs are reassuring with hemoglobin consistent with her baseline and normal renal function. She did test positive for UTI will be given a course of Keflex. She was also given 500 cc bolus of IV fluids however we will hold on additional fluid resuscitation given her history of heart failure. Patient was ambulated in the ED. She was offered admission for the weakness if she felt unsafeat home but states that she would prefer to be discharged and will follow-up with her PCP. She willreturn to the ED for worsening symptoms. CRITICAL CARE TIME CONSULTS: None PROCEDURES: Unless otherwise noted below, none Procedures Patients symptoms are consistent with sepsis, severe sepsis, or septic shock (If yes use .sepsiscoremeasure): FINAL IMPRESSION 1. Urinary tract infection without hematuria, site unspecified DISPOSITION Discharge 10/21/2024 07:49:55 PM PATIENT REFERRED TO: Celia Al DO [address] [address] [facility], [place] [facility] [address] DISCHARGE MEDICATIONS: Current Discharge Medication List START taking these medications Details cephalexin (Keflex) 500 MG capsule Take 1 capsule (500 mg) by mouth 2 times daily for 5 days. Qty: 10 capsule, Refills: 0 (Comment: Please note this report has been produced using speech recognition software and may contain errors related to that system including errors in grammar, punctuation, and spelling, as well as words and phrases that may be inappropriate. If there are any questions or concerns please feel freeto contact the dictating provider for clarification.) Parrish Chaidez DO (electronically signed) Emergency Medicine Provider Parrish Chaidez DO 10/21/241952 [id number] History of Present illness Narrative* Celia Al DO - 10/21/2024 3:00 PM EST Subjective Patient ID: Rolando Peters is a 79 y.o. female who presents for Fatigue (Leg weakness, low stamina.X Testing positive for influenza A 3 weeks ago. Lingering cough with congestion. ). HPI Patient reports that she has been having difficulty with weakness tiredness and having pain in her buttocks whenever she is walking short distances. She reports she just feels lousy. Recently had influenza A 3 weeks prior. Review of Systems Constitutional: Negative for activity change, appetite change, fatigue and fever. HENT: Negative for congestion. Respiratory: Positive for cough and shortness of breath. Negative for choking and chest tightness. Cardiovascular: Negative for chest pain, palpitations and leg swelling. Musculoskeletal: Negative for arthralgias, back pain and gait problem. Skin: Negative for color change and pallor. Neurological: Positive for dizziness and weakness. Negative for facial asymmetry, light-headedness and headaches. Objective BP (!) 112/46 (BP Location: Right arm, Patient Position: Sitting) Pulse (!) 47 Temp 36.3 C (97.3 F) Wt 57.1 kg (125 lb 12.8 oz) SpO2 93% BMI 19.70 kg/m BSA Body surface area is 1.64 meters squared. Physical Exam Constitutional: General: She is not in acute distress. Appearance: Normal appearance. She is not toxic-appearing. HENT: Head: Normocephalic. Right Ear: Tympanic membrane, ear canal and external ear normal. Left Ear: Tympanic membrane, ear canal and external ear normal. Eyes: Conjunctiva/sclera: Conjunctivae normal. Pupils: Pupils are equal, round, and reactive to light. Cardiovascular: Rate and Rhythm: Normal rate and regular rhythm. Pulses: Normal pulses. Heart sounds: Normal heart sounds. Pulmonary: Effort: No respiratory distress. Breath sounds: No wheezing, rhonchi or rales. Abdominal: General: Bowel sounds are normal. There is no distension. Palpations: Abdomen is soft. Tenderness: There is no abdominal tenderness. Musculoskeletal: General: No swelling or tenderness. Skin: Findings: No lesion or rash. Neurological: General: No focal deficit present. Mental Status: She is alert and oriented to person, place, and time. Mental status is at baseline. Gait: Gait normal. Psychiatric: Mood and Affect: Mood normal. Behavior: Behavior normal. Thought Content: Thought content normal. Judgment: Judgment normal. Lab on 08/02/2024 Component Date Value Ref Range Status Glucose 08/02/2024 103 (H) 74 - 99 mg/dL Final Sodium 08/02/2024 137 136 - 145 mmol/L Final Potassium 08/02/2024 4.9 3.5 - 5.3 mmol/L Final Chloride 08/02/2024 106 98 - 107 mmol/L Final Bicarbonate 08/02/2024 22 21 - 32 mmol/L Final Anion Gap 08/02/2024 14 10 - 20 mmol/L Final Urea Nitrogen 08/02/2024 15 6 - 23 mg/dL Final Creatinine 08/02/2024 1.01 0.50 - 1.05 mg/dL Final eGFR 08/02/2024 57 (L) >60 mL/min/1.73m*2 Final Calculations of estimated GFR are performed using the 2020 CKD-EPI Study Refit equation without therace variable for the IDMS-Traceable creatinine methods. https://jasn.asnjournals.org/content/early//ASN.6519738200 Calcium 08/02/2024 8.9 8.6 - 10.6 mg/dL Final Albumin 08/02/2024 4.0 3.4 - 5.0 g/dL Final Alkaline Phosphatase 08/02/2024 46 33 - 136 U/L Final Total Protein 08/02/2024 6.5 6.4 - 8.2 g/dL Final AST 08/02/2024 26 9 - 39 U/L Final Bilirubin, Total 08/02/2024 0.5 0.0 - 1.2 mg/dL Final ALT 08/02/2024 24 7 - 45 U/L Final Patients treated with Sulfasalazine may generate falsely decreased results for ALT. Thyroid Stimulating Hormone 08/02/2024 1.42 0.44 - 3.98 mIU/L Final Magnesium 08/02/2024 1.99 1.60 - 2.40 mg/dL Final Phosphorus 08/02/2024 4.8 2.5 - 4.9 mg/dL Final The performance characteristics of phosphorus testing in heparinized plasma have been validated by the individual laboratory site where testing is performed. Testing on heparinized plasma is not approved by the FDA; however, such approval is not necessary. Vitamin B12 08/02/2024 207 (L) 211 - 911 pg/mL Final Folate, Serum 08/02/2024 23.5 >5.0 ng/mL Final Methylmalonic Acid, S 08/02/2024 0.25 0.00 - 0.40 umol/L Final INTERPRETIVE INFORMATION: MMA Serum/Plasma, Vitamin B12 Status This test was developed and its performance characteristics determined by [facility]. It has not been cleared or approved by the US Food and Drug Administration. This test was performed in a CLIA certified laboratory and is intended for clinical purposes. Performed By: [facility] [address] [place] [address] Needle Punch Operator: Rosalee Upton MD, PhD CLIA Number: [id number] Iron 08/02/2024 45 35 - 150 ug/dL Final UIBC 08/02/2024 354 110 - 370 ug/dL Final TIBC 08/02/2024 399 240 - 445 ug/dL Final % Saturation 08/02/2024 11 (L) 25 - 45 % Final Ferritin 08/02/2024 71 8 - 150 ng/mL Final Lab on 06/13/2024 Component Date Value Ref Range Status Albumin, Urine Random 06/13/2024 1,587.3 Not established mg/L Final Creatinine, Urine Random 06/13/2024 67.3 20.0 - 320.0 mg/dL Final Albumin/Creatinine Ratio 06/13/2024 2,358.5 (H) <30.0 ug/mg Creat Final Glucose 06/13/2024 137 (H) 74 - 99 mg/dL Final Sodium 06/13/2024 137 136 - 145 mmol/L Final Potassium 06/13/2024 4.6 3.5 - 5.3 mmol/L Final Chloride 06/13/2024 103 98 - 107 mmol/L Final Bicarbonate 06/13/2024 22 21 - 32 mmol/L Final Anion Gap 06/13/2024 17 10 - 20 mmol/L Final Urea Nitrogen 06/13/2024 16 6 - 23 mg/dL Final Creatinine 06/13/2024 1.03 0.50 - 1.05 mg/dL Final eGFR 06/13/2024 56 (L) >60 mL/min/1.73m*2 Final Calculations of estimated GFR are performed using the 2020 CKD-EPI Study Refit equation without therace variable for the IDMS-Traceable creatinine methods. https://jasn.asnjournals.org/content/early//ASN.5971723067 Calcium 06/13/2024 8.7 8.6 - 10.6 mg/dL Final Albumin 06/13/2024 4.0 3.4 - 5.0 g/dL Final Alkaline Phosphatase 06/13/2024 49 33 - 136 U/L Final Total Protein 06/13/2024 6.2 (L) 6.4 - 8.2 g/dL Final AST 06/13/2024 23 9 - 39 U/L Final Bilirubin, Total 06/13/2024 0.5 0.0 - 1.2 mg/dL Final ALT 06/13/2024 36 7 - 45 U/L Final Patients treated with Sulfasalazine may generate falsely decreased results for ALT. Hemoglobin A1C 06/13/2024 5.5 See comment % Final Estimated Average Glucose 06/13/2024 111 Not Established mg/dL Final WBC 06/13/2024 5.3 4.4 - 11.3 x10*3/uL Final nRBC 06/13/2024 0.0 0.0 - 0.0 /100 WBCs Final RBC 06/13/2024 3.35 (L) 4.00 - 5.20 x10*6/uL Final Hemoglobin 06/13/2024 9.7 (L) 12.0 - 16.0 g/dL Final Hematocrit 06/13/2024 30.8 (L) 36.0 - 46.0 % Final MCV 06/13/2024 92 80 - 100 fL Final MCH 06/13/2024 29.0 26.0 - 34.0 pg Final MCHC 06/13/2024 31.5 (L) 32.0 - 36.0 g/dL Final RDW 06/13/2024 13.0 11.5 - 14.5 % Final Platelets 06/13/2024 204 150 - 450 x10*3/uL Final Neutrophils % 06/13/2024 74.1 40.0 - 80.0 % Final Immature Granulocytes %, Automated 06/13/2024 0.4 0.0 - 0.9 % Final Immature Granulocyte Count (IG) includes promyelocytes, myelocytes and metamyelocytes but does not include bands. Percent differential counts (%) should be interpreted in the context of the absolute cell counts (cells/UL). Lymphocytes % 06/13/2024 14.1 13.0 - 44.0 % Final Monocytes % 06/13/2024 7.7 2.0 - 10.0 % Final Eosinophils % 06/13/2024 2.4 0.0 - 6.0 % Final Basophils % 06/13/2024 1.3 0.0 - 2.0 % Final Neutrophils Absolute 06/13/2024 3.93 1.60 - 5.50 x10*3/uL Final Percent differential counts (%) should be interpreted in the context of the absolute cell counts (cells/uL). Immature Granulocytes Absolute, Au* 06/13/2024 0.02 0.00 - 0.50 x10*3/uL Final Lymphocytes Absolute 06/13/2024 0.75 (L) 0.80 - 3.00 x10*3/uL Final Monocytes Absolute 06/13/2024 0.41 0.05 - 0.80 x10*3/uL Final Eosinophils Absolute 06/13/2024 0.13 0.00 - 0.40 x10*3/uL Final Basophils Absolute 06/13/2024 0.07 0.00 - 0.10 x10*3/uL Final WERO 06/13/2024 Negative Negative Final The Antinuclear Antibody (WERO) test was performed using indirect immunofluorescence assay with HEp-2 cells slide. Rheumatoid Factor 06/13/2024 <10 0 - 15 IU/mL Final Citrulline Antibody, IgG 06/13/2024 <1 <3 U/mL Final NEGATIVE < 3 U/ML POSITIVE >=3 U/ML ANCA IFA Titer 06/13/2024 <1:20 <1:20 Final ANCA IFA Pattern 06/13/2024 None Detected None Detected Final INTERPRETIVE INFORMATION: ANCA IFA Pattern Neutrophil Cytoplasmic Antibodies (C-ANCA = granular cytoplasmic staining, P-ANCA = perinuclear staining) are found in the serum of over 90 percent of patients with certain necrotizing systemic vasculitides, and usually in less than 5 percent of patients with collagen vascular disease or arthritis. Performed By: [facility] [address] [place] [id number] Needle Punch Operator: Rosalee Upton MD, PhD CLIA Number: [id number] SSA-52 (Ro52) (YOCASTA) Antibody, IgG 06/13/2024 2 0 - 40 AU/mL Final INTERPRETIVE INFORMATION: SSA-52 (Ro52) (YOCASTA) Antibody, IgG 29 AU/mL or Less ............. Negative 30 - 40 AU/mL ................ Equivocal 41 AU/mL or Greater .......... Positive SSA-52 (Ro52) and/or SSA-60 (Ro60) antibodies are associated with a diagnosis of Sjogren syndrome, systemic lupus erythematosus (SLE), and systemic sclerosis. SSA-52 antibody overlaps significantly with the major SSc-related antibodies. SSA-52 (Ro52) antibody occurs frequently in patients with inflammatory myopathies, often in the presence of interstitial lung disease. SSA-60 (Ro60) (YOCASTA) Antibody, IgG 06/13/2024 0 0 - 40 AU/mL Final REFERENCE INTERVAL: SSA-60 (Ro60) (YOCASTA) Antibody, IgG 29 AU/mL or Less ............. Negative 30 - 40 AU/mL ................ Equivocal 41 AU/mL or Greater .......... Positive Shannon/CUFF TURNER MACHINE OPERATOR (YOCASTA) Ab, IgG 06/13/2024 2 0 - 19 Units Final INTERPRETIVE INFORMATION: Shannon/CUFF TURNER MACHINE OPERATOR (YOCASTA) Antibody, IgG 19 Units or Less ............. Negative 20 to 39 Units ............... Weak Positive 40 to 80 Units ............... Moderate Positive 81 Units or greater .......... Strong Positive Shannon/CUFF TURNER MACHINE OPERATOR antibodies are frequently seen in patients with mixed connective tissue disease (MCTD) and are also associated with other systemic autoimmune rheumatic diseases (SARDs) such as systemic lupus erythematosus (SLE), systemic sclerosis, and myositis. Antibodies targeting the Shannon/CUFF TURNER MACHINE OPERATOR antigenic complex also recognize Shannon antigens, therefore, the Shannon antibody response must be considered when interpreting these results. Neelima-1 (Histidyl-tRNA Synthetase) Ab* 06/13/2024 1 0 - 40 AU/mL Final INTERPRETIVE INFORMATION: Neelima-1 Antibody, IgG 29 AU/mL or less.........Negative 30-40 AU/mL..............Equivocal 41 AU/mL or greater......Positive Presence of Neelima-1 (antihistidyl transfer RNA [t-RNA] synthetase) antibody is associated with polymyositis and may also be seen in patients with dermatomyositis. Neelima-1 antibody is associated with pulmonary involvement (interstitial lung disease), Raynaud phenomenon, arthritis, and motorboat mechanic helper's hands (implicated in antisynthetase syndrome). PL-12 (alanyl-tRNA synthetase) Ant* 06/13/[address]-7 (threonyl-tRNA synthetase) An* 06/13/2024 Negative Negative Final EJ (glycyl-tRNA synthetase) Antibo* 06/13/2024 Negative Negative Final OJ (isoleucyl-tRNA synthetase) Ant* 06/13/2024 Negative Negative Final SRP (Signal Recognition Particle) * 06/13/2024 Negative Negative Final Ku Antibody 06/13/2024 Negative Negative Final PM/Scl 100 Antibody, IgG 06/13/2024 Negative Negative Final INTERPRETIVE INFORMATION: PM/Scl-100 Antibody, IgG by Immunoblot The presence of PM/Scl-100 IgG antibody along with a positive WERO IFA nucleolar pattern is associated with connective tissue diseases such as polymyositis (PM), dermatomyositis (DM), systemic sclerosis (SSc), and polymyositis/systemic sclerosis overlap syndrome. The clinical relevance of PM/Scl-100 IgG antibody with a negative WERO IFA nucleolar pattern is unknown. PM/Scl-100 is the main target epitope of the PM/Scl complex, although antibodies to other targets not detected by this assay may occur. This test was developed and its performance characteristics determined by [facility]. It has not been cleared or approved by the [place] Food and Drug Administration. This test was performed in a CLIA certified laboratory and is intended for clinical purposes. Fibrillarin (U3 CUFF TURNER MACHINE OPERATOR) Ab, IgG 06/13/2024 Negative Negative Final Comment: Interpretive Information: Fibrillarin (U3 CUFF TURNER MACHINE OPERATOR) Antibody, IgG The presence of fibrillarin (U3-CUFF TURNER MACHINE OPERATOR) IgG antibodies in association with an WERO IFA nucleolar pattern is suggestive of systemic sclerosis (SSc). In SSc, these antibodies are associated with distinct clinical features, such as younger age at disease onset, frequent internal organ involvement (pulmonary hypertension, myositis and renal disease). Fibrillarin antibodies are detected more frequently in patients with SSc compared to other ethnic groups. Strong correlation with WERO IFA results is recommended. In a multi-ethnic cohort of SSc patients (n=98), U3-CUFF TURNER MACHINE OPERATOR antibodies detected by immunoblot had an agreement of 98.9 percent with the gold standard immunoprecipitation (IP) assay. Approximately 71 percent (5/7) of the borderline U3-CUFF TURNER MACHINE OPERATOR results with WERO nucleolar pattern in this cohort were IP negative. This test was developed and its performance characteristics determined by [facility]. It has not been cleared or approved by the US Food and Drug Administration. This test was performed in a CLIA certified laboratory and is intended for clinical purposes. Performed By: [facility] [address] [place] [id number] Needle Punch Operator: Rosalee Upton MD, PhD CLIA Number: [id number] Mi-2 (nuclear helicase protein) An* 06/13/2024 Negative Negative Final P155/140 Antibody 06/13/2024 Negative Negative Final TIF-1 gamma (155 kDa) Ab 06/13/2024 Negative Negative Final SAE1 (SUMO activating enzyme) Ab 06/13/2024 Negative Negative Final MDA5 (CADM-140) Ab 06/13/2024 Negative Negative Final NXP2 (Nuclear matrix protein-2) Ab 06/13/2024 Negative Negative Final Myositis Panel Interpretive Data 06/13/2024 See Note Final Comment: INTERPRETIVE INFORMATION: Extended Myositis Panel If present, myositis-specific antibodies (MSA) are specific for myositis, and may be useful in establishing diagnosis as well as prognosis. MSAs are generally regarded as mutually exclusive with rare exceptions; the occurrence of two or more MSAs should be carefully evaluated in the context of patient's clinical presentation. Myositis-associated antibodies (MAA) may be found in patients with CTD including overlap syndromes, and are generally not specific for myositis. The following table will help in identifying the association of any antibodies found as either MSAs or Willa. Antibody Specificity . . . . . . . . . . . . MSA . . . . MAA SSA 52 (Ro) (YOCASTA) Antibody IgG . . . . . . . . . . . . . X SSA 60 (Ro) (YOCASTA) Antibody IgG . . . . . . . . . . . . . X Shannon/CUFF TURNER MACHINE OPERATOR (YOCASTA) Ab, IgG . . . . . . . . . . . . . . . . X Neelima-1 (histidyl-tRNA synthetase) Ab, IgG . . X PL-12 (alanyl-tRNA synthetase) Antibody . . X PL-7 (threonyl-tRNA synthetase) Antibody . . X EJ (glycyl-tRNA synthetase) Antibody . . . . X OJ (isoleucyl-tRNA synthetase) Antibody . . X SRP (Signal Recognition Particle) Ab . . . . X Ku Antibody . . . . . . . . . . . . . . . . . . . . . . X PM/SCL 100 Antibody, IgG . . . . . . . . . . . . . . . . X Fibrillarin (U3 CUFF TURNER MACHINE OPERATOR) Ab, IgG . . . . . . . . . . . . . . X Mi-2 (nuclear helicase protein) Antibody . . X P155/140 Antibody . . . . . . . . . . . . . X TIF-1 gamma (155 kDa) Ab . . . . . . . . . . X SAE1 (SUMO activating enzyme) Ab . . . . . . X MDA5 (CADM-140) Ab . . . . . . . . . . . . X NXP2 (Nuclear matrix proten-2)Ab . . . . . . X This test was developed and its performance characteristics determined by [facility]. It has not been cleared or approved by the US Food and Drug Administration. This test was performed in a CLIA certified laboratory and is intended for clinical purposes. Aspergillus fumigatus #1 Ab, Preci* 06/13/2024 None Detected None Detected Final Aspergillus fumigatus #6 Ab, Preci* 06/13/2024 None Detected None Detected Final Aureobasidium pullulans Ab, Precip* 06/13/2024 None Detected None Detected Final [place] Serum Ab, Precipitin 06/13/2024 None Detected None Detected Final Micropolyspora Faeni Ab, Precipitin 06/13/2024 None Detected None Detected Final Testing includes antibodies directed at Aureobasidium pullulans, Aspergillus fumigatus #1, Aspergillus fumigatus #6, Micropolyspora faeni, and [place] Serum. Performed By: [facility] [address] [place] [id number] Needle Punch Operator: Rosalee Upton MD, PhD CLIA Number: [id number] Anti-SSA 06/13/2024 <0.2 <1.0 AI Final < 1.0 = NEGATIVE >=1.0 = POSITIVE Anti-SSB 06/13/2024 <0.2 <1.0 AI Final < 1.0 = NEGATIVE >=1.0 = POSITIVE Lab on 05/02/2024 Component Date Value Ref Range Status Glucose 05/02/2024 117 (H) 74 - 99 mg/dL Final Sodium 05/02/2024 139 136 - 145 mmol/L Final Potassium 05/02/2024 4.4 3.5 - 5.3 mmol/L Final Chloride 05/02/2024 105 98 - 107 mmol/L Final Bicarbonate 05/02/2024 24 21 - 32 mmol/L Final Anion Gap 05/02/2024 14 10 - 20 mmol/L Final Urea Nitrogen 05/02/2024 20 6 - 23 mg/dL Final Creatinine 05/02/2024 1.13 (H) 0.50 - 1.05 mg/dL Final eGFR 05/02/2024 50 (L) >60 mL/min/1.73m*2 Final Calculations of estimated GFR are performed using the 2020 CKD-EPI Study Refit equation without therace variable for the IDMS-Traceable creatinine methods. https://jasn.asnjournals.org/content/early//ASN.2330415387 Calcium 05/02/2024 8.8 8.6 - 10.6 mg/dL Final Phosphorus 05/02/2024 4.2 2.5 - 4.9 mg/dL Final The performance characteristics of phosphorus testing in heparinized plasma have been validated by the individual laboratory site where testing is performed. Testing on heparinized plasma is not approved by the FDA; however, such approval is not necessary. Albumin 05/02/2024 3.8 3.4 - 5.0 g/dL Final Lab on 04/19/2024 Component Date Value Ref Range Status Glucose 04/19/2024 91 74 - 99 mg/dL Final Sodium 04/19/2024 137 136 - 145 mmol/L Final Potassium 04/19/2024 4.9 3.5 - 5.3 mmol/L Final Chloride 04/19/2024 104 98 - 107 mmol/L Final Bicarbonate 04/19/2024 22 21 - 32 mmol/L Final Anion Gap 04/19/2024 16 10 - 20 mmol/L Final Urea Nitrogen 04/19/2024 14 6 - 23 mg/dL Final Creatinine 04/19/2024 1.08 (H) 0.50 - 1.05 mg/dL Final eGFR 04/19/2024 53 (L) >60 mL/min/1.73m*2 Final Calculations of estimated GFR are performed using the 2020 CKD-EPI Study Refit equation without therace variable for the IDMS-Traceable creatinine methods. https://jasn.asnjournals.org/content/early//ASN.4803812304 Calcium 04/19/2024 8.7 8.6 - 10.6 mg/dL Final Albumin 04/19/2024 3.9 3.4 - 5.0 g/dL Final Alkaline Phosphatase 04/19/2024 53 33 - 136 U/L Final Total Protein 04/19/2024 6.2 (L) 6.4 - 8.2 g/dL Final AST 04/19/2024 33 9 - 39 U/L Final Bilirubin, Total 04/19/2024 0.4 0.0 - 1.2 mg/dL Final ALT 04/19/2024 48 (H) 7 - 45 U/L Final Patients treated with Sulfasalazine may generate falsely decreased results for ALT. WBC 04/19/2024 7.0 4.4 - 11.3 x10*3/uL Final nRBC 04/19/2024 0.0 0.0 - 0.0 /100 WBCs Final RBC 04/19/2024 3.12 (L) 4.00 - 5.20 x10*6/uL Final Hemoglobin 04/19/2024 9.4 (L) 12.0 - 16.0 g/dL Final Hematocrit 04/19/2024 31.6 (L) 36.0 - 46.0 % Final MCV 04/19/2024 101 (H) 80 - 100 fL Final MCH 04/19/2024 30.1 26.0 - 34.0 pg Final MCHC 04/19/2024 29.7 (L) 32.0 - 36.0 g/dL Final RDW 04/19/2024 13.6 11.5 - 14.5 % Final Platelets 04/19/2024 241 150 - 450 x10*3/uL Final Lab on 03/31/2024 Component Date Value Ref Range Status Glucose 03/31/2024 148 (H) 74 - 99 mg/dL Final Sodium 03/31/2024 137 136 - 145 mmol/L Final Potassium 03/31/2024 4.8 3.5 - 5.3 mmol/L Final Chloride 03/31/2024 106 98 - 107 mmol/L Final Bicarbonate 03/31/2024 20 (L) 21 - 32 mmol/L Final Anion Gap 03/31/2024 16 10 - 20 mmol/L Final Urea Nitrogen 03/31/2024 20 6 - 23 mg/dL Final Creatinine 03/31/2024 1.37 (H) 0.50 - 1.05 mg/dL Final eGFR 03/31/2024 40 (L) >60 mL/min/1.73m*2 Final Calculations of estimated GFR are performed using the 2020 CKD-EPI Study Refit equation without therace variable for the IDMS-Traceable creatinine methods. https://jasn.asnjournals.org/content///ASN.1058328340 Calcium 03/31/2024 9.0 8.6 - 10.6 mg/dL Final Albumin 03/31/2024 3.6 3.4 - 5.0 g/dL Final Alkaline Phosphatase 03/31/2024 44 33 - 136 U/L Final Total Protein 03/31/2024 5.6 (L) 6.4 - 8.2 g/dL Final AST 03/31/2024 21 9 - 39 U/L Final Bilirubin, Total 03/31/2024 0.3 0.0 - 1.2 mg/dL Final ALT 03/31/2024 26 7 - 45 U/L Final Patients treated with Sulfasalazine may generate falsely decreased results for ALT. Lab on 03/10/2024 Component Date Value Ref Range Status Glucose 03/10/2024 90 74 - 99 mg/dL Final Sodium 03/10/2024 139 136 - 145 mmol/L Final Potassium 03/10/2024 4.5 3.5 - 5.3 mmol/L Final Chloride 03/10/2024 102 98 - 107 mmol/L Final Bicarbonate 03/10/2024 23 21 - 32 mmol/L Final Anion Gap 03/10/2024 19 10 - 20 mmol/L Final Urea Nitrogen 03/10/2024 28 (H) 6 - 23 mg/dL Final Creatinine 03/10/2024 1.27 (H) 0.50 - 1.05 mg/dL Final eGFR 03/10/2024 43 (L) >60 mL/min/1.73m*2 Final Calculations of estimated GFR are performed using the 2020 CKD-EPI Study Refit equation without therace variable for the IDMS-Traceable creatinine methods. https://jasn.asnjournals.org/content/early//ASN.3918864793 Calcium 03/10/2024 9.3 8.6 - 10.6 mg/dL Final Albumin 03/10/2024 3.9 3.4 - 5.0 g/dL Final Alkaline Phosphatase 03/10/2024 68 33 - 136 U/L Final Total Protein 03/10/2024 6.0 (L) 6.4 - 8.2 g/dL Final AST 03/10/2024 35 9 - 39 U/L Final Bilirubin, Total 03/10/2024 0.4 0.0 - 1.2 mg/dL Final ALT 03/10/2024 198 (H) 7 - 45 U/L Final Patients treated with Sulfasalazine may generate falsely decreased results for ALT. Lab on 03/07/2024 Component Date Value Ref Range Status Glucose 03/07/2024 135 (H) 74 - 99 mg/dL Final Sodium 03/07/2024 136 136 - 145 mmol/L Final Potassium 03/07/2024 4.8 3.5 - 5.3 mmol/L Final Chloride 03/07/2024 102 98 - 107 mmol/L Final Bicarbonate 03/07/2024 24 21 - 32 mmol/L Final Anion Gap 03/07/2024 15 10 - 20 mmol/L Final Urea Nitrogen 03/07/2024 28 (H) 6 - 23 mg/dL Final Creatinine 03/07/2024 1.24 (H) 0.50 - 1.05 mg/dL Final eGFR 03/07/2024 45 (L) >60 mL/min/1.73m*2 Final Calculations of estimated GFR are performed using the 2020 CKD-EPI Study Refit equation without therace variable for the IDMS-Traceable creatinine methods. https://jasn.asnjournals.org/content/early//ASN.7591237642 Calcium 03/07/2024 9.3 8.6 - 10.6 mg/dL Final Albumin 03/07/2024 3.6 3.4 - 5.0 g/dL Final Alkaline Phosphatase 03/07/2024 74 33 - 136 U/L Final Total Protein 03/07/2024 5.7 (L) 6.4 - 8.2 g/dL Final AST 03/07/2024 28 9 - 39 U/L Final Bilirubin, Total 03/07/2024 0.5 0.0 - 1.2 mg/dL Final ALT 03/07/2024 389 (H) 7 - 45 U/L Final Patients treated with Sulfasalazine may generate falsely decreased results for ALT. Albumin, Urine Random 03/07/2024 692.9 Not established mg/L Final Creatinine, Urine Random 03/07/2024 49.1 20.0 - 320.0 mg/dL Final Albumin/Creatinine Ratio 03/07/2024 1,411.2 (H) <30.0 ug/mg Creat Final Total Protein 03/07/2024 5.7 (L) 6.4 - 8.2 g/dL Final Albumin 03/07/2024 3.4 3.4 - 5.0 g/dL Final Alpha 1 Globulin 03/07/2024 0.3 0.2 - 0.6 g/dL Final Alpha 2 Globulin 03/07/2024 0.8 0.4 - 1.1 g/dL Final Beta Globulin 03/07/2024 0.6 0.5 - 1.2 g/dL Final Gamma 03/07/2024 0.6 0.5 - 1.4 g/dL Final Protein Electrophoresis Comment 03/07/2024 Normal. Final Immunofixation Comment 03/07/2024 No monoclonal protein detected by immunofixation. Final Path Review - Serum Protein Electr* 03/07/2024 Reviewed and approved by AGUSTIN STERLING on 03/09/24 at 8:24 PM. Final Path Review - Serum Immunofixation 03/07/2024 Reviewed and approved by AGUSTIN STERLING on 03/09/24 at8:24 PM. Final Total Protein, Urine Random 03/07/2024 99 (H) 5 - 25 mg/dL Final Albumin % 03/07/2024 84.5 % Final Alpha 1 Globulin % 03/07/2024 1.9 % Final Alpha 2 Globulin % 03/07/2024 3.6 % Final Beta Globulin % 03/07/2024 5.6 % Final Gamma Globulin % 03/07/2024 4.4 % Final Urine Electrophoresis Comment 03/07/2024 Marked proteinuria. No monoclonal protein detected. Final Path Review-Urine Protein Electrop* 03/07/2024 Reviewed and approved by AGUSTIN STERLING on 03/09/24 at 7:44 PM. Final Phosphorus 03/07/2024 4.1 2.5 - 4.9 mg/dL Final The performance characteristics of phosphorus testing in heparinized plasma have been validated by the individual laboratory site where testing is performed. Testing on heparinized plasma is not approved by the FDA; however, such approval is not necessary. Lab on 02/01/2024 Component Date Value Ref Range Status BNP 02/01/2024 700 (H) 0 - 99 pg/mL Final Glucose 02/01/2024 112 (H) 74 - 99 mg/dL Final Sodium 02/01/2024 138 136 - 145 mmol/L Final Potassium 02/01/2024 4.9 3.5 - 5.3 mmol/L Final Chloride 02/01/2024 100 98 - 107 mmol/L Final Bicarbonate 02/01/2024 21 21 - 32 mmol/L Final Anion Gap 02/01/2024 22 (H) 10 - 20 mmol/L Final Urea Nitrogen 02/01/2024 15 6 - 23 mg/dL Final Creatinine 02/01/2024 0.95 0.50 - 1.05 mg/dL Final eGFR 02/01/2024 61 >60 mL/min/1.73m*2 Final Calculations of estimated GFR are performed using the 2020 CKD-EPI Study Refit equation without therace variable for the IDMS-Traceable creatinine methods. https://jasn.asnjournals.org/content/early//ASN.0005090848 Calcium 02/01/2024 9.4 8.6 - 10.6 mg/dL Final Albumin 02/01/2024 3.6 3.4 - 5.0 g/dL Final Alkaline Phosphatase 02/01/2024 47 33 - 136 U/L Final Total Protein 02/01/2024 5.8 (L) 6.4 - 8.2 g/dL Final AST 02/01/2024 13 9 - 39 U/L Final Bilirubin, Total 02/01/2024 0.7 0.0 - 1.2 mg/dL Final ALT 02/01/2024 24 7 - 45 U/L Final Patients treated with Sulfasalazine may generate falsely decreased results for ALT. Lab on 01/27/2024 Component Date Value Ref Range Status Glucose 01/27/2024 179 (H) 74 - 99 mg/dL Final Sodium 01/27/2024 133 (L) 136 - 145 mmol/L Final Potassium 01/27/2024 4.8 3.5 - 5.3 mmol/L Final Chloride 01/27/2024 98 98 - 107 mmol/L Final Bicarbonate 01/27/2024 23 21 - 32 mmol/L Final Anion Gap 01/27/2024 17 10 - 20 mmol/L Final Urea Nitrogen 01/27/2024 19 6 - 23 mg/dL Final Creatinine 01/27/2024 0.89 0.50 - 1.05 mg/dL Final eGFR 01/27/2024 66 >60 mL/min/1.73m*2 Final Calculations of estimated GFR are performed using the 2020 CKD-EPI Study Refit equation without therace variable for the IDMS-Traceable creatinine methods. https://jasn.asnjournals.org/content///ASN.6917464153 Calcium 01/27/2024 9.0 8.6 - 10.6 mg/dL Final Phosphorus 01/27/2024 4.2 2.5 - 4.9 mg/dL Final The performance characteristics of phosphorus testing in heparinized plasma have been validated by the individual laboratory site where testing is performed. Testing on heparinized plasma is not approved by the FDA; however, such approval is not necessary. Albumin 01/27/2024 3.6 3.4 - 5.0 g/dL Final Total Protein, Urine Random 01/27/2024 299 (H) 5 - 24 mg/dL Final Creatinine, Urine Random 01/27/2024 80.9 20.0 - 320.0 mg/dL Final T. Protein/Creatinine Ratio 01/27/2024 3.70 (H) 0.00 - 0.17 mg/mg Creat Final WBC 01/27/2024 12.8 (H) 4.4 - 11.3 x10*3/uL Final nRBC 01/27/2024 0.0 0.0 - 0.0 /100 WBCs Final RBC 01/27/2024 3.33 (L) 4.00 - 5.20 x10*6/uL Final Hemoglobin 01/27/2024 10.3 (L) 12.0 - 16.0 g/dL Final Hematocrit 01/27/2024 32.9 (L) 36.0 - 46.0 % Final MCV 01/27/2024 99 80 - 100 fL Final MCH 01/27/2024 30.9 26.0 - 34.0 pg Final MCHC 01/27/2024 31.3 (L) 32.0 - 36.0 g/dL Final RDW 01/27/2024 14.8 (H) 11.5 - 14.5 % Final Platelets 01/27/2024 334 150 - 450 x10*3/uL Final Neutrophils % 01/27/2024 86.3 40.0 - 80.0 % Final Immature Granulocytes %, Automated 01/27/2024 1.3 (H) 0.0 - 0.9 % Final Immature Granulocyte Count (IG) includes promyelocytes, myelocytes and metamyelocytes but does not include bands. Percent differential counts (%) should be interpreted in the context of the absolute cell counts (cells/UL). Lymphocytes % 01/27/2024 4.0 13.0 - 44.0 % Final Monocytes % 01/27/2024 7.6 2.0 - 10.0 % Final Eosinophils % 01/27/2024 0.4 0.0 - 6.0 % Final Basophils % 01/27/2024 0.4 0.0 - 2.0 % Final Neutrophils Absolute 01/27/2024 11.07 (H) 1.60 - 5.50 x10*3/uL Final Percent differential counts (%) should be interpreted in the context of the absolute cell counts (cells/uL). Immature Granulocytes Absolute, Au* 01/27/2024 0.17 0.00 - 0.50 x10*3/uL Final Lymphocytes Absolute 01/27/2024 0.51 (L) 0.80 - 3.00 x10*3/uL Final Monocytes Absolute 01/27/2024 0.98 (H) 0.05 - 0.80 x10*3/uL Final Eosinophils Absolute 01/27/2024 0.05 0.00 - 0.40 x10*3/uL Final Basophils Absolute 01/27/2024 0.05 0.00 - 0.10 x10*3/uL Final Lab on 01/08/2024 Component Date Value Ref Range Status Hemoglobin A1C 01/08/2024 7.7 (H) see below % Final Estimated Average Glucose 01/08/2024 174 Not Established mg/dL Final There may be more visits with results that are not included. Current Outpatient Medications on File Prior to Visit Medication Sig Dispense Refill albuterol 90 mcg/actuation inhaler Inhale 2 puffs every 4 hours if needed. amLODIPine (Norvasc) 2.5 mg tablet Take 1 tablet (2.5 mg) by mouth early in the morning.. apixaban (Eliquis) 5 mg tablet Take 1 tablet (5 mg) by mouth twice a day. blood sugar diagnostic (Contour Next Test Strips) strip 1 each 2 times a day. 200 strip 1 carvedilol (Coreg) 25 mg tablet Take 0.5 tablets (12.5 mg) by mouth 2 times daily (morning and lateafternoon). cholecalciferol (Vitamin D-3) 50 MCG (2000 UT) tablet Take 2 tablets (4,000 Units) by mouth once daily. clindamycin (Cleocin T) 1 % lotion twice a day. Apply sparingly and massage in cyanocobalamin (Vitamin B-12) 1,000 mcg tablet Take 1 tablet (1,000 mcg) by mouth once daily. ezetimibe (Zetia) 10 mg tablet Take 1 tablet (10 mg) by mouth once daily. finerenone (Kerendia) 10 mg tablet tablet Take 1 tablet (10 mg) by mouth once daily. 90 tablet 3 fluocinonide (Lidex) 0.05 % external solution 1 (one) time each day. Apply to affected areas furosemide (Lasix) 20 mg tablet Take 1 tablet (20 mg) by mouth once daily. guaiFENesin (Mucinex) 600 mg 12 hr tablet Take 2 tablets (1,200 mg) by mouth 2 times a day. Do not crush, chew, or split. icosapent ethyL (Vascepa) 1 gram capsule Take 2 capsules (2 g) by mouth twice a day. lansoprazole (Prevacid) [address] capsule TAKE 1 CAPSULE BY MOUTH ONCE DAILY. 90 capsule 3 linagliptin-metformin (Jentadueto XR) 2.5-1,000 mg tablet, IR - ER, biphasic 24hr Take 2 tablets bymouth once daily. 180 tablet 3 losartan (Cozaar) 100 mg tablet TAKE 1 TABLET BY MOUTH ONCE DAILY. 90 tablet 3 multivit,calc,mins/iron/folic (ONE-A-DAY WOMENS FORMULA ORAL) Take 1 tablet by mouth once daily. rosuvastatin (Crestor) 10 mg tablet TAKE 1 TABLET BY MOUTH ONCE DAILY. 90 tablet 3 sertraline (Zoloft) 25 mg tablet Take 1 tablet (25 mg) by mouth once daily. tiotropium (Spiriva Respimat) 2.5 mcg/actuation inhaler Inhale 2 puffs once daily. 12 g 3 [] atovaquone (Mepron) 750 mg/5 mL suspension Take 10 mL (1,500 mg) by mouth once daily. [] predniSONE (Deltasone) 20 mg tablet Take 3 tablets (60 mg) by mouth once daily. Take 3 tablets (60 mg) by mouth daily. Take 3 tablets (60 mg) daily x 14 days, then 2.5 tablets (50 mg) dailyx 14 days, then 2 tablets (40 mg) daily until follow-up No current facility-administered medications on file prior to visit. No images are attached to the encounter. Assessment/Plan Diagnoses and all orders for this visit: Weakness Pain in buttock PVD (peripheral vascular disease) ([facility]) 1. Patient to go to [facility] discussed with attending is aware coming for weakness 2. Patient to call if questions or concerns [facility] Work Phone: [phone] Telephone encounter Note* Telephone Encounter - Blaire Zhu - 10/05/2024 3:45 PM EST Pt is calling for a refill on Carvedilol to be sent to [id number] Miscellaneous Notes* Telephone Encounter - Blaire Zhu - 10/05/2024 3:45 PM EST Pt is calling for a refill on Carvedilol to be sent to [facility] documented in this encounterSSt. [facility] of God [id number] Telephone encounter Note* Telephone Encounter - Baljeet Patel RN - 09/22/2024 9:53 AM EST She took lasix PRN prior to hospital, and accumulated too much. Then felt too dry on daily. Based on this I would have her take her Lasix 20 mg [id number] and continue weights as discussed in office I called and relayed the message above from Marcia Correa CNP to Rolando. Rolando said she will start the Lasix today. She will call with significant weight changes as discussed. [facility] [id number] Miscellaneous Notes* Telephone Encounter - Baljeet Patel RN - 09/22/2024 9:53 AM EST She took lasix PRN prior to hospital, and accumulated too much. Then felt too dry on daily. Based on this I would have her take her Lasix 20 mg [id number] and continue weights as discussed in office I called and relayed the message above from Marcia Correa CNP to Rolando. Rolando said she will start the Lasix today. She will call with significant weight changes as discussed. * Telephone Encounter - Baljeet Patel RN - 09/22/2024 9:08 AM EST I called and spoke with Rolando. Rolando said that here weights are Stable Mon.- 132.2, Thu.-131.8, Thu.-132.4. BP Mon.-PM 173/55, Tue.-AM 138/45, Thu. AM 132/51. No swelling to speak of she said and her breathing is okay. Will continue to hold Lasix for now and will call if weight gain 3 pounds over night or 5 pounds in a week. If she has any concerns about fluid retention or changes in breathing shewill call our office. * Telephone Encounter - lBaire Zhu - 09/22/2024 7:44 AM EST Pt called in and left a voice mail returning Mario call, Please call her today * Telephone Encounter - Baljeet Patel RN - 09/19/2024 8:49 AM EST ----- Message from SUJATA Negrete CNP sent at 09/19/2024 7:58 AM EST ----- Can you please call pt? When I saw her she c/o weakness in her legs. I thought from a volume statusshe looked better, but given kidney function is up a little we could always hold her lasix for 2 days and have her call us back with how she is feeling. I would also want to check that her weights are stable, and not still down-trending. Thanks. ----- Message ----- From: [facility] Lab Results In Sent: 09/17/2024 6:31 AM EST To: SUJATA Negrete CNP I called and relayed the above note to Rolando. I explained to Rolando that she appears to be on the dry side based on her increase BUN and increase Creatinine. Rolando will call our office on Thursday toupdate us on her weights and how she is feeling. documented in this encounterSSt. John of God [id number] Telephone encounter Note* Telephone Encounter - Baljeet Patel RN - 09/22/2024 9:08 AM EST I called and spoke with Rolando. Rolando said that here weights are Stable Mon.- 132.2, Tue.-131.8, Wed.-132.4. BP Mon.-PM 173/55, Tue.-AM 138/45, Wed. AM 132/51. No swelling to speak of she said and her breathing is okay. Will continue to hold Lasix for now and will call if weight gain 3 pounds over night or 5 pounds in a week. If she has any concerns about fluid retention or changes in breathing shewill call our office. [facility] [id number] Telephone encounter Note* Telephone Encounter - Blaire Zhu - 09/22/2024 7:44 AM EST Pt called in and left a voice mail returning [place] call, Please call her today [facility] [id number] Telephone encounter Note* Telephone Encounter - Baljeet Patel RN - 09/19/2024 8:49 AM EST ----- Message from SUJATA Negrete CNP sent at 09/19/2024 7:58 AM EST ----- Can you please call pt? When I saw her she c/o weakness in her legs. I thought from a volume statusshe looked better, but given kidney function is up a little we could always hold her lasix for 2 days and have her call us back with how she is feeling. I would also want to check that her weights are stable, and not still down-trending. Thanks. ----- Message ----- From: Red Ambient[facility], [facility] Results In Sent: 09/17/2024 6:31 AM EST To: Marcia Correa APRN - WINDOWS TECHNICAL SPECIALIST I called and relayed the above note to Rolando. I explained to Rolando that she appears to be on the dry side based on her increase BUN and increase Creatinine. Rolando will call our office on Thursday toupdate us on her weights and how she is feeling. [facility] [id number] Telephone encounter Note* Telephone Encounter - Ramirez Vera - 09/16/2024 3:31 PM EST Auth Approved #[id number] for NST [id number]. Valid 09/16/24 to 11/15/24. Per [facility]. Okay to schedule Thank you [facility] [id number] Miscellaneous Notes* Telephone Encounter - Ramirez Vera - 09/16/2024 3:31 PM EST Auth Approved #[id number] for NST 93666. Valid 09/16/24 to 11/15/24. [facility]. Okay to schedule Thank you * Telephone Encounter - Ramirez Vera - 09/16/2024 1:54 PM EST Ill work on this * Telephone Encounter - Loly Cooper - 09/16/2024 1:43 PM EST Patient was ordered a NM stress test and would need a prior auth before scheduling please. Thanks documented in this [facility]01-31-2025 Evaluation + Plan note* Assessment & Plan Note - SUJATA Negrete CNP - 09/16/2024 3:06 PM EST Associated Problem(s): Essential hypertension Improved since hospital with the RE-addition of Amlodipine. -continues on Losartan, Coreg -continues on amlodipine 2.5 mg daily [facility] [id number] Miscellaneous Notes* Assessment & Plan Note - SUJATA Negrete CNP - 09/16/2024 3:06 PM ESTAssociated Problem(s): Essential hypertension Improved since hospital with the RE-addition of Amlodipine. -continues on Losartan, Coreg -continues on amlodipine 2.5 mg daily * Assessment & Plan Note - SUJATA Negrete CNP - 09/16/2024 1:21 PM EST Associated Problem(s): Bilateral carotid artery stenosis Moderate. Coronary risk equivalent. No symptoms. She has a history of right carotid endarterectomy. -Carotid US 04/2024 - normal antegrade flow left and right -Given ASCVD and DM2 consider add SGLT2i * Assessment & Plan Note - SUJATA Negrete CNP - 09/16/2024 1:18 PM EST Associated Problem(s): Obstructive sleep apnea syndrome -08/2024 received autoPAP, and reports compliance; encouraged absolute compliance * Assessment & Plan Note - SUJATA Negrete CNP - 09/16/2024 12:32 PM EST Associated Problem(s): Dyslipidemia Target LDL <70. LDL 62 (11/2023) - Cont zetia - Cont crestor - Cont Vascepa. -Cont lifestyle mgt given elev TG; if much higher over time, consider Tricor * Assessment & Plan Note - SUJATA Negrete CNP - 09/16/2024 12:30 PM EST Associated Problem(s): Heart failure with improved ejection fraction (HFimpEF) ([facility]) ACC Stage C. NYHA Class I. Thought rhythm-mediated. -TTE 07/2024 shows LVEF 55%, normal wall motion, increased filling pressures -volume status on exam appears improved, and weight down 7# -continues on Losartan 100 mg daily -continues on Coreg as above -continues on Lasix 20 mg daily -check BMP now to document stability * Assessment & Plan Note - SUJATA Negrete CNP - 09/16/2024 12:26 PM EST Associated Problem(s): PAF (paroxysmal atrial fibrillation) ([facility]) Nonvalvular. Hx pAF s/p PVI + PWI + ablation of atypical atrial flutter on 05/06/2024. At one point she was on Amiodarone. -maintaining SR -continues on Eliquis 5 mg BID, per age/wt/creat -continues on Coreg 12.5 mg BID -follows with EP- Dr. Leigh on PRN basis documented in this [facility]01-31-2025 Telephone encounter Note* Telephone Encounter - Ramirez Vera - 09/16/2024 1:54 PM EST Ill work on this [facility] [id number] Telephone encounter Note* Telephone Encounter - Loly Cooper - 09/16/2024 1:43 PM EST Patient was ordered a NM stress test and would need a prior auth before scheduling please. Thanks [facility] [id number] Evaluation + Plan note* Assessment & Plan Note - SUJATA Negrete CNP - 09/16/2024 1:21 PM ESTAssociated Problem(s): Bilateral carotid artery stenosis Moderate. Coronary risk equivalent. No symptoms. She has a history of right carotid endarterectomy. -Carotid US 04/2024 - normal antegrade flow left and right -Given ASCVD and DM2 consider add SGLT2i [id number] Evaluation + Plan note* Assessment & Plan Note - SUJATA Negrete CNP - 09/16/2024 1:18 PM ESTAssociated Problem(s): Obstructive sleep apnea syndrome -08/2024 received autoPAP, and reports compliance; encouraged absolute compliance [place] [id number] History of Present illness Narrative* SUJATA Negrete CNP - 09/16/2024 1:00 PM EST Images from the original note were not included. [facility] - [address] [facility] [address] Dept: [phone] Dept Loc: [phone] Visit type: Established : 1945 Reason for Visit: Hospital Follow-up Assessment and Plan 1. PAF (paroxysmal atrial fibrillation) (HCC) Assessment & Plan: Nonvalvular. Hx pAF s/p PVI + PWI + ablation of atypical atrial flutter on 05/06/2024. At one point she was on Amiodarone. -maintaining SR -continues on Eliquis 5 mg BID, per age/wt/creat -continues on Coreg 12.5 mg BID -follows with EP- Dr. Leigh on PRN basis Orders: - ECG 12 lead - CLINIC PERFORMED - Nuclear REGADENOSON stress test with myocardial perfusion 2. Heart failure with improved ejection fraction (HFimpEF) ([facility]) Assessment & Plan: ACC Stage C. NYHA Class I. Thought rhythm-mediated. -TTE 07/2024 shows LVEF 55%, normal wall motion, increased filling pressures -volume status on exam appears improved, and weight down 7# -continues on Losartan 100 mg daily -continues on Coreg as above -continues on Lasix 20 mg daily -check BMP now to document stability Orders: - Basic metabolic panel - Nuclear REGADENOSON stress test with myocardial perfusion 3. Essential hypertension Assessment & Plan: Improved since hospital with the RE-addition of Amlodipine. -continues on Losartan, Coreg -continues on amlodipine 2.5 mg daily Orders: - Nuclear REGADENOSON stress test with myocardial perfusion 4. Bilateral carotid artery stenosis Assessment & Plan: Moderate. Coronary risk equivalent. No symptoms. She has a history of right carotid endarterectomy. -Carotid US 04/2024 - normal antegrade flow left and right -Given ASCVD and DM2 consider add SGLT2i 5. Dyslipidemia Assessment & Plan: Target LDL <70. LDL 62 (11/2023) - Cont zetia - Cont crestor - Cont Vascepa. -Cont lifestyle mgt given elev TG; if much higher over time, consider Tricor 6. Obstructive sleep apnea syndrome Assessment & Plan: -08/2024 received autoPAP, and reports compliance; encouraged absolute compliance 7. Coronary artery calcification - Nuclear REGADENOSON stress test with myocardial perfusion Follow up for Next scheduled follow-up. Subjective Hx of carotid dz and CEA, breast CA, CKD stage II, tobacco abuse, COPD, HTN, HFmrEF, PAF She was last seen by Dr. Jerome April 2023 when she was stable from a cardiac standpoint. She was admitted to [facility] September 2023 with acute pneumothorax after having an outpatient [facility]. Shereceived a chest tube. No cardiac decompensation at that office visit. 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 Amiodarone + Cardioversion. Apr [address] Leigh PVI + PWI + atrial flutter ablation. No longer on Amiodarone. Aug 2024 hospitalized for pneumonia and right thoracentesis s/p 450 ml off. Cardiology consulted for chest pain, dyspnea, CHF, and diuresed with IV Lasix, changed home lasix from 20 mg PRN to 20 mg daily, and recommended Lexiscan stress test once recovered. She presents today for hospital follow-up. EKG- maintaining SR. This morning she reports a chest heaviness while laying in bed, with associated back pain, palpitations, and SOB. It improved after she got moving for the day. She also reports weakness in her legs. Her weight is down 7# since the hospital, which may be related to increasing the lasix from 20 mg PRN to 20 mg daily. Will check BMP now. BP improved on new regimen. Since hospital SBP 160-170 ... Now 130-140. Reviewed conversations from the hospital, including consideration of stress test once pneumonia andhypertension improve. Cardiology's consult note from when she was in hospital stated, Her high-sensitivity troponins were negative, and a CT angiogram was done of her chest and abdomen to rule out dissection and this was negative for dissection but did show diffuse atherosclerotic disease throughout her aorta and even a possible occlusion of the right iliac artery. She is agreeable for stress test, and I have ordered today. She will follow-up with Dr. Jerome after that- a lot has happened since she last saw him 04/2023. Review of Systems Constitutional: Positive for unexpected weight change (down 7#, expected with lasix 20 mg daily, asopposed to PRN). Negative for activity change, chills, diaphoresis, fatigue and fever. HENT: Negative for nosebleeds and trouble swallowing. Eyes: Negative for discharge and visual disturbance. Respiratory: Negative for apnea, cough, chest tightness, shortness of breath and wheezing. Sleeps on 1 pillow Cardiovascular: Positive for chest pain (heaviness while laying flat this morning) and palpitations (when laying this morning with the chest heaviness). Negative for leg swelling. Gastrointestinal: Negative for abdominal distention, abdominal pain, blood in stool, diarrhea, nausea and vomiting. Endocrine: Negative for cold intolerance and heat intolerance. Genitourinary: Negative for hematuria. Musculoskeletal: Negative for gait problem and myalgias. Skin: Negative for color change and rash. Neurological: Positive for weakness (bilateral legs). Negative for dizziness, seizures, syncope, facial asymmetry, speech difficulty, light-headedness, numbness and headaches. Hematological: Does not bruise/bleed easily. Psychiatric/Behavioral: Negative for dysphoric mood. Allergies Allergen Reactions Isosulfan Blue Anaphylaxis Methylene Blue Sulfa Antibiotics Rash Outpatient Medications Prior to Visit Medication Sig Dispense Refill albuterol (Ventolin HFA) 108 (90 Base) MCG/ACT inhaler Inhale 2 puffs every 4 hours as needed for wheezing or shortness of breath. 8 g 11 amLODIPine (Norvasc) 2.5 MG tablet Take 1 tablet (2.5 mg) by mouth daily. 30 tablet 1 apixaban (Eliquis) 5 MG tablet Take 1 tablet (5 mg) by mouth 2 times daily. 180 tablet 1 atovaquone (Mepron) 750 MG/5ML suspension Take 10 mL (1,500 mg) by mouth daily. 600 mL 0 carvedilol (Coreg) 12.5 MG tablet Take 1 tablet (12.5 mg) by mouth in the morning and 1 tablet (12.5 mg) in the evening. Take with meals. 180 tablet 1 cholecalciferol (Vitamin D-3) 50 MCG (2000 UT) tablet Take 4,000 Units by mouth daily. Contour Next Test test strip USE ONE strip TO test TWICE DAILY ezetimibe (Zetia) 10 MG tablet Take 1 tablet (10 mg) by mouth in the morning. 90 tablet 2 Finerenone (Kerendia) 10 MG tablet Take 1 tablet by mouth daily. fluticasone (Cutivate) 0.05 % cream Apply topically Daily as needed (itching). fluticasone (Flonase) 50 MCG/ACT nasal spray Administer 1 spray into each nostril daily. Shake gently. Before first use, prime pump. After use, clean tip and replace cap. furosemide (Lasix) 20 MG tablet Take 1 tablet (20 mg) by mouth daily. Do not start before August 30, 2024. 30 tablet 0 Jentadueto XR 2.5-1000 MG per 24 hr tablet take 2 tablets by mouth once daily lansoprazole (Prevacid) [address] capsule 1 capsule in the morning. losartan (Cozaar) 100 MG tablet Take 1 tablet (100 mg) by mouth daily. 90 tablet 1 Multiple Vitamins-Minerals (MULTIPLE VITAMINS/WOMENS PO) Take by mouth daily. predniSONE (Deltasone) 20 MG tablet Take 3 tablets (60 mg) by mouth daily. Take 3 tablets (60 mg) daily x 14 days, then 2.5 tablets (50 mg) daily x 14 days, then 2 tablets (40 mg) daily until follow-up 180 tablet 0 rosuvastatin (Crestor) 10 MG tablet daily. sertraline (Zoloft) 25 MG tablet Take 1 tablet (25 mg) by mouth daily. 30 tablet 11 tiotropium (Spiriva Respimat) 2.5 MCG/ACT inhaler Inhale 2 puffs daily. 1 each 11 Vascepa 1 g capsule TAKE 2 CAPSULES BY MOUTH 2 TIMES DAILY 360 capsule 3 guaiFENesin (Mucinex) 600 MG 12 hr tablet Take 1,200 mg by mouth twice a day. (Patient not taking: Reported on 09/16/2024) No facility-administered medications prior to visit. Past Medical History: Diagnosis Date Arrhythmia Arthritis Asthma Breast cancer (HCC) 1993 Right Breast(Mastectomy) Breast cancer (HCC) 2010 Left Breast(Simple Mastectomy, SLND) Chronic kidney disease COPD (chronic obstructive pulmonary disease) (HCC) Coronary artery disease Diabetes (HCC) Emphysema of lung (HCC) Within last year GERD (gastroesophageal reflux disease) High blood pressure Lung nodule -2022 Occlusion and stenosis of unspecified carotid artery Pure hypercholesterolemia Syncope and collapse 08/29/2022 Social History Tobacco Use Smoking status: Former Current packs/day: 0.00 Average packs/day: 1 pack/day for 30.0 years (30.0 ttl pk-yrs) Types: Cigarettes Start date: 08/17/1963 Quit date: 08/17/1993 Years since quittin.1 Smokeless tobacco: Never 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: , 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[facility], 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, 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 Substance Use Topics Alcohol use: Yes Alcohol/week: 2.0 - 16.0 standard drinks of alcohol Types: 2 Glasses of wine per week Comment: occ Past Surgical History: Procedure Laterality Date BRONCHOSCOPY CARDIAC ELECTROPHYSIOLOGY PROCEDURE N/A 05/05/2024 Performed by Walt Leigh MD at [facility] Cardiac Cath/EP Lab CAROTID ENDARTERECTOMY Right 2008 CATARACT EXTRACTION Bilateral 2006 CHEST TUBE INSERTION Right 10/05/2023 HC ENDOBRONCHIAL ULTRASOUND EBUS (HISTORICAL) 10/05/2023 LUNG BIOPSY MASTECTOMY Left 2010 simple/reconstruction/gingivagrapht MASTECTOMY Right 1993 reconstruction (TRAM) TOTAL ABDOMINAL HYSTERECTOMY W/ BILATERAL SALPINGOOPHORECTOMY 1998 TUBAL LIGATION 1979 Family History Problem Relation Name Age of Onset Ovarian cancer Mother 66 Heart attack Father Lucita (Mother) 76 High Blood Pressure Father Lucita (Mother) Macular degeneration Father Lucita (Mother) Cancer Father Lucita (Mother) Ovarian cancer Mother's Sister 45 Other ([id number]) Son neuofibromatosis, BRCA1 positive Neurofibromatosis Son High Blood Pressure Son Cancer Son hairy cell leukemia Breast cancer Cousin 42 +brca Bladder Cancer Cousin 19 Hypertension Sister Angie Kidney disease Sister Angie Hypertension Sister Mireya Sister Kidney disease Sister Mireya Sister Objective Vitals: 09/16/24 1257 BP: 128/56 BP Location: Left arm Patient Position: Sitting BP Cuff Size: Adult Pulse: 64 Weight: 133 lb 8 oz (60.6 kg) Height: 5' 7 (1.702 m) Physical Exam Constitutional: Appearance: Normal appearance. HENT: Head: Normocephalic. Eyes: General: No scleral icterus. Right eye: No discharge. Left eye: No discharge. Cardiovascular: Rate and Rhythm: Normal rate and regular rhythm. Pulses: Normal pulses. Heart sounds: Normal heart sounds. No murmur heard. Pulmonary: Effort: Pulmonary effort is normal. Breath sounds: Decreased breath sounds present. Abdominal: General: Abdomen is flat. Palpations: Abdomen is soft. Musculoskeletal: General: Normal range of motion. Cervical back: Normal range of motion. Skin: General: Skin is warm and dry. Capillary Refill: Capillary refill takes less than 2 seconds. Neurological: Mental Status: She is alert and oriented to person, place, and time. Psychiatric: Mood and Affect: Mood normal. Data Reviewed and Summarized Labs: Lab Results Component Value Date GLUCOSE 147 (H) 08/29/2024 CALCIUM 8.7 (L) 08/29/2024 NA 136 08/29/2024 K 4.1 08/29/2024 CO2 25 08/29/2024 CL 100 08/29/2024 BUN 37 (H) 08/29/2024 CREATININE 1.09 08/29/2024 Lab Results Component Value Date ALT 30 (H) 08/29/2024 AST 24 08/29/2024 ALKPHOS 52 08/29/2024 BILITOT 0.4 08/29/2024 Lab Results Component Value Date WBC 7.8 08/29/2024 HGB 10.0 (L) 08/29/2024 HCT 31.6 (L) 08/29/2024 MCV 90.3 08/29/2024 PLT 237 08/29/2024 Lab Results Component Value Date TSH 1.13 12/03/2022 Lab Results Component Value Date CHOL 149 06/14/2020 CHOL 170 08/22/2019 Lab Results Component Value Date HDL 45 06/14/2020 HDL 54 08/22/2019 No results found for: LDLCALC Lab Results Component Value Date TRIG 265 (A) 06/14/2020 TRIG 280 (A) 08/22/2019 No results found for: CHOLHDL No results found for: HGBA1C Wt Readings from Last 3 Encounters: 09/16/24 133 lb 8 oz (60.6 kg) 08/26/24 140 lb (63.5 kg) 08/19/24 140 lb (63.5 kg) Cardiac Tests / Imagin07/25/24 TRANSTHORACIC ECHOCARDIOGRAM (TTE) COMPLETE (CONTRAST/BUBBLE/3D PRN) 07/25/2024 4:27 PM (Final) Interpretation Summary Left Ventricle: Left ventricle size is normal. Normal wall thickness. Normal left ventricular systolic function. EF by 2D Simpsons Biplane is 55%. Normal wall motion. Grade II diastolic dysfunction with increased LAP. Right Ventricle: Right ventricle size is normal. Normal systolic function. Aortic Valve: Mild (1+) regurgitation. Mild stenosis of the aortic valve. AV mean gradient is 7 mmHg. Mitral Valve: Moderately thickened leaflets. Mildly calcified leaflets. Mild annular calcification.Moderate (2+) regurgitation with a posterior directed jet. Mild stenosis noted. Tricuspid Valve: Mild to moderate (1-2+) regurgitation. RVSP is 72 mmHg. Signed by: Fabiola Potter on 07/25/2024 4:27 PM IMarcia APRN - CNP, furnish ongoing care related to Rolando Peters single, serious and complex condition(s) HFimpEF. I assume responsibility for the patient's ongoing medical care of this condition. SUJATA Bullock CNP documented in this [facility]01-31-2025 Evaluation + Plan note* Assessment & Plan Note - SUJATA Negrete CNP - 09/16/2024 12:32 PM EST Associated Problem(s): Dyslipidemia Target LDL <70. LDL 62 (11/2023) - Cont zetia - Cont crestor - Cont Vascepa. -Cont lifestyle mgt given elev TG; if much higher over time, consider Tricor [facility] [id number] Evaluation + Plan note* Assessment & Plan Note - SUJATA Negrete CNP - 09/16/2024 12:30 PM ESTAssociated Problem(s): 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) ACC Stage C. NYHA Class I. Thought rhythm-mediated. -TTE 07/2024 shows LVEF 55%, normal wall motion, increased filling pressures -volume status on exam appears improved, and weight down 7# -continues on Losartan 100 mg daily -continues on Coreg as above -continues on Lasix 20 mg daily -check BMP now to document stability [facility] [id number] Evaluation + Plan note* Assessment & Plan Note - SUJATA Negrete CNP - 09/16/2024 12:26 PM ESTAssociated Problem(s): PAF (paroxysmal atrial fibrillation) (HCC) Nonvalvular. Hx pAF s/p PVI + PWI + ablation of atypical atrial flutter on 05/06/2024. At one point she was on Amiodarone. -maintaining SR -continues on Eliquis 5 mg BID, per age/wt/creat -continues on Coreg 12.5 mg BID -follows with EP- Dr. Leigh on PRN basis [facility] [id number] History of Present illness Narrative* Celia Al DO - 09/09/2024 9:20 AM EST Patient: Rolando Peters : 1945 PCP: Celia Al DO Program: No linked episodes Rolando Peters is a 79 y.o. female presenting today for follow-up after being discharged from the hospital 11 days ago. The main problem requiring admission was acute on chronic HFpEF, bilateral pleural effusion, type 2 diabetes with hyperglycemia. The discharge summary and/or Transitional Care Management documentation was reviewed. Medication reconciliation was performed as indicated via the [place] as Reviewed timestamp. Rolando Peters was contacted by Transitional Care Management services two days after her discharge.This encounter and supporting documentation was reviewed. The complexity of medical decision making for this patient's transitional care is moderate. Patient's discharge summary is copied in its entirety and is as follows: Hospitalist Discharge Summary Rolando Peters : 1945 Admit date: 08/26/2024 Discharge date: 08/29/2024 Admitting Physician: Reginald Garza DO Primary Care Physician: CELIA AL DO Visit Status: ADMIT Code Status: Full Code BRIEF HOSPITAL COURSE: Rolando is a 79 y.o. female with past medical history organizing PNA, DM2, INGA, COPD, CKD3, history of pulm nodules, pAF, HFpEF, h/o breast CA who presents with chief complaint of dyspnea on exertion, CP, back pain. Hx of organizing PNA and follows with [facility]. S/p ENB/EBUS 10/05/23. 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 Right middle lobe biopsy also with adjacent acellular material. TBNA with RML with atypical cells, RLL nondiagnostic, LN 7, 4R, 11R negative for malignancy. Pneumonia PCR, bacterial culture, fungal stain/culture, AFB stain/culture, silver stain, Aspergillus galactomannan, beta D glucan negative. Autoimmune evaluation with WERO, ANCA, RF, anti-CCP, Sjogren's antibody, myositis panel, HP panel negative. Prior infectious evaluation negative. Completed MBS, negative foraspiration. Unclear etiology for organizing pneumonia. In the ER, vitals significant for BP 190s/70s, labs significant for BNP 6947, GFR 56.4, trop 22-->19, Hgb 9.9. CTA was obtained to rule out PE or dissection, this showed multiple pulm nodules, b/l pleural effusions and multiple areas of atherosclerosis but otherwise unremarkable. CXR showed interstitial edema. Of note, she was recently seen by pulm 1/3 for follow-up regarding multiple lung nodules who placed her on prolonged steroid course due to similar symptoms of CRUZ in the setting of organizing PNA. She is on atovaquone for PCP prophylaxis. There was some discussion of possible thoracentesis for R pleural effusion, she was hopingto defer for repeat imaging before making that decision. Will admit for further evaluation and management. Patient had a recent echo on 07/25/24 consistent with an EF of 55%, moderate MR, mild stenosis of the aortic valve, mild to moderate tricuspid valve. Treated with IV Lasix 20 mg, will increase to IV 40 twice daily with strict I's and O's. No need to repeat echo. Started on IV diuresis with cardiology consulted and recommend stopping IV Lasix. Patient is usually on Lasix 20 mg as needed and w ill increase to 20 mg daily. Plans to follow-up with Dr. Jerome on 10/31/2024 as an outpatient. Pulmonary consulted and recommends diagnostic and therapeutic thoracentesis on the right side to prevent fibrothorax. S/p -450 mL out. Remains on prednisone therapy and will likely follow-up as an outpatient. Medically stable for discharge Acute, acute on chronic, unstable/uncontrolled chronic problems/diagnoses: Acute on chronic HFpEF Bilateral pleural effusions Type 2 DM with hyperglycemia Stable chronic problems affecting care, new non-acute diagnoses: CAD HTN HLD CKD stage III Hx of organizing PNA on Atovaquone PAF s/p ablation INGA COPD/asthma overlap Hx of stage I triple negative breast cancer s/p left mastectomy 05/2011, right- sided breast cancer s/p mastectomy 06/1994 s/p adjuvant chemo/tamoxifen Hx of pulmonary nodules Hx of tobacco use GERD Past Medical History: Diagnosis Date Arrhythmia Arthritis Asthma Breast cancer (HCC) 1993 Right Breast(Mastectomy) Breast cancer (HCC) 2010 Left Breast(Simple Mastectomy, SLND) Chronic kidney disease COPD (chronic obstructive pulmonary disease) (HCC) Coronary artery disease Diabetes (HCC) Emphysema of lung (HCC) Within last year GERD (gastroesophageal reflux disease) High blood pressure Lung nodule -2022 Occlusion and stenosis of unspecified carotid artery Pure hypercholesterolemia Syncope and collapse 08/29/2022 Procedures: Right thoracentesis (08/29/24) Hospital Course: See discharge diagnoses list above and medication adjustments below in med rec.Thepatient is discharged in improved and stable condition. Consults: IP CONSULT TO PULMONOLOGY IP CONSULT TO CARDIOLOGY Discharge Instructions: Diet: Dietary Orders (From admission, onward) Start Ordered 08/26/242101 Adult diet Regular; Low Fat/Low Chol/High Fiber/2 gm Na Diet effective now Question Answer Comment Diet type Regular Diet Cardiac type: Low Fat/Low Chol/High Fiber/2 gm Na 08/26/242100 Activity: as tolerated Recommended Outpatient Tests: Disposition: Patient discharged in stable condition to Home. Spent 45 min discharging the patient and coming up with patient discharge plan. Vitals: BP (!) 156/43 Pulse 85 Temp 37 C (98.6 F) (Temporal) Resp 16 Ht 5' 7 (1.702 m) Wt 140 lb (63.5 kg) SpO2 95% BMI 21.93 kg/m Pulse Ox: SpO2 Av % Min: 93 % Max: 96 % Supplemental O2: Physical Exam Constitutional: Appearance: She is obese. She is not ill-appearing. Cardiovascular: Rate and Rhythm: Normal rate. Heart sounds: No murmur heard. Pulmonary: Effort: No respiratory distress. Breath sounds: Rhonchi present. No wheezing. Abdominal: General: There is no distension. Tenderness: There is no abdominal tenderness. Musculoskeletal: General: Swelling present. Neurological: Mental Status: Mental status is at baseline. LABS: Recent Labs 08/27/24 0657 08/28/24 0417 08/29/24 0404 NA 136 135* 136 K 4.3 3.7 4.1 CL 105 103 100 CO2 20* 21* 25 BUN 28* 28* 37* CREATININE 1.01 1.10 1.09 GLUCOSE 108 155* 147* CALCIUM 8.7* 8.4* 8.7* Recent Labs 08/27/24 0657 08/28/24 0417 08/29/24 0404 WBC 7.6 7.0 7.8 RBC 3.30* 3.41* 3.50* HGB 9.5* 9.7* 10.0* HCT 29.6* 30.4* 31.6* MCV 89.7 89.1 90.3 MCH 28.8 28.4 28.6 MCHC 32.1 31.9 31.6 RDW 14.6 14.7 14.5 PLT 225 233 237 MPV 9.9 9.5 9.7 Discharge Medications: Medication List START taking these medications amLODIPine 2.5 MG tablet Commonly known as: Norvasc Take 1 tablet (2.5 mg) by mouth daily. Start taking on: August 30, 2024 CHANGE how you take these medications furosemide 20 MG tablet Commonly known as: Lasix Take 1 tablet (20 mg) by mouth daily. Do not start before August 30, 2024. Start taking on: August 30, 2024 What changed: when to take this reasons to take this CONTINUE taking these medications albuterol 108 (90 Base) MCG/ACT inhaler Commonly known as: Ventolin HFA Inhale 2 puffs every 4 hours as needed for wheezing or shortness of breath. atovaquone 750 MG/5ML suspension Commonly known as: Mepron Take 10 mL (1,500 mg) by mouth daily. carvedilol 12.5 MG tablet Commonly known as: Coreg Take 1 tablet (12.5 mg) by mouth in the morning and 1 tablet (12.5 mg) in the evening. Take with meals. cholecalciferol 50 MCG (2000 UT) tablet Commonly known as: Vitamin D-3 Contour Next Test test strip Generic drug: glucose blood Eliquis 5 MG tablet Generic drug: apixaban Take 1 tablet (5 mg) by mouth 2 times daily. ezetimibe 10 MG tablet Commonly known as: Zetia Take 1 tablet (10 mg) by mouth in the morning. fluticasone 0.05 % cream Commonly known as: Cutivate fluticasone 50 MCG/ACT nasal spray Commonly known as: Flonase guaiFENesin 600 MG 12 hr tablet Commonly known as: Mucinex Jentadueto XR 2.5-1000 MG per 24 hr tablet Generic drug: linaGLIPtin-metFORMIN ER Kerendia 10 MG tablet Generic drug: Finerenone lansoprazole [address] capsule Commonly known as: Prevacid losartan 100 MG tablet Commonly known as: Cozaar Take 1 tablet (100 mg) by mouth daily. MULTIPLE VITAMINS/WOMENS PO predniSONE 20 MG tablet Commonly known as: Deltasone Take 3 tablets (60 mg) by mouth daily. Take 3 tablets (60 mg) daily x 14 days, then 2.5 tablets (50mg) daily x 14 days, then 2 tablets (40 mg) daily until follow-up rosuvastatin 10 MG tablet Commonly known as: Crestor sertraline 25 MG tablet Commonly known as: Zoloft Take 1 tablet (25 mg) by mouth daily. Spiriva Respimat 2.5 MCG/ACT inhaler Generic drug: tiotropium Inhale 2 puffs daily. Vascepa 1 g capsule Generic drug: Icosapent Ethyl TAKE 2 CAPSULES BY MOUTH 2 TIMES DAILY Where to Get Your Medications These medications were sent to [facility] - [address] [facility] [id number] amLODIPine 2.5 MG tablet furosemide 20 MG tablet Recommended Follow-up: Rashi Jerome MD [address] [facility] [address] [facility] [address] Schedule an appointment as soon as possible for a visit in 2 week(s) [place] [address] [place] [address], [address] [facility] [address] Follow up in 2 day(s) follow within two weeks Review of Systems Constitutional: Negative for activity change, appetite change, fatigue and fever. HENT: Negative for congestion. Respiratory: Positive for cough and shortness of breath. Negative for choking and chest tightness. Cardiovascular: Negative for chest pain, palpitations and leg swelling. Musculoskeletal: Negative for arthralgias, back pain and gait problem. Skin: Negative for color change and pallor. Neurological: Negative for dizziness, facial asymmetry, light-headedness and headaches. Family History Problem Relation Name Age of Onset Ovarian cancer Mother Heart attack Father Other (auto immune) Sister Mireya No Known Problems Sister Angie Arthritis Other FH Heart murmur Other FH Hypertension Other FH Leukemia Other FH Breast cancer Other FH Female Ovarian cancer Other FH No data recorded No follow-ups on file. Objective BP 126/50 Pulse 78 Temp 36.1 C (97 F) Ht 1.702 m (5' 7) Wt 61.2 kg (135 lb) SpO2 99% BMI 21.14 kg/m BSA Body surface area is 1.7 meters squared. Physical Exam Constitutional: General: She is not in acute distress. Appearance: Normal appearance. She is not toxic-appearing. HENT: Head: Normocephalic. Right Ear: Tympanic membrane, ear canal and external ear normal. Left Ear: Tympanic membrane, ear canal and external ear normal. Nose: Nose normal. Eyes: Conjunctiva/sclera: Conjunctivae normal. Pupils: Pupils are equal, round, and reactive to light. Cardiovascular: Rate and Rhythm: Normal rate and regular rhythm. Pulses: Normal pulses. Heart sounds: Normal heart sounds. Pulmonary: Effort: No respiratory distress. Breath sounds: No wheezing, rhonchi or rales. Musculoskeletal: General: No swelling or tenderness. Skin: Findings: No lesion or rash. Neurological: General: No focal deficit present. Mental Status: She is alert and oriented to person, place, and time. Mental status is at baseline. Gait: Gait normal. Psychiatric: Mood and Affect: Mood normal. Behavior: Behavior normal. Thought Content: Thought content normal. Judgment: Judgment normal. Lab on 08/02/2024 Component Date Value Ref Range Status Glucose 08/02/2024 103 (H) 74 - 99 mg/dL Final Sodium 08/02/2024 137 136 - 145 mmol/L Final Potassium 08/02/2024 4.9 3.5 - 5.3 mmol/L Final Chloride 08/02/2024 106 98 - 107 mmol/L Final Bicarbonate 08/02/2024 22 21 - 32 mmol/L Final Anion Gap 08/02/2024 14 10 - 20 mmol/L Final Urea Nitrogen 08/02/2024 15 6 - 23 mg/dL Final Creatinine 08/02/2024 1.01 0.50 - 1.05 mg/dL Final eGFR 08/02/2024 57 (L) >60 mL/min/1.73m*2 Final Calculations of estimated GFR are performed using the 2020 CKD-EPI Study Refit equation without therace variable for the IDMS-Traceable creatinine methods. https://jasn.asnjournals.org/content//ASN.2531452279 Calcium 08/02/2024 8.9 8.6 - 10.6 mg/dL Final Albumin 08/02/2024 4.0 3.4 - 5.0 g/dL Final Alkaline Phosphatase 08/02/2024 46 33 - 136 U/L Final Total Protein 08/02/2024 6.5 6.4 - 8.2 g/dL Final AST 08/02/2024 26 9 - 39 U/L Final Bilirubin, Total 08/02/2024 0.5 0.0 - 1.2 mg/dL Final ALT 08/02/2024 24 7 - 45 U/L Final Patients treated with Sulfasalazine may generate falsely decreased results for ALT. Thyroid Stimulating Hormone 08/02/2024 1.42 0.44 - 3.98 mIU/L Final Magnesium 08/02/2024 1.99 1.60 - 2.40 mg/dL Final Phosphorus 08/02/2024 4.8 2.5 - 4.9 mg/dL Final The performance characteristics of phosphorus testing in heparinized plasma have been validated by the individual laboratory site where testing is performed. Testing on heparinized plasma is not approved by the FDA; however, such approval is not necessary. Vitamin B12 08/02/2024 207 (L) 211 - 911 pg/mL Final Folate, Serum 08/02/2024 23.5 >5.0 ng/mL Final Methylmalonic Acid, S 08/02/2024 0.25 0.00 - 0.40 umol/L Final INTERPRETIVE INFORMATION: MMA Serum/Plasma, Vitamin B12 Status This test was developed and its performance characteristics determined by [facility]. It has not been cleared or approved by the US Food and Drug Administration. This test was performed in a CLIA certified laboratory and is intended for clinical purposes. Performed By: [facility] [address] [place] [address] Needle Punch Operator: Rosalee Upton MD, PhD CLIA Number: [id number] Iron 08/02/2024 45 35 - 150 ug/dL Final UIBC 08/02/2024 354 110 - 370 ug/dL Final TIBC 08/02/2024 399 240 - 445 ug/dL Final % Saturation 08/02/2024 11 (L) 25 - 45 % Final Ferritin 08/02/2024 71 8 - 150 ng/mL Final Lab on 06/13/2024 Component Date Value Ref Range Status Albumin, Urine Random 06/13/2024 1,587.3 Not established mg/L Final Creatinine, Urine Random 06/13/2024 67.3 20.0 - 320.0 mg/dL Final Albumin/Creatinine Ratio 06/13/2024 2,358.5 (H) <30.0 ug/mg Creat Final Glucose 06/13/2024 137 (H) 74 - 99 mg/dL Final Sodium 06/13/2024 137 136 - 145 mmol/L Final Potassium 06/13/2024 4.6 3.5 - 5.3 mmol/L Final Chloride 06/13/2024 103 98 - 107 mmol/L Final Bicarbonate 06/13/2024 22 21 - 32 mmol/L Final Anion Gap 06/13/2024 17 10 - 20 mmol/L Final Urea Nitrogen 06/13/2024 16 6 - 23 mg/dL Final Creatinine 06/13/2024 1.03 0.50 - 1.05 mg/dL Final eGFR 06/13/2024 56 (L) >60 mL/min/1.73m*2 Final Calculations of estimated GFR are performed using the 2020 CKD-EPI Study Refit equation without therace variable for the IDMS-Traceable creatinine methods. https://jasn.asnjournals.org/content/early//ASN.4619939630 Calcium 06/13/2024 8.7 8.6 - 10.6 mg/dL Final Albumin 06/13/2024 4.0 3.4 - 5.0 g/dL Final Alkaline Phosphatase 06/13/2024 49 33 - 136 U/L Final Total Protein 06/13/2024 6.2 (L) 6.4 - 8.2 g/dL Final AST 06/13/2024 23 9 - 39 U/L Final Bilirubin, Total 06/13/2024 0.5 0.0 - 1.2 mg/dL Final ALT 06/13/2024 36 7 - 45 U/L Final Patients treated with Sulfasalazine may generate falsely decreased results for ALT. Hemoglobin A1C 06/13/2024 5.5 See comment % Final Estimated Average Glucose 06/13/2024 111 Not Established mg/dL Final WBC 06/13/2024 5.3 4.4 - 11.3 x10*3/uL Final nRBC 06/13/2024 0.0 0.0 - 0.0 /100 WBCs Final RBC 06/13/2024 3.35 (L) 4.00 - 5.20 x10*6/uL Final Hemoglobin 06/13/2024 9.7 (L) 12.0 - 16.0 g/dL Final Hematocrit 06/13/2024 30.8 (L) 36.0 - 46.0 % Final MCV 06/13/2024 92 80 - 100 fL Final MCH 06/13/2024 29.0 26.0 - 34.0 pg Final MCHC 06/13/2024 31.5 (L) 32.0 - 36.0 g/dL Final RDW 06/13/2024 13.0 11.5 - 14.5 % Final Platelets 06/13/2024 204 150 - 450 x10*3/uL Final Neutrophils % 06/13/2024 74.1 40.0 - 80.0 % Final Immature Granulocytes %, Automated 06/13/2024 0.4 0.0 - 0.9 % Final Immature Granulocyte Count (IG) includes promyelocytes, myelocytes and metamyelocytes but does not include bands. Percent differential counts (%) should be interpreted in the context of the absolute cell counts (cells/UL). Lymphocytes % 06/13/2024 14.1 13.0 - 44.0 % Final Monocytes % 06/13/2024 7.7 2.0 - 10.0 % Final Eosinophils % 06/13/2024 2.4 0.0 - 6.0 % Final Basophils % 06/13/2024 1.3 0.0 - 2.0 % Final Neutrophils Absolute 06/13/2024 3.93 1.60 - 5.50 x10*3/uL Final Percent differential counts (%) should be interpreted in the context of the absolute cell counts (cells/uL). Immature Granulocytes Absolute, Au* 06/13/2024 0.02 0.00 - 0.50 x10*3/uL Final Lymphocytes Absolute 06/13/2024 0.75 (L) 0.80 - 3.00 x10*3/uL Final Monocytes Absolute 06/13/2024 0.41 0.05 - 0.80 x10*3/uL Final Eosinophils Absolute 06/13/2024 0.13 0.00 - 0.40 x10*3/uL Final Basophils Absolute 06/13/2024 0.07 0.00 - 0.10 x10*3/uL Final WERO 06/13/2024 Negative Negative Final The Antinuclear Antibody (WERO) test was performed using indirect immunofluorescence assay with HEp-2 cells slide. Rheumatoid Factor 06/13/2024 <10 0 - 15 IU/mL Final Citrulline Antibody, IgG 06/13/2024 <1 <3 U/mL Final NEGATIVE < 3 U/ML POSITIVE >=3 U/ML ANCA IFA Titer 06/13/2024 <1:20 <1:20 Final ANCA IFA Pattern 06/13/2024 None Detected None Detected Final INTERPRETIVE INFORMATION: ANCA IFA Pattern Neutrophil Cytoplasmic Antibodies (C-ANCA = granular cytoplasmic staining, P-ANCA = perinuclear staining) are found in the serum of over 90 percent of patients with certain necrotizing systemic vasculitides, and usually in less than 5 percent of patients with collagen vascular disease or arthritis. Performed By: [facility] [address] [place] [address] Needle Punch Operator: Rosalee Upton MD, PhD CLIA Number: [id number] SSA-52 (Ro52) (YOCASTA) Antibody, IgG 06/13/2024 2 0 - 40 AU/mL Final INTERPRETIVE INFORMATION: SSA-52 (Ro52) (YOCASTA) Antibody, IgG 29 AU/mL or Less ............. Negative 30 - 40 AU/mL ................ Equivocal 41 AU/mL or Greater .......... Positive SSA-52 (Ro52) and/or SSA-60 (Ro60) antibodies are associated with a diagnosis of Sjogren syndrome, systemic lupus erythematosus (SLE), and systemic sclerosis. SSA-52 antibody overlaps significantly with the major SSc-related antibodies. SSA-52 (Ro52) antibody occurs frequently in patients with inflammatory myopathies, often in the presence of interstitial lung disease. SSA-60 (Ro60) (YOCASTA) Antibody, IgG 06/13/2024 0 0 - 40 AU/mL Final REFERENCE INTERVAL: SSA-60 (Ro60) (YOCASTA) Antibody, IgG 29 AU/mL or Less ............. Negative 30 - 40 AU/mL ................ Equivocal 41 AU/mL or Greater .......... Positive Shannon/CUFF TURNER MACHINE OPERATOR (YOCASTA) Ab, IgG 06/13/2024 2 0 - 19 Units Final INTERPRETIVE INFORMATION: Shannon/CUFF TURNER MACHINE OPERATOR (YOCASTA) Antibody, IgG 19 Units or Less ............. Negative 20 to 39 Units ............... Weak Positive 40 to 80 Units ............... Moderate Positive 81 Units or greater .......... Strong Positive Shannon/CUFF TURNER MACHINE OPERATOR antibodies are frequently seen in patients with mixed connective tissue disease (MCTD) and are also associated with other systemic autoimmune rheumatic diseases (SARDs) such as systemic lupus erythematosus (SLE), systemic sclerosis, and myositis. Antibodies targeting the Shannon/CUFF TURNER MACHINE OPERATOR antigenic complex also recognize Shannon antigens, therefore, the Shannon antibody response must be considered when interpreting these results. Neelima-1 (Histidyl-tRNA Synthetase) Ab* 06/13/2024 1 0 - 40 AU/mL Final INTERPRETIVE INFORMATION: Neelima-1 Antibody, IgG 29 AU/mL or less.........Negative 30-40 AU/mL..............Equivocal 41 AU/mL or greater......Positive Presence of Neelima-1 (antihistidyl transfer RNA [t-RNA] synthetase) antibody is associated with polymyositis and may also be seen in patients with dermatomyositis. Neelima-1 antibody is associated with pulmonary involvement (interstitial lung disease), Raynaud phenomenon, arthritis, and motorboat mechanic helper's hands (implicated in antisynthetase syndrome). PL-12 (alanyl-tRNA synthetase) Ant* 06/13/[address]-7 (threonyl-tRNA synthetase) An* 06/13/2024 Negative Negative Final EJ (glycyl-tRNA synthetase) Antibo* 06/13/2024 Negative Negative Final OJ (isoleucyl-tRNA synthetase) Ant* 06/13/2024 Negative Negative Final SRP (Signal Recognition Particle) * 06/13/2024 Negative Negative Final Ku Antibody 06/13/2024 Negative Negative Final PM/Scl 100 Antibody, IgG 06/13/2024 Negative Negative Final INTERPRETIVE INFORMATION: PM/Scl-100 Antibody, IgG by Immunoblot The presence of PM/Scl-100 IgG antibody along with a positive WERO IFA nucleolar pattern is associated with connective tissue diseases such as polymyositis (PM), dermatomyositis (DM), systemic sclerosis (SSc), and polymyositis/systemic sclerosis overlap syndrome. The clinical relevance of PM/Scl-100 IgG antibody with a negative WERO IFA nucleolar pattern is unknown. PM/Scl-100 is the main target epitope of the PM/Scl complex, although antibodies to other targets not detected by this assay may occur. This test was developed and its performance characteristics determined by [facility]. It has not been cleared or approved by the US Food and Drug Administration. This test was performed in a CLIA certified laboratory and is intended for clinical purposes. Fibrillarin (U3 CUFF TURNER MACHINE OPERATOR) Ab, IgG 06/13/2024 Negative Negative Final Comment: Interpretive Information: Fibrillarin (U3 CUFF TURNER MACHINE OPERATOR) Antibody, IgG The presence of fibrillarin (U3-CUFF TURNER MACHINE OPERATOR) IgG antibodies in association with an WERO IFA nucleolar pattern is suggestive of systemic sclerosis (SSc). In SSc, these antibodies are associated with distinct clinical features, such as younger age at disease onset, frequent internal organ involvement (pulmonary hypertension, myositis and renal disease). Fibrillarin antibodies are detected more frequently in patients with SSc compared to other ethnic groups. Strong correlation with WERO IFA results is recommended. In a multi-ethnic cohort of SSc patients (n=98), U3-CUFF TURNER MACHINE OPERATOR antibodies detected by immunoblot had an agreement of 98.9 percent with the gold standard immunoprecipitation (IP) assay. Approximately 71 percent (5/7) of the borderline U3-CUFF TURNER MACHINE OPERATOR results with WERO nucleolar pattern in this cohort were IP negative. This test was developed and its performance characteristics determined by [facility]. It has not been cleared or approved by the US Food and Drug Administration. This test was performed in a CLIA certified laboratory and is intended for clinical purposes. Performed By: [facility] [address] [place] [address] Needle Punch Operator: Rosalee Upton MD, PhD CLIA Number: [id number] Mi-2 (nuclear helicase protein) An* 06/13/2024 Negative Negative Final P155/140 Antibody 06/13/2024 Negative Negative Final TIF-1 gamma (155 kDa) Ab 06/13/2024 Negative Negative Final SAE1 (SUMO activating enzyme) Ab 06/13/2024 Negative Negative Final MDA5 (CADM-140) Ab 06/13/2024 Negative Negative Final NXP2 (Nuclear matrix protein-2) Ab 06/13/2024 Negative Negative Final Myositis Panel Interpretive Data 06/13/2024 See Note Final Comment: INTERPRETIVE INFORMATION: Extended Myositis Panel If present, myositis-specific antibodies (MSA) are specific for myositis, and may be useful in establishing diagnosis as well as prognosis. MSAs are generally regarded as mutually exclusive with rare exceptions; the occurrence of two or more MSAs should be carefully evaluated in the context of patient's clinical presentation. Myositis-associated antibodies (MAA) may be found in patients with CTD including overlap syndromes, and are generally not specific for myositis. The following table will help in identifying the association of any antibodies found as either MSAs or Willa. Antibody Specificity . . . . . . . . . . . . MSA . . . . MAA SSA 52 (Ro) (YOCASTA) Antibody IgG . . . . . . . . . . . . . X SSA 60 (Ro) (YOCASTA) Antibody IgG . . . . . . . . . . . . . X Shannon/CUFF TURNER MACHINE OPERATOR (YOCASTA) Ab, IgG . . . . . . . . . . . . . . . . X Neelima-1 (histidyl-tRNA synthetase) Ab, IgG . . X PL-12 (alanyl-tRNA synthetase) Antibody . . X PL-7 (threonyl-tRNA synthetase) Antibody . . X EJ (glycyl-tRNA synthetase) Antibody . . . . X OJ (isoleucyl-tRNA synthetase) Antibody . . X SRP (Signal Recognition Particle) Ab . . . . X Ku Antibody . . . . . . . . . . . . . . . . . . . . . . X PM/SCL 100 Antibody, IgG . . . . . . . . . . . . . . . . X Fibrillarin (U3 CUFF TURNER MACHINE OPERATOR) Ab, IgG . . . . . . . . . . . . . . X Mi-2 (nuclear helicase protein) Antibody . . X P155/140 Antibody . . . . . . . . . . . . . X TIF-1 gamma (155 kDa) Ab . . . . . . . . . . X SAE1 (SUMO activating enzyme) Ab . . . . . . X MDA5 (CADM-140) Ab . . . . . . . . . . . . X NXP2 (Nuclear matrix proten-2)Ab . . . . . . X This test was developed and its performance characteristics determined by [facility]. It has not been cleared or approved by the US Food and Drug Administration. This test was performed in a CLIA certified laboratory and is intended for clinical purposes. Aspergillus fumigatus #1 Ab, Preci* 06/13/2024 None Detected None Detected Final Aspergillus fumigatus #6 Ab, Preci* 06/13/2024 None Detected None Detected Final Aureobasidium pullulans Ab, Precip* 06/13/2024 None Detected None Detected Final [place] Serum Ab, Precipitin 06/13/2024 None Detected None Detected Final Micropolyspora Faeni Ab, Precipitin 06/13/2024 None Detected None Detected Final Testing includes antibodies directed at Aureobasidium pullulans, Aspergillus fumigatus #1, Aspergillus fumigatus #6, Micropolyspora faeni, and [place] Serum. Performed By: [facility] [address] [place] [id number] Needle Punch Operator: Rosalee Upton MD, PhD CLIA Number: [id number] Anti-SSA 06/13/2024 <0.2 <1.0 AI Final < 1.0 = NEGATIVE >=1.0 = POSITIVE Anti-SSB 06/13/2024 <0.2 <1.0 AI Final < 1.0 = NEGATIVE >=1.0 = POSITIVE Lab on 05/02/2024 Component Date Value Ref Range Status Glucose 05/02/2024 117 (H) 74 - 99 mg/dL Final Sodium 05/02/2024 139 136 - 145 mmol/L Final Potassium 05/02/2024 4.4 3.5 - 5.3 mmol/L Final Chloride 05/02/2024 105 98 - 107 mmol/L Final Bicarbonate 05/02/2024 24 21 - 32 mmol/L Final Anion Gap 05/02/2024 14 10 - 20 mmol/L Final Urea Nitrogen 05/02/2024 20 6 - 23 mg/dL Final Creatinine 05/02/2024 1.13 (H) 0.50 - 1.05 mg/dL Final eGFR 05/02/2024 50 (L) >60 mL/min/1.73m*2 Final Calculations of estimated GFR are performed using the 2020 CKD-EPI Study Refit equation without therace variable for the IDMS-Traceable creatinine methods. https://jasn.asnjournals.org/content/early//ASN.6007454730 Calcium 05/02/2024 8.8 8.6 - 10.6 mg/dL Final Phosphorus 05/02/2024 4.2 2.5 - 4.9 mg/dL Final The performance characteristics of phosphorus testing in heparinized plasma have been validated by the individual laboratory site where testing is performed. Testing on heparinized plasma is not approved by the FDA; however, such approval is not necessary. Albumin 05/02/2024 3.8 3.4 - 5.0 g/dL Final Lab on 04/19/2024 Component Date Value Ref Range Status Glucose 04/19/2024 91 74 - 99 mg/dL Final Sodium 04/19/2024 137 136 - 145 mmol/L Final Potassium 04/19/2024 4.9 3.5 - 5.3 mmol/L Final Chloride 04/19/2024 104 98 - 107 mmol/L Final Bicarbonate 04/19/2024 22 21 - 32 mmol/L Final Anion Gap 04/19/2024 16 10 - 20 mmol/L Final Urea Nitrogen 04/19/2024 14 6 - 23 mg/dL Final Creatinine 04/19/2024 1.08 (H) 0.50 - 1.05 mg/dL Final eGFR 04/19/2024 53 (L) >60 mL/min/1.73m*2 Final Calculations of estimated GFR are performed using the 2020 CKD-EPI Study Refit equation without therace variable for the IDMS-Traceable creatinine methods. https://jasn.asnjournals.org/content/early//ASN.8623044882 Calcium 04/19/2024 8.7 8.6 - 10.6 mg/dL Final Albumin 04/19/2024 3.9 3.4 - 5.0 g/dL Final Alkaline Phosphatase 04/19/2024 53 33 - 136 U/L Final Total Protein 04/19/2024 6.2 (L) 6.4 - 8.2 g/dL Final AST 04/19/2024 33 9 - 39 U/L Final Bilirubin, Total 04/19/2024 0.4 0.0 - 1.2 mg/dL Final ALT 04/19/2024 48 (H) 7 - 45 U/L Final Patients treated with Sulfasalazine may generate falsely decreased results for ALT. WBC 04/19/2024 7.0 4.4 - 11.3 x10*3/uL Final nRBC 04/19/2024 0.0 0.0 - 0.0 /100 WBCs Final RBC 04/19/2024 3.12 (L) 4.00 - 5.20 x10*6/uL Final Hemoglobin 04/19/2024 9.4 (L) 12.0 - 16.0 g/dL Final Hematocrit 04/19/2024 31.6 (L) 36.0 - 46.0 % Final MCV 04/19/2024 101 (H) 80 - 100 fL Final MCH 04/19/2024 30.1 26.0 - 34.0 pg Final MCHC 04/19/2024 29.7 (L) 32.0 - 36.0 g/dL Final RDW 04/19/2024 13.6 11.5 - 14.5 % Final Platelets 04/19/2024 241 150 - 450 x10*3/uL Final Lab on 03/31/2024 Component Date Value Ref Range Status Glucose 03/31/2024 148 (H) 74 - 99 mg/dL Final Sodium 03/31/2024 137 136 - 145 mmol/L Final Potassium 03/31/2024 4.8 3.5 - 5.3 mmol/L Final Chloride 03/31/2024 106 98 - 107 mmol/L Final Bicarbonate 03/31/2024 20 (L) 21 - 32 mmol/L Final Anion Gap 03/31/2024 16 10 - 20 mmol/L Final Urea Nitrogen 03/31/2024 20 6 - 23 mg/dL Final Creatinine 03/31/2024 1.37 (H) 0.50 - 1.05 mg/dL Final eGFR 03/31/2024 40 (L) >60 mL/min/1.73m*2 Final Calculations of estimated GFR are performed using the 2020 CKD-EPI Study Refit equation without therace variable for the IDMS-Traceable creatinine methods. https://jasn.asnjournals.org/content///ASN.2647945789 Calcium 03/31/2024 9.0 8.6 - 10.6 mg/dL Final Albumin 03/31/2024 3.6 3.4 - 5.0 g/dL Final Alkaline Phosphatase 03/31/2024 44 33 - 136 U/L Final Total Protein 03/31/2024 5.6 (L) 6.4 - 8.2 g/dL Final AST 03/31/2024 21 9 - 39 U/L Final Bilirubin, Total 03/31/2024 0.3 0.0 - 1.2 mg/dL Final ALT 03/31/2024 26 7 - 45 U/L Final Patients treated with Sulfasalazine may generate falsely decreased results for ALT. Lab on 03/10/2024 Component Date Value Ref Range Status Glucose 03/10/2024 90 74 - 99 mg/dL Final Sodium 03/10/2024 139 136 - 145 mmol/L Final Potassium 03/10/2024 4.5 3.5 - 5.3 mmol/L Final Chloride 03/10/2024 102 98 - 107 mmol/L Final Bicarbonate 03/10/2024 23 21 - 32 mmol/L Final Anion Gap 03/10/2024 19 10 - 20 mmol/L Final Urea Nitrogen 03/10/2024 28 (H) 6 - 23 mg/dL Final Creatinine 03/10/2024 1.27 (H) 0.50 - 1.05 mg/dL Final eGFR 03/10/2024 43 (L) >60 mL/min/1.73m*2 Final Calculations of estimated GFR are performed using the 2020 CKD-EPI Study Refit equation without therace variable for the IDMS-Traceable creatinine methods. https://jasn.asnjournals.org/content/early/ASN.4777140917 Calcium 03/10/2024 9.3 8.6 - 10.6 mg/dL Final Albumin 03/10/2024 3.9 3.4 - 5.0 g/dL Final Alkaline Phosphatase 03/10/2024 68 33 - 136 U/L Final Total Protein 03/10/2024 6.0 (L) 6.4 - 8.2 g/dL Final AST 03/10/2024 35 9 - 39 U/L Final Bilirubin, Total 03/10/2024 0.4 0.0 - 1.2 mg/dL Final ALT 03/10/2024 198 (H) 7 - 45 U/L Final Patients treated with Sulfasalazine may generate falsely decreased results for ALT. Lab on 03/07/2024 Component Date Value Ref Range Status Glucose 03/07/2024 135 (H) 74 - 99 mg/dL Final Sodium 03/07/2024 136 136 - 145 mmol/L Final Potassium 03/07/2024 4.8 3.5 - 5.3 mmol/L Final Chloride 03/07/2024 102 98 - 107 mmol/L Final Bicarbonate 03/07/2024 24 21 - 32 mmol/L Final Anion Gap 03/07/2024 15 10 - 20 mmol/L Final Urea Nitrogen 03/07/2024 28 (H) 6 - 23 mg/dL Final Creatinine 03/07/2024 1.24 (H) 0.50 - 1.05 mg/dL Final eGFR 03/07/2024 45 (L) >60 mL/min/1.73m*2 Final Calculations of estimated GFR are performed using the 2020 CKD-EPI Study Refit equation without therace variable for the IDMS-Traceable creatinine methods. https://jasn.asnjournals.org/content/early/ASN.7020090198 Calcium 03/07/2024 9.3 8.6 - 10.6 mg/dL Final Albumin 03/07/2024 3.6 3.4 - 5.0 g/dL Final Alkaline Phosphatase 03/07/2024 74 33 - 136 U/L Final Total Protein 03/07/2024 5.7 (L) 6.4 - 8.2 g/dL Final AST 03/07/2024 28 9 - 39 U/L Final Bilirubin, Total 03/07/2024 0.5 0.0 - 1.2 mg/dL Final ALT 03/07/2024 389 (H) 7 - 45 U/L Final Patients treated with Sulfasalazine may generate falsely decreased results for ALT. Albumin, Urine Random 03/07/2024 692.9 Not established mg/L Final Creatinine, Urine Random 03/07/2024 49.1 20.0 - 320.0 mg/dL Final Albumin/Creatinine Ratio 03/07/2024 1,411.2 (H) <30.0 ug/mg Creat Final Total Protein 03/07/2024 5.7 (L) 6.4 - 8.2 g/dL Final Albumin 03/07/2024 3.4 3.4 - 5.0 g/dL Final Alpha 1 Globulin 03/07/2024 0.3 0.2 - 0.6 g/dL Final Alpha 2 Globulin 03/07/2024 0.8 0.4 - 1.1 g/dL Final Beta Globulin 03/07/2024 0.6 0.5 - 1.2 g/dL Final Gamma 03/07/2024 0.6 0.5 - 1.4 g/dL Final Protein Electrophoresis Comment 03/07/2024 Normal. Final Immunofixation Comment 03/07/2024 No monoclonal protein detected by immunofixation. Final Path Review - Serum Protein Electr* 03/07/2024 Reviewed and approved by AGUSTIN STERLING on 03/09/24 at 8:24 PM. Final Path Review - Serum Immunofixation 03/07/2024 Reviewed and approved by AGUSTIN STERLING on 03/09/24 at8:24 PM. Final Total Protein, Urine Random 03/07/2024 99 (H) 5 - 25 mg/dL Final Albumin % 03/07/2024 84.5 % Final Alpha 1 Globulin % 03/07/2024 1.9 % Final Alpha 2 Globulin % 03/07/2024 3.6 % Final Beta Globulin % 03/07/2024 5.6 % Final Gamma Globulin % 03/07/2024 4.4 % Final Urine Electrophoresis Comment 03/07/2024 Marked proteinuria. No monoclonal protein detected. Final Path Review-Urine Protein Electrop* 03/07/2024 Reviewed and approved by AGUSTIN STERLING on 03/09/24 at 7:44 PM. Final Phosphorus 03/07/2024 4.1 2.5 - 4.9 mg/dL Final The performance characteristics of phosphorus testing in heparinized plasma have been validated by the individual laboratory site where testing is performed. Testing on heparinized plasma is not approved by the FDA; however, such approval is not necessary. Lab on 02/01/2024 Component Date Value Ref Range Status BNP 02/01/2024 700 (H) 0 - 99 pg/mL Final Glucose 02/01/2024 112 (H) 74 - 99 mg/dL Final Sodium 02/01/2024 138 136 - 145 mmol/L Final Potassium 02/01/2024 4.9 3.5 - 5.3 mmol/L Final Chloride 02/01/2024 100 98 - 107 mmol/L Final Bicarbonate 02/01/2024 21 21 - 32 mmol/L Final Anion Gap 02/01/2024 22 (H) 10 - 20 mmol/L Final Urea Nitrogen 02/01/2024 15 6 - 23 mg/dL Final Creatinine 02/01/2024 0.95 0.50 - 1.05 mg/dL Final eGFR 02/01/2024 61 >60 mL/min/1.73m*2 Final Calculations of estimated GFR are performed using the 2020 CKD-EPI Study Refit equation without therace variable for the IDMS-Traceable creatinine methods. https://jasn.asnjournals.org/content/early//ASN.6918181326 Calcium 02/01/2024 9.4 8.6 - 10.6 mg/dL Final Albumin 02/01/2024 3.6 3.4 - 5.0 g/dL Final Alkaline Phosphatase 02/01/2024 47 33 - 136 U/L Final Total Protein 02/01/2024 5.8 (L) 6.4 - 8.2 g/dL Final AST 02/01/2024 13 9 - 39 U/L Final Bilirubin, Total 02/01/2024 0.7 0.0 - 1.2 mg/dL Final ALT 02/01/2024 24 7 - 45 U/L Final Patients treated with Sulfasalazine may generate falsely decreased results for ALT. Lab on 01/27/2024 Component Date Value Ref Range Status Glucose 01/27/2024 179 (H) 74 - 99 mg/dL Final Sodium 01/27/2024 133 (L) 136 - 145 mmol/L Final Potassium 01/27/2024 4.8 3.5 - 5.3 mmol/L Final Chloride 01/27/2024 98 98 - 107 mmol/L Final Bicarbonate 01/27/2024 23 21 - 32 mmol/L Final Anion Gap 01/27/2024 17 10 - 20 mmol/L Final Urea Nitrogen 01/27/2024 19 6 - 23 mg/dL Final Creatinine 01/27/2024 0.89 0.50 - 1.05 mg/dL Final eGFR 01/27/2024 66 >60 mL/min/1.73m*2 Final Calculations of estimated GFR are performed using the 2020 CKD-EPI Study Refit equation without therace variable for the IDMS-Traceable creatinine methods. https://jasn.asnjournals.org/content/early/ASN.2180929459 Calcium 01/27/2024 9.0 8.6 - 10.6 mg/dL Final Phosphorus 01/27/2024 4.2 2.5 - 4.9 mg/dL Final The performance characteristics of phosphorus testing in heparinized plasma have been validated by the individual laboratory site where testing is performed. Testing on heparinized plasma is not approved by the FDA; however, such approval is not necessary. Albumin 01/27/2024 3.6 3.4 - 5.0 g/dL Final Total Protein, Urine Random 01/27/2024 299 (H) 5 - 24 mg/dL Final Creatinine, Urine Random 01/27/2024 80.9 20.0 - 320.0 mg/dL Final T. Protein/Creatinine Ratio 01/27/2024 3.70 (H) 0.00 - 0.17 mg/mg Creat Final WBC 01/27/2024 12.8 (H) 4.4 - 11.3 x10*3/uL Final nRBC 01/27/2024 0.0 0.0 - 0.0 /100 WBCs Final RBC 01/27/2024 3.33 (L) 4.00 - 5.20 x10*6/uL Final Hemoglobin 01/27/2024 10.3 (L) 12.0 - 16.0 g/dL Final Hematocrit 01/27/2024 32.9 (L) 36.0 - 46.0 % Final MCV 01/27/2024 99 80 - 100 fL Final MCH 01/27/2024 30.9 26.0 - 34.0 pg Final MCHC 01/27/2024 31.3 (L) 32.0 - 36.0 g/dL Final RDW 01/27/2024 14.8 (H) 11.5 - 14.5 % Final Platelets 01/27/2024 334 150 - 450 x10*3/uL Final Neutrophils % 01/27/2024 86.3 40.0 - 80.0 % Final Immature Granulocytes %, Automated 01/27/2024 1.3 (H) 0.0 - 0.9 % Final Immature Granulocyte Count (IG) includes promyelocytes, myelocytes and metamyelocytes but does not include bands. Percent differential counts (%) should be interpreted in the context of the absolute cell counts (cells/UL). Lymphocytes % 01/27/2024 4.0 13.0 - 44.0 % Final Monocytes % 01/27/2024 7.6 2.0 - 10.0 % Final Eosinophils % 01/27/2024 0.4 0.0 - 6.0 % Final Basophils % 01/27/2024 0.4 0.0 - 2.0 % Final Neutrophils Absolute 01/27/2024 11.07 (H) 1.60 - 5.50 x10*3/uL Final Percent differential counts (%) should be interpreted in the context of the absolute cell counts (cells/uL). Immature Granulocytes Absolute, Au* 01/27/2024 0.17 0.00 - 0.50 x10*3/uL Final Lymphocytes Absolute 01/27/2024 0.51 (L) 0.80 - 3.00 x10*3/uL Final Monocytes Absolute 01/27/2024 0.98 (H) 0.05 - 0.80 x10*3/uL Final Eosinophils Absolute 01/27/2024 0.05 0.00 - 0.40 x10*3/uL Final Basophils Absolute 01/27/2024 0.05 0.00 - 0.10 x10*3/uL Final Lab on 01/08/2024 Component Date Value Ref Range Status Hemoglobin A1C 01/08/2024 7.7 (H) see below % Final Estimated Average Glucose 01/08/2024 174 Not Established mg/dL Final There may be more visits with results that are not included. Current Outpatient Medications on File Prior to Visit Medication Sig Dispense Refill albuterol 90 mcg/actuation inhaler Inhale 2 puffs every 4 hours if needed. amLODIPine (Norvasc) 2.5 mg tablet Take 1 tablet (2.5 mg) by mouth early in the morning.. apixaban (Eliquis) 5 mg tablet Take 1 tablet (5 mg) by mouth twice a day. atovaquone (Mepron) 750 mg/5 mL suspension Take 10 mL (1,500 mg) by mouth once daily. blood sugar diagnostic (Contour Next Test Strips) strip 1 each 2 times a day. 200 strip 1 carvedilol (Coreg) 25 mg tablet Take 0.5 tablets (12.5 mg) by mouth 2 times daily (morning and lateafternoon). cholecalciferol (Vitamin D-3) 50 MCG (2000 UT) tablet Take 2 tablets (4,000 Units) by mouth once daily. clindamycin (Cleocin T) 1 % lotion twice a day. Apply sparingly and massage in cyanocobalamin (Vitamin B-12) 1,000 mcg tablet Take 1 tablet (1,000 mcg) by mouth once daily. ezetimibe (Zetia) 10 mg tablet Take 1 tablet (10 mg) by mouth once daily. finerenone (Kerendia) 10 mg tablet tablet Take 1 tablet (10 mg) by mouth once daily. 90 tablet 3 fluocinonide (Lidex) 0.05 % external solution 1 (one) time each day. Apply to affected areas furosemide (Lasix) 20 mg tablet Take 1 tablet (20 mg) by mouth once daily as needed (swelling). guaiFENesin (Mucinex) 600 mg 12 hr tablet Take 2 tablets (1,200 mg) by mouth 2 times a day. Do not crush, chew, or split. icosapent ethyL (Vascepa) 1 gram capsule Take 2 capsules (2 g) by mouth twice a day. lansoprazole (Prevacid) [address] capsule TAKE 1 CAPSULE BY MOUTH ONCE DAILY. 90 capsule 3 linagliptin-metformin (Jentadueto XR) 2.5-1,000 mg tablet, IR - ER, biphasic 24hr Take 2 tablets bymouth once daily. 180 tablet 3 losartan (Cozaar) 100 mg tablet TAKE 1 TABLET BY MOUTH ONCE DAILY. 90 tablet 3 multivit,calc,mins/iron/folic (ONE-A-DAY WOMENS FORMULA ORAL) Take 1 tablet by mouth once daily. predniSONE (Deltasone) 20 mg tablet Take 3 tablets (60 mg) by mouth once daily. rosuvastatin (Crestor) 10 mg tablet TAKE 1 TABLET BY MOUTH ONCE DAILY. 90 tablet 3 sertraline (Zoloft) 25 mg tablet Take 1 tablet (25 mg) by mouth once daily. tiotropium (Spiriva Respimat) 2.5 mcg/actuation inhaler Inhale 2 puffs once daily. 12 g 3 No current facility-administered medications on file prior to visit. No images are attached to the encounter. 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 Patient to follow-up with cardiology 2. We will discuss follow-up on pleural effusions 3. Patient to call for questions or concerns [facility] Phone: [phone] [phone] Telephone encounter Note* Telephone Encounter - Sravani Vaughan RN - 09/08/2024 7:58 AM EST Images from the original note were not included. Per [facility], they are not able to provide financial assistance for CereScan. Diane Talley CPhT to Harrison Guerra RN KW 09/07/24 2:35 PM Unfortunately we are not able to offer assistance for that medication This RN contacted [employer], ([phone]) heater furnace for Atovaquone and spoke withAngie singh. She advised they currently do not have a co-pay plan or patient financial assistance for this medication. [employer] has savings coupon for [facility] for 163.10 [employer] has coupon for [facility] for 122.22 This RN contacted patient to update her. Patient will pull up coupons and call [facility] pharmacy near her to ensure they have medication and will accept coupons then she will call back to advise which pharmacy to send new script to if able. Stephanie Arana, DO Sravani Vaughan RN Would you be able to assist this patient with financial assistance for her atovaquone? She already receives some medication assistance through [employer], but will need the atovaquone added as it is several hundred dollars copay. Just wasn't sure how we can get that added. Thank you! [id number] Miscellaneous Notes* Telephone Encounter - Sravani Vaughan RN - 09/08/2024 7:58 AM EST Images from the original note were not included. Per [facility], they are not able to provide financial assistance for Atovaquone. 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 She advised they currently do not have a co-pay plan or patient financial assistance for this medication. [facility] [employer] has savings coupon for [facility] for 163.10 [employer] has coupon for [facility] for 122.22 This RN contacted patient to update her. Patient will pull up coupons and call [facility] pharmacy near her to ensure they have medication and will accept coupons then she will call back to advise which pharmacy to send new script to if able. DO Sravani Silver RN Would you be able to assist this patient with financial assistance for her atovaquone? She already receives some medication assistance through [employer], but will need the atovaquone added as it is several hundred dollars copay. Just wasn't sure how we can get that added. Thank you! documented in this [facility]01-22-2025 History of Present illness Narrative* Stephanie Arana DO - 09/07/2024 10:30 AM EST [facility] [place] [address] [place] [address] Pulmonary Patient Visit 09/07/2024 Referring Physician: CELIA AL DO Reason for Referral: Lung Nodules 09/29/23 History of Present Illness Rolando Peters is a 79 y.o. female with history of stage I triple negative breast cancer s/p left mastectomy 05/2011, right-sided breast cancer s/p mastectomy 06/1994 s/p adjuvant chemo/tamoxifen, CKD who presented for evaluation of multiple PET avid pulmonary nodules. Patient reported she follows with oncology Dr. Marcus. Stated that she was referred to Dr. Marcus as she has had progressive weightloss, about 50 pounds since 07/2022. Admitted to a chronic mostly nonproductive cough and postnasaldrip. Reported progressive CRUZ with stairs, denied any shortness of breath at rest. Stated she was diagnosed with exercise-induced asthma several years ago, has an albuterol inhaler which she rarely requires. Denied any hemoptysis, chest pain, night sweats. Initially diagnosed with INGA in 2007, completed PSG and prescribed CPAP with nasal mask, but has not been compliant. 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 Procedure complicated by pneumothorax requiring chest tube. Patient reports feeling well since being discharged. Admitted to blood- tinged sputum postprocedure which has since resolved. Admitted to chronic CRUZ with stairs, denied any shortness of breath at rest, chest pain. 12/04/23 Currently on prednisone 30mg until next week. Stated that she has some sinus drainage due to seasonal allergies, but that her cough has resolved. Was started on Spiriva and noticed improvement of wheezing except on the day that she forgot to take it. Denies any fevers, chills. 03/11/2024 Patient reported that she was hospitalized in January for A-fib with RVR and HFpEF exacerbation. Just completing her steroid taper. Now feeling improved from a respiratory standpoint. Denied any shortness of breath, CRUZ, wheezing, chest tightness. Admitted to some rhinorrhea and postnasal drip. 08/19/24 Patient reported worsening respiratory symptoms including increased dyspnea on exertion and worsening nonproductive cough. Using albuterol more often, 2-3 times daily with her Spiriva. Denied any fevers, chills, unintentional weight loss. 09/07/24 Restarted on prednisone at last visit. Patient was hospitalized last week for worsening CRUZ and chest pain. Infectious evaluation was negative. S/p R thoracentesis with 450 ml clear red fluid removedwith improvement of dyspnea. Discharged on daily lasix. Stated that her breathing is now back to baseline. PastMedical History Past Medical History: Diagnosis Date Arrhythmia Arthritis Asthma Breast cancer (HCC) 1993 Right Breast(Mastectomy) Breast cancer (HCC) 2010 Left Breast(Simple Mastectomy, SLND) Chronic kidney disease COPD (chronic obstructive pulmonary disease) (HCC) Coronary artery disease Diabetes (HCC) Emphysema of lung (HCC) Within last year GERD (gastroesophageal reflux disease) High blood pressure Lung nodule -2022 Occlusion and stenosis of unspecified carotid artery Pure hypercholesterolemia Syncope and collapse 08/29/2022 Past Surgical History Past Surgical History: Procedure Laterality Date BRONCHOSCOPY CARDIAC ELECTROPHYSIOLOGY PROCEDURE N/A 05/05/2024 Performed by Walt Leigh MD at [facility] Cardiac Cath/EP Lab CAROTID ENDARTERECTOMY Right 2008 CATARACT EXTRACTION Bilateral 2006 CHEST TUBE INSERTION Right 10/05/2023 HC ENDOBRONCHIAL ULTRASOUND EBUS (HISTORICAL) 10/05/2023 LUNG BIOPSY MASTECTOMY Left 2010 simple/reconstruction/gingivagrapht MASTECTOMY Right 1993 reconstruction (TRAM) TOTAL ABDOMINAL HYSTERECTOMY W/ BILATERAL SALPINGOOPHORECTOMY 1998 TUBAL LIGATION 1979 Allergies Allergies Allergen Reactions Isosulfan Blue Anaphylaxis Methylene Blue Sulfa Antibiotics Rash Medications Medication Documentation Review Audit Reviewed by Maite Low RN (Registered Nurse) on 08/27/24 at 1518 Medication Order Taking? Sig Documenting Provider Last Dose Status albuterol (Ventolin HFA) 108 (90 Base) MCG/ACT inhaler [id number] Inhale 2 puffs every 4 hours as needed for wheezing or shortness of breath. Stephanie Wren, Active apixaban (Eliquis) 5 MG tablet [id number] Take 1 tablet (5 mg) by mouth 2 times daily. SUJATA Enamorado CNP Active atovaquone (Mepron) 750 MG/5ML suspension [id number] Take 10 mL (1,500 mg) by mouth daily. Stephanie Arana DO Active carvedilol (Coreg) 12.5 MG tablet [id number] Take 1 tablet (12.5 mg) by mouth in the morning and 1 tablet (12.5 mg) in the evening. Take with meals. SUJATA Negrete CNP Active cholecalciferol (Vitamin D-3) 50 MCG (2000 UT) tablet [id number] Take 4,000 Units by mouth daily. Historical ProviderMD Active Contour Next Test test strip [id number] USE ONE strip TO test TWICE DAILY Abebe ProviderMD Active ezetimibe (Zetia) 10 MG tablet [id number] Take 1 tablet (10 mg) by mouth in the morning. SUJATA Negrete CNP Active Finerenone (Kerendia) 10 MG tablet [id number] Take 1 tablet by mouth daily. Abebe ProviderMD Active fluticasone (Cutivate) 0.05 % cream [id number] Apply topically Daily as needed (itching). Abebe Spaulding MD Active fluticasone (Flonase) 50 MCG/ACT nasal spray [id number] Administer 1 spray into each nostril daily. Shake gently. Before first use, prime pump. After use, clean tip and replace cap. Historical ProviderMD Active furosemide (Lasix) 20 MG tablet [id number] Take 1 tablet (20 mg) by mouth Daily as needed (weight gain, swelling or shortness of breath). Kristy Doran APRN - [place] Active guaiFENesin (Mucinex) 600 MG 12 hr tablet [id number] Take 1,200 mg by mouth twice a day. Historical ProviderMD Active Jentadueto XR 2.5-1000 MG per 24 hr tablet [id number] take 2 tablets by mouth once daily Historical ProviderMD Active lansoprazole (Prevacid) [address] capsule [id number] 1 capsule in the morning. Historical ProviderBRIANctive losartan (Cozaar) 100 MG tablet [id number] Take 1 tablet (100 mg) by mouth daily. Kristy Doran APRN - [place] Active Multiple Vitamins-Minerals (MULTIPLE VITAMINS/WOMENS PO) [id number] Take by mouth daily. Historical ProviderMD Active predniSONE (Deltasone) 20 MG tablet [id number] Take 3 tablets (60 mg) by mouth daily. Take 3 tablets(60 mg) daily x 14 days, then 2.5 tablets (50 mg) daily x 14 days, then 2 tablets (40 mg) daily until follow-up Stephanie Arana, Active rosuvastatin (Crestor) 10 MG tablet [id number] daily. Abebe ProviderMD Active sertraline (Zoloft) 25 MG tablet [id number] Take 1 tablet (25 mg) by mouth daily. Steven Stewart, Active tiotropium (Spiriva Respimat) 2.5 MCG/ACT inhaler [id number] Inhale 2 puffs daily. 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 Substance Use Topics Alcohol use: Yes Alcohol/week: 2.0 - 16.0 standard drinks of alcohol Types: 2 Glasses of wine per week Comment: occ FamilyHistory Family History Problem Relation Name Age of Onset Ovarian cancer Mother 66 Heart attack Father Lucita (Mother) 76 High Blood Pressure Father Lucita (Mother) Macular degeneration Father Lucita (Mother) Cancer Father Lucita (Mother) Ovarian cancer Mother's Sister 45 Other ([phone]) Son neuofibromatosis, BRCA1 positive Neurofibromatosis Son High Blood Pressure Son Cancer Son hairy cell leukemia Breast cancer Cousin 42 +brca Bladder Cancer Cousin 19 Hypertension Sister Angie Kidney disease Sister Angie Hypertension Sister Mireya Sister Kidney disease Sister Mireya Sister Review of Systems Review of Systems Constitutional: Negative. Respiratory: Positive for cough. Occasional nonproductive cough Cardiovascular: Negative. Physical Exam There were no vitals filed for this visit. Physical Exam Constitutional: Appearance: Normal appearance. Comments: Limited exam, video visit HENT: Head: Normocephalic and atraumatic. Pulmonary: Effort: Pulmonary effort is normal. Neurological: Mental Status: She is alert and oriented to person, place, and time. Labs: Available studies were reviewed Radiology: Personally reviewed and interpreted Chest CT 08/24/2023: Interval development of scattered focal consolidations in the lungs, particularly in the apical left lung lobes as discussed. Recommended short-term follow-up imaging to document resolution. Interval development of new lateral right middle lung lobe nodule with interval enlargement of other previously noted nodules as discussed. Further clinical attention and workup is warranted. Moderate pulmonary emphysema. Coronary and aortic atherosclerosis. Other chronic findings as discussed. PET/CT 09/17/23: 1 cm irregular nodular density within the lateral aspect of the right upper lobe onthe low-dose CT images demonstrates intense FDG accumulation, consistent with malignancy. A 7 mm nodular density within the anteromedial right lower lobe also demonstrates abnormal FDG accumulation, suspicious for malignancy. A streaky density within the left lower lobe on the low-dose CT images demonstrates mild FDG accumulation, less than typically expected for malignancy. A small, somewhat streaky nodular density within the medial aspect of the right lower lobe also demonstrates mild FDG uptake. There is a linear density at the posterior aspect of the left lung apex which demonstrate mild to moderate FDG accumulation which is nonspecific, however the linear configuration of this area is more suggestive of an inflammatory etiology. CT follow-up of these findings is recommended. No evidence of regional edmond or distant metastatic disease. Chest CT 11/25/23: Multiple bilateral areas of lung parenchymal abnormality and increased activity on the previous PET/CT are unchanged. There is a new 6 mm nodular density in the left upper lobe lung. Continued follow-up CT would be helpful. Chest CT 02/24/2024: 1. Interval improvement of anterior left upper lung lobe infiltrates with residual opacities still observed. Follow-up imaging to document resolution. 2. New apical right lower lung lobe and subpleural right middle lung lobe 6 mm nodules. For these nodule characteristics, Fleischner society recommends CT at 3-6 months and then at 18-24 months. 3. Coronary and aortic atherosclerosis. 4. Other chronic and postsurgical findings as discussed. Chest CT 05/27/2024: Interval development of several groundglass and solid pulmonary nodules measuring up to 2.4 cm and 9 mm respectively. In addition, increased size of several previously noted pulmonary nodules. Further clinical evaluation is warranted in this given clinical context. Interval development of right-sided pleural effusion with passive atelectasis. Coronary and aortic atherosclerosis. Other chronic and postsurgical findings as discussed. Chest CT 07/27/2024: 1. Numerous indeterminate small and clustered irregular nodularities. Some appear slightly enlarged and some slightly smaller and are indeterminate. The largest single nodularityin the right lower lobe 1.0 x 0.9 cm. Right lower lobe groundglass nodule has resolved. No new groundglass nodules. These could be infectious or inflammatory. Neoplastic etiology is felt a less likely consideration but not excluded. Recommend continued follow-up in 3-6 months. 2. Chronic moderate right pleural effusion minimally enlarged. 3. Severe atherosclerosis coronary artery, aorta and splenic artery. There is some at least mild stenosis within the upper abdominal aorta. This is incompletely evaluated without contrast. Chest CT 08/26/2024: 1. No evidence of acute aortic dissection, penetrating atherosclerotic ulcer orintramural hematoma. 2. Advanced atherosclerotic disease. Redemonstration of marked stenosis versus occlusion of the proximal right internal iliac artery. Numerous other areas of stenosis are present, as detailed above. 3. Multiple lung nodules bilaterally, posterior which are unchanged but with a worsening cluster ofnodular densities in the right lower lobe. These are indeterminate but could be due to progressive infectious/inflammatory process. However, recommend either short-term follow-up imaging in three months or tissue sampling or PET/CT as a neoplasm is not excluded. 4. Bilateral pleural effusions, greater on the right, unchanged. Interlobular septal thickening andgroundglass opacities related to pulmonary edema. PFT's: 10/29/2023: Moderate obstruction, significant response to bronchodilators, air trapping, moderately reduced diffusion capacity Assessment/plan: Waxing and waning pulmonary nodules, previously biopsied positive for organizing pneumonia Right pleural effusion s/p thoracentesis, transudate A-fib s/p ablation Hfr/pEF Pulmonary hypertension Hx breast ca s/p B/L mastectomies COPD/asthma overlap INGA Former smoker -S/p ENB/EBUS 10/05/23. 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 Right middle lobe biopsy also with adjacent acellular material. TBNA with RML with atypical cells, RLL nondiagnostic, LN 7, 4R, 11R negative for malignancy. Pneumonia PCR, bacterial culture, fungal stain/culture, AFB stain/culture, silver stain, Aspergillus galactomannan, beta D glucan negative. Procedure complicated by pneumothorax. -Unclear etiology for organizing pneumonia. Medication list reviewed, no clear association. Autoimmune evaluation with WERO, ANCA, RF, anti-CCP, Sjogren's antibody, myositis panel, HP panel negative. Prior infectious evaluation negative. Completed MBS, negative for aspiration. -Completed prolonged steroid taper for organizing pneumonia, follow-up imaging had improvement of hypermetabolic areas. -Further follow-up chest imaging has had waxing and waning of pulmonary nodules. Was restarted on prednisone for organizing PNA at the beginning of Aug as patient had worsening dyspnea and nonproductive cough. -Hospitalized this month for dyspnea. S/p thoracentesis with 450cc clear red fluid removed, pleuralfluid studies consistent with transudate. Cytology negative. Now on maintenance dose of lasix instead of as needed. Reported her breathing has returned to normal. Pending follow up with cardiology. -Chest CT in the hospital with possible enlargement of RLL pulmonary nodules, but also had worsening R pleural effusion on imaging. Discussed that we restarted steroids presuming that nodular areas are organizing pneumonia, but if she does not have improvement on her follow up CT may require repeatbiopsy. About to start prednisone 50mg daily and continue decreasing by 10mg daily every 2 weeks. Reviewed possible side effects of prolonged steroids. C/w atovaquone for PCP ppx. Will slow taper once reaches 20mg daily. Pending follow up CT next month. -PFTs previously reviewed with patient. C/w spiriva and albuterol prn. 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 Recently received auto CPAP 5-20 cm H2O. Will review compliance report and order follow-up overnight pulse ox testing at next visit -S/p TDAP, influenza vaccine this year. Previously recommended prevnar 20, RSV. Follow up: Will keep previously schedule appointment in Sep Please seek immediate medical attention for any worsening or worrying new symptoms. Patient education, benefits, risks, and precautions provided. Management plan was discussed in detail and in agreement. All questions or concerns answered to satisfaction and understood. Stephanie Arana DO 11:20 AM 09/07/24 Pulmonary and Critical Care Medicine documented in this [facility]01-22-2025 History of Present illness Narrative* Stephanie Arana DO - 09/07/2024 10:30 AM EST [facility] [place] [address] [place], [place] [id number] Pulmonary Patient Visit 09/07/2024 Referring Physician: CELIA AL DO Reason for Referral: Lung Nodules 09/29/23 History of Present Illness Rolando Peters is a 79 y.o. female with history of stage I triple negative breast cancer s/p left mastectomy 05/2011, right-sided breast cancer s/p mastectomy 06/1994 s/p adjuvant chemo/tamoxifen, CKD who presented for evaluation of multiple PET avid pulmonary nodules. Patient reported she follows with oncology Dr. Marcus. Stated that she was referred to Dr. Marcus as she has had progressive weightloss, about 50 pounds since 07/2022. Admitted to a chronic mostly nonproductive cough and postnasaldrip. Reported progressive CRUZ with stairs, denied any shortness of breath at rest. Stated she was diagnosed with exercise-induced asthma several years ago, has an albuterol inhaler which she rarely requires. Denied any hemoptysis, chest pain, night sweats. Initially diagnosed with INGA in 2007, completed PSG and prescribed CPAP with nasal mask, but has not been compliant. 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 Procedure complicated by pneumothorax requiring chest tube. Patient reports feeling well since being discharged. Admitted to blood- tinged sputum postprocedure which has since resolved. Admitted to chronic CRUZ with stairs, denied any shortness of breath at rest, chest pain. 12/04/23 Currently on prednisone 30mg until next week. Stated that she has some sinus drainage due to seasonal allergies, but that her cough has resolved. Was started on Spiriva and noticed improvement of wheezing except on the day that she forgot to take it. Denies any fevers, chills. 03/11/2024 Patient reported that she was hospitalized in January for A-fib with RVR and HFpEF exacerbation. Just completing her steroid taper. Now feeling improved from a respiratory standpoint. Denied any shortness of breath, CRUZ, wheezing, chest tightness. Admitted to some rhinorrhea and postnasal drip. 08/19/24 Patient reported worsening respiratory symptoms including increased dyspnea on exertion and worsening nonproductive cough. Using albuterol more often, 2-3 times daily with her Spiriva. Denied any fevers, chills, unintentional weight loss. 09/07/24 Patient was identified and seen today via Telehealth by agreement and consent. I used the followingTelehealth technology: Audio and video capabilities. Patient location: Patient Location: Home. This patient encounter is appropriate and reasonable under the circumstances: Patient preference . The patient has been advised of the potential risks and limitations of this mode of treatment (including but not limited to the absence of in-person examination) and has agreed to be treated in a remotefashion in spite of them. Any and all of the patient's/patient's family's questions on this issue have been answered and I have made no promises or guarantees to the patient. The patient has also been advised to contact this office for worsening conditions or problems, and seek emergency medical treatment and/or call 911 if the patient deems either necessary. The patient stated that they are currently in the state [facility]. If the patient is a minor, permission has been obtained by the parent orguardian for the patient to receive medical care at this visit. Restarted on prednisone at last visit. Patient was hospitalized last week for worsening CRUZ and chest pain. Infectious evaluation was negative. S/p R thoracentesis with 450 ml clear red fluid removedwith improvement of dyspnea. Discharged on daily lasix. Stated that her breathing is now back to baseline. PastMedical History Past Medical History: Diagnosis Date Arrhythmia Arthritis Asthma Breast cancer (HCC) 1993 Right Breast(Mastectomy) Breast cancer (HCC) 2010 Left Breast(Simple Mastectomy, SLND) Chronic kidney disease COPD (chronic obstructive pulmonary disease) (HCC) Coronary artery disease Diabetes (HCC) Emphysema of lung ([facility]) Within last year GERD (gastroesophageal reflux disease) High blood pressure Lung nodule -2022 Occlusion and stenosis of unspecified carotid artery Pure hypercholesterolemia Syncope and collapse 08/29/2022 Past Surgical History Past Surgical History: Procedure Laterality Date BRONCHOSCOPY CARDIAC ELECTROPHYSIOLOGY PROCEDURE N/A 05/05/2024 Performed by Walt Leigh MD at [facility] Cardiac Cath/EP Lab CAROTID ENDARTERECTOMY Right 2008 CATARACT EXTRACTION Bilateral 2006 CHEST TUBE INSERTION Right 10/05/2023 ENDOBRONCHIAL ULTRASOUND EBUS (HISTORICAL) 10/05/2023 LUNG BIOPSY MASTECTOMY Left 2010 simple/reconstruction/gingivagrapht MASTECTOMY Right 1993 reconstruction (TRAM) TOTAL ABDOMINAL HYSTERECTOMY W/ BILATERAL SALPINGOOPHORECTOMY 1998 TUBAL LIGATION 1979 Allergies Allergies Allergen Reactions Isosulfan Blue Anaphylaxis Methylene Blue Sulfa Antibiotics Rash Medications Medication Documentation Review Audit Reviewed by Maite Low RN (Registered Nurse) on 08/27/24 at 1518 Medication Order Taking? Sig Documenting Provider Last Dose Status albuterol (Ventolin HFA) 108 (90 Base) MCG/ACT inhaler [id number] Inhale 2 puffs every 4 hours as needed for wheezing or shortness of breath. Stephanie Wren, Active apixaban (Eliquis) 5 MG tablet [id number] Take 1 tablet (5 mg) by mouth 2 times daily. Kristy Doran, DEWATERER OPERATOR - WINDOWS TECHNICAL SPECIALIST Active atovaquone (Mepron) 750 MG/5ML suspension [id number] Take 10 mL (1,500 mg) by mouth daily. Stephanie Arana DO Active carvedilol (Coreg) 12.5 MG tablet [id number] Take 1 tablet (12.5 mg) by mouth in the morning and 1 tablet (12.5 mg) in the evening. Take with meals. SUJATA Negrete CNP Active cholecalciferol (Vitamin D-3) 50 MCG (2000 UT) tablet [id number] Take 4,000 Units by mouth daily. Historical ProviderMD Active Contour Next Test test strip [id number] USE ONE strip TO test TWICE DAILY Historical ProviderMD Active ezetimibe (Zetia) 10 MG tablet [id number] Take 1 tablet (10 mg) by mouth in the morning. SUJATA Negrete CNP Active Finerenone (Kerendia) 10 MG tablet [id number] Take 1 tablet by mouth daily. Historical ProviderMD Active fluticasone (Cutivate) 0.05 % cream [id number] Apply topically Daily as needed (itching). Historical ProviderMD Active fluticasone (Flonase) 50 MCG/ACT nasal spray [id number] Administer 1 spray into each nostril daily. Shake gently. Before first use, prime pump. After use, clean tip and replace cap. Historical ProviderMD Active furosemide (Lasix) 20 MG tablet [id number] Take 1 tablet (20 mg) by mouth Daily as needed (weight gain, swelling or shortness of breath). SUJATA Enamorado CNP Active guaiFENesin (Mucinex) 600 MG 12 hr tablet [id number] Take 1,200 mg by mouth twice a day. Historical ProviderMD Active Jentadueto XR 2.5-1000 MG per 24 hr tablet [id number] take 2 tablets by mouth once daily Historical ProviderMD Active lansoprazole (Prevacid) [address] capsule [id number] 1 capsule in the morning. Historical ProviderBRIANctive losartan (Cozaar) 100 MG tablet [id number] Take 1 tablet (100 mg) by mouth daily. SUJATA Enamorado CNP Active Multiple Vitamins-Minerals (MULTIPLE VITAMINS/WOMENS PO) [id number] Take by mouth daily. Historical Provider, Active predniSONE (Deltasone) 20 MG tablet [id number] Take 3 tablets (60 mg) by mouth daily. Take 3 tablets(60 mg) daily x 14 days, then 2.5 tablets (50 mg) daily x 14 days, then 2 tablets (40 mg) daily until follow-up Stephanie Arana, DO Active rosuvastatin (Crestor) 10 MG tablet [id number] daily. Historical Provider, Active sertraline (Zoloft) 25 MG tablet [id number] Take 1 tablet (25 mg) by mouth daily. Steven Stewart, DO Active tiotropium (Spiriva Respimat) 2.5 MCG/ACT inhaler [id number] Inhale 2 puffs daily. 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 Substance Use Topics Alcohol use: Yes Alcohol/week: 2.0 - 16.0 standard drinks of alcohol Types: 2 Glasses of wine per week Comment: occ FamilyHistory Family History Problem Relation Name Age of Onset Ovarian cancer Mother 66 Heart attack Father Lucita (Mother) 76 High Blood Pressure Father Lucita (Mother) Macular degeneration Father Lucita (Mother) Cancer Father Lucita (Mother) Ovarian cancer Mother's Sister 45 Other ([id number]) Son neuofibromatosis, BRCA1 positive Neurofibromatosis Son High Blood Pressure Son Cancer Son hairy cell leukemia Breast cancer Cousin 42 +brca Bladder Cancer Cousin 19 Hypertension Sister Angie Kidney disease Sister Angie Hypertension Sister Mireya Sister Kidney disease Sister Mireya Sister Review of Systems Review of Systems Constitutional: Negative. Respiratory: Positive for cough. Occasional nonproductive cough Cardiovascular: Negative. Physical Exam There were no vitals filed for this visit. Physical Exam Constitutional: Appearance: Normal appearance. Comments: Limited exam, video visit HIEN: Head: Normocephalic and atraumatic. Pulmonary: Effort: Pulmonary effort is normal. Neurological: Mental Status: She is alert and oriented to person, place, and time. Labs: Available studies were reviewed Radiology: Personally reviewed and interpreted Chest CT 08/24/2023: Interval development of scattered focal consolidations in the lungs, particularly in the apical left lung lobes as discussed. Recommended short-term follow-up imaging to document resolution. Interval development of new lateral right middle lung lobe nodule with interval enlargement of other previously noted nodules as discussed. Further clinical attention and workup is warranted. Moderate pulmonary emphysema. Coronary and aortic atherosclerosis. Other chronic findings as discussed. PET/CT 09/17/23: 1 cm irregular nodular density within the lateral aspect of the right upper lobe onthe low-dose CT images demonstrates intense FDG accumulation, consistent with malignancy. A 7 mm nodular density within the anteromedial right lower lobe also demonstrates abnormal FDG accumulation, suspicious for malignancy. A streaky density within the left lower lobe on the low-dose CT images demonstrates mild FDG accumulation, less than typically expected for malignancy. A small, somewhat streaky nodular density within the medial aspect of the right lower lobe also demonstrates mild FDG uptake. There is a linear density at the posterior aspect of the left lung apex which demonstrate mild to moderate FDG accumulation which is nonspecific, however the linear configuration of this area is more suggestive of an inflammatory etiology. CT follow-up of these findings is recommended. No evidence of regional edmond or distant metastatic disease. Chest CT 11/25/23: Multiple bilateral areas of lung parenchymal abnormality and increased activity on the previous PET/CT are unchanged. There is a new 6 mm nodular density in the left upper lobe lung. Continued follow-up CT would be helpful. Chest CT 02/24/2024: 1. Interval improvement of anterior left upper lung lobe infiltrates with residual opacities still observed. Follow-up imaging to document resolution. 2. New apical right lower lung lobe and subpleural right middle lung lobe 6 mm nodules. For these nodule characteristics, Fleischner society recommends CT at 3-6 months and then at 18-24 months. 3. Coronary and aortic atherosclerosis. 4. Other chronic and postsurgical findings as discussed. Chest CT 05/27/2024: Interval development of several groundglass and solid pulmonary nodules measuring up to 2.4 cm and 9 mm respectively. In addition, increased size of several previously noted pulmonary nodules. Further clinical evaluation is warranted in this given clinical context. Interval development of right-sided pleural effusion with passive atelectasis. Coronary and aortic atherosclerosis. Other chronic and postsurgical findings as discussed. Chest CT 07/27/2024: 1. Numerous indeterminate small and clustered irregular nodularities. Some appear slightly enlarged and some slightly smaller and are indeterminate. The largest single nodularityin the right lower lobe 1.0 x 0.9 cm. Right lower lobe groundglass nodule has resolved. No new groundglass nodules. These could be infectious or inflammatory. Neoplastic etiology is felt a less likely consideration but not excluded. Recommend continued follow-up in 3-6 months. 2. Chronic moderate right pleural effusion minimally enlarged. 3. Severe atherosclerosis coronary artery, aorta and splenic artery. There is some at least mild stenosis within the upper abdominal aorta. This is incompletely evaluated without contrast. Chest CT 08/26/2024: 1. No evidence of acute aortic dissection, penetrating atherosclerotic ulcer orintramural hematoma. 2. Advanced atherosclerotic disease. Redemonstration of marked stenosis versus occlusion of the proximal right internal iliac artery. Numerous other areas of stenosis are present, as detailed above. 3. Multiple lung nodules bilaterally, posterior which are unchanged but with a worsening cluster ofnodular densities in the right lower lobe. These are indeterminate but could be due to progressive infectious/inflammatory process. However, recommend either short-term follow-up imaging in three months or tissue sampling or PET/CT as a neoplasm is not excluded. 4. Bilateral pleural effusions, greater on the right, unchanged. Interlobular septal thickening andgroundglass opacities related to pulmonary edema. PFT's: 10/29/2023: Moderate obstruction, significant response to bronchodilators, air trapping, moderately reduced diffusion capacity Assessment/plan: Waxing and waning pulmonary nodules, previously biopsied positive for organizing pneumonia Right pleural effusion s/p thoracentesis, transudate A-fib s/p ablation Hfr/pEF Pulmonary hypertension Hx breast ca s/p B/L mastectomies COPD/asthma overlap INGA Former smoker -S/p ENB/EBUS 10/05/23. 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 Right middle lobe biopsy also with adjacent acellular material. TBNA with RML with atypical cells, RLL nondiagnostic, LN 7, 4R, 11R negative for malignancy. Pneumonia PCR, bacterial culture, fungal stain/culture, AFB stain/culture, silver stain, Aspergillus galactomannan, beta D glucan negative. Procedure complicated by pneumothorax. -Unclear etiology for organizing pneumonia. Medication list reviewed, no clear association. Autoimmune evaluation with WERO, ANCA, RF, anti-CCP, Sjogren's antibody, myositis panel, HP panel negative. Prior infectious evaluation negative. Completed MBS, negative for aspiration. -Completed prolonged steroid taper for organizing pneumonia, follow-up imaging had improvement of hypermetabolic areas. -Further follow-up chest imaging has had waxing and waning of pulmonary nodules. Was restarted on prednisone for organizing PNA at the beginning of Aug as patient had worsening dyspnea and nonproductive cough. -Hospitalized this month for dyspnea. S/p thoracentesis with 450cc clear red fluid removed, pleuralfluid studies consistent with transudate. Cytology negative. Now on maintenance dose of lasix instead of as needed. Reported her breathing has returned to normal. Pending follow up with cardiology. -Chest CT in the hospital with possible enlargement of RLL pulmonary nodules, but also had worsening R pleural effusion on imaging. Discussed that we restarted steroids presuming that nodular areas are organizing pneumonia, but if she does not have improvement on her follow up CT may require repeatbiopsy. About to start prednisone 50mg daily and continue decreasing by 10mg daily every 2 weeks. Reviewed possible side effects of prolonged steroids. C/w atovaquone for PCP ppx. Will slow taper once reaches 20mg daily. Pending follow up CT next month. -PFTs previously reviewed with patient. C/w spiriva and albuterol prn. 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 Recently received auto CPAP 5-20 cm H2O. Will review compliance report and order follow-up overnight pulse ox testing at next visit -S/p TDAP, influenza vaccine this year. Previously recommended prevnar 20, RSV. Follow up: Will keep previously schedule appointment in Sep Please seek immediate medical attention for any worsening or worrying new symptoms. Patient education, benefits, risks, and precautions provided. Management plan was discussed in detail and in agreement. All questions or concerns answered to satisfaction and understood. Stephanie Arana DO 11:20 AM 09/07/24 Pulmonary and Critical Care Medicine documented in this [facility]01-14-2025 Telephone encounter Note* Telephone Encounter - Karime Marie RN - 08/30/2024 11:13 AM EST Patient completed US thoracentesis 08-29-2024. Has follow-up scheduled in the pulmonary office with Dr. Arana 09-07-2024 to review results. Lung navigators will continue to follow. [facility] [id number] Miscellaneous Notes* Telephone Encounter - Karime Marie RN - 08/30/2024 11:13 AM EST Patient completed US thoracentesis 08-29-2024. Has follow-up scheduled in the pulmonary office with Dr. Arana 09-07-2024 to review results. Lung navigators will continue to follow. * Telephone Encounter - Karime Marie RN - 08/29/2024 1:35 PM EST Pt appeared on ED nuance search for lung nodules after 08/26/24 revealed the followin. Multiple lung nodules bilaterally, posterior which are unchanged but with a worsening cluster ofnodular densities in the right lower lobe. These are indeterminate but could be due to progressive infectious/inflammatory process. However, recommend either short-term follow-up imaging in three months or tissue sampling or PET/CT as a neoplasm is not excluded. 4. Bilateral pleural effusions, greater on the right, unchanged. Interlobular septal thickening andgroundglass opacities related to pulmonary edema. Referral: known to [facility]; [facility] imaging none Pt is documented as former smoker q 1993 Additional Risk Factors: org pna Pulm consulted during admission. Dr. Loyola saw patient noting bilateral pleural effusions right greater than left with unclear etiology. Patient was restarted on steroid taper for organizing pneumonia. Recommending diagnostic/therapeutic thoracentesis during admission. Patient will decide if she wants to proceed. Otherwise will follow-up with pulmonary on an outpatient basis. Scheduled for CT chest 09-30-2024 and follow-up with [facility] 10-14-2024 documented in this [facility]01-14-2025 Telephone encounter Note* Telephone Encounter - Tana Hernandez LPN - 08/30/2024 10:38 AM EST Date/Time patient contacted: 08/30/24 Has a follow up appointment been made with your primary care provider? (If yes, note date/time of appt. If no, are we able to schedule or get patient in contact with provider): yes Have your prescriptions been filled: (If no, why not, contact pharmacist if needed): yes Now that you are home, I want to make sure that you understand the most important things about taking care of yourself. I see that you were discharged with a diagnosis of Exertional shortness of breath , do you know what symptoms or health problems to watch for or when to call your provider: yes Do you have any other questions about your discharge or follow up care instructions? (if yes, what): no Are there any caregivers from the hospital that you would like to recognize or compliment: no [facility] [id number] Miscellaneous Notes* Telephone Encounter - Tana Hernandez LPN - 08/30/2024 10:38 AM EST Date/Time patient contacted: 08/30/24 Has a follow up appointment been made with your primary care provider? (If yes, note date/time of appt. If no, are we able to schedule or get patient in contact with provider): yes Have your prescriptions been filled: (If no, why not, contact pharmacist if needed): yes Now that you are home, I want to make sure that you understand the most important things about taking care of yourself. I see that you were discharged with a diagnosis of Exertional shortness of breath , do you know what symptoms or health problems to watch for or when to call your provider: yes Do you have any other questions about your discharge or follow up care instructions? (if yes, what): no Are there any caregivers from the hospital that you would like to recognize or compliment: no documented in this [facility]01-13-2025 Hospital Discharge instructions* Discharge Instr - Activity* Tiffanie Blank RN - 08/29/2024 3:25 PM EST As tolerated * Discharge Instr - Diet* Tiffanie Blank RN - 08/29/2024 3:25 PM EST Healthy diet * Discharge Instr - CARRILLO* Tiffanie Blank RN - 08/29/2024 3:26 PM EST * Attachments The following attachments cannot be sent through Care Everywhere. * Thoracentesis Discharge Instructions (Tristanian) documented in this [facility]01-13-2025 Nurse Note* Tiffanie Blank RN - 08/29/2024 3:11 PM EST Discharge instructions given to the patient and questions were addressed. Educated patient on the importance of follow up appointments. [facility] [id number] Nurse Note* Tiffanie Blank RN - 08/29/2024 3:11 PM EST Discharge instructions given to the patient and questions were addressed. Educated patient on the importance of follow up appointments. * Shae Roe RN - 08/29/2024 2:12 PM EST Patient arrived to Ultrasound department for thoracentesis. History, medications and allergies reviewed. ROCKY Victor L in to discuss procedure and informed consent obtained. Patient assisted to sitting on the edge of the bed. R upper back scanned, marked and prepped in sterile fashion. 450cc of cloudy fredo fluid removed. Vaseline guaze dressing applied. Patient tolerated procedure well. * Tiffanie Blank RN - 08/29/2024 1:13 PM EST Patient is agreeable to have procedure. Notified Stella Wong APRN . documented in this [facility]01-13-2025 Note* Home Care - Nydia Keith RN - 08/29/2024 2:58 PM EST Spoke to patient regarding possible home care SN services. Pt politely declined at this time. Pt will follow up with PCP, if this is needed after she returns home. [facility] [id number] Note* Home Care - Nydia Keith RN - 08/29/2024 2:58 PM EST Spoke to patient regarding possible home care SN services. Pt politely declined at this time. Pt will follow up with PCP, if this is needed after she returns home. [facility] [id number] Miscellaneous Notes* Home Care - Nydia Keith RN - 08/29/2024 2:58 PM EST Spoke to patient regarding possible home care SN services. Pt politely declined at this time. Pt will follow up with PCP, if this is needed after she returns home. * Care Plan - Tiffanie Blank RN - 08/29/2024 10:53 AM EST Problem: Safety - Adult Goal: Free from fall injury Outcome: Progressing Flowsheets (Taken 08/29/2024 0830) Free from fall injury: Instruct family/caregiver on patient safety Problem: Discharge Planning Goal: Discharge to home or other facility with appropriate resources Outcome: Progressing Problem: Chronic Conditions and Co-morbidities Goal: Patient's chronic conditions and co-morbidity symptoms are monitored and maintained or improved Outcome: Progressing * Care Plan - Juliet Asif RN - 08/28/2024 5:16 PM EST Problem: Safety - Adult Goal: Free from fall injury 08/28/2024 1715 by Juliet Asif RN Outcome: Progressing 08/28/2024 1307 by Juliet Asif RN Outcome: Progressing Pt ambulating in nava, no weakness * Care Plan - Juliet Asif RN - 08/28/2024 1:08 PM EST Problem: Chronic Conditions and Co-morbidities Goal: Patient's chronic conditions and co-morbidity symptoms are monitored and maintained or improved Outcome: Progressing Review home meds Problem: Discharge Planning Goal: Discharge to home or other facility with appropriate resources Outcome: Progressing Identify any home needs * Care Plan - Maite Low RN - 08/27/2024 6:19 PM EST Problem: Pain - Adult Goal: Verbalizes/displays adequate comfort level or baseline comfort level Outcome: Progressing Problem: Safety - Adult Goal: Free from fall injury Outcome: Progressing Problem: Discharge Planning Goal: Discharge to home or other facility with appropriate resources Outcome: Progressing Problem: Chronic Conditions and Co-morbidities Goal: Patient's chronic conditions and co-morbidity symptoms are monitored and maintained or improved Outcome: Progressing documented in this [facility]01-13-2025 [facility] 08-29-2024 Hospital course Narrative* Nataly Wilson MD - 08/29/2024 2:50 PM EST Hospitalist Discharge Summary Rolando Peters : 1945 Admit date: 08/26/2024 Discharge date: 08/29/2024 Admitting Physician: Reginald Garza DO Primary Care Physician: CELIA AL DO Visit Status: ADMIT Code Status: Full Code BRIEF HOSPITAL COURSE: Rolando is a 79 y.o. female with past medical history organizing PNA, DM2, INGA, COPD, CKD3, history of pulm nodules, pAF, HFpEF, h/o breast CA who presents with chief complaint of dyspnea on exertion, CP, back pain. Hx of organizing PNA and follows with [facility]. S/p ENB/EBUS 10/05/23. 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 Right middle lobe biopsy also with adjacent acellular material. TBNA with RML with atypical cells, RLL nondiagnostic, LN 7, 4R, 11R negative for malignancy. Pneumonia PCR, bacterial culture, fungal stain/culture, AFB stain/culture, silver stain, Aspergillus galactomannan, beta D glucan negative. Autoimmune evaluation with WERO, ANCA, RF, anti-CCP, Sjogren's antibody, myositis panel, HP panel negative. Prior infectious evaluation negative. Completed MBS, negative foraspiration. Unclear etiology for organizing pneumonia. In the ER, vitals significant for BP 190s/70s, labs significant for BNP 6947, GFR 56.4, trop 22-->19, Hgb 9.9. CTA was obtained to rule out PE or dissection, this showed multiple pulm nodules, b/l pleural effusions and multiple areas of atherosclerosis but otherwise unremarkable. CXR showed interstitial edema. Of note, she was recently seen by pulm 08/19 for follow-up regarding multiple lung nodules who placed her on prolonged steroid course due to similar symptoms of CRUZ in the setting of organizing PNA. She is on atovaquone for PCP prophylaxis. There was some discussion of possible thoracentesis for R pleural effusion, she was hopingto defer for repeat imaging before making that decision. Will admit for further evaluation and management. Patient had a recent echo on 07/25/24 consistent with an EF of 55%, moderate MR, mild stenosis of the aortic valve, mild to moderate tricuspid valve. Treated with IV Lasix 20 mg, will increase to IV 40 twice daily with strict I's and O's. No need to repeat echo. Started on IV diuresis with cardiology consulted and recommend stopping IV Lasix. Patient is usually on Lasix 20 mg as needed and w ill increase to 20 mg daily. Plans to follow-up with Dr. Jerome on 10/31/2024 as an outpatient. Pulmonary consulted and recommends diagnostic and therapeutic thoracentesis on the right side to prevent fibrothorax. S/p -450 mL out. Remains on prednisone therapy and will likely follow-up as an outpatient. Medically stable for discharge Acute, acute on chronic, unstable/uncontrolled chronic problems/diagnoses: Acute on chronic HFpEF Bilateral pleural effusions Type 2 DM with hyperglycemia Stable chronic problems affecting care, new non-acute diagnoses: CAD HTN HLD CKD stage III Hx of organizing PNA on Atovaquone PAF s/p ablation INGA COPD/asthma overlap Hx of stage I triple negative breast cancer s/p left mastectomy 05/2011, right- sided breast cancer s/p mastectomy 06/1994 s/p adjuvant chemo/tamoxifen Hx of pulmonary nodules Hx of tobacco use GERD Past Medical History: Diagnosis Date Arrhythmia Arthritis Asthma Breast cancer (HCC) 1993 Right Breast(Mastectomy) Breast cancer (HCC) 2010 Left Breast(Simple Mastectomy, SLND) Chronic kidney disease COPD (chronic obstructive pulmonary disease) (HCC) Coronary artery disease Diabetes (HCC) Emphysema of lung (HCC) Within last year GERD (gastroesophageal reflux disease) High blood pressure Lung nodule -2022 Occlusion and stenosis of unspecified carotid artery Pure hypercholesterolemia Syncope and collapse 08/29/2022 Procedures: Right thoracentesis (08/29/24) Hospital Course: See discharge diagnoses list above and medication adjustments below in med rec.Thepatient is discharged in improved and stable condition. Consults: IP CONSULT TO PULMONOLOGY IP CONSULT TO CARDIOLOGY Discharge Instructions: Diet: Dietary Orders (From admission, onward) Start Ordered 08/26/242101 Adult diet Regular; Low Fat/Low Chol/High Fiber/2 gm Na Diet effective now Question Answer Comment Diet type Regular Diet Cardiac type: Low Fat/Low Chol/High Fiber/2 gm Na 08/26/242100 Activity: as tolerated Recommended Outpatient Tests: Disposition: Patient discharged in stable condition to Home. Spent 45 min discharging the patient and coming up with patient discharge plan. Vitals: BP (!) 156/43 Pulse 85 Temp 37 C (98.6 F) (Temporal) Resp 16 Ht 5' 7 (1.702 m) Wt 140 lb (63.5 kg) SpO2 95% BMI 21.93 kg/m Pulse Ox: SpO2 Av % Min: 93 % Max: 96 % Supplemental O2: Physical Exam Constitutional: Appearance: She is obese. She is not ill-appearing. Cardiovascular: Rate and Rhythm: Normal rate. Heart sounds: No murmur heard. Pulmonary: Effort: No respiratory distress. Breath sounds: Rhonchi present. No wheezing. Abdominal: General: There is no distension. Tenderness: There is no abdominal tenderness. Musculoskeletal: General: Swelling present. Neurological: Mental Status: Mental status is at baseline. LABS: Recent Labs 08/27/24 0657 08/28/24 0417 08/29/24 0404 NA 136 135* 136 K 4.3 3.7 4.1 CL 105 103 100 CO2 20* 21* 25 BUN 28* 28* 37* CREATININE 1.01 1.10 1.09 GLUCOSE 108 155* 147* CALCIUM 8.7* 8.4* 8.7* Recent Labs 08/27/24 0657 08/28/24 0417 08/29/24 0404 WBC 7.6 7.0 7.8 RBC 3.30* 3.41* 3.50* HGB 9.5* 9.7* 10.0* HCT 29.6* 30.4* 31.6* MCV 89.7 89.1 90.3 MCH 28.8 28.4 28.6 MCHC 32.1 31.9 31.6 RDW 14.6 14.7 14.5 PLT 225 233 237 MPV 9.9 9.5 9.7 Discharge Medications: Medication List START taking these medications amLODIPine 2.5 MG tablet Commonly known as: Norvasc Take 1 tablet (2.5 mg) by mouth daily. Start taking on: August 30, 2024 CHANGE how you take these medications furosemide 20 MG tablet Commonly known as: Lasix Take 1 tablet (20 mg) by mouth daily. Do not start before August 30, 2024. Start taking on: August 30, 2024 What changed: when to take this reasons to take this CONTINUE taking these medications albuterol 108 (90 Base) MCG/ACT inhaler Commonly known as: Ventolin HFA Inhale 2 puffs every 4 hours as needed for wheezing or shortness of breath. atovaquone 750 MG/5ML suspension Commonly known as: Mepron Take 10 mL (1,500 mg) by mouth daily. carvedilol 12.5 MG tablet Commonly known as: Coreg Take 1 tablet (12.5 mg) by mouth in the morning and 1 tablet (12.5 mg) in the evening. Take with meals. cholecalciferol 50 MCG (2000 UT) tablet Commonly known as: Vitamin D-3 Contour Next Test test strip Generic drug: glucose blood Eliquis 5 MG tablet Generic drug: apixaban Take 1 tablet (5 mg) by mouth 2 times daily. ezetimibe 10 MG tablet Commonly known as: Zetia Take 1 tablet (10 mg) by mouth in the morning. fluticasone 0.05 % cream Commonly known as: Cutivate fluticasone 50 MCG/ACT nasal spray Commonly known as: Flonase guaiFENesin 600 MG 12 hr tablet Commonly known as: Mucinex Jentadueto XR 2.5-1000 MG per 24 hr tablet Generic drug: linaGLIPtin-metFORMIN ER Kerendia 10 MG tablet Generic drug: Finerenone lansoprazole [address] capsule Commonly known as: Prevacid losartan 100 MG tablet Commonly known as: Cozaar Take 1 tablet (100 mg) by mouth daily. MULTIPLE VITAMINS/WOMENS PO predniSONE 20 MG tablet Commonly known as: Deltasone Take 3 tablets (60 mg) by mouth daily. Take 3 tablets (60 mg) daily x 14 days, then 2.5 tablets (50mg) daily x 14 days, then 2 tablets (40 mg) daily until follow-up rosuvastatin 10 MG tablet Commonly known as: Crestor sertraline 25 MG tablet Commonly known as: Zoloft Take 1 tablet (25 mg) by mouth daily. Spiriva Respimat 2.5 MCG/ACT inhaler Generic drug: tiotropium Inhale 2 puffs daily. Vascepa 1 g capsule Generic drug: Icosapent Ethyl TAKE 2 CAPSULES BY MOUTH 2 TIMES DAILY Where to Get Your Medications These medications were sent to [facility] - [address] [facility] [id number] amLODIPine 2.5 MG tablet furosemide 20 MG tablet Recommended Follow-up: Rashi Jerome MD [address] [facility] [address] [facility] [address] Schedule an appointment as soon as possible for a visit in 2 week(s) Celia Al DO [address] [facility], [place] [facility] [address] Follow up in 2 day(s) follow within two weeks Complexity of Follow up: [] Moderate Complexity: follow up within 7-14 calendar days (46306) [x] Severe Complexity: follow up within 7 calendar days (52923) Follow up Testing, Pending results or Referrals at Transitional Care Visit: [x] yes [] no Instructions to MA: Please call patient on day after discharge (must document patient contacted within 2 business days of discharge). Follow up questions for MA: 1. Did you get medications filled and taking them as instructed from discharge? 2. Are you following your discharge instructions from your hospital stay? 3. Please confirm patient is scheduled for a follow up appointment within the above time frame. Signed: Nataly Wilson MD Division of Hospitalist Medicine Acute care solutions 08/29/2024, 2:50 PM documented in this [facility]01-13-2025 Nurse Note* Shae Roe RN - 08/29/2024 2:12 PM EST Patient arrived to Ultrasound department for thoracentesis. History, medications and allergies reviewed. ROCKY Ramirez in to discuss procedure and informed consent obtained. Patient assisted to sitting on the edge of the bed. R upper back scanned, marked and prepped in sterile fashion. 450cc of cloudy fredo fluid removed. Vaseline guaze dressing applied. Patient tolerated procedure well. [facility] [id number] History of Present illness Narrative* Nataly Wilson MD - 08/29/2024 1:38 PM EST Hospitalist Progress Note 08/29/2024 Subjective: Admit Date: 08/26/2024 PCP: CELIA AL DO Room#: B2-251/B2-251 A BRIEF HOSPITAL COURSE: Rolando is a 79 y.o. female with past medical history organizing PNA, DM2, INGA, COPD, CKD3, history of pulm nodules, pAF, HFpEF, h/o breast CA who presents with chief complaint of dyspnea on exertion, CP, back pain. Hx of organizing PNA and follows with [facility]. S/p ENB/EBUS 10/05/23. 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 Right middle lobe biopsy also with adjacent acellular material. TBNA with RML with atypical cells, RLL nondiagnostic, LN 7, 4R, 11R negative for malignancy. Pneumonia PCR, bacterial culture, fungal stain/culture, AFB stain/culture, silver stain, Aspergillus galactomannan, beta D glucan negative. Autoimmune evaluation with WERO, ANCA, RF, anti-CCP, Sjogren's antibody, myositis panel, HP panel negative. Prior infectious evaluation negative. Completed MBS, negative foraspiration. Unclear etiology for organizing pneumonia. In the ER, vitals significant for BP 190s/70s, labs significant for BNP 6947, GFR 56.4, trop 22-->19, Hgb 9.9. CTA was obtained to rule out PE or dissection, this showed multiple pulm nodules, b/l pleural effusions and multiple areas of atherosclerosis but otherwise unremarkable. CXR showed interstitial edema. Of note, she was recently seen by pulm 08/19 for follow-up regarding multiple lung nodules who placed her on prolonged steroid course due to similar symptoms of CRUZ in the setting of organizing PNA. She is on atovaquone for PCP prophylaxis. There was some discussion of possible thoracentesis for R pleural effusion, she was hopingto defer for repeat imaging before making that decision. Will admit for further evaluation and management. Patient had a recent echo on 07/25/24 consistent with an EF of 55%, moderate MR, mild stenosis of the aortic valve, mild to moderate tricuspid valve. Treated with IV Lasix 20 mg, will increase to IV 40 twice daily with strict I's and O's. No need to repeat echo. Started on IV diuresis with cardiology consulted Interval History: No overnight issues. Case and plan discussed with patient and bedside nurse. All questions answered. Adult diet Regular; Low Fat/Low Chol/High Fiber/2 gm Na 24HR INTAKE/OUTPUT: Intake/Output Summary (Last 24 hours) at 08/29/2024 1338 Last data filed at 08/29/2024 1158 Gross per 24 hour Intake 800 ml Output 1150 ml Net -350 ml Past Medical History: Past Medical History: Diagnosis Date Arrhythmia Arthritis Asthma Breast cancer (HCC) 1993 Right Breast(Mastectomy) Breast cancer (HCC) 2010 Left Breast(Simple Mastectomy, SLND) Chronic kidney disease COPD (chronic obstructive pulmonary disease) (HCC) Coronary artery disease Diabetes (HCC) Emphysema of lung (HCC) Within last year GERD (gastroesophageal reflux disease) High blood pressure Lung nodule -2022 Occlusion and stenosis of unspecified carotid artery Pure hypercholesterolemia Syncope and collapse 08/29/2022 LABS: CBC: Recent Labs 08/27/24 0657 08/28/24 0417 08/29/24 0404 WBC 7.6 7.0 7.8 RBC 3.30* 3.41* 3.50* HGB 9.5* 9.7* 10.0* HCT 29.6* 30.4* 31.6* MCV 89.7 89.1 90.3 RDW 14.6 14.7 14.5 PLT 225 233 237 BMP: Recent Labs 08/27/24 0657 08/28/247 08/29/24 0404 NA 136 135* 136 K 4.3 3.7 4.1 CL 105 103 100 CO2 20* 21* 25 BUN 28* 28* 37* CREATININE 1.01 1.10 1.09 GLUCOSE 108 155* 147* CALCIUM 8.7* 8.4* 8.7* ANIONGAP 11 11 11 LIVER PROFILE: Recent Labs 08/27/24 0657 08/28/2441608/29/24 0404 AST 28 24 24 ALT 28 24 30* BILITOT 0.5 0.5 0.4 ALKPHOS 52 50 52 PROT 6.1* 6.0* 6.2* PT/INR: No results for input(s): PROTIME, INR in the last 72 hours. CARDIAC ENZYMES: No results for input(s): TROPONINI in the last 72 hours. Procalcitonin: Lab Results Component Value Date PROCAL 0.05 08/27/2024 COVID-19 PCR: No results for input(s): COVID19 in the last 72 hours. Objective: Vitals: BP (!) 160/49 Pulse 65 Temp 37 C (98.6 F) (Temporal) Resp 16 Ht 5' 7 (1.702 m) Wt 140 lb (63.5 kg) SpO2 95% BMI 21.93 kg/m Pulse Ox: SpO2 Av.3 % Min: 95 % Max: 96 % Supplemental O2: Physical Exam Constitutional: Appearance: She is obese. She is not ill-appearing. Cardiovascular: Rate and Rhythm: Normal rate. Heart sounds: No murmur heard. Pulmonary: Effort: No respiratory distress. Breath sounds: Rhonchi present. No wheezing. Abdominal: General: There is no distension. Tenderness: There is no abdominal tenderness. Musculoskeletal: General: Swelling present. Neurological: Mental Status: Mental status is at baseline. Medications: Scheduled PRN amLODIPine, 2.5 mg, Oral, Daily apixaban, 5 mg, Oral, BID atovaquone, 1,500 mg, Oral, Daily carvedilol, 12.5 mg, Oral, BID WC cholecalciferol, 4,000 Units, Oral, Daily ezetimibe, 10 mg, Oral, Daily Finerenone, 1 tablet, Oral, Daily [START ON 08/30/2024] furosemide, 20 mg, Oral, Daily insulin lispro, 0-6 Units, SubCUTAneous, TID WC And insulin lispro, 0-6 Units, SubCUTAneous, Nightly ipratropium-albuterol, 3 mL, Nebulization, TID losartan, 100 mg, Oral, Daily mometasone-formoterol, 2 puff, Inhalation, BID pantoprazole, 40 mg, Oral, qAM AC predniSONE, 60 mg, Oral, Daily rosuvastatin, 10 mg, Oral, Daily sertraline, 25 mg, Oral, Daily tiotropium, 2 puff, Inhalation, Daily PRN medications: acetaminophen OR acetaminophen, albuterol, dextrose, dextrose, glucagon (rDNA), glucose, guaiFENesin, hydrALAZINE, polyethylene glycol (PEG) 3350 Continuous Assessment Data: (CAT1) Reviewed 3 or more notes from different specialty or health system (each=1). (CAT1) Reviewed 3 or more labs/studies ordered by another provider not previously counted (each=1, panels count as 1). (CAT1) Reviewed 3 or more labs/studies previously ordered by me not previously counted (each=1, panels count as 1). (CAT1) Ordered 3 or more new labs and/or studies (each=1, panels count as 1). (LOW: 2x CAT1 or independent historian MOD: 3x CAT1 or 1x CAT3 EXTENSIVE: 3x CAT1 and 1x CAT3) Acute, acute on chronic, unstable/uncontrolled chronic problems/diagnoses: Acute on chronic HFpEF Bilateral pleural effusions Type 2 DM with hyperglycemia Stable chronic problems affecting care, new non-acute diagnoses: CAD HTN HLD CKD stage III Hx of organizing PNA on Atovaquone PAF s/p ablation INGA COPD/asthma overlap Hx of stage I triple negative breast cancer s/p left mastectomy 05/2011, right- sided breast cancer s/p mastectomy 06/1994 s/p adjuvant chemo/tamoxifen Hx of pulmonary nodules Hx of tobacco use GERD Plan As a result of the above findings & factors, the following mgmt was pursued: -Pulmonary following and recommends diagnostic and therapeutic thoracentesis on the right side to prevent fibrothorax. Remains on prednisone therapy and will likely follow-up as an outpatient -Cardiology following will recommend stopping IV Lasix. Patient is usually on Lasix 20 mg as neededand will increase to 20 mg daily. Plans to follow-up with Dr. Jerome on 10/31/2024 as an outpatient -Anticipate discharge home today anticipate discharge home today - Discussed with nurse - am labs, replace lytes prn - PT/OT/CM/SW - delirium precautions: increase activity - DVT prophylaxis: encourage ambulation and already anticoagulated Complexity: Acute illness or injury posing a threat to life or body function (HIGH). Chronic illness with severe exacerbation, progression, or side effect of tx (HIGH). Risk: Admission to hospital-level care was considered or occurred (HIGH). Advance Directive: Full Code Anticipated Discharge - Date - 08/29 - Location - Home with Home Health Care - Pending the following - After thora Total time spent (which include face to face and non face to face encounters) : 55 minutes Toxic drug monitoring/narrow therapeutic index drug monitoring : # Drug name : Eliquis # Route administered : oral # Method of monitoring : CBC Extended Emergency Contact Information Primary Emergency Contact: Jin Peters Address: [address] [place] [address] of [facility] Mobile Relation: Spouse Secondary Emergency Contact: Ene Negreet Address: [address] [place] [address] Mobile Relation: Daughter Nataly Wilson MD Division of Hospitalist Medicine [facility] * Jerel Loyola MD - 08/29/2024 12:30 PM EST Images from the original note were not included. [facility] [place] [phone] Patient - Rolando Peters, Age - 79 y.o. - 1945 Room Number - B2-251/B2-251 A Consulting - Nataly Wilson MD Primary Care Physician - CELIA AL DO Date of Admission - 08/26/2024 3:36 PM Hospital Day - 3 Chief Complaint Rolando Peters is a 79 y.o. female who pulmonary is following for OP, pleural effusion Interval History Patient is feeling better, hoping to go home soon. States the breathing treatments are helping her. All other systems reviewed Objective Vitals: BP (!) 160/49 Pulse 65 Temp 37 C (98.6 F) (Temporal) Resp 16 Ht 5' 7 (1.702 m) Wt 140 lb (63.5 kg) SpO2 95% BMI 21.93 kg/m Pulse Ox: SpO2 Av.3 % Min: 95 % Max: 96 % Supplemental O2: I/O 24HR INTAKE/OUTPUT: Intake/Output Summary (Last 24 hours) at 08/29/2024 1230 Last data filed at 08/29/2024 1158 Gross per 24 hour Intake 800 ml Output 1150 ml Net -350 ml Exam General appearance: Awake, alert, no acute distress. On RA Cardiovascular: Regular rate and rhythm. Heart sounds normal. Negative for murmur, friction rub or gallop. Pulmonary: Effort normal, no respiratory distress. No stridor Musculoskeletal: ROM normal, Negative for swelling, tenderness or deformity. Skin: Warm and dry. Skin is not jaundiced. No rash Extremities: No clubbing, cyanosis, or extremity edema Neurological: No focal deficits. AT neurological baseline Psychiatric: Mood, behavior, thought content normal. Cooperative with exam. Medications Current Medications amLODIPine, 2.5 mg, Oral, Daily apixaban, 5 mg, Oral, BID atovaquone, 1,500 mg, Oral, Daily carvedilol, 12.5 mg, Oral, BID WC cholecalciferol, 4,000 Units, Oral, Daily ezetimibe, 10 mg, Oral, Daily Finerenone, 1 tablet, Oral, Daily [START ON 08/30/2024] furosemide, 20 mg, Oral, Daily insulin lispro, 0-6 Units, SubCUTAneous, TID WC And insulin lispro, 0-6 Units, SubCUTAneous, Nightly ipratropium-albuterol, 3 mL, Nebulization, TID losartan, 100 mg, Oral, Daily mometasone-formoterol, 2 puff, Inhalation, BID pantoprazole, 40 mg, Oral, qAM AC predniSONE, 60 mg, Oral, Daily rosuvastatin, 10 mg, Oral, Daily sertraline, 25 mg, Oral, Daily tiotropium, 2 puff, Inhalation, Daily PRN Mediations PRN medications: acetaminophen OR acetaminophen, albuterol, dextrose, dextrose, glucagon (rDNA), glucose, guaiFENesin, hydrALAZINE, polyethylene glycol (PEG) 3350 IV Drips/Infusions Labs CBC Results from last 7 days Lab Units 08/29/24 0404 WBC AUTO 10*3/uL 7.8 HEMOGLOBIN g/dL 10.0* HEMATOCRIT % 31.6* PLATELETS 10*3/uL 237 BMP: Results from last 7 days Lab Units 08/29/24 0404 08/28/24 0417 08/27/24 0657 SODIUM mmol/L 136 135* 136 POTASSIUM mmol/L 4.1 3.7 4.3 CHLORIDE mmol/L 100 103 105 CO2 mmol/L 25 21* 20* BUN mg/dL 37* 28* 28* CREATININE mg/dL 1.09 1.10 1.01 GLUCOSE mg/dL 147* 155* 108 CALCIUM mg/dL 8.7* 8.4* 8.7* ABG: LIVER PROFILE Results from last 7 days Lab Units 08/29/24 0404 08/28/24 0417 08/27/24 0657 ALK PHOS U/L 52 50 52 BILIRUBIN TOTAL mg/dL 0.4 0.5 0.5 PROTEIN TOTAL g/dL 6.2* 6.0* 6.1* ALT U/L 30* 24 28 AST U/L 24 24 28 INR PTT No results found for: PTT Cultures Radiology Personally reviewed and interpreted by de Ct chest from 08/26 shows moderate right pleural effusion and small left one Cxr from today shows small to moderate pleural effusion. 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) Diabetes (HCC) History of bilateral mastectomy History of chemotherapy S/P breast reconstruction, bilateral Dyslipidemia BRCA1 positive History of anesthesia problem Spondylosis without myelopathy or radiculopathy, lumbosacral region Low back pain History of COVID-19 Orthostatic hypotension 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) Impingement syndrome of right shoulder Multiple pulmonary nodules Proteinuria CKD stage G2/A3, 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/g Other nonspecific abnormal finding of lung field Pneumothorax On continuous oral anticoagulation On amiodarone therapy Elevated LFTs 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) Persistent atrial fibrillation (HCC) Exertional shortness of breath Assessment and Plan Multifactorial dyspnea BL pleural effusions R> L unclear etiology Severe COPD Organizing PNA restarted on steroid taper Discussed with patient, recommend diagnostic and therapeutic thoracentesis now while here to prevent fibrinothorax, she will ponder, she is already on prednisone with PCP prophy. She should cotinue this until OP pulmonary follow up. OK to DC Case discussed with nurse and patient/family. Questions and concerns addressed. * Marcia Correa APRN - WINDOWS TECHNICAL SPECIALIST - 08/29/2024 8:39 AM EST [facility] [place] [facility] [place]Electrophysiology Progress Note HPI / Interval History: Rolando Peters is a 79 y.o. year old female patient known to Dr. Jerome with a hx of CKD, tobacco abuse, HTN, COPD, A Fib s/p pulse field ablation 05/05/2024, INGA, and HFpEF in the setting of A fib 01/2024. She presented to [facility] due to dyspnea. In brief, She awoke with symptoms of sudden SOB and chest discomfort with radiation to her back, lasting about 3 hours. She was hypertensive, HS Tn negative, CTA negative for dissection, but did showpossible diffuse CAD and possible occlusion of the right iliac artery. BNP elevated-6,947, but stable compared to 7 months ago. Her breathing has improved with IV lasix. She is also being followed for organized pneumonia per pulmonary and is high dose antibiotics and recently started prednisone a few days. Recent Echo 07/25/2024- EF-55%, normal wall motion, moderate MR, mild stenosis. She has beenmaintaining a SR since her ablation 04/2024. Would consider an outpatient Lexiscan stress test for risk stratification. Would recommend improved blood pressure control. May be more elevated due to steroids in the setting pneumonia. This morning she feels well. Maintaining SR. She denies chest pain, palpitations, SOB, and edema. Feels ready to go home. Assessment/Plan HF NYHA Class [] I [] II [] III [] IV []Unable to assess [] N/A Chest pain and dyspnea: - Denies all anginal complaints - HS Tn negative - chest discomfort may have been attributed to hypertension and fluid retention, aggravated by her recent initiation of prednisone for her organizing pneumonia. - amlodipine added today to her medication regimen - Coreg 12.5 mg twice daily and losartan 100 mg daily continues - Will stop IV Lasix 40 mg BID; instead of her usual Lasix 20 mg PRN home dose we will increase to Lasix 20 mg daily - she had a CTA with evidence of vascular disease and diffuse atherosclerotic disease throughout her aorta and even a possible occlusion of the right iliac artery. - she is recommended for an outpatient lexiscan nuclear stress test for risk stratification once her respiratory status is improved. - she is also followed per Pulmonology. 2. Hypertension: elevated, may be aggravated due to recent addition of Prednisone as noted above - amlodipine 2.5 mg daily to start 08/29 - today - Coreg and losartan continues - may need to taper BP meds once prednisone therapy is complete 3. History of persistent atrial fibrillation: - Maintaining SR - 4 months s/p ablation - continues to be anticoagulated on Eliquis 5 mg twice daily, appropriate per age/wt/creat - Coreg 12.5 mg twice daily continues for rate control in the event if she has recurrence of a-fib. 4. Disposition: She has a follow up appointment scheduled with Dr. Jerome October 31, 2024. She states she would like to follow up with her PCP in the interim. She is advised to be seen by her PCP with in 2 weeks of DC. Medications: amLODIPine, 2.5 mg, Oral, Daily apixaban, 5 mg, Oral, BID atovaquone, 1,500 mg, Oral, Daily carvedilol, 12.5 mg, Oral, BID WC cholecalciferol, 4,000 Units, Oral, Daily ezetimibe, 10 mg, Oral, Daily Finerenone, 1 tablet, Oral, Daily furosemide, 40 mg, IntraVENous, BID insulin lispro, 0-6 Units, SubCUTAneous, TID WC And insulin lispro, 0-6 Units, SubCUTAneous, Nightly ipratropium-albuterol, 3 mL, Nebulization, TID losartan, 100 mg, Oral, Daily mometasone-formoterol, 2 puff, Inhalation, BID pantoprazole, 40 mg, Oral, qAM AC predniSONE, 60 mg, Oral, Daily rosuvastatin, 10 mg, Oral, Daily sertraline, 25 mg, Oral, Daily tiotropium, 2 puff, Inhalation, Daily Infusion Medications: Physical Examination: Vitals: 08/28/24 2345 08/29/24 0256 08/29/24 0825 08/29/24 0828 BP: (!) 175/70 (!) 179/61 (!) 160/49 (!) 160/49 Pulse: 70 62 63 63 Resp: 18 18 16 Temp: 36.4 C (97.5 F) 36.7 C (98 F) 37 C (98.6 F) TempSrc: Temporal Temporal Temporal SpO2: 95% 95% 96% Weight: Height: Intake/Output Summary (Last 24 hours) at 08/29/2024 0839 Last data filed at 08/29/2024 0828 Gross per 24 hour Intake 1100 ml Output 750 ml Net 350 ml Patient Vitals for the past 168 hrs: Weight 08/26/24 1546 140 lb (63.5 kg) Physical Exam Constitutional: NAD Psychiatric: Alert. Medical insight good Neck: No JVD Respiratory: Lungs are diminished Heart: SR ; Nl S1 and S2, 1/6 murmur, no rub, gallop Abdomen: NABS; soft, non-tender, non-distended Extremities: no LE edema Skin: Warm to touch and well perfused Laboratory Tests: TROPONIN I, CONVENTIONAL SENSITIVITY CK Date Value Ref Range Status 06/14/2020 49 30 - 170 U/L Final 08/22/2019 67 30 - 170 U/L Final TROPONIN I Date Value Ref Range Status 01/19/2024 0.026 <0.034 ng/mL Final 01/19/2024 0.021 <0.034 ng/mL Final TROPONIN I, HIGH SENSITIVITY Troponin HS, Serial Baseline Date Value Ref Range Status 08/26/2024 22 (H) <=14 ng/L Final Troponin HS, Serial Second Date Value Ref Range Status 08/26/2024 19 (H) <=14 ng/L Final Troponin HS Delta, Baseline to Second Date Value Ref Range Status 08/26/2024 -3 <=2 ng/L Final Comment: A troponin delta greater than or equal to 15 ng/L is significant for acute cardiac injury. Values less than 15 but greater than 2 are an intermediate change requiring a 3rd serial troponin to be drawn. Values less than or equal to 2 indicate acute cardiac injury is not likely, see external algorithmsfor further clinical guidance. No results found for: TROPHS3 No results found for: TROPDELTSEC Recent Labs 08/26/24 1606 08/27/24 0657 08/28/24 0417 08/29/24 0404 NA 135* 136 135* 136 K 4.7 4.3 3.7 4.1 CL 106 105 103 100 CO2 20* 20* 21* 25 BUN 27* 28* 28* 37* CREATININE 1.02 1.01 1.10 1.09 Recent Labs 08/26/24 1606 08/27/24 0657 08/28/24 0417 08/29/24 0404 WBC 7.9 7.6 7.0 7.8 HGB 9.9* 9.5* 9.7* 10.0* HCT 31.2* 29.6* 30.4* 31.6* MCV 91.2 89.7 89.1 90.3 PLT 235 225 233 237 Recent Labs 08/26/24 1606 BNP 6,947* No results for input(s): TRIG, HDL, LDLCALC, CHOL in the last 72 hours. No results found for: LDLCHOLESTER Lab Results Component Value Date TSH 1.13 12/03/2022 EF BP Date Value Ref Range Status 07/25/2024 55 55 - 100 % Final EF Physician Date Value Ref Range Status 01/22/2024 48 % Final 07/25/24 TRANSTHORACIC ECHOCARDIOGRAM (TTE) COMPLETE (CONTRAST/BUBBLE/3D PRN) 07/25/2024 4:27 PM (Final) Interpretation Summary Left Ventricle: Left ventricle size is normal. Normal wall thickness. Normal left ventricular systolic function. EF by 2D Simpsons Biplane is 55%. Normal wall motion. Grade II diastolic dysfunction with increased LAP. Right Ventricle: Right ventricle size is normal. Normal systolic function. Aortic Valve: Mild (1+) regurgitation. Mild stenosis of the aortic valve. AV mean gradient is 7 mmHg. Mitral Valve: Moderately thickened leaflets. Mildly calcified leaflets. Mild annular calcification.Moderate (2+) regurgitation with a posterior directed jet. Mild stenosis noted. Tricuspid Valve: Mild to moderate (1-2+) regurgitation. RVSP is 72 mmHg. Signed by: Fabiola Potter on 07/25/2024 4:27 PM Other reports reviewed: Cardiac Tests: ECG: Tracing reviewed. Telemetry findings reviewed: SR 68 EF BP Date Value Ref Range Status 07/25/2024 55 55 - 100 % Final EF Physician Date Value Ref Range Status 01/22/2024 48 % Final SUJATA Bullock CNP Date Of Service 08/29/2024 * Nataly Wilson MD - 08/28/2024 12:22 PM EST Hospitalist Progress Note 08/28/2024 Subjective: Admit Date: 08/26/2024 PCP: CELIA AL DO Room#: B2-250/B2-250 B BRIEF HOSPITAL COURSE: Rolando is a 79 y.o. female with past medical history organizing PNA, DM2, INGA, COPD, CKD3, history of pulm nodules, pAF, HFpEF, h/o breast CA who presents with chief complaint of dyspnea on exertion, CP, back pain. Hx of organizing PNA and follows with [facility]. S/p ENB/EBUS 10/05/23. 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 Right middle lobe biopsy also with adjacent acellular material. TBNA with RML with atypical cells, RLL nondiagnostic, LN 7, 4R, 11R negative for malignancy. Pneumonia PCR, bacterial culture, fungal stain/culture, AFB stain/culture, silver stain, Aspergillus galactomannan, beta D glucan negative. Autoimmune evaluation with WERO, ANCA, RF, anti-CCP, Sjogren's antibody, myositis panel, HP panel negative. Prior infectious evaluation negative. Completed MBS, negative foraspiration. Unclear etiology for organizing pneumonia. In the ER, vitals significant for BP 190s/70s, labs significant for BNP 6947, GFR 56.4, trop 22-->19, Hgb 9.9. CTA was obtained to rule out PE or dissection, this showed multiple pulm nodules, b/l pleural effusions and multiple areas of atherosclerosis but otherwise unremarkable. CXR showed interstitial edema. Of note, she was recently seen by pulm 08/19 for follow-up regarding multiple lung nodules who placed her on prolonged steroid course due to similar symptoms of CRUZ in the setting of organizing PNA. She is on atovaquone for PCP prophylaxis. There was some discussion of possible thoracentesis for R pleural effusion, she was hopingto defer for repeat imaging before making that decision. Will admit for further evaluation and management. Patient had a recent echo on 07/25/24 consistent with an EF of 55%, moderate MR, mild stenosis of the aortic valve, mild to moderate tricuspid valve. Treated with IV Lasix 20 mg, will increase to IV 40 twice daily with strict I's and O's. No need to repeat echo. Started on IV diuresis with cardiology consulted Interval History: No overnight issues. Case and plan discussed with patient and bedside nurse. All questions answered. Adult diet Regular; Low Fat/Low Chol/High Fiber/2 gm Na 24HR INTAKE/OUTPUT: Intake/Output Summary (Last 24 hours) at 08/28/2024 1222 Last data filed at 08/28/2024 1154 Gross per 24 hour Intake 200 ml Output 3700 ml Net -3500 ml Past Medical History: Past Medical History: Diagnosis Date Arrhythmia Arthritis Asthma Breast cancer (HCC) 1993 Right Breast(Mastectomy) Breast cancer (HCC) 2010 Left Breast(Simple Mastectomy, SLND) Chronic kidney disease COPD (chronic obstructive pulmonary disease) (HCC) Coronary artery disease Diabetes (HCC) Emphysema of lung (HCC) Within last year GERD (gastroesophageal reflux disease) High blood pressure Lung nodule -2022 Occlusion and stenosis of unspecified carotid artery Pure hypercholesterolemia Syncope and collapse 08/29/2022 LABS: CBC: Recent Labs 08/26/24 1606 08/27/24 0657 08/28/24 0417 WBC 7.9 7.6 7.0 RBC 3.42* 3.30* 3.41* HGB 9.9* 9.5* 9.7* HCT 31.2* 29.6* 30.4* MCV 91.2 89.7 89.1 RDW 14.6 14.6 14.7 PLT 235 225 233 BMP: Recent Labs 08/26/24 1606 08/27/24 0657 08/28/247 NA 135* 136 135* K 4.7 4.3 3.7 CL 106 105 103 CO2 20* 20* 21* BUN 27* 28* 28* CREATININE 1.02 1.01 1.10 GLUCOSE 171* 108 155* CALCIUM 8.7* 8.7* 8.4* ANIONGAP 9 11 11 LIVER PROFILE: Recent Labs 08/26/24 1606 08/27/24 0657 08/28/24416 AST 36* 28 24 ALT 35* 28 24 BILITOT 0.6 0.5 0.5 ALKPHOS 57 52 50 PROT 6.6 6.1* 6.0* PT/INR: No results for input(s): PROTIME, INR in the last 72 hours. CARDIAC ENZYMES: No results for input(s): TROPONINI in the last 72 hours. Procalcitonin: Lab Results Component Value Date PROCAL 0.05 08/27/2024 COVID-19 PCR: No results for input(s): COVID19 in the last 72 hours. Objective: Vitals: BP 157/53 Pulse 81 Temp 36.3 C (97.3 F) (Temporal) Resp 16 Ht 5' 7 (1.702 m) Wt 140 lb (63.5 kg) SpO2 96% BMI 21.93 kg/m Pulse Ox: SpO2 Av.6 % Min: 95 % Max: 98 % Supplemental O2: Physical Exam Constitutional: Appearance: She is obese. She is not ill-appearing. Cardiovascular: Rate and Rhythm: Normal rate. Heart sounds: No murmur heard. Pulmonary: Effort: No respiratory distress. Breath sounds: Rhonchi present. No wheezing. Abdominal: General: There is no distension. Tenderness: There is no abdominal tenderness. Musculoskeletal: General: Swelling present. Neurological: Mental Status: Mental status is at baseline. Medications: Scheduled PRN amLODIPine, 2.5 mg, Oral, Daily apixaban, 5 mg, Oral, BID atovaquone, 1,500 mg, Oral, Daily carvedilol, 12.5 mg, Oral, BID WC cholecalciferol, 4,000 Units, Oral, Daily ezetimibe, 10 mg, Oral, Daily Finerenone, 1 tablet, Oral, Daily furosemide, 40 mg, IntraVENous, BID insulin lispro, 0-6 Units, SubCUTAneous, TID WC And insulin lispro, 0-6 Units, SubCUTAneous, Nightly ipratropium-albuterol, 3 mL, Nebulization, TID losartan, 100 mg, Oral, Daily mometasone-formoterol, 2 puff, Inhalation, BID pantoprazole, 40 mg, Oral, qAM AC predniSONE, 60 mg, Oral, Daily rosuvastatin, 10 mg, Oral, Daily sertraline, 25 mg, Oral, Daily tiotropium, 2 puff, Inhalation, Daily PRN medications: acetaminophen OR acetaminophen, albuterol, dextrose, dextrose, glucagon (rDNA), glucose, guaiFENesin, hydrALAZINE, polyethylene glycol (PEG) 3350 Continuous Assessment Data: (CAT1) Reviewed 3 or more notes from different specialty or health system (each=1). (CAT1) Reviewed 3 or more labs/studies ordered by another provider not previously counted (each=1, panels count as 1). (CAT1) Reviewed 3 or more labs/studies previously ordered by me not previously counted (each=1, panels count as 1). (CAT1) Ordered 3 or more new labs and/or studies (each=1, panels count as 1). (LOW: 2x CAT1 or independent historian MOD: 3x CAT1 or 1x CAT3 EXTENSIVE: 3x CAT1 and 1x CAT3) Acute, acute on chronic, unstable/uncontrolled chronic problems/diagnoses: Acute on chronic HFpEF Bilateral pleural effusions Stable chronic problems affecting care, new non-acute diagnoses: CAD HTN HLD CKD stage III Hx of organizing PNA on Atovaquone PAF s/p ablation INGA COPD/asthma overlap Type 2 DM Hx of stage I triple negative breast cancer s/p left mastectomy 05/2011, right- sided breast cancer s/p mastectomy 06/1994 s/p adjuvant chemo/tamoxifen Hx of pulmonary nodules Hx of tobacco use GERD Plan As a result of the above findings & factors, the following mgmt was pursued: -Cardiology following and states that chest discomfort attributed hypertension fluid retention aggravated by recent initiation of prednisone for treatment of organizing pneumonia. Recommends continuing IV Lasix until tomorrow. Will transition to oral Lasix on discharge -Continue on steroid therapy and appreciate pulmonary recommendations -Anticipate discharge home tomorrow - Discussed with nurse - am labs, replace lytes prn - PT/OT/CM/SW - delirium precautions: increase activity - DVT prophylaxis: encourage ambulation and already anticoagulated Complexity: Acute illness or injury posing a threat to life or body function (HIGH). Chronic illness with severe exacerbation, progression, or side effect of tx (HIGH). Risk: Admission to hospital-level care was considered or occurred (HIGH). Advance Directive: Full Code Anticipated Discharge - Date - 08/29 - Location - Home with Home Health Care - Pending the following - Resp status Total time spent (which include face to face and non face to face encounters) : 52 minutes Toxic drug monitoring/narrow therapeutic index drug monitoring : # Drug name : Eliquis # Route administered : oral # Method of monitoring : CBC Extended Emergency Contact Information Primary Emergency Contact: Jin Peters Address: [address] [place] [id number] [place] [address] Mobile Relation: Spouse Secondary Emergency Contact: Ene Negrete Address: [address] Mobile Relation: Daughter Nataly Wilson MD Division of Hospitalist Medicine [facility] * Mariaelena Guzman, DEWATERER OPERATOR - WINDOWS TECHNICAL SPECIALIST - 08/28/2024 8:03 AM EST [facility] [place] [facility] [place]Electrophysiology Progress Note HPI / Interval History: Rolando Peters, 79 year old female presents to [facility] due to dyspnea. She awoke with symptoms of sudden SOB and chest discomfort with radiation to her back, lasting about 3 hours. She was hypertensive, HS Tn negative, CTA negative for dissection, but did show possible diffuse CAD and possible occlusion of the right iliac artery. BNP elevated-6,947, but stable compared to 7 months ago. He r breathing has improved with IV lasix. She is also being followed for organized pneumonia per pulmonary and is high dose antibiotics and recently started prednisone a few days. Recent Echo 07/25/2024- EF-55%, normal wall motion, moderate MR, mild stenosis. She has been maintaining a SR since her ablation 04/2024. Would consider an outpatient Lexiscan stress test for risk stratification. Would recommend improved blood pressure control. May be more elevated due to steroids in the setting pneumonia. Pt started on amlodipine 5 mg daily today. She has a hx of breast cancer, CKD stage II, tobacco abuse, HTN, COPD, hypertension, atrial fib S/Ppulse field ablation 05/05/24, INGA, HFpEF in setting of atrial fib in January 2024. She states she is feeling OK. She feels her breathing is improving. She has no specific complaints of chest discomfort. Assessment/Plan HF NYHA Class [] I [] II [] III [] IV [x]Unable to assess [] N/A Chest pain and dyspnea: She has had no symptoms of chest discomfort today. - HS Tn negative - chest discomfort may have been attributed to hypertension and fluid retention, aggravated by her recent initiation of prednisone for her organizing pneumonia. - amlodipine 5 mg daily added today to her medication regimen - Coreg 12.5 mg twice daily and losartan 100 mg daily continues - she has mildly worsening SHIRIN, she has a small effusion noted on her CXR today. Will consider discontinuing IV lasix tomorrow. She appears to take as needed Lasix 20 mg at home. Will continue to monitor daily labs. - she had a CTA with evidence of vascular disease and diffuse atherosclerotic disease throughout her aorta and even a possible occlusion of the right iliac artery. - she is recommended for an outpatient lexiscan nuclear stress test for risk stratification once her respiratory status is improved. - she is also followed per Pulmonology. 2. Hypertension: elevated, may be aggravated due to recent addition of Prednisone as noted above - amlodipine 5 mg daily added today - Coreg and losartan continues - may need to taper BP meds once prednisone therapy is complete 3. History of persistent atrial fibrillation: Maintaining a SR - 4 months s/p ablation - continues to be anticoagulated on Eliquis 5 mg twice daily - Coreg 12.5 mg twice daily continues for rate control in the event if she has recurrence of a-fib. 4. Disposition: She has a follow up appointment scheduled with Dr. Jerome October 31, 2024. She states she would like to follow up with her PCP in the interim. I advised she be seen by her PCP with in 2 weeks of DC. Medications: apixaban, 5 mg, Oral, BID atovaquone, 1,500 mg, Oral, Daily carvedilol, 12.5 mg, Oral, BID WC cholecalciferol, 4,000 Units, Oral, Daily ezetimibe, 10 mg, Oral, Daily Finerenone, 1 tablet, Oral, Daily furosemide, 40 mg, IntraVENous, BID insulin lispro, 0-6 Units, SubCUTAneous, TID WC And insulin lispro, 0-6 Units, SubCUTAneous, Nightly ipratropium-albuterol, 3 mL, Nebulization, TID losartan, 100 mg, Oral, Daily mometasone-formoterol, 2 puff, Inhalation, BID pantoprazole, 40 mg, Oral, qAM AC predniSONE, 60 mg, Oral, Daily rosuvastatin, 10 mg, Oral, Daily sertraline, 25 mg, Oral, Daily tiotropium, 2 puff, Inhalation, Daily Infusion Medications: Physical Examination: Vitals: 08/27/24 1926 08/27/24 2116 08/27/24 2300 08/28/24 0305 BP: (!) 173/63 134/50 (!) 172/54 BP Location: Patient Position: Pulse: 83 85 82 64 Resp: 18 18 18 18 Temp: 36.7 C (98.1 F) 36.7 C (98 F) 36.6 C (97.8 F) TempSrc: Temporal Temporal Temporal SpO2: 98% 97% 96% Weight: Height: Intake/Output Summary (Last 24 hours) at 08/28/2024 0803 Last data filed at 08/27/2024 2207 Gross per 24 hour Intake 200 ml Output 3200 ml Net -3000 ml Patient Vitals for the past 168 hrs: Weight 08/26/24 1546 140 lb (63.5 kg) Physical Exam Constitutional: NAD Psychiatric: Alert. Medical insight good Neck: No JVD Respiratory: Lungs are diminished, no wheezes on exam Heart: regular, rate controlled ; Nl S1 and S2, no murmur, no rub, gallop Abdomen: NABS; soft, non-tender, non-distended Extremities: no LE edema Skin: Warm to touch and well perfused Laboratory Tests: TROPONIN I, CONVENTIONAL SENSITIVITY CK Date Value Ref Range Status 06/14/2020 49 30 - 170 U/L Final 08/22/2019 67 30 - 170 U/L Final TROPONIN I Date Value Ref Range Status 01/19/2024 0.026 <0.034 ng/mL Final 01/19/2024 0.021 <0.034 ng/mL Final TROPONIN I, HIGH SENSITIVITY Troponin HS, Serial Baseline Date Value Ref Range Status 08/26/2024 22 (H) <=14 ng/L Final Troponin HS, Serial Second Date Value Ref Range Status 08/26/2024 19 (H) <=14 ng/L Final Troponin HS Delta, Baseline to Second Date Value Ref Range Status 08/26/2024 -3 <=2 ng/L Final Comment: A troponin delta greater than or equal to 15 ng/L is significant for acute cardiac injury. Values less than 15 but greater than 2 are an intermediate change requiring a 3rd serial troponin to be drawn. Values less than or equal to 2 indicate acute cardiac injury is not likely, see external algorithmsfor further clinical guidance. No results found for: TROPHS3 No results found for: TROPDELTSEC Recent Labs 08/26/24 1606 08/27/24 0657 08/28/24 0417 NA 135* 136 135* K 4.7 4.3 3.7 CL 106 105 103 CO2 20* 20* 21* BUN 27* 28* 28* CREATININE 1.02 1.01 1.10 Recent Labs 08/26/24 1606 08/27/24 0657 08/28/24 0417 WBC 7.9 7.6 7.0 HGB 9.9* 9.5* 9.7* HCT 31.2* 29.6* 30.4* MCV 91.2 89.7 89.1 PLT 235 225 233 Recent Labs 08/26/24 1606 BNP 6,947* No results for input(s): TRIG, HDL, LDLCALC, CHOL in the last 72 hours. No results found for: LDLCHOLESTER Lab Results Component Value Date TSH 1.13 12/03/2022 EF BP Date Value Ref Range Status 07/25/2024 55 55 - 100 % Final EF Physician Date Value Ref Range Status 01/22/2024 48 % Final 07/25/24 TRANSTHORACIC ECHOCARDIOGRAM (TTE) COMPLETE (CONTRAST/BUBBLE/3D PRN) 07/25/2024 4:27 PM (Final) Interpretation Summary Left Ventricle: Left ventricle size is normal. Normal wall thickness. Normal left ventricular systolic function. EF by 2D Simpsons Biplane is 55%. Normal wall motion. Grade II diastolic dysfunction with increased LAP. Right Ventricle: Right ventricle size is normal. Normal systolic function. Aortic Valve: Mild (1+) regurgitation. Mild stenosis of the aortic valve. AV mean gradient is 7 mmHg. Mitral Valve: Moderately thickened leaflets. Mildly calcified leaflets. Mild annular calcification.Moderate (2+) regurgitation with a posterior directed jet. Mild stenosis noted. Tricuspid Valve: Mild to moderate (1-2+) regurgitation. RVSP is 72 mmHg. Signed by: Fabiola Potter on 07/25/2024 4:27 PM Other reports reviewed: Cardiac Tests: EC08/26/2024- IMPRESSION: Sinus rhythm Electronically Signed On 08-26-2024 16:03:13 EST by Leticia Landa Tracing reviewed. Telemetry findings reviewed: SR- 86 EF BP Date Value Ref Range Status 07/25/2024 55 55 - 100 % Final EF Physician Date Value Ref Range Status 01/22/2024 48 % Final SUJATA Cabezas CNP Date Of Service 08/28/2024 * Kinza Rosales - 08/28/2024 7:42 AM EST Nutrition rescreen complete. Pt assigned a level one for nutrition care. * Nataly Wilson MD - 08/27/2024 8:23 AM EST Hospitalist Progress Note 08/27/2024 Subjective: Admit Date: 08/26/2024 PCP: CELIA AL DO Room#: 36/36 BRIEF HOSPITAL COURSE: Rolando is a 79 y.o. female with past medical history organizing PNA, DM2, INGA, COPD, CKD3, history of pulm nodules, pAF, HFpEF, h/o breast CA who presents with chief complaint of dyspnea on exertion, CP, back pain. Hx of organizing PNA and follows with [facility]. S/p ENB/EBUS 10/05/23. 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 Right middle lobe biopsy also with adjacent acellular material. TBNA with RML with atypical cells, RLL nondiagnostic, LN 7, 4R, 11R negative for malignancy. Pneumonia PCR, bacterial culture, fungal stain/culture, AFB stain/culture, silver stain, Aspergillus galactomannan, beta D glucan negative. Autoimmune evaluation with WERO, ANCA, RF, anti-CCP, Sjogren's antibody, myositis panel, HP panel negative. Prior infectious evaluation negative. Completed MBS, negative foraspiration. Unclear etiology for organizing pneumonia. In the ER, vitals significant for BP 190s/70s, labs significant for BNP 6947, GFR 56.4, trop 22-->19, Hgb 9.9. CTA was obtained to rule out PE or dissection, this showed multiple pulm nodules, b/lpleural effusions and multiple areas of atherosclerosis but otherwise unremarkable. CXR showed interstitial edema. Of note, she was recently seen by pulm / for follow-up regarding multiple lung nodules who placed her on prolonged steroid course due to similar symptoms of CRUZ in the setting of organizing PNA. She is on atovaquone for PCP prophylaxis. There was some discussion of possible thoracentesis for R pleural effusion, she was hoping to defer for repeat imaging before making that decision . Will admit for further evaluation and management. Interval History: No overnight issues. Feels better this am after lasix. Case and plan discussed with patient and bedside nurse. All questions answered. Adult diet Regular; Low Fat/Low Chol/High Fiber/2 gm Na 24HR INTAKE/OUTPUT: No intake or output data in the 24 hours ending 08/27/24 0823 Past Medical History: Past Medical History: Diagnosis Date Arrhythmia Arthritis Asthma Breast cancer (HCC) 1993 Right Breast(Mastectomy) Breast cancer (HCC) 2010 Left Breast(Simple Mastectomy, SLND) Chronic kidney disease COPD (chronic obstructive pulmonary disease) (HCC) Coronary artery disease Diabetes (HCC) Emphysema of lung (HCC) Within last year GERD (gastroesophageal reflux disease) High blood pressure Lung nodule -2022 Occlusion and stenosis of unspecified carotid artery Pure hypercholesterolemia Syncope and collapse 08/29/2022 LABS: CBC: Recent Labs 08/26/24 1606 08/27/24 0657 WBC 7.9 7.6 RBC 3.42* 3.30* HGB 9.9* 9.5* HCT 31.2* 29.6* MCV 91.2 89.7 RDW 14.6 14.6 PLT 235 225 BMP: Recent Labs 08/26/24 1606 08/27/24 0657 NA 135* 136 K 4.7 4.3 CL 106 105 CO2 20* 20* BUN 27* 28* CREATININE 1.02 1.01 GLUCOSE 171* 108 CALCIUM 8.7* 8.7* ANIONGAP 9 11 LIVER PROFILE: Recent Labs 08/26/24 1606 08/27/24 0657 AST 36* 28 ALT 35* 28 BILITOT 0.6 0.5 ALKPHOS 57 52 PROT 6.6 6.1* PT/INR: No results for input(s): PROTIME, INR in the last 72 hours. CARDIAC ENZYMES: No results for input(s): TROPONINI in the last 72 hours. Procalcitonin: No results found for: PROCAL COVID-19 PCR: No results for input(s): COVID19 in the last 72 hours. Objective: Vitals: BP (!) 188/55 (BP Location: Left arm, Patient Position: Lying) Pulse 65 Temp 36.9 C (98.5 F) (Oral) Resp 18 Ht 5' 7 (1.702 m) Wt 140 lb (63.5 kg) SpO2 98% BMI 21.93 kg/m Pulse Ox: SpO2 Av.7 % Min: 95 % Max: 98 % Supplemental O2: Physical Exam Constitutional: Appearance: She is obese. She is not ill-appearing. Cardiovascular: Rate and Rhythm: Normal rate. Heart sounds: No murmur heard. Pulmonary: Effort: No respiratory distress. Breath sounds: Rhonchi present. No wheezing. Abdominal: General: There is no distension. Tenderness: There is no abdominal tenderness. Musculoskeletal: General: Swelling present. Neurological: Mental Status: Mental status is at baseline. Medications: Scheduled PRN apixaban, 5 mg, Oral, BID atovaquone, 1,500 mg, Oral, Daily carvedilol, 12.5 mg, Oral, BID WC cholecalciferol, 4,000 Units, Oral, Daily ezetimibe, 10 mg, Oral, Daily Finerenone, 1 tablet, Oral, Daily insulin lispro, 0-6 Units, SubCUTAneous, TID WC And insulin lispro, 0-6 Units, SubCUTAneous, Nightly losartan, 100 mg, Oral, Daily pantoprazole, 40 mg, Oral, qAM AC predniSONE, 60 mg, Oral, Daily rosuvastatin, 10 mg, Oral, Daily sertraline, 25 mg, Oral, Daily tiotropium, 2 puff, Inhalation, Daily PRN medications: acetaminophen OR acetaminophen, albuterol, dextrose, dextrose, glucagon (rDNA), glucose, guaiFENesin, hydrALAZINE, polyethylene glycol (PEG) 3350 Continuous Assessment Data: (CAT1) Reviewed 3 or more notes from different specialty or health system (each=1). (CAT1) Reviewed 3 or more labs/studies ordered by another provider not previously counted (each=1, panels count as 1). (CAT1) Reviewed 3 or more labs/studies previously ordered by me not previously counted (each=1, panels count as 1). (CAT1) Ordered 3 or more new labs and/or studies (each=1, panels count as 1). (LOW: 2x CAT1 or independent historian MOD: 3x CAT1 or 1x CAT3 EXTENSIVE: 3x CAT1 and 1x CAT3) Acute, acute on chronic, unstable/uncontrolled chronic problems/diagnoses: Acute on chronic HFpEF Bilateral pleural effusions Stable chronic problems affecting care, new non-acute diagnoses: CAD HTN HLD CKD stage III Hx of organizing PNA on Atovaquone PAF s/p ablation INGA COPD/asthma overlap Type 2 DM Hx of stage I triple negative breast cancer s/p left mastectomy 05/2011, right- sided breast cancer s/p mastectomy 06/1994 s/p adjuvant chemo/tamoxifen Hx of pulmonary nodules Hx of tobacco use GERD Plan As a result of the above findings & factors, the following mgmt was pursued: -Patient had a recent echo on 07/25/24 consistent with an EF of 55%, moderate MR, mild stenosis of the aortic valve, mild to moderate tricuspid valve. Treated with IV Lasix 20 mg, will increase to IV 40 twice daily with strict I's and O's. No need to repeat echo. Cardiology on consult -Infectious etiology less likely at this no leukocytosis. Will check a procalcitonin, RVP, pneumonia PCR and respiratory culture along with urinary antigens. Hold off antibiotics at this time -Patient has a history of organizing pneumonia with COPD and asthma overlap. Remains on prednisone therapy. Will add on DuoNebs and pulmonary consulted by admitting team - Discussed with nurse and TCC during IDR's this morning - am labs, replace lytes prn - PT/OT/CM/SW - delirium precautions: increase activity - DVT prophylaxis: encourage ambulation and already anticoagulated Complexity: Acute illness or injury posing a threat to life or body function (HIGH). Chronic illness with severe exacerbation, progression, or side effect of tx (HIGH). Risk: Admission to hospital-level care was considered or occurred (HIGH). Advance Directive: Full Code Anticipated Discharge - Date - 08/29 - Location - Home with Home Health Care - Pending the following - Resp status Total time spent (which include face to face and non face to face encounters) : 62 minutes Toxic drug monitoring/narrow therapeutic index drug monitoring : # Drug name : Eliquis # Route administered : oral # Method of monitoring : CBC Extended Emergency Contact Information Primary Emergency Contact: LorraineJin [address]: [address] [place], [place] [address] [place] [address] Mobile Relation: Spouse Secondary Emergency Contact: Ene Negrete Address: [address] [place] Relation: Daughter Nataly Wilson MD Division of Hospitalist Medicine [facility] documented in this [facility]01-13-2025 Telephone encounter Note* Telephone Encounter - Karime Marie RN - 08/29/2024 1:35 PM EST Pt appeared on ED nuance search for lung nodules after 08/26/24 revealed the followin. Multiple lung nodules bilaterally, posterior which are unchanged but with a worsening cluster ofnodular densities in the right lower lobe. These are indeterminate but could be due to progressive infectious/inflammatory process. However, recommend either short-term follow-up imaging in three months or tissue sampling or PET/CT as a neoplasm is not excluded. 4. Bilateral pleural effusions, greater on the right, unchanged. Interlobular septal thickening andgroundglass opacities related to pulmonary edema. Referral: known to [facility] [facility] none Pt is documented as former smoker q 1993 Additional Risk Factors: org pna Pulm consulted during admission. Dr. Loyola saw patient noting bilateral pleural effusions right greater than left with unclear etiology. Patient was restarted on steroid taper for organizing pneumonia. Recommending diagnostic/therapeutic thoracentesis during admission. Patient will decide if she wants to proceed. Otherwise will follow-up with pulmonary on an outpatient basis. Scheduled for CT chest 09-30-2024 and follow-up with [facility] 10-[facility]-2024 [id number] NotePatient is agreeable to have procedure. Notified Stella Salas [facility]01-13-2025 Nurse Note* Tiffanie Blank RN - 08/29/2024 1:13 PM EST Patient is agreeable to have procedure. Notified Stella Salas [facility] [id number] Plan of care note* Care Plan - Tiffanie Blank RN - 08/29/2024 10:53 AM EST Problem: Safety - Adult Goal: Free from fall injury Outcome: Progressing Flowsheets (Taken 08/29/2024 0830) Free from fall injury: Instruct family/caregiver on patient safety Problem: Discharge Planning Goal: Discharge to home or other facility with appropriate resources Outcome: Progressing Problem: Chronic Conditions and Co-morbidities Goal: Patient's chronic conditions and co-morbidity symptoms are monitored and maintained or improved Outcome: Progressing [facility] [id number] NoteProblem: Safety - Adult Goal: Free from fall injury 08/28/2024 1715 by Juliet Asif RN Outcome: Progressing 08/28/2024 1307 by Juliet Asif RN Outcome: Progressing [facility] ambulating [facility] nava, [facility] Plan of care note* Care Plan - Juliet Asif RN - 08/28/2024 5:16 PM EST Problem: Safety - Adult Goal: Free from fall injury 08/28/2024 1715 by Juliet Asif RN Outcome: Progressing 08/28/2024 1307 by Juliet Asif RN Outcome: Progressing Pt ambulating in nava, no weakness [employer] Work Phone: [phone] Plan of care note* Care Plan - Juliet Asif RN - 08/28/2024 1:08 PM EST Problem: Chronic Conditions and Co-morbidities Goal: Patient's chronic conditions and co-morbidity symptoms are monitored and maintained or improved Outcome: Progressing Review home meds Problem: Discharge Planning Goal: Discharge to home or other facility with appropriate resources Outcome: Progressing Identify any home needs [facility] [id number] Plan of care note* Care Plan - Maite Low RN - 08/27/2024 6:19 PM EST Problem: Pain - Adult Goal: Verbalizes/displays adequate comfort level or baseline comfort level Outcome: Progressing Problem: Safety - Adult Goal: Free from fall injury Outcome: Progressing Problem: Discharge Planning Goal: Discharge to home or other facility with appropriate resources Outcome: Progressing Problem: Chronic Conditions and Co-morbidities Goal: Patient's chronic conditions and co-morbidity symptoms are monitored and maintained or improved Outcome: Progressing [facility]01-11-2025 Consult note* Jose Manuel Peña MD - 08/27/2024 3:49 PM EST Images from the original note were not included. 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) Diabetes (HCC) History of bilateral mastectomy History of chemotherapy S/P breast reconstruction, bilateral Dyslipidemia BRCA1 positive History of anesthesia problem Spondylosis without myelopathy or radiculopathy, lumbosacral region Low back pain History of COVID-19 Orthostatic hypotension 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 female female with past medical history significant for stage I triple negative breast cancer status post right mastectomy in June 1994, adjuvant chemotherapy/tamoxifen history of chronic kidney disease left mastectomy in May 2021 patient was seen in pulmonary clinic on 19 August [address] Marcus for PET avid multiple pulmonary nodules and progressive weight loss. Remote tobacco abuse quit about 30 years ago patient had undergone Bronchoscopy scope/EBUS on 05 October 2023 complicated by pneumothorax right middle lobe transbronchial lung biopsy lung parenchyma with organizing pneumonia right lower lobe transbronchial biopsy chronic inflammation and foci suggestive of organizing pneumonia Patient subsequently was started on prednisone patient was seen on August 19, 2024 for worsening dyspnea at this time patient was started on high-dose prednisone at 60 mg p.o. daily with a prolonged taper and atovaquone admitted to the hospital via emergency room on 26 August 2024 with complaints of chest pain and shortness of breath patient had a CT angiogram done, interpreted by me does not show evidence of pulmonary embolism multiple bilateral lung nodules most of which are stable moderate size right pleural effusion, increased in comparison to CAT scan in May Patient seen by cardiology today, recommended a possible stress test to rule out any cardiac etiology patient may have diastolic dysfunction related to severe hypertension CT angiography did not showevidence of vascular disease PMHx Past Medical History Past Medical History: Diagnosis Date Arrhythmia Arthritis Asthma Breast cancer (HCC) 1993 Right Breast(Mastectomy) Breast cancer (HCC) 2011 Left Breast(Simple Mastectomy, SLND) Chronic kidney disease COPD (chronic obstructive pulmonary disease) (HCC) Coronary artery disease Diabetes (HCC) Emphysema of lung (HCC) Within last year GERD (gastroesophageal reflux disease) High blood pressure Lung nodule -2022 Occlusion and stenosis of unspecified carotid artery Pure hypercholesterolemia Syncope and collapse 08/29/2022 Past Surgical History Past Surgical History: Procedure Laterality Date BRONCHOSCOPY CARDIAC ELECTROPHYSIOLOGY PROCEDURE N/A 05/05/2024 Performed by Walt Leigh MD at [facility] Cardiac Cath/EP Lab CAROTID ENDARTERECTOMY Right 2009 CATARACT EXTRACTION Bilateral 2006 CHEST TUBE INSERTION Right 10/05/2023 ENDOBRONCHIAL ULTRASOUND EBUS (HISTORICAL) 10/05/2023 LUNG BIOPSY MASTECTOMY Left 2010 simple/reconstruction/gingivagrapht MASTECTOMY Right 1993 reconstruction (TRAM) TOTAL ABDOMINAL HYSTERECTOMY W/ BILATERAL SALPINGOOPHORECTOMY 1998 TUBAL LIGATION 1979 Social History Social History Socioeconomic History Marital status: Spouse name: Not on file Number of children: Not on file Years of education: Not on file Highest education level: Not on file Occupational History Not on file Tobacco Use Smoking status: Former Current packs/day: 0.00 Average packs/day: 1 pack/day for 30.0 years (30.0 ttl pk-yrs) Types: Cigarettes Start date: 08/17/1963 Quit date: 08/17/1993 Years since quittin.0 Smokeless tobacco: Never 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: , 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[facility], 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, 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 Vaping Use Vaping status: Never Used Substance and Sexual Activity Alcohol use: Yes Alcohol/week: 2.0 - 16.0 standard drinks of alcohol Types: 2 Glasses of wine per week Comment: occ Drug use: No Comment: caffeine use: 1 cup of coffee a day Sexual activity: Not Currently Partners: Male control/protection: Other Other Topics Concern Not on file Social History Narrative Not on file Social Drivers of Health Financial Resource Strain: Not on file Food Insecurity: No Food Insecurity (01/19/2024) Hunger Vital Sign Worried About Running Out of Food in the Last Year: Never true Ran Out of Food in the Last Year: Never true Transportation Needs: No Transportation Needs (01/19/2024) PRAPARE - Transportation Lack of Transportation (Medical): No Lack of Transportation (Non-Medical): No Physical Activity: Not on file Stress: Not on file Social Connections: Not on file Intimate Partner Violence: Not At Risk (08/27/2024) Humiliation, Afraid, Rape, and Kick questionnaire Fear of Current or Ex-Partner: No Emotionally Abused: No Physically Abused: No Sexually Abused: No Housing Stability: Low Risk (01/19/2024) Housing Stability Vital Sign Unable to Pay for Housing in the Last Year: No Number of Places Lived in the Last Year: 1 Unstable Housing in the Last Year: No Family History Family History Problem Relation Name Age of Onset Ovarian cancer Mother 66 Heart attack Father Lucita (Mother) 76 High Blood Pressure Father Lucita (Mother) Macular degeneration Father Lucita (Mother) Cancer Father Lucita (Mother) Ovarian cancer Mother's Sister 45 Other ([id number]) Son neuofibromatosis, BRCA1 positive Neurofibromatosis Son High Blood Pressure Son Cancer Son hairy cell leukemia Breast cancer Cousin 42 +brca Bladder Cancer Cousin 19 Hypertension Sister Angie Kidney disease Sister Angie Hypertension Sister Mireya Sister Kidney disease Sister Mireya Sister Current Medications apixaban, 5 mg, Oral, BID atovaquone, 1,500 mg, Oral, Daily carvedilol, 12.5 mg, Oral, BID WC cholecalciferol, 4,000 Units, Oral, Daily ezetimibe, 10 mg, Oral, Daily Finerenone, 1 tablet, Oral, Daily furosemide, 40 mg, IntraVENous, BID insulin lispro, 0-6 Units, SubCUTAneous, TID WC And insulin lispro, 0-6 Units, SubCUTAneous, Nightly ipratropium-albuterol, 3 mL, Nebulization, TID losartan, 100 mg, Oral, Daily pantoprazole, 40 mg, Oral, qAM AC predniSONE, 60 mg, Oral, Daily rosuvastatin, 10 mg, Oral, Daily sertraline, 25 mg, Oral, Daily tiotropium, 2 puff, Inhalation, Daily PRN medications: acetaminophen OR acetaminophen, albuterol, dextrose, dextrose, glucagon (rDNA), glucose, guaiFENesin, hydrALAZINE, polyethylene glycol (PEG) 3350 IV Drips/Infusions Home Medications Medications Prior to Admission Medication Sig Dispense Refill Last Dose/Taking albuterol (Ventolin HFA) 108 (90 Base) MCG/ACT inhaler Inhale 2 puffs every 4 hours as needed for wheezing or shortness of breath. 8 g 11 apixaban (Eliquis) 5 MG tablet Take 1 tablet (5 mg) by mouth 2 times daily. 180 tablet 1 atovaquone (Mepron) 750 MG/5ML suspension Take 10 mL (1,500 mg) by mouth daily. 600 mL 0 carvedilol (Coreg) 12.5 MG tablet Take 1 tablet (12.5 mg) by mouth in the morning and 1 tablet (12.5 mg) in the evening. Take with meals. 180 tablet 1 cholecalciferol (Vitamin D-3) 50 MCG (2000 UT) tablet Take 4,000 Units by mouth daily. Contour Next Test test strip USE ONE strip TO test TWICE DAILY ezetimibe (Zetia) 10 MG tablet Take 1 tablet (10 mg) by mouth in the morning. 90 tablet 2 Finerenone (Kerendia) 10 MG tablet Take 1 tablet by mouth daily. fluticasone (Cutivate) 0.05 % cream Apply topically Daily as needed (itching). fluticasone (Flonase) 50 MCG/ACT nasal spray Administer 1 spray into each nostril daily. Shake gently. Before first use, prime pump. After use, clean tip and replace cap. furosemide (Lasix) 20 MG tablet Take 1 tablet (20 mg) by mouth Daily as needed (weight gain, swelling or shortness of breath). guaiFENesin (Mucinex) 600 MG 12 hr tablet Take 1,200 mg by mouth twice a day. Jentadueto XR 2.5-1000 MG per 24 hr tablet take 2 tablets by mouth once daily lansoprazole (Prevacid) [address] capsule 1 capsule in the morning. losartan (Cozaar) 100 MG tablet Take 1 tablet (100 mg) by mouth daily. 90 tablet 1 Multiple Vitamins-Minerals (MULTIPLE VITAMINS/WOMENS PO) Take by mouth daily. predniSONE (Deltasone) 20 MG tablet Take 3 tablets (60 mg) by mouth daily. Take 3 tablets (60 mg) daily x 14 days, then 2.5 tablets (50 mg) daily x 14 days, then 2 tablets (40 mg) daily until follow-up 180 tablet 0 rosuvastatin (Crestor) 10 MG tablet daily. sertraline (Zoloft) 25 MG tablet Take 1 tablet (25 mg) by mouth daily. 30 tablet 11 tiotropium (Spiriva Respimat) 2.5 MCG/ACT inhaler Inhale 2 puffs daily. 1 each 11 Vascepa 1 g capsule TAKE 2 CAPSULES BY MOUTH 2 TIMES DAILY 360 capsule 3 Allergies Allergies Allergen Reactions Isosulfan Blue Anaphylaxis Methylene Blue Sulfa Antibiotics Rash ROS - 10 systems General Denies any fever or chills HEENT Denies any diplopia, tinnitus or vertigo Resp See HPI Cardiac Denies any palpitations, claudication or edema GI Denies any melena, hematochezia, hematemesis Heme Denies bruising or bleeding easily Neuro Denies any focal motor or sensory deficits Psychiatric Denies anxiety, depression, suicidal ideation Skin Denies rashes, itching, open sores Vitals height is 1.702 m (5' 7) and weight is 63.5 kg (140 lb). Her temporal temperature is 36.2 C (97.2 F). Her blood pressure is 149/54 and her pulse is 80. Her respiration is 17 and oxygen saturation is96%. Body mass index is 21.93 kg/m . 24 Hour intake and output Intake/Output Summary (Last 24 hours) at 08/27/2024 1549 Last data filed at 08/27/2024 1321 Gross per 24 hour Intake 250 ml Output 2000 ml Net -1750 ml @[id number]@ Exam Vitals: BP 149/54 Pulse 80 Temp 36.2 C (97.2 F) (Temporal) Resp 17 Ht 1.702 m (5' 7) Wt 63.5 kg (140 lb) SpO2 96% BMI 21.93 kg/m Pulse Ox: SpO2 Av.7 % Min: 95 % Max: 98 % Supplemental O2: Physical Exam Vitals reviewed. Constitutional: Appearance: Normal appearance. HENT: Head: Normocephalic and atraumatic. Eyes: Extraocular Movements: Extraocular movements intact. Pupils: Pupils are equal, round, and reactive to light. Cardiovascular: Rate and Rhythm: Normal rate and regular rhythm. Pulses: Normal pulses. Heart sounds: Normal heart sounds. Pulmonary: Breath sounds: Rales present. Abdominal: General: Bowel sounds are normal. Palpations: Abdomen is soft. Musculoskeletal: Cervical back: Normal range of motion. Neurological: Mental Status: She is alert. Psychiatric: Mood and Affect: Mood normal. Behavior: Behavior normal. Thought Content: Thought content normal. Judgment: Judgment normal. Labs - [facility] CBC Lab Results Component Value Date WBC 7.6 08/27/2024 RBC 3.30 (L) 08/27/2024 HGB 9.5 (L) 08/27/2024 HCT 29.6 (L) 08/27/2024 PLT 225 08/27/2024 MCV 89.7 08/27/2024 MCH 28.8 08/27/2024 MCHC 32.1 08/27/2024 RDW 14.6 08/27/2024 NRBC 0.0 08/27/2024 LYMPHOPCT 12.9 (L) 08/27/2024 LYMPHOPCT 3 (L) 08/26/2024 MONOPCT 9.4 08/27/2024 MONOPCT 1 (L) 08/26/2024 EOSPCT 0.4 08/27/2024 BASOPCT 0.3 08/27/2024 MONOSABS 0.7 08/27/2024 LYMPHSABS 1.0 08/27/2024 EOSABS 0.0 08/27/2024 BASOSABS 0.0 08/27/2024 BMP Lab Results Component Value Date NA 136 08/27/2024 K 4.3 08/27/2024 CL 105 08/27/2024 CO2 20 (L) 08/27/2024 BUN 28 (H) 08/27/2024 CREATININE 1.01 08/27/2024 GLUCOSE 108 08/27/2024 CALCIUM 8.7 (L) 08/27/2024 LFTS Lab Results Component Value Date ALKPHOS 52 08/27/2024 ALT 28 08/27/2024 AST 28 08/27/2024 PROT 6.1 (L) 08/27/2024 BILITOT 0.5 08/27/2024 INR Lab Results Component Value Date INR 1.0 10/05/2023 PROTIME 10.7 10/05/2023 PFTs Done on 29 October 2023 interpreted by me, FEV1/FVC ratio is reduced FEV1 is 39% predicted with marked bronchodilator response. Total lung capacity is increased at 129% predicted suggesting hyperinflation diffusion capacity is reduced at 58% predicted Sleep History Cultures Radiology reviewed (See actual reports for details) Assessment/ Recommendations Shortness of breath/chest pain, multifactorial could be related to acute exacerbation of his heart failure with preserved ejection fraction, progression of her underlying organizing pneumonia, some worsening in the right pleural effusion, consider right-sided thoracentesis on Thursday, agree with Cardiolite stress test to rule out any cardiac contribution to her shortness of breath and chest pain COPD PFT shows FEV1 of 39% with marked bronchodilator response, add long-acting bronchodilator continue with long-acting muscarinic agent as needed albuterol History of organizing pneumonia currently on 60 mg of prednisone daily, continue with high-dose prednisone for now History of hypertension, elevated blood pressures, improved blood pressure control History of persistent A-fib status post ablation continue apixaban/Coreg Advance Directive: Full Code , consider right-sided thoracentesis on Thursday discharge planning: TBD Case discussed with nurse and patient Questions and concerns addressed.. [facility] Phone: [phone] Consult note* Jose Manuel Peña MD - 08/27/2024 3:49 PM EST Images from the original note were not included. 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) Diabetes (HCC) History of bilateral mastectomy History of chemotherapy S/P breast reconstruction, bilateral Dyslipidemia BRCA1 positive History of anesthesia problem Spondylosis without myelopathy or radiculopathy, lumbosacral region Low back pain History of COVID-19 Orthostatic hypotension 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 female female with past medical history significant for stage I triple negative breast cancer status post right mastectomy in June 1994, adjuvant chemotherapy/tamoxifen history of chronic kidney disease left mastectomy in May 2021 patient was seen in pulmonary clinic on 19 August [address] Marcus for PET avid multiple pulmonary nodules and progressive weight loss. Remote tobacco abuse quit about 30 years ago patient had undergone Bronchoscopy scope/EBUS on 05 October 2023 complicated by pneumothorax right middle lobe transbronchial lung biopsy lung parenchyma with organizing pneumonia right lower lobe transbronchial biopsy chronic inflammation and foci suggestive of organizing pneumonia Patient subsequently was started on prednisone patient was seen on August 19, 2024 for worsening dyspnea at this time patient was started on high-dose prednisone at 60 mg p.o. daily with a prolonged taper and atovaquone admitted to the hospital via emergency room on 26 August 2024 with complaints of chest pain and shortness of breath patient had a CT angiogram done, interpreted by me does not show evidence of pulmonary embolism multiple bilateral lung nodules most of which are stable moderate size right pleural effusion, increased in comparison to CAT scan in May Patient seen by cardiology today, recommended a possible stress test to rule out any cardiac etiology patient may have diastolic dysfunction related to severe hypertension CT angiography did not showevidence of vascular disease PMHx Past Medical History Past Medical History: Diagnosis Date Arrhythmia Arthritis Asthma Breast cancer (HCC) 1993 Right Breast(Mastectomy) Breast cancer (HCC) 2010 Left Breast(Simple Mastectomy, SLND) Chronic kidney disease COPD (chronic obstructive pulmonary disease) (HCC) Coronary artery disease Diabetes (HCC) Emphysema of lung (HCC) Within last year GERD (gastroesophageal reflux disease) High blood pressure Lung nodule -2022 Occlusion and stenosis of unspecified carotid artery Pure hypercholesterolemia Syncope and collapse 08/29/2022 Past Surgical History Past Surgical History: Procedure Laterality Date BRONCHOSCOPY CARDIAC ELECTROPHYSIOLOGY PROCEDURE N/A 05/05/2024 Performed by Walt Leigh MD at [facility] Cardiac Cath/EP Lab CAROTID ENDARTERECTOMY Right 2008 CATARACT EXTRACTION Bilateral 2006 CHEST TUBE INSERTION Right 10/05/2023 ENDOBRONCHIAL ULTRASOUND EBUS (HISTORICAL) 10/05/2023 LUNG BIOPSY MASTECTOMY Left 2010 simple/reconstruction/gingivagrapht MASTECTOMY Right 1993 reconstruction (TRAM) TOTAL ABDOMINAL HYSTERECTOMY W/ BILATERAL SALPINGOOPHORECTOMY 1998 TUBAL LIGATION 1979 Social History Social History Socioeconomic History Marital status: Spouse name: Not on file Number of children: Not on file Years of education: Not on file Highest education level: Not on file Occupational History Not on file Tobacco Use Smoking status: Former Current packs/day: 0.00 Average packs/day: 1 pack/day for 30.0 years (30.0 ttl pk-yrs) Types: Cigarettes Start date: 08/17/1963 Quit date: 08/17/1993 Years since quittin.0 Smokeless tobacco: Never 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: , lives [facility], retired [employer], 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 Vaping Use Vaping status: Never Used Substance and Sexual Activity Alcohol use: Yes Alcohol/week: 2.0 - 16.0 standard drinks of alcohol Types: 2 Glasses of wine per week Comment: occ Drug use: No Comment: caffeine use: 1 cup of coffee a day Sexual activity: Not Currently Partners: Male control/protection: Other Other Topics Concern Not on file Social History Narrative Not on file Social Drivers of Health Financial Resource Strain: Not on file Food Insecurity: No Food Insecurity (01/19/2024) Hunger Vital Sign Worried About Running Out of Food in the Last Year: Never true Ran Out of Food in the Last Year: Never true Transportation Needs: No Transportation Needs (01/19/2024) PRAPARE - Transportation Lack of Transportation (Medical): No Lack of Transportation (Non-Medical): No Physical Activity: Not on file Stress: Not on file Social Connections: Not on file Intimate Partner Violence: Not At Risk (08/27/2024) Humiliation, Afraid, Rape, and Kick questionnaire Fear of Current or Ex-Partner: No Emotionally Abused: No Physically Abused: No Sexually Abused: No Housing Stability: Low Risk (01/19/2024) Housing Stability Vital Sign Unable to Pay for Housing in the Last Year: No Number of Places Lived in the Last Year: 1 Unstable Housing in the Last Year: No Family History Family History Problem Relation Name Age of Onset Ovarian cancer Mother 66 Heart attack Father Lucita (Mother) 76 High Blood Pressure Father Lucita (Mother) Macular degeneration Father Lucita (Mother) Cancer Father Lucita (Mother) Ovarian cancer Mother's Sister 45 Other ([id number]) Son neuofibromatosis, BRCA1 positive Neurofibromatosis Son High Blood Pressure Son Cancer Son hairy cell leukemia Breast cancer Cousin 42 +brca Bladder Cancer Cousin 19 Hypertension Sister Angie Kidney disease Sister Angie Hypertension Sister Mireya Sister Kidney disease Sister Mireya Sister Current Medications apixaban, 5 mg, Oral, BID atovaquone, 1,500 mg, Oral, Daily carvedilol, 12.5 mg, Oral, BID WC cholecalciferol, 4,000 Units, Oral, Daily ezetimibe, 10 mg, Oral, Daily Finerenone, 1 tablet, Oral, Daily furosemide, 40 mg, IntraVENous, BID insulin lispro, 0-6 Units, SubCUTAneous, TID WC And insulin lispro, 0-6 Units, SubCUTAneous, Nightly ipratropium-albuterol, 3 mL, Nebulization, TID losartan, 100 mg, Oral, Daily pantoprazole, 40 mg, Oral, qAM AC predniSONE, 60 mg, Oral, Daily rosuvastatin, 10 mg, Oral, Daily sertraline, 25 mg, Oral, Daily tiotropium, 2 puff, Inhalation, Daily PRN medications: acetaminophen OR acetaminophen, albuterol, dextrose, dextrose, glucagon (rDNA), glucose, guaiFENesin, hydrALAZINE, polyethylene glycol (PEG) 3350 IV Drips/Infusions Home Medications Medications Prior to Admission Medication Sig Dispense Refill Last Dose/Taking albuterol (Ventolin HFA) 108 (90 Base) MCG/ACT inhaler Inhale 2 puffs every 4 hours as needed for wheezing or shortness of breath. 8 g 11 apixaban (Eliquis) 5 MG tablet Take 1 tablet (5 mg) by mouth 2 times daily. 180 tablet 1 atovaquone (Mepron) 750 MG/5ML suspension Take 10 mL (1,500 mg) by mouth daily. 600 mL 0 carvedilol (Coreg) 12.5 MG tablet Take 1 tablet (12.5 mg) by mouth in the morning and 1 tablet (12.5 mg) in the evening. Take with meals. 180 tablet 1 cholecalciferol (Vitamin D-3) 50 MCG (2000 UT) tablet Take 4,000 Units by mouth daily. Contour Next Test test strip USE ONE strip TO test TWICE DAILY ezetimibe (Zetia) 10 MG tablet Take 1 tablet (10 mg) by mouth in the morning. 90 tablet 2 Finerenone (Kerendia) 10 MG tablet Take 1 tablet by mouth daily. fluticasone (Cutivate) 0.05 % cream Apply topically Daily as needed (itching). fluticasone (Flonase) 50 MCG/ACT nasal spray Administer 1 spray into each nostril daily. Shake gently. Before first use, prime pump. After use, clean tip and replace cap. furosemide (Lasix) 20 MG tablet Take 1 tablet (20 mg) by mouth Daily as needed (weight gain, swelling or shortness of breath). guaiFENesin (Mucinex) 600 MG 12 hr tablet Take 1,200 mg by mouth twice a day. Jentadueto XR 2.5-1000 MG per 24 hr tablet take 2 tablets by mouth once daily lansoprazole (Prevacid) [address] capsule 1 capsule in the morning. losartan (Cozaar) 100 MG tablet Take 1 tablet (100 mg) by mouth daily. 90 tablet 1 Multiple Vitamins-Minerals (MULTIPLE VITAMINS/WOMENS PO) Take by mouth daily. predniSONE (Deltasone) 20 MG tablet Take 3 tablets (60 mg) by mouth daily. Take 3 tablets (60 mg) daily x 14 days, then 2.5 tablets (50 mg) daily x 14 days, then 2 tablets (40 mg) daily until follow-up 180 tablet 0 rosuvastatin (Crestor) 10 MG tablet daily. sertraline (Zoloft) 25 MG tablet Take 1 tablet (25 mg) by mouth daily. 30 tablet 11 tiotropium (Spiriva Respimat) 2.5 MCG/ACT inhaler Inhale 2 puffs daily. 1 each 11 Vascepa 1 g capsule TAKE 2 CAPSULES BY MOUTH 2 TIMES DAILY 360 capsule 3 Allergies Allergies Allergen Reactions Isosulfan Blue Anaphylaxis Methylene Blue Sulfa Antibiotics Rash ROS - 10 systems General Denies any fever or chills HEENT Denies any diplopia, tinnitus or vertigo Resp See HPI Cardiac Denies any palpitations, claudication or edema GI Denies any melena, hematochezia, hematemesis Heme Denies bruising or bleeding easily Neuro Denies any focal motor or sensory deficits Psychiatric Denies anxiety, depression, suicidal ideation Skin Denies rashes, itching, open sores Vitals height is 1.702 m (5' 7) and weight is 63.5 kg (140 lb). Her temporal temperature is 36.2 C (97.2 F). Her blood pressure is 149/54 and her pulse is 80. Her respiration is 17 and oxygen saturation is96%. Body mass index is 21.93 kg/m . 24 Hour intake and output Intake/Output Summary (Last 24 hours) at 08/27/2024 1549 Last data filed at 08/27/2024 1321 Gross per 24 hour Intake 250 ml Output 2000 ml Net -1750 ml @[id number]@ Exam Vitals: BP 149/54 Pulse 80 Temp 36.2 C (97.2 F) (Temporal) Resp 17 Ht 1.702 m (5' 7) Wt 63.5 kg (140 lb) SpO2 96% BMI 21.93 kg/m Pulse Ox: SpO2 Av.7 % Min: 95 % Max: 98 % Supplemental O2: Physical Exam Vitals reviewed. Constitutional: Appearance: Normal appearance. HENT: Head: Normocephalic and atraumatic. Eyes: Extraocular Movements: Extraocular movements intact. Pupils: Pupils are equal, round, and reactive to light. Cardiovascular: Rate and Rhythm: Normal rate and regular rhythm. Pulses: Normal pulses. Heart sounds: Normal heart sounds. Pulmonary: Breath sounds: Rales present. Abdominal: General: Bowel sounds are normal. Palpations: Abdomen is soft. Musculoskeletal: Cervical back: Normal range of motion. Neurological: Mental Status: She is alert. Psychiatric: Mood and Affect: Mood normal. Behavior: Behavior normal. Thought Content: Thought content normal. Judgment: Judgment normal. Labs - Old records and notes have been reviewed in [facility] CBC Lab Results Component Value Date WBC 7.6 08/27/2024 RBC 3.30 (L) 08/27/2024 HGB 9.5 (L) 08/27/2024 HCT 29.6 (L) 08/27/2024 PLT 225 08/27/2024 MCV 89.7 08/27/2024 MCH 28.8 08/27/2024 MCHC 32.1 08/27/2024 RDW 14.6 08/27/2024 NRBC 0.0 08/27/2024 LYMPHOPCT 12.9 (L) 08/27/2024 LYMPHOPCT 3 (L) 08/26/2024 MONOPCT 9.4 08/27/2024 MONOPCT 1 (L) 08/26/2024 EOSPCT 0.4 08/27/2024 BASOPCT 0.3 08/27/2024 MONOSABS 0.7 08/27/2024 LYMPHSABS 1.0 08/27/2024 EOSABS 0.0 08/27/2024 BASOSABS 0.0 08/27/2024 BMP Lab Results Component Value Date NA 136 08/27/2024 K 4.3 08/27/2024 CL 105 08/27/2024 CO2 20 (L) 08/27/2024 BUN 28 (H) 08/27/2024 CREATININE 1.01 08/27/2024 GLUCOSE 108 08/27/2024 CALCIUM 8.7 (L) 08/27/2024 LFTS Lab Results Component Value Date ALKPHOS 52 08/27/2024 ALT 28 08/27/2024 AST 28 08/27/2024 PROT 6.1 (L) 08/27/2024 BILITOT 0.5 08/27/2024 INR Lab Results Component Value Date INR 1.0 10/05/2023 PROTIME 10.7 10/05/2023 PFTs Done on 29 October 2023 interpreted by me, FEV1/FVC ratio is reduced FEV1 is 39% predicted with marked bronchodilator response. Total lung capacity is increased at 129% predicted suggesting hyperinflation diffusion capacity is reduced at 58% predicted Sleep History Cultures Radiology reviewed (See actual reports for details) Assessment/ Recommendations Shortness of breath/chest pain, multifactorial could be related to acute exacerbation of his heart failure with preserved ejection fraction, progression of her underlying organizing pneumonia, some worsening in the right pleural effusion, consider right-sided thoracentesis on Thursday, agree with Cardiolite stress test to rule out any cardiac contribution to her shortness of breath and chest pain COPD PFT shows FEV1 of 39% with marked bronchodilator response, add long-acting bronchodilator continue with long-acting muscarinic agent as needed albuterol History of organizing pneumonia currently on 60 mg of prednisone daily, continue with high-dose prednisone for now History of hypertension, elevated blood pressures, improved blood pressure control History of persistent A-fib status post ablation continue apixaban/Coreg Advance Directive: Full Code , consider right-sided thoracentesis on Thursday discharge planning: TBD Case discussed with nurse and patient Questions and concerns addressed.. * Rashi Radford MD - 08/27/2024 8:56 AM ESTAssociated Order(s): IP CONSULT TO CARDIOLOGY [facility] [place] [facility] [place]Electrophysiology Consult Note Reason for Consult/Chief Complaint: Dyspnea, chf Consulting provider: Prabhakar [employer]: Denny History of Present Illness: Rolando Peters is a 79 y.o. female with a history of breast cancer, CKD stage II, tobacco abuse, HTN,COPD, hypertension, atrial fib S/P pulse field ablation 05/05/24, INGA, HFpEF in setting of atrial fib in January 2024 who is coming in now due to dyspnea. Patient says she woke up on the morning of August 26 with sudden onset of shortness of breath with chest pressure symptoms that radiated into her back. The symptoms persisted for about 3 hours so she came into the [facility] emergency room. She hadconversational dyspnea at the time she came into the ER and she was markedly hypertensive with a systolic pressure of 190 mmHg. Her high-sensitivity troponins were negative, and a CT angiogram was done of her chest and abdomen to rule out dissection and this was negative for dissection but did showdiffuse atherosclerotic disease throughout her aorta and even a possible occlusion of the right iliac artery. Her NT proBNP was elevated at 6947 but this is stable compared to 1 that was done 7 months ago. She was treated with IV Lasix and does feel a little bit better today. Hb noted the patient is being followed by pulmonary for organizing pneumonia and was just started on high-dose prednisone and antibiotics 2 days prior to admission. She had echocardiogram last month that showed normal leftsided structures but evidence of severe pulmonary hypertension. She had an ablation for atrial fibri llation in April and seems to have stayed in sinus rhythm since that time. Assessment/Plan HF NYHA Class [] I [] II [x] III [] IV []Unable to assess Chest pain and dyspnea: Etiology is not clear, but most likely is related to pulmonary process and possibly diastolic dysfunction related to severe hypertension. Is possible her blood pressure and fluid retention could be aggravated by her recent initiation of prednisone for her organizing pneumonia. She is feeling better now but her blood pressure is elevated despite being on high dose losartan and carvedilol. She has not had an ischemia workup in many years she says, and she does have evidence of vascular disease based on her CT angiography. Lexiscan Cardiolite stress test, can do as an outpatient if she is ready for discharge since it is a weekend Get blood pressure under control as below Pulmonary consult to assess role of organizing pneumonia and her symptoms Hypertension: She says she has a history of volatile hypertension, and I suspect her current numbers are elevated due to her prednisone. Continue losartan 100 mg a day Continue carvedilol 12.5 mg twice a day Will start amlodipine 2.5 mg daily Take Lasix as needed for edema Try to taper off prednisone as soon as possible History of persistent atrial fibrillation: She is now 4 months status post ablation and seems to bemaintaining sinus rhythm well. She has no symptoms of atrial fibrillation and has not had this rhythm since admission. Continue apixaban 5 mg p.o. twice daily Continue carvedilol in the event that she has recurrence for rate control Medications: apixaban, 5 mg, Oral, BID atovaquone, 1,500 mg, Oral, Daily carvedilol, 12.5 mg, Oral, BID WC cholecalciferol, 4,000 Units, Oral, Daily ezetimibe, 10 mg, Oral, Daily Finerenone, 1 tablet, Oral, Daily furosemide, 40 mg, IntraVENous, BID insulin lispro, 0-6 Units, SubCUTAneous, TID WC And insulin lispro, 0-6 Units, SubCUTAneous, Nightly ipratropium-albuterol, 3 mL, Nebulization, TID losartan, 100 mg, Oral, Daily pantoprazole, 40 mg, Oral, qAM AC predniSONE, 60 mg, Oral, Daily rosuvastatin, 10 mg, Oral, Daily sertraline, 25 mg, Oral, Daily tiotropium, 2 puff, Inhalation, Daily Physical Examination: Vitals: 08/26/24 1930 08/26/24 2144 08/26/24 2218 08/27/24 0652 BP: (!) 182/60 (!) 165/59 (!) 166/57 (!) 188/55 BP Location: Left arm Patient Position: Lying Pulse: 70 75 71 65 Resp: 14 16 16 18 Temp: 36.9 C (98.5 F) TempSrc: Oral SpO2: 95% 95% 97% 98% Weight: Height: No intake or output data in the 24 hours ending 08/27/24 0856 Wt Readings from Last 3 Encounters: 08/26/24 140 lb (63.5 kg) 08/19/24 140 lb (63.5 kg) 08/01/24 137 lb (62.1 kg) Physical Exam Constitutional: No distress. well nourished. well hydrated Psychiatric: A &O x 3. Medical insight good NMT: Oral mucosa is pink and moist Neck: 4 cm JVD. Respiratory: Lungs are diminished in right base, no wheezes Cardiac exam: Rhythm: RRR ; Normal S1 and S2 Murmur: no Other: No rub; S4 gallop Vasc: Peripheral pulses 2+ Abdomen: BS+, soft, NT Extremities: no LE edema Skin: Warm to touch and well perfused Laboratory Tests: TROPONIN I, CONVENTIONAL SENSITIVITY CK Date Value Ref Range Status 06/14/2020 49 30 - 170 U/L Final 08/22/2019 67 30 - 170 U/L Final TROPONIN I Date Value Ref Range Status 01/19/2024 0.026 <0.034 ng/mL Final 01/19/2024 0.021 <0.034 ng/mL Final TROPONIN I, HIGH SENSITIVITY Troponin HS, Serial Baseline Date Value Ref Range Status 08/26/2024 22 (H) <=14 ng/L Final Troponin HS, Serial Second Date Value Ref Range Status 08/26/2024 19 (H) <=14 ng/L Final Troponin HS Delta, Baseline to Second Date Value Ref Range Status 08/26/2024 -3 <=2 ng/L Final Comment: A troponin delta greater than or equal to 15 ng/L is significant for acute cardiac injury. Values less than 15 but greater than 2 are an intermediate change requiring a 3rd serial troponin to be drawn. Values less than or equal to 2 indicate acute cardiac injury is not likely, see external algorithmsfor further clinical guidance. Recent Labs 08/26/24 1606 08/27/24 0657 NA 135* 136 K 4.7 4.3 CL 106 105 CO2 20* 20* BUN 27* 28* CREATININE 1.02 1.01 EGFR 56.4* 57.1* Recent Labs 08/26/24 1606 08/27/24 0657 WBC 7.9 7.6 HGB 9.9* 9.5* HCT 31.2* 29.6* MCV 91.2 89.7 PLT 235 225 No results found for: HGBA1C Lab Results Component Value Date TSH 1.13 12/03/2022 Lab Results Component Value Date CHOL 149 06/14/2020 CHOL 170 08/22/2019 Lab Results Component Value Date HDL 45 06/14/2020 HDL 54 08/22/2019 Lab Results Component Value Date TRIG 265 (A) 06/14/2020 TRIG 280 (A) 08/22/2019 Recent Labs 08/26/24 1606 BNP 6,947* Results from last 7 days Lab Units 08/27/24 0657 08/26/24 1606 AST U/L 28 36* ALT U/L 28 35* Radiology: CXR: personally reviewed: Increased interstitial markings, shiraz right base CTA chest/abdomen/pelvis: 08/27/24 IMPRESSION: 1. No evidence of acute aortic dissection, penetrating atherosclerotic ulcer or intramural hematoma. 2. Advanced atherosclerotic disease. Redemonstration of marked stenosis versus occlusion of the proximal right internal iliac artery. Numerous other areas of stenosis are present, as detailed above. 3. Multiple lung nodules bilaterally, posterior which are unchanged but with a worsening cluster ofnodular densities in the right lower lobe. These are indeterminate but could be due to progressive infectious/inflammatory process. However, recommend either short-term follow-up imaging in three months or tissue sampling or PET/CT as a neoplasm is not excluded. 4. Bilateral pleural effusions, greater on the right, unchanged. Interlobular septal thickening andgroundglass opacities related to pulmonary edema. Cardiac Tests Personally Reviewed: ECG 12-LEAD 08/26/2024 4:03 PM (Final) Impression Sinus rhythm Normal EKG Telemetry findings: NSR with PACs Reports reviewed: TRANSTHORACIC ECHOCARDIOGRAM (TTE) COMPLETE (CONTRAST/BUBBLE/3D PRN) 07/25/2024 4:27 PM (Final) Interpretation Summary Left Ventricle: Left ventricle size is normal. Normal wall thickness. Normal left ventricular systolic function. EF by 2D Simpsons Biplane is 55%. Normal wall motion. Grade II diastolic dysfunction with increased LAP. Right Ventricle: Right ventricle size is normal. Normal systolic function. Aortic Valve: Mild (1+) regurgitation. Mild stenosis of the aortic valve. AV mean gradient is 7 mmHg. Mitral Valve: Moderately thickened leaflets. Mildly calcified leaflets. Mild annular calcification.Moderate (2+) regurgitation with a posterior directed jet. Mild stenosis noted. Tricuspid Valve: Mild to moderate (1-2+) regurgitation. RVSP is 72 mmHg. Signed by: Fabiola Potter on 07/25/2024 4:27 PM Last Cath No results found for this or any previous visit. Last Stress Test No results found for this or any previous visit. Last EP study ELECTROPHYSIOLOGY PROCEDURE 05/05/2024 3:02 PM (Final) Conclusion Successful ablation for atrial fibrillation with pulse field ablation of all four pulmonary veins and posterior wall isolation. Atypical flutter ablation with PFA with anterior mitral line. The patient tolerated the procedure well with no immediate complications. Plan: 1. Transfer to PACU for observation 2. Bedrest for 2.5 hours post-sheath pull, then ambulate as tolerated 3. Resume anticoagulation. 4. Cont current home meds as prescribed 5. Discharge home this afternoon pending above Signed by: Walt Leigh on 05/05/2024 3:02 PM EF BP Date Value Ref Range Status 07/25/2024 55 55 - 100 % Final EF Physician Date Value Ref Range Status 01/22/2024 48 % Final Rashi Radford MD DATE of SERVICE: 08/27/2024 documented in this [facility]01-11-2025 Consult note* Rashi Radford MD - 08/27/2024 8:56 AM ESTAssociated Order(s): IP CONSULT TO CARDIOLOGY [facility] [place] [facility] [place]Electrophysiology Consult Note Reason for Consult/Chief Complaint: Dyspnea, chf Consulting provider: Prabhakar Maria [employer]er [employer]: Denny History of Present Illness: Rolando Peters is a 79 y.o. female with a history of breast cancer, CKD stage II, tobacco abuse, HTN,COPD, hypertension, atrial fib S/P pulse field ablation 05/05/24, INGA, HFpEF in setting of atrial fib in January 2024 who is coming in now due to dyspnea. Patient says she woke up on the morning of August 26 with sudden onset of shortness of breath with chest pressure symptoms that radiated into her back. The symptoms persisted for about 3 hours so she came into the [facility] emergency room. She hadconversational dyspnea at the time she came into the ER and she was markedly hypertensive with a systolic pressure of 190 mmHg. Her high-sensitivity troponins were negative, and a CT angiogram was done of her chest and abdomen to rule out dissection and this was negative for dissection but did showdiffuse atherosclerotic disease throughout her aorta and even a possible occlusion of the right iliac artery. Her NT proBNP was elevated at 6947 but this is stable compared to 1 that was done 7 months ago. She was treated with IV Lasix and does feel a little bit better today. Hb noted the patient is being followed by pulmonary for organizing pneumonia and was just started on high-dose prednisone and antibiotics 2 days prior to admission. She had echocardiogram last month that showed normal leftsided structures but evidence of severe pulmonary hypertension. She had an ablation for atrial fibri llation in April and seems to have stayed in sinus rhythm since that time. Assessment/Plan HF NYHA Class [] I [] II [x] III [] IV []Unable to assess Chest pain and dyspnea: Etiology is not clear, but most likely is related to pulmonary process and possibly diastolic dysfunction related to severe hypertension. Is possible her blood pressure and fluid retention could be aggravated by her recent initiation of prednisone for her organizing pneumonia. She is feeling better now but her blood pressure is elevated despite being on high dose losartan and carvedilol. She has not had an ischemia workup in many years she says, and she does have evidence of vascular disease based on her CT angiography. Lexiscan Cardiolite stress test, can do as an outpatient if she is ready for discharge since it is a weekend Get blood pressure under control as below Pulmonary consult to assess role of organizing pneumonia and her symptoms Hypertension: She says she has a history of volatile hypertension, and I suspect her current numbers are elevated due to her prednisone. Continue losartan 100 mg a day Continue carvedilol 12.5 mg twice a day Will start amlodipine 2.5 mg daily Take Lasix as needed for edema Try to taper off prednisone as soon as possible History of persistent atrial fibrillation: She is now 4 months status post ablation and seems to bemaintaining sinus rhythm well. She has no symptoms of atrial fibrillation and has not had this rhythm since admission. Continue apixaban 5 mg p.o. twice daily Continue carvedilol in the event that she has recurrence for rate control Medications: apixaban, 5 mg, Oral, BID atovaquone, 1,500 mg, Oral, Daily carvedilol, 12.5 mg, Oral, BID WC cholecalciferol, 4,000 Units, Oral, Daily ezetimibe, 10 mg, Oral, Daily Finerenone, 1 tablet, Oral, Daily furosemide, 40 mg, IntraVENous, BID insulin lispro, 0-6 Units, SubCUTAneous, TID WC And insulin lispro, 0-6 Units, SubCUTAneous, Nightly ipratropium-albuterol, 3 mL, Nebulization, TID losartan, 100 mg, Oral, Daily pantoprazole, 40 mg, Oral, qAM AC predniSONE, 60 mg, Oral, Daily rosuvastatin, 10 mg, Oral, Daily sertraline, 25 mg, Oral, Daily tiotropium, 2 puff, Inhalation, Daily Physical Examination: Vitals: 08/26/24 1930 08/26/24 2144 08/26/24 2218 08/27/24 0652 BP: (!) 182/60 (!) 165/59 (!) 166/57 (!) 188/55 BP Location: Left arm Patient Position: Lying Pulse: 70 75 71 65 Resp: 14 16 16 18 Temp: 36.9 C (98.5 F) TempSrc: Oral SpO2: 95% 95% 97% 98% Weight: Height: No intake or output data in the 24 hours ending 08/27/24 0856 Wt Readings from Last 3 Encounters: 08/26/24 140 lb (63.5 kg) 08/19/24 140 lb (63.5 kg) 08/01/24 137 lb (62.1 kg) Physical Exam Constitutional: No distress. well nourished. well hydrated Psychiatric: A &O x 3. Medical insight good NMT: Oral mucosa is pink and moist Neck: 4 cm JVD. Respiratory: Lungs are diminished in right base, no wheezes Cardiac exam: Rhythm: RRR ; Normal S1 and S2 Murmur: no Other: No rub; S4 gallop Vasc: Peripheral pulses 2+ Abdomen: BS+, soft, NT Extremities: no LE edema Skin: Warm to touch and well perfused Laboratory Tests: TROPONIN I, CONVENTIONAL SENSITIVITY CK Date Value Ref Range Status 06/14/2020 49 30 - 170 U/L Final 08/22/2019 67 30 - 170 U/L Final TROPONIN I Date Value Ref Range Status 01/19/2024 0.026 <0.034 ng/mL Final 01/19/2024 0.021 <0.034 ng/mL Final TROPONIN I, HIGH SENSITIVITY Troponin HS, Serial Baseline Date Value Ref Range Status 08/26/2024 22 (H) <=14 ng/L Final Troponin HS, Serial Second Date Value Ref Range Status 08/26/2024 19 (H) <=14 ng/L Final Troponin HS Delta, Baseline to Second Date Value Ref Range Status 08/26/2024 -3 <=2 ng/L Final Comment: A troponin delta greater than or equal to 15 ng/L is significant for acute cardiac injury. Values less than 15 but greater than 2 are an intermediate change requiring a 3rd serial troponin to be drawn. Values less than or equal to 2 indicate acute cardiac injury is not likely, see external algorithmsfor further clinical guidance. Recent Labs 08/26/24 1606 08/27/24 0657 NA 135* 136 K 4.7 4.3 CL 106 105 CO2 20* 20* BUN 27* 28* CREATININE 1.02 1.01 EGFR 56.4* 57.1* Recent Labs 08/26/24 1606 08/27/24 0657 WBC 7.9 7.6 HGB 9.9* 9.5* HCT 31.2* 29.6* MCV 91.2 89.7 PLT 235 225 No results found for: HGBA1C Lab Results Component Value Date TSH 1.13 12/03/2022 Lab Results Component Value Date CHOL 149 06/14/2020 CHOL 170 08/22/2019 Lab Results Component Value Date HDL 45 06/14/2020 HDL 54 08/22/2019 Lab Results Component Value Date TRIG 265 (A) 06/14/2020 TRIG 280 (A) 08/22/2019 Recent Labs 08/26/24 1606 BNP 6,947* Results from last 7 days Lab Units 08/27/24 0657 08/26/24 1606 AST U/L 28 36* ALT U/L 28 35* Radiology: CXR: personally reviewed: Increased interstitial markings, shiraz right base CTA chest/abdomen/pelvis: 08/27/24 IMPRESSION: 1. No evidence of acute aortic dissection, penetrating atherosclerotic ulcer or intramural hematoma. 2. Advanced atherosclerotic disease. Redemonstration of marked stenosis versus occlusion of the proximal right internal iliac artery. Numerous other areas of stenosis are present, as detailed above. 3. Multiple lung nodules bilaterally, posterior which are unchanged but with a worsening cluster ofnodular densities in the right lower lobe. These are indeterminate but could be due to progressive infectious/inflammatory process. However, recommend either short-term follow-up imaging in three months or tissue sampling or PET/CT as a neoplasm is not excluded. 4. Bilateral pleural effusions, greater on the right, unchanged. Interlobular septal thickening andgroundglass opacities related to pulmonary edema. Cardiac Tests Personally Reviewed: ECG 12-LEAD 08/26/2024 4:03 PM (Final) Impression Sinus rhythm Normal EKG Telemetry findings: NSR with PACs Reports reviewed: TRANSTHORACIC ECHOCARDIOGRAM (TTE) COMPLETE (CONTRAST/BUBBLE/3D PRN) 07/25/2024 4:27 PM (Final) Interpretation Summary Left Ventricle: Left ventricle size is normal. Normal wall thickness. Normal left ventricular systolic function. EF by 2D Simpsons Biplane is 55%. Normal wall motion. Grade II diastolic dysfunction with increased LAP. Right Ventricle: Right ventricle size is normal. Normal systolic function. Aortic Valve: Mild (1+) regurgitation. Mild stenosis of the aortic valve. AV mean gradient is 7 mmHg. Mitral Valve: Moderately thickened leaflets. Mildly calcified leaflets. Mild annular calcification.Moderate (2+) regurgitation with a posterior directed jet. Mild stenosis noted. Tricuspid Valve: Mild to moderate (1-2+) regurgitation. RVSP is 72 mmHg. Signed by: Fabiola Potter on 07/25/2024 4:27 PM Last Cath No results found for this or any previous visit. Last Stress Test No results found for this or any previous visit. Last EP study ELECTROPHYSIOLOGY PROCEDURE 05/05/2024 3:02 PM (Final) Conclusion Successful ablation for atrial fibrillation with pulse field ablation of all four pulmonary veins and posterior wall isolation. Atypical flutter ablation with PFA with anterior mitral line. The patient tolerated the procedure well with no immediate complications. Plan: 1. Transfer to PACU for observation 2. Bedrest for 2.5 hours post-sheath pull, then ambulate as tolerated 3. Resume anticoagulation. 4. Cont current home meds as prescribed 5. Discharge home this afternoon pending above Signed by: Walt Leigh on 05/05/2024 3:02 PM EF BP Date Value Ref Range Status 07/25/2024 55 55 - 100 % Final EF Physician Date Value Ref Range Status 01/22/2024 48 % Final Rashi Radford MD DATE of SERVICE: 08/27/2024 [employer] Phone: [phone] [phone] History and physical note* Reginald Garza DO - 08/26/2024 7:50 PM EST Attending History and Physical Admit Date: 08/26/2024 PCP: CELIA AL DO CHIEF COMPLAINT: SOB/CRUZ Reason for Admission: Dyspnea on exertion History Obtained From: patient HISTORY OF PRESENT ILLNESS: Rolando is a 79 y.o. female with past medical history organizing PNA, DM2, INGA, COPD, CKD3, history of pulm nodules, pAF, HFpEF, h/o breast CA who presents with chief complaint of dyspnea on exertion, CP, back pain. She is conversationally dyspneic in the ER. In the ER, vitals significant for BP 190s/70s, labs significant for BNP 6947, GFR 56.4, trop 22-->19, Hgb 9.9. CTA was obtained to rule out PE or dissection, this showed multiple pulm nodules, b/l pleural effusions and multiple areas of atherosclerosis but otherwise unremarkable. CXR showed interstitial edema. Of note, she was recently seen by pulm 1/ for follow-up regarding multiple lung nodules who placed her on prolonged steroid co urse due to similar symptoms of CRUZ in the setting of organizing PNA. She is on atovaquone for PCP prophylaxis. There was some discussion of possible thoracentesis for R pleural effusion, she was hoping to defer for repeat imaging before making that decision. Will admit for further evaluation and management. Past Medical History: Past Medical History: Diagnosis Date Arrhythmia Arthritis Asthma Breast cancer (HCC) 1993 Right Breast(Mastectomy) Breast cancer (HCC) 2010 Left Breast(Simple Mastectomy, SLND) Chronic kidney disease COPD (chronic obstructive pulmonary disease) (HCC) Coronary artery disease Diabetes (HCC) Emphysema of lung (HCC) Within last year GERD (gastroesophageal reflux disease) High blood pressure Lung nodule -2022 Occlusion and stenosis of unspecified carotid artery Pure hypercholesterolemia Syncope and collapse 08/29/2022 Past Surgical History: Past Surgical History: Procedure Laterality Date BRONCHOSCOPY CARDIAC ELECTROPHYSIOLOGY PROCEDURE N/A 05/05/2024 Performed by Walt Leigh MD at [facility] Cardiac Cath/EP Lab CAROTID ENDARTERECTOMY Right 2008 CATARACT EXTRACTION Bilateral 2006 CHEST TUBE INSERTION Right 10/05/2023 ENDOBRONCHIAL ULTRASOUND EBUS (HISTORICAL) 10/05/2023 LUNG BIOPSY MASTECTOMY Left 2010 simple/reconstruction/gingivagrapht MASTECTOMY Right 1993 reconstruction (TRAM) TOTAL ABDOMINAL HYSTERECTOMY W/ BILATERAL SALPINGOOPHORECTOMY 1998 TUBAL LIGATION 1978 Social History: Social History Socioeconomic History Marital status: Spouse name: Not on file Number of children: Not on file Years of education: Not on file Highest education level: Not on file Occupational History Not on file Tobacco Use Smoking status: Former Current packs/day: 0.00 Average packs/day: 1 pack/day for 30.0 years (30.0 ttl pk-yrs) Types: Cigarettes Start date: 08/17/1963 Quit date: 08/17/1993 Years since quittin.0 Smokeless tobacco: Never 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: , 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[facility], 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, 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 Vaping Use Vaping status: Never Used Substance and Sexual Activity Alcohol use: Yes Alcohol/week: 2.0 - 16.0 standard drinks of alcohol Types: 2 Glasses of wine per week Comment: occ Drug use: No Comment: caffeine use: 1 cup of coffee a day Sexual activity: Not Currently Partners: Male control/protection: Other Other Topics Concern Not on file Social History Narrative Not on file Social Drivers of Health Financial Resource Strain: Not on file Food Insecurity: No Food Insecurity (01/19/2024) Hunger Vital Sign Worried About Running Out of Food in the Last Year: Never true Ran Out of Food in the Last Year: Never true Transportation Needs: No Transportation Needs (01/19/2024) PRAPARE - Transportation Lack of Transportation (Medical): No Lack of Transportation (Non-Medical): No Physical Activity: Not on file Stress: Not on file Social Connections: Not on file Intimate Partner Violence: Not At Risk (01/19/2024) Humiliation, Afraid, Rape, and Kick questionnaire Fear of Current or Ex-Partner: No Emotionally Abused: No Physically Abused: No Sexually Abused: No Housing Stability: Low Risk (01/19/2024) Housing Stability Vital Sign Unable to Pay for Housing in the Last Year: No Number of Places Lived in the Last Year: 1 Unstable Housing in the Last Year: No Family History: Family History Problem Relation Name Age of Onset Ovarian cancer Mother 66 Heart attack Father Lucita (Mother) 76 High Blood Pressure Father Lucita (Mother) Macular degeneration Father Lucita (Mother) Cancer Father Lucita (Mother) Ovarian cancer Mother's Sister 45 Other ([id number]) Son neuofibromatosis, BRCA1 positive Neurofibromatosis Son High Blood Pressure Son Cancer Son hairy cell leukemia Breast cancer Cousin 42 +brca Bladder Cancer Cousin 19 Hypertension Sister Angie Kidney disease Sister Angie Hypertension Sister Mireya Sister Kidney disease Sister Mireya Sister Medications Prior to Admission: No current facility-administered medications on file prior to encounter. Current Outpatient Medications on File Prior to Encounter Medication Sig Dispense Refill albuterol (Ventolin HFA) 108 (90 Base) MCG/ACT inhaler Inhale 2 puffs every 4 hours as needed for wheezing or shortness of breath. 8 g 11 apixaban (Eliquis) 5 MG tablet Take 1 tablet (5 mg) by mouth 2 times daily. 180 tablet 1 atovaquone (Mepron) 750 MG/5ML suspension Take 10 mL (1,500 mg) by mouth daily. 600 mL 0 carvedilol (Coreg) 12.5 MG tablet Take 1 tablet (12.5 mg) by mouth in the morning and 1 tablet (12.5 mg) in the evening. Take with meals. 180 tablet 1 cholecalciferol (Vitamin D-3) 50 MCG (2000 UT) tablet Take 4,000 Units by mouth daily. Contour Next Test test strip USE ONE strip TO test TWICE DAILY ezetimibe (Zetia) 10 MG tablet Take 1 tablet (10 mg) by mouth in the morning. 90 tablet 2 Finerenone (Kerendia) 10 MG tablet Take 1 tablet by mouth daily. fluticasone (Cutivate) 0.05 % cream Apply topically Daily as needed (itching). fluticasone (Flonase) 50 MCG/ACT nasal spray Administer 1 spray into each nostril daily. Shake gently. Before first use, prime pump. After use, clean tip and replace cap. furosemide (Lasix) 20 MG tablet Take 1 tablet (20 mg) by mouth Daily as needed (weight gain, swelling or shortness of breath). guaiFENesin (Mucinex) 600 MG 12 hr tablet Take 1,200 mg by mouth twice a day. Jentadueto XR 2.5-1000 MG per 24 hr tablet take 2 tablets by mouth once daily lansoprazole (Prevacid) [address] capsule 1 capsule in the morning. losartan (Cozaar) 100 MG tablet Take 1 tablet (100 mg) by mouth daily. 90 tablet 1 Multiple Vitamins-Minerals (MULTIPLE VITAMINS/WOMENS PO) Take by mouth daily. predniSONE (Deltasone) 20 MG tablet Take 3 tablets (60 mg) by mouth daily. Take 3 tablets (60 mg) daily x 14 days, then 2.5 tablets (50 mg) daily x 14 days, then 2 tablets (40 mg) daily until follow-up 180 tablet 0 rosuvastatin (Crestor) 10 MG tablet daily. sertraline (Zoloft) 25 MG tablet Take 1 tablet (25 mg) by mouth daily. 30 tablet 11 tiotropium (Spiriva Respimat) 2.5 MCG/ACT inhaler Inhale 2 puffs daily. 1 each 11 Vascepa 1 g capsule TAKE 2 CAPSULES BY MOUTH 2 TIMES DAILY 360 capsule 3 Allergies: Allergies Allergen Reactions Isosulfan Blue Anaphylaxis Methylene Blue Sulfa Antibiotics Rash REVIEW OF SYSTEMS: Constitutional: Negative for fever, chills, activity change and unexpected weight change. HEENT: Negative for congestion, postnasal drip and sneezing. Eyes: Negative for itching and visual disturbance. Respiratory: positive for SOB, wheezing, CRUZ. Cardiovascular: positive for chest pain. Gastrointestinal: Negative for nausea, vomiting, abdominal pain, diarrhea and blood in stool. Genitourinary: Negative for dysuria, frequency and flank pain. Musculoskeletal: Negative for myalgias and joint swelling. Skin: Negative for rash. Neurological: Negative for dizziness, tremors, seizures, syncope, facial asymmetry, speech difficulty, weakness, numbness and headaches. Hematological: Negative for adenopathy. Psychiatric/Behavioral: Negative for suicidal ideas, behavioral problems, self- injury and dysphoricmood. Vitals: BP (!) 182/60 Pulse 70 Temp 36.7 C (98.1 F) (Oral) Resp 14 Ht 1.702 m (5' 7) Wt 63.5 kg (140 lb) SpO2 95% BMI 21.93 kg/m BMI Classification: Normal Weight (BMI 18.5-24.9) Pulse Ox: SpO2 Av.7 % Min: 95 % Max: 98 % Supplemental O2: PHYSICAL EXAM: Physical Exam Constitutional: Appearance: Normal appearance. She is not ill-appearing. HENT: Head: Normocephalic and atraumatic. Nose: No congestion or rhinorrhea. Mouth/Throat: Mouth: Mucous membranes are moist. Pharynx: Oropharynx is clear. Eyes: Extraocular Movements: Extraocular movements intact. Pupils: Pupils are equal, round, and reactive to light. Cardiovascular: Rate and Rhythm: Normal rate and regular rhythm. Pulses: Normal pulses. Heart sounds: No murmur heard. No gallop. Pulmonary: Breath sounds: Wheezing present. Comments: Conversational dyspnea Abdominal: General: Abdomen is flat. Bowel sounds are normal. Palpations: Abdomen is soft. Musculoskeletal: General: Swelling (scant bilateral LE edema) present. Cervical back: Normal range of motion and neck supple. Skin: General: Skin is warm and dry. Findings: No erythema. Neurological: General: No focal deficit present. Mental Status: She is alert and oriented to person, place, and time. DATA: CBC: Recent Labs 08/26/24 1606 WBC 7.9 RBC 3.42* HGB 9.9* HCT 31.2* MCV 91.2 RDW 14.6 PLT 235 BMP: Recent Labs 08/26/24 1606 NA 135* K 4.7 CL 106 CO2 20* BUN 27* CREATININE 1.02 GLUCOSE 171* CALCIUM 8.7* ANIONGAP 9 LIVER PROFILE: Recent Labs 08/26/24 1606 AST 36* ALT 35* BILITOT 0.6 ALKPHOS 57 PROT 6.6 PT/INR: No results for input(s): PROTIME, INR in the last 72 hours. CARDIAC ENZYMES: No results for input(s): TROPONINI in the last 72 hours. Procalcitonin: No results found for: PROCAL Urine Culture: No results found for this or any previous visit. COVID-19 PCR: No results for input(s): COVID19 in the last 72 hours. I reviewed: [x] laboratory results [x] radiographic results At the time of today's encounter. Pt was advised of the results. Data: (CAT3) Discussed with ED provider, Dr. Landa, regarding patient's eval & mgmt thus far, andagree with the plan for hospitalization. (LOW: 2x CAT1 or independent historian MOD: 3x CAT1 or 1x CAT3 EXTENSIVE: 3x CAT1 and 1x CAT3) Assessment Discussed management with the ED provider and agree with hospitalization. Acute, acute on chronic, unstable/uncontrolled chronic problems/diagnoses: Acute exacerbation of HFpEF Organizing pneumonia Pleural effusion COPD HTN Stable chronic problems affecting care, new non-acute diagnoses: pAF INGA Pulmonary nodules Plan As a result of the above findings & factors, the following mgmt was pursued: - Patient received 1 dose of IV lasix in the ER however she appears euvolemic on exam, favor pulm process as the cause of her CRUZ, cardiology consulted due to history of HFpEF and concern for possible exacerbation - consult pulm for evaluation of effusion and possible thoracentesis, known history of OP; continueoutpatient steroid dose - cont atovaquone for PCP prophy - on tele given history of pAF and HF - just had recent echo showing EF 55 with grade 2 diastolic dysfunction, will defer to cards if they want repeat echo; strict I/Os in the meantime - hypertensive in the ER, cont home antihypertensives, adding on PRN IV hydralazine - SSI insulin given ongoing steroids and known history of DM2 - am labs, replace lytes prn - PT/OT/CM/SW - delirium precautions: increase activity and limit nighttime disturbances - DVT prophylaxis: encourage ambulation and already anticoagulated Complexity: Acute illness or injury posing a threat to life or body function (HIGH). Risk: Admission to hospital-level care was considered or occurred (HIGH). Advance Directive: Prior Anticipated Discharge - Date - 08/29/24 - Location - Home - Pending the following - improvement of CRUZ Total time spent (which include face to face and non face to face encounters) : 60 minutes. Toxic drug monitoring/narrow therapeutic index drug monitoring : # Drug name : prednisone # Route administered : oral # Method of monitoring : clinical status Extended Emergency Contact Information Primary Emergency Contact: LorraineJin Address: [address] [place] [id number] [place] [address] Mobile Relation: Spouse Secondary Emergency Contact: Ene Negrete Address: [address] [place], [place] [id number] [place] [address] Mobile Relation: Daughter [employer] Rolando Peters : 1945 Primary Care Physician: CELIA AL DO The patient and/or family/surrogate voluntarily agreed to participate in ACP services. Patient s cognitive capacity: has capacity Code Status: [x] [FULL CODE - Continue all advanced life support: CPR,intubation,invasive procedures] [_] [DNR-CCA - DO NOT do CPR, intubation] [_] [DNR-CHILD PROTECTION SPECIALIST - Comfort care only] [_] DNR form [was/was not] signed Summary of discussion: The patient health care POA/ surrogate is the following: patient. [Condition that instigated the ACP on this DOS, relevant PMH, functional status, goals of care, andwhom this was discussed with including names and relationship to the patient, and any relevant advance care documentation discussion] I answered all the patient/family questions that I could within the range and scope of the current medical situation. We discussed the medical conditions, risks, benefits, outcomes, and goals of careat this time for the patient's medical issues at hand in the face of the patient's chronic issues and current presentation. Total time spent: 15 minutes were spent discussing the patient's resuscitation status, advance careplanning, and end of life care, with patient and/or family/surrogate. Reginald Garza DO Division of Hospitalist Medicine [facility] [employer] Work Phone: [phone] [facility]2025 History and physical note* Reginald Garza DO - 08/26/2024 7:50 PM EST Attending History and Physical Admit Date: 08/26/2024 PCP: CELIA AL DO CHIEF COMPLAINT: SOB/CRUZ Reason for Admission: Dyspnea on exertion History Obtained From: patient HISTORY OF PRESENT ILLNESS: Rolando is a 79 y.o. female with past medical history organizing PNA, DM2, INGA, COPD, CKD3, history of pulm nodules, pAF, HFpEF, h/o breast CA who presents with chief complaint of dyspnea on exertion, CP, back pain. She is conversationally dyspneic in the ER. In the ER, vitals significant for BP 190s/70s, labs significant for BNP 6947, GFR 56.4, trop 22-->19, Hgb 9.9. CTA was obtained to rule out PE or dissection, this showed multiple pulm nodules, b/l pleural effusions and multiple areas of atherosclerosis but otherwise unremarkable. CXR showed interstitial edema. Of note, she was recently seen by pulm 08/19 for follow-up regarding multiple lung nodules who placed her on prolonged steroid co urse due to similar symptoms of CRUZ in the setting of organizing PNA. She is on atovaquone for PCP prophylaxis. There was some discussion of possible thoracentesis for R pleural effusion, she was hoping to defer for repeat imaging before making that decision. Will admit for further evaluation and management. Past Medical History: Past Medical History: Diagnosis Date Arrhythmia Arthritis Asthma Breast cancer (HCC) 1993 Right Breast(Mastectomy) Breast cancer (HCC) 2010 Left Breast(Simple Mastectomy, SLND) Chronic kidney disease COPD (chronic obstructive pulmonary disease) (HCC) Coronary artery disease Diabetes (HCC) Emphysema of lung (HCC) Within last year GERD (gastroesophageal reflux disease) High blood pressure Lung nodule Occlusion and stenosis of unspecified carotid artery Pure hypercholesterolemia Syncope and collapse 08/29/2022 Past Surgical History: Past Surgical History: Procedure Laterality Date BRONCHOSCOPY CARDIAC ELECTROPHYSIOLOGY PROCEDURE N/A 05/05/2024 Performed by Walt Leigh MD at [facility] Cardiac Cath/EP Lab CAROTID ENDARTERECTOMY Right 2008 CATARACT EXTRACTION Bilateral 2006 CHEST TUBE INSERTION Right 10/05/2023 ENDOBRONCHIAL ULTRASOUND EBUS (HISTORICAL) 10/05/2023 LUNG BIOPSY MASTECTOMY Left 2010 simple/reconstruction/gingivagrapht MASTECTOMY Right 1993 reconstruction (TRAM) TOTAL ABDOMINAL HYSTERECTOMY W/ BILATERAL SALPINGOOPHORECTOMY 1998 TUBAL LIGATION 1978 Social History: Social History Socioeconomic History Marital status: Spouse name: Not on file Number of children: Not on file Years of education: Not on file Highest education level: Not on file Occupational History Not on file Tobacco Use Smoking status: Former Current packs/day: 0.00 Average packs/day: 1 pack/day for 30.0 years (30.0 ttl pk-yrs) Types: Cigarettes Start date: 08/17/1963 Quit date: 08/17/1993 Years since quittin.0 Smokeless tobacco: Never 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: , 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[facility], 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, 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 Vaping Use Vaping status: Never Used Substance and Sexual Activity Alcohol use: Yes Alcohol/week: 2.0 - 16.0 standard drinks of alcohol Types: 2 Glasses of wine per week Comment: occ Drug use: No Comment: caffeine use: 1 cup of coffee a day Sexual activity: Not Currently Partners: Male control/protection: Other Other Topics Concern Not on file Social History Narrative Not on file Social Drivers of Health Financial Resource Strain: Not on file Food Insecurity: No Food Insecurity (01/19/2024) Hunger Vital Sign Worried About Running Out of Food in the Last Year: Never true Ran Out of Food in the Last Year: Never true Transportation Needs: No Transportation Needs (01/19/2024) PRAPARE - Transportation Lack of Transportation (Medical): No Lack of Transportation (Non-Medical): No Physical Activity: Not on file Stress: Not on file Social Connections: Not on file Intimate Partner Violence: Not At Risk (01/19/2024) Humiliation, Afraid, Rape, and Kick questionnaire Fear of Current or Ex-Partner: No Emotionally Abused: No Physically Abused: No Sexually Abused: No Housing Stability: Low Risk (01/19/2024) Housing Stability Vital Sign Unable to Pay for Housing in the Last Year: No Number of Places Lived in the Last Year: 1 Unstable Housing in the Last Year: No Family History: Family History Problem Relation Name Age of Onset Ovarian cancer Mother 66 Heart attack Father Lucita (Mother) 76 High Blood Pressure Father Lucita (Mother) Macular degeneration Father Lucita (Mother) Cancer Father Lucita (Mother) Ovarian cancer Mother's Sister 45 Other ([id number]) Son neuofibromatosis, BRCA1 positive Neurofibromatosis Son High Blood Pressure Son Cancer Son hairy cell leukemia Breast cancer Cousin 42 +brca Bladder Cancer Cousin 19 Hypertension Sister Angie Kidney disease Sister Angie Hypertension Sister Mireya Sister Kidney disease Sister Mireya Sister Medications Prior to Admission: No current facility-administered medications on file prior to encounter. Current Outpatient Medications on File Prior to Encounter Medication Sig Dispense Refill albuterol (Ventolin HFA) 108 (90 Base) MCG/ACT inhaler Inhale 2 puffs every 4 hours as needed for wheezing or shortness of breath. 8 g 11 apixaban (Eliquis) 5 MG tablet Take 1 tablet (5 mg) by mouth 2 times daily. 180 tablet 1 atovaquone (Mepron) 750 MG/5ML suspension Take 10 mL (1,500 mg) by mouth daily. 600 mL 0 carvedilol (Coreg) 12.5 MG tablet Take 1 tablet (12.5 mg) by mouth in the morning and 1 tablet (12.5 mg) in the evening. Take with meals. 180 tablet 1 cholecalciferol (Vitamin D-3) 50 MCG (2000 UT) tablet Take 4,000 Units by mouth daily. Contour Next Test test strip USE ONE strip TO test TWICE DAILY ezetimibe (Zetia) 10 MG tablet Take 1 tablet (10 mg) by mouth in the morning. 90 tablet 2 Finerenone (Kerendia) 10 MG tablet Take 1 tablet by mouth daily. fluticasone (Cutivate) 0.05 % cream Apply topically Daily as needed (itching). fluticasone (Flonase) 50 MCG/ACT nasal spray Administer 1 spray into each nostril daily. Shake gently. Before first use, prime pump. After use, clean tip and replace cap. furosemide (Lasix) 20 MG tablet Take 1 tablet (20 mg) by mouth Daily as needed (weight gain, swelling or shortness of breath). guaiFENesin (Mucinex) 600 MG 12 hr tablet Take 1,200 mg by mouth twice a day. Jentadueto XR 2.5-1000 MG per 24 hr tablet take 2 tablets by mouth once daily lansoprazole (Prevacid) [address] capsule 1 capsule in the morning. losartan (Cozaar) 100 MG tablet Take 1 tablet (100 mg) by mouth daily. 90 tablet 1 Multiple Vitamins-Minerals (MULTIPLE VITAMINS/WOMENS PO) Take by mouth daily. predniSONE (Deltasone) 20 MG tablet Take 3 tablets (60 mg) by mouth daily. Take 3 tablets (60 mg) daily x 14 days, then 2.5 tablets (50 mg) daily x 14 days, then 2 tablets (40 mg) daily until follow-up 180 tablet 0 rosuvastatin (Crestor) 10 MG tablet daily. sertraline (Zoloft) 25 MG tablet Take 1 tablet (25 mg) by mouth daily. 30 tablet 11 tiotropium (Spiriva Respimat) 2.5 MCG/ACT inhaler Inhale 2 puffs daily. 1 each 11 Vascepa 1 g capsule TAKE 2 CAPSULES BY MOUTH 2 TIMES DAILY 360 capsule 3 Allergies: Allergies Allergen Reactions Isosulfan Blue Anaphylaxis Methylene Blue Sulfa Antibiotics Rash REVIEW OF SYSTEMS: Constitutional: Negative for fever, chills, activity change and unexpected weight change. HEENT: Negative for congestion, postnasal drip and sneezing. Eyes: Negative for itching and visual disturbance. Respiratory: positive for SOB, wheezing, CRUZ. Cardiovascular: positive for chest pain. Gastrointestinal: Negative for nausea, vomiting, abdominal pain, diarrhea and blood in stool. Genitourinary: Negative for dysuria, frequency and flank pain. Musculoskeletal: Negative for myalgias and joint swelling. Skin: Negative for rash. Neurological: Negative for dizziness, tremors, seizures, syncope, facial asymmetry, speech difficulty, weakness, numbness and headaches. Hematological: Negative for adenopathy. Psychiatric/Behavioral: Negative for suicidal ideas, behavioral problems, self- injury and dysphoricmood. Vitals: BP (!) 182/60 Pulse 70 Temp 36.7 C (98.1 F) (Oral) Resp 14 Ht 1.702 m (5' 7) Wt 63.5 kg (140 lb) SpO2 95% BMI 21.93 kg/m BMI Classification: Normal Weight (BMI 18.5-24.9) Pulse Ox: SpO2 Av.7 % Min: 95 % Max: 98 % Supplemental O2: PHYSICAL EXAM: Physical Exam Constitutional: Appearance: Normal appearance. She is not ill-appearing. HENT: Head: Normocephalic and atraumatic. Nose: No congestion or rhinorrhea. Mouth/Throat: Mouth: Mucous membranes are moist. Pharynx: Oropharynx is clear. Eyes: Extraocular Movements: Extraocular movements intact. Pupils: Pupils are equal, round, and reactive to light. Cardiovascular: Rate and Rhythm: Normal rate and regular rhythm. Pulses: Normal pulses. Heart sounds: No murmur heard. No gallop. Pulmonary: Breath sounds: Wheezing present. Comments: Conversational dyspnea Abdominal: General: Abdomen is flat. Bowel sounds are normal. Palpations: Abdomen is soft. Musculoskeletal: General: Swelling (scant bilateral LE edema) present. Cervical back: Normal range of motion and neck supple. Skin: General: Skin is warm and dry. Findings: No erythema. Neurological: General: No focal deficit present. Mental Status: She is alert and oriented to person, place, and time. DATA: CBC: Recent Labs 08/26/24 1606 WBC 7.9 RBC 3.42* HGB 9.9* HCT 31.2* MCV 91.2 RDW 14.6 PLT 235 BMP: Recent Labs 08/26/24 1606 NA 135* K 4.7 CL 106 CO2 20* BUN 27* CREATININE 1.02 GLUCOSE 171* CALCIUM 8.7* ANIONGAP 9 LIVER PROFILE: Recent Labs 08/26/24 1606 AST 36* ALT 35* BILITOT 0.6 ALKPHOS 57 PROT 6.6 PT/INR: No results for input(s): PROTIME, INR in the last 72 hours. CARDIAC ENZYMES: No results for input(s): TROPONINI in the last 72 hours. Procalcitonin: No results found for: PROCAL Urine Culture: No results found for this or any previous visit. COVID-19 PCR: No results for input(s): COVID19 in the last 72 hours. I reviewed: [x] laboratory results [x] radiographic results At the time of today's encounter. Pt was advised of the results. Data: (CAT3) Discussed with ED provider, Dr. Landa, regarding patient's eval & mgmt thus far, andagree with the plan for hospitalization. (LOW: 2x CAT1 or independent historian MOD: 3x CAT1 or 1x CAT3 EXTENSIVE: 3x CAT1 and 1x CAT3) Assessment Discussed management with the ED provider and agree with hospitalization. Acute, acute on chronic, unstable/uncontrolled chronic problems/diagnoses: Acute exacerbation of HFpEF Organizing pneumonia Pleural effusion COPD HTN Stable chronic problems affecting care, new non-acute diagnoses: pAF INGA Pulmonary nodules Plan As a result of the above findings & factors, the following mgmt was pursued: - Patient received 1 dose of IV lasix in the ER however she appears euvolemic on exam, favor pulm process as the cause of her CRUZ, cardiology consulted due to history of HFpEF and concern for possible exacerbation - consult pulm for evaluation of effusion and possible thoracentesis, known history of OP; continueoutpatient steroid dose - cont atovaquone for PCP prophy - on tele given history of pAF and HF - just had recent echo showing EF 55 with grade 2 diastolic dysfunction, will defer to cards if they want repeat echo; strict I/Os in the meantime - hypertensive in the ER, cont home antihypertensives, adding on PRN IV hydralazine - SSI insulin given ongoing steroids and known history of DM2 - am labs, replace lytes prn - PT/OT/CM/SW - delirium precautions: increase activity and limit nighttime disturbances - DVT prophylaxis: encourage ambulation and already anticoagulated Complexity: Acute illness or injury posing a threat to life or body function (HIGH). Risk: Admission to hospital-level care was considered or occurred (HIGH). Advance Directive: Prior Anticipated Discharge - Date - 08/29/24 - Location - Home - Pending the following - improvement of CRUZ Total time spent (which include face to face and non face to face encounters) : 60 minutes. Toxic drug monitoring/narrow therapeutic index drug monitoring : # Drug name : prednisone # Route administered : oral # Method of monitoring : clinical status Extended Emergency Contact Information Primary Emergency Contact: Jin Peters Address: [facility] [place] [address] [place] Mobile Relation: Spouse Secondary Emergency Contact: Ene Negrete Address: [address] [place] [address] [facility] Mobile Relation: Daughter [employer] Rolando Peters : 1945 Primary Care Physician: CELIA AL DO The patient and/or family/surrogate voluntarily agreed to participate in ACP services. Patient s cognitive capacity: has capacity Code Status: [x] [FULL CODE - Continue all advanced life support: CPR,intubation,invasive procedures] [_] [DNR-CCA - DO NOT do CPR, intubation] [_] [DNR-CHILD PROTECTION SPECIALIST - Comfort care only] [_] DNR form [was/was not] signed Summary of discussion: The patient health care POA/ surrogate is the following: patient. [Condition that instigated the ACP on this DOS, relevant PMH, functional status, goals of care, andwhom this was discussed with including names and relationship to the patient, and any relevant advance care documentation discussion] I answered all the patient/family questions that I could within the range and scope of the current medical situation. We discussed the medical conditions, risks, benefits, outcomes, and goals of careat this time for the patient's medical issues at hand in the face of the patient's chronic issues and current presentation. Total time spent: 15 minutes were spent discussing the patient's resuscitation status, advance careplanning, and end of life care, with patient and/or family/surrogate. Reginald Garza DO Division of Hospitalist Medicine [facility] documented in this [facility]2025 Emergency department Note* Leticia Landa MD - 08/26/2024 3:28 PM EST EMERGENCY DEPARTMENT ENCOUNTER Pt Name: Rolando Peters Birthdate 1945 Date of evaluation: 08/26/2024 ED Provider: Leticia Lnada MD CHIEF COMPLAINT Chief Complaint Patient presents with Chest Pain Pt presents to er from doctors office for chest pain, back pain and sob. Pt states chest pain is gone now but still has sob on exertion. HISTORY OF PRESENT ILLNESS (Location/Symptom, Timing/Onset, Context/Setting, Quality, Duration, Modifying Factors, Severity) Note limiting factors. HPI Rolando Peters is a 79 y.o. female who presents to the emergency department for chest pain. Patient states that around 4 this morning she woke up and was having pain in her chest that felt like someonewas sitting on it as well as pain into her back but she states it felt like someone was pushing herknuckles into her back and shortness of breath. She states that she had similar symptoms in the past in January when she was diagnosed with atrial fibrillation. She is now status post ablation and is currently taking carvedilol and Eliquis and has not missed any doses. She states that the symptoms seem to get better so she went about her day. She did have a normal PCP appointment today that was already scheduled and told her doctor about the symptoms that she has been noticing that she does have exertional dyspnea today and her doctor, and 1 brought her to the emergency department. She is denying chest pain at this time but does note that she has shortness of breath still on exertion. Nursing Notes were reviewed. REVIEW OF SYSTEMS Review of Systems Pertinent positives and negatives per HPI PAST MEDICAL HISTORY Past Medical History: Diagnosis Date Arrhythmia Arthritis Asthma Breast cancer (HCC) 1993 Right Breast(Mastectomy) Breast cancer (HCC) 2010 Left Breast(Simple Mastectomy, SLND) Chronic kidney disease COPD (chronic obstructive pulmonary disease) (HCC) Coronary artery disease Diabetes (HCC) Emphysema of lung (HCC) Within last year GERD (gastroesophageal reflux disease) High blood pressure Lung nodule -2022 Occlusion and stenosis of unspecified carotid artery Pure hypercholesterolemia Syncope and collapse 08/29/2022 SURGICAL HISTORY Past Surgical History: Procedure Laterality Date BRONCHOSCOPY CARDIAC ELECTROPHYSIOLOGY PROCEDURE N/A 05/05/2024 Performed by Walt Leigh MD at [facility] Cardiac Cath/EP Lab CAROTID ENDARTERECTOMY Right 2008 CATARACT EXTRACTION Bilateral 2006 CHEST TUBE INSERTION Right 10/05/2023 ENDOBRONCHIAL ULTRASOUND EBUS (HISTORICAL) 10/05/2023 LUNG BIOPSY MASTECTOMY Left 2010 simple/reconstruction/gingivagrapht MASTECTOMY Right 1994 reconstruction (TRAM) TOTAL ABDOMINAL HYSTERECTOMY W/ BILATERAL SALPINGOOPHORECTOMY 1998 TUBAL LIGATION 1979 CURRENT MEDICATIONS Previous Medications ALBUTEROL (VENTOLIN HFA) 108 (90 BASE) MCG/ACT INHALER Inhale 2 puffs every 4 hours as needed for wheezing or shortness of breath. APIXABAN (ELIQUIS) 5 MG TABLET Take 1 tablet (5 mg) by mouth 2 times daily. ATOVAQUONE (MEPRON) 750 MG/5ML SUSPENSION Take 10 mL (1,500 mg) by mouth daily. CARVEDILOL (COREG) 12.5 MG TABLET Take 1 tablet (12.5 mg) by mouth in the morning and 1 tablet (12.5 mg) in the evening. Take with meals. CHOLECALCIFEROL (VITAMIN D-3) 50 MCG (2000 UT) TABLET Take 4,000 Units by mouth daily. CONTOUR NEXT TEST TEST STRIP USE ONE strip TO test TWICE DAILY EZETIMIBE (ZETIA) 10 MG TABLET Take 1 tablet (10 mg) by mouth in the morning. FINERENONE (KERENDIA) 10 MG TABLET Take 1 tablet by mouth daily. FLUTICASONE (CUTIVATE) 0.05 % CREAM Apply topically Daily as needed (itching). FLUTICASONE (FLONASE) 50 MCG/ACT NASAL SPRAY Administer 1 spray into each nostril daily. Shake gently. Before first use, prime pump. After use, clean tip and replace cap. FUROSEMIDE (LASIX) 20 MG TABLET Take 1 tablet (20 mg) by mouth Daily as needed (weight gain, swelling or shortness of breath). GUAIFENESIN (MUCINEX) 600 MG 12 HR TABLET Take 1,200 mg by mouth twice a day. JENTADUETO XR 2.5-1000 MG PER 24 HR TABLET take 2 tablets by mouth once daily LANSOPRAZOLE (PREVACID) [address] CAPSULE 1 capsule in the morning. LOSARTAN (COZAAR) 100 MG TABLET Take 1 tablet (100 mg) by mouth daily. MULTIPLE VITAMINS-MINERALS (MULTIPLE VITAMINS/WOMENS PO) Take by mouth daily. PREDNISONE (DELTASONE) 20 MG TABLET Take 3 tablets (60 mg) by mouth daily. Take 3 tablets (60 mg) daily x 14 days, then 2.5 tablets (50 mg) daily x 14 days, then 2 tablets (40 mg) daily until follow-up ROSUVASTATIN (CRESTOR) 10 MG TABLET daily. SERTRALINE (ZOLOFT) 25 MG TABLET Take 1 tablet (25 mg) by mouth daily. TIOTROPIUM (SPIRIVA RESPIMAT) 2.5 MCG/ACT INHALER Inhale 2 puffs daily. VASCEPA 1 G CAPSULE TAKE 2 CAPSULES BY MOUTH 2 TIMES DAILY ALLERGIES Isosulfan blue, Methylene blue, and Sulfa antibiotics FAMILY HISTORY Family History Problem Relation Name Age of Onset Ovarian cancer Mother 66 Heart attack Father Lucita (Mother) 76 High Blood Pressure Father Lucita (Mother) Macular degeneration Father Lucita (Mother) Cancer Father Lucita (Mother) Ovarian cancer Mother's Sister 45 Other ([id number]) Son neuofibromatosis, BRCA1 positive Neurofibromatosis Son High Blood Pressure Son Cancer Son hairy cell leukemia Breast cancer Cousin 42 +brca Bladder Cancer Cousin 19 Hypertension Sister Angie Kidney disease Sister Angie Hypertension Sister Mireya Sister Kidney disease Sister Mireya Sister SOCIAL HISTORY Social History Socioeconomic History Marital status: Tobacco Use Smoking status: Former Current packs/day: 0.00 Average packs/day: 1 pack/day for 30.0 years (30.0 ttl pk-yrs) Types: Cigarettes Start date: 08/17/1963 Quit date: 08/17/1993 Years since quittin.0 Smokeless tobacco: Never 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: , 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[facility], 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, 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 Vaping Use Vaping status: Never Used Substance and Sexual Activity Alcohol use: Yes Alcohol/week: 2.0 - 16.0 standard drinks of alcohol Types: 2 Glasses of wine per week Comment: occ Drug use: No Comment: caffeine use: 1 cup of coffee a day Sexual activity: Not Currently Partners: Male control/protection: Other Social Drivers of Health Food Insecurity: No Food Insecurity (01/19/2024) Hunger Vital Sign Worried About Running Out of Food in the Last Year: Never true Ran Out of Food in the Last Year: Never true Transportation Needs: No Transportation Needs (01/19/2024) PRAPARE - Transportation Lack of Transportation (Medical): No Lack of Transportation (Non-Medical): No Intimate Partner Violence: Not At Risk (01/19/2024) Humiliation, Afraid, Rape, and Kick questionnaire Fear of Current or Ex-Partner: No Emotionally Abused: No Physically Abused: No Sexually Abused: No Housing Stability: Low Risk (01/19/2024) Housing Stability Vital Sign Unable to Pay for Housing in the Last Year: No Number of Places Lived in the Last Year: 1 Unstable Housing in the Last Year: No SCREENINGS Norman Coma Scale Best Eye Response: Spontaneous Best Verbal Response: Oriented Best Motor Response: Follows commands Steffany Coma Scale Score: 15 PHYSICAL EXAM ED Triage Vitals Temp Heart Rate Resp BP 08/26/24 1545 08/26/24 1545 08/26/24 1546 08/26/24 1546 36.7 C (98.1 F) 77 14 (!) 180/132 SpO2 Temp Source Heart Rate Source Patient Position 08/26/24 1546 08/26/24 1545 -- 08/26/24 1546 98 % Oral Sitting BP Location FiO2 (%) 08/26/24 1546 -- Left arm Physical Exam Well-appearing female in no acute distress. Vital signs reviewed and noted hypertension with a blood pressure of 180/132. Lungs are clear to auscultation bilaterally. Patient does have conservation no dyspnea. Speaking in4-5 word sentences but becomes short of breath at the end of it. Her chest wall is nontender to palpation. She is 2+ radial pulses bilaterally. Regular rate and rhythm. Her abdomen is soft and nontender to palpation. She has no lower extremity edema. DIAGNOSTIC RESULTS RADIOLOGY (Per Emergency Physician): Interpretation per the Radiologist below, if available at the time of this note: CTA chest abdomen pelvis angiogram w and/or wo contrast Final Result Addendum (preliminary) 1 of Patient Name: ROLANDO PETERS : 1945 [facility]#: [id number] Exam Date/Time: 08/26/2024 17:03 Procedure: CT CHEST ABDOMEN PELVIS ANGIOGRAM W AND/OR WO CONTRAST Ordering Provider: LANDA YASMIN Reason For Exam: ro dissection --------ADDENDUM #1 -------- Addendum issued to include a fifth impression. This finding was described in the body of the report. 5. Single mildly dilated small bowel loop in the left hemiabdomen but without a discrete transition point to suggest obstruction. Findings could be due to ileus or peristalsis. Consider follow-up imaging if warranted. Report Dictated on Electronically Signed By: Deven Mendoza MD Electronically Signed Date/Time: 08/26/2024 6:22 PM EST --------ORIGINAL REPORT -------- CT ANGIOGRAPHY CHEST, ABDOMEN AND PELVIS: CLINICAL INDICATION: Chest and back pain TECHNIQUE: Transaxial sequence was performed through the chest without IV contrast and then again through the chest, abdomen and pelvis during dynamic intravenous infusion of 75 mL of nonionic contrast media, injected at a high flow rate following a adjunct psychology faculty member study. Multiplanar and 3D MIP reconstruction was performed concurrently with independent viewing software. Dose reduction was employed with automated exposure control. COMPARISON: 07/27/2024, 01/19/2024 FINDINGS: Vessels: Diffuse atherosclerotic calcifications are present throughout the thoracoabdominal aorta and its branches Thoracic aorta: No intramural hematoma on the unenhanced images. No aortic dissection or penetrating atherosclerotic ulcer. Conventional aortic arch anatomy. The thoracic aorta is normal in caliber. Abdominal aorta: The abdominal aorta is normal in caliber. No aortic dissection. Common iliac arteries: Patent left common iliac artery with stenosis. There is marked stenosis of the right common iliac artery. Internal iliac arteries: Patent left internal iliac artery. There is marked stenosis versus occlusion of the proximal right internal iliac artery though this appears similar to the prior CT.. External iliac arteries: Patent left external iliac artery. There is marked stenosis of the right external iliac artery Common femoral arteries: Patent Proximal femoral and proximal deep femoral arteries: Patent Celiac axis: Patent. There are significant atherosclerotic calcifications in the splenic artery with areas of stenosis. 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 Inferior mesenteric artery: Patent. Renal arteries: Patent with stenosis of the origins of both renal arteries, greater on the right Lungs: Moderate emphysematous changes. Subsegmental bibasilar atelectasis. There is smooth interlobular septal thickening bilaterally with some scattered groundglass opacities most notable in the lower lobes. Multiple lung nodules are again present, including a 9 mm right lower lobe nodule (series 6 image 162), a cluster of left upper lobe nodules measuring up to 10 mm (image 172 and on enlarged cluster of nodules in the right lower lobe now measuring 2.3 x 2.0 cm (image 216), now more confluent in appearance. Pleural fluid: Moderate right and trace left pleural effusions, unchanged. Heart/Great vessels: Cardiac chambers are normal in size. Coronary artery calcifications are noted. Mediastinum/Jody: Unremarkable. Soft tissues chest wall: Surgical clips in the right breast. Partly visualized left breast implant. Liver: Normal size and contour. No focal lesion. Biliary tree: Normal caliber. The gallbladder is nondistended. Spleen: Normal. Adrenals: Normal. Pancreas: Normal. Kidneys: Symmetric contrast enhancement without hydronephrosis. No focal lesion. Free fluid: None. Retroperitoneum and mesentery: No enlarged lymph nodes. Bowel: There is a focal loop of small bowel which is mildly dilated in the left hemiabdomen. However, no discrete transition point is identified. The remainder of the bowel is normal in caliber. No bowel wall thickening. The appendix is nondistended. Abdominal wall: Normal. Pelvic organs/viscera: No mass identified. Status post hysterectomy. Pelvic lymphadenopathy: None. Osseous structures: Degenerative change of the visualized spine is noted. IMPRESSION: 1. No evidence of acute aortic dissection, penetrating atherosclerotic ulcer or intramural hematoma. 2. Advanced atherosclerotic disease. Redemonstration of marked stenosis versus occlusion of the proximal right internal iliac artery. Numerous other areas of stenosis are present, as detailed above. 3. Multiple lung nodules bilaterally, posterior which are unchanged but with a worsening cluster of nodular densities in the right lower lobe. These are indeterminate but could be due to progressive infectious/inflammatory process. However, recommend either short-term follow-up imaging in three months or tissue sampling or PET/CT as a neoplasm is not excluded. 4. Bilateral pleural effusions, greater on the right, unchanged. Interlobular septal thickening and groundglass opacities related to pulmonary edema. Report Dictated on Electronically Signed By: Deven Mendoza MD Electronically Signed Date/Time: 08/26/2024 5:54 PM EST Final 1. No evidence of acute aortic dissection, penetrating atherosclerotic ulcer or intramural hematoma. 2. Advanced atherosclerotic disease. Redemonstration of marked stenosis versus occlusion of the proximal right internal iliac artery. Numerous other areas of stenosis are present, as detailed above. 3. Multiple lung nodules bilaterally, posterior which are unchanged but with a worsening cluster ofnodular densities in the right lower lobe. These are indeterminate but could be due to progressive infectious/inflammatory process. However, recommend either short-term follow-up imaging in three months or tissue sampling or PET/CT as a neoplasm is not excluded. 4. Bilateral pleural effusions, greater on the right, unchanged. Interlobular septal thickening andgroundglass opacities related to pulmonary edema. Report Dictated on Electronically Signed By: Deven Mendoza MD Electronically Signed Date/Time: 08/26/2024 5:54 PM EST XR chest 1 view Final Result FINDINGS AND IMPRESSION: SUPPORT DEVICES: EKG leads OSSEOUS STRUCTURES: Unremarkable. HEART AND MEDIASTINUM: The cardiomediastinal silhouette appears unchanged from the prior exam. LUNGS AND PLEURA: Pulmonary venous congestion with interstitial edema. Unchanged nodular density inthe left midlung. Small right pleural effusion and left basilar atelectasis. Report Dictated on Electronically Signed By: Deven Mendoza MD Electronically Signed Date/Time: 08/26/2024 4:36 PM EST LABS: Labs Reviewed CBC WITH AUTO DIFFERENTIAL - Abnormal Result Value Auto WBC 7.9 RBC 3.42 (*) Hemoglobin 9.9 (*) Hematocrit 31.2 (*) MCV 91.2 MCH 28.9 MCHC 31.7 RDW 14.6 Platelets 235 MPV 9.7 COMPREHENSIVE METABOLIC PANEL - Abnormal SODIUM 135 (*) POTASSIUM 4.7 CHLORIDE 106 CARBON DIOXIDE 20 (*) ANION GAP 9 UREA NITROGEN 27 (*) CREATININE 1.02 GLUCOSE 171 (*) CALCIUM 8.7 (*) AST (SGOT) 36 (*) ALT 35 (*) ALKALINE PHOSPHATASE 57 ALBUMIN 3.6 BILIRUBIN, TOTAL 0.6 TOTAL PROTEIN 6.6 eGFR 56.4 (*) HIGH SENSITIVITY TROPONIN, SERIAL BASELINE - Abnormal Troponin HS, Serial Baseline 22 (*) NT PRO BNP - Abnormal NT PRO BNP 6,947 (*) HIGH SENSITIVITY TROPONIN, SERIAL, SECOND TEST - Abnormal Troponin HS, Serial Second 19 (*) Troponin HS Delta, Baseline to Second -3 MANUAL DIFFERENTIAL (CELLAVISION) - Abnormal RBC Morphology abnormal Poikilocytes Moderate (*) Ovalocytes Moderate (*) Horatio Cells Slight (*) Neutrophils % 96 (*) Lymphocytes % 3 (*) Monocytes % 1 (*) Absolute Neutrophil Count 7.6 (*) Lymphocytes Absolute 0.2 (*) Monocytes Absolute 0.1 Neutrophils Manual 94 Lymphocytes Manual 3 Monocytes Manual 1 Eosinophils Manual Basophils Manual Bands Manual Metamyelocytes Manual Myelocytes Manual Promyelocytes Manual Blasts Manual Atypical Lymphocytes Manual Unclassified Cells, Manual SARS-COV-2, FLU A/B, AND RSV COMBO - Normal SARS-CoV-2 Not Detected Respiratory Syncytial Virus Not Detected Influenza A Not Detected Influenza B Not Detected Narrative: Methodology: real-time, RT-PCR The SARS-CoV-2, Flu A/B, and RSV Combo assay is intended for in vitro diagnostic use under the FDA Emergency Use Authorization (EUA). This test has not been FDA cleared or approved. In compliance with this authorization, please visit www.fda.gov/media/998648/download or www.fda.gov/media/110208/download to access the applicable information sheets. All other labs were within normal range or not returned as of this dictation. EKG: EKG at 1546 interpreted by me: Sinus rhythm with rate of 73. Normal axis. Normal intervals. No ST segment elevations or depressions. EMERGENCY DEPARTMENT COURSE and DIFFERENTIAL DIAGNOSIS/MDM: Vitals: Vitals: 08/26/24 1545 08/26/24 1546 08/26/24 1807 08/26/24 1930 BP: (!) 180/132 (!) 191/72 (!) 182/60 BP Location: Left arm Left arm Patient Position: Sitting Sitting Pulse: 77 79 83 70 Resp: 14 20 14 Temp: 36.7 C (98.1 F) TempSrc: Oral SpO2: 98% 97% 95% Weight: 63.5 kg (140 lb) Height: 1.702 m (5' 7) Medications furosemide (Lasix) injection 20 mg (20 mg IntraVENous Given 08/26/24 1807) iopamidol (Isovue-370) 76 % injection 75 mL (75 mL IntraVENous Given 08/26/24 1725) labetalol (Normodyne,Trandate) injection 20 mg (20 mg IntraVENous Given 08/26/24 1909) Medical Decision Making 79-year-old female presenting to the emergency department today for chest pain and shortness of breath. She is afebrile hemodynamically stable. Had chest pain radiating into the middle of her back with shortness of breath this morning. The chest pain has since resolved but she does still have exertional and conversational dyspnea. Concern for ACS, aortic dissection, less likely PE as she is not tachycardic or hypoxic, viral pneumonia or bacterial pneumonia among others. Broad workup initiated including EKG, CBC, CMP, troponin, BNP, viral testing and a CTA of her chestand pelvis to rule out acute dissection. I reviewed her CTA notes any signs of acute dissection. She does have some stenosis but nothing concerning at this time. Her troponin is mildly elevated and her delta troponin is downtrending. Her BNP is elevated at 6000. The CTA does show signs of pulmonary edema as well as a pleural effusion withsome lung nodules. Patient knows of these lung nodules. Her blood pressure Getting more and more elevated. I did give her a dose of labetalol as well as IVLasix. I think that this is exertional dyspnea secondary to her heart failure that she has. Patientwill be admitted for diuresis and further care. She is agreeable this plan. Admitted in stable condition. Diagnostic tests considered but not performed: External records reviewed: Diagnostics interpreted by me: CT chest Discussions with other clinicians: Dr. Garza, hospitalist Chronic conditions impacting care: Social determinants of health affecting care: ED Medications managed: Medications furosemide (Lasix) injection 20 mg (20 mg IntraVENous Given 08/26/24 1807) iopamidol (Isovue-370) 76 % injection 75 mL (75 mL IntraVENous Given 08/26/24 1725) labetalol (Normodyne,Trandate) injection 20 mg (20 mg IntraVENous Given 08/26/24 1909) Prescription drugs considered: I Leticia Landa MD am the saturator tender of record. FINAL IMPRESSION 1. Exertional shortness of breath DISPOSITION Admit 08/26/2024 07:42:01 PM PATIENT REFERRED TO: No follow-up provider specified. DISCHARGE MEDICATIONS: New Prescriptions No medications on file (Comment: Please note this report has been produced using speech recognition software and may contain errors related to that system including errors in grammar, punctuation, and spelling, as well as words and phrases that may be inappropriate. If there are any questions or concerns please feel freeto contact the dictating provider for clarification.) Leticia Landa MD (electronically signed) Emergency Medicine Provider Leticia Landa MD 08/26/241943 * Deven Rosales RN - 08/26/2024 3:28 PM EST Pt presents to er from doctors office for chest pain, back pain and sob. Pt states chest pain is gone now but still has sob on exertion. documented in this [facility]2025 Emergency department Triage note* Deven Rosales RN - 08/26/2024 3:28 PM EST Pt presents to er from doctors office for chest pain, back pain and sob. Pt states chest pain is gone now but still has sob on exertion. [id number] Emergency department Note* Leticia Landa MD - 08/26/2024 3:28 PM EST EMERGENCY DEPARTMENT ENCOUNTER Pt Name: Rolando Peters Birthdate 1945 Date of evaluation: 08/26/2024 ED Provider: Leticia Landa MD CHIEF COMPLAINT Chief Complaint Patient presents with Chest Pain Pt presents to er from doctors office for chest pain, back pain and sob. Pt states chest pain is gone now but still has sob on exertion. HISTORY OF PRESENT ILLNESS (Location/Symptom, Timing/Onset, Context/Setting, Quality, Duration, Modifying Factors, Severity) Note limiting factors. HPI Rolando Peters is a 79 y.o. female who presents to the emergency department for chest pain. Patient states that around 4 this morning she woke up and was having pain in her chest that felt like someonewas sitting on it as well as pain into her back but she states it felt like someone was pushing herknuckles into her back and shortness of breath. She states that she had similar symptoms in the past in January when she was diagnosed with atrial fibrillation. She is now status post ablation and is currently taking carvedilol and Eliquis and has not missed any doses. She states that the symptoms seem to get better so she went about her day. She did have a normal PCP appointment today that was already scheduled and told her doctor about the symptoms that she has been noticing that she does have exertional dyspnea today and her doctor, and 1 brought her to the emergency department. She is denying chest pain at this time but does note that she has shortness of breath still on exertion. Nursing Notes were reviewed. REVIEW OF SYSTEMS Review of Systems Pertinent positives and negatives per HPI PAST MEDICAL HISTORY Past Medical History: Diagnosis Date Arrhythmia Arthritis Asthma Breast cancer (HCC) 1993 Right Breast(Mastectomy) Breast cancer (HCC) 2010 Left Breast(Simple Mastectomy, SLND) Chronic kidney disease COPD (chronic obstructive pulmonary disease) (HCC) Coronary artery disease Diabetes (HCC) Emphysema of lung (HCC) Within last year GERD (gastroesophageal reflux disease) High blood pressure Lung nodule -2022 Occlusion and stenosis of unspecified carotid artery Pure hypercholesterolemia Syncope and collapse 08/29/2022 SURGICAL HISTORY Past Surgical History: Procedure Laterality Date BRONCHOSCOPY CARDIAC ELECTROPHYSIOLOGY PROCEDURE N/A 05/05/2024 Performed by Walt Leigh MD at [facility] Cardiac Cath/EP Lab CAROTID ENDARTERECTOMY Right 2008 CATARACT EXTRACTION Bilateral 2006 CHEST TUBE INSERTION Right 10/05/2023 ENDOBRONCHIAL ULTRASOUND EBUS (HISTORICAL) 10/05/2023 LUNG BIOPSY MASTECTOMY Left 2010 simple/reconstruction/gingivagrapht MASTECTOMY Right 1993 reconstruction (TRAM) TOTAL ABDOMINAL HYSTERECTOMY W/ BILATERAL SALPINGOOPHORECTOMY 1998 TUBAL LIGATION 1979 CURRENT MEDICATIONS Previous Medications ALBUTEROL (VENTOLIN HFA) 108 (90 BASE) MCG/ACT INHALER Inhale 2 puffs every 4 hours as needed for wheezing or shortness of breath. APIXABAN (ELIQUIS) 5 MG TABLET Take 1 tablet (5 mg) by mouth 2 times daily. ATOVAQUONE (MEPRON) 750 MG/5ML SUSPENSION Take 10 mL (1,500 mg) by mouth daily. CARVEDILOL (COREG) 12.5 MG TABLET Take 1 tablet (12.5 mg) by mouth in the morning and 1 tablet (12.5 mg) in the evening. Take with meals. CHOLECALCIFEROL (VITAMIN D-3) 50 MCG (2000 UT) TABLET Take 4,000 Units by mouth daily. CONTOUR NEXT TEST TEST STRIP USE ONE strip TO test TWICE DAILY EZETIMIBE (ZETIA) 10 MG TABLET Take 1 tablet (10 mg) by mouth in the morning. FINERENONE (KERENDIA) 10 MG TABLET Take 1 tablet by mouth daily. FLUTICASONE (CUTIVATE) 0.05 % CREAM Apply topically Daily as needed (itching). FLUTICASONE (FLONASE) 50 MCG/ACT NASAL SPRAY Administer 1 spray into each nostril daily. Shake gently. Before first use, prime pump. After use, clean tip and replace cap. FUROSEMIDE (LASIX) 20 MG TABLET Take 1 tablet (20 mg) by mouth Daily as needed (weight gain, swelling or shortness of breath). GUAIFENESIN (MUCINEX) 600 MG 12 HR TABLET Take 1,200 mg by mouth twice a day. JENTADUETO XR 2.5-1000 MG PER 24 HR TABLET take 2 tablets by mouth once daily LANSOPRAZOLE (PREVACID) [address] CAPSULE 1 capsule in the morning. LOSARTAN (COZAAR) 100 MG TABLET Take 1 tablet (100 mg) by mouth daily. MULTIPLE VITAMINS-MINERALS (MULTIPLE VITAMINS/WOMENS PO) Take by mouth daily. PREDNISONE (DELTASONE) 20 MG TABLET Take 3 tablets (60 mg) by mouth daily. Take 3 tablets (60 mg) daily x 14 days, then 2.5 tablets (50 mg) daily x 14 days, then 2 tablets (40 mg) daily until follow-up ROSUVASTATIN (CRESTOR) 10 MG TABLET daily. SERTRALINE (ZOLOFT) 25 MG TABLET Take 1 tablet (25 mg) by mouth daily. TIOTROPIUM (SPIRIVA RESPIMAT) 2.5 MCG/ACT INHALER Inhale 2 puffs daily. VASCEPA 1 G CAPSULE TAKE 2 CAPSULES BY MOUTH 2 TIMES DAILY ALLERGIES Isosulfan blue, Methylene blue, and Sulfa antibiotics FAMILY HISTORY Family History Problem Relation Name Age of Onset Ovarian cancer Mother 66 Heart attack Father Lucita (Mother) 76 High Blood Pressure Father Lucita (Mother) Macular degeneration Father Lucita (Mother) Cancer Father Lucita (Mother) Ovarian cancer Mother's Sister 45 Other ([id number]) Son neuofibromatosis, BRCA1 positive Neurofibromatosis Son High Blood Pressure Son Cancer Son hairy cell leukemia Breast cancer Cousin 42 +brca Bladder Cancer Cousin 19 Hypertension Sister Angie Kidney disease Sister Angie Hypertension Sister Mireya Sister Kidney disease Sister Mireya Sister SOCIAL HISTORY Social History Socioeconomic History Marital status: Tobacco Use Smoking status: Former Current packs/day: 0.00 Average packs/day: 1 pack/day for 30.0 years (30.0 ttl pk-yrs) Types: Cigarettes Start date: 08/17/1963 Quit date: 08/17/1993 Years since quittin.0 Smokeless tobacco: Never 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: , 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[facility], 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, 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 Vaping Use Vaping status: Never Used Substance and Sexual Activity Alcohol use: Yes Alcohol/week: 2.0 - 16.0 standard drinks of alcohol Types: 2 Glasses of wine per week Comment: occ Drug use: No Comment: caffeine use: 1 cup of coffee a day Sexual activity: Not Currently Partners: Male control/protection: Other Social Drivers of Health Food Insecurity: No Food Insecurity (01/19/2024) Hunger Vital Sign Worried About Running Out of Food in the Last Year: Never true Ran Out of Food in the Last Year: Never true Transportation Needs: No Transportation Needs (01/19/2024) PRAPARE - Transportation Lack of Transportation (Medical): No Lack of Transportation (Non-Medical): No Intimate Partner Violence: Not At Risk (01/19/2024) Humiliation, Afraid, Rape, and Kick questionnaire Fear of Current or Ex-Partner: No Emotionally Abused: No Physically Abused: No Sexually Abused: No Housing Stability: Low Risk (01/19/2024) Housing Stability Vital Sign Unable to Pay for Housing in the Last Year: No Number of Places Lived in the Last Year: 1 Unstable Housing in the Last Year: No SCREENINGS Steffany Coma Scale Best Eye Response: Spontaneous Best Verbal Response: Oriented Best Motor Response: Follows commands Steffany Coma Scale Score: 15 PHYSICAL EXAM ED Triage Vitals Temp Heart Rate Resp BP 08/26/24 1545 08/26/24 1545 08/26/24 1546 08/26/24 1546 36.7 C (98.1 F) 77 14 (!) 180/132 SpO2 Temp Source Heart Rate Source Patient Position 08/26/24 1546 08/26/24 1545 -- 08/26/24 1546 98 % Oral Sitting BP Location FiO2 (%) 08/26/24 1546 -- Left arm Physical Exam Well-appearing female in no acute distress. Vital signs reviewed and noted hypertension with a blood pressure of 180/132. Lungs are clear to auscultation bilaterally. Patient does have conservation no dyspnea. Speaking in4-5 word sentences but becomes short of breath at the end of it. Her chest wall is nontender to palpation. She is 2+ radial pulses bilaterally. Regular rate and rhythm. Her abdomen is soft and nontender to palpation. She has no lower extremity edema. DIAGNOSTIC RESULTS RADIOLOGY (Per Emergency Physician): Interpretation per the Radiologist below, if available at the time of this note: CTA chest abdomen pelvis angiogram w and/or wo contrast Final Result Addendum (preliminary) 1 of 1 Patient Name: ROLANDO PETERS : 1945 Exam Date/Time: 08/26/2024 17:03 Procedure: CT CHEST ABDOMEN PELVIS ANGIOGRAM W AND/OR WO CONTRAST Ordering Provider: LANDA YASMIN Reason For Exam: ro dissection --------ADDENDUM #1 -------- Addendum issued to include a fifth impression. This finding was described in the body of the report. 5. Single mildly dilated small bowel loop in the left hemiabdomen but without a discrete transition point to suggest obstruction. Findings could be due to ileus or peristalsis. Consider follow-up imaging if warranted. Report Dictated on Electronically Signed By: Deven Mendoza MD Electronically Signed Date/Time: 08/26/2024 6:22 PM EST --------ORIGINAL REPORT -------- CT ANGIOGRAPHY CHEST, ABDOMEN AND PELVIS: CLINICAL INDICATION: Chest and back pain TECHNIQUE: Transaxial sequence was performed through the chest without IV contrast and then again through the chest, abdomen and pelvis during dynamic intravenous infusion of 75 mL of nonionic contrast media, injected at a high flow rate following a adjunct psychology faculty member study. Multiplanar and 3D MIP reconstruction was performed concurrently with independent viewing software. Dose reduction was employed with automated exposure control. COMPARISON: 07/27/2024, 01/19/2024 FINDINGS: Vessels: Diffuse atherosclerotic calcifications are present throughout the thoracoabdominal aorta and its branches Thoracic aorta: No intramural hematoma on the unenhanced images. No aortic dissection or penetrating atherosclerotic ulcer. Conventional aortic arch anatomy. The thoracic aorta is normal in caliber. Abdominal aorta: The abdominal aorta is normal in caliber. No aortic dissection. Common iliac arteries: Patent left common iliac artery with stenosis. There is marked stenosis of the right common iliac artery. Internal iliac arteries: Patent left internal iliac artery. There is marked stenosis versus occlusion of the proximal right internal iliac artery though this appears similar to the prior CT.. External iliac arteries: Patent left external iliac artery. There is marked stenosis of the right external iliac artery Common femoral arteries: Patent Proximal femoral and proximal deep femoral arteries: Patent Celiac axis: Patent. There are significant atherosclerotic calcifications in the splenic artery with areas of stenosis. 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 Inferior mesenteric artery: Patent. Renal arteries: Patent with stenosis of the origins of both renal arteries, greater on the right Lungs: Moderate emphysematous changes. Subsegmental bibasilar atelectasis. There is smooth interlobular septal thickening bilaterally with some scattered groundglass opacities most notable in the lower lobes. Multiple lung nodules are again present, including a 9 mm right lower lobe nodule (series 6 image 162), a cluster of left upper lobe nodules measuring up to 10 mm (image 172 and on enlarged cluster of nodules in the right lower lobe now measuring 2.3 x 2.0 cm (image 216), now more confluent in appearance. Pleural fluid: Moderate right and trace left pleural effusions, unchanged. Heart/Great vessels: Cardiac chambers are normal in size. Coronary artery calcifications are noted. Mediastinum/Jody: Unremarkable. Soft tissues chest wall: Surgical clips in the right breast. Partly visualized left breast implant. Liver: Normal size and contour. No focal lesion. Biliary tree: Normal caliber. The gallbladder is nondistended. Spleen: Normal. Adrenals: Normal. Pancreas: Normal. Kidneys: Symmetric contrast enhancement without hydronephrosis. No focal lesion. Free fluid: None. Retroperitoneum and mesentery: No enlarged lymph nodes. Bowel: There is a focal loop of small bowel which is mildly dilated in the left hemiabdomen. However, no discrete transition point is identified. The remainder of the bowel is normal in caliber. No bowel wall thickening. The appendix is nondistended. Abdominal wall: Normal. Pelvic organs/viscera: No mass identified. Status post hysterectomy. Pelvic lymphadenopathy: None. Osseous structures: Degenerative change of the visualized spine is noted. IMPRESSION: 1. No evidence of acute aortic dissection, penetrating atherosclerotic ulcer or intramural hematoma. 2. Advanced atherosclerotic disease. Redemonstration of marked stenosis versus occlusion of the proximal right internal iliac artery. Numerous other areas of stenosis are present, as detailed above. 3. Multiple lung nodules bilaterally, posterior which are unchanged but with a worsening cluster of nodular densities in the right lower lobe. These are indeterminate but could be due to progressive infectious/inflammatory process. However, recommend either short-term follow-up imaging in three months or tissue sampling or PET/CT as a neoplasm is not excluded. 4. Bilateral pleural effusions, greater on the right, unchanged. Interlobular septal thickening and groundglass opacities related to pulmonary edema. Report Dictated on Electronically Signed By: Deven Mendoza MD Electronically Signed Date/Time: 08/26/2024 5:54 PM EST Final 1. No evidence of acute aortic dissection, penetrating atherosclerotic ulcer or intramural hematoma. 2. Advanced atherosclerotic disease. Redemonstration of marked stenosis versus occlusion of the proximal right internal iliac artery. Numerous other areas of stenosis are present, as detailed above. 3. Multiple lung nodules bilaterally, posterior which are unchanged but with a worsening cluster ofnodular densities in the right lower lobe. These are indeterminate but could be due to progressive infectious/inflammatory process. However, recommend either short-term follow-up imaging in three months or tissue sampling or PET/CT as a neoplasm is not excluded. 4. Bilateral pleural effusions, greater on the right, unchanged. Interlobular septal thickening andgroundglass opacities related to pulmonary edema. Report Dictated on Electronically Signed By: Deven Mendoza MD Electronically Signed Date/Time: 08/26/2024 5:54 PM EST XR chest 1 view Final Result FINDINGS AND IMPRESSION: SUPPORT DEVICES: EKG leads OSSEOUS STRUCTURES: Unremarkable. HEART AND MEDIASTINUM: The cardiomediastinal silhouette appears unchanged from the prior exam. LUNGS AND PLEURA: Pulmonary venous congestion with interstitial edema. Unchanged nodular density inthe left midlung. Small right pleural effusion and left basilar atelectasis. Report Dictated on Electronically Signed By: Deven Mendoza MD Electronically Signed Date/Time: 08/26/2024 4:36 PM EST LABS: Labs Reviewed CBC WITH AUTO DIFFERENTIAL - Abnormal Result Value Auto WBC 7.9 RBC 3.42 (*) Hemoglobin 9.9 (*) Hematocrit 31.2 (*) MCV 91.2 MCH 28.9 MCHC 31.7 RDW 14.6 Platelets 235 MPV 9.7 COMPREHENSIVE METABOLIC PANEL - Abnormal SODIUM 135 (*) POTASSIUM 4.7 CHLORIDE 106 CARBON DIOXIDE 20 (*) ANION GAP 9 UREA NITROGEN 27 (*) CREATININE 1.02 GLUCOSE 171 (*) CALCIUM 8.7 (*) AST (SGOT) 36 (*) ALT 35 (*) ALKALINE PHOSPHATASE 57 ALBUMIN 3.6 BILIRUBIN, TOTAL 0.6 TOTAL PROTEIN 6.6 eGFR 56.4 (*) HIGH SENSITIVITY TROPONIN, SERIAL BASELINE - Abnormal Troponin HS, Serial Baseline 22 (*) NT PRO BNP - Abnormal NT PRO BNP 6,947 (*) HIGH SENSITIVITY TROPONIN, SERIAL, SECOND TEST - Abnormal Troponin HS, Serial Second 19 (*) Troponin HS Delta, Baseline to Second -3 MANUAL DIFFERENTIAL (CELLAVISION) - Abnormal RBC Morphology abnormal Poikilocytes Moderate (*) Ovalocytes Moderate (*) Horatio Cells Slight (*) Neutrophils % 96 (*) Lymphocytes % 3 (*) Monocytes % 1 (*) Absolute Neutrophil Count 7.6 (*) Lymphocytes Absolute 0.2 (*) Monocytes Absolute 0.1 Neutrophils Manual 94 Lymphocytes Manual 3 Monocytes Manual 1 Eosinophils Manual Basophils Manual Bands Manual Metamyelocytes Manual Myelocytes Manual Promyelocytes Manual Blasts Manual Atypical Lymphocytes Manual Unclassified Cells, Manual SARS-COV-2, FLU A/B, AND RSV COMBO - Normal SARS-CoV-2 Not Detected Respiratory Syncytial Virus Not Detected Influenza A Not Detected Influenza B Not Detected Narrative: Methodology: real-time, RT-PCR The SARS-CoV-2, Flu A/B, and RSV Combo assay is intended for in vitro diagnostic use under the FDA Emergency Use Authorization (EUA). This test has not been FDA cleared or approved. In compliance with this authorization, please visit www.fda.gov/media/022415/download or www.fda.gov/media/205390/download to access the applicable information sheets. All other labs were within normal range or not returned as of this dictation. EKG: EKG at 1546 interpreted by me: Sinus rhythm with rate of 73. Normal axis. Normal intervals. No ST segment elevations or depressions. EMERGENCY DEPARTMENT COURSE and DIFFERENTIAL DIAGNOSIS/MDM: Vitals: Vitals: 08/26/24 1545 08/26/24 1546 08/26/24 1807 08/26/24 1930 BP: (!) 180/132 (!) 191/72 (!) 182/60 BP Location: Left arm Left arm Patient Position: Sitting Sitting Pulse: 77 79 83 70 Resp: 14 20 14 Temp: 36.7 C (98.1 F) TempSrc: Oral SpO2: 98% 97% 95% Weight: 63.5 kg (140 lb) Height: 1.702 m (5' 7) Medications furosemide (Lasix) injection 20 mg (20 mg IntraVENous Given 08/26/24 180) iopamidol (Isovue-370) 76 % injection 75 mL (75 mL IntraVENous Given 08/26/24 172) labetalol (Normodyne,Trandate) injection 20 mg (20 mg IntraVENous Given 08/26/24 190) Medical Decision Making 79-year-old female presenting to the emergency department today for chest pain and shortness of breath. She is afebrile hemodynamically stable. Had chest pain radiating into the middle of her back with shortness of breath this morning. The chest pain has since resolved but she does still have exertional and conversational dyspnea. Concern for ACS, aortic dissection, less likely PE as she is not tachycardic or hypoxic, viral pneumonia or bacterial pneumonia among others. Broad workup initiated including EKG, CBC, CMP, troponin, BNP, viral testing and a CTA of her chestand pelvis to rule out acute dissection. I reviewed her CTA notes any signs of acute dissection. She does have some stenosis but nothing concerning at this time. Her troponin is mildly elevated and her delta troponin is downtrending. Her BNP is elevated at 6000. The CTA does show signs of pulmonary edema as well as a pleural effusion withsome lung nodules. Patient knows of these lung nodules. Her blood pressure Getting more and more elevated. I did give her a dose of labetalol as well as IVLasix. I think that this is exertional dyspnea secondary to her heart failure that she has. Patientwill be admitted for diuresis and further care. She is agreeable this plan. Admitted in stable condition. Diagnostic tests considered but not performed: External records reviewed: Diagnostics interpreted by me: CT chest Discussions with other clinicians: Dr. Garza, hospitalist Chronic conditions impacting care: Social determinants of health affecting care: ED Medications managed: Medications furosemide (Lasix) injection 20 mg (20 mg IntraVENous Given 08/26/24 1807) iopamidol (Isovue-370) 76 % injection 75 mL (75 mL IntraVENous Given 08/26/24 1725) labetalol (Normodyne,Trandate) injection 20 mg (20 mg IntraVENous Given 08/26/24 1909) Prescription drugs considered: I Leticia Landa MD am the saturator tender of record. FINAL IMPRESSION 1. Exertional shortness of breath DISPOSITION Admit 08/26/2024 07:42:01 PM PATIENT REFERRED TO: No follow-up provider specified. DISCHARGE MEDICATIONS: New Prescriptions No medications on file (Comment: Please note this report has been produced using speech recognition software and may contain errors related to that system including errors in grammar, punctuation, and spelling, as well as words and phrases that may be inappropriate. If there are any questions or concerns please feel freeto contact the dictating provider for clarification.) Lteicia Landa MD (electronically signed) Emergency Medicine Provider Leticia Landa MD 08/26/241943 NEURONIX [id number] Evaluation + Plan note* Assessment & Plan Note - Celia Al DO - 08/26/2024 2:21 PM ESTAssociated Problem(s): Stage 3a chronic kidney disease (Multi) stable [facility] Work Phone: 1(654) 822-227901-10-2025 Evaluation + Plan note* Assessment & Plan Note - Celia Al DO - 08/26/2024 2:21 PM ESTAssociated Problem(s): Chronic systolic heart failure stable [facility] Work Phone: 1(687) 313-948701-10-2025 Evaluation + Plan note* Assessment & Plan Note - Celia Al DO - 08/26/2024 2:21 PM ESTAssociated Problem(s): 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, uns pecified estrogen receptor status stable [facility] Work Phone: 1(278) 949-414001-10-2025 Miscellaneous Notes* Assessment & Plan Note - Celia Al DO - 08/26/2024 2:21 PM ESTAssociated Problem(s): Stage 3a chronic kidney disease (Multi) stable * Assessment & Plan Note - Celia Al DO - 08/26/2024 2:21 PM ESTAssociated Problem(s): Chronic systolic heart failure stable * Assessment & Plan Note - Celia Al DO - 08/26/2024 2:21 PM ESTAssociated Problem(s): 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, unspecified estrogen receptor status stable * Assessment & Plan Note - Celia Al DO - 08/26/2024 2:20 PM ESTAssociated Problem(s): 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 * Assessment & Plan Note - Celia Al DO - 08/26/2024 2:20 PM ESTAssociated Problem(s): Persistent atrial fibrillation (Multi) Patient currently on COVID carvedilol and Eliquis Stable [facility]: 1(168) 379-565501-10-2025 Evaluation + Plan note* Assessment & Plan Note - Celia Al DO - 08/26/2024 2:20 PM ESTAssociated Problem(s): 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 female who presents for To discuss hair loss. and Shortnessof Breath (X 4:00 am ). HPI Patient has had sob/ chest discomfort since 400am. She did have a busy day yesterday. She was in a hurry and she had to stop several times down the nava to get to the offices. She also reports that at 4 AM she had some back pain that was radiating into her chest. Denies any fever chills denies any nausea vomiting dry constipation Review of Systems Constitutional: Negative for activity change, appetite change, fatigue and fever. HENT: Negative for congestion. Respiratory: Positive for chest tightness and shortness of breath. Negative for cough, choking and wheezing. Cardiovascular: Negative for chest pain, palpitations and leg swelling. Musculoskeletal: Negative for arthralgias, back pain and gait problem. Skin: Negative for color change and pallor. Neurological: Negative for dizziness, facial asymmetry, light-headedness and headaches. Objective BP 138/64 (BP Location: Left arm, Patient Position: Sitting) Pulse 76 Temp 36.7 C (98 F) [id number]% BSA There is no height or weight on file to calculate BSA. Physical Exam Constitutional: General: She is not in acute distress. Appearance: Normal appearance. She is not toxic-appearing. HENT: Head: Normocephalic. Right Ear: Tympanic membrane, ear canal and external ear normal. Left Ear: Tympanic membrane, ear canal and external ear normal. Nose: Nose normal. Mouth/Throat: Pharynx: Oropharynx is clear. Eyes: Conjunctiva/sclera: Conjunctivae normal. Pupils: Pupils are equal, round, and reactive to light. Cardiovascular: Rate and Rhythm: Normal rate and regular rhythm. Pulses: Normal pulses. Heart sounds: Normal heart sounds. Pulmonary: Effort: No respiratory distress. Breath sounds: No wheezing, rhonchi or rales. Abdominal: General: Bowel sounds are normal. There is no distension. Palpations: Abdomen is soft. Tenderness: There is no abdominal tenderness. Musculoskeletal: General: No swelling or tenderness. Cervical back: No tenderness. Skin: Findings: No lesion or rash. Neurological: General: No focal deficit present. Mental Status: She is alert and oriented to person, place, and time. Mental status is at baseline. Gait: Gait normal. Psychiatric: Mood and Affect: Mood normal. Behavior: Behavior normal. Thought Content: Thought content normal. Judgment: Judgment normal. Lab on 08/02/2024 Component Date Value Ref Range Status Glucose 08/02/2024 103 (H) 74 - 99 mg/dL Final Sodium 08/02/2024 137 136 - 145 mmol/L Final Potassium 08/02/2024 4.9 3.5 - 5.3 mmol/L Final Chloride 08/02/2024 106 98 - 107 mmol/L Final Bicarbonate 08/02/2024 22 21 - 32 mmol/L Final Anion Gap 08/02/2024 14 10 - 20 mmol/L Final Urea Nitrogen 08/02/2024 15 6 - 23 mg/dL Final Creatinine 08/02/2024 1.01 0.50 - 1.05 mg/dL Final eGFR 08/02/2024 57 (L) >60 mL/min/1.73m*2 Final Calculations of estimated GFR are performed using the 2020 CKD-EPI Study Refit equation without therace variable for the IDMS-Traceable creatinine methods. https://jasn.asnjournals.org/content//ASN.6897985046 Calcium 08/02/2024 8.9 8.6 - 10.6 mg/dL Final Albumin 08/02/2024 4.0 3.4 - 5.0 g/dL Final Alkaline Phosphatase 08/02/2024 46 33 - 136 U/L Final Total Protein 08/02/2024 6.5 6.4 - 8.2 g/dL Final AST 08/02/2024 26 9 - 39 U/L Final Bilirubin, Total 08/02/2024 0.5 0.0 - 1.2 mg/dL Final ALT 08/02/2024 24 7 - 45 U/L Final Patients treated with Sulfasalazine may generate falsely decreased results for ALT. Thyroid Stimulating Hormone 08/02/2024 1.42 0.44 - 3.98 mIU/L Final Magnesium 08/02/2024 1.99 1.60 - 2.40 mg/dL Final Phosphorus 08/02/2024 4.8 2.5 - 4.9 mg/dL Final The performance characteristics of phosphorus testing in heparinized plasma have been validated by the individual laboratory site where testing is performed. Testing on heparinized plasma is not approved by the FDA; however, such approval is not necessary. Vitamin B12 08/02/2024 207 (L) 211 - 911 pg/mL Final Folate, Serum 08/02/2024 23.5 >5.0 ng/mL Final Methylmalonic Acid, S 08/02/2024 0.25 0.00 - 0.40 umol/L Final INTERPRETIVE INFORMATION: MMA Serum/Plasma, Vitamin B12 Status This test was developed and its performance characteristics determined by [facility]. It has not been cleared or approved by the US Food and Drug Administration. This test was performed in a CLIA certified laboratory and is intended for clinical purposes. Performed By: [facility] [address] [place] [id number] Needle Punch Operator: Rosalee Upton MD, PhD CLIA Number: [id number] Iron 08/02/2024 45 35 - 150 ug/dL Final UIBC 08/02/2024 354 110 - 370 ug/dL Final TIBC 08/02/2024 399 240 - 445 ug/dL Final % Saturation 08/02/2024 11 (L) 25 - 45 % Final Ferritin 08/02/2024 71 8 - 150 ng/mL Final Lab on 06/13/2024 Component Date Value Ref Range Status Albumin, Urine Random 06/13/2024 1,587.3 Not established mg/L Final Creatinine, Urine Random 06/13/2024 67.3 20.0 - 320.0 mg/dL Final Albumin/Creatinine Ratio 06/13/2024 2,358.5 (H) <30.0 ug/mg Creat Final Glucose 06/13/2024 137 (H) 74 - 99 mg/dL Final Sodium 06/13/2024 137 136 - 145 mmol/L Final Potassium 06/13/2024 4.6 3.5 - 5.3 mmol/L Final Chloride 06/13/2024 103 98 - 107 mmol/L Final Bicarbonate 06/13/2024 22 21 - 32 mmol/L Final Anion Gap 06/13/2024 17 10 - 20 mmol/L Final Urea Nitrogen 06/13/2024 16 6 - 23 mg/dL Final Creatinine 06/13/2024 1.03 0.50 - 1.05 mg/dL Final eGFR 06/13/2024 56 (L) >60 mL/min/1.73m*2 Final Calculations of estimated GFR are performed using the 2020 CKD-EPI Study Refit equation without therace variable for the IDMS-Traceable creatinine methods. https://jasn.asnjournals.org/content/early//ASN.4256072126 Calcium 06/13/2024 8.7 8.6 - 10.6 mg/dL Final Albumin 06/13/2024 4.0 3.4 - 5.0 g/dL Final Alkaline Phosphatase 06/13/2024 49 33 - 136 U/L Final Total Protein 06/13/2024 6.2 (L) 6.4 - 8.2 g/dL Final AST 06/13/2024 23 9 - 39 U/L Final Bilirubin, Total 06/13/2024 0.5 0.0 - 1.2 mg/dL Final ALT 06/13/2024 36 7 - 45 U/L Final Patients treated with Sulfasalazine may generate falsely decreased results for ALT. Hemoglobin A1C 06/13/2024 5.5 See comment % Final Estimated Average Glucose 06/13/2024 111 Not Established mg/dL Final WBC 06/13/2024 5.3 4.4 - 11.3 x10*3/uL Final nRBC 06/13/2024 0.0 0.0 - 0.0 /100 WBCs Final RBC 06/13/2024 3.35 (L) 4.00 - 5.20 x10*6/uL Final Hemoglobin 06/13/2024 9.7 (L) 12.0 - 16.0 g/dL Final Hematocrit 06/13/2024 30.8 (L) 36.0 - 46.0 % Final MCV 06/13/2024 92 80 - 100 fL Final MCH 06/13/2024 29.0 26.0 - 34.0 pg Final MCHC 06/13/2024 31.5 (L) 32.0 - 36.0 g/dL Final RDW 06/13/2024 13.0 11.5 - 14.5 % Final Platelets 06/13/2024 204 150 - 450 x10*3/uL Final Neutrophils % 06/13/2024 74.1 40.0 - 80.0 % Final Immature Granulocytes %, Automated 06/13/2024 0.4 0.0 - 0.9 % Final Immature Granulocyte Count (IG) includes promyelocytes, myelocytes and metamyelocytes but does not include bands. Percent differential counts (%) should be interpreted in the context of the absolute cell counts (cells/UL). Lymphocytes % 06/13/2024 14.1 13.0 - 44.0 % Final Monocytes % 06/13/2024 7.7 2.0 - 10.0 % Final Eosinophils % 06/13/2024 2.4 0.0 - 6.0 % Final Basophils % 06/13/2024 1.3 0.0 - 2.0 % Final Neutrophils Absolute 06/13/2024 3.93 1.60 - 5.50 x10*3/uL Final Percent differential counts (%) should be interpreted in the context of the absolute cell counts (cells/uL). Immature Granulocytes Absolute, Au* 06/13/2024 0.02 0.00 - 0.50 x10*3/uL Final Lymphocytes Absolute 06/13/2024 0.75 (L) 0.80 - 3.00 x10*3/uL Final Monocytes Absolute 06/13/2024 0.41 0.05 - 0.80 x10*3/uL Final Eosinophils Absolute 06/13/2024 0.13 0.00 - 0.40 x10*3/uL Final Basophils Absolute 06/13/2024 0.07 0.00 - 0.10 x10*3/uL Final WERO 06/13/2024 Negative Negative Final The Antinuclear Antibody (WERO) test was performed using indirect immunofluorescence assay with HEp-2 cells slide. Rheumatoid Factor 06/13/2024 <10 0 - 15 IU/mL Final Citrulline Antibody, IgG 06/13/2024 <1 <3 U/mL Final NEGATIVE < 3 U/ML POSITIVE >=3 U/ML ANCA IFA Titer 06/13/2024 <1:20 <1:20 Final ANCA IFA Pattern 06/13/2024 None Detected None Detected Final INTERPRETIVE INFORMATION: ANCA IFA Pattern Neutrophil Cytoplasmic Antibodies (C-ANCA = granular cytoplasmic staining, P-ANCA = perinuclear staining) are found in the serum of over 90 percent of patients with certain necrotizing systemic vasculitides, and usually in less than 5 percent of patients with collagen vascular disease or arthritis. Performed By: [facility] [address] [place] [id number] Needle Punch Operator: Rosalee Upton MD, PhD CLIA Number: [id number] SSA-52 (Ro52) (YOCASTA) Antibody, IgG 06/13/2024 2 0 - 40 AU/mL Final INTERPRETIVE INFORMATION: SSA-52 (Ro52) (YOCASTA) Antibody, IgG 29 AU/mL or Less ............. Negative 30 - 40 AU/mL ................ Equivocal 41 AU/mL or Greater .......... Positive SSA-52 (Ro52) and/or SSA-60 (Ro60) antibodies are associated with a diagnosis of Sjogren syndrome, systemic lupus erythematosus (SLE), and systemic sclerosis. SSA-52 antibody overlaps significantly with the major SSc-related antibodies. SSA-52 (Ro52) antibody occurs frequently in patients with inflammatory myopathies, often in the presence of interstitial lung disease. SSA-60 (Ro60) (YOCASTA) Antibody, IgG 06/13/2024 0 0 - 40 AU/mL Final REFERENCE INTERVAL: SSA-60 (Ro60) (YOCASTA) Antibody, IgG 29 AU/mL or Less ............. Negative 30 - 40 AU/mL ................ Equivocal 41 AU/mL or Greater .......... Positive Shannon/[employer] OPERATOR (YOCASTA) Ab, IgG 06/13/2024 2 0 - 19 Units Final INTERPRETIVE INFORMATION: Shannon/CUFF TURNER MACHINE OPERATOR (YOCASTA) Antibody, IgG 19 Units or Less ............. Negative 20 to 39 Units ............... Weak Positive 40 to 80 Units ............... Moderate Positive 81 Units or greater .......... Strong Positive Shannon/CUFF TURNER MACHINE OPERATOR antibodies are frequently seen in patients with mixed connective tissue disease (MCTD) and are also associated with other systemic autoimmune rheumatic diseases (SARDs) such as systemic lupus erythematosus (SLE), systemic sclerosis, and myositis. Antibodies targeting the Shannon/CUFF TURNER MACHINE OPERATOR antigenic complex also recognize Shannon antigens, therefore, the Shannon antibody response must be considered when interpreting these results. Neelima-1 (Histidyl-tRNA Synthetase) Ab* 06/13/2024 1 0 - 40 AU/mL Final INTERPRETIVE INFORMATION: Neelima-1 Antibody, IgG 29 AU/mL or less.........Negative 30-40 AU/mL..............Equivocal 41 AU/mL or greater......Positive Presence of Neelima-1 (antihistidyl transfer RNA [t-RNA] synthetase) antibody is associated with polymyositis and may also be seen in patients with dermatomyositis. Neelima-1 antibody is associated with pulmonary involvement (interstitial lung disease), Raynaud phenomenon, arthritis, and motorboat mechanic helper's hands (implicated in antisynthetase syndrome). PL-12 (alanyl-tRNA synthetase) Ant* 06/13/[address]-7 (threonyl-tRNA synthetase) An* 06/13/2024 Negative Negative Final EJ (glycyl-tRNA synthetase) Antibo* 06/13/2024 Negative Negative Final OJ (isoleucyl-tRNA synthetase) Ant* 06/13/2024 Negative Negative Final SRP (Signal Recognition Particle) * 06/13/2024 Negative Negative Final Ku Antibody 06/13/2024 Negative Negative Final PM/Scl 100 Antibody, IgG 06/13/2024 Negative Negative Final INTERPRETIVE INFORMATION: PM/Scl-100 Antibody, IgG by Immunoblot The presence of PM/Scl-100 IgG antibody along with a positive WERO IFA nucleolar pattern is associated with connective tissue diseases such as polymyositis (PM), dermatomyositis (DM), systemic sclerosis (SSc), and polymyositis/systemic sclerosis overlap syndrome. The clinical relevance of PM/Scl-100 IgG antibody with a negative WERO IFA nucleolar pattern is unknown. PM/Scl-100 is the main target epitope of the PM/Scl complex, although antibodies to other targets not detected by this assay may occur. This test was developed and its performance characteristics determined by [facility]. It has not been cleared or approved by the [place] Food and Drug Administration. This test was performed in a CLIA certified laboratory and is intended for clinical purposes. Fibrillarin (U3 CUFF TURNER MACHINE OPERATOR) Ab, IgG 06/13/2024 Negative Negative Final Comment: Interpretive Information: Fibrillarin (U3 CUFF TURNER MACHINE OPERATOR) Antibody, IgG The presence of fibrillarin (U3-CUFF TURNER MACHINE OPERATOR) IgG antibodies in association with an WERO IFA nucleolar pattern is suggestive of systemic sclerosis (SSc). In SSc, these antibodies are associated with distinct clinical features, such as younger age at disease onset, frequent internal organ involvement (pulmonary hypertension, myositis and renal disease). Fibrillarin antibodies are detected more frequently in patients with SSc compared to other ethnic groups. Strong correlation with WERO IFA results is recommended. In a multi-ethnic cohort of SSc patients (n=98), U3-CUFF TURNER MACHINE OPERATOR antibodies detected by immunoblot had an agreement of 98.9 percent with the gold standard immunoprecipitation (IP) assay. Approximately 71 percent (5/7) of the borderline U3-CUFF TURNER MACHINE OPERATOR results with WERO nucleolar pattern in this cohort were IP negative. This test was developed and its performance characteristics determined by [facility]. It has not been cleared or approved by the US Food and Drug Administration. This test was performed in a CLIA certified laboratory and is intended for clinical purposes. Performed By: [facility] [address] [place] [id number] Needle Punch Operator: Rosalee Upton MD, PhD CLIA Number: [id number] Mi-2 (nuclear helicase protein) An* 06/13/2024 Negative Negative Final P155/140 Antibody 06/13/2024 Negative Negative Final TIF-1 gamma (155 kDa) Ab 06/13/2024 Negative Negative Final SAE1 (SUMO activating enzyme) Ab 06/13/2024 Negative Negative Final MDA5 (CADM-140) Ab 06/13/2024 Negative Negative Final NXP2 (Nuclear matrix protein-2) Ab 06/13/2024 Negative Negative Final Myositis Panel Interpretive Data 06/13/2024 See Note Final Comment: INTERPRETIVE INFORMATION: Extended Myositis Panel If present, myositis-specific antibodies (MSA) are specific for myositis, and may be useful in establishing diagnosis as well as prognosis. MSAs are generally regarded as mutually exclusive with rare exceptions; the occurrence of two or more MSAs should be carefully evaluated in the context of patient's clinical presentation. Myositis-associated antibodies (MAA) may be found in patients with CTD including overlap syndromes, and are generally not specific for myositis. The following table will help in identifying the association of any antibodies found as either MSAs or Willa. Antibody Specificity . . . . . . . . . . . . MSA . . . . MAA SSA 52 (Ro) (YOCASTA) Antibody IgG . . . . . . . . . . . . . X SSA 60 (Ro) (YOCASTA) Antibody IgG . . . . . . . . . . . . . X Shannon/CUFF TURNER MACHINE OPERATOR (YOCASTA) Ab, IgG . . . . . . . . . . . . . . . . X Neelima-1 (histidyl-tRNA synthetase) Ab, IgG . . X PL-12 (alanyl-tRNA synthetase) Antibody . . X PL-7 (threonyl-tRNA synthetase) Antibody . . X EJ (glycyl-tRNA synthetase) Antibody . . . . X OJ (isoleucyl-tRNA synthetase) Antibody . . X SRP (Signal Recognition Particle) Ab . . . . X Ku Antibody . . . . . . . . . . . . . . . . . . . . . . X PM/SCL 100 Antibody, IgG . . . . . . . . . . . . . . . . X Fibrillarin (U3 CUFF TURNER MACHINE OPERATOR) Ab, IgG . . . . . . . . . . . . . . X Mi-2 (nuclear helicase protein) Antibody . . X P155/140 Antibody . . . . . . . . . . . . . X TIF-1 gamma (155 kDa) Ab . . . . . . . . . . X SAE1 (SUMO activating enzyme) Ab . . . . . . X MDA5 (CADM-140) Ab . . . . . . . . . . . . X NXP2 (Nuclear matrix proten-2)Ab . . . . . . X This test was developed and its performance characteristics determined by [facility]. It has not been cleared or approved by the US Food and Drug Administration. This test was performed in a CLIA certified laboratory and is intended for clinical purposes. Aspergillus fumigatus #1 Ab, Preci* 06/13/2024 None Detected None Detected Final Aspergillus fumigatus #6 Ab, Preci* 06/13/2024 None Detected None Detected Final Aureobasidium pullulans Ab, Precip* 06/13/2024 None Detected None Detected Final [place] Serum Ab, Precipitin 06/13/2024 None Detected None Detected Final Micropolyspora Faeni Ab, Precipitin 06/13/2024 None Detected None Detected Final Testing includes antibodies directed at Aureobasidium pullulans, Aspergillus fumigatus #1, Aspergillus fumigatus #6, Micropolyspora faeni, and [place] Serum. Performed By: [facility] [address] [place] [id number] Needle Punch Operator: Rosalee Upton MD, PhD CLIA Number: [id number] Anti-SSA 06/13/2024 <0.2 <1.0 AI Final < 1.0 = NEGATIVE >=1.0 = POSITIVE Anti-SSB 06/13/2024 <0.2 <1.0 AI Final < 1.0 = NEGATIVE >=1.0 = POSITIVE Lab on 05/02/2024 Component Date Value Ref Range Status Glucose 05/02/2024 117 (H) 74 - 99 mg/dL Final Sodium 05/02/2024 139 136 - 145 mmol/L Final Potassium 05/02/2024 4.4 3.5 - 5.3 mmol/L Final Chloride 05/02/2024 105 98 - 107 mmol/L Final Bicarbonate 05/02/2024 24 21 - 32 mmol/L Final Anion Gap 05/02/2024 14 10 - 20 mmol/L Final Urea Nitrogen 05/02/2024 20 6 - 23 mg/dL Final Creatinine 05/02/2024 1.13 (H) 0.50 - 1.05 mg/dL Final eGFR 05/02/2024 50 (L) >60 mL/min/1.73m*2 Final Calculations of estimated GFR are performed using the 2020 CKD-EPI Study Refit equation without therace variable for the IDMS-Traceable creatinine methods. https://jasn.asnjournals.org/content/early//ASN.9571173153 Calcium 05/02/2024 8.8 8.6 - 10.6 mg/dL Final Phosphorus 05/02/2024 4.2 2.5 - 4.9 mg/dL Final The performance characteristics of phosphorus testing in heparinized plasma have been validated by the individual laboratory site where testing is performed. Testing on heparinized plasma is not approved by the FDA; however, such approval is not necessary. Albumin 05/02/2024 3.8 3.4 - 5.0 g/dL Final Lab on 04/19/2024 Component Date Value Ref Range Status Glucose 04/19/2024 91 74 - 99 mg/dL Final Sodium 04/19/2024 137 136 - 145 mmol/L Final Potassium 04/19/2024 4.9 3.5 - 5.3 mmol/L Final Chloride 04/19/2024 104 98 - 107 mmol/L Final Bicarbonate 04/19/2024 22 21 - 32 mmol/L Final Anion Gap 04/19/2024 16 10 - 20 mmol/L Final Urea Nitrogen 04/19/2024 14 6 - 23 mg/dL Final Creatinine 04/19/2024 1.08 (H) 0.50 - 1.05 mg/dL Final eGFR 04/19/2024 53 (L) >60 mL/min/1.73m*2 Final Calculations of estimated GFR are performed using the 2020 CKD-EPI Study Refit equation without therace variable for the IDMS-Traceable creatinine methods. https://jasn.asnjournals.org/content/early//ASN.0579788324 Calcium 04/19/2024 8.7 8.6 - 10.6 mg/dL Final Albumin 04/19/2024 3.9 3.4 - 5.0 g/dL Final Alkaline Phosphatase 04/19/2024 53 33 - 136 U/L Final Total Protein 04/19/2024 6.2 (L) 6.4 - 8.2 g/dL Final AST 04/19/2024 33 9 - 39 U/L Final Bilirubin, Total 04/19/2024 0.4 0.0 - 1.2 mg/dL Final ALT 04/19/2024 48 (H) 7 - 45 U/L Final Patients treated with Sulfasalazine may generate falsely decreased results for ALT. WBC 04/19/2024 7.0 4.4 - 11.3 x10*3/uL Final nRBC 04/19/2024 0.0 0.0 - 0.0 /100 WBCs Final RBC 04/19/2024 3.12 (L) 4.00 - 5.20 x10*6/uL Final Hemoglobin 04/19/2024 9.4 (L) 12.0 - 16.0 g/dL Final Hematocrit 04/19/2024 31.6 (L) 36.0 - 46.0 % Final MCV 04/19/2024 101 (H) 80 - 100 fL Final MCH 04/19/2024 30.1 26.0 - 34.0 pg Final MCHC 04/19/2024 29.7 (L) 32.0 - 36.0 g/dL Final RDW 04/19/2024 13.6 11.5 - 14.5 % Final Platelets 04/19/2024 241 150 - 450 x10*3/uL Final Lab on 03/31/2024 Component Date Value Ref Range Status Glucose 03/31/2024 148 (H) 74 - 99 mg/dL Final Sodium 03/31/2024 137 136 - 145 mmol/L Final Potassium 03/31/2024 4.8 3.5 - 5.3 mmol/L Final Chloride 03/31/2024 106 98 - 107 mmol/L Final Bicarbonate 03/31/2024 20 (L) 21 - 32 mmol/L Final Anion Gap 03/31/2024 16 10 - 20 mmol/L Final Urea Nitrogen 03/31/2024 20 6 - 23 mg/dL Final Creatinine 03/31/2024 1.37 (H) 0.50 - 1.05 mg/dL Final eGFR 03/31/2024 40 (L) >60 mL/min/1.73m*2 Final Calculations of estimated GFR are performed using the 2020 CKD-EPI Study Refit equation without therace variable for the IDMS-Traceable creatinine methods. https://jasn.asnjournals.org/content/early//ASN.5107116824 Calcium 03/31/2024 9.0 8.6 - 10.6 mg/dL Final Albumin 03/31/2024 3.6 3.4 - 5.0 g/dL Final Alkaline Phosphatase 03/31/2024 44 33 - 136 U/L Final Total Protein 03/31/2024 5.6 (L) 6.4 - 8.2 g/dL Final AST 03/31/2024 21 9 - 39 U/L Final Bilirubin, Total 03/31/2024 0.3 0.0 - 1.2 mg/dL Final ALT 03/31/2024 26 7 - 45 U/L Final Patients treated with Sulfasalazine may generate falsely decreased results for ALT. Lab on 03/10/2024 Component Date Value Ref Range Status Glucose 03/10/2024 90 74 - 99 mg/dL Final Sodium 03/10/2024 139 136 - 145 mmol/L Final Potassium 03/10/2024 4.5 3.5 - 5.3 mmol/L Final Chloride 03/10/2024 102 98 - 107 mmol/L Final Bicarbonate 03/10/2024 23 21 - 32 mmol/L Final Anion Gap 03/10/2024 19 10 - 20 mmol/L Final Urea Nitrogen 03/10/2024 28 (H) 6 - 23 mg/dL Final Creatinine 03/10/2024 1.27 (H) 0.50 - 1.05 mg/dL Final eGFR 03/10/2024 43 (L) >60 mL/min/1.73m*2 Final Calculations of estimated GFR are performed using the 2020 CKD-EPI Study Refit equation without therace variable for the IDMS-Traceable creatinine methods. https://jasn.asnjournals.org/content/earlyASN.8015501631 Calcium 03/10/2024 9.3 8.6 - 10.6 mg/dL Final Albumin 03/10/2024 3.9 3.4 - 5.0 g/dL Final Alkaline Phosphatase 03/10/2024 68 33 - 136 U/L Final Total Protein 03/10/2024 6.0 (L) 6.4 - 8.2 g/dL Final AST 03/10/2024 35 9 - 39 U/L Final Bilirubin, Total 03/10/2024 0.4 0.0 - 1.2 mg/dL Final ALT 03/10/2024 198 (H) 7 - 45 U/L Final Patients treated with Sulfasalazine may generate falsely decreased results for ALT. Lab on 03/07/2024 Component Date Value Ref Range Status Glucose 03/07/2024 135 (H) 74 - 99 mg/dL Final Sodium 03/07/2024 136 136 - 145 mmol/L Final Potassium 03/07/2024 4.8 3.5 - 5.3 mmol/L Final Chloride 03/07/2024 102 98 - 107 mmol/L Final Bicarbonate 03/07/2024 24 21 - 32 mmol/L Final Anion Gap 03/07/2024 15 10 - 20 mmol/L Final Urea Nitrogen 03/07/2024 28 (H) 6 - 23 mg/dL Final Creatinine 03/07/2024 1.24 (H) 0.50 - 1.05 mg/dL Final eGFR 03/07/2024 45 (L) >60 mL/min/1.73m*2 Final Calculations of estimated GFR are performed using the 2020 CKD-EPI Study Refit equation without therace variable for the IDMS-Traceable creatinine methods. https://jasn.asnjournals.org/content/earlyASN.3988499515 Calcium 03/07/2024 9.3 8.6 - 10.6 mg/dL Final Albumin 03/07/2024 3.6 3.4 - 5.0 g/dL Final Alkaline Phosphatase 03/07/2024 74 33 - 136 U/L Final Total Protein 03/07/2024 5.7 (L) 6.4 - 8.2 g/dL Final AST 03/07/2024 28 9 - 39 U/L Final Bilirubin, Total 03/07/2024 0.5 0.0 - 1.2 mg/dL Final ALT 03/07/2024 389 (H) 7 - 45 U/L Final Patients treated with Sulfasalazine may generate falsely decreased results for ALT. Albumin, Urine Random 03/07/2024 692.9 Not established mg/L Final Creatinine, Urine Random 03/07/2024 49.1 20.0 - 320.0 mg/dL Final Albumin/Creatinine Ratio 03/07/2024 1,411.2 (H) <30.0 ug/mg Creat Final Total Protein 03/07/2024 5.7 (L) 6.4 - 8.2 g/dL Final Albumin 03/07/2024 3.4 3.4 - 5.0 g/dL Final Alpha 1 Globulin 03/07/2024 0.3 0.2 - 0.6 g/dL Final Alpha 2 Globulin 03/07/2024 0.8 0.4 - 1.1 g/dL Final Beta Globulin 03/07/2024 0.6 0.5 - 1.2 g/dL Final Gamma 03/07/2024 0.6 0.5 - 1.4 g/dL Final Protein Electrophoresis Comment 03/07/2024 Normal. Final Immunofixation Comment 03/07/2024 No monoclonal protein detected by immunofixation. Final Path Review - Serum Protein Electr* 03/07/2024 Reviewed and approved by AGUSTIN STERLING on 03/09/24 at 8:24 PM. Final Path Review - Serum Immunofixation 03/07/2024 Reviewed and approved by AGUSTIN STERLING on 03/09/24 at8:24 PM. Final Total Protein, Urine Random 03/07/2024 99 (H) 5 - 25 mg/dL Final Albumin % 03/07/2024 84.5 % Final Alpha 1 Globulin % 03/07/2024 1.9 % Final Alpha 2 Globulin % 03/07/2024 3.6 % Final Beta Globulin % 03/07/2024 5.6 % Final Gamma Globulin % 03/07/2024 4.4 % Final Urine Electrophoresis Comment 03/07/2024 Marked proteinuria. No monoclonal protein detected. Final Path Review-Urine Protein Electrop* 03/07/2024 Reviewed and approved by AGUSTIN STERLING on 03/09/24 at 7:44 PM. Final Phosphorus 03/07/2024 4.1 2.5 - 4.9 mg/dL Final The performance characteristics of phosphorus testing in heparinized plasma have been validated by the individual laboratory site where testing is performed. Testing on heparinized plasma is not approved by the FDA; however, such approval is not necessary. Lab on 02/01/2024 Component Date Value Ref Range Status BNP 02/01/2024 700 (H) 0 - 99 pg/mL Final Glucose 02/01/2024 112 (H) 74 - 99 mg/dL Final Sodium 02/01/2024 138 136 - 145 mmol/L Final Potassium 02/01/2024 4.9 3.5 - 5.3 mmol/L Final Chloride 02/01/2024 100 98 - 107 mmol/L Final Bicarbonate 02/01/2024 21 21 - 32 mmol/L Final Anion Gap 02/01/2024 22 (H) 10 - 20 mmol/L Final Urea Nitrogen 02/01/2024 15 6 - 23 mg/dL Final Creatinine 02/01/2024 0.95 0.50 - 1.05 mg/dL Final eGFR 02/01/2024 61 >60 mL/min/1.73m*2 Final Calculations of estimated GFR are performed using the 2020 CKD-EPI Study Refit equation without therace variable for the IDMS-Traceable creatinine methods. https://jasn.asnjournals.org/content/early//ASN.5336841216 Calcium 02/01/2024 9.4 8.6 - 10.6 mg/dL Final Albumin 02/01/2024 3.6 3.4 - 5.0 g/dL Final Alkaline Phosphatase 02/01/2024 47 33 - 136 U/L Final Total Protein 02/01/2024 5.8 (L) 6.4 - 8.2 g/dL Final AST 02/01/2024 13 9 - 39 U/L Final Bilirubin, Total 02/01/2024 0.7 0.0 - 1.2 mg/dL Final ALT 02/01/2024 24 7 - 45 U/L Final Patients treated with Sulfasalazine may generate falsely decreased results for ALT. Lab on 01/27/2024 Component Date Value Ref Range Status Glucose 01/27/2024 179 (H) 74 - 99 mg/dL Final Sodium 01/27/2024 133 (L) 136 - 145 mmol/L Final Potassium 01/27/2024 4.8 3.5 - 5.3 mmol/L Final Chloride 01/27/2024 98 98 - 107 mmol/L Final Bicarbonate 01/27/2024 23 21 - 32 mmol/L Final Anion Gap 01/27/2024 17 10 - 20 mmol/L Final Urea Nitrogen 01/27/2024 19 6 - 23 mg/dL Final Creatinine 01/27/2024 0.89 0.50 - 1.05 mg/dL Final eGFR 01/27/2024 66 >60 mL/min/1.73m*2 Final Calculations of estimated GFR are performed using the 2020 CKD-EPI Study Refit equation without therace variable for the IDMS-Traceable creatinine methods. https://jasn.asnjournals.org/content/early//ASN.4864936787 Calcium 01/27/2024 9.0 8.6 - 10.6 mg/dL Final Phosphorus 01/27/2024 4.2 2.5 - 4.9 mg/dL Final The performance characteristics of phosphorus testing in heparinized plasma have been validated by the individual laboratory site where testing is performed. Testing on heparinized plasma is not approved by the FDA; however, such approval is not necessary. Albumin 01/27/2024 3.6 3.4 - 5.0 g/dL Final Total Protein, Urine Random 01/27/2024 299 (H) 5 - 24 mg/dL Final Creatinine, Urine Random 01/27/2024 80.9 20.0 - 320.0 mg/dL Final T. Protein/Creatinine Ratio 01/27/2024 3.70 (H) 0.00 - 0.17 mg/mg Creat Final WBC 01/27/2024 12.8 (H) 4.4 - 11.3 x10*3/uL Final nRBC 01/27/2024 0.0 0.0 - 0.0 /100 WBCs Final RBC 01/27/2024 3.33 (L) 4.00 - 5.20 x10*6/uL Final Hemoglobin 01/27/2024 10.3 (L) 12.0 - 16.0 g/dL Final Hematocrit 01/27/2024 32.9 (L) 36.0 - 46.0 % Final MCV 01/27/2024 99 80 - 100 fL Final MCH 01/27/2024 30.9 26.0 - 34.0 pg Final MCHC 01/27/2024 31.3 (L) 32.0 - 36.0 g/dL Final RDW 01/27/2024 14.8 (H) 11.5 - 14.5 % Final Platelets 01/27/2024 334 150 - 450 x10*3/uL Final Neutrophils % 01/27/2024 86.3 40.0 - 80.0 % Final Immature Granulocytes %, Automated 01/27/2024 1.3 (H) 0.0 - 0.9 % Final Immature Granulocyte Count (IG) includes promyelocytes, myelocytes and metamyelocytes but does not include bands. Percent differential counts (%) should be interpreted in the context of the absolute cell counts (cells/UL). Lymphocytes % 01/27/2024 4.0 13.0 - 44.0 % Final Monocytes % 01/27/2024 7.6 2.0 - 10.0 % Final Eosinophils % 01/27/2024 0.4 0.0 - 6.0 % Final Basophils % 01/27/2024 0.4 0.0 - 2.0 % Final Neutrophils Absolute 01/27/2024 11.07 (H) 1.60 - 5.50 x10*3/uL Final Percent differential counts (%) should be interpreted in the context of the absolute cell counts (cells/uL). Immature Granulocytes Absolute, Au* 01/27/2024 0.17 0.00 - 0.50 x10*3/uL Final Lymphocytes Absolute 01/27/2024 0.51 (L) 0.80 - 3.00 x10*3/uL Final Monocytes Absolute 01/27/2024 0.98 (H) 0.05 - 0.80 x10*3/uL Final Eosinophils Absolute 01/27/2024 0.05 0.00 - 0.40 x10*3/uL Final Basophils Absolute 01/27/2024 0.05 0.00 - 0.10 x10*3/uL Final Lab on 01/08/2024 Component Date Value Ref Range Status Hemoglobin A1C 01/08/2024 7.7 (H) see below % Final Estimated Average Glucose 01/08/2024 174 Not Established mg/dL Final There may be more visits with results that are not included. Current Outpatient Medications on File Prior to Visit Medication Sig Dispense Refill albuterol 90 mcg/actuation inhaler Inhale 2 puffs every 4 hours if needed. apixaban (Eliquis) 5 mg tablet Take 1 tablet (5 mg) by mouth twice a day. atovaquone (Mepron) 750 mg/5 mL suspension Take 10 mL (1,500 mg) by mouth once daily. blood sugar diagnostic (Contour Next Test Strips) strip 1 each 2 times a day. 200 strip 1 carvedilol (Coreg) 25 mg tablet Take 0.5 tablets (12.5 mg) by mouth 2 times daily (morning and lateafternoon). cholecalciferol (Vitamin D-3) 50 MCG (2000 UT) tablet Take 2 tablets (4,000 Units) by mouth once daily. clindamycin (Cleocin T) 1 % lotion twice a day. Apply sparingly and massage in ezetimibe (Zetia) 10 mg tablet Take 1 tablet (10 mg) by mouth once daily. finerenone (Kerendia) 10 mg tablet tablet Take 1 tablet (10 mg) by mouth once daily. 90 tablet 3 fluocinonide (Lidex) 0.05 % external solution 1 (one) time each day. Apply to affected areas furosemide (Lasix) 20 mg tablet Take 1 tablet (20 mg) by mouth once daily as needed (swelling). guaiFENesin (Mucinex) 600 mg 12 hr tablet Take 2 tablets (1,200 mg) by mouth 2 times a day. Do not crush, chew, or split. icosapent ethyL (Vascepa) 1 gram capsule Take 2 capsules (2 g) by mouth twice a day. lansoprazole (Prevacid) [address] capsule TAKE 1 CAPSULE BY MOUTH ONCE DAILY. 90 capsule 3 linagliptin-metformin (Jentadueto XR) 2.5-1,000 mg tablet, IR - ER, biphasic 24hr Take 2 tablets bymouth once daily. 180 tablet 3 losartan (Cozaar) 100 mg tablet TAKE 1 TABLET BY MOUTH ONCE DAILY. 90 tablet 3 multivit,calc,mins/iron/folic (ONE-A-DAY WOMENS FORMULA ORAL) Take 1 tablet by mouth once daily. predniSONE (Deltasone) 20 mg tablet Take 3 tablets (60 mg) by mouth once daily. rosuvastatin (Crestor) 10 mg tablet TAKE 1 TABLET BY MOUTH ONCE DAILY. 90 tablet 3 sertraline (Zoloft) 25 mg tablet Take 1 tablet (25 mg) by mouth once daily. tiotropium (Spiriva Respimat) 2.5 mcg/actuation inhaler Inhale 2 puffs once daily. 12 g 3 [DISCONTINUED] aspirin 81 mg EC tablet Take 1 tablet (81 mg) by mouth once daily. (Patient not taking: Reported on 08/26/2024) [DISCONTINUED] colchicine 0.6 mg tablet 1 tablet Orally (Patient not taking: Reported on 08/26/2024) [DISCONTINUED] fluticasone (Flonase) 50 mcg/actuation nasal spray Administer 1 spray into each nostril once daily. Shake gently. Before first use, prime pump. After use, clean tip and replace cap. (Patient not taking: Reported on 08/26/2024) 16 g 1 No current facility-administered medications on file prior to visit. No images are attached to the encounter. 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) SOB (shortness of breath) Stage 3a chronic kidney disease (Multi) Acute heart failure, unspecified heart failure type Malignant neoplasm of left breast in female, estrogen receptor negative, unspecified site of breast Patient to be squatted to ER for chest pain and history of atrial fibrillation Patient to start on vitamin B12 1000 mg daily Patient to increase iron in diet with her leafy green vegetables Patient to call for questions or concerns documented in this [facility] Work Phone: [phone]) 183-939601-03-2025 History of Present illness Narrative* Stephanie BhatiaClaire, - 08/19/2024 11:30 AM EST [facility] [place] [address] [place], [place] [id number] Pulmonary Patient Visit 08/19/2024 Referring Physician: CELIA AL DO Reason for Referral: Lung Nodules 09/29/23 History of Present Illness Rolando Peters is a 79 y.o. female with history of stage I triple negative breast cancer s/p left mastectomy 05/2011, right-sided breast cancer s/p mastectomy 06/1994 s/p adjuvant chemo/tamoxifen, CKD who presented for evaluation of multiple PET avid pulmonary nodules. Patient reported she follows with oncology Dr. Marcus. Stated that she was referred to Dr. Marcus as she has had progressive weightloss, about 50 pounds since 07/2022. Admitted to a chronic mostly nonproductive cough and postnasaldrip. Reported progressive CRUZ with stairs, denied any shortness of breath at rest. Stated she was diagnosed with exercise-induced asthma several years ago, has an albuterol inhaler which she rarely requires. Denied any hemoptysis, chest pain, night sweats. Initially diagnosed with INGA in 2007, completed PSG and prescribed CPAP with nasal mask, but has not been compliant. 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 Procedure complicated by pneumothorax requiring chest tube. Patient reports feeling well since being discharged. Admitted to blood- tinged sputum postprocedure which has since resolved. Admitted to chronic CRUZ with stairs, denied any shortness of breath at rest, chest pain. 12/04/23 Currently on prednisone 30mg until next week. Stated that she has some sinus drainage due to seasonal allergies, but that her cough has resolved. Was started on Spiriva and noticed improvement of wheezing except on the day that she forgot to take it. Denies any fevers, chills. 03/11/2024 Patient reported that she was hospitalized in January for A-fib with RVR and HFpEF exacerbation. Just completing her steroid taper. Now feeling improved from a respiratory standpoint. Denied any shortness of breath, CRUZ, wheezing, chest tightness. Admitted to some rhinorrhea and postnasal drip. 06/07/2024 Patient reported sinus drainage and productive cough for the past 4 weeks. Continues to have CRUZ with stairs, but now may be having limitation of activity. Admitted to wheezing until she is able to clear phlegm. Denied any fevers, chills, chest tightness, chest pain. S/p ablation last month, continues to have palpitations. Denied any lower extremity swelling and stated her weight has been stable. 08/19/24 Patient reported worsening respiratory symptoms including increased dyspnea on exertion and worsening nonproductive cough. Using albuterol more often, 2-3 times daily with her Spiriva. Denied any fevers, chills, unintentional weight loss. PastMedical History Past Medical History: Diagnosis Date Arrhythmia Arthritis Asthma Breast cancer (HCC) 1993 Right Breast(Mastectomy) Breast cancer (HCC) 2010 Left Breast(Simple Mastectomy, SLND) Chronic kidney disease COPD (chronic obstructive pulmonary disease) ([facility]) Coronary artery disease Diabetes ([facility]) Emphysema of lung ([facility]) Within last year GERD (gastroesophageal reflux disease) High blood pressure Lung nodule -2022 Occlusion and stenosis of unspecified carotid artery Pure hypercholesterolemia Syncope and collapse 08/29/2022 Past Surgical History Past Surgical History: Procedure Laterality Date BRONCHOSCOPY CARDIAC ELECTROPHYSIOLOGY PROCEDURE N/A 05/05/2024 Performed by Walt Leigh MD at [facility] Cardiac Cath/EP Lab CAROTID ENDARTERECTOMY Right 2008 CATARACT EXTRACTION Bilateral 2006 CHEST TUBE INSERTION Right 10/05/2023 ENDOBRONCHIAL ULTRASOUND EBUS (HISTORICAL) 10/05/2023 LUNG BIOPSY MASTECTOMY Left 2010 simple/reconstruction/gingivagrapht MASTECTOMY Right 1993 reconstruction (TRAM) TOTAL ABDOMINAL HYSTERECTOMY W/ BILATERAL SALPINGOOPHORECTOMY 1998 TUBAL LIGATION 1979 Allergies Allergies Allergen Reactions Isosulfan Blue Anaphylaxis Methylene Blue Sulfa Antibiotics Rash Medications Medication Documentation Review Audit Reviewed by Stephanie Arana DO (Physician) on 08/19/24 at 1354 Medication Order Taking? Sig Documenting Provider Last Dose Status albuterol (Ventolin HFA) 108 (90 Base) MCG/ACT inhaler [id number] Yes Inhale 2 puffs every 4 hours asneeded for wheezing or shortness of breath. Stephanie Arana DO Taking Active apixaban (Eliquis) 5 MG tablet [id number] Yes Take 1 tablet (5 mg) by mouth 2 times daily. Kristy Richards APRN - WINDOWS TECHNICAL SPECIALIST Active carvedilol (Coreg) 12.5 MG tablet [id number] Yes Take 1 tablet (12.5 mg) by mouth in the morning and 1 tablet (12.5 mg) in the evening. Take with meals. SUJATA Negrete CNP Taking Active cholecalciferol (Vitamin D-3) 50 MCG (1999 UT) tablet [id number] Yes Take 4,000 Units by mouth daily.Historical ProviderMD Taking Active Contour Next Test test strip [id number] Yes USE ONE strip TO test TWICE DAILY Historical Provider, Active ezetimibe (Zetia) 10 MG tablet [id number] Yes Take 1 tablet (10 mg) by mouth in the morning. SUJATA Negrete CNP Taking Active Finerenone (Kerendia) 10 MG tablet [id number] Yes Take 1 tablet by mouth daily. Historical ProviderMD Taking Active fluticasone (Cutivate) 0.05 % cream [id number] Yes Apply topically Daily as needed (itching). Historical ProviderMD Taking Active fluticasone (Flonase) 50 MCG/ACT nasal spray [id number] Yes Administer 1 spray into each nostril daily. Shake gently. Before first use, prime pump. After use, clean tip and replace cap. Historical ProviderMD Taking Active furosemide (Lasix) 20 MG tablet [id number] Yes Take 1 tablet (20 mg) by mouth Daily as needed (weightgain, swelling or shortness of breath). Kristy Doran APRN - WINDOWS TECHNICAL SPECIALIST Taking Active guaiFENesin (Mucinex) 600 MG 12 hr tablet [id number] Yes Take 1,200 mg by mouth twice a day. Historical ProviderMD Active Jentadueto XR 2.5-1000 MG per 24 hr tablet [id number] Yes take 2 tablets by mouth once daily Historical ProviderMD Taking Active lansoprazole (Prevacid) [address] capsule [id number] Yes 1 capsule in the morning. Historical ProviderMD Taking Active losartan (Cozaar) 100 MG tablet [id number] Yes Take 1 tablet (100 mg) by mouth daily. Kristy Doran APRN - WINDOWS TECHNICAL SPECIALIST Taking Active Multiple Vitamins-Minerals (MULTIPLE VITAMINS/WOMENS PO) [id number] Yes Take by mouth daily. Historical Provider, Active rosuvastatin (Crestor) 10 MG tablet [id number] Yes daily. Historical Provider, Taking Active sertraline (Zoloft) 25 MG tablet [id number] Yes Take 1 tablet (25 mg) by mouth daily. Steven Stewart, DO Taking Active tiotropium (Spiriva Respimat) 2.5 MCG/ACT inhaler [id number] Yes Inhale 2 puffs daily. 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 Substance Use Topics Alcohol use: Yes Alcohol/week: 2.0 - 16.0 standard drinks of alcohol Types: 2 Glasses of wine per week Comment: occ FamilyHistory Family History Problem Relation Name Age of Onset Ovarian cancer Mother 66 Heart attack Father Lucita (Mother) 76 High Blood Pressure Father Lucita (Mother) Macular degeneration Father Lucita (Mother) Cancer Father Lucita (Mother) Ovarian cancer Mother's Sister 45 Other ([id number]) Son neuofibromatosis, BRCA1 positive Neurofibromatosis Son High Blood Pressure Son Cancer Son hairy cell leukemia Breast cancer Cousin 42 +brca Bladder Cancer Cousin 19 Hypertension Sister Angie Kidney disease Sister Angie Hypertension Sister Mireya Sister Kidney disease Sister Mireya Sister Review of Systems Review of Systems Respiratory: Positive for cough, chest tightness and shortness of breath. Cardiovascular: Negative. Physical Exam Vitals: 08/19/24 1129 08/19/24 1134 BP: (!) 170/66 (!) 175/50 Pulse: 77 SpO2: 94% Weight: 140 lb (63.5 kg) Height: 5' 7 (1.702 m) Physical Exam Vitals reviewed. Constitutional: General: She is not in acute distress. Appearance: Normal appearance. HENT: Head: Normocephalic and atraumatic. Nose: No congestion. Mouth/Throat: Mouth: Mucous membranes are moist. Eyes: General: No scleral icterus. Extraocular Movements: Extraocular movements intact. Cardiovascular: Rate and Rhythm: Normal rate and regular rhythm. Pulmonary: Effort: Pulmonary effort is normal. No respiratory distress. Breath sounds: Normal breath sounds. No wheezing, rhonchi or rales. Musculoskeletal: General: No swelling or tenderness. Skin: General: Skin is warm and dry. Neurological: Mental Status: She is alert and oriented to person, place, and time. Psychiatric: Mood and Affect: Mood normal. Labs: Available studies were reviewed Radiology: Personally reviewed and interpreted Chest CT 08/24/2023: Interval development of scattered focal consolidations in the lungs, particularly in the apical left lung lobes as discussed. Recommended short-term follow-up imaging to document resolution. Interval development of new lateral right middle lung lobe nodule with interval enlargement of other previously noted nodules as discussed. Further clinical attention and workup is warranted. Moderate pulmonary emphysema. Coronary and aortic atherosclerosis. Other chronic findings as discussed. PET/CT 09/17/23: 1 cm irregular nodular density within the lateral aspect of the right upper lobe onthe low-dose CT images demonstrates intense FDG accumulation, consistent with malignancy. A 7 mm nodular density within the anteromedial right lower lobe also demonstrates abnormal FDG accumulation, suspicious for malignancy. A streaky density within the left lower lobe on the low-dose CT images demonstrates mild FDG accumulation, less than typically expected for malignancy. A small, somewhat streaky nodular density within the medial aspect of the right lower lobe also demonstrates mild FDG uptake. There is a linear density at the posterior aspect of the left lung apex which demonstrate mild to moderate FDG accumulation which is nonspecific, however the linear configuration of this area is more suggestive of an inflammatory etiology. CT follow-up of these findings is recommended. No evidence of regional edmond or distant metastatic disease. Chest CT 11/25/23: Multiple bilateral areas of lung parenchymal abnormality and increased activity on the previous PET/CT are unchanged. There is a new 6 mm nodular density in the left upper lobe lung. Continued follow-up CT would be helpful. Chest CT 02/24/2024: 1. Interval improvement of anterior left upper lung lobe infiltrates with residual opacities still observed. Follow-up imaging to document resolution. 2. New apical right lower lung lobe and subpleural right middle lung lobe 6 mm nodules. For these nodule characteristics, Fleischner society recommends CT at 3-6 months and then at 18-24 months. 3. Coronary and aortic atherosclerosis. 4. Other chronic and postsurgical findings as discussed. Chest CT 05/27/2024: Interval development of several groundglass and solid pulmonary nodules measuring up to 2.4 cm and 9 mm respectively. In addition, increased size of several previously noted pulmonary nodules. Further clinical evaluation is warranted in this given clinical context. Interval development of right-sided pleural effusion with passive atelectasis. Coronary and aortic atherosclerosis. Other chronic and postsurgical findings as discussed. Chest CT 07/27/2024: 1. Numerous indeterminate small and clustered irregular nodularities. Some appear slightly enlarged and some slightly smaller and are indeterminate. The largest single nodularityin the right lower lobe 1.0 x 0.9 cm. Right lower lobe groundglass nodule has resolved. No new groundglass nodules. These could be infectious or inflammatory. Neoplastic etiology is felt a less likely consideration but not excluded. Recommend continued follow-up in 3-6 months. 2. Chronic moderate right pleural effusion minimally enlarged. 3. Severe atherosclerosis coronary artery, aorta and splenic artery. There is some at least mild stenosis within the upper abdominal aorta. This is incompletely evaluated without contrast. PFT's: 10/29/2023: Moderate obstruction, significant response to bronchodilators, air trapping, moderately reduced diffusion capacity Assessment/plan: Waxing and waning pulmonary nodules, previously biopsied positive for organizing pneumonia Right pleural effusion A-fib s/p ablation HF Hx breast ca s/p B/L mastectomies COPD/asthma overlap INGA Former smoker -S/p ENB/EBUS 10/05/23. 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 Right middle lobe biopsy also with adjacent acellular material. TBNA with RML with atypical cells, RLL nondiagnostic, LN 7, 4R, 11R negative for malignancy. Pneumonia PCR, bacterial culture, fungal stain/culture, AFB stain/culture, silver stain, Aspergillus galactomannan, beta D glucan negative. Procedure complicated by pneumothorax. -Completed prolonged steroid taper for organizing pneumonia, follow-up imaging had improvement of hypermetabolic areas. -Further follow-up chest imaging has had waxing and waning of pulmonary nodules, images reviewed with patient. Patient has had slow progression of respiratory symptoms including worsening dyspnea andnonproductive cough, denied any infectious symptoms. Will restart steroids for organizing pneumoniawith prednisone 60 mg daily, decrease by 10 mg daily every 2 weeks, will slow taper once reach 20 mg daily. Restart atovaquone for PCP prophylaxis. Repeat chest CT in 6 weeks. Instructed patient to monitor for new infectious symptoms and notify office if any develop. May require repeat bronchoscopyif nodules do not improve on follow-up imaging. -Chest CT with right pleural effusion, previously resolved with diuresis, now likely large enough for thoracentesis. Discussed pleural fluid studies and to see if any symptomatic improvement, patientwould like to defer for now to see if she has improvement of her respiratory symptoms with above treatment first. Additionally will adjust her prn Lasix dosing. -Unclear etiology for organizing pneumonia. Medication list reviewed, no clear association. Autoimmune evaluation with WERO, ANCA, RF, anti-CCP, Sjogren's antibody, myositis panel, HP panel negative. Prior infectious evaluation negative. Completed MBS, negative for aspiration. -PFTs previously reviewed with patient. C/w spiriva and albuterol prn. -Completed PSG through her cementer oil well, AHI 5.6, discussed mild INGA though appears positional and worse when supine. Recently received auto CPAP 5-20 cm H2O. Will review compliance report and order follow-up overnight pulse ox testing at next visit -S/p TDAP, influenza vaccine this year. Previously recommended prevnar 20, RSV. Follow up: After CT to review results Please seek immediate medical attention for any worsening or worrying new symptoms. Patient education, benefits, risks, and precautions provided. Management plan was discussed in detail and in agreement. All questions or concerns answered to satisfaction and understood. Stephanie Arana DO 1:55 PM 08/19/24 Pulmonary and Critical Care Medicine documented in this [facility]01-03-2025 Instructions* Patient Instructions* Sofi Gonzalez MA - 08/19/2024 11:30 AM EST YOUR APPOINTMENT TODAY WAS WITH THE [facility] LUNG NODULE CLINIC, COPD CLINIC, PULMONARY AND SLEEP MEDICINE OFFICE. PLEASE CALL OUR OFFICE AT [phone] IF YOU HAVE NOT RECEIVED YOUR TEST RESULTS 7 DAYS AFTER TESTING IS COMPLETED. PLEASE REMEMBER TO REQUEST REFILLS AT YOUR OFFICE VISITS. PHONE/FAX REQUESTS REQUIRE 48-72 HOURS FOR RESPONSE. A FRIENDLY REMINDER COPAYS ARE DUE AT TIME OF SERVICE. THANK YOU. Our Patients Are Important! We want to improve and you can help. After your visit we want you to feel: Listened to, Respected and have your health care explained. You may receive a survey asking you about your visit. Please complete the survey. We will use your feedback to make improvements. COVID-19 VACCINATION INFORMATION: PH. [phone] [facility]/CORONAVIRUS/VACCINE [facility] Central Scheduling [phone] [facility] Sleep Scheduling [phone] documented in this [facility]12-18-2024 Telephone encounter Note* Telephone Encounter - Sravani Vaughan RN - 08/03/2024 10:08 AM EST Ms. Peters advised she did have appointment with Cardiology on 08/01/24 however, they did not change her Lasix. She states she is only to take it PRN for a few days when she has ankle swelling. It has been weeks since she last took any Lasix. [id number] Miscellaneous Notes* Telephone Encounter - Sravani Vaughan RN - 08/03/2024 10:08 AM EST Ms. Peters advised she did have appointment with Cardiology on 08/01/24 however, they did not change her Lasix. She states she is only to take it PRN for a few days when she has ankle swelling. It has been weeks since she last took any Lasix. * Telephone Encounter - Sravani Vaughan RN - 08/02/2024 10:17 AM EST Patient called by this RN and was given the message from the provider as written in this encounter.Patient voices understanding. Patient denies any fever, chills or body aches. She reports she has noticed an increase in SOB recently with chest heaviness. She has had a non-productive cough the past few weeks and having difficulty bringing anything up despite taking mucinex. She is using her albuterol inhaler once a day. This RN explained that she can use it every 4 hours as needed for SOB and encouraged to pre- medicate before activity. Patient states she isn't sure if she is getting the full medications from the Spiriva Respimat as it makes her cough. ----- Message from Stephanie Arana DO sent at 08/01/2024 11:42 AM EST ----- Please let patient know that the nodules on her follow up chest CT continue to wax and wane. She also has had a little enlargement of her right pleural effusion. Please ask her if she's having any respiratory or infectious symptoms. Thank you. ----- Message ----- From: Interface, Radiology Results In Sent: 08/01/2024 8:23 AM EST To: Stephanie Arana DO * Telephone Encounter - Sravani Vaughan RN - 08/02/2024 10:17 AM EST ----- Message from Stephanie Arana DO sent at 08/01/2024 11:42 AM EST ----- Please let patient know that the nodules on her follow up chest CT continue to wax and wane. She also has had a little enlargement of her right pleural effusion. Please ask her if she's having any respiratory or infectious symptoms. Thank you. ----- Message ----- From: Interface, Radiology Results In Sent: 08/01/2024 8:23 AM EST To: Stephanie Arana DO documented in this encounterSSt. [facility] [id number] Telephone encounter Note* Telephone Encounter - Sravani Vaughan RN - 08/02/2024 10:17 AM EST Patient called by this RN and was given the message from the provider as written in this encounter.Patient voices understanding. Patient denies any fever, chills or body aches. She reports she has noticed an increase in SOB recently with chest heaviness. She has had a non-productive cough the past few weeks and having difficulty bringing anything up despite taking mucinex. She is using her albuterol inhaler once a day. This RN explained that she can use it every 4 hours as needed for SOB and encouraged to pre- medicate before activity. Patient states she isn't sure if she is getting the full medications from the Spiriva Respimat as it makes her cough. ----- Message from Stephanie Arana DO sent at 08/01/2024 11:42 AM EST ----- Please let patient know that the nodules on her follow up chest CT continue to wax and wane. She also has had a little enlargement of her right pleural effusion. Please ask her if she's having any respiratory or infectious symptoms. Thank you. ----- Message ----- From: Interface, Radiology Results In Sent: 08/01/2024 8:23 AM EST To: Stephanie Arana DO [facility] [id number] Telephone encounter Note* Telephone Encounter - Sravani Vaughan RN - 08/02/2024 10:17 AM EST ----- Message from Stephanie Arana DO sent at 08/01/2024 11:42 AM EST ----- Please let patient know that the nodules on her follow up chest CT continue to wax and wane. She also has had a little enlargement of her right pleural effusion. Please ask her if she's having any respiratory or infectious symptoms. Thank you. ----- Message ----- From: Concha, Radiology Results In Sent: 08/01/2024 8:23 AM EST To: Stephanie Arana DO [facility] [id number] Miscellaneous Notes* Telephone Encounter - Sravani Vaughan RN - 08/02/2024 10:17 AM EST Patient called by this RN and was given the message from the provider as written in this encounter.Patient voices understanding. Patient denies any fever, chills or body aches. She reports she has noticed an increase in SOB recently with chest heaviness. She has had a non-productive cough the past few weeks and having difficulty bringing anything up despite taking mucinex. She is using her albuterol inhaler once a day. This RN explained that she can use it every 4 hours as needed for SOB and encouraged to pre- medicate before activity. Patient states she isn't sure if she is getting the full medications from the Spiriva Respimat as it makes her cough. ----- Message from Stephanie Arana DO sent at 08/01/2024 11:42 AM EST ----- Please let patient know that the nodules on her follow up chest CT continue to wax and wane. She also has had a little enlargement of her right pleural effusion. Please ask her if she's having any respiratory or infectious symptoms. Thank you. ----- Message ----- From: Concha, Radiology Results In Sent: 08/01/2024 8:23 AM EST To: Stephanie Arana DO * Telephone Encounter - Sravani Vaughan RN - 08/02/2024 10:17 AM EST ----- Message from Stephanie Arana DO sent at 08/01/2024 11:42 AM EST ----- Please let patient know that the nodules on her follow up chest CT continue to wax and wane. She also has had a little enlargement of her right pleural effusion. Please ask her if she's having any respiratory or infectious symptoms. Thank you. ----- Message ----- From: Interface, Radiology Results In Sent: 08/01/2024 8:23 AM EST To: Stephanie Arana DO documented in this [facility]12-16-2024 History of Present illness Narrative* Walt Leigh MD - 08/01/2024 11:30 AM EST [facility] Cardiology [facility] CARDIOLOGY [address] [address] Dept: [phone] Dept Loc: [phone] Visit type: Established : 1945 Chief Complaint: Chief Complaint Patient presents with Follow-up 2 Month History of Present Illness: Rolando Peters is a 79 y.o. female with a history of carotid disease s/p CEA, breast CA, CKD stage II, tobacco abuse, COPD, HTN, HFmrEF, DM2 and PAF (on Eliquis, amio) s/p PVI + PWI, and ablation of atypical flutter with anterior mitral line 04/2024. Since her ablation, she has been feeling relativelywell. No further episodes of sustained palpitations. She has mild fatigue. Overall feels better. Past Medical History: Past Medical History: Diagnosis Date Arrhythmia Arthritis Asthma Breast cancer (HCC) 1993 Right Breast(Mastectomy) Breast cancer (HCC) 2010 Left Breast(Simple Mastectomy, SLND) Chronic kidney disease COPD (chronic obstructive pulmonary disease) (HCC) Coronary artery disease Diabetes (HCC) Emphysema of lung (HCC) Within last year GERD (gastroesophageal reflux disease) High blood pressure Lung nodule -2022 Occlusion and stenosis of unspecified carotid artery Pure hypercholesterolemia Syncope and collapse 08/29/2022 Past Surgical History Past Surgical History: Procedure Laterality Date BRONCHOSCOPY CARDIAC ELECTROPHYSIOLOGY PROCEDURE N/A 05/05/2024 Performed by Walt Leigh MD at [facility] Cardiac Cath/EP Lab CAROTID ENDARTERECTOMY Right 2009 CATARACT EXTRACTION Bilateral 2006 CHEST TUBE INSERTION Right 10/05/2023 [facility] ENDOBRONCHIAL ULTRASOUND EBUS (HISTORICAL) 10/05/2023 LUNG BIOPSY MASTECTOMY Left 2010 simple/reconstruction/gingivagrapht MASTECTOMY Right 1993 reconstruction (TRAM) TOTAL ABDOMINAL HYSTERECTOMY W/ BILATERAL SALPINGOOPHORECTOMY 1998 TUBAL LIGATION 1979 Family History Family History Problem Relation Name Age of Onset Ovarian cancer Mother 66 Heart attack Father Lucita (Mother) 76 High Blood Pressure Father Lucita (Mother) Macular degeneration Father Lucita (Mother) Cancer Father Lucita (Mother) Ovarian cancer Mother's Sister 45 Other ([id number]) Son neuofibromatosis, BRCA1 positive Neurofibromatosis Son High Blood Pressure Son Cancer Son hairy cell leukemia Breast cancer Cousin 42 +brca Bladder Cancer Cousin 19 Hypertension Sister Angie Kidney disease Sister Angie Hypertension Sister Mireya Sister Kidney disease Sister Mireya Sister Social History Social History Tobacco Use Smoking status: Former Current packs/day: 0.00 Average packs/day: 1 pack/day for 30.0 years (30.0 ttl pk-yrs) Types: Cigarettes Start date: 08/17/1963 Quit date: 08/17/1993 Years since quittin.9 Smokeless tobacco: Never 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: , 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[facility], 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, 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 Vaping Use Vaping status: Never Used Substance Use Topics Alcohol use: Yes Alcohol/week: 2.0 - 16.0 standard drinks of alcohol Types: 2 Glasses of wine per week Comment: occ Drug use: No Comment: caffeine use: 1 cup of coffee a day Allergies: Allergies Allergen Reactions Isosulfan Blue Anaphylaxis Methylene Blue Sulfa Antibiotics Rash Medications: Current Outpatient Medications: albuterol (Ventolin HFA) 108 (90 Base) MCG/ACT inhaler, Inhale 2 puffs every 4 hours as needed for wheezing or shortness of breath., Disp: 8 g, Rfl: 11 carvedilol (Coreg) 12.5 MG tablet, Take 1 tablet (12.5 mg) by mouth in the morning and 1 tablet (12.5 mg) in the evening. Take with meals., Disp: 180 tablet, Rfl: 1 cholecalciferol (Vitamin D-3) 50 MCG (2000 UT) tablet, Take 4,000 Units by mouth daily., Disp: , Rfl: ezetimibe (Zetia) 10 MG tablet, Take 1 tablet (10 mg) by mouth in the morning., Disp: 90 tablet, Rfl: 2 Finerenone (Kerendia) 10 MG tablet, Take 1 tablet by mouth daily., Disp: , Rfl: fluticasone (Cutivate) 0.05 % cream, Apply topically Daily as needed (itching)., Disp: , Rfl: fluticasone (Flonase) 50 MCG/ACT nasal spray, Administer 1 spray into each nostril daily. Shake gently. Before first use, prime pump. After use, clean tip and replace cap., Disp: , Rfl: furosemide (Lasix) 20 MG tablet, Take 1 tablet (20 mg) by mouth Daily as needed (weight gain, swelling or shortness of breath)., Disp: , Rfl: Jentadueto XR 2.5-1000 MG per 24 hr tablet, take 2 tablets by mouth once daily, Disp: , Rfl: lansoprazole (Prevacid) [address] capsule, 1 capsule in the morning., Disp: , Rfl: losartan (Cozaar) 100 MG tablet, Take 1 tablet (100 mg) by mouth daily., Disp: 90 tablet, Rfl: 1 Multiple Vitamins-Minerals (MULTIPLE VITAMINS/WOMENS PO), Take by mouth daily., Disp: , Rfl: rosuvastatin (Crestor) 10 MG tablet, daily., Disp: , Rfl: sertraline (Zoloft) 25 MG tablet, Take 1 tablet (25 mg) by mouth daily., Disp: 30 tablet, Rfl: 11 tiotropium (Spiriva Respimat) 2.5 MCG/ACT inhaler, Inhale 2 puffs daily., Disp: 1 each, Rfl: 11 Vascepa 1 g capsule, TAKE 2 CAPSULES BY MOUTH 2 TIMES DAILY, Disp: 360 capsule, Rfl: 3 apixaban (Eliquis) 5 MG tablet, Take 1 tablet (5 mg) by mouth 2 times daily., Disp: 180 tablet, Rfl: 1 Review of Systems: Review of Systems Constitutional: Positive for fatigue. HENT: Negative. Eyes: Negative. Respiratory: Positive for apnea and shortness of breath. Cardiovascular: Positive for palpitations and leg swelling. Gastrointestinal: Negative. Endocrine: Negative. Genitourinary: Negative. Musculoskeletal: Negative. Skin: Negative. Neurological: Negative. Hematological: Negative. Psychiatric/Behavioral: Negative. Physical Examination: Vitals: Vitals: 08/01/24 1128 08/01/24 1148 BP: (S) (!) 170/62 (!) 148/72 BP Location: Left arm Left arm Patient Position: Sitting Sitting BP Cuff Size: Adult Pulse: 66 SpO2: 98% Weight: 137 lb (62.1 kg) Height: 5' 7 (1.702 m) Body mass index is 21.46 kg/m . Physical Exam Constitutional: Appearance: Normal appearance. HENT: Head: Normocephalic and atraumatic. Mouth/Throat: Mouth: Mucous membranes are moist. Eyes: Extraocular Movements: Extraocular movements intact. Cardiovascular: Rate and Rhythm: Normal rate and regular rhythm. Pulses: Normal pulses. Heart sounds: Normal heart sounds. Pulmonary: Effort: Pulmonary effort is normal. Breath sounds: Normal breath sounds. Abdominal: Palpations: Abdomen is soft. Musculoskeletal: General: Normal range of motion. Cervical back: Normal range of motion and neck supple. Skin: General: Skin is warm and dry. Neurological: General: No focal deficit present. Mental Status: She is alert and oriented to person, place, and time. Psychiatric: Mood and Affect: Mood normal. Behavior: Behavior normal. Thought Content: Thought content normal. Judgment: Judgment normal. Laboratory Tests: Lab Results Component Value Date WBC 7.0 04/20/2024 HGB 9.4 (A) 04/20/2024 HCT 31.6 (A) 04/20/2024 MCV 101.0 (A) 04/20/2024 PLT 241 04/20/2024 Lab Results Component Value Date GLUCOSE 91 04/20/2024 CALCIUM 8.7 04/20/2024 NA 137 04/20/2024 K 4.9 04/20/2024 CO2 24 01/22/2024 CL 104 04/20/2024 BUN 14 04/20/2024 CREATININE 1.08 (A) 04/20/2024 @LASTP@ Lab Results Component Value Date CHOL 149 06/14/2020 CHOL 170 08/22/2019 Lab Results Component Value Date TRIG 265 (A) 06/14/2020 TRIG 280 (A) 08/22/2019 Lab Results Component Value Date HDL 45 06/14/2020 HDL 54 08/22/2019 No results found for: LDLCALC NT PRO BNP Date Value Ref Range Status 01/19/2024 6,800 (H) <20 - 300 pg/mL Final Assessment and Plan: 1. Persistent atrial fibrillation (HCC) 2. 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) 3. Essential hypertension Persistent atrial fibrillation -Status post PVI + PWI and atypical mitral flutter ablation 05/06/2024 -No recurrence since the ablation -Continue Eliquis 5 mg twice daily Tachycardia-mediated cardiomyopathy -EF has recovered 07/2024 Hypertension -Blood pressure is elevated, but we are allowing permissive hypertension due to orthostasis in the past. Will defer further management to Dr. Jerome. She will continue to follow with Dr. Jerome and see me as needed in the future. documented in this [facility]12-09-2024 Telephone encounter Note* Telephone Encounter - Ken Valenzuela - 07/25/2024 4:08 PM EST Submitted DME [id number] Miscellaneous Notes* Telephone Encounter - Ken Valenzuela - 07/25/2024 4:08 PM EST Submitted DME Order CPAP in via [facility] documented in this [facility]12-04-2024 History of Present illness Narrative* ARMANDO Jones - 07/20/2024 11:30 AM EST Images from the original note were not included. Speech-Language Pathology SPEECH LANGUAGE PATHOLOGY [facility] Modified Barium Swallow Study Patient Name: Rolando Peters Evaluation Date: 07/20/2024 Date of : 1945 Admission Date: 07/20/2024 11:30 AM Age: 79 y.o. Room/Bed: Room/bed info not found IMPRESSION: The patient presents with no oral phase dysphagia however noted piecemeal delutition and oral residuals when taking pudding and solid (cookie) textures that required a second re-swallow .There is mild pharyngeal phase dysphagia associated with pharyngoceles and cervical osteophytes C3,C4-C5. There was no laryngeal penetration or aspiration observed. RECOMMENDATION: Recommend Regular solids and Thin liquids and meds as tolerated and the following precautions: - Upright positioning for all PO intake - Swallow x 2 per bolus Penetration-Aspiration Scale: 1. No contrast enters the airway. No further skilled acute TONGER indicated at this time. Please reconsult should changes occur. General Initial MBS completed to assess the efficiency of her swallow function, rule out aspiration, and make recommendations regarding safe dietary consistencies, effective compensatory strategies, and safeeating environment. Subjective: Pt walked independently to Fluoroscopy room. Drove self. Radiologist: Rob Cali MD Prior MBSS?: No Baseline Diet: Regular diet with thin liquids. Current diet: Textures tested: - thin liquid, (cup edge, straw) - mildly thick liquid, (cup edge) - puree, (teaspoon) - regular solids - self administered Patient position: lateral Past Medical History: Past Medical History: Diagnosis Date Arrhythmia Arthritis Asthma Breast cancer (HCC) 1993 Right Breast(Mastectomy) Breast cancer (HCC) 2010 Left Breast(Simple Mastectomy, SLND) Chronic kidney disease COPD (chronic obstructive pulmonary disease) (HCC) Coronary artery disease Diabetes (HCC) Emphysema of lung ([facility]) Within last year GERD (gastroesophageal reflux disease) High blood pressure Lung nodule -2022 Occlusion and stenosis of unspecified carotid artery Pure hypercholesterolemia Syncope and collapse 08/29/2022 Past Surgical History: Past Surgical History: Procedure Laterality Date BRONCHOSCOPY CARDIAC ELECTROPHYSIOLOGY PROCEDURE N/A 05/05/2024 Performed by Walt Leigh MD at [facility] Cardiac Cath/EP Lab CAROTID ENDARTERECTOMY Right 2008 CATARACT EXTRACTION Bilateral 2006 CHEST TUBE INSERTION Right 10/05/2023 ENDOBRONCHIAL ULTRASOUND EBUS (HISTORICAL) 10/05/2023 LUNG BIOPSY MASTECTOMY Left 2010 simple/reconstruction/gingivagrapht MASTECTOMY Right 1993 reconstruction (TRAM) TOTAL ABDOMINAL HYSTERECTOMY W/ BILATERAL SALPINGOOPHORECTOMY 1998 TUBAL LIGATION 1978 Admission Diagnosis: Patient Active Problem List Diagnosis Date Noted On continuous oral anticoagulation 02/01/2024 On amiodarone therapy 02/01/2024 Elevated LFTs 02/01/2024 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) 02/01/2024 Pneumothorax 10/05/2023 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) 05/07/2023 CKD stage G2/A3, 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/g 05/07/2023 Multiple pulmonary nodules 11/04/2022 Impingement syndrome of right shoulder 10/23/2022 Orthostatic hypotension 09/23/2022 Proteinuria 09/23/2022 Low back pain 09/01/2022 Spondylosis without myelopathy or radiculopathy, lumbosacral region 08/29/2022 Gout 02/09/2022 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 with 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 (HCC) 02/09/2022 Sialoadenitis of submandibular gland 02/09/2022 Tendinitis of hip 02/09/2022 Obstructive sleep apnea syndrome 02/09/2022 Osteoporosis 02/09/2022 Disorder of bone 02/09/2022 Anxiety 02/09/2022 Vitamin D deficiency 02/09/2022 History of anesthesia problem 02/09/2022 Persistent atrial fibrillation (HCC) 04/15/2024 Other nonspecific abnormal finding of lung field 09/29/2023 History of COVID-19 09/01/2022 Essential hypertension 05/14/2020 Bilateral carotid artery stenosis 05/14/2020 Dyslipidemia 03/08/2019 Diabetes (HCC) 11/17/2018 SOB (shortness of breath) 11/11/2017 Palpitations 11/11/2017 History of bilateral breast cancer 12/14/2015 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 Reason for current admission: Increased mucous and cannot always expectorate secretions. Some increased difficulty with swallowing liquids. Frequent throat clearing and globus sensation as well. (Pt has new lung nodules with plan for biopsy in 08/2024) Oral Phase Mastication and oral control and containment is WFL. Piecemeal swallows with pudding. Mild oral residuals after swallowing cookie/pudding barium mixture. Pt spontaneously re-swallows to clear any oral residuals. Pharyngeal Phase Functional laryngeal elevation, tongue base retraction and pharyngeal constriction. +pharyngocele that retains thin and mildly thick liquids until conclusion of swallow emptying in vallecula post swallow. +both vallecular and piriform residuals after thin liquids via straw. No airway compromise. Ptis effective to clear residuals with a second swallow and this strategy was recommended for her. Strategies used: re-swallow (effective to clear oral and pharyngeal residuals) Esophageal Phase The esophagus was not visualized below the level of the UES. Noted: N/A Education The preliminary results of this evaluation were briefly shared with the patient. Goals Patient Stated Goal: To complete all the testing. Therapy Time TONGER Individual Minutes Time In: 1147 Time Out: 1210 Minutes: 23 ARMANDO Jones documented in this [facility]11-21-2024 History of Present illness Narrative* Stephanie Arana DO - 07/07/2024 2:15 PM EST [facility] [place] Medicine [address] [place] [id number] Pulmonary Patient Visit 07/07/2024 Referring Physician: CELIA AL DO Reason for Referral: Lung Nodules 09/29/23 History of Present Illness Rolando Peters is a 79 y.o. female with history of stage I triple negative breast cancer s/p left mastectomy 05/2011, right-sided breast cancer s/p mastectomy 06/1994 s/p adjuvant chemo/tamoxifen, CKD who presented for evaluation of multiple PET avid pulmonary nodules. Patient reported she follows with oncology Dr. Marcus. Stated that she was referred to Dr. Marcus as she has had progressive weightloss, about 50 pounds since 07/2022. Admitted to a chronic mostly nonproductive cough and postnasaldrip. Reported progressive CRUZ with stairs, denied any shortness of breath at rest. Stated she was diagnosed with exercise-induced asthma several years ago, has an albuterol inhaler which she rarely requires. Denied any hemoptysis, chest pain, night sweats. Initially diagnosed with INGA in 2007, completed PSG and prescribed CPAP with nasal mask, but has not been compliant. 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 Procedure complicated by pneumothorax requiring chest tube. Patient reports feeling well since being discharged. Admitted to blood- tinged sputum postprocedure which has since resolved. Admitted to chronic CRUZ with stairs, denied any shortness of breath at rest, chest pain. 12/04/23 Currently on prednisone 30mg until next week. Stated that she has some sinus drainage due to seasonal allergies, but that her cough has resolved. Was started on Spiriva and noticed improvement of wheezing except on the day that she forgot to take it. Denies any fevers, chills. 03/11/2024 Patient reported that she was hospitalized in January for A-fib with RVR and HFpEF exacerbation. Just completing her steroid taper. Now feeling improved from a respiratory standpoint. Denied any shortness of breath, CRUZ, wheezing, chest tightness. Admitted to some rhinorrhea and postnasal drip. 06/07/2024 Patient reported sinus drainage and productive cough for the past 4 weeks. Continues to have CRUZ with stairs, but now may be having limitation of activity. Admitted to wheezing until she is able to clear phlegm. Denied any fevers, chills, chest tightness, chest pain. S/p ablation last month, continues to have palpitations. Denied any lower extremity swelling and stated her weight has been stable. 07/07/24 Patient reported dysphagia and aspiration with liquids. PastMedical History Past Medical History: Diagnosis Date Arrhythmia Arthritis Asthma Breast cancer (HCC) 1993 Right Breast(Mastectomy) Breast cancer (HCC) 2010 Left Breast(Simple Mastectomy, SLND) Chronic kidney disease COPD (chronic obstructive pulmonary disease) (HCC) Coronary artery disease Diabetes (HCC) Emphysema of lung (HCC) Within last year GERD (gastroesophageal reflux disease) High blood pressure Lung nodule -2022 Occlusion and stenosis of unspecified carotid artery Pure hypercholesterolemia Syncope and collapse 08/29/2022 Past Surgical History Past Surgical History: Procedure Laterality Date BRONCHOSCOPY CARDIAC ELECTROPHYSIOLOGY PROCEDURE N/A 05/05/2024 Performed by Walt Leigh MD at [facility] Cardiac Cath/EP Lab CAROTID ENDARTERECTOMY Right 2008 CATARACT EXTRACTION Bilateral 2006 CHEST TUBE INSERTION Right 10/05/2023 ENDOBRONCHIAL ULTRASOUND EBUS (HISTORICAL) 10/05/2023 LUNG BIOPSY MASTECTOMY Left 2010 simple/reconstruction/gingivagrapht MASTECTOMY Right 1993 reconstruction (TRAM) TOTAL ABDOMINAL HYSTERECTOMY W/ BILATERAL SALPINGOOPHORECTOMY 1998 TUBAL LIGATION 1979 Allergies Allergies Allergen Reactions Isosulfan Blue Anaphylaxis Methylene Blue Sulfa Antibiotics Rash Medications Medication Documentation Review Audit Reviewed by Stephanie Arana DO (Physician) on 07/07/24 at 1434 Medication Order Taking? Sig Documenting Provider Last Dose Status albuterol (Ventolin HFA) 108 (90 Base) MCG/ACT inhaler [id number] Yes Inhale 2 puffs every 4 hours asneeded for wheezing or shortness of breath. Stephanie Arana DO Active apixaban (Eliquis) 5 MG tablet [id number] Yes Take 1 tablet (5 mg) by mouth 2 times daily. SUJATA Enamorado CNP Active carvedilol (Coreg) 12.5 MG tablet [id number] Yes Take 1 tablet (12.5 mg) by mouth in the morning and 1 tablet (12.5 mg) in the evening. Take with meals. SUJATA Negrete CNP Active cholecalciferol (Vitamin D-3) 50 MCG (2000 UT) tablet [id number] Yes Take 4,000 Units by mouth daily.Historical ProviderMD Active ezetimibe (Zetia) 10 MG tablet [id number] Yes Take 1 tablet (10 mg) by mouth in the morning. SUJATA Negrete CNP Active Finerenone (Kerendia) 10 MG tablet [id number] Yes Take 1 tablet by mouth daily. Historical ProviderMD Active fluticasone (Cutivate) 0.05 % cream [id number] Yes Apply topically Daily as needed (itching). Historical ProviderMD Active fluticasone (Flonase) 50 MCG/ACT nasal spray [id number] Yes Administer 1 spray into each nostril daily. Shake gently. Before first use, prime pump. After use, clean tip and replace cap. Historical ProviderMD Active furosemide (Lasix) 20 MG tablet [id number] Yes Take 1 tablet (20 mg) by mouth Daily as needed (weightgain, swelling or shortness of breath). SUJATA Enamorado CNP Active Jentadueto XR 2.5-1000 MG per 24 hr tablet [id number] Yes take 2 tablets by mouth once daily Historical ProviderMD Active lansoprazole (Prevacid) [address] capsule [id number] Yes 1 capsule in the morning. Historical Provider, Active losartan (Cozaar) 100 MG tablet [id number] Yes Take 1 tablet (100 mg) by mouth daily. SUJATA Enamorado CNP Active Multiple Vitamins-Minerals (MULTIPLE VITAMINS/WOMENS PO) [id number] Yes Take by mouth daily. Historical Provider, Active rosuvastatin (Crestor) 10 MG tablet [id number] Yes daily. Historical Provider, Active sertraline (Zoloft) 25 MG tablet [id number] Yes Take 1 tablet (25 mg) by mouth daily. Steven Stewart, DO Active tiotropium (Spiriva Respimat) 2.5 MCG/ACT inhaler [id number] Yes Inhale 2 puffs daily. 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 Substance Use Topics Alcohol use: Yes Alcohol/week: 2.0 - 16.0 standard drinks of alcohol Types: 2 Glasses of wine per week Comment: occ FamilyHistory Family History Problem Relation Name Age of Onset Ovarian cancer Mother 66 Heart attack Father Lucita (Mother) 76 High Blood Pressure Father Lucita (Mother) Macular degeneration Father Lucita (Mother) Cancer Father Lucita (Mother) Ovarian cancer Mother's Sister 45 Other ([id number]) Son neuofibromatosis, BRCA1 positive Neurofibromatosis Son High Blood Pressure Son Cancer Son hairy cell leukemia Breast cancer Cousin 42 +brca Bladder Cancer Cousin 19 Hypertension Sister Angie Kidney disease Sister Angie Hypertension Sister Mireya Sister Kidney disease Sister Mireya Sister Review of Systems Review of Systems Respiratory: Positive for cough. Physical Exam Vitals: 07/07/24 1424 BP: 134/60 BP Location: Left arm Patient Position: Sitting BP Cuff Size: Adult Pulse: 65 Resp: 14 Temp: 36.2 C (97.2 F) TempSrc: Temporal SpO2: 95% Weight: 139 lb (63 kg) Height: 5' 7.01 (1.702 m) Physical Exam Vitals reviewed. Constitutional: General: She is not in acute distress. Appearance: Normal appearance. HENT: Head: Normocephalic and atraumatic. Nose: No congestion. Mouth/Throat: Mouth: Mucous membranes are moist. Eyes: General: No scleral icterus. Extraocular Movements: Extraocular movements intact. Cardiovascular: Rate and Rhythm: Normal rate and regular rhythm. Pulmonary: Effort: Pulmonary effort is normal. No respiratory distress. Breath sounds: Normal breath sounds. No wheezing, rhonchi or rales. Musculoskeletal: General: No swelling. Skin: General: Skin is warm and dry. Neurological: Mental Status: She is alert and oriented to person, place, and time. Psychiatric: Mood and Affect: Mood normal. Labs: Available studies were reviewed Radiology: Personally reviewed and interpreted Chest CT 08/24/2023: Interval development of scattered focal consolidations in the lungs, particularly in the apical left lung lobes as discussed. Recommended short-term follow-up imaging to document resolution. Interval development of new lateral right middle lung lobe nodule with interval enlargement of other previously noted nodules as discussed. Further clinical attention and workup is warranted. Moderate pulmonary emphysema. Coronary and aortic atherosclerosis. Other chronic findings as discussed. PET/CT 09/17/23: 1 cm irregular nodular density within the lateral aspect of the right upper lobe onthe low-dose CT images demonstrates intense FDG accumulation, consistent with malignancy. A 7 mm nodular density within the anteromedial right lower lobe also demonstrates abnormal FDG accumulation, suspicious for malignancy. A streaky density within the left lower lobe on the low-dose CT images demonstrates mild FDG accumulation, less than typically expected for malignancy. A small, somewhat streaky nodular density within the medial aspect of the right lower lobe also demonstrates mild FDG uptake. There is a linear density at the posterior aspect of the left lung apex which demonstrate mild to moderate FDG accumulation which is nonspecific, however the linear configuration of this area is more suggestive of an inflammatory etiology. CT follow-up of these findings is recommended. No evidence of regional edmond or distant metastatic disease. Chest CT 11/25/23: Multiple bilateral areas of lung parenchymal abnormality and increased activity on the previous PET/CT are unchanged. There is a new 6 mm nodular density in the left upper lobe lung. Continued follow-up CT would be helpful. Chest CT 02/24/2024: 1. Interval improvement of anterior left upper lung lobe infiltrates with residual opacities still observed. Follow-up imaging to document resolution. 2. New apical right lower lung lobe and subpleural right middle lung lobe 6 mm nodules. For these nodule characteristics, Fleischner society recommends CT at 3-6 months and then at 18-24 months. 3. Coronary and aortic atherosclerosis. 4. Other chronic and postsurgical findings as discussed. Chest CT 05/27/2024: Interval development of several groundglass and solid pulmonary nodules measuring up to 2.4 cm and 9 mm respectively. In addition, increased size of several previously noted pulmonary nodules. Further clinical evaluation is warranted in this given clinical context. Interval development of right-sided pleural effusion with passive atelectasis. Coronary and aortic atherosclerosis. Other chronic and postsurgical findings as discussed. PFT's: 10/29/2023: Moderate obstruction, significant response to bronchodilators, air trapping, moderately reduced diffusion capacity Assessment/plan: Waxing and waning pulmonary nodules, previously biopsied positive for organizing pneumonia Aspiration A-fib s/p ablation HF Hx breast ca s/p B/L mastectomies COPD/asthma overlap INGA Former smoker -S/p ENB/EBUS 10/05/22. 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 Right middle lobe biopsy also with adjacent acellular material. TBNA with RML with atypical cells, RLL nondiagnostic, LN 7, 4R, 11R negative for malignancy. Pneumonia PCR, bacterial culture, fungal stain/culture, AFB stain/culture, silver stain, Aspergillus galactomannan, beta D glucan negative. Procedure complicated by pneumothorax. -Completed prolonged steroid taper for organizing pneumonia, follow-up imaging with improvement of hypermetabolic areas. -Repeat chest CT images reviewed with patient, discussed stability of some nodules, increase of other nodules, and new groundglass and solid nodules. Additional small right pleural effusion. -Discussed that nodules may be related to organizing pneumonia, though she has also had recent cough, rhinorrhea, and wheezing. Discussed possibly restarting steroids, patient hesitant given concern for side effects. While patient has both new nodules and progression of prior nodules, other nodulessuch as in her left upper lobe are improved since January. Given recent infectious symptoms, treated with course of Augment, short interval chest CT pending. If nodules continue to enlarge, persist, or respiratory symptoms progress, discussed either repeat biopsy versus restarting steroids. -Unclear etiology for initial organizing pneumonia. Medication list reviewed, no clear association.Autoimmune evaluation with WERO, ANCA, RF, anti-CCP, Sjogren's antibody, myositis panel, HP panel negative. Prior infectious evaluation negative. -Reported continued aspiration symptoms. Agreeable to complete MBS. -Pleural effusions previously resolved with diuresis. Discussed small right pleural effusion on repeat imaging. Denied any orthopnea, does not appear to be hypervolemic. Likely too small for thoracentesis, will monitor. -PFTs previously reviewed with patient. C/w spiriva and albuterol prn. -Completed PSG through her cementer oil well, AHI 5.6, discussed mild INGA though appears positional and worse when supine. Ordered for auto CPAP 5-20 cm H2O. Will order follow up overnight pulse ox at next visit -S/p TDAP, influenza vaccine this year. Pending covid vaccine. Previously recommended prevnar 20, RSV. Follow up: Dec after chest CT to review results in office Please seek immediate medical attention for any worsening or worrying new symptoms. Patient education, benefits, risks, and precautions provided. Management plan was discussed in detail and in agreement. All questions or concerns answered to satisfaction and understood. Stephanie Arana DO 6:51 PM 07/07/24 Pulmonary and Critical Care Medicine documented in this [facility]11-21-2024 Instructions* Patient Instructions* Renée Han MA - 07/07/2024 2:15 PM EST YOUR APPOINTMENT TODAY WAS WITH THE [facility] LUNG NODULE CLINIC, COPD CLINIC, PULMONARY AND SLEEP MEDICINE OFFICE. PLEASE CALL OUR OFFICE AT [phone] IF YOU HAVE NOT RECEIVED YOUR TEST RESULTS 7 DAYS AFTER TESTING IS COMPLETED. PLEASE REMEMBER TO REQUEST REFILLS AT YOUR OFFICE VISITS. PHONE/FAX REQUESTS REQUIRE 48-72 HOURS FOR RESPONSE. A FRIENDLY REMINDER COPAYS ARE DUE AT TIME OF SERVICE. THANK YOU. Our Patients Are Important! We want to improve and you can help. After your visit we want you to feel: Listened to, Respected and have your health care explained. You may receive a survey asking you about your visit. Please complete the survey. We will use your feedback to make improvements. COVID-19 VACCINATION INFORMATION: PH. [phone] [email or web address] [facility] Central Scheduling [phone] [facility] Sleep Scheduling [phone] documented in this [facility]11-02-2024 Miscellaneous Notes* Result Encounter Note - SUJATA Enamorado CNP - 06/18/2024 8:30 PM EDT Her sleep study shows mild INGA and they are recommending Auto-PAP. If she is agreeable, I can send order for machine. She can also discuss with pulmonology. Her INGA should be treated due to her Afib. documented in this [facility]11-02-2024 Progress note* Result Encounter Note - SUJATA Enamorado CNP - 06/18/2024 8:30 PM EDT Her sleep study shows mild INGA and they are recommending Auto-PAP. If she is agreeable, I can send order for machine. She can also discuss with pulmonology. Her INGA should be treated due to her Afib. [id number] History of Present illness Narrative* Stephanie Wren DO - 06/07/2024 1:00 PM EDT [facility] [place] [address] [place] [id number] Pulmonary Patient Visit 06/07/2024 Referring Physician: CELIA AL DO Reason for Referral: Lung Nodules 09/29/23 History of Present Illness Rolando Peters is a 79 y.o. female with history of stage I triple negative breast cancer s/p left mastectomy 05/2011, right-sided breast cancer s/p mastectomy 06/1994 s/p adjuvant chemo/tamoxifen, CKD who presented for evaluation of multiple PET avid pulmonary nodules. Patient reported she follows with oncology Dr. Marcus. Stated that she was referred to Dr. Marcus as she has had progressive weightloss, about 50 pounds since 07/2022. Admitted to a chronic mostly nonproductive cough and postnasaldrip. Reported progressive CRUZ with stairs, denied any shortness of breath at rest. Stated she was diagnosed with exercise-induced asthma several years ago, has an albuterol inhaler which she rarely requires. Denied any hemoptysis, chest pain, night sweats. Initially diagnosed with INGA in 2007, completed PSG and prescribed CPAP with nasal mask, but has not been compliant. 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 Procedure complicated by pneumothorax requiring chest tube. Patient reports feeling well since being discharged. Admitted to blood- tinged sputum postprocedure which has since resolved. Admitted to chronic CRUZ with stairs, denied any shortness of breath at rest, chest pain. 12/04/23 Currently on prednisone 30mg until next week. Stated that she has some sinus drainage due to seasonal allergies, but that her cough has resolved. Was started on Spiriva and noticed improvement of wheezing except on the day that she forgot to take it. Denies any fevers, chills. 03/11/2024 Patient reported that she was hospitalized in January for A-fib with RVR and HFpEF exacerbation. Just completing her steroid taper. Now feeling improved from a respiratory standpoint. Denied any shortness of breath, CRUZ, wheezing, chest tightness. Admitted to some rhinorrhea and postnasal drip. 06/07/2024 Patient reported sinus drainage and productive cough for the past 4 weeks. Continues to have CRUZ with stairs, but now may be having limitation of activity. Admitted to wheezing until she is able to clear phlegm. Denied any fevers, chills, chest tightness, chest pain. S/p ablation last month, continues to have palpitations. Denied any lower extremity swelling and stated her weight has been stable. PastMedical History Past Medical History: Diagnosis Date Arrhythmia Arthritis Asthma Breast cancer (HCC) 1993 Right Breast(Mastectomy) Breast cancer (HCC) 2010 Left Breast(Simple Mastectomy, SLND) Chronic kidney disease Coronary artery disease Diabetes (HCC) GERD (gastroesophageal reflux disease) High blood pressure Occlusion and stenosis of unspecified carotid artery Pure hypercholesterolemia Syncope and collapse 08/29/2022 Past Surgical History Past Surgical History: Procedure Laterality Date CARDIAC ELECTROPHYSIOLOGY PROCEDURE N/A 05/05/2024 Performed by Walt Leigh MD at [facility] Cardiac Cath/EP Lab CAROTID ENDARTERECTOMY Right 2008 CATARACT EXTRACTION Bilateral 2006 CHEST TUBE INSERTION Right 10/05/2023 ENDOBRONCHIAL ULTRASOUND EBUS (HISTORICAL) 10/05/2023 MASTECTOMY Left 2010 simple/reconstruction/gingivagrapht MASTECTOMY Right 1993 reconstruction (TRAM) TOTAL ABDOMINAL HYSTERECTOMY W/ BILATERAL SALPINGOOPHORECTOMY 1998 TUBAL LIGATION 1979 Allergies Allergies Allergen Reactions Isosulfan Blue Anaphylaxis Methylene Blue Sulfa Antibiotics Rash Medications Medication Documentation Review Audit Reviewed by Stephanie Arana DO (Physician) on 06/07/24 at 1338 Medication Order Taking? Sig Documenting Provider Last Dose Status albuterol (Ventolin HFA) 108 (90 Base) MCG/ACT inhaler [id number] Yes Inhale 2 puffs every 4 hours asneeded for wheezing or shortness of breath. Stephanie Arana DO Taking Active Discontinued 06/01/24 0923 apixaban (Eliquis) 5 MG tablet [id number] Yes Take 1 tablet (5 mg) by mouth 2 times daily. SUJATA Enamorado CNP Taking Active carvedilol (Coreg) 12.5 MG tablet [id number] Yes Take 1 tablet (12.5 mg) by mouth in the morning and 1 tablet (12.5 mg) in the evening. Take with meals. SUJATA Negrete CNP Taking Active cholecalciferol (Vitamin D-3) 50 MCG (1999 UT) tablet [id number] Yes Take 4,000 Units by mouth daily.Historical Provider, Taking Active ezetimibe (Zetia) 10 MG tablet [id number] Yes Take 1 tablet (10 mg) by mouth in the morning. SUJATA Negrete CNP Taking Active Finerenone (Kerendia) 10 MG tablet [id number] Yes Take 1 tablet by mouth daily. Historical ProviderMD Taking Active fluticasone (Cutivate) 0.05 % cream [id number] Yes Apply topically Daily as needed (itching). Historical Provider, Taking Active fluticasone (Flonase) 50 MCG/ACT nasal spray [id number] Yes Administer 1 spray into each nostril daily. Shake gently. Before first use, prime pump. After use, clean tip and replace cap. Historical Provider, Taking Active furosemide (Lasix) 20 MG tablet [id number] Yes Take 1 tablet (20 mg) by mouth Daily as needed (weightgain, swelling or shortness of breath). SUJATA Enamorado CNP Taking Active Jentadueto XR 2.5-1000 MG per 24 hr tablet [id number] Yes take 2 tablets by mouth once daily Historical Provider, Taking Active lansoprazole (Prevacid) [address] capsule [id number] Yes 1 capsule in the morning. Historical Provider, Taking Active losartan (Cozaar) 100 MG tablet [id number] Yes Take 1 tablet (100 mg) by mouth daily. SUJATA Enamorado CNP Taking Active Discontinued 06/01/24 0921 rosuvastatin (Crestor) 10 MG tablet [id number] Yes daily. Historical Provider, Taking Active sertraline (Zoloft) 25 MG tablet [id number] Yes Take 1 tablet (25 mg) by mouth daily. Steven Stewart, Taking Active tiotropium (Spiriva Respimat) 2.5 MCG/ACT inhaler [id number] Yes Inhale 2 puffs daily. 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 Substance Use Topics Alcohol use: Yes Alcohol/week: 2.0 - 16.0 standard drinks of alcohol Types: 2 Glasses of wine per week Comment: occ FamilyHistory Family History Problem Relation Name Age of Onset Ovarian cancer Mother 66 Heart attack Father Lucita (Mother) 76 High Blood Pressure Father Lucita (Mother) Macular degeneration Father Lucita (Mother) Cancer Father Lucita (Mother) Ovarian cancer Mother's Sister 45 Other ([id number]) Son neuofibromatosis, BRCA1 positive Neurofibromatosis Son High Blood Pressure Son Cancer Son hairy cell leukemia Breast cancer Cousin 42 +brca Bladder Cancer Cousin 19 Hypertension Sister Angie Kidney disease Sister Angie Hypertension Sister Mireya Sister Kidney disease Sister Mireya Sister Review of Systems Review of Systems Constitutional: Negative for chills and fever. HENT: Positive for congestion and postnasal drip. Respiratory: Positive for cough and shortness of breath. Cardiovascular: Positive for palpitations. Negative for leg swelling. Physical Exam Vitals: 06/07/24 1302 06/07/24 1350 BP: 132/50 BP Location: Left arm Patient Position: Sitting BP Cuff Size: Large adult Pulse: 62 SpO2: 93% 97% Weight: 138 lb 9.6 oz (62.9 kg) Height: 5' 7 (1.702 m) Physical Exam Vitals reviewed. Constitutional: General: She is not in acute distress. Appearance: Normal appearance. HENT: Head: Normocephalic and atraumatic. Nose: No congestion. Mouth/Throat: Mouth: Mucous membranes are moist. Eyes: General: No scleral icterus. Extraocular Movements: Extraocular movements intact. Cardiovascular: Rate and Rhythm: Normal rate and regular rhythm. Pulmonary: Effort: Pulmonary effort is normal. No respiratory distress. Breath sounds: Normal breath sounds. No wheezing, rhonchi or rales. Musculoskeletal: General: No swelling or tenderness. Skin: General: Skin is warm and dry. Neurological: Mental Status: She is alert and oriented to person, place, and time. Psychiatric: Mood and Affect: Mood normal. Labs: Available studies were reviewed Radiology: Personally reviewed and interpreted Chest CT 08/24/2023: Interval development of scattered focal consolidations in the lungs, particularly in the apical left lung lobes as discussed. Recommended short-term follow-up imaging to document resolution. Interval development of new lateral right middle lung lobe nodule with interval enlargement of other previously noted nodules as discussed. Further clinical attention and workup is warranted. Moderate pulmonary emphysema. Coronary and aortic atherosclerosis. Other chronic findings as discussed. PET/CT 09/17/23: 1 cm irregular nodular density within the lateral aspect of the right upper lobe onthe low-dose CT images demonstrates intense FDG accumulation, consistent with malignancy. A 7 mm nodular density within the anteromedial right lower lobe also demonstrates abnormal FDG accumulation, suspicious for malignancy. A streaky density within the left lower lobe on the low-dose CT images demonstrates mild FDG accumulation, less than typically expected for malignancy. A small, somewhat streaky nodular density within the medial aspect of the right lower lobe also demonstrates mild FDG uptake. There is a linear density at the posterior aspect of the left lung apex which demonstrate mild to moderate FDG accumulation which is nonspecific, however the linear configuration of this area is more suggestive of an inflammatory etiology. CT follow-up of these findings is recommended. No evidence of regional edmond or distant metastatic disease. Chest CT 11/25/23: Multiple bilateral areas of lung parenchymal abnormality and increased activity on the previous PET/CT are unchanged. There is a new 6 mm nodular density in the left upper lobe lung. Continued follow-up CT would be helpful. Chest CT 02/24/2024: 1. Interval improvement of anterior left upper lung lobe infiltrates with residual opacities still observed. Follow-up imaging to document resolution. 2. New apical right lower lung lobe and subpleural right middle lung lobe 6 mm nodules. For these nodule characteristics, Fleischner society recommends CT at 3-6 months and then at 18-24 months. 3. Coronary and aortic atherosclerosis. 4. Other chronic and postsurgical findings as discussed. Chest CT 05/27/2024: Interval development of several groundglass and solid pulmonary nodules measuring up to 2.4 cm and 9 mm respectively. In addition, increased size of several previously noted pulmonary nodules. Further clinical evaluation is warranted in this given clinical context. Interval development of right-sided pleural effusion with passive atelectasis. Coronary and aortic atherosclerosis. Other chronic and postsurgical findings as discussed. PFT's: 10/29/2023: Moderate obstruction, significant response to bronchodilators, air trapping, moderately reduced diffusion capacity Assessment/plan: Waxing and waning pulmonary nodules, previously biopsied positive for organizing pneumonia A-fib s/p ablation HF Hx breast ca s/p B/L mastectomies COPD/asthma overlap Former smoker -S/p ENB/EBUS 10/05/22. 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 Right middle lobe biopsy also with adjacent acellular material. TBNA with RML with atypical cells, RLL nondiagnostic, LN 7, 4R, 11R negative for malignancy. Pneumonia PCR, bacterial culture, fungal stain/culture, AFB stain/culture, silver stain, Aspergillus galactomannan, beta D glucan negative. Procedure complicated by pneumothorax. -Completed prolonged steroid taper for organizing pneumonia, follow-up imaging with improvement of hypermetabolic areas. -Repeat chest CT images reviewed with patient, discussed stability of some nodules, increase of other nodules, and new groundglass and solid nodules. Additional small right pleural effusion. -Discussed that nodules may be related to organizing pneumonia, though she has also had recent cough, rhinorrhea, and wheezing. Discussed possibly restarting steroids, patient hesitant given concern for side effects. While patient has both new nodules and progression of prior nodules, other nodulessuch as in her left upper lobe are improved since January. Given recent infectious symptoms, will treat with course of Augmentin and repeat short interval chest CT. If nodules continue to enlarge, persist, or respiratory symptoms progress, discussed either repeat biopsy versus restarting steroids. -Unclear etiology for initial organizing pneumonia. Medication list reviewed, no clear association.Ordered for autoimmune evaluation with WERO, ANCA, RF, anti- CCP, Sjogren's antibody, myositis panel,HP panel, CBC and CMP. Prior infectious evaluation negative. -Pleural effusions previously resolved with diuresis. Discussed small right pleural effusion on repeat imaging. Denied any orthopnea, does not appear to be hypervolemic. Likely too small for thoracentesis, will monitor. -PFTs previously reviewed with patient. Patient reported difficulty using Spiriva as she is unable to inhale deeply as she feels that her breath catches, ordered for spacer. C/w albuterol prn. -S/p TDAP, influenza vaccine this year. Pending covid vaccine. Recommended prevnar 20, RSV. Follow up: Jul after chest CT to review results in office Please seek immediate medical attention for any worsening or worrying new symptoms. Patient education, benefits, risks, and precautions provided. Management plan was discussed in detail and in agreement. All questions or concerns answered to satisfaction and understood. Stephanie Arana DO 5:41 PM 06/07/24 Pulmonary and Critical Care Medicine documented in this [facility]10-22-2024 History of Present illness Narrative* Stephanie Arana DO - 06/07/2024 1:00 PM EDT [facility] [place] [address] [place], [place] [id number] Pulmonary Patient Visit 06/07/2024 Referring Physician: CELIA AL DO Reason for Referral: Lung Nodules 09/29/23 History of Present Illness Rolando Peters is a 79 y.o. female with history of stage I triple negative breast cancer s/p left mastectomy 05/2011, right-sided breast cancer s/p mastectomy 06/1994 s/p adjuvant chemo/tamoxifen, CKD who presented for evaluation of multiple PET avid pulmonary nodules. Patient reported she follows with oncology Dr. Marcus. Stated that she was referred to Dr. Marcus as she has had progressive weightloss, about 50 pounds since 07/2022. Admitted to a chronic mostly nonproductive cough and postnasaldrip. Reported progressive CRUZ with stairs, denied any shortness of breath at rest. Stated she was diagnosed with exercise-induced asthma several years ago, has an albuterol inhaler which she rarely requires. Denied any hemoptysis, chest pain, night sweats. Initially diagnosed with INGA in 2007, completed PSG and prescribed CPAP with nasal mask, but has not been compliant. 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 Procedure complicated by pneumothorax requiring chest tube. Patient reports feeling well since being discharged. Admitted to blood- tinged sputum postprocedure which has since resolved. Admitted to chronic CRUZ with stairs, denied any shortness of breath at rest, chest pain. 12/04/23 Currently on prednisone 30mg until next week. Stated that she has some sinus drainage due to seasonal allergies, but that her cough has resolved. Was started on Spiriva and noticed improvement of wheezing except on the day that she forgot to take it. Denies any fevers, chills. 03/11/2024 Patient reported that she was hospitalized in January for A-fib with RVR and HFpEF exacerbation. Just completing her steroid taper. Now feeling improved from a respiratory standpoint. Denied any shortness of breath, CRUZ, wheezing, chest tightness. Admitted to some rhinorrhea and postnasal drip. 06/07/2024 Patient reported sinus drainage and productive cough for the past 4 weeks. Continues to have CRUZ with stairs, but now may be having limitation of activity. Admitted to wheezing until she is able to clear phlegm. Denied any fevers, chills, chest tightness, chest pain. S/p ablation last month, continues to have palpitations. Denied any lower extremity swelling and stated her weight has been stable. PastMedical History Past Medical History: Diagnosis Date Arrhythmia Arthritis Asthma Breast cancer (HCC) 1993 Right Breast(Mastectomy) Breast cancer (HCC) 2010 Left Breast(Simple Mastectomy, SLND) Chronic kidney disease Coronary artery disease Diabetes (HCC) GERD (gastroesophageal reflux disease) High blood pressure Occlusion and stenosis of unspecified carotid artery Pure hypercholesterolemia Syncope and collapse 08/29/2022 Past Surgical History Past Surgical History: Procedure Laterality Date CARDIAC ELECTROPHYSIOLOGY PROCEDURE N/A 05/05/2024 Performed by Walt Leigh MD at [facility] Cardiac Cath/EP Lab CAROTID ENDARTERECTOMY Right 2008 CATARACT EXTRACTION Bilateral 2006 CHEST TUBE INSERTION Right 10/05/2023 ENDOBRONCHIAL ULTRASOUND EBUS (HISTORICAL) 10/05/2023 MASTECTOMY Left 2010 simple/reconstruction/gingivagrapht MASTECTOMY Right 1993 reconstruction (TRAM) TOTAL ABDOMINAL HYSTERECTOMY W/ BILATERAL SALPINGOOPHORECTOMY 1998 TUBAL LIGATION 1979 Allergies Allergies Allergen Reactions Isosulfan Blue Anaphylaxis Methylene Blue Sulfa Antibiotics Rash Medications Medication Documentation Review Audit Reviewed by Stephanie Arana DO (Physician) on 06/07/24 at 1338 Medication Order Taking? Sig Documenting Provider Last Dose Status albuterol (Ventolin HFA) 108 (90 Base) MCG/ACT inhaler [id number] Yes Inhale 2 puffs every 4 hours asneeded for wheezing or shortness of breath. Stephanie Arana DO Taking Active Discontinued 06/01/24 0923 apixaban (Eliquis) 5 MG tablet [id number] Yes Take 1 tablet (5 mg) by mouth 2 times daily. SUJATA Enamorado CNP Taking Active carvedilol (Coreg) 12.5 MG tablet [id number] Yes Take 1 tablet (12.5 mg) by mouth in the morning and 1 tablet (12.5 mg) in the evening. Take with meals. SUJATA Negrete CNP Taking Active cholecalciferol (Vitamin D-3) 50 MCG (2000 UT) tablet [id number] Yes Take 4,000 Units by mouth daily.Historical Provider, Taking Active ezetimibe (Zetia) 10 MG tablet [id number] Yes Take 1 tablet (10 mg) by mouth in the morning. SUJATA Negrete CNP Taking Active Finerenone (Kerendia) 10 MG tablet [id number] Yes Take 1 tablet by mouth daily. Historical Provider, Taking Active fluticasone (Cutivate) 0.05 % cream [id number] Yes Apply topically Daily as needed (itching). Historical Provider, Taking Active fluticasone (Flonase) 50 MCG/ACT nasal spray [id number] Yes Administer 1 spray into each nostril daily. Shake gently. Before first use, prime pump. After use, clean tip and replace cap. Historical Provider, Taking Active furosemide (Lasix) 20 MG tablet [id number] Yes Take 1 tablet (20 mg) by mouth Daily as needed (weightgain, swelling or shortness of breath). SUJATA Enamorado CNP Taking Active Jentadueto XR 2.5-1000 MG per 24 hr tablet [id number] Yes take 2 tablets by mouth once daily Historical Provider, Taking Active lansoprazole (Prevacid) [address] capsule [id number] Yes 1 capsule in the morning. Historical Provider, Taking Active losartan (Cozaar) 100 MG tablet [id number] Yes Take 1 tablet (100 mg) by mouth daily. SUJATA Enamorado [employer]IST Taking Active Discontinued 06/01/24 0921 rosuvastatin (Crestor) 10 MG tablet [id number] Yes daily. Historical Provider, Taking Active sertraline (Zoloft) 25 MG tablet [id number] Yes Take 1 tablet (25 mg) by mouth daily. Steven Mortensenkevin Stewart, DO Taking Active tiotropium (Spiriva Respimat) 2.5 MCG/ACT inhaler [id number] Yes Inhale 2 puffs daily. Stephanieindio Arana, DO Taking Active Vascepa 1 g capsule [id number] Yes TAKE 2 CAPSULES BY MOUTH 2 TIMES DAILY Kristy Doran, DEWATERER OPERATOR - WINDOWS TECHNICAL SPECIALIST Taking Active Social History Social History Tobacco Use Smoking status: Former Current packs/day: 0.00 Average packs/day: 1 pack/day for 30.0 years (30.0 ttl pk-yrs) Types: Cigarettes Start date: 08/17/1963 Quit date: 08/17/1993 Years since quittin.8 Smokeless tobacco: Never 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: , lives in [facility], retired [employer], 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 Substance Use Topics Alcohol use: Yes Alcohol/week: 2.0 - 16.0 standard drinks of alcohol Types: 2 Glasses of wine per week Comment: occ FamilyHistory Family History Problem Relation Name Age of Onset Ovarian cancer Mother 66 Heart attack Father Lucita (Mother) 76 High Blood Pressure Father Lucita (Mother) Macular degeneration Father Lucita (Mother) Cancer Father Lucita (Mother) Ovarian cancer Mother's Sister 45 Other ([id number]) Son neuofibromatosis, BRCA1 positive Neurofibromatosis Son High Blood Pressure Son Cancer Son hairy cell leukemia Breast cancer Cousin 42 +brca Bladder Cancer Cousin 19 Hypertension Sister Angie Kidney disease Sister Angie Hypertension Sister Mireya Sister Kidney disease Sister Mireya Sister Review of Systems Review of Systems Constitutional: Negative for chills and fever. HENT: Positive for congestion and postnasal drip. Respiratory: Positive for cough and shortness of breath. Cardiovascular: Positive for palpitations. Negative for leg swelling. Physical Exam Vitals: 06/07/24 1302 06/07/24 1350 BP: 132/50 BP Location: Left arm Patient Position: Sitting BP Cuff Size: Large adult Pulse: 62 SpO2: 93% 97% Weight: 138 lb 9.6 oz (62.9 kg) Height: 5' 7 (1.702 m) Physical Exam Vitals reviewed. Constitutional: General: She is not in acute distress. Appearance: Normal appearance. HENT: Head: Normocephalic and atraumatic. Nose: No congestion. Mouth/Throat: Mouth: Mucous membranes are moist. Eyes: General: No scleral icterus. Extraocular Movements: Extraocular movements intact. Cardiovascular: Rate and Rhythm: Normal rate and regular rhythm. Pulmonary: Effort: Pulmonary effort is normal. No respiratory distress. Breath sounds: Normal breath sounds. No wheezing, rhonchi or rales. Musculoskeletal: General: No swelling or tenderness. Skin: General: Skin is warm and dry. Neurological: Mental Status: She is alert and oriented to person, place, and time. Psychiatric: Mood and Affect: Mood normal. Labs: Available studies were reviewed Radiology: Personally reviewed and interpreted Chest CT 08/24/2023: Interval development of scattered focal consolidations in the lungs, particularly in the apical left lung lobes as discussed. Recommended short-term follow-up imaging to document resolution. Interval development of new lateral right middle lung lobe nodule with interval enlargement of other previously noted nodules as discussed. Further clinical attention and workup is warranted. Moderate pulmonary emphysema. Coronary and aortic atherosclerosis. Other chronic findings as discussed. PET/CT 09/17/23: 1 cm irregular nodular density within the lateral aspect of the right upper lobe onthe low-dose CT images demonstrates intense FDG accumulation, consistent with malignancy. A 7 mm nodular density within the anteromedial right lower lobe also demonstrates abnormal FDG accumulation, suspicious for malignancy. A streaky density within the left lower lobe on the low-dose CT images demonstrates mild FDG accumulation, less than typically expected for malignancy. A small, somewhat streaky nodular density within the medial aspect of the right lower lobe also demonstrates mild FDG uptake. There is a linear density at the posterior aspect of the left lung apex which demonstrate mild to moderate FDG accumulation which is nonspecific, however the linear configuration of this area is more suggestive of an inflammatory etiology. CT follow-up of these findings is recommended. No evidence of regional edmond or distant metastatic disease. Chest CT 11/25/23: Multiple bilateral areas of lung parenchymal abnormality and increased activity on the previous PET/CT are unchanged. There is a new 6 mm nodular density in the left upper lobe lung. Continued follow-up CT would be helpful. Chest CT 02/24/2024: 1. Interval improvement of anterior left upper lung lobe infiltrates with residual opacities still observed. Follow-up imaging to document resolution. 2. New apical right lower lung lobe and subpleural right middle lung lobe 6 mm nodules. For these nodule characteristics, Fleischner society recommends CT at 3-6 months and then at 18-24 months. 3. Coronary and aortic atherosclerosis. 4. Other chronic and postsurgical findings as discussed. Chest CT 05/27/2024: Interval development of several groundglass and solid pulmonary nodules measuring up to 2.4 cm and 9 mm respectively. In addition, increased size of several previously noted pulmonary nodules. Further clinical evaluation is warranted in this given clinical context. Interval development of right-sided pleural effusion with passive atelectasis. Coronary and aortic atherosclerosis. Other chronic and postsurgical findings as discussed. PFT's: 10/29/2023: Moderate obstruction, significant response to bronchodilators, air trapping, moderately reduced diffusion capacity Assessment/plan: Waxing and waning pulmonary nodules, previously biopsied positive for organizing pneumonia A-fib s/p ablation HF Hx breast ca s/p B/L mastectomies COPD/asthma overlap Former smoker -S/p ENB/EBUS 10/05/22. 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 Right middle lobe biopsy also with adjacent acellular material. TBNA with RML with atypical cells, RLL nondiagnostic, LN 7, 4R, 11R negative for malignancy. Pneumonia PCR, bacterial culture, fungal stain/culture, AFB stain/culture, silver stain, Aspergillus galactomannan, beta D glucan negative. Procedure complicated by pneumothorax. -Completed prolonged steroid taper for organizing pneumonia, follow-up imaging with improvement of hypermetabolic areas. -Repeat chest CT images reviewed with patient, discussed stability of some nodules, increase of other nodules, and new groundglass and solid nodules. Additional small right pleural effusion. -Discussed that nodules may be related to organizing pneumonia, though she has also had recent cough, rhinorrhea, and wheezing. Discussed possibly restarting steroids, patient hesitant given concern for side effects. While patient has both new nodules and progression of prior nodules, other nodulessuch as in her left upper lobe are improved since January. Given recent infectious symptoms, will treat with course of Augmentin and repeat short interval chest CT. If nodules continue to enlarge, persist, or respiratory symptoms progress, discussed either repeat biopsy versus restarting steroids. -Unclear etiology for initial organizing pneumonia. Medication list reviewed, no clear association.Ordered for autoimmune evaluation with WERO, ANCA, RF, anti- CCP, Sjogren's antibody, myositis panel,HP panel, CBC and CMP. Prior infectious evaluation negative. -Patient reported episodes of possible aspiration. Called to discuss MBSS after office visit, patient deferred for now. Would like to rediscuss at next visit. -Pleural effusions previously resolved with diuresis. Discussed small right pleural effusion on repeat imaging. Denied any orthopnea, does not appear to be hypervolemic. Likely too small for thoracentesis, will monitor. -PFTs previously reviewed with patient. Patient reported difficulty using Spiriva as she is unable to inhale deeply as she feels that her breath catches, ordered for spacer. C/w albuterol prn. -S/p TDAP, influenza vaccine this year. Pending covid vaccine. Recommended prevnar 20, RSV. Follow up: Dec after chest CT to review results in office Please seek immediate medical attention for any worsening or worrying new symptoms. Patient education, benefits, risks, and precautions provided. Management plan was discussed in detail and in agreement. All questions or concerns answered to satisfaction and understood. Stephanie Arana DO 5:41 PM 06/07/24 Pulmonary and Critical Care Medicine documented in this encounterSSt. John of God [id number] Telephone encounter Note* Telephone Encounter - Kim Rivas - 06/01/2024 4:02 PM EDT Received call from Keren from [employer] [facility]. She reports she took patients BP twice today bothtimes 170/50 (left arm) patient did inform her she had OV with KM today. She wanted office to be aware of BP. [facility] [id number] Miscellaneous Notes* Telephone Encounter - Kim Esquivel Rivas - 06/01/2024 4:02 PM EDT Received call from Keren from [facility]. She reports she took patients BP twice today bothtimes 170/50 (left arm) patient did inform her she had OV with KM today. She wanted office to be aware of BP. documented in this encounterSSt. John of God [id number] Evaluation + Plan note* Assessment & Plan Note - SUJATA Najera CNP - 06/01/2024 9:41 AM EDTAssociated Problem(s): Essential hypertension Elevated but has history of hypotension/orthostasis. Taken off amlodipine a few months ago. Will make no changes. [facility] [id number] Miscellaneous Notes* Assessment & Plan Note - SUJATA Najera CNP - 06/01/2024 9:41 AM EDTAssociated Problem(s): Essential hypertension Elevated but has history of hypotension/orthostasis. Taken off amlodipine a few months ago. Will make no changes. * Assessment & Plan Note - SUJATA Najera CNP - 06/01/2024 9:40 AM EDTAssociated Problem(s): Persistent atrial fibrillation (HCC) She is s/p PVI + PWI + ablation of atypical flutter with mitral line last month. She is maintainingnormal rhythm. Will stop amiodarone today. Continue Eliquis lifelong given high stroke risk. 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 Her last EF was 48%. She appears euvolemic today. Now just using lasixPRN. Plan to repeat echo prior to next visit to reassess EF. documented in this encounterSSt. John of God [id number] Evaluation + Plan note* Assessment & Plan Note - SUJATA Najera CNP - 06/01/2024 9:40 AM EDTAssociated Problem(s): Persistent atrial fibrillation (HCC) She is s/p PVI + PWI + ablation of atypical flutter with mitral line last month. She is maintainingnormal rhythm. Will stop amiodarone today. Continue Eliquis lifelong given high stroke risk. 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 Her last EF was 48%. She appears euvolemic today. Now just using lasixPRN. Plan to repeat echo prior to next visit to reassess EF. [facility] [id number] History of Present illness Narrative* SUJATA Najera CNP - 06/01/2024 9:00 AM EDT Images from the original note were not included. [facility] - [address] [id number] Dept: [phone] Dept Visit type: Established : 1945 Reason for Visit: 1 Month Follow Up Assessment and Plan 1. Persistent atrial fibrillation (HCC) Assessment & Plan: She is s/p PVI + PWI + ablation of atypical flutter with mitral line last month. She is maintainingnormal rhythm. Will stop amiodarone today. Continue Eliquis lifelong given high stroke risk. Orders: - Transthoracic echocardiogram (TTE) complete with contrast, bubble, strain, and 3D PRN - ECG 12 lead - CLINIC PERFORMED 2. 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 Her last EF was 48%. She appears euvolemic today. Now just using lasixPRN. Plan to repeat echo prior to next visit to reassess EF. Orders: - Transthoracic echocardiogram (TTE) complete with contrast, bubble, strain, and 3D PRN - ECG 12 lead - CLINIC PERFORMED 3. Essential hypertension Assessment & Plan: Elevated but has history of hypotension/orthostasis. Taken off amlodipine a few months ago. Will make no changes. Orders: - Transthoracic echocardiogram (TTE) complete with contrast, bubble, strain, and 3D PRN - ECG 12 lead - CLINIC PERFORMED Follow up in about 2 months (around 08/01/2024) for Dr. Leigh. Casey Peters is a 79 y.o. female with a history of carotid disease s/p CEA, breast CA, CKD stage II, tobacco abuse, COPD, HTN, HFmrEF, DM2 and PAF (on Eliquis, amio) s/p PVI + PWI, ablation of atypical flutter with anterior mitral line 04/2024. She was recently admitted with cardiogenic shock in thesetting of AF with RVR. She is on amiodarone. LFTs were elevated at discharge, which was thought lidia due to the shock. She spontaneously converted to sinus rhythm on amiodarone. She underwent PVI/PWI/atypical flutter with mitral line with Dr. Leigh 04/2024. She presents today for 1 month follow up. Since her ablation, she has felt ok but notes that she still fatigues easily and gets short of breath with activity. She notes an occasional palpitation that radiates up to her throat, no sustained palpitations. No bleeding issues on Eliquis. No chest pain. Occasional dizziness with position changes. EKG today on my review shows sinus bradycardia, 55 bpm. Her chadsvasc score is 7 for agex2, female, vascular disease, HTN, DM2, CHF. Review of Systems Constitutional: Positive for fatigue. HENT: Negative for nosebleeds. Respiratory: Positive for shortness of breath. Cardiovascular: Negative for chest pain, palpitations and leg swelling. Gastrointestinal: Negative for blood in stool. Genitourinary: Negative for hematuria. Neurological: Positive for light-headedness (occasional with position changes). Negative for syncope. Hematological: Bruises/bleeds easily. Allergies Allergen Reactions Isosulfan Blue Anaphylaxis Methylene Blue Sulfa Antibiotics Rash Outpatient Medications Prior to Visit Medication Sig Dispense Refill albuterol (Ventolin HFA) 108 (90 Base) MCG/ACT inhaler Inhale 2 puffs every 4 hours as needed for wheezing or shortness of breath. 8 g 11 apixaban (Eliquis) 5 MG tablet Take 1 tablet (5 mg) by mouth 2 times daily. 180 tablet 1 carvedilol (Coreg) 12.5 MG tablet Take 1 tablet (12.5 mg) by mouth in the morning and 1 tablet (12.5 mg) in the evening. Take with meals. 180 tablet 1 cholecalciferol (Vitamin D-3) 50 MCG (2000 UT) tablet Take 4,000 Units by mouth daily. ezetimibe (Zetia) 10 MG tablet Take 1 tablet (10 mg) by mouth in the morning. 90 tablet 2 Finerenone (Kerendia) 10 MG tablet Take 1 tablet by mouth daily. fluticasone (Cutivate) 0.05 % cream Apply topically Daily as needed (itching). fluticasone (Flonase) 50 MCG/ACT nasal spray Administer 1 spray into each nostril daily. Shake gently. Before first use, prime pump. After use, clean tip and replace cap. furosemide (Lasix) 20 MG tablet Take 1 tablet (20 mg) by mouth Daily as needed (weight gain, swelling or shortness of breath). Jentadueto XR 2.5-1000 MG per 24 hr tablet take 2 tablets by mouth once daily lansoprazole (Prevacid) [address] capsule 1 capsule in the morning. losartan (Cozaar) 100 MG tablet Take 1 tablet (100 mg) by mouth daily. 90 tablet 1 rosuvastatin (Crestor) 10 MG tablet daily. sertraline (Zoloft) 25 MG tablet Take 1 tablet (25 mg) by mouth daily. 30 tablet 11 tiotropium (Spiriva Respimat) 2.5 MCG/ACT inhaler Inhale 2 puffs daily. 1 each 11 Vascepa 1 g capsule TAKE 2 CAPSULES BY MOUTH 2 TIMES DAILY 360 capsule 3 amiodarone (Pacerone) 200 MG tablet Take 1 tablet (200 mg) by mouth daily. Do not start before 2023. 90 tablet 1 predniSONE (Deltasone) 10 MG tablet Take 10 mg by mouth daily. No facility-administered medications prior to visit. Past Medical History: Diagnosis Date Arrhythmia Arthritis Asthma Breast cancer (HCC) 1993 Right Breast(Mastectomy) Breast cancer (HCC) 2010 Left Breast(Simple Mastectomy, SLND) Chronic kidney disease Coronary artery disease Diabetes (HCC) GERD (gastroesophageal reflux disease) High blood pressure Occlusion and stenosis of unspecified carotid artery Pure hypercholesterolemia Syncope and collapse 08/29/2022 Social History Tobacco Use Smoking status: Former Current packs/day: 0.00 Average packs/day: 1 pack/day for 30.0 years (30.0 ttl pk-yrs) Types: Cigarettes Start date: 08/17/1963 Quit date: 08/17/1993 Years since quittin.8 Smokeless tobacco: Never 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: , 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[facility], 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, 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 Substance Use Topics Alcohol use: Yes Alcohol/week: 2.0 - 16.0 standard drinks of alcohol Types: 2 Glasses of wine per week Comment: occ Past Surgical History: Procedure Laterality Date CARDIAC ELECTROPHYSIOLOGY PROCEDURE N/A 05/05/2024 Performed by Walt Leigh MD at [facility] Cardiac Cath/EP Lab CAROTID ENDARTERECTOMY Right 2008 CATARACT EXTRACTION Bilateral 2006 CHEST TUBE INSERTION Right 10/05/2023 ENDOBRONCHIAL ULTRASOUND EBUS (HISTORICAL) 10/05/2023 MASTECTOMY Left 2010 simple/reconstruction/gingivagrapht MASTECTOMY Right 1993 reconstruction (TRAM) TOTAL ABDOMINAL HYSTERECTOMY W/ BILATERAL SALPINGOOPHORECTOMY 1998 TUBAL LIGATION 1979 Family History Problem Relation Name Age of Onset Ovarian cancer Mother 66 Heart attack Father Lucita (Mother) 76 High Blood Pressure Father Lucita (Mother) Macular degeneration Father Lucita (Mother) Cancer Father Lucita (Mother) Ovarian cancer Mother's Sister 45 Other ([address]) Son neuofibromatosis, BRCA1 positive Neurofibromatosis Son High Blood Pressure Son Cancer Son hairy cell leukemia Breast cancer Cousin 42 +brca Bladder Cancer Cousin 19 Hypertension Sister Angie Kidney disease Sister Angie Hypertension Sister Mireya Sister Kidney disease Sister Mireya Sister Objective Vitals: 06/01/24 0850 06/01/24 0941 BP: (!) 168/48 (!) 164/44 BP Location: Left arm Left arm Patient Position: Sitting Sitting BP Cuff Size: Adult Pulse: 55 SpO2: 95% Weight: 139 lb (63 kg) Height: 5' 7 (1.702 m) Physical Exam Vitals reviewed. Constitutional: General: She is not in acute distress. Appearance: Normal appearance. HENT: Head: Normocephalic and atraumatic. Cardiovascular: Rate and Rhythm: Normal rate and regular rhythm. Heart sounds: Murmur heard. No friction rub. No gallop. Pulmonary: Effort: Pulmonary effort is normal. Breath sounds: Normal breath sounds. No wheezing, rhonchi or rales. Skin: General: Skin is warm and dry. Neurological: Mental Status: She is alert and oriented to person, place, and time. Data Reviewed and Summarized EF BP Date Value Ref Range Status 01/22/2024 57 55 - 100 % Final EF Physician Date Value Ref Range Status 01/22/2024 48 % Final Review of tests/labs done/ordered within my specialty: EKG in office: See HPI Echocardiogram 01/2024 Left Ventricle: Left ventricle size is normal. Normal wall thickness. Normal left ventricular systolic function. EF by visual approximation is 48%. Global longitudinal strain is reduced with a value of -14.7%. Normal wall motion. Grade III diastolic dysfunction with increased LAP. Right Ventricle: Right ventricle size is normal. Low normal systolic function. RV Peak S' is 8 cm/s. Aortic Valve: Trileaflet. Cusp sclerosis. Mild (1+) regurgitation. Aortic slcerosis. AV mean gradient is 7 mmHg. AV peak gradient is 12 mmHg. AV peak velocity is 1.7 m/s. Mitral Valve: Moderately thickened leaflets. Moderately calcified leaflets. Mild annular calcification. Moderate (2+) regurgitation with a posterior directed jet. No stenosis noted. Tricuspid Valve: Valve structure is normal. Mild (1+) regurgitation. Mild to moderately elevated RVSP. RVSP is 46 mmHg. Left Atrium: Left atrium is moderately dilated. Right Atrium: Right atrium size is normal. Aorta: Normal sized sinuses of Valsalva and ascending aorta. Pericardium: No pericardial effusion. IVC/SVC: IVC diameter is dilated and decreases greater than 50% during inspiration; therefore the estimated right atrial pressure is intermediate (~8 mmHg). SUJATA Abebe CNP documented in this encounterSSt. John of God [id number] Telephone encounter Note* Telephone Encounter - Sathish Whitaker [facility] - 05/15/2024 2:59 PM EDT Spoke with patient upon setting up her refills, Rolando admits that often she forgets her morning dose of Vascepa since frequently she does not eat in the morning, and understands Vascepa should be taken with food. To help improve adherence patient will try to eat a small meal in the morning. Despite predominanceof once daily dosing, patient's lipids including her triglycerides seem to be fairly well controlled. Nevertheless, patient assured me she will work to improve her adherence to Vascepa moving forward. I confirmed Rolando does not seem to have any issues with adherence to her other medications. Encouraged patient to reach out with any follow up questions moving forward. Thanks! Angel [facility] [id number] Miscellaneous Notes* Telephone Encounter - Sathish Whitaker [facility] - 05/15/2024 2:59 PM EDT Spoke with patient upon setting up her refills, Rolando admits that often she forgets her morning dose of Vascepa since frequently she does not eat in the morning, and understands Vascepa should be taken with food. To help improve adherence patient will try to eat a small meal in the morning. Despite predominanceof once daily dosing, patient's lipids including her triglycerides seem to be fairly well controlled. Nevertheless, patient assured me she will work to improve her adherence to Vascepa moving forward. I confirmed Rolando does not seem to have any issues with adherence to her other medications. Encouraged patient to reach out with any follow up questions moving forward. Thanks! Angel documented in this encounterSSt. John of God [id number] Telephone encounter Note* Telephone Encounter - Fredo Guzman RN - 05/12/2024 1:52 PM EDT PC to pt. She was informed and verbalized understanding. [facility] [id number] Miscellaneous Notes* Telephone Encounter - Fredo Guzman RN - 05/12/2024 1:52 PM EDT PC to pt. She was informed and verbalized understanding. * Telephone Encounter - SUJATA Najera CNP - 05/12/2024 1:45 PM EDT Normal to have a small knot at groin site. Ecchymosis also normal. As long as knot not getting bigger in size or painful, just monitor at this time. Sometimes can take weeks to fully go away. * Telephone Encounter - Fredo Guzman RN - 05/12/2024 1:27 PM EDT PC to pt. She had an ablation on 05/05/24. She resumed her Eliquis that evening as directed. She c/oa lump on R leg at ablation site. She notices it when she extends her leg only. It has improved from earlier. She c/o ecchymosis but denies, edema, coolness, warmth, redness, active bleeding, numbness, or pain in RLE. She has very infrequent burning at ablation site that lasts a second. She denies CP, near syncope, and syncope. She has rare palpitations. She has intermittent, unchanged SOB withexertion that seems to be better today. She c/o B feet edema. She took Lasix 20 mg at 3 pm yesterday and at 9:30 am this morning. She has noticed appropriate increase in urination sp diuretic but stat es her feet look puffy by the toes still. Pt ate chicken thighs and added more salt than usual yesterday. Reviewed a low sodium diet and leg elevation as tolerated. BP today 169/53. No HR was recorded. She states her BP cuff has been checked by home nursing and runs 11 points higher than the nurses reading. She also c/o sinus congestion. Denies fever. Pt stated she had a feeling of impending doom for 2 days but that is also better today. I am relaxing and feel better. * Telephone Encounter - Kim Rivas - 05/12/2024 1:04 PM EDT Patient called in stating she has noticed a knot at ablation site. Patient noticed when laying downit is very noticeable. She reports its about the size of a hazelnut. If patient sits up right, can not see the knot. Please advise. Patient underwent PVI 05-05-24. documented in this encounterSSt. [facility] [id number] Telephone encounter Note* Telephone Encounter - SUJATA Najera CNP - 05/12/2024 1:45 PM EDT Normal to have a small knot at groin site. Ecchymosis also normal. As long as knot not getting bigger in size or painful, just monitor at this time. Sometimes can take weeks to fully go away. [facility] [id number] Telephone encounter Note* Telephone Encounter - Fredo Guzman RN - 05/12/2024 1:27 PM EDT PC to pt. She had an ablation on 05/05/24. She resumed her Eliquis that evening as directed. She c/oa lump on R leg at ablation site. She notices it when she extends her leg only. It has improved from earlier. She c/o ecchymosis but denies, edema, coolness, warmth, redness, active bleeding, numbness, or pain in RLE. She has very infrequent burning at ablation site that lasts a second. She denies CP, near syncope, and syncope. She has rare palpitations. She has intermittent, unchanged SOB withexertion that seems to be better today. She c/o B feet edema. She took Lasix 20 mg at 3 pm yesterday and at 9:30 am this morning. She has noticed appropriate increase in urination sp diuretic but stat es her feet look puffy by the toes still. Pt ate chicken thighs and added more salt than usual yesterday. Reviewed a low sodium diet and leg elevation as tolerated. BP today 169/53. No HR was recorded. She states her BP cuff has been checked by home nursing and runs 11 points higher than the nurses reading. She also c/o sinus congestion. Denies fever. Pt stated she had a feeling of impending doom for 2 days but that is also better today. I am relaxing and feel better. [id number] Telephone encounter Note* Telephone Encounter - Kim Rivas - 05/12/2024 1:04 PM EDT Patient called in stating she has noticed a knot at ablation site. Patient noticed when laying downit is very noticeable. She reports its about the size of a hazelnut. If patient sits up right, can not see the knot. Please advise. Patient underwent PVI 05-05-24. [id number] Telephone encounter Note* Telephone Encounter - SUJATA Najera CNP - 05/09/2024 10:39 AM EDT Thanks, nothing different to do at this time if she is back in normal rhythm. [facility] [id number] Miscellaneous Notes* Telephone Encounter - SUJATA Najera CNP - 05/09/2024 10:39 AM EDT Thanks, nothing different to do at this time if she is back in normal rhythm. * Telephone Encounter - Tawny Raymond RN - 05/09/2024 10:35 AM EDT Spoke with pt nervous she went into PAF yesterday 10 pm lasting one hour, very SOB during this highest HR 101 had some neck discomfort and a pulling sensation in her tummy like prior PAF episodes No swelling no weight gains Today fels a little tired no SOB BP 172/99 HR 69 has just taken her am meds Reassurance provided about blanking period FYI to team PVI was 05/05/24 FU 06/01 * Telephone Encounter - Kim Rivas - 05/09/2024 10:21 AM EDT Patient underwent ablation on 05-05-24. Yesterday 05-08-24 she was in and out of afib. Patient statesshe almost called a squad. She states her HR 101, labor breathing, and neck pain. Patient reports having to sit up to breathe. BP 172/99. This morning her HR was 69. No longer in afib. Please advise and call patient back [phone] documented in this [facility]09-23-2024 Telephone encounter Note* Telephone Encounter - Tawny Raymond RN - 05/09/2024 10:35 AM EDT Spoke with pt nervous she went into PAF yesterday 10 pm lasting one hour, very SOB during this highest HR 101 had some neck discomfort and a pulling sensation in her tummy like prior PAF episodes No swelling no weight gains Today fels a little tired no SOB BP 172/99 HR 69 has just taken her am meds Reassurance provided about blanking period FYI to team PVI was 05/05/24 FU 06/01 [facility] [id number] Telephone encounter Note* Telephone Encounter - Kim Rivas - 05/09/2024 10:21 AM EDT Patient underwent ablation on 05-05-24. Yesterday 05-08-24 she was in and out of afib. Patient statesshe almost called a squad. She states her HR 101, labor breathing, and neck pain. Patient reports having to sit up to breathe. BP 172/99. This morning her HR was 69. No longer in afib. Please advise and call patient back [phone] [facility] [id number] Telephone encounter Note* Telephone Encounter - SUJATA Najera CNP - 05/06/2024 11:54 AM EDT Noted, agree. [facility] [id number] Miscellaneous Notes* Telephone Encounter - SUJATA Najera CNP - 05/06/2024 11:54 AM EDT Noted, agree. * Telephone Encounter - Tana Zavaleta RN - 05/06/2024 9:56 AM EDT Called patient back and I told her to remove dressing to see if it is still actively oozing. Educated patient if it still oozing to lay down and apply pressure for 10-15 minutes to see if it stops, apply new dressing. She also mentions she had a cough she thinks brought it on, educated to hold groin site when coughing Call office if does not help * Telephone Encounter - Kim Rivas - 05/06/2024 9:38 AM EDT Patient called in, she had ablation yesterday (05-05-24) Patient woke up today, with her gauze saturated. She states it looks pink, is not sure if she should take off as she was instructed to today. Patient concerned if she should be seen? Please advise. documented in this encounterSSt. John of God [id number] Telephone encounter Note* Telephone Encounter - Tana Zavaleta RN - 05/06/2024 9:56 AM EDT Called patient back and I told her to remove dressing to see if it is still actively oozing. Educated patient if it still oozing to lay down and apply pressure for 10-15 minutes to see if it stops, apply new dressing. She also mentions she had a cough she thinks brought it on, educated to hold groin site when coughing Call office if does not help [facility] [id number] Telephone encounter Note* Telephone Encounter - Kim Rivas - 05/06/2024 9:38 AM EDT Patient called in, she had ablation yesterday (05-05-24) Patient woke up today, with her gauze saturated. She states it looks pink, is not sure if she should take off as she was instructed to today. Patient concerned if she should be seen? Please advise. [facility] [id number] [facility]09-19-2024 Note* Perioperative Nursing Note - Zarina Rojo RN - 05/05/2024 6:01 PM EDT Right groin is unchanged from previous charting. Will discharge the pt. She verbalized understanding regarding any changes with the dressing. [facility] [id number] Note* Perioperative Nursing Note - Zarina Rojo RN - 05/05/2024 6:01 PM EDT Right groin is unchanged from previous charting. Will discharge the pt. She verbalized understanding regarding any changes with the dressing. [facility] [id number] Miscellaneous Notes* Perioperative Nursing Note - Zarina Rojo RN - 05/05/2024 6:01 PM EDT Right groin is unchanged from previous charting. Will discharge the pt. She verbalized understanding regarding any changes with the dressing. * Perioperative Nursing Note - Zarina Rojo RN - 05/05/2024 5:47 PM EDT There is a small amount of sero sanguinous blood at the tip of the dressing on the medial side. No other bleeding is noted and the site is soft without hematoma. * Perioperative Nursing Note - Zarina Rojo RN - 05/05/2024 5:36 PM EDT Ambulated in the hallway and the pt's right groin dressing is dry and intact with no bleeding noted. documented in this [facility]09-19-2024 Note* Perioperative Nursing Note - Zarina Rojo RN - 05/05/2024 5:47 PM EDT There is a small amount of sero sanguinous blood at the tip of the dressing on the medial side. No other bleeding is noted and the site is soft without hematoma. [id number] Note* Perioperative Nursing Note - Zarina Rojo RN - 05/05/2024 5:47 PM EDT There is a small amount of sero sanguinous blood at the tip of the dressing on the medial side. No other bleeding is noted and the site is soft without hematoma. [place] [id number] Note* Perioperative Nursing Note - Zarina Rojo RN - 05/05/2024 5:36 PM EDT Ambulated in the hallway and the pt's right groin dressing is dry and intact with no bleeding noted. [place] [id number] Note* Perioperative Nursing Note - Zarina Rojo RN - 05/05/2024 5:36 PM EDT Ambulated in the hallway and the pt's right groin dressing is dry and intact with no bleeding noted. [place] [id number] History of Present illness Narrative* SUJATA Howell CNP - 05/05/2024 3:53 PM EDT Patient seen in PACU s/p PVI. Resting comfortably in bed without complaints. Right groin stable without hematoma. Post-PVI restrictions reviewed. Ambulation after 2 1/2 hours of bedrest. If groin remains stable after ambulation, plan for discharge home. Follow up with Gi Mendoza NP in 1 month. Remain on uninterrupted anticoagulation unless otherwise instructed by our office. documented in this [facility]09-19-2024 [facility] 05-05-2024 Hospital Discharge instructions* Discharge Instructions* SUJATA Hoewll CNP - 05/05/2024 7:23 AM EDT Post Pulmonary Vein Isolation Ablation Discharge Instructions *Resume Eliquis tonight at regular time Observe groin site for swelling, redness, warmth, or bleeding. If these occur, notify your doctor. If you develop shortness of breath, cough and/or swelling please call you doctor's office or seek emergency care for severe symptoms. You may develop mild chest discomfort with taking a deep breath post procedure which typically peaks after 3 days and then improves. If discomfort worsens please call the office. If it becomes severeplease seek emergency care. No driving for the next 3 days. Do not lift anything over 10 pounds for the next 5 days. You may resume your usual exercise routineafter 5 days. Slight swelling or bruising is expected. For oozing, apply pressure for 10-15 minutes For brisk bleeding that does not stop, or if your foot or leg becomes cold, come to the Emergency department Keep groin site covered for one day, then remove bandage, leave open to air. No soaking in water. Showers only for the next 5 days. Resume pre-procedure diet Take all medications as prescribed by your doctor documented in this [facility]09-17-2024 NoteCalled and spoke to patient to remind her LD eliquis will be Thursday morning Also told patient not to take any meds on the morning of procedure.[facility]09-17-2024 Telephone encounter Note* Telephone Encounter - Tana Zavaleta RN - 05/03/2024 8:14 AM EDT Called and spoke to patient to remind her LD ramsey will be Thursday morning Also told patient not to take any meds on the morning of procedure. [facility] [id number] Miscellaneous Notes* Telephone Encounter - Tana Zavaleat RN - 05/03/2024 8:14 AM EDT Called and spoke to patient to remind her LD ramsey will be Thursday Also told patient not to take any meds on the morning of procedure. * Telephone Encounter - Kim Rivas - 04/20/2024 8:28 AM EDT Labs received via fax. Printed and given to MD's. Also sent to scanning. * Telephone Encounter - Kim Rivas - 04/19/2024 9:26 AM EDT Procedure: PVI Case: [id number] Date: 05-05-24 Time: 12:00p Follow up: one month with 06-01-24 Auth: approved * Telephone Encounter - Fabiana Vazquez - 04/19/2024 9:19 AM EDT no prior auth needed for PVI ([id number])- per [employer] Auth electric organ assembler and checker. Okay to schedule. Thank you * Telephone Encounter - Fabiana Vazquez - 04/19/2024 9:12 AM EDT I will work on this. Thank you * Telephone Encounter - Kim Rivas - 04/19/2024 9:00 AM EDT Can I please have an auth for PVI 05-05-24? * Telephone Encounter - SUJATA Najera CNP - 04/15/2024 10:42 AM EDT Case request placed and prep for proc complete. * Telephone Encounter - Roxy Monge RN - 04/15/2024 9:41 AM EDT Procedure: PVI Afib Ablation Date: 05.05.24 Pre-procedure instructions provided @ with [facility] on 04.15.24 Take last dose of Eliquis Wed morning on 05.04.24 May resume post procedure NPO at midnight prior to procedure Take Amiodarone, Carvedilol & Losartan with a sip of water AM of procedure Hold all other AM medications day of procedure Use [employer] Hand parking or [address] Park[address] Deck Enter the hospital @ [address] Take E Elevators to the Central Lounge to check in Designated drop hammer pile driver operator needed post procedure Pending: CBC & BMP (requisitions provided) Patient requested labs be done at [facility] in [place] next week 9.3 Prep/proc orders documented in this encounterSSt. John of God [id number] Telephone encounter Note* Telephone Encounter - Kim Rivas - 04/20/2024 8:28 AM EDT Labs received via fax. Printed and given to MA's. Also sent to scanning. [facility] [id number] NoteProcedure: PVI Case: [id number] Date: 05-05-24 Time: 12:00p Follow up: one month with [facility] 06-01-24 [facility] Telephone encounter Note* Telephone Encounter - Kim Curielgins - 04/19/2024 9:26 AM EDT Procedure: PVI Case: [id number] Date: 05-05-24 Time: 12:00p Follow up: one month with KM 06-01-24 Auth: approved [facility] [id number] Telephone encounter Note* Telephone Encounter - Fabiana Vazquez - 04/19/2024 9:19 AM EDT no prior auth needed for PVI ([id number], [id number])- per [employer] Auth electric organ assembler and checker. Okay to schedule. Thank you [facility] [id number] Telephone encounter Note* Telephone Encounter - Fabiana Vazquez - 04/19/2024 9:12 AM EDT I will work on this. Thank you [facility] [id number] Telephone encounter Note* Telephone Encounter - Kim Rivas - 04/19/2024 9:00 AM EDT Can I please have an auth for PVI 05-05-24? [facility] [id number] Telephone encounter Note* Telephone Encounter - SUJATA Najera CNP - 04/15/2024 10:42 AM EDT Case request placed and prep for proc complete. [facility] [id number] [facility]08-30-2024 Telephone encounter Note* Telephone Encounter - Roxy Monge RN - 04/15/2024 9:41 AM EDT Procedure: PVI Afib Ablation Date: 05.05.24 Pre-procedure instructions provided @ with [facility] on 04.15.24 Take last dose of Eliquis Thursday morning on 05.04.24 May resume post procedure NPO at midnight prior to procedure Take Amiodarone, Carvedilol & Losartan with a sip of water AM of procedure Hold all other AM medications day of procedure Use [employer] Hand parking or [address] Deck Enter the hospital @ [address] Take E Elevators to the Central Lounge to check in Designated drop hammer pile driver operator needed post procedure Pending: CBC & BMP (requisitions provided) Patient requested labs be done at [facility] in [place] next week 9.3 Prep/proc orders [facility] [id number] History of Present illness Narrative* Meet Lisbeth Leigh MD - 04/15/2024 9:00 AM EDT [facility] Cardiology Note Chief Complaint: Chief Complaint Patient presents with New Patient Paroxysmal Atrial Fib History of Present Illness: Rolando Peters is a 79 y.o. female with a history of carotid disease s/p CEA, breast CA, CKD stage II, tobacco abuse, COPD, HTN, HFmrEF, and PAF. She was recently admitted with cardiogenic shock in thesetting of AF with RVR. She is on amiodarone. LFTs were elevated at discharge, which was thought lidia due to the shock. She spontaneously converted to sinus rhythm on amiodaorne. She is maintaining sinus rhythm. She continues to feel fatigued. Past Medical History: Past Medical History: Diagnosis Date Arrhythmia Arthritis Asthma Breast cancer (HCC) 1993 Right Breast(Mastectomy) Breast cancer (HCC) 2010 Left Breast(Simple Mastectomy, SLND) Chronic kidney disease Coronary artery disease Diabetes (HCC) GERD (gastroesophageal reflux disease) High blood pressure Occlusion and stenosis of unspecified carotid artery Pure hypercholesterolemia Syncope and collapse 08/29/2022 Past Surgical History Past Surgical History: Procedure Laterality Date CAROTID ENDARTERECTOMY Right 2009 CATARACT EXTRACTION Bilateral 2006 CHEST TUBE INSERTION Right 10/05/2023 HC ENDOBRONCHIAL ULTRASOUND EBUS (HISTORICAL) 10/05/2023 MASTECTOMY Left 2010 simple/reconstruction/gingivagrapht MASTECTOMY Right 1993 reconstruction (TRAM) TOTAL ABDOMINAL HYSTERECTOMY W/ BILATERAL SALPINGOOPHORECTOMY 1998 TUBAL LIGATION 1979 Family History Family History Problem Relation Name Age of Onset Ovarian cancer Mother 66 Heart attack Father Lucita (Mother) 76 High Blood Pressure Father Lucita (Mother) Macular degeneration Father Lucita (Mother) Cancer Father Lucita (Mother) Ovarian cancer Mother's Sister 45 Other ([id number]) Son neuofibromatosis, BRCA1 positive Neurofibromatosis Son High Blood Pressure Son Cancer Son hairy cell leukemia Breast cancer Cousin 42 +brca Bladder Cancer Cousin 19 Hypertension Sister Angie Kidney disease Sister Angie Hypertension Sister Mireya Sister Kidney disease Sister Mireya Sister Social History Social History Tobacco Use Smoking status: Former Current packs/day: 0.00 Average packs/day: 1 pack/day for 30.0 years (30.0 ttl pk-yrs) Types: Cigarettes Start date: 08/17/1963 Quit date: 08/17/1993 Years since quittin.6 Smokeless tobacco: Never 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: , 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 [facility], 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, 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 Vaping Use Vaping status: Never Used Substance Use Topics Alcohol use: Yes Alcohol/week: 2.0 - 16.0 standard drinks of alcohol Types: 2 Glasses of wine per week Comment: occ Drug use: No Comment: caffeine use: 1 cup of coffee a day Allergies: Allergies Allergen Reactions Isosulfan Blue Anaphylaxis Methylene Blue Sulfa Antibiotics Rash Medications: Current Outpatient Medications: albuterol (Ventolin HFA) 108 (90 Base) MCG/ACT inhaler, Inhale 2 puffs every 4 hours as needed for wheezing or shortness of breath., Disp: 8 g, Rfl: 11 amiodarone (Pacerone) 200 MG tablet, Take 1 tablet (200 mg) by mouth daily. Do not start before February 12, 2024., Disp: 90 tablet, Rfl: 1 apixaban (Eliquis) 5 MG tablet, Take 1 tablet (5 mg) by mouth 2 times daily., Disp: 180 tablet, Rfl: 1 carvedilol (Coreg) 12.5 MG tablet, Take 1 tablet (12.5 mg) by mouth in the morning and 1 tablet (12.5 mg) in the evening. Take with meals., Disp: 180 tablet, Rfl: 1 cholecalciferol (Vitamin D-3) 50 MCG (2000 UT) tablet, Take 4,000 Units by mouth daily., Disp: , Rfl: ezetimibe (Zetia) 10 MG tablet, Take 1 tablet (10 mg) by mouth in the morning., Disp: 90 tablet, Rfl: 2 Finerenone (Kerendia) 10 MG tablet, Take 1 tablet by mouth daily., Disp: , Rfl: fluticasone (Cutivate) 0.05 % cream, Apply topically Daily as needed (itching)., Disp: , Rfl: fluticasone (Flonase) 50 MCG/ACT nasal spray, Administer 1 spray into each nostril daily. Shake gently. Before first use, prime pump. After use, clean tip and replace cap., Disp: , Rfl: furosemide (Lasix) 20 MG tablet, Take 1 tablet (20 mg) by mouth Daily as needed (weight gain, swelling or shortness of breath)., Disp: , Rfl: Jentadueto XR 2.5-1000 MG per 24 hr tablet, take 2 tablets by mouth once daily, Disp: , Rfl: lansoprazole (Prevacid) [address] capsule, 1 capsule in the morning., Disp: , Rfl: losartan (Cozaar) 50 MG tablet, Take 1 tablet (50 mg) by mouth daily., Disp: 90 tablet, Rfl: 1 rosuvastatin (Crestor) 10 MG tablet, daily., Disp: , Rfl: sertraline (Zoloft) 25 MG tablet, Take 1 tablet (25 mg) by mouth daily., Disp: 30 tablet, Rfl: 11 tiotropium (Spiriva Respimat) 2.5 MCG/ACT inhaler, Inhale 2 puffs daily., Disp: 1 each, Rfl: 11 Vascepa 1 g capsule, TAKE 2 CAPSULES BY MOUTH 2 TIMES DAILY, Disp: 360 capsule, Rfl: 3 predniSONE (Deltasone) 10 MG tablet, Take 10 mg by mouth daily., Disp: , Rfl: Review of Systems: Review of Systems Constitutional: Positive for fatigue. HENT: Negative for nosebleeds. Respiratory: Positive for apnea (home sleep study is scheduled for 04.29.24) and shortness of breath. Cardiovascular: Positive for palpitations (feels fluttering in her throat & squeezing sensation). Gastrointestinal: Negative for blood in stool. Genitourinary: Negative for hematuria. Musculoskeletal: No recent falls Neurological: Positive for light-headedness. Hematological: Bruises/bleeds easily. Physical Examination: Vitals: Vitals: 04/15/24 0901 04/15/24 0923 BP: (!) 174/60 (!) 182/64 BP Location: Left arm Left arm Patient Position: Sitting Sitting BP Cuff Size: Adult Small adult Pulse: 64 SpO2: 97% Weight: 143 lb (64.9 kg) Height: 5' 7 (1.702 m) Body mass index is 22.4 kg/m . Physical Exam Constitutional: Appearance: Normal appearance. HENT: Head: Normocephalic and atraumatic. Mouth/Throat: Mouth: Mucous membranes are moist. Eyes: Extraocular Movements: Extraocular movements intact. Cardiovascular: Rate and Rhythm: Normal rate and regular rhythm. Pulses: Normal pulses. Heart sounds: Normal heart sounds. Pulmonary: Effort: Pulmonary effort is normal. Breath sounds: Normal breath sounds. Abdominal: Palpations: Abdomen is soft. Musculoskeletal: General: Normal range of motion. Cervical back: Normal range of motion and neck supple. Skin: General: Skin is warm and dry. Neurological: General: No focal deficit present. Mental Status: She is alert and oriented to person, place, and time. Psychiatric: Mood and Affect: Mood normal. Behavior: Behavior normal. Thought Content: Thought content normal. Judgment: Judgment normal. Laboratory Tests: Lab Results Component Value Date WBC 8.6 01/22/2024 HGB 9.6 (L) 01/22/2024 HCT 29.8 (L) 01/22/2024 MCV 95.2 01/22/2024 PLT 209 01/22/2024 Lab Results Component Value Date GLUCOSE 102 (H) 01/22/2024 CALCIUM 7.6 (L) 01/22/2024 NA 129 (L) 01/22/2024 K 4.0 01/22/2024 CO2 24 01/22/2024 CL 102 01/22/2024 BUN 17 01/22/2024 CREATININE 0.87 01/22/2024 @LASTP@ Lab Results Component Value Date CHOL 149 06/14/2020 CHOL 170 08/22/2019 Lab Results Component Value Date TRIG 265 (A) 06/14/2020 TRIG 280 (A) 08/22/2019 Lab Results Component Value Date HDL 45 06/14/2020 HDL 54 08/22/2019 No results found for: LDLCALC Echocardiogram 01/2024 Left Ventricle: Left ventricle size is normal. Normal wall thickness. Normal left ventricular systolic function. EF by visual approximation is 48%. Global longitudinal strain is reduced with a value of -14.7%. Normal wall motion. Grade III diastolic dysfunction with increased LAP. Right Ventricle: Right ventricle size is normal. Low normal systolic function. RV Peak S' is 8 cm/s. Aortic Valve: Trileaflet. Cusp sclerosis. Mild (1+) regurgitation. Aortic slcerosis. AV mean gradient is 7 mmHg. AV peak gradient is 12 mmHg. AV peak velocity is 1.7 m/s. Mitral Valve: Moderately thickened leaflets. Moderately calcified leaflets. Mild annular calcification. Moderate (2+) regurgitation with a posterior directed jet. No stenosis noted. Tricuspid Valve: Valve structure is normal. Mild (1+) regurgitation. Mild to moderately elevated RVSP. RVSP is 46 mmHg. Left Atrium: Left atrium is moderately dilated. Right Atrium: Right atrium size is normal. Aorta: Normal sized sinuses of Valsalva and ascending aorta. Pericardium: No pericardial effusion. IVC/SVC: IVC diameter is dilated and decreases greater than 50% during inspiration; therefore the estimated right atrial pressure is intermediate (~8 mmHg). Assessment and Plan: Paroxsymal Atrial Fibrillation - Currently on amiodarone for rhythm control. LFTs elevated at discharge (thought to be secondary to cardiogenic shock). Will recheck today. - Discussed rhythm control options, ie ablation rather than AADs. The indications, risks, benefits,alternatives, and details of the procedure were explained to the patient who expressed understanding of the risks including but are not limited to: pain, bleeding, and infection for which the risk isless than 1%. More serious risks, including cardiac perforation and tamponade, vascular trauma, pulmonary vein stenosis, atrio-esophageal fistula, diaphragmatic paralysis, life-threatening arrhythmia, need for permanent pacemaker, stroke, heart attack, and/or , for which the overall risk ranges 0.1-1%. She would like to proceed with ablation. - We will plan on stopping amiodarone one month after ablation. 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 Will recheck EF three months after ablation - Defer management of GDMT to Dr. Jerome documented in this [place] [id number] Telephone encounter Note* Telephone Encounter - Veronika Couch - 04/01/2024 3:13 PM EDT Pt called for refill on Ezetimibe 10mg. Pls eRx to [facility] in [place]. [id number] Miscellaneous Notes* Telephone Encounter - Veronika Couch - 04/01/2024 3:13 PM EDT Pt called for refill on Ezetimibe 10mg. Pls eRx to [facility] in [place]. documented in this [place] [id number] Telephone encounter Note* Telephone Encounter - Cortney Sales - 03/25/2024 4:18 PM EDT Please review pended Rx for Carvedilol 12.5 mg [facility] if appropriate. Thank you! [id number] Miscellaneous Notes* Telephone Encounter - Cortney Sales - 03/25/2024 4:18 PM EDT Please review pended Rx for Carvedilol 12.5 mg and [facility] if appropriate. Thank you! documented in this encounterSSt. [facility] of God [id number] Telephone encounter Note* Telephone Encounter - Harriet Lujan RN - 03/25/2024 2:49 PM EDT See other telephone encounter for more information. [facility] [id number] Miscellaneous Notes* Telephone Encounter - Harriet Lujan RN - 03/25/2024 2:49 PM EDT See other telephone encounter for more information. * Telephone Encounter - SUJATA Enamorado CNP - 03/08/2024 9:54 AM EDT Noted. Agree with plan. * Telephone Encounter - Baljeet Patel RN - 03/04/2024 1:12 PM EDT I called and relayed to Rolando that Malika Gracia CNP suggested LC Cut her Carvedilol in half and update us next week. . Rolando will continue taking the Losartan 50 mg daily and will decrease the Carvedilol to half tablet twice daily. Rolando will let us know next week how she is doing. * Telephone Encounter - Baljeet Patel RN - 03/04/2024 12:47 PM EDT I called and spoke with Rolando. Rolando said she was up and moving around this morning and getting things together for breakfast and she felt dizzy/lightheaded she sat down and checked her BP and it was94/44. BP then went up after sitting to 101/38. Rolando said her heart rate is steady in the 50's to 60's . She feels the lightheadedness is limiting what she can do. She has the Losartan 50 mg tablet and the tablet is scored. She will try taking Losartan 25 mg daily. I will send to Luh to review on Thursday when she returns and Malika Gracia CNP to review and advise further. * Telephone Encounter - Loly Honorable - 03/04/2024 12:32 PM EDT Patient wanted to leave a message and let Luh know that she's still having issues with her BP. The diastolic number keep being in 40's, she did say she remembers that should be ok but the family isconcerned and this morning her BP was 103/44, plus this afternoon it is 120/40. Would like a call back. documented in this [facility]07-26-2024 History of Present illness Narrative* Stephanie Arana, - 03/11/2024 11:00 AM EDT [facility] [place] [address] [place] [id number] Pulmonary Patient Visit 03/11/2024 Referring Physician: CELIA AL DO Reason for Referral: Lung Nodules 09/29/23 History of Present Illness Rolando Peters is a 79 y.o. female with history of stage I triple negative breast cancer s/p left mastectomy 05/2011, right-sided breast cancer s/p mastectomy 06/1994 s/p adjuvant chemo/tamoxifen, CKD who presented for evaluation of multiple PET avid pulmonary nodules. Patient reported she follows with oncology Dr. Marcus. Stated that she was referred to Dr. Marcus as she has had progressive weightloss, about 50 pounds since 07/2022. Admitted to a chronic mostly nonproductive cough and postnasaldrip. Reported progressive CRUZ with stairs, denied any shortness of breath at rest. Stated she was diagnosed with exercise-induced asthma several years ago, has an albuterol inhaler which she rarely requires. Denied any hemoptysis, chest pain, night sweats. Initially diagnosed with INGA in 2007, completed PSG and prescribed CPAP with nasal mask, but has not been compliant. 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 Procedure complicated by pneumothorax requiring chest tube. Patient reports feeling well since being discharged. Admitted to blood- tinged sputum postprocedure which has since resolved. Admitted to chronic CRUZ with stairs, denied any shortness of breath at rest, chest pain. 12/04/23 Currently on prednisone 30mg until next week. Stated that she has some sinus drainage due to seasonal allergies, but that her cough has resolved. Was started on Spiriva and noticed improvement of wheezing except on the day that she forgot to take it. Denies any fevers, chills. 03/11/2024 Patient reported that she was hospitalized in January for A-fib with RVR and HFpEF exacerbation. Just completing her steroid taper. Now feeling improved from a respiratory standpoint. Denied any shortness of breath, CRUZ, wheezing, chest tightness. Admitted to some rhinorrhea and postnasal drip. PastMedical History Past Medical History: Diagnosis Date Arrhythmia Arthritis Asthma Breast cancer (HCC) 1993 Right Breast(Mastectomy) Breast cancer (HCC) 2010 Left Breast(Simple Mastectomy, SLND) Chronic kidney disease Coronary artery disease Diabetes (HCC) GERD (gastroesophageal reflux disease) High blood pressure Occlusion and stenosis of unspecified carotid artery Pure hypercholesterolemia Syncope and collapse 08/29/2022 Past Surgical History Past Surgical History: Procedure Laterality Date CAROTID ENDARTERECTOMY Right 2008 CATARACT EXTRACTION Bilateral 2006 CHEST TUBE INSERTION Right 10/05/2023 ENDOBRONCHIAL ULTRASOUND EBUS (HISTORICAL) 10/05/2023 MASTECTOMY Left 2010 simple/reconstruction/gingivagrapht MASTECTOMY Right 1993 reconstruction (TRAM) TOTAL ABDOMINAL HYSTERECTOMY W/ BILATERAL SALPINGOOPHORECTOMY 1998 TUBAL LIGATION 1979 Allergies Allergies Allergen Reactions Isosulfan Blue Anaphylaxis Methylene Blue Sulfa Antibiotics Rash Medications Medication Documentation Review Audit Reviewed by Stephanie Arana DO (Physician) on 03/11/24 at 1655 Medication Order Taking? Sig Documenting Provider Last Dose Status albuterol (Ventolin HFA) 108 (90 Base) MCG/ACT inhaler [id number] Yes Inhale 2 puffs every 4 hours asneeded for wheezing or shortness of breath. Stephanie Arana, DO Taking Active amiodarone (Pacerone) 200 MG tablet [id number] Yes Take 1 tablet (200 mg) by mouth daily. Do not start before February 12, 2024. SUJATA Enamorado CNP Taking Active apixaban (Eliquis) 5 MG tablet [id number] Yes Take 1 tablet (5 mg) by mouth 2 times daily. SUJATA Enamorado CNP Taking Active carvedilol (Coreg) 25 MG tablet [id number] Yes Take 1 tablet (25 mg) by mouth in the morning and 1 tablet (25 mg) in the evening. Take with meals. Steven Stewart, Taking Active cholecalciferol (Vitamin D-3) 50 MCG (1999 UT) tablet [id number] Yes Take 4,000 Units by mouth daily.Historical Provider, Taking Active ezetimibe (Zetia) 10 MG tablet [id number] Yes Take 1 tablet (10 mg) by mouth in the morning. SUJATA Enamorado CNP Taking Active Finerenone (Kerendia) 10 MG tablet [id number] Yes Take 1 tablet by mouth daily. Historical Provider, Taking Active fluticasone (Cutivate) 0.05 % cream [id number] Yes Apply topically Daily as needed (itching). Historical Provider, Taking Active fluticasone (Flonase) 50 MCG/ACT nasal spray [id number] Yes Administer 1 spray into each nostril daily. Shake gently. Before first use, prime pump. After use, clean tip and replace cap. Historical Provider, Taking Active furosemide (Lasix) 20 MG tablet [id number] Yes Take 1 tablet (20 mg) by mouth Daily as needed (weightgain, swelling or shortness of breath). SUJATA Enamorado CNP Taking Active Jentadueto XR 2.5-1000 MG per 24 hr tablet [id number] Yes take 2 tablets by mouth once daily Historical Provider, Taking Active lansoprazole (Prevacid) [address] capsule [id number] Yes 1 capsule in the morning. Historical Provider, Taking Active losartan (Cozaar) 50 MG tablet [id number] Yes Take 1 tablet (50 mg) by mouth daily. Kristy Doran APRN - WINDOWS TECH[employer]ICAL SPECIALIST Taking Active predniSONE (Deltasone) 10 MG tablet [id number] Yes Take 10 mg by mouth daily. Historical Provider, Taking Active rosuvastatin (Crestor) 10 MG tablet [id number] Yes daily. Historical Provider, Taking Active sertraline (Zoloft) 25 MG tablet [id number] Yes Take 1 tablet (25 mg) by mouth daily. Steven Stewart, DO Taking Active tiotropium (Spiriva Respimat) 2.5 MCG/ACT inhaler [id number] Yes Inhale 2 puffs daily. 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 Substance Use Topics Alcohol use: Yes Alcohol/week: 2.0 - 16.0 standard drinks of alcohol Types: 2 Glasses of wine per week Comment: occ FamilyHistory Family History Problem Relation Name Age of Onset Ovarian cancer Mother 66 Heart attack Father Lucita (Mother) 76 High Blood Pressure Father Lucita (Mother) Macular degeneration Father Lucita (Mother) Cancer Father Lucita (Mother) Ovarian cancer Mother's Sister 45 Other ([id number]) Son neuofibromatosis, BRCA1 positive Neurofibromatosis Son High Blood Pressure Son Cancer Son hairy cell leukemia Breast cancer Cousin 42 +brca Bladder Cancer Cousin 19 Hypertension Sister Angie Kidney disease Sister Angie Hypertension Sister Mireya Sister Kidney disease Sister Mireya Sister Review of Systems Review of Systems Constitutional: Negative. HENT: Positive for postnasal drip. Respiratory: Negative for choking, chest tightness, shortness of breath and wheezing. See HPI Cardiovascular: Negative. Negative for leg swelling. Physical Exam Vitals: 03/11/24 1113 03/11/24 1142 BP: 96/58 108/63 Pulse: 64 64 Temp: (!) 35.8 C (96.5 F) TempSrc: Temporal SpO2: 100% Height: 5' 7.25 (1.708 m) Physical Exam Vitals reviewed. Constitutional: General: She is not in acute distress. Appearance: Normal appearance. HENT: Head: Normocephalic and atraumatic. Nose: No congestion. Mouth/Throat: Mouth: Mucous membranes are moist. Eyes: General: No scleral icterus. Extraocular Movements: Extraocular movements intact. Cardiovascular: Rate and Rhythm: Normal rate and regular rhythm. Pulmonary: Effort: Pulmonary effort is normal. No respiratory distress. Breath sounds: Normal breath sounds. No wheezing, rhonchi or rales. Musculoskeletal: General: No swelling or tenderness. Skin: General: Skin is warm and dry. Neurological: Mental Status: She is alert and oriented to person, place, and time. Psychiatric: Mood and Affect: Mood normal. Labs: Available studies were reviewed Radiology: Personally reviewed and interpreted Chest CT 08/24/2023: Interval development of scattered focal consolidations in the lungs, particularly in the apical left lung lobes as discussed. Recommended short-term follow-up imaging to document resolution. Interval development of new lateral right middle lung lobe nodule with interval enlargement of other previously noted nodules as discussed. Further clinical attention and workup is warranted. Moderate pulmonary emphysema. Coronary and aortic atherosclerosis. Other chronic findings as discussed. PET/CT 09/17/23: 1 cm irregular nodular density within the lateral aspect of the right upper lobe onthe low-dose CT images demonstrates intense FDG accumulation, consistent with malignancy. A 7 mm nodular density within the anteromedial right lower lobe also demonstrates abnormal FDG accumulation, suspicious for malignancy. A streaky density within the left lower lobe on the low-dose CT images demonstrates mild FDG accumulation, less than typically expected for malignancy. A small, somewhat streaky nodular density within the medial aspect of the right lower lobe also demonstrates mild FDG uptake. There is a linear density at the posterior aspect of the left lung apex which demonstrate mild to moderate FDG accumulation which is nonspecific, however the linear configuration of this area is more suggestive of an inflammatory etiology. CT follow-up of these findings is recommended. No evidence of regional edmond or distant metastatic disease. Chest CT 11/25/23: Multiple bilateral areas of lung parenchymal abnormality and increased activity on the previous PET/CT are unchanged. There is a new 6 mm nodular density in the left upper lobe lung. Continued follow-up CT would be helpful. Chest CT 02/24/2024: 1. Interval improvement of anterior left upper lung lobe infiltrates with residual opacities still observed. Follow-up imaging to document resolution. 2. New apical right lower lung lobe and subpleural right middle lung lobe 6 mm nodules. For these nodule characteristics, Fleischner society recommends CT at 3-6 months and then at 18-24 months. 3. Coronary and aortic atherosclerosis. 4. Other chronic and postsurgical findings as discussed. PFT's: 10/29/2023: Moderate obstruction, significant response to bronchodilators, air trapping, moderately reduced diffusion capacity Assessment/plan: Hypermetabolic pulmonary nodules, OP, improved New pulmonary nodules Recent hospitalization for HF exacerbation and A-fib with RVR Hx breast ca s/p B/L mastectomies COPD/asthma overlap Former smoker -Chest imaging previously reviewed with patient and spouse, discussed multiple new or enlarging pulmonary nodules. Most avid nodules are SUV 7.2 right middle lobe and SUV 4.9 right lower lobe. Left upper lobe streaky density has moderate uptake SUV 3.2. No avid lymphadenopathy. -S/p ENB/EBUS 10/05/22. 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 Right middle lobe biopsy also with adjacent acellular material. TBNA with RML with atypical cells, RLL nondiagnostic, LN 7, 4R, 11R negative for malignancy. Pneumonia PCR, bacterial culture, fungal stain/culture, AFB stain/culture, silver stain, Aspergillus galactomannan, beta D glucan negative. Procedure complicated by pneumothorax. -Completed prolonged steroid taper for organizing pneumonia. Recent chest CTs reviewed with patient. Discussed that prior hypermetabolic areas are improved. During recent hospitalization had increased infiltrates in the left upper lobe which are improved on follow-up CT. Now noted with 2 new pulmonary nodules in the right upper and right middle lobes. Will repeat chest CT in 3-6 months. -PFTs previously reviewed with patient. Denied any respiratory symptoms currently. Will continue with Spiriva and albuterol as needed. Follow up: 3 months, after CT to review results Please seek immediate medical attention for any worsening or worrying new symptoms. Patient education, benefits, risks, and precautions provided. Management plan was discussed in detail and in agreement. All questions or concerns answered to satisfaction and understood. Stephanie Arana DO 4:57 PM 03/11/24 Pulmonary and Critical Care Medicine documented in this [facility]07-26-2024 Instructions* Patient Instructions* Ginger Benson - 03/11/2024 11:00 AM EDT YOUR APPOINTMENT TODAY WAS WITH THE [facility] LUNG NODULE CLINIC, COPD CLINIC, PULMONARY AND SLEEP MEDICINE OFFICE. PLEASE CALL OUR OFFICE AT [phone] IF YOU HAVE NOT RECEIVED YOUR TEST RESULTS 7 DAYS AFTER TESTING IS COMPLETED. PLEASE REMEMBER TO REQUEST REFILLS AT YOUR OFFICE VISITS. PHONE/FAX REQUESTS REQUIRE 48-72 HOURS FOR RESPONSE. A FRIENDLY REMINDER COPAYS ARE DUE AT TIME OF SERVICE. THANK YOU. Our Patients Are Important! We want to improve and you can help. After your visit we want you to feel: Listened to, Respected and have your health care explained. You may receive a survey asking you about your visit. Please complete the survey. We will use your feedback to make improvements. COVID-19 VACCINATION INFORMATION: PH. [phone] [email or web address].[email or web address]/VACCINE [facility] Central Scheduling [phone] [facility] Sleep Scheduling [phone] documented in this [facility]07-23-2024 Telephone encounter Note* Telephone Encounter - SUJATA Enamorado CNP - 03/08/2024 9:54 AM EDT Noted. Agree with plan. [facility] [id number] Miscellaneous Notes* Telephone Encounter - SUJATA Enamorado CNP - 03/08/2024 9:54 AM EDT Noted. Agree with plan. * Telephone Encounter - Baljeet Patel RN - 03/04/2024 1:12 PM EDT I called and relayed to Rolando that Malika Gracia CNP suggested LC Cut her Carvedilol in half and update us next week. . Rolando will continue taking the Losartan 50 mg daily and will decrease the Carvedilol to half tablet twice daily. Rolando will let us know next week how she is doing. * Telephone Encounter - Baljeet Patel RN - 03/04/2024 12:47 PM EDT I called and spoke with Rolando. Rolando said she was up and moving around this morning and getting things together for breakfast and she felt dizzy/lightheaded she sat down and checked her BP and it was94/44. BP then went up after sitting to 101/38. Rolando said her heart rate is steady in the 50's to 60's . She feels the lightheadedness is limiting what she can do. She has the Losartan 50 mg tablet and the tablet is scored. She will try taking Losartan 25 mg daily. I will send to Luh to review on Thursday when she returns and Malika Gracia CNP to review and advise further. * Telephone Encounter - Loly Cooper - 03/04/2024 12:32 PM EDT Patient wanted to leave a message and let Luh know that she's still having issues with her BP. The diastolic number keep being in 40's, she did say she remembers that should be ok but the family isconcerned and this morning her BP was 103/44, plus this afternoon it is 120/40. Would like a call back. documented in this [facility]07-19-2024 Telephone encounter Note* Telephone Encounter - Baljeet Patel RN - 03/04/2024 1:12 PM EDT I called and relayed to Rolando that Malika Gracia CNP suggested LC Cut her Carvedilol in half and update us next week. . Rolando will continue taking the Losartan 50 mg daily and will decrease the Carvedilol to half tablet twice daily. Rolando will let us know next week how she is doing. [facility] [id number] Telephone encounter Note* Telephone Encounter - Baljeet Patel RN - 03/04/2024 12:47 PM EDT I called and spoke with Rolando. Rolando said she was up and moving around this morning and getting things together for breakfast and she felt dizzy/lightheaded she sat down and checked her BP and it was94/44. BP then went up after sitting to 101/38. Rolando said her heart rate is steady in the 50's to 60's . She feels the lightheadedness is limiting what she can do. She has the Losartan 50 mg tablet and the tablet is scored. She will try taking Losartan 25 mg daily. I will send to Luh to review on Thursday when she returns and Malika Gracia CNP to review and advise further. [place] [id number] Telephone encounter Note* Telephone Encounter - Loly Cooper - 03/04/2024 12:32 PM EDT Patient wanted to leave a message and let Luh know that she's still having issues with her BP. The diastolic number keep being in 40's, she did say she remembers that should be ok but the family isconcerned and this morning her BP was 103/44, plus this afternoon it is 120/40. Would like a call back. [place] [id number] Telephone encounter Note* Telephone Encounter - Baljeet Patel RN - 02/29/2024 12:53 PM EDT I called and relayed to Rolando the note from Kristy Doran CNP to stay on the 50 mg daily of Losartan. Todays BP per Rolando with the arm cuff 125/47. I reassured Rolando that the diastolic of 47 is okay. [facility] [id number] Miscellaneous Notes* Telephone Encounter - Baljeet Patel RN - 02/29/2024 12:53 PM EDT I called and relayed to Rolando the note from Kristy Doran CNP to stay on the 50 mg daily of Losartan. Todays BP per Rolando with the arm cuff 125/47. I reassured Rolando that the diastolic of 47 is okay. * Telephone Encounter - SUJATA Enamorado CNP - 02/29/2024 12:40 PM EDT Please let her know that I am glad she is feeling better and she should continue the losartan 50 mgpo daily * Telephone Encounter - Loly Cooper - 02/26/2024 10:29 AM EDT Wanted to leave Luh a message regarding them cutting her losartan down to 50 mg she has been feeling a little better, worked a couple hours without feeling dizzy, and her BP has been stable. Would like a call back. Thanks documented in this [facility]07-15-2024 Telephone encounter Note* Telephone Encounter - SUJATA Enamorado CNP - 02/29/2024 12:40 PM EDT Please let her know that I am glad she is feeling better and she should continue the losartan 50 mgpo daily [facility] [id number] Telephone encounter Note* Telephone Encounter - Loly Cooper - 02/26/2024 10:29 AM EDT Wanted to leave Luh a message regarding them cutting her losartan down to 50 mg she has been feeling a little better, worked a couple hours without feeling dizzy, and her BP has been stable. Would like a call back. Thanks [place] [id number] Miscellaneous Notes* Telephone Encounter - Loly Gurabochriss - 02/26/2024 10:29 AM EDT Wanted to leave Luh a message regarding them cutting her losartan down to 50 mg she has been feeling a little better, worked a couple hours without feeling dizzy, and her BP has been stable. Would like a call back. Thanks documented in this [facility]07-10-2024 Note* Addendum Note - Baljeet Patel RN - 02/24/2024 10:26 AM EDTAddended by: DASH PATEL on: 02/24/2024 10:26 AM Modules accepted: Orders [place] [id number] Note* Addendum Note - Baljeet Patel RN - 02/24/2024 10:26 AM EDTAddended by: DASH PATEL on: 02/24/2024 10:26 AM Modules accepted: Orders [place] [id number] Miscellaneous Notes* Addendum Note - Baljeet Patel RN - 02/24/2024 10:26 AM EDTAddended by: DASH PATEL on: 02/24/2024 10:26 AM Modules accepted: Orders * Telephone Encounter - Haley Vergara - 02/24/2024 10:06 AM EDT Received call from riya Murray home nurse, requesting if we can send in a script for 50 mg of the losartan to [facility]. She said the pills she has are tear shaped and are not scored making it difficult to cut in half. She also mentioned patient's diastolic numbers are still around 40. Said to follow up with patient. * Telephone Encounter - Baljeet Patel RN - 02/22/2024 2:34 PM EDT I called and relayed to Rolando that Kristy Doran CNP recommended decreasing the Losartan to 50 mg or one half tablet daily. * Telephone Encounter - SUJATA Enamorado CNP - 02/22/2024 2:25 PM EDT Please have her decrease her losartan to 50 mg (or 1/2 tablet daily) * Telephone Encounter - Baljeet Patel RN - 02/22/2024 9:34 AM EDT I called and spoke with Rolando. Rolando said she still gets dizzy after she is up a little while. BP today was taken 3 times with several minutes between. She got 102/38, 104/40, 102/35 Heart rate was 59 and 60. She has not had Furosemide or Amlodipine since 02/15/24. Blood glucose today was 114. I talked to her about making sure is is hydrated. She said she does not drink much water. I will have Kristy Doran review for further advisement. * Telephone Encounter - Haley Vergara - 02/22/2024 8:53 AM EDT Patient called in with some updates, said her blood pressure has still been running low. On Thursday when she was making breakfast she started to feel dizzy and checked and it was 83/36. She said shelaid down for a little bit and it went back up but could not remember exactly what it went to. She did also note that her jentadueto had a side effect of dizziness and wanted to mention that in case that could be contributing to her problems. documented in this encounterSSt. John of God [id number] Telephone encounter Note* Telephone Encounter - Haley Vergara - 02/24/2024 10:06 AM EDT Received call from riya Murray [place] nurse, requesting if we can send in a script for 50 mg of the losartan to [facility]. She said the pills she has are tear shaped and are not scored making it difficult to cut in half. She also mentioned patient's diastolic numbers are still around 40. Said to follow up with patient. [facility] [id number] Telephone encounter Note* Telephone Encounter - Baljeet Patel RN - 02/22/2024 2:34 PM EDT I called and relayed to Rolando that Kristy Doran CNP recommended decreasing the Losartan to 50 mg or one half tablet daily. [facility] [id number] Telephone encounter Note* Telephone Encounter - SUJATA Enamorado CNP - 02/22/2024 2:25 PM EDT Please have her decrease her losartan to 50 mg (or 1/2 tablet daily) [facility] [id number] Telephone encounter Note* Telephone Encounter - Baljeet Patel RN - 02/22/2024 9:34 AM EDT I called and spoke with Rolando. Rolando said she still gets dizzy after she is up a little while. BP today was taken 3 times with several minutes between. She got 102/38, 104/40, 102/35 Heart rate was 59 and 60. She has not had Furosemide or Amlodipine since 02/15/24. Blood glucose today was 114. I talked to her about making sure is is hydrated. She said she does not drink much water. I will have Kristy Doran review for further advisement. [facility] [id number] Telephone encounter Note* Telephone Encounter - Haley Vergara - 02/22/2024 8:53 AM EDT Patient called in with some updates, said her blood pressure has still been running low. On Thursday when she was making breakfast she started to feel dizzy and checked and it was 83/36. She said shelaid down for a little bit and it went back up but could not remember exactly what it went to. She did also note that her jentadueto had a side effect of dizziness and wanted to mention that in case that could be contributing to her problems. [facility] [id number] History of Present illness Narrative* Kristy Doran, SUJATA - FRANSISCO - 02/15/2024 1:30 PM EDT Images from the original note were not included. [facility] [address] [place] [address] [address] [facility] [id number] Dept: [phone] Dept Visit type: Established : 1945 Reason for Visit: Atrial Fibrillation Assessment and Plan 1. PAF (paroxysmal atrial fibrillation) ([facility]) Assessment & Plan: Nonvalvular. S/p DMITRY/DCC 01/2024. On amiodarone for rhythm suppression as she had heart failure whenshe was in A-fib. Recurrent A-fib on hospital follow-up 02/01/2024 and she was reloaded with amiodarone. Spontaneous conversion to sinus rhythm per EKG 02/09/2024 and repeat cardioversion canceled. Remains in sinus rhythm today. -Refer to EP for further evaluation (previously ordered) -Continue carvedilol 25 mg p.o. twice daily (would decrease to 12.5 mg po daily if her BP does not improve with stopping amlodipine or is HR remains in low 50's) Continue amiodarone 200 mg p.o. daily -Continue Eliquis 5 mg p.o. twice daily (filled by [facility]) Orders: - ECG 12 lead - CLINIC PERFORMED 2. On continuous oral anticoagulation Assessment & Plan: Tolerating Eliquis without abnormal bleeding. -Continue Eliquis -CBC and BMP every 6 months, due July 2024 3. On amiodarone therapy Assessment & Plan: On amiodarone for rhythm suppression. -Continue amiodarone -TSH and LFTs every 6 months, due July 2024 4. 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 EF 48% per echocardiogram January 2024. No current heart failure symptoms and appearseuvolemic on physical exam, she may even be a little dry -Continue carvedilol 25 mg p.o. twice daily -Continue losartan 100 mg p.o. daily -change Lasix 20 mg p.o. daily prn (she may not need daily diuretic since she is back in SR) -Heart failure self-care reviewed Orders: - furosemide (Lasix) 20 MG tablet; Take 1 tablet (20 mg) by mouth Daily as needed (weight gain, swelling or shortness of breath)., Starting 02/15/2024, Until Thu02/14/2025 at 2359, No Print 5. Elevated LFTs Assessment & Plan: Elevated LFTs during recent hospitalization in setting of cardiogenic shock. LFTs have been improving with diuresis. 6. Essential hypertension Assessment & Plan: Goal less than 130/80. History of supine hypertension with orthostasis. Hypotensive today. -Previously taken off hydrochlorothiazide due to orthostasis - stop amlodipine -Continue carvedilol, losartan 7. Bilateral carotid artery stenosis Assessment & Plan: Moderate. Coronary risk equivalent. No symptoms. She has a history of right carotid endarterectomy. -Carotid US 04/2024 -Given ASCVD and DM2 consider add SGLT2i (will hold off for now since we are starting lasix) 8. Dyslipidemia Assessment & Plan: Target LDL <70. LDL 62 (11/2023) - Cont zetia - Cont crestor - Cont Vascepa. -Cont lifestyle mgt given elev TG; if much higher over time, consider Tricor 9. 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 Diabetic related disease. -Continue diabetic management -Continue losartan and Finerenone which is managed by Dr. Livingston -Consider SGLT2i given ASCVD+DM2+CKD. Will defer to Renal and Endocrine. 10. Obstructive sleep apnea syndrome Assessment & Plan: History of INGA but has not used CPAP for 6 or 7 years. Due to new onset A-fib and heart failure, I am recommending a home sleep study. She states she has lost quite a bit of weight since she was initially diagnosed with sleep apnea so it is unclear if she would still need CPAP. -Home sleep study pending, previously ordered Follow up in about 2 months (around 04/17/2024). Subjective Hx of carotid dz and CEA, breast CA, CKD stage II, tobacco abuse, COPD, HTN, HFmrEF, PAF She was last seen by Dr. Jerome April 2023 when she was stable from a cardiac standpoint and no changes were made to her medical therapy. She was admitted to [facility] September 2023 with acute pneumothorax after having an outpatient [facility]. Shereceived a chest tube. No cardiac decompensation at that office visit. She was recently admitted to [facility] January 2024 after being seen by her PCP for weakness and shortness of breath. She was sent to the ER. She was noted to have elevated lactate and LFTs and was felt to bein cardiogenic shock. She was also found to be in new onset A-fib with RVR. She had a DMITYR guided cardioversion which showed EF of 55% with no thrombus. She was noted to have 3+ MR in setting of severe systemic hypertension with systolic blood pressure 190. After she was placed on nitroprusside and her blood pressure was improved her MR was noted to be 1+. She was noted to have mild aortic stenosis with mean gradient 9 mmHg. Post successful cardioversion she was placed on amiodarone. 2 days later she had a follow-up echocardiogram which showed EF of 48% with low normal RV function, aortic sclerosis, 2+ MR and RVSP 46 mmHg. Her GDMT was titrated and she was discharged home. I saw her in follow-up and her volume status was improved but her EKG showed she was back in A-fib. This was discussedwith Dr. Jerome who recommended reloading with amiodarone and scheduling outpatient cardioversion. She spontaneously converted to sinus rhythm with the amiodarone load and her cardioversion was canceled. She presents today for continued evaluation. Today, she remains in SR with HR 50's. Her BP at home has been running in the low 100's and she feels weak, tired and dizzy with that BP. She denies CP, SOB, PND, orthopnea, edema, palpitations, syncope. Rolando Peters Review of Systems Constitutional: Negative for activity change, chills, diaphoresis, fatigue and fever. HENT: Negative for nosebleeds and trouble swallowing. Eyes: Negative for visual disturbance. Respiratory: Positive for apnea (not using CPAP, has not used for 6-7 years), cough (usually in theAM) and wheezing. Negative for chest tightness and shortness of breath. + orthopnea Cardiovascular: Negative for chest pain, palpitations and leg swelling. Gastrointestinal: Positive for abdominal pain (twinges of pain). Negative for blood in stool, diarrhea, nausea and vomiting. Genitourinary: Negative for hematuria. Musculoskeletal: Positive for arthralgias, gait problem (occasional unsteadiness), myalgias and neck pain (with dizziness). Skin: Negative for color change and rash. Neurological: Positive for dizziness (with BP low) and light-headedness (with BP low). Negative forsyncope and weakness. Hematological: Does not bruise/bleed easily. Psychiatric/Behavioral: Positive for dysphoric mood. Allergies Allergen Reactions Isosulfan Blue Anaphylaxis Methylene Blue Sulfa Antibiotics Rash Outpatient Medications Prior to Visit Medication Sig Dispense Refill albuterol (Ventolin HFA) 108 (90 Base) MCG/ACT inhaler Inhale 2 puffs every 4 hours as needed for wheezing or shortness of breath. 8 g 11 amiodarone (Pacerone) 200 MG tablet Take 1 tablet (200 mg) by mouth daily. Do not start before 2023. 90 tablet 1 apixaban (Eliquis) 5 MG tablet Take 1 tablet (5 mg) by mouth 2 times daily. 180 tablet 1 carvedilol (Coreg) 25 MG tablet Take 1 tablet (25 mg) by mouth in the morning and 1 tablet (25 mg) in the evening. Take with meals. 60 tablet 11 cholecalciferol (Vitamin D-3) 50 MCG (2000 UT) tablet Take 4,000 Units by mouth daily. ezetimibe (Zetia) 10 MG tablet Take 1 tablet (10 mg) by mouth in the morning. 90 tablet 1 Finerenone (Kerendia) 10 MG tablet Take 1 tablet by mouth daily. fluticasone (Cutivate) 0.05 % cream Apply topically Daily as needed (itching). fluticasone (Flonase) 50 MCG/ACT nasal spray Administer 1 spray into each nostril daily. Shake gently. Before first use, prime pump. After use, clean tip and replace cap. Jentadueto XR 2.5-1000 MG per 24 hr tablet take 2 tablets by mouth once daily lansoprazole (Prevacid) [address] capsule 1 capsule in the morning. losartan (Cozaar) 100 MG tablet losartan 100 mg tablet predniSONE (Deltasone) 10 MG tablet Take 10 mg by mouth daily. rosuvastatin (Crestor) 10 MG tablet daily. sertraline (Zoloft) 25 MG tablet Take 1 tablet (25 mg) by mouth daily. 30 tablet 11 tiotropium (Spiriva Respimat) 2.5 MCG/ACT inhaler Inhale 2 puffs daily. 1 each 11 amLODIPine (Norvasc) 5 MG tablet Take 5 mg by mouth daily. furosemide (Lasix) 20 MG tablet Take 1 tablet (20 mg) by mouth daily. 30 tablet 1 Vascepa 1 g capsule TAKE 2 CAPSULES BY MOUTH 2 TIMES DAILY 360 capsule 3 amiodarone (Pacerone) 400 MG tablet Take 1 tablet (400 mg) by mouth 2 times daily for 7 days. 14 tablet 0 tiotropium (Spiriva Respimat) 2.5 MCG/ACT inhaler Inhale 2 puffs daily. 2 each 0 No facility-administered medications prior to visit. Past Medical History: Diagnosis Date Arrhythmia Arthritis Asthma Breast cancer (HCC) 1993 Right Breast(Mastectomy) Breast cancer (HCC) 2010 Left Breast(Simple Mastectomy, SLND) Chronic kidney disease Coronary artery disease Diabetes (HCC) GERD (gastroesophageal reflux disease) High blood pressure Occlusion and stenosis of unspecified carotid artery Pure hypercholesterolemia Syncope and collapse 08/29/2022 Social History Tobacco Use Smoking status: Former Current packs/day: 0.00 Average packs/day: 1 pack/day for 30.0 years (30.0 ttl pk-yrs) Types: Cigarettes Start date: 08/17/1963 Quit date: 08/17/1993 Years since quittin.5 Smokeless tobacco: Never 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: , 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[facility], 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, 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 Substance Use Topics Alcohol use: Yes Alcohol/week: 2.0 - 16.0 standard drinks of alcohol Types: 2 Glasses of wine per week Comment: occ Past Surgical History: Procedure Laterality Date CAROTID ENDARTERECTOMY Right 2008 CATARACT EXTRACTION Bilateral 2006 CHEST TUBE INSERTION Right 10/05/2023 ENDOBRONCHIAL ULTRASOUND EBUS (HISTORICAL) 10/05/2023 MASTECTOMY Left 2010 simple/reconstruction/gingivagrapht MASTECTOMY Right 1993 reconstruction (TRAM) TOTAL ABDOMINAL HYSTERECTOMY W/ BILATERAL SALPINGOOPHORECTOMY 1998 TUBAL LIGATION 1979 Family History Problem Relation Name Age of Onset Ovarian cancer Mother 66 Heart attack Father Lucita (Mother) 76 High Blood Pressure Father Lucita (Mother) Macular degeneration Father Lucita (Mother) Cancer Father Lucita (Mother) Ovarian cancer Mother's Sister 45 Other ([id number]) Son neuofibromatosis, BRCA1 positive Neurofibromatosis Son High Blood Pressure Son Cancer Son hairy cell leukemia Breast cancer Cousin 42 +brca Bladder Cancer Cousin 19 Hypertension Sister Angie Kidney disease Sister Angie Hypertension Sister Mireya Sister Kidney disease Sister Mireya Sister Objective Vitals: 02/15/24 1341 BP: (!) 102/46 BP Location: Left arm Patient Position: Sitting BP Cuff Size: Large adult Pulse: 52 Weight: 139 lb 9.6 oz (63.3 kg) Height: 5' 7.25 (1.708 m) Physical Exam Vitals reviewed. Constitutional: General: She is not in acute distress. Appearance: She is well-developed. HENT: Head: Normocephalic and atraumatic. Mouth/Throat: Mouth: Mucous membranes are moist. Pharynx: Oropharynx is clear. Eyes: General: No scleral icterus. Extraocular Movements: Extraocular movements intact. Neck: Vascular: No JVD. Cardiovascular: Rate and Rhythm: Regular rhythm. Bradycardia present. Heart sounds: Normal heart sounds. No murmur heard. Pulmonary: Effort: Pulmonary effort is normal. Breath sounds: Normal breath sounds. Abdominal: General: Bowel sounds are normal. Palpations: Abdomen is soft. Musculoskeletal: Right lower leg: No edema. Left lower leg: No edema. Neurological: Mental Status: She is alert. Psychiatric: Attention and Perception: Attention normal. Behavior: Behavior is cooperative. Data Reviewed and Summarized EF BP Date Value Ref Range Status 01/22/2024 57 55 - 100 % Final EF Physician Date Value Ref Range Status 01/22/2024 48 % Final Review of tests/labs done/ordered within my specialty: EKG in office: SB with HR 52, Qtc 448 msec. DMITRY 01/20/2024 Left Ventricle: Left ventricle size is normal. Increased wall thickness. Normal left ventricular systolic function. The EF by visual approximation is 55%. Normal wall motion. Right Ventricle: Right ventricle size is normal. Normal systolic function. Mitral Valve: Valve structure is normal. Moderately severe (3+) regurgitation (when systolic BP ~ 190) with a centrally directed jet which improved to mild (1+) regurgitation with addition of nitroprusside. No stenosis noted. Aortic Valve: Mild stenosis of the aortic valve. AV mean gradient is 9 mmHg. Left Atrium: Left atrium is dilated. Normal appendage flow velocity. No left atrial appendage thrombus noted. Successful DMITRY guided cardioversion from atrial fibrillation to normal sinus rhythm. TTE 01/22/2024 Left Ventricle: Left ventricle size is normal. Normal wall thickness. Normal left ventricular systolic function. EF by visual approximation is 48%. Global longitudinal strain is reduced with a value of -14.7%. Normal wall motion. Grade III diastolic dysfunction with increased LAP. Right Ventricle: Right ventricle size is normal. Low normal systolic function. RV Peak S' is 8 cm/s. Aortic Valve: Trileaflet. Cusp sclerosis. Mild (1+) regurgitation. Aortic slcerosis. AV mean gradient is 7 mmHg. AV peak gradient is 12 mmHg. AV peak velocity is 1.7 m/s. Mitral Valve: Moderately thickened leaflets. Moderately calcified leaflets. Mild annular calcification. Moderate (2+) regurgitation with a posterior directed jet. No stenosis noted. Tricuspid Valve: Valve structure is normal. Mild (1+) regurgitation. Mild to moderately elevated RVSP. RVSP is 46 mmHg. Left Atrium: Left atrium is moderately dilated. Right Atrium: Right atrium size is normal. Aorta: Normal sized sinuses of Valsalva and ascending aorta. Pericardium: No pericardial effusion. IVC/SVC: IVC diameter is dilated and decreases greater than 50% during inspiration; therefore the estimated right atrial pressure is intermediate (~8 mmHg). Review of tests/labs done/ordered outside my specialty: Latest Reference Range & Units 01/22/24 00:06 SODIUM 135 - 145 mmol/L 129 (L) POTASSIUM 3.5 - 5.1 mmol/L 4.0 CHLORIDE 98 - 107 mmol/L 102 Carbon Dioxide (CO2) 22 - 30 mmol/L 24 ANION GAP 3 - 13 mmol/L 3 Urea Nitrogen (BUN) 7 - 17 mg/dL 17 Creatinine 0.52 - 1.04 mg/dL 0.87 eGFR >60.0 mL/min/1.73m*2 68.3 GLUCOSE 70 - 100 mg/dL 102 (H) CALCIUM 8.4 - 10.4 mg/dL 7.6 (L) PHOSPHORUS 2.5 - 4.5 mg/dL 2.4 (L) MAGNESIUM 1.6 - 2.3 mg/dL 1.9 ALKALINE PHOSPHATASE - [facility] 38 - 126 U/L 85 ALBUMIN - [facility] 3.5 - 5.0 g/dL 3.4 (L) TOTAL PROTEIN 6.3 - 8.2 g/dL 5.9 (L) AST - [facility] 15 - 46 U/L 90 (H) ALT - [facility] 0 - 34 U/L 139 (H) BILIRUBIN, TOTAL - [facility] 0.2 - 1.3 mg/dL 1.4 (H) Auto WBC 3.6 - 10.7 10*3/uL 8.6 RBC 3.80 - 5.20 10*6/uL 3.13 (L) HEMOGLOBIN 11.7 - 16.0 g/dL 9.6 (L) HEMATOCRIT 35.0 - 47.0 % 29.8 (L) MCV 77.0 - 99.0 fL 95.2 MCH 26.0 - 34.0 pg 30.7 MCHC 30.5 - 36.0 % 32.2 RDW 11.5 - 15.0 % 15.4 (H) Platelets 140 - 440 10*3/uL 209 Mean Platelet Volume (MPV) 9.0 - 12.7 fL 9.9 Neutrophils Relative 38.0 - 82.0 % 76.2 Lymphocytes Relative 15.0 - 45.0 % 10.7 (L) Monocytes Relative 5.0 - 13.0 % 9.2 Eosinophils Relative 0.0 - 6.0 % 2.3 Basophils Relative 0.0 - 2.0 % 0.5 ABSOLUTE LYMPHOCYTES - [facility] 1.0 - 4.3 10*3/uL 0.9 (L) Monocytes Absolute 0.0 - 0.9 10*3/uL 0.8 Eosinophils Absolute 0.0 - 0.5 10*3/uL 0.2 Basophils Absolute 0.0 - 0.2 10*3/uL 0.0 nRBC 0.0 - 2.0 /100 WBCs 0.0 Immature Grans Absolute <0.1 10*3/uL 0.1 (H) Immature Grans % 0.0 - 2.0 % 1.1 Absolute Neutrophils 1.8 - 7.5 10*3/uL 6.5 (L): Data is abnormally low (H): Data is abnormally high Specimen: Blood - Venous blood specimen (specimen) Component Ref Range & Units 2 wk ago Comments Glucose 74 - 99 mg/dL 112 High Sodium 136 - 145 mmol/L 138 Potassium 3.5 - 5.3 mmol/L 4.9 Chloride 98 - 107 mmol/L 100 Bicarbonate 21 - 32 mmol/L 21 Anion Gap 10 - 20 mmol/L 22 High Urea Nitrogen 6 - 23 mg/dL 15 Creatinine 0.50 - 1.05 mg/dL 0.95 eGFR >60 mL/min/1.73m*2 61 Calculations of estimated GFR are performed using the 2020 CKD-EPI Study Refit equation without the race variable for the IDMS-Traceable creatinine methods. https://jasn.asnjournals.org/content///ASN.4382800800 Calcium 8.6 - 10.6 mg/dL 9.4 Albumin 3.4 - 5.0 g/dL 3.6 Alkaline Phosphatase 33 - 136 U/L 47 Total Protein 6.4 - 8.2 g/dL 5.8 Low AST 9 - 39 U/L 13 Bilirubin, Total 0.0 - 1.2 mg/dL 0.7 ALT 7 - 45 U/L 24 Patients treated with Sulfasalazine may generate falsely decreased results for ALT. Resulting Agency [facility] Specimen Collected: 02/01/24 15:01 Performed by: [facility] Last Resulted: 02/01/24 21:53 Received From: [facility] Result Received: 02/02/24 08:31 Independent interpretation of tests: SUJATA Montoya CNP documented in this [facility]07-01-2024 Instructions* Patient Instructions* SUJATA Enamorado CNP - 02/15/2024 1:30 PM EDT Stop amlodipine Only use the lasix when needed (weight gain of more than 3 lbs overnight or 5 lbs in 1 week) Call me next week if you are not feeling better documented in this [facility]07-01-2024 Evaluation + Plan note* Assessment & Plan Note - SUJATA Enamorado CNP - 02/15/2024 8:49 AM EDTAssociated Problem(s): Obstructive sleep apnea syndrome History of INGA but has not used CPAP for 6 or 7 years. Due to new onset A-fib and heart failure, I am recommending a home sleep study. She states she has lost quite a bit of weight since she was initially diagnosed with sleep apnea so it is unclear if she would still need CPAP. -Home sleep study pending, [facility] ordered [id number] Miscellaneous Notes* Assessment & Plan Note - SUJATA Enamorado CNP - 02/15/2024 8:49 AM EDTAssociated Problem(s): Obstructive sleep apnea syndrome History of INGA but has not used CPAP for 6 or 7 years. Due to new onset A-fib and heart failure, I am recommending a home sleep study. She states she has lost quite a bit of weight since she was initially diagnosed with sleep apnea so it is unclear if she would still need CPAP. 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 Diabetic related disease. -Continue diabetic management -Continue losartan and Finerenone which is managed by Dr. Livingston -Consider SGLT2i given ASCVD+DM2+CKD. Will defer to Renal and Endocrine. * Assessment & Plan Note - SUJATA Enamorado CNP - 02/15/2024 8:48 AM EDTAssociated Problem(s): Dyslipidemia Target LDL <70. LDL 62 (11/2023) - Cont zetia - Cont crestor - Cont Vascepa. -Cont lifestyle mgt given elev TG; if much higher over time, consider Tricor * Assessment & Plan Note - SUJATA Enamorado CNP - 02/15/2024 8:48 AM EDTAssociated Problem(s): Bilateral carotid artery stenosis Moderate. Coronary risk equivalent. No symptoms. She has a history of right carotid endarterectomy. -Carotid US 04/2024 -Given ASCVD and DM2 consider add SGLT2i (will hold off for now since we are starting lasix) * Assessment & Plan Note - SUJATA Enamorado CNP - 02/15/2024 8:47 AM EDTAssociated Problem(s): Essential hypertension Goal less than 130/80. History of supine hypertension with orthostasis. Hypotensive today. -Previously taken off hydrochlorothiazide due to orthostasis - stop amlodipine -Continue carvedilol, losartan * Assessment & Plan Note - SUJATA Enamorado CNP - 02/15/2024 8:47 AM EDTAssociated Problem(s): Elevated LFTs Elevated LFTs during recent hospitalization in setting of cardiogenic shock. LFTs have been improving with diuresis. 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 EF 48% per echocardiogram January 2024. No current heart failure symptoms and appearseuvolemic on physical exam, she may even be a little dry -Continue carvedilol 25 mg p.o. twice daily -Continue losartan 100 mg p.o. daily -change Lasix 20 mg p.o. daily prn (she may not need daily diuretic since she is back in SR) -Heart failure self-care reviewed * Assessment & Plan Note - SUJATA Enamorado CNP - 02/15/2024 8:46 AM EDTAssociated Problem(s): On amiodarone therapy On amiodarone for rhythm suppression. -Continue amiodarone -TSH and LFTs every 6 months, due July 2024 * Assessment & Plan Note - SUJATA Enamorado CNP - 02/15/2024 8:46 AM EDTAssociated Problem(s): On continuous oral anticoagulation Tolerating Eliquis without abnormal bleeding. -Continue Eliquis -CBC and BMP every 6 months, due July 2024 * Assessment & Plan Note - SUJATA Enamorado CNP - 02/15/2024 8:46 AM EDTAssociated Problem(s): PAF (paroxysmal atrial fibrillation) ([facility]) Nonvalvular. S/p DMITRY/DCC 01/2024. On amiodarone for rhythm suppression as she had heart failure whenshe was in A-fib. Recurrent A-fib on hospital follow-up 02/01/2024 and she was reloaded with amiodarone. Spontaneous conversion to sinus rhythm per EKG 02/09/2024 and repeat cardioversion canceled. Remains in sinus rhythm today. -Refer to EP for further evaluation (previously ordered) -Continue carvedilol 25 mg p.o. twice daily (would decrease to 12.5 mg po daily if her BP does not improve with stopping amlodipine or is HR remains in low 50's) Continue amiodarone 200 mg p.o. daily -Continue Eliquis 5 mg p.o. 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 Diabetic related disease. -Continue diabetic management -Continue losartan and Finerenone which is managed by Dr. Livingston -Consider SGLT2i given ASCVD+DM2+CKD. Will defer to Renal and Endocrine. [facility] [id number] Evaluation + Plan note* Assessment & Plan Note - SUJATA Enamorado CNP - 02/15/2024 8:48 AM EDTAssociated Problem(s): Dyslipidemia Target LDL <70. LDL 62 (11/2023) - Cont zetia - Cont crestor - Cont Vascepa. -Cont lifestyle mgt given elev TG; if much higher over time, consider Tricor [facility] [id number] Evaluation + Plan note* Assessment & Plan Note - SUJATA Enamorado CNP - 02/15/2024 8:48 AM EDTAssociated Problem(s): Bilateral carotid artery stenosis Moderate. Coronary risk equivalent. No symptoms. She has a history of right carotid endarterectomy. -Carotid US 04/2024 -Given ASCVD and DM2 consider add SGLT2i (will hold off for now since we are starting lasix) [facility] [id number] Evaluation + Plan note* Assessment & Plan Note - SUJATA Enamorado CNP - 02/15/2024 8:47 AM EDTAssociated Problem(s): Essential hypertension Goal less than 130/80. History of supine hypertension with orthostasis. Hypotensive today. -Previously taken off hydrochlorothiazide due to orthostasis - stop amlodipine -Continue carvedilol, losartan [facility] [id number] Evaluation + Plan note* Assessment & Plan Note - SUJATA Enamorado CNP - 02/15/2024 8:47 AM EDTAssociated Problem(s): Elevated LFTs Elevated LFTs during recent hospitalization in setting of cardiogenic shock. LFTs have been improving with diuresis. 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 EF 48% per echocardiogram January 2024. No current heart failure symptoms and appearseuvolemic on physical exam, she may even be a little dry -Continue carvedilol 25 mg p.o. twice daily -Continue losartan 100 mg p.o. daily -change Lasix 20 mg p.o. daily prn (she may not need daily diuretic since she is back in SR) -Heart failure self-care reviewed [facility] [id number] Evaluation + Plan note* Assessment & Plan Note - SUJATA Enamorado CNP - 02/15/2024 8:46 AM EDTAssociated Problem(s): On amiodarone therapy On amiodarone for rhythm suppression. -Continue amiodarone -TSH and LFTs every 6 months, due July 2024 [place] [id number] Evaluation + Plan note* Assessment & Plan Note - SUJATA Enamorado CNP - 02/15/2024 8:46 AM EDTAssociated Problem(s): On continuous oral anticoagulation Tolerating Eliquis without abnormal bleeding. -Continue Eliquis -CBC and BMP every 6 months, due July 2024 [facility] [id number] Evaluation + Plan note* Assessment & Plan Note - SUJATA Enamorado CNP - 02/15/2024 8:46 AM EDTAssociated Problem(s): PAF (paroxysmal atrial fibrillation) (HCC) Nonvalvular. S/p DMITRY/DCC 01/2024. On amiodarone for rhythm suppression as she had heart failure whenshe was in A-fib. Recurrent A-fib on hospital follow-up 02/01/2024 and she was reloaded with amiodarone. Spontaneous conversion to sinus rhythm per EKG 02/09/2024 and repeat cardioversion canceled. Remains in sinus rhythm today. -Refer to EP for further evaluation (previously ordered) -Continue carvedilol 25 mg p.o. twice daily (would decrease to 12.5 mg po daily if her BP does not improve with stopping amlodipine or is HR remains in low 50's) Continue amiodarone 200 mg p.o. daily -Continue Eliquis 5 mg p.o. twice daily (filled by [facility]) [facility] [id number] History of Present illness Narrative* Bob Guerra RN - 02/09/2024 1:00 PM EDT Spoke with pt in normal sinus, and advised cardioversion would be cancelled tomorrow since she is in normal sinus. She is finishing her Amiodarone dosing schedule of 400mg until 02/11/24, requesting if now that she is in normal sinus she would start the 200mg now instead. She is also inquiring abouta hotler monitor to detect burden of afib as she never knows when she is in afib. * SUJATA Enamorado CNP - 02/09/2024 1:00 PM EDT EKG reviewed. She is back in sinus with PACs. Okay to decrease amiodarone to 200 mg p.o. daily. A Holter monitor is only for 24 to 48 hours so that would not get us good information. She would have to wear it for 30 days for us to try to determine her A-fib burden. The best way she could tell at home would be to either get a [employer] mobile sebastian or to check her blood pressure at home and monitor herheart rate. When she is in A-fib her heart rate is significantly higher than it is now. * Bob Guerra RN - 02/09/2024 1:00 PM EDT Informed pt of recs. Verbalized understanding. No further questions at this time. documented in this encounterSSt. John of God [id number] Telephone encounter Note* Telephone Encounter - Bob Guerra RN - 02/08/2024 4:11 PM EDT Informed Rolando of recs. Verbalized understanding. Wants to come in for EKG tomorrow. [facility] [id number] Miscellaneous Notes* Telephone Encounter - Bob Guerra RN - 02/08/2024 4:11 PM EDT Informed Rolando of recs. Verbalized understanding. Wants to come in for EKG tomorrow. * Telephone Encounter - SUJATA Enamorado CNP - 02/08/2024 4:05 PM EDT We had increased her amiodarone to reload her last week. That occasionally will cause people not tofeel well. There is a vital sign sheet from her home health agency scanned into [employer]. I reviewed it. It stated that her heart rate was in the 60s and regular. It is possible that she spontaneously converted back to sinus rhythm. If she wants, she could come to the office tomorrow for an EKG. If sheis in sinus rhythm we could cancel her cardioversion on Thursday. Otherwise, I would keep her appointment for her cardioversion on Thursday. * Telephone Encounter - Haley Vergara - 02/08/2024 2:45 PM EDT Patient called asking to speak with Luh to fill her in on a few things. She said her blood pressure and blood sugar have been lower than usual over the past couple of days. Blood sugar was around 86-87 and blood pressure yesterday was 94 (did not know the lower number) and went up to 130-75. She said today it was at 116/65. She was wondering if either of them or both of them combined could be contributing to her feeling terrible and faint. documented in this [facility]06-24-2024 Telephone encounter Note* Telephone Encounter - SUJATA Enamorado CNP - 02/08/2024 4:05 PM EDT We had increased her amiodarone to reload her last week. That occasionally will cause people not tofeel well. There is a vital sign sheet from her home health agency scanned into [employer]. I reviewed it. It stated that her heart rate was in the 60s and regular. It is possible that she spontaneously converted back to sinus rhythm. If she wants, she could come to the office tomorrow for an EKG. If sheis in sinus rhythm we could cancel her cardioversion on Thursday. Otherwise, I would keep her appointment for her cardioversion on Thursday. [facility] [id number] Telephone encounter Note* Telephone Encounter - Haley Vergara - 02/08/2024 2:45 PM EDT Patient called asking to speak with Luh to fill her in on a few things. She said her blood pressure and blood sugar have been lower than usual over the past couple of days. Blood sugar was around 86-87 and blood pressure yesterday was 94 (did not know the lower number) and went up to 130-75. She said today it was at 116/65. She was wondering if either of them or both of them combined could be contributing to her feeling terrible and faint. [facility] [id number] Telephone encounter Note* Telephone Encounter - Namita Armando - 02/05/2024 11:14 AM EDT Received fax from [employer] requesting refill of Furosemide 20 mg, 90 day supply to be sent to [facility]. [facility] [id number] Miscellaneous Notes* Telephone Encounter - Namita Armando - 02/05/2024 11:14 AM EDT Received fax from [employer] requesting refill of Furosemide 20 mg, 90 day supply to be sent to [facility] documented in this encounterSSt. John of God [id number] Telephone encounter Note* Telephone Encounter - SUJATA Enamorado CNP - 02/04/2024 2:04 PM EDT Returned phone call to Celia. I got her voicemail. I left a message that I am not concerned about her blood pressure as long as she is asymptomatic. I clarified the amiodarone dosing. She was instructed to call the office with any other questions or concerns. [facility] [id number] Miscellaneous Notes* Telephone Encounter - SUJATA Enamorado CNP - 02/04/2024 2:04 PM EDT Returned phone call to Celia. I got her voicemail. I left a message that I am not concerned about her blood pressure as long as she is asymptomatic. I clarified the amiodarone dosing. She was instructed to call the office with any other questions or concerns. * Telephone Encounter - Namita Armando - 02/04/2024 1:56 PM EDT Celia from [facility] called, , saw patient today and wanted to report patient's blood pressure was 138/40, patient asymptomatic. documented in this encounterSSt. John of God [id number] Telephone encounter Note* Telephone Encounter - Namita Armando - 02/04/2024 1:56 PM EDT Celia from [facility] called, , saw patient today and wanted to report patient's blood pressure was 138/40, patient asymptomatic. [facility] [id number] Telephone encounter Note* Telephone Encounter - SUAJTA Enamorado CNP - 02/03/2024 11:55 AM EDT Thank you. I was waiting for someone to send it to me to complete! [facility] [id number] Miscellaneous Notes* Telephone Encounter - SUJATA Enamorado CNP - 02/03/2024 11:55 AM EDT Thank you. I was waiting for someone to send it to me to complete! * Telephone Encounter - Mai Alfred RN - 02/02/2024 1:55 PM EDT You are scheduled for DCC with Dr. Craft on 02/10/24 at 9:00am. Please arrive by 7:30 am. You will need a designated drop hammer pile driver operator for the day of your procedure to take you home Nothing to eat or drink after midnight Please take your am medications with sips of water prior to leaving for the hospital. Hold furosemide and Jentadueto the morning of procedure. Get blood work done by (done 01/19/24 and 01/22/24) Prepare for a possible overnight stay -Spoke with pt via phone and completed above instructions. Pt verbalized understanding and knows tocall the office with questions or concerns. * Telephone Encounter - Loly Cooper - 02/02/2024 9:50 AM EDT Patient agreed to have DCC with Dr. Craft on 02/10/24 at 9 am at [facility]. BMP: 01-19-24 CBC: 01-22-24 EK02-01-24 H&P OV: 02-01-24 Please route this encounter to the appropriate SEBASTIAN. * Telephone Encounter - SUJATA Enamorado CNP - 02/02/2024 9:24 AM EDT PC to patient to review lab results. Liver enzymes have normalized. As previously discussed with Dr. Jerome, will increase amiodarone to 400 mg p.o. twice daily x 1 week and will schedule a cardioversion at [place] next week. She already has a follow-up scheduled with me in the [facility] office 1 week post cardioversion. She was instructed to not miss any doses of Eliquis prior to her cardioversion. A new prescription for the higher dose of amiodarone was sent to her local pharmacy. Contains abnormal data Comprehensive Metabolic Panel Order: [id number] Component Ref Range & Units 1 d ago Glucose 74 - 99 mg/dL 112 High Sodium 136 - 145 mmol/L 138 Potassium 3.5 - 5.3 mmol/L 4.9 Chloride 98 - 107 mmol/L 100 Bicarbonate 21 - 32 mmol/L 21 Anion Gap 10 - 20 mmol/L 22 High Urea Nitrogen 6 - 23 mg/dL 15 Creatinine 0.50 - 1.05 mg/dL 0.95 eGFR >60 mL/min/1.73m*2 61 Comment: Calculations of estimated GFR are performed using the 2020 CKD-EPI Study Refit equation without the race variable for the IDMS-Traceable creatinine methods. https://jasn.asnjournals.org/content/early//ASN.5133878758 Calcium 8.6 - 10.6 mg/dL 9.4 Albumin 3.4 - 5.0 g/dL 3.6 Alkaline Phosphatase 33 - 136 U/L 47 Total Protein 6.4 - 8.2 g/dL 5.8 Low AST 9 - 39 U/L 13 Bilirubin, Total 0.0 - 1.2 mg/dL 0.7 ALT 7 - 45 U/L 24 Comment: Patients treated with Sulfasalazine may generate falsely decreased results for ALT. Resulting Agency [facility] documented in this [facility]06-19-2024 History and physical note* SUJATA Dunne CNP - 02/03/2024 11:05 AM EDT Images from the original note were not included. Office Visit 02/01/2024 [facility] Cardiology SUJATA Enamorado CNP Nurse Practitioner Acute Care PAF (paroxysmal atrial fibrillation) (HCC) +10 more Dx Hospital Follow-up Atrial Fibrillation Congestive Heart Failure Reason for Visit Progress Notes SUJATA Enamorado CNP (Nurse Practitioner) Cardiology Expand All Collapse All [facility] CARDIOLOGY [address] [place] [address] [address] [facility] [address] Dept: [phone] Dept Visit type: Established : 1945 Reason for Visit: Hospital Follow-up, Atrial Fibrillation, and Congestive Heart Failure Assessment and Plan 1. PAF (paroxysmal atrial fibrillation) (HCC) Assessment & Plan: Nonvalvular. S/p DMITRY/DCC 01/2024. On amiodarone for rhythm suppression as she had heart failure whenshe was in A-fib. She is back in A-fib with controlled heart rate in the 70s. She is symptomatic with heart failure symptoms. -Discussed with Dr. Jerome, will recheck a CMP and if her liver enzymes are trending down would reload with amiodarone 400 mg p.o. twice daily x 1 week and schedule cardioversion in 1 week -Refer to EP for further evaluation -Continue carvedilol 25 mg p.o. twice daily -Continue Eliquis 5 mg p.o. twice daily (sent to [facility] to assist with cost) Orders: - ECG 12 lead - CLINIC PERFORMED - Home sleep test - amiodarone (Pacerone) 200 MG tablet; Take 1 tablet (200 mg) by mouth daily., Starting Thu02/01/2024, Normal - apixaban (Eliquis) 5 MG tablet; Take 1 tablet (5 mg) by mouth 2 times daily., Starting Thu02/01/2024, Normal - [facility] 2. On continuous oral anticoagulation Assessment & Plan: Tolerating Eliquis without abnormal bleeding. -Continue Eliquis -CBC and BMP every 6 months, due July 2024 Orders: - apixaban (Eliquis) 5 MG tablet; Take 1 tablet (5 mg) by mouth 2 times daily., Starting Thu02/01/2024, Normal 3. On amiodarone therapy Assessment & Plan: On amiodarone for rhythm suppression. -Continue amiodarone -TSH and LFTs every 6 months, due July 2024 -Will recheck LFTs today as they were elevated during her hospitalization due to cardiogenic shock to ensure they are trending down 4. Elevated LFTs Assessment & Plan: Elevated LFTs during recent hospitalization in setting of cardiogenic shock. -Recheck CMP to ensure her LFTs are downtrending 5. 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 EF 48% per echocardiogram January 2024. Current heart failure symptoms include dyspnea on exertion, mild lower extremity edema and orthopnea. She does not appear grossly volume overloaded on physical exam. -Continue carvedilol 25 mg p.o. twice daily -Continue losartan 100 mg p.o. daily -Start Lasix 20 mg p.o. daily -Recheck proBNP -Heart failure self-care reviewed Orders: - Home sleep test - furosemide (Lasix) 20 MG tablet; Take 1 tablet (20 mg) by mouth daily., Starting Thu02/01/2024, Until Thu01/31/2025, Normal - Comprehensive metabolic panel - NT PRO BNP 6. Essential hypertension Assessment & Plan: Controlled. Goal less than 130/80. History of supine hypertension with orthostasis. -Previously taken off hydrochlorothiazide due to orthostasis -Continue amlodipine, carvedilol, losartan 7. Bilateral carotid artery stenosis Assessment & Plan: Moderate. Coronary risk equivalent. No symptoms. She has a history of right carotid endarterectomy. -Carotid US 04/2024 -Given ASCVD and DM2 consider add SGLT2i (will hold off for now since we are starting lasix) 8. Dyslipidemia Assessment & Plan: Target LDL <70. LDL 62 (11/2023) - Cont zetia - Cont crestor - Cont Vascepa. -Cont lifestyle mgt given elev TG; if much higher over time, consider Tricor Orders: - ezetimibe (Zetia) 10 MG tablet; Take 1 tablet (10 mg) by mouth in the morning., Starting 02/01/2024, Normal 9. 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 Diabetic related disease. -Continue diabetic management -Continue losartan and Finerenone which is managed by Dr. Livingston -Consider SGLT2i given ASCVD+DM2+CKD. Will defer to Renal and Endocrine. 10. INGA (obstructive sleep apnea) - Home sleep test 11. Obstructive sleep apnea syndrome Assessment & Plan: History of INGA but has not used CPAP for 6 or 7 years. Due to new onset A-fib and heart failure, I am recommending a home sleep study. She states she has lost quite a bit of weight since she was initially diagnosed with sleep apnea so it is unclear if she would still need CPAP. -Home sleep study Follow up in about 2 weeks (around 02/15/2024). Subjective Hx of carotid dz and CEA, breast CA, CKD stage II, tobacco abuse, COPD, HTN, HFmrEF, PAF She was last seen by Dr. Jerome April 2023 when she was stable from a cardiac standpoint and no changes were made to her medical therapy. She was admitted to [facility] September 2023 with acute pneumothorax after having an outpatient [facility]. Shereceived a chest tube. No cardiac decompensation at that office visit. She was recently admitted to [facility] January 2024 after being seen by her PCP for weakness and shortness of breath. She was sent to the ER. She was noted to have elevated lactate and LFTs and was felt to bein cardiogenic shock. She was also found to be in new onset A-fib with RVR. She had a DMITRY guided cardioversion which showed EF of 55% with no thrombus. She was noted to have 3+ MR in setting of severe systemic hypertension with systolic blood pressure 190. After she was placed on nitroprusside and her blood pressure was improved her MR was noted to be 1+. She was noted to have mild aortic stenosis with mean gradient 9 mmHg. Post successful cardioversion she was placed on amiodarone. 2 days later she had a follow-up echocardiogram which showed EF of 48% with low normal RV function, aortic sclerosis, 2+ MR and RVSP 46 mmHg. Her GDMT was titrated and she was discharged home. She presents todayfor continued follow-up. Today, she is still having some weakness, CRUZ and occasional lower extremity edema. She has orthopnea symptoms and feels more comfortable sleeping in a recliner. Her weight is down 11 pounds from herlast office visit in April 2023, but she had lost some weight prior to her hospitalization. Shehas occasional dizziness and lightheadedness. Her symptoms are consistent with volume overload.Her EKG shows she is back in Afib. Rolando Peters Review of Systems Constitutional: Negative for activity change, chills, diaphoresis, fatigue and fever. HENT: Positive for nosebleeds (small amount when blowing her nose). Negative for trouble swallowing. Eyes: Negative for visual disturbance. Respiratory: Positive for apnea (not using CPAP, has not used for 6-7 years), cough (usually in theAM), shortness of breath (CRUZ) and wheezing. Negative for chest tightness. + orthopnea Cardiovascular: Positive for leg swelling (if feet dependent, improves with elevation). Negative for chest pain and palpitations. Gastrointestinal: Negative for abdominal distention, abdominal pain, blood in stool, diarrhea, nausea and vomiting. Genitourinary: Negative for hematuria. Musculoskeletal: Positive for arthralgias, gait problem (occasional unsteadiness) and myalgias. Skin: Negative for color change and rash. Neurological: Positive for dizziness (since yesterday) and light-headedness (since yesterday). Negative for syncope and weakness. Hematological: Does not bruise/bleed easily. Psychiatric/Behavioral: Positive for dysphoric mood. Allergies Allergies Allergen Reactions Isosulfan Blue Anaphylaxis Methylene Blue Sulfa Antibiotics Rash Medications Prior to Visit Outpatient Medications Prior to Visit Medication Sig Dispense Refill albuterol (Ventolin HFA) 108 (90 Base) MCG/ACT inhaler Inhale 2 puffs every 4 hours as needed for wheezing or shortness of breath. 8 g 11 amLODIPine (Norvasc) 5 MG tablet Take 5 mg by mouth daily. atovaquone (Mepron) 750 MG/5ML suspension Take 10 mL (1,500 mg) by mouth daily. 300 mL 3 carvedilol (Coreg) 25 MG tablet Take 1 tablet (25 mg) by mouth in the morning and 1 tablet (25 mg) in the evening. Take with meals. 60 tablet 11 cholecalciferol (Vitamin D-3) 50 MCG (2000 UT) tablet Take 4,000 Units by mouth daily. Finerenone (Kerendia) 10 MG tablet Take 1 tablet by mouth daily. fluticasone (Cutivate) 0.05 % cream Apply topically Daily as needed (itching). fluticasone (Flonase) 50 MCG/ACT nasal spray Administer 1 spray into each nostril daily. Shake gently. Before first use, prime pump. After use, clean tip and replace cap. Jentadueto XR 2.5-1000 MG per 24 hr tablet take 2 tablets by mouth once daily lansoprazole (Prevacid) [address] capsule 1 capsule in the morning. losartan (Cozaar) 100 MG tablet losartan 100 mg tablet predniSONE (Deltasone) 10 MG tablet Take 2 tablets (20 mg) by mouth daily. Take 2 tablets (20mg) daily x 4 weeks, then 1 tablet (10mg) daily x 4 weeks 60 tablet 0 rosuvastatin (Crestor) 10 MG tablet daily. sertraline (Zoloft) 25 MG tablet Take 1 tablet (25 mg) by mouth daily. 30 tablet 11 tiotropium (Spiriva Respimat) 2.5 MCG/ACT inhaler Inhale 2 puffs daily. 1 each 11 Vascepa 1 g capsule TAKE 2 CAPSULES BY MOUTH 2 TIMES DAILY 360 capsule 3 amiodarone (Pacerone) 200 MG tablet Take 2 tablets (400 mg) by mouth 2 times daily for 11 days, THEN 1 tablet (200 mg) daily. Take 2 tablets twice daily starting 01/23/24 through 02/01/24. Starting 02/02/24, take 1 tablet once daily.. 60 tablet 1 apixaban (Eliquis) 5 MG tablet Take 1 tablet (5 mg) by mouth 2 times daily. 60 tablet 3 aspirin 81 MG chewable tablet daily. ezetimibe (Zetia) 10 MG tablet Take 1 tablet (10 mg) by mouth in the morning. 90 tablet 1 colchicine 0.6 MG tablet Take 0.6 mg by mouth daily. No facility-administered medications prior to visit. Medical History Past Medical History: Diagnosis Date Arrhythmia Arthritis Asthma Breast cancer (HCC) 1993 Right Breast(Mastectomy) Breast cancer (HCC) 2010 Left Breast(Simple Mastectomy, SLND) Chronic kidney disease Coronary artery disease Diabetes (HCC) GERD (gastroesophageal reflux disease) High blood pressure Occlusion and stenosis of unspecified carotid artery Pure hypercholesterolemia Syncope and collapse 08/29/2022 Social History Tobacco Use Smoking status: Former Packs/day: 1.00 Years: 30.00 Additional pack years: 0.00 Total pack years: 30.00 Types: Cigarettes Quit date: 08/17/1993 Years since quittin.4 Smokeless tobacco: Never 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: , 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[facility], 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, 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 Substance Use Topics Alcohol use: Yes Alcohol/week: 2.0 - 16.0 standard drinks of alcohol Types: 2 Glasses of wine per week Comment: occ Surgical History Past Surgical History: Procedure Laterality Date CAROTID ENDARTERECTOMY Right 2009 CATARACT EXTRACTION Bilateral 2006 CHEST TUBE INSERTION Right 10/05/2023 ENDOBRONCHIAL ULTRASOUND EBUS (HISTORICAL) 10/05/2023 MASTECTOMY Left 2010 simple/reconstruction/gingivagrapht MASTECTOMY Right 1993 reconstruction (TRAM) TOTAL ABDOMINAL HYSTERECTOMY W/ BILATERAL SALPINGOOPHORECTOMY 1998 TUBAL LIGATION 1979 Family History Family History Problem Relation Name Age of Onset Ovarian cancer Mother 66 Heart attack Father Lucita (Mother) 76 High Blood Pressure Father Lucita (Mother) Macular degeneration Father Lucita (Mother) Cancer Father Lucita (Mother) Ovarian cancer Mother's Sister 45 Other ([id number]) Son neuofibromatosis, BRCA1 positive Neurofibromatosis Son High Blood Pressure Son Cancer Son hairy cell leukemia Breast cancer Cousin 42 +brca Bladder Cancer Cousin 19 Hypertension Sister Angie Kidney disease Sister Angie Hypertension Sister Mireya Sister Kidney disease Sister Mireya Sister Objective Vitals Vitals: 02/01/24 1300 02/01/24 1305 BP: (!) 106/40 (!) 106/40 BP Location: Left arm Left arm Patient Position: Lying Sitting BP Cuff Size: Adult Adult Pulse: 74 Resp: 15 Weight: 143 lb (64.9 kg) Height: 5' 7 (1.702 m) Physical Exam Vitals reviewed. Constitutional: General: She is not in acute distress. Appearance: She is well-developed. HENT: Head: Normocephalic and atraumatic. Mouth/Throat: Mouth: Mucous membranes are moist. Pharynx: Oropharynx is clear. Eyes: General: No scleral icterus. Extraocular Movements: Extraocular movements intact. Neck: Vascular: No JVD. Cardiovascular: Rate and Rhythm: Normal rate. Rhythm irregularly irregular. Heart sounds: Normal heart sounds. No murmur heard. Comments: Trace pedal edema Pulmonary: Effort: Pulmonary effort is normal. Breath sounds: Examination of the right-lower field reveals decreased breath sounds. Examination ofthe left-lower field reveals decreased breath sounds. Decreased breath sounds present. Abdominal: General: Bowel sounds are normal. Palpations: Abdomen is soft. Musculoskeletal: Right lower leg: Edema present. Left lower leg: Edema present. Neurological: Mental Status: She is alert. Psychiatric: Attention and Perception: Attention normal. Behavior: Behavior is cooperative. Data Reviewed and Summarized EF BP Date Value Ref Range Status 01/22/2024 57 55 - 100 % Final EF Physician Date Value Ref Range Status 01/22/2024 48 % Final Review of tests/labs done/ordered within my specialty: EKG in office: Afib with HR 74, Qtc 421 msec. DMITRY 01/20/2024 Left Ventricle: Left ventricle size is normal. Increased wall thickness. Normal left ventricular systolic function. The EF by visual approximation is 55%. Normal wall motion. Right Ventricle: Right ventricle size is normal. Normal systolic function. Mitral Valve: Valve structure is normal. Moderately severe (3+) regurgitation (when systolic BP ~ 190) with a centrally directed jet which improved to mild (1+) regurgitation with addition of nitroprusside. No stenosis noted. Aortic Valve: Mild stenosis of the aortic valve. AV mean gradient is 9 mmHg. Left Atrium: Left atrium is dilated. Normal appendage flow velocity. No left atrial appendage thrombus noted. Successful DMITRY guided cardioversion from atrial fibrillation to normal sinus rhythm. TTE 01/22/2024 Left Ventricle: Left ventricle size is normal. Normal wall thickness. Normal left ventricular systolic function. EF by visual approximation is 48%. Global longitudinal strain is reduced with a value of -14.7%. Normal wall motion. Grade III diastolic dysfunction with increased LAP. Right Ventricle: Right ventricle size is normal. Low normal systolic function. RV Peak S' is 8 cm/s. Aortic Valve: Trileaflet. Cusp sclerosis. Mild (1+) regurgitation. Aortic slcerosis. AV mean gradient is 7 mmHg. AV peak gradient is 12 mmHg. AV peak velocity is 1.7 m/s. Mitral Valve: Moderately thickened leaflets. Moderately calcified leaflets. Mild annular calcification. Moderate (2+) regurgitation with a posterior directed jet. No stenosis noted. Tricuspid Valve: Valve structure is normal. Mild (1+) regurgitation. Mild to moderately elevated RVSP. RVSP is 46 mmHg. Left Atrium: Left atrium is moderately dilated. Right Atrium: Right atrium size is normal. Aorta: Normal sized sinuses of Valsalva and ascending aorta. Pericardium: No pericardial effusion. IVC/SVC: IVC diameter is dilated and decreases greater than 50% during inspiration; therefore the estimated right atrial pressure is intermediate (~8 mmHg). Review of tests/labs done/ordered outside my specialty: Latest Reference Range & Units 01/22/24 00:06 SODIUM 135 - 145 mmol/L 129 (L) POTASSIUM 3.5 - 5.1 mmol/L 4.0 CHLORIDE 98 - 107 mmol/L 102 Carbon Dioxide (CO2) 22 - 30 mmol/L 24 ANION GAP 3 - 13 mmol/L 3 Urea Nitrogen (BUN) 7 - 17 mg/dL 17 Creatinine 0.52 - 1.04 mg/dL 0.87 eGFR >60.0 mL/min/1.73m*2 68.3 GLUCOSE 70 - 100 mg/dL 102 (H) CALCIUM 8.4 - 10.4 mg/dL 7.6 (L) PHOSPHORUS 2.5 - 4.5 mg/dL 2.4 (L) MAGNESIUM 1.6 - 2.3 mg/dL 1.9 ALKALINE PHOSPHATASE - [facility] 38 - 126 U/L 85 ALBUMIN - [facility] 3.5 - 5.0 g/dL 3.4 (L) TOTAL PROTEIN 6.3 - 8.2 g/dL 5.9 (L) AST - [facility] 15 - 46 U/L 90 (H) ALT - [facility] 0 - 34 U/L 139 (H) BILIRUBIN, TOTAL - [facility] 0.2 - 1.3 mg/dL 1.4 (H) Auto WBC 3.6 - 10.7 10*3/uL 8.6 RBC 3.80 - 5.20 10*6/uL 3.13 (L) HEMOGLOBIN 11.7 - 16.0 g/dL 9.6 (L) HEMATOCRIT 35.0 - 47.0 % 29.8 (L) MCV 77.0 - 99.0 fL 95.2 MCH 26.0 - 34.0 pg 30.7 MCHC 30.5 - 36.0 % 32.2 RDW 11.5 - 15.0 % 15.4 (H) Platelets 140 - 440 10*3/uL 209 Mean Platelet Volume (MPV) 9.0 - 12.7 fL 9.9 Neutrophils Relative 38.0 - 82.0 % 76.2 Lymphocytes Relative 15.0 - 45.0 % 10.7 (L) Monocytes Relative 5.0 - 13.0 % 9.2 Eosinophils Relative 0.0 - 6.0 % 2.3 Basophils Relative 0.0 - 2.0 % 0.5 ABSOLUTE LYMPHOCYTES - [facility] 1.0 - 4.3 10*3/uL 0.9 (L) Monocytes Absolute 0.0 - 0.9 10*3/uL 0.8 Eosinophils Absolute 0.0 - 0.5 10*3/uL 0.2 Basophils Absolute 0.0 - 0.2 10*3/uL 0.0 nRBC 0.0 - 2.0 /100 WBCs 0.0 Immature Grans Absolute <0.1 10*3/uL 0.1 (H) Immature Grans % 0.0 - 2.0 % 1.1 Absolute Neutrophils 1.8 - 7.5 10*3/uL 6.5 (L): Data is abnormally low (H): Data is abnormally high Contains abnormal data Renal Function Panel Order: [id number] Component Ref Range & Units 5 d ago Glucose 74 - 99 mg/dL 179 High Sodium 136 - 145 mmol/L 133 Low Potassium 3.5 - 5.3 mmol/L 4.8 Chloride 98 - 107 mmol/L 98 Bicarbonate 21 - 32 mmol/L 23 Anion Gap 10 - 20 mmol/L 17 Urea Nitrogen 6 - 23 mg/dL 19 Creatinine 0.50 - 1.05 mg/dL 0.89 eGFR >60 mL/min/1.73m*2 66 Comment: Calculations of estimated GFR are performed using the 2020 CKD-EPI Study Refit equation without the race variable for the IDMS-Traceable creatinine methods. https://jasn.asnjournals.org/content/early/ASN.4263714903 Calcium 8.6 - 10.6 mg/dL 9.0 Phosphorus 2.5 - 4.9 mg/dL 4.2 Comment: The performance characteristics of phosphorus testing in heparinized plasma have been validated by the individual laboratory site where testing is performed. Testing on heparinized plasmais not approved by the FDA; however, such approval is not necessary. Albumin 3.4 - 5.0 g/dL 3.6 Resulting Agency [facility] Specimen Collected: 01/27/24 11:25 Performed by: [facility] Last Resulted: 01/28/24 02:11 CBC and Auto Differential Order: [id number] Component Ref Range & Units 5 d ago WBC 4.4 - 11.3 x10*3/uL 12.8 High nRBC 0.0 - 0.0 /100 WBCs 0.0 RBC 4.00 - 5.20 x10*6/uL 3.33 Low Hemoglobin 12.0 - 16.0 g/dL 10.3 Low Hematocrit 36.0 - 46.0 % 32.9 Low MCV 80 - 100 fL 99 MCH 26.0 - 34.0 pg 30.9 MCHC 32.0 - 36.0 g/dL 31.3 Low RDW 11.5 - 14.5 % 14.8 High Platelets 150 - 450 x10*3/uL 334 Neutrophils % 40.0 - 80.0 % 86.3 Immature Granulocytes %, Automated 0.0 - 0.9 % 1.3 High Comment: Immature Granulocyte Count (IG) includes promyelocytes, myelocytes and metamyelocytes but does not include bands. Percent differential counts (%) should be interpreted in the context of the absolute cell counts (cells/UL). Lymphocytes % 13.0 - 44.0 % 4.0 Monocytes % 2.0 - 10.0 % 7.6 Eosinophils % 0.0 - 6.0 % 0.4 Basophils % 0.0 - 2.0 % 0.4 Neutrophils Absolute 1.60 - 5.50 x10*3/uL 11.07 High Comment: Percent differential counts (%) should be interpreted in the context of the absolute cell counts (cells/uL). Immature Granulocytes Absolute, Automated 0.00 - 0.50 x10*3/uL 0.17 Lymphocytes Absolute 0.80 - 3.00 x10*3/uL 0.51 Low Monocytes Absolute 0.05 - 0.80 x10*3/uL 0.98 High Eosinophils Absolute 0.00 - 0.40 x10*3/uL 0.05 Basophils Absolute 0.00 - 0.10 x10*3/uL 0.05 Resulting Agency [facility] Specimen Collected: 01/27/24 11:25 Independent interpretation of tests: SUJATA Montoya CNP Addendum: Pt scheduled for DCC with Dr. Craft on 02/10/24 at 9:00am. CBC 01/27/24 significant for WBC 12.8 hemoglobin 10.3 (8.6 and 9.6 respectively 01/22/24). CMP 02/01/24 stable SUJATA Enamorado CNP 02/02/24 9:32 AM Note PC to patient to review lab results. Liver enzymes have normalized. As previously discussed with Dr. Jerome, will increase amiodarone to 400 mg p.o. twice daily x 1 week and will schedule a cardioversion at [facility] next week. She already has a follow-up scheduled with me in the [facility] office 1 week post cardioversion. She was instructed to not miss any doses of Eliquis prior to her cardioversion. A new prescription for the higher dose of amiodarone was sent to her local pharmacy. Contains abnormal data Comprehensive Metabolic Panel Order: [id number] Component Ref Range & Units 1 d ago Glucose 74 - 99 mg/dL 112 High Sodium 136 - 145 mmol/L 138 Potassium 3.5 - 5.3 mmol/L 4.9 Chloride 98 - 107 mmol/L 100 Bicarbonate 21 - 32 mmol/L 21 Anion Gap 10 - 20 mmol/L 22 High Urea Nitrogen 6 - 23 mg/dL 15 Creatinine 0.50 - 1.05 mg/dL 0.95 eGFR >60 mL/min/1.73m*2 61 Comment: Calculations of estimated GFR are performed using the 2020 CKD-EPI Study Refit equation without the race variable for the IDMS-Traceable creatinine methods. https://jasn.asnjournals.org/content/early//ASN.3984458042 Calcium 8.6 - 10.6 mg/dL 9.4 Albumin 3.4 - 5.0 g/dL 3.6 Alkaline Phosphatase 33 - 136 U/L 47 Total Protein 6.4 - 8.2 g/dL 5.8 Low AST 9 - 39 U/L 13 Bilirubin, Total 0.0 - 1.2 mg/dL 0.7 ALT 7 - 45 U/L 24 Comment: Patients treated with Sulfasalazine may generate falsely decreased results for ALT. Resulting Agency [facility] H+ P copied to chart from (office provider's name: Radha ERNST) progress note dated 02/01/24 on behalf of (procedural physician's name: Dr. Craft). [facility] Phone: [phone] History and physical note* Maite Altamirano APRN - WINDOWS TECHNICAL SPECIALIST - 02/03/2024 11:05 AM EDT Images from the original note were not included. Office Visit 02/01/2024 [facility] Cardiology SUJATA Enamorado CNP Nurse Practitioner Acute Care PAF (paroxysmal atrial fibrillation) (HCC) +10 more Dx Hospital Follow-up Atrial Fibrillation Congestive Heart Failure Reason for Visit Progress Notes SUJATA Enamorado CNP (Nurse Practitioner) Cardiology Expand All Collapse All [facility] CARDIOLOGY [address] [place] [address] [address] [facility] [address] Dept: [phone] Dept Visit type: Established : 1945 Reason for Visit: Hospital Follow-up, Atrial Fibrillation, and Congestive Heart Failure Assessment and Plan 1. PAF (paroxysmal atrial fibrillation) (HCC) Assessment & Plan: Nonvalvular. S/p DMITRY/DCC 01/2024. On amiodarone for rhythm suppression as she had heart failure whenshe was in A-fib. She is back in A-fib with controlled heart rate in the 70s. She is symptomatic with heart failure symptoms. -Discussed with Dr. Jerome, will recheck a CMP and if her liver enzymes are trending down would reload with amiodarone 400 mg p.o. twice daily x 1 week and schedule cardioversion in 1 week -Refer to EP for further evaluation -Continue carvedilol 25 mg p.o. twice daily -Continue Eliquis 5 mg p.o. twice daily (sent to [facility] to assist with cost) Orders: - ECG 12 lead - CLINIC PERFORMED - Home sleep test - amiodarone (Pacerone) 200 MG tablet; Take 1 tablet (200 mg) by mouth daily., Starting Thu02/01/2024, Normal - apixaban (Eliquis) 5 MG tablet; Take 1 tablet (5 mg) by mouth 2 times daily., Starting Thu02/01/2024, Normal - [facility] 2. On continuous oral anticoagulation Assessment & Plan: Tolerating Eliquis without abnormal bleeding. -Continue Eliquis -CBC and BMP every 6 months, due July 2024 Orders: - apixaban (Eliquis) 5 MG tablet; Take 1 tablet (5 mg) by mouth 2 times daily., Starting Thu02/01/2024, Normal 3. On amiodarone therapy Assessment & Plan: On amiodarone for rhythm suppression. -Continue amiodarone -TSH and LFTs every 6 months, due July 2024 -Will recheck LFTs today as they were elevated during her hospitalization due to cardiogenic shock to ensure they are trending down 4. Elevated LFTs Assessment & Plan: Elevated LFTs during recent hospitalization in setting of cardiogenic shock. -Recheck CMP to ensure her LFTs are downtrending 5. 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 EF 48% per echocardiogram January 2024. Current heart failure symptoms include dyspnea on exertion, mild lower extremity edema and orthopnea. She does not appear grossly volume overloaded on physical exam. -Continue carvedilol 25 mg p.o. twice daily -Continue losartan 100 mg p.o. daily -Start Lasix 20 mg p.o. daily -Recheck proBNP -Heart failure self-care reviewed Orders: - Home sleep test - furosemide (Lasix) 20 MG tablet; Take 1 tablet (20 mg) by mouth daily., Starting Thu02/01/2024, Until Thu01/31/2025, Normal - Comprehensive metabolic panel - NT PRO BNP 6. Essential hypertension Assessment & Plan: Controlled. Goal less than 130/80. History of supine hypertension with orthostasis. -Previously taken off hydrochlorothiazide due to orthostasis -Continue amlodipine, carvedilol, losartan 7. Bilateral carotid artery stenosis Assessment & Plan: Moderate. Coronary risk equivalent. No symptoms. She has a history of right carotid endarterectomy. -Carotid US 04/2024 -Given ASCVD and DM2 consider add SGLT2i (will hold off for now since we are starting lasix) 8. Dyslipidemia Assessment & Plan: Target LDL <70. LDL 62 (11/2023) - Cont zetia - Cont crestor - Cont Vascepa. -Cont lifestyle mgt given elev TG; if much higher over time, consider Tricor Orders: - ezetimibe (Zetia) 10 MG tablet; Take 1 tablet (10 mg) by mouth in the morning., Starting 02/01/2024, Normal 9. 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 Diabetic related disease. -Continue diabetic management -Continue losartan and Finerenone which is managed by Dr. Livingston -Consider SGLT2i given ASCVD+DM2+CKD. Will defer to Renal and Endocrine. 10. INGA (obstructive sleep apnea) - Home sleep test 11. Obstructive sleep apnea syndrome Assessment & Plan: History of INGA but has not used CPAP for 6 or 7 years. Due to new onset A-fib and heart failure, I am recommending a home sleep study. She states she has lost quite a bit of weight since she was initially diagnosed with sleep apnea so it is unclear if she would still need CPAP. -Home sleep study Follow up in about 2 weeks (around 02/15/2024). Subjective Hx of carotid dz and CEA, breast CA, CKD stage II, tobacco abuse, COPD, HTN, HFmrEF, PAF She was last seen by Dr. Jerome April 2023 when she was stable from a cardiac standpoint and no changes were made to her medical therapy. She was admitted to [facility] September 2023 with acute pneumothorax after having an outpatient [facility]. Shereceived a chest tube. No cardiac decompensation at that office visit. She was recently admitted to [facility] January 2024 after being seen by her PCP for weakness and shortness of breath. She was sent to the ER. She was noted to have elevated lactate and LFTs and was felt to bein cardiogenic shock. She was also found to be in new onset A-fib with RVR. She had a DMITRY guided cardioversion which showed EF of 55% with no thrombus. She was noted to have 3+ MR in setting of severe systemic hypertension with systolic blood pressure 190. After she was placed on nitroprusside and her blood pressure was improved her MR was noted to be 1+. She was noted to have mild aortic stenosis with mean gradient 9 mmHg. Post successful cardioversion she was placed on amiodarone. 2 days later she had a follow-up echocardiogram which showed EF of 48% with low normal RV function, aortic sclerosis, 2+ MR and RVSP 46 mmHg. Her GDMT was titrated and she was discharged home. She presents todayfor continued follow-up. Today, she is still having some weakness, CRUZ and occasional lower extremity edema. She has orthopnea symptoms and feels more comfortable sleeping in a recliner. Her weight is down 11 pounds from herlast office visit in April 2023, but she had lost some weight prior to her hospitalization. Shehas occasional dizziness and lightheadedness. Her symptoms are consistent with volume overload.Her EKG shows she is back in Afib. Rolando Peters Review of Systems Constitutional: Negative for activity change, chills, diaphoresis, fatigue and fever. HENT: Positive for nosebleeds (small amount when blowing her nose). Negative for trouble swallowing. Eyes: Negative for visual disturbance. Respiratory: Positive for apnea (not using CPAP, has not used for 6-7 years), cough (usually in theAM), shortness of breath (CRUZ) and wheezing. Negative for chest tightness. + orthopnea Cardiovascular: Positive for leg swelling (if feet dependent, improves with elevation). Negative for chest pain and palpitations. Gastrointestinal: Negative for abdominal distention, abdominal pain, blood in stool, diarrhea, nausea and vomiting. Genitourinary: Negative for hematuria. Musculoskeletal: Positive for arthralgias, gait problem (occasional unsteadiness) and myalgias. Skin: Negative for color change and rash. Neurological: Positive for dizziness (since yesterday) and light-headedness (since yesterday). Negative for syncope and weakness. Hematological: Does not bruise/bleed easily. Psychiatric/Behavioral: Positive for dysphoric mood. Allergies Allergies Allergen Reactions Isosulfan Blue Anaphylaxis Methylene Blue Sulfa Antibiotics Rash Medications Prior to Visit Outpatient Medications Prior to Visit Medication Sig Dispense Refill albuterol (Ventolin HFA) 108 (90 Base) MCG/ACT inhaler Inhale 2 puffs every 4 hours as needed for wheezing or shortness of breath. 8 g 11 amLODIPine (Norvasc) 5 MG tablet Take 5 mg by mouth daily. atovaquone (Mepron) 750 MG/5ML suspension Take 10 mL (1,500 mg) by mouth daily. 300 mL 3 carvedilol (Coreg) 25 MG tablet Take 1 tablet (25 mg) by mouth in the morning and 1 tablet (25 mg) in the evening. Take with meals. 60 tablet 11 cholecalciferol (Vitamin D-3) 50 MCG (2000 UT) tablet Take 4,000 Units by mouth daily. Finerenone (Kerendia) 10 MG tablet Take 1 tablet by mouth daily. fluticasone (Cutivate) 0.05 % cream Apply topically Daily as needed (itching). fluticasone (Flonase) 50 MCG/ACT nasal spray Administer 1 spray into each nostril daily. Shake gently. Before first use, prime pump. After use, clean tip and replace cap. Jentadueto XR 2.5-1000 MG per 24 hr tablet take 2 tablets by mouth once daily lansoprazole (Prevacid) [address] capsule 1 capsule in the morning. losartan (Cozaar) 100 MG tablet losartan 100 mg tablet predniSONE (Deltasone) 10 MG tablet Take 2 tablets (20 mg) by mouth daily. Take 2 tablets (20mg) daily x 4 weeks, then 1 tablet (10mg) daily x 4 weeks 60 tablet 0 rosuvastatin (Crestor) 10 MG tablet daily. sertraline (Zoloft) 25 MG tablet Take 1 tablet (25 mg) by mouth daily. 30 tablet 11 tiotropium (Spiriva Respimat) 2.5 MCG/ACT inhaler Inhale 2 puffs daily. 1 each 11 Vascepa 1 g capsule TAKE 2 CAPSULES BY MOUTH 2 TIMES DAILY 360 capsule 3 amiodarone (Pacerone) 200 MG tablet Take 2 tablets (400 mg) by mouth 2 times daily for 11 days, THEN 1 tablet (200 mg) daily. Take 2 tablets twice daily starting 01/23/24 through 02/01/24. Starting 02/02/24, take 1 tablet once daily.. 60 tablet 1 apixaban (Eliquis) 5 MG tablet Take 1 tablet (5 mg) by mouth 2 times daily. 60 tablet 3 aspirin 81 MG chewable tablet daily. ezetimibe (Zetia) 10 MG tablet Take 1 tablet (10 mg) by mouth in the morning. 90 tablet 1 colchicine 0.6 MG tablet Take 0.6 mg by mouth daily. No facility-administered medications prior to visit. Medical History Past Medical History: Diagnosis Date Arrhythmia Arthritis Asthma Breast cancer (HCC) 1993 Right Breast(Mastectomy) Breast cancer (HCC) 2010 Left Breast(Simple Mastectomy, SLND) Chronic kidney disease Coronary artery disease Diabetes (HCC) GERD (gastroesophageal reflux disease) High blood pressure Occlusion and stenosis of unspecified carotid artery Pure hypercholesterolemia Syncope and collapse 08/29/2022 Social History Tobacco Use Smoking status: Former Packs/day: 1.00 Years: 30.00 Additional pack years: 0.00 Total pack years: 30.00 Types: Cigarettes Quit date: 08/17/1993 Years since quittin.4 Smokeless tobacco: Never 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: , 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[facility], 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, 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 Substance Use Topics Alcohol use: Yes Alcohol/week: 2.0 - 16.0 standard drinks of alcohol Types: 2 Glasses of wine per week Comment: occ Surgical History Past Surgical History: Procedure Laterality Date CAROTID ENDARTERECTOMY Right 2009 CATARACT EXTRACTION Bilateral 2006 CHEST TUBE INSERTION Right 10/05/2023 [facility] ENDOBRONCHIAL ULTRASOUND EBUS (HISTORICAL) 10/05/2023 MASTECTOMY Left 2010 simple/reconstruction/gingivagrapht MASTECTOMY Right 1993 reconstruction (TRAM) TOTAL ABDOMINAL HYSTERECTOMY W/ BILATERAL SALPINGOOPHORECTOMY 1998 TUBAL LIGATION 1979 Family History Family History Problem Relation Name Age of Onset Ovarian cancer Mother 66 Heart attack Father Lucita (Mother) 76 High Blood Pressure Father Lucita (Mother) Macular degeneration Father Lucita (Mother) Cancer Father Lucita (Mother) Ovarian cancer Mother's Sister 45 Other ([id number]) Son neuofibromatosis, BRCA1 positive Neurofibromatosis Son High Blood Pressure Son Cancer Son hairy cell leukemia Breast cancer Cousin 42 +brca Bladder Cancer Cousin 19 Hypertension Sister Angie Kidney disease Sister Angie Hypertension Sister Mireya Sister Kidney disease Sister Mireya Sister Objective Vitals Vitals: 02/01/24 1300 02/01/24 1305 BP: (!) 106/40 (!) 106/40 BP Location: Left arm Left arm Patient Position: Lying Sitting BP Cuff Size: Adult Adult Pulse: 74 Resp: 15 Weight: 143 lb (64.9 kg) Height: 5' 7 (1.702 m) Physical Exam Vitals reviewed. Constitutional: General: She is not in acute distress. Appearance: She is well-developed. HENT: Head: Normocephalic and atraumatic. Mouth/Throat: Mouth: Mucous membranes are moist. Pharynx: Oropharynx is clear. Eyes: General: No scleral icterus. Extraocular Movements: Extraocular movements intact. Neck: Vascular: No JVD. Cardiovascular: Rate and Rhythm: Normal rate. Rhythm irregularly irregular. Heart sounds: Normal heart sounds. No murmur heard. Comments: Trace pedal edema Pulmonary: Effort: Pulmonary effort is normal. Breath sounds: Examination of the right-lower field reveals decreased breath sounds. Examination ofthe left-lower field reveals decreased breath sounds. Decreased breath sounds present. Abdominal: General: Bowel sounds are normal. Palpations: Abdomen is soft. Musculoskeletal: Right lower leg: Edema present. Left lower leg: Edema present. Neurological: Mental Status: She is alert. Psychiatric: Attention and Perception: Attention normal. Behavior: Behavior is cooperative. Data Reviewed and Summarized EF BP Date Value Ref Range Status 01/22/2024 57 55 - 100 % Final EF Physician Date Value Ref Range Status 01/22/2024 48 % Final Review of tests/labs done/ordered within my specialty: EKG in office: Afib with HR 74, Qtc 421 msec. DMITRY 01/20/2024 Left Ventricle: Left ventricle size is normal. Increased wall thickness. Normal left ventricular systolic function. The EF by visual approximation is 55%. Normal wall motion. Right Ventricle: Right ventricle size is normal. Normal systolic function. Mitral Valve: Valve structure is normal. Moderately severe (3+) regurgitation (when systolic BP ~ 190) with a centrally directed jet which improved to mild (1+) regurgitation with addition of nitroprusside. No stenosis noted. Aortic Valve: Mild stenosis of the aortic valve. AV mean gradient is 9 mmHg. Left Atrium: Left atrium is dilated. Normal appendage flow velocity. No left atrial appendage thrombus noted. Successful DMITRY guided cardioversion from atrial fibrillation to normal sinus rhythm. TTE 01/22/2024 Left Ventricle: Left ventricle size is normal. Normal wall thickness. Normal left ventricular systolic function. EF by visual approximation is 48%. Global longitudinal strain is reduced with a value of -14.7%. Normal wall motion. Grade III diastolic dysfunction with increased LAP. Right Ventricle: Right ventricle size is normal. Low normal systolic function. RV Peak S' is 8 cm/s. Aortic Valve: Trileaflet. Cusp sclerosis. Mild (1+) regurgitation. Aortic slcerosis. AV mean gradient is 7 mmHg. AV peak gradient is 12 mmHg. AV peak velocity is 1.7 m/s. Mitral Valve: Moderately thickened leaflets. Moderately calcified leaflets. Mild annular calcification. Moderate (2+) regurgitation with a posterior directed jet. No stenosis noted. Tricuspid Valve: Valve structure is normal. Mild (1+) regurgitation. Mild to moderately elevated RVSP. RVSP is 46 mmHg. Left Atrium: Left atrium is moderately dilated. Right Atrium: Right atrium size is normal. Aorta: Normal sized sinuses of Valsalva and ascending aorta. Pericardium: No pericardial effusion. IVC/SVC: IVC diameter is dilated and decreases greater than 50% during inspiration; therefore the estimated right atrial pressure is intermediate (~8 mmHg). Review of tests/labs done/ordered outside my specialty: Latest Reference Range & Units 01/22/24 00:06 SODIUM 135 - 145 mmol/L 129 (L) POTASSIUM 3.5 - 5.1 mmol/L 4.0 CHLORIDE 98 - 107 mmol/L 102 Carbon Dioxide (CO2) 22 - 30 mmol/L 24 ANION GAP 3 - 13 mmol/L 3 Urea Nitrogen (BUN) 7 - 17 mg/dL 17 Creatinine 0.52 - 1.04 mg/dL 0.87 eGFR >60.0 mL/min/1.73m*2 68.3 GLUCOSE 70 - 100 mg/dL 102 (H) CALCIUM 8.4 - 10.4 mg/dL 7.6 (L) PHOSPHORUS 2.5 - 4.5 mg/dL 2.4 (L) MAGNESIUM 1.6 - 2.3 mg/dL 1.9 ALKALINE PHOSPHATASE - [facility] 38 - 126 U/L 85 ALBUMIN - [facility] 3.5 - 5.0 g/dL 3.4 (L) TOTAL PROTEIN 6.3 - 8.2 g/dL 5.9 (L) AST - [facility] 15 - 46 U/L 90 (H) ALT - [facility] 0 - 34 U/L 139 (H) BILIRUBIN, TOTAL - [facility] 0.2 - 1.3 mg/dL 1.4 (H) Auto WBC 3.6 - 10.7 10*3/uL 8.6 RBC 3.80 - 5.20 10*6/uL 3.13 (L) HEMOGLOBIN 11.7 - 16.0 g/dL 9.6 (L) HEMATOCRIT 35.0 - 47.0 % 29.8 (L) MCV 77.0 - 99.0 fL 95.2 MCH 26.0 - 34.0 pg 30.7 MCHC 30.5 - 36.0 % 32.2 RDW 11.5 - 15.0 % 15.4 (H) Platelets 140 - 440 10*3/uL 209 Mean Platelet Volume (MPV) 9.0 - 12.7 fL 9.9 Neutrophils Relative 38.0 - 82.0 % 76.2 Lymphocytes Relative 15.0 - 45.0 % 10.7 (L) Monocytes Relative 5.0 - 13.0 % 9.2 Eosinophils Relative 0.0 - 6.0 % 2.3 Basophils Relative 0.0 - 2.0 % 0.5 ABSOLUTE LYMPHOCYTES - [facility] 1.0 - 4.3 10*3/uL 0.9 (L) Monocytes Absolute 0.0 - 0.9 10*3/uL 0.8 Eosinophils Absolute 0.0 - 0.5 10*3/uL 0.2 Basophils Absolute 0.0 - 0.2 10*3/uL 0.0 nRBC 0.0 - 2.0 /100 WBCs 0.0 Immature Grans Absolute <0.1 10*3/uL 0.1 (H) Immature Grans % 0.0 - 2.0 % 1.1 Absolute Neutrophils 1.8 - 7.5 10*3/uL 6.5 (L): Data is abnormally low (H): Data is abnormally high Contains abnormal data Renal Function Panel Order: [id number] Component Ref Range & Units 5 d ago Glucose 74 - 99 mg/dL 179 High Sodium 136 - 145 mmol/L 133 Low Potassium 3.5 - 5.3 mmol/L 4.8 Chloride 98 - 107 mmol/L 98 Bicarbonate 21 - 32 mmol/L 23 Anion Gap 10 - 20 mmol/L 17 Urea Nitrogen 6 - 23 mg/dL 19 Creatinine 0.50 - 1.05 mg/dL 0.89 eGFR >60 mL/min/1.73m*2 66 Comment: Calculations of estimated GFR are performed using the 2020 CKD-EPI Study Refit equation without the race variable for the IDMS-Traceable creatinine methods. https://jasn.asnjournals.org/content/early//ASN.0873323964 Calcium 8.6 - 10.6 mg/dL 9.0 Phosphorus 2.5 - 4.9 mg/dL 4.2 Comment: The performance characteristics of phosphorus testing in heparinized plasma have been validated by the individual laboratory site where testing is performed. Testing on heparinized plasmais not approved by the FDA; however, such approval is not necessary. Albumin 3.4 - 5.0 g/dL 3.6 Resulting Agency [facility] Specimen Collected: 01/27/24 11:25 Performed by: [facility] Last Resulted: 01/28/24 02:11 CBC and Auto Differential Order: [id number] Component Ref Range & Units 5 d ago WBC 4.4 - 11.3 x10*3/uL 12.8 High nRBC 0.0 - 0.0 /100 WBCs 0.0 RBC 4.00 - 5.20 x10*6/uL 3.33 Low Hemoglobin 12.0 - 16.0 g/dL 10.3 Low Hematocrit 36.0 - 46.0 % 32.9 Low MCV 80 - 100 fL 99 MCH 26.0 - 34.0 pg 30.9 MCHC 32.0 - 36.0 g/dL 31.3 Low RDW 11.5 - 14.5 % 14.8 High Platelets 150 - 450 x10*3/uL 334 Neutrophils % 40.0 - 80.0 % 86.3 Immature Granulocytes %, Automated 0.0 - 0.9 % 1.3 High Comment: Immature Granulocyte Count (IG) includes promyelocytes, myelocytes and metamyelocytes but does not include bands. Percent differential counts (%) should be interpreted in the context of the absolute cell counts (cells/UL). Lymphocytes % 13.0 - 44.0 % 4.0 Monocytes % 2.0 - 10.0 % 7.6 Eosinophils % 0.0 - 6.0 % 0.4 Basophils % 0.0 - 2.0 % 0.4 Neutrophils Absolute 1.60 - 5.50 x10*3/uL 11.07 High Comment: Percent differential counts (%) should be interpreted in the context of the absolute cell counts (cells/uL). Immature Granulocytes Absolute, Automated 0.00 - 0.50 x10*3/uL 0.17 Lymphocytes Absolute 0.80 - 3.00 x10*3/uL 0.51 Low Monocytes Absolute 0.05 - 0.80 x10*3/uL 0.98 High Eosinophils Absolute 0.00 - 0.40 x10*3/uL 0.05 Basophils Absolute 0.00 - 0.10 x10*3/uL 0.05 Resulting Agency [facility] Specimen Collected: 01/27/24 11:25 Independent interpretation of tests: Kristy Doran, DEWATERER OPERATOR - WINDOWS TECHNICAL SPECIALIST Addendum: Pt scheduled for DCC with Dr. Craft on 02/10/24 at 9:00am. CBC 01/27/24 significant for WBC 12.8 hemoglobin 10.3 (8.6 and 9.6 respectively 01/22/24). CMP 02/01/24 stable Kristy Doran, DEWATERER OPERATOR - WINDOWS TECHNICAL SPECIALIST NK 02/02/24 9:32 AM Note PC to patient to review lab results. Liver enzymes have normalized. As previously discussed with Dr. Jerome, will increase amiodarone to 400 mg p.o. twice daily x 1 week and will schedule a cardioversion at [facility] next week. She already has a follow-up scheduled with me in the [facility] office 1 week post cardioversion. She was instructed to not miss any doses of Eliquis prior to her cardioversion. A new prescription for the higher dose of amiodarone was sent to her local pharmacy. Contains abnormal data Comprehensive Metabolic Panel Order: [id number] Component Ref Range & Units 1 d ago Glucose 74 - 99 mg/dL 112 High Sodium 136 - 145 mmol/L 138 Potassium 3.5 - 5.3 mmol/L 4.9 Chloride 98 - 107 mmol/L 100 Bicarbonate 21 - 32 mmol/L 21 Anion Gap 10 - 20 mmol/L 22 High Urea Nitrogen 6 - 23 mg/dL 15 Creatinine 0.50 - 1.05 mg/dL 0.95 eGFR >60 mL/min/1.73m*2 61 Comment: Calculations of estimated GFR are performed using the 2020 CKD-EPI Study Refit equation without the race variable for the IDMS-Traceable creatinine methods. https://jasn.asnjournals.org/content/early/ASN.4342250881 Calcium 8.6 - 10.6 mg/dL 9.4 Albumin 3.4 - 5.0 g/dL 3.6 Alkaline Phosphatase 33 - 136 U/L 47 Total Protein 6.4 - 8.2 g/dL 5.8 Low AST 9 - 39 U/L 13 Bilirubin, Total 0.0 - 1.2 mg/dL 0.7 ALT 7 - 45 U/L 24 Comment: Patients treated with Sulfasalazine may generate falsely decreased results for ALT. Resulting Agency [facility] H+ P copied to chart from (office provider's name: Radha ERNST) progress note dated 02/01/24 on behalf of (procedural physician's name: Dr. Craft). documented in this [facility]06-19-2024 History of Present illness Narrative* Celia Al DO - 02/03/2024 9:20 AM EDT Patient: Rolando Peters : 1945 PCP: Celia Al DO Program: No linked episodes Rolando Peters is a 79 y.o. female presenting today for follow-up after being discharged from the hospital 13 days ago. The main problem requiring admission was new onset HFrEF likely tachycardia mediated in the setting of A-fib with RVR new paroxysmal atrial fibrillation with RVR left sialoadenitis. The discharge summary and/or Transitional Care Management documentation was reviewed. Medication reconciliation was performed as indicated via the [place] as Reviewed timestamp. Rolando Peters was contacted by Transitional Care Management services two days after her discharge.This encounter and supporting documentation was reviewed. The complexity of medical decision making for this patient's transitional care is moderate. Patient's discharge summary was copied in its entirety and is as follows [facility] DISCHARGE SUMMARY Patient Name: Rolando Peters : 1945 Admit Date: 01/19/2024 Discharge Date: 01/22/24 PCP: CELIA AL DO Visit Status: Admission Code Status: Full Code Discharge Diagnoses: New Onset HFrEF Likely Tachy-mediated in the Setting of Afib with RVR (Compensated) Newly Diagnosed Paroxsmal Atrial Fibrillation with RVR Left Sialadenitis Hospital Course: Rolando Peters is a 79 y.o. female that presented to [facility] on 01/19/2024 and was admitted for cardiogenicshock. She has a history of breast cancer, CKD stage II, tobacco abuse, COPD, and hypertension, whopresented to [facility] after being seen in her PCPs office for generalized weakness and SOB. She was sentto the ED and was found to be in shock with elevated lactate, concerning for cardiogenic shock. Shewas also found to be in atrial fibrillation with RVR and a bedside TTE suggested reduced ejection fraction. A CTA of the chest showed no pulmonary embolism, but did show GGO's consistent with pulmonary edema and small incidental lung nodules. Patient underwent DMITRY with cardioversion and has primarily remained in sinus rhythm with occasional bouts of A-fib (compensated). She was given Amio load and started on Eliquis. TTE obtained and showed LVEF of 48% with moderate MR. The patient was evaluated by PT/OT who recommended home with home PT. The patient and daughter Ene both agreed with the patient being discharged to home. Procedures Performed: Echocardiogram (Type: TTE Date: 01/20/24): Left Ventricle: Left ventricle size is normal. Normal wall thickness. Normal left ventricular systolic function. EF by visual approximation is 48%. Global longitudinal strain is reduced with a value of -14.7%. Normal wall motion. Grade III diastolic dysfunction with increased LAP. Right Ventricle: Right ventricle size is normal. Low normal systolic function. RV Peak S' is 8 cm/s. Aortic Valve: Trileaflet. Cusp sclerosis. Mild (1+) regurgitation. Aortic slcerosis. AV mean gradient is 7 mmHg. AV peak gradient is 12 mmHg. AV peak velocity is 1.7 m/s. Mitral Valve: Moderately thickened leaflets. Moderately calcified leaflets. Mild annular calcification. Moderate (2+) regurgitation with a posterior directed jet. No stenosis noted. Tricuspid Valve: Valve structure is normal. Mild (1+) regurgitation. Mild to moderately elevated RVSP. RVSP is 46 mmHg. Left Atrium: Left atrium is moderately dilated. Right Atrium: Right atrium size is normal. Aorta: Normal sized sinuses of Valsalva and ascending aorta. Pericardium: No pericardial effusion. IVC/SVC: IVC diameter is dilated and decreases greater than 50% during inspiration; therefore the estimated right atrial pressure is intermediate (~8 mmHg). Discharge Medications: Current Outpatient Medications Medication Instructions albuterol (Ventolin HFA) 108 (90 Base) MCG/ACT inhaler 2 puffs, Inhalation, Every 4 hours PRN amiodarone (Pacerone) 200 MG tablet Take 2 tablets (400 mg) by mouth 2 times daily for 11 days, THEN 1 tablet (200 mg) daily. Take 2 tablets twice daily starting 01/23/24 through 02/01/24. Starting 02/02/24, take 1 tablet once daily.. amLODIPine (NORVASC) 5 mg, Oral, Daily apixaban (ELIQUIS) 5 mg, Oral, 2 times daily aspirin 81 MG chewable tablet Daily atovaquone (MEPRON) 1,500 mg, Oral, Daily carvedilol (COREG) 25 mg, Oral, 2 times daily with meals cholecalciferol (VITAMIN D-3) 4,000 Units, Oral, Daily citalopram (CELEXA) 20 mg, Oral, Daily colchicine 0.6 mg, Oral, Daily ezetimibe (ZETIA) 10 mg, Oral, Daily Finerenone (Kerendia) 10 MG tablet 1 tablet, Oral, Daily fluticasone (Cutivate) 0.05 % cream Topical, Daily PRN fluticasone (Flonase) 50 MCG/ACT nasal spray 1 spray, Each Nostril, Daily, Shake gently. Before first use, prime pump. After use, clean tip and replace cap. Jentadueto XR 2.5-1000 MG per 24 hr tablet take 2 tablets by mouth once daily lansoprazole (Prevacid) [address] capsule 1 capsule, Daily losartan (Cozaar) 100 MG tablet losartan 100 mg tablet metoprolol tartrate (Lopressor) 25 MG tablet metoprolol tartrate 25 mg tablet predniSONE (DELTASONE) 20 mg, Oral, Daily, Take 2 tablets (20mg) daily x 4 weeks, then 1 tablet (10mg) daily x 4 weeks rosuvastatin (Crestor) 10 MG tablet Daily [START ON 01/23/2024] sertraline (ZOLOFT) 25 mg, Oral, Daily tiotropium (Spiriva Respimat) 2.5 MCG/ACT inhaler 2 puffs, Inhalation, Daily Vascepa 1 g capsule TAKE 2 CAPSULES BY MOUTH 2 TIMES DAILY Notable Medication Changes & Reasoning: Coreg for GDMT for HF with mildly reduced EF Amiodarone for A-fib Eliquis given recent cardioversion and A-fib Celexa switched to Zoloft due to medication change above BMI: Body mass index is 24.43 kg/m . Diet: Adult diet Regular; Low Sodium (2 gm) Activity: Please refer to home going instructions. Disposition: Home Recommended Follow Up Appointment(s): Follow up with Hydraulic Jack Adjuster on 02/01/24 Follow up with Pulmonology on 03/11/24 PCP 2-4 weeks Review of Systems Constitutional: Negative for activity change, appetite change, fatigue and fever. HENT: Negative for congestion. Respiratory: Negative for cough, choking and chest tightness. Cardiovascular: Negative for chest pain, palpitations and leg swelling. Musculoskeletal: Negative for arthralgias, back pain and gait problem. Skin: Negative for color change and pallor. Neurological: Negative for dizziness, facial asymmetry, light-headedness and headaches. Family History Problem Relation Name Age of Onset Ovarian cancer Mother Heart attack Father Other (auto immune) Sister Mireya No Known Problems Sister Angie Arthritis Other FH Heart murmur Other FH Hypertension Other FH Leukemia Other FH Breast cancer Other FH Female Ovarian cancer Other FH Engagement Call Start Time: 1453 (01/25/2024 3:14 PM) Medications Medications reviewed with patient/caregiver?: Yes (new meds/changes discussed with patient) (01/25/2024 3:14 PM) Is the patient having any side effects they believe may be caused by any medication additions or changes?: No (01/25/2024 3:14 PM) Does the patient have all medications ordered at discharge?: Yes (01/25/2024 3:14 PM) Care Management Interventions: No intervention needed (01/25/2024 3:14 PM) Prescription Comments: see med list (apixaban; sertraline; carvedilol; amiodarone; STOP citalopram)(01/25/2024 3:14 PM) Is the patient taking all medications as directed (includes completed medication regime)?: Yes (01/25/2024 3:14 PM) Care Management Interventions: Provided patient education (01/25/2024 3:14 PM) Appointments Does the patient have a primary care provider?: Yes (01/25/2024 3:14 PM) Care Management Interventions: Verified appointment date/time/provider (01/25/2024 3:14 PM) Has the patient kept scheduled appointments due by today?: Yes (01/25/2024 3:14 PM) Care Management Interventions: Educated on importance of keeping appointment (01/25/2024 3:14 PM) Self Management What is the home health agency?: [facility] [phone] (01/25/2024 3:14 PM) Has home health visited the patient within 72 hours of discharge?: Yes (01/25/2024 3:14 PM) What Durable Medical Equipment (DME) was ordered?: N/a (01/25/2024 3:14 PM) Patient Teaching Does the patient have access to their discharge instructions?: Yes (01/25/2024 3:14 PM) Care Management Interventions: Reviewed instructions with patient (01/25/2024 3:14 PM) What is the patient's perception of their health status since discharge?: Improving (01/25/2024 3:14PM) Is the patient/caregiver able to teach back the hierarchy of who to call/visit for symptoms/problems? PCP, Specialist, Home Health nurse, Urgent Care, ED, 911: Yes (01/25/2024 3:14 PM) Patient/Caregiver Education Comments: Successful transition of care outreach with patient. Patient reports doing well at home since discharge. New meds/changes reviewed with patient during outreach. Patient denies CP/SOB. Patient states she still has left gland swelling from left sialadenitis. Patient denies further discharge questions/concerns/needs at time of outreach call. Emphasized that follow up appts are needed after discharge with PCP and reviewed needed follow ups with any specialties to assess response to treatment from hospitalization. Patient aware of my availability for non-emergent concerns. Contact information provided to the patient. (01/25/2024 3:14 PM) No follow-ups on file. Objective BP 136/62 (BP Location: Left arm) Pulse 62 Wt 64 kg (141 lb) BMI 22.08 kg/m BSA Body surface area is 1.74 meters squared. Physical Exam Constitutional: General: She is not in acute distress. Appearance: Normal appearance. She is not toxic-appearing. HENT: Head: Normocephalic. Right Ear: Tympanic membrane, ear canal and external ear normal. Left Ear: Tympanic membrane, ear canal and external ear normal. Mouth/Throat: Comments: Left enlargement of submandibular gland Eyes: Conjunctiva/sclera: Conjunctivae normal. Pupils: Pupils are equal, round, and reactive to light. Cardiovascular: Rate and Rhythm: Rhythm irregular. Pulses: Normal pulses. Heart sounds: Normal heart sounds. Comments: Irregularly irregular Pulmonary: Effort: No respiratory distress. Breath sounds: No wheezing, rhonchi or rales. Abdominal: General: Bowel sounds are normal. There is no distension. Palpations: Abdomen is soft. Tenderness: There is no abdominal tenderness. Musculoskeletal: General: No swelling or tenderness. Skin: Findings: No lesion or rash. Neurological: General: No focal deficit present. Mental Status: She is alert and oriented to person, place, and time. Mental status is at baseline. Gait: Gait normal. Psychiatric: Mood and Affect: Mood normal. Behavior: Behavior normal. Thought Content: Thought content normal. Judgment: Judgment normal. Lab on 02/01/2024 Component Date Value Ref Range Status BNP 02/01/2024 700 (H) 0 - 99 pg/mL Final Glucose 02/01/2024 112 (H) 74 - 99 mg/dL Final Sodium 02/01/2024 138 136 - 145 mmol/L Final Potassium 02/01/2024 4.9 3.5 - 5.3 mmol/L Final Chloride 02/01/2024 100 98 - 107 mmol/L Final Bicarbonate 02/01/2024 21 21 - 32 mmol/L Final Anion Gap 02/01/2024 22 (H) 10 - 20 mmol/L Final Urea Nitrogen 02/01/2024 15 6 - 23 mg/dL Final Creatinine 02/01/2024 0.95 0.50 - 1.05 mg/dL Final eGFR 02/01/2024 61 >60 mL/min/1.73m*2 Final Calculations of estimated GFR are performed using the 2020 CKD-EPI Study Refit equation without therace variable for the IDMS-Traceable creatinine methods. https://jasn.asnjournals.org/content///ASN.6529496202 Calcium 02/01/2024 9.4 8.6 - 10.6 mg/dL Final Albumin 02/01/2024 3.6 3.4 - 5.0 g/dL Final Alkaline Phosphatase 02/01/2024 47 33 - 136 U/L Final Total Protein 02/01/2024 5.8 (L) 6.4 - 8.2 g/dL Final AST 02/01/2024 13 9 - 39 U/L Final Bilirubin, Total 02/01/2024 0.7 0.0 - 1.2 mg/dL Final ALT 02/01/2024 24 7 - 45 U/L Final Patients treated with Sulfasalazine may generate falsely decreased results for ALT. Lab on 01/27/2024 Component Date Value Ref Range Status Glucose 01/27/2024 179 (H) 74 - 99 mg/dL Final Sodium 01/27/2024 133 (L) 136 - 145 mmol/L Final Potassium 01/27/2024 4.8 3.5 - 5.3 mmol/L Final Chloride 01/27/2024 98 98 - 107 mmol/L Final Bicarbonate 01/27/2024 23 21 - 32 mmol/L Final Anion Gap 01/27/2024 17 10 - 20 mmol/L Final Urea Nitrogen 01/27/2024 19 6 - 23 mg/dL Final Creatinine 01/27/2024 0.89 0.50 - 1.05 mg/dL Final eGFR 01/27/2024 66 >60 mL/min/1.73m*2 Final Calculations of estimated GFR are performed using the 2020 CKD-EPI Study Refit equation without therace variable for the IDMS-Traceable creatinine methods. https://jasn.asnjournals.org/content/early//ASN.6308616227 Calcium 01/27/2024 9.0 8.6 - 10.6 mg/dL Final Phosphorus 01/27/2024 4.2 2.5 - 4.9 mg/dL Final The performance characteristics of phosphorus testing in heparinized plasma have been validated by the individual laboratory site where testing is performed. Testing on heparinized plasma is not approved by the FDA; however, such approval is not necessary. Albumin 01/27/2024 3.6 3.4 - 5.0 g/dL Final Total Protein, Urine Random 01/27/2024 299 (H) 5 - 24 mg/dL Final Creatinine, Urine Random 01/27/2024 80.9 20.0 - 320.0 mg/dL Final T. Protein/Creatinine Ratio 01/27/2024 3.70 (H) 0.00 - 0.17 mg/mg Creat Final WBC 01/27/2024 12.8 (H) 4.4 - 11.3 x10*3/uL Final nRBC 01/27/2024 0.0 0.0 - 0.0 /100 WBCs Final RBC 01/27/2024 3.33 (L) 4.00 - 5.20 x10*6/uL Final Hemoglobin 01/27/2024 10.3 (L) 12.0 - 16.0 g/dL Final Hematocrit 01/27/2024 32.9 (L) 36.0 - 46.0 % Final MCV 01/27/2024 99 80 - 100 fL Final MCH 01/27/2024 30.9 26.0 - 34.0 pg Final MCHC 01/27/2024 31.3 (L) 32.0 - 36.0 g/dL Final RDW 01/27/2024 14.8 (H) 11.5 - 14.5 % Final Platelets 01/27/2024 334 150 - 450 x10*3/uL Final Neutrophils % 01/27/2024 86.3 40.0 - 80.0 % Final Immature Granulocytes %, Automated 01/27/2024 1.3 (H) 0.0 - 0.9 % Final Immature Granulocyte Count (IG) includes promyelocytes, myelocytes and metamyelocytes but does not include bands. Percent differential counts (%) should be interpreted in the context of the absolute cell counts (cells/UL). Lymphocytes % 01/27/2024 4.0 13.0 - 44.0 % Final Monocytes % 01/27/2024 7.6 2.0 - 10.0 % Final Eosinophils % 01/27/2024 0.4 0.0 - 6.0 % Final Basophils % 01/27/2024 0.4 0.0 - 2.0 % Final Neutrophils Absolute 01/27/2024 11.07 (H) 1.60 - 5.50 x10*3/uL Final Percent differential counts (%) should be interpreted in the context of the absolute cell counts (cells/uL). Immature Granulocytes Absolute, Au* 01/27/2024 0.17 0.00 - 0.50 x10*3/uL Final Lymphocytes Absolute 01/27/2024 0.51 (L) 0.80 - 3.00 x10*3/uL Final Monocytes Absolute 01/27/2024 0.98 (H) 0.05 - 0.80 x10*3/uL Final Eosinophils Absolute 01/27/2024 0.05 0.00 - 0.40 x10*3/uL Final Basophils Absolute 01/27/2024 0.05 0.00 - 0.10 x10*3/uL Final Lab on 01/08/2024 Component Date Value Ref Range Status Hemoglobin A1C 01/08/2024 7.7 (H) see below % Final Estimated Average Glucose 01/08/2024 174 Not Established mg/dL Final Lab on 11/18/2023 Component Date Value Ref Range Status WBC 11/18/2023 9.5 4.4 - 11.3 x10*3/uL Final nRBC 11/18/2023 0.0 0.0 - 0.0 /100 WBCs Final RBC 11/18/2023 4.11 4.00 - 5.20 x10*6/uL Final Hemoglobin 11/18/2023 12.6 12.0 - 16.0 g/dL Final Hematocrit 11/18/2023 39.6 36.0 - 46.0 % Final MCV 11/18/2023 96 80 - 100 fL Final MCH 11/18/2023 30.7 26.0 - 34.0 pg Final MCHC 11/18/2023 31.8 (L) 32.0 - 36.0 g/dL Final RDW 11/18/2023 13.3 11.5 - 14.5 % Final Platelets 11/18/2023 184 150 - 450 x10*3/uL Final Neutrophils % 11/18/2023 84.0 40.0 - 80.0 % Final Immature Granulocytes %, Automated 11/18/2023 1.4 (H) 0.0 - 0.9 % Final Immature Granulocyte Count (IG) includes promyelocytes, myelocytes and metamyelocytes but does not include bands. Percent differential counts (%) should be interpreted in the context of the absolute cell counts (cells/UL). Lymphocytes % 11/18/2023 9.1 13.0 - 44.0 % Final Monocytes % 11/18/2023 4.3 2.0 - 10.0 % Final Eosinophils % 11/18/2023 0.8 0.0 - 6.0 % Final Basophils % 11/18/2023 0.4 0.0 - 2.0 % Final Neutrophils Absolute 11/18/2023 7.99 (H) 1.60 - 5.50 x10*3/uL Final Percent differential counts (%) should be interpreted in the context of the absolute cell counts (cells/uL). Immature Granulocytes Absolute, Au* 11/18/2023 0.13 0.00 - 0.50 x10*3/uL Final Lymphocytes Absolute 11/18/2023 0.87 0.80 - 3.00 x10*3/uL Final Monocytes Absolute 11/18/2023 0.41 0.05 - 0.80 x10*3/uL Final Eosinophils Absolute 11/18/2023 0.08 0.00 - 0.40 x10*3/uL Final Basophils Absolute 11/18/2023 0.04 0.00 - 0.10 x10*3/uL Final Glucose 11/18/2023 186 (H) 74 - 99 mg/dL Final Sodium 11/18/2023 137 136 - 145 mmol/L Final Potassium 11/18/2023 4.4 3.5 - 5.3 mmol/L Final Chloride 11/18/2023 101 98 - 107 mmol/L Final Bicarbonate 11/18/2023 26 21 - 32 mmol/L Final Anion Gap 11/18/2023 14 10 - 20 mmol/L Final Urea Nitrogen 11/18/2023 23 6 - 23 mg/dL Final Creatinine 11/18/2023 0.89 0.50 - 1.05 mg/dL Final eGFR 11/18/2023 67 >60 mL/min/1.73m*2 Final Calculations of estimated GFR are performed using the 2020 CKD-EPI Study Refit equation without therace variable for the IDMS-Traceable creatinine methods. https://jasn.asnjournals.org/content/early/ASN.2804123818 Calcium 11/18/2023 9.1 8.6 - 10.6 mg/dL Final Albumin 11/18/2023 3.5 3.4 - 5.0 g/dL Final Alkaline Phosphatase 11/18/2023 40 33 - 136 U/L Final Total Protein 11/18/2023 5.4 (L) 6.4 - 8.2 g/dL Final AST 11/18/2023 13 9 - 39 U/L Final Bilirubin, Total 11/18/2023 0.7 0.0 - 1.2 mg/dL Final ALT 11/18/2023 25 7 - 45 U/L Final Patients treated with Sulfasalazine may generate falsely decreased results for ALT. Cholesterol 11/18/2023 178 0 - 199 mg/dL Final Age Desirable Borderline High High 0-19 Y 0 - 169 170 - 199 >/= 200 20-24 Y 0 - 189 190 - 224 >/= 225 >24 Y 0 - 199 200 - 239 >/= 240 All ranges are based on fasting samples. Specific therapeutic targets will vary based on patient-specific cardiac risk. Pediatric guidelines reference:Pediatrics 2011, 128(S5).Adult guidelines reference: NCEP ATPIII Guidelines,SARAH 2001, 258:2486-97 Venipuncture immediately after or during the administration of Metamizole may lead to falsely low results. Testing should be performed immediately prior to Metamizole dosing. HDL-Cholesterol 11/18/2023 92.5 mg/dL Final Age Very Low Low Normal High 0-19 Y < 35 < 40 40-45 ---- 20-24 Y ---- < 40 >45 ---- >24 Y ---- < 40 40-60 >60 Cholesterol/HDL Ratio 11/18/2023 1.9 Final Ref Values Desirable < 3.4 High Risk > 5.0 LDL Calculated 11/18/2023 62 <=99 mg/dL Final Near Borderline AGE Desirable Optimal High High Very High 0-19 Y 0 - 109 --- 110-129 >/= 130 ---- 20-24 Y 0 - 119 --- 120-159 >/= 160 ---- >24 Y 0 - 99 100-129 130-159 160-189 >/=190 VLDL 11/18/2023 24 0 - 40 mg/dL Final Triglycerides 11/18/2023 119 0 - 149 mg/dL Final Age Desirable Borderline High High Very High 0 D-90 D 19 - 174 ---- ---- ---- 91 D- 9 Y 0 - 74 75 - 99 >/= 100 ---- 10-19 Y 0 - 89 90 - 129 >/= 130 ---- 20-24 Y 0 - 114 115 - 149 >/= 150 ---- >24 Y 0 - 149 150 - 199 200- 499 >/= 500 Venipuncture immediately after or during the administration of Metamizole may lead to falsely low results. Testing should be performed immediately prior to Metamizole dosing. Non HDL Cholesterol 11/18/2023 86 0 - 149 mg/dL Final Age Desirable Borderline High High Very High 0-19 Y 0 - 119 120 - 144 >/= 145 >/= 160 20-24 Y 0 - 149 150 - 189 >/= 190 ---- >24 Y 30 mg/dL above LDL Cholesterol goal Thyroid Stimulating Hormone 11/18/2023 2.26 0.44 - 3.98 mIU/L Final Lab on 08/18/2023 Component Date Value Ref Range Status WBC 08/18/2023 7.4 4.4 - 11.3 x10*3/uL Final nRBC 08/18/2023 0.0 0.0 - 0.0 /100 WBCs Final RBC 08/18/2023 4.08 4.00 - 5.20 x10*6/uL Final Hemoglobin 08/18/2023 12.6 12.0 - 16.0 g/dL Final Hematocrit 08/18/2023 40.6 36.0 - 46.0 % Final MCV 08/18/2023 100 80 - 100 fL Final MCH 08/18/2023 30.9 26.0 - 34.0 pg Final MCHC 08/18/2023 31.0 (L) 32.0 - 36.0 g/dL Final RDW 08/18/2023 12.4 11.5 - 14.5 % Final Platelets 08/18/2023 271 150 - 450 x10*3/uL Final Neutrophils % 08/18/2023 68.0 40.0 - 80.0 % Final Immature Granulocytes %, Automated 08/18/2023 0.4 0.0 - 0.9 % Final Immature Granulocyte Count (IG) includes promyelocytes, myelocytes and metamyelocytes but does not include bands. Percent differential counts (%) should be interpreted in the context of the absolute cell counts (cells/UL). Lymphocytes % 08/18/2023 18.1 13.0 - 44.0 % Final Monocytes % 08/18/2023 8.2 2.0 - 10.0 % Final Eosinophils % 08/18/2023 3.9 0.0 - 6.0 % Final Basophils % 08/18/2023 1.4 0.0 - 2.0 % Final Neutrophils Absolute 08/18/2023 5.03 1.60 - 5.50 x10*3/uL Final Percent differential counts (%) should be interpreted in the context of the absolute cell counts (cells/uL). Immature Granulocytes Absolute, Au* 08/18/2023 0.03 0.00 - 0.50 x10*3/uL Final Lymphocytes Absolute 08/18/2023 1.34 0.80 - 3.00 x10*3/uL Final Monocytes Absolute 08/18/2023 0.61 0.05 - 0.80 x10*3/uL Final Eosinophils Absolute 08/18/2023 0.29 0.00 - 0.40 x10*3/uL Final Basophils Absolute 08/18/2023 0.10 0.00 - 0.10 x10*3/uL Final Glucose 08/18/2023 101 (H) 74 - 99 mg/dL Final Sodium 08/18/2023 137 136 - 145 mmol/L Final Potassium 08/18/2023 4.8 3.5 - 5.3 mmol/L Final MILD HEMOLYSIS DETECTED. The result may be falsely elevated due to hemolysis or other interferents.Clinical correlation is recommended. Repeat testing may be considered. Chloride 08/18/2023 102 98 - 107 mmol/L Final Bicarbonate 08/18/2023 21 21 - 32 mmol/L Final Anion Gap 08/18/2023 19 10 - 20 mmol/L Final Urea Nitrogen 08/18/2023 17 6 - 23 mg/dL Final Creatinine 08/18/2023 0.80 0.50 - 1.05 mg/dL Final eGFR 08/18/2023 76 >60 mL/min/1.73m*2 Final Calculations of estimated GFR are performed using the 2020 CKD-EPI Study Refit equation without therace variable for the IDMS-Traceable creatinine methods. https://jasn.asnjournals.org/content/early//ASN.0948959436 Calcium 08/18/2023 9.2 8.6 - 10.6 mg/dL Final Phosphorus 08/18/2023 4.5 2.5 - 4.9 mg/dL Final MILD HEMOLYSIS DETECTED. The result may be falsely elevated due to hemolysis or other interferents.Clinical correlation is recommended. Repeat testing may be considered. The performance characteristics of phosphorus testing in heparinized plasma have been validated by the individual laboratory site where testing is performed. Testing on heparinized plasma is not approved by the FDA; however, such approval is not necessary. Albumin 08/18/2023 4.0 3.4 - 5.0 g/dL Final Orders Only on 02/18/2023 Component Date Value Ref Range Status Glucose 02/18/2023 94 74 - 99 mg/dL Final Sodium 02/18/2023 137 136 - 145 mmol/L Final Potassium 02/18/2023 4.6 3.5 - 5.3 mmol/L Final Chloride 02/18/2023 102 98 - 107 mmol/L Final Bicarbonate 02/18/2023 23 21 - 32 mmol/L Final Anion Gap 02/18/2023 17 10 - 20 mmol/L Final Urea Nitrogen 02/18/2023 17 6 - 23 mg/dL Final Creatinine 02/18/2023 0.77 0.50 - 1.05 mg/dL Final GFR Female 02/18/2023 79 >90 mL/min/1.73m2 Final Comment: CALCULATIONS OF ESTIMATED GFR ARE PERFORMED USING THE 2020 CKD-EPI STUDY REFIT EQUATION WITHOUT THE RACE VARIABLE FOR THE IDMS-TRACEABLE CREATININE METHODS. https://jasn.asnjournals.org/content/early//ASN.8289141578 Calcium 02/18/2023 9.5 8.6 - 10.6 mg/dL Final Phosphorus 02/18/2023 4.4 2.5 - 4.9 mg/dL Final Comment: The performance characteristics of phosphorus testing in heparinized plasma have been validated by the individual laboratory site where testing is performed. Testing on heparinized plasma is not approved by the FDA; however, such approval is not necessary. Albumin 02/18/2023 4.2 3.4 - 5.0 g/dL Final Protein, Ur 02/18/2023 197 (H) 5 - 24 mg/dL Final Creatinine, Urine 02/18/2023 49.4 20.0 - 320.0 mg/dL Final Prot/Creat, Ur 02/18/2023 3.99 (H) 0.00 - 0.17 mg/mg Creat Final Current Outpatient Medications on File Prior to Visit Medication Sig Dispense Refill albuterol 90 mcg/actuation inhaler Inhale 2 puffs every 4 hours if needed. amiodarone (Pacerone) 200 mg tablet Take by mouth. Take 2 tablets (400 mg) by mouth 2 times daily for 11 days, THEN 1 tablet (200 mg) daily. Take 2 tablets twice daily starting 01/23/24 through 02/01/24 amLODIPine (Norvasc) 5 mg tablet Take 1 tablet (5 mg) by mouth once daily. 90 tablet 0 apixaban (Eliquis) 5 mg tablet Take 1 tablet (5 mg) by mouth twice a day. atovaquone (Mepron) 750 mg/5 mL suspension Take by mouth once daily. blood sugar diagnostic (Contour Next Test Strips) strip 1 each 2 times a day. 200 strip 1 carvedilol (Coreg) 25 mg tablet Take 1 tablet (25 mg) by mouth 2 times daily (morning and late afternoon). cholecalciferol (Vitamin D-3) 50 MCG (2000 UT) tablet Take 2 tablets (4,000 Units) by mouth once daily. clindamycin (Cleocin T) 1 % lotion twice a day. Apply sparingly and massage in ezetimibe (Zetia) 10 mg tablet Take 1 tablet (10 mg) by mouth once daily. finerenone (Kerendia) 10 mg tablet tablet Take 1 tablet (10 mg) by mouth once daily. 90 tablet 3 fluocinonide (Lidex) 0.05 % external solution 1 (one) time each day. Apply to affected areas fluticasone (Flonase) 50 mcg/actuation nasal spray Administer 1 spray into each nostril once daily.Shake gently. Before first use, prime pump. After use, clean tip and replace cap. 16 g 1 furosemide (Lasix) 20 mg tablet Take 1 tablet (20 mg) by mouth once daily. icosapent ethyL (Vascepa) 1 gram capsule Take 2 capsules (2 g) by mouth twice a day. lansoprazole (Prevacid) [address] capsule TAKE 1 CAPSULE BY MOUTH ONCE DAILY. 90 capsule 3 linagliptin-metformin (Jentadueto XR) 2.5-1,000 mg tablet, IR - ER, biphasic 24hr Take 2 tablets bymouth once daily. 180 tablet 3 losartan (Cozaar) 100 mg tablet TAKE 1 TABLET BY MOUTH ONCE DAILY. 90 tablet 3 predniSONE (Deltasone) 5 mg tablet 10 then 9 then 8 then 7 etc. until gone 55 tablet 0 rosuvastatin (Crestor) 10 mg tablet TAKE 1 TABLET BY MOUTH ONCE DAILY. 90 tablet 3 sertraline (Zoloft) 25 mg tablet Take 1 tablet (25 mg) by mouth once daily. tiotropium (Spiriva Respimat) 2.5 mcg/actuation inhaler Inhale 2 puffs once daily. 12 g 3 [] amoxicillin-pot clavulanate (Augmentin) 875-125 mg tablet Take 1 tablet (875 mg) by mouth2 times a day for 10 days. 20 tablet 0 aspirin 81 mg EC tablet Take 1 tablet (81 mg) by mouth once daily. colchicine 0.6 mg tablet 1 tablet Orally metoprolol tartrate (Lopressor) 25 mg tablet TAKE 1 TABLET BY MOUTH DAILY IN THE MORNING AND 1 TABLET DAILY BEFORE BEDTIME. (Patient not taking: Reported on 02/03/2024) 180 tablet 3 [DISCONTINUED] citalopram (CeleXA) 20 mg tablet TAKE 1 TABLET BY MOUTH ONCE DAILY. (Patient not taking: Reported on 01/25/2024) 90 tablet 3 [DISCONTINUED] Kerendia 10 mg tablet tablet Take 1 tablet (10 mg) by mouth once daily. [DISCONTINUED] linagliptin-metformin (Jentadueto XR) 2.5-1,000 mg tablet, IR - ER, biphasic 24hr Take 2 tablets by mouth once daily. 180 tablet 1 [DISCONTINUED] Spiriva Respimat 2.5 mcg/actuation inhaler Inhale 2 puffs once daily. No current facility-administered medications on file prior to visit. No images are attached to the encounter. Assessment/Plan Diagnoses and all orders for this visit: HFrEF (heart failure with reduced ejection fraction) (Multi) Atrial fibrillation with RVR (Multi) Sialadenitis Elevated liver enzymes 1. Patient to follow-up with cardiology on 02/01/2024 2. Patient to follow-up with pulmonology on 03/11/2024 3. Patient needs LFT's in one to two weeks 4. Patient to have home sleep test performed 5. Patient to call with questions or concerns [facility] Work Phone: [phone]) 478-589106-18-2024 Telephone encounter Note* Telephone Encounter - Ginger Benson - 02/02/2024 3:55 PM EDT (2) SPIRIVA RESPIMAT 2.5 SAMPLES [facility] [id number] Miscellaneous Notes* Telephone Encounter - Ginger Benson - 02/02/2024 3:55 PM EDT (2) SPIRIVA RESPIMAT 2.5 SAMPLES documented in this encounterSSt. [facility] of God [id number] Telephone encounter Note* Telephone Encounter - Mai Alfred RN - 02/02/2024 1:55 PM EDT You are scheduled for DCC with Dr. Craft on 02/10/24 at 9:00am. Please arrive by 7:30 am. You will need a designated drop hammer pile driver operator for the day of your procedure to take you home Nothing to eat or drink after midnight Please take your am medications with sips of water prior to leaving for the hospital. Hold furosemide and Jentadueto the morning of procedure. Get blood work done by (done 01/19/24 and 01/22/24) Prepare for a possible overnight stay -Spoke with pt via phone and completed above instructions. Pt verbalized understanding and knows tocall the office with questions or concerns. [facility] [id number] Telephone encounter Note* Telephone Encounter - Fredo Underwood MA - 02/02/2024 1:24 PM EDT Patient stated she is going to have her niece Betsey vera come to picker machine operator her samples. [facility] [id number] Miscellaneous Notes* Telephone Encounter - Fredo Underwood MA - 02/02/2024 1:24 PM EDT Patient stated she is going to have her niece Betsey harrisonol come to picker machine operator her samples. * Telephone Encounter - Sravani Vaughan RN - 02/01/2024 9:19 AM EDT Patient called office stating she just picked up refill of her Spiriva Respimat 2.5 mcg inhaler. She reports she was recently hospitalized and her had been ill and was hospitalized as well and she is unable to locate the new inhaler anywhere and it is too soon to get another refill. She is asking if she can picker machine operator a sample at the [place] office as it is closer to her. This RN contactedDenise at the [place] office and she set aside 2 boxes of Spiriva Respimat 2.5 mcg for patient. Patient notified. documented in this [facility]06-18-2024 History of Present illness Narrative* Sarah Lopez, PharmD - 02/02/2024 10:00 AM EDT Subjective Patient ID: Rolando Peters is a 79 y.o. female who presents for Diabetes and COPD. Referring Provider: Celia Al DO Patient referred to clinical pharmacy for assistance with diabetes medication management. A1c historically well controlled, most recently however inc to 7.6%. One year ago in October 2022, pts A1c was 6.3% which was an improvement from prior A1c of 6.5% and 7.3% the prior year. Following initial referral to pharmacy patient was transitioned off Januvia + glipizide onto Jentadueto (Tradjenta / metformin) d/t insurance coverage and for simplification of therapy as well as cost benefit. Patient started therapy with Jentadueto 09/30/21 and has tolerated therapy well, now on 5 mg/2000mg daily. She istrying lifestyle modifications to see if she can bring A1c further down. Well controlled on spiriva2.5 mcg/inh. 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 Objective There were no vitals taken for this visit. Labs Lab Results Component Value Date BILITOT 0.7 02/01/2024 CALCIUM 9.4 02/01/2024 CO2 21 02/01/2024 CL 100 02/01/2024 CREATININE 0.95 02/01/2024 GLUCOSE 112 (H) 02/01/2024 ALKPHOS 47 02/01/2024 K 4.9 02/01/2024 PROT 5.8 (L) 02/01/2024 NA 138 02/01/2024 AST 13 02/01/2024 ALT 24 02/01/2024 BUN 15 02/01/2024 ANIONGAP 22 (H) 02/01/2024 PHOS 4.2 01/27/2024 ALBUMIN 3.6 02/01/2024 GFRF 79 02/18/2023 Lab Results Component Value Date TRIG 119 11/18/2023 CHOL 178 11/18/2023 LDLCALC 62 11/18/2023 HDL 92.5 11/18/2023 Lab Results Component Value Date HGBA1C 7.7 (H) 01/08/2024 Current Outpatient Medications on File Prior to Visit Medication Sig Dispense Refill albuterol 90 mcg/actuation inhaler Inhale 2 puffs every 4 hours if needed. amiodarone (Pacerone) 200 mg tablet Take by mouth. Take 2 tablets (400 mg) by mouth 2 times daily for 11 days, THEN 1 tablet (200 mg) daily. Take 2 tablets twice daily starting 01/23/24 through 02/01/24 amLODIPine (Norvasc) 5 mg tablet Take 1 tablet (5 mg) by mouth once daily. 90 tablet 0 [] amoxicillin-pot clavulanate (Augmentin) 875-125 mg tablet Take 1 tablet (875 mg) by mouth2 times a day for 10 days. 20 tablet 0 apixaban (Eliquis) 5 mg tablet Take 1 tablet (5 mg) by mouth twice a day. aspirin 81 mg EC tablet Take 1 tablet (81 mg) by mouth once daily. atovaquone (Mepron) 750 mg/5 mL suspension Take by mouth once daily. blood sugar diagnostic (Contour Next Test Strips) strip 1 each 2 times a day. 200 strip 1 carvedilol (Coreg) 25 mg tablet Take 1 tablet (25 mg) by mouth 2 times daily (morning and late afternoon). cholecalciferol (Vitamin D-3) 50 MCG (2000 UT) tablet Take 2 tablets (4,000 Units) by mouth once daily. clindamycin (Cleocin T) 1 % lotion twice a day. Apply sparingly and massage in colchicine 0.6 mg tablet 1 tablet Orally ezetimibe (Zetia) 10 mg tablet Take 1 tablet (10 mg) by mouth once daily. fluocinonide (Lidex) 0.05 % external solution 1 (one) time each day. Apply to affected areas fluticasone (Flonase) 50 mcg/actuation nasal spray Administer 1 spray into each nostril once daily.Shake gently. Before first use, prime pump. After use, clean tip and replace cap. 16 g 1 icosapent ethyL (Vascepa) 1 gram capsule Take 2 capsules (2 g) by mouth twice a day. Kerendia 10 mg tablet tablet Take 1 tablet (10 mg) by mouth once daily. lansoprazole (Prevacid) [address] capsule TAKE 1 CAPSULE BY MOUTH ONCE DAILY. 90 capsule 3 linagliptin-metformin (Jentadueto XR) 2.5-1,000 mg tablet, IR - ER, biphasic 24hr Take 2 tablets bymouth once daily. 180 tablet 1 losartan (Cozaar) 100 mg tablet TAKE 1 TABLET BY MOUTH ONCE DAILY. 90 tablet 3 metoprolol tartrate (Lopressor) 25 mg tablet TAKE 1 TABLET BY MOUTH DAILY IN THE MORNING AND 1 TABLET DAILY BEFORE BEDTIME. 180 tablet 3 predniSONE (Deltasone) 5 mg tablet 10 then 9 then 8 then 7 etc. until gone 55 tablet 0 rosuvastatin (Crestor) 10 mg tablet TAKE 1 TABLET BY MOUTH ONCE DAILY. 90 tablet 3 sertraline (Zoloft) 25 mg tablet Take 1 tablet (25 mg) by mouth once daily. Spiriva Respimat 2.5 mcg/actuation inhaler Inhale 2 puffs once daily. [DISCONTINUED] citalopram (CeleXA) 20 mg tablet TAKE 1 TABLET BY MOUTH ONCE DAILY. (Patient not taking: Reported on 01/25/2024) 90 tablet 3 No current facility-administered medications on file prior to visit. Assessment/Plan Problem List Items Addressed This Visit None Visit Diagnoses Atrial fibrillation, unspecified type (Multi) 1. CONTINUE Jentadueto 2.5 / 1000 mg XR take 2 tablets by mouth once daily. - Will evaluate at adohW3n check in the fall whether pt would be a candidate for further glycemic reduction thru med intervention changes 2. Medications are dosed appropriately for current renal and hepatic function, continue to monitor. 3. CONTINUE taking kerendia 10 mg daily. Continue monitoring with CMP and updated BW 4. Continue taking spiriva 2.5 mcg/inh 2 puffs daily 5. Continue all other meds as prescribed by PCP Clinical Pharmacist follow-up: as needed Type of Encounter: Virtual Thank you, Matteo Lopez, CricketD, [facility] Verbal consent to manage patient's drug therapy was obtained from the patient. They were informed they may decline to participate or withdraw from participation in pharmacy services at any time. documented in this encounterOhio State [facility] System Work Phone: [phone]) 264-114206-18-2024 Telephone encounter Note* Telephone Encounter - Loly Cooper - 02/02/2024 9:50 AM EDT Patient agreed to have DCC with Dr. Craft on 02/10/24 at 9 am at [facility]. BMP: 01-19-24 CBC: 01-22-24 EK02-01-24 H&P OV: 02-01-24 Please route this encounter to the appropriate SEBASTIAN. [facility] [id number] Telephone encounter Note* Telephone Encounter - Kristy Doran APRN - [place] - 02/02/2024 9:24 AM EDT PC to patient to review lab results. Liver enzymes have normalized. As previously discussed with Dr. Jerome, will increase amiodarone to 400 mg p.o. twice daily x 1 week and will schedule a cardioversion at [place] next week. She already has a follow-up scheduled with me in the [facility] office 1 week post cardioversion. She was instructed to not miss any doses of Eliquis prior to her cardioversion. A new prescription for the higher dose of amiodarone was sent to her local pharmacy. Contains abnormal data Comprehensive Metabolic Panel Order: [id number] Component Ref Range & Units 1 d ago Glucose 74 - 99 mg/dL 112 High Sodium 136 - 145 mmol/L 138 Potassium 3.5 - 5.3 mmol/L 4.9 Chloride 98 - 107 mmol/L 100 Bicarbonate 21 - 32 mmol/L 21 Anion Gap 10 - 20 mmol/L 22 High Urea Nitrogen 6 - 23 mg/dL 15 Creatinine 0.50 - 1.05 mg/dL 0.95 eGFR >60 mL/min/1.73m*2 61 Comment: Calculations of estimated GFR are performed using the 2020 CKD-EPI Study Refit equation without the race variable for the IDMS-Traceable creatinine methods. https://jasn.asnjournals.org/content/early//ASN.0496902908 Calcium 8.6 - 10.6 mg/dL 9.4 Albumin 3.4 - 5.0 g/dL 3.6 Alkaline Phosphatase 33 - 136 U/L 47 Total Protein 6.4 - 8.2 g/dL 5.8 Low AST 9 - 39 U/L 13 Bilirubin, Total 0.0 - 1.2 mg/dL 0.7 ALT 7 - 45 U/L 24 Comment: Patients treated with Sulfasalazine may generate falsely decreased results for ALT. Resulting Agency [facility] [id number] Telephone encounter Note* Telephone Encounter - SUJATA Enamorado CNP - 02/01/2024 4:51 PM EDT noted [facility] [id number] Miscellaneous Notes* Telephone Encounter - SUJATA Enamorado CNP - 02/01/2024 4:51 PM EDT noted * Telephone Encounter - Selam Dyer - 02/01/2024 4:44 PM EDT Patient has been approved for financial assistance through [employer] and will be able to get eliquis through [facility] at no cost. We set the patients delivery up for closer to when she is going to be needing the medication. Thank you! * Telephone Encounter - Selam Dyer - 02/01/2024 4:44 PM EDT ----- Message from SUJATA Enamorado CNP sent at 02/01/2024 2:35 PM EDT ----- Recent Eliquis started on recent hospitalization. Please assist with cost. Thank you. documented in this encounterSSt. John of God [id number] Telephone encounter Note* Telephone Encounter - Selam Dyer - 02/01/2024 4:44 PM EDT Patient has been approved for financial assistance through [employer] and will be able to get eliquis through [facility] at no cost. We set the patients delivery up for closer to when she is going to be needing the medication. Thank you! [facility] [id number] Telephone encounter Note* Telephone Encounter - Selam Dyer - 02/01/2024 4:44 PM EDT ----- Message from SUJATA Enamorado CNP sent at 02/01/2024 2:35 PM EDT ----- Recent Eliquis started on recent hospitalization. Please assist with cost. Thank you. [facility] [id number] Evaluation + Plan note* Assessment & Plan Note - SUJATA Enamorado CNP - 02/01/2024 2:30 PM EDTAssociated Problem(s): Obstructive sleep apnea syndrome History of INGA but has not used CPAP for 6 or 7 years. Due to new onset A-fib and heart failure, I am recommending a home sleep study. She states she has lost quite a bit of weight since she was initially diagnosed with sleep apnea so it is unclear if she would still need CPAP. -Home sleep study [facility] [id number] Miscellaneous Notes* Assessment & Plan Note - SUJATA Enamorado CNP - 02/01/2024 2:30 PM EDTAssociated Problem(s): Obstructive sleep apnea syndrome History of INGA but has not used CPAP for 6 or 7 years. Due to new onset A-fib and heart failure, I am recommending a home sleep study. She states she has lost quite a bit of weight since she was initially diagnosed with sleep apnea so it is unclear if she would still need CPAP. 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 Diabetic related disease. -Continue diabetic management -Continue losartan and Finerenone which is managed by Dr. Livingston -Consider SGLT2i given ASCVD+DM2+CKD. Will defer to Renal and Endocrine. * Assessment & Plan Note - SUJATA Enamorado CNP - 02/01/2024 8:53 AM EDTAssociated Problem(s): Dyslipidemia Target LDL <70. LDL 62 (11/2023) - Cont zetia - Cont crestor - Cont Vascepa. -Cont lifestyle mgt given elev TG; if much higher over time, consider Tricor * Assessment & Plan Note - SUJATA Enamorado CNP - 02/01/2024 8:51 AM EDTAssociated Problem(s): Bilateral carotid artery stenosis Moderate. Coronary risk equivalent. No symptoms. She has a history of right carotid endarterectomy. -Carotid US 04/2024 -Given ASCVD and DM2 consider add SGLT2i (will hold off for now since we are starting lasix) * Assessment & Plan Note - SUJATA Enamorado CNP - 02/01/2024 8:50 AM EDTAssociated Problem(s): Essential hypertension Controlled. Goal less than 130/80. History of supine hypertension with orthostasis. 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 EF 48% per echocardiogram January 2024. Current heart failure symptoms include dyspnea on exertion, mild lower extremity edema and orthopnea. She does not appear grossly volume overloaded on physical exam. -Continue carvedilol 25 mg p.o. twice daily -Continue losartan 100 mg p.o. daily -Start Lasix 20 mg p.o. daily -Recheck proBNP -Heart failure self-care reviewed * Assessment & Plan Note - SUJATA Enamorado CNP - 02/01/2024 8:45 AM EDTAssociated Problem(s): Elevated LFTs Elevated LFTs during recent hospitalization in setting of cardiogenic shock. -Recheck CMP to ensure her LFTs are downtrending * Assessment & Plan Note - SUJATA Enamorado CNP - 02/01/2024 8:45 AM EDTAssociated Problem(s): On amiodarone therapy On amiodarone for rhythm suppression. -Continue amiodarone -TSH and LFTs every 6 months, due July 2024 -Will recheck LFTs today as they were elevated during her hospitalization due to cardiogenic shock to ensure they are trending down * Assessment & Plan Note - SUJATA Enamorado CNP - 02/01/2024 8:44 AM EDTAssociated Problem(s): On continuous oral anticoagulation Tolerating Eliquis without abnormal bleeding. -Continue Eliquis -CBC and BMP every 6 months, due July 2024 * Assessment & Plan Note - SUJATA Enamorado CNP - 02/01/2024 8:44 AM EDTAssociated Problem(s): PAF (paroxysmal atrial fibrillation) (HCC) Nonvalvular. S/p DMITRY/DCC 01/2024. On amiodarone for rhythm suppression as she had heart failure whenshe was in A-fib. She is back in A-fib with controlled heart rate in the 70s. She is symptomatic with heart failure symptoms. -Discussed with Dr. Jerome, will recheck a CMP and if her liver enzymes are trending down would reload with amiodarone 400 mg p.o. twice daily x 1 week and schedule cardioversion in 1 week -Refer to EP for further evaluation -Continue carvedilol 25 mg p.o. twice daily -Continue Eliquis 5 mg p.o. twice daily (sent to [facility] to assist with cost) documented in this [facility]06-17-2024 History of Present illness Narrative* SUJATA Enamorado CNP - 02/01/2024 1:00 PM EDT Images from the original note were not included. [facility] [address] [place] [address] [address] [facility] [address] Dept: [phone] Dept Visit type: Established : 1945 Reason for Visit: Hospital Follow-up, Atrial Fibrillation, and Congestive Heart Failure Assessment and Plan 1. PAF (paroxysmal atrial fibrillation) (HCC) Assessment & Plan: Nonvalvular. S/p DMITRY/DCC 01/2024. On amiodarone for rhythm suppression as she had heart failure whenshe was in A-fib. She is back in A-fib with controlled heart rate in the 70s. She is symptomatic with heart failure symptoms. -Discussed with Dr. Jerome, will recheck a CMP and if her liver enzymes are trending down would reload with amiodarone 400 mg p.o. twice daily x 1 week and schedule cardioversion in 1 week -Refer to EP for further evaluation -Continue carvedilol 25 mg p.o. twice daily -Continue Eliquis 5 mg p.o. twice daily (sent to [facility] to assist with cost) Orders: - ECG 12 lead - CLINIC PERFORMED - Home sleep test - amiodarone (Pacerone) 200 MG tablet; Take 1 tablet (200 mg) by mouth daily., Starting 02/01/2024, Normal - apixaban (Eliquis) 5 MG tablet; Take 1 tablet (5 mg) by mouth 2 times daily., Starting Thu02/01/2024, Normal - [facility] 2. On continuous oral anticoagulation Assessment & Plan: Tolerating Eliquis without abnormal bleeding. -Continue Eliquis -CBC and BMP every 6 months, due July 2024 Orders: - apixaban (Eliquis) 5 MG tablet; Take 1 tablet (5 mg) by mouth 2 times daily., Starting 02/01/2024, Normal 3. On amiodarone therapy Assessment & Plan: On amiodarone for rhythm suppression. -Continue amiodarone -TSH and LFTs every 6 months, due July 2024 -Will recheck LFTs today as they were elevated during her hospitalization due to cardiogenic shock to ensure they are trending down 4. Elevated LFTs Assessment & Plan: Elevated LFTs during recent hospitalization in setting of cardiogenic shock. -Recheck CMP to ensure her LFTs are downtrending 5. 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 EF 48% per echocardiogram January 2024. Current heart failure symptoms include dyspnea on exertion, mild lower extremity edema and orthopnea. She does not appear grossly volume overloaded on physical exam. -Continue carvedilol 25 mg p.o. twice daily -Continue losartan 100 mg p.o. daily -Start Lasix 20 mg p.o. daily -Recheck proBNP -Heart failure self-care reviewed Orders: - Home sleep test - furosemide (Lasix) 20 MG tablet; Take 1 tablet (20 mg) by mouth daily., Starting 02/01/2024, Until Thu01/31/2025, Normal - Comprehensive metabolic panel - NT PRO BNP 6. Essential hypertension Assessment & Plan: Controlled. Goal less than 130/80. History of supine hypertension with orthostasis. -Previously taken off hydrochlorothiazide due to orthostasis -Continue amlodipine, carvedilol, losartan 7. Bilateral carotid artery stenosis Assessment & Plan: Moderate. Coronary risk equivalent. No symptoms. She has a history of right carotid endarterectomy. -Carotid US 04/2024 -Given ASCVD and DM2 consider add SGLT2i (will hold off for now since we are starting lasix) 8. Dyslipidemia Assessment & Plan: Target LDL <70. LDL 62 (11/2023) - Cont zetia - Cont crestor - Cont Vascepa. -Cont lifestyle mgt given elev TG; if much higher over time, consider Tricor Orders: - ezetimibe (Zetia) 10 MG tablet; Take 1 tablet (10 mg) by mouth in the morning., Starting 02/01/2024, Normal 9. 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 Diabetic related disease. -Continue diabetic management -Continue losartan and Finerenone which is managed by Dr. Livingston -Consider SGLT2i given ASCVD+DM2+CKD. Will defer to Renal and Endocrine. 10. INGA (obstructive sleep apnea) - Home sleep test 11. Obstructive sleep apnea syndrome Assessment & Plan: History of INGA but has not used CPAP for 6 or 7 years. Due to new onset A-fib and heart failure, I am recommending a home sleep study. She states she has lost quite a bit of weight since she was initially diagnosed with sleep apnea so it is unclear if she would still need CPAP. -Home sleep study Follow up in about 2 weeks (around 02/15/2024). Subjective Hx of carotid dz and CEA, breast CA, CKD stage II, tobacco abuse, COPD, HTN, HFmrEF, PAF She was last seen by Dr. Jerome April 2023 when she was stable from a cardiac standpoint and no changes were made to her medical therapy. She was admitted to [facility] September 2023 with acute pneumothorax after having an outpatient [facility]. Shereceived a chest tube. No cardiac decompensation at that office visit. She was recently admitted to [facility] January 2024 after being seen by her PCP for weakness and shortness of breath. She was sent to the ER. She was noted to have elevated lactate and LFTs and was felt to bein cardiogenic shock. She was also found to be in new onset A-fib with RVR. She had a DMITRY guided cardioversion which showed EF of 55% with no thrombus. She was noted to have 3+ MR in setting of severe systemic hypertension with systolic blood pressure 190. After she was placed on nitroprusside and her blood pressure was improved her MR was noted to be 1+. She was noted to have mild aortic stenosis with mean gradient 9 mmHg. Post successful cardioversion she was placed on amiodarone. 2 days later she had a follow-up echocardiogram which showed EF of 48% with low normal RV function, aortic sclerosis, 2+ MR and RVSP 46 mmHg. Her GDMT was titrated and she was discharged home. She presents todayfor continued follow-up. Today, she is still having some weakness, CRUZ and occasional lower extremity edema. She has orthopnea symptoms and feels more comfortable sleeping in a recliner. Her weight is down 11 pounds from herlast office visit in April 2023, but she had lost some weight prior to her hospitalization. Shehas occasional dizziness and lightheadedness. Her symptoms are consistent with volume overload.Her EKG shows she is back in Afib. Rolando Peters Review of Systems Constitutional: Negative for activity change, chills, diaphoresis, fatigue and fever. HENT: Positive for nosebleeds (small amount when blowing her nose). Negative for trouble swallowing. Eyes: Negative for visual disturbance. Respiratory: Positive for apnea (not using CPAP, has not used for 6-7 years), cough (usually in theAM), shortness of breath (CRUZ) and wheezing. Negative for chest tightness. + orthopnea Cardiovascular: Positive for leg swelling (if feet dependent, improves with elevation). Negative for chest pain and palpitations. Gastrointestinal: Negative for abdominal distention, abdominal pain, blood in stool, diarrhea, nausea and vomiting. Genitourinary: Negative for hematuria. Musculoskeletal: Positive for arthralgias, gait problem (occasional unsteadiness) and myalgias. Skin: Negative for color change and rash. Neurological: Positive for dizziness (since yesterday) and light-headedness (since yesterday). Negative for syncope and weakness. Hematological: Does not bruise/bleed easily. Psychiatric/Behavioral: Positive for dysphoric mood. Allergies Allergen Reactions Isosulfan Blue Anaphylaxis Methylene Blue Sulfa Antibiotics Rash Outpatient Medications Prior to Visit Medication Sig Dispense Refill albuterol (Ventolin HFA) 108 (90 Base) MCG/ACT inhaler Inhale 2 puffs every 4 hours as needed for wheezing or shortness of breath. 8 g 11 amLODIPine (Norvasc) 5 MG tablet Take 5 mg by mouth daily. atovaquone (Mepron) 750 MG/5ML suspension Take 10 mL (1,500 mg) by mouth daily. 300 mL 3 carvedilol (Coreg) 25 MG tablet Take 1 tablet (25 mg) by mouth in the morning and 1 tablet (25 mg) in the evening. Take with meals. 60 tablet 11 cholecalciferol (Vitamin D-3) 50 MCG (2000 UT) tablet Take 4,000 Units by mouth daily. Finerenone (Kerendia) 10 MG tablet Take 1 tablet by mouth daily. fluticasone (Cutivate) 0.05 % cream Apply topically Daily as needed (itching). fluticasone (Flonase) 50 MCG/ACT nasal spray Administer 1 spray into each nostril daily. Shake gently. Before first use, prime pump. After use, clean tip and replace cap. Jentadueto XR 2.5-1000 MG per 24 hr tablet take 2 tablets by mouth once daily lansoprazole (Prevacid) [address] capsule 1 capsule in the morning. losartan (Cozaar) 100 MG tablet losartan 100 mg tablet predniSONE (Deltasone) 10 MG tablet Take 2 tablets (20 mg) by mouth daily. Take 2 tablets (20mg) daily x 4 weeks, then 1 tablet (10mg) daily x 4 weeks 60 tablet 0 rosuvastatin (Crestor) 10 MG tablet daily. sertraline (Zoloft) 25 MG tablet Take 1 tablet (25 mg) by mouth daily. 30 tablet 11 tiotropium (Spiriva Respimat) 2.5 MCG/ACT inhaler Inhale 2 puffs daily. 1 each 11 Vascepa 1 g capsule TAKE 2 CAPSULES BY MOUTH 2 TIMES DAILY 360 capsule 3 amiodarone (Pacerone) 200 MG tablet Take 2 tablets (400 mg) by mouth 2 times daily for 11 days, THEN 1 tablet (200 mg) daily. Take 2 tablets twice daily starting 01/23/24 through 02/01/24. Starting 02/02/24, take 1 tablet once daily.. 60 tablet 1 apixaban (Eliquis) 5 MG tablet Take 1 tablet (5 mg) by mouth 2 times daily. 60 tablet 3 aspirin 81 MG chewable tablet daily. ezetimibe (Zetia) 10 MG tablet Take 1 tablet (10 mg) by mouth in the morning. 90 tablet 1 colchicine 0.6 MG tablet Take 0.6 mg by mouth daily. No facility-administered medications prior to visit. Past Medical History: Diagnosis Date Arrhythmia Arthritis Asthma Breast cancer (HCC) 1993 Right Breast(Mastectomy) Breast cancer (HCC) 2011 Left Breast(Simple Mastectomy, SLND) Chronic kidney disease Coronary artery disease Diabetes (HCC) GERD (gastroesophageal reflux disease) High blood pressure Occlusion and stenosis of unspecified carotid artery Pure hypercholesterolemia Syncope and collapse 08/29/2022 Social History Tobacco Use Smoking status: Former Packs/day: 1.00 Years: 30.00 Additional pack years: 0.00 Total pack years: 30.00 Types: Cigarettes Quit date: 08/17/1993 Years since quittin.4 Smokeless tobacco: Never 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: , 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[facility], 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, 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 Substance Use Topics Alcohol use: Yes Alcohol/week: 2.0 - 16.0 standard drinks of alcohol Types: 2 Glasses of wine per week Comment: occ Past Surgical History: Procedure Laterality Date CAROTID ENDARTERECTOMY Right 2009 CATARACT EXTRACTION Bilateral 2006 CHEST TUBE INSERTION Right 10/05/2023 ENDOBRONCHIAL ULTRASOUND EBUS (HISTORICAL) 10/05/2023 MASTECTOMY Left 2010 simple/reconstruction/gingivagrapht MASTECTOMY Right 1993 reconstruction (TRAM) TOTAL ABDOMINAL HYSTERECTOMY W/ BILATERAL SALPINGOOPHORECTOMY 1998 TUBAL LIGATION 1979 Family History Problem Relation Name Age of Onset Ovarian cancer Mother 66 Heart attack Father Lucita (Mother) 76 High Blood Pressure Father Lucita (Mother) Macular degeneration Father Lucita (Mother) Cancer Father Lucita (Mother) Ovarian cancer Mother's Sister 45 Other ([id number]) Son neuofibromatosis, BRCA1 positive Neurofibromatosis Son High Blood Pressure Son Cancer Son hairy cell leukemia Breast cancer Cousin 42 +brca Bladder Cancer Cousin 19 Hypertension Sister Angie Kidney disease Sister Angie Hypertension Sister Mireya Sister Kidney disease Sister Mireya Sister Objective Vitals: 02/01/24 1300 02/01/24 1305 BP: (!) 106/40 (!) 106/40 BP Location: Left arm Left arm Patient Position: Lying Sitting BP Cuff Size: Adult Adult Pulse: 74 Resp: 15 Weight: 143 lb (64.9 kg) Height: 5' 7 (1.702 m) Physical Exam Vitals reviewed. Constitutional: General: She is not in acute distress. Appearance: She is well-developed. HENT: Head: Normocephalic and atraumatic. Mouth/Throat: Mouth: Mucous membranes are moist. Pharynx: Oropharynx is clear. Eyes: General: No scleral icterus. Extraocular Movements: Extraocular movements intact. Neck: Vascular: No JVD. Cardiovascular: Rate and Rhythm: Normal rate. Rhythm irregularly irregular. Heart sounds: Normal heart sounds. No murmur heard. Comments: Trace pedal edema Pulmonary: Effort: Pulmonary effort is normal. Breath sounds: Examination of the right-lower field reveals decreased breath sounds. Examination ofthe left-lower field reveals decreased breath sounds. Decreased breath sounds present. Abdominal: General: Bowel sounds are normal. Palpations: Abdomen is soft. Musculoskeletal: Right lower leg: Edema present. Left lower leg: Edema present. Neurological: Mental Status: She is alert. Psychiatric: Attention and Perception: Attention normal. Behavior: Behavior is cooperative. Data Reviewed and Summarized EF BP Date Value Ref Range Status 01/22/2024 57 55 - 100 % Final EF Physician Date Value Ref Range Status 01/22/2024 48 % Final Review of tests/labs done/ordered within my specialty: EKG in office: Afib with HR 74, Qtc 421 msec. DMITRY 01/20/2024 Left Ventricle: Left ventricle size is normal. Increased wall thickness. Normal left ventricular systolic function. The EF by visual approximation is 55%. Normal wall motion. Right Ventricle: Right ventricle size is normal. Normal systolic function. Mitral Valve: Valve structure is normal. Moderately severe (3+) regurgitation (when systolic BP ~ 190) with a centrally directed jet which improved to mild (1+) regurgitation with addition of nitroprusside. No stenosis noted. Aortic Valve: Mild stenosis of the aortic valve. AV mean gradient is 9 mmHg. Left Atrium: Left atrium is dilated. Normal appendage flow velocity. No left atrial appendage thrombus noted. Successful DMITRY guided cardioversion from atrial fibrillation to normal sinus rhythm. TTE 01/22/2024 Left Ventricle: Left ventricle size is normal. Normal wall thickness. Normal left ventricular systolic function. EF by visual approximation is 48%. Global longitudinal strain is reduced with a value of -14.7%. Normal wall motion. Grade III diastolic dysfunction with increased LAP. Right Ventricle: Right ventricle size is normal. Low normal systolic function. RV Peak S' is 8 cm/s. Aortic Valve: Trileaflet. Cusp sclerosis. Mild (1+) regurgitation. Aortic slcerosis. AV mean gradient is 7 mmHg. AV peak gradient is 12 mmHg. AV peak velocity is 1.7 m/s. Mitral Valve: Moderately thickened leaflets. Moderately calcified leaflets. Mild annular calcification. Moderate (2+) regurgitation with a posterior directed jet. No stenosis noted. Tricuspid Valve: Valve structure is normal. Mild (1+) regurgitation. Mild to moderately elevated RVSP. RVSP is 46 mmHg. Left Atrium: Left atrium is moderately dilated. Right Atrium: Right atrium size is normal. Aorta: Normal sized sinuses of Valsalva and ascending aorta. Pericardium: No pericardial effusion. IVC/SVC: IVC diameter is dilated and decreases greater than 50% during inspiration; therefore the estimated right atrial pressure is intermediate (~8 mmHg). Review of tests/labs done/ordered outside my specialty: Latest Reference Range & Units 01/22/24 00:06 SODIUM 135 - 145 mmol/L 129 (L) POTASSIUM 3.5 - 5.1 mmol/L 4.0 CHLORIDE 98 - 107 mmol/L 102 Carbon Dioxide (CO2) 22 - 30 mmol/L 24 ANION GAP 3 - 13 mmol/L 3 Urea Nitrogen (BUN) 7 - 17 mg/dL 17 Creatinine 0.52 - 1.04 mg/dL 0.87 eGFR >60.0 mL/min/1.73m*2 68.3 GLUCOSE 70 - 100 mg/dL 102 (H) CALCIUM 8.4 - 10.4 mg/dL 7.6 (L) PHOSPHORUS 2.5 - 4.5 mg/dL 2.4 (L) MAGNESIUM 1.6 - 2.3 mg/dL 1.9 ALKALINE PHOSPHATASE - [facility] 38 - 126 U/L 85 ALBUMIN - [facility] 3.5 - 5.0 g/dL 3.4 (L) TOTAL PROTEIN 6.3 - 8.2 g/dL 5.9 (L) AST - [facility] 15 - 46 U/L 90 (H) ALT - [facility] 0 - 34 U/L 139 (H) BILIRUBIN, TOTAL - [facility] 0.2 - 1.3 mg/dL 1.4 (H) Auto WBC 3.6 - 10.7 10*3/uL 8.6 RBC 3.80 - 5.20 10*6/uL 3.13 (L) HEMOGLOBIN 11.7 - 16.0 g/dL 9.6 (L) HEMATOCRIT 35.0 - 47.0 % 29.8 (L) MCV 77.0 - 99.0 fL 95.2 MCH 26.0 - 34.0 pg 30.7 MCHC 30.5 - 36.0 % 32.2 RDW 11.5 - 15.0 % 15.4 (H) Platelets 140 - 440 10*3/uL 209 Mean Platelet Volume (MPV) 9.0 - 12.7 fL 9.9 Neutrophils Relative 38.0 - 82.0 % 76.2 Lymphocytes Relative 15.0 - 45.0 % 10.7 (L) Monocytes Relative 5.0 - 13.0 % 9.2 Eosinophils Relative 0.0 - 6.0 % 2.3 Basophils Relative 0.0 - 2.0 % 0.5 ABSOLUTE LYMPHOCYTES - [facility] 1.0 - 4.3 10*3/uL 0.9 (L) Monocytes Absolute 0.0 - 0.9 10*3/uL 0.8 Eosinophils Absolute 0.0 - 0.5 10*3/uL 0.2 Basophils Absolute 0.0 - 0.2 10*3/uL 0.0 nRBC 0.0 - 2.0 /100 WBCs 0.0 Immature Grans Absolute <0.1 10*3/uL 0.1 (H) Immature Grans % 0.0 - 2.0 % 1.1 Absolute Neutrophils 1.8 - 7.5 10*3/uL 6.5 (L): Data is abnormally low (H): Data is abnormally high Contains abnormal data Renal Function Panel Order: [id number] Component Ref Range & Units 5 d ago Glucose 74 - 99 mg/dL 179 High Sodium 136 - 145 mmol/L 133 Low Potassium 3.5 - 5.3 mmol/L 4.8 Chloride 98 - 107 mmol/L 98 Bicarbonate 21 - 32 mmol/L 23 Anion Gap 10 - 20 mmol/L 17 Urea Nitrogen 6 - 23 mg/dL 19 Creatinine 0.50 - 1.05 mg/dL 0.89 eGFR >60 mL/min/1.73m*2 66 Comment: Calculations of estimated GFR are performed using the 2020 CKD-EPI Study Refit equation without the race variable for the IDMS-Traceable creatinine methods. https://jasn.asnjournals.org/content/early//ASN.8501500946 Calcium 8.6 - 10.6 mg/dL 9.0 Phosphorus 2.5 - 4.9 mg/dL 4.2 Comment: The performance characteristics of phosphorus testing in heparinized plasma have been validated by the individual laboratory site where testing is performed. Testing on heparinized plasmais not approved by the FDA; however, such approval is not necessary. Albumin 3.4 - 5.0 g/dL 3.6 Resulting Agency [facility] Specimen Collected: 01/27/24 11:25 Performed by: [facility] Last Resulted: 01/28/24 02:11 CBC and Auto Differential Order: [id number] Component Ref Range & Units 5 d ago WBC 4.4 - 11.3 x10*3/uL 12.8 High nRBC 0.0 - 0.0 /100 WBCs 0.0 RBC 4.00 - 5.20 x10*6/uL 3.33 Low Hemoglobin 12.0 - 16.0 g/dL 10.3 Low Hematocrit 36.0 - 46.0 % 32.9 Low MCV 80 - 100 fL 99 MCH 26.0 - 34.0 pg 30.9 MCHC 32.0 - 36.0 g/dL 31.3 Low RDW 11.5 - 14.5 % 14.8 High Platelets 150 - 450 x10*3/uL 334 Neutrophils % 40.0 - 80.0 % 86.3 Immature Granulocytes %, Automated 0.0 - 0.9 % 1.3 High Comment: Immature Granulocyte Count (IG) includes promyelocytes, myelocytes and metamyelocytes but does not include bands. Percent differential counts (%) should be interpreted in the context of the absolute cell counts (cells/UL). Lymphocytes % 13.0 - 44.0 % 4.0 Monocytes % 2.0 - 10.0 % 7.6 Eosinophils % 0.0 - 6.0 % 0.4 Basophils % 0.0 - 2.0 % 0.4 Neutrophils Absolute 1.60 - 5.50 x10*3/uL 11.07 High Comment: Percent differential counts (%) should be interpreted in the context of the absolute cell counts (cells/uL). Immature Granulocytes Absolute, Automated 0.00 - 0.50 x10*3/uL 0.17 Lymphocytes Absolute 0.80 - 3.00 x10*3/uL 0.51 Low Monocytes Absolute 0.05 - 0.80 x10*3/uL 0.98 High Eosinophils Absolute 0.00 - 0.40 x10*3/uL 0.05 Basophils Absolute 0.00 - 0.10 x10*3/uL 0.05 Resulting Agency [facility] Specimen Collected: 01/27/24 11:25 Independent interpretation of tests: SUJATA Montoya CNP documented in this [facility]06-17-2024 Telephone encounter Note* Telephone Encounter - Sravani Vaughan RN - 02/01/2024 9:19 AM EDT Patient called office stating she just picked up refill of her Spiriva Respimat 2.5 mcg inhaler. She reports she was recently hospitalized and her had been ill and was hospitalized as well and she is unable to locate the new inhaler anywhere and it is too soon to get another refill. She is asking if she can picker machine operator a sample at the [place] office as it is closer to her. This RN contactedDenise at the [place] office and she set aside 2 boxes of Spiriva Respimat 2.5 mcg for patient. Patient notified. 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 Diabetic related disease. -Continue diabetic management -Continue losartan and Finerenone which is managed by Dr. Livingston -Consider SGLT2i given ASCVD+DM2+CKD. Will defer to Renal and Endocrine. [facility] [id number] Evaluation + Plan note* Assessment & Plan Note - SUJATA Enamorado CNP - 02/01/2024 8:53 AM EDTAssociated Problem(s): Dyslipidemia Target LDL <70. LDL 62 (11/2023) - Cont zetia - Cont crestor - Cont Vascepa. -Cont lifestyle mgt given elev TG; if much higher over time, consider Tricor [facility] [id number] Evaluation + Plan note* Assessment & Plan Note - SUJATA Enamorado CNP - 02/01/2024 8:51 AM EDTAssociated Problem(s): Bilateral carotid artery stenosis Moderate. Coronary risk equivalent. No symptoms. She has a history of right carotid endarterectomy. -Carotid US 04/2024 -Given ASCVD and DM2 consider add SGLT2i (will hold off for now since we are starting lasix) [id number] Evaluation + Plan note* Assessment & Plan Note - SUJATA Enamorado CNP - 02/01/2024 8:50 AM EDTAssociated Problem(s): Essential hypertension Controlled. Goal less than 130/80. History of supine hypertension with orthostasis. 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 EF 48% per echocardiogram January 2024. Current heart failure symptoms include dyspnea on exertion, mild lower extremity edema and orthopnea. She does not appear grossly volume overloaded on physical exam. -Continue carvedilol 25 mg p.o. twice daily -Continue losartan 100 mg p.o. daily -Start Lasix 20 mg p.o. daily -Recheck proBNP -Heart failure self-care reviewed [facility] [id number] Evaluation + Plan note* Assessment & Plan Note - SUJATA Enamorado CNP - 02/01/2024 8:45 AM EDTAssociated Problem(s): Elevated LFTs Elevated LFTs during recent hospitalization in setting of cardiogenic shock. -Recheck CMP to ensure her LFTs are downtrending [facility] [id number] Evaluation + Plan note* Assessment & Plan Note - SUJATA Enamorado CNP - 02/01/2024 8:45 AM EDTAssociated Problem(s): On amiodarone therapy On amiodarone for rhythm suppression. -Continue amiodarone -TSH and LFTs every 6 months, due July 2024 -Will recheck LFTs today as they were elevated during her hospitalization due to cardiogenic shock to ensure they are trending down [facility] [id number] Evaluation + Plan note* Assessment & Plan Note - SUJATA Enamorado CNP - 02/01/2024 8:44 AM EDTAssociated Problem(s): On continuous oral anticoagulation Tolerating Eliquis without abnormal bleeding. -Continue Eliquis -CBC and BMP every 6 months, due July 2024 [facility] [id number] Evaluation + Plan note* Assessment & Plan Note - SUJATA Enamorado CNP - 02/01/2024 8:44 AM EDTAssociated Problem(s): PAF (paroxysmal atrial fibrillation) (HCC) Nonvalvular. S/p DMITRY/DCC 01/2024. On amiodarone for rhythm suppression as she had heart failure whenshe was in A-fib. She is back in A-fib with controlled heart rate in the 70s. She is symptomatic with heart failure symptoms. -Discussed with Dr. Jerome, will recheck a CMP and if her liver enzymes are trending down would reload with amiodarone 400 mg p.o. twice daily x 1 week and schedule cardioversion in 1 week -Refer to EP for further evaluation -Continue carvedilol 25 mg p.o. twice daily -Continue Eliquis 5 mg p.o. twice daily (sent to [facility] to assist with cost) [facility] [id number] Nurse Note* Magalis Sibley RN - 01/22/2024 5:47 PM EDT 1730- Reviewed discharge instructions with Daughter Ene and patient. Verbalized understanding. PIVs removed. Discharged via wheelchair [facility] [id number] Nurse Note* Magalis Sibley RN - 01/22/2024 5:47 PM EDT 1730- Reviewed discharge instructions with Daughter Ene and patient. Verbalized understanding. PIVs removed. Discharged via wheelchair * Radha Yuan RN - 01/20/2024 2:45 PM EDT 1445 time out with pt rn, Dr. Alexander Matthew for DMITRY with Cardioversion for A fib VSS through out procedure, DMITRY completed, cardioverted X 2 at 200 joles to sinus tach. Total of 210mg IV propofol given 1345 pt awake, alert, oriented X 4, VSS, daughter to bedside. documented in this [facility]06-07-2024 History of Present illness Narrative* Melissa Bella RCP - 01/22/2024 3:40 PM EDT Images from the original note were not included. [id number]] Respiratory Therapy Home O2 Progress Note O2 saturation at rest on room air: 95% (If resting saturation was 88% or less, enter NA for the next two values) O2 saturation with exertion on room air: 93%(NA if not evaluated) O2 saturation on O2 at LPM with exertion: % (NA if not evaluated) Patient meets criteria for home O2 Y/N = No Patient mobile at home Y/N = DME Notified yes * Oksana Bee, PT - 01/22/2024 2:03 PM EDT Images from the original note were not included. PHYSICAL THERAPY [facility]ly [facility] Initial Evaluation Name/MRN: Rolando Peters ([id number]) Evaluation Date: 01/22/2024 Date of : 1945 Admission Date: 01/19/2024 12:04 PM Age: 79 y.o. Room/Bed: T1-114/T1-114 A Discharge Recommendation: Home with assist PRN, Home with Home health PT Other: Recommend fww initially, per pt she can avail fww. Assessment IMPRESSION: Pt ambulated functional distance without and with fww. Reported weakness on both LE during gait without fww and felt secure with fww. Recommend pt use fww initially for household ambulation. Anticipate discharge to home with assist as needed. Recommend home care PT. Diagnosis: A-fib with RVR, heart failure Prognosis: fair Performance Deficits /Impairments: Decreased Functional Mobility, Decreased ADL status, Decreased Strength, Decreased Endurance, and Decreased Balance Decision Making: Low Complexity Subjective Pt sitting on chair, agree with PT treatment. RN cleared for PT. Pain: Pt denies any current pain. Past Medical History: Past Medical History: Diagnosis Date Arthritis Asthma Breast cancer (HCC) 1993 Right Breast(Mastectomy) Breast cancer (HCC) 2010 Left Breast(Simple Mastectomy, SLND) Chronic kidney disease Diabetes (HCC) GERD (gastroesophageal reflux disease) High blood pressure Occlusion and stenosis of unspecified carotid artery Pure hypercholesterolemia Syncope and collapse 08/29/2022 Past Surgical History: Past Surgical History: Procedure Laterality Date CAROTID ENDARTERECTOMY Right 2008 CATARACT EXTRACTION Bilateral 2006 CHEST TUBE INSERTION Right 10/05/2023 ENDOBRONCHIAL ULTRASOUND EBUS (HISTORICAL) 10/05/2023 MASTECTOMY Left 2010 simple/reconstruction/gingivagrapht MASTECTOMY Right 1993 reconstruction (TRAM) TOTAL ABDOMINAL HYSTERECTOMY W/ BILATERAL SALPINGOOPHORECTOMY 1998 TUBAL LIGATION 1978 Admission Diagnosis: Patient Active Problem List Diagnosis Date Noted Atrial fibrillation with RVR ([facility]) 01/19/2024 Pneumothorax 10/05/2023 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 ([facility]) 05/07/2023 CKD stage G2/A3, 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/g 05/07/2023 Multiple pulmonary nodules 11/04/2022 Impingement syndrome of right shoulder 10/23/2022 Orthostatic hypotension 09/23/2022 Proteinuria 09/23/2022 Low back pain 09/01/2022 Spondylosis without myelopathy or radiculopathy, lumbosacral region 08/29/2022 Gout 02/09/2022 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 with 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 ([facility]) 02/09/2022 Sialoadenitis of submandibular gland 02/09/2022 Tendinitis of hip 02/09/2022 Obstructive sleep apnea syndrome 02/09/2022 Osteoporosis 02/09/2022 Disorder of bone 02/09/2022 Anxiety 02/09/2022 Vitamin D deficiency 02/09/2022 History of anesthesia problem 02/09/2022 Other nonspecific abnormal finding of lung field 09/29/2023 History of COVID-19 09/01/2022 Essential hypertension 05/14/2020 Bilateral carotid artery stenosis 05/14/2020 Dyslipidemia 03/08/2019 Diabetes (HCC) 11/17/2018 SOB (shortness of breath) 11/11/2017 Palpitations 11/11/2017 History of bilateral breast cancer 12/14/2015 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 Fall Risk: Mendez Fall Risk Score: 45 (High Risk) Precautions/Restrictions: Lines/Drains/Airways: 2 L/min NC, tele Family/Caregiver Present: none Overall Cognitive Status: WNL Overall Orientation Status: Oriented x4 Vision: not assessed this session Hearing: normal Social/Functional History Patient admitted from home. 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 Transfers Sit to stand: Supervision Stand to sit: Supervision Stand pivot: Supervision Ambulation Ambulation 1 Assistive device(s) used: none Assist level: SBA Distance (ft): 30 Quality of gait: uneven step length, slow santy, path deviations, instability through all phases Ambulation 2 Assistive device(s) used: front wheeled walker Assist level: Supervision Distance (ft): 150 Quality of gait: uneven step length, slow santy Balance: Posture: fair Sitting - Static: Independent Sitting - Dynamic: Independent Standing - Static: Modified Independent Standing - Dynamic: Supervision Stairs Stairs 1 Assistive device(s) used: none Assist level: Supervision # of steps: 4 Rails: right Additional factors: non-reciprocal going up, non-reciprocal going down Outcome Measures AM-PAC How much HELP from another person do you currently need Turning from your back to your side while in a flat bed without using bedrails?: None Moving from lying on your back to sitting on the side of a flat bed without using bedrails?: None Moving to and from a bed to a chair (including a wheelchair)?: None Standing up from a chair using your arms (wheelchair or bedside chair)?: None Walking in a hospital room?: None Stair climbing assessed?: Yes Climbing 3-5 steps with a railing?+: None AM-PAC Inpatient Mobility Raw Score : 24 AM-PAC Inpatient Mobility Raw Score (No Stairs) : 20 JH-HLM JH-HLM Score: Walked 25 ft or more (i.e. walked outside of room) Plan Pt would benefit from skilled acute PT services to address Strengthening, Balance Training, Functional Mobility Training, Endurance Training, Gait Training, and Stair Training. Frequency: 2x/week for 4 weeks Barriers: None Safety/Education Safety Safety Devices in place: call light within reach, left in chair, nurse notified, no alarms engaged upon entry, and 2 L/min NC Restraints: No Education Education Given To: patient Education Provided: PT Role, PT Goals, Plan of Care, and Energy Conservation Education Method: Verbal Barriers to Learning: None Education Outcome: Verbalized Understanding Goals Patient Stated Goal: To go home. Encounter Problems Encounter Problems (Active) Balance Patient will maintain dynamic standing balance for 3minutes with modified independence in order to demonstrate decreased risk of falling. Start: 01/22/24 Expected End: 02/19/24 Mobility Patient will ambulate 250 feet with modified independence and no assistive device in order to improve safety and independence with mobility. Start: 01/22/24 Expected End: 02/19/24 Patient will ascend and descend 6 stairs with one railing and modified independence in order to safely negotiate home. Start: 01/22/24 Expected End: 02/19/24 Transfers Patient will perform bed mobility with modified independence in order to improve independence and prepare for out of bed mobility. Start: 01/22/24 Expected End: 02/19/24 Patient will complete functional transfer with no assistive device with modified independence in order to prepare for ambulation. Start: 01/22/24 Expected End: 02/19/24 Therapy Time Individual Co-treatment Time In 1325 Time Out 1345 Minutes 20 Oksana Bee PT Patient's Physical Therapy Plan of Care supervision is transferred to a [facility] Therapy Services Physical Therapist. Goals and/or treatment plan was established in collaboration with patient/family/other representatives. * Bret Garcia MD - 01/22/2024 8:53 AM EDT [facility] [place] [facility] [place]Electrophysiology Progress Note HPI / Interval History: Overnight rates controlled at 60-70. Sinus with sinus arrythmia Hypetensive Patient reports she feels well. 1 L NC. Will have her walk today and see how she feels. Plan for ECHO, ambulation, and possible DC today following O2 titration Assessment/Plan HF NYHA Class [] I [] II [x] III [] IV New Onset HFrEF Likely Tachy-mediated in the Setting of Afib with RVR (Compensated) Now euvolemic on exam Unknown doxirubicin usage. Treated in and unable to retrieve records Plan: -carvedilol 25mg BID -losartan 100mg oral daily -errol 25mg oral daily -start amlodipine 5mg oral daily -continue apixaban 5mg oral BID -TTE today Newly Diagnosed Paroxsmal Atrial Fibrillation with RVR Plan: -amiodarone 400mg oral BID for load. Outpatient followup -beta luna as above Left Sialadenitis Plan: -conservative treatment. Recommend sour sucking candies Medications: amiodarone, 400 mg, Oral, BID amLODIPine, 5 mg, Oral, Daily apixaban, 5 mg, Oral, BID carvedilol, 25 mg, Oral, BID WC insulin lispro, 0-6 Units, SubCUTAneous, TID WC And insulin lispro, 0-6 Units, SubCUTAneous, Nightly losartan, 100 mg, Oral, Daily pantoprazole, 40 mg, Oral, q AM rosuvastatin, 10 mg, Oral, Nightly sertraline, 25 mg, Oral, Daily spironolactone, 25 mg, Oral, Daily tiotropium, 2 puff, Inhalation, Daily Infusion Medications: Physical Examination: Vitals: 01/22/24 0500 01/22/24 0600 01/22/24 0700 01/22/24 0725 BP: 153/53 156/57 158/65 BP Location: Patient Position: Pulse: 70 72 69 Resp: 25 16 15 Temp: 36.6 C (97.9 F) TempSrc: SpO2: 96% 94% 96% Weight: Height: Intake/Output Summary (Last 24 hours) at 01/22/2024 0853 Last data filed at 01/22/2024 0550 Gross per 24 hour Intake 100 ml Output 1600 ml Net -1500 ml Wt Readings from Last 1 Encounters: 01/22/24 156 lb 1.4 oz (70.8 kg) Physical Exam Constitutional: NAD Psychiatric: Alert. Medical insight intact Neck: No JVD. Enlarged left submandibular lymph node Respiratory: Lungs are clear Heart: tachy, irregular ; Nl S1 and S2, no murmur, norub, gallop Abdomen: NABS; soft, non-tender, non-distended Extremities: no LE edema Skin: Warm to touch and well perfused Laboratory Tests: Recent Labs 01/19/24 1241 01/20/24 0059 01/21/24 0538 01/22/24 0006 NA 130* 131* 133* 129* K 4.9 4.5 3.8 4.0 CL 97* 99 102 102 CO2 19* 22 24 24 BUN 28* 25* 19* 17 CREATININE 0.95 0.90 0.85 0.87 Recent Labs 01/19/24 1241 01/19/24 1513 01/20/24 0059 01/21/24 0538 01/21/24 1438 01/22/24 0006 WBC 10.1 -- 12.8* 9.3 8.1 8.6 HGB 11.0* 11.8 11.3* 9.8* 9.0* 9.6* HCT 33.8* -- 34.0* 29.5* 26.7* 29.8* MCV 93.6 -- 92.1 93.9 94.3 95.2 PLT 226 -- 224 219 188 209 Recent Labs 01/19/24 1241 01/19/24 1541 TROPONINI 0.021 0.026 Recent Labs 01/19/24 1241 BNP 6,800* No results for input(s): TRIG, HDL, LDLCALC, CHOL in the last 72 hours. No results found for: LDLCHOLESTER Lab Results Component Value Date TSH 1.13 12/03/2022 EF BP Date Value Ref Range Status 09/18/2022 70 55 - 100 % Final 09/18/22 TRANSTHORACIC ECHOCARDIOGRAM (TTE) COMPLETE (CONTRAST/BUBBLE/3D PRN) 09/18/2022 3:25 PM (Final) Interpretation Summary Left Ventricle: Left ventricle is smaller than normal. Normal wall thickness. Ventricular mass is less than normal. Normal left ventricular systolic function. The EF by visual approximation is 65%. EF by 2D Simpsons Biplane is 70%. Normal wall motion. Diastolic dysfunction present with normal LVEF.E/A ratio is 1.17. Average E/e' ratio is 26.04. Right Ventricle: Right ventricle size is normal. Normal systolic function. TAPSE is normal. Pulmonary Arteries: Unable to assess RVSP due to limited technical data. No significant valvular abnormalities. Signed by: Manjit Ramirez MD on 09/18/2022 3:25 PM Other reports reviewed: Cardiac Tests: ECG: afib rvr Tracing reviewed. Telemetry findings reviewed: afib RVR rates 110-130 and sinus tachycardia EF BP Date Value Ref Range Status 09/18/2022 70 55 - 100 % Final Bret Garcia MD Date Of Service 01/22/2024 Associated attestation - Manjit Ramirez MD - 01/22/2024 11:30 AM EDT I, Dr. Manjit Ramirez, saw and evaluated the patient on 01/22/24. I personally obtained the castillo and critical portions of the history and physical exam. I reviewed the labs, imaging studies, and electronic medical record. I reviewed the Floriculturist's documentation, and discussed the patient with the Floriculturist. I agree with the Floriculturist's medical decision making and have edited the note to reflect my clinical findings and my assessment and plan. In summary, Ms. Peters 79-year-old woman with a history of breast cancer, CKD stage II, tobacco abuse, COPD, hypertension, who presented to [facility] after she went to her PCPs office for generalized weakness and SOB. She was sent to the ED, and was found to be in shock with a lactate of nearly 3 with a suggestion of cardiogenic shock, with atrial fibrillation with RVR, and a bedside TTE suggesting reduced ejection fraction. A CTA of the chest showed no pulmonary embolism, but did show GGO's consistent with pulmonary edema and small incidental lung nodules. Yesterday, we were able to get her off of study nitroprusside and she is on good medical therapy for blood pressure. She underwent a transesophageal echocardiogram and cardioversion. We started her on amiodarone, and she is spending most of her time in sinus rhythm. Today we will have her undergo a transthoracic echocardiogram to further inform any additional therapy (including interrogating the mitral valve) and discharge later today if she is feeling well. Manjit Ramirez MD, PhD Advanced Heart Failure Cardiology [facility]. Heart [facility] [place] 11:30 AM 01/22/24 * Bret Garcia MD - 01/21/2024 6:55 AM EDT [facility] Cardiology /Electrophysiology Progress Note HPI / Interval History: Overnight patient continued on nitroprusside drip (2.25) Appears to be transitioning between sinus tachycardia and atrial fibrillation rates of 110-120 Patient reports she is feeling significantly better. O2 requirement decreasing. Pending ECHO and CTneck today. Assessment/Plan HF NYHA Class [] I [] II [x] III [] IV New Onset HFrEF Likely Tachy-mediated in the Setting of Afib with RVR Now euvolemic on exam Unknown doxirubicin usage. Treated in and unable to retrieve records Plan: -titrate nitroprusside ggt off -increased carvedilol 12.5mg BID -increased losartan 50mg oral daily -continue apixaban 5mg oral BID Newly Diagnosed Paroxsmal Atrial Fibrillation with RVR Plan: -Start with amiodarone 400mg oral BID for load -beta luna as above Enlarged and Tender Left Submandibular Lymph Node Chronic? Plan: -CT neck with contrast to assess Medications: apixaban, 5 mg, Oral, BID carvedilol, 6.25 mg, Oral, BID WC citalopram, 20 mg, Oral, Daily losartan, 50 mg, Oral, Daily pantoprazole, 40 mg, Oral, q AM rosuvastatin, 10 mg, Oral, Nightly tiotropium, 2 puff, Inhalation, Daily Infusion Medications: nitroprusside, 0.3-3 mcg/kg/min, Last Rate: 2.5 mcg/kg/min (01/21/24614) propofol, 400 mg Physical Examination: Vitals: 01/21/24 0530 01/21/24 0545 01/21/24 0600 01/21/24 0615 BP: (!) 118/49 156/52 132/56 BP Location: Patient Position: Pulse: 118 110 117 109 Resp: Temp: TempSrc: SpO2: 98% 98% 100% 100% Weight: Height: Intake/Output Summary (Last 24 hours) at 01/21/2024 0655 Last data filed at 01/21/2024 0545 Gross per 24 hour Intake 240 ml Output 1600 ml Net -1360 ml Wt Readings from Last 1 Encounters: 01/21/24 156 lb 12 oz (71.1 kg) Physical Exam Constitutional: NAD Psychiatric: Alert. Medical insight intact Neck: No JVD. Enlarged left submandibular lymph node Respiratory: Lungs are clear Heart: tachy, irregular ; Nl S1 and S2, no murmur, norub, gallop Abdomen: NABS; soft, non-tender, non-distended Extremities: no LE edema Skin: Warm to touch and well perfused Laboratory Tests: Recent Labs 01/19/24 1241 01/20/24 0059 01/21/24 0538 NA 130* 131* 133* K 4.9 4.5 3.8 CL 97* 99 102 CO2 19* 22 24 BUN 28* 25* 19* CREATININE 0.95 0.90 0.85 Recent Labs 01/19/24 1241 01/19/24 1513 01/20/24 0059 01/21/24 0538 WBC 10.1 -- 12.8* 9.3 HGB 11.0* 11.8 11.3* 9.8* HCT 33.8* -- 34.0* 29.5* MCV 93.6 -- 92.1 93.9 PLT 226 -- 224 219 Recent Labs 01/19/24 1241 01/19/24 1541 TROPONINI 0.021 0.026 Recent Labs 01/19/24 1241 BNP 6,800* No results for input(s): TRIG, HDL, LDLCALC, CHOL in the last 72 hours. No results found for: LDLCHOLESTER Lab Results Component Value Date TSH 1.13 12/03/2022 EF BP Date Value Ref Range Status 09/18/2022 70 55 - 100 % Final 09/18/22 TRANSTHORACIC ECHOCARDIOGRAM (TTE) COMPLETE (CONTRAST/BUBBLE/3D PRN) 09/18/2022 3:25 PM (Final) Interpretation Summary Left Ventricle: Left ventricle is smaller than normal. Normal wall thickness. Ventricular mass is less than normal. Normal left ventricular systolic function. The EF by visual approximation is 65%. EF by 2D Simpsons Biplane is 70%. Normal wall motion. Diastolic dysfunction present with normal LVEF.E/A ratio is 1.17. Average E/e' ratio is 26.04. Right Ventricle: Right ventricle size is normal. Normal systolic function. TAPSE is normal. Pulmonary Arteries: Unable to assess RVSP due to limited technical data. No significant valvular abnormalities. Signed by: Manjit Ramirez MD on 09/18/2022 3:25 PM Other reports reviewed: Cardiac Tests: ECG: afib rvr Tracing reviewed. Telemetry findings reviewed: afib RVR rates 110-130 and sinus tachycardia EF BP Date Value Ref Range Status 09/18/2022 70 55 - 100 % Final Bret Garcia MD Date Of Service 01/21/2024 Associated attestation - Manjit Ramirez MD - 01/21/2024 3:01 PM EDT I, Dr. Manjit Ramirez, saw and evaluated the patient on 01/21/24. I personally obtained the castillo and critical portions of the history and physical exam. I reviewed the labs, imaging studies, and electronic medical record. I reviewed the Floriculturist's documentation, and discussed the patient with the Floriculturist. I agree with the Floriculturist's medical decision making and have edited the note to reflect my clinical findings and my assessment and plan. In summary, Ms. Peters 79-year-old woman with a history of breast cancer, CKD stage II, tobacco abuse, COPD, hypertension, who presented to [facility] after she went to her PCPs office for generalized weakness and SOB. She was sent to the ED, and was found to be in shock with a lactate of nearly 3 with a suggestion of cardiogenic shock, with atrial fibrillation with RVR, and a bedside TTE suggesting reduced ejection fraction. A CTA of the chest showed no pulmonary embolism, but did show GGO's consistent with pulmonary edema and small incidental lung nodules. She did not have acute kidney injury, butdid have acute liver injury with mildly elevated transaminases and bilirubin. She was placed on sodium nitroprusside last night, and lactate improved. Yesterday she underwent a transesophageal echocardiogram that already showed improvement of LV function with ejection fraction 55%, normal RV, moderate to severe MR, and she underwent a successful cardioversion. Laboratory testing is unremarkable this morning. Total urine output yesterday was 1600 cc. Today we will start her on amiodarone, and down titrate her sodium nitroprusside as we increased oral afterload reduction and beta-luna. She appears euvolemic on exam. Will also get a CT of the neck to evaluate this mass under her left mandible. Finally, we will get a transthoracic echocardiogram to further assess her LV and RV function. Manjit Ramirez MD, PhD Advanced Heart Failure Cardiology [facility]. Heart and Vascular [place] 3:01 PM 01/21/24 * Bret Garcia MD - 01/20/2024 11:02 AM EDT [facility] Vascular [facility] Cardiology /Electrophysiology Progress Note HPI / Interval History: Overnight patient started on nitroprusside ggt with adqueate urine output. Not accurate. Patient reports that she is feeling signficantly better than yesterday. Breathing is much easier. Plan for DMITRY DCCV today and will require RHC pending ECHO. Assessment/Plan HF NYHA Class [] I [] II [x] III [] IV New Onset HFrEF Likely Tachy-mediated in the Setting of Afib with RVR Now euvolemic on exam S/p Digoxin load Plan: -DMITRY cardioversion today -continue nipride ggt with titration to MAP and autodiuresis -will plan for RHC +/- LHC pending ECHO -will cautiously start beta luna pending ECHO -will investigate chemotherapeutic regiment Newly Diagnosed Persistent Atrial Fibrillation with RVR Plan: -Will attempt DCCV today following DMITRY -beta luna as above Enlarged and Tender Left Submandibular Lymph Node Chronic? Plan: -CT neck tomorrow with contrast to assess. No documentation of prior. Not on Pet CT scan Medications: apixaban, 5 mg, Oral, BID citalopram, 20 mg, Oral, Daily pantoprazole, 40 mg, Oral, q AM rosuvastatin, 10 mg, Oral, Nightly tiotropium, 2 puff, Inhalation, Daily Infusion Medications: nitroprusside, 0.3-3 mcg/kg/min, Last Rate: 2.75 mcg/kg/min (01/20/24 0747) Physical Examination: Vitals: 01/20/24 1000 01/20/24 1015 01/20/24 1030 01/20/24 1045 BP: 122/51 135/62 122/60 115/54 BP Location: Patient Position: Pulse: 99 108 102 102 Resp: 18 13 19 20 Temp: TempSrc: SpO2: 98% 99% 100% 99% Weight: Height: Intake/Output Summary (Last 24 hours) at 01/20/2024 1103 Last data filed at 01/20/2024 0644 Gross per 24 hour Intake 166.67 ml Output 400 ml Net -233.33 ml Wt Readings from Last 1 Encounters: 01/19/24 146 lb 2.6 oz (66.3 kg) Physical Exam Constitutional: NAD Psychiatric: Alert. Medical insight intact Neck: No JVD. Enlarged left submandibular lymph node Respiratory: Lungs are clear Heart: tachy, irregular ; Nl S1 and S2, no murmur, norub, gallop Abdomen: NABS; soft, non-tender, non-distended Extremities: no LE edema Skin: Warm to touch and well perfused Laboratory Tests: Recent Labs 01/19/24 1241 01/20/24 0059 NA 130* 131* K 4.9 4.5 CL 97* 99 CO2 19* 22 BUN 28* 25* CREATININE 0.95 0.90 Recent Labs 01/19/24 1241 01/19/24 1513 01/20/24 0059 WBC 10.1 -- 12.8* HGB 11.0* 11.8 11.3* HCT 33.8* -- 34.0* MCV 93.6 -- 92.1 PLT 226 -- 224 Recent Labs 01/19/24 1241 01/19/24 1541 TROPONINI 0.021 0.026 Recent Labs 01/19/24 1241 BNP 6,800* No results for input(s): TRIG, HDL, LDLCALC, CHOL in the last 72 hours. No results found for: LDLCHOLESTER Lab Results Component Value Date TSH 1.13 12/03/2022 EF BP Date Value Ref Range Status 09/18/2022 70 55 - 100 % Final 09/18/22 TRANSTHORACIC ECHOCARDIOGRAM (TTE) COMPLETE (CONTRAST/BUBBLE/3D PRN) 09/18/2022 3:25 PM (Final) Interpretation Summary Left Ventricle: Left ventricle is smaller than normal. Normal wall thickness. Ventricular mass is less than normal. Normal left ventricular systolic function. The EF by visual approximation is 65%. EF by 2D Simpsons Biplane is 70%. Normal wall motion. Diastolic dysfunction present with normal LVEF.E/A ratio is 1.17. Average E/e' ratio is 26.04. Right Ventricle: Right ventricle size is normal. Normal systolic function. TAPSE is normal. Pulmonary Arteries: Unable to assess RVSP due to limited technical data. No significant valvular abnormalities. Signed by: Manjit Ramirez MD on 09/18/2022 3:25 PM Other reports reviewed: Cardiac Tests: ECG: afib rvr Tracing reviewed. Telemetry findings reviewed: afib RVR rates 110-130 EF BP Date Value Ref Range Status 09/18/2022 70 55 - 100 % Final Bret Garcia MD Date Of Service 01/20/2024 Associated attestation - Manjit Ramirez MD - 01/20/2024 12:13 PM EDT I, Dr. Manjit Ramirez, saw and evaluated the patient on 01/20/24. I personally obtained the castillo and critical portions of the history and physical exam. I reviewed the labs, imaging studies, and electronic medical record. I reviewed the Floriculturist's documentation, and discussed the patient with the Floriculturist. I agree with the Floriculturist's medical decision making and have edited the note to reflect my clinical findings and my assessment and plan. In summary, Ms. Peters 79-year-old woman with a history of breast cancer, tobacco abuse, COPD, hypertension, who presented to [facility] after she went to her PCPs office for generalized weakness and shortness of breath. She was sent to the ED, and was found to be in shock with a lactate of nearly 3 with a suggestion of cardiogenic shock, with atrial fibrillation with RVR, and a bedside echocardiogram suggesting reduced ejection fraction. A CTA of the chest showed no pulmonary embolism, but did show GGO's consistent with pulmonary edema and small incidental lung nodules. She did not have acute kidney injury, but did have acute liver injury with mildly elevated transaminases and bili denton. She was placed on sodium nitroprusside last night, and lactate improved. On physical exam this morning, she appears euvolemic, but on sodium nitroprusside. 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 We will investigate what chemotherapy she received for her breast cancer, and make sure this was not doxorubicin which would change the differential. Today we will have her undergo DMITRY cardioversion, have her undergo formal echocardiogram, and will have her undergo a right heart catheterization. After the right heart cath, which should be on [facility] [place], we will down titrate nitroprusside and replace this with oral medications. Finally, we will decide on antiarrhythmic therapy after cardiogenic shock is resolved. A total of 40 minutes were spent with the patient providing critical care as detailed. This patientrequires critical care because of the imminent threat of deterioration and/or secondary to impairment of the cardiovascular system. Manjit Ramirez MD, PhD Advanced Heart Failure Cardiology [facility]. Heart and Vascular [place] 12:13 PM 01/20/24 documented in this [facility]06-07-2024 Hospital course Narrative* Steven Stewart DO - 01/22/2024 3:30 PM EDT Images from the original note were not included. [facility] Heart & V[facility] CCU DISCHARGE SUMMARY Patient Name: Rolando Peters : 1945 Admit Date: 01/19/2024 Discharge Date: 01/22/24 PCP: CELIA AL DO Visit Status: Admission Code Status: Full Code Discharge Diagnoses: New Onset HFrEF Likely Tachy-mediated in the Setting of Afib with RVR (Compensated) Newly Diagnosed Paroxsmal Atrial Fibrillation with RVR Left Sialadenitis Hospital Course: Rolando Peters is a 79 y.o. female that presented to [facility] on 01/19/2024 and was admitted for cardiogenicshock. She has a history of breast cancer, CKD stage II, tobacco abuse, COPD, and hypertension, whopresented to [facility] after being seen in her PCPs office for generalized weakness and SOB. She was sentto the ED and was found to be in shock with elevated lactate, concerning for cardiogenic shock. Shewas also found to be in atrial fibrillation with RVR and a bedside TTE suggested reduced ejection fraction. A CTA of the chest showed no pulmonary embolism, but did show GGO's consistent with pulmonary edema and small incidental lung nodules. Patient underwent DMITRY with cardioversion and has primarily remained in sinus rhythm with occasional bouts of A-fib (compensated). She was given Amio load and started on Eliquis. TTE obtained and showed LVEF of 48% with moderate MR. The patient was evaluated by PT/OT who recommended home with home PT. The patient and daughter Ene both agreed with the patient being discharged to home. Procedures Performed: Echocardiogram (Type: TTE Date: 01/20/24): Left Ventricle: Left ventricle size is normal. Normal wall thickness. Normal left ventricular systolic function. EF by visual approximation is 48%. Global longitudinal strain is reduced with a value of -14.7%. Normal wall motion. Grade III diastolic dysfunction with increased LAP. Right Ventricle: Right ventricle size is normal. Low normal systolic function. RV Peak S' is 8 cm/s. Aortic Valve: Trileaflet. Cusp sclerosis. Mild (1+) regurgitation. Aortic slcerosis. AV mean gradient is 7 mmHg. AV peak gradient is 12 mmHg. AV peak velocity is 1.7 m/s. Mitral Valve: Moderately thickened leaflets. Moderately calcified leaflets. Mild annular calcification. Moderate (2+) regurgitation with a posterior directed jet. No stenosis noted. Tricuspid Valve: Valve structure is normal. Mild (1+) regurgitation. Mild to moderately elevated RVSP. RVSP is 46 mmHg. Left Atrium: Left atrium is moderately dilated. Right Atrium: Right atrium size is normal. Aorta: Normal sized sinuses of Valsalva and ascending aorta. Pericardium: No pericardial effusion. IVC/SVC: IVC diameter is dilated and decreases greater than 50% during inspiration; therefore the estimated right atrial pressure is intermediate (~8 mmHg). Discharge Medications: Current Outpatient Medications Medication Instructions albuterol (Ventolin HFA) 108 (90 Base) MCG/ACT inhaler 2 puffs, Inhalation, Every 4 hours PRN amiodarone (Pacerone) 200 MG tablet Take 2 tablets (400 mg) by mouth 2 times daily for 11 days, THEN 1 tablet (200 mg) daily. Take 2 tablets twice daily starting 01/23/24 through 02/01/24. Starting 02/02/24, take 1 tablet once daily.. amLODIPine (NORVASC) 5 mg, Oral, Daily apixaban (ELIQUIS) 5 mg, Oral, 2 times daily aspirin 81 MG chewable tablet Daily atovaquone (MEPRON) 1,500 mg, Oral, Daily carvedilol (COREG) 25 mg, Oral, 2 times daily with meals cholecalciferol (VITAMIN D-3) 4,000 Units, Oral, Daily citalopram (CELEXA) 20 mg, Oral, Daily colchicine 0.6 mg, Oral, Daily ezetimibe (ZETIA) 10 mg, Oral, Daily Finerenone (Kerendia) 10 MG tablet 1 tablet, Oral, Daily fluticasone (Cutivate) 0.05 % cream Topical, Daily PRN fluticasone (Flonase) 50 MCG/ACT nasal spray 1 spray, Each Nostril, Daily, Shake gently. Before first use, prime pump. After use, clean tip and replace cap. Jentadueto XR 2.5-1000 MG per 24 hr tablet take 2 tablets by mouth once daily lansoprazole (Prevacid) [address] capsule 1 capsule, Daily losartan (Cozaar) 100 MG tablet losartan 100 mg tablet metoprolol tartrate (Lopressor) 25 MG tablet metoprolol tartrate 25 mg tablet predniSONE (DELTASONE) 20 mg, Oral, Daily, Take 2 tablets (20mg) daily x 4 weeks, then 1 tablet (10mg) daily x 4 weeks rosuvastatin (Crestor) 10 MG tablet Daily [START ON 01/23/2024] sertraline (ZOLOFT) 25 mg, Oral, Daily tiotropium (Spiriva Respimat) 2.5 MCG/ACT inhaler 2 puffs, Inhalation, Daily Vascepa 1 g capsule TAKE 2 CAPSULES BY MOUTH 2 TIMES DAILY Notable Medication Changes & Reasoning: Coreg for GDMT for HF with mildly reduced EF Amiodarone for A-fib Eliquis given recent cardioversion and A-fib Celexa switched to Zoloft due to medication change above BMI: Body mass index is 24.43 kg/m . Diet: Adult diet Regular; Low Sodium (2 gm) Activity: Please refer to home going instructions. Disposition: Home Recommended Follow Up Appointment(s): Follow up with [facility] on 02/01/24 Follow up with Pulmonology on 03/11/24 PCP 2-4 weeks Associated attestation - Manjit Ramirez MD - 01/22/2024 3:53 PM EDT I personally saw and evaluated this patient prior to discharge. I examined the patient, reviewed the meds and the follow-up information. I was personally involved in, and initiated the medical therapy to be used at discharge and the follow-up to be done. Manjit Ramirez MD, PhD Advanced Heart Failure Cardiology [facility]. Heart and Vascular [place] 3:53 PM 01/22/24 documented in this [facility]06-07-2024 Miscellaneous Notes* Care Coordination - Unknown Case Management - 01/22/2024 2:23 PM EDT Patient Choice Patient Name: ROLANDO PETERS Date of : 1945 All Providers Sent Referral Name: [facility] Phone: [phone] Address: [address] [place] [address] * Home Care - Jill Mancini RN - 01/22/2024 2:18 PM EDT Start PACC Note Home Health Referral Educated patient on Home Care and services available. Patient offered choice of available HHC and agreeable to SN/PT services with [facility] - Home Care. Care Types: None Isolation Precautions: No active isolations Social Determinates of Health: Tobacco Use: Medium Risk (01/19/2024) Patient History Smoking Tobacco Use: Former Smokeless Tobacco Use: Never Passive Exposure: Not on file Social History Substance and Sexual Activity Alcohol Use Yes Alcohol/week: 0.0 - 14.0 standard drinks of alcohol Comment: occ Social History Substance and Sexual Activity Drug Use No Does the patient have any financial resource strain? No Does the patient have any food insecurities? No Does the patient have any housing instabilities? No If any of the above is noted as yes - consider a CRIMINAL JUSTICE LAWYER evaluation once the patient returns home. START PATIENT REGISTRATION INFORMATION Order Information Order Signing Physician: Manjit Ramirez MD Service Ordered RN ?: Yes Service Ordered PT ?: Yes Service Ordered OT ?: No Service Ordered ST ?: No Service Ordered CRIMINAL JUSTICE LAWYER?:No Service Ordered BOX BENDER?: No Following Physician: CELIA AL DO Following Physician Overseeing Physician: CELIA AL DO (Required for Residents only) Agreeable to Follow? Yes Date/Time of Call 01/22/24 2:18 PM, Spoke with: office staff Care Coordination Same Day SOC?: No Primary Care Physician: CELIA AL DO Primary Care Physician Primary Care Physician Address: [address] [place] [address], [place] [address] / [facility]* Visit Instructions: N/A Service Discharge Location Type: Home with Home Health Care Service Facility Name: N/A Service Floor Facility: N/A Service Room No: N/A Demographics Patient Last Name: Lorraine Patient First Name: Rolando Language/Communication Barrier: no Service Address: [address] [place] [address] Service City: [place] Service ST: [place] Service ZIP: [address] Service (home) Other phone numbers: Telephone Information: Emergency Contact: Extended Emergency Contact Information Primary Emergency Contact: Jin Peters Address: [address] [place] [address] [facility] Mobile Relation: Spouse Secondary Emergency Contact: Ene Negrete Address: [address] [place], [place] [id number] [place] [address] Mobile Relation: Daughter Admission Information Admit Date: 01/19/2024 Patient status at discharge: Inpatient Admitting Diagnosis: Atrial fibrillation with RVR (HCC) [I48.91] Acute heart failure, unspecified heart failure type (HCC) [I50.9] Caregiver Information Caregiver First Name: na Caregiver Last Name: na Caregiver Relationship to Patient na Caregiver Phone Number: na Caregiver Notes: N/A [employer] List No END PATIENT REGISTRATION INFORMATION Pt Home Health goal go home COVID Status 1. Do you have any upper respiratory symptoms (cough, SOB, Fever)? No 2. Have you been exposed to anyone with COVID-19 Virus? No Answer only if pending or positive for COVID-19? 1. Agreeable to wear PPE at each visit? No 2. Is the hospital supplying them with PPE upon Discharge? No Start PACC Summary General Report/ Additional Comments Return home with SN/PT services Discharge Date: pending Referral Source-PACC: (Hospital/Unit): [facility] / -114/ A End PACC Note * Care Coordination - Magaly Adames RN - 01/22/2024 2:15 PM EDT Updated by primary team, PT recommending home with [facility]. Spoke with [facility], they are currently setting up home care for patient. * Care Plan - Magalis Sibley RN - 01/22/2024 11:55 AM EDT Problem: Safety - Adult Goal: Free from fall injury Outcome: Progressing Flowsheets (Taken 01/22/2024 1155) Free from fall injury: Instruct family/caregiver on patient safety Problem: Discharge Planning Goal: Discharge to home or other facility with appropriate resources Outcome: Progressing Flowsheets (Taken 01/22/2024 1155) Discharge to home or other facility with appropriate resources: Identify discharge learning needs (meds, wound care, etc) Identify barriers to discharge with patient and caregiver Problem: Chronic Conditions and Co-morbidities Goal: Patient's chronic conditions and co-morbidity symptoms are monitored and maintained or improved Outcome: Progressing Flowsheets Taken 01/22/2024 1155 Care Plan - Patient's Chronic Conditions and Co-Morbidity Symptoms are Monitored and Maintained or Improved: Monitor and assess patient's chronic conditions and comorbid symptoms for stability, deterioration, or improvement Taken 01/22/2024 0725 Care Plan - Patient's Chronic Conditions and Co-Morbidity Symptoms are Monitored and Maintained or Improved: Monitor and assess patient's chronic conditions and comorbid symptoms for stability, deterioration, or improvement * Care Plan - Magalis Sibley RN - 01/21/2024 9:47 AM EDT Problem: Safety - Adult Goal: Free from fall injury Outcome: Progressing Flowsheets (Taken 01/21/2024 0947) Free from fall injury: Instruct family/caregiver on patient safety Problem: Discharge Planning Goal: Discharge to home or other facility with appropriate resources Outcome: Progressing Flowsheets (Taken 01/21/2024 0947) Discharge to home or other facility with appropriate resources: Identify discharge learning needs (meds, wound care, etc) Identify barriers to discharge with patient and caregiver Problem: Chronic Conditions and Co-morbidities Goal: Patient's chronic conditions and co-morbidity symptoms are monitored and maintained or improved Outcome: Progressing Flowsheets (Taken 01/21/2024 0947) Care Plan - Patient's Chronic Conditions and Co-Morbidity Symptoms are Monitored and Maintained or Improved: Monitor and assess patient's chronic conditions and comorbid symptoms for stability, deterioration, or improvement * Sedation Documentation - Shelley Munoz MD - 01/20/2024 4:28 PM EDT Images from the original note were not included. Rolando Peters : 1945(79 y.o.) Date: January 20, 2024 Conscious Sedation Procedure Note Sedation Goal: deep Consent: The indications, risks, benefits, alternatives to the procedure were explained to the patient/surrogate decision maker and their questions answered. Consent was obtained to proceed with the procedure. Time Out: Completed immediately prior to the start of the procedure which included verification of the correct patient, correct site and agreement on the procedure to be done. Procedure: DMITRY and DCCV Practitioner: Dr. Hughes Indication: Atrial fibrillation/flutter with RVR Allergies: Allergies Allergen Reactions Isosulfan Blue Anaphylaxis Methylene Blue Sulfa Antibiotics Rash NPO for 8 hrs Significant co-morbidities: cardiac disease Pre-Sedation Assessment Pre-Sedation Vital Signs: Vital Signs: Heart Rate- 106, Respirations-22 , Blood Pressure-129/48, on nipride , Pulse Ox-100 % Pre-Sedation Exam: Assessment: I have reviewed the patient's history and review of systems. Pulmonary: no distress Cardiovascular: irregular rhythm ENT: dentition not prohibitive and mild edema L cheek/mandible area secondary to enlarged lymph node Mallampati: Mallampati Class II - (soft palate, fauces & uvula are visible) ASA Classification: Class 3 - A patient with severe systemic disease that limits activity but is not incapacitating History of Anesthesia Complications: none Immediate Pre-Sedation Assessment There have been no changes in the patient's status since the initial assessment. Intra-Sedation Assessment Monitoring and Safety: The patient was placed on a physical therapist center manager and vital signs, pulse oximetry, and level of consciousness were continuously evaluated throughout the procedure. The patient was closely monitored until recovery from the medications was complete and the patient had returned to baseline status. Respiratory therapy was on standby at all times during the procedure. Medications Used: 210 mg Propofol Post-Sedation Assessment Post-Sedation Vital Signs: Vital Signs: Heart Rate- 114, sinus tach, Respirations-20 , Blood Pressure- 128/82 , Pulse Ox-100 % Post-Sedation Exam: Pulmonary: no distress Cardiovascular: mild tachycardia Start time: 1445 Stop time: 1528 Complications: none apparent Sedation Provider: I personally performed the sedation documented as signed by this procedure note. * Care Coordination - Magaly Adames RN - 01/20/2024 2:31 PM EDT Care Managment Initial Assessment Date: 01/20/2024 Patient Name: Rolando Peters : 1945 Patient Information Source of Information: Patient Cognition/Language: WFL - Within Functional Limits Permission given to speak with patient customer support representative/caregiver as indicated: Confirmation of Payer with patient/family: Yes Payer Name: [employer] Medicare [place]: No Confirmation of Primary Care Physician: Confirmed PCP Name: Dr. Al Seen in last 2 years?: Yes Primary Caregiver: Self If assistance needed, confirmed caregiver ready, willing and able to care for patient at discharge: Confirmed with: Living Arrangements Current Residence: House Number of Floors 3 Number of Entry Steps: 2 Bed/Bath Levels: Separate floors (Split level, 5 stairs between levels) Facility: Facility Name: Plan to Return: Lives with: Spouse/significant other, Children Support Systems: Spouse/significant other, Children, Family members Activities of Daily Living Ambulation: Independent Bathing/Dressing: Independent Elimination/Continence/Toileting: Independent Feeding: Independent Who Assists with Activities of Daily Living: Instrumental Activities of Daily Living Prescription Coverage: Yes Pharmacy Used: [facility] in [place] Medication Management: Independent Transportation/Shopping: Independent Transportation Mode: Car Needs Assistance with Transportation at Discharge: No Meal Preparation: Independent Laundry/Cleaning: Independent Finances/Bill Paying: Independent Communication: Independent Types of Care Services/Equipment Utilized Care Services: Dialysis Type: Durable Medical Equipment: Patient's Goal/Discharge Plan Patient expects to be discharged to: home Discharge Planning Actions: No needs identified Patient's Choice Rights and [employer] and Collaborative Relationships Disclosed as Indicated for Post-Acute Care: Interdisciplinary Team Engagement: Social Work Referral for: Additional Information: Patient admitted to [facility] ICU with new onset heart failure likely tachycardia mediated. Spoke with patient at bedside, introduced self and role. Patient from home with and son, isindependent, spouse has DME, has PCP and prescription coverage, will have a ride home and anticipate no discharge needs. Magaly Adames RN documented in this encounterSSt. John of God [id number] Note* Care Coordination - Unknown Case Management - 01/22/2024 2:23 PM EDT Patient Choice Patient Name: ROLANDO PETERS Date of : 1945 All Providers Sent Referral Name: [facility] Phone: [phone] Address: [address] [place] [address] [id number] [facility]* Care Coordination - Unknown Case Management - 01/22/2024 2:23 PM EDT Patient Choice Patient Name: ROLANDO PETERS Date of : 1945 All Providers Sent Referral Name: [facility] [place] Phone: [phone] Address: [address] [place] [address] [facility] [id number] Note* Home Care - Jill Mancini RN - 01/22/2024 2:18 PM EDT Start PACC Note Home Health Referral Educated patient on Home Care and services available. Patient offered choice of available HHC and agreeable to SN/PT services with [facility] - Home Care. Care Types: None Isolation Precautions: No active isolations Social Determinates of Health: Tobacco Use: Medium Risk (01/19/2024) Patient History Smoking Tobacco Use: Former Smokeless Tobacco Use: Never Passive Exposure: Not on file Social History Substance and Sexual Activity Alcohol Use Yes Alcohol/week: 0.0 - 14.0 standard drinks of alcohol Comment: occ Social History Substance and Sexual Activity Drug Use No Does the patient have any financial resource strain? No Does the patient have any food insecurities? No Does the patient have any housing instabilities? No If any of the above is noted as yes - consider a CRIMINAL JUSTICE LAWYER evaluation once the patient returns home. START PATIENT REGISTRATION INFORMATION Order Information Order Signing Physician: Manjit Ramirez MD Service Ordered RN ?: Yes Service Ordered PT ?: Yes Service Ordered OT ?: No Service Ordered ST ?: No Service Ordered CRIMINAL JUSTICE LAWYER?:No Service Ordered BOX BENDER?: No Following Physician: CELIA AL DO Following Physician Overseeing Physician: CELIA AL, (Required for Residents only) Agreeable to Follow? Yes Date/Time of Call 01/22/24 2:18 PM, Spoke with: office staff Care Coordination Same Day SOC?: No Primary Care Physician: CELIA AL DO Primary Care Physician Primary Care Physician Address: [address] [place] [address], [facility] [address] / [place]* Visit Instructions: N/A Service Discharge Location Type: Home with Home Health Care Service Facility Name: N/A Service Floor Facility: N/A Service Room No: N/A Demographics Patient Last Name: Lorraine Patient First Name: Rolando Language/Communication Barrier: no Service Address: [address] [place] [address] Service City: [place] Service ST: [place] Service ZIP: [address] Service (home) Other phone numbers: Telephone Information: Emergency Contact: Extended Emergency Contact Information Primary Emergency Contact: Jin Peters Address: [address] [place] [id number] [facility] Mobile Relation: Spouse Secondary Emergency Contact: Ene Negrete Address: [address] [place], [place] [id number] [place] [address] Mobile Relation: Daughter Admission Information Admit Date: 01/19/2024 Patient status at discharge: Inpatient Admitting Diagnosis: Atrial fibrillation with RVR (HCC) [I48.91] Acute heart failure, unspecified heart failure type (HCC) [I50.9] Caregiver Information Caregiver First Name: na Caregiver Last Name: na Caregiver Relationship to Patient na Caregiver Phone Number: na Caregiver Notes: N/A [employer] List No END PATIENT REGISTRATION INFORMATION Pt Home Health goal go home COVID Status 1. Do you have any upper respiratory symptoms (cough, SOB, Fever)? No 2. Have you been exposed to anyone with COVID-19 Virus? No Answer only if pending or positive for COVID-19? 1. Agreeable to wear PPE at each visit? No 2. Is the hospital supplying them with PPE upon Discharge? No Start PACC Summary General Report/ Additional Comments Return home with SN/PT services Discharge Date: pending Referral Source-PACC: (Hospital/Unit): [facility] / [id number]/[id number] A End PACC Note [id number]* Home Care - Jill Mancini RN - 01/22/2024 2:18 PM EDT Start PACC Note Home Health Referral Educated patient on Home Care and services available. Patient offered choice of available HHC and agreeable to SN/PT services with [facility] - Home Care. Care Types: None Isolation Precautions: No active isolations Social Determinates of Health: Tobacco Use: Medium Risk (01/19/2024) Patient History Smoking Tobacco Use: Former Smokeless Tobacco Use: Never Passive Exposure: Not on file Social History Substance and Sexual Activity Alcohol Use Yes Alcohol/week: 0.0 - 14.0 standard drinks of alcohol Comment: occ Social History Substance and Sexual Activity Drug Use No Does the patient have any financial resource strain? No Does the patient have any food insecurities? No Does the patient have any housing instabilities? No If any of the above is noted as yes - consider a CRIMINAL JUSTICE LAWYER evaluation once the patient returns home. START PATIENT REGISTRATION INFORMATION Order Information Order Signing Physician: Manjit Ramirez MD Service Ordered RN ?: Yes Service Ordered PT ?: Yes Service Ordered OT ?: No Service Ordered ST ?: No Service Ordered CRIMINAL JUSTICE LAWYER?:No Service Ordered BOX BENDER?: No Following Physician: CELIA AL DO Following Physician Overseeing Physician: CELIA AL DO (Required for Residents only) Agreeable to Follow? Yes Date/Time of Call 01/22/24 2:18 PM, Spoke with: office staff Care Coordination Same Day SOC?: No Primary Care Physician: CELIA AL DO Primary Care Physician Primary Care Physician [facility] [place] [address] [place]* Visit Instructions: N/A Service Discharge Location Type: Home with Home Health Care Service Facility Name: N/A Service Floor Facility: N/A Service Room No: N/A Demographics Patient Last Name: Lorraine Patient First Name: Rolando Language/Communication Barrier: no Service Address: [address] [place] [address] Service City: [place] Service ST: [place] Service ZIP: [address] Service (home) Other phone numbers: Telephone Information: Emergency Contact: Extended Emergency Contact Information Primary Emergency Contact: Jin Peters Address: [address] [place] [address] [facility] Mobile Relation: Spouse Secondary Emergency Contact: Ene Negrete Address: [address] Mobile Relation: Daughter Admission Information Admit Date: 01/19/2024 Patient status at discharge: Inpatient Admitting Diagnosis: Atrial fibrillation with RVR (HCC) [I48.91] Acute heart failure, unspecified heart failure type (HCC) [I50.9] Caregiver Information Caregiver First Name: na Caregiver Last Name: na Caregiver Relationship to Patient na Caregiver Phone Number: na Caregiver Notes: N/A A [employer] List No END PATIENT REGISTRATION INFORMATION Pt Home Health goal go home COVID Status 1. Do you have any upper respiratory symptoms (cough, SOB, Fever)? No 2. Have you been exposed to anyone with COVID-19 Virus? No Answer only if pending or positive for COVID-19? 1. Agreeable to wear PPE at each visit? No 2. Is the hospital supplying them with PPE upon Discharge? No Start PACC Summary General Report/ Additional Comments Return home with SN/PT services Discharge Date: pending Referral Source-PACC: (Hospital/Unit): [facility] / / A End PACC Note [id number] Hospital Discharge instructions* Discharge Instr - CARRILLO* Jill Mancini RN - 01/22/2024 2:18 PM EDT Continuity of Care Form Patient Name: Rolando Peters : 1945 Admit date: 01/19/2024 Discharge date: Code Status Order: Full Code Advance Directives: N Admitting Physician: Manjit Ramirez MD PCP: CELIA AL DO Discharging Nurse: Discharging Hospital Unit/Room#: T1-114/T1-114 A Discharging Unit Phone Number: Emergency Contact: Extended Emergency Contact Information Primary Emergency Contact: Jin Peters Address: [address] [place] [address] Mobile Relation: Spouse Secondary Emergency Contact: PenelopeEne Address: [address] [place], [place] [id number] [place] [address] Mobile Relation: Daughter Past Surgical History: Past Surgical History: Procedure Laterality Date CAROTID ENDARTERECTOMY Right 2009 CATARACT EXTRACTION Bilateral 2006 CHEST TUBE INSERTION Right 10/05/2023 ENDOBRONCHIAL ULTRASOUND EBUS (HISTORICAL) 10/05/2023 MASTECTOMY Left 2010 simple/reconstruction/gingivagrapht MASTECTOMY Right 1993 reconstruction (TRAM) TOTAL ABDOMINAL HYSTERECTOMY W/ BILATERAL SALPINGOOPHORECTOMY 1998 TUBAL LIGATION 1979 Immunization History: Immunization History Administered Date(s) Administered Covid-19, Pfizer Bivalent Booster, (Age 12y+), Im, 30 Mcg/0e 06/02/2022 Covid-19, Pfizer Lee Top, Do Not Dilute, (Age 12 Y+), Im, L 01/01/2022 Influenza, High-dose Seasonal, Quadrivalent, Preservative Free 06/02/2022 Influenza, Seasonal, Quadrivalent, Adjuvanted 05/09/2020, 05/29/2020, 05/17/2021 Influenza, Unspecified 06/24/2005, 07/01/2006, 07/27/2007, 05/25/2008, 05/19/2009, 08/14/2010, 04/30/2011, 08/05/2012, 04/28/2013, 05/09/2014, 05/16/2015, 05/05/2016, 06/07/2020, 06/07/2020, 05/18/2021, 06/02/2022 Influenza, injectable, quadrivalent, preservative free 05/09/2014, 05/16/2015, 05/05/2016, 05/15/2017, 06/24/2018, 05/25/2019 Influenza, seasonal, injectable 06/24/2005, 07/01/2006, 07/27/2007, 05/25/2008, 05/19/2009, 08/14/2010, 04/30/2011, 08/05/2012, 04/28/2013, 06/07/2020, 05/18/2021 Pfizer SARS-CoV-2 Vaccination 09/17/2020, 10/02/2020, 10/23/2020, 07/10/2021, 01/01/2022, 06/02/2022 Pneumococcal Polysaccharide PPSV23 04/30/2011 SARS-CoV-2, Unspecified 01/01/2022 TD (adult), 2 Lf tetanus toxoid, preservative free, adsorbed 12/10/2010 Td (adult) 12/10/2010 Active Problems: Medical Problems Problem List * (Principal) Atrial fibrillation with RVR (HCC) Gout 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 Tendinitis of hip Obstructive sleep apnea syndrome Osteoporosis Disorder of bone Anxiety Vitamin D deficiency History of anesthesia problem Spondylosis without myelopathy or radiculopathy, lumbosacral region Low back pain Orthostatic hypotension 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 07/2022 w/o Paxlovid. Other nonspecific abnormal finding of lung field Isolation/Infection: No active isolations No active infections Nurse Assessment: Last Vital Signs: BP 133/56 Pulse 74 Temp 36.6 C (97.9 F) (Temporal) Resp 15 Ht 1.702 m (5'7) Wt 70.8 kg (156 lb) SpO2 91% BMI 24.43 kg/m Last documented pain score (0-10 scale): Last Weight: Wt Readings from Last 1 Encounters: 01/22/24 70.8 kg (156 lb) Mental Status: {CARRILLO Patient Mental Status:14252} IV Access: {CARRILLO IV Access:36705} Nursing Mobility/ADLs: Walking {KIMMY ADL:75190::Independent} Transfer {KIMMY ADL:03485::Independent} Bathing {KIMMY ADL:45013::Independent} Dressing {KIMMY ADL:60911::Independent} Toileting {KIMMY ADL:02769::Independent} Feeding {KIMMY ADL:36313::Independent} Supervisor [employer] {KIMMY ADL:17672::Independent} Med Delivery {yes/no:69447} Wound Care Documentation and Therapy: Elimination: Continence: Bowel: {yes/no:64476} Bladder: {yes/no:12376} Urinary Catheter: {CARRILLO Urinary Catheter:28444} Colostomy/Ileostomy/Ileal Conduit: {YES / NO:} Date of Last BM: Intake/Output Summary (Last 24 hours) at 01/22/2024 1417 Last data filed at 01/22/2024 0900 Gross per 24 hour Intake 350 ml Output 1600 ml Net -1250 ml I/O last 3 completed shifts: In: 100 (1.4 mL/kg) [P.O.:100] Out: 2550 (36 mL/kg) [Urine:2550 (1 mL/kg/hr)] Weight: 70.8 kg Safety Concerns: {CARRILLO Safety Concerns:09548} Impairments/Disabilities: {CARRILLO Impairments/Disabilities:83419} Nutrition Therapy: Current Nutrition Therapy: {CARRILLO Diet List:39572} Routes of Feeding: {routes of feedin} Liquids: {liquid consistency:00397} Daily Fluid Restriction: {daily fluid restriction:88123} Last Modified Barium Swallow with Video (Video Swallowing Test): {done not done:79452} Treatments at the Time of Hospital Discharge: Respiratory Treatments: Oxygen Therapy: {Therapy; copd oxygen:01152} Ventilator: {CARRILLO Ventilator:51421} Rehab Therapies: {GEN THERAPY DISCIPLINE SCAL:7210779} Weight Bearing Status/Restrictions: {POD WEIGHT BEARIN} Other Medical Equipment (for information only, NOT a DME order): {Assistive Devices DME:30715} Other Treatments: Patient's personal belongings (please select all that are sent with patient): {CARRILLO Patient Belongings:24436} RN SIGNATURE: {E-signature:68478} CASE MANAGEMENT/SOCIAL WORK SECTION Inpatient Status Date: Readmission Risk Assessment Score: @READMISSIONRISKDETAILS@ Discharging to Facility/ Agency Name: [facility] Address: [address] [place] [address] Dialysis Facility (if applicable) Name: Address: Dialysis Schedule: Phone: Fax: Strategic Marketing Manager/Tenon Machine Operator signature: {E-signature:04595} PHYSICIAN SECTION Prognosis: {Rehab Prognosis:49849} Condition at Discharge: {Patient Condition:15818} Rehab Potential (if transferring to Rehab): {Rehab Prognosis:41959} Recommended Labs or Other Treatments After Discharge: Physician Certification: I certify the above information and transfer of Rolando Peters is necessary for the continuing treatment of the diagnosis listed and that she requires {CARRILLO Level of Care:35409}for {greater less than:84770} 30 days. Update Admission H&P: {CARRILLO Changes in H&P:18533} PHYSICIAN SIGNATURE: {E-signature:02328} * Attachments The following attachments cannot be sent through Care Everywhere. * Atrial Fibrillation (Tristanian) * Amiodarone, ADULT (Tristanian) * Apixaban, ADULT (Tristanian) * Sertraline, ADULT (Tristanian) * Carvedilol, ADULT (Tristanian) documented in this [facility]06-07-2024 Note* Care Coordination - Magaly Adames RN - 01/22/2024 2:15 PM EDT Updated by primary team, PT recommending home with [facility]. Spoke with [facility], they are currently setting up home care for patient. [facility] [id number] Note* Care Coordination - Magaly Adames RN - 01/22/2024 2:15 PM EDT Updated by primary team, PT recommending home with [facility]. Spoke with [facility], they are currently setting up home care for patient. [facility] [id number] Plan of care note* Care Plan - Magalis Sibley RN - 01/22/2024 11:55 AM EDT Problem: Safety - Adult Goal: Free from fall injury Outcome: Progressing Flowsheets (Taken 01/22/2024 1155) Free from fall injury: Instruct family/caregiver on patient safety Problem: Discharge Planning Goal: Discharge to home or other facility with appropriate resources Outcome: Progressing Flowsheets (Taken 01/22/2024 1155) Discharge to home or other facility with appropriate resources: Identify discharge learning needs (meds, wound care, etc) Identify barriers to discharge with patient and caregiver Problem: Chronic Conditions and Co-morbidities Goal: Patient's chronic conditions and co-morbidity symptoms are monitored and maintained or improved Outcome: Progressing Flowsheets Taken 01/22/2024 1155 Care Plan - Patient's Chronic Conditions and Co-Morbidity Symptoms are Monitored and Maintained or Improved: Monitor and assess patient's chronic conditions and comorbid symptoms for stability, deterioration, or improvement Taken 01/22/2024 0725 Care Plan - Patient's Chronic Conditions and Co-Morbidity Symptoms are Monitored and Maintained or Improved: Monitor and assess patient's chronic conditions and comorbid symptoms for stability, deterioration, or improvement T [facility] [id number] Plan of care note* Care Plan - Magalis Sibley RN - 01/21/2024 9:47 AM EDT Problem: Safety - Adult Goal: Free from fall injury Outcome: Progressing Flowsheets (Taken 01/21/2024 09) Free from fall injury: Instruct family/caregiver on patient safety Problem: Discharge Planning Goal: Discharge to home or other facility with appropriate resources Outcome: Progressing Flowsheets (Taken 01/21/2024946) Discharge to home or other facility with appropriate resources: Identify discharge learning needs (meds, wound care, etc) Identify barriers to discharge with patient and caregiver Problem: Chronic Conditions and Co-morbidities Goal: Patient's chronic conditions and co-morbidity symptoms are monitored and maintained or improved Outcome: Progressing Flowsheets (Taken 01/21/2024946) Care Plan - Patient's Chronic Conditions and Co-Morbidity Symptoms are Monitored and Maintained or Improved: Monitor and assess patient's chronic conditions and comorbid symptoms for stability, deterioration, or improvement T [facility] [id number] Nurse procedure note* Sedation Documentation - Shelley Munoz MD - 01/20/2024 4:28 PM EDT Images from the original note were not included. Rolando Peters : 1945(79 y.o.) Date: January 20, 2024 Conscious Sedation Procedure Note Sedation Goal: deep Consent: The indications, risks, benefits, alternatives to the procedure were explained to the patient/surrogate decision maker and their questions answered. Consent was obtained to proceed with the procedure. Time Out: Completed immediately prior to the start of the procedure which included verification of the correct patient, correct site and agreement on the procedure to be done. Procedure: DMITRY and DCCV Practitioner: Dr. Hughes Indication: Atrial fibrillation/flutter with RVR Allergies: Allergies Allergen Reactions Isosulfan Blue Anaphylaxis Methylene Blue Sulfa Antibiotics Rash NPO for 8 hrs Significant co-morbidities: cardiac disease Pre-Sedation Assessment Pre-Sedation Vital Signs: Vital Signs: Heart Rate- 106, Respirations-22 , Blood Pressure-129/48, on nipride , Pulse Ox-100 % Pre-Sedation Exam: Assessment: I have reviewed the patient's history and review of systems. Pulmonary: no distress Cardiovascular: irregular rhythm ENT: dentition not prohibitive and mild edema L cheek/mandible area secondary to enlarged lymph node Mallampati: Mallampati Class II - (soft palate, fauces & uvula are visible) ASA Classification: Class 3 - A patient with severe systemic disease that limits activity but is not incapacitating History of Anesthesia Complications: none Immediate Pre-Sedation Assessment There have been no changes in the patient's status since the initial assessment. Intra-Sedation Assessment Monitoring and Safety: The patient was placed on a physical therapist center manager and vital signs, pulse oximetry, and level of consciousness were continuously evaluated throughout the procedure. The patient was closely monitored until recovery from the medications was complete and the patient had returned to baseline status. Respiratory therapy was on standby at all times during the procedure. Medications Used: 210 mg Propofol Post-Sedation Assessment Post-Sedation Vital Signs: Vital Signs: Heart Rate- 114, sinus tach, Respirations-20 , Blood Pressure- 128/82 , Pulse Ox-100 % Post-Sedation Exam: Pulmonary: no distress Cardiovascular: mild tachycardia Start time: 1445 Stop time: 1528 Complications: none apparent Sedation Provider: I personally performed the sedation documented as signed by this procedure note. [employer] Work Phone: [phone] 394-737806-05-2024 Nurse Note* Radha Yuan RN - 01/20/2024 2:45 PM EDT 1445 time out with pt rn, Dr. Alexander Matthew for DMITRY with Cardioversion for A fib VSS through out procedure, DMITRY completed, cardioverted X 2 at 200 joles to sinus tach. Total of 210mg IV propofol given 1345 pt awake, alert, oriented X 4, VSS, daughter to bedside. [facility] [id number] Note* Care Coordination - Magaly Adames RN - 01/20/2024 2:31 PM EDT Care Managment Initial Assessment Date: 01/20/2024 Patient Name: Rolando Peters : 1945 Patient Information Source of Information: Patient Cognition/Language: WFL - Within Functional Limits Permission given to speak with patient customer support representative/caregiver as indicated: Confirmation of Payer with patient/family: Yes Payer Name: [employer] Medicare [place]: No Confirmation of Primary Care Physician: Confirmed PCP Name: Dr. Al Seen in last 2 years?: Yes Primary Caregiver: Self If assistance needed, confirmed caregiver ready, willing and able to care for patient at discharge: Confirmed with: Living Arrangements Current Residence: House Number of Floors 3 Number of Entry Steps: 2 Bed/Bath Levels: Separate floors (Split level, 5 stairs between levels) Facility: Facility Name: Plan to Return: Lives with: Spouse/significant other, Children Support Systems: Spouse/significant other, Children, Family members Activities of Daily Living Ambulation: Independent Bathing/Dressing: Independent Elimination/Continence/Toileting: Independent Feeding: Independent Who Assists with Activities of Daily Living: Instrumental Activities of Daily Living Prescription Coverage: Yes Pharmacy Used: [facility] in [place] Medication Management: Independent Transportation/Shopping: Independent Transportation Mode: Car Needs Assistance with Transportation at Discharge: No Meal Preparation: Independent Laundry/Cleaning: Independent Finances/Bill Paying: Independent Communication: Independent Types of Care Services/Equipment Utilized Care Services: Dialysis Type: Durable Medical Equipment: Patient's Goal/Discharge Plan Patient expects to be discharged to: home Discharge Planning Actions: No needs identified Patient's Choice Rights and [employer] and Collaborative Relationships Disclosed as Indicated for Post-Acute Care: Interdisciplinary Team Engagement: Social Work Referral for: Additional Information: Patient admitted to CTV ICU with new onset heart failure likely tachycardia mediated. Spoke with patient at bedside, introduced self and role. Patient from home with and son, isindependent, spouse has DME, has PCP and prescription coverage, will have a ride home and anticipate no discharge needs. Magaly Adames RN [facility] [id number] Note* Care Coordination - Magaly Adames RN - 01/20/2024 2:31 PM EDT Care Managment Initial Assessment Date: 01/20/2024 Patient Name: Rolando Peters : 1945 Patient Information Source of Information: Patient Cognition/Language: WFL - Within Functional Limits Permission given to speak with patient customer support representative/caregiver as indicated: Confirmation of Payer with patient/family: Yes Payer Name: [employer] Medicare [place]: No Confirmation of Primary Care Physician: Confirmed PCP Name: Dr. Al Seen in last 2 years?: Yes Primary Caregiver: Self If assistance needed, confirmed caregiver ready, willing and able to care for patient at discharge: Confirmed with: Living Arrangements Current Residence: House Number of Floors 3 Number of Entry Steps: 2 Bed/Bath Levels: Separate floors (Split level, 5 stairs between levels) Facility: Facility Name: Plan to Return: Lives with: Spouse/significant other, Children Support Systems: Spouse/significant other, Children, Family members Activities of Daily Living Ambulation: Independent Bathing/Dressing: Independent Elimination/Continence/Toileting: Independent Feeding: Independent Who Assists with Activities of Daily Living: Instrumental Activities of Daily Living Prescription Coverage: Yes Pharmacy Used: [facility] in [place] Medication Management: Independent Transportation/Shopping: Independent Transportation Mode: Car Needs Assistance with Transportation at Discharge: No Meal Preparation: Independent Laundry/Cleaning: Independent Finances/Bill Paying: Independent Communication: Independent Types of Care Services/Equipment Utilized Care Services: Dialysis Type: Durable Medical Equipment: Patient's Goal/Discharge Plan Patient expects to be discharged to: home Discharge Planning Actions: No needs identified Patient's Choice Rights and [employer] and Collaborative Relationships Disclosed as Indicated for Post-Acute Care: Interdisciplinary Team Engagement: Social Work Referral for: Additional Information: Patient admitted to CTV ICU with new onset heart failure likely tachycardia mediated. Spoke with patient at bedside, introduced self and role. Patient from home with and son, isindependent, spouse has DME, has PCP and prescription coverage, will have a ride home and anticipate no discharge needs. Magaly Adames RN [id number] Emergency department Note* Jaqueline Shannon RN - 01/19/2024 7:29 PM EDT Report called to Kimi. She has no further questions. Jaqueline Shannon RN 01/19/241928 [facility] [id number] Emergency department Note* Jaqueline Shannon RN - 01/19/2024 7:29 PM EDT Report called to Kmii. She has no further questions. Jaqueline Shannon RN 01/19/241928 * Jaqueline Shannon RN - 01/19/2024 6:30 PM EDT Pure wick changed and new chux pad placed underneath Jaqueline Shannon RN 01/19/24 1830 * Jaqueline Shannon RN - 01/19/2024 5:41 PM EDT Pt placed on 3L due to sat at 90%. Pt sat 98%. Jaqueline Shannon RN 01/19/24 1741 * Jaqueline Shannon RN - 01/19/2024 5:17 PM EDT Pt is off of bipap. Sat 100% on RA. Jaqueline Shannon RN 01/19/24 1718 * Jaqueline Shannon RN - 01/19/2024 5:09 PM EDT Pt to be trialed off of bipap by respiratory Jaqueline Shannon RN 01/19/24 1710 * Jaqueline Shannon RN - 01/19/2024 4:43 PM EDT Cardiology at bedside Jaqueline Shannon RN 01/19/24 1643 * Jaqueline Shannon RN - 01/19/2024 3:56 PM EDT Pt states that she is able to breathe better now. Pt remains on bipap and her skin is less mottled. Jaqueline Shannon RN 01/19/24 1557 * Jaqueline Shannon RN - 01/19/2024 3:37 PM EDT Lasix given to patient. Pure wick put in place. Jaqueline Shannon RN 01/19/24 1537 * Jaqueline Shannon RN - 01/19/2024 3:15 PM EDT Pt placed on bipap per Dr. Harris. Jaqueline Shannon RN 01/19/24 1516 * Jaqueline Shannon RN - 01/19/2024 3:04 PM EDT Pt given 0.3 mL of epi per Dr. Harris due to hives and Sob after returning from CT. Jaqueline Shannon RN 01/19/24 1505 * Fay Grover RN - 01/19/2024 2:37 PM EDT Pt came back from her CTA restless and stated difficulty breathing. Pt was 87 on RA and placed on aNC at 4L and came back up to 96. Dr Christensen notified and assessed pt and ordered benadryl. Fay Grover RN 01/19/24 1449 * Fay Grover RN - 01/19/2024 1:32 PM EDT Pt back from CT Fay Grover RN 01/19/24 1333 * Fay Grover RN - 01/19/2024 1:19 PM EDT Pt to CT via cart Fay Grover RN 01/19/24 1320 * Cinthya Christensen MD - 01/19/2024 12:03 PM EDT EMERGENCY DEPARTMENT ENCOUNTER Pt Name: Rolando Peters Birthdate 1945 Date of evaluation: 01/19/2024 ED Provider: Cinthya Christensen MD CHIEF COMPLAINT Chief Complaint Patient presents with Weakness, Gen Pt brought in by EMS from Dr. Richards. Pt states having weakness and shortness of breath for past 2-3weeks. EMS states they did an EKG and found that pt is in Afib with RVR 120 to 150 beats a min. Pt states on and off chest pain. Chest Pain HISTORY OF PRESENT ILLNESS (Location/Symptom, Timing/Onset, Context/Setting, Quality, Duration, Modifying Factors, Severity) Note limiting factors. I wore appropriate PPE for the entirety of this encounter. HPI Rolando Peters is a 79 y.o. who presents to the emergency department for weakness, shortness of breath, palpitations for the past 2 to 3 weeks. Also endorses intermittent chest pain when she feels the palpitations. Has no history of A-fib or SVT, however, does have history of cancer. Not on anticoagulation. Also endorses right upper quadrant abdominal pain that she feels radiates down to her groin.Is being treated for pneumonia as well with outpatient antibiotics. No fever, chills, nausea, vomiting, diarrhea. Nursing Notes were reviewed. Limitations to history: None Outside historians: None REVIEW OF SYSTEMS Review of Systems Pertinent positives and negatives as per HPI. PAST MEDICAL HISTORY Past Medical History: Diagnosis Date Arthritis Asthma Breast cancer (HCC) 1993 Right Breast(Mastectomy) Breast cancer (HCC) 2010 Left Breast(Simple Mastectomy, SLND) Chronic kidney disease Diabetes (HCC) GERD (gastroesophageal reflux disease) High blood pressure Occlusion and stenosis of unspecified carotid artery Pure hypercholesterolemia Syncope and collapse 08/29/2022 SURGICAL HISTORY Past Surgical History: Procedure Laterality Date CAROTID ENDARTERECTOMY Right 2008 CATARACT EXTRACTION Bilateral 2006 CHEST TUBE INSERTION Right 10/05/2023 ENDOBRONCHIAL ULTRASOUND EBUS (HISTORICAL) 10/05/2023 MASTECTOMY Left 2010 simple/reconstruction/gingivagrapht MASTECTOMY Right 1993 reconstruction (TRAM) TOTAL ABDOMINAL HYSTERECTOMY W/ BILATERAL SALPINGOOPHORECTOMY 1998 TUBAL LIGATION 1979 CURRENT MEDICATIONS Previous Medications ALBUTEROL (VENTOLIN HFA) 108 (90 BASE) MCG/ACT INHALER Inhale 2 puffs every 4 hours as needed for wheezing or shortness of breath. AMLODIPINE (NORVASC) 5 MG TABLET Take 5 mg by mouth daily. ASPIRIN 81 MG CHEWABLE TABLET daily. ATOVAQUONE (MEPRON) 750 MG/5ML SUSPENSION Take 10 mL (1,500 mg) by mouth daily. CHOLECALCIFEROL (VITAMIN D-3) 50 MCG (2000 UT) TABLET Take 4,000 Units by mouth daily. CITALOPRAM (CELEXA) 20 MG TABLET Take 20 mg by mouth daily. EZETIMIBE (ZETIA) 10 MG TABLET Take 1 tablet (10 mg) by mouth in the morning. FINERENONE (KERENDIA) 10 MG TABLET Take 1 tablet by mouth daily. FLUTICASONE (CUTIVATE) 0.05 % CREAM Apply topically Daily as needed (itching). FLUTICASONE (FLONASE) 50 MCG/ACT NASAL SPRAY Administer 1 spray into each nostril daily. Shake gently. Before first use, prime pump. After use, clean tip and replace cap. JENTADUETO XR 2.5-1000 MG PER 24 HR TABLET take 2 tablets by mouth once daily LANSOPRAZOLE (PREVACID) [address] CAPSULE 1 capsule in the morning. LOSARTAN (COZAAR) 100 MG TABLET losartan 100 mg tablet METOPROLOL TARTRATE (LOPRESSOR) 25 MG TABLET metoprolol tartrate 25 mg tablet PREDNISONE (DELTASONE) 10 MG TABLET Take 2 tablets (20 mg) by mouth daily. Take 2 tablets (20mg) daily x 4 weeks, then 1 tablet (10mg) daily x 4 weeks ROSUVASTATIN (CRESTOR) 10 MG TABLET daily. TIOTROPIUM (SPIRIVA RESPIMAT) 2.5 MCG/ACT INHALER Inhale 2 puffs daily. VASCEPA 1 G CAPSULE TAKE 2 CAPSULES BY MOUTH 2 TIMES DAILY ALLERGIES Isosulfan blue, Methylene blue, and Sulfa antibiotics FAMILY HISTORY Family History Problem Relation Name Age of Onset Ovarian cancer Mother 66 Heart attack Father Baljeet 76 High Blood Pressure Father Baljeet Macular degeneration Father Baljeet Ovarian cancer Mother's Sister 45 Other ([id number]) Son neuofibromatosis, BRCA1 positive Neurofibromatosis Son High Blood Pressure Son Cancer Son hairy cell leukemia Breast cancer Cousin 42 +brca Bladder Cancer Cousin 19 SOCIAL HISTORY Social History Socioeconomic History Marital status: Tobacco Use Smoking status: Former Packs/day: 1.50 Years: 20.00 Additional pack years: 0.00 Total pack years: 30.00 Types: Cigarettes Quit date: 06/12/1991 Years since quittin.6 Smokeless tobacco: Never 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: , 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[facility], 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, 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 Vaping Use Vaping Use: Never used Substance and Sexual Activity Alcohol use: Yes Alcohol/week: 0.0 - 14.0 standard drinks of alcohol Comment: occ Drug use: No Social Determinants of Health Intimate Partner Violence: Not At Risk (10/05/2023) Humiliation, Afraid, Rape, and Kick questionnaire Fear of Current or Ex-Partner: No Emotionally Abused: No Physically Abused: No Sexually Abused: No SCREENINGS PHYSICAL EXAM ED Triage Vitals [01/19/24 1210] Temp Heart Rate Resp BP 36.6 C (97.8 F) (!) 160 18 (!) 145/111 SpO2 Temp Source Heart Rate Source Patient Position 96 % Oral Monitor -- BP Location FiO2 (%) -- -- Physical Exam Vitals and nursing note reviewed. Constitutional: General: She is in acute distress. Appearance: She is well-developed. She is not ill-appearing. HENT: Head: Normocephalic and atraumatic. Eyes: Conjunctiva/sclera: Conjunctivae normal. Cardiovascular: Rate and Rhythm: Normal rate and regular rhythm. Heart sounds: No murmur heard. Pulmonary: Effort: Pulmonary effort is normal. No respiratory distress. Breath sounds: Normal breath sounds. No decreased breath sounds or wheezing. Abdominal: Palpations: Abdomen is soft. Tenderness: There is abdominal tenderness (Right upper quadrant). Musculoskeletal: General: No swelling. Cervical back: Neck supple. Right lower leg: No tenderness. No edema. Left lower leg: No tenderness. No edema. Skin: General: Skin is warm and dry. Capillary Refill: Capillary refill takes less than 2 seconds. Neurological: General: No focal deficit present. Mental Status: She is alert and oriented to person, place, and time. Psychiatric: Mood and Affect: Mood normal. DIAGNOSTIC RESULTS RADIOLOGY (Per Emergency Physician): Interpretation per the Radiologist below, if available at the time of this note: CT abdomen pelvis w contrast Final Result Interstitial pulmonary edema and pleural effusions. Gallbladder edema and pericholecystic fluid suspicious for cholecystitis but less specific in the setting of volume overload. Consider sonography after diuresis versus HIDA scan. Report Dictated on Electronically Signed By: Karolina Lincoln MD Electronically Signed Date/Time: 01/19/2024 2:23 PM EDT XR chest 1 view Final Result 1. New right pleural effusion. Opacity projecting over the lower 1/2 right lung. 2. 2.7 x 2.2 cm nodular density overlying the mid left lung, which is new compared to the prior exam. Report Dictated on Electronically Signed By: Amanuel Rosas MD Electronically Signed Date/Time: 01/19/2024 12:59 PM EDT CTA chest angiogram w and/or wo IV contrast (Results Pending) LABS: Labs Reviewed BASIC METABOLIC PANEL - Abnormal Result Value SODIUM 130 (*) POTASSIUM 4.9 CHLORIDE 97 (*) CARBON DIOXIDE 19 (*) UREA NITROGEN 28 (*) CREATININE 0.95 GLUCOSE 137 (*) CALCIUM 8.7 ANION GAP 13 eGFR 61.5 CBC WITH AUTO DIFFERENTIAL - Abnormal Auto WBC 10.1 RBC 3.61 (*) Hemoglobin 11.0 (*) Hematocrit 33.8 (*) MCV 93.6 MCH 30.5 MCHC 32.5 RDW 15.0 Platelets 226 MPV 10.3 nRBC 0.0 Neutrophils Relative 83.7 (*) Lymphocytes Relative 6.2 (*) Monocytes Relative 8.5 Eosinophils Relative 0.1 Basophils Relative 0.4 Immature Grans % 1.1 Neutrophils Absolute 8.5 (*) Lymphocytes Absolute 0.6 (*) Monocytes Absolute 0.9 Eosinophils Absolute 0.0 Basophils Absolute 0.0 Immature Grans Absolute 0.1 (*) HEPATIC FUNCTION PANEL - Abnormal BILIRUBIN, TOTAL 2.1 (*) BILIRUBIN, DIRECT 0.0 ALKALINE PHOSPHATASE 121 AST (SGOT) 65 (*) ALT 84 (*) ALBUMIN 4.0 TOTAL PROTEIN 6.5 NT PRO BNP - Abnormal NT PRO BNP 6,800 (*) BLOOD GAS ARTERIAL - Abnormal pH, Arterial 7.236 (*) pCO2, Arterial 29.6 (*) pO2, Arterial 145.5 (*) HCO3, Arterial 12.3 (*) O2 Sat, Arterial 97.9 Base Excess, Arterial -13.8 (*) CO2 Total 13.2 (*) Hgb, blood gas 11.8 Source Of Oxygen Non-rebreather mask TROPONIN, WITH SERIAL REFLEX - Normal TROPONIN I 0.021 Narrative: Patients with high levels of Biotin oral intake (ie >5 mg/day) may have falsely decreased Troponin levels. LIPASE - Normal LIPASE 83 COMPLETE URINALYSIS WITH REFLEX TO CULTURE Narrative: The following orders were created for panel order Complete Urinalysis with reflex to Culture. Procedure Abnormality Status --------- ------ Complete Urinalysis[[id number]] Please view results for these tests on the individual orders. COMPLETE URINALYSIS TROPONIN I TROPONIN I All other labs were within normal range or not returned as of this dictation. EMERGENCY DEPARTMENT COURSE and DIFFERENTIAL DIAGNOSIS/MDM: Vitals: Vitals: 01/19/24 1526 01/19/24 1527 01/19/24 1537 01/19/24 1557 BP: (!) 134/122 (!) 139/98 (!) 139/98 BP Location: Patient Position: Lying Lying Lying Pulse: (!) 136 (!) 140 (!) 150 (!) 116 Resp: (!) 27 18 18 Temp: TempSrc: SpO2: 100% 100% 100% 100% Weight: Height: The patient presented with a chief complaint of palpitations, shortness of breath. The differentialdiagnosis associated with this patient's presentation includes new onset A-fib RVR, SVT, MAT, pneumonia, cholecystitis, appendicitis, pneumonia, ACS, urinary stone, UTI, heart failure. Our workup consisted of ordering/reviewing CBC, BMP, LFTs, UA, troponin, lipase, BMP, EKG, CXR. EKG significant for A-fib RVR. Given small bolus of fluids and dose of Lopressor 5 mg IV which did not significantly affect her heart rate. Ordered another 2 doses as well as her home Lopressor 25 mg. Lab work showed no signs of infection or renal disease, however, note mild transaminitis and elevated T. bili. Bedside POCUS not reveal any stones or signs of cholecystitis. BNP elevated to 6800 likely in setting of weeks of A-fib RVR. Previous echo shows 65%. Troponin negative at 0.021. Given new heart failure and tachycardia, ordered CTA to evaluate for PE. Just prior to going to scanner, patient was feeling flushed. Reevaluated patient after coming back from CT, but no evidence of rash or increasing shortness of breath or wheezing. Treated with Benadryl 50 mg IV. On reevaluation again, patient not moving air very well, but slight wheezes. Not hypotensive, but given wheezing and mottled skin post contrast exposure, given dose of IM epi. Did not improve patient's clinical status and expect decompensation from initial illness. Patient subsequently started on DuoNebs, but was behaving obtunded. Not appear hypoxic, but given confusion ABG was obtained and patient put on NIV. Patient became more cooperative subsequently. ABG shows acidosis but with respiratory compensation. CTA pending read, however, significant pleural effusion and pulmonary edema without obvious evidence of PE. Ordered Lasix IV 80 mg. CCU consulted and pending evaluation, she will likely be admitted. Patient signed out to Dr. Ramirez. Please see his note for final disposition. ED Course as of 01/19/24 1608 ThuJan 19, 2024 1233 EKG interpreted by me, atrial fibs versus a flutter with a variable block with RVR, rate 157, nonspecific ST-T changes [HH] 1459 Chest x-ray interpreted by me, pleural effusion on the right with questional infiltrate, nodular density on the left [HH] ED Course User Index [HH] Sandrine Harris, Diagnoses as of 01/19/24 1608 Atrial fibrillation with RVR (HCC) Acute heart failure, unspecified heart failure type (HCC) ED Medications managed: Medications metoprolol tartrate (Lopressor) injection 5 mg (5 mg IntraVENous Given 01/19/24 1246) sodium chloride 0.9 % bolus 500 mL (0 mL IntraVENous Stopped 01/19/24 1346) metoprolol tartrate (Lopressor) tablet 25 mg (25 mg Oral Given 01/19/24 1332) metoprolol tartrate (Lopressor) injection 5 mg (5 mg IntraVENous Given 01/19/24 1402) iopamidol (Isovue-370) 76 % injection 75 mL (75 mL IntraVENous Given 01/19/24 1324) iopamidol (Isovue-370) 76 % injection 75 mL (75 mL IntraVENous Given 01/19/24 1427) diphenhydrAMINE (BENADryl) injection 50 mg (50 mg IntraVENous Given 01/19/24 1445) EPINEPHrine (Adrenalin) injection 0.3 mg (0.3 mg IntraMUSCular Given 01/19/24 1500) furosemide (Lasix) injection 80 mg (80 mg IntraVENous Given 01/19/24 1529) Prescription drugs considered: As above PROCEDURES: Unless otherwise noted below, none Procedures FINAL IMPRESSION 1. Atrial fibrillation with RVR (HCC) DISPOSITION Admit 01/19/2024 02:57:06 PM PATIENT REFERRED TO: No follow-up provider specified. DISCHARGE MEDICATIONS: New Prescriptions No medications on file (Comment: Please note this report has been produced using speech recognition software and may contain errors related to that system including errors in grammar, punctuation, and spelling, as well as words and phrases that may be inappropriate. If there are any questions or concerns please feel freeto contact the dictating provider for clarification.) Cinthya Christensen MD (electronically signed) Emergency Medicine Provider Cinthya Christensen MD Resident 01/19/24 1601 * Kingston Ramirez MD - 01/19/2024 12:03 PM EDT Emergency Department Encounter Location: [facility] CARDI[facility] UN[facility] CTV ICU T1 Patient: Rolando Peters : 1945 Date of evaluation: 01/19/2024 ED Provider: Kingston Ramirez MD 10:37 PM Rolando Peters was checked out to me by dr christensen. Please see his/her initial documentation for details of the patient's initial ED presentation, physical exam and completed studies. In brief, Rolando Peters is a 79 y.o. female that presented to the emergency department weakness chest pain shortness of breath. Found to be in A-fib RVR. Bilateral pleural effusions. Patient given Lasix was started in an IV and is pending CCU evaluation she was treated with 3 doses of metoprolol with some improvement in heart rate. Concern for CHF with cardiogenic shock I have reviewed and interpreted all of the currently available lab results and diagnostics from this visit: Vitals: 01/19/24 2130 01/19/24 2145 01/19/24 2200 01/19/24 2215 BP: 152/94 157/85 154/84 (!) 167/108 BP Location: Patient Position: Pulse: (!) 128 (!) 130 (!) 121 (!) 124 Resp: 17 18 20 23 Temp: TempSrc: SpO2: 97% 98% 97% 98% Weight: Height: Results for orders placed or performed during the hospital encounter of 01/19/24 Basic metabolic panel Result Value Ref Range SODIUM 130 (L) 135 - 145 mmol/L POTASSIUM 4.9 3.5 - 5.1 mmol/L CHLORIDE 97 (L) 98 - 107 mmol/L CARBON DIOXIDE 19 (L) 22 - 30 mmol/L UREA NITROGEN 28 (H) 7 - 17 mg/dL CREATININE 0.95 0.52 - 1.04 mg/dL GLUCOSE 137 (H) 70 - 100 mg/dL CALCIUM 8.7 8.4 - 10.4 mg/dL ANION GAP 13 3 - 13 mmol/L eGFR 61.5 >60.0 mL/min/1.73m*2 CBC auto differential Result Value Ref Range Auto WBC 10.1 3.6 - 10.7 10*3/uL RBC 3.61 (L) 3.80 - 5.20 10*6/uL Hemoglobin 11.0 (L) 11.7 - 16.0 g/dL Hematocrit 33.8 (L) 35.0 - 47.0 % MCV 93.6 77.0 - 99.0 fL MCH 30.5 26.0 - 34.0 pg MCHC 32.5 30.5 - 36.0 % RDW 15.0 11.5 - 15.0 % Platelets 226 140 - 440 10*3/uL MPV 10.3 9.0 - 12.7 fL nRBC 0.0 0.0 - 2.0 /100 WBCs Neutrophils Relative 83.7 (H) 38.0 - 82.0 % Lymphocytes Relative 6.2 (L) 15.0 - 45.0 % Monocytes Relative 8.5 5.0 - 13.0 % Eosinophils Relative 0.1 0.0 - 6.0 % Basophils Relative 0.4 0.0 - 2.0 % Immature Grans % 1.1 0.0 - 2.0 % Neutrophils Absolute 8.5 (H) 1.8 - 7.5 10*3/uL Lymphocytes Absolute 0.6 (L) 1.0 - 4.3 10*3/uL Monocytes Absolute 0.9 0.0 - 0.9 10*3/uL Eosinophils Absolute 0.0 0.0 - 0.5 10*3/uL Basophils Absolute 0.0 0.0 - 0.2 10*3/uL Immature Grans Absolute 0.1 (H) <0.1 10*3/uL Troponin, with Serial Reflex Result Value Ref Range TROPONIN I 0.021 <0.034 ng/mL Lipase Result Value Ref Range LIPASE 83 23 - 300 U/L Hepatic function panel Result Value Ref Range BILIRUBIN, TOTAL 2.1 (H) 0.2 - 1.3 mg/dL BILIRUBIN, DIRECT 0.0 0.0 - 0.3 mg/dL ALKALINE PHOSPHATASE 121 38 - 126 U/L AST (SGOT) 65 (H) 15 - 46 U/L ALT 84 (H) 0 - 34 U/L ALBUMIN 4.0 3.5 - 5.0 g/dL TOTAL PROTEIN 6.5 6.3 - 8.2 g/dL Complete Urinalysis Result Value Ref Range Color, Urine Colorless Lt. Yellow Clarity, Urine Clear Clear pH, Urine 5.5 5.0 - 8.0 pH Leukocytes, Urine 75 (A) Negative Tushar/uL Nitrite, Urine Negative Negative Protein, Urine 50 (A) Negative mg/dL Glucose, Urine Normal Normal (<70) mg/dL Bilirubin, Urine Negative Negative mg/dL Ketones, Urine Negative Negative mg/dL Urobilinogen, Urine Normal Normal (0-1) mg/dL Blood, Urine Negative Negative mg/dL RBC, Urine 0-2 0 - 2 /HPF WBC, Urine 0-2 0 - 5 /HPF Squamous Epithelial, Urine 0-2 3 - 5 /HPF Bacteria, Urine Negative Negative /HPF Hyaline Casts, Urine 0-2 (A) Negative /LPF SPECIFIC GRAVITY OF URINE (NUMERIC) 1.024 1.005 - 1.030 NT PRO BNP Result Value Ref Range NT PRO BNP 6,800 (H) <20 - 300 pg/mL Troponin I Result Value Ref Range TROPONIN I 0.026 <0.034 ng/mL Blood Gas, Arterial Result Value Ref Range pH, Arterial 7.236 (L) 7.350 - 7.450 pCO2, Arterial 29.6 (L) >35.0 - <45.0 mm Hg pO2, Arterial 145.5 (H) 80.0 - 100.0 mm Hg HCO3, Arterial 12.3 (L) 21.0 - 25.0 mmol/L O2 Sat, Arterial 97.9 95.0 - 100.0 % Base Excess, Arterial -13.8 (L) -3.0 - 3.0 mmol/L CO2 Total 13.2 (L) 23.0 - 27.0 mmol/L Hgb, blood gas 11.8 Screen only g/dl Source Of Oxygen Non-rebreather mask Lactic acid with reflex Result Value Ref Range LACTIC ACID 2.9 (H) 0.7 - 2.0 mmol/L Magnesium Result Value Ref Range MAGNESIUM 1.6 1.6 - 2.3 mg/dL Phosphorus Result Value Ref Range PHOSPHORUS 6.2 (H) 2.5 - 4.5 mg/dL ECG 12 lead Result Value Ref Range Heart Rate 157 bpm QRSD Interval 58 ms QT Interval 289 ms QTC Interval 466 ms P [place] 84 degrees QRS [place] 56 degrees T Wave [place] 106 degrees DE Interval 101 ms ECG 12 lead Result Value Ref Range Heart Rate 137 bpm QRSD Interval 62 ms QT Interval 278 ms QTC Interval 434 ms P [place] 0 degrees QRS [place] 66 degrees T Wave [place] 73 degrees DE Interval 0 ms @EDRISRSLT@ @EDMEDSORDERED@ Final ED Course and MDM: In brief, Rolando Peters is a 79 y.o. female whose care was signed out to me by the outgoing provider. In brief, patient continues require an IV on my evaluation CCU initially evaluated patient and trialed off of NIV she was able to tolerate being off NIV however she has an elevated lactate she appears to be in cardiogenic shock so she will be admitted to the CCU for further management ED Course as of 01/19/242236Jan 19, 2024 1233 EKG interpreted by me, atrial fibs versus a flutter with a variable block with RVR, rate 157, nonspecific ST-T changes [] 1459 Chest x-ray interpreted by me, pleural effusion on the right with questional infiltrate, nodular density on the left [HH] ED Course User Index [HH] Sandrine Harris DO Diagnoses as of 01/19/242236 Atrial fibrillation with RVR (HCC) Acute heart failure, unspecified heart failure type (HCC) Final Impression 1. Atrial fibrillation with RVR (HCC) 2. Acute heart failure, unspecified heart failure type (HCC) DISPOSITION DISPOSITION Admit 01/19/2024 07:02:46 PM PATIENT REFERRED TO: No follow-up provider specified. DISCHARGE MEDICATIONS: Current Discharge Medication List @[facility]([id number]:LAST:1)@ (Please note: Portions of this note were completed with a voice recognition program. Efforts were made to edit the dictations but occasionally words and phrases are mis-transcribed.) Form [id number] Kingston Ramirez MD Emergency Resident Physician Kingston Ramirez MD Resident 01/19/242237 documented in this [facility]06-04-2024 History and physical note* Satya Mcmahon MD - 01/19/2024 7:22 PM EDT Images from the original note were not included. 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 female with PMH BL breast cancer s/p mastectomy and chemo, former smoker,asthma, emphysema, HTN, GERD, HLD, anxiety/depression that presented to [facility] on 01/19/2024 from PCP office for generalized weakness and SOB. Patient had been getting progressively more fatigued for pastseveral weeks. With intermittent primarily right sided abdominal pain. In the ED vitals significant for pulse 160, BP 145/111 and patient initially on RA but intermittently requiring 4L NC and temporarily a bipap Labs with ABGs showing PH 7.23, pco2 29.6, p02 145.5, HCO3 12.3. Glucose 137. AST 65, ALT 84. T. Bili 2.1. Troponin negative x2. BNP 6800. Lactic acid 2.9. HGB 11. UA with protein and LE. CXR with new right pleural effusion and nodular density over mid left lung new compared to prior exam. CT Abdomen pelvis w contrast Interstitial pulmonary edema and pleural effusions bilaterally andbilateral infiltrates. Gallbladder edema and pericholecystic fluid suspicious for cholecystitis butless specific in the setting of volume overload. CT chest angio with no PE, aherosclerotic disease w ith coronary artery calcifications. In ED, treated with metoprolol tartrate 5mg then 25 mg doses, lasix 80, a 500ml bolus, and dose of epinephrine and benadryl with temporary concern for reaction to contrast with imaging with hives andSOB. CCU called for eval. When seen patient reported same history as above. Now on `4L NC. States she has been feeling unwellfor about 3 months with an episode of syncope in grocery store ~3mths ago. Increasing SOB with ambulation. Denies nausea, vomiting, fevers or chills. Noted weight loss of ~60lbs over past ~6 months with unclear cause. Tolerating PO intake without issue. Mild abdominal pain mainly RLQ. Has not established with Cardiology before this. Compliant with home meds. Former 1.5ppd smoker who quit years ago. No other new concerns noted. Review of Systems: Review of Systems Constitutional: Positive for activity change, fatigue and unexpected weight change. Negative for appetite change, chills and fever. Respiratory: Positive for shortness of breath. Negative for cough and wheezing. Cardiovascular: Negative for chest pain, palpitations and leg swelling. Gastrointestinal: Positive for abdominal pain (RLQ). Negative for abdominal distention, diarrhea, nausea and vomiting. Genitourinary: Negative for difficulty urinating and dysuria. Musculoskeletal: Negative for arthralgias and myalgias. Neurological: Negative for dizziness and weakness. Past Medical History: Past Medical History: Diagnosis Date Arthritis Asthma Breast cancer (HCC) 1993 Right Breast(Mastectomy) Breast cancer (HCC) 2010 Left Breast(Simple Mastectomy, SLND) Chronic kidney disease Diabetes (HCC) GERD (gastroesophageal reflux disease) High blood pressure Occlusion and stenosis of unspecified carotid artery Pure hypercholesterolemia Syncope and collapse 08/29/2022 Past Surgical History: Past Surgical History: Procedure Laterality Date CAROTID ENDARTERECTOMY Right 2009 CATARACT EXTRACTION Bilateral 2006 CHEST TUBE INSERTION Right 10/05/2023 ENDOBRONCHIAL ULTRASOUND EBUS (HISTORICAL) 10/05/2023 MASTECTOMY Left 2010 simple/reconstruction/gingivagrapht MASTECTOMY Right 1993 reconstruction (TRAM) TOTAL ABDOMINAL HYSTERECTOMY W/ BILATERAL SALPINGOOPHORECTOMY 1998 TUBAL LIGATION 1979 Family History: Family History Problem Relation Name Age of Onset Ovarian cancer Mother 66 Heart attack Father Baljeet 76 High Blood Pressure Father Baljeet Macular degeneration Father Baljeet Ovarian cancer Mother's Sister 45 Other ([id number]) Son neuofibromatosis, BRCA1 positive Neurofibromatosis Son High Blood Pressure Son Cancer Son hairy cell leukemia Breast cancer Cousin 42 +brca Bladder Cancer Cousin 19 Social History: Social History Tobacco Use Smoking status: Former Packs/day: 1.50 Years: 20.00 Additional pack years: 0.00 Total pack years: 30.00 Types: Cigarettes Quit date: 06/12/1991 Years since quittin.6 Smokeless tobacco: Never 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: , 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[facility], 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, 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 Vaping Use Vaping Use: Never used Substance Use Topics Alcohol use: Yes Alcohol/week: 0.0 - 14.0 standard drinks of alcohol Comment: occ Drug use: No Allergies: Allergies Allergen Reactions Isosulfan Blue Anaphylaxis Methylene Blue Sulfa Antibiotics Rash Medications: Current Outpatient Medications Medication Instructions albuterol (Ventolin HFA) 108 (90 Base) MCG/ACT inhaler 2 puffs, Inhalation, Every 4 hours PRN amLODIPine (NORVASC) 5 mg, Oral, Daily aspirin 81 MG chewable tablet Daily atovaquone (MEPRON) 1,500 mg, Oral, Daily cholecalciferol (VITAMIN D-3) 4,000 Units, Oral, Daily citalopram (CELEXA) 20 mg, Oral, Daily ezetimibe (ZETIA) 10 mg, Oral, Daily Finerenone (Kerendia) 10 MG tablet 1 tablet, Oral, Daily fluticasone (Cutivate) 0.05 % cream Topical, Daily PRN fluticasone (Flonase) 50 MCG/ACT nasal spray 1 spray, Each Nostril, Daily, Shake gently. Before first use, prime pump. After use, clean tip and replace cap. Jentadueto XR 2.5-1000 MG per 24 hr tablet take 2 tablets by mouth once daily lansoprazole (Prevacid) [address] capsule 1 capsule, Daily losartan (Cozaar) 100 MG tablet losartan 100 mg tablet metoprolol tartrate (Lopressor) 25 MG tablet metoprolol tartrate 25 mg tablet predniSONE (DELTASONE) 20 mg, Oral, Daily, Take 2 tablets (20mg) daily x 4 weeks, then 1 tablet (10mg) daily x 4 weeks rosuvastatin (Crestor) 10 MG tablet Daily tiotropium (Spiriva Respimat) 2.5 MCG/ACT inhaler 2 puffs, Inhalation, Daily Vascepa 1 g capsule TAKE 2 CAPSULES BY MOUTH 2 TIMES DAILY Objective: Physical Examination: BP (!) 146/81 (Patient Position: Lying) Pulse (!) 125 Temp 36.6 C (97.8 F) (Oral) Resp 18 Ht 5' 7 (1.702 m) Wt 150 lb (68 kg) SpO2 98% BMI 23.49 kg/m No intake or output data in the 24 hours ending 01/19/241921 Physical Exam Constitutional: General: She is not in acute distress. Appearance: She is obese. She is not ill-appearing. HENT: Mouth/Throat: Mouth: Mucous membranes are moist. Cardiovascular: Rate and Rhythm: Tachycardia present. Rhythm irregular. Pulses: Normal pulses. Heart sounds: No murmur heard. Pulmonary: Effort: Pulmonary effort is normal. No respiratory distress. Breath sounds: Rales present. Chest: Chest wall: No tenderness. Abdominal: General: There is distension (mild). Tenderness: There is abdominal tenderness (RLQ on palpation). There is no right CVA tenderness, left CVA tenderness, guarding or rebound. Musculoskeletal: General: Normal range of motion. Right lower leg: No edema. Left lower leg: No edema. Comments: Slightly cold lower extremities on exam, pulses intact Skin: General: Skin is warm and dry. Neurological: Mental Status: She is oriented to person, place, and time. Laboratory Tests: BMP: Lab Results Component Value Date NA 130 (L) 01/19/2024 K 4.9 01/19/2024 CL 97 (L) 01/19/2024 CO2 19 (L) 01/19/2024 BUN 28 (H) 01/19/2024 CREATININE 0.95 01/19/2024 GLUCOSE 137 (H) 01/19/2024 CALCIUM 8.7 01/19/2024 CBC: Lab Results Component Value Date WBC 10.1 01/19/2024 HGB 11.8 01/19/2024 HCT 33.8 (L) 01/19/2024 MCV 93.6 01/19/2024 PLT 226 01/19/2024 Cardiac profile: Lab Results Component Value Date BNP 6,800 (H) 01/19/2024 TROPONINI 0.026 01/19/2024 TROPONINI 0.021 01/19/2024 Coagulation: Lab Results Component Value Date PROTIME 10.7 10/05/2023 INR 1.0 10/05/2023 Lipid panel: Lab Results Component Value Date CHOL 149 06/14/2020 HDL 45 06/14/2020 TRIG 265 (A) 06/14/2020 Other: Lab Results Component Value Date TSH 1.13 12/03/2022 Chest Imaging: CXR: === 01/19/24 === XR CHEST 1 VIEW - Impression - 1. New right pleural effusion. Opacity projecting over the lower 1/2 right lung. 2. 2.7 x 2.2 cm nodular density overlying the mid left lung, which is new compared to the prior exam. Report Dictated on Electronically Signed By: Amanuel Rosas MD Electronically Signed Date/Time: 01/19/2024 12:[address] Chest wo contrast: === 01/19/24 === CT CHEST ANGIOGRAM W AND/OR WO IV CONTRAST - Impression - 1. No pulmonary embolus identified. 2. Interlobular septal thickening and groundglass opacities compatible with pulmonary edema. Bilateral infiltrates could be due to alveolar edema or infection; recommend imaging follow-up to ensure resolution. 3. Bilateral pleural effusions, larger on the right. 4. Atherosclerotic disease with coronary artery calcifications. 5. Multiple small incidental lung nodules, not requiring follow-up given their small size*. *2017 - UPDATED [employer] GUIDELINES FOR MANAGEMENT OF SMALL PULMONARY NODULES DETECTED ONCT Note: Recommendations do not apply for lung cancer screening, patients with immunosuppression or with known cancer. Dimensions are average of long and short axis rounded to the millimeter MULTIPLE NODULES: LOW RISK PATIENT (Use most suspicious nodule to manage guidelines) All <6mm - No follow up Any >6mm - 3-6 months, then consider 18-24 months MULTIPLE NODULES: HIGH RISK PATIENT (Use most suspicious nodule to manage guidelines) All <6mm - No follow up Any >6mm - 3-6 months, then 18-24 months Report Dictated on Electronically Signed By: Deven Mendoza MD Electronically Signed Date/Time: 01/19/2024 3:28 PM EDT CTA Chest w and wo contrast: === 01/19/24 === CT CHEST ANGIOGRAM W AND/OR WO IV CONTRAST - Impression - 1. No pulmonary embolus identified. 2. Interlobular septal thickening and groundglass opacities compatible with pulmonary edema. Bilateral infiltrates could be due to alveolar edema or infection; recommend imaging follow-up to ensure resolution. 3. Bilateral pleural effusions, larger on the right. 4. Atherosclerotic disease with coronary artery calcifications. 5. Multiple small incidental lung nodules, not requiring follow-up given their small size*. *2017 - UPDATED [employer] GUID[employer]INES FOR MANAGEMENT OF SMALL PULMONARY NODULES DETECTED ONCT Note: Recommendations do not apply for lung cancer screening, patients with immunosuppression or with known cancer. Dimensions are average of long and short axis rounded to the millimeter MULTIPLE NODULES: LOW RISK PATIENT (Use most suspicious nodule to manage guidelines) All <6mm - No follow up Any >6mm - 3-6 months, then consider 18-24 months MULTIPLE NODULES: HIGH RISK PATIENT (Use most suspicious nodule to manage guidelines) All <6mm - No follow up Any >6mm - 3-6 months, then 18-24 months Report Dictated on Electronically Signed By: Deven Mendoza MD Electronically Signed Date/Time: 01/19/2024 3:28 PM EDT Cardiac Studies: Telemetry findings: afib with RVR Last EK01/19/24 ECG 12-LEAD 01/19/2024 6:24 PM (Final) Impression Atrial fibrillation with rapid V-rate Anteroseptal infarct, age indeterminate Electronically Signed On 01-19-2024 18:24:56 EDT by Luís Hayes Signed by: Luís Hayes MD on 01/19/2024 6:24 PM Last Echo: 09/18/22 TRANSTHORACIC ECHOCARDIOGRAM (TTE) COMPLETE (CONTRAST/BUBBLE/3D PRN) 09/18/2022 3:25 PM (Final) Interpretation Summary Left Ventricle: Left ventricle is smaller than normal. Normal wall thickness. Ventricular mass is less than normal. Normal left ventricular systolic function. The EF by visual approximation is 65%. EF by 2D Simpsons Biplane is 70%. Normal wall motion. Diastolic dysfunction present with normal LVEF.E/A ratio is 1.17. Average E/e' ratio is 26.04. Right Ventricle: Right ventricle size is normal. Normal systolic function. TAPSE is normal. Pulmonary Arteries: Unable to assess RVSP due to limited technical data. No significant valvular abnormalities. Signed by: Manjit Ramirez MD on 09/18/2022 3:25 PM Last Cath: No results found for this or any previous visit. Last Stress Test: No results found for this or any previous visit. Last EP study: No results found for this or any previous visit. Assessment/Plan #Lactic acidosis #Likely cardiogenic shock - elevated to 2.9, concern for borderline cardiogenic shock, some component of decreased perfusion with afib but patient mildly cold extremities on exam, stable overall despite tachycardia, treatmentas above - trend lactic acid #Afib with RVR #Chest pain #Fatigue - presented in afib with RVR with rates up to 150, no previous history - troponin negative x2, no concern for ischemia on EKG - start eliquis tonight 5mg BID - loading with digoxin tonight 500 > 250 > 250 - plan for DMITRY with potential cardioversion tomorrow - NPO #Acute decompensated HF #Pulmonary edema - in setting of new afib, likely over past several months - received IV lasix in ED with minimal urine output - consider additional lasix through tonight pending status - had normal EF on TTE 10/09 but did have diastolic dysfunction - start nipride drip, titrated to map 70-75 - strict I/O - Daily standing weight #HTN - given need for potential diuresis and starting patient on nipride infusion will hold home meds asbelow for now - holding home amlodipine 5mg daily - holding home losartan 100mg daily - holding home lopressor 25mg daily #HLD - continued home crestor - holding home ezetimibe - holding home vascepa #COPD #Recent hx EBUS complicated by pneumothorax, possibly organizing pneumonia #Former smoker #Lung nodules? - quit smoking over 30 years ago, wouldn't qualify for LD lung CT screening - initial CXR with lung nodule not seen on previous exams but CTA did now show any significant nodules? Consider following up for confirmation in setting of unintentional weight loss and smoking history. Following with Pulm for pet-avid nodules now - continuing home spiriva - continuing long-term prednisone taper for now per Dr. Bhatia's outpatient management > now on10mg daily #T2DM - A1C 7.7 last month - will order correction insulin if necessary during admit but patient currently NPO, was not on insulin outpatient - holding home jentadueto, finerenone for now #Anxiety and Depression - continued home Celexa 20mg daily #GERD - on home PPI, ordered protonix daily while admitted - Goals of Care: Prior - DVT Prophylaxis: Eliquis > being initiated tonight 5MG BID - GI Prophylaxis: Protonix daily - Diet: NPO for likely DMITRY cardioversion tomorrow - BMI Classification: Body mass index is 23.49 kg/m . - Disposition: Admit to CCU. Associated attestation - Ashley, Manjit Banda MD - 01/20/2024 9:32 AM EDT I, Dr. Manjit Ramirez, saw and evaluated the patient on 01/20/24. I personally obtained the castillo and critical portions of the history and physical exam. I reviewed the labs, imaging studies, and electronic medical record. I reviewed the Floriculturist's documentation, and discussed the patient with the Floriculturist. I agree with the Floriculturist's medical decision making and have edited the note to reflect my clinical findings and my assessment and plan. In summary, Ms. Peters 79-year-old woman with a history of breast cancer, tobacco abuse, COPD, hypertension, who presented to [facility] after she went to her PCPs office for generalized weakness and shortness of breath. She was sent to the ED, and was found to be in shock with a lactate of nearly 3 with a suggestion of cardiogenic shock, with atrial fibrillation with RVR, and a bedside echocardiogram suggesting reduced ejection fraction. A CTA of the chest showed no pulmonary embolism, but did show GGO's consistent with pulmonary edema and small incidental lung nodules. She did not have acute kidney injury, but did have acute liver injury with mildly elevated transaminases and bili denton. She was placed on sodium nitroprusside last night, and lactate improved. On physical exam this morning, she appears euvolemic, but on sodium nitroprusside. 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 We will investigate what chemotherapy she received for her breast cancer, and make sure this was not doxorubicin which would change the differential. Today we will have her undergo DMITRY cardioversion, have her undergo formal echocardiogram, and will have her undergo a right heart catheterization. After the right heart cath, which should be on kody [place], we will down titrate nitroprusside and replace this with oral medications. Finally, we will decide on antiarrhythmic therapy after cardiogenic shock is resolved. A total of 40 minutes were spent with the patient providing critical care as detailed. This patientrequires critical care because of the imminent threat of deterioration and/or secondary to impairment of the cardiovascular system. Manjit Ramirez MD, PhD Advanced Heart Failure Cardiology [facility]. [facility] [place] 9:32 AM 01/20/24 [id number] History and physical note* Satya Mcmahon MD - 01/19/2024 7:22 PM EDT Images from the original note were not included. 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 female with PMH BL breast cancer s/p mastectomy and chemo, former smoker,asthma, emphysema, HTN, GERD, HLD, anxiety/depression that presented to [facility] on 01/19/2024 from PCP office for generalized weakness and SOB. Patient had been getting progressively more fatigued for pastseveral weeks. With intermittent primarily right sided abdominal pain. In the ED vitals significant for pulse 160, BP 145/111 and patient initially on RA but intermittently requiring 4L NC and temporarily a bipap Labs with ABGs showing PH 7.23, pco2 29.6, p02 145.5, HCO3 12.3. Glucose 137. AST 65, ALT 84. T. Bili 2.1. Troponin negative x2. BNP 6800. Lactic acid 2.9. HGB 11. UA with protein and LE. CXR with new right pleural effusion and nodular density over mid left lung new compared to prior exam. CT Abdomen pelvis w contrast Interstitial pulmonary edema and pleural effusions bilaterally andbilateral infiltrates. Gallbladder edema and pericholecystic fluid suspicious for cholecystitis butless specific in the setting of volume overload. CT chest angio with no PE, aherosclerotic disease w ith coronary artery calcifications. In ED, treated with metoprolol tartrate 5mg then 25 mg doses, lasix 80, a 500ml bolus, and dose of epinephrine and benadryl with temporary concern for reaction to contrast with imaging with hives andSOB. CCU called for eval. When seen patient reported same history as above. Now on `4L NC. States she has been feeling unwellfor about 3 months with an episode of syncope in grocery store ~3mths ago. Increasing SOB with ambulation. Denies nausea, vomiting, fevers or chills. Noted weight loss of ~60lbs over past ~6 months with unclear cause. Tolerating PO intake without issue. Mild abdominal pain mainly RLQ. Has not established with Cardiology before this. Compliant with home meds. Former 1.5ppd smoker who quit years ago. No other new concerns noted. Review of Systems: Review of Systems Constitutional: Positive for activity change, fatigue and unexpected weight change. Negative for appetite change, chills and fever. Respiratory: Positive for shortness of breath. Negative for cough and wheezing. Cardiovascular: Negative for chest pain, palpitations and leg swelling. Gastrointestinal: Positive for abdominal pain (RLQ). Negative for abdominal distention, diarrhea, nausea and vomiting. Genitourinary: Negative for difficulty urinating and dysuria. Musculoskeletal: Negative for arthralgias and myalgias. Neurological: Negative for dizziness and weakness. Past Medical History: Past Medical History: Diagnosis Date Arthritis Asthma Breast cancer (HCC) 1993 Right Breast(Mastectomy) Breast cancer (HCC) 2010 Left Breast(Simple Mastectomy, SLND) Chronic kidney disease Diabetes (HCC) GERD (gastroesophageal reflux disease) High blood pressure Occlusion and stenosis of unspecified carotid artery Pure hypercholesterolemia Syncope and collapse 08/29/2022 Past Surgical History: Past Surgical History: Procedure Laterality Date CAROTID ENDARTERECTOMY Right 2008 CATARACT EXTRACTION Bilateral 2006 CHEST TUBE INSERTION Right 10/05/2023 ENDOBRONCHIAL ULTRASOUND EBUS (HISTORICAL) 10/05/2023 MASTECTOMY Left 2010 simple/reconstruction/gingivagrapht MASTECTOMY Right 1993 reconstruction (TRAM) TOTAL ABDOMINAL HYSTERECTOMY W/ BILATERAL SALPINGOOPHORECTOMY 1998 TUBAL LIGATION 1979 Family History: Family History Problem Relation Name Age of Onset Ovarian cancer Mother 66 Heart attack Father Baljeet 76 High Blood Pressure Father Baljeet Macular degeneration Father Baljeet Ovarian cancer Mother's Sister 45 Other ([id number]) Son neuofibromatosis, BRCA1 positive Neurofibromatosis Son High Blood Pressure Son Cancer Son hairy cell leukemia Breast cancer Cousin 42 +brca Bladder Cancer Cousin 19 Social History: Social History Tobacco Use Smoking status: Former Packs/day: 1.50 Years: 20.00 Additional pack years: 0.00 Total pack years: 30.00 Types: Cigarettes Quit date: 06/12/1991 Years since quittin.6 Smokeless tobacco: Never 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: , 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[facility], 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, 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 Vaping Use Vaping Use: Never used Substance Use Topics Alcohol use: Yes Alcohol/week: 0.0 - 14.0 standard drinks of alcohol Comment: occ Drug use: No Allergies: Allergies Allergen Reactions Isosulfan Blue Anaphylaxis Methylene Blue Sulfa Antibiotics Rash Medications: Current Outpatient Medications Medication Instructions albuterol (Ventolin HFA) 108 (90 Base) MCG/ACT inhaler 2 puffs, Inhalation, Every 4 hours PRN amLODIPine (NORVASC) 5 mg, Oral, Daily aspirin 81 MG chewable tablet Daily atovaquone (MEPRON) 1,500 mg, Oral, Daily cholecalciferol (VITAMIN D-3) 4,000 Units, Oral, Daily citalopram (CELEXA) 20 mg, Oral, Daily ezetimibe (ZETIA) 10 mg, Oral, Daily Finerenone (Kerendia) 10 MG tablet 1 tablet, Oral, Daily fluticasone (Cutivate) 0.05 % cream Topical, Daily PRN fluticasone (Flonase) 50 MCG/ACT nasal spray 1 spray, Each Nostril, Daily, Shake gently. Before first use, prime pump. After use, clean tip and replace cap. Jentadueto XR 2.5-1000 MG per 24 hr tablet take 2 tablets by mouth once daily lansoprazole (Prevacid) [address] capsule 1 capsule, Daily losartan (Cozaar) 100 MG tablet losartan 100 mg tablet metoprolol tartrate (Lopressor) 25 MG tablet metoprolol tartrate 25 mg tablet predniSONE (DELTASONE) 20 mg, Oral, Daily, Take 2 tablets (20mg) daily x 4 weeks, then 1 tablet (10mg) daily x 4 weeks rosuvastatin (Crestor) 10 MG tablet Daily tiotropium (Spiriva Respimat) 2.5 MCG/ACT inhaler 2 puffs, Inhalation, Daily Vascepa 1 g capsule TAKE 2 CAPSULES BY MOUTH 2 TIMES DAILY Objective: Physical Examination: BP (!) 146/81 (Patient Position: Lying) Pulse (!) 125 Temp 36.6 C (97.8 F) (Oral) Resp 18 Ht 5' 7 (1.702 m) Wt 150 lb (68 kg) SpO2 98% BMI 23.49 kg/m No intake or output data in the 24 hours ending 01/19/241921 Physical Exam Constitutional: General: She is not in acute distress. Appearance: She is obese. She is not ill-appearing. HENT: Mouth/Throat: Mouth: Mucous membranes are moist. Cardiovascular: Rate and Rhythm: Tachycardia present. Rhythm irregular. Pulses: Normal pulses. Heart sounds: No murmur heard. Pulmonary: Effort: Pulmonary effort is normal. No respiratory distress. Breath sounds: Rales present. Chest: Chest wall: No tenderness. Abdominal: General: There is distension (mild). Tenderness: There is abdominal tenderness (RLQ on palpation). There is no right CVA tenderness, left CVA tenderness, guarding or rebound. Musculoskeletal: General: Normal range of motion. Right lower leg: No edema. Left lower leg: No edema. Comments: Slightly cold lower extremities on exam, pulses intact Skin: General: Skin is warm and dry. Neurological: Mental Status: She is oriented to person, place, and time. Laboratory Tests: BMP: Lab Results Component Value Date NA 130 (L) 01/19/2024 K 4.9 01/19/2024 CL 97 (L) 01/19/2024 CO2 19 (L) 01/19/2024 BUN 28 (H) 01/19/2024 CREATININE 0.95 01/19/2024 GLUCOSE 137 (H) 01/19/2024 CALCIUM 8.7 01/19/2024 CBC: Lab Results Component Value Date WBC 10.1 01/19/2024 HGB 11.8 01/19/2024 HCT 33.8 (L) 01/19/2024 MCV 93.6 01/19/2024 PLT 226 01/19/2024 Cardiac profile: Lab Results Component Value Date BNP 6,800 (H) 01/19/2024 TROPONINI 0.026 01/19/2024 TROPONINI 0.021 01/19/2024 Coagulation: Lab Results Component Value Date PROTIME 10.7 10/05/2023 INR 1.0 10/05/2023 Lipid panel: Lab Results Component Value Date CHOL 149 06/14/2020 HDL 45 06/14/2020 TRIG 265 (A) 06/14/2020 Other: Lab Results Component Value Date TSH 1.13 12/03/2022 Chest Imaging: CXR: === 01/19/24 === XR CHEST 1 VIEW - Impression - 1. New right pleural effusion. Opacity projecting over the lower 1/2 right lung. 2. 2.7 x 2.2 cm nodular density overlying the mid left lung, which is new compared to the prior exam. Report Dictated on Electronically Signed By: Amanuel Rosas MD Electronically Signed Date/Time: 01/19/2024 12:[address] Chest wo contrast: === 01/19/24 === CT CHEST ANGIOGRAM W AND/OR WO IV CONTRAST - Impression - 1. No pulmonary embolus identified. 2. Interlobular septal thickening and groundglass opacities compatible with pulmonary edema. Bilateral infiltrates could be due to alveolar edema or infection; recommend imaging follow-up to ensure resolution. 3. Bilateral pleural effusions, larger on the right. 4. Atherosclerotic disease with coronary artery calcifications. 5. Multiple small incidental lung nodules, not requiring follow-up given their small size*. *2017 - UPDATED [employer] GUIDELINES FOR MANAGEMENT OF SMALL PULMONARY NODULES DETECTED ONCT Note: Recommendations do not apply for lung cancer screening, patients with immunosuppression or with known cancer. Dimensions are average of long and short axis rounded to the millimeter MULTIPLE NODULES: LOW RISK PATIENT (Use most suspicious nodule to manage guidelines) All <6mm - No follow up Any >6mm - 3-6 months, then consider 18-24 months MULTIPLE NODULES: HIGH RISK PATIENT (Use most suspicious nodule to manage guidelines) All <6mm - No follow up Any >6mm - 3-6 months, then 18-24 months Report Dictated on Electronically Signed By: Deven Mendoza MD Electronically Signed Date/Time: 01/19/2024 3:28 PM EDT CTA Chest w and wo contrast: === 01/19/24 === CT CHEST ANGIOGRAM W AND/OR WO IV CONTRAST - Impression - 1. No pulmonary embolus identified. 2. Interlobular septal thickening and groundglass opacities compatible with pulmonary edema. Bilateral infiltrates could be due to alveolar edema or infection; recommend imaging follow-up to ensure resolution. 3. Bilateral pleural effusions, larger on the right. 4. Atherosclerotic disease with coronary artery calcifications. 5. Multiple small incidental lung nodules, not requiring follow-up given their small size*. *2017 - UPDATED [employer] GUIDELINES FOR MANAGEMENT OF SMALL PULMONARY NODULES DETECTED ONCT Note: Recommendations do not apply for lung cancer screening, patients with immunosuppression or with known cancer. Dimensions are average of long and short axis rounded to the millimeter MULTIPLE NODULES: LOW RISK PATIENT (Use most suspicious nodule to manage guidelines) All <6mm - No follow up Any >6mm - 3-6 months, then consider 18-24 months MULTIPLE NODULES: HIGH RISK PATIENT (Use most suspicious nodule to manage guidelines) All <6mm - No follow up Any >6mm - 3-6 months, then 18-24 months Report Dictated on Electronically Signed By: Deven Mendoza MD Electronically Signed Date/Time: 01/19/2024 3:28 PM EDT Cardiac Studies: Telemetry findings: afib with RVR Last EK01/19/24 ECG 12-LEAD 01/19/2024 6:24 PM (Final) Impression Atrial fibrillation with rapid V-rate Anteroseptal infarct, age indeterminate Electronically Signed On 01-19-2024 18:24:56 EDT by Luís Hayes Signed by: Luís Hayes MD on 01/19/2024 6:24 PM Last Echo: 09/18/22 TRANSTHORACIC ECHOCARDIOGRAM (TTE) COMPLETE (CONTRAST/BUBBLE/3D PRN) 09/18/2022 3:25 PM (Final) Interpretation Summary Left Ventricle: Left ventricle is smaller than normal. Normal wall thickness. Ventricular mass is less than normal. Normal left ventricular systolic function. The EF by visual approximation is 65%. EF by 2D Simpsons Biplane is 70%. Normal wall motion. Diastolic dysfunction present with normal LVEF.E/A ratio is 1.17. Average E/e' ratio is 26.04. Right Ventricle: Right ventricle size is normal. Normal systolic function. TAPSE is normal. Pulmonary Arteries: Unable to assess RVSP due to limited technical data. No significant valvular abnormalities. Signed by: Manjit Ramirez MD on 09/18/2022 3:25 PM Last Cath: No results found for this or any previous visit. Last Stress Test: No results found for this or any previous visit. Last EP study: No results found for this or any previous visit. Assessment/Plan #Lactic acidosis #Likely cardiogenic shock - elevated to 2.9, concern for borderline cardiogenic shock, some component of decreased perfusion with afib but patient mildly cold extremities on exam, stable overall despite tachycardia, treatmentas above - trend lactic acid #Afib with RVR #Chest pain #Fatigue - presented in afib with RVR with rates up to 150, no previous history - troponin negative x2, no concern for ischemia on EKG - start eliquis tonight 5mg BID - loading with digoxin tonight 500 > 250 > 250 - plan for DMITRY with potential cardioversion tomorrow - NPO #Acute decompensated HF #Pulmonary edema - in setting of new afib, likely over past several months - received IV lasix in ED with minimal urine output - consider additional lasix through tonight pending status - had normal EF on TTE 10/09 but did have diastolic dysfunction - start nipride drip, titrated to map 70-75 - strict I/O - Daily standing weight #HTN - given need for potential diuresis and starting patient on nipride infusion will hold home meds asbelow for now - holding home amlodipine 5mg daily - holding home losartan 100mg daily - holding home lopressor 25mg daily #HLD - continued home crestor - holding home ezetimibe - holding home vascepa #COPD #Recent hx EBUS complicated by pneumothorax, possibly organizing pneumonia #Former smoker #Lung nodules? - quit smoking over 30 years ago, wouldn't qualify for LD lung CT screening - initial CXR with lung nodule not seen on previous exams but CTA did now show any significant nodules? Consider following up for confirmation in setting of unintentional weight loss and smoking history. Following with Pulm for pet-avid nodules now - continuing home spiriva - continuing long-term prednisone taper for now per Dr. Bhatia's outpatient management > now on10mg daily #T2DM - A1C 7.7 last month - will order correction insulin if necessary during admit but patient currently NPO, was not on insulin outpatient - holding home jentadueto, finerenone for now #Anxiety and Depression - continued home Celexa 20mg daily #GERD - on home PPI, ordered protonix daily while admitted - Goals of Care: Prior - DVT Prophylaxis: Eliquis > being initiated tonight 5MG BID - GI Prophylaxis: Protonix daily - Diet: NPO for likely DMITRY cardioversion tomorrow - BMI Classification: Body mass index is 23.49 kg/m . - Disposition: Admit to CCU. Associated attestation - Manjit Ramirez MD - 01/20/2024 9:32 AM EDT I, Dr. Manjit Ramirez, saw and evaluated the patient on 01/20/24. I personally obtained the castillo and critical portions of the history and physical exam. I reviewed the labs, imaging studies, and electronic medical record. I reviewed the Floriculturist's documentation, and discussed the patient with the Floriculturist. I agree with the Floriculturist's medical decision making and have edited the note to reflect my clinical findings and my assessment and plan. In summary, Ms. Peters 79-year-old woman with a history of breast cancer, tobacco abuse, COPD, hypertension, who presented to [facility] after she went to her PCPs office for generalized weakness and shortness of breath. She was sent to the ED, and was found to be in shock with a lactate of nearly 3 with a suggestion of cardiogenic shock, with atrial fibrillation with RVR, and a bedside echocardiogram suggesting reduced ejection fraction. A CTA of the chest showed no pulmonary embolism, but did show GGO's consistent with pulmonary edema and small incidental lung nodules. She did not have acute kidney injury, but did have acute liver injury with mildly elevated transaminases and bili denton. She was placed on sodium nitroprusside last night, and lactate improved. On physical exam this morning, she appears euvolemic, but on sodium nitroprusside. 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 We will investigate what chemotherapy she received for her breast cancer, and make sure this was not doxorubicin which would change the differential. Today we will have her undergo DMITRY cardioversion, have her undergo formal echocardiogram, and will have her undergo a right heart catheterization. After the right heart cath, which should be on kody Lancaster, we will down titrate nitroprusside and replace this with oral medications. Finally, we will decide on antiarrhythmic therapy after cardiogenic shock is resolved. A total of 40 minutes were spent with the patient providing critical care as detailed. This patientrequires critical care because of the imminent threat of deterioration and/or secondary to impairment of the cardiovascular system. Majnit Ramirez MD, PhD Advanced Heart Failure Cardiology [facility]. Heart [facility] V[facility] [place] 9:32 AM 01/20/24 documented in this [facility]06-04-2024 Emergency department Note* Jaqueline Shannon RN - 01/19/2024 6:30 PM EDT Pure wick changed and new chux pad placed underneath Jaqueline Shannon RN 01/19/24 1830 [id number] Emergency department Note* Jaqueline Shannon RN - 01/19/2024 5:41 PM EDT Pt placed on 3L due to sat at 90%. Pt sat 98%. Jaqueline Shannon RN 01/19/24 1741 [facility] [id number] Emergency department Note* Jaqueline Shannon RN - 01/19/2024 5:17 PM EDT Pt is off of bipap. Sat 100% on RA. Jaqueline Shannon RN 01/19/24 1718 [facility] [id number] Emergency department Note* Jaqueline Shannon RN - 01/19/2024 5:09 PM EDT Pt to be trialed off of bipap by respiratory Jaqueline Shannon RN 01/19/24 1710 [id number] Emergency department Note* Jaqueline Shannon RN - 01/19/2024 4:43 PM EDT Cardiology at bedside Jaqueline Shannon RN 01/19/24 1643 [facility] [id number] Emergency department Note* Jaqueline Shannon RN - 01/19/2024 3:56 PM EDT Pt states that she is able to breathe better now. Pt remains on bipap and her skin is less mottled. Jaqueline Shannon RN 01/19/24 1557 [id number] Emergency department Note* Jaqueline Shannon RN - 01/19/2024 3:37 PM EDT Lasix given to patient. Pure wick put in place. Jaqueline Shannon RN 01/19/24 1537 [id number] Emergency department Note* Jaqueline Shannon RN - 01/19/2024 3:15 PM EDT Pt placed on bipap per Dr. Harris. Jaqueline Shannon RN 01/19/24 1516 [id number] Emergency department Note* Jaqueline Shannon RN - 01/19/2024 3:04 PM EDT Pt given 0.3 mL of epi per Dr. Harris due to hives and Sob after returning from CT. Jaqueline Shannon RN 01/19/24 1505 [id number] Emergency department Note* Fay Grover RN - 01/19/2024 2:37 PM EDT Pt came back from her CTA restless and stated difficulty breathing. Pt was 87 on RA and placed on aNC at 4L and came back up to 96. Dr Christensen notified and assessed pt and ordered benadryl. Fay Grover RN 01/19/24 7529 [facility] CenterNmafmj16-98-1512 Emergency department Note* Fay Grover RN - 01/19/2024 1:32 PM EDT Pt back from CT Fay Grover RN 01/19/24 1333 [facility] [id number] Emergency department Note* Fay Grover RN - 01/19/2024 1:19 PM EDT Pt to CT via cart Fay Grover RN 01/19/24 1320 [facility] [id number] Physician Emergency department Note* Cinthya Christensen MD - 01/19/2024 12:03 PM EDT EMERGENCY DEPARTMENT ENCOUNTER Pt Name: Rolando Peters Birthdate 1945 Date of evaluation: 01/19/2024 ED Provider: Cinthya Christensen MD CHIEF COMPLAINT Chief Complaint Patient presents with Weakness, Gen Pt brought in by EMS from Dr. Richards. Pt states having weakness and shortness of breath for past 2-3weeks. EMS states they did an EKG and found that pt is in Afib with RVR 120 to 150 beats a min. Pt states on and off chest pain. Chest Pain HISTORY OF PRESENT ILLNESS (Location/Symptom, Timing/Onset, Context/Setting, Quality, Duration, Modifying Factors, Severity) Note limiting factors. I wore appropriate PPE for the entirety of this encounter. HPI Rolando Peters is a 79 y.o. who presents to the emergency department for weakness, shortness of breath, palpitations for the past 2 to 3 weeks. Also endorses intermittent chest pain when she feels the palpitations. Has no history of A-fib or SVT, however, does have history of cancer. Not on anticoagulation. Also endorses right upper quadrant abdominal pain that she feels radiates down to her groin.Is being treated for pneumonia as well with outpatient antibiotics. No fever, chills, nausea, vomiting, diarrhea. Nursing Notes were reviewed. Limitations to history: None Outside historians: None REVIEW OF SYSTEMS Review of Systems Pertinent positives and negatives as per HPI. PAST MEDICAL HISTORY Past Medical History: Diagnosis Date Arthritis Asthma Breast cancer (HCC) 1993 Right Breast(Mastectomy) Breast cancer (HCC) 2010 Left Breast(Simple Mastectomy, SLND) Chronic kidney disease Diabetes (HCC) GERD (gastroesophageal reflux disease) High blood pressure Occlusion and stenosis of unspecified carotid artery Pure hypercholesterolemia Syncope and collapse 08/29/2022 SURGICAL HISTORY Past Surgical History: Procedure Laterality Date CAROTID ENDARTERECTOMY Right 2008 CATARACT EXTRACTION Bilateral 2006 CHEST TUBE INSERTION Right 10/05/2023 ENDOBRONCHIAL ULTRASOUND EBUS (HISTORICAL) 10/05/2023 MASTECTOMY Left 2010 simple/reconstruction/gingivagrapht MASTECTOMY Right 1993 reconstruction (TRAM) TOTAL ABDOMINAL HYSTERECTOMY W/ BILATERAL SALPINGOOPHORECTOMY 1998 TUBAL LIGATION 1978 CURRENT MEDICATIONS Previous Medications ALBUTEROL (VENTOLIN HFA) 108 (90 BASE) MCG/ACT INHALER Inhale 2 puffs every 4 hours as needed for wheezing or shortness of breath. AMLODIPINE (NORVASC) 5 MG TABLET Take 5 mg by mouth daily. ASPIRIN 81 MG CHEWABLE TABLET daily. ATOVAQUONE (MEPRON) 750 MG/5ML SUSPENSION Take 10 mL (1,500 mg) by mouth daily. CHOLECALCIFEROL (VITAMIN D-3) 50 MCG (2000 UT) TABLET Take 4,000 Units by mouth daily. CITALOPRAM (CELEXA) 20 MG TABLET Take 20 mg by mouth daily. EZETIMIBE (ZETIA) 10 MG TABLET Take 1 tablet (10 mg) by mouth in the morning. FINERENONE (KERENDIA) 10 MG TABLET Take 1 tablet by mouth daily. FLUTICASONE (CUTIVATE) 0.05 % CREAM Apply topically Daily as needed (itching). FLUTICASONE (FLONASE) 50 MCG/ACT NASAL SPRAY Administer 1 spray into each nostril daily. Shake gently. Before first use, prime pump. After use, clean tip and replace cap. JENTADUETO XR 2.5-1000 MG PER 24 HR TABLET take 2 tablets by mouth once daily LANSOPRAZOLE (PREVACID) [address] CAPSULE 1 capsule in the morning. LOSARTAN (COZAAR) 100 MG TABLET losartan 100 mg tablet METOPROLOL TARTRATE (LOPRESSOR) 25 MG TABLET metoprolol tartrate 25 mg tablet PREDNISONE (DELTASONE) 10 MG TABLET Take 2 tablets (20 mg) by mouth daily. Take 2 tablets (20mg) daily x 4 weeks, then 1 tablet (10mg) daily x 4 weeks ROSUVASTATIN (CRESTOR) 10 MG TABLET daily. TIOTROPIUM (SPIRIVA RESPIMAT) 2.5 MCG/ACT INHALER Inhale 2 puffs daily. VASCEPA 1 G CAPSULE TAKE 2 CAPSULES BY MOUTH 2 TIMES DAILY ALLERGIES Isosulfan blue, Methylene blue, and Sulfa antibiotics FAMILY HISTORY Family History Problem Relation Name Age of Onset Ovarian cancer Mother 66 Heart attack Father Baljeet 76 High Blood Pressure Father Baljeet Macular degeneration Father Baljeet Ovarian cancer Mother's Sister 45 Other ([id number]) Son neuofibromatosis, BRCA1 positive Neurofibromatosis Son High Blood Pressure Son Cancer Son hairy cell leukemia Breast cancer Cousin 42 +brca Bladder Cancer Cousin 19 SOCIAL HISTORY Social History Socioeconomic History Marital status: Tobacco Use Smoking status: Former Packs/day: 1.50 Years: 20.00 Additional pack years: 0.00 Total pack years: 30.00 Types: Cigarettes Quit date: 06/12/1991 Years since quittin.6 Smokeless tobacco: Never 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: , 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[facility], 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, 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 Vaping Use Vaping Use: Never used Substance and Sexual Activity Alcohol use: Yes Alcohol/week: 0.0 - 14.0 standard drinks of alcohol Comment: occ Drug use: No Social Determinants of Health Intimate Partner Violence: Not At Risk (10/05/2023) Humiliation, Afraid, Rape, and Kick questionnaire Fear of Current or Ex-Partner: No Emotionally Abused: No Physically Abused: No Sexually Abused: No SCREENINGS PHYSICAL EXAM ED Triage Vitals [01/19/24 1210] Temp Heart Rate Resp BP 36.6 C (97.8 F) (!) 160 18 (!) 145/111 SpO2 Temp Source Heart Rate Source Patient Position 96 % Oral Monitor -- BP Location FiO2 (%) -- -- Physical Exam Vitals and nursing note reviewed. Constitutional: General: She is in acute distress. Appearance: She is well-developed. She is not ill-appearing. HENT: Head: Normocephalic and atraumatic. Eyes: Conjunctiva/sclera: Conjunctivae normal. Cardiovascular: Rate and Rhythm: Normal rate and regular rhythm. Heart sounds: No murmur heard. Pulmonary: Effort: Pulmonary effort is normal. No respiratory distress. Breath sounds: Normal breath sounds. No decreased breath sounds or wheezing. Abdominal: Palpations: Abdomen is soft. Tenderness: There is abdominal tenderness (Right upper quadrant). Musculoskeletal: General: No swelling. Cervical back: Neck supple. Right lower leg: No tenderness. No edema. Left lower leg: No tenderness. No edema. Skin: General: Skin is warm and dry. Capillary Refill: Capillary refill takes less than 2 seconds. Neurological: General: No focal deficit present. Mental Status: She is alert and oriented to person, place, and time. Psychiatric: Mood and Affect: Mood normal. DIAGNOSTIC RESULTS RADIOLOGY (Per Emergency Physician): Interpretation per the Radiologist below, if available at the time of this note: CT abdomen pelvis w contrast Final Result Interstitial pulmonary edema and pleural effusions. Gallbladder edema and pericholecystic fluid suspicious for cholecystitis but less specific in the setting of volume overload. Consider sonography after diuresis versus HIDA scan. Report Dictated on Electronically Signed By: Karolina Lincoln MD Electronically Signed Date/Time: 01/19/2024 2:23 PM EDT XR chest 1 view Final Result 1. New right pleural effusion. Opacity projecting over the lower 1/2 right lung. 2. 2.7 x 2.2 cm nodular density overlying the mid left lung, which is new compared to the prior exam. Report Dictated on Electronically Signed By: Amanuel Rosas MD Electronically Signed Date/Time: 01/19/2024 12:59 PM EDT CTA chest angiogram w and/or wo IV contrast (Results Pending) LABS: Labs Reviewed BASIC METABOLIC PANEL - Abnormal Result Value SODIUM 130 (*) POTASSIUM 4.9 CHLORIDE 97 (*) CARBON DIOXIDE 19 (*) UREA NITROGEN 28 (*) CREATININE 0.95 GLUCOSE 137 (*) CALCIUM 8.7 ANION GAP 13 eGFR 61.5 CBC WITH AUTO DIFFERENTIAL - Abnormal Auto WBC 10.1 RBC 3.61 (*) Hemoglobin 11.0 (*) Hematocrit 33.8 (*) MCV 93.6 MCH 30.5 MCHC 32.5 RDW 15.0 Platelets 226 MPV 10.3 nRBC 0.0 Neutrophils Relative 83.7 (*) Lymphocytes Relative 6.2 (*) Monocytes Relative 8.5 Eosinophils Relative 0.1 Basophils Relative 0.4 Immature Grans % 1.1 Neutrophils Absolute 8.5 (*) Lymphocytes Absolute 0.6 (*) Monocytes Absolute 0.9 Eosinophils Absolute 0.0 Basophils Absolute 0.0 Immature Grans Absolute 0.1 (*) HEPATIC FUNCTION PANEL - Abnormal BILIRUBIN, TOTAL 2.1 (*) BILIRUBIN, DIRECT 0.0 ALKALINE PHOSPHATASE 121 AST (SGOT) 65 (*) ALT 84 (*) ALBUMIN 4.0 TOTAL PROTEIN 6.5 NT PRO BNP - Abnormal NT PRO BNP 6,800 (*) BLOOD GAS ARTERIAL - Abnormal pH, Arterial 7.236 (*) pCO2, Arterial 29.6 (*) pO2, Arterial 145.5 (*) HCO3, Arterial 12.3 (*) O2 Sat, Arterial 97.9 Base Excess, Arterial -13.8 (*) CO2 Total 13.2 (*) Hgb, blood gas 11.8 Source Of Oxygen Non-rebreather mask TROPONIN, WITH SERIAL REFLEX - Normal TROPONIN I 0.021 Narrative: Patients with high levels of Biotin oral intake (ie >5 mg/day) may have falsely decreased Troponin levels. LIPASE - Normal LIPASE 83 COMPLETE URINALYSIS WITH REFLEX TO CULTURE Narrative: The following orders were created for panel order Complete Urinalysis with reflex to Culture. Procedure Abnormality Status --------- ------ Complete Urinalysis[[id number]] Please view results for these tests on the individual orders. COMPLETE URINALYSIS TROPONIN I TROPONIN I All other labs were within normal range or not returned as of this dictation. EMERGENCY DEPARTMENT COURSE and DIFFERENTIAL DIAGNOSIS/MDM: Vitals: Vitals: 01/19/24 1526 01/19/24 1527 01/19/24 1537 01/19/24 1557 BP: (!) 134/122 (!) 139/98 (!) 139/98 BP Location: Patient Position: Lying Lying Lying Pulse: (!) 136 (!) 140 (!) 150 (!) 116 Resp: (!) 27 18 18 Temp: TempSrc: SpO2: 100% 100% 100% 100% Weight: Height: The patient presented with a chief complaint of palpitations, shortness of breath. The differentialdiagnosis associated with this patient's presentation includes new onset A-fib RVR, SVT, MAT, pneumonia, cholecystitis, appendicitis, pneumonia, ACS, urinary stone, UTI, heart failure. Our workup consisted of ordering/reviewing CBC, BMP, LFTs, UA, troponin, lipase, BMP, EKG, CXR. EKG significant for A-fib RVR. Given small bolus of fluids and dose of Lopressor 5 mg IV which did not significantly affect her heart rate. Ordered another 2 doses as well as her home Lopressor 25 mg. Lab work showed no signs of infection or renal disease, however, note mild transaminitis and elevated T. bili. Bedside POCUS not reveal any stones or signs of cholecystitis. BNP elevated to 6800 likely in setting of weeks of A-fib RVR. Previous echo shows 65%. Troponin negative at 0.021. Given new heart failure and tachycardia, ordered CTA to evaluate for PE. Just prior to going to scanner, patient was feeling flushed. Reevaluated patient after coming back from CT, but no evidence of rash or increasing shortness of breath or wheezing. Treated with Benadryl 50 mg IV. On reevaluation again, patient not moving air very well, but slight wheezes. Not hypotensive, but given wheezing and mottled skin post contrast exposure, given dose of IM epi. Did not improve patient's clinical status and expect decompensation from initial illness. Patient subsequently started on DuoNebs, but was behaving obtunded. Not appear hypoxic, but given confusion ABG was obtained and patient put on NIV. Patient became more cooperative subsequently. ABG shows acidosis but with respiratory compensation. CTA pending read, however, significant pleural effusion and pulmonary edema without obvious evidence of PE. Ordered Lasix IV 80 mg. CCU consulted and pending evaluation, she will likely be admitted. Patient signed out to Dr. Ramirez. Please see his note for final disposition. ED Course as of 01/19/24 1608 ThuJan 19, 2024 123 EKG interpreted by me, atrial fibs versus a flutter with a variable block with RVR, rate 157, nonspecific ST-T changes [HH] 1459 Chest x-ray interpreted by me, pleural effusion on the right with questional infiltrate, nodular density on the left [HH] ED Course User Index [HH] Sandrine Harris DO Diagnoses as of 01/19/24 1608 Atrial fibrillation with RVR (HCC) Acute heart failure, unspecified heart failure type (HCC) ED Medications managed: Medications metoprolol tartrate (Lopressor) injection 5 mg (5 mg IntraVENous Given 01/19/24 1246) sodium chloride 0.9 % bolus 500 mL (0 mL IntraVENous Stopped 01/19/24 1346) metoprolol tartrate (Lopressor) tablet 25 mg (25 mg Oral Given 01/19/24 1332) metoprolol tartrate (Lopressor) injection 5 mg (5 mg IntraVENous Given 01/19/24 1402) iopamidol (Isovue-370) 76 % injection 75 mL (75 mL IntraVENous Given 01/19/24 1324) iopamidol (Isovue-370) 76 % injection 75 mL (75 mL IntraVENous Given 01/19/24 1427) diphenhydrAMINE (BENADryl) injection 50 mg (50 mg IntraVENous Given 01/19/24 1445) EPINEPHrine (Adrenalin) injection 0.3 mg (0.3 mg IntraMUSCular Given 01/19/24 1500) furosemide (Lasix) injection 80 mg (80 mg IntraVENous Given 01/19/24 1529) Prescription drugs considered: As above PROCEDURES: Unless otherwise noted below, none Procedures FINAL IMPRESSION 1. Atrial fibrillation with RVR (HCC) DISPOSITION Admit 01/19/2024 02:57:06 PM PATIENT REFERRED TO: No follow-up provider specified. DISCHARGE MEDICATIONS: New Prescriptions No medications on file (Comment: Please note this report has been produced using speech recognition software and may contain errors related to that system including errors in grammar, punctuation, and spelling, as well as words and phrases that may be inappropriate. If there are any questions or concerns please feel freeto contact the dictating provider for clarification.) Cinthya Christensen MD (electronically signed) Emergency Medicine Provider Cinthya Christensen MD Resident 01/19/24 1609 [id number] Physician Emergency department Note* Kingston Ramirez MD - 01/19/2024 12:03 PM EDT Emergency Department Encounter Location: [facility] CTV ICU T1 Patient: Rolando Peters : 1945 Date of evaluation: 01/19/2024 ED Provider: Kingston Ramirez MD 10:37 PM Rolando Peters was checked out to me by dr christensen. Please see his/her initial documentation for details of the patient's initial ED presentation, physical exam and completed studies. In brief, Rolando Peters is a 79 y.o. female that presented to the emergency department weakness chest pain shortness of breath. Found to be in A-fib RVR. Bilateral pleural effusions. Patient given Lasix was started in an IV and is pending CCU evaluation she was treated with 3 doses of metoprolol with some improvement in heart rate. Concern for CHF with cardiogenic shock I have reviewed and interpreted all of the currently available lab results and diagnostics from this visit: Vitals: 01/19/24 2130 01/19/24 2145 01/19/24 2200 01/19/24 2215 BP: 152/94 157/85 154/84 (!) 167/108 BP Location: Patient Position: Pulse: (!) 128 (!) 130 (!) 121 (!) 124 Resp: 17 18 20 23 Temp: TempSrc: SpO2: 97% 98% 97% 98% Weight: Height: Results for orders placed or performed during the hospital encounter of 01/19/24 Basic metabolic panel Result Value Ref Range SODIUM 130 (L) 135 - 145 mmol/L POTASSIUM 4.9 3.5 - 5.1 mmol/L CHLORIDE 97 (L) 98 - 107 mmol/L CARBON DIOXIDE 19 (L) 22 - 30 mmol/L UREA NITROGEN 28 (H) 7 - 17 mg/dL CREATININE 0.95 0.52 - 1.04 mg/dL GLUCOSE 137 (H) 70 - 100 mg/dL CALCIUM 8.7 8.4 - 10.4 mg/dL ANION GAP 13 3 - 13 mmol/L eGFR 61.5 >60.0 mL/min/1.73m*2 CBC auto differential Result Value Ref Range Auto WBC 10.1 3.6 - 10.7 10*3/uL RBC 3.61 (L) 3.80 - 5.20 10*6/uL Hemoglobin 11.0 (L) 11.7 - 16.0 g/dL Hematocrit 33.8 (L) 35.0 - 47.0 % MCV 93.6 77.0 - 99.0 fL MCH 30.5 26.0 - 34.0 pg MCHC 32.5 30.5 - 36.0 % RDW 15.0 11.5 - 15.0 % Platelets 226 140 - 440 10*3/uL MPV 10.3 9.0 - 12.7 fL nRBC 0.0 0.0 - 2.0 /100 WBCs Neutrophils Relative 83.7 (H) 38.0 - 82.0 % Lymphocytes Relative 6.2 (L) 15.0 - 45.0 % Monocytes Relative 8.5 5.0 - 13.0 % Eosinophils Relative 0.1 0.0 - 6.0 % Basophils Relative 0.4 0.0 - 2.0 % Immature Grans % 1.1 0.0 - 2.0 % Neutrophils Absolute 8.5 (H) 1.8 - 7.5 10*3/uL Lymphocytes Absolute 0.6 (L) 1.0 - 4.3 10*3/uL Monocytes Absolute 0.9 0.0 - 0.9 10*3/uL Eosinophils Absolute 0.0 0.0 - 0.5 10*3/uL Basophils Absolute 0.0 0.0 - 0.2 10*3/uL Immature Grans Absolute 0.1 (H) <0.1 10*3/uL Troponin, with Serial Reflex Result Value Ref Range TROPONIN I 0.021 <0.034 ng/mL Lipase Result Value Ref Range LIPASE 83 23 - 300 U/L Hepatic function panel Result Value Ref Range BILIRUBIN, TOTAL 2.1 (H) 0.2 - 1.3 mg/dL BILIRUBIN, DIRECT 0.0 0.0 - 0.3 mg/dL ALKALINE PHOSPHATASE 121 38 - 126 U/L AST (SGOT) 65 (H) 15 - 46 U/L ALT 84 (H) 0 - 34 U/L ALBUMIN 4.0 3.5 - 5.0 g/dL TOTAL PROTEIN 6.5 6.3 - 8.2 g/dL Complete Urinalysis Result Value Ref Range Color, Urine Colorless Lt. Yellow Clarity, Urine Clear Clear pH, Urine 5.5 5.0 - 8.0 pH Leukocytes, Urine 75 (A) Negative Tushar/uL Nitrite, Urine Negative Negative Protein, Urine 50 (A) Negative mg/dL Glucose, Urine Normal Normal (<70) mg/dL Bilirubin, Urine Negative Negative mg/dL Ketones, Urine Negative Negative mg/dL Urobilinogen, Urine Normal Normal (0-1) mg/dL Blood, Urine Negative Negative mg/dL RBC, Urine 0-2 0 - 2 /HPF WBC, Urine 0-2 0 - 5 /HPF Squamous Epithelial, Urine 0-2 3 - 5 /HPF Bacteria, Urine Negative Negative /HPF Hyaline Casts, Urine 0-2 (A) Negative /LPF SPECIFIC GRAVITY OF URINE (NUMERIC) 1.024 1.005 - 1.030 NT PRO BNP Result Value Ref Range NT PRO BNP 6,800 (H) <20 - 300 pg/mL Troponin I Result Value Ref Range TROPONIN I 0.026 <0.034 ng/mL Blood Gas, Arterial Result Value Ref Range pH, Arterial 7.236 (L) 7.350 - 7.450 pCO2, Arterial 29.6 (L) >35.0 - <45.0 mm Hg pO2, Arterial 145.5 (H) 80.0 - 100.0 mm Hg HCO3, Arterial 12.3 (L) 21.0 - 25.0 mmol/L O2 Sat, Arterial 97.9 95.0 - 100.0 % Base Excess, Arterial -13.8 (L) -3.0 - 3.0 mmol/L CO2 Total 13.2 (L) 23.0 - 27.0 mmol/L Hgb, blood gas 11.8 Screen only g/dl Source Of Oxygen Non-rebreather mask Lactic acid with reflex Result Value Ref Range LACTIC ACID 2.9 (H) 0.7 - 2.0 mmol/L Magnesium Result Value Ref Range MAGNESIUM 1.6 1.6 - 2.3 mg/dL Phosphorus Result Value Ref Range PHOSPHORUS 6.2 (H) 2.5 - 4.5 mg/dL ECG 12 lead Result Value Ref Range Heart Rate 157 bpm QRSD Interval 58 ms QT Interval 289 ms QTC Interval 466 ms P [place] 84 degrees QRS [place] 56 degrees T Wave [place] 106 degrees DE Interval 101 ms ECG 12 lead Result Value Ref Range Heart Rate 137 bpm QRSD Interval 62 ms QT Interval 278 ms QTC Interval 434 ms P [place] 0 degrees QRS [place] 66 degrees T Wave [place] 73 degrees DE Interval 0 ms @EDRISRSLT@ @[email or web address]@ Final ED Course and MDM: In brief, Rolando Peters is a 79 y.o. female whose care was signed out to me by the outgoing provider. In brief, patient continues require an IV on my evaluation CCU initially evaluated patient and trialed off of NIV she was able to tolerate being off NIV however she has an elevated lactate she appears to be in cardiogenic shock so she will be admitted to the CCU for further management ED Course as of 01/19/242236Jan 19, 2024 1233 EKG interpreted by me, atrial fibs versus a flutter with a variable block with RVR, rate 157, nonspecific ST-T changes [] 1459 Chest x-ray interpreted by me, pleural effusion on the right with questional infiltrate, nodular density on the left [HH] ED Course User Index [HH] Sandrine Harris DO Diagnoses as of 01/19/242236 Atrial fibrillation with RVR (HCC) Acute heart failure, unspecified heart failure type (HCC) Final Impression 1. Atrial fibrillation with RVR (HCC) 2. Acute heart failure, unspecified heart failure type (HCC) DISPOSITION DISPOSITION Admit 01/19/2024 07:02:46 PM PATIENT REFERRED TO: No follow-up provider specified. DISCHARGE MEDICATIONS: Current Discharge Medication List @[facility]([id number]:LAST:1)@ (Please note: Portions of this note were completed with a voice recognition program. Efforts were made to edit the dictations but occasionally words and phrases are mis-transcribed.) Form [id number] Kingston Ramirez MD Emergency Resident Physician Kingston Ramirez MD Resident 01/19/242237 [facility] Phone: [phone] 342-631406-04-2024 History of Present illness Narrative* Celia Al DO - 01/19/2024 10:00 AM EDT Subjective Patient ID: Rolando Peters is a 79 y.o. female who presents for patient complains of getting tired very easy (Feels like canker sores on the left side of tongue.) and Abdominal Pain (States that the pain is mainly in the morning; right side). Abdominal Pain Pertinent negatives include no arthralgias, fever or headaches. Patient reports she has been getting tired very easily. She also has had some right-sided abdominalpain in the morning. She explains that she feels like she has canker sores on the left side of her tongue as well. Right side felt like it was going to explode. Review of Systems Constitutional: Negative for activity change, appetite change, fatigue and fever. HENT: Positive for facial swelling. Negative for congestion, dental problem and drooling. Left sided swelling in neck Respiratory: Positive for shortness of breath. Negative for cough, choking and chest tightness. Cardiovascular: Negative for chest pain, palpitations and leg swelling. Gastrointestinal: Positive for abdominal pain. Musculoskeletal: Negative for arthralgias, back pain and gait problem. Skin: Negative for color change and pallor. Neurological: Negative for dizziness, facial asymmetry, light-headedness and headaches. Objective BP 117/70 (BP Location: Left arm, Patient Position: Sitting, BP Cuff Size: Adult) Pulse 78 Temp36.4 C (97.5 F) Resp 16 Wt 68 kg (150 lb) SpO2 94% BMI 23.49 kg/m BSA Body surface area is 1.79 meters squared. Physical Exam Constitutional: General: She is not in acute distress. Appearance: Normal appearance. She is not toxic-appearing. HENT: Head: Normocephalic. Right Ear: Tympanic membrane, ear canal and external ear normal. Left Ear: Tympanic membrane, ear canal and external ear normal. Nose: Nose normal. Mouth/Throat: Pharynx: Oropharynx is clear. Eyes: Conjunctiva/sclera: Conjunctivae normal. Pupils: Pupils are equal, round, and reactive to light. Cardiovascular: Rate and Rhythm: Tachycardia present. Rhythm irregular. Pulses: Normal pulses. Heart sounds: Murmur heard. Pulmonary: Effort: No respiratory distress. Breath sounds: No wheezing, rhonchi or rales. Comments: Patient is noticeably short of breath especially when laying her down for her abdominal exam she wants to be completely set up Abdominal: General: Bowel sounds are normal. There is distension. Palpations: Abdomen is soft. Tenderness: There is abdominal tenderness. Comments: 5/10 Right lower quadrant pain Musculoskeletal: General: No swelling or tenderness. Cervical back: No tenderness. Skin: Findings: No lesion or rash. Neurological: General: No focal deficit present. Mental Status: She is alert and oriented to person, place, and time. Mental status is at baseline. Gait: Gait normal. Psychiatric: Mood and Affect: Mood normal. Behavior: Behavior normal. Thought Content: Thought content normal. Judgment: Judgment normal. Lab on 01/08/2024 Component Date Value Ref Range Status Hemoglobin A1C 01/08/2024 7.7 (H) see below % Final Estimated Average Glucose 01/08/2024 174 Not Established mg/dL Final Lab on 11/18/2023 Component Date Value Ref Range Status WBC 11/18/2023 9.5 4.4 - 11.3 x10*3/uL Final nRBC 11/18/2023 0.0 0.0 - 0.0 /100 WBCs Final RBC 11/18/2023 4.11 4.00 - 5.20 x10*6/uL Final Hemoglobin 11/18/2023 12.6 12.0 - 16.0 g/dL Final Hematocrit 11/18/2023 39.6 36.0 - 46.0 % Final MCV 11/18/2023 96 80 - 100 fL Final MCH 11/18/2023 30.7 26.0 - 34.0 pg Final MCHC 11/18/2023 31.8 (L) 32.0 - 36.0 g/dL Final RDW 11/18/2023 13.3 11.5 - 14.5 % Final Platelets 11/18/2023 184 150 - 450 x10*3/uL Final Neutrophils % 11/18/2023 84.0 40.0 - 80.0 % Final Immature Granulocytes %, Automated 11/18/2023 1.4 (H) 0.0 - 0.9 % Final Immature Granulocyte Count (IG) includes promyelocytes, myelocytes and metamyelocytes but does not include bands. Percent differential counts (%) should be interpreted in the context of the absolute cell counts (cells/UL). Lymphocytes % 11/18/2023 9.1 13.0 - 44.0 % Final Monocytes % 11/18/2023 4.3 2.0 - 10.0 % Final Eosinophils % 11/18/2023 0.8 0.0 - 6.0 % Final Basophils % 11/18/2023 0.4 0.0 - 2.0 % Final Neutrophils Absolute 11/18/2023 7.99 (H) 1.60 - 5.50 x10*3/uL Final Percent differential counts (%) should be interpreted in the context of the absolute cell counts (cells/uL). Immature Granulocytes Absolute, Au* 11/18/2023 0.13 0.00 - 0.50 x10*3/uL Final Lymphocytes Absolute 11/18/2023 0.87 0.80 - 3.00 x10*3/uL Final Monocytes Absolute 11/18/2023 0.41 0.05 - 0.80 x10*3/uL Final Eosinophils Absolute 11/18/2023 0.08 0.00 - 0.40 x10*3/uL Final Basophils Absolute 11/18/2023 0.04 0.00 - 0.10 x10*3/uL Final Glucose 11/18/2023 186 (H) 74 - 99 mg/dL Final Sodium 11/18/2023 137 136 - 145 mmol/L Final Potassium 11/18/2023 4.4 3.5 - 5.3 mmol/L Final Chloride 11/18/2023 101 98 - 107 mmol/L Final Bicarbonate 11/18/2023 26 21 - 32 mmol/L Final Anion Gap 11/18/2023 14 10 - 20 mmol/L Final Urea Nitrogen 11/18/2023 23 6 - 23 mg/dL Final Creatinine 11/18/2023 0.89 0.50 - 1.05 mg/dL Final eGFR 11/18/2023 67 >60 mL/min/1.73m*2 Final Calculations of estimated GFR are performed using the 2020 CKD-EPI Study Refit equation without therace variable for the IDMS-Traceable creatinine methods. https://jasn.asnjournals.org/content/early//ASN.0816394023 Calcium 11/18/2023 9.1 8.6 - 10.6 mg/dL Final Albumin 11/18/2023 3.5 3.4 - 5.0 g/dL Final Alkaline Phosphatase 11/18/2023 40 33 - 136 U/L Final Total Protein 11/18/2023 5.4 (L) 6.4 - 8.2 g/dL Final AST 11/18/2023 13 9 - 39 U/L Final Bilirubin, Total 11/18/2023 0.7 0.0 - 1.2 mg/dL Final ALT 11/18/2023 25 7 - 45 U/L Final Patients treated with Sulfasalazine may generate falsely decreased results for ALT. Cholesterol 11/18/2023 178 0 - 199 mg/dL Final Age Desirable Borderline High High 0-19 Y 0 - 169 170 - 199 >/= 200 20-24 Y 0 - 189 190 - 224 >/= 225 >24 Y 0 - 199 200 - 239 >/= 240 All ranges are based on fasting samples. Specific therapeutic targets will vary based on patient-specific cardiac risk. Pediatric guidelines reference:Pediatrics 2011, 128(S5).Adult guidelines reference: NCEP ATPIII Guidelines,SARAH 2001, 258:2486-97 Venipuncture immediately after or during the administration of Metamizole may lead to falsely low results. Testing should be performed immediately prior to Metamizole dosing. HDL-Cholesterol 11/18/2023 92.5 mg/dL Final Age Very Low Low Normal High 0-19 Y < 35 < 40 40-45 ---- 20-24 Y ---- < 40 >45 ---- >24 Y ---- < 40 40-60 >60 Cholesterol/HDL Ratio 11/18/2023 1.9 Final Ref Values Desirable < 3.4 High Risk > 5.0 LDL Calculated 11/18/2023 62 <=99 mg/dL Final Near Borderline AGE Desirable Optimal High High Very High 0-19 Y 0 - 109 --- 110-129 >/= 130 ---- 20-24 Y 0 - 119 --- 120-159 >/= 160 ---- >24 Y 0 - 99 100-129 130-159 160-189 >/=190 VLDL 11/18/2023 24 0 - 40 mg/dL Final Triglycerides 11/18/2023 119 0 - 149 mg/dL Final Age Desirable Borderline High High Very High 0 D-90 D 19 - 174 ---- ---- ---- 91 D- 9 Y 0 - 74 75 - 99 >/= 100 ---- 10-19 Y 0 - 89 90 - 129 >/= 130 ---- 20-24 Y 0 - 114 115 - 149 >/= 150 ---- >24 Y 0 - 149 150 - 199 200- 499 >/= 500 Venipuncture immediately after or during the administration of Metamizole may lead to falsely low results. Testing should be performed immediately prior to Metamizole dosing. Non HDL Cholesterol 11/18/2023 86 0 - 149 mg/dL Final Age Desirable Borderline High High Very High 0-19 Y 0 - 119 120 - 144 >/= 145 >/= 160 20-24 Y 0 - 149 150 - 189 >/= 190 ---- >24 Y 30 mg/dL above LDL Cholesterol goal Thyroid Stimulating Hormone 11/18/2023 2.26 0.44 - 3.98 mIU/L Final Lab on 08/18/2023 Component Date Value Ref Range Status WBC 08/18/2023 7.4 4.4 - 11.3 x10*3/uL Final nRBC 08/18/2023 0.0 0.0 - 0.0 /100 WBCs Final RBC 08/18/2023 4.08 4.00 - 5.20 x10*6/uL Final Hemoglobin 08/18/2023 12.6 12.0 - 16.0 g/dL Final Hematocrit 08/18/2023 40.6 36.0 - 46.0 % Final MCV 08/18/2023 100 80 - 100 fL Final MCH 08/18/2023 30.9 26.0 - 34.0 pg Final MCHC 08/18/2023 31.0 (L) 32.0 - 36.0 g/dL Final RDW 08/18/2023 12.4 11.5 - 14.5 % Final Platelets 08/18/2023 271 150 - 450 x10*3/uL Final Neutrophils % 08/18/2023 68.0 40.0 - 80.0 % Final Immature Granulocytes %, Automated 08/18/2023 0.4 0.0 - 0.9 % Final Immature Granulocyte Count (IG) includes promyelocytes, myelocytes and metamyelocytes but does not include bands. Percent differential counts (%) should be interpreted in the context of the absolute cell counts (cells/UL). Lymphocytes % 08/18/2023 18.1 13.0 - 44.0 % Final Monocytes % 08/18/2023 8.2 2.0 - 10.0 % Final Eosinophils % 08/18/2023 3.9 0.0 - 6.0 % Final Basophils % 08/18/2023 1.4 0.0 - 2.0 % Final Neutrophils Absolute 08/18/2023 5.03 1.60 - 5.50 x10*3/uL Final Percent differential counts (%) should be interpreted in the context of the absolute cell counts (cells/uL). Immature Granulocytes Absolute, Au* 08/18/2023 0.03 0.00 - 0.50 x10*3/uL Final Lymphocytes Absolute 08/18/2023 1.34 0.80 - 3.00 x10*3/uL Final Monocytes Absolute 08/18/2023 0.61 0.05 - 0.80 x10*3/uL Final Eosinophils Absolute 08/18/2023 0.29 0.00 - 0.40 x10*3/uL Final Basophils Absolute 08/18/2023 0.10 0.00 - 0.10 x10*3/uL Final Glucose 08/18/2023 101 (H) 74 - 99 mg/dL Final Sodium 08/18/2023 137 136 - 145 mmol/L Final Potassium 08/18/2023 4.8 3.5 - 5.3 mmol/L Final MILD HEMOLYSIS DETECTED. The result may be falsely elevated due to hemolysis or other interferents.Clinical correlation is recommended. Repeat testing may be considered. Chloride 08/18/2023 102 98 - 107 mmol/L Final Bicarbonate 08/18/2023 21 21 - 32 mmol/L Final Anion Gap 08/18/2023 19 10 - 20 mmol/L Final Urea Nitrogen 08/18/2023 17 6 - 23 mg/dL Final Creatinine 08/18/2023 0.80 0.50 - 1.05 mg/dL Final eGFR 08/18/2023 76 >60 mL/min/1.73m*2 Final Calculations of estimated GFR are performed using the 2020 CKD-EPI Study Refit equation without therace variable for the IDMS-Traceable creatinine methods. https://jasn.asnjournals.org/content///ASN.6670800404 Calcium 08/18/2023 9.2 8.6 - 10.6 mg/dL Final Phosphorus 08/18/2023 4.5 2.5 - 4.9 mg/dL Final MILD HEMOLYSIS DETECTED. The result may be falsely elevated due to hemolysis or other interferents.Clinical correlation is recommended. Repeat testing may be considered. The performance characteristics of phosphorus testing in heparinized plasma have been validated by the individual laboratory site where testing is performed. Testing on heparinized plasma is not approved by the FDA; however, such approval is not necessary. Albumin 08/18/2023 4.0 3.4 - 5.0 g/dL Final Orders Only on 02/18/2023 Component Date Value Ref Range Status Glucose 02/18/2023 94 74 - 99 mg/dL Final Sodium 02/18/2023 137 136 - 145 mmol/L Final Potassium 02/18/2023 4.6 3.5 - 5.3 mmol/L Final Chloride 02/18/2023 102 98 - 107 mmol/L Final Bicarbonate 02/18/2023 23 21 - 32 mmol/L Final Anion Gap 02/18/2023 17 10 - 20 mmol/L Final Urea Nitrogen 02/18/2023 17 6 - 23 mg/dL Final Creatinine 02/18/2023 0.77 0.50 - 1.05 mg/dL Final GFR Female 02/18/2023 79 >90 mL/min/1.73m2 Final Comment: CALCULATIONS OF ESTIMATED GFR ARE PERFORMED USING THE 2020 CKD-EPI STUDY REFIT EQUATION WITHOUT THE RACE VARIABLE FOR THE IDMS-TRACEABLE CREATININE METHODS. https://jasn.asnjournals.org/content/early//ASN.8614867246 Calcium 02/18/2023 9.5 8.6 - 10.6 mg/dL Final Phosphorus 02/18/2023 4.4 2.5 - 4.9 mg/dL Final Comment: The performance characteristics of phosphorus testing in heparinized plasma have been validated by the individual laboratory site where testing is performed. Testing on heparinized plasma is not approved by the FDA; however, such approval is not necessary. Albumin 02/18/2023 4.2 3.4 - 5.0 g/dL Final Protein, Ur 02/18/2023 197 (H) 5 - 24 mg/dL Final Creatinine, Urine 02/18/2023 49.4 20.0 - 320.0 mg/dL Final Prot/Creat, Ur 02/18/2023 3.99 (H) 0.00 - 0.17 mg/mg Creat Final Current Outpatient Medications on File Prior to Visit Medication Sig Dispense Refill albuterol 90 mcg/actuation inhaler Inhale 2 puffs every 4 hours if needed. amLODIPine (Norvasc) 5 mg tablet Take 1 tablet (5 mg) by mouth once daily. 90 tablet 0 aspirin 81 mg EC tablet Take 1 tablet (81 mg) by mouth once daily. atovaquone (Mepron) 750 mg/5 mL suspension Take by mouth once daily. cholecalciferol (Vitamin D-3) 50 MCG (2000 UT) tablet Take 2 tablets (4,000 Units) by mouth once daily. citalopram (CeleXA) 20 mg tablet TAKE 1 TABLET BY MOUTH ONCE DAILY. 90 tablet 3 clindamycin (Cleocin T) 1 % lotion twice a day. Apply sparingly and massage in colchicine 0.6 mg tablet 1 tablet Orally ezetimibe (Zetia) 10 mg tablet Take 1 tablet (10 mg) by mouth once daily. fluocinonide (Lidex) 0.05 % external solution 1 (one) time each day. Apply to affected areas fluticasone (Flonase) 50 mcg/actuation nasal spray Administer 1 spray into each nostril once daily.Shake gently. Before first use, prime pump. After use, clean tip and replace cap. 16 g 1 icosapent ethyL (Vascepa) 1 gram capsule Take 2 capsules (2 g) by mouth twice a day. Kerendia 10 mg tablet tablet Take 1 tablet (10 mg) by mouth once daily. lansoprazole (Prevacid) [address] capsule TAKE 1 CAPSULE BY MOUTH ONCE DAILY. 90 capsule 3 linagliptin-metformin (Jentadueto XR) 2.5-1,000 mg tablet, IR - ER, biphasic 24hr Take 2 tablets bymouth once daily. 180 tablet 1 losartan (Cozaar) 100 mg tablet TAKE 1 TABLET BY MOUTH ONCE DAILY. 90 tablet 3 metoprolol tartrate (Lopressor) 25 mg tablet TAKE 1 TABLET BY MOUTH DAILY IN THE MORNING AND 1 TABLET DAILY BEFORE BEDTIME. 180 tablet 3 predniSONE (Deltasone) 5 mg tablet 10 then 9 then 8 then 7 etc. until gone 55 tablet 0 rosuvastatin (Crestor) 10 mg tablet TAKE 1 TABLET BY MOUTH ONCE DAILY. 90 tablet 3 Spiriva Respimat 2.5 mcg/actuation inhaler Inhale 2 puffs once daily. [DISCONTINUED] linagliptin-metformin (Jentadueto XR) 2.5-1,000 mg tablet, IR - ER, biphasic 24hr Take 2 tablets by mouth once daily. 180 tablet 3 No current facility-administered medications on file prior to visit. No images are attached to the encounter. Assessment/Plan Diagnoses and all orders for this visit: Submandibular swelling - amoxicillin-pot clavulanate (Augmentin) 875-125 mg tablet; Take 1 tablet (875 mg) by mouth 2 times a day for 10 days. Right lower quadrant pain Dyspnea, unspecified type - ECG 12 Lead Patient to start on antibiotics Patient will be sent to [facility] for visualization of his A-fib called 911 and paramedics transported to [facility] Patient to call if questions or concerns [facility] Phone: [phone]) 217-592305-28-2024 Telephone encounter Note* Telephone Encounter - Matheus Hunter LPN - 01/12/2024 8:51 AM EDT Patient notified okay to stop atovaquone (Mepron) 750 MG/5ML when pt is taking 10 mg prednisone po daily. Verbalized understanding. [id number] Miscellaneous Notes* Telephone Encounter - Matheus Hunter LPN - 01/12/2024 8:51 AM EDT Patient notified okay to stop atovaquone (Mepron) 750 MG/5ML when pt is taking 10 mg prednisone po daily. Verbalized understanding. * Telephone Encounter - Tomás Cuellar APRN - [employer]INDOWS [employer]IST - 01/08/2024 2:[address] Arana office note Continue with atovaquone until prednisone is less than 20 mg daily for PCP prophylaxis. If currently on 1 tab (10 mg) daily can stop the atovaquone * Telephone Encounter - Matheus Hunter LPN - 01/08/2024 11:14 AM EDT Patient call. Chief C/O- Dr. Bhatia prescribed her her on Prednisone taper and atovaquone (Mepron)750 MG/5ML suspension.Reported started 1 tablet daily from today. Her question is should she suppose to continue atovaquone (Mepron) 750 MG/5ML suspension or stop when prednisone taper order completed. Please Advise. documented in this [place] [id number] Telephone encounter Note* Telephone Encounter - SUJATA Valdez CNP - 01/08/2024 2:[address] Arana office note Continue with atovaquone until prednisone is less than 20 mg daily for PCP prophylaxis. If currently on 1 tab (10 mg) daily can stop the atovaquone [facility] Phone: [phone] 736-237305-24-2024 Miscellaneous Notes* Telephone Encounter - SUJATA Valdez CNP - 01/08/2024 2:[address] Arana office note Continue with atovaquone until prednisone is less than 20 mg daily for PCP prophylaxis. If currently on 1 tab (10 mg) daily can stop the atovaquone * Telephone Encounter - Matheus Hunter LPN - 01/08/2024 11:14 AM EDT Patient call. C/O- Dr. Bhatia prescribed her her on Prednisone taper and atovaquone (Mepron)750 MG/5ML suspension.Reported started 1 tablet daily from today. Her question is should she suppose to continue atovaquone (Mepron) 750 MG/5ML suspension or stop when prednisone taper order completed. Please Advise. documented in this encounterSSt. [facility] [id number] Telephone encounter Note* Telephone Encounter - Matheus Hunter LPN - 01/08/2024 11:14 AM EDT Patient call. C/OStorm Bhatia prescribed her her on Prednisone taper and atovaquone (Mepron)750 MG/5ML suspension.Reported started 1 tablet daily from today. Her question is should she suppose to continue atovaquone (Mepron) 750 MG/5ML suspension or stop when prednisone taper order completed. Please Advise. [facility] [id number] History of Present illness Narrative* Jerel Fraser DO - 01/08/2024 10:00 AM EDT Subjective Patient ID: Rolando Peters is a 78 y.o. female who presents for Joint Swelling (X 1 week ). HPI Left ankle swelling for the past week. No swelling anywhere else. She denies any injury or trauma. Overall she states that it has been improving. She was not sure if she needed to do anything else for the foot. She denies any periods of immobility. She also denies any sort of calf pain or tenderness. She denies any skin changes. Review of Systems Constitutional: Negative for chills, fatigue and fever. HENT: Negative for congestion. Respiratory: Negative for cough and shortness of breath. Cardiovascular: Negative for chest pain. Gastrointestinal: Negative for abdominal pain. Musculoskeletal: Positive for joint swelling (Left ankle). Negative for arthralgias and myalgias. Objective BP 126/78 Pulse 91 Temp 36.5 C (97.7 F) Wt 68 kg (150 lb) SpO2 96% BMI 23.49 kg/m Physical Exam Vitals and nursing note reviewed. Constitutional: General: She is not in acute distress. Appearance: Normal appearance. She is normal weight. She is not ill-appearing or toxic-appearing. HENT: Head: Normocephalic and atraumatic. Cardiovascular: Rate and Rhythm: Normal rate and regular rhythm. Pulses: Normal pulses. Heart sounds: Normal heart sounds. Pulmonary: Effort: Pulmonary effort is normal. Breath sounds: Normal breath sounds. Musculoskeletal: General: Swelling (Left ankle) present. No tenderness, deformity or signs of injury. Normal range of motion. Skin: General: Skin is warm and dry. Neurological: Mental Status: She is alert. Assessment/Plan Problem List Items Addressed This Visit ICD-10-CM 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 with 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, without long-term current use of insulin (Multi) E11.42 Relevant Orders Hemoglobin A1C Primary hypertension I10 Relevant Medications amLODIPine (Norvasc) 5 mg tablet Other Visit Diagnoses Codes Left ankle swelling - Primary M25.472 Relevant Orders XR ankle left 3+ views History and physical examination as above. Patient with left ankle swelling. Unknown etiology for her symptoms. Decided to order an x-ray of the left ankle. We will contact patient with results. Refill sent in for patient's amlodipine. Plan for repeat hemoglobin A1c. Patient will follow-up with primary care. She will come in sooner with other acute concerns or complaints. documented in [facility] Work Phone: [phone]) 627-631205-24-2024 Instructions* Patient Instructions* Jerel Fraser DO - 01/08/2024 10:00 AM EDT We can go right downstairs and get the x-ray done of your ankle as well as the blood test for repeat A1c. I went ahead and sent in a refill of your amlodipine prescription. Your blood pressure does look really good today. Please continue with regular follow-up with your primary care provider. Thank you documented in this encounterOhio [facility] Work Phone: [phone]) 339-776704-26-2024 Telephone encounter Note* Telephone Encounter - Karime Marie RN - 12/11/2023 1:07 PM EDT Appt verified w/ patient for CT chest, aware no prep needed. Mailing itinerary to home address along with contact info. No questions at this time. [facility] [id number] Miscellaneous Notes* Telephone Encounter - Karime Marie RN - 12/11/2023 1:07 PM EDT Appt verified w/ patient for CT chest, aware no prep needed. Mailing itinerary to home address along with contact info. No questions at this time. * Telephone Encounter - Karly Arango - 12/11/2023 11:[address] Chest scheduled for 02/23 @ 11:30 am in [place]. * Telephone Encounter - Karime Marie RN - 12/11/2023 11:07 AM EDT Navigator spoke to patient by phone and reviewed conference discussion. Patient is in agreement andwould like to pursue CT scan before scheduled appointment with Dr. Natalia Wren on 03-11-2024. Patient prefers [place] location only and likes late morning or afternoon appointments preferably.Navigator will send to office staff to assist with scheduling. documented in this encounterSSt. John of God [id number] Telephone encounter Note* Telephone Encounter - Karly Arango - 12/11/2023 11:[address] Chest scheduled for 02/23 @ 11:30 am in [place]. [facility] [id number] Telephone encounter Note* Telephone Encounter - Karime Marie RN - 12/11/2023 11:07 AM EDT Navigator spoke to patient by phone and reviewed conference discussion. Patient is in agreement andwould like to pursue CT scan before scheduled appointment with Dr. Natalia Wren on 03-11-2024. Patient prefers [place] location only and likes late morning or afternoon appointments preferably.Navigator will send to office staff to assist with scheduling. [place] [id number] Note* Addendum Note - Stephanie Araan DO - 12/04/2023 1:47 PM EDTAddended by: STEPHANIE ARANA on: 12/04/2023 01:47 PM Modules accepted: Orders [place] [id number] Miscellaneous Notes* Addendum Note - Stephanie Wren DO - 12/04/2023 1:47 PM EDTAddended by: STEPHANIE ARANA on: 12/04/2023 01:47 PM Modules accepted: Orders * Telephone Encounter - Celeste Pruett LPN - 12/04/2023 11:50 AM EDT Nydia from Pharmacy called in asking for clarification of frequency for Pt's albuterol rescue inhaler. Please advise documented in this encounterSSt. John of God [id number] Telephone encounter Note* Telephone Encounter - Celeste Pruett LPN - 12/04/2023 11:50 AM EDT Nydia from Pharmacy called in asking for clarification of frequency for Pt's albuterol rescue inhaler. Please advise [facility] [id number] History of Present illness Narrative* Stephanie Carlos Wren, DO - 12/04/2023 10:45 AM EDT [facility] [facility] [place] Medicine [address] [place] [id number] Pulmonary Patient Visit 12/04/2023 Referring Physician: CELIA AL DO Reason for Referral: Lung Nodules 09/29/23 History of Present Illness Rolando Peters is a 78 y.o. female with history of stage I triple negative breast cancer s/p left mastectomy 05/2011, right-sided breast cancer s/p mastectomy 06/1994 s/p adjuvant chemo/tamoxifen, CKD who presented for evaluation of multiple PET avid pulmonary nodules. Patient reported she follows with oncology Dr. Marcus. Stated that she was referred to Dr. Marcus as she has had progressive weightloss, about 50 pounds since 07/2022. Admitted to a chronic mostly nonproductive cough and postnasaldrip. Reported progressive CRUZ with stairs, denied any shortness of breath at rest. Stated she was diagnosed with exercise-induced asthma several years ago, has an albuterol inhaler which she rarely requires. Denied any hemoptysis, chest pain, night sweats. Initially diagnosed with INGA in 2007, completed PSG and prescribed CPAP with nasal mask, but has not been compliant. 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 Procedure complicated by pneumothorax requiring chest tube. Patient reports feeling well since being discharged. Admitted to blood- tinged sputum postprocedure which has since resolved. Admitted to chronic CRUZ with stairs, denied any shortness of breath at rest, chest pain. 12/04/23 Currently on prednisone 30mg until next week. Stated that she has some sinus drainage due to seasonal allergies, but that her cough has resolved. Was started on Spiriva and noticed improvement of wheezing except on the day that she forgot to take it. Denies any fevers, chills. PastMedical History Past Medical History: Diagnosis Date Arthritis Asthma Breast cancer (HCC) 1993 Right Breast(Mastectomy) Breast cancer (HCC) 2010 Left Breast(Simple Mastectomy, SLND) Chronic kidney disease Diabetes (HCC) GERD (gastroesophageal reflux disease) High blood pressure Occlusion and stenosis of unspecified carotid artery Pure hypercholesterolemia Syncope and collapse 08/29/2022 Past Surgical History Past Surgical History: Procedure Laterality Date CAROTID ENDARTERECTOMY Right 2009 CATARACT EXTRACTION Bilateral 2006 CHEST TUBE INSERTION Right 10/05/2023 ENDOBRONCHIAL ULTRASOUND EBUS (HISTORICAL) 10/05/2023 MASTECTOMY Left 2010 simple/reconstruction/gingivagrapht MASTECTOMY Right 1993 reconstruction (TRAM) TOTAL ABDOMINAL HYSTERECTOMY W/ BILATERAL SALPINGOOPHORECTOMY 1998 TUBAL LIGATION 1979 Allergies Allergies Allergen Reactions Isosulfan Blue Anaphylaxis Methylene Blue Sulfa Antibiotics Rash Medications Medication Documentation Review Audit Reviewed by Stephanie Arana DO (Physician) on 12/04/23 at 1253 Medication Order Taking? Sig Documenting Provider Last Dose Status Discontinued 12/04/23 1115 albuterol 108 (90 Base) MCG/ACT inhaler [id number] albuterol sulfate HFA 90 mcg/actuation aerosol inhaler Stephanie Arana DO Active amLODIPine (Norvasc) 5 MG tablet [id number] Yes Take 5 mg by mouth daily. Historical ProviderMD Taking Active aspirin 81 MG chewable tablet [id number] Yes daily. Abebe ProviderMD Taking Active atovaquone (Mepron) 750 MG/5ML suspension [id number] Yes Take 10 mL (1,500 mg) by mouth daily. Stephanie Arana DO Taking Active cholecalciferol (Vitamin D-3) 50 MCG (2000 UT) tablet [id number] Yes Take 4,000 Units by mouth daily.Abebe ProviderMD Taking Active citalopram (CeleXA) 20 MG tablet [id number] Yes Take 20 mg by mouth daily. Abebe ProviderMD Taking Active ezetimibe (Zetia) 10 MG tablet [id number] Yes Take 1 tablet (10 mg) by mouth in the morning. Marcia Correa APRN - FRANSISCO Taking Active Finerenone (Kerendia) 10 MG tablet [id number] Yes Take 1 tablet by mouth daily. Historical Provider, Taking Active fluticasone (Cutivate) 0.05 % cream [id number] Yes Apply topically Daily as needed (itching). Historical Provider, Taking Active fluticasone (Flonase) 50 MCG/ACT nasal spray [id number] Yes Administer 1 spray into each nostril daily. Shake gently. Before first use, prime pump. After use, clean tip and replace cap. Historical Provider, Taking Active Jentadueto XR 2.5-1000 MG per 24 hr tablet [id number] Yes take 2 tablets by mouth once daily Historical Provider, Taking Active lansoprazole (Prevacid) [address] capsule [id number] Yes 1 capsule in the morning. Historical Provider, Taking Active losartan (Cozaar) 100 MG tablet [id number] Yes losartan 100 mg tablet Historical Provider, Taking Active metoprolol tartrate (Lopressor) 25 MG tablet [id number] Yes metoprolol tartrate 25 mg tablet Historical Provider, Taking Active Discontinued 12/04/23 1116 predniSONE (Deltasone) 10 MG tablet [id number] Take 2 tablets (20 mg) by mouth daily. Take 2 tablets (20mg) daily x 4 weeks, then 1 tablet (10mg) daily x 4 weeks Stephanie Arana, Active rosuvastatin (Crestor) 10 MG tablet [id number] Yes daily. Historical ProviderMD Taking Active tiotropium (Spiriva Respimat) 2.5 MCG/ACT inhaler [id number] Yes Inhale 2 puffs daily. 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 Respiratory: See HPI Cardiovascular: Negative. Physical Exam Vitals: 12/04/23 1045 12/04/23 1252 BP: 111/73 Pulse: (!) 142 87 Temp: (!) 35.9 C (96.7 F) TempSrc: Temporal SpO2: 99% Weight: 149 lb 3.2 oz (67.7 kg) Height: 5' 7 (1.702 m) Physical Exam Vitals reviewed. Constitutional: General: She is not in acute distress. Appearance: Normal appearance. HENT: Head: Normocephalic and atraumatic. Nose: No congestion. Mouth/Throat: Mouth: Mucous membranes are moist. Eyes: General: No scleral icterus. Extraocular Movements: Extraocular movements intact. Cardiovascular: Rate and Rhythm: Normal rate and regular rhythm. Pulmonary: Effort: Pulmonary effort is normal. No respiratory distress. Breath sounds: Normal breath sounds. No wheezing, rhonchi or rales. Musculoskeletal: General: No swelling or tenderness. Skin: General: Skin is warm and dry. Neurological: Mental Status: She is alert and oriented to person, place, and time. Psychiatric: Mood and Affect: Mood normal. Labs: Available studies were reviewed Radiology: Personally reviewed and interpreted Chest CT 08/24/2023: Interval development of scattered focal consolidations in the lungs, particularly in the apical left lung lobes as discussed. Recommended short-term follow-up imaging to document resolution. Interval development of new lateral right middle lung lobe nodule with interval enlargement of other previously noted nodules as discussed. Further clinical attention and workup is warranted. Moderate pulmonary emphysema. Coronary and aortic atherosclerosis. Other chronic findings as discussed. PET/CT 09/17/23: 1 cm irregular nodular density within the lateral aspect of the right upper lobe onthe low-dose CT images demonstrates intense FDG accumulation, consistent with malignancy. A 7 mm nodular density within the anteromedial right lower lobe also demonstrates abnormal FDG accumulation, suspicious for malignancy. A streaky density within the left lower lobe on the low-dose CT images demonstrates mild FDG accumulation, less than typically expected for malignancy. A small, somewhat streaky nodular density within the medial aspect of the right lower lobe also demonstrates mild FDG uptake. There is a linear density at the posterior aspect of the left lung apex which demonstrate mild to moderate FDG accumulation which is nonspecific, however the linear configuration of this area is more suggestive of an inflammatory etiology. CT follow-up of these findings is recommended. No evidence of regional edmond or distant metastatic disease. Chest CT 11/25/23: Multiple bilateral areas of lung parenchymal abnormality and increased activity on the previous PET/CT are unchanged. There is a new 6 mm nodular density in the left upper lobe lung. Continued follow-up CT would be helpful. PFT's: 10/29/2023: Moderate obstruction, significant response to bronchodilators, air trapping, moderately reduced diffusion capacity Assessment/plan: Hypermetabolic pulmonary nodules, OP Hx breast ca s/p B/L mastectomies COPD/asthma overlap Former smoker -Chest imaging previously reviewed with patient and spouse, discussed multiple new or enlarging pulmonary nodules. Most avid nodules are SUV 7.2 right middle lobe and SUV 4.9 right lower lobe. Left upper lobe streaky density has moderate uptake SUV 3.2. No avid lymphadenopathy. -S/p ENB/EBUS 10/05/22. 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 Right middle lobe biopsy also with adjacent acellular material. TBNA with RML with atypical cells, RLL nondiagnostic, LN 7, 4R, 11R negative for malignancy. Pneumonia PCR, bacterial culture, fungal stain/culture, AFB stain/culture, silver stain, Aspergillus galactomannan, beta D glucan negative. Results previously reviewed with patient. -Repeat chest CT images reviewed with patient, believe that prior right-sided and left lower lobe PET avid areas are improved though CT reports as stable, discussed new ROXANN nodular density. Will review at pulmonary nodule conference. -Again discussed that since patient had pneumothorax during procedure, biopsies may not be accuratebut organizing pneumonia could account for clinical picture of avidity on PET scan, bilateral nodular infiltrates, recent weight loss, and CRUZ. S/p prednisone 60 mg daily, now tapered to 30 mg daily with taper to 20 mg daily next week. Discussed that if conference is in agreement that CT is overall improved, will continue with prednisone 20 mg daily x 4 weeks, then 10 mg daily x 4 weeks and then DC. Continue with atovaquone until prednisone is less than 20 mg daily for PCP prophylaxis. Likely will repeat chest CT in 3 months. -PFTs reviewed with patient, has had improvement when using Spiriva consistently. Discussed that she can also continue with albuterol as needed. -Patient is following closely with her PCP Dr. Al for hyperglycemia -Will forward note to patient's near [place] archeology professor Dr. Jhoan Livingston -Noted to be tachycardic on initial vitals, repeat HR in the 80s. Patient reports episodes of palpitations occasionally. Recommended that patient follow- up with her cementer oil well Follow up: Will notify of nodule conference recommendations, then follow-up following repeat CT Please seek immediate medical attention for any worsening or worrying new symptoms. Patient education, benefits, risks, and precautions provided. Management plan was discussed in detail and in agreement. All questions or concerns answered to satisfaction and understood. Stephanie Arana DO 12:54 PM 12/04/23 Pulmonary and Critical Care Medicine documented in this [facility]04-19-2024 Instructions* Patient Instructions* Ginger Benson - 12/04/2023 10:45 AM EDT YOUR APPOINTMENT TODAY WAS WITH THE [facility] LUNG NODULE CLINIC, COPD CLINIC, PULMONARY AND SLEEP MEDICINE OFFICE. PLEASE CALL OUR OFFICE AT [phone] IF YOU HAVE NOT RECEIVED YOUR TEST RESULTS 7 DAYS AFTER TESTING IS COMPLETED. PLEASE REMEMBER TO REQUEST REFILLS AT YOUR OFFICE VISITS. PHONE/FAX REQUESTS REQUIRE 48-72 HOURS FOR RESPONSE. A FRIENDLY REMINDER COPAYS ARE DUE AT TIME OF SERVICE. THANK YOU. Our Patients Are Important! We want to improve and you can help. After your visit we want you to feel: Listened to, Respected and have your health care explained. You may receive a survey asking you about your visit. Please complete the survey. We will use your feedback to make improvements. COVID-19 VACCINATION INFORMATION: PH. [phone] [email or web address] [facility] Central Scheduling [phone] [facility] Sleep Scheduling [phone] documented in this encounterSSt. John of God [id number] Telephone encounter Note* Telephone Encounter - Celeste Copeland RN - 10/30/2023 4:21 PM EDT Phone call to patient and reviewed PFT results and recommendations with her. She is agreeable. Pharmacy confirmed. ----- Message from Stephanie Arana DO sent at 10/29/2023 5:24 PM EDT ----- Please let patient know that PFTs show a moderate obstruction, significant response to bronchodilators, and moderately reduced diffusion capacity consistent with COPD. Please ask what pharmacy she uses and I will prescribe a maintenance inhaler. Can continue with albuterol as needed. I will review in more detail at her next appointment. Thank you. ----- Message ----- From: Concha, Scan In Sent: 10/29/2023 11:30 AM EDT To: Stephanie Arana DO [facility] [id number] Miscellaneous Notes* Telephone Encounter - Celeste Copeland RN - 10/30/2023 4:21 PM EDT Phone call to patient and reviewed PFT results and recommendations with her. She is agreeable. Pharmacy confirmed. ----- Message from Stephanie Arana DO sent at 10/29/2023 5:24 PM EDT ----- Please let patient know that PFTs show a moderate obstruction, significant response to bronchodilators, and moderately reduced diffusion capacity consistent with COPD. Please ask what pharmacy she uses and I will prescribe a maintenance inhaler. Can continue with albuterol as needed. I will review in more detail at her next appointment. Thank you. ----- Message ----- From: Concha, Scan In Sent: 10/29/2023 11:30 AM EDT To: Stephanie Arana DO documented in this [facility]03-01-2024 History of Present illness Narrative* Celia Christi Al, DO - 10/16/2023 1:40 PM EST Subjective Patient ID: Rolando Peters is a 78 y.o. female who presents for Follow-up. HPI She did meet with Dr. Charlton who said she had spinal stenosis and she would walk better if she hadsurgery. She started to have issues with lungs. Patient has history of Stage I LEFT sided (pT1b pN0) Triple negative breast cancer: -05/19/2011 LEFT mastectomy showed 0.6cm poorly differentiated carcinoma. LN evaluation was negativefor disease. -s/p TC x 4 until 11/2011 RIGHT sided breast cancer: S/p RIGHT sided mastectomy w/ axillary LN dissection 07/08/1994 followed by adjuvant chemo, followed by 5 yrs of tamoxifen. Treated by Dr. Lisa Llamas -s/p R breast reconstruction 1993 BRCA1 mutation positive: S/p bilateral mastectomy and TAHBSO Recently saw hip hop dancer oncologist to said that there was no overt evidence of malignancy howeverwith lung nodules recommended a repeat CT scan in 3 to 4 months in November had some lab work performed by hematology oncology was stable and recommended a follow-up with hematology oncology after has arepeat CT scan in 3 to 4 months. Patient did have bronchoscopy 10/05/2023 in which she had a pneumothorax. She just saw Dr. Angeline john/onc that did a pet scan that was normal. He did find a 4 mm lung nodule on the right side. He repeated a CT of her chest in August and was told to see pulmonary because of a new spot on the lung that did show on the PET scan. Patient did have bronchoscopy 10/05/2023 in which she had a pneumothorax. She saw Dr. Stephanie Bhatia for this. She was told the pathlogy was normal no malignancy. She was told she had some organized pneumonia. She was told she needs prednisone and antaquone. She was told this is why she is having the fatigue, weight loss. Blood sugars are running 160's. She was told to follow up with her PCP about her blood sugars from the packing floor worker. She also sees her near east archeology professor in August as well. Review of Systems Constitutional: Positive for appetite change and unexpected weight change. Negative for activity change, fatigue and fever. HENT: Negative for congestion. Respiratory: Negative for cough, choking and chest tightness. Cardiovascular: Negative for chest pain, palpitations and leg swelling. Musculoskeletal: Negative for arthralgias, back pain and gait problem. Skin: Negative for color change and pallor. Neurological: Negative for dizziness, facial asymmetry, light-headedness and headaches. Objective BP 138/56 (BP Location: Right arm) Pulse 73 Wt 66 kg (145 lb 6.4 oz) BMI 22.77 kg/m BSA Body surface area is 1.77 meters squared. Physical Exam Constitutional: General: She is not in acute distress. Appearance: Normal appearance. She is not toxic-appearing. HENT: Head: Normocephalic. Right Ear: Tympanic membrane, ear canal and external ear normal. Left Ear: Tympanic membrane, ear canal and external ear normal. Eyes: Conjunctiva/sclera: Conjunctivae normal. Pupils: Pupils are equal, round, and reactive to light. Cardiovascular: Rate and Rhythm: Normal rate and regular rhythm. Pulses: Normal pulses. Heart sounds: Murmur heard. Pulmonary: Effort: No respiratory distress. Breath sounds: No wheezing, rhonchi or rales. Musculoskeletal: General: No swelling or tenderness. Cervical back: No tenderness. Skin: Findings: No lesion or rash. Neurological: General: No focal deficit present. Mental Status: She is alert and oriented to person, place, and time. Mental status is at baseline. Gait: Gait normal. Psychiatric: Mood and Affect: Mood normal. Behavior: Behavior normal. Thought Content: Thought content normal. Judgment: Judgment normal. Lab on 08/18/2023 Component Date Value Ref Range Status WBC 08/18/2023 7.4 4.4 - 11.3 x10*3/uL Final nRBC 08/18/2023 0.0 0.0 - 0.0 /100 WBCs Final RBC 08/18/2023 4.08 4.00 - 5.20 x10*6/uL Final Hemoglobin 08/18/2023 12.6 12.0 - 16.0 g/dL Final Hematocrit 08/18/2023 40.6 36.0 - 46.0 % Final MCV 08/18/2023 100 80 - 100 fL Final MCH 08/18/2023 30.9 26.0 - 34.0 pg Final MCHC 08/18/2023 31.0 (L) 32.0 - 36.0 g/dL Final RDW 08/18/2023 12.4 11.5 - 14.5 % Final Platelets 08/18/2023 271 150 - 450 x10*3/uL Final Neutrophils % 08/18/2023 68.0 40.0 - 80.0 % Final Immature Granulocytes %, Automated 08/18/2023 0.4 0.0 - 0.9 % Final Immature Granulocyte Count (IG) includes promyelocytes, myelocytes and metamyelocytes but does not include bands. Percent differential counts (%) should be interpreted in the context of the absolute cell counts (cells/UL). Lymphocytes % 08/18/2023 18.1 13.0 - 44.0 % Final Monocytes % 08/18/2023 8.2 2.0 - 10.0 % Final Eosinophils % 08/18/2023 3.9 0.0 - 6.0 % Final Basophils % 08/18/2023 1.4 0.0 - 2.0 % Final Neutrophils Absolute 08/18/2023 5.03 1.60 - 5.50 x10*3/uL Final Percent differential counts (%) should be interpreted in the context of the absolute cell counts (cells/uL). Immature Granulocytes Absolute, Au* 08/18/2023 0.03 0.00 - 0.50 x10*3/uL Final Lymphocytes Absolute 08/18/2023 1.34 0.80 - 3.00 x10*3/uL Final Monocytes Absolute 08/18/2023 0.61 0.05 - 0.80 x10*3/uL Final Eosinophils Absolute 08/18/2023 0.29 0.00 - 0.40 x10*3/uL Final Basophils Absolute 08/18/2023 0.10 0.00 - 0.10 x10*3/uL Final Glucose 08/18/2023 101 (H) 74 - 99 mg/dL Final Sodium 08/18/2023 137 136 - 145 mmol/L Final Potassium 08/18/2023 4.8 3.5 - 5.3 mmol/L Final MILD HEMOLYSIS DETECTED. The result may be falsely elevated due to hemolysis or other interferents.Clinical correlation is recommended. Repeat testing may be considered. Chloride 08/18/2023 102 98 - 107 mmol/L Final Bicarbonate 08/18/2023 21 21 - 32 mmol/L Final Anion Gap 08/18/2023 19 10 - 20 mmol/L Final Urea Nitrogen 08/18/2023 17 6 - 23 mg/dL Final Creatinine 08/18/2023 0.80 0.50 - 1.05 mg/dL Final eGFR 08/18/2023 76 >60 mL/min/1.73m*2 Final Calculations of estimated GFR are performed using the 2020 CKD-EPI Study Refit equation without therace variable for the IDMS-Traceable creatinine methods. https://jasn.asnjournals.org/content/early//ASN.3072540413 Calcium 08/18/2023 9.2 8.6 - 10.6 mg/dL Final Phosphorus 08/18/2023 4.5 2.5 - 4.9 mg/dL Final MILD HEMOLYSIS DETECTED. The result may be falsely elevated due to hemolysis or other interferents.Clinical correlation is recommended. Repeat testing may be considered. The performance characteristics of phosphorus testing in heparinized plasma have been validated by the individual laboratory site where testing is performed. Testing on heparinized plasma is not approved by the FDA; however, such approval is not necessary. Albumin 08/18/2023 4.0 3.4 - 5.0 g/dL Final Orders Only on 02/18/2023 Component Date Value Ref Range Status Glucose 02/18/2023 94 74 - 99 mg/dL Final Sodium 02/18/2023 137 136 - 145 mmol/L Final Potassium 02/18/2023 4.6 3.5 - 5.3 mmol/L Final Chloride 02/18/2023 102 98 - 107 mmol/L Final Bicarbonate 02/18/2023 23 21 - 32 mmol/L Final Anion Gap 02/18/2023 17 10 - 20 mmol/L Final Urea Nitrogen 02/18/2023 17 6 - 23 mg/dL Final Creatinine 02/18/2023 0.77 0.50 - 1.05 mg/dL Final GFR Female 02/18/2023 79 >90 mL/min/1.73m2 Final Comment: CALCULATIONS OF ESTIMATED GFR ARE PERFORMED USING THE 2020 CKD-EPI STUDY REFIT EQUATION WITHOUT THE RACE VARIABLE FOR THE IDMS-TRACEABLE CREATININE METHODS. https://jasn.asnjournals.org/content//ASN.5348786945 Calcium 02/18/2023 9.5 8.6 - 10.6 mg/dL Final Phosphorus 02/18/2023 4.4 2.5 - 4.9 mg/dL Final Comment: The performance characteristics of phosphorus testing in heparinized plasma have been validated by the individual laboratory site where testing is performed. Testing on heparinized plasma is not approved by the FDA; however, such approval is not necessary. Albumin 02/18/2023 4.2 3.4 - 5.0 g/dL Final Protein, Ur 02/18/2023 197 (H) 5 - 24 mg/dL Final Creatinine, Urine 02/18/2023 49.4 20.0 - 320.0 mg/dL Final Prot/Creat, Ur 02/18/2023 3.99 (H) 0.00 - 0.17 mg/mg Creat Final Orders Only on 10/16/2022 Component Date Value Ref Range Status TSH 10/16/2022 1.24 0.44 - 3.98 mIU/L Final Comment: TSH testing is performed using different testing methodology at [facility] than at other [facility]. Direct result comparisons should only be made within the same method. Orders Only on 10/16/2022 Component Date Value Ref Range Status Cholesterol 10/16/2022 133 0 - 199 mg/dL Final Comment: . AGE DESIRABLE BORDERLINE HIGH HIGH 0-19 Y 0 - 169 170 - 199 >/= 200 20-24 Y 0 - 189 190 - 224 >/= 225 >24 Y 0 - 199 200 - 239 >/= 240 All ranges are based on fasting samples. Specific therapeutic targets will vary based on patient-specific cardiac risk. . Pediatric guidelines reference:Pediatrics 2011, 128(S5). Adult guidelines reference: NCEP ATPIII Guidelines, SARAH 2001, 258:2486-97 . Venipuncture immediately after or during the administration of Metamizole may lead to falsely low results. Testing should be performed immediately prior to Metamizole dosing. HDL 10/16/2022 52.7 mg/dL Final Comment: . AGE VERY LOW LOW NORMAL HIGH 0-19 Y < 35 < 40 40-45 ---- 20-24 Y ---- < 40 >45 ---- >24 Y ---- < 40 40-60 >60 . Cholesterol/HDL Ratio 10/16/2022 2.5 Final Comment: REF VALUES DESIRABLE < 3.4 HIGH RISK > 5.0 LDL 10/16/2022 45 0 - 99 mg/dL Final Comment: . NEAR BORD AGE DESIRABLE OPTIMAL HIGH HIGH VERY HIGH 0-19 Y 0 - 109 --- 110-129 >/= 130 ---- 20-24 Y 0 - 119 --- 120-159 >/= 160 ---- >24 Y 0 - 99 100-129 130-159 160-189 >/=190 . VLDL 10/16/2022 36 0 - 40 mg/dL Final Triglycerides 10/16/2022 179 (H) 0 - 149 mg/dL Final Comment: . AGE DESIRABLE BORDERLINE HIGH HIGH VERY HIGH 0 D-90 D 19 - 174 ---- ---- ---- 91 D- 9 Y 0 - 74 75 - 99 >/= 100 ---- 10-19 Y 0 - 89 90 - 129 >/= 130 ---- 20-24 Y 0 - 114 115 - 149 >/= 150 ---- >24 Y 0 - 149 150 - 199 200- 499 >/= 500 . Venipuncture immediately after or during the administration of Metamizole may lead to falsely low results. Testing should be performed immediately prior to Metamizole dosing. Orders Only on 10/16/2022 Component Date Value Ref Range Status Glucose 10/16/2022 125 (H) 74 - 99 mg/dL Final Sodium 10/16/2022 138 136 - 145 mmol/L Final Potassium 10/16/2022 4.8 3.5 - 5.3 mmol/L Final Chloride 10/16/2022 101 98 - 107 mmol/L Final Bicarbonate 10/16/2022 28 21 - 32 mmol/L Final Anion Gap 10/16/2022 14 10 - 20 mmol/L Final Urea Nitrogen 10/16/2022 15 6 - 23 mg/dL Final Creatinine 10/16/2022 0.73 0.50 - 1.05 mg/dL Final GFR Female 10/16/2022 85 >90 mL/min/1.73m2 Final Comment: CALCULATIONS OF ESTIMATED GFR ARE PERFORMED USING THE 2020 CKD-EPI STUDY REFIT EQUATION WITHOUT THE RACE VARIABLE FOR THE IDMS-TRACEABLE CREATININE METHODS. https://jasn.asnjournals.org/content/early/ASN.1080510200 Calcium 10/16/2022 9.7 8.6 - 10.6 mg/dL Final Albumin 10/16/2022 4.2 3.4 - 5.0 g/dL Final Alkaline Phosphatase 10/16/2022 42 33 - 136 U/L Final Total Protein 10/16/2022 6.6 6.4 - 8.2 g/dL Final AST 10/16/2022 13 9 - 39 U/L Final Total Bilirubin 10/16/2022 0.7 0.0 - 1.2 mg/dL Final ALT (SGPT) 10/16/2022 13 7 - 45 U/L Final Comment: Patients treated with Sulfasalazine may generate falsely decreased results for ALT. Orders Only on 10/16/2022 Component Date Value Ref Range Status Phosphorus 10/16/2022 3.8 2.5 - 4.9 mg/dL Final Comment: The performance characteristics of phosphorus testing in heparinized plasma have been validated by the individual laboratory site where testing is performed. Testing on heparinized plasma is not approved by the FDA; however, such approval is not necessary. Orders Only on 10/16/2022 Component Date Value Ref Range Status Vitamin B-12 10/16/2022 236 211 - 911 pg/mL Final Orders Only on 10/16/2022 Component Date Value Ref Range Status Vitamin D, 25-Hydroxy 10/16/2022 53 ng/mL Final Comment: . DEFICIENCY: < 20 NG/ML INSUFFICIENCY: 20-29 NG/ML SUFFICIENCY: 30-100 NG/ML THIS ASSAY ACCURATELY QUANTIFIES THE SUM OF VITAMIN D3, 25-HYDROXY AND VIT D2,25-HYDROXY. Orders Only on 10/16/2022 Component Date Value Ref Range Status Uric Acid 10/16/2022 5.8 2.3 - 6.7 mg/dL Final Comment: Venipuncture immediately after or during the administration of Metamizole may lead to falsely low results. Testing should be performed immediately prior to Metamizole dosing. Orders Only on 10/16/2022 Component Date Value Ref Range Status Protein, Ur 10/16/2022 551 (H) 5 - 24 mg/dL Final Creatinine, Urine 10/16/2022 151.0 20.0 - 320.0 mg/dL Final Prot/Creat, Ur 10/16/2022 3.65 (H) 0.00 - 0.17 mg/mg Creat Final There may be more visits with results that are not included. Current Outpatient Medications on File Prior to Visit Medication Sig Dispense Refill albuterol 90 mcg/actuation inhaler Inhale 2 puffs every 4 hours if needed. amLODIPine (Norvasc) 5 mg tablet Take 1 tablet (5 mg) by mouth once daily. 90 tablet 0 aspirin 81 mg EC tablet Take 1 tablet (81 mg) by mouth once daily. atovaquone (Mepron) 750 mg/5 mL suspension Take by mouth once daily. cholecalciferol (Vitamin D-3) 50 MCG (2000 UT) tablet Take 2 tablets (4,000 Units) by mouth once daily. citalopram (CeleXA) 20 mg tablet Take 1 tablet (20 mg) by mouth once daily. 90 tablet 3 clindamycin (Cleocin T) 1 % lotion twice a day. Apply sparingly and massage in ezetimibe (Zetia) 10 mg tablet Take 1 tablet (10 mg) by mouth once daily. fluocinonide (Lidex) 0.05 % external solution 1 (one) time each day. Apply to affected areas fluticasone (Flonase) 50 mcg/actuation nasal spray Administer 1 spray into each nostril once daily.Shake gently. Before first use, prime pump. After use, clean tip and replace cap. 16 g 1 icosapent ethyL (Vascepa) 1 gram capsule Take 2 capsules (2 g) by mouth twice a day. Kerendia 10 mg tablet tablet Take 1 tablet (10 mg) by mouth once daily. lansoprazole (Prevacid) [address] capsule Take 1 capsule (30 mg) by mouth once daily. 90 capsule 3 linagliptin-metformin (Jentadueto XR) 2.5-1,000 mg tablet, IR - ER, biphasic 24hr Take 2 tablets bymouth once daily. 180 tablet 3 losartan (Cozaar) 100 mg tablet Take 1 tablet (100 mg) by mouth once daily. 90 tablet 3 metoprolol tartrate (Lopressor) 25 mg tablet Take 1 tablet (25 mg) by mouth in the morning and 1 tablet (25 mg) before bedtime. 180 tablet 3 predniSONE (Deltasone) 5 mg tablet 10 then 9 then 8 then 7 etc. until gone 55 tablet 0 rosuvastatin (Crestor) 10 mg tablet Take 1 tablet (10 mg) by mouth once daily. 90 tablet 3 colchicine 0.6 mg tablet 1 tablet Orally No current facility-administered medications on file prior to visit. No images are attached to the encounter. Assessment/Plan Diagnoses and all orders for this visit: Organized pneumonia (CMS/HCC) 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 without complication, with long-term current use of insulin (CMS/HCC) Lung nodule seen on imaging study Abnormal weight loss Patient to take prednisone and her atavaquone Patient to continue to watch her blood sugars and her diet because of the new prednisone Patient to continue her diabetic medication Patient to follow up with nephrology Patient to call if questions or concerns [facility] Phone: [phone]) 586-518902-27-2024 History of Present illness Narrative* Stephanie Arana DO - 10/13/2023 9:00 AM EST [facility] Medicine [address] [place], [place] [id number] Pulmonary Patient Visit 10/12/2023 Referring Physician: CELIA AL DO Reason for Referral: Lung Nodules 09/29/23 History of Present Illness Rolando Peters is a 78 y.o. female with history of stage I triple negative breast cancer s/p left mastectomy 05/2011, right-sided breast cancer s/p mastectomy 06/1994 s/p adjuvant chemo/tamoxifen, CKD who presented for evaluation of multiple PET avid pulmonary nodules. Patient reported she follows with oncology Dr. Marcus. Stated that she was referred to Dr. Marcus as she has had progressive weightloss, about 50 pounds since 07/2022. Admitted to a chronic mostly nonproductive cough and postnasaldrip. Reported progressive CRUZ with stairs, denied any shortness of breath at rest. Stated she was diagnosed with exercise-induced asthma several years ago, has an albuterol inhaler which she rarely requires. Denied any hemoptysis, chest pain, night sweats. Initially diagnosed with INGA in 2007, completed PSG and prescribed CPAP with nasal mask, but has not been compliant. 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 I used the followingTelehealth technology: Audio capability only. Total length of call 15 minutes. The patient was offered and advised video for a more comprehensive evaluation, but the patient declined or was unable touse video. Patient location: Patient Location: Home. This patient encounter is appropriate and reasonable under the circumstances. The patient has been advised of the potential risks and limitations of this mode of treatment (including but not limited to the absence of in-person examination) andhas agreed to be treated in a remote fashion in spite of them. Any and all of the patient's/patient's family's questions on this issue have been answered and I have made no promises or guarantees to the patient. The patient has also been advised to contact this office for worsening conditions or problems, and seek emergency medical treatment and/or call 911 if the patient deems either necessary. The patient stated that they are currently in the [facility]. If the patient is a minor, permission has been obtained by the parent or guardian for the patient to receive medical care at this visit. S/p ENB/EBUS 10/05/22. Procedure complicated by pneumothorax requiring chest tube. Patient reports feeling well since being discharged. Admitted to blood- tinged sputum postprocedure which has since resolved. Admitted to chronic CRUZ with stairs, denied any shortness of breath at rest, chest pain. PastMedical History Past Medical History: Diagnosis Date Arthritis Asthma Breast cancer (HCC) 1993 Right Breast(Mastectomy) Breast cancer (HCC) 2010 Left Breast(Simple Mastectomy, SLND) Chronic kidney disease Diabetes (HCC) GERD (gastroesophageal reflux disease) High blood pressure Occlusion and stenosis of unspecified carotid artery Pure hypercholesterolemia Syncope and collapse 08/29/2022 Past Surgical History Past Surgical History: Procedure Laterality Date CAROTID ENDARTERECTOMY Right 2009 CATARACT EXTRACTION Bilateral 2006 CHEST TUBE INSERTION Right 10/05/2023 HC ENDOBRONCHIAL ULTRASOUND EBUS (HISTORICAL) 10/05/2023 MASTECTOMY Left 2010 simple/reconstruction/gingivagrapht MASTECTOMY Right 1993 reconstruction (TRAM) TOTAL ABDOMINAL HYSTERECTOMY W/ BILATERAL SALPINGOOPHORECTOMY 1998 TUBAL LIGATION 1979 Allergies Allergies Allergen Reactions Isosulfan Blue Anaphylaxis Methylene Blue Sulfa Antibiotics Rash Medications Medication Documentation Review Audit Reviewed by Masood Pedersen RN (Registered Nurse) on 10/05/23 at 0724 Medication Order Taking? Sig Documenting Provider Last Dose Status albuterol 108 (90 Base) MCG/ACT inhaler [id number] No albuterol sulfate HFA 90 mcg/actuation aerosol inhaler Historical ProviderMD More than a month Active aspirin 81 MG chewable tablet [id number] No daily. Historical ProviderMD 10/02/2023 Active cholecalciferol (Vitamin D-3) 50 MCG (1999) tablet [id number] Yes Take 4,000 Units by mouth daily.Historical ProviderMD 10/04/2023 Active citalopram (CeleXA) 20 MG tablet [id number] Yes Take 20 mg by mouth daily. Abebe ProviderMD 10/04/2023 Active ezetimibe (Zetia) 10 MG tablet [id number] Yes Take 1 tablet (10 mg) by mouth in the morning. Marcia Correa APRN - FRANSISCO 10/04/2023 Active Finerenone (Kerendia) 10 MG tablet [id number] Yes Take 1 tablet by mouth daily. Historical ProviderMD 10/04/2023 Active Jentadueto XR 2.5-1000 MG per 24 hr tablet [id number] Yes take 2 tablets by mouth once daily Historical ProviderMD 10/04/2023 Active lansoprazole (Prevacid) [address] capsule [id number] Yes 1 capsule in the morning. Abebe Spaulding MD 10/04/2023 Active losartan (Cozaar) 100 MG tablet [id number] Yes losartan 100 mg tablet Abebe ProviderMD 10/04/2023 Active metoprolol tartrate (Lopressor) 25 MG tablet [id number] Yes metoprolol tartrate 25 mg tablet Abebe ProviderMD 10/04/2023 Active rosuvastatin (Crestor) 10 MG tablet [id number] Yes daily. 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 Physical Exam There were no vitals filed for this visit. Physical Exam Constitutional: Comments: Limited exam, audio visit Pulmonary: Comments: Speaking comfortably in full sentences Neurological: Mental Status: She is oriented to person, place, and time. Labs: Available studies were reviewed Radiology: Personally reviewed and interpreted Chest CT 08/24/2023: Interval development of scattered focal consolidations in the lungs, particularly in the apical left lung lobes as discussed. Recommended short-term follow-up imaging to document resolution. Interval development of new lateral right middle lung lobe nodule with interval enlargement of other previously noted nodules as discussed. Further clinical attention and workup is warranted. Moderate pulmonary emphysema. Coronary and aortic atherosclerosis. Other chronic findings as discussed. PET/CT 09/17/23: 1 cm irregular nodular density within the lateral aspect of the right upper lobe onthe low-dose CT images demonstrates intense FDG accumulation, consistent with malignancy. A 7 mm nodular density within the anteromedial right lower lobe also demonstrates abnormal FDG accumulation, suspicious for malignancy. A streaky density within the left lower lobe on the low-dose CT images demonstrates mild FDG accumulation, less than typically expected for malignancy. A small, somewhat streaky nodular density within the medial aspect of the right lower lobe also demonstrates mild FDG uptake. There is a linear density at the posterior aspect of the left lung apex which demonstrate mild to moderate FDG accumulation which is nonspecific, however the linear configuration of this area is more suggestive of an inflammatory etiology. CT follow-up of these findings is recommended. No evidence of regional edmond or distant metastatic disease. PFT's: Assessment/plan: Hypermetabolic pulmonary nodules, OP Hx breast ca s/p B/L mastectomies CRUZ Post nasal drip INGA Former smoker -Chest imaging previously reviewed with patient and spouse, discussed multiple new or enlarging pulmonary nodules. Most avid nodules are SUV 7.2 right middle lobe and SUV 4.9 right lower lobe. Left upper lobe streaky density has moderate uptake SUV 3.2. No avid lymphadenopathy. -S/p ENB/EBUS 10/05/22. 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 Right middle lobe biopsy also with adjacent acellular material. TBNA with RML with atypical cells, RLL nondiagnostic, LN 7, 4R, 11R negative for malignancy. Pneumonia PCR, bacterial culture, fungal stain/culture, AFB stain/culture, silver stain, Aspergillus galactomannan, beta D glucan negative/NGTD. Results reviewed with patient. -Discussed that since patient had pneumothorax during procedure, biopsies may not be accurate but organizing pneumonia could account for clinical picture of avidity on PET scan, bilateral nodular infiltrates, recent weight loss, and CRUZ. Will treat with high-dose prednisone 60 mg daily with taper by 10 mg every 2 weeks until 20mg daily and then slow taper. Will start PCP prophylaxis, patient has sulfa allergy, will start atovaquone while on prednisone 20 mg or greater. PFTs pending. Will repeatchest CT in 4-6 weeks, if nodules are not improving will discuss CT-guided biopsy. -Will notify patient's PCP Dr. Al as she is being treated for diabetes, may need medication adjustment while on steroids -Noted with emphysema on CT and patient has had progressive CRUZ. PFTs pending. Continue with albuterol as needed. -Patient reported she is noncompliant with her CPAP as she is unable to tolerate anything around her nose. Follow up: After CT to review results Please seek immediate medical attention for any worsening or worrying new symptoms. Patient education, benefits, risks, and precautions provided. Management plan was discussed in detail and in agreement. All questions or concerns answered to satisfaction and understood. On this date, I spent 30 minutes reviewing previous test results and with the patient discussing the diagnosis and importance of compliance with the treatment plans as well as documentation on the day of the visit. Stephanie Arana DO 9:24 AM 10/12/23 Pulmonary and Critical Care Medicine documented in this [facility]02-20-2024 Note* Significant Event - Emeka Green MD - 10/06/2023 6:16 PM EST Chest tube removed at bedside, CXR reviewed without Large ptx after clamping. [facility] Phone: 1(302) 858-752402-20-2024 Note* Significant Event - Emeka Green MD - 10/06/2023 6:16 PM EST Chest tube removed at bedside, CXR reviewed without Large ptx after clamping. [facility] Phone: 1(803) 832-449502-20-2024 Miscellaneous Notes* Significant Event - Emeka Green MD - 10/06/2023 6:16 PM EST Chest tube removed at bedside, CXR reviewed without Large ptx after clamping. Ok for discharge * Care Coordination - Sukumar Hernandez RN - 10/06/2023 4:09 PM EST Care Managment Initial Assessment Date: 10/06/2023 Patient Name: Rolando Peters : 1945 Patient Information Source of Information: Patient Cognition/Language: WFL - Within Functional Limits, Other (Comment) Permission given to speak with patient customer support representative/caregiver as indicated: Yes Confirmation of Payer with patient/family: Yes Payer Name: [employer] Medicare : No Confirmation of Primary Care Physician: Confirmed PCP Name: Dr. Maggie Al Seen in last 2 years?: Yes Primary Caregiver: Self If assistance needed, confirmed caregiver ready, willing and able to care for patient at discharge:Yes Confirmed with: Sister Angie and spouse Bill Living Arrangements Current Residence: House Number of Floors 3 (split with 2 to enter. 5 between floors) Number of Entry Steps: Bed/Bath Levels: Separate floors Facility: Facility Name: Plan to Return: Yes Lives with: Spouse/significant other Support Systems: Spouse/significant other, Family members Activities of Daily Living Ambulation: Independent Bathing/Dressing: Independent Elimination/Continence/Toileting: Independent Feeding: Independent Who Assists with Activities of Daily Living: self Instrumental Activities of Daily Living Prescription Coverage: Yes Pharmacy Used: [facility] Medication Management: Independent Transportation/Shopping: Independent Transportation Mode: Car Needs Assistance with Transportation at Discharge: No (sister Angie) Meal Preparation: Independent Laundry/Cleaning: Independent Finances/Bill Paying: Independent Communication: Independent Types of Care Services/Equipment Utilized Care Services: (Not active) Dialysis Type: NA Durable Medical Equipment: DME Provider: owns DME if needed: Walkers , Canes. does not use or need at present Patient's Goal/Discharge Plan Patient expects to be discharged to: home Discharge Planning Actions: No needs identified Patient's Choice Rights and [employer] and Collaborative Relationships Disclosed as Indicated for Post-Acute Care: NA Interdisciplinary Team Engagement: Social Work Referral for: Additional Information: Pt admitted post Bronchoscopy for acute post procedural pneumothorax that required CT insertion R 4the intercostal space under sedation 10/05/23. Pt with hx of triple negative breast cancer and is s/pLeft Mastectomy 05/2011 and R breast cancer w mastectomy June 1994. S/p Adjuvant chemo/tamoxifen. Pt was found to have hypermetabolic pulmonary nodules and underwent EBUS/ENB Bronchoscopy. Placed on supplemental O2. Weaned to RA Serial CXR ordered. IA completed at bedside with pt and her sister Angie. Introduced self and role. Permission to complete interview in presence of sister granted. Pt reporst living in a split level home with her spouse Jin. Pt reports 1-2 steps to enter with 5 steps in between floors. Pt reports prior level of function as Independent able to drive complete ADL's and IADL's independently Pharmacy is [facility] and pcp confirmed as in [employer]. Pt's DCP: home no needs with sister Angie to transport. Awaiting Repeat CXR at 4 pm and if okay by pulmonary pt anticipates dc home this pm. Tcc to follow. Sukumar Hernandez RN * Care Coordination - SUJATA Mendoza CNP - 10/06/2023 2:00 PM EST Patient awake sitting up in bed talking with her sister who is at the bedside. Denied any chest pain or shortness of breath. Stable on room air. Reports the discomfort around insertion site of chest tube is better now. Chest tube clamped. Plan to have repeat CXR at [address] Green to evaluate repeat CXR and if stableplan for possible removal of chest tube tonight. * Perioperative Nursing Note - Betsey Metcalf RN - 10/05/2023 2:43 PM EST Report to laney to 1 east via cart family at bedside and updated * Perioperative Nursing Note - Betsey Metcalf RN - 10/05/2023 1:11 PM EST To ivr for chest tube placement * Perioperative Nursing Note - Betsey Metcalf RN - 10/05/2023 10:[address] pereira came to bedside and updated pt on plan of care will need chest tube for pneumo at bedside and updated * Care Coordination - Stephanie Arana DO - 10/05/2023 10:18 AM EST Post procedure chest xray with right sided pneumothorax. Patient asymptomatic. Vital signs stable, decreased breath sounds right side. Discussed with IR for chest tube placement with admission to hospital afterwards. Updated patient and family. Inpatient pulmonary team aware and will follow. * Brief Op Note - Stephanie Arana DO - 10/05/2023 8:06 AM EST Date: 10/05/2023 Location: [facility] ENDOSCOPY Name: Rolando Peters, : 1945, Diagnosis Pre-op Diagnosis * Other nonspecific abnormal finding of lung field [R91.8] Post-op Diagnosis * Other nonspecific abnormal finding of lung field [R91.8] Procedures ELECTROMAGNETIC NAVIGATIONAL BRONCHOSCOPY, : ENDOBRONCHIAL ULTRASOUND BRONCHOSCOPY WITH X-RAY 10630 - DE BRONCHOSCOPY W/CPTR-ASST IMAGE-GUIDED NAVIGATION ENB/EBUS 85409 - DE BRNSCHSC TNDSC EBUS DX/TX INTERVENTION [facility] * Stephanie Arana - Primary Procedure Summary Anesthesia: General ASA: III Estimated Blood Loss: Minimal Drains: * None in log * Specimens ID Source Type Tests Collected By Collected At Frozen? Priority Lab ID 1 Lung, Right Middle Lobe Transbronchial Needle Aspirate FINE NEEDLE ASPIRATION Stephanie Arana, DO 10/05/23 0846 Description: RML 2 Lung, Right Middle Lobe Tissue TISSUE EXAM Stephanie BhatiaStormChavez, DO 10/05/23 0846 Description: RML 3 Lung, Right Lower Lobe Transbronchial Needle Aspirate FINE NEEDLE ASPIRATION Stephanie BhatiaStormChavez, DO 10/05/23 0905 Description: RLL 4 Lung, Right Lower Lobe Tissue TISSUE EXAM Stephanie BhatiaStormChavez, DO 10/05/23 0905 Description: RLL 5 Mediastinal Lymph Node Station 7 Transbronchial Needle Aspirate FINE NEEDLE ASPIRATION Stephanie BhatiaStormChavez, DO 10/05/23 0908 Description: 7 6 Mediastinal Lymph Node Station 4L Transbronchial Needle Aspirate FINE NEEDLE ASPIRATION Stephanie BhatiaStormChavez, DO 10/05/23 0911 Description: 4L 7 Mediastinal Lymph Node Station 4R Transbronchial Needle Aspirate FINE NEEDLE ASPIRATION Stephanie BhatiaStormChavez, DO 2/19/24 0919 Description: 4R 8 Mediastinal Lymph Node Station 11R Transbronchial Needle Aspirate FINE NEEDLE ASPIRATION Stephanie Arana DO 10/05/23924 Description: 11R Staff: Margarine Churn Operator: Vianey Lucas RT (R) Pathologist: Shannon Quinteros MD PhD Audio Production Manager: Kimi Jones, CT Endo Nurse: Nolan Jackson RN; Epifanio Bruce RN Findings: S/p ENB with transbronchial biopsies, TBNA, brushings and BAL of RML and RLL pulmonary nodules. S/p EBUS with TBNA of lymph nodes 4L, 7, 4R and 11R. Please refer to provation note for further details. Complications: None; patient tolerated the procedure well. Specimens Collected: No specimens collected during this procedure. * Op Note - Stephanie Arana DO - 10/05/2023 7:39 AM [facility] Rol[facility] Procedure Date: 10/05/2023 7:39 AM Gender: Female Date of : 1945 Age: 78 Admit Type: Outpatient Note Status: Addendum Attending MD: Stephanie Arana DO, [id number] Procedure: Bronchoscopy Indications: Right middle lobe nodule, Right lower lobe nodule Findings: The endotracheal tube is in good position. The visualized portion of the trachea is of normal caliber. The teagan is sharp. The tracheobronchial tree was examined to at least the first subsegmental level. Bronchial mucosa and anatomy are normal; there are no endobronchial lesions, and no secretions. Electromagnetic navigation bronchoscopy utilizing the [employer] system was performed. A pre-procedure CT scan was used for planning purposes. A virtual bronchoscopic image was generated using the planning software. The target in the right middle lobe (located in the peripheral one-third of the lung) was marked. A solid nodule 1.4 cm in size was found and a pathway was created. After a complete airway exam, the locatable guide/extended working channel was inserted. The navigation phase was then begun to locate the target lesion(s). The locatable guide was removed from the extended working channel. Transbronchial biopsies of a solid nodule were performed in the right middle lobe using a 21 gauge needle and sent for routine cytology. The procedure was guided by fluoroscopy. Transbronchial biopsy technique was selected because the sampling site was not visible endoscopically. The sampling device penetrated the full thickness of the bronchial wall to obtain the biopsy of lung tissue. Six biopsy passes were performed. Transbronchial biopsies of a solid nodule were performed in the right middle lobe using forceps and sent for histopathology examination. The procedure was guided by fluoroscopy. Transbronchial biopsy technique was selected because the sampling site was not visible endoscopically. The sampling device penetrated the full thickness of the bronchial wall to obtain the biopsy of lung tissue. Six biopsy passes were performed. Fluoroscopy guided transbronchial brushings of a solid nodule were obtained in the right middle lobe with a cytology brush and sent for bacterial culture, fungal & AFB analysis and cytology. Two samples were obtained. Transbronchial brushing technique was selected because the sampling site was not visible endoscopically. The sampling device penetrated the full thickness of the bronchial wall to obtain the brushings of lung tissue. The bronchoscope was advanced until wedged at the desired location for bronchoalveolar lavage. BAL was performed in the right middle lobe of the lung and sent for cell count, bacterial culture, aspergillus galactmannan, beta d glucan, fungal & AFB analysis and cytology. 80 mL of fluid were instilled. 25 mL were returned. The return was blood-tinged. Electromagnetic navigation bronchoscopy utilizing the [employer] system was performed. A pre-procedure CT scan was used for planning purposes. A virtual bronchoscopic image was generated using the planning software. The target in the right lower lobe (located in the middle one-third of the lung) was marked. A solid nodule 8 mm in size was found and a pathway was created. After a complete airway exam, the locatable guide/extended working channel was inserted. The navigation phase was then begun to locate the target lesion(s). The locatable guide was removed from the extended working channel. Transbronchial biopsies of a solid nodule were performed in the right lower lobe using a 21 gauge needle and sent for routine cytology. The procedure was guided by fluoroscopy. Transbronchial biopsy technique was selected because the sampling site was not visible endoscopically. The sampling device penetrated the full thickness of the bronchial wall to obtain the biopsy of lung tissue. Six biopsy passes were performed. Transbronchial biopsies of a solid nodule were performed in the right lower lobe using forceps and sent for histopathology examination. The procedure was guided by fluoroscopy. Transbronchial biopsy technique was selected because the sampling site was not visible endoscopically. The sampling device penetrated the full thickness of the bronchial wall to obtain the biopsy of lung tissue. Six biopsy passes were performed. Fluoroscopy guided transbronchial brushings of a solid nodule were obtained in the right lower lobe with a cytology brush and sent for bacterial culture, fungal & AFB analysis and cytology. Two samples were obtained. Transbronchial brushing technique was selected because the sampling site was not visible endoscopically. The sampling device penetrated the full thickness of the bronchial wall to obtain the brushings of lung tissue. The bronchoscope was advanced until wedged at the desired location for bronchoalveolar lavage. BAL was performed in the right lower lobe of the lung and sent for bacterial culture, fungal & AFB analysis and cytology. 80 mL of fluid were instilled. 35 mL were returned. The return was blood-tinged. An endobronchial ultrasound endoscope was utilized in order to assist with fine needle aspiration of the hilar and paratracheal lymph nodes. Transbronchial needle aspirations were performed using a [employer] Expect 25 gauge needle and sent for routine cytology. The procedure was guided by ultrasound. Transbronchial needle aspiration technique was selected because the sampling site was not visible endoscopically. The sampling device penetrated the full thickness of the bronchial wall to obtain the needle aspiration of lymph node tissue. Four to six samples were obtained each from lymph nodes 4L, 7, 4R, and 11R. Impression: - Right middle lobe nodule - Right lower lobe nodule - The airway examination was normal. - Electromagnetic navigation bronchoscopy was performed. - Transbronchial lung biopsies were performed. - Transbronchial lung biopsies were performed. - Transbronchial brushings were obtained. - Bronchoalveolar lavage was performed. - Electromagnetic navigation bronchoscopy was performed. - Transbronchial lung biopsies were performed. - Transbronchial lung biopsies were performed. - Transbronchial brushings were obtained. - Bronchoalveolar lavage was performed. - Endobronchial ultrasound was performed. - A transbronchial needle aspiration was performed. Recommendation: - Discharge patient to home. - Await BAL, biopsy, brushing, culture and cytology results. - Patient has a contact number available for emergencies. The signs and symptoms of potential delayed complications were discussed with the patient. Return to normal activities tomorrow. Written discharge instructions were provided to the patient. - Follow up with bronchoscopist in one week. Referring MD: Maggie Al Medicines: General Anesthesia, See the Anesthesia note for documentation of the administered medications Procedure: Pre-Anesthesia Assessment: - A History and Physical has been performed. The patient's medications, allergies and sensitivities have been reviewed. After I obtained informed consent, the scope was passed under direct vision. Throughout the procedure, the patient's blood pressure, pulse, and oxygen saturations were monitored continuously. The Bronchoscope was introduced through the mouth, via the endotracheal tube (the patient was intubated for the procedure) and advanced to the tracheobronchial tree of both lungs. The procedure was accomplished without difficulty. The patient tolerated the procedure well. Complications: No immediate complications Moderate Sedation: See the Anesthesia note for documentation of the administered medications Comorbidities Refer to note in patient chart for documentation of history and physical. Procedure Code(s): --- Professional --- 12108, Bronchoscopy, rigid or flexible, including fluoroscopic guidance, when performed; with transbronchial needle aspiration biopsy(s), trachea, main stem and/or lobar bronchus(i) 35482, Bronchoscopy, rigid or flexible, including fluoroscopic guidance, when performed; with transbronchial lung biopsy(s), single lobe 81334, Bronchoscopy, rigid or flexible, including fluoroscopic guidance, when performed; with bronchial alveolar lavage 33305, Bronchoscopy, rigid or flexible, including fluoroscopic guidance, when performed; with brushing or protected brushings 07072, Bronchoscopy, rigid or flexible, including fluoroscopic guidance, when performed; with computer-assisted, image-guided navigation (List separately in addition to code for primary procedure[s]) 71683, Bronchoscopy, rigid or flexible, including fluoroscopic guidance, when performed; with transendoscopic endobronchial ultrasound (EBUS) during bronchoscopic diagnostic or therapeutic intervention(s) for peripheral lesion(s) (List separately in addition to code for primary procedure[s]) CPT copyright 2021 [employer]. All rights reserved. The codes documented in this report are preliminary and upon structural steel detailer review may be revised to meet current compliance requirements. Attending Participation: I personally performed the entire procedure. Stephanie Arana, DO 10/05/2023 9:52:07 AM This report has been signed electronically. Number of Addenda: 1 Note Initiated On: 10/05/2023 7:39 AM Addendum Number: 1 Addendum Date: 10/05/2023 10:35:02 AM Post procedure chest xray with right pneumothorax. Patient's vital signs stable and asymptomatic. Pending chest tube placement and admission to hospital for monitoring. Patient and family updated. Stephanie Roseann Arana DO 10/05/2023 10:36:02 AM This report has been signed electronically. documented in this [facility]02-20-2024 Hospital course Narrative* Zari Soria MD - 10/06/2023 6:10 PM EST Discharge Summary Rolando Peters : 1945 ADMIT DATE: 10/05/2023 DISCHARGE DATE: 10/06/2023 PRIMARY CARE PHYSICIAN: CELIA AL VISIT STATUS: Admission CODE STATUS: Full Code DISCHARGE DIAGNOSES: Principal Problem: Other nonspecific abnormal finding of lung field Active Problems: Pneumothorax HOSPITAL COURSE: Rolando is a 78 y.o. female with past medical history of BL breast cancer s/p mastectomy and chemo, former smoker, asthma, emphysema, HTN, GERD, HLD, anxiety/depression . who presents to [facility] on 10/05/2023 with chief complaint of acute pneumothorax. Patient had outpatient bronchoscopy for multiple pulmonary nodules. Biopsies obtained, imaging showed pneumothorax. Endorses mild chest pain and discomfort but denies SOB. Denies abdominal pain, nausea, vomiting, diarrhea, constipation, fevers, or chills. Initial vitals showed VSS, patient on 3L via NC. Imaging showed pneumothorax small to moderate in size at right apical lung . Patient had chest tube placed by IR. Patient admitted for further management of acute pneumothorax and chest tube s/p bronchoscopy. The following is a summary of her diagnosis/management during her stay here at [facility]: Acute pneumothorax s/p bronchoscopy on 10/05/23 Small to moderate right apical pneumothorax Multiple pulmonary nodules, hypermetabolic IR to place Chest tube Pulmonology on consult for chest tube management - Chest tube clamped earlier today and CXR repeated at [address] Green evaluated repeat CXR and patient had removal of chest tube this afternoon per IR. AYO Sharma reached out as Dr. Green has cleared for discharge to home. Hx of BL Breast cancer s/p mastectomy S/p chemo Progressive weight loss Lost 50lbs since July 2022 Asthma Former smoker Emphysema Duonebs PRN Pulmonology on consult DM type 2 SSI Diabetic diet GERD HTN Metoprolol, losartan HLD Zetia Anxiety/depression Celexa Physical exam: Cardiovascular: S1/S2 heard, RRR Respiratory: Clear to auscultation bilaterally Abdomen: Soft, non-tender, non-distended bowel sounds positive Musculoskeletal: No obvious deformities seen Skin: No visible rashes or lesions. SIGNIFICANT DIAGNOSTIC STUDIES: As above CONSULTANTS: Pulmonary RECOMMENDED NEXT STEPS: DISCHARGE MEDICATIONS: Medication List CONTINUE taking these medications albuterol 108 (90 Base) MCG/ACT inhaler amLODIPine 5 MG tablet Commonly known as: Norvasc aspirin 81 MG chewable tablet cholecalciferol 50 MCG (2000 UT) tablet Commonly known as: Vitamin D-3 citalopram 20 MG tablet Commonly known as: CeleXA ezetimibe 10 MG tablet Commonly known as: Zetia Take 1 tablet (10 mg) by mouth in the morning. fluticasone 0.05 % cream Commonly known as: Cutivate fluticasone 50 MCG/ACT nasal spray Commonly known as: Flonase Jentadueto XR 2.5-1000 MG per 24 hr tablet Generic drug: linaGLIPtin-metFORMIN ER Kerendia 10 MG tablet Generic drug: Finerenone lansoprazole [address] capsule Commonly known as: Prevacid losartan 100 MG tablet Commonly known as: Cozaar metoprolol tartrate 25 MG tablet Commonly known as: Lopressor rosuvastatin 10 MG tablet Commonly known as: Crestor Vascepa 1 g capsule Generic drug: Icosapent Ethyl TAKE 2 CAPSULES BY MOUTH 2 TIMES DAILY DIET: Adult diet Regular; 5 carb choices (75 gm/meal) ACTIVITY: No restriction. COMPLEXITY OF FOLLOW UP: [] Moderate Complexity: follow up within 7-14 calendar days (09846) [] Severe Complexity: follow up within 7 calendar days (08973) FOLLOW UP TESTING, PENDING RESULTS OR REFERRALS AT TRANSITIONAL CARE VISIT: [] Yes [] No PENDING STUDIES: DISPOSITION: Home FACILITY/HOME CARE AGENCY NAME: Follow up with Stephanie Arana DO [address] [place] [id number] Follow up on 10/13/2023 INSTRUCTIONS TO MA/SW: Please call patient on day after discharge (must document patient contacted within 2 business days of discharge). FOLLOW UP QUESTIONS FOR MA/SW: 1. Did you get medications filled and taking them as instructed from discharge? 2. Are you following your discharge instructions from your hospital stay? 3. Please confirm patient is scheduled for a follow up appointment within the above time frame. DISCHARGE TIME: > 31 minutes SIGNED: ZARI SORIA MD 10/06/2023, 6:10 PM documented in this [facility]02-20-2024 Note* Care Coordination - Sukumar Hernandez RN - 10/06/2023 4:09 PM EST Care Managment Initial Assessment Date: 10/06/2023 Patient Name: Rolando Peters : 1945 Patient Information Source of Information: Patient Cognition/Language: WFL - Within Functional Limits, Other (Comment) Permission given to speak with patient customer support representative/caregiver as indicated: Yes Confirmation of Payer with patient/family: Yes Payer Name: [employer] Medicare [place]: No Confirmation of Primary Care Physician: Confirmed PCP Name: Dr. Maggie Al Seen in last 2 years?: Yes Primary Caregiver: Self If assistance needed, confirmed caregiver ready, willing and able to care for patient at discharge:Yes Confirmed with: Sister Angie and spouse Bill Living Arrangements Current Residence: House Number of Floors 3 (split with 2 to enter. 5 between floors) Number of Entry Steps: Bed/Bath Levels: Separate floors Facility: Facility Name: Plan to Return: Yes Lives with: Spouse/significant other Support Systems: Spouse/significant other, Family members Activities of Daily Living Ambulation: Independent Bathing/Dressing: Independent Elimination/Continence/Toileting: Independent Feeding: Independent Who Assists with Activities of Daily Living: self Instrumental Activities of Daily Living Prescription Coverage: Yes Pharmacy Used: [facility] Medication Management: Independent Transportation/Shopping: Independent Transportation Mode: Car Needs Assistance with Transportation at Discharge: No (sister Angie) Meal Preparation: Independent Laundry/Cleaning: Independent Finances/Bill Paying: Independent Communication: Independent Types of Care Services/Equipment Utilized Care Services: (Not active) Dialysis Type: NA Durable Medical Equipment: DME Provider: owns DME if needed: Walkers , Canes. does not use or need at present Patient's Goal/Discharge Plan Patient expects to be discharged to: home Discharge Planning Actions: No needs identified Patient's Choice Rights and [employer] and Collaborative Relationships Disclosed as Indicated for Post-Acute Care: NA Interdisciplinary Team Engagement: Social Work Referral for: Additional Information: Pt admitted post Bronchoscopy for acute post procedural pneumothorax that required CT insertion R 4the intercostal space under sedation 10/05/23. Pt with hx of triple negative breast cancer and is s/pLeft Mastectomy 05/2011 and R breast cancer w mastectomy June 1994. S/p Adjuvant chemo/tamoxifen. Pt was found to have hypermetabolic pulmonary nodules and underwent EBUS/ENB Bronchoscopy. Placed on supplemental O2. Weaned to RA Serial CXR ordered. IA completed at bedside with pt and her sister Angie. Introduced self and role. Permission to complete interview in presence of sister granted. Pt reporst living in a split level home with her spouse Jin. Pt reports 1-2 steps to enter with 5 steps in between floors. Pt reports prior level of function as Independent able to drive complete ADL's and IADL's independently Pharmacy is [facility] and pcp confirmed as in [employer]. Pt's DCP: home no needs with sister Angie to transport. Awaiting Repeat CXR at 4 pm and if okay by pulmonary pt anticipates dc home this pm. Tcc to follow. Sukumar Hernandez RN [phone] Note* Care Coordination - Sukumar Hernandez RN - 10/06/2023 4:09 PM EST Care Managment Initial Assessment Date: 10/06/2023 Patient Name: Rolando Peters : 1945 Patient Information Source of Information: Patient Cognition/Language: WFL - Within Functional Limits, Other (Comment) Permission given to speak with patient customer support representative/caregiver as indicated: Yes Confirmation of Payer with patient/family: Yes Payer Name: [employer] Medicare [place]: No Confirmation of Primary Care Physician: Confirmed PCP Name: Dr. Maggie Al Seen in last 2 years?: Yes Primary Caregiver: Self If assistance needed, confirmed caregiver ready, willing and able to care for patient at discharge:Yes Confirmed with: Sister Angie and spouse Bill Living Arrangements Current Residence: House Number of Floors 3 (split with 2 to enter. 5 between floors) Number of Entry Steps: Bed/Bath Levels: Separate floors Facility: Facility Name: Plan to Return: Yes Lives with: Spouse/significant other Support Systems: Spouse/significant other, Family members Activities of Daily Living Ambulation: Independent Bathing/Dressing: Independent Elimination/Continence/Toileting: Independent Feeding: Independent Who Assists with Activities of Daily Living: self Instrumental Activities of Daily Living Prescription Coverage: Yes Pharmacy Used: [facility] Medication Management: Independent Transportation/Shopping: Independent Transportation Mode: Car Needs Assistance with Transportation at Discharge: No (sister Angie) Meal Preparation: Independent Laundry/Cleaning: Independent Finances/Bill Paying: Independent Communication: Independent Types of Care Services/Equipment Utilized Care Services: (Not active) Dialysis Type: NA Durable Medical Equipment: DME Provider: owns DME if needed: Walkers , Canes. does not use or need at present Patient's Goal/Discharge Plan Patient expects to be discharged to: home Discharge Planning Actions: No needs identified Patient's Choice Rights and [employer] and Collaborative Relationships Disclosed as Indicated for Post-Acute Care: NA Interdisciplinary Team Engagement: Social Work Referral for: Additional Information: Pt admitted post Bronchoscopy for acute post procedural pneumothorax that required CT insertion R 4the intercostal space under sedation 10/05/23. Pt with hx of triple negative breast cancer and is s/pLeft Mastectomy 05/2011 and R breast cancer w mastectomy June 1994. S/p Adjuvant chemo/tamoxifen. Pt was found to have hypermetabolic pulmonary nodules and underwent EBUS/ENB Bronchoscopy. Placed on supplemental O2. Weaned to RA Serial CXR ordered. IA completed at bedside with pt and her sister Angie. Introduced self and role. Permission to complete interview in presence of sister granted. Pt reporst living in a split level home with her spouse Jin. Pt reports 1-2 steps to enter with 5 steps in between floors. Pt reports prior level of function as Independent able to drive complete ADL's and IADL's independently Pharmacy is [email or web address] and pcp confirmed as in [facility]. Pt's DCP: home no needs with sister Angie to transport. Awaiting Repeat CXR at 4 pm and if okay by pulmonary pt anticipates dc home this pm. Tcc to follow. Sukumar Hernandez RN [facility] [id number] Note* Care Coordination - SUJATA Mendoza CNP - 10/06/2023 2:00 PM EST Patient awake sitting up in bed talking with her sister who is at the bedside. Denied any chest pain or shortness of breath. Stable on room air. Reports the discomfort around insertion site of chest tube is better now. Chest tube clamped. Plan to have repeat CXR at [address] Green to evaluate repeat CXR and if stableplan for possible removal of chest tube tonight. [facility] [id number] Note* Care Coordination - SUJATA Mendoza CNP - 10/06/2023 2:00 PM EST Patient awake sitting up in bed talking with her sister who is at the bedside. Denied any chest pain or shortness of breath. Stable on room air. Reports the discomfort around insertion site of chest tube is better now. Chest tube clamped. Plan to have repeat CXR at [address] Green to evaluate repeat CXR and if stableplan for possible removal of chest tube tonight. [id number] History of Present illness Narrative* Zari Soria MD - 10/06/2023 12:25 PM EST Images from the original note were not included. Hospitalist Progress Note 10/06/[id number]: Please page me ([phone]) for patient care issues. [phone]: Please page [facility] Hospitalist for any issues. Subjective: Admit Date: 10/05/2023 PCP: CELIA AL, DO Room#: B1-151/B1-151 A Interval History: No overnight issues. Denies chest pain or sob. No abdominal pain, nausea, vomiting. No fevers or chills. Adult diet Regular; 5 carb choices (75 gm/meal) @[id number]@ 24HR INTAKE/OUTPUT: No intake or output data in the 24 hours ending 10/06/23 1225 Past Medical History: Past Medical History: Diagnosis Date Arthritis Asthma Breast cancer (HCC) 1993 Right Breast(Mastectomy) Breast cancer (HCC) 2010 Left Breast(Simple Mastectomy, SLND) Chronic kidney disease Diabetes (HCC) GERD (gastroesophageal reflux disease) High blood pressure Occlusion and stenosis of unspecified carotid artery Pure hypercholesterolemia Syncope and collapse 08/29/2022 LABS: CBC: Recent Labs 10/05/23 1038 10/06/23 0359 WBC 5.5 9.7 RBC 3.93 3.48* HGB 12.2 10.9* HCT 36.8 32.3* MCV 93.6 92.8 RDW 13.8 13.8 PLT 159 163 BMP: Recent Labs 10/05/23 1038 10/06/23 0359 NA 137 134* K 4.2 4.6 CL 107 104 CO2 24 27 BUN 16 19* CREATININE 0.71 0.75 GLUCOSE 150* 125* CALCIUM 8.3* 8.6 ANIONGAP 7 3 LIVER PROFILE:No results for input(s): AST, ALT, BILITOT, ALKPHOS, PROT in the last 72 hours. No lab exists for component: LABALBU PT/INR: Recent Labs 10/05/23 1038 PROTIME 10.7 INR 1.0 CARDIAC ENZYMES: No results for input(s): TROPONINI in the last 72 hours. Procalcitonin: No results found for: PROCAL COVID-19 PCR: No results for input(s): COVID19 in the last 72 hours. Objective: Vitals: BP 140/51 Pulse 78 Temp 36.4 C (97.6 F) (Temporal) Resp 16 Ht 5' 7 (1.702 m) Wt146 lb (66.2 kg) SpO2 93% BMI 22.87 kg/m Pulse Ox: SpO2 Av.6 % Min: 93 % Max: 99 % Supplemental O2: O2 Flow Rate (L/min): 2 L/min General appearance: No apparent distress, appears stated age, HEENT: Eyes: No scleral icterus Oral: Tongue is semi-moist Cardiovascular: S1/S2 heard, RRR Respiratory: Clear to auscultation bilaterally Abdomen: Soft, non-tender, non-distended bowel sounds positive Musculoskeletal: No obvious deformities seen Skin: No visible rashes or lesions. Medications: citalopram, 20 mg, Oral, Daily ezetimibe, 10 mg, Oral, Daily insulin lispro, 0-6 Units, SubCUTAneous, TID WC And insulin lispro, 0-6 Units, SubCUTAneous, Nightly losartan, 100 mg, Oral, Daily metoprolol tartrate, 25 mg, Oral, BID Assessment Acute pneumothorax s/p bronchoscopy on 10/05/23 Small to moderate right apical pneumothorax Multiple pulmonary nodules, hypermetabolic IR placed Chest tube Pulmonology on consult for chest tube management CXR daily as per pulmonary PRN pain medications Breathing treatments PRN Supplemental O2, wean as tolerated Hx of BL Breast cancer s/p mastectomy S/p chemo Progressive weight loss Lost 50lbs since July 2022 Asthma Former smoker Emphysema Duonebs PRN Pulmonology on consult and planning for outpatient pulmonary function test on 10/29/2023 DM type 2 SSI Diabetic diet GERD HTN Metoprolol, losartan HLD Zetia Anxiety/depression Celexa 14. INGA - Patient unable to tolerate mask for CPAP therefore has not been wearing Plan Repeat CXR pending. Pulmonary planning to clamp chest tube is XR okay. They also plan to repeat CXR4 hours AFTER clamping with possible removal this afternoon. Extended Emergency Contact Information Primary Emergency Contact: Jin Peters Address: [address] [place] [address] [place] [employer] Relation: Spouse Secondary Emergency Contact: Ene Negrete Address: [address] [place] [address] [facility] [employer] Relation: Child ZARI SORIA MD Division of Hospitalist Medicine Inpatient Medical Services/[facility] PAGER: Epic chat * Rosa Maria REYNOLD Munoz - 10/06/2023 12:06 PM EST Nutrition Assessment Type and Reason for Visit: Initial, Positive Nutrition Screen Nutrition Recommendations/Plan: Suggest continue diet as ordered Carbohydrate controlled -pt tolerating meals with good appetite/intake at this time Suggest A1c level if not already considered RD to monitor po intake, labs, weight; follow up weekly Malnutrition Assessment: Malnutrition Status: At risk for malnutrition (Comment) (weight loss, age) Context: Chronic Illness Findings of the 6 clinical characteristics of malnutrition: Energy Intake: Unable to assess (pt reports eating less since she has been getting older) Weight Loss: 20% over 1 year (pt reports gradual wt loss from 185# to current 146 lb >1 year. 5%loss noted over past 6 months per records but not considered clinically significant for malnutrition) Body Fat Loss: No significant body fat loss Muscle Mass Loss: Mild muscle mass loss Temples (temporalis), Clavicles (pectoralis & deltoids), Thigh (quadraceps), Calf (gastrocnemius) Fluid Accumulation: No significant fluid accumulation Nutrition Assessment: 78 y.o. female admits with Right-sided postprocedural pneumothorax s/p chest tube placement, multiple pulmonary nodules, with past medical history of BL breast cancer s/p mastectomy and chemo, formersmoker, asthma, emphysema, HTN, GERD, HLD, DM, CKD, anxiety/depression. pt reports unintentional 50# wt loss since ?07/2022. Pt reports good appetite at this time 100% meals consumed, observed tolerating lunch Estimated Daily Nutrient Needs: Energy Requirements Based On: Kcal/kg Weight Used for Energy Requirements: [place] Weight for Energy Calculation (kg): 61 kg Total Energy Requirements (kcals/day): 1012-8415 Weight in Kg Used for Protein Requirements: 61 kg Estimated Total Protein (g/day): 61-79 (1.0-1.3) Estimated Daily Total Fluid (ml/day): per MD Nutrition Related Findings: no edema, labs reviewed. pt reports gradual wt loss over past approx >1 year -pt attributes to not eating as much as she typically does and states she is a bad diabetic -doesn't follow diet Wound Type: None (chest tube) Current Nutrition Therapies: Adult diet Regular; 5 carb choices (75 gm/meal) Current Oral Intake Average Meal Intake: 76-100% (pt observed tolerating lunch with good appetite/ pt reports eating 100% meals) Average Supplements Intake: None Ordered Anthropometric Measures: Height: 170.2 cm (5' 7) Current Body Weight: 66.2 kg (146 lb) Weight Source: Stated Admission Body Weight: 66.2 kg (146 lb) Usual Body Weight: 81.2 kg (179 lb) (12/2020, 154# on 05/07/23) % Weight Change (Calculated): -18.4 [place] Body Weight (lbs) (Calculated): 135 lbs [place] Body Weight (Kg) (Calculated): 61 kg % [place] Body Weight (Calculated): 108.1 % BMI (kg/m2) (Calculated): 22.9 Weight Adjustment For: No Adjustment BMI Categories: Normal Weight (BMI 22.0 to 24.9) age over 65 Nutrition Diagnosis: Unintended weight loss related to (unclear etiology) as evidenced by weight loss Nutrition Interventions: Nutrition Education/Counseling: Education declined Coordination of Nutrition Care: Continue to monitor while inpatient Plan of Care discussed with: patient Goals: Goals: PO intake 75% or greater, by next RD assessment Nutrition Monitoring and Evaluation: Behavioral-Environmental Outcomes: None Identified Food/Nutrient Intake Outcomes: Food and Nutrient Intake Physical Signs/Symptoms Outcomes: Biochemical Data, GI Status, Nutrition Focused Physical Findings,Skin, Weight Discharge Planning: Continue current diet Rosa Maria Munoz RD Contact: *[phone] or via Secure Chat documented in this [facility]02-20-2024 Consult note* Stella Cortes APRN - WINDOWS TECHNICAL SPECIALIST - 10/06/2023 9:01 AM ESTAssociated Order(s): IP CONSULT TO PULMONOLOGY Images from the original note were not included. 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) Diabetes (HCC) History of bilateral mastectomy History of chemotherapy S/P breast reconstruction, bilateral Dyslipidemia BRCA1 positive History of anesthesia problem Spondylosis without myelopathy or radiculopathy, lumbosacral region Low back pain History of COVID-19 Orthostatic hypotension 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 female admitted for postprocedural pneumothorax. Patient with a history of stage I triple negative breast cancer s/p left mastectomy in May 2011, right-sided breast cancer s/p mastectomy June 1994 s/p adjuvant chemo/tamoxifen, CKD and hypermetabolic pulmonary nodules who presented to [facility] yesterday for EBUS/ENB bronchoscopy. Chest x-ray postprocedure showed small to moderate right-sided apical pneumothorax. IR placed right-sided 10 Togolese chest tube with one-wayvalve. Patient follows with Dr. Marcus oncology outpatient. She was diagnosed with exercise-induced asthmaseveral years ago and uses albuterol PRN. History of INGA diagnosed in 2007, she was prescribed a CPAP with nasal mask however is noncompliant. Quit smoking in 1990 with a 30-osvy-ewud history. Patient denies any chest pain, cough, shortness of breath. Does have some tenderness near insertionsite of chest tube. Remains on supplemental oxygen through the night for comfort however is stable on room air this morning. No new overnight concerns. She is hopeful to be able to go home today. Sister present at the bedside Medical History Past Medical History: Past Medical History: Diagnosis Date Arthritis Asthma Breast cancer (HCC) 1993 Right Breast(Mastectomy) Breast cancer (HCC) 2010 Left Breast(Simple Mastectomy, SLND) Chronic kidney disease Diabetes (HCC) GERD (gastroesophageal reflux disease) High blood pressure Occlusion and stenosis of unspecified carotid artery Pure hypercholesterolemia Syncope and collapse 08/29/2022 Past Surgical History: Past Surgical History: Procedure Laterality Date CAROTID ENDARTERECTOMY Right 2008 CATARACT EXTRACTION Bilateral 2006 CHEST TUBE INSERTION Right 10/05/2023 ENDOBRONCHIAL ULTRASOUND EBUS (HISTORICAL) 10/05/2023 MASTECTOMY Left 2010 simple/reconstruction/gingivagrapht MASTECTOMY Right 1993 reconstruction (TRAM) TOTAL ABDOMINAL HYSTERECTOMY W/ BILATERAL SALPINGOOPHORECTOMY 1998 TUBAL LIGATION 1979 Social History 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 Vaping Use Vaping Use: Never used Substance and Sexual Activity Alcohol use: Yes Alcohol/week: 0.0 - 14.0 standard drinks of alcohol Comment: occ Drug use: No Sexual activity: Not on file Other Topics Concern Not on file Social History Narrative Not on file Social Determinants of Health Financial Resource Strain: Not on file Food Insecurity: Not on file Transportation Needs: Not on file Physical Activity: Not on file Stress: Not on file Social Connections: Not on file Intimate Partner Violence: Not At Risk (10/05/2023) Humiliation, Afraid, Rape, and Kick questionnaire Fear of Current or Ex-Partner: No Emotionally Abused: No Physically Abused: No Sexually Abused: No Housing Stability: Not on file Family History Family History Problem Relation Name Age of Onset Ovarian cancer Mother 66 Heart attack Father Baljeet 76 High Blood Pressure Father Baljeet Macular degeneration Father Baljeet Ovarian cancer Mother's Sister 45 Other ([id number]) Son neuofibromatosis, BRCA1 positive Neurofibromatosis Son High Blood Pressure Son Cancer Son hairy cell leukemia Breast cancer Cousin 42 +brca Bladder Cancer Cousin 19 Allergies Allergies: Isosulfan blue, Methylene blue, and Sulfa antibiotics Medications Current Medications citalopram, 20 mg, Oral, Daily ezetimibe, 10 mg, Oral, Daily insulin lispro, 0-6 Units, SubCUTAneous, TID WC And insulin lispro, 0-6 Units, SubCUTAneous, Nightly losartan, 100 mg, Oral, Daily metoprolol tartrate, 25 mg, Oral, BID PRN Mediations PRN medications: acetaminophen OR acetaminophen, dextrose, dextrose, glucagon (rDNA), glucose, hydrALAZINE, ipratropium-albuterol, naloxone, ondansetron ODT OR ondansetron, oxyCODONE-acetaminophen, polyethylene glycol (PEG) 3350 Home Medications Current Outpatient Medications Medication Instructions albuterol 108 (90 Base) MCG/ACT inhaler albuterol sulfate HFA 90 mcg/actuation aerosol inhaler amLODIPine (NORVASC) 5 mg, Oral, Daily aspirin 81 MG chewable tablet Daily cholecalciferol (VITAMIN D-3) 4,000 Units, Oral, Daily citalopram (CELEXA) 20 mg, Oral, Daily ezetimibe (ZETIA) 10 mg, Oral, Daily Finerenone (Kerendia) 10 MG tablet 1 tablet, Oral, Daily fluticasone (Cutivate) 0.05 % cream Topical, Daily PRN fluticasone (Flonase) 50 MCG/ACT nasal spray 1 spray, Each Nostril, Daily, Shake gently. Before first use, prime pump. After use, clean tip and replace cap. Jentadueto XR 2.5-1000 MG per 24 hr tablet take 2 tablets by mouth once daily lansoprazole (Prevacid) [address] capsule 1 capsule, Daily losartan (Cozaar) 100 MG tablet losartan 100 mg tablet metoprolol tartrate (Lopressor) 25 MG tablet metoprolol tartrate 25 mg tablet rosuvastatin (Crestor) 10 MG tablet Daily Vascepa 1 g capsule TAKE 2 CAPSULES BY MOUTH 2 TIMES DAILY Review of Systems Constitutional: Negative for fatigue, fever, + weight loss HENT: Negative for trouble swallowing and voice change. Eyes: Negative for photophobia and visual disturbance. Respiratory: Negative for chest tightness, wheezing or stridor Cardiovascular: Negative for chest pain, palpitations and leg swelling. Gastrointestinal: Negative for abdominal pain, constipation, diarrhea and vomiting. Endocrine: Negative for cold intolerance, heat intolerance, polydipsia, polyphagia and polyuria. Genitourinary: Negative for dysuria and frequency. Musculoskeletal:Negative for myalgias, neck pain and neck stiffness. Skin: Negative for rash and wound. Allergic/Immunologic: Negative for food allergies and immunocompromised state. Neurological: Negative for tremors, weakness and numbness. Psychiatric/Behavioral: Negative for behavioral problems, confusion and sleep disturbance. Vitals height is 5' 7.25 (1.708 m) and weight is 146 lb (66.2 kg). Her temporal temperature is 36.4 C (97.6 F). Her blood pressure is 140/51 and her pulse is 78. Her respiration is 16 and oxygen saturationis 93%. Body mass index is 22.7 kg/m . 24 Hour intake and output Intake/Output Summary (Last 24 hours) at 10/06/2023 0901 Last data filed at 10/05/2023 0946 Gross per 24 hour Intake 700 ml Output -- Net 700 ml Physical Exam Physical Exam Vitals and nursing note reviewed. Constitutional: General: She is not in acute distress. Appearance: Normal appearance. HENT: Head: Normocephalic and atraumatic. Right Ear: External ear normal. Left Ear: External ear normal. Nose: Nose normal. No congestion or rhinorrhea. Eyes: General: No scleral icterus. Conjunctiva/sclera: Conjunctivae normal. Pupils: Pupils are equal, round, and reactive to light. Cardiovascular: Rate and Rhythm: Normal rate and regular rhythm. Pulmonary: Effort: Pulmonary effort is normal. No respiratory distress. Breath sounds: Normal breath sounds. No wheezing, rhonchi or rales. Comments: Right-sided chest tube in place with Heimlich valve Musculoskeletal: Right lower leg: No edema. Left lower leg: No edema. Skin: General: Skin is warm and dry. Coloration: Skin is not jaundiced. Findings: No bruising, erythema or lesion. Neurological: General: No focal deficit present. Mental Status: She is alert and oriented to person, place, and time. Mental status is at baseline. Psychiatric: Mood and Affect: Mood normal. Behavior: Behavior normal. Thought Content: Thought content normal. Judgment: Judgment normal. Labs CBC Results from last 7 days Lab Units 10/06/23 0359 WBC AUTO 10*3/uL 9.7 HEMOGLOBIN g/dL 10.9* HEMATOCRIT % 32.3* PLATELETS AUTO 10*3/uL 163 BMP: Results from last 7 days Lab Units 10/06/23 0359 10/05/23 1038 SODIUM mmol/L 134* 137 POTASSIUM mmol/L 4.6 4.2 CHLORIDE mmol/L 104 107 CO2 mmol/L 27 24 BUN mg/dL 19* 16 CREATININE mg/dL 0.75 0.71 GLUCOSE mg/dL 125* 150* CALCIUM mg/dL 8.6 8.3* INR Results from last 7 days Lab Units 10/05/23 1038 INR 1.0 Cultures Bronchoscopy cultures Pneumonia PCR panel: Negative Additional cultures and pathology pending Pulmonary function tests (PFT's) Scheduled on 10/29/2023 Sleep History Initially diagnosed with INGA in 2007. Prescribed CPAP with nasal mask but is noncompliant per [facility] Radiology Chest x-ray IMPRESSION: 1. Small to moderate right apical pneumothorax. Pulmonary team aware of this finding at time of interpretation. 2. Patchy right basilar pulmonary infiltrates Chest x-ray 10/06/2023 Pending Assessment Right-sided postprocedural pneumothorax s/p chest tube placement Multiple pulmonary nodules, hypermetabolic s/p ENB/EBUS Hx breast cancer s/p bilateral mastectomies Hx exercise-induced asthma Emphysema on CT with progressive CRUZ INGA, noncompliant History of tobacco abuse Recommendations Right-sided chest tube placed yesterday by IR. Awaiting results from repeat chest x-ray today. If stable we will plan to clamp chest tube. Repeat chest x- ray 4 hours after clamping with possible removal later this afternoon. Plan was discussed with patient at the bedside Follow up on cultures and pathology from bronchoscopy Planning for outpatient pulmonary function test on 10/29/2023 Patient unable to tolerate mask for CPAP therefore has not been wearing Hospital follow-up scheduled with Dr. Arana on 10/13/2023 Advance Directive: Full Code Discharge planning: TBD Case discussed with nurse and patient Questions and concerns addressed.. I have discussed the patient's case and plan of care with my collaborating physician Dr. Tyson [employer] Work Phone: [phone] 314-412602-20-2024 Consult note* SUJATA Mendoza CNP - 10/06/2023 9:01 AM ESTAssociated Order(s): IP CONSULT TO PULMONOLOGY Images from the original note were not included. 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) Diabetes (HCC) History of bilateral mastectomy History of chemotherapy S/P breast reconstruction, bilateral Dyslipidemia BRCA1 positive History of anesthesia problem Spondylosis without myelopathy or radiculopathy, lumbosacral region Low back pain History of COVID-19 Orthostatic hypotension 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 female admitted for postprocedural pneumothorax. Patient with a history of stage I triple negative breast cancer s/p left mastectomy in May 2011, right-sided breast cancer s/p mastectomy June 1994 s/p adjuvant chemo/tamoxifen, CKD and hypermetabolic pulmonary nodules who presented to [facility] yesterday for EBUS/ENB bronchoscopy. Chest x-ray postprocedure showed small to moderate right-sided apical pneumothorax. IR placed right-sided 10 Togolese chest tube with one-wayvalve. Patient follows with Dr. Marcus oncology outpatient. She was diagnosed with exercise-induced asthmaseveral years ago and uses albuterol PRN. History of INGA diagnosed in 2007, she was prescribed a CPAP with nasal mask however is noncompliant. Quit smoking in 1990 with a 06-jewz-rpip history. Patient denies any chest pain, cough, shortness of breath. Does have some tenderness near insertionsite of chest tube. Remains on supplemental oxygen through the night for comfort however is stable on room air this morning. No new overnight concerns. She is hopeful to be able to go home today. Sister present at the bedside Medical History Past Medical History: Past Medical History: Diagnosis Date Arthritis Asthma Breast cancer (HCC) 1993 Right Breast(Mastectomy) Breast cancer (HCC) 2010 Left Breast(Simple Mastectomy, SLND) Chronic kidney disease Diabetes (HCC) GERD (gastroesophageal reflux disease) High blood pressure Occlusion and stenosis of unspecified carotid artery Pure hypercholesterolemia Syncope and collapse 08/29/2022 Past Surgical History: Past Surgical History: Procedure Laterality Date CAROTID ENDARTERECTOMY Right 2008 CATARACT EXTRACTION Bilateral 2006 CHEST TUBE INSERTION Right 10/05/2023 ENDOBRONCHIAL ULTRASOUND EBUS (HISTORICAL) 10/05/2023 MASTECTOMY Left 2010 simple/reconstruction/gingivagrapht MASTECTOMY Right 1993 reconstruction (TRAM) TOTAL ABDOMINAL HYSTERECTOMY W/ BILATERAL SALPINGOOPHORECTOMY 1998 TUBAL LIGATION 1978 Social History 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 Vaping Use Vaping Use: Never used Substance and Sexual Activity Alcohol use: Yes Alcohol/week: 0.0 - 14.0 standard drinks of alcohol Comment: occ Drug use: No Sexual activity: Not on file Other Topics Concern Not on file Social History Narrative Not on file Social Determinants of Health Financial Resource Strain: Not on file Food Insecurity: Not on file Transportation Needs: Not on file Physical Activity: Not on file Stress: Not on file Social Connections: Not on file Intimate Partner Violence: Not At Risk (10/05/2023) Humiliation, Afraid, Rape, and Kick questionnaire Fear of Current or Ex-Partner: No Emotionally Abused: No Physically Abused: No Sexually Abused: No Housing Stability: Not on file Family History Family History Problem Relation Name Age of Onset Ovarian cancer Mother 66 Heart attack Father Baljeet 76 High Blood Pressure Father Baljeet Macular degeneration Father Baljeet Ovarian cancer Mother's Sister 45 Other ([id number]) Son neuofibromatosis, BRCA1 positive Neurofibromatosis Son High Blood Pressure Son Cancer Son hairy cell leukemia Breast cancer Cousin 42 +brca Bladder Cancer Cousin 19 Allergies Allergies: Isosulfan blue, Methylene blue, and Sulfa antibiotics Medications Current Medications citalopram, 20 mg, Oral, Daily ezetimibe, 10 mg, Oral, Daily insulin lispro, 0-6 Units, SubCUTAneous, TID WC And insulin lispro, 0-6 Units, SubCUTAneous, Nightly losartan, 100 mg, Oral, Daily metoprolol tartrate, 25 mg, Oral, BID PRN Mediations PRN medications: acetaminophen OR acetaminophen, dextrose, dextrose, glucagon (rDNA), glucose, hydrALAZINE, ipratropium-albuterol, naloxone, ondansetron ODT OR ondansetron, oxyCODONE-acetaminophen, polyethylene glycol (PEG) 3350 Home Medications Current Outpatient Medications Medication Instructions albuterol 108 (90 Base) MCG/ACT inhaler albuterol sulfate HFA 90 mcg/actuation aerosol inhaler amLODIPine (NORVASC) 5 mg, Oral, Daily aspirin 81 MG chewable tablet Daily cholecalciferol (VITAMIN D-3) 4,000 Units, Oral, Daily citalopram (CELEXA) 20 mg, Oral, Daily ezetimibe (ZETIA) 10 mg, Oral, Daily Finerenone (Kerendia) 10 MG tablet 1 tablet, Oral, Daily fluticasone (Cutivate) 0.05 % cream Topical, Daily PRN fluticasone (Flonase) 50 MCG/ACT nasal spray 1 spray, Each Nostril, Daily, Shake gently. Before first use, prime pump. After use, clean tip and replace cap. Jentadueto XR 2.5-1000 MG per 24 hr tablet take 2 tablets by mouth once daily lansoprazole (Prevacid) [address] capsule 1 capsule, Daily losartan (Cozaar) 100 MG tablet losartan 100 mg tablet metoprolol tartrate (Lopressor) 25 MG tablet metoprolol tartrate 25 mg tablet rosuvastatin (Crestor) 10 MG tablet Daily Vascepa 1 g capsule TAKE 2 CAPSULES BY MOUTH 2 TIMES DAILY Review of Systems Constitutional: Negative for fatigue, fever, + weight loss HENT: Negative for trouble swallowing and voice change. Eyes: Negative for photophobia and visual disturbance. Respiratory: Negative for chest tightness, wheezing or stridor Cardiovascular: Negative for chest pain, palpitations and leg swelling. Gastrointestinal: Negative for abdominal pain, constipation, diarrhea and vomiting. Endocrine: Negative for cold intolerance, heat intolerance, polydipsia, polyphagia and polyuria. Genitourinary: Negative for dysuria and frequency. Musculoskeletal:Negative for myalgias, neck pain and neck stiffness. Skin: Negative for rash and wound. Allergic/Immunologic: Negative for food allergies and immunocompromised state. Neurological: Negative for tremors, weakness and numbness. Psychiatric/Behavioral: Negative for behavioral problems, confusion and sleep disturbance. Vitals height is 5' 7.25 (1.708 m) and weight is 146 lb (66.2 kg). Her temporal temperature is 36.4 C (97.6 F). Her blood pressure is 140/51 and her pulse is 78. Her respiration is 16 and oxygen saturationis 93%. Body mass index is 22.7 kg/m . 24 Hour intake and output Intake/Output Summary (Last 24 hours) at 10/06/2023 0901 Last data filed at 10/05/2023 0946 Gross per 24 hour Intake 700 ml Output -- Net 700 ml Physical Exam Physical Exam Vitals and nursing note reviewed. Constitutional: General: She is not in acute distress. Appearance: Normal appearance. HENT: Head: Normocephalic and atraumatic. Right Ear: External ear normal. Left Ear: External ear normal. Nose: Nose normal. No congestion or rhinorrhea. Eyes: General: No scleral icterus. Conjunctiva/sclera: Conjunctivae normal. Pupils: Pupils are equal, round, and reactive to light. Cardiovascular: Rate and Rhythm: Normal rate and regular rhythm. Pulmonary: Effort: Pulmonary effort is normal. No respiratory distress. Breath sounds: Normal breath sounds. No wheezing, rhonchi or rales. Comments: Right-sided chest tube in place with Heimlich valve Musculoskeletal: Right lower leg: No edema. Left lower leg: No edema. Skin: General: Skin is warm and dry. Coloration: Skin is not jaundiced. Findings: No bruising, erythema or lesion. Neurological: General: No focal deficit present. Mental Status: She is alert and oriented to person, place, and time. Mental status is at baseline. Psychiatric: Mood and Affect: Mood normal. Behavior: Behavior normal. Thought Content: Thought content normal. Judgment: Judgment normal. Labs CBC Results from last 7 days Lab Units 10/06/23 0359 WBC AUTO 10*3/uL 9.7 HEMOGLOBIN g/dL 10.9* HEMATOCRIT % 32.3* PLATELETS AUTO 10*3/uL 163 BMP: Results from last 7 days Lab Units 10/06/23 0359 10/05/23 1038 SODIUM mmol/L 134* 137 POTASSIUM mmol/L 4.6 4.2 CHLORIDE mmol/L 104 107 CO2 mmol/L 27 24 BUN mg/dL 19* 16 CREATININE mg/dL 0.75 0.71 GLUCOSE mg/dL 125* 150* CALCIUM mg/dL 8.6 8.3* INR Results from last 7 days Lab Units 10/05/23 1038 INR 1.0 Cultures Bronchoscopy cultures Pneumonia PCR panel: Negative Additional cultures and pathology pending Pulmonary function tests (PFT's) Scheduled on 10/29/2023 Sleep History Initially diagnosed with INGA in 2007. Prescribed CPAP with nasal mask but is noncompliant per [facility] Chest x-ray IMPRESSION: 1. Small to moderate right apical pneumothorax. Pulmonary team aware of this finding at time of interpretation. 2. Patchy right basilar pulmonary infiltrates Chest x-ray 10/06/2023 Pending Assessment Right-sided postprocedural pneumothorax s/p chest tube placement Multiple pulmonary nodules, hypermetabolic s/p ENB/EBUS Hx breast cancer s/p bilateral mastectomies Hx exercise-induced asthma Emphysema on CT with progressive CRUZ INGA, noncompliant History of tobacco abuse Recommendations Right-sided chest tube placed yesterday by IR. Awaiting results from repeat chest x-ray today. If stable we will plan to clamp chest tube. Repeat chest x- ray 4 hours after clamping with possible removal later this afternoon. Plan was discussed with patient at the bedside Follow up on cultures and pathology from bronchoscopy Planning for outpatient pulmonary function test on 10/29/2023 Patient unable to tolerate mask for CPAP therefore has not been wearing Hospital follow-up scheduled with Dr. Arana on 10/13/2023 Advance Directive: Full Code Discharge planning: TBD Case discussed with nurse and patient Questions and concerns addressed.. I have discussed the patient's case and plan of care with my collaborating physician Dr. Tyson documented in this [facility]02-19-2024 History and physical note* Rosalee Zimmer DO - 10/05/2023 3:21 PM EST Images from the original note were not included. Attending History and Physical Admit Date: 10/05/2023 PCP: CELIA AL DO CHIEF COMPLAINT: SOB Reason for Admission: pneumothorax History Obtained From: patient HISTORY OF PRESENT ILLNESS: Rolando is a 78 y.o. female with past medical history of BL breast cancer s/p mastectomy and chemo, former smoker, asthma, emphysema, HTN, GERD, HLD, anxiety/depression . who presents to [facility] on 10/05/2023 with chief complaint of acute pneumothorax. Patient had outpatient bronchoscopy for multiple pulmonary nodules. Biopsies obtained, imaging showed pneumothorax. Endorses mild chest pain and discomfort but denies SOB. Denies abdominal pain, nausea, vomiting, diarrhea, constipation, fevers, or chills. Initial vitals showed VSS, patient on 3L via NC. Imaging showed pneumothorax small to moderate in size at right apical lung . Patient had chest tube placed by IR. Patient admitted for further management of acute pneumothorax and chest tube s/p bronchoscopy. Past Medical History: Past Medical History: Diagnosis Date Arthritis Asthma Breast cancer (HCC) 1993 Right Breast(Mastectomy) Breast cancer (HCC) 2010 Left Breast(Simple Mastectomy, SLND) Chronic kidney disease Diabetes (HCC) GERD (gastroesophageal reflux disease) High blood pressure Occlusion and stenosis of unspecified carotid artery Pure hypercholesterolemia Syncope and collapse 08/29/2022 Past Surgical History: Past Surgical History: Procedure Laterality Date CAROTID ENDARTERECTOMY Right 2008 CATARACT EXTRACTION Bilateral 2005 ENDOBRONCHIAL ULTRASOUND EBUS (HISTORICAL) 10/05/2023 MASTECTOMY Left 2010 simple/reconstruction/gingivagrapht MASTECTOMY Right 1993 reconstruction (TRAM) TOTAL ABDOMINAL HYSTERECTOMY W/ BILATERAL SALPINGOOPHORECTOMY 1998 TUBAL LIGATION 1978 Social History: 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 Vaping Use Vaping Use: Never used Substance and Sexual Activity Alcohol use: Yes Alcohol/week: 0.0 - 14.0 standard drinks of alcohol Comment: occ Drug use: No Sexual activity: Not on file Other Topics Concern Not on file Social History Narrative Not on file Social Determinants of Health Financial Resource Strain: Not on file Food Insecurity: Not on file Transportation Needs: Not on file Physical Activity: Not on file Stress: Not on file Social Connections: Not on file Intimate Partner Violence: Not At Risk (10/05/2023) Humiliation, Afraid, Rape, and Kick questionnaire Fear of Current or Ex-Partner: No Emotionally Abused: No Physically Abused: No Sexually Abused: No Housing Stability: Not on file Family History: Family History Problem Relation Name Age of Onset Ovarian cancer Mother 66 Heart attack Father Baljeet 76 High Blood Pressure Father Baljeet Macular degeneration Father Baljeet Ovarian cancer Mother's Sister 45 Other ([id number]) Son neuofibromatosis, BRCA1 positive Neurofibromatosis Son High Blood Pressure Son Cancer Son hairy cell leukemia Breast cancer Cousin 42 +brca Bladder Cancer Cousin 19 Medications Prior to Admission: No current facility-administered medications on file prior to encounter. Current Outpatient Medications on File Prior to Encounter Medication Sig Dispense Refill cholecalciferol (Vitamin D-3) 50 MCG (1999 UT) tablet Take 4,000 Units by mouth daily. citalopram (CeleXA) 20 MG tablet Take 20 mg by mouth daily. ezetimibe (Zetia) 10 MG tablet Take 1 tablet (10 mg) by mouth in the morning. 90 tablet 1 Finerenone (Kerendia) 10 MG tablet Take 1 tablet by mouth daily. Jentadueto XR 2.5-1000 MG per 24 hr tablet take 2 tablets by mouth once daily lansoprazole (Prevacid) [address] capsule 1 capsule in the morning. losartan (Cozaar) 100 MG tablet losartan 100 mg tablet metoprolol tartrate (Lopressor) 25 MG tablet metoprolol tartrate 25 mg tablet rosuvastatin (Crestor) 10 MG tablet daily. albuterol 108 (90 Base) MCG/ACT inhaler albuterol sulfate HFA 90 mcg/actuation aerosol inhaler aspirin 81 MG chewable tablet daily. Vascepa 1 g capsule TAKE 2 CAPSULES BY MOUTH 2 TIMES DAILY 360 capsule 3 Allergies: Allergies Allergen Reactions Isosulfan Blue Anaphylaxis Methylene Blue Sulfa Antibiotics Rash REVIEW OF SYSTEMS: ROS as stated in the HPI above Vitals: BP (!) 148/48 Pulse 67 Temp 36.2 C (97.1 F) (Temporal) Resp 16 Ht 5' 7.25 (1.708 m) Wt 146 lb (66.2 kg) SpO2 97% BMI 22.70 kg/m BMI Classification: Normal Weight (BMI 18.5-24.9) Pulse Ox: SpO2 Av % Min: 97 % Max: 97 % Supplemental O2: O2 Flow Rate (L/min): 3 L/min PHYSICAL EXAM: General appearance: No apparent distress, appears stated age and cooperative with exam. Female in NAD Respiratory: decreased breath sounds, no wheezing. chest tube in place, Cardiovascular: Regular rate and rhythm with no murmur Abdomen: Soft, non-tender, non-distended Skin: Skin color, texture, turgor normal. No rashes or lesions. Distal pulses intact in BL LE, no edema in BL LE. Neurologic: grossly non-focal. DATA: CBC: No results for input(s): WBC, RBC, HGB, HCT, MCV, RDW, PLT in the last 72 hours. BMP:No results for input(s): NA, K, CL, CO2, BUN, CREATININE, GLUCOSE, CALCIUM, ANIONGAP in the last 72 hours. LIVER PROFILE:No results for input(s): AST, ALT, BILITOT, ALKPHOS, PROT in the last 72 hours. No lab exists for component: LABALBU PT/INR: No results for input(s): PROTIME, INR in the last 72 hours. CARDIAC ENZYMES: No results for input(s): TROPONINI in the last 72 hours. Procalcitonin: No results found for: PROCAL Urine Culture: No results found for this or any previous visit. COVID-19 PCR: No results for input(s): COVID19 in the last 72 hours. I reviewed: [x] laboratory results [x] radiographic results At the time of today's encounter. Pt was advised of the results. IMPRESSION: Acute pneumothorax s/p bronchoscopy on 10/05/23 Small to moderate right apical pneumothorax Multiple pulmonary nodules, hypermetabolic IR to place Chest tube Pulmonology on consult for chest tube management CXR in the AM PRN pain medications Breathing treatments PRN Supplemental O2, wean as tolerated Hx of BL Breast cancer s/p mastectomy S/p chemo Progressive weight loss Lost 50lbs since July 2022 Asthma Former smoker Emphysema Duonebs PRN Pulmonology on consult DM type 2 SSI Diabetic diet GERD HTN Metoprolol, losartan HLD Zetia Anxiety/depression Celexa Medical Decision Makin10/05/23: Patient accepted from Dr. Arana who performed outpatient bronchoscopy today, pneumothorax reported post procedure, small to moderate apical on the right sided. IR to place chest tube. Patient to be admitted to hospitalist service for further management. Pulmonology notified [facility], placed on consult for chest tube management. Breathing treatments ordered, labs reviewed andstable. PRN pain medication. Home medications reviewed and resumed as indicated. CXR ordered for the AM. CBC and BMP in the AM. -PT/OT eval/increase activity -am labs, replace lytes prn -vitals per routine -home meds as ordered -DVT prophylaxis: [x] Lovenox [] Heparin [x] SCDs [x] Encourage ambulation [] Already on Anticoagulation Anticipated Discharge - Date - 10/07/23 - Location - Home - Pending the following - stable pneumothorax Toxic drug monitoring/narrow therapeutic index drug monitoring : # Drug name : # Route administered : # Method of monitoring : Extended Emergency Contact Information Primary Emergency Contact: Jin Peters Address: [address] [place] [address] Mobile Relation: Spouse Secondary Emergency Contact: Ene Negrete Address: [address] [place] [address] [facility] Mobile Relation: Child Code status: Full Code -see below for additional orders, further recommendations to follow Orders Placed This Encounter Procedures Respiratory culture and Stain Respiratory culture and Stain Respiratory culture and Stain Respiratory culture and Stain Fungal stain Fungal stain Fungal stain Fungal stain Fungal Culture Fungal Culture Fungal Culture Fungal Culture AFB culture AFB culture AFB culture AFB culture Pneumonia PCR Panel Silver Stain FL GUIDANCE OR USE ONLY - NON RESULTABLE XR chest [address] guided chest tube Body Fluid Cell Count w/ Reflex Diff Full Code Inpatient consult to Pulmonology--[facility] [place] PO[place] glucose meter Place in outpatient/hospital ambulatory surgery Please forward a copy of this H&P to the patient's PCP. Thank you. [facility] [id number] History and physical note* Rosalee Zimmer DO - 10/05/2023 3:21 PM EST Images from the original note were not included. Attending History and Physical Admit Date: 10/05/2023 PCP: CELIA AL DO CHIEF COMPLAINT: SOB Reason for Admission: pneumothorax History Obtained From: patient HISTORY OF PRESENT ILLNESS: Rolando is a 78 y.o. female with past medical history of BL breast cancer s/p mastectomy and chemo, former smoker, asthma, emphysema, HTN, GERD, HLD, anxiety/depression . who presents to [facility] on 10/05/2023 with chief complaint of acute pneumothorax. Patient had outpatient bronchoscopy for multiple pulmonary nodules. Biopsies obtained, imaging showed pneumothorax. Endorses mild chest pain and discomfort but denies SOB. Denies abdominal pain, nausea, vomiting, diarrhea, constipation, fevers, or chills. Initial vitals showed VSS, patient on 3L via NC. Imaging showed pneumothorax small to moderate in size at right apical lung . Patient had chest tube placed by IR. Patient admitted for further management of acute pneumothorax and chest tube s/p bronchoscopy. Past Medical History: Past Medical History: Diagnosis Date Arthritis Asthma Breast cancer (HCC) 1993 Right Breast(Mastectomy) Breast cancer (HCC) 2010 Left Breast(Simple Mastectomy, SLND) Chronic kidney disease Diabetes (HCC) GERD (gastroesophageal reflux disease) High blood pressure Occlusion and stenosis of unspecified carotid artery Pure hypercholesterolemia Syncope and collapse 08/29/2022 Past Surgical History: Past Surgical History: Procedure Laterality Date CAROTID ENDARTERECTOMY Right 2009 CATARACT EXTRACTION Bilateral 2005 ENDOBRONCHIAL ULTRASOUND EBUS (HISTORICAL) 10/05/2023 MASTECTOMY Left 2010 simple/reconstruction/gingivagrapht MASTECTOMY Right 1993 reconstruction (TRAM) TOTAL ABDOMINAL HYSTERECTOMY W/ BILATERAL SALPINGOOPHORECTOMY 1998 TUBAL LIGATION 1978 Social History: 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 Vaping Use Vaping Use: Never used Substance and Sexual Activity Alcohol use: Yes Alcohol/week: 0.0 - 14.0 standard drinks of alcohol Comment: occ Drug use: No Sexual activity: Not on file Other Topics Concern Not on file Social History Narrative Not on file Social Determinants of Health Financial Resource Strain: Not on file Food Insecurity: Not on file Transportation Needs: Not on file Physical Activity: Not on file Stress: Not on file Social Connections: Not on file Intimate Partner Violence: Not At Risk (10/05/2023) Humiliation, Afraid, Rape, and Kick questionnaire Fear of Current or Ex-Partner: No Emotionally Abused: No Physically Abused: No Sexually Abused: No Housing Stability: Not on file Family History: Family History Problem Relation Name Age of Onset Ovarian cancer Mother 66 Heart attack Father Baljeet 76 High Blood Pressure Father Baljeet Macular degeneration Father Baljeet Ovarian cancer Mother's Sister 45 Other ([id number]) Son neuofibromatosis, BRCA1 positive Neurofibromatosis Son High Blood Pressure Son Cancer Son hairy cell leukemia Breast cancer Cousin 42 +brca Bladder Cancer Cousin 19 Medications Prior to Admission: No current facility-administered medications on file prior to encounter. Current Outpatient Medications on File Prior to Encounter Medication Sig Dispense Refill cholecalciferol (Vitamin D-3) 50 MCG (2000 UT) tablet Take 4,000 Units by mouth daily. citalopram (CeleXA) 20 MG tablet Take 20 mg by mouth daily. ezetimibe (Zetia) 10 MG tablet Take 1 tablet (10 mg) by mouth in the morning. 90 tablet 1 Finerenone (Kerendia) 10 MG tablet Take 1 tablet by mouth daily. Jentadueto XR 2.5-1000 MG per 24 hr tablet take 2 tablets by mouth once daily lansoprazole (Prevacid) [address] capsule 1 capsule in the morning. losartan (Cozaar) 100 MG tablet losartan 100 mg tablet metoprolol tartrate (Lopressor) 25 MG tablet metoprolol tartrate 25 mg tablet rosuvastatin (Crestor) 10 MG tablet daily. albuterol 108 (90 Base) MCG/ACT inhaler albuterol sulfate HFA 90 mcg/actuation aerosol inhaler aspirin 81 MG chewable tablet daily. Vascepa 1 g capsule TAKE 2 CAPSULES BY MOUTH 2 TIMES DAILY 360 capsule 3 Allergies: Allergies Allergen Reactions Isosulfan Blue Anaphylaxis Methylene Blue Sulfa Antibiotics Rash REVIEW OF SYSTEMS: ROS as stated in the HPI above Vitals: BP (!) 148/48 Pulse 67 Temp 36.2 C (97.1 F) (Temporal) Resp 16 Ht 5' 7.25 (1.708 m) Wt 146 lb (66.2 kg) SpO2 97% BMI 22.70 kg/m BMI Classification: Normal Weight (BMI 18.5-24.9) Pulse Ox: SpO2 Av % Min: 97 % Max: 97 % Supplemental O2: O2 Flow Rate (L/min): 3 L/min PHYSICAL EXAM: General appearance: No apparent distress, appears stated age and cooperative with exam. Female in NAD Respiratory: decreased breath sounds, no wheezing. chest tube in place, Cardiovascular: Regular rate and rhythm with no murmur Abdomen: Soft, non-tender, non-distended Skin: Skin color, texture, turgor normal. No rashes or lesions. Distal pulses intact in BL LE, no edema in BL LE. Neurologic: grossly non-focal. DATA: CBC: No results for input(s): WBC, RBC, HGB, HCT, MCV, RDW, PLT in the last 72 hours. BMP:No results for input(s): NA, K, CL, CO2, BUN, CREATININE, GLUCOSE, CALCIUM, ANIONGAP in the last 72 hours. LIVER PROFILE:No results for input(s): AST, ALT, BILITOT, ALKPHOS, PROT in the last 72 hours. No lab exists for component: LABALBU PT/INR: No results for input(s): PROTIME, INR in the last 72 hours. CARDIAC ENZYMES: No results for input(s): TROPONINI in the last 72 hours. Procalcitonin: No results found for: PROCAL Urine Culture: No results found for this or any previous visit. COVID-19 PCR: No results for input(s): COVID19 in the last 72 hours. I reviewed: [x] laboratory results [x] radiographic results At the time of today's encounter. Pt was advised of the results. IMPRESSION: Acute pneumothorax s/p bronchoscopy on 10/05/23 Small to moderate right apical pneumothorax Multiple pulmonary nodules, hypermetabolic IR to place Chest tube Pulmonology on consult for chest tube management CXR in the AM PRN pain medications Breathing treatments PRN Supplemental O2, wean as tolerated Hx of BL Breast cancer s/p mastectomy S/p chemo Progressive weight loss Lost 50lbs since July 2022 Asthma Former smoker Emphysema Duonebs PRN Pulmonology on consult DM type 2 SSI Diabetic diet GERD HTN Metoprolol, losartan HLD Zetia Anxiety/depression Celexa Medical Decision Makin10/05/23: Patient accepted from Dr. Arana who performed outpatient bronchoscopy today, pneumothorax reported post procedure, small to moderate apical on the right sided. IR to place chest tube. Patient to be admitted to hospitalist service for further management. Pulmonology notified [facility], placed on consult for chest tube management. Breathing treatments ordered, labs reviewed andstable. PRN pain medication. Home medications reviewed and resumed as indicated. CXR ordered for the AM. CBC and BMP in the AM. -PT/OT eval/increase activity -am labs, replace lytes prn -vitals per routine -home meds as ordered -DVT prophylaxis: [x] Lovenox [] Heparin [x] SCDs [x] Encourage ambulation [] Already on Anticoagulation Anticipated Discharge - Date - 10/07/23 - Location - Home - Pending the following - stable pneumothorax Toxic drug monitoring/narrow therapeutic index drug monitoring : # Drug name : # Route administered : # Method of monitoring : Extended Emergency Contact Information Primary Emergency Contact: Jin Peters Address: [address] [place] [address] [facility] Relation: Spouse Secondary Emergency Contact: Ene Negrete Address: [address] [place] [address] [facility] Relation: Child Code status: Full Code -see below for additional orders, further recommendations to follow Orders Placed This Encounter Procedures Respiratory culture and Stain Respiratory culture and Stain Respiratory culture and Stain Respiratory culture and Stain Fungal stain Fungal stain Fungal stain Fungal stain Fungal Culture Fungal Culture Fungal Culture Fungal Culture AFB culture AFB culture AFB culture AFB culture Pneumonia PCR Panel Silver Stain FL GUIDANCE OR USE ONLY - NON RESULTABLE XR chest [address] guided chest tube Body Fluid Cell Count w/ Reflex Diff Full Code Inpatient consult to Pulmonology[place] [place] [facility] PO[place] glucose meter Place in outpatient/hospital ambulatory surgery Please forward a copy of this H&P to the patient's PCP. Thank you. * Stephanie Arana DO - 10/04/2023 7:37 PM EST Chief Complaint: Pulmonary nodules History of Present Illness: 78 y.o. female with history of stage I triple negative breast cancer s/p left mastectomy 05/2011, right-sided breast cancer s/p mastectomy 06/1994 s/p adjuvant chemo/tamoxifen, CKD who presented for ENB/EBUS to evaluate PET avid pulmonary nodules. Past Medical History Past Medical History: Diagnosis Date Arthritis Asthma Breast cancer (HCC) 1993 Right Breast(Mastectomy) Breast cancer (HCC) 2010 Left Breast(Simple Mastectomy, SLND) Chronic kidney disease Diabetes (HCC) GERD (gastroesophageal reflux disease) High blood pressure Occlusion and stenosis of unspecified carotid artery Pure hypercholesterolemia Syncope and collapse 08/29/2022 Past Surgical History Past Surgical History: Procedure Laterality Date CAROTID ENDARTERECTOMY Right 2009 CATARACT EXTRACTION Bilateral 2006 MASTECTOMY Left 2010 simple/reconstruction/gingivagrapht MASTECTOMY Right 1994 reconstruction (TRAM) TOTAL ABDOMINAL HYSTERECTOMY W/ BILATERAL SALPINGOOPHORECTOMY 1998 TUBAL LIGATION 1979 Allergies Allergies Allergen Reactions Isosulfan Blue Anaphylaxis Methylene Blue Sulfa Antibiotics Rash Medications No current facility-administered medications on file prior to encounter. Current Outpatient Medications on File Prior to Encounter Medication Sig Dispense Refill cholecalciferol (Vitamin D-3) 50 MCG (2000 UT) tablet Take 4,000 Units by mouth daily. citalopram (CeleXA) 20 MG tablet Take 20 mg by mouth daily. ezetimibe (Zetia) 10 MG tablet Take 1 tablet (10 mg) by mouth in the morning. 90 tablet 1 Finerenone (Kerendia) 10 MG tablet Take 1 tablet by mouth daily. Jentadueto XR 2.5-1000 MG per 24 hr tablet take 2 tablets by mouth once daily lansoprazole (Prevacid) [address] capsule 1 capsule in the morning. losartan (Cozaar) 100 MG tablet losartan 100 mg tablet metoprolol tartrate (Lopressor) 25 MG tablet metoprolol tartrate 25 mg tablet rosuvastatin (Crestor) 10 MG tablet daily. albuterol 108 (90 Base) MCG/ACT inhaler albuterol sulfate HFA 90 mcg/actuation aerosol inhaler aspirin 81 MG chewable tablet daily. 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 Respiratory: Negative. Cardiovascular: Negative. Physical Exam Vitals: 10/05/23 0722 BP: (!) 169/64 BP Location: Left arm Patient Position: Sitting Pulse: 79 Resp: 18 Temp: 36.3 C (97.3 F) TempSrc: Temporal SpO2: 97% Weight: 146 lb (66.2 kg) Height: 5' 7.25 (1.708 m) Physical Exam Vitals reviewed. Constitutional: General: She is not in acute distress. Appearance: Normal appearance. HENT: Head: Normocephalic and atraumatic. Nose: No congestion. Mouth/Throat: Mouth: Mucous membranes are moist. Eyes: General: No scleral icterus. Extraocular Movements: Extraocular movements intact. Cardiovascular: Rate and Rhythm: Normal rate and regular rhythm. Pulmonary: Effort: Pulmonary effort is normal. No respiratory distress. Breath sounds: Normal breath sounds. No wheezing, rhonchi or rales. Musculoskeletal: General: No swelling. Skin: General: Skin is warm and dry. Neurological: Mental Status: She is alert and oriented to person, place, and time. Psychiatric: Mood and Affect: Mood normal. Assessment and Plan: Hypermetabolic pulmonary nodules -Navigational bronchoscopy with transbronchial biopsies, needle aspiration, brushings and bronchoalveolar lavage of RML and RLL pulmonary nodules. Endobronchial ultrasound with transbronchial needle aspiration of hilar and paratracheal lymph nodes. Procedure explained in detail to patient including risks of bleeding and pneumothorax. Patient is not on any anticoagulation, has no history of coagulopathies or liver disease. All questions answered. Patient agreeable to proceed. documented in this [facility]02-19-2024 Note* Perioperative Nursing Note - Betsey Metcalf RN - 10/05/2023 2:43 PM EST Report to laney to [facility] via cart family at bedside and updated [id number] Note* Perioperative Nursing Note - Betsey Metcalf RN - 10/05/2023 2:43 PM EST Report to laney to [facility] via Mo[employer] family at bedside and updated [facility] CenterNzenpn71-70-2576 Nurse Note* Chavez Scott RN - 10/05/2023 2:22 PM EST S/p chest tube placement, air has been sufficiently removed with one-way valve attached to tube. One-way valve to remain per Dr. Rosario unless specified by treatment team. [facility] [id number] Nurse Note* Chavez Scott RN - 10/05/2023 2:22 PM EST S/p chest tube placement, air has been sufficiently removed with one-way valve attached to tube. One-way valve to remain per Dr. Rosario unless specified by treatment team. * Alice Muniz RN - 10/05/2023 2:00 PM EST Patient arrived from PACU, Dr. Rosario in to speak with the patient regarding chest tube placement, consent obtained. Patient was placed supine on exam table prepped and draped in sterile fashion. Telemetry monitors placed, conscious sedation administered. Patient tolerated procedure well. Transfer to PACU. documented in this [facility]02-19-2024 Nurse Note* Alice Muniz RN - 10/05/2023 2:00 PM EST Patient arrived from PACU, Dr. Rosario in to speak with the patient regarding chest tube placement, consent obtained. Patient was placed supine on exam table prepped and draped in sterile fashion. Telemetry monitors placed, conscious sedation administered. Patient tolerated procedure well. Transfer to PACU. [facility] CenterVpetce04-75-1715 Note* Perioperative Nursing Note - Betsey Metcalf RN - 10/05/2023 1:11 PM EST To ivr for chest tube placement [address]19-2024 Note* Perioperative Nursing Note - Betsey Metcalf RN - 10/05/2023 1:11 PM EST To ivr for chest tube placement [address]19-2024 Note* Perioperative Nursing Note - Betsey Metcalf RN - 10/05/2023 10:[address] pereira came to bedside and updated pt on plan of care will need chest tube for pneumo at bedside and updated [address]19-2024 Note* Perioperative Nursing Note - Betsey Metcalf RN - 10/05/2023 10:[address] pereira came to bedside and updated pt on plan of care will need chest tube for pneumo at bedside and updated [address]19-2024 Note* Care Coordination - Stephanie Arana DO - 10/05/2023 10:18 AM EST Post procedure chest xray with right sided pneumothorax. Patient asymptomatic. Vital signs stable, decreased breath sounds right side. Discussed with IR for chest tube placement with admission to hospital afterwards. Updated patient and family. Inpatient pulmonary team aware and will follow. [address]19-2024 Note* Care Coordination - Stephanie Arana DO - 10/05/2023 10:18 AM EST Post procedure chest xray with right sided pneumothorax. Patient asymptomatic. Vital signs stable, decreased breath sounds right side. Discussed with IR for chest tube placement with admission to hospital afterwards. Updated patient and family. Inpatient pulmonary team aware and will follow. [facility] CenterRlwwkg03-37-1288 Hospital Discharge instructions* Discharge Instructions* Stephanie Arana DO - 10/05/2023 9:37 AM EST You may have a sore throat and cough with blood tinged sputum. If you develop shortness of breath, chest pain, or worsening bleeding, please call the office at [phone] or go to the Emergency Room. * Attachments The following attachments cannot be sent through Care Everywhere. * Bronchoscopy, Diagnostic (Tristanian) * General Anesthesia (Tristanian) documented in this [facility]St[facility]Mkdgew01-45-6517 Note* Brief Op Note - Stephanie Arana DO - 10/05/2023 8:06 AM EST Date: 10/05/2023 Location: [facility] Name: Rolando Peters, : 1945, Diagnosis Pre-op Diagnosis * Other nonspecific abnormal finding of lung field [R91.8] Post-op Diagnosis * Other nonspecific abnormal finding of lung field [R91.8] Procedures ELECTROMAGNETIC NAVIGATIONAL BRONCHOSCOPY, : ENDOBRONCHIAL ULTRASOUND BRONCHOSCOPY WITH X-RAY 98524 - DE BRONCHOSCOPY W/CPTR-ASST IMAGE-GUIDED NAVIGATION ENB/EBUS 51982 - [facility] EBUS DX/TX INTERVENTION PERP LES Surgeons * Stephanie Arana - Primary Procedure Summary Anesthesia: General ASA: III Estimated Blood Loss: Minimal Drains: * None in log * Specimens ID Source Type Tests Collected By Collected At [facility]? Priority Lab ID 1 Lung, Right Middle Lobe Transbronchial Needle Aspirate FINE NEEDLE ASPIRATION Stephanie Arana, DO 10/05/23 0846 Description: RML 2 Lung, Right Middle Lobe Tissue TISSUE EXAM Stephanie Arana, DO 10/05/23 0846 Description: RML 3 Lung, Right Lower Lobe Transbronchial Needle Aspirate FINE NEEDLE ASPIRATION Stephanie Arana, DO 10/05/23 0905 Description: RLL 4 Lung, Right Lower Lobe Tissue TISSUE EXAM Stephanie Arana, DO 10/05/23 0905 Description: RLL 5 Mediastinal Lymph Node Station 7 Transbronchial Needle Aspirate FINE NEEDLE ASPIRATION Stephanie Arana, DO 10/05/23 0908 Description: 7 6 Mediastinal Lymph Node Station 4L Transbronchial Needle Aspirate FINE NEEDLE ASPIRATION Stephanie Arana, DO 10/05/23 0911 Description: 4L 7 Mediastinal Lymph Node Station 4R Transbronchial Needle Aspirate FINE NEEDLE ASPIRATION Stephanie Arana, DO 10/05/23 0919 Description: 4R 8 Mediastinal Lymph Node Station 11R Transbronchial Needle Aspirate FINE NEEDLE ASPIRATION Stephanie Arana, DO 10/05/23 0925 Description: 11R Staff: Margarine Churn Operator: Vianey Lucas RT (R) Pathologist: Shannon Quinteros MD PhD Audio Production Manager: WALDO Blanco Endo Nurse: oNlan Jackson RN; Epifanio Bruce RN Findings: S/p ENB with transbronchial biopsies, TBNA, brushings and BAL of RML and RLL pulmonary nodules. S/p EBUS with TBNA of lymph nodes 4L, 7, 4R and 11R. Please refer to provation note for further details. Complications: None; patient tolerated the procedure well. Specimens Collected: No specimens collected during this procedure. [facility] [id number] Note* Brief Op Note - Stephanie Arana DO - 10/05/2023 8:06 AM EST Date: 10/05/2023 Location: [facility] Name: Rolando Peters, : 1945, Diagnosis Pre-op Diagnosis * Other nonspecific abnormal finding of lung field [R91.8] Post-op Diagnosis * Other nonspecific abnormal finding of lung field [R91.8] Procedures ELECTROMAGNETIC NAVIGATIONAL BRONCHOSCOPY, : ENDOBRONCHIAL ULTRASOUND BRONCHOSCOPY WITH X-RAY 97991 - DE BRONCHOSCOPY W/CPTR-ASST IMAGE-GUIDED NAVIGATION ENB/EBUS 71625 - [facility] EBUS DX/TX INTERVENTION PERPH LES Surgeons * Stephanie Natalia-Chavez - Primary Procedure Summary Anesthesia: General ASA: III Estimated Blood Loss: Minimal Drains: * None in log * Specimens ID Source Type Tests Collected By Collected At [facility]? Priority Lab ID 1 Lung, Right Middle Lobe Transbronchial Needle Aspirate FINE NEEDLE ASPIRATION Stephanie Natalia-Chavez, DO 10/05/23 0846 Description: RML 2 Lung, Right Middle Lobe Tissue TISSUE EXAM Stephanie Natalia-Chavez, DO 10/05/23 0846 Description: RML 3 Lung, Right Lower Lobe Transbronchial Needle Aspirate FINE NEEDLE ASPIRATION Stephanie Natalia-Chavez, DO 10/05/23 0905 Description: RLL 4 Lung, Right Lower Lobe Tissue TISSUE EXAM Stephanie Natalia-Chavez, DO 10/05/23 0905 Description: RLL 5 Mediastinal Lymph Node Station 7 Transbronchial Needle Aspirate FINE NEEDLE ASPIRATION Stephanie Natalia-Chavez, DO 10/05/23 0908 Description: 7 6 Mediastinal Lymph Node Station 4L Transbronchial Needle Aspirate FINE NEEDLE ASPIRATION Stephanie Natalia-Chavez, DO 10/05/23 0911 Description: 4L 7 Mediastinal Lymph Node Station 4R Transbronchial Needle Aspirate FINE NEEDLE ASPIRATION Stephanie Natalia-Chavez, DO 10/05/23 0919 Description: 4R 8 Mediastinal Lymph Node Station 11R Transbronchial Needle Aspirate FINE NEEDLE ASPIRATION Stephanie Natalia-Chavez, DO 10/05/23 0925 Description: 11R Staff: Margarine Churn Operator: Vianey Lucas, RT (R) Pathologist: Shannon Quinteros MD PhD Audio Production Manager: WALDO Blanco Endo Nurse: Nolan Jackson RN; Epifanio Bruce RN Findings: S/p ENB with transbronchial biopsies, TBNA, brushings and BAL of RML and RLL pulmonary nodules. S/p EBUS with TBNA of lymph nodes 4L, 7, 4R and 11R. Please refer to provation note for further details. Complications: None; patient tolerated the procedure well. Specimens Collected: No specimens collected during this procedure. [facility] [id number] Note* Op Note - Stephanie Arana DO - 10/05/2023 7:39 AM EST [facility] Rolando Peters Procedure Date: 10/05/2023 7:39 AM Gender: Female Date of : 1945 Age: 78 Admit Type: Outpatient Note Status: Addendum Attending MD: Stephanie Arana DO, [id number] Procedure: Bronchoscopy Indications: Right middle lobe nodule, Right lower lobe nodule Findings: The endotracheal tube is in good position. The visualized portion of the trachea is of normal caliber. The teagan is sharp. The tracheobronchial tree was examined to at least the first subsegmental level. Bronchial mucosa and anatomy are normal; there are no endobronchial lesions, and no secretions. Electromagnetic navigation bronchoscopy utilizing the [employer] system was performed. A pre-procedure CT scan was used for planning purposes. A virtual bronchoscopic image was generated using the planning software. The target in the right middle lobe (located in the peripheral one-third of the lung) was marked. A solid nodule 1.4 cm in size was found and a pathway was created. After a complete airway exam, the locatable guide/extended working channel was inserted. The navigation phase was then begun to locate the target lesion(s). The locatable guide was removed from the extended working channel. Transbronchial biopsies of a solid nodule were performed in the right middle lobe using a 21 gauge needle and sent for routine cytology. The procedure was guided by fluoroscopy. Transbronchial biopsy technique was selected because the sampling site was not visible endoscopically. The sampling device penetrated the full thickness of the bronchial wall to obtain the biopsy of lung tissue. Six biopsy passes were performed. Transbronchial biopsies of a solid nodule were performed in the right middle lobe using forceps and sent for histopathology examination. The procedure was guided by fluoroscopy. Transbronchial biopsy technique was selected because the sampling site was not visible endoscopically. The sampling device penetrated the full thickness of the bronchial wall to obtain the biopsy of lung tissue. Six biopsy passes were performed. Fluoroscopy guided transbronchial brushings of a solid nodule were obtained in the right middle lobe with a cytology brush and sent for bacterial culture, fungal & AFB analysis and cytology. Two samples were obtained. Transbronchial brushing technique was selected because the sampling site was not visible endoscopically. The sampling device penetrated the full thickness of the bronchial wall to obtain the brushings of lung tissue. The bronchoscope was advanced until wedged at the desired location for bronchoalveolar lavage. BAL was performed in the right middle lobe of the lung and sent for cell count, bacterial culture, aspergillus galactmannan, beta d glucan, fungal & AFB analysis and cytology. 80 mL of fluid were instilled. 25 mL were returned. The return was blood-tinged. Electromagnetic navigation bronchoscopy utilizing the [employer] system was performed. A pre-procedure CT scan was used for planning purposes. A virtual bronchoscopic image was generated using the planning software. The target in the right lower lobe (located in the middle one-third of the lung) was marked. A solid nodule 8 mm in size was found and a pathway was created. After a complete airway exam, the locatable guide/extended working channel was inserted. The navigation phase was then begun to locate the target lesion(s). The locatable guide was removed from the extended working channel. Transbronchial biopsies of a solid nodule were performed in the right lower lobe using a 21 gauge needle and sent for routine cytology. The procedure was guided by fluoroscopy. Transbronchial biopsy technique was selected because the sampling site was not visible endoscopically. The sampling device penetrated the full thickness of the bronchial wall to obtain the biopsy of lung tissue. Six biopsy passes were performed. Transbronchial biopsies of a solid nodule were performed in the right lower lobe using forceps and sent for histopathology examination. The procedure was guided by fluoroscopy. Transbronchial biopsy technique was selected because the sampling site was not visible endoscopically. The sampling device penetrated the full thickness of the bronchial wall to obtain the biopsy of lung tissue. Six biopsy passes were performed. Fluoroscopy guided transbronchial brushings of a solid nodule were obtained in the right lower lobe with a cytology brush and sent for bacterial culture, fungal & AFB analysis and cytology. Two samples were obtained. Transbronchial brushing technique was selected because the sampling site was not visible endoscopically. The sampling device penetrated the full thickness of the bronchial wall to obtain the brushings of lung tissue. The bronchoscope was advanced until wedged at the desired location for bronchoalveolar lavage. BAL was performed in the right lower lobe of the lung and sent for bacterial culture, fungal & AFB analysis and cytology. 80 mL of fluid were instilled. 35 mL were returned. The return was blood-tinged. An endobronchial ultrasound endoscope was utilized in order to assist with fine needle aspiration of the hilar and paratracheal lymph nodes. Transbronchial needle aspirations were performed using a [employer] 25 gauge needle and sent for routine cytology. The procedure was guided by ultrasound. Transbronchial needle aspiration technique was selected because the sampling site was not visible endoscopically. The sampling device penetrated the full thickness of the bronchial wall to obtain the needle aspiration of lymph node tissue. Four to six samples were obtained each from lymph nodes 4L, 7, 4R, and 11R. Impression: - Right middle lobe nodule - Right lower lobe nodule - The airway examination was normal. - Electromagnetic navigation bronchoscopy was performed. - Transbronchial lung biopsies were performed. - Transbronchial lung biopsies were performed. - Transbronchial brushings were obtained. - Bronchoalveolar lavage was performed. - Electromagnetic navigation bronchoscopy was performed. - Transbronchial lung biopsies were performed. - Transbronchial lung biopsies were performed. - Transbronchial brushings were obtained. - Bronchoalveolar lavage was performed. - Endobronchial ultrasound was performed. - A transbronchial needle aspiration was performed. Recommendation: - Discharge patient to home. - Await BAL, biopsy, brushing, culture and cytology results. - Patient has a contact number available for emergencies. The signs and symptoms of potential delayed complications were discussed with the patient. Return to normal activities tomorrow. Written discharge instructions were provided to the patient. - Follow up with bronchoscopist in one week. Referring MD: Maggie Al Medicines: General Anesthesia, See the Anesthesia note for documentation of the administered medications Procedure: Pre-Anesthesia Assessment: - A History and Physical has been performed. The patient's medications, allergies and sensitivities have been reviewed. After I obtained informed consent, the scope was passed under direct vision. Throughout the procedure, the patient's blood pressure, pulse, and oxygen saturations were monitored continuously. The Bronchoscope was introduced through the mouth, via the endotracheal tube (the patient was intubated for the procedure) and advanced to the tracheobronchial tree of both lungs. The procedure was accomplished without difficulty. The patient tolerated the procedure well. Complications: No immediate complications Moderate Sedation: See the Anesthesia note for documentation of the administered medications Comorbidities Refer to note in patient chart for documentation of history and physical. Procedure Code(s): --- Professional --- 96833, Bronchoscopy, rigid or flexible, including fluoroscopic guidance, when performed; with transbronchial needle aspiration biopsy(s), trachea, main stem and/or lobar bronchus(i) 95080, Bronchoscopy, rigid or flexible, including fluoroscopic guidance, when performed; with transbronchial lung biopsy(s), single lobe 54257, Bronchoscopy, rigid or flexible, including fluoroscopic guidance, when performed; with bronchial alveolar lavage 95456, Bronchoscopy, rigid or flexible, including fluoroscopic guidance, when performed; with brushing or protected brushings 82611, Bronchoscopy, rigid or flexible, including fluoroscopic guidance, when performed; with computer-assisted, image-guided navigation (List separately in addition to code for primary procedure[s]) 64750, Bronchoscopy, rigid or flexible, including fluoroscopic guidance, when performed; with transendoscopic endobronchial ultrasound (EBUS) during bronchoscopic diagnostic or therapeutic intervention(s) for peripheral lesion(s) (List separately in addition to code for primary procedure[s]) CPT copyright 2021 [employer]. All rights reserved. The codes documented in this report are preliminary and upon structural steel detailer review may be revised to meet current compliance requirements. Attending Participation: I personally performed the entire procedure. Stephanie Arana DO 10/05/2023 9:52:07 AM This report has been signed electronically. Number of Addenda: 1 Note Initiated On: 10/05/2023 7:39 AM Addendum Number: 1 Addendum Date: 10/05/2023 10:35:02 AM Post procedure chest xray with right pneumothorax. Patient's vital signs stable and asymptomatic. Pending chest tube placement and admission to hospital for monitoring. Patient and family updated. Stephanie Arana DO 10/05/2023 10:36:02 AM This report has been signed electronically. [facility] [id number] Note* Op Note - Stephanie DO Dru - 10/05/2023 7:39 AM [facility] Name[facility] Rolando Peters Procedure Date: 10/05/2023 7:39 AM Gender: Female Date of : 1945 Age: 78 Admit Type: Outpatient Note Status: Addendum Attending MD: Stephanie Arana DO, [id number] Procedure: Bronchoscopy Indications: Right middle lobe nodule, Right lower lobe nodule Findings: The endotracheal tube is in good position. The visualized portion of the trachea is of normal caliber. The teagan is sharp. The tracheobronchial tree was examined to at least the first subsegmental level. Bronchial mucosa and anatomy are normal; there are no endobronchial lesions, and no secretions. Electromagnetic navigation bronchoscopy utilizing the [employer] system was performed. A pre-procedure CT scan was used for planning purposes. A virtual bronchoscopic image was generated using the planning software. The target in the right middle lobe (located in the peripheral one-third of the lung) was marked. A solid nodule 1.4 cm in size was found and a pathway was created. After a complete airway exam, the locatable guide/extended working channel was inserted. The navigation phase was then begun to locate the target lesion(s). The locatable guide was removed from the extended working channel. Transbronchial biopsies of a solid nodule were performed in the right middle lobe using a 21 gauge needle and sent for routine cytology. The procedure was guided by fluoroscopy. Transbronchial biopsy technique was selected because the sampling site was not visible endoscopically. The sampling device penetrated the full thickness of the bronchial wall to obtain the biopsy of lung tissue. Six biopsy passes were performed. Transbronchial biopsies of a solid nodule were performed in the right middle lobe using forceps and sent for histopathology examination. The procedure was guided by fluoroscopy. Transbronchial biopsy technique was selected because the sampling site was not visible endoscopically. The sampling device penetrated the full thickness of the bronchial wall to obtain the biopsy of lung tissue. Six biopsy passes were performed. Fluoroscopy guided transbronchial brushings of a solid nodule were obtained in the right middle lobe with a cytology brush and sent for bacterial culture, fungal & AFB analysis and cytology. Two samples were obtained. Transbronchial brushing technique was selected because the sampling site was not visible endoscopically. The sampling device penetrated the full thickness of the bronchial wall to obtain the brushings of lung tissue. The bronchoscope was advanced until wedged at the desired location for bronchoalveolar lavage. BAL was performed in the right middle lobe of the lung and sent for cell count, bacterial culture, aspergillus galactmannan, beta d glucan, fungal & AFB analysis and cytology. 80 mL of fluid were instilled. 25 mL were returned. The return was blood-tinged. Electromagnetic navigation bronchoscopy utilizing the [employer] system was performed. A pre-procedure CT scan was used for planning purposes. A virtual bronchoscopic image was generated using the planning software. The target in the right lower lobe (located in the middle one-third of the lung) was marked. A solid nodule 8 mm in size was found and a pathway was created. After a complete airway exam, the locatable guide/extended working channel was inserted. The navigation phase was then begun to locate the target lesion(s). The locatable guide was removed from the extended working channel. Transbronchial biopsies of a solid nodule were performed in the right lower lobe using a 21 gauge needle and sent for routine cytology. The procedure was guided by fluoroscopy. Transbronchial biopsy technique was selected because the sampling site was not visible endoscopically. The sampling device penetrated the full thickness of the bronchial wall to obtain the biopsy of lung tissue. Six biopsy passes were performed. Transbronchial biopsies of a solid nodule were performed in the right lower lobe using forceps and sent for histopathology examination. The procedure was guided by fluoroscopy. Transbronchial biopsy technique was selected because the sampling site was not visible endoscopically. The sampling device penetrated the full thickness of the bronchial wall to obtain the biopsy of lung tissue. Six biopsy passes were performed. Fluoroscopy guided transbronchial brushings of a solid nodule were obtained in the right lower lobe with a cytology brush and sent for bacterial culture, fungal & AFB analysis and cytology. Two samples were obtained. Transbronchial brushing technique was selected because the sampling site was not visible endoscopically. The sampling device penetrated the full thickness of the bronchial wall to obtain the brushings of lung tissue. The bronchoscope was advanced until wedged at the desired location for bronchoalveolar lavage. BAL was performed in the right lower lobe of the lung and sent for bacterial culture, fungal & AFB analysis and cytology. 80 mL of fluid were instilled. 35 mL were returned. The return was blood-tinged. An endobronchial ultrasound endoscope was utilized in order to assist with fine needle aspiration of the hilar and paratracheal lymph nodes. Transbronchial needle aspirations were performed using a [employer] Expect 25 gauge needle and sent for routine cytology. The procedure was guided by ultrasound. Transbronchial needle aspiration technique was selected because the sampling site was not visible endoscopically. The sampling device penetrated the full thickness of the bronchial wall to obtain the needle aspiration of lymph node tissue. Four to six samples were obtained each from lymph nodes 4L, 7, 4R, and 11R. Impression: - Right middle lobe nodule - Right lower lobe nodule - The airway examination was normal. - Electromagnetic navigation bronchoscopy was performed. - Transbronchial lung biopsies were performed. - Transbronchial lung biopsies were performed. - Transbronchial brushings were obtained. - Bronchoalveolar lavage was performed. - Electromagnetic navigation bronchoscopy was performed. - Transbronchial lung biopsies were performed. - Transbronchial lung biopsies were performed. - Transbronchial brushings were obtained. - Bronchoalveolar lavage was performed. - Endobronchial ultrasound was performed. - A transbronchial needle aspiration was performed. Recommendation: - Discharge patient to home. - Await BAL, biopsy, brushing, culture and cytology results. - Patient has a contact number available for emergencies. The signs and symptoms of potential delayed complications were discussed with the patient. Return to normal activities tomorrow. Written discharge instructions were provided to the patient. - Follow up with bronchoscopist in one week. Referring MD: Maggie Al Medicines: General Anesthesia, See the Anesthesia note for documentation of the administered medications Procedure: Pre-Anesthesia Assessment: - A History and Physical has been performed. The patient's medications, allergies and sensitivities have been reviewed. After I obtained informed consent, the scope was passed under direct vision. Throughout the procedure, the patient's blood pressure, pulse, and oxygen saturations were monitored continuously. The Bronchoscope was introduced through the mouth, via the endotracheal tube (the patient was intubated for the procedure) and advanced to the tracheobronchial tree of both lungs. The procedure was accomplished without difficulty. The patient tolerated the procedure well. Complications: No immediate complications Moderate Sedation: See the Anesthesia note for documentation of the administered medications Comorbidities Refer to note in patient chart for documentation of history and physical. Procedure Code(s): --- Professional --- 30747, Bronchoscopy, rigid or flexible, including fluoroscopic guidance, when performed; with transbronchial needle aspiration biopsy(s), trachea, main stem and/or lobar bronchus(i) 80059, Bronchoscopy, rigid or flexible, including fluoroscopic guidance, when performed; with transbronchial lung biopsy(s), single lobe 78774, Bronchoscopy, rigid or flexible, including fluoroscopic guidance, when performed; with bronchial alveolar lavage 38374, Bronchoscopy, rigid or flexible, including fluoroscopic guidance, when performed; with brushing or protected brushings 96601, Bronchoscopy, rigid or flexible, including fluoroscopic guidance, when performed; with computer-assisted, image-guided navigation (List separately in addition to code for primary procedure[s]) 51155, Bronchoscopy, rigid or flexible, including fluoroscopic guidance, when performed; with transendoscopic endobronchial ultrasound (EBUS) during bronchoscopic diagnostic or therapeutic intervention(s) for peripheral lesion(s) (List separately in addition to code for primary procedure[s]) CPT copyright 2021 [employer]. All rights reserved. The codes documented in this report are preliminary and upon structural steel detailer review may be revised to meet current compliance requirements. Attending Participation: I personally performed the entire procedure. Stephanie Arana DO 10/05/2023 9:52:07 AM This report has been signed electronically. Number of Addenda: 1 Note Initiated On: 10/05/2023 7:39 AM Addendum Number: 1 Addendum Date: 10/05/2023 10:35:02 AM Post procedure chest xray with right pneumothorax. Patient's vital signs stable and asymptomatic. Pending chest tube placement and admission to hospital for monitoring. Patient and family updated. Stephanie Arana DO 10/05/2023 10:36:02 AM This report has been signed electronically. [id number] History and physical note* Stephanie Arana DO - 10/04/2023 7:37 PM EST Chief Complaint: Pulmonary nodules History of Present Illness: 78 y.o. female with history of stage I triple negative breast cancer s/p left mastectomy 05/2011, right-sided breast cancer s/p mastectomy 06/1994 s/p adjuvant chemo/tamoxifen, CKD who presented for ENB/EBUS to evaluate PET avid pulmonary nodules. Past Medical History Past Medical History: Diagnosis Date Arthritis Asthma Breast cancer (HCC) 1993 Right Breast(Mastectomy) Breast cancer (HCC) 2010 Left Breast(Simple Mastectomy, SLND) Chronic kidney disease Diabetes (HCC) GERD (gastroesophageal reflux disease) High blood pressure Occlusion and stenosis of unspecified carotid artery Pure hypercholesterolemia Syncope and collapse 08/29/2022 Past Surgical History Past Surgical History: Procedure Laterality Date CAROTID ENDARTERECTOMY Right 2008 CATARACT EXTRACTION Bilateral 2006 MASTECTOMY Left 2010 simple/reconstruction/gingivagrapht MASTECTOMY Right 1993 reconstruction (TRAM) TOTAL ABDOMINAL HYSTERECTOMY W/ BILATERAL SALPINGOOPHORECTOMY 1998 TUBAL LIGATION 1979 Allergies Allergies Allergen Reactions Isosulfan Blue Anaphylaxis Methylene Blue Sulfa Antibiotics Rash Medications No current facility-administered medications on file prior to encounter. Current Outpatient Medications on File Prior to Encounter Medication Sig Dispense Refill cholecalciferol (Vitamin D-3) 50 MCG (2000 UT) tablet Take 4,000 Units by mouth daily. citalopram (CeleXA) 20 MG tablet Take 20 mg by mouth daily. ezetimibe (Zetia) 10 MG tablet Take 1 tablet (10 mg) by mouth in the morning. 90 tablet 1 Finerenone (Kerendia) 10 MG tablet Take 1 tablet by mouth daily. Jentadueto XR 2.5-1000 MG per 24 hr tablet take 2 tablets by mouth once daily lansoprazole (Prevacid) [address] capsule 1 capsule in the morning. losartan (Cozaar) 100 MG tablet losartan 100 mg tablet metoprolol tartrate (Lopressor) 25 MG tablet metoprolol tartrate 25 mg tablet rosuvastatin (Crestor) 10 MG tablet daily. albuterol 108 (90 Base) MCG/ACT inhaler albuterol sulfate HFA 90 mcg/actuation aerosol inhaler aspirin 81 MG chewable tablet daily. 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 Respiratory: Negative. Cardiovascular: Negative. Physical Exam Vitals: 10/05/23 0722 BP: (!) 169/64 BP Location: Left arm Patient Position: Sitting Pulse: 79 Resp: 18 Temp: 36.3 C (97.3 F) TempSrc: Temporal SpO2: 97% Weight: 146 lb (66.2 kg) Height: 5' 7.25 (1.708 m) Physical Exam Vitals reviewed. Constitutional: General: She is not in acute distress. Appearance: Normal appearance. HENT: Head: Normocephalic and atraumatic. Nose: No congestion. Mouth/Throat: Mouth: Mucous membranes are moist. Eyes: General: No scleral icterus. Extraocular Movements: Extraocular movements intact. Cardiovascular: Rate and Rhythm: Normal rate and regular rhythm. Pulmonary: Effort: Pulmonary effort is normal. No respiratory distress. Breath sounds: Normal breath sounds. No wheezing, rhonchi or rales. Musculoskeletal: General: No swelling. Skin: General: Skin is warm and dry. Neurological: Mental Status: She is alert and oriented to person, place, and time. Psychiatric: Mood and Affect: Mood normal. Assessment and Plan: Hypermetabolic pulmonary nodules -Navigational bronchoscopy with transbronchial biopsies, needle aspiration, brushings and bronchoalveolar lavage of RML and RLL pulmonary nodules. Endobronchial ultrasound with transbronchial needle aspiration of hilar and paratracheal lymph nodes. Procedure explained in detail to patient including risks of bleeding and pneumothorax. Patient is not on any anticoagulation, has no history of coagulopathies or liver disease. All questions answered. Patient agreeable to proceed. [employer] Work Phone: [phone] 185-988002-15-2024 History of Present illness Narrative* Jerel Borjas Evelio, - 10/01/2023 3:20 PM EST Subjective Patient ID: Rolando Peters is a 78 y.o. female who presents for Sinusitis (Ear pain, drainage, facial pain X yesterday ). Sinusitis Associated symptoms include congestion, coughing (a minor amount in the morning), headaches and sinus pressure. Pertinent negatives include no chills or shortness of breath. Patient presenting with sinus symptoms ongoing for the past 1 or 2 days. She has been having some ear pain as well as drainage and facial pain as well. She will usually get this in the spring and fall. She has a headache above the and underneath the eyes. She has been having some pressure in her molars as well. The left ear is mostly bothering her. COVID testing at home was negative. Patient is no longer on her amlodipine prescription. She is currently prescribed losartan for her blood pressures. She was taken off of the amlodipine by her kidney doctor. She was on 10mg daily. Review of Systems Constitutional: Negative for chills, fatigue and fever. HENT: Positive for congestion, postnasal drip, rhinorrhea and sinus pressure. Negative for sinus pain. Respiratory: Positive for cough (a minor amount in the morning). Negative for shortness of breath. Cardiovascular: Negative for chest pain. Gastrointestinal: Negative for abdominal pain, constipation, diarrhea, nausea and vomiting. Musculoskeletal: Negative for arthralgias and myalgias. Neurological: Positive for headaches. Negative for dizziness and light-headedness. Objective BP (!) 192/74 Pulse 69 Temp 36 C (96.8 F) Ht 1.702 m (5' 7) Wt 66.7 kg (147 lb) SpO2 96% BMI 23.02 kg/m Physical Exam Vitals and nursing note reviewed. Constitutional: General: She is not in acute distress. Appearance: Normal appearance. She is normal weight. She is not ill-appearing or toxic-appearing. HENT: Head: Normocephalic and atraumatic. Cardiovascular: Rate and Rhythm: Normal rate and regular rhythm. Heart sounds: Normal heart sounds. Pulmonary: Effort: Pulmonary effort is normal. Breath sounds: Normal breath sounds. Neurological: Mental Status: She is alert. Assessment/Plan Problem List Items Addressed This Visit ICD-10-CM Primary hypertension I10 Relevant Medications amLODIPine (Norvasc) 5 mg tablet Other Visit Diagnoses Codes Acute maxillary sinusitis, recurrence not specified - Primary J01.00 Relevant Medications amoxicillin-pot clavulanate (Augmentin) 875-125 mg tablet fluticasone (Flonase) 50 mcg/actuation nasal spray History and physical examination as above. Patient with episode of maxillary sinusitis. Discussed [id number]-[id number] medications that she can use. Sent in course of fluticasone nasal spray. Also sent in a course of Augmentin. Patient will take the full prescription. Patient's blood pressure significantly elevated in the office. It sounds like she was taken off of her amlodipine from her [place]. Blood pressure was previously well-controlled as of within thelast month. Patient restarted on 5 mg of amlodipine. Instructed to take half of the 10 mg tablets that she currently has at home. Discussed that if she has any symptoms she needs to go immediately tot emergency department. Discussed to keep track of blood pressures at home and return if they remain elevated. Patient is understanding and in agreement with this plan. documented in this [facility] Work Phone: [phone] 337-536502-15-2024 Instructions* Patient Instructions* Jerel Fraser DO - 10/01/2023 3:20 PM EST With your current symptoms, we can treat this like a sinus infection. If you want to start with jdti-fxu-fghainw medications you could try some allergy medication to help with some of the nasal drainage. You could also take some Tylenol as needed especially if you start getting some headaches or other pains. Please do not take any NSAIDs such as ibuprofen in preparation for your upcoming procedure this next week. I did go ahead and send a prescription for fluticasone nasal spray. This can also be purchased tiop-qgs-aqlroax but I sent in a prescription to have the name of the medication. Please use it as we discussed at the appointment to help with the nasal symptoms presently. If you wanted to use any other cold or cough medication, you could use Coricidin brand as it is usually safe for elevated blood pressures. It sounds like your blood pressure has been elevated since you were taken off of the 10 mg of amlodipine previously. Your blood pressure was significantly elevated today at the appointment. You are currently not having any other symptoms. With the blood pressure being that elevated, if you start having a significant headache, chest pain or shortness of breath or any other concerning symptoms, youwould need to immediately go to the emergency department. I did go ahead and put back into your chart amlodipine for 5 mg. Since you do have the 10 mg tablets left, you can go ahead and cut those in half. Please keep track of your blood pressures. As long as it starts to respond with checking the blood pressures at home then you should be okay. Please give us a call if they are not decreasing. Again if you start having any symptoms as we discussed, you would need to go to the emergency department. Thank you [facility] Work Phone: [phone] Telephone encounter Note* Telephone Encounter - Sravani Vaughan RN - 10/01/2023 11:37 AM EST EBUS/ENB procedure time moved up to 8:[address] Bhatia's request. Ok'd with Maria Alejandra in ENDO and surgery scheduling notified. Patient is agreeable to 8:00 AM procedure with 7:00 AM arrival. Aware Clear liquids only from 12:00 AM -6:00 AM and NPO after 6:00 AM. [facility] [id number] Miscellaneous Notes* Telephone Encounter - Sravani Vaughan RN - 10/01/2023 11:37 AM EST EBUS/ENB procedure time moved up to 8:[address] Bhatia's request. Ok'd with Maria Alejandra in ENDO and surgery scheduling notified. Patient is agreeable to 8:00 AM procedure with 7:00 AM arrival. Aware Clear liquids only from 12:00 AM -6:00 AM and NPO after 6:00 AM. * Telephone Encounter - Macy Leon - 09/30/2023 7:29 AM EST [facility] is active with [facility] and no PA neededfor EBUS/ENB [id number] * Telephone Encounter - Sravani Vaughan RN - 09/29/2023 12:19 PM EST This RN met with patient and in office to discuss EBUS/ENB procedure, scheduling and itinerary. They are agreeable to the following: PFT scheduled 10/29/23 8:00 AM [facility] Last chest CT 08/24/23 Procedure placed on physician's outlook calendar? yes Does patient take blood thinners? No Does patient take ASA?Yes Dr. Bhatia advised ok to take Does patient take NSAIDS? No Does patient take diabetic medications? Yes - oral medication Does patient have Pacemaker, defibrillator, life vest, other implants? No Recent illness or covid exposure? No Chance of ? No Patient aware will need transportation home from hospital? Yes Patient instructed to bring insurance card, photo ID and mask? Yes Surgery Scheduling Patient notified of procedure date, time, prep/NPO status, arrival time, location and entrance, must have a ride, and to bring: drivers license, insurance card, mask, med list. Reviewed prep and itinerary with patient? yes Patient voices understanding? Yes Instructions EBUS/ENB Endobronchial Ultrasound/Electro-Navigational Bronchoscopy Procedure Date: October 05, 2023 Time: 9:00 AM Arrival Time: 7:30 AM Physician: Dr. Arana Location: [facility], Endoscopy Department, [address] [place], [place] [id number] Please arrive at the hospital registration desk 1.5 hours prior to scheduled start of procedure. Make sure you have a known responsible adult to transport you home from the hospital as you will not be permitted to drive. Your procedure will be cancelled if you do not have someone to take you home. You can only use a taxi/bus/Uber/medical transport engineer if you have a known responsible adult to go with you. Do not drink alcohol before or after your procedure. No smoking of any kind and no chewing tobacco six hours prior to your procedure. If you experience any fever/sick symptoms prior to procedure, please call the nurse. Bring your insurance card and photo ID with you. 8 hours prior to scheduled procedure (1:00 AM) is the cut off for solid foods or thick liquids. Youmay have clear liquids (black coffee or tea without creamer, water, soda, broth and any juices you can see through without pulp until 2 hours (7:00 AM) prior to your scheduled start. Any blood thinning medications like Coumadin, Warfarin, Jantoven, Effient, Eliquis, Xarelto, Pradaxa, Pletal, Plavix, Bilinta, Heparin, Lovenox, Fragmin and Aspirin may need to be held prior to the procedure. Contactthe nurse if you take any of these medications. Please refrain from taking any non-steroidal anti-inflammatory medications (i.e. Advil, Aleve, Ibuprofen, Motrin, Naprosyn, Naproxen, Voltaren, Diclofenac, Celebrex, Mobic, Meloxicam) for 5 days prior to procedure. Tylenol (acetaminophen) is safe to use prior to procedure. If you are diabetic, please contact your physician that manages your medications and/or insulin for any adjustments that may be needed while you are on clear liquids then fasting for the majority of the day until after your procedure. Other medications can be taken as usual upto 2 hours (7:00 AM) prior as long as you are able to tolerate them on an empty stomach. Nothing bymouth after 7:00 AM. From registration you will go to the endoscopy unit, the staff there will get you checked in and start an intravenous catheter (IV). Our Anesthesia Team will ask you some health history questions prior and will be there to monitor you for the duration of your procedure. Dr. Arana will be available to speak with you prior to your procedure in case you have any questions. The procedure itself usually lasts about 2 hours and you will be asleep the entire time. After the procedure you will be taken to the recovery area for monitoring. The procedure is planned as outpatient, and you will be discharged the same day. Estimated time at the hospital ranges from 4-5 hours the day of the pr ocedure. The physician will use a small, flexible scope to go through your mouth and into the lung to samplethe area(s) that were discussed with you. The scope has a channel that tools are inserted in to biopsy, collect specimens and/or wash the particular area. The physician will discuss any initial findings post procedure at the hospital with you. Final results typically come back within a week and a follow up will be scheduled based on the physician's recommendation. You are scheduled for a follow up telephone appointment October 13, 2023. Dr. Carlos Wren will call around 9:00 AM to discussresults with you. Things to look for post procedure: Fever greater than 101F Coughing up/spitting up bright red blood greater than a teaspoon Increased Shortness of breath/distress and/ or sudden onset of chest pain (call 911 and head to [facility] emergency department) You will be sent home with discharge instructions. You can eat and drink as tolerated post procedure. You may experience some fatigue, irritation of the throat, increased coughing, and/or pink-blood tinged mucus after the procedure. This is normal and be expected to last about 24-48 hours. Over thecounter medications such as lozenges, cough drops, chloraseptic sprays can help these symptoms. If you have any questions, please call: [phone] RN Clinical Coordinator [facility] Pulmonary Medicine [address] [place] [address], [address] [place] [address] option 4 documented in this encounterSSt. John of God [id number] Telephone encounter Note* Telephone Encounter - Macy Leon - 09/30/2023 7:29 AM EST Pt is active with [facility] and no PA neededfor EBUS/ENB [id number] [facility] [id number] Miscellaneous Notes* Telephone Encounter - Macy Leon - 09/30/2023 7:29 AM EST Pt is active with [facility] and no PA neededfor EBUS/ENB [id number] * Telephone Encounter - Sravani Vaughan RN - 09/29/2023 12:19 PM EST This RN met with patient and in office to discuss EBUS/ENB procedure, scheduling and itinerary. They are agreeable to the following: PFT scheduled 10/29/23 8:00 AM [facility] Last chest CT 08/24/23 Procedure placed on physician's outlook calendar? yes Does patient take blood thinners? No Does patient take ASA?Yes Dr. Bhatia advised ok to take Does patient take NSAIDS? No Does patient take diabetic medications? Yes - oral medication Does patient have Pacemaker, defibrillator, life vest, other implants? No Recent illness or covid exposure? No Chance of ? No Patient aware will need transportation home from hospital? Yes Patient instructed to bring insurance card, photo ID and mask? Yes Surgery Scheduling Patient notified of procedure date, time, prep/NPO status, arrival time, location and entrance, must have a ride, and to bring: drivers license, insurance card, mask, med list. Reviewed prep and itinerary with patient? yes Patient voices understanding? Yes Instructions EBUS/ENB Endobronchial Ultrasound/Electro-Navigational Bronchoscopy Procedure Date: October 05, 2023 Time: 9:00 AM Arrival Time: 7:30 AM Physician: Dr. Arana Location: [facility], Endoscopy Department, [address] [place], [place] [id number] Please arrive at the hospital registration desk 1.5 hours prior to scheduled start of procedure. Make sure you have a known responsible adult to transport you home from the hospital as you will not be permitted to drive. Your procedure will be cancelled if you do not have someone to take you home. You can only use a taxi/bus/Uber/medical transport engineer if you have a known responsible adult to go with you. Do not drink alcohol before or after your procedure. No smoking of any kind and no chewing tobacco six hours prior to your procedure. If you experience any fever/sick symptoms prior to procedure, please call the nurse. Bring your insurance card and photo ID with you. 8 hours prior to scheduled procedure (1:00 AM) is the cut off for solid foods or thick liquids. Youmay have clear liquids (black coffee or tea without creamer, water, soda, broth and any juices you can see through without pulp until 2 hours (7:00 AM) prior to your scheduled start. Any blood thinning medications like Coumadin, Warfarin, Jantoven, Effient, Eliquis, Xarelto, Pradaxa, Pletal, Plavix, Bilinta, Heparin, Lovenox, Fragmin and Aspirin may need to be held prior to the procedure. Contactthe nurse if you take any of these medications. Please refrain from taking any non-steroidal anti-inflammatory medications (i.e. Advil, Aleve, Ibuprofen, Motrin, Naprosyn, Naproxen, Voltaren, Diclofenac, Celebrex, Mobic, Meloxicam) for 5 days prior to procedure. Tylenol (acetaminophen) is safe to use prior to procedure. If you are diabetic, please contact your physician that manages your medications and/or insulin for any adjustments that may be needed while you are on clear liquids then fasting for the majority of the day until after your procedure. Other medications can be taken as usual upto 2 hours (7:00 AM) prior as long as you are able to tolerate them on an empty stomach. Nothing bymouth after 7:00 AM. From registration you will go to the endoscopy unit, the staff there will get you checked in and start an intravenous catheter (IV). Our Anesthesia Team will ask you some health history questions prior and will be there to monitor you for the duration of your procedure. Dr. Arana will be available to speak with you prior to your procedure in case you have any questions. The procedure itself usually lasts about 2 hours and you will be asleep the entire time. After the procedure you will be taken to the recovery area for monitoring. The procedure is planned as outpatient, and you will be discharged the same day. Estimated time at the hospital ranges from 4-5 hours the day of the pr ocedure. The physician will use a small, flexible scope to go through your mouth and into the lung to samplethe area(s) that were discussed with you. The scope has a channel that tools are inserted in to biopsy, collect specimens and/or wash the particular area. The physician will discuss any initial findings post procedure at the hospital with you. Final results typically come back within a week and a follow up will be scheduled based on the physician's recommendation. You are scheduled for a follow up telephone appointment October 13, 2023. Dr. Carlos Wren will call around 9:00 AM to discussresults with you. Things to look for post procedure: Fever greater than 101F Coughing up/spitting up bright red blood greater than a teaspoon Increased Shortness of breath/distress and/ or sudden onset of chest pain (call 911 and head to [facility] emergency department) You will be sent home with discharge instructions. You can eat and drink as tolerated post procedure. You may experience some fatigue, irritation of the throat, increased coughing, and/or pink-blood tinged mucus after the procedure. This is normal and be expected to last about 24-48 hours. Over thecounter medications such as lozenges, cough drops, chloraseptic sprays can help these symptoms. If you have any questions, please call: [phone] RN Clinical Coordinator [facility] Pulmonary Medicine [address] [place] [address], [address] [place] [id number] option 4 documented in this [facility]02-13-2024 Miscellaneous Notes* Telephone Encounter - Melissa Conde - 09/29/2023 3:04 PM EST Patient called to keep Dr. Huggins posted on the discussion that they had regarding laminectomy surgery. Since the discussion she has developed pulmonary issues and needs to hold off having surgery.She stated that as things progress she will keep him posted. Danyelle documented in this encounterSum[facility]02-13-[facility]24 Telephone encounter Note * Telephone Encounter - Sravani Vaughan RN - 09/29/2023 12:19 PM EST This RN met with patient and in office to discuss EBUS/ENB procedure, scheduling and itinerary. They are agreeable to the following: PFT scheduled 10/29/23 8:00 AM [facility] Last chest CT 08/24/23 Procedure placed on physician's outlook calendar? yes Does patient take blood thinners? No Does patient take ASA?Yes Dr. Bhatia advised ok to take Does patient take NSAIDS? No Does patient take diabetic medications? Yes - oral medication Does patient have Pacemaker, defibrillator, life vest, other implants? No Recent illness or covid exposure? No Chance of ? No Patient aware will need transportation home from hospital? Yes Patient instructed to bring insurance card, photo ID and mask? Yes Surgery Scheduling Patient notified of procedure date, time, prep/NPO status, arrival time, location and entrance, must have a ride, and to bring: drivers license, insurance card, mask, med list. Reviewed prep and itinerary with patient? yes Patient voices understanding? Yes Instructions EBUS/ENB Endobronchial Ultrasound/Electro-Navigational Bronchoscopy Procedure Date: October 05, 2023 Time: 9:00 AM Arrival Time: 7:30 AM Physician: Dr. Arana Location: [facility], Endoscopy Department, [address] [place] [address] Please arrive at the hospital registration desk 1.5 hours prior to scheduled start of procedure. Make sure you have a known responsible adult to transport you home from the hospital as you will not be permitted to drive. Your procedure will be cancelled if you do not have someone to take you home. You can only use a taxi/bus/Uber/medical transport engineer if you have a known responsible adult to go with you. Do not drink alcohol before or after your procedure. No smoking of any kind and no chewing tobacco six hours prior to your procedure. If you experience any fever/sick symptoms prior to procedure, please call the nurse. Bring your insurance card and photo ID with you. 8 hours prior to scheduled procedure (1:00 AM) is the cut off for solid foods or thick liquids. Youmay have clear liquids (black coffee or tea without creamer, water, soda, broth and any juices you can see through without pulp until 2 hours (7:00 AM) prior to your scheduled start. Any blood thinning medications like Coumadin, Warfarin, Jantoven, Effient, Eliquis, Xarelto, Pradaxa, Pletal, Plavix, Bilinta, Heparin, Lovenox, Fragmin and Aspirin may need to be held prior to the procedure. Contactthe nurse if you take any of these medications. Please refrain from taking any non-steroidal anti-inflammatory medications (i.e. Advil, Aleve, Ibuprofen, Motrin, Naprosyn, Naproxen, Voltaren, Diclofenac, Celebrex, Mobic, Meloxicam) for 5 days prior to procedure. Tylenol (acetaminophen) is safe to use prior to procedure. If you are diabetic, please contact your physician that manages your medications and/or insulin for any adjustments that may be needed while you are on clear liquids then fasting for the majority of the day until after your procedure. Other medications can be taken as usual upto 2 hours (7:00 AM) prior as long as you are able to tolerate them on an empty stomach. Nothing bymouth after 7:00 AM. From registration you will go to the endoscopy unit, the staff there will get you checked in and start an intravenous catheter (IV). Our Anesthesia Team will ask you some health history questions prior and will be there to monitor you for the duration of your procedure. Dr. Arana will be available to speak with you prior to your procedure in case you have any questions. The procedure itself usually lasts about 2 hours and you will be asleep the entire time. After the procedure you will be taken to the recovery area for monitoring. The procedure is planned as outpatient, and you will be discharged the same day. Estimated time at the hospital ranges from 4-5 hours the day of the du. The physician will use a small, flexible scope to go through your mouth and into the lung to samplethe area(s) that were discussed with you. The scope has a channel that tools are inserted in to biopsy, collect specimens and/or wash the particular area. The physician will discuss any initial findings post procedure at the hospital with you. Final results typically come back within a week and a follow up will be scheduled based on the physician's recommendation. You are scheduled for a follow up telephone appointment October 13, 2023. Dr. Carlos Wren will call around 9:00 AM to discussresults with you. Things to look for post procedure: Fever greater than 101F Coughing up/spitting up bright red blood greater than a teaspoon Increased Shortness of breath/distress and/ or sudden onset of chest pain (call 911 and head to [facility] emergency department) You will be sent home with discharge instructions. You can eat and drink as tolerated post procedure. You may experience some fatigue, irritation of the throat, increased coughing, and/or pink-blood tinged mucus after the procedure. This is normal and be expected to last about 24-48 hours. Over thecounter medications such as lozenges, cough drops, chloraseptic sprays can help these symptoms. If you have any questions, please call: [phone] RN Clinical Coordinator [facility] Pulmonary Medicine [address] [place] [address], [address] [place] [phone] option 4 [facility] [id number] Miscellaneous Notes* Telephone Encounter - Sravani Vaughan RN - 09/29/2023 12:19 PM EST This RN met with patient and in office to discuss EBUS/ENB procedure, scheduling and itinerary. They are agreeable to the following: PFT scheduled 10/29/23 8:00 AM [facility] Last chest CT 08/24/23 Procedure placed on physician's outlook calendar? yes Does patient take blood thinners? No Does patient take ASA?Yes Dr. Bhatia advised ok to take Does patient take NSAIDS? No Does patient take diabetic medications? Yes - oral medication Does patient have Pacemaker, defibrillator, life vest, other implants? No Recent illness or covid exposure? No Chance of ? No Patient aware will need transportation home from hospital? Yes Patient instructed to bring insurance card, photo ID and mask? Yes Surgery Scheduling Patient notified of procedure date, time, prep/NPO status, arrival time, location and entrance, must have a ride, and to bring: drivers license, insurance card, mask, med list. Reviewed prep and itinerary with patient? yes Patient voices understanding? Yes Instructions EBUS/ENB Endobronchial Ultrasound/Electro-Navigational Bronchoscopy Procedure Date: October 05, 2023 Time: 9:00 AM Arrival Time: 7:30 AM Physician: Dr. Arana Location: [facility], Endoscopy Department, [address] [place], [place] [id number] Please arrive at the hospital registration desk 1.5 hours prior to scheduled start of procedure. Make sure you have a known responsible adult to transport you home from the hospital as you will not be permitted to drive. Your procedure will be cancelled if you do not have someone to take you home. You can only use a taxi/bus/Uber/medical transport engineer if you have a known responsible adult to go with you. Do not drink alcohol before or after your procedure. No smoking of any kind and no chewing tobacco six hours prior to your procedure. If you experience any fever/sick symptoms prior to procedure, please call the nurse. Bring your insurance card and photo ID with you. 8 hours prior to scheduled procedure (1:00 AM) is the cut off for solid foods or thick liquids. Youmay have clear liquids (black coffee or tea without creamer, water, soda, broth and any juices you can see through without pulp until 2 hours (7:00 AM) prior to your scheduled start. Any blood thinning medications like Coumadin, Warfarin, Jantoven, Effient, Eliquis, Xarelto, Pradaxa, Pletal, Plavix, Bilinta, Heparin, Lovenox, Fragmin and Aspirin may need to be held prior to the procedure. Contactthe nurse if you take any of these medications. Please refrain from taking any non-steroidal anti-inflammatory medications (i.e. Advil, Aleve, Ibuprofen, Motrin, Naprosyn, Naproxen, Voltaren, Diclofenac, Celebrex, Mobic, Meloxicam) for 5 days prior to procedure. Tylenol (acetaminophen) is safe to use prior to procedure. If you are diabetic, please contact your physician that manages your medications and/or insulin for any adjustments that may be needed while you are on clear liquids then fasting for the majority of the day until after your procedure. Other medications can be taken as usual upto 2 hours (7:00 AM) prior as long as you are able to tolerate them on an empty stomach. Nothing bymouth after 7:00 AM. From registration you will go to the endoscopy unit, the staff there will get you checked in and start an intravenous catheter (IV). Our Anesthesia Team will ask you some health history questions prior and will be there to monitor you for the duration of your procedure. Dr. Arana will be available to speak with you prior to your procedure in case you have any questions. The procedure itself usually lasts about 2 hours and you will be asleep the entire time. After the procedure you will be taken to the recovery area for monitoring. The procedure is planned as outpatient, and you will be discharged the same day. Estimated time at the hospital ranges from 4-5 hours the day of the pr ocedure. The physician will use a small, flexible scope to go through your mouth and into the lung to samplethe area(s) that were discussed with you. The scope has a channel that tools are inserted in to biopsy, collect specimens and/or wash the particular area. The physician will discuss any initial findings post procedure at the hospital with you. Final results typically come back within a week and a follow up will be scheduled based on the physician's recommendation. You are scheduled for a follow up telephone appointment October 13, 2023. Dr. Carlos Wren will call around 9:00 AM to discussresults with you. Things to look for post procedure: Fever greater than 101F Coughing up/spitting up bright red blood greater than a teaspoon Increased Shortness of breath/distress and/ or sudden onset of chest pain (call 911 and head to [facility] emergency department) You will be sent home with discharge instructions. You can eat and drink as tolerated post procedure. You may experience some fatigue, irritation of the throat, increased coughing, and/or pink-blood tinged mucus after the procedure. This is normal and be expected to last about 24-48 hours. Over thecounter medications such as lozenges, cough drops, chloraseptic sprays can help these symptoms. If you have any questions, please call: [phone] RN Clinical Coordinator [facility] Pulmonary Medicine [address] [place] [address], [address] [place] [address] option 4 documented in this [facility]02-13-2024 History of Present illness Narrative* Stephanie Arana DO - 09/29/2023 10:45 AM EST [facility] [address] [place] [id number] Pulmonary Patient Visit - New 09/29/2023 Referring Physician: CELIA AL DO Reason for Referral: Lung Nodules History of Present Illness Rolando Peters is a 78 y.o. female with history of stage I triple negative breast cancer s/p left mastectomy 05/2011, right-sided breast cancer s/p mastectomy 06/1994 s/p adjuvant chemo/tamoxifen, CKD who presented for evaluation of multiple PET avid pulmonary nodules. Patient reported she follows with oncology Dr. Marcus. Stated that she was referred to Dr. Marcus as she has had progressive weightloss, about 50 pounds since 07/2022. Admitted to a chronic mostly nonproductive cough and postnasaldrip. Reported progressive CRUZ with stairs, denied any shortness of breath at rest. Stated she was diagnosed with exercise-induced asthma several years ago, has an albuterol inhaler which she rarely requires. Denied any hemoptysis, chest pain, night sweats. Initially diagnosed with INGA in 2007, completed PSG and prescribed CPAP with nasal mask, but has not been compliant. 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 Family history of malignancy: Father with lung cancer, mother with ovarian cancer Age appropriate cancer screening Mammography: S/p B/L mastectomies PAP: S/p hysterectomy due to heavy menses Colonoscopy: Previously normal PastMedical History Past Medical History: Diagnosis Date Arthritis Asthma Breast cancer (HCC) 1993 Right Breast(Mastectomy) Breast cancer (HCC) 2010 Left Breast(Simple Mastectomy, SLND) Chronic kidney disease Diabetes (HCC) GERD (gastroesophageal reflux disease) High blood pressure Occlusion and stenosis of unspecified carotid artery Pure hypercholesterolemia Syncope and collapse 08/29/2022 Past Surgical History Past Surgical History: Procedure Laterality Date CAROTID ENDARTERECTOMY Right 2009 CATARACT EXTRACTION 2006 MASTECTOMY Left 2010 simple/reconstruction/gingivagrapht MASTECTOMY Right 1993 reconstruction (TRAM) TOTAL ABDOMINAL HYSTERECTOMY W/ BILATERAL SALPINGOOPHORECTOMY 1998 TUBAL LIGATION 1979 Allergies Allergies Allergen Reactions Isosulfan Blue Anaphylaxis Methylene Blue Sulfa Antibiotics Rash Medications Medication Documentation Review Audit Reviewed by Stephanie Arana DO (Physician) on 09/29/23 at 1156 Medication Order Taking? Sig Documenting Provider Last Dose Status albuterol 108 (90 Base) MCG/ACT inhaler [id number] Yes albuterol sulfate HFA 90 mcg/actuation aerosolinhaler Historical ProviderMD Taking Active aspirin 81 MG chewable tablet [id number] Yes daily. Historical Provider, Taking Active cholecalciferol (Vitamin D-3) 50 MCG (1999 UT) tablet [id number] Yes Take 4,000 Units by mouth daily.Historical Provider, Taking Active citalopram (CeleXA) 20 MG tablet [id number] Yes Take 20 mg by mouth daily. Historical Provider, Taking Active ezetimibe (Zetia) 10 MG tablet [id number] Yes Take 1 tablet (10 mg) by mouth in the morning. Marcia Correa APRN - FRANSIS[place] Taking Active Finerenone (Kerendia) 10 MG tablet [id number] Yes Take 1 tablet by mouth daily. Historical ProviderMD Taking Active Jentadueto XR 2.5-1000 MG per 24 hr tablet [id number] Yes take 2 tablets by mouth once daily Historical Provider, Taking Active lansoprazole (Prevacid) [address] capsule [id number] Yes 1 capsule in the morning. Historical ProviderMD Taking Active losartan (Cozaar) 100 MG tablet [id number] Yes losartan 100 mg tablet Historical ProviderMD Taking Active metoprolol tartrate (Lopressor) 25 MG tablet [id number] Yes metoprolol tartrate 25 mg tablet Historical ProviderMD Taking Active rosuvastatin (Crestor) 10 MG tablet [id number] Yes daily. 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 Substance Use Topics Alcohol use: Yes Alcohol/week: 0.0 - 14.0 standard drinks of alcohol Comment: occ FamilyHistory Family History Problem Relation Name Age of Onset Ovarian cancer Mother 66 Heart attack Father Baljeet 76 High Blood Pressure Father Baljeet Macular degeneration Father Baljeet Ovarian cancer Mother's Sister 45 Other ([id number]) Son neuofibromatosis, BRCA1 positive Neurofibromatosis Son High Blood Pressure Son Cancer Son hairy cell leukemia Breast cancer Cousin 42 +brca Bladder Cancer Cousin 19 Review of Systems Review of Systems Constitutional: Positive for unexpected weight change. Negative for chills and fever. HENT: Positive for postnasal drip. Respiratory: Positive for cough and shortness of breath. Negative for chest tightness and wheezing. Cardiovascular: Negative. Allergic/Immunologic: Negative. Physical Exam Vitals: 09/29/23 1050 BP: (!) 146/78 BP Location: Left arm Patient Position: Sitting BP Cuff Size: Large adult Pulse: 97 Resp: 18 Temp: 36.1 C (96.9 F) SpO2: 96% Weight: 145 lb (65.8 kg) Height: 5' 7 (1.702 m) Physical Exam Vitals reviewed. Constitutional: General: She is not in acute distress. Appearance: Normal appearance. HENT: Head: Normocephalic and atraumatic. Nose: No congestion. Mouth/Throat: Mouth: Mucous membranes are moist. Eyes: General: No scleral icterus. Extraocular Movements: Extraocular movements intact. Cardiovascular: Rate and Rhythm: Normal rate and regular rhythm. Pulmonary: Effort: Pulmonary effort is normal. No respiratory distress. Breath sounds: Normal breath sounds. No wheezing, rhonchi or rales. Musculoskeletal: General: No swelling or tenderness. Skin: General: Skin is warm and dry. Neurological: Mental Status: She is alert and oriented to person, place, and time. Psychiatric: Mood and Affect: Mood normal. Labs: Available studies were reviewed Radiology: Personally reviewed and interpreted Chest CT 08/24/2023: Interval development of scattered focal consolidations in the lungs, particularly in the apical left lung lobes as discussed. Recommended short-term follow-up imaging to document resolution. Interval development of new lateral right middle lung lobe nodule with interval enlargement of other previously noted nodules as discussed. Further clinical attention and workup is warranted. Moderate pulmonary emphysema. Coronary and aortic atherosclerosis. Other chronic findings as discussed. PET/CT 09/17/23: 1 cm irregular nodular density within the lateral aspect of the right upper lobe onthe low-dose CT images demonstrates intense FDG accumulation, consistent with malignancy. A 7 mm nodular density within the anteromedial right lower lobe also demonstrates abnormal FDG accumulation, suspicious for malignancy. A streaky density within the left lower lobe on the low-dose CT images demonstrates mild FDG accumulation, less than typically expected for malignancy. A small, somewhat streaky nodular density within the medial aspect of the right lower lobe also demonstrates mild FDG uptake. There is a linear density at the posterior aspect of the left lung apex which demonstrate mild to moderate FDG accumulation which is nonspecific, however the linear configuration of this area is more suggestive of an inflammatory etiology. CT follow-up of these findings is recommended. No evidence of regional edmond or distant metastatic disease. PFT's: Assessment/plan: Hypermetabolic pulmonary nodules Hx breast ca s/p B/L mastectomies CRUZ Post nasal drip INGA Former smoker -Chest imaging reviewed with patient and spouse, discussed multiple new or enlarging pulmonary nodules. Most avid nodules are SUV 7.2 right middle lobe and SUV 4.9 right lower lobe. Left upper lobe streaky density has moderate uptake SUV 3.2. No avid lymphadenopathy. Discussed possible etiologies and options for biopsy. Recommended ENB/EBUS for tissue diagnosis and cultures. Procedure explained in detail including risks of bleeding, pneumothorax, anesthesia, and nondiagnostic procedure. Patientdoes not take anticoagulation, has no history of coagulopathies or liver disease. Recent CBC reviewed. All questions answered. Patient agreeable to proceed. -Noted with emphysema on CT and patient has had progressive CRUZ. PFTs ordered. Continue with albuterol as needed. -Patient reported she is noncompliant with her CPAP as she is unable to tolerate anything around her nose. Follow up: After bronchoscopy to review results Please seek immediate medical attention for any worsening or worrying new symptoms. Patient education, benefits, risks, and precautions provided. Management plan was discussed in detail and in agreement. All questions or concerns answered to satisfaction and understood. Stephanie Arana DO 12:01 PM 09/29/23 Pulmonary and Critical Care Medicine documented in this [facility]02-13-2024 History of Present illness Narrative* Stephanie Arana DO - 09/29/2023 10:45 AM EST [facility] Care Medicine [address] [place] [id number] Pulmonary Patient Visit - [facility] 09/29/2023 Referring Physician: CELIA AL DO Reason for Referral: Lung Nodules History of Present Illness Rolando Peters is a 78 y.o. female with history of stage I triple negative breast cancer s/p left mastectomy 05/2011, right-sided breast cancer s/p mastectomy 06/1994 s/p adjuvant chemo/tamoxifen, CKD who presented for evaluation of multiple PET avid pulmonary nodules. Patient reported she follows with oncology Dr. Marcus. Stated that she was referred to Dr. Marcus as she has had progressive weightloss, about 50 pounds since 07/2022. Admitted to a chronic mostly nonproductive cough and postnasaldrip. Reported progressive CRUZ with stairs, denied any shortness of breath at rest. Stated she was diagnosed with exercise-induced asthma several years ago, has an albuterol inhaler which she rarely requires. Denied any hemoptysis, chest pain, night sweats. Initially diagnosed with INGA in 2007, completed PSG and prescribed CPAP with nasal mask, but has not been compliant. 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 Family history of malignancy: Father with lung cancer, mother with ovarian cancer Age appropriate cancer screening Mammography: S/p B/L mastectomies PAP: S/p hysterectomy due to heavy menses Colonoscopy: Previously normal PastMedical History Past Medical History: Diagnosis Date Arthritis Asthma Breast cancer (HCC) 1993 Right Breast(Mastectomy) Breast cancer (HCC) 2010 Left Breast(Simple Mastectomy, SLND) Chronic kidney disease Diabetes (HCC) GERD (gastroesophageal reflux disease) High blood pressure Occlusion and stenosis of unspecified carotid artery Pure hypercholesterolemia Syncope and collapse 08/29/2022 Past Surgical History Past Surgical History: Procedure Laterality Date CAROTID ENDARTERECTOMY Right 2009 CATARACT EXTRACTION 2006 MASTECTOMY Left 2010 simple/reconstruction/gingivagrapht MASTECTOMY Right 1993 reconstruction (TRAM) TOTAL ABDOMINAL HYSTERECTOMY W/ BILATERAL SALPINGOOPHORECTOMY 1998 TUBAL LIGATION 1979 Allergies Allergies Allergen Reactions Isosulfan Blue Anaphylaxis Methylene Blue Sulfa Antibiotics Rash Medications Medication Documentation Review Audit Reviewed by Stephanie Arana DO (Physician) on 09/29/23 at 1156 Medication Order Taking? Sig Documenting Provider Last Dose Status albuterol 108 (90 Base) MCG/ACT inhaler [id number] Yes albuterol sulfate HFA 90 mcg/actuation aerosolinhaler Historical Provider, Taking Active aspirin 81 MG chewable tablet [id number] Yes daily. Historical Provider, Taking Active cholecalciferol (Vitamin D-3) 50 MCG (1999) tablet [id number] Yes Take 4,000 Units by mouth daily.Historical Provider, Taking Active citalopram (CeleXA) 20 MG tablet [id number] Yes Take 20 mg by mouth daily. Historical Provider, Taking Active ezetimibe (Zetia) 10 MG tablet [id number] Yes Take 1 tablet (10 mg) by mouth in the morning. Marcia Correa APRN - FRANSISCO Taking Active Finerenone (Kerendia) 10 MG tablet [id number] Yes Take 1 tablet by mouth daily. Historical Provider, Taking Active Jentadueto XR 2.5-1000 MG per 24 hr tablet [id number] Yes take 2 tablets by mouth once daily Historical Provider, Taking Active lansoprazole (Prevacid) [address] capsule [id number] Yes 1 capsule in the morning. Historical Provider, Taking Active losartan (Cozaar) 100 MG tablet [id number] Yes losartan 100 mg tablet Historical Provider, Taking Active metoprolol tartrate (Lopressor) 25 MG tablet [id number] Yes metoprolol tartrate 25 mg tablet Historical Provider, Taking Active rosuvastatin (Crestor) 10 MG tablet [id number] Yes daily. 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 Substance Use Topics Alcohol use: Yes Alcohol/week: 0.0 - 14.0 standard drinks of alcohol Comment: occ FamilyHistory Family History Problem Relation Name Age of Onset Ovarian cancer Mother 66 Heart attack Father Baljeet 76 High Blood Pressure Father Baljeet Macular degeneration Father Baljeet Ovarian cancer Mother's Sister 45 Other ([id number]) Son neuofibromatosis, BRCA1 positive Neurofibromatosis Son High Blood Pressure Son Cancer Son hairy cell leukemia Breast cancer Cousin 42 +brca Bladder Cancer Cousin 19 Review of Systems Review of Systems Constitutional: Positive for unexpected weight change. Negative for chills and fever. HENT: Positive for postnasal drip. Respiratory: Positive for cough and shortness of breath. Negative for chest tightness and wheezing. Cardiovascular: Negative. Allergic/Immunologic: Negative. Physical Exam Vitals: 09/29/23 1050 BP: (!) 146/78 BP Location: Left arm Patient Position: Sitting BP Cuff Size: Large adult Pulse: 97 Resp: 18 Temp: 36.1 C (96.9 F) SpO2: 96% Weight: 145 lb (65.8 kg) Height: 5' 7 (1.702 m) Physical Exam Vitals reviewed. Constitutional: General: She is not in acute distress. Appearance: Normal appearance. HENT: Head: Normocephalic and atraumatic. Nose: No congestion. Mouth/Throat: Mouth: Mucous membranes are moist. Eyes: General: No scleral icterus. Extraocular Movements: Extraocular movements intact. Cardiovascular: Rate and Rhythm: Normal rate and regular rhythm. Pulmonary: Effort: Pulmonary effort is normal. No respiratory distress. Breath sounds: Normal breath sounds. No wheezing, rhonchi or rales. Musculoskeletal: General: No swelling or tenderness. Skin: General: Skin is warm and dry. Neurological: Mental Status: She is alert and oriented to person, place, and time. Psychiatric: Mood and Affect: Mood normal. Labs: Available studies were reviewed Radiology: Personally reviewed and interpreted Chest CT 08/24/2023: Interval development of scattered focal consolidations in the lungs, particularly in the apical left lung lobes as discussed. Recommended short-term follow-up imaging to document resolution. Interval development of new lateral right middle lung lobe nodule with interval enlargement of other previously noted nodules as discussed. Further clinical attention and workup is warranted. Moderate pulmonary emphysema. Coronary and aortic atherosclerosis. Other chronic findings as discussed. PET/CT 09/17/23: 1 cm irregular nodular density within the lateral aspect of the right upper lobe onthe low-dose CT images demonstrates intense FDG accumulation, consistent with malignancy. A 7 mm nodular density within the anteromedial right lower lobe also demonstrates abnormal FDG accumulation, suspicious for malignancy. A streaky density within the left lower lobe on the low-dose CT images demonstrates mild FDG accumulation, less than typically expected for malignancy. A small, somewhat streaky nodular density within the medial aspect of the right lower lobe also demonstrates mild FDG uptake. There is a linear density at the posterior aspect of the left lung apex which demonstrate mild to moderate FDG accumulation which is nonspecific, however the linear configuration of this area is more suggestive of an inflammatory etiology. CT follow-up of these findings is recommended. No evidence of regional edmond or distant metastatic disease. PFT's: Assessment/plan: Hypermetabolic pulmonary nodules Hx breast ca s/p B/L mastectomies CRUZ Post nasal drip INGA Former smoker -Chest imaging reviewed with patient and spouse, discussed multiple new or enlarging pulmonary nodules. Most avid nodules are SUV 7.2 right middle lobe and SUV 4.9 right lower lobe. Left upper lobe streaky density has moderate uptake SUV 3.2. No avid lymphadenopathy. Discussed possible etiologies and options for biopsy. Recommended ENB/EBUS for tissue diagnosis and cultures. Procedure explained in detail including risks of bleeding, pneumothorax, anesthesia, and nondiagnostic procedure. Patientdoes not take anticoagulation, has no history of coagulopathies or liver disease. Recent CBC reviewed. All questions answered. Patient agreeable to proceed. -Noted with emphysema on CT and patient has had progressive CRUZ. PFTs ordered. Continue with albuterol as needed. -Patient reported she is noncompliant with her CPAP as she is unable to tolerate anything around her nose. Follow up: After bronchoscopy to review results Please seek immediate medical attention for any worsening or worrying new symptoms. Patient education, benefits, risks, and precautions provided. Management plan was discussed in detail and in agreement. All questions or concerns answered to satisfaction and understood. Stephanie Arana DO 12:01 PM 09/29/23 Pulmonary and Critical Care Medicine documented in this [facility]02-13-2024 Instructions* Patient Instructions* Celeste Pruett LPN - 09/29/2023 10:45 AM EST YOUR APPOINTMENT TODAY WAS WITH THE [facility] LUNG NODULE CLINIC, COPD CLINIC, PULMONARY AND SLEEP MEDICINE OFFICE. PLEASE CALL OUR OFFICE AT [phone] IF YOU HAVE NOT RECEIVED YOUR TEST RESULTS 7 DAYS AFTER TESTING IS COMPLETED. PLEASE REMEMBER TO REQUEST REFILLS AT YOUR OFFICE VISITS. PHONE/FAX REQUESTS REQUIRE 48-72 HOURS FOR RESPONSE. A FRIENDLY REMINDER COPAYS ARE DUE AT TIME OF SERVICE. THANK YOU. Our Patients Are Important! We want to improve and you can help. After your visit we want you to feel: Listened to, Respected and have your health care explained. You may receive a survey asking you about your visit. Please complete the survey. We will use your feedback to make improvements. COVID-19 VACCINATION INFORMATION: [facility] [phone] [facility]/CORONAVIRUS/VACCINE [facility] Central Scheduling [phone] [facility] Sleep Scheduling [phone] documented in this [facility]02-13-2024 Instructions* Patient Instructions* Celeste Pruett LPN - 09/29/2023 10:45 AM EST YOUR APPOINTMENT TODAY WAS WITH THE [facility] LUNG NODULE CLINIC, COPD CLINIC, PULMONARY AND SLEEP MEDICINE OFFICE. PLEASE CALL OUR OFFICE AT [phone] IF YOU HAVE NOT RECEIVED YOUR TEST RESULTS 7 DAYS AFTER TESTING IS COMPLETED. PLEASE REMEMBER TO REQUEST REFILLS AT YOUR OFFICE VISITS. PHONE/FAX REQUESTS REQUIRE 48-72 HOURS FOR RESPONSE. A FRIENDLY REMINDER COPAYS ARE DUE AT TIME OF SERVICE. THANK YOU. Our Patients Are Important! We want to improve and you can help. After your visit we want you to feel: Listened to, Respected and have your health care explained. You may receive a survey asking you about your visit. Please complete the survey. We will use your feedback to make improvements. COVID-19 VACCINATION INFORMATION: [facility] [phone] [facility] [place]/CORONAVIRUS/VACCINE [facility] Central Scheduling [phone] [facility] Sleep Scheduling [phone] documented in this [facility]02-13-2024 Miscellaneous Notes* Addendum Note - Dolly Salgado - 09/29/2023 10:45 AM ESTAddended by: DOLLY SALGADO on: 10/05/2023 10:09 AM Modules accepted: Orders documented in this [facility]02-13-2024 Note* Addendum Note - Dolly Salgado - 09/29/2023 10:45 AM ESTAddended by: DOLLY SALGADO on: 10/05/2023 10:09 AM Modules accepted: Orders [place] [address]-13-2024 Note* Addendum Note - Dolly Salgado - 09/29/2023 10:45 AM ESTAddended by: DOLLY SALGADO on: 10/05/2023 10:09 AM Modules accepted: Orders [place] [address]-13-2024 Note* Addendum Note - Dolly Salgado - 09/29/2023 10:45 AM ESTAddended by: DOLLY SALGADO on: 10/05/2023 10:09 AM Modules accepted: Orders [place] [address]-13-2024 Note* Addendum Note - Dolly Salgado - 09/29/2023 10:45 AM ESTAddended by: DOLLY SALGADO on: 10/05/2023 10:09 AM Modules accepted: Orders [place] [address]-13-2024 Note* Addendum Note - Dolly Salgado - 09/29/2023 10:45 AM ESTAddended by: DOLLY SALGADO on: 10/05/2023 10:09 AM Modules accepted: Orders [place] [address]-09-2024 Telephone encounter Note* Telephone Encounter - Karime Marie RN - 09/25/2023 1:52 PM EST Noted; thanks! [place] [address]-09-2024 Miscellaneous Notes* Telephone Encounter - Karime Marie RN - 09/25/2023 1:52 PM EST Noted; thanks! * Telephone Encounter - Karlyjose Arango - 09/25/2023 12:14 PM EST FYI, Scheduled on 09/29/[address] Natalia Wren documented in this [facility]St[id number] Telephone encounter Note* Telephone Encounter - Karlyvianey Arango - 09/25/2023 12:14 PM EST FYI, Scheduled on 09/29/[address] [facility]ren [id number] History of Present illness Narrative* Keven Priest MD - 09/25/2023 11:15 AM EST Images from the original note were not included. Keven Marcus MD [facility] Hematology/Oncology - [facility] [address] [facility] [address] [place] [address] Dept: [phone] Dept PROBLEM LIST: 1.Weight loss 2. Stage I LEFT sided (pT1b pN0) Triple negative breast cancer: -05/19/2011 LEFT mastectomy showed 0.6cm poorly differentiated carcinoma. LN evaluation was negativefor disease. -s/p TC x 4 until 11/2011 3. RIGHT sided breast cancer: S/p RIGHT sided mastectomy w/ axillary LN dissection 07/08/1994 followed by adjuvant chemo, followed by 5 yrs of tamoxifen. Treated by Dr. Lisa Llamas -s/p R breast reconstruction 1993 4. BRCA1 mutation positive: S/p bilateral mastectomy and TAHBSO ASSESSMENT AND PLAN: Rolando Peters is a 78 y.o. female here for 1. History of bilateral breast cancer -12/15/2022 CT / bone scan= no overt evidence of malignancy. However with the lung nodules required follow up -04/17/2023 CT chest = mostly stable outside of 2 new sub-CM nodules. -08/24/23 CT chest = Interval development of new right lung nodule with enlargement of other previously noted nodules -09/17/23 PET = RUL lesion (1cm) concerning for malignancy. But also RLL lesion suspicious (only 7mm). I will refer the patient to pulmonary medicine to evaluate the PET scan findings further. While the patient does have a history of breast cancer, the patient is also former smoker of note - Follow-up after pulmonary evaluation On this date, 09/25/23 , I have spent 30 minutes preparing to see the patient, reviewing previous notes and test results, completing clinical documentation as well as with [id number] patient care, performing a medically appropriate examination, counseling / educating the patient/family/caregiver,and ordering medications, tests, or procedures. HPI: Rolando Peters is a 78 y.o. female who presents here today with breast cancer Here today w/ Ene, daughter She had MRI at [facility] due to back pain . She had Cscope this summer which she reports was normal She has lost 50lbs in 1 year. She notes yesterday blood tinged sputum (new issues). She feels well overall. Past Medical History: Diagnosis Date Arthritis Asthma Breast cancer (HCC) 1993 Right Breast(Mastectomy) Breast cancer (HCC) 2010 Left Breast(Simple Mastectomy, SLND) Chronic kidney disease Diabetes (HCC) GERD (gastroesophageal reflux disease) High blood pressure Occlusion and stenosis of unspecified carotid artery Pure hypercholesterolemia Syncope and collapse 08/29/2022 Past Surgical History: Procedure Laterality Date CAROTID ENDARTERECTOMY Right 2009 CATARACT EXTRACTION 2006 MASTECTOMY Left 2010 simple/reconstruction/gingivagrapht MASTECTOMY Right 1993 reconstruction (TRAM) TOTAL ABDOMINAL HYSTERECTOMY W/ BILATERAL SALPINGOOPHORECTOMY 1998 TUBAL LIGATION 1978 Current Outpatient Medications on File Prior to Visit Medication Sig Dispense Refill albuterol 108 (90 Base) MCG/ACT inhaler albuterol sulfate HFA 90 mcg/actuation aerosol inhaler aspirin 81 MG chewable tablet daily. cholecalciferol (Vitamin D-3) 50 MCG (1999) tablet Take 4,000 Units by mouth daily. citalopram (CeleXA) 20 MG tablet Take 20 mg by mouth daily. ezetimibe (Zetia) 10 MG tablet Take 1 tablet (10 mg) by mouth in the morning. 90 tablet 1 Finerenone (Kerendia) 10 MG tablet Take 1 tablet by mouth daily. Jentadueto XR 2.5-1000 MG per 24 hr tablet take 2 tablets by mouth once daily lansoprazole (Prevacid) [address] capsule 1 capsule in the morning. losartan (Cozaar) 100 MG tablet losartan 100 mg tablet metoprolol tartrate (Lopressor) 25 MG tablet metoprolol tartrate 25 mg tablet rosuvastatin (Crestor) 10 MG tablet daily. Vascepa 1 g capsule TAKE 2 CAPSULES BY MOUTH 2 TIMES DAILY 360 capsule 3 [DISCONTINUED] ezetimibe (Zetia) 10 MG tablet Take 1 tablet (10 mg) by mouth in the morning. 90 tablet 1 No current facility-administered medications on file prior to visit. 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 Vaping Use Vaping Use: Never used Substance and Sexual Activity Alcohol use: Yes Alcohol/week: 0.0 - 14.0 standard drinks of alcohol Comment: occ Drug use: No Sexual activity: Not on file Other Topics Concern Not on file Social History Narrative Not on file Social Determinants of Health Financial Resource Strain: Not on file Food Insecurity: Not on file Transportation Needs: Not on file Physical Activity: Not on file Stress: Not on file Social Connections: Not on file Intimate Partner Violence: Not on file Housing Stability: Not on file Family History Problem Relation Name Age of Onset Ovarian cancer Mother 66 Heart attack Father Baljeet 76 High Blood Pressure Father Baljeet Macular degeneration Father Baljeet Ovarian cancer Mother's Sister 45 Other ([id number]) Son neuofibromatosis, BRCA1 positive Neurofibromatosis Son High Blood Pressure Son Cancer Son hairy cell leukemia Breast cancer Cousin 42 +brca Bladder Cancer Cousin 19 Allergies Allergen Reactions Isosulfan Blue Anaphylaxis Methylene Blue Sulfa Antibiotics Rash Reviewed medications, allergies, past medical history, social history, family history as above. PHYSICAL EXAM: ECOG 1-2 BP (!) 178/69 Pulse 72 Temp 36.3 C (97.3 F) (Temporal) Ht 1.702 m (5' 7) Wt 66.2 kg (146 lb) SpO2 97% BMI 22.87 kg/m CONSTITUTIONAL: see VS. No apparent distress. SKIN: No rashes PYSCH: AAOx3. Mood and affect appropriate, patient interactive Labs Most recent labs reviewed Lab Results Component Value Date CO2 24 12/03/2022 BUN 20 12/03/2022 CREATININE 0.83 12/03/2022 GLUCOSE 130 (H) 12/03/2022 CALCIUM 8.7 12/03/2022 PROT 6.5 12/03/2022 BILITOT 0.6 12/03/2022 ALKPHOS 45 12/03/2022 AST 14 12/03/2022 ALT 12 12/03/2022 Lab Results Component Value Date WBC 6.9 12/03/2022 HGB 12.8 12/03/2022 HCT 38.2 12/03/2022 MCV 89.9 12/03/2022 PLT 244 12/03/2022 RBC 4.25 12/03/2022 MCH 30.1 12/03/2022 MCHC 33.5 12/03/2022 RDW 12.7 12/03/2022 August 30, 2022 labs: CBC: 8.9/13.5/41.4/254 Creatinine 0.87 Alk phos 46 Total bilirubin 0.7 Urine protein electrophoresis = positive marked proteinuria Serum protein electrophoresis = normal October 16, 2022 labs: CBC: 6.3/13.4/21.7/269 MCV 94 No differential Radiology reviewed: 08/29/2022 CXR = IMPRESSION: 1. No evidence of acute cardiopulmonary process. 11/04/2022 CXR = FINDINGS: The lungs are hyperinflated. There is no focal lung consolidation or effusion. There is no edema. The cardiac silhouette is within normal limits for size. 11/14/2022 shoulder xray Mild AC degenerative changes. Dystrophic calcifications in the distal rotator cuff tendons ----12/15/2022 CT = COMPARISON: CT chest dated 06/16/2012 CHEST: No focal consolidation is seen within the lungs. There is no pleural effusion or pneumothorax. Mildemphysematous changes are noted within the lungs. There is a subpleural nodule at the left costophrenic sulcus measuring [address] image 283 of 376, unchanged when compared to the CT from 06/16/2012. 3 mm subpleural nodule within the left lower lobe in image 257 is unchanged. A 3 mm subpleural nodule within the right lower lobe in image 293is unchanged. There is a 4 mm nodule within the right lung base in image 277, new when compared to the prior study. A small area of streaky, irregular parenchymal density within the lateral aspect ofthe right lung near the confluence of the right major and minor fissures laterally appears stable when compared to the prior examination. There is a small cluster of reticulonodular densities within the lateral aspect of the right middle lobe, not present on the prior study. There is no hilar, mediastinal, or axillary lymphadenopathy. Postoperative changes consistent with right mastectomy are noted. There is a left breast implant. The heart size is within normal limits. There is no pericardial effusion. Fairly extensive coronary artery calcification is noted. The thoracic aorta appears normal in caliber. No lytic or blastic lesions are seen on the bone windows. IMPRESSION: No lymphadenopathy is identified within the chest. Several small noncalcified nodules within the lungs bilaterally are noted, as described above. Mostof these appear stable when compared to the study from 06/16/2012, however there is a new 4 mm nodule within the right lung base which is nonspecific. A small cluster of reticulonodular densities within the lateral aspect of the right middle lobe is also a new, and is favored to be inflammatory or infectious. Given the patient's history of breast cancer, routine CT follow- up is recommended to ensure stability. Mild emphysematous changes. ABDOMEN AND PELVIS: The liver, gallbladder, spleen, pancreas, adrenal glands and kidneys appear within normal limits. The abdominal aorta is normal in caliber. Scattered vascular calcification is noted. There is no retroperitoneal, pelvic, or inguinal lymphadenopathy. The urinary bladder appears grossly normal. The uterus has been removed. The large and small bowel appears within normal limits without evidence of wall thickening or dilatation. There is no free fluid within the abdomen or pelvis. There is no free air under the diaphragm. No lytic or blastic lesions are seen on the bone windows. IMPRESSION: No lymphadenopathy or suspicious mass is identified within the abdomen or pelvis. ---12/15/2022 bone scan= BONE SCINTIGRAPHY (WHOLE BODY) CLINICAL INDICATION: Weight loss, shoulder pain, history of breast cancer Delayed whole body imaging was performed in the standard anterior and posterior projections following the intravenous administration of 22.1 mCi of technetium- 99m MDP. Additional spot views of the skull, pelvis, and ribs were also obtained. COMPARISON: CT chest abdomen and pelvis performed the same day FINDINGS: No evidence of osseous metastatic disease is identified. There is mild to moderate increased traceruptake within the cervical spine and right shoulder, likely degenerative etiology. More mild increased tracer uptake is noted within the left shoulder, thoracic and lumbar spine, wrists, hips, ankles, and feet. IMPRESSION: No evidence of osseous metastatic disease. Likely degenerative changes of the spine and joints as above. -04/17/2023 CT chest = CONTRAST: No IV contrast. COMPARISON: 12/15/2022 CT CHEST FINDINGS: Lungs: Mild centrilobular emphysematous changes noted. Right middle lobe lateral reticular nodular densities are unchanged. Nodules: Right middle lobe, 3 mm nodule, unchanged (image 245:5) Right lower lobe nodules, 4 mm and 5 mm, new (images 249 and 256:5). Right lower lobe, 4 mm nodule, unchanged since 12/15/2022 (image 265:5). Right lower lobe, 3 mm subpleural nodule laterally, unchanged (image 276:5). Left lower lobe, 5 mm nodule at costophrenic sulcus, unchanged (image 270:5). Left lower lobe, 3 mm subpleural nodule laterally, unchanged (image 244:5). Mediastinum and Jody: There is no lymphadenopathy. Central airway: The central airway is patent. Tracheobronchial tree calcifications are present. Thyroid and Esophagus: The thyroid gland contour is normal. The esophagus is not well-distended. A small sliding-type hiatal hernia is present. Heart and Great Vessels: Atherosclerotic calcifications of the aorta and coronary arteries are noted. Mitral annulus calcifications are present. The cardiac silhouette is not enlarged. There is no sizable pericardial effusion. Osseous structures: There is no suspicious blastic or lytic lesion. Multilevel endplate degenerative changes are present. Axilla and Soft tissue: There is no axillary adenopathy. Left breast mastectomy with implant reconstruction. Upper abdomen: The adrenal glands are within normal limits. IMPRESSION: 1. Bilateral small pulmonary nodules. Most of the nodules are stable compared to prior exams however there are two new right lower lobe pulmonary nodules measuring 4 mm and 5 mm. 2. Stable reticular nodular densities within the right middle lobe laterally. 3. Mild centrilobular emphysema. 2017 - UPDATED FLEISCHNER SOCIETY GUIDELINES FOR MANAGEMENT OF SMALL PULMONARY NODULES DETECTED ON CT Note: Recommendations do not apply for lung cancer screening, patients with immunosuppression or with known cancer. Dimensions are average of long and short axis rounded to the millimeter MULTIPLE NODULES: LOW RISK PATIENT (Use most suspicious nodule to manage guidelines) All <6mm - No follow up Any >6mm - 3-6 months, then consider 18-24 months MULTIPLE NODULES: HIGH RISK PATIENT (Use most suspicious nodule to manage guidelines) All <6mm - No follow up Any >6mm - 3-6 months, then 18-24 months -----08/24/23 CT chest = COMPARISON: 04/17/2023 FINDINGS: Airway: Tracheobronchial tree remains patent. Lungs: Moderate centrilobular and paraseptal emphysematous changes are noted. Interval development of apical left lower lung lobe consolidation (series 3 axial image 39 and 118), with other new scattered opacities seen in the interval as annotated in PACS. In the lateral peripheral right middle lung lobe, new pleural nodule is noted measuring 1.4 x 0.9 cm in axial dimension (series 3 axial image 204). In the lateral inferior right middle lung lobe, stable 3 mm nodule noted (series 3 axial image 244). In the right lower lung lobe, interval enlargement of nodule is noted measuring 8 mm (previously measuring 4 mm, series 3 axial image 246). Adjacent nodule noted measuring 7 mm (previously measuring 5 mm, series 3 axial image 255). Stable posterior lateral right lower lung lobe 3 mm nodule (series 3 axial image 272). Basilar lateral left lower lung lobe, stable costophrenic sulcus nodule measuring 5 mm (series 3 axial image 272). In the lateral left lower lung lobe, stable 3 mm nodule noted (series 3 axial image 248). Pleura: No pleural thickening or effusion. Heart/Great vessels: Normal heart size with no pericardial effusion. There is significant coronary artery calcification.Atherosclerotic calcifications are noted in the thoracic aorta and branch vasculature. The pulmonary arteries normal in caliber. Mediastinum/Jody: No enlared mediastinal, hilar, or axillary lymph nodes. Thyroid: Thyroid is normal in appearance. Esophagus: Esophagus is unremarkable. Visualized Upper Abdomen: The visualized upper abdomen is unremarkable. Chest wall: Postsurgical changes are noted in the breasts, with breast prosthesis noted on the left. Bones: No suspicious osseous lesions. Mild degenerative changes of the thoracic spine are observed. IMPRESSION: Interval development of scattered focal consolidations in the lungs, particularly in the apical left lung lobes as discussed. Recommended short-term follow-up imaging to document resolution. Interval development of new lateral right middle lung lobe nodule with interval enlargement of other previously noted nodules as discussed. Further clinical attention and workup is warranted. Moderate pulmonary emphysema. Coronary and aortic atherosclerosis. Other chronic findings as discussed. For these nodule characteristics, Fleischner society recommends consideration of CT follow-up at 3 months versus PET/CT or biopsy if lesion larger than 1 cm. Report Dictated on Electronically Signed By: Keyon Morales MD -------09/17/23 PET = PET/CT CLINICAL INDICATION: SPN COMPARISON: CT chest dated 08/24/2023 NECK AND CHEST: There is intense (maximal SUV 7.2) FDG accumulation within the lateral aspect of the right upper lobe which corresponds to an irregular nodular density on the low-dose CT images measuring up to approximately 1 cm diameter. The intensity of uptake is consistent with malignancy. A smaller irregular nodular density within the medial aspect of the right lower lobe on axial image 135 of 300 also demonstrate abnormally increased FDG uptake (maximal SUV 4.9), suspicious for malignancy. This nodule measures approximately 7 mm in greatest diameter on the low-dose CT images. There is an irregular streaky density within the left lower lobe which demonstrate mild FDG uptake (maximal SUV 2.1), less than typically expected for malignancy. A small nodular density within the medial aspect of the right lower lobe on image 107 also demonstrates mild FDG accumulation (maximal SUV 2.1). Streaky density at the posterior aspect of the left lung apex demonstrates mild to moderateFDG uptake (maximal SUV 3.2), nonspecific. Emphysematous changes are noted within the lungs. No FDG avid lymphadenopathy is identified within the neck or the chest ABDOMEN AND PELVIS: No abnormal FDG accumulation is seen within the abdomen or pelvis. MUSCULOSKELETAL: Unremarkable. No evidence of osseous metastatic disease. IMPRESSION: 1 cm irregular nodular density within the lateral aspect of the right upper lobe on the low-dose CTimages demonstrates intense FDG accumulation, consistent with malignancy. A 7 mm nodular density within the anteromedial right lower lobe also demonstrates abnormal FDG accumulation, suspicious for malignancy. A streaky density within the left lower lobe on the low-dose CT images demonstrates mild FDG accumulation, less than typically expected for malignancy. A small, somewhat streaky nodular density within the medial aspect of the right lower lobe also demonstrates mild FDG uptake. There is a linear density at the posterior aspect of the left lung apex which demonstrate mild to moderate FDG accumulation which is nonspecific, however the linear configuration of this area is more suggestive of an inflammatory etiology. CT follow-up of these findings is recommended. No evidence of regional edmond or distant metastatic disease. 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 documented in this [facility]02-05-2024 Telephone encounter Note* Telephone Encounter - SUJATA Negrete CNP - 09/21/2023 8:41 AM EST LDL 45 on lipids 10/2022. Controlled. Lipids per PCP next month. [id number] Miscellaneous Notes* Telephone Encounter - SUJATA Negrete CNP - 09/21/2023 8:41 AM EST LDL 45 on lipids 10/2022. Controlled. Lipids per PCP next month. documented in this [facility]01-18-2024 NoteHNO ID: [id number] Author: ALBA JEAN RT(Kelsy) Service: ? Author Type: Technologist Type: Progress Notes Filed: 09/03/2023 15:11 Note Text: Summary: xray Radiology Service Progress Note PATIENT NAME: Rolando Peters DATE OF SERVICE: September 03, 2023 TIME: 3:11 PM PATIENT IDENTITY VERIFICATION COMPLETED USING TWO (2) IDENTIFIERS: Name and Date of confirmed by patient verbally. FALL SCREENING: Has the patient had 2 falls in the last year or 1 fall with injury or currently using an Ambulatory Assistive Device (Walker, Cane, Wheelchair, Crutches, etc.)? No PATIENT GENDER DATA: Female. status: : No status: NO. PATIENT RELEVANT IMPLANT DATA REVIEWED: Not Applicable RADIOLOGY DEPARTMENT: General X-ray: Exam(s) Completed: Spine X-Ray(s): Scoliosis Series PERIPHERAL IV DATA: Not applicable SIGNED BY: Alba Jean, RT(R) September 03, 2023 3:11 [facility] of Present illness Narrative* Celia Al DO - 08/28/2023 1:00 PM EST Subjective Patient ID: Rolando Peters is a 78 y.o. female who presents for Follow-up. HPI Patient presents to follow-up on her weight loss. She is going to have a colonoscopy and endoscopy.This was done by Dr. Lindsay. Patient has history of Stage I LEFT sided (pT1b pN0) Triple negative breast cancer: -05/19/2011 LEFT mastectomy showed 0.6cm poorly differentiated carcinoma. LN evaluation was negativefor disease. -s/p TC x 4 until 11/2011 RIGHT sided breast cancer: S/p RIGHT sided mastectomy w/ axillary LN dissection 07/08/1994 followed by adjuvant chemo, followed by 5 yrs of tamoxifen. Treated by Dr. Lisa Llamas -s/p R breast reconstruction 1993 BRCA1 mutation positive: S/p bilateral mastectomy and TAHBSO Recently saw hip hop dancer oncologist to said that there was no overt evidence of malignancy howeverwith lung nodules recommended a repeat CT scan in 3 to 4 months in November had some lab work performed by hematology oncology was stable and recommended a follow-up with hematology oncology after has arepeat CT scan in 3 to 4 months. She just saw Dr. Angeline john/onc that did a pet scan that was normal. He did find a 4 mm lung nodule on the right side. He is going to repeat a CT of her chest in August and see him again at that time. She also sees her [place] in August as well. Patient has lost an additional 4 pounds since May. Review of Systems Constitutional: Positive for appetite change and unexpected weight change. Negative for activity change, fatigue and fever. HENT: Negative for congestion. Respiratory: Negative for cough, choking and chest tightness. Cardiovascular: Negative for chest pain, palpitations and leg swelling. Musculoskeletal: Negative for arthralgias, back pain and gait problem. Skin: Negative for color change and pallor. Neurological: Negative for dizziness, facial asymmetry, light-headedness and headaches. Objective BP 146/62 (BP Location: Left arm) Pulse 73 Wt 66.9 kg (147 lb 6.4 oz) BMI 23.09 kg/m BSA Body surface area is 1.78 meters squared. Physical Exam Constitutional: General: She is not in acute distress. Appearance: Normal appearance. She is not toxic-appearing. HENT: Head: Normocephalic. Right Ear: Tympanic membrane, ear canal and external ear normal. Left Ear: Tympanic membrane, ear canal and external ear normal. Eyes: Conjunctiva/sclera: Conjunctivae normal. Pupils: Pupils are equal, round, and reactive to light. Cardiovascular: Rate and Rhythm: Normal rate and regular rhythm. Pulses: Normal pulses. Heart sounds: Normal heart sounds. Pulmonary: Effort: No respiratory distress. Breath sounds: No wheezing, rhonchi or rales. Musculoskeletal: General: No swelling or tenderness. Cervical back: No tenderness. Skin: Findings: No lesion or rash. Neurological: General: No focal deficit present. Mental Status: She is alert and oriented to person, place, and time. Mental status is at baseline. Gait: Gait normal. Psychiatric: Mood and Affect: Mood normal. Behavior: Behavior normal. Thought Content: Thought content normal. Judgment: Judgment normal. Lab on 08/18/2023 Component Date Value Ref Range Status WBC 08/18/2023 7.4 4.4 - 11.3 x10*3/uL Final nRBC 08/18/2023 0.0 0.0 - 0.0 /100 WBCs Final RBC 08/18/2023 4.08 4.00 - 5.20 x10*6/uL Final Hemoglobin 08/18/2023 12.6 12.0 - 16.0 g/dL Final Hematocrit 08/18/2023 40.6 36.0 - 46.0 % Final MCV 08/18/2023 100 80 - 100 fL Final MCH 08/18/2023 30.9 26.0 - 34.0 pg Final MCHC 08/18/2023 31.0 (L) 32.0 - 36.0 g/dL Final RDW 08/18/2023 12.4 11.5 - 14.5 % Final Platelets 08/18/2023 271 150 - 450 x10*3/uL Final Neutrophils % 08/18/2023 68.0 40.0 - 80.0 % Final Immature Granulocytes %, Automated 08/18/2023 0.4 0.0 - 0.9 % Final Immature Granulocyte Count (IG) includes promyelocytes, myelocytes and metamyelocytes but does not include bands. Percent differential counts (%) should be interpreted in the context of the absolute cell counts (cells/UL). Lymphocytes % 08/18/2023 18.1 13.0 - 44.0 % Final Monocytes % 08/18/2023 8.2 2.0 - 10.0 % Final Eosinophils % 08/18/2023 3.9 0.0 - 6.0 % Final Basophils % 08/18/2023 1.4 0.0 - 2.0 % Final Neutrophils Absolute 08/18/2023 5.03 1.60 - 5.50 x10*3/uL Final Percent differential counts (%) should be interpreted in the context of the absolute cell counts (cells/uL). Immature Granulocytes Absolute, Au* 08/18/2023 0.03 0.00 - 0.50 x10*3/uL Final Lymphocytes Absolute 08/18/2023 1.34 0.80 - 3.00 x10*3/uL Final Monocytes Absolute 08/18/2023 0.61 0.05 - 0.80 x10*3/uL Final Eosinophils Absolute 08/18/2023 0.29 0.00 - 0.40 x10*3/uL Final Basophils Absolute 08/18/2023 0.10 0.00 - 0.10 x10*3/uL Final Glucose 08/18/2023 101 (H) 74 - 99 mg/dL Final Sodium 08/18/2023 137 136 - 145 mmol/L Final Potassium 08/18/2023 4.8 3.5 - 5.3 mmol/L Final MILD HEMOLYSIS DETECTED. The result may be falsely elevated due to hemolysis or other interferents.Clinical correlation is recommended. Repeat testing may be considered. Chloride 08/18/2023 102 98 - 107 mmol/L Final Bicarbonate 08/18/2023 21 21 - 32 mmol/L Final Anion Gap 08/18/2023 19 10 - 20 mmol/L Final Urea Nitrogen 08/18/2023 17 6 - 23 mg/dL Final Creatinine 08/18/2023 0.80 0.50 - 1.05 mg/dL Final eGFR 08/18/2023 76 >60 mL/min/1.73m*2 Final Calculations of estimated GFR are performed using the 2020 CKD-EPI Study Refit equation without therace variable for the IDMS-Traceable creatinine methods. https://jasn.asnjournals.org/content/early//ASN.8093521994 Calcium 08/18/2023 9.2 8.6 - 10.6 mg/dL Final Phosphorus 08/18/2023 4.5 2.5 - 4.9 mg/dL Final MILD HEMOLYSIS DETECTED. The result may be falsely elevated due to hemolysis or other interferents.Clinical correlation is recommended. Repeat testing may be considered. The performance characteristics of phosphorus testing in heparinized plasma have been validated by the individual laboratory site where testing is performed. Testing on heparinized plasma is not approved by the FDA; however, such approval is not necessary. Albumin 08/18/2023 4.0 3.4 - 5.0 g/dL Final Orders Only on 02/18/2023 Component Date Value Ref Range Status Glucose 02/18/2023 94 74 - 99 mg/dL Final Sodium 02/18/2023 137 136 - 145 mmol/L Final Potassium 02/18/2023 4.6 3.5 - 5.3 mmol/L Final Chloride 02/18/2023 102 98 - 107 mmol/L Final Bicarbonate 02/18/2023 23 21 - 32 mmol/L Final Anion Gap 02/18/2023 17 10 - 20 mmol/L Final Urea Nitrogen 02/18/2023 17 6 - 23 mg/dL Final Creatinine 02/18/2023 0.77 0.50 - 1.05 mg/dL Final GFR Female 02/18/2023 79 >90 mL/min/1.73m2 Final Comment: CALCULATIONS OF ESTIMATED GFR ARE PERFORMED USING THE 2020 CKD-EPI STUDY REFIT EQUATION WITHOUT THE RACE VARIABLE FOR THE IDMS-TRACEABLE CREATININE METHODS. https://jasn.asnjournals.org/content/early//ASN.4937783994 Calcium 02/18/2023 9.5 8.6 - 10.6 mg/dL Final Phosphorus 02/18/2023 4.4 2.5 - 4.9 mg/dL Final Comment: The performance characteristics of phosphorus testing in heparinized plasma have been validated by the individual laboratory site where testing is performed. Testing on heparinized plasma is not approved by the FDA; however, such approval is not necessary. Albumin 02/18/2023 4.2 3.4 - 5.0 g/dL Final Protein, Ur 02/18/2023 197 (H) 5 - 24 mg/dL Final Creatinine, Urine 02/18/2023 49.4 20.0 - 320.0 mg/dL Final Prot/Creat, Ur 02/18/2023 3.99 (H) 0.00 - 0.17 mg/mg Creat Final Orders Only on 10/16/2022 Component Date Value Ref Range Status TSH 10/16/2022 1.24 0.44 - 3.98 mIU/L Final Comment: TSH testing is performed using different testing methodology at [facility] than at other [facility]. Direct result comparisons should only be made within the same method. Orders Only on 10/16/2022 Component Date Value Ref Range Status Cholesterol 10/16/2022 133 0 - 199 mg/dL Final Comment: . AGE DESIRABLE BORDERLINE HIGH HIGH 0-19 Y 0 - 169 170 - 199 >/= 200 20-24 Y 0 - 189 190 - 224 >/= 225 >24 Y 0 - 199 200 - 239 >/= 240 All ranges are based on fasting samples. Specific therapeutic targets will vary based on patient-specific cardiac risk. . Pediatric guidelines reference:Pediatrics 2011, 128(S5). Adult guidelines reference: NCEP ATPIII Guidelines, SARAH 2001, 258:2486-97 . Venipuncture immediately after or during the administration of Metamizole may lead to falsely low results. Testing should be performed immediately prior to Metamizole dosing. HDL 10/16/2022 52.7 mg/dL Final Comment: . AGE VERY LOW LOW NORMAL HIGH 0-19 Y < 35 < 40 40-45 ---- 20-24 Y ---- < 40 >45 ---- >24 Y ---- < 40 40-60 >60 . Cholesterol/HDL Ratio 10/16/2022 2.5 Final Comment: REF VALUES DESIRABLE < 3.4 HIGH RISK > 5.0 LDL 10/16/2022 45 0 - 99 mg/dL Final Comment: . NEAR BORD AGE DESIRABLE OPTIMAL HIGH HIGH VERY HIGH 0-19 Y 0 - 109 --- 110-129 >/= 130 ---- 20-24 Y 0 - 119 --- 120-159 >/= 160 ---- >24 Y 0 - 99 100-129 130-159 160-189 >/=190 . VLDL 10/16/2022 36 0 - 40 mg/dL Final Triglycerides 10/16/2022 179 (H) 0 - 149 mg/dL Final Comment: . AGE DESIRABLE BORDERLINE HIGH HIGH VERY HIGH 0 D-90 D 19 - 174 ---- ---- ---- 91 D- 9 Y 0 - 74 75 - 99 >/= 100 ---- 10-19 Y 0 - 89 90 - 129 >/= 130 ---- 20-24 Y 0 - 114 115 - 149 >/= 150 ---- >24 Y 0 - 149 150 - 199 200- 499 >/= 500 . Venipuncture immediately after or during the administration of Metamizole may lead to falsely low results. Testing should be performed immediately prior to Metamizole dosing. Orders Only on 10/16/2022 Component Date Value Ref Range Status Glucose 10/16/2022 125 (H) 74 - 99 mg/dL Final Sodium 10/16/2022 138 136 - 145 mmol/L Final Potassium 10/16/2022 4.8 3.5 - 5.3 mmol/L Final Chloride 10/16/2022 101 98 - 107 mmol/L Final Bicarbonate 10/16/2022 28 21 - 32 mmol/L Final Anion Gap 10/16/2022 14 10 - 20 mmol/L Final Urea Nitrogen 10/16/2022 15 6 - 23 mg/dL Final Creatinine 10/16/2022 0.73 0.50 - 1.05 mg/dL Final GFR Female 10/16/2022 85 >90 mL/min/1.73m2 Final Comment: CALCULATIONS OF ESTIMATED GFR ARE PERFORMED USING THE 2020 CKD-EPI STUDY REFIT EQUATION WITHOUT THE RACE VARIABLE FOR THE IDMS-TRACEABLE CREATININE METHODS. https://jasn.asnjournals.org/content/early//ASN.4759834926 Calcium 10/16/2022 9.7 8.6 - 10.6 mg/dL Final Albumin 10/16/2022 4.2 3.4 - 5.0 g/dL Final Alkaline Phosphatase 10/16/2022 42 33 - 136 U/L Final Total Protein 10/16/2022 6.6 6.4 - 8.2 g/dL Final AST 10/16/2022 13 9 - 39 U/L Final Total Bilirubin 10/16/2022 0.7 0.0 - 1.2 mg/dL Final ALT (SGPT) 10/16/2022 13 7 - 45 U/L Final Comment: Patients treated with Sulfasalazine may generate falsely decreased results for ALT. Orders Only on 10/16/2022 Component Date Value Ref Range Status Phosphorus 10/16/2022 3.8 2.5 - 4.9 mg/dL Final Comment: The performance characteristics of phosphorus testing in heparinized plasma have been validated by the individual laboratory site where testing is performed. Testing on heparinized plasma is not approved by the FDA; however, such approval is not necessary. Orders Only on 10/16/2022 Component Date Value Ref Range Status Vitamin B-12 10/16/2022 236 211 - 911 pg/mL Final Orders Only on 10/16/2022 Component Date Value Ref Range Status Vitamin D, 25-Hydroxy 10/16/2022 53 ng/mL Final Comment: . DEFICIENCY: < 20 NG/ML INSUFFICIENCY: 20-29 NG/ML SUFFICIENCY: 30-100 NG/ML THIS ASSAY ACCURATELY QUANTIFIES THE SUM OF VITAMIN D3, 25-HYDROXY AND VIT D2,25-HYDROXY. Orders Only on 10/16/2022 Component Date Value Ref Range Status Uric Acid 10/16/2022 5.8 2.3 - 6.7 mg/dL Final Comment: Venipuncture immediately after or during the administration of Metamizole may lead to falsely low results. Testing should be performed immediately prior to Metamizole dosing. Orders Only on 10/16/2022 Component Date Value Ref Range Status Protein, Ur 10/16/2022 551 (H) 5 - 24 mg/dL Final Creatinine, Urine 10/16/2022 151.0 20.0 - 320.0 mg/dL Final Prot/Creat, Ur 10/16/2022 3.65 (H) 0.00 - 0.17 mg/mg Creat Final There may be more visits with results that are not included. Current Outpatient Medications on File Prior to Visit Medication Sig Dispense Refill albuterol 90 mcg/actuation inhaler Inhale 2 puffs every 4 hours if needed. aspirin 81 mg EC tablet Take 1 tablet (81 mg) by mouth once daily. cholecalciferol (Vitamin D-3) 50 MCG (2000 UT) tablet Take 2 tablets (4,000 Units) by mouth once daily. citalopram (CeleXA) 20 mg tablet Take 1 tablet (20 mg) by mouth once daily. 90 tablet 3 clindamycin (Cleocin T) 1 % lotion twice a day. Apply sparingly and massage in colchicine 0.6 mg tablet 1 tablet Orally ezetimibe (Zetia) 10 mg tablet Take 1 tablet (10 mg) by mouth once daily. fluocinonide (Lidex) 0.05 % external solution 1 (one) time each day. Apply to affected areas icosapent ethyL (Vascepa) 1 gram capsule Take 2 capsules (2 g) by mouth twice a day. Kerendia 10 mg tablet tablet Take 1 tablet (10 mg) by mouth once daily. lansoprazole (Prevacid) [address] capsule Take 1 capsule (30 mg) by mouth once daily. 90 capsule 3 linagliptin-metformin (Jentadueto XR) 2.5-1,000 mg tablet, IR - ER, biphasic 24hr Take 2 tablets bymouth once daily. 180 tablet 3 losartan (Cozaar) 100 mg tablet Take 1 tablet (100 mg) by mouth once daily. 90 tablet 3 metoprolol tartrate (Lopressor) 25 mg tablet Take 1 tablet (25 mg) by mouth in the morning and 1 tablet (25 mg) before bedtime. 180 tablet 3 rosuvastatin (Crestor) 10 mg tablet Take 1 tablet (10 mg) by mouth once daily. 90 tablet 3 predniSONE (Deltasone) 5 mg tablet 10 then 9 then 8 then 7 etc. until gone (Patient not taking: Reported on 08/28/2023) 55 tablet 0 [DISCONTINUED] amLODIPine (Norvasc) 10 mg tablet Take 1 tablet (10 mg) by mouth once daily. No current facility-administered medications on file prior to visit. No images are attached to the encounter. Assessment/Plan Diagnoses and all orders for this visit: 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 without complication, with long-term current use of insulin ([facility]) Patient to have repeat CT chest August to follow up on 4mm lung nodule Patient to see us after her PET scan Patient to continue her diabetic medication Patient to have PET scan September 17 Patient to call if questions or concerns [facility] Phone: [phone]) 760-999801-10-2024 History of Present illness Narrative* Keven Priest MD - 08/26/2023 11:15 AM EST Images from the original note were not included. Keven Marcus MD [facility] Hematology/Oncology - [facility] [address] [facility] [address] [facility] [address] Dept: [phone] Dept PROBLEM LIST: 1.Weight loss 2. Stage I LEFT sided (pT1b pN0) Triple negative breast cancer: -05/19/2011 LEFT mastectomy showed 0.6cm poorly differentiated carcinoma. LN evaluation was negativefor disease. -s/p TC x 4 until 11/2011 3. RIGHT sided breast cancer: S/p RIGHT sided mastectomy w/ axillary LN dissection 07/08/1994 followed by adjuvant chemo, followed by 5 yrs of tamoxifen. Treated by Dr. iLsa Llamas -s/p R breast reconstruction 1993 4. BRCA1 mutation positive: S/p bilateral mastectomy and TAHBSO ASSESSMENT AND PLAN: Rolando Peters is a 78 y.o. female here for 1. History of bilateral breast cancer -12/15/2022 CT / bone scan= no overt evidence of malignancy. However with the lung nodules required follow up -04/17/2023 CT chest = mostly stable outside of 2 new sub-CM nodules. -08/24/23 CT chest = Interval development of new right lung nodule with enlargement of other previously noted nodules Recommendations to proceed with PET scan -Follow-up after PET scan is complete On this date, 08/26/23 , I have spent 30 minutes preparing to see the patient, reviewing previous notes and test results, completing clinical documentation as well as with [id number] patient care, performing a medically appropriate examination, counseling / educating the patient/family/caregiver,and ordering medications, tests, or procedures. HPI: Rolando Peters is a 78 y.o. female who presents here today with breast cancer She has lower back pain for some years now (she recalls MRI 4-5 yrs ago). Her pain is worse w/ walking (buttocks). She feels this is slowly worsening over years. She has MRI scheduled Past Medical History: Diagnosis Date Arthritis Asthma Breast cancer (HCC) 1993 Right Breast(Mastectomy) Breast cancer (HCC) 2010 Left Breast(Simple Mastectomy, SLND) Chronic kidney disease Diabetes (HCC) GERD (gastroesophageal reflux disease) High blood pressure Occlusion and stenosis of unspecified carotid artery Pure hypercholesterolemia Syncope and collapse 08/29/2022 Past Surgical History: Procedure Laterality Date CAROTID ENDARTERECTOMY Right 2009 CATARACT EXTRACTION 2006 MASTECTOMY Left 2010 simple/reconstruction/gingivagrapht MASTECTOMY Right 1993 reconstruction (TRAM) TOTAL ABDOMINAL HYSTERECTOMY W/ BILATERAL SALPINGOOPHORECTOMY 1998 TUBAL LIGATION 1978 Current Outpatient Medications on File Prior to Visit Medication Sig Dispense Refill albuterol 108 (90 Base) MCG/ACT inhaler albuterol sulfate HFA 90 mcg/actuation aerosol inhaler amLODIPine (Norvasc) 10 MG tablet amlodipine 10 mg tablet 90 tablet 1 aspirin 81 MG chewable tablet daily. cholecalciferol (Vitamin D-3) 50 MCG (1999 UT) tablet Take 4,000 Units by mouth daily. citalopram (CeleXA) 20 MG tablet Take 20 mg by mouth daily. ezetimibe (Zetia) 10 MG tablet Take 1 tablet (10 mg) by mouth in the morning. 90 tablet 1 Finerenone (Kerendia) 10 MG tablet Take 1 tablet by mouth daily. Jentadueto XR 2.5-1000 MG per 24 hr tablet take 2 tablets by mouth once daily lansoprazole (Prevacid) [address] capsule 1 capsule in the morning. losartan (Cozaar) 100 MG tablet losartan 100 mg tablet metoprolol tartrate (Lopressor) 25 MG tablet metoprolol tartrate 25 mg tablet rosuvastatin (Crestor) 10 MG tablet daily. Vascepa 1 g capsule TAKE 2 CAPSULES BY MOUTH 2 TIMES DAILY 360 capsule 3 No current facility-administered medications on file prior to visit. 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 Substance and Sexual Activity Alcohol use: Yes Alcohol/week: 0.0 - 14.0 standard drinks of alcohol Comment: occ Drug use: No Sexual activity: Not on file Other Topics Concern Not on file Social History Narrative Not on file Social Determinants of Health Financial Resource Strain: Not on file Food Insecurity: Not on file Transportation Needs: Not on file Physical Activity: Not on file Stress: Not on file Social Connections: Not on file Intimate Partner Violence: Not on file Housing Stability: Not on file Family History Problem Relation Name Age of Onset Ovarian cancer Mother 66 Heart attack Father Baljeet 76 High Blood Pressure Father Baljeet Macular degeneration Father Baljeet Ovarian cancer Mother's Sister 45 Other ([id number]) Son neuofibromatosis, BRCA1 positive Neurofibromatosis Son High Blood Pressure Son Cancer Son hairy cell leukemia Breast cancer Cousin 42 +brca Bladder Cancer Cousin 19 Allergies Allergen Reactions Isosulfan Blue Anaphylaxis Methylene Blue Sulfa Antibiotics Rash Reviewed medications, allergies, past medical history, social history, family history as above. PHYSICAL EXAM: There were no vitals taken for this visit.BP (!) 189/74 Pulse 87 Temp 36.3 C (97.3 F) (Temporal) Ht 1.702 m (5' 7) Wt 66.4 kg (146 lb 4.8 oz) SpO2 94% BMI 22.91 kg/m CONSTITUTIONAL: see VS. No apparent distress. SKIN: No rashes PYSCH: AAOx3. Mood and affect appropriate, patient interactive Labs Most recent labs reviewed Lab Results Component Value Date CO2 24 12/03/2022 BUN 20 12/03/2022 CREATININE 0.83 12/03/2022 GLUCOSE 130 (H) 12/03/2022 CALCIUM 8.7 12/03/2022 PROT 6.5 12/03/2022 BILITOT 0.6 12/03/2022 ALKPHOS 45 12/03/2022 AST 14 12/03/2022 ALT 12 12/03/2022 Lab Results Component Value Date WBC 6.9 12/03/2022 HGB 12.8 12/03/2022 HCT 38.2 12/03/2022 MCV 89.9 12/03/2022 PLT 244 12/03/2022 RBC 4.25 12/03/2022 MCH 30.1 12/03/2022 MCHC 33.5 12/03/2022 RDW 12.7 12/03/2022 August 30, 2022 labs: CBC: 8.9/13.5/41.4/254 Creatinine 0.87 Alk phos 46 Total bilirubin 0.7 Urine protein electrophoresis = positive marked proteinuria Serum protein electrophoresis = normal October 16, 2022 labs: CBC: 6.3/13.4/21.7/269 MCV 94 No differential Radiology reviewed: 08/29/2022 CXR = IMPRESSION: 1. No evidence of acute cardiopulmonary process. 11/04/2022 CXR = FINDINGS: The lungs are hyperinflated. There is no focal lung consolidation or effusion. There is no edema. The cardiac silhouette is within normal limits for size. 11/14/2022 shoulder xray Mild AC degenerative changes. Dystrophic calcifications in the distal rotator cuff tendons ----12/15/2022 CT = COMPARISON: CT chest dated 06/16/2012 CHEST: No focal consolidation is seen within the lungs. There is no pleural effusion or pneumothorax. Mildemphysematous changes are noted within the lungs. There is a subpleural nodule at the left costophrenic sulcus measuring [address] image 283 of 376, unchanged when compared to the CT from 06/16/2012. 3 mm subpleural nodule within the left lower lobe in image 257 is unchanged. A 3 mm subpleural nodule within the right lower lobe in image 293is unchanged. There is a 4 mm nodule within the right lung base in image 277, new when compared to the prior study. A small area of streaky, irregular parenchymal density within the lateral aspect ofthe right lung near the confluence of the right major and minor fissures laterally appears stable when compared to the prior examination. There is a small cluster of reticulonodular densities within the lateral aspect of the right middle lobe, not present on the prior study. There is no hilar, mediastinal, or axillary lymphadenopathy. Postoperative changes consistent with right mastectomy are noted. There is a left breast implant. The heart size is within normal limits. There is no pericardial effusion. Fairly extensive coronary artery calcification is noted. The thoracic aorta appears normal in caliber. No lytic or blastic lesions are seen on the bone windows. IMPRESSION: No lymphadenopathy is identified within the chest. Several small noncalcified nodules within the lungs bilaterally are noted, as described above. Mostof these appear stable when compared to the study from 06/16/2012, however there is a new 4 mm nodule within the right lung base which is nonspecific. A small cluster of reticulonodular densities within the lateral aspect of the right middle lobe is also a new, and is favored to be inflammatory or infectious. Given the patient's history of breast cancer, routine CT follow- up is recommended to ensure stability. Mild emphysematous changes. ABDOMEN AND PELVIS: The liver, gallbladder, spleen, pancreas, adrenal glands and kidneys appear within normal limits. The abdominal aorta is normal in caliber. Scattered vascular calcification is noted. There is no retroperitoneal, pelvic, or inguinal lymphadenopathy. The urinary bladder appears grossly normal. The uterus has been removed. The large and small bowel appears within normal limits without evidence of wall thickening or dilatation. There is no free fluid within the abdomen or pelvis. There is no free air under the diaphragm. No lytic or blastic lesions are seen on the bone windows. IMPRESSION: No lymphadenopathy or suspicious mass is identified within the abdomen or pelvis. ---12/15/2022 bone scan= BONE SCINTIGRAPHY (WHOLE BODY) CLINICAL INDICATION: Weight loss, shoulder pain, history of breast cancer Delayed whole body imaging was performed in the standard anterior and posterior projections following the intravenous administration of 22.1 mCi of technetium- 99m MDP. Additional spot views of the skull, pelvis, and ribs were also obtained. COMPARISON: CT chest abdomen and pelvis performed the same day FINDINGS: No evidence of osseous metastatic disease is identified. There is mild to moderate increased traceruptake within the cervical spine and right shoulder, likely degenerative etiology. More mild increased tracer uptake is noted within the left shoulder, thoracic and lumbar spine, wrists, hips, ankles, and feet. IMPRESSION: No evidence of osseous metastatic disease. Likely degenerative changes of the spine and joints as above. -04/17/2023 CT chest = CONTRAST: No IV contrast. COMPARISON: 12/15/2022 CT CHEST FINDINGS: Lungs: Mild centrilobular emphysematous changes noted. Right middle lobe lateral reticular nodular densities are unchanged. Nodules: Right middle lobe, 3 mm nodule, unchanged (image 245:5) Right lower lobe nodules, 4 mm and 5 mm, new (images 249 and 256:5). Right lower lobe, 4 mm nodule, unchanged since 12/15/2022 (image 265:5). Right lower lobe, 3 mm subpleural nodule laterally, unchanged (image 276:5). Left lower lobe, 5 mm nodule at costophrenic sulcus, unchanged (image 270:5). Left lower lobe, 3 mm subpleural nodule laterally, unchanged (image 244:5). Mediastinum and Jody: There is no lymphadenopathy. Central airway: The central airway is patent. Tracheobronchial tree calcifications are present. Thyroid and Esophagus: The thyroid gland contour is normal. The esophagus is not well-distended. A small sliding-type hiatal hernia is present. Heart and Great Vessels: Atherosclerotic calcifications of the aorta and coronary arteries are noted. Mitral annulus calcifications are present. The cardiac silhouette is not enlarged. There is no sizable pericardial effusion. Osseous structures: There is no suspicious blastic or lytic lesion. Multilevel endplate degenerative changes are present. Axilla and Soft tissue: There is no axillary adenopathy. Left breast mastectomy with implant reconstruction. Upper abdomen: The adrenal glands are within normal limits. IMPRESSION: 1. Bilateral small pulmonary nodules. Most of the nodules are stable compared to prior exams however there are two new right lower lobe pulmonary nodules measuring 4 mm and 5 mm. 2. Stable reticular nodular densities within the right middle lobe laterally. 3. Mild centrilobular emphysema. 2017 - UPDATED FLEISCHNER SOCIETY GUIDELINES FOR MANAGEMENT OF SMALL PULMONARY NODULES DETECTED ON CT Note: Recommendations do not apply for lung cancer screening, patients with immunosuppression or with known cancer. Dimensions are average of long and short axis rounded to the millimeter MULTIPLE NODULES: LOW RISK PATIENT (Use most suspicious nodule to manage guidelines) All <6mm - No follow up Any >6mm - 3-6 months, then consider 18-24 months MULTIPLE NODULES: HIGH RISK PATIENT (Use most suspicious nodule to manage guidelines) All <6mm - No follow up Any >6mm - 3-6 months, then 18-24 months -----08/24/23 CT chest = COMPARISON: 04/17/2023 FINDINGS: Airway: Tracheobronchial tree remains patent. Lungs: Moderate centrilobular and paraseptal emphysematous changes are noted. Interval development of apical left lower lung lobe consolidation (series 3 axial image 39 and 118), with other new scattered opacities seen in the interval as annotated in PACS. In the lateral peripheral right middle lung lobe, new pleural nodule is noted measuring 1.4 x 0.9 cm in axial dimension (series 3 axial image 204). In the lateral inferior right middle lung lobe, stable 3 mm nodule noted (series 3 axial image 244). In the right lower lung lobe, interval enlargement of nodule is noted measuring 8 mm (previously measuring 4 mm, series 3 axial image 246). Adjacent nodule noted measuring 7 mm (previously measuring 5 mm, series 3 axial image 255). Stable posterior lateral right lower lung lobe 3 mm nodule (series 3 axial image 272). Basilar lateral left lower lung lobe, stable costophrenic sulcus nodule measuring 5 mm (series 3 axial image 272). In the lateral left lower lung lobe, stable 3 mm nodule noted (series 3 axial image 248). Pleura: No pleural thickening or effusion. Heart/Great vessels: Normal heart size with no pericardial effusion. There is significant coronary artery calcification.Atherosclerotic calcifications are noted in the thoracic aorta and branch vasculature. The pulmonary arteries normal in caliber. Mediastinum/Jody: No enlared mediastinal, hilar, or axillary lymph nodes. Thyroid: Thyroid is normal in appearance. Esophagus: Esophagus is unremarkable. Visualized Upper Abdomen: The visualized upper abdomen is unremarkable. Chest wall: Postsurgical changes are noted in the breasts, with breast prosthesis noted on the left. Bones: No suspicious osseous lesions. Mild degenerative changes of the thoracic spine are observed. IMPRESSION: Interval development of scattered focal consolidations in the lungs, particularly in the apical left lung lobes as discussed. Recommended short-term follow-up imaging to document resolution. Interval development of new lateral right middle lung lobe nodule with interval enlargement of other previously noted nodules as discussed. Further clinical attention and workup is warranted. Moderate pulmonary emphysema. Coronary and aortic atherosclerosis. Other chronic findings as discussed. For these nodule characteristics, Fleischner society recommends consideration of CT follow-up at 3 months versus PET/CT or biopsy if lesion larger than 1 cm. Report Dictated on Electronically Signed By: Keyon Morales MD . . 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 documented in this [facility]10-27-2023 History of Present illness Narrative* Celia Al, - 06/12/2023 3:00 PM EDT Subjective Patient ID: Rolando Peters is a 78 y.o. female who presents for Right sciatic nerve pain. . HPI Reports that she has had difficulties with some right sciatic nerve pain. She reports that is shooting down the back of her right leg. Denies any fever chills denies any nausea vomit diarrhea constipation denies any chest pain shortness of breath syncopal episodes or palpitations. She denies any stool or urine incontinence episodes she denies any pain that has woken her up from sleep. Review of Systems Constitutional: Negative for activity change, appetite change, fatigue and fever. HENT: Negative for congestion. Respiratory: Negative for cough, choking and chest tightness. Cardiovascular: Negative for chest pain, palpitations and leg swelling. Musculoskeletal: Positive for arthralgias and back pain. Negative for gait problem. Skin: Negative for color change and pallor. Neurological: Negative for dizziness, facial asymmetry, light-headedness and headaches. Objective BP 136/58 (BP Location: Left arm) Pulse 77 Wt 68.3 kg (150 lb 9.6 oz) BMI 23.59 kg/m BSA Body surface area is 1.8 meters squared. Physical Exam Constitutional: General: She is not in acute distress. Appearance: Normal appearance. She is not toxic-appearing. HENT: Head: Normocephalic. Right Ear: Tympanic membrane, ear canal and external ear normal. Left Ear: Tympanic membrane, ear canal and external ear normal. Mouth/Throat: Pharynx: Oropharynx is clear. Eyes: Conjunctiva/sclera: Conjunctivae normal. Pupils: Pupils are equal, round, and reactive to light. Cardiovascular: Rate and Rhythm: Normal rate and regular rhythm. Pulses: Normal pulses. Heart sounds: Normal heart sounds. Pulmonary: Effort: No respiratory distress. Breath sounds: No wheezing, rhonchi or rales. Musculoskeletal: General: No swelling or tenderness. Skin: Findings: No lesion or rash. Neurological: General: No focal deficit present. Mental Status: She is alert and oriented to person, place, and time. Mental status is at baseline. Gait: Gait normal. Psychiatric: Mood and Affect: Mood normal. Behavior: Behavior normal. Thought Content: Thought content normal. Judgment: Judgment normal. Orders Only on 02/18/2023 Component Date Value Ref Range Status Glucose 02/18/2023 94 74 - 99 mg/dL Final Sodium 02/18/2023 137 136 - 145 mmol/L Final Potassium 02/18/2023 4.6 3.5 - 5.3 mmol/L Final Chloride 02/18/2023 102 98 - 107 mmol/L Final Bicarbonate 02/18/2023 23 21 - 32 mmol/L Final Anion Gap 02/18/2023 17 10 - 20 mmol/L Final Urea Nitrogen 02/18/2023 17 6 - 23 mg/dL Final Creatinine 02/18/2023 0.77 0.50 - 1.05 mg/dL Final GFR Female 02/18/2023 79 >90 mL/min/1.73m2 Final Comment: CALCULATIONS OF ESTIMATED GFR ARE PERFORMED USING THE 2020 CKD-EPI STUDY REFIT EQUATION WITHOUT THE RACE VARIABLE FOR THE IDMS-TRACEABLE CREATININE METHODS. https://jasn.asnjournals.org/content/early/ASN.9485904109 Calcium 02/18/2023 9.5 8.6 - 10.6 mg/dL Final Phosphorus 02/18/2023 4.4 2.5 - 4.9 mg/dL Final Comment: The performance characteristics of phosphorus testing in heparinized plasma have been validated by the individual laboratory site where testing is performed. Testing on heparinized plasma is not approved by the FDA; however, such approval is not necessary. Albumin 02/18/2023 4.2 3.4 - 5.0 g/dL Final Protein, Ur 02/18/2023 197 (H) 5 - 24 mg/dL Final Creatinine, Urine 02/18/2023 49.4 20.0 - 320.0 mg/dL Final Prot/Creat, Ur 02/18/2023 3.99 (H) 0.00 - 0.17 mg/mg Creat Final Orders Only on 10/16/2022 Component Date Value Ref Range Status TSH 10/16/2022 1.24 0.44 - 3.98 mIU/L Final Comment: TSH testing is performed using different testing methodology at [facility] than at other [facility]. Direct result comparisons should only be made within the same method. Orders Only on 10/16/2022 Component Date Value Ref Range Status Cholesterol 10/16/2022 133 0 - 199 mg/dL Final Comment: . AGE DESIRABLE BORDERLINE HIGH HIGH 0-19 Y 0 - 169 170 - 199 >/= 200 20-24 Y 0 - 189 190 - 224 >/= 225 >24 Y 0 - 199 200 - 239 >/= 240 All ranges are based on fasting samples. Specific therapeutic targets will vary based on patient-specific cardiac risk. . Pediatric guidelines reference:Pediatrics 2011, 128(S5). Adult guidelines reference: NCEP ATPIII Guidelines, SARAH 2001, 258:2486-97 . Venipuncture immediately after or during the administration of Metamizole may lead to falsely low results. Testing should be performed immediately prior to Metamizole dosing. HDL 10/16/2022 52.7 mg/dL Final Comment: . AGE VERY LOW LOW NORMAL HIGH 0-19 Y < 35 < 40 40-45 ---- 20-24 Y ---- < 40 >45 ---- >24 Y ---- < 40 40-60 >60 . Cholesterol/HDL Ratio 10/16/2022 2.5 Final Comment: REF VALUES DESIRABLE < 3.4 HIGH RISK > 5.0 LDL 10/16/2022 45 0 - 99 mg/dL Final Comment: . NEAR BORD AGE DESIRABLE OPTIMAL HIGH HIGH VERY HIGH 0-19 Y 0 - 109 --- 110-129 >/= 130 ---- 20-24 Y 0 - 119 --- 120-159 >/= 160 ---- >24 Y 0 - 99 100-129 130-159 160-189 >/=190 . VLDL 10/16/2022 36 0 - 40 mg/dL Final Triglycerides 10/16/2022 179 (H) 0 - 149 mg/dL Final Comment: . AGE DESIRABLE BORDERLINE HIGH HIGH VERY HIGH 0 D-90 D 19 - 174 ---- ---- ---- 91 D- 9 Y 0 - 74 75 - 99 >/= 100 ---- 10-19 Y 0 - 89 90 - 129 >/= 130 ---- 20-24 Y 0 - 114 115 - 149 >/= 150 ---- >24 Y 0 - 149 150 - 199 200- 499 >/= 500 . Venipuncture immediately after or during the administration of Metamizole may lead to falsely low results. Testing should be performed immediately prior to Metamizole dosing. Orders Only on 10/16/2022 Component Date Value Ref Range Status Glucose 10/16/2022 125 (H) 74 - 99 mg/dL Final Sodium 10/16/2022 138 136 - 145 mmol/L Final Potassium 10/16/2022 4.8 3.5 - 5.3 mmol/L Final Chloride 10/16/2022 101 98 - 107 mmol/L Final Bicarbonate 10/16/2022 28 21 - 32 mmol/L Final Anion Gap 10/16/2022 14 10 - 20 mmol/L Final Urea Nitrogen 10/16/2022 15 6 - 23 mg/dL Final Creatinine 10/16/2022 0.73 0.50 - 1.05 mg/dL Final GFR Female 10/16/2022 85 >90 mL/min/1.73m2 Final Comment: CALCULATIONS OF ESTIMATED GFR ARE PERFORMED USING THE 2020 CKD-EPI STUDY REFIT EQUATION WITHOUT THE RACE VARIABLE FOR THE IDMS-TRACEABLE CREATININE METHODS. https://jasn.asnjournals.org/content//ASN.7703524379 Calcium 10/16/2022 9.7 8.6 - 10.6 mg/dL Final Albumin 10/16/2022 4.2 3.4 - 5.0 g/dL Final Alkaline Phosphatase 10/16/2022 42 33 - 136 U/L Final Total Protein 10/16/2022 6.6 6.4 - 8.2 g/dL Final AST 10/16/2022 13 9 - 39 U/L Final Total Bilirubin 10/16/2022 0.7 0.0 - 1.2 mg/dL Final ALT (SGPT) 10/16/2022 13 7 - 45 U/L Final Comment: Patients treated with Sulfasalazine may generate falsely decreased results for ALT. Orders Only on 10/16/2022 Component Date Value Ref Range Status Phosphorus 10/16/2022 3.8 2.5 - 4.9 mg/dL Final Comment: The performance characteristics of phosphorus testing in heparinized plasma have been validated by the individual laboratory site where testing is performed. Testing on heparinized plasma is not approved by the FDA; however, such approval is not necessary. Orders Only on 10/16/2022 Component Date Value Ref Range Status Vitamin B-12 10/16/2022 236 211 - 911 pg/mL Final Orders Only on 10/16/2022 Component Date Value Ref Range Status Vitamin D, 25-Hydroxy 10/16/2022 53 ng/mL Final Comment: . DEFICIENCY: < 20 NG/ML INSUFFICIENCY: 20-29 NG/ML SUFFICIENCY: 30-100 NG/ML THIS ASSAY ACCURATELY QUANTIFIES THE SUM OF VITAMIN D3, 25-HYDROXY AND VIT D2,25-HYDROXY. Orders Only on 10/16/2022 Component Date Value Ref Range Status Uric Acid 10/16/2022 5.8 2.3 - 6.7 mg/dL Final Comment: Venipuncture immediately after or during the administration of Metamizole may lead to falsely low results. Testing should be performed immediately prior to Metamizole dosing. Orders Only on 10/16/2022 Component Date Value Ref Range Status Protein, Ur 10/16/2022 551 (H) 5 - 24 mg/dL Final Creatinine, Urine 10/16/2022 151.0 20.0 - 320.0 mg/dL Final Prot/Creat, Ur 10/16/2022 3.65 (H) 0.00 - 0.17 mg/mg Creat Final Orders Only on 10/16/2022 Component Date Value Ref Range Status PTH 10/16/2022 63.4 18.5 - 88.0 pg/mL Final There may be more visits with results that are not included. Current Outpatient Medications on File Prior to Visit Medication Sig Dispense Refill albuterol 90 mcg/actuation inhaler Inhale 2 puffs every 4 hours if needed. amLODIPine (Norvasc) 10 mg tablet Take 1 tablet (10 mg) by mouth once daily. aspirin 81 mg EC tablet Take 1 tablet (81 mg) by mouth once daily. cholecalciferol (Vitamin D-3) 50 MCG (2000 UT) tablet Take 2 tablets (4,000 Units) by mouth once daily. citalopram (CeleXA) 20 mg tablet Take 1 tablet (20 mg) by mouth once daily. 90 tablet 3 clindamycin (Cleocin T) 1 % lotion twice a day. Apply sparingly and massage in colchicine 0.6 mg tablet 1 tablet Orally ezetimibe (Zetia) 10 mg tablet Take 1 tablet (10 mg) by mouth once daily. fluocinonide (Lidex) 0.05 % external solution 1 (one) time each day. Apply to affected areas icosapent ethyL (Vascepa) 1 gram capsule Take 2 capsules (2 g) by mouth twice a day. Kerendia 10 mg tablet tablet Take 1 tablet (10 mg) by mouth once daily. lansoprazole (Prevacid) [address] capsule Take 1 capsule (30 mg) by mouth once daily. 90 capsule 3 linagliptin-metformin (Jentadueto XR) 2.5-1,000 mg tablet, IR - ER, biphasic 24hr Take 2 tablets bymouth once daily. 180 tablet 3 losartan (Cozaar) 100 mg tablet Take 1 tablet (100 mg) by mouth once daily. 90 tablet 3 metoprolol tartrate (Lopressor) 25 mg tablet Take 1 tablet (25 mg) by mouth in the morning and 1 tablet (25 mg) before bedtime. 180 tablet 3 rosuvastatin (Crestor) 10 mg tablet Take 1 tablet (10 mg) by mouth once daily. 90 tablet 3 No current facility-administered medications on file prior to visit. No images are attached to the encounter. Assessment/Plan Diagnoses and all orders for this visit: Sciatica of right side - cyclobenzaprine (Flexeril) 5 mg tablet; Take 1 tablet (5 mg) by mouth as needed at bedtime for muscle spasms. - predniSONE (Deltasone) 5 mg tablet; 10 then 9 then 8 then 7 etc. until gone Acute non-recurrent frontal sinusitis - amoxicillin (Amoxil) 875 mg tablet; Take 1 tablet (875 mg) by mouth 2 times a day for 10 days. 1. Patient to start on antibiotics 2. Patient to start on Flexeril at bedtime hold prednisone unless patient is feeling really badly with shooting pain down her leg 3. Patient to call if worsening symptoms documented in this [facility] Work Phone: [phone]) 913-629809-21-2023 Evaluation + Plan note* Assessment & Plan Note - Rashi Jerome MD - 05/07/2023 4:46 PM EDTAssociated Problem(s): Dyslipidemia Target LDL <70. LDL at target - Cont zetia - Cont crestor 20 mg daily; check lipids yearly - Cont Vascepa. -Cont lifestyle mgt given elev TG; if much higher over time, consider Tricor [facility] [id number] Miscellaneous Notes* Assessment & Plan Note - Rashi Jerome MD - 05/07/2023 4:46 PM EDTAssociated Problem(s): Dyslipidemia Target LDL <70. LDL at target - Cont zetia - Cont crestor 20 mg daily; check lipids yearly - Cont Vascepa. 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 Diabetic related disease. -Continue diabetic management -Continue losartan and Finerenone which is managed by Dr. Livingston -Consider SGLT2i given ASCVD+DM2+CKD. Will defer to Renal and Endocrine. * Assessment & Plan Note - Rashi Jerome MD - 05/07/2023 4:26 PM EDT Associated Problem(s): Bilateral carotid artery stenosis Moderate. Coronary risk equivalent. No symptoms. She has a history of right carotid endarterectomy. -Carotid US 04/2024 -Given ASCVD and DM2 consider add SGLT2i (will hold off for now as the diuretic effect may worsen her syncopal symptoms) * Assessment & Plan Note - Rashi Jerome MD - 05/07/2023 3:55 PM EDT Associated Problem(s): Essential hypertension Stable BP. No Sxs. Hx supine hypertension with orthostasis. -Continue Lopressor, losartan, Norvasc. Newly added Kerendia. 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 Diabetic related disease. -Continue diabetic management -Continue losartan and Finerenone which is managed by Dr. Livingston -Consider SGLT2i given ASCVD+DM2+CKD. Will defer to Renal and Endocrine. [facility] [id number] Evaluation + Plan note* Assessment & Plan Note - Rashi Jerome MD - 05/07/2023 4:26 PM EDTAssociated Problem(s): Bilateral carotid artery stenosis Moderate. Coronary risk equivalent. No symptoms. She has a history of right carotid endarterectomy. -Carotid US 04/2024 -Given ASCVD and DM2 consider add SGLT2i (will hold off for now as the diuretic effect may worsen her syncopal symptoms) [facility] [id number] Evaluation + Plan note* Assessment & Plan Note - Rashi Jerome MD - 05/07/2023 3:55 PM EDTAssociated Problem(s): Essential hypertension Stable BP. No Sxs. Hx supine hypertension with orthostasis. -Continue Lopressor, losartan, Norvasc. Newly added Kerendia. -Remain off hydrochlorothiazide -May need to allow higher BP to avoid hypotension [facility] [id number] History of Present illness Narrative* Rashi Jerome MD - 05/07/2023 3:00 PM EDT Images from the original note were not included. [facility] [address] [place] [address] [address] [facility] [address] Dept: [phone] Dept Visit type: Established : 1945 Reason for Visit: 6 Month Follow-up Assessment and Plan 1. Bilateral carotid artery stenosis Assessment & Plan: Moderate. Coronary risk equivalent. No symptoms. She has a history of right carotid endarterectomy. -Carotid US 04/2024 -Given ASCVD and DM2 consider add SGLT2i (will hold off for now as the diuretic effect may worsen her syncopal symptoms) Orders: - Vascular US carotid artery duplex bilateral 2. Essential hypertension Assessment & Plan: Stable BP. No Sxs. Hx supine hypertension with orthostasis. -Continue Lopressor, losartan, Norvasc. Newly added Kerendia. -Remain off hydrochlorothiazide -May need to allow higher BP to avoid hypotension Orders: - ECG 12 lead 3. Dyslipidemia Assessment & Plan: Target LDL <70. LDL at target - Cont zetia - Cont crestor 20 mg daily; check lipids yearly - Cont Vascepa. -Cont lifestyle mgt given elev TG; if much higher over time, consider Tricor 4. 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 Diabetic related disease. -Continue diabetic management -Continue losartan and Finerenone which is managed by Dr. Livingston -Consider SGLT2i given ASCVD+DM2+CKD. Will defer to Renal and Endocrine. Follow up in about 1 year (around 05/07/2024) for me. Subjective No recurrent syncope. Rare dizziness. Improved since off hydrochlorothiazide. Kerendia added recently by Renal for G2/A3 diabetic disease. Ongoing evaluation of lung nodules. No cardiac complaints. Rolando Peters Review of Systems Constitutional: Positive for diaphoresis. Negative for activity change, chills, fatigue and fever. HENT: Negative for nosebleeds and trouble swallowing. Eyes: Negative for discharge and visual disturbance. Respiratory: Positive for apnea, cough, shortness of breath (exertional) and wheezing. Negative forchest tightness. Cardiovascular: Positive for palpitations (fluttering). Negative for chest pain and leg swelling. Gastrointestinal: Negative for abdominal distention, abdominal pain, blood in stool, diarrhea, nausea and vomiting. Endocrine: Negative for cold intolerance and heat intolerance. Genitourinary: Negative for hematuria. Musculoskeletal: Positive for arthralgias, gait problem (occasional unsteadiness) and myalgias. Skin: Negative for color change and rash. Neurological: Positive for numbness (right hand, occasional). Negative for dizziness, seizures, syncope, facial asymmetry, speech difficulty, weakness, light-headedness and headaches. Hematological: Does not bruise/bleed easily. Psychiatric/Behavioral: Positive for dysphoric mood. Allergies Allergen Reactions Isosulfan Blue Anaphylaxis Methylene Blue Sulfa Antibiotics Rash Outpatient Medications Prior to Visit Medication Sig Dispense Refill albuterol 108 (90 Base) MCG/ACT inhaler albuterol sulfate HFA 90 mcg/actuation aerosol inhaler amLODIPine (Norvasc) 10 MG tablet amlodipine 10 mg tablet 90 tablet 1 aspirin 81 MG chewable tablet daily. cholecalciferol (Vitamin D-3) 50 MCG (1999 UT) tablet Take 4,000 Units by mouth daily. citalopram (CeleXA) 20 MG tablet Take 20 mg by mouth daily. ezetimibe (Zetia) 10 MG tablet Take 1 tablet (10 mg) by mouth in the morning. 90 tablet 1 Finerenone (Kerendia) 10 MG tablet Take 1 tablet by mouth daily. Jentadueto XR 2.5-1000 MG per 24 hr tablet take 2 tablets by mouth once daily lansoprazole (Prevacid) [address] capsule 1 capsule in the morning. losartan (Cozaar) 100 MG tablet losartan 100 mg tablet metoprolol tartrate (Lopressor) 25 MG tablet metoprolol tartrate 25 mg tablet rosuvastatin (Crestor) 10 MG tablet daily. Vascepa 1 g capsule TAKE 2 CAPSULES BY MOUTH 2 TIMES DAILY 360 capsule 3 No facility-administered medications prior to visit. 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 Substance Use Topics Alcohol use: Yes Alcohol/week: 0.0 - 14.0 standard drinks of alcohol Comment: occ Past Surgical History: Procedure Laterality Date CAROTID ENDARTERECTOMY Right 2009 CATARACT EXTRACTION 2006 MASTECTOMY Left 2010 simple/reconstruction/gingivagrapht MASTECTOMY Right 1993 reconstruction (TRAM) TOTAL ABDOMINAL HYSTERECTOMY W/ BILATERAL SALPINGOOPHORECTOMY 1998 TUBAL LIGATION 1979 Family History Problem Relation Name Age of Onset Ovarian cancer Mother 66 Heart attack Father Baljeet 76 High Blood Pressure Father Baljeet Macular degeneration Father Baljeet Ovarian cancer Mother's Sister 45 Other ([id number]) Son neuofibromatosis, BRCA1 positive Neurofibromatosis Son High Blood Pressure Son Cancer Son hairy cell leukemia Breast cancer Cousin 42 +brca Bladder Cancer Cousin 19 Objective Vitals: 05/07/23 1511 BP: 130/60 BP Location: Left arm Patient Position: Sitting BP Cuff Size: Adult Pulse: 72 Resp: 16 Weight: 154 lb 14.4 oz (70.3 kg) Height: 5' 7 (1.702 m) Physical Exam Vitals reviewed. Constitutional: General: She is not in acute distress. Appearance: She is well-developed. Neck: Vascular: No JVD. Cardiovascular: Rate and Rhythm: Normal rate and regular rhythm. Heart sounds: Normal heart sounds. No murmur heard. Pulmonary: Effort: Pulmonary effort is normal. Breath sounds: Normal breath sounds. Abdominal: General: Bowel sounds are normal. Palpations: Abdomen is soft. Neurological: Mental Status: She is alert. Psychiatric: Attention and Perception: Attention normal. Behavior: Behavior is cooperative. Data Reviewed and Summarized EF BP Date Value Ref Range Status 09/18/2022 70 55 - 100 % Final Review of tests/labs done/ordered within my specialty: EKG in office: 05/07/23 ECG 12-LEAD 05/07/2023 3:46 PM (Final) Narrative Sinus Rhythm WITHIN NORMAL LIMITS Signed by: Rashi Jerome MD on 05/07/2023 3:46 PM Review of tests/labs done/ordered outside my specialty: Independent interpretation of tests: Rashi Jerome MD documented in this [facility]09-06-2023 History of Present illness Narrative* Keven Priest MD - 04/22/2023 11:00 AM EDT Images from the original note were not included. Keven Marcus MD [facility] Hematology/Oncology - [facility] [address] [facility] [address] [facility] [address] Dept: [phone] Dept PROBLEM LIST: 1.Weight loss 2. Stage I LEFT sided (pT1b pN0) Triple negative breast cancer: -05/19/2011 LEFT mastectomy showed 0.6cm poorly differentiated carcinoma. LN evaluation was negativefor disease. -s/p TC x 4 until 11/2011 3. RIGHT sided breast cancer: S/p RIGHT sided mastectomy w/ axillary LN dissection 07/08/1994 followed by adjuvant chemo, followed by 5 yrs of tamoxifen. Treated by Dr. Lisa Rehmus -s/p R breast reconstruction 1994 4. BRCA1 mutation positive: S/p bilateral mastectomy and TAHBSO ASSESSMENT AND PLAN: Rolando Peters is a 78 y.o. female here for 1. History of bilateral breast cancer -12/15/2022 CT / bone scan= no overt evidence of malignancy. However with the lung nodules required follow up -04/17/2023 CT chest = mostly stable outside of 2 new sub-CM nodules. Repeat CT chest in about 3-4 months. -f/u after repeat CT HPI: Rolando Peters is a 78 y.o. female who presents here today with breast cancer She is here today w/ . She has stable cough. She has been rather stable over the last 6months. Appetite is ok. She had C scope via [facility] (Dr Lindsay) Past Medical History: Diagnosis Date Arthritis Asthma Breast cancer (HCC) 1993 Right Breast(Mastectomy) Breast cancer (HCC) 2010 Left Breast(Simple Mastectomy, SLND) Chronic kidney disease Diabetes (HCC) GERD (gastroesophageal reflux disease) High blood pressure Occlusion and stenosis of unspecified carotid artery Pure hypercholesterolemia Past Surgical History: Procedure Laterality Date CAROTID ENDARTERECTOMY Right 2009 CATARACT EXTRACTION 2006 MASTECTOMY Left 2010 simple/reconstruction/gingivagrapht MASTECTOMY Right 1993 reconstruction (TRAM) TOTAL ABDOMINAL HYSTERECTOMY W/ BILATERAL SALPINGOOPHORECTOMY 1998 TUBAL LIGATION 1979 Current Outpatient Medications on File Prior to Visit Medication Sig Dispense Refill albuterol 108 (90 Base) MCG/ACT inhaler albuterol sulfate HFA 90 mcg/actuation aerosol inhaler amLODIPine (Norvasc) 10 MG tablet amlodipine 10 mg tablet 90 tablet 1 aspirin 81 MG chewable tablet daily. cholecalciferol (Vitamin D-3) 50 MCG (1999 UT) tablet Take 4,000 Units by mouth daily. citalopram (CeleXA) 20 MG tablet Take 20 mg by mouth daily. ezetimibe (Zetia) 10 MG tablet Take 1 tablet (10 mg) by mouth in the morning. 90 tablet 1 Finerenone (Kerendia) 10 MG tablet Take 1 tablet by mouth daily. Jentadueto XR 2.5-1000 MG per 24 hr tablet take 2 tablets by mouth once daily lansoprazole (Prevacid) [address] capsule 1 capsule in the morning. losartan (Cozaar) 100 MG tablet losartan 100 mg tablet metoprolol tartrate (Lopressor) 25 MG tablet metoprolol tartrate 25 mg tablet rosuvastatin (Crestor) 10 MG tablet daily. Vascepa 1 g capsule TAKE 2 CAPSULES BY MOUTH 2 TIMES DAILY 360 capsule 3 No current facility-administered medications on file prior to visit. 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 Substance and Sexual Activity Alcohol use: Yes Alcohol/week: 0.0 - 14.0 standard drinks of alcohol Comment: occ Drug use: No Sexual activity: Not on file Other Topics Concern Not on file Social History Narrative Not on file Social Determinants of Health Financial Resource Strain: Not on file Food Insecurity: Not on file Transportation Needs: Not on file Physical Activity: Not on file Stress: Not on file Social Connections: Not on file Intimate Partner Violence: Not on file Housing Stability: Not on file Family History Problem Relation Name Age of Onset Ovarian cancer Mother 66 Heart attack Father Baljeet 76 High Blood Pressure Father Baljeet Macular degeneration Father Baljeet Ovarian cancer Mother's Sister 45 Other ([id number]) Son neuofibromatosis, BRCA1 positive Neurofibromatosis Son High Blood Pressure Son Cancer Son hairy cell leukemia Breast cancer Cousin 42 +brca Bladder Cancer Cousin 19 Allergies Allergen Reactions Isosulfan Blue Anaphylaxis Methylene Blue Sulfa Antibiotics Rash Reviewed medications, allergies, past medical history, social history, family history as above. ROS: Constitutional: No fever, chills, night sweats, LINE RUNNER: No blurry vision , headaches, focal neurologic deficits HEENT: no oral lesions, sores, dysphagia, no neck swelling CV: No chest pain, SOB ENDO: no heat/cold intolerance, no polyuria/polydipsia PHYSICAL EXAM: BP (!) 168/66 Pulse 66 Temp 97 F (36.1 C) (Temporal) Ht 5' 7 (1.702 m) Wt 151 lb (68.5 kg) SpO2 96% BMI 23.65 kg/m CONSTITUTIONAL: see VS. No apparent distress. SKIN: No rashes PYSCH: AAOx3. Mood and affect appropriate, patient interactive Labs Most recent labs reviewed Lab Results Component Value Date CO2 24 12/03/2022 BUN 20 12/03/2022 CREATININE 0.83 12/03/2022 GLUCOSE 130 (H) 12/03/2022 CALCIUM 8.7 12/03/2022 PROT 6.5 12/03/2022 BILITOT 0.6 12/03/2022 ALKPHOS 45 12/03/2022 AST 14 12/03/2022 ALT 12 12/03/2022 Lab Results Component Value Date WBC 6.9 12/03/2022 HGB 12.8 12/03/2022 HCT 38.2 12/03/2022 MCV 89.9 12/03/2022 PLT 244 12/03/2022 RBC 4.25 12/03/2022 MCH 30.1 12/03/2022 MCHC 33.5 12/03/2022 RDW 12.7 12/03/2022 August 30, 2022 labs: CBC: 8.9/13.5/41.4/254 Creatinine 0.87 Alk phos 46 Total bilirubin 0.7 Urine protein electrophoresis = positive marked proteinuria Serum protein electrophoresis = normal October 16, 2022 labs: CBC: 6.3/13.4/21.7/269 MCV 94 No differential Radiology reviewed: 08/29/2022 CXR = IMPRESSION: 1. No evidence of acute cardiopulmonary process. 11/04/2022 CXR = FINDINGS: The lungs are hyperinflated. There is no focal lung consolidation or effusion. There is no edema. The cardiac silhouette is within normal limits for size. 11/14/2022 shoulder xray Mild AC degenerative changes. Dystrophic calcifications in the distal rotator cuff tendons ----12/15/2022 CT = COMPARISON: CT chest dated 06/16/2012 CHEST: No focal consolidation is seen within the lungs. There is no pleural effusion or pneumothorax. Mildemphysematous changes are noted within the lungs. There is a subpleural nodule at the left costophrenic sulcus measuring [address] image 283 of 376, unchanged when compared to the CT from 06/16/2012. 3 mm subpleural nodule within the left lower lobe in image 257 is unchanged. A 3 mm subpleural nodule within the right lower lobe in image 293is unchanged. There is a 4 mm nodule within the right lung base in image 277, new when compared to the prior study. A small area of streaky, irregular parenchymal density within the lateral aspect ofthe right lung near the confluence of the right major and minor fissures laterally appears stable when compared to the prior examination. There is a small cluster of reticulonodular densities within the lateral aspect of the right middle lobe, not present on the prior study. There is no hilar, mediastinal, or axillary lymphadenopathy. Postoperative changes consistent with right mastectomy are noted. There is a left breast implant. The heart size is within normal limits. There is no pericardial effusion. Fairly extensive coronary artery calcification is noted. The thoracic aorta appears normal in caliber. No lytic or blastic lesions are seen on the bone windows. IMPRESSION: No lymphadenopathy is identified within the chest. Several small noncalcified nodules within the lungs bilaterally are noted, as described above. Mostof these appear stable when compared to the study from 06/16/2012, however there is a new 4 mm nodule within the right lung base which is nonspecific. A small cluster of reticulonodular densities within the lateral aspect of the right middle lobe is also a new, and is favored to be inflammatory or infectious. Given the patient's history of breast cancer, routine CT follow- up is recommended to ensure stability. Mild emphysematous changes. ABDOMEN AND PELVIS: The liver, gallbladder, spleen, pancreas, adrenal glands and kidneys appear within normal limits. The abdominal aorta is normal in caliber. Scattered vascular calcification is noted. There is no retroperitoneal, pelvic, or inguinal lymphadenopathy. The urinary bladder appears grossly normal. The uterus has been removed. The large and small bowel appears within normal limits without evidence of wall thickening or dilatation. There is no free fluid within the abdomen or pelvis. There is no free air under the diaphragm. No lytic or blastic lesions are seen on the bone windows. IMPRESSION: No lymphadenopathy or suspicious mass is identified within the abdomen or pelvis. ---12/15/2022 bone scan= BONE SCINTIGRAPHY (WHOLE BODY) CLINICAL INDICATION: Weight loss, shoulder pain, history of breast cancer Delayed whole body imaging was performed in the standard anterior and posterior projections following the intravenous administration of 22.1 mCi of technetium- 99m MDP. Additional spot views of the skull, pelvis, and ribs were also obtained. COMPARISON: CT chest abdomen and pelvis performed the same day FINDINGS: No evidence of osseous metastatic disease is identified. There is mild to moderate increased traceruptake within the cervical spine and right shoulder, likely degenerative etiology. More mild increased tracer uptake is noted within the left shoulder, thoracic and lumbar spine, wrists, hips, ankles, and feet. IMPRESSION: No evidence of osseous metastatic disease. Likely degenerative changes of the spine and joints as above. -04/17/2023 CT chest = CONTRAST: No IV contrast. COMPARISON: 12/15/2022 CT CHEST FINDINGS: Lungs: Mild centrilobular emphysematous changes noted. Right middle lobe lateral reticular nodular densities are unchanged. Nodules: Right middle lobe, 3 mm nodule, unchanged (image 245:5) Right lower lobe nodules, 4 mm and 5 mm, new (images 249 and 256:5). Right lower lobe, 4 mm nodule, unchanged since 12/15/2022 (image 265:5). Right lower lobe, 3 mm subpleural nodule laterally, unchanged (image 276:5). Left lower lobe, 5 mm nodule at costophrenic sulcus, unchanged (image 270:5). Left lower lobe, 3 mm subpleural nodule laterally, unchanged (image 244:5). Mediastinum and Jody: There is no lymphadenopathy. Central airway: The central airway is patent. Tracheobronchial tree calcifications are present. Thyroid and Esophagus: The thyroid gland contour is normal. The esophagus is not well-distended. A small sliding-type hiatal hernia is present. Heart and Great Vessels: Atherosclerotic calcifications of the aorta and coronary arteries are noted. Mitral annulus calcifications are present. The cardiac silhouette is not enlarged. There is no sizable pericardial effusion. Osseous structures: There is no suspicious blastic or lytic lesion. Multilevel endplate degenerative changes are present. Axilla and Soft tissue: There is no axillary adenopathy. Left breast mastectomy with implant reconstruction. Upper abdomen: The adrenal glands are within normal limits. IMPRESSION: 1. Bilateral small pulmonary nodules. Most of the nodules are stable compared to prior exams however there are two new right lower lobe pulmonary nodules measuring 4 mm and 5 mm. 2. Stable reticular nodular densities within the right middle lobe laterally. 3. Mild centrilobular emphysema. 2017 - UPDATED [employer] GUIDELINES FOR MANAGEMENT OF SMALL PULMONARY NODULES DETECTED ON CT Note: Recommendations do not apply for lung cancer screening, patients with immunosuppression or with known cancer. 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 documented in this [facility]08-16-2023 Telephone encounter Note* Telephone Encounter - Blaire Zhu - 04/01/2023 1:59 PM EDT Pt is requesting a refill on Amlodipine and Zetia to be sent to [id number] Miscellaneous Notes* Telephone Encounter - Blaire Zhu - 04/01/2023 1:59 PM EDT Pt is requesting a refill on Amlodipine and Zetia to be sent to [facility] documented in this [facility]06-29-2023 Telephone encounter Note* Telephone Encounter - Blaire Zhu - 02/12/2023 9:07 AM EDT Please advise if pt is cleared for colonoscopy on 02-16-23 [facility] [id number] Miscellaneous Notes* Telephone Encounter - Blaire Zhu - 02/12/2023 9:07 AM EDT Please advise if pt is cleared for colonoscopy on 02-16-23 * Telephone Encounter - Veronika Couch - 02/05/2023 3:46 PM EDT I rec'd a call from Dr Angélica Nina's office. She said that she was following up on cardiac clearance request form she faxed to [facility] back on 01/01/23. Pt is scheduled for colonoscopy /EGD on 02/16/23. She re faxed form, put in [place]'s mail slot. documented in this [facility]06-22-2023 Telephone encounter Note* Telephone Encounter - Veronika ChiangMaritza Couch - 02/05/2023 3:46 PM EDT I rec'd a call from Dr Angélica Nina's office. She said that she was following up on cardiac clearance request form she faxed to [facility] back on 01/01/23. Pt is scheduled for colonoscopy /EGD on 02/16/23. She re faxed form, put in [place]'s mail slot. [facility] [id number] History of Present illness Narrative* Keven Priest MD - 12/18/2022 11:30 AM EDT Images from the original note were not included. Keven Marcus MD [facility] Hematology/Oncology - [facility] [address] [facility] [address] [facility] [address] Dept: [phone] Dept PROBLEM LIST: 1.Weight loss 2. Stage I LEFT sided (pT1b pN0) Triple negative breast cancer: -05/19/2011 LEFT mastectomy showed 0.6cm poorly differentiated carcinoma. LN evaluation was negativefor disease. -s/p TC x 4 until 11/2011 3. RIGHT sided breast cancer: S/p RIGHT sided mastectomy w/ axillary LN dissection 07/08/1994 followed by adjuvant chemo, followed by 5 yrs of tamoxifen. Treated by Dr. Lisa Rehmus -s/p R breast reconstruction 1993 4. BRCA1 mutation positive: S/p bilateral mastectomy and TAHBSO ASSESSMENT AND PLAN: Rolando Peters is a 77 y.o. female here for 1. History of bilateral breast cancer -12/15/2022 CT / bone scan= no overt evidence of malignancy. However with the lung nodules (most of which appear stable but some new small ones), I will recommend a repeat CT in 3-4 months -11/2022 labs - stable -f/u after repeat CT chest in 3-4 months HPI: Rolando Peters is a 77 y.o. female who presents here today with breast cancer Pt feels well. No complaints at this time. She is planning C scope soon. Weight loss has stabilized Past Medical History: Diagnosis Date Arthritis Asthma Breast cancer (HCC) 1993 Right Breast(Mastectomy) Breast cancer (HCC) 2010 Left Breast(Simple Mastectomy, SLND) Chronic kidney disease Diabetes (HCC) GERD (gastroesophageal reflux disease) High blood pressure Occlusion and stenosis of unspecified carotid artery Pure hypercholesterolemia Past Surgical History: Procedure Laterality Date CAROTID ENDARTERECTOMY Right 2009 CATARACT EXTRACTION 2006 MASTECTOMY Left 2010 simple/reconstruction/gingivagrapht MASTECTOMY Right 1993 reconstruction (TRAM) TOTAL ABDOMINAL HYSTERECTOMY W/ BILATERAL SALPINGOOPHORECTOMY 1998 TUBAL LIGATION 1979 Current Outpatient Medications on File Prior to Visit Medication Sig Dispense Refill albuterol 108 (90 Base) MCG/ACT inhaler albuterol sulfate HFA 90 mcg/actuation aerosol inhaler amLODIPine (Norvasc) 10 MG tablet amlodipine 10 mg tablet aspirin 81 MG chewable tablet daily. cholecalciferol (Vitamin D-3) 50 MCG (1999) tablet Take 4,000 Units by mouth daily. citalopram (CeleXA) 20 MG tablet Take 20 mg by mouth daily. ezetimibe (Zetia) 10 MG tablet daily. Jentadueto XR 2.5-1000 MG per 24 hr tablet take 2 tablets by mouth once daily lansoprazole (Prevacid) [address] capsule 1 capsule in the morning. losartan (Cozaar) 100 MG tablet losartan 100 mg tablet metoprolol tartrate (Lopressor) 25 MG tablet metoprolol tartrate 25 mg tablet rosuvastatin (Crestor) 10 MG tablet daily. Vascepa 1 g capsule TAKE 2 CAPSULES BY MOUTH 2 TIMES DAILY 360 capsule 3 No current facility-administered medications on file prior to visit. 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 Substance and Sexual Activity Alcohol use: Yes Alcohol/week: 0.0 - 14.0 standard drinks Comment: occ Drug use: No Sexual activity: Not on file Other Topics Concern Not on file Social History Narrative Not on file Social Determinants of Health Financial Resource Strain: Not on file Food Insecurity: Not on file Transportation Needs: Not on file Physical Activity: Not on file Stress: Not on file Social Connections: Not on file Intimate Partner Violence: Not on file Housing Stability: Not on file Family History Problem Relation Name Age of Onset Ovarian cancer Mother 66 Heart attack Father Baljeet 76 High Blood Pressure Father Baljeet Macular degeneration Father Baljeet Ovarian cancer Mother's Sister 45 Other ([id number]) Son neuofibromatosis, BRCA1 positive Neurofibromatosis Son High Blood Pressure Son Cancer Son hairy cell leukemia Breast cancer Cousin 42 +brca Bladder Cancer Cousin 19 Allergies Allergen Reactions Isosulfan Blue Anaphylaxis Methylene Blue Sulfa Antibiotics Rash Reviewed medications, allergies, past medical history, social history, family history as above. ROS: Constitutional: No fever, chills, night sweats, LINE RUNNER: No blurry vision , headaches, focal neurologic deficits HEENT: no oral lesions, sores, dysphagia, no neck swelling CV: No chest pain, SOB ENDO: no heat/cold intolerance, no polyuria/polydipsia PHYSICAL EXAM: BP (!) 165/61 Pulse 68 Temp 97 F (36.1 C) (Temporal) Ht 5' 7 (1.702 m) Wt 155 lb 1.6 oz (70.4 kg) SpO2 97% BMI 24.29 kg/m CONSTITUTIONAL: see VS. No apparent distress. SKIN: No rashes PYSCH: AAOx3. Mood and affect appropriate, patient interactive Labs Most recent labs reviewed Lab Results Component Value Date CO2 24 12/03/2022 BUN 20 12/03/2022 CREATININE 0.83 12/03/2022 GLUCOSE 130 (H) 12/03/2022 CALCIUM 8.7 12/03/2022 PROT 6.5 12/03/2022 BILITOT 0.6 12/03/2022 ALKPHOS 45 12/03/2022 AST 14 12/03/2022 ALT 12 12/03/2022 Lab Results Component Value Date WBC 6.9 12/03/2022 HGB 12.8 12/03/2022 HCT 38.2 12/03/2022 MCV 89.9 12/03/2022 PLT 244 12/03/2022 RBC 4.25 12/03/2022 MCH 30.1 12/03/2022 MCHC 33.5 12/03/2022 RDW 12.7 12/03/2022 August 30, 2022 labs: CBC: 8.9/13.5/41.4/254 Creatinine 0.87 Alk phos 46 Total bilirubin 0.7 Urine protein electrophoresis = positive marked proteinuria Serum protein electrophoresis = normal October 16, 2022 labs: CBC: 6.3/13.4/21.7/269 MCV 94 No differential Radiology reviewed: 08/29/2022 CXR = IMPRESSION: 1. No evidence of acute cardiopulmonary process. 11/04/2022 CXR = FINDINGS: The lungs are hyperinflated. There is no focal lung consolidation or effusion. There is no edema. The cardiac silhouette is within normal limits for size. 11/14/2022 shoulder xray Mild AC degenerative changes. Dystrophic calcifications in the distal rotator cuff tendons ----12/15/2022 CT = COMPARISON: CT chest dated 06/16/2012 CHEST: No focal consolidation is seen within the lungs. There is no pleural effusion or pneumothorax. Mildemphysematous changes are noted within the lungs. There is a subpleural nodule at the left costophrenic sulcus measuring [address] image 283 of 376, unchanged when compared to the CT from 06/16/2012. 3 mm subpleural nodule within the left lower lobe in image 257 is unchanged. A 3 mm subpleural nodule within the right lower lobe in image 293is unchanged. There is a 4 mm nodule within the right lung base in image 277, new when compared to the prior study. A small area of streaky, irregular parenchymal density within the lateral aspect ofthe right lung near the confluence of the right major and minor fissures laterally appears stable when compared to the prior examination. There is a small cluster of reticulonodular densities within the lateral aspect of the right middle lobe, not present on the prior study. There is no hilar, mediastinal, or axillary lymphadenopathy. Postoperative changes consistent with right mastectomy are noted. There is a left breast implant. The heart size is within normal limits. There is no pericardial effusion. Fairly extensive coronary artery calcification is noted. The thoracic aorta appears normal in caliber. No lytic or blastic lesions are seen on the bone windows. IMPRESSION: No lymphadenopathy is identified within the chest. Several small noncalcified nodules within the lungs bilaterally are noted, as described above. Mostof these appear stable when compared to the study from 06/16/2012, however there is a new 4 mm nodule within the right lung base which is nonspecific. A small cluster of reticulonodular densities within the lateral aspect of the right middle lobe is also a new, and is favored to be inflammatory or infectious. Given the patient's history of breast cancer, routine CT follow- up is recommended to ensure stability. Mild emphysematous changes. ABDOMEN AND PELVIS: The liver, gallbladder, spleen, pancreas, adrenal glands and kidneys appear within normal limits. The abdominal aorta is normal in caliber. Scattered vascular calcification is noted. There is no retroperitoneal, pelvic, or inguinal lymphadenopathy. The urinary bladder appears grossly normal. The uterus has been removed. The large and small bowel appears within normal limits without evidence of wall thickening or dilatation. There is no free fluid within the abdomen or pelvis. There is no free air under the diaphragm. No lytic or blastic lesions are seen on the bone windows. IMPRESSION: No lymphadenopathy or suspicious mass is identified within the abdomen or pelvis. ---12/15/2022 bone scan= BONE SCINTIGRAPHY (WHOLE BODY) CLINICAL INDICATION: Weight loss, shoulder pain, history of breast cancer Delayed whole body imaging was performed in the standard anterior and posterior projections following the intravenous administration of 22.1 mCi of technetium- 99m MDP. Additional spot views of the skull, pelvis, and ribs were also obtained. COMPARISON: CT chest abdomen and pelvis performed the same day FINDINGS: No evidence of osseous metastatic disease is identified. There is mild to moderate increased traceruptake within the cervical spine and right shoulder, likely degenerative etiology. More mild increased tracer uptake is noted within the left shoulder, thoracic and lumbar spine, wrists, hips, ankles, and feet. IMPRESSION: No evidence of osseous metastatic disease. Likely degenerative changes of the spine and joints as above. 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 documented in this [facility]04-28-2023 History of Present illness Narrative* Sarah Lopez, PharmD - 12/12/2022 9:15 AM EDT Subjective Patient ID: Rolando Peters is a 77 y.o. female who presents for Diabetes. Referring Provider: Celia Al DO Patient referred to clinical pharmacy for assistance with diabetes medication management. A1c historically well controlled, most recently 6.2% in October 2022, an improvement from prior A1c of 6.5% and7.3% the prior year. Following initial referral to pharmacy patient was transitioned off Januvia + glipizide onto Jentadueto (Tradjenta / metformin) d/t insurance coverage and for simplification of therapy as well as cost benefit. Patient started therapy with Jentadueto 09/30/21 and has tolerated therapy well, now on 5 mg/2000mg daily. Sugars did increase slightly following steroid injection this past month but FBG is controlled this AM 118. She is having bone density scan and is inquiring whether to hold Jentadueto. Objective There were no vitals taken for this visit. Labs Lab Results Component Value Date BILITOT 0.7 10/16/2022 CALCIUM 9.7 10/16/2022 CO2 28 10/16/2022 CL 101 10/16/2022 CREATININE 0.73 10/16/2022 GLUCOSE 125 (H) 10/16/2022 ALKPHOS 42 10/16/2022 K 4.8 10/16/2022 PROT 6.6 10/16/2022 NA 138 10/16/2022 AST 13 10/16/2022 ALT 13 10/16/2022 BUN 15 10/16/2022 ANIONGAP 14 10/16/2022 PHOS 3.8 10/16/2022 ALBUMIN 4.2 10/16/2022 GFRF 85 10/16/2022 Lab Results Component Value Date TRIG 179 (H) 10/16/2022 CHOL 133 10/16/2022 HDL 52.7 10/16/2022 Lab Results Component Value Date HGBA1C 6.2 (A) 10/16/2022 Current Outpatient Medications on File Prior to Visit Medication Sig Dispense Refill albuterol 90 mcg/actuation inhaler Inhale 2 puffs every 4 hours if needed. amLODIPine (Norvasc) 10 mg tablet Take 1 tablet (10 mg) by mouth once daily. aspirin 81 mg EC tablet Take 1 tablet (81 mg) by mouth once daily. cholecalciferol (Vitamin D-3) 50 MCG (2000 UT) tablet Take 2 tablets (100 mcg) by mouth once daily. citalopram (CeleXA) 20 mg tablet Take 1 tablet (20 mg) by mouth once daily. 90 tablet 3 clindamycin (Cleocin T) 1 % lotion twice a day. Apply sparingly and massage in ezetimibe (Zetia) 10 mg tablet Take 1 tablet (10 mg) by mouth once daily. fluocinonide (Lidex) 0.05 % external solution 1 (one) time each day. Apply to affected areas icosapent ethyL (Vascepa) 1 gram capsule Take 2 capsules (2 g) by mouth in the morning and 2 capsules (2 g) in the evening. lansoprazole (Prevacid) [address] capsule Take 1 capsule (30 mg) by mouth once daily. 90 capsule 3 linagliptin-metformin (Jentadueto XR) 2.5-1,000 mg tablet, IR - ER, biphasic 24hr Take 2 tablets bymouth once daily. 180 tablet 3 losartan (Cozaar) 100 mg tablet Take 1 tablet (100 mg) by mouth once daily. 90 tablet 3 metoprolol tartrate (Lopressor) 25 mg tablet Take 1 tablet (25 mg) by mouth in the morning and 1 tablet (25 mg) before bedtime. 180 tablet 3 rosuvastatin (Crestor) 10 mg tablet Take 1 tablet (10 mg) by mouth once daily. 90 tablet 3 No current facility-administered medications on file prior to visit. Assessment/Plan Problem List Items Addressed This Visit 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 with 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, without long-term current use of insulin ([facility]) 1. CONTINUE Jentadueto 2.5 / 1000 mg XR take 2 tablets by mouth once daily. - Hold for contrast dyeprocedure this upcoming week 24 hours before and 48h after procedure ends. 2. Medications are dosed appropriately for current renal and hepatic function, continue to monitor. Clinical Pharmacist follow-up: as needed Type of Encounter: Virtual Thank you, Matteo Lopez, CricketD, [facility] Verbal consent to manage patient's drug therapy was obtained from the patient. They were informed they may decline to participate or withdraw from participation in pharmacy services at any time. [facility] Work Phone: 1(344) 189-989003-21-2023 History of Present illness Narrative* Celia Al DO - 11/04/2022 1:40 PM EDT Subjective Reason for Visit: Rolando Peters is an 77 y.o. female here for a Medicare Wellness visit. Past Medical, Surgical, and Family History reviewed and updated in chart. Reviewed all medications by prescribing practitioner or clinical pharmacist (such as prescriptions,OTCs, herbal therapies and supplements) and documented in the medical record. HPI Patient presents for physical exam. 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 Gavin due 2022 Patient denies other complaints. Patient Self Assessment of Health Status Patient Self Assessment: Fair Nutrition and Exercise Current Diet: Heart Healthy Diet Adequate Fluid Intake: No Caffeine: Yes Exercise Frequency: No Exercise Functional Ability/Level of Safety Cognitive Impairment Observed: No cognitive impairment observed Cognitive Impairment Reported: No cognitive impairment reported by patient or family Home Safety Risk Factors: No grab bars, bathroom Patient Care Team: Celia Al DO as PCP - General Celia Al DO as PCP - [employer] PCP Rashi Jerome MD as Referring Physician (Cardiology) Review of Systems Constitutional: Negative for activity change, appetite change, fatigue and fever. HENT: Negative for congestion. Respiratory: Negative for cough, choking and chest tightness. Cardiovascular: Negative for chest pain, palpitations and leg swelling. Musculoskeletal: Negative for arthralgias, back pain and gait problem. Skin: Negative for color change and pallor. Neurological: Positive for light-headedness. Negative for dizziness, facial asymmetry and headaches. Psychiatric/Behavioral: The patient is nervous/anxious. Objective Vitals: BP 148/66 (BP Location: Left arm) Pulse 74 Ht 1.702 m (5' 7) Wt 68.6 kg (151 lb 3.2 oz) BMI 23.68 kg/m Physical Exam Constitutional: General: She is not in acute distress. Appearance: Normal appearance. She is not toxic-appearing. HENT: Head: Normocephalic. Right Ear: Tympanic membrane, ear canal and external ear normal. Left Ear: Tympanic membrane, ear canal and external ear normal. Nose: Nose normal. Mouth/Throat: Pharynx: Oropharynx is clear. Eyes: Conjunctiva/sclera: Conjunctivae normal. Pupils: Pupils are equal, round, and reactive to light. Cardiovascular: Rate and Rhythm: Normal rate and regular rhythm. Pulses: Normal pulses. Heart sounds: Normal heart sounds. Pulmonary: Effort: No respiratory distress. Breath sounds: No wheezing, rhonchi or rales. Abdominal: General: Bowel sounds are normal. There is no distension. Palpations: Abdomen is soft. Tenderness: There is no abdominal tenderness. Musculoskeletal: General: No swelling or tenderness. Cervical back: No tenderness. Skin: Findings: No lesion or rash. Neurological: General: No focal deficit present. Mental Status: She is alert and oriented to person, place, and time. Mental status is at baseline. Gait: Gait normal. Psychiatric: Mood and Affect: Mood normal. Behavior: Behavior normal. Thought Content: Thought content normal. Judgment: Judgment normal. 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 Patient's blood work discussed at this office visit 2. Patient's LDL goal less than 100 secondary to her diabetes, current LDL 45 3. Triglyceride goal less than 150 current triglycerides 179, continue type IV diet 4. Patient continue on her vitamin D3 2000 units daily for lifetime 5. Patient's hemoglobin A1c 6.2, goal hemoglobin A1c less than 6.5 continue no added sugar diet 6. Mammogram 1993 mastectomy right with transflap then had mastectomy left side on 2010 7. Mammogram 1993 mastectomy right with transflap then had mastectomy left side on 2010 8. DEXA osteoporosis 2016 normal due [address] Gavin due 2022 10. Patient has been loosing weight, needs to see heme/oncologist we will make patient appt 11. Patient to call if questions or concerns documented in this [facility]Ohio [facility] Work Phone: 1(308) 110-716203-21-2023 Evaluation + Plan note* Assessment & Plan Note - Celia Al DO - 11/04/2022 1:38 PM EDTAssociated Problem(s): 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 with 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, without long-term current use of insulin (CMS/HCC) Patient was diagnosed about 2017 and has been on medication and stable since that time [facility] Work Phone: 1(196) 156-691903-21-2023 Evaluation + Plan note* Assessment & Plan Note - Celia Al DO - 11/04/2022 1:38 PM EDTAssociated Problem(s): 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, uns pecified estrogen receptor status (CMS/HCC) Mammogram 1993 mastectomy right with transflap then had mastectomy left side on 2010 [facility] Work Phone: 1(856) 549-507003-21-2023 Miscellaneous Notes* Assessment & Plan Note - Celia Al DO - 11/04/2022 1:38 PM EDTAssociated Problem(s): 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 with 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, without long-term current use of insulin ([facility]) Patient was diagnosed about 2017 and has been on medication and stable since that time * Assessment & Plan Note - Celia Al DO - 11/04/2022 1:38 PM EDTAssociated Problem(s): 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 female who presents for Neck Pain (Right shoulder pain). Patient presents having troubles with neck pain and shoulder pain.Having R shouder and neck pain. Overthe last 4 to 6 weeks patient's had some pain discomfort in the right side of neck going into the area of the right shoulder then she had right shoulder pain and discomfort. She states that this may have happened because she slept on the tile. She has had no numbness no tingling into the hand but she does get some pain discomfort into the area of the right bicep muscle or tricep muscle area. She has taken some anti-inflammatory but stopped it because she had learned that that could affect the kidneys. She has had massotherapy which did help but only for about an hour or 2 then that seem to come back. She has had no other injury to this area. Had a massage. 6 weeks. Pillow under the neck. HPI Review of Systems Respiratory: Negative. Cardiovascular: Negative. Musculoskeletal: Some pain at the base of the right neck. Some pain in the right shoulder. Objective BP 140/62 Pulse 68 Temp 36.3 C (97.3 F) Ht 1.708 m (5' 7.25) Wt 69.9 kg (154 lb) SpO2 97% BMI 23.94 kg/m Physical Exam Constitutional: Appearance: She is normal weight. Neck: Comments: Some discomfort in the paravertebral executive director global brand marketing of the right side of the neck. Slight pain with hyperextension and with excellent forward strong shoulder shrug noted strong handgrip strength deep tendon reflexes are equal and strong bilaterally. Shoulder revealed some pain anterior aspect and posterior aspect. Pain with internal and external rotation. Good strong abduction. Empty beer cantesting is positive. Cardiovascular: Rate and Rhythm: Normal rate and regular rhythm. Pulmonary: Effort: Pulmonary effort is normal. Neurological: Mental Status: She is alert. Assessment/Plan Problem List Items Addressed This Visit Musculoskeletal Shoulder impingement syndrome, right - Primary Relevant Medications methylPREDNISolone (Medrol Dospak) 4 mg tablets [facility]: [phone]) 316-826603-09-2023 Instructions* Patient Instructions* Ryan Gerard DO - 10/23/2022 1:40 PM EST Treating for shoulder impingement and cervical radiculopathy. Please take Medrol Dosepak as directed. Please keep track of blood sugar readings. If this should rise above 250 while taking the medicine please let us know. Take a steroid could cause elevation of the glucose level. In 1 week I would like to know how you are doing. Please call and let me know. May call Kristina [facility] Work Phone: [phone]) 585-352202-20-2023 Telephone encounter Note* Telephone Encounter - SUJATA Enamorado CNP - 10/06/2022 12:20 PM EST Labs reviewed and are stable. [facility] [id number] Miscellaneous Notes* Telephone Encounter - SUJATA Enamorado CNP - 10/06/2022 12:20 PM EST Labs reviewed and are stable. * Telephone Encounter - Veronika Couch - 09/24/2022 3:53 PM EST I requested copy of labs from pcp's office. * Telephone Encounter - SUJATA Enamorado CNP - 09/23/2022 11:56 AM EST Please get a copy of most recent labs from PCP, thanks. documented in this encounterSSt. [facility] [id number] Telephone encounter Note* Telephone Encounter - Veronika Couch - 09/24/2022 3:53 PM EST I requested copy of labs from pcp's office. [facility] [id number] Telephone encounter Note* Telephone Encounter - SUJATA Enamorado CNP - 09/23/2022 11:56 AM EST Please get a copy of most recent labs from PCPflor. [facility] [id number] Evaluation + Plan note* Assessment & Plan Note - SUJATA Enamorado CNP - 09/23/2022 11:39 AM ESTAssociated Problem(s): Orthostatic hypotension orthos + in office today with supine hypertension. - recommend compression stockings - avoid dehydration - stay off hydrochlorothiazide - if symptoms worsen, would decrease dose of amlodipine [facility] [id number] Miscellaneous Notes* Assessment & Plan Note - SUJATA Enamorado CNP - 09/23/2022 11:39 AM ESTAssociated Problem(s): Orthostatic hypotension orthos + in office today with supine hypertension. - recommend compression stockings - avoid dehydration - stay off hydrochlorothiazide - if symptoms worsen, would decrease dose of amlodipine * Assessment & Plan Note - SUJATA Enamorado CNP - 09/22/2022 1:30 PM ESTAssociated Problem(s): History of COVID-19 She feels fine but with hx of Covid could have some autonomic issues. -Cont to monitor. * Assessment & Plan Note - SUJATA Enamorado CNP - 09/22/2022 1:29 PM ESTAssociated Problem(s): Dyslipidemia LDL at target, 51 (2020) - Cont zetia - Cont crestor 20 mg daily; check lipids yearly - Cont Vascepa. -Cont lifestyle mgt given elev TG; if much higher over time, consider Tricor * Assessment & Plan Note - SUJATA Enamorado CNP - 09/22/2022 1:28 PM ESTAssociated Problem(s): Bilateral carotid artery stenosis Moderate. Coronary risk equivalent. No symptoms. She has a history of right carotid endarterectomy. -Carotid US 04/2023 -Given ASCVD and DM2 consider add SGLT2i (will hold off for now as the diuretic effect may worsen her syncopal symptoms) * Assessment & Plan Note - SUJATA Enamorado CNP - 09/22/2022 1:28 PM ESTAssociated Problem(s): Essential hypertension Borderline control. Supine hypertension with orthostasis. -Continue Lopressor, losartan, Norvasc. -Remain off hydrochlorothiazide - may need to allow higher BP to avoid hypotension * Assessment & Plan Note - SUJATA Enamorado CNP - 09/22/2022 1:28 PM ESTAssociated Problem(s): Palpitations Notices this at night. Minimal. But felt a little bit more recently. -Continue lopressor. -If continues then would check EM * Assessment & Plan Note - SUJATA Enamorado CNP - 09/22/2022 1:27 PM ESTAssociated Problem(s): Syncope and collapse Most likely 2/2 orthostatic hypotension (see below) and possible vasovagal syncope from back pain. Normal echocardiogram. -Remain off hydrochlorothiazide -Event monitor if she has recurrent symptoms documented in this [facility]02-07-2023 History of Present illness Narrative* SUJATA Enamorado CNP - 09/23/2022 11:00 AM EST Images from the original note were not included. [facility] [address] [place] [address] Dept: [phone] Dept Loc: [phone] Visit type: Established : 1945 Reason for Visit: Follow-up Assessment and Plan 1. Syncope and collapse Assessment & Plan: Most likely 2/2 orthostatic hypotension (see below) and possible vasovagal syncope from back pain. Normal echocardiogram. -Remain off hydrochlorothiazide -Event monitor if she has recurrent symptoms 2. Palpitations Assessment & Plan: Notices this at night. Minimal. But felt a little bit more recently. -Continue lopressor. -If continues then would check EM 3. Essential hypertension Assessment & Plan: Borderline control. Supine hypertension with orthostasis. -Continue Lopressor, losartan, Norvasc. -Remain off hydrochlorothiazide - may need to allow higher BP to avoid hypotension 4. Bilateral carotid artery stenosis Assessment & Plan: Moderate. Coronary risk equivalent. No symptoms. She has a history of right carotid endarterectomy. -Carotid US 04/2023 -Given ASCVD and DM2 consider add SGLT2i (will hold off for now as the diuretic effect may worsen her syncopal symptoms) Orders: - Vascular US carotid artery duplex bilateral 5. Dyslipidemia Assessment & Plan: LDL at target, 51 (2020) - Cont zetia - Cont crestor 20 mg daily; check lipids yearly - Cont Vascepa. -Cont lifestyle mgt given elev TG; if much higher over time, consider Tricor 6. History of COVID-19 Assessment & Plan: She feels fine but with hx of Covid could have some autonomic issues. -Cont to monitor. 7. Orthostatic hypotension Assessment & Plan: orthos + in office today with supine hypertension. - recommend compression stockings - avoid dehydration - stay off hydrochlorothiazide - if symptoms worsen, would decrease dose of amlodipine Follow up in about 6 months (around 03/23/2023). Subjective Hx of carotid dz and CEA. She has no hx of known cardiac disease. She reports her diabetes is reasonably well-controlled and lab work done recently shows a hemoglobin A1c less than 7. She has some peripheral neuropathy with this diagnosis but otherwise it is managed adequately with oral therapy. Carotid US which showed bilateral stenosis but non-severe 2021. She also has an echo ich showed preserved EF 65% and no significant valve disease. Seen by Dr. Jerome August 2022 after she had an episode of syncope while standing in the grocery store checkout line. She reports symptoms of occasional dizziness if she is standing too long she described her episode as feeling lightheaded with hazy vision and then she was down on the floor. Her h ydrochlorothiazide was stopped. She had an echocardiogram which was normal. She presents today for reevaluation. Currently: Overall, she feels fairly good. She still gets rare episodes of dizziness, especially when changingpositions. No recurrent syncope. Denies CP, PND, orthopnea, edema, palpitations. Still with back pian when standing too long. Rolando Peters Review of Systems Constitutional: Negative for activity change, chills, diaphoresis, fatigue and fever. HENT: Negative for nosebleeds and trouble swallowing. Eyes: Positive for visual disturbance (dry eye, occasional blurriness). Respiratory: Positive for apnea and shortness of breath (CRUZ, especially with steps). Negative for cough, chest tightness and wheezing. Denies PND, orthopnea Cardiovascular: Negative for chest pain, palpitations and leg swelling. Gastrointestinal: Negative for abdominal distention, abdominal pain, blood in stool, diarrhea, nausea and vomiting. Genitourinary: Negative for hematuria. Musculoskeletal: Positive for back pain and myalgias. Negative for gait problem. Skin: Negative for color change and rash. Neurological: Positive for light-headedness (if changes positions too quickly). Negative for dizziness, seizures, syncope, facial asymmetry, speech difficulty, weakness, numbness and headaches. Hematological: Does not bruise/bleed easily. Psychiatric/Behavioral: Positive for dysphoric mood. Allergies Allergen Reactions Isosulfan Blue Anaphylaxis Methylene Blue Sulfa Antibiotics Rash Outpatient Medications Prior to Visit Medication Sig Dispense Refill albuterol 108 (90 Base) MCG/ACT inhaler albuterol sulfate HFA 90 mcg/actuation aerosol inhaler amLODIPine (Norvasc) 10 MG tablet amlodipine 10 mg tablet aspirin 81 MG chewable tablet daily. cholecalciferol (Vitamin D-3) 50 MCG (2000 UT) tablet Take 4,000 Units by mouth daily. citalopram (CeleXA) 20 MG tablet Take 20 mg by mouth daily. ezetimibe (Zetia) 10 MG tablet daily. Jentadueto XR 2.5-1000 MG per 24 hr tablet take 2 tablets by mouth once daily lansoprazole (Prevacid) [address] capsule 1 capsule in the morning. losartan (Cozaar) 100 MG tablet losartan 100 mg tablet metoprolol tartrate (Lopressor) 25 MG tablet metoprolol tartrate 25 mg tablet rosuvastatin (Crestor) 10 MG tablet daily. Vascepa 1 g capsule TAKE 2 CAPSULES BY MOUTH 2 TIMES DAILY 360 capsule 3 ibuprofen 600 MG tablet every 8 hours. No facility-administered medications prior to visit. Past Medical History: Diagnosis Date Arthritis Asthma Breast cancer (HCC) 1993 Right Breast(Mastectomy) Breast cancer (HCC) 2010 Left Breast(Simple Mastectomy, SLND) Chronic kidney disease Diabetes (HCC) GERD (gastroesophageal reflux disease) High blood pressure Occlusion and stenosis of unspecified carotid artery Pure hypercholesterolemia Social History Tobacco Use Smoking status: Former Types: Cigarettes Quit date: 06/12/1991 Years since quittin.3 Smokeless tobacco: Never Substance Use Topics Alcohol use: Yes Alcohol/week: 0.0 - 14.0 standard drinks Comment: occ Past Surgical History: Procedure Laterality Date CAROTID ENDARTERECTOMY Right 2009 CATARACT EXTRACTION 2006 MASTECTOMY Left 2010 simple/reconstruction/gingivagrapht MASTECTOMY Right 1993 reconstruction (TRAM) TOTAL ABDOMINAL HYSTERECTOMY W/ BILATERAL SALPINGOOPHORECTOMY 1998 TUBAL LIGATION 1979 Family History Problem Relation Name Age of Onset Other (33241) Son neuofibromatosis, BRCA1 positive Neurofibromatosis Son Heart attack Father Baljeet High Blood Pressure Father Baljeet Macular degeneration Father Baljeet High Blood Pressure Son Cancer Son hairy cell leukemia Ovarian cancer Mother 40 Ovarian cancer Mother's Sister 40 Objective Vitals: 09/23/22 1107 09/23/22 1112 09/23/22 1113 BP: 110/58 (!) 166/70 (!) 144/60 BP Location: Left arm Left arm Left arm Patient Position: Standing Lying Sitting BP Cuff Size: Adult Adult Adult Pulse: 75 72 66 Resp: 16 16 16 SpO2: 95% 96% 97% Weight: 155 lb (70.3 kg) Height: 5' 7 (1.702 m) Physical Exam Vitals reviewed. Constitutional: General: She is not in acute distress. Appearance: Normal appearance. She is well-developed. HENT: Head: Normocephalic and atraumatic. Mouth/Throat: Mouth: Mucous membranes are moist. Pharynx: Oropharynx is clear. Eyes: General: No scleral icterus. Extraocular Movements: Extraocular movements intact. Neck: Vascular: No JVD. Cardiovascular: Rate and Rhythm: Normal rate and regular rhythm. Heart sounds: Normal heart sounds. No murmur heard. Pulmonary: Effort: Pulmonary effort is normal. Breath sounds: Normal breath sounds. Abdominal: General: Bowel sounds are normal. Palpations: Abdomen is soft. Musculoskeletal: Right lower leg: No edema. Left lower leg: No edema. Neurological: Mental Status: She is alert. Psychiatric: Attention and Perception: Attention normal. Behavior: Behavior is cooperative. Data Reviewed and Summarized EF BP Date Value Ref Range Status 09/18/2022 70 55 - 100 % Final Review of tests/labs done/ordered within my specialty: TTE: 09/18/2022 Left Ventricle: Left ventricle is smaller than normal. Normal wall thickness. Ventricular mass is less than normal. Normal left ventricular systolic function. The EF by visual approximation is 65%. EF by 2D Simpsons Biplane is 70%. Normal wall motion. Diastolic dysfunction present with normal LVEF.E/A ratio is 1.17. Average E/e' ratio is 26.04. Right Ventricle: Right ventricle size is normal. Normal systolic function. TAPSE is normal. Pulmonary Arteries: Unable to assess RVSP due to limited technical data. No significant valvular abnormalities. Review of tests/labs done/ordered outside my specialty: Independent interpretation of tests: SUJATA Enamorado CNP documented in this [facility]02-07-2023 Instructions* Patient Instructions* SUJATA Enamorado CNP - 09/23/2022 11:00 AM EST Wear compression stockings Stay hydrated documented in this [facility]02-06-2023 Evaluation + Plan note* Assessment & Plan Note - SUJATA Enamorado CNP - 09/22/2022 1:30 PM ESTAssociated Problem(s): History of COVID-19 She feels fine but with hx of Covid could have some autonomic issues. -Cont to monitor. [facility]02-06-2023 Evaluation + Plan note* Assessment & Plan Note - SUJATA Enamorado CNP - 09/22/2022 1:29 PM ESTAssociated Problem(s): Dyslipidemia LDL at target, 51 (2020) - Cont zetia - Cont crestor 20 mg daily; check lipids yearly - Cont Vascepa. -Cont lifestyle mgt given elev TG; if much higher over time, consider Tricor [facility]02-06-2023 Evaluation + Plan note* Assessment & Plan Note - SUJATA Enamorado CNP - 09/22/2022 1:28 PM ESTAssociated Problem(s): Bilateral carotid artery stenosis Moderate. Coronary risk equivalent. No symptoms. She has a history of right carotid endarterectomy. -Carotid US 04/2023 -Given ASCVD and DM2 consider add SGLT2i (will hold off for now as the diuretic effect may worsen her syncopal symptoms) [facility]02-06-2023 Evaluation + Plan note* Assessment & Plan Note - SUJATA Enamorado CNP - 09/22/2022 1:28 PM ESTAssociated Problem(s): Essential hypertension Borderline control. Supine hypertension with orthostasis. -Continue Lopressor, losartan, Norvasc. -Remain off hydrochlorothiazide - may need to allow higher BP to avoid hypotension [facility] [id number] Evaluation + Plan note* Assessment & Plan Note - SUJATA Enamorado CNP - 09/22/2022 1:28 PM ESTAssociated Problem(s): Palpitations Notices this at night. Minimal. But felt a little bit more recently. -Continue lopressor. -If continues then would check EM [facility] [id number] Evaluation + Plan note* Assessment & Plan Note - SUJATA Enamorado CNP - 09/22/2022 1:27 PM ESTAssociated Problem(s): Syncope and collapse Most likely 2/2 orthostatic hypotension (see below) and possible vasovagal syncope from back pain. Normal echocardiogram. -Remain off hydrochlorothiazide -Event monitor if she has recurrent symptoms [facility] [id number] Evaluation + Plan note* Assessment & Plan Note - Rashi Jerome MD - 09/01/2022 4:29 PM ESTAssociated Problem(s): History of COVID-19 She feels fine but with hx of Covid could have some autonomic issues. -Cont to monitor. [facility] [id number] Miscellaneous Notes* Assessment & Plan Note - Rashi Jerome MD - 09/01/2022 4:29 PM ESTAssociated Problem(s): History of COVID-19 She feels fine but with hx of Covid could have some autonomic issues. -Cont to monitor. * Assessment & Plan Note - Rashi Jerome MD - 09/01/2022 4:20 PM EST Associated Problem(s): Dyslipidemia LDL at target. - Cont zetia - Cont crestor 20 mg daily; check lipids yearly - Cont Vascepa. -Cont lifestyle mgt given elev TG; if much higher over time, consider Tricor * Assessment & Plan Note - Rashi Jerome MD - 09/01/2022 4:15 PM EST Associated Problem(s): Syncope and collapse Etiology not clear. But some Sxs suspicious for orthostatic hypotension. Multiple CRF. -DC hydrochlorothiazide -Ck echo -Followup with SEBASTIAN in a few weeks, if still having Sxs, consider 14 d EM. * Assessment & Plan Note - Rashi eJrome MD - 09/01/2022 1:23 PM EST Associated Problem(s): Bilateral carotid artery stenosis Moderate. Coronary risk equivalent. No symptoms. She has a history of right carotid endarterectomy. -Carotid US 04/2023 -Given ASCVD and DM2 consider add SGLT2i * Assessment & Plan Note - Rashi Jerome MD - 09/01/2022 1:22 PM EST Associated Problem(s): Essential hypertension Stable in office value. New syncope. -Continue Lopressor, losartan, Norvasc. -DC HCTZ * Assessment & Plan Note - Rashi Jerome MD - 09/01/2022 1:22 PM EST Associated Problem(s): Palpitations Notices this at night. Minimal. But felt a little bit more recently. -Continue lopressor. -If continues then would check EM documented in this [facility]01-16-2023 Evaluation + Plan note* Assessment & Plan Note - Rashi Jerome MD - 09/01/2022 4:20 PM EST Associated Problem(s): Dyslipidemia LDL at target. - Cont zetia - Cont crestor 20 mg daily; check lipids yearly - Cont Vascepa. -Cont lifestyle mgt given elev TG; if much higher over time, consider Tricor [facility] [id number] Evaluation + Plan note* Assessment & Plan Note - Rashi Jerome MD - 09/01/2022 4:15 PM ESTAssociated Problem(s): Syncope and collapse Etiology not clear. But some Sxs suspicious for orthostatic hypotension. Multiple CRF. -DC hydrochlorothiazide -Ck echo -Followup with SEBASTIAN in a few weeks, if still having Sxs, consider 14 d EM. [facility] [id number] History of Present illness Narrative* Rashi Jerome MD - 09/01/2022 3:15 PM EST Images from the original note were not included. [address] [facility] [address] Dept: [phone] Dept Loc: [phone] Visit type: Established : 1945 Reason for Visit: Follow-up Assessment and Plan 1. Syncope and collapse Assessment & Plan: Etiology not clear. But some Sxs suspicious for orthostatic hypotension. Multiple CRF. -DC hydrochlorothiazide -Ck echo -Followup with SEBASTIAN in a few weeks, if still having Sxs, consider 14 d EM. Orders: - Transthoracic echocardiogram (TTE) complete with contrast, bubble, strain, and 3D PRN - perflutren lipid microspheres (Definity) injection 1.65 mg; 1.65 mg, IntraVENous, IMG once PRN, other, Suboptimal echo image, Starting on Thu09/01/22 at 1611, For 1 dose, CV Procedural MedicationsAdminister up to 1.65 mg via slow IVP for suboptimal echocardiogram enhancement. May administer a calculated dose or diluted 8.5 mL of 0.9% sodium chloride for a total volume of 10 mL. May administer as divided doses to reach optimal image enhancement 2. Palpitations Assessment & Plan: Notices this at night. Minimal. But felt a little bit more recently. -Continue lopressor. -If continues then would check EM Orders: - ECG 12 lead - Transthoracic echocardiogram (TTE) complete with contrast, bubble, strain, and 3D PRN - perflutren lipid microspheres (Definity) injection 1.65 mg; 1.65 mg, IntraVENous, IMG once PRN, other, Suboptimal echo image, Starting on Thu09/01/22 at 1611, For 1 dose, CV Procedural MedicationsAdminister up to 1.65 mg via slow IVP for suboptimal echocardiogram enhancement. May administer a calculated dose or diluted 8.5 mL of 0.9% sodium chloride for a total volume of 10 mL. May administer as divided doses to reach optimal image enhancement 3. Essential hypertension Assessment & Plan: Stable in office value. New syncope. -Continue Lopressor, losartan, Norvasc. -DC HCTZ Orders: - Transthoracic echocardiogram (TTE) complete with contrast, bubble, strain, and 3D PRN - perflutren lipid microspheres (Definity) injection 1.65 mg; 1.65 mg, IntraVENous, IMG once PRN, other, Suboptimal echo image, Starting on Thu09/01/22 at 1611, For 1 dose, CV Procedural MedicationsAdminister up to 1.65 mg via slow IVP for suboptimal echocardiogram enhancement. May administer a calculated dose or diluted 8.5 mL of 0.9% sodium chloride for a total volume of 10 mL. May administer as divided doses to reach optimal image enhancement 4. Bilateral carotid artery stenosis Assessment & Plan: Moderate. Coronary risk equivalent. No symptoms. She has a history of right carotid endarterectomy. -Carotid US 04/2023 -Given ASCVD and DM2 consider add SGLT2i 5. Dyslipidemia Assessment & Plan: LDL at target. - Cont zetia - Cont crestor 20 mg daily; check lipids yearly - Cont Vascepa. -Cont lifestyle mgt given elev TG; if much higher over time, consider Tricor 6. History of COVID-19 Assessment & Plan: She feels fine but with hx of Covid could have some autonomic issues. -Cont to monitor. Follow up in about 3 weeks (around 09/22/2022) for SEBASTIAN. Subjective Hx of carotid dz and CEA. She has no hx of known cardiac disease. She reports her diabetes is reasonably well-controlled and lab work done recently shows a hemoglobin A1c less than 7. She has some peripheral neuropathy with this diagnosis but otherwise it is managed adequately with oral therapy. Carotid US which showed bilateral stenosis but non-severe 2021. She also has an echo 2019which showed preserved EF 65% and no significant valve disease. Currently: Event 07/30/2022. At grocery store. As she was checking out standing, had syncope. Paramedics came.I checked out ok when she was in the back of the ambulance. She told them she was ok and did not go to the hospital. She remembers thinking she was not feeling well and just needed to finish scanning her items and planned to sit down but did not get a chance to do that. At other times, she notes that she is ok in stores for a short time until her back starts to hurt and legs become numb, tingly. If she waits too long her symptoms worsen and she can also feel occasionally dizzy. So she feels as if she has to time herself when she is out shopping. This happened prior to her syncopal event after a longer than planned period being in the store. As she was checking out, got lightheadeded, hazy vision. Before she knew it, she was down. Next thing she remembers is 3 people standing above her. At other times, such as standing in choir she can feel faint when late in the day has similar lightheadedness and sits down until she feels better. Lost 33 lbs since 10/2021. She thinks she may be eating less. Less appetite. She thinks she is not drinking as much water as she should (but is on a diuretic). She will follow with Renal. Rolando Peters Review of Systems Constitutional: Positive for diaphoresis and fatigue. Negative for activity change, chills and fever. HENT: Negative for nosebleeds and trouble swallowing. Eyes: Positive for visual disturbance (dry eye, occasional blurriness). Negative for discharge. Respiratory: Positive for apnea, shortness of breath and wheezing. Negative for cough and chest tightness. Cardiovascular: Negative for chest pain, palpitations and leg swelling. Gastrointestinal: Negative for abdominal distention, abdominal pain, blood in stool, diarrhea, nausea and vomiting. Endocrine: Negative for cold intolerance and heat intolerance. Genitourinary: Negative for hematuria. Musculoskeletal: Positive for myalgias. Negative for gait problem. Skin: Negative for color change and rash. Neurological: Positive for dizziness, light-headedness and numbness. Negative for seizures, syncope, facial asymmetry, speech difficulty, weakness and headaches. Hematological: Does not bruise/bleed easily. Psychiatric/Behavioral: Positive for dysphoric mood. Allergies Allergen Reactions Isosulfan Blue Anaphylaxis Methylene Blue Sulfa Antibiotics Rash Outpatient Medications Prior to Visit Medication Sig Dispense Refill albuterol 108 (90 Base) MCG/ACT inhaler albuterol sulfate HFA 90 mcg/actuation aerosol inhaler amLODIPine (Norvasc) 10 MG tablet amlodipine 10 mg tablet aspirin 81 MG chewable tablet daily. cholecalciferol (Vitamin D-3) 50 MCG (2000 UT) tablet Take 4,000 Units by mouth daily. citalopram (CeleXA) 20 MG tablet Take 20 mg by mouth daily. ezetimibe (Zetia) 10 MG tablet daily. ibuprofen 600 MG tablet every 8 hours. Jentadueto XR 2.5-1000 MG per 24 hr tablet take 2 tablets by mouth once daily lansoprazole (Prevacid) [address] capsule 1 capsule in the morning. losartan (Cozaar) 100 MG tablet losartan 100 mg tablet metoprolol tartrate (Lopressor) 25 MG tablet metoprolol tartrate 25 mg tablet rosuvastatin (Crestor) 10 MG tablet daily. Vascepa 1 g capsule TAKE 2 CAPSULES BY MOUTH 2 TIMES DAILY 360 capsule 3 hydroCHLOROthiazide (HYDRODiuril) 25 MG tablet hydrochlorothiazide 25 mg tablet Icosapent Ethyl (Vascepa) 1 g capsule Take 2 capsules by mouth 2 times daily. tiotropium (Spiriva) [address] 18 mcg into inhaler and inhale daily. No facility-administered medications prior to visit. Past Medical History: Diagnosis Date Arthritis Asthma Breast cancer (HCC) 1993 Right Breast(Mastectomy) Breast cancer (HCC) 2010 Left Breast(Simple Mastectomy, SLND) Diabetes (HCC) GERD (gastroesophageal reflux disease) High blood pressure Occlusion and stenosis of unspecified carotid artery Pure hypercholesterolemia Social History Tobacco Use Smoking status: Former Types: Cigarettes Quit date: 06/12/1991 Years since quittin.2 Smokeless tobacco: Never Substance Use Topics Alcohol use: Yes Alcohol/week: 0.0 - 14.0 standard drinks Comment: occ Past Surgical History: Procedure Laterality Date CAROTID ENDARTERECTOMY Right 2009 CATARACT EXTRACTION 2006 MASTECTOMY Left 2011 simple/reconstruction/gingivagrapht MASTECTOMY Right 1993 reconstruction (TRAM) TOTAL ABDOMINAL HYSTERECTOMY W/ BILATERAL SALPINGOOPHORECTOMY 1998 TUBAL LIGATION 1979 Family History Problem Relation Name Age of Onset Other (21685) Son neuofibromatosis, BRCA1 positive Heart attack Father High Blood Pressure Father Macular degeneration Father High Blood Pressure Son Cancer Son hairy cell leukemia Ovarian cancer Mother 40.00 Ovarian cancer Mother's Sister 40.00 Neurofibromatosis Son Objective Vitals: 09/01/22 1527 BP: 130/62 BP Location: Left arm Patient Position: Sitting BP Cuff Size: Adult Pulse: 75 Resp: 16 Weight: 155 lb 8 oz (70.5 kg) Height: 5' 7 (1.702 m) Physical Exam Vitals reviewed. Constitutional: General: She is not in acute distress. Appearance: She is well-developed. Neck: Vascular: No JVD. Cardiovascular: Rate and Rhythm: Normal rate and regular rhythm. Heart sounds: Normal heart sounds. No murmur heard. Pulmonary: Effort: Pulmonary effort is normal. Breath sounds: Normal breath sounds. Abdominal: General: Bowel sounds are normal. Palpations: Abdomen is soft. Neurological: Mental Status: She is alert. Psychiatric: Attention and Perception: Attention normal. Behavior: Behavior is cooperative. Data Reviewed and Summarized No results found for: EFBP, PLVEF, LVEFPHYS, LVEF2D, EF Review of tests/labs done/ordered within my specialty: EKG in office: 09/01/22 ECG 12-LEAD 09/01/2022 4:10 PM (Final) Narrative Sinus Rhythm WITHIN NORMAL LIMITS Signed by: Rashi Jerome MD on 09/01/2022 4:10 PM Review of tests/labs done/ordered outside my specialty: Independent interpretation of tests: Rashi Jerome MD documented in this [facility]01-16-2023 Evaluation + Plan note* Assessment & Plan Note - Rashi Jerome MD - 09/01/2022 1:23 PM EST Associated Problem(s): Bilateral carotid artery stenosis Moderate. Coronary risk equivalent. No symptoms. She has a history of right carotid endarterectomy. -Carotid US 04/2023 -Given ASCVD and DM2 consider add SGLT2i [id number] Evaluation + Plan note* Assessment & Plan Note - Rashi Jerome MD - 09/01/2022 1:22 PM ESTAssociated Problem(s): Essential hypertension Stable in office value. New syncope. -Continue Lopressor, losartan, Norvasc. -DC HCTZ [id number] Evaluation + Plan note* Assessment & Plan Note - Rashi Jerome MD - 09/01/2022 1:22 PM ESTAssociated Problem(s): Palpitations Notices this at night. Minimal. But felt a little bit more recently. -Continue lopressor. -If continues then would check EM [facility] [id number] History of Present illness Narrative* She just feels like she has a head cold. * Yesterday she had some congestion and then some rhinorrhea. So far this seems a bit better today. * No fevers or chills or other full body symptoms. * No chest pain or trouble breathing. No abdominal pain. * She has not taken anything so far. * She has taken Paxlovid in the past before. She last tested positive back ion March. At that time she believes all of her symptoms were much worse than it currently is now. * Home COVID testing was positive today. -[facility] Work Phone: [phone]) 119-969212-01-2022 History of Present illness Narrative* Patient explains that she fainted inside grocery store [employer] in July. Also abnormal weight loss. * She has had increased back pain. * She just wanted to sit down and was having difficulty with lightheadedness. She was in the store for a few hours and then went up to the pond register to pay and has had increased pain. She just wanted to sit down and thought she was going to sit down. She did get fuzzy. She came to and three people were standing over her. Paramedics were called. Sugar, bp, ekg were all normal but she did not go to the ER. * Sometimes when she gets up from sitting she gets lightheaded. She states this will happen for seconds. * She has had some mild heartburn but this is better since the last few weeks. * Lately she has been feeling decent. * She does drink about 1/2 bottle of wine daily. She sometimes will drink a martini instead. -[facility] Work Phone: [phone] 497-481012-01-2022 History of Present illness Narrative* Patient explains that she fainted inside grocery store [employer] in July. Also abnormal weight loss. * She has had increased back pain. * She just wanted to sit down and was having difficulty with lightheadedness. She was in the store for a few hours and then went up to the pond register to pay and has had increased pain. She just wanted to sit down and thought she was going to sit down. She did get fuzzy. She came to and three people were standing over her. Paramedics were called. Sugar, bp, ekg were all normal but she did not go to the ER. * Sometimes when she gets up from sitting she gets lightheaded. She states this will happen for seconds. * She has had some mild heartburn but this is better since the last few weeks. * Lately she has been feeling decent. * She does drink about 1/2 bottle of wine daily. She sometimes will drink a martini instead. [facility] Work Phone: [phone]) [phone] History of Present illness NarrativePatient states she had cough with chest congestion, nasal drainage, left ear pain since Thursday. Negfor covid. She thinks that this was her normal sinus during the change of season. She denies any fever or chills.-[facility] Work Phone: [phone]) [phone] History of Present illness Narrative* Primary Care Pharmacy Clinical Interventions: * Medication education provided: * Additional monitoring: smbgs * New medication(s) initiated: jentadueto * Medication adherence: assessed * Time Spent on Encounter: 21 - 30 Minutes Pharmacists-[facility] [place] [address] Work Phone: [phone]) [phone] History of Present illness Narrative* Shavon Kerr MD - 05/23/2021 2:23 PM EDT DATE OF SERVICE: 05/20/2021 HISTORY OF PRESENT ILLNESS: This is a 76-year-old female with chief complaint of left middle finger palmar cut. Apparently, she was using scissors to cut the fat off chicken and accidentally cut her left 3rd digit on the palmar side. Since then, it was bleeding, and she cleaned out. It was painful and she just came here to see what is needed to be done. Her pain is 1 out of 10. She has not had a tetanus shot in the past 10 years. PAST MEDICAL HISTORY: History of diabetes, acid reflux, cholesterol issues. MEDICATIONS: Currently on: 1. Januvia. 2. Losartan. 3. Lansoprazole. 4. Amlodipine. 5. Metoprolol. 6. Ezitamibe. 7. Glimepiride. 8. Citalopram. 9. Lovastatin. 10. Rosuvastatin. 11. Aspirin. 12. Vitamin D3. ALLERGIES: SULFA. REVIEW OF SYSTEMS: Just the left 3rd digit pain. No fever. No chest pain. No other associated symptoms. PHYSICAL EXAMINATION: Blood pressure 182/78, pulse 64, respiratory rate 14, temp 98, pulse oximetry 98% on room air, pain 1 out of 10. Patient looks well, in no distress. Left 3rd digit does have a medial portion 0.3-cm V-shaped laceration. It was cleaned and irrigated by myself topically, hemostasis achieved. Dermabond was used to close this wound edge, sterile bandages administered. Flexion and extension are still preserved. No tendinous damage pre-repair and post-repair. DIAGNOSIS: Left 3rd digit laceration, allowed to healed with glue. PLAN: Augmentin was prescribed to prevent secondary infection due to using scissors that were cut into raw chicken. She understands and agrees with the plan. Should there be more concern, she will follow up as needed. TDAP was administered here. Kameron Kerr MD [id number] SSI File#: [id number] END OF DOCUMENT / CHANGE LOG FOLLOWS Last Edited By [employer]. Signed By Shavon Kerr MD #[id number] Shavon Kerr MD #[id number] on 05/27/2021 08:31 ET on 05/27/2021 08:31 ET Revision Number - 2 ^^^ Verified/Reviewed by 05/27/2131 ANA [facility] PATIENT NAME: LORRAINERLOANDO Tierney [address] [place] MEDICAL REC #: [id number] [place] [address] [place] [facility] PHYSICIAN [facility] Chief complaint Narrative - Reported* An interactive audio and video telecommunication system which permits real time communications between the patient (at the originating site) and provider (at the distant site) was utilized to providethis telehealth service. * Verbal consent was requested and obtained from ROLANDO PETERS on this date, 03/20/2021 01:00 PM , fora telehealth visit. * Fever [facility] Work Phone: [phone] History of Present illness Narrative* Pt had chills last night * Associated w/ fever 101.6 at 1 AM today * Fever this morning 101.5 * Headache * Muscle aches * About 1.5 weeks she was around a friend who did not have COVID vaccine * Today at 2 pm she had a COVID test done at [facility] - pt was informed that it will take 2-5 days toget results back * Denies dyspnea * Denies chest pain * Denies loss of taste or smell * Denies diarrhea [facility] Work Phone: Evaluation note* Diagnosis Occlusion and stenosis of bilateral carotid arteries Bilateral carotid artery stenosis Occlusion and stenosis of multiple and bilateral precerebral arteries without mention of cerebral infarction documented in this encounter [employer] Work Phone: Evaluation note* Diagnosis Occlusion and stenosis of bilateral carotid arteries Bilateral carotid artery stenosis Occlusion and stenosis of multiple and bilateral precerebral arteries without mention of cerebral infarction documented in this encounter [employer] Work Phone: Evaluation note* Diagnosis 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 with 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, without long-term current use of insulin ([facility]/HCC) documented in this encounter [facility] Work Phone: Evaluation note* Diagnosis Malignant neoplasm of left breast in female, estrogen receptor negative, unspecified site of breast (HCC) 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 Weight loss Loss of weight [facility]* Diagnosis Malignant neoplasm of left breast in female, estrogen receptor negative, unspecified site of breast (HCC)- Primary [facility]* Diagnosis Bilateral carotid artery stenosis Occlusion and stenosis of carotid artery without mention of cerebral infarction [facility]* Diagnosis Malignant neoplasm of left breast in female, estrogen receptor negative, unspecified site of breast (HCC) [facility]* Diagnosis Malignant neoplasm of left breast in female, estrogen receptor negative, unspecified site of breast (HCC)- Primary [facility] Diagnosis Bilateral carotid artery stenosis- Primary Occlusion and stenosis of carotid artery without mention of cerebral infarction Essential hypertension Unspecified essential hypertension Dyslipidemia Other and unspecified hyperlipidemia CKD stage G2/A3, 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/g documented in this encounter [facility]* Diagnosis Sciatica of right side- Primary Acute non-recurrent frontal sinusitis documented in this encounter [facility] Work Phone: Evaluation note* Diagnosis Malignant neoplasm of left breast in female, estrogen receptor negative, unspecified site of breast (HCC)- Primary Lung nodules Other diseases of lung, not elsewhere classified [facility] Diagnosis 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 without complication, with long-term current use of insulin (CMS/HCC)- Primary documented in this encounter [facility] Work Phone: Evaluation note* Diagnosis Malignant neoplasm of left breast in female, estrogen receptor negative, unspecified site of breast (HCC) (HCC) Lung nodules Other diseases of lung, not elsewhere classified [facility] Diagnosis Malignant neoplasm of left breast in female, estrogen receptor negative, unspecified site of breast (HCC) (HCC)- Primary Lung nodules Other diseases of lung, not elsewhere classified documented in this encounter [facility]* Diagnosis Lung nodules- Primary Other diseases of lung, not elsewhere classified Tobacco use Malignant neoplasm of left breast in female, estrogen receptor negative, unspecified site of breast (HCC) (HCC) CRUZ (dyspnea on exertion) Other dyspnea and respiratory abnormality INGA (obstructive sleep apnea) Obstructive sleep apnea (adult) (pediatric) Other nonspecific abnormal finding of lung field documented in this encounter [facility] note* Diagnosis Other nonspecific abnormal finding of lung field Other nonspecific abnormal finding of lung field- Primary Other nonspecific abnormal finding of lung field documented in this encounter [facility]* Diagnosis Other nonspecific abnormal finding of lung field Other nonspecific abnormal finding of lung field- Primary Other nonspecific abnormal finding of lung field documented in this encounter [facility] note* Diagnosis Other nonspecific abnormal finding of lung field Other nonspecific abnormal finding of lung field- Primary Other nonspecific abnormal finding of lung field documented in this encounter [facility]* Diagnosis Lung nodules- Primary Other diseases of lung, not elsewhere classified Tobacco use Malignant neoplasm of left breast in female, estrogen receptor negative, unspecified site of breast (HCC) (HCC) CRUZ (dyspnea on exertion) Other dyspnea and respiratory abnormality INGA (obstructive sleep apnea) Obstructive sleep apnea (adult) (pediatric) documented in this encounter [facility]* Diagnosis Lung nodules- Primary Other diseases of lung, not elsewhere classified Tobacco use Malignant neoplasm of left breast in female, estrogen receptor negative, unspecified site of breast (HCC) (HCC) CRUZ (dyspnea on exertion) Other dyspnea and respiratory abnormality INGA (obstructive sleep apnea) Obstructive sleep apnea (adult) (pediatric) [facility]* Diagnosis Other nonspecific abnormal finding of lung field- Primary Lung nodule Other diseases of lung, not elsewhere classified Pneumothorax Pneumothorax documented in this encounter [facility]* Diagnosis Acute maxillary sinusitis, recurrence not specified- Primary Primary hypertension Unspecified essential hypertension documented in this encounter [facility] Work Phone: Evaluation note* Diagnosis Organizing pneumonia (CMS/HCC) (HCC)- Primary Pneumonia, organism unspecified CRUZ (dyspnea on exertion) Other dyspnea and respiratory abnormality History of tobacco use Personal history of tobacco use, presenting hazards to health Pulmonary nodules Other diseases of lung, not elsewhere classified documented in this encounter [facility]* Diagnosis Organized pneumonia (CMS/HCC)- Primary Pneumonia, organism unspecified 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 without complication, with long-term current use of insulin (CMS/HCC) Lung nodule seen on imaging study Abnormal weight loss Loss of weight documented in this encounter [facility] Work Phone: Evaluation note* Diagnosis Tobacco use CRUZ (dyspnea on exertion) Other dyspnea and respiratory abnormality [facility]* Diagnosis Pulmonary emphysema, unspecified emphysema type (HCC)- Primary [facility]* Diagnosis Organizing pneumonia (CMS/HCC) (HCC) Pneumonia, organism unspecified Pulmonary nodules Other diseases of lung, not elsewhere classified documented in this encounter [facility] note* Diagnosis Organizing pneumonia (CMS/HCC) (HCC)- Primary Pneumonia, organism unspecified Pulmonary emphysema, unspecified emphysema type (HCC) History of tobacco use Personal history of tobacco use, presenting hazards to health [facility] Diagnosis Chronic obstructive pulmonary disease, unspecified COPD type (HCC)- Primary documented in this encounter [facility]* Diagnosis Pulmonary nodules- Primary Other diseases of lung, not elsewhere classified documented in this encounter [facility]* Diagnosis Left ankle swelling Effusion of ankle and foot joint documented in this encounter [facility] Work Phone: Evaluation note* Diagnosis Submandibular swelling- Primary Right lower quadrant pain Dyspnea, unspecified type documented in this encounter [facility] Work Phone: Evaluation note* Diagnosis Atrial fibrillation with RVR (HCC)- Primary Atrial fibrillation with RVR (HCC) Acute heart failure, unspecified heart failure type (HCC) documented in this encounter [facility]* Diagnosis Left ankle swelling- Primary Effusion of ankle and foot joint 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 with 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, without long-term current use of insulin (Multi) Primary hypertension Unspecified essential hypertension Left ankle swelling Effusion of ankle and foot joint documented in this encounter [facility] Work Phone: Evaluation note* Diagnosis PAF (paroxysmal atrial fibrillation) (HCC)- Primary Atrial fibrillation On continuous oral anticoagulation On amiodarone therapy Elevated LFTs Other abnormal blood chemistry Chronic systolic heart failure (HCC) Chronic systolic heart failure Essential hypertension Unspecified essential hypertension Bilateral carotid artery stenosis Occlusion and stenosis of carotid artery without mention of cerebral infarction Dyslipidemia Other and unspecified hyperlipidemia CKD stage G2/A3, 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/g INGA (obstructive sleep apnea) Obstructive sleep apnea (adult) (pediatric) Obstructive sleep apnea syndrome Obstructive sleep apnea (adult) (pediatric) documented in this encounter [facility] note* Diagnosis PAF (paroxysmal atrial fibrillation) (HCC)- Primary Atrial fibrillation documented in this encounter [facility]Evaluation note* Diagnosis Malignant neoplasm of left breast in female, estrogen receptor negative, unspecified site of breast (HCC) documented in this encounter [facility]Evaluation note* Diagnosis 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)- Primary Atrial fibrillation, unspecified type (Multi) 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 without complication, with long-term current use of insulin (Multi) SOB (shortness of breath) Shortness of breath documented in this encounter [facility] Work Phone: Evaluation note* Diagnosis HFrEF (heart failure with reduced ejection fraction) (Multi)- Primary Atrial fibrillation with RVR (Multi) Sialadenitis Sialoadenitis Elevated liver enzymes Other nonspecific abnormal serum enzyme levels documented in this encounter [facility] Work Phone: Evaluation note* Diagnosis PAF (paroxysmal atrial fibrillation) (HCC) Atrial fibrillation documented in this encounter [facility] [employer]ShelterEvaluation note* Diagnosis PAF (paroxysmal atrial fibrillation) (HCC)- Primary Atrial fibrillation On continuous oral anticoagulation On amiodarone therapy Chronic systolic heart failure (HCC) Chronic systolic heart failure Elevated LFTs Other abnormal blood chemistry Essential hypertension Unspecified essential hypertension Bilateral carotid artery stenosis Occlusion and stenosis of carotid artery without mention of cerebral infarction Dyslipidemia Other and unspecified hyperlipidemia CKD stage G2/A3, 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/g Obstructive sleep apnea syndrome Obstructive sleep apnea (adult) (pediatric) documented in this encounter [facility]ShelterEvaluation note* Diagnosis Chronic systolic heart failure (HCC) Chronic systolic heart failure documented in this encounter [facility]ShelterEvaluation note* Diagnosis Pulmonary nodules Other diseases of lung, not elsewhere classified documented in this encounter [facility] Zeristaaluation note* Diagnosis Dyslipidemia Other and unspecified hyperlipidemia documented in this encounter [facility]ShelterEvaluation note* Diagnosis PAF (paroxysmal atrial fibrillation) (HCC)- Primary Atrial fibrillation documented in this encounter [facility]ShelterEvaluation note* Diagnosis Persistent atrial fibrillation (HCC)- Primary Atrial fibrillation Persistent atrial fibrillation (HCC)- Primary Atrial fibrillation documented in this encounter [facility] [employer]helterEvaluation note* Diagnosis Persistent atrial fibrillation (HCC)- Primary Atrial fibrillation Bilateral carotid artery stenosis Occlusion and stenosis of carotid artery without mention of cerebral infarction Persistent atrial fibrillation (HCC) Atrial fibrillation documented in this encounter [facility] [employer]hel[employer]Evaluation note* Diagnosis Persistent atrial fibrillation (HCC)- Primary Atrial fibrillation Persistent atrial fibrillation (HCC) Atrial fibrillation documented in this encounter [facility] [employer]helterEvaluation note* Diagnosis PAF (paroxysmal atrial fibrillation) (HCC) Atrial fibrillation Chronic systolic heart failure (HCC) Chronic systolic heart failure INGA (obstructive sleep apnea) Obstructive sleep apnea (adult) (pediatric) documented in this encounter [facility]helterEvaluation note* Diagnosis Organizing pneumonia (CMS/HCC) (HCC) Pneumonia, organism unspecified History of tobacco use Personal history of tobacco use, presenting hazards to health Pulmonary nodules Other diseases of lung, not elsewhere classified documented in this encounter [facility]Evaluation note* Diagnosis Persistent atrial fibrillation (HCC)- Primary Atrial fibrillation 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) Essential hypertension Unspecified essential hypertension documented in this encounter [facility]Evaluation note* Diagnosis Syncope and collapse- Primary Palpitations Essential hypertension Unspecified essential hypertension Bilateral carotid artery stenosis Occlusion and stenosis of carotid artery without mention of cerebral infarction Dyslipidemia Other and unspecified hyperlipidemia History of COVID-19 Syncope and collapse- Primary Palpitations Essential hypertension Unspecified essential hypertension Bilateral carotid artery stenosis Occlusion and stenosis of carotid artery without mention of cerebral infarction Dyslipidemia Other and unspecified hyperlipidemia History of COVID-19 Orthostatic hypotension Bilateral carotid artery stenosis- Primary Occlusion and stenosis of carotid artery without mention of cerebral infarction Essential hypertension Unspecified essential hypertension Dyslipidemia Other and unspecified hyperlipidemia CKD stage G2/A3, 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/g PAF (paroxysmal atrial fibrillation) (HCC)- Primary Atrial fibrillation On continuous oral anticoagulation On amiodarone therapy Elevated LFTs Other abnormal blood chemistry Chronic systolic heart failure (HCC) Chronic systolic heart failure Essential hypertension Unspecified essential hypertension Bilateral carotid artery stenosis Occlusion and stenosis of carotid artery without mention of cerebral infarction Dyslipidemia Other and unspecified hyperlipidemia CKD stage G2/A3, 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/g INAG (obstructive sleep apnea) Obstructive sleep apnea (adult) (pediatric) Obstructive sleep apnea syndrome Obstructive sleep apnea (adult) (pediatric) PAF (paroxysmal atrial fibrillation) (HCC)- Primary Atrial fibrillation On continuous oral anticoagulation On amiodarone therapy Chronic systolic heart failure (HCC) Chronic systolic heart failure Elevated LFTs Other abnormal blood chemistry Essential hypertension Unspecified essential hypertension Bilateral carotid artery stenosis Occlusion and stenosis of carotid artery without mention of cerebral infarction Dyslipidemia Other and unspecified hyperlipidemia CKD stage G2/A3, 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/g Obstructive sleep apnea syndrome Obstructive sleep apnea (adult) (pediatric) Persistent atrial fibrillation (HCC)- Primary Atrial fibrillation 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) Essential hypertension Unspecified essential hypertension Organizing pneumonia (CMS/HCC) (HCC)- Primary Pneumonia, organism unspecified Pulmonary infiltrates Pulmonary eosinophilia Pulmonary nodules Other diseases of lung, not elsewhere classified Chronic obstructive pulmonary disease, unspecified COPD type ([facility]) History of tobacco use Personal history of tobacco use, presenting hazards to health [facility]* Diagnosis Syncope and collapse- Primary Palpitations Essential hypertension Unspecified essential hypertension Bilateral carotid artery stenosis Occlusion and stenosis of carotid artery without mention of cerebral infarction Dyslipidemia Other and unspecified hyperlipidemia History of COVID-19 Syncope and collapse- Primary Palpitations Essential hypertension Unspecified essential hypertension Bilateral carotid artery stenosis Occlusion and stenosis of carotid artery without mention of cerebral infarction Dyslipidemia Other and unspecified hyperlipidemia History of COVID-19 Orthostatic hypotension Bilateral carotid artery stenosis- Primary Occlusion and stenosis of carotid artery without mention of cerebral infarction Essential hypertension Unspecified essential hypertension Dyslipidemia Other and unspecified hyperlipidemia CKD stage G2/A3, 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/g PAF (paroxysmal atrial fibrillation) (HCC)- Primary Atrial fibrillation On continuous oral anticoagulation On amiodarone therapy Elevated LFTs Other abnormal blood chemistry Chronic systolic heart failure (HCC) Chronic systolic heart failure Essential hypertension Unspecified essential hypertension Bilateral carotid artery stenosis Occlusion and stenosis of carotid artery without mention of cerebral infarction Dyslipidemia Other and unspecified hyperlipidemia CKD stage G2/A3, 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/g INGA (obstructive sleep apnea) Obstructive sleep apnea (adult) (pediatric) Obstructive sleep apnea syndrome Obstructive sleep apnea (adult) (pediatric) PAF (paroxysmal atrial fibrillation) (HCC)- Primary Atrial fibrillation On continuous oral anticoagulation On amiodarone therapy Chronic systolic heart failure (HCC) Chronic systolic heart failure Elevated LFTs Other abnormal blood chemistry Essential hypertension Unspecified essential hypertension Bilateral carotid artery stenosis Occlusion and stenosis of carotid artery without mention of cerebral infarction Dyslipidemia Other and unspecified hyperlipidemia CKD stage G2/A3, 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/g Obstructive sleep apnea syndrome Obstructive sleep apnea (adult) (pediatric) Persistent atrial fibrillation (HCC)- Primary Atrial fibrillation Heart failure with mid-range ejection fraction ([facility]) Essential hypertension Unspecified essential hypertension INGA (obstructive sleep apnea) Obstructive sleep apnea (adult) (pediatric) documented in [facility]* Diagnosis Syncope and collapse- Primary Palpitations Essential hypertension Unspecified essential hypertension Bilateral carotid artery stenosis Occlusion and stenosis of carotid artery without mention of cerebral infarction Dyslipidemia Other and unspecified hyperlipidemia History of COVID-19 Syncope and collapse- Primary Palpitations Essential hypertension Unspecified essential hypertension Bilateral carotid artery stenosis Occlusion and stenosis of carotid artery without mention of cerebral infarction Dyslipidemia Other and unspecified hyperlipidemia History of COVID-19 Orthostatic hypotension Bilateral carotid artery stenosis- Primary Occlusion and stenosis of carotid artery without mention of cerebral infarction Essential hypertension Unspecified essential hypertension Dyslipidemia Other and unspecified hyperlipidemia CKD stage G2/A3, 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/g PAF (paroxysmal atrial fibrillation) (HCC)- Primary Atrial fibrillation On continuous oral anticoagulation On amiodarone therapy Elevated LFTs Other abnormal blood chemistry Chronic systolic heart failure (HCC) Chronic systolic heart failure Essential hypertension Unspecified essential hypertension Bilateral carotid artery stenosis Occlusion and stenosis of carotid artery without mention of cerebral infarction Dyslipidemia Other and unspecified hyperlipidemia CKD stage G2/A3, 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/g INGA (obstructive sleep apnea) Obstructive sleep apnea (adult) (pediatric) Obstructive sleep apnea syndrome Obstructive sleep apnea (adult) (pediatric) PAF (paroxysmal atrial fibrillation) (HCC)- Primary Atrial fibrillation On continuous oral anticoagulation On amiodarone therapy Chronic systolic heart failure (HCC) Chronic systolic heart failure Elevated LFTs Other abnormal blood chemistry Essential hypertension Unspecified essential hypertension Bilateral carotid artery stenosis Occlusion and stenosis of carotid artery without mention of cerebral infarction Dyslipidemia Other and unspecified hyperlipidemia CKD stage G2/A3, 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/g Obstructive sleep apnea syndrome Obstructive sleep apnea (adult) (pediatric) Persistent atrial fibrillation (HCC)- Primary Atrial fibrillation 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) Essential hypertension Unspecified essential hypertension INGA (obstructive sleep apnea)- Primary Obstructive sleep apnea (adult) (pediatric) Aspiration into airway, initial encounter documented [facility] this [facility]* Diagnosis Syncope and collapse- Primary Palpitations Essential hypertension Unspecified essential hypertension Bilateral carotid artery stenosis Occlusion and stenosis of carotid artery without mention of cerebral infarction Dyslipidemia Other and unspecified hyperlipidemia History of COVID-19 Syncope and collapse- Primary Palpitations Essential hypertension Unspecified essential hypertension Bilateral carotid artery stenosis Occlusion and stenosis of carotid artery without mention of cerebral infarction Dyslipidemia Other and unspecified hyperlipidemia History of COVID-19 Orthostatic hypotension Bilateral carotid artery stenosis- Primary Occlusion and stenosis of carotid artery without mention of cerebral infarction Essential hypertension Unspecified essential hypertension Dyslipidemia Other and unspecified hyperlipidemia CKD stage G2/A3, 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/g PAF (paroxysmal atrial fibrillation) (HCC)- Primary Atrial fibrillation On continuous oral anticoagulation On amiodarone therapy Elevated LFTs Other abnormal blood chemistry Chronic systolic heart failure (HCC) Chronic systolic heart failure Essential hypertension Unspecified essential hypertension Bilateral carotid artery stenosis Occlusion and stenosis of carotid artery without mention of cerebral infarction Dyslipidemia Other and unspecified hyperlipidemia CKD stage G2/A3, 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/g INGA (obstructive sleep apnea) Obstructive sleep apnea (adult) (pediatric) Obstructive sleep apnea syndrome Obstructive sleep apnea (adult) (pediatric) PAF (paroxysmal atrial fibrillation) (HCC)- Primary Atrial fibrillation On continuous oral anticoagulation On amiodarone therapy Chronic systolic heart failure (HCC) Chronic systolic heart failure Elevated LFTs Other abnormal blood chemistry Essential hypertension Unspecified essential hypertension Bilateral carotid artery stenosis Occlusion and stenosis of carotid artery without mention of cerebral infarction Dyslipidemia Other and unspecified hyperlipidemia CKD stage G2/A3, 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/g Obstructive sleep apnea syndrome Obstructive sleep apnea (adult) (pediatric) Persistent atrial fibrillation (HCC)- Primary Atrial fibrillation 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) Essential hypertension Unspecified essential hypertension Aspiration into airway, initial encounter documented in this encounter [facility]Evaluation note* Diagnosis Syncope and collapse- Primary Palpitations Essential hypertension Unspecified essential hypertension Bilateral carotid artery stenosis Occlusion and stenosis of carotid artery without mention of cerebral infarction Dyslipidemia Other and unspecified hyperlipidemia History of COVID-19 Syncope and collapse- Primary Palpitations Essential hypertension Unspecified essential hypertension Bilateral carotid artery stenosis Occlusion and stenosis of carotid artery without mention of cerebral infarction Dyslipidemia Other and unspecified hyperlipidemia History of COVID-19 Orthostatic hypotension Bilateral carotid artery stenosis- Primary Occlusion and stenosis of carotid artery without mention of cerebral infarction Essential hypertension Unspecified essential hypertension Dyslipidemia Other and unspecified hyperlipidemia CKD stage G2/A3, 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/g PAF (paroxysmal atrial fibrillation) (HCC)- Primary Atrial fibrillation On continuous oral anticoagulation On amiodarone therapy Elevated LFTs Other abnormal blood chemistry Chronic systolic heart failure (HCC) Chronic systolic heart failure Essential hypertension Unspecified essential hypertension Bilateral carotid artery stenosis Occlusion and stenosis of carotid artery without mention of cerebral infarction Dyslipidemia Other and unspecified hyperlipidemia CKD stage G2/A3, 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/g INGA (obstructive sleep apnea) Obstructive sleep apnea (adult) (pediatric) Obstructive sleep apnea syndrome Obstructive sleep apnea (adult) (pediatric) PAF (paroxysmal atrial fibrillation) (HCC)- Primary Atrial fibrillation On continuous oral anticoagulation On amiodarone therapy Chronic systolic heart failure (HCC) Chronic systolic heart failure Elevated LFTs Other abnormal blood chemistry Essential hypertension Unspecified essential hypertension Bilateral carotid artery stenosis Occlusion and stenosis of carotid artery without mention of cerebral infarction Dyslipidemia Other and unspecified hyperlipidemia CKD stage G2/A3, 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/g Obstructive sleep apnea syndrome Obstructive sleep apnea (adult) (pediatric) Persistent atrial fibrillation (HCC)- Primary Atrial fibrillation 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) Essential hypertension Unspecified essential hypertension Persistent atrial fibrillation (HCC) Atrial fibrillation 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) Essential hypertension Unspecified essential hypertension documented in this encounter [facility] note* Diagnosis Syncope and collapse- Primary Palpitations Essential hypertension Unspecified essential hypertension Bilateral carotid artery stenosis Occlusion and stenosis of carotid artery without mention of cerebral infarction Dyslipidemia Other and unspecified hyperlipidemia History of COVID-19 Syncope and collapse- Primary Palpitations Essential hypertension Unspecified essential hypertension Bilateral carotid artery stenosis Occlusion and stenosis of carotid artery without mention of cerebral infarction Dyslipidemia Other and unspecified hyperlipidemia History of COVID-19 Orthostatic hypotension Bilateral carotid artery stenosis- Primary Occlusion and stenosis of carotid artery without mention of cerebral infarction Essential hypertension Unspecified essential hypertension Dyslipidemia Other and unspecified hyperlipidemia CKD stage G2/A3, 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/g PAF (paroxysmal atrial fibrillation) (HCC)- Primary Atrial fibrillation On continuous oral anticoagulation On amiodarone therapy Elevated LFTs Other abnormal blood chemistry Chronic systolic heart failure (HCC) Chronic systolic heart failure Essential hypertension Unspecified essential hypertension Bilateral carotid artery stenosis Occlusion and stenosis of carotid artery without mention of cerebral infarction Dyslipidemia Other and unspecified hyperlipidemia CKD stage G2/A3, 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/g INGA (obstructive sleep apnea) Obstructive sleep apnea (adult) (pediatric) Obstructive sleep apnea syndrome Obstructive sleep apnea (adult) (pediatric) PAF (paroxysmal atrial fibrillation) (HCC)- Primary Atrial fibrillation On continuous oral anticoagulation On amiodarone therapy Chronic systolic heart failure (HCC) Chronic systolic heart failure Elevated LFTs Other abnormal blood chemistry Essential hypertension Unspecified essential hypertension Bilateral carotid artery stenosis Occlusion and stenosis of carotid artery without mention of cerebral infarction Dyslipidemia Other and unspecified hyperlipidemia CKD stage G2/A3, 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/g Obstructive sleep apnea syndrome Obstructive sleep apnea (adult) (pediatric) Persistent atrial fibrillation (HCC)- Primary Atrial fibrillation 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) Essential hypertension Unspecified essential hypertension Organizing pneumonia (CMS/HCC) (HCC) Pneumonia, organism unspecified Pulmonary infiltrates Pulmonary eosinophilia Pulmonary nodules Other diseases of lung, not elsewhere classified documented in this encounter [facility]Evaluation note* Diagnosis Healthcare maintenance- Primary Familial hypercholesterolemia Hypertriglyceridemia Pure hyperglyceridemia INGA (obstructive sleep apnea) Obstructive sleep apnea (adult) (pediatric) Primary hypertension Unspecified essential hypertension 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 without complication, with long-term current use of insulin ([facility]) Routine general medical examination at health care facility Routine general medical examination at a health care facility 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, unspecified estrogen receptor status ([facility]) 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 with 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, without long-term current use of insulin ([facility]) documented in this encounter [facility] Work Phone: Evaluation note* Diagnosis Shoulder impingement syndrome, right- Primary documented in this encounter [facility] Work Phone: Evaluation note* Diagnosis Syncope and collapse- Primary Palpitations Essential hypertension Unspecified essential hypertension Bilateral carotid artery stenosis Occlusion and stenosis of carotid artery without mention of cerebral infarction Dyslipidemia Other and unspecified hyperlipidemia History of COVID-19 documented [facility] this encounter [facility]* Diagnosis Syncope and collapse Palpitations Essential hypertension Unspecified essential hypertension documented [facility]* Diagnosis Syncope and collapse- Primary Palpitations Essential hypertension Unspecified essential hypertension Bilateral carotid artery stenosis Occlusion and stenosis of carotid artery without mention of cerebral infarction Dyslipidemia Other and unspecified hyperlipidemia History of COVID-19 Orthostatic hypotension documented in this encounter [facility]* Diagnosis Syncope and collapse- Primary Palpitations Essential hypertension Unspecified essential hypertension Bilateral carotid artery stenosis Occlusion and stenosis of carotid artery without mention of cerebral infarction Dyslipidemia Other and unspecified hyperlipidemia History of COVID-19 Syncope and collapse- Primary Palpitations Essential hypertension Unspecified essential hypertension Bilateral carotid artery stenosis Occlusion and stenosis of carotid artery without mention of cerebral infarction Dyslipidemia Other and unspecified hyperlipidemia History of COVID-19 Orthostatic hypotension Bilateral carotid artery stenosis- Primary Occlusion and stenosis of carotid artery without mention of cerebral infarction Essential hypertension Unspecified essential hypertension Dyslipidemia Other and unspecified hyperlipidemia CKD stage G2/A3, 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/g PAF (paroxysmal atrial fibrillation) ([facility])- Primary Atrial fibrillation On continuous oral anticoagulation On amiodarone therapy Elevated LFTs Other abnormal blood chemistry Chronic systolic heart failure (HCC) Chronic systolic heart failure Essential hypertension Unspecified essential hypertension Bilateral carotid artery stenosis Occlusion and stenosis of carotid artery without mention of cerebral infarction Dyslipidemia Other and unspecified hyperlipidemia CKD stage G2/A3, 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/g INGA (obstructive sleep apnea) Obstructive sleep apnea (adult) (pediatric) Obstructive sleep apnea syndrome Obstructive sleep apnea (adult) (pediatric) PAF (paroxysmal atrial fibrillation) (HCC)- Primary Atrial fibrillation On continuous oral anticoagulation On amiodarone therapy Chronic systolic heart failure (HCC) Chronic systolic heart failure Elevated LFTs Other abnormal blood chemistry Essential hypertension Unspecified essential hypertension Bilateral carotid artery stenosis Occlusion and stenosis of carotid artery without mention of cerebral infarction Dyslipidemia Other and unspecified hyperlipidemia CKD stage G2/A3, 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/g Obstructive sleep apnea syndrome Obstructive sleep apnea (adult) (pediatric) Persistent atrial fibrillation (HCC)- Primary Atrial fibrillation Heart failure with mid-range ejection fraction ([facility]) Essential hypertension Unspecified essential hypertension PAF (paroxysmal atrial fibrillation) ([facility]) Atrial fibrillation On continuous oral anticoagulation documented in [facility]* Diagnosis Pulmonary nodules- Primary Other diseases of lung, not elsewhere classified Organizing pneumonia ([facility]/HCC) ([facility]) Pneumonia, organism unspecified History of tobacco use Personal history of tobacco use, presenting hazards to health Chronic obstructive pulmonary disease, unspecified COPD type ([facility]) documented in this encounter [facility]* Diagnosis Syncope and collapse- Primary Palpitations Essential hypertension Unspecified essential hypertension Bilateral carotid artery stenosis Occlusion and stenosis of carotid artery without mention of cerebral infarction Dyslipidemia Other and unspecified hyperlipidemia History of COVID-19 Syncope and collapse- Primary Palpitations Essential hypertension Unspecified essential hypertension Bilateral carotid artery stenosis Occlusion and stenosis of carotid artery without mention of cerebral infarction Dyslipidemia Other and unspecified hyperlipidemia History of COVID-19 Orthostatic hypotension Bilateral carotid artery stenosis- Primary Occlusion and stenosis of carotid artery without mention of cerebral infarction Essential hypertension Unspecified essential hypertension Dyslipidemia Other and unspecified hyperlipidemia CKD stage G2/A3, 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/g PAF (paroxysmal atrial fibrillation) (HCC)- Primary Atrial fibrillation On continuous oral anticoagulation On amiodarone therapy Elevated LFTs Other abnormal blood chemistry Chronic systolic heart failure (HCC) Chronic systolic heart failure Essential hypertension Unspecified essential hypertension Bilateral carotid artery stenosis Occlusion and stenosis of carotid artery without mention of cerebral infarction Dyslipidemia Other and unspecified hyperlipidemia CKD stage G2/A3, 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/g INGA (obstructive sleep apnea) Obstructive sleep apnea (adult) (pediatric) Obstructive sleep apnea syndrome Obstructive sleep apnea (adult) (pediatric) PAF (paroxysmal atrial fibrillation) (HCC)- Primary Atrial fibrillation On continuous oral anticoagulation On amiodarone therapy Chronic systolic heart failure (HCC) Chronic systolic heart failure Elevated LFTs Other abnormal blood chemistry Essential hypertension Unspecified essential hypertension Bilateral carotid artery stenosis Occlusion and stenosis of carotid artery without mention of cerebral infarction Dyslipidemia Other and unspecified hyperlipidemia CKD stage G2/A3, 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/g Obstructive sleep apnea syndrome Obstructive sleep apnea (adult) (pediatric) Persistent atrial fibrillation (HCC)- Primary Atrial fibrillation 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) Essential hypertension Unspecified essential hypertension Persistent atrial fibrillation (HCC)- Primary Atrial fibrillation 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) Essential hypertension Unspecified essential hypertension [facility]* Diagnosis Syncope and collapse- Primary Palpitations Essential hypertension Unspecified essential hypertension Bilateral carotid artery stenosis Occlusion and stenosis of carotid artery without mention of cerebral infarction Dyslipidemia Other and unspecified hyperlipidemia History of COVID-19 Syncope and collapse- Primary Palpitations Essential hypertension Unspecified essential hypertension Bilateral carotid artery stenosis Occlusion and stenosis of carotid artery without mention of cerebral infarction Dyslipidemia Other and unspecified hyperlipidemia History of COVID-19 Orthostatic hypotension Bilateral carotid artery stenosis- Primary Occlusion and stenosis of carotid artery without mention of cerebral infarction Essential hypertension Unspecified essential hypertension Dyslipidemia Other and unspecified hyperlipidemia CKD stage G2/A3, 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/g PAF (paroxysmal atrial fibrillation) (HCC)- Primary Atrial fibrillation On continuous oral anticoagulation On amiodarone therapy Elevated LFTs Other abnormal blood chemistry Chronic systolic heart failure (HCC) Chronic systolic heart failure Essential hypertension Unspecified essential hypertension Bilateral carotid artery stenosis Occlusion and stenosis of carotid artery without mention of cerebral infarction Dyslipidemia Other and unspecified hyperlipidemia CKD stage G2/A3, 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/g INGA (obstructive sleep apnea) Obstructive sleep apnea (adult) (pediatric) Obstructive sleep apnea syndrome Obstructive sleep apnea (adult) (pediatric) PAF (paroxysmal atrial fibrillation) (HCC)- Primary Atrial fibrillation On continuous oral anticoagulation On amiodarone therapy Chronic systolic heart failure (HCC) Chronic systolic heart failure Elevated LFTs Other abnormal blood chemistry Essential hypertension Unspecified essential hypertension Bilateral carotid artery stenosis Occlusion and stenosis of carotid artery without mention of cerebral infarction Dyslipidemia Other and unspecified hyperlipidemia CKD stage G2/A3, 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/g Obstructive sleep apnea syndrome Obstructive sleep apnea (adult) (pediatric) Persistent atrial fibrillation (HCC)- Primary Atrial fibrillation 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) Essential hypertension Unspecified essential hypertension Organizing pneumonia (CMS/HCC) (HCC)- Primary Pneumonia, organism unspecified Pleural effusion Unspecified pleural effusion Pulmonary nodules Other diseases of lung, not elsewhere classified Asthma-COPD overlap syndrome (HCC) Tobacco use documented in this encounter [facility]* Diagnosis Debility- Primary Unspecified debility Healthcare maintenance Familial hypercholesterolemia Hypertriglyceridemia Pure hyperglyceridemia INGA (obstructive sleep apnea) Obstructive sleep apnea (adult) (pediatric) Primary hypertension Unspecified essential hypertension 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 without complication, with long-term current use of insulin (Multi) Routine general medical examination at [facility] care facility Routine general medical examination at a [facility] care facility 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, unspecified estrogen receptor status 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 with 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, without long-term current use of insulin Vasovagal syncope Syncope and collapse Acute cough Left shoulder pain, unspecified chronicity 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 without complication, with long-term current use of insulin (Multi)- Primary Abnormal weight loss Loss of weight Healthcare maintenance- Primary Familial hypercholesterolemia Hypertriglyceridemia Pure hyperglyceridemia Primary hypertension Unspecified essential hypertension 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 with 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, unspecified whether retirement insulin use 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) 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, unspecified estrogen receptor status Anxiety Anxiety state, unspecified Gout, unspecified cause, unspecified chronicity, unspecified site Encounter for screening mammogram for breast cancer Routine general medical examination at [facility] care facility Routine general medical examination at a [facility] care facility Cardiac risk counseling [Z71.89] Advance directive discussed with patient [Z71.89] Encounter for screening for other disorder [Z13.89] Chest pain, unspecified type- Primary Dyspnea, unspecified type Persistent atrial fibrillation (Multi) Atrial fibrillation 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) Stage 3a chronic kidney disease (Multi) Acute heart failure, unspecified heart failure type Malignant neoplasm of left breast in female, estrogen receptor negative, unspecified site of breast documented in this encounter [facility] Work Phone: Evaluation note* Diagnosis Syncope and collapse- Primary Palpitations Essential hypertension Unspecified essential hypertension Bilateral carotid artery stenosis Occlusion and stenosis of carotid artery without mention of cerebral infarction Dyslipidemia Other and unspecified hyperlipidemia History of COVID-19 Syncope and collapse- Primary Palpitations Essential hypertension Unspecified essential hypertension Bilateral carotid artery stenosis Occlusion and stenosis of carotid artery without mention of cerebral infarction Dyslipidemia Other and unspecified hyperlipidemia History of COVID-19 Orthostatic hypotension Bilateral carotid artery stenosis- Primary Occlusion and stenosis of carotid artery without mention of cerebral infarction Essential hypertension Unspecified essential hypertension Dyslipidemia Other and unspecified hyperlipidemia CKD stage G2/A3, 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/g PAF (paroxysmal atrial fibrillation) (HCC)- Primary Atrial fibrillation On continuous oral anticoagulation On amiodarone therapy Elevated LFTs Other abnormal blood chemistry Chronic systolic heart failure (HCC) Chronic systolic heart failure Essential hypertension Unspecified essential hypertension Bilateral carotid artery stenosis Occlusion and stenosis of carotid artery without mention of cerebral infarction Dyslipidemia Other and unspecified hyperlipidemia CKD stage G2/A3, 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/g INGA (obstructive sleep apnea) Obstructive sleep apnea (adult) (pediatric) Obstructive sleep apnea syndrome Obstructive sleep apnea (adult) (pediatric) PAF (paroxysmal atrial fibrillation) (HCC)- Primary Atrial fibrillation On continuous oral anticoagulation On amiodarone therapy Chronic systolic heart failure (HCC) Chronic systolic heart failure Elevated LFTs Other abnormal blood chemistry Essential hypertension Unspecified essential hypertension Bilateral carotid artery stenosis Occlusion and stenosis of carotid artery without mention of cerebral infarction Dyslipidemia Other and unspecified hyperlipidemia CKD stage G2/A3, 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/g Obstructive sleep apnea syndrome Obstructive sleep apnea (adult) (pediatric) Persistent atrial fibrillation (HCC)- Primary Atrial fibrillation 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) Essential hypertension Unspecified essential hypertension Exertional shortness of breath- Primary Exertional shortness of breath documented in this encounter [facility]Evaluation note* Diagnosis Syncope and collapse- Primary Palpitations Essential hypertension Unspecified essential hypertension Bilateral carotid artery stenosis Occlusion and stenosis of carotid artery without mention of cerebral infarction Dyslipidemia Other and unspecified hyperlipidemia History of COVID-19 Syncope and collapse- Primary Palpitations Essential hypertension Unspecified essential hypertension Bilateral carotid artery stenosis Occlusion and stenosis of carotid artery without mention of cerebral infarction Dyslipidemia Other and unspecified hyperlipidemia History of COVID-19 Orthostatic hypotension Bilateral carotid artery stenosis- Primary Occlusion and stenosis of carotid artery without mention of cerebral infarction Essential hypertension Unspecified essential hypertension Dyslipidemia Other and unspecified hyperlipidemia CKD stage G2/A3, 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/g PAF (paroxysmal atrial fibrillation) (HCC)- Primary Atrial fibrillation On continuous oral anticoagulation On amiodarone therapy Elevated LFTs Other abnormal blood chemistry Chronic systolic heart failure (HCC) Chronic systolic heart failure Essential hypertension Unspecified essential hypertension Bilateral carotid artery stenosis Occlusion and stenosis of carotid artery without mention of cerebral infarction Dyslipidemia Other and unspecified hyperlipidemia CKD stage G2/A3, 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/g INGA (obstructive sleep apnea) Obstructive sleep apnea (adult) (pediatric) Obstructive sleep apnea syndrome Obstructive sleep apnea (adult) (pediatric) PAF (paroxysmal atrial fibrillation) ([facility])- Primary Atrial fibrillation On continuous oral anticoagulation On amiodarone therapy Chronic systolic heart failure (HCC) Chronic systolic heart failure Elevated LFTs Other abnormal blood chemistry Essential hypertension Unspecified essential hypertension Bilateral carotid artery stenosis Occlusion and stenosis of carotid artery without mention of cerebral infarction Dyslipidemia Other and unspecified hyperlipidemia CKD stage G2/A3, 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/g Obstructive sleep apnea syndrome Obstructive sleep apnea (adult) (pediatric) Persistent atrial fibrillation (HCC)- Primary Atrial fibrillation Heart failure with mid-range ejection fraction ([facility]) Essential hypertension Unspecified essential hypertension Pleural effusion- Primary Unspecified pleural effusion Organizing pneumonia (CMS/HCC) ([facility]) Pneumonia, organism unspecified Pulmonary nodules Other diseases of lung, not elsewhere classified documented in [facility]* Diagnosis Debility- Primary Unspecified debility Healthcare maintenance Familial hypercholesterolemia Hypertriglyceridemia Pure hyperglyceridemia INGA (obstructive sleep apnea) Obstructive sleep apnea (adult) (pediatric) Primary hypertension Unspecified essential hypertension 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 without complication, with long-term current use of insulin (Multi) Routine general medical examination at health care facility Routine general medical examination at a health care facility 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, unspecified estrogen receptor status 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 with 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, without long-term current use of insulin Vasovagal syncope Syncope and collapse Acute cough Left shoulder pain, unspecified chronicity 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 without complication, with long-term current use of insulin (Multi)- Primary Abnormal weight loss Loss of weight Healthcare maintenance- Primary Familial hypercholesterolemia Hypertriglyceridemia Pure hyperglyceridemia Primary hypertension Unspecified essential hypertension 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 with 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, unspecified whether retirement insulin use 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) 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, unspecified estrogen receptor status Anxiety Anxiety state, unspecified Gout, unspecified cause, unspecified chronicity, unspecified site Encounter for screening mammogram for breast cancer Routine general medical examination at health care facility Routine general medical examination at a health care facility Cardiac risk counseling [Z71.89] Advance directive discussed with patient [Z71.89] Encounter for screening for other disorder [Z13.89] Chest pain, unspecified type- Primary Dyspnea, unspecified type Persistent atrial fibrillation (Multi) Atrial fibrillation 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) Stage 3a chronic kidney disease (Multi) Acute heart failure, unspecified heart failure type Malignant neoplasm of left breast in female, estrogen receptor negative, unspecified site of breast Acute on chronic heart failure with preserved ejection fraction (HFpEF)- Primary Chronic bilateral pleural effusions 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 with hyperglycemia, unspecified whether retirement insulin use (Multi) B12 deficiency documented in this encounter [facility] Work Phone: Evaluation note* Diagnosis Syncope and collapse- Primary Palpitations Essential hypertension Unspecified essential hypertension Bilateral carotid artery stenosis Occlusion and stenosis of carotid artery without mention of cerebral infarction Dyslipidemia Other and unspecified hyperlipidemia History of COVID-19 Syncope and collapse- Primary Palpitations Essential hypertension Unspecified essential hypertension Bilateral carotid artery stenosis Occlusion and stenosis of carotid artery without mention of cerebral infarction Dyslipidemia Other and unspecified hyperlipidemia History of COVID-19 Orthostatic hypotension Bilateral carotid artery stenosis- Primary Occlusion and stenosis of carotid artery without mention of cerebral infarction Essential hypertension Unspecified essential hypertension Dyslipidemia Other and unspecified hyperlipidemia CKD stage G2/A3, 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/g PAF (paroxysmal atrial fibrillation) (HCC)- Primary Atrial fibrillation On continuous oral anticoagulation On amiodarone therapy Elevated LFTs Other abnormal blood chemistry Chronic systolic heart failure (HCC) Chronic systolic heart failure Essential hypertension Unspecified essential hypertension Bilateral carotid artery stenosis Occlusion and stenosis of carotid artery without mention of cerebral infarction Dyslipidemia Other and unspecified hyperlipidemia CKD stage G2/A3, 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/g INGA (obstructive sleep apnea) Obstructive sleep apnea (adult) (pediatric) Obstructive sleep apnea syndrome Obstructive sleep apnea (adult) (pediatric) PAF (paroxysmal atrial fibrillation) (HCC)- Primary Atrial fibrillation On continuous oral anticoagulation On amiodarone therapy Chronic systolic heart failure (HCC) Chronic systolic heart failure Elevated LFTs Other abnormal blood chemistry Essential hypertension Unspecified essential hypertension Bilateral carotid artery stenosis Occlusion and stenosis of carotid artery without mention of cerebral infarction Dyslipidemia Other and unspecified hyperlipidemia CKD stage G2/A3, 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/g Obstructive sleep apnea syndrome Obstructive sleep apnea (adult) (pediatric) Persistent atrial fibrillation (HCC)- Primary Atrial fibrillation 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) Essential hypertension Unspecified essential hypertension PAF (paroxysmal atrial fibrillation) (HCC)- Primary Atrial fibrillation Heart failure with improved ejection fraction (HFimpEF) ([facility]) Essential hypertension Unspecified essential hypertension Bilateral carotid artery stenosis Occlusion and stenosis of carotid artery without mention of cerebral infarction Dyslipidemia Other and unspecified hyperlipidemia Obstructive sleep apnea syndrome Obstructive sleep apnea (adult) (pediatric) Coronary artery calcification documented in this encounter [facility]Evaluation note* Diagnosis Debility- Primary Unspecified debility Healthcare maintenance Familial hypercholesterolemia Hypertriglyceridemia Pure hyperglyceridemia INGA (obstructive sleep apnea) Obstructive sleep apnea (adult) (pediatric) Primary hypertension Unspecified essential hypertension 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 without complication, with long-term current use of insulin (Multi) Routine general medical examination at health care facility Routine general medical examination at [facility] care facility 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, unspecified estrogen receptor status 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 with 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, without long-term current use of insulin Vasovagal syncope Syncope and collapse Acute cough Left shoulder pain, unspecified chronicity 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 without complication, with long-term current use of insulin (Multi)- Primary Abnormal weight loss Loss of weight Healthcare maintenance- Primary Familial hypercholesterolemia Hypertriglyceridemia Pure hyperglyceridemia Primary hypertension Unspecified essential hypertension 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 with 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, unspecified whether retirement insulin use 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) 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, unspecified estrogen receptor status Anxiety Anxiety state, unspecified Gout, unspecified cause, unspecified chronicity, unspecified site Encounter for screening mammogram for breast cancer Routine general medical examination at health care facility Routine general medical examination at a [facility] care facility Cardiac risk counseling [Z71.89] Advance directive discussed with patient [Z71.89] Encounter for screening for other disorder [Z13.89] Chest pain, unspecified type- Primary Dyspnea, unspecified type Persistent atrial fibrillation (Multi) Atrial fibrillation 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) Stage 3a chronic kidney disease (Multi) Acute heart failure, unspecified heart failure type Malignant neoplasm of left breast in female, estrogen receptor negative, unspecified site of breast Acute bronchitis, unspecified organism- Primary documented in this encounter [facility] Work Phone: Evaluation note* Diagnosis Debility- Primary Unspecified debility Healthcare maintenance Familial hypercholesterolemia Hypertriglyceridemia Pure hyperglyceridemia INGA (obstructive sleep apnea) Obstructive sleep apnea (adult) (pediatric) Primary hypertension Unspecified essential hypertension 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 without complication, with long-term current use of insulin (Multi) Routine general medical examination at health care facility Routine general medical examination at a health care facility 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, unspecified estrogen receptor status 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 with 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, without long-term current use of insulin Vasovagal syncope Syncope and collapse Acute cough Left shoulder pain, unspecified chronicity 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 without complication, with long-term current use of insulin (Multi)- Primary Abnormal weight loss Loss of weight Healthcare maintenance- Primary Familial hypercholesterolemia Hypertriglyceridemia Pure hyperglyceridemia Primary hypertension Unspecified essential hypertension 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 with 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, 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) 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, unspecified estrogen receptor status Anxiety Anxiety state, unspecified Gout, unspecified cause, unspecified chronicity, unspecified site Encounter for screening mammogram for breast cancer Routine general medical examination at health care facility Routine general medical examination at a health care facility Cardiac risk counseling [Z71.89] Advance directive discussed with patient [Z71.89] Encounter for screening for other disorder [Z13.89] Chest pain, unspecified type- Primary Dyspnea, unspecified type Persistent atrial fibrillation (Multi) Atrial fibrillation 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) Stage 3a chronic kidney disease (Multi) Acute heart failure, unspecified heart failure type Malignant neoplasm of left breast in female, estrogen receptor negative, unspecified site of breast Acute bronchitis, unspecified organism documented in this encounter [facility] Work Phone: Evaluation note* Diagnosis Syncope and collapse- Primary Palpitations Essential hypertension Unspecified essential hypertension Bilateral carotid artery stenosis Occlusion and stenosis of carotid artery without mention of cerebral infarction Dyslipidemia Other and unspecified hyperlipidemia History of COVID-19 Syncope and collapse- Primary Palpitations Essential hypertension Unspecified essential hypertension Bilateral carotid artery stenosis Occlusion and stenosis of carotid artery without mention of cerebral infarction Dyslipidemia Other and unspecified hyperlipidemia History of COVID-19 Orthostatic hypotension Bilateral carotid artery stenosis- Primary Occlusion and stenosis of carotid artery without mention of cerebral infarction Essential hypertension Unspecified essential hypertension Dyslipidemia Other and unspecified hyperlipidemia CKD stage G2/A3, 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/g PAF (paroxysmal atrial fibrillation) ([facility])- Primary Atrial fibrillation On continuous oral anticoagulation On amiodarone therapy Elevated LFTs Other abnormal blood chemistry Chronic systolic heart failure (HCC) Chronic systolic heart failure Essential hypertension Unspecified essential hypertension Bilateral carotid artery stenosis Occlusion and stenosis of carotid artery without mention of cerebral infarction Dyslipidemia Other and unspecified hyperlipidemia CKD stage G2/A3, 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/g INGA (obstructive sleep apnea) Obstructive sleep apnea (adult) (pediatric) Obstructive sleep apnea syndrome Obstructive sleep apnea (adult) (pediatric) PAF (paroxysmal atrial fibrillation) ([facility])- Primary Atrial fibrillation On continuous oral anticoagulation On amiodarone therapy Chronic systolic heart failure (HCC) Chronic systolic heart failure Elevated LFTs Other abnormal blood chemistry Essential hypertension Unspecified essential hypertension Bilateral carotid artery stenosis Occlusion and stenosis of carotid artery without mention of cerebral infarction Dyslipidemia Other and unspecified hyperlipidemia CKD stage G2/A3, 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/g Obstructive sleep apnea syndrome Obstructive sleep apnea (adult) (pediatric) Persistent atrial fibrillation (HCC)- Primary Atrial fibrillation Heart failure with mid-range ejection fraction ([facility]) Essential hypertension Unspecified essential hypertension PAF (paroxysmal atrial fibrillation) ([facility])- Primary Atrial fibrillation Heart failure with improved ejection fraction (HFimpEF) ([facility]) Essential hypertension Unspecified essential hypertension Bilateral carotid artery stenosis Occlusion and stenosis of carotid artery without mention of cerebral infarction Dyslipidemia Other and unspecified hyperlipidemia Obstructive sleep apnea syndrome Obstructive sleep apnea (adult) (pediatric) Coronary artery calcification Organizing pneumonia (CMS/HCC) ([facility]) Pneumonia, organism unspecified documented in this encounter [facility]* Diagnosis Debility- Primary Unspecified debility Healthcare maintenance Familial hypercholesterolemia Hypertriglyceridemia Pure hyperglyceridemia INGA (obstructive sleep apnea) Obstructive sleep apnea (adult) (pediatric) Primary hypertension Unspecified essential hypertension 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 without complication, with long-term current use of insulin (Multi) Routine general medical examination at health care facility Routine general medical examination at [facility] 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, unspecified estrogen receptor status 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 with 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, without long-term current use of insulin Vasovagal syncope Syncope and collapse Acute cough Left shoulder pain, unspecified chronicity 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 without complication, with long-term current use of insulin (Multi)- Primary Abnormal weight loss Loss of weight Healthcare maintenance- Primary Familial hypercholesterolemia Hypertriglyceridemia Pure hyperglyceridemia Primary hypertension Unspecified essential hypertension 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 with 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, unspecified whether retirement insulin use 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) 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, unspecified estrogen receptor status Anxiety Anxiety state, unspecified Gout, unspecified cause, unspecified chronicity, unspecified site Encounter for screening mammogram for breast cancer Routine general medical examination at [facility] care facility Routine general medical examination at a [facility] care facility Cardiac risk counseling [Z71.89] Advance directive discussed with patient [Z71.89] Encounter for screening for other disorder [Z13.89] Chest pain, unspecified type- Primary Dyspnea, unspecified type Persistent atrial fibrillation (Multi) Atrial fibrillation 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) Stage 3a chronic kidney disease (Multi) Acute heart failure, unspecified heart failure type Malignant neoplasm of left breast in female, estrogen receptor negative, unspecified site of breast Weakness- Primary Other malaise and fatigue Pain in buttock Unspecified myalgia and myositis PVD (peripheral vascular disease) ([facility]) Unspecified peripheral vascular disease documented in this encounter [facility] Work Phone: Evaluation note* Diagnosis Syncope and collapse- Primary Palpitations Essential hypertension Unspecified essential hypertension Bilateral carotid artery stenosis Occlusion and stenosis of carotid artery without mention of cerebral infarction Dyslipidemia Other and unspecified hyperlipidemia History of COVID-19 Syncope and collapse- Primary Palpitations Essential hypertension Unspecified essential hypertension Bilateral carotid artery stenosis Occlusion and stenosis of carotid artery without mention of cerebral infarction Dyslipidemia Other and unspecified hyperlipidemia History of COVID-19 Orthostatic hypotension Bilateral carotid artery stenosis- Primary Occlusion and stenosis of carotid artery without mention of cerebral infarction Essential hypertension Unspecified essential hypertension Dyslipidemia Other and unspecified hyperlipidemia CKD stage G2/A3, 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/g PAF (paroxysmal atrial fibrillation) (HCC)- Primary Atrial fibrillation On continuous oral anticoagulation On amiodarone therapy Elevated LFTs Other abnormal blood chemistry Chronic systolic heart failure (HCC) Chronic systolic heart failure Essential hypertension Unspecified essential hypertension Bilateral carotid artery stenosis Occlusion and stenosis of carotid artery without mention of cerebral infarction Dyslipidemia Other and unspecified hyperlipidemia CKD stage G2/A3, 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/g INGA (obstructive sleep apnea) Obstructive sleep apnea (adult) (pediatric) Obstructive sleep apnea syndrome Obstructive sleep apnea (adult) (pediatric) PAF (paroxysmal atrial fibrillation) ([facility])- Primary Atrial fibrillation On continuous oral anticoagulation On amiodarone therapy Chronic systolic heart failure (HCC) Chronic systolic heart failure Elevated LFTs Other abnormal blood chemistry Essential hypertension Unspecified essential hypertension Bilateral carotid artery stenosis Occlusion and stenosis of carotid artery without mention of cerebral infarction Dyslipidemia Other and unspecified hyperlipidemia CKD stage G2/A3, 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/g Obstructive sleep apnea syndrome Obstructive sleep apnea (adult) (pediatric) Persistent atrial fibrillation (HCC)- Primary Atrial fibrillation Heart failure with mid-range ejection fraction ([facility]) Essential hypertension Unspecified essential hypertension PAF (paroxysmal atrial fibrillation) ([facility])- Primary Atrial fibrillation Heart failure with improved ejection fraction (HFimpEF) ([facility]) Essential hypertension Unspecified essential hypertension Bilateral carotid artery stenosis Occlusion and stenosis of carotid artery without mention of cerebral infarction Dyslipidemia Other and unspecified hyperlipidemia Obstructive sleep apnea syndrome Obstructive sleep apnea (adult) (pediatric) Coronary artery calcification Urinary tract infection without hematuria, site unspecified- Primary [facility] Diagnosis Syncope and collapse- Primary Palpitations Essential hypertension Unspecified essential hypertension Bilateral carotid artery stenosis Occlusion and stenosis of carotid artery without mention of cerebral infarction Dyslipidemia Other and unspecified hyperlipidemia History of COVID-19 Syncope and collapse- Primary Palpitations Essential hypertension Unspecified essential hypertension Bilateral carotid artery stenosis Occlusion and stenosis of carotid artery without mention of cerebral infarction Dyslipidemia Other and unspecified hyperlipidemia History of COVID-19 Orthostatic hypotension Bilateral carotid artery stenosis- Primary Occlusion and stenosis of carotid artery without mention of cerebral infarction Essential hypertension Unspecified essential hypertension Dyslipidemia Other and unspecified hyperlipidemia CKD stage G2/A3, 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/g PAF (paroxysmal atrial fibrillation) ([facility])- Primary Atrial fibrillation On continuous oral anticoagulation On amiodarone therapy Elevated LFTs Other abnormal blood chemistry Chronic systolic heart failure (HCC) Chronic systolic heart failure Essential hypertension Unspecified essential hypertension Bilateral carotid artery stenosis Occlusion and stenosis of carotid artery without mention of cerebral infarction Dyslipidemia Other and unspecified hyperlipidemia CKD stage G2/A3, 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/g INGA (obstructive sleep apnea) Obstructive sleep apnea (adult) (pediatric) Obstructive sleep apnea syndrome Obstructive sleep apnea (adult) (pediatric) PAF (paroxysmal atrial fibrillation) ([facility])- Primary Atrial fibrillation On continuous oral anticoagulation On amiodarone therapy Chronic systolic heart failure (HCC) Chronic systolic heart failure Elevated LFTs Other abnormal blood chemistry Essential hypertension Unspecified essential hypertension Bilateral carotid artery stenosis Occlusion and stenosis of carotid artery without mention of cerebral infarction Dyslipidemia Other and unspecified hyperlipidemia CKD stage G2/A3, 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/g Obstructive sleep apnea syndrome Obstructive sleep apnea (adult) (pediatric) Persistent atrial fibrillation ([facility])- Primary Atrial fibrillation Heart failure with mid-range ejection fraction ([facility]) Essential hypertension Unspecified essential hypertension PAF (paroxysmal atrial fibrillation) ([facility])- Primary Atrial fibrillation Heart failure with improved ejection fraction (HFimpEF) ([facility]) Essential hypertension Unspecified essential hypertension Bilateral carotid artery stenosis Occlusion and stenosis of carotid artery without mention of cerebral infarction Dyslipidemia Other and unspecified hyperlipidemia Obstructive sleep apnea syndrome Obstructive sleep apnea (adult) (pediatric) Coronary artery calcification Organizing pneumonia (CMS/HCC) ([facility])- Primary Pneumonia, organism unspecified Chronic obstructive pulmonary disease, unspecified COPD type ([facility]) INGA (obstructive sleep apnea) Obstructive sleep apnea (adult) (pediatric) History of tobacco use Personal history of tobacco use, presenting hazards to health [facility]* Diagnosis Syncope and collapse- Primary Palpitations Essential hypertension Unspecified essential hypertension Bilateral carotid artery stenosis Occlusion and stenosis of carotid artery without mention of cerebral infarction Dyslipidemia Other and unspecified hyperlipidemia History of COVID-19 Syncope and collapse- Primary Palpitations Essential hypertension Unspecified essential hypertension Bilateral carotid artery stenosis Occlusion and stenosis of carotid artery without mention of cerebral infarction Dyslipidemia Other and unspecified hyperlipidemia History of COVID-19 Orthostatic hypotension Bilateral carotid artery stenosis- Primary Occlusion and stenosis of carotid artery without mention of cerebral infarction Essential hypertension Unspecified essential hypertension Dyslipidemia Other and unspecified hyperlipidemia CKD stage G2/A3, 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/g PAF (paroxysmal atrial fibrillation) (HCC)- Primary Atrial fibrillation On continuous oral anticoagulation On amiodarone therapy Elevated LFTs Other abnormal blood chemistry Chronic systolic heart failure (HCC) Chronic systolic heart failure Essential hypertension Unspecified essential hypertension Bilateral carotid artery stenosis Occlusion and stenosis of carotid artery without mention of cerebral infarction Dyslipidemia Other and unspecified hyperlipidemia CKD stage G2/A3, 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/g INGA (obstructive sleep apnea) Obstructive sleep apnea (adult) (pediatric) Obstructive sleep apnea syndrome Obstructive sleep apnea (adult) (pediatric) PAF (paroxysmal atrial fibrillation) ([facility])- Primary Atrial fibrillation On continuous oral anticoagulation On amiodarone therapy Chronic systolic heart failure (HCC) Chronic systolic heart failure Elevated LFTs Other abnormal blood chemistry Essential hypertension Unspecified essential hypertension Bilateral carotid artery stenosis Occlusion and stenosis of carotid artery without mention of cerebral infarction Dyslipidemia Other and unspecified hyperlipidemia CKD stage G2/A3, 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/g Obstructive sleep apnea syndrome Obstructive sleep apnea (adult) (pediatric) Persistent atrial fibrillation ([facility])- Primary Atrial fibrillation Heart failure with mid-range ejection fraction ([facility]) Essential hypertension Unspecified essential hypertension PAF (paroxysmal atrial fibrillation) ([facility])- Primary Atrial fibrillation Heart failure with improved ejection fraction (HFimpEF) ([facility]) Essential hypertension Unspecified essential hypertension Bilateral carotid artery stenosis Occlusion and stenosis of carotid artery without mention of cerebral infarction Dyslipidemia Other and unspecified hyperlipidemia Obstructive sleep apnea syndrome Obstructive sleep apnea (adult) (pediatric) Coronary artery calcification CRUZ (dyspnea on exertion)- Primary Other dyspnea and respiratory abnormality Heart failure with improved ejection fraction (HFimpEF) ([facility]) PAF (paroxysmal atrial fibrillation) ([facility]) Atrial fibrillation Essential hypertension Unspecified essential hypertension Bilateral carotid artery stenosis Occlusion and stenosis of carotid artery without mention of cerebral infarction Dyslipidemia Other and unspecified hyperlipidemia Obstructive sleep apnea syndrome Obstructive sleep apnea (adult) (pediatric) [facility]* Diagnosis Syncope and collapse- Primary Palpitations Essential hypertension Unspecified essential hypertension Bilateral carotid artery stenosis Occlusion and stenosis of carotid artery without mention of cerebral infarction Dyslipidemia Other and unspecified hyperlipidemia History of COVID-19 Syncope and collapse- Primary Palpitations Essential hypertension Unspecified essential hypertension Bilateral carotid artery stenosis Occlusion and stenosis of carotid artery without mention of cerebral infarction Dyslipidemia Other and unspecified hyperlipidemia History of COVID-19 Orthostatic hypotension Bilateral carotid artery stenosis- Primary Occlusion and stenosis of carotid artery without mention of cerebral infarction Essential hypertension Unspecified essential hypertension Dyslipidemia Other and unspecified hyperlipidemia CKD stage G2/A3, 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/g PAF (paroxysmal atrial fibrillation) (HCC)- Primary Atrial fibrillation On continuous oral anticoagulation On amiodarone therapy Elevated LFTs Other abnormal blood chemistry Chronic systolic heart failure (HCC) Chronic systolic heart failure Essential hypertension Unspecified essential hypertension Bilateral carotid artery stenosis Occlusion and stenosis of carotid artery without mention of cerebral infarction Dyslipidemia Other and unspecified hyperlipidemia CKD stage G2/A3, 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/g INGA (obstructive sleep apnea) Obstructive sleep apnea (adult) (pediatric) Obstructive sleep apnea syndrome Obstructive sleep apnea (adult) (pediatric) PAF (paroxysmal atrial fibrillation) ([facility])- Primary Atrial fibrillation On continuous oral anticoagulation On amiodarone therapy Chronic systolic heart failure (HCC) Chronic systolic heart failure Elevated LFTs Other abnormal blood chemistry Essential hypertension Unspecified essential hypertension Bilateral carotid artery stenosis Occlusion and stenosis of carotid artery without mention of cerebral infarction Dyslipidemia Other and unspecified hyperlipidemia CKD stage G2/A3, 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/g Obstructive sleep apnea syndrome Obstructive sleep apnea (adult) (pediatric) Persistent atrial fibrillation (HCC)- Primary Atrial fibrillation Heart failure with mid-range ejection fraction ([facility]) Essential hypertension Unspecified essential hypertension PAF (paroxysmal atrial fibrillation) ([facility])- Primary Atrial fibrillation Heart failure with improved ejection fraction (HFimpEF) ([facility]) Essential hypertension Unspecified essential hypertension Bilateral carotid artery stenosis Occlusion and stenosis of carotid artery without mention of cerebral infarction Dyslipidemia Other and unspecified hyperlipidemia Obstructive sleep apnea syndrome Obstructive sleep apnea (adult) (pediatric) Coronary artery calcification CRUZ (dyspnea on exertion)- Primary Other dyspnea and respiratory abnormality Heart failure with improved ejection fraction (HFimpEF) ([facility]) PAF (paroxysmal atrial fibrillation) ([facility]) Atrial fibrillation Essential hypertension Unspecified essential hypertension Bilateral carotid artery stenosis Occlusion and stenosis of carotid artery without mention of cerebral infarction Dyslipidemia Other and unspecified hyperlipidemia Obstructive sleep apnea syndrome Obstructive sleep apnea (adult) (pediatric) Symptomatic anemia- Primary Symptomatic anemia Chronic anticoagulation Encounter for long-term (current) use of anticoagulants Organizing pneumonia (CMS/HCC) ([facility]) Pneumonia, organism unspecified Liver failure without hepatic coma, unspecified chronicity ([facility]) Cardiogenic shock (HCC) Cardiogenic shock Moderate malnutrition (CMS/HCC) (HCC) Liver failure without hepatic coma, unspecified chronicity (HCC) Cardiogenic shock (HCC) [facility]ogenic [facility] Debility- Primary Unspecified debility Healthcare maintenance Familial hypercholesterolemia Hypertriglyceridemia Pure hyperglyceridemia INGA (obstructive sleep apnea) Obstructive sleep apnea (adult) (pediatric) Primary hypertension Unspecified essential hypertension 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 without complication, with long-term current use of insulin Routine general medical examination at [facility] care facility Routine general medical examination at [facility] 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, unspecified estrogen receptor status 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 with 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, without long-term current use of insulin Vasovagal syncope Syncope and collapse Acute cough Left shoulder pain, unspecified chronicity 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 without complication, with long-term current use of insulin- Primary Abnormal weight loss Loss of weight Healthcare maintenance- Primary Familial hypercholesterolemia Hypertriglyceridemia Pure hyperglyceridemia Primary hypertension Unspecified essential hypertension 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 with 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, unspecified whether retirement insulin use 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) 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, unspecified estrogen receptor status Anxiety Anxiety state, unspecified Gout, unspecified cause, unspecified chronicity, unspecified site Encounter for screening mammogram for breast cancer Routine general medical examination at [facility] care facility Routine general medical examination at [facility] Cardiac risk counseling [Z71.89] Advance directive discussed with patient [Z71.89] Encounter for screening for other disorder [Z13.89] Chest pain, unspecified type- Primary Dyspnea, unspecified type Persistent atrial fibrillation (Multi) Atrial fibrillation 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) Stage 3a chronic kidney disease (Multi) Acute heart failure, unspecified heart failure type Malignant neoplasm of left breast in female, estrogen receptor negative, unspecified site of breast Iron deficiency anemia, unspecified iron deficiency anemia type- Primary 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 with hyperglycemia, 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) 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) Stage 3a chronic kidney disease (Multi) Primary hypertension Unspecified essential hypertension 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 with 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, without long-term current use of insulin Lymphocytosis Lymphocytosis (symptomatic) B12 deficiency documented in this encounter [facility] Work Phone: Evaluation note* Diagnosis Debility- Primary Unspecified debility Healthcare maintenance Familial hypercholesterolemia Hypertriglyceridemia Pure hyperglyceridemia INGA (obstructive sleep apnea) Obstructive sleep apnea (adult) (pediatric) Primary hypertension Unspecified essential hypertension 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 without complication, with long-term current use of insulin Routine general medical examination at health care facility Routine general medical examination at a [facility] care facility 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, unspecified estrogen receptor status 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 with 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, without long-term current use of insulin Vasovagal syncope Syncope and collapse Acute cough Left shoulder pain, unspecified chronicity Healthcare maintenance- Primary Familial hypercholesterolemia Hypertriglyceridemia Pure hyperglyceridemia Primary hypertension Unspecified essential hypertension 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 with 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, 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) 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, unspecified estrogen receptor status Anxiety Anxiety state, unspecified Gout, unspecified cause, unspecified chronicity, unspecified site Encounter for screening mammogram for breast cancer Routine general medical examination at health care facility Routine general medical examination at a [facility] care facility Cardiac risk counseling [Z71.89] Advance directive discussed with patient [Z71.89] Encounter for screening for other disorder [Z13.89] Chest pain, unspecified type- Primary Dyspnea, unspecified type Persistent atrial fibrillation (Multi) Atrial fibrillation 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) Stage 3a chronic kidney disease (Multi) Acute heart failure, unspecified heart failure type Malignant neoplasm of left breast in female, estrogen receptor negative, unspecified site of breast Healthcare maintenance- Primary Primary hypertension Unspecified essential hypertension Persistent atrial fibrillation (Multi) Atrial fibrillation Hypertriglyceridemia Pure hyperglyceridemia Familial hypercholesterolemia 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, 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 Moderate malnutrition (Multi) 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) Liver failure without hepatic coma, unspecified chronicity (Multi) Elevated LFTs Other abnormal blood chemistry Stage 3a chronic kidney disease (Multi) S/P breast reconstruction, bilateral BRCA1 positive Genetic susceptibility to malignant neoplasm of breast 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, unspecified estrogen receptor status History of breast cancer Personal history of malignant neoplasm of breast Anxiety Anxiety state, unspecified SOB (shortness of breath) Shortness of breath INGA (obstructive sleep apnea) Obstructive sleep apnea (adult) (pediatric) Abrasion Abrasion or friction burn of other, multiple, and unspecified sites, without mention of infection Routine general medical examination at health care facility Routine general medical examination at a health care facility Advance directive discussed with patient [Z71.89] documented in this encounter [facility] Work Phone: Evaluation note* Diagnosis Syncope and collapse- Primary Palpitations Essential hypertension Unspecified essential hypertension Bilateral carotid artery stenosis Occlusion and stenosis of carotid artery without mention of cerebral infarction Dyslipidemia Other and unspecified hyperlipidemia History of COVID-19 Syncope and collapse- Primary Palpitations Essential hypertension Unspecified essential hypertension Bilateral carotid artery stenosis Occlusion and stenosis of carotid artery without mention of cerebral infarction Dyslipidemia Other and unspecified hyperlipidemia History of COVID-19 Orthostatic hypotension Bilateral carotid artery stenosis- Primary Occlusion and stenosis of carotid artery without mention of cerebral infarction Essential hypertension Unspecified essential hypertension Dyslipidemia Other and unspecified hyperlipidemia CKD stage G2/A3, 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/g PAF (paroxysmal atrial fibrillation) ([facility])- Primary Atrial fibrillation On continuous oral anticoagulation On amiodarone therapy Elevated LFTs Other abnormal blood chemistry Chronic systolic heart failure (HCC) Chronic systolic heart failure Essential hypertension Unspecified essential hypertension Bilateral carotid artery stenosis Occlusion and stenosis of carotid artery without mention of cerebral infarction Dyslipidemia Other and unspecified hyperlipidemia CKD stage G2/A3, 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/g INGA (obstructive sleep apnea) Obstructive sleep apnea (adult) (pediatric) Obstructive sleep apnea syndrome Obstructive sleep apnea (adult) (pediatric) PAF (paroxysmal atrial fibrillation) ([facility])- Primary Atrial fibrillation On continuous oral anticoagulation On amiodarone therapy Chronic systolic heart failure (HCC) Chronic systolic heart failure Elevated LFTs Other abnormal blood chemistry Essential hypertension Unspecified essential hypertension Bilateral carotid artery stenosis Occlusion and stenosis of carotid artery without mention of cerebral infarction Dyslipidemia Other and unspecified hyperlipidemia CKD stage G2/A3, 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/g Obstructive sleep apnea syndrome Obstructive sleep apnea (adult) (pediatric) Persistent atrial fibrillation (HCC)- Primary Atrial fibrillation Heart failure with mid-range ejection fraction ([facility]) Essential hypertension Unspecified essential hypertension PAF (paroxysmal atrial fibrillation) ([facility])- Primary Atrial fibrillation Heart failure with improved ejection fraction (HFimpEF) ([facility]) Essential hypertension Unspecified essential hypertension Bilateral carotid artery stenosis Occlusion and stenosis of carotid artery without mention of cerebral infarction Dyslipidemia Other and unspecified hyperlipidemia Obstructive sleep apnea syndrome Obstructive sleep apnea (adult) (pediatric) Coronary artery calcification CRUZ (dyspnea on exertion)- Primary Other dyspnea and respiratory abnormality Heart failure with improved ejection fraction (HFimpEF) ([facility]) PAF (paroxysmal atrial fibrillation) ([facility]) Atrial fibrillation Essential hypertension Unspecified essential hypertension Bilateral carotid artery stenosis Occlusion and stenosis of carotid artery without mention of cerebral infarction Dyslipidemia Other and unspecified hyperlipidemia Obstructive sleep apnea syndrome Obstructive sleep apnea (adult) (pediatric) PAF (paroxysmal atrial fibrillation) ([facility]) Atrial fibrillation On continuous oral anticoagulation documented in this encounter [facility]* Diagnosis Syncope and collapse- Primary Palpitations Essential hypertension Unspecified essential hypertension Bilateral carotid artery stenosis Occlusion and stenosis of carotid artery without mention of cerebral infarction Dyslipidemia Other and unspecified hyperlipidemia History of COVID-19 Syncope and collapse- Primary Palpitations Essential hypertension Unspecified essential hypertension Bilateral carotid artery stenosis Occlusion and stenosis of carotid artery without mention of cerebral infarction Dyslipidemia Other and unspecified hyperlipidemia History of COVID-19 Orthostatic hypotension Bilateral carotid artery stenosis- Primary Occlusion and stenosis of carotid artery without mention of cerebral infarction Essential hypertension Unspecified essential hypertension Dyslipidemia Other and unspecified hyperlipidemia CKD stage G2/A3, 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/g PAF (paroxysmal atrial fibrillation) ([facility])- Primary Atrial fibrillation On continuous oral anticoagulation On amiodarone therapy Elevated LFTs Other abnormal blood chemistry Chronic systolic heart failure ([facility]) Chronic systolic heart failure Essential hypertension Unspecified essential hypertension Bilateral carotid artery stenosis Occlusion and stenosis of carotid artery without mention of cerebral infarction Dyslipidemia Other and unspecified hyperlipidemia CKD stage G2/A3, 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/g INGA (obstructive sleep apnea) Obstructive sleep apnea (adult) (pediatric) Obstructive sleep apnea syndrome Obstructive sleep apnea (adult) (pediatric) PAF (paroxysmal atrial fibrillation) ([facility])- Primary Atrial fibrillation On continuous oral anticoagulation On amiodarone therapy Chronic systolic heart failure ([facility]) Chronic systolic heart failure Elevated LFTs Other abnormal blood chemistry Essential hypertension Unspecified essential hypertension Bilateral carotid artery stenosis Occlusion and stenosis of carotid artery without mention of cerebral infarction Dyslipidemia Other and unspecified hyperlipidemia CKD stage G2/A3, 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/g Obstructive sleep apnea syndrome Obstructive sleep apnea (adult) (pediatric) Persistent atrial fibrillation ([facility])- Primary Atrial fibrillation Heart failure with mid-range ejection fraction ([facility]) Essential hypertension Unspecified essential hypertension PAF (paroxysmal atrial fibrillation) ([facility])- Primary Atrial fibrillation Heart failure with improved ejection fraction (HFimpEF) ([facility]) Essential hypertension Unspecified essential hypertension Bilateral carotid artery stenosis Occlusion and stenosis of carotid artery without mention of cerebral infarction Dyslipidemia Other and unspecified hyperlipidemia Obstructive sleep apnea syndrome Obstructive sleep apnea (adult) (pediatric) Coronary artery calcification CRUZ (dyspnea on exertion)- Primary Other dyspnea and respiratory abnormality Heart failure with improved ejection fraction (HFimpEF) ([facility]) PAF (paroxysmal atrial fibrillation) ([facility]) Atrial fibrillation Essential hypertension Unspecified essential hypertension Bilateral carotid artery stenosis Occlusion and stenosis of carotid artery without mention of cerebral infarction Dyslipidemia Other and unspecified hyperlipidemia Obstructive sleep apnea syndrome Obstructive sleep apnea (adult) (pediatric) Heart failure with improved ejection fraction (HFimpEF) ([facility])- Primary PAF (paroxysmal atrial fibrillation) ([facility]) Atrial fibrillation Dyslipidemia Other and unspecified hyperlipidemia Essential hypertension Unspecified essential hypertension Bilateral carotid artery stenosis Occlusion and stenosis of carotid artery without mention of cerebral infarction CKD stage G2/A3, 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/g Weight loss Loss of weight [facility] Diagnosis Syncope and collapse- Primary Palpitations Essential hypertension Unspecified essential hypertension Bilateral carotid artery stenosis Occlusion and stenosis of carotid artery without mention of cerebral infarction Dyslipidemia Other and unspecified hyperlipidemia History of COVID-19 Syncope and collapse- Primary Palpitations Essential hypertension Unspecified essential hypertension Bilateral carotid artery stenosis Occlusion and stenosis of carotid artery without mention of cerebral infarction Dyslipidemia Other and unspecified hyperlipidemia History of COVID-19 Orthostatic hypotension Bilateral carotid artery stenosis- Primary Occlusion and stenosis of carotid artery without mention of cerebral infarction Essential hypertension Unspecified essential hypertension Dyslipidemia Other and unspecified hyperlipidemia CKD stage G2/A3, 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/g PAF (paroxysmal atrial fibrillation) ([facility])- Primary Atrial fibrillation On continuous oral anticoagulation On amiodarone therapy Elevated LFTs Other abnormal blood chemistry Chronic systolic heart failure ([facility]) Chronic systolic heart failure Essential hypertension Unspecified essential hypertension Bilateral carotid artery stenosis Occlusion and stenosis of carotid artery without mention of cerebral infarction Dyslipidemia Other and unspecified hyperlipidemia CKD stage G2/A3, 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/g INGA (obstructive sleep apnea) Obstructive sleep apnea (adult) (pediatric) Obstructive sleep apnea syndrome Obstructive sleep apnea (adult) (pediatric) PAF (paroxysmal atrial fibrillation) ([facility])- Primary Atrial fibrillation On continuous oral anticoagulation On amiodarone therapy Chronic systolic heart failure (HCC) Chronic systolic heart failure Elevated LFTs Other abnormal blood chemistry Essential hypertension Unspecified essential hypertension Bilateral carotid artery stenosis Occlusion and stenosis of carotid artery without mention of cerebral infarction Dyslipidemia Other and unspecified hyperlipidemia CKD stage G2/A3, 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/g Obstructive sleep apnea syndrome Obstructive sleep apnea (adult) (pediatric) Persistent atrial fibrillation ([facility])- Primary Atrial fibrillation Heart failure with mid-range ejection fraction ([facility]) Essential hypertension Unspecified essential hypertension PAF (paroxysmal atrial fibrillation) ([facility])- Primary Atrial fibrillation Heart failure with improved ejection fraction (HFimpEF) ([facility]) Essential hypertension Unspecified essential hypertension Bilateral carotid artery stenosis Occlusion and stenosis of carotid artery without mention of cerebral infarction Dyslipidemia Other and unspecified hyperlipidemia Obstructive sleep apnea syndrome Obstructive sleep apnea (adult) (pediatric) Coronary artery calcification CRUZ (dyspnea on exertion)- Primary Other dyspnea and respiratory abnormality Heart failure with improved ejection fraction (HFimpEF) ([facility]) PAF (paroxysmal atrial fibrillation) ([facility]) Atrial fibrillation Essential hypertension Unspecified essential hypertension Bilateral carotid artery stenosis Occlusion and stenosis of carotid artery without mention of cerebral infarction Dyslipidemia Other and unspecified hyperlipidemia Obstructive sleep apnea syndrome Obstructive sleep apnea (adult) (pediatric) Heart failure with improved ejection fraction (HFimpEF) ([facility])- Primary PAF (paroxysmal atrial fibrillation) ([facility]) Atrial fibrillation Dyslipidemia Other and unspecified hyperlipidemia Essential hypertension Unspecified essential hypertension Bilateral carotid artery stenosis Occlusion and stenosis of carotid artery without mention of cerebral infarction CKD stage G2/A3, 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/g Weight loss Loss of weight Chronic obstructive pulmonary disease, unspecified COPD type ([facility]) [facility]* Diagnosis Debility- Primary Unspecified debility Healthcare maintenance Familial hypercholesterolemia Hypertriglyceridemia Pure hyperglyceridemia INGA (obstructive sleep apnea) Obstructive sleep apnea (adult) (pediatric) Primary hypertension Unspecified essential hypertension 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 without complication, with long-term current use of insulin Routine general medical examination at health care facility Routine general medical examination at a health care facility 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, unspecified estrogen receptor status 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 with 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, without long-term current use of insulin Vasovagal syncope Syncope and collapse Acute cough Left shoulder pain, unspecified chronicity Healthcare maintenance- Primary Familial hypercholesterolemia Hypertriglyceridemia Pure hyperglyceridemia Primary hypertension Unspecified essential hypertension 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 with 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, 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) 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, unspecified estrogen receptor status Anxiety Anxiety state, unspecified Gout, unspecified cause, unspecified chronicity, unspecified site Encounter for screening mammogram for breast cancer Routine general medical examination at health care facility Routine general medical examination at a health care facility Cardiac risk counseling [Z71.89] Advance directive discussed with patient [Z71.89] Encounter for screening for other disorder [Z13.89] Chest pain, unspecified type- Primary Dyspnea, unspecified type Persistent atrial fibrillation (Multi) Atrial fibrillation 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) Stage 3a chronic kidney disease (Multi) Acute heart failure, unspecified heart failure type Malignant neoplasm of left breast in female, estrogen receptor negative, unspecified site of breast Healthcare maintenance- Primary Primary hypertension Unspecified essential hypertension Persistent atrial fibrillation (Multi) Atrial fibrillation Hypertriglyceridemia Pure hyperglyceridemia Familial hypercholesterolemia 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, unspecified whether retirement insulin use Moderate malnutrition (Multi) 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) Liver failure without hepatic coma, unspecified chronicity (Multi) Elevated LFTs Other abnormal blood chemistry Stage 3a chronic kidney disease (Multi) S/P breast reconstruction, bilateral BRCA1 positive Genetic susceptibility to malignant neoplasm of breast 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, unspecified estrogen receptor status History of breast cancer Personal history of malignant neoplasm of breast Anxiety Anxiety state, unspecified SOB (shortness of breath) Shortness of breath INGA (obstructive sleep apnea) Obstructive sleep apnea (adult) (pediatric) Abrasion Abrasion or friction burn of other, multiple, and unspecified sites, without mention of infection Routine general medical examination at health care facility Routine general medical examination at a health care facility Advance directive discussed with patient [Z71.89] Atrial fibrillation, unspecified type (Multi) 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 without complication, with long-term current use of insulin 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) SOB (shortness of breath) Shortness of breath documented in this encounter [facility] Work Phone: Evaluation note* Diagnosis Syncope and collapse- Primary Palpitations Essential hypertension Unspecified essential hypertension Bilateral carotid artery stenosis Occlusion and stenosis of carotid artery without mention of cerebral infarction Dyslipidemia Other and unspecified hyperlipidemia History of COVID-19 Syncope and collapse- Primary Palpitations Essential hypertension Unspecified essential hypertension Bilateral carotid artery stenosis Occlusion and stenosis of carotid artery without mention of cerebral infarction Dyslipidemia Other and unspecified hyperlipidemia History of COVID-19 Orthostatic hypotension Bilateral carotid artery stenosis- Primary Occlusion and stenosis of carotid artery without mention of cerebral infarction Essential hypertension Unspecified essential hypertension Dyslipidemia Other and unspecified hyperlipidemia CKD stage G2/A3, 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/g PAF (paroxysmal atrial fibrillation) ([facility])- Primary Atrial fibrillation On continuous oral anticoagulation On amiodarone therapy Elevated LFTs Other abnormal blood chemistry Chronic systolic heart failure ([facility]) Chronic systolic heart failure Essential hypertension Unspecified essential hypertension Bilateral carotid artery stenosis Occlusion and stenosis of carotid artery without mention of cerebral infarction Dyslipidemia Other and unspecified hyperlipidemia CKD stage G2/A3, 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/g INGA (obstructive sleep apnea) Obstructive sleep apnea (adult) (pediatric) Obstructive sleep apnea syndrome Obstructive sleep apnea (adult) (pediatric) PAF (paroxysmal atrial fibrillation) ([facility])- Primary Atrial fibrillation On continuous oral anticoagulation On amiodarone therapy Chronic systolic heart failure ([facility]) Chronic systolic heart failure Elevated LFTs Other abnormal blood chemistry Essential hypertension Unspecified essential hypertension Bilateral carotid artery stenosis Occlusion and stenosis of carotid artery without mention of cerebral infarction Dyslipidemia Other and unspecified hyperlipidemia CKD stage G2/A3, 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/g Obstructive sleep apnea syndrome Obstructive sleep apnea (adult) (pediatric) Persistent atrial fibrillation ([facility])- Primary Atrial fibrillation Heart failure with mid-range ejection fraction ([facility]) Essential hypertension Unspecified essential hypertension PAF (paroxysmal atrial fibrillation) ([facility])- Primary Atrial fibrillation Heart failure with improved ejection fraction (HFimpEF) ([facility]) Essential hypertension Unspecified essential hypertension Bilateral carotid artery stenosis Occlusion and stenosis of carotid artery without mention of cerebral infarction Dyslipidemia Other and unspecified hyperlipidemia Obstructive sleep apnea syndrome Obstructive sleep apnea (adult) (pediatric) Coronary artery calcification CRUZ (dyspnea on exertion)- Primary Other dyspnea and respiratory abnormality Heart failure with improved ejection fraction (HFimpEF) ([facility]) PAF (paroxysmal atrial fibrillation) ([facility]) Atrial fibrillation Essential hypertension Unspecified essential hypertension Bilateral carotid artery stenosis Occlusion and stenosis of carotid artery without mention of cerebral infarction Dyslipidemia Other and unspecified hyperlipidemia Obstructive sleep apnea syndrome Obstructive sleep apnea (adult) (pediatric) Heart failure with improved ejection fraction (HFimpEF) ([facility])- Primary PAF (paroxysmal atrial fibrillation) ([facility]) Atrial fibrillation Dyslipidemia Other and unspecified hyperlipidemia Essential hypertension Unspecified essential hypertension Bilateral carotid artery stenosis Occlusion and stenosis of carotid artery without mention of cerebral infarction CKD stage G2/A3, 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/g Weight loss Loss of weight Chronic obstructive pulmonary disease, unspecified COPD type ([facility]) Organizing pneumonia (CMS/HCC) ([facility]) Pneumonia, organism unspecified Pulmonary emphysema, unspecified emphysema type ([facility]) [facility] Diagnosis Syncope and collapse- Primary Palpitations Essential hypertension Unspecified essential hypertension Bilateral carotid artery stenosis Occlusion and stenosis of carotid artery without mention of cerebral infarction Dyslipidemia Other and unspecified hyperlipidemia History of COVID-19 Syncope and collapse- Primary Palpitations Essential hypertension Unspecified essential hypertension Bilateral carotid artery stenosis Occlusion and stenosis of carotid artery without mention of cerebral infarction Dyslipidemia Other and unspecified hyperlipidemia History of COVID-19 Orthostatic hypotension Bilateral carotid artery stenosis- Primary Occlusion and stenosis of carotid artery without mention of cerebral infarction Essential hypertension Unspecified essential hypertension Dyslipidemia Other and unspecified hyperlipidemia CKD stage G2/A3, 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/g PAF (paroxysmal atrial fibrillation) ([facility])- Primary Atrial fibrillation On continuous oral anticoagulation On amiodarone therapy Elevated LFTs Other abnormal blood chemistry Chronic systolic heart failure (HCC) Chronic systolic heart failure Essential hypertension Unspecified essential hypertension Bilateral carotid artery stenosis Occlusion and stenosis of carotid artery without mention of cerebral infarction Dyslipidemia Other and unspecified hyperlipidemia CKD stage G2/A3, 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/g INGA (obstructive sleep apnea) Obstructive sleep apnea (adult) (pediatric) Obstructive sleep apnea syndrome Obstructive sleep apnea (adult) (pediatric) PAF (paroxysmal atrial fibrillation) ([facility])- Primary Atrial fibrillation On continuous oral anticoagulation On amiodarone therapy Chronic systolic heart failure (HCC) Chronic systolic heart failure Elevated LFTs Other abnormal blood chemistry Essential hypertension Unspecified essential hypertension Bilateral carotid artery stenosis Occlusion and stenosis of carotid artery without mention of cerebral infarction Dyslipidemia Other and unspecified hyperlipidemia CKD stage G2/A3, 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/g Obstructive sleep apnea syndrome Obstructive sleep apnea (adult) (pediatric) Persistent atrial fibrillation (HCC)- Primary Atrial fibrillation Heart failure with mid-range ejection fraction ([facility]) Essential hypertension Unspecified essential hypertension PAF (paroxysmal atrial fibrillation) ([facility])- Primary Atrial fibrillation Heart failure with improved ejection fraction (HFimpEF) ([facility]) Essential hypertension Unspecified essential hypertension Bilateral carotid artery stenosis Occlusion and stenosis of carotid artery without mention of cerebral infarction Dyslipidemia Other and unspecified hyperlipidemia Obstructive sleep apnea syndrome Obstructive sleep apnea (adult) (pediatric) Coronary artery calcification CRUZ (dyspnea on exertion)- Primary Other dyspnea and respiratory abnormality Heart failure with improved ejection fraction (HFimpEF) ([facility]) PAF (paroxysmal atrial fibrillation) ([facility]) Atrial fibrillation Essential hypertension Unspecified essential hypertension Bilateral carotid artery stenosis Occlusion and stenosis of carotid artery without mention of cerebral infarction Dyslipidemia Other and unspecified hyperlipidemia Obstructive sleep apnea syndrome Obstructive sleep apnea (adult) (pediatric) Heart failure with improved ejection fraction (HFimpEF) ([facility])- Primary PAF (paroxysmal atrial fibrillation) ([facility]) Atrial fibrillation Dyslipidemia Other and unspecified hyperlipidemia Essential hypertension Unspecified essential hypertension Bilateral carotid artery stenosis Occlusion and stenosis of carotid artery without mention of cerebral infarction CKD stage G2/A3, 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/g Weight loss Loss of weight Chronic obstructive pulmonary disease, unspecified COPD type ([facility])- Primary Organizing pneumonia (CMS/HCC) ([facility]) Pneumonia, organism unspecified Pulmonary emphysema, unspecified emphysema type ([facility]) INGA (obstructive sleep apnea) Obstructive sleep apnea (adult) (pediatric) [facility] Diagnosis Syncope and collapse- Primary Palpitations Essential hypertension Unspecified essential hypertension Bilateral carotid artery stenosis Occlusion and stenosis of carotid artery without mention of cerebral infarction Dyslipidemia Other and unspecified hyperlipidemia History of COVID-19 Syncope and collapse- Primary Palpitations Essential hypertension Unspecified essential hypertension Bilateral carotid artery stenosis Occlusion and stenosis of carotid artery without mention of cerebral infarction Dyslipidemia Other and unspecified hyperlipidemia History of COVID-19 Orthostatic hypotension Bilateral carotid artery stenosis- Primary Occlusion and stenosis of carotid artery without mention of cerebral infarction Essential hypertension Unspecified essential hypertension Dyslipidemia Other and unspecified hyperlipidemia CKD stage G2/A3, 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/g PAF (paroxysmal atrial fibrillation) ([facility])- Primary Atrial fibrillation On continuous oral anticoagulation On amiodarone therapy Elevated LFTs Other abnormal blood chemistry Chronic systolic heart failure ([facility]) Chronic systolic heart failure Essential hypertension Unspecified essential hypertension Bilateral carotid artery stenosis Occlusion and stenosis of carotid artery without mention of cerebral infarction Dyslipidemia Other and unspecified hyperlipidemia CKD stage G2/A3, 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/g INGA (obstructive sleep apnea) Obstructive sleep apnea (adult) (pediatric) Obstructive sleep apnea syndrome Obstructive sleep apnea (adult) (pediatric) PAF (paroxysmal atrial fibrillation) ([facility])- Primary Atrial fibrillation On continuous oral anticoagulation On amiodarone therapy Chronic systolic heart failure (HCC) Chronic systolic heart failure Elevated LFTs Other abnormal blood chemistry Essential hypertension Unspecified essential hypertension Bilateral carotid artery stenosis Occlusion and stenosis of carotid artery without mention of cerebral infarction Dyslipidemia Other and unspecified hyperlipidemia CKD stage G2/A3, 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/g Obstructive sleep apnea syndrome Obstructive sleep apnea (adult) (pediatric) Persistent atrial fibrillation ([facility])- Primary Atrial fibrillation Heart failure with mid-range ejection fraction ([facility]) Essential hypertension Unspecified essential hypertension PAF (paroxysmal atrial fibrillation) ([facility])- Primary Atrial fibrillation Heart failure with improved ejection fraction (HFimpEF) ([facility]) Essential hypertension Unspecified essential hypertension Bilateral carotid artery stenosis Occlusion and stenosis of carotid artery without mention of cerebral infarction Dyslipidemia Other and unspecified hyperlipidemia Obstructive sleep apnea syndrome Obstructive sleep apnea (adult) (pediatric) Coronary artery calcification CRUZ (dyspnea on exertion)- Primary Other dyspnea and respiratory abnormality Heart failure with improved ejection fraction (HFimpEF) ([facility]) PAF (paroxysmal atrial fibrillation) ([facility]) Atrial fibrillation Essential hypertension Unspecified essential hypertension Bilateral carotid artery stenosis Occlusion and stenosis of carotid artery without mention of cerebral infarction Dyslipidemia Other and unspecified hyperlipidemia Obstructive sleep apnea syndrome Obstructive sleep apnea (adult) (pediatric) Heart failure with improved ejection fraction (HFimpEF) ([facility])- Primary PAF (paroxysmal atrial fibrillation) ([facility]) Atrial fibrillation Dyslipidemia Other and unspecified hyperlipidemia Essential hypertension Unspecified essential hypertension Bilateral carotid artery stenosis Occlusion and stenosis of carotid artery without mention of cerebral infarction CKD stage G2/A3, 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/g Weight loss Loss of weight PAF (paroxysmal atrial fibrillation) ([facility]) Atrial fibrillation Heart failure with improved ejection fraction (HFimpEF) ([facility]) Essential hypertension Unspecified essential hypertension Coronary artery calcification documented [facility]* Diagnosis Lumbar stenosis with neurogenic claudication- Primary Spinal stenosis, lumbar region, with neurogenic claudication Spinal stenosis of lumbar region with neurogenic claudication Spinal stenosis, lumbar region, with neurogenic claudication Spinal stenosis of cervical region Spinal stenosis in cervical region Elevated blood sugar Other abnormal glucose [facility] Lumbar stenosis with neurogenic claudication Spinal stenosis, lumbar region, with neurogenic claudication [facility] Diagnosis Debility- Primary Unspecified debility Healthcare maintenance Familial hypercholesterolemia Hypertriglyceridemia Pure hyperglyceridemia INGA (obstructive sleep apnea) Obstructive sleep apnea (adult) (pediatric) Primary hypertension Unspecified essential hypertension 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 without complication, with long-term current use of insulin Routine general medical examination at health care facility Routine general medical examination at a [facility] care facility 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, unspecified estrogen receptor status 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 with 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, without long-term current use of insulin Vasovagal syncope Syncope and collapse Acute cough Left shoulder pain, unspecified chronicity Healthcare maintenance- Primary Familial hypercholesterolemia Hypertriglyceridemia Pure hyperglyceridemia Primary hypertension Unspecified essential hypertension 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 with 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, 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) 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, unspecified estrogen receptor status Anxiety Anxiety state, unspecified Gout, unspecified cause, unspecified chronicity, unspecified site Encounter for screening mammogram for breast cancer Routine general medical examination at health care facility Routine general medical examination at a [facility] care facility Cardiac risk counseling [Z71.89] Advance directive discussed with patient [Z71.89] Encounter for screening for other disorder [Z13.89] Chest pain, unspecified type- Primary Dyspnea, unspecified type Persistent atrial fibrillation (Multi) Atrial fibrillation 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) Stage 3a chronic kidney disease (Multi) Acute heart failure, unspecified heart failure type Malignant neoplasm of left breast in female, estrogen receptor negative, unspecified site of breast Healthcare maintenance- Primary Primary hypertension Unspecified essential hypertension Persistent atrial fibrillation (Multi) Atrial fibrillation Hypertriglyceridemia Pure hyperglyceridemia Familial hypercholesterolemia 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, 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 Moderate malnutrition (Multi) 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) Liver failure without hepatic coma, unspecified chronicity (Multi) Elevated LFTs Other abnormal blood chemistry Stage 3a chronic kidney disease (Multi) S/P breast reconstruction, bilateral BRCA1 positive Genetic susceptibility to malignant neoplasm of breast 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, unspecified estrogen receptor status History of breast cancer Personal history of malignant neoplasm of breast Anxiety Anxiety state, unspecified SOB (shortness of breath) Shortness of breath INGA (obstructive sleep apnea) Obstructive sleep apnea (adult) (pediatric) Abrasion Abrasion or friction burn of other, multiple, and unspecified sites, without mention of infection Routine general medical examination at health care facility Routine general medical examination at a health care facility Advance directive discussed with patient [Z71.89] Anemia, unspecified type- Primary Cellulitis of right toe Lumbar stenosis with neurogenic claudication documented in this encounter [facility] Work Phone: Evaluation note* Diagnosis Syncope and collapse- Primary Palpitations Essential hypertension Unspecified essential hypertension Bilateral carotid artery stenosis Occlusion and stenosis of carotid artery without mention of cerebral infarction Dyslipidemia Other and unspecified hyperlipidemia History of COVID-19 Syncope and collapse- Primary Palpitations Essential hypertension Unspecified essential hypertension Bilateral carotid artery stenosis Occlusion and stenosis of carotid artery without mention of cerebral infarction Dyslipidemia Other and unspecified hyperlipidemia History of COVID-19 Orthostatic hypotension Bilateral carotid artery stenosis- Primary Occlusion and stenosis of carotid artery without mention of cerebral infarction Essential hypertension Unspecified essential hypertension Dyslipidemia Other and unspecified hyperlipidemia CKD stage G2/A3, 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/g PAF (paroxysmal atrial fibrillation) (HCC)- Primary Atrial fibrillation On continuous oral anticoagulation On amiodarone therapy Elevated LFTs Other abnormal blood chemistry Chronic systolic heart failure (HCC) Chronic systolic heart failure Essential hypertension Unspecified essential hypertension Bilateral carotid artery stenosis Occlusion and stenosis of carotid artery without mention of cerebral infarction Dyslipidemia Other and unspecified hyperlipidemia CKD stage G2/A3, 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/g INGA (obstructive sleep apnea) Obstructive sleep apnea (adult) (pediatric) Obstructive sleep apnea syndrome Obstructive sleep apnea (adult) (pediatric) PAF (paroxysmal atrial fibrillation) (HCC)- Primary Atrial fibrillation On continuous oral anticoagulation On amiodarone therapy Chronic systolic heart failure (HCC) Chronic systolic heart failure Elevated LFTs Other abnormal blood chemistry Essential hypertension Unspecified essential hypertension Bilateral carotid artery stenosis Occlusion and stenosis of carotid artery without mention of cerebral infarction Dyslipidemia Other and unspecified hyperlipidemia CKD stage G2/A3, 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/g Obstructive sleep apnea syndrome Obstructive sleep apnea (adult) (pediatric) Persistent atrial fibrillation (HCC)- Primary Atrial fibrillation Heart failure with mid-range ejection fraction ([facility]) Essential hypertension Unspecified essential hypertension PAF (paroxysmal atrial fibrillation) ([facility])- Primary Atrial fibrillation Heart failure with improved ejection fraction (HFimpEF) ([facility]) Essential hypertension Unspecified essential hypertension Bilateral carotid artery stenosis Occlusion and stenosis of carotid artery without mention of cerebral infarction Dyslipidemia Other and unspecified hyperlipidemia Obstructive sleep apnea syndrome Obstructive sleep apnea (adult) (pediatric) Coronary artery calcification CRUZ (dyspnea on exertion)- Primary Other dyspnea and respiratory abnormality Heart failure with improved ejection fraction (HFimpEF) ([facility]) PAF (paroxysmal atrial fibrillation) ([facility]) Atrial fibrillation Essential hypertension Unspecified essential hypertension Bilateral carotid artery stenosis Occlusion and stenosis of carotid artery without mention of cerebral infarction Dyslipidemia Other and unspecified hyperlipidemia Obstructive sleep apnea syndrome Obstructive sleep apnea (adult) (pediatric) Heart failure with improved ejection fraction (HFimpEF) ([facility])- Primary PAF (paroxysmal atrial fibrillation) ([facility]) Atrial fibrillation Dyslipidemia Other and unspecified hyperlipidemia Essential hypertension Unspecified essential hypertension Bilateral carotid artery stenosis Occlusion and stenosis of carotid artery without mention of cerebral infarction CKD stage G2/A3, 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/g Weight loss Loss of weight Anemia, unspecified type- Primary [facility] Diagnosis Spinal stenosis of cervical region Spinal stenosis in cervical region Spinal stenosis of cervical region- Primary Spinal stenosis in cervical region [facility] Diagnosis Spinal stenosis of cervical region Spinal stenosis in cervical region Spinal stenosis of cervical region- Primary Spinal stenosis in cervical region [facility] Diagnosis Spinal stenosis of lumbar region with neurogenic claudication Spinal stenosis, lumbar region, with neurogenic claudication Spinal stenosis of cervical region- Primary Spinal stenosis in cervical region [facility] Diagnosis Debility- Primary Unspecified debility Healthcare maintenance Familial hypercholesterolemia Hypertriglyceridemia Pure hyperglyceridemia INGA (obstructive sleep apnea) Obstructive sleep apnea (adult) (pediatric) Primary hypertension Unspecified essential hypertension 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 without complication, with long-term current use of insulin Routine general medical examination at health care facility Routine general medical examination at a health care facility 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, unspecified estrogen receptor status 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 with 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, without long-term current use of insulin Vasovagal syncope Syncope and collapse Acute cough Left shoulder pain, unspecified chronicity Healthcare maintenance- Primary Familial hypercholesterolemia Hypertriglyceridemia Pure hyperglyceridemia Primary hypertension Unspecified essential hypertension 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 with 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, unspecified whether retirement insulin use 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) 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, unspecified estrogen receptor status Anxiety Anxiety state, unspecified Gout, unspecified cause, unspecified chronicity, unspecified site Encounter for screening mammogram for breast cancer Routine general medical examination at health care facility Routine general medical examination at a health care facility Cardiac risk counseling [Z71.89] Advance directive discussed with patient [Z71.89] Encounter for screening for other disorder [Z13.89] Chest pain, unspecified type- Primary Dyspnea, unspecified type Persistent atrial fibrillation (Multi) Atrial fibrillation 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) Stage 3a chronic kidney disease (Multi) Acute heart failure, unspecified heart failure type Malignant neoplasm of left breast in female, estrogen receptor negative, unspecified site of breast Healthcare maintenance- Primary Primary hypertension Unspecified essential hypertension Persistent atrial fibrillation (Multi) Atrial fibrillation Hypertriglyceridemia Pure hyperglyceridemia Familial hypercholesterolemia 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, 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 Moderate malnutrition (Multi) 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) Liver failure without hepatic coma, unspecified chronicity (Multi) Elevated LFTs Other abnormal blood chemistry Stage 3a chronic kidney disease (Multi) S/P breast reconstruction, bilateral BRCA1 positive Genetic susceptibility to malignant neoplasm of breast 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, unspecified estrogen receptor status History of breast cancer Personal history of malignant neoplasm of breast Anxiety Anxiety state, unspecified SOB (shortness of breath) Shortness of breath INGA (obstructive sleep apnea) Obstructive sleep apnea (adult) (pediatric) Abrasion Abrasion or friction burn of other, multiple, and unspecified sites, without mention of infection Routine general medical examination at health care facility Routine general medical examination at a health care facility Advance directive discussed with patient [Z71.89] Cellulitis of right toe- Primary Iron deficiency anemia, unspecified iron deficiency anemia type documented in this encounter [facility] Work Phone: Evaluation note* Diagnosis Spinal stenosis of cervical region Spinal stenosis in cervical region Spinal stenosis of cervical region- Primary Spinal stenosis in cervical region Spinal stenosis of lumbar region with neurogenic claudication Spinal stenosis, lumbar region, with neurogenic claudication [facility] Spinal stenosis in cervical region- Primary Spinal stenosis in cervical region Spinal stenosis of lumbar region with neurogenic claudication Spinal stenosis, lumbar region, with neurogenic claudication [facility] Diagnosis Spinal stenosis of lumbar region with neurogenic claudication- Primary Spinal stenosis, lumbar region, with neurogenic claudication Spinal stenosis in cervical region Spinal stenosis of lumbar region with neurogenic claudication Spinal stenosis, lumbar region, with neurogenic claudication [facility] Diagnosis Spinal stenosis of cervical region- Primary Spinal stenosis in cervical region Spinal stenosis of lumbar region with neurogenic claudication Spinal stenosis, lumbar region, with neurogenic claudication Spinal stenosis in cervical region Spinal stenosis of lumbar region with neurogenic claudication Spinal stenosis, lumbar region, with neurogenic claudication [facility] Diagnosis Spinal stenosis of cervical region- Primary Spinal stenosis in cervical region Spinal stenosis of lumbar region with neurogenic claudication Spinal stenosis, lumbar region, with neurogenic claudication Spinal stenosis in cervical region Spinal stenosis of lumbar region with neurogenic claudication Spinal stenosis, lumbar region, with neurogenic claudication [facility] Diagnosis Spinal stenosis of lumbar region with neurogenic claudication- Primary Spinal stenosis, lumbar region, with neurogenic claudication Spinal stenosis of cervical region Spinal stenosis in cervical region Spinal stenosis in cervical region Spinal stenosis of lumbar region with neurogenic claudication Spinal stenosis, lumbar region, with neurogenic claudication [facility] Debility- Primary Unspecified debility Healthcare maintenance Familial hypercholesterolemia Hypertriglyceridemia Pure hyperglyceridemia INGA (obstructive sleep apnea) Obstructive sleep apnea (adult) (pediatric) Primary hypertension Unspecified essential hypertension 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 without complication, with long-term current use of insulin Routine general medical examination at health care facility Routine general medical examination at a health care facility 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, unspecified estrogen receptor status 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 with 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, without long-term current use of insulin Vasovagal syncope Syncope and collapse Acute cough Left shoulder pain, unspecified chronicity Healthcare maintenance- Primary Familial hypercholesterolemia Hypertriglyceridemia Pure hyperglyceridemia Primary hypertension Unspecified essential hypertension 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 with 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, 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) 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, unspecified estrogen receptor status Anxiety Anxiety state, unspecified Gout, unspecified cause, unspecified chronicity, unspecified site Encounter for screening mammogram for breast cancer Routine general medical examination at health care facility Routine general medical examination at a [facility] care facility Cardiac risk counseling [Z71.89] Advance directive discussed with patient [Z71.89] Encounter for screening for other disorder [Z13.89] Chest pain, unspecified type- Primary Dyspnea, unspecified type Persistent atrial fibrillation (Multi) Atrial fibrillation 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) Stage 3a chronic kidney disease (Multi) Acute heart failure, unspecified heart failure type Malignant neoplasm of left breast in female, estrogen receptor negative, unspecified site of breast Healthcare maintenance- Primary Primary hypertension Unspecified essential hypertension Persistent atrial fibrillation (Multi) Atrial fibrillation Hypertriglyceridemia Pure hyperglyceridemia Familial hypercholesterolemia 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, unspecified whether retirement insulin use Moderate malnutrition (Multi) 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) Liver failure without hepatic coma, unspecified chronicity (Multi) Elevated LFTs Other abnormal blood chemistry Stage 3a chronic kidney disease (Multi) S/P breast reconstruction, bilateral BRCA1 positive Genetic susceptibility to malignant neoplasm of breast 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, unspecified estrogen receptor status History of breast cancer Personal history of malignant neoplasm of breast Anxiety Anxiety state, unspecified SOB (shortness of breath) Shortness of breath INGA (obstructive sleep apnea) Obstructive sleep apnea (adult) (pediatric) Abrasion Abrasion or friction burn of other, multiple, and unspecified sites, without mention of infection Routine general medical examination at health care facility Routine general medical examination at a health care facility Advance directive discussed with patient [Z71.89] Cellulitis of right toe- Primary documented in this encounter [facility] Work Phone: Evaluation note* Diagnosis Spinal stenosis of cervical region- Primary Spinal stenosis in cervical region Spinal stenosis in cervical region Spinal stenosis of lumbar region with neurogenic claudication Spinal stenosis, lumbar region, with neurogenic claudication [facility] Spinal stenosis of cervical region- Primary Spinal stenosis in cervical region Spinal stenosis in cervical region Spinal stenosis of lumbar region with neurogenic claudication Spinal stenosis, lumbar region, with neurogenic claudication [facility] Diagnosis Syncope and collapse- Primary Palpitations Essential hypertension Unspecified essential hypertension Bilateral carotid artery stenosis Occlusion and stenosis of carotid artery without mention of cerebral infarction Dyslipidemia Other and unspecified hyperlipidemia History of COVID-19 Syncope and collapse- Primary Palpitations Essential hypertension Unspecified essential hypertension Bilateral carotid artery stenosis Occlusion and stenosis of carotid artery without mention of cerebral infarction Dyslipidemia Other and unspecified hyperlipidemia History of COVID-19 Orthostatic hypotension Bilateral carotid artery stenosis- Primary Occlusion and stenosis of carotid artery without mention of cerebral infarction Essential hypertension Unspecified essential hypertension Dyslipidemia Other and unspecified hyperlipidemia CKD stage G2/A3, 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/g PAF (paroxysmal atrial fibrillation) ([facility])- Primary Atrial fibrillation On continuous oral anticoagulation On amiodarone therapy Elevated LFTs Other abnormal blood chemistry Chronic systolic heart failure (HCC) Chronic systolic heart failure Essential hypertension Unspecified essential hypertension Bilateral carotid artery stenosis Occlusion and stenosis of carotid artery without mention of cerebral infarction Dyslipidemia Other and unspecified hyperlipidemia CKD stage G2/A3, 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/g INGA (obstructive sleep apnea) Obstructive sleep apnea (adult) (pediatric) Obstructive sleep apnea syndrome Obstructive sleep apnea (adult) (pediatric) PAF (paroxysmal atrial fibrillation) ([facility])- Primary Atrial fibrillation On continuous oral anticoagulation On amiodarone therapy Chronic systolic heart failure ([facility]) Chronic systolic heart failure Elevated LFTs Other abnormal blood chemistry Essential hypertension Unspecified essential hypertension Bilateral carotid artery stenosis Occlusion and stenosis of carotid artery without mention of cerebral infarction Dyslipidemia Other and unspecified hyperlipidemia CKD stage G2/A3, 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/g Obstructive sleep apnea syndrome Obstructive sleep apnea (adult) (pediatric) Persistent atrial fibrillation ([facility])- Primary Atrial fibrillation Heart failure with mid-range ejection fraction ([facility]) Essential hypertension Unspecified essential hypertension PAF (paroxysmal atrial fibrillation) ([facility])- Primary Atrial fibrillation Heart failure with improved ejection fraction (HFimpEF) ([facility]) Essential hypertension Unspecified essential hypertension Bilateral carotid artery stenosis Occlusion and stenosis of carotid artery without mention of cerebral infarction Dyslipidemia Other and unspecified hyperlipidemia Obstructive sleep apnea syndrome Obstructive sleep apnea (adult) (pediatric) Coronary artery calcification CRUZ (dyspnea on exertion)- Primary Other dyspnea and respiratory abnormality Heart failure with improved ejection fraction (HFimpEF) ([facility]) PAF (paroxysmal atrial fibrillation) ([facility]) Atrial fibrillation Essential hypertension Unspecified essential hypertension Bilateral carotid artery stenosis Occlusion and stenosis of carotid artery without mention of cerebral infarction Dyslipidemia Other and unspecified hyperlipidemia Obstructive sleep apnea syndrome Obstructive sleep apnea (adult) (pediatric) Heart failure with improved ejection fraction (HFimpEF) ([facility])- Primary PAF (paroxysmal atrial fibrillation) ([facility]) Atrial fibrillation Dyslipidemia Other and unspecified hyperlipidemia Essential hypertension Unspecified essential hypertension Bilateral carotid artery stenosis Occlusion and stenosis of carotid artery without mention of cerebral infarction CKD stage G2/A3, 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/g Weight loss Loss of weight Essential hypertension Unspecified essential hypertension documented in this encounter [facility] note* Diagnosis Spinal stenosis of cervical region- Primary Spinal stenosis in cervical region Preop examination- Primary Preoperative examination, unspecified Spinal stenosis in cervical region PAF (paroxysmal atrial fibrillation) ([facility]) Atrial fibrillation Essential (primary) hypertension Unspecified essential hypertension Chronic systolic heart failure (HCC) Chronic systolic heart failure 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 with other specified complication, without long-term current use of insulin (HCC) Dyslipidemia Other and unspecified hyperlipidemia Obstructive sleep apnea syndrome Obstructive sleep apnea (adult) (pediatric) Chronic obstructive pulmonary disease, unspecified COPD type (HCC) Stage 3a chronic kidney disease (HCC) Pulmonary hypertension (HCC) Other chronic pulmonary heart diseases Spinal stenosis in cervical region Spinal stenosis of lumbar region with neurogenic claudication Spinal stenosis, lumbar region, with neurogenic claudication documented in this encounter [facility] note* Diagnosis Stenosis of cervical spine with myelopathy ([facility]) Preop examination- Primary Preoperative examination, unspecified Spinal stenosis in cervical region PAF (paroxysmal atrial fibrillation) (HCC) Atrial fibrillation Essential (primary) hypertension Unspecified essential hypertension Chronic systolic heart failure (HCC) Chronic systolic heart failure 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 with other specified complication, without long-term current use of insulin (HCC) Dyslipidemia Other and unspecified hyperlipidemia Obstructive sleep apnea syndrome Obstructive sleep apnea (adult) (pediatric) Chronic obstructive pulmonary disease, unspecified COPD type (HCC) Stage 3a chronic kidney disease (HCC) Pulmonary hypertension (HCC) Other chronic pulmonary heart diseases Bilateral carotid artery stenosis Occlusion and stenosis of carotid artery without mention of cerebral infarction Iron deficiency anemia, unspecified iron deficiency anemia type Spinal stenosis of cervical region Spinal stenosis in cervical region PVD (peripheral vascular disease) Peripheral vascular disease, unspecified Spinal stenosis in cervical region Spinal stenosis of lumbar region with neurogenic claudication Spinal stenosis, lumbar region, with neurogenic claudication [facility] Preop examination- Primary Preoperative examination, unspecified Spinal stenosis in cervical region PAF (paroxysmal atrial fibrillation) ([facility]) Atrial fibrillation Essential (primary) hypertension Unspecified essential hypertension Chronic systolic heart failure (HCC) Chronic systolic heart failure 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 with other specified complication, without long-term current use of insulin (HCC) Dyslipidemia Other and unspecified hyperlipidemia Obstructive sleep apnea syndrome Obstructive sleep apnea (adult) (pediatric) Chronic obstructive pulmonary disease, unspecified COPD type ([facility]) Stage 3a chronic kidney disease (HCC) Pulmonary hypertension (HCC) Other chronic pulmonary heart diseases Bilateral carotid artery stenosis Occlusion and stenosis of carotid artery without mention of cerebral infarction Iron deficiency anemia, unspecified iron deficiency anemia type Spinal stenosis of cervical region Spinal stenosis in cervical region PVD (peripheral vascular disease) Peripheral vascular disease, unspecified Spinal stenosis in cervical region Spinal stenosis of lumbar region with neurogenic claudication Spinal stenosis, lumbar region, with neurogenic claudication * Assessment & Plan Note - Eden Lynch APRN.CNP - 03/10/2025 3:17 PM EDT Associated Problem(s): PVD (peripheral vascular disease) On Pletal Some right leg pain when walking, edema at right ankle Following vascular provider in [place] * Assessment & Plan Note - Eden Lynch APRN.CNP - 03/10/2025 1:20 PM EDT Associated Problem(s): Anemia Blood transfusion x2 on 01/17/25 and iron transfusion x1 Following PCP on identifying cause of anemia On oral iron supplement 02/20/25 H&H 7.8/26.4 CBC today * Assessment & Plan Note - Eden Lynch APRN.CNP - 03/10/2025 1:15 PM EDT Associated Problem(s): Bilateral carotid artery stenosis S/p right CEA * Assessment & Plan Note - Eden Lynch APRN.CNP - 03/09/2025 4:08 PM EDT Associated Problem(s): Pulmonary hypertension (HCC) ECHO 07/25/24 showed RVSP of 72mmHg, normal RV function Follow pulmonology [facility] 12/28/24 - optimization in scanned doc ECHO 07/25/24 Left Ventricle: Left ventricle size is normal. Normal wall thickness. Normal left ventricular systolic function. EF by 2D [employer]ons Biplane is 55%. Normal wall motion. Grade II diastolic dysfunction with increased LAP. Right Ventricle: Right ventricle size is normal. Normal systolic function. Aortic Valve: Mild (1+) regurgitation. Mild stenosis of the aortic valve. AV mean gradient is 7 mmHg. Mitral Valve: Moderately thickened leaflets. Mildly calcified leaflets. Mild annular calcification.Moderate (2+) regurgitation with a posterior directed jet. Mild stenosis noted. Tricuspid Valve: Mild to moderate (1-2+) regurgitation. RVSP is 72 mmHg. * Assessment & Plan Note - Eden Lynch APRN.CNP - 03/09/2025 3:44 PM EDT Associated Problem(s): Stage 3 chronic kidney disease (HCC) Kerendia 11/25/24 Pipe Insulator 0.98, GFR 59 * Assessment & Plan Note - Eden Lynch APRN.CNP - 03/09/2025 3:44 PM EDT Associated Problem(s): COPD (chronic obstructive pulmonary disease) (HCC) Spiriva, and uses rescue inhaler as needed Hospitalizations: 08/2024 with PNA; 10/2024 ED visit with flu and dyspnea, improved 11/08/24 CXR showed no acute cardiopulmonary process Patient reports Shortness of Breath on exertion, no home O2 use Today SpO2 99% on RA, Lung sound CTA Instructed to use inhalers as prescribed and bring to DOS * Assessment & Plan Note - Eden Lynch APRN.CNP - 03/09/2025 3:42 PM EDT Associated Problem(s): Obstructive sleep apnea syndrome Complaint with APAP Instructed patient to bring APAP to DOS * Assessment & Plan Note - Eden Lynch APRN.CNP - 03/09/2025 3:41 PM EDT Associated Problem(s): Dyslipidemia On Zetia, Vascepa Instructed to stop Vascepa 7 days before surgery * Assessment & Plan Note - Eden Lynch APRN.CNP - 03/09/2025 3:33 PM EDT Associated Problem(s): 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 (HCC) Jentadueto - instructed to hold DOS 01/27/25 A1C 6.0 * Assessment & Plan Note - Eden Lynch APRN.CNP - 03/09/2025 3:27 PM EDT Associated Problem(s): Chronic systolic heart failure (HCC) Improved EF to 58% on stress test 01/16/25 On carvedilol, lasix, losartan Patient reports Shortness of Breath on exertion at baseline, worsen with ongoing anemia Follow [employer] Dr. Jerome ECHO 01/16/25 Stress Combined Conclusion: Normal pharmacological myocardial perfusion study. Findings suggest a low risk of cardiac events. Perfusion Comments: LV perfusion is probably normal at rest. LV perfusion is probably normal with stress. There is no evidence of inducible ischemia. Perfusion Defect: There is a mild severity left ventricular stress perfusion defect that is medium in size present in the inferior segment(s) that is fixed. The defect is consistent with abnormal perfusion in the RCA territory. There is normal wall motion in the defect area. The defect appears to be an artifact caused by motion. Stress Function: Left ventricular function post-stress is normal. Post-stress ejection fraction is 58%. No regional wall motion abnormalities. Stress ECG: Conclusion: The stress test is normal. * Assessment & Plan Note - Eden Lynch APRN.CNP - 03/09/2025 3:23 PM EDT Associated Problem(s): Essential (primary) hypertension Controlled on amlodipine, carvedilol, lasix, losartan Instructed to take amlodipine, carvedilol and hold lasix, losartan DOS. Last 14 BP Last 14 Encounter BP Readings: Date: BP: 02/15/2025 113/61 02/08/2025 152/70 01/18/2025 113/49[Patient states that her bottom numbers have been low for quite some time[ 09/16/2023 163/67 08/13/2023 147/67 * Assessment & Plan Note - Eden Lynch APRN.CNP - 03/09/2025 3:23 PM EDT Associated Problem(s): PAF (paroxysmal atrial fibrillation) ([facility]) s/p PVI + PWI, and ablation of atypical flutter with anterior mitral line 04/2024 Stable on carvedilol, Eliquis Follow cardiology Dr. Jerome [facility] 12/12/24 EKG 12/12/24 showed Sinus Rhythm in care everywhere EKG today - NSR * Assessment & Plan Note - Eden Lynch APRN.CNP - 03/09/2025 3:16 PM EDT Associated Problem(s): Spinal stenosis in cervical region See HPI, surgery scheduled 03/30/25 * Assessment & Plan Note - Eden Lynch APRN.CNP - 03/09/2025 3:16 PM EDT Associated Problem(s): Preop examination See note for medical conditions which may affect hodan-operative course addressed in visit today. [facility] Pharmacy Clinical Interventions: * Medication education provided: Jentadueto counseling * Additional monitoring: SMBGs * Interaction(s): Drug-Drug: assessed * New medication(s) initiated: START Jentadueto STOP glipizide and Januvia (once supply is gone) * Medication adherence: assessed * Time Spent on Encounter: 21 - 30 Minutes [facility] [place] [phone] [place] Work Phone: History of Present illness Narrative* The patient is being seen for the subsequent annual wellness visit. * Past Medical, Surgical and Family History: reviewed and updated in chart. * Interval History: Patient has not been hospitalized previously. * Medications and Supplements: Review of all medications by a prescribing practitioner or clinical pharmacist (such as prescriptions, OTCs, herbal therapies and supplements) documented in the medical record. * No, the patient is not using opioids. * Patient Self Assessment of Health Status: good. * Tobacco use: Non-User * Alcohol use: User bottle of wine/day. * Illicit drug use: Non-User * Current diet: well balanced diet, Diabetic Diet, does consume adequate fluids and does consume caffeine. * Exercise Frequency: the patient does not exercise. * Depression/Suicide Screening: Patient has a current diagnosis of depression . * During the past 2 weeks, the patient has not felt down, depressed or hopeless. * During the past 2 weeks, the patient has not felt little interest or pleasure in doing things. * Hearing Impairment: Patient has slight hearing impairment, on the right. * Cognitive Impairment: No cognitive impairment observed. * Bathing: performs independently. * Dressing: performs independently. * Walking: performs independently. * Toileting: performs independently. * Feeding: performs independently. * Personal Hygiene: performs independently. * Bowels: continent. * Bladder: occasional accident. * Managing Finances: needs assistance. * Shopping: performs independently. * Managing Medications: performs independently. * Housework / Basic Home Maintenance: performs independently. * Handling Transportation: performs independently. * Preparing Meals: performs independently. * Using the Telephone/ Communication Devices: performs independently. * Falls Risk Screening:. ROLANDO has not fallen in the last 6 months. Her fall did not result in injury. * Home safety risk factors: none. * Advance directives:. Patient has no living will. Patient has no healthcare POA. * Patient presents for physical exam. * Fam Hx * Mom () , * Dad () , * Exercise walks * ETOH denies * Caffeine 2-3 cups of coffee/daily * Tobacco denies * Dr. Jerome, [employer] * Mammogram due 2021 * DEXA osteoporosis 2016 normal due 2025 * Colonoscopy Dr. Gavin due 2021 * Patient denies other complaints. * There are spiritual/cultural practices/values/needs that are important to know: fuse coiler come in to see her before she dies, recieve sacrament of sick * Initial Fall Risk Screening: * ROLANDO has not fallen in the last 6 months. Her fall did not result in injury. ROLANDO does not have afear of falling. She does not need assistance with sitting, standing or walking. Does not need assistance walking in her home. She does not need assistance in an unfamiliar setting. * Advance directives: * Living Will: No living will on file. * Healthcare POA: No healthcare proxy on file. * Declaration of Mental Health Treatment: No mental health treatment on file. * Domestic Violence Screen: Does not feel threatened or abused physically, emotionally or sexually. Do you feel UNSAFE? * The patient feels safe in the home. * Depression/Suicide Screening: * During the past 2 weeks, the patient has not felt down, depressed or hopeless. * During the past 2 weeks, the patient has not felt little interest or pleasure in doing things. * She has no thoughts of harming self. * She has not had thoughts of harming others. * Single alcohol screening question: * In the past year the patient has had 5 or more drinks (men) or 4 or more drinks (women)? 0 time(s). * Single substance abuse screening question: * In the past year the patient has used a recreational drug or used a prescription drug for non-medical reasons? 0 time(s). * Procedure or Sedation Areas: * patient has not had alcohol, recreational drugs, or prescription drugs for non-medical reasons thismorning. * Nutrition Screening: * In the past month, there was not a day when I or anyone in my family went hungry because there was not enough food. * Patient Education: The patient denies that they or the person with them has problems with hearing, speaking, seeing, moving around or learning * The patient is not comfortable filling out medical forms. [facility] Work Phone: History of Present illness Narrative* Primary Care Pharmacy Clinical Interventions: * Medication education provided: * Additional monitoring: smbgs * Medication dose adjustment(s): Jentadueto dose increase * Interaction(s): Drug-Drug: assessed * Medication adherence: assessed * Time Spent on Encounter: 21 - 30 Minutes [facility] [address] Work Phone: History of Present illness Narrative* The patient is being seen for the subsequent annual wellness visit. * Past Medical, Surgical and Family History: reviewed and updated in chart. * Interval History: Patient has not been hospitalized previously. * Medications and Supplements: Review of all medications by a prescribing practitioner or clinical pharmacist (such as prescriptions, OTCs, herbal therapies and supplements) documented in the medical record. * No, the patient is not using opioids. * Patient Self Assessment of Health Status: good. * Tobacco use: Non-User * Alcohol use: User bottle of wine/day. * Illicit drug use: Non-User * Current diet: well balanced diet, Diabetic Diet, does consume adequate fluids and does consume caffeine. * Exercise Frequency: the patient does not exercise. * Depression/Suicide Screening: Patient has a current diagnosis of depression . * During the past 2 weeks, the patient has not felt down, depressed or hopeless. * During the past 2 weeks, the patient has not felt little interest or pleasure in doing things. * Hearing Impairment: Patient has slight hearing impairment, on the right. * Cognitive Impairment: No cognitive impairment observed. * Bathing: performs independently. * Dressing: performs independently. * Walking: performs independently. * Toileting: performs independently. * Feeding: performs independently. * Personal Hygiene: performs independently. * Bowels: continent. * Bladder: occasional accident. * Managing Finances: needs assistance. * Shopping: performs independently. * Managing Medications: performs independently. * Housework / Basic Home Maintenance: performs independently. * Handling Transportation: performs independently. * Preparing Meals: performs independently. * Using the Telephone/ Communication Devices: performs independently. * Falls Risk Screening:. ROLANDO has not fallen in the last 6 months. Her fall did not result in injury. * Home safety risk factors: none. * Advance directives:. Patient has no living will. Patient has no healthcare POA. * Patient presents for physical exam. * Fam Hx * Mom () , * Dad () , * Exercise walks * ETOH denies * Caffeine 2-3 cups of coffee/daily * Tobacco denies * Dr. Jerome, [employer] * Mammogram due 2021 * DEXA osteoporosis 2016 normal due 2025 * Colonoscopy Dr. Gavin due 2021 * Patient denies other complaints. * There are spiritual/cultural practices/values/needs that are important to know: fuse coiler come in to see her before she dies, recieve sacrament of sick * Initial Fall Risk Screening: * ROLANDO has not fallen in the last 6 months. Her fall did not result in injury. ROLANDO does not have afear of falling. She does not need assistance with sitting, standing or walking. Does not need assistance walking in her home. She does not need assistance in an unfamiliar setting. * Advance directives: * Living Will: No living will on file. * Healthcare POA: No healthcare proxy on file. * Declaration of Mental Health Treatment: No mental health treatment on file. * Domestic Violence Screen: Does not feel threatened or abused physically, emotionally or sexually. Do you feel UNSAFE? * The patient feels safe in the home. * Depression/Suicide Screening: * During the past 2 weeks, the patient has not felt down, depressed or hopeless. * During the past 2 weeks, the patient has not felt little interest or pleasure in doing things. * She has no thoughts of harming self. * She has not had thoughts of harming others. * Single alcohol screening question: * In the past year the patient has had 5 or more drinks (men) or 4 or more drinks (women)? 0 time(s). * Single substance abuse screening question: * In the past year the patient has used a recreational drug or used a prescription drug for non-medical reasons? 0 time(s). * Procedure or Sedation Areas: * patient has not had alcohol, recreational drugs, or prescription drugs for non-medical reasons thismorning. * Nutrition Screening: * In the past month, there was not a day when I or anyone in my family went hungry because there was not enough food. * Patient Education: The patient denies that they or the person with them has problems with hearing, speaking, seeing, moving around or learning * The patient is not comfortable filling out medical forms. [facility] Work Phone: History of Present illness Narrative* This is a 76 year old female here for symptoms of cough. for 1 week. * Nasal congestion: yes * Nasal drainage: yes * Sore throat: no * Swollen glands: Negative * Cough: Yes * Productive: yes * Color: thick yellow * Blood in cough phlegm: Negative * Wheezing: yes * Shortness of breath: yes * Chest pain: Negative * Heartburn: Negative * Belching: Negative * Fever: Negative * Recent out of country travel: Negative * Robitussin might be helping. * All other systems have been reviewed and are negative for complaint as noted in HPI. [facility] Work Phone: History of Present illness Narrative* Started symptoms yesterday. Patient's had nasal drainage congestion little bit of sore throat. Now getting little bit of cough and congestion. * Patient did a COVID test this morning that was positive. * Patient's had no shortness of breath no high fever or shaking chills. * Patient's had 4 vaccinations for COVID. * Patient's had no troubles with nausea no vomiting no loss of smell or taste. [facility] Work Phone: History of Present illness Narrative* Celia Al, DO - 10/03/2024 12:00 PM EST Subjective Patient ID: Rolando Peters is a 79 y.o. female who presents for Cough (With chest congestion, nasaldrainage, low grade temp 99.3. X Thursday evening. Neg for covid yesterday. ). HPI Thursday am she had a sore throat and some hoarseness. She has been hacking and low grade fever. She has tested for covid and it was negative yesterday. She is wheezing slightly. Review of Systems Constitutional: Negative for activity change, appetite change, fatigue and fever. HENT: Positive for congestion. Respiratory: Positive for cough. Negative for choking and chest tightness. Cardiovascular: Negative for chest pain, palpitations and leg swelling. Musculoskeletal: Positive for myalgias. Negative for arthralgias, back pain and gait problem. Skin: Negative for color change and pallor. Neurological: Negative for dizziness, facial asymmetry, light-headedness and headaches. Objective There were no vitals taken for this visit. BSA There is no height or weight on file to calculate BSA. Physical Exam Constitutional: Appearance: Normal appearance. Neurological: Mental Status: She is alert. Lab on 08/02/2024 Component Date Value Ref Range Status Glucose 08/02/2024 103 (H) 74 - 99 mg/dL Final Sodium 08/02/2024 137 136 - 145 mmol/L Final Potassium 08/02/2024 4.9 3.5 - 5.3 mmol/L Final Chloride 08/02/2024 106 98 - 107 mmol/L Final Bicarbonate 08/02/2024 22 21 - 32 mmol/L Final Anion Gap 08/02/2024 14 10 - 20 mmol/L Final Urea Nitrogen 08/02/2024 15 6 - 23 mg/dL Final Creatinine 08/02/2024 1.01 0.50 - 1.05 mg/dL Final eGFR 08/02/2024 57 (L) >60 mL/min/1.73m*2 Final Calculations of estimated GFR are performed using the 2020 CKD-EPI Study Refit equation without therace variable for the IDMS-Traceable creatinine methods. https://jasn.asnjournals.org/content/early//ASN.4776112413 Calcium 08/02/2024 8.9 8.6 - 10.6 mg/dL Final Albumin 08/02/2024 4.0 3.4 - 5.0 g/dL Final Alkaline Phosphatase 08/02/2024 46 33 - 136 U/L Final Total Protein 08/02/2024 6.5 6.4 - 8.2 g/dL Final AST 08/02/2024 26 9 - 39 U/L Final Bilirubin, Total 08/02/2024 0.5 0.0 - 1.2 mg/dL Final ALT 08/02/2024 24 7 - 45 U/L Final Patients treated with Sulfasalazine may generate falsely decreased results for ALT. Thyroid Stimulating Hormone 08/02/2024 1.42 0.44 - 3.98 mIU/L Final Magnesium 08/02/2024 1.99 1.60 - 2.40 mg/dL Final Phosphorus 08/02/2024 4.8 2.5 - 4.9 mg/dL Final The performance characteristics of phosphorus testing in heparinized plasma have been validated by the individual laboratory site where testing is performed. Testing on heparinized plasma is not approved by the FDA; however, such approval is not necessary. Vitamin B12 08/02/2024 207 (L) 211 - 911 pg/mL Final Folate, Serum 08/02/2024 23.5 >5.0 ng/mL Final Methylmalonic Acid, S 08/02/2024 0.25 0.00 - 0.40 umol/L Final INTERPRETIVE INFORMATION: MMA Serum/Plasma, Vitamin B12 Status This test was developed and its performance characteristics determined by [facility]. It has not been cleared or approved by the US Food and Drug Administration. This test was performed in a CLIA certified laboratory and is intended for clinical purposes. Performed By: [facility] [address] [place] [id number] Needle Punch Operator: Rosalee Upton MD, PhD CLIA Number: [id number] Iron 08/02/2024 45 35 - 150 ug/dL Final UIBC 08/02/2024 354 110 - 370 ug/dL Final TIBC 08/02/2024 399 240 - 445 ug/dL Final % Saturation 08/02/2024 11 (L) 25 - 45 % Final Ferritin 08/02/2024 71 8 - 150 ng/mL Final Lab on 06/13/2024 Component Date Value Ref Range Status Albumin, Urine Random 06/13/2024 1,587.3 Not established mg/L Final Creatinine, Urine Random 06/13/2024 67.3 20.0 - 320.0 mg/dL Final Albumin/Creatinine Ratio 06/13/2024 2,358.5 (H) <30.0 ug/mg Creat Final Glucose 06/13/2024 137 (H) 74 - 99 mg/dL Final Sodium 06/13/2024 137 136 - 145 mmol/L Final Potassium 06/13/2024 4.6 3.5 - 5.3 mmol/L Final Chloride 06/13/2024 103 98 - 107 mmol/L Final Bicarbonate 06/13/2024 22 21 - 32 mmol/L Final Anion Gap 06/13/2024 17 10 - 20 mmol/L Final Urea Nitrogen 06/13/2024 16 6 - 23 mg/dL Final Creatinine 06/13/2024 1.03 0.50 - 1.05 mg/dL Final eGFR 06/13/2024 56 (L) >60 mL/min/1.73m*2 Final Calculations of estimated GFR are performed using the 2020 CKD-EPI Study Refit equation without therace variable for the IDMS-Traceable creatinine methods. https://jasn.asnjournals.org/content///ASN.0687754458 Calcium 06/13/2024 8.7 8.6 - 10.6 mg/dL Final Albumin 06/13/2024 4.0 3.4 - 5.0 g/dL Final Alkaline Phosphatase 06/13/2024 49 33 - 136 U/L Final Total Protein 06/13/2024 6.2 (L) 6.4 - 8.2 g/dL Final AST 06/13/2024 23 9 - 39 U/L Final Bilirubin, Total 06/13/2024 0.5 0.0 - 1.2 mg/dL Final ALT 06/13/2024 36 7 - 45 U/L Final Patients treated with Sulfasalazine may generate falsely decreased results for ALT. Hemoglobin A1C 06/13/2024 5.5 See comment % Final Estimated Average Glucose 06/13/2024 111 Not Established mg/dL Final WBC 06/13/2024 5.3 4.4 - 11.3 x10*3/uL Final nRBC 06/13/2024 0.0 0.0 - 0.0 /100 WBCs Final RBC 06/13/2024 3.35 (L) 4.00 - 5.20 x10*6/uL Final Hemoglobin 06/13/2024 9.7 (L) 12.0 - 16.0 g/dL Final Hematocrit 06/13/2024 30.8 (L) 36.0 - 46.0 % Final MCV 06/13/2024 92 80 - 100 fL Final MCH 06/13/2024 29.0 26.0 - 34.0 pg Final MCHC 06/13/2024 31.5 (L) 32.0 - 36.0 g/dL Final RDW 06/13/2024 13.0 11.5 - 14.5 % Final Platelets 06/13/2024 204 150 - 450 x10*3/uL Final Neutrophils % 06/13/2024 74.1 40.0 - 80.0 % Final Immature Granulocytes %, Automated 06/13/2024 0.4 0.0 - 0.9 % Final Immature Granulocyte Count (IG) includes promyelocytes, myelocytes and metamyelocytes but does not include bands. Percent differential counts (%) should be interpreted in the context of the absolute cell counts (cells/UL). Lymphocytes % 06/13/2024 14.1 13.0 - 44.0 % Final Monocytes % 06/13/2024 7.7 2.0 - 10.0 % Final Eosinophils % 06/13/2024 2.4 0.0 - 6.0 % Final Basophils % 06/13/2024 1.3 0.0 - 2.0 % Final Neutrophils Absolute 06/13/2024 3.93 1.60 - 5.50 x10*3/uL Final Percent differential counts (%) should be interpreted in the context of the absolute cell counts (cells/uL). Immature Granulocytes Absolute, Au* 06/13/2024 0.02 0.00 - 0.50 x10*3/uL Final Lymphocytes Absolute 06/13/2024 0.75 (L) 0.80 - 3.00 x10*3/uL Final Monocytes Absolute 06/13/2024 0.41 0.05 - 0.80 x10*3/uL Final Eosinophils Absolute 06/13/2024 0.13 0.00 - 0.40 x10*3/uL Final Basophils Absolute 06/13/2024 0.07 0.00 - 0.10 x10*3/uL Final WERO 06/13/2024 Negative Negative Final The Antinuclear Antibody (WERO) test was performed using indirect immunofluorescence assay with HEp-2 cells slide. Rheumatoid Factor 06/13/2024 <10 0 - 15 IU/mL Final Citrulline Antibody, IgG 06/13/2024 <1 <3 U/mL Final NEGATIVE < 3 U/ML POSITIVE >=3 U/ML ANCA IFA Titer 06/13/2024 <1:20 <1:20 Final ANCA IFA Pattern 06/13/2024 None Detected None Detected Final INTERPRETIVE INFORMATION: ANCA IFA Pattern Neutrophil Cytoplasmic Antibodies (C-ANCA = granular cytoplasmic staining, P-ANCA = perinuclear staining) are found in the serum of over 90 percent of patients with certain necrotizing systemic vasculitides, and usually in less than 5 percent of patients with collagen vascular disease or arthritis. Performed By: [facility] [address] [place] [address] Needle Punch Operator: Rosalee Upton MD, PhD CLIA Number: [id number] SSA-52 (Ro52) (YOCASTA) Antibody, IgG 06/13/2024 2 0 - 40 AU/mL Final INTERPRETIVE INFORMATION: SSA-52 (Ro52) (YOCASTA) Antibody, IgG 29 AU/mL or Less ............. Negative 30 - 40 AU/mL ................ Equivocal 41 AU/mL or Greater .......... Positive SSA-52 (Ro52) and/or SSA-60 (Ro60) antibodies are associated with a diagnosis of Sjogren syndrome, systemic lupus erythematosus (SLE), and systemic sclerosis. SSA-52 antibody overlaps significantly with the major SSc-related antibodies. SSA-52 (Ro52) antibody occurs frequently in patients with inflammatory myopathies, often in the presence of interstitial lung disease. SSA-60 (Ro60) (YOCASTA) Antibody, IgG 06/13/2024 0 0 - 40 AU/mL Final REFERENCE INTERVAL: SSA-60 (Ro60) (YOCASTA) Antibody, IgG 29 AU/mL or Less ............. Negative 30 - 40 AU/mL ................ Equivocal 41 AU/mL or Greater .......... Positive Shannon/CUFF TURNER MACHINE OPERATOR (YOCASTA) Ab, IgG 06/13/2024 2 0 - 19 Units Final INTERPRETIVE INFORMATION: Shannon/CUFF TURNER MACHINE OPERATOR (YOCASTA) Antibody, IgG 19 Units or Less ............. Negative 20 to 39 Units ............... Weak Positive 40 to 80 Units ............... Moderate Positive 81 Units or greater .......... Strong Positive Shannon/CUFF TURNER MACHINE OPERATOR antibodies are frequently seen in patients with mixed connective tissue disease (MCTD) and are also associated with other systemic autoimmune rheumatic diseases (SARDs) such as systemic lupus erythematosus (SLE), systemic sclerosis, and myositis. Antibodies targeting the Shannon/CUFF TURNER MACHINE OPERATOR antigenic complex also recognize Shannon antigens, therefore, the Shannon antibody response must be considered when interpreting these results. Neelima-1 (Histidyl-tRNA Synthetase) Ab* 06/13/2024 1 0 - 40 AU/mL Final INTERPRETIVE INFORMATION: Neelima-1 Antibody, IgG 29 AU/mL or less.........Negative 30-40 AU/mL..............Equivocal 41 AU/mL or greater......Positive Presence of Neelima-1 (antihistidyl transfer RNA [t-RNA] synthetase) antibody is associated with polymyositis and may also be seen in patients with dermatomyositis. Neelima-1 antibody is associated with pulmonary involvement (interstitial lung disease), Raynaud phenomenon, arthritis, and motorboat mechanic helper's hands (implicated in antisynthetase syndrome). PL-12 (alanyl-tRNA synthetase) Ant* 06/13/[address]-7 (threonyl-tRNA synthetase) An* 06/13/2024 Negative Negative Final EJ (glycyl-tRNA synthetase) Antibo* 06/13/2024 Negative Negative Final OJ (isoleucyl-tRNA synthetase) Ant* 06/13/2024 Negative Negative Final SRP (Signal Recognition Particle) * 06/13/2024 Negative Negative Final Ku Antibody 06/13/2024 Negative Negative Final PM/Scl 100 Antibody, IgG 06/13/2024 Negative Negative Final INTERPRETIVE INFORMATION: PM/Scl-100 Antibody, IgG by Immunoblot The presence of PM/Scl-100 IgG antibody along with a positive WERO IFA nucleolar pattern is associated with connective tissue diseases such as polymyositis (PM), dermatomyositis (DM), systemic sclerosis (SSc), and polymyositis/systemic sclerosis overlap syndrome. The clinical relevance of PM/Scl-100 IgG antibody with a negative WERO IFA nucleolar pattern is unknown. PM/Scl-100 is the main target epitope of the PM/Scl complex, although antibodies to other targets not detected by this assay may occur. This test was developed and its performance characteristics determined by [facility]. It has not been cleared or approved by the US Food and Drug Administration. This test was performed in a CLIA certified laboratory and is intended for clinical purposes. Fibrillarin (U3 CUFF TURNER MACHINE OPERATOR) Ab, IgG 06/13/2024 Negative Negative Final Comment: Interpretive Information: Fibrillarin (U3 CUFF TURNER MACHINE OPERATOR) Antibody, IgG The presence of fibrillarin (U3-CUFF TURNER MACHINE OPERATOR) IgG antibodies in association with an WERO IFA nucleolar pattern is suggestive of systemic sclerosis (SSc). In SSc, these antibodies are associated with distinct clinical features, such as younger age at disease onset, frequent internal organ involvement (pulmonary hypertension, myositis and renal disease). Fibrillarin antibodies are detected more frequently in patients with SSc compared to other ethnic groups. Strong correlation with WERO IFA results is recommended. In a multi-ethnic cohort of SSc patients (n=98), U3-CUFF TURNER MACHINE OPERATOR antibodies detected by immunoblot had an agreement of 98.9 percent with the gold standard immunoprecipitation (IP) assay. Approximately 71 percent (5/7) of the borderline U3-CUFF TURNER MACHINE OPERATOR results with WERO nucleolar pattern in this cohort were IP negative. This test was developed and its performance characteristics determined by [facility]. It has not been cleared or approved by the US Food and Drug Administration. This test was performed in a CLIA certified laboratory and is intended for clinical purposes. Performed By: [facility] [address] [place] [id number] Needle Punch Operator: Rosalee Upton MD, PhD CLIA Number: [id number] Mi-2 (nuclear helicase protein) An* 06/13/2024 Negative Negative Final P155/140 Antibody 06/13/2024 Negative Negative Final TIF-1 gamma (155 kDa) Ab 06/13/2024 Negative Negative Final SAE1 (SUMO activating enzyme) Ab 06/13/2024 Negative Negative Final MDA5 (CADM-140) Ab 06/13/2024 Negative Negative Final NXP2 (Nuclear matrix protein-2) Ab 06/13/2024 Negative Negative Final Myositis Panel Interpretive Data 06/13/2024 See Note Final Comment: INTERPRETIVE INFORMATION: Extended Myositis Panel If present, myositis-specific antibodies (MSA) are specific for myositis, and may be useful in establishing diagnosis as well as prognosis. MSAs are generally regarded as mutually exclusive with rare exceptions; the occurrence of two or more MSAs should be carefully evaluated in the context of patient's clinical presentation. Myositis-associated antibodies (MAA) may be found in patients with CTD including overlap syndromes, and are generally not specific for myositis. The following table will help in identifying the association of any antibodies found as either MSAs or Willa. Antibody Specificity . . . . . . . . . . . . MSA . . . . MAA SSA 52 (Ro) (YOCASTA) Antibody IgG . . . . . . . . . . . . . X SSA 60 (Ro) (YOCASTA) Antibody IgG . . . . . . . . . . . . . X Shannon/CUFF TURNER MACHINE OPERATOR (YOCASTA) Ab, IgG . . . . . . . . . . . . . . . . X Neelima-1 (histidyl-tRNA synthetase) Ab, IgG . . X PL-12 (alanyl-tRNA synthetase) Antibody . . X PL-7 (threonyl-tRNA synthetase) Antibody . . X EJ (glycyl-tRNA synthetase) Antibody . . . . X OJ (isoleucyl-tRNA synthetase) Antibody . . X SRP (Signal Recognition Particle) Ab . . . . X Ku Antibody . . . . . . . . . . . . . . . . . . . . . . X PM/SCL 100 Antibody, IgG . . . . . . . . . . . . . . . . X Fibrillarin (U3 CUFF TURNER MACHINE OPERATOR) Ab, IgG . . . . . . . . . . . . . . X Mi-2 (nuclear helicase protein) Antibody . . X P155/140 Antibody . . . . . . . . . . . . . X TIF-1 gamma (155 kDa) Ab . . . . . . . . . . X SAE1 (SUMO activating enzyme) Ab . . . . . . X MDA5 (CADM-140) Ab . . . . . . . . . . . . X NXP2 (Nuclear matrix proten-2)Ab . . . . . . X This test was developed and its performance characteristics determined by [facility]. It has not been cleared or approved by the US Food and Drug Administration. This test was performed in a CLIA certified laboratory and is intended for clinical purposes. Aspergillus fumigatus #1 Ab, Preci* 06/13/2024 None Detected None Detected Final Aspergillus fumigatus #6 Ab, Preci* 06/13/2024 None Detected None Detected Final Aureobasidium pullulans Ab, Precip* 06/13/2024 None Detected None Detected Final [place] Serum Ab, Precipitin 06/13/2024 None Detected None Detected Final Micropolyspora Faeni Ab, Precipitin 06/13/2024 None Detected None Detected Final Testing includes antibodies directed at Aureobasidium pullulans, Aspergillus fumigatus #1, Aspergillus fumigatus #6, Micropolyspora faeni, and [place] Serum. Performed By: [facility] [address] [place] [address] Needle Punch Operator: Rosalee Upton MD, PhD CLIA Number: [id number] Anti-SSA 06/13/2024 <0.2 <1.0 AI Final < 1.0 = NEGATIVE >=1.0 = POSITIVE Anti-SSB 06/13/2024 <0.2 <1.0 AI Final < 1.0 = NEGATIVE >=1.0 = POSITIVE Lab on 05/02/2024 Component Date Value Ref Range Status Glucose 05/02/2024 117 (H) 74 - 99 mg/dL Final Sodium 05/02/2024 139 136 - 145 mmol/L Final Potassium 05/02/2024 4.4 3.5 - 5.3 mmol/L Final Chloride 05/02/2024 105 98 - 107 mmol/L Final Bicarbonate 05/02/2024 24 21 - 32 mmol/L Final Anion Gap 05/02/2024 14 10 - 20 mmol/L Final Urea Nitrogen 05/02/2024 20 6 - 23 mg/dL Final Creatinine 05/02/2024 1.13 (H) 0.50 - 1.05 mg/dL Final eGFR 05/02/2024 50 (L) >60 mL/min/1.73m*2 Final Calculations of estimated GFR are performed using the 2020 CKD-EPI Study Refit equation without therace variable for the IDMS-Traceable creatinine methods. https://jasn.asnjournals.org/content/early/ASN.1282218514 Calcium 05/02/2024 8.8 8.6 - 10.6 mg/dL Final Phosphorus 05/02/2024 4.2 2.5 - 4.9 mg/dL Final The performance characteristics of phosphorus testing in heparinized plasma have been validated by the individual laboratory site where testing is performed. Testing on heparinized plasma is not approved by the FDA; however, such approval is not necessary. Albumin 05/02/2024 3.8 3.4 - 5.0 g/dL Final Lab on 04/19/2024 Component Date Value Ref Range Status Glucose 04/19/2024 91 74 - 99 mg/dL Final Sodium 04/19/2024 137 136 - 145 mmol/L Final Potassium 04/19/2024 4.9 3.5 - 5.3 mmol/L Final Chloride 04/19/2024 104 98 - 107 mmol/L Final Bicarbonate 04/19/2024 22 21 - 32 mmol/L Final Anion Gap 04/19/2024 16 10 - 20 mmol/L Final Urea Nitrogen 04/19/2024 14 6 - 23 mg/dL Final Creatinine 04/19/2024 1.08 (H) 0.50 - 1.05 mg/dL Final eGFR 04/19/2024 53 (L) >60 mL/min/1.73m*2 Final Calculations of estimated GFR are performed using the 2020 CKD-EPI Study Refit equation without therace variable for the IDMS-Traceable creatinine methods. https://jasn.asnjournals.org/content/early//ASN.9172051093 Calcium 04/19/2024 8.7 8.6 - 10.6 mg/dL Final Albumin 04/19/2024 3.9 3.4 - 5.0 g/dL Final Alkaline Phosphatase 04/19/2024 53 33 - 136 U/L Final Total Protein 04/19/2024 6.2 (L) 6.4 - 8.2 g/dL Final AST 04/19/2024 33 9 - 39 U/L Final Bilirubin, Total 04/19/2024 0.4 0.0 - 1.2 mg/dL Final ALT 04/19/2024 48 (H) 7 - 45 U/L Final Patients treated with Sulfasalazine may generate falsely decreased results for ALT. WBC 04/19/2024 7.0 4.4 - 11.3 x10*3/uL Final nRBC 04/19/2024 0.0 0.0 - 0.0 /100 WBCs Final RBC 04/19/2024 3.12 (L) 4.00 - 5.20 x10*6/uL Final Hemoglobin 04/19/2024 9.4 (L) 12.0 - 16.0 g/dL Final Hematocrit 04/19/2024 31.6 (L) 36.0 - 46.0 % Final MCV 04/19/2024 101 (H) 80 - 100 fL Final MCH 04/19/2024 30.1 26.0 - 34.0 pg Final MCHC 04/19/2024 29.7 (L) 32.0 - 36.0 g/dL Final RDW 04/19/2024 13.6 11.5 - 14.5 % Final Platelets 04/19/2024 241 150 - 450 x10*3/uL Final Lab on 03/31/2024 Component Date Value Ref Range Status Glucose 03/31/2024 148 (H) 74 - 99 mg/dL Final Sodium 03/31/2024 137 136 - 145 mmol/L Final Potassium 03/31/2024 4.8 3.5 - 5.3 mmol/L Final Chloride 03/31/2024 106 98 - 107 mmol/L Final Bicarbonate 03/31/2024 20 (L) 21 - 32 mmol/L Final Anion Gap 03/31/2024 16 10 - 20 mmol/L Final Urea Nitrogen 03/31/2024 20 6 - 23 mg/dL Final Creatinine 03/31/2024 1.37 (H) 0.50 - 1.05 mg/dL Final eGFR 03/31/2024 40 (L) >60 mL/min/1.73m*2 Final Calculations of estimated GFR are performed using the 2020 CKD-EPI Study Refit equation without therace variable for the IDMS-Traceable creatinine methods. https://jasn.asnjournals.org/content/early//ASN.8593623833 Calcium 03/31/2024 9.0 8.6 - 10.6 mg/dL Final Albumin 03/31/2024 3.6 3.4 - 5.0 g/dL Final Alkaline Phosphatase 03/31/2024 44 33 - 136 U/L Final Total Protein 03/31/2024 5.6 (L) 6.4 - 8.2 g/dL Final AST 03/31/2024 21 9 - 39 U/L Final Bilirubin, Total 03/31/2024 0.3 0.0 - 1.2 mg/dL Final ALT 03/31/2024 26 7 - 45 U/L Final Patients treated with Sulfasalazine may generate falsely decreased results for ALT. Lab on 03/10/2024 Component Date Value Ref Range Status Glucose 03/10/2024 90 74 - 99 mg/dL Final Sodium 03/10/2024 139 136 - 145 mmol/L Final Potassium 03/10/2024 4.5 3.5 - 5.3 mmol/L Final Chloride 03/10/2024 102 98 - 107 mmol/L Final Bicarbonate 03/10/2024 23 21 - 32 mmol/L Final Anion Gap 03/10/2024 19 10 - 20 mmol/L Final Urea Nitrogen 03/10/2024 28 (H) 6 - 23 mg/dL Final Creatinine 03/10/2024 1.27 (H) 0.50 - 1.05 mg/dL Final eGFR 03/10/2024 43 (L) >60 mL/min/1.73m*2 Final Calculations of estimated GFR are performed using the 2020 CKD-EPI Study Refit equation without therace variable for the IDMS-Traceable creatinine methods. https://jasn.asnjournals.org/content/early//ASN.9315451049 Calcium 03/10/2024 9.3 8.6 - 10.6 mg/dL Final Albumin 03/10/2024 3.9 3.4 - 5.0 g/dL Final Alkaline Phosphatase 03/10/2024 68 33 - 136 U/L Final Total Protein 03/10/2024 6.0 (L) 6.4 - 8.2 g/dL Final AST 03/10/2024 35 9 - 39 U/L Final Bilirubin, Total 03/10/2024 0.4 0.0 - 1.2 mg/dL Final ALT 03/10/2024 198 (H) 7 - 45 U/L Final Patients treated with Sulfasalazine may generate falsely decreased results for ALT. Lab on 03/07/2024 Component Date Value Ref Range Status Glucose 03/07/2024 135 (H) 74 - 99 mg/dL Final Sodium 03/07/2024 136 136 - 145 mmol/L Final Potassium 03/07/2024 4.8 3.5 - 5.3 mmol/L Final Chloride 03/07/2024 102 98 - 107 mmol/L Final Bicarbonate 03/07/2024 24 21 - 32 mmol/L Final Anion Gap 03/07/2024 15 10 - 20 mmol/L Final Urea Nitrogen 03/07/2024 28 (H) 6 - 23 mg/dL Final Creatinine 03/07/2024 1.24 (H) 0.50 - 1.05 mg/dL Final eGFR 03/07/2024 45 (L) >60 mL/min/1.73m*2 Final Calculations of estimated GFR are performed using the 2020 CKD-EPI Study Refit equation without therace variable for the IDMS-Traceable creatinine methods. https://jasn.asnjournals.org/content/early//ASN.7736458350 Calcium 03/07/2024 9.3 8.6 - 10.6 mg/dL Final Albumin 03/07/2024 3.6 3.4 - 5.0 g/dL Final Alkaline Phosphatase 03/07/2024 74 33 - 136 U/L Final Total Protein 03/07/2024 5.7 (L) 6.4 - 8.2 g/dL Final AST 03/07/2024 28 9 - 39 U/L Final Bilirubin, Total 03/07/2024 0.5 0.0 - 1.2 mg/dL Final ALT 03/07/2024 389 (H) 7 - 45 U/L Final Patients treated with Sulfasalazine may generate falsely decreased results for ALT. Albumin, Urine Random 03/07/2024 692.9 Not established mg/L Final Creatinine, Urine Random 03/07/2024 49.1 20.0 - 320.0 mg/dL Final Albumin/Creatinine Ratio 03/07/2024 1,411.2 (H) <30.0 ug/mg Creat Final Total Protein 03/07/2024 5.7 (L) 6.4 - 8.2 g/dL Final Albumin 03/07/2024 3.4 3.4 - 5.0 g/dL Final Alpha 1 Globulin 03/07/2024 0.3 0.2 - 0.6 g/dL Final Alpha 2 Globulin 03/07/2024 0.8 0.4 - 1.1 g/dL Final Beta Globulin 03/07/2024 0.6 0.5 - 1.2 g/dL Final Gamma 03/07/2024 0.6 0.5 - 1.4 g/dL Final Protein Electrophoresis Comment 03/07/2024 Normal. Final Immunofixation Comment 03/07/2024 No monoclonal protein detected by immunofixation. Final Path Review - Serum Protein Electr* 03/07/2024 Reviewed and approved by AGUSTIN STERLING on 03/09/24 at 8:24 PM. Final Path Review - Serum Immunofixation 03/07/2024 Reviewed and approved by AGUSTIN STERLING on 03/09/24 at8:24 PM. Final Total Protein, Urine Random 03/07/2024 99 (H) 5 - 25 mg/dL Final Albumin % 03/07/2024 84.5 % Final Alpha 1 Globulin % 03/07/2024 1.9 % Final Alpha 2 Globulin % 03/07/2024 3.6 % Final Beta Globulin % 03/07/2024 5.6 % Final Gamma Globulin % 03/07/2024 4.4 % Final Urine Electrophoresis Comment 03/07/2024 Marked proteinuria. No monoclonal protein detected. Final Path Review-Urine Protein Electrop* 03/07/2024 Reviewed and approved by AGUSTIN STERLING on 03/09/24 at 7:44 PM. Final Phosphorus 03/07/2024 4.1 2.5 - 4.9 mg/dL Final The performance characteristics of phosphorus testing in heparinized plasma have been validated by the individual laboratory site where testing is performed. Testing on heparinized plasma is not approved by the FDA; however, such approval is not necessary. Lab on 02/01/2024 Component Date Value Ref Range Status BNP 02/01/2024 700 (H) 0 - 99 pg/mL Final Glucose 02/01/2024 112 (H) 74 - 99 mg/dL Final Sodium 02/01/2024 138 136 - 145 mmol/L Final Potassium 02/01/2024 4.9 3.5 - 5.3 mmol/L Final Chloride 02/01/2024 100 98 - 107 mmol/L Final Bicarbonate 02/01/2024 21 21 - 32 mmol/L Final Anion Gap 02/01/2024 22 (H) 10 - 20 mmol/L Final Urea Nitrogen 02/01/2024 15 6 - 23 mg/dL Final Creatinine 02/01/2024 0.95 0.50 - 1.05 mg/dL Final eGFR 02/01/2024 61 >60 mL/min/1.73m*2 Final Calculations of estimated GFR are performed using the 2020 CKD-EPI Study Refit equation without therace variable for the IDMS-Traceable creatinine methods. https://jasn.asnjournals.org/content/early//ASN.9647853422 Calcium 02/01/2024 9.4 8.6 - 10.6 mg/dL Final Albumin 02/01/2024 3.6 3.4 - 5.0 g/dL Final Alkaline Phosphatase 02/01/2024 47 33 - 136 U/L Final Total Protein 02/01/2024 5.8 (L) 6.4 - 8.2 g/dL Final AST 02/01/2024 13 9 - 39 U/L Final Bilirubin, Total 02/01/2024 0.7 0.0 - 1.2 mg/dL Final ALT 02/01/2024 24 7 - 45 U/L Final Patients treated with Sulfasalazine may generate falsely decreased results for ALT. Lab on 01/27/2024 Component Date Value Ref Range Status Glucose 01/27/2024 179 (H) 74 - 99 mg/dL Final Sodium 01/27/2024 133 (L) 136 - 145 mmol/L Final Potassium 01/27/2024 4.8 3.5 - 5.3 mmol/L Final Chloride 01/27/2024 98 98 - 107 mmol/L Final Bicarbonate 01/27/2024 23 21 - 32 mmol/L Final Anion Gap 01/27/2024 17 10 - 20 mmol/L Final Urea Nitrogen 01/27/2024 19 6 - 23 mg/dL Final Creatinine 01/27/2024 0.89 0.50 - 1.05 mg/dL Final eGFR 01/27/2024 66 >60 mL/min/1.73m*2 Final Calculations of estimated GFR are performed using the 2020 CKD-EPI Study Refit equation without therace variable for the IDMS-Traceable creatinine methods. https://jasn.asnjournals.org/content/early//ASN.3802556404 Calcium 01/27/2024 9.0 8.6 - 10.6 mg/dL Final Phosphorus 01/27/2024 4.2 2.5 - 4.9 mg/dL Final The performance characteristics of phosphorus testing in heparinized plasma have been validated by the individual laboratory site where testing is performed. Testing on heparinized plasma is not approved by the FDA; however, such approval is not necessary. Albumin 01/27/2024 3.6 3.4 - 5.0 g/dL Final Total Protein, Urine Random 01/27/2024 299 (H) 5 - 24 mg/dL Final Creatinine, Urine Random 01/27/2024 80.9 20.0 - 320.0 mg/dL Final T. Protein/Creatinine Ratio 01/27/2024 3.70 (H) 0.00 - 0.17 mg/mg Creat Final WBC 01/27/2024 12.8 (H) 4.4 - 11.3 x10*3/uL Final nRBC 01/27/2024 0.0 0.0 - 0.0 /100 WBCs Final RBC 01/27/2024 3.33 (L) 4.00 - 5.20 x10*6/uL Final Hemoglobin 01/27/2024 10.3 (L) 12.0 - 16.0 g/dL Final Hematocrit 01/27/2024 32.9 (L) 36.0 - 46.0 % Final MCV 01/27/2024 99 80 - 100 fL Final MCH 01/27/2024 30.9 26.0 - 34.0 pg Final MCHC 01/27/2024 31.3 (L) 32.0 - 36.0 g/dL Final RDW 01/27/2024 14.8 (H) 11.5 - 14.5 % Final Platelets 01/27/2024 334 150 - 450 x10*3/uL Final Neutrophils % 01/27/2024 86.3 40.0 - 80.0 % Final Immature Granulocytes %, Automated 01/27/2024 1.3 (H) 0.0 - 0.9 % Final Immature Granulocyte Count (IG) includes promyelocytes, myelocytes and metamyelocytes but does not include bands. Percent differential counts (%) should be interpreted in the context of the absolute cell counts (cells/UL). Lymphocytes % 01/27/2024 4.0 13.0 - 44.0 % Final Monocytes % 01/27/2024 7.6 2.0 - 10.0 % Final Eosinophils % 01/27/2024 0.4 0.0 - 6.0 % Final Basophils % 01/27/2024 0.4 0.0 - 2.0 % Final Neutrophils Absolute 01/27/2024 11.07 (H) 1.60 - 5.50 x10*3/uL Final Percent differential counts (%) should be interpreted in the context of the absolute cell counts (cells/uL). Immature Granulocytes Absolute, Au* 01/27/2024 0.17 0.00 - 0.50 x10*3/uL Final Lymphocytes Absolute 01/27/2024 0.51 (L) 0.80 - 3.00 x10*3/uL Final Monocytes Absolute 01/27/2024 0.98 (H) 0.05 - 0.80 x10*3/uL Final Eosinophils Absolute 01/27/2024 0.05 0.00 - 0.40 x10*3/uL Final Basophils Absolute 01/27/2024 0.05 0.00 - 0.10 x10*3/uL Final Lab on 01/08/2024 Component Date Value Ref Range Status Hemoglobin A1C 01/08/2024 7.7 (H) see below % Final Estimated Average Glucose 01/08/2024 174 Not Established mg/dL Final There may be more visits with results that are not included. Current Outpatient Medications on File Prior to Visit Medication Sig Dispense Refill albuterol 90 mcg/actuation inhaler Inhale 2 puffs every 4 hours if needed. amLODIPine (Norvasc) 2.5 mg tablet Take 1 tablet (2.5 mg) by mouth early in the morning.. apixaban (Eliquis) 5 mg tablet Take 1 tablet (5 mg) by mouth twice a day. atovaquone (Mepron) 750 mg/5 mL suspension Take 10 mL (1,500 mg) by mouth once daily. blood sugar diagnostic (Contour Next Test Strips) strip 1 each 2 times a day. 200 strip 1 carvedilol (Coreg) 25 mg tablet Take 0.5 tablets (12.5 mg) by mouth 2 times daily (morning and lateafternoon). cholecalciferol (Vitamin D-3) 50 MCG (2000 UT) tablet Take 2 tablets (4,000 Units) by mouth once daily. clindamycin (Cleocin T) 1 % lotion twice a day. Apply sparingly and massage in cyanocobalamin (Vitamin B-12) 1,000 mcg tablet Take 1 tablet (1,000 mcg) by mouth once daily. ezetimibe (Zetia) 10 mg tablet Take 1 tablet (10 mg) by mouth once daily. finerenone (Kerendia) 10 mg tablet tablet Take 1 tablet (10 mg) by mouth once daily. 90 tablet 3 fluocinonide (Lidex) 0.05 % external solution 1 (one) time each day. Apply to affected areas furosemide (Lasix) 20 mg tablet Take 1 tablet (20 mg) by mouth once daily. guaiFENesin (Mucinex) 600 mg 12 hr tablet Take 2 tablets (1,200 mg) by mouth 2 times a day. Do not crush, chew, or split. icosapent ethyL (Vascepa) 1 gram capsule Take 2 capsules (2 g) by mouth twice a day. lansoprazole (Prevacid) [address] capsule TAKE 1 CAPSULE BY MOUTH ONCE DAILY. 90 capsule 3 linagliptin-metformin (Jentadueto XR) 2.5-1,000 mg tablet, IR - ER, biphasic 24hr Take 2 tablets bymouth once daily. 180 tablet 3 losartan (Cozaar) 100 mg tablet TAKE 1 TABLET BY MOUTH ONCE DAILY. 90 tablet 3 multivit,calc,mins/iron/folic (ONE-A-DAY WOMENS FORMULA ORAL) Take 1 tablet by mouth once daily. predniSONE (Deltasone) 20 mg tablet Take 3 tablets (60 mg) by mouth once daily. Take 3 tablets (60 mg) by mouth daily. Take 3 tablets (60 mg) daily x 14 days, then 2.5 tablets (50 mg) daily x 14 days, then 2 tablets (40 mg) daily until follow-up rosuvastatin (Crestor) 10 mg tablet TAKE 1 TABLET BY MOUTH ONCE DAILY. 90 tablet 3 sertraline (Zoloft) 25 mg tablet Take 1 tablet (25 mg) by mouth once daily. tiotropium (Spiriva Respimat) 2.5 mcg/actuation inhaler Inhale 2 puffs once daily. 12 g 3 No current facility-administered medications on file prior to visit. No images are attached to the encounter. Assessment/Plan Diagnoses and all orders for this visit: Acute bronchitis, unspecified organism - XR chest 2 views; Future - doxycycline (Vibramycin) 100 mg capsule; Take 1 capsule (100 mg) by mouth 2 times a day for 10 days. Take with at least 8 ounces (large glass) of water, do not lie down for 30 minutes after Patient to start on antibiotics Patient to call if questions or concerns [facility]: History of Present illness Narrative* Celia Christi Al, DO - 02/07/2025 3:40 PM EDT Subjective Patient ID: Rolando Peters is a 80 y.o. female who presents for Follow-up (Right foot great toe redness. ). HPI Patient was recently seen for abrasion on her toe was given antibiotics and antibiotic cream. Has been using this does not feel like this has improved. Review of Systems Constitutional: Negative for activity change, appetite change, fatigue and fever. HENT: Negative for congestion. Respiratory: Negative for cough, choking and chest tightness. Cardiovascular: Negative for chest pain, palpitations and leg swelling. Musculoskeletal: Negative for arthralgias, back pain and gait problem. Skin: Positive for wound. Negative for color change and pallor. Right great toe cut Neurological: Negative for dizziness, facial asymmetry, light-headedness and headaches. Objective BP 120/52 (BP Location: Left arm, Patient Position: Sitting) Pulse 94 Temp 36.7 C (98 F) Wt 60.8 kg (134 lb) BMI 20.99 kg/m BSA Body surface area is 1.7 meters squared. Physical Exam Constitutional: General: She is not in acute distress. Appearance: Normal appearance. She is not toxic-appearing. HENT: Head: Normocephalic. Right Ear: Tympanic membrane, ear canal and external ear normal. Left Ear: Tympanic membrane, ear canal and external ear normal. Eyes: Conjunctiva/sclera: Conjunctivae normal. Pupils: Pupils are equal, round, and reactive to light. Cardiovascular: Rate and Rhythm: Normal rate and regular rhythm. Pulses: Normal pulses. Heart sounds: Normal heart sounds. Pulmonary: Effort: No respiratory distress. Breath sounds: No wheezing, rhonchi or rales. Abdominal: General: Bowel sounds are normal. There is no distension. Palpations: Abdomen is soft. Tenderness: There is no abdominal tenderness. Musculoskeletal: General: No swelling or tenderness. Skin: Findings: Lesion present. No rash. Comments: Right great toe cut 1/2 scabbed with surrounding erythema Neurological: General: No focal deficit present. Mental Status: She is alert and oriented to person, place, and time. Mental status is at baseline. Gait: Gait abnormal. Psychiatric: Mood and Affect: Mood normal. Behavior: Behavior normal. Thought Content: Thought content normal. Judgment: Judgment normal. Office Visit on 01/27/2025 Component Date Value Ref Range Status WHITE BLOOD CELL COUNT 01/27/2025 6.3 3.8 - 10.8 Thousand/uL Final RED BLOOD CELL COUNT 01/27/2025 3.09 (L) 3.80 - 5.10 Million/uL Final HEMOGLOBIN 01/27/2025 8.2 (L) 11.7 - 15.5 g/dL Final HEMATOCRIT 01/27/2025 27.5 (L) 35.0 - 45.0 % Final MCV 01/27/2025 89.0 80.0 - 100.0 fL Final MCH 01/27/2025 26.5 (L) 27.0 - 33.0 pg Final MCHC 01/27/2025 29.8 (L) 32.0 - 36.0 g/dL Final Comment: For adults, a slight decrease in the calculated MCHC value (in the range of 30 to 32 g/dL) is most likely not clinically significant; however, it should be interpreted with caution in correlation with other red cell parameters and the patient's clinical condition. RDW 01/27/2025 14.9 11.0 - 15.0 % Final PLATELET COUNT 01/27/2025 270 140 - 400 Thousand/uL Final MPV 01/27/2025 9.2 7.5 - 12.5 fL Final ABSOLUTE NEUTROPHILS 01/27/2025 4,712 1,500 - 7,800 cells/uL Final ABSOLUTE LYMPHOCYTES 01/27/2025 781 (L) 850 - 3,900 cells/uL Final ABSOLUTE MONOCYTES 01/27/2025 561 200 - 950 cells/uL Final ABSOLUTE EOSINOPHILS 01/27/2025 164 15 - 500 cells/uL Final ABSOLUTE BASOPHILS 01/27/2025 82 0 - 200 cells/uL Final NEUTROPHILS 01/27/2025 74.8 % Final LYMPHOCYTES 01/27/2025 12.4 % Final MONOCYTES 01/27/2025 8.9 % Final EOSINOPHILS 01/27/2025 2.6 % Final BASOPHILS 01/27/2025 1.3 % Final IRON, TOTAL 01/27/2025 27 (L) 45 - 160 mcg/dL Final IRON BINDING CAPACITY 01/27/2025 384 250 - 450 mcg/dL (calc) Final % SATURATION 01/27/2025 7 (L) 16 - 45 % (calc) Final FERRITIN 01/27/2025 55 16 - 288 ng/mL Final Orders Only on 01/16/2025 Component Date Value Ref Range Status WHITE BLOOD CELL COUNT 01/16/2025 8.3 3.8 - 10.8 Thousand/uL Final RED BLOOD CELL COUNT 01/16/2025 2.37 (L) 3.80 - 5.10 Million/uL Final HEMOGLOBIN 01/16/2025 6.1 (L) 11.7 - 15.5 g/dL Final Comment: Verified by repeat analysis. HEMATOCRIT 01/16/2025 20.5 (L) 35.0 - 45.0 % Final MCV 01/16/2025 86.5 80.0 - 100.0 fL Final MCH 01/16/2025 25.7 (L) 27.0 - 33.0 pg Final MCHC 01/16/2025 29.8 (L) 32.0 - 36.0 g/dL Final Comment: For adults, a slight decrease in the calculated MCHC value (in the range of 30 to 32 g/dL) is most likely not clinically significant; however, it should be interpreted with caution in correlation with other red cell parameters and the patient's clinical condition. RDW 01/16/2025 14.9 11.0 - 15.0 % Final PLATELET COUNT 01/16/2025 337 140 - 400 Thousand/uL Final MPV 01/16/2025 9.3 7.5 - 12.5 fL Final ABSOLUTE NEUTROPHILS 01/16/2025 6,557 1,500 - 7,800 cells/uL Final ABSOLUTE LYMPHOCYTES 01/16/2025 813 (L) 850 - 3,900 cells/uL Final ABSOLUTE MONOCYTES 01/16/2025 730 200 - 950 cells/uL Final ABSOLUTE EOSINOPHILS 01/16/2025 133 15 - 500 cells/uL Final ABSOLUTE BASOPHILS 01/16/2025 66 0 - 200 cells/uL Final NEUTROPHILS 01/16/2025 79 % Final LYMPHOCYTES 01/16/2025 9.8 % Final MONOCYTES 01/16/2025 8.8 % Final EOSINOPHILS 01/16/2025 1.6 % Final BASOPHILS 01/16/2025 0.8 % Final COMMENT(S) 01/16/2025 Final Ovalocytes 2 + Orders Only on 12/12/2024 Component Date Value Ref Range Status WHITE BLOOD CELL COUNT 12/15/2024 9.9 3.8 - 10.8 Thousand/uL Final RED BLOOD CELL COUNT 12/15/2024 3.04 (L) 3.80 - 5.10 Million/uL Final HEMOGLOBIN 12/15/2024 8.3 (L) 11.7 - 15.5 g/dL Final HEMATOCRIT 12/15/2024 27.4 (L) 35.0 - 45.0 % Final MCV 12/15/2024 90.1 80.0 - 100.0 fL Final MCH 12/15/2024 27.3 27.0 - 33.0 pg Final MCHC 12/15/2024 30.3 (L) 32.0 - 36.0 g/dL Final Comment: For adults, a slight decrease in the calculated MCHC value (in the range of 30 to 32 g/dL) is most likely not clinically significant; however, it should be interpreted with caution in correlation with other red cell parameters and the patient's clinical condition. RDW 12/15/2024 15.1 (H) 11.0 - 15.0 % Final PLATELET COUNT 12/15/2024 264 140 - 400 Thousand/uL Final MPV 12/15/2024 9.1 7.5 - 12.5 fL Final ABSOLUTE NEUTROPHILS 12/15/2024 7,504 1,500 - 7,800 cells/uL Final ABSOLUTE LYMPHOCYTES 12/15/2024 1,406 850 - 3,900 cells/uL Final ABSOLUTE MONOCYTES 12/15/2024 861 200 - 950 cells/uL Final ABSOLUTE EOSINOPHILS 12/15/2024 89 15 - 500 cells/uL Final ABSOLUTE BASOPHILS 12/15/2024 40 0 - 200 cells/uL Final NEUTROPHILS 12/15/2024 75.8 % Final LYMPHOCYTES 12/15/2024 14.2 % Final MONOCYTES 12/15/2024 8.7 % Final EOSINOPHILS 12/15/2024 0.9 % Final BASOPHILS 12/15/2024 0.4 % Final Office Visit on 11/18/2024 Component Date Value Ref Range Status POC Glucose, Urine 11/18/2024 NEGATIVE NEGATIVE mg/dl Final Neg POC Bilirubin, Urine 11/18/2024 NEGATIVE NEGATIVE Final POC Ketones, Urine 11/18/2024 NEGATIVE NEGATIVE mg/dl Final POC Specific [place], Urine 11/18/2024 1.010 1.005 - 1.035 Final POC Blood, Urine 11/18/2024 NEGATIVE NEGATIVE Final POC PH, Urine 11/18/2024 5.5 No Reference Range Established PH Final POC Protein, Urine 11/18/2024 30 (1+) (A) NEGATIVE mg/dl Final POC Urobilinogen, Urine 11/18/2024 0.2 0.2, 1.0 EU/DL Final Poc Nitrite, Urine 11/18/2024 NEGATIVE NEGATIVE Final POC Leukocytes, Urine 11/18/2024 NEGATIVE NEGATIVE Final WHITE BLOOD CELL COUNT 11/25/2024 11.5 (H) 3.8 - 10.8 Thousand/uL Final RED BLOOD CELL COUNT 11/25/2024 3.01 (L) 3.80 - 5.10 Million/uL Final HEMOGLOBIN 11/25/2024 8.3 (L) 11.7 - 15.5 g/dL Final HEMATOCRIT 11/25/2024 26.8 (L) 35.0 - 45.0 % Final MCV 11/25/2024 89.0 80.0 - 100.0 fL Final MCH 11/25/2024 27.6 27.0 - 33.0 pg Final MCHC 11/25/2024 31.0 (L) 32.0 - 36.0 g/dL Final Comment: For adults, a slight decrease in the calculated MCHC value (in the range of 30 to 32 g/dL) is most likely not clinically significant; however, it should be interpreted with caution in correlation with other red cell parameters and the patient's clinical condition. RDW 11/25/2024 15.0 11.0 - 15.0 % Final PLATELET COUNT 11/25/2024 324 140 - 400 Thousand/uL Final MPV 11/25/2024 9.9 7.5 - 12.5 fL Final ABSOLUTE NEUTROPHILS 11/25/2024 8,809 (H) 1,500 - 7,800 cells/uL Final ABSOLUTE LYMPHOCYTES 11/25/2024 1,702 850 - 3,900 cells/uL Final ABSOLUTE MONOCYTES 11/25/2024 817 200 - 950 cells/uL Final ABSOLUTE EOSINOPHILS 11/25/2024 127 15 - 500 cells/uL Final ABSOLUTE BASOPHILS 11/25/2024 46 0 - 200 cells/uL Final NEUTROPHILS 11/25/2024 76.6 % Final LYMPHOCYTES 11/25/2024 14.8 % Final MONOCYTES 11/25/2024 7.1 % Final EOSINOPHILS 11/25/2024 1.1 % Final BASOPHILS 11/25/2024 0.4 % Final GLUCOSE 11/25/2024 90 65 - 99 mg/dL Final Comment: Fasting reference interval UREA NITROGEN (BUN) 11/25/2024 30 (H) 7 - 25 mg/dL Final CREATININE 11/25/2024 0.98 0.60 - 1.00 mg/dL Final EGFR 11/25/2024 59 (L) > OR = 60 mL/min/1.73m2 Final SODIUM 11/25/2024 137 135 - 146 mmol/L Final POTASSIUM 11/25/2024 4.0 3.5 - 5.3 mmol/L Final CHLORIDE 11/25/2024 108 98 - 110 mmol/L Final CARBON DIOXIDE 11/25/2024 20 20 - 32 mmol/L Final ELECTROLYTE BALANCE 11/25/2024 9 7 - 17 mmol/L (calc) Final CALCIUM 11/25/2024 8.9 8.6 - 10.4 mg/dL Final PROTEIN, TOTAL 11/25/2024 5.7 (L) 6.1 - 8.1 g/dL Final ALBUMIN 11/25/2024 3.7 3.6 - 5.1 g/dL Final BILIRUBIN, TOTAL 11/25/2024 0.6 0.2 - 1.2 mg/dL Final ALKALINE PHOSPHATASE 11/25/2024 41 37 - 153 U/L Final AST 11/25/2024 12 10 - 35 U/L Final ALT 11/25/2024 13 6 - 29 U/L Final Orders Only on 11/16/2024 Component Date Value Ref Range Status CHOLESTEROL, TOTAL 11/16/2024 129 <200 mg/dL Final HDL CHOLESTEROL 11/16/2024 57 > OR = 50 mg/dL Final TRIGLYCERIDES 11/16/2024 94 <150 mg/dL Final LDL-CHOLESTEROL 11/16/2024 54 mg/dL (calc) Final Comment: Reference range: <100 Desirable range <100 mg/dL for primary prevention; <70 mg/dL for patients with CHD or diabetic patients with > or = 2 CHD risk factors. LDL-C is now calculated using the Jefferson calculation, which is a validated novel method providing better accuracy than the Friedewald equation in the estimation of LDL-C. Balbir OLSON et al. SARAH. 2013;310(19): 5280-4494 (http://education.[employer]/faq/ZUM845) CHOL/HDLC RATIO 11/16/2024 2.3 <5.0 (calc) Final NON HDL CHOLESTEROL 11/16/2024 72 <130 mg/dL (calc) Final Comment: For patients with diabetes plus 1 major ASCVD risk factor, treating to a non-HDL-C goal of <100 mg/dL (LDL-C of <70 mg/dL) is considered a therapeutic option. GLUCOSE 11/16/2024 91 65 - 99 mg/dL Final Comment: Fasting reference interval UREA NITROGEN (BUN) 11/16/2024 23 7 - 25 mg/dL Final CREATININE 11/16/2024 0.93 0.60 - 1.00 mg/dL Final EGFR 11/16/2024 63 > OR = 60 mL/min/1.73m2 Final SODIUM 11/16/2024 139 135 - 146 mmol/L Final POTASSIUM 11/16/2024 4.0 3.5 - 5.3 mmol/L Final CHLORIDE 11/16/2024 106 98 - 110 mmol/L Final CARBON DIOXIDE 11/16/2024 24 20 - 32 mmol/L Final ELECTROLYTE BALANCE 11/16/2024 9 7 - 17 mmol/L (calc) Final CALCIUM 11/16/2024 8.7 8.6 - 10.4 mg/dL Final PROTEIN, TOTAL 11/16/2024 5.4 (L) 6.1 - 8.1 g/dL Final ALBUMIN 11/16/2024 3.6 3.6 - 5.1 g/dL Final BILIRUBIN, TOTAL 11/16/2024 0.6 0.2 - 1.2 mg/dL Final ALKALINE PHOSPHATASE 11/16/2024 43 37 - 153 U/L Final AST 11/16/2024 12 10 - 35 U/L Final ALT 11/16/2024 18 6 - 29 U/L Final WHITE BLOOD CELL COUNT 11/16/2024 12.4 (H) 3.8 - 10.8 Thousand/uL Final RED BLOOD CELL COUNT 11/16/2024 2.68 (L) 3.80 - 5.10 Million/uL Final HEMOGLOBIN 11/16/2024 7.4 (L) 11.7 - 15.5 g/dL Final HEMATOCRIT 11/16/2024 24.1 (L) 35.0 - 45.0 % Final MCV 11/16/2024 89.9 80.0 - 100.0 fL Final MCH 11/16/2024 27.6 27.0 - 33.0 pg Final MCHC 11/16/2024 30.7 (L) 32.0 - 36.0 g/dL Final Comment: For adults, a slight decrease in the calculated MCHC value (in the range of 30 to 32 g/dL) is most likely not clinically significant; however, it should be interpreted with caution in correlation with other red cell parameters and the patient's clinical condition. RDW 11/16/2024 15.1 (H) 11.0 - 15.0 % Final PLATELET COUNT 11/16/2024 280 140 - 400 Thousand/uL Final MPV 11/16/2024 9.5 7.5 - 12.5 fL Final ABSOLUTE NEUTROPHILS 11/16/2024 10,143 (H) 1,500 - 7,800 cells/uL Final ABSOLUTE LYMPHOCYTES 11/16/2024 1,327 850 - 3,900 cells/uL Final ABSOLUTE MONOCYTES 11/16/2024 856 200 - 950 cells/uL Final ABSOLUTE EOSINOPHILS 11/16/2024 50 15 - 500 cells/uL Final ABSOLUTE BASOPHILS 11/16/2024 25 0 - 200 cells/uL Final NEUTROPHILS 11/16/2024 81.8 % Final LYMPHOCYTES 11/16/2024 10.7 % Final MONOCYTES 11/16/2024 6.9 % Final EOSINOPHILS 11/16/2024 0.4 % Final BASOPHILS 11/16/2024 0.2 % Final TSH W/REFLEX TO FT4 11/16/2024 1.13 0.40 - 4.50 mIU/L Final VITAMIN D,25-OH,TOTAL,IA 11/16/2024 27 (L) 30 - 100 ng/mL Final Comment: Vitamin D Status 25-OH Vitamin D: Deficiency: <20 ng/mL Insufficiency: 20 - 29 ng/mL Optimal: > or = 30 ng/mL For 25-OH Vitamin D testing on patients on D2-supplementation and patients for whom quantitation of D2 and D3 fractions is required, the QuestAssureD(TM) 25-OH VIT D, (D2,D3), LC/MS/MS is recommended: order code 23333 (patients >2yrs). See Note 1 Note 1 For additional information, please refer to http://education.[employer]/faq/XFW749 (This link is being provided for informational/ educational purposes only.) HEMOGLOBIN A1c 11/16/2024 6.9 (H) <5.7 % of total Hgb Final Comment: For someone without known diabetes, a hemoglobin A1c value of 6.5% or greater indicates that they may have diabetes and this should be confirmed with a follow-up test. For someone with known diabetes, a value <7% indicates that their diabetes is well controlled and a value greater than or equal to 7% indicates suboptimal control. A1c targets should be individualized based on duration of diabetes, age, comorbid conditions, and other considerations. Currently, no consensus exists regarding use of hemoglobin A1c for diagnosis of diabetes for children. eAG (mg/dL) 11/16/2024 151 mg/dL Final eAG (mmol/L) 11/16/2024 8.4 mmol/L Final Lab Requisition on 11/07/2024 Component Date Value Ref Range Status Troponin I, High Sensitivity 11/07/2024 14 (H) 0 - 13 ng/L Final Lab on 08/02/2024 Component Date Value Ref Range Status Glucose 08/02/2024 103 (H) 74 - 99 mg/dL Final Sodium 08/02/2024 137 136 - 145 mmol/L Final Potassium 08/02/2024 4.9 3.5 - 5.3 mmol/L Final Chloride 08/02/2024 106 98 - 107 mmol/L Final Bicarbonate 08/02/2024 22 21 - 32 mmol/L Final Anion Gap 08/02/2024 14 10 - 20 mmol/L Final Urea Nitrogen 08/02/2024 15 6 - 23 mg/dL Final Creatinine 08/02/2024 1.01 0.50 - 1.05 mg/dL Final eGFR 08/02/2024 57 (L) >60 mL/min/1.73m*2 Final Calculations of estimated GFR are performed using the 2020 CKD-EPI Study Refit equation without therace variable for the IDMS-Traceable creatinine methods. https://jasn.asnjournals.org/content/early/ASN.3799888005 Calcium 08/02/2024 8.9 8.6 - 10.6 mg/dL Final Albumin 08/02/2024 4.0 3.4 - 5.0 g/dL Final Alkaline Phosphatase 08/02/2024 46 33 - 136 U/L Final Total Protein 08/02/2024 6.5 6.4 - 8.2 g/dL Final AST 08/02/2024 26 9 - 39 U/L Final Bilirubin, Total 08/02/2024 0.5 0.0 - 1.2 mg/dL Final ALT 08/02/2024 24 7 - 45 U/L Final Patients treated with Sulfasalazine may generate falsely decreased results for ALT. Thyroid Stimulating Hormone 08/02/2024 1.42 0.44 - 3.98 mIU/L Final Magnesium 08/02/2024 1.99 1.60 - 2.40 mg/dL Final Phosphorus 08/02/2024 4.8 2.5 - 4.9 mg/dL Final The performance characteristics of phosphorus testing in heparinized plasma have been validated by the individual laboratory site where testing is performed. Testing on heparinized plasma is not approved by the FDA; however, such approval is not necessary. Vitamin B12 08/02/2024 207 (L) 211 - 911 pg/mL Final Folate, Serum 08/02/2024 23.5 >5.0 ng/mL Final Methylmalonic Acid, S 08/02/2024 0.25 0.00 - 0.40 umol/L Final INTERPRETIVE INFORMATION: MMA Serum/Plasma, Vitamin B12 Status This test was developed and its performance characteristics determined by [facility]. It has not been cleared or approved by the US Food and Drug Administration. This test was performed in a CLIA certified laboratory and is intended for clinical purposes. Performed By: [facility] [address] [place] [id number] Needle Punch Operator: Rosalee Upton MD, PhD CLIA Number: [id number] Iron 08/02/2024 45 35 - 150 ug/dL Final UIBC 08/02/2024 354 110 - 370 ug/dL Final TIBC 08/02/2024 399 240 - 445 ug/dL Final % Saturation 08/02/2024 11 (L) 25 - 45 % Final Ferritin 08/02/2024 71 8 - 150 ng/mL Final Lab on 06/13/2024 Component Date Value Ref Range Status Albumin, Urine Random 06/13/2024 1,587.3 Not established mg/L Final Creatinine, Urine Random 06/13/2024 67.3 20.0 - 320.0 mg/dL Final Albumin/Creatinine Ratio 06/13/2024 2,358.5 (H) <30.0 ug/mg Creat Final Glucose 06/13/2024 137 (H) 74 - 99 mg/dL Final Sodium 06/13/2024 137 136 - 145 mmol/L Final Potassium 06/13/2024 4.6 3.5 - 5.3 mmol/L Final Chloride 06/13/2024 103 98 - 107 mmol/L Final Bicarbonate 06/13/2024 22 21 - 32 mmol/L Final Anion Gap 06/13/2024 17 10 - 20 mmol/L Final Urea Nitrogen 06/13/2024 16 6 - 23 mg/dL Final Creatinine 06/13/2024 1.03 0.50 - 1.05 mg/dL Final eGFR 06/13/2024 56 (L) >60 mL/min/1.73m*2 Final Calculations of estimated GFR are performed using the 2020 CKD-EPI Study Refit equation without therace variable for the IDMS-Traceable creatinine methods. https://jasn.asnjournals.org/content//ASN.2373790809 Calcium 06/13/2024 8.7 8.6 - 10.6 mg/dL Final Albumin 06/13/2024 4.0 3.4 - 5.0 g/dL Final Alkaline Phosphatase 06/13/2024 49 33 - 136 U/L Final Total Protein 06/13/2024 6.2 (L) 6.4 - 8.2 g/dL Final AST 06/13/2024 23 9 - 39 U/L Final Bilirubin, Total 06/13/2024 0.5 0.0 - 1.2 mg/dL Final ALT 06/13/2024 36 7 - 45 U/L Final Patients treated with Sulfasalazine may generate falsely decreased results for ALT. Hemoglobin A1C 06/13/2024 5.5 See comment % Final Estimated Average Glucose 06/13/2024 111 Not Established mg/dL Final WBC 06/13/2024 5.3 4.4 - 11.3 x10*3/uL Final nRBC 06/13/2024 0.0 0.0 - 0.0 /100 WBCs Final RBC 06/13/2024 3.35 (L) 4.00 - 5.20 x10*6/uL Final Hemoglobin 06/13/2024 9.7 (L) 12.0 - 16.0 g/dL Final Hematocrit 06/13/2024 30.8 (L) 36.0 - 46.0 % Final MCV 06/13/2024 92 80 - 100 fL Final MCH 06/13/2024 29.0 26.0 - 34.0 pg Final MCHC 06/13/2024 31.5 (L) 32.0 - 36.0 g/dL Final RDW 06/13/2024 13.0 11.5 - 14.5 % Final Platelets 06/13/2024 204 150 - 450 x10*3/uL Final Neutrophils % 06/13/2024 74.1 40.0 - 80.0 % Final Immature Granulocytes %, Automated 06/13/2024 0.4 0.0 - 0.9 % Final Immature Granulocyte Count (IG) includes promyelocytes, myelocytes and metamyelocytes but does not include bands. Percent differential counts (%) should be interpreted in the context of the absolute cell counts (cells/UL). Lymphocytes % 06/13/2024 14.1 13.0 - 44.0 % Final Monocytes % 06/13/2024 7.7 2.0 - 10.0 % Final Eosinophils % 06/13/2024 2.4 0.0 - 6.0 % Final Basophils % 06/13/2024 1.3 0.0 - 2.0 % Final Neutrophils Absolute 06/13/2024 3.93 1.60 - 5.50 x10*3/uL Final Percent differential counts (%) should be interpreted in the context of the absolute cell counts (cells/uL). Immature Granulocytes Absolute, Au* 06/13/2024 0.02 0.00 - 0.50 x10*3/uL Final Lymphocytes Absolute 06/13/2024 0.75 (L) 0.80 - 3.00 x10*3/uL Final Monocytes Absolute 06/13/2024 0.41 0.05 - 0.80 x10*3/uL Final Eosinophils Absolute 06/13/2024 0.13 0.00 - 0.40 x10*3/uL Final Basophils Absolute 06/13/2024 0.07 0.00 - 0.10 x10*3/uL Final WERO 06/13/2024 Negative Negative Final The Antinuclear Antibody (WERO) test was performed using indirect immunofluorescence assay with HEp-2 cells slide. Rheumatoid Factor 06/13/2024 <10 0 - 15 IU/mL Final Citrulline Antibody, IgG 06/13/2024 <1 <3 U/mL Final NEGATIVE < 3 U/ML POSITIVE >=3 U/ML ANCA IFA Titer 06/13/2024 <1:20 <1:20 Final ANCA IFA Pattern 06/13/2024 None Detected None Detected Final INTERPRETIVE INFORMATION: ANCA IFA Pattern Neutrophil Cytoplasmic Antibodies (C-ANCA = granular cytoplasmic staining, P-ANCA = perinuclear staining) are found in the serum of over 90 percent of patients with certain necrotizing systemic vasculitides, and usually in less than 5 percent of patients with collagen vascular disease or arthritis. Performed By: [facility] [address] [place] [address] Needle Punch Operator: Rosalee Upton MD, PhD CLIA Number: [id number] SSA-52 (Ro52) (YOCASTA) Antibody, IgG 06/13/2024 2 0 - 40 AU/mL Final INTERPRETIVE INFORMATION: SSA-52 (Ro52) (YOCASTA) Antibody, IgG 29 AU/mL or Less ............. Negative 30 - 40 AU/mL ................ Equivocal 41 AU/mL or Greater .......... Positive SSA-52 (Ro52) and/or SSA-60 (Ro60) antibodies are associated with a diagnosis of Sjogren syndrome, systemic lupus erythematosus (SLE), and systemic sclerosis. SSA-52 antibody overlaps significantly with the major SSc-related antibodies. SSA-52 (Ro52) antibody occurs frequently in patients with inflammatory myopathies, often in the presence of interstitial lung disease. SSA-60 (Ro60) (YOCASTA) Antibody, IgG 06/13/2024 0 0 - 40 AU/mL Final REFERENCE INTERVAL: SSA-60 (Ro60) (YOCASTA) Antibody, IgG 29 AU/mL or Less ............. Negative 30 - 40 AU/mL ................ Equivocal 41 AU/mL or Greater .......... Positive Shannon/CUFF TURNER MACHINE OPERATOR (YOCASTA) Ab, IgG 06/13/2024 2 0 - 19 Units Final INTERPRETIVE INFORMATION: Shannon/CUFF TURNER MACHINE OPERATOR (YOCASAT) Antibody, IgG 19 Units or Less ............. Negative 20 to 39 Units ............... Weak Positive 40 to 80 Units ............... Moderate Positive 81 Units or greater .......... Strong Positive Shannon/CUFF TURNER MACHINE OPERATOR antibodies are frequently seen in patients with mixed connective tissue disease (MCTD) and are also associated with other systemic autoimmune rheumatic diseases (SARDs) such as systemic lupus erythematosus (SLE), systemic sclerosis, and myositis. Antibodies targeting the Shannon/CUFF TURNER MACHINE OPERATOR antigenic complex also recognize Shannon antigens, therefore, the Shannon antibody response must be considered when interpreting these results. Neelima-1 (Histidyl-tRNA Synthetase) Ab* 06/13/2024 1 0 - 40 AU/mL Final INTERPRETIVE INFORMATION: Neelima-1 Antibody, IgG 29 AU/mL or less.........Negative 30-40 AU/mL..............Equivocal 41 AU/mL or greater......Positive Presence of Neelima-1 (antihistidyl transfer RNA [t-RNA] synthetase) antibody is associated with polymyositis and may also be seen in patients with dermatomyositis. Neelima-1 antibody is associated with pulmonary involvement (interstitial lung disease), Raynaud phenomenon, arthritis, and motorboat mechanic helper's hands (implicated in antisynthetase syndrome). PL-12 (alanyl-tRNA synthetase) Ant* 06/13/[address]-7 (threonyl-tRNA synthetase) An* 06/13/2024 Negative Negative Final EJ (glycyl-tRNA synthetase) Antibo* 06/13/2024 Negative Negative Final OJ (isoleucyl-tRNA synthetase) Ant* 06/13/2024 Negative Negative Final SRP (Signal Recognition Particle) * 06/13/2024 Negative Negative Final Ku Antibody 06/13/2024 Negative Negative Final PM/Scl 100 Antibody, IgG 06/13/2024 Negative Negative Final INTERPRETIVE INFORMATION: PM/Scl-100 Antibody, IgG by Immunoblot The presence of PM/Scl-100 IgG antibody along with a positive WREO IFA nucleolar pattern is associated with connective tissue diseases such as polymyositis (PM), dermatomyositis (DM), systemic sclerosis (SSc), and polymyositis/systemic sclerosis overlap syndrome. The clinical relevance of PM/Scl-100 IgG antibody with a negative WERO IFA nucleolar pattern is unknown. PM/Scl-100 is the main target epitope of the PM/Scl complex, although antibodies to other targets not detected by this assay may occur. This test was developed and its performance characteristics determined by [facility]. It has not been cleared or approved by the US Food and Drug Administration. This test was performed in a CLIA certified laboratory and is intended for clinical purposes. Fibrillarin (U3 CUFF TURNER MACHINE OPERATOR) Ab, IgG 06/13/2024 Negative Negative Final Comment: Interpretive Information: Fibrillarin (U3 CUFF TURNER MACHINE OPERATOR) Antibody, IgG The presence of fibrillarin (U3-CUFF TURNER MACHINE OPERATOR) IgG antibodies in association with an WERO IFA nucleolar pattern is suggestive of systemic sclerosis (SSc). In SSc, these antibodies are associated with distinct clinical features, such as younger age at disease onset, frequent internal organ involvement (pulmonary hypertension, myositis and renal disease). Fibrillarin antibodies are detected more frequently in patients with SSc compared to other ethnic groups. Strong correlation with WERO IFA results is recommended. In a multi-ethnic cohort of SSc patients (n=98), U3-CUFF TURNER MACHINE OPERATOR antibodies detected by immunoblot had an agreement of 98.9 percent with the gold standard immunoprecipitation (IP) assay. Approximately 71 percent (5/7) of the borderline U3-CUFF TURNER MACHINE OPERATOR results with WERO nucleolar pattern in this cohort were IP negative. This test was developed and its performance characteristics determined by [facility]. It has not been cleared or approved by the US Food and Drug Administration. This test was performed in a CLIA certified laboratory and is intended for clinical purposes. Performed By: [facility] [address] [place] [address] Needle Punch Operator: Rosalee Upton MD, PhD [facility] Number: [id number] Mi-2 (nuclear helicase protein) An* 06/13/2024 Negative Negative Final P155/140 Antibody 06/13/2024 Negative Negative Final TIF-1 gamma (155 kDa) Ab 06/13/2024 Negative Negative Final SAE1 (SUMO activating enzyme) Ab 06/13/2024 Negative Negative Final MDA5 (CADM-140) Ab 06/13/2024 Negative Negative Final NXP2 (Nuclear matrix protein-2) Ab 06/13/2024 Negative Negative Final Myositis Panel Interpretive Data 06/13/2024 See Note Final Comment: INTERPRETIVE INFORMATION: Extended Myositis Panel If present, myositis-specific antibodies (MSA) are specific for myositis, and may be useful in establishing diagnosis as well as prognosis. MSAs are generally regarded as mutually exclusive with rare exceptions; the occurrence of two or more MSAs should be carefully evaluated in the context of patient's clinical presentation. Myositis-associated antibodies (MAA) may be found in patients with CTD including overlap syndromes, and are generally not specific for myositis. The following table will help in identifying the association of any antibodies found as either MSAs or Willa. Antibody Specificity . . . . . . . . . . . . MSA . . . . MAA SSA 52 (Ro) (YOCASTA) Antibody IgG . . . . . . . . . . . . . X SSA 60 (Ro) (YOCASTA) Antibody IgG . . . . . . . . . . . . . X Shannon/CUFF TURNER MACHINE OPERATOR (YOCASTA) Ab, IgG . . . . . . . . . . . . . . . . X Neelima-1 (histidyl-tRNA synthetase) Ab, IgG . . X PL-12 (alanyl-tRNA synthetase) Antibody . . X PL-7 (threonyl-tRNA synthetase) Antibody . . X EJ (glycyl-tRNA synthetase) Antibody . . . . X OJ (isoleucyl-tRNA synthetase) Antibody . . X SRP (Signal Recognition Particle) Ab . . . . X Ku Antibody . . . . . . . . . . . . . . . . . . . . . . X PM/SCL 100 Antibody, IgG . . . . . . . . . . . . . . . . X Fibrillarin (U3 CUFF TURNER MACHINE OPERATOR) Ab, IgG . . . . . . . . . . . . . . X Mi-2 (nuclear helicase protein) Antibody . . X P155/140 Antibody . . . . . . . . . . . . . X TIF-1 gamma (155 kDa) Ab . . . . . . . . . . X SAE1 (SUMO activating enzyme) Ab . . . . . . X MDA5 (CADM-140) Ab . . . . . . . . . . . . X NXP2 (Nuclear matrix proten-2)Ab . . . . . . X This test was developed and its performance characteristics determined by [facility]. It has not been cleared or approved by the US Food and Drug Administration. This test was performed in a CLIA certified laboratory and is intended for clinical purposes. Aspergillus fumigatus #1 Ab, Preci* 06/13/2024 None Detected None Detected Final Aspergillus fumigatus #6 Ab, Preci* 06/13/2024 None Detected None Detected Final Aureobasidium pullulans Ab, Precip* 06/13/2024 None Detected None Detected Final [place] Serum Ab, Precipitin 06/13/2024 None Detected None Detected Final Micropolyspora Faeni Ab, Precipitin 06/13/2024 None Detected None Detected Final Testing includes antibodies directed at Aureobasidium pullulans, Aspergillus fumigatus #1, Aspergillus fumigatus #6, Micropolyspora faeni, and [place] Serum. Performed By: [facility] [address] [place] [address] Needle Punch Operator: Rosalee Upton MD, PhD CLIA Number: [id number] Anti-SSA 06/13/2024 <0.2 <1.0 AI Final < 1.0 = NEGATIVE >=1.0 = POSITIVE Anti-SSB 06/13/2024 <0.2 <1.0 AI Final < 1.0 = NEGATIVE >=1.0 = POSITIVE Lab on 05/02/2024 Component Date Value Ref Range Status Glucose 05/02/2024 117 (H) 74 - 99 mg/dL Final Sodium 05/02/2024 139 136 - 145 mmol/L Final Potassium 05/02/2024 4.4 3.5 - 5.3 mmol/L Final Chloride 05/02/2024 105 98 - 107 mmol/L Final Bicarbonate 05/02/2024 24 21 - 32 mmol/L Final Anion Gap 05/02/2024 14 10 - 20 mmol/L Final Urea Nitrogen 05/02/2024 20 6 - 23 mg/dL Final Creatinine 05/02/2024 1.13 (H) 0.50 - 1.05 mg/dL Final eGFR 05/02/2024 50 (L) >60 mL/min/1.73m*2 Final Calculations of estimated GFR are performed using the 2020 CKD-EPI Study Refit equation without therace variable for the IDMS-Traceable creatinine methods. https://jasn.asnjournals.org/content/early//ASN.7908305893 Calcium 05/02/2024 8.8 8.6 - 10.6 mg/dL Final Phosphorus 05/02/2024 4.2 2.5 - 4.9 mg/dL Final The performance characteristics of phosphorus testing in heparinized plasma have been validated by the individual laboratory site where testing is performed. Testing on heparinized plasma is not approved by the FDA; however, such approval is not necessary. Albumin 05/02/2024 3.8 3.4 - 5.0 g/dL Final Lab on 04/19/2024 Component Date Value Ref Range Status Glucose 04/19/2024 91 74 - 99 mg/dL Final Sodium 04/19/2024 137 136 - 145 mmol/L Final Potassium 04/19/2024 4.9 3.5 - 5.3 mmol/L Final Chloride 04/19/2024 104 98 - 107 mmol/L Final Bicarbonate 04/19/2024 22 21 - 32 mmol/L Final Anion Gap 04/19/2024 16 10 - 20 mmol/L Final Urea Nitrogen 04/19/2024 14 6 - 23 mg/dL Final Creatinine 04/19/2024 1.08 (H) 0.50 - 1.05 mg/dL Final eGFR 04/19/2024 53 (L) >60 mL/min/1.73m*2 Final Calculations of estimated GFR are performed using the 2020 CKD-EPI Study Refit equation without therace variable for the IDMS-Traceable creatinine methods. https://jasn.asnjournals.org/content//ASN.8280994044 Calcium 04/19/2024 8.7 8.6 - 10.6 mg/dL Final Albumin 04/19/2024 3.9 3.4 - 5.0 g/dL Final Alkaline Phosphatase 04/19/2024 53 33 - 136 U/L Final Total Protein 04/19/2024 6.2 (L) 6.4 - 8.2 g/dL Final AST 04/19/2024 33 9 - 39 U/L Final Bilirubin, Total 04/19/2024 0.4 0.0 - 1.2 mg/dL Final ALT 04/19/2024 48 (H) 7 - 45 U/L Final Patients treated with Sulfasalazine may generate falsely decreased results for ALT. WBC 04/19/2024 7.0 4.4 - 11.3 x10*3/uL Final nRBC 04/19/2024 0.0 0.0 - 0.0 /100 WBCs Final RBC 04/19/2024 3.12 (L) 4.00 - 5.20 x10*6/uL Final Hemoglobin 04/19/2024 9.4 (L) 12.0 - 16.0 g/dL Final Hematocrit 04/19/2024 31.6 (L) 36.0 - 46.0 % Final MCV 04/19/2024 101 (H) 80 - 100 fL Final MCH 04/19/2024 30.1 26.0 - 34.0 pg Final MCHC 04/19/2024 29.7 (L) 32.0 - 36.0 g/dL Final RDW 04/19/2024 13.6 11.5 - 14.5 % Final Platelets 04/19/2024 241 150 - 450 x10*3/uL Final There may be more visits with results that are not included. Medications Ordered Prior to Encounter[1] No images are attached to the encounter. Assessment/Plan Diagnoses and all orders for this visit: Cellulitis of right toe - doxycycline (Vibramycin) 100 mg capsule; Take 1 capsule (100 mg) by mouth 2 times a day for 10 days. Take with at least 8 ounces (large glass) of water, do not lie down for 30 minutes after 1. Patient to continue antibiotics and antibiotic cream 2. Patient to call questions or concerns [1] Current Outpatient Medications on File Prior to Visit Medication Sig Dispense Refill albuterol 90 mcg/actuation inhaler Inhale 2 puffs every 4 hours if needed. amLODIPine (Norvasc) 2.5 mg tablet Take 1 tablet (2.5 mg) by mouth early in the morning.. 90 tablet1 apixaban (Eliquis) 5 mg tablet Take 1 tablet (5 mg) by mouth twice a day. blood sugar diagnostic (Contour Next Test Strips) strip 1 each 2 times a day. 200 strip 1 carvedilol (Coreg) 12.5 mg tablet take 1 tablet (12.5 mg) by mouth 2 times daily (with meals). cholecalciferol (Vitamin D-3) 50 MCG (2000 UT) tablet Take 2 tablets (100 mcg) by mouth once daily. clindamycin (Cleocin T) 1 % lotion twice a day. Apply sparingly and massage in cyclobenzaprine (Flexeril) 5 mg tablet Take 1 tablet (5 mg) by mouth as needed at bedtime for muscle spasms. 30 tablet 0 ezetimibe (Zetia) 10 mg tablet Take 1 tablet (10 mg) by mouth once daily. finerenone (Kerendia) 10 mg tablet tablet Take 1 tablet (10 mg) by mouth once daily. 90 tablet 3 fluocinonide (Lidex) 0.05 % external solution 1 (one) time each day. Apply to affected areas icosapent ethyL (Vascepa) 1 gram capsule Take 2 capsules (2 g) by mouth twice a day. linagliptin-metformin (Jentadueto XR) 2.5-1,000 mg tablet, IR - ER, biphasic 24hr Take 2 tablets bymouth once daily. 180 tablet 3 losartan (Cozaar) 100 mg tablet Take 1 tablet (100 mg) by mouth once daily. 90 tablet 3 multivit,calc,mins/iron/folic (ONE-A-DAY WOMENS FORMULA ORAL) Take 1 tablet by mouth once daily. pantoprazole (ProtoNix) 40 mg EC tablet Take 1 tablet (40 mg) by mouth once daily in the morning. Take before meals. 90 tablet 1 rosuvastatin (Crestor) 10 mg tablet TAKE ONE TABLET BY MOUTH EVERY DAY 90 tablet 3 sertraline (Zoloft) 25 mg tablet Take 1 tablet (25 mg) by mouth once daily. tiotropium (Spiriva Respimat) 2.5 mcg/actuation inhaler Inhale 2 puffs once daily. 12 g 3 cyanocobalamin (Vitamin B-12) 1,000 mcg tablet Take 1 tablet (1,000 mcg) by mouth once daily. (Patient not taking: Reported on 02/07/2025) furosemide (Lasix) 20 mg tablet Take 1 tablet (20 mg) by mouth every other day. [] mupirocin (Bactroban) 2 % ointment Apply topically 3 times a day for 10 days. apply to affected area 22 g 0 [DISCONTINUED] cephalexin (Keflex) 500 mg capsule Take 1 capsule (500 mg) by mouth 2 times a day for 10 days. 20 capsule 0 [DISCONTINUED] pantoprazole (ProtoNix) 40 mg EC tablet Take 1 tablet (40 mg) by mouth. Take 1 tablet (40 mg) by mouth 2 times daily for 30 days, THEN 1 tablet (40 mg) every morning (before breakfast). Do not crush, chew, or split.. No current facility-administered medications on file prior to visit. documented in this [facility] Work Phone: Instructions* Name Dates Details Instructions not documented -[facility] Work Phone: Reason for referral (narrative)* Consultation (Urgent) - Pending Review Specialty Diagnoses / Procedures Referred By Nacho galloway Referred To Contact Pulmonology Diagnoses Malignant neoplasm of left breast in female, estrogen receptor negative, unspecified site of breast (HCC) (HCC) Lung nodules Procedures DE OFFICE/OUTPATIENT NEW HIGH MDM 60 MINUTES Keven Marcus MD [address] [place] [address] [facility] [place] [place] [facility] [address] [place] [address] Referral ID Status Reason Start Date Expiration Date Visits Requested Visits Authorized [id number] Pending Review Specialty Services Required 09/25/2023 09/24/2024 1 1 Riya Smith for referral (narrative)* Consultation (Routine) - Pending Review Specialty Diagnoses / Procedures Referred By Contac t Referred To Contact Cardiology Diagnoses PAF (paroxysmal atrial fibrillation) (HCC) Procedures DE OFFICE/OUTPATIENT NEW HIGH MDM 60 MINUTES Kristy Doran APRN - WINDOWS TECHNICAL SPECIALIST [address] [facility] [place] [address] [facility] [address] [place] [address] Referral ID Status Reason Start Date Expiration Date Visits Requested Visits Authorized [id number] Pending Review Specialty Services Required 02/01/2024 01/31/2025 1 1 * Hospital - Outpatient (Routine) - Pending Review Specialty Diagnoses / Procedures Referred By Contac t Referred To Contact Sleep Medicine Diagnoses PAF (paroxysmal atrial fibrillation) (HCC) Chronic systolic heart failure (HCC) INGA (obstructive sleep apnea) Procedures Home sleep test rKisty Doran APRN - [place] [address] [facility] [place] [address] [place] [address] Referral ID Status Reason Start Date Expiration Date V isits Requested Visits Authorized [id number] Pending Review 02/01/2024 01/26/2025 1 1 Riya Smith for referral (narrative)* Consultation (Routine) - Pending Review Specialty Diagnoses / Procedures Referred By Contac t Referred To Contact Primary Care Diagnoses Routine general medical examination at health care facility Procedures 1 Year Follow Up In Advanced [facility] - PCP - Wellness Exam Celia Al, DO [address] [facility] [place] [address] Referral ID Status Reason Start Date Expiration Date V isits Requested Visits Authorized [id number] Pending Review 11/04/2022 05/03/2023 1 1 * Endoscopy (Routine) - Pending Review Specialty Diagnoses / Procedures Referred By Nacho t Referred To Contact Gastroenterology Diagnoses Healthcare maintenance Procedures Colonoscopy Celia Al DO [address] [facility] [place] [address] Referral ID Status Reason Start Date Expiration Date V isits Requested Visits Authorized [id number] Pending Review 11/04/2022 05/03/2023 1 1 [facility] Work Phone: Reason for referral (narrative)No reason for referral information [facility] Work Phone: Reason for visit Narrative* Hospital - Outpatient (Routine) - Closed Specialty Diagnoses / Procedures Referred By Nacho galloway Referred To Contact Sleep Medicine Diagnoses INGA (obstructive sleep apnea) Procedures Polysomnography Kristy Doran, DEWATERER OPERATOR - WINDOWS TECHNICAL SPECIALIST [address] 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) Essential hypertension Procedures Transthoracic echocardiogram (TTE) complete with contrast, bubble, strain, and 3D PRN DE ECHO TTHRC R-T 2D W/WOM-MODE COMPL SPEC&COLR D DE TTE W OR WO FOL WCON,Gi Fisher, DEWATERER OPERATOR - WINDOWS TECHNICAL SPECIALIST [address] [facility] [address] [place] [address] Phone: tel: fax: Referral ID Status Reason Start Date Expiration Date Visits Re quested Visits Authorized [id number] Closed 06/01/2024 06/01/2025 1 1 [employer]terReason for visit Narrative* Imaging (Routine) - Closed Specialty Diagnoses / Procedures Referred By Contac t Referred To Contact Radiology Diagnoses Organizing pneumonia (CMS/HCC) (HCC) Pulmonary infiltrates Pulmonary nodules Procedures CT chest wo IV contrast Natalia-Chavez, Stephanie, DO [address] [place] [address] Phone: tel: fax: Referral ID Status Reason Start Date Expiration Date Visits Re quested Visits Authorized [id number] Closed 06/07/2024 06/07/2025 1 1 NTRglobalReason for visit Narrative* Imaging (Emergency) - Authorized Specialty Diagnoses / Procedures Referred By Contac t Referred To Contact Radiology Diagnoses Acute bronchitis, unspecified organism Procedures XR chest 2 views Celia Al, DO [address] [facility] [place] [address] Phone: tel: fax: Referral ID Status Reason Start Date Expiration Date Visits Requested Visits Authorized [id number] Authorized Perform Procedure 10/03/2024 10/03/2025 1 1 [facility] Work Phone: Revgqb for visit Narrative* Imaging (Routine) - Closed Specialty Diagnoses / Procedures Referred By Contac t Referred To Contact Radiology Diagnoses Organizing pneumonia (CMS/HCC) (HCC) Procedures CT chest wo IV contrast Natalia-Chavez, Stephanie, DO [address] [place] [address] Phone: tel: fax: Referral ID Status Reason Start Date Expiration Date Visits Re quested Visits Authorized [id number] Closed 08/19/2024 08/19/2025 1 1 [facility] N[facility]* Consultation (Routine) - Authorized Specialty Diagnoses / Procedures Referred By Contac t Referred To Contact Cardiac Rehabilitation / Cardiology Diagnoses Chronic obstructive pulmonary disease, unspecified COPD type (HCC) Procedures DE OFFICE/OUTPATIENT NEW HIGH MDM 60 MINUTES Stephanie Arana DO [address] [facility] [place] [address] Phone: tel: fax: [facility] [address] [facility] [address] [place] [address] Phone: tel: Referral ID Status Reason Start Date Expiration Date Visits Requested Visits Authorized [id number] Authorized Specialty Services Required 10/28/2024 10/28/2025 36 36 [facility] Narrative* Imaging (Routine) - Closed Specialty Diagnoses / Procedures [facility] To Contact Pulmonology Diagnoses Chronic obstructive pulmonary disease, unspecified COPD type (HCC) Organizing pneumonia (CMS/HCC) (HCC) Pulmonary emphysema, unspecified emphysema type (HCC) Procedures Complete PFT with body plethysmography Nickolas Pagan MD [address] [facility] [address] [place] [address] Phone: tel: fax: Referral ID Status Reason Start Date Expiration Date Visits Re quested Visits Authorized [id number] Closed 12/28/2024 12/23/2025 1 1 [facility] [employer] for visit Narrative* Cardiology (Routine) - Closed Specialty Diagnoses / Procedures [facility] Referred To Contact Cardiology Diagnoses PAF (paroxysmal atrial fibrillation) (HCC) 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) Essential hypertension Coronary artery calcification Procedures Nuclear REGADENOSON stress test with myocardial perfusion Marcia Correa, SUJATA - FRANSISCO [address] [facility] [address] [place] [address] Phone: tel: fax: Referral ID Status Reason Start Date Expiration Date Visits Re quested Visits Authorized [id number] Closed 09/16/2024 05/17/2025 1 1 [facility] [employer] for visit Narrative* Diagnostic Procedure Only (Routine) - Closed Specialty Diagnoses / Procedures [facility] Referred To Contact XR IMAGING Diagnoses Lumbar stenosis with neurogenic claudication Procedures XR SCOLIOSIS PA STAND/LAT 2V RADEX ENTIR THRC LMBR CRV SAC SPI W/SKULL 2/3 VW Dominick Huggins MD [address] [place] [address] Phone: tel: fax: [place] [address] Referral ID Status Reason Start Date Expiration Date V isits Requested Visits Authorized [id number] Closed Auto-Generate d Referral 01/11/2025 02/10/2026 1 1 [facility] for visit Narrative* Diagnostic Procedure Only (Routine) - Closed Specialty Diagnoses / Procedures Referred By Contmatthew t Referred To Contact XR IMAGING Diagnoses Spinal stenosis of cervical region Procedures XR CERV OTHER 4V AP/LAT/FLX/EXT RADEX SPINE CERVICAL 4 OR 5 VIEWS Dominick Huggins MD [address] [place] [address] Phone: tel: fax: [place] [address] Referral ID Status Reason Start Date Expiration Date V isits Requested Visits Authorized [id number] Closed Auto-Generate d Referral 01/26/2025 02/25/2026 1 1 [facility] for visit Narrative* MRI/CT (Routine) - Closed Specialty Diagnoses / Procedures Referred By Contac t Referred To Contact MR IMAGING Diagnoses Spinal stenosis of cervical region Procedures MRI CERVICAL SPINE WO IVCON MRI SPINAL CANAL CERVICAL W/O CONTRAST MATRL Dominick Huggins MD [address] [facility] [place] [address] Phone: tel: fax: [place] [address] Referral ID Status Reason Start Date Expiration Date V isits Requested Visits Authorized [id number] Closed Auto-Generate d Referral 01/24/2025 03/25/2025 1 1 [facility] for visit Narrative* MRI/CT (Routine) - Closed Specialty Diagnoses / Procedures Referred By Contac t Referred To Contact MR IMAGING Diagnoses Spinal stenosis of lumbar region with neurogenic claudication Procedures MRI LUMBAR SPINE WO IVCON MRI SPINAL CANAL LUMBAR W/O CONTRAST MATERIAL Dominick Huggins MD [address] [place] [address] Phone: tel: fax: [place] [address] Referral ID Status Reason Start Date Expiration Date V isits Requested Visits Authorized [id number] Closed Auto-Generate d Referral 01/24/2025 03/25/2025 1 1 [facility] Instructions Instruction Description Start Date Patient advised to follow-up with Primary Care Physician for BMI management. Name Dates Details Instructions not documented Name Dates Details Instructions not documented Name Dates Details Instructions not documented Name Dates Details Instructions not documented Name Dates Details Instructions not documented Name Dates Details Instructions not documented Name Dates Details Instructions not documented Name Dates Details Instructions not documented Name Dates Details Instructions not documented Advance Directives No Advanced Directives Records FoundDocuments on File Type Date Recorded Patient Test Lead Application Testing Expl anation ACP-Advance Directive ACP-Power of Security Patrol Driver Documents on File Type Date Recorded Patient Test Lead Application Testing Expl anation ACP-Advance Directive ACP-Power of Security Patrol Driver Latest Code Status on File Code Status Date Activated Date Inactivated Comments Full Code 10/05/2023 7:50 AM Latest Code Status on File Code Status Date Activated Date Inactivated Comments Full Code 10/05/2023 7:50 AM 10/06/2023 9:06 PM Latest Code Status on File Code Status Date Activated Date Inactivated Comments Full Code 10/05/2023 7:50 AM 10/06/2023 9:06 PM Healthcare Agents on File Name Relationship Healthcare Agent Relationship Communication Bill Lorraine Spouse Health Care Agent [email or web address] [place] Daughter First Alternate Health Care Agent [email or web address] Agents on File Name Relationship Healthcare Agent Relationship Communication Bill Lorraine Spouse Health Care Agent [email or web address] Daughter First Alternate Health Care Agent [email or web address] Latest Code Status on File Code Status Date Activated Date Inactivated Comments Full Code 01/19/2024 7:30 PM 01/22/2024 7:58 PM Code Status History Code Status Date Activated Date Inactivated Comments Full Code 10/05/2023 7:50 AM 10/06/2023 9:06 PM Healthcare Agents on File Name Relationship Healthcare Agent Relationship Communication Jin Peters Spouse Health Care Agent [email or web address] Daughter First Alternate Health Care Agent [email or web address] Code Status on File Code Status Date Activated Date Inactivated Comments Full Code 01/19/2024 7:30 PM 01/22/2024 7:58 PM Code Status History Code Status Date Activated Date Inactivated Comments Full Code 10/05/2023 7:50 AM 10/06/2023 9:06 PM Date Activated Date Inactivated Comments 01/19/2024 7:30 PM 01/22/2024 7:58 PM Date Activated Date Inactivated Comments 10/05/2023 7:50 AM 10/06/2023 9:06 PM Date Activated Date Inactivated Comments 01/19/2024 7:30 PM 01/22/2024 7:58 PM Date Activated Date Inactivated Comments 10/05/2023 7:50 AM 10/06/2023 9:06 PM Healthcare Agents on File Name Relationship Healthcare Agent Relationship Communication Jin Peters Spouse Health Care Agent [email or web address] [email or web address] Daughter First Alternate Health Care Agent [email or web address] Agents on File Name Relationship Healthcare Agent Relationship Communication Jin Peters Spouse Health Care Agent [email or web address] Daughter First Alternate Health Care Agent [email or web address] Date Activated Date Inactivated Comments 05/05/2024 10:36 AM 05/06/2024 8:31 AM Date Activated Date Inactivated Comments 01/19/2024 7:30 PM 01/22/2024 7:58 PM Date Activated Date Inactivated Comments 10/05/2023 7:50 AM 10/06/2023 9:06 PM Date Activated Date Inactivated Comments 05/05/2024 10:36 AM 05/06/2024 8:31 AM Date Activated Date Inactivated Comments 01/19/2024 7:30 PM 01/22/2024 7:58 PM Date Activated Date Inactivated Comments 10/05/2023 7:50 AM 10/06/2023 9:06 PM Healthcare Agents on File Name Relationship Healthcare Agent Relationship Communication Bill Lorraine Spouse Health Care Agent [phone] (Home) [email or web address] [place] Daughter First Alternate Health Care Agent [email or web address] Date Activated Date Inactivated Comments 08/26/2024 9:01 PM 08/29/2024 6:31 PM Date Activated Date Inactivated Comments 05/05/2024 10:36 AM 05/06/2024 8:31 AM Date Activated Date Inactivated Comments 01/19/2024 7:30 PM 01/22/2024 7:58 PM Date Activated Date Inactivated Comments 10/05/2023 7:50 AM 10/06/2023 9:06 PM Healthcare Agents on File Name Relationship Healthcare Agent Relationship Communication Bill Lorraine Spouse Health Care Agent [email or web address] Daughter First Alternate Health Care Agent [email or web address] Date Activated Date Inactivated Comments 08/26/2024 9:01 PM 08/29/2024 6:31 PM Date Activated Date Inactivated Comments 05/05/2024 10:36 AM 05/06/2024 8:31 AM Date Activated Date Inactivated Comments 01/19/2024 7:30 PM 01/22/2024 7:58 PM Date Activated Date Inactivated Comments 10/05/2023 7:50 AM 10/06/2023 9:06 PM Healthcare Agents on File Name Relationship Healthcare Agent Relationship Communication Bill Lorraine Spouse Health Care Agent [email or web address] E[place] Daughter First Alternate Health Care Agent [email or web address] Agents on File Name Relationship Healthcare Agent Relationship Communication Bill Lorraine Spouse Health Care Agent [email or web address] Eneconnie [place] Daughter First Alternate Health Care Agent [email or web address] Agents on File Name Relationship Healthcare Agent Relationship Communication Jin Peters Spouse Health Care Agent [email or web address] [place] Daughter First Alternate Health Care Agent [email or web address] Activated Date Inactivated Comments 11/08/2024 5:45 PM 11/11/2024 4:24 PM Date Activated Date Inactivated Comments 08/26/2024 9:01 PM 08/29/2024 6:31 PM Date Activated Date Inactivated Comments 05/05/2024 10:36 AM 05/06/2024 8:31 AM Date Activated Date Inactivated Comments 01/19/2024 7:30 PM 01/22/2024 7:58 PM Date Activated Date Inactivated Comments 10/05/2023 7:50 AM 10/06/2023 9:06 PM Healthcare Agents on File Name Relationship Healthcare Agent Relationship Communication Jin Peters Spouse Health Care Agent [email or web address] Ene[place]nie [place] Daughter First Alternate Health Care Agent [email or web address] Agents on File Name Relationship Healthcare Agent Relationship Communication Jin Peters Spouse Health Care Agent [email or web address] Daughter First Alternate Health Care Agent [email or web address] Date Activated Date Inactivated Comments 11/08/2024 5:45 PM 11/11/2024 4:24 PM Date Activated Date Inactivated Comments 08/26/2024 9:01 PM 08/29/2024 6:31 PM Date Activated Date Inactivated Comments 05/05/2024 10:36 AM 05/06/2024 8:31 AM Date Activated Date Inactivated Comments 01/19/2024 7:30 PM 01/22/2024 7:58 PM Date Activated Date Inactivated Comments 10/05/2023 7:50 AM 10/06/2023 9:06 PM Healthcare Agents on File Name Relationship Healthcare Agent Relationship Communication Jin Peters Spouse Health Care Agent [email or web address] Eneconnie Negrete Daughter First Alternate Health Care Agent [email or web address] Documents on File Type Date Recorded Patient Test Lead [email or web address] Power [facility] Atty 12/26/2024 12:00 AM Living Will 12/26/2024 12:00 AM Healthcare Agents on File Name Relationship Healthcare Agent Relationship Communication Jin Peters Spouse Health Care Agent [email or web address] [place] Daughter First Alternate Health Care Agent [email or web address] Agents on File Name Relationship Healthcare Agent Relationship Communication Jin Peters Spouse Health Care Agent [email or web address] [place] Daughter First Alternate Health Care Agent [email or web address] Diagnosis Occlusion and stenosis of left carotid artery Occlusion and stenosis of carotid artery without mention of cerebral infarction Cardiac murmur, unspecified Newly recognized heart murmur Undiagnosed cardiac murmurs Carotid stenosis, left Occlusion and stenosis of carotid artery without mention of cerebral infarction Review of System There may be information available, but it has not been provided by the sender. Family History No Family History Records FoundUnknown Family Member Name Dates Details Family history of heart murm ur(V17.49, Z82.49) Comments:Other Status:Active Family history of hypertensi on(V17.49, Z82.49) Comments:Other Status:Active Family history of Ovarian ca ncer(183.0, C56.9) Comments:Other Status:Active Family history of leukemia(V 16.6, Z80.6) Comments:Other Status:Active Family history of arthritis( V17.7, Z82.61) Comments:Other Status:Active Family history of malignant neoplasm of female breast(V16.3, Z80.3) Comments:Other Status:Active Mother Name Dates Details No pertinent family history( V49.89, Z78.9) Status:Active Unknown Family Member Name Dates Details Family history of heart murm ur(V17.49, Z82.49) Comments:Other Status:Active Family history of hypertensi on(V17.49, Z82.49) Comments:Other Status:Active Family history of Ovarian ca ncer(183.0, C56.9) Comments:Other Status:Active Family history of leukemia(V 16.6, Z80.6) Comments:Other Status:Active Family history of arthritis( V17.7, Z82.61) Comments:Other Status:Active Family history of malignant neoplasm of female breast(V16.3, Z80.3) Comments:Other Status:Active Mother Name Dates Details No pertinent family history( V49.89, Z78.9) Status:Active Unknown Family Member Name Dates Details Family history of heart murm ur(V17.49, Z82.49) Comments:Other Status:Active Family history of hypertensi on(V17.49, Z82.49) Comments:Other Status:Active Family history of Ovarian ca ncer(183.0, C56.9) Comments:Other Status:Active Family history of leukemia(V 16.6, Z80.6) Comments:Other Status:Active Family history of arthritis( V17.7, Z82.61) Comments:Other Status:Active Family history of malignant neoplasm of female breast(V16.3, Z80.3) Comments:Other Status:Active Mother Name Dates Details No pertinent family history( V49.89, Z78.9) Status:Active Unknown Family Member Name Dates Details Family history of heart murm ur(V17.49, Z82.49) Comments:Other Status:Active Family history of hypertensi on(V17.49, Z82.49) Comments:Other Status:Active Family history of Ovarian ca ncer(183.0, C56.9) Comments:Other Status:Active Family history of leukemia(V 16.6, Z80.6) Comments:Other Status:Active Family history of arthritis( V17.7, Z82.61) Comments:Other Status:Active Family history of malignant neoplasm of female breast(V16.3, Z80.3) Comments:Other Status:Active Mother Name Dates Details No pertinent family history( V49.89, Z78.9) Status:Active Unknown Family Member Name Dates Details Family history of heart murm ur(V17.49, Z82.49) Comments:Other Status:Active Family history of hypertensi on(V17.49, Z82.49) Comments:Other Status:Active Family history of Ovarian ca ncer(183.0, C56.9) Comments:Other Status:Active Family history of leukemia(V 16.6, Z80.6) Comments:Other Status:Active Family history of arthritis( V17.7, Z82.61) Comments:Other Status:Active Family history of malignant neoplasm of female breast(V16.3, Z80.3) Comments:Other Status:Active Mother Name Dates Details No pertinent family history( V49.89, Z78.9) Status:Active Unknown Family Member Name Dates Details Family history of heart murm ur(V17.49, Z82.49) Comments:Other Status:Active Family history of hypertensi on(V17.49, Z82.49) Comments:Other Status:Active Family history of Ovarian ca ncer(183.0, C56.9) Comments:Other Status:Active Family history of leukemia(V 16.6, Z80.6) Comments:Other Status:Active Family history of arthritis( V17.7, Z82.61) Comments:Other Status:Active Family history of malignant neoplasm of female breast(V16.3, Z80.3) Comments:Other Status:Active Mother Name Dates Details No pertinent family history( V49.89, Z78.9) Status:Active Unknown Family Member Name Dates Details Family history of heart murm ur(V17.49, Z82.49) Comments:Other Status:Active Family history of hypertensi on(V17.49, Z82.49) Comments:Other Status:Active Family history of Ovarian ca ncer(183.0, C56.9) Comments:Other Status:Active Family history of leukemia(V 16.6, Z80.6) Comments:Other Status:Active Family history of arthritis( V17.7, Z82.61) Comments:Other Status:Active Family history of malignant neoplasm of female breast(V16.3, Z80.3) Comments:Other Status:Active Mother Name Dates Details No pertinent family history( V49.89, Z78.9) Status:Active Unknown Family Member Name Dates Details Family history of heart murm ur(V17.49, Z82.49) Comments:Other Status:Active Family history of hypertensi on(V17.49, Z82.49) Comments:Other Status:Active Family history of Ovarian ca ncer(183.0, C56.9) Comments:Other Status:Active Family history of leukemia(V 16.6, Z80.6) Comments:Other Status:Active Family history of arthritis( V17.7, Z82.61) Comments:Other Status:Active Family history of malignant neoplasm of female breast(V16.3, Z80.3) Comments:Other Status:Active Mother Name Dates Details No pertinent family history( V49.89, Z78.9) Status:Active Unknown Family Member Name Dates Details Family history of heart murm ur(V17.49, Z82.49) Comments:Other Status:Active Family history of hypertensi on(V17.49, Z82.49) Comments:Other Status:Active Family history of Ovarian ca ncer(183.0, C56.9) Comments:Other Status:Active Family history of leukemia(V 16.6, Z80.6) Comments:Other Status:Active Family history of arthritis( V17.7, Z82.61) Comments:Other Status:Active Family history of malignant neoplasm of female breast(V16.3, Z80.3) Comments:Other Status:Active Mother Name Dates Details No pertinent family history( V49.89, Z78.9) Status:Active Unknown Family Member Name Dates Details Family history of heart murm ur(V17.49, Z82.49) Comments:Other Status:Active Family history of hypertensi on(V17.49, Z82.49) Comments:Other Status:Active Family history of Ovarian ca ncer(183.0, C56.9) Comments:Other Status:Active Family history of leukemia(V 16.6, Z80.6) Comments:Other Status:Active Family history of arthritis( V17.7, Z82.61) Comments:Other Status:Active Family history of malignant neoplasm of female breast(V16.3, Z80.3) Comments:Other Status:Active Mother Name Dates Details No pertinent family history( V49.89, Z78.9) Status:Active Unknown Family Member Name Dates Details Family history of heart murm ur: Other(V17.49, Z82.49) Status:Active Family history of hypertensi on: Other(V17.49, Z82.49) Status:Active Ovarian cancer: Other Status:Active Family history of leukemia: Other(V16.6, Z80.6) Status:Active Family history of arthritis: Other(V17.7, Z82.61) Status:Active Family history of malignant neoplasm of female breast: Other(V16.3, Z80.3) Status:Active No pertinent family history: Mother(V49.89, Z78.9) Status:Active Unknown Family Member Name Dates Details No pertinent family history: Mother(V49.89, Z78.9) Status:Active Family history of heart murm ur: Other(V17.49, Z82.49) Status:Active Family history of hypertensi on: Other(V17.49, Z82.49) Status:Active Ovarian cancer: Other Status:Active Family history of leukemia: Other(V16.6, Z80.6) Status:Active Family history of arthritis: Other(V17.7, Z82.61) Status:Active Family history of malignant neoplasm of female breast: Other(V16.3, Z80.3) Status:Active Unknown Family Member Name Dates Details Family history of heart murm ur: Other(V17.49, Z82.49) Status:Active Family history of hypertensi on: Other(V17.49, Z82.49) Status:Active Ovarian cancer: Other Status:Active Family history of leukemia: Other(V16.6, Z80.6) Status:Active Family history of arthritis: Other(V17.7, Z82.61) Status:Active Family history of malignant neoplasm of female breast: Other(V16.3, Z80.3) Status:Active No pertinent family history: Mother(V49.89, Z78.9) Status:Active Unknown Family Member Name Dates Details No pertinent family history: Mother(V49.89, Z78.9) Status:Active Family history of malignant neoplasm of female breast: Other(V16.3, Z80.3) Status:Active Family history of arthritis: Other(V17.7, Z82.61) Status:Active Family history of leukemia: Other(V16.6, Z80.6) Status:Active Ovarian cancer: Other Status:Active Family history of hypertensi on: Other(V17.49, Z82.49) Status:Active Family history of heart murm ur: Other(V17.49, Z82.49) Status:Active Unknown Family Member Name Dates Details Family history of heart murm ur: Other(V17.49, Z82.49) Status:Active Family history of hypertensi on: Other(V17.49, Z82.49) Status:Active Ovarian cancer: Other Status:Active Family history of leukemia: Other(V16.6, Z80.6) Status:Active Family history of arthritis: Other(V17.7, Z82.61) Status:Active Family history of malignant neoplasm of female breast: Other(V16.3, Z80.3) Status:Active No pertinent family history: Mother(V49.89, Z78.9) Status:Active Unknown Family Member Name Dates Details No pertinent family history: Mother(V49.89, Z78.9) Status:Active Family history of malignant neoplasm of female breast: Other(V16.3, Z80.3) Status:Active Family history of arthritis: Other(V17.7, Z82.61) Status:Active Family history of leukemia: Other(V16.6, Z80.6) Status:Active Ovarian cancer: Other Status:Active Family history of hypertensi on: Other(V17.49, Z82.49) Status:Active Family history of heart murm ur: Other(V17.49, Z82.49) Status:Active Unknown Family Member Name Dates Details No pertinent family history: Mother(V49.89, Z78.9) Status:Active Family history of malignant neoplasm of female breast: Other(V16.3, Z80.3) Status:Active Family history of arthritis: Other(V17.7, Z82.61) Status:Active Family history of leukemia: Other(V16.6, Z80.6) Status:Active Ovarian cancer: Other Status:Active Family history of hypertensi on: Other(V17.49, Z82.49) Status:Active Family history of heart murm ur: Other(V17.49, Z82.49) Status:Active Unknown Family Member Name Dates Details Family history of heart murm ur: Other(V17.49, Z82.49) Status:Active Family history of hypertensi on: Other(V17.49, Z82.49) Status:Active Ovarian cancer: Other Status:Active Family history of leukemia: Other(V16.6, Z80.6) Status:Active Family history of arthritis: Other(V17.7, Z82.61) Status:Active Family history of malignant neoplasm of female breast: Other(V16.3, Z80.3) Status:Active No pertinent family history: Mother(V49.89, Z78.9) Status:Active Unknown Family Member Name Dates Details Family history of heart murm ur: Other(V17.49, Z82.49) Status:Active Family history of hypertensi on: Other(V17.49, Z82.49) Status:Active Ovarian cancer: Other Status:Active Family history of leukemia: Other(V16.6, Z80.6) Status:Active Family history of arthritis: Other(V17.7, Z82.61) Status:Active Family history of malignant neoplasm of female breast: Other(V16.3, Z80.3) Status:Active No pertinent family history: Mother(V49.89, Z78.9) Status:Active Unknown Family Member Name Dates Details Family history of heart murm ur: Other(V17.49, Z82.49) Status:Active Family history of hypertensi on: Other(V17.49, Z82.49) Status:Active Ovarian cancer: Other Status:Active Family history of leukemia: Other(V16.6, Z80.6) Status:Active Family history of arthritis: Other(V17.7, Z82.61) Status:Active Family history of malignant neoplasm of female breast: Other(V16.3, Z80.3) Status:Active No pertinent family history: Mother(V49.89, Z78.9) Status:Active Unknown Family Member Name Dates Details Family history of heart murm ur: Other(V17.49, Z82.49) Status:Active Family history of hypertensi on: Other(V17.49, Z82.49) Status:Active Ovarian cancer: Other Status:Active Family history of leukemia: Other(V16.6, Z80.6) Status:Active Family history of arthritis: Other(V17.7, Z82.61) Status:Active Family history of malignant neoplasm of female breast: Other(V16.3, Z80.3) Status:Active No pertinent family history: Mother(V49.89, Z78.9) Status:Active Unknown Family Member Name Dates Details Family history of heart murm ur: Other(V17.49, Z82.49) Status:Active Family history of hypertensi on: Other(V17.49, Z82.49) Status:Active Ovarian cancer: Other Status:Active Family history of leukemia: Other(V16.6, Z80.6) Status:Active Family history of arthritis: Other(V17.7, Z82.61) Status:Active Family history of malignant neoplasm of female breast: Other(V16.3, Z80.3) Status:Active No pertinent family history: Mother(V49.89, Z78.9) Status:Active Unknown Family Member Name Dates Details No pertinent family history: Mother(V49.89, Z78.9) Status:Active Family history of malignant neoplasm of female breast: Other(V16.3, Z80.3) Status:Active Family history of arthritis: Other(V17.7, Z82.61) Status:Active Family history of leukemia: Other(V16.6, Z80.6) Status:Active Ovarian cancer: Other Status:Active Family history of hypertensi on: Other(V17.49, Z82.49) Status:Active Family history of heart murm ur: Other(V17.49, Z82.49) Status:Active Unknown Family Member Name Dates Details Family history of heart murm ur: Other(V17.49, Z82.49) Status:Active Family history of hypertensi on: Other(V17.49, Z82.49) Status:Active Ovarian cancer: Other Status:Active Family history of leukemia: Other(V16.6, Z80.6) Status:Active Family history of arthritis: Other(V17.7, Z82.61) Status:Active Family history of malignant neoplasm of female breast: Other(V16.3, Z80.3) Status:Active No pertinent family history: Mother(V49.89, Z78.9) Status:Active Unknown Family Member Name Dates Details Family history of heart murm ur: Other(V17.49, Z82.49) Status:Active Family history of hypertensi on: Other(V17.49, Z82.49) Status:Active Ovarian cancer: Other Status:Active Family history of leukemia: Other(V16.6, Z80.6) Status:Active Family history of arthritis: Other(V17.7, Z82.61) Status:Active Family history of malignant neoplasm of female breast: Other(V16.3, Z80.3) Status:Active No pertinent family history: Mother(V49.89, Z78.9) Status:Active Unknown Family Member Name Dates Details No pertinent family history: Mother(V49.89, Z78.9) Status:Active Family history of malignant neoplasm of female breast: Other(V16.3, Z80.3) Status:Active Family history of arthritis: Other(V17.7, Z82.61) Status:Active Family history of leukemia: Other(V16.6, Z80.6) Status:Active Ovarian cancer: Other Status:Active Family history of hypertensi on: Other(V17.49, Z82.49) Status:Active Family history of heart murm ur: Other(V17.49, Z82.49) Status:Active Unknown Family Member Name Dates Details Family history of heart murm ur: Other(V17.49, Z82.49) Status:Active Family history of hypertensi on: Other(V17.49, Z82.49) Status:Active Ovarian cancer: Other Status:Active Family history of leukemia: Other(V16.6, Z80.6) Status:Active Family history of arthritis: Other(V17.7, Z82.61) Status:Active Family history of malignant neoplasm of female breast: Other(V16.3, Z80.3) Status:Active No pertinent family history: Mother(V49.89, Z78.9) Status:Active Unknown Family Member Name Dates Details Family history of heart murm ur: Other(V17.49, Z82.49) Status:Active Family history of hypertensi on: Other(V17.49, Z82.49) Status:Active Ovarian cancer: Other Status:Active Family history of leukemia: Other(V16.6, Z80.6) Status:Active Family history of arthritis: Other(V17.7, Z82.61) Status:Active Family history of malignant neoplasm of female breast: Other(V16.3, Z80.3) Status:Active No pertinent family history: Mother(V49.89, Z78.9) Status:Active Unknown Family Member Name Dates Details No pertinent family history: Mother(V49.89, Z78.9) Status:Active Family history of malignant neoplasm of female breast: Other(V16.3, Z80.3) Status:Active Family history of arthritis: Other(V17.7, Z82.61) Status:Active Family history of leukemia: Other(V16.6, Z80.6) Status:Active Ovarian cancer: Other Status:Active Family history of hypertensi on: Other(V17.49, Z82.49) Status:Active Family history of heart murm ur: Other(V17.49, Z82.49) Status:Active Unknown Family Member Name Dates Details Family history of heart murm ur: Other(V17.49, Z82.49) Status:Active Family history of hypertensi on: Other(V17.49, Z82.49) Status:Active Ovarian cancer: Other Status:Active Family history of leukemia: Other(V16.6, Z80.6) Status:Active Family history of arthritis: Other(V17.7, Z82.61) Status:Active Family history of malignant neoplasm of female breast: Other(V16.3, Z80.3) Status:Active No pertinent family history: Mother(V49.89, Z78.9) Status:Active Unknown Family Member Name Dates Details Family history of heart murm ur: Other(V17.49, Z82.49) Status:Active Family history of hypertensi on: Other(V17.49, Z82.49) Status:Active Ovarian cancer: Other Status:Active Family history of leukemia: Other(V16.6, Z80.6) Status:Active Family history of arthritis: Other(V17.7, Z82.61) Status:Active Family history of malignant neoplasm of female breast: Other(V16.3, Z80.3) Status:Active No pertinent family history: Mother(V49.89, Z78.9) Status:Active Unknown Family Member Name Dates Details Family history of heart murm ur: Other(V17.49, Z82.49) Status:Active Family history of hypertensi on: Other(V17.49, Z82.49) Status:Active Ovarian cancer: Other Status:Active Family history of leukemia: Other(V16.6, Z80.6) Status:Active Family history of arthritis: Other(V17.7, Z82.61) Status:Active Family history of malignant neoplasm of female breast: Other(V16.3, Z80.3) Status:Active No pertinent family history: Mother(V49.89, Z78.9) Status:Active Unknown Family Member Name Dates Details Family history of heart murm ur: Other(V17.49, Z82.49) Status:Active Family history of hypertensi on: Other(V17.49, Z82.49) Status:Active Ovarian cancer: Other Status:Active Family history of leukemia: Other(V16.6, Z80.6) Status:Active Family history of arthritis: Other(V17.7, Z82.61) Status:Active Family history of malignant neoplasm of female breast: Other(V16.3, Z80.3) Status:Active No pertinent family history: Mother(V49.89, Z78.9) Status:Active Unknown Family Member Name Dates Details Family history of heart murm ur: Other(V17.49, Z82.49) Status:Active Family history of hypertensi on: Other(V17.49, Z82.49) Status:Active Ovarian cancer: Other Status:Active Family history of leukemia: Other(V16.6, Z80.6) Status:Active Family history of arthritis: Other(V17.7, Z82.61) Status:Active Family history of malignant neoplasm of female breast: Other(V16.3, Z80.3) Status:Active No pertinent family history: Mother(V49.89, Z78.9) Status:Active Unknown Family Member Name Dates Details Family history of heart murm ur: Other(V17.49, Z82.49) Status:Active Family history of hypertensi on: Other(V17.49, Z82.49) Status:Active Ovarian cancer: Other Status:Active Family history of leukemia: Other(V16.6, Z80.6) Status:Active Family history of arthritis: Other(V17.7, Z82.61) Status:Active Family history of malignant neoplasm of female breast: Other(V16.3, Z80.3) Status:Active No pertinent family history: Mother(V49.89, Z78.9) Status:Active Unknown Family Member Name Dates Details Family history of heart murm ur: Other(V17.49, Z82.49) Status:Active Family history of hypertensi on: Other(V17.49, Z82.49) Status:Active Ovarian cancer: Other Status:Active Family history of leukemia: Other(V16.6, Z80.6) Status:Active Family history of arthritis: Other(V17.7, Z82.61) Status:Active Family history of malignant neoplasm of female breast: Other(V16.3, Z80.3) Status:Active No pertinent family history: Mother(V49.89, Z78.9) Status:Active Unknown Family Member Name Dates Details No pertinent family history: Mother(V49.89, Z78.9) Status:Active Family history of malignant neoplasm of female breast: Other(V16.3, Z80.3) Status:Active Family history of arthritis: Other(V17.7, Z82.61) Status:Active Family history of leukemia: Other(V16.6, Z80.6) Status:Active Ovarian cancer: Other Status:Active Family history of hypertensi on: Other(V17.49, Z82.49) Status:Active Family history of heart murm ur: Other(V17.49, Z82.49) Status:Active Unknown Family Member Name Dates Details Family history of heart murm ur: Other(V17.49, Z82.49) Status:Active Family history of hypertensi on: Other(V17.49, Z82.49) Status:Active Ovarian cancer: Other Status:Active Family history of leukemia: Other(V16.6, Z80.6) Status:Active Family history of arthritis: Other(V17.7, Z82.61) Status:Active Family history of malignant neoplasm of female breast: Other(V16.3, Z80.3) Status:Active No pertinent family history: Mother(V49.89, Z78.9) Status:Active Relationship Condition Age at Onset Recorded Date/T yo Not Specified Cardiac disease Unknown Kidney disorder Unknown Malignant neoplasm Unknown Hypertension Unknown Cerebrovascular accident (CVA) Unknown Reason for Referral Status Reason Specialty Diagnoses / Procedures Referred By Contact Referred To Contact Closed Vascular Lab Diagnoses Carotid stenosis, left Procedures VL DUP CAROTID BILATERAL Rashi Jerome MD [address] [facility] [place] [address] Status Reason Specialty Diagnoses / Procedures Referre d By Contact Referred To Contact Closed Cardiology Diagnoses Newly recognized heart murmur Procedures Echo 2D Doppler Color Rashi Jerome MD [address] [facility] [place] [address] Status Reason Specialty Diagnoses / Procedures Referred By Contact Referred To Contact Closed Vascular Lab Diagnoses Bilateral carotid artery stenosis Procedures VL DUP CAROTID BILATERAL Rashi Jerome MD [address] [facility] [place] [address] Specialty Diagnoses / Procedures Referred By Contac t Referred To Contact Vascular Lab Diagnoses Bilateral carotid artery stenosis Procedures VL DUP CAROTID BILATERAL Rashi Jerome MD [address] 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 Weight loss Procedures NM bone whole body Keven Marcus MD [address] [place] [address] Referral ID Status Reason Start Date Expiration Date V isits Requested Visits Authorized [id number] Authorized 12/02/2022 05/31/2023 2 2 Specialty Diagnoses / Procedures Referred By Contac t Referred To Contact Radiology Diagnoses Malignant neoplasm of left breast in female, estrogen receptor negative, unspecified site of breast (HCC) 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 Weight loss Procedures CT chest abdomen pelvis with contrast Keven Marcus MD [address] [place] [address] Referral ID Status Reason Start Date Expiration Date Visits Re quested Visits Authorized [id number] Closed 12/02/2022 05/31/2023 1 1 Specialty Diagnoses / Procedures Referred By Contac t Referred To Contact Radiology Diagnoses Malignant neoplasm of left breast in female, estrogen receptor negative, unspecified site of breast (HCC) Procedures CT chest wo IV contrast Keven Marcus MD [address] [place] [id number] Referral ID Status Reason Start Date Expiration Date V isits Requested Visits Authorized [id number] Pending Review 12/18/2022 06/16/2023 1 1 Specialty Diagnoses / Procedures Referred By Contac t Referred To Contact Cardiology Diagnoses Bilateral carotid artery stenosis Procedures Vascular US carotid artery duplex bilateral Kristy Doran, DEWATERER OPERATOR - WINDOWS TECHNICAL SPECIALIST [address] [facility] [place] [address] Referral ID Status Reason Start Date Expiration Date V isits Requested Visits Authorized [id number] Closed Perform Procedure 09/23/2022 03/22/2023 1 1 Referral ID Status Reason Start Date Expiration Date Visits Re quested Visits Authorized [id number] Closed 12/18/2022 06/16/2023 1 1 Referral ID Status Reason Start Date Expiration Date V isits Requested Visits Authorized [id number] Pending Review 04/22/2023 10/19/2023 1 1 Specialty Diagnoses / Procedures Referred By Contac t Referred To Contact Cardiology Diagnoses Bilateral carotid artery stenosis Procedures Vascular US carotid artery duplex bilateral Rashi Jerome MD [address] [facility] [place] [address] Referral ID Status Reason Start Date Expiration Date V isits Requested Visits Authorized [id number] Pending Review 05/07/2023 11/03/2023 1 1 Specialty Diagnoses / Procedures Referred By Contac t Referred To Contact Radiology Diagnoses Malignant neoplasm of left breast in female, estrogen receptor negative, unspecified site of breast (HCC) Lung nodules Procedures PET/CT skull base to mid thigh Keven Marcus MD [address] [facility] [address] [address] [place] [address] Referral ID Status Reason Start Date Expiration Date V isits Requested Visits Authorized [id number] Pending Review 08/26/2023 08/25/2024 1 1 Specialty Diagnoses / Procedures Referred By Contac t Referred To Contact Radiology Diagnoses Malignant neoplasm of left breast in female, estrogen receptor negative, unspecified site of breast (HCC) (HCC) Lung nodules Procedures PET/CT skull base to mid thigh Keven Marcus MD [address] [facility] [address] [place] [address] Referral ID Status Reason Start Date Expiration Date Visits Re quested Visits Authorized [id number] Closed 08/26/2023 08/25/2024 1 1 Specialty Diagnoses / Procedures Referred By Contac t Referred To Contact Pulmonology Diagnoses Tobacco use CRUZ (dyspnea on exertion) Procedures Complete PFT pre and post bronchodilator Natalia-Chavez, Stephanie, DO [address] [place] [id number] [address] [place] [address] Referral ID Status Reason Start Date Expiration Date V isits Requested Visits Authorized [id number] Authorized 09/29/2023 09/23/2024 1 1 Specialty Diagnoses / Procedures Referred By Contac t Referred To Contact Radiology Diagnoses Organizing pneumonia (CMS/HCC) (HCC) Pulmonary nodules Procedures CT chest wo IV contrast Natalia-Chavez, Stephanie, DO [address] [place] [id number] Referral ID Status Reason Start Date Expiration Date V isits Requested Visits Authorized [id number] Pending Review 10/13/2023 10/12/2024 1 1 Referral ID Status Reason Start Date Expiration Date Visits Re quested Visits Authorized [id number] Closed 09/29/2023 09/23/2024 1 1 Referral ID Status Reason Start Date Expiration Date Visits Re quested Visits Authorized [id number] Closed 10/13/2023 10/12/2024 1 1 Specialty Diagnoses / Procedures Referred By Contac t Referred To Contact Radiology Diagnoses Pulmonary nodules Procedures CT chest wo IV contrast Stephanie Arana, DO [address] [place] [address] Referral ID Status Reason Start Date Expiration Date V isits Requested Visits Authorized [id number] Pending Review 12/08/2023 12/07/2024 1 1 Specialty Diagnoses / Procedures Referred By Contac t Referred To Contact Radiology Diagnoses Left ankle swelling Procedures XR ankle left 3+ views Jerel Fraser, DO [address] [facility] [place] [address] Referral ID Status Reason Start Date Expiration Date Visits Requested Visits Authorized [id number] Authorized Perform Procedure 01/08/2024 01/07/2025 1 1 Specialty Diagnoses / Procedures Referred By Contac t Referred To Contact Diagnoses Dyspnea, unspecified type Procedures ECG 12 Lead Celia Al, DO [address] [facility] [place] [address] Referral ID Status Reason Start Date Expiration Date V isits Requested Visits Authorized [id number] Authorized 01/19/2024 01/18/2025 1 1 Specialty Diagnoses / Procedures Referred By Contac t Referred To Contact Cardiology Diagnoses PAF (paroxysmal atrial fibrillation) (HCC) Procedures Cardioversion external Kristy Doran, DEWATERER OPERATOR - WINDOWS TECHNICAL SPECIALIST [address] [facility] [place] [address] Referral ID Status Reason Start Date Expiration Date V isits Requested Visits Authorized [id number] Authorized 02/02/2024 01/27/2025 1 1 Specialty Diagnoses / Procedures Referred By Contac t Referred To Contact Radiology Diagnoses Malignant neoplasm of left breast in female, estrogen receptor negative, unspecified site of breast (HCC) Procedures CT chest wo IV contrast Keven Marcus MD [address] [place] [address] Referral ID Status Reason Start Date Expiration Date Visits Re quested Visits Authorized [id number] Closed 04/22/2023 10/19/2023 1 1 Referral ID Status Reason Start Date Expiration Date Visits Re quested Visits Authorized [id number] Closed 12/08/2023 12/07/2024 1 1 Specialty Diagnoses / Procedures Referred By Contac t Referred To Contact Cardiology Diagnoses Bilateral carotid artery stenosis Procedures Vascular US carotid artery duplex bilateral Rashi Jerome MD [address] [facility] [address] [place] [address] Referral ID Status Reason Start Date Expiration Date Visits Re quested Visits Authorized [id number] Closed 05/07/2023 11/03/2023 1 1 Specialty Diagnoses / Procedures Referred By Contac t Referred To Contact Radiology Diagnoses Organizing pneumonia (CMS/HCC) (HCC) History of tobacco use Pulmonary nodules Procedures CT chest wo IV contrast Stephanie Arana, DO 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) Essential hypertension Procedures Transthoracic echocardiogram (TTE) complete with contrast, bubble, strain, and 3D PRN DE ECHO TTHRC R-T 2D W/WOM-MODE COMPL SPEC&COLR D DE TTE W OR WO FOL WCON,DOPPLER Gi Mendoza, DEWATERER OPERATOR - WINDOWS TECHNICAL SPECIALIST [address] [facility] [address] [place] [address] Referral ID Status Reason Start Date Expiration Date V isits Requested Visits Authorized [id number] Authorized 06/01/2024 06/01/2025 1 1 Specialty Diagnoses / Procedures Referred By Contac t Referred To Contact Cardiology Diagnoses Syncope and collapse Palpitations Essential hypertension Procedures Transthoracic echocardiogram (TTE) complete with contrast, bubble, strain, and 3D PRN DE ECHO TTHRC R-T 2D W/WOM-MODE COMPL SPEC&COLR D DE TTE W OR WO PATRICIA ALEXIS Stephen A, MD [address] [facility] [place] [address] Referral ID Status Reason Start Date Expiration Date Visits Requested Visits Authorized [id number] Pending Review Perform Procedure 09/01/2022 02/28/2023 1 1 Specialty Diagnoses / Procedures Referred By Contac t Referred To Contact Cardiology Diagnoses Syncope and collapse Palpitations Essential hypertension Procedures Transthoracic echocardiogram (TTE) complete with contrast, bubble, strain, and 3D PRN DE ECHO TTHRC R-T 2D W/WOM-MODE COMPL SPEC&COLR D DE TTE W OR WO PATRICIA ALEXIS Stephen A, MD [address] [facility] [place] [address] [facility] [address] [place] [address] Referral ID Status Reason Start Date Expiration Date V isits Requested Visits Authorized [id number] Closed Perform Procedure 09/01/2022 02/28/2023 1 1 Referral ID Status Reason Start Date Expiration Date Visits Requested Visits Authorized [id number] Pending Review Perform Procedure 09/23/2022 03/22/2023 1 1 Referral ID Status Reason Start Date Expiration Date V isits Requested Visits Authorized [id number] Pending Review 03/11/2024 03/11/2025 1 1 Summary Purpose Chief Complaint physical exam.physical exam.* cough x 3-4 days, was more productive today. * An interactive audio and video telecommunication system which permits real time communications between the patient (at the originating site) and provider (at the distant site) was utilized to providethis telehealth service. * Verbal consent was requested and obtained from ROLANDO PETERS on this date, 11/29/2021 03:15 PM , fora telehealth visit. * Tested positive for COVID this morning, requesting Paxlovid, productive cough. * A telephone visit (audio only) between the patient (at the originating site) and the provider (at the distant site) was utilized to provide this telehealth service. * Cough with chest congestion, nasal drainage, left ear pain. X Thursday. Neg for covid. * An interactive audio and video telecommunication system which permits real time communications between the patient (at the originating site) and provider (at the distant site) was utilized to providethis telehealth service. * Verbal consent was requested and obtained from ROLANDO PETERS on this date, 07/14/2022 10:00 AM , fora telehealth visit. * Cough, nasal drainage, sore throat. X yesterday. Pos for covid today. * An interactive audio and video telecommunication system which permits real time communications between the patient (at the originating site) and provider (at the distant site) was utilized to providethis telehealth service. * Verbal consent was requested and obtained from ROLANDO PETERS on this date, 08/02/2022 10:00 AM , fora telehealth visit. Fainted inside grocery store [employer] in July. Also abnormal weight loss. Fainted inside grocery store [employer] in July. Also abnormal weight loss. Chief Complaint and Reason for Visit Chief Complaint Admit Date WOUND March 07, 2025 9:00 am PAD, toe ulcer March 08, 2025 12:5 3pm Reason for Visit Admit Date Other specified peripheral vascular dise ases March 07, 2025 9:00am Non-pressure chronic ulcer o f other part of right foot with fat layer exposed March 07, 2025 9:00am Other specified peripheral vascular dise ases March 08, 2025 12:53pm Non-pressure chronic ulcer o f other part of right foot with fat layer exposed March 08, 2025 12:53pm Additional Source Comments Source Comments (unrecognize d section and content) In the event this informatio n is protected by the Federal Confidentiality of Alcohol and Drug Abuse Patient Records regulations: The Federal rules restrict any use of the information to criminally investigate or prosecute any alcohol or drug abuse patient.[facility] the event this information is protected by the Federal Confidentiality of Alcohol and Drug Abuse Patient Records regulations: The Federal rules restrict any use of the information to criminally investigate or prosecute any alcohol or drug abuse patient.[facility] the event this information is protected by the Federal Confidentiality of Alcohol and Drug Abuse Patient Records regulations: The Federal rules restrict any use of the information to criminally investigate or prosecute any alcohol or drug abuse patient.[facility] the event this information is protected by the Federal Confidentiality of Alcohol and Drug Abuse Patient Records regulations: The Federal rules restrict any use of the information to criminally investigate or prosecute any alcohol or drug abuse patient.[facility] the event this information is protected by the Federal Confidentiality of Alcohol and Drug Abuse Patient Records regulations: The Federal rules restrict any use of the information to criminally investigate or prosecute any alcohol or drug abuse patient.[facility] CampusIn the event this information is protected by the Federal Confidentiality of Alcohol and Drug Abuse Patient Records regulations: The Federal rules restrict any use of the information to criminally investigate or prosecute any alcohol or drug abuse patient.[facility] CampusIn the event this information is protected by the Federal Confidentiality of Alcohol and Drug Abuse Patient Records regulations: The Federal rules restrict any use of the information to criminally investigate or prosecute any alcohol or drug abuse patient.[facility] CampusIn the event this information is protected by the Federal Confidentiality of Alcohol and Drug Abuse Patient Records regulations: The Federal rules restrict any use of the information to criminally investigate or prosecute any alcohol or drug abuse patient.[facility] CampusIn the event this information is protected by the Federal Confidentiality of Alcohol and Drug Abuse Patient Records regulations: The Federal rules restrict any use of the information to criminally investigate or prosecute any alcohol or drug abuse patient.[facility] CampusIn the event this information is protected by the Federal Confidentiality of Alcohol and Drug Abuse Patient Records regulations: The Federal rules restrict any use of the information to criminally investigate or prosecute any alcohol or drug abuse patient.[facility] CampusIn the event this information is protected by the Federal Confidentiality of Alcohol and Drug Abuse Patient Records regulations: The Federal rules restrict any use of the information to criminally investigate or prosecute any alcohol or drug abuse patient.[facility] CampusIn the event this information is protected by the Federal Confidentiality of Alcohol and Drug Abuse Patient Records regulations: The Federal rules restrict any use of the information to criminally investigate or prosecute any alcohol or drug abuse patient.[facility] CampusIn the event this information is protected by the Federal Confidentiality of Alcohol and Drug Abuse Patient Records regulations: The Federal rules restrict any use of the information to criminally investigate or prosecute any alcohol or drug abuse patient.[facility] CampusIn the event this information is protected by the Federal Confidentiality of Alcohol and Drug Abuse Patient Records regulations: The Federal rules restrict any use of the information to criminally investigate or prosecute any alcohol or drug abuse patient.[facility] CampusIn the event this information is protected by the Federal Confidentiality of Alcohol and Drug Abuse Patient Records regulations: The Federal rules restrict any use of the information to criminally investigate or prosecute any alcohol or drug abuse patient.[facility] CampusIn the event this information is protected by the Federal Confidentiality of Alcohol and Drug Abuse Patient Records regulations: The Federal rules restrict any use of the information to criminally investigate or prosecute any alcohol or drug abuse patient.[facility] CampusIn the event this information is protected by the Federal Confidentiality of Alcohol and Drug Abuse Patient Records regulations: The Federal rules restrict any use of the information to criminally investigate or prosecute any alcohol or drug abuse patient.[facility] CampusIn the event this information is protected by the Federal Confidentiality of Alcohol and Drug Abuse Patient Records regulations: The Federal rules restrict any use of the information to criminally investigate or prosecute any alcohol or drug abuse patient.[facility] CampusIn the event this information is protected by the Federal Confidentiality of Alcohol and Drug Abuse Patient Records regulations: The Federal rules restrict any use of the information to criminally investigate or prosecute any alcohol or drug abuse patient.[facility] CampusIn the event this information is protected by the Federal Confidentiality of Alcohol and Drug Abuse Patient Records regulations: The Federal rules restrict any use of the information to criminally investigate or prosecute any alcohol or drug abuse patient.[facility]In the event this information is protected by the Federal Confidentiality of Alcohol and Drug Abuse Patient Records regulations: The Federal rules restrict any use of the information to criminally investigate or prosecute any alcohol or drug abuse patient.[facility] CampusIn the event this information is protected by the Federal Confidentiality of Alcohol and Drug Abuse Patient Records regulations: The Federal rules restrict any use of the information to criminally investigate or prosecute any alcohol or drug abuse patient.[facility] Reason for Visit (unrecogniz ed section and content) Reason Comments Physical Therapy Specialty Diagnoses / Procedures Referred By Nacho galloway Referred To Contact PHYSICAL THERAPY Diagnoses Spinal stenosis of cervical region Spinal stenosis of lumbar region with neurogenic claudication Procedures CONSULT TO PHYSICAL THERAPY PHYSICAL THERAPY EVALUATION HIGH COMPLEX 45 MINS THERAPEUTIC EXERCISES RE, EA 15 MIN. Dominick Huggins MD [address] [facility] [place] [address] Phone: tel: fax: [facility] Physical Therapy [address] [place] [address] Phone: tel: fax: Referral ID Status Reason Start Date Expiration Date Visits Requested Visits Authorized [id number] Authorized Auto-Generat ed Referral 08/17/2024 08/16/2025 99 99 Reason Comments Diabetes Specialty Diagnoses / Procedures Referred By Nacho galloway Referred To Contact Pharmacy / Primary Care Diagnoses 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 with 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, without long-term current use of insulin (CMS/HCC) Procedures Follow Up In Advanced Primary Care - Pharmacy Celia Al, [address] [facility], [address] [place] [address] Referral ID Status Reason Start Date Expiration Date V isits Requested Visits Authorized [id number] Authorized 12/12/2022 06/10/2023 1 1 Specialty Diagnoses / Procedures Referred By Contac t Referred To Contact Radiology Diagnoses Malignant neoplasm of left breast in female, estrogen receptor negative, unspecified site of breast (HCC) 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 Weight loss Procedures NM bone whole body Keven Marcus MD [address] [place] [address] Referral ID Status Reason Start Date Expiration Date V isits Requested Visits Authorized [id number] Authorized 12/02/2022 05/31/2023 2 2 Specialty Diagnoses / Procedures Referred By Contac t Referred To Contact Radiology Diagnoses Malignant neoplasm of left breast in female, estrogen receptor negative, unspecified site of breast (HCC) 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 Weight loss Procedures CT chest abdomen pelvis with contrast Keven Marcus MD [address] [place] [address] Referral ID Status Reason Start Date Expiration Date Visits Re quested Visits Authorized [id number] Closed 12/02/2022 05/31/2023 1 1 Reason Comments Follow-up Reason Comments Med Refill Reason Onset Date Comments Cardiac Clearance 02/05/2023 Specialty Diagnoses / Procedures Referred By Contac t Referred To Contact Cardiology Diagnoses Bilateral carotid artery stenosis Procedures Vascular US carotid artery duplex bilateral Kristy Doran R, DEWATERER OPERATOR - WINDOWS TECHNICAL SPECIALIST [address] [facility] [place] [address] Referral ID Status Reason Start Date Expiration Date V isits Requested Visits Authorized [id number] Closed Perform Procedure 09/23/2022 03/22/2023 1 1 Reason Onset Date Comments Med Refill 04/01/2023 Specialty Diagnoses / Procedures Referred By Contac t Referred To Contact Radiology Diagnoses Malignant neoplasm of left breast in female, estrogen receptor negative, unspecified site of breast (HCC) Procedures CT chest wo IV contrast Keven Marcus MD [address] [place] [address] Referral ID Status Reason Start Date Expiration Date Visits Re quested Visits Authorized [id number] Closed 12/18/2022 06/16/2023 1 1 Reason Comments 6 Month Follow-up Reason Comments Right sciatic nerve pain. 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 Lung nodule . Specialty Diagnoses / Procedures Referred By [facility] Referred To Contact Pulmonology Diagnoses Malignant neoplasm of left breast in female, estrogen receptor negative, unspecified site of breast (HCC) (HCC) Lung nodules Procedures DE OFFICE/OUTPATIENT NEW HIGH MDM 60 MINUTES Keven Marcus MD [address] [facility] [address] [address] [place] [address] [facility] [address] [place] [address] Referral ID Status Reason Start Date Expiration Date Visits Requested Visits Authorized [id number] Pending Review Specialty Services Required 09/25/2023 09/24/2024 1 1 Reason Onset Date Comments Care Coordination 09/29/2023 Reason Comments Patient Update Future surgery Referral ID Status Reason Start Date Expiration Date V isits Requested Visits Authorized [id number] Closed Specialty Services Required 09/25/2023 09/24/2024 1 1 Specialty Diagnoses / Procedures Referred By [facility] Referred To Contact Diagnoses Other nonspecific abnormal finding of lung field Other nonspecific abnormal finding of lung field [R91.8] Procedures DE BRONCHOSCOPY W/CPTR-ASST IMAGE-GUIDED NAVIGATION DE BRNSCHSC TNDSC EBUS DX/TX INTERVENTION PERPH LES ELECTROMAGNETIC NAVIGATIONAL BRONCHOSCOPY, : ENDOBRONCHIAL ULTRASOUND BRONCHOSCOPY WITH X-RAY ENB/EBUS [facility], Stephanie, DO [address] [address] [facility] End[facility] [address] [place] [address] Referral ID Status Reason Start Date Expiration Date Visits Re quested Visits Authorized [id number] 1 1 Reason Comments Sinusitis Ear pain, drainage, facial pain X yesterday Reason Comments Results Specialty Diagnoses / Procedures [facility] Referred To Contact Pulmonology Diagnoses Tobacco use CRUZ (dyspnea on exertion) Procedures Complete PFT pre and post bronchodilator [facility], [place], DO [address] [address] [address] [place] [address] Referral ID Status Reason Start Date Expiration Date Visits Re quested Visits Authorized [id number] Closed 09/29/2023 09/23/2024 1 1 Reason Onset Date Comments Results 10/30/2023 Specialty Diagnoses / Procedures [facility] Referred To Contact Radiology Diagnoses Organizing pneumonia (CMS/HCC) (HCC) Pulmonary nodules Procedures CT chest wo IV contrast [facility], Stephanie, DO [address] [address] Referral ID Status Reason Start Date Expiration Date Visits Re quested Visits Authorized [id number] Closed 10/13/2023 10/12/2024 1 1 Reason Comments Follow-up CT-RESULTS /MULTIPLE LUNG NODULESHx Of INGA Reason Onset Date Comments Care Coordination 12/11/2023 Reason Onset Date Comments Med Refill 01/08/2024 Specialty Diagnoses / Procedures [facility] Referred To Contact Radiology Diagnoses Left ankle swelling Procedures XR ankle left 3+ views Jerel Fraser, DO [address] [facility], [address] [place] [address] Referral ID Status Reason Start Date Expiration Date Visits Requested Visits Authorized [id number] Authorized Perform Procedure 01/08/2024 01/07/2025 1 1 Reason Comments patient complains of getting tired very easy Feels like canker sores on the left si de of tongue. Abdominal Pain States that the pain is mainly in the morning; right side Specialty Diagnoses / Procedures Referred By Contac t Referred To Contact Diagnoses Dyspnea, unspecified type Procedures ECG 12 Lead Celia Al DO [address] [facility], [address] [place] [address] Referral ID Status Reason Start Date Expiration Date V isits Requested Visits Authorized [id number] Authorized 01/19/2024 01/18/2025 1 1 Reason Comments Weakness, Gen Pt brought in by EMS from Dr. Richards. Pt states having weakness and shortness of breath for past 2-3weeks. EMS states they did an EKG and found that pt is in Afib with RVR 120 to 150 beats a min. Pt states on and off chest pain. Chest Pain Specialty Diagnoses / Procedures Referred By Contac t Referred To Contact Diagnoses Atrial fibrillation with RVR (HCC) Acute heart failure, unspecified heart failure type (HCC) Procedures . Manjit Ramirez MD [address] [place] [address] [address] [place] [address] Referral ID Status Reason Start Date Expiration Date Visits Re quested Visits Authorized [id number] 1 1 Reason Comments Joint Swelling X 1 week Reason Comments Hospital Follow-up Atrial Fibrillation Congestive Heart Failure Reason Onset Date Comments Sample Request 02/01/2024 Reason Onset Date Comments Procedure 02/02/2024 Schedule DCC Specialty Diagnoses / Procedures Referred By Contac t Referred To Contact Radiology Diagnoses Malignant neoplasm of left breast in female, estrogen receptor negative, unspecified site of breast (HCC) Procedures CT chest wo IV contrast Keven Marcus MD [address] [facility] [address] [place] [address] Referral ID Status Reason Start Date Expiration Date Visits Re quested Visits Authorized [id number] Closed 04/22/2023 10/19/2023 1 1 Reason Comments Diabetes COPD Specialty Diagnoses / Procedures Referred By Contac t Referred To Contact Pharmacy / Primary Care Diagnoses Atrial fibrillation, unspecified type (Multi) Procedures Follow Up In Advanced Primary Care - Pharmacy ServandoCelia Christi, DO [address] [facility], [address] [place] [address] Referral ID Status Reason Start Date Expiration Date V isits Requested Visits Authorized [id number] Authorized 01/29/2024 01/28/2025 1 1 Reason Comments [facility] Follow up. Reason Comments Atrial Fibrillation Reason Onset Date Comments Med Refill 02/05/2024 Reason Onset Date Comments Other 02/22/2024 Update on low BP dizziness Med Refill 02/22/2024 Losartan 50 mg Specialty Diagnoses / Procedures Referred By Contac t Referred To Contact Radiology Diagnoses Pulmonary nodules Procedures CT chest wo IV contrast Stephanie Arana, DO [address] [place] [address] Referral ID Status Reason Start Date Expiration Date Visits Re quested Visits Authorized [id number] Closed 12/08/2023 12/07/2024 1 1 Reason Onset Date Comments Other 02/26/2024 message Reason Onset Date Comments Other 03/04/2024 Message Reason Onset Date Comments Med Refill 03/25/2024 Reason Onset Date Comments Med Refill 04/01/2024 Reason Comments New Patient Paroxysmal Atrial Fi b Specialty Diagnoses / Procedures Referred By Contac t Referred To Contact Cardiology Diagnoses PAF (paroxysmal atrial fibrillation) (HCC) Procedures DE OFFICE/OUTPATIENT NEW HIGH MDM 60 MINUTES Kristy Doran R, DEWATERER OPERATOR - WINDOWS TECHNICAL SPECIALIST [address] [facility] [place] [address] [facility] [place] [address] [place] [address] Referral ID Status Reason Start Date Expiration Date V isits Requested Visits Authorized [id number] Closed Specialty Services Required 02/01/2024 01/31/2025 1 1 Specialty Diagnoses / Procedures Referred By Jose Alfredoac t Referred To Contact Cardiology Diagnoses Bilateral carotid artery stenosis Procedures Vascular US carotid artery duplex bilateral Rashi Jerome MD [address] [facility] [address] [place] [address] Referral ID Status Reason Start Date Expiration Date Visits Re quested Visits Authorized [id number] Closed 05/07/2023 11/03/2023 1 1 Reason Onset Date Comments Procedure 04/15/2024 Instructions for PVI Ablation Specialty Diagnoses / Procedures Referred By Jose Alfredoac t Referred To Contact Diagnoses Persistent atrial fibrillation (HCC) Persistent atrial fibrillation (HCC) [I48.19] Procedures Ablation atrial fibrillation Walt Leigh MD [address] [place] [address] [facility] Cardiac Cath/Ep Lab [address] [place] [address] Referral ID Status Reason Start Date Expiration Date Visits Re quested Visits Authorized [id number] 1 1 Reason Onset Date Comments Other 05/06/2024 Post procedure s ymptoms Reason Onset Date Comments Other 05/09/2024 Reason Onset Date Comments Other 05/12/2024 Knot at ablation site Specialty Diagnoses / Procedures Referred By Nacho t Referred To Contact Sleep Medicine Diagnoses PAF (paroxysmal atrial fibrillation) (HCC) Chronic systolic heart failure (HCC) INGA (obstructive sleep apnea) Procedures Home sleep test Kristy Doran, DEWATERER OPERATOR - WINDOWS TECHNICAL SPECIALIST [address] [facility] [place] [address] [facility] Sleep Lab [address] [place] [address] Referral ID Status Reason Start Date Expiration Date Visits Re quested Visits Authorized [id number] Closed 02/01/2024 01/26/2025 1 1 Specialty Diagnoses / Procedures Referred By Nacho t Referred To Contact Radiology Diagnoses Organizing pneumonia (CMS/HCC) (HCC) History of tobacco use Pulmonary nodules Procedures CT chest wo IV contrast Stephanie Arana DO [address] [facility] [address] Referral ID Status Reason Start Date Expiration Date Visits Re quested Visits Authorized [id number] Closed 03/11/2024 03/11/2025 1 1 Reason Comments 1 Month Follow Up Reason Onset Date Comments Other 06/01/2024 Bp Reason Comments Lung Nodule Reason Onset Date Comments Other 07/25/2024 DME Order via [facility] Reason Comments Medicare Annual Wellness Visit Moeen t Reason Comments Neck Pain Right shoulder pain Specialty Diagnoses / Procedures Referred By Nacho galloway Referred To Contact Diagnoses Syncope and collapse Palpitations Essential (primary) hypertension Procedures DE ECHO TTHRC R-T 2D W/WOM-MODE COMPL SPEC&COLR D DE TTE W OR WO FOL WCON,DOPPLER [facility] Non-Invasive Cardiology [address] [place] [address] Referral ID Status Reason Start Date Expiration Date Visits Re quested Visits Authorized [id number] 1 1 Reason Onset Date Comments Labs Only 09/23/2022 Reason Onset Date Comments Results 08/02/2024 Reason Comments Follow-up Lung Nodule 3-MONTH APPT-INGA Reason Onset Date Comments OTHER 02/04/2024 Reason Comments Follow-up 2 Month Reason Comments Follow-up Ct chest Reason Comments To discuss hair loss. Shortness of Breath X 4:00 am Specialty Diagnoses / Procedures Referred By Nacho galloway Referred To Contact Diagnoses Chest pain, unspecified type Dyspnea, unspecified type Persistent atrial fibrillation (Multi) Procedures ECG 12 Lead Celia Al, DO [address] [facility] [address] [place] [address] Phone: tel: fax: Referral ID Status Reason Start Date Expiration Date V isits Requested Visits Authorized [id number] Authorized 08/26/2024 08/26/2025 1 1 Reason Comments Chest Pain Pt presents to er fr om doctors office for chest pain, back pain and sob. Pt states chest pain is gone now but still has sob on exertion. Specialty Diagnoses / Procedures Referred By Nacho galloway Referred To Contact Diagnoses Exertional shortness of breath Procedures - Reginald Garza, DO [address] [place] [address] Phone: tel: fax: [facility] ED [address] [place] [address] Phone: tel: Referral ID Status Reason Start Date Expiration Date Visits Re quested Visits Authorized [id number] 1 1 Reason Onset Date Comments Hospital Follow-up 08/30/2024 Reason Onset Date Comments Care Coordination 08/29/2024 ED Nuance Lung Nodule Reason Comments Results Reason Onset Date Comments Care Coordination 09/08/2024 Reason Comments Hospital Follow-up CHF Reason Comments Hospital Follow-up Reason Onset Date Comments Prior Authorization 09/16/[address] Reason Onset Date Comments Results 09/19/2024 Labs and hold La six 2 days Reason Comments Cough With chest congestio n, nasal drainage, low grade temp 99.3. X Thursday evening. Neg for covid yesterday. Reason Onset Date Comments Med Refill 10/05/2024 Reason Comments Fatigue Leg weakness, low st lise. X Testing positive for influenza A 3 weeks ago. Lingering cough with congestion. Reason Comments Weakness, Gen PT presents to ED fo r leg weakness since mid September that began after getting Flu-A. Pt states she feel like her legs give out when she tries to walk. Pt denies falls/injury to back but reports hx of back problems. Pt also states her butt feels weak. Denies decreased sensation or loss of bowel or bladder. Pt also reports hx HF. Pt endorses persistent cough since having flu. Reason Comments Follow-up Ct Reason Onset Date Comments Med Management 11/07/2024 Reason Comments Palpitations Shortness of Breath Reason Comments Abnormal Lab Pt comes in due to h aving her pcp call her and send her in after having blood work drawn up and was told her hemoglobin has dropped to 7 now from 10. Pt is alert and oriented vitals taken In triage Specialty Diagnoses / Procedures Referred By Nacho t Referred To Contact Diagnoses Chronic anticoagulation Symptomatic anemia Procedures Z79.01 Nel Toledo MD [address] [place] [address] Phone: tel: fax: [facility] Cardiac Progressive Care Unit PCU [address] [place] [address] Phone: tel: Referral ID Status Reason Start Date Expiration Date Visits Re quested Visits Authorized [id number] 1 1 Reason Onset Date Comments Hospital Follow-up 11/14/2024 Reason Onset Date Comments Other 11/15/2024 Scheduling/Auth info Reason Comments [facility] Follow up Specialty Diagnoses / Procedures Referred By Nacho galloway Referred To Contact Diagnoses B12 deficiency Celia Al, DO [address] [facility] [address] [place] [address] Phone: tel: fax: Referral ID Status Reason Start Date Expiration Date V isits Requested Visits Authorized [id number] Pending Review 11/18/2024 11/18/2025 1 1 Reason Onset Date Comments Other 11/19/2024 Page out for Cri tical Labs [facility] stating paged 2x on 4.5 and never heard back Reason Onset Date Comments Abnormal Lab 11/19/2024 Reason Comments Medicare Annual Wellness Visit Shaw galloway Reason Onset Date Comments Med Refill 11/29/2024 Reason Onset Date Comments Prior Authorization 10/27/2024 Reason Onset Date Comments Other 11/24/2024 Central scheduli ng Reason Comments Atrial Fibrillation Diabetes Shortness of Breath Chronic Kidney Disease Specialty Diagnoses / Procedures Referred By Nacho galloway Referred To Contact Pharmacy Diagnoses Atrial fibrillation, unspecified type (Multi) 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 without complication, with long-term current use of insulin 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 Al with a reported hgb of 6.1. Patient also reports 1 episode of blood in her stool a few days ago. Denies abd pain. Reason Comments Follow-up Right foot great toe redness. Reason Comments Established Patient Reason Comments Preparations For Surgery Reason Comments Returning Patient's Call Reason Onset Date Comments Refill Request 02/14/2025 Reason Comments PT Eval Reason Comments Follow up right foot. Foot is still red and swollen. Finished antibiotic Thursday. Reason Onset Date Comments Med Management 03/09/2025 Reason Comments Established Patient INFORMATION SOURCE (unrecogn ized section and content) DATE CREATED AUTHOR 09/30/2021 [facility] [place] DATE CREATED AUTHOR AUTHOR'S ORGANIZ ATION 01/02/2022 [facility] DATE CREATED AUTHOR AUTHOR'S ORGANIZ ATION 05/17/2022 [facility] DATE CREATED AUTHOR AUTHOR'S ORGANIZ ATION 08/30/2022 [facility] DATE CREATED AUTHOR AUTHOR'S ORGANIZ ATION 11/21/2022 [facility] DATE CREATED AUTHOR AUTHOR'S ORGANIZ ATION 02/19/2023 [facility] DATE CREATED AUTHOR AUTHOR'S ORGANIZ ATION 09/04/2023 [facility] DATE CREATED AUTHOR AUTHOR'S ORGANIZ ATION 10/18/2024 [facility] DATE CREATED AUTHOR AUTHOR'S ORGANIZ ATION 11/08/2024 [facility] DATE CREATED AUTHOR AUTHOR'S ORGANIZ ATION 12/26/2024 [facility] DATE CREATED AUTHOR AUTHOR'S ORGANIZ ATION 02/25/2025 [facility] DATE CREATED AUTHOR AUTHOR'S ORGANIZ ATION 03/10/2025 [facility] DATE CREATED AUTHOR AUTHOR'S ORGANIZ ATION 03/10/2025 [facility] DATE CREATED AUTHOR AUTHOR'S ORGANIZ ATION 03/10/2025 [facility] DATE CREATED AUTHOR AUTHOR'S ORGANIZ ATION 03/11/2025 [facility] DATE CREATED AUTHOR AUTHOR'S ORGANIZ ATION 03/11/2025 [facility] Care Teams (unrecognized sec tion and content) Hot Tamale Worker Relationship Specialty Start Date End Date Celia Al DO [address] [facility], [address] [place] [address] PCP - General 09/25/15 Hot Tamale Worker Relationship Specialty Start Date End Date Celia Al DO [address] [facility], [address] [place] [address] PCP - General 09/25/15 Hot Tamale Worker Relationship Specialty Start Date End Date Celia AlDO [address] [place] [address], [address] [place] [address] PCP - General 09/24/15 Celia AlDO [address] [place] [address], [address] [place] [address] PCP - [employer] PCP 08/17/21 Rashi Jerome MD [address] [place] [address] [facility] [address] [place] [address] Referring Physician Cardiology 11/04/22 Hot Tamale Worker Relationship Specialty Start Date End Date Celia Al DO [address] [facility], [address] [place] [address] PCP - General 09/25/15 Keven Marcus MD [address] [place], [place] [id number] Consulting Physician Hematology and Oncology 12/02/22 Hot Tamale Worker Relationship Specialty Start Date End Date Celia Al DO [address] [facility], [address] [place] [address] PCP - General 09/25/15 Keven Marcus MD [address] [place], [place] [id number] Consulting Physician Hematology and Oncology 12/02/22 Hot Tamale Worker Relationship Specialty Start Date End Date Celia Al DO [address] [facility], [address] [place] [address] PCP - General 09/25/15 Keven Marcus MD [address] [place] [address] Consulting Physician Hematology and Oncology 12/02/22 Hot Tamale Worker Relationship Specialty Start Date End Date Celia Al DO [address] [facility], [address] [place] [address] PCP - General 09/25/15 Keven Marcus MD [address] [place] [address] Consulting Physician Hematology and Oncology 12/02/22 Hot Tamale Worker Relationship Specialty Start Date End Date Celia Al DO [address] [facility], [address] [place] [address] PCP - General 09/25/15 Keven Marcus MD [address] [place] [address] Consulting Physician Hematology and Oncology 12/02/22 Hot Tamale Worker Relationship Specialty Start Date End Date Celia Al DO [address] [facility], [address] [place] [address] PCP - General 09/25/15 Keven Marcus MD [address] [place] [address] Consulting Physician Hematology and Oncology 12/02/22 Hot Tamale Worker Relationship Specialty Start Date End Date Celia Al DO [address] [facility], [address] [place] [address] PCP - General 09/25/15 Keven Marcus MD [address] [place] [address] Consulting Physician Hematology and Oncology 12/02/22 Hot Tamale Worker Relationship Specialty Start Date End Date Celia Al DO [address] [facility], [address] [place] [address] PCP - General 09/24/15 Celia Al DO [address] [facility], [address] [place] [address] PCP - [employer]age PCP 08/17/21 Rashi Jerome MD [address] [place] [address] [facility] [address] [place] [address] Referring Physician Cardiology 11/04/22 Hot Tamale Worker Relationship Specialty Start Date End Date Celia Al DO [address] [facility], [address] [place] [address] PCP - General 09/25/15 Keven Marcus MD [address] [place] [address] Consulting Physician Hematology and Oncology 12/02/22 Hot Tamale Worker Relationship Specialty Start Date End Date Celia Al DO [address] [facility], [address] [place] [address] PCP - General 09/24/15 Celia Al DO [address] [facility], [address] [place] [address] PCP - [facility] Medicare Advantage PCP 08/17/21 Rashi Jerome MD [address] [place] [address] [facility] [address] [place] [address] Referring Physician Cardiology 11/04/22 Hot Tamale Worker Relationship Specialty Start Date End Date Celia Al DO [address] [facility], [address] [place] [address] PCP - General 09/25/15 Keven Marcus MD [address] [facility] [address] [place] [address] Consulting Physician Hematology and Oncology 12/02/22 Hot Tamale Worker Relationship Specialty Start Date End Date Celia Al DO [address] [facility], [address] [place] [address] PCP - General 09/25/15 Keven Marcus MD [address] [place] [address] Consulting Physician Hematology and Oncology 12/02/22 Hot Tamale Worker Relationship Specialty Start Date End Date Celia Al DO [address] [facility], [address] [place] [address] PCP - General 09/25/15 Keven Marcus MD [address] [place] [address] Consulting Physician Hematology and Oncology 12/02/22 Hot Tamale Worker Relationship Specialty Start Date End Date Celia Al DO [address] [facility], [address] [place] [address] PCP - General 09/25/15 Keven Marcus MD [address] [place] [address] Consulting Physician Hematology and Oncology 12/02/22 Hot Tamale Worker Relationship Specialty Start Date End Date Celia Al DO [address] [facility], [address] [place] [address] PCP - General 09/25/15 Keven Marcus MD [address] [place] [address] Consulting Physician Hematology and Oncology 12/02/22 Hot Tamale Worker Relationship Specialty Start Date End Date Celia Al DO [address] [facility], [address] [place] [address] PCP - General 09/25/15 Keven Marcus MD [address] [place] [address] Consulting Physician Hematology and Oncology 12/02/22 Hot Tamale Worker Relationship Specialty Start Date End Date Celia Al DO [address] [facility], [address] [place] [address] PCP - General 09/25/15 Keven Marcus MD [address] [place] [address] Consulting Physician Hematology and Oncology 12/02/22 Hot Tamale Worker Relationship Specialty Start Date End Date Celia Al DO [address] [facility], [address] [place] [address] PCP - General 09/25/15 Keven Marcus MD [address] [place] [address] Consulting Physician Hematology and Oncology 12/02/22 Hot Tamale Worker Relationship Specialty Start Date End Date Celia Al DO [address] [facility], [address] [place] [address] PCP - General 09/25/15 Keven Marcus MD [address] [place] [address] Consulting Physician Hematology and Oncology 12/02/22 Hot Tamale Worker Relationship Specialty Start Date End Date Celia Al DO [address] [facility], [address] [place] [address] PCP - General 09/24/15 Celia Al DO [address] [facility], [address] [place] [address] PCP - [facility] Medicare Advantage PCP 08/17/21 Rashi Jerome MD [address] [facility] [address] [place] [address] Referring Physician Cardiology 11/04/22 Hot Tamale Worker Relationship Specialty Start Date End Date Celia Al DO [address] [facility], [address] [place] [address] PCP - General 09/25/15 Keven Marcus MD [address] [facility] [address] [place] [address] Consulting Physician Hematology and Oncology 12/02/22 Hot Tamale Worker Relationship Specialty Start Date End Date Celia Al DO [address] [facility], [address] [place] [address] PCP - General 09/24/15 Celia Al DO [address] [facility], [address] [place] [address] PCP - [facility] Medicare Advantage PCP 08/17/21 Rashi Jerome MD [address] [facility] [address] [place] [address] Referring Physician Cardiology 11/04/22 Hot Tamale Worker Relationship Specialty Start Date End Date Celia Al DO [address] [facility] [address] [place] [address] PCP - General 09/25/15 Keven Marcus MD [address] [place] [address] Consulting Physician Hematology and Oncology 12/02/22 Hot Tamale Worker Relationship Specialty Start Date End Date Celia Al DO [address] [facility], [address] [place] [address] PCP - General 09/25/15 Keven Marcus MD [address] [place] [address] Consulting Physician Hematology and Oncology 12/02/22 Hot Tamale Worker Relationship Specialty Start Date End Date Celia Al DO [address] [facility], [address] [place] [address] PCP - General 09/25/15 Keven Marcus MD [address] [place] [address] Consulting Physician Hematology and Oncology 12/02/22 Hot Tamale Worker Relationship Specialty Start Date End Date Celia Al DO [address] [facility], [address] [place] [address] PCP - General 09/25/15 Keven Marcus MD [address] [place] [address] Consulting Physician Hematology and Oncology 12/02/22 Hot Tamale Worker Relationship Specialty Start Date End Date Celia Al DO [address] [facility], [address] [place] [address] PCP - General 09/25/15 Keven Marcus MD [address] [facility] [address] [place] [address] Consulting Physician Hematology and Oncology 12/02/22 Hot Tamale Worker Relationship Specialty Start Date End Date Celia Al DO [address] [facility], [address] [place] [address] PCP - General 09/25/15 Keven Marcus MD [address] [facility] [address] [place] [address] Consulting Physician Hematology and Oncology 12/02/22 Hot Tamale Worker Relationship Specialty Start Date End Date Celia Al DO [address] [facility], [address] [place] [address] PCP - General 09/24/15 Celia Al DO [address] [facility], [address] [place] [address] PCP - [employer] Ad[employer]age PCP 08/17/21 Rashi Jerome MD [address] [place] [address] [address] [place] [address] Referring Physician Cardiology 11/04/22 Samuel Cochran MD [address] [place] [address] Referring Physician Gastroenterology 11/24/23 Hot Tamale Worker Relationship Specialty Start Date End Date Celia Al DO [address] [facility], [address] [place] [address] PCP - General 09/24/15 Celia Al DO [address] [facility], [address] [place] [address] PCP - [employer] Advantage PCP 08/17/21 Rashi Jerome MD [address] [place] [address] [address] [place] [address] Referring Physician Cardiology 11/04/22 Samuel Cochran MD [address] [place] [address] Referring Physician Gastroenterology 11/24/23 Hot Tamale Worker Relationship Specialty Start Date End Date Celia Al DO [address] [facility], [address] [place] [address] PCP - General 09/25/15 Keven Marcus MD [address] [facility] [address] [place] [address] Consulting Physician Hematology and Oncology 12/02/22 Hot Tamale Worker Relationship Specialty Start Date End Date Celia Al DO [address] [facility], [address] [place] [address] PCP - General 09/24/15 Celia Al DO [address] [facility], [address] [place] [address] PCP - [facility] Medicare Advantage PCP 08/17/21 Rashi Jerome MD [address] [place] [address] [address] [place] [address] Referring Physician Cardiology 11/04/22 Samuel Cochran MD [address] [place], [place] [address] Referring Physician Gastroenterology 11/24/23 Hot Tamale Worker Relationship Specialty Start Date End Date Celia Al DO [address] [facility], [address] [place] [address] PCP - General 09/25/15 Keven Marcus MD [address] [facility] [address] [place] [address] Consulting Physician Hematology and Oncology 12/02/22 Hot Tamale Worker Relationship Specialty Start Date End Date Celia Al DO [address] [facility], [address] [place] [address] PCP - General 09/25/15 Keven Marcus MD [address] [facility] [address] [place] [address] Consulting Physician Hematology and Oncology 12/02/22 Hot Tamale Worker Relationship Specialty Start Date End Date Celia Al DO [address] [facility], [address] [place] [address] PCP - General 09/25/15 Keven Marcus MD [address] [place] [address] Consulting Physician Hematology and Oncology 12/02/22 Hot Tamale Worker Relationship Specialty Start Date End Date Celia Al DO [address] [facility], [address] [place] [address] PCP - General 09/25/15 Keven Marcus MD [address] [place] [address] Consulting Physician Hematology and Oncology 12/02/22 Hot Tamale Worker Relationship Specialty Start Date End Date Celia Al DO [address] [facility], [address] [place] [address] PCP - General 09/25/15 Keven Marcus MD [address] [place] [address] Consulting Physician Hematology and Oncology 12/02/22 Hot Tamale Worker Relationship Specialty Start Date End Date Celia Al DO [address] [facility], [address] [place] [address] PCP - General 09/24/15 Celia Al DO [address] [facility], [address] [place] [address] PCP - [employer] Advantage PCP 08/17/21 Rashi Jerome MD [address] [facility] [address] [place] [address] Referring Physician Cardiology 11/04/22 Samuel Cochran MD [address] [facility] [address] [place], [place] [address] Referring Physician Gastroenterology 11/24/23 Juany Larsen, top closerBeauty Culture Teacher 01/20/24 Joe Flood, top closerBeauty Culture Teacher 01/25/24 Hot Tamale Worker Relationship Specialty Start Date End Date Celia Al DO [address] [facility], [address] [place] [address] PCP - General 09/24/15 Celia Al DO [address] [facility], [address] [place] [address] PCP - [employer] Advantage PCP 08/17/21 Rashi Jerome MD [address] [facility] [address] [place] [address] Referring Physician Cardiology 11/04/22 Samuel Cochran MD [address] [place], [place] [address] Referring Physician Gastroenterology 11/24/23 Juany Larsen, top closerBeauty Culture Teacher 01/20/24 Joe Flood, top closerBeauty Culture Teacher 01/25/24 Hot Tamale Worker Relationship Specialty Start Date End Date Cel[facility] Al DO [facility] [facility] [address] [place] [address] PCP - General 09/25/15 Keven Marcus MD [address] [place] [address] Consulting Physician Hematology and Oncology 12/02/22 Hot Tamale Worker Relationship Specialty Start Date End Date Celia Al DO [address] [facility], [address] [place] [address] PCP - General 09/25/15 Keven Marcus MD [address] [place] [address] Consulting Physician Hematology and Oncology 12/02/22 Hot Tamale Worker Relationship Specialty Start Date End Date Celia Al DO [address] [facility], [address] [place] [address] PCP - General 09/25/15 Keven Marcus MD [address] [place] [address] Consulting Physician Hematology and Oncology 12/02/22 Hot Tamale Worker Relationship Specialty Start Date End Date Celia Al DO [address] [facility], [address] [place] [address] PCP - General 09/25/15 Keven Marcus MD [address] [place] [address] Consulting Physician Hematology and Oncology 12/02/22 Hot Tamale Worker Relationship Specialty Start Date End Date Servando CeliaDO [address] [facility], [address] [place] [address] PCP - General 09/25/15 Keven Marcus MD [address] [place] [address] Consulting Physician Hematology and Oncology 12/02/22 Hot Tamale Worker Relationship Specialty Start Date End Date Servando CeliaDO [address] [facility], [address] [place] [address] PCP - General 09/25/15 Keven Marcus MD [address] [place] [address] Consulting Physician Hematology and Oncology 12/02/22 Hot Tamale Worker Relationship Specialty Start Date End Date Servando CeliaDO [address] [facility], [address] [place] [address] PCP - General 09/25/15 Keven Marcus MD [address] [place] [address] Consulting Physician Hematology and Oncology 12/02/22 Hot Tamale Worker Relationship Specialty Start Date End Date Servando CeliaDO [address] [facility], [address] [place] [address] PCP - General 09/25/15 Keven Marcus MD [address] [place] [address] Consulting Physician Hematology and Oncology 12/02/22 Hot Tamale Worker Relationship Specialty Start Date End Date Servando Celia, DO [address] [facility], [address] [place] [address] PCP - General 09/25/15 Keven Marcus MD [address] [place] [address] Consulting Physician Hematology and Oncology 12/02/22 Hot Tamale Worker Relationship Specialty Start Date End Date Servando Celia, DO [address] [facility], [address] [place] [address] PCP - General 09/25/15 Keven Marcus MD [address] [place] [address] Consulting Physician Hematology and Oncology 12/02/22 Hot Tamale Worker Relationship Specialty Start Date End Date Servando Celia, DO [address] [facility], [address] [place] [address] PCP - General 09/25/15 Keven Marcus MD [address] [place] [address] Consulting Physician Hematology and Oncology 12/02/22 Hot Tamale Worker Relationship Specialty Start Date End Date Servando Celia, DO [address] [facility], [address] [place] [address] PCP - General 09/25/15 Keven Marcus MD [address] [place] [address] Consulting Physician Hematology and Oncology 12/02/22 Hot Tamale Worker Relationship Specialty Start Date End Date Celia Al DO [address] [facility], [address] [place] [address] PCP - General 09/25/15 Keven Marcus MD [address] [place] [address] Consulting Physician Hematology and Oncology 12/02/22 Hot Tamale Worker Relationship Specialty Start Date End Date Celia Al DO [address] [facility], [address] [place] [address] PCP - General 09/25/15 Keven Marcus MD [address] [place] [address] Consulting Physician Hematology and Oncology 12/02/22 Hot Tamale Worker Relationship Specialty Start Date End Date Celia Al DO [address] [facility], [address] [place] [address] PCP - General 09/25/15 Keven Marcus MD [address] [place] [address] Consulting Physician Hematology and Oncology 12/02/22 Hot Tamale Worker Relationship Specialty Start Date End Date Celia Al DO [address] [facility], [address] [place] [address] PCP - General 09/25/15 Keven Marcus MD [address] [place] [address] Consulting Physician Hematology and Oncology 12/02/22 Hot Tamale Worker Relationship Specialty Start Date End Date Celia Al DO [address] [facility], [address] [place] [address] PCP - General 09/25/15 Keven Marcus MD [address] [place] [address] Consulting Physician Hematology and Oncology 12/02/22 Hot Tamale Worker Relationship Specialty Start Date End Date Celia Al DO [address] [facility], [address] [place] [address] PCP - General 09/25/15 Keven Marcus MD [address] [place] [address] Consulting Physician Hematology and Oncology 12/02/22 Hot Tamale Worker Relationship Specialty Start Date End Date Celia Al DO [address] [facility], [address] [place] [address] PCP - General 09/25/15 Keven Marcus MD [address] [place] [address] Consulting Physician Hematology and Oncology 12/02/22 Hot Tamale Worker Relationship Specialty Start Date End Date AlCelia DO [address] [facility], [address] [place] [address] PCP - General 09/25/15 Keven Marcus MD [address] [place] [address] Consulting Physician Hematology and Oncology 12/02/22 Hot Tamale Worker Relationship Specialty Start Date End Date Celia Al DO [address] [facility], [address] [place] [address] PCP - General 09/25/15 Keven Marcus MD [address] [place] [address] Consulting Physician Hematology and Oncology 12/02/22 Hot Tamale Worker Relationship Specialty Start Date End Date Celia Al DO [address] [facility], [address] [place] [address] PCP - General 09/25/15 Keven Marcus MD [address] [place] [address] Consulting Physician Hematology and Oncology 12/02/22 Hot Tamale Worker Relationship Specialty Start Date End Date AlCeliaDO [address] [facility], [address] [place] [address] PCP - General 09/25/15 Keven Marcus MD [address] [place], [place] [address] Consulting Physician Hematology and Oncology 12/02/22 Hot Tamale Worker Relationship Specialty Start Date End Date Celia Al DO [address] [facility], [address] [place] [address] PCP - General 09/24/15 Celia Al DO [address] [facility], [address] [place] [address] PCP - [employer] Ad[employer]age PCP 08/17/21 Rashi Jerome MD [address] [place] [address] [facility] [address] [place] [address] Referring Physician Cardiology 11/04/22 Hot Tamale Worker Relationship Specialty Start Date End Date Celia Al DO [address] [facility], [address] [place] [address] PCP - General 09/24/15 Celia Al DO [address] [facility], [address] [place] [address] PCP - [employer]age PCP 08/17/21 Hot Tamale Worker Relationship Specialty Start Date End Date Celia Al DO [address] [facility], [address] [place] [address] PCP - General 09/25/15 Hot Tamale Worker Relationship Specialty Start Date End Date Celia Al DO [address] [facility], [address] [place] [address] PCP - General 09/25/15 Hot Tamale Worker Relationship Specialty Start Date End Date Celia Al DO [address] [facility], [address] [place] [address] PCP - General 09/25/15 Hot Tamale Worker Relationship Specialty Start Date End Date Celia Al DO [address] [facility], [address] [place] [address] PCP - General 09/25/15 Hot Tamale Worker Relationship Specialty Start Date End Date Celia Al DO [address] [facility], [address] [place] [address] PCP - General 09/25/15 Keven Marcus MD [address] [place], [place] [id number] Consulting Physician Hematology and Oncology 12/02/22 Hot Tamale Worker Relationship Specialty Start Date End Date Celia Al DO [address] [facility], [address] [place] [address] PCP - General 09/25/15 Keven Marcus MD [address] [place], [place] [id number] Consulting Physician Hematology and Oncology 12/02/22 Hot Tamale Worker Relationship Specialty Start Date End Date eClia Al DO [address] [facility], [address] [place] [address] PCP - General 09/25/15 Keven Marcus MD [address] [place], [place] [id number] Consulting Physician Hematology and Oncology 12/02/22 Hot Tamale Worker Relationship Specialty Start Date End Date Celia Al DO [address] [facility], [address] [place] [address] PCP - General 09/25/15 Keven Marcus MD [address] [place] [address] Consulting Physician Hematology and Oncology 12/02/22 Hot Tamale Worker Relationship Specialty Start Date End Date Celia Al DO [address] [facility], [address] [place] [address] PCP - General 09/25/15 Keven Marcus MD [address] [place] [address] Consulting Physician Hematology and Oncology 12/02/22 Hot Tamale Worker Relationship Specialty Start Date End Date Celia Al DO [address] [facility], [address] [place] [address] PCP - General 09/25/15 Keven Marcus MD [address] [place] [address] Consulting Physician Hematology and Oncology 12/02/22 Hot Tamale Worker Relationship Specialty Start Date End Date Celia Al DO [address] [facility], [address] [place] [address] PCP - General 09/24/15 Celia Al DO [address] [facility], [address] [place] [address] PCP - [facility] Medicare Advantage PCP 08/17/21 Rashi Jerome MD [address] [place] [address] [address] [place] [address] Referring Physician Cardiology 11/04/22 Samuel Cochran MD [address] [place], [place] [id number] Referring Physician Gastroenterology 11/24/23 Juany Larsen, top closerBeauty Culture Teacher 01/20/24 Jhoan Livingston MD [address] [place] [address] [address] [place] [phone] Sports Book Server Nephrology 02/11/24 Hot Tamale Worker Relationship Specialty Start Date End Date Celia Al DO [address] [facility], [address] [place] [address] PCP - General 09/25/15 Keven Marcus MD [address] [facility] [address] [place] [address] Consulting Physician Hematology and Oncology 12/02/22 Hot Tamale Worker Relationship Specialty Start Date End Date Celia Al DO [address] [facility], [address] [place] [address] PCP - General 09/25/15 Keven Marcus MD [address] [place] [address] Consulting Physician Hematology and Oncology 12/02/22 Hot Tamale Worker Relationship Specialty Start Date End Date Celia Al DO [address] [facility], [address] [place] [address] PCP - General 09/25/15 Keven Marcus MD [address] [place] [address] Consulting Physician Hematology and Oncology 12/02/22 Hot Tamale Worker Relationship Specialty Start Date End Date Celai Al DO [address] [facility], [address] [place] [address] PCP - General 09/25/15 Keven Marcus MD [address] [place], [place] [id number] Consulting Physician Hematology and Oncology 12/02/22 Hot Tamale Worker Relationship Specialty Start Date End Date Celia Al DO [address] [facility], [address] [place] [address] PCP - General 09/25/15 Keven Marcus MD [address] [place], [place] [id number] Consulting Physician Hematology and Oncology 12/02/22 Hot Tamale Worker Relationship Specialty Start Date End Date Celia Al DO [address] [facility], [address] [place] [address] PCP - General 09/24/15 Celia Al DO [address] [facility], [address] [place] [address] PCP - [facility] Medicare Advantage PCP 08/17/21 Rashi Jerome MD [address] [place] [address] [address] [place] [address] Referring Physician Cardiology 11/04/22 Samuel Cochran MD 570 [facility] [address] [place], [place] [address] Referring Physician Gastroenterology 11/24/23 Juany Larsen, top closerBeauty Culture Teacher 01/20/24 Jhoan Livingston MD [address] [place] [address] [address] [place] [phone] Sports Book Server Nephrology 02/11/24 Hot Tamale Worker Relationship Specialty Start Date End Date Celia Al DO [address] [facility], [address] [place] [address] PCP - General 09/25/15 Keven Marcus MD [address] [facility] [address] [place] [address] Consulting Physician Hematology and Oncology 12/02/22 Hot Tamale Worker Relationship Specialty Start Date End Date Celia Al DO [address] [facility], [address] [place] [address] PCP - General 09/25/15 Keven Marcus MD [address] [place] [address] Consulting Physician Hematology and Oncology 12/02/22 Hot Tamale Worker Relationship Specialty Start Date End Date Celia Al DO [address] [facility], [address] [place] [address] PCP - General 09/25/15 Keven Marcus MD [address] [facility] [address] [place] [address] Consulting Physician Hematology and Oncology 12/02/22 Hot Tamale Worker Relationship Specialty Start Date End Date Celia Al DO [address] [facility], [address] [place] [address] PCP - General 09/24/15 Celia Al DO [address] [facility], [address] [place] [address] PCP - [facility] Medicare Advantage PCP 08/17/21 Rashi Jerome MD [address] [place] [address] [address] [place] [address] Referring Physician Cardiology 11/04/22 Samuel Cochran MD [address] [place], [place] [address] Referring Physician Gastroenterology 11/24/23 Juany Larsen, top closerBeauty Culture Teacher 01/20/24 Jhoan Livingston MD [address] [place] [address] [address] [place] [phone] Sports Book Server Nephrology 02/11/24 Hot Tamale Worker Relationship Specialty Start Date End Date Celia Al DO [address] [facility], [address] [place] [address] PCP - General 09/25/15 Keven Marcus MD [address] [facility] [address] [place], [place] [phone] Consulting Physician Hematology and Oncology 12/02/22 Hot Tamale Worker Relationship Specialty Start Date End Date Celia Al DO [address] [facility], [address] [place] [address] PCP - General 09/24/15 Celia Al DO [address] [facility], [address] [place] [address] PCP - [facility] Medicare Advantage PCP 08/17/21 Rashi Jerome MD [address] [place] [address] [address] [place], [place] [id number] Referring Physician Cardiology 11/04/22 Samuel Cochran MD [address] [place], [place] [id number] Referring Physician Gastroenterology 11/24/23 Juany Larsen, top closerBeauty Culture Teacher 01/20/24 Jhoan Livingston MD 1 [facility] [address] [place] [address] Sports Book Server Nephrology 02/11/24 Hot Tamale Worker Relationship Specialty Start Date End Date Celia Al DO [address] [facility], [address] [place] [address] PCP - General 09/25/15 Keven Marcus MD [address] [facility] [address] [place], [place] [phone] Consulting Physician Hematology and Oncology 12/02/22 Hot Tamale Worker Relationship Specialty Start Date End Date Celia Al DO [address] [facility], [address] [place] [address] PCP - General 09/24/15 Celia Al DO [address] [facility], [address] [place] [address] PCP - [facility] Medicare Advantage PCP 08/17/21 Rashi Jerome MD [address] [place] [address] [address] [place] [address] Referring Physician Cardiology 11/04/22 Samuel Cochran MD [address] [place], [place] [address] Referring Physician Gastroenterology 11/24/23 Juany Larsen, top closerBeauty Culture Teacher 01/20/24 Jhoan Livingston MD [address] [place] [address] [address] [place] [address] Sports Book Server Nephrology 02/11/24 Hot Tamale Worker Relationship Specialty Start Date End Date Celia Al DO [address] [facility], [address] [place] [address] PCP - General 09/25/15 Keven Marcus MD [address] [place] [address] Consulting Physician Hematology and Oncology 12/02/22 Hot Tamale Worker Relationship Specialty Start Date End Date Celia Al DO [address] [facility], [address] [place] [address] PCP - General 09/25/15 Keven Marcus MD [address] [place] [address] Consulting Physician Hematology and Oncology 12/02/22 Hot Tamale Worker Relationship Specialty Start Date End Date Celia Al DO [address] [facility], [address] [place] [address] PCP - General 09/25/15 Keven Marcus MD [address] [place] [address] Consulting Physician Hematology and Oncology 12/02/22 Hot Tamale Worker Relationship Specialty Start Date End Date Celia Al DO [address] [facility], [address] [place] [address] PCP - General 09/25/15 Keven Marcus MD [address] [place] [address] Consulting Physician Hematology and Oncology 12/02/22 Hot Tamale Worker Relationship Specialty Start Date End Date Servando Celia [address] [facility], [address] [place] [address] PCP - General 09/25/15 Keven Marcus MD [address] [place] [address] Consulting Physician Hematology and Oncology 12/02/22 Hot Tamale Worker Relationship Specialty Start Date End Date Servando CeliaDO [address] [facility], [address] [place] [address] PCP - General 09/25/15 Keven Marcus MD [address] [place] [address] Consulting Physician Hematology and Oncology 12/02/22 Hot Tamale Worker Relationship Specialty Start Date End Date Servando CeliaDO [address] [facility], [address] [place] [address] PCP - General 09/25/15 Keven Marcus MD [address] [place] [address] Consulting Physician Hematology and Oncology 12/02/22 Hot Tamale Worker Relationship Specialty Start Date End Date Servando CeliaDO [address] [facility], [address] [place] [address] PCP - General 09/25/15 Keven Marcus MD [address] [facility] [address] [facility] [address] [place], [place] [phone] Consulting Physician Hematology and Oncology 12/02/22 Hot Tamale Worker Relationship Specialty Start Date End Date Celia Al DO [address] [facility], [address] [place] [address] PCP - General 09/24/15 Celia Al DO [address] [facility], [address] [place] [address] PCP - [facility] Medicare Advantage PCP 08/17/21 Rashi Jerome MD [address] [place] [address] [address] [place] [address] Referring Physician Cardiology 11/04/22 Samuel Cochran MD [address] [facility] [address] [place], [place] [address] Referring Physician Gastroenterology 11/24/23 Juany Larsen, top closerBeauty Culture Teacher 01/20/24 Jhoan Livingston MD [address] [place] [address] [address] [place] [phone] Sports Book Server Nephrology 02/11/24 Hot Tamale Worker Relationship Specialty Start Date End Date Celia Al DO [address] [facility], [address] [place] [address] PCP - General 09/25/15 Keven Marcus MD [address] [place] [address] Consulting Physician Hematology and Oncology 12/02/22 Hot Tamale Worker Relationship Specialty Start Date End Date Celia Al DO [address] [facility], [address] [place] [address] PCP - General 09/25/15 Keven Marcus MD [address] [facility] [address] [place] [address] Consulting Physician Hematology and Oncology 12/02/22 Hot Tamale Worker Relationship Specialty Start Date End Date Celia Al DO [address] [facility], [address] [place] [address] PCP - General 09/24/15 Celia Al DO [address] [facility], [address] [place] [address] PCP - [facility] Medicare Advantage PCP 08/17/21 Rashi Jerome MD [address] [place] [address] 100 [place] [address] Referring Physician Cardiology 11/04/22 Samuel Cochran MD [address] [place], [place] [address] Referring Physician Gastroenterology 11/24/23 Juany Larsen, top closerBeauty Culture Teacher 01/20/24 Jhoan Livingston MD [address] [place] [address] [address] [place] [phone] Sports Book Server Nephrology 02/11/24 Hot Tamale Worker Relationship Specialty Start Date End Date Celia Al DO [address] [facility], [address] [place] [address] PCP - General 09/25/15 Keven Marcus MD [address] [place] [address] Consulting Physician Hematology and Oncology 12/02/22 Hot Tamale Worker Relationship Specialty Start Date End Date Celia Al DO [address] [facility], [address] [place] [address] PCP - General 09/25/15 Keven Marcus MD [address] [place] [address] Consulting Physician Hematology and Oncology 12/02/22 Hot Tamale Worker Relationship Specialty Start Date End Date Celia Al DO [address] [facility], [address] [place] [address] PCP - General 09/25/15 Keven Marcus MD [address] [place] [address] Consulting Physician Hematology and Oncology 12/02/22 Hot Tamale Worker Relationship Specialty Start Date End Date Celia Al DO [address] [facility], [address] [place] [address] PCP - General 09/25/15 Keven Marcus MD [address] [place] [address] Consulting Physician Hematology and Oncology 12/02/22 Hot Tamale Worker Relationship Specialty Start Date End Date Celia Al DO [address] [facility], [address] [place] [address] PCP - General 09/25/15 Keven Marcus MD [address] [place] [address] Consulting Physician Hematology and Oncology 12/02/22 Hot Tamale Worker Relationship Specialty Start Date End Date Celia Al DO [address] [facility], [address] [place] [address] PCP - General 09/25/15 Keven Marcus MD [address] [place] [address] Consulting Physician Hematology and Oncology 12/02/22 Hot Tamale Worker Relationship Specialty Start Date End Date Celia Al DO [address] [facility], [address] [place] [address] PCP - General 09/24/15 Celia Al DO [address] [facility], [address] [place] [address] PCP - [employer] Medicare Advantage PCP 08/17/21 Rashi Jerome MD [address] [place] [address] [address] [place] [address] Referring Physician Cardiology 11/04/22 Samuel Cochran MD [address] [facility] [address] [place] [address] Referring Physician Gastroenterology 11/24/23 Juany Larsen, top closerBeauty Culture Teacher 01/20/24 Jhoan Livingston MD 1 [facility] [address] [place] [phone] Sports Book Server Nephrology 02/11/24 Hot Tamale Worker Relationship Specialty Start Date End Date Celia Al DO [address] [facility], [address] [place] [address] PCP - General 09/25/15 Keven Marcus MD [address] [facility] [address] [place], [place] [id number] Consulting Physician Hematology and Oncology 12/02/22 Hot Tamale Worker Relationship Specialty Start Date End Date Celia Al DO [address] [facility], [address] [place] [address] PCP - General 09/25/15 Keven Marcus MD [address] [facility] [address] [place], [place] [id number] Consulting Physician Hematology and Oncology 12/02/22 Hot Tamale Worker Relationship Specialty Start Date End Date Celia Al DO [address] [facility], [address] [place] [address] PCP - General 09/25/15 Keven Marcus MD [address] [place] [address] Consulting Physician Hematology and Oncology 12/02/22 Hot Tamale Worker Relationship Specialty Start Date End Date Celia Al DO [address] [facility], [address] [place] [address] PCP - General 09/25/15 Keven Marcus MD [address] [place] [address] Consulting Physician Hematology and Oncology 12/02/22 Hot Tamale Worker Relationship Specialty Start Date End Date Celia Al DO [address] [facility], [address] [place] [address] PCP - General 09/25/15 Keven Marcus MD [address] [place] [address] Consulting Physician Hematology and Oncology 12/02/22 Hot Tamale Worker Relationship Specialty Start Date End Date Celia Al DO [address] [facility], [address] [place] [address] PCP - General 09/24/15 Celia Al DO [address] [facility], [address] [place] [address] PCP - [employer] Medicare Advantage PCP 08/17/21 Rashi Jerome MD [address] [place] [address] [address] [place] [address] Referring Physician Cardiology 11/04/22 Samuel Cochran MD [address] [place], [place] [address] Referring Physician Gastroenterology 11/24/23 Juany Larsen, top closerBeauty Culture Teacher 01/20/24 Jhoan Livingston MD 1 [facility] [address] [place] [phone] Sports Book Server Nephrology 02/11/24 Hot Tamale Worker Relationship Specialty Start Date End Date Celia Al DO [address] [facility], [address] [place], [place] [address] PCP - General 09/25/15 Keven Marcus MD [address] [facility] [address] [place], [place] [phone] Consulting Physician Hematology and Oncology 12/02/22 Hot Tamale Worker Relationship Specialty Start Date End Date Celia Al [address] [place], [place] [address] PCP - General Family Medicine 02/14/25 Hot Tamale Worker Relationship Specialty Start Date End Date Celia Al [address] [place], [place] [address] PCP - General Family Medicine 02/14/25 Hot Tamale Worker Relationship Specialty Start Date End Date Celia Al [address] [place] [address] PCP - General Family Medicine 02/14/25 Hot Tamale Worker Relationship Specialty Start Date End Date Celia Al [address] [place] [address] PCP - General Family Medicine 02/14/25 Hot Tamale Worker Relationship Specialty Start Date End Date Celia Al [address] [place] [address] PCP - General Family Medicine 02/14/25 Hot Tamale Worker Relationship Specialty Start Date End Date Celia Al DO [address] [facility], [address] [place] [address] PCP - General 09/24/15 Celia Al DO [address] [place] [facility] [address] [facility], [address] [place] [address] PCP - [employer] Medicare Advantage PCP 08/17/21 Rashi Jerome MD [address] [place] [address] 100 [place] [address] Referring Physician Cardiology 11/04/22 Samuel Cochran MD [address] [facility] [address] [place], [place] [address] Referring Physician Gastroenterology 11/24/23 Juany Larsen, top closerBeauty Culture Teacher 01/20/24 Jhoan Livingston MD [address] [place] [address] [address] [place] [phone] Sports Book Server Nephrology 02/11/24 Hot Tamale Worker Relationship Specialty Start Date End Date Celia Al [address] [place] [address] PCP - General Family Medicine 02/14/25 Hot Tamale Worker Relationship Specialty Start Date End Date Celia Al [address] [place] [address] PCP - General Family Medicine 02/14/25 Hot Tamale Worker Relationship Specialty Start Date End Date Celia Al DO [address] [facility], [address] [place] [address] PCP - General 09/25/15 Keven Marcus MD [address] [place] [address] Consulting Physician Hematology and Oncology 12/02/22 Hot Tamale Worker Relationship Specialty Start Date End Date Celia Al DO [address] [facility], [address] [place] [address] PCP - General 09/25/15 Keven Marcus MD [address] [place], [place] [id number] Consulting Physician Hematology and Oncology 12/02/22 Hot Tamale Worker Relationship Specialty Start Date End Date Celia Al [address] [place] [address] PCP - General Family Medicine 02/14/25 Rashi Jerome 1 [facility] [address] [place], [place] [id number] Cardiology 02/28/25 Nickolas Pagan MD [address] [facility] [address] [place] [address] Pulmonary and Critical Care Medicine 02/28/25 Team Status: Active Member Role/Relationship Status Dates Dr. Celia Al DO Primary Care Provider Active Team Status: Active Member Role/Relationship Status Dates Dr. Rosalee Francisco DPM Attending Provider Active Start: March 07, 2025 Dr. Celia Al DO Primary Care Provider Active Start: March 07, 2025 Dr. Celia Al DO Referring Provider Active Start: March 07, 2025 Team Status: Inactive Member Role/Relationship Status Dates Dr. Celia Al DO Primary Care Provider Active Start: March 08, 2025 End: March 08, 2025 MEIR Myrick Attending Provider Active Star t: March 08, 2025 End: March 08, 2025 Dr. Rosalee Francisco DPM Referring Provider Active Start: March 08, 2025 End: March 08, 2025 Hot Tamale Worker Relationship Specialty Start Date End Date Celia Al DO [address] [facility], [address] [place] [address] PCP - General 09/25/15 Keven Marcus MD [address] [facility] [address] [place], [place] [phone] Consulting Physician Hematology and Oncology 12/02/22 Hot Tamale Worker Relationship Specialty Start Date End Date Celia Al [address]00 [facility] [address] [place] [address] PCP - General Family Medicine 02/14/25 Rashi Jerome 1 [facility]. [address] [place] [address] Cardiology 02/28/25 Nickolas Pagan MD [address] [place], [place] [phone] Pulmonary and Critical Care Medicine 02/28/25 Hot Tamale Worker Relationship Specialty Start Date End Date Celia Al [address] [place], [place] [address] PCP - General Family Medicine 02/14/25 Rahsi Jerome 1 [facility]. [address] [place] [address] Cardiology 02/28/25 Nickolas Pagan MD [address] [place] [address] Pulmonary and Critical Care Medicine 02/28/25 Hot Tamale Worker Relationship Specialty Start Date End Date Celia Al [address] [place] [address] PCP - General Family Medicine 02/14/25 Rashi Jerome 1 [facility]. [address] [place] [address] Cardiology 02/28/25 Nickolas Pagan MD [address] [place] [address] Pulmonary and Critical Care Medicine 02/28/25 Scheduled Active and Recently Administ ered Medications (unrecognized section and content) Medication Order 10/04/2023 10/05/2023 10/06/2023 citalopram (CeleXA) tablet 20 mg 20 mg, Oral, Daily, First dose on Thu10/06/23 at 0900 0900 (Not Given - Provider: Zachary Terrell RN - Reason: Other - Comment: takes it at HS)2100 (Canceled Entry - Provider: Automatic Discharge Provider - Comment: Automatically canceled at discontinue of medication order) ezetimibe (Zetia) tablet 10 mg 10 mg, Oral, Daily, First dose on Thu10/06/23 at 0800 0906 (Given - Provid er: Zachary Terrell RN) Insulin Lispro (Humalog) injection 0-6 Units(Linked Group 1) 0-6 Units, SubCUTAneous, 3 times daily with meals, First dose on Thu10/05/23 at 1200, Low Dose Correction Algorithm Glucose: Dose: LESS than 139 No Insulin 140-199 1 Unit 200-249 2 Units 250-299 3 Units 300-349 4 Units 350-400 5 Units Above 400 6 Units 1199 (Canceled Entry - Provider: Laney Rosales RN)1700 (Not Given - Provider: Laney Rosales RN - Reason: Patient/family refused) 0800 (Not Given - Provider: Zachary Terrell RN - Reason: Order parameters not met)1200 (Not Given - Provider: Zachary Terrell RN - Reason: Order parameters not met)1700 (Not Given - Provider: Zachary Terrell RN - Reason: Order parameters not met) Insulin Lispro (Humalog) injection 0-6 Units(Linked Group 1) 0-6 Units, SubCUTAneous, Nightly, First dose on Thu10/05/23 at 2100, If continuous tube feedings/TPN/NPO, give correction dose based on result, no reduction in dose. If eating or bolus tube feeding: Low Dose Correction Algorithm Glucose: Dose: LESS than 139 No Insulin 140-199 1 Unit 200-249 2 Units 250-299 3 Units 300-349 4 Units 350-400 5 Units Above 400 6 Units 2013 (Given - Provider: Argenis Valenzuela RN) 2100 (Canceled Entry - Provider: Automatic Discharge Provider - Comment: Automatically canceled at discontinue of medication order) losartan (Cozaar) tablet 100 mg 100 mg, Oral, Daily, First dose on Thu10/06/23 at 0900 0905 (Given - Provid er: Zachary Terrell RN) metoprolol tartrate (Lopressor) tablet 25 mg 25 mg, Oral, 2 times daily, First dose on Thu10/05/23 at 2100 2013 (Given - Provider: Argenis Valenzuela RN) 0905 (Given - Provider: Zachary Terrell RN)2099 (Canceled Entry - Provider: Automatic Discharge Provider - Comment: Automatically canceled at discontinue of medication order) PRN Medication Order 10/04/2023 10/05/2023 10/06/2023 acetaminophen (Tylenol) suppository 650 mg(Linked Group 2) 650 mg, Rectal, Every 6 hours PRN, mild pain (1-3), fever, For temp greater than 100.4 F (38 C), Starting on Thu10/05/23 at 1020, Administer if oral route cannot be used. Maximum dose of acetaminophen is 4000 mg from all sources in 24 hours. acetaminophen (Tylenol) tablet 650 mg(Linked Group 2) 650 mg, Oral, Every 6 hours PRN, mild pain (1-3), fever, For temp greater than 100.4 F (38 C), Starting on Thu10/05/23 at 1020, Maximum dose of acetaminophen is 4000 mg from all sources in 24 hours. dextrose 5 % infusion 100 mL/hr, IntraVENous, PRN, Blood sugar less than 70mg/dL, Starting on Thu10/05/23 at 1029, Start infusion following administration of dextrose 50% or glucagon. dextrose 50 % solution 12.5 g 12.5 g, IntraVENous, PRN, low blood sugar, Blood glucose less than 70 mg/dL and patient NOT ALERT or NPO., Starting on Thu10/05/23 at 1029, If patient does not respond within 5 minutes, repeat dose x1. Start D5W at 100 mL/hour until ordering provider can be reached. Repeat blood glucose in 15 minutes. If blood glucose is less than 70 mg/dL, repeat treatment and recheck blood glucose in 15 minutes x2. If using Glucostabilizer, dose as instructed per system. fentaNYL (Sublimaze) injection (COMPLETED) IntraVENous, As needed, Starting on Thu10/05/23 at 1348, Intraprocedure 1348 (Given - Provider: Chavez Scott, RN) glucagon (human recombinant) injection 1 mg 1 mg, IntraMUSCular, PRN, low blood sugar, Blood glucose less than 70 mg/dL and patient NOT ALERT or NPO and does not have IV access., Starting on Thu10/05/23 at 1029, After administration, attempt intravenous access and start D5W at 100 mL/hr. Repeat blood glucose in 15 minutes x2 and notify provider. glucose oral gel 15 g 15 g, Oral, As needed, low blood sugar, Starting on Thu10/05/23 at 1029, If blood glucose less than 50 mg/dL and patient ALERT and NOT NPO, give 2 tubes glucose gel. If blood glucose less than 70 mg/dL and patient ALERT and NOT NPO, give 1 tube glucose gel. Repeat blood glucose in 15 minutes. If blood glucose is less than 70 mg/dL, repeat treatment and recheck blood glucose in 15 minutes x2 and notify provider. hydrALAZINE (Apresoline) injection 5 mg 5 mg, IntraVENous, Every 4 hours PRN, high blood pressure, sbp greater than 160, Starting on Thu10/05/23 at 2358 0016 (Given - Provid er: Argenis Valenzuela RN)0421 (Given - Provider: Argenis Valenzuela RN) ipratropium-albuterol (Duo-Neb) 0.5-2.5 mg/3 mL nebulizer solution 3 mL 3 mL, Nebulization, 3 times daily PRN, shortness of breath, wheezing, Starting on Thu10/05/23 at 1021 lidocaine PF (Xylocaine) 1 % injection (COMPLETED) As needed, Starting on Thu10/05/23 at 1350, Intraprocedure 1350 (Given - Provider: Fay Rosario MD) midazolam (Versed) injection (COMPLETED) IntraVENous, As needed, Starting on Thu10/05/23 at 1348, Intraprocedure 1348 (Given - Provider: Chavez Scott, RN) naloxone (Narcan) injection 0.4 mg 0.4 mg, IntraVENous, Every 5 min PRN, opioid reversal, respiratory depression, Starting on Thu10/05/23 at 1555, +++ For RR <10, pinpoint pupils, over sedation for opioid reversal - MUST notify electronics hardware design engineer provider immediately after first dose, may give IM or SQ if no IV access +++ ondansetron (Zofran) injection 4 mg(Linked Group 3) 4 mg, IntraVENous, Every 6 hours PRN, nausea, vomiting, Starting on Thu10/05/23 at 1020, 1st Line. Give IV if patient is unable to take orally. If inadequate response within 60 minutes, proceed to next-line agent or contact provider if no further options ordered. ondansetron ODT (Zofran-ODT) disintegrating tablet 4 mg(Linked Group 3) 4 mg, Oral, Every 8 hours PRN, nausea, vomiting, Starting on Thu10/05/23 at 1020, 1st Line. If inadequate response within 60 minutes, proceed to next-line agent or contact provider if no further options ordered. Patient should allow tablet to dissolve on tongue. Do not remove from blister pack until just before administering. oxyCODONE-acetaminophen (Percocet) 5-325 MG per tablet 1 tablet 1 tablet, Oral, Every 6 hours PRN, moderate pain (4-6), severe pain (7-10), Starting on Thu10/05/23 at 1021, Maximum dose of acetaminophen is 4000 mg from all sources in 24 hours. 1655 (Given - Provider: Laney Rosales, RN)2324 (Given - Provider: Argenis Valenzuela, RN) 1545 (Given - Provider: Zachary Terrell RN) polyethylene glycol (PEG) 3350 (Miralax) packet 17 g 17 g, Oral, Daily PRN, constipation, Starting on Thu10/05/23 at 1020, 1st line for treatment of constipation - give scheduled if no bowel movement in past 24 hours. sodium chloride 0.9 % infusion (CANCELED) 5-250 mL/hr, IntraVENous, PRN, if patient receiving piggyback infusions and maintenance fluids are not ordered OR KVO fluids to protect IV site / prevent frequent line interruptions/ long duration, Starting on Thu10/05/23 at 0750, Preprocedure, For piggyback infusion, administer at same rate as piggyback for a total of 25 mL. Enter 25 mL into dose field and piggyback rate into rate field of order. If piggyback is infusing at a rate less than 100 mL/hr, enter 25 mL into dose field and 100 mL/hr into rate field of order. For KVO fluids, enter rate of 20 mL/hr or less into rate field of order. 0751 (New Bag - Provider: Masood Pedersen RN)0806 (Continued by Anesthesia - Provider: Mandy Rodas CRNA)0946 (Stopped - Provider: Mandy Rodas CRNA) Linked Groups Order Group 1: Insulin Lispro (Humalog) injection 0-6 UnitsJump to med 0-6 Units, SubCUTAneous, 3 times daily with meals, First dose on Thu10/05/23 at 1200, Low Dose Correction Algorithm Glucose: Dose: LESS than 139 No Insulin 140- 199 1 Unit 200-249 2 Units 250-299 3 Units 300-349 4 Units 350-400 5 Units Above 400 6 Units And Insulin Lispro (Humalog) injection 0-6 UnitsJump to med 0-6 Units, SubCUTAneous, Nightly, First dose on Thu10/05/23 at 2100, If continuous tube feedings/TPN/NPO, give correction dose based on result, no reduction in dose. If eating or bolus tube feeding: Low Dose Correction Algorithm Glucose: Dose: LESS than 139 No Insulin 140-199 1 Unit 200-249 2 Units 250-299 3 Units 300-349 4 Units 350-400 5 Units Above 400 6 Units Group 2: acetaminophen (Tylenol) tablet 650 mgJump to med 650 mg, Oral, Every 6 hours PRN, mild pain (1-3), fever, For temp greater than 100.4 F (38 C), Starting on Thu10/05/23 at 1020, Maximum dose of acetaminophen is 4000 mg from all sources in 24 hours. Or acetaminophen (Tylenol) suppository 650 mgJump to med 650 mg, Rectal, Every 6 hours PRN, mild pain (1-3), fever, For temp greater than 100.4 F (38 C), Starting on Thu10/05/23 at 1020, Administer if oral route cannot be used. Maximum dose of acetaminophen is 4000 mg from all sources in 24 hours. Group 3: ondansetron ODT (Zofran-ODT) disintegrating tablet 4 mgJump to med 4 mg, Oral, Every 8 hours PRN, nausea, vomiting, Starting on Thu10/05/23 at 1020, 1st Line. If inadequate response within 60 minutes, proceed to next-line agent or contact provider if no further options ordered. Patient should allow tablet to dissolve on tongue. Do not remove from blister pack until just before administering. Or ondansetron (Zofran) injection 4 mgJump to med 4 mg, IntraVENous, Every 6 hours PRN, nausea, vomiting, Starting on Thu10/05/23 at 1020, 1st Line. Give IV if patient is unable to take orally. If inadequate response within 60 minutes, proceed to next-line agent or contact provider if no further options ordered. Scheduled Medication Order 01/20/2024 01/21/2024 01/22/2024 acetaminophen (Ofirmev) IVPB 1,000 mg (COMPLETED) 1,000 mg, IntraVENous, at 400 mL/hr, Administer over 15 Minutes, Once, On Thu01/20/24 at 0030, For 1 dose 0100 (New Bag - Provider: Kimi Diaz RN)0115 (Stopped - Provider: Kimi Diaz RN) amiodarone (Pacerone) tablet 400 mg 400 mg, Oral, 2 times daily, First dose on Thu01/21/24 at 0900 0839 (Given - Provider: Magalis Sibley RN)2001 (Given - Provider: Neeta العلي RN) 07 (Given - Provider: Magalis Sibley RN) amLODIPine (Norvasc) tablet 5 mg 5 mg, Oral, Daily, First dose on Thu01/22/24 at 0900 0722 (Given - Provider: Magalis Sibley RN) apixaban (Eliquis) tablet 5 mg 5 mg, Oral, 2 times daily, First dose on Thu01/19/24 at 2100, For 7 days, Anticoagulant 0801 (Given - Provider: Radha Yuan RN)2012 (Given - Provider: Neeta العلي RN) 0839 (Given - Provider: Magalis Sibley, AYO)2001 (Given - Provider: Neeta العلي RN) 0722 (Given - Provider: Magalis Sibley RN) carvedilol (Coreg) tablet 12.5 mg (CANCELED) 12.5 mg, Oral, 2 times daily with meals, First dose (after last modification) on Thu01/21/24 at 0800 0839 (Given - Provider: Magalis Sibley RN)1700 (Not Given - Provider: Magalis Sibley RN - Reason: Order parameters not met) carvedilol (Coreg) tablet 25 mg 25 mg, Oral, 2 times daily with meals, First dose (after last modification) on Thu01/21/24 at 1715 1745 (Given - Provider: Magalis Sibley RN) 0722 (Given - Provider: Magalis Sibley RN)1701 (Given - Provider: Magalis Sibley RN) citalopram (CeleXA) tablet 20 mg (CANCELED) 20 mg, Oral, Daily, First dose on Thu01/19/24 at 1935 0801 (Given - Provider: Radha Yuan RN) digoxin (Lanoxin) injection 250 mcg (COMPLETED)(Linked Group 1) 250 mcg, IntraVENous, Administer over 5 Minutes, Every 6 hours, First dose on Thu01/20/24 at 0200, For 2 doses 0213 (Given - Provider: Kimi Diaz RN)0746 (Given - Provider: Radha Yuan RN) furosemide (Lasix) injection 80 mg (COMPLETED) 80 mg, IntraVENous, Once, On Thu01/20/24 at 0600, For 1 dose 0644 (Given - Provider: Kimi Diaz RN) Insulin Lispro (Humalog) injection 0-6 Units(Linked Group 2) 0-6 Units, SubCUTAneous, 3 times daily with meals, First dose on Thu01/21/24 at 1300, Low Dose Correction Algorithm Glucose: Dose: LESS than 139 No Insulin 140-199 1 Unit 200-249 2 Units 250-299 3 Units 300-349 4 Units 350-400 5 Units Above 400 6 Units 1518 (Given - Provider: Magalis Sibley RN)1700 (Not Given - Provider: Magalis Sibley RN - Reason: Order parameters not met - Comment: POCT 125) 0800 (Given - Provider: Quynh Lopez RN)1256 (Given - Provider: Magalis Sibley RN)1700 (Canceled Entry - Provider: Automatic Discharge Provider - Comment: Automatically canceled at discontinue of medication order) Insulin Lispro (Humalog) injection 0-6 Units(Linked Group 2) 0-6 Units, SubCUTAneous, Nightly, First dose on Thu01/21/24 at 2100, If continuous tube feedings/TPN/NPO, give correction dose based on result, no reduction in dose. If eating or bolus tube feeding: Low Dose Correction Algorithm Glucose: Dose: LESS than 139 No Insulin 140-199 1 Unit 200-249 2 Units 250-299 3 Units 300-349 4 Units 350-400 5 Units Above 400 6 Units 2005 (Given - Provider: Neeta العلي RN - Comment: BGT 157) losartan (Cozaar) tablet 100 mg 100 mg, Oral, Daily, First dose (after last modification) on Thu01/22/24 at 0900 0722 (Given - Provider: Magalis Sibley RN) losartan (Cozaar) tablet 25 mg (CANCELED) 25 mg, Oral, Daily, First dose on Thu01/20/24 at 1999 2012 (Given - Provider: Neeta العلي RN) losartan (Cozaar) tablet 50 mg (CANCELED) 50 mg, Oral, Daily, First dose (after last modification) on Thu01/21/24 at 0900 0839 (Given - Provider: Magalis Sibley RN) magnesium sulfate IVPB premix 2,000 mg (COMPLETED) 2,000 mg, IntraVENous, at 25 mL/hr, Administer over 2 Hours, Once, On Thu01/20/24 at 0215, For 1 dose, Recommended infusion rate not to exceed 1,000 mg (milligrams) per hour. 0217 (New Bag - Provider: Kimi Diaz RN)0417 (Stopped - Provider: Kimi Diaz RN) pantoprazole (ProtoNix) EC tablet 40 mg 40 mg, Oral, Every morning, First dose on Thu01/20/24 at 0900, Do not crush, chew, or split. 0801 (Given - Provider: Radha Yuan RN) 0839 (Given - Provider: Magalis Sibley RN) 0723 (Given - Provider: Magalis Sibley RN) rosuvastatin (Crestor) tablet 10 mg 10 mg, Oral, Nightly, First dose on Thu01/19/24 at 2100 2012 (Given - Provider: Neeta العلي RN) 2005 (Given - Provider: Neeta العلي RN) sertraline (Zoloft) tablet 25 mg 25 mg, Oral, Daily, First dose on Thu01/21/24 at 0900 0839 (Given - Provider: Magalis Sibley, AYO) 0934 (Given - Provider: Quynh Lopez, RN) spironolactone (Aldactone) tablet 25 mg 25 mg, Oral, Daily, First dose on Thu01/21/24 at 0900 0839 (Given - Provider: Magalis Sibley, AYO) 0722 (Given - Provider: Magalis Sibley, AYO) tiotropium (Spiriva Respimat) 2.5 MCG/ACT inhaler 2 puff 2 puff, Inhalation, Daily, First dose on Thu01/19/24 at 1935, Instruct to hold breath for 10 seconds after each inhalation. Before first use, prime inhaler by actuating until aerosal cloud is seen, then actuating 3 more times. 0801 (Given - Provider: Radha Yuan RN) 0839 (Given - Provider: Magalis Sibley, AYO) 0934 (Given - Provider: Quynh Lopez, AYO) Continuous Medication Order 01/20/2024 01/21/2024 01/22/2024 nitroprusside in sodium chloride 0.9 % (500 mcg/mL) (Nipride) infusion (CANCELED) 0.3-3 mcg/kg/min 66.3 kg (2.3868-23.868 mL/hr, rounded to 2.39-23.87 mL/hr), IntraVENous, Continuous, Starting on Thu01/19/24 at 1935, If ordered with a ranged dose and not at goal parameter(s), initiate at lowest dose in ordered range. Titrate by 0.5 mcg/kg/min every 5 minutes as needed to reach and maintain goal. Contact prescriber if unable to maintain goal at max ordered dose., Titrate Infusion? Yes, Initial Infusion Dose: 0.25 mcg/kg/min, Goal of Therapy is: MAP, MAP Goal: Other, Goal MAP less than: MAP 70-75, Contact Provider if: SBP less than 90 mmHg 0109 (Rate/Dose Change - Provider: Kimi Diaz RN)0311 (Rate/Dose Verify - Provider: Kimi Diaz RN)0329 (New Bag - Provider: Kimi Diaz RN)0644 (Rate/Dose Verify - Provider: Kimi Diaz RN)0747 (New Bag - Provider: Radha Yuan RN)1248 (New Bag - Provider: Radha Yuan RN)1430 (Rate/Dose Change - Provider: Radha Yuan RN)1700 (Rate/Dose Change - Provider: Radha Yuan RN)1900 (Rate/Dose Change - Provider: Radha Yuan RN)2001 (New Bag - Provider: Rik Baker RN) 0300 (New Bag - Provider: Neeta العلي RN)0600 (Rate/Dose Change - Provider: Neeta العلي RN)0615 (Rate/Dose Change - Provider: Neeta العلي RN)0839 (Stopped - Provider: Magalis Sibley RN - Comment: New Order) nitroprusside in sodium chloride 0.9 % (500 mcg/mL) (Nipride) infusion (CANCELED) 0.3-3 mcg/kg/min 66.3 kg (2.3868-23.868 mL/hr, rounded to 2.39-23.87 mL/hr), IntraVENous, Continuous, Starting on Tonia 01/21/24 at 0815, If ordered with a ranged dose and not at goal parameter(s), initiate at lowest dose in ordered range. Titrate by 0.5 mcg/kg/min every 5 minutes as needed to reach and maintain goal. Contact prescriber if unable to maintain goal at max ordered dose., Titrate Infusion? Yes, Initial Infusion Dose: 0.25 mcg/kg/min, Goal of Therapy is: MAP, MAP Goal: Other, Goal MAP less than: MAP 70-75, Contact Provider if: SBP less than 90 mmHg 0839 (New Bag - Provider: Magalis Sibley RN)1220 (Rate/Dose Change - Provider: Magalis Sibley RN)1315 (Rate/Dose Change - Provider: Magalis Sibley RN)1345 (Rate/Dose Change - Provider: Magalis Sibley, AYO)1519 (Stopped - Provider: Magalis Sibley, AYO) PRN Medication Order 01/20/2024 01/21/2024 01/22/2024 Acetaminophen (Tylenol) 650 MG/20.3ML solution 650 mg(Linked Group 3) 650 mg, Oral, Every 4 hours PRN, mild pain (1-3), Starting on Thu01/20/24 at 0753, Give oral liquid if patient prefers or per feeding tube if present. If inadequate response within 60 minutes, proceed to next-line agent for same PRN reason or contact provider if no further options ordered. 0809 (See Alternative - Provider: Radha Yuan RN) acetaminophen (Tylenol) suppository 650 mg(Linked Group 3) 650 mg, Rectal, Every 4 hours PRN, mild pain (1-3), Starting on Thu01/20/24 at 0753, Give DE if unable to administer by mouth or feeding tube. If inadequate response within 60 minutes, proceed to next-line agent for same PRN reason or contact provider if no further options ordered. 0809 (See Alternative - Provider: Radha Yuan, AYO) acetaminophen (Tylenol) tablet 650 mg(Linked Group 3) 650 mg, Oral, Every 4 hours PRN, mild pain (1-3), Starting on Thu01/20/24 at 0753, If inadequate response within 60 minutes, proceed to next-line agent for same PRN reason or contact provider if no further options ordered. 0809 (Given - Provider: Radha Yuan, AYO) albuterol 108 (90 Base) MCG/ACT inhaler 2 puff 2 puff, Inhalation, Every 4 hours PRN, wheezing, shortness of breath, Starting on Thu01/19/24 at 1930 dextrose 5 % infusion 100 mL/hr, IntraVENous, PRN, Blood sugar less than 70mg/dL, Starting on Thu01/21/24 at 1249, Start infusion following administration of dextrose 50% or glucagon. dextrose 50 % solution 12.5 g 12.5 g, IntraVENous, PRN, low blood sugar, Blood glucose less than 70 mg/dL and patient NOT ALERT or NPO., Starting on Thu01/21/24 at 1249, If patient does not respond within 5 minutes, repeat dose x1. Start D5W at 100 mL/hour until ordering provider can be reached. Repeat blood glucose in 15 minutes. If blood glucose is less than 70 mg/dL, repeat treatment and recheck blood glucose in 15 minutes x2. If using Glucostabilizer, dose as instructed per system. glucagon (human recombinant) injection 1 mg 1 mg, IntraMUSCular, PRN, low blood sugar, Blood glucose less than 70 mg/dL and patient NOT ALERT or NPO and does not have IV access., Starting on Thu01/21/24 at 1249, After administration, attempt intravenous access and start D5W at 100 mL/hr. Repeat blood glucose in 15 minutes x2 and notify provider. glucose oral gel 15 g 15 g, Oral, As needed, low blood sugar, Starting on Thu01/21/24 at 1249, If blood glucose less than 50 mg/dL and patient ALERT and NOT NPO, give 2 tubes glucose gel. If blood glucose less than 70 mg/dL and patient ALERT and NOT NPO, give 1 tube glucose gel. Repeat blood glucose in 15 minutes. If blood glucose is less than 70 mg/dL, repeat treatment and recheck blood glucose in 15 minutes x2 and notify provider. iopamidol (Isovue-370) 76 % injection 75 mL (COMPLETED) 75 mL, IntraVENous, IMG once PRN, contrast, Starting on Thu01/21/24 at 1133, For 1 dose 1133 (Given - Provider: Jarrell Chris, RT (R)) No Frequency Medication Order 01/20/2024 01/21/2024 01/22/2024 Propofol (Diprivan) 200 MG/20ML injection - Pyxis ADS Override Pull (COMPLETED) Starting on Thu01/20/24 at 1442, For 1 dose, Radha Yuan: cabinet override General Anesthetic - do not give without appropriate ventilation support. 1548 (Given - Provider: Radha Yuan, RN) Linked Groups Order Group 1: digoxin (Lanoxin) injection 500 mcg (COMPLETED) 500 mcg, IntraVENous, Administer over 5 Minutes, Once, On Thu01/19/24 at 2000, For 1 dose Followed by digoxin (Lanoxin) injection 250 mcg (COMPLETED)Jump to med 250 mcg, IntraVENous, Administer over 5 Minutes, Every 6 hours, First dose on Thu01/20/24 at 0200, For 2 doses Group 2: Insulin Lispro (Humalog) injection 0-6 UnitsJump to med 0-6 Units, SubCUTAneous, 3 times daily with meals, First dose on Thu01/21/24 at 1300, Low Dose Correction Algorithm Glucose: Dose: LESS than 139 No Insulin 140- 199 1 Unit 200-249 2 Units 250-299 3 Units 300-349 4 Units 350-400 5 Units Above 400 6 Units And Insulin Lispro (Humalog) injection 0-6 UnitsJump to med 0-6 Units, SubCUTAneous, Nightly, First dose on Thu01/21/24 at 2100, If continuous tube feedings/TPN/NPO, give correction dose based on result, no reduction in dose. If eating or bolus tube feeding: Low Dose Correction Algorithm Glucose: Dose: LESS than 139 No Insulin 140-199 1 Unit 200-249 2 Units 250-299 3 Units 300-349 4 Units 350-400 5 Units Above 400 6 Units Group 3: acetaminophen (Tylenol) tablet 650 mgJump to med 650 mg, Oral, Every 4 hours PRN, mild pain (1-3), Starting on Thu01/20/24 at 0753, If inadequate response within 60 minutes, proceed to next-line agent for same PRN reason or contact provider if no further options ordered. Or Acetaminophen (Tylenol) 650 MG/20.3ML solution 650 mgJump to med 650 mg, Oral, Every 4 hours PRN, mild pain (1-3), Starting on Thu01/20/24 at 0753, Give oral liquid if patient prefers or per feeding tube if present. If inadequate response within 60 minutes, proceed to next-line agent for same PRN reason or contact provider if no further options ordered. Or acetaminophen (Tylenol) suppository 650 mgJump to med 650 mg, Rectal, Every 4 hours PRN, mild pain (1-3), Starting on Thu01/20/24 at 0753, Give DE if unable to administer by mouth or feeding tube. If inadequate response within 60 minutes, proceed to next-line agent for same PRN reason or contact provider if no further options ordered. PRN Medication Order 05/03/2024 05/04/2024 05/05/2024 acetaminophen (Tylenol) tablet 650 mg 650 mg, Oral, Every 4 hours PRN, mild pain (1-3), Fever > 100.5 F (38 C), Starting on Tonia 05/05/24 at 1517, Recovery & On Unit, Maximum dose of acetaminophen is 4000 mg from all sources in 24 hours. bupivacaine PF (Marcaine) 0.5 % injection (CANCELED) As needed, Starting on Tonia 05/05/24 at 1324, Intraprocedure 1324 (Given - Provid er: Walt Leigh MD) hydrALAZINE (Apresoline) injection 5 mg (CANCELED)(Linked Group 1) 5 mg, IntraVENous, Every 15 min PRN, high blood pressure, for SBP greater than 160 mmHg for 2 consecutive measurements taken from different sites, Starting on Tonia 05/05/24 at 1512, For 2 doses, Recovery (only), PRN for SBP > 160 for 2 consecutive measurements, and if one of the following conditions is met: 1) If IV labetolol is ineffective. 2) If HR is under 60. 3) If patient has heart block, COPD or asthma. If both labetalol and hydralazine ineffective, notify anesthesia provider. 1519 (Given - Provid er: Fabiana Conde RN) lidocaine-EPINEPHrine (Xylocaine W/EPI) 2 %-1:010928 injection (CANCELED) As needed, Starting on Tonia 05/05/24 at 1323, Intraprocedure 1323 (Given - Provid er: Walt Leigh MD) sodium chloride 0.9 % infusion (CANCELED) 5-250 mL/hr, IntraVENous, PRN, if patient receiving piggyback infusions and maintenance fluids are not ordered OR KVO fluids to protect IV site / prevent frequent line interruptions / long duration, Starting on Tonia 05/05/24 at 1035, Preprocedure, For piggyback infusion, administer at same rate as piggyback for a total of 25 mL. Enter 25 mL into dose field and piggyback rate into rate field of order. If piggyback is infusing at a rate less than 100 mL/hr, enter 25 mL into dose field and 100 mL/hr into rate field of order. For KVO fluids, enter rate of 20 mL/hr or less into rate field of order. 1259 (New Bag - Prov ider: SUJATA Juarez CRNA)1434 (Anesthesia Volume Adjustment - Provider: SUJATA Juarez CRNA) Linked Groups Order Group 1: labetalol (Normodyne,Trandate) injection 5 mg (CANCELED) 5 mg, IntraVENous, Every 10 min PRN, high blood pressure, for SBP greater than 160 mmHg for 2 consecutive measurements taken from different sites., Starting on [facility] 05/05/24 at 1512, For 2 doses, Recovery (only), PRN for SBP >160 for 2 consecutive measurements, if HR is 60 or greater. If beta luna is contraindicated (HR less than 60, heart block, COPD or asthma) use hydralazine IV order. Or hydrALAZINE (Apresoline) injection 5 mg (CANCELED)Jump to med 5 mg, IntraVENous, Every 15 min PRN, high blood pressure, for SBP greater than 160 mmHg for 2 consecutive measurements taken from different sites, Starting on [facility] 05/05/24 at 1512, For 2 doses, Recovery (only), PRN for SBP > 160 for 2 consecutive measurements, and if one of the following conditions is met: 1) If IV labetolol is ineffective. 2) If HR is under 60. 3) If patient has heart block, COPD or asthma. If both labetalol and hydralazine ineffective, notify anesthesia provider. Scheduled Medication Order 08/27/2024 08/28/2024 08/29/2024 amLODIPine (Norvasc) tablet 2.5 mg 2.5 mg, Oral, Daily, First dose on Thu08/28/24 at 0900 0900 (Not Given - Provider: Juliet Asif RN - Reason: Patient/family refused) 0825 (Given - Provider: Tiffanie Blank RN) apixaban (Eliquis) tablet 5 mg 5 mg, Oral, 2 times daily, First dose on Thu08/26/24 at 2105, Anticoagulant 0810 (Given - Provider: Huan Esquivel RN)2027 (Given - Provider: Nela Nickerson, AYO) 0843 (Given - Provider: Juliet Asif RN)2111 (Given - Provider: Nela Nickerson RN) 0826 (Given - Provider: Tiffanie Blank RN) atovaquone (Mepron) suspension 1,500 mg 1,500 mg, Oral, Daily, First dose on 08/27/24 at 0900, Suspected Indication (Select all that apply): Pneumonia (CAP), Other, Other Abx Indication: PCP prophylaxis 0900 (Not Given - Provider: Huan Esquivel RN - Reason: Medication not available) 0844 (Given - Provider: Juliet Asif RN) 0952 (Given - Provider: Tiffanie Blank RN) carvedilol (Coreg) tablet 12.5 mg 12.5 mg, Oral, 2 times daily with meals, First dose (after last modification) on Thu08/26/24 at 2130 0809 (Given - Provider: uHan Esquivel RN)1817 (Given - Provider: Maite Low RN) 0843 (Given - Provider: Juliet Asif RN)1736 (Given - Provider: Juliet Asif RN) 0826 (Given - Provider: Tiffanie Blank RN)1700 (Canceled Entry - Provider: Automatic Discharge Provider - Comment: Automatically canceled at discontinue of medication order) cholecalciferol (Vitamin D-3) tablet 4,000 Units 4,000 Units, Oral, Daily, First dose on 08/27/24 at 0900 0809 (Given - Provider: Huan Esquivel RN) 0841 (Given - Provider: Juliet Asif RN) 0825 (Given - Provider: Tiffanie Blank RN) ezetimibe (Zetia) tablet 10 mg 10 mg, Oral, Daily, First dose on 08/27/24 at 0800 0809 (Given - Provider: Huan Esquivel RN) 0842 (Given - Provider: Juliet Asif RN) 0825 (Given - Provider: Tiffanie Blank RN) Finerenone tablet 1 tablet 1 tablet, Oral, Daily, First dose on 08/27/24 at 0900, Non-formulary medication, please have patient provide, pharmacy must verify product prior to inpatient use 0900 (Not Given - Provider: Huan Esquivel RN - Reason: Medication not available) 0850 (Given - Provider: Juliet Asif RN) 0832 (Given - Provider: Tiffanie Blank RN) furosemide (Lasix) injection 40 mg (CANCELED) 40 mg, IntraVENous, 2 times daily, First dose (after last reorder) on Thu08/27/24 at 0900 1023 (Given - Provider: Huan Esquivel RN)2027 (Given - Provider: Nela Nickerson RN) 0844 (Given - Provider: Juliet Asif RN)2110 (Given - Provider: Nela Nickerson RN) 0825 (Given - Provider: Tifafnie Blank RN) furosemide (Lasix) tablet 20 mg 20 mg, Oral, Daily, First dose on Thu08/30/24 at 0900 Insulin Lispro (Humalog) injection 0-6 Units(Linked Group 1) 0-6 Units, SubCUTAneous, 3 times daily with meals, First dose on Thu08/27/24 at 0800, Low Dose Correction Algorithm Glucose: Dose: LESS than 150 No Insulin 150-199 1 Unit 200-249 2 Units 250-299 3 Units 300-349 4 Units 350-400 5 Units Above 400 6 Units 0800 (Not Given - Provider: Huan Esquivel RN - Reason: Order parameters not met)1318 (Given - Provider: Huan Esquivel RN)1817 (Given - Provider: Maite Low RN) 0800 (Not Given - Provider: Juliet Asif RN - Reason: Order parameters not met)1152 (Given - Provider: Juliet Asif RN)1736 (Given - Provider: Juliet Asif RN) 0824 (Not Given - Provider: Tiffanie Blank RN - Reason: Order parameters not met)1200 (Not Given - Provider: Tiffanie Blank RN - Reason: Order parameters not met)1700 (Canceled Entry - Provider: Automatic Discharge Provider - Comment: Automatically canceled at discontinue of medication order) Insulin Lispro (Humalog) injection 0-6 Units(Linked Group 1) 0-6 Units, SubCUTAneous, Nightly, First dose on Thu08/26/24 at 2105, If eating or bolus tube feeding: Low Dose Correction Algorithm Glucose: Dose: LESS than 150 No Insulin 150-199 1 Unit 200-249 2 Units 250-299 3 Units 300-349 4 Units 350-400 5 Units Above 400 6 Units 2027 (Given - Provider: Nela Nickerson RN) 2111 (Given - Provider: Nela Nickerson RN) ipratropium-albuterol (Duo-Neb) 0.5-2.5 mg/3 mL nebulizer solution 3 mL 3 mL, Nebulization, 3 times daily, First dose on 08/27/24 at 0840 0908 (Given - Provider: Marylou Escalante RCP)1408 (Given - Provider: Marylou Escalante RCP)2116 (Given - Provider: Shabbir Pozo RCP) 0946 (Given - Provider: Mauri Roe RCP)1348 (Given - Provider: Mauri Roe RCP)2104 (Given - Provider: Shabbir Pozo RCP) 0851 (Given - Provider: Yeimi Chopra RCP)1400 (Canceled Entry - Provider: Automatic Discharge Provider - Comment: Automatically canceled at discontinue of medication order) losartan (Cozaar) tablet 100 mg 100 mg, Oral, Daily, First dose on 08/27/24 at 0900 0809 (Given - Provider: Huan Esquivel RN) 0842 (Given - Provider: Juliet Asif RN) 0826 (Given - Provider: Tiffanie Blank RN) mometasone-formoterol (Dulera 200) 200-5 MCG/ACT inhaler 2 puff 2 puff, Inhalation, 2 times daily, First dose on 08/27/24 at 2000, Rinse mouth with water after use to reduce aftertaste and incidence of candidiasis. Do not swallow. 2027 (Given - Provider: Nela Nickerson RN) 0844 (Given - Provider: Juliet Asif RN)2115 (Given - Provider: Nela Nickerson RN) 0836 (Given - Provider: Tiffanie Blank RN) pantoprazole (ProtoNix) EC tablet 40 mg 40 mg, Oral, Daily before breakfast, First dose on 08/27/24 at 0600, Substituted for lansoprazole (Prevacid). Do not crush, chew, or split. 0809 (Given - Provider: Huan Esquivel RN - Comment: pt awake) 0843 (Given - Provider: Juliet Asif RN - Comment: NA) 0409 (Given - Provider: Nela Nickerson RN) predniSONE (Deltasone) tablet 60 mg 60 mg, Oral, Daily, First dose on 08/27/24 at 0900 0809 (Given - Provider: Huan Esquivel RN) 0842 (Given - Provider: Juliet Asif RN) 0825 (Given - Provider: Tiffanie Blank, AYO) rosuvastatin (Crestor) tablet 10 mg 10 mg, Oral, Daily, First dose on 08/27/24 at 0800 0809 (Given - Provider: Huan Esquivel RN) 2111 (Given - Provider: Nela Nickerson, AYO) sertraline (Zoloft) tablet 25 mg 25 mg, Oral, Daily, First dose on 08/27/24 at 0900 0809 (Given - Provider: Huan Esquivel RN) 2111 (Given - Provider: Nela Nickerson, AYO) tiotropium (Spiriva Respimat) 2.5 MCG/ACT inhaler 2 puff 2 puff, Inhalation, Daily, First dose on 08/27/24 at 0900, Instruct to hold breath for 10 seconds after each inhalation. Before first use, prime inhaler by actuating until aerosal cloud is seen, then actuating 3 more times. 0900 (Not Given - Provider: Huan Esquivel RN - Reason: Medication not available) 0844 (Given - Provider: Juliet Asif RN) 0835 (Given - Provider: Tiffanie Blank, AYO) PRN Medication Order 08/27/2024 08/28/2024 08/29/2024 acetaminophen (Tylenol) suppository 650 mg(Linked Group 2) 650 mg, Rectal, Every 6 hours PRN, mild pain (1-3), fever, For temp greater than 100.4 F (38 C), Starting on Thu08/26/24 at 2101, Administer if oral route cannot be used. Maximum dose of acetaminophen is 4000 mg from all sources in 24 hours. 1816 (See Alternative - Provider: Maite Low RN) 2123 (See Alternative - Provider: Nela Nickerson RN) acetaminophen (Tylenol) tablet 650 mg(Linked Group 2) 650 mg, Oral, Every 6 hours PRN, mild pain (1-3), fever, For temp greater than 100.4 F (38 C), Starting on Thu08/26/24 at 2101, Maximum dose of acetaminophen is 4000 mg from all sources in 24 hours. 1816 (Given - Provider: Maite Low, AYO) 2123 (Given - Provider: Nela Nickerson RN) albuterol 108 (90 Base) MCG/ACT inhaler 2 puff 2 puff, Inhalation, Every 4 hours PRN, wheezing, shortness of breath, Starting on Thu08/26/24 at 2103 dextrose 5 % infusion 100 mL/hr, IntraVENous, PRN, Blood sugar less than 70mg/dL, Starting on Thu08/26/24 at 2101, Start infusion following administration of dextrose 50% or glucagon. dextrose 50 % solution 12.5 g 12.5 g, IntraVENous, PRN, low blood sugar, Blood glucose less than 70 mg/dL and patient NOT ALERT or NPO., Starting on Thu08/26/24 at 2101, If patient does not respond within 5 minutes, repeat dose x1. Start D5W at 100 mL/hour until ordering provider can be reached. Repeat blood glucose in 15 minutes. If blood glucose is less than 70 mg/dL, repeat treatment and recheck blood glucose in 15 minutes x2. If using Glucostabilizer, dose as instructed per system. glucagon (human recombinant) injection 1 mg 1 mg, IntraMUSCular, PRN, low blood sugar, Blood glucose less than 70 mg/dL and patient NOT ALERT or NPO and does not have IV access., Starting on Thu08/26/24 at 2101, After administration, attempt intravenous access and start D5W at 100 mL/hr. Repeat blood glucose in 15 minutes x2 and notify provider. glucose oral gel 15 g 15 g, Oral, As needed, low blood sugar, Starting on Thu08/26/24 at 2101, If blood glucose less than 50 mg/dL and patient ALERT and NOT NPO, give 2 tubes glucose gel. If blood glucose less than 70 mg/dL and patient ALERT and NOT NPO, give 1 tube glucose gel. Repeat blood glucose in 15 minutes. If blood glucose is less than 70 mg/dL, repeat treatment and recheck blood glucose in 15 minutes x2 and notify provider. guaiFENesin (Mucinex) 12 hr tablet 1,200 mg 1,200 mg, Oral, 2 times daily PRN, cough, Starting on Thu08/26/24 at 2103, Administer with plenty of fluids to ensure proper action. Do not crush, chew, or split. hydrALAZINE (Apresoline) injection 10 mg 10 mg, IntraVENous, Every 4 hours PRN, high blood pressure, SBP>160, Starting on Thu08/26/24 at 2103 1206 (Given - Provider: Huan Esquivel, RN)2041 (Given - Provider: Nela Nickerson RN) lidocaine PF (Xylocaine) 1 % injection (COMPLETED) As needed, Starting on Thu08/29/24 at 1415, Intraprocedure 1415 (Given - Provider: Stella Gaitan PA-C) polyethylene glycol (PEG) 3350 (Miralax) packet 17 g 17 g, Oral, Daily PRN, constipation, Starting on Thu08/26/24 at 2101, 1st line for treatment of constipation - give scheduled if no bowel movement in past 24 hours. Linked Groups Order Group 1: Insulin Lispro (Humalog) injection 0-6 UnitsJump to med 0-6 Units, SubCUTAneous, 3 times daily with meals, First dose on Thu08/27/24 at 0800, Low Dose Correction Algorithm Glucose: Dose: LESS than 150 No Insulin 150- 199 1 Unit 200-249 2 Units 250-299 3 Units 300-349 4 Units 350-400 5 Units Above 400 6 Units And Insulin Lispro (Humalog) injection 0-6 UnitsJump to med 0-6 Units, SubCUTAneous, Nightly, First dose on Thu08/26/24 at 2105, If eating or bolus tube feeding: Low Dose Correction Algorithm Glucose: Dose: LESS than 150 No Insulin 150-199 1 Unit 200-249 2 Units 250-299 3 Units 300-349 4 Units 350-400 5 Units Above 400 6 Units Group 2: acetaminophen (Tylenol) tablet 650 mgJump to med 650 mg, Oral, Every 6 hours PRN, mild pain (1-3), fever, For temp greater than 100.4 F (38 C), Starting on Thu08/26/24 at 2101, Maximum dose of acetaminophen is 4000 mg from all sources in 24 hours. Or acetaminophen (Tylenol) suppository 650 mgJump to med 650 mg, Rectal, Every 6 hours PRN, mild pain (1-3), fever, For temp greater than 100.4 F (38 C), Starting on Thu08/26/24 at 2101, Administer if oral route cannot be used. Maximum dose of acetaminophen is 4000 mg from all sources in 24 hours. Scheduled Medication Order 10/19/2024 10/20/2024 10/21/2024 cephalexin (Keflex) capsule 500 mg (COMPLETED) 500 mg, Oral, Once, On Thu10/21/24 at 1950, For 1 dose, Suspected Indication (Select all that apply): Urinary Tract Infection 1955 (Given - Provid er: Delores Vigil RN) sodium chloride 0.9 % bolus 500 mL (COMPLETED) 500 mL, IntraVENous, at 500 mL/hr, Administer over 1 Hours, Once, On Thu10/21/24 at 1715, For 1 dose 1715 (New Bag - Prov ider: Delores Vigil RN)181 (Stopped - Provider: Delores Vigil RN) Scheduled Medication Order 11/09/2024 11/10/2024 11/11/2024 amLODIPine (Norvasc) tablet 2.5 mg 2.5 mg, Oral, Daily, First dose on Thu11/09/24 at 0900 0935 (Given - Provider: Jessica Caldwell RN) 1238 (Given - Provider: Nolan Dougherty, AYO) 0846 (Given - Provider: Tootie Banerjee RN) apixaban (Eliquis) tablet 5 mg 5 mg, Oral, 2 times daily, First dose on Thu11/08/24 at 2100, Anticoagulant, On hold since Thu11/08/2024 at 1810 until manually unheld 0900 (Dose Auto Held)2100 (Dose Auto Held) 0900 (Dose Auto Held)2100 (Dose Auto Held) 0900 (Dose Auto Held)1619 (Unheld by provider - Provider: Automatic Discharge Provider) atovaquone (Mepron) suspension 1,500 mg 1,500 mg, Oral, Daily, First dose on Thu11/08/24 at 1830, Suspected Indication (Select all that apply): Other, Other Abx 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 0934 (Given - Provider: Jessica Caldwell RN) 1238 (Given - Provider: Nolan Dougherty, AYO) 0831 (Given - Provider: Lisandra Greer) carvedilol (Coreg) tablet 12.5 mg 12.5 mg, Oral, 2 times daily with meals, First dose on Thu11/08/24 at 1815 0935 (Given - Provider: Jessica Caldwell RN)1644 (Given - Provider: Joe Vaughn RN) 0800 (Not Given - Provider: Nolan Dougherty RN - Reason: NPO)1912 (Given - Provider: Nolan Dougherty RN) 0821 (Given - Provider: Lisandra Greer) ezetimibe (Zetia) tablet 10 mg 10 mg, Oral, Daily, First dose on Thu11/09/24 at 0800 0935 (Given - Provider: Jessica Caldwell RN) 1238 (Given - Provider: Nolan Dougherty, RN) 0822 (Given - Provider: Lisandra Greer) Finerenone tablet 1 tablet 1 tablet, Oral, Daily, First dose on Thu11/09/24 at 0900, Non-formulary medication. Patient must supply. Pharmacy must physically verify prior to administration. 0900 (Not Given - Provider: Jessica Caldwell RN - Reason: Medication not available) 0900 (Not Given - Provider: Nolan Dougherty RN - Reason: Medication not available) 0900 (Not Given - Provider: Lisandra Greer - Reason: Medication not available - Comment: Pt. has to supply from home) iron sucrose (Venofer) 200 mg in sodium chloride 0.9 % 100 mL IVPB (COMPLETED) 200 mg, IntraVENous, at 300 mL/hr, Administer over 20 Minutes, Once, On Thu11/11/24 at 1300, For 1 dose, Observe for signs and symptoms of hypersensitivity and/or anaphylactic-type reactions per institutional standard during and following administration. 1311 (New Bag - Provider: Ana Hung, AYO)1331 (Stopped - Provider: Ana Hung RN) linaGLIPtin (Tradjenta) tablet 5 mg(Linked Group 1) 5 mg, Oral, Daily with breakfast, First dose on Thu11/09/24 at 0800, Substituted for Jentadueto XR 0935 (Given - Provider: Jessica Caldwell RN) 1238 (Given - Provider: Nolan Dougherty RN) 0823 (Given - Provider: Lisandra Greer) losartan (Cozaar) tablet 100 mg 100 mg, Oral, Daily, First dose on Thu11/09/24 at 0900 0935 (Given - Provider: Jessica Caldwell RN) 1238 (Given - Provider: Nolan Dougherty RN) 0828 (Given - Provider: Lisandra Greer) metFORMIN XR (Glucophage-XR) 24 hr tablet 2,000 mg (CANCELED)(Linked Group 1) 2,000 mg, Oral, Daily with breakfast, First dose on Thu11/09/24 at 0800, Substituted for Jentadueto XR Do not crush, chew, or split. 0934 (Given - Provider: Jessica Caldwell RN) pantoprazole (ProtoNix) 40 mg in sodium chloride (PF) 0.9 % 10 mL injection 40 mg, IntraVENous, Administer over 2 Minutes, Daily before breakfast, First dose on Thu11/08/24 at 1750, Reconstitute with 10 ml NS. Vial expires 2 hrs after reconstitution. 0500 (Given - Provider: Una Churchill RN) 0652 (Given - Provider: Una Churchill RN) 0508 (Given - Provider: Cassandra Barnes RN) predniSONE (Deltasone) tablet 15 mg (CANCELED) 15 mg, Oral, Daily, First dose on Thu11/09/24 at 1330 1451 (Given - Provider: Joe Vaughn RN) 1238 (Given - Provider: Nolan Dougherty RN) predniSONE (Deltasone) tablet 20 mg 20 mg, Oral, Daily, First dose (after last modification) on Thu11/11/24 at 0900 0829 (Given - Provider: Lisandra Greer) tiotropium (Spiriva Respimat) 2.5 MCG/ACT inhaler 2 puff 2 puff, Inhalation, Daily, First dose on Thu11/10/24 at 1530, Instruct to hold breath for 10 seconds after each inhalation. Before first use, prime inhaler by actuating until aerosal cloud is seen, then actuating 3 more times. 191 (Given - Provider: Nolan Dougherty RN) 0834 (Given - Provider: Lisandra Greer) PRN Medication Order 11/09/2024 11/10/2024 11/11/2024 acetaminophen (Tylenol) suppository 650 mg(Linked Group 2) 650 mg, Rectal, Every 6 hours PRN, mild pain (1-3), fever, For temp greater than 100.4 F (38 C), Starting on Thu11/08/24 at 1742, Administer if oral route cannot be used. Maximum dose of acetaminophen is 4000 mg from all sources in 24 hours. acetaminophen (Tylenol) tablet 650 mg(Linked Group 2) 650 mg, Oral, Every 6 hours PRN, mild pain (1-3), fever, For temp greater than 100.4 F (38 C), Starting on Thu11/08/24 at 1742, Maximum dose of acetaminophen is 4000 mg from all sources in 24 hours. albuterol 108 (90 Base) MCG/ACT inhaler 2 puff 2 puff, Inhalation, Every 6 hours PRN, wheezing, Starting on Thu11/10/24 at 1522 melatonin tablet 10 mg 10 mg, Oral, Nightly PRN, sleep, Starting on Thu11/09/24 at 2242 2311 (Given - Provider: Una Churchill, RN) 2210 (Given - Provider: Cassandra Barnes RN) ondansetron (Zofran) injection 4 mg(Linked Group 3) 4 mg, IntraVENous, Every 6 hours PRN, nausea, vomiting, Starting on Thu11/08/24 at 1742, 1st Line. Give IV if patient is unable to take orally. If inadequate response within 60 minutes, proceed to next-line agent or contact provider if no further options ordered. ondansetron ODT (Zofran-ODT) disintegrating tablet 4 mg(Linked Group 3) 4 mg, Oral, Every 8 hours PRN, nausea, vomiting, Starting on Thu11/08/24 at 1742, 1st Line. If inadequate response within 60 minutes, proceed to next-line agent or contact provider if no further options ordered. Patient should allow tablet to dissolve on tongue. Do not remove from blister pack until just before administering. polyethylene glycol (PEG) 3350 (Miralax) packet 17 g 17 g, Oral, Daily PRN, constipation, Starting on Thu11/08/24 at 1742, 1st line for treatment of constipation - give scheduled if no bowel movement in past 24 hours. simethicone (Mylicon) drops (CANCELED) Intraluminal, As needed, Starting on Thu11/10/24 at 1201, Intraprocedure 1201 (Given - Provider: Stan Jama DO) sodium chloride 0.9 % infusion (COMPLETED) 250 mL/hr, IntraVENous, Administer over 10 Minutes, As needed, For use in priming line prior to transfusion (prime via gravity) and flush line post transfusion, Starting on Thu11/08/24 at 1435, For 1 dose, For use in priming line prior to transfusion (prime via gravity) and flush line post transfusion ONLY. Discontinue once line has been cleared of remaining blood product. 1145 (New Bag - Provider: SUJATA Younger CRNA)1204 (Rate/Dose Change - Provider: SUJATA Younger CRNA) Linked Groups Order Group 1: metFORMIN XR (Glucophage-XR) 24 hr tablet 2,000 mg (CANCELED)Jump to med 2,000 mg, Oral, Daily with breakfast, First dose on Thu11/09/24 at 0800, Substituted for Jentadueto XR Do not crush, chew, or split. And linaGLIPtin (Tradjenta) tablet 5 mgJump to med 5 mg, Oral, Daily with breakfast, First dose on Thu11/09/24 at 0800, Substituted for Jentadueto XR Group 2: acetaminophen (Tylenol) tablet 650 mgJump to med 650 mg, Oral, Every 6 hours PRN, mild pain (1-3), fever, For temp greater than 100.4 F (38 C), Starting on Thu11/08/24 at 1742, Maximum dose of acetaminophen is 4000 mg from all sources in 24 hours. Or acetaminophen (Tylenol) suppository 650 mgJump to med 650 mg, Rectal, Every 6 hours PRN, mild pain (1-3), fever, For temp greater than 100.4 F (38 C), Starting on Thu11/08/24 at 1742, Administer if oral route cannot be used. Maximum dose of acetaminophen is 4000 mg from all sources in 24 hours. Group 3: ondansetron ODT (Zofran-ODT) disintegrating tablet 4 mgJump to med 4 mg, Oral, Every 8 hours PRN, nausea, vomiting, Starting on Thu11/08/24 at 1742, 1st Line. If inadequate response within 60 minutes, proceed to next-line agent or contact provider if no further options ordered. Patient should allow tablet to dissolve on tongue. Do not remove from blister pack until just before administering. Or ondansetron (Zofran) injection 4 mgJump to med 4 mg, IntraVENous, Every 6 hours PRN, nausea, vomiting, Starting on Thu11/08/24 at 1742, 1st Line. Give IV if patient is unable to take orally. If inadequate response within 60 minutes, proceed to next-line agent or contact provider if no further options ordered. PRN Medication Order 01/15/2025 01/16/2025 01/17/2025 sodium chloride 0.9 % infusion 250 mL/hr, IntraVENous, Administer over 10 Minutes, As needed, For use in priming line prior to transfusion (prime via gravity) and flush line post transfusion, Starting on Thu01/17/25 at 1325, For 1 dose, For use in priming line prior to transfusion (prime via gravity) and flush line post transfusion ONLY. Discontinue once line has been cleared of remaining blood product. Goals (unrecognized section and content) Goals may be documented in a n alternate section FOR RECORDS PERTAINING TO PATIENTS WHO ARE OR HAVE BEEN ENROLLED IN A CHEMICAL DEPENDENCY/SUBSTANCEABUSE PROGRAM, SOME INFORMATION MAY BE OMITTED. This clinical summary was aggregated from multiple sources. Caution should be exercised in using it in the provision of clinical care. This summary normalizes information from multiple sources, and as a consequence, information in this document may materially change the coding, format and clinical context of patient data. In addition, data may be omitted in some cases. CLINICAL DECISIONS SHOULD BE BASED ON THE PRIMARY CLINICAL RECORDS. [facility]. provides no warranty or guarantee of the accuracy or completeness of information in this document.
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
[2025-03-11 19:26] LABS: Hematocrit 20.9 % (37-47); Hemoglobin 6.2 g/dL (12.0-15.0); Immature Granulocytes Count 0.030 X10^3/uL (0.0-0.0); Mean Corp Hgb Conc 29.7 g/dL (32-36); Mean Corpuscular Volume 90.5 fL (81-99); Mean Platelet Vol. 9.3 fl (6.2-12.0); NRBC Flagged by Analyzer 0 % (0-5); Platelet Count 239 K/mm3 (150-450); RBC Distribution Width CV 18.1 % (11.6-14.6); RBC Distribution Width SD 59.2 fl (35.1-43.9); Red Blood Count 2.31 M/mm3 (4.2-5.4); White Blood Count 5.3 K/mm3 (4.4-11.0)
[2025-03-11 19:34] LABS: Partial Thromboplast Time 32.5 Seconds (24.1-36.2); Prothrombin Time (Protime)PT. 17.4 SECONDS (11.7-14.9)
--- NOTE | 2025-03-11 20:02 | CT_ITS ---
PROCEDURE: CTA ABD/PELVIS W/WO CONTRAST 03/11/2025 REASON FOR EXAM: GI BLEED TECHNIQUE: CTA ABD/PELVIS W/WO CONTRAST Multiplanar Sagittal and Coronal images were obtained. Three-dimensional reconstructions CONTRAST: Isovue 370 VOLUME: 100 cc mL One or more dose reduction techniques were used (e.g., Automated exposure control, adjustment of the mA and/or kV according to patient size, use of iterative reconstruction technique). RADIATION DOSE SUMMARY: CTDlvol: 58 mGy DLP: 469 mGycm FINDINGS: There is a [id number] right-sided pleural effusion. The liver, gallbladder and spleen are unremarkable. There is no pancreatic mass or visible pancreatic inflammation. The adrenal glands are normal. There is no renal calculus. There is no hydronephrosis or ureteral dilatation. There is no free-fluid or free air. There is no bowel obstruction. No evidence of colitis or diverticulitis. No small bowel obstruction, pneumatosis or portal venous gas. Evaluation of the vascular structures demonstrates normal distal thoracic aorta. Diffuse atherosclerotic calcification. Patent celiac artery. High-grade stenosis with narrowing of the proximal superior mesenteric artery. Some reconstitution of normal caliber distally involving the distal 2nd order branches. Calcification and narrowing at the origin of the right renal artery. Patent left renal artery. Atherosclerosis with severe narrowing of the left and right common iliac artery proximally. CT/CTA Abd/Pelvis W/WO Contrast IMPRESSION: 1. 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 2. Diffuse atherosclerosis. 3. No other etiology for GI bleeding identified. No signs of mesenteric ischem ia, pneumatosis. Reading [facility]
[2025-03-11 20:04] LABS: Mucous, Urine 0 SEEN /hpf (<or=2+); Squamous Epithelial Cells - UA 0 SEEN /hpf (5-10)
[2025-03-11 20:05] LABS: AST(SGOT) 60 U/L (<=31); Alanine Aminotransfer ALT/SGPT 57 U/L (<=34); Albumin, Serum 3.7 g/dL (3.4-4.8); Alkaline Phosphatase 53 U/L (35-104); Anion Gap 15 (5-15); BUN 22 mg/dL (4-19); BUN/Creat Ratio 20.3 RATIO (10-20); Calcium,Total 8.9 mg/dL (7.6-11.0); Carbon Dioxide 19.1 mmol/L (21.0-32.0); Chloride 101 mmol/L (98-108); Globulin 2.4 g/dL (2.2-4.2); Glucose 150 mg/dL (70-99); Lipase 58 U/L (13-75); Potassium 4.6 mmol/L (3.3-5.1)
[2025-03-11 20:06] LABS: Color, Urine Straw (Yellow); Glucose, Dipstick Normal (Normal); Ketone-Dipstick Negative (Negative); Leukocyte Esterase-Dipstick Negative /ul (Negative); Nitrite-Dipstick Negative (Negative); Occult Blood-Urine 10 /ul (Negative); Protein-Dipstick 100 mg/dl (Negative); Specific Gravity, Urine 1.015 (1.002-1.030); Urine Bilirubin Dipstick Negative (Negative)
[2025-03-11 20:19] LABS: Red Blood Cells-Urine 0-5 SEEN /hpf (0-5)
[2025-03-11] MEDS: Pantoprazole Sodium 40 MG in 0.9% Normal Saline (100mL MB+) 100 ML 300 MG IV (20:50)
[2025-03-12] VITALS (9 sets, daily range): BP systolic 153–178; BP diastolic 58–99; PULSE 86–104; RESP 16–20; TEMP 35.7–36.8; O2SAT 95–98
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
== END 2025-03-12 04:30 | disposition home or self-care (01) ==
PROVIDERS: Emergency Provider Emergency Medicine; PCP Student in an Organized Health Care Education/Training Program; Visit Provider Emergency Medicine
DX: D64.9 Anemia, unspecified (principal); K55.029 Acute infarction of small intestine, extent unspecified; K92.2 Gastrointestinal hemorrhage, unspecified; J44.9 Chronic obstructive pulmonary disease, unspecified; I48.91 Unspecified atrial fibrillation; J90 Pleural effusion, not elsewhere classified; I73.9 Peripheral vascular disease, unspecified; Z79.01 Long term (current) use of anticoagulants; K44.9 Diaphragmatic hernia without obstruction or gangrene; Z79.899 Other long term (current) drug therapy; R06.02 Shortness of breath; Z86.73 Personal history of transient ischemic attack (TIA), and cerebral infarction without residual deficits
CPT/HCPCS: 74174; 80053; 81001; 82274; 83690; 85025; 85610; 85730; 86850; 86900; 86901; 86920; 96361; 96365; 99283; P9016; Q9967; A4216

== ENCOUNTER 2025-03-22 13:52 | Outpatient (RCR) | payer MEDICARE, SELFPAY ==
[2025-03-22 13:59] VITALS: BP 159/45; PULSE 86; RESP 16; TEMP 35.8
--- NOTE | 2025-03-22 14:05 | PCM.WC.PN ---
History of Present Illness Date of Service: 03/22/25 Chief Complaint: Full-thickness wound dorsal aspect first metatarsal phalangeal joint right foot History of Wound: Small full-thickness wound to the dorsal aspect of the first metatarsophalangeal joint right foot Progress of Wound: Healed full-thickness wound to the right dorsal aspect of the first metatarsal phalangeal joint. Subjective Subjective Patient is a 80-year-old female presenting to clinic today follow-up evaluation of healed full-thickness wound to the dorsal aspect of the first metatarsal phalangeal joint of the right foot. After quick discussion the patient has put her back surgery on hold and will be moving forward with vascular intervention as there is a finding in her aorta from a recent emergency room visit and CT scan. Patient will be following up with vascular surgery in the next couple of weeks for consultation, evaluation and possible treatment. Overall she is grateful for her care. Her wound is healed. She understands that she has a serious vascular issue and needs to be treated. She is very grateful for her care and she denies trauma. Denies constitutional symptoms. No other pedal complaints at this time. Objective Data Objective Data Vital Signs: Vital Signs Temp Pulse Resp BP 96.4 F L 86 16 159/45 H 03/22/25 13:59 03/22/25 13:59 03/22/25 13:59 03/22/25 13:59 Radiography Diagnostic Testing: Radiology Impression Extremity Arterial Study 03/07/25 09:06 Interpretation Summary Monophasic Doppler waveforms are noted at ankle level on the right. Biphasic and triphasic Doppler waveforms are noted at ankle level on the left. Pulse-volume recordings appear diminished at all levels on the right, and at digital level on the left. The resting right ankle-brachial index is severely diminished. The resting left ankle-brachial index is moderately diminished. The right digital-brachial index was not determined. The left digital-brachial index is moderately to severely diminished. There is evidence of severe arterial occlusive disease in the right lower extremity, with evidence of arterial inflow disease. There is evidence of [id number] multi-segmental arterial occlusive disease in the left lower extremity. Ordering Physician: Emil Francisco Referring Physician: Celia Al DO Performed By: MONIQUE VASQUEZ RVT Venous Doppler Study 03/07/25 09:06 Interpretation Summary Deep veins of the lower extremities are bilaterally patent and compressible segmentally. There is no evidence of deep vein thrombosis on either side. Valvular competence appears intact within the proximal deep venous systems bilaterally. The great saphenous veins appear bilaterally patent and compressible segmentally. The right sapheno-femoral junction is incompetent . The left sapheno-femoral junction is competent . Valvular competence appears to be intact segmentally within the great saphenous veins bilaterally. Small saphenous veins are patent and competent bilaterally. Ordering Physician: mEil Francisco Referring Physician: Celia Al Performed By: Monique Vasquez RVT Physical Exam Narrative Vascular: DP and PT pulses are faintly palpable to the right lower extremity. CFT is delayed. Nonpitting edema appreciated to the right lower extremity when compared to the left. No evidence of hemosiderin deposits are appreciated. Neurological: Light touch is intact. Patient does respond to painful stimuli. Dermatological: Full-thickness wound to the dorsal aspect of the right foot first metatarsal phalangeal joint is now healed. No concern for infection. Musculoskeletal: No pain on Compression Debridement Note Debridement Note Post-Debridement Measurements and Additional Note: Post-Debridement Measurements/Treatment WC - Nurse 1 - General Ulcer Assessment Start: 03/22/25 13:59 Freq: Status: Active Protocol: EDUARD.LOWEXT Activity Type Activity Date Activity User E-sign Co-sign Detail Recorded Client Recorded Date Recorded By Document 03/22/25 13:59 ALIZA [id number] 03/22/25 14:02 03/22/25 13:59 - Today's Visit Information Type of service Follow-up Visit (Physician/FIELD ASSESSOR ) Arrival Mode Ambulatory Patient Identification Verified (Name & Yes ) Patient Requires Transmission-Based No Precautions Vital Signs Temperature (97.8 F-99.1 F) 96.4 F L Temperature Source Temporal Pulse Rate (60-100) 86 Pulse Location Monitor Respiratory Rate (12-18) 16 Respiratory rate source Observation Blood Pressure (90/60-120/80) 159/45 H Blood Pressure Mean (mm Hg) 83 Source Monitor Position Semi-Fowlers Blood Pressure Location Left Arm History Since Last Visit- (Skip if this is Patient's initial visit) Have you changed medications since your Yes last visit? Any new allergies or adverse reactions No Had a fall/change in ADL's that may No increase risk of falls Signs or symptoms of abuse and/or No neglect since last visit Have you been in the hospital since your No last visit? Has dressing in place as prescribed Yes Has compression in place as prescribed Yes Has offloadiing in place as prescribed N/A Experienced any changes in pain level or No management Left Footwear Regular Shoe Right Footwear Regular Shoe Pain Scale: 0-10 Numeric Is Patient Pain Free? Yes - Nurse 1 - General Ulcer Measurement Start: 03/22/25 13:59 Freq: Status: Active Protocol: Activity Type Activity Date Activity User E-sign Co-sign Detail Recorded Client Recorded Date Recorded By Document 03/22/25 13:59 [id number] 03/22/25 14:02 03/22/25 13:59 Wound Center Nurse 1 #1 RT HALLUX -Combined with other wound No -Current Size (cm) - Length 0 -Current Size (cm) - Width 0 -Current Size (cm) - Depth 0 -Total Square Cm 0 -Photo Taken Yes -Epithelialization Large 67-100% Lower Limb Edema Present NA - Nurse 2 - General Ulcer CM Notes Start: 03/22/25 13:59 Freq: Status: Active Protocol: Activity Type Activity Date Activity User E-sign Co-sign Detail Recorded Client Recorded Date Recorded By Document 03/22/25 14:04 [id number] 03/22/25 14:05 03/22/25 14:04 Wound Center Nurse 2 #1 RT HALLUX -Correct Patient Yes -Correct Side, Site, Position No -Correct Procedure No -Procedure Performed No -Post Debridement (cm) - Length 0 -Post Debridement (cm) - Width 0 -Post Debridement (cm) - Depth 0 -Total Square (Post) (cm) 0 -Area of Debridement (cm) - Length 0 -Area of Debridement (cm) - Width 0 -Total Square (Area) (cm) 0 -Wound/Ulcer Outcome Healed- Epithelialized Pain Scale: 0-10 Numeric Is Patient Pain Free? Yes WC - Nurse 3 - General Ulcer D/C NN Start: 03/22/25 13:59 Freq: Status: Active Protocol: Activity Type Activity Date Activity User E-sign Co-sign Detail Recorded Client Recorded Date Recorded By Document 03/22/25 14:05 ALIZA [id number] 03/22/25 14:05 03/22/25 14:05 Is Patient Pain Free? Yes WC - Visit Discharge Discharge Condition Stable Ambulatory Status Ambulatory Transportation Private Auto Medication Reconcilliation completed & Yes provided to patient/care provider Clinical Summary of Care Provided Yes Assessment/Plan Assessment/Plan (1) Non-pressure chronic ulcer of other part of right foot with fat layer exposed: CODE(S): L97.512 - Non-pressure chronic ulcer of other part of right foot with fat layer exposed PLAN: Patient was examined and evaluated. All findings were discussed with the patient. All questions were answered to the patient satisfaction. After physical exam the patient's full-thickness wound the dorsal aspect of the right foot metatarsophalangeal joint is now healed. The patient will continue to wear compression until follow-up with vascular surgery for consultation and possible intervention. The patient has stopped her back surgery as she has findings in the aorta from a recent emergency room CT scan and needs a vascular surgeon for evaluation and further treatment as well as vascular surgery to the right lower extremity due to severe occlusive disease. The patient is very grateful for her care and will follow-up with the wound care center as needed. She will be discharged today. (2) Other specified peripheral vascular diseases: CODE(S): I73.89 - Other specified peripheral vascular diseases
--- NOTE | 2025-03-23 09:58 | WC ---
PHOTO-RIGHT GREAT TOE 03/22/25
== END 2025-04-13 07:49 | disposition home or self-care (01) ==
LOC: WC 13:52
PROVIDERS: PCP Student in an Organized Health Care Education/Training Program; Referring Provider Student in an Organized Health Care Education/Training Program; Visit Provider Podiatrist Foot & Ankle Surgery
DX: Z09 Encounter for follow-up examination after completed treatment for conditions other than malignant neoplasm (principal); I73.89 Other specified peripheral vascular diseases
CPT/HCPCS: 99213; G0463

== ENCOUNTER → 2025-03-24 | Outpatient (CLI) | payer MEDICARE, SELFPAY ==
--- NOTE | 2025-03-24 14:54 | CT_ITS ---
PROCEDURE: CTA ABD W/RUNOFF W/WO CONTRAST 03/24/2025 REASON FOR EXAM: SEVERE RLE ATHEROSCLEROSIS WITH REST PAIN TECHNIQUE: CTA ABD W/RUNOFF W/WO CONTRAST Multiplanar Sagittal and Coronal images were obtained. CONTRAST: Isovue 300 VOLUME: 100 mL One or more dose reduction techniques were used (e.g., Automated exposure control, adjustment of the mA and/or kV according to patient size, use of iterative reconstruction technique). RADIATION DOSE SUMMARY: CTDlvol: 19 mGy DLP: 956 mGycm COMPARISON: Abdominopelvic CT 03/11/2029 FINDINGS: Multiple left upper lobe lung nodules, partially imaged,. Multiple bilateral lower lobe smaller noncalcified lung nodules. Recommend chest CT. Small right and tiny left-sided effusion adjacent atelectasis. Normal heart size. Unremarkable liver, gallbladder, pancreas, spleen, adrenal glands, kidneys. No hydronephrosis. Normal bladder. Status post hysterectomy. No retroperitoneal pelvic adenopathy. No free air. Nonobstructed bowel. Diverticulosis. No signs of appendicitis. Lumbar spine degeneration. No acute abdominal wall findings. The aortoiliac system is heavily calcified. There is a high-grade stenosis of the proximal SMA, with near occlusion. There is moderate calcified plaque at the origins of each renal artery. The celiac axis and RAZ are patent. 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 There is extensive iliac region calcified plaque. On the right, the PHOTOGRAPHIC AIDE, SFA, and PFA are significant calcified but patent. Popliteal artery is calcified but patent. There is three-vessel runoff to the ankle/foot. There is soft tissue swelling of the right leg and foot. On the left, the PHOTOGRAPHIC AIDE, SFA, and PFA are significantly calcified but patent. Popliteal arteries calcified but patent. There is three-vessel runoff to the ankle/foot. 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 Three-vessel runoff to the bilateral ankle/foot region. Reading Location: [place] [id number]
== END | disposition home or self-care (01) ==
LOC: CT 14:45
PROVIDERS: PCP Student in an Organized Health Care Education/Training Program; Referring Provider Physician Assistant; Visit Provider Physician Assistant
DX: I70.221 Atherosclerosis of native arteries of extremities with rest pain, right leg (principal)
CPT/HCPCS: 75635; Q9967

== ENCOUNTER 2025-04-24 14:24 | Outpatient (RCR) | payer MEDICARE, SELFPAY ==
[2025-04-24 14:31] VITALS: BP 149/71; PULSE 96; RESP 14; TEMP 36.3
--- NOTE | 2025-04-25 10:35 | EX.PCM.CON.S ---
Assessment & Plan Assessment/Plan (1) Atherosclerosis of right lower extremity with rest pain: QUALIFIERS: Peripheral atherosclerosis artery type: eklutna artery Qualified Code(s): I70.221 - Atherosclerosis of eklutna arteries of extremities with rest pain, right leg PLAN: Plastic surgery will be available for reconstruction and assistance with the axillofemoral bypass. I talked to the patient about potential donor muscles for muscle flap reconstruction especially in the groin, or as needed in the abdomen. We talked about vastus lateralis flaps, rectus femoris flaps, and sartorius flaps. I talked about the risks of flap failure including necrosis of the muscle and need for revision surgery. I talked to her about the potential risks of bleeding, damage to surrounding structures (especially nerves), infection, wound dehiscence and need for wound care, and the risks of anesthesia including stroke, VTE, and . She understands the risks, benefits, and alternatives to reconstruction over the bypass, and assistance with vascular surgery. She elects to proceed. (2) Skin ulcer of abdomen: PLAN: I discussed with the patient my concern for malignancy as the wound has been there for 30 years. I reviewed the CT scan with the patient and there is bowel immediately beneath the wound and very thin abdominal wall. Given that there is a large bulge and some bowel beneath the wound, I am going to discuss with my general surgery colleagues plan for safe biopsy. PLAN: Plan Assessment and Plan 80-year-old female with a history of peripheral artery disease presenting with rest pain and numbness in the right lower extremity. The condition has persisted despite medication, and a right axillary-femoral bypass is planned, contingent on resolving anemia. The patient also presents with anemia, with a recent hemoglobin level of 6.6 g/dL, necessitating a blood transfusion. She experienced a significant gastrointestinal bleed, and a bone marrow biopsy is scheduled to investigate further. The patient has a history of diabetes mellitus, with a last known HbA1c of 7.1%, and reports difficulty in medication adherence. She has a history of breast cancer with reconstruction, and a persistent abdominal wound at the donor site with concerns of necrosis. Additionally, she has a history of atrial fibrillation, treated with ablation therapy last year, and an abdominal bulge noted during examination. 1. Peripheral Artery Disease The patient is scheduled for a right axillary-femoral bypass, contingent on resolving anemia. The procedure aims to alleviate rest pain and numbness in the right lower extremity. 2. Anemia The patient received a blood transfusion due to a hemoglobin level of 6.6 g/dL. A bone marrow biopsy is scheduled to investigate the underlying cause of anemia. 3. Diabetes Mellitus The patient reports difficulty in medication adherence, with a last known HbA1c of 7.1%. 4. Breast Cancer With Reconstruction History The patient has a history of breast reconstruction, with a persistent abdominal wound at the donor site. Concerns of necrosis at the wound site were noted. 5. Atrial Fibrillation The patient has a history of atrial fibrillation, treated with ablation therapy last year. 6. Abdominal Bulge An abdominal bulge was noted during the examination, with no immediate intervention discussed. HPI Consult Data Date of Consult: 04/25/25 HPI Narrative HPI Narrative: The patient is a 80-year-old female presenting with peripheral artery disease and associated complications. She has been experiencing rest pain in the right lower extremity and numbness in the foot, which has persisted despite medication. A right axillary-femoral bypass is scheduled, contingent on resolving her anemia. The patient has a history of anemia, with a recent hemoglobin level of 6.6 g/dL, requiring a blood transfusion. She experienced a significant gastrointestinal bleed, leading to unresponsiveness, and has had episodes of coffee ground emesis. A bone marrow biopsy is scheduled to further investigate the cause of anemia. The patient has a history of diabetes mellitus, with a last known HbA1c of 7.1%. She reports difficulty in medication adherence due to fatigue and lack of appetite. The patient underwent breast reconstruction following cancer, with the right breast reconstructed using a TRAM flap and the left with an implant. 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 She has a history of atrial fibrillation, treated with ablation therapy last year. Additionally, she has an abdominal bulge noted during the examination. ROS: - Cardiovascular: Reports rest pain in right lower extremity. Denies chest pain or palpitations. - Neurological: Reports numbness in the right foot. Denies headaches or dizziness. - Gastrointestinal: Reports coffee ground emesis and significant gastrointestinal bleed. Denies abdominal pain. - Endocrine: Reports fatigue and lack of appetite. Denies polyuria or polydipsia. Attestation: Documentation on this patient encounter was supported using ambient scribe technology/ voice AI technology. The patient consented to recording for the purpose of documenting the encounter. Provider reviewed content of the generated note prior to signature. [facility] Medical History Anemia Afib GI bleed COPD (chronic obstructive pulmonary disease) Hx of carotid stenosis Home Medications ?Medication ?Instructions ?Recorded ?Last Taken ?Type amlodipine 2.5 mg tablet 2.5 mg PO DAILY 03/01/25 Unknown History apixaban 5 mg tablet (Eliquis) 5 mg PO BID 03/01/25 Unknown History blood sugar diagnostic (Contour 03/01/25 Unknown History Next Test Strips) cyclobenzaprine 5 mg tablet 5 mg PO QHS PRN PRN muscle spasm 03/01/25 Unknown History ezetimibe 10 mg tablet 10 mg PO DAILY 03/01/25 Unknown History finerenone 10 mg tablet (Kerendia) 10 mg PO DAILY 03/01/25 Unknown History furosemide 20 mg tablet 20 mg PO QODAY 03/01/25 Unknown History icosapent ethyl 1 gram capsule 2 g PO BID 03/01/25 Unknown History (Vascepa) linagliptin 2.5 mg-metformin ER 1 tab PO BID 03/01/25 Unknown History 1,000 mg tablet,extended release 24 hr (Jentadueto XR) pantoprazole 40 mg tablet,delayed 40 mg PO DAILY 03/01/25 Unknown History release rosuvastatin 10 mg tablet 10 mg PO DAILY 03/01/25 Unknown History tiotropium bromide 2.5 2 puff inhalation DAILY 03/01/25 Unknown History mcg/actuation mist for inhalation (Spiriva Respimat) cilostazol 50 mg tablet 50 mg PO BID #60 tabs 03/09/25 Unknown Rx carvedilol 12.5 mg tablet 12.5 mg PO BID 03/11/25 Unknown History losartan 100 mg tablet 100 mg PO DAILY 03/11/25 Unknown History sertraline 25 mg tablet 25 mg PO DAILY 03/11/25 Unknown History albuterol sulfate 90 mcg/actuation 2 puff inhalation Q4H PRN 04/12/25 Unknown History aerosol inhaler (Ventolin HFA) shortness of breath or wheezing cholecalciferol (vitamin D3) 50 50 mcg PO QDAY 04/12/25 Unknown History mcg (2,000 unit) capsule clindamycin phosphate 1 % topical 1 applic topical QDAY PRN 04/12/25 Unknown History foam shortness of breath or wheezing cyanocobalamin (vitamin B-12) 1,000 mcg PO QDAY 04/12/25 Unknown History 1,000 mcg capsule ferrous sulfate 143 mg PO BID 04/12/25 Unknown History fluocinonide 0.05 % topical 1 applic topical BID PRN itching 04/12/25 Unknown History solution gabapentin 100 mg capsule 100 mg PO QHS 04/12/25 Unknown History Allergy/AdvReac Type Severity Reaction Status Date / Time blue dye Allergy Severe Anaphylaxis Verified 04/12/25 13:42 Sulfa (Sulfonamide Allergy Rash Verified 04/12/25 13:42 Antibiotics) Family History Other CVA (cerebral vascular accident) Cancer Heart disease Hypertension Kidney disease Surgical History History of cataract extraction (~2005) H/O: hysterectomy (~1998) Hx of mastectomy (~1993) Social History Smoking Status: Never smoker Physical Exam Narrative - Neurological: Right lower extremity foot numbness with intact light touch sensation, no palpable right lower extremity pulses but foot is warm. No obvious foot wounds - Abdominal: Presence of lower quadrant abdominal bulge, no scars on thighs or in the groin. She has a chronic 1 x 3 cm abdominal wound vertically oriented as noted in the pictures above. No surrounding induration. No drainage or any signs of fistula Lab / Micro Data Lab results narrative: - Labs: Hemoglobin level at 6.6 g/dL, subsequent CBC showed 8.1 g/dL - Procedures: Scheduled bone marrow biopsy on June 01 Charges/Coding Visit Charges Office Visits / Consults: 54829 OV L3 New 30min
--- NOTE | 2025-04-26 09:45 | WC ---
PHOTO-LOWER MID ABD 04/24/25
== END 2025-05-16 15:46 | disposition home or self-care (01) ==
LOC: WC 14:24
PROVIDERS: Referring Provider Surgery Plastic and Reconstructive Surgery; Visit Provider Surgery Plastic and Reconstructive Surgery
DX: I70.221 Atherosclerosis of native arteries of extremities with rest pain, right leg (principal); J44.9 Chronic obstructive pulmonary disease, unspecified; I48.91 Unspecified atrial fibrillation; E11.51 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 with diabetic peripheral angiopathy without gangrene; Z79.01 Long term (current) use of anticoagulants; Z82.49 Family history of ischemic heart disease and other diseases of the circulatory system; Z90.710 Acquired absence of both cervix and uterus; D64.9 Anemia, unspecified; Z85.3 Personal history of malignant neoplasm of breast; R20.0 Anesthesia of skin; R53.83 Other fatigue
CPT/HCPCS: 99213; G0463

== ENCOUNTER 2025-05-22 10:10 | Outpatient (RCR) | payer MEDICARE, SELFPAY ==
[2025-05-22 10:17] VITALS: BP 156/60; PULSE 94; RESP 16; TEMP 36.6
--- NOTE | 2025-05-22 11:04 | LES_PTH ---
PATIENT: ROLANDO LOVE LOC: U#:[id number] AGE/SX: 80/F ROOM: RE05/22/[address]: Dr. Akash Pham MD : [id number] BED: DIS: 05/29/2025 SPEC #: [id number] RECD: 05/22/25 15:21 STATUS: ALONZO TORIJohn #: [id number] BLAISE: 05/22/25 11:[address]: Akash Pham DEPT: SURGICAL PATHOLOGY RECD BY: Jorge Alberto Terry ENTERED: 05/22/25 15:50 SP TYPE: Lesion OTHR DR: Dr. Celia Al, DO Tissues: A - Skin of abdomen, NOS Procedures: Surgery Specimen Level IV HEADER OPERATION: Shave biopsy PRE-OP DIAGNOSIS: Abdomen wound TISSUE SUBMITTED: A- Abdomen biopsy MICROSCOPIC DIAGNOSIS A. Skin, shave biopsy: * Benign verrucous keratosis - see note. Note: Hyperkeratotic epidermis is present with scant superficial dermis included. MICROSCOPIC DESCRIPTION Slides are reviewed. GROSS DESCRIPTION A. Received in formalin labeled with the patient's name and date of . Designated as BX ABD is a 0.4 x 0.4 x 0.1 cm menendez-white skin shave. A definitive resection margin is difficult to determine grossly. Entirely submitted in 1 cassette. AR 05/22/2025 CPT:46318
--- NOTE | 2025-05-22 13:27 | PN.PCM_ITS ---
History of Present Illness Date of Service: 05/22/25 Chief Complaint: Abdominal wound History of Wound: Abdominal wound Subjective Subjective HPI Narrative: The patient is a 80-year-old female presenting with peripheral artery disease and associated complications. She has been experiencing rest pain in the right lower extremity and numbness in the foot, which has persisted despite medication. A right axillary-femoral bypass is scheduled, contingent on resolving her anemia. The patient has a history of anemia, with a recent hemoglobin level of 6.6 g/dL, requiring a blood transfusion. She experienced a significant gastrointestinal bleed, leading to unresponsiveness, and has had episodes of coffee ground emesis. A bone marrow biopsy is scheduled to further investigate the cause of anemia. The patient has a history of diabetes mellitus, with a last known HbA1c of 7.1%. She reports difficulty in medication adherence due to fatigue and lack of appetite. The patient underwent breast reconstruction following cancer, with the right breast reconstructed using a TRAM flap and the left with an implant. 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 She has a history of atrial fibrillation, treated with ablation therapy last year. Additionally, she has an abdominal bulge noted during the examination. ROS: - Cardiovascular: Reports rest pain in right lower extremity. Denies chest pain or palpitations. - Neurological: Reports numbness in the right foot. Denies headaches or dizziness. - Gastrointestinal: Reports coffee ground emesis and significant gastrointestinal bleed. Denies abdominal pain. - Endocrine: Reports fatigue and lack of appetite. Denies polyuria or polydipsia. Attestation: Documentation on this patient encounter was supported using ambient scribe technology/ voice AI technology. The patient consented to recording for the purpose of documenting the encounter. Provider reviewed content of the generated note prior to signature. Current encounter, 22 May 2025: I reviewed the CT scan with Dr. Harp from general surgery and he and I deemed it safe for a biopsy of the wound today in clinic (superficial wedge biopsy). I talked to the patient about the risks, benefits, and alternatives to the biopsy and she elected to proceed. Objective Data Objective Data Vital Signs: Vital Signs Temp Pulse Resp BP O2 Del Method 97.8 F 94 16 156/60 H Room Air 05/22/25 10:17 05/22/25 10:17 05/22/25 10:17 05/22/25 10:17 05/22/25 10:17 Oxygen Delivery Method Room Air Charges/Coding Procedures Integumentary [id number]: [id number] Incal bx skn single les Physical Exam Narrative - Neurological: Right lower extremity foot numbness with intact light touch sensation, no palpable right lower extremity pulses but foot is warm. No obvious foot wounds - Abdominal: Presence of lower quadrant abdominal bulge, no scars on thighs or in the groin. She has a persistent chronic 1 x 3 cm abdominal wound vertically oriented as noted in the pictures above. No surrounding induration. No drainage or any signs of fistula Debridement Note Debridement Note Post-Debridement Measurements and Additional Note: Post-Debridement Measurements/Treatment WC - Nurse 1 - General Ulcer Assessment Start: 05/22/25 10:17 Freq: Status: Active Protocol: ERINN Activity Type Activity Date Activity User E-sign Co-sign Detail Recorded Client Recorded Date Recorded By Document 05/22/25 10:17 [id number] 05/22/25 10:23 05/22/25 10:17 WC - Today's Visit Information Type of service Initial Visit Arrival Mode Ambulatory Patient Identification Verified (Name & Yes ) Vital Signs Temperature (97.8 F-99.1 F) 97.8 F Temperature Source Oral Pulse Rate (60-100) 94 Pulse Location Monitor Respiratory Rate (12-18) 16 Respiratory rate source Observation Oxygen Delivery Method Room Air Blood Pressure (90/60-120/80) 156/60 H Blood Pressure Mean (mm Hg) 92 Source Monitor Position Sitting Blood Pressure Location Right Arm Pain Scale: 0-10 Numeric Is Patient Pain Free? Yes WC - Nurse 1 - General Ulcer Measurement Start: 05/22/25 10:17 Freq: Status: Active Protocol: Activity Type Activity Date Activity User E-sign Co-sign Detail Recorded Client Recorded Date Recorded By Document 05/22/25 10:17 [id number] 05/22/25 10:23 05/22/25 10:17 Wound Center Nurse 1 #2 LOWER MID ABD -Current Size (cm) - Length 0.1 -Current Size (cm) - Width 0.1 -Current Size (cm) - Depth 0.1 -Total Square Cm 0.01 -Date of Last Picture (Recall this 05/22/25 field) -Photo Taken Yes -Wound Comment(s) THis is a surgical preop appointment EDUARD - Nurse 2 - General Ulcer CM Notes Start: 05/22/25 10:17 Freq: Status: Active Protocol: Activity Type Activity Date Activity User E-sign Co-sign Detail Recorded Client Recorded Date Recorded By Document 05/22/25 11:05 DS [id number] 05/22/25 11:07 DS 05/22/25 11:05 Wound Center Nurse 2 -Time 11:05 -Correct Patient Yes -Correct Side, Site, Position Yes -Correct Procedure Yes -Procedure Performed Yes -Type of Procedure Biopsy -Wound/Ulcer Outcome Not Healed -Injectable Lidocaine (%) 1 -Lidocaine (ml) 10 -Bleeding Controlled with Pressure -Treatment Response Procedure Tolerated Well -I&D / Paring / Biopsy Tangential bx skin (eg:shave, scoop, saucerize, curette), single lesion Pain Scale: 0-10 Numeric Is Patient Pain Free? Yes WC - Nurse 3 - General Ulcer D/C NN Start: 05/22/25 10:17 Freq: Status: Active Protocol: Activity Type Activity Date Activity User E-sign Co-sign Detail Recorded Client Recorded Date Recorded By Document 05/22/25 11:07 DS [id number] 05/22/25 11:07 DS 05/22/25 11:07 Wound Care Center Nurse 3 #2 LOWER MID ABD -Primary Dressing Applied C Hydrogel -Other Dressing band aide -Hydrogel 1 Pain Scale: 0-10 Numeric Is Patient Pain Free? Yes Assessment/Plan Assessment/Plan (1) Skin ulcer of abdomen: CODE(S): L98.499 - Non-pressure chronic ulcer of skin of other sites with unspecified severity PLAN: Consent obtained 1 cc of lidocaine with epinephrine was injected at the inferior aspect of the wound 15 blade scalpel was used to take a full-thickness skin wedge biopsy at the 6:00 area of the wound including some of the ulcer and some of the normal skin adjacent to the ulcer. It was sent to pathology in formalin. Hydrogel and a Band-Aid were applied Patient will change the dressings with hydrogel daily for now and we will follow-up with her about the biopsy results (2) Atherosclerosis of right lower extremity with rest pain: CODE(S): I70.221 - Atherosclerosis of [place] arteries of extremities with rest pain, right leg QUALIFIERS: Peripheral atherosclerosis artery type: [place] artery Qualified Code(s): I70.221 - Atherosclerosis of [place] arteries of extremities with rest pain, right leg PLAN: Again today I talked to the patient about potential donor muscles for muscle flap reconstruction especially in the groin, or as needed in the abdomen. We talked about vastus lateralis flaps, rectus femoris flaps, and sartorius flaps. I talked about the risks of flap failure including necrosis of the muscle and need for revision surgery. I talked to her about the potential risks of bleeding, damage to surrounding structures (especially nerves), infection, wound dehiscence and need for wound care, and the risks of anesthesia including stroke, VTE, and . I spoke to her further more about extensor lag and possibly persistent extensor lag and need for rehabilitation. We also talked about local soft tissue rearrangement/adjacent tissue transfer, and she agreed. He understands the risks of flap and tissue necrosis and need for revision surgeries. She also understands the risks of increased operative time. She understands the risks, benefits, and alternatives to reconstruction over the bypass, and assistance with vascular surgery. She elects to proceed.
--- NOTE | 2025-05-23 11:34 | WC ---
PHOTO-ABD 05/22/25
--- NOTE | 2025-05-23 11:36 | WC ---
[id number] [facility] 05/22/25
== END 2025-05-29 10:25 | disposition home or self-care (01) ==
LOC: WC 10:10
PROVIDERS: PCP Student in an Organized Health Care Education/Training Program; Referring Provider Surgery Plastic and Reconstructive Surgery; Visit Provider Surgery Plastic and Reconstructive Surgery
DX: I70.221 Atherosclerosis of native arteries of extremities with rest pain, right leg (principal); I48.91 Unspecified atrial fibrillation; E11.51 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 with diabetic peripheral angiopathy without gangrene; D64.9 Anemia, unspecified; Z79.01 Long term (current) use of anticoagulants; Z82.49 Family history of ischemic heart disease and other diseases of the circulatory system; Z90.710 Acquired absence of both cervix and uterus; Z85.3 Personal history of malignant neoplasm of breast; R53.83 Other fatigue; R60.0 Localized edema
CPT/HCPCS: 11102; 88305

== ENCOUNTER 2025-06-06 14:55 | Inpatient (IN) | payer MEDICARE, SELFPAY ==
--- NOTE | 2025-05-25 12:48 | PAT.ANE_ITS ---
Pre-Assessment Diagnosis/Proposed Procedure Planned Operative Procedure(s): (R) Right Axillary Femoral Bypass, Right Sartorius Flaps Anesthesia History Anesthesia History - church administrator: Anesthesia History - church administrator Hx Hospitalization Yes: 05/2024 AFIB CHF, 05/19/25 09:44 2024 GI BLEED Any Problems With Anesthesia No: TAKES A WHILE TO WAKE UP 05/19/25 09:44 FROM Cholinesterase deficiency No 05/19/25 09:44 You/Your Family Experience No 05/19/25 09:44 fever (hyperthermia) with Relationship Recent Exposure to Contagious Disease Does patient have nerve No 05/19/25 09:44 stimulator Patient instructed to have device shut off --Does patient have Pacemaker or ICD? When Was Last Pacemaker Check QUESTION #4 FULL TEXT: You/Your Family Experience fever (hyperthermia) with Anesthesia Last Oral Intake Last Oral intake: Last Oral Intake NPO since Meds taken in AM with sips of water? Meds patient instructed to take am of surgery PONV PONV - church administrator: PONV - church administrator Female Yes 05/19/25 09:44 HX of Motion Sickness No 05/19/25 09:44 HX of N/V After Surgery No 05/19/25 09:44 Non-Smoker Yes 05/19/25 09:44 Duration of Surgery greater Yes 05/19/25 09:44 than 60 minutes Number of Risk Factors 3 05/19/25 09:44 PONV Score Moderate Risk 05/19/25 09:44 Height & Weight Height & Weight: Anesthesia: Height & Weight Height 5 ft 7 in 03/11/25 18:52 Respiratory Assessment Respiratory Assessment - church administrator: Respiratory Tract Infection Hx - church administrator Hx Respiratory Tract Infection No 05/19/25 09:44 STOP Sleep Apnea STOP Sleep Apnea - church administrator: STOP Sleep Apnea - church administrator Hx Hypertension Yes 05/19/25 09:44 Hx Sleep Apnea Yes 05/19/25 09:44 CPAP No 05/19/25 09:44 BIPAP Yes 05/19/25 09:44 Do you snore loudly (louder than talking or can be heard Do you often feel tired/ fatigued/ sleepy during daytime? Has anyone observed you stop breathing during sleep? STOP Results Positive 05/19/25 09:44 QUESTION #5 FULL TEXT : Do you snore loudly (louder than talking or can be heard through closed doors)? Tobacco Use History Tobacco Use History - church administrator: Tobacco Use History - church administrator Tobacco Use Smoking Status Former smoker 05/19/25 09:44 Hx Tobacco Use No 05/19/25 09:44 Years Smoking Packs Smoked per Day Smoking Cessation Date was No - quit smoking greater 05/19/25 09:44 within the last 15 years than 15 years ago Hx Smoking Cessation Date Hx Smoking Cessation Counseling Hematologic Medial History Hematologic Hx - church administrator: Hematologic Medical Hx - lens cleaner Hx of Blood Transfusion Yes 05/19/25 09:44 Hx of Transfusion in last 3 Yes 05/19/25 09:44 Months Date of Last Transfusion (if 04/14/25 05/19/25 09:44 within last 3 months) Ever experience any problems No 05/19/25 09:44 with transfusion(s)? Specify any problems Hx of Preganancy in last 3 No 05/19/25 09:44 Months Nurse Filling Out Transfusion [email or web address] 05/19/25 09:44 & Questions: Date: 05/19/25 05/19/25 09:44 Time: 09:49 05/19/25 09:44 Patient unable to answer at this time (ie. confused, unrespo /Reproduction History /Reproductive History - church administrator: /Reproductive Hx- church administrator Hx Now No 05/19/25 09:44 Gestational Age (in weeks): EDC: Hx Hx Para Hx Section SAB No 05/19/25 09:44 [facility] Medical History (Updated 05/19/25 @ 10:08 by La Crowder) Neuropathy Wears partial dentures Post-menopausal Cancer Depression Anxiety Alcohol use Diabetes Ambulates with cane Arthritis Gout History of renal disease Excessive bleeding High cholesterol Low iron Anemia Back pain History of hiatal hernia Hypertension History of GI bleed Gastric reflux Former smoker BiPAP (biphasic positive airway pressure) dependence Chronic cough Leg cramps History of edema History of echocardiogram History of stress test History of atrial fibrillation Cardiology follow-up encounter History of CHF (congestive heart failure) Anemia Afib GI bleed COPD (chronic obstructive pulmonary disease) Hx of carotid stenosis Home Medications ?Medication ?Instructions ?Recorded ?Last Taken ?Type amlodipine 2.5 mg tablet 2.5 mg PO DAILY HTN 03/01/25 Unknown History apixaban 5 mg tablet (Eliquis) 5 mg PO BID BLOOD THINN ER 03/01/25 Unknown History blood sugar diagnostic (Contour 03/01/25 Unknown Hist ory Next Test Strips) cyclobenzaprine 5 mg tablet 5 mg PO QHS PRN PRN muscle spasm 03/01/25 Unknown History ezetimibe 10 mg tablet 10 mg PO DAILY HLD 03/01/25 Unknown History finerenone 10 mg tablet (Kerendia) 10 mg PO DAILY CKD 03/01/25 Unknown History furosemide 20 mg tablet 20 mg PO QODAY WATER PILL Unknown History icosapent ethyl 1 gram capsule 2 g PO BID HLD 03/01/25 Unknown History (Vascepa) linagliptin 2.5 mg-metformin ER 1 tab PO BID DM Unknown History 1,000 mg tablet,extended release 24 hr (Jentadueto XR) pantoprazole 40 mg tablet,delayed 40 mg PO DAILY GERD 03/01/25 Unknown History release rosuvastatin 10 mg tablet 10 mg PO DAILY HLD 03/01/25 Unknown History tiotropium bromide 2.5 2 puff inhalation DAILY LUNG 03/01/25 Unknown History mcg/actuation mist for inhalation DISEASE (Spiriva Respimat) cilostazol 50 mg tablet 50 mg PO BID PAD #60 tabs Unknown Rx carvedilol 12.5 mg tablet 12.5 mg PO BID HTN 03/11/25 Unknown History losartan 100 mg tablet 100 mg PO DAILY HTN 03/11/25 Unknown History sertraline 25 mg tablet 25 mg PO DAILY MOOD 03/11/25 Unknown History albuterol sulfate 90 mcg/actuation 2 puff inhalation Q 4H PRN 04/12/25 Unknown History aerosol inhaler (Ventolin HFA) shortness of breath or wheezing cholecalciferol (vitamin D3) 50 50 mcg PO QDAY SUPPLEM ENT 04/12/25 Unknown History mcg (2,000 unit) capsule clindamycin phosphate 1 % topical 1 applic topical QDA Y PRN itching 04/12/25 Unknown History foam fluocinonide 0.05 % topical 1 applic topical BID PRN i tching 04/12/25 Unknown History solution cyanocobalamin (vitamin B-12) 1,000 mcg IM QMONTH SUPP LEMENT 05/19/25 Unknown History 1,000 mcg/mL injection solution ferrous sulfate 137 mg (45 mg 137 mg PO DAILY SUPPLEME NT 05/19/25 Unknown History iron) tablet,extended release (Slow Fe) Allergy/AdvReac Type Severity Reaction Status Date / Time isosulfan blue Allergy Severe Anaphylaxis Verified 05/19/25 09:16 Sulfa (Sulfonamide Allergy Rash Verified 05/19/25 09:16 Antibiotics) Family History Other CVA (cerebral vascular accident) Cancer Heart disease Hypertension Kidney disease Surgical History (Updated 05/19/25 @ 09:43 by La Crowder) History of left mastectomy History of right mastectomy History of esophagogastroduodenoscopy (EGD) History of bronchoscopy History of cardiac ablation History of carotid endarterectomy History of bilateral breast reduction surgery History of colonoscopy History of cataract extraction (~2005) H/O: hysterectomy (~1998) Social History Smoking Status: Former smoker Audit: Pertinent Findings Pertinent Findings EKG Perinent findings: 04/15/2025. Sinus tachycardia 127 bpm. Stress test pertinent findings: 01/16/2025. Essentially negative. Echo (EF%) pertinent findings: 08/05/2024. EF 55%. Aortic valve mild regurgitation. Mild stenosis of aortic valve. Gradient 7 mmHg. Right ventricular systolic pressure 72. Consult pertinent findings: Cardiology [facility]. 2023. Tachycardia mediated class I heart failure. EF 55% normal wall motion. Increased filling pressures. 2+ mitral regurg. Continue Lasix every day and as needed. Paroxysmal atrial fibrillation. Had ablation of atypical atrial flutter 05/06/2024. Still on Eliquis and Coreg in April 2024. Essential hypertension. Stable reasonably controlled. Monitor. CKD D stage G8/A3. No issues. Diabetic related disease. Recommendation Anesthesia Recommendation Anesthesia recommendation: OPTIMIZED for anesthesia
[2025-05-31 13:52] LABS: Hematocrit 31.1 % (37-47); Hemoglobin 9.3 g/dL (12.0-15.0); Immature Granulocytes Count 0.010 X10^3/uL (0.0-0.0); Mean Corp Hgb Conc 29.9 g/dL (32-36); Mean Corpuscular Volume 88.9 fL (81-99); Mean Platelet Vol. 9.2 fl (6.2-12.0); NRBC Flagged by Analyzer 0 % (0-5); Platelet Count 229 K/mm3 (150-450); RBC Distribution Width CV 18.7 % (11.6-14.6); RBC Distribution Width SD 59.8 fl (35.1-43.9); Red Blood Count 3.50 M/mm3 (4.2-5.4); White Blood Count 4.7 K/mm3 (4.4-11.0)
[2025-05-31 14:00] LABS: Prothrombin Time (Protime)PT. 18.0 SECONDS (11.7-14.9)
[2025-05-31 14:01] LABS: Partial Thromboplast Time 37.2 Seconds (24.1-36.2)
[2025-05-31 14:32] LABS: Anion Gap 11 (5-15); BUN 14 mg/dL (4-19); BUN/Creat Ratio 16.5 RATIO (10-20); Calcium,Total 9.1 mg/dL (7.6-11.0); Carbon Dioxide 22.1 mmol/L (21.0-32.0); Chloride 103 mmol/L (98-108); Glucose 158 mg/dL (70-99); Potassium 4.7 mmol/L (3.3-5.1)
[2025-05-31 14:33] LABS: AST(SGOT) 25 U/L (<=31); Alanine Aminotransfer ALT/SGPT 13 U/L (<=34); Albumin, Serum 4.0 g/dL (3.4-4.8); Alkaline Phosphatase 55 U/L (35-104); Bilirubin, Direct 0.20 mg/dL (0.00-0.30); Globulin 3.1 g/dL (2.2-4.2)
--- NOTE | 2025-06-01 15:44 | PAT.ANE_ITS ---
Pre-Assessment Diagnosis/Proposed Procedure Planned Operative Procedure(s): (R) Right Axillary Femoral Bypass, Right Sartorius Flaps Anesthesia History Anesthesia History - salary and wage administrator: Anesthesia History - salary and wage administrator Hx Hospitalization Yes: 05/2024 AFIB CHF, 05/19/25 09:44 2024 GI BLEED Any Problems With Anesthesia No: TAKES A WHILE TO WAKE UP 05/19/25 09:44 FROM Cholinesterase deficiency No 05/19/25 09:44 You/Your Family Experience No 05/19/25 09:44 fever (hyperthermia) with Relationship Recent Exposure to Contagious Disease Does patient have nerve No 05/19/25 09:44 stimulator Patient instructed to have device shut off --Does patient have Pacemaker or ICD? When Was Last Pacemaker Check QUESTION #4 FULL TEXT: You/Your Family Experience fever (hyperthermia) with Anesthesia Last Oral Intake Last Oral intake: Last Oral Intake NPO since Meds taken in AM with sips of water? Meds patient instructed to take am of surgery PONV PONV - salary and wage administrator: PONV - salary and wage administrator Female Yes 05/19/25 09:44 HX of Motion Sickness No 05/19/25 09:44 HX of N/V After Surgery No 05/19/25 09:44 Non-Smoker Yes 05/19/25 09:44 Duration of Surgery greater Yes 05/19/25 09:44 than 60 minutes Number of Risk Factors 3 05/19/25 09:44 PONV Score Moderate Risk 05/19/25 09:44 Height & Weight Height & Weight: Anesthesia: Height & Weight Height 5 ft 7 in 03/11/25 18:52 Respiratory Assessment Respiratory Assessment - salary and wage administrator: Respiratory Tract Infection Hx - salary and wage administrator Hx Respiratory Tract Infection No 05/19/25 09:44 STOP Sleep Apnea STOP Sleep Apnea - salary and wage administrator: STOP Sleep Apnea - salary and wage administrator Hx Hypertension Yes 05/19/25 09:44 Hx Sleep Apnea Yes 05/19/25 09:44 CPAP No 05/19/25 09:44 BIPAP Yes 05/19/25 09:44 Do you snore loudly (louder than talking or can be heard Do you often feel tired/ fatigued/ sleepy during daytime? Has anyone observed you stop breathing during sleep? STOP Results Positive 05/19/25 09:44 QUESTION #5 FULL TEXT : Do you snore loudly (louder than talking or can be heard through closed doors)? 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 Specify any problems Hx of Preganancy in last 3 No 05/19/25 09:44 Months Nurse Filling Out Transfusion [email or web address] 05/19/25 09:44 & Questions: Date: 05/19/25 05/19/25 09:44 Time: 09:49 05/19/25 09:44 Patient unable to answer at this time (ie. confused, unrespo /Reproduction History /Reproductive History - salary and wage administrator: /Reproductive Hx- salary and wage administrator Hx Now No 05/19/25 09:44 Gestational Age (in weeks): EDC: Hx Hx Para Hx Section SAB No 05/19/25 09:44 PFSH Medical History (Updated 05/26/25 @ 11:03 by MEIR Myrick) Neuropathy Wears partial dentures Post-menopausal Cancer Depression Anxiety Alcohol use Diabetes Ambulates with cane Arthritis Gout History of renal disease Excessive bleeding High cholesterol Low iron Anemia Back pain History of hiatal hernia Hypertension History of GI bleed Gastric reflux Former smoker BiPAP (biphasic positive airway pressure) dependence Chronic cough Leg cramps History of edema History of echocardiogram History of stress test History of atrial fibrillation Cardiology follow-up encounter History of CHF (congestive heart failure) Anemia Afib GI bleed COPD (chronic obstructive pulmonary disease) Hx of carotid stenosis Home Medications ?Medication ?Instructions ?Recorded ?Last Taken ?Type amlodipine 2.5 mg tablet 2.5 mg PO DAILY HTN 03/01/25 Unknown History apixaban 5 mg tablet (Eliquis) 5 mg PO BID BLOOD THINN ER 03/01/25 Unknown History blood sugar diagnostic (Contour 03/01/25 Unknown Hist ory Next Test Strips) cyclobenzaprine 5 mg tablet 5 mg PO QHS PRN PRN muscle spasm 03/01/25 Unknown History ezetimibe 10 mg tablet 10 mg PO DAILY HLD 03/01/25 Unknown History finerenone 10 mg tablet (Kerendia) 10 mg PO DAILY CKD 03/01/25 Unknown History furosemide 20 mg tablet 20 mg PO QODAY WATER PILL Unknown History icosapent ethyl 1 gram capsule 2 g PO BID HLD 03/01/25 Unknown History (Vascepa) linagliptin 2.5 mg-metformin ER 1 tab PO BID DM Unknown History 1,000 mg tablet,extended release 24 hr (Jentadueto XR) pantoprazole 40 mg tablet,delayed 40 mg PO DAILY GERD 03/01/25 Unknown History release rosuvastatin 10 mg tablet 10 mg PO DAILY HLD 03/01/25 Unknown History tiotropium bromide 2.5 2 puff inhalation DAILY LUNG 03/01/25 Unknown History mcg/actuation mist for inhalation DISEASE (Spiriva Respimat) cilostazol 50 mg tablet 50 mg PO BID PAD #60 tabs Unknown Rx carvedilol 12.5 mg tablet 12.5 mg PO BID HTN 03/11/25 Unknown History losartan 100 mg tablet 100 mg PO DAILY HTN 03/11/25 Unknown History sertraline 25 mg tablet 25 mg PO DAILY MOOD 03/11/25 Unknown History albuterol sulfate 90 mcg/actuation 2 puff inhalation Q 4H PRN 04/12/25 Unknown History aerosol inhaler (Ventolin HFA) shortness of breath or wheezing cholecalciferol (vitamin D3) 50 50 mcg PO QDAY SUPPLEM ENT 04/12/25 Unknown History mcg (2,000 unit) capsule clindamycin phosphate 1 % topical 1 applic topical QDA Y PRN itching 04/12/25 Unknown History foam fluocinonide 0.05 % topical 1 applic topical BID PRN i tching 04/12/25 Unknown History solution cyanocobalamin (vitamin B-12) 1,000 mcg IM QMONTH SUPP LEMENT 05/19/25 Unknown History 1,000 mcg/mL injection solution ferrous sulfate 137 mg (45 mg 137 mg PO DAILY SUPPLEME NT 05/19/25 Unknown History iron) tablet,extended release (Slow Fe) Allergy/AdvReac Type Severity Reaction Status Date / Time isosulfan blue Allergy Severe Anaphylaxis Verified 05/29/25 11:35 Sulfa (Sulfonamide Allergy Rash Verified 05/29/25 11:35 Antibiotics) Family History Other CVA (cerebral vascular accident) Cancer Heart disease Hypertension Kidney disease Surgical History (Updated 05/19/25 @ 09:43 by La Crowder) History of left mastectomy History of right mastectomy History of esophagogastroduodenoscopy (EGD) History of bronchoscopy History of cardiac ablation History of carotid endarterectomy History of bilateral breast reduction surgery History of colonoscopy History of cataract extraction (~2005) H/O: hysterectomy (~1998) Social History Smoking Status: Former smoker Audit: Pertinent Findings HISTORY of Pertinent Findings History of Pertinent Findings: EKG Pertinent Findings EKG Perinent findings 04/15/2025. Sinus 05/25/25 12:54 tachycardia 127 bpm. Stress Test Pertinent Findings Stress test pertinent findings 01/16/2025. Essentially 05/25/25 12:54 negative. Echo Pertinent Findings Echo (EF%) pertinent findings 08/05/2024. EF 55%. Aortic 05/25/25 12:54 valve mild regurgitation. Mild stenosis of aortic valve. Gradient 7 mmHg. Right ventricular systolic pressure 72. Consult Pertinent Findings Consult pertinent findings Cardiology [facility] 05/25/25 12:54 . 2023. Tachycardia mediated class I heart failure. EF 55% normal wall motion. Increased filling pressures. 2+ mitral regurg . Continue Lasix every day and as needed. Paroxysmal atrial fibrillation. Had ablation of atypical atrial flutter 05/06/2024. Still on Eliquis and Coreg in April 2024. Essential hypertension. Stable reasonably controlled. Monitor. CKD D stage G8/A3. No issues. Diabetic related disease. Pertinent Findings Additional pertinent findings: CBC resulted on 05/31/2025 with H&H 9.3/31.1 from previous H&H of 6.2/20.9 on 03/11/2025 Recommendation Anesthesia Recommendation Anesthesia recommendation: OPTIMIZED for anesthesia
[2025-06-06] VITALS (29 sets, daily range): BP systolic 135–188; BP diastolic 51–120; PULSE 69–88; RESP 10–18; TEMP 36.1–37.6; O2SAT 89–100; BMI 19.6; BMI 21.4
[2025-06-06] MEDS: Lactated Ringers 1,000 ML 15 ML IV (06:36)
--- NOTE | 2025-06-06 06:52 | PCM.PRE.AN2 ---
ASA Classification* ASA Classification ASA Classification: 3 Assessment & Plan Anesthesia* Anesthesia Assessment Anesthesia Assessment: Discussed sedation and/or anesthesia options, risks, benefits, and alternatives with patient/parents/legal guardian/POA. Questions invited. The patient/parents/legal guardian/POA seems to understand and agrees to proceed with anesthesia plan. Reviewed the physical assessment, medical history, allergy history and patient home medications list prior to surgery/procedure/anesthetic and documented any changes. Performed airway and anesthesia risk assessments. Anesthesia Type Anesthesia Type: General (Patient has mild aortic stenosis. Avoid high heart rates and low blood pressures. Phenylephrine is drug of choice. 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 Make sure her neck is returned to neutral position after intubation.) History Source History Obtained from:: Patient and Chart Anesthesia Focused Assessment* Temperature: 99.7 F Pulse Rate: 88 Blood Pressure: 188/63 Respiratory Rate: 12 Pulse Ox: 97 Oxygen Delivery Method: Room Air Airway Assessment Mouth opens: >3 cm Mallampati Score: I Teeth Condition: Caps/Crowns (Patient has several crowns. They all tight.) Neck Range of motion (ROM): Limited ROM (Slight Decrease) Labs Anesthesia Preop lab: CBC WBC, (4.4-11.0) 4.7 K/mm3 05/31/25, 13:23 RBC, (4.2-5.4) 3.50 M/mm3 L 05/31/25, 13:23 Hgb, (12.0-15.0) 9.3 g/dL L 05/31/25, : Hct, (37-47) 31.1 % L 05/31/25, 13:23 Plt Count, (150-450) 229 K/mm3 05/31/25, 13:23 CHEMISTRY Potassium, (3.3-5.1) 4.7 mmol/L 05/31/25, 13:23 Sodium, (133-145) 136 mmol/L 05/31/25, :23 BUN, (4-19) 14 mg/dL 05/31/25, 13:23 Creatinine, (0.70-1.20) 0.85 mg/dL 05/31/25, : Glucose, (70-99) 158 mg/dL H 05/31/25, :23 COAG PT, (11.7-14.9) 18.0 SECONDS H 05/31/25, 13:23 Pre-Assessment Diagnosis/Proposed Procedure Planned Operative Procedure(s): (R) Right Axillary Femoral Bypass, Right Sartorius Flaps Anesthesia History 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 When Was Last Pacemaker Check QUESTION #4 FULL TEXT: You/Your Family Experience fever (hyperthermia) with Anesthesia Last Oral Intake Last Oral intake: Last Oral Intake NPO since 01:30 06/06/25 06:29 Meds taken in AM with sips of Yes 06/06/25 06:29 water? 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 Female Yes 05/19/25 09:44 HX of Motion Sickness No 05/19/25 09:44 HX of N/V After Surgery No 05/19/25 09:44 Non-Smoker Yes 05/19/25 09:44 Duration of Surgery greater Yes 05/19/25 09:44 than 60 minutes Number of Risk Factors 3 05/19/25 09:44 PONV Score Moderate Risk 05/19/25 09:44 Height & Weight Height & Weight: Anesthesia: Height & Weight Height 5 ft 7 in 06/06/25 06:29 Weight: 57 kg 06/06/25 06:29 Body Mass Index (BMI) 19.6 06/06/25 06:29 Respiratory Assessment Respiratory Assessment - 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 Has anyone observed you stop breathing during sleep? STOP Results Positive 05/19/25 09:44 QUESTION #5 FULL TEXT : Do you snore loudly (louder than talking or can be heard through closed doors)? 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 Specify any problems Hx of Preganancy in last 3 No 05/19/25 09:44 Months Nurse Filling Out Transfusion MGRIFFITH 05/19/25 09:44 & Questions: Date: 05/19/25 05/19/25 09:44 Time: 09:49 05/19/25 09:44 Patient unable to answer at this time (ie. 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: /Reproductive Hx- wire frame lampshade maker Hx Now No 05/19/25 09:44 Gestational Age (in weeks): EDC: Hx Hx Para Hx Section SAB No 05/19/25 09:44 Active Medications Active Medications: Current Medications Generic Name Dose Route Start Last Admin Trade Name Freq PRN Reason Stop Dose Admin Cefazolin Sodium 2 gm/ Sodium 110 mls @ 200 mls/hr 06/06/25 07:30 Chloride IV 06/06/25 08:02 INTRAOP ONE Lactated Ringer's 1,000 mls @ 15 mls/hr 06/06/25 06:00 06/06/25 06:36 IV 15 mls/hr .Q48H ALEXI Administration PFSH Medical History (Updated 05/26/25 @ 11:03 by MEIR Myrick) Neuropathy Wears partial dentures Post-menopausal Cancer Depression Anxiety Alcohol use Diabetes Ambulates with cane Arthritis Gout History of renal disease Excessive bleeding High cholesterol Low iron Anemia Back pain History of hiatal hernia Hypertension History of GI bleed Gastric reflux Former smoker BiPAP (biphasic positive airway pressure) dependence Chronic cough Leg cramps History of edema History of echocardiogram History of stress test History of atrial fibrillation Cardiology follow-up encounter History of CHF (congestive heart failure) Anemia Afib GI bleed COPD (chronic obstructive pulmonary disease) Hx of carotid stenosis Home Medications ?Medication ?Instructions ?Recorded ?Last Taken ?Type amlodipine 2.5 mg tablet 2.5 mg PO DAILY HTN 03/01/25 06/06/25 History apixaban 5 mg tablet (Eliquis) 5 mg PO BID BLOOD THINNER 03/01/25 06/03/25 History blood sugar diagnostic (Contour 03/01/25 Unknown History Next Test Strips) ezetimibe 10 mg tablet 10 mg PO DAILY HLD 03/01/25 06/06/25 History finerenone 10 mg tablet (Kerendia) 10 mg PO DAILY CKD 03/01/25 06/06/25 History furosemide 20 mg tablet 20 mg PO QODAY WATER PILL 03/01/25 Unknown History icosapent ethyl 1 gram capsule 2 g PO BID HLD 03/01/25 06/05/25 History (Vascepa) linagliptin 2.5 mg-metformin ER 1 tab PO BID DM 03/01/25 06/03/25 History 1,000 mg tablet,extended release 24 hr (Jentadueto XR) pantoprazole 40 mg tablet,delayed 40 mg PO DAILY GERD 03/01/25 06/06/25 History release rosuvastatin 10 mg tablet 10 mg PO DAILY HLD 03/01/25 06/05/25 History tiotropium bromide 2.5 2 puff inhalation DAILY LUNG 03/01/25 06/05/25 History mcg/actuation mist for inhalation DISEASE (Spiriva Respimat) cilostazol 50 mg tablet 50 mg PO BID PAD #60 tabs 03/09/25 06/06/25 Rx carvedilol 12.5 mg tablet 12.5 mg PO BID HTN 03/11/25 06/06/25 History losartan 100 mg tablet 100 mg PO DAILY HTN 03/11/25 06/06/25 History sertraline 25 mg tablet 25 mg PO DAILY MOOD 03/11/25 06/05/25 History albuterol sulfate 90 mcg/actuation 2 puff inhalation Q4H PRN 04/12/25 06/05/25 History aerosol inhaler (Ventolin HFA) shortness of breath or wheezing cholecalciferol (vitamin D3) 50 50 mcg PO QDAY SUPPLEMENT 04/12/25 Unknown History mcg (2,000 unit) capsule clindamycin phosphate 1 % topical 1 applic topical QDAY PRN itching 04/12/25 Unknown History foam fluocinonide 0.05 % topical 1 applic topical BID PRN itching 04/12/25 Unknown History solution ferrous sulfate 137 mg (45 mg 137 mg PO DAILY SUPPLEMENT 05/19/25 06/06/25 History iron) tablet,extended release (Slow Fe) Allergy/AdvReac Type Severity Reaction Status Date / Time isosulfan blue Allergy Severe Anaphylaxis Verified 06/06/25 06:25 methylene blue Allergy Severe Anaphylaxis Verified 06/06/25 06:44 Sulfa (Sulfonamide Allergy Rash Verified 06/06/25 06:25 Antibiotics) Family History Other CVA (cerebral vascular accident) Cancer Heart disease Hypertension Kidney disease Surgical History (Updated 05/19/25 @ 09:43 by La Crowder) History of left mastectomy History of right mastectomy History of esophagogastroduodenoscopy (EGD) History of bronchoscopy History of cardiac ablation History of carotid endarterectomy History of bilateral breast reduction surgery History of colonoscopy History of cataract extraction (~2005) H/O: hysterectomy (~1998) Social History Smoking Status: Never smoker Review of Systems (Anesthesia) ROS Narrative System reviewed and no additional complaints, except as documented.
--- NOTE | 2025-06-06 07:15 | HP.PCM_ITS ---
HPI - General General Date of Admission: 06/06/25 HPI Narrative ROLANDO LOVE, is a 80 F who presents today for reconstruction over right axillary-femoral bypass, and assistance with vascular surgery. HPI from 04/25/25: Patient is a 80-year-old female presenting with peripheral artery disease and associated complications. She has been experiencing rest pain in the right lower extremity and numbness in the foot, which has persisted despite medication. A right axillary-femoral bypass is scheduled, contingent on resolving her anemia. The patient has a history of anemia, with a recent hemoglobin level of 6.6 g/dL, requiring a blood transfusion in February,. She experienced a significant gastrointestinal bleed, leading to unresponsiveness, and has had episodes of coffee ground emesis. A bone marrow biopsy is scheduled to further investigate the cause of anemia. The patient has a history of diabetes mellitus, with a last known HbA1c of 7.1%. She reports difficulty in medication adherence due to fatigue and lack of appetite. The patient underwent breast reconstruction following cancer, with the right breast reconstructed using a TRAM flap and the left with an implant. 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 She has a history of atrial fibrillation, treated with ablation therapy last year. Additionally, she has an abdominal bulge noted during the examination. She underwent biopsy of her chronic abdominal wound which returned as Benign verrucous keratosis. Her Hgb on 05/31/25 is 9.3. She ROS: - Cardiovascular: Reports rest pain in right lower extremity. Denies chest pain or palpitations. - Neurological: Reports numbness in the right foot and posterior calf since January, reports tingling in left toes. Admits peripheral neuropathy. Denies headaches or dizziness. - Endocrine: Reports fatigue and lack of appetite. Denies polyuria or polydipsia. [facility] Medical History (Updated 06/06/25 @ 07:26 by MEIR Tomas) Neuropathy Wears partial dentures Post-menopausal Cancer Depression Anxiety Alcohol use Diabetes Ambulates with cane Arthritis Gout History of renal disease Excessive bleeding High cholesterol Low iron Anemia Back pain History of hiatal hernia Hypertension History of GI bleed Gastric reflux Former smoker BiPAP (biphasic positive airway pressure) dependence Chronic cough Leg cramps History of edema History of echocardiogram History of stress test History of atrial fibrillation Cardiology follow-up encounter History of CHF (congestive heart failure) Anemia Afib GI bleed COPD (chronic obstructive pulmonary disease) Hx of carotid stenosis Home Medications ?Medication ?Instructions ?Recorded ?Last Taken ?Type amlodipine 2.5 mg tablet 2.5 mg PO DAILY HTN 03/01/25 06/06/25 History apixaban 5 mg tablet (Eliquis) 5 mg PO BID BLOOD THINN ER 03/01/25 06/03/25 History blood sugar diagnostic (Contour 03/01/25 Unknown Hist ory Next Test Strips) ezetimibe 10 mg tablet 10 mg PO DAILY HLD 03/01/25 06/06/25 History finerenone 10 mg tablet (Kerendia) 10 mg PO DAILY CKD 03/01/25 06/06/25 History furosemide 20 mg tablet 20 mg PO QODAY WATER PILL Unknown History icosapent ethyl 1 gram capsule 2 g PO BID HLD 03/01/25 06/05/25 History (Vascepa) linagliptin 2.5 mg-metformin ER 1 tab PO BID DM 06/03/25 History 1,000 mg tablet,extended release 24 hr (Jentadueto XR) pantoprazole 40 mg tablet,delayed 40 mg PO DAILY GERD 03/01/25 06/06/25 History release rosuvastatin 10 mg tablet 10 mg PO DAILY HLD 03/01/25 06/05/25 History tiotropium bromide 2.5 2 puff inhalation DAILY LUNG 03/01/25 06/05/25 History mcg/actuation mist for inhalation DISEASE (Spiriva Respimat) cilostazol 50 mg tablet 50 mg PO BID PAD #60 tabs 06/06/25 Rx carvedilol 12.5 mg tablet 12.5 mg PO BID HTN 03/11/25 06/06/25 History losartan 100 mg tablet 100 mg PO DAILY HTN 03/11/25 06/06/25 History sertraline 25 mg tablet 25 mg PO DAILY MOOD 03/11/25 06/05/25 History albuterol sulfate 90 mcg/actuation 2 puff inhalation Q 4H PRN 04/12/25 06/05/25 History aerosol inhaler (Ventolin HFA) shortness of breath or wheezing cholecalciferol (vitamin D3) 50 50 mcg PO QDAY SUPPLEM ENT 04/12/25 Unknown History mcg (2,000 unit) capsule clindamycin phosphate 1 % topical 1 applic topical QDA Y PRN itching 04/12/25 Unknown History foam fluocinonide 0.05 % topical 1 applic topical BID PRN i tching 04/12/25 Unknown History solution ferrous sulfate 137 mg (45 mg 137 mg PO DAILY SUPPLEME NT 05/19/25 06/06/25 History iron) tablet,extended release (Slow Fe) Allergy/AdvReac Type Severity Reaction Status Date / Time isosulfan blue Allergy Severe Anaphylaxis Verified 06/06/25 06:25 methylene blue Allergy Severe Anaphylaxis Verified 06/06/25 06:44 Sulfa (Sulfonamide Allergy Rash Verified 06/06/25 06:25 Antibiotics) Family History Other CVA (cerebral vascular accident) Cancer Heart disease Hypertension Kidney disease Surgical History (Updated 05/19/25 @ 09:43 by La Crowder) History of left mastectomy History of right mastectomy History of esophagogastroduodenoscopy (EGD) History of bronchoscopy History of cardiac ablation History of carotid endarterectomy History of bilateral breast reduction surgery History of colonoscopy History of cataract extraction (~2005) H/O: hysterectomy (~1998) Social History Smoking Status: Never smoker ROS ROS Narrative General: Denies fever, chills HEENT: Denies headaches, vision changes, sore throat Cardio: Denies chest pain, leg edema Pulmonary: Denies shortness of pain, cough, wheezing GI: Denies nausea, vomiting, diarrhea Vital Signs Vital Signs Vital Signs: 06/06/25 06:29 06/06/25 06:29 06/06/25 06:59 Temperature 99.7 F H 99.7 F H Temperature Source Temporal Pulse Rate 88 88 Respiratory Rate 12 12 Respiratory Pattern Normal Blood Pressure 188/63 H 188/63 H Blood Pressure Mean 104 Blood Pressure Source Monitor Blood Pressure Position Semi-Fowlers Blood Pressure Location Left Arm Pulse Ox 97 97 Oxygen Delivery Method Room Air Room Air Weight Weight: 125 lb 10.616 oz Body Mass Index (BMI) 19.6 Physical Exam Narrative Hypertensive with blood pressure 188/63, heart rate 88, temp of 99.7. Oxygen sat 97% on room air. 5/5 strength with bilateral hip flexion, knee extension, plantarflexion, dorsiflexion except right dorsiflexion to neutral, 4/5 right EHL. Decreased sensation to light touch diffusely of right foot and posterior calf. Normal sensation to left lower extremity Speaks in full sentences without respiratory distress, no increased effort. 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 Pham and Dr. Brandy Ford for surgical prophylaxis.
[2025-06-06 07:18] LABS: Uric Acid 6.3 mg/dL (2.6-6.0)
--- NOTE | 2025-06-06 07:30 | PLAQ_PTH ---
PATIENT: ROLANDO LOVE #:[id number] LOC: ICU U#:[id number] AGE/SX: 80/F ROOM: [place] [address] RE06/06/[address]: Dr. Reginald Nava MD : [id number] BED: 1 DIS: 06/09/2025 SPEC #: [id number] RECD: 06/06/25 14:17 STATUS: SOUJim REQ #: [id number] BLAISE: 06/06/25 07:[address]: Reginald Nava DEPT: SURGICAL PATHOLOGY RECD BY: Jorge Alberto Terry ENTERED: 06/06/25 14:43 SP TYPE: PLAQUE OTHR DR: MD Dr. Celia De Paz, DO Tissues: A - PLAQUE Procedures: Decalcification bone/plaque Surgery Specimen Level III HEADER OPERATION: Right axillary femoral bypass, right Sartorius flaps PRE-OP DIAGNOSIS: Atherosclerosis of right lower extremity with rest pain TISSUE SUBMITTED: A- Right femoral plaque MICROSCOPIC DIAGNOSIS A. Right femoral artery, plaque, endarterectomy: * Fibrointimal hyperplasia with extensive calcification, consistent with atherosclerotic plaque. GROSS DESCRIPTION A. Received in formalin labeled with the patient's name and date of . Designated as right femoral plaque is a menendez-yellow, calcified material in multiple pieces, collectively measuring 4.4 x 0.6 x 0.4 cm. Caramel Cutter Hand sections are submitted in 1 cassette, following decalcification. ID 06/06/2025 CPT:[id number]
--- NOTE | 2025-06-06 07:35 | PCM.HP.STD ---
HPI - General General Date of Admission: 06/06/25 HPI Narrative ROLANDO LOVE, is a 80 F who presents with right lower extremity critical arterial insufficiency, rest pain. She has aorto-iliac occlusive disease that is densely calcified. Prior TRAM flap with abdominal reconstruction using proline mesh and chronic wound associated with that. [facility] Medical History (Updated 06/06/25 @ 07:26 by MEIR Tomas) Neuropathy Wears partial dentures Post-menopausal Cancer Depression Anxiety Alcohol use Diabetes Ambulates with cane Arthritis Gout History of renal disease Excessive bleeding High cholesterol Low iron Anemia Back pain History of hiatal hernia Hypertension History of GI bleed Gastric reflux Former smoker BiPAP (biphasic positive airway pressure) dependence Chronic cough Leg cramps History of edema History of echocardiogram History of stress test History of atrial fibrillation Cardiology follow-up encounter History of CHF (congestive heart failure) Anemia Afib GI bleed COPD (chronic obstructive pulmonary disease) Hx of carotid stenosis Home Medications ?Medication ?Instructions ?Recorded ?Last Taken ?Type amlodipine 2.5 mg tablet 2.5 mg PO DAILY HTN 03/01/25 06/06/25 History apixaban 5 mg tablet (Eliquis) 5 mg PO BID BLOOD THINNER 03/01/25 06/03/25 History blood sugar diagnostic (Contour 03/01/25 Unknown History Next Test Strips) ezetimibe 10 mg tablet 10 mg PO DAILY HLD 03/01/25 06/06/25 History finerenone 10 mg tablet (Kerendia) 10 mg PO DAILY CKD 03/01/25 06/06/25 History furosemide 20 mg tablet 20 mg PO QODAY WATER PILL 03/01/25 Unknown History icosapent ethyl 1 gram capsule 2 g PO BID HLD 03/01/25 06/05/25 History (Vascepa) linagliptin 2.5 mg-metformin ER 1 tab PO BID DM 03/01/25 06/03/25 History 1,000 mg tablet,extended release 24 hr (Jentadueto XR) pantoprazole 40 mg tablet,delayed 40 mg PO DAILY GERD 03/01/25 06/06/25 History release rosuvastatin 10 mg tablet 10 mg PO DAILY HLD 03/01/25 06/05/25 History tiotropium bromide 2.5 2 puff inhalation DAILY LUNG 03/01/25 06/05/25 History mcg/actuation mist for inhalation DISEASE (Spiriva Respimat) cilostazol 50 mg tablet 50 mg PO BID PAD #60 tabs 03/09/25 06/06/25 Rx carvedilol 12.5 mg tablet 12.5 mg PO BID HTN 03/11/25 06/06/25 History losartan 100 mg tablet 100 mg PO DAILY HTN 03/11/25 06/06/25 History sertraline 25 mg tablet 25 mg PO DAILY MOOD 03/11/25 06/05/25 History albuterol sulfate 90 mcg/actuation 2 puff inhalation Q4H PRN 04/12/25 06/05/25 History aerosol inhaler (Ventolin HFA) shortness of breath or wheezing cholecalciferol (vitamin D3) 50 50 mcg PO QDAY SUPPLEMENT 04/12/25 Unknown History mcg (2,000 unit) capsule clindamycin phosphate 1 % topical 1 applic topical QDAY PRN itching 04/12/25 Unknown History foam fluocinonide 0.05 % topical 1 applic topical BID PRN itching 04/12/25 Unknown History solution ferrous sulfate 137 mg (45 mg 137 mg PO DAILY SUPPLEMENT 05/19/25 06/06/25 History iron) tablet,extended release (Slow Fe) Allergy/AdvReac Type Severity Reaction Status Date / Time isosulfan blue Allergy Severe Anaphylaxis Verified 06/06/25 06:25 methylene blue Allergy Severe Anaphylaxis Verified 06/06/25 06:44 Sulfa (Sulfonamide Allergy Rash Verified 06/06/25 06:25 Antibiotics) Family History Other CVA (cerebral vascular accident) Cancer Heart disease Hypertension Kidney disease Surgical History (Updated 05/19/25 @ 09:43 by La Crowder) History of left mastectomy History of right mastectomy History of esophagogastroduodenoscopy (EGD) History of bronchoscopy History of cardiac ablation History of carotid endarterectomy History of bilateral breast reduction surgery History of colonoscopy History of cataract extraction (~2005) H/O: hysterectomy (~1998) Social History Smoking Status: Never smoker ROS Constitutional Constitutional: Denies chills, fever(s), frequent falls, lethargy or weakness Eyes Eyes: Denies blind spots, change in vision or loss of vision ENT HEENT: Denies bleeding gums, hoarseness or sore throat Cardiovascular Cardiovascular: Denies abdominal pain, bluish discoloration of hand/feet, chest pain with activity, claudication, cold extremities, cyanosis, dyspnea on exertion, erythema on extremities, irregular heart rhythm, leg edema, leg ulcers, numbness in extremities or weakness in extremities Respiratory/Chest Respiratory/Chest: Denies cough, excessive phlegm production, shortness of breath at rest, shortness of breath with exertion or wheezing Gastrointestinal Gastrointestinal: Denies anorexia, change in stool character, constipation, diarrhea, melena or rectal bleeding Genitourinary Genitourinary: Denies dysuria or hematuria Musculoskeletal Musculoskeletal: Denies abnormal gait Integumentary Integumentary: Reports other Details: ; Denies erythema, non-healing lesions or wounds Neurologic Neurologic: Denies abnormal speech, focal weakness, headache(s), loss of vision, numbness, paresthesias or sensory deficit Hematologic/Lymphatic Hematologic/Lymphatic: Denies easy bleeding, easy bruising or lymphadenopathy Vital Signs Vital Signs Vital Signs: 06/06/25 06:29 06/06/25 06:29 06/06/25 06:59 Temperature 99.7 F H 99.7 F H Temperature Source Temporal Pulse Rate 88 88 Respiratory Rate 12 12 Respiratory Pattern Normal Blood Pressure 188/63 H 188/63 H Blood Pressure Mean 104 Blood Pressure Source Monitor Blood Pressure Position Semi-Fowlers Blood Pressure Location Left Arm Pulse Ox 97 97 Oxygen Delivery Method Room Air Room Air Weight Weight: 125 lb 10.616 oz Body Mass Index (BMI) 19.6 Physical Exam Const alert, oriented x3, no apparent distress and healthy appearing General Appearance: cooperative; Negative for combative or lethargic Orientation / Consciousness: awake Exam Limitations: no limitations HEENT Head and Scalp: normocephalic and atraumatic Eyes EOMs intact bilaterally General Eye: normal appearance of both eyes Neck full ROM, no lymphadenopathy, thyroid normal and No no carotid bruits General: trachea midline; Negative for lymphadenopathy or tenderness Thyroid: thyroid normal Lymph Lymphatic: Negative for no lymphadenopathy noted Resp normal respiratory effort, no use of accessory muscles and clear to auscultation bilaterally Effort and Inspection: Negative for labored, stridor or audible wheezes Cardio regular rate, regular rhythm and no murmurs Peripheral Pulses: brachial pulses present, radial pulses present, femoral pulses present, popliteal pulses present, posterior tibial pulses present and dorsalis pedis pulses present GI non-tender and non-distended; Negative for hepatosplenomegaly Back/Spine Cervical Spine: cervical ROM normal Extremity full ROM, normal capillary refill and no clubbing, cyanosis or edema Skin no rashes or lesions noted and no wounds Neuro oriented x3, CN's II-XII intact bilaterally, no focal motor deficits and no sensory deficits noted Psych thought process normal, cooperative, affect normal, speech normal and activity/motor behavior normal Results Lab / Micro Data 05/31/25 13:23 05/31/25 13:23 Labs: Laboratory Results - last 24 hr 06/06/25 05:54: Blood Type Cancelled, Antibody Screen Cancelled 06/06/25 06:14: Uric Acid 6.3 H 06/06/25 06:23: POC Glucose 165 H Assessment & Plan Assessment/Plan (1) Atherosclerosis of right lower extremity with rest pain: QUALIFIERS: Peripheral atherosclerosis artery type: [place] artery Qualified Code(s): I70.221 - Atherosclerosis of [place] arteries of extremities with rest pain, right leg PLAN: -right ax-fem bypass -flap coverage by Dr. Pham
[2025-06-06] MEDS: Lidocaine 1% (5 ml sdv) 5 ML Vial 4 ML IV (07:47)
[2025-06-06] MEDS: fentaNYL 100 MCG/2 ML Ampul IV (08:20)
[2025-06-06] MEDS: Mineral Oil, Light Sterile 10 ML Vial MC (09:14)
[2025-06-06] MEDS: Heparin Injection 5,000 UNITS/ML Syringe 8000 UNITS IV (11:21)
[2025-06-06] MEDS: Cefazolin 1 GM/5 ML Vial 4 GM IV (11:50)
--- NOTE | 2025-06-06 13:50 | PCM.POST.ANE ---
Anesthesia: Postop Eval I Current Vital Signs Temperature: 97 F Pulse Rate: 77 Blood Pressure: 149/53 Respiratory Rate: 14 Pulse Ox: 97 Oxygen Delivery Method: Room Air Assessment Airway patent: Yes Spontaneous unlabored respirations: Yes Mental status: Awake and Calm nausea: No Vomiting: No Anesthesia Complication: No Fluid Hydration Crystalloid volume administer (ml): 2,500 Total IV fluid infused: 2,500 Progress Note Anesthesia document: Postop Eval 1 completed: Yes
--- NOTE | 2025-06-06 14:15 | POSTOPAN2_ITS ---
Anesthesia Postop Eval I Sum Postop Eval Completion status Anesthesia document: Postop Eval 1 completed: Yes Anesthesia Postop Eval I Summary Anesthesia Postop Eval I Summary: Anesthesia Postop Eval I: Assessment Summary Airway patent Yes 06/06/25 13:52 DIRECTOR EMPLOYEE COMMUNICATIONS.GDOTT Spontaneous unlabored Yes 06/06/25 13:52 DIRECTOR EMPLOYEE COMMUNICATIONS.GDOTT respirations Mental status Awake,Calm 06/06/25 13:52 DIRECTOR EMPLOYEE COMMUNICATIONS.GDOTT nausea No 06/06/25 13:52 DIRECTOR EMPLOYEE COMMUNICATIONS.GDOTT Vomiting No 06/06/25 13:52 DIRECTOR EMPLOYEE COMMUNICATIONS.GDOTT Anesthesia Postop Eval I: Fluid Summary Crystalloid volume administer 2,500 06/06/25 13:52 DIRECTOR EMPLOYEE COMMUNICATIONS.GDOTT (ml) Colloids volume administered ( ml) Blood Product volume administered (ml) Total IV fluid infused 2,500 06/06/25 13:52 DIRECTOR EMPLOYEE COMMUNICATIONS.GDOTT Anesthesia Postop Eval I: Summary Notes Anesthesia Complication No 06/06/25 13:52 DIRECTOR EMPLOYEE COMMUNICATIONS.GDOTT Anesthesia Complication Comment: Post-operative progress note Anesthesia: Postop Eval II Evaluation Mental status: Awake and Calm Pain Level: 0 nausea: No Vomiting: No Complications Anesthesia Complication: No
--- NOTE | 2025-06-06 14:15 | PCM.POSTANE2 ---
Anesthesia Postop Eval I Sum Postop Eval Completion status Anesthesia document: Postop Eval 1 completed: Yes Anesthesia Postop Eval I Summary Anesthesia Postop Eval I Summary: Anesthesia Postop Eval I: Assessment Summary Airway patent Yes 06/06/25 13:52 BANKING SERVICES ADVISOR.GDOTT Spontaneous unlabored Yes 06/06/25 13:52 BANKING SERVICES ADVISOR.GDOTT respirations Mental status Awake,Calm 06/06/25 13:52 BANKING SERVICES ADVISOR.GDOTT nausea No 06/06/25 13:52 BANKING SERVICES ADVISOR.GDOTT Vomiting No 06/06/25 13:52 BANKING SERVICES ADVISOR.GDOTT Anesthesia Postop Eval I: Fluid Summary Crystalloid volume administer 2,500 06/06/25 13:52 BANKING SERVICES ADVISOR.GDOTT (ml) Colloids volume administered ( ml) Blood Product volume administered (ml) Total IV fluid infused 2,500 06/06/25 13:52 BANKING SERVICES ADVISOR.GDOTT Anesthesia Postop Eval I: Summary Notes Anesthesia Complication No 06/06/25 13:52 BANKING SERVICES ADVISOR.GDOTT Anesthesia Complication Comment: Post-operative progress note Anesthesia: Postop Eval II Evaluation Mental status: Awake and Calm Pain Level: 0 nausea: No Vomiting: No Complications Anesthesia Complication: No
--- NOTE | 2025-06-06 14:47 | OP.PCM_ITS ---
Operative Report (Standard) Operative Information Date of Procedure: 06/06/25 Pre-Operative Diagnosis: Right axillary to femoral bypass graft with large groin wound Post-Operative Diagnosis: Same Surgery/Procedure Performed: Right sartorius muscle flap for groin coverage of a right femoral axillary to groin bypass graft senior label specialist: Yes Senior Bi Developer: Keya Ovalles Tasks completed by quality assurance assistant: Retracting Type of Anesthesia: General RN Documented Start/Stop Times: Operation Date: 06/06/25 07:30 Case Time Into Pre-Op 06/06/25 05:48 Out of Pre-Op 06/06/25 07:39 Anesthesia Start 06/06/25 07:40 Into Room 06/06/25 07:40 Procedure Start 06/06/25 08:49 Procedure End 06/06/25 13:41 Anesthesia End 06/06/25 13:46 Out of Room 06/06/25 13:46 Into Recovery 06/06/25 13:50 Procedure Start Time: 12:30 Procedure Stop Time: 13:30 Select all DRAINS/GRAFTS/IMPLANTS that apply: None Estimated Blood Loss: 50 cc Specimen collected: No Description of surgery: Indications: Patient is a delightful 80-year-old female presenting today for axillary to femoral bypass grafting. I was present for the bypass graft and an dental hygiene administrative assistant to Dr. Nava. Please see his separate operative note for this portion of the case. I talked the patient about the risks, benefits, and alternatives to muscle flap coverage for the groin wound (over the PTFE graft), and she agreed to proceed. Procedure details: Patient was correct identified in preoperative holding. The axillary to femoral bypass grafting was accomplished. Please see separate operative note for this portion of the procedure. Following axillary to femoral bypass grafting, plastic surgery portion of the procedure was carried out as there was a large right groin bypass graft (PTFE) at the base of the wound requiring coverage for stable wound healing. Careful dissection was taken out laterally over the sartorius to identify the lateral femoral cutaneous nerve and preserve it. We then circumferentially dissected around the sartorius muscle with Bovie electrocautery and the Gloria right angle. The sartorius was cut on its superior aspect near its tendinous origin on the ASIS. It was then flipped/rotated and advanced over the PTFE graft and sutured into place with [id number] 2-0 PDS sutures tied loosely. The wound was then closed with 3- 0 Vicryl deep dermal sutures followed by 3-0 Monocryl running subcuticular sutures. Prevena incisional wound VAC was applied. Patient tolerated the procedure well. .She was awakened and taken to the PACU in stable condition Postoperative plan: Plan for Prevena wound VAC for 1 week. No position restrictions. Surgical Findings: Able to rotate and advance the sartorius over the graft Complications Complications: No
[2025-06-06] MEDS: Cefazolin 1 GM/50 ML BAG IV ×2 (15:07→21:11)
--- NOTE | 2025-06-06 15:08 | OP.PCM_ITS ---
Operative Report (Standard) Operative Information Date of Procedure: 06/06/25 Pre-Operative Diagnosis: Atherosclerosis with rest pain in the right lower extremity Post-Operative Diagnosis: Same Surgery/Procedure Performed: Right axillary to femoral bypass Right common femoral, proximal superficial femoral artery endarterectomy Right sartorius flap safety pin assembling machine operator: Yes Psych Nurse: Melinda Fuller Tasks completed by assistant commissioner: Opening & closing and Retracting Type of Anesthesia: General RN Documented Start/Stop Times: Operation Date: 06/06/25 07:30 Case Time Into Pre-Op 06/06/25 05:48 Out of Pre-Op 06/06/25 07:39 Anesthesia Start 06/06/25 07:40 Into Room 06/06/25 07:40 Procedure Start 06/06/25 08:49 Procedure End 06/06/25 13:41 Anesthesia End 06/06/25 13:46 Out of Room 06/06/25 13:46 Into Recovery 06/06/25 13:50 Procedure Start Time: 08:50 Procedure Stop Time: 13:40 Select all DRAINS/GRAFTS/IMPLANTS that apply: Graft Graft details: 8 mm ringed PTFE bypass graft Estimated Blood Loss: 100 Specimen collected: Yes Description of specimen(s) removed: Plaque Description of surgery: HPI: Patient is a 80-year-old female with severe atherosclerosis and arterial sufficiency with rest pain of the right lower extremity. She has a densely calcified aortoiliac pattern of disease with relatively preserved and for inguinal vasculature. Her contralateral lower extremity has only moderate arterial sufficiency with no symptoms though she does have disease burden in the iliac vessels and she is a history of complex abdominal wall repair with Prolene mesh. She presents now for unilateral revascularization of the right lower extremity with an axillofemoral bypass. Given the need for extensive endarterectomy of the femoral vessels and complex reconstruction a modifier 22 is applied given the additional 1 hour of operative time. In addition the patient is high risk for infection given the significant mount of prosthetic anticipated as well as her status as a diabetic so a sartorius flap will be performed by Dr. Pham. Description of procedure: Upon obtaining informed consent and verification of correct patient procedure and site the patient was taken to the operating where she was placed under general anesthesia. She was then positioned prepped and draped in usual sterile fashion time was performed. Vertical incision was made over the palpable calcified right femoral vessels and Bovie used to dissect down through subcutaneous tissue. Self-retaining retractor was then put in position and further dissection carried down to the femoral sheath. This was then incised vertically extending up to the inguinal ligament. The inguinal ligament was mobilized and retracted cephalad in order to visualize the mid to proximal common femoral artery. The vessel was dissected free circumferentially and a right angle used to place a vessel loop. Dissection was then carried down onto the profunda femoral artery onto the secondary branches and a right angle used to place a vessel loop beyond the area of plaque unusual vessels individually. Finally the superficial femoral artery was dissected free circumferentially beyond the area of densely calcified plaque which extended for the proximal 3 cm of the vessel. A segment of soft vessel was then dissected free circumferentially and a right angle used to place a vessel loop. Next a transverse incision was made 1 fingerbreadth inferior to the clavicle and Bovie used to dissect through subcutaneous tissue. Self-retaining retractors put in position further dissection carried down to the pectoralis major muscle. The muscle fibers were then split and self-retaining retractors moved deeper in the wound. Further dissection was carried through the deeper adipose tissue until the vasculature was identified. At this point sharp dissection was used dissect free the axillary artery with care taken identify and protect adjacent nerve and vein structures. The vessel was dissected circumferentially proximal and distal and a right angle used to place a vessel loop. Next a tunnel was created from the femoral to the axillary incision along the lateral aspect of the abdominal and thoracic wall. The patient was then heparinized and allowed to circulate for 3 minutes with subsequent heparin dosing based on ACT results. The axillary artery was then occluded with Vesseloops and longitudinal arteriotomy created with 11 blade extended the Calero scissors. The graft was then beveled to match the arteriotomy and anastomosis performed using a 5-0 Prolene in a running fashion. After completing a suture line the vessels were back flushed into the graft and satisfactory hemostasis noted at the anastomosis. Surgicel topical hemostatic was then placed adjacent to the anastomosis and the graft clamped at the femoral incision. Next the femoral vessels were occluded with Vesseloops and longitudinal arteriotomy created with 11 blade and extended with Calero scissors from the distal common femoral artery onto the proximal superficial femoral artery beyond the plaque. We then performed an endarterectomy with a freer elevator with satisfactory endpoint distally on the superficial femoral artery. There was significant plaque extending into the profunda so the arteriotomy was then extended into the profunda origin beyond the plaque in order to obtain a satisfactory endpoint. The distal endpoint on the superficial femoral artery was then tacked with 7-0 Prolene interrupted sutures. A segment of the PTFE bypass graft was then fashioned into a patch and secured onto the proximal portion of the superficial femoral artery with 5-0 Prolene in a running fashion. This patch segment was then divided at the origin of the superficial femoral artery flush with the takeoff of the profunda. Next to the bypass graft was then cut the length and beveled to match the arteriotomy with extension onto the profunda. Anastomosis was then performed with a 5-0 Prolene in running fashion. Probably suture on the vessel were backbled and after completing a suture line clamps removed and satisfactory stasis was observed. There is a palpable pulse in the bypass graft as well as in the superficial femoral artery and the profunda vessels beyond. All vessels had appropriate Doppler signal present. Heparin was then reversed with protamine and the incision inspected for hemostasis. Hemoblast topical hemostatic was then placed at the axillary anastomosis due to some persistent needle hole bleeding which resolved after topical agent and manual pressure. At this point Dr. Pham performed the sartorius flap which she will dictate in further detail separately. The axillary incision was then closed with 2-0 Vicryl, 3-0 Vicryl, 4 Monocryl and Dermabond for the skin. Dr. Pham closed the femoral incision after placement of a sartorius flap. At the conclusion of the case the patient was awake from anesthesia taken the recovery room with anticipated admission to intensive care unit. Surgical Findings: Palpable dorsalis pedis pulse, palpable brachial/radial pulse Complications Complications: No
--- NOTE | 2025-06-06 15:33 | CHAPLAIN ---
Type of Pastoral Visit ___ Initial Visit ___ Follow-up Visit ___ On-call Visit ___ General Patient Visit ___ Spiritual Assessment ___ Family Conference ___ Bereavement ___ Rapid Response ___ Code Blue ___ Other (describe below) Pastoral Care Referral From ___ Patient ___ Family ___ Nurse ___ Physician ___ Nurse Companion ___ Copra Sampler ___ Other (describe below) Sacrament/Intervention ___ Active listening ___ Anointing ___ Christianity ___ Bereavement ___ Communion ___ Monique exploration ___ ___ Life review ___ Prayer ___ Reconciliation ___ Sacrament of Sick ___ Supportive presence ___ Wedding ___ Other (describe below) Pastoral Comments patient was having a procedure done and was not available for visit
[2025-06-06] MEDS: 0.45% Normal Saline 1,000 ML 75 ML IV (16:02)
[2025-06-06] MEDS: Ipratropium 0.5 MG/2.5 ML SOLUTION INHALATION (17:34)
[2025-06-06] MEDS: CLARIFY ORDER NOTE (21:11)
[2025-06-06] MEDS: 0.9% Saline Lock 10 ML Syringe IV (22:25)
[2025-06-07] VITALS (24 sets, daily range): BP systolic 95–188; BP diastolic 45–100; PULSE 73–98; RESP 13–23; TEMP 36.4–37.4; O2SAT 95–100; BMI 21.9; BMI 22.0
[2025-06-07 03:16] LABS: Hematocrit 24.7 % (37-47); Hemoglobin 7.7 g/dL (12.0-15.0); Immature Granulocytes Count 0.030 X10^3/uL (0.0-0.0); Mean Corp Hgb Conc 31.2 g/dL (32-36); Mean Corpuscular Volume 89.2 fL (81-99); Mean Platelet Vol. 9.7 fl (6.2-12.0); NRBC Flagged by Analyzer 0 % (0-5); POSITIVE DIFFERENTIAL YES; Platelet Count 153 K/mm3 (150-450); RBC Distribution Width CV 19.6 % (11.6-14.6); RBC Distribution Width SD 63.5 fl (35.1-43.9); Red Blood Count 2.77 M/mm3 (4.2-5.4); White Blood Count 7.2 K/mm3 (4.4-11.0)
[2025-06-07] MEDS: 0.45% Normal Saline 1,000 ML 75 ML IV (03:43)
[2025-06-07 05:06] LABS: Anion Gap 8 (5-15); BUN 14 mg/dL (4-19); BUN/Creat Ratio 15.5 RATIO (10-20); Calcium,Total 7.7 mg/dL (7.6-11.0); Carbon Dioxide 22.8 mmol/L (21.0-32.0); Chloride 101 mmol/L (98-108); Estimated Creatinine Clearance 49.84 ml/min (50-250); Glucose 156 mg/dL (70-99); Potassium 4.2 mmol/L (3.3-5.1)
[2025-06-07] MEDS: Ipratropium 0.5 MG/2.5 ML SOLUTION INHALATION ×2 (06:51→19:16)
[2025-06-07] MEDS: FINERENONE 10 MG TABLET PO (08:28)
--- NOTE | 2025-06-07 14:06 | PCM.PN.SRG ---
Subjective Subjective Doing well today, pain controlled with tylenol. Huma diet, up to chair already last night. Foot feels better/less heavy. Objective Data Objective Data A&O x 3, NAD RRR Resp non labored +brachial pulse DP palpable Dressing C/D/I, soft fullness at axillary incision Vital Signs: Vital Signs Temp Pulse Resp BP Pulse Ox O2 Del Method O2 Flow Rate 98.1 F 98 17 163/59 H 96 Room Air 2 06/07/25 12:00 06/07/25 12:00 06/07/25 12:00 06/07/25 12:00 06/07/25 12:00 06/07/25 12:00 06/07/25 03:00 Oxygen Flow Rate (L/min) 2 Oxygen Delivery Method Room Air Weight: 140 lb 3.424 oz Body Mass Index (BMI) 21.9 Intake & Output: Intake and Output for Last 24 Hours 06/05/25 06/06/25 06/07/25 23:59 23:59 23:59 Intake Total 2645.75 / 2645.75 1601.25 / 1601.25 Output Total 850 / 850 260 / 260 Balance 1795.75 / 1795.75 1341.25 / 1341.25 Lab / Micro Data 06/07/25 03:05 06/07/25 03:05 Labs: Laboratory Results - last 24 hr 06/06/25 16:51: POC Glucose 161 H 06/06/25 21:09: POC Glucose 164 H 06/07/25 03:05: WBC 7.2, RBC 2.77 L, Hgb 7.7 L, Hct 24.7 L, MCV 89.2, MCH 27.8, MCHC 31.2 L, RDW Std Deviation 63.5 H, RDW Coeff of [place] 19.6 H, Plt Count 153, MPV 9.7, Immature Gran % (Auto) 0.400, Neut % (Auto) 82.5 H, Lymph % (Auto) 6.4 L, Wal[place] % (Auto) 10.4 H, Eos % (Auto) 0.0, Baso % (Auto) 0.3, Absolute Neuts (auto) 5.9, Absolute Lymphs (auto) 0.46 L, Nucleated RBC % 0, Sodium 133, Potassium 4.2, Chloride 101, Carbon Dioxide 22.8, Anion Gap 8, BUN 14, Creatinine 0.89, Estim Creat Clear Calc 49.84 L, Est GFR (MDRD) Non-Af 66, BUN/Creatinine Ratio 15.5, Glucose 156 H, Calcium 7.7 06/07/25 08:21: POC Glucose 105 Assessment & Plan Assessment/Plan (1) Atherosclerosis of right lower extremity with rest pain: QUALIFIERS: Peripheral atherosclerosis artery type: [place] artery Qualified Code(s): I70.221 - Atherosclerosis of [place] arteries of extremities with rest pain, right leg PLAN: POD # 1 right ax-fem, sartorius -foot well perfused -huma diet, advance activity -possible small hematoma at axillary site, will assess later today and consider starting low dose heparin -PT/OT
--- NOTE | 2025-06-07 14:27 | CHAPLAIN ---
Type of Pastoral Visit _x__ Initial Visit ___ Follow-up Visit ___ On-call Visit ___ General Patient Visit ___ Spiritual Assessment ___ Family Conference ___ Bereavement ___ Rapid Response ___ Code Blue ___ Other (describe below) Pastoral Care Referral From _x__ Patient ___ Family ___ Nurse ___ Physician ___ Corporate Strategy Associate ___ Inspector Boiler ___ Other (describe below) Sacrament/Intervention _x__ Active listening ___ Anointing ___ Restorationism ___ Bereavement ___ Communion _x__ Monique exploration ___ _x__ Life review _x__ Prayer ___ Reconciliation ___ Sacrament of Sick _x__ Supportive presence ___ Wedding ___ Other (describe below) Pastoral Comments patient is welcoming and gives explanation of her health challenges and that also of her and son; pt and family have moved to be near her daughter and are thankful to be much closer and to have such a fine hospital as this, with better doctors than i had before; pt is satisfied with her care and outcomes so far; pt has been a life long Yarsani and will try to get connected with the local gnosticist in [place]; pt is talkative and expresses appreciation for the spiritual care given and time spent with her; pt welcomes prayer and acknowledges that is hard for her to pray; pt is given some affirmation and support on this
--- NOTE | 2025-06-07 16:19 | CASEMGMT ---
Social Work SW?to room to meet with patient for initial transition planning/care coordination?assessment.?SW?introduced self and role at [facility].? Pt voices understanding and consents to?assessment.? Pt is A/Ox4 and answers all questions appropriately.?? Care providers, pharmacy, and demographics verified. PCP: Celia Al Specialists: Angeline - Hematology, Siena - Pulmonology, Queenie - Cardiology, Bakari - nephrology, Nolan - Podiatry, Brandy - Vascular, Ankit - Surgery Preferred Pharmacy: [facility] Outpatient therapy Insurance: [facility] Medicare Prescription Benefit:?yes Living Will/HPOA:?Pt has a living will on file at [facility]. Pt has not completed a HCPOA. SW offered to assist pt at this time and provided a Rack Card if pt wishes to set up an outpatient appointment. LNOK: Daughter Ene Negrete, and Son Living Arrangements: Pt lives in a one story condo with one step in. Pt lives with her and son who pt reports are not the caregiving type. Pt is independent with ADLs and IADLs. Dgt does assist with house cleaning. Transportation:?Pt son provides transportation DME: ? Cane, shower chair, walk in shower. Bipap through [facility]. HHC/SNF: no previous SNF stay. Home Health Nurse through [facility] Home Health PLAN: Pt had a procedure yesterday in which a wound vac was placed. Pt states the wound vac is to be in place for 8 total days. Pt did have PT and OT evals and did well. No therapy is recommended at discharge. Pt is open to a home health nurse if needed for the wound vac. CHRISSY offered to provide a list of [facility] providers in network with pt insurance however pt declined list stating she would like to use [facility]. SW spoke with pt regarding assistive devises as pt used a FWW during therapy. Pt stating she would benefit from getting a FWW but would prefer a rollator if possible. Pt agreeable to use [employer] for DME. Pt plans to return home at time of discharge. CHRISSY will follow up for Home health and DME. WILLIAMS Rodríguez
[2025-06-07] MEDS: HEPARIN/D5w 25,000 UNITS 25,000 UNITS/250 ML IV.SOLN. 5 UNITS CONT INF (17:39)
[2025-06-07] MEDS: 0.9% Saline Lock 10 ML Syringe IV (20:25)
[2025-06-08] VITALS (12 sets, daily range): BP systolic 129–158; BP diastolic 46–64; PULSE 80–99; RESP 15–20; TEMP 36.7–37.6; O2SAT 91–98; BMI 22.1
[2025-06-08 06:15] LABS: Hematocrit 25.7 % (37-47); Hemoglobin 7.8 g/dL (12.0-15.0); Immature Granulocytes Count 0.020 X10^3/uL (0.0-0.0); Mean Corp Hgb Conc 30.4 g/dL (32-36); Mean Corpuscular Volume 92.1 fL (81-99); Mean Platelet Vol. 10.0 fl (6.2-12.0); NRBC Flagged by Analyzer 0 % (0-5); POSITIVE MORPHOLOGY YES; Platelet Count 135 K/mm3 (150-450); RBC Distribution Width CV 20.6 % (11.6-14.6); RBC Distribution Width SD 67.2 fl (35.1-43.9); Red Blood Count 2.79 M/mm3 (4.2-5.4); White Blood Count 7.0 K/mm3 (4.4-11.0)
[2025-06-08 06:26] LABS: Differential Indicated SCAN CRITERIA MET
[2025-06-08 07:20] LABS: Anisocytosis 1+
--- NOTE | 2025-06-08 08:21 | PCM.PN.SRG ---
Subjective Subjective Patient seen this morning with Dr. Pham. Patient was started on lower dose heparin drip yesterday by Dr. Nava. No concerns overnight. Denies pain, new numbness, weakness, tingling. 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 We are in agreement with plan. Objective Data Objective Data Vital Signs: Vital Signs Temp Pulse Resp BP Pulse Ox O2 Del Method O2 Flow Rate 98.0 F 80 17 129/49 H 95 Room Air 2 06/08/25 05:00 06/08/25 05:00 06/08/25 05:00 06/08/25 05:00 06/08/25 05:00 06/08/25 05:00 06/07/25 03:00 Oxygen Flow Rate (L/min) 2 Oxygen Delivery Method Room Air Weight: 140 lb 14.006 oz Body Mass Index (BMI) 22.1 Intake & Output: Intake and Output for Last 24 Hours 06/06/25 06/07/25 06/08/25 23:59 23:59 23:59 Intake Total 2645.75 / 2645.75 2141.25 / 2261.25 120 / 120 Output Total 850 / 850 260 / 260 Balance 1795.75 / 1795.75 1881.25 / 2001.25 120 / 120 Lab / Micro Data Attestation: I reviewed the patient's lab results. 06/08/25 05:35 06/07/25 03:05 Labs: Laboratory Results - last 24 hr 06/07/25 08:21: POC Glucose 105 06/07/25 11:36: POC Glucose 121 H 06/07/25 16:24: POC Glucose 124 H 06/07/25 21:13: POC Glucose 121 H 06/08/25 05:35: WBC 7.0, RBC 2.79 L, Hgb 7.8 L, Hct 25.7 L, MCV 92.1, MCH 28.0, MCHC 30.4 L, RDW Std Deviation 67.2 H, RDW Coeff of [place] 20.6 H, Plt Count 135 L, MPV 10.0, Immature Gran % (Auto) 0.300, Neut % (Auto) 74.0 H, Lymph % (Auto) 12.3 L, [place] % (Auto) 11.1 H, Eos % (Auto) 1.7, Baso % (Auto) 0.6, Absolute Neuts (auto) 5.2, Absolute Lymphs (auto) 0.86, Nucleated RBC % 0, Anisocytosis 1+ 06/08/25 07:58: POC Glucose 119 H Physical Exam Narrative Afebrile, normotensive, heart rate 80. Lying in bed no acute distress Right axilla dressing without strikethrough or bleeding, per Dr. Pham's exam no palpable swelling or hematoma. Right leg with good seal. Right dorsalis pedis pulse 2+ confirmed on Doppler. No abdominal pain with palpation. 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 PT/OT, mobilization Follow up for 1 week postop Charges/Coding Procedures Integumentary [id number]: [id number] Global Visit
[2025-06-08] MEDS: Ipratropium 0.5 MG/2.5 ML SOLUTION INHALATION ×3 (08:52→19:10)
[2025-06-08] MEDS: FINERENONE 10 MG TABLET PO (09:58)
[2025-06-08 11:49] LABS: Hematocrit 24.9 % (37-47); Hemoglobin 7.9 g/dL (12.0-15.0); Immature Granulocytes Count 0.030 X10^3/uL (0.0-0.0); Mean Corp Hgb Conc 31.7 g/dL (32-36); Mean Corpuscular Volume 90.5 fL (81-99); Mean Platelet Vol. 10.4 fl (6.2-12.0); NRBC Flagged by Analyzer 0 % (0-5); POSITIVE MORPHOLOGY YES; Platelet Count 147 K/mm3 (150-450); RBC Distribution Width CV 20.4 % (11.6-14.6); RBC Distribution Width SD 66.8 fl (35.1-43.9); Red Blood Count 2.75 M/mm3 (4.2-5.4); White Blood Count 7.3 K/mm3 (4.4-11.0)
[2025-06-08 11:50] LABS: Differential Indicated SCAN CRITERIA MET
[2025-06-08 11:53] LABS: Prothrombin Time (Protime)PT. 14.6 SECONDS (11.7-14.9)
[2025-06-08 11:54] LABS: Partial Thromboplast Time 34.9 Seconds (24.1-36.2)
--- NOTE | 2025-06-08 12:08 | CASEMGMT ---
Social Work SW spoke with physician who states wound vac does not need changed when pt returns home and pt has been educated when she can remove it or it can be removed in the office at follow up visit. SW met with pt and discussed this. Pt now denying need for home health nurse with this information. Pt does feel she needs an assistive device at home. SW provided information regarding a walker. SW explained out of pocket costs and pt would like to proceed with rollator and would like to use [employer]. Script signed by physician and referral sent to [employer]. Plan: Return home with spouse and son at time of discharge. Follow up at physician office for wound vac removal. Rollator ordered. WILLIAMS Rodríguez
[2025-06-08 12:20] LABS: Anisocytosis 1+
[2025-06-08] MEDS: HEPARIN/D5w 25,000 UNITS 25,000 UNITS/250 ML IV.SOLN. 7.7 UNITS CONT INF (12:40)
[2025-06-08 18:21] LABS: Partial Thromboplast Time 37.7 Seconds (24.1-36.2)
[2025-06-08] MEDS: Heparin Nomogram Adjustment 5,000 UNIT/ML VIAL IV (18:46)
[2025-06-08] MEDS: APIXABAN 5 MG TABLET PO (21:56)
[2025-06-09] VITALS (9 sets, daily range): BP systolic 123–185; BP diastolic 49–65; PULSE 77–97; RESP 15–20; TEMP 36.6–37.2; O2SAT 95–100; BMI 22.1
[2025-06-09 03:19] LABS: Hematocrit 22.1 % (37-47); Hemoglobin 6.9 g/dL (12.0-15.0); Immature Granulocytes Count 0.020 X10^3/uL (0.0-0.0); Mean Corp Hgb Conc 31.2 g/dL (32-36); Mean Corpuscular Volume 88.8 fL (81-99); Mean Platelet Vol. 9.9 fl (6.2-12.0); NRBC Flagged by Analyzer 0 % (0-5); POSITIVE MORPHOLOGY YES; Platelet Count 134 K/mm3 (150-450); RBC Distribution Width CV 20.2 % (11.6-14.6); RBC Distribution Width SD 65.3 fl (35.1-43.9); Red Blood Count 2.49 M/mm3 (4.2-5.4); White Blood Count 7.0 K/mm3 (4.4-11.0)
[2025-06-09 03:24] LABS: Differential Indicated SCAN CRITERIA MET
[2025-06-09 03:54] LABS: Anisocytosis 1+; Differential Comment SCANNED
--- NOTE | 2025-06-09 07:16 | PN.SURG_ITS ---
Subjective Subjective I saw Terri this morning resting comfortably in bed. She reports to feeling better today than yesterday; overall she feels good, still with some expected soreness at the incision sites. She had no other complaints. Objective Data Objective Data Vital Signs: Vital Signs Temp Pulse Resp BP Pulse Ox O2 Del Method O2 Flow Rate 98.4 F 82 18 134/51 H 95 Room Air 2 06/09/25 03:00 06/09/25 03:00 06/09/25 03:00 06/09/25 03:00 06/09/25 03:00 06/09/25 03:00 06/07/25 03:00 Oxygen Flow Rate (L/min) 2 Oxygen Delivery Method Room Air Weight: 141 lb 5.061 oz Body Mass Index (BMI) 22.1 Intake & Output: Intake and Output for Last 24 Hours 06/07/25 06/08/25 06/09/25 23:59 23:59 23:59 Intake Total 2141.25 / 2261.25 309.94 / 309.94 Output Total 260 / 260 Balance 18809.10 / 309.94 / 309.94 Lab / Micro Data 06/09/25 03:10 06/07/25 03:05 Labs: Laboratory Results - last 24 hr 06/08/25 05:35: Anisocytosis 1+ 06/08/25 07:58: POC Glucose 119 H 06/08/25 11:35: WBC 7.3, RBC 2.75 L, Hgb 7.9 L, Hct 24.9 L, MCV 90.5, MCH 28.7, MCHC 31.7 L, RDW Std Deviation 66.8 H, RDW Coeff of [place] 20.4 H, Plt Count 147 L, MPV 10.4, Immature Gran % (Auto) 0.400, Neut % (Auto) 73.6 H, Lymph % (Auto) 9.9 L, [place] % (Auto) 13.4 H, Eos % (Auto) 2.1, Baso % (Auto) 0.6, Absolute Neuts (auto) 5.3, Absolute Lymphs (auto) 0.72 L, Nucleated RBC % 0, Anisocytosis 1+, PT 14.6, INR 1.1, APTT 34.9 06/08/25 17:50: APTT 37.7 H 06/09/25 03:10: WBC 7.0, RBC 2.49 L, Hgb 6.9 L, Hct 22.1 L, MCV 88.8, MCH 27.7, MCHC 31.2 L, RDW Std Deviation 65.3 H, RDW Coeff of [place] 20.2 H, Plt Count 134 L, MPV 9.9, Immature Gran % (Auto) 0.300, Neut % (Auto) 69.5, Lymph % (Auto) 15.5 L , [place] % (Auto) 12.4 H, Eos % (Auto) 1.7, Baso % (Auto) 0.6, Absolute Neuts (auto) 4.9, Absolute Lymphs (auto) 1.09, Nucleated RBC % 0, Differential Comment SCANNED, Anisocytosis 1+ Physical Exam Const alert, oriented x3 and no apparent distress General Appearance: cooperative and comfortable HEENT normocephalic, hearing grossly normal bilaterally and external ears normal Eyes General Eye: normal appearance of both eyes Neck General: normal visual inspection Resp normal respiratory effort, normal air movement, no retractions and no use of accessory muscles Effort and Inspection: able to speak in complete sentences Cardio regular rate and regular rhythm Extremity Extremity Narrative: R pedal pulse lightly palpable; good multiphasic PT and DP doppler signals R foot is moderately edematous, appropriately warm Skin Skin Narrative: R groin incision site with Prevena vac dressing in place. There is some erythema of a focal area of the skin on the superior medial aspect of the site within the adhesive dressing folds; there is no expanding erythema, warmth, focal edema, fluctuance, induration. There is mild, soft swelling medially tracking into the groin without tenderness R chest incision site with silver postop dressing C/D/I; very mild, soft swelling which is nontender to palpation. No erythema. 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 Hgb drifted to 6.9 today. No signs of active bleeding at the incision sites or otherwise. Will transfuse 2 units PRBC and plan for close outpatient repeat CBC. Incision sites overall satisfactory in appearance. There is a small focal area within the folds of the adhesive dressing of the Prevena that appears to be dermatitc but no warmth or focal swelling, no drainage in the cannister; otherwise the dressing is intact. WBC is stable. Plan for d/c later today.
--- NOTE | 2025-06-09 07:18 | PCM.DC.SUM ---
Providers Date of Admission: 06/06/25 Primary Care Physician: Dr. 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: Status: Chronic Code(s): I70.221 - Atherosclerosis of [place] arteries of extremities with rest pain, right leg Qualifiers: Peripheral atherosclerosis artery type: [place] artery Qualified Code(s): I70.221 - Atherosclerosis of [place] arteries of extremities with rest pain, right leg Medications at Discharge Home Medications amlodipine 2.5 mg tablet 2.5 mg PO DAILY HTN 03/01/25 apixaban 5 mg tablet (Eliquis) 5 mg PO BID BLOOD THINNER 03/01/25 blood sugar diagnostic (Contour Next Test Strips) 03/01/25 ezetimibe 10 mg tablet 10 mg PO DAILY HLD 03/01/25 finerenone 10 mg tablet (Kerendia) 10 mg PO DAILY CKD 03/01/25 furosemide 20 mg tablet 20 mg PO QODAY WATER PILL 03/01/25 icosapent ethyl 1 gram capsule (Vascepa) 2 g PO BID HLD 03/01/25 linagliptin 2.5 mg-metformin ER 1,000 mg tablet,extended release 24 hr (Jentadueto XR) 1 tab PO BID DM 03/01/25 pantoprazole 40 mg tablet,delayed release 40 mg PO DAILY GERD 03/01/25 rosuvastatin 10 mg tablet 10 mg PO DAILY HLD 03/01/25 tiotropium bromide 2.5 mcg/actuation mist for inhalation (Spiriva Respimat) 2 puff inhalation DAILY LUNG DISEASE 03/01/25 cilostazol 50 mg tablet 50 mg PO BID PAD #60 tabs 03/09/25 carvedilol 12.5 mg tablet 12.5 mg PO BID HTN 03/11/25 losartan 100 mg tablet 100 mg PO DAILY HTN 03/11/25 sertraline 25 mg tablet 25 mg PO DAILY MOOD 03/11/25 albuterol sulfate 90 mcg/actuation aerosol inhaler (Ventolin HFA) 2 puff inhalation Q4H PRN shortness of breath or wheezing 04/12/25 cholecalciferol (vitamin D3) 50 mcg (2,000 unit) capsule 50 mcg PO QDAY SUPPLEMENT 04/12/25 clindamycin phosphate 1 % topical foam 1 applic topical QDAY PRN itching 04/12/25 fluocinonide 0.05 % topical solution 1 applic topical BID PRN itching 04/12/25 ferrous sulfate 137 mg (45 mg iron) tablet,extended release (Slow Fe) 137 mg PO DAILY SUPPLEMENT 05/19/25 BIPAP -Bilevel Positive Airway Pressure ([facility] INFORMATIONAL USE ONLY) IN[place] 06/06/25 acetaminophen 325 mg tablet 650 mg (2 x 325 mg) PO Q6H PRN PRN Pain 1-10 Or Fever >100.7 #0 tabs 06/09/25 oxycodone 5 mg tablet 5 mg PO Q8H PRN PRN Pain Score 4-10 5 days #15 tabs 06/09/25 Hospital Course Summary of Care Provided Hospital Course: Terri Peters is a 80 y/o female who underwent R ax-fem bypass, R common and proximal superficial femoral endarterectomy, and R sartorius flap on 06/06/25. She tolerated surgery well and postoperatively was routinely admitted to the ICU for ongoing hemodynamic monitoring. She has progressed well so far; she is tolerating a normal diet, voiding without difficulty, and pain is well managed on oral regimen. She has remained hemodynamically stable throughout admission. She did have slight decrease in Hgb to 6.9 and so received 2 unit PRBC; she does have chronic anemia and so was felt to be stable for discharge given close follow-up in the office within 1 week and planned outpatient monitoring of Hgb. She worked with PT/OT and for safe ambulation both at home and in the community does require a rollator walker at this time which would allow her to take necessary frequent rests; she was not felt to be safe for ambulation with her cane alone at this time. The surgical sites have been well-appearing; prevena vac at the groin incision has maintained good seal and there is a silver dressing in place at the axillary site both of which will remain in place for 1 week or until her postoperative appointment on 06/14/25. Physical Exam Const alert, oriented x3 and no apparent distress General Appearance: cooperative and comfortable HEENT normocephalic, hearing grossly normal bilaterally and external ears normal Eyes General Eye: normal appearance of both eyes Neck General: normal visual inspection Resp normal respiratory effort, normal air movement, no retractions and no use of accessory muscles Effort and Inspection: able to speak in complete sentences Cardio regular rate and regular rhythm Extremity Extremity Narrative: R pedal pulse lightly palpable; good multiphasic PT and DP doppler signals R foot is moderately edematous, appropriately warm Skin Skin Narrative: R groin incision site with Prevena vac dressing in place. There is some erythema of a focal area of the skin on the superior medial aspect of the site within the adhesive dressing folds; there is no expanding erythema, warmth, focal edema, fluctuance, induration. There is mild, soft swelling medially tracking into the groin without tenderness R chest incision site with silver postop dressing C/D/I; very mild, soft swelling which is nontender to palpation. No erythema. Neuro oriented x3 and moves all extremities Psych mental status grossly normal Appearance: grossly normal Attitude: calm and engaged Activity / Motor Behavior: appropriate eye contact Speech: normal speech Mood & Affect: euthymic mood Weight / BMI Weight Weight: 141 lb 5.061 oz Body Mass Index (BMI) 22.1 ABG / Lab / Microbiology Data 06/09/25 03:10 06/07/25 03:05 Laboratory: Laboratory Results - last 24 hr 06/08/25 11:35: WBC 7.3, RBC 2.75 L, Hgb 7.9 L, Hct 24.9 L, MCV 90.5, MCH 28.7, MCHC 31.7 L, RDW Std Deviation 66.8 H, RDW Coeff of [place] 20.4 H, Plt Count 147 L, MPV 10.4, Immature Gran % (Auto) 0.400, Neut % (Auto) 73.6 H, Lymph % (Auto) 9.9 L, [place] % (Auto) 13.4 H, Eos % (Auto) 2.1, Baso % (Auto) 0.6, Absolute Neuts (auto) 5.3, Absolute Lymphs (auto) 0.72 L, Nucleated RBC % 0, Anisocytosis 1+, PT 14.6, INR 1.1, APTT 34.9 06/08/25 17:50: APTT 37.7 H 06/09/25 03:10: WBC 7.0, RBC 2.49 L, Hgb 6.9 L, Hct 22.1 L, MCV 88.8, MCH 27.7, MCHC 31.2 L, RDW Std Deviation 65.3 H, RDW Coeff of [place] 20.2 H, Plt Count 134 L, MPV 9.9, Immature Gran % (Auto) 0.300, Neut % (Auto) 69.5, Lymph % (Auto) 15.5 L, [place] % (Auto) 12.4 H, Eos % (Auto) 1.7, Baso % (Auto) 0.6, Absolute Neuts (auto) 4.9, Absolute Lymphs (auto) 1.09, Nucleated RBC % 0, Differential Comment SCANNED, Anisocytosis 1+ 06/09/25 07:50: Crossmatch See Detail D/C Instructions May shower in (days): 1 Weight Bearing Status: Weight bearing as tolerated Lifting Restricted to (Lbs): 20 Lifting Restrictions: Do not lift greater than 20 pounds for 3 weeks Call your doctor if your incision/area has: Sudden Increased Bleeding, Increased Pain/ Swelling and Foul Smelling Discharge Call your doctor if you observe: Fever of 101 or Higher and Uncontrolled pain Change Dressing in: leave in place till F/U Remove Dressing in: leave in place till F/U DC O2, CPAP, BIPAP Needs Home O2 Discharge instructions: No Additional Instructions: INCISION SITE INSTRUCTIONS: - Your right groin incision site is covered with a Prevena Vacuum Dressing. If possible, we would like this to remain in place for 1 week from surgery, so until at least 06/13. In your case, you are seeing me in the office on 06/14 so I will plan to remove it then. However, sometimes these units will lose seal or malfunction. If this occurs, you can try turning it off and back on but if you are unable to re-establish seal or function then it is OK to remove it a bit early. You can always call the office for further instruction; but you can also remove it yourself following these steps: (1) Hold down the power button until it turns off, (2) Twist the white connector to disconnect the tubing at which point the purple foam will puff up (3) Peel the dressing off (4) You may throw the entire unit away in your trash at home. - Your right chest incision is covered with a silver-based dressing which helps reduce infection risk. We also would like this to remain in place for 1 week if possible and I will also plan to remove this at your first postoperative appointment. However, if for some reason this becomes soiled or is not adherent, then you can simply peel this off gently. - You may shower. These dressings are compatible with showering. Pat gently to dry well after showering. - Do not take a bath or otherwise submerge or soak the incision sites for at least 3 weeks or until fully healed. ACTIVITY INSTRUCTIONS: - You may walk as tolerated and this is encouraged. - Do not lift greater than 20 pounds for at least 3 weeks or until incisions are fully healed. MEDICATION INSTRUCTIONS: - I have prescribed oxycodone 5mg tablets to be taken every 8 hours by mouth as needed for pain. You may take this in addition to Tylenol. Do not take this in combination with any other prescription pain medications. - No other significant changes have been made to your medications. PLEASE CALL THE OFFICE AT [phone] WITH ANY QUESTIONS OR CONCERNS. Please Follow Up With: Gretta Yo PA When: 06/14/2025 Meaningful Use Info Meaningful Use Meaningful Use Diagnoses (Choose all that apply): None applicable Discharge Plan Admission Admit Date/Time: 06/06/25 05:24 Primary Reason for Your Visit: R ax-fem bypass Attending Provider: Reginald Nava Primary Care Provider: Celia Al Consulting Providers: David Severino Instructions Additional Instructions / Restrictions: INCISION SITE INSTRUCTIONS: - Your right groin incision site is covered with a Prevena Vacuum Dressing. If possible, we would like this to remain in place for 1 week from surgery, so until at least 06/13. In your case, you are seeing me in the office on 06/14 so I will plan to remove it then. However, sometimes these units will lose seal or malfunction. If this occurs, you can try turning it off and back on but if you are unable to re-establish seal or function then it is OK to remove it a bit early. You can always call the office for further instruction; but you can also remove it yourself following these steps: (1) Hold down the power button until it turns off, (2) Twist the white connector to disconnect the tubing at which point the purple foam will puff up (3) Peel the dressing off (4) You may throw the entire unit away in your trash at home. - Your right chest incision is covered with a silver-based dressing which helps reduce infection risk. We also would like this to remain in place for 1 week if possible and I will also plan to remove this at your first postoperative appointment. However, if for some reason this becomes soiled or is not adherent, then you can simply peel this off gently. - You may shower. These dressings are compatible with showering. Pat gently to dry well after showering. - Do not take a bath or otherwise submerge or soak the incision sites for at least 3 weeks or until fully healed. ACTIVITY INSTRUCTIONS: - You may walk as tolerated and this is encouraged. - Do not lift greater than 20 pounds for at least 3 weeks or until incisions are fully healed. MEDICATION INSTRUCTIONS: - I have prescribed oxycodone 5mg tablets to be taken every 8 hours by mouth as needed for pain. You may take this in addition to Tylenol. Do not take this in combination with any other prescription pain medications. - No other significant changes have been made to your medications. PLEASE CALL THE OFFICE AT [phone] WITH ANY QUESTIONS OR CONCERNS. Discharge Orders/Prescriptions Prescriptions: New acetaminophen 325 mg Tablet 650 mg PO Q6H PRN PRN (Reason: Pain 1-10 Or Fever >100.7) Qty: 0 0RF oxycodone 5 mg Tablet 5 mg PO Q8H PRN PRN (Reason: Pain Score 4-10) 5 Days Qty: 15 0RF Continued cilostazol 50 mg tablet 50 mg PO BID Qty: 60 2RF albuterol sulfate [Ventolin HFA] 90 mcg/actuation HFA aerosol inhaler 2 puff inhalation Q4H PRN (Reason: shortness of breath or wheezing) cholecalciferol (vitamin D3) 50 mcg (2,000 unit) capsule 50 mcg PO QDAY clindamycin phosphate 1 % foam 1 applic topical QDAY PRN (Reason: itching) fluocinonide 0.05 % solution 1 applic topical BID PRN (Reason: itching) carvedilol 12.5 mg tablet 12.5 mg PO BID losartan 100 mg tablet 100 mg PO DAILY sertraline 25 mg tablet 25 mg PO DAILY Slow Fe 137 mg (45 mg iron) tablet extended release 137 mg PO DAILY BIPAP -Bilevel Positive Airway Pressure ([facility] INFORMATIONAL USE ONLY) Patient Comments: pt has home bipap, DME through [facility]. pt does not know settings amlodipine 2.5 mg tablet 2.5 mg PO DAILY (DME) Contour Next Test Strips Strip 1 strip MISCELLANEOUS BID pantoprazole 40 mg tablet,delayed release (DR/EC) 40 mg PO DAILY furosemide 20 mg tablet 20 mg PO QODAY ezetimibe 10 mg tablet 10 mg PO DAILY rosuvastatin 10 mg tablet 10 mg PO DAILY Spiriva Respimat 2.5 mcg/actuation mist 2 puff inhalation DAILY icosapent ethyl [Vascepa] 1 gram capsule 2 g PO BID Eliquis 5 mg tablet 5 mg PO BID Jentadueto XR 2.5-1,000 mg tablet, IR - ER, biphasic 24hr 1 tab PO BID Kerendia 10 mg tablet 10 mg PO DAILY Referrals / Follow Up: Celia Al, [Primary Care Provider, Family Practice] Disposition Disposition (needs filled in before D/C Order can be placed): Home, Self Care Charges/Coding Procedures Integumentary [id number]: [id number] Global Visit
[2025-06-09] MEDS: Ipratropium 0.5 MG/2.5 ML SOLUTION INHALATION (09:29)
--- NOTE | 2025-06-09 09:29 | CASEMGMT ---
[facility] [employer] liaison at the bedside now delivering the pt's Rollator. No further needs identified.
--- NOTE | 2025-06-09 10:32 | PN.SURG_ITS ---
Subjective Subjective Patient seen this morning with tj Glynn. No concerns overnight. Denies pain, new numbness, weakness, tingling. Pending discharge today after receiving 2 units of transfusion for Hgb of 6.9. She's asymptomatic from this. Has known history of anemia. Objective Data Objective Data Vital Signs: Vital Signs Temp Pulse Resp BP Pulse Ox O2 Del Method O2 Flow Rate 97.9 F 86 20 H 162/60 H 95 Room Air 2 06/09/25 07:57 06/09/25 09:30 06/09/25 09:30 06/09/25 07:57 06/09/25 09:30 06/09/25 09:30 06/07/25 03:00 Oxygen Flow Rate (L/min) 2 Oxygen Delivery Method Room Air Weight: 141 lb 5.061 oz Body Mass Index (BMI) 22.1 Intake & Output: Intake and Output for Last 24 Hours 06/07/25 06/08/25 06/09/25 23:59 23:59 23:59 Intake Total 2141.25 / 226.25 309.94 / 309.94 Output Total 260 / 260 Balance / 309.94 / 309.94 Lab / Micro Data Attestation: I reviewed the patient's lab results. 06/09/25 03:10 06/07/25 03:05 Labs: Laboratory Results - last 24 hr 06/08/25 11:35: WBC 7.3, RBC 2.75 L, Hgb 7.9 L, Hct 24.9 L, MCV 90.5, MCH 28.7, MCHC 31.7 L, RDW Std Deviation 66.8 H, RDW Coeff of [place] 20.4 H, Plt Count 147 L, MPV 10.4, Immature Gran % (Auto) 0.400, Neut % (Auto) 73.6 H, Lymph % (Auto) 9.9 L, [place] % (Auto) 13.4 H, Eos % (Auto) 2.1, Baso % (Auto) 0.6, Absolute Neuts (auto) 5.3, Absolute Lymphs (auto) 0.72 L, Nucleated RBC % 0, Anisocytosis 1+, PT 14.6, INR 1.1, APTT 34.9 06/08/25 17:50: APTT 37.7 H 06/09/25 03:10: WBC 7.0, RBC 2.49 L, Hgb 6.9 L, Hct 22.1 L, MCV 88.8, MCH 27.7, MCHC 31.2 L, RDW Std Deviation 65.3 H, RDW Coeff of [place] 20.2 H, Plt Count 134 L, MPV 9.9, Immature Gran % (Auto) 0.300, Neut % (Auto) 69.5, Lymph % (Auto) 15.5 L , [place] % (Auto) 12.4 H, Eos % (Auto) 1.7, Baso % (Auto) 0.6, Absolute Neuts (auto) 4.9, Absolute Lymphs (auto) 1.09, Nucleated RBC % 0, Differential Comment SCANNED, Anisocytosis 1+ 06/09/25 07:50: Blood Type O POSITIVE, Antibody Screen NEGATIVE, Crossmatch See Detail Physical Exam Narrative Afebrile, SBP 160s, heart rate 80. Lying in bed no acute distress. Right axilla dressing without strikethrough or bleeding, no palpable swelling or hematoma. Soft Right leg wound VAC with good seal. No output in cartridge. Skin irritation form adhesive underneath and some erythema on mons, nontender to palpation without fluid collection. No increased warmth, induration. Right dorsalis pedis pulse 2+ confirmed on Doppler by vascular. No abdominal pain with palpation. Leg is warm, capillary refill is less than 2 seconds No leg swelling Giveaway weakness due to wound VAC discomfort but able to produce 4+/5 hip flexioin, with knee supported 5/5 knee extension, 5/5 dorsiflexion, plantarflexion. 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 Keep Wound VAC remain in place for 1 week postop (day 3 of 7) Advance anticoagulation per vascular OK to discharge from our standpoint PT/OT, mobilization Will coordinate follow up with vascular for 1 week postop. Charges/Coding Procedures Integumentary [id number]: [id number] Global Visit
[2025-06-09] MEDS: FINERENONE 10 MG TABLET PO (10:37)
[2025-06-09] MEDS: APIXABAN 5 MG TABLET PO (10:39)
== END 2025-06-09 16:39 | disposition home or self-care (01) | DRG 253 ==
LOC: ICU 06-07 09:12 → ACINP 06-09 11:55 → ICU 06-09 11:55
PROVIDERS: Anesthesiology; Physician Assistant; Admitting Provider Surgery Trauma Surgery; PCP Student in an Organized Health Care Education/Training Program; Referring Provider Surgery Trauma Surgery; Visit Provider Surgery Trauma Surgery
PROC: 04CK0ZZ Extirpation of Matter from Right Femoral Artery, Open Approach (ICD-10-PCS; principal; 2025-06-06 07:10)
DX: E11.51 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 with diabetic peripheral angiopathy without gangrene (principal); I48.20 Chronic atrial fibrillation, unspecified; D64.9 Anemia, unspecified; E11.40 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 with diabetic neuropathy, unspecified; F32.A Depression, unspecified; E78.00 Pure hypercholesterolemia, unspecified; I70.221 Atherosclerosis of native arteries of extremities with rest pain, right leg; J44.9 Chronic obstructive pulmonary disease, unspecified; I10 Essential (primary) hypertension; F41.9 Anxiety disorder, unspecified; K21.9 Gastro-esophageal reflux disease without esophagitis; L98.439 Non-pressure chronic ulcer of abdomen with unspecified severity; Z87.19 Personal history of other diseases of the digestive system; Z79.51 Long term (current) use of inhaled steroids; Z79.01 Long term (current) use of anticoagulants; Z79.899 Other long term (current) drug therapy; Z87.891 Personal history of nicotine dependence; Z79.84 Long term (current) use of oral hypoglycemic drugs
CPT/HCPCS: 36415; 80048; 80076; 82962; 83036; 84550; 85025; 85027; 85610; 85730; 86850; 86900; 86901; 88304; 88311; 94640; 94668; 94762; 97162; 97166; 97530; 97802; 99252; A4648; P9016; P9040; A4216; G0463; J2405

== ENCOUNTER 2025-06-13 20:23 | Inpatient (IN) | payer MEDICARE, SELFPAY ==
[2025-06-13] VITALS (7 sets, daily range): BP systolic 174–207; BP diastolic 55–99; PULSE 87–102; RESP 15–24; TEMP 36.4–36.9; O2SAT 96–100; BMI 21.8; BMI 20.8
[2025-06-13 20:59] LABS: Hematocrit 35.9 % (37-47); Hemoglobin 11.7 g/dL (12.0-15.0); Immature Granulocytes Count 0.050 X10^3/uL (0.0-0.0); Mean Corp Hgb Conc 32.6 g/dL (32-36); Mean Corpuscular Volume 88.6 fL (81-99); Mean Platelet Vol. 9.4 fl (6.2-12.0); NRBC Flagged by Analyzer 0 % (0-5); Platelet Count 278 K/mm3 (150-450); RBC Distribution Width CV 17.7 % (11.6-14.6); RBC Distribution Width SD 57.8 fl (35.1-43.9); Red Blood Count 4.05 M/mm3 (4.2-5.4); White Blood Count 8.8 K/mm3 (4.4-11.0)
--- NOTE | 2025-06-13 21:05 | RAD_ITS ---
PROCEDURE: CHEST 1 VIEW (PORTABLE) 06/13/2025 REASON FOR EXAM: SHORTNESS OF BREATH TECHNIQUE: Frontal view of the chest. FINDINGS: Mild pulmonary vascular congestion. Mild pulmonary edema. Bibasilar subsegmental atelectasis. No focal consolidation. Trace right base effusion. No significant left base effusion. Cardiac silhouette is within normal limits. Calcified aortic arch. No acute fractures. RAD/Chest 1 View (Portable) IMPRESSION: Mild pulmonary edema. No focal consolidation. Trace right base effusion. Reading Location: [id number]
[2025-06-13 21:15] LABS: Pro- Brain NATRIURETIC PEPTIDE 17275 pg/mL (<=1800); Troponin T High Sensitivity 27 ng/L (<=14)
[2025-06-13 21:16] LABS: Anion Gap 9 (5-15); BUN 16 mg/dL (4-19); BUN/Creat Ratio 19.8 RATIO (10-20); Calcium,Total 8.4 mg/dL (7.6-11.0); Carbon Dioxide 21.9 mmol/L (21.0-32.0); Chloride 104 mmol/L (98-108); Estimated Creatinine Clearance 54.77 ml/min (50-250); Glucose 124 mg/dL (70-99); Potassium 3.9 mmol/L (3.3-5.1)
--- NOTE | 2025-06-13 22:17 | EDS_ITS ---
HPI History of Present Illness Chief Complaint: Shortness of Breath Narrative Narrative: 80-year-old female past medical history of COPD and CHF had recent surgery where she had bypass graft tunneled from her chest right shoulder area into her right leg because of poor circulation. This was performed by Dr. Nava. She states that Dr. Akash Pham had performed a flap to cover the tubing/graft in her leg. She was released from the hospital on Thursday, and yesterday she started having increasing shortness of breath. She denies any fevers or chills, but her chest feels very tight. They also noticed that her blood pressure has been elevated. While she has a history of hypertension, her blood pressure has never been this high. [facility] Medical History Neuropathy Wears partial dentures Post-menopausal Cancer Depression Anxiety Alcohol use Diabetes Ambulates with cane Arthritis Gout History of renal disease Excessive bleeding High cholesterol Low iron Anemia Back pain History of hiatal hernia Hypertension History of GI bleed Gastric reflux Former smoker BiPAP (biphasic positive airway pressure) dependence Chronic cough Leg cramps History of edema History of echocardiogram History of stress test History of atrial fibrillation Cardiology follow-up encounter History of CHF (congestive heart failure) Anemia Afib GI bleed COPD (chronic obstructive pulmonary disease) Hx of carotid stenosis Home Medications Medication Instructions Recorded Last Taken Type amlodipine 2.5 mg tablet 2.5 mg PO DAILY HTN 03/01/25 06/06/25 History apixaban 5 mg tablet (Eliquis) 5 mg PO BID BLOOD THINN ER 03/01/25 06/03/25 History blood sugar diagnostic (Contour 03/01/25 Unknown Hist ory Next Test Strips) ezetimibe 10 mg tablet 10 mg PO DAILY HLD 03/01/25 06/06/25 History finerenone 10 mg tablet (Kerendia) 10 mg PO DAILY CKD 03/01/25 06/06/25 History furosemide 20 mg tablet 20 mg PO QODAY WATER PILL Unknown History icosapent ethyl 1 gram capsule 2 g PO BID HLD 03/01/25 06/05/25 History (Vascepa) linagliptin 2.5 mg-metformin ER 1 tab PO BID DM 06/03/25 History 1,000 mg tablet,extended release 24 hr (Jentadueto XR) pantoprazole 40 mg tablet,delayed 40 mg PO DAILY GERD 03/01/25 06/06/25 History release rosuvastatin 10 mg tablet 10 mg PO DAILY HLD 03/01/25 06/05/25 History tiotropium bromide 2.5 2 puff inhalation DAILY LUNG 03/01/25 06/05/25 History mcg/actuation mist for inhalation DISEASE (Spiriva Respimat) cilostazol 50 mg tablet 50 mg PO BID PAD #60 tabs 06/06/25 Rx carvedilol 12.5 mg tablet 12.5 mg PO BID HTN 03/11/25 06/06/25 History losartan 100 mg tablet 100 mg PO DAILY HTN 03/11/25 06/06/25 History sertraline 25 mg tablet 25 mg PO DAILY MOOD 03/11/25 06/05/25 History albuterol sulfate 90 mcg/actuation 2 puff inhalation Q 4H PRN 04/12/25 06/05/25 H istory aerosol inhaler (Ventolin HFA) shortness of breath or wheezing cholecalciferol (vitamin D3) 50 50 mcg PO QDAY SUPPLEM ENT 04/12/25 Unknown History mcg (2,000 unit) capsule clindamycin phosphate 1 % topical 1 applic topical QDA Y PRN itching 04/12/25 Unknown History foam fluocinonide 0.05 % topical 1 applic topical BID PRN i tching 04/12/25 Unknown History solution ferrous sulfate 137 mg (45 mg 137 mg PO DAILY SUPPLEME NT 05/19/25 06/06/25 History iron) tablet,extended release (Slow Fe) BIPAP -Bilevel Positive Airway INGA 06/06/25 Unknown Hi story Pressure ([facility] USE ONLY) acetaminophen 325 mg tablet 650 mg (2 x 325 mg) PO Q6H PRN PRN 06/09/25 Unknown Rx Pain 1-10 Or Fever >100.7 #0 tabs oxycodone 5 mg tablet 5 mg PO Q8H PRN PRN Pain Sco re 06/09/25 Unknown Rx 4-10 5 days #15 tabs Allergy/AdvReac Type Severity Reaction Status Date / Time isosulfan blue Allergy Severe Anaphylaxis Verified 06/13/25 20:26 methylene blue Allergy Severe Anaphylaxis Verified 06/13/25 20:26 Sulfa (Sulfonamide Allergy Rash Verified 06/13/25 20:26 Antibiotics) Family History Other CVA (cerebral vascular accident) Cancer Heart disease Hypertension Kidney disease Surgical History History of left mastectomy History of right mastectomy History of esophagogastroduodenoscopy (EGD) History of bronchoscopy History of cardiac ablation History of carotid endarterectomy History of bilateral breast reduction surgery History of colonoscopy History of cataract extraction (~2005) H/O: hysterectomy (~1998) Social History Smoking Status: Former smoker ROS ROS ED ROS Narrative Review of systems is positive for shortness of breath, and elevated blood pres sure. Intermittent chest pains. No exacerbating or alleviating factors. No fevers or chills, no cough. EXAM Physical Exam Narrative Exam Narrative: Afebrile. Vital signs noted. Nontoxic-appearing. Cardiovascular examination reveals mild tachycardia. Decreased breath sounds bilateral bases. Positive surgical wound with dressing on right anterior chest wall without surrounding erythema or crepitance. Abdomen is soft and nontender with normoactive bowel sounds. No overt pedal edema bilaterally. Const Vital Signs: 06/13/25 20:24 06/13/25 20:31 06/13/25 20:31 Temperature 97.6 F L 97.6 F L Temperature Source Oral Oral Pulse Rate 101 H 102 H Respiratory Rate 20 H 24 H Respiratory Effort Short of Breath Respiratory Depth Shallow Respiratory Pattern Normal Blood Pressure 207/85 H 189/99 H Blood Pressure Mean 125 129 Pulse Ox 100 96 Oxygen Delivery Method Room Air Room Air Room Air 06/13/25 20:53 06/13/25 20:55 06/13/25 21:26 Temperature 97.5 F L Temperature Source Oral Pulse Rate 97 90 Respiratory Rate 18 21 H Respiratory Effort Respiratory Depth Respiratory Pattern Normal Blood Pressure 174/59 H Blood Pressure Mean 97 Pulse Ox 99 Oxygen Delivery Method Room Air Room Air 06/13/25 22:00 Temperature 97.5 F L Temperature Source Oral Pulse Rate 87 Respiratory Rate 17 Respiratory Effort Respiratory Depth Respiratory Pattern Blood Pressure 180/55 H Blood Pressure Mean 96 Pulse Ox 99 Oxygen Delivery Method Room Air MDM MDM MDM Narrative Medical decision making narrative: The differential diagnosis includes but not limited to CHF exacerbation versus COPD versus combination of both. Pneumonia pneumothorax that is in the differential as well, but history and physical does not support this. Her blood pressure is elevated 207/85 initially. She was administered hydralazine 20 mg intravenously. I reviewed her laboratory work and she has a normal white count of 8.8 with hemoglobin stable at 11.7, hematocrit 35.9, platelet count normal at 278. Electrolyte panel is grossly unremarkable except for glucose of 124 with a normal anion gap of 9, normal BUN of 16 and creatinine 0.81, no evidence of dehydration. Initial high-sensitivity troponin is 27. Of significance is her BNP, elevated at 17,275. EKG was obtained and interpreted by myself independently as normal sinus rhythm at 97 bpm without ectopy or acute ST changes. No STEMI. At her prior records, she has not had an echocardiogram recently. She is on furosemide 20 mg. Additionally, she takes Eliquis so I have low suspicion for pulmonary embolism. Chest x-ray in 1 view interpreted by myself independently does show pulmonary edema but no evidence of a consolidation or pneumonia. No pneumothorax. I reviewed the radiology report which confirms my independent interpretation. At this point in time, she will be given 40 mg of Lasix. I do feel that she needs better blood pressure control, and admission for echocardiogram. Patient will be discussed with the hospitalist, Dr. Joanie Saucedo for admission. Patient is in stable condition. History & Record Review Discussion w/independent historian: Patient Additional record(s) reviewed:: Prior inpatient record and Prior outpatient record Lab Data Attestation: I reviewed the patient's lab results. Labs: Laboratory Results - last 24 hr 06/13/25 20:41 WBC 8.8 RBC 4.05 L Hgb 11.7 L Hct 35.9 L MCV 88.6 MCH 28.9 MCHC 32.6 RDW Std Deviation 57.8 H RDW Coeff of [place] 17.7 H Plt Count 278 MPV 9.4 Immature Gran % (Auto) 0.600 Neut % (Auto) 80.6 H Lymph % (Auto) 8.1 L [place] % (Auto) 7.4 Eos % (Auto) 2.3 Baso % (Auto) 1.0 Absolute Neuts (auto) 7.1 Absolute Lymphs (auto) 0.71 L Nucleated RBC % 0 Sodium 135 Potassium 3.9 Chloride 104 Carbon Dioxide 21.9 Anion Gap 9 BUN 16 Creatinine 0.81 Estim Creat Clear Calc 54.77 Est GFR (MDRD) Non-Af 74 BUN/Creatinine Ratio 19.8 Glucose 124 H Calcium 8.4 Troponin T High [place] 27 [place] [address] H Radiography Chest X-Ray - ED: 1 View, Read by ED Physician (Pulmonary edema), Read by Radiologist (Pulmonary edema, trace right base effusion) and Right Effusion Diagnostic Testing: Clinical Impression(s) from Imaging Studies Chest X-Ray 06/13/25 21:05 IMPRESSION: Mild pulmonary edema. No focal consolidation. Trace right base effusion. Reading Location: [facility] Management Discussion w/another healthcare provider: Hospitalist Discharge Plan Triage Chief Complaint: Shortness of Breath ED Provider: Valente Soto Dx/Rx/DC Orders Prescriptions: No Action cilostazol 50 mg tablet 50 mg PO BID Qty: 60 2RF albuterol sulfate [Ventolin HFA] 90 mcg/actuation HFA aerosol inhaler 2 puff inhalation Q4H PRN (Reason: shortness of breath or wheezing) cholecalciferol (vitamin D3) 50 mcg (2,000 unit) capsule 50 mcg PO QDAY clindamycin phosphate 1 % foam 1 applic topical QDAY PRN (Reason: itching) fluocinonide 0.05 % solution 1 applic topical BID PRN (Reason: itching) carvedilol 12.5 mg tablet 12.5 mg PO BID losartan 100 mg tablet 100 mg PO DAILY sertraline 25 mg tablet 25 mg PO DAILY Slow Fe 137 mg (45 mg iron) tablet extended release 137 mg PO DAILY BIPAP -Bilevel Positive Airway Pressure ([facility] USE ONLY) Patient Comments: pt has home bipap, DME through [facility]. pt does not know settings acetaminophen 325 mg Tablet 650 mg PO Q6H PRN PRN (Reason: Pain 1-10 Or Fever >100.7) Qty: 0 0RF oxycodone 5 mg Tablet 5 mg PO Q8H PRN PRN (Reason: Pain Score 4-10) 5 Days Qty: 15 0RF amlodipine 2.5 mg tablet 2.5 mg PO DAILY (DME) Contour Next Test Strips Strip 1 strip MISCELLANEOUS BID pantoprazole 40 mg tablet,delayed release (DR/EC) 40 mg PO DAILY furosemide 20 mg tablet 20 mg PO QODAY ezetimibe 10 mg tablet 10 mg PO DAILY rosuvastatin 10 mg tablet 10 mg PO DAILY Spiriva Respimat 2.5 mcg/actuation mist 2 puff inhalation DAILY icosapent ethyl [Vascepa] 1 gram capsule 2 g PO BID Eliquis 5 mg tablet 5 mg PO BID Jentadueto XR 2.5-1,000 mg tablet, IR - ER, biphasic 24hr 1 tab PO BID Kerendia 10 mg tablet 10 mg PO DAILY Primary Care Provider: Celia Al Referrals: Celia lA, [Primary Care Provider, Family Practice] Print Language: Greek
--- NOTE | 2025-06-13 22:47 | PCM.HP.STD ---
HPI - General General Date of Admission: 06/13/25 Date of Service: 06/13/25 Chief Complaint: Dyspnea. HPI Narrative The patient is a 80 y/o F w/ PMHx: Diabetes mellitus type II, CKD stage II per GFR trending, HF unclear type, COPD, INGA on BiPAP nightly, HTN, HLD, Chronic normocytic anemia/Fe deficiency anemia, Anxiety and Depression, GERD, recent discharge 06/05/2025 following 06/06/2025 right axillary to femoral bypass with a right common femoral, proximal superficial femoral artery endarterectomy and a right sartorius flap in conjunction with plastic surgery who presents to the [facility] ED on 06/13/2025 with persistently increasing shortness of breath since her discharge the Thursday prior with chest tightness and elevated blood pressures prompting eventual ED reevaluation to be cautious. She does report she has had mild RLE swelling since her intervention. She notes she is supposed to follow-up with plastics and vascular surgery 06/14/2025. She also notes that she did have the VAC in place to the right groin however this recently fell off that she kept it off. Workup in the ED included T97.6, heart rate 101, BP 207/85, respiratory rate 20, 100% on room air with most recent repeat vitals T97.5, heart rate 87, BP 180/55, respiratory rate 17, 99% room air, CBC with WC 8.8, hemoglobin 11.7, MCV 88.6, platelet 278 with lymphopenia, BMP with BUN/creatinine 16/0.81, GFR 74, glucose 124, troponin 27, NT proBNPII 17,275, chest x-ray with mild pulmonary edema with no acute cardiopulmonary findings with a trace right effusion, EKG with sinus rhythm with no acute evidence of ischemia. From review of records patient's most recent weight on day of surgery 06/06/2025 noted to be at 6:29 AM 125 pounds 10.616 ounces and at discharge patient noted on 06/09/2025 to be 141 pounds 5.061 ounces. In the ED patient administered DuoNeb therapy, hydralazine 10 mg IV x 1 and Lasix 40 mg IV x 1. [facility] Medical History Diabetes mellitus, type 2 Neuropathy Wears partial dentures Post-menopausal Cancer Depression Anxiety Alcohol use Diabetes Ambulates with cane Arthritis Gout History of renal disease Excessive bleeding High cholesterol Low iron Anemia Back pain History of hiatal hernia Hypertension History of GI bleed Gastric reflux Former smoker BiPAP (biphasic positive airway pressure) dependence Chronic cough Leg cramps History of edema History of echocardiogram History of stress test History of atrial fibrillation Cardiology follow-up encounter History of CHF (congestive heart failure) Anemia Afib GI bleed COPD (chronic obstructive pulmonary disease) Hx of carotid stenosis Home Medications Medication Instructions Recorded Last Taken Type amlodipine 2.5 mg tablet 2.5 mg PO DAILY HTN 03/01/25 06/06/25 History apixaban 5 mg tablet (Eliquis) 5 mg PO BID BLOOD THINNER 03/01/25 06/03/25 History blood sugar diagnostic (Contour 03/01/25 Unknown History Next Test Strips) ezetimibe 10 mg tablet 10 mg PO DAILY HLD 03/01/25 06/06/25 History finerenone 10 mg tablet (Kerendia) 10 mg PO DAILY CKD 03/01/25 06/06/25 History furosemide 20 mg tablet 20 mg PO QODAY WATER PILL 03/01/25 Unknown History icosapent ethyl 1 gram capsule 2 g PO BID HLD 03/01/25 06/05/25 History (Vascepa) linagliptin 2.5 mg-metformin ER 1 tab PO BID DM 03/01/25 06/03/25 History 1,000 mg tablet,extended release 24 hr (Jentadueto XR) pantoprazole 40 mg tablet,delayed 40 mg PO DAILY GERD 03/01/25 06/06/25 History release rosuvastatin 10 mg tablet 10 mg PO DAILY HLD 03/01/25 06/05/25 History tiotropium bromide 2.5 2 puff inhalation DAILY LUNG 03/01/25 06/05/25 History mcg/actuation mist for inhalation DISEASE (Spiriva Respimat) carvedilol 12.5 mg tablet 12.5 mg PO BID HTN 03/11/25 06/06/25 History losartan 100 mg tablet 100 mg PO DAILY HTN 03/11/25 06/06/25 History sertraline 25 mg tablet 25 mg PO QHS MOOD 03/11/25 06/05/25 History albuterol sulfate 90 mcg/actuation 2 puff inhalation Q4H PRN 04/12/25 06/05/25 History aerosol inhaler (Ventolin HFA) shortness of breath or wheezing cholecalciferol (vitamin D3) 50 50 mcg PO QDAY SUPPLEMENT 04/12/25 Unknown History mcg (2,000 unit) capsule ferrous sulfate 137 mg (45 mg 137 mg PO DAILY SUPPLEMENT 05/19/25 06/06/25 History iron) tablet,extended release (Slow Fe) BIPAP -Bilevel Positive Airway INGA 06/06/25 Unknown History Pressure ([facility] INFORMATIONAL USE ONLY) acetaminophen 325 mg tablet 650 mg (2 x 325 mg) PO Q6H PRN PRN 06/09/25 Unknown Rx Pain 1-10 Or Fever >100.7 #0 tabs oxycodone 5 mg tablet 5 mg PO Q8H PRN PRN Pain Score 06/09/25 Unknown Rx 4-10 5 days #15 tabs Allergy/AdvReac Type Severity Reaction Status Date / Time isosulfan blue Allergy Severe Anaphylaxis Verified 06/13/25 20:26 methylene blue Allergy Severe Anaphylaxis Verified 06/13/25 20:26 Sulfa (Sulfonamide Allergy Rash Verified 06/13/25 20:26 Antibiotics) Family History Mother Cancer Ovarian cancer Hypertension Heart disease Father Cancer Lung cancer. Hypertension Sister Kidney disease Sister Kidney disease Surgical History History of left mastectomy History of right mastectomy History of esophagogastroduodenoscopy (EGD) History of bronchoscopy History of cardiac ablation History of carotid endarterectomy History of bilateral breast reduction surgery History of colonoscopy History of cataract extraction (~2005) H/O: hysterectomy (~1998) Social History (Updated 06/13/25 @ 23:[address] Joanie Saucedo MD) household members: spouse Smoking Status: Former smoker alcohol intake: current alcohol intake frequency: 0-2 drinks per day Alcohol type: wine substance use type: does not use ROS ROS Narrative Admission Review of Systems: CONSTITUTIONAL: No weight loss, fever, chills, + weakness or fatigue, weight gain. HEENT: Eyes: No visual loss, blurred vision, double vision or yellow sclerae. Ears, Nose, Throat: No hearing loss, sneezing, congestion, runny nose or sore throat. SKIN: No rash or itching, lesions except + status post recent OR with associated healing incision RLE/groin, R chest dressing in place without drainage, occasional stage ecchymoses, abrasion. CARDIOVASCULAR: + Intermittent chest tightness, orthopnea, RLE edema. No palpitations, syncopal events. RESPIRATORY: + Dyspnea. No marked cough or sputum, wheezing, hemoptysis. GASTROINTESTINAL: No anorexia, nausea, vomiting or diarrhea, abdominal pain, melena, BRBPR. GENITOURINARY: No dysuria, frequency, urgency or retention. NEUROLOGICAL: No headache, dizziness, syncope, paralysis, ataxia, numbness or tingling in the extremities, focal weakness, change in bowel or bladder control, seizure. MUSCULOSKELETAL: + muscle, back pain, joint pain or stiffness. HEMATOLOGIC:+ Chronic anemia, easy bleeding/bruising. LYMPHATICS: No enlarged nodes. No history of splenectomy. PSYCHIATRIC: + History of anxiety and depression. ENDOCRINOLOGIC: No reports of sweating, cold or heat intolerance. No polyuria or polydipsia. ALLERGIES: + History of anaphylaxis. Vital Signs Vital Signs Vital Signs: 06/13/25 20:24 06/13/25 20:31 06/13/25 20:31 Temperature 97.6 F L 97.6 F L Temperature Source Oral Oral Pulse Rate 101 H 102 H Respiratory Rate 20 H 24 H Respiratory Effort Short of Breath Respiratory Depth Shallow Respiratory Pattern Normal Blood Pressure 207/85 H 189/99 H Blood Pressure Mean 125 129 Pulse Ox 100 96 Oxygen Delivery Method Room Air Room Air Room Air 06/13/25 20:53 06/13/25 20:55 06/13/25 21:26 Temperature 97.5 F L Temperature Source Oral Pulse Rate 97 90 Respiratory Rate 18 21 H Respiratory Effort Respiratory Depth Respiratory Pattern Normal Blood Pressure 174/59 H Blood Pressure Mean 97 Pulse Ox 99 Oxygen Delivery Method Room Air Room Air 06/13/25 22:00 06/13/25 22:39 Temperature 97.5 F L 98.4 F Temperature Source Oral Pulse Rate 87 92 Respiratory Rate 17 17 Respiratory Effort Respiratory Depth Respiratory Pattern Blood Pressure 180/55 H 186/68 H Blood Pressure Mean 96 107 Pulse Ox 99 98 Oxygen Delivery Method Room Air Weight Weight: 139 lb 6.4 oz Body Mass Index (BMI) 21.8 Physical Exam Narrative Physical Examination: General: Awake, alert, oriented x 3 and cooperative, seated upright in the ED bed, fatigued otherwise no acute distress. Skin: Normal color, normal turgor, no icterus, no cyanosis except for occasional stage ecchymoses, abrasion, right chest with dressing in place with no drainage, right groin with incisions healing, status post VAC dysfunction therefore taken off on evening prior to patient/family ED presentation. HEENT: AT/NC, EOMI, PERRLA, MMM, questionable R carotid bruit appreciated, notable elevated JVD noted. Lungs: Diminished, greater bases, mild increased respiratory rate but no distress, mild rales at the bases, no rhonchi or wheezing. Heart: Regular rate and rhythm; no gallop, rub audible. Abdomen: Soft, NTTP, ND, mildly hyperactive BS, no appreciated HSM. Extremities: No cyanosis, no clubbing, mild right distal flannery to foot 1-2+ pitting edema which patient and family say has been stable since OR, see skin. Neurological: Patient awake, alert, oriented as noted, cognitive function intact; pupils equally reactive to light and accommodation, cranial nerves grossly normal, moving all 4 extremities although somewhat limited given recent OR, no focal deficits, strength moderately to severely globally decreased. Psychiatric: Affect appears fatigued, no acute evidence of depressive or anxiety feelings but does have underlying history. Results Lab / Micro Data 06/13/25 20:41 06/13/25 20:41 Labs: Laboratory Results - last 24 hr 06/13/25 20:41: WBC 8.8, RBC 4.05 L, Hgb 11.7 L, Hct 35.9 L, MCV 88.6, MCH 28.9, MCHC 32.6, RDW Std Deviation 57.8 H, RDW Coeff of [place] 17.7 H, Plt Count 278, MPV 9.4, Immature Gran % (Auto) 0.600, Neut % (Auto) 80.6 H, Lymph % (Auto) 8.1 L, [place] % (Auto) 7.4, Eos % (Auto) 2.3, Baso % (Auto) 1.0, Absolute Neuts (auto) 7.1, Absolute Lymphs (auto) 0.71 L, Nucleated RBC % 0, Sodium 135, Potassium 3.9, Chloride 104, Carbon Dioxide 21.9, Anion Gap 9, BUN 16, Creatinine 0.81, Estim Creat Clear Calc 54.77, Est GFR (MDRD) Non-Af 74, BUN/Creatinine Ratio 19.8, Glucose 124 H, Calcium 8.4, Troponin T High Sens 27 H, [place] [address] H Imaging Radiology Impression Chest X-Ray 06/13/25 21:05 IMPRESSION: Mild pulmonary edema. No focal consolidation. Trace right base effusion. Reading Location: [facility] Assessment & Plan Assessment/Plan (1) CHF exacerbation: PLAN: Plan The patient is a 80 y/o F w/ PMHx: Diabetes mellitus type II, CKD stage II per GFR trending, HF unclear type, COPD, INGA on BiPAP nightly, HTN, HLD, Chronic normocytic anemia/Fe deficiency anemia, Anxiety and Depression, GERD, recent discharge 06/05/2025 following 06/06/2025 right axillary to femoral bypass with a right common femoral, proximal superficial femoral artery endarterectomy and a right sartorius flap in conjunction with plastic surgery who presents to the [facility] ED on 06/13/2025 with persistently increasing shortness of breath since her discharge the Thursday prior with chest tightness and elevated blood pressures prompting eventual ED reevaluation to be cautious. #1. Acute Decompensated HF unclear type status post recent PRBC administration potentially contributing with indeterminate cardiac enzyme of unclear significance: Patient administered IV lasix in the ED, will admit to PCU, maintain on cardiac telemetry, will continue to obtain cardiac enzyme series, obtain serial EKGs, continue IV lasix diuresis, monitor I/Os, maintain on intake restriction, continue medical therapy, obtain TSH and magnesium level. Will request echocardiogram. #2. Hypertension, uncontrolled, urgency likely related with acute presentation #1: Will continue patient amlodipine, losartan, Coreg as well as IV Lasix as noted above. Temporarily holding oral Lasix #3. Right lower extremity atherosclerosis with chronic right lower extremity arterial insufficiency and rest pain/aortoiliac occlusive disease status post previous TRAM flap with abdominal reconstruction using Prolene mesh and chronic wound associated: Status post recent right axillary to femoral bypass with a right common femoral, proximal superficial femoral artery endarterectomy and a right sartorius flap in conjunction with plastic surgery on 06/06/2025, discharged recently on 06/09/2025 with plan for ongoing back to the groin incision with silver dressing with plan for ongoing placement x 1 week with follow-up postoperative appointment 06/14/2025-->VAC dysfuction 06/13/25 thus removed, will maintain R chest dressing in place per prior discharge note pending surgery evaluation, given admission at this time will request vascular and plastic surgery consultation, wound RN consulted. Will continue patient cilostazol, ezetimibe, statin therapy, hypertensive regimen. #4. Chronic normocytic anemia/iron deficiency anemia: Admission hemoglobin 11.7, MCV 88.6, most recent hemoglobin however 06/09/2025 6.9, recently discharged 06/09/2025 following right axillary femoral bypass with a right sartorius flap receiving 2 unit PRBC prior to discharge with no repeat hemoglobin at that time noted, will continue to trend CBC, continue iron supplementation. #5. Chronic COPD: Will temporally hold home inhaler, will maintain on ATC DuoNeb therapy, PRN albuterol, HOB, IS parameters. #6. Hyperlipidemia: Continue home statin and ezetimibe regimen. AM FLP. #7. Anxiety and depression: Will continue patient home sertraline regimen #8. GERD: Will continue patient on PPI. #9. Chronic Kidney Disease Stage II per GFR trending: Admission BUN/Cr 16/0.81, GFR 74, baseline renal function primarily 0.8-1.0, repeat BMP in AM. Will continue home kerendia regimen. #10. Diabetes mellitus type II: Hold oral home regimen, ADA diet, accu checks w/ ISS. #11. INGA: BiPAP nightly. #12. DVT prophylaxis: Will continue patient on Eliquis regimen. #13. CODE status: Patient STEVIE is her daughter who is present and living will is currently in place. Discussed CODE status at length including difference between FULL code, DNR-CCA and DNR-CC status. Following discussions about the differences in these status, requested Full Code status. Given her underlying history as noted did discuss prognosis should a cardiopulmonary event occur and she understands. Advanced Care Planning Face to Face Time: 16 minutes. Charges/Coding Visit Charges Inpatient E&M: 39444 Init Hosp L3 Procedures Hospitalists Procedures: 48286 Advncd Care Plan 30 Min
[2025-06-13 23:27] LABS: Troponin T High Sens 2 HR 25 ng/L (<=14)
[2025-06-14] MEDS: APIXABAN 5 MG TABLET PO ×2 (00:35→09:50)
[2025-06-14 00:41] LABS: Magnesium 1.5 mg/dL (1.5-2.2)
[2025-06-14 01:54] LABS: Troponin T High Sens 4 HR 28 ng/L (<=14)
[2025-06-14 03:17] VITALS: BMI 20.7
[2025-06-14 05:54] LABS: Hematocrit 31.7 % (37-47); Hemoglobin 10.3 g/dL (12.0-15.0); Immature Granulocytes Count 0.030 X10^3/uL (0.0-0.0); Mean Corp Hgb Conc 32.5 g/dL (32-36); Mean Corpuscular Volume 87.1 fL (81-99); Mean Platelet Vol. 9.9 fl (6.2-12.0); NRBC Flagged by Analyzer 0 % (0-5); Platelet Count 211 K/mm3 (150-450); RBC Distribution Width CV 17.5 % (11.6-14.6); RBC Distribution Width SD 56.1 fl (35.1-43.9); Red Blood Count 3.64 M/mm3 (4.2-5.4); White Blood Count 6.6 K/mm3 (4.4-11.0)
--- NOTE | 2025-06-14 05:55 | ECHOD_ITS ---
Reason For Study : CHF Procedure This was a 2D Doppler, Color Flow transthoracic echocardiogram. Exam performed portable in patient room. Left Ventricle Normal LV size. Mild concentric left ventricular hypertrophy. The left ventricular ejection fraction is 60 %. Stage 3 diastolic dysfunction. Right Ventricle Normal right ventricle. Atria The left atrium is mildly enlarged. Normal right atrium. Mitral Valve Moderate mitral valve annular calcification. Moderate mitral valve regurgitation. Tricuspid Valve Mild (1+) tricuspid valve insufficiency. Right ventricular systolic pressure estimated to be 73 mmHg. Aortic Valve Moderately calcified aortic valve. Mild aortic valve stenosis. Mild aortic valve regurgitation. Pulmonic Valve The pulmonic valve is not well visualized. Great Vessels Normal sized aortic root. Pericardium/Pleural No pericardial effusion. MMode/2D Measurements & Calculations LVIDd: 4.6 cm IVSd: 1.0 cm LVOT diam: 2.0 cm LVIDs: 3.0 cm LVPWd: 1.2 cm LVOT area: 3.0 cm2 FS: 34.7 % Ao root diam: 3.2 cm LAV(MOD-bp): 66.7 ml LVAd ap4: 28.4 cm2 LA dimension: 3.8 cm LAV(MOD-bp) Indexed: 39.4 ml/m2 LVLd ap4: 7.7 cm LAV(MOD-sp2): 69.4 ml EDV(MOD-sp4): 88.3 ml LAV(MOD-sp4): 62.8 ml EDV(sp4-el): 89.0 ml LVAs ap4: 16.5 cm2 LVLs ap4: 6.4 cm ESV(MOD-sp4): 34.8 ml ESV(sp4-el): 36.1 ml EF(MOD-sp4): 60.6 % EF(sp4-el): 59.4 % LVAd ap2: 30.5 cm2 SV(MOD-sp4): 53.4 ml SV(MOD-sp2): 52.5 ml LVLd ap2: 8.0 cm SI(MOD-sp4): 31.5 ml/m2 SI(MOD-sp2): 31.0 ml/m2 EDV(MOD-sp2): 96.0 ml EDV(sp2-el): 98.2 ml LVAs ap2: 19.0 cm2 LVLs ap2: 7.1 cm ESV(MOD-sp2): 43.5 ml ESV(sp2-el): 43.1 ml EF(MOD-sp2): 54.7 % SV(sp4-el): 52.9 ml LA dimension(2D): 4.1 cm LA A4 area: 20.9 cm2 RA A4 area: 9.9 cm2 TAPSE: 1.7 cm Time Measurements MV dec time: 0.12 sec Doppler Measurements & Calculations MV E max alex: 151.1 cm/sec Lat Peak E' Alex: 7.9 cm/sec Med Peak E' Alex: 5.9 cm/sec MV A max alex: 63.0 cm/sec E/E' lat: 19.0 E/E' med: 25.5 MV E/A: 2.4 Ao V2 max: 168.0 cm/sec LV V1 max: 88.8 cm/sec MV dec slope: 1241 cm/sec2 Ao max P.3 mmHg LV V1 max P.2 mmHg Ao V2 mean: 122.9 cm/sec LV V1 mean P.8 mmHg Ao mean P.6 mmHg LV V1 mean: 65.8 cm/sec Ao V2 VTI: 37.0 cm LV V1 VTI: 19.5 cm AV (velocity ratio): 0.53 KAMRYN(I,D): 1.6 cm2 KAMRYN(V,D): 1.6 cm2 SV(LVOT): 58.4 ml PA V2 max: 86.1 cm/sec TR max alex: 413.3 cm/sec TR max P.3 mmHg ECHO/Echo Complete Interpretation Summary Mild concentric left ventricular hypertrophy. The left ventricular ejection fraction is 60 %. Stage 3 diastolic dysfunction. The left atrium is mildly enlarged. Moderate mitral valve annular calcification. Moderate mitral valve regurgitatio n. Mild (1+) tricuspid valve insufficiency. Right ventricular systolic pressure estimated to be 73 mmHg. Moderately calcified aortic valve. Mild aortic valve stenosis. Mild aortic valv e regurgitation. Ordering Physician: Joanie Saucedo Referring Physician: MIKE PHAM Performed By: Sera Sagastume RDCS
[2025-06-14 06:25] LABS: AST(SGOT) 21 U/L (<=31); Alanine Aminotransfer ALT/SGPT 12 U/L (<=34); Albumin, Serum 3.0 g/dL (3.4-4.8); Alkaline Phosphatase 70 U/L (35-104); Anion Gap 11 (5-15); BUN 19 mg/dL (4-19); BUN/Creat Ratio 23.0 RATIO (10-20); Calcium,Total 8.4 mg/dL (7.6-11.0); Carbon Dioxide 21.1 mmol/L (21.0-32.0); Chloride 104 mmol/L (98-108); Cholesterol 98 mg/dL (<=200); Estimated Creatinine Clearance 52.23 ml/min (50-250); Globulin 3.1 g/dL (2.2-4.2); Glucose 100 mg/dL (70-99); Low Density Lipoprotein Calc. 40 mg/dL; Potassium 4.0 mmol/L (3.3-5.1); Triglycerides 122 mg/dL; Very Low Density Lipoprotein 24 mg/dL (5-40); cholesterol:hdl ratio screen 2.70
[2025-06-14 06:42] VITALS: BP 172/63; PULSE 88; RESP 18; O2SAT 98
[2025-06-14 07:02] VITALS: PULSE 78; RESP 18; O2SAT 98
--- NOTE | 2025-06-14 09:09 | PN.SURG_ITS ---
Subjective Subjective Patient is POD #8 right axillary-femoral bypass, sartorius muscle graft with Dr. Pham and Dr. Nava and was due to present for outpatient follow up however she developed increasing shortness of breath and uncontrolled hypertension and presented to the ED on 06/13/25. Her presenting SBP was 200s and xray showed trace pulmonary edema. She was noted to have 20lbs weight gain since her recent discharge and was started for IV lasix for suspected acute exacerbation of CHF. She was seen at bedside today with tj Glynn. She is in good spirits and states her shortness of breath has resolved and she's feeling better. She notes her incisions have been doing well and the wound VAC came off yesterday 06/13. She notes no pain, new numbness, weakness, tingling, drainage, fever, chills. Objective Data Objective Data Vital Signs: Vital Signs Temp Pulse Resp BP Pulse Ox O2 Del Method 98.4 F 78 18 172/63 H 98 Room Air 06/13/25 22:39 06/14/25 07:02 06/14/25 07:02 06/14/25 06:42 06/14/25 07:02 06/14/25 07:02 Oxygen Delivery Method Room Air Weight: 132 lb 11.492 oz Body Mass Index (BMI) 20.7 Lab / Micro Data Attestation: I reviewed the patient's lab results. 06/14/25 05:21 06/14/25 05:21 Labs: Laboratory Results - last 24 hr 06/13/25 20:41: WBC 8.8, RBC 4.05 L, Hgb 11.7 L, Hct 35.9 L, MCV 88.6, MCH 28.9, MCHC 32.6, RDW Std Deviation 57.8 H, RDW Coeff of [place] 17.7 H, Plt Count 278, MPV 9.4, Immature Gran % (Auto) 0.600, Neut % (Auto) 80.6 H, Lymph % (Auto) 8.1 L, [place] % (Auto) 7.4, Eos % (Auto) 2.3, Baso % (Auto) 1.0, Absolute Neuts (auto) 7.1, Absolute Lymphs (auto) 0.71 L, Nucleated RBC % 0, Sodium 135, Potassium 3.9, Chloride 104, Carbon Dioxide 21.9, Anion Gap 9, BUN 16, Creatinine 0.81, Estim Creat Clear Calc 54.77, Est GFR (MDRD) Non-Af 74, BUN/Creatinine Ratio 19.8, Glucose 124 H, Calcium 8.4, Troponin T High Sens 27 H, [place] [address] H 06/13/25 22:55: Magnesium 1.5, Troponin T Hi Sens 2 Hr 25 H 06/13/25 23:58: POC Glucose 109 H 06/14/25 00:42: Troponin T Hi Sens 4Hr 28 H 06/14/25 05:21: WBC 6.6, RBC 3.64 L, Hgb 10.3 L, Hct 31.7 L, MCV 87.1, MCH 28.3, MCHC 32.5, RDW Std Deviation 56.1 H, RDW Coeff of [place] 17.5 H, Plt Count 211, MPV 9.9, Immature Gran % (Auto) 0.500, Neut % (Auto) 77.2 H, Lymph % (Auto) 9.9 L, [place] % (Auto) 8.5, Eos % (Auto) 3.0, Baso % (Auto) 0.9, Absolute Neuts (auto) 5.1, Absolute Lymphs (auto) 0.65 L, Nucleated RBC % 0, Sodium 136, Potassium 4.0, Chloride 104, Carbon Dioxide 21.1, Anion Gap 11, BUN 19, Creatinine 0.83, Estim Creat Clear Calc 52.23, Est GFR (MDRD) Non-Af 72, BUN/Creatinine Ratio 23.0 H, Glucose 100 H, Calcium 8.4, Total Bilirubin 0.78, AST 21, ALT 12, Alkaline Phosphatase 70, Total Protein 6.1, Albumin 3.0 L, Globulin 3.1, Albumin/Globulin Ratio 1.0, Triglycerides 122, Cholesterol 98, LDL Cholesterol, Calc 40, VLDL Cholesterol 24, HDL Cholesterol 36 L, Cholesterol/HDL Ratio 2.70, TSH 0.898 06/14/25 06:34: POC Glucose 96 Radiography Diagnostic Testing: Radiology Impression Chest X-Ray 06/13/25 21:05 IMPRESSION: Mild pulmonary edema. No focal consolidation. Trace right base effusion. Reading Location: [facility] Physical Exam Narrative Afebrile, 157/50. Lying in bed no acute distress. Right axilla dressing removed, small ballotable fluctuant hematoma. Incision is intact, clean and dry. Right groin incision is clean, dry intact, no fluctuance or fluid collection. Nontender to palpation. No increased warmth, induration. 1+ pitting edema of right distal lower extremity and foot but foot is pink and well perfused. No abdominal pain with palpation. 4+/5 hip Flexion, 5/5 knee extension, 5/5 dorsiflexion, plantarflexion. Sensation intact of right leg to light touch Assessment & Plan Assessment/Plan (1) Atherosclerosis of right lower extremity with rest pain: QUALIFIERS: Peripheral atherosclerosis artery type: ruby artery Qualified Code(s): I70.221 - Atherosclerosis of ruby arteries of extremities with rest pain, right leg PLAN: Plan POD #8 right axillary-femoral bypass, sartorius muscle graft Will coordinate follow up with vascular for 1 week. Will continue to follow while she's inpatient. Charges/Coding Procedures Integumentary [id number]: [id number] Global Visit
[2025-06-14] MEDS: FINERENONE 10 MG TABLET PO (09:50)
[2025-06-14] MEDS: 0.9% Saline Lock 10 ML Syringe IV (09:55)
[2025-06-14 10:17] VITALS: BP 157/50; PULSE 91; RESP 16; TEMP 36.7; O2SAT 96
[2025-06-14 10:24] VITALS: O2SAT 98; O2SAT 99
[2025-06-14 13:40] VITALS: PULSE 87; RESP 18
--- NOTE | 2025-06-14 14:30 | EX.PCM.CON.S ---
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 Dressing removed from the R chest wall incision. R chest wall and R groin incisions are satisfactory in appearance. Vascular exam is stable. Her mild to moderate RLE edema is consistent with typical reperfusion pattern, continue to encourage frequent elevation. Plan for follow-up in the office in 1-2 weeks. HPI Consult Data Date of Consult: 06/14/25 HPI Narrative HPI Narrative: ROLANDO LOVE, is a 80 F who presented to the [facility] ER yesterday evening (06/13/25) with increased SOB and she was admitted for suspected CHF exacerbation. She underwent right axillary to femoral bypass, common femoral, proximal superficial femoral artery endarterectomy, and sartorius flap on 06/06/25 and was discharged from the hospital after this surgery on 06/09/25. I saw her at bedside this afternoon with [employer] MEIR. She reports that she started to notice the SOB first on Thursday and it progressively worsened leading to her presentation. She reports she is feeling better today, breathing more easily. She reports her RLE is feeling good; she is having some mild to moderate swelling but no significant pain. Her wound vac was malfunctioning so she did remove this at home, the skin under the vac adhesive was irritated but this is improving now that the vac is off. She has not had any drainage through her R chest wall dressing. [facility] Medical History Diabetes mellitus, type 2 Neuropathy Wears partial dentures Post-menopausal Cancer Depression Anxiety Alcohol use Diabetes Ambulates with cane Arthritis Gout History of renal disease Excessive bleeding High cholesterol Low iron Anemia Back pain History of hiatal hernia Hypertension History of GI bleed Gastric reflux Former smoker BiPAP (biphasic positive airway pressure) dependence Chronic cough Leg cramps History of edema History of echocardiogram History of stress test History of atrial fibrillation Cardiology follow-up encounter History of CHF (congestive heart failure) Anemia Afib GI bleed COPD (chronic obstructive pulmonary disease) Hx of carotid stenosis Home Medications Medication Instructions Recorded Last Taken Type amlodipine 2.5 mg tablet 2.5 mg PO DAILY HTN 03/01/25 06/06/25 History apixaban 5 mg tablet (Eliquis) 5 mg PO BID BLOOD THINNER 03/01/25 06/03/25 History blood sugar diagnostic (Contour 03/01/25 Unknown History Next Test Strips) ezetimibe 10 mg tablet 10 mg PO DAILY HLD 03/01/25 06/06/25 History finerenone 10 mg tablet (Kerendia) 10 mg PO DAILY CKD 03/01/25 06/06/25 History icosapent ethyl 1 gram capsule 2 g PO BID HLD 03/01/25 06/05/25 History (Vascepa) linagliptin 2.5 mg-metformin ER 1 tab PO BID DM 03/01/25 06/03/25 History 1,000 mg tablet,extended release 24 hr (Jentadueto XR) pantoprazole 40 mg tablet,delayed 40 mg PO DAILY GERD 03/01/25 06/06/25 History release rosuvastatin 10 mg tablet 10 mg PO DAILY HLD 03/01/25 06/05/25 History tiotropium bromide 2.5 2 puff inhalation DAILY LUNG 03/01/25 06/05/25 History mcg/actuation mist for inhalation DISEASE (Spiriva Respimat) carvedilol 12.5 mg tablet 12.5 mg PO BID HTN 03/11/25 06/06/25 History losartan 100 mg tablet 100 mg PO DAILY HTN 03/11/25 06/06/25 History sertraline 25 mg tablet 25 mg PO QHS MOOD 03/11/25 06/05/25 History albuterol sulfate 90 mcg/actuation 2 puff inhalation Q4H PRN 04/12/25 06/05/25 History aerosol inhaler (Ventolin HFA) shortness of breath or wheezing cholecalciferol (vitamin D3) 50 50 mcg PO QDAY SUPPLEMENT 04/12/25 Unknown History mcg (2,000 unit) capsule ferrous sulfate 137 mg (45 mg 137 mg PO DAILY SUPPLEMENT 05/19/25 06/06/25 History iron) tablet,extended release (Slow Fe) BIPAP -Bilevel Positive Airway INGA 06/06/25 Unknown History Pressure ([facility] INFORMATIONAL USE ONLY) acetaminophen 325 mg tablet 650 mg (2 x 325 mg) PO Q6H PRN PRN 06/09/25 Unknown Rx Pain 1-10 Or Fever >100.7 #0 tabs oxycodone 5 mg tablet 5 mg PO Q8H PRN PRN Pain Score 06/09/25 Unknown Rx 4-10 5 days #15 tabs furosemide 20 mg tablet (Lasix) 40 mg (2 x 20 mg) PO DAILY #60 tabs 06/14/25 Unknown Rx Allergy/AdvReac Type Severity Reaction Status Date / Time isosulfan blue Allergy Severe Anaphylaxis Verified 06/13/25 20:26 methylene blue Allergy Severe Anaphylaxis Verified 06/13/25 20:26 Sulfa (Sulfonamide Allergy Rash Verified 06/13/25 20:26 Antibiotics) Family History Mother Cancer Ovarian cancer Hypertension Heart disease Father Cancer Lung cancer. Hypertension Sister Kidney disease Sister Kidney disease Surgical History History of left mastectomy History of right mastectomy History of esophagogastroduodenoscopy (EGD) History of bronchoscopy History of cardiac ablation History of carotid endarterectomy History of bilateral breast reduction surgery History of colonoscopy History of cataract extraction (~2005) H/O: hysterectomy (~1998) Social History (Updated 06/13/25 @ 23:[address] Joanie Saucedo MD) household members: spouse Smoking Status: Former smoker alcohol intake: current alcohol intake frequency: 0-2 drinks per day Alcohol type: wine substance use type: does not use Physical Exam Const alert, oriented x3 and no apparent distress General Appearance: cooperative and comfortable HEENT normocephalic, head/scalp atraumatic, hearing grossly normal bilaterally, external ears normal and external nose normal Eyes General Eye: normal appearance of both eyes Neck General: normal visual inspection and trachea midline Chest Chest Narrative: R chest wall incision site skin glue intact, skin edges viable and well apposed. No drainage, edema, ecchymosis. Resp normal respiratory effort, normal air movement, no retractions and no use of accessory muscles Effort and Inspection: able to speak in complete sentences; Negative for labored, grunting or stridor Cardio regular rate Extremity Extremity Narrative: R radial pulse palpable R pedal pulse palpable R foot with mild edema, appropriately warm with good color R groin incision site with skin glue intact, no dehiscence, no drainage/bleeding. Lady-incisional skin with lessened erythema since vac dressing removal. Soft and nontender to palpation throughout. Skin no rashes or lesions noted Neuro oriented x3, moves all extremities, no focal motor deficits and no sensory deficits noted Speech: speech normal Psych mental status grossly normal Appearance: grossly normal Attitude: calm and engaged Activity / Motor Behavior: appropriate eye contact Speech: normal speech Lab / Micro Data 06/14/25 05:21 06/14/25 05:21 Labs: Laboratory Results - last 24 hr 06/13/25 20:41: WBC 8.8, RBC 4.05 L, Hgb 11.7 L, Hct 35.9 L, MCV 88.6, MCH 28.9, MCHC 32.6, RDW Std Deviation 57.8 H, RDW Coeff of [place] 17.7 H, Plt Count 278, MPV 9.4, Immature Gran % (Auto) 0.600, Neut % (Auto) 80.6 H, Lymph % (Auto) 8.1 L, [place] % (Auto) 7.4, Eos % (Auto) 2.3, Baso % (Auto) 1.0, Absolute Neuts (auto) 7.1, Absolute Lymphs (auto) 0.71 L, Nucleated RBC % 0, Sodium 135, Potassium 3.9, Chloride 104, Carbon Dioxide 21.9, Anion Gap 9, BUN 16, Creatinine 0.81, Estim Creat Clear Calc 54.77, Est GFR (MDRD) Non-Af 74, BUN/Creatinine Ratio 19.8, Glucose 124 H, Calcium 8.4, Troponin T High Sens 27 H, [place] [address] H 06/13/25 22:55: Magnesium 1.5, Troponin T Hi Sens 2 Hr 25 H 06/13/25 23:58: POC Glucose 109 H 06/14/25 00:42: Troponin T Hi Sens 4Hr 28 H 06/14/25 05:21: WBC 6.6, RBC 3.64 L, Hgb 10.3 L, Hct 31.7 L, MCV 87.1, MCH 28.3, MCHC 32.5, RDW Std Deviation 56.1 H, RDW Coeff of [place] 17.5 H, Plt Count 211, MPV 9.9, Immature Gran % (Auto) 0.500, Neut % (Auto) 77.2 H, Lymph % (Auto) 9.9 L, [place] % (Auto) 8.5, Eos % (Auto) 3.0, Baso % (Auto) 0.9, Absolute Neuts (auto) 5.1, Absolute Lymphs (auto) 0.65 L, Nucleated RBC % 0, Sodium 136, Potassium 4.0, Chloride 104, Carbon Dioxide 21.1, Anion Gap 11, BUN 19, Creatinine 0.83, Estim Creat Clear Calc 52.23, Est GFR (MDRD) Non-Af 72, BUN/Creatinine Ratio 23.0 H, Glucose 100 H, Calcium 8.4, Total Bilirubin 0.78, AST 21, ALT 12, Alkaline Phosphatase 70, Total Protein 6.1, Albumin 3.0 L, Globulin 3.1, Albumin/Globulin Ratio 1.0, Triglycerides 122, Cholesterol 98, LDL Cholesterol, Calc 40, VLDL Cholesterol 24, HDL Cholesterol 36 L, Cholesterol/HDL Ratio 2.70, TSH 0.898 06/14/25 06:34: POC Glucose 96 06/14/25 11:18: POC Glucose 118 H Imaging Radiology Impression Chest X-Ray 06/13/25 21:05 IMPRESSION: Mild pulmonary edema. No focal consolidation. Trace right base effusion. Reading Location: [facility] Echocardiogram 06/14/25 05:55 Interpretation Summary Mild concentric left ventricular hypertrophy. The left ventricular ejection fraction is 60 %. Stage 3 diastolic dysfunction. The left atrium is mildly enlarged. Moderate mitral valve annular calcification. Moderate mitral valve regurgitation. Mild (1+) tricuspid valve insufficiency. Right ventricular systolic pressure estimated to be 73 mmHg. Moderately calcified aortic valve. Mild aortic valve stenosis. Mild aortic valve regurgitation. Ordering Physician: Joanie Saucedo Referring Physician: MIKE PHAM Performed By: Sera Sagastume RDCS Charges/Coding Procedures Integumentary [id number]: [id number] Global Visit
--- NOTE | 2025-06-14 15:13 | CHAPLAIN ---
Type of Pastoral Visit _x__ Initial Visit ___ Follow-up Visit ___ On-call Visit ___ General Patient Visit ___ Spiritual Assessment ___ Family Conference ___ Bereavement ___ Rapid Response ___ Code Blue ___ Other (describe below) Pastoral Care Referral From _x__ Patient ___ Family ___ Nurse ___ Physician ___ Finance Insurance Manager ___ Volunteer Services Coordinator ___ Other (describe below) Sacrament/Intervention _x__ Active listening ___ Anointing ___ Cheondoism ___ Bereavement ___ Communion ___ Monique exploration ___ ___ Life review _x__ Prayer ___ Reconciliation ___ Sacrament of Sick _x__ Supportive presence ___ Wedding ___ Other (describe below) Pastoral Comments patient was seen recently in a previous admission and gives update on why she returned to hospital; pt was reluctant to come but is now glad that she did "because it was necessary"; pt is feeling some better and welcomes the support of prayer and presence
--- NOTE | 2025-06-14 15:17 | DCINST_ITS ---
Discharge Instructions DC O2, CPAP, BIPAP needs Home O2 Discharge instructions: No Dressing / Incision Discharge Activity: Return to Normal Activity Weight Bearing Status: Full weight bearing Follow Up Care Test Results: Test results from this visit will be discussed in further detail at your follow- up appointment, if applicable. Discharge Plan Admission Admit Date/Time: 06/13/25 22:51 Primary Reason for Your Visit: Diastolic congestive heart failure, pulmonary hypertension Attending Provider: Barney Gardner Primary Care Provider: Celia Al Consulting Providers: Akash Pham; Reginald Nava; Joanie Saucedo Discharge Orders/Prescriptions Prescriptions: New furosemide [Lasix] 20 mg tablet 40 mg PO DAILY Qty: 60 0RF Continued albuterol sulfate [Ventolin HFA] 90 mcg/actuation HFA aerosol inhaler 2 puff inhalation Q4H PRN (Reason: shortness of breath or wheezing) cholecalciferol (vitamin D3) 50 mcg (2,000 unit) capsule 50 mcg PO QDAY carvedilol 12.5 mg tablet 12.5 mg PO BID losartan 100 mg tablet 100 mg PO DAILY sertraline 25 mg tablet 25 mg PO QHS Slow Fe 137 mg (45 mg iron) tablet extended release 137 mg PO DAILY BIPAP -Bilevel Positive Airway Pressure ([facility] INFORMATIONAL USE ONLY) Patient Comments: pt has home bipap, DME through [facility]. pt does not know settings acetaminophen 325 mg Tablet 650 mg PO Q6H PRN PRN (Reason: Pain 1-10 Or Fever >100.7) Qty: 0 0RF oxycodone 5 mg Tablet 5 mg PO Q8H PRN PRN (Reason: Pain Score 4-10) 5 Days Qty: 15 0RF amlodipine 2.5 mg tablet 2.5 mg PO DAILY (DME) Contour Next Test Strips Strip 1 strip MISCELLANEOUS BID pantoprazole 40 mg tablet,delayed release (DR/EC) 40 mg PO DAILY ezetimibe 10 mg tablet 10 mg PO DAILY rosuvastatin 10 mg tablet 10 mg PO DAILY Spiriva Respimat 2.5 mcg/actuation mist 2 puff inhalation DAILY icosapent ethyl [Vascepa] 1 gram capsule 2 g PO BID Eliquis 5 mg tablet 5 mg PO BID Jentadueto XR 2.5-1,000 mg tablet, IR - ER, biphasic 24hr 1 tab PO BID Kerendia 10 mg tablet 10 mg PO DAILY Discontinued furosemide 20 mg tablet 20 mg PO QODAY Referrals / Follow Up: Celia Al DO [Primary Care Provider, Family Practice] - In 1 Week Disposition Disposition (needs filled in before D/C Order can be placed): Home, Self Care
--- NOTE | 2025-06-14 15:26 | PCM.DC.SUM ---
Providers Date of Admission: 06/13/25 Date of Discharge: 06/14/25 Primary Care Physician: Dr. Mike Pham, DO Consultations 06/13/25 23:47 Consult: Onc/Wound/dental hygiene professor Routine Comment: Reason for Consult:: Recent OR with wounds Consult: Plastic Surgery Routine Consulting Provider: Akash Pham Reason for Consult: Recent R ax-fem bpass w/ flap, admit w/ HF exac. EMERGENT Consult: No MD Notified: Yes Date Notified: 06/13/25 Time Notified: 23:11 Method of Notification: Text Consult: Vascular Surgery Routine Consulting Provider: Reginald Nava Reason for Consult: Recent OR wR anx-fem bypass. 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 Acute exacerbation of chronic congestive heart failure with preserved ejection fraction #2 severe pulmonary hypertension #3 essential hypertension #4 peripheral vascular disease #5 chronic obstructive pulmonary disease #6 hyperlipidemia #7 hypoxia secondary to #1 #8 paroxysmal atrial fib #9 long-term use of oral anticoagulant Medications at Discharge Home Medications amlodipine 2.5 mg tablet 2.5 mg PO DAILY HTN 03/01/25 apixaban 5 mg tablet (Eliquis) 5 mg PO BID BLOOD THINNER 03/01/25 blood sugar diagnostic (Contour Next Test Strips) 03/01/25 ezetimibe 10 mg tablet 10 mg PO DAILY HLD 03/01/25 finerenone 10 mg tablet (Kerendia) 10 mg PO DAILY CKD 03/01/25 icosapent ethyl 1 gram capsule (Vascepa) 2 g PO BID HLD 03/01/25 linagliptin 2.5 mg-metformin ER 1,000 mg tablet,extended release 24 hr (Jentadueto XR) 1 tab PO BID DM 03/01/25 pantoprazole 40 mg tablet,delayed release 40 mg PO DAILY GERD 03/01/25 rosuvastatin 10 mg tablet 10 mg PO DAILY HLD 03/01/25 tiotropium bromide 2.5 mcg/actuation mist for inhalation (Spiriva Respimat) 2 puff inhalation DAILY LUNG DISEASE 03/01/25 carvedilol 12.5 mg tablet 12.5 mg PO BID HTN 03/11/25 losartan 100 mg tablet 100 mg PO DAILY HTN 03/11/25 sertraline 25 mg tablet 25 mg PO QHS MOOD 03/11/25 albuterol sulfate 90 mcg/actuation aerosol inhaler (Ventolin HFA) 2 puff inhalation Q4H PRN shortness of breath or wheezing 04/12/25 cholecalciferol (vitamin D3) 50 mcg (2,000 unit) capsule 50 mcg PO QDAY SUPPLEMENT 04/12/25 ferrous sulfate 137 mg (45 mg iron) tablet,extended release (Slow Fe) 137 mg PO DAILY SUPPLEMENT 05/19/25 BIPAP -Bilevel Positive Airway Pressure ([facility] INFORMATIONAL USE ONLY) INGA 06/06/25 acetaminophen 325 mg tablet 650 mg (2 x 325 mg) PO Q6H PRN PRN Pain 1-10 Or Fever >100.7 #0 tabs 06/09/25 oxycodone 5 mg tablet 5 mg PO Q8H PRN PRN Pain Score 4-10 5 days #15 tabs 06/09/25 furosemide 20 mg tablet (Lasix) 40 mg (2 x 20 mg) PO DAILY #60 tabs 06/14/25 Hospital Course Operations None Procedures 2-D Echocardiogram Summary of Care Provided Minutes Spent on Discharge: 31 Hospital Course: This 80-year-old white female was seen in the emergency room at [facility] with a chief complaint of shortness of breath. Patient has a history of chronic obstructive pulmonary disease and CHF in the past. Chest x-ray was obtained which showed mild pulmonary edema, there was trace right basilar effusion. CBC showed hemoglobin of 10.3, white blood cell count was normal, chemistry profile was unremarkable. Patient was admitted to PCU and placed on IV diuretics, she underwent an echocardiogram which showed a normal EF but severe pulmonary hypertension. Patient improved during her hospital stay, on 06/14/2025, patient was seen and examined: On examination she appeared in good health and spirits, she does not appear to be in any distress. Vital signs as documented. Skin warm and dry and without overt rashes. Neck without JVD, thyroid appears normal, trachea is midline, neck is supple. Lungs clear, normal air movement was noted. Heart exam notable for regular rhythm, normal sounds and absence of murmurs, rubs or gallops. Abdomen unremarkable and without evidence of organomegaly, masses, or abdominal aortic enlargement, bowel sounds are present in all 4 quadrants, no abdominal tenderness was noted. Extremities nonedematous, no cyanosis was noted, no clubbing was noted. Neuro: Cranial nerves II through XII are grossly intact, no focal motor deficits were noted, sensation to light touch and pinprick is intact, motor exam 5/5 throughout. Psych: Patient is alert and oriented x3, she does not appear anxious or depressed, she does not appear agitated. Patient was discharged home in stable condition on 06/14/2025. Patient did not require home oxygen at the time of discharge. Weight / BMI Weight Weight: 60.2 kg Body Mass Index (BMI) 20.7 ABG / Lab / Microbiology Data 06/14/25 05:21 06/14/25 05:21 Laboratory: Laboratory Results - last 24 hr 06/13/25 20:41: WBC 8.8, RBC 4.05 L, Hgb 11.7 L, Hct 35.9 L, MCV 88.6, MCH 28.9, MCHC 32.6, RDW Std Deviation 57.8 H, RDW Coeff of [place] 17.7 H, Plt Count 278, MPV 9.4, Immature Gran % (Auto) 0.600, Neut % (Auto) 80.6 H, Lymph % (Auto) 8.1 L, [place] % (Auto) 7.4, Eos % (Auto) 2.3, Baso % (Auto) 1.0, Absolute Neuts (auto) 7.1, Absolute Lymphs (auto) 0.71 L, Nucleated RBC % 0, Sodium 135, Potassium 3.9, Chloride 104, Carbon Dioxide 21.9, Anion Gap 9, BUN 16, Creatinine 0.81, Estim Creat Clear Calc 54.77, Est GFR (MDRD) Non-Af 74, BUN/Creatinine Ratio 19.8, Glucose 124 H, Calcium 8.4, Troponin T High Sens 27 H, [place] [address] H 06/13/25 22:55: Magnesium 1.5, Troponin T Hi Sens 2 Hr 25 H 06/13/25 23:58: POC Glucose 109 H 06/14/25 00:42: Troponin T Hi Sens 4Hr 28 H 06/14/25 05:21: WBC 6.6, RBC 3.64 L, Hgb 10.3 L, Hct 31.7 L, MCV 87.1, MCH 28.3, MCHC 32.5, RDW Std Deviation 56.1 H, RDW Coeff of [place] 17.5 H, Plt Count 211, MPV 9.9, Immature Gran % (Auto) 0.500, Neut % (Auto) 77.2 H, Lymph % (Auto) 9.9 L, [place] % (Auto) 8.5, Eos % (Auto) 3.0, Baso % (Auto) 0.9, Absolute Neuts (auto) 5.1, Absolute Lymphs (auto) 0.65 L, Nucleated RBC % 0, Sodium 136, Potassium 4.0, Chloride 104, Carbon Dioxide 21.1, Anion Gap 11, BUN 19, Creatinine 0.83, Estim Creat Clear Calc 52.23, Est GFR (MDRD) Non-Af 72, BUN/Creatinine Ratio 23.0 H, Glucose 100 H, Calcium 8.4, Total Bilirubin 0.78, AST 21, ALT 12, Alkaline Phosphatase 70, Total Protein 6.1, Albumin 3.0 L, Globulin 3.1, Albumin/Globulin Ratio 1.0, Triglycerides 122, Cholesterol 98, LDL Cholesterol, Calc 40, VLDL Cholesterol 24, HDL Cholesterol 36 L, Cholesterol/HDL Ratio 2.70, TSH 0.898 06/14/25 06:34: POC Glucose 96 06/14/25 11:18: POC Glucose 118 H Radiography Diagnostic Testing: Radiology Impression Chest X-Ray 06/13/25 21:05 IMPRESSION: Mild pulmonary edema. No focal consolidation. Trace right base effusion. Reading Location: [facility] Echocardiogram 06/14/25 05:55 Interpretation Summary Mild concentric left ventricular hypertrophy. The left ventricular ejection fraction is 60 %. Stage 3 diastolic dysfunction. The left atrium is mildly enlarged. Moderate mitral valve annular calcification. Moderate mitral valve regurgitation. Mild (1+) tricuspid valve insufficiency. Right ventricular systolic pressure estimated to be 73 mmHg. Moderately calcified aortic valve. Mild aortic valve stenosis. Mild aortic valve regurgitation. Ordering Physician: Joanie Saucedo Referring Physician: MIKE PHAM Performed By: Sera Sagastume RDCS D/C Instructions Weight Bearing Status: Full weight bearing DC O2, CPAP, BIPAP Needs Home O2 Discharge instructions: No Meaningful Use Info Meaningful Use Meaningful Use Diagnoses (Choose all that apply): CHF CHF OKSANA/ARB ordered at discharge?: Yes Documented LVEF (%): 70 Discharge Plan Admission Admit Date/Time: 06/13/25 22:51 Primary Reason for Your Visit: Diastolic congestive heart failure, pulmonary hypertension Attending Provider: Barney Gardner Primary Care Provider: Mike Pham Consulting Providers: Akash Pham; Reginald Nava; Joanie Saucedo Discharge Orders/Prescriptions Prescriptions: New furosemide [Lasix] 20 mg tablet 40 mg PO DAILY Qty: 60 0RF Continued albuterol sulfate [Ventolin HFA] 90 mcg/actuation HFA aerosol inhaler 2 puff inhalation Q4H PRN (Reason: shortness of breath or wheezing) cholecalciferol (vitamin D3) 50 mcg (2,000 unit) capsule 50 mcg PO QDAY carvedilol 12.5 mg tablet 12.5 mg PO BID losartan 100 mg tablet 100 mg PO DAILY sertraline 25 mg tablet 25 mg PO QHS Slow Fe 137 mg (45 mg iron) tablet extended release 137 mg PO DAILY BIPAP -Bilevel Positive Airway Pressure ([facility] INFORMATIONAL USE ONLY) Patient Comments: pt has home bipap, DME through [facility]. pt does not know settings acetaminophen 325 mg Tablet 650 mg PO Q6H PRN PRN (Reason: Pain 1-10 Or Fever >100.7) Qty: 0 0RF oxycodone 5 mg Tablet 5 mg PO Q8H PRN PRN (Reason: Pain Score 4-10) 5 Days Qty: 15 0RF amlodipine 2.5 mg tablet 2.5 mg PO DAILY (DME) Contour Next Test Strips Strip 1 strip MISCELLANEOUS BID pantoprazole 40 mg tablet,delayed release (DR/EC) 40 mg PO DAILY ezetimibe 10 mg tablet 10 mg PO DAILY rosuvastatin 10 mg tablet 10 mg PO DAILY Spiriva Respimat 2.5 mcg/actuation mist 2 puff inhalation DAILY icosapent ethyl [Vascepa] 1 gram capsule 2 g PO BID Eliquis 5 mg tablet 5 mg PO BID Jentadueto XR 2.5-1,000 mg tablet, IR - ER, biphasic 24hr 1 tab PO BID Kerendia 10 mg tablet 10 mg PO DAILY Discontinued furosemide 20 mg tablet 20 mg PO QODAY Referrals / Follow Up: Mike Pham DO [Primary Care Provider, Family Practice] - In 1 Week Disposition Disposition (needs filled in before D/C Order can be placed): Home, Self Care Charges/Coding Visit Charges Inpatient E&M: 98183 Disch Hosp >30min
--- NOTE | 2025-06-14 15:35 | CASEMGMT ---
Patient has order for discharge. RN CM in to discuss needs at discharge. Patient states daughter is available for help if needed. Patient denies further needs or help at discharge. Patient had no further questions.
== END 2025-06-14 17:04 | disposition home or self-care (01) | DRG 291 ==
LOC: ED 22:59 → PCU 23:18
PROVIDERS: Admitting Provider Family Medicine; Emergency Provider Emergency Medicine; PCP Student in an Organized Health Care Education/Training Program; Visit Provider Internal Medicine
DX: I13.0 Hypertensive heart and chronic kidney disease with heart failure and stage 1 through stage 4 chronic kidney disease, or unspecified chronic kidney disease (principal); I50.33 Acute on chronic diastolic (congestive) heart failure; I27.20 Pulmonary hypertension, unspecified; E11.22 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 with diabetic chronic kidney disease; I16.0 Hypertensive urgency; D50.9 Iron deficiency anemia, unspecified; Z79.01 Long term (current) use of anticoagulants; J44.9 Chronic obstructive pulmonary disease, unspecified; I70.221 Atherosclerosis of native arteries of extremities with rest pain, right leg; F32.A Depression, unspecified; I48.0 Paroxysmal atrial fibrillation; E11.40 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 with diabetic neuropathy, unspecified; E11.51 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 with diabetic peripheral angiopathy without gangrene; E78.5 Hyperlipidemia, unspecified; F41.9 Anxiety disorder, unspecified; K21.9 Gastro-esophageal reflux disease without esophagitis; N18.2 Chronic kidney disease, stage 2 (mild); G47.33 Obstructive sleep apnea (adult) (pediatric); R09.02 Hypoxemia; Z87.19 Personal history of other diseases of the digestive system; Z79.51 Long term (current) use of inhaled steroids; Z87.891 Personal history of nicotine dependence; Z79.84 Long term (current) use of oral hypoglycemic drugs; Z79.899 Other long term (current) drug therapy
CPT/HCPCS: 36415; 71045; 80048; 80053; 80061; 82962; 83735; 83880; 84443; 84484; 85025; 93005; 93306; 94640; 94668; 97802; 99285; A4216; J1938

== ENCOUNTER → 2025-07-21 | Outpatient (CLI) | payer MEDICARE, SELFPAY ==
--- NOTE | 2025-07-21 12:56 | ADUL_ITS ---
Reason For Study Reason For Study: S/P Rt ax-fem bypass with PTFE, fem endartectomy Right Velocities Axillary-Femoral Bypass Axillary artery, Inflow, 191.5 cm/sec. Prox anastamosis, 238.9 cm/sec. Prox graft, 139.7 cm/sec. Mid graft, 129.3 cm/sec. Distal graft, 122.7 cm/sec. Distal anastamosis, 155.3 cm/sec. ALUMINUM WELDER distal, distal to bypass, 222.7 cm/sec. Supf Femoral Artery, origin = 87.5 cm/sec. Supf Femoral Artery, prox = 193.6 cm./sec. Supf Femoral Artery, mid = 183.9 cm./sec. Supf Femoral Artery, mid/distal = 277.4 cm/sec. Supf Femoral Artery, distal = 187.2 cm/sec. Profunda Femoral Artery = 67.4 cm./sec. Popliteal Artery, mid = 151.6 cm./sec. Post. Tibial Artery, prox = 122.7 cm./sec. Post. Tibial Artery, mid = 129.3 cm./sec. Post. Tibial Artery, dist = 70 cm./sec. Peroneal Artery, prox = 74.4 cm./sec. Peroneal Artery, mid = 81 cm./sec. Peroneal Artery,dist = 78.8 cm./sec. Ant. Tibial Artery, prox = 103 cm./sec. Ant. Tibial Artery, mid = 100.3 cm./sec. Ant. Tibial Artery, dist = 85.7 cm./sec. Procedure Exam performed in department. /US Art Duplex Unilat Lower Ext Interpretation Summary Patent right axillar-femoral bypass with normal velocities and no stenosis iden tified. Right superficial femoral artery with >50% stenosis. Ordering Physician: Gretta Yo Referring Physician: Celia Al Performed By: Kimi Zavala RVT
--- NOTE | 2025-07-21 12:56 | CDU_ITS ---
Reason For Study Reason For Study: Carotid stenosis Rt. Velocities/BP Lt. Velocities/BP Prox CCA 99.2/5.8 cm/sec. Prox CCA 75.4/11.5 cm/sec. Mid CCA 96/9.1 cm/sec. Mid CCA 85.1/12.6 cm/sec. Dist CCA 96/10.2 cm/sec. Dist CCA 69.1/12.6 cm/sec. Prox ICA 135.7/15.2 cm/sec. Prox ICA 130.2/24.8 cm/sec. Mid ICA 119.2/16 cm/sec. Mid ICA 56.4/13.5 cm/sec. Dist ICA 123.6/11.6 cm/sec. Dist ICA 52.2/14.55 cm/sec. Rt. ICA/CCA = 1.41. Lt. ICA/CCA = 1.53. Prox ECA 93.7 cm/sec. Prox ECA 75.3 cm/sec. Rt. Vert. 45.4/9.1 cm/sec. Lt. Vert. 68.3/9.7 cm/sec. Right Extracranial There is heterogeneous, irregular atherosclerotic plaque noted in the right common carotid artery. There is heterogeneous, irregular atherosclerotic plaque noted in the right internal carotid artery. There is heterogeneous, irregular atherosclerotic plaque noted in the right external carotid artery. Antegrade flow is noted in the right vertebral artery. Left Extracranial There is heterogeneous, irregular atherosclerotic plaque noted in the left common carotid artery. There is heterogeneous, irregular atherosclerotic plaque noted in the left internal carotid artery. There is heterogeneous, irregular atherosclerotic plaque noted in the left external carotid artery. Antegrade flow is noted in the left vertebral artery. Procedure This is a Carotid Duplex examination using B-mode, color flow and specral Doppler. Carotid Duplex 13127. Exam performed in department. VL/Carotid Duplex Ultrasound Interpretation Summary Moderate (50-69%) stenosis right extracranial internal carotid. Moderate (50-69%) stenosis left extracranial internal carotid. Patent and antegrade vertebrals bilaterally. Ordering Physician: Gretta Yo Referring Physician: Celia Al Performed By: Kimi Zavala RVT
--- NOTE | 2025-07-21 12:56 | ART_ITS ---
Reason For Study Reason For Study: S/P Rt ax-fem bypass with PTFE, fem endartectomy Procedure A bilateral lower extremity continuous wave Doppler with analog waveform analysis and ankle brachial indexes. Left Segmental Pressures Left brachial= 178mmHg. Left posterior tibial artery = 118mmHg. Left dorsalis pedis artery = 122mmHg. Left digit = 80 mmHg. The left dorsalis pedis waveforms are biphasic. The left posterior tibial artery waveforms are biphasic. Right Segmental Pressures Right brachial= 170mmHg. Right posterior tibial artery = 151mmHg. Right dorsalis pedis artery = 166mmHg. Right digit = 122 mmHg. The right dorsalis pedis waveforms are biphasic. The right posterior tibial artery waveforms are biphasic. Indices The right ankle brachial index by the dorsalis pedis is 0.93. The right ankle brachial index by the posterior tibial artery is 0.85. The right digital-brachial index is 0.69. The left ankle brachial index by the dorsalis pedis is 0.69. The left ankle brachial index by the posterior tibial artery is 0.66. The left digital-brachial index is 0.45. VL/Ankle Brachial Index Interpretation Summary Right JUSTYNA 0.93, mild arterial insufficiency. Doppler/PVR waveforms of the right ankle mildly diminished at rest. Left JUSTYNA 0.69, moderate arterial insufficiency. Doppler/PVR waveforms of the le ft ankle moderately diminished at rest. Ordering Physician: Gretta Yo Referring Physician: Celia Al Performed By: Kimi Zavala RVT
== END | disposition home or self-care (01) ==
LOC: CVS 12:53
PROVIDERS: PCP Student in an Organized Health Care Education/Training Program; Referring Provider Physician Assistant; Visit Provider Physician Assistant
DX: Z48.812 Encounter for surgical aftercare following surgery on the circulatory system (principal); I65.23 Occlusion and stenosis of bilateral carotid arteries
CPT/HCPCS: 93880; 93922; 93926

== ENCOUNTER 2025-07-29 22:07 | Inpatient (IN) | payer MEDICARE, SELFPAY ==
[2025-07-29 22:08] VITALS: BP 171/48; PULSE 106; RESP 18; TEMP 36.1; O2SAT 99; BMI 19.8
--- NOTE | 2025-07-29 22:27 | ED.VIS.GI ---
HPI HPI - GI History of Present Illness Chief Complaint: GI Bleed Informant: patient and family (Daughter at bedside) Nausea/Vomiting/Emesis GI Symptom: Negative for Nausea or Vomiting Diarrhea/Melena/Hematochezia GI Symptom: Positive for - (Black stool today.); Negative for Diarrhea, Melena or Hematochezia Onset: Today Stool Quality: Positive for Loose Associated Symptoms Associated Symptoms: Negative for Dysuria, Frequency, Hematuria or Urgency Narrative Narrative: 80-year-old female history of diabetes, anemia and has had 4 different blood transfusions this year, A-fib on Eliquis, prior GI bleed in March of this year and COPD. States today she felt kind of weak. Believes she is having black stool had 2 loose episodes. Came in to be evaluated. [place] lightheaded at home. Thought her blood pressure was running low. Denies any hematemesis. No nausea. No significant abdominal pain. She has had prior upper and lower endoscopy. They have never specifically found a bleeding source according to her. Prior similar symptoms: Yes Recent Illness/Hospitalization: Yes PFSH PFSH Medical History CHF exacerbation SOB (shortness of breath) Elevated brain natriuretic peptide (BNP) level Uncontrolled hypertension Atherosclerosis of right lower extremity with rest pain Diabetes mellitus, type 2 Neuropathy Wears partial dentures Post-menopausal Cancer Depression Anxiety Alcohol use Diabetes Ambulates with cane Arthritis Gout History of renal disease Excessive bleeding High cholesterol Low iron Anemia Back pain History of hiatal hernia Hypertension History of GI bleed Gastric reflux Former smoker BiPAP (biphasic positive airway pressure) dependence Chronic cough Leg cramps History of edema History of echocardiogram History of stress test History of atrial fibrillation Cardiology follow-up encounter History of CHF (congestive heart failure) Anemia Afib GI bleed COPD (chronic obstructive pulmonary disease) Hx of carotid stenosis Home Medications ?Medication ?Instructions ?Recorded ?Last Taken ?Type amlodipine 2.5 mg tablet 2.5 mg PO DAILY HTN 03/01/25 06/06/25 History apixaban 5 mg tablet (Eliquis) 5 mg PO BID BLOOD THINNER 03/01/25 06/03/25 History blood sugar diagnostic (Contour 03/01/25 Unknown History Next Test Strips) ezetimibe 10 mg tablet 10 mg PO DAILY HLD 03/01/25 06/06/25 History finerenone 10 mg tablet (Kerendia) 10 mg PO DAILY CKD 03/01/25 06/06/25 History icosapent ethyl 1 gram capsule 2 g PO BID HLD 03/01/25 06/05/25 History (Vascepa) linagliptin 2.5 mg-metformin ER 1 tab PO BID DM 03/01/25 06/03/25 History 1,000 mg tablet,extended release 24 hr (Jentadueto XR) pantoprazole 40 mg tablet,delayed 40 mg PO DAILY GERD 03/01/25 06/06/25 History release rosuvastatin 10 mg tablet 10 mg PO QHS HLD 03/01/25 06/05/25 History tiotropium bromide 2.5 2 puff inhalation DAILY LUNG 03/01/25 06/05/25 History mcg/actuation mist for inhalation DISEASE (Spiriva Respimat) carvedilol 12.5 mg tablet 12.5 mg PO BID HTN 03/11/25 06/06/25 History losartan 100 mg tablet 100 mg PO DAILY HTN 03/11/25 06/06/25 History sertraline 25 mg tablet 25 mg PO QHS MOOD 03/11/25 06/05/25 History albuterol sulfate 90 mcg/actuation 2 puff inhalation Q4H PRN 04/12/25 06/05/25 History aerosol inhaler (Ventolin HFA) shortness of breath or wheezing cholecalciferol (vitamin D3) 50 50 mcg PO QDAY SUPPLEMENT 04/12/25 Unknown History mcg (2,000 unit) capsule ferrous sulfate 137 mg (45 mg 137 mg PO DAILY SUPPLEMENT 05/19/25 06/06/25 History iron) tablet,extended release (Slow Fe) BIPAP -Bilevel Positive Airway INGA 06/06/25 Unknown History Pressure ([facility] INFORMATIONAL USE ONLY) acetaminophen 325 mg tablet 650 mg (2 x 325 mg) PO Q6H PRN PRN 06/09/25 Unknown Rx Pain 1-10 Or Fever >100.7 #0 tabs oxycodone 5 mg tablet 5 mg PO Q8H PRN PRN Pain Score 06/09/25 Unknown Rx 4-10 5 days #15 tabs cilostazol 50 mg tablet 50 mg PO BID #60 tabs 07/27/25 Unknown Rx furosemide 20 mg tablet (Lasix) 20 mg PO DAILY 07/29/25 Unknown History Allergy/AdvReac Type Severity Reaction Status Date / Time isosulfan blue Allergy Severe Anaphylaxis Verified 07/29/25 22:09 methylene blue Allergy Severe Anaphylaxis Verified 07/29/25 22:09 Sulfa (Sulfonamide Allergy Rash Verified 07/29/25 22:09 Antibiotics) Family History Mother Cancer Ovarian cancer Hypertension Heart disease Father Cancer Lung cancer. Hypertension Sister Kidney disease Sister Kidney disease Surgical History History of left mastectomy History of right mastectomy History of esophagogastroduodenoscopy (EGD) History of bronchoscopy History of cardiac ablation History of carotid endarterectomy History of bilateral breast reduction surgery History of colonoscopy History of cataract extraction (~2005) H/O: hysterectomy (~1998) Social History household members: spouse Smoking Status: Former smoker alcohol intake: current alcohol intake frequency: 0-2 drinks per day Alcohol type: wine substance use type: does not use ROS ROS ED Constitutional Constitutional ED: Denies chills or fever(s) ENT ENT ED: Denies ear pain Cardiovascular Cardiovascular: Denies chest pain Respiratory/Chest Respiratory/Chest: Denies cough or dyspnea Gastrointestinal Gastrointestinal: Reports other Details: Black stool today. ; Denies abdominal pain Genitourinary Genitourinary ED: Denies dysuria or hematuria Musculoskeletal Musculoskeletal: Denies arthralgias Integumentary Denies abscess Neurologic Neurologic: Denies headache(s) Psychiatric Psychiatric: Denies anxiety Endocrine Endocrinology: Denies polydipsia Hematologic/Lymphatic Hematologic/Lymphatic: Reports easy bleeding, easy bruising and other Details: On Eliquis ; Denies lymphadenopathy Allergic/Immunologic Allergic/Immunologic ED: Denies mouth swelling, tongue swelling or urticaria EXAM Physical Exam Narrative Exam Narrative: 80-year-old female vital signs are stable he febrile. Her initial blood pressure was 171/48. She is in no distress. H EENT exam pupils round react light. Moist mucous membranes. Neck nontender. Lungs clear to auscultation bilaterally. Heart rate about 106 no murmur. Chest wall and ribs nontender. Abdomen soft, nontender, nondistended, normal bowel sounds without peritoneal signs. Rectal exam done with female nurse and the patient's daughter present in the room she does have black stool which could be secondary to upper GI bleed versus she is also on iron. Moving all 4 extremities. Nontender no edema. Normal strength. Neurologically she is awake alert. Skin she is pale in color. Const Vital Signs: 07/29/25 22:08 07/29/25 22:50 07/29/25 23:00 Temperature 97 F L Temperature Source Temporal Pulse Rate 106 H 76 88 Respiratory Rate 18 14 16 Blood Pressure 171/48 H 116/41 L 99/72 Blood Pressure Mean 89 66 81 Pulse Ox 99 100 100 Oxygen Delivery Method Room Air Room Air MDM MDM MDM Narrative Medical decision making narrative: 80-year-old female history of prior GI bleed on Eliquis due to A-fib concern for upper GI bleed. She given IV Protonix. Screening labs to be obtained. Typed and screened and typed and crossed. Most likely will need to be admitted. Currently she is stable. Patient was typed and crossed. Given her hemoglobin 6.7 should be transfused 2 units. I had a type and cross for tomorrow to have on hold. Hospitalist and GI are on page for admission. Repeat exam patient doing well 11 5 PM. She is sitting up. We discussed her test results. Diagnosis. Blood transfusion. She is comfortable with the plan of the admission. Hospitalist notes. GI is still on page History & Record Review Discussion w/independent historian: Patient and Family Additional record(s) reviewed:: Prior inpatient record, Prior outpatient record, Prior ED visit and Prior labs Lab Data Attestation: I reviewed the patient's lab results. Lab results narrative: CBC shows white count 6.5. H&H is 6.7 and 21.1. A month and a half ago her last hemoglobin was 10.3. Her hemoglobin typically runs between 6 and 10. PT/INR of 19 and 1.6. PTT 37. BMP shows anion gap of 17. BUN and creatinine of 52 and 1.23 consistent with upper GI bleed. Could also be dehydration. Leukos 130. Labs: Laboratory Results - last 24 hr 07/29/25 22:25 WBC 6.5 RBC 2.22 L Hgb 6.7 L Hct 21.1 L MCV 95.0 MCH 30.2 MCHC 31.8 L RDW Std Deviation 58.4 H RDW Coeff of [place] 16.8 H Plt Count 169 MPV 10.1 Immature Gran % (Auto) 0.500 Neut % (Auto) 74.8 H Lymph % (Auto) 14.5 L Lucas % (Auto) 8.3 Eos % (Auto) 1.1 Baso % (Auto) 0.8 Absolute Neuts (auto) 4.9 Absolute Lymphs (auto) 0.94 Nucleated RBC % 0 PT 19.1 H INR 1.6 APTT 37.1 H Sodium 133 Potassium 4.9 Chloride 96 L Carbon Dioxide 19.9 L Anion Gap 17 H BUN 52 H Creatinine 1.23 H Estim Creat Clear Calc 33.61 L Est GFR (MDRD) Non-Af 45 L BUN/Creatinine Ratio 42.5 H Glucose 130 H Calcium 8.8 Discharge Plan Dx/Rx/DC Orders Clinical Impression: Acute upper gastrointestinal bleeding, Acute anemia, Chronic anticoagulation, History of atrial fibrillation, History of vascular surgery Disposition Disposition: Acute Care [facility]
[2025-07-29 22:39] LABS: Hematocrit 21.1 % (37-47); Hemoglobin 6.7 g/dL (12.0-15.0); Immature Granulocytes Count 0.030 X10^3/uL (0.0-0.0); Mean Corp Hgb Conc 31.8 g/dL (32-36); Mean Corpuscular Volume 95.0 fL (81-99); Mean Platelet Vol. 10.1 fl (6.2-12.0); NRBC Flagged by Analyzer 0 % (0-5); Platelet Count 169 K/mm3 (150-450); RBC Distribution Width CV 16.8 % (11.6-14.6); RBC Distribution Width SD 58.4 fl (35.1-43.9); Red Blood Count 2.22 M/mm3 (4.2-5.4); White Blood Count 6.5 K/mm3 (4.4-11.0)
[2025-07-29 22:47] LABS: Prothrombin Time (Protime)PT. 19.1 SECONDS (11.7-14.9)
[2025-07-29 22:48] LABS: Partial Thromboplast Time 37.1 Seconds (24.1-36.2)
[2025-07-29] MEDS: Pantoprazole Sodium 80 MG in 0.9% Normal Saline (50mL Bag) 15 ML 420 MG IV BOLUS (22:49)
[2025-07-29 22:50] VITALS: BP 116/41; PULSE 76; RESP 14; O2SAT 100
[2025-07-29 22:56] LABS: Anion Gap 17 (5-15); BUN 52 mg/dL (4-19); BUN/Creat Ratio 42.5 RATIO (10-20); Calcium,Total 8.8 mg/dL (7.6-11.0); Carbon Dioxide 19.9 mmol/L (21.0-32.0); Chloride 96 mmol/L (98-108); Estimated Creatinine Clearance 33.61 ml/min (50-250); Glucose 130 mg/dL (70-99); Potassium 4.9 mmol/L (3.3-5.1)
[2025-07-29 23:00] VITALS: BP 99/72; PULSE 88; RESP 16; O2SAT 100
--- NOTE | 2025-07-29 23:38 | PCM.HP.STD ---
[facility] - General General Date of Admission: 07/29/25 Date of Service: 07/29/25 Chief Complaint: black stools [facility] Narrative ROLANDO LOVE, is a 80 F who presents with pmhx of GI bleed unclear source, right fem bypass with flap per Dr. aNva 06/06/25 on cilostazol and eliquis, Afib s/p ablation, CHF with preserved EF and stage 3 diastolic dysfunction, who presents to the ER with black stools. She had two episodes of loose black stools today. She had some midepigastric pain yesterday but none today. No N/V. She was dizzy and LH at rest and with exertion. She came to the ER and was found to have black stool on rectal, Hgb 6.7. She last took Eliquis this AM, she also took cilostazol today - she has not been taking cilostazol since her procedure but decided to take it today. She has had upper and lower scopes this year with her GI doctor [place] in [place] which revealed no source of bleed but did show hiatal hernia and hemorrhoids. She planned to have a capsule endoscopy as an outpatient but has not done it yet. Currently resting comfortably in bed NAD with no complaints. [facility] Medical History CHF exacerbation SOB (shortness of breath) Elevated brain natriuretic peptide (BNP) level Uncontrolled hypertension Atherosclerosis of right lower extremity with rest pain Diabetes mellitus, type 2 Neuropathy Wears partial dentures Post-menopausal Cancer Depression Anxiety Alcohol use Diabetes Ambulates with cane Arthritis Gout History of renal disease Excessive bleeding High cholesterol Low iron Anemia Back pain History of hiatal hernia Hypertension History of GI bleed Gastric reflux Former smoker BiPAP (biphasic positive airway pressure) dependence Chronic cough Leg cramps History of edema History of echocardiogram History of stress test History of atrial fibrillation Cardiology follow-up encounter History of CHF (congestive heart failure) Anemia Afib GI bleed COPD (chronic obstructive pulmonary disease) Hx of carotid stenosis Home Medications ?Medication ?Instructions ?Recorded ?Last Taken ?Type amlodipine 2.5 mg tablet 2.5 mg PO DAILY HTN 03/01/25 06/06/25 History apixaban 5 mg tablet (Eliquis) 5 mg PO BID BLOOD THINNER 03/01/25 06/03/25 History blood sugar diagnostic (Contour 03/01/25 Unknown History Next Test Strips) ezetimibe 10 mg tablet 10 mg PO DAILY HLD 03/01/25 06/06/25 History finerenone 10 mg tablet (Kerendia) 10 mg PO DAILY CKD 03/01/25 06/06/25 History icosapent ethyl 1 gram capsule 2 g PO BID HLD 03/01/25 06/05/25 History (Vascepa) linagliptin 2.5 mg-metformin ER 1 tab PO BID DM 03/01/25 06/03/25 History 1,000 mg tablet,extended release 24 hr (Jentadueto XR) pantoprazole 40 mg tablet,delayed 40 mg PO DAILY GERD 03/01/25 06/06/25 History release rosuvastatin 10 mg tablet 10 mg PO QHS HLD 03/01/25 06/05/25 History tiotropium bromide 2.5 2 puff inhalation DAILY LUNG 03/01/25 06/05/25 History mcg/actuation mist for inhalation DISEASE (Spiriva Respimat) carvedilol 12.5 mg tablet 12.5 mg PO BID HTN 03/11/25 06/06/25 History losartan 100 mg tablet 100 mg PO DAILY HTN 03/11/25 06/06/25 History sertraline 25 mg tablet 25 mg PO QHS MOOD 03/11/25 06/05/25 History albuterol sulfate 90 mcg/actuation 2 puff inhalation Q4H PRN 04/12/25 06/05/25 History aerosol inhaler (Ventolin HFA) shortness of breath or wheezing cholecalciferol (vitamin D3) 50 50 mcg PO QDAY SUPPLEMENT 04/12/25 Unknown History mcg (2,000 unit) capsule ferrous sulfate 137 mg (45 mg 137 mg PO DAILY SUPPLEMENT 05/19/25 06/06/25 History iron) tablet,extended release (Slow Fe) BIPAP -Bilevel Positive Airway INGA 06/06/25 Unknown History Pressure ([facility] INFORMATIONAL USE ONLY) acetaminophen 325 mg tablet 650 mg (2 x 325 mg) PO Q6H PRN PRN 06/09/25 Unknown Rx Pain 1-10 Or Fever >100.7 #0 tabs oxycodone 5 mg tablet 5 mg PO Q8H PRN PRN Pain Score 06/09/25 Unknown Rx 4-10 5 days #15 tabs cilostazol 50 mg tablet 50 mg PO BID #60 tabs 07/27/25 Unknown Rx furosemide 20 mg tablet (Lasix) 20 mg PO DAILY 07/29/25 Unknown History Allergy/AdvReac Type Severity Reaction Status Date / Time isosulfan blue Allergy Severe Anaphylaxis Verified 07/29/25 22:09 methylene blue Allergy Severe Anaphylaxis Verified 07/29/25 22:09 Sulfa (Sulfonamide Allergy Rash Verified 07/29/25 22:09 Antibiotics) Family History Mother Cancer Ovarian cancer Hypertension Heart disease Father Cancer Lung cancer. Hypertension Sister Kidney disease Sister Kidney disease Surgical History History of left mastectomy History of right mastectomy History of esophagogastroduodenoscopy (EGD) History of bronchoscopy History of cardiac ablation History of carotid endarterectomy History of bilateral breast reduction surgery History of colonoscopy History of cataract extraction (~2005) H/O: hysterectomy (~1998) Social History household members: spouse Smoking Status: Former smoker alcohol intake: current alcohol intake frequency: 0-2 drinks per day Alcohol type: wine substance use type: does not use ROS Constitutional Constitutional: Denies chills, fatigue or fever(s) Cardiovascular Cardiovascular: Reports lightheadedness; Denies chest pain, dyspnea on exertion or edema Respiratory/Chest Respiratory/Chest: Denies cough, dyspnea or wheezing Gastrointestinal Gastrointestinal: Reports abdominal pain, hematochezia and loose stools; Denies coffee ground emesis, nausea or vomiting Genitourinary Genitourinary: Denies burning urination Musculoskeletal Musculoskeletal: Denies arthralgias Neurologic Neurologic: Denies confusion Psychiatric Psychiatric: Denies anxiety Endocrine Endocrinology: Denies change in body appearance Hematologic/Lymphatic Hematologic/Lymphatic: Reports anemia and other Details: dizziness/lightheadedness Allergic/Immunologic Allergic/Immunologic: Denies rhinitis Vital Signs Vital Signs Vital Signs: 07/29/25 22:08 07/29/25 22:50 07/29/25 23:00 Temperature 97 F L Temperature Source Temporal Pulse Rate 106 H 76 88 Respiratory Rate 18 14 16 Blood Pressure 171/48 H 116/41 L 99/72 Blood Pressure Mean 89 66 81 Pulse Ox 99 100 100 Oxygen Delivery Method Room Air Room Air Weight Weight: 57.4 kg Body Mass Index (BMI) 19.8 Physical Exam Const alert, oriented x3 and no apparent distress General Appearance: cooperative HEENT normocephalic and head/scalp atraumatic Eyes PERRL and EOMs intact bilaterally Neck no lymphadenopathy Resp normal respiratory effort and clear to auscultation bilaterally Cardio regular rate and regular rhythm; Negative for no murmurs GI Palpation: tender Positive for other (midepigastric); Negative for guarding Extremity normal to inspection and no clubbing, cyanosis or edema Neuro oriented x3 Psych affect normal Results Lab / Micro Data 07/29/25 22:25 07/29/25 22:25 Labs: Laboratory Results - last 24 hr 07/29/25 22:25: WBC 6.5, RBC 2.22 L, Hgb 6.7 L, Hct 21.1 L, MCV 95.0, MCH 30.2, MCHC 31.8 L, RDW Std Deviation 58.4 H, RDW Coeff of [place] 16.8 H, Plt Count 169, MPV 10.1, Immature Gran % (Auto) 0.500, Neut % (Auto) 74.8 H, Lymph % (Auto) 14.5 L, [place] % (Auto) 8.3, Eos % (Auto) 1.1, Baso % (Auto) 0.8, Absolute Neuts (auto) 4.9, Absolute Lymphs (auto) 0.94, Nucleated RBC % 0, PT 19.1 H, INR 1.6, APTT 37.1 H, Sodium 133, Potassium 4.9, Chloride 96 L, Carbon Dioxide 19.9 L, Anion Gap 17 H, BUN 52 H, Creatinine 1.23 H, Estim Creat Clear Calc 33.61 L, Est GFR (MDRD) Non-Af 45 L, BUN/Creatinine Ratio 42.5 H, Glucose 130 H, Calcium 8.8, Blood Type O POSITIVE, Antibody Screen NEGATIVE, Crossmatch See Detail Assessment & Plan Assessment/Plan (1) Acute anemia: PLAN: 1. Acute blood loss anemia 2/2 GI bleed unclear source, hx GI bleed and iron deficiency anemia - hold eliquis and cilostazol. start protonix drip. T&C 2 units with 2 more held. Q4H H&H. IVF with NS 75 cc/hr. NPO. GI consulted. Hx CHF add lasix between units if needed. Check Mag. 2. recent right femoral bypass with Dr. Nava as above holding eliquis and cilostazol due to bleed however pt will need started on heparin drip which will start in AM. Dr. Nava consulted. 3. CKDII, with acute renal insufficiency - trend BMP, hold losartan. 4. hx Afib s/p ablation - eliquis held as above. continue coreg. 5. hx chronic CHF with preserved EF and stage 3 diastolic dysfunction. lasix between blood as needed. 6. DMt2 - hold home regimen provide SSI, accuchecks q6h while NPO. 7. HTN - elevated on arrival 174/63 now 99/72, continue coreg, amlodipine, hold if BP trending low. hold losartan 8. INGA - on bipap 9. Chronic COPD - no acute exacerbation - albuterol prn 10. Hx GERD, hiatal hernia - PPI as above 11. Hx hemorrhoids per pt found on recent colonoscopy 12. HLD on statin, zetia, vascepa 13. Hx anxiety / depression - on sertraline DVT ppx: SCDs, heparin drip to start in AM Code status: full code, discussed with patient This patient was seen by Eugene Manzano PA-C under the supervision of Dr. Saucedo.
[2025-07-30] VITALS (20 sets, daily range): BP systolic 123–184; BP diastolic 38–75; PULSE 71–89; RESP 14–18; TEMP 36.4–37.2; O2SAT 94–100; BMI 19.5
[2025-07-30 00:27] LABS: Magnesium 1.7 mg/dL (1.5-2.2)
[2025-07-30] MEDS: Pantoprazole Sodium 80 MG in 0.9% Normal Saline (100mL Bag) 80 ML 10 MG CONT INF ×3 (02:10→22:00)
[2025-07-30] MEDS: 0.9% Saline Lock 10 ML Syringe IV (02:11)
[2025-07-30 07:22] LABS: Hematocrit 27.6 % (37-47); Hemoglobin 9.1 g/dL (12.0-15.0); Immature Granulocytes Count 0.030 X10^3/uL (0.0-0.0); Mean Corp Hgb Conc 33.0 g/dL (32-36); Mean Corpuscular Volume 90.8 fL (81-99); Mean Platelet Vol. 9.9 fl (6.2-12.0); NRBC Flagged by Analyzer 0 % (0-5); Platelet Count 138 K/mm3 (150-450); RBC Distribution Width CV 16.4 % (11.6-14.6); RBC Distribution Width SD 53.4 fl (35.1-43.9); Red Blood Count 3.04 M/mm3 (4.2-5.4); White Blood Count 5.9 K/mm3 (4.4-11.0)
[2025-07-30 08:05] LABS: AST(SGOT) 18 U/L (<=31); Alanine Aminotransfer ALT/SGPT 12 U/L (<=34); Albumin, Serum 3.4 g/dL (3.4-4.8); Alkaline Phosphatase 42 U/L (35-104); BUN 52 mg/dL (4-19); BUN/Creat Ratio 49.3 RATIO (10-20); Calcium,Total 8.6 mg/dL (7.6-11.0); Carbon Dioxide 20.9 mmol/L (21.0-32.0); Chloride 103 mmol/L (98-108); Estimated Creatinine Clearance 38.82 ml/min (50-250); Globulin 2.3 g/dL (2.2-4.2); Glucose 119 mg/dL (70-99); Potassium 4.6 mmol/L (3.3-5.1)
[2025-07-30 08:06] LABS: Anion Gap 11 (5-15)
--- NOTE | 2025-07-30 08:43 | PN.HOSP_ITS ---
Reason for Visit Chief Complaint: black stools Subjective Subjective Feeling okay at present. Denies any medication or melena. Has had extensive workup for the GI bleed. Was to see gastroenterology up in [place] for capsule endoscopy in the near future. Objective Data Objective Data Vital Signs: Vital Signs Temp Pulse Resp BP Pulse Ox O2 Del Method 36.4 C L 74 18 139/38 H 98 Room Air 07/30/25 07:15 07/30/25 07:15 07/30/25 07:15 07/30/25 07:15 07/30/25 07:15 07/30/25 07:15 Oxygen Delivery Method Room Air Weight: 56.6 kg Body Mass Index (BMI) 19.5 Intake & Output: Intake and Output for Last 24 Hours 07/28/25 07/29/25 07/30/25 23:59 23:59 23:59 Intake Total 35 / 35 800 / 800 Balance 35 / 35 800 / 800 Lab / Micro Data 07/30/25 12:04 07/30/25 07:15 Labs: Laboratory Results - last 24 hr 07/29/25 22:25: WBC 6.5, RBC 2.22 L, Hgb 6.7 L, Hct 21.1 L, MCV 95.0, MCH 30.2, MCHC 31.8 L, RDW Std Deviation 58.4 H, RDW Coeff of [place] 16.8 H, Plt Count 169, MPV 10.1, Immature Gran % (Auto) 0.500, Neut % (Auto) 74.8 H, Lymph % (Auto) 14.5 L, [place] % (Auto) 8.3, Eos % (Auto) 1.1, Baso % (Auto) 0.8, Absolute Neuts (auto) 4.9, Absolute Lymphs (auto) 0.94, Nucleated RBC % 0, PT 19.1 H, INR 1.6, APTT 37.1 H, Sodium 133, Potassium 4.9, Chloride 96 L, Carbon Dioxide 19.9 L, A nion Gap 17 H, BUN 52 H, Creatinine 1.23 H, Estim Creat Clear Calc 33.61 L, Est GFR (MDRD) Non-Af 45 L, BUN/Creatinine Ratio 42.5 H, Glucose 130 H, Calcium 8.8, Magnesium 1.7, Blood Type O POSITIVE, Antibody Screen NEGATIVE, Crossmatch See Detail 12/14/25 02:14: POC Glucose 108 H 07/30/25 06:08: POC Glucose 111 H 07/30/25 07:15: WBC 5.9, RBC 3.04 L, Hgb 9.1 L, Hct 27.6 L, MCV 90.8, MCH 29.9, MCHC 33.0, RDW Std Deviation 53.4 H, RDW Coeff of [place] 16.4 H, Plt Count 138 L, MPV 9.9, Immature Gran % (Auto) 0.500, Neut % (Auto) 68.0, Lymph % (Auto) 16.8 L , [place] % (Auto) 11.4 H, Eos % (Auto) 2.5, Baso % (Auto) 0.8, Absolute Neuts (auto) 4.0, Absolute Lymphs (auto) 0.99, Nucleated RBC % 0, Sodium 135, Potassium 4.6, Chloride 103, Carbon Dioxide 20.9 L, Anion Gap 11, BUN 52 H, Creatinine 1.05, Estim Creat Clear Calc 38.82 L, Est GFR (MDRD) Non-Af 54 L, B UN/Creatinine Ratio 49.3 H, Glucose 119 H, Calcium 8.6, Total Bilirubin 1.46 H, AST 18, ALT 12, Alkaline Phosphatase 42, Total Protein 5.7 L, Albumin 3.4, Globulin 2.3, Albumin/Globulin Ratio 1.5 Physical Exam Const alert and no apparent distress Resp normal respiratory effort and no retractions Cardio regular rate, regular rhythm, S1 normal heart sound and S2 normal heart sound GI normal to inspection, nondistended, normoactive bowel sounds, soft to palpation, non-tender and non-distended Neuro Sensorium / Orientation: awake and alert Assessment & Plan Assessment/Plan (1) Acute anemia: PLAN: Acute on chronic blood loss anemia * 2/2 GI bleed unclear source * holding eliquis and cilostazol. * start protonix drip. T&C 2 units with 2 more held. Q4H H&H. IVF with NS 75 cc/hr. NPO. GI consulted. * Patient on full liquid diets. recent right femoral bypass * holding eliquis and cilostazol due to bleed * on heparin gtt, cautiously. Continue to monitor H/H. * vascular surgery consult Additional Co-morbidities: * HF unclear type: Will maintain on cardiac telemetry, monitor I/Os, magnesium level requested, holding OKSANA inhibitor/Lasix given renal insufficiency/elevated creatinine concerns and hypotension, if necessary may pulse dose with Lasix between PRBC units, will continue patient statin therapy, holding Eliquis as noted with plan for initiation of heparin drip in a.m. per discussion with vascular surgery with no bolus. * Hypertension: Holding medication given lower BP in the ED, will add back if clinically appropriate, as noted plan for pulse dose Lasix if BP appropriate if necessary between PRBC units for overload concern. * Hyperlipidemia: Continue home statin regimen. * COPD: Will temporally hold home inhaler, will maintain on ATC DuoNeb therapy, PRN albuterol, HOB, IS parameters. * Anxiety and depression: Will continue patient home sertraline regimen * GERD: As noted maintained on continuous Protonix drip. * Diabetes mellitus type II: Hold oral home regimen, n.p.o. status as noted above thus will maintain on every 6 hours accu checks w/ ISS. * INGA: BiPAP nightly. DVT prophylaxis: SCDs, plan as noted at next dose due of Eliquis in AM which is on hold to initiate heparin drip at lower dose with no bolus per discussion with vascular surgery. CODE status: Full Code status. . Charges/Coding Visit Charges Inpatient E&M: 95027 [facility] Hosp L2
[2025-07-30] MEDS: HEPARIN/D5w 25,000 UNITS 25,000 UNITS/250 ML IV.SOLN. 6.9 UNITS CONT INF (09:33)
[2025-07-30 12:13] LABS: Hematocrit 24.7 % (37-47); Hemoglobin 8.4 g/dL (12.0-15.0)
[2025-07-30 15:26] LABS: Partial Thromboplast Time 49.7 Seconds (24.1-36.2)
[2025-07-30 21:46] LABS: Partial Thromboplast Time 48.8 Seconds (24.1-36.2)
[2025-07-31] VITALS (16 sets, daily range): BP systolic 123–177; BP diastolic 41–64; PULSE 82–102; RESP 16–18; TEMP 36.1–37.1; O2SAT 97–100; BMI 20.5
[2025-07-31 01:10] LABS: Hematocrit 24.0 % (37-47); Hemoglobin 8.0 g/dL (12.0-15.0)
[2025-07-31 04:23] LABS: Hematocrit 23.8 % (37-47); Hemoglobin 8.1 g/dL (12.0-15.0); Immature Granulocytes Count 0.020 X10^3/uL (0.0-0.0); Mean Corp Hgb Conc 34.0 g/dL (32-36); Mean Corpuscular Volume 89.1 fL (81-99); Mean Platelet Vol. 10.0 fl (6.2-12.0); NRBC Flagged by Analyzer 0 % (0-5); Platelet Count 124 K/mm3 (150-450); RBC Distribution Width CV 17.7 % (11.6-14.6); RBC Distribution Width SD 56.6 fl (35.1-43.9); Red Blood Count 2.67 M/mm3 (4.2-5.4); White Blood Count 5.6 K/mm3 (4.4-11.0)
[2025-07-31 04:40] LABS: Partial Thromboplast Time 51.5 Seconds (24.1-36.2)
[2025-07-31 04:47] LABS: Anion Gap 10 (5-15); BUN 44 mg/dL (4-19); BUN/Creat Ratio 50.1 RATIO (10-20); Calcium,Total 8.7 mg/dL (7.6-11.0); Carbon Dioxide 21.8 mmol/L (21.0-32.0); Chloride 107 mmol/L (98-108); Estimated Creatinine Clearance 49.09 ml/min (50-250); Glucose 103 mg/dL (70-99); Potassium 4.2 mmol/L (3.3-5.1)
[2025-07-31] MEDS: Pantoprazole Sodium 80 MG in 0.9% Normal Saline (100mL Bag) 80 ML 10 MG CONT INF ×2 (07:30→20:29)
[2025-07-31] MEDS: FINERENONE 10 MG TABLET PO (07:42)
--- NOTE | 2025-07-31 09:48 | PCM.PN.HOSP ---
Reason for Visit Chief Complaint: black stools Subjective Subjective Patient resting comfortably in bed this a.m., denies abdominal pain or other acute complaints at time of evaluation Objective Data Objective Data Vital Signs: Vital Signs Temp Pulse Resp BP Pulse Ox O2 Del Method 97.4 F L 102 H 16 133/54 H 100 Room Air 07/31/25 16:44 07/31/25 16:45 07/31/25 16:45 07/31/25 16:45 07/31/25 16:45 07/31/25 16:45 Oxygen Delivery Method Room Air Weight: 59.3 kg Body Mass Index (BMI) 20.5 Intake & Output: Intake and Output for Last 24 Hours 07/29/25 07/30/25 07/31/25 23:59 23:59 23:59 Intake Total 35 1089.60 / 1329.60 616.50 / 616.50 Balance 35 35 1089.60 / 1329.60 616.50 / 616.50 Lab / Micro Data 07/31/25 04:00 07/31/25 04:00 Labs: Laboratory Results - last 24 hr 07/30/25 18:17: POC Glucose 144 H 07/30/25 21:30: APTT 48.8 H 07/31/25 00:59: POC Glucose 101 07/31/25 01:05: Hgb 8.0 L, Hct 24.0 L 07/31/25 04:00: WBC 5.6, RBC 2.67 L, Hgb 8.1 L, Hct 23.8 L, MCV 89.1, MCH 30.3, MCHC 34.0, RDW Std Deviation 56.6 H, RDW Coeff of [place] 17.7 H, Plt Count 124 L, MPV 10.0, Immature Gran % (Auto) 0.400, Neut % (Auto) 60.4, Lymph % (Auto) 22.2, [place] % (Auto) 10.3 H, Eos % (Auto) 5.6 H, Baso % (Auto) 1.1 H, Absolute Neuts (auto) 3.4, Absolute Lymphs (auto) 1.23, Nucleated RBC % 0, APTT 51.5 H, Sodium 139, Potassium 4.2, Chloride 107, Carbon Dioxide 21.8, Anion Gap 10, BUN 44 H, Creatinine 0.87, Estim Creat Clear Calc 49.09 L, Est GFR (MDRD) Non-Af 68, BUN/Creatinine Ratio 50.1 H, Glucose 103 H, Calcium 8.7 07/31/25 10:50: APTT 63.3 H 07/31/25 12:03: POC Glucose 111 H 07/31/25 14:52: APTT 45.2 H Physical Exam Narrative General: Alert, oriented, no apparent distress HEENT: Atraumatic, normocephalic Eyes: Anicteric, normal conjunctiva, extraocular movements grossly intact Neck: Supple Respiratory: Clear to auscultation bilaterally, normal respiratory effort Cardiovascular: Regular rate GI: Soft, nontender, nondistended Extremities: No edema Musculoskeletal: Moving all extremities Neuro: No overt focal neurological deficits Skin: No rashes appreciated Psych: Cooperative Assessment & Plan Assessment/Plan (1) Acute anemia: PLAN: Plan # Acute on chronic anemia - Suspected to be secondary to GI bleed of unclear source - Was supposed undergo capsule endoscopy in [place] in outpatient basis however given her anemia she required admission and further workup - Patient on PPI drip - Transfused 2 units - Eliquis and cilostazol held and patient transition to heparin drip - GI consulted - Patient for upper EGD today # Recent right femoral bypass -patient with Eliquis and cilostazol held due to bleeding and was transition to heparin drip - Vascular consulted and okay with holding cilostazol - Patient on Eliquis primarily for A-fib, if unable to be on full dose anticoagulation would recommend considering at least an aspirin 81 mg - Further recommendations and treatment pending scope #Paroxysmal Atrial Fibrillation -Rate control: Restart beta-luna but at lower dose given stability in blood pressure, uptitrate as tolerated -Anticoagulation: Transition from Eliquis to heparin drip #INGA -Continue home NIPPV if applicable #Hypertension - Holding home antihypertensives aside from carvedilol which will be started back at low-dose #Depression/anxiety -Continue home medications #GERD -Continue PPI #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 -Glucose checks and sliding scale insulin - Holding home oral medications, suspect these can be resumed on discharge #Hx COPD -nebs while admitted #DVT ppx: Presently on heparin drip Geovanna Kauffman MD Charges/Coding Visit Charges Inpatient E&M: 48676 Subs Hosp L2
[2025-07-31 11:13] LABS: Partial Thromboplast Time 63.3 Seconds (24.1-36.2)
--- NOTE | 2025-07-31 11:45 | CASEMGMT ---
RN CM Face to Face with patient for initial transition planning/care coordination assessment. RN CM introduced self and role at [facility]. Patient lying in bed, alert and oriented. Patient willing to participate in assessment and is able to answer all questions appropriately. Care providers, pharmacy, and demographics verified. Strata: 3 PCP: Celia Al Specialists: Angeline - Hematology, Siena - Pulmonology, Queenie - Cardiology, Bakari - nephrology, Nolan - Podiatry, Brandy - Vascular, Ankit - Surgery Preferred Pharmacy: [facility] Insurance: [facility] Prescription Benefit: yes Living Will/HPOA: yes, daughter Ene Penelope LNOK: , son, daughter Living Arrangements: Patient lives with son and in a single story home with 1 step and grab bar at home. Patient states she is independent at home. Transportation: son, daughter DME/HHC: Patient has shower chair, raised toilet, cane, rollator, grab bars, bipap, pulse ox at home. [facility] No previous SNF Patient wishes to discharge home, denies need for home health at this time. Patient states he has no further needs or concerns at this time. CM to follow for discharge planning needs that may arise. Disposition Plan: Patient to discharge home with family support and follow-up plans in place. Kimi MCWILLIAMS, RN, CM
--- NOTE | 2025-07-31 13:01 | CON.PCM.GI_ITS ---
HPI Consult Data Date of Consult: 07/31/25 HPI Narrative Reason for Consultation: GI bleed HPI Narrative: ROLANDO LOVE, is a 80-year-old female with a medical history significant for atrial fibrillation (Afib) on Eliquis (apixaban), iron deficiency anemia (LOUISE) status post bone marrow biopsy with recent iron transfusions, and recent right axillary to femoral bypass, common femoral, proximal superficial femoral artery endarterectomy, and sartorius flap performed on 06/06/25. She presents to the Emergency Room (ER) with a chief complaint of?black stools.? * HPI (History of Present Illness):?The patient reports two episodes of loose black stools today. She experienced some mild epigastric pain yesterday, but none today. She denies nausea and vomiting (N/V). She describes feeling dizzy and lightheaded (LH) at rest and with exertion. * Medications:?She last took her Eliquis (apixaban) this morning. She also took cilostazol today, despite not having taken it since her recent procedure. * Recent Workup:?She states she had both upper and lower scopes this year with her GI doctor, which revealed no active source of bleeding but did show a hiatal hernia and hemorrhoids. A capsule endoscopy was planned as an outpatient but has not yet been performed. * ?Labs:?Hemoglobin (Hgb) of 6.7 g/dL [facility] Medical History CHF exacerbation SOB (shortness of breath) Elevated brain natriuretic peptide (BNP) level Uncontrolled hypertension Atherosclerosis of right lower extremity with rest pain Diabetes mellitus, type 2 Neuropathy Wears partial dentures Post-menopausal Cancer Depression Anxiety Alcohol use Diabetes Ambulates with cane Arthritis Gout History of renal disease Excessive bleeding High cholesterol Low iron Anemia Back pain History of hiatal hernia Hypertension History of GI bleed Gastric reflux Former smoker BiPAP (biphasic positive airway pressure) dependence Chronic cough Leg cramps History of edema History of echocardiogram History of stress test History of atrial fibrillation Cardiology follow-up encounter History of CHF (congestive heart failure) Anemia Afib GI bleed COPD (chronic obstructive pulmonary disease) Hx of carotid stenosis Home Medications ?Medication ?Instructions ?Recorded ?Last Taken ?Type amlodipine 2.5 mg tablet 2.5 mg PO DAILY HTN 03/01/25 06/06/25 History apixaban 5 mg tablet (Eliquis) 5 mg PO BID BLOOD THINN ER 03/01/25 06/03/25 History blood sugar diagnostic (Contour 03/01/25 Unknown Hist ory Next Test Strips) ezetimibe 10 mg tablet 10 mg PO DAILY HLD 03/01/25 06/06/25 History finerenone 10 mg tablet (Kerendia) 10 mg PO DAILY CKD 03/01/25 06/06/25 History icosapent ethyl 1 gram capsule 2 g PO BID HLD 03/01/25 06/05/25 History (Vascepa) linagliptin 2.5 mg-metformin ER 1 tab PO BID DM 06/03/25 History 1,000 mg tablet,extended release 24 hr (Jentadueto XR) pantoprazole 40 mg tablet,delayed 40 mg PO DAILY GERD 03/01/25 06/06/25 History release rosuvastatin 10 mg tablet 10 mg PO QHS HLD 03/01/25 History tiotropium bromide 2.5 2 puff inhalation DAILY LUNG 03/01/25 06/05/25 History mcg/actuation mist for inhalation DISEASE (Spiriva Respimat) carvedilol 12.5 mg tablet 12.5 mg PO BID HTN 03/11/25 06/06/25 History losartan 100 mg tablet 100 mg PO DAILY HTN 03/11/25 06/06/25 History sertraline 25 mg tablet 25 mg PO QHS MOOD 03/11/25 1 History albuterol sulfate 90 mcg/actuation 2 puff inhalation Q 4H PRN 04/12/25 06/05/25 History aerosol inhaler (Ventolin HFA) shortness of breath or wheezing cholecalciferol (vitamin D3) 50 50 mcg PO QDAY SUPPLEM ENT 04/12/25 Unknown History mcg (2,000 unit) capsule ferrous sulfate 137 mg (45 mg 137 mg PO DAILY SUPPLEME NT 05/19/25 06/06/25 History iron) tablet,extended release (Slow Fe) BIPAP -Bilevel Positive Airway INGA 06/06/25 Unknown Hi story Pressure ([facility] USE ONLY) acetaminophen 325 mg tablet 650 mg (2 x 325 mg) PO Q6H PRN PRN 06/09/25 Unknown Rx Pain 1-10 Or Fever >100.7 #0 tabs oxycodone 5 mg tablet 5 mg PO Q8H PRN PRN Pain Sco re 06/09/25 Unknown Rx 4-10 5 days #15 tabs cilostazol 50 mg tablet 50 mg PO BID #60 tabs Unknown Rx furosemide 20 mg tablet (Lasix) 20 mg PO DAILY 5 Unknown History Allergy/AdvReac Type Severity Reaction Status Date / Time isosulfan blue Allergy Severe Anaphylaxis Verified 07/29/25 22:09 methylene blue Allergy Severe Anaphylaxis Verified 07/29/25 22:09 Sulfa (Sulfonamide Allergy Rash Verified 07/29/25 22:09 Antibiotics) Family History Mother Cancer Ovarian cancer Hypertension Heart disease Father Cancer Lung cancer. Hypertension Sister Kidney disease Sister Kidney disease Surgical History History of left mastectomy History of right mastectomy History of esophagogastroduodenoscopy (EGD) History of bronchoscopy History of cardiac ablation History of carotid endarterectomy History of bilateral breast reduction surgery History of colonoscopy History of cataract extraction (~2005) H/O: hysterectomy (~1998) Social History household members: spouse Smoking Status: Former smoker alcohol intake: current alcohol intake frequency: 0-2 drinks per day Alcohol type: wine substance use type: does not use ROS Constitutional Constitutional: Denies fatigue, fever(s), poor appetite, weight gain or weight loss Gastrointestinal Gastrointestinal: Denies belching, bloating, change in bowel habits, change in stool character, chewing difficulty, coffee ground emesis, constipation, cramping, diarrhea, dyspepsia, dysphagia, early satiety, excessive flatus, fecal incontinence, heartburn, hematemesis, hematochezia, hemorrhoids, loose stools, melena, nausea, odynophagia, rectal bleeding, tenesmus, vomiting or weight changes Physical Exam Const alert, oriented x3, no apparent distress and healthy appearing General Appearance: cooperative GI normal to inspection, nondistended, normoactive bowel sounds, soft to palpation, non-tender and non-distended Percussion: normal to percussion Rectal Exam: deferred Lab / Micro Data 07/31/25 04:00 07/31/25 04:00 Labs: Laboratory Results - last 24 hr 07/30/25 12:59: POC Glucose 120 H 07/30/25 15:07: APTT 49.7 H 07/30/25 18:17: POC Glucose 144 H 07/30/25 21:30: APTT 48.8 H 07/31/25 00:59: POC Glucose 101 07/31/25 01:05: Hgb 8.0 L, Hct 24.0 L 07/31/25 04:00: WBC 5.6, RBC 2.67 L, Hgb 8.1 L, Hct 23.8 L, MCV 89.1, MCH 30.3, MCHC 34.0, RDW Std Deviation 56.6 H, RDW Coeff of [place] 17.7 H, Plt Count 124 L, MPV 10.0, Immature Gran % (Auto) 0.400, Neut % (Auto) 60.4, Lymph % (Auto) 22.2, [place] % (Auto) 10.3 H, Eos % (Auto) 5.6 H, Baso % (Auto) 1.1 H, Absolute Neuts (auto) 3.4, Absolute Lymphs (auto) 1.23, Nucleated RBC % 0, APTT 51.5 H, Sodium 139, Potassium 4.2, Chloride 107, Carbon Dioxide 21.8, Anion Gap 10, BUN 44 H, Creatinine 0.87, Estim Creat Clear Calc 49.09 L, Est GFR (MDRD) Non-Af 68, B UN/Creatinine Ratio 50.1 H, Glucose 103 H, Calcium 8.7 07/31/25 10:50: APTT 63.3 H 07/31/25 12:03: POC Glucose 111 H Assessment & Plan Assessment/Plan (1) History of atrial fibrillation: (2) Chronic anticoagulation: (3) Acute anemia: (4) Acute upper gastrointestinal bleeding: PLAN: Assessment 80-year-old female with severe anemia secondary to acute upper gastrointestinal bleeding (UGIB), likely exacerbated by the use of Eliquis and recent re- initiation of cilostazol. The patient is hemodynamically unstable based on her reported symptoms of dizziness and lightheadedness at rest/exertion. The bleeding source is currently obscure given prior negative EGD and colonoscopy this year, but her current presentation with melena is highly suggestive of an upper GI source (proximal to the ligament of Treitz).? * Problem 1: Acute Upper GI Bleeding (likely severe) * Hemoglobin of 6.7 g/dL indicates significant blood loss. The melena and reported dizziness/lightheadedness are consistent with this. * The use of apixaban (Eliquis) and the addition of cilostazol significantly increase her bleeding risk. The combination of multiple antithrombotic agents can lead to serious hemorrhage. * Problem 2: Hemodynamic Instability * Symptoms of dizziness and lightheadedness indicate hypovolemia requiring urgent resuscitation. * Problem 3: Atrial Fibrillation (Afib) * Requires careful management of anticoagulation given the acute bleeding and high risk of thromboembolism if stopped for too long. * Problem 4: History of LOUISE, hiatal hernia, hemorrhoids * Potential underlying pathology contributing to chronic blood loss or potential acute bleed source, though scopes this year were negative for an? active?source.? Plan The patient requires immediate resuscitation and management of acute GI bleeding, with a focus on identifying and treating the source.? * Immediate Actions: * Discontinue Eliquis and Cilostazol immediately.?Time is the most important antidote for DOACs, along with supportive measures. * Transfuse packed red blood cells (PRBCs)?immediately to a goal Hgb of 7.0- 8.0 g/dL, considering a higher threshold for patients with cardiovascular disease like Afib. * Type and crossmatch?blood products. * urgent endoscopy (EGD) within 24 hours to identify and treat the bleeding source. * Initiate Proton Pump Inhibitor (PPI) therapy?upon presentation with suspected UGIB (e.g., IV Pantoprazole bolus and continuous infusion). * Consider Eliquis reversal agent (Andexanet virgil)?for life-threatening hemorrhage or if bleeding is uncontrolled endoscopically, in consultation with vascular surgery. * Diagnostics: * Send complete blood count (CBC), basic metabolic panel (BMP), liver function tests, and coagulation panel (PT/INR/aPTT) to assess baseline and monitor. * Monitor vitals and Hgb levels closely. * outpatient capsule endoscopy once stabilized and appropriate. Portions of this note were generated using voice recognition software ([employer]). I have reviewed the contents and every effort has been made to ensure accuracy; however, inadvertent errors in grammar, spelling, punctuation, or word choice may occur, that were not noted before signing the document and should not alter the intended clinical meaning. Charges/Coding Visit Charges Inpatient E&M: 58175 Init Hosp L3
--- NOTE | 2025-07-31 13:55 | EX.PCM.CON.S ---
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 She has had chronic anemia worked up mostly in [place]. She is known to me for right ax-fem bypass performed in May 2025 for atherosclerosis with rest pain. She has had her initial post op duplex which was satisfactory. 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 She has been on Cilostazol for her peripheral vascular disease with gap usage until recently. 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 Diabetes mellitus, type 2 Neuropathy Wears partial dentures Post-menopausal Cancer Depression Anxiety Alcohol use Diabetes Ambulates with cane Arthritis Gout History of renal disease Excessive bleeding High cholesterol Low iron Anemia Back pain History of hiatal hernia Hypertension History of GI bleed Gastric reflux Former smoker BiPAP (biphasic positive airway pressure) dependence Chronic cough Leg cramps History of edema History of echocardiogram History of stress test History of atrial fibrillation Cardiology follow-up encounter History of CHF (congestive heart failure) Anemia Afib GI bleed COPD (chronic obstructive pulmonary disease) Hx of carotid stenosis Home Medications ?Medication ?Instructions ?Recorded ?Last Taken ?Type amlodipine 2.5 mg tablet 2.5 mg PO DAILY HTN 03/01/25 06/06/25 History apixaban 5 mg tablet (Eliquis) 5 mg PO BID BLOOD THINNER 03/01/25 06/03/25 History blood sugar diagnostic (Contour 03/01/25 Unknown History Next Test Strips) ezetimibe 10 mg tablet 10 mg PO DAILY HLD 03/01/25 06/06/25 History finerenone 10 mg tablet (Kerendia) 10 mg PO DAILY CKD 03/01/25 06/06/25 History icosapent ethyl 1 gram capsule 2 g PO BID HLD 03/01/25 06/05/25 History (Vascepa) linagliptin 2.5 mg-metformin ER 1 tab PO BID DM 03/01/25 06/03/25 History 1,000 mg tablet,extended release 24 hr (Jentadueto XR) pantoprazole 40 mg tablet,delayed 40 mg PO DAILY GERD 03/01/25 06/06/25 History release rosuvastatin 10 mg tablet 10 mg PO QHS HLD 03/01/25 06/05/25 History tiotropium bromide 2.5 2 puff inhalation DAILY LUNG 03/01/25 06/05/25 History mcg/actuation mist for inhalation DISEASE (Spiriva Respimat) carvedilol 12.5 mg tablet 12.5 mg PO BID HTN 03/11/25 06/06/25 History losartan 100 mg tablet 100 mg PO DAILY HTN 03/11/25 06/06/25 History sertraline 25 mg tablet 25 mg PO QHS MOOD 03/11/25 06/05/25 History albuterol sulfate 90 mcg/actuation 2 puff inhalation Q4H PRN 04/12/25 06/05/25 History aerosol inhaler (Ventolin HFA) shortness of breath or wheezing cholecalciferol (vitamin D3) 50 50 mcg PO QDAY SUPPLEMENT 04/12/25 Unknown History mcg (2,000 unit) capsule ferrous sulfate 137 mg (45 mg 137 mg PO DAILY SUPPLEMENT 05/19/25 06/06/25 History iron) tablet,extended release (Slow Fe) BIPAP -Bilevel Positive Airway INGA 06/06/25 Unknown History Pressure ([facility] INFORMATIONAL USE ONLY) acetaminophen 325 mg tablet 650 mg (2 x 325 mg) PO Q6H PRN PRN 06/09/25 Unknown Rx Pain 1-10 Or Fever >100.7 #0 tabs oxycodone 5 mg tablet 5 mg PO Q8H PRN PRN Pain Score 06/09/25 Unknown Rx 4-10 5 days #15 tabs cilostazol 50 mg tablet 50 mg PO BID #60 tabs 07/27/25 Unknown Rx furosemide 20 mg tablet (Lasix) 20 mg PO DAILY 07/29/25 Unknown History Allergy/AdvReac Type Severity Reaction Status Date / Time isosulfan blue Allergy Severe Anaphylaxis Verified 07/29/25 22:09 methylene blue Allergy Severe Anaphylaxis Verified 07/29/25 22:09 Sulfa (Sulfonamide Allergy Rash Verified 07/29/25 22:09 Antibiotics) Family History Mother Cancer Ovarian cancer Hypertension Heart disease Father Cancer Lung cancer. Hypertension Sister Kidney disease Sister Kidney disease Surgical History History of left mastectomy History of right mastectomy History of esophagogastroduodenoscopy (EGD) History of bronchoscopy History of cardiac ablation History of carotid endarterectomy History of bilateral breast reduction surgery History of colonoscopy History of cataract extraction (~2005) H/O: hysterectomy (~1998) Social History household members: spouse Smoking Status: Former smoker alcohol intake: current alcohol intake frequency: 0-2 drinks per day Alcohol type: wine substance use type: does not use ROS Constitutional Constitutional: Denies chills, fever(s), frequent falls, lethargy or weakness Eyes Eyes: Denies blind spots, change in vision or loss of vision ENT HEENT: Denies bleeding gums, hoarseness or sore throat Cardiovascular Cardiovascular: Denies abdominal pain, bluish discoloration of hand/feet, chest pain with activity, claudication, cold extremities, cyanosis, dyspnea on exertion, erythema on extremities, irregular heart rhythm, leg edema, leg ulcers, numbness in extremities or weakness in extremities Respiratory/Chest Respiratory/Chest: Denies cough, excessive phlegm production, shortness of breath at rest, shortness of breath with exertion or wheezing Gastrointestinal Gastrointestinal: Reports change in stool character and melena; Denies anorexia, constipation, diarrhea or rectal bleeding Genitourinary Genitourinary: Denies dysuria or hematuria Musculoskeletal Musculoskeletal: Denies abnormal gait Integumentary Integumentary: Denies erythema, non-healing lesions or wounds Neurologic Neurologic: Reports paresthesias; Denies abnormal speech, focal weakness, headache(s), loss of vision, numbness or sensory deficit Hematologic/Lymphatic Hematologic/Lymphatic: Denies easy bleeding, easy bruising or lymphadenopathy Physical Exam Const alert, oriented x3, no apparent distress and healthy appearing General Appearance: cooperative; Negative for combative or lethargic Orientation / Consciousness: awake Exam Limitations: no limitations HEENT Head and Scalp: normocephalic and atraumatic Eyes EOMs intact bilaterally General Eye: normal appearance of both eyes Neck full ROM and No no lymphadenopathy General: trachea midline Resp normal respiratory effort and no use of accessory muscles Effort and Inspection: Negative for labored, stridor or audible wheezes Cardio regular rate and regular rhythm Peripheral Pulses: brachial pulses present, radial pulses present and femoral pulses present; Negative for posterior tibial pulses present or dorsalis pedis pulses present Back/Spine Cervical Spine: cervical ROM normal Extremity full ROM, normal capillary refill and no clubbing, cyanosis or edema Skin no rashes or lesions noted and no wounds Skin Narrative: Incisions healed Neuro oriented x3, CN's II-XII intact bilaterally, no focal motor deficits and no sensory deficits noted Psych thought process normal, cooperative, affect normal, speech normal and activity/motor behavior normal Lab / Micro Data 07/31/25 04:00 07/31/25 04:00 Labs: Laboratory Results - last 24 hr 07/30/25 15:07: APTT 49.7 H 07/30/25 18:17: POC Glucose 144 H 07/30/25 21:30: APTT 48.8 H 07/31/25 00:59: POC Glucose 101 07/31/25 01:05: Hgb 8.0 L, Hct 24.0 L 07/31/25 04:00: WBC 5.6, RBC 2.67 L, Hgb 8.1 L, Hct 23.8 L, MCV 89.1, MCH 30.3, MCHC 34.0, RDW Std Deviation 56.6 H, RDW Coeff of [place] 17.7 H, Plt Count 124 L, MPV 10.0, Immature Gran % (Auto) 0.400, Neut % (Auto) 60.4, Lymph % (Auto) 22.2, [place] % (Auto) 10.3 H, Eos % (Auto) 5.6 H, Baso % (Auto) 1.1 H, Absolute Neuts (auto) 3.4, Absolute Lymphs (auto) 1.23, Nucleated RBC % 0, APTT 51.5 H, Sodium 139, Potassium 4.2, Chloride 107, Carbon Dioxide 21.8, Anion Gap 10, BUN 44 H, Creatinine 0.87, Estim Creat Clear Calc 49.09 L, Est GFR (MDRD) Non-Af 68, BUN/Creatinine Ratio 50.1 H, Glucose 103 H, Calcium 8.7 07/31/25 10:50: APTT 63.3 H 07/31/25 12:03: POC Glucose 111 H Charges/Coding Visit Charges Inpatient E&M: 94612 Init Hosp L2
[2025-07-31] MEDS: 0.9% Normal Saline (1000mL) 1,000 ML 15 ML IV (15:36)
[2025-07-31 15:56] LABS: Partial Thromboplast Time 45.2 Seconds (24.1-36.2)
--- NOTE | 2025-07-31 15:59 | PRE.ANES_ITS ---
ASA Classification* ASA Classification ASA Classification: 3 Assessment & Plan Anesthesia* Anesthesia Assessment Anesthesia Assessment: Discussed sedation and/or anesthesia options, risks, benefits, and alternatives with patient/parents/legal guardian/POA. Questions invited. The patient/parents/legal guardian/POA seems to understand and agrees to proceed with anesthesia plan. Reviewed the physical assessment, medical history, allergy history and patient home medications list prior to surgery/procedure/anesthetic and documented any changes. Performed airway and anesthesia risk assessments. Anesthesia Type Anesthesia Type: MAC History Source History Obtained from:: Patient and Chart Anesthesia Focused Assessment* Temperature: 97.4 F Pulse Rate: 84 Blood Pressure: 136/60 Respiratory Rate: 16 Pulse Ox: 97 Oxygen Delivery Method: Room Air Airway Assessment Mouth opens: >3 cm Mallampati Score: I Teeth Condition: Caps/Crowns (Patient has several crowns. They are all tight.) and Partial (Lower partials out.) Neck Range of motion (ROM): Full ROM Labs Anesthesia Preop lab: CBC WBC, (4.4-11.0) 5.6 K/mm3 Today, 04:00 RBC, (4.2-5.4) 2.67 M/mm3 L Today, 04:00 Hgb, (12.0-15.0) 8.1 g/dL L Today, 04:00 Hct, (37-47) 23.8 % L Today, 04:00 Plt Count, (150-450) 124 K/mm3 L Today, 04:00 CHEMISTRY Potassium, (3.3-5.1) 4.2 mmol/L Today, 04:00 Sodium, (133-145) 139 mmol/L Today, 04:00 Magnesium, (1.5-2.2) 1.7 mg/dL 07/29/25, 22:25 BUN, (4-19) 44 mg/dL H Today, 04:00 Creatinine, (0.70-1.20) 0.87 mg/dL Today, 04:00 Glucose, (70-99) 103 mg/dL H Today, 04:00 POC Glucose, (74-106) 111 mg/dL H Today, 12:03 TSH, (0.300-4.200) 0.898 uIU/mL 06/14/25, 05:21 COAG PT, (11.7-14.9) 19.1 SECONDS H 07/29/25, 22:25 Pre-Assessment Diagnosis/Proposed Procedure Planned Operative Procedure(s): EGD Anesthesia History Anesthesia History - swimming pool cleaner: Anesthesia History - swimming pool cleaner Hx Hospitalization Yes: 05/2024 AFIB CHF, 05/19/25 09:44 2024 GI BLEED Any Problems With Anesthesia No: TAKES A WHILE TO WAKE UP 05/19/25 09:44 FROM Cholinesterase deficiency No 05/19/25 09:44 You/Your Family Experience No 05/19/25 09:44 fever (hyperthermia) with Relationship Recent Exposure to Contagious No 06/06/25 06:29 Disease Does patient have nerve No 05/19/25 09:44 stimulator Patient instructed to have device shut off --Does patient have Pacemaker or ICD? When Was Last Pacemaker Check QUESTION #4 FULL TEXT: You/Your Family Experience fever (hyperthermia) with Anesthesia Last Oral Intake Last Oral intake: Last Oral Intake NPO since 0000 Meds taken in AM with sips of water? Meds patient instructed to take am of surgery Any additional information?: Yes Meds taken in AM with sips of water?: Yes PONV PONV - swimming pool cleaner: PONV - swimming pool cleaner Female HX of Motion Sickness HX of N/V After Surgery Non-Smoker Duration of Surgery greater than 60 minutes Number of Risk Factors PONV Score Height & Weight Height & Weight: Anesthesia: Height & Weight Height 5 ft 7 in 07/30/25 10:24 Weight: 59.3 kg 07/31/25 03:27 Body Mass Index (BMI) 20.5 07/31/25 03:27 Respiratory Assessment Respiratory Assessment - swimming pool cleaner: Respiratory Tract Infection Hx - swimming pool cleaner Hx Respiratory Tract Infection No 05/19/25 09:44 STOP Sleep Apnea STOP Sleep Apnea - swimming pool cleaner: STOP Sleep Apnea - swimming pool cleaner Hx Hypertension Yes 07/30/25 15:58 Hx Sleep Apnea Yes 07/30/25 01:13 CPAP No 07/30/25 01:13 BIPAP Yes 07/30/25 01:13 Do you snore loudly (louder than talking or can be heard Do you often feel tired/ fatigued/ sleepy during daytime? Has anyone observed you stop breathing during sleep? STOP Results Positive 07/30/25 01:13 QUESTION #5 FULL TEXT : Do you snore loudly (louder than talking or can be heard through closed doors)? Tobacco Use History Tobacco Use History - swimming pool cleaner: Tobacco Use History - swimming pool cleaner Tobacco Use Smoking Status Former smoker 07/30/25 01:13 Hx Tobacco Use No 07/30/25 01:13 Years Smoking Packs Smoked per Day Smoking Cessation Date was No - quit smoking greater 07/30/25 01:13 within the last 15 years than 15 years ago Hx Smoking Cessation Date Hx Smoking Cessation Counseling Hematologic Medial History Hematologic Hx - swimming pool cleaner: Hematologic Medical Hx - interlocker Hx of Blood Transfusion Yes 07/30/25 01:13 Hx of Transfusion in last 3 Yes 07/30/25 01:13 Months Date of Last Transfusion (if 06/1007/30/25 01:13 within last 3 months) Ever experience any problems No 07/30/25 01:13 with transfusion(s)? Specify any problems Hx of Preganancy in last 3 No 07/30/25 01:13 Months Nurse Filling Out Transfusion [id number] 07/30/25 01:13 & Questions: Date: 07/30/25 07/30/25 01:13 Time: 01:20 07/30/25 01:13 Patient unable to answer at this time (ie. confused, unrespo /Reproduction History /Reproductive History - swimming pool cleaner: /Reproductive Hx- swimming pool cleaner Hx Now Gestational Age (in weeks): EDC: Hx Hx Para Hx Section SAB No 05/19/25 09:44 Does the father of the baby or his family experience fever w Father of the baby Malignant Hypertension history comment Active Medications Active Medications: Current Medications Generic Name Dose Route Start Last Admin Trade Name Freq PRN Reason Stop Dose Admin Acetaminophen 650 mg 07/30/25 01:08 07/31/25 07:41 Acetaminophen 325 Mg Tablet PO 650 mg Q4H PRN PRN Administration Fever, pain 1-05/26 Al Hydroxide/Mg Hydroxide 30 ml 07/30/25 01:08 Mag Hydrox/Al Hydrox/Simeth 30 Ml Udc PO Q6H PRN PRN Gastric Burning Albuterol Sulfate 2.5 mg 07/30/25 01:08 Albuterol 2.5 Mg/3 Ml Vial.Neb. INHALATION Q2H PRN PRN Dyspnea, wheezing Albuterol/Ipratropium 3 ml 07/30/25 01:08 07/31/25 13:12 Ipratropium/Albuterol Sulfate 3 Ml Ampul.Neb INHALATION 3 ml Q6HWA.RT ALEXI Administration Atorvastatin Calcium 20 mg 07/30/25 22:00 07/30/25 20:58 Atorvastatin Calcium 20 Mg Tablet PO 20 mg QHS ALEXI Administration Ezetimibe 10 mg 07/30/25 10:00 07/31/25 07:42 Ezetimibe 10 Mg Tablet PO 10 mg DAILY ALEXI Administration Ferrous Sulfate 325 mg 07/30/25 08:00 07/31/25 07:42 Ferrous Sulfate 325 Mg Tablet PO 325 mg DAILYCM ALEXI Administration Furosemide 20 mg 07/30/25 01:08 Furosemide 20 Mg/2 Ml Vial IV X1 PRN Concern overload b/w PRBC Protocol Glucagon 1 mg 07/30/25 01:08 Glucagon 1 Mg/Ml Syringe IM X1 PRN Hypoglycemia Protocol Heparin Sodium (Porcine) 0 unit 07/30/25 07:00 Heparin Nomogram Adjustment 5,000 Unit/Ml Vial IV UD PRN Dose Adjustment Protocol Hydralazine HCl 10 mg 07/30/25 01:08 07/31/25 04:10 Hydralazine 20 Mg/Ml Vial IV 10 mg Q4H PRN PRN Administration SBP > 160 Protocol Hydralazine HCl 10 mg 07/31/25 04:12 Hydralazine 20 Mg/Ml Vial IV Q4H PRN PRN SBP > 160 Protocol Pantoprazole Sodium 80 mg/ 100 mls @ 10 mls/hr 07/30/25 01:08 07/31/25 15:14 Sodium Chloride CONT INF 0 mls/hr Q10H ALEXI Infusion Dextrose 250 mls @ 0 mls/hr 07/30/25 01:08 Dextrose 10%-Water IV .Q0M PRN HYPOGLYCEMIA Protocol As Directed Heparin Sodium/Dextrose 25,000 units in 250 mls @ 6.888 mls/hr 07/30/25 10:00 07/31/25 15:14 CONT INF 0 unit/kg/hr .[id number] ALEXI 0 mls/hr Protocol Titration 12 UNIT/KG/HR Sodium Chloride 1,000 mls @ 15 mls/hr 07/31/25 15:30 07/31/25 15:36 IV 15 mls/hr .Q48H ALEXI Administration Icosapent Ethyl 2 gm 07/30/25 10:00 07/31/25 07:42 Icosapent Ethyl 1 Gm Capsule PO 2 gm BID ALEXI Administration Insulin Human Lispro 0 unit 07/30/25 06:00 07/31/25 12:44 Insulin Lispro 100 Unit/Ml Insuln.Pen SC Not Given Q6 [facility] Protocol Melatonin 3 mg 07/30/25 01:08 Melatonin 3 Mg Tablet PO QHS PRN PRN INSOMNIA Nutritional Formula (Lactose Free) 120 ml 07/30/25 08:00 07/31/25 11:57 Glucerna Shake 120 Ml Liquid PO Not Given TIDCM ALEXI Ondansetron HCl 4 mg 07/30/25 01:08 Ondansetron 4 Mg/2 Ml Vial IV Q8H PRN PRN NAUSEA/VOMITING Oxycodone HCl 5 mg 07/30/25 01:08 Oxycodone 5 Mg Tablet PO Q8H PRN PRN Pain Score 4-10 Sertraline HCl 25 mg 07/30/25 22:00 07/30/25 20:58 Sertraline 50 Mg Tablet PO 25 mg QHS ALEXI Administration Sodium Chloride 10 - 40 ml 07/30/25 01:16 07/30/25 02:11 0.9% Saline Lock 10 Ml Syringe IV 10 ml UD PRN Administration SALINE FLUSH PFSH Medical History CHF exacerbation SOB (shortness of breath) Elevated brain natriuretic peptide (BNP) level Uncontrolled hypertension Atherosclerosis of right lower extremity with rest pain Diabetes mellitus, type 2 Neuropathy Wears partial dentures Post-menopausal Cancer Depression Anxiety Alcohol use Diabetes Ambulates with cane Arthritis Gout History of renal disease Excessive bleeding High cholesterol Low iron Anemia Back pain History of hiatal hernia Hypertension History of GI bleed Gastric reflux Former smoker BiPAP (biphasic positive airway pressure) dependence Chronic cough Leg cramps History of edema History of echocardiogram History of stress test History of atrial fibrillation Cardiology follow-up encounter History of CHF (congestive heart failure) Anemia Afib GI bleed COPD (chronic obstructive pulmonary disease) Hx of carotid stenosis Home Medications ?Medication ?Instructions ?Recorded ?Last Taken ?Type amlodipine 2.5 mg tablet 2.5 mg PO DAILY HTN 03/01/25 06/06/25 History apixaban 5 mg tablet (Eliquis) 5 mg PO BID BLOOD THINN ER 03/01/25 06/03/25 History blood sugar diagnostic (Contour 03/01/25 Unknown Hist ory Next Test Strips) ezetimibe 10 mg tablet 10 mg PO DAILY HLD 03/01/25 06/06/25 History finerenone 10 mg tablet (Kerendia) 10 mg PO DAILY CKD 03/01/25 06/06/25 History icosapent ethyl 1 gram capsule 2 g PO BID HLD 03/01/25 06/05/25 History (Vascepa) linagliptin 2.5 mg-metformin ER 1 tab PO BID DM 06/03/25 History 1,000 mg tablet,extended release 24 hr (Jentadueto XR) pantoprazole 40 mg tablet,delayed 40 mg PO DAILY GERD 03/01/25 06/06/25 History release rosuvastatin 10 mg tablet 10 mg PO QHS HLD 03/01/25 History tiotropium bromide 2.5 2 puff inhalation DAILY LUNG 03/01/25 06/05/25 History mcg/actuation mist for inhalation DISEASE (Spiriva Respimat) carvedilol 12.5 mg tablet 12.5 mg PO BID HTN 03/11/25 06/06/25 History losartan 100 mg tablet 100 mg PO DAILY HTN 03/11/25 06/06/25 History sertraline 25 mg tablet 25 mg PO QHS MOOD 03/11/25 1 History albuterol sulfate 90 mcg/actuation 2 puff inhalation Q 4H PRN 04/12/25 06/05/25 History aerosol inhaler (Ventolin HFA) shortness of breath or wheezing cholecalciferol (vitamin D3) 50 50 mcg PO QDAY SUPPLEM ENT 04/12/25 Unknown History mcg (2,000 unit) capsule ferrous sulfate 137 mg (45 mg 137 mg PO DAILY SUPPLEME NT 05/19/25 06/06/25 History iron) tablet,extended release (Slow Fe) BIPAP -Bilevel Positive Airway INGA 06/06/25 Unknown Hi story Pressure ([facility] INFORMATIONAL USE ONLY) acetaminophen 325 mg tablet 650 mg (2 x 325 mg) PO Q6H PRN PRN 06/09/25 Unknown Rx Pain 1-10 Or Fever >100.7 #0 tabs oxycodone 5 mg tablet 5 mg PO Q8H PRN PRN Pain Sc[place] 06/09/25 Unknown Rx 4-10 5 days #15 tabs cilostazol 50 mg tablet 50 mg PO BID #60 tabs Unknown Rx furosemide 20 mg tablet (Lasix) 20 mg PO DAILY 5 Unknown History Allergy/AdvReac Type Severity Reaction Status Date / Time isosulfan blue Allergy Severe Anaphylaxis Verified 07/29/25 22:09 methylene blue Allergy Severe Anaphylaxis Verified 07/29/25 22:09 Sulfa (Sulfonamide Allergy Rash Verified 07/29/25 22:09 Antibiotics) Family History Mother Cancer Ovarian cancer Hypertension Heart disease Father Cancer Lung cancer. Hypertension Sister Kidney disease Sister Kidney disease Surgical History History of left mastectomy History of right mastectomy History of esophagogastroduodenoscopy (EGD) History of bronchoscopy History of cardiac ablation History of carotid endarterectomy History of bilateral breast reduction surgery History of colonoscopy History of cataract extraction (~2005) H/O: hysterectomy (~1998) Social History household members: spouse Smoking Status: Former smoker alcohol intake: current alcohol intake frequency: 0-2 drinks per day Alcohol type: wine substance use type: does not use Review of Systems (Anesthesia) ROS Narrative System reviewed and no additional complaints, except as documented.
[2025-07-31] MEDS: Lidocaine 1% (5 ml sdv) 5 ML Vial 8 ML IV (16:29)
--- NOTE | 2025-07-31 16:44 | PCM.POST.ANE ---
Anesthesia: Postop Eval I Current Vital Signs Temperature: 97.4 F Pulse Rate: 94 Blood Pressure: 134/64 Respiratory Rate: 16 Pulse Ox: 100 Assessment Airway patent: Yes Spontaneous unlabored respirations: Yes nausea: No Vomiting: No Anesthesia Complication: No Fluid Hydration Crystalloid volume administer (ml): 300 Total IV fluid infused: 300 Progress Note Anesthesia document: Postop Eval 1 completed: Yes
--- NOTE | 2025-07-31 16:53 | OP.PROVAT_ITS ---
07/31/2025 Celia Al Do Re : Upper GI endoscopy procedure for Terri Peters Dear Dr. Al This procedure was performed on Thursday, July 31, 2025. My impressions and recommendations are as follows: Impressions : - Normal esophagus. 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 Treated with argon plasma coagulation (APC). - [place] lesion of stomach. - No gross lesions in the entire examined duodenum. - No specimens collected. Recommendations : - [facility]. - Resume previous diet. - Continue present medications. My findings are described in the full procedure note, which is enclosed. If I can be of further assistance, please feel free to contact me at . Sincerely, Aman Parra, 07/31/2025 4:52:46 PM This report has been signed electronically.
--- NOTE | 2025-07-31 16:53 | OP.EGD_ITS ---
Patient Name: Terri Peters Procedure Date: 07/31/2025 4:14 PM Date of : 1945 Age: 80 Procedure: Upper GI endoscopy Indications: Iron deficiency anemia Providers: Aman Parra DO Medicines: Monitored Anesthesia Care Patient Profile: This is a 80 year old female. Refer to note in patient chart for documentation of history and physical. Patient has symptoms. Complications: No immediate complications. Procedure: Pre-Anesthesia Assessment: - Prior to the procedure, a History and Physical was performed, and patient medications and allergies were reviewed. The patient is competent. The risks and benefits of the procedure and the sedation options and risks were discussed with the patient. All questions were answered and informed consent was obtained. Patient identification and proposed procedure were verified by the physician in the pre-procedure area. Mental Status Examination: alert and oriented. Airway Examination: normal oropharyngeal airway and neck mobility. Respiratory Examination: clear to auscultation. CV Examination: normal. Prophylactic Antibiotics: The patient does not require prophylactic antibiotics. Prior Anticoagulants: The patient has taken no anticoagulant or antiplatelet agents except for NSAID medication. ASA Grade Assessment: II - A patient with mild systemic disease. After reviewing the risks and benefits, the patient was deemed in satisfactory condition to undergo the procedure. The anesthesia plan was to use monitored anesthesia care (MAC). Immediately prior to administration of medications, the patient was re-assessed for adequacy to receive sedatives. The heart rate, respiratory rate, oxygen saturations, blood pressure, adequacy of pulmonary ventilation, and response to care were monitored throughout the procedure. The physical status of the patient was re-assessed after the procedure. After obtaining informed consent, the endoscope was passed under direct vision. Throughout the procedure, the patient's blood pressure, pulse, and oxygen saturations were monitored continuously. The gastroscope was introduced through the mouth, and advanced to the fourth part of the duodenum. Small bowel enteroscopy was deemed necessary. The upper GI endoscopy was accomplished without difficulty. The patient tolerated the procedure well. Scope In: 4:30:02 PM Scope Out: 4:37:51 PM Total Procedure Duration Time 0 hours 7 minutes 49 seconds Findings: The examined esophagus was normal. Multiple 5 mm angioectasias with bleeding were found in the cardia and in the gastric fundus. Coagulation for bleeding prevention using argon plasma at 0.3 liters/minute and 20 renae was successful. Estimated blood loss was minimal. A Dieulafoy lesion with no bleeding and no stigmata of recent bleeding was found on the greater curvature of the stomach. Coagulation for bleeding prevention using argon plasma at 0.3 liters/minute and 30 renae was successful. Estimated blood loss was minimal. No gross lesions were noted in the entire examined duodenum. Impression: - Normal esophagus. 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 Treated with argon plasma coagulation (APC). - Dieulafoy lesion of stomach. - No gross lesions in the entire examined duodenum. - No specimens collected. Recommendation: - [facility]. - Resume previous diet. - Continue present medications. Procedure Code(s): --- Professional --- 81761, Small intestinal endoscopy, enteroscopy beyond second portion of duodenum, not including ileum; with control of bleeding (eg, injection, bipolar cautery, unipolar cautery, laser, heater probe, stapler, plasma husker operator) CPT copyright 2021 [employer]. All rights reserved. The codes documented in this report are preliminary and upon nurse aide evaluator review may be revised to meet current compliance requirements. Aman Parra DO 07/31/2025 4:52:46 PM This report has been signed electronically. Number of Addenda: 0 Note Initiated On: 07/31/2025 4:14 PM
[2025-07-31] MEDS: HEPARIN/D5w 25,000 UNITS 25,000 UNITS/250 ML IV.SOLN. 8.6 UNITS CONT INF (18:14)
--- NOTE | 2025-07-31 21:06 | POSTOPAN2_ITS ---
Anesthesia Postop Eval I Sum Postop Eval Completion status Anesthesia document: Postop Eval 1 completed: Yes Anesthesia Postop Eval I Summary Anesthesia Postop Eval I Summary: Anesthesia Postop Eval I: Assessment Summary Airway patent Yes 07/31/25 16:44 [email or web address] Spontaneous unlabored Yes 07/31/25 16:44 [email or web address] respirations Mental status nausea No 07/31/25 16:44 [email or web address] Vomiting No 07/31/25 16:44 [email or web address] Anesthesia Postop Eval I: Fluid Summary Crystalloid volume administer 300 07/31/25 16:44 [email or web address] (ml) Colloids volume administered ( ml) Blood Product volume administered (ml) Total IV fluid infused 300 07/31/25 16:44 [email or web address] Anesthesia Postop Eval I: Summary Notes Anesthesia Complication No 07/31/25 16:44 [email or web address] Anesthesia Complication Comment: Post-operative progress note Anesthesia: Postop Eval II Evaluation Mental status: Awake and Calm Pain Level: 0 nausea: No Vomiting: No Complications Anesthesia Complication: No
--- NOTE | 2025-07-31 21:06 | PCM.POSTANE2 ---
Anesthesia Postop Eval I Sum Postop Eval Completion status Anesthesia document: Postop Eval 1 completed: Yes Anesthesia Postop Eval I Summary Anesthesia Postop Eval I Summary: Anesthesia Postop Eval I: Assessment Summary Airway patent Yes 07/31/25 16:44 [email or web address] Spontaneous unlabored Yes 07/31/25 16:44 [email or web address] respirations Mental status nausea No 07/31/25 16:44 [email or web address] Vomiting No 07/31/25 16:44 [email or web address] Anesthesia Postop Eval I: Fluid Summary Crystalloid volume administer 300 07/31/25 16:44 [email or web address] (ml) Colloids volume administered ( ml) Blood Product volume administered (ml) Total IV fluid infused 300 07/31/25 16:44 [email or web address] Anesthesia Postop Eval I: Summary Notes Anesthesia Complication No 07/31/25 16:44 [email or web address] Anesthesia Complication Comment: Post-operative progress note Anesthesia: Postop Eval II Evaluation Mental status: Awake and Calm Pain Level: 0 nausea: No Vomiting: No Complications Anesthesia Complication: No
[2025-08-01 00:41] LABS: Partial Thromboplast Time 50.4 Seconds (24.1-36.2)
[2025-08-01 01:41] VITALS: BMI 24.9
[2025-08-01 03:00] VITALS: PULSE 82
[2025-08-01 04:15] VITALS: BP 163/57; PULSE 75; RESP 16; TEMP 36.4; O2SAT 98
[2025-08-01] MEDS: Pantoprazole Sodium 80 MG in 0.9% Normal Saline (100mL Bag) 80 ML 10 MG CONT INF (06:22)
[2025-08-01 06:46] VITALS: PULSE 79; RESP 16; O2SAT 98
[2025-08-01 07:34] LABS: Hematocrit 23.6 % (37-47); Hemoglobin 7.8 g/dL (12.0-15.0); Mean Corp Hgb Conc 33.1 g/dL (32-36); Mean Corpuscular Volume 92.5 fL (81-99); Mean Platelet Vol. 10.1 fl (6.2-12.0); Platelet Count 108 K/mm3 (150-450); RBC Distribution Width CV 17.7 % (11.6-14.6); RBC Distribution Width SD 59.9 fl (35.1-43.9); Red Blood Count 2.55 M/mm3 (4.2-5.4); White Blood Count 5.6 K/mm3 (4.4-11.0)
[2025-08-01 07:57] LABS: Anion Gap 10 (5-15); BUN 26 mg/dL (4-19); BUN/Creat Ratio 30.8 RATIO (10-20); Calcium,Total 8.3 mg/dL (7.6-11.0); Carbon Dioxide 21.3 mmol/L (21.0-32.0); Chloride 107 mmol/L (98-108); Estimated Creatinine Clearance 53.45 ml/min (50-250); Glucose 111 mg/dL (70-99); Potassium 4.1 mmol/L (3.3-5.1)
[2025-08-01 08:22] LABS: Partial Thromboplast Time 64.7 Seconds (24.1-36.2)
[2025-08-01] MEDS: Sodium Ferric Gluconat/Sucrose 250 MG in 0.9% Normal Saline (250mL Bag) 250 ML 135 MG IV (09:42)
[2025-08-01 09:45] VITALS: BP 154/54; PULSE 85; RESP 14; TEMP 36.8; O2SAT 96
[2025-08-01] MEDS: FINERENONE 10 MG TABLET PO (09:48)
[2025-08-01] MEDS: 0.9% Saline Lock 10 ML Syringe IV (09:50)
--- NOTE | 2025-08-01 12:23 | DCINST_ITS ---
Discharge Instructions DC O2, CPAP, BIPAP needs Home O2 Discharge instructions: No Dressing / Incision Discharge Activity: - (Increase activity as tolerated) Follow Up Care Test Results: Test results from this visit will be discussed in further detail at your follow- up appointment, if applicable. Discharge Plan Admission Admit Date/Time: 07/29/25 23:01 Primary Reason for Your Visit: black stool Attending Provider: Geovanna Kauffman Primary Care Provider: Celia Al Consulting Providers: Ronnie Godwin; Aman Parra; Beti Rose; Tana Alonzo; Elizabeth Nava; Reginald Nava; Joanie Saucedo; Reginald Foy Instructions Patient Instructions: EGD (Upper Endoscopy): Post-op Additional Instructions / Restrictions: DISCHARGE INSTRUCTIONS PLEASE READ *Please take this with you to your next doctors appointment* - If you already have a chainstitch tunnel elastic operator (GI doctor) please follow-up with them on discharge, if you need to establish with one you can follow-up with Dr. Parra in the office, please call the office to schedule an appointment if you need to establish care. -You will need to follow-up outpatient for a capsule endoscopy as was previously scheduled. If you have any questions about this please contact the outpatient doctor who ordered this - You have been discharged on Protonix 40 mg twice daily, ultimately this may be decreased to once daily but would recommend taking this twice daily until you follow-up with your outpatient physician -Please continue to follow with Dr. Nava on discharge, you have been continued on your Eliquis 5 mg twice a day -Would recommend lab work (CBC) to check your hemoglobin in 2 to 3 days through your primary care physician's office. Please call their office upon discharge to obtain order for lab work. -Please call your primary care provider's office upon discharge to schedule a hospital follow up within 1 week. -For any concerning signs or symptoms please call 911 or proceed to the nearest emergency department Discharge Orders/Prescriptions Prescriptions: Continued albuterol sulfate [Ventolin HFA] 90 mcg/actuation HFA aerosol inhaler 2 puff inhalation Q4H PRN (Reason: shortness of breath or wheezing) cholecalciferol (vitamin D3) 50 mcg (2,000 unit) capsule 50 mcg PO QDAY carvedilol 12.5 mg tablet 12.5 mg PO BID losartan 100 mg tablet 100 mg PO DAILY sertraline 25 mg tablet 25 mg PO QHS Slow Fe 137 mg (45 mg iron) tablet extended release 137 mg PO DAILY BIPAP -Bilevel Positive Airway Pressure ([facility] INFORMATIONAL USE ONLY) Patient Comments: pt has home bipap, DME through [facility]. pt does not know settings acetaminophen 325 mg Tablet 650 mg PO Q6H PRN PRN (Reason: Pain 1-10 Or Fever >100.7) Qty: 0 0RF oxycodone 5 mg Tablet 5 mg PO Q8H PRN PRN (Reason: Pain Score 4-10) 5 Days Qty: 15 0RF furosemide [Lasix] 20 mg tablet 20 mg PO DAILY amlodipine 2.5 mg tablet 2.5 mg PO DAILY (DME) Contour Next Test Strips Strip 1 strip MISCELLANEOUS BID ezetimibe 10 mg tablet 10 mg PO DAILY rosuvastatin 10 mg tablet 10 mg PO QHS Spiriva Respimat 2.5 mcg/actuation mist 2 puff inhalation DAILY icosapent ethyl [Vascepa] 1 gram capsule 2 g PO BID Patient Comments: Patient does not always take this med as schedule. She doesn't always have an appetite, so she will not take them if she skips a meal. Eliquis 5 mg tablet 5 mg PO BID Jentadueto XR 2.5-1,000 mg tablet, IR - ER, biphasic 24hr 1 tab PO BID Kerendia 10 mg tablet 10 mg PO DAILY cilostazol 50 mg tablet 50 mg PO BID Qty: 60 5RF Changed pantoprazole 40 mg tablet,delayed release (DR/EC) 40 mg PO BID 30 Days Qty: 60 0RF Referrals / Follow Up: Celia Al DO [Primary Care Provider, Family Practice] - In 1 Week Aman Parra DO [Med Staff - Active Staff, Gastroenterology] Referral Note: Call the office to schedule an establish care appointment if you do not already have a GI doctor you will follow up with Disposition Disposition (needs filled in before D/C Order can be placed): Home, Self Care
--- NOTE | 2025-08-01 12:28 | DS.PCM_ITS ---
Providers Date of Admission: 07/29/25 Primary Care Physician: Dr. Celia Al, DO Consultations 07/30/25 01:08 Consult: Gastroenterology Routine Consulting Provider: [facility] Reason for Consult: ABLA, GI consultation EMERGENT Consult: No Notified: Yes Date Notified: 07/30/25 Time Notified: 00:01 Method of Notification: ED Physician Initiated Consult: Vascular Surgery Routine Consulting Provider: Reginald Nava Reason for Consult: 06/10 bypass, complicates admit w/ GI bleed EMERGENT Consult: No Notified: Yes Date Notified: 07/30/25 Time Notified: 00:02 Method of Notification: Verbal Reason For Visit: ABLA, GI BLEED Diagnosis Discharge Diagnosis (1) Acute anemia: Status: Acute Code(s): D64.9 - Anemia, unspecified Plan # Acute on chronic anemia - Suspected to be secondary to GI bleed of unclear source - Was supposed undergo capsule endoscopy in [place] in outpatient basis however given her anemia she required admission and further workup - Patient on PPI drip - Transfused 2 units - Eliquis and cilostazol held and patient transition to heparin drip - GI consulted - Patient for upper EGD today # Recent right femoral bypass -patient with Eliquis and cilostazol held due to bleeding and was transition to heparin drip - Vascular consulted and okay with holding cilostazol - Patient on Eliquis primarily for A-fib, if unable to be on full dose anticoagulation would recommend considering at least an aspirin 81 mg - Further recommendations and treatment pending scope #Paroxysmal Atrial Fibrillation -Rate control: Restart beta-luna but at lower dose given stability in blood pressure, uptitrate as tolerated -Anticoagulation: Transition from Eliquis to heparin drip #INGA -Continue home NIPPV if applicable #Hypertension - Holding home antihypertensives aside from carvedilol which will be started back at low-dose #Depression/anxiety -Continue home medications #GERD -Continue PPI #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 -Glucose checks and sliding scale insulin - Holding home oral medications, suspect these can be resumed on discharge #Hx COPD -nebs while admitted #DVT ppx: Presently on heparin drip Geovanna Kauffman MD Medications at Discharge Home Medications amlodipine 2.5 mg tablet 2.5 mg PO DAILY HTN 03/01/25 apixaban 5 mg tablet (Eliquis) 5 mg PO BID BLOOD THINNER 03/01/25 blood sugar diagnostic (Contour Next Test Strips) 03/01/25 ezetimibe 10 mg tablet 10 mg PO DAILY HLD 03/01/25 finerenone 10 mg tablet (Kerendia) 10 mg PO DAILY CKD 03/01/25 icosapent ethyl 1 gram capsule (Vascepa) 2 g PO BID HLD 03/01/25 linagliptin 2.5 mg-metformin ER 1,000 mg tablet,extended release 24 hr (Jentadueto XR) 1 tab PO BID DM 03/01/25 pantoprazole 40 mg tablet,delayed release 40 mg PO DAILY GERD 03/01/25 rosuvastatin 10 mg tablet 10 mg PO QHS HLD 03/01/25 tiotropium bromide 2.5 mcg/actuation mist for inhalation (Spiriva Respimat) 2 puff inhalation DAILY LUNG DISEASE 03/01/25 carvedilol 12.5 mg tablet 12.5 mg PO BID HTN 03/11/25 losartan 100 mg tablet 100 mg PO DAILY HTN 03/11/25 sertraline 25 mg tablet 25 mg PO QHS MOOD 03/11/25 albuterol sulfate 90 mcg/actuation aerosol inhaler (Ventolin HFA) 2 puff inhalation Q4H PRN shortness of breath or wheezing 04/12/25 cholecalciferol (vitamin D3) 50 mcg (2,000 unit) capsule 50 mcg PO QDAY SUPPLEMENT 04/12/25 ferrous sulfate 137 mg (45 mg iron) tablet,extended release (Slow Fe) 137 mg PO DAILY SUPPLEMENT 05/19/25 BIPAP -Bilevel Positive Airway Pressure ([facility] INFORMATIONAL USE ONLY) INGA 06/06/25 acetaminophen 325 mg tablet 650 mg (2 x 325 mg) PO Q6H PRN PRN Pain 1-10 Or Fever >100.7 #0 tabs 06/09/25 oxycodone 5 mg tablet 5 mg PO Q8H PRN PRN Pain Score 4-10 5 days #15 tabs 06/09/25 cilostazol 50 mg tablet 50 mg PO BID #60 tabs 07/27/25 furosemide 20 mg tablet (Lasix) 20 mg PO DAILY 07/29/25 Weight / BMI Weight Weight: 72.1 kg Body Mass Index (BMI) 24.9 ABG / Lab / Microbiology Data 08/01/25 07:04 08/01/25 07:04 Laboratory: Laboratory Results - last 24 hr 07/31/25 14:52: APTT 45.2 H 07/31/25 17:53: POC Glucose 96 08/01/25 00:24: APTT 50.4 H 08/01/25 00:51: POC Glucose 120 H 08/01/25 06:23: POC Glucose 106 08/01/25 07:04: WBC 5.6, RBC 2.55 L, Hgb 7.8 L, Hct 23.6 L, MCV 92.5, MCH 30.6, MCHC 33.1, RDW Std Deviation 59.9 H, RDW Coeff of [place] 17.7 H, Plt Count 108 L, MPV 10.1, APTT 64.7 H, Sodium 138, Potassium 4.1, Chloride 107, Carbon Dioxide 21.3, Anion Gap 10, BUN 26 H, Creatinine 0.83, Estim Creat Clear Calc 53.45, Est GFR (MDRD) Non-Af 72, BUN/Creatinine Ratio 30.8 H, Glucose 111 H, Calcium 8.3 08/01/25 11:56: POC Glucose 153 H D/C Instructions DC O2, CPAP, BIPAP Needs Home O2 Discharge instructions: No Discharge Plan Admission Admit Date/Time: 07/29/25 23:01 Primary Reason for Your Visit: black stool Attending Provider: Geovanna Kauffman Primary Care Provider: Celia Al Consulting Providers: Ronnie Godwin; Aman Parra; Beti Rose; Tana Alonzo; Elizabeth Nava; Reginald Nava; Joanie Saucedo; Reginald Foy Discharge Orders/Prescriptions Prescriptions: No Action albuterol sulfate [Ventolin HFA] 90 mcg/actuation HFA aerosol inhaler 2 puff inhalation Q4H PRN (Reason: shortness of breath or wheezing) cholecalciferol (vitamin D3) 50 mcg (2,000 unit) capsule 50 mcg PO QDAY carvedilol 12.5 mg tablet 12.5 mg PO BID losartan 100 mg tablet 100 mg PO DAILY sertraline 25 mg tablet 25 mg PO QHS Slow Fe 137 mg (45 mg iron) tablet extended release 137 mg PO DAILY BIPAP -Bilevel Positive Airway Pressure ([facility] INFORMATIONAL USE ONLY) Patient Comments: pt has home bipap, DME through [facility]. pt does not know settings acetaminophen 325 mg Tablet 650 mg PO Q6H PRN PRN (Reason: Pain 1-10 Or Fever >100.7) Qty: 0 0RF oxycodone 5 mg Tablet 5 mg PO Q8H PRN PRN (Reason: Pain Score 4-10) 5 Days Qty: 15 0RF furosemide [Lasix] 20 mg tablet 20 mg PO DAILY amlodipine 2.5 mg tablet 2.5 mg PO DAILY (DME) Contour Next Test Strips Strip 1 strip MISCELLANEOUS BID pantoprazole 40 mg tablet,delayed release (DR/EC) 40 mg PO DAILY ezetimibe 10 mg tablet 10 mg PO DAILY rosuvastatin 10 mg tablet 10 mg PO QHS Spiriva Respimat 2.5 mcg/actuation mist 2 puff inhalation DAILY icosapent ethyl [Vascepa] 1 gram capsule 2 g PO BID Patient Comments: Patient does not always take this med as schedule. She doesn't always have an appetite, so she will not take them if she skips a meal. Eliquis 5 mg tablet 5 mg PO BID Jentadueto XR 2.5-1,000 mg tablet, IR - ER, biphasic 24hr 1 tab PO BID Kerendia 10 mg tablet 10 mg PO DAILY cilostazol 50 mg tablet 50 mg PO BID Qty: 60 5RF Referrals / Follow Up: Celia Al DO [Primary Care Provider, Family Practice]
--- NOTE | 2025-08-01 12:28 | PCM.DC.SUM ---
Providers Date of Admission: 07/29/25 Date of Discharge: 08/01/25 Primary Care Physician: Dr. Celia Al, DO Consultations 07/30/25 01:08 Consult: Gastroenterology Routine Consulting Provider: [facility] Reason for Consult: ABLA, GI consultation EMERGENT Consult: No Notified: Yes Date Notified: 07/30/25 Time Notified: 00:01 Method of Notification: ED Physician Initiated Consult: Vascular Surgery Routine Consulting Provider: Reginald Nava Reason for Consult: 06/10 bypass, complicates admit w/ GI bleed EMERGENT Consult: No Notified: Yes Date Notified: 07/30/25 Time Notified: 00:02 Method of Notification: Verbal Reason For Visit: ABLA, GI BLEED Diagnosis Discharge Diagnosis (1) Acute anemia: Status: Acute Code(s): D64.9 - Anemia, unspecified (2) Angiodysplasia of intestinal tract: Status: Acute Code(s): K55.20 - Angiodysplasia of colon without hemorrhage (3) Dieulafoy lesion of stomach: Status: Acute Code(s): K31.82 - Dieulafoy lesion (hemorrhagic) of stomach and duodenum Plan # Acute on chronic anemia secondary to bleeding angiodysplastic lesions in the stomach # Recent right femoral bypass #Paroxysmal Atrial Fibrillation #INGA #Hypertension #Depression/anxiety #GERD #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 #Hx COPD Medications at Discharge Home Medications amlodipine 2.5 mg tablet 2.5 mg PO DAILY HTN 03/01/25 apixaban 5 mg tablet (Eliquis) 5 mg PO BID BLOOD THINNER 03/01/25 blood sugar diagnostic (Contour Next Test Strips) 03/01/25 ezetimibe 10 mg tablet 10 mg PO DAILY HLD 03/01/25 finerenone 10 mg tablet (Kerendia) 10 mg PO DAILY CKD 03/01/25 icosapent ethyl 1 gram capsule (Vascepa) 2 g PO BID HLD 03/01/25 linagliptin 2.5 mg-metformin ER 1,000 mg tablet,extended release 24 hr (Jentadueto XR) 1 tab PO BID DM 03/01/25 rosuvastatin 10 mg tablet 10 mg PO QHS HLD 03/01/25 tiotropium bromide 2.5 mcg/actuation mist for inhalation (Spiriva Respimat) 2 puff inhalation DAILY LUNG DISEASE 03/01/25 carvedilol 12.5 mg tablet 12.5 mg PO BID HTN 03/11/25 losartan 100 mg tablet 100 mg PO DAILY HTN 03/11/25 sertraline 25 mg tablet 25 mg PO QHS MOOD 03/11/25 albuterol sulfate 90 mcg/actuation aerosol inhaler (Ventolin HFA) 2 puff inhalation Q4H PRN shortness of breath or wheezing 04/12/25 cholecalciferol (vitamin D3) 50 mcg (2,000 unit) capsule 50 mcg PO QDAY SUPPLEMENT 04/12/25 ferrous sulfate 137 mg (45 mg iron) tablet,extended release (Slow Fe) 137 mg PO DAILY SUPPLEMENT 05/19/25 BIPAP -Bilevel Positive Airway Pressure ([facility] INFORMATIONAL USE ONLY) INGA 06/06/25 acetaminophen 325 mg tablet 650 mg (2 x 325 mg) PO Q6H PRN PRN Pain 1-10 Or Fever >100.7 #0 tabs 06/09/25 oxycodone 5 mg tablet 5 mg PO Q8H PRN PRN Pain Score 4-10 5 days #15 tabs 06/09/25 cilostazol 50 mg tablet 50 mg PO BID #60 tabs 07/27/25 furosemide 20 mg tablet (Lasix) 20 mg PO DAILY 07/29/25 pantoprazole 40 mg tablet,delayed release 40 mg PO BID GERD 30 days #60 tabs 08/01/25 Hospital Course Procedures EGD Summary of Care Provided Minutes Spent on Discharge: 32 Hospital Course: 80-year-old female history of A-fib with ablation, right Bourgeois bypass, stage III diastolic dysfunction, INGA, GERD, diabetes presented [facility] ED 07/29/2025 due to black stool and weakness. She was found to have a hemoglobin of 6.7 and hospitalist contacted for admission for GI bleed. Patient transfused 2 units with hemoglobin increased to 9.1, this downtrended to 8.1 and patient subsequently had an EGD which showed multiple bleeding angiodysplasias in the stomach which were treated with argon plasma coagulation and a non bleeding dielafoy lesion in the stomach treated w/ heater probe to prevent bleeding. The following day hemoglobin minimally changed with hemoglobin of 7.8. Patient was on heparin drip for anticoagulation given her recent femoral bypass and need to hold oral anticoagulation and she remained stable despite this being continued. On day of discharge she is eating and drinking well. No nausea or abdominal pain. Discussed with GI and it was felt reasonable that patient could resume her at anticoagulation and follow-up outpatient for her capsule endoscopy, it was recommended she be given another dose of IV iron prior to discharge so this was ordered. Patient comfortable with this plan. No new or acute complaints on day of discharge. Discharge instructions as follows: - If you already have a revenue stamp clerk (GI doctor) please follow-up with them on discharge, if you need to establish with one you can follow-up with Dr. Parra in the office, please call the office to schedule an appointment if you need to establish care. -You will need to follow-up outpatient for a capsule endoscopy as was previously scheduled. If you have any questions about this please contact the outpatient doctor who ordered this - You have been discharged on Protonix 40 mg twice daily, ultimately this may be decreased to once daily but would recommend taking this twice daily until you follow-up with your outpatient physician -Please continue to follow with Dr. Nava on discharge, you have been continued on your Eliquis 5 mg twice a day -Would recommend lab work (CBC) to check your hemoglobin in 2 to 3 days through your primary care physician's office. Please call their office upon discharge to obtain order for lab work. -Please call your primary care provider's office upon discharge to schedule a hospital follow up within 1 week. -For any concerning signs or symptoms please call 911 or proceed to the nearest emergency department Physical Exam Narrative General: Alert, oriented, no apparent distress HEENT: Atraumatic, normocephalic Eyes: Anicteric, normal conjunctiva, extraocular movements grossly intact Neck: Supple Respiratory: Clear to auscultation bilaterally, normal respiratory effort Cardiovascular: Regular rate GI: Soft, nontender, nondistended Extremities: No edema Musculoskeletal: Moving all extremities Neuro: No overt focal neurological deficits Skin: No rashes appreciated Psych: Cooperative Weight / BMI Weight Weight: 72.1 kg Body Mass Index (BMI) 24.9 ABG / Lab / Microbiology Data 08/01/25 07:04 08/01/25 07:04 Laboratory: Laboratory Results - last 24 hr 07/31/25 14:52: APTT 45.2 H 07/31/25 17:53: POC Glucose 96 08/01/25 00:24: APTT 50.4 H 08/01/25 00:51: POC Glucose 120 H 08/01/25 06:23: POC Glucose 106 08/01/25 07:04: WBC 5.6, RBC 2.55 L, Hgb 7.8 L, Hct 23.6 L, MCV 92.5, MCH 30.6, MCHC 33.1, RDW Std Deviation 59.9 H, RDW Coeff of [place] 17.7 H, Plt Count 108 L, MPV 10.1, APTT 64.7 H, Sodium 138, Potassium 4.1, Chloride 107, Carbon Dioxide 21.3, Anion Gap 10, BUN 26 H, Creatinine 0.83, Estim Creat Clear Calc 53.45, Est GFR (MDRD) Non-Af 72, BUN/Creatinine Ratio 30.8 H, Glucose 111 H, Calcium 8.3 08/01/25 11:56: POC Glucose 153 H D/C Instructions DC O2, CPAP, BIPAP Needs Home O2 Discharge instructions: No Meaningful Use Info Meaningful Use Meaningful Use Diagnoses (Choose all that apply): None applicable Discharge Plan Admission Admit Date/Time: 07/29/25 23:01 Primary Reason for Your Visit: black stool Attending Provider: Geovanna Kauffman Primary Care Provider: Celia Al Consulting Providers: Ronnie Godwin; Aman Parra; Beti Rose; Tana Alonzo; Elizabeth Nava; Reginald Nava; Joanie Saucedo; Reginald Foy Instructions Patient Instructions: EGD (Upper Endoscopy): Post-op Additional Instructions / Restrictions: DISCHARGE INSTRUCTIONS PLEASE READ *Please take this with you to your next doctors appointment* - If you already have a revenue stamp clerk (GI doctor) please follow-up with them on discharge, if you need to establish with one you can follow-up with Dr. Parra in the office, please call the office to schedule an appointment if you need to establish care. -You will need to follow-up outpatient for a capsule endoscopy as was previously scheduled. If you have any questions about this please contact the outpatient doctor who ordered this - You have been discharged on Protonix 40 mg twice daily, ultimately this may be decreased to once daily but would recommend taking this twice daily until you follow-up with your outpatient physician -Please continue to follow with Dr. Nava on discharge, you have been continued on your Eliquis 5 mg twice a day -Would recommend lab work (CBC) to check your hemoglobin in 2 to 3 days through your primary care physician's office. Please call their office upon discharge to obtain order for lab work. -Please call your primary care provider's office upon discharge to schedule a hospital follow up within 1 week. -For any concerning signs or symptoms please call 911 or proceed to the nearest emergency department Discharge Orders/Prescriptions Prescriptions: Continued albuterol sulfate [Ventolin HFA] 90 mcg/actuation HFA aerosol inhaler 2 puff inhalation Q4H PRN (Reason: shortness of breath or wheezing) cholecalciferol (vitamin D3) 50 mcg (2,000 unit) capsule 50 mcg PO QDAY carvedilol 12.5 mg tablet 12.5 mg PO BID losartan 100 mg tablet 100 mg PO DAILY sertraline 25 mg tablet 25 mg PO QHS Slow Fe 137 mg (45 mg iron) tablet extended release 137 mg PO DAILY BIPAP -Bilevel Positive Airway Pressure ([facility] USE ONLY) Patient Comments: pt has home bipap, DME through [facility]. pt does not know settings acetaminophen 325 mg Tablet 650 mg PO Q6H PRN PRN (Reason: Pain 1-10 Or Fever >100.7) Qty: 0 0RF oxycodone 5 mg Tablet 5 mg PO Q8H PRN PRN (Reason: Pain Score 4-10) 5 Days Qty: 15 0RF furosemide [Lasix] 20 mg tablet 20 mg PO DAILY amlodipine 2.5 mg tablet 2.5 mg PO DAILY (DME) Contour Next Test Strips Strip 1 strip MISCELLANEOUS BID ezetimibe 10 mg tablet 10 mg PO DAILY rosuvastatin 10 mg tablet 10 mg PO QHS Spiriva Respimat 2.5 mcg/actuation mist 2 puff inhalation DAILY icosapent ethyl [Vascepa] 1 gram capsule 2 g PO BID Patient Comments: Patient does not always take this med as schedule. She doesn't always have an appetite, so she will not take them if she skips a meal. Eliquis 5 mg tablet 5 mg PO BID Jentadueto XR 2.5-1,000 mg tablet, IR - ER, biphasic 24hr 1 tab PO BID Kerendia 10 mg tablet 10 mg PO DAILY cilostazol 50 mg tablet 50 mg PO BID Qty: 60 5RF Changed pantoprazole 40 mg tablet,delayed release (DR/EC) 40 mg PO BID 30 Days Qty: 60 0RF Referrals / Follow Up: Celia Al DO [Primary Care Provider, Family Practice] - In 1 Week Friend,DO Aman [Med Staff - Active Staff, Gastroenterology] Referral Note: Call the office to schedule an establish care appointment if you do not already have a GI doctor you will follow up with Disposition Disposition (needs filled in before D/C Order can be placed): Home, Self Care Charges/Coding Visit Charges Inpatient E&M: 98000 Disch Hosp >30min
--- NOTE | 2025-08-01 13:23 | CASEMGMT ---
Patient has order for discharge. RN CM in to discuss needs at discharge. Patient denies needs or help at discharge. Patient had no further questions or concerns.
--- NOTE | 2025-08-01 13:37 | PHA.DC.MR.R ---
Pharmacy [place] Med Reconciliation Pharmacy Service has performed discharge medication reconciliation for this patient. The patient's discharge medication list was reviewed for discrepancies and discrepancies were resolved. Medications at Discharge Home Medications amlodipine 2.5 mg tablet 2.5 mg PO DAILY HTN 03/01/25 apixaban 5 mg tablet (Eliquis) 5 mg PO BID BLOOD THINNER 03/01/25 blood sugar diagnostic (Contour Next Test Strips) 03/01/25 ezetimibe 10 mg tablet 10 mg PO DAILY HLD 03/01/25 finerenone 10 mg tablet (Kerendia) 10 mg PO DAILY CKD 03/01/25 icosapent ethyl 1 gram capsule (Vascepa) 2 g PO BID HLD 03/01/25 linagliptin 2.5 mg-metformin ER 1,000 mg tablet,extended release 24 hr (Jentadueto XR) 1 tab PO BID DM 03/01/25 rosuvastatin 10 mg tablet 10 mg PO QHS HLD 03/01/25 tiotropium bromide 2.5 mcg/actuation mist for inhalation (Spiriva Respimat) 2 puff inhalation DAILY LUNG DISEASE 03/01/25 carvedilol 12.5 mg tablet 12.5 mg PO BID HTN 03/11/25 losartan 100 mg tablet 100 mg PO DAILY HTN 03/11/25 sertraline 25 mg tablet 25 mg PO QHS MOOD 03/11/25 albuterol sulfate 90 mcg/actuation aerosol inhaler (Ventolin HFA) 2 puff inhalation Q4H PRN shortness of breath or wheezing 04/12/25 cholecalciferol (vitamin D3) 50 mcg (2,000 unit) capsule 50 mcg PO QDAY SUPPLEMENT 04/12/25 ferrous sulfate 137 mg (45 mg iron) tablet,extended release (Slow Fe) 137 mg PO DAILY SUPPLEMENT 05/19/25 BIPAP -Bilevel Positive Airway Pressure ([facility] INFORMATIONAL USE ONLY) INGA 06/06/25 acetaminophen 325 mg tablet 650 mg (2 x 325 mg) PO Q6H PRN PRN Pain 1-10 Or Fever >100.7 #0 tabs 06/09/25 oxycodone 5 mg tablet 5 mg PO Q8H PRN PRN Pain Score 4-10 5 days #15 tabs 06/09/25 cilostazol 50 mg tablet 50 mg PO BID pain #60 tabs 07/27/25 furosemide 20 mg tablet (Lasix) 20 mg PO DAILY diuretic 07/29/25 pantoprazole 40 mg tablet,delayed release 40 mg PO BID GERD 30 days #60 tabs 08/01/25
[2025-08-01] MEDS: APIXABAN 5 MG TABLET PO (14:41)
[2025-08-01 15:43] VITALS: BP 169/72; PULSE 87; RESP 14; TEMP 36.8; O2SAT 98
== END 2025-08-01 15:58 | disposition home or self-care (01) | DRG 378 ==
LOC: ED 23:03 → PCU 23:30
PROVIDERS: Internal Medicine; Internal Medicine Gastroenterology; Admitting Provider Family Medicine; Emergency Provider Emergency Medicine; PCP Student in an Organized Health Care Education/Training Program; Visit Provider Internal Medicine
PROC: 0DJ08ZZ Inspection of Upper Intestinal Tract, Via Natural or Artificial Opening Endoscopic (ICD-10-PCS; CPT 43235; principal; 2025-07-31 16:10)
DX: K31.811 Angiodysplasia of stomach and duodenum with bleeding (principal); D68.32 Hemorrhagic disorder due to extrinsic circulating anticoagulants; D62 Acute posthemorrhagic anemia; I50.32 Chronic diastolic (congestive) heart failure; I13.0 Hypertensive heart and chronic kidney disease with heart failure and stage 1 through stage 4 chronic kidney disease, or unspecified chronic kidney disease; E11.40 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 with diabetic neuropathy, unspecified; D50.9 Iron deficiency anemia, unspecified; E11.22 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 with diabetic chronic kidney disease; J44.9 Chronic obstructive pulmonary disease, unspecified; F32.A Depression, unspecified; Z95.828 Presence of other vascular implants and grafts; I48.0 Paroxysmal atrial fibrillation; I70.221 Atherosclerosis of native arteries of extremities with rest pain, right leg; E11.51 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 with diabetic peripheral angiopathy without gangrene; E78.5 Hyperlipidemia, unspecified; F41.9 Anxiety disorder, unspecified; K21.9 Gastro-esophageal reflux disease without esophagitis; G47.33 Obstructive sleep apnea (adult) (pediatric); N18.2 Chronic kidney disease, stage 2 (mild); I95.9 Hypotension, unspecified; K31.89 Other diseases of stomach and duodenum; T45.515A Adverse effect of anticoagulants, initial encounter; R53.81 Other malaise; Z79.01 Long term (current) use of anticoagulants; Z87.19 Personal history of other diseases of the digestive system; Z79.899 Other long term (current) drug therapy; Z79.51 Long term (current) use of inhaled steroids; Z87.891 Personal history of nicotine dependence
CPT/HCPCS: 36415; 80048; 80053; 82962; 83735; 85014; 85018; 85025; 85027; 85610; 85730; 86850; 86900; 86901; 94640; 94668; 97161; 97165; 99285; C1889; P9016; A4216; J2916

== ENCOUNTER 2025-08-04 16:53 | Inpatient (IN) | payer MEDICARE, SELFPAY ==
[2025-08-04] VITALS (12 sets, daily range): BP systolic 110–205; BP diastolic 38–98; PULSE 64–88; RESP 12–21; TEMP 36.4–37.2; O2SAT 96–100; BMI 19.8
--- NOTE | 2025-08-04 17:05 | EKG12_ITS ---
Test Reason : Blood Pressure : */* mmHG Vent. Rate : 74 BPM Atrial Rate : 74 BPM P-R Int : 134 ms QRS Dur : 74 ms QT Int : 382 ms P-R-T Axes : 85 52 76 degrees QTcB Int : 424 ms Normal sinus rhythm Normal ECG Reconfirmed by Noa Caldwell ([id number]), desk editor BHUMI MCKEON ([id number]) on 08/07/2025 10:19:44 AM Also confirmed by Noa Caldwell ([id number]), desk editor BHUMI MCKEON [id number]) on 08/08/2025 8:16:13 AM Referred By: [email or web address] Confirmed By: Noa Caldwell
--- NOTE | 2025-08-04 17:05 | ED.VIS.GI ---
HPI HPI - GI History of Present Illness Chief Complaint: GI Bleed Informant: patient Narrative Narrative: Patient is a 80-year-old female with a history of GI bleeding, presenting with lightheadedness and melena today. - Reports feeling lightheaded around 1300 today while preparing for a follow-up appointment with her PCP after being recently admitted for UGIB. - PCP performed a fingerstick, revealing a hemoglobin level of 6.5 g/dL, and advised immediate ED evaluation. - Denies syncope, but reports feeling very lightheaded and needing to sit down. - Noted dark, loose stool today, with black discoloration on toilet paper, no gross blood --same symptoms she had when she was admitted for the upper GI bleed recently; last bowel movement was on Thursday (2d go), more like normal then. - Denies significant abdominal pain, nausea, or emesis; reports increased flatulence. - Resumed Eliquis 5 mg BID on Thursday night (3d ago), along with cilostazol. - Admitted last Thursday for hematochezia and hemoglobin of 6.7 g/dL; received 2 units of blood. - Endoscopy performed 4d ago by Dr. Parra, who cauterized multiple upper GI bleeding sites. - Discharged next day with hemoglobin of 7.6 g/dL. - Has received 5-6 transfusions recently due to recurrent anemia. - Underwent bone marrow biopsy in May, which was unremarkable. - Underwent vascular bypass surgery in May, following w/ Dr. Nava vascular. [facility] Medical History CHF exacerbation SOB (shortness of breath) Elevated brain natriuretic peptide (BNP) level Uncontrolled hypertension Atherosclerosis of right lower extremity with rest pain Diabetes mellitus, type 2 Neuropathy Wears partial dentures Post-menopausal Cancer Depression Anxiety Alcohol use Diabetes Ambulates with cane Arthritis Gout History of renal disease Excessive bleeding High cholesterol Low iron Anemia Back pain History of hiatal hernia Hypertension History of GI bleed Gastric reflux Former smoker BiPAP (biphasic positive airway pressure) dependence Chronic cough Leg cramps History of edema History of echocardiogram History of stress test History of atrial fibrillation Cardiology follow-up encounter History of CHF (congestive heart failure) Anemia Afib GI bleed COPD (chronic obstructive pulmonary disease) Hx of carotid stenosis Home Medications ?Medication ?Instructions ?Recorded ?Last Taken ?Type amlodipine 2.5 mg tablet 2.5 mg PO DAILY HTN 03/01/25 06/06/25 History apixaban 5 mg tablet (Eliquis) 5 mg PO BID BLOOD THINNER 03/01/25 06/03/25 History blood sugar diagnostic (Contour 03/01/25 Unknown History Next Test Strips) ezetimibe 10 mg tablet 10 mg PO DAILY HLD 03/01/25 06/06/25 History finerenone 10 mg tablet (Kerendia) 10 mg PO DAILY CKD 03/01/25 06/06/25 History icosapent ethyl 1 gram capsule 2 g PO BID HLD 03/01/25 06/05/25 History (Vascepa) linagliptin 2.5 mg-metformin ER 1 tab PO BID DM 03/01/25 06/03/25 History 1,000 mg tablet,extended release 24 hr (Jentadueto XR) rosuvastatin 10 mg tablet 10 mg PO QHS HLD 03/01/25 06/05/25 History tiotropium bromide 2.5 2 puff inhalation DAILY LUNG 03/01/25 06/05/25 History mcg/actuation mist for inhalation DISEASE (Spiriva Respimat) carvedilol 12.5 mg tablet 12.5 mg PO BID HTN 03/11/25 06/06/25 History losartan 100 mg tablet 100 mg PO DAILY HTN 03/11/25 06/06/25 History sertraline 25 mg tablet 25 mg PO QHS MOOD 03/11/25 06/05/25 History albuterol sulfate 90 mcg/actuation 2 puff inhalation Q4H PRN 04/12/25 06/05/25 History aerosol inhaler (Ventolin HFA) shortness of breath or wheezing cholecalciferol (vitamin D3) 50 50 mcg PO QDAY SUPPLEMENT 04/12/25 Unknown History mcg (2,000 unit) capsule ferrous sulfate 137 mg (45 mg 137 mg PO DAILY SUPPLEMENT 05/19/25 06/06/25 History iron) tablet,extended release (Slow Fe) BIPAP -Bilevel Positive Airway INGA 06/06/25 Unknown History Pressure ([facility] INFORMATIONAL USE ONLY) acetaminophen 325 mg tablet 650 mg (2 x 325 mg) PO Q6H PRN PRN 06/09/25 Unknown Rx Pain 1-10 Or Fever >100.7 #0 tabs oxycodone 5 mg tablet 5 mg PO Q8H PRN PRN Pain Score 06/09/25 Unknown Rx 4-10 5 days #15 tabs cilostazol 50 mg tablet 50 mg PO BID pain #60 tabs 07/27/25 Unknown Rx furosemide 20 mg tablet (Lasix) 20 mg PO DAILY diuretic 07/29/25 Unknown History pantoprazole 40 mg tablet,delayed 40 mg PO BID GERD 30 days #60 tabs 08/01/25 Unknown Rx release Allergy/AdvReac Type Severity Reaction Status Date / Time isosulfan blue Allergy Severe Anaphylaxis Verified 08/04/25 16:54 methylene blue Allergy Severe Anaphylaxis Verified 08/04/25 16:54 Sulfa (Sulfonamide Allergy Rash Verified 08/04/25 16:54 Antibiotics) Family History Mother Cancer Ovarian cancer Hypertension Heart disease Father Cancer Lung cancer. Hypertension Sister Kidney disease Sister Kidney disease Surgical History History of left mastectomy History of right mastectomy History of esophagogastroduodenoscopy (EGD) History of bronchoscopy History of cardiac ablation History of carotid endarterectomy History of bilateral breast reduction surgery History of colonoscopy History of cataract extraction (~2005) H/O: hysterectomy (~1998) Social History household members: spouse Smoking Status: Former smoker alcohol intake: current alcohol intake frequency: 0-2 drinks per day Alcohol type: wine substance use type: does not use ROS ROS ED Constitutional Constitutional ED: Denies chills or fever(s) Eyes Eyes: Denies change in vision or diplopia ENT ENT ED: Denies rhinorrhea or sore throat Cardiovascular Cardiovascular: Reports lightheadedness and orthostatic symptoms; Denies chest pain, palpitations or syncope Respiratory/Chest Respiratory/Chest: Denies cough or dyspnea Gastrointestinal Gastrointestinal: Reports melena; Denies abdominal pain, diarrhea, nausea or vomiting Genitourinary Genitourinary ED: Denies dysuria or hematuria Musculoskeletal Musculoskeletal: Denies back pain or neck pain Integumentary Denies abscess or rash Neurologic Neurologic: Denies headache(s), paresthesias or weakness Psychiatric Psychiatric: Denies anxiety or suicidal thoughts EXAM Physical Exam Const Vital Signs: 08/04/25 16:53 08/04/25 17:09 08/04/25 18:07 Temperature 98 F 98 F 99 F Temperature Source Oral Oral Oral Pulse Rate 88 67 69 Pulse Rate [Lying] Pulse Rate [Sitting (for 1 minute prior to obtaining)] Pulse Rate [Standing (for 1 minute prior to obtaining)] Respiratory Rate 12 12 21 H Blood Pressure 159/55 H 146/60 H 141/48 H Blood Pressure [Lying] Blood Pressure [Sitting (for 1 minute prior to obtaining)] Blood Pressure [Standing (for 1 minute prior to obtaining)] Blood Pressure Mean 89 88 79 Blood Pressure Mean [Lying] Blood Pressure Mean [Sitting (for 1 minute prior to obtaining)] Blood Pressure Mean [Standing (for 1 minute prior to obtaining)] Pulse Ox 96 100 98 Oxygen Delivery Method Room Air Room Air Room Air 08/04/25 18:09 Temperature Temperature Source Pulse Rate Pulse Rate [Lying] 67 Pulse Rate [Sitting (for 1 minute prior to obtaining)] 72 Pulse Rate [Standing (for 1 minute prior to obtaining)] 80 Respiratory Rate Blood Pressure Blood Pressure [Lying] 135/52 H Blood Pressure [Sitting (for 1 minute prior to obtaining)] 125/98 H Blood Pressure [Standing (for 1 minute prior to obtaining)] 110/54 L Blood Pressure Mean Blood Pressure Mean [Lying] 79 Blood Pressure Mean [Sitting (for 1 minute prior to obtaining)] 107 Blood Pressure Mean [Standing (for 1 minute prior to obtaining)] 72 Pulse Ox Oxygen Delivery Method Positive well nourished and well developed General Appearance ED: well developed and NAD HEENT Reports moist mucous membranes normocephalic and atraumatic Eyes PERRL and EOMs intact bilaterally Neck full ROM and supple Resp normal respiratory effort and clear to auscultation bilaterally Cardio regular rate and regular rhythm Heart Sounds: murmur systolic I/ soft left sternal border GI non-tender and non-distended Auscultation: normoactive bowel sounds Palpation: soft Back/Spine no CVA tenderness General Back: other FROM Extremity normal to inspection General Extremety ED: Negative for edema, pulses abnormal or tenderness General Extremity: Negative for edema or pulses abnormal Neuro oriented x3, CN's II-XII intact bilaterally and no sensory deficits noted Sensorium / Orientation: awake and alert Motor Exam: strength 5/5 throughout Skin no rashes or lesions noted and no wounds MDM MDM MDM Narrative Medical decision making narrative: Before arriving, a fingerstick hemoglobin in the office was 6.5. Here, her hemoglobin in the lab is 7.4. She has positive orthostatic vital signs, although she did not become acutely symptomatic. Her BUN is 29 and creatinine is 1.25. Her potassium is slightly elevated at 5.2, but there are no EKG changes suggestive of ischemia or hyperkalemia. Given these findings and the fact that she had another black stool today, the overall picture is consistent with recurrent upper GI bleeding likely related to restarting apixaban. I discussed this with Dr. Parra, who will be rounding in the hospital tomorrow. He advises admitting the patient, administering one unit of blood, consulting the hospitalist, and admitting her. Patient consented to 1 unit of blood transfusion which plan is to start in the ED in addition to IV pantoprazole. At this time the patient does not have a resting tachycardia and is feeling well while resting and lying. Plan is to discontinue her anticoagulation and continue pantoprazole and GI to evaluate further tomorrow. Portions of this note were generated using voice recognition software ([employer]). I have reviewed the contents and every effort has been made to ensure accuracy; however, inadvertent errors in grammar, spelling, punctuation, or word choice may occur, that were not noted before signing the document and should not alter the intended clinical meaning. History & Record Review Additional record(s) reviewed:: Prior inpatient record (EGD showing multiple 5 mm angioectasias with bleeding in the cardia and fundus of stomach - cauterized) Lab Data Attestation: I reviewed the patient's lab results. Labs: Laboratory Results - last 24 hr 08/04/25 17:30 WBC 5.5 RBC 2.35 L Hgb 7.4 L Hct 22.3 L MCV 94.9 MCH 31.5 MCHC 33.2 RDW Std Deviation 58.8 H RDW Coeff of [place] 17.2 H Plt Count 145 L MPV 9.7 Immature Gran % (Auto) 0.400 Neut % (Auto) 73.2 H Lymph % (Auto) 14.1 L [place] % (Auto) 8.1 Eos % (Auto) 3.3 Baso % (Auto) 0.9 Absolute Neuts (auto) 4.0 Absolute Lymphs (auto) 0.77 L Nucleated RBC % 0 Sodium 134 Potassium 5.2 H Chloride 104 Carbon Dioxide 19.4 L Anion Gap 12 BUN 29 H Creatinine 1.25 H Estim Creat Clear Calc 33.40 L Est GFR (MDRD) Non-Af 44 L BUN/Creatinine Ratio 22.8 H Glucose 108 H Calcium 8.7 Blood Type O POSITIVE Antibody Screen NEGATIVE Rhythm Strip Rhythm Strip: Sinus Rhythm Rate: 85 Ectopy: None EKG Initial EKG: Attestation: I personally reviewed and interpreted this EKG as follows: Interpretation: Sinus Rhythm and No Acute Injury Pattern Comments: Nml axis & intervals; nml EKG Management Discussion w/another healthcare provider: Hospitalist and Infirmary Attendant (GI friend) Critical Care Time Critical Care Time: Yes Critical care time (excluding procedures): 30-74 minutes (36 min), Including time spent:, Discussing w/Patient &/or Family/Home Lending Officer, Discussing w/Consultants, Arranging Admission or Transfer and Performing Direct Patient Care at Bedside Discharge Plan Dx/Rx/DC Orders Clinical Impression: Orthostatic hypotension, ABLA (acute blood loss anemia), UGIB (upper gastrointestinal bleed), Anticoagulated on apixaban Disposition Disposition: Acute Care [facility]
[2025-08-04 17:49] LABS: Hematocrit 22.3 % (37-47); Hemoglobin 7.4 g/dL (12.0-15.0); Immature Granulocytes Count 0.020 X10^3/uL (0.0-0.0); Mean Corp Hgb Conc 33.2 g/dL (32-36); Mean Corpuscular Volume 94.9 fL (81-99); Mean Platelet Vol. 9.7 fl (6.2-12.0); NRBC Flagged by Analyzer 0 % (0-5); Platelet Count 145 K/mm3 (150-450); RBC Distribution Width CV 17.2 % (11.6-14.6); RBC Distribution Width SD 58.8 fl (35.1-43.9); Red Blood Count 2.35 M/mm3 (4.2-5.4); White Blood Count 5.5 K/mm3 (4.4-11.0)
[2025-08-04 18:29] LABS: Anion Gap 12 (5-15); BUN 29 mg/dL (4-19); BUN/Creat Ratio 22.8 RATIO (10-20); Calcium,Total 8.7 mg/dL (7.6-11.0); Carbon Dioxide 19.4 mmol/L (21.0-32.0); Chloride 104 mmol/L (98-108); Estimated Creatinine Clearance 33.40 ml/min (50-250); Glucose 108 mg/dL (70-99); Potassium 5.2 mmol/L (3.3-5.1)
[2025-08-04] MEDS: Pantoprazole Sodium 40 MG in 0.9% Normal Saline (100mL MB+) 100 ML 300 MG IV (19:17)
--- NOTE | 2025-08-04 19:35 | PCM.HP.STD ---
HPI - General General Date of Admission: 08/04/25 Date of Service: 08/04/25 Chief Complaint: Lightheadedness and dark BM HPI Narrative ROLANDO LOVE, is a 80-year-old female history of hypertension, peripheral vascular disease with femoral bypass in May, GI bleed, diabetes, COPD, and INGA who presented [facility] ED 08/04/2025 from PCPs office with lightheadedness and melena. She was recently admitted for upper GI bleed and had multiple bleeding sites cauterized and was discharged home in stable condition. Today she is re presenting because she felt lightheaded around 1 PM while preparing for follow-up appointment for PCP and had a loose black bowel movement earlier today, which are the same symptoms she had when she was admitted for the upper GI bleed. At PCPs office they did a fingerstick and she had a hemoglobin of 6.5 so she was sent to the ED for evaluation. In the ED temp 98, heart rate 88, respiratory rate 12 and blood pressure 159/55. Pulse ox 96% on room air. CBC with white count 5.5 and hemoglobin 7.4, 3 days ago was 7.8. BMP with a potassium of 5.2, BUN of 29 and creatinine 1.25 up from 0.83 several days ago. GI contacted and recommended holding Yenny and that he will see patient in consultation. Due to concern for repeat GI bleed hospitalist contacted for admission. Patient evaluated at bedside in the ED, she reports she had been in her usual health but earlier today she had a dark bowel movement that was loose and she felt a little bit lightheaded a couple of times. No abdominal pain at this time and said she possibly had a very small amount earlier but no further pain. Not presently feeling nauseous. No chest pain or shortness of breath at this time [facility] Medical History CHF exacerbation SOB (shortness of breath) Elevated brain natriuretic peptide (BNP) level Uncontrolled hypertension Atherosclerosis of right lower extremity with rest pain Diabetes mellitus, type 2 Neuropathy Wears partial dentures Post-menopausal Cancer Depression Anxiety Alcohol use Diabetes Ambulates with cane Arthritis Gout History of renal disease Excessive bleeding High cholesterol Low iron Anemia Back pain History of hiatal hernia Hypertension History of GI bleed Gastric reflux Former smoker BiPAP (biphasic positive airway pressure) dependence Chronic cough Leg cramps History of edema History of echocardiogram History of stress test History of atrial fibrillation Cardiology follow-up encounter History of CHF (congestive heart failure) Anemia Afib GI bleed COPD (chronic obstructive pulmonary disease) Hx of carotid stenosis Home Medications ?Medication ?Instructions ?Recorded ?Last Taken ?Type amlodipine 2.5 mg tablet 2.5 mg PO DAILY HTN 03/01/25 06/06/25 History apixaban 5 mg tablet (Eliquis) 5 mg PO BID BLOOD THINNER 03/01/25 06/03/25 History blood sugar diagnostic (Contour 03/01/25 Unknown History Next Test Strips) ezetimibe 10 mg tablet 10 mg PO DAILY HLD 03/01/25 06/06/25 History finerenone 10 mg tablet (Kerendia) 10 mg PO DAILY CKD 03/01/25 06/06/25 History icosapent ethyl 1 gram capsule 2 g PO BID HLD 03/01/25 06/05/25 History (Vascepa) linagliptin 2.5 mg-metformin ER 1 tab PO BID DM 03/01/25 06/03/25 History 1,000 mg tablet,extended release 24 hr (Jentadueto XR) rosuvastatin 10 mg tablet 10 mg PO QHS HLD 03/01/25 06/05/25 History tiotropium bromide 2.5 2 puff inhalation DAILY LUNG 03/01/25 06/05/25 History mcg/actuation mist for inhalation DISEASE (Spiriva Respimat) carvedilol 12.5 mg tablet 12.5 mg PO BID HTN 03/11/25 06/06/25 History losartan 100 mg tablet 100 mg PO DAILY HTN 03/11/25 06/06/25 History sertraline 25 mg tablet 25 mg PO QHS MOOD 03/11/25 06/05/25 History albuterol sulfate 90 mcg/actuation 2 puff inhalation Q4H PRN 04/12/25 06/05/25 History aerosol inhaler (Ventolin HFA) shortness of breath or wheezing cholecalciferol (vitamin D3) 50 50 mcg PO QDAY SUPPLEMENT 04/12/25 Unknown History mcg (2,000 unit) capsule ferrous sulfate 137 mg (45 mg 137 mg PO DAILY SUPPLEMENT 05/19/25 06/06/25 History iron) tablet,extended release (Slow Fe) BIPAP -Bilevel Positive Airway INGA 06/06/25 Unknown History Pressure ([facility] INFORMATIONAL USE ONLY) acetaminophen 325 mg tablet 650 mg (2 x 325 mg) PO Q6H PRN PRN 06/09/25 Unknown Rx Pain 1-10 Or Fever >100.7 #0 tabs cilostazol 50 mg tablet 50 mg PO BID pain #60 tabs 07/27/25 Unknown Rx furosemide 20 mg tablet (Lasix) 20 mg PO DAILY diuretic 07/29/25 Unknown History pantoprazole 40 mg tablet,delayed 40 mg PO BID GERD 30 days #60 tabs 08/01/25 Unknown Rx release clindamycin phosphate 1 % lotion 1 applic topical BID PRN itching 08/04/25 Unknown History Allergy/AdvReac Type Severity Reaction Status Date / Time isosulfan blue Allergy Severe Anaphylaxis Verified 08/04/25 16:54 methylene blue Allergy Severe Anaphylaxis Verified 08/04/25 16:54 Sulfa (Sulfonamide Allergy Rash Verified 08/04/25 16:54 Antibiotics) Family History Mother Cancer Ovarian cancer Hypertension Heart disease Father Cancer Lung cancer. Hypertension Sister Kidney disease Sister Kidney disease Surgical History History of left mastectomy History of right mastectomy History of esophagogastroduodenoscopy (EGD) History of bronchoscopy History of cardiac ablation History of carotid endarterectomy History of bilateral breast reduction surgery History of colonoscopy History of cataract extraction (~2005) H/O: hysterectomy (~1998) Social History household members: spouse Smoking Status: Former smoker alcohol intake: current alcohol intake frequency: 0-2 drinks per day Alcohol type: wine substance use type: does not use ROS ROS Narrative General: Denies fever/chills HENT: Denies headache, slightly runny nose, denies sore throat EYES: Denies changes in vision Resp: Denies cough, denies shortness of breath Cardiac: Denies chest pain GI: Had 1 loose dark bowel movement earlier today, not presently having any abdominal pain or nausea : Denies changes in urination Extremity: Denies swelling MSK: Denies weakness Neuro: Small chronic numbness in the leg she had her bypass Heme: Some scattered bruising Skin: Denies rashes Psychiatric: No complaints voiced Patient's Goals Of Care . What would you like to achieve or improve as a result of your hospital stay?: To figure out what's going on and fix it Vital Signs Vital Signs Vital Signs: 08/04/25 16:53 08/04/25 17:09 08/04/25 18:07 Temperature 98 F 98 F 99 F Temperature Source Oral Oral Oral Pulse Rate 88 67 69 Pulse Rate [Lying] Pulse Rate [Sitting (for 1 minute prior to obtaining)] Pulse Rate [Standing (for 1 minute prior to obtaining)] Respiratory Rate 12 12 21 H Blood Pressure 159/55 H 146/60 H 141/48 H Blood Pressure [Lying] Blood Pressure [Sitting (for 1 minute prior to obtaining)] Blood Pressure [Standing (for 1 minute prior to obtaining)] Blood Pressure Mean 89 88 79 Blood Pressure Mean [Lying] Blood Pressure Mean [Sitting (for 1 minute prior to obtaining)] Blood Pressure Mean [Standing (for 1 minute prior to obtaining)] Pulse Ox 96 100 98 Oxygen Delivery Method Room Air Room Air Room Air 08/04/25 18:09 08/04/25 19:00 Temperature Temperature Source Pulse Rate 72 Pulse Rate [Lying] 67 Pulse Rate [Sitting (for 1 minute prior to obtaining)] 72 Pulse Rate [Standing (for 1 minute prior to obtaining)] 80 Respiratory Rate 18 Blood Pressure 151/49 H Blood Pressure [Lying] 135/52 H Blood Pressure [Sitting (for 1 minute prior to obtaining)] 125/98 H Blood Pressure [Standing (for 1 minute prior to obtaining)] 110/54 L Blood Pressure Mean 83 Blood Pressure Mean [Lying] 79 Blood Pressure Mean [Sitting (for 1 minute prior to obtaining)] 107 Blood Pressure Mean [Standing (for 1 minute prior to obtaining)] 72 Pulse Ox 99 Oxygen Delivery Method Room Air Weight Weight: 57.969 kg Body Mass Index (BMI) 20.0 Physical Exam Narrative General: Alert, oriented, no apparent distress HEENT: Atraumatic, normocephalic Eyes: Anicteric, normal conjunctiva, extraocular movements grossly intact Neck: Supple Respiratory: Clear to auscultation bilaterally, normal respiratory effort Cardiovascular: Regular rate and rhythm GI: Soft, nontender, nondistended Extremities: No edema Musculoskeletal: Moving all extremities Neuro: No overt focal neurological deficits Skin: No rashes appreciated Psych: Cooperative Results Lab / Micro Data 08/04/25 17:30 08/04/25 17:30 Labs: Laboratory Results - last 24 hr 08/04/25 17:30: WBC 5.5, RBC 2.35 L, Hgb 7.4 L, Hct 22.3 L, MCV 94.9, MCH 31.5, MCHC 33.2, RDW Std Deviation 58.8 H, RDW Coeff of [place] 17.2 H, Plt Count 145 L, MPV 9.7, Immature Gran % (Auto) 0.400, Neut % (Auto) 73.2 H, Lymph % (Auto) 14.1 L, [place] % (Auto) 8.1, Eos % (Auto) 3.3, Baso % (Auto) 0.9, Absolute Neuts (auto) 4.0, Absolute Lymphs (auto) 0.77 L, Nucleated RBC % 0, Sodium 134, Potassium 5.2 H, Chloride 104, Carbon Dioxide 19.4 L, Anion Gap 12, BUN 29 H, Creatinine 1.25 H, Estim Creat Clear Calc 33.40 L, Est GFR (MDRD) Non-Af 44 L, BUN/Creatinine Ratio 22.8 H, Glucose 108 H, Calcium 8.7, Blood Type O POSITIVE, Antibody Screen NEGATIVE, Crossmatch See Detail Rhythm Strip Rhythm Strip: Sinus Rhythm Rate: 85 Ectopy: None Assessment & Plan Assessment/Plan (1) Acute upper gastrointestinal bleeding: PLAN: Plan # Concern for GI bleed -Was recently admitted and had EGD with several sites cauterized and was discharged home in stable condition -Representing with lightheadedness and another melanotic stool -Hemoglobin 7.4, was 7.8 on discharge but did note a loose dark bowel movement with symptoms and was orthostatic positive -IV PPI -Cycle H&H posttransfusion -GI consult -N.p.o. midnight in the event patient ends up having intervention tomorrow -Hold Eliquis and cilostazol #SHIRIN - Creatinine 0.83 several days ago, 1.25 today - Patient did receive 1 unit packed red blood cells - Will hold losartan and Lasix - Does have stage III diastolic dysfunction confirmed on echo from 06/14/2025 so we will be cautious with fluids but will hold Lasix at this time # Peripheral vascular disease -With femoral bypass in May - Eliquis held - Will need to restart Eliquis or at the very least on aspirin in the next couple of days if at all possible due to her recent vascular surgery, did discuss this with her surgeon - The Eliquis was specifically for her A-fib so does not need a heparin drip but again would benefit from at least an antiplatelet after investigation #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 -Glucose checks and sliding scale insulin -Hold home oral hypoglycemic at this time #Hx COPD -Continue home inhalers or formulary equivalent -Incentive spirometer #Depression/anxiety -Continue home medications #INGA -When patient was recently here she only minimally used her home BiPAP so did not bring it and does not have a desire to use it at this time, can continue to evaluate for need but she reports she only uses it for a couple hours at home usually #Hypothyroidism -Continue Synthroid #Paroxysmal Atrial Fibrillation -Rate control: Decreasing carvedilol to 3.125 given patient's orthostasis, uptitrate as tolerated -Anticoagulation: Holding Eliquis #Hypertension - Given patient's orthostasis we will hold home amlodipine and decrease carvedilol -Holding home losartan at this time #DVT ppx: SCDs Geovanna Kauffman MD Charges/Coding Visit Charges Inpatient E&M: 34063 Init Hosp L2
--- NOTE | 2025-08-04 19:49 | CASEMGMT ---
Social work SW entered patient's room, introducing self and role at [facility]. Patient welcomed SW visit and confirmed nothing changing since last admission 07/29/25-08/01/25. Patient stated having no concerns and desiring to still discharge home with no needs. Handoff via email to acute SW/RN CM team for discharge planning needs that may arise. Genny Aldridge, BINGO CHECKER, BASEBALL INSPECTOR AND REPAIRER
[2025-08-04 21:12] LABS: Hematocrit 22.4 % (37-47); Hemoglobin 7.4 g/dL (12.0-15.0)
[2025-08-04] MEDS: Ensure Plus High Protein 120 ML LIQUID PO (21:29)
[2025-08-04] MEDS: Ipratropium 0.5 MG/2.5 ML SOLUTION INHALATION (21:56)
[2025-08-04] MEDS: 0.9% Normal Saline (500mL Bag) 500 ML 15 ML IV (22:46)
[2025-08-05] VITALS (9 sets, daily range): BP systolic 124–155; BP diastolic 43–80; PULSE 70–79; RESP 14–20; TEMP 36.6–36.8; O2SAT 96–98
[2025-08-05 02:45] LABS: Hematocrit 24.1 % (37-47); Hemoglobin 7.9 g/dL (12.0-15.0)
[2025-08-05 06:37] LABS: Hematocrit 23.9 % (37-47); Hemoglobin 8.1 g/dL (12.0-15.0); Immature Granulocytes Count 0.020 X10^3/uL (0.0-0.0); Mean Corp Hgb Conc 33.9 g/dL (32-36); Mean Corpuscular Volume 91.6 fL (81-99); Mean Platelet Vol. 9.7 fl (6.2-12.0); NRBC Flagged by Analyzer 0 % (0-5); Platelet Count 122 K/mm3 (150-450); RBC Distribution Width CV 17.2 % (11.6-14.6); RBC Distribution Width SD 57.4 fl (35.1-43.9); Red Blood Count 2.61 M/mm3 (4.2-5.4); White Blood Count 4.5 K/mm3 (4.4-11.0)
[2025-08-05 06:59] LABS: Anion Gap 9 (5-15); BUN 28 mg/dL (4-19); BUN/Creat Ratio 28.3 RATIO (10-20); Calcium,Total 8.5 mg/dL (7.6-11.0); Carbon Dioxide 21.3 mmol/L (21.0-32.0); Chloride 107 mmol/L (98-108); Estimated Creatinine Clearance 41.34 ml/min (50-250); Glucose 133 mg/dL (70-99); Potassium 4.5 mmol/L (3.3-5.1)
[2025-08-05] MEDS: Ipratropium 0.5 MG/2.5 ML SOLUTION INHALATION ×3 (07:17→19:35)
[2025-08-05 09:00] LABS: Hematocrit 24.1 % (37-47); Hemoglobin 8.1 g/dL (12.0-15.0)
[2025-08-05] MEDS: Pantoprazole Sodium 40 MG in 0.9% Normal Saline (100mL MB+) 100 ML 300 MG IV ×2 (10:22→22:19)
[2025-08-05 14:19] LABS: Hematocrit 26.4 % (37-47); Hemoglobin 9.0 g/dL (12.0-15.0)
--- NOTE | 2025-08-05 14:29 | PN_ITS ---
Subjective Subjective Patient seen and examined this morning. She had no active complaints. She was admitted with complaint of GI bleed. He is awaiting GI evaluation. Her nurse was by her bedside during review. She has remained hemodynamically stable. Objective Data Objective Data Vital Signs: Vital Signs Temp Pulse Resp BP Pulse Ox O2 Del Method 98.1 F 70 20 H 142/74 H 97 Room Air 08/05/25 07:28 08/05/25 14:13 08/05/25 14:13 08/05/25 07:28 08/05/25 07:28 08/05/25 07:28 Oxygen Delivery Method Room Air Weight: 126 lb 8.725 oz Body Mass Index (BMI) 19.8 Intake & Output: Intake and Output for Last 24 Hours 08/03/25 08/04/25 08/05/25 23:59 23:59 23:59 Intake Total 100 / 350 750 / 750 Balance 100 / 350 750 / 750 Lab / Micro Data 08/05/25 14:01 08/05/25 06:14 Labs: Laboratory Results - last 24 hr 08/04/25 17:30: WBC 5.5, RBC 2.35 L, Hgb 7.4 L, Hct 22.3 L, MCV 94.9, MCH 31.5, MCHC 33.2, RDW Std Deviation 58.8 H, RDW Coeff of [place] 17.2 H, Plt Count 145 L, MPV 9.7, Immature Gran % (Auto) 0.400, Neut % (Auto) 73.2 H, Lymph % (Auto) 14.1 L, [place] % (Auto) 8.1, Eos % (Auto) 3.3, Baso % (Auto) 0.9, Absolute Neuts (auto) 4.0, Absolute Lymphs (auto) 0.77 L, Nucleated RBC % 0, Sodium 134, Potassium 5.2 H, Chloride 104, Carbon Dioxide 19.4 L, Anion Gap 12, BUN 29 H, Creatinine 1.25 H, Estim Creat Clear Calc 33.40 L, Est GFR (MDRD) Non-Af 44 L, BUN/Creatinine Ratio 22.8 H, Glucose 108 H, Calcium 8.7, Blood Type O POSITIVE, Antibody Screen NEGATIVE, Crossmatch See Detail 08/04/25 20:46: Hgb 7.4 L, Hct 22.4 L 08/04/25 21:05: POC Glucose 75 08/05/25 02:36: Hgb 7.9 L, Hct 24.1 L 08/05/25 06:14: WBC 4.5, RBC 2.61 L, Hgb 8.1 L, Hct 23.9 L, MCV 91.6, MCH 31.0, MCHC 33.9, RDW Std Deviation 57.4 H, RDW Coeff of [place] 17.2 H, Plt Count 122 L, MPV 9.7, Immature Gran % (Auto) 0.400, Neut % (Auto) 65.2, Lymph % (Auto) 18.9 L , [place] % (Auto) 9.9, Eos % (Auto) 4.5, Baso % (Auto) 1.1 H, Absolute Neuts (auto) 2.9, Absolute Lymphs (auto) 0.84, Nucleated RBC % 0, Sodium 137, Potassium 4.5, Chloride 107, Carbon Dioxide 21.3, Anion Gap 9, BUN 28 H, Creatinine 1.00, Estim Creat Clear Calc 41.34 L, Est GFR (MDRD) Non-Af 57 L, B UN/Creatinine Ratio 28.3 H, Glucose 133 H, Calcium 8.5 08/05/25 06:24: POC Glucose 139 H 08/05/25 08:28: Hgb 8.1 L, Hct 24.1 L 08/05/25 11:08: POC Glucose 107 H 08/05/25 14:01: Hgb 9.0 L, Hct 26.4 L Rhythm Strip Rhythm Strip: Sinus Rhythm Rate: 85 Ectopy: None Physical Exam Const alert, oriented x3 and no apparent distress General Appearance: cooperative and well developed HEENT normocephalic, head/scalp atraumatic, moist oral mucous membranes and oropharynx normal Eyes EOMs intact bilaterally Neck supple and no JVD Lymph Lymphatic: no lymphedema noted Resp normal respiratory effort, normal air movement and clear to auscultation bilaterally Cardio regular rate, regular rhythm, S1 normal heart sound, S2 normal heart sound and no murmurs GI normal to inspection, nondistended, normoactive bowel sounds, soft to palpation and non-tender Extremity normal capillary refill, no clubbing, cyanosis or edema and no calf tenderness General Extremity: no tenderness to palpation of joints or extremities Skin General Skin Exam: no breakdown Neuro no focal motor deficits and no sensory deficits noted Motor Exam: general weakness Psych thought process normal and cooperative Appearance: appropriate Assessment & Plan Assessment/Plan (1) ABLA (acute blood loss anemia): (2) UGIB (upper gastrointestinal bleed): PLAN: Plan #GI bleed * Patient was admitted with complaint of lightheadedness and dark stools. She was recently admitted for GI bleed and had EGD with several sites been cauterized. She was discharged home but came back today with the symptoms. * Hemoglobin was 7.8 on discharge. Hb was 7.4 on admission * Gastroenterology consulted. On IV pantoprazole 40 mg twice daily. Eliquis and cilostazol on hold. * Currently NPO. Hydrate gently with IV fluid. Awaiting GI evaluation. * hb is now 9. She was transfused with one unit of PRBC #SHIRIN: Resolved. Creatinine is down to 1. #History of peripheral vascular disease * S/p femoral bypass in May 2025. On Eliquis which is currently on hold. Also on aspirin which is also on hold. Will await GI evaluation and then resume these. #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: Home meds on hold. Insulin sliding scale. Accu- Cheks ACHS. On Jentadueto at home. #History of COPD: Not in exacerbation. Breathing treatments bronchodilators. Incentive spirometry #Depression and anxiety: On sertraline #History of INGA: On BiPAP at home #Hypothyroidism: On Synthroid #Paroxysmal A-fib: Orthostatics were positive so her carvedilol was decreased to 3.125 mg twice daily on admission. Eliquis currently on hold #History of hypertension: On amlodipine which is on hold. Carvedilol reduced as above. Losartan is on hold. #Hyperlipidemia: On ezetimibe and icosapent as well as atorvastatin DVT prophylaxis: SCDs Charges/Coding Visit Charges Inpatient E&M: 22239 Subs Hosp L2
[2025-08-05] MEDS: FINERENONE 10 MG TABLET PO (17:15)
[2025-08-05] MEDS: 0.9% Saline Lock 10 ML Syringe IV (22:13)
[2025-08-06] VITALS (8 sets, daily range): BP systolic 153–191; BP diastolic 56–66; PULSE 62–78; RESP 12–18; TEMP 36.3–37.3; O2SAT 97–100; BMI 19.8
[2025-08-06] MEDS: Ipratropium 0.5 MG/2.5 ML SOLUTION INHALATION ×3 (07:08→19:44)
[2025-08-06 08:06] LABS: Hematocrit 25.9 % (37-47); Hemoglobin 8.6 g/dL (12.0-15.0); Immature Granulocytes Count 0.010 X10^3/uL (0.0-0.0); Mean Corp Hgb Conc 33.2 g/dL (32-36); Mean Corpuscular Volume 92.8 fL (81-99); Mean Platelet Vol. 9.3 fl (6.2-12.0); NRBC Flagged by Analyzer 0 % (0-5); Platelet Count 141 K/mm3 (150-450); RBC Distribution Width CV 17.8 % (11.6-14.6); RBC Distribution Width SD 59.7 fl (35.1-43.9); Red Blood Count 2.79 M/mm3 (4.2-5.4); White Blood Count 4.4 K/mm3 (4.4-11.0)
[2025-08-06] MEDS: FINERENONE 10 MG TABLET PO (08:06)
[2025-08-06 08:50] LABS: Anion Gap 8 (5-15); BUN 20 mg/dL (4-19); BUN/Creat Ratio 25.5 RATIO (10-20); Calcium,Total 8.8 mg/dL (7.6-11.0); Carbon Dioxide 23.9 mmol/L (21.0-32.0); Chloride 108 mmol/L (98-108); Estimated Creatinine Clearance 51.67 ml/min (50-250); Glucose 111 mg/dL (70-99); Potassium 4.5 mmol/L (3.3-5.1)
[2025-08-06] MEDS: Pantoprazole Sodium 40 MG in 0.9% Normal Saline (100mL MB+) 100 ML 300 MG IV ×2 (11:23→22:05)
--- NOTE | 2025-08-06 11:43 | PN_ITS ---
Subjective Subjective Patient seen and examined with her nurse by her bedside. She had no active complaints. She denied having any dark stools. Review of systems otherwise negative. She is awaiting GI evaluation. She has remained hemodynamically stable. Objective Data Objective Data Vital Signs: Vital Signs Temp Pulse Resp BP Pulse Ox O2 Del Method 97.6 F L 78 16 153/56 H 98 Room Air 08/06/25 07:57 08/06/25 07:57 08/06/25 07:57 08/06/25 07:57 08/06/25 07:57 08/06/25 07:57 Oxygen Delivery Method Room Air Weight: 126 lb 8.725 oz Body Mass Index (BMI) 19.8 Intake & Output: Intake and Output for Last 24 Hours 08/04/25 08/05/25 08/06/25 23:59 23:59 23:59 Intake Total 100 / 350 1026 / 1026 650 / 650 Balance 100 / 350 1026 / 1026 650 / 650 Medical Nutrition Assessment Dietitian: Malnutrition Criteria Met Start: 08/05/25 15:54 Freq: Status: Active Protocol: Document 08/05/25 15:54 RMA (Rec: 08/05/25 15:54 RMA [id number]) Nutrition Malnutrition Evidence of Yes Malnutrition Exists Malnutrition (severe Chronic ): Evidenced By Suboptimal Energy Intake (Severe),Weight Loss (Severe), Physical Changes (Moderate) Intake Problem Inadequate Oral Intake Etiology related to altered GI function/bleed Signs/Symptoms as evidenced by NPO Status Active Problem Clinical Problem Chronic Disease or Condition Related Malnutrition Etiology severe protein-calorie malnutrition in the context of chronic disease related to inadequate oral intake Signs/Symptoms as evidenced by >10% unintentional weight loss x 6 months, PO meeting less than 75% estimated nutrition needs x 6 months, BMI 19.8, mild muscle wasting in the arms/legs and currently NPO Status Active Problem Recommendation Dietitian Recommend advance diet as tolerated to carbohydrate- Recommendations/ controlled/sodium-restricted. Changes Will d/c ensure plus HP with medpass for now. Will add PO glucerna shake as diet advanced from NPO. Lab / Micro Data 08/06/25 07:59 08/06/25 07:59 Labs: Laboratory Results - last 24 hr 08/05/25 11:08: POC Glucose 107 H 08/05/25 14:01: Hgb 9.0 L, Hct 26.4 L 08/05/25 17:06: POC Glucose 107 H 08/05/25 22:22: POC Glucose 108 H 08/06/25 06:10: POC Glucose 98 08/06/25 07:59: WBC 4.4, RBC 2.79 L, Hgb 8.6 L, Hct 25.9 L, MCV 92.8, MCH 30.8, MCHC 33.2, RDW Std Deviation 59.7 H, RDW Coeff of [place] 17.8 H, Plt Count 141 L, MPV 9.3, Immature Gran % (Auto) 0.200, Neut % (Auto) 65.5, Lymph % (Auto) 18.1 L , [place] % (Auto) 10.1 H, Eos % (Auto) 5.0, Baso % (Auto) 1.1 H, Absolute Neuts (auto) 2.9, Absolute Lymphs (auto) 0.79 L, Nucleated RBC % 0, Sodium 140, Potassium 4.5, Chloride 108, Carbon Dioxide 23.9, Anion Gap 8, BUN 20 H, Creatinine 0.78, Estim Creat Clear Calc 51.67, Est GFR (MDRD) Non-Af 77, B UN/Creatinine Ratio 25.5 H, Glucose 111 H, Calcium 8.8 Rhythm Strip Rhythm Strip: Sinus Rhythm Rate: 85 Ectopy: None Physical Exam Const alert, oriented x3 and no apparent distress General Appearance: cooperative and well developed HEENT normocephalic, head/scalp atraumatic, moist oral mucous membranes and oropharynx normal Eyes EOMs intact bilaterally Neck supple and no JVD Lymph Lymphatic: no lymphedema noted Resp normal respiratory effort, normal air movement and clear to auscultation bilaterally Cardio regular rate, regular rhythm, S1 normal heart sound, S2 normal heart sound and no murmurs GI normal to inspection, nondistended, normoactive bowel sounds, soft to palpation and non-tender Extremity normal capillary refill, no clubbing, cyanosis or edema and no calf tenderness General Extremity: no tenderness to palpation of joints or extremities Skin General Skin Exam: no breakdown Neuro no focal motor deficits and no sensory deficits noted Motor Exam: general weakness Psych thought process normal and cooperative Appearance: appropriate Assessment & Plan Assessment/Plan (1) ABLA (acute blood loss anemia): (2) UGIB (upper gastrointestinal bleed): PLAN: Plan #GI bleed * Patient was admitted with complaint of lightheadedness and dark stools. She was recently admitted for GI bleed and had EGD with several sites been cauterized. She was discharged home but came back with the symptoms. * Hemoglobin was 7.8 on discharge. Hb was 7.4 on admission * Gastroenterology consulted. On IV pantoprazole 40 mg twice daily. Eliquis and cilostazol on hold. * Started on clear liquids last night. Awaiting GI evaluation. * hb is 8.6 today.. She was transfused with one unit of PRBC #SHIRIN: Resolved. #History of peripheral vascular disease * S/p femoral bypass in May 2025. On Eliquis which is currently on hold. Also on aspirin which is also on hold. Will await GI evaluation and then resume these. #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: Home meds on hold. Insulin sliding scale. Accu- Cheks ACHS. On Jentadueto at home. #History of COPD: Not in exacerbation. Breathing treatments bronchodilators. Incentive spirometry #Depression and anxiety: On sertraline #History of INGA: On BiPAP at home #Hypothyroidism: On Synthroid #Paroxysmal A-fib: Orthostatics were positive so her carvedilol was decreased to 3.125 mg twice daily on admission. Eliquis currently on hold #History of hypertension: On amlodipine which is on hold. Carvedilol reduced as above. Losartan is on hold. #Hyperlipidemia: On ezetimibe and icosapent as well as atorvastatin DVT prophylaxis: SCDs Charges/Coding Visit Charges Inpatient E&M: 95350 Subs Hosp L2
[2025-08-06] MEDS: Polyethylene Glycol 3350 BOWEL PREP PO (20:51)
[2025-08-06] MEDS: 0.9% Saline Lock 10 ML Syringe IV (22:03)
[2025-08-07] VITALS (12 sets, daily range): BP systolic 128–188; BP diastolic 47–86; PULSE 60–80; RESP 15–18; TEMP 36.4–36.8; O2SAT 97–100
[2025-08-07 04:47] LABS: Hematocrit 31.1 % (37-47); Hemoglobin 10.2 g/dL (12.0-15.0); Immature Granulocytes Count 0.040 X10^3/uL (0.0-0.0); Mean Corp Hgb Conc 32.8 g/dL (32-36); Mean Corpuscular Volume 93.4 fL (81-99); Mean Platelet Vol. 9.1 fl (6.2-12.0); NRBC Flagged by Analyzer 0 % (0-5); Platelet Count 200 K/mm3 (150-450); RBC Distribution Width CV 17.4 % (11.6-14.6); RBC Distribution Width SD 59.2 fl (35.1-43.9); Red Blood Count 3.33 M/mm3 (4.2-5.4); White Blood Count 6.8 K/mm3 (4.4-11.0)
[2025-08-07 04:57] LABS: Prothrombin Time (Protime)PT. 13.8 SECONDS (11.7-14.9)
[2025-08-07 04:58] LABS: Partial Thromboplast Time 32.7 Seconds (24.1-36.2)
[2025-08-07 05:12] LABS: Anion Gap 12 (5-15); BUN 13 mg/dL (4-19); BUN/Creat Ratio 14.9 RATIO (10-20); Calcium,Total 9.7 mg/dL (7.6-11.0); Carbon Dioxide 22.1 mmol/L (21.0-32.0); Chloride 103 mmol/L (98-108); Estimated Creatinine Clearance 46.44 ml/min (50-250); Glucose 134 mg/dL (70-99); Potassium 5.2 mmol/L (3.3-5.1)
[2025-08-07] MEDS: Ipratropium 0.5 MG/2.5 ML SOLUTION INHALATION ×2 (06:54→19:40)
--- NOTE | 2025-08-07 07:05 | PCM.PN.HOSP ---
Reason for Visit Chief Complaint: Lightheadedness and dark BM Subjective Subjective Back and forth to the bathroom for the colon prep. Stool was dark. Objective Data Objective Data Vital Signs: Vital Signs Temp Pulse Resp BP Pulse Ox O2 Del Method 36.4 C L 60 18 146/47 H 99 Room Air 08/07/25 05:36 08/07/25 06:55 08/07/25 06:55 08/07/25 05:36 08/07/25 05:36 08/07/25 05:36 Oxygen Delivery Method Room Air Weight: 57.4 kg Body Mass Index (BMI) 19.8 Intake & Output: Intake and Output for Last 24 Hours 08/05/25 08/06/25 08/07/25 23:59 23:59 23:59 Intake Total 1026 / 1026 850 / 850 189 1890 Balance 1026 / 1026 850 / 850 1889 Medical Nutrition Assessment Dietitian: Malnutrition Criteria Met Start: 08/05/25 15:54 Freq: Status: Active Protocol: Document 08/05/25 15:54 RMA (Rec: 08/05/25 15:54 RMA [id number]) Nutrition Malnutrition Evidence of Yes Malnutrition Exists Malnutrition (severe Chronic ): Evidenced By Suboptimal Energy Intake (Severe),Weight Loss (Severe), Physical Changes (Moderate) Intake Problem Inadequate Oral Intake Etiology related to altered GI function/bleed Signs/Symptoms as evidenced by NPO Status Active Problem Clinical Problem Chronic Disease or Condition Related Malnutrition Etiology severe protein-calorie malnutrition in the context of chronic disease related to inadequate oral intake Signs/Symptoms as evidenced by >10% unintentional weight loss x 6 months, PO meeting less than 75% estimated nutrition needs x 6 months, BMI 19.8, mild muscle wasting in the arms/legs and currently NPO Status Active Problem Recommendation Dietitian Recommend advance diet as tolerated to carbohydrate- Recommendations/ controlled/sodium-restricted. Changes Will d/c ensure plus HP with medpass for now. Will add PO glucerna shake as diet advanced from NPO. Lab / Micro Data 08/07/25 04:39 08/07/25 04:39 Labs: Laboratory Results - last 24 hr 08/06/25 07:59: WBC 4.4, RBC 2.79 L, Hgb 8.6 L, Hct 25.9 L, MCV 92.8, MCH 30.8, MCHC 33.2, RDW Std Deviation 59.7 H, RDW Coeff of [place] 17.8 H, Plt Count 141 L, MPV 9.3, Immature Gran % (Auto) 0.200, Neut % (Auto) 65.5, Lymph % (Auto) 18.1 L, [place] % (Auto) 10.1 H, Eos % (Auto) 5.0, Baso % (Auto) 1.1 H, Absolute Neuts (auto) 2.9, Absolute Lymphs (auto) 0.79 L, Nucleated RBC % 0, Sodium 140, Potassium 4.5, Chloride 108, Carbon Dioxide 23.9, Anion Gap 8, BUN 20 H, Creatinine 0.78, Estim Creat Clear Calc 51.67, Est GFR (MDRD) Non-Af 77, BUN/Creatinine Ratio 25.5 H, Glucose 111 H, Calcium 8.8 08/06/25 11:33: POC Glucose 152 H 08/06/25 15:31: POC Glucose 109 H 08/06/25 22:10: POC Glucose 94 08/07/25 04:39: WBC 6.8, RBC 3.33 L, Hgb 10.2 L, Hct 31.1 L, MCV 93.4, MCH 30.6, MCHC 32.8, RDW Std Deviation 59.2 H, RDW Coeff of [place] 17.4 H, Plt Count 200, MPV 9.1, Immature Gran % (Auto) 0.600, Neut % (Auto) 69.6, Lymph % (Auto) 15.3 L, [place] % (Auto) 8.4, Eos % (Auto) 4.6, Baso % (Auto) 1.5 H, Absolute Neuts (auto) 4.7, Absolute Lymphs (auto) 1.04, Nucleated RBC % 0, PT 13.8, INR 1.0, APTT 32.7, Sodium 137, Potassium 5.2 H, Chloride 103, Carbon Dioxide 22.1, Anion Gap 12, BUN 13, Creatinine 0.89, Estim Creat Clear Calc 46.44 L, Est GFR (MDRD) Non-Af 66, BUN/Creatinine Ratio 14.9, Glucose 134 H, Calcium 9.7 08/07/25 06:28: POC Glucose 105 Rhythm Strip Rhythm Strip: Sinus Rhythm Rate: 85 Ectopy: None Physical Exam Const alert and no apparent distress Constitutional Narrative: stool on toilet bowl black. No alfonso hematochezia. Resp normal respiratory effort, no retractions, no use of accessory muscles and clear to auscultation bilaterally Cardio regular rate, regular rhythm, S1 normal heart sound and S2 normal heart sound GI normal to inspection, nondistended, normoactive bowel sounds and soft to palpation Neuro Sensorium / Orientation: awake and alert Psych affect normal Assessment & Plan Assessment/Plan (1) ABLA (acute blood loss anemia): (2) UGIB (upper gastrointestinal bleed): PLAN: Plan GI bleed recurrent. On 08/01 she had an EGD that showed multiple bleeding angiectasias and Dieulafoy lesion of the stomach. Patient was admitted with complaint of lightheadedness and dark stools. She was recently admitted for GI bleed and had EGD with several sites been cauterized. She was discharged home but came back with the symptoms. Hemoglobin was 7.8 on discharge. Hb was 7.4 on admission Gastroenterology consulted. On IV pantoprazole 40 mg twice daily. Eliquis and cilostazol on hold. Started on clear liquids last night. Awaiting GI evaluation. Hg 10.2. Transfused 1 unit PRBCs. endoscopy today. Chronic conditions: History of peripheral vascular disease S/p femoral bypass in May 2025. On Eliquis which is currently on hold. Also on aspirin which is also on hold. Will await GI evaluation and then resume these. 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: Home meds on hold. Insulin sliding scale. Accu-Cheks ACHS. On Jentadueto at home. History of COPD: Not in exacerbation. Breathing treatments bronchodilators. Incentive spirometry Depression and anxiety: On sertraline History of INGA: On BiPAP at home Hypothyroidism: On Synthroid Paroxysmal A-fib: Orthostatics were positive so her carvedilol was decreased to 3.125 mg twice daily on admission. Eliquis currently on hold History of hypertension: On amlodipine which is on hold. Carvedilol reduced as above. Losartan is on hold. Hyperlipidemia: On ezetimibe and icosapent as well as atorvastatin DVT prophylaxis: SCDs Charges/Coding Visit Charges Inpatient E&M: 45292 Subs Hosp L2
--- NOTE | 2025-08-07 07:40 | CON.PCM.GI_ITS ---
HPI Consult Data Date of Consult: 08/07/25 HPI Narrative HPI Narrative: ROLANDO LOVE, is a 80-year-old female with a complex history (HTN, PVD s/p femoral bypass on ASA, A-fib on Eliquis, COPD, INGA, DM) who presents with lightheadedness and melena. She was recently hospitalized for an upper GI bleed (UGIB) requiring cauterization of multiple sites. Today, she experienced a loose, black bowel movement followed by lightheadedness at her PCP?s office. She denies current abdominal pain, nausea, chest pain, or shortness of breath.? * Labs (Current): * Hgb:?7.4 g/dL (PCP fingerstick 6.5; 3 days ago 7.8). * WBC:?5.5. * BUN:?29 (Elevated). * Cr:?1.25 (Baseline 0.83). * K+:?5.2.] [facility] Medical History CHF exacerbation SOB (shortness of breath) Elevated brain natriuretic peptide (BNP) level Uncontrolled hypertension Atherosclerosis of right lower extremity with rest pain Diabetes mellitus, type 2 Neuropathy Wears partial dentures Post-menopausal Cancer Depression Anxiety Alcohol use Diabetes Ambulates with cane Arthritis Gout History of renal disease Excessive bleeding High cholesterol Low iron Anemia Back pain History of hiatal hernia Hypertension History of GI bleed Gastric reflux Former smoker BiPAP (biphasic positive airway pressure) dependence Chronic cough Leg cramps History of edema History of echocardiogram History of stress test History of atrial fibrillation Cardiology follow-up encounter History of CHF (congestive heart failure) Anemia Afib GI bleed COPD (chronic obstructive pulmonary disease) Hx of carotid stenosis Home Medications ?Medication ?Instructions ?Recorded ?Last Taken ?Type amlodipine 2.5 mg tablet 2.5 mg PO DAILY HTN 03/01/25 06/06/25 History apixaban 5 mg tablet (Eliquis) 5 mg PO BID BLOOD THINN ER 03/01/25 06/03/25 History blood sugar diagnostic (Contour 03/01/25 Unknown Hist ory Next Test Strips) ezetimibe 10 mg tablet 10 mg PO DAILY HLD 03/01/25 06/06/25 History finerenone 10 mg tablet (Kerendia) 10 mg PO DAILY CKD 03/01/25 06/06/25 History icosapent ethyl 1 gram capsule 2 g PO BID HLD 03/01/25 06/05/25 History (Vascepa) linagliptin 2.5 mg-metformin ER 1 tab PO BID DM 06/03/25 History 1,000 mg tablet,extended release 24 hr (Jentadueto XR) rosuvastatin 10 mg tablet 10 mg PO QHS HLD 03/01/25 History tiotropium bromide 2.5 2 puff inhalation DAILY LUNG 03/01/25 06/05/25 History mcg/actuation mist for inhalation DISEASE (Spiriva Respimat) carvedilol 12.5 mg tablet 12.5 mg PO BID HTN 03/11/25 06/06/25 History losartan 100 mg tablet 100 mg PO DAILY HTN 03/11/25 06/06/25 History sertraline 25 mg tablet 25 mg PO QHS MOOD 03/11/25 1 History albuterol sulfate 90 mcg/actuation 2 puff inhalation Q 4H PRN 04/12/25 06/05/25 History aerosol inhaler (Ventolin HFA) shortness of breath or wheezing cholecalciferol (vitamin D3) 50 50 mcg PO QDAY SUPPLEM ENT 04/12/25 Unknown History mcg (2,000 unit) capsule ferrous sulfate 137 mg (45 mg 137 mg PO DAILY SUPPLEME NT 05/19/25 06/06/25 History iron) tablet,extended release (Slow Fe) BIPAP -Bilevel Positive Airway INGA 06/06/25 Unknown Hi story Pressure ([facility] INFORMATIONAL USE ONLY) acetaminophen 325 mg tablet 650 mg (2 x 325 mg) PO Q6H PRN PRN 06/09/25 Unknown Rx Pain 1-10 Or Fever >100.7 #0 tabs cilostazol 50 mg tablet 50 mg PO BID pain #60 tabs 1 09/27/24 Unknown Rx furosemide 20 mg tablet (Lasix) 20 mg PO DAILY diureti c 07/29/25 Unknown History pantoprazole 40 mg tablet,delayed 40 mg PO BID GERD 30 days #60 tabs 08/01/25 Unknown Rx release clindamycin phosphate 1 % lotion 1 applic topical BID PRN itching 08/04/25 Unknown History Allergy/AdvReac Type Severity Reaction Status Date / Time isosulfan blue Allergy Severe Anaphylaxis Verified 08/04/25 16:54 methylene blue Allergy Severe Anaphylaxis Verified 08/04/25 16:54 Sulfa (Sulfonamide Allergy Rash Verified 08/04/25 16:54 Antibiotics) Family History Mother Cancer Ovarian cancer Hypertension Heart disease Father Cancer Lung cancer. Hypertension Sister Kidney disease Sister Kidney disease Surgical History History of left mastectomy History of right mastectomy History of esophagogastroduodenoscopy (EGD) History of bronchoscopy History of cardiac ablation History of carotid endarterectomy History of bilateral breast reduction surgery History of colonoscopy History of cataract extraction (~2005) H/O: hysterectomy (~1998) Social History household members: spouse Smoking Status: Former smoker alcohol intake: current alcohol intake frequency: 0-2 drinks per day Alcohol type: wine substance use type: does not use ROS Constitutional Constitutional: Denies fatigue, fever(s), poor appetite, weight gain or weight loss Gastrointestinal Gastrointestinal: Denies belching, bloating, change in bowel habits, change in stool character, chewing difficulty, coffee ground emesis, constipation, cramping, diarrhea, dyspepsia, dysphagia, early satiety, excessive flatus, fecal incontinence, heartburn, hematemesis, hematochezia, hemorrhoids, loose stools, melena, nausea, odynophagia, rectal bleeding, tenesmus, vomiting or weight changes Physical Exam Const alert, oriented x3, no apparent distress and healthy appearing General Appearance: cooperative GI normal to inspection, nondistended, normoactive bowel sounds, soft to palpation, non-tender and non-distended Percussion: normal to percussion Rectal Exam: deferred Medical Records Data Medical Nutrition Assessment Dietitian: Malnutrition Criteria Met Start: 08/05/25 15:54 Freq: Status: Active Protocol: Document 08/05/25 15:54 RMA (Rec: 08/05/25 15:54 RMA [id number]) Nutrition Malnutrition Evidence of Yes Malnutrition Exists Malnutrition (severe Chronic ): Evidenced By Suboptimal Energy Intake (Severe),Weight Loss (Severe), Physical Changes (Moderate) Intake Problem Inadequate Oral Intake Etiology related to altered GI function/bleed Signs/Symptoms as evidenced by NPO Status Active Problem Clinical Problem Chronic Disease or Condition Related Malnutrition Etiology severe protein-calorie malnutrition in the context of chronic disease related to inadequate oral intake Signs/Symptoms as evidenced by >10% unintentional weight loss x 6 months, PO meeting less than 75% estimated nutrition needs x 6 months, BMI 19.8, mild muscle wasting in the arms/legs and currently NPO Status Active Problem Recommendation Dietitian Recommend advance diet as tolerated to carbohydrate- Recommendations/ controlled/sodium-restricted. Changes Will d/c ensure plus HP with medpass for now. Will add PO glucerna shake as diet advanced from NPO. Lab / Micro Data 08/07/25 04:39 08/07/25 04:39 Labs: Laboratory Results - last 24 hr 08/06/25 07:59: WBC 4.4, RBC 2.79 L, Hgb 8.6 L, Hct 25.9 L, MCV 92.8, MCH 30.8, MCHC 33.2, RDW Std Deviation 59.7 H, RDW Coeff of [place] 17.8 H, Plt Count 141 L, MPV 9.3, Immature Gran % (Auto) 0.200, Neut % (Auto) 65.5, Lymph % (Auto) 18.1 L , [place] % (Auto) 10.1 H, Eos % (Auto) 5.0, Baso % (Auto) 1.1 H, Absolute Neuts (auto) 2.9, Absolute Lymphs (auto) 0.79 L, Nucleated RBC % 0, Sodium 140, Potassium 4.5, Chloride 108, Carbon Dioxide 23.9, Anion Gap 8, BUN 20 H, Creatinine 0.78, Estim Creat Clear Calc 51.67, Est GFR (MDRD) Non-Af 77, B UN/Creatinine Ratio 25.5 H, Glucose 111 H, Calcium 8.8 08/06/25 11:33: POC Glucose 152 H 08/06/25 15:31: POC Glucose 109 H 08/06/25 22:10: POC Glucose 94 08/07/25 04:39: WBC 6.8, RBC 3.33 L, Hgb 10.2 L, Hct 31.1 L, MCV 93.4, MCH 30.6, MCHC 32.8, RDW Std Deviation 59.2 H, RDW Coeff of [place] 17.4 H, Plt Count 200, MPV 9.1, Immature Gran % (Auto) 0.600, Neut % (Auto) 69.6, Lymph % (Auto) 15.3 L, [place] % (Auto) 8.4, Eos % (Auto) 4.6, Baso % (Auto) 1.5 H, Absolute Neuts (auto) 4.7, Absolute Lymphs (auto) 1.04, Nucleated RBC % 0, PT 13.8, INR 1.0, APTT 32.7, Sodium 137, Potassium 5.2 H, Chloride 103, Carbon Dioxide 22.1, Anion Gap 12, BUN 13, Creatinine 0.89, Estim Creat Clear Calc 46.44 L, Est GFR (MDRD) Non- Af 66, BUN/Creatinine Ratio 14.9, Glucose 134 H, Calcium 9.7 08/07/25 06:28: POC Glucose 105 Rhythm Strip Rhythm Strip: Sinus Rhythm Rate: 85 Ectopy: None Assessment & Plan Assessment/Plan (1) Anticoagulated on apixaban: (2) UGIB (upper gastrointestinal bleed): (3) ABLA (acute blood loss anemia): PLAN: Plan Assessment * Recurrent Acute Upper GI Bleeding:?Highly suspicious given recent history of cauterization, melena, and elevated BUN/Creatinine ratio. * Anemia:?Hgb 7.4, likely secondary to acute blood loss on chronic iron deficiency anemia. * Anticoagulation:?Patient is high-risk for bleeding recurrence due to Eliquis and Aspirin use. * Acute Kidney Injury:?Likely pre-renal secondary to volume depletion/blood loss. * Plan * Hold Eliquis and Aspirin?immediately; monitor coagulation profile. * IV Fluid Resuscitation:?Start IV fluids to address SHIRIN and volume loss. * Proton Pump Inhibitor (PPI):?Initiate IV PPI bolus followed by continuous infusion or BID dosing. * Transfusion Threshold:?Maintain Hgb > 7.0; consider transfusion of 1 unit PRBCs now given symptomatic lightheadedness and Hgb 7.4. * EGD:?Schedule repeat Esophagogastroduodenoscopy (EGD) and colonoscopy with capsule endoscopy for 08/05/2025 to identify and treat recurrent bleeding sites. * Monitoring:?Serial Hgb every 6?8 hours; telemetry for A-fib Portions of this note were generated using voice recognition software ([employer]). I have reviewed the contents and every effort has been made to ensure accuracy; however, inadvertent errors in grammar, spelling, punctuation, or word choice may occur, that were not noted before signing the document and should not alter the intended clinical meaning. Charges/Coding Visit Charges Inpatient E&M: 99612 Init Hosp L3
[2025-08-07] MEDS: Pantoprazole Sodium 40 MG in 0.9% Normal Saline (100mL MB+) 100 ML 300 MG IV ×2 (10:21→21:01)
--- NOTE | 2025-08-07 12:15 | PRE.ANES_ITS ---
ASA Classification* ASA Classification ASA Classification: 3 Assessment & Plan Anesthesia* Anesthesia Assessment Anesthesia Assessment: Discussed sedation and/or anesthesia options, risks, benefits, and alternatives with patient/parents/legal guardian/POA. Questions invited. The patient/parents/legal guardian/POA seems to understand and agrees to proceed with anesthesia plan. Reviewed the physical assessment, medical history, allergy history and patient home medications list prior to surgery/procedure/anesthetic and documented any changes. Performed airway and anesthesia risk assessments. Anesthesia Type Anesthesia Type: MAC Anesthesia Focused Assessment* Temperature: 97.8 F Pulse Rate: 63 Blood Pressure: 168/64 Respiratory Rate: 15 Pulse Ox: 100 Airway Assessment Mouth opens: >3 cm Mallampati Score: II Labs Anesthesia Preop lab: CBC WBC, (4.4-11.0) 6.8 K/mm3 Today, 04:39 RBC, (4.2-5.4) 3.33 M/mm3 L Today, 04:39 Hgb, (12.0-15.0) 10.2 g/dL L Today, 04:39 Hct, (37-47) 31.1 % L Today, 04:39 Plt Count, (150-450) 200 K/mm3 Today, 04:39 CHEMISTRY Potassium, (3.3-5.1) 5.2 mmol/L H Today, 04:39 Sodium, (133-145) 137 mmol/L Today, 04:39 Magnesium, (1.5-2.2) 1.7 mg/dL 07/29/25, 22:25 BUN, (4-19) 13 mg/dL Today, 04:39 Creatinine, (0.70-1.20) 0.89 mg/dL Today, 04:39 Glucose, (70-99) 134 mg/dL H Today, 04:39 POC Glucose, (74-106) 95 mg/dL Today, 10:58 TSH, (0.300-4.200) 0.898 uIU/mL 06/14/25, 05:21 COAG PT, (11.7-14.9) 13.8 SECONDS Today, 04:39 Pre-Assessment Diagnosis/Proposed Procedure Planned Operative Procedure(s): EGD. 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 When Was Last Pacemaker Check QUESTION #4 FULL TEXT: You/Your Family Experience fever (hyperthermia) with Anesthesia Last Oral Intake Last Oral intake: Last Oral Intake NPO since 23:59 08/06/25 22:28 Meds taken in AM with sips of Yes 08/06/25 22:28 water? 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 Has anyone observed you stop breathing during sleep? STOP Results Positive 08/04/25 20:30 QUESTION #5 FULL TEXT : Do you snore loudly (louder than talking or can be heard through closed doors)? 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 Specify any problems Hx of Preganancy in last 3 N/A 08/04/25 20:30 Months Nurse Filling Out Transfusion LFORREST 08/04/25 20:30 & Questions: Date: 08/04/25 08/04/25 20:30 Time: 20:32 08/04/25 20:30 Patient unable to answer at this time (ie. 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 INHALATION Q2H PRN PRN SOB &/OR WHEEZING Atorvastatin Calcium 20 mg 08/04/25 22:00 08/06/25 22:07 Atorvastatin Calcium 20 Mg Tablet PO 20 mg QHS ALEXI Administration Carvedilol 12.5 mg 08/05/25 08:00 08/07/25 10:21 Carvedilol 12.5 Mg Tablet PO 12.5 mg BIDCM ALEXI Administration Protocol Ezetimibe 10 mg 08/05/25 10:00 08/06/25 11:25 Ezetimibe 10 Mg Tablet PO 10 mg DAILY ALEXI Administration Ferrous Sulfate 325 mg 08/05/25 08:00 08/07/25 10:24 Ferrous Sulfate 325 Mg Tablet PO Not Given DAILYCM ALEXI Glucagon 1 mg 08/04/25 20:25 Glucagon 1 Mg/Ml Syringe IM X1 PRN HYPOGLYCEMIA Protocol Dextrose 250 mls @ 0 mls/hr 08/04/25 20:25 Dextrose 10%-Water IV .Q0M PRN HYPOGLYCEMIA Protocol As Directed Pantoprazole Sodium 40 mg/ 100 mls @ 300 mls/hr 08/05/25 10:00 08/07/25 10:45 Sodium Chloride IV Infused Q12 ALEXI Infusion Sodium Chloride 250 mls @ 15 mls/hr 08/04/25 20:26 IV .[id number] PRN Additional IVPB Infusion Sodium Chloride 500 mls @ 15 mls/hr 08/04/25 20:27 08/05/25 10:30 IV 0 mls/hr PRN PRN Infusion Blood Transfusion Icosapent Ethyl 2 gm 08/04/25 22:00 08/06/25 22:07 Icosapent Ethyl 1 Gm Capsule PO 2 gm BID ALEXI Administration Insulin Human Lispro 0 unit 08/04/25 22:00 08/07/25 11:11 Insulin Lispro 100 Unit/Ml Insuln.Pen SC Not Given ACHS AELXI Protocol Ipratropium [place] 0.5 mg 08/04/25 20:45 08/07/25 06:54 Ipratropium 0.5 Mg/2.5 Ml Solution INHALATION 0.5 mg Q6HWA.RT ALEXI Administration Melatonin 10 mg 08/04/25 20:25 Melatonin 10 Mg Tablet PO QHS PRN PRN INSOMNIA Ondansetron HCl 4 mg 08/04/25 20:25 Ondansetron 4 Mg/2 Ml Vial IV Q8H PRN PRN NAUSEA/VOMITING Sertraline HCl 25 mg 08/04/25 22:00 08/06/25 22:07 Sertraline 50 Mg Tablet PO 25 mg QHS ALEXI Administration Sodium Chloride 10 - 40 ml 08/04/25 20:26 08/06/25 22:03 0.9% Saline Lock 10 Ml Syringe IV 10 ml UD PRN Administration SALINE FLUSH PFSH Medical History CHF exacerbation SOB (shortness of breath) Elevated brain natriuretic peptide (BNP) level Uncontrolled hypertension Atherosclerosis of right lower extremity with rest pain Diabetes mellitus, type 2 Neuropathy Wears partial dentures Post-menopausal Cancer Depression Anxiety Alcohol use Diabetes Ambulates with cane Arthritis Gout History of renal disease Excessive bleeding High cholesterol Low iron Anemia Back pain History of hiatal hernia Hypertension History of GI bleed Gastric reflux Former smoker BiPAP (biphasic positive airway pressure) dependence Chronic cough Leg cramps History of edema History of echocardiogram History of stress test History of atrial fibrillation Cardiology follow-up encounter History of CHF (congestive heart failure) Anemia Afib GI bleed COPD (chronic obstructive pulmonary disease) Hx of carotid stenosis Home Medications ?Medication ?Instructions ?Recorded ?Last Taken ?Type amlodipine 2.5 mg tablet 2.5 mg PO DAILY HTN 03/01/25 06/06/25 History apixaban 5 mg tablet (Eliquis) 5 mg PO BID BLOOD THINN ER 03/01/25 06/03/25 History blood sugar diagnostic (Contour 03/01/25 Unknown Hist ory Next Test Strips) ezetimibe 10 mg tablet 10 mg PO DAILY HLD 03/01/25 06/06/25 History finerenone 10 mg tablet (Kerendia) 10 mg PO DAILY CKD 03/01/25 06/06/25 History icosapent ethyl 1 gram capsule 2 g PO BID HLD 03/01/25 06/05/25 History (Vascepa) linagliptin 2.5 mg-metformin ER 1 tab PO BID DM 06/03/25 History 1,000 mg tablet,extended release 24 hr (Jentadueto XR) rosuvastatin 10 mg tablet 10 mg PO QHS HLD 03/01/25 History tiotropium bromide 2.5 2 puff inhalation DAILY LUNG 03/01/25 06/05/25 History mcg/actuation mist for inhalation DISEASE (Spiriva Respimat) carvedilol 12.5 mg tablet 12.5 mg PO BID HTN 03/11/25 06/06/25 History losartan 100 mg tablet 100 mg PO DAILY HTN 03/11/25 06/06/25 History sertraline 25 mg tablet 25 mg PO QHS MOOD 03/11/25 1 History albuterol sulfate 90 mcg/actuation 2 puff inhalation Q 4H PRN 04/12/25 06/05/25 History aerosol inhaler (Ventolin HFA) shortness of breath or wheezing cholecalciferol (vitamin D3) 50 50 mcg PO QDAY SUPPLEM ENT 04/12/25 Unknown History mcg (2,000 unit) capsule ferrous sulfate 137 mg (45 mg 137 mg PO DAILY SUPPLEME NT 05/19/25 06/06/25 History iron) tablet,extended release (Slow Fe) BIPAP -Bilevel Positive Airway INGA 06/06/25 Unknown Hi story Pressure ([facility] INFORMATIONAL USE ONLY) acetaminophen 325 mg tablet 650 mg (2 x 325 mg) PO Q6H PRN PRN 06/09/25 Unknown Rx Pain 1-10 Or Fever >100.7 #0 tabs cilostazol 50 mg tablet 50 mg PO BID pain #60 tabs 1 09/27/24 Unknown Rx furosemide 20 mg tablet (Lasix) 20 mg PO DAILY diureti c 07/29/25 Unknown History pantoprazole 40 mg tablet,delayed 40 mg PO BID GERD 30 days #60 tabs 08/01/25 Unknown Rx release clindamycin phosphate 1 % lotion 1 applic topical BID PRN itching 08/04/25 Unknown History Allergy/AdvReac Type Severity Reaction Status Date / Time isosulfan blue Allergy Severe Anaphylaxis Verified 08/04/25 16:54 methylene blue Allergy Severe Anaphylaxis Verified 08/04/25 16:54 Sulfa (Sulfonamide Allergy Rash Verified 08/04/25 16:54 Antibiotics) Family History Mother Cancer Ovarian cancer Hypertension Heart disease Father Cancer Lung cancer. Hypertension Sister Kidney disease Sister Kidney disease Surgical History History of left mastectomy History of right mastectomy History of esophagogastroduodenoscopy (EGD) History of bronchoscopy History of cardiac ablation History of carotid endarterectomy History of bilateral breast reduction surgery History of colonoscopy History of cataract extraction (~2005) H/O: hysterectomy (~1998) Social History household members: spouse Smoking Status: Former smoker alcohol intake: current alcohol intake frequency: 0-2 drinks per day Alcohol type: wine substance use type: does not use Review of Systems (Anesthesia) ROS Narrative System reviewed and no additional complaints, except as documented.
[2025-08-07] MEDS: Lactated Ringers 1,000 ML 15 ML IV (13:00)
--- NOTE | 2025-08-07 13:15 | COLBX_PTH ---
PATIENT: ROLANDO LOVE #:[id number] LOC: MS3 U#:[id number] AGE/SX: 80/F [place] [facility] [place]: Dr. Reginald Foy DO : 1945 BED: 1 DIS: 08/09/2025 SPEC #: [id number] RECD: 08/07/25 17:48 STATUS: ALONZO REoJhn #: [id number] BLAISE: 08/07/25 13:[address]: Aman Parra DEPT: SURGICAL PATHOLOGY RECD BY: Jorge Alberto Terry ENTERED: 08/08/25 09:58 SP TYPE: COLON BX OTHR DR: DO Dr. Celia Us DO Dr. Nana Yaa Koram, MD Dr. Prakash Chand, MD Dr. Paige Pierce, MD Heather Evans, BUS PERSON DISHWASHER-C Tana Alonzo, BUS PERSON DISHWASHER-C MEIR Wyatt Tissues: A - Duodenum, NOS B - Cecum, NOS C - Ascending colon Procedures: Surgery Specimen Level IV HEADER OPERATION: Colonoscopy with polypectomy, biopsy PRE-OP DIAGNOSIS: Anticoagulated on apixaban, UGIB, ABLA TISSUE SUBMITTED: A. Duodenal polyp, B. Cecal polyp, C. Colitis ascending colon x2 MICROSCOPIC DIAGNOSIS A. Small intestine, duodenum, polyp, biopsy: - Oxyntic gastric mucosa consistent with fundic gland polyp (multiple fragments) - see note. Note: Although designated as duodenal polyp the tissue is composed of gastric-type mucosa. No intestinal-type mucosa/architecture is seen (deeper sections examined). Clinical correlation is necessary to determine the origin of the tissue. B. Large intestine, cecum biopsy: - Low grade dysplasia consistent with tubular adenoma. - Focal serrated gland configuration - see note. Note: The tissue is distorted by cautery artifact and fragmentation. The focal serrated gland configuration raises consideration of dysplasia associated with a sessile serrated adenoma. No high grade dysplasia is observed in these sections. Correlation with clinical and endoscopic findings is necessary. C. Colon, ascending, biopsy x2: - Two polypoid fragments of colonic mucosa with prolapse features and hyperplastic crypt change. - Negative for dysplasia (deeper sections examined). MICROSCOPIC DESCRIPTION Slides are reviewed. GROSS DESCRIPTION A. Received is one container labeled with the patient name and designated duodenal polyp. The specimen consists of multiple irregular fragments of menendez tissue that in aggregate measure 1.3 x 0.5 x 0.1 cm. The specimen is totally submitted in one cassette. B./Received is one container labeled with the patient name and designated cecal polyp. The specimen consists of multiple irregular fragments of menendez tissue that in aggregate measure 0.6 x 0.5 x 0.1 cm. The specimen is totally submitted in one cassette. C. Received is one container labeled with the patient name and designated colitis ascending colon x2. The specimen consists of two irregular fragments of menendez tissue that measure 0.3 and 0.4 cm. The specimen is totally submitted in one cassette NM 08/08/2025 CPT:[id number]
[2025-08-07] MEDS: Lidocaine 1% (5 ml sdv) 5 ML Vial 8 ML IV (16:30)
--- NOTE | 2025-08-07 17:36 | PCM.POST.ANE ---
Anesthesia: Postop Eval I Current Vital Signs Temperature: 97.6 F Pulse Rate: 78 Blood Pressure: 157/86 Respiratory Rate: 16 Pulse Ox: 99 Oxygen Delivery Method: Room Air Assessment Airway patent: Yes Spontaneous unlabored respirations: Yes Mental status: Awake and Calm nausea: No Vomiting: No Anesthesia Complication: No Fluid Hydration Crystalloid volume administer (ml): 400 Total IV fluid infused: 400 Progress Note Anesthesia document: Postop Eval 1 completed: Yes
--- NOTE | 2025-08-07 17:38 | OP.EGD_ITS ---
Patient Name: Terri Peters Procedure Date: 08/07/2025 1:33 PM Date of : 1945 Age: 80 Procedure: Upper GI endoscopy Indications: Iron deficiency anemia Providers: Aman Parra DO Medicines: Monitored Anesthesia Care Patient Profile: This is a 80 year old female. Refer to note in patient chart for documentation of history and physical. Complications: No immediate complications. Procedure: Pre-Anesthesia Assessment: - Prior to the procedure, a History and Physical was performed, and patient medications and allergies were reviewed. The patient is competent. The risks and benefits of the procedure and the sedation options and risks were discussed with the patient. All questions were answered and informed consent was obtained. Patient identification and proposed procedure were verified by the physician in the pre-procedure area. Mental Status Examination: alert and oriented. Airway Examination: normal oropharyngeal airway and neck mobility. Respiratory Examination: clear to auscultation. CV Examination: normal. Prophylactic Antibiotics: The patient does not require prophylactic antibiotics. Prior Anticoagulants: The patient has taken no anticoagulant or antiplatelet agents except for NSAID medication. ASA Grade Assessment: III - A patient with severe systemic disease. After reviewing the risks and benefits, the patient was deemed in satisfactory condition to undergo the procedure. The anesthesia plan was to use monitored anesthesia care (MAC). Immediately prior to administration of medications, the patient was re-assessed for adequacy to receive sedatives. The heart rate, respiratory rate, oxygen saturations, blood pressure, adequacy of pulmonary ventilation, and response to care were monitored throughout the procedure. The physical status of the patient was re-assessed after the procedure. After obtaining informed consent, the endoscope was passed under direct vision. Throughout the procedure, the patient's blood pressure, pulse, and oxygen saturations were monitored continuously. The Colonoscope was introduced through the mouth, and advanced to the fourth part of the duodenum. Small bowel enteroscopy was deemed necessary. The upper GI endoscopy was accomplished without difficulty. The patient tolerated the procedure well. Scope In: 4:33:52 PM Scope Out: 4:44:40 PM Total Procedure Duration Time 0 hours 10 minutes 48 seconds Findings: No gross lesions were noted in the entire esophagus. Red blood was found in the gastric body. One oozing cratered gastric ulcer with a visible vessel was found on the greater curvature of the stomach. The lesion was 6 mm in largest dimension. Coagulation for hemostasis using argon plasma at 0.3 liters/minute and 30 renae was successful. Estimated blood loss was minimal. One non-bleeding linear gastric ulcer with no stigmata of bleeding was found in the cardia. The lesion was 4 mm in largest dimension. Coagulation for destruction of remaining portion of lesion using argon plasma at 0.3 liters/minute and 20 renae was successful. Estimated blood loss was minimal. No gross lesions were noted in the entire examined duodenum. A single 8 mm sessile polyp with bleeding and no stigmata of recent bleeding was found in the gastric body. The polyp was removed with a hot snare. Resection and retrieval were complete. Impression: - No gross lesions in the entire esophagus. - Red blood in the gastric body. - Oozing gastric ulcer with a visible vessel. Treated with argon plasma coagulation (APC). - Non-bleeding gastric ulcer with no stigmata of bleeding. Treated with argon plasma coagulation (APC). - No gross lesions in the entire examined duodenum. - No specimens collected. Recommendation: - [facility]. - Resume regular diet. - Continue present medications. - Use Protonix (pantoprazole) 40 mg PO BID for 3 months. Procedure Code(s): --- Professional --- 40295, 59, Small intestinal endoscopy, enteroscopy beyond second portion of duodenum, not including ileum; with ablation of tumor(s), polyp(s), or other lesion(s) not amenable to removal by hot biopsy forceps, bipolar cautery or snare technique 31114, 51, Small intestinal endoscopy, enteroscopy beyond second portion of duodenum, not including ileum; with control of bleeding (eg, injection, bipolar cautery, unipolar cautery, laser, heater probe, stapler, plasma progress man) 22323, Small intestinal endoscopy, enteroscopy beyond second portion of duodenum, not including ileum; with removal of tumor(s), polyp(s), or other lesion(s) by snare technique CPT copyright 2021 [employer]. All rights reserved. The codes documented in this report are preliminary and upon act tutor review may be revised to meet current compliance requirements. Aman Parra DO 08/07/2025 5:37:59 PM This report has been signed electronically. Number of Addenda: 0 Note Initiated On: 08/07/2025 1:33 PM
--- NOTE | 2025-08-07 17:38 | OP.PROVAT_ITS ---
08/07/2025 Celia Al Do Re : Upper GI endoscopy procedure for Terri Peters Dear Dr. Al This procedure was performed on Thursday, August 07, 2025. My impressions and recommendations are as follows: Impressions : - No gross lesions in the entire esophagus. - Red blood in the gastric body. - Oozing gastric ulcer with a visible vessel. Treated with argon plasma coagulation (APC). - Non-bleeding gastric ulcer with no stigmata of bleeding. Treated with argon plasma coagulation (APC). - No gross lesions in the entire examined duodenum. - No specimens collected. Recommendations : - [facility]. - Resume regular diet. - Continue present medications. - Use Protonix (pantoprazole) 40 mg PO BID for 3 months. My findings are described in the full procedure note, which is enclosed. If I can be of further assistance, please feel free to contact me at . Sincerely, Aman Parra DO 08/07/2025 5:37:59 PM This report has been signed electronically.
--- NOTE | 2025-08-07 17:45 | OP.COLON_ITS ---
Patient Name: Terri Peters Procedure Date: 08/07/2025 4:44 PM Date of : 1945 Age: 80 Procedure: Colonoscopy Indications: Melena, Rectal bleeding, Gastrointestinal bleeding Providers: Aman Parra DO Medicines: Monitored Anesthesia Care Patient Profile: This is a 80 year old female. Refer to note in patient chart for documentation of history and physical. Last Colonoscopy: 6 months ago. Complications: No immediate complications. Procedure: Pre-Anesthesia Assessment: - Prior to the procedure, a History and Physical was performed, and patient medications and allergies were reviewed. The patient is competent. The risks and benefits of the procedure and the sedation options and risks were discussed with the patient. All questions were answered and informed consent was obtained. Patient identification and proposed procedure were verified by the physician in the pre-procedure area. Mental Status Examination: alert and oriented. Airway Examination: normal oropharyngeal airway and neck mobility. Respiratory Examination: clear to auscultation. CV Examination: normal. Prophylactic Antibiotics: The patient does not require prophylactic antibiotics. Prior Anticoagulants: The patient has taken no anticoagulant or antiplatelet agents except for NSAID medication. ASA Grade Assessment: III - A patient with severe systemic disease. After reviewing the risks and benefits, the patient was deemed in satisfactory condition to undergo the procedure. The anesthesia plan was to use monitored anesthesia care (MAC). Immediately prior to administration of medications, the patient was re-assessed for adequacy to receive sedatives. The heart rate, respiratory rate, oxygen saturations, blood pressure, adequacy of pulmonary ventilation, and response to care were monitored throughout the procedure. The physical status of the patient was re-assessed after the procedure. After I obtained informed consent, the scope was passed under direct vision. Throughout the procedure, the patient's blood pressure, pulse, and oxygen saturations were monitored continuously. The Colonoscope was introduced through the anus and advanced to the terminal ileum. The colonoscopy was performed without difficulty. The patient tolerated the procedure well. The quality of the bowel preparation was poor. The terminal ileum, ileocecal valve, appendiceal orifice, and rectum were photographed. Scope In: 4:48:28 PM Scope Withdrawal Time 0 hours 30 minutes 39 seconds Scope Out: 5:25:22 PM Total Procedure Duration Time 0 hours 36 minutes 54 seconds Findings: The perianal and digital rectal examinations were normal. A single large localized angiodysplastic lesion with bleeding was found in the ascending colon. Coagulation for hemostasis using argon plasma at 0.3 liters/minute and 30 renae was successful. Estimated blood loss was minimal. A 20 mm polyp was found in the cecum. The polyp was sessile. The polyp was removed with a hot snare. Resection and retrieval were complete. Verification of patient identification for the specimen was done. To prevent bleeding after the polypectomy, three hemostatic clips were successfully placed. Clip engineering designer: [employer]. There was no bleeding at the end of the procedure. Stool was found in the rectum, in the recto-sigmoid colon, in the sigmoid colon, in the descending colon, at the splenic flexure, in the transverse colon, at the hepatic flexure, in the ascending colon and in the cecum, interfering with visualization. Impression: - Preparation of the colon was poor. - A single bleeding colonic angiodysplastic lesion. Treated with argon plasma coagulation (APC). - One 20 mm polyp in the cecum, removed with a hot snare. Resected and retrieved. Clips were placed. Clip engineering designer: [employer]. - Stool in the rectum, in the recto-sigmoid colon, in the sigmoid colon, in the descending colon, at the splenic flexure, in the transverse colon, at the hepatic flexure, in the ascending colon and in the cecum. Recommendation: - Return patient to [facility] for [facility] care. - Resume previous diet. - No aspirin, ibuprofen, naproxen, or other non-steroidal anti-inflammatory drugs for 5 days after polyp removal. - Repeat colonoscopy in 1 year for surveillance. Aman Parra DO 08/07/2025 5:44:35 PM This report has been signed electronically. Number of Addenda: 0 Note Initiated On: 08/07/2025 4:44 PM
--- NOTE | 2025-08-07 17:45 | OP.PROVAT_ITS ---
08/07/2025 Celia Al Do Re : Colonoscopy procedure for Terri Peters Dear Dr. Al This procedure was performed on Thursday, August 07, 2025. My impressions and recommendations are as follows: Impressions : - Preparation of the colon was poor. - A single bleeding colonic angiodysplastic lesion. Treated with argon plasma coagulation (APC). - One 20 mm polyp in the cecum, removed with a hot snare. Resected and retrieved. Clips were placed. Clip conveyor attendant: [employer]. - Stool in the rectum, in the recto-sigmoid colon, in the sigmoid colon, in the descending colon, at the splenic flexure, in the transverse colon, at the hepatic flexure, in the ascending colon and in the cecum. Recommendations : - Return patient to [facility] care. - Resume previous diet. - No aspirin, ibuprofen, naproxen, or other non-steroidal anti-inflammatory drugs for 5 days after polyp removal. - Repeat colonoscopy in 1 year for surveillance. My findings are described in the full procedure note, which is enclosed. If I can be of further assistance, please feel free to contact me at . Sincerely, Aman Parra, 08/07/2025 5:44:35 PM This report has been signed electronically.
--- NOTE | 2025-08-07 17:45 | POSTOPAN2_ITS ---
Anesthesia Postop Eval I Sum Postop Eval Completion status Anesthesia document: Postop Eval 1 completed: Yes Anesthesia Postop Eval I Summary Anesthesia Postop Eval I Summary: Anesthesia Postop Eval I: Assessment Summary Airway patent Yes 08/07/25 17:37 LIFE SCIENCE [email or web address] Spontaneous unlabored Yes 08/07/25 17:37 LIFE SCIENCE TECHNICIAN.[email or web address] respirations Mental status Awake,Calm 08/07/25 17:37 LIFE SCIENCE [email or web address] nausea No 08/07/25 17:37 LIFE SCIENCE [email or web address] Vomiting No 08/07/25 17:37 LIFE SCIENCE [email or web address] Anesthesia Postop Eval I: Fluid Summary Crystalloid volume administer 400 08/07/25 17:37 LIFE SCIENCE [email or web address] (ml) Colloids volume administered ( ml) Blood Product volume administered (ml) Total IV fluid infused 400 08/07/25 17:37 LIFE SCIENCE TECHNICIAN.[email or web address] Anesthesia Postop Eval I: Summary Notes Anesthesia Complication No 08/07/25 17:37 LIFE SCIENCE TECHNICIAN.[email or web address] Anesthesia Complication Comment: Post-operative progress note Anesthesia: Postop Eval II Evaluation Mental status: Awake and Calm Pain Level: 0 nausea: No Vomiting: No Complications Anesthesia Complication: No
--- NOTE | 2025-08-07 17:45 | PCM.POSTANE2 ---
Anesthesia Postop Eval I Sum Postop Eval Completion status Anesthesia document: Postop Eval 1 completed: Yes Anesthesia Postop Eval I Summary Anesthesia Postop Eval I Summary: Anesthesia Postop Eval I: Assessment Summary Airway patent Yes 08/07/25 17:37 AIRBORNE OPERATIONS SUPERINTENDENT.[email or web address] Spontaneous unlabored Yes 08/07/25 17:37 AIRBORNE OPERATIONS SUPERINTENDENT.ESCOBAROBCrista respirations Mental status Awake,Calm 08/07/25 17:37 AIRBORNE OPERATIONS SUPERINTENDENT.[email or web address] nausea No 08/07/25 17:37 AIRBORNE OPERATIONS SUPERINTENDENT.SKOBY Vomiting No 08/07/25 17:37 AIRBORNE OPERATIONS SUPERINTENDENT.[email or web address] Anesthesia Postop Eval I: Fluid Summary Crystalloid volume administer 400 08/07/25 17:37 AIRBORNE OPERATIONS SUPERINTENDENT.[email or web address] (ml) Colloids volume administered ( ml) Blood Product volume administered (ml) Total IV fluid infused 400 08/07/25 17:37 AIRBORNE OPERATIONS SUPERINTENDENT.ESCOBAROBCrista Anesthesia Postop Eval I: Summary Notes Anesthesia Complication No 08/07/25 17:37 AIRBORNE OPERATIONS SUPERINTENDENT.ESCOBAROBCrista Anesthesia Complication Comment: Post-operative progress note Anesthesia: Postop Eval II Evaluation Mental status: Awake and Calm Pain Level: 0 nausea: No Vomiting: No Complications Anesthesia Complication: No
[2025-08-07] MEDS: 0.9% Saline Lock 10 ML Syringe IV (21:06)
[2025-08-08] VITALS (7 sets, daily range): BP systolic 121–149; BP diastolic 46–67; PULSE 67–96; RESP 15–16; TEMP 36.4–36.7; O2SAT 95–99
[2025-08-08] MEDS: Ipratropium 0.5 MG/2.5 ML SOLUTION INHALATION ×3 (07:22→19:27)
--- NOTE | 2025-08-08 07:29 | PN.HOSP_ITS ---
Reason for Visit Chief Complaint: Lightheadedness and dark BM Subjective Subjective No further melena. Objective Data Objective Data Vital Signs: Vital Signs Temp Pulse Resp BP Pulse Ox O2 Del Method 36.4 C L 96 16 149/53 H 95 Room Air 08/08/25 02:20 08/08/25 02:20 08/08/25 02:20 08/08/25 02:20 08/08/25 02:20 08/08/25 02:20 Oxygen Delivery Method Room Air Weight: 57.4 kg Body Mass Index (BMI) 19.8 Intake & Output: Intake and Output for Last 24 Hours 08/06/25 08/07/25 08/08/25 23:59 23:59 23:59 Intake Total 850 / 850 0 / 2390 686.75 / 686.75 Balance 850 / 850 2089 / 0 686.75 / 686.75 Medical Nutrition Assessment Dietitian: Malnutrition Criteria Met Start: 08/05/25 15:54 Freq: Status: Active Protocol: Document 08/05/25 15:54 RMA (Rec: 08/05/25 15:54 RMA [id number]) Nutrition Malnutrition Evidence of Yes Malnutrition Exists Malnutrition (severe Chronic ): Evidenced By Suboptimal Energy Intake (Severe),Weight Loss (Severe), Physical Changes (Moderate) Intake Problem Inadequate Oral Intake Etiology related to altered GI function/bleed Signs/Symptoms as evidenced by NPO Status Active Problem Clinical Problem Chronic Disease or Condition Related Malnutrition Etiology severe protein-calorie malnutrition in the context of chronic disease related to inadequate oral intake Signs/Symptoms as evidenced by >10% unintentional weight loss x 6 months, PO meeting less than 75% estimated nutrition needs x 6 months, BMI 19.8, mild muscle wasting in the arms/legs and currently NPO Status Active Problem Recommendation Dietitian Recommend advance diet as tolerated to carbohydrate- Recommendations/ controlled/sodium-restricted. Changes Will d/c ensure plus HP with medpass for now. Will add PO glucerna shake as diet advanced from NPO. Lab / Micro Data 08/08/25 08:21 08/07/25 04:39 Labs: Laboratory Results - last 24 hr 08/07/25 10:58: POC Glucose 95 08/07/25 18:04: POC Glucose 93 08/07/25 21:00: POC Glucose 189 H 08/08/25 06:31: POC Glucose 92 Rhythm Strip Rhythm Strip: Sinus Rhythm Rate: 85 Ectopy: None Physical Exam Const alert and no apparent distress HEENT head/scalp atraumatic and moist oral mucous membranes Resp normal respiratory effort, no retractions, no use of accessory muscles and clear to auscultation bilaterally Cardio regular rate, regular rhythm, S1 normal heart sound and S2 normal heart sound GI normal to inspection, nondistended, normoactive bowel sounds, soft to palpation, non-tender and non-distended Assessment & Plan Assessment/Plan (1) ABLA (acute blood loss anemia): (2) UGIB (upper gastrointestinal bleed): PLAN: Plan GI bleed * recurrent. On 08/01 she had an EGD that showed multiple bleeding angiectasias and Dieulafoy lesion of the stomach. Patient was admitted with complaint of lightheadedness and dark stools. She was recently admitted for GI bleed and had EGD with several sites been cauterized. She was discharged home but came back with the symptoms. * Hemoglobin was 7.8 on discharge. Hb was 7.4 on admission * Gastroenterology consulted. On IV pantoprazole 40 mg twice daily. Eliquis and cilostazol on hold. * Started on clear liquids last night. Awaiting GI evaluation. * Hg 9.2. Transfused 1 unit PRBCs. Will recheck Hg, if stable, can likely discharge home with pantoprazole. * endoscopy 08/07. EGD no gross lesions in entire esophagus. Red blood in the gastric body. Oozing gastric ulcer with visible vessel. This was treated with argon plasma coagulation. Nonbleeding gastric ulcer with no stigmata of bleeding. Again treated with argon plasma laser. Colonoscopy poor prep. Single bleeding colonic angiodysplastic lesion treated with argon plasma coagulation. 20 mm polyp in the cecum that was removed with a hot snare. Chronic conditions: * History of peripheral vascular disease S/p femoral bypass in May 2025. On Eliquis which is currently on hold. Also on aspirin which is also on hold. Will await GI evaluation and then resume these. * 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: Home meds on hold. Insulin sliding scale. Accu- Cheks ACHS. On Jentadueto at home. * History of COPD: Not in exacerbation. Breathing treatments bronchodilators. Incentive spirometry * Depression and anxiety: On sertraline * History of INGA: On BiPAP at home * Hypothyroidism: On Synthroid * Paroxysmal A-fib: Orthostatics were positive so her carvedilol was decreased to 3.125 mg twice daily on admission. Eliquis currently on hold * History of hypertension: On amlodipine which is on hold. Carvedilol reduced as above. Losartan is on hold. * Hyperlipidemia: On ezetimibe and icosapent as well as atorvastatin DVT prophylaxis: SCDs Charges/Coding Visit Charges Inpatient E&M: 15679 Subs Hosp L2
[2025-08-08 08:29] LABS: Hematocrit 28.3 % (37-47); Hemoglobin 9.2 g/dL (12.0-15.0); Immature Granulocytes Count 0.030 X10^3/uL (0.0-0.0); Mean Corp Hgb Conc 32.5 g/dL (32-36); Mean Corpuscular Volume 93.4 fL (81-99); Mean Platelet Vol. 9.3 fl (6.2-12.0); NRBC Flagged by Analyzer 0 % (0-5); Platelet Count 175 K/mm3 (150-450); RBC Distribution Width CV 17.2 % (11.6-14.6); RBC Distribution Width SD 58.5 fl (35.1-43.9); Red Blood Count 3.03 M/mm3 (4.2-5.4); White Blood Count 7.0 K/mm3 (4.4-11.0)
[2025-08-08] MEDS: Pantoprazole Sodium 40 MG in 0.9% Normal Saline (100mL MB+) 100 ML 300 MG IV ×2 (10:13→22:08)
[2025-08-08] MEDS: FINERENONE 10 MG TABLET PO (10:14)
[2025-08-08 12:47] LABS: Hematocrit 27.3 % (37-47); Hemoglobin 8.8 g/dL (12.0-15.0); Immature Granulocytes Count 0.030 X10^3/uL (0.0-0.0); Mean Corp Hgb Conc 32.2 g/dL (32-36); Mean Corpuscular Volume 94.1 fL (81-99); Mean Platelet Vol. 9.2 fl (6.2-12.0); NRBC Flagged by Analyzer 0 % (0-5); POSITIVE DIFFERENTIAL YES; Platelet Count 167 K/mm3 (150-450); RBC Distribution Width CV 17.4 % (11.6-14.6); RBC Distribution Width SD 59.9 fl (35.1-43.9); Red Blood Count 2.90 M/mm3 (4.2-5.4); White Blood Count 7.2 K/mm3 (4.4-11.0)
[2025-08-08] MEDS: 0.9% Saline Lock 10 ML Syringe IV (22:08)
[2025-08-09 03:24] VITALS: BP 148/52; PULSE 70; RESP 16; TEMP 36.4; O2SAT 94
[2025-08-09 04:22] LABS: Hematocrit 25.6 % (37-47); Hemoglobin 8.3 g/dL (12.0-15.0); Immature Granulocytes Count 0.030 X10^3/uL (0.0-0.0); Mean Corp Hgb Conc 32.4 g/dL (32-36); Mean Corpuscular Volume 93.4 fL (81-99); Mean Platelet Vol. 9.6 fl (6.2-12.0); NRBC Flagged by Analyzer 0 % (0-5); Platelet Count 163 K/mm3 (150-450); RBC Distribution Width CV 17.2 % (11.6-14.6); RBC Distribution Width SD 58.4 fl (35.1-43.9); Red Blood Count 2.74 M/mm3 (4.2-5.4); White Blood Count 6.6 K/mm3 (4.4-11.0)
[2025-08-09] MEDS: Ipratropium 0.5 MG/2.5 ML SOLUTION INHALATION (06:49)
[2025-08-09 06:50] VITALS: PULSE 65; RESP 16; O2SAT 96
[2025-08-09 08:52] VITALS: BP 142/54; PULSE 66; RESP 16; TEMP 36.4; O2SAT 95
[2025-08-09] MEDS: FINERENONE 10 MG TABLET PO (08:57)
--- NOTE | 2025-08-09 09:31 | PCM.DC.SUM ---
Providers Date of Admission: 08/04/25 Primary Care Physician: Dr. Celia Al, DO Consultations 08/04/25 20:25 Consult: Gastroenterology Routine Consulting Provider: Regulo Hennessyology Reason for Consult: GI bleed EMERGENT Consult: No MD Notified: Yes Date Notified: 08/04/25 Time Notified: 19:39 Method of Notification: ED Physician Initiated Reason For Visit: GI BLEED Diagnosis Discharge Diagnosis (1) ABLA (acute blood loss anemia): Status: Acute Code(s): D62 - Acute posthemorrhagic anemia (2) UGIB (upper gastrointestinal bleed): Status: Acute Code(s): K92.2 - Gastrointestinal hemorrhage, unspecified Plan GI bleed recurrent. On 08/01 she had an EGD that showed multiple bleeding angiectasias and Dieulafoy lesion of the stomach. Patient was admitted with complaint of lightheadedness and dark stools. She was recently admitted for GI bleed and had EGD with several sites been cauterized. She was discharged home but came back with the symptoms. Hemoglobin was 7.8 on discharge. Hb was 7.4 on admission Gastroenterology consulted. On IV pantoprazole 40 mg twice daily. Eliquis and cilostazol on hold. Started on clear liquids last night. Awaiting GI evaluation. Hg 9.2. Transfused 1 unit PRBCs. Will recheck Hg, if stable, can likely discharge home with pantoprazole. endoscopy 08/07. EGD no gross lesions in entire esophagus. Red blood in the gastric body. Oozing gastric ulcer with visible vessel. This was treated with argon plasma coagulation. Nonbleeding gastric ulcer with no stigmata of bleeding. Again treated with argon plasma laser. Colonoscopy poor prep. Single bleeding colonic angiodysplastic lesion treated with argon plasma coagulation. 20 mm polyp in the cecum that was removed with a hot snare. Chronic conditions: History of peripheral vascular disease S/p femoral bypass in May 2025. On Eliquis which is currently on hold. Also on aspirin which is also on hold. Will await GI evaluation and then resume these. 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: Home meds on hold. Insulin sliding scale. Accu-Cheks ACHS. On Jentadueto at home. History of COPD: Not in exacerbation. Breathing treatments bronchodilators. Incentive spirometry Depression and anxiety: On sertraline History of INGA: On BiPAP at home Hypothyroidism: On Synthroid Paroxysmal A-fib: Orthostatics were positive so her carvedilol was decreased to 3.125 mg twice daily on admission. Eliquis currently on hold History of hypertension: On amlodipine which is on hold. Carvedilol reduced as above. Losartan is on hold. Hyperlipidemia: On ezetimibe and icosapent as well as atorvastatin DVT prophylaxis: SCDs Medications at Discharge Home Medications amlodipine 2.5 mg tablet 2.5 mg PO DAILY HTN 03/01/25 apixaban 5 mg tablet (Eliquis) 5 mg PO BID BLOOD THINNER 03/01/25 Held on 08/09/25. Instructions: Resume on 08/13/25. blood sugar diagnostic (Contour Next Test Strips) 03/01/25 ezetimibe 10 mg tablet 10 mg PO DAILY HLD 03/01/25 finerenone 10 mg tablet (Kerendia) 10 mg PO DAILY CKD 03/01/25 icosapent ethyl 1 gram capsule (Vascepa) 2 g PO BID HLD 03/01/25 linagliptin 2.5 mg-metformin ER 1,000 mg tablet,extended release 24 hr (Jentadueto XR) 1 tab PO BID DM 03/01/25 rosuvastatin 10 mg tablet 10 mg PO QHS HLD 03/01/25 tiotropium bromide 2.5 mcg/actuation mist for inhalation (Spiriva Respimat) 2 puff inhalation DAILY LUNG DISEASE 03/01/25 carvedilol 12.5 mg tablet 12.5 mg PO BID HTN 03/11/25 losartan 100 mg tablet 100 mg PO DAILY HTN 03/11/25 sertraline 25 mg tablet 25 mg PO QHS MOOD 03/11/25 albuterol sulfate 90 mcg/actuation aerosol inhaler (Ventolin HFA) 2 puff inhalation Q4H PRN shortness of breath or wheezing 04/12/25 cholecalciferol (vitamin D3) 50 mcg (2,000 unit) capsule 50 mcg PO QDAY SUPPLEMENT 04/12/25 ferrous sulfate 137 mg (45 mg iron) tablet,extended release (Slow Fe) 137 mg PO DAILY SUPPLEMENT 05/19/25 BIPAP -Bilevel Positive Airway Pressure ([facility] INFORMATIONAL USE ONLY) INGA 06/06/25 acetaminophen 325 mg tablet 650 mg (2 x 325 mg) PO Q6H PRN PRN Pain 1-10 Or Fever >100.7 #0 tabs 06/09/25 cilostazol 50 mg tablet 50 mg PO BID pain #60 tabs 07/27/25 Held on 08/09/25. Instructions: Resume on 08/13/25. pantoprazole 40 mg tablet,delayed release 40 mg PO BID GERD 30 days #60 tabs 08/01/25 clindamycin phosphate 1 % lotion 1 applic topical BID PRN itching 08/04/25 Hospital Course Procedures EGD Summary of Care Provided Hospital Course: Greater than 30 minutes spent on discharge this is a 80-year-old female with peripheral arterial disease and GI bleed presents with lightheadedness and melena. Hemoglobin was 7.4 on admission. Patient was transfused 1 unit of packed red blood cells while she was here. Patient did have alfonso melena while she was here. Patient underwent an EGD on the that showed no gross lesions within the esophagus. Red blood within the gastric body. Oozing gastric vessel with a visible vessel treated with argon plasma coagulation. Nonbleeding gastric ulcer with no stigmata of bleeding treated with argon laser. Colonoscopy performed the same day showed poor prep. Single bleeding colonic angiodysplastic lesion was treated with argon plasma coagulation. I did also have a polyp in the cecum that showed. Patient's hemoglobin overall improved and did slowly drift down while she was here but patient had no further bowel movements therefore no or any melena. Patient otherwise feels well other than some bloating. Patient will continue with twice daily PPI therapy and she will hold off on her apixaban and cilostazol for 96 hours. Patient follow-up with gastroenterology. Patient has an appointment on the for capsule endoscopy and follow-up with scar surgery. Medical Records Data Medical Nutrition Assessment Dietitian: Malnutrition Criteria Met Start: 08/05/25 15:54 Freq: Status: Active Protocol: Document 08/08/25 13:12 RMA (Rec: 08/08/25 13:12 RMA [id number]) Nutrition Malnutrition Evidence of Yes Malnutrition Exists Malnutrition (severe Chronic ): Evidenced By Suboptimal Energy Intake (Severe),Weight Loss (Severe), Physical Changes (Moderate) Intake Problem Inadequate Oral Intake Etiology related to altered GI function/bleed Signs/Symptoms as evidenced by NPO Status Resolved Problem Clinical Problem Chronic Disease or Condition Related Malnutrition Etiology severe protein-calorie malnutrition in the context of chronic disease related to inadequate oral intake Signs/Symptoms as evidenced by >10% unintentional weight loss x 6 months, PO meeting less than 75% estimated nutrition needs x 6 months, BMI 19.8, mild muscle wasting in the arms/legs Status Active Problem Recommendation Dietitian Will adjust diet to carbohydrate-controlled (no caloric Recommendations/ restriction). Changes Restrict sodium as needed if PO improves at meals due to history of CHF. Will add 120mL glucerna shake TID with meals. Additional ONS as needed. Trend weights as available. Weight / BMI Weight Weight: 57.4 kg Body Mass Index (BMI) 19.8 ABG / Lab / Microbiology Data 08/09/25 03:38 08/07/25 04:39 Laboratory: Laboratory Results - last 24 hr 08/08/25 11:14: POC Glucose 163 H 08/08/25 12:38: WBC 7.2, RBC 2.90 L, Hgb 8.8 L, Hct 27.3 L, MCV 94.1, MCH 30.3, MCHC 32.2, RDW Std Deviation 59.9 H, RDW Coeff of [place] 17.4 H, Plt Count 167, MPV 9.2, Immature Gran % (Auto) 0.400, Neut % (Auto) 80.5 H, Lymph % (Auto) 8.1 L, [place] % (Auto) 7.3, Eos % (Auto) 2.9, Baso % (Auto) 0.8, Absolute Neuts (auto) 5.8, Absolute Lymphs (auto) 0.59 L, Nucleated RBC % 0 08/08/25 16:36: POC Glucose 120 H 08/08/25 22:12: POC Glucose 117 H 08/09/25 03:38: WBC 6.6, RBC 2.74 L, Hgb 8.3 L, Hct 25.6 L, MCV 93.4, MCH 30.3, MCHC 32.4, RDW Std Deviation 58.4 H, RDW Coeff of [place] 17.2 H, Plt Count 163, MPV 9.6, Immature Gran % (Auto) 0.500, Neut % (Auto) 71.2 H, Lymph % (Auto) 15.0 L, [place] % (Auto) 9.3, Eos % (Auto) 3.1, Baso % (Auto) 0.9, Absolute Neuts (auto) 4.7, Absolute Lymphs (auto) 0.98, Nucleated RBC % 0 08/09/25 06:25: POC Glucose 143 H D/C Instructions DC O2, CPAP, BIPAP Needs Home O2 Discharge instructions: No Meaningful Use Info Meaningful Use Meaningful Use Diagnoses (Choose all that apply): None applicable Discharge Plan Admission Admit Date/Time: 08/04/25 19:35 Primary Reason for Your Visit: GI bleed Attending Provider: Reginald Foy Primary Care Provider: Celia Al Consulting Providers: Ronnie Godwin; Aman Parar; Beti Rose; Tana Alonzo; Elizabeth Nava; Geovanna Kauffman; Moon Tam Instructions Additional Instructions / Restrictions: Notify your physician or return to the emergency room if you have black stools or blood in your stools again. Please call your primary care doctor next week to have some blood work to make sure your blood count is remaining stable. Discharge Orders/Prescriptions Prescriptions: Continued albuterol sulfate [Ventolin HFA] 90 mcg/actuation HFA aerosol inhaler 2 puff inhalation Q4H PRN (Reason: shortness of breath or wheezing) cholecalciferol (vitamin D3) 50 mcg (2,000 unit) capsule 50 mcg PO QDAY carvedilol 12.5 mg tablet 12.5 mg PO BID losartan 100 mg tablet 100 mg PO DAILY sertraline 25 mg tablet 25 mg PO QHS Slow Fe 137 mg (45 mg iron) tablet extended release 137 mg PO DAILY BIPAP -Bilevel Positive Airway Pressure ([facility] INFORMATIONAL USE ONLY) Patient Comments: pt has home bipap, D[facility]. pt does not know settings acetaminophen 325 mg Tablet 650 mg PO Q6H PRN PRN (Reason: Pain 1-10 Or Fever >100.7) Qty: 0 0RF pantoprazole 40 mg tablet,delayed release (DR/EC) 40 mg PO BID 30 Days Qty: 60 0RF clindamycin phosphate 1 % lotion 1 applic topical BID PRN (Reason: itching) amlodipine 2.5 mg tablet 2.5 mg PO DAILY (DME) Contour Next Test Strips Strip 1 strip MISCELLANEOUS BID ezetimibe 10 mg tablet 10 mg PO DAILY rosuvastatin 10 mg tablet 10 mg PO QHS Spiriva Respimat 2.5 mcg/actuation mist 2 puff inhalation DAILY icosapent ethyl [Vascepa] 1 gram capsule 2 g PO BID Patient Comments: Patient does not always take this med as schedule. She doesn't always have an appetite, so she will not take them if she skips a meal. Jentadueto XR 2.5-1,000 mg tablet, IR - ER, biphasic 24hr 1 tab PO BID Kerendia 10 mg tablet 10 mg PO DAILY Held Eliquis 5 mg tablet 5 mg PO BID Hold Instructions: Resume on 08/13/25. cilostazol 50 mg tablet 50 mg PO BID Qty: 60 5RF Hold Instructions: Resume on 08/13/25. Discontinued furosemide [Lasix] 20 mg tablet 20 mg PO DAILY Referrals / Follow Up: [facility] [Provider Group] - Within 1 Month Celia Al DO [Primary Care Provider, Family Practice] - Within 1 Week Aman Parra DO [Med Staff - Active Staff, Gastroenterology] - 08/14/25 10:00 am Disposition Disposition (needs filled in before D/C Order can be placed): Home, Self Care Charges/Coding Visit Charges Inpatient E&M: 03640 Disch Hosp >30min
[2025-08-09] MEDS: 0.9% Saline Lock 10 ML Syringe IV (10:04)
[2025-08-09] MEDS: Pantoprazole Sodium 40 MG in 0.9% Normal Saline (100mL MB+) 100 ML 300 MG IV (10:04)
--- NOTE | 2025-08-09 10:30 | CASEMGMT ---
Patient has order for discharge. RN CM in to discuss needs at discharge. Patient denies needs or help at discharge. Patient had no further questions or concerns.
== END 2025-08-09 11:16 | disposition home or self-care (01) | DRG 377 ==
LOC: ED 18:40 → MS3 19:58
PROVIDERS: Anesthesiology; Internal Medicine Gastroenterology; Student in an Organized Health Care Education/Training Program; Admitting Provider Internal Medicine; Emergency Provider Emergency Medicine; PCP Student in an Organized Health Care Education/Training Program
PROC: 0DJD8ZZ Inspection of Lower Intestinal Tract, Via Natural or Artificial Opening Endoscopic (ICD-10-PCS; CPT 45378; principal; 2025-08-07 13:10)
DX: K25.4 Chronic or unspecified gastric ulcer with hemorrhage (principal); E43 Unspecified severe protein-calorie malnutrition; N17.9 Acute kidney failure, unspecified; I50.32 Chronic diastolic (congestive) heart failure; D62 Acute posthemorrhagic anemia; Z68.1 Body mass index [BMI] 19.9 or less, adult; K55.21 Angiodysplasia of colon with hemorrhage; E11.40 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 with diabetic neuropathy, unspecified; D50.9 Iron deficiency anemia, unspecified; E86.9 Volume depletion, unspecified; J44.9 Chronic obstructive pulmonary disease, unspecified; I11.0 Hypertensive heart disease with heart failure; E03.9 Hypothyroidism, unspecified; F32.A Depression, unspecified; Z95.828 Presence of other vascular implants and grafts; I48.0 Paroxysmal atrial fibrillation; D12.0 Benign neoplasm of cecum; E11.51 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 with diabetic peripheral angiopathy without gangrene; E78.5 Hyperlipidemia, unspecified; F41.9 Anxiety disorder, unspecified; K21.9 Gastro-esophageal reflux disease without esophagitis; I95.1 Orthostatic hypotension; G47.33 Obstructive sleep apnea (adult) (pediatric); K31.7 Polyp of stomach and duodenum; Z87.19 Personal history of other diseases of the digestive system; Z79.01 Long term (current) use of anticoagulants; Z79.84 Long term (current) use of oral hypoglycemic drugs; Z79.51 Long term (current) use of inhaled steroids; Z79.82 Long term (current) use of aspirin; Z91.199 Patient's noncompliance with other medical treatment and regimen due to unspecified reason; Z79.890 Hormone replacement therapy; Z79.899 Other long term (current) drug therapy; Z87.891 Personal history of nicotine dependence
CPT/HCPCS: 36415; 80048; 82962; 85014; 85018; 85025; 85610; 85730; 86850; 86900; 86901; 88305; 93005; 94640; 94668; 97802; 97803; 99283; C1889; P9016; A4216